=== PATIENT | female | born 1990 | race Caucasian/White ===

== ENCOUNTER 2019-12-05 14:16 | Outpatient (CLI) | payer OTHER, SELFPAY ==
--- NOTE | ~2019-12-05 | XR_ITS ---
XR toe 2nd RT min 2V DATE: 12/05/2019 14:41 INDICATION: Right toe caught on wall while walking 2 months ago. Pain. TECHNIQUE: 3 views COMPARISON: None FINDINGS: There is an intra-articular minimally displaced fracture of the head of the proximal phalan x, with some new bone formation identified. There is a linear intra-articular dorsal avulsion fracture of the base of the distal phalanx with min imal displacement. IMPRESSION: Fractures of the proximal and distal phalanges of the second digit Reviewed, dictated and finalized at location A.
== END 2019-12-05 14:17 | disposition home or self-care (01) ==
LOC: CHSIMG 14:20
PROVIDERS: PCP Family Medicine; Visit Provider Family Medicine
DX: M79.674 Pain in right toe(s) (principal)
CPT/HCPCS: 73660

== ENCOUNTER 2019-12-07 08:17 | Outpatient (CLI) | payer OTHER, SELFPAY ==
[2019-12-07 08:29] LABS: Basophils Absolute Auto 0.05 K/mm3 (0.00-0.10); Basophils Percent Auto 0.5 % (0.0-1.0); Eosinophils Percent Auto 1.9 % (1.0-6.0); Hematocrit 20.9 % (35.0-49.0); Immature Platelet Fraction Pct 22.8 % (1.0-7.0); Lymphocytes Absolute Auto 1.82 K/mm3 (1.10-4.50); Lymphocytes Percent Auto 17.3 % (18.0-42.0); Mean Corpuscular HGB Conc 28.2 g/dL (32.0-36.0); Mean Corpuscular Volume 63.7 fL (78.0-102.0); Monocytes Absolute Auto 0.61 K/mm3 (0.10-0.90); Monocytes Percent Auto 5.8 % (2.0-11.0); Neutrophils Absolute Auto 7.7 K/mm3 (1.7-7.2); Neutrophils Percent Auto 73.5 % (50.0-70.0); Nucleated Red Blood Cells Absolute Auto 0.03 K/mm3 (0.00-0.00); Nucleated Red Blood Cells Perc 0.3 % (0-0.0); Platelet Count Result 61 K/mm3 (150-420); Red Blood Count 3.28 M/mm3 (4.20-5.40); Red Cell Distribution Width 19.3 % (11.6-14.4); White Blood Count 10.5 K/mm3 (4.8-10.8)
[2019-12-07 08:47] LABS: Hemoglobin 5.9 g/dL (12.0-15.0)
== END 2019-12-07 08:18 | disposition home or self-care (01) ==
PROVIDERS: PCP Family Medicine; Visit Provider Family Medicine
DX: D64.9 Anemia, unspecified (principal)
CPT/HCPCS: 36415; 85025; 85055

== ENCOUNTER 2019-12-07 16:49 | Emergency (ER) | payer OTHER, SELFPAY ==
--- NOTE | ~2019-12-07 | US_ITS ---
EXAMINATION: US OB f/u add gest DATE: 12/07/2019 17:53 INDICATION: Severe anemia, gestation of unknown age due to absent care TECHNIQUE: Real-time ultrasound of the pelvis was performed. COMPARISON: None. FINDINGS: There are two living fetuses by a thin membrane. The placenta is anterior. Venous lakes are noted in the placenta. The amniotic fluid volume is normal. Fetus A: Presentation is vertex. heart rate is 167 beats per minute (bpm). The following biometric data were obtained: BPD: 4.3 cm. Head circumference: 16.1 cm. Abdominal circumference: 13.9 cm. Femur length: 2.9 cm. These measurements are concordant. Estimated weight: 282 g (+/-) 42 g. Estimated gestational age is 19 weeks,1 day +/- 9 days. Fetus B: Presentation is transverse. heart rate is 165 bpm. The following biometric data were obtained: BPD: 4.2 cm. Head circumference: 15.9 cm. Abdominal circumference: 13.7 cm. Femur length: 2.9 cm. These measurements are concordant. Estimated weight: 268 g (+/-) 40 g. Estimated gestational age is 18 weeks, 6 days +/- 9 days. IMPRESSION: 1. Living twin fetuses. 2. Normal placenta. 3. Gestational age by ultrasound of 19 weeks,1 day +/- 9 days ultrasound estimated date of delivery (FABIAN) of 05/01/2020 fetus A and 18 weeks,6 days +/- 9 days with an FABIAN of 05/03/2020 fetus B. Reviewed, dictated and finalized at location A. IMPRESSION: 1. Living twin fetuses. 2. Normal placenta. 3. Gestational age by ultrasound of 19 weeks,1 day +/- 9 days ultrasound paramjit mated date of delivery (FABIAN) of 05/01/2020 fetus A and 18 weeks,6 days +/- 9 day s with an FABIAN of 05/03/2020 fetus B.
[2019-12-07 16:53] VITALS: BP 107/64; PULSE 100; RESP 16; TEMP 36.6; O2SAT 100
--- NOTE | 2019-12-07 17:13 | ED.GENADULT ---
HPI - General Adult General Chief complaint: Recheck/Abnormal Lab/Rx Stated complaint: Possible , Anemia? Source: patient Mode of arrival: ambulatory Limitations: no limitations History of Present Illness HPI narrative: Patient is a 29-year-old G3, P2 who presents to the emergency department for evaluation of shortness of breath, low hemoglobin. Patient was referred to us by [facility], she was seen there and found to have symptomatic anemia with a hematocrit of 5.9. Patient does endorse some dyspnea with exertion. No lightheadedness or dizziness. No vaginal bleeding, abdominal pain or loss of fluids. No contraction-like pain. Patient states her last menstrual period was the end of July. Patient states that she has had very limited care because she did not feel . Prior 2 pregnancies were uncomplicated, resulted in spontaneous vaginal deliveries in [place] where her previous [employer] is. Patient has a history of hepatitis C which was active, and methamphetamine use. She denies other IV drug use. Related Data Home Medications Medication Instructions Recorded Confirmed No Home Medications 12/07/19 12/07/19 Allergies Allergy/AdvReac Type Severity Reaction Status Date / Time bee venom protein (honey bee) Allergy Swelling Verified 12/07/19 17:29 [bees] shellfish derived Allergy Unknown Verified 12/07/19 17:29 Review of Systems Review of Systems: Narrative: CONSTITUTIONAL: Denies fever, chills, or sweats. EYES: Denies visual changes ENT: Denies rhinorrhea, congestion, sore throat, or otalgia. CARDIOVASCULAR: Denies chest pain RESPIRATORY: Denies cough, reports shortness of breath with exertion GASTROINTESTINAL: Denies abdominal pain, nausea, vomiting GENITOURINARY: Denies dysuria or hematuria. SKIN: Denies rash or itching. MUSCULOSKELETAL: Denies back pain, joint pain, or myalgia. NEUROLOGIC: Denies headache, numbness, or weakness. [facility] Past Medical History Medical History (Updated 12/07/19 @ 19:15 by Elmira Martinez MD) Migraine Surgical History Surgical History (Updated 12/07/19 @ 17:18 by Elmira Martinez MD) No pertinent past surgical history Social History Social History (Updated 12/07/19 @ 17:18 by Elmira Martinez MD) Smoking status: Never smoker Alcohol intake: never Substance use: current Substance use type: amphetamines Gender identity (if verbalized by the patient): Female Exam Narrative: Exam Narrative: GENERAL: Awake, alert, conversant HEAD: Normocephalic, atraumatic. EYES: PERRLA and EOMI. ENT: Nares clear, no rhinorrhea or epistaxis. Mucous membranes moist. NECK: Supple. CHEST: No respiratory distress, breathing even and non labored HEART: Regular rate, sinus rhythm ABDOMEN:Non tender, gravid appearing, fundus palpable at the level of the umbilicus EXTREMITIES: Normal range of motion. No edema. SKIN: Warm, dry, no rash. NEURO:No focal deficits. Alert and oriented x3 Course Course Emergency Course: Patient presented for evaluation of symptomatic anemia as a referred from primary care physician. At the time of initial assessment, ABCs are intact, vital signs are stable. Patient is , not experienced any vaginal bleeding, loss of fluids. No care at this point. Laboratory work-up confirms severe anemia with hemoglobin of 5.9 and thrombocytopenia. Patient also with a urinary tract infection. Patient given oral antibiotics (Keflex) in the ER. Patient has twin on ultrasound. Mild transaminitis consistent with history of hepatitis. HIV lab test pending. Patient to be transferred over to [place] for evaluation by maternal- medicine and anemia work-up to occur at that facility. As the patient is hemodynamically stable, they advised against blood transfusion until they could evaluate her and perform a full. Patient was then transferred in stable condition. Vital Signs Vital signs: Vital Signs Te
[2019-12-07 17:33] VITALS: BP 115/88; PULSE 106; RESP 18; TEMP 36.8; O2SAT 100
[2019-12-07 17:33] LABS: Basophils Percent Auto 0.4 % (0.2-1.2); Eosinophils Absolute Auto 0.2 K/mm3 (0-0.3); Eosinophils Percent Auto 1.7 % (0-4.4); Hematocrit 21.3 % (37.0-47.0); Immature Granulocyte Absolute 0.11 K/mm3 (0.00-0.031); Immature Platelet Fraction Pct 25.9 % (0.9-11.2); Lymphocytes Percent Auto 16.1 % (18.3-44.2); Mean Corpuscular HGB Conc 27.7 g/dl (32-36); Mean Corpuscular Hemoglobin 17.8 pg (26-34); Mean Corpuscular Volume 64.2 fl (80-100); Monocytes Absolute Auto 0.7 K/mm3 (0.1-0.6); Monocytes Percent Auto 6.4 % (2.6-8.5); Neutrophils Absolute Auto 7.9 K/mm3 (1.3-6.7); Neutrophils Percent Auto 74.4 % (45.5-73.1); Platelet Count Result 63 k/mm3 (150-375); Red Blood Count 3.32 M/mm3 (4.2-5.4); Red Cell Distribution Width 19.6 % (11.5-14.5); White Blood Count 10.6 K/mm3 (4.5-10.0)
[2019-12-07 17:39] LABS: Add Urine Microscopic? YES; Appearance Urine Clear (Clear); Bacteria Urine 4+ /hpf; Bilirubin Urine Negative (Negative); Blood Urine Negative (Negative); Color Urine Yellow (Yellow); Glucose Urine UA Negative (Negative); Ketones Urine Negative (Negative); Leukocyte Esterase Ur Trace LEU/UL (Negative); Mucus Urine Few /lpf; Nitrate Urine Positive (Negative); Protein Urine 1+ mg/dL (Negative); RBC Urine 0-2 /hpf (0-2); Specific Grav Ur 1.021 (1.001-1.035); Squamous Epithelial Cell Urine Moderate /hpf (Few)
[2019-12-07 17:44] LABS: INR 0.9
[2019-12-07 17:45] LABS: Partial Thromboplastin Time 27.1 SECONDS (22.3-36.8)
[2019-12-07 17:45] LABS: Hemoglobin 5.9 g/dL (12.0-15.0)
[2019-12-07 17:47] LABS: Platelet Estimate Decreased (Adequate)
[2019-12-07 17:48] LABS: Anisocytosis 1+ (NORMAL); Hypochromasia 1+ (NORMAL)
[2019-12-07 17:49] LABS: Ovalocytes 1+ (NORMAL); Tear Drop Cells 1+ (NORMAL)
[2019-12-07 17:52] LABS: Alanine Aminotransferase 61 U/L (4-35); Albumin Level 3.6 g/dL (3.5-5.1); Alkaline Phosphatase 79 U/L (38-126); Aspartate Amino Transferase 65 U/L (14-36); Bilirubin,Total 0.2 mg/dL (0.2-1.3); Blood Urea Nitrogen 9 mg/dL (7-17); Calcium 8.5 mg/dL (8.4-10.2); Carbon Dioxide 22 mmol/L (22-30); Chloride 108 mmol/L (98-107); Estimated CRCL calculation 112 ml/min; Estimated Glomerular Filt Rate > 60; Glucose 76 mg/dL (65-105); Potassium 3.6 mmol/L (3.4-5.0); Sodium 135 mmol/L (137-145)
--- NOTE | 2019-12-07 18:26 | PC.NURSE ---
EDP and RN updated Pt. on their condition and the need for a blood transfusion and a transfer to a high risk OBGYN facility. Pt. states I am not ready to consent yet, I don't know what to do. I want to talk to my mom . RN and EDP both attempted to educate Pt. on need for these treatments and Pt. still denied but has not fully refused treatment. No consent signed at this time. EDP notified and is aware. 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
[2019-12-07 18:33] LABS: HIV 1/2 Ab P24 Ag Result Negative (Negative)
[2019-12-07 19:37] LABS: Barbiturate Screen Urine Negative (Negative); Benzodiazepines Screen Urine Negative (Negative)
[2019-12-07 19:50] LABS: Cannabinoid Screen Urine Negative (Negative); Cocaine Screen Urine Negative (Negative); Methadone Screen Urine Negative (Negative); Opiate Screen Urine Negative (Negative); Phencyclidine Screen Urine Negative (Negative)
[2019-12-07 19:58] LABS: Amphetamine Screen Urine Positive (Negative)
--- NOTE | 2019-12-07 19:59 | PC.NURSE ---
Called [facility] to transport patient to [place], Room 584. ETA [id number]
[2019-12-07] MEDS: CEPHALEXIN 500 MG CAPSULE PO (20:01)
--- NOTE | 2019-12-07 20:02 | PC.NURSE ---
ED report given to nurse Marilu on OB floor, by ALICE robb. Pt anita be going to room 584. Charge nurse notified. Pt did sign transfer form willing. Pt states she really would like and feel more comfortable if someone could be with her in her room. Pt seems a little anxious at this time. A snack was offered and given in hopes to calm Pt.
[2019-12-07 20:06] VITALS: BP 133/85; PULSE 98; RESP 21
[2019-12-07 20:29] VITALS: BP 137/87; PULSE 104; O2SAT 100
== END 2019-12-07 20:30 | disposition short-term general hospital (02) ==
PROVIDERS: Emergency Provider Emergency Medicine; PCP Family Medicine
DX: O99.012 Anemia complicating pregnancy, second trimester (principal); D64.9 Anemia, unspecified; O98.412 Viral hepatitis complicating pregnancy, second trimester; B19.20 Unspecified viral hepatitis C without hepatic coma; O99.112 Other diseases of the blood and blood-forming organs and certain disorders involving the immune mechanism complicating pregnancy, second trimester; D69.6 Thrombocytopenia, unspecified; Z3A.19 19 weeks gestation of pregnancy; O30.002 Twin pregnancy, unspecified number of placenta and unspecified number of amniotic sacs, second trimester
CPT/HCPCS: 36415; 76816; 80053; 80307; 81001; 81025; 85025; 85055; 85610; 85730; 86703; 86850; 86900; 86901; 99285; A9270; G0432

== ENCOUNTER 2020-04-17 15:01 | Emergency (ER) | payer OTHER, SELFPAY ==
--- NOTE | ~2020-04-17 | US_ITS ---
US OB limited 04/17/2020 15:55 Indication: with bleeding and clots. Procedure: High-resolution Limited obstetrical ultrasound Comparison: 12/07/2019 Findings: There are twin living intrauterine pregnancies in vertex presentation. Twin A has a heart r ate of 122 BPM. Twin B has a heart rate of 133 BPM. Placenta is anterior. Amniotic fluid is subjectiv ramona normal with largest pocket measuring 5 cm. Impression: 1: Twin living intrauterine in vertex presentation. Reviewed, dictated and finalized at location A. Impression: 1: Twin living intrauterine in vertex presentation.
[2020-04-17 16:00] VITALS: BP 128/90; PULSE 91; RESP 20; O2SAT 99
[2020-04-17] MEDS: SODIUM CHLORIDE 0.9% IV 1,000 ML 999 ML IV CONT (16:02)
[2020-04-17 16:06] VITALS: BP 135/89; PULSE 116; RESP 20; TEMP 36.7; O2SAT 98
[2020-04-17 16:14] LABS: Hematocrit 33.8 % (35.0-49.0); Hemoglobin 10.8 g/dL (12.0-15.0); Immature Platelet Fraction Pct 33.2 % (1.0-7.0); Mean Corpuscular Hemoglobin 26.5 pg (27.0-31.0); Platelet Count Result 36 K/mm3 (150-420); Red Blood Count 4.07 M/mm3 (4.20-5.40); Red Cell Distribution Width 19.3 % (11.6-14.4); White Blood Count 7.7 K/mm3 (4.8-10.8)
[2020-04-17 16:26] LABS: INR 0.9; Partial Thromboplastin Time 29.9 SEC (22.3-31.6); Prothrombin Time 9.6 Seconds (9.64-11.0)
[2020-04-17 16:36] LABS: Alanine Aminotransferase 40 U/L (14-59); Alkaline Phosphatase 305 U/L (46-116); Anion Gap 11 mmol/L (8-16); Aspartate Amino Transferase 51 U/L (15-37); Bilirubin,Total 0.3 mg/dL (0.00-1.00); Blood Urea Nitrogen 22 mg/dL (7-18); Calcium 8.1 mg/dL (8.5-10.1); Carbon Dioxide 17 mmol/L (21-32); Chloride 106 mmol/L (98-108); Estimated CRCL calculation 58 ml/min; Estimated Glomerular Filt Rate 51; Glucose 107 mg/dL (70-99); Osmolality Calculated 281 mOsm/kg (285-295); Potassium 3.8 mmol/L (3.5-5.1); Sodium 134 mmol/L (136-145); Total Protein 6.1 g/dL (6.4-8.2)
[2020-04-17 17:00] VITALS: BP 141/93; PULSE 89; RESP 20; O2SAT 98
--- NOTE | 2020-04-17 17:25 | ED.GENADULT ---
HPI - General Adult General Chief complaint: Vaginal Bleeding Stated complaint: bleeding/ Source: patient Mode of arrival: ambulatory History of Present Illness HPI narrative: This is a 29-year-old female that is 38 weeks with twins receives care at [facility] [place], presents with some a vaginal bleeding with passing clots that started around 2 3 in the afternoon, patient currently in no acute distress vital signs are stable no abdominal pain. Patient had noticed passing clots in vaginal bleeding earlier today with no fever chills no shortness of breath no chest pain. The patient is with twins 38 weeks and due date is May 01. Patient has a history of a according to patient a blood disorder with low platelets possibility of thrombocytopenia. Onset (ago): hour(s) Location: pelvis Severity: moderate Related Data Home Medications Medication Instructions Recorded Confirmed [id number]-FA 1 tablet PO DAILY 04/17/20 04/17/20 [] Allergies Allergy/AdvReac Type Severity Reaction Status Date / Time bee venom protein (honey bee) Allergy Swelling Verified 04/17/20 16:19 [bees] shellfish derived Allergy Unknown Verified 04/17/20 16:19 Review of Systems Review of Systems: All systems reviewed & are unremarkable except as noted in HPI and below PMFSH Past Medical History Medical History History of Migraine Surgical History Surgical History No pertinent past surgical history Social History Social History Smoking status: Never smoker Alcohol intake: never Substance use: current Substance use type: amphetamines Gender identity (if verbalized by the patient): Female Exam Const: General: no acute distress Orientation/consciousness: patient oriented x3 HENMT: Head: normal to inspection Eyes: Conjunctivae: conjunctivae normal Pupils: Equal, round and reactive pupils present EOM: EOMs intact bilaterally Neck: Neck: normal visual inspection, no lymphadenopathy and no meningeal signs Chest: Chest palpation & inspection: normal inspection of the chest Resp: Effort & Inspection: normal respiratory effort Auscultation: clear to auscultation bilaterally Cardio: Rate: regular rate Rhythm: regular rhythm GI: GI Palp: Yes Soft to palpation Percussion: Yes normal to percussion : General: Yes no CVA tenderness Other: pelvic exam shows some trickle of blood that appears to be pink tinged. Back/Spine/Pelvis: Back: no CVA tenderness Skin: General skin exam: normal color Rashes: no rashes Neuro: General: patient oriented x3 Psych: Appearance: grossly normal Mental Status: mental status grossly normal Affect: normal affect Course Course Emergency Course: Reassessment patient patient currently stable her vital signs are stable with a blood pressure 135/89 with a heart rate of 116 O2 sats of 98%. After pelvic exam visualized blood that appeared with pink tinged from the the vaginal vault. Called [facility] in [place] and discussed case with some the OB department with some accepting physician Dr. VANCE. And [facility] will be sending a OB team/ambulance to transport patient to their facility. Obtained ultrasound which showed an anterior placenta /amniotic fluid subjectively normal with the largest pocket measuring 5cm. heart tones per ultrasound is a twin with heart tone in the [facility] at 1:22 a.m. and baby Mackenzie at 1:33 a.m.. Blood was drawn which showed an H&H of 10 and 33.8 with a platelet count of 36. patient and family informed about being transported to [facility] in [place] for further evaluation by the OB team. Vital Signs Vital signs: Vital Signs Temperature 36.7 C 04/17/20 16:06 Pu
--- NOTE | 2020-04-17 18:20 | PC.NURSE ---
1715 report given to Marilu JENKINS who is on the Transport team on her way to scrap picker pt 1815 pt update called to Marilu JENKINS pt having more clots at this time with small amt of cramping pt voided on bedpan and placed on her left side heart tones assessed baby B 166 baby A 155 Transport should be here in 15-20 mins
[2020-04-17 18:30] VITALS: BP 129/71; PULSE 95; RESP 20; O2SAT 99
--- NOTE | 2020-04-17 18:45 | PC.NURSE ---
1840 [facility] transfer service here to take pt
== END 2020-04-17 19:00 | disposition short-term general hospital (02) ==
PROVIDERS: Emergency Provider Emergency Medicine
DX: O46.93 Antepartum hemorrhage, unspecified, third trimester (principal)
CPT/HCPCS: 36415; 76815; 80053; 85027; 85055; 85610; 85730; 96360; 99285; J7030

== ENCOUNTER 2020-04-30 11:38 | Outpatient (CLI) | payer OTHER, SELFPAY ==
[2020-04-30 11:52] LABS: Basophils Absolute Auto 0.03 K/mm3 (0.00-0.10); Basophils Percent Auto 0.2 % (0.0-1.0); Eosinophils Absolute Auto 0.15 K/mm3 (0.02-0.50); Eosinophils Percent Auto 1.2 % (1.0-6.0); Hematocrit 35.8 % (35.0-49.0); Hemoglobin 11.1 g/dL (12.0-15.0); Immature Granulocyte Absolute 0.17 K/mm3 (0.00-0.00); Immature Granulocyte Percent A 1.3 % (0.0-0.0); Immature Platelet Fraction Pct 8.8 % (1.0-7.0); Lymphocytes Absolute Auto 1.17 K/mm3 (1.10-4.50); Lymphocytes Percent Auto 9.2 % (18.0-42.0); Mean Corpuscular Hemoglobin 29.4 pg (27.0-31.0); Mean Corpuscular Volume 94.7 fL (78.0-102.0); Monocytes Absolute Auto 0.61 K/mm3 (0.10-0.90); Monocytes Percent Auto 4.8 % (2.0-11.0); Neutrophils Absolute Auto 10.6 K/mm3 (1.7-7.2); Neutrophils Percent Auto 83.3 % (50.0-70.0); Platelet Count Result 34 K/mm3 (150-420); Red Blood Count 3.78 M/mm3 (4.20-5.40); Red Cell Distribution Width 26.7 % (11.6-14.4); White Blood Count 12.7 K/mm3 (4.8-10.8)
== END 2020-04-30 11:39 | disposition home or self-care (01) ==
LOC: CHSLAB 11:41
PROVIDERS: PCP Family Medicine; Visit Provider Family Medicine
DX: D61.818 Other pancytopenia (principal)
CPT/HCPCS: 36415; 85025; 85055

== ENCOUNTER 2021-01-11 22:30 | Emergency (ER) | payer OTHER, SELFPAY ==
[2021-01-11 22:40] VITALS: BP 123/71; PULSE 78; RESP 20; TEMP 36.8; O2SAT 99
--- NOTE | 2021-01-11 22:49 | ED.DENTAL ---
HPI - Dental/Oral General Chief complaint: Dental/Oral Stated complaint: tooth pain on lower jaw both sides Time Seen by Provider: 01/11/21 22:49 Source: patient Mode of arrival: ambulatory Limitations: no limitations History of Present Illness HPI Narrative: 28-year-old woman with history of ITP comes in today complaining of right lower jaw pain that radiates to her ear and mormonism. She states that she has some problem teeth in her right lower jaw. She has pain radiating to her right ear and mormonism. She denies fever, nausea, vomiting, difficulty swallowing, difficulty breathing, cough or cold symptoms. She has an IUD. Complaint: tooth pain Onset (ago): day(s) (5) Duration: constant Severity: severe Relieving factors: nothing Exacerbating factors: chewing, cold and drinking fluids Context: history of dental caries and poor dental care Associated symptoms: gum swelling Treatment prior to arrival: none Related Data Allergies Allergy/AdvReac Type Severity Reaction Status Date / Time bee venom protein (honey bee) Allergy Swelling Verified 04/17/20 16:19 [bees] shellfish derived Allergy Unknown Verified 04/17/20 16:19 Review of Systems Review of Systems: All systems reviewed & are unremarkable except as noted in HPI and below Constitutional: Constitutional: Denies chills, Denies fever(s) and Denies weakness Eyes: Eyes: Denies change in vision and Denies photophobia ENT: Denies nasal congestion and Denies sore throat Cardiovascular: Cardiovascular: Denies chest pain and Denies radiating jaw, neck or arm pain Respiratory: Respiratory: Denies cough and Denies dyspnea Gastrointestinal: Gastrointestinal: Denies nausea and Denies vomiting Integumentary/Breasts: Skin/Breast: Denies pruritus, Denies erythema and Denies rash Neurologic: Denies vertigo and Denies dizziness Hematologic/Lymphatic: Hematologic/Lymphatic: Reports easy bleeding and Reports easy bruising Allergic/Immunologic: Allergic/Immunologic: Denies lip swelling and Denies throat swelling PMFSH Past Medical History Medical History (Updated 01/11/21 @ 23:01 by Roland Richards MD) Chronic ITP (idiopathic thrombocytopenia) History of Migraine Surgical History Surgical History No pertinent past surgical history Social History Social History Smoking status: Never smoker Alcohol intake: never Substance use: current Substance use type: amphetamines Gender identity (if verbalized by the patient): Female Exam Const: General: healthy appearing and alert Orientation/consciousness: patient oriented x3 Limitations: no limitations Other: [id number] acute distress HENMT: Head: normal to inspection Ears: external ears normal, EAC's normal and Abnormal EAC present General nose exam: Normal nares present Face and sinus: normal facial exam Mouth: Yes moist mucous membranes Throat: posterior oropharynx normal Other: Right lower molars are decayed to the gum line. mild gingival swelling. No discharge. Neck: Neck: normal visual inspection and no lymphadenopathy Resp: Effort & Inspection: normal respiratory effort and labored Auscultation: clear to auscultation bilaterally, rales, rhonchi and wheezes Cardio: Rate: regular rate Rhythm: regular rhythm Heart sounds: no murmurs Skin: General skin exam: normal color, no jaundice and no pallor Rashes: no rashes Neuro: General: patient oriented x3, moves all extremities, no focal motor deficits and CN's II-XI intact bilaterally Speech: normal speech Gait exam (Neuro): Normal gait present Extrem: General: no clubbing, cyanosis or edema Psych: Appearance: grossly normal and well kempt Mental Status: mental status grossly normal Affect: normal affect Attitude: cooperative Thought content: Yes Normal thought content present Discharge Plan Discharge Clini
[2021-01-11 23:07] VITALS: BP 122/74; PULSE 87; RESP 20; O2SAT 99
== END 2021-01-11 23:07 | disposition home or self-care (01) ==
PROVIDERS: Emergency Provider Emergency Medicine; PCP Family Medicine
DX: K02.9 Dental caries, unspecified (principal)
CPT/HCPCS: 99283

== ENCOUNTER 2021-03-25 13:15 | Emergency (ER) | payer OTHER, SELFPAY ==
[2021-03-25 13:22] VITALS: BP 111/74; PULSE 82; RESP 20; TEMP 36.3; O2SAT 100
--- NOTE | 2021-03-25 13:37 | ED.GENADULT ---
HPI - General Adult General Chief complaint: Dental/Oral Stated complaint: Tooth pain Source: patient Mode of arrival: ambulatory Limitations: no limitations History of Present Illness HPI narrative: Hillary is a 30F with a PMH of ITP, hep C s/p treatment and poor dentition that presented to the ED with right sided dental pain that radiates to the right ear. She always has some pain but it has become worse over the last few days and her face has started to swell. No fevers, chills, N/V or trouble swallowing or breathing. Related Data Home Medications Medication Instructions Recorded Confirmed [id number]-eneughfjuhull-zelbsvrz 2 tablet PO Q4-6H PRN 03/25/21 03/25/21 [Excedrin Extra Strength] Allergies Allergy/AdvReac Type Severity Reaction Status Date / Time bee venom protein (honey bee) Allergy Swelling Verified 03/25/21 13:35 [bees] shellfish derived Allergy Unknown Verified 03/25/21 13:35 Review of Systems Constitutional: Constitutional: Reports no additional constitutional complaints Eyes: Eyes: Reports no additional eye complaints ENT: Reports as per HPI Cardiovascular: Cardiovascular: Reports no additional cardiovascular complaints Respiratory: Respiratory: Reports no additional respiratory complaints Gastrointestinal: Gastrointestinal: Reports no additional gastrointestinal complaints Genitourinary: Genitourinary: Reports no additional female genitourinary complaints Musculoskeletal: Musculoskeletal: Reports no additional musculoskeletal complaints Integumentary/Breasts: Skin/Breast: Reports system reviewed and no additional complaints, except as docu Neurologic: Reports system reviewed and no additional complaints, except as documented Psychiatric: Psychiatric: Reports no additional psychiatric complaints Endocrine: Endocrine: Reports no additional endocrine complaints Hematologic/Lymphatic: Hematologic/Lymphatic: Reports no additional hematologic/lymphatic complaints Allergic/Immunologic: Allergic/Immunologic: Reports no additional allergic/immunologic complaints [facility] Past Medical History Medical History Chronic ITP (idiopathic thrombocytopenia) History of Migraine Surgical History Surgical History No pertinent past surgical history Social History Social History Smoking status: Never smoker Alcohol intake: never Substance use: current Substance use type: amphetamines Gender identity (if verbalized by the patient): Female Exam Const: General: no acute distress and alert Orientation/consciousness: patient oriented x3 Limitations: No altered mental status HENMT: Head: normal to inspection Other: atraumatic. Poor dentition particularly in the right upper and lower molars. She has some broken teeth with swelling and they are very TTP. Right cheek is a little swollen. Right ear TM wnl. Eyes: Conjunctivae: conjunctivae normal Pupils: Equal, round and reactive pupils present Neck: Neck: normal visual inspection Chest: Chest palpation & inspection: normal inspection of the chest Resp: Effort & Inspection: normal respiratory effort Cardio: Rate: regular rate GI: Inspection: non-distended GI Palp: Yes Soft to palpation, No Tenderness to palpation present (GI) and No Guarding due to palpation present (GI) Skin: General skin exam: normal color Rashes: no rashes Neuro: General: patient oriented x3, moves all extremities and no meningeal signs Extrem: General: normal to inspection Psych: Appearance: grossly normal Mental Status: mental status grossly normal Thought content: Yes Normal thought content present Course Course Emergency Course: Ordered Vina and Augmentin. Discharged with Augmentin and Vina. Hillary was educated on the risks and benefits of opioid therapy including depende
[2021-03-25] MEDS: HYDROcodone/acetaminophen (*CRX) 5-325 MG TABLET 1 TAB PO (13:47)
[2021-03-25] MEDS: AMOXICILLIN/CLAVULANATE K 875-125 MG TAB 1 TABLET PO (13:47)
[2021-03-25 13:53] VITALS: BP 115/83; PULSE 75; RESP 20; TEMP 36.7; O2SAT 99
== END 2021-03-25 13:55 | disposition home or self-care (01) ==
PROVIDERS: Emergency Provider Family Medicine; PCP Family Medicine
DX: K02.9 Dental caries, unspecified (principal)
CPT/HCPCS: 99283; A9270

== ENCOUNTER 2021-06-08 14:51 | Outpatient (CLI) | payer OTHER, SELFPAY ==
--- NOTE | ~2021-06-08 | XR_ITS ---
EXAMINATION: XR lumbar spine 2-3V DATE: 06/08/2021 15:25 INDICATION: Low back pain. TECHNIQUE: 3 views of lumbar spine were obtained. COMPARISON: CT abdomen and pelvis 10/02/2016 FINDINGS: Bone alignment is normal. L5 is a limbus vertebra. Vertebral body heights and intervertebra l disc heights are normal. The facet joints are unremarkable. There is an intrauterine device in expe cted position. IMPRESSION: 1. No etiology for the patient's symptoms. Reviewed, dictated and finalized at location A. [facility] CHIEF
[2021-06-08 15:10] LABS: Basophils Absolute Auto 0.07 K/mm3 (0.00-0.10); Basophils Percent Auto 0.8 % (0.0-1.0); Eosinophils Absolute Auto 0.32 K/mm3 (0.02-0.50); Eosinophils Percent Auto 3.7 % (1.0-6.0); Hematocrit 39.6 % (35.0-49.0); Hemoglobin 12.7 g/dL (12.0-15.0); Immature Granulocyte Absolute 0.03 K/mm3 (0.00-0.00); Immature Granulocyte Percent A 0.3 % (0.0-0.0); Lymphocytes Absolute Auto 1.71 K/mm3 (1.10-4.50); Lymphocytes Percent Auto 19.6 % (18.0-42.0); Mean Corpuscular HGB Conc 32.1 g/dL (32.0-36.0); Mean Corpuscular Volume 90.4 fL (78.0-102.0); Mean Platelet Volume 12.7 fl (9.2-11.8); Monocytes Percent Auto 4.6 % (2.0-11.0); Neutrophils Absolute Auto 6.2 K/mm3 (1.7-7.2); Platelet Count Result 227 K/mm3 (150-420); Red Blood Count 4.38 M/mm3 (4.20-5.40); Red Cell Distribution Width 13.2 % (11.6-14.4); White Blood Count 8.7 K/mm3 (4.8-10.8)
[2021-06-08 15:13] LABS: Add Urine Microscopic? NO; Appearance Urine Clear (Clear); Bilirubin Urine Negative (Negative); Blood Urine Negative (Negative); Color Urine Light Yellow (Yellow); Glucose Urine UA Negative (Negative); Ketones Urine Negative (Negative); Leukocyte Esterase Ur Negative (Negative); Nitrate Urine Negative (Negative); Protein Urine Negative (Negative)
[2021-06-08 16:53] LABS: Alanine Aminotransferase 20 U/L (14-59); Albumin Level 3.8 g/dL (3.4-5.0); Alkaline Phosphatase 73 U/L (46-116); Anion Gap 8 mmol/L (8-16); Aspartate Amino Transferase 11 U/L (15-37); Bilirubin,Total 0.2 mg/dL (0.00-1.00); Blood Urea Nitrogen 15 mg/dL (7-18); Carbon Dioxide 27 mmol/L (21-32); Chloride 104 mmol/L (98-108); Estimated Glomerular Filt Rate > 60; Glucose 81 mg/dL (70-99); Osmolality Calculated 287 mOsm/kg (285-295); Potassium 4.5 mmol/L (3.5-5.1); Sodium 139 mmol/L (136-145)
== END 2021-06-08 14:52 | disposition home or self-care (01) ==
LOC: CHSLAB 14:54
PROVIDERS: PCP Family Medicine; Visit Provider Family Medicine
DX: N12 Tubulo-interstitial nephritis, not specified as acute or chronic (principal); M54.50 Low back pain, unspecified
CPT/HCPCS: 36415; 72100; 80053; 81003; 85025; 87077; 87086; 87088; 87186

== ENCOUNTER 2021-06-22 15:41 | Emergency (ER) | payer OTHER, SELFPAY ==
--- NOTE | ~2021-06-22 | CT_ITS ---
EXAMINATION: CT abdomen pelvis wo con DATE: 06/22/2021 17:06 INDICATION: Left flank pain. TECHNIQUE: Computed tomography (CT) of the abdomen and pelvis was performed without intravenous contr ast. Automated exposure control and iterative reconstruction technique were employed. The dose-length product was 357.24 mGy-cm. COMPARISON: CT abdomen and pelvis 10/02/2016 FINDINGS: The visualized portions of the lung bases demonstrate mild atelectasis. No pleural effusion . The heart size is normal. No pericardial effusion. The liver, gallbladder, spleen, pancreas, adrena l glands, and right kidney are normal. There are two 1 mm stones in left kidney. Again seen are phleb oliths in the pelvis. There is an intrauterine device in expected position. There is a tampon in the vagina. There are no dilated loops of bowel. The appendix is normal. There are no pathologically enla rged lymph nodes. There is no free intraperitoneal fluid. The bones are unremarkable. IMPRESSION: 1. Small nonobstructing left kidney stones. Reviewed, dictated and finalized at location A. TELEPHONIC
[2021-06-22 16:02] VITALS: BP 128/80; PULSE 110; RESP 18; TEMP 37; O2SAT 96
[2021-06-22 16:02] LABS: Add Urine Microscopic? YES; Appearance Urine Clear (Clear); Bilirubin Urine Negative (Negative); Blood Urine 1+ (Negative); Color Urine Yellow (Yellow); Glucose Urine UA Negative (Negative); Ketones Urine Negative (Negative); Leukocyte Esterase Ur Trace LEU/UL (Negative); Nitrate Urine Negative (Negative); Protein Urine Trace (Negative); Specific Grav Ur 1.015 (1.010-1.020)
--- NOTE | 2021-06-22 16:04 | ED.FEMALEGU ---
HPI - Female Genitourinary General Chief complaint: Urogenital-Female Stated complaint: possible kidney infection Source: patient and RN notes reviewed Mode of arrival: ambulatory Limitations: no limitations History of Present Illness MD elicited complaint: dysuria, UTI and flank pain (left) Pertinent past history: recurrent UTIs Onset (ago): hour(s) (12) Location of symptoms: flank Severity: severe Quality of pain: sharp and stabbing Consistency: intermittent Vaginal discharge: none Vaginal bleeding: none Urinary symptoms: Urgency and Frequency Exacerbating factors: urination Relieving factors: none Associated symptoms: nausea Treatment prior to arrival: none Sexual activity: No Patient : No Related Data Home Medications Medication Instructions Recorded Confirmed [id number]-amqmecyorytzf-jfvrwwun 2 tablet PO Q4-6H PRN 03/25/21 03/25/21 [Excedrin Extra Strength] Allergies Allergy/AdvReac Type Severity Reaction Status Date / Time bee venom protein (honey bee) Allergy Swelling Verified 06/22/21 16:01 [bees] shellfish derived Allergy Unknown Verified 06/22/21 16:01 Review of Systems Review of Systems: All systems reviewed & are unremarkable except as noted in HPI and below PMFSH Past Medical History Medical History (Updated 06/22/21 @ 18:00 by Lavon Dave MD) Chronic ITP (idiopathic thrombocytopenia) History of kidney stones History of Migraine Surgical History Surgical History (Updated 06/22/21 @ 16:13 by Lavon Dave MD) History of Social History Social History Smoking status: Never smoker Alcohol intake: never Substance use: current Substance use type: amphetamines Gender identity (if verbalized by the patient): Female Exam Const: General: healthy appearing, no acute distress and alert Nutritional Appearance: well nourished Orientation/consciousness: patient oriented x3 Other: female nurse in room during examination. HENMT: Head: normal to inspection Ears: external ears normal General nose exam: Normal external nose present Face and sinus: normal facial exam Mouth: Yes moist mucous membranes Eyes: Conjunctivae: conjunctivae normal Pupils: Equal, round and reactive pupils present EOM: EOMs intact bilaterally Neck: Neck: normal visual inspection Resp: Effort & Inspection: normal respiratory effort Auscultation: clear to auscultation bilaterally Cardio: Rate: regular rate Rhythm: regular rhythm GI: GI Palp: Yes Soft to palpation, No Tenderness to palpation present (GI) and No Rebound tenderness present Auscultation: normal bowel sounds : General: Yes CVA tenderness on the left Back/Spine/Pelvis: Cervical Spine: cervical ROM normal Thoracic/Lumbar Spine: thoraco-lumbar ROM normal Skin: General skin exam: normal color Rashes: no rashes Neuro: General: patient oriented x3, moves all extremities, no meningeal signs and no focal motor deficits Speech: normal speech Gait exam (Neuro): Normal gait present Extrem: General: normal to inspection and no clubbing, cyanosis or edema Psych: Mental Status: mental status grossly normal Affect: normal affect Attitude: cooperative Thought content: Yes Normal thought content present Course Vital Signs Vital signs: Vital Signs Temperature 37.0 C 06/22/21 16:02 Pulse Rate 110 H 06/22/21 16:02 Respiratory Rate 18 06/22/21 16:02 Blood Pressure 128/80 06/22/21 16:02 Pulse Oximetry 96 06/22/21 16:02 Temperature 37.0 C 06/22/21 16:02 Pulse Rate 88 06/22/21 18:08 Respiratory Rate 18 06/22/21 18:08 Blood Pressure 107/76 06/22/21 18:08 Pulse Oximetry 97 06/22/21 18:08 MDM - Female Genitourinary Lab Data Attestation: I reviewed the patient's lab results. Result diagrams: 06/22/21 16:25 06/22/21 16:25 Labs: Lab Results 06/22/21 06/22/21 06/22/21 Range/Unit
[2021-06-22 16:08] LABS: Bacteria Urine Trace /hpf; Squamous Epithelial Cell Urine Few /hpf (Few); WBC Urine 0-3 /hpf (0-3)
[2021-06-22 16:32] LABS: Basophils Absolute Auto 0.08 K/mm3 (0.00-0.10); Basophils Percent Auto 0.5 % (0.0-1.0); Eosinophils Absolute Auto 0.23 K/mm3 (0.02-0.50); Eosinophils Percent Auto 1.4 % (1.0-6.0); Hematocrit 41.7 % (35.0-49.0); Hemoglobin 13.4 g/dL (12.0-15.0); Immature Granulocyte Absolute 0.07 K/mm3 (0.00-0.00); Immature Granulocyte Percent A 0.4 % (0.0-0.0); Immature Platelet Fraction Pct 28.3 % (1.0-7.0); Lymphocytes Absolute Auto 1.11 K/mm3 (1.10-4.50); Lymphocytes Percent Auto 6.8 % (18.0-42.0); Mean Corpuscular HGB Conc 32.1 g/dL (32.0-36.0); Mean Corpuscular Hemoglobin 29.3 pg (27.0-31.0); Monocytes Absolute Auto 0.89 K/mm3 (0.10-0.90); Monocytes Percent Auto 5.4 % (2.0-11.0); Neutrophils Absolute Auto 14.1 K/mm3 (1.7-7.2); Neutrophils Percent Auto 85.5 % (50.0-70.0); Platelet Count Result 29 K/mm3 (150-420); Red Blood Count 4.58 M/mm3 (4.20-5.40); Red Cell Distribution Width 13.8 % (11.6-14.4); White Blood Count 16.4 K/mm3 (4.8-10.8)
[2021-06-22] MEDS: KETOROLAC 30 MG/ML VIAL (*BKC) IV PUSH (16:41)
[2021-06-22 16:44] LABS: Alanine Aminotransferase 15 U/L (14-59); Albumin Level 3.8 g/dL (3.4-5.0); Alkaline Phosphatase 72 U/L (46-116); Anion Gap 10 mmol/L (8-16); Aspartate Amino Transferase < 10 U/L (15-37); Bilirubin,Total 0.6 mg/dL (0.00-1.00); Blood Urea Nitrogen 12 mg/dL (7-18); Calcium 8.5 mg/dL (8.5-10.1); Carbon Dioxide 26 mmol/L (21-32); Chloride 102 mmol/L (98-108); Estimated CRCL calculation 95 ml/min; Estimated Glomerular Filt Rate > 60; Glucose 108 mg/dL (70-99); Osmolality Calculated 286 mOsm/kg (285-295); Potassium 3.9 mmol/L (3.5-5.1); Sodium 138 mmol/L (136-145); Total Protein 7.3 g/dL (6.4-8.2)
[2021-06-22 16:50] LABS: CRP 1.5 mg/dL (0.0-0.9)
[2021-06-22 18:08] VITALS: BP 107/76; PULSE 88; RESP 18; O2SAT 97
== END 2021-06-22 18:09 | disposition home or self-care (01) ==
PROVIDERS: Emergency Provider Emergency Medicine; PCP Family Medicine
DX: R10.9 Unspecified abdominal pain (principal); D69.3 Immune thrombocytopenic purpura; Z87.442 Personal history of urinary calculi
CPT/HCPCS: 36415; 74176; 80053; 81001; 85025; 85055; 86140; 96374; 99283; 99284; J1885

== ENCOUNTER 2021-09-26 22:37 | Emergency (ER) | payer OTHER, SELFPAY ==
[2021-09-26 23:00] VITALS: BP 126/92; PULSE 73; RESP 17; TEMP 36.8; O2SAT 99
--- NOTE | 2021-09-26 23:04 | ED.DENTAL ---
HPI - Dental/Oral General Chief complaint: Dental/Oral Stated complaint: toothache Time Seen by Provider: 09/26/21 22:39 Source: patient Mode of arrival: ambulatory Limitations: no limitations History of Present Illness HPI Narrative: Previously well 31-year-old woman comes in today complaining of right-sided jaw pain and swelling that started few days ago. Patient states that she has had some lower jaw dental problems for some time. The pain radiates to right ear and the right side of her face. She denies fever, difficulty swallowing and difficulty breathing. She denies . She is not . Complaint: tooth pain Location: Tooth # (30,31) Onset (ago): day(s) (2-3) Duration: constant Severity: severe Relieving factors: nothing Exacerbating factors: chewing, cold and heat Context: history of dental caries Associated symptoms: gum swelling and ear pain Treatment prior to arrival: oral analgesic Related Data Allergies Allergy/AdvReac Type Severity Reaction Status Date / Time bee venom protein (honey bee) Allergy Swelling Verified 09/26/21 23:12 [bees] shellfish derived Allergy Unknown Verified 09/26/21 23:12 Review of Systems Review of Systems: All systems reviewed & are unremarkable except as noted in HPI and below Constitutional: Constitutional: Denies chills and Denies fever(s) ENT: Denies dysphagia, Denies nasal congestion and Denies sore throat Respiratory: Respiratory: Denies cough and Denies dyspnea Gastrointestinal: Gastrointestinal: Denies nausea and Denies vomiting Integumentary/Breasts: Skin/Breast: Denies pruritus, Denies erythema and Denies rash Allergic/Immunologic: Allergic/Immunologic: Denies lip swelling, Denies throat swelling and Denies tongue swelling PMFSH Past Medical History Medical History Chronic ITP (idiopathic thrombocytopenia) History of kidney stones History of Migraine Surgical History Surgical History History of Social History Social History Smoking status: Never smoker Alcohol intake: never Substance use: current Substance use type: amphetamines Gender identity (if verbalized by the patient): Female Exam Const: General: healthy appearing and alert Orientation/consciousness: patient oriented x3 Limitations: no limitations Other: Moderate acute distress. HENMT: Head: normal to inspection Ears: external ears normal, TM's normal bilaterally and EAC's normal Face and sinus: normal facial exam Throat: posterior oropharynx normal Other: Dental decay to the gumline on the 2nd and 3rd molars on the right lower jaw. Minimal gum swelling. No jaw swelling. No adenopathy. Eyes: Conjunctivae: conjunctivae normal Pupils: Equal, round and reactive pupils present EOM: EOMs intact bilaterally Resp: Effort & Inspection: normal respiratory effort and not labored Auscultation: clear to auscultation bilaterally, no rales, no rhonchi and no wheezes Cardio: Rate: regular rate Rhythm: regular rhythm Heart sounds: no murmurs Skin: General skin exam: normal color, no jaundice and no pallor Rashes: no rashes Neuro: General: patient oriented x3, moves all extremities, no focal motor deficits and CN's II-XI intact bilaterally Speech: normal speech Gait exam (Neuro): Normal gait present Extrem: General: normal to inspection and no clubbing, cyanosis or edema Psych: Appearance: grossly normal and well kempt Mental Status: mental status grossly normal Affect: normal affect Attitude: cooperative Thought content: Yes Normal thought content present Discharge Plan Discharge Clinical Impression: Toothache, Dental abscess Patient Disposition: Home, Self-Care Condition: Stable Instructions: Antibiotic Form, Dental Abscess (ED) Additional Instructions: Cristobal
[2021-09-27 00:12] VITALS: BP 121/97; PULSE 79; RESP 17; TEMP 36.6; O2SAT 98
== END 2021-09-27 00:14 | disposition home or self-care (01) ==
PROVIDERS: Emergency Provider Emergency Medicine; PCP Family Medicine
DX: K08.89 Other specified disorders of teeth and supporting structures (principal); K04.7 Periapical abscess without sinus
CPT/HCPCS: 99283

== ENCOUNTER 2021-11-09 13:33 | Outpatient (CLI) | payer OTHER, SELFPAY ==
--- NOTE | ~2021-11-09 | XR_ITS ---
EXAM: XR toe 2nd RT min 2V, XR foot RT 2V HISTORY: pain, toe is curved which is abnormal for pt COMPARISON: None available FINDINGS: Normal mineralization. No acute fracture or dislocation. Ossified protuberance of the medi al and distal aspect of the second proximal phalange which distorts the joint at the second PIP causi ng lateral angulation of the distal bones. Joint spaces maintained. No erosion or periosteal change. Soft tissues within normal limits. Small os navicularis. Small os trigonum. IMPRESSION: Presumed old trauma at the distal aspect of the proximal right second phalange, healed in deformity. Alternatively this may represent a small sessile osteochondroma. If clinical history is not consisten t with prior trauma, consider MRI of the right second toe for further evaluation. Reviewed, dictated and finalized at [facility]. IMPRESSION: Presumed old trauma at the distal aspect of the proximal right second phalange, healed in deformity. Alternatively this may represent a small sessile osteocho ndroma. If clinical history is not consistent with prior trauma, consider MRI o f the right second toe for further evaluation.
== END 2021-11-09 13:34 | disposition home or self-care (01) ==
LOC: CHSIMG 13:36
PROVIDERS: PCP Family Medicine; Visit Provider Family Medicine
DX: M79.674 Pain in right toe(s) (principal)
CPT/HCPCS: 73620; 73660

== ENCOUNTER 2021-12-09 14:37 | Outpatient (CLI) | payer OTHER, SELFPAY ==
[2021-12-09 15:40] LABS: SARS-CoV-2 RNA PCR Positive (Negative)
== END 2021-12-09 14:38 | disposition home or self-care (01) ==
LOC: CHSLAB 14:41
PROVIDERS: PCP Family Medicine
DX: U07.1 COVID-19 (principal); Z01.818 Encounter for other preprocedural examination
CPT/HCPCS: C9803; U0003; U0005

== ENCOUNTER 2022-03-08 15:05 | Outpatient (CLI) | payer OTHER, SELFPAY ==
[2022-03-08 15:57] LABS: SARS-CoV-2 RNA PCR Positive (Negative)
== END 2022-03-08 15:06 | disposition home or self-care (01) ==
LOC: CHSLAB 15:07
PROVIDERS: PCP Family Medicine; Visit Provider Nurse Practitioner Family
DX: U07.1 COVID-19 (principal); R52 Pain, unspecified
CPT/HCPCS: C9803; U0003; U0005

== ENCOUNTER 2022-03-17 18:29 | Outpatient (CLI) | payer OTHER, SELFPAY ==
[2022-03-17 18:54] LABS: Add Urine Microscopic? NO; Appearance Urine Clear (Clear); Bilirubin Urine Negative (Negative); Blood Urine Negative (Negative); Color Urine Yellow (Yellow); Glucose Urine UA Negative (Negative); Ketones Urine Negative (Negative); Leukocyte Esterase Ur Negative (Negative); Nitrate Urine Negative (Negative); Protein Urine Negative (Negative); Urobilinogen Urine 0.2 mg/dL (0.2-1.0)
[2022-03-17 18:55] LABS: Basophils Absolute Auto 0.05 K/mm3 (0.00-0.10); Basophils Percent Auto 0.8 % (0.0-1.0); Eosinophils Absolute Auto 0.41 K/mm3 (0.02-0.50); Eosinophils Percent Auto 6.2 % (1.0-6.0); Hematocrit 37.5 % (35.0-49.0); Hemoglobin 11.8 g/dL (12.0-15.0); Immature Granulocyte Absolute 0.02 K/mm3 (0.00-0.00); Immature Granulocyte Percent A 0.3 % (0.0-0.0); Lymphocytes Absolute Auto 1.67 K/mm3 (1.10-4.50); Lymphocytes Percent Auto 25.4 % (18.0-42.0); Mean Corpuscular HGB Conc 31.5 g/dL (32.0-36.0); Mean Corpuscular Hemoglobin 29.1 pg (27.0-31.0); Mean Corpuscular Volume 92.4 fL (78.0-102.0); Mean Platelet Volume 13.5 fl (9.2-11.8); Monocytes Percent Auto 6.1 % (2.0-11.0); Neutrophils Percent Auto 61.2 % (50.0-70.0); Platelet Count Result 118 K/mm3 (150-420); Red Blood Count 4.06 M/mm3 (4.20-5.40); Red Cell Distribution Width 12.7 % (11.6-14.4); White Blood Count 6.6 K/mm3 (4.8-10.8)
[2022-03-17 19:18] LABS: Alanine Aminotransferase 16 U/L (14-59); Albumin Level 3.8 g/dL (3.4-5.0); Alkaline Phosphatase 54 U/L (46-116); Amylase 28 U/L (25-115); Anion Gap 6 mmol/L (8-16); Aspartate Amino Transferase 13 U/L (15-37); Bilirubin,Total 0.3 mg/dL (0.00-1.00); Blood Urea Nitrogen 19 mg/dL (7-18); Calcium 8.5 mg/dL (8.5-10.1); Carbon Dioxide 23 mmol/L (21-32); Chloride 108 mmol/L (98-108); Estimated Glomerular Filt Rate > 60; Glucose 75 mg/dL (70-99); Lipase 75 U/L (73-393); Osmolality Calculated 285 mOsm/kg (285-295); Potassium 3.8 mmol/L (3.5-5.1); Sodium 137 mmol/L (136-145); Thyroid Stimulating Hormone 0.52 uIU/mL (0.36-3.74); Total Protein 6.8 g/dL (6.4-8.2)
[2022-03-17 19:26] LABS: CRP < 0.2 mg/dL (0.0-0.9)
[2022-03-17 19:46] LABS: Rheumatoid Factor Screen Negative (Negative)
[2022-03-17 19:56] LABS: Erythrocyte Sedimentation Rate 10 mm/hr (0-15)
== END 2022-03-17 18:30 | disposition home or self-care (01) ==
PROVIDERS: PCP Family Medicine; Visit Provider Family Medicine
DX: R11.10 Vomiting, unspecified (principal); R53.83 Other fatigue; D61.818 Other pancytopenia
CPT/HCPCS: 36415; 80053; 81003; 82150; 83690; 84443; 85025; 85055; 85652; 86140; 86430

== ENCOUNTER 2022-08-03 11:54 | Outpatient (CLI) | payer BC, MEDICAID, SELFPAY ==
[2022-08-03 12:59] LABS: Influenza A QL RT-PCR Negative (Negative); Influenza B QL RT-PCR Negative (Negative); SARS-CoV-2 RNA PCR Negative (Negative)
== END 2022-08-03 11:55 | disposition home or self-care (01) ==
PROVIDERS: PCP Family Medicine; Visit Provider Family Medicine
DX: J06.9 Acute upper respiratory infection, unspecified (principal); Z20.822 Contact with and (suspected) exposure to COVID-19
CPT/HCPCS: 87636

== ENCOUNTER 2022-11-28 22:23 | Emergency (ER) | payer BC, MEDICAID, SELFPAY ==
--- NOTE | ~2022-11-28 | CT_ITS ---
EXAMINATION: CT brain wo con DATE: 11/28/2022 22:56 INDICATION: Headache. TECHNIQUE: Computed tomography (CT) of the head was performed without intravenous contrast. The mA wa s adjusted according to patient size. Iterative reconstruction technique was employed. The dose-lengt h product was 529.67 mGy-cm. COMPARISON: None FINDINGS: There is no intracranial hemorrhage, acute infarction, or abnormal intracranial mass lesion . The ventricles are normal in size. There is mild mucosal thickening in the ethmoid sinuses. The mas toid air cells are normal. IMPRESSION: 1. Normal brain. Reviewed, dictated and finalized at location A. IMPRESSION: 1. Normal brain.
[2022-11-28 22:36] VITALS: BP 121/104; PULSE 74; RESP 23; TEMP 36.8; O2SAT 100
--- NOTE | 2022-11-28 22:42 | ED.HA ---
HPI - Headache General Chief Complaint: Headache Stated Complaint: Headache Source: patient Mode of arrival: ambulatory Limitations: no limitations History of Present Illness HPI Narrative: 32 year old female presents to the Emergency Department complaining of headache. States began 5 days ago. Patient has a history of migraine headaches since childhood. States normally do not last this long - normally last a day. Pain now to right side of head. States she is vomiting. Feels dehydrated. denies fever, cough, congestion, shortness of breath, chest pain. Patient took OTC medication without relief. Patient is also taking Suboxone. MD elicited complaint: headache Pertinent past history: migraines and coagulopathy (ITP) Onset (ago): day(s) (5 days) Location: right Severity: similar to previous episodes (but longer) Quality & Timing: throbbing Exacerbating factors: none Relieving factors: nothing Associated symptoms: nausea and vomiting Treatments prior to arrival: ibuprofen Related Data Home Medications Medication Instructions Recorded Confirmed buprenorphine 8 mg-naloxone 2 mg 1 tablet sublingual BID 11/28/22 11/28/22 sublingual tablet Allergies Allergy/AdvReac Type Severity Reaction Status Date / Time bee venom protein (honey bee) Allergy Swelling Verified 11/28/22 22:34 [bees] shellfish derived Allergy Unknown Verified 11/28/22 22:34 Review of Systems Review of Systems: All systems reviewed & are unremarkable except as noted in HPI and below Constitutional: Constitutional: Reports as per HPI, Denies chills, Denies fever(s) and Reports weakness Eyes: Eyes: Reports as per HPI, Denies change in vision and Denies photophobia ENT: Reports system reviewed and no additional complaints, except as documented Cardiovascular: Cardiovascular: Reports as per HPI and Denies chest pain Respiratory: Respiratory: Reports as per HPI, Denies chest congestion, Denies cough and Denies dyspnea Gastrointestinal: Gastrointestinal: Reports as per HPI, Reports nausea and Reports vomiting Genitourinary: Genitourinary: Reports no additional female genitourinary complaints Musculoskeletal: Musculoskeletal: Reports no additional musculoskeletal complaints Integumentary/Breasts: Skin/Breast: Reports system reviewed and no additional complaints, except as docu Neurologic: Reports system reviewed and no additional complaints, except as documented, Reports as per HPI and Reports headache(s) PMFSH Past Medical History Medical History Chronic ITP (idiopathic thrombocytopenia) History of kidney stones History of Migraine Surgical History Surgical History History of Social History Social History Smoking status: Never smoker Alcohol intake: never Substance use: current Substance use type: amphetamines Gender identity (if verbalized by the patient): Female Exam Const: General: healthy appearing Nutritional Appearance: well nourished Orientation/consciousness: patient oriented x3 Limitations: no limitations HENMT: Head: normal to inspection Ears: external ears normal Face/Nose/Sinus: Normal external nose present Face and sinus: normal facial exam Mouth: Yes Normal oral and palatal mucosa present Teeth and gingiva: dentition normal Throat: posterior oropharynx normal Eyes: Conjunctivae: conjunctivae normal Pupils: Equal, round and reactive pupils present EOM: EOMs intact bilaterally Direct Ophthalmoscopy: no photophobia Neck: Neck: normal visual inspection and meningismus present Chest: Chest palpation & inspection: normal inspection of the chest Resp: Effort & Inspection: normal respiratory effort Auscultation: clear to auscultation bilaterally Cardio: Rate: regular rate Rhythm: regular rhythm Heart sounds: n
[2022-11-28] MEDS: diphenhydrAMINE HCl INJ 50 MG/ML VIAL IV PUSH (23:11)
[2022-11-28] MEDS: KETOROLAC 30 MG/ML VIAL (*BKC) IV PUSH (23:12)
[2022-11-28] MEDS: ONDANSETRON INJ 4 MG/2 ML VIAL IV PUSH (23:13)
[2022-11-28] MEDS: SODIUM CHLORIDE 0.9% IV 1,000 ML 999 ML IV CONT (23:13)
[2022-11-28 23:18] LABS: Basophils Absolute Auto 0.05 K/mm3 (0.00-0.10); Basophils Percent Auto 0.5 % (0.0-1.0); Eosinophils Absolute Auto 0.06 K/mm3 (0.02-0.50); Eosinophils Percent Auto 0.6 % (1.0-6.0); Hematocrit 44.6 % (35.0-49.0); Hemoglobin 14.2 g/dL (12.0-15.0); Immature Granulocyte Absolute 0.04 K/mm3 (0.00-0.00); Immature Granulocyte Percent A 0.4 % (0.0-0.0); Immature Platelet Fraction Pct 31.5 % (1.0-7.0); Lymphocytes Percent Auto 7.9 % (18.0-42.0); Mean Corpuscular HGB Conc 31.8 g/dL (32.0-36.0); Mean Corpuscular Hemoglobin 28.6 pg (27.0-31.0); Mean Corpuscular Volume 89.9 fL (78.0-102.0); Monocytes Absolute Auto 0.41 K/mm3 (0.10-0.90); Neutrophils Absolute Auto 8.8 K/mm3 (1.7-7.2); Neutrophils Percent Auto 86.6 % (50.0-70.0); Platelet Count Result 34 K/mm3 (150-420); Red Blood Count 4.96 M/mm3 (4.20-5.40); Red Cell Distribution Width 13.2 % (11.6-14.4); White Blood Count 10.2 K/mm3 (4.8-10.8)
[2022-11-28 23:29] LABS: Partial Thromboplastin Time 26.1 SEC (23.90-30.70); Prothrombin Time 11.2 Seconds (9.50-12.10)
[2022-11-28 23:30] LABS: Alanine Aminotransferase 21 U/L (14-59); Albumin Level 3.7 g/dL (3.4-5.0); Alkaline Phosphatase 62 U/L (46-116); Anion Gap 8 mmol/L (8-16); Aspartate Amino Transferase 16 U/L (15-37); Bilirubin,Total 0.3 mg/dL (0.00-1.00); Blood Urea Nitrogen 13 mg/dL (7-18); Calcium 8.6 mg/dL (8.5-10.1); Carbon Dioxide 28 mmol/L (21-32); Chloride 102 mmol/L (98-108); Estimated CRCL calculation 87 ml/min; Estimated Glomerular Filt Rate > 60; Glucose 111 mg/dL (70-99); Osmolality Calculated 287 mOsm/kg (285-295); Potassium 4.1 mmol/L (3.5-5.1); Sodium 138 mmol/L (136-145); Total Protein 7.3 g/dL (6.4-8.2)
[2022-11-29 00:32] LABS: Appearance Urine Clear (Clear); Bilirubin Urine Negative (Negative); Blood Urine Negative (Negative); Color Urine Light Yellow (Yellow); Glucose Urine UA Negative (Negative); Ketones Urine Negative (Negative); Leukocyte Esterase Ur Negative (Negative); Nitrate Urine Negative (Negative); Protein Urine Negative (Negative); Specific Grav Ur 1.015 (1.010-1.020); Urobilinogen Urine 0.2 mg/dL (0.2-1.0)
[2022-11-29 00:40] LABS: Add Urine Microscopic? NO; Pregnancy On Board Control Positive; Urine Pregnancy Test Negative
[2022-11-29 01:02] VITALS: BP 108/60; PULSE 65; RESP 17; TEMP 36.8; O2SAT 97
== END 2022-11-29 01:03 | disposition home or self-care (01) ==
PROVIDERS: Emergency Provider Emergency Medicine; PCP Family Medicine
DX: G43.909 Migraine, unspecified, not intractable, without status migrainosus (principal); D69.3 Immune thrombocytopenic purpura
CPT/HCPCS: 36415; 70450; 80053; 81003; 81025; 85025; 85055; 85610; 85730; 96361; 96374; 96375; 99284; J1200; J1885; J2405; J7030

== ENCOUNTER 2024-04-12 19:16 | Emergency (ER) | payer BC, MEDICAID, SELFPAY ==
--- NOTE | ~2024-04-12 | XR_ITS ---
XR chest 1V portable Ordering provider: Chris Saavedra MD History: 33 years Female with . shortness of breath . Comparison: None. FINDINGS: MEDIASTINUM: The cardiac silhouette is not enlarged. LUNGS: No infiltrates, effusions or pneumothorax. OTHER: No free air under the diaphragm. IMPRESSION: No acute cardiopulmonary pathology. Reviewed, dictated and finalized at location A.
[2024-04-12 19:17] VITALS: BP 116/71; PULSE 86; RESP 18; TEMP 36.1; O2SAT 95
--- NOTE | 2024-04-12 19:30 | PC.NURSE ---
nasal swb done
--- NOTE | 2024-04-12 19:30 | PC.NURSE ---
COVID PCR obtained and sent to lab
[2024-04-12 19:47] LABS: Basophils Absolute Auto 0.04 K/mm3 (0.00-0.10); Basophils Percent Auto 0.4 % (0.0-1.0); Eosinophils Absolute Auto 0.38 K/mm3 (0.02-0.50); Eosinophils Percent Auto 3.5 % (1.0-6.0); Hematocrit 38.8 % (35.0-49.0); Hemoglobin 12.5 g/dL (12.0-15.0); Immature Granulocyte Absolute 0.05 K/mm3 (0.00-0.00); Immature Granulocyte Percent A 0.5 % (0.0-0.0); Immature Platelet Fraction Pct 17.3 % (1.0-7.0); Lymphocytes Percent Auto 12.8 % (18.0-42.0); Mean Corpuscular HGB Conc 32.2 g/dL (32-36); Mean Corpuscular Hemoglobin 28.3 pg (27.0-31.0); Mean Platelet Volume 13.8 fl (9.2-11.8); Monocytes Absolute Auto 0.48 K/mm3 (0.10-0.90); Monocytes Percent Auto 4.4 % (2.0-11.0); Neutrophils Absolute Auto 8.56 K/mm3 (1.70-7.20); Neutrophils Percent Auto 78.4 % (50.0-70.0); Platelet Count Result 167 K/mm3 (150-420); Red Blood Count 4.41 M/mm3 (4.20-5.40); Red Cell Distribution Width 13.5 % (11.6-14.4); White Blood Count 10.9 K/mm3 (4.8-10.8)
--- NOTE | 2024-04-12 19:55 | PC.NURSE ---
lab at bedside
[2024-04-12 20:01] LABS: Albumin Level 4.7 g/dL (3.4-5.0); Alkaline Phosphatase 83 U/L (46-116); Anion Gap 11 mmol/L (4-12); Aspartate Amino Transferase 21 U/L (15-37); Bilirubin,Total 0.4 mg/dL (0.00-1.00); Blood Urea Nitrogen 13 mg/dL (7-18); Calcium 8.6 mg/dL (8.5-10.1); Carbon Dioxide 25 mmol/L (21-32); Chloride 104 mmol/L (98-108); Estimated CRCL calculation 76 ml/min; Estimated Glomerular Filt Rate > 60; Glucose 85 mg/dL (70-99); Osmolality Calculated 289 mOsm/kg (285-295); Potassium 3.4 mmol/L (3.5-5.1); Sodium 140 mmol/L (136-145); Total Protein 6.9 g/dL (6.4-8.2)
--- NOTE | 2024-04-12 20:05 | PC.NURSE ---
x ray at bedside
--- NOTE | 2024-04-12 20:08 | ED.URI ---
HPI - URI/Sore Throat General Chief Complaint: Upper Respiratory Infection Stated Complaint: upper respiratory Time Seen by Provider: 04/12/24 19:25 Source: patient Mode of arrival: ambulatory Limitations: no limitations History of Present Illness HPI Narrative: is a 33-year-old female presents with cough congestion over the past 4 to 5 days with history of asthma has some audible wheezing and cough with bilateral rib pain because of the coughing with no fever chills no chest pain no abdominal pain. MD elicited complaint: cough and nasal congestion Onset (ago): day(s) Consistency: constant Severity: mild Description of mucous: yellow Related Data Home Medications Medication Instructions Recorded Confirmed buprenorphine 8 mg-naloxone 2 mg 1 tablet sublingual BID 11/28/22 11/28/22 sublingual tablet Allergies Allergy/AdvReac Type Severity Reaction Status Date / Time bee venom protein (honey bee) Allergy Swelling Verified 04/12/24 19:29 [bees] shellfish derived Allergy Unknown Verified 04/12/24 19:29 Review of Systems Review of Systems: All systems reviewed & are unremarkable except as noted in HPI and below PMFSH Past Medical History Medical History Chronic ITP (idiopathic thrombocytopenia) History of kidney stones History of Migraine Surgical History Surgical History History of Social History Social History Smoking status: Never smoker Alcohol intake: never Substance use: current Substance use type: amphetamines Gender identity (if verbalized by the patient): Female Exam Const: General: healthy appearing and no acute distress Nutritional Appearance: well nourished Orientation/consciousness: patient oriented x3 Limitations: no limitations HENMT: Head: normal to inspection Neck: Neck: normal visual inspection, no lymphadenopathy and no meningeal signs Chest: Chest palpation & inspection: normal inspection of the chest Resp: Effort & Inspection: normal respiratory effort Auscultation: wheezes Cardio: Rate: regular rate Rhythm: regular rhythm GI: GI Palp: Yes Soft to palpation Auscultation: normal bowel sounds Skin: General skin exam: normal color Rashes: no rashes Neuro: General: patient oriented x3, moves all extremities and no meningeal signs Course Course Emergency Course: Patient had chest x-ray which shows no acute cardiopulmonary abnormality, with shortness of breath received a DuoNeb breathing treatment and 80mg IM Depo-Medrol and 1g IM ceftriaxone. COVID RSV influenza negative blood work performed negative. Vital Signs Vital signs: Vital Signs Temperature 36.1 C L 04/12/24 19:17 Pulse Rate 86 04/12/24 19:17 Respiratory Rate 18 04/12/24 19:17 Blood Pressure 116/71 04/12/24 19:17 Pulse Oximetry 95 04/12/24 19:17 Oxygen Delivery Room Air 04/12/24 19:17 Temperature 36.1 C L 04/12/24 19:17 Pulse Rate 86 04/12/24 19:17 Respiratory Rate 18 04/12/24 19:17 Blood Pressure 116/71 04/12/24 19:17 Pulse Oximetry 95 04/12/24 19:17 Oxygen Delivery Room Air 04/12/24 19:17 MDM - URI/Sore Throat Lab Data 04/12/24 19:41 04/12/24 19:41 Labs: Lab Results 04/12/24 04/12/24 Range/Units 19:31 19:41 WBC 10.9 H (4.8-10.8) K/mm3 RBC 4.41 (4.20-5.40) M/mm3 Hgb 12.5 (12.0-15.0) g/dL Hct 38.8 (35.0-49.0) % MCV 88.0 (78.0-102.0) fL MCH 28.3 (27.0-31.0) pg MCHC 32.2 (32-36) g/dL RDW 13.5 (11.6-14.4) % Plt Count 167 (150-420) K/mm3 MPV 13.8 H (9.2-11.8) fl Immature Gran % (Auto) 0.5 H (0.0-0.0) % Neut % (Auto) 78.4 H (50.0-70.0) % Lymph % (Auto) 12.8 L (18.0-42.0) % Kidder % (Auto) 4.4 (2.0-11.0) % Eos % (Auto) 3.5 (1.0-6.0) % Baso % (Auto) 0.4 (0
[2024-04-12 20:11] LABS: Influenza A QL RT-PCR Negative (Negative); Influenza B QL RT-PCR Negative (Negative); RSV RNA, RT-PCR Negative (Negative); SARS-CoV-2 RNA PCR Negative (Negative)
[2024-04-12 20:18] LABS: Alanine Aminotransferase 23 U/L (14-59)
[2024-04-12] MEDS: methylPREDNISolone ACETATE 40 MG/ML VIAL 80 MG IM (20:20)
[2024-04-12] MEDS: IPRATROPIUM 0.5 MG/ALBUTEROL SULFATE 2.5 MG AMPUL.NEB 3 ML INHALATION (20:20)
[2024-04-12] MEDS: cefTRIAXone 1 GM, LIDOCAINE HCL 1% LOCAL INJ 2.1 ML IM (20:30)
[2024-04-12 21:15] VITALS: BP 102/60; PULSE 85; RESP 18; O2SAT 98
== END 2024-04-12 21:15 | disposition home or self-care (01) ==
PROVIDERS: Emergency Provider Emergency Medicine; PCP Family Medicine
DX: J06.9 Acute upper respiratory infection, unspecified (principal); Z20.822 Contact with and (suspected) exposure to COVID-19
CPT/HCPCS: 36415; 71045; 80053; 85025; 85055; 87637; 96372; 99284; J0696; J1010

== ENCOUNTER 2024-07-07 10:37 | Emergency (ER) | payer BC, MEDICAID, SELFPAY ==
--- NOTE | ~2024-07-07 | XR_ITS ---
EXAMINATION: XR chest 1V portable DATE: 07/07/2024 11:07 INDICATION: Cough and shortness of breath TECHNIQUE: frontal view of the chest was obtained. COMPARISON: Chest radiograph dated 04/12/24 FINDINGS: The lungs are clear with no focal airspace opacities, pulmonary edema, pleural effusion or pneumothor ax. The cardiomediastinal silhouette is normal. Visualized bones and soft tissues are unremarkable. IMPRESSION: 1. Normal chest radiograph. Reviewed, dictated and finalized at location A. CTOR STARS IMPRESSION: 1. Normal chest radiograph.
[2024-07-07 10:40] VITALS: BP 104/70; PULSE 62; RESP 18; TEMP 36.9; O2SAT 96
[2024-07-07 10:50] VITALS: O2SAT 97
--- NOTE | 2024-07-07 10:58 | ED.URI ---
HPI - URI/Sore Throat General Chief Complaint: Upper Respiratory Infection Stated Complaint: nausea, headache, cough Time Seen by Provider: 07/07/24 10:44 Source: patient Mode of arrival: ambulatory Limitations: no limitations History of Present Illness HPI Narrative: 34-year-old female smoker with a history of migraine, ITP, kidney stones presents to the ED with a 1 day history of -- nonproductive cough. occasional shortness of breath -- nausea without any vomiting -- headache. headache is similar to her usual headache. It is retro-orbital. no photophobia/ phonophobia. No fever or chills Patient's sons and her mother tested positive for influenza last week MD elicited complaint: cough Onset (ago): day(s) ( 1 day) Exacerbating factors: nothing Relieving factors: nothing Associated symptoms: denies other symptoms and cough Treatments prior to arrival: none Related Data Home Medications ?Medication ?Instructions ?Recorded ?Confirmed ?Last Taken ?Type buprenorphine 8 mg-naloxone 2 mg 1 tablet sublingual BID 11/28/22 07/07/24 Unknown History sublingual tablet clonazepam 1 mg tablet 1 mg PO Q12H anxiety 07/07/24 07/07/24 Unknown History hydroxyzine pamoate 100 mg capsule 100 mg PO Q8H 07/07/24 07/07/24 Unknown History Allergies Allergy/AdvReac Type Severity Reaction Status Date / Time bee venom protein (honey Allergy Swelling Verified 07/07/24 11:03 bee) (bees) shellfish derived Allergy Unknown Verified 07/07/24 11:03 Review of Systems Review of Systems: All systems reviewed & are unremarkable except as noted in HPI and below Constitutional: Constitutional: Reports as per HPI, Reports no additional constitutional complaints and Reports weakness Eyes: Eyes: Reports as per HPI and Reports no additional eye complaints ENT: Reports system reviewed and no additional complaints, except as documented and Reports as per HPI Cardiovascular: Cardiovascular: Reports as per HPI and Reports no additional cardiovascular complaints Respiratory: Respiratory: Reports as per HPI, Reports no additional respiratory complaints, Reports cough and Reports dyspnea Gastrointestinal: Gastrointestinal: Reports as per HPI, Reports no additional gastrointestinal complaints and Reports nausea Genitourinary: Genitourinary: Reports no additional female genitourinary complaints and Reports as per HPI Musculoskeletal: Musculoskeletal: Reports no additional musculoskeletal complaints and Reports as per HPI Integumentary/Breasts: Skin/Breast: Reports system reviewed and no additional complaints, except as docu and Reports as per HPI Neurologic: Reports system reviewed and no additional complaints, except as documented and Reports as per HPI Psychiatric: Psychiatric: Reports no additional psychiatric complaints and Reports as per HPI Endocrine: Endocrine: Reports no additional endocrine complaints and Reports as per HPI Hematologic/Lymphatic: Hematologic/Lymphatic: Reports no additional hematologic/lymphatic complaints and Reports as per HPI Allergic/Immunologic: Allergic/Immunologic: Reports no additional allergic/immunologic complaints and Reports as per HPI [facility] Past Medical History Medical History History of kidney stones Chronic ITP (idiopathic thrombocytopenia) History of Migraine Surgical History Surgical History History of Social History Social History Smoking status: Never smoker Alcohol intake: never Substance use: current Substance use type: amphetamines Gender identity (if verbalized by the patient): Female Exam Narrative: vitals are stable Const: General: no acute distress Orientation/consciousness: patient oriented x3 Limitations: no limitations HENMT: Head: normal to inspection Ears: external ears normal Face/Nose/Sinus: Normal external nose present Face and sinus: normal facial exam Mouth: Yes Normal oral and palatal mucosa present Throat: posterior oropharynx normal ( pharyngeal erythema) Eyes: Conjunctivae: conjunctivae normal Pupils: Equal, round and reactive pupils present EOM: EOMs intact bilaterally Direct Ophthalmoscopy: no photophobia Neck: Neck: normal visual inspection, no lymphadenopathy and no meningeal signs Chest: Chest palpation & inspection: normal inspection of the chest Resp: Auscultation: rhonchi and diminished lung sounds Cardio: Rate: regular rate Rhythm: regular rhythm GI: GI Palp: Yes Soft to palpation Other: no tenderness/ rigidity / rebound. : General: Yes no CVA tenderness Back/Spine/Pelvis: Back: no CVA tenderness Skin: General skin exam: normal color Rashes: no rashes Wounds: no wounds Neuro: General: patient oriented x3, moves all extremities, no meningeal signs, no focal motor deficits and CN's II-XI intact bilaterally Cranial nerves: Yes Nystagmus not present Speech: normal speech Gait exam (Neuro): Normal gait present Extrem: General: normal to inspection and no clubbing, cyanosis or edema Psych: Mental Status: mental status grossly normal Affect: normal affect Attitude: cooperative Course Course Emergency Course: upper respiratory tract infection with pharyngeal erythema-- will check for influenza/ RSV / COVID and strep recurrent cough which is nonproductive with shortness of breath-- will get a chest x-ray to rule out pneumonia migraine headache patient tested negative for RSV /influenza / COVID/strep. Chest x-ray did not show any acute findings. Will treat her with Zithromax in view of bronchitis related to smoking. Vital Signs Vital signs: Vital Signs Temperature 36.9 C 07/07/24 10:40 Pulse Rate 62 07/07/24 10:40 Respiratory Rate 18 07/07/24 10:40 Blood Pressure 104/70 07/07/24 10:40 Pulse Oximetry 96 07/07/24 10:40 Oxygen Delivery Room Air 07/07/24 10:40 Temperature 36.9 C 07/07/24 10:40 Pulse Rate 62 07/07/24 10:40 Respiratory Rate 18 07/07/24 10:40 Blood Pressure 104/70 07/07/24 10:40 Pulse Oximetry 97 07/07/24 10:50 Oxygen Delivery Room Air 07/07/24 10:50 MDM - URI/Sore Throat MDM Narrative Medical decision making narrative: Upper respiratory tract infection migraine acute bronchitis Differential Diagnosis Differential diagnosis: Likely viral infection Medical Records Attestation: I reviewed the patient's medical records. Lab Data Attestation: I reviewed the patient's lab results. Labs: Lab Results 07/07/24 Range/Units 10:56 Influenza A (RT-PCR) Negative (Negative) Influenza B (RT-PCR) Negative (Negative) RSV (RT-PCR) Negative (Negative) SARS-CoV-2 RNA (RT-PCR) Negative (Negative) Group A Strep (PCR) Not detected (Negative) Discharge Plan Discharge Clinical Impression: Bronchitis Migraine Qualifiers: Migraine type: unspecified Status migrainosus presence: without status migrainosus Intractability: not intractable Qualified Code(s): G43.909 - Migraine, unspecified, not intractable, without status migrainosus Upper respiratory infection Qualifiers: URI type: unspecified viral URI Qualified Code(s): J06.9 - Acute upper respiratory infection, unspecified Patient Disposition: Home, Self-Care Condition: Stable Instructions: Antibiotic Form, Upper Respiratory Infection (ED), Acute Bronchitis (ED) Patient Language: Maltese Prescriptions: New azithromycin [Zithromax] 500 mg tablet 500 mg PO DAILY 3 Days Qty: 3 0RF No Action buprenorphine-naloxone 8-2 mg tablet, sublingual 1 tablet SUBLINGUAL BID clonazepam 1 mg tablet 1 mg PO Q12H hydroxyzine pamoate 100 mg capsule 100 mg PO Q8H Follow-up/Referrals: Alejandro Blevins MD [Primary Care Provider] - Stand Alone Forms: Work/School Release IP Time of Disposition: 11:59
--- NOTE | 2024-07-07 11:06 | PC.NURSE ---
COVID PCR strep test administered & sent to lab w/ strep test
[2024-07-07 11:34] LABS: Strep Group A RT-PCR NOT DETECTED (Negative)
[2024-07-07 11:41] LABS: Influenza A QL RT-PCR Negative (Negative); Influenza B QL RT-PCR Negative (Negative); RSV RNA, RT-PCR Negative (Negative); SARS-CoV-2 RNA PCR Negative (Negative)
[2024-07-07 12:00] VITALS: BP 126/70; PULSE 95; RESP 18; TEMP 37; O2SAT 98
--- OUTSIDE RECORDS SUMMARY | 2024-07-11 05:36 | XMS_ITS | Encounter Summary ---
Author Organization [facility] Address [address] [place] [address] Care Team Providers Care Train Operations Supervisor Name Role Phone Alejandro Blevins MD Primary Care Provider +1- [phone] Reason for Visit * Reason Onset Date Comments Reminder Call 06/24/2020 Encounter Details Date Type Department Care Team (Late st Contact Info) Description 06/24/2020 Telephone [facility] MATERNAL/ EVALUATION UNIT [address] [place] [address] Gillian Orozco, RN Reminder Call Social History Tobacco Use Types Packs/Day Years Used Date Smoking Tobacco: Some Days Cigarettes 0.5 20 Started: 07/2004 Smokeless Tobacco: Never Alcohol Use Standard Drinks/Week Comments Not Currently 0 (1 standard drink = 0.6 oz pur e alcohol) Sex and Gender Information Value Date Recorded Sex Assigned at Not on file Gender Identity Not on file Sexual Orientation Not on file COVID-19 Exposure Response Date Recorded In the last month, have you been in contact with someone who was confirmed or suspected to have Coronavirus / COVID-19? No / Unsure 06/02/2020 8:22 AM PARTS DESIGNER documented as of this encounter Functional Status Functional Status Response Date of Assess ment Is person deaf or have serious hearing difficult y? No 04/17/2020 Is person blind or have serious difficulty seein g? No 04/17/2020 Does person have serious dif ficulty walking/climbing stairs? No 04/17/2020 Does person have difficulty dressing/bathing? No 04/17/2020 Does person have difficulty doing errands alone? No 04/17/2020 Cognitive Status Response Date of Assessm ent Does person have difficulty concentrating/remembering/making decisions? No 04/17/2020 documented as of this encounter Miscellaneous Notes * Telephone Encounter - Gillian Orozco RN - 06/24/2020 11:13 AM CST Patient updated on COVID-19 visitor policy: NO VISITORS allowed at this time and we will be screening patient in the waiting room. Communicable disease screening performed. Hillary Serina informed that she must wear face covering over the mouth and nose at all times for the duration of her appointment. Are you concerned that you may have or been exposed to COVID-19?: no Informed that if experiencing syptoms of COVID 19, we ask that you contact the office prior to coming for your appointmet. Hillary Smalls voiced understanding and agreement. S DESIGNER documented in this encounter Plan of Treatment Not on file documented as of this encounter Visit Diagnoses Not on filedocumented in this encounter Care Teams Train Operations Supervisor Relationship Specialty Start Date End Date Alejandro Blevins MD [address] [place] [phone] PCP - General Family Medicine 12/07/19 documented as of this encounter
--- OUTSIDE RECORDS SUMMARY | 2024-07-11 05:36 | XMS_ITS | Encounter Summary ---
Author Organization [facility] Address [address] [place] [address] Care Team Providers Care Hot Bread Baker Name Role Phone Alejandro Blevins MD Primary Care Provider [phone]- [phone] Reason for Visit * Reason Onset Date Comments Results 02/25/2021 Encounter Details Date Type Department Care Team (Late st Contact Info) Description 02/25/2021 Telephone [facility] PHYS OB [address] [place], [place] [id number] Yodit Yoon MD [address] [address] Results Social History Tobacco Use Types Packs/Day Years Used Date Smoking Tobacco: Some Days Cigarettes 0.5 20 Started: 07/2004 Smokeless Tobacco: Never Alcohol Use Standard Drinks/Week Comments Not Currently 0 (1 standard drink = 0.6 oz pur e alcohol) Sex and Gender Information Value Date Recorded Sex Assigned at Not on file Gender Identity Not on file Sexual Orientation Not on file documented as of this encounter Functional Status [...] encounter Miscellaneous Notes * Telephone Encounter - Yodit Yoon MD - 02/25/2021 6:30 PM CDT R3 Telephone Call Called patient to inform her of LEEP results. 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 Her ECC was benign. The plan is for repeat cotesting in 6 months. All her questions were answered. D/W Dr. Ira Yoon MD 02/25/2021 6:30 PM documented in this encounter Plan of Treatment Not on file documented as of this encounter Visit Diagnoses Not on filedocumented in this encounter Care Teams Hot Bread Baker Relationship Specialty Start Date End Date Alejandro Blevins MD [address] [place] [phone] PCP - General Family Medicine 12/07/19 documented as of this encounter
--- OUTSIDE RECORDS SUMMARY | 2024-07-11 05:36 | XMS_ITS | Encounter Summary ---
Author Organization [facility] Address [address] [place] [address] Care Team Providers Care Marketing Services Vice President Name Role Phone Alejandro Blevins MD Primary Care Provider +1- [phone] Reason for Visit * Reason Onset Date Comments Scheduling 02/11/2021 Encounter Details Date Type Department Care Team (Late st Contact Info) Description 02/11/2021 Telephone [facility] MATERNAL/ EVALUATION UNIT [address] [place] [address]. [address] [place] [address] Rosario Jasso Scheduling Social History Tobacco Use Types Packs/Day Years [...] encounter Miscellaneous Notes * Telephone Encounter - Rosario Jasso - 02/11/2021 3:11 PM CDT Contacted patient to inform her of upcoming appointment with MFM. documented in this encounter Plan of Treatment Not on file documented as of this encounter Visit Diagnoses Not on filedocumented in this encounter Care Teams Marketing Services Vice President Relationship Specialty Start Date End Date Alejandro Blevins MD [address] [place] [phone] PCP - General Family Medicine 12/07/19 documented as of this encounter
--- OUTSIDE RECORDS SUMMARY | 2024-07-11 05:36 | XMS_ITS | Encounter Summary ---
Author Organization [facility] Address [address] [facility] [place] [address] Care Team Providers Care Split Leather Mosser Name Role Phone Alejandro Blevins MD Primary Care Provider [phone] Reason for Visit * Reason Onset Date Comments Results 08/28/2021 Encounter Details Date Type Department Care Team (Late st Contact Info) Description 08/28/2021 Telephone [facility] MATERNAL/ EVALUATION UNIT [address] [place] [address] Ruben Sorto MD [address] [place] [address] Results Social History Tobacco Use Types Packs/Day [...] encounter Miscellaneous Notes * Telephone Encounter - Ruben Sorto MD - 08/28/2021 4:05 PM CST R2 OBGYN Progress Note Called patient to report normal pap smear results. Plan for annual pap smear for the next 3 years, then q3yr pap smears. Pt reports understanding. Will plan for exam in one year. Ruben Sorto MD 08/28/2021 4:07 PM DRILLER documented in this encounter Plan of Treatment Not on file documented as of this encounter Visit Diagnoses Not on filedocumented in this encounter Care Teams Split Leather Mosser Relationship Specialty Start Date End Date Alejandro Blevins MD [address] [place] [phone] PCP - General Family Medicine 12/07/19 documented as of this encounter
--- OUTSIDE RECORDS SUMMARY | 2024-07-11 05:36 | XMS_ITS | Encounter Summary ---
Author Organization [facility] Address [address] [facility] [place] [address] Care Team Providers Care Receiver Dispatcher Name Role Phone Alejandro Blevins MD Primary Care Provider +1- [phone] Reason for Visit * Reason Onset Date Comments Results 02/11/2021 Encounter Details Date Type Department Care Team (Late st Contact Info) Description 02/11/2021 Telephone [facility] MATERNAL/ EVALUATION UNIT [address] [facility] [place] [address] Yodit Yoon MD [address] [facility] [address] [place] [address] Results Social History Tobacco Use Types Packs/Day [...] Telephone Encounter - Yodit Yoon MD - 02/11/2021 1:44 PM CDT R3 Telephone Call Called patient to discuss results of her colposcopy. 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 The colposcopy was significant for HGSIL/CIN3 at both 6 o'clock and 12 o'clock biopies. The ECC showed scant detached fragments of HGSIL. The next step for this patient is treatment with a LEEP. Explained the reason for the procedure and the expectations, risks/benefits of a LEEP. It will be performed in the office and the schedulers will call to get the appointment scheduled during colpo clinic with Dr. Roth. All questions were answered. D/W Dr. Ira Yoon MD 02/11/2021 1:44 PM documented in this encounter Plan of Treatment Not on file documented as of this encounter Visit Diagnoses Not on filedocumented in this encounter Care Teams Receiver Dispatcher Relationship Specialty Start Date End Date Alejandro Blevins MD [address] [place] [phone] PCP - General Family Medicine 12/07/19 documented as of this encounter
--- OUTSIDE RECORDS SUMMARY | 2024-07-11 05:36 | XMS_ITS | Encounter Summary ---
Author Organization [facility] Address [address] [place] [address] Care Team Providers Care Black Studies Professor Name Role Phone Alejandro Blevins MD Primary Care Provider [phone] Encounter Details Date Type Department Care Team (Latest Contact Info) Description 08/19/2021 Travel Social History Tobacco Use Types Packs/Day Years [...] No 04/17/2020 documented as of this encounter Plan of Treatment Not on file documented as of this encounter Visit Diagnoses Not on filedocumented in this encounter Care Teams Black Studies Professor Relationship Specialty Start Date End Date Alejandro Blevins MD [address] [place] [phone] PCP - General Family Medicine 12/07/19 documented as of this encounter
--- OUTSIDE RECORDS SUMMARY | 2024-07-11 05:36 | XMS_ITS | Encounter Summary ---
Author Organization [facility] Address [address] [facility] [facility] [place] [address] Care Team Providers Care Elevator Worker Name Role Phone Alejandro Blevins MD Primary Care Provider +1- [phone] Reason for Visit * Reason Onset Date Comments Results 02/11/2021 Encounter Details Date Type Department Care Team (Late st Contact Info) Description 02/11/2021 Telephone [facility] MATERNAL/ EVALUATION UNIT [address] [place] [address]. [address] [place] [address] Chen Taylor, RN Results Social History Tobacco Use Types Packs/Day [...] encounter Miscellaneous Notes * Telephone Encounter - Chen Taylor RN - 02/11/2021 9:44 AM CDT Return call placed to patient Hillary Smalls. Informed pt that Dr. Yoon will be contacting her once the plan of care has been determined after speaking the attending. documented in this encounter Plan of Treatment Not on file documented as of this encounter Visit Diagnoses Not on filedocumented in this encounter Care Teams Elevator Worker Relationship Specialty Start Date End Date Alejandro Blevins MD [address] [place] [phone] PCP - General Family Medicine 12/07/19 documented as of this encounter
--- OUTSIDE RECORDS SUMMARY | 2024-07-11 05:36 | XMS_ITS | Encounter Summary ---
Author Organization [facility] Address [address] [place] [address] Care Team Providers Care Stereoptic Projection Topographer Name Role Phone Alejandro Blevins MD Primary Care Provider +1- [phone] Reason for Visit * Reason Onset Date Comments Results 08/26/2021 Encounter Details Date Type Department Care Team (Late st Contact Info) Description 08/26/2021 Telephone [facility] MATERNAL/ EVALUATION UNIT [facility] [facility] [place] [address] Mary Ann Doe MD [address] [place] [address] [place] [phone] Results Social History Tobacco Use Types Packs/Day [...] encounter Miscellaneous Notes * Telephone Encounter - Mary Ann Doe MD - 08/26/2021 11:34 AM CST R4 DRAWER HARDWARE WORKER Telephone Encounter Called patient to discuss her pap results s/p LEEP. No response, so message left for her to call clinic back. Had LEEP 02/18/2021 with WIL III and negative margins. Follow-up pap collected 08/19/2021 and was NILM, HPV negative. Patient needs annual paps with HPV cotest for 3 years. If all normal, then can space out to every 3years for [address] Keyanna Torres. Mary Ann Doe MD 08/26/2021 11:37 AM ERTY SITE MANAGER documented in this encounter Plan of Treatment Not on file documented as of this encounter Visit Diagnoses Not on filedocumented in this encounter Care Teams Stereoptic Projection Topographer Relationship Specialty Start Date End Date Alejandro Blevins MD [address] [place] [phone] PCP - General Family Medicine 12/07/19 documented as of this encounter
--- OUTSIDE RECORDS SUMMARY | 2024-07-11 05:36 | XMS_ITS | Encounter Summary ---
Author Organization [facility] Address [address] [place] [address] Care Team Providers Care Soil Science Technical Officer Name Role Phone Alejandro Blevins MD Primary Care Provider +1 [phone] Encounter Details Date Type Department Care Team (Latest Contact Info) Description 02/04/2021 Travel Social History Tobacco Use Types Packs/Day [...] on filedocumented in this encounter Care Teams Soil Science Technical Officer Relationship Specialty Start Date End Date Alejandro Blevins MD [address] [place] [phone] PCP - General Family Medicine 12/07/19 documented as of this encounter
--- OUTSIDE RECORDS SUMMARY | 2024-07-11 05:36 | XMS_ITS | Encounter Summary ---
Author Organization [facility] Address [address] [place] [address] Care Team Providers Care Public School Teacher Name Role Phone Alejandro Blevins MD Primary Care Provider +1- [phone] Reason for Visit * Reason Onset Date Comments Pre Appointment Management 07/22/2020 Encounter Details Date Type Department Care Team (Late st Contact Info) Description 07/22/2020 Telephone [facility] MATERNAL/ EVALUATION UNIT [address] [place] [address]. [address] [place] [address] Shayna Thomas RN Pre Appointment Management Social History Tobacco Use Types Packs/Day Years [...] encounter Miscellaneous Notes * Telephone Encounter - Shayna Thomas RN - 07/22/2020 11:33 AM HEAD OF COMMISSION DEPARTMENT Patient updated on COVID-19 visitor policy: NO VISITORS allowed at this time and we will be screening patient in the waiting room. Communicable disease screening performed. Hillary AcevesSerina informed that she must wear face covering over the mouth and nose at all times for the duration of her appointment. Are you concerned that you may have or been exposed to COVID-19?: no Informed that if experiencing syptoms of COVID 19, we ask that you contact the office prior to coming for your appointmet. Hillary Smalls voiced understanding and agreement. OF COMMISSION DEPARTMENT documented in this encounter Plan of Treatment Not on file documented as of this encounter Visit Diagnoses Not on filedocumented in this encounter Care Teams Public School Teacher Relationship Specialty Start Date End Date Alejandro Blevins MD [address] [place] [phone] PCP - General Family Medicine 12/07/19 documented as of this encounter
--- OUTSIDE RECORDS SUMMARY | 2024-07-11 05:36 | XMS_ITS | Patient Health Summary ---
Author Organization [facility] Address [address] [place] [address] Care Team Providers Care Pulp Refiner Operator Name Role Phone Alejandro Blevins MD Primary Care Provider [phone] Note from [facility],non-owned Affiliates and Associated Physician Practices is amultiple site organization consisting of ambulatory clinics and hospital sitesin [place], [place], [place] and [place]. This disclosure is being madepursuant to the Care Everywhere program and may not contain all information available regarding this patient. Last updated 18.[facility] Allergies * Bee Venom(Anaphylaxis) -High Criticality * Contrast-Iodinated Agents For Ct/Other(Anaphylaxis) -High Criticality * Shellfish Allergy(Anaphylaxis) -High Criticality Medications * Be aware that medications may not be up to date on this document. Alwaysverify current medications with the patient. * iron polysaccharides (NIFEREX 150) 150 MG capsule(Started 04/23/2020) Take 1 capsule by mouth once daily * Cyanocobalamin 1000 MCG(Started 04/23/2020) Take 1 tablet by mouth once daily 2 refills by 04/23/2021 * folic acid (FOLVITE) 1 MG tablet(Started 04/23/2020) Take 1 tablet by mouth once daily 2 refills by 04/23/2021 * docusate sodium (COLACE) 100 MG capsule(Started 04/23/2020) Take 1 capsule by mouth 2 times daily 1 refill by 04/23/2021 * ibuprofen (MOTRIN) 600 MG tablet(Started 05/01/2020) Take 1 tablet by mouth every 6 hours as needed for Pain 1 refill by 05/01/2021 * clindamycin (CLEOCIN) 300 MG capsule(Started 01/12/2021) * Acetaminophen-Codeine 300-30 MG Take 1 tablet by mouth every 4 hours as needed * Vit-Fe Fumarate-FA ( PLUS) 27-1 MG tablet(Started 01/15/2021) Take 1 (one) tablet by mouth once daily 1 refill by 01/15/2022 * HYDROcodone-acetaminophen (NORCO) 10-325 MG tablet(Started 02/24/2021) Take 750 tablets by mouth every 8 hours * amoxicillin-clavulanate (AUGMENTIN) 875-125 MG tablet(Started 03/25/2021) Take 1,000 mg by mouth 3 times daily Active Problems Problem Noted Date Diagnosed Date Acute respiratory failure 04/19/2020 Acute blood loss anemia 04/19/2020 Chronic idiopathic thrombocytopenia 04/18/2020 Hemorrhagic shock 04/18/2020 Hepatitis C virus infection without hepatic coma 12/08/2019 Thrombocytopenia affecting 12/08/2019 Transaminitis 12/08/2019 Twin 12/08/2019 Polysubstance abuse 12/08/2019 Anemia 12/07/2019 screening for malformation using ultra sonics Screening, , for risk of pre-term labor Atypical squamous cells theodore ot exclude high grade squamous intraepithelial lesion on cytologic smear of cervix (ASC-H) Social History Tobacco Use Types Packs/Day Years Used Date Smoking Tobacco: Some Days Cigarettes 0.5 20 Started: 07/2004 Smokeless Tobacco: Never Tobacco Cessation:Ready to Q uit: No; Counseling Given: No Alcohol Use Standard Drinks/Week Comments Not Currently 0 (1 standard drink = 0.6 oz pur e alcohol) Sex and Gender Information Value Date Recorded Sex Assigned at Not on file Gender Identity Not on file Sexual Orientation Not on file Last Filed Vital Signs Vital Sign Reading Time Taken Comments Blood Pressure 108/71 08/19/2021 11:05 AM IT INFRASTRUCTURE CONSULTANT Pulse 74 08/19/2021 11:05 AM IT INFRASTRUCTURE CONSULTANT Temperature 36.2 ??C (97.2 ??F) 06/02/2020 8:43 AM CS T Respiratory Rate 18 04/23/2020 12:00 AM CDT Oxygen Saturation 99% 04/23/2020 8:30 AM CDT Inhaled Oxygen Concentration 25% 04/19/2020 8 :22 AM CDT Weight 67.1 kg (148 lb) 01/14/2021 8:35 AM CDT Height 160 cm (5' 3 ) 05/12/2020 10:20 AM CDT Body Mass Index 26.22 05/12/2020 10:20 AM CDT Procedures * PAP IG LB+HPV APTIMA(Performed 08/19/2021) Performed for High grade squamous intraepithelial lesion (HGSIL), grade 3 WIL, on biopsy of cervix * PATHOLOGY TISSUE EXAM (STL)(Performed 02/18/2021) Performed for Atypical squamous cells cannot exclude high grade squamous intraepithelial lesion on cytologic smear of cervix (ASC-H) * HCG URINE QUALITATIVE - POCT (IP) INTERFACED(Performed 02/18/2021) * PATHOLOGY TISSUE EXAM (STL)(Performed 02/04/2021) Performed for Atypical squamous cells cannot exclude high grade squamous intraepithelial lesion on cytologic smear of cervix (ASC-H) * HCG URINE QUALITATIVE - POCT (IP) INTERFACED(Performed 02/04/2021) * PAP LB HPV HR DNA(Performed 05/12/2020) Performed for follow-up (HCC) * HCG URINE QUALITATIVE - POINT OF CARE(Performed 05/12/2020) Performed for follow-up (HCC) * GLUCOSE PROTEIN KETONE URINE - POINT OF CAR(Performed 05/12/2020) Performed for follow-up (HCC) * CARDIAC RHYTHM STRIP ORDER(Performed 04/24/2020) * APHERESIS/TRANSFUSION ORDER(Performed 04/24/2020) * COMPREHENSIVE METABOLIC PANEL(Performed 04/23/2020) * CBC W AUTO DIFFERENTIAL(Performed 04/23/2020) * COMPREHENSIVE METABOLIC PANEL(Performed 04/22/2020) * CBC W AUTO DIFFERENTIAL(Performed 04/22/2020) * PREPARE FFP UNIT(S)(Performed 04/21/2020) * TYPE + SCREEN PANEL(Performed 04/21/2020) * COMPREHENSIVE METABOLIC PANEL(Performed 04/21/2020) * RENAL FUNCTION PANEL(Performed 04/21/2020) * MAGNESIUM BLOOD(Performed 04/21/2020) * HAPTOGLOBIN(Performed 04/21/2020) * LDH BLOOD(Performed 04/21/2020) * DIFFERENTIAL MANUAL(Performed 04/21/2020) * CBC W AUTO DIFFERENTIAL(Performed 04/21/2020) * DIFFERENTIAL MANUAL(Performed 04/20/2020) * CBC W AUTO DIFFERENTIAL(Performed 04/20/2020) * XR CHEST 2VW(Performed 04/20/2020) Performed for Pre-eclampsia in third trimester (HCC) * CBC W AUTO DIFFERENTIAL(Performed 04/20/2020) * AST BLOOD(Performed 04/20/2020) * ALT(Performed 04/20/2020) * RENAL FUNCTION PANEL(Performed 04/20/2020) * MAGNESIUM BLOOD(Performed 04/20/2020) * HAPTOGLOBIN(Performed 04/20/2020) * LDH BLOOD(Performed 04/20/2020) * CBC W AUTO DIFFERENTIAL(Performed 04/20/2020) * PTT(Performed 04/20/2020) * PT-INR(Performed 04/20/2020) * TRANSFUSE RED BLOOD CELL LEUKOREDUCED UNIT(S)(Performed 04/19/2020) * CBC W AUTO DIFFERENTIAL(Performed 04/19/2020) * CBC W AUTO DIFFERENTIAL(Performed 04/19/2020) * GLUCOSE - POINT OF CARE(Performed 04/19/2020) * RENAL FUNCTION PANEL(Performed 04/19/2020) * MAGNESIUM BLOOD(Performed 04/19/2020) * LACTIC ACID BLOOD(Performed 04/19/2020) * HAPTOGLOBIN(Performed 04/19/2020) * CBC W AUTO DIFFERENTIAL(Performed 04/19/2020) * PT PTT PANEL(Performed 04/19/2020) * GLUCOSE - POINT OF CARE(Performed 04/18/2020) * TRANSFUSE RED BLOOD CELL LEUKOREDUCED UNIT(S)(Performed 04/18/2020) * PT PTT PANEL(Performed 04/18/2020) * CBC W AUTO DIFFERENTIAL(Performed 04/18/2020) * GLUCOSE - POINT OF CARE(Performed 04/18/2020) * PT PTT PANEL(Performed 04/18/2020) * CBC W AUTO DIFFERENTIAL(Performed 04/18/2020) * GLUCOSE - POINT OF CARE(Performed 04/18/2020) * XR ABDOMEN KUB(Performed 04/18/2020) Performed for Hemorrhagic shock (HCC) * DIFFERENTIAL MANUAL(Performed 04/18/2020) * PT PTT PANEL(Performed 04/18/2020) * CBC W AUTO DIFFERENTIAL(Performed 04/18/2020) * GLUCOSE - POINT OF CARE(Performed 04/18/2020) * LACTIC ACID BLOOD(Performed 04/18/2020) * BLOOD GASES ARTERIAL(Performed 04/18/2020) * TRANSFUSE RED BLOOD CELL LEUKOREDUCED UNIT(S)(Performed 04/18/2020) * GLUCOSE - POINT OF CARE(Performed 04/18/2020) * TRANSFUSE RED BLOOD CELL LEUKOREDUCED UNIT(S)(Performed 04/18/2020) * BLOOD GASES ARTERIAL(Performed 04/18/2020) * LACTIC ACID BLOOD(Performed 04/18/2020) * CBC W AUTO DIFFERENTIAL(Performed 04/18/2020) * IMMUNOGLOBULINS IGG/IGM/IGA PANEL(Performed 04/18/2020) * LDH BLOOD(Performed 04/18/2020) * RETIC COUNT(Performed 04/18/2020) * VITAMIN B12(Performed 04/18/2020) * REF LAB COMMENT(Performed 04/18/2020) * BESSY DIRECT(Performed 04/18/2020) * PT PTT PANEL(Performed 04/18/2020) * [id number] ANTIBODY(Performed 04/18/2020) * DBVKGK20 ACTIVITY(Performed 04/18/2020) * FIBRINOGEN ACTIVITY(Performed 04/18/2020) * GLUCOSE - POINT OF CARE(Performed 04/18/2020) * PATHOLOGY PERIPHERAL SMEAR REVIEW(Performed 04/18/2020) Performed for Twin delivery by ([facility]) * XR CHEST 1VW PORTABLE(Performed 04/18/2020) Performed for Intubation of airway performed without difficulty * COAGULATION PANEL W D-DIMER(Performed 04/18/2020) * CBC W AUTO DIFFERENTIAL(Performed 04/18/2020) * BLOOD GASES ARTERIAL(Performed 04/18/2020) * BLOOD GASES ARTERIAL(Performed 04/18/2020) * TRIGLYCERIDES BLOOD(Performed 04/18/2020) * SLIDE SCAN HEMATOLOGY(Performed 04/18/2020) * MAGNESIUM BLOOD(Performed 04/18/2020) * COAGULATION PANEL W D-DIMER(Performed 04/18/2020) * COMPREHENSIVE METABOLIC PANEL(Performed 04/18/2020) * LACTIC ACID BLOOD(Performed 04/18/2020) * CBC W AUTO DIFFERENTIAL(Performed 04/18/2020) * PTT(Performed 04/18/2020) * PT-INR(Performed 04/18/2020) * FIBRINOGEN ACTIVITY(Performed 04/18/2020) * PT EVAL AND TREAT(Performed 04/18/2020) * PATHOLOGY TISSUE EXAM (STL)(Performed 04/18/2020) Performed for Twin delivery by ([facility]) * HEMOGLOBIN A1C(Performed 04/18/2020) * COMPREHENSIVE METABOLIC PANEL(Performed 04/18/2020) * PTT(Performed 04/18/2020) * PT-INR(Performed 04/18/2020) * FIBRINOGEN ACTIVITY(Performed 04/18/2020) * CBC W AUTO DIFFERENTIAL(Performed 04/18/2020) * TRANSFUSE FRESH FROZEN PLASMA UNIT(S)(Performed 04/18/2020) * BLOOD GASES CORD JEREMY(Performed 04/18/2020) * BLOOD GASES CORD ARTERIAL(Performed 04/18/2020) * BLOOD GASES CORD ARTERIAL(Performed 04/18/2020) * BLOOD GASES CORD JEREMY(Performed 04/18/2020) * ENDOTRACHEAL TUBE NOTE(Performed 04/18/2020) * SECTION (EMERGENCY)(Performed 04/18/2020) Performed for Twin delivery by ([facility]) * TRANSFUSE PLATELET PHERESIS UNIT(S)(Performed 04/18/2020) * TRANSFUSE PLATELET PHERESIS UNIT(S)(Performed 04/18/2020) * PTT(Performed 04/18/2020) * PT-INR(Performed 04/18/2020) * FIBRINOGEN ACTIVITY(Performed 04/18/2020) * CBC W AUTO DIFFERENTIAL(Performed 04/18/2020) * TRANSFUSE PLATELET PHERESIS UNIT(S)(Performed 04/17/2020) * TRANSFUSE PLATELET PHERESIS UNIT(S)(Performed 04/17/2020) * URINE MICROSCOPIC ONLY(Performed 04/17/2020) * PTT(Performed 04/17/2020) * PT-INR(Performed 04/17/2020) * COMPREHENSIVE METABOLIC PANEL(Performed 04/17/2020) * RUBELLA ANTIBODY IGG(Performed 04/17/2020) * SYPHILIS ANTIBODY CASCADING REFLEX(Performed 04/17/2020) * HIV-1 HIV-2 ANTIBODY + HIV P24 AG PANEL(Performed 04/17/2020) * FIBRINOGEN ACTIVITY(Performed 04/17/2020) * URINALYSIS REFLEX TO MICROSCOPIC NO CULTURE(Performed 04/17/2020) * URINE DRUG SCREEN IMMUNOASSAY(Performed 04/17/2020) * CULTURE URINE(Performed 04/17/2020) * BLOOD TYPE VERIFICATION(Performed 04/17/2020) * PATHOLOGY PERIPHERAL SMEAR REVIEW(Performed 04/17/2020) Performed for Twin delivery by ([facility]) * PREPARE RBC LEUKOREDUCED UNIT(Performed 04/17/2020) * PREPARE RBC LEUKOREDUCED UNIT(Performed 04/17/2020) * PREPARE CRYOPRECIPITATE UNIT(S)(Performed 04/17/2020) * PREPARE RBC LEUKOREDUCED UNIT(Performed 04/17/2020) * PREPARE RBC LEUKOREDUCED UNIT(Performed 04/17/2020) * PREPARE FFP UNIT(S)(Performed 04/17/2020) * PREPARE PLATELET PHERESIS UNIT(S)(Performed 04/17/2020) * PREPARE PLATELET PHERESIS UNIT(S)(Performed 04/17/2020) * PREPARE PLATELET PHERESIS UNIT(S)(Performed 04/17/2020) * PREPARE RBC LEUKOREDUCED UNIT(Performed 04/17/2020) * TYPE + SCREEN PANEL(Performed 04/17/2020) Performed for Twin gestation in third trimester, unspecified multiple gestation type ([facility]) * SLIDE SCAN HEMATOLOGY(Performed 04/17/2020) Performed for Twin gestation in third trimester, unspecified multiple gestation type ([facility]) * CBC W AUTO DIFFERENTIAL(Performed 04/17/2020) Performed for Twin gestation in third trimester, unspecified multiple gestation type ([facility]) * SONOGRAM - COMPLETE(Performed 01/23/2020) Performed for Evaluate anatomy not seen on prior sonogram * URINE DRUG SCREEN IMMUNOASSAY(Performed 01/23/2020) Performed for Supervision of high risk in second trimester ([facility]) * CULTURE URINE(Performed 01/23/2020) Performed for Supervision of high risk in second trimester ([facility]), Other iron deficiency anemia, Chronic hepatitis C without hepatic coma ([facility]) * HIV-1 HIV-2 ANTIBODY + HIV P24 AG PANEL(Performed 12/19/2019) Performed for Dichorionic diamniotic twin in second trimester ([facility]) * RPR W REFLEX TO TITER (MONITOR)(Performed 12/19/2019) Performed for Dichorionic diamniotic twin in second trimester ([facility]) * SONOGRAM - COMPLETE(Performed 12/19/2019) * IMAGING/RADIOLOGY/XRAY RESULTS ORDER(Performed 12/11/2019) * RUBELLA ANTIBODY IGG(Performed 12/09/2019) Performed for Dichorionic diamniotic twin in second trimester ([facility]) * CBC W AUTO DIFFERENTIAL(Performed 12/09/2019) Performed for Anemia, unspecified type * TRANSFUSE RED BLOOD CELL LEUKOREDUCED UNIT(S)(Performed 12/09/2019) * TRANSFUSE RED BLOOD CELL LEUKOREDUCED UNIT(S)(Performed 12/08/2019) * HEPATITIS C RNA QUANTITATIVE(Performed 12/08/2019) Performed for Anemia, unspecified type, Chronic hepatitis C without hepatic coma (HCC), Thrombocytopenia affecting (HCC) * COAGULATION PANEL W D-DIMER(Performed 12/08/2019) Performed for Anemia, unspecified type * CARDIOLIPIN ANTIBODY IGG/IGM PANEL(Performed 12/08/2019) Performed for Anemia, unspecified type, Chronic hepatitis C without hepatic coma (HCC), Thrombocytopenia affecting (HCC) * BETA-2 GLYCOPROTEIN 1 ANTIBODY IGG/IGM PANEL(Performed 12/08/2019) Performed for Anemia, unspecified type, Chronic hepatitis C without hepatic coma (HCC), Thrombocytopenia affecting (HCC) * LUPUS ANTICOAGULANT PANEL(Performed 12/08/2019) Performed for Anemia, unspecified type, Chronic hepatitis C without hepatic coma (HCC), Thrombocytopenia affecting (HCC) * HEPATITIS SCREEN ACUTE(Performed 12/08/2019) Performed for Anemia, unspecified type, Chronic hepatitis C without hepatic coma (HCC), Thrombocytopenia affecting (HCC) * MARQUITA BLOOD SCREEN W/REFLEX TITER(Performed 12/08/2019) Performed for Anemia, unspecified type, Chronic hepatitis C without hepatic coma (HCC), Thrombocytopenia affecting (HCC) * VITAMIN B12(Performed 12/08/2019) Performed for Anemia, unspecified type, Chronic hepatitis C without hepatic coma (HCC), Thrombocytopenia affecting (HCC) * PREPARE RBC LEUKOREDUCED UNIT(Performed 12/08/2019) * URINE DRUG SCREEN IMMUNOASSAY(Performed 12/08/2019) Performed for Anemia, unspecified type * RETIC COUNT(Performed 12/08/2019) Performed for Anemia, unspecified type, Chronic hepatitis C without hepatic coma (HCC), Thrombocytopenia affecting (HCC) * TSH REFLEX FREE T4(Performed 12/08/2019) Performed for Anemia, unspecified type, Chronic hepatitis C without hepatic coma (HCC), Thrombocytopenia affecting (HCC) * FOLATE(Performed 12/08/2019) Performed for Anemia, unspecified type, Chronic hepatitis C without hepatic coma (HCC), Thrombocytopenia affecting (HCC) * HEPATITIS B SURFACE ANTIGEN W RFLX CONFIRMATION(Performed 12/08/2019) Performed for Transaminitis * RUBELLA ANTIBODY IGM TITER(Performed 12/08/2019) Performed for Anemia, unspecified type, Transaminitis * CYTOMEGALOVIRUS ANTIBODY IGG/IGM BLOOD(Performed 12/08/2019) Performed for Anemia, unspecified type * HAPTOGLOBIN(Performed 12/08/2019) Performed for Anemia, unspecified type * LDH BLOOD(Performed 12/08/2019) Performed for Anemia, unspecified type * COMPREHENSIVE METABOLIC PANEL(Performed 12/08/2019) Performed for Anemia, unspecified type * FIBRINOGEN ACTIVITY(Performed 12/08/2019) Performed for Anemia, unspecified type * HEMOGLOBIN ELECTROPHORESIS(Performed 12/08/2019) Performed for Anemia, unspecified type * FERRITIN(Performed 12/08/2019) Performed for Anemia, unspecified type * IRON + TRANSFERRIN PANEL(Performed 12/08/2019) Performed for Anemia, unspecified type * HEPATITIS C RNA QUANTITATIVE(Performed 12/08/2019) Performed for Anemia, unspecified type * PREPARE RBC LEUKOREDUCED UNIT(Performed 12/08/2019) * BLOOD TYPE VERIFICATION(Performed 12/08/2019) * TYPE + SCREEN PANEL(Performed 12/08/2019) * SLIDE SCAN HEMATOLOGY(Performed 12/08/2019) Performed for Anemia, unspecified type * CBC W AUTO DIFFERENTIAL(Performed 12/08/2019) Performed for Anemia, unspecified type * TRANSFUSE RED BLOOD CELL LEUKOREDUCED UNIT(S) * TRANSFUSE FRESH FROZEN PLASMA UNIT(S) Results * PAP IG LB+HPV APTIMA (08/19/2021 11:34 AM IT INFRASTRUCTURE CONSULTANT) Diagnosis Comment 08/22/2021 7:09 AM IT INFRASTRUCTURE CONSULTANT [facility] ([facility]) Comment:NEGATIVE FOR INTRAEP ITHELIAL LESION OR MALIGNANCY. Specimen Adequacy Comment 022 7:09 AM IT INFRASTRUCTURE CONSULTANT [facility] ([facility]) Comment: Satisfactory for evaluation. ??Endocervical and/or squamous metaplastic cells (endocervical component) are present. Performed by Comment 08/22/2021 7:09 AM IT INFRASTRUCTURE CONSULTANT [facility] ([facility]) Comment:Nella Montes, Clerk Rating (ASCP) Comment . 08/22/2021 7:09 AM IT INFRASTRUCTURE CONSULTANT [facility] ([facility]) Note Comment 08/22/2021 7:09 AM IT INFRASTRUCTURE CONSULTANT [facility] ([facility]) Comment: The Pap smear is a screening test designed to aid in the detection of premalignant and malignant conditions of the uterine cervix. ??It is not a diagnostic procedure and should not be used as the sole means of detecting cervical cancer. ??Both false-positive and false-negative reports do occur. IGLBP CPT Code Automation Comment 08/22/2021 7:09 AM IT INFRASTRUCTURE CONSULTANT [facility] ([facility]) Comment: This liquid based ThinPrep(R) pap test was screened with the use of an image guided system. Human papillomavirus Aptima Negative Negative 08/22/2021 7:09 AM IT INFRASTRUCTURE CONSULTANT [facility] ([facility]) Comment: This nucleic acid amplification test detects fourteen high-risk HPV types (16,18,31,33,35,39,45,51,52,56,58,59,66,68) without differentiation. Pathology/Cytolo gy ENTIRE ENDOCERVIX / Unknown Collection / Unknown 08/19/2021 11:34 AM IT INFRASTRUCTURE CONSULTANT 08/19/2021 12:41 PM IT INFRASTRUCTURE CONSULTANT Narrative [facility] ([facility]) - 08/22/2021 7:09 AM IT INFRASTRUCTURE CONSULTANT Performed at: ??01 - [facility] [address] ??[id number] Nut Dehydrator Operator: Stephanie Lemus MD, Phone: ??[phone] Performed at: ??02 - [facility] [address] ??[id number] Nut Dehydrator Operator: Stephanie Lemus MD, Phone: ??[phone] Specimen Comment: No. of containers..01 ThinPrep Vial Adrienne Roth MD LAB - PATHOLOGY/CY TOLOGY ORDERABLES Performing Organization Address City/State/[facility] Co de Phone Number [facility] ([facility]) [address] [place] [address] * PATHOLOGY TISSUE EXAM (STL) (02/18/2021 1:41 PM CDT) Only the most recent of3 resultswithin the time period is included. Case Report Surgical Pathology Report ? Case: [id number] ? Authorizing Provider: ??Adrienne Roth MD ?Collected: ? 02/18/2021 01:41 PM ? Ordering Location: ? [facility]/ ?Received: ?02/18/2021 02:48 PM ? EVALUATION UNIT ? Pathologist: ? Dyan Simpson MD ? Specimens: ?? A) - Cervix Conization, Central LEEP ? B) - Cervix Conization, Anterior LEEP ? C) - Endocervix Curettings, ECC ? 02/20/2021 6:34 PM CDT [facility] Final Diagnosis Uterus, cervix, central, LEEP conization (A): - High-grade squamous intraepithelial lesion (HSIL); all margins negative for HSIL Uterus, cervix, anterior lip, LEEP conization (B): - No pathologic diagnosis (ectocervix only) Uterus, endocervix, curettage (C): - Mucin with very scant benign endocervical cells (see description) 02/20/2021 6:34 PM [facility] Clinical History The patient is a 30-year-old woman who presented for definitive treatment of HSIL seen on cervical biopsy. 02/20/2021 6:34 PM [facility] Gross Description The requisition and specimens are identified with patient's name and date of . Received in formalin, specimen a cervix BX central consist of a single fragment of rectangular jean-baptiste soft tissue measuring 1.6 x 1.5 x 0.8 cm. The ectocervix is pink, smooth and shiny with slitlike os measuring 0.7 cm. The endocervical margin is inked blue and rest of the surgical resection margin is inked black. The specimen is serially sectioned and entirely submitted from cassettes A1 to A4. Received in formalin, specimen B cervix BX consists of a pink-jean-baptiste fragment of soft tissue 1.5 x 0.8 x 0.5 cm. The shiny, smooth pink-jean-baptiste ectocervix measures 1.5 x 0.4 cm. The surgical resection margin is inked black. The specimen is serially sectioned and entirely submitted in cassette B1 and B2. Received in formalin, specimen C endocrvx teller supervisor consists of a white-jean-baptiste brush with minimally attached mucoid, brown-jean-baptiste soft tissue measuring 0.5 x 0.5 by less than 0.1 cm submitted in toto in cassette C1. AR 02/20/2021 6:34 PM [facility] Microscopic Description Microscopic examination substantiates the final diagnosis. Transformation zone is present in specimen A central , but not in specimen B anterior lip , which has only ectocervix. The central (A) specimen has moderate amounts of WIL 3 / high grade squamous intraepithelial lesion (HSIL) involving the surface and rare superficial endocervical glands (A3, A4). Endocervical, ectocervical, and deep margins are free of WIL / squamous intraepithelial lesion. The endocervical curettings (C) consist of mucus with fewer than 10 columnar mucinous cells, a few lymphocytes, and no squamous cells. There is no intact epithelium. 02/20/2021 6:34 PM CDT [facility] Disclaimer All histochemical and/or immunohistochemical results are interpreted with controls that demonstrate appropriate staining reactions before reporting results. Note on use of immunocytochemistry reagents: This test was developed and its performance characteristic determined by [facility], Department of Laboratory Medicine. It has not been cleared or approved by the U.S. Food and Drug Administration (FDA). The FDA has determined that such clearance or approval is not necessary. The test is used for clinical purpose. It should not be regarded as investigational or for research. This laboratory is certified to perform high complexity testing. The performance characteristics of the IHC/LUCÍA assays have been validated on formalin-fixed paraffin embedded tissues only. The assays have not been validated on decalcified tissues. Results should be interpreted with caution. 02/20/2021 6:34 PM CDT [facility] Embedded Images 02/20/2021 6:34 PM CDT [facility] Pathology/Cytology SPECIMEN FROM LESION OF UTERINE CERVIX OBTAINED BY CONE BIOPSY / Unknown Collection / Unknown 02/18/2021 1:41 PM CDT 02/18/2021 2:48 PM CDT Miscellaneous samples (specimen) SPECIMEN FROM LESION OF UTERINE CERVIX OBTAINED BY CONE BIOPSY / Unknown 02/18/2021 1:41 PM CDT 02/18/2021 2:48 PM CDT Miscellaneous samples (specimen) CURETTINGS / Unknown 02/18/2021 1:41 PM CDT 02/18/2021 2:48 PM CDT Adrienne Roth MD LAB - PATHOLOGY/CY TOLOGY ORDERABLES [facility] [address] [place] [address] * HCG URINE QUALITATIVE - POCT (IP) INTERFACED (02/18/2021 11:48 AM CDT) Only the most recent of2 resultswithin the time period is included. HCG Qual Urine Negative Negative 02/18/2021 11:53 AM CDT [facility] Urine URINE / Unknown 02/18/2021 1 1:48 AM CDT 02/18/2021 11:53 AM CDT Adrienne Roth MD LAB - POINT OF CAR E ORDERABLES [facility] [address] [place] [address] * (ABNORMAL) PAP LB HPV HR DNA (05/12/2020 12:08 PM CDT) Diagnosis Comment(A) 05/19/2020 12:08 PM CDT [facility] [facility]) Comment: EPITHELIAL CELL ABNORMALITY. ATYPICAL SQUAMOUS CELLS, CANNOT EXCLUDE HIGH-GRADE SQUAMOUS INTRAEPITHELIAL LESION (ASC-H). Recommendation Comment(A) 05/19/2020 12:08 PM CDT [facility] ([facility]) Comment:Suggest colposcopy a nd biopsy if indicated. Specimen Adequacy Comment 020 12:08 PM CDT [facility] ([facility]) Comment: Satisfactory for evaluation. ??Endocervical and/or squamous metaplastic cells (endocervical component) are present. Performed by Comment 05/19/2020 12:08 PM CDT [facility] ([facility]) Comment:Kate Turner, Cyto technologist (ASCP) Electronically Signed by Comment 05/19/2020 12:08 PM CDT [facility] ([facility]) Comment:Cyndee Howard MD, Pa thologist Comment . 05/19/2020 12:08 PM CDT [facility] ([facility]) Pathologist Provided ICD10 Comment 05/19/2020 12:08 PM CDT [facility] ([facility]) Comment:R87.611 Note Comment 05/19/2020 12:08 PM CDT [facility] ([facility]) Comment: The Pap smear is a screening test designed to aid in the detection of premalignant and malignant conditions of the uterine cervix. ??It is not a diagnostic procedure and should not be used as the sole means of detecting cervical cancer. ??Both false-positive and false-negative reports do occur. Human papillomavirus High Risk Positive(A ) Negative 05/19/2020 12:08 PM CDT [facility] ([facility]) Comment: This nucleic acid amplification high-risk HPV test detects thirteen high-risk types (16,18,31,33,35,39,45,51,52,56,58,59,68) without differentiation. Pathology/Cytolo gy PART OF UTERINE CERVIX / Unknown Collection / Unknown 05/12/2020 12:08 PM CDT 05/12/2020 12:22 PM CDT Narrative [facility] ([facility]) - 05/19/2020 12:08 PM CDT Performed at: ??01 - [facility] [address] ??[id number] Nut Dehydrator Operator: Stephanie Lemus MD, Phone: ??[phone] Performed at: ??02 - [facility] [address] ??[id number] Nut Dehydrator Operator: Stephanie Lemus MD, Phone: ??[phone] Specimen Comment: Source.............Cervix;Endocervix Specimen Comment: No. of containers..01 ThinPrep Vial Tuan Platt MD LAB - PATHOLOGY/CYTO LOGY ORDERABLES [facility] ([facility]) [address] [place] [address] * GLUCOSE PROTEIN KETONE URINE - POINT OF CARE (05/12/2020 10:33 AM CDT) Glucose UA neg Negative [facility] Protein UA neg Negative [facility] Ketone UA neg Negative [facility] QC Verified Yes Yes [facility] POC T TESTING Urine URINE / Unknown 05/12/2020 1 0:33 AM CDT Lola Olson MD LAB - POINT OF [place] RE ORDERABLES [facility] [address] [phone] * HCG URINE QUALITATIVE - POINT OF CARE (05/12/2020 10:33 AM CDT) HCG Qual Urine Negative Negative [facility] QC Verified Yes Yes [facility] POC T TESTING Urine URINE / Unknown 05/12/2020 1 0:33 AM CDT Lola Olson MD LAB - POINT OF [place] RE ORDERABLES [facility] POCT TESTING [address] [phone] * CARDIAC RHYTHM STRIP ORDER (04/24/2020 1:36 PM CDT) Narrative 04/24/2020 1:36 PM CDT Ordered by an unspecified provider. Scanned Document CARDIAC SERVICES ORD ERABLES * APHERESIS/TRANSFUSION ORDER (04/24/2020 1:36 PM CDT) Narrative 04/24/2020 1:36 PM CDT Ordered by an unspecified provider. Scanned Document NURSING - VITAL SIGN S AND ASSESSMENT * (ABNORMAL) CBC W AUTO DIFFERENTIAL (04/23/2020 6:01 AM CDT) Only the most recent of20 resultswithin the time period is included. WBC 15.8(H) 4.4 - 10.7 x10E9/L 04/23/2020 6:44 AM CDT [facility] WBC Corrected 04/23/2020 6:44 AM CDT [facility] RBC 2.97(L) 3.80 - 5.20 x10E12/L 04/23/2020 6:44 AM CDT [facility] Hemoglobin 8.4(L) 12.0 - 15.6 gm/dL 04/23/2020 6:44 AM CDT [facility] Hematocrit 25.6(L) 35.9 - 45.5 % 04/23/2020 6:44 AM CDT [facility] MCV 86.2 80.7 - 98.3 fl 04/23/2020 6:44 AM CDT [facility] MCH 28.3 26.7 - 34.0 pg 04/23/2020 6:44 AM CDT [facility] MCHC 32.8 30.8 - 35.9 gm/dL 04/23/2020 6:44 AM CDT [facility] Platelet Count 272 153 - 416 x10E9/L 04/23/2020 6:44 AM [facility] RDW-CV 19.6(H) 12.1 - 14.9 % 04/23/2020 6:44 AM [facility] MPV 10.8 9.4 - 12.9 fl 04/23/2020 6:44 AM [facility] Neutrophils % 79.2(H) 44.0 - 73.0 % 04/23/2020 6:44 AM [facility] Lymphocytes % 11.4(L) 20.0 - 43.0 % 04/23/2020 6:44 AM [facility] Monocytes % 5.2 5.0 - 13.0 % 04/23/2020 6:44 AM [facility] Eosinophils % 0.1 0.0 - 6.0 % 04/23/2020 6:44 AM [facility] Basophils % 0.2 0.0 - 2.0 % 04/23/2020 6:44 AM [facility] Immature Granulocytes 3.9(H) 0 - 1 % 04/23/2020 6:44 AM [facility] Neutrophil Absolute 12.50(H) 2.01 - 7.14 x10E9/L 04/23/2020 6:44 AM [facility] Lymphocytes Absolute 1.80 1.07 - 3.94 x10E9/L 04/23/2020 6:44 AM [facility] Monocytes Absolute 0.82 0.26 - 1.07 x10E9/L 04/23/2020 6:44 AM [facility] Eosinophils Absolute 0.02 0 - 0.47 x10E9/L 04/23/2020 6:44 AM [facility] Basophils Absolute 0.03 0 - 0.08 x10E9/L 04/23/2020 6:44 AM [facility] Immature Granulocytes Absolute 0.62(H) 0.00 - 0.06 x10E9/L 04/23/2020 6:44 AM [facility] nRBC Auto 4 /100 WBC 04/23/2020 6:44 AM [facility] Blood BLOOD SPECIMEN / Unknown Lab Venipuncture / Unknown 04/23/2020 6:01 AM CDT 04/23/2020 6:30 AM CDT Maikel Ring MD LAB - HEMATOLOGY ORDERABLES [facility] [address] [place] [address] * (ABNORMAL) COMPREHENSIVE METABOLIC PANEL (04/23/2020 6:01 AM CDT) Only the most recent of7 resultswithin the time period is included. Glucose 82 70 - 105 mg/dL 04/23/2020 7:01 AM [facility] Sodium 135(L) 136 - 145 mmol/L 04/23/2020 7:01 AM [facility] Potassium 3.8 3.5 - 5.1 mmol/L 04/23/2020 7:01 AM [facility] Chloride 102 98 - 107 mmol/L 04/23/2020 7:01 AM [facility] CO2 25 23 - 31 mmol/L 04/23/2020 7:01 AM [facility] Calcium 7.6(L) 8.4 - 10.4 mg/dL 04/23/2020 7:01 AM [facility] Anion Gap 8 8 - 16 mmol/L 04/23/2020 7:01 AM [facility] BUN 14 7 - 18.7 mg/dL 04/23/2020 7:01 AM [facility] Creatinine 0.60 0.57 - 1.11 mg/dL 04/23/2020 7:01 AM [facility] Alkaline Phosphatase 112 40 - 150 U/L 04/23/2020 7:01 AM [facility] ALT 29 0 - 61 U/L 04/23/2020 7:01 AM [facility] AST 34 5 - 34 U/L 04/23/2020 7:01 AM [facility] Protein Total 5.7(L) 6.4 - 8.3 gm/dL 04/23/2020 7:01 AM [facility] Albumin 2.2(L) 3.5 - 5.2 gm/dL 04/23/2020 7:01 AM [facility] Bilirubin Total 0.5 0.2 - 1.0 mg/dL 04/23/2020 7:01 AM [facility] eGFR by MDRD >60 >60 mL/min/1.7 3m2 04/23/2020 7:01 AM CDT [facility] eGFR by MDRD >60 >60 mL/min/1.7 3m2 04/23/2020 7:01 AM CDT [facility] Blood BLOOD SPECIMEN / Unknown Lab Venipuncture / Unknown 04/23/2020 6:01 AM CDT 04/23/2020 6:30 AM CDT Shira Gracia MD LAB - CHEMISTRY ORD ERABLES Performing Organization Address City/[facility]/ZIP Co de Phone Number [facility] [address] [place] [address] * PREPARE FFP UNIT(S), 1 Units (04/21/2020 6:41 AM CDT) Only the most recent of2 resultswithin the time period is included. Unit Description Thawed Plasma 5D [facility] Unit ABO AB [facility] Unit Rh POS [facility] Product Number [id number] [facility] Unit Donor # [id number] [facility] C BLOOD BANK LAB Unit Status transfused [facility] Product Code [id number] [facility] Blood Type Barcode 8400 [facility] Expiration Date [id number] S [facility] Blood Bank BLOOD SPECIMEN / Unknown 04/21/2020 6:41 AM CDT 04/21/2020 6:48 AM CDT Marisa James MD LAB - BLOOD BANK ORD ERABLES Performing Organization Address City/[facility] Co de Phone Number [facility] [address] [phone] * TYPE + SCREEN PANEL (04/21/2020 6:41 AM CDT) Only the most recent of3 resultswithin the time period is included. ABO Rh A POS 04/21/2020 7:44 AM CDT [facility] Comment:History checked. Antibody Screen NEG 0 7:44 AM CDT [facility] Blood Bank BLOOD SPECIMEN / Unknown Lab Venipuncture / Unknown 04/21/2020 6:41 AM CDT 04/21/2020 6:48 AM CDT Danilo Rodríguez MD LAB - BLOOD BANK ORD ERABLES [facility] [address] [phone] * (ABNORMAL) RENAL FUNCTION PANEL (04/21/2020 6:41 AM CDT) Only the most recent of3 resultswithin the time period is included. Glucose 118(H) 70 - 105 mg/dL 04/21/2020 7:46 AM [facility] Sodium 133(L) 136 - 145 mmol/L 04/21/2020 7:46 AM [facility] Potassium 3.0(L) 3.5 - 5.1 mmol/L 04/21/2020 7:46 AM [facility] Chloride 101 98 - 107 mmol/L 04/21/2020 7:46 AM [facility] CO2 26 23 - 31 mmol/L 04/21/2020 7:46 AM T [facility] Calcium 6.9(LL) 8.4 - 10.4 mg/dL 04/21/2020 7:46 AM [facility] Anion Gap 6(L) 8 - 16 mmol/L 04/21/2020 7:46 AM T [facility] BUN 13 7 - 18.7 mg/dL 04/21/2020 7:46 AM CDT [facility] Creatinine 0.65 0.57 - 1.11 mg/dL 04/21/2020 7:46 AM T [facility] Albumin 2.1(L) 3.5 - 5.2 gm/dL 04/21/2020 7:46 AM [facility] Phosphorus 3.6 2.3 - 4.7 mg/dL 04/21/2020 7:46 AM [facility] eGFR by MDRD >60 >60 mL/min/1.7 3m2 04/21/2020 7:46 AM [facility] eGFR by MDRD >60 >60 mL/min/1.7 3m2 04/21/2020 7:46 AM [facility] Blood BLOOD SPECIMEN / Unknown Lab Venipuncture / Unknown 04/21/2020 6:41 AM CDT 04/21/2020 6:48 AM CDT Clem Brown MD LAB - CHEMISTRY MIRI GO Performing Organization Address City/[facility]/ZIP Co de Phone Number [facility] [address] [place] [phone] * (ABNORMAL) MAGNESIUM BLOOD (04/21/2020 6:41 AM CDT) Only the most recent of4 resultswithin the time period is included. Magnesium 4.6(H) 1.6 - 2.6 mg/dL 04/21/2020 7:38 AM CDT [facility] Blood BLOOD SPECIMEN / Unknown Lab Venipuncture / Unknown 04/21/2020 6:41 AM CDT 04/21/2020 6:48 AM CDT Clem Brown MD LAB - CHEMISTRY MIRI GO Performing Organization Address [facility] Co de Phone Number [facility] [address] [place] [phone] * (ABNORMAL) LDH BLOOD (04/21/2020 6:41 AM CDT) Only the most recent of4 resultswithin the time period is included. LDH 449(H) 125 - 220 U/L 04/21/2020 7:38 AM CDT [facility] Blood BLOOD SPECIMEN / Unknown Lab Venipuncture / Unknown 04/21/2020 6:41 AM CDT 04/21/2020 6:48 AM CDT Turner Castillo MD LAB - CHEMISTRY MIRI GO Performing Organization Address City/[facility]/ZIP Co de Phone Number [facility] [address] [place] [phone] * HAPTOGLOBIN (04/21/2020 6:41 AM CDT) Only the most recent of4 resultswithin the time period is included. Haptoglobin 42 30 - 200 mg/dL 04/21/2020 7:38 AM CDT [facility] Blood BLOOD SPECIMEN / Unknown Lab Venipuncture / Unknown 04/21/2020 6:41 AM CDT 04/21/2020 6:48 AM CDT Turner Castillo MD LAB - CHEMISTRY MIRI GO [facility] Organization Address City/State/ZIP Co de Phone Number [facility] [address] [place] [address] * (ABNORMAL) DIFFERENTIAL MANUAL (04/21/2020 4:45 AM CDT) Only the most recent of3 resultswithin the time period is included. WBC Auto 22.9 x10E9/L 04/21/2020 7:18 AM CDT [facility] WBC Corrected 04/21/2020 7:18 AM CDT [facility] nRBC 3 /100 WBC 04/21/2020 7:18 AM CDT [facility] Neutrophil % Manual 89(H) 44 - 73 % 04/21/2020 7:18 AM CDT [facility] Lymphocytes % Manual 5(L) 20 - 43 % 04/21/2020 7:18 AM CDT [facility] Monocytes % Manual 3(L) 5 - 13 % 2019 7:18 AM CDT [facility] Band % Manual 2 0 - 11 % 04/21/2020 7:18 AM CDT [facility] [place] Manual 1(H) <=0 % 04/21/2020 7:18 AM T [facility] Cells Counted 100 # cells 04/21/2020 7:18 AM CDT [facility] WBC Morph Normal 04/21/2020 7:18 AM CDT [facility] Anisocytosis 2+(A) None 04/21/2020 7:18 AM CDT [facility] Polychromasia 1+(A) None 04/21/2020 7:18 AM CDT [facility] Platelet Estimation Normal 04/21/2020 7:18 AM CDT [facility] Blood BLOOD SPECIMEN / Unknown Lab Venipuncture / Unknown 04/21/2020 4:45 AM CDT 04/21/2020 5:51 AM CDT Maikel Ring MD LAB - HEMATOLOGY ORDERABLES Performing Organization Address City/[facility] Co de Phone Number [facility] [address] [place] [address] * XR CHEST 2VW (04/20/2020 5:11 PM CDT) Anatomical Region Laterality Modality Chest Radiographic Alyssa ging 04/20/2020 5:19 PM CDT Impressions 04/20/2020 5:21 PM CDT Small bilateral pleural effusions *Reading Radiologist: Magy Sunshine on 04/20/2020 at 5:21 PM Narrative 04/20/2020 5:21 PM CDT Chest, 2 views DATE: 04/20/2020 at 1640 hours INDICATION: Chest pain and preeclampsia. FINDINGS: Since 04/18/2020 the endotracheal and presumptive nasogastric tubes have been removed. ??The lungs are clear but small bilateral pleural effusions are seen on the lateral view. ??There is no vascular congestion. ??The heart size is normal. ??Bony thorax is unremarkable. Procedure Note Magy Sunshine MD - 04/20/2020 Chest, 2 views DATE: 04/20/2020 at 1640 hours INDICATION: Chest pain and preeclampsia. FINDINGS: Since 04/18/2020 the endotracheal and presumptive nasogastric tubes have been removed. The lungs are clear but small bilateral pleural effusions are seen on the lateral view. There is no vascular congestion. The heart size is normal. Bony thorax is unremarkable. IMPRESSION Small bilateral pleural effusions *Reading Radiologist: Magy Sunshine on 04/20/2020 at 5:21 PM Shira Gracia MD DIAGNOSTIC IMAGING ORDERABLES * ALT (04/20/2020 10:42 AM CDT) ALT 19 0 - 61 U/L 04/20/2020 2:26 PM CDT [facility] Blood BLOOD SPECIMEN / Unknown Lab Venipuncture / Unknown 04/20/2020 10:42 AM CDT 04/20/2020 10:42 AM CDT Ron Quinn MD LAB - CHEMISTRY MIRI GO [facility] [address] [place] [phone] * AST BLOOD (04/20/2020 10:42 AM CDT) AST 27 5 - 34 U/L 04/20/2020 2:26 PM CDT [facility] Blood BLOOD SPECIMEN / Unknown Lab Venipuncture / Unknown 04/20/2020 10:42 AM CDT 04/20/2020 10:42 AM CDT Ron Quinn MD LAB - CHEMISTRY RIGOBERTOHéctor GO Performing Organization Address [facility] Co de Phone Number [facility] [address] [place] [address] * PTT (04/20/2020 10:41 AM CDT) Only the most recent of5 resultswithin the time period is included. PTT 30.7 23.0 - 38.4 sec 04/20/2020 11:00 AM CDT [facility] Blood BLOOD SPECIMEN / Unknown Lab Venipuncture / Unknown 04/20/2020 10:41 AM CDT 04/20/2020 10:41 AM CDT Narrative [facility] - 04/20/2020 11:00 AM CDT Heparin Therapeutic Range for PTT: ??71.0 - 109.0 seconds. Turner Castillo MD LAB - COAGULATION OR DERABLES Performing Organization Address [facility] Co de Phone Number [facility] [address] [place] [address] * PT-INR (04/20/2020 10:41 AM CDT) Only the most recent of5 resultswithin the time period is included. PT 12.3 12.1 - 14.8 sec 04/20/2020 10:59 AM CDT [facility] INR 1.0 0.9 - 1.1 04/20/2020 10:59 AM CDT [facility] Blood BLOOD SPECIMEN / Unknown Lab Venipuncture / Unknown 04/20/2020 10:41 AM CDT 04/20/2020 10:41 AM CDT Narrative [facility] - 04/20/2020 10:59 AM CDT Conventional Warfarin Anticoagulant Therapy: INR Reference Range: ??2.0-3.0 Intensive Warfarin Anticoagulant Therapy: INR Reference Range: ? 2.5-3.5 Turner Castillo MD LAB - COAGULATION OR DERABLES Performing Organization Address [facility] Co de Phone Number [facility] [address] [place] [address] * TRANSFUSE RED BLOOD CELL LEUKOREDUCED UNIT(S) (04/20/2020 2:36 AM CDT) Shayna Chirinos MD NURSING - BLOOD P ADRIA TRANSFUSION * (ABNORMAL) GLUCOSE - POINT OF CARE (04/19/2020 9:02 AM CDT) Only the most recent of7 resultswithin the time period is included. Glucose WB/POC 122(H) 70 - 106 mg/dL 04/19/2020 11:57 PM CDT [facility] Specimen Type Arterial/C apillary 04/19/2020 11:57 PM CDT [facility] Blood BLOOD SPECIMEN / Unknown 04/19/2020 9:02 AM CDT 04/19/2020 11:57 PM CDT Phuong Frazier MD LAB - POINT OF CARE ORDERABLES Performing Organization Address [facility] Co de Phone Number [facility] [address] [place] [address] * LACTIC ACID BLOOD (04/19/2020 3:51 AM CDT) Only the most recent of4 resultswithin the time period is included. Lactic Acid 1.2 0.5 - 2.2 mmol/L 04/19/2020 4:27 AM CDT [facility] Blood BLOOD SPECIMEN / Unknown Venipuncture / Unknown 04/19/2020 3:51 AM CDT 04/19/2020 4:05 AM CDT Maikel Ring MD LAB - CHEMISTRY O RDERABLES Performing Organization Address [facility] Co de Phone Number [facility] [address] [place], [place] [phone] * PT PTT PANEL (04/19/2020 3:50 AM CDT) Only the most recent of5 resultswithin the time period is included. PT 12.6 12.1 - 14.8 sec 04/19/2020 4:27 AM CDT [facility] INR 1.0 0.9 - 1.1 04/19/2020 4:27 AM CDT [facility] PTT 27.8 23.0 - 38.4 sec 04/19/2020 4:27 AM CDT [facility] Blood BLOOD SPECIMEN / Unknown Venipuncture / Unknown 04/19/2020 3:50 AM CDT 04/19/2020 4:05 AM CDT Narrative [facility] - 04/19/2020 4:27 AM CDT Conventional Warfarin Anticoagulant Therapy: INR Reference Range: ??2.0-3.0 Intensive Warfarin Anticoagulant Therapy: INR Reference Range: ? 2.5-3.5 Heparin Therapeutic Range for PTT: ??71.0 - 109.0 seconds. Clem Brown MD LAB - COAGULATION OR DERABLES Performing Organization Address [facility] Co de Phone Number [facility] [address] [place] [phone] * TRANSFUSE RED BLOOD CELL LEUKOREDUCED UNIT(S) (04/19/2020 1:10 AM CDT) Maikel Ring MD NURSING - BLOOD P ADRIA TRANSFUSION * TRANSFUSE RED BLOOD CELL LEUKOREDUCED UNIT(S) (04/18/2020 11:39 PM CDT) Mayuri Norton MD NURSING - BLOOD PROD TRANSFUSION * XR ABDOMEN KUB (04/18/2020 4:29 PM CDT) Anatomical Region Laterality Modality Abdomen Radiographic Alyssa ging 04/18/2020 4:31 PM CDT Impressions 04/18/2020 4:32 PM CDT NG tube ends in the distal stomach. *Reading Radiologist: Magy Sunshine on 04/18/2020 at 4:32 PM Narrative 04/18/2020 4:32 PM CDT Abdomen, one view portable DATE: 04/18/2020 at 1625 hours INDICATION: Tube placement. FINDINGS: A nasal or orogastric tube ends in the distal stomach. ??Visualized bowel gas pattern is normal. ??The lung bases are clear. ??A temperature probe ends in the mid to distal esophagus. ??A catheter in the right lower quadrant ends slightly to the right of L5. Procedure Note Magy Sunshine MD - 04/18/2020 Abdomen, one view portable DATE: 04/18/2020 at 1625 hours INDICATION: Tube placement. FINDINGS: A nasal or orogastric tube ends in the distal stomach. Visualized bowel gas pattern is normal. The lung bases are clear. A temperature probe ends in the mid to distal esophagus. A catheter in the right lower quadrant ends slightly to the right of L5. IMPRESSION NG tube ends in the distal stomach. *Reading Radiologist: Magy Sunshine on 04/18/2020 at 4:32 PM Clem Brown MD DIAGNOSTIC IMAGING O RDERABLES * (ABNORMAL) BLOOD GASES ARTERIAL (04/18/2020 12:21 PM CDT) Only the most recent of4 resultswithin the time period is included. pH Arterial 7.39 7.35 - 7.45 pH 04/18/2020 12:30 PM CDT [facility] RESP THERAPY pCO2 Arterial 34(L) 35 - 45 mm hg 04/18/2020 12:30 PM CDT [facility] RESP THERAPY Comment:L pO2 Arterial 108(H) 80 - 100 mm hg 04/18/2020 12:30 PM CDT [facility] RESP THERAPY Comment:H HCO3 Arterial 20(L) 22 - 26 mmol/L 04/18/2020 12:30 PM CDT [facility] RESP THERAPY Comment:L BE Arterial -4.3(L) -2.0 - 2.0 mmol/L 04/18/2020 12:30 PM CDT [facility] RESP THERAPY Comment:L O2 Saturation Arterial 98 90 - 100 % 04/18/2020 12:30 PM CDT [facility] RESP THERAPY Hemoglobin Arterial 8.4(L) 14.0 - 16.0 gm/dL 04/18/2020 12:30 PM CDT [facility] RESP THERAPY Carboxyhemoglobin Arterial 0.3 0.0 - 2.5 % 04/18/2020 12:30 PM CDT [facility] RESP THERAPY Methemoglobin Arterial 1.2 0.0 - 2.0 % 04/18/2020 12:30 PM CDT [facility] RESP THERAPY Oxyhemoglobin Arterial 96 % 04/18/2020 12:30 PM CDT [facility] RESP THERAPY Mode CMV 04/18/2020 12:30 PM CDT [facility] RESP THERAPY Aamir's Test N/A 04/18/2020 12:30 PM CDT [facility] RESP THERAPY FI O2 30 % 04/18/2020 12:30 PM CDT [facility] RESP THERAPY Tidal Volume 450 mL 04/18/2020 12:30 PM CDT [facility] RESP THERAPY PEEP (cmH2O) 8.0 04/18/2020 12:30 PM CDT [facility] RESP THERAPY Respiratory Rate 20.0 04/18/20 20 12:30 PM CDT [facility] RESP THERAPY Sample Site Art Line 04/18/2020 12:30 PM CDT [facility] RESP THERAPY Sample Type Arterial 04/18/2020 12:30 PM CDT [facility] RESP THERAPY Can Top Setter ID [id number] 04/18/2020 12:30 PM CDT [facility] RESP THERAPY Blood, arterial ARTERIAL BLOOD SPECIMEN / Unknown 04/18/2020 12:21 PM CDT 04/18/2020 12:21 PM CDT Clem Brown MD LAB - BLOOD GASES OR DERABLES Performing Organization Address City/State/[facility] Co de Phone Number [facility] RESP THERAPY [address] [place] [address] * TRANSFUSE RED BLOOD CELL LEUKOREDUCED UNIT(S) (04/18/2020 11:52 AM CDT) Mayuri Norton MD NURSING - BLOOD PROD TRANSFUSION * TRANSFUSE FRESH FROZEN PLASMA UNIT(S) (04/18/2020 10:32 AM CDT) Afsaneh Sandoval MD NURSING - BLOOD PROD TRANSFUSION * TRANSFUSE PLATELET PHERESIS UNIT(S) (04/18/2020 10:32 AM CDT) Afsaneh Sandoval MD NURSING - BLOOD PROD TRANSFUSION * TRANSFUSE PLATELET PHERESIS UNIT(S) (04/18/2020 10:31 AM CDT) Afsaneh Sandoval MD NURSING - BLOOD PROD TRANSFUSION * TRANSFUSE PLATELET PHERESIS UNIT(S) (04/18/2020 10:31 AM CDT) Mayuri Norton MD NURSING - BLOOD PROD TRANSFUSION * TRANSFUSE PLATELET PHERESIS UNIT(S) (04/18/2020 10:31 AM CDT) Mayuri Norton MD NURSING - BLOOD PROD TRANSFUSION * (ABNORMAL) RETIC COUNT (04/18/2020 9:30 AM CDT) Only the most recent of2 resultswithin the time period is included. Reticulocyte Count 1.77(H) 0.5 - 1.7 % 04/18/2020 9:52 AM CDT [facility] Reticulocyte Absolute 0.0384 0.0041 - 0.0971 x10E6/uL 04/18/2020 9:52 AM CDT [facility] Reticulocyte Immature Fractionated 36.6(H) 0.9 - 14.3 % 04/18/2020 9:52 AM CDT [facility] Hemoglobin Retic 30.2 27.8 - 36.8 pg 04/18/2020 9:52 AM CDT [facility] Blood BLOOD SPECIMEN / Unknown Venipuncture / Unknown 04/18/2020 9:30 AM CDT 04/18/2020 9:42 AM CDT Heraclio Dave MD LAB - HEMATOLOGY ORD ERABLES [facility] [address] [place] [address] * VITAMIN B12 (04/18/2020 9:30 AM CDT) Only the most recent of2 resultswithin the time period is included. Vitamin B12 220 213 - 816 pg/mL 04/18/2020 10:43 AM CDT [facility] Blood BLOOD SPECIMEN / Unknown Venipuncture / Unknown 04/18/2020 9:30 AM CDT 04/18/2020 9:42 AM CDT Heraclio Dave MD LAB - CHEMISTRY MIRI GO Performing Organization Address City/[facility]/ZIP Co de Phone Number [facility] [address] [place] [address] * IMMUNOGLOBULINS IGG/IGM/IGA PANEL (04/18/2020 9:30 AM CDT) Pathologist [facility] IgA 82 65 - 421 mg/dL 04/18/2020 3:33 PM CDT [facility] IgG 1,629 552-1,631 mg/dL 04/18/2020 3:33 PM CDT [facility] IgM 149 33 - 293 mg/dL 04/18/2020 3:33 PM CDT [facility] Blood BLOOD SPECIMEN / Unknown Venipuncture / Unknown 04/18/2020 9:30 AM CDT 04/18/2020 9:42 AM CDT Heraclio Dave MD LAB - CHEMISTRY MIRI GO Performing Organization Address [facility] Co de Phone Number [facility] [address] [place] [address] * (ABNORMAL) [id number] ANTIBODY (04/18/2020 9:29 AM CDT) [facility] [id number] Antibody 15(H) <12 Units/mL 04/22/2020 5:07 PM CDT [facility] ([facility]) Comment: Results for this test are for research purposes only by the assay's railroad design consultant. ??The performance characteristics of this product have not been established. ??Results should not be used as a diagnostic procedure without confirmation of the diagnosis by another medically established diagnostic product or procedure. Blood BLOOD SPECIMEN / Unknown Venipuncture / Unknown 04/18/2020 9:29 AM CDT 04/18/2020 9:42 AM CDT Narrative [facility] ([facility]) - 04/22/2020 5:07 PM CDT Performed at: ??01 - [facility] ??[id number] Nut Dehydrator Operator: Kiran Guerra MD, Phone: ??[phone] Heraclio Dave MD LAB - COAGULATION OR DERABLES Performing Organization Address City/[facility]/ZIP Co de Phone Number [facility] ([facility]) [address] [place] [address] * REF LAB COMMENT (04/18/2020 9:29 AM CDT) Comment Comment 04/20/2020 7:06 PM CDT [facility] ([facility]) Comment: Severe deficiency of CLSZTI26 (less than 10% activity) is a relatively specific finding in patients with a clinical diagnosis of either hereditary or acquired thrombotic thrombocytopenic purpura (TTP). Normal to moderately reduced QRHRAH71 activity results do not exclude a diagnosis of TTP. Conditions that could have FEHMLG69 activity greater than 10% include hemolytic uremic syndrome (HUS), atypical hemolytic uremic syndrome (aHUS), and other thrombotic microangiopathies associated with hematopoietic stem cell and solid organ transplantation, liver disease, DIC, sepsis, , or effects of certain medications (eg, clopidogrel, cyclosporine, mitomycin C, quinine). Blood BLOOD SPECIMEN / Unknown Venipuncture / Unknown 04/18/2020 9:29 AM CDT 04/18/2020 9:42 AM CDT Narrative [facility] ([facility]) - 04/20/2020 7:06 PM CDT Performed at: ??01 - [address] ??[id number] Nut Dehydrator Operator: Kiran Guerra MD, Phone: ??[phone] Heraclio Dave MD LAB - CHEMISTRY ORDE RABLES Performing Organization Address City/[facility]/ZIP Co de Phone Number [facility]) [address] [place] [address] * (ABNORMAL) [id number] ACTIVITY (04/18/2020 9:29 AM CDT) [id number] Activity 41.7(L) >66.8 % 04/20/2020 7:06 PM CDT [facility] ([facility]) Blood BLOOD SPECIMEN / Unknown Venipuncture / Unknown 04/18/2020 9:29 AM CDT 04/18/2020 9:42 AM CDT Narrative [facility] ([facility]) - 04/20/2020 7:06 PM CDT Test(s) [id number] Activity was developed and its performance characteristics determined by [facility]. It has not been cleared or approved by the Food and Drug Administration. Performed at: ??01 - [facility] [address] ??[id number] Nut Dehydrator Operator: Kiran uGerra MD, Phone: ??[phone] Heraclio Dave MD LAB - COAGULATION OR DERABLES [facility] ([facility]) [address] [place] [address] * BESSY DIRECT (04/18/2020 9:29 AM CDT) Direct Bessy (LANDY) NEG 04/18/2020 10:25 AM CDT [facility] BLOOD BANK LAB Blood Bank BLOOD SPECIMEN / Unknown Venipuncture / Unknown 04/18/2020 9:29 AM CDT 04/18/2020 9:43 AM CDT Heraclio Dave MD LAB - BLOOD BANK ORD ERABLES Performing Organization Address [facility] Co de Phone Number [facility] BLOOD BANK LAB [address] [place] [address] * FIBRINOGEN ACTIVITY (04/18/2020 9:29 AM CDT) Only the most recent of6 resultswithin the time period is included. Fibrinogen 217 200 - 400 mg/dL 04/18/2020 9:59 AM CDT [facility] Blood BLOOD SPECIMEN / Unknown Venipuncture / Unknown 04/18/2020 9:29 AM CDT 04/18/2020 9:42 AM CDT Annabella Johnson MD LAB - COAGULATION OR DERABLES Performing Organization Address City/[facility]/ZIP Co de Phone Number [facility] [address] [place] [address] * PATHOLOGY PERIPHERAL SMEAR REVIEW (04/18/2020 8:31 AM CDT) Only the most recent of2 resultswithin the time period is included. Case Report Pathology Interpretation Report ? Case: [id number] ? Authorizing Provider: ??Heraclio Dave MD ? Collected: ? 04/18/2020 08:31 AM ? Ordering Location: ? [facility] 4 ICU MEDICAL ? Received: ?04/18/2020 08:31 AM ? Pathologist: ? Kathleen Clay, ? MD ? Specimen: ?Blood ? 04/18/2020 2:22 PM CDT [facility] Final Diagnosis Final diagnosis: - Leukocytosis with left-shift - Normocytic, normochromic anemia - Severe thrombocytopenia A comparison with a previous slide was requested ([id number]). Review of the morphologic and differential count of the peripheral smear confirms the CBC data. As compared to the previous slide, the smear shows a more prominent reactive leukocytosis with a left-shift including bands and myelocytes. No circulating blasts are seen. The lymphocytes are mostly small and mature; however large atypical forms are also identified. The remaining leukocytes are unremarkable. The red blood cells show a normocytic, normochromic anemia with anisopoikilocytosis including elliptocytes, dacrocytes and rare schistocytes. Additionally,a more prominent polychromatophilia is noted as well as nucleated red blood cells . The platelets are significantly decreased in number. No platelet clumping is noted. 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 Alex), vitamin B12 deficiency. The patient does not have any laboratory evidence of hemolysis; therefore, a TMA is not included in the differential. Clinical correlation is advised. 04/18/2020 2:22 PM CDT [facility] Blood BLOOD SPECIMEN / Unknown 04/18/2020 8:31 AM CDT 04/18/2020 8:31 AM CDT Heraclio Dave MD LAB - PATHOLOGY/CYTO LOGY ORDERABLES Performing Organization Address City/State/[facility] Co de Phone Number [facility] [address] [place], [place] [phone] * XR CHEST 1VW PORTABLE (04/18/2020 8:15 AM CDT) Anatomical Region Laterality Modality Chest Radiographic Alyssa ging 04/18/2020 8:55 AM CDT Narrative 04/18/2020 9:04 AM CDT EXAM: AP radiograph of the chest. History: Other specified health status. FINDINGS/IMPRESSION: The tip of the endotracheal tube may terminate at the cusp of the right main bronchus, recommend retraction. An enteric tube is followed to the mid esophagus, recommend repositioning. No focal consolidation or pleural effusion is identified. The cardiac silhouette and mediastinal contours appear normal. Findings were conveyed to the patient's nurse Nika at 8:58 AM on 04/18/2020. Edited by Estella Laboy on 04/18/2020 9:00 AM *Reading Radiologist: Jim Hdz on 04/18/2020 at 9:04 AM Procedure Note Jim Hdz MD - 04/18/2020 EXAM: AP radiograph of the chest. History: Other specified health status. FINDINGS/IMPRESSION: The tip of the endotracheal tube may terminate at the cusp of the right main bronchus, recommend retraction. An enteric tube is followed to the mid esophagus, recommend repositioning. No focal consolidation or pleural effusion is identified. The cardiac silhouette and mediastinal contours appear normal. Findings were conveyed to the patient's nurse Nika at 8:58 AM on 04/18/2020. Edited by Estella Laboy on 04/18/2020 9:00 AM *Reading Radiologist: Jim Hdz on 04/18/2020 at 9:04 AM Maikel Ring MD DIAGNOSTIC IMAGIN G ORDERABLES * (ABNORMAL) COAGULATION PANEL W D-DIMER (04/18/2020 7:53 AM CDT) Only the most recent of3 resultswithin the time period is included. PT 13.8 12.1 - 14.8 sec 04/18/2020 8:29 AM CDT [facility] INR 1.1 0.9 - 1.1 04/18/2020 8:29 AM CDT [facility] PTT 27.5 23.0 - 38.4 sec 04/18/2020 8:29 AM CDT [facility] Fibrinogen 278 200 - 400 mg/dL 04/18/2020 8:29 AM CDT [facility] D-Dimer 3.18(H) 0.27 - 0.50 ug/mL FEU 04/18/2020 8:29 AM CDT [facility] Platelet Count 51(L) 153 - 416 x10E9/L 04/18/2020 8:29 AM CDT [facility] Blood BLOOD SPECIMEN / Unknown Venipuncture / Unknown 04/18/2020 7:53 AM CDT 04/18/2020 8:09 AM CDT [facility] - 04/18/2020 8:29 AM CDT Conventional Warfarin Anticoagulant Therapy INR Reference Range: ??2.0-3.0 Intensive Warfarin Anticoagulant Therapy INR Reference Range: ? 2.5-3.5 Heparin Therapeutic Range for PTT: ??71.0 - 109.0 seconds. In the absence of clinical symptoms, a value less than or equal to 0.5 mcg/mL FEU significantly decreases the probability of PE/DVT (negative predictive value >95%). 1 mcg/ml FEU = 1 Fibrinogen Equivalent Unit (approximates 0.5 mcg/mL of D- dimer). ?ISTH DIAGNOSTIC SCORING SYSTEM FOR DIC ---- Score ?0 ? 1 ? 2 ? 3 ?? Platelet Count (x10^3/uL) ?> 100 ? <100 ? < 50 ?N/A PT Prolongation above ? Upper limit of normal ?0-3 ? 3-6 ? > 6 ?N/A Range (seconds) ? Fibrinogen (mg/dL) ? >100 ?< 100 ? N/A ?N/A ?? D-Dimer (mcg/mL FEU) ?< .50 ? N/A ?0.50-5.0 ?> 5 ?? Calculate Cumulative Score: > or = 5: compatible with overt DIC ? < 5: suggestive for non-overt DIC N/A = Non applicable Reference: Br. J. Haematol. ??145:24-33,2009. Clem Brown MD LAB - COAGULATION OR DERABLES [facility] [address] [place], [place] [id number] * (ABNORMAL) SLIDE SCAN HEMATOLOGY (04/18/2020 5:37 AM CDT) Only the most recent of3 resultswithin the time period is included. [facility] Platelet Estimation Decrease d(A) Normal, Adequate platelets 04/18/2020 7:07 AM CDT [facility] Anisocytosis 1+(A) None 04/18/2020 7:07 AM CDT [facility] Poikilocytosis 1+(A) None 04/18/2020 7:07 AM CDT [facility] Polychromasia Occasion al(A) None 04/18/2020 7:07 AM CDT [facility] [place] Cells 1+(A) None 04/18/2020 7:07 AM CDT [facility] Blood BLOOD SPECIMEN / Unknown Venipuncture / Unknown 04/18/2020 5:37 AM CDT 04/18/2020 5:45 AM CDT Maikel Ring MD LAB - HEMATOLOGY ORDERABLES [facility] [address] [place] [address] * (ABNORMAL) TRIGLYCERIDES BLOOD (04/18/2020 5:37 AM CDT) [facility] Triglycerides 160(H) <150 mg/dL 04/18/2020 8:16 AM CDT [facility] Blood BLOOD SPECIMEN / Unknown Venipuncture / Unknown 04/18/2020 5:37 AM CDT 04/18/2020 5:45 AM CDT Snehal Crowe MD LAB - CHEM ISTRY ORDERABLES [facility] [address] [place] [address] * HEMOGLOBIN A1C (04/18/2020 4:13 AM CDT) [facility] Hemoglobin A1c 5.2 4.2 - 5.6 % 04/18/2020 6:37 AM CDT [facility] Estimated Average Glucose 103 mg/dL 04/18/2020 6:37 AM CDT [facility] Blood BLOOD SPECIMEN / Unknown Venipuncture / Unknown 04/18/2020 4:13 AM CDT 04/18/2020 4:16 AM CDT Narrative [facility] - 04/18/2020 6:37 AM CDT The following cutoff levels are recommended by [place] [employer]. ?? A1c ??> 6.5% : considered as diabetes if two separate tests >6.5% or in an appropriate clinical setting. A1c ??5.7% - 6.4% : considered as prediabetes (suggest increased risk for diabetes and cardiovascular disease) Control target level: ??Should be individualized. ??< 7 ??for general (non- ) , ??< 8% less stringent goal, ??< 6.5 ??more stringent goal. Hemoglobin A1c measurements are used as an aid in the diagnosis of diabetic mellitus, as an aid to identify patients who may be at the risk for developing diabetic mellitus, and for the monitoring long-term blood glucose control in individuals with diabetes mellitus. ??This test should not replace glucose testing for patients with Type 1 diabetes, pediatric patients, or women. ??Falsely low HbA1c results may be observed in patients with clinical conditions that shorten erythrocyte life span or decrease mean erythrocyte age such as the presence of unstable hemoglobin variants, elevated hemoglobin F level ??or other causes of hemolytic anemia . ??HbA1c may not accurately reflect glycemic control when clinical conditions that affect erythrocyte survival are present. ??Severe Iron deficiency anemia may yield falsely high results. ??Hemoglobin A1c assay should not be used to diagnose or monitor diabetes in patients with malignancy, recent blood transfusion, chronic kidney or liver disease. ?? This method may yield falsely low results when hemoglobin (HbF) exceeds 5% in the specimen. Maikel Ring MD LAB - CHEMISTRY O RDERABLES [facility] [address] [place] [address] * (ABNORMAL) BLOOD GASES CORD JEREMY (04/18/2020 3:12 AM CDT) Only the most recent of2 resultswithin the time period is included. pH Cord Venous 6.98(LL) 7.28 - 7.40 pH 04/18/2020 3:26 AM CDT [facility] Comment:LL pCO2 Cord Venous 75(HH) 35 - 45 mm hg 04/18/2020 3:26 AM CDT [facility] Comment:HH pO2 Cord Venous 18(L) 22 - 33 mm hg 04/18/2020 3:26 AM CDT [facility] Comment:L HCO3 Cord Venous 17(L) 22 - 24 mmol/L 04/18/2020 3:26 AM CDT [facility] RESP THERAPY Comment:L BE Cord Venous -15.6 mmol/L 04/18/2020 3:26 AM CDT [facility] RESP THERAPY O2 Saturation Cord Venous 26 % 04/18/2020 3:26 AM CDT [facility] RESP THERAPY Aamir's Test N/A 04/18/2020 3:26 AM CDT [facility] RESP THERAPY Sample Site Other 04/18/2020 3:26 AM CDT [facility] RESP THERAPY Sample Type Cord Blood Venous 04/18/2020 3:26 AM CDT [facility] RESP THERAPY Can Top Setter ID [id number] 04/18/2020 3:26 AM CDT [facility] RESP THERAPY Notified Who jerrod patient biller 04/18/2020 3:26 AM CDT [facility] RESP THERAPY Notification Time 04/18/2020 03:26 04/18/2020 3:26 AM CDT [facility] RESP THERAPY Notified By octavia morrissey 04/18/2020 3:26 AM CDT [facility] RESP THERAPY Blood CORD BLOOD SPECIMEN / Unknown 04/18/2020 3:12 AM CDT 04/18/2020 3:12 AM CDT Afsaneh Sandoval MD LAB - BLOOD GASES OR DERABLES [facility] RESP THERAPY [address] [phone] * (ABNORMAL) BLOOD GASES CORD ARTERIAL (04/18/2020 3:12 AM CDT) Only the most recent of2 resultswithin the time period is included. pH Cord Arterial 6.92(LL) 7.20 - 7.34 pH 04/18/2020 3:27 AM CDT [facility] RESP THERAP[facility] Comment:LL pCO2 Cord Arterial 89(HH) 45 - 55 mm hg 04/18/2020 3:27 AM CDT [facility] RESP THERAPY Comment:HH pO2 Cord Arterial 04/18/2020 3:27 AM CDT [facility] RESP THERAP[facility] Comment:< HCO3 Cord Arterial 18.0(L) 22.0 - 24.0 mmol/L 04/18/2020 3:27 AM CDT [facility] Comment:L BE Cord Arterial -16.3 mmol/L 04/18/20 20 3:27 AM CDT [facility] O2 Saturation Cord Arterial 04/18/2020 3:27 AM CDT [facility] RESP THERAPY Comment:< Aamir's Test N/A 04/18/2020 3:27 AM CDT [facility] RESP THERAPY Sample Site Other 04/18/2020 3:27 AM CDT [facility] RESP THERAPY Sample Type Cord blood Arterial 04/18/2020 3:27 AM CDT [facility] RESP THERAPY Can Top Setter ID [id number] 04/18/2020 3:27 AM CDT [facility] RESP THERAPY Notified Renea elder patient biller 04/18/2020 3:27 AM CDT [facility] RESP THERAPY Notification Time 04/18/2020 03:27 04/18/2020 3:27 AM CDT [facility] RESP THERAPY Notified By octavia morrissey 04/18/2020 3:27 AM CDT [facility] RESP THERAPY Blood, arterial CORD BLOOD SPECIMEN / Unknown 04/18/2020 3:12 AM CDT 04/18/2020 3:12 AM CDT Afsaneh Sandoval MD LAB - BLOOD GASES OR DERABLES Performing Organization Address City/State/[facility] Co de Phone Number [facility] RESP THERAPY [address] [phone] * ETT LINE PERFORMABLE (04/18/2020 3:04 AM CDT) Narrative Ying Ro APRN-[employer] FLOORPERSON - 04/18/2020 3:04 AM CDT Ying Ro APRN-CRNA ? 04/18/2020 ??3:04 AM Endotracheal Tube Placement: ? Patient Location: OB. Intubation Event Date/Time: ??04/18/2020 2:51 AM Procedure: intubation ([id number]). Procedure Section: ?? Sedation: under general anesthesia. Indications for Airway Management: ??anesthesia Procedure pretreatments used? ??No Induction: rapid sequence and cricoid pressure Patient Position: ??sniffing Mask Ventilation: not attempted. Blade Type: Supa Blade Size: 4 Laryngoscopy View: grade 1 (full cords) Intubation Adjuncts: cricoid pressure and stylet Tube: endotracheal tube Placement: oral Tube type: cuff - inflated Tube Size (MM): 7 Depth of Insertion (CM): 21 Measured From: lips Cuff volume (mL): ??6 Cuff Inflated With: air Number of Attempts: 1. Placement Verified By: direct visualization, bilateral breath sounds, chest auscultation and CO2 monitor Tube secured with: ??adhesive tape. Dentition unchanged? ??Yes Difficult Airway? ??No. Procedure Start Time: 04/18/2020 2:51 AM. Staff Section ?? Anesthesia Provider: Ying Ro APRN-KEVAN, Performed the procedure Provider #1: Chris Solorio MD. Chris Solorio MD GENERAL ANESTHESIA ORDERABLES * SYPHILIS ANTIBODY CASCADING REFLEX (04/17/2020 8:57 PM CDT) Treponema pallidum Antibody Non Reactive Non Reactive 04/17/2020 10:02 PM CDT [facility] Comment: No Laboratory evidence of syphilis infection. ?? Note: ??Circulating antibodies may be low or undetectable in early infection. ??If recent exposure is suspected, re-draw sample in 2-4 weeks and repeat testing. Blood BLOOD SPECIMEN / Unknown Venipuncture / Unknown 04/17/2020 8:57 PM CDT 04/17/2020 9:09 PM CDT Mayuri Norton MD LAB - SEROLOGY ORDER CRUZITO [facility] [address] [place] [address] * HIV-1 HIV-2 ANTIBODY + HIV P24 AG PANEL (04/17/2020 8:57 PM CDT) Only the most recent of2 resultswithin the time period is included. HIV1/2 Ab + P24 Ag Non Reactive Non Reactive 04/17/2020 10:02 PM CDT [facility] Blood BLOOD SPECIMEN / Unknown Venipuncture / Unknown 04/17/2020 8:57 PM CDT 04/17/2020 9:09 PM CDT Narrative [facility] - 04/17/2020 10:02 PM CDT No Laboratory evidence of HIV infection. Mayuri Norton MD LAB - CHEMISTRY MIRI GO [facility] [address] [place], [place] [id number] * (ABNORMAL) URINALYSIS REFLEX TO MICROSCOPIC NO CULTURE (04/17/2020 8:57 PM CDT) Color UA Yellow Straw, Yellow 04/17/2020 9:18 PM CDT [facility] Clarity UA Slt Cloudy(A) Clear 04/17/2020 9:18 PM CDT [facility] Glucose UA Negative Negative 04/17/2020 9:18 PM CDT [facility] Bilirubin UA Negative Negative 04/17/2020 9:18 PM CDT [facility] Ketone UA Negative Negative 04/17/2020 9:18 PM CDT [facility] Specific [place] UA 1.015 1.005 - 1.030 04/17/2020 9:18 PM CDT [facility] Blood UA 3+(A) Negative 04/17/2020 9:18 PM CDT [facility] pH UA 6.0 5.0 - 8.0 pH 04/17/2020 9:18 PM CDT [facility] [facility] Protein UA 1+(A) Negative 04/17/2020 9:18 PM CDT [facility] Urobilinogen UA Negative Negative mg/dL 04/17/2020 9:18 PM CDT [facility] Nitrite UA Negative Negative 04/17/2020 9:18 PM CDT [facility] Leukocyte UA Negative Negative 04/17/2020 9:18 PM CDT [facility] Urine Microscopy Urine microscopy to follow 04/17/2020 9:18 PM CDT [facility] Urine URINE SPECIMEN OBTAINED BY CLEAN CATCH PROCEDURE / Unknown Collection / Unknown 04/17/2020 8:57 PM CDT 04/17/2020 9:08 PM CDT Narrative [facility] - 04/17/2020 9:18 PM CDT Annabella Johnson MD LAB - URINALYSIS ORD ERABLES Performing Organization Address [facility]/ZIP Co de Phone Number [facility] [address] [phone] * (ABNORMAL) URINE MICROSCOPIC ONLY (04/17/2020 8:57 PM CDT) RBC UA >100(A) None Seen, 0-2, 3-5 # /hpf 04/17/2020 9:47 PM CDT [facility] WBC UA 6-10(A) None Seen, 0-5 # /hpf 04/17/2020 9:47 PM CDT [facility] Bacteria UA None Seen None Seen 04/17/2020 9:47 PM CDT [facility] Squamous Epithelial Cells 6-10(A) None Seen, 0-2, 3-5 /hpf 04/17/2020 9:47 PM CDT [facility] Urine URINE SPECIMEN OBTAINED BY CLEAN CATCH PROCEDURE / Unknown Collection / Unknown 04/17/2020 8:57 PM CDT 04/17/2020 9:08 PM CDT Narrative [facility] - 04/17/2020 9:47 PM CDT Annabella Johnson MD LAB - URINALYSIS ORD ERABLES Performing Organization Address [facility] Co de Phone Number [facility] [address] [place] [address] * (ABNORMAL) RUBELLA ANTIBODY IGG (04/17/2020 8:57 PM CDT) Only the most recent of2 resultswithin the time period is included. Rubella Antibody <0.90(L) Immune >0.99 index 04/19/2020 7:09 AM CDT [facility] ([facility]) Comment: ?Non-immune ? <0.90 ?Equivocal ??0.90 - 0.99 ?Immune ? >0.99 Blood BLOOD SPECIMEN / Unknown Venipuncture / Unknown 04/17/2020 8:57 PM CDT 04/17/2020 9:09 PM CDT Narrative [facility] ([facility]) - 04/19/2020 7:09 AM CDT Performed at: ??01 - [facility] [address], [place], [place] ??[id number] Nut Dehydrator Operator: Tyrone Rider PhD, Phone: ??[phone] Mayuri Norton MD LAB - SEROLOGY ORDER [facility] ([facility]) [address] [place] [address] * (ABNORMAL) CULTURE URINE (04/17/2020 8:57 PM CDT) Only the most recent of2 resultswithin the time period is included. Culture Urine 50,000-100,000 CFU/mL Escherichia coli(A) BERT 04/19/2020 10:33 AM CDT [facility]CRO[facility] Culture Urine 50,000-100,000 CFU/mL Streptococcus agalactiae (Group B)(A) 04/19/2020 10:33 AM CDT [facility]CRO[facility] Culture Urine 50,000-100,000 CFU/mL urogenital aneudy BERT 04/19/2020 10:33 AM CDT [facility]CRO[facility] Urine URINE SPECIMEN OBTAINED BY CLEAN CATCH PROCEDURE / Unknown Collection / Unknown 04/17/2020 8:57 PM CDT 04/17/2020 9:08 PM CDT Narrative [facility] MICROBI[facility] - 04/19/2020 10:33 AM CDT Susceptibility testing of penicillin, other beta-lactam antibiotics, and vancomycin is not necessary for beta-hemolytic streptococci groups A,B,C and G because resistant strains have not been recognized. Organism Antibiotic Method Susceptibility Escherichia coli Amikacin BERT <=2 ug/mL: Susceptible Escherichia coli Ampicillin BERT <=2 ug/mL: Susceptible Escherichia coli Ampicillin-sulbactam BERT <=2 ug/mL: Susceptible Escherichia coli Cefazolin BERT <=4 ug/mL: Susceptible Escherichia coli Cefepime BERT <=1 ug/mL: Susceptible Escherichia coli Ceftriaxone BERT <=1 ug/mL: Susceptible Escherichia coli Ciprofloxacin BERT <=0.25 ug/mL: Susceptible Escherichia coli Extended-Spectrum Beta-Lactamase BERT NEG ug/mL: Neg Escherichia coli Gentamicin BERT <=1 ug/mL: Susceptible Escherichia coli Meropenem BERT <=0.25 ug/mL: Susceptible Escherichia coli Nitrofurantoin BERT <=16 ug/mL: Susceptible Escherichia coli Piperacillin-tazobactam BERT <=4 ug/mL: Susceptible Escherichia coli Tobramycin BERT <=1 ug/mL: Susceptible Escherichia coli Trimethoprim-sulfame thoxaz ole BERT <=20 ug/mL: Susceptible Comment: Interpretive criteria are for cefazolin when cefazolin is used for therapy of uncomplicated UTI due to E. coli, K. pneumoniae, and P. mirabilis. May also be used to predict results for the oral agents cefaclor, cefdinir, cefpodoxime, cefprozil, cefuroxime, cephalexin, and lorcarbef when used to treat uncomplicated UTI due to E. coli, K. pneumoniae, and P. mirabilis. Annabella Johnson MD LAB - MICROBIOLOGY O RDERABLES [facility] MICROBIOLOGY [address] [phone] * (ABNORMAL) DRUG SCREEN TOX URINE PANEL (04/17/2020 8:57 PM CDT) Only the most recent of3 resultswithin the time period is included. [facility] Amphetamines Screen Urine Detected(A) Not detected 04/17/2020 9:38 PM CDT [facility] Barbiturates Screen Urine Not detected Not detected 04/17/2020 9:38 PM CDT [facility] Benzodiazepines Screen Urine Not detected Not detected 04/17/2020 9:38 PM CDT [facility] Cannabinoids Screen Urine Not detected Not detected 04/17/2020 9:38 PM CDT [facility] Cocaine Screen Urine Not detected Not detected 04/17/2020 9:38 PM CDT [facility] Fentanyl Urine Not detected Not detected 04/17/2020 9:38 PM CDT [facility] Methadone Screen Urine Not detected Not detected 04/17/2020 9:38 PM CDT [facility] Opiate Screen Urine Not detected Not detected 04/17/2020 9:38 PM CDT [facility] Phencyclidine Screen Urine Not detected Not detected 04/17/2020 9:38 PM CDT [facility] Urine URINE / Unknown Collection / Unknown 04/17/2020 8:57 PM CDT 04/17/2020 9:08 PM CDT Narrative [facility] - 04/17/2020 9:38 PM CDT This drug screen is designed for MEDICAL purposes only. It is not to be used for legal purposes, including but not limited to worker's comp, police investigations, occupational issues, child custody, etc. ??Any positive result is only presumptive and must be confirmed with a separate confirmatory test ordered by the physician. Drug Screening Test Cutoff Values: AMPHETAMINES ?1000 ng/mL BARBITURATES ? 200 ng/mL BENZODIAZEPINES ?200 ng/mL CANNABINOIDS(THC) ?? 50 ng/mL COCAINE ?300 ng/mL FENTANYL ? 1 ng/mL METHADONE ?300 ng/mL OPIATES ?300 ng/mL PHENCYCLIDINE(PCP) ??25 ng/mL Annabella Johnson MD LAB - URINE CHEMISTR Y ORDERABLES [facility] [address] [place] [address] * BLOOD TYPE VERIFICATION (04/17/2020 8:24 PM CDT) Only the most recent of2 resultswithin the time period is included. ABO Rh A POS 04/17/2020 8:4 7 PM CDT [facility] Blood Bank BLOOD SPECIMEN / Unknown Venipuncture / Unknown 04/17/2020 8:24 PM CDT 04/17/2020 8:24 PM CDT Phuong Frazier MD LAB - BLOOD BANK OR DERABLES Performing Organization Address City/[facility]/ZIP Co de Phone Number [facility] [address] [phone] * PREPARE (CROSSMATCH) RBC UNIT(S), 1 Units (04/17/2020 8:12 PM CDT) Only the most recent of7 resultswithin the time period is included. Unit Description AS1 LR PRBC [facility] Unit ABO A [facility] Unit Rh POS [facility] Product Number R02 [facility] Unit Donor # [id number] [facility] BLOOD BANK LAB Unit Status released [facility] OD [facility] LAB Product Code [id number] [facility]OD [facility] LAB Blood Type Barcode 6200 [facility] Expiration Date S [facility] LAB Unit Description AS1 LR PRBC [facility] Unit ABO A [facility] Unit Rh POS [facility] Product Number R02 [facility] Unit Donor # [id number] [facility] C BLOOD BANK LAB Unit Status transfused [facility] Product Code [id number] [facility] Blood Type Barcode 6200 [facility] Expiration Date [id number] [facility] LAB Blood Bank BLOOD SPECIMEN / Unknown 04/17/2020 8:12 PM CDT 04/17/2020 8:16 PM CDT Shayna Chirinos MD LAB - BLOOD BANK ORDERABLES [facility] [address] [place], [place] [id number] [place] [address] * PREPARE CRYOPRECIPITATE UNIT (S), 2 Units (04/17/2020 8:12 PM CDT) Unit Description Thawed Cryp Clsd [facility] Unit ABO A [facility] Unit Rh POS [facility] Product Number [id number] [facility] Unit Donor # [id number] [facility] BLOOD [facility] LAB Unit Status transfused [facility] Product Code [id number] [facility] Blood Type Barcode 6200 [facility] Expiration Date S [facility] Unit Description Thawed Cryp Clsd [facility] Unit ABO A [facility] Unit Rh POS [facility] Product Number [id number] [facility] Unit Donor # [id number] [facility] Unit Status transfused [facility] Product Code [id number] [facility] Blood Type Barcode 6200 [facility] Expiration Date S [facility] LAB Blood Bank BLOOD SPECIMEN / Unknown 04/17/2020 8:12 PM CDT 04/17/2020 8:16 PM CDT Phuong Frazier MD LAB - BLOOD BANK OR DERABLES [facility] [address] [place] [address] * PREPARE PLATELET PHERESIS UNIT(S), 2 Units (04/17/2020 8:12 PM CDT) Only the most recent of3 resultswithin the time period is included. Unit Description LR PLT Pher IRR [facility] Unit ABO AB [facility] Unit Rh POS [facility] Product Number P14 [facility] Unit Donor # [id number] [facility] Unit Status transfused [facility] Product Code [id number] [facility] Blood Type Barcode 8400 [facility] Expiration Date S [facility] Unit Description LR PLT Pheresis [facility] Unit ABO A [facility] Unit Rh POS [facility] Product Number P01 [facility] Unit Donor # [id number] [facility] Unit Status released [facility] OD [facility] Product Code [id number] [facility] Blood Type Barcode 6200 [facility] Expiration Date [facility] Unit Description LR PLT Pheresis [facility] B[facility] Unit ABO A [facility] Unit Rh POS [facility] Product Number P04 [facility] Unit Donor # [id number] [facility] C BLOOD BANK LAB Unit Status released [facility] BLO OD [facility]ANK LAB Product Code [id number] [facility] Blood Type Barcode 6200 [facility] LAB Expiration Date S [facility] LAB Blood Bank BLOOD SPECIMEN / Unknown 04/17/2020 8:12 PM CDT 04/17/2020 8:16 PM CDT Afsaneh Sandoval MD LAB - BLOOD BANK ORD ERABLES [facility] [address] [phone] * SONOGRAM - COMPLETE (01/23/2020 2:48 PM CDT) Only the most recent of2 resultswithin the time period is included. Anatomical Region Laterality Modality Other 01/23/2020 2:48 PM CDT Narrative 01/23/2020 4:21 PM CDT ? [facility] ? [facility] ?PHONE: ??FAX: FETUS A Pat. Name: ?HILLARY DO No: ?[id number] Study Date: ?? 01/23/2020 ??2:48pm , Age: ? 1990, 29 Pregnancies: ?? 4, Para 2, Ab 1 Height: ? 63 in Weight: ? 117 lb LMP: ?Unknown GA by Base: ?? 25w6d ?? FABIAN: 05/01/2020 GA by US: ? 25w2d ?? FABIAN: 05/05/2020 GA Selected: ??25w6d (From [facility]) FABIAN: ?05/01/2020 Referring MD: Edgard, , [facility] Customer Service Engineer: ??Cintia Messina, VISHNU, RVT CPT4: ? 15808 [phone] BMI: ?20.72 Hist/Ind: ? DC/DA Twins ? Anatomy Screen ?Tobacco Use ?Marijuana/Methamphetamine ?use in early MEASUREMENTS & AGE ? GROWTH EVALUATION Measurement ??GA ? Range ? Srce %for GA Ratios ----- ---- ------- BPD ??6.1 cm 24w5d (38i2i-75o9s) Hadl BPD 9% FL/BPD 0.75 (0.71 - 0.87) HC ??23.0 cm 25w0d (40m9e-82a7w) Hadl HC ??7% FL/AC ??0.21 (0.20 - 0.24) AC ??21.7 cm 26w1d (70l6b-38b0h) Hadl AC ??53% HC/AC ??1.06 (1.01 - 1.20) FL ?? 4.5 cm 25w0d (40g4q-95z6t) Hadl FL ??15% CI ? 0.74 (0.70 - 0.86) HL ?? 4.4 cm 26w1d (46x0c-67j7n) Dontae HL ??55% GA for sonogram 25w2d (81e6v-23g8g) ?? Weight Estimate: based on (BPD,HC,AC,FL) Avg ?Weight: 827 gm (706-947gm) Hadloc ? : 1lbs, 13oz ? Normal: 889 gm (667- 1111gm) Hadlo ? Wt% ? 30% for 25w6d Cervix: ??Length: 4.5 cm ??Approach: transvaginal ??Funneling: not present Heart Rate: 159 bpm Amniotic Fluid Index: 04.4cm (Deepest Pocket) EVAL, PLACENTA Presentation: breech MaternalSide: left Placenta: posterior Heart Rate: 159 bpm Amniotic Fluid Volume: normal Anatomy!Normal!Abnormal!Suboptimal!Prev. Seen!Comments Cranium ?! ?! ?! ?! ? x ?! Mdl (CSP/Thal! ?! ?! ?! ? x ?! Ventricles ?? ! ?! ?! ?! ? x ?! Choroid Plexu! ?! ?! ?! ? x ?! Cerebellum ?? ! ?! ?! ?! ? x ?! Cisterna M. ??! ?! ?! ?! ? x ?! Nuchal Fold ??! ?! ?! ?! ? x ?! Profile ?! ?? x ??! ?! ?! ?! Nasal Bone ?? ! ?? x ??! ?! ?! ?! Lip ?! ?? x ??! ?! ?! ?! Spine ?! ?! ?! ?! ? x ?! Lungs ?! ?? x ??! ?! ?! ?! 4 Chamber Hea! ?? x ??! ?! ?! ?! LVOT ? ! ?? x ??! ?! ?! ?! RVOT ? ! ?? x ??! ?! ?! ?! 3 Vessel View! ?! ?! ?! ? x ?! Cross-over ?? ! ?? x ??! ?! ?! ?! Ductal Arch ??! ?! ?! ?! ? x ?! Aortic Arch ??! ?! ?! ?! ? x ?! Caval View ?? ! ?! ?! ?! ? x ?! Situs ?! ?! ?! ?! ? x ?! Diaphragm ?! ?! ?! ?! ? x ?! Stomach ?! ?! ?! ?! ? x ?! Bowel ?! ?! ?! ?! ? x ?! Kidneys ?! ?! ?! ?! ? x ?! Bladder ?! ?! ?! ?! ? x ?! 3 Vessel Cord! ?! ?! ?! ? x ?! Cord In! ?! ?! ?! ? x ?! Upper Extremi! ?! ?! ?! ? x ?! Hands ?! ?? x ??! ?! ?! ?! Lower Extreme! ?! ?! ?! ? x ?! Feet ? ! ?? x ??! ?! ?! ?! External Mecac! ?! ?! ?! ?!Female Placental Cor! ?! ?! ?! ? x ?! CLINICAL SUMMARY Study Number: 2 ?? A DA/DC twin intrauterine is seen. ??The measurements today are consistent with what is expected for both twins. ??The FABIAN is based on prior ultrasound. ??The DVP appears normal for twin A, and normal for twin B. ??The twin peak was previously seen. ?? The anatomy was completed for twin A and completed for twin B. No major malformations were seen within the limitations of ultrasound. ?? IMPRESSION: Diamniotic Dichorionic Twins, live, intrauterine at 25w6d ?? size is normal for twin A and normal for twin B Amniotic fluid volume: Normal for twin A, normal for twin B RECOMMEND: Ultrasound in in 4 weeks for growth and to reassess placental location PELVIC REST for lowlying placenta. Please be advised that these recommendations are being made in the best interest of our patients during the COVID 19 Pandemic. Thank you for allowing us the opportunity to care for your patient. ?? Krzysztof Luu MD <Electronic Signature> ??01/23/2020 04:18pm FETUS B Pat. Name: ?HILLARY DO. No: ?[id number] Study Date: ?? 01/23/2020 ??2:48pm , Age: ? 1990, 29 Pregnancies: ?? 4, Para 2, Ab 1 Height: ? 63 in Weight: ? 117 lb LMP: ?Unknown GA by Base: ?? 25w6d ?? FABIAN: 05/01/2020 GA by US: ? 25w1d ?? FABIAN: 05/06/2020 GA Selected: ??25w6d (From [facility]) FABIAN: ?05/01/2020 Referring MD: Edgard, , [facility] Customer Service Engineer: ??Cintia Messina, VISHNU, RVT CPT4: ? 66630 [phone] Hist/Ind: ? DC/DA Twins ? Anatomy Screen ?Tobacco Use ?Marijuana/Methamphetamine ?use in early MEASUREMENTS & AGE ? GROWTH EVALUATION Measurement ??GA ? Range ? Srce %for GA Ratios ----- ---- ------- BPD ??5.9 cm 24w0d (28l5w-27i4p) Hadl BPD 2% FL/BPD 0.77 (0.71 - 0.87) HC ??22.4 cm 24w3d (44j0b-30o6s) Hadl HC ??2% FL/AC ??0.20 (0.20 - 0.24) AC ??22.7 cm 27w0d (68z0e-00t7g) Hadl AC ??78% HC/AC ??0.99 (1.01 - 1.20* FL ?? 4.5 cm 25w0d (93j7r-54e6n) Hadl FL ??15% CI ? 0.74 (0.70 - 0.86) HL ?? 4.2 cm 25w1d (47i5f-57f3b) Dontae HL ??38% GA for sonogram 25w1d (57h5g-83u8q) ?? Weight Estimate: based on (BPD,HC,AC,FL) Avg ?Weight: 866 gm (740-993gm) Hadloc ? : 1lbs, 14oz ? Normal: 889 gm (667- 1111gm) Hadlo ? Wt% ? 42% for 25w6d Cervix: ??Length: 4.5 cm ??Approach: transvaginal ??Funneling: not present Heart Rate: 157 bpm Amniotic Fluid Index: 04.5cm (Deepest Pocket) EVAL, PLACENTA Presentation: breech MaternalSide: right Placenta: anterior Previa: low-lying Tip to Internal Os: 1.8 cm Heart Rate: 157 bpm Amniotic Fluid Volume: normal Anatomy!Normal!Abnormal!Suboptimal!Prev. Seen!Comments Cranium ?! ?! ?! ?! ? x ?! Mdl (CSP/Thal! ?! ?! ?! ? x ?! Ventricles ?? ! ?! ?! ?! ? x ?! Choroid Plexu! ?! ?! ?! ? x ?! Cerebellum ?? ! ?! ?! ?! ? x ?! Cisterna M. ??! ?! ?! ?! ? x ?! Nuchal Fold ??! ?! ?! ?! ? x ?! Profile ?! ?? x ??! ?! ?! ?! Nasal Bone ?? ! ?? x ??! ?! ?! ?! Lip ?! ?? x ??! ?! ?! ?! Spine ?! ?! ?! ?! ? x ?! Lungs ?! ?? x ??! ?! ?! ?! 4 Chamber Hea! ?? x ??! ?! ?! ?! LVOT ? ! ?? x ??! ?! ?! ?! RVOT ? ! ?? x ??! ?! ?! ?! 3 Vessel View! ?! ?! ?! ? x ?! Cross-over ?? ! ?? x ??! ?! ?! ?! Ductal Arch ??! ?! ?! ?! ? x ?! Aortic Arch ??! ?! ?! ?! ? x ?! Caval View ?? ! ?! ?! ?! ? x ?! Situs ?! ?! ?! ?! ? x ?! Diaphragm ?! ?! ?! ?! ? x ?! Stomach ?! ?! ?! ?! ? x ?! Bowel ?! ?! ?! ?! ? x ?! Kidneys ?! ?! ?! ?! ? x ?! Bladder ?! ?! ?! ?! ? x ?! 3 Vessel Cord! ?! ?! ?! ? x ?! Cord In! ?! ?! ?! ? x ?! Upper Extremi! ?! ?! ?! ? x ?! Hands ?! ?? x ??! ?! ?! ?! Lower Extreme! ?! ?! ?! ? x ?! Feet ? ! ?? x ??! ?! ?! ?! External Mecca! ?! ?! ?! ?!Female Placental Cor! ?! ?! ?! ? x ?! Anatomy!Normal!Abnormal!Suboptimal!Prev. Seen!Comments Cranium ?! ?! ?! ?! ? x ?! Mdl (CSP/Thal! ?! ?! ?! ? x ?! Ventricles ?? ! ?! ?! ?! ? x ?! Choroid Plexu! ?! ?! ?! ? x ?! Cerebellum ?? ! ?! ?! ?! ? x ?! Cisterna M. ??! ?! ?! ?! ? x ?! Nuchal Fold ??! ?! ?! ?! ? x ?! Profile ?! ?! ?! ?! ? x ?! Nasal Bone ?? ! ?! ?! ?! ? x ?! Lip ?! ?! ?! ?! ? x ?! Spine ?! ?! ?! ?! ? x ?! Lungs ?! ?! ?! ?! ? x ?! 4 Chamber Hea! ?! ?! ?! ? x ?! LVOT ? ! ?! ?! ?! ? x ?! RVOT ? ! ?? x ??! ?! ?! ?! 3 Vessel View! ?! ?! ?! ? x ?! Cross-over ?? ! ?? x ??! ?! ?! ?! Ductal Arch ??! ?? x ??! ?! ?! ?! Aortic Arch ??! ?? x ??! ?! ?! ?! Caval View ?? ! ?! ?! ?! ? x ?! Situs ?! ?! ?! ?! ? x ?! Diaphragm ?! ?! ?! ?! ? x ?! Stomach ?! ?! ?! ?! ? x ?! Bowel ?! ?! ?! ?! ? x ?! Kidneys ?! ?! ?! ?! ? x ?! Bladder ?! ?! ?! ?! ? x ?! 3 Vessel Cord! ?! ?! ?! ? x ?! Cord In! ?! ?! ?! ? x ?! Upper Extremi! ?! ?! ?! ? x ?! Hands ?! ?? x ??! ?! ?! ?! Lower Extreme! ?! ?! ?! ? x ?! Feet ? ! ?! ?! ?! ? x ?! External Mecca! ?! ?! ?! ?!Male Placental Cor! ?! ?! ?! ? x ?! CLINICAL SUMMARY Krzysztof Luu MD <Electronic Signature> ??01/23/2020 04:18pm Walter Mota MD [facility] ORDERABLES * RPR W REFLEX TO TITER (MONITOR) (12/19/2019 3:22 PM CDT) [facility] RPR Monitor Nonreactive Nonreactive 12/20/2019 7:32 AM CDT [facility] Blood BLOOD SPECIMEN / Unknown Venipuncture / Unknown 12/19/2019 3:22 PM CDT 12/19/2019 3:40 PM CDT Phuong Quinones MD LAB - CHEMISTRY MIRI GO Performing Organization Address [facility]/State/ZIP Co de Phone Number [facility] [address] [place] [address] * IMAGING RADIOLOGY XRAY RESULTS ORDER (12/11/2019 6:48 PM CDT) Anatomical Region Laterality Modality Other Narrative 12/11/2019 6:48 PM CDT Ordered by an unspecified provider. Scanned Document IMAGING * TRANSFUSE RED BLOOD CELL LEUKOREDUCED UNIT(S) (12/09/2019 4:19 AM CDT) Chen Oneal MD NURSING - BLOOD PROD TRANSFUSION * TRANSFUSE RED BLOOD CELL LEUKOREDUCED UNIT(S) (12/09/2019 2:02 AM CDT) Chen Oneal MD NURSING - BLOOD PROD TRANSFUSION * LUPUS ANTICOAGULANT PANEL (12/08/2019 11:34 AM CDT) APTT 29.4 23.0 - 38.4 Seconds 12/11/2019 10:03 AM CDT [facility] PT 12.3 12.1 - 14.8 Seconds 12/11/2019 10:03 AM T [facility] INR 0.9 See Comment 12/11/2019 10:03 AM [facility] Buffer 41.1 Seconds 020 10:03 AM [facility] Phospholipid 38.7 Seconds 12/11/2019 10:03 AM [facility] Delta 2.4 <8.0 Seconds 12/11/2019 10:03 AM [facility] Interpretation [facility] Negative 12/11/2019 10:03 AM [facility] Comment:Up to 15-20% of jhony ents with lupus anticoagulant associated with antiphospholipid antibody syndrome (APAS) will have negative [facility] results. For these patients we recommend additional testing to include the Dilute Jeffrey Viper Venom Time (DRVVT) test. Immunoassay measurements of anti-cardiolipin and anti-beta-2 glycoprotein 1 are recommended if the DRVVT, and [facility] tests are negative and there is clinical suspicion of APAS. Blood BLOOD SPECIMEN / Unknown Lab Venipuncture / Unknown 12/08/2019 11:34 AM CDT 12/08/2019 12:32 PM CDT Christiano Pino MD LAB - HEMATOLOGY ORD ERABLES [facility] [address] [id number] [phone] * HEPATITIS C RNA QUANTITATIVE (12/08/2019 11:34 AM CDT) Only the most recent of2 resultswithin the time period is included. [facility] Hepatitis C Virus Quantitation [id number] IU/mL 12/19/2019 5:07 PM CDT [facility] ([facility]) Hepatitis C Virus Log 10 5.959 log10 IU/mL 12/19/2019 5:07 PM CDT [facility] ([facility]) Test Information Comment 12/19/19 5:07 PM CDT [facility] Comment:The quantitative ran ge of this assay is 15 IU/mL to 100 million IU/mL. Blood BLOOD SPECIMEN / Unknown Lab Venipuncture / Unknown 12/08/2019 11:34 AM CDT 12/08/2019 1:41 PM CDT Narrative [facility] ([facility]) - 12/19/2019 5:07 PM CDT Performed at: ??01 - [facility] [address] ??[id number] Nut Dehydrator Operator: Kiran Guerra MD, Phone: ??[phone] Christiano Pino MD LAB - CHEMISTRY MIRI GO [facility] ([facility]) [address] [place] [address] * (ABNORMAL) CARDIOLIPIN ANTIBODY IGG/IGM PANEL (12/08/2019 11:34 AM CDT) [facility] Cardiolipin Antibody IgG <9 0 - 14 GPL U/mL 12/11/2019 4:09 PM CDT [facility]) Comment: ?Negative: ?<15 ?Indeterminate: ? 15 - 20 ?Low-Med Positive: >20 - 80 ?High Positive: ? >80 Cardiolipin Antibody IgM 29(H) 0 - 12 MPL U/mL 12/11/2019 4:09 PM CDT [facility] ([facility]) Comment: ?Negative: ?<13 ?Indeterminate: ? 13 - 20 ?Low-Med Positive: >20 - 80 ?High Positive: ? >80 Blood BLOOD SPECIMEN / Unknown Lab Venipuncture / Unknown 12/08/2019 11:34 AM CDT 12/08/2019 12:32 PM CDT Narrative [facility] ([facility]) - 12/11/2019 4:09 PM CDT Performed at: ??01 - [facility] [address], [place] ??[id number] Nut Dehydrator Operator: Tyrone Rider PhD, Phone: ??[phone] Christiano Pino MD LAB - SEROLOGY ORDER CRUZTIO [facility] ([facility]) [address] [place] [address] * MARQUITA BLOOD SCREEN W/REFLEX TITER (12/08/2019 11:34 AM CDT) MARQUITA Negative Negative 12/10/2019 10:30 AM CDT [facility] Blood BLOOD SPECIMEN / Unknown Lab Venipuncture / Unknown 12/08/2019 11:34 AM CDT 12/08/2019 12:31 PM CDT Narrative [facility] - 12/10/2019 10:30 AM CDT Methodology: Indirect Immunofluorescence Assay (IFA) utilizing Hep-2-Gamma cells. Christiano Pino MD LAB - CHEMISTRY MIRI GO [facility] [address] [place] [address] * BETA-2 GLYCOPROTEIN 1 ANTIBODY IGG/IGM PANEL (12/08/2019 11:34 AM CDT) [facility] Beta-2 Glycoprotein I Antibody IgG <9 0 - 20 GPI IgG units 12/12/2019 3:35 AM CDT [facility] ([facility]) Comment: The reference interval reflects a 3SD or 99th percentile interval, which is thought to represent a potentially clinically significant result in accordance with the International Consensus Statement on the classification criteria for definitive antiphospholipid syndrome (APS). J Thromb Haem 2006;4:295-306. Beta-2 Glycoprotein I Antibody IgM 9 0 - 32 GPI IgM units 12/12/2019 3:35 AM CDT [facility] ([facility]) Comment: The reference interval reflects a 3SD or 99th percentile interval, which is thought to represent a potentially clinically significant result in accordance with the International Consensus Statement on the classification criteria for definitive antiphospholipid syndrome (APS). J Thromb Haem 2006;4:295-306. Blood BLOOD SPECIMEN / Unknown Lab Venipuncture / Unknown 12/08/2019 11:34 AM CDT 12/08/2019 12:32 PM CDT Narrative [facility] ([facility]) - 12/12/2019 3:35 AM CDT Performed at: ??01 - [facility] ??[id number] Nut Dehydrator Operator: Kiran Guerra MD, Phone: ??[phone] Christiano Pino MD LAB - CHEMISTRY MIRI GO [facility] ([facility]) [address] [place] [address] * (ABNORMAL) HEPATITIS SCREEN ACUTE (12/08/2019 11:34 AM CDT) [facility] HAV Antibody IgM Non Reactive Non Reactive 12/08/2019 1:48 PM CDT [facility] HBsAg Non Reactive Non Reactive 12/08/2019 1:48 PM CDT [facility] HBc Antibody IgM Non Reactive Non Reactive 12/08/2019 1:48 PM CDT [facility] HCV Antibody Screen REACTIVE(A) Non Reactive 12/08/2019 1:48 PM CDT [facility] Blood BLOOD SPECIMEN / Unknown Lab Venipuncture / Unknown 12/08/2019 11:34 AM CDT 12/08/2019 12:32 PM CDT Narrative [facility] - 12/08/2019 1:48 PM CDT A reactive result is consistent with current HCV infection or past HCV infection that has been resolved. Reflex testing to Hepatitis C Virus RNA Quantitative, Real Time PCR will be performed. See separate report. Christiano Pino MD LAB - CHEMISTRY MIRI GO Performing Organization Address [facility]/ZIP Co de Phone Number [facility] [address] [place] [phone] * TSH REFLEX FREE T4 (12/08/2019 7:03 AM CDT) TSH 0.826 0.350 - 4.940 uIU/mL 12/08/2019 11:02 AM CDT [facility] Blood BLOOD SPECIMEN / Unknown Lab Venipuncture / Unknown 12/08/2019 7:03 AM CDT 12/08/2019 7:48 AM CDT Christiano Pino MD LAB - CHEMISTRY MIRI GO Performing Organization Address [facility] Co de Phone Number [facility] [address] [place] [phone] * (ABNORMAL) CYTOMEGALOVIRUS ANTIBODY IGG/IGM BLOOD (12/08/2019 7:03 AM CDT) Cytomegalovirus Antibody IgG 5.40(H) 0.00 - 0.59 U/mL 12/10/2019 8:08 AM CDT [facility] ([facility]) Comment: ? Negative ?<0.60 ? Equivocal ?? 0.60 - 0.69 ? Positive ?>0.69 Cytomegalovirus Antibody IgM <30.0 0.0 - 29.9 AU/mL 12/10/2019 8:08 AM CDT [facility] ([facility]) Comment: ?Negative ? <30.0 ?Equivocal ??30.0 - 34.9 ?Positive ? >34.9 A positive result is generally indicative of acute infection, reactivation or persistent IgM production. Blood BLOOD SPECIMEN / Unknown Lab Venipuncture / Unknown 12/08/2019 7:03 AM CDT 12/08/2019 7:48 AM CDT Narrative [facility] ([facility]) - 12/10/2019 8:08 AM CDT Performed at: ??01 - [facility] [address], [place] ??[id number] Nut Dehydrator Operator: Tyrone Rider PhD, Phone: ??[phone] Pattie Castellon MD LAB - CHEMISTRY ORD ERABLES [facility] ([facility]) [address] [place] [address] * RUBELLA ANTIBODY IGM TITER (12/08/2019 7:03 AM CDT) Rubella Antibody IgM <20.0 0.0 - 19.9 AU/mL 12/10/2019 8:08 AM CDT [facility] ([facility]) Comment: ? Negative ?<20.0 ? Equivocal ? 20.0 - 24.9 ? Positive ?>24.9 Blood BLOOD SPECIMEN / Unknown Lab Venipuncture / Unknown 12/08/2019 7:03 AM CDT 12/08/2019 8:17 AM CDT Narrative [facility] ([facility]) - 12/10/2019 8:08 AM CDT Performed at: ??01 - [facility] [address], [place], [place] ??[id number] Nut Dehydrator Operator: Tyrone Rider PhD, Phone: ??[phone] Asuncion Aparicio MD LAB - SEROLOGY ORDER CRUZITO Performing Organization Address City/State/[facility] Co de Phone Number [facility] ([facility]) [address] [place] [address] * HEMOGLOBIN ELECTROPHORESIS (12/08/2019 7:03 AM CDT) Hemoglobin A1 98.3 97.1 - 99.1 % 12/12/2019 10:19 AM CDT [facility] Hemoglobin F 0.0 0.0 - 2.0 % 12/12/2019 10:19 AM CDT [facility] Hemoglobin S 0.0 <=0.0 % 12/12/2019 10:19 AM CDT [facility] Hemoglobin C 0.0 <=0.0 % 12/12/2019 10:19 AM CDT [facility] Hemoglobin A2 1.7 0.9 - 2.9 % 12/12/2019 10:19 AM CDT [facility] Hemoglobin E 0.0 % 12/12/2019 10:19 AM CDT [facility] Interpretation Normal Interpretation 12/12/2019 10:19 AM CDT [facility] Blood BLOOD SPECIMEN / Unknown Lab Venipuncture / Unknown 12/08/2019 7:03 AM CDT 12/08/2019 7:48 AM CDT Pattie Castellon MD LAB - CHEMISTRY RIGOBERTO DOSS Performing Organization Address [facility] Co de Phone Number [facility] [address] [place] [phone] * HEPATITIS B SURFACE ANTIGEN W RFLX CONFIRMATION (12/08/2019 7:03 AM CDT) Pathologist [facility] HBsAg Non Reactive Non Reactive 12/08/2019 10:59 AM CDT [facility] Blood BLOOD SPECIMEN / Unknown Lab Venipuncture / Unknown 12/08/2019 7:03 AM CDT 12/08/2019 8:17 AM CDT Asuncion Aparicio MD LAB - CHEMISTRY MIRI GO Performing Organization Address [facility] Co de Phone Number [facility] [address] [place] [phone] * (ABNORMAL) FOLATE (12/08/2019 7:03 AM CDT) Pathologist [facility] Folate 6.8(L) 7.0 - 31.4 ng/mL 12/08/2019 11:02 AM CDT [facility] Blood BLOOD SPECIMEN / Unknown Lab Venipuncture / Unknown 12/08/2019 7:03 AM CDT 12/08/2019 7:48 AM CDT Christiano Pino MD LAB - CHEMISTRY MIRI GO Performing Organization Address [facility] Co de Phone Number [facility] [address] [place] [phone] * (ABNORMAL) IRON + TRANSFERRIN PANEL (12/08/2019 7:03 AM CDT) Iron 15(L) 50 - 170 ug/dL 12/08/2019 8:11 AM CDT [facility] Transferrin 472(H) 180 - 382 mg/dL 12/08/2019 8:11 AM CDT [facility] TIBC Calculated 590(H) 240 - 450 ug/ml 12/08/2019 8:11 AM CDT [facility] Iron Saturation % 3(L) 20 - 50 % 12/08/2019 8:11 AM CDT [facility] Blood BLOOD SPECIMEN / Unknown Lab Venipuncture / Unknown 12/08/2019 7:03 AM CDT 12/08/2019 7:48 AM CDT Pattie Castellon MD LAB - CHEMISTRY ORD ERABLES Performing Organization Address City/[facility]/ZIP Co de Phone Number [facility] [address] [place], [place] [phone] * (ABNORMAL) FERRITIN (12/08/2019 7:03 AM CDT) Ferritin 2(L) 5 - 204 ng/mL 12/08/2019 8:31 AM CDT [facility] Blood BLOOD SPECIMEN / Unknown Lab Venipuncture / Unknown 12/08/2019 7:03 AM CDT 12/08/2019 7:48 AM CDT Pattie Castellon MD LAB - CHEMISTRY ORD ERABLES Performing Organization Address City/[facility]/ZIP Co de Phone Number [facility] [address] [place], [place] [phone] Care Teams Pulp Refiner Operator Relationship Specialty Start Date End Date Alejandro Blevins MD [address] [place] [phone] PCP - General Family Medicine 12/07/19
--- OUTSIDE RECORDS SUMMARY | 2024-07-11 05:36 | XMS_ITS ---
Author Organization Unknown Address [address] [place] [phone] Phone Care Team Providers Care Registered Respiratory Technician Name Role Phone ZULLY Anaya Attending Unavailable KARYN GARCIA Primary Unavailable Immunization Immunization Date Status Additional Notes Code Code System DTP 12/23/1993 Completed 01 CVX OPV 12/23/1993 Completed 02 CVX MMR 10/25/1989 Completed 03 CVX MMR 12/23/1993 Completed 03 CVX Hib, unspecified formulation 04/06/1990 Completed 17 CVX Hep A, adult 08/01/2014 Completed 52 CVX Hep A, adult 04/08/2015 Completed 52 CVX polio, unspecified formulation 1988 Completed 89 CVX polio, unspecified formulation 04/07/1989 Completed 89 CVX polio, unspecified formulation 12/27/1989 Completed 89 CVX DTaP, unspecified formulation 1988 Completed 107 CVX DTaP, unspecified formulation 04/07/1989 Completed 107 CVX DTaP, unspecified formulation 12/27/1989 Completed 107 CVX Pneumococcal conjugate PCV 13 08/01/2014 Completed 133 CVX Results ANKLE 3V LEFT - Completed: 0 10/12/2023 10:08 LOINC: EXAM DESCRIPTION: ANKLE 3V LEFT REASON FOR STUDY: ROLLED ANKLE DOWN A COUPLE STEPS TODAY GENERALIZED PAIN, SWELLING, BRUISING LROM Duration: TODAY TECHNIQUE: 3 radiographic view(s) of the left ankle . COMPARISON: None available FINDINGS: Joint alignment is normal.. The ankle mortise is intact. No fracture is seen. The joint spaces are normal. There is lateral soft tissue swelling. IMPRESSION: Lateral left ankle soft tissue swelling. No fracture identified. THIS IS AN ELECTRONICALLY VERIFIED FINAL REPORT 10/12/2023 10:23 AM - Electronically signed by Cole Rae M.D. MZ: MZ Report ID: [id number] Reading Location: [place] [address] Social History Type Status Start Date End Date Code Code Syst em Smoking History Never smoker (Never Smoked) [id number] SNOMED CT Sex Female Hospital Discharge Instructions Should you have any questions prior to discharge, please contact a member of your healthcare team. If you have left the hospital and have any questions, please contact your primary care physician. Reason For Referral No Data Found Plan of Treatment No Data Found Encounters Encounter Diagnosis Start Date Code Code Sys tem Sprain of unspecified ligame nt of left ankle, initial encounter 10/12/2023 SNOMED-CT Personal Care Team Section Performer Name Performer Role Active Date Inactive JOSE Buchanan PCP - Primary care physician
--- OUTSIDE RECORDS SUMMARY | 2024-07-11 05:36 | XMS_ITS | Encounter Summary ---
Author Organization [facility] Address [address] [place] [address] Care Team Providers Care Color Matcher Name Role Phone Alejandro Blevins MD Primary Care Provider [phone] Reason for Visit * Reason Comments Colposcopy LEEP Encounter Details Date Type Department Care Team (Latest Contact Info) Description 02/18/2021 11:15 AM CDT - 02/18/2021 11:59 PM CDT Hospital Encounter [facility] MATERNAL/ EVALUATION UNIT [address] [facility] [place] [address] Adrienne Roth MD [address] [facility] [address] [place] [address] Discharge Disposition: Home or Self Care Social History Tobacco Use Types Packs/Day Years [...] on file documented as of this encounter Last Filed Vital Signs Vital Sign Reading Time Taken Comments Blood Pressure 105/68 02/18/2021 11:25 AM CDT Pulse 69 02/18/2021 11:25 AM CDT Temperature - - Respiratory Rate - - Oxygen Saturation - - Inhaled Oxygen Concentration - - Weight - - Height - - Body Mass Index - - documented in this encounter Functional Status Functional Status Response [...] No 04/17/2020 documented as of this encounter Discharge Instructions * Patient Instructions* Yodit Yoon MD - 02/18/2021 12:29 PM CDT Gynecology Clinic Phone: [phone] AFTER CARE INSTRUCTIONS: LEEP After the procedure, you may have menstrual-like cramps. They may begin immediately and could last for several hours. Ibuprofen will help relieve these pains. Additionally, you may notice a vaginal discharge. The color may be brown, black, red, or yellow. This is normal and may last for a few days to a few weeks. It is important that you do not have sexual intercourse, douche, or use tampons for 4 weeks after your appointment. These could cause infection or bleeding while your cervix is healing. Please keep your follow-up appointment in 4 weeks. CALL THE DOCTOR if you experience severe pain, bleeding more than a period, develop a fever greaterthan or equal to 100.5 degrees, or develop a foul smelling vaginal discharge. You can usually reachone of your doctors by calling the clinic Tuesday through Tuesday, 9:00 am to 4:00 pm. If you cannot reach your doctors there, call the tool honing machine set up operator at [facility] and ask for the TECHNICAL SUPPORT TECHNICIAN resident distribution field technician. documented in this encounter Medications at Time of Discharge Medication Sig Dispensed Refills Start Date End Date Acetaminophen-Codeine 300-30 MG Take 1 tablet by mouth every 4 hours as needed clindamycin (CLEOCIN) 300 MG capsule 01/12/2021 Cyanocobalamin 1000 MCG Take 1 tablet by mouth once daily 30 tablet 2 04/23/2020 docusate sodium (COLACE) 100 MG capsule Take 1 capsule by mouth 2 times daily 60 capsule 1 04/23/2020 folic acid (FOLVITE) 1 MG tablet Take 1 tablet by mouth once daily 30 tablet 2 04/23/2020 ibuprofen (MOTRIN) 600 MG tablet Take 1 tablet by mouth every 6 hours as needed for Pain 40 tablet 1 05/01/2020 iron polysaccharides (NIFEREX 150) 150 MG capsule Take 1 capsule by mouth once daily 100 capsule 04/23/2020 Vit-Fe Fumarate-FA ( PLUS) 27-1 MG tablet Take 1 (one) tablet by mouth once daily 100 tablet 1 01/15/2021 documented as of this encounter Progress Notes * Paris San RN - 02/18/2021 1:40 PM CDT Patient presents for colposcopy/LEEP. Verbal and written consent given. Time Out completed at 1159.Three specimens obtained, labeled and walked to lab by this RN. Patient tolerated the procedure well. Staff present in room: Car Corado and this RN. Patient discharged to home with written instructions, v/u stated. documented in this encounter Procedure Notes * Adrienne Roth MD - 02/17/2021 5:33 PM CDT Images from the original note were not included. LEEP Procedure Hillary Smalls 30 year old Presents to colposcopy clinic today for LEEP procedure. Procedure reviewed with patient including risks of bleeding and infection and injury to cervix. Discussed risk of cervical insufficiency and possible increase risk of labor and delivery in future pregnancies, however the patient does not desire future fertility. Her plan was for a BTL, and then she decidedon an IUD for the improved bleeding profile, given her history of ITP. Her IUD was placed immediately following the colposcopy. The patient was counseled on her options regarding removal of the IUD prior to LEEP or attempting to reduce the strings into the cervical canal in order to avoid severing the strings during the procedure. She opted to keep the IUD in situ. LMP: bleeding currently Contraception: IUD placed 02/10 Referring MD: Dr. Valdivia Indications for LEEP Colposcopy performed on 02/11 for ASC-H and HRHPV Colposcopy was significant for HGSIL/CIN3 at both 6 o'clock and 12 o'clock biopies. The ECC showed scant detached fragments of HGSIL. Pertinent history: Abnormal pap smear and biopsy results as above. She has no prior history of colposcopy. She has a history of ITP. She is followed by hematology and her last plt count was 86 on 12/30/20. Colposcopy was performed prior to LEEP and was notable for acetowhite epithelium primarily of the anterior cervix. There were moderate to thick changes noted from 11 o'clock to 1 o'clock. 6cc of 1%lidocaine with epinephrine used for intracervical block. Two passes were made with the loop electrode.First, a pass was performed laterally from right to left. An additional pass was performed from theanterior cervix to the level of the first pass in order to get all of the area of the cervix with acetowhite changes. An ECC was performed. Rollerball cautery was used to gain hemostasis and monsels applied to the surgical site. The patient tolerated the procedure well with good hemostasis noted atend of procedure. Plan: Call pt with results of her LEEP. Pt contact info: [phone] ATTENDING I was present and personally performed a portion of the LEEP. See resident note for full details. Iagree with the assessment and plan of care. Will contact pt with results and formulate a plan. IUD strings seen and pushed up into the cervical canal away from the area of the LEEP. Good hemostasis noted after the procedure Of not pt with ITP No abnormal bleeding noted and hemostatic after the procedure. Adrienne Roth M.D. documented in this encounter Plan of Treatment Not on file documented as of this encounter Procedures Procedure Name Priority Date/Time Associated Diagnosis Comments PATHOLOGY TISSUE EXAM (STL) Routine 02/18/2021 1:41 PM CDT Atypical squamous cells cannot exclude high grade squamous intraepithelial lesion on cytologic smear of cervix (ASC-H) HCG URINE QUALITATIVE - POCT (IP) INTERFACED Routine 02/18/2021 11:48 AM CDT documented in this encounter Results * PATHOLOGY TISSUE EXAM (STL) (02/18/2021 1:41 PM CDT) Case Report Surgical Pathology Report ? Case: [id number] ? Authorizing Provider: ??Adrienne Roth MD ?Collected: ? 02/18/2021 01:41 PM ? Ordering Location: ? [facility]/ ?Received: ?02/18/2021 02:48 PM ? EVALUATION UNIT ? Pathologist: ? Dyan Simpson MD ? Specimens: ?? A) - Cervix Conization, Central LEEP ? B) - Cervix Conization, Anterior LEEP ? C) - Endocervix Curettings, ECC ? 02/20/2021 6:34 PM T [facility] Final Diagnosis Uterus, cervix, central, LEEP conization (A): - High-grade squamous intraepithelial lesion (HSIL); all margins negative for HSIL Uterus, cervix, anterior lip, LEEP conization (B): - No pathologic diagnosis (ectocervix only) Uterus, endocervix, curettage (C): - Mucin with very scant benign endocervical cells (see description) 02/20/2021 6:34 PM [facility] Clinical History The patient is a 30-year-old woman who presented for definitive treatment of HSIL seen on cervical biopsy. 02/20/2021 6:34 PM [facility] Gross Description The requisition and [...] specimen B cervix BX consists of a pink-ejan-baptiste fragment of soft tissue 1.5 x 0.8 x 0.5 cm. The shiny, smooth pink-jean-baptiste ectocervix measures 1.5 x 0.4 cm. The surgical resection margin is inked black. The specimen is serially sectioned and entirely submitted in cassette B1 and B2. Received in formalin, specimen C endocrvx talent development coordinator consists of a white-jean-baptiste brush with minimally attached mucoid, brown-jean-baptiste soft tissue measuring 0.5 x 0.5 by less than 0.1 cm submitted in toto in cassette C1. AR 02/20/2021 6:34 PM [facility] Microscopic Description Microscopic examination substantiates [...] is no intact epithelium. 02/20/2021 6:34 PM [facility] Disclaimer All histochemical and/or immunohistochemical results are interpreted with controls that demonstrate appropriate staining reactions before reporting results. Note on use of immunocytochemistry reagents: This test was developed and its performance characteristic determined by [facility], Department of Laboratory Medicine. It has [...] be interpreted with caution. 02/20/2021 6:34 PM [facility] Embedded Images 02/20/2021 6:34 PM [facility] Pathology/Cytology SPECIMEN FROM LESION OF UTERINE [...] - PATHOLOGY/CY TOLOGY ORDERABLES Performing Organization Address City/[facility]/ZIP Co de Phone Number [facility] [address] [place] [address] * HCG URINE QUALITATIVE - POCT (IP) INTERFACED (02/18/2021 11:48 AM CDT) HCG Qual Urine Negative Negative 02/18/2021 11:53 AM CDT [facility] Urine URINE / Unknown 02/18/2021 1 1:48 AM CDT 02/18/2021 11:53 AM CDT Adrienne Roth MD LAB - POINT OF CAR E ORDERABLES Performing Organization Address City/[facility] Co de Phone Number [facility] [address] [place] [address] documented in this encounter Visit Diagnoses Diagnosis Atypical squamous cells cannot exclude high grade squamous intraepithelial lesion on cytologic smear of cervix (ASC-H)- Primary Papanicolaou smear of cervix with atypical squamous cells cannot exclude high grade squamous intraepithelial lesion (ASC-H) documented in this encounter Administered Medications Inactive Administered Medications - up to 3 most recent administrations Medication Order MAR Action Action Date Dose Rate Site lidocaine 1% (Xylocaine-MPF) - EPINEPHrine 1:100,000 injection Infiltration, ONCE, 1 dose, On Tue02/18/21 at 1400 $ Given 02/18/2021 1:43 PM CDT 6 mL Ce rvix documented in this encounter Care Teams Color Matcher Relationship Specialty Start Date End Date Alejandro Blevins MD [address] [place] [id number] PCP - General Family Medicine 12/07/19 documented as of this encounter
--- OUTSIDE RECORDS SUMMARY | 2024-07-11 05:36 | XMS_ITS | Encounter Summary ---
Author Organization [facility] Address [address] [place] [address] Care Team Providers Care Turbine Blade Assembler Name Role Phone Alejandro Blevins MD Primary Care Provider [phone] Encounter Details Date Type Department Care Team (Latest Contact Info) Description 06/02/2020 Travel Social History Tobacco Use Types Packs/Day [...] COVID-19? No / Unsure 06/02/2020 8:22 AM PHOTOGRAPHIC COLORIST documented as of this encounter Functional Status [...] on filedocumented in this encounter Care Teams Turbine Blade Assembler Relationship Specialty Start Date End Date Alejandro Blevins MD [address] [place] [id number] PCP - General Family Medicine 12/07/19 documented as of this encounter
--- OUTSIDE RECORDS SUMMARY | 2024-07-11 05:36 | XMS_ITS | Encounter Summary ---
Author Organization [facility] Address [address] [place] [address] Care Team Providers Care Door Assembler Name Role Phone Alejandro Blevins MD Primary Care Provider [phone]- [phone] Reason for Visit * Reason Comments Care Encounter Details Date Type Department Care Team (Late st Contact Info) Description 06/02/2020 8:15 AM ELEVATOR SERVICEMAN - 06/02/2020 11:59 PM ELEVATOR SERVICEMAN Hospital Encounter [facility]/ EVALUATION UNIT [address] [facility] [place] [address] Derrick Swanson MD [address] [facility] [address] [place] [address] Discharge Disposition: Home or Self Care Social [...] COVID-19? No / Unsure 06/02/2020 8:22 AM ELEVATOR SERVICEMAN documented as of this encounter Last Filed Vital Signs Vital Sign Reading Time Taken Comments Blood Pressure 120/80 06/02/2020 8:43 AM ELEVATOR SERVICEMAN Pulse 77 06/02/2020 8:43 AM ELEVATOR SERVICEMAN Temperature 36.2 ??C (97.2 ??F) 06/02/2020 8:43 AM CS T Respiratory Rate - - Oxygen Saturation - - Inhaled Oxygen Concentration - - Weight 59.9 kg (132 lb) 06/02/2020 8:43 AM ELEVATOR SERVICEMAN Height - - Body Mass Index 23.38 05/12/2020 10:20 AM CDT documented in this encounter Functional Status Functional [...] No 04/17/2020 documented as of this encounter Medications at Time of Discharge Medication Sig Dispensed Refills Start Date End Date Cyanocobalamin 1000 MCG Take 1 tablet by [...] by mouth once daily 100 capsule 04/23/2020 calcium carbonate (TUMS) 500 MG chew tablet Take 1 tablet by mouth every 2 hours as needed for Heartburn 60 tablet 3 01/23/2020 01/14/2021 oxyCODONE, immediate release, (ROXICODONE) 5 MG tablet Take 1 tablet by mouth every 4 hours as needed for Pain 12 tablet 04/23/2020 01/14/2021 Vit-Fe Fumarate-FA ( PLUS) 27-1 MG tablet Take 1 tablet by mouth once daily 30 tablet 5 01/23/2020 01/15/2021 documented as of this encounter Progress Notes * Sparkle Paul RN - 06/02/2020 8:54 AM CST [employer] form completed. Diapers given. 06/02/2020 ATOR SERVICEMAN documented in this encounter Plan of Treatment Not on file documented as of this encounter Visit Diagnoses Not on filedocumented in this encounter Care Teams Door Assembler Relationship Specialty Start Date End Date Alejandro Blevins MD [address] [place] [address] PCP - General Family Medicine 12/07/19 documented as of this encounter
--- OUTSIDE RECORDS SUMMARY | 2024-07-11 05:36 | XMS_ITS | Referral Summary ---
Author Organization [facility] Address [address] [place] [address] Care Team Providers Care Energy Broker Name Role Phone Alejandro Blevins MD Primary Care Provider [phone] Source Comments [facility],non-owned Affiliates and Associated Physician Practices is amultiple site organization consisting of ambulatory clinics and hospital sitesin [place], [place], [place] and [place]. This disclosure is being madepursuant to the Care Everywhere program and may not contain all information available regarding this patient. Last updated 18.[facility] Allergies Active Allergy Reactions Criticality Noted Date Comments Bee Venom Anaphylaxis High 12/07/2019 Contrast-Iodinated Agents For Ct/Other Anaphylaxis High 02/04/2021 Shellfish Allergy Anaphylaxis High 12/07/2019 Medications * Be aware that medications may not be up to date on this document. Alwaysverify current medications with the patient. Medication Sig Dispensed Refills Start Date End Date Status iron polysaccharides (NIFEREX 150) 150 MG capsule Take 1 capsule by mouth once daily 100 capsule 04/23/2020 Active Additional Information Patient not taking.Reported on 01/14/2021 Cyanocobalamin 1000 MCG Take 1 tablet by mouth once daily 30 tablet 2 04/23/2020 Active Additional Information Patient not taking.Reported on 01/14/2021 folic acid (FOLVITE) 1 MG tablet Take 1 tablet by mouth once daily 30 tablet 2 04/23/2020 Active Additional Information Patient not taking.Reported on 01/14/2021 docusate sodium (COLACE) 100 MG capsule Take 1 capsule by mouth 2 times daily 60 capsule 1 04/23/2020 Active Additional Information Patient not taking.Reported on 05/12/2020 ibuprofen (MOTRIN) 600 MG tablet Take 1 tablet by mouth every 6 hours as needed for Pain 40 tablet 1 05/01/2020 Active Additional Information Patient not taking.Reported on 01/14/2021 clindamycin (CLEOCIN) 300 MG capsule 01/12/2021 Active Acetaminophen-Codeine 300-30 MG Take 1 tablet by mouth every 4 hours as needed Active Vit-Fe Fumarate-FA ( PLUS) 27-1 MG tablet Take 1 (one) tablet by mouth once daily 100 tablet 1 01/15/2021 Active Additional Information Patient not taking.Reported on 02/04/2021 HYDROcodone-acetamino phen (NORCO) 10-325 MG tablet Take 750 tablets by mouth every 8 hours 02/24/2021 Active amoxicillin-clavulana te (AUGMENTIN) 875-125 MG tablet Take 1,000 mg by mouth 3 times daily 03/25/2021 Active Active Problems Patient Care Coordination No te Formatting of this note migh t be different from the original. [employer] form completed. Diapers given. 06/02/2020 Problem Noted Date Diagnosed Date Acute respiratory [...] lesion on cytologic smear of cervix (ASC-H) Immunizations Name Administration Dates Next Due INFLUENZA VACCINE, QUADR. (F LUZONE; FLULAVAL; FLUARIX; AFLURIA QUADRIVALENT; 6MO+), 0.5 ML (IIV4) 04/21/2020(Deferred: Patient Refused) MMR 04/19/2020(Deferred: See Comments - pt is rubella immune) TDAP (7yrs+) 04/21/2020(Deferred: Patient Ref used) Social History Tobacco Use Types Packs/Day Years [...] Comments Blood Pressure 108/71 08/19/2021 11:05 AM DINKEY LOCOMOTIVE ENGINEER Pulse 74 08/19/2021 11:05 AM DINKEY LOCOMOTIVE ENGINEER Temperature 36.2 ??C (97.2 ??F) 06/02/2020 8:43 AM CS T Respiratory Rate 18 04/23/2020 12:00 AM CDT Oxygen Saturation 99% 04/23/2020 8:30 AM CDT Inhaled Oxygen Concentration 25% 04/19/2020 8 :22 AM CDT Weight 67.1 kg (148 lb) 01/14/2021 8:35 AM CDT Height 160 cm (5' 3 ) 05/12/2020 10:20 AM CDT Body Mass Index 26.22 05/12/2020 10:20 AM CDT Functional Status Functional Status Response Date of [...] person have difficulty concentrating/remembering/making decisions? No 04/17/2020 Plan of Treatment Not on file Procedures Procedure Name Priority Date/Time Associated Diagnosis Comments PAP IG LB+HPV APTIMA Routine 08/19/2021 11:34 AM DINKEY LOCOMOTIVE ENGINEER High grade squamous intraepithelial lesion (HGSIL), grade 3 WIL, on biopsy of cervix HIV-1 HIV-2 ANTIBODY + HIV P24 AG PANEL STAT 04/17/2020 8:57 PM CDT HEPATITIS C RNA QUANTITATIVE Routine 12/08/2019 7:03 AM CDT Anemia, unspecified type from Last 3 Months or Most Recently Relevant to Health Maintenance Results * PAP IG LB+HPV APTIMA (08/19/2021 11:34 AM DINKEY LOCOMOTIVE ENGINEER) Diagnosis Comment 08/22/2021 7:09 AM DINKEY LOCOMOTIVE ENGINEER [facility] ([facility]) Comment:NEGATIVE FOR INTRAEP ITHELIAL LESION OR MALIGNANCY. Specimen Adequacy Comment 022 7:09 AM DINKEY LOCOMOTIVE ENGINEER [facility] ([facility]) Comment: Satisfactory for evaluation. ??Endocervical and/or squamous metaplastic cells (endocervical component) are present. Performed by Comment 08/22/2021 7:09 AM DINKEY LOCOMOTIVE ENGINEER [facility] ([facility]) Comment:Nella Montes, Level Glass Vial Filler (ASCP) Comment . 08/22/2021 7:09 AM DINKEY LOCOMOTIVE ENGINEER [facility] ([facility]) Note Comment 08/22/2021 7:09 AM DINKEY LOCOMOTIVE ENGINEER [facility] ([facility]) Comment: The Pap smear is a screening test designed to aid in the detection of premalignant and malignant conditions of the uterine cervix. ??It is not a diagnostic procedure and should not be used as the sole means of detecting cervical cancer. ??Both false-positive and false-negative reports do occur. IGLBP CPT Code Automation Comment 08/22/2021 7:09 AM DINKEY LOCOMOTIVE ENGINEER [facility] ([facility]) Comment: This liquid based ThinPrep(R) pap test was screened with the use of an image guided system. Human papillomavirus Aptima Negative Negative 08/22/2021 7:09 AM DINKEY LOCOMOTIVE ENGINEER [facility] ([facility]) Comment: This nucleic acid amplification test detects fourteen high-risk HPV types (16,18,31,33,35,39,45,51,52,56,58,59,66,68) without differentiation. Pathology/Cytolo gy ENTIRE ENDOCERVIX / Unknown Collection / Unknown 08/19/2021 11:34 AM DINKEY LOCOMOTIVE ENGINEER 08/19/2021 12:41 PM DINKEY LOCOMOTIVE ENGINEER Narrative [facility] ([facility]) - 08/22/2021 7:09 AM DINKEY LOCOMOTIVE ENGINEER Performed at: ??01 - [facility] [address] ??[id number] Senior Structural Engineer: Stephanie Lemus MD, Phone: ??[phone] Performed at: ??02 - [facility] ??[id number] Senior Structural Engineer: Stephanie Lemus MD, Phone: ??[phone] Specimen Comment: No. of containers..01 ThinPrep Vial Adrienne Roth MD LAB - PATHOLOGY/CY TOLOGY ORDERABLES [facility] ([facility]) [address] [place] [address] * HIV-1 HIV-2 ANTIBODY + HIV P24 AG PANEL (04/17/2020 8:57 PM CDT) [facility] HIV1/2 Ab + P24 Ag Non Reactive Non Reactive 04/17/2020 10:02 PM CDT [facility] Blood BLOOD SPECIMEN / Unknown Venipuncture / Unknown 04/17/2020 8:57 PM CDT 04/17/2020 9:09 PM CDT Narrative [facility] - 04/17/2020 10:02 PM CDT No Laboratory evidence of HIV infection. Mayuri Norton MD LAB - CHEMISTRY MIRI GO Performing Organization Address City/[facility]/ZIP Co de Phone Number [facility] [address] [place] [address] * HEPATITIS C RNA QUANTITATIVE (12/08/2019 7:03 AM CDT) [facility] Hepatitis C Virus Quantitation [id number] IU/mL 12/19/2019 6:08 AM CDT [facility] ([facility]) Hepatitis C Virus Log 10 6.217 log10 IU/mL 12/19/2019 6:08 AM CDT [facility] ([facility]) Test Information Comment 12/19/19 6:08 AM CDT [facility] ([facility]) Comment:The quantitative ran ge of this assay is 15 IU/mL to 100 million IU/mL. Blood BLOOD SPECIMEN / Unknown Lab Venipuncture / Unknown 12/08/2019 7:03 AM CDT 12/08/2019 7:48 AM CDT Narrative [facility] ([facility]) - 12/19/2019 6:08 AM CDT Performed at: ??01 - [facility] [address] ??[id number] Senior Structural Engineer: Kiran Guerra MD, Phone: ??[phone] Pattie Castellon MD LAB - CHEMISTRY ORD ERABLES [facility] ([facility]) [address] [place] [address] from Last 3 Months or Most Recently Relevant to Health Maintenance Advance Directives * Full Code (Latest Code Status on File) Date Activated Date Inactivated Comments 04/18/2020 5:26 AM 04/23/2020 5:11 PM * Full Code Date Activated Date Inactivated Comments 04/17/2020 9:19 PM 04/18/2020 5:26 AM * Full Code Date Activated Date Inactivated Comments 12/08/2019 2:09 AM 12/09/2019 7:07 PM Care Teams Energy Broker Relationship Specialty Start Date End Date Alejandro Blevins MD [address] [place] [address] PCP - General Family Medicine 12/07/19
--- OUTSIDE RECORDS SUMMARY | 2024-07-11 05:36 | XMS_ITS | Encounter Summary ---
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 MATERNAL/ EVALUATION UNIT [address] [facility]. [address] [place] [address] Ino Soares MD [address] [facility] [address] [place] [address] Discharge Disposition: Home or Self Care Social [...] or suspected to have Coronavirus / COVID-19? Unable to assess 12/31/2020 10:17 AM CDT documented as of this encounter Last Filed Vital Signs Vital Sign Reading Time Taken Comments Blood Pressure 108/65 01/14/2021 8:35 AM CDT Pulse 77 01/14/2021 8:35 AM CDT Temperature - - Respiratory Rate - - Oxygen Saturation - - Inhaled Oxygen Concentration - - Weight 67.1 kg (148 lb) 01/14/2021 8:35 AM CDT Height - - Body Mass Index 26.22 05/12/2020 10:20 AM CDT documented in this [...] daily 100 capsule 04/23/2020 Vit-Fe Fumarate-FA ( 19 CHEWABLE) tablet Take 1 (one) tablet by mouth once daily 90 tablet 2 01/14/2021 01/15/2021 Vit-Fe Fumarate-FA ( PLUS) 27-1 MG tablet Take 1 tablet by mouth once daily 30 tablet 5 01/23/2020 01/15/2021 documented as of this encounter Progress Notes * Ino Soares MD - 01/14/2021 9:07 AM CDT PGY3 PRODUCT EVANGELIST Visit CC: here to discuss IUD S: Hillary Smalls is a 30 year old who presents today with no complaints. Wants to get an IUD. Previously had Mirena in 2007 with no side effects. She does have a long history of abnormal pap smears most recently ASC-H with + HPV. Past PRODUCT EVANGELIST Hx: 1. Patient reports pap @ [facility], with suspected cervical cancer. No follow-up. 2. 05/12/20 ASC-H/+ HR HPV O: Vitals: 01/14/21 0835 BP: 108/65 Pulse: 77 Weight: 148 lb (67.1 kg) Physical Exam General: alert, cooperative, in no distress HEENT: conjunctiva and lids normal Heart: regular rate Lungs: non-labored respirations on room air Neuro: cranial nerves grossly intact, moving all extremities Psych: appropriate affect Assessment/Plan: 30 year old here for: control counseling - wants IUD - insurance does not cover IUD at [facility] - [facility] - e-prescribed PNVs until starts BC - schedule appointment on her menses for IUD placement - declined bridging control ASC-H pap - colpo NANCY D/w Dr. Rodger Bowman MD 01/14/2021 9:27 AM Attending Note I reviewed the history and physical exam findings with Dr. Bowman at the time of the visit. Patient presents with a diagnosis of family planning and abnormal pap My exam and assessment today shows: wnl Follow up: colpo nancy I agree with the diagnosis and documented plan of care as documented in the resident note. Ino Soares MD 110:52 AM documented in this encounter Plan of Treatment Not on file documented as of this encounter Visit Diagnoses Not on filedocumented in this encounter Care Teams Body Painter Relationship Specialty Start Date End Date Alejandro Blevins MD [address] [place] [phone] PCP - General Family Medicine 12/07/19 documented as of this encounter
--- OUTSIDE RECORDS SUMMARY | 2024-07-11 05:36 | XMS_ITS | Encounter Summary ---
Author Organization [facility] Address [address] [place] [address] Care Team Providers Care Payroll Administrator Name Role Phone Alejandro Blevins MD Primary Care Provider [phone]- [phone] Reason for Visit * Reason Comments Follow-up 04/18-boy/girl-c/s- 5 lbs 130z x2- BTL Encounter Details Date Type Department Care Team (Latest Contact Info) Description 05/12/2020 9:56 AM CDT - 05/12/2020 11:59 PM CDT Hospital Encounter [facility] MATERNAL/ EVALUATION UNIT [address] [facility]. [address] [place] [address] Phuong Frazier MD [address] [place] [id number] Discharge Disposition: Home or Self Care Social [...] have Coronavirus / COVID-19? No / Unsure 05/12/2020 9:47 AM CDT documented as of this encounter Last Filed Vital Signs Vital Sign Reading Time Taken Comments Blood Pressure 146/95 05/12/2020 10:20 AM CDT Pulse 80 05/12/2020 10:20 AM CDT Temperature 36 ??C (96.8 ??F) 05/12/2020 10:20 AM CDT Respiratory Rate - - Oxygen Saturation - - Inhaled Oxygen Concentration - - Weight 60.8 kg (134 lb) 05/12/2020 10:20 AM CDT Height 160 cm (5' 3 ) 05/12/2020 10:20 AM CDT Body Mass Index 23.74 05/12/2020 10:20 AM CDT documented in this [...] as of this encounter Progress Notes * Emma Lazo RN - 05/12/2020 10:00 AM CDT [employer] form completed. Diapers given. 05/12/2020 * Tuan Platt MD - 05/12/2020 10:00 AM CDT PGY1 High Risk [facility] Return Visit 05/12/20 S: Hillary Smalls is a 29 year old week 3 Today she notes no issues today, and is taking her BP's regularly. Her is c/b: Patient Active Problem List Diagnosis Date Noted ??? Acute respiratory failure 04/19/2020 Priority: Not Prioritized ??? Acute blood loss anemia 04/19/2020 Priority: Not Prioritized ??? Chronic idiopathic thrombocytopenia 04/18/2020 Priority: Not Prioritized ??? Hemorrhagic shock 04/18/2020 Priority: Not Prioritized ??? screening for malformation using ultrasonics Priority: Not Prioritized ??? Screening, , for risk of pre-term labor Priority: Not Prioritized ??? Hepatitis C virus infection without hepatic coma 12/08/2019 Priority: Not Prioritized ??? Thrombocytopenia affecting 12/08/2019 Priority: Not Prioritized ??? Transaminitis 12/08/2019 Priority: Not Prioritized ??? Twin 12/08/2019 Priority: Not Prioritized ??? Polysubstance abuse 12/08/2019 Priority: Not Prioritized ??? Anemia 12/07/2019 Priority: Not Prioritized O: Vitals: 05/12/20 1020 BP: 146/95 Pulse: 80 Temp: 96.8 ??F (36 ??C) Weight: 134 lb (60.8 kg) Height: 5' 3 (1.6 m) Recent Labs Component Name 05/12/20 1033 PROTEINUA neg GLUCOSEUA neg KETONEUA neg A/P: Hillary Smalls is a 29 year old at Hillary Smalls is a s/p an emergent LTCS with general anesthesia due to NRFHTs and abruption complicated by di-di twins, insufficient care, thrombocytopenia, Hep C, Polysubstance abuse, hemorrhage, ICU admission for hypovolemic shock with acute hypoxic respirator failure. P ostpartum week # 3 1. PP week 3 follow up 1. Mood: stable no SI/HI 2. Babies: in custody of paternal uncle, reports they are doing well 3. Bleeding: light decreasing from last week, without resumed menses 4. Pap reviewed: records requested today from Dr. Bae 1. Patient reports last pap @ [facility], with suspected cervical cancer. No follow-up. 2. Pap collected today 5. Contraception: Desires BTL with DMPA as a bridge at next appointment. Needs BTL counseling and consent signed. Does not desire to sign form today due to childcare issues. 6. Has not resumed intercourse. 7. Incision: non tender to palpation, clean dry and well healing. 2. Hemorrhage 1. S/P transfusions 2. Hypovolemic shock with acute hypoxic respiratory failure 3. ICU admission 3. Thrombocytopenia 1. Followed by Hem/Onc. Next appointment tomorrow 05/13 2. CBC on 04/29 Hgb 11.3/Hct 36.2, Plt. 53 4. Polysubstance abuse 1. History of Vicodin, Heroin, and Methamphetamine use in the past 2. Reports last use prior to delivery 3. Reports continued tobacco use without desire for cessation 4. S/P Social Work consult while inpatient, twins are in custody of paternal uncle 6. Hepatitis C 1. Referred to GI 2. Quant 12/08/19 408603 3. 9 AST 34/ALT 29 7. Preeclampsia with SF 1. BP today 146/95 2. Asymptomatic today 3. Home BP's have been 140's/90's per patient 4. Given WEU precautions RTC 3 weeks for BLT paperwork, does not desire to fill out forms today due to childcare issues. Will continue to monitor BP's Precautions for Pre-eclampsia given. D/W Dr Karin Platt MD 05/12/2020 11:37 AM Associated attestation - Phuong Frazier MD - 05/12/2020 1:25 PM CDT MFM Attending I have reviewed Hillary Smalls who is a 29 year old female at 38w1d with the resident/FILM AND VIDEO EDITOR/Fellow. We have discussed her past history and reviewed all pertinent records and recent clinical course. 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 Desires BTL. No primary MAINTENANCE DEPARTMENT TECHNICIAN to f/u with. I have evaluated and examined her. I concur with the attached findings and assessments. Exam: Body mass index is 23.74 kg/m??. BP 146/95 Pulse 80 Temp 96.8 ??F (36 ??C) Ht 5' 3 (1.6 m) Wt 134 lb (60.8 kg) BMI 23.74 kg/m2 General: comfortable, alert, cooperative HEENT: normocephalic, atraumatic. Eyes PERRLA Pulmonary: respirations unlabored no cough or wheeze Neuro: cranial nerves 2-12 grossly intact, intact sensory and motor. I have the following additions/revision to the plan: None F/u for BP check and signing tubal paperwork in 3 weeks. Discussed 30 day wait period. Phuong Frazier MD MFM documented in this encounter Plan of Treatment Not on file documented as of this encounter Procedures Procedure Name Priority Date/Time Associated Diagnosis Comments PAP LB HPV HR DNA Routine 05/12/2020 12: 08 PM CDT follow-up (HCC) GLUCOSE PROTEIN KETONE URINE - POINT OF CAR Routine 05/12/2020 10:33 AM CDT follow-up (HCC) HCG URINE QUALITATIVE - POINT OF CARE Routine 05/12/2020 10:33 AM CDT follow-up (HCC) documented in this encounter Results * (ABNORMAL) PAP LB HPV HR DNA (05/12/2020 12:08 PM CDT) Diagnosis Comment(A) 05/19/2020 12:08 PM CDT [facility] ([facility]) Comment: EPITHELIAL CELL ABNORMALITY. ATYPICAL SQUAMOUS CELLS, CANNOT EXCLUDE HIGH-GRADE SQUAMOUS INTRAEPITHELIAL LESION (ASC-H). Recommendation Comment(A) 05/19/2020 12:08 PM CDT [facility]) Comment:Suggest colposcopy a nd biopsy if indicated. Specimen Adequacy Comment 020 12:08 PM CDT [facility]) Comment: Satisfactory for evaluation. ??Endocervical and/or squamous metaplastic cells (endocervical component) are present. Performed by Comment 05/19/2020 12:08 PM CDT [facility]) Comment:Kate Turner, Cyto technologist (ASCP) Electronically Signed by Comment 05/19/2020 12:08 PM CDT [facility]) Comment:Cyndee Howard MD, Pa thologist Comment . 05/19/2020 12:08 PM CDT [facility]) Pathologist Provided ICD10 Comment 05/19/2020 12:08 PM CDT [facility]) Comment:R87.611 Note Comment 05/19/2020 12:08 PM CDT [facility]) Comment: The Pap smear is a screening test designed to aid in the detection of premalignant and malignant conditions of the uterine cervix. ??It is not a diagnostic procedure and should not be used as the sole means of detecting cervical cancer. ??Both false-positive and false-negative reports do occur. Human papillomavirus High Risk Positive(A ) Negative 05/19/2020 12:08 PM CDT [facility] ([facility]) Comment: This nucleic acid amplification high-risk HPV test detects thirteen high-risk types (16,18,31,33,35,39,45,51,52,56,58,59,68) without differentiation. Pathology/Cytolo gy PART OF UTERINE CERVIX / Unknown Collection / Unknown 05/12/2020 12:08 PM CDT 05/12/2020 12:22 PM CDT Narrative [facility] ([facility]) - 05/19/2020 12:08 PM CDT Performed at: ??01 - [facility] [address] ??[id number] Battery Test Engineer: Stephanie Lemus MD, Phone: ??[phone] Performed at: ??02 - [facility] [address] ??[id number] Battery Test Engineer: Stephanie Lemus MD, Phone: ??[phone] Specimen Comment: Source.............Cervix;Endocervix Specimen Comment: No. of containers..01 ThinPrep Vial Tuan Platt MD LAB - PATHOLOGY/CYTO LOGY ORDERABLES [facility] ([facility]) [address] [place] [address] * HCG URINE QUALITATIVE - POINT OF CARE (05/12/2020 10:33 AM CDT) HCG Qual Urine Negative Negative [facility] QC Verified Yes Yes [facility] POC T TESTING Urine URINE / Unknown 05/12/2020 1 0:33 AM CDT Lola Olson MD LAB - POINT OF CA RE ORDERABLES Performing Organization Address City/[facility] Co de Phone Number [facility] [address] [place] [address] * GLUCOSE PROTEIN KETONE URINE - POINT OF CARE (05/12/2020 10:33 AM CDT) Glucose UA neg Negative [facility] Protein UA neg Negative [facility] Ketone UA neg Negative [facility] QC Verified Yes Yes [facility] POC T TESTING Urine URINE / Unknown 05/12/2020 1 0:33 AM CDT Lola Olson MD LAB - POINT OF CA RE ORDERABLES Performing Organization Address City/[facility] Co de Phone Number [facility] [address] [place] [address] documented in this encounter Visit Diagnoses Diagnosis follow-up (HCC)- Primary Routine follow-up documented in this encounter Care Teams Payroll Administrator Relationship Specialty Start Date End Date Alejandro Blevins MD [address] [place] [phone] PCP - General Family Medicine 12/07/19 documented as of this encounter
--- OUTSIDE RECORDS SUMMARY | 2024-07-11 05:36 | XMS_ITS | Encounter Summary ---
Author Organization [facility] Address [address] [facility] [place] [address] Care Team Providers Care Communications Professor Name Role Phone Alejandro Blevins MD Primary Care Provider +1- [phone] Reason for Visit * Reason Onset Date Comments Patient Requested Call 02/17/2021 Encounter Details Date Type Department Care Team (Late st Contact Info) Description 02/17/2021 Telephone [facility] [address] [place] [address] Yodit Yoon MD [address] [address] Patient Requested Call Social History Tobacco Use Types Packs/Day [...] Telephone Encounter - Yodit Yoon MD - 02/17/2021 11:52 AM CDT R3 Telephone Call Discussed with the patient having her IUD in place at the time of the LEEP. Discussed her two options with leaving the IUD in place or removing it before the procedure. The patient prefers to leave the IUD in place, knowing that the strings may be severed during the LEEP procedure. It is more important that all of the abnormal cells be removed rather than saving the strings. This may mean difficulty with removing the IUD in the future, including the possibility of needing a hysteroscopy to remove in the future. Confirmed that she will be coming to colpo clinic tomorrow for her LEEP. All questions answered. Yodit Yoon MD 02/17/2021 11:52 AM documented in this encounter Plan of Treatment Not on file documented as of this encounter Visit Diagnoses Not on filedocumented in this encounter Care Teams Communications Professor Relationship Specialty Start Date End Date Alejandro Blevins MD [address] [place] [phone] PCP - General Family Medicine 12/07/19 documented as of this encounter
--- OUTSIDE RECORDS SUMMARY | 2024-07-11 05:36 | XMS_ITS | Encounter Summary ---
Author Organization [facility] Address [address] [facility] [place] [address] Care Team Providers Care Boiler Mechanic Name Role Phone Alejandro Blevins MD Primary Care Provider [phone]- [phone] Reason for Visit * Reason Onset Date Comments Scheduling 05/19/2020 Encounter Details Date Type Department Care Team (Late st Contact Info) Description 05/19/2020 Telephone [facility] MATERNAL/ EVALUATION UNIT [facility]. [address] [place] [address] Rosario Jasso Scheduling Social History Tobacco Use [...] AM CDT documented as of this encounter Functional Status [...] * Telephone Encounter - Rosario Jasso - 05/19/2020 3:43 PM CDT Called patient to inform her of upcoming appointment with M. documented in this encounter Plan of Treatment Not on file documented as of this encounter Visit Diagnoses Not on filedocumented in this encounter Care Teams Boiler Mechanic Relationship Specialty Start Date End Date Alejandro Blevins MD [address] [place] [phone] PCP - General Family Medicine 12/07/19 documented as of this encounter
--- OUTSIDE RECORDS SUMMARY | 2024-07-11 05:36 | XMS_ITS | Encounter Summary ---
Author Organization [facility] Address [address] [facility] [place] [address] Care Team Providers Care Wildlife Officer Name Role Phone Alejandro Blevins MD Primary Care Provider +1- [phone] Reason for Visit * Reason Onset Date Comments Appointment 07/23/2020 Encounter Details Date Type Department Care Team (Late st Contact Info) Description 07/23/2020 Telephone [facility] MATERNAL/ EVALUATION UNIT [facility]. [address] [place] [address] Vivienne Quach Appointment Social History Tobacco Use Types Packs/Day Years [...] encounter Miscellaneous Notes * Telephone Encounter - Vivienne Quach - 07/23/2020 11:17 AM CST Called to reschedule the appointment, mom stated daughter was available and wasn't feeling good andwill call to reschedule her appointment. PERSON documented in this encounter Plan of Treatment Not on file documented as of this encounter Visit Diagnoses Not on filedocumented in this encounter Care Teams Wildlife Officer Relationship Specialty Start Date End Date Alejadnro Blevins MD [address] [place] [phone] PCP - General Family Medicine 12/07/19 documented as of this encounter
--- OUTSIDE RECORDS SUMMARY | 2024-07-11 05:36 | XMS_ITS | Encounter Summary ---
Author Organization [facility] Address [address] [facility] [place] [address] Care Team Providers Care Emt Driver Name Role Phone Alejandro Blevins MD Primary Care Provider +1- [phone] Reason for Visit * Reason Onset Date Comments Results 02/10/2021 Encounter Details Date Type Department Care Team (Late st Contact Info) Description 02/10/2021 Telephone [facility] MATERNAL/ EVALUATION UNIT [address] [place] [address]. [address] [place] [address] Chen Taylor, RN Results Social History Tobacco [...] Telephone Encounter - Chen Taylor RN - 02/10/2021 12:12 PM CDT Return call placed to patient Hillary Smalls. Telephone carrier message reading Voice mailbox is full and unable to leave message at this time. Drs. Diaz [employer] Car notified via [employer] secure chat of pt request to discuss her results. ----- Message from Cindy Lugo sent at 02/10/2021 11:38 AM CDT ----- Asking if her results are back from her biopsy. [phone] documented in this encounter Plan of Treatment Not on file documented as of this encounter Visit Diagnoses Not on filedocumented in this encounter Care Teams Emt Driver Relationship Specialty Start Date End Date Alejandro Blevins MD [address] [place] [phone] PCP - General Family Medicine 12/07/19 documented as of this encounter
--- OUTSIDE RECORDS SUMMARY | 2024-07-11 05:36 | XMS_ITS | Encounter Summary ---
Author Organization [facility] Address [address] [place] [address] Care Team Providers Care Setter Machine Name Role Phone Alejandro Blevins MD Primary Care Provider +1- [phone] Encounter Details Date Type Department Care Team (Latest Contact Info) Description 12/31/2020 Travel Social History Tobacco Use Types Packs/Day [...] on filedocumented in this encounter Care Teams Setter Machine Relationship Specialty Start Date End Date Alejandro Blevins MD [address] [place] [phone] PCP - General Family Medicine 12/07/19 documented as of this encounter
--- OUTSIDE RECORDS SUMMARY | 2024-07-11 05:36 | XMS_ITS | Clinical Summary ---
Author Organization [facility] Address [address] [place] [place] [address] Care Team Providers Care Pan Shaker Name Role Phone Alejandro Blevins MD Primary Care Provider [phone] Source Comments [facility],non-owned Affiliates and Associated Physician Practices is amultiple site organization consisting of ambulatory clinics and hospital sitesin [place], [place], [place] and [place]. This disclosure is being madepursuant to the Care Everywhere program and may not contain all information available regarding this patient. Last updated 18.[facility] Allergies Active Allergy Reactions Criticality Noted [...] migh t be different from the original. [employer] form completed. Diapers given. 06/02/2020 [...] immune) TDAP (7yrs+) 04/21/2020(Deferred: Patient Ref used) Family History Medical History Relation Name Comments None Known Brother None Known Father None Known Maternal Grandfather None Known Maternal Grandmother None Known Mother None Known Other None Known Paternal Grandfather None Known Paternal Grandmother None Known Sister Relation Name Status Comments Brother Father Maternal Grandfather Maternal Grandmother Mother Other Paternal Grandfather Paternal Grandmother Sister Social History Tobacco Use Types Packs/Day Years [...] Comments Blood Pressure 108/71 08/19/2021 11:05 AM STUDENT SERVICES REPRESENTATIVE Pulse 74 08/19/2021 11:05 AM STUDENT SERVICES REPRESENTATIVE Temperature 36.2 ??C (97.2 ??F) 06/02/2020 8:43 AM CS T Respiratory Rate 18 04/23/2020 12:00 AM CDT Oxygen Saturation 99% 04/23/2020 8:30 AM CDT Inhaled Oxygen Concentration 25% 04/19/2020 8 :22 AM CDT Weight 67.1 kg (148 lb) 01/14/2021 8:35 AM CDT Height 160 cm (5' 3 ) 05/12/2020 10:20 AM CDT Body Mass Index 26.22 05/12/2020 10:20 AM CDT Plan of Treatment Health Maintenance Due Date Last Done Comments PNEUMOCOCCAL VACCINE (1 of 2 - PCV) 1994 DTAP/TDAP/TD VACCINES (1 - Tdap) 2007 HEPATITIS B VACCINE (1 of 3 - 19+ 3-dose series) 2007 DEPRESSION SCREENING 07/25/2023 COVID-19 VACCINE (1 - 2023- season) 2024 INFLUENZA VACCINE (#1) 2024 PAP with HPV 08/19/2026 08/19/2021, 05/12/2020 ZOSTER VACCINE (1 of 2) 2038 HIV SCREENING Completed 04/17/2020, 12/19/2019 HEPATITIS C SCREENING Completed 05/01/2020 , 01/23/2020, 12/08/2019, Additional history exists HIB VACCINE Aged Out No longer eligi ble based on patient's age to complete this topic HPV VACCINE Aged Out No longer eligi ble based on patient's age to complete this topic MENINGOCOCCAL VACCINE Aged Out No rambo marquise eligible based on patient's age to complete this topic Procedures Procedure Name Priority Date/Time Associated Diagnosis Comments PAP IG LB+HPV APTIMA Routine 08/19/2021 11:34 AM STUDENT SERVICES REPRESENTATIVE High grade squamous intraepithelial lesion (HGSIL), grade 3 WIL, on biopsy of cervix HIV-1 HIV-2 ANTIBODY + HIV P24 AG PANEL STAT 04/17/2020 8:57 PM CDT HEPATITIS C RNA QUANTITATIVE Routine 12/08/2019 7:03 AM CDT Anemia, unspecified type from Last 3 Months or Most Recently Relevant to Health Maintenance Results * PAP IG LB+HPV APTIMA (08/19/2021 11:34 AM STUDENT SERVICES REPRESENTATIVE) Diagnosis Comment 08/22/2021 7:09 AM STUDENT SERVICES REPRESENTATIVE [facility] ([facility]) Comment:NEGATIVE FOR INTRAEP ITHELIAL LESION OR MALIGNANCY. Specimen Adequacy Comment 022 7:09 AM STUDENT SERVICES REPRESENTATIVE [facility] ([facility]) Comment: Satisfactory for evaluation. ??Endocervical and/or squamous metaplastic cells (endocervical component) are present. Performed by Comment 08/22/2021 7:09 AM STUDENT SERVICES REPRESENTATIVE [facility] ([facility]) Comment:Nella Montes, Associate Medical Director (ASCP) Comment . 08/22/2021 7:09 AM STUDENT SERVICES REPRESENTATIVE [facility] ([facility]) Note Comment 08/22/2021 7:09 AM STUDENT SERVICES REPRESENTATIVE [facility] ([facility]) Comment: The Pap smear is a screening test designed to aid in the detection of premalignant and malignant conditions of the uterine cervix. ??It is not a diagnostic procedure and should not be used as the sole means of detecting cervical cancer. ??Both false-positive and false-negative reports do occur. IGLBP CPT Code Automation Comment 08/22/2021 7:09 AM STUDENT SERVICES REPRESENTATIVE [facility] ([facility]) Comment: This liquid based ThinPrep(R) pap test was screened with the use of an image guided system. Human papillomavirus Aptima Negative Negative 08/22/2021 7:09 AM STUDENT SERVICES REPRESENTATIVE [facility] ([facility]) Comment: This nucleic acid amplification test detects fourteen high-risk HPV types (16,18,31,33,35,39,45,51,52,56,58,59,66,68) without differentiation. Pathology/Cytolo gy ENTIRE ENDOCERVIX / Unknown Collection / Unknown 08/19/2021 11:34 AM STUDENT SERVICES REPRESENTATIVE 08/19/2021 12:41 PM STUDENT SERVICES REPRESENTATIVE Narrative [facility] ([facility]) - 08/22/2021 7:09 AM STUDENT SERVICES REPRESENTATIVE Performed at: ??01 - [address] ??[id number] Livestock Feeder: Stephanie Lemus MD, Phone: ??[phone] Performed at: ??02 - [address] ??[id number] Livestock Feeder: Stephanie Lemus MD, Phone: ??[phone] Specimen Comment: No. of containers..01 ThinPrep Vial Adrienne Roth MD LAB - PATHOLOGY/CY TOLOGY ORDERABLES Performing Organization Address City/[facility]/ZIP Co de Phone Number [facility] ([facility]) [address] [place] [address] * HIV-1 HIV-2 ANTIBODY + HIV P24 AG PANEL (04/17/2020 8:57 PM CDT) HIV1/2 Ab + P24 Ag Non Reactive Non Reactive 04/17/2020 10:02 PM CDT [facility] Blood BLOOD SPECIMEN / Unknown Venipuncture / Unknown 04/17/2020 8:57 PM CDT 04/17/2020 9:09 PM CDT Narrative [facility] - 04/17/2020 10:02 PM CDT No Laboratory evidence of HIV infection. Mayuri Norton MD LAB - CHEMISTRY MIRI GO [facility] [address] [place] [address] * HEPATITIS C RNA QUANTITATIVE (12/08/2019 7:03 AM CDT) Hepatitis C Virus Quantitation [id number] IU/mL 12/19/2019 6:08 AM CDT [facility] ([facility]) Hepatitis C Virus Log 10 6.217 log10 IU/mL 12/19/2019 6:08 AM CDT [facility] ([facility]) Test Information Comment 12/19/19 6:08 AM CDT [facility] ([facility]) Comment:The quantitative ran ge of this assay is 15 IU/mL to 100 million IU/mL. Blood BLOOD SPECIMEN / Unknown Lab Venipuncture / Unknown 12/08/2019 7:03 AM CDT 12/08/2019 7:48 AM CDT Narrative [facility] ([facility]) - 12/19/2019 6:08 AM CDT Performed at: ??01 - [address] ??[id number] Livestock Feeder: Kiran Guerra MD, Phone: ??[phone] Pattie Castellon MD LAB - CHEMISTRY ORD ERABLES [facility] ([facility]) [address] [place] [address] from Last 3 Months or Most Recently Relevant to Health Maintenance Advance Directives * Full Code (Latest Code Status on File) Date Activated Date Inactivated Comments 04/18/2020 5:26 AM 04/23/2020 5:11 PM * Full Code Date Activated Date Inactivated Comments 04/17/2020 9:19 PM 04/18/2020 5:26 AM * Full Code Date Activated Date Inactivated Comments 12/08/2019 2:09 AM 12/09/2019 7:07 PM Care Teams Pan Shaker Relationship Specialty Start Date End Date Alejandro Blevins MD [address] [place] [address] PCP - General Family Medicine 12/07/19
--- OUTSIDE RECORDS SUMMARY | 2024-07-11 05:36 | XMS_ITS | Encounter Summary ---
Author Organization [facility] Address [address] [place] [address] Care Team Providers Care Hydroponics Worker Name Role Phone Alejandro Blevins MD Primary Care Provider [phone] Reason for Visit * Reason Comments Colposcopy Pap F/U Encounter Details Date Type Department Care Team (Latest Contact Info) Description 08/19/2021 10:15 AM HRIS COORDINATOR - 08/19/2021 11:59 PM HRIS COORDINATOR Hospital Encounter [facility] MATERNAL/ EVALUATION UNIT [address] [place] [address] Adrienne Roth MD [address] [place] [address] Discharge Disposition: Home or Self [...] Comments Blood Pressure 108/71 08/19/2021 11:05 AM HRIS COORDINATOR Pulse 74 08/19/2021 11:05 AM HRIS COORDINATOR Temperature - - Respiratory Rate - - [...] by mouth every 4 hours as needed amoxicillin-clavulanate (AUGMENTIN) 875-125 MG tablet Take 1,000 mg by mouth 3 times daily 03/25/2021 clindamycin (CLEOCIN) 300 MG capsule 01/12/2021 Cyanocobalamin 1000 MCG Take 1 tablet by mouth once daily 30 tablet 2 04/23/2020 docusate sodium (COLACE) 100 MG capsule Take 1 capsule by mouth 2 times daily 60 capsule 1 04/23/2020 folic acid (FOLVITE) 1 MG tablet Take 1 tablet by mouth once daily 30 tablet 2 04/23/2020 HYDROcodone-acetaminophen (NORCO) 10-325 MG tablet Take 750 tablets by mouth every 8 hours 02/24/2021 ibuprofen (MOTRIN) 600 MG tablet Take 1 [...] Progress Notes * Paris San RN - 08/19/2021 11:35 AM CST Hillary presents for follow up Pap today. No colposcopy performed. COORDINATOR * Adrienne Roth MD - 08/19/2021 11:08 AM CST PGY4 Progress Note S: Here for post LEEP follow-up. 02/18/21 LEEP with WIL III and negative margins. Her only issue is daily spotting since her LEEP but her Mirena IUD was placed 4 days prior to her LEEP so she is unsure if it's from the LEEP or IUD. O: Vitals: BP 108/71, RR 74 Exam: external genitalia within normal limits, vaginal mucosa well estrogenized, cervix/LEEP bed normal with no bleeding, IUD strings visualized, pap collected LEEP: Component Final Diagnosis Uterus, cervix, central, LEEP conization (A): - High-grade squamous intraepithelial lesion (HSIL); all margins negative for HSIL Uterus, cervix, anterior lip, LEEP conization (B): - No pathologic diagnosis (ectocervix only) Uterus, endocervix, curettage (C): - Mucin with very scant benign endocervical cells (see description) at 1834 A: s/p LEEP with WIL III and negative margins from 02/18/21. This pathology was again explained to the patient and she had no further questions. Plan: will call in 1 week with pap smear co-test results and next plan Discussed with Dr. Ira Bowman MD 08/19/2021 12:09 PM Attending Note I reviewed the history and physical exam findings with resident at the time of the visit. I have reviewed the chart. Please see above documentation for further details. I agree with the assessment and plan. Adrienne Roth MD COORDINATOR documented in this encounter Plan of Treatment Not on file documented as of this encounter Procedures Procedure Name Priority Date/Time Associated Diagnosis Comments PAP IG LB+HPV APTIMA Routine 08/19/2021 11:34 AM HRIS COORDINATOR High grade squamous intraepithelial lesion (HGSIL), grade 3 WIL, on biopsy of cervix documented in this encounter Results * PAP IG LB+HPV APTIMA (08/19/2021 11:34 AM HRIS COORDINATOR) Diagnosis Comment 08/22/2021 7:09 AM HRIS COORDINATOR [facility] ([facility]) Comment:NEGATIVE FOR INTRAEP ITHELIAL LESION OR MALIGNANCY. Specimen Adequacy Comment 022 7:09 AM HRIS COORDINATOR [facility] ([facility]) Comment: Satisfactory for evaluation. ??Endocervical and/or squamous metaplastic cells (endocervical component) are present. Performed by Comment 08/22/2021 7:09 AM HRIS COORDINATOR [facility] ([facility]) Comment:Nella Montes, Crm Specialist (ASCP) Comment . 08/22/2021 7:09 AM HRIS COORDINATOR [facility] ([facility]) Note Comment 08/22/2021 7:09 AM HRIS COORDINATOR [facility] ([facility]) Comment: The Pap smear is a screening test designed to aid in the detection of premalignant and malignant conditions of the uterine cervix. ??It is not a diagnostic procedure and should not be used as the sole means of detecting cervical cancer. ??Both false-positive and false-negative reports do occur. IGLBP CPT Code Automation Comment 08/22/2021 7:09 AM HRIS COORDINATOR [facility] ([facility]) Comment: This liquid based ThinPrep(R) pap test was screened with the use of an image guided system. Human papillomavirus Aptima Negative Negative 08/22/2021 7:09 AM HRIS COORDINATOR [facility] ([facility]) Comment: This nucleic acid amplification test detects fourteen high-risk HPV types (16,18,31,33,35,39,45,51,52,56,58,59,66,68) without differentiation. Pathology/Cytolo gy ENTIRE ENDOCERVIX / Unknown Collection / Unknown 08/19/2021 11:34 AM HRIS COORDINATOR 08/19/2021 12:41 PM HRIS COORDINATOR Narrative [facility] ([facility]) - 08/22/2021 7:09 AM HRIS COORDINATOR Performed at: ??01 - [address] [place] [id number] Forestry Worker: Stephanie Lemus MD, Phone: ??[phone] Performed at: ??02 - [address], [place] ??[id number] Forestry Worker: Stephanie Lemus MD, Phone: ??[phone] Specimen Comment: No. 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
--- OUTSIDE RECORDS SUMMARY | 2024-07-11 05:36 | XMS_ITS | Encounter Summary ---
Author Organization [facility] Address [address] [place] [address] Care Team Providers Care Electric Tripper Machine Operator Name Role Phone Alejandro Blevins MD Primary Care Provider [phone] Encounter Details Date Type Department Care Team (Latest Contact Info) Description 05/12/2020 Travel Social History Tobacco Use Types Packs/Day [...] on filedocumented in this encounter Care Teams Electric Tripper Machine Operator Relationship Specialty Start Date End Date Alejandro Blevins MD [address] [place] [phone] PCP - General Family Medicine 12/07/19 documented as of this encounter
--- OUTSIDE RECORDS SUMMARY | 2024-07-11 05:36 | XMS_ITS | Encounter Summary ---
Author Organization [facility] Address [address] [place] [address] Care Team Providers Care Sales Agent Fire Insurance Name Role Phone Alejandro Blevins MD Primary Care Provider [phone]- [phone] Encounter Details Date Type Department Care Team (Latest Contact Info) Description 01/14/2021 Travel Social History Tobacco Use Types Packs/Day [...] on filedocumented in this encounter Care Teams Sales Agent [employer] Insurance Relationship Specialty Start Date End Date Alejandro Blevins MD [address] [place] [phone] PCP - General Family Medicine 12/07/19 documented as of this encounter
--- OUTSIDE RECORDS SUMMARY | 2024-07-11 05:36 | XMS_ITS | Encounter Summary ---
Author Organization [facility] Address [address] [place] [address] Care Team Providers Care Catering Cook Name Role Phone Alejandro Blevins MD Primary Care Provider [phone]- [phone] Reason for Visit * Reason Onset Date Comments Scheduling 02/26/2021 Encounter Details Date Type Department Care Team (Late st Contact Info) Description 02/26/2021 Telephone [facility] MATERNAL/ EVALUATION UNIT [facility] [place] [address] Tiffanie Whitney Scheduling Social History Tobacco Use Types Packs/Day [...] encounter Miscellaneous Notes * Telephone Encounter - Tiffanie Whitney - 02/26/2021 10:33 AM CDT Called the number in Epic left a VM with the patients upcoming COLPO appointment date and time. documented in this encounter Plan of Treatment Not on file documented as of this encounter Visit Diagnoses Not on filedocumented in this encounter Care Teams Catering Cook Relationship Specialty Start Date End Date Alejandro Blevins MD [address] [place] [address] PCP - General Family Medicine 12/07/19 documented as of this encounter
--- OUTSIDE RECORDS SUMMARY | 2024-07-11 05:36 | XMS_ITS | Encounter Summary ---
Author Organization [facility] Address [address] [place] [address] Care Team Providers Care Roof Cement And Paint Maker Name Role Phone Alejandro Blevins MD Primary Care Provider [phone] Reason for Visit * Reason Onset Date Comments Results 05/19/2020 Encounter Details Date Type Department Care Team (Late st Contact Info) Description 05/19/[address] [facility] MATERNAL/ EVALUATION UNIT [address] [place] [address] Tuan Platt MD [address] [place] [address] Results Social History Tobacco Use Types Packs/Day [...] encounter Miscellaneous Notes * Telephone Encounter - Tuan Platt MD - 05/19/2020 12:22 PM CDT Called patient for abnormal PAP result Recommend Colposcopy. All questions addressed Tuan Platt MD 05/19/2020 12:22 PM documented in this encounter Plan of Treatment Not on file documented as of this encounter Visit Diagnoses Not on filedocumented in this encounter Care Teams Roof Cement And Paint Maker Relationship Specialty Start Date End Date Alejandro Blevins MD [address] [place] [phone] PCP - General Family Medicine 12/07/19 documented as of this encounter
--- OUTSIDE RECORDS SUMMARY | 2024-07-11 05:36 | XMS_ITS | Encounter Summary ---
Author Organization [facility] Address [address] [address] Care Team Providers Care Laboratory Mechanical Technician Name Role Phone Alejandro Blevins MD Primary Care Provider [phone] [phone] Encounter Details Date Type Department Care Team (Latest Contact Info) Description 05/01/2020 Travel Social History Tobacco Use Types Packs/Day [...] have Coronavirus / COVID-19? Unable to assess 05/01/2020 12:43 PM CDT documented as of this encounter Functional [...] on filedocumented in this encounter Care Teams Laboratory Mechanical Technician Relationship Specialty Start Date End Date Alejandro Blevins MD [address] [place] [phone] PCP - General Family Medicine 12/07/19 documented as of this encounter
--- OUTSIDE RECORDS SUMMARY | 2024-07-11 05:36 | XMS_ITS | Encounter Summary ---
Author Organization [facility] Address [address] [place] [place] [address] Care Team Providers Care Hook Loader Name Role Phone Alejandro Blevins MD Primary Care Provider [phone]- [phone] Reason for Visit * Reason Comments Colposcopy Encounter Details Date Type Department Care Team (Latest Contact Info) Description 02/04/2021 9:45 AM CDT - 02/04/2021 11:59 PM CDT Hospital Encounter [facility] MATERNAL/ EVALUATION UNIT [address] [facility] [place] [address] Adrienne Roth MD [address] [facility] [address] [place] [address] Discharge Disposition: Home or Self [...] Sign Reading Time Taken Comments Blood Pressure 115/74 02/04/2021 10:15 AM CDT Pulse 79 02/04/2021 10:15 AM CDT Temperature - - Respiratory Rate [...] * Patient Instructions* Yodit Yoon MD - 02/04/2021 10:40 AM CDT Gynecology Clinic Phone: [phone] AFTER CARE INSTRUCTIONS: COLPOSCOPY After the procedure, you may have menstrual-like cramps. They may begin immediately and could last for several hours. Ibuprofen (motrin or advil) will help relieve these pains. Additionally, you may notice a vaginal discharge. The color may be brown, black, red, or yellow. This is normal. It is important that you do not have sexual intercourse, douche, or use tampons for 1 week after your appointment. These could cause infection or bleeding while your cervix is healing. CALL THE DOCTOR if you experience severe pain, bleeding more than a period, develop a fever greaterthan or equal to 100.5 degrees, or develop a foul smelling vaginal discharge. You can usually reachone of your doctors by calling the clinic Tuesday through Tuesday, 9:00 am to 4:00 pm. If you cannot reach your doctors there, call the wire saw operator at [facility] and ask for the CROSS COUNTRY/TRACK AND FIELD COACH resident hr business partner consultant. documented in this encounter Medications at Time [...] Progress Notes * Paris San RN - 02/04/2021 11:29 AM CDT Patient presents for colposcopy. Verbal and written consent given. Time Out completed at 1026. Three specimens obtained, labeled and walked to lab by this RN. Patient tolerated the procedure well. Staff present in room: Car Corado and this RN. Patient discharged to home with written instructions, v/u stated. documented in this encounter Procedure Notes * Adrienne Roth MD - 02/03/2021 10:51 PM CDTProcedure(s): HP COLPOSCOPY BX AND CURR ENDO CERV Colposcopy Note Hillary Smalls 30 year old presents to colposcopy clinic today for abnormal pap smear. Procedure reviewed with patient, risks of bleeding and infection discussed and patient consents to procedure. LMP: 01/13-01/20 Contraception: None currently, plan for IUD placement by primary CROSS COUNTRY/TRACK AND FIELD COACH Dr. Valdivia (Vitor Peterson) Referring MD: DAMION Tobacco: Yes, 1/2 PPD, discussed decreasing usage and effects on HPV clearance Medications: None H/o Gardasil: No, recommended for patient to get vaccination series Most recent pap/pathology Date: 05/12/20 Results: ASC-H/+ HR HPV Recent Labs Component Name 05/12/20 1033 HCGURINE Negative Pertinent history: Abnormal pap smear, no prior colposcopy Findings: See Image SCJ seen: yes Biopsies taken: Yes, 2 biopsies were taken, at 6 o'clock and 12 o'clock Clinical impression: High grade changes and low grade changes present Pt tolerated procedure well and good hemostasis noted at end of procedure. Dr. Roth present for entire procedure. Plan: Call pt with results to formulate plan. Pt contact info: [phone] Yodit Yoon MD 02/03/2021 10:51 PM ATTENDING I was present and personally performed a portion of the colposcopy. See resident note for full details. I agree with the assessment and plan of care. Will contact pt with results and formulate a plan. Clinical findings c/w high grade changes Await biopsy results Adrienne Roth M.D. documented in this encounter Plan of Treatment Not on file documented as of this encounter Procedures Procedure Name Priority Date/Time Associated Diagnosis Comments PATHOLOGY TISSUE EXAM (STL) Routine 02/04/2021 2:19 PM CDT Atypical squamous cells cannot exclude high grade squamous intraepithelial lesion on cytologic smear of cervix (ASC-H) HCG URINE QUALITATIVE - POCT (IP) INTERFACED Routine 02/04/2021 10:01 AM CDT documented in this encounter Results * PATHOLOGY TISSUE EXAM (STL) (02/04/2021 2:19 PM CDT) Case Report Surgical Pathology Report ? Case: [id number] ? Authorizing Provider: ??Adrienne Roth MD ?Collected: ? 02/04/2021 02:19 PM ? Ordering Location: ? [facility] MATERNAL/ ?Received: ?02/04/2021 02:59 PM ? EVALUATION UNIT ? Pathologist: ? Phuong Hernadez, ? Specimens: ?? A) - Cervix, 6 o'clock ? B) - Cervix, 12 o'clock ? C) - Endocervix Curettings, ECC ? 02/05/2021 2:56 PM CDT [facility] Final Diagnosis Uterus, cervix, 6 o'clock, biopsy (A) - High-grade squamous intraepithelial lesion (HSIL, CIN3) Uterus, cervix, 12 o'clock, biopsy (B) - High-grade squamous intraepithelial lesion (HSIL, CIN3) Uterus, endocervix, curettage (C) - Scant, detached fragments of high-grade squamous intraepithelial lesion (HSIL) - Fragments of unremarkable endocervical epithelium 02/05/2021 2:56 PM [facility] Clinical History The patient is a 30-year-old woman with atypical squamous cells - cannot rule out high-grade squamous intraepithelial lesion and positive high-risk HPV on pap test. Operative procedure/findings: colposcopy with biopsies and endocervical curettage; mild aceto-white changes with low-grade changes as well as high-grade changes of anterior cervix and 6 o'clock position. 02/05/2021 2:56 PM [facility] Gross Description The requisition and specimen are identified with patient's name and date of . Received in formalin, specimen A, cervix are multiple fragments of bradford-jean-baptiste soft tissue, 0.7 x 0.2 x 0.1 cm. Entirely submitted in cassette A1. Received in formalin, specimen B, cervix are 2 white-jean-baptiste soft tissue fragments, 0.2 x 0.1 x 0.1 cm and 0.3 x 0.1 x 0.1 cm. Entirely submitted in cassette B1. Received in formalin, specimen C, endocervix are multiple fragments red-jean-baptiste soft tissue and blood clot, 1.5 x 1.2 x 0.2 cm. Entirely submitted in cassette C1. LJ 02/05/2021 2:56 PM [facility] Microscopic Description Microscopic examination substantiates the final diagnosis. 02/05/2021 2:56 PM [facility] Disclaimer All histochemical and/or immunohistochemical results are interpreted with controls that demonstrate appropriate staining reactions before reporting results. Note on use of immunocytochemistry reagents: This test was developed and its performance characteristic determined by [facility], Department of Laboratory Medicine. It has [...] tissues. Results should be interpreted with caution. 02/05/2021 2:56 PM CDT [facility] Embedded Images 02/05/2021 2:56 PM CDT [facility] Pathology/Cytology PART OF UTERINE CERVIX / Unknown Collection / Unknown 02/04/2021 2:19 PM CDT 02/04/2021 2:59 PM CDT Miscellaneous samples (specimen) PART OF UTERINE CERVIX / Unknown 02/04/2021 2:19 PM CDT 02/04/2021 2:59 PM CDT Miscellaneous samples (specimen) CURETTINGS / Unknown 02/04/2021 2:19 PM CDT 02/04/2021 2:59 PM CDT Adrienne Roth MD LAB - PATHOLOGY/CY TOLOGY ORDERABLES [facility] [address] [place], [place] [id number] * HCG URINE QUALITATIVE - POCT (IP) INTERFACED (02/04/2021 10:01 AM CDT) HCG Qual Urine Negative Negative 02/04/2021 10:07 AM CDT [facility] Urine URINE / Unknown 02/04/2021 1 0:01 AM CDT 02/04/2021 10:07 AM CDT Adrienne Roth MD LAB - POINT OF CAR E ORDERABLES [facility] [address] [place] [id number] documented in this encounter Visit Diagnoses Diagnosis Pap smear of vagina with ASC-H- Primary Papanicolaou smear of vagina with atypical squamous cells cannot exclude high grade squamous intraepithelial lesion (ASC-H) Atypical squamous cells cannot exclude high grade squamous intraepithelial lesion on cytologic smear of cervix (ASC-H) Papanicolaou smear of cervix with atypical squamous cells cannot exclude high grade squamous intraepithelial lesion (ASC-H) documented in this encounter Care Teams Hook Loader Relationship Specialty Start Date End Date Alejandro Blevins MD [address] [place] [address] PCP - General Family Medicine 12/07/19 documented as of this encounter
--- OUTSIDE RECORDS SUMMARY | 2024-07-11 05:36 | XMS_ITS | Encounter Summary ---
Author Organization [facility] Address [address] [place] [address] Care Team Providers Care Welding Supervisor Name Role Phone Alejandro Blevins MD Primary Care Provider [phone]- [phone] Reason for Visit * Reason Comments Care 04/18/20; C/S; boy,gi rl; bottle Encounter Details Date Type Department Care Team (Latest Contact Info) Description 05/01/2020 8:20 AM CDT - 05/01/2020 11:59 PM CDT Hospital Encounter [facility] MATERNAL/ EVALUATION UNIT [facility] [address] Mitzy Ignacio, INJECTION MOLD TECHNICIAN-GENETIC TECHNOLOGIST [address] [place] [id number] Discharge Disposition: Home or Self Care Social [...] PM CDT documented as of this encounter Last Filed Vital Signs Vital Sign Reading Time Taken Comments Blood Pressure 136/90 05/01/2020 10:51 AM CDT Pulse 88 05/01/2020 8:55 AM CDT Temperature 36.3 ??C (97.3 ??F) 05/01/2020 8:55 AM CD T Respiratory Rate - - Oxygen Saturation - - Inhaled Oxygen Concentration - - Weight 63 kg (139 lb) 05/01/2020 8:55 AM CDT Height - - Body Mass Index 25.42 04/23/2020 4:55 AM CDT documented in this encounter Functional [...] as of this encounter Progress Notes * Mitzy Ignacio, INJECTION MOLD TECHNICIAN-GENETIC TECHNOLOGIST - 05/01/2020 8:20 AM CDT [facility] Clinic Note Subjective: Patient is here for a BP and incision check. Patient without complaints today. She states that her mood has been okay . She feels more tired than usual and states that she has noticed increased irritability at times. Denies SI/HI. EPDS 1. Lochia is light, without resumed menses. Her babies are currently in the custody of paternal uncle. Patient reports that she does not yet have supervised visiting privileges, but states she is able to video chat. Reports that babies are doing well. Plans BTL for contraception with DMPA as a bridge until procedure. Patient desires to complete BTLconsent and DMPA at next visit. Has not resumed sexual activity. Denies chest pain, SOB, or leg pain. Denies lightheadedness or dizziness. Reports continued intermittent HAs which she states are normal for her. Typically resolve spontaneously. Denies TRACEY at this time. Was seen yesterday for an opthalmology appointment for new glasses. Denies visual changes or RUQ pain. She reports that she hasn't used meth Or any other substance since before her delivery. She is agreeable to checking her blood pressures at home. She is being followed by hematology and is getting repeat labs with them tomorrow.She notes that her program instructor wanted approval from us if she could have steroids if needed. Her was complicated by: Patient Active Problem List Diagnosis Date Noted [...] Prioritized ??? Anemia 12/07/2019 Priority: Not Prioritized Objective: BP 136/90 Pulse 88 Temp 97.3 ??F (36.3 ??C) (Temporal) Wt 139 lb (63 kg) BMI 25.42 kg/m2 Overall: Alert and oriented x3 with no apparent signs of distress Heart: RRR, S1, S2 Lungs: Clear to auscultation bilaterally Abdomen: Soft and non tender, + bowel sounds Incision: Clean dry and intact with edges well approximated. There are no signs of infection, no drainage noted, no erythema, no edema noted. Pelvic: deferred Extremities: WNL, no edema, normal size & shape. Negative Dom's sign Pap reviewed: will attempt to get records from Dr. Bae Assessment/Plan: Hillary Smalls is a s/p an emergent LTCS with general anesthesia due to NRFHTs and abruption complicated by di-di twins, insufficient care, thrombocytopenia, Hep C, Polysubstance abuse, hemorrhage, ICU admission for hypovolemic shock with acute hypoxic respirator failure. P ostpartum week # 2 1. PP week 2 follow up 1. Mood: okay , denies SI/HI. 2. Babies: in custody of paternal uncle, reports they are doing well 3. Bleeding: light, without resumed menses 4. Pap reviewed: records requested today from Dr. Bae 1. Patient reports last pap @ [facility], with suspected cervical cancer. No follow-up. 2. Will plan to repeat pap at 6 wk follow-up visit. 5. Contraception: Desires BTL with DMPA as a bridge at next appointment. Needs BTL counseling and consent signed. 6. Has not resumed intercourse. 2. Hemorrhage 1. S/P transfusions 2. Hypovolemic shock with acute hypoxic respiratory failure 3. ICU admission 3. Thrombocytopenia 1. Followed by Hem/Onc. 2. Next appointment 05/02 with more labs 3. CBC on 04/29 Hgb 11.3/Hct 36.2, Plt. 53 4. Given letter to give to program instructor that okays steroids for low platelets 4. Polysubstance abuse 1. History of Vicodin, Heroin, and Methamphetamine use in the past 2. Reports last use prior to delivery 3. Reports continued tobacco use without desire for cessation 4. S/P Social Work consult while inpatient, twins are in custody of paternal uncle 6. Hepatitis C 1. Referred to GI, order placed today 2. Quant 12/08/19 [id number] 3. 9 AST 34/ALT 29 7. Preeclampsia with SF 1. BP today 142/93, Repeat manual 148/106 and 136/90 2. Asymptomatic today 3. Given home BP cuff, reviewed parameters and WEU precautions 4. Not currently on any medications 8. Limited PNC 1. 2 visits this 9. Education: Signs and symptoms of PP depression, infection, care of the incision, and when to return to clinic. RTC in 1 week for BP check on [facility] resident schedule Mitzy Ignacio APRN-GENETIC TECHNOLOGIST 05/01/2020 11:[address] Mota * Letty Villanueva RN - 05/01/2020 8:20 AM CDT BP cuff order form completed and faxed to [facility]. Fax receipt received. Pt provided with BP cuff. * Marbella Valdovinos - 05/01/2020 8:20 AM CDT I have received a referral for this patient for GI. I have completed the form for [facility], the office of Dr. Lavon Alcantara will contact the patient. The referral form has been completed and the information requested has been faxed to [phone] documented in this encounter Plan of Treatment Not on file documented as of this encounter Visit Diagnoses Diagnosis Acute hepatitis C virus infection without hepatic coma- Primary Encounter for routine follow-up (HCC) Routine follow-up documented in this encounter Care Teams Welding Supervisor Relationship Specialty Start Date End Date Alejandro Blevins MD [address] [place] [phone] PCP - General Family Medicine 12/07/19 documented as of this encounter
--- OUTSIDE RECORDS SUMMARY | 2024-07-11 05:36 | XMS_ITS | Encounter Summary ---
Author Organization [facility] Address [address] [place] [address] Care Team Providers Care Concrete Stone Fabricator Name Role Phone Alejandro Blevins MD Primary Care Provider [phone] Encounter Details Date Type Department Care Team (Latest Contact Info) Description 02/18/2021 Travel Social History Tobacco Use Types Packs/Day [...] on filedocumented in this encounter Care Teams Concrete Stone Fabricator Relationship Specialty Start Date End Date Alejandro Blevins MD [address] [place] [address] PCP - General Family Medicine 12/07/19 documented as of this encounter
--- OUTSIDE RECORDS SUMMARY | 2024-07-11 05:36 | XMS_ITS | Encounter Summary ---
Author Organization [facility] Address [address] [place] [address] Care Team Providers Care Car Audio Installer Name Role Phone Alejandro Blevins MD Primary Care Provider [phone]- [phone] Reason for Visit * Reason Onset Date Comments Scheduling 06/24/2020 Encounter Details Date Type Department Care Team (Late st Contact Info) Description 06/24/2020 Telephone [facility] MATERNAL/ EVALUATION UNIT [facility] [facility] [place] [address] Rosario Jasso Scheduling Social History Tobacco Use [...] COVID-19? No / Unsure 06/02/2020 8:22 AM ELECTRICIAN SHIP documented as of this encounter Functional Status [...] * Telephone Encounter - Rosario Jasso - 06/24/2020 3:36 PM CST Patient called to reschedule appointment with MFM. Patient was made aware of our visitor policy andmask requirement. TRICIAN SHIP documented in this encounter Plan of Treatment Not on file documented as of this encounter Visit Diagnoses Not on filedocumented in this encounter Care Teams Car Audio Installer Relationship Specialty Start Date End Date Alejandro Blevins MD [address] [place] [phone] PCP - General Family Medicine 12/07/19 documented as of this encounter
--- OUTSIDE RECORDS SUMMARY | 2024-07-11 05:36 | XMS_ITS | Encounter Summary ---
Author Organization [facility] Address [address] [place] [address] Care Team Providers Care Airport Skilled Maintenance Supervisor Name Role Phone Alejandro Blevins MD Primary Care Provider [phone]- [phone] Encounter Details Date Type Department Care Team (Late st Contact Info) Description 01/15/2021 Orders Only [facility] MATERNAL/ EVALUATION UNIT [address] [facility] [place] [address] Fozia Arreola MD [address] [facility] [address] [place] [address] Social History Tobacco Use Types Packs/Day Years [...] on filedocumented in this encounter Care Teams Airport Skilled Maintenance Supervisor Relationship Specialty Start Date End Date Alejandro Blevins MD [address] [place] [phone] PCP - General Family Medicine 12/07/19 documented as of this encounter
--- OUTSIDE RECORDS SUMMARY | 2024-07-11 05:36 | XMS_ITS | Encounter Summary ---
Author Organization [facility] Address [address] [place] [address] Care Team Providers Care Dimensional Engineer Name Role Phone Alejandro Blevins MD Primary Care Provider [phone] Reason for Visit * Reason Onset Date Comments Returned Call 02/10/2021 Encounter Details Date Type Department Care Team (Late st Contact Info) Description 02/10/2021 Telephone [facility] MATERNAL/ EVALUATION UNIT [facility]. [address] [place] [address] Chen Taylor, RN Returned Call Social History Tobacco Use Types Packs/Day [...] Encounter - Chen Taylor RN - 02/10/2021 2:52 PM CDT Call received from pt Hillary Smalls. Informed pt that biopsy results will need to be discussed with the providers. Drs. Diaz & Car have been previously notified to contact her to discuss her results. documented in this encounter Plan of Treatment Not on file documented as of this encounter Visit Diagnoses Not on filedocumented in this encounter Care Teams Dimensional Engineer Relationship Specialty Start Date End Date Alejandro Blevins MD [address] [place] [phone] PCP - General Family Medicine 12/07/19 documented as of this encounter
--- OUTSIDE RECORDS SUMMARY | 2024-07-11 05:38 | XMS_ITS | Encounter Summary ---
Author Organization [facility] Address [address] [place] [address] Care Team Providers Care Multicut Line Operator Name Role Phone Alejandro Blevins MD Primary Care Provider [phone] Reason for Visit * Reason Comments Ultrasound Encounter Details Date Type Department Care Team (Late st Contact Info) Description 01/23/2020 1:05 PM CDT - 01/23/2020 11:59 PM CDT Hospital Encounter [facility] MATERNAL/ EVALUATION UNIT [address] [place] [address] Trang, Machelle Hernandez MD [address] [place] [address] Discharge Disposition: Home or Self Care Social History Tobacco Use Types Packs/Day Years Used Date Smoking Tobacco: Some Days Cigarettes 0.5 20 Started: 07/2004 Smokeless Tobacco: Never Alcohol Use Standard Drinks/Week Comments Not Currently 0 (1 standard drink = 0.6 oz pur e alcohol) Comments Yes Sex and Gender Information Value Date Recorded Sex Assigned at Not on file Gender Identity Not on file Sexual Orientation Not on file COVID-19 Exposure Response Date Recorded In the last month, have you been in contact with someone who was confirmed or suspected to have Coronavirus / COVID-19? No / Unsure 01/23/2020 1:04 PM CDT documented as of this encounter Functional Status Functional Status Response Date of Assess ment Is person deaf or have serious hearing difficult y? No 12/07/2019 Is person blind or have serious difficulty seein g? Yes 12/07/2019 Does person have serious dif ficulty walking/climbing stairs? No 12/07/2019 Does person have difficulty dressing/bathing? No 12/07/2019 Does person have difficulty doing errands alone? No 12/07/2019 Cognitive Status Response Date of Assessm ent Does person have difficulty concentrating/remembering/making decisions? No 12/07/2019 documented as of this encounter Medications at Time of Discharge Medication Sig Dispensed Refills Start Date End Date calcium carbonate (TUMS) 500 MG chew tablet Take 1 tablet by mouth every 2 hours as needed for Heartburn 60 tablet 3 01/23/2020 01/14/2021 cyanocobalamin 1000 MCG Take 1 tablet by mouth once daily 30 tablet 2 12/10/2019 04/23/2020 ferrous sulfate 325 (65 FE) MG tablet Take 1 tablet by mouth 2 times daily with morning and evening meal 60 tablet 5 01/23/2020 04/23/2020 ferrous sulfate 325 (65 FE) MG tablet Take 1 tablet by mouth once daily 100 tablet 12/09/2019 04/23/2020 folic acid (FOLVITE) 1 MG tablet Take 1 tablet by mouth once daily 30 tablet 3 01/23/2020 04/23/2020 folic acid (FOLVITE) 1 MG tablet Take 1 tablet by mouth once daily 30 tablet 2 12/09/2019 04/23/2020 nitrofurantoin monohyd macro crystals (MACROBID) 100 MG capsuleIndications:Ane favian, unspecified type Take 1 capsule by mouth 2 times daily with morning and evening meal 8 capsule 12/09/2019 01/24/2020 Vit-Fe Fumarate-FA ( PLUS) 27-1 MG tablet Take 1 tablet by mouth once daily 30 tablet 5 01/23/2020 01/15/2021 documented as of this encounter Plan of Treatment Not on file documented as of this encounter Procedures Procedure Name Priority Date/Time Associated Diagnosis Comments SONOGRAM - COMPLETE Routine 01/23/2020 2 :48 PM CDT Evaluate anatomy not seen on prior sonogram documented in this encounter Results * SONOGRAM - COMPLETE (01/23/2020 2:48 PM CDT) Anatomical Region Laterality Modality Other 01/23/2020 2:48 PM CDT Narrative 01/23/2020 4:21 PM CDT ? [facility] ?PHONE: ??FAX: FETUS A Pat. Name: ?HILLARY SMALLS Pat. No: ?[id number] Study Date: ?? 01/23/2020 ??2:48pm , Age: ? 1990, 29 Pregnancies: ?? 4, Para 2, Ab 1 Height: ? 63 in Weight: ? 117 lb LMP: ?Unknown GA by Base: ?? 25w6d ?? FABIAN: 05/01/2020 GA by US: ? 25w2d ?? FABIAN: 05/05/2020 GA Selected: ??25w6d (From [facility]) FABIAN: ?05/01/2020 Referring MD: Edgard, , [facility] Taxi Servicer: ??Cintia Messina RDMS, RVT CPT4: ? 82844 [phone] BMI: ?20.72 Hist/Ind: ? DC/DA Twins ? Anatomy Screen ?Tobacco Use ?Marijuana/Methamphetamine ?use in early MEASUREMENTS & AGE ? GROWTH EVALUATION Measurement ??GA ? Range ? Srce %for GA Ratios ----- ---- ------- BPD ??6.1 cm 24w5d (18f2b-45f8l) Hadl BPD 9% FL/BPD 0.75 (0.71 - 0.87) HC ??23.0 cm 25w0d (58i6h-05l8p) Hadl HC ??7% FL/AC ??0.21 (0.20 - 0.24) AC ??21.7 cm 26w1d (91x1q-98s5j) Hadl AC ??53% HC/AC ??1.06 (1.01 - 1.20) FL ?? 4.5 cm 25w0d (52r2d-41f2q) Hadl FL ??15% CI ? 0.74 (0.70 - 0.86) HL ?? 4.4 cm 26w1d (47w5a-59h6d) Dontae HL ??55% GA for sonogram 25w2d (46d2y-66c1x) ?? Weight Estimate: based on (BPD,HC,AC,FL) Avg [...] ??01/23/2020 04:18pm FETUS B Pat. Name: ?HILLARY SMALLS. No: ?[id number] Study Date: ?? 01/23/2020 ??2:48pm , Age: ? 1990, 29 Pregnancies: ?? 4, Para 2, Ab 1 Height: ? 63 in Weight: ? 117 lb LMP: ?Unknown GA by Base: ?? 25w6d ?? FABIAN: 05/01/2020 GA by US: ? 25w1d ?? FABIAN: 05/06/2020 GA Selected: ??25w6d (From [facility]) FABIAN: ?05/01/2020 Referring MD: MD Edgard, [facility] Taxi Servicer: ??Cintia Messina RDMS, RVT CPT4: ? 44880 [phone] Hist/Ind: ? DC/DA Twins ? Anatomy Screen ?Tobacco Use ?Marijuana/Methamphetamine ?use in early MEASUREMENTS & AGE ? GROWTH EVALUATION Measurement ??GA ? Range ? Srce %for GA Ratios ----- ---- ------- BPD ??5.9 cm 24w0d (11q3p-15l2p) Hadl BPD 2% FL/BPD 0.77 (0.71 - 0.87) HC ??22.4 cm 24w3d (29w0m-00h0g) Hadl HC ??2% FL/AC ??0.20 (0.20 - 0.24) AC ??22.7 cm 27w0d (26k6u-11l4i) Hadl AC ??78% HC/AC ??0.99 (1.01 - 1.20* FL ?? 4.5 cm 25w0d (26h4f-25c8i) Hadl FL ??15% CI ? 0.74 (0.70 - 0.86) HL ?? 4.2 cm 25w1d (95j6r-35a1f) Dontae HL ??38% GA for sonogram 25w1d (74g4b-49d9q) ?? Weight Estimate: based on (BPD,HC,AC,FL) Avg ?Weight: 866 gm (740-993gm) Hadloc ? : 1lbs, 14oz ? Normal: 889 gm (667- 4766gm) Hadlo ? Wt% ? 42% for 25w6d [...] <Electronic Signature> ??01/23/2020 04:18pm Walter Mota MD M ORDERABLES documented in this encounter Visit Diagnoses Diagnosis Evaluate anatomy not seen on prior sonogram Encounter for routine screening for malformation using ultrasonics documented in this encounter Care Teams Multicut Line Operator Relationship Specialty Start Date End Date Alejandro Blevins MD [address] [place] [phone] PCP - General Family Medicine 12/07/19 documented as of this encounter
--- OUTSIDE RECORDS SUMMARY | 2024-07-11 05:38 | XMS_ITS | Encounter Summary ---
Author Organization [facility] Address [address] [place] [address] Care Team Providers Care Scoreboard Operator Name Role Phone Alejandro Blevins MD Primary Care Provider [phone] Reason for Visit * Reason Onset Date Comments Pre Appointment Management 12/18/2019 Encounter Details Date Type Department Care Team (Late st Contact Info) Description 12/18/2019 Telephone [facility] MATERNAL/ EVALUATION UNIT [address] [place] [address] Homa Cook, VISHNU Pre Appointment Management Social History Tobacco Use [...] have Coronavirus / COVID-19? Unable to assess 12/11/2019 10:21 AM CDT documented as of this encounter [...] No 12/07/2019 documented as of this encounter Miscellaneous Notes * Telephone Encounter - Homa Cook RDMS - 12/18/2019 11:39 AM CDT Message left on voicemail informing patient of no visitor policy for outpatient appointments due toCOVID 19 pandemic. Patient also instructed to call before coming to appointment if she has fever, cough, shortness of breath, nausea, vomiting, diarrhea, loss of smell or taste, or has been around anyone with these symptoms. Also notified her we will be doing screening at the door. Left callback [phone]. documented in this encounter Plan of Treatment Not on file documented as of this encounter Visit Diagnoses Not on filedocumented in this encounter Care Teams Scoreboard Operator Relationship Specialty Start Date End Date Alejandro Blevins MD [address] [place] [phone] PCP - General Family Medicine 12/07/19 documented as of this encounter
--- OUTSIDE RECORDS SUMMARY | 2024-07-11 05:38 | XMS_ITS | Encounter Summary ---
Author Organization [facility] Address [address] [place] [address] Care Team Providers Care Supervisor Industrial [employer] Name Role Phone Alejandro Blevins MD Primary Care Provider [phone] Reason for Visit * Reason Comments Vaginal Bleeding * Auth/Cert Specialty Diagnoses / Procedures Referred By Contac t Referred To Contact Referral ID Status Reason Start Date Expiration Date Visits Re quested Visits Authorized [id number] 1 1 Encounter Details Date Type Department Care Team (Latest Contact Info) Description 04/17/2020 8:00 PM CDT - 04/23/2020 3:40 PM CDT Hospital Encounter [facility] [address] [place] [address] Phuong Frazier MD [address] [place] [id number] Discharge Disposition: Home or Self Care Social [...] Sign Reading Time Taken Comments Blood Pressure 128/76 04/23/2020 3:15 PM CDT Pulse 65 04/23/2020 4:55 AM CDT Temperature 36.7 ??C (98 ??F) 04/23/2020 8:30 AM CDT Respiratory Rate 18 04/23/2020 12:00 AM CDT Oxygen Saturation 99% 04/23/2020 8:30 AM CDT Inhaled Oxygen Concentration 25% 04/19/2020 8 :22 AM CDT Weight 74.4 kg (164 lb) 04/23/2020 4:55 AM CDT Height 157.5 cm (5' 2 ) 04/23/2020 4:55 AM CDT Body Mass Index 30 04/23/2020 4:55 AM CDT documented in this [...] 04/17/2020 documented as of this encounter Discharge Summaries * Mary Ann Koo - 04/23/2020 3:03 PM CDT DISCHARGE SUMMARY: Vital signs stable, assessment WNL. Patient discharged home today.Patient was ambulatory to car with FOB and grandmother. Discharge instructions given to and gone over with patient. Patient verbalized understanding of discharge instructions. Save your life sheet provided to jhony ent. Instructed patient to take prescribed medications to pharmacy of choice and that also prescribed medications were sent to pharmacy for her to sweet pickle maker. Patient knows to call and schedule 1 week and 6 week follow up visit. Aware to schedule appointment with hematology also. No further concerns. * Shira Gracia MD - 04/22/2020 3:40 PM CDT negative turner Discharge Summary 05/05/2020, 8:59 AM Date of Admission: 04/17/2020 Date of Discharge: 04/22/2020 Admission Diagnosis: 29 year old at 38w0d with 1. Vaginal bleeding 2. DCDA Twins 3. Severe Iron deficiency anemia 4. Hepatitis C 5. Limited PNC 6. Polysubstance abuse Discharge Diagnosis: 29 year old with 1. Placental abruption 2. hemorrhage 3. Chronic ITP 4. Hypovolemic shock 5. Acute hypoxic respiratory failure 6. Pre-eclampsia with SF 7. Polysubstance abuse 8. Hepatitis C 9. UTI 10. Status post Section Service: Maternal Medicine Consults: Anesthesia HPI: Hillary Smalls is a 29 year old at 38w0d whose care was with limited with [facility]. She presented as a high risk transfer with with complaints of vaginal bleeding. Patient reports she got up to use the bathroom and noticed a big gush of bright red blood that was like Koolaid. She went to the nearest hospital and then was transfered to [facility] ([place] Patient has continued to have some vaginal bleeding, but it is much less. Feels some mild contractions.She has not been seen in [place] in several months due to transportation and financial difficulties as well as COVID. positive Ctx. negative LOF. positive VB. positive FM X2. was complicated by: Patient Active Problem List: Anemia Hepatitis C virus infection without hepatic coma Thrombocytopenia affecting Transaminitis Twin Polysubstance abuse screening for malformation using ultrasonics Screening, , for risk of pre-term labor Chronic idiopathic thrombocytopenia Hemorrhagic shock Acute respiratory failure Acute blood loss anemia Hospital Course: The patient was transferred with concern for heavy vaginal bleeding. At admission her vaginal bleeding was stable. Further evaluation revealed platelets of 30 at admission and it was suspected to be secondary to chronic ITP secondary to chronic hepatitis C. She was transfused 2 units of plts, and ordered for dexamethadone 40mg IV daily. Patient also had DCDA twins, both vertex on admission. The patient had a strong history of polysubstance abuse with recent meth use one week prior to admission.The plan was for IOL with close monitoring of vaginal bleeding. The patient was induced in the normal fashion. Labs were trended and the patient got an additional units of platelets. During induction, baby A had a prolonged deceleration to the 80s for 9 minutes. The patient was given terbutaline and repositioned without resolution. The decision was made to move emergently to the OR for section. The section was performed without difficulty. The patient received hemabate, methergine, TXA, and cytotec in the OR. After the operation the patient had continued bleeding and was given FFP. The patient was then hypotensive, tachycardic and pale with a boggy uterus and vaginal bleeding. The patient continued to receive blood product transfusions. Total EBL at that time was 4000cc,Hgb 5.4, plt 42. The ICU was called and the patient was then transferred to the ICU and placed on a levophed drip. A bakri balloon was also placed under ultrasound guidance and several bimanual examswere performed to ensure hemostasis. The bakri balloon was in place for 24 hours. The patient's bleeding decreased and the patient improved on POD 1. Heme/Onc was consulted and recommended a regimen of solumendrol, venofer, and folate. The patient was transfused with additional blood products as needed. The patient continued to recover and was transferred to PSCU on POD 2. She also developed severe range blood pressures and RUG pain, and was started on Magnesium for 24 hrs. The patient developed an ileus on POD 4 which resolved with bowel rest. Her urine culture came back positive for a UTI and was treated with macrobid. Delivery: For full details of delivery, please refer to operative note or delivery summary. Delivery Type: Section Estimated Blood Loss: See delivery summary Anesthesia/Analgesia: See delivery summary Information for the patient's : Socorro Smalls [[id number]] Date of 04/18/2020 Time of : 2:53 AM Sex: Female Weight: 2640 g (5 lb 13.1 oz) (1 min): 6 (5 min): 7 (10 min): 8 Information for the patient's : Santiago Smalls [[id number]] Date of 04/18/2020 Time of : 2:54 AM Sex: Male Weight: 2640 g (5 lb 13.1 oz) (1 min): 5 (5 min): 8 (10 min): Course: Her course was complicated. Please seen hospital course above for full details. Patient is bottle feeding. She is undecided for contraception. Results: Recent Labs Component Name 04/21/20 0641 12/08/19 03012/08/19 030 ABO - - A RHTYPE - - Positive ABORH A POS - - - = values in this interval not displayed. Recent Labs Component Name 04/23/20 0601 04/22/20 0928 04/21/20 0445 WBC 15.8* 13.3* 22.9* HGB 8.4* 8.0* 8.6* HCT 25.6* 24.6* 26.0* PLTCOUNT 272 219 211 Discharge Vitals: BP 128/76 Pulse 65 Temp 98 ??F (36.7 ??C) (Oral) Resp 18 Ht 5' 2 (1.575 m) Wt 164 lb (74.4 kg) SpO2 99% BMI 30 kg/m2 Disposition: Home on day # 5. Follow-up: with [facility] at 1 week(s) Discharge Instructions: Continue these medications at home: Current Discharge Medication List START taking these medications Instructions Authorizing Provider docusate sodium 100 MG capsule Commonly known as: COLACE Quantity Dispensed: 60 capsule Take 1 capsule by mouth 2 times daily Keren Hicks MD iron polysaccharides 150 MG capsule Commonly known as: NIFEREX 150 Quantity Dispensed: 100 capsule Take 1 capsule by mouth once daily Shira Gracia MD oxyCODONE (immediate release) 5 MG tablet Commonly known as: ROXICODONE Quantity Dispensed: 12 tablet Take 1 tablet by mouth every 4 hours as needed for Pain Keren Hicks MD CONTINUE taking these medications which have CHANGED Instructions Authorizing Provider folic acid 1 MG tablet What changed: Another medication with the same name was removed. Continue taking this medication, and follow the directions you see here. Commonly known as: FOLVITE Quantity Dispensed: 30 tablet Take 1 tablet by mouth once daily Shira Gracia MD CONTINUE taking these medications which have NOT CHANGED Instructions Authorizing Provider calcium carbonate 500 MG chew tablet Commonly known as: TUMS Quantity Dispensed: 60 tablet Take 1 tablet by mouth every 2 hours as needed for Heartburn Marisa James MD Cyanocobalamin 1000 MCG Quantity Dispensed: 30 tablet Take 1 tablet by mouth once daily Shira Gracia MD plus 27-1 MG tablet Quantity Dispensed: 30 tablet Take 1 tablet by mouth once daily Marisa James MD STOP taking these medications ferrous sulfate 325 (65 FE) MG tablet Discharge Procedure Orders Why you were hospitalized Order Specific Question Answer Comments Your discharge diagnosis is: delivery delivered [[id number]] No special diet needed Resume your normal home diet as tolerated. Eat well-balanced meals that include foods from all of the food groups. Drink plenty of fluids It is important that you stay well hydrated. You should drink at least eight to ten 8-ounce glassesof water per day. Nothing per vagina For 6 weeks Light activity While on narcotics (Percocet or [place]) Do not drive Until able to slam on the brakes comfortably and completely off narcotic pain medication (Percocet or [place]) No heavy lifting Do not lift anything over 15 pounds (i.e your baby in a carrier) until cleared by your OBGYN. When to call your provider and patient information Depression (PPD): This is a type of depression that occurs after childbirth. PPD can occur as early as one week up toone year after giving . Signs could include: -Thinking of hurting yourself or your baby -Feeling out of control, unable to care for self or baby -Feeling depressed or sad most of the day every day -Having trouble sleeping or sleeping too much -Having trouble bonding with your baby Call 911 or go to the nearest emergency room if you feel you might harm yourself or your baby. Callclinic immediately for other signs of depression (sadness, withdrawn, difficulty coping with parenting) Venous Thromboembolism: Development of a blood clot usually in your leg (calf area). Signs can include: -Leg pain, tender to touch, burning or redness, particularly in the calf area -Swelling of one leg more than the other Infection: An infection is an invasion of bacteria or viruses that enter and spread through your body, making you ill. Signs can include: -Temp>/= 100.4 F (>/= 38 C) -Bad smelling blood or discharge from vagina -Increase in redness or discharge from episiotomy or open wound not healing Call clinic immediately for above signs. If symptoms worsen or no response from provider/clinic, call 911 or go to the nearest emergency room. Preeclampsia and High Blood Pressure: Hypertension is when your blood pressure is much higher than it should be. A severe and constant headache that does not respond to over the counter medications could be something more serious. Preeclampsia is a complication of that includes high blood pressures and signs of damage to other organs. Eclampsia is the compulsive phase of preeclampsia, characterized by seizures. Worrisome signs include: -Severe constant headache that does not respond to pain medications -Changes in vision, seeing spots or flashing lights -Pain in the upper right abdominal area -Swelling of face, hands and or legs more than what you would expect -Changes in level of consciousness Call 911 for seizures. Call the clinic immediately for any other signs. If symptoms worsen or no response from clinic, call 911 or go to the nearest emergency room. Obstetric Hemorrhage: Obstetric hemorrhage is when you have an excessive amount of bleeding after you have delivered yourbaby. Signs include: -Bleeding through more than 1 sanitary pad per hour -Passing 1 or more clots the size of an egg or bigger -Character of clots goes from dark red/brown with clots to bright red bleeding Call clinic immediately for signs of hemorrhage. If symptoms worsen, call 911 or go to the nearest emergency room. Cardiac (Heart) Disease: Cardiac disease is when your heart is not working well. Signs can include: -Shortness of breath, or difficulty breathing -Feeling that your heart is racing -Chest pain or pressure You must obtain immediate care by calling 911 or going to the nearest emergency room RIGHT AWAY. Shower and bathing instructions May shower any time. May have tub bath after 4 weeks if cleared by OBGYN. Follow up with provider Order Specific Question Answer Comments Follow Up Instructions: Follow up in 1 week for incision check. For relief of pain Take ibuprofen 600mg every 6 hours as needed for relief of pain or discomfort. If additional help is needed you can take Percocet 5-325mg every 6 hours as needed. Stool softeners Take Colace for relief of difficult bowel movements. For relief of constipation Take Miralax for relief of constipation. For relief of itching Take Benadryl for relief of itching. Mgnn-twl-bnhdnch medication Use an abdominal binder or belly band for comfort as needed and use compression stockings (available at pharmacies or online) for leg swelling. Shira Gracia MD 05/05/2020 8:59 AM documented in this encounter Discharge Instructions * Discharge Instructions* Mary Ann Koo - 04/23/2020 2:00 PM CDT Follow up with your Manager Cafe in 1 week after discharge DELIVERED MOTHER DISCHARGE INSTRUCTIONS Refer to the Booklet given during your stay for more information. Please contact your sheet metal superintendent for the followin. Any burning or itching when urinating. . 2. Any significant increase or change in color or odor of vaginal discharge and/or any pus drainingfrom incision. 3. Any significant increase in pain, tenderness, or redness in incision. 4. Any increased vaginal bleeding that may contain clots. 5. Temperature greater than 101 degrees or as instructed by your care provider. 6. Any pus or blood draining from nipples. Remember to collect all your belongings kept at the bedside, for example: your cell phone and cell phone chrome plater helper. PLEASE REMEMBER: 1. Always place your infant on his/her back to sleep. 2. Always use a car safety seat when transporting your child. documented in this encounter Medications at Time [...] mouth once daily 30 tablet 2 04/23/2020 iron polysaccharides (NIFEREX 150) 150 MG capsule Take 1 capsule by mouth once daily 100 capsule 04/23/2020 calcium carbonate (TUMS) 500 MG chew tablet Take 1 tablet by mouth every 2 hours as needed for Heartburn 60 tablet 3 01/23/2020 01/14/2021 ibuprofen (MOTRIN) 600 MG tablet Take 1 tablet by mouth every 6 hours as needed for Pain 40 tablet 1 04/23/2020 05/01/2020 oxyCODONE, immediate release, (ROXICODONE) 5 MG tablet Take 1 tablet by mouth every 4 hours as needed for Pain 12 tablet 04/23/2020 01/14/2021 Vit-Fe Fumarate-FA ( PLUS) 27-1 MG tablet Take 1 tablet by mouth once daily 30 tablet 5 01/23/2020 01/15/2021 documented as of this encounter Progress Notes * Genevieve Reece MSW - 04/23/2020 3:40 PM CDT SW received a letter from DCFS stating the DCFS referral placed was found to be indicated. JAYLYN Vallejo Office Ascom OGRAPHER LITHOGRAPHIC * Angela Hauser Amy - 04/23/2020 11:22 AM CDT Problem: Oral Intake: Inadequate oral intake Goal: Total intake will meet estimated nutrient needs Description: Estimated Needs: KCAL: 0544-6679(20-25 kcal/kg IBW) Protein (g): 60-100(1.2-2 gm/kg IBW) Outcome: Ongoing Note: Nutrition Goal Progress: Progressing toward goal;Continue with current goal CLINICAL NUTRITION REASSESSMENT Assessment: Pt was seen today for follow up, 2 attempts to visit pt , with staff x1 and not in her room x1 . She was on a TF and it was discontinued on 04-18-20 and Regular diet was started on 04-19-20 , she laterhad some abdominal pain , nausea and distention and diet was changed to clear Liquids . She tolerated Clears and diet again advanced to Regular diet , intake only fair PO Intake Average (last 72 hours): % Meal Taken Av % Min: 25 % Max: 75 % . She has some nausea over night she felt was due to med's on an empty stomach. No BM has been recorded this admission, unable to verify if this is accurate, she has Miralax, Colace and MOM ordered . + flatus post op . Low H&H continues after PPH , s/p 6UPRBC , 2UPlts, 2U Chyro and 4UFFP. Agree with PNV + and Niferex and 1 mg Foic acid . She is pumping for infant twins in NICU. Continue to follow at high nutrition risk . Med/Surg History and Clinical Diagnoses: hemorrhagic shock, acute hypoxic respiratory failure, lactic acidosis, s/p emergent with twin ; h/o hepatitis C, anemia Current diet order: Regular Food Allergies: No known food allergies Current tube feeding order: none P.O intake for past 48 hrs: % Meal Taken Av.3 % Min: 50 % Max: 75 % No data recorded Pain affecting intake: No Patient Vitals for the past 336 hrs: Weight Weight Method (Utilize Scales) 04/23/20 0455 164 lb (74.4 kg) -- 04/21/20 1615 166 lb 6.4 oz (75.5 kg) Bedscale 04/20/20 1440 178 lb 14.4 oz (81.1 kg) Standing 04/19/20 0400 174 lb 1.6 oz (79 kg) -- 04/17/202025 162 lb (73.5 kg) Stated No new Weight/Weight change: down 10 # PP LABS: Recent Labs Component Name 04/23/20 0604/22/20 0904/21/20 0641 SODIUM 135* 135* 132* 133* POTASSIUM 3.8 3.3* 3.0* 3.0* CHLORIDE 102 103 100 101 CO2 25 27 26 26 BUN 14 13 13 13 CREATININE 0.60 0.66 0.63 0.65 GLUCOSE 82 79 119* 118* CALCIUM 7.6* 7.1* 6.8* 6.9* ALT 29 26 23 ALKPHOS 112 95 105 AST 34 32 28 TBIL 0.5 0.5 0.4 TPROT 5.7* 5.1* 5.9* EGFR >60 >60 >60 >60 EGFRAFR >60 >60 >60 >60 Recent Labs Component Name 04/21/20 0641 04/20/20 1042 04/19/20 0351 PHOS 3.6 3.0 4.0 Recent Labs Component Name 04/23/20 0601 04/22/20 0928 04/21/20 0445 HGB 8.4* 8.0* 8.6* HCT 25.6* 24.6* 26.0* Agree with supplementation of PNV + and Niferex and 1 mg folic acid . S/p 6 UPRBC, 4UFFP,2UPTLS , 2UCryo PERTINENT MEDICATIONS FOR CURRENT ENCOUNTER: SCHEDULED MEDICATIONS: 0.9% NaCl injection 3 mL, Intracatheter, q8h acetaminophen (TYLENOL) tablet 1,000 mg, Oral, q6h cyanocobalamin (VITAMIN B-12) injection 1,000 mcg, Intramuscular, QDAY docusate sodium (COLACE) capsule 100 mg, Oral, BID famotidine (PEPCID) tablet 20 mg, Oral, BID folic acid (FOLVITE) tablet 1 mg, Oral, QDAY ibuprofen (MOTRIN) tablet 600 mg, Oral, q6h influenza quadrivalent vac (FLULAVAL QUAD) injection (6 month +) 0.5 mL, Intramuscular, Immunization - Once iron polysaccharides (NIFEREX 150) capsule 150 mg, Oral, QDAY magnesium hydroxide (MILK OF MAGNESIA) suspension 30 mL, Oral, QDAY measles, mumps and rubella vaccine (MMR) injection 0.5 mL, Subcutaneous, Immunization - Once nitrofurantoin monohyd macro crystals (MACROBID) capsule 100 mg, Oral, BID WC polyethylene glycol 3350 (MIRALAX) packet 17 g, Oral, QDAY vitamin with iron tablet 1 tablet, Oral, QDAY simethicone (MYLICON) chew tablet 160 mg, Oral, QDAY Tdap (lgutbtn-udqzoyyjjy-jbheo pertussis) (BOOSTRIX) (7y+) injection 0.5 mL, Intramuscular, Immunization - Once CONTINUOUS MEDICATIONS: 0.9% NaCl flush bag, Intravenous, CONTINUOUS PRN Skin/Wound: incisions Last BM: no Bm recorded for this admission Nutrition Care Process (1) Nutrition Diagnostic Statement: Inadequate oral intake related to:: decreased ability to consume or tolerate food and/or fluids due to illness as evidenced by:: oral intake insufficient to meet estimated requirements Nutrition Diagnostic Statement Progress: Nutrition problem continues Nutrition Intervention: Meals and snacks: Current diet order: Regular Nutrition recommendation: agree with current nutrition order Education needed: None Education was not indicated Following pt at high nutritional risk, 3-5 days per protocol . Nutrition recommendation: agree with current nutrition order Continue Regular diet Daily weights Encourage meals and snacks Monitoring: Follow for weights , intake, skin, labs, BM's Evaluation: Nutrition Goal: Total intake will meet estimated nutrient needs Nutrition Goal Timeframe: Ongoing Angela Hauser DTR 04/23/2020 11:22 AM Ascom [id number] * Shira Gracia MD - 04/23/2020 6:17 AM CDT R2 OB Post- Note 04/23/2020, 6:17 AM Subjective: Hillary Smalls had no acute events overnight. She notes that she had an episode of nausea last night when she was upset and trying to take pain medication on an empty stomach. She otherwise tolerated regular food without nausea and has had food since then vomiting without nausea. She continues to pass flatus. She is urinating spontaneously. She is ambulating without difficulty. She denies any headaches, blurry vision, shortness of breath, chest pain, RUQ pain or increased swelling. Objective: Temp (36hrs) Max:98.4 ??F (36.9 ??C) Patient Vitals for the past 24 hrs: Temp Pulse Resp BP 04/23/20 0455 98.2 ??F (36.8 ??C) 65 -- 146/90 04/23/20 0000 98 ??F (36.7 ??C) 61 18 145/87 04/22/20 1950 98 ??F (36.7 ??C) 68 18 143/88 04/22/20 1615 97.6 ??F (36.4 ??C) 66 18 150/90 04/22/20 1336 -- 69 -- -- 04/22/20 1250 98.4 ??F (36.9 ??C) -- 18 123/79 04/22/20 1015 97.7 ??F (36.5 ??C) -- 20 122/63 Intake/Output Summary (Last 24 hours) at 04/23/2020 0617 Last data filed at 04/23/2020 0459 Gross per 24 hour Intake 500 ml Output 1800 ml Net -1300 ml PE: General: awake, oriented; groggy, no acute distress Lungs: CTA B/L Abdomen: BS normal, distended, fundus firm below umbilicus Incision: clean/dry/intact Extremities: no calf tenderness, no palpable cords Data: Recent Labs Component Name 04/22/20 0928 04/21/20 0445 04/20/20 1946 WBC 13.3* 22.9* 21.9* HGB 8.0* 8.6* 8.2* HCT 24.6* 26.0* 24.5* PLTCOUNT 219 211 200 Recent Labs Component Name 04/21/20 0641 12/08/19 0301 ABO - - A RHTYPE - - Positive ABORH A POS - - - = values in this interval not displayed. Assessment/Plan: 29 year old year old S/p emergency primary section, POD # 5 1. and delivery complicated by: 1. 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 Patient s/p 7u pRBCs + 4u FFP + 2u Plts + 2u cryoprecipitate 2. Patient delivery, patient given: cytotec 800mcg, hembate 250mcg x2, Methergine, Pitocin, TXA 1. EBL: 4000cc 3. S/p Bakri balloon and pitocin 4. S/p Heme/Onc consultation, recommendations appreciated 1. Goal: Hgb >7, Plts > 50K 2. S/p Solumedrol 1g IV x 3 days 3. S/p IVIG 4. S/p Venofer 300mg x3d 5. Replace Folate, B12 6. Labs q8 Hr per Heme 5. Hgb stable: 8.6, Plt 211. Coags stable. 6. Heme recommends high dose steroids which is not recommended for wound healing, will hold off as plts are stable 2. Hypovolemic shock with acute hypoxic respiratory failure, resolving 1. Rapid response called during immediate post- period (04/18) 2. S/p Levophed drip 3. Extubated on 04/19 4. Symptoms of cough and end expiratory wheezes, desaturations to 88-89% yesterday when sleeping 5. CXR with small bilateral pleural effusions 6. Lasix 20mg x2 7. Symptoms improved this AM, lungs CTAB 8. Now: SpO2 wnl on RA 9. Complicated by PreE with SF 3. Preeclampsia with SF 1. Mild range pressures in period with new onset severe ranges on 04/20 2. S/p Magnesium 3. No current blood pressure medications 4. ALT/AST , Cr 0.65, plt 211 5. BP: 122-146/63-90 6. Respiratory status as above 7. Lasix 20mg x2 8. Net positive 2L, overall decreasing 4. DCDA twin 1. Twin A: baby girl, Twin B: baby boy 2. Currently in nursery, doing well x2 3. /breast pump available to help with breast engorgement 5. PSA 1. H/O IVDU, UDS (+) amphetamines on admission 2. Reports use of heroin, Vicodin, methamphetamines in the past 3. Patient NOT candidate for breast feeding 6. HCV 1. Quant (11/2019): 909K 2. ID notes that patient can received Hep C treatment if she is drug free for 6 months 7. Limited PNC 1. Limited visits with [facility] (2) secondary to transportation issues 2. Last visit: 01/2020 8. UTI 1. UCx positive for E.Coli and GBS 2. Treating with macrobid for 7 days 2. AFVSS 3. GI: nauseated, normal bowel sounds, continues to pass flatus 1. Ileus, now resolving 2. Consider advancing to a regular diet today 3. Continue to monitor 4. : 1. Adequate and spontaneous voiding 5. DVT/PE prophylaxis: 1. Risk factors: major surgery, Body mass index is 30 kg/m??., state 2. SCDs at present Dispo: Ctn inpatient management , consider discharge home today after being seen by the attending Shira Gracia MD 04/23/2020 6:17 AM Associated attestation - Rick Bolanos MD - 04/23/2020 12:08 PM CDT Physician Attestation: For this patient encounter, I reviewed the [facility] professional's documentation and agreewith history and physical and boiler testing technician of my plan, and I had [id number] time with this patient. DC instructions given. Followup as above. * Keren Cosme RN - 04/23/2020 5:46 AM CDT VSS. Assessment wnl. Pt is up ad corbin voiding without difficulties. Pain controled with motrin Tylenol, and spencer. Pt firm at u. Small amount of bleeding no clots noted. Infants were dc'd with uncle on04/22. Pt stable overnight. * Shira Gracia MD - 04/22/2020 4:14 PM CDT R2 Progress Note Discussed with Heme/Onc today plan of care. They recommend high dose steroids for long term care administrator effect of increased platelets. The rise in platelets thus far is most likely a transient response. Discussed concerns from HR Attending about high dose steroids and wound healing. Heme/Onc is comfortable with HR Attending having final decision to proceed with high dose steroids vs waiting. HR attending does not want to proceed with high dose steroids at this time. Discussed with Dr. Pelaez and Dr. Bolanos. Shira Gracia MD 04/22/2020 4:17 PM * Heraclio Dave MD - 04/22/2020 3:40 PM CDT Hematology/ Oncology progress note Patient's name:Hillary Smalls Date of : 1990 Date of admission: 04/17/2020 Date of visit:04/23/2020 Patient's Primary Care Physician: Alejandro Blevins MD Physician requesting consultation: Phuong Frazier MD Clinical course: Hillary Smalls is a 29 year old White/ female with history of untreated his CV infection,polysubstance drug abuse, IV drug abuse, chronic thrombocytopenia, chronic B12, folate and iron deficiency who was admitted on 04/17/2020 with vaginal bleeding and severe thrombocytopenia at 38 weeks twin . Noted to have placental abruption s/p emergency complicated by hemorrhage s/p Solu-medrol 1g pulse dose infusion daily x 3 days, S/p IVIG x 2 doses, transfusion ofmultiple units of PRBC, platelets and FFP. Clinical course complicated by hemorrhagic hypovolemic shock, acute hypoxemic respiratory failure requiring mechanical ventilation and vasopressor support tr ansiently. Has chronic B12, folate and iron deficiency on replacement therapy. Her bleeding has improved. Interval history: -Subjective: No acute events overnight. Tolerated regular diet well. Denied nausea/vomiting. Had a bowel movement. Urinating spontaneously. Has mild abdominal cramps. -Objective: -platelet count at 272, hemoglobin stable at 8.4 -started on Macrobid for UTI Review of Systems: as per interval history General ROS: no fever no night sweats Psychological ROS: no anxiety, no depression Ophthalmic ROS: no decreased vision no eye pain ENMT ROS: no ear pain, no drainage, no nosebleed, no oral ulcers no sore throat Allergy and Immunology ROS: no nasal congestion, no hives Hematological and Lymphatic ROS: no bruising, no bleeding Endocrine ROS: negative Breast ROS: no breast lump Respiratory ROS: no cough, no shortness of breath, no chest pain Cardiovascular ROS: no chest pain no dyspnea on exertionGastrointestinal ROS: no abdominal pain, no black/ bloody stools. No diarrhea, no nausea no vomiting. Genito- Urinary ROS: no dysuria, no hematuria Musculoskeletal ROS: no joint pains, no falls. Neurological ROS: no TIA or stroke symptoms. No seizures. Dermatological ROS: no lumps no pruritus no bleeding. Allergies: Allergies Allergen Reactions ??? Bee Venom Anaphylaxis ??? Shellfish Allergy Anaphylaxis Medications: Current Facility-Administered Medications Medication Dose Route Frequency Provider Last Rate Last Dose ??? 0.9% NaCl flush bag 250 mL Intravenous CONTINUOUS PRN Clem Brown MD 3 mL/hr at 04/18/20 1811 ??? 0.9% NaCl injection 3 mL 3 mL Intracatheter q8h Shayna Chirinos MD 3 mL at 04/22/20 0633 And ??? 0.9% NaCl injection 1-10 mL 1-10 mL Intracatheter PRN Shayna Chirinos MD ??? acetaminophen (TYLENOL) tablet 650 mg 650 mg Oral Once PRN Shayna Chirinos MD Or ??? acetaminophen (TYLENOL) suppository 650 mg 650 mg Rectal Once PRN Shayna Chirinos MD ??? acetaminophen (TYLENOL) tablet 1,000 mg 1,000 mg Oral q6h Machelle Varner MD 1,000 mg at 04/23/20 0913 ??? benzocaine-menthol (DERMOPLAST) spray Topical TID PRN Shayna Chirinos MD ??? calcium carbonate (TUMS) chew tablet 2 tablet 2 tablet Oral q4h PRN Shayna Chirinos MD ??? calcium gluconate 10 % injection 1 g 1 g Intravenous PRN Danilo Rodríguez MD ??? cyanocobalamin (VITAMIN B-12) injection 1,000 mcg 1,000 mcg Intramuscular QDAY Heraclio Dave MD1,000 mcg at 04/23/20 0914 ??? diphenhydrAMINE (BENADRYL) capsule 25 mg 25 mg Oral AT BEDTIME PRN Mayuri Norton MD ??? diphenhydrAMINE (BENADRYL) capsule 25 mg 25 mg Oral q6h PRN Mayuri Norton MD ??? diphenhydrAMINE (BENADRYL) capsule 25 mg 25 mg Oral Once PRN Shayna Chirinos MD Or ??? diphenhydrAMINE (BENADRYL) injection 25 mg 25 mg Intravenous Once PRN Shayna Chirinos MD ??? docusate sodium (COLACE) capsule 100 mg 100 mg Oral BID Mayuri Norton MD 100 mg at 04/23/20 0913 ??? famotidine (PEPCID) tablet 20 mg 20 mg Oral BID Mayuri Norton MD 20 mg at 04/23/20 0913 ??? folic acid 1 mg in 0.9% NaCl IV 50 mL IVPB 1 mg Intravenous QDAY Heraclio Dave MD Stopped at 04/22/20 0945 ??? ibuprofen (MOTRIN) tablet 600 mg 600 mg Oral q6h Machelle Varner MD 600 mg at 04/23/20 0914 ??? influenza quadrivalent vac (FLULAVAL QUAD) injection (6 month +) 0.5 mL 0.5 mL Intramuscular Immunization - Once Danilo Rodríguez MD ??? iron polysaccharides (NIFEREX 150) capsule 150 mg 150 mg Oral QDAY Shayna Chirinos MD 150mg at 04/23/20 0914 ??? lanolin topical Topical PRN Shayna Chirinos MD ??? magnesium hydroxide (MILK OF MAGNESIA) suspension 30 mL 30 mL Oral QDAY Mayuri Norton MD 30 mL at 04/22/20 0842 ??? measles, mumps and rubella vaccine (MMR) injection 0.5 mL 0.5 mL Subcutaneous Immunization - Once Mayuri Norton MD ??? naloxone (NARCAN) injection 0.2 mg 0.2 mg Intravenous PRN Mayuri Norton MD ??? nitrofurantoin monohyd macro crystals (MACROBID) capsule 100 mg 100 mg Oral BID WC Pasquesi, Shira C, MD 100 mg at 04/23/20 0913 ??? ondansetron (disintegrating) (ZOFRAN ODT) tablet 4 mg 4 mg Oral q6h PRN Mayuri Norton MD 4 mg at 04/20/20 2345 ??? oxyCODONE (immediate release) (ROXICODONE) tablet 10 mg 10 mg Oral q4h PRN Machelle Varner MD 10 mg at 04/23/20 0918 ??? oxyCODONE (immediate release) (ROXICODONE) tablet 5 mg 5 mg Oral q4h PRN Machelle Varner MD 5 mg at 04/23/20 0456 ??? polyethylene glycol 3350 (MIRALAX) packet 17 g 17 g Oral QDMayuri Finn MD 17 g at 04/22/20 0842 ??? vitamin with iron tablet 1 tablet 1 tablet Oral QDMayuri Finn MD 1 tablet at 04/23/20 09 ??? simethicone (MYLICON) chew tablet 160 mg 160 mg Oral QDAY Mayuri Norton MD 160 mg at 04/23/20 0913 ??? simethicone (MYLICON) chew tablet 80 mg 80 mg Oral 4X/day PRN Mayuri Norton MD 80 mg at 04/22/20 0843 ??? Tdap (ycnwmfe-ftuuqdspid-ujeqj pertussis) (BOOSTRIX) (7y+) injection 0.5 mL 0.5 mL Intramuscular Immunization - Once Mayuri Notron MD Medications in SEP reviewed. Physical examination: height is 5' 2 and weight is 164 lb. Her oral temperature is 98 ??F (36.7 ??C). Her blood pressureis 158/86 and her pulse is 65. Her respiration is 18 and oxygen saturation is 99%. General appearance: pleasant female, awake, alert, cooperative, in no distress. Significant other at bedside. Skin: no rashes, or bruising noted. Head: normocephalic, atraumatic. Eyes: sclera and conjunctiva clear, PERRLA Ears: hearing intact, no drainage. Nose: anterior nares normal, no bleeding. Oral cavity and Throat: mucous membranes moist, no oral ulcers. Neck: no thyromegaly, no palpable cervical nodes, no supraclavicular adenopathy Chest: no masses, or chest-wall tenderness. Breasts: deferred Respiratory: breath sounds heard, no rales, no rhonchi Cardiovascular: pulses equal, S1 and J4mvekd, no S3, no S4, no rubs no murmurs. Abdomen: soft, mildly tender, bowel sounds heard, no masses, no palpable organomegaly. Dressing intact with no bleeding. Rectal: deferred Genito-urinary: deferred. Lymphatic: no palpable cervical, supraclavicular, axillary adenopathy noted. Extremities: no clubbing no edema. Musculo-skeletal: joints intact bilaterally, no obvious tenderness. Neurological: Alert, oriented in time, space and person; no obvious cranial nerve deficits noted. Normal speech and affect. No gross sensory or motor deficits noted. Gait and coordination not checked Laboratory data: Recent Labs Component Name 04/23/20 0601 04/22/2092704/21/20 0445 04/20/20 1408 WBC 15.8* 13.3* 22.9* - 21.4* RBC 2.97* 2.77* 3.02* - 2.80* HGB 8.4* 8.0* 8.6* - 7.9* HCT 25.6* 24.6* 26.0* - 23.5* MCV 86.2 88.8 86.1 - 83.9 MCHC 32.8 32.5 33.1 - 33.6 RDWCV 19.6* 19.5* 19.5* - 18.7* PLTCOUNT 272 219 211 - 166 NEUTPCT 79.2* 77.8* - - 87.7* LYMPHPCT 11.4* 13.7* - - 4.8* BASOPHILPCT 0.2 0.2 - - 0.2 GRANSIMMPCT 3.9* 2.6* - - 4.3* LYMPHABS 1.80 1.82 - - 1.02* BASOABS 0.03 0.02 - - 0.04 NRBCAUTO 4 3 3 - 3 - = values in this interval not displayed. Recent Labs Component Name 04/23/20 0601 04/22/2092704/21/20 0641 SODIUM 135* 135* 132* 133* POTASSIUM 3.8 3.3* 3.0* 3.0* CHLORIDE 102 103 100 101 CO2 25 27 26 26 BUN 14 13 13 13 CREATININE 0.60 0.66 0.63 0.65 GLUCOSE 82 79 119* 118* CALCIUM 7.6* 7.1* 6.8* 6.9* ALBUMIN 2.2* 2.0* 2.1* 2.1* ALKPHOS 112 95 105 ALT 29 26 23 AST 34 32 28 TBIL 0.5 0.5 0.4 TPROT 5.7* 5.1* 5.9* EGFR >60 >60 >60 >60 Imaging data: Chest, 2 views ?? DATE: 04/20/2020 at 1640 hours ?? INDICATION: Chest pain and preeclampsia. ?? FINDINGS: Since 04/18/2020 the endotracheal and presumptive nasogastric tubes have been removed. The lungs are clear but small bilateral pleural effusions are seen on the lateral view. There is no vascular congestion. The heart size is normal. Bony thorax is unremarkable. ?? IMPRESSION ?? Small bilateral pleural effusions ?? Assessment: In summary, Hillary Smalls is a pleasant 29 year old female with : Placental abruption at 38 weeks twin status post emergent complicated by hemorrhage s/p Solu-medrol 1g pulse dose infusion daily x 3 days, S/p IVIG x 2 doses, transfusion of multiple units of PRBC, platelets and FFP. PLAN: Transfuse PRBCs to maintain hemoglobin greater than 7 Transfuse platelets if bleeding to maintain count greater than 50,000 Transfuse cryoprecipitate if her fibrinogen level falls below one hundred fifty Transfuse fresh frozen plasma if patient develops coagulopathy with INR > 1.5 Status post hemorrhagic hypovolemic shock and acute hypoxemic respiratory failure requiring vessel pressors and intubation transiently due to above Chronic thrombocytopenia: Multifactorial from untreated hepatitis infection, severe B12 and folate deficiency, possible concomitant immune thrombocytopenia with a component of current untreated UTI: Status post Solu-Medrol 1 g pulse dose IV infusion into 3 days and IVIG infusion daily x 2 doses Patient platelet count improved significantly with above treatment PLAN: Recommended high-dose Decadron for 4 days as Solu-Medrol and IVIG that patient received has transient response. 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 Noted that the MFM/Ob team doesn't want to proceed with high dose steroids. Monitor platelet count Transfuse platelets if bleeding to maintain count greater than 50,000 Recommended outpatient follow-up with her veneer sheet repairer within one week of discharge UTI secondary to E coli and Streptococcus agalactiae: Macrobid x 7 days Chronic vitamin B12, folate and iron deficiency anemia on replacement therapy: Status post B12 1000 mcg IM, IV Venofer 300 mg x 3 days followed by oral therapu PLAN: Give one dose of IM Vitamin B 12 today. Discharge on p.o vitamin B12 1000 mcg daily, Niferex 150 mgdaily and folic acid 1 mg daily Polysubstance abuse: Drug screen positive for amphetamine Monitor for withdrawal symptoms Untreated hepatitis C infection: Will need outpatient follow-up and therapy if patient remains abstinent from polysubstance abuse was [address] Tenzin Pittman MD PGY3 Internal medicine Please be advised that voice recognition software has been used on this chart and inadvertent errors may occur. These may not represent a true interpretation of the dictation given. Attending note: ?? 1.?Placental abruption at 38 weeks twin , status post emergent C- section 04/18/2020 withpostpartum hemorrhage- Management as per the maternal medicine/Ob team. Improved vaginal bleeding.?? Patient reports no significant Bleeding. Stable Hb without transfusion need in several days.Status post IV iron, currently on oral iron. ?? 2.?Hemorrhagic, hypovolemic shock, severe anemia from large volume vaginal blood loss due to 1- no further bleeding. Status post IV Venofer, switched to oral iron. Low but stable hemoglobin. Has not needed PRBC transfusions in the last few days. Stable hemodynamics. Continue oral iron, switch tooral B12, folic acid orally. ?? 3.?Chronic thrombocytopenia-??multifactorial from chronic untreated HCV infection, possible concomitant immune thrombocytopenia, severe B12 deficiency, folate deficiency, polysubstance abuse. ??S/p Solu-Medrol 1 g pulse dose??IV infusion daily x3 days, IVIG 1 gram/kg per day infusion as daily [id number]. Last dose of Solu-Medrol on 04/20/2020. Has had a good response with normalization ofher platelet count currently. However, responses to Solu-Medrol and IVIG may be transient. Recommend dexamethasone 40 mg orally daily x4 days with GI prophylaxis - order canceled by the [facility] team . ? No evidence of hemolysis on lab evaluation, no peripheral smear or lab evidence of thrombotic microangiopathy or microangiopathic hemolytic anemia.?No evidence of DIC.?Has an indeterminate low titer cardiolipin IgM antibody with negative beta 2 glycoprotein antibodies, negative lupus anticoagulant, no prior history of arterial or venous thromboembolic events. She will need to repeat APLA labs when??stable as outpatient. ??This is not clinically suggestive of catastrophic APS. ?? 4.?Hypoxic respiratory failure, lactic acidosis, status post intubation, mechanical ventilation-extubated successfully, transferred to the floor. Currently on room air oxygenating well. ?? 5.?Chronic B12, folate, iron deficiency anemia-s/p vitamin B12 1000 mcg IM daily x days. Switch to vitamin B12 1000 mcg p.o. daily prior to discharge. Status post Venofer 300??mg IV infusion dailyx3 days, followed by oral iron daily. Continue folic acid 1 mg po daily. These levels need to be monitored by her outpatient veneer sheet repairer on discharge. ?? 6.?Untreated HCV infection,??mildly deranged hepatic function-low albumin, impaired synthetic function.. ??Will need to start therapy directed against HCV once stable as outpatient if she remains abstinent from polysubstance abuse. ?? 7.?Polysubstance drug abuse, IV drug abuse-UDS positive for amphetamine. Strongly counseled and recommended to quit. Management as per the primary team. ?? 8. E coli/strep agalactiae in urine culture-management as per the [facility] team. On Macrobid. ?? Discussed with the patient, mother and her significant other at the bedside. Anticipate discharge later today. I have asked her to follow-up with her local veneer sheet repairer upon discharge within 1 week to monitor her labs for stability. ?? Patient seen and examined by me independently and together with Dr. Pittman and discussed with her . I agree with the evaluation and plan with my annotations in blue ink. Care plan discussed with Dr. Pittman . I have participated directly in the care of this patient and was physically present in the room with the patient and Dr. Pittman through all aspects of the history and exam. ?? Heraclio Dave MD, FACP Hematology and Medical Oncology ? Please be advised that voice recognition software has been used on this chart and inadvertent errors may occur. These may not represent a true interpretation of the dictation given. * Mila Mohr, PT - 04/22/2020 2:53 PM CDT Physical Therapy Treatment Summary Chart review completed. Nursing consented for PT. Patient consented to participate in therapy. SUBJECTIVE: Patient is reluctantly agreeable to PT. She reports she has been able to ambulate independently in the room. She reports pain with supine <-> sit transfers. She reports she was using a binder but hasn't used it anymore d/t having drainage from her wound. Patient's Goal for the Day: Ambulate Pain Assessment: Pain Rating Score #: 0 OBJECTIVE: Orientation Level: Oriented X4 Precautions: Bed Mobility: Supine to Sit: Modified [place] Transfers: Sit to Stand: Complete [place] Stand to Sit: Complete [place] Mobility: Distance Ambulated: 300 FEET Ambulation: Assistive Device: None(refused gait belt) Ambulation: Level of Assistance: Complete [place] Ambulation: Gait Deviations: Antalgic Balance: Sitting - Static: Good Sitting - Dynamic: Good Standing - Static: Good Standing - Dynamic: Good Activity Tolerance and O2 Requirements: Activity Tolerance: Tolerates ADLs without rest breaks O2 DEVICE: Room Air - None Patient left standing at bedside with S.O. present with call light and phone within reach. All lines, monitors, IV's, equipment in place and intact pre and post visit. Nursing informed about today's treatment session. Please refer to Filed Flowsheet for more detailed information. Refer to care plan for goals ASSESSMENT: Patient ambulates at quick elizabeth, tripped over her shoes 2x but recovered balance independently. Patient requires cues for pacing. Patient was educated on use of log roll technique for pain control and incision protection with supine <-> sit transfers, she declines to practice at this time. Patient was educated on importance of ambulation and verbalized understanding. RECOMMENDATIONS/PLAN: Patient requests to complete PT orders at this time. Anticipate d/c to home with prn family assist once medically cleared. If this is the last Physical Therapy visit, this note serves as the discharge summary. Marilu Mohr, PT, DPT #[id number] * Mila Mohr, PT - 04/22/2020 2:53 PM CDT Problem: Mobility Goal: STG - Patient will ambulate Description: x150 feet with wheeled walker modified independently and normal vital signs. Outcome: Goal Met Problem: Transfers Goal: STG - Transfer from bed to chair Description: With wheeled walker modified independently. Outcome: Goal Met Goal: STG - Patient to transfer to and from sit to supine Description: With log roll technique with modified independence. Outcome: Goal Met * Genevieve Reece MSW - 04/22/2020 11:08 AM CDT SW met with pt at bedside and provided emotional support as she expressed her understanding of the plan at this time. SW encouraged her to reach out with additional questions regarding the supports and substance tx resources previously discussed. SW reached out to Irlanda Lara ([phone]; fax [phone]; ) who indicated [employer]CF[employer] has taken custody of the twins. SW has placed copies of the court order in the pt and twins' hard chart. She shared she has connected with the pt and mother (Brittany) this morning. She indicated placement is being explored with an uncle, who she is meeting with and will conduct a home visit. SWshared afternoon follow-up will be with GERALD Luo ([id number]) and GERALD explained a copy of a placement letter is needed prior to the twins d/c today (04/22/20). SW will remain connected to DCFS and share updates with the medical team as received. JAYLYN James Office As[employer] * Heraclio Dave MD - 04/22/2020 9:50 AM CDT Hematology/ Oncology progress note Patient's name:Hillary Smalls Date of : 1990 Date of admission: 04/17/2020 Date of visit:04/22/2020 Patient's Primary Care Physician: Alejandro Blevins MD Physician requesting consultation: Phuong Frazier MD Clinical course: Hillary Smalls is a 29 year old White/ female with history of untreated his CV infection,polysubstance drug abuse, IV drug abuse, chronic thrombocytopenia, chronic B12, folate and iron deficiency who was admitted on 04/17/2020 with vaginal bleeding and severe thrombocytopenia at 38 weeks twin . Noted to have placental abruption s/p emergency complicated by hemorrhage s/p Solu-medrol 1g pulse dose infusion daily x 3 days, S/p IVIG x 2 doses, transfusion ofmultiple units of PRBC, platelets and FFP. Clinical course complicated by hemorrhagic hypovolemic shock, acute hypoxemic respiratory failure requiring mechanical ventilation and vasopressor support tr ansiently. Has chronic B12, folate and iron deficiency on replacement therapy. Her bleeding has improved. Interval history: -Subjective: No acute events overnight. Bleeding has improved. Had to change 1 pad overnight. Passing lot of gas. Has some incisional pain. Wants to try solid food. Denied nausea. Her leg swelling has been improving with diuretic. Reported good urine output. -Objective: -noted plasma transfusion yesterday as per chart. But patient have not received it as per primary team -noted positive urine cultures on 04/17. -Stable Hb and platelet count Review of Systems: as per interval history General ROS: no fever no night sweats Psychological ROS: no anxiety, no depression Ophthalmic ROS: no decreased vision no eye pain ENMT ROS: no ear pain, no drainage, no nosebleed, no oral ulcers no sore throat Allergy and Immunology ROS: no nasal congestion, no hives Hematological and Lymphatic ROS: no bruising, no bleeding Endocrine ROS: negative Breast ROS: no breast lump Respiratory ROS: no cough, no shortness of breath, no chest pain Cardiovascular ROS: no chest pain no dyspnea on exertionGastrointestinal ROS: no abdominal pain, no black/ bloody stools. No diarrhea, no nausea no vomiting. Genito- Urinary ROS: no dysuria, no hematuria Musculoskeletal ROS: no joint pains, no falls. Neurological ROS: no TIA or stroke symptoms. No seizures. Dermatological ROS: no lumps no pruritus no bleeding. Allergies: Allergies Allergen Reactions ??? Bee Venom Anaphylaxis ??? Shellfish Allergy Anaphylaxis Medications: Current Facility-Administered Medications Medication Dose Route Frequency Provider Last Rate Last Dose ??? 0.9% NaCl flush bag 250 mL Intravenous CONTINUOUS PRN Clem Brown MD 3 mL/hr at 04/18/20 1811 ??? 0.9% NaCl injection 3 mL 3 mL Intracatheter q8h Shayan Chirinos MD 3 mL at 04/22/20 0633 And ??? 0.9% NaCl injection 1-10 mL 1-10 mL Intracatheter PRN Shayna Chirinos MD ??? 0.9% NaCl injection 3 mL 3 mL Intracatheter q8h Mayuri Norton MD 3 mL at 04/20/20 1512 ??? 0.9% NaCl injection 3 mL 3 mL Intracatheter PRN Mayuri Norton MD ??? acetaminophen (TYLENOL) tablet 650 mg 650 mg Oral Once PRN Shayna Chirinos MD Or ??? acetaminophen (TYLENOL) suppository 650 mg 650 mg Rectal Once PRN Shayna Chirinos MD ??? acetaminophen (TYLENOL) tablet 1,000 mg 1,000 mg Oral q6h Machelle Varner MD 1,000 mg at 04/22/20 1236 ??? benzocaine-menthol (DERMOPLAST) spray Topical TID PRN Shayna Chirinos MD ??? calcium carbonate (TUMS) chew tablet 2 tablet 2 tablet Oral q4h PRN Shanya Chirinos MD ??? calcium gluconate 10 % injection 1 g 1 g Intravenous PRN Danilo Rodríguez MD ??? cyanocobalamin (VITAMIN B-12) injection 1,000 mcg 1,000 mcg Intramuscular QDAY Heraclio Dave MD1,000 mcg at 04/22/20 0915 ??? diphenhydrAMINE (BENADRYL) capsule 25 mg 25 mg Oral AT BEDTIME PRN Mayuri Norton MD ??? diphenhydrAMINE (BENADRYL) capsule 25 mg 25 mg Oral q6h PRN Mayuri Norton MD ??? diphenhydrAMINE (BENADRYL) capsule 25 mg 25 mg Oral Once PRN Shayna Chirinos MD Or ??? diphenhydrAMINE (BENADRYL) injection 25 mg 25 mg Intravenous Once PRN Shayna Chirinos MD ??? docusate sodium (COLACE) capsule 100 mg 100 mg Oral BID Mayuri Norton MD 100 mg at 04/22/20 0843 ??? famotidine (PEPCID) tablet 20 mg 20 mg Oral BID Mayuri Norton MD 20 mg at 04/22/20 0843 ??? folic acid 1 mg in 0.9% NaCl IV 50 mL IVPB 1 mg Intravenous QDAY Heraclio Dave MD Stopped at 04/22/20 0945 ??? ibuprofen (MOTRIN) tablet 600 mg 600 mg Oral q6h Machelle Varner MD 600 mg at 04/22/20 1236 ??? influenza quadrivalent vac (FLULAVAL QUAD) injection (6 month +) 0.5 mL 0.5 mL Intramuscular Immunization - Once Danilo Rodríguez MD ??? iron polysaccharides (NIFEREX 150) capsule 150 mg 150 mg Oral QDAY Shayna Chirinos MD 150mg at 04/22/20 0844 ??? lanolin topical Topical PRN Shayna Chirinos MD ??? magnesium hydroxide (MILK OF MAGNESIA) suspension 30 mL 30 mL Oral QDAY Mayuri Norton MD 30 mL at 04/22/20 0842 ??? measles, mumps and rubella vaccine (MMR) injection 0.5 mL 0.5 mL Subcutaneous Immunization - Once Mayuri Norton MD ??? naloxone (NARCAN) injection 0.2 mg 0.2 mg Intravenous PRN Mayuri Norton MD ??? nitrofurantoin monohyd macro crystals (MACROBID) capsule 100 mg 100 mg Oral BID Shira Conklin MD 100 mg at 04/22/20 1235 ??? ondansetron (disintegrating) (ZOFRAN ODT) tablet 4 mg 4 mg Oral q6h PRN Mayuri Norton MD 4 mg at 04/20/20 2345 ??? oxyCODONE (immediate release) (ROXICODONE) tablet 10 mg 10 mg Oral q4h PRN Machelle Varner MD 10 mg at 04/21/20 1620 ??? oxyCODONE (immediate release) (ROXICODONE) tablet 5 mg 5 mg Oral q4h PRN Machelle Varner MD 5 mg at 04/22/20 1635 ??? polyethylene glycol 3350 (MIRALAX) packet 17 g 17 g Oral QDAY Mayuri Norton MD 17 g at 04/22/20 0842 ??? vitamin with iron tablet 1 tablet 1 tablet Oral QDAY Mayuri Norton MD 1 tablet at 04/22/20 0843 ??? simethicone (MYLICON) chew tablet 160 mg 160 mg Oral QDAY Mayuri Norton MD 160 mg at 04/21/20 0913 ??? simethicone (MYLICON) chew tablet 80 mg 80 mg Oral 4X/day PRN Mayuri Norton MD 80 mg at 04/22/20 0843 ??? Tdap (pnxbdxm-ozcihgihpz-upswb pertussis) (BOOSTRIX) (7y+) injection 0.5 mL 0.5 mL Intramuscular Immunization - Once Mayuri Norton MD Medications in MAR reviewed. Physical examination: height is 5' 2 and weight is 166 lb 6.4 oz. Her oral temperature is 97.6 ??F (36.4 ??C). Her bloodpressure is 150/90 and her pulse is 66. Her respiration is 18 and oxygen saturation is 99%. General appearance: pleasant female, awake, alert, cooperative, in no distress. Babies at bedside. Skin: no rashes, or bruising noted. Head: normocephalic, atraumatic. Eyes: sclera and conjunctiva clear, PERRLA Ears: hearing intact, no drainage. Nose: anterior nares normal, no bleeding. Oral cavityand Throat: mucous membranes moist, no oral ulcers. Neck: no thyromegaly, no palpable cervical nodes, no supraclavicular adenopathy Chest: no masses, or chest-wall tenderness. Breasts: deferred Respiratory: breath sounds heard, no rales, no rhonchi Cardiovascular: pulses equal, S1 and S2 heard, no S3, no S4, no rubs no murmurs. Abdomen: soft, mildly tender, bowel sounds heard, no masses, no palpab le organomegaly. Dressing intact with no bleeding. Rectal: deferred Genito- urinary: deferred. Lymphatic: no palpable cervical, supraclavicular, axillary adenopathy noted. Extremities: no clubbing no edema. Musculo-skeletal: joints intact bilaterally, no obvious tenderness. Neurological: Alert, oriented in time, space and person; no obvious cranial nerve deficits noted. Normal speech and affect. No gross sensory or motor deficits noted. Gait and coordination not checked Laboratory data: Recent Labs Component Name 04/22/20 0928 04/21/20 0445 04/20/20 1946 04/20/20 1408 04/20/20 1042 WBC 13.3* 22.9* 21.9* 21.4* 22.0* RBC 2.77* 3.02* 2.93* 2.80* 2.67* HGB 8.0* 8.6* 8.2* 7.9* 7.5* HCT 24.6* 26.0* 24.5* 23.5* 22.5* MCV 88.8 86.1 83.6 83.9 84.3 MCHC 32.5 33.1 33.5 33.6 33.3 RDWCV 19.5* 19.5* 18.6* 18.7* 18.8* PLTCOUNT 219 211 200 166 165 NEUTPCT 77.8* - - 87.7* 83.5* LYMPHPCT 13.7* - - 4.8* 6.9* BASOPHILPCT 0.2 - - 0.2 0.1 GRANSIMMPCT 2.6* - - 4.3* 3.3* LYMPHABS 1.82 - - 1.02* 1.51 BASOABS 0.02 - - 0.04 0.03 NRBCAUTO 3 3 3 3 2 Recent Labs Component Name 04/22/20 0928 04/21/20 0641 04/20/20 1042 04/18/20 0537 SODIUM 135* 132* 133* 135* - 138 POTASSIUM 3.3* 3.0* 3.0* 4.0 - 4.8 CHLORIDE 103 100 101 108* - 110* CO2 27 26 26 24 - 13* BUN 13 13 13 18 - 20* CREATININE 0.66 0.63 0.65 0.65 - 1.02 GLUCOSE 79 119* 118* 103 - 306* CALCIUM 7.1* 6.8* 6.9* 7.4* - 6.8* ALBUMIN 2.0* 2.1* 2.1* 1.9* - 2.6* ALKPHOS 95 105 - - 192* ALT 26 23 19 - 22 AST 32 28 27 - 34 TBIL 0.5 0.4 - - 0.5 TPROT 5.1* 5.9* - - 4.7* EGFR >60 >60 >60 >60 - >60 - = values in this interval not displayed. Imaging data: Chest, 2 views ?? DATE: 04/20/2020 at 1640 hours ?? INDICATION: Chest pain and preeclampsia. ?? FINDINGS: Since 04/18/2020 the endotracheal and presumptive nasogastric tubes have been removed. The lungs are clear but small bilateral pleural effusions are seen on the lateral view. There is no vascular congestion. The heart size is normal. Bony thorax is unremarkable. ?? IMPRESSION ?? Small bilateral pleural effusions ?? Assessment: In summary, Hillary Smalls is a pleasant 29 year old female with : Placental abruption at 38 weeks twin status post emergent complicated by hemorrhage s/p Solu-medrol 1g pulse dose infusion daily x 3 days, S/p IVIG x 2 doses, transfusion of multiple units of PRBC, platelets and FFP. PLAN: Transfuse PRBCs to maintain hemoglobin greater than 7 Transfuse platelets if bleeding to maintain count greater than 50,000 Transfuse cryoprecipitate if her fibrinogen level falls below one hundred fifty Transfuse respiration plasma if patient develops coagulopathy with INR > 1.5 Status post hemorrhagic hypovolemic shock and acute hypoxemic respiratory failure requiring vessel pressors and intubation transiently due to above Chronic thrombocytopenia: Multifactorial from untreated hepatitis infection, severe B12 and folate deficiency, possible concomitant immune thrombocytopenia with a component of current untreated UTI: Status post Solu-Medrol 1 g pulse dose IV infusion into 3 days and IVIG infusion daily into 2 doses Patient platelet count improved significantly with above treatment PLAN: Recommended high-dose Decadron for 4 days as Solu-Medrol and IVIG that patient received has transient response. Patient can be on tapering dose of oral prednisone as she will not be compliant with medication. 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 Noted that the MFM/Ob team doesn'twant to proceed with high dose steroids. 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 Tenzin Pittman MD PGY3 Internal medicine Please be advised that voice recognition software has been used on this chart and inadvertent errors may occur. These may not represent a true interpretation of the dictation given. Attending note: 1. Placental abruption at 38 weeks twin , status post emergent C- section 04/18/2020 with hemorrhage- weekend events reviewed. Management as per the maternal medicine/Ob team.Improved vaginal bleeding. patient reports minimal bleeding now with lochia. Type cross match and tr ansfuse PRBCs to keep hemoglobin greater than 7 grams/deciliter. Status post IV iron, currently on oral iron. ?? 2. Hemorrhagic, hypovolemic shock, severe anemia from large volume vaginal blood loss due to 1- blood product management as above. Monitor counts closely. status post IV Venofer, switched to oral iron. Low but stable hemoglobin. Has not needed PRBC transfusions in the last few days. Monitor for vaginal bleeding as per the full stack net developer team. Continue oral iron, parenteral B12, folic acid orally. ?? 3. Chronic thrombocytopenia- multifactorial from chronic untreated HCV infection, possible concomitant immune thrombocytopenia, severe B12 deficiency, folate deficiency, polysubstance abuse. S/p Solu-Medrol 1 g pulse dose IV infusion daily x3 days, IVIG 1 gram/kg per day infusion as daily x2 doses.Last dose of Solu-Medrol on 04/20/2020. Has had a good response with normalization of her platelet count currently. However, responses to Solu-Medrol and IVIG may be transient. Recommend dexamethasone 40 mg orally daily x4 days with GI prophylaxis. Transfuse platelets only if bleeding to keep platelet count greater than 50,000. Blood product recommendations as above. No evidence of hemolysis on lab evaluation, no peripheral smear or lab evidence of thrombotic microangiopathy or microangiopathic hemolytic anemia. ADAMTS 13 antibody level about41 percent. No evidence of DIC. Monitor closely for sepsis/infection. Has an indeterminate low titer cardiolipin IgM antibody with negative beta 2 glycoprotein antibodies, negative lupus anticoagulant, no prior history of arterial or venous thromboembolic events. Will need to repeat labs when stable. This is not clinically suggestive of catastrophic APS. ?? 4. Hypoxic respiratory failure, lactic acidosis, status post intubation, mechanical ventilation-extubated successfully, transferred to the floor. Currently on room air oxygenating well. ?? 5. Chronic B12, folate, iron deficiency anemia-on vitamin B12 1000 mcg IM daily x7 days. Await intrinsic factor, MARQUITA, homocystine levels. Status post Venofer 300 mg IV infusion daily x3 days, followed by oral iron daily. Continue folic acid 1 mg po daily. ?? 6. Untreated HCV infection, mildly deranged hepatic function-low albumin, impaired synthetic function.. Will need to start therapy directed against HCV once stable as outpatient if she remains abstinent from polysubstance abuse. ?? 7. Polysubstance drug abuse, IV drug abuse-UDS positive for amphetamine. Strongly counseled and recommended to quit. Management as per the primary team. 8. E coli/strep agalactiae in urine culture-management as per the GI and team. ?? Discussed with the patient and her significant other at the bedside. Patient seen and examined by me independently and together with Dr. Pittman and discussed with her . I agree with the evaluation and plan with my annotations in blue ink. Care plan discussed with Dr. Pittman . I have participated directly in the care of this patient and was physically present in the room with the patient and Dr. Pittman through all aspects of the history and exam. Heraclio Dave MD, FACP Hematology and Medical Oncology Please be advised that voice recognition software has been used on this chart and inadvertent errors may occur. These may not represent a true interpretation of the dictation given. * Maureen Banerjee RN - 04/22/2020 9:43 AM CDT Problem: Oral Intake: Inadequate oral intake Goal: Total intake will meet estimated nutrient needs Description: Estimated Needs: KCAL: 1128-4110(20-25 kcal/kg IBW) Protein (g): 60-100(1.2-2 gm/kg IBW) Outcome: Ongoing * Shira Gracia MD - 04/22/2020 6:53 AM CDT R2 OB Post- Note 04/22/2020, 6:53 AM Subjective: Hillary Smalls had no acute events overnight. She denies any nausea and she is hungry this AM. Shehas been urinating a lot spontaneously. She denies any headaches, or shortness of breath and her swelling has been decreasing. Her abdominal pain from gas is decreasing. She still has some incisionalpain. Objective: Temp (36hrs) Max:98.3 ??F (36.8 ??C) Patient Vitals for the past 24 hrs: Temp Pulse Resp BP 04/22/20 0415 97.5 ??F (36.4 ??C) -- 16 128/72 04/22/20 0000 97.7 ??F (36.5 ??C) -- 20 131/70 04/21/20 2343 -- 76 -- -- 04/21/20 2113 97.8 ??F (36.6 ??C) -- 16 133/65 04/21/20 1650 97.7 ??F (36.5 ??C) 74 19 137/81 04/21/20 1600 -- 77 -- -- 04/21/20 1516 98.2 ??F (36.8 ??C) -- 18 115/56 04/21/20 1318 98.1 ??F (36.7 ??C) -- 18 126/82 04/21/20 1103 98.3 ??F (36.8 ??C) -- 20 145/78 04/21/20 1100 -- 82 -- -- 04/21/20 0920 97.9 ??F (36.6 ??C) -- 18 108/55 04/21/20 0723 98.2 ??F (36.8 ??C) -- 20 144/84 04/21/20 0700 -- 79 -- -- Intake/Output Summary (Last 24 hours) at 04/22/2020 0653 Last data filed at 04/22/2020 0400 Gross per 24 hour Intake 3059.62 ml Output 4400 ml Net -1340.38 ml PE: General: awake, oriented; groggy, no acute distress Lungs: CTA B/L Abdomen: BS normal, distended, fundus firm below umbilicus Incision: clean/dry/intact Extremities: no calf tenderness, no palpable cords Data: Recent Labs Component Name 04/21/20 0445 04/20/20 1946 04/20/20 1408 WBC 22.9* 21.9* 21.4* HGB 8.6* 8.2* 7.9* HCT 26.0* 24.5* 23.5* PLTCOUNT 211 200 166 Recent Labs Component Name 04/21/20 0641 12/08/19 0301 ABO - - A RHTYPE - - Positive ABORH A POS - - - = values in this interval not displayed. Assessment/Plan: 29 year old year old S/p emergency primary section, POD # 4 1. and delivery complicated by: 1. 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 Patient s/p 7u pRBCs + 4u FFP + 2u Plts + 2u cryoprecipitate 2. Patient delivery, patient given: cytotec 800mcg, hembate 250mcg x2, Methergine, Pitocin, TXA 1. EBL: 4000cc 3. S/p Bakri balloon and pitocin 4. S/p Heme/Onc consultation, recommendations appreciated 1. Goal: Hgb >7, Plts > 50K 2. S/p Solumedrol 1g IV x 3 days 3. S/p IVIG 4. S/p Venofer 300mg x3d 5. Replace Folate, B12 6. Labs q8 Hr per Heme 5. Hgb stable: 8.6, Plt 211. Coags stable. 2. Hypovolemic shock with acute hypoxic respiratory failure, resolving 1. Rapid response called during immediate post- period (04/18) 2. S/p Levophed drip 3. Extubated on 04/19 4. Symptoms of cough and end expiratory wheezes, desaturations to 88-89% yesterday when sleeping 5. CXR with small bilateral pleural effusions 6. Lasix 20mg x2 7. Symptoms improved this AM, lungs CTAB 8. Now: SpO2 97-99% on RA 9. Complicated by PreE with SF 3. Preeclampsia with SF 1. Mild range pressures in period with new onset severe ranges on 04/20 2. S/p Magnesium 3. No current blood pressure medications 4. ALT/AST , Cr 0.65, plt 211 5. BP: 128-145/56-82 6. Respiratory status as above 7. Lasix 20mg x2 8. Net positive 3L, good response to lasix yesterday, voided 4L 4. DCDA twin 1. Twin A: baby girl, Twin B: baby boy 2. Currently in nursery, doing well x2 3. /breast pump available to help with breast engorgement 5. PSA 1. H/O IVDU, UDS (+) amphetamines on admission 2. Reports use of heroin, Vicodin, methamphetamines in the past 3. Patient NOT candidate for breast feeding 6. HCV 1. Quant (11/2019): 909K 7. Limited PNC 1. Limited visits with [facility] (2) secondary to transportation issues 2. Last visit: 01/2020 2. AFVSS 3. GI: nauseated, normal bowel sounds, continues to pass flatus 1. Ileus, now resolving 2. Consider advancing to a regular diet today 3. Continue to monitor 4. : 1. Adequate and spontaneous voiding 5. DVT/PE prophylaxis: 1. Risk factors: major surgery, Body mass index is 30.43 kg/m??., state 2. SCDs at present Dispo: Ctn inpatient management Shira Gracia MD 04/22/2020 6:53 AM Associated attestation - Rick Bolanos MD - 04/22/2020 3:29 PM CDT Physician Attestation: For this patient encounter, I reviewed the [facility] professional's documentation and agreewith history and physical and boiler testing technician of my plan, and I had [id number] time with this patient. Check labs. Possible DC tomorrow * Nazanin Presley RN - 04/22/2020 4:45 AM CDT VSS, up to bathroom but otherwise laying in bed all night, patient encouraged to walk halls but hasnot. Also encouraged to drink water but only drinks apple juice. Remains on clear liquid diet, bowel sounds active, + flatus, abdomen soft. Incision draining large amounts of serosanguinous fluid butincision closed and approximated. Large amount of bruising on legs and abdomen. Motrin, tylenol androxicodone for pain. Patient ambivilent with infants and has only held them x1, does not express interest in feeding them or caring for them. * Nazanin Presley RN - 04/22/2020 12:16 AM CDT Problem: Goal: Maternal assessment is within expected range. Outcome: Ongoing Goal: Incision site is free of redness, swelling and/or warmth and is well approximated Outcome: Ongoing Incision draining serosanguinous fluid. Problem: Pain/Discomfort Goal: Patient verbalizes acceptable level of pain relief and ability to engage in desired activity. Outcome: Ongoing * Chelo Hudson RN - 04/21/2020 6:47 PM CDT Shift Summary: Pt moved from 540 to room 614 this evening. VSS, up with CGA and pain controlled with Motrin and 10mg Roxicodone. LCTA and uses IS with encouragement, BS hypoactive, tolerating clear liquids and passing gas. Fundus and lochia are WNL. Pt has generalized edema 3+ in BLE and 1-2+ in hands s/p IV 20mg lasix before transfer. This evening with fundal assessment palpation, low transverseincision leaking serous fluid, corine pad placed and NNO from Dr. Hicks. Low transverse Incision edges well approximated, no s/s of infection. Encouraged pt to ambulate in halls this evening. Tele box [address], sinus rhythm per [facility][id number]. Rooming in and bonding noted. Newborns formula feedi ng and aware of goal of 30cc with each feeding.Call light and phone in place. FOB at bedside and supportive. Will cont to monitor. Connie Hudson,RN * Jerrod Yoon RN - 04/21/2020 4:30 PM CDT Ambulated in the german with a steady gait x 2 today. Hillary denies feeling lightheaded or dizzy when out of bed. Up to the bathroom around 1545. CHG used to abdomen around incision. Corine care done alongwith sponge bath & teeth brushed. Refused Inter-dry to be placed across incision & Abdominal binder on. Weight not done prior to my shift & Hillary would not allow me to zero her bed & we igh there prior to now. Babies remain in well baby nursery. Hillary to transfer up to [facility]. Bedside report given to Connie JENKINS from [facility] ascom- [id number]. Telemetry notified that Hillary is moving to room 614 & the next nurse name & ascom given to her. Hillary reports passing flatus x 2 today. Assessmentunchanged from flow sheet. Tolerating clears had chicken broth/jello/apple juice & water. No nausea or vomiting. * Gneevieve Reece MSW - 04/21/2020 11:32 AM CDT SW involved to provide resources and support to pt as needed for a safe discharge. See social work notes. JAYLYN [facility] Office Ascom * Vahid Haider MD - 04/21/2020 11:19 AM CDT Oncology Progress Note Clinical Course Ms Smalls is a 29-year-old female admitted with vaginal bleeding, severe thrombocytopenia, severe anemia New Symptoms Reports that she is doing well today. Family at bedside. Bleeding has improved significantly over the weekend but she continues to steadily lose blood. She denies any fevers chills. She continues to have some abdominal cramping. Result Recent Labs Component Name 04/21/20 0445 04/20/20 1946 04/20/20 1408 04/20/20 1042 04/19/20 2138 WBC 22.9* 21.9* 21.4* 22.0* 22.0* RBC 3.02* 2.93* 2.80* 2.67* 2.18* HGB 8.6* 8.2* 7.9* 7.5* 6.4* HCT 26.0* 24.5* 23.5* 22.5* 18.4* MCV 86.1 83.6 83.9 84.3 84.4 MCHC 33.1 33.5 33.6 33.3 34.8 PLTCOUNT 211 200 166 165 136* NEUTPCT - - 87.7* 83.5* 89.3* LYMPHPCT - - 4.8* 6.9* 4.0* BASOPHILPCT - - 0.2 0.1 0.1 GRANSIMMPCT - - 4.3* 3.3* 2.8* NEUTABS - - 18.77* 18.36* 19.62* LYMPHABS - - 1.02* 1.51 0.87* BASOABS - - 0.04 0.03 0.03 Recent Labs Component Name 04/21/20 0641 04/20/20 1042 04/19/20 0351 04/18/20 0537 04/18/20 0413 SODIUM 132* 133* 135* 137 138 139 POTASSIUM 3.0* 3.0* 4.0 4.2 4.8 4.0 CHLORIDE 100 101 108* 112* 110* 113* CO2 26 26 24 19* 13* 15* BUN 13 13 18 23* 20* 19* CREATININE 0.63 0.65 0.65 0.84 1.02 0.99 GLUCOSE 119* 118* 103 136* 306* 202* CALCIUM 6.8* 6.9* 7.4* 7.0* 6.8* 7.1* ALT 23 19 - 22 23 ALKPHOS 105 - - 192* 208* AST 28 27 - 34 29 TBIL 0.4 - - 0.5 0.4 TPROT 5.9* - - 4.7* 4.4* EGFR >60 >60 >60 >60 >60 >60 EGFRAFR >60 >60 >60 >60 >60 >60 ALBUMIN 2.1* 2.1* 1.9* 1.7* 2.6* 2.3* Recent Labs Component Name 04/21/20 0641 04/20/20 1042 04/18/20 0930 LDH 449* 358* 337* Recent Labs Component Name 04/21/20 0641 04/20/20 1042 04/19/20 0351 HAPTOGLOBIN 42 65 9* Exam Vitals: 04/21/20 0724 04/21/20 0920 04/21/20 1102 04/21/20 1103 BP: 108/55 145/78 Pulse: Resp: Temp: SpO2: 98% 98% 97% Weight: Height: Intake/Output Summary (Last 24 hours) at 04/21/2020 1119 Last data filed at 04/21/2020 0715 Gross per 24 hour Intake 2021.55 ml Output 5175 ml Net -3152.45 ml General appearance: alert, cooperative, no distress Eyes: sclera and conjunctiva clear, lids normal Throat: no mucous membrane abnormalities Neck: range of motion is intact, no masses Lungs: breath sounds normal and symmetric; no rales or wheezes Heart: regular rhythm, normal S1 and S2, without murmurs, gallops or rubs Abdomen: soft without mass, with normal bowel sounds, dressing Extremities: no clubbing, cyanosis or edema Labs including CMP haptoglobin LDH and CBC with differential reviewed Impression 1. Placental abruptions at 30 weeks twin status post emergent C- section on 04/18/2020 with hemorrhage 2. Hemorrhagic hypovolemic shock 3. Chronic thrombocytopenia 4. Hypoxic respiratory failure status post mechanical ventilation 5. Chronic B12 folate iron deficiency anemia 6. HCV infection, untreated 7. Polysubstance abuse. Plan 1. Placental abruption, status post emergency resection on 04/22/2020 with hemorrhage, management per OB team. Continues to have minimal vaginal bleeding 2. Chronic thrombocytopenia multifactorial with B12 folic acid deficiency, txed w/ IVIG at 1 g/kg 2 doses (last on 04/19/2020) and Solu-Medrol 1 g pulse dose X 3 doses. She has had a significant response as far as her thrombocytopenia platelets are up to 211 today. Will monitor platelet count if her platelets drop tomorrow will place her on a prednisone taper, however if th ey stay stable we will continue to hold prednisone for now given that she is having issues with wound healing. 3. Anemia hemoglobin is 8.6 today improving, continue to monitor daily CBC - repeat haptoglobin normal LDH only slightly elevated not in the range of hemolysis 4. continue iron, B12 and folic acid supplementation. 5. untreated HCV infection, can address once stable. 6. polysubstance drug abuse. Will continue to follow please contact with any questions Vahid Haider MD 04/21/2020 11:25 AM Hematology-Oncology * Jerrod Yoon RN - 04/21/2020 8:30 AM CDT Problem: Goal: Maternal assessment is within expected range. Outcome: Ongoing Problem: Goal: Patient will return to baseline GI status Description: As evidenced by: a) Tolerating preoperative diet without nausea or vomiting b) Passing flatus without difficulty c) Free from signs & symptoms of post-operative ileus formation Outcome: Ongoing Problem: Pain/Discomfort Goal: Patient exhibits reduced pain/discomfort as evidenced by pain scores Outcome: Ongoing Problem: Goal: Incision site is free of redness, swelling and/or warmth and is well approximated Outcome: Ongoing Hillary reports she just wants to sleep this morning. Offered PRN Roxicodone & declined at this time. Hypoactive bowel sounds, denies flatus or a bowel movement since delivery. * Jerrod Yoon RN - 04/21/2020 7:57 AM CDT 04/21/20 0758 Clinician Communication/Critical Test Notification Reason: Lab Results (calcium 6.9 this morning/can we d/c continuous pulse ox) Name of Clinician Notified: Dr. Gracia Role: OB Resident Notification Method: Called/Phoned ([id number]) Action Orders Received (can d/c continuous pulse ox) Comments: Hillary informed & verbalizes an understanding * Luisa Pelaez MD - 04/21/2020 6:14 AM CDT R2 OB Post- Note 04/21/2020, 6:14 AM Subjective: Hillary Smalls had increasing abdominal pain overnight. She states that she was feeling nauseated in the afternoon and did not eat much for dinner. She denies any vomiting. She has been urinating a lot spontaneously. She notes her hands, legs, and face are still swollen. She denies any headaches, or shortness of breath. Objective: Temp (36hrs) Max:98.5 ??F (36.9 ??C) Patient Vitals for the past 24 hrs: Temp Resp BP 04/21/20 0358 -- -- 146/77 04/21/20 0200 -- -- 133/79 04/21/20 0038 98 ??F (36.7 ??C) -- 138/79 04/20/20 2339 98.2 ??F (36.8 ??C) -- 138/80 04/20/20 2116 -- -- 126/71 04/20/20 1848 -- -- 129/72 04/20/20 1835 -- -- 136/80 04/20/20 1820 -- -- 132/83 04/20/20 1805 -- -- 133/81 04/20/20 1750 -- -- 134/79 04/20/20 1735 97.8 ??F (36.6 ??C) 20 133/75 04/20/20 1639 -- -- 126/76 04/20/20 1629 -- -- 126/77 04/20/20 1619 -- -- 126/74 04/20/20 1609 -- -- 121/69 04/20/20 1559 -- -- 119/68 04/20/20 1539 -- -- 124/71 04/20/20 1528 -- -- 136/74 04/20/20 1518 -- 20 130/85 04/20/20 1501 -- -- 168/86 04/20/20 1446 -- -- (!) 181/89 04/20/20 1412 -- -- 170/81 04/20/20 1357 98.2 ??F (36.8 ??C) -- 179/95 04/20/20 1342 -- 20 167/88 04/20/20 0930 98.4 ??F (36.9 ??C) -- 124/65 Intake/Output Summary (Last 24 hours) at 04/21/2020 0614 Last data filed at 04/21/2020 0600 Gross per 24 hour Intake 1982.32 ml Output 5425 ml Net -3442.68 ml PE: General: awake, oriented; groggy, no acute distress Lungs: CTA B/L Abdomen: BS hypoactive, distended, fundus firm below umbilicus Incision: clean/dry/intact Extremities: no calf tenderness, no palpable cords Data: Recent Labs Component Name 04/20/20 1946 04/20/20 1408 04/20/20 1042 WBC 21.9* 21.4* 22.0* HGB 8.2* 7.9* 7.5* HCT 24.5* 23.5* 22.5* PLTCOUNT 200 166 165 Recent Labs Component Name 04/17/20202312/08/19 0301 ABO - - A RHTYPE - - Positive ABORH A POS - - - = values in this interval not displayed. Assessment/Plan: 29 year old year old S/p emergency primary section, POD # 3 1. and delivery complicated by: 1. 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 Patient s/p 67u pRBCs + 4u FFP + 2u Plts + 2u cryoprecipitate 2. Patient delivery, patient given: cytotec 800mcg, hembate 250mcg x2, Methergine, Pitocin, TXA 1. EBL: 4000cc 3. S/p Bakri balloon and pitocin 4. S/p Heme/Onc consultation, recommendations appreciated 1. Goal: Hgb >7, Plts > 50K 2. S/p Solumedrol 1g IV x 3 days 3. S/p IVIG 4. S/p Venofer 300mg x3d 5. Replace Folate, B12 6. Labs q8 Hr per Heme 5. Hgb stable: 8.6, Plt 211. Coags stable. 2. Hypovolemic shock with acute hypoxic respiratory failure, resolving 1. Rapid response called during immediate post- period (04/18) 2. S/p Levophed drip 3. Extubated on 04/19 4. Symptoms of cough and end expiratory wheezes, desaturations to 88-89% yesterday when sleeping 5. CXR with small bilateral pleural effusions 6. Lasix 20mg x1 7. Symptoms improved this AM, lungs with decreased breath sounds in lower lobes 8. Consider additional dose of lasix today 9. Complicated by PreE with SF 3. Preeclampsia with SF 1. Mild range pressures in period with new onset severe ranges on 04/20 2. Magnesium running 3. No current blood pressure medications 4. ALT/AST , Cr 0.65, plt 211 5. BP: 119-146/69-86 6. Respiratory status as above 7. Net positive 4L, good response to lasix yesterday, voided 4L 4. DCDA twin 1. Twin A: baby girl, Twin B: baby boy 2. Currently in nursery, doing well x2 3. /breast pump available to help with breast engorgement 5. PSA 1. H/O IVDU, UDS (+) amphetamines on admission 2. Reports use of heroin, Vicodin, methamphetamines in the past 3. Patient NOT candidate for breast feeding 6. HCV 1. Quant (11/2019): 909K 7. Limited PNC 1. Limited visits with [facility] (2) secondary to transportation issues 2. Last visit: 01/2020 2. AFVSS 3. GI: nauseated, hypoactive bowel sounds, continues to pass flatus but less today 1. Concern for ileus 2. Consider NPO vs CLD today with bowel regimen 3. Continue to monitor 4. : 1. Adequate and spontaneous voiding 5. DVT/PE prophylaxis: 1. Risk factors: major surgery, Body mass index is 32.72 kg/m??., state 2. SCDs at present Dispo: Ctn inpatient management Shira Gracia MD 04/21/2020 6:14 AM MFM Fellow Addendum Ms. Smalls is a 29 yo POD #3 s/p emergent delivery for placental abruption in the setting of di/di twins. Her course was complicated by PPH w/ EBL at 4000 mL s/p Bakri balloon placement and ICU admission for hypovolemic shock. She required intubation, but was extubated on POD #1. Today, she is passing flatus and desires to eat. She has hypoactive bowel sounds and she remains tympanic. Continue to ADAT; on clear liquid diet currently S/p 2 doses of IV lasix w/ appropriate diuresis. Hgb stable. Continue routine post-op/ care. Agree with above note. Luisa Pelaez MD 04/21/2020 12:17 PM Associated attestation - Rick Bolanos MD - 04/21/2020 2:38 PM CDT Physician Attestation: For this patient encounter, I reviewed the [facility] professional's documentation and agreewith history and physical and boiler testing technician of my plan, and I had [id number] time with this patient. * Mayuri Norton MD - 04/21/2020 4:46 AM CDT PGY2 SUPERIOR COURT JUDGE Progress Note In to see patient. She notes her abdominal pain is worse. Describes it as generalized, non-radiating, sharp and cramping. Denies N/V. Tolerating CLD. No gas or BM. Her mother is at bedside and she feels like her abd is more distended. Filed Vitals: 04/20/20 2339 04/21/20 0038 04/21/20 0200 04/21/20 0358 BP: 138/80 138/79 133/79 146/77 Pulse: Resp: Temp: 98.2 ??F (36.8 ??C) 98 ??F (36.7 ??C) TempSrc: Oral SpO2: Weight: Height: PE: General: Mild discomfort at baseline, AAO x3 Abd: distended, BS normoactive x4, tympanic, diffusely tender, no fluid wave, no peritoneal signs Incision: Dressing c/d/i Extremities: 1+ edema A/p: VSS Abd distended, although this is my first time evaluating pp No gas or BM and minimal PO intake Bowel sounds wnl Concern for post-op ileus Will keep on CLD Simethicone and bowel regimen UOP adequate at 1.23 cc/kg/hr VB light per nursing, pad dry on exam Low concern for intra-abd bleed at this time as VSS and Hgb stable Patient on Mg for PreE, currently with + HOFFMAN, BPs wnl Mayuri Norton MD 04/21/2020 4:46 AM * Chen Ba RN - 04/20/2020 8:01 PM CDT Shift Summary: Pt resting comfortably in bed, states no needs at this time. FF @ U/1, small lochia rubra. Reports adequate pain control with Oxycodone, Tylenol, and Motrin. Low transverse incision with corine pad in place, well approximated, no drainage, no redness. Tolerating regular diet. Mag Sulfate 4 gram bolus started at 1507 due to severe BPs and complaint of headache. Now on maintenance of 2grams/hour. Patient tolerating well. Reports headache has subsided and denies blurred vision or epigastric pain. Reflexes 1+, and 2-3+ edema to all extremities. Diuresing well after Lasix IV given. SpO2 93% and above on room air. Encouraged incentive spirometer use and SCDs while in bed. Patient amb ulating to bathroom without difficulty. Patient aware to call staff with any changes. * Chen Ba RN - 04/20/2020 8:00 PM CDT 04/20/20 1532 04/20/20 1544 Clinician Communication/Critical Test Notification Reason: Condition Update -- Name of Clinician Notified: Dr. Basil Gracia Role: OB Resident OB Resident Notification Method: Called/Phoned Provider Initiated Contact Action Other (Comments) Orders Received Comments: Patient desating down to 88% on RA while she is sleeping. Mag Sulfate bolus complete. Lungs with possible expiratory wheezes, but patient is snoring. When patient awakened, SpO2 increased to 94-95% without intervention. Patient quickly drifts off to sleep after conversation with nurse. MDto come assess patient. STAT chest XRay and Lasix 20mg IVP. * Chen Ba RN - 04/20/2020 7:59 PM CDT 04/20/20 1406 04/20/20 1415 04/20/20 1446 Clinician Communication/Critical Test Notification Reason: Condition Update -- Condition Update Name of Clinician Notified: Dr. Marcos Rodríguez Role: OB Resident OB Resident OB Resident Notification Method: Called/Phoned In Person Called/Phoned Action Other (Comments) Orders Received Orders Received Comments: Notified of 2 severe BPs 167/88 and 179/95. Patient complains of intermittent headache. Denies blurred vision, but states she feels cramping in right upper abdomen. Dr. Rodríguez will come assess patient and discuss with team. MD assessing patient, starting HTN protocol with Procardia 10mg now. BP 181/89 15 minutes after Procardia 10mg. Will give Procardia 20mg now. * Shira Gracia MD - 04/20/2020 4:08 PM CDT R2 Progress Note Patient with desaturations to 88-89%. Patient sleepy after getting pain medication as well as magnesium bolus. When awake, saturations at baseline of 95% Lungs with end expiratory wheezes, decreased breath sounds on lower right side, cough since today CXR now Lasix 20mg x1 Will continue to monitor fluid status closely. Shira Gracia MD 04/20/2020 4:10 PM * Danilo Rodríguez MD - 04/20/2020 2:22 PM CDT R1 Progress Note To pts bedside to address new onset severe range BPs of 167/88>179/95. Pt is complaining of HOFFMAN which feels different than her normal migraines. She also complains of URQ pain that began today. Physical Patient Vitals for the past 6 hrs: Temp Resp BP BP Method 04/20/20 1357 -- -- 179/95 Automatic 04/20/20 1342 -- 20 167/88 Automatic 04/20/20 0930 98.4 ??F (36.9 ??C) -- 124/65 -- Pt has 1+ pitting edema in upper and lower extremities Face appears swollen Tender to palpation in RUQ CS incision is clean dry and intact Plan - will initiate HTN protocol and begin with 10mg procardia PO - Mg bolus 4g followed by 2g/hr for seizure ppx - continue to monitor BPs and follow protocol q15 minutes * Anna, Turner Rich MD - 04/20/2020 11:13 AM CDT Oncology Progress Note Clinical Course Ms Smalls is a 29-year-old female admitted with vaginal bleeding, severe thrombocytopenia, severe anemia New Symptoms Transferred out of ICU, responds to verbal stimuli, blood chest pains chest pressure chest pressure, nausea, vomiting, abdomen pain tra Result Recent Labs Component Name 04/20/20 1042 04/19/20 2138 04/19/20 1344 WBC 22.0* 22.0* 19.8* RBC 2.67* 2.18* 2.59* HGB 7.5* 6.4* 7.4* HCT 22.5* 18.4* 21.5* MCV 84.3 84.4 83.0 MCHC 33.3 34.8 34.4 PLTCOUNT 165 136* 146* NEUTPCT 83.5* 89.3* 90.8* LYMPHPCT 6.9* 4.0* 4.6* BASOPHILPCT 0.1 0.1 0.2 GRANSIMMPCT 3.3* 2.8* 2.1* NEUTABS 18.36* 19.62* 17.95* LYMPHABS 1.51 0.87* 0.91* BASOABS 0.03 0.03 0.03 Recent Labs Component Name 04/20/20 1042 04/19/20 0351 04/18/20 0537 04/18/20 0413 04/17/207 SODIUM 135* 137 138 139 138 POTASSIUM 4.0 4.2 4.8 4.0 4.3 CHLORIDE 108* 112* 110* 113* 112* CO2 24 19* 13* 15* 16* BUN 18 23* 20* 19* 21* CREATININE 0.65 0.84 1.02 0.99 1.07 GLUCOSE 103 136* 306* 202* 67* CALCIUM 7.4* 7.0* 6.8* 7.1* 7.8* ALT - - 22 23 30 ALKPHOS - - 192* 208* 334* AST - - 34 29 40* TBIL - - 0.5 0.4 0.3 TPROT - - 4.7* 4.4* 5.3* EGFR >60 >60 >60 >60 60* EGFRAFR >60 >60 >60 >60 >60 ALBUMIN 1.9* 1.7* 2.6* 2.3* 2.7* Recent Labs Component Name 04/20/20 1042 04/18/20 0930 12/08/19 0703 LDH 358* 337* 226* Recent Labs Component Name 04/20/20 1042 04/19/20 0351 12/08/19 0703 HAPTOGLOBIN 65 9* 118 Exam Vitals: 04/20/20 0715 04/20/20 0930 04/20/20 0931 04/20/20 0936 BP: 124/65 Pulse: Resp: Temp: 98.4 ??F (36.9 ??C) SpO2: 97% 95% 96% Weight: Height: Intake/Output Summary (Last 24 hours) at 04/20/2020 1114 Last data filed at 04/20/2020 1110 Gross per 24 hour Intake 3788.22 ml Output 1800 ml Net 1988.22 ml General appearance: alert, cooperative, no distress Eyes: sclera and conjunctiva clear, EOMI and PERRL, lids normal Throat: no mucous membrane abnormalities Neck: range of motion is intact, no masses, thyroid not enlarged, no adenopathy, jugular venous pressure normal Nodes: no cervical, axillary or inguinal adenopathy Lungs: breath sounds normal and symmetric; no rales or wheezes Heart: regular rhythm, normal S1 and S2, without murmurs, gallops or rubs Abdomen: soft without mass, non-tender, with normal bowel sounds, dressing, c section incision Extremities: no clubbing, cyanosis or edema Impression 1. Placental abruptions at 30 weeks twin status post emergent C- section on 04/18/2020 with hemorrhage 2. Hemorrhagic hypovolemic shock 3. Chronic thrombocytopenia 4. Hypoxic respiratory failure status post mechanical ventilation 5. Chronic B12 folate iron deficiency anemia 6. HCV infection, untreated 7. Polysubstance abuse. Plan -placental abruption, status post emergency resection on 04/22/2020 with hemorrhage, management per OB team. Continues to have minimal vaginal bleedin -the chronic thrombocytopenia is considered multifactorial with B12 folic acid deficiency, She is being treated with IVIG at 1 gram/kilogram and s/p 2 doses (last on 04/19/2020) Solu-Medrol 1 g pulse dose IV daily and will receive 3rd dose today, consider oral steroid taper from tomorrow onwards. Platelets have improved to 165 today. -hemoglobin is 7.5 today, h/h dropped to 6.4 last night and she was transfused 1 unit PRBC. She was noted to have elevated LDH and low haptoglobin, labs repeated today shows haptoglobin has improved to 65 from 9, LDH continues to be elevated, continue to monitor , I will recommend to continue to monitor CBC every 8 hr and to transfuse to keep hemoglobin greater than 7 g and platelet> 50,000. -she continues to have vaginal bleeding status post bakri balloon, management per OB. If the bleeding is not controlled consider embolization -continue iron, B12 and folic acid supplementation. -untreated HCV infection, can address once stable. -polysubstance drug abuse. Discussed with RN Dr Haider (covering for Dr Dave) will assume care from tomorrow onwards * Chen Ba RN - 04/20/2020 11:00 AM CDT Pt resting comfortably in bed at this time. FF @ U, scant lochia rubra. Reports adequate pain control with Percocet. Low transverse incision open to air, well approximated, no drainage, no redness. Tolerating regular diet. Denies difficulty voiding. Will continue to monitor. * Machelle Varner MD - 04/20/2020 8:51 AM CDT R3 OB Post- Note 04/20/2020, 8:51 AM Subjective: [facility] following ext[facility]. Overall, doing well. Very tired this morning. States bleeding is controlled. Denies issues with melas yesterday. Passing gas and voiding spontaneously. Reports some moderate pain since she woke up. Objective: Temp (36hrs) Max:99.5 ??F (37.5 ??C) Patient Vitals for the past 24 hrs: Temp Pulse Resp BP 04/20/20 0555 98.3 ??F (36.8 ??C) -- 22 122/77 04/20/20 0215 98 ??F (36.7 ??C) -- 20 131/67 04/19/20 2327 98.3 ??F (36.8 ??C) 75 18 143/80 04/19/20 2308 98.5 ??F (36.9 ??C) 74 18 135/72 04/19/20 2210 98.1 ??F (36.7 ??C) -- -- 132/58 04/19/20 1800 98.9 ??F (37.2 ??C) -- -- -- 04/19/20 1600 -- -- -- 136/76 04/19/20 1500 -- 70 25 -- 04/19/20 1400 -- 100 26 -- 04/19/20 1300 -- 73 18 -- 04/19/20 1200 -- 67 21 -- 04/19/20 1132 -- 88 -- 148/82 04/19/20 1100 -- 88 26 -- 04/19/20 1000 -- 72 19 -- 04/19/20 0900 -- 86 25 -- Intake/Output Summary (Last 24 hours) at 04/20/2020 0851 Last data filed at 04/20/2020 0555 Gross per 24 hour Intake 3423.09 ml Output 1550 ml Net 1873.09 ml PE: General: awake, oriented; groggy, no acute distress Lungs: CTA B/L Abdomen: BS+. Appropriately tender. Soft, fundus firm below umbilicus. Incision: clean/dry/intact Extremities: no calf tenderness, no palpable cords Data: Recent Labs Component Name 04/19/20 2138 04/19/20 1344 04/19/20 0351 WBC 22.0* 19.8* 19.6* HGB 6.4* 7.4* 7.6* HCT 18.4* 21.5* 21.7* PLTCOUNT 136* 146* 124* Recent Labs Component Name 04/17/20202312/08/19 0301 ABO - - A RHTYPE - - Positive ABORH A POS - - - = values in this interval not displayed. Assessment/Plan: 29 year old year old S/p emergency primary section, POD # 2 1. and delivery complicated by: 1. 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 Patient s/p 6u pRBCs + 4u FFP + 2u Plts + 2u cryoprecipitate 2. Patient delivery, patient given: cytotec 800mcg, hembate 250mcg x2, Methergine, Pitocin, TXA 1. EBL: 4000cc 3. S/p Bakri balloon and pitocin 4. S/p Heme/Onc consultation, recommendations appreciated 1. Goal: Hgb >7, Plts > 50K 2. Solumedrol 1g IV x3d- day 3 3. S/p IVIG 4. Venofer 300mg x3d 5. Replace Folate, B12 6. Labs q8 Hr per Heme 5. Hgb stable: 6.8, given transfusion overnight. Plt 136. Coags stable. 6. Refused blood draw overnight, will try again this AM 2. Hypovolemic shock with acute hypoxic respiratory failure, resolving 1. Rapid response called during immediate post- period (04/18) 2. S/p Levophed drip 3. Extubated on 04/19 4. CTAB 5. Denies any issues this morning 3. DCDA twin 1. Twin A: baby girl, Twin B: baby boy 2. Currently in nursery, doing well x2 3. /breast pump available to help with breast engorgement 4. PSA 1. H/O IVDU, UDS (+) amphetamines on admission 2. Reports use of heroin, Vicodin, methamphetamines in the past 3. Patient NOT candidate for breast feeding 5. HCV 1. Quant (11/2019): 909K 6. Limited PNC 1. Limited visits with [facility] (2) secondary to transportation issues 2. Last visit: 01/2020 2. AFVSS 3. Patient currently NPO, receiving tube feedings 1. Novolog LD SSI 2. Protonix for GI PPx 4. DVT/PE prophylaxis: 1. Risk factors: major surgery, Body mass index is 31.84 kg/m??., state 2. SCDs at present Dispo: Ctn inpatient management Machelle Varner MD 04/20/2020 8:51 AM Associated attestation - Phuong Frazier MD - 04/20/2020 9:24 PM CDT MFM Attending Addendum I have seen and examined the patient with the resident/fellow and agree with their documentation. Physical Exam: Temp (24hrs) Max:98.9 ??F (37.2 ??C) BP 122/77 Pulse 75 Temp 98.3 ??F (36.8 ??C) (Oral) Resp 22 Ht 5' 2 (1.575 m) Wt 174 lb 1.6 oz (79 kg) SpO2 97% BMI 31.84 kg/m2 General: comfortable, alert, cooperative HEENT: normocephalic, atraumatic. Eyes PERRLA Cardiovascular: heart regular rate and rhythm, no pathologic murmurs Pulmonary: respirations unlabored, lungs clear to auscultation, no cough or wheeze Abd: soft, appropriately ttp, Fundus firm Ext: tr edema, nontender. Skin:warm, normal turgor, no rashes nor lesions Neuro: cranial nerves 2-12 grossly intact, intact sensory and motor. I have the following to add to the plan: Hillary Smalls is a 29 year old PPD #2 s/p CD c/b PP hemorrhage and shock Repeat labs today stable. Space labs. Severe HTN. Anti-hypertensive meds initiated. Mag for sz prophyalxis. Thrombocytopenia with heme following, receiving IVIG. ADAT. Cont to monitor UOP. Phuong Frazier MD Maternal Medicine * Marlen Miranda RN - 04/20/2020 7:44 AM CDT Shift summary: Pt rested well throughout shift. Pain has been moderately controlled with PRN percocet. VSS and afebrile. Incision remains intact with well approximated edges. Pt ambulating and voiding without difficulty. Babies in well baby nursery. Significant other remains at bedside for support. Pt verbalized u nderstanding to call with any changes in condition or concerns. Will continue to monitor closely. * Socorro Wynn RN - 04/19/2020 11:42 PM CDT VSS. Percocet given for lower abdominal pain. Fundus firm at U with scant amount of bleeding. Pt upto the bathroom independently, denies HOFFMAN, vision changes, RUQ pain. Tolerating regular diet well. Babies in well baby nursery. 1 unit of RBCs infusing. Report given to ALICE Gee. * Shayna Chirinos MD - 04/19/2020 10:35 PM CDT R4 progress note Recent Labs Component Name 04/19/20 2138 04/19/20 1344 04/19/20 0351 WBC 22.0* 19.8* 19.6* RBC 2.18* 2.59* 2.70* HGB 6.4* 7.4* 7.6* HCT 18.4* 21.5* 21.7* MCV 84.4 83.0 80.4* MCHC 34.8 34.4 35.0 PLTCOUNT 136* 146* 124* NEUTPCT 89.3* 90.8* 85.7* LYMPHPCT 4.0* 4.6* 6.7* BASOPHILPCT 0.1 0.2 0.1 GRANSIMMPCT 2.8* 2.1* 0.8 NEUTABS 19.62* 17.95* 16.84* LYMPHABS 0.87* 0.91* 1.32 BASOABS 0.03 0.03 0.02 Will transfuse an additional unit of RBCs. Repeat labs in AM Shayna Chirinos MD 04/19/2020 10:35 PM * Chen Ba RN - 04/19/2020 7:37 PM CDT Shift Summary: Received patient as a transfer from ICU at 1600. Pt resting comfortably in bed, states no needs at this time. FF @ U, scant lochia rubra. Reports adequate pain control with Percocet. Low transverse incision open to air, well approximated, no drainage, no redness. Tolerating regular diet. Denies difficulty voiding. Pt aware to call staff with any changes. * Chen Ba RN - 04/19/2020 7:34 PM CDT 04/19/201854 Clinician Communication/Critical Test Notification Reason: Condition Update Name of Clinician Notified: Dr. Rodríguez Role: OB Resident Notification Method: Called/Phoned Action No new orders received-Care to Continue Comments: Notified that when patient sleeping SpO2 92% on RA. Patient awakened and SpO2 increased to 95%. She states she feels fine and denies SOB. Lungs CTA. Continuous pulse ox in place. No need for oxygen at this time. Encourage incentive spirometer while awake. * Jenn Christy, PT - 04/19/2020 2:07 PM CDT Physical Therapy Evaluation. PT orders received, chart reviewed for diagnosis and medical systems review.. Nursing consents for PT. Explained purpose of PT and patient consented to participate in therapy. PPE worn by staff: mask - surgical;eye protection;gloves PPE worn by patient: gown - surgical;socks - clean SUBJECTIVE: Patient is a 29 year old female admitted with severe anemia after having sudden vaginalbleeding. She was 38 weeks with twins when she started bleeding at home. In route to the hospital, she started hemorraging. She was found to have placenta abruption and underwent an emergentC-section on 04/17/20. She was extubated on 04/19/20. Home Situation: Type of Residence: Private Residence Lives with:: Significant Other;Other (Comment)(father in law) Steps to Enter: 3 Home Structure: One Story Equipment At Home: None Prior Level of Functioning: Mobility: Ambulate-In Community;Independent;Without Assistive Device;Driving Fallen Within 6 Mos: No Have Help at Home?: Yes, there is help at home now How often is assistance provided?: fiance can assist as needed Activity at Home: Active Oxygen at Home: No Pain assessment: Abdominal pain, unrated. Patient/family stated goal: To see her babies OBJECTIVE: Cognition: A&Ox4 Precautions: abdominal incision Balance: Sitting - Static: Good Sitting - Dynamic: Good Standing - Static: Fair + Standing - Dynamic: Fair + Bed Mobility: Rolling: Minimum Assistance to Left Supine to Sit: Moderate Assistance Transfers: Sit to Stand: Minimal Assistance Stand to Sit: Minimal Assistance Bed to Chair: Minimal Assistance to Left Type of Transfer: Stand Pivot Transfer Mobility: Distance Ambulated: 3 FEET Ambulation: Assistive Device: Gait Belt;Walker-2 Wheeled Ambulation: Level of Assistance: Minimum Assistance Ambulation: Gait Deviations: Antalgic Activity Tolerance/Oxygen Requirements and Vitals: SpO2: 98 % Pulse: 88 BP: 148/82 ASSESSMENT: Patient tolerated treatment well. She complained of abdominal pain upon standing, but was tolerable. Abdominal binder donned prior to transfer. She was able to use the walker to ambulate 3 feet to the chair. Ambulation further not assessed secondary to increased pain. She was resting comfortably in the chair at the end of treatment. Call light and phone in reach with alarm activated. All lines, monitors, IV's, equipment in place and intact pre and post visit. RN, notified of patient's performance/location end of session. PT Darling Mcmahon, present to assist throughout the session. Pt educated in PT plan of care, fall precautions, and benefits of OOB activity. Problem list: decreased strength, decreased balance, decreased endurance Functional limitations: Decreased independence with ambulation/transfers, decreased safety with functional mobility. Rationale for therapy: Patient will benefit from PT to address the above issues. Refer to Plan of Care for PT goals. Please refer to Filed Flowsheet PT Evaluation for further details. RECOMMENDATIONS/PLAN: Continue with skilled PT during her acute care stay. PT Discharge Recommendations: Home If this is the last PT visit, this note serves as the discharge summary. Jenn Christy, PT x [phone] * Turner Castillo MD - 04/19/2020 12:28 PM CDT Oncology Progress Note Clinical Course Ms Smalls is a 29-year-old female admitted with vaginal bleeding, severe thrombocytopenia, severe anemia New Symptoms She is extubated, responds to verbal stimuli, blood chest pains chest pressure chest pressure, nausea, vomiting, abdomen pain Result Recent Labs Component Name 04/19/20 0351 04/18/20 2222 04/18/20 1809 WBC 19.6* 19.4* 17.3* RBC 2.70* 2.34* 2.67* HGB 7.6* 6.8* 7.4* HCT 21.7* 19.0* 21.7* MCV 80.4* 81.2 81.3 MCHC 35.0 35.8 34.1 PLTCOUNT 124* 103* 73* NEUTPCT 85.7* 91.3* 91.1* LYMPHPCT 6.7* 4.9* 5.9* BASOPHILPCT 0.1 0.1 0.1 GRANSIMMPCT 0.8 0.6 0.7 NEUTABS 16.84* 17.74* 15.79* LYMPHABS 1.32 0.96* 1.02* BASOABS 0.02 0.02 0.02 Recent Labs Component Name 04/19/20 0351 04/18/20 0537 04/18/20 0413 04/17/207 SODIUM 137 138 139 138 POTASSIUM 4.2 4.8 4.0 4.3 CHLORIDE 112* 110* 113* 112* CO2 19* 13* 15* 16* BUN 23* 20* 19* 21* CREATININE 0.84 1.02 0.99 1.07 GLUCOSE 136* 306* 202* 67* CALCIUM 7.0* 6.8* 7.1* 7.8* ALT - 22 23 30 ALKPHOS - 192* 208* 334* AST - 34 29 40* TBIL - 0.5 0.4 0.3 TPROT - 4.7* 4.4* 5.3* EGFR >60 >60 >60 60* EGFRAFR >60 >60 >60 >60 ALBUMIN 1.7* 2.6* 2.3* 2.7* Exam Vitals: 04/19/20 0400 04/19/20 0500 04/19/20 0600 04/19/20 0822 BP: Pulse: 73 71 72 70 Resp: Temp: 97.7 ??F (36.5 ??C) 97.5 ??F (36.4 ??C) 97.5 ??F (36.4 ??C) SpO2: 99% 99% 98% 99% Weight: 174 lb 1.6 oz (79 kg) Height: Intake/Output Summary (Last 24 hours) at 04/19/2020 1228 Last data filed at 04/19/2020 0600 Gross per 24 hour Intake 5389.97 ml Output 980 ml Net 4409.97 ml General appearance: alert, cooperative, no distress Eyes: sclera and conjunctiva clear, EOMI and PERRL, lids normal Throat: no mucous membrane abnormalities Neck: range of motion is intact, no masses, thyroid not enlarged, no adenopathy, jugular venous pressure normal Nodes: no cervical, axillary or inguinal adenopathy Lungs: breath sounds normal and symmetric; no rales or wheezes Heart: regular rhythm, normal S1 and S2, without murmurs, gallops or rubs Abdomen: soft without mass, non-tender, with normal bowel sounds, dressing Extremities: no clubbing, cyanosis or edema Impression 1. Placental abruptions at 30 weeks twin status post emergent C- section on 04/18/2020 with hemorrhage 2. Hemorrhagic hypovolemic shock 3. Chronic thrombocytopenia 4. Hypoxic respiratory failure status post mechanical ventilation 5. Chronic B12 folate iron deficiency anemia 6. HCV infection, untreated 7. Polysubstance abuse. Plan -placental abruption, status post emergency resection on 04/22/2020 with hemorrhage, management per OB team. -the chronic thrombocytopenia is considered multifactorial with B12 folic acid deficiency, She is being treated with IVIG at 1 gram/kilogram and will receive the 2nd dose today and Solu-Medrol 1 g pulse dose IV day 2 today will complete a total of 3 days. Platelets have improved to 124 today. -hemoglobin is 7.6 today, she was transfused overnight with 1 unit of packed RBC for hemoglobin of 6.8, I will recommend to continue to monitor CBC every 8 hr and to transfuse to keep hemoglobin greater than 7 g and platelet> 50,000. -she continues to have vaginal bleeding status post bakri balloon, management per OB. If the bleeding is not controlled consider embolization -she was intubated and has been extubated today, -continue IV iron, B12 and folic acid supplementation. -untreated HCV infection, can address once stable. -polysubstance drug abuse. Discussed with ICU attending, plan for transfer out of ICU today. * Cintia Tomas RCP - 04/19/2020 8:38 AM CDT Pt extubated mid vent check, extubated to room air. Doing well at this time RT will continue to follow. * Ron Quinn MD - 04/19/2020 6:36 AM CDT R4 OB Post- Note 04/19/2020, 6:36 AM Subjective: Hillary Smalls just recently extubated. Groggy, but responsive. Overall, doing well. States she wants to see her babies. Reports pain is mild at present. Denies difficulty breathing. Objective: Temp (36hrs) Max:99.5 ??F (37.5 ??C) Patient Vitals for the past 24 hrs: Temp Pulse Resp BP 04/19/20 0600 97.5 ??F (36.4 ??C) 72 20 -- 04/19/20 0500 97.5 ??F (36.4 ??C) 71 20 -- 04/19/20 0400 97.7 ??F (36.5 ??C) 73 20 -- 04/19/20 0300 98.1 ??F (36.7 ??C) 75 20 -- 04/19/20 0200 98.4 ??F (36.9 ??C) 76 20 -- 04/19/20 0109 98.6 ??F (37 ??C) 77 20 -- 04/19/20 0100 98.6 ??F (37 ??C) 82 -- 04/19/20 0000 99 ??F (37.2 ??C) 88 -- 04/18/20 2347 99 ??F (37.2 ??C) 85 -- 04/18/20 2332 99 ??F (37.2 ??C) 88 20 131/69 04/18/20 2300 99.1 ??F (37.3 ??C) 103 -- 04/18/20 2200 99.5 ??F (37.5 ??C) 99 -- 04/18/20 2100 99.3 ??F (37.4 ??C) 97 -- 04/18/20 2000 99 ??F (37.2 ??C) 90 -- 04/18/20 1900 98.6 ??F (37 ??C) 85 -- 04/18/20 1845 98.4 ??F (36.9 ??C) 86 -- 04/18/20 1830 98.4 ??F (36.9 ??C) 84 -- 04/18/20 1815 98.6 ??F (37 ??C) 85 -- 04/18/20 1800 98.6 ??F (37 ??C) 82 -- 04/18/20 1745 98.4 ??F (36.9 ??C) 86 -- 04/18/20 1730 98.4 ??F (36.9 ??C) 89 -- 04/18/20 1715 98.4 ??F (36.9 ??C) 85 -- 04/18/20 1703 -- 93 -- -04/18/20 1700 98.4 ??F (36.9 ??C) 83 20 -- 04/18/20 1645 98.4 ??F (36.9 ??C) 84 20 -- 04/18/20 1630 98.4 ??F (36.9 ??C) 82 20 -- 04/18/20 1615 98.4 ??F (36.9 ??C) 90 20 -- 04/18/20 1600 98.2 ??F (36.8 ??C) 93 20 -- 04/18/20 1545 98.4 ??F (36.9 ??C) 91 20 -- 04/18/20 1530 98.6 ??F (37 ??C) 87 20 -- 04/18/20 1515 98.4 ??F (36.9 ??C) 87 20 -- 04/18/20 1500 98.6 ??F (37 ??C) 83 20 -- 04/18/20 1445 98.6 ??F (37 ??C) 82 20 -- 04/18/20 1430 98.6 ??F (37 ??C) 88 -- 04/18/20 1415 98.8 ??F (37.1 ??C) 85 -- 04/18/20 1400 98.8 ??F (37.1 ??C) 82 -- 04/18/20 1345 98.8 ??F (37.1 ??C) 81 20 -- 04/18/20 1330 98.6 ??F (37 ??C) 83 20 -- 04/18/20 1315 98.6 ??F (37 ??C) 82 20 -- 04/18/20 1300 98.6 ??F (37 ??C) 85 20 -- 04/18/20 1245 98.6 ??F (37 ??C) 88 20 -- 04/18/20 1243 -- 90 -- -- 04/18/20 1230 98.8 ??F (37.1 ??C) 89 20 -- 04/18/20 1215 99 ??F (37.2 ??C) 93 20 -- 04/18/20 1200 99 ??F (37.2 ??C) 92 -- 04/18/20 1145 99 ??F (37.2 ??C) 94 -- 04/18/20 1144 99 ??F (37.2 ??C) 99 -- 04/18/20 1130 99 ??F (37.2 ??C) 100 -- 04/18/20 1115 99 ??F (37.2 ??C) 101 -- 04/18/20 1100 98.8 ??F (37.1 ??C) 105 -- 04/18/20 1045 98.4 ??F (36.9 ??C) (!) 127 -- 04/18/20 1030 98.2 ??F (36.8 ??C) (!) 110 -- 04/18/20 1020 98.1 ??F (36.7 ??C) (!) 110 -- 04/18/20 1015 97.7 ??F (36.5 ??C) 106 -- 04/18/20 1000 97.5 ??F (36.4 ??C) (!) 117 -- 04/18/20 0945 97.3 ??F (36.3 ??C) (!) 119 -- 04/18/20 0930 97.2 ??F (36.2 ??C) (!) 132 -- 04/18/20 0915 97.2 ??F (36.2 ??C) (!) 137 -- 04/18/20 0900 96.8 ??F (36 ??C) (!) 137 -- 04/18/20 0845 96.6 ??F (35.9 ??C) (!) 134 20 -- 04/18/20 0830 96.6 ??F (35.9 ??C) (!) 137 -- 04/18/20 0815 (!) 96.1 ??F (35.6 ??C) (!) 141 20 -- 04/18/20 0800 (!) 96.1 ??F (35.6 ??C) (!) 135 -- 04/18/20 0746 -- (!) 146 -- -- 04/18/20 0745 (!) 96.1 ??F (35.6 ??C) (!) 147 23 -- 04/18/20 0730 (!) 95.9 ??F (35.5 ??C) -- -- -- 04/18/20 0729 -- (!) 147 20 -- 04/18/20 0724 -- (!) 144 20 -- 04/18/20 0719 -- (!) 144 23 -- 04/18/20 0715 (!) 95.7 ??F (35.4 ??C) -- -- -- 04/18/20 0714 -- (!) 136 21 -- 04/18/20 0709 -- (!) 136 20 -- 04/18/20 0704 -- (!) 136 21 -- 04/18/20 0700 (!) 95.2 ??F (35.1 ??C) -- -- -- 04/18/20 0659 -- (!) 137 20 -- 04/18/20 0654 -- (!) 136 20 -- 04/18/20 0649 -- (!) 133 20 -- 04/18/20 0645 (!) 94.8 ??F (34.9 ??C) -- -- -- 04/18/20 0644 -- (!) 130 20 -- 04/18/20 0639 -- (!) 128 19 -- Intake/Output Summary (Last 24 hours) at 04/19/2020 0636 Last data filed at 04/19/2020 0600 Gross per 24 hour Intake 68533.95 ml Output 1980 ml Net 8171.95 ml PE: General: awake, oriented; groggy, no acute distress Lungs: CTA B/L Abdomen: BS+. Appropriately tender. Soft, fundus firm below umbilicus. Incision: clean/dry/intact Extremities: no calf tenderness, no palpable cords Pelvis: Bakri removed; no blood in bag, approximately 25cc bright and dark red blood in tubing; at time of removal, small amount of dark red blood from vagina, no active bleeding or clots appreciated Data: Recent Labs Component Name 04/19/20 0351 04/18/20 2222 04/18/20 1809 WBC 19.6* 19.4* 17.3* HGB 7.6* 6.8* 7.4* HCT 21.7* 19.0* 21.7* PLTCOUNT 124* 103* 73* Recent Labs Component Name 04/17/20202312/08/19 0301 ABO - - A RHTYPE - - Positive ABORH A POS - - - = values in this interval not displayed. Assessment/Plan: 29 year old year old S/p emergency primary section, POD # 1. 1. and delivery complicated by: 1. 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 Patient s/p 6u pRBCs + 4u FFP + 2u Plts + 2u cryoprecipitate 2. Patient delivery, patient given: cytotec 800mcg, hembate 250mcg x2, Methergine, Pitocin, TXA 1. EBL: 4000cc 3. Currently with Bakri in place, Pitocin running for 24 hours 4. S/p Heme/Onc consultation, recommendations appreciated 1. Goal: Hgb >7, Plts > 50K 2. Solumedrol 1g IV x3d, IVIG x2d 3. Venofer 300mg x3d 4. Replace Folate, B12 5. Hgb stable: 7.6, Plts: 124, PT/PTT/INR stable: 12.6/27.8/1.0 2. Hypovolemic shock with acute hypoxic respiratory failure, resolving 1. Rapid response called during immediate post- period (04/18) 2. Patient currently being managed by ICU, currently on Levophed drip 3. Patient recently extubated, still groggy from sedation 3. DCDA twin 1. Twin A: baby girl, Twin B: baby boy 2. Currently in nursery, doing well x2 3. /breast pump available to help with breast engorgement 4. PSA 1. H/O IVDU, UDS (+) amphetamines on admission 2. Reports use of heroin, Vicodin, methamphetamines in the past 3. Patient NOT candidate for breast feeding 5. HCV 1. Quant (11/2019): 909K 6. Limited PNC 1. Limited visits with [facility] (2) secondary to transportation issues 2. Last visit: 01/2020 2. AFVSS 3. Patient currently NPO, receiving tube feedings 1. Novolog LD SSI 2. Protonix for GI PPx 4. DVT/PE prophylaxis: 1. Risk factors: major surgery, Body mass index is 31.84 kg/m??., state 2. SCDs at present; not good candidate given hemodynamic instability and blood loss, coagulopathy Dispo: Continue management per ICU team, plan for transfer to [facility] this afternoon once stabilized s/p extubation. Replace blood products PRN. Monitor vaginal bleeding with Bakri balloon out, continuepitocin x12 hours. Recommend abdominal binder be placed, if able. Appreciate consulting services rec ommendations and management. Ron Quinn MD 04/19/2020 6:36 AM Associated attestation - Phuong Frazier MD - 04/19/2020 2:13 PM CDT MFM Attending Addendum I have seen and examined the patient with the resident/fellow and agree with their documentation. Extubated, no longer sedated. Physical Exam: Temp (24hrs) Max:99.5 ??F (37.5 ??C) BP 148/82 Pulse 88 Temp 97.5 ??F (36.4 ??C) Resp 20 Ht 5' 2 (1.575 m) Wt 174 lb 1.6 oz (79 kg) SpO2 98% BMI 31.84 kg/m2 General: comfortable, alert, cooperative HEENT: normocephalic, atraumatic. Eyes PERRLA Cardiovascular: heart regular rate and rhythm, no pathologic murmurs Pulmonary: respirations unlabored, lungs clear to auscultation, no cough or wheeze Abd: soft, nontender, Fundus firm, at umbilicus Ext: tr edema, nontender. Skin:warm, normal turgor, no rashes nor lesions Neuro: cranial nerves 2-12 grossly intact, intact sensory and motor. I have the following to add to the plan: Hillary Smalls is a 29 year old PPD #2 Bleeding controlled at this time, coags stable. Bakri removed this AM. Plan pit x 12 hours post bakri removal. Still anemic from acute blood loss, however stable. Heme following for hx of thrombocytopenia, in IVIG. Advance diet today. Johnson can be removed tonight vs tomorrow. Transfer to [facility] when cleared by ICU Phuong Frazier MD Maternal Medicine * Nimesh Luu MD - 04/19/2020 6:09 AM CDT Internal Medicine Resident ICU Progress Note Admission Date: 04/17/2020 Hospital Day: 2 Attending: Dr. Brown Resident/[employer]. Revenue Officer: Drs. Crowe/ Jus Code Status: Full Code Events since last progress note: Patient seen and examined at the bedside. Received 1 unit of PRBC overnight. 125 cc out through Bikari balloon. Good UOP. 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 Patient reported she got up to use the bathroom and noticed a gush of blood like Koolaid . Was lost to follow-up in [facility] for several months due to transportation and financial difficulties. That hospital did not have any ObGyn staff so she was transferred. During transport, nurses noticed blood clots passing and a continuous trickle of blood from the vagina, increased with contractions. Initial plan was to transfer the patient to [place], the nearest [facility], however, [place] would not accept the patient and she was brought to [facility]. On admission to [facility] the patient was actively bleeding with Plt count of 36,000. heartrate monitoring demonstrated decelerations and she was emergently taken to the OR for forsuspected placental abruption (confirmed during procedure). Post-op, the patient was found to be pale and tachycardic. EBL during C/S was 4L. Patient received 4 units of platelets, 1 unit of PRBC, 1 unit of FFP, methergine, tranexamic acid, 800 mcg cytotec, hemabate 250 mcg x 2, pitocin, and dexamethasone prior to coming to the ICU. On arrival in the ICU she was hemodynamically unstable (hypothermic, hypotensive, and tachycardic).She received a ying stick, was intubated and arterial and central lines were placed. The patient received additional 4 units of PRBC, 4 units of FFP, and 2 of cryo. Bakri balloon was placed into the fundus and inflated with 200 cc of NS. Placement was confirmed with U/S. Vaginal packing also placed.Hematology consult was placed. (04/18): IVIG (1g/kg), replete volume, IV iron, folate, vitamin b12, IVF. Replace blood products as needed. (04/19): Sim balloon removed. Extubated. Pt doing well. IVIG (1g/kg). Review of Systems Unable to perform ROS: Intubated OBJECTIVE 12 lb 1.6 oz Intake/Output Summary (Last 24 hours) at 04/19/2020 0609 Last data filed at 04/19/2020 0600 Gross per 24 hour Intake 29022.95 ml Output 1980 ml Net 8171.95 ml Temp (24hrs), Av ??F (36.7 ??C), Min:94.5 ??F (34.7 ??C), Max:99.5 ??F (37.5 ??C) Vitals: 04/19/20 0300 04/19/20 0400 04/19/20 0500 04/19/20 0600 BP: Pulse: 75 73 71 72 Resp: 20 Temp: 98.1 ??F (36.7 ??C) 97.7 ??F (36.5 ??C) 97.5 ??F (36.4 ??C) 97.5 ??F (36.4 ??C) SpO2: 99% 99% 99% 98% Weight: 174 lb 1.6 oz Height: Physical Exam Constitutional: General: She is not in acute distress. Appearance: She is normal weight. She is not toxic-appearing. Interventions: She is intubated. HENT: Head: Normocephalic and atraumatic. Mouth/Throat: Pharynx: Oropharynx is clear. Eyes: Pupils: Pupils are equal, round, and reactive to light. Cardiovascular: Rate and Rhythm: Regular rhythm. Tachycardia present. Pulses: Normal pulses. Heart sounds: Normal heart sounds. No murmur. Pulmonary: Effort: Pulmonary effort is normal. No respiratory distress. She is intubated. Breath sounds: Normal breath sounds. Abdominal: Palpations: Abdomen is soft. Comments: Fundus felt below the level of the umbilicus and appropriately tender Genitourinary: Comments: Sim balloon in place with active bleeding being evacuated through tubing Musculoskeletal: Right lower leg: Edema present. Left lower leg: Edema present. Neurological: Comments: Sedated. Rass -2 Psychiatric: Comments: Withdrawn. Blunted affect POCUS: Hyperdynamic LV with no pericardial effusion appreciated. IVC collapsed. Good lung slide bilaterally. No pleural effusion or consolidation appreciated. MAR reviewed: yes Antimicrobial day: None Labs: I have reviewed results from the last 24 hours and are remarkable for the following: Recent Labs Component Name 04/19/2035004/18/20222104/18/20 180 WBC 19.6* 19.4* 17.3* RBC 2.70* 2.34* 2.67* HGB 7.6* 6.8* 7.4* HCT 21.7* 19.0* 21.7* MCV 80.4* 81.2 81.3 MCHC 35.0 35.8 34.1 PLTCOUNT 124* 103* 73* NEUTPCT 85.7* 91.3* 91.1* LYMPHPCT 6.7* 4.9* 5.9* BASOPHILPCT 0.1 0.1 0.1 GRANSIMMPCT 0.8 0.6 0.7 NEUTABS 16.84* 17.74* 15.79* LYMPHABS 1.32 0.96* 1.02* BASOABS 0.02 0.02 0.02 Recent Labs Component Name 04/19/20 0351 04/18/20 0537 04/18/20 0413 SODIUM 137 138 139 POTASSIUM 4.2 4.8 4.0 CHLORIDE 112* 110* 113* CO2 19* 13* 15* BUN 23* 20* 19* CREATININE 0.84 1.02 0.99 GLUCOSE 136* 306* 202* CALCIUM 7.0* 6.8* 7.1* EGFR >60 >60 >60 EGFRAFR >60 >60 >60 Recent Labs Component Name 04/19/20 0350 04/18/20222104/18/20 1809 INR 1.0 1.1 1.1 PTT 27.8 29.4 32.0 Recent Labs Component Name 04/17/202056 COLORUA Yellow CLARITYUA Slt Cloudy* SPECGRAVUA 1.015 PHUA 6.0 PROTEINUA 1+* BLOODUA 3+* LEUKOCYTEUA Negative NITRITEUA Negative GLUCOSEUA Negative KETONEUA Negative BILIRUBINUA Negative UROBILINUA Negative WBCUA 6-10* RBCUA >100* BACTUA None Seen UDS positive for amphetamines Fibrinogen: 325 D-dimer: 3.75 HIV panel: Negative Syphilis Ab: Negative Recent Labs Component Name 04/18/20 1221 04/18/20 0957 04/18/20 0743 FIO2 30 30 40 PH 7.39 7.35 7.31* PCO2 34* 33* 36 BE -4.3* -7.4* -7.8* HCO3 20* 18* 18* PO2 108* 127* 147* O2SAT 98 98 99 Recent Labs Component Name 04/19/20 0351 04/18/20 1225 04/18/20 0937 LACTICACID 1.2 2.8* 4.6* Micro: Urine culture: 50,000-100,000 CFU/mL E. Coli, 50,000-100,000 CFU/mL Group B Strep Imaging: I have reviewed imaging studies from the last 24 hours and is summarized below: No new imaging ASSESSMENT/CLINICAL REASONING #Acute on chronic anemia (iron deficiency) secondary to hemorrhage #Acute on chronic thrombocytopenia, likely ITP, 2/2 consumption #Leukocytosis likely 2/2 solumedrol administration #H/o IV drug abuse #UDS positive for amphetamines #Untreated HCV #IUP di/di twins at 38 wks s/p emergent C/S #Hypovolemic shock 2/2 hemorrhage s/p 7U PRBC, 4U FFP, 4U Platelets, and 2 cryoprecipitate - RESOLVED #Acute hypoxic respiratory failure in the setting of shock - RESOLVED #Metabolic acidosis likely 2/2 lactic acidosis-RESOLVED PLAN: NEURO: Sedation: None Analgesia: Percocet 5-325 Q6H PRN with movement Get out of bed Remove central line and arterial line PULM: Ventilation: Room air Encourage incentive spirometry CV: Pressors: None MAP > 65 RENAL: Fluids: Reduced LR to 100 mL/hr Will d/c LR at 1 pm ID: ABX: None ENDO: Insulin: None HEM-ONC: DVT prophylaxis: SCD's Pitocin, management per OB IVIG (1g/kg) 2nd dose today Solumedrol 1g x 3 days (Day 2 of 3) Venofer 300 mg x 3 days (Day 2 of 3) Replace folate, B12 Hematology on board. Recommendations appreciated. Maintain Hgb > 7.0 GI: Diet/TF: Advance to regular diet as tolerated Stress ulcer prophylaxis: No longer indicated Disposition: Plan to move up to Ob floor later this afternoon. D/w ICU Attending, Resident, RN Nimesh Luu MD 04/18/2020 6:09 AM Associated attestation - Clem Brown MD - 04/19/2020 3:41 PM CDT [facility] Teaching attending note Date of service: 04/19/2020 I have personally seen and evaluated the patient, reviewed the lab result and radiology imagine, please refer to resident note for details. 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 who presented to [facility] ED at 38w0d with leakage of bloody fluid. Patient reported she got up to use the bathroom and noticed a gush of blood like Koolaid . During transport, nurses noticed blood clots passing and a continuous trickle of blood from the vagina, increased with contractions. Initial plan was to transfer the patient to [place], the nearest hospital, however, [place] would not accept the patient and she was brought to [facility]. On admission to [facility] the patient was actively bleeding with Plt count of 36,000. heartrate monitoring demonstrated decelerations and she was emergently taken to the OR for forsuspected placental abruption (confirmed during procedure). Post-op, the patient was found to be pale and tachycardic. EBL during C/S was 4L. Patient received 4 units of platelets, 1 unit of PRBC, 1 unit of FFP, methergine, tranexamic acid, 800 mcg cytotec, hemabate 250 mcg x 2, pitocin, and dexamethasone prior to coming to the ICU. On arrival in the ICU she was hemodynamically unstable (hypothermic, hypotensive, and tachycardic).She received a ying stick, was intubated and arterial and central lines were placed. The patient received additional 4 units of PRBC, 4 units of FFP, and 2 of cryo. Bakri balloon was placed into the fundus and inflated with 200 cc of NS. Placement was confirmed with U/S. Vaginal packing also placed. Problem list: Principal Problem: Hemorrhagic shock Active Problems: Acute respiratory failure Acute blood loss anemia Twin Chronic idiopathic thrombocytopenia Polysubstance abuse Hepatitis C virus infection without hepatic coma Plan: Vent support, fSBT to extubation BP control, keep MAP>65, Hydration Keep Hgb>7, Serial H/H Steroids and IVIg and per hematology GI ppx Glycemic control DVT ppx- SCD's Pain management OOB PT/OT Prognosis: Fair Code Status: Full Code I personally spent 50 minutes providing critical care services, time was exclusive to this patient and dose not include time spent on teaching or in procedures. Clem Brown MD 04/19/2020 3:39 PM Critical Care Medicine * Evans Becker RN - 04/19/2020 5:04 AM CDT Problem: Potential for Urinary Catheter-Associated Infection Goal: Signs and Symptoms of urinary catheter-associated infection are avoided Outcome: Ongoing Note: -Assess for s/s of infection -Assess perineal skin -Provide corine-care -Consider early removal * Pa Bergeron RN - 04/19/2020 12:[address] Gracia notified / phone, pt fundus firm at /U deviated to the Right. Lochia scant rubra on corine pad, 25 ml output bright red lochia from sim. IV Pitocin continues at 125 ml / IV. Will continue to monitor. * Perla Taylor RN - 04/18/2020 5:29 PM CDT Problem: Safety related to restraint use Goal: Absence of injury while restrained Outcome: Ongoing Note: Patient remains intubated and sedated, unable to contract for safety. Soft wrist restraints remain in place bilaterally. Will continue to monitor. * Miladys Parker RN - 04/18/2020 4:02 PM CDT A Chart Review has been conducted by Case Management. Anticipated level of care at discharge: Home Discharge Plan: home Comments: Sw following for positive UDS and need for resources for safe discharge. No family present at time of my arrival Emergent C Section with delivery of twins. Hemorrhagic shock, AHRF. Intubated, blood transfusions. Basic Needs Assessment (BNA) Score: 7 Anticipated Discharge Date: 04/22/20 PCP: Alejandro Blevins MD Per nursing assessments: Transportation at discharge: Family Transportation (who): TBD Division Merchandise Manager/Support: Division Merchandise Manager person: Home/Functional Status: Functional and Cognitive Status Is person deaf or have serious hearing difficulty?: No Is person blind or have serious difficulty seeing?: No Does person have serious difficulty walking/climbing stairs?: No Does person have difficulty dressing/bathing?: No Does person have difficulty doing errands alone?: No Does person have difficulty concentrating/remembering/making decisions?: No Equipment with patient: None Assistive Devices: None ?. Will continue to follow. For any questions or needs please contact: Bulk Mail Technician Name/Phone number: Miladys Parker RN [phone] * Helena Fraser MD - 04/18/2020 3:03 PM CDT R4 OB Update Note In to room for bedside ultrasound. Uterus with bakri balloon in place, no blood clot above balloon.Balloon in place and positioned correctly. She had an episode of bleeding at 9am but since that time bleeding has been light. Will keep Bakri balloon in place until tomorrow morning. CBC: Recent Labs Component Name 04/18/20 1429 04/18/20 0930 04/18/20 0753 04/18/20 0750 WBC 12.4* 16.9* - 17.6* HGB 7.7* 6.3* - 8.2* HCT 21.9* 18.8* - 25.1* PLTCOUNT 48* 54* 51* 53* Coagulation: Recent Labs Component Name 04/18/20 1429 04/18/20 0929 04/18/20 0753 PT 13.8 14.3 13.8 INR 1.1 1.2* 1.1 Helena Fraser MD 04/18/2020 4:35 PM * Genevieve Reece MSW - 04/18/2020 2:20 PM CDT SW involved to provide resources and support to pt as needed for a safe discharge. See social work notes. JAYLYN James Office Ascom * Mariya Ray - 04/18/2020 11:01 AM CDT # [id number] Machine Learning Intern was in the hallway near the elevator and saw patient's mother looking for the ICU. Patient's mother, Brittany, seemed anxious and distressed. Machine Learning Intern accompanied Brittany to the ICU hallway and alerted patient's RN of Brittany's presence. RN provided Brittany with a brief update. RN was given Brittany'snumber to call once doctors are free to provide an update on patient's condition. Brittany informed dressed poultry grader that patient delivered twins (boy and girl) earlier this morning. Rc Mariee, also present on the 6th floor. Patient has a pre- existing blood platelet issue. Per Brittany, patient does not know she delivered her babies. Patient also as a 10yo and 13 yo. Machine Learning Intern provided supportive presence and attentive listening to Brittany who was distressed throughout dressed poultry grader's time with her. Brittany wanted to return to the 6th floor to be with Rc and the babies in hopes of also getting some rest. Please call Brittany on her cell when doctors are available to provide an update. Pastoral Care remains available as needed/requested. Mariya Ray [facility] Pastoral Care pager - Call [phone] (Mon-Fri: 7AM - 9PM and Sat/Sun 7AM - 3PM). Pastoral Care vice president of consulting services pager - Call [phone] (outside of the times listed above) and enter a 10 digit call back number. 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 * Boy Gonzalez, PT - 04/18/2020 8:56 AM CDT Attempted to see patient for physical therapy. Per patch machine operator, patient not appropriate for PT evaland treat early mobilization at this time. Patient currently intubated and sedated. Will attempt tosee patient at a later date. Boy Gonzalez PT ASCOM [id number] * Marisa James MD - 04/18/2020 8:28 AM CDT LATE ENTRY FROM 7A Called to bedside for continued vaginal bleeding. Bakri balloon and vaginal packing removed. Bimanual exam performed and large clots again removed. Watery, red blood continued to trickle out the vagina. The Bakri balloon was replaced to the fundus and inflated with 200cc of NS. Proper placement was confirmed with BSUS. Vaginal packing x1 placed and tied to the Bakri balloon for aid in removal. Suspect patient will continue to bleed vaginally until coagulopathy is corrected. Cont to monitor closely. Dr. James also at bedside Afsaneh Sandoval MD 04/18/2020 8:31 AM Late entry addendum: Agree with above. BSUS showed clot in the MARVIN and unable to visualize Bakri, which was in the vagina. It was deflated/vag packing removed and clots expressed from the uterus, then Bakri replaced in the fundus. Vaginal packing replaced. Discussed continued correction of coagulopathy with ICU as main issue is not uterine atony. Marisa James MD * Marisa James MD - 04/18/2020 7:05 AM CDT Images from the original note were not included. Patient Name: Hillary Smalls Patient Age: [age] year old Today's Date: 04/18/2020 DELIVERY SUMMARY Estimated Date of Delivery: 05/01/20 Delivery Summary Patient Information Patient Name Hillary Smalls ([id number]) Sex Female OB History 3 Para 3 Term 3 0 AB 0 Living 4 SAB TAB Ectopic Multiple 1 Live Births 4 1 Outcome: Term Date: 2004 Sex: F Delivery: Vag-Spont Living: MARTHA Weight: 3062 g (6 lb 12 oz) 2 Outcome: Term Date: 2007 Sex: M Delivery: Vag-Spont Living: MARTHA Weight: 3345 g (7 lb 6 oz) 3A Outcome: Term Date: 04/18/20 GA: 38w1d Sex: F Delivery: Living: MARTHA Name: SERINA,BABY GIRL 1 HILLARY Weight: 2640 g (5 lb 13.1 oz) Anes: General PTL: N A1: 6 A5: 7 Complications: Intolerance Location: [facility] Delivering Clinician: Marisa James MD 3B Outcome: Term Date: 04/18/20 GA: 38w1d Sex: M Delivery: Living: MARTHA Name: SERINABABY BOY 2 HILLARY Weight: 2640 g (5 lb 13.1 oz) Anes: General PTL: N A1: 5 A5: 8 Complications: Intolerance Location: [facility] Delivering Clinician: Marisa James MD Transcribed Labs Row Name 04/17/20204904/17/202044 RH (Manually Reproduced) -- Positive Blood Type (Manually Reproduced) -- A Syphilis Serology (Manually Reproduced) Negative Negative HIV (Manually Reproduced) Negative Negative Date of HIV Lab 12/19/19 12/05/19 Hepatitis B Surface Antigen (Manually Reproduced) -- Negative Hepatitis C (Manually Reproduced) -- Positive Rubella Status ( Manually Reproduced) -- Immune Labor Length 3rd stage: 0h 02m Blood Loss Admission (Current) from 04/17/2020 in [facility] 4 ICU MEDICAL Estimated Blood Loss -- Quantitated Blood Loss 190 ml Venous Cord Blood Gas Results (Last 2 results in the past 4 days) pH PCO2 PO2 HCO3 BE O2 Sat 04/18/20 0312 6.98 Comment: LL 75 Comment: HH 18 Comment: L 17 Comment: L -15.6 26 04/18/20 0307 7.09 Comment: L 58 Comment: H 28 17 Comment: L -13.1 54 Arterial Cord Blood Gas Results (Last 2 results in the past 4 days) pH pCO2 pO2 HCO3 BE O2 Sat 04/18/20 0312 6.92 Comment: LL 89 Comment: HH -- Comment: < 18.0 Comment: L -16.3 -- Comment: < 04/18/20 0307 7.08 Comment: LL 64 Comment: H 14 Comment: L 18.4 Comment: L -12.5 22 Brock Smalls [[id number]] Patient Information Patient Name Brock Smalls ([id number]) Sex Female Anesthesia Method: Petrographer Events labor?: No steroids: None GBS Status: unknown Antibiotic: none Number of Antibiotic Doses: 0 Rupture Date: 04/18/20 Time: 252 Rupture type: Spontaneous, Ruptured, Patient Denies Leaking Fluid color: Bloody Fluid odor: Normal Odor Augmentation: Oxytocin Indications for augmentation: Ineffective Contraction Pattern Labor complications: Intolerance Delivery Details Forceps attempted?: No Vacuum extractor attempted?: No Presentation: Delivery (Maternal) Placenta Date/time: 04/18/2020 025 Disposition: Lab Other Delivery Procedures/Provider Comments Delivery - Physician I was present at delivery (physician name): Counts Idanha Instruments Lap Pads Sponges Initial counts Added to counts Final counts Delivery () Delivery Date: 04/18/20 Delivery Time: 2:53 AM Delivery type: Trial of labor?: No categorization: Primary priority: Emergency Indications for : bradycardia, Nonreassuring tracing Incision type: Low Transverse Apgars Living status: Living Apgars: 1 min.: 5 min.: 10 min.: 15 min.: 20 min.: Skin color: 1 1 1 Heart rate: 2 2 2 Reflex irritability: 1 2 2 Muscle tone: 1 1 1 Respiratory effort: 1 1 2 Total: 6 7 8 Apgars assigned by: ANNABELLA TOMPKINS DO Delivery [place] Stabilization Suction Method: Catheter Secretions (Amount in Comment): Red Airway Support: CPAP Thermoregulation Support: Cap, Overhead Warmer Description of baby: Infant was vigorous at , delayed cord clamping performed. Placed under radiant warmer, HR >100, decreased tone and irritability. Initial pulse ox reading in 70s, remainedin 70s at 5 minutes so CPAP was initiated with FiO2 up to 40%. FiO2 was weaned down and she was on room air by 15 minutes of life with good respiratory effort, improved tone and irritability, sats >95%. Cord Vessels: 3 Vessels Delayed cord clamping?: No Cord blood disposition: Discard Gases sent?: Yes, Venous, Arterial Stem cell collection (by )?: No Measurements Weight: 2640 g Pounds and Ounces: 5 lb 13.1 oz Length: 18.5 Head circumference: 12.6 Chest circumference: Disposition: [place] Feeding and Elimination Mother's Feeding Choice During Stay ( Core Measure PC05): Voided in Delivery Room?: No Stooled in Delivery Room?: Yes Brock Smalls 2 [[id number]] Patient Information Patient Name Brock Smalls 2 ([id number]) Sex Male Anesthesia Method: Petrographer Events labor?: No steroids: None GBS Status: unknown Antibiotic: none Number of Antibiotic Doses: 0 Rupture Date: 04/18/20 Time: 0253 Rupture type: Spontaneous, Ruptured, Patient Denies Leaking Fluid color: Bloody Fluid odor: Normal Odor Augmentation: Oxytocin Indications for augmentation: Ineffective Contraction Pattern Labor complications: Intolerance Delivery Details Forceps attempted?: No Vacuum extractor attempted?: No Presentation: Delivery (Maternal) Placenta Date/time: 04/18/2020 0256 Disposition: Lab Other Delivery Procedures/Provider Comments Delivery - Physician I was present at delivery (physician name): Counts Idanha Instruments Lap Pads Sponges Initial counts Added to counts Final counts Delivery ([place]) Delivery Date: 04/18/20 Delivery Time: 2:54 AM Delivery type: Trial of labor?: Yes categorization: Primary priority: Emergency Indications for : Nonreassuring tracing Incision type: Low Transverse Apgars Living status: Living Apgars: 1 min.: 5 min.: 10 min.: 15 min.: 20 min.: Skin color: 0 1 Heart rate: 2 2 Reflex irritability: 1 2 Muscle tone: 1 1 Respiratory effort: 1 2 Total: 5 8 Apgars assigned by: LE HUDSON Delivery Stabilization Equipment Checked by: LE Hudson Vigorous at ? (Heart rate greater than 100, normal respirations and normal muscle tone): No Suction Method: Suction Trap Secretions (Amount in Comment): Thin, Clear Requires more than warming, stimulation, and suction?: Yes, See 's Chart Airway Support: CPAP via T-Piece Cord Vessels: 3 Vessels Delayed cord clamping?: No Time delayed: 30 seconds or less Cord blood disposition: Lab Gases sent?: Yes, Venous, Arterial Stem cell collection (by )?: No [place] Measurements Weight: 2640 g Pounds and Ounces: 5 lb 13.1 oz Length: 18.7 Head circumference: 12.21 Chest circumference: Infant Disposition: NICU Feeding and Elimination Mother's Feeding Choice During Stay ( Core Measure PC05): Voided in Delivery Room?: No Stooled in Delivery Room?: Yes OBGYN ATTENDING DELIVERY ATTESATION I was present, scrubbed and directly supervised the section and delivery of a viable twin infants. Please see op note for further details. I was present for the entirety of the procedure. I have reviewed and agree with the above documentation. Marisa James MD 04/21/2020 8:06 AM * Nimesh Luu MD - 04/18/2020 6:37 AM CDT Internal Medicine Resident ICU Progress Note Admission Date: 04/17/2020 Hospital Day: 1 Attending: Dr. Brown Resident/U.[employer]. Revenue Officer: Drs. Crowe/ Jus Code Status: Full Code Events since last progress note: Patient seen and examined at the bedside. Continues to bleed. Sim adjusted. 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 Patient reported she got up to use the bathroom and noticed a gush of blood like Koolaid . Was lost to follow-up in [place] clinic for several months due to transportation and financial difficulties. That hospital did not have any ObGyn staff so she was transferred. During transport, nurses noticed blood clots passing and a continuous trickle of blood from the vagina, increased with contractions. Initial plan was to transfer the patient to [place], the nearest [facility], however, [place] would not accept the patient and she was brought to [facility]. On admission to [facility] the patient was actively bleeding with Plt count of 36,000. heartrate monitoring demonstrated decelerations and she was emergently taken to the OR for forsuspected placental abruption (confirmed during procedure). Post-op, the patient was found to be pale and tachycardic. EBL during C/S was 4L. Patient received 4 units of platelets, 1 unit of PRBC, 1 unit of FFP, methergine, tranexamic acid, 800 mcg cytotec, hemabate 250 mcg x 2, pitocin, and dexamethasone prior to coming to the ICU. On arrival in the ICU she was hemodynamically unstable (hypothermic, hypotensive, and tachycardic).She received a ying stick, was intubated and arterial and central lines were placed. The patient received additional 4 units of PRBC, 4 units of FFP, and 2 of cryo. Bakri balloon was placed into the fundus and inflated with 200 cc of NS. Placement was confirmed with U/S. Vaginal packing also placed.Hematology consult was placed. (04/18): IVIG (1g/kg), replete volume, IV iron, folate, vitamin b12, IVF. Replace blood products as needed. Review of Systems Unable to perform ROS: Intubated OBJECTIVE Unable to calculate weight change. Intake/Output Summary (Last 24 hours) at 04/18/2020 1318 Last data filed at 04/18/2020 1214 Gross per 24 hour Intake 7707.49 ml Output 6119 ml Net 1588.49 ml Temp (24hrs), Av.2 ??F (36.2 ??C), Min:94.5 ??F (34.7 ??C), Max:99 ??F (37.2 ??C) Vitals: 04/18/20 1230 04/18/20 1243 04/18/20 1245 04/18/20 1300 BP: Pulse: 89 90 88 85 Resp: Temp: 98.8 ??F (37.1 ??C) 98.6 ??F (37 ??C) 98.6 ??F (37 ??C) SpO2: 100% 100% 100% 100% Weight: Height: Physical Exam Constitutional: Appearance: She is normal weight. Interventions: She is intubated. HENT: Head: Normocephalic and atraumatic. Eyes: Pupils: Pupils are equal, round, and reactive to light. Cardiovascular: Rate and Rhythm: Regular rhythm. Tachycardia present. Pulses: Normal pulses. Heart sounds: Normal heart sounds. No murmur. Pulmonary: Effort: She is intubated. Comments: Air entry equal bilaterally Abdominal: Palpations: Abdomen is soft. Comments: Fundus felt below the level of the umbilicus Genitourinary: Comments: Sim balloon in place with active bleeding being evacuated through tubing Musculoskeletal: Right lower leg: Edema present. Left lower leg: Edema present. Neurological: Comments: Sedated. Rass -5 POCUS: Hyperdynamic LV with no pericardial effusion appreciated. IVC collapsed. Good lung slide bilaterally. No pleural effusion or consolidation appreciated. MAR reviewed: yes Antimicrobial day: None Labs: I have reviewed results from the last 24 hours and are remarkable for the following: Recent Labs Component Name 04/18/20 0930 04/18/20 0753 04/18/20 0750 04/18/20 0537 WBC 16.9* - 17.6* 23.1* RBC 2.20* - 2.96* 3.23* HGB 6.3* - 8.2* 8.9* HCT 18.8* - 25.1* 28.6* MCV 85.5 - 84.8 88.5 MCHC 33.5 - 32.7 31.1 PLTCOUNT 54* 51* 53* 38* 39* NEUTPCT 90.6* - 91.9* 87.8* LYMPHPCT 4.3* - 4.4* 5.2* BASOPHILPCT 0.2 - 0.2 0.4 GRANSIMMPCT 1.5* - 1.4* 4.4* NEUTABS 15.33* - 16.17* 20.24* LYMPHABS 0.73* - 0.77* 1.21 BASOABS 0.03 - 0.04 0.09* Recent Labs Component Name 04/18/20 0537 04/18/203 04/17/202056 SODIUM 138 139 138 POTASSIUM 4.8 4.0 4.3 CHLORIDE 110* 113* 112* CO2 13* 15* 16* BUN 20* 19* 21* CREATININE 1.02 0.99 1.07 GLUCOSE 306* 202* 67* CALCIUM 6.8* 7.1* 7.8* EGFR >60 >60 60* EGFRAFR >60 >60 >60 Recent Labs Component Name 04/18/20 0929 04/18/20 0753 04/18/20 0537 INR 1.2* 1.1 1.2* 1.2* PTT 27.0 27.5 33.8 33.0 Recent Labs Component Name 04/17/202056 COLORUA Yellow CLARITYUA Slt Cloudy* SPECGRAVUA 1.015 PHUA 6.0 PROTEINUA 1+* BLOODUA 3+* LEUKOCYTEUA Negative NITRITEUA Negative GLUCOSEUA Negative KETONEUA Negative BILIRUBINUA Negative UROBILINUA Negative WBCUA 6-10* RBCUA >100* BACTUA None Seen UDS positive for amphetamines Fibrinogen: 325 D-dimer: 3.75 HIV panel: Negative Syphilis Ab: Negative Recent Labs Component Name 04/18/20 1221 04/18/20 0957 04/18/20 0743 FIO2 30 30 40 PH 7.39 7.35 7.31* PCO2 34* 33* 36 BE -4.3* -7.4* -7.8* HCO3 20* 18* 18* PO2 108* 127* 147* O2SAT 98 98 99 Recent Labs Component Name 04/18/20 1225 04/18/20 0937 04/18/20 0537 LACTICACID 2.8* 4.6* 6.9* Micro: Urine culture pending Imaging: I have reviewed imaging studies from the last 24 hours and is summarized below: XR CHEST 1 VW PORTABLE FINDINGS/IMPRESSION: The tip of the endotracheal tube may terminate at the cusp of the right main bronchus, recommend retraction. An enteric tube is followed to the mid esophagus, recommend repositioning. No focal consolidation or pleural effusion is identified. The cardiac silhouette and mediastinal contours appear normal. ASSESSMENT/CLINICAL REASONING #Hypovolemic shock 2/2 hemorrhage s/p 6U PRBC, 4U FFP, 4U Platelets, and 2 cryoprecipitate #Acute hypoxic respiratory failure in the setting of shock #Metabolic acidosis likely 2/2 lactic acidosis #Acute on chronic anemia (iron deficiency) secondary to hemorrhage #Acute on chronic thrombocytopenia, likely ITP, 2/2 consumption #H/o IV drug abuse #UDS positive for amphetamines #Untreated HCV #IUP di/di twins at 38 wks s/p emergent C/S PLAN: NEURO: Sedation: Propofol Analgesia: Fentanyl RASS goal 0 to -1 PULM: Ventilation: Mech Vent CV: Pressors: Levophed Wean/titrate to MAP > 65 RENAL: Fluids: LR @ 250 mL/hr ID: ABX: None ENDO: Insulin: Low dose correctional insulin Accucheck Q6H HEM-ONC: DVT prophylaxis: SCD's Pitocin IVIG (1g/kg) today and tomorrow Solumedrol 1g x 3 days Venofer 300 mg x 3 days Replace folate, B12 Hematology on board. Recommendations appreciated. GI: Diet/TF: NPO/TF with Vital 1.2 with goal of 45 mL/hr Stress ulcer prophylaxis: Protonix 40 mg daily PT/OT/ST/ACTIVITY: When medically appropriate D/w ICU Attending, Resident, RN Nimesh Luu MD 04/18/2020 1:18 PM Associated attestation - Clem Brown MD - 04/19/2020 3:39 PM CDT [facility] Teaching attending note Date of service: 04/18/2020 I have personally seen and evaluated the patient, reviewed the lab result and radiology imagine, please refer to resident note for details. 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 who presented to [place] ED at 38w0d with leakage of bloody fluid. Patient reported she got up to use the bathroom and noticed a gush of blood like Koolaid . During transport, nurses noticed blood clots passing and a continuous trickle of blood from the vagina, increased with contractions. Initial plan was to transfer the patient to [place], the nearest [facility], however, [place] would not accept the patient and she was brought to [facility]. On admission to [facility] the patient was actively bleeding with Plt count of 36,000. heartrate monitoring demonstrated decelerations and she was emergently taken to the OR for forsuspected placental abruption (confirmed during procedure). Post-op, the patient was found to be pale and tachycardic. EBL during C/S was 4L. Patient received 4 units of platelets, 1 unit of PRBC, 1 unit of FFP, methergine, tranexamic acid, 800 mcg cytotec, hemabate 250 mcg x 2, pitocin, and dexamethasone prior to coming to the ICU. On arrival in the ICU she was hemodynamically unstable (hypothermic, hypotensive, and tachycardic).She received a ying stick, was intubated and arterial and central lines were placed. The patient received additional 4 units of PRBC, 4 units of FFP, and 2 of cryo. Bakri balloon was placed into the fundus and inflated with 200 cc of NS. Placement was confirmed with U/S. Vaginal packing also placed. Problem list: Principal Problem: Hemorrhagic shock Active Problems: Acute respiratory failure Acute blood loss anemia Twin Chronic idiopathic thrombocytopenia Polysubstance abuse Hepatitis C virus infection without hepatic coma Plan: Vent support, f/u ABG and CXR BP control, keep MAP>65, wean pressors as needed Hydration Keep Hgb>7, Serial H/H PT/PTT/Fibrinogen Steroids and IVIg and per hematology Tube feeds GI ppx Glycemic control DVT ppx- SCD's Pain management Prognosis: Fair Code Status: Full Code Family Updated: yes D/W Dr Karin Reyes personally spent 50 minutes providing critical care services, time was exclusive to this patient and dose not include time spent on teaching or in procedures. Clem Brown MD 04/18/2020 3:28 PM Critical Care Medicine * Marisa James MD - 04/18/2020 6:31 AM CDT At bedside for continued vaginal bleeding. Bimanual exam performed with multiple large clots removed. Continued thin, watery bleeding. Uterine fundus firm, with boggy lower uterine segment. Bakri placed and inflated to 290cc BSUS confirmed proper placement at fundus. Vaginal packing x1 in place. Will cont to monitor closely Afsaneh Sandoval MD 04/18/2020 6:32 AM Late entry addendum: Agree with above. Bakri placed at bedside by Dr. Sandoavl and myself. Fundus firm with boggy MARVIN. Bakri placed with 290 mL under US guidance. Vag packing placed and tied to Bakri. Marisa James MD * Marisa James MD - 04/18/2020 5:54 AM CDT At bedside for evaluation. Per nursing, BP 90/50 manually and unable to get a temperature reading. HR 140s. Esau hugger in place. Patient appears pale and very somnolent. Fundus somewhat boggy with a slow continuous trickle ofblood. Patient pulls my hand away with fundal massage. Medications given: cytotec 800mcg hembate x2 Methergine Pitocin TXA Products given: 6u platelets 1u of pRBCs (still infusing) 1u of FFP (still infusing) Repeat BP reading unable to be calculated. Total EBL 4000cc Hgb 5.4, Plt 42, fibrinogen 238 Dr. James also at bedside. Rapid response and Meter Attendant Dr. Mallory was called and patient was moved emergently to the ICU. Appreciate ICU care. Patient's family updated and all questions answered. Afsaneh Sandoval MD 04/18/2020 6:00 AM Late entry: Agree with above. I saw patients bloodwork results while Dr. Sandoval was in room and went to bedside immediately. We initially decided to transfuse further PRBCs and FFP. Called anesthesia to bedside as we desired to attempt Bakri placement. I was then informed by staff that they had been unable to get BP for 20 min and MBL was up to 4 L. Patient pale and responsive to painful stimuli only. At that point I activated the massive transfusion protocol and we emergently transferred her to the ICU. Bakri placement deferred as unable to give pain meds to allow patient to tolerate invasive exam. Once down in ICU, patient history was reviewed by myself with intesivist Dr. Mallory, blood products were transfused quickly and patient was intubated. Pressors were started. Central and arterial lines were placed and BP readings obtained at that point. Her bleeding was improved and fundus firm and atthe umbilicus so Bakri placement was deferred, although we ensured that it was at the bedside. ICU team planned to emergently consult hematology. Marisa James MD * Afsaneh Sandoval MD - 04/18/2020 3:41 AM CDT At bedside due to FHR deceleration of baby A to the 80s for 9mins. Patient given terbutaline and positioned laterally and on hands and knees. Pitocin was stopped and fluids were bolusing. Patient wasbrought emergently back to the OR for section. Please see operative note for further details. Dr. James aware Afsaneh Sandoval MD 04/18/2020 3:43 AM * Afsaneh Sandoval MD - 04/18/2020 1:46 AM CDT Patient painfully porter. Aware she cannot get epidural. Cervix 3/75/-3. Bleeding stable. Currently on pit of 6, cont to increase. Given 100mcg of fentanyl. Cont fentanyl for pain management for now, will check cervix prior to administration. EFM: A 135bpm, mod varibaility, reactive, area of broken tracing, cannot rule out decel B 140bpm, mod variability, reactive, no decels [place]: q2-3mins Labs reviewed. Plt 30 > 2u platelets > 29. Plan to give an additional 2u of platelets. 2u still on hold. Spoke with Blood Bank who is planning to order more platelets from [facility] (takes ~1hr). Fibrinogen stable at 345, from 235. Hgb 10.0, from 10.1 S/p dexamethasone 40mg. Will order IVIG 1g/kg x1. Cr also elevated at 1.07, from 0.60. New onset mild range BPs. Could be related to contraction pain. Need Pr:cr urine, however would need to be straight cath and patient declines. Difficult clinical picture: chronic low platelets, chronic elevated LFTs 2/2 hep c, and new onset Cr elevation. Cr rise could be from meth use or dehydration. Plan to repeat CMP with next set of labsin 3hrs. Getting IVF now. Cannot rule out pre-eclampsia with severe features at this time. However, will hold off on startingmagnesium unless patient develops severe range BPs. Patient is at extremely high risk of hemorrhage, due to Plt 29, multiparity, twin gestation. Do notwant magnesium's tocolytic effects to potentially contribute to worsening bleeding. Will continue to monitor closely Afsaneh Sandoval MD 04/18/2020 2:05 AM * Danilo Almanzar - 04/18/2020 12:36 AM CDT R1 OB Progress Note 04/18/2020, 12:38 AM Subjective: Went to see patient for cervical check. Reports poor pain control. Objective: Vitals: 04/17/20 2253 04/17/20 2308 04/17/20 2323 04/18/20 0003 BP: 141/86 149/89 144/92 108/78 Pulse: Resp: Temp: SpO2: Weight: Height: Intake/Output Summary (Last 24 hours) at 04/18/2020 0038 Last data filed at 04/18/2020 0015 Gross per 24 hour Intake 4.79 ml Output 145 ml Net -140.21 ml heart tones: Moderate variability with baseline rate of 140bpm without decels Tocometer: every 2-3 minutes Cervical Exam Dilation (cm): 3 Effacement: 75 Station: -3 Assessment: 29 year old @ 38w1d Di/di twins 1. Planned , c/s if maternal/ status worsens 2. Cervical exam as above 3. On pitocin 4mu/min 4. Reassuring FHT 5. 100mcg Fentanyl given for pain; epidural contraindicated Thrombocytopenia 1. 30k at 2041 2. Dexamethasone 40mg at 2248 3. 2u platelets type and crossed Microcytic Anemia 1. Continued dark red trickle from cervix 2. Hgb at 10.1 at 2041 3. 2u type and crossed Substance abuse 1. UDS positive for amphetamines 2. Continue serial COWS Danilo Almanzar 04/18/2020 12:38 AM Associated attestation - Afsaneh Sandoval MD - 04/18/2020 1:27 AM CDT This note is for the educational benefit of the medical student. Please see resident note for treatment details. Afsaneh Sandoval MD 04/18/2020 1:27 AM * Marisa James MD - 04/18/2020 12:10 AM CDT MFM Fellow/In House Call Physician note: I saw and evaluated this patient on admission. Multip with di/di twins and significant thrombocytopenia (ITP vs Hep C) p/w bleeding. Slow dark red trickle from cervix. US exam performed by me and showed AGA concordant cephalic/cephalic twins with anterior placenta and no previa (confirmedon TVUS). Cervix 2-3/50. status x 2 reassuring. Maternal status reassuring. Suspect a placental abruption. Plan to transfuse 2 units of platelets with 2 more crossed and 2 units of PRBCs on hold as well. Coags pending. Will plan to start IOL when platelets hanging. IV dexamethasone as well for platelets. Serial labs (q4h) with add'l product replacement PRN. Pt understands that she may need a c/s if her status or status worsens, and this would be under GETA. She knows she is at high risk of hemorrhage which may require medical or surgical management, and possibly hysterectomy. She and her support people (partner and mother) are comfortable with the plan and were given the opportunity to ask any questions. D/w Dr. Karin James MD documented in this encounter H&P Notes * Maikel Ring MD - 04/18/2020 5:27 AM CDT Internal Medicine Resident ICU History and Physical Admission Date: 04/17/2020 Attending: Dr. Mendez Resident: Dr. Ring Code Status: Full Code Chief complaint: shock History of Present Illness: History gotten from review of chart Ms. 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 Alex), vitamin B12 deficiency, methamphetamine abuse who [facility] here, she had emergency CS with delivery of twins due to deceleration of one of the baby's HR and later confirmed placental abruption. Post op, she was found to have low blood pressure-90/50, pale and tachycardic. Estimated EBL following CS was 4L. Patient received 4 units of platelets, 1 unit of PRBC, 1 unit of FFP, methergine, tranexamic acid, 800 mcg cytotec,hemabate 250 mcg x 2, pitocin, and dexamethasone prior to coming to the ICU. Rapid response was called on account of low blood pressure and hypothermia. She was transferred to the ICU for further management. ?? On admission in the ICU, she was hemodynamically unstable (hypothermic, hypotensive, and tachycardic). She received a ying stick, emergently intubated for airway protection with placement of arterial and central lines. The patient received additional 4 units of PRBC, 4 units of FFP, and 2 of cryo. Bakri balloon was placed into the fundus and inflated with 200 cc of NS. Placement was confirmed withU/S. Vaginal packing also placed. Hematology was consulted. Review of Systems Unable to perform ROS: Intubated History: Past Medical History: Diagnosis Date ??? History of anemia ??? History of headache ??? Liver disease Hep C Pertinent Summary of prior admission(s)/Care everywhere/ED visit/Clinic visit: in HPI No past surgical history on file. Family History Problem Relation Name Age of Onset ??? None Known Paternal Grandfather ??? None Known Paternal Grandmother ??? None Known Maternal Grandmother ??? None Known Maternal Grandfather ??? None Known Father ??? None Known Mother ??? None Known Brother ??? None Known Sister ??? None Known Other Social History Occupational History ??? Not on file Tobacco Use ??? Smoking status: Current Some Day Smoker Packs/day: 0.50 Years: 15.00 Pack years: 7.50 Types: Cigarettes Start date: 07/2004 ??? Smokeless tobacco: Never Used Substance and Sexual Activity ??? Alcohol use: Not Currently ??? Drug use: Yes Types: Methamphetamines Comment: weekly ??? Sexual activity: Not on file Allergies to Medications and Reactions Allergies Allergen Reactions ??? Bee Venom Anaphylaxis ??? Shellfish Allergy Anaphylaxis Home Medications: Home medications reconciled no No current facility-administered medications on file prior to encounter. Current Outpatient Medications on File Prior to Encounter Medication Sig Dispense Refill ??? calcium carbonate (TUMS) 500 MG chew tablet Take 1 tablet by mouth every 2 hours as needed for Heartburn 60 tablet 3 ??? cyanocobalamin 1000 MCG Take 1 tablet by mouth once daily (Patient not taking: Reported on 01/23/2020) 30 tablet 2 ??? ferrous sulfate 325 (65 FE) MG tablet Take 1 tablet by mouth 2 times daily with morning and evening meal 60 tablet 5 ??? ferrous sulfate 325 (65 FE) MG tablet Take 1 tablet by mouth once daily 100 tablet 0 ??? folic acid (FOLVITE) 1 MG tablet Take 1 tablet by mouth once daily 30 tablet 3 ??? folic acid (FOLVITE) 1 MG tablet Take 1 tablet by mouth once daily 30 tablet 2 ??? Vit-Fe Fumarate-FA ( PLUS) 27-1 MG tablet Take 1 tablet by mouth once daily 30tablet 5 EXAMINATION Vitals: 04/18/20 0515 04/18/20 0530 04/18/20 0545 04/18/20 0604 BP: (!) 150/101 Pulse: (!) 110 (!) 122 (!) 116 (!) 121 Resp: 24 18 15 29 Temp: (!) 94.5 ??F (34.7 ??C) SpO2: 100% 100% 100% 100% Weight: Height: Physical Exam Vitals signs and nursing note reviewed. Constitutional: General: She is in acute distress. Appearance: She is ill-appearing. HENT: Head: Normocephalic and atraumatic. Cardiovascular: Rate and Rhythm: Tachycardia present. Heart sounds: No murmur. Pulmonary: Comments: intubated Abdominal: Palpations: Abdomen is soft. Comments: Uterus contracted, 24 weeks size Musculoskeletal: Right lower leg: Edema present. Left lower leg: Edema present. Neurological: Mental Status: She is alert. POCUS: hyperdynamic, LV>RV, no pericardial effusion.IVC - 2 cm. Sliding lungs, A lines and B lines seen. No pleural effusion or consolidation Labs: Labs are remarkable for the following: Recent Labs Component Name 04/18/20 0537 04/18/20 0413 04/18/20 0053 WBC 23.1* 19.5* 16.6* RBC 3.23* 2.04* 3.71* HGB 8.9* 5.4* 10.0* HCT 28.6* 17.6* 30.7* MCV 88.5 86.3 82.7 MCHC 31.1 30.7* 32.6 PLTCOUNT 38* 39* 42* 29* NEUTPCT 87.8* 88.8* 90.5* LYMPHPCT 5.2* 6.4* 4.0* BASOPHILPCT 0.4 0.3 0.3 GRANSIMMPCT 4.4* 2.6* 1.3* NEUTABS 20.24* 17.28* 14.97* LYMPHABS 1.21 1.25 0.67* BASOABS 0.09* 0.05 0.05 Recent Labs Component Name 04/18/20 0537 04/18/20 0413 04/17/202056 SODIUM 138 139 138 POTASSIUM 4.8 4.0 4.3 CHLORIDE 110* 113* 112* CO2 13* 15* 16* BUN 20* 19* 21* CREATININE 1.02 0.99 1.07 GLUCOSE 306* 202* 67* CALCIUM 6.8* 7.1* 7.8* EGFR >60 >60 60* EGFRAFR >60 >60 >60 Micro: Imaging: Imaging is summarized as below: ASSESSMENT/CLINICAL REASONING Hemorrhagic shock Likely 2/2 post hemorrhage and hx of thrombocytopenia S/p multiple units of pRBC, FFP, and cryoprecipitate DIC less likely with normal fibrinogen. Acute hypoxic respiratory failure In setting of shock Lactic acidosis 2/2 tissue hypoperfusion Lactate of 6.9 S/p emergent CS- POD0 Hypomagnesemia NAGMA Chronic problems Hepatitis C Chronic thrombocytopenia Chronic ITP PLAN: NEURO: Sedation: propofol Analgesia: fentanyl PULM: Ventilation: mech vent Check ABG Stat CXR CV: Pressors: NA Keep MAP >65 RENAL: Fluids: NA Monitor renal function closely ID: ABX: NA Check blood cultures ENDO: Insulin: NA Hypoglycemia protocol HEM-ONC: DVT prophylaxis:SCDs Consult to hematology - IVIG 74g stat 1g solumedrol stat Check STAT cbc, coag panel GI: Diet/TF: NPO, TF in am Stress ulcer prophylaxis: Protonix PT/OT/ST/ACTIVITY: ordered D/w ICU Attending, Dr. Andrea Ring MD 04/18/2020 7:13 AM The patient is admitted with a diagnosis or diagnoses of Hemorrhagic shock, AHRF and current medical needs include emergent intubation, multiple blood transfusion, hematology consult. The patient hasthe following complex medical factors: chronic thrombocytopenia, Hep C untreated. Associated attestation - Angela Mallory MD - 04/18/2020 8:02 PM CDT [facility] Teaching attending note Date of service: 04/18/20 Problem List: Acute hypoxic respiratory failure Hemorrhagic shock Anemia of acute blood loss Possible ITP Physical Exam: Patient Vitals for the past 6 hrs: Temp Pulse Resp 04/18/20 1900 98.6 ??F (37 ??C) 85 04/18/20 1845 98.4 ??F (36.9 ??C) 86 04/18/20 1830 98.4 ??F (36.9 ??C) 84 04/18/20 1815 98.6 ??F (37 ??C) 85 04/18/20 1800 98.6 ??F (37 ??C) 82 04/18/20 1745 98.4 ??F (36.9 ??C) 86 04/18/20 1730 98.4 ??F (36.9 ??C) 89 04/18/20 1715 98.4 ??F (36.9 ??C) 85 04/18/20 1703 -- 93 -- 04/18/20 1700 98.4 ??F (36.9 ??C) 83 04/18/20 1645 98.4 ??F (36.9 ??C) 84 04/18/20 1630 98.4 ??F (36.9 ??C) 82 04/18/20 1615 98.4 ??F (36.9 ??C) 90 04/18/20 1600 98.2 ??F (36.8 ??C) 93 04/18/20 1545 98.4 ??F (36.9 ??C) 91 04/18/20 1530 98.6 ??F (37 ??C) 87 04/18/20 1515 98.4 ??F (36.9 ??C) 87 04/18/20 1500 98.6 ??F (37 ??C) 83 04/18/20 1445 98.6 ??F (37 ??C) 82 04/18/20 1430 98.6 ??F (37 ??C) 88 04/18/20 1415 98.8 ??F (37.1 ??C) 85 04/18/20 1400 98.8 ??F (37.1 ??C) 82 20 As noted prior to intubation Gen: A&Ox0, unresponsive but does fight the mask. Not following commands Neuro: Spontaneous movement of all 4 ext, PERRL HEENT: Pupils as above, OP WNL Heart:: Regular, tachy, no M/R/G Lungs: Coarse BL Abdomen: Soft, tender, fundus below umbilicus, absent BS Skin: Cool and dry Extremities: No edema Assessment and Plan: Hemorrhagic shock with anemia of acute blood loss. Actively resuscitating. Follow serial labs. Check CXR. I performed a history and physical examination of the patient and discussed management with the resident, Dr. Ring. I reviewed the resident???s note dated *04/18 and agree with the documented findings and plan of care. The patient is critically ill with hemorrhagic shock. This life-threatening illness requires high complexity decision making for assessment and support, direct icic-ds-hpdy evaluation, personal review of the medical record and laboratory and diagnostic imaging results, active titration of high-alert medications, and application of advanced monitoring techniques. As a result, I personally spent 59minutes providing critical care services exclusively to this patient. This was in exclusion of the time spent performing procedures (separately reported) or teaching. * Afsaneh Sandoval MD - 04/17/2020 9:22 PM CDT R4 Obstetric H&P Note 04/17/2020, 9:23 PM CC: HRT for vaginal bleeding HPI: 29 year old at 38w0d gestation Datin week ultrasound Estimated Date of Delivery: 05/01/20 care: is with [place] (only 2 visits) Patient's is complicated by: Patient Active Problem List Diagnosis Date Noted ??? screening for malformation using ultrasonics Priority: [...] Prioritized ??? Anemia 12/07/2019 Priority: Not Prioritized Patient presents with complaints of vaginal bleeding. Patient reports she got up to use the bathroom and noticed a big gush of bright red blood that was like Koolaid. She went to the [facility] hospitaland then [facility] ([place] Patient has continued to have some vaginal bleeding, but it is much less. Feels some mild contractions. She has not been seen in [place] clinic in several months due to transportation and financial difficulties as well as COVID. positive Ctx. negative LOF. positive VB. positive FM X2. Review of Symptoms: Positive for: see HPI Denies: fevers, chills, chest pain, shortness of breath, nausea, vomiting, diarrhea, constipation, dysuria, urinary frequency, changes in vaginal discharge Obstetrical History: OB History Para Term AB Living 3 2 2 0 0 2 SAB TAB Ectopic Multiple Live Births 2 # Outcome Date GA Lbr Jhonny/2nd Weight Sex Delivery Anes PTL Lv 3 Current 2 Term 2007 3345 g (7 lb 6 oz) M Vag-Spont MARTHA 1 Term 2004 3062 g (6 lb 12 oz) F Vag-Spont MARTHA Gynecologic History: History of abnormal pap smear: yes History of procedure on cervix: unsure STI History: Hepatitis C. Denies gonorrhea, chlamydia, trichomonas, herpes, HIV, syphilis Medical History: Past Medical History: Diagnosis Date ??? History of anemia ??? History of headache ??? Liver disease Hep C She denies history of hypertension, diabetes, asthma or bleeding disorders. Psych History: Depression: No Anxiety: No Bipolar disorder: No Schizophrenia: No Surgeries: No past surgical history on file. Current Medications: Prior to Admission medications Medication Sig Start Date End Date Taking? Authorizing Provider calcium carbonate (TUMS) 500 MG chew tablet Take 1 tablet by mouth every 2 hours as needed for Heartburn 01/23/20 Marisa James MD cyanocobalamin 1000 MCG Take 1 tablet by mouth once daily Patient not taking: Reported on 01/23/2020 12/10/19 Marbella Koehler MD ferrous sulfate 325 (65 FE) MG tablet Take 1 tablet by mouth 2 times daily with morning and eveningmeal 01/23/20 Marisa James MD ferrous sulfate 325 (65 FE) MG tablet Take 1 tablet by mouth once daily 12/09/19 Marbella Koehler MD folic acid (FOLVITE) 1 MG tablet Take 1 tablet by mouth once daily 01/23/20 Marisa James MD folic acid (FOLVITE) 1 MG tablet Take 1 tablet by mouth once daily 12/09/19 Marbella Koehler MD Vit-Fe Fumarate-FA ( PLUS) 27-1 MG tablet Take 1 tablet by mouth once daily 01/23/20Marisa James MD Allergies: Allergies Allergen Reactions ??? Bee Venom Anaphylaxis ??? Shellfish Allergy Anaphylaxis Social History: Social History Smoking status: Current Some Day Smoker Packs/day: 0.50 Years: 15.00 Types: Cigarettes Start date: 07/2004 Smokeless tobacco: Never Used Alcohol use: Not Current* Drug use: Yes Types: Methamphetamines Comment: weekly Sexual activity: Not on file Family History: Family History Problem Relation Name Age of Onset ??? None Known Paternal Grandfather ??? None Known Paternal Grandmother ??? None Known Maternal Grandmother ??? None Known Maternal Grandfather ??? None Known Father ??? None Known Mother ??? None Known Brother ??? None Known Sister ??? None Known Other No history of infants born with defects No history of family members with bleeding disorders or history of blood clots. No history of breast, ovarian, or uterine cancer Objective: Patient Vitals for the past 24 hrs: BP 04/17/202008 120/85 Assessment/ Non-Stress Test Baseline: A 135bpm, mod variability, reactives B 135bpm, mod variability, reactive [place] q2-4min No decels seen, but areas of broken tracing present Physical Exam General: no acute distress, alert and oriented x3 HEENT: extra-occular movements intact, moist mucous membranes Heart: regular rate Lungs: non-labored breathing on room air Abdomen: soft, non-tender, non-distended, no appreciable masses or organomegaly Extremities: non-tender bilaterally, no edema bilaterally Neuro: cranial nerves grossly intact, strength and sensation intact and symmetric bilaterally Psych: appropriate affect Cervical Exam Dilation (cm): 2 Effacement: 75 Station: -2 Pelvimetry: Diagonal conjugate reached: No Ischial Spines prominent: No Suprapubic arch, narrow: No Pelvic sidewalls divergent: No Gynecoid pelvis: Yes Bedside ultrasound: Presentation: vertex/vertex Placenta: anterior, vaginal probe used with no evidence of placenta previa EFW A 2682g (maternal left) EFW B 2932g (maternal right) Discordance 9% Current Lab Review: Hospital Encounter on 04/17/20 CBC W AUTO DIFFERENTIAL Result Value Ref Range WBC 7.9 4.4 - 10.7 x10E9/L WBC Corrected RBC 3.87 3.80 - 5.20 x10E12/L Hemoglobin 10.1 (L) 12.0 - 15.6 gm/dL Hematocrit 31.8 (L) 35.9 - 45.5 % MCV 82.2 80.7 - 98.3 fl MCH 26.1 (L) 26.7 - 34.0 pg MCHC 31.8 30.8 - 35.9 gm/dL Platelet Count 30 (LL) 153 - 416 x10E9/L RDW-CV 19.3 (H) 12.1 - 14.9 % Neutrophils % 70.2 44.0 - 73.0 % Lymphocytes % 19.9 (L) 20.0 - 43.0 % Monocytes % 6.7 5.0 - 13.0 % Eosinophils % 1.3 0.0 - 6.0 % Basophils % 0.5 0.0 - 2.0 % Immature Granulocytes 1.4 (H) 0 - 1 % Neutrophil Absolute 5.54 2.01 - 7.14 x10E9/L Lymphocytes Absolute 1.57 1.07 - 3.94 x10E9/L Monocytes Absolute 0.53 0.26 - 1.07 x10E9/L Eosinophils Absolute 0.10 0 - 0.47 x10E9/L Basophils Absolute 0.04 0 - 0.08 x10E9/L Immature Granulocytes Absolute 0.11 (H) 0.00 - 0.06 x10E9/L nRBC Auto 0 /100 WBC URINALYSIS REFLEX TO MICROSCOPIC NO CULTURE Result Value Ref Range Color UA Yellow Straw, Yellow Clarity UA Slt Cloudy (Abnormal) Clear Glucose UA Negative Negative Bilirubin UA Negative Negative Ketone UA Negative Negative Specific Cyrus UA 1.015 1.005 - 1.030 Blood UA 3+ (Abnormal) Negative pH UA 6.0 5.0 - 8.0 pH Protein UA 1+ (Abnormal) Negative Urobilinogen UA Negative Negative mg/dL Nitrite UA Negative Negative Leukocyte UA Negative Negative Urine Microscopy Urine microscopy to follow [facility] Result Value Ref Range Platelet Estimation Markedly decreased (Abnormal) Normal, Adequate platelets Anisocytosis 1+ (Abnormal) None TYPE + SCREEN PANEL Result Value Ref Range ABO Rh A POS Antibody Screen NEG PREPARE (CROSSMATCH) RBC UNIT(S), 2 Units Result Value Ref Range Unit Description AS1 LR PRBC Unit ABO A Unit Rh POS Product Number R02 Unit Donor # [id number] Unit Status selected Product Code [id number] Blood Type Barcode 6199 Expiration Date [id number] Unit Description AS1 LR PRBC Unit ABO A Unit Rh POS Product Number R43 Unit Donor # [id number] Unit Status selected Product Code [id number] Blood Type Barcode 6199 Expiration Date [id number] PREPARE PLATELET PHERESIS UNIT(S), 2 Units Result Value Ref Range Unit Description LR PLT Pheresis Unit ABO A Unit Rh POS Product Number P02 Unit Donor # [id number] Unit Status selected Product Code [id number] Blood Type Barcode 6199 Expiration Date Unit Description LR PLT Pher IRR Unit ABO B Unit Rh POS Product Number P10 Unit Donor # [id number] Unit Status released Product Code [id number] Blood Type Barcode 73 Expiration Date Unit Description LR PLT Pheresis Unit ABO A Unit Rh POS Product Number P02 Unit Donor # [id number] Unit Status selected Product Code [id number] Blood Type Barcode 6199 Expiration Date [id number] BLOOD TYPE VERIFICATION Result Value Ref Range ABO Rh A POS labsBlood type: A+ Rubella: immune Hep B surface antigen:non-reactive RPR: non-reactive HIV:Negative GCT: not done, accuchecks ordered GBS: not done Assessment/Plan: 29 year old @ 38w0d 1. Vaginal bleeding in the setting of severe thrombocytopenia 1. Was admitted 12/07 for transfusion of 2u pRBCs and heme/onc consult 2. Suspect chronic ITP secondary to chronic hepatitis C 3. Negative hemolytic workup, hemoglobin electrophoresis, and MARQUITA 4. Has been seen by [facility] in [place], Dr. Alex 5. Plt 30 on admission 6. Slow trickle of dark red blood from the vagina, no clots seen 7. TVUS with no evidence of placenta previa 8. Cervix 2-3/75/-3 9. Transfuse 2 u platelets, will crossmatch 2 units of platelets 10. Dexamethasone 40mg IV daily 11. Fibrinogen 325, PT/PTT/INR wnl 12. Cont to trend labs q4hrs 13. Discussed with patient concern for placental abruption, but at this time maternal and status is reassuring. Discussed high risk of hemorrhage and plan to monitor patient closely. Patient aware she is unable to get an epidural and if she needs a c/s it would be under general anesthesia. 2. DCDA twins 1. BSUS today: EFW A 2682g (maternal left), EFW B 2932g (maternal right), discordance 9% 2. Discussed plan for at this time. Consented for twin vaginal delivery, internal podalic version, operative vaginal delivery, section, and hysterectomy. Consent signed and in chart 3. Discussed recommendation for c/s if worsening or maternal status 3. Severe iron deficiency Anemia 1. Hgb 10.1 2. Has been getting IV venofer, B12 injections, and folic acid supplements 3. Crossmatch x2 4. Hepatitis C 1. 2/2 IVDU 2. Quant 12/08/19 445995 3. ALT/AST 4. Has followed with hepatology, Dr. Jain in the past 5. Limited PNC 1. 2 PNV this , last visit 01/22 6. PSA 1. Used heroin, vicodin,??and meth in the??past 2. Meth use 1 week ago 3. UDS+ for ampetamines 4. Tobacco use 7. Cervical cancer? 1. Patient reports history of pre-cancerous changes and followup testing in 2017 with cervical cancer. Did not follow up since then. Unable to see records in [facility]. 2. No abnormal cervical lesions palpated on exam 3. Will request records and follow up Plan: IOL for DCDA twins at 38wks. Plan to start with pitocin. Will monitor bleeding and labs closely. If concern for worsening maternal status would proceed with delivery under GETA. Discussed with Dr. Karin Sandoval MD 04/17/2020 9:23 PM Associated attestation - Phuong Frazier MD - 04/18/2020 2:21 PM CDT MFM Attending History and Physical Addendum Date: 04/18/2020 I have seen and examined the patient with the resident/fellow and agree with their documentation unless noted below. Subjective: Hillary Smalls is a 29 year old who is PPD #0. The patient's is complicated by thrombocytopenia, insufficient PNC, farrukh twin, hep C, PSA. The patient presents to the hospital as a transfer of care due to leaking of blood fluid. The patient had an emergent CD due to NRFHT and abruption. Following her CD she developed a PP hemorrhage andbecome unresponsive. She was moved to the ICU for further management. At the time I saw the patient she was intubated and sedated. OB History Para Term AB Living 3 3 3 0 0 4 SAB TAB Ectopic Multiple Live Births 1 4 # Outcome Date GA Lbr Jhonny/2nd Weight Sex Delivery Anes PTL Lv 3A Term 04/18/20 38w1d 2640 g (5 lb 13.1 oz) F Gen N MARTHA Complications: Intolerance 3B Term 04/18/20 38w1d 2640 g (5 lb 13.1 oz) M Gen N MARTHA Complications: Intolerance 2 Term 2007 3345 g (7 lb 6 oz) M Vag-Spont MARTHA 1 Term 2004 3062 g (6 lb 12 oz) F Vag-Spont MARTHA Past Medical History: Diagnosis Date History of anemia History of headache Liver disease Hep C calcium carbonate (TUMS) 500 MG chew tablet cyanocobalamin 1000 MCG ferrous sulfate 325 (65 FE) MG tablet ferrous sulfate 325 (65 FE) MG tablet folic acid (FOLVITE) 1 MG tablet folic acid (FOLVITE) 1 MG tablet Vit-Fe Fumarate-FA ( PLUS) 27-1 MG tablet Allergies Allergen Reactions Bee Venom Anaphylaxis Shellfish Allergy Anaphylaxis No past surgical history on file. Family History Problem Relation Name Age of Onset None Known Paternal Grandfather None Known Paternal Grandmother None Known Maternal Grandmother None Known Maternal Grandfather None Known Father None Known Mother None Known Brother None Known Sister None Known Other Social History Tobacco Use Smoking status: Current Some Day Smoker Packs/day: 0.50 Years: 15.00 Pack years: 7.50 Types: Cigarettes Start date: 07/2004 Smokeless tobacco: Never Used Substance Use Topics Alcohol use: Not Currently Drug use: Yes Types: Methamphetamines Comment: weekly Physical Exam: Temp (24hrs) Max:99 ??F (37.2 ??C) BP 97/75 Pulse 83 Temp 98.6 ??F (37 ??C) Resp 20 Ht 5' 2 (1.575 m) Wt 162 lb (73.5 kg) SpO2 100% BMI 29.63 kg/m2 General: comfortable, alert, cooperative HEENT: normocephalic, atraumatic. Pulmonary: intubated Abd: soft, fundus firm Ext: no edema, nontender. Skin:warm, normal turgor, no rashes nor lesions Neuro: cranial nerves 2-12 grossly intact, intact sensory and motor. BSUS: no apparent blood clots in uterus, bakri in place Vag packing removed (2 packs tied together), ~100cc clot removed from vagina. No active VB or loss of blood from the bakri. Labs Recent Labs Component Name 04/18/20 0930 04/18/20 0753 04/18/20 0750 04/18/20 0537 WBC 16.9* - 17.6* 23.1* HGB 6.3* - 8.2* 8.9* HCT 18.8* - 25.1* 28.6* PLTCOUNT 54* 51* 53* 38* 39* Recent Labs Component Name 04/18/20 0537 SODIUM 138 POTASSIUM 4.8 CHLORIDE 110* CO2 13* BUN 20* CREATININE 1.02 GLUCOSE 306* CALCIUM 6.8* ALBUMIN 2.6* ALKPHOS 192* ALT 22 AST 34 TBIL 0.5 TPROT 4.7* EGFR >60 Assessment/Plan: Hillary Smalls is a 29 year old PPD #0 from CD Patient Active Problem List: Anemia Hepatitis C virus infection without hepatic coma Thrombocytopenia affecting Transaminitis Twin Polysubstance abuse screening for malformation using ultrasonics Screening, , for risk of pre-term labor Chronic idiopathic thrombocytopenia Hemorrhagic shock Cont to monitor output from Bakri closely and replace products as indicated. Being managed by ICU, will follow closely and manage obstetric care given recent delivery/surgery. Plan to resume care once stable for d/c from ICU. Phuong Frazier MD Maternal Medicine 04/18/2020 2:07 PM documented in this encounter Procedure Notes * Angela Mallory MD - 04/18/2020 6:10 AM CDT Arterial Line Placement Procedure Note Procedure: Insertion of arterial line Indications: shock Anesthesia IV None Local: None Site: Right femoral Consent Risks, benefits and alternatives were not discussed as was unable to obtain due to emergency condition and consent for procedure was obtained. Prep Under sterile conditions the site was prepped with chlorhexidine and full barrier precautions were employed. Technique The artery was identified by ultrasound. The artery was accessed using a modified Seldinger technique. The catheter was advanced and sutured in place. Waveforms were good. A dressing was applied. Images saved to patient record: No Comments None Complications None * Angela Mallory MD - 04/18/2020 6:09 AM CDT Central Line Placement Indications: shock Consent: Risks, benefits and alternatives were not discussed; unable to obtain due to emergency condition and consent for procedure was obtained. Medication: N/A Procedure note: Right Femoral approach was selected and the right groin area was prepped, cleansed and draped in a sterile fashion. Patient was then placed into Trendelenburg position and lidocaine was used for local anesthesia. Vascular probe with ultrasound was used for guidance. Introducer needle was then used to gain access to the central venous circulation. Using Seldinger technique the Triple lumen catheter was placed. Catheter port(s) were aspirated and flushed. Central line was sutured in place and sterile dressing applied. Sliding Lungs was checked prior and post procedure: No Chest-X-Ray ordered: No Images saved to patient record: No Patient Status: Patient tolerated the procedure tolerated procedure well. There were no complications. * Angela Mallory MD - 04/18/2020 6:00 AM CDT Endotracheal Intubation Procedure Note Indications: respiratory failure Anesthesia IV: etomidate 40 mg Lidocaine: no Paralytic: rocuronium 100 mg Equipment: Supa 4 laryngoscope blade, 7.5mm cuffed endotracheal tube, stylet Consent Consent was not obtained due to the patient's condition and urgency of the situation. Technique Under direct visualization the endotracheal tube was successfully placed through the vocal cords onthe first attempt and secured at 23 cm. ETT location confirmed by auscultation and CO2 detector. Comments CXR ordered documented in this encounter Consult Notes * Bee Kauffman MD - 04/22/2020 4:09 PM CDTAssociated Order(s): IP CONSULT TO INFECTIOUS DISEASES Infectious Diseases Consult Note Patient's Primary Care Physician: Alejandro Blevins MD Reason for Consultation: Steroid use Referring Physcian: Phuong Frazier MD Name: Hillary Smalls Age: [age] year old 5 Chief Complaint/History of Present Illness HPI: Hillary Smalls is a 29 year old White/Caucasianfemale with drug use, hepatitis-C not treated,admitted with vaginal bleeding due to placental abruption. She has underlying thrombocytopenia and had been on various treatments in the past per patient's mother. She never had splenectomy.. The patient had on April 20 and delivered to tween babies. The patient was transfusedplatelets blood FFP and cryoprecipitate The patient requires steroids for ITP and infectious diseases consultation was requested for further recommendations.. She denies any modifying factors or associated signs or symptoms Objective: Review of Systems General: no fatigue/fever/chills Skin: no rashes/lesions Eyes: no vision problems/no conjunctival lesions HENT: no oral lesion/no hearing problems Respiratory: no cough/sob Cardiovascular: no cp/palpitations Gastrointestinal: no nausea/diarrhea Genitourinary: Vaginal bleed Musculoskeletal: no joint pain/no muscle pain Neurological: no hoffman/seizures Psych: no depression/anxiety Past Medical History: Diagnosis Date ??? History of anemia ??? History of headache ??? Liver disease Hep C Past Surgical History: Procedure Laterality Date ??? Section 04/18/2020 SECTION (EMERGENCY) Social History Tobacco Use ??? Smoking status: Current Some Day Smoker Packs/day: 0.50 Years: 15.00 Pack years: 7.50 Types: Cigarettes Start date: 07/2004 ??? Smokeless tobacco: Never Used Substance Use Topics ??? Alcohol use: Not Currently ??? Drug use: Yes Types: Methamphetamines Comment: weekly Family History Problem Relation Name Age of Onset ??? None Known Paternal Grandfather ??? None Known Paternal Grandmother ??? None Known Maternal Grandmother ??? None Known Maternal Grandfather ??? None Known Father ??? None Known Mother ??? None Known Brother ??? None Known Sister ??? None Known Other Allergies Allergen Reactions ??? Bee Venom Anaphylaxis ??? Shellfish Allergy Anaphylaxis Exam Vitals: 04/22/20 0415 04/22/20 1015 04/22/20 1250 04/22/20 1336 BP: 128/72 122/63 123/79 Pulse: 69 Resp: 16 20 18 Temp: 97.5 ??F (36.4 ??C) 97.7 ??F (36.5 ??C) 98.4 ??F (36.9 ??C) SpO2: 99% 100% 98% Weight: Height: Temp (30hrs) Max:98.4 ??F (36.9 ??C) General appearance: Alert, pale HEENT: ncat, vision intact/perrl, mmm/no lesion, neck supple/nt Lungs: Resonant, decreased air entry Heart: regular rate and rhythm, S1, S2 normal, no murmur, click, rub or gallop, Abdomen: Soft, not tender incision looks clean Dermabond there is no redness or drainage Extremities: extremities normal, atraumatic, no cyanosis or edema Skin: no rash/lesion Lines: MEDICATIONS FOR CURRENT ENCOUNTER: ?? SCHEDULED MEDICATIONS: ?? 0.9% NaCl injection 3 mL, Intracatheter, q8h ?? 0.9% NaCl injection 3 mL, Intracatheter, q8h ?? acetaminophen (TYLENOL) tablet 1,000 mg, Oral, q6h ?? cyanocobalamin (VITAMIN B-12) injection 1,000 mcg, Intramuscular, QDAY ?? dexamethasone (DECADRON) tablet 40 mg, Oral, QDAY ?? docusate sodium (COLACE) capsule 100 mg, Oral, BID ?? famotidine (PEPCID) tablet 20 mg, Oral, BID ?? folic acid 1 mg in 0.9% NaCl IV 50 mL IVPB, Intravenous, QDAY ?? ibuprofen (MOTRIN) tablet 600 mg, Oral, q6h ?? influenza quadrivalent vac (FLULAVAL QUAD) injection (6 month +) 0.5 mL, Intramuscular, Immunization - Once ?? iron polysaccharides (NIFEREX 150) capsule 150 mg, Oral, QDAY ?? magnesium hydroxide (MILK OF MAGNESIA) suspension 30 mL, Oral, QDAY ?? measles, mumps and rubella vaccine (MMR) injection 0.5 mL, Subcutaneous, Immunization - Once ?? nitrofurantoin monohyd macro crystals (MACROBID) capsule 100 mg, Oral, BID WC ?? polyethylene glycol 3350 (MIRALAX) packet 17 g, Oral, QDAY ?? vitamin with iron tablet 1 tablet, Oral, QDAY ?? simethicone (MYLICON) chew tablet 160 mg, Oral, QDAY ?? Tdap (wkktord-vrvgehebza-dlakv pertussis) (BOOSTRIX) (7y+) injection 0.5 mL, Intramuscular, Immunization - Once Data Recent Labs Component Name 04/22/2092704/21/20 0445 04/20/20 1946 WBC 13.3* 22.9* 21.9* HGB 8.0* 8.6* 8.2* HCT 24.6* 26.0* 24.5* PLTCOUNT 219 211 200 Recent Labs Component Name 04/22/2092704/21/20 0641 04/20/20 1042 SODIUM 135* 132* 133* 135* POTASSIUM 3.3* 3.0* 3.0* 4.0 CHLORIDE 103 100 101 108* CO2 27 26 26 24 BUN 13 13 13 18 CREATININE 0.66 0.63 0.65 0.65 GLUCOSE 79 119* 118* 103 CALCIUM 7.1* 6.8* 6.9* 7.4* Recent Labs Component Name 04/22/2092704/21/20 0641 04/20/20 1042 04/18/20 0537 ALBUMIN 2.0* 2.1* 2.1* 1.9* - 2.6* ALKPHOS 95 105 - - 192* ALT 26 23 19 - 22 AST 32 28 27 - 34 TBIL 0.5 0.4 - - 0.5 TPROT 5.1* 5.9* - - 4.7* - = values in this interval not displayed. No results for input(s): CDIFFTOXINAB in the last 85270 hours. No results for input(s): SEDRATE in the last 96370 hours. No results for input(s): CRP in the last 05257 hours. No results for input(s): CK in the last 35604 hours. .No results for input(s): VANCOTROUGH, VANCOPEAK, VANCSERIES in the last 25958 hours. Invalid input(s): HOOD Recent Labs Component Name 04/18/20 0413 HGBA1C 5.2 Recent Labs Component Name 04/17/202056 COLORUA Yellow CLARITYUA Slt Cloudy* SPECGRAVUA 1.015 PHUA 6.0 PROTEINUA 1+* BLOODUA 3+* LEUKOCYTEUA Negative NITRITEUA Negative GLUCOSEUA Negative KETONEUA Negative BILIRUBINUA Negative UROBILINUA Negative WBCUA 6-10* RBCUA >100* BACTUA None Seen Recent Labs Component Name 12/08/19 0703 FERRITIN 2* No results for input(s): PROCALCITON in the last 29112 hours. Microbiology Radiology Assessment Presentation in hemorrhagic shock due to bleeding from abruptio placenta status post emergent on April 20 Hepatitis C IV drug use Plan No contraindication to steroids Hepatitis A vaccine as outpatient The patient can get hepatitis C treatment if she is drug free for 6 months Discussed with family Please call with questions Please be advised that part of this text was done using voice recognition software. Errors may havebeen missed upon review. Bee Kauffman MD * Chevy Genevieve, MOBILE DEVELOPER - 04/21/2020 11:[address] JUDGE CASE MANAGEMENT PSYCHOSOCIAL ASSESSMENT Reason for Referral: Chemical Dependency/ ETOH /Substance Abuse. Mother with hx of vicodin, meth and herorin use. [place] drug screen- cords +methamphetamines, amphetamines, and butalbital GERALD placed DCFS referral on 04/18/20. DCFS worker is Irlanda Adams ([phone]; fax [phone]). GERALD has faxed UDS and cord results to DCFS and left a voicemail on 04/21/20 to provide additional information. GERALD is waiting to hear back from DCFS regarding d/c plan. GERALD met with pt at bedside who stated she was tired and was quiet with SW. She answered SW questionsand SW encouraged her to reach out with any additional needs or concerns. Infants are Chacha Smalls (04/18/20). Patient diagnosis and relevant medical history: DX: The primary encounter diagnosis was Respiratory distress of . Diagnoses of Twin liveborninfant, delivered by and Encounter for other specified special examinations were also pertinent to this visit. Father of baby: FOB is Rc Hampton who pt reported is involved and supportive. Language Barriers: None Cultural Barriers: None Ethnicity: Unavailable Lang: CYMRAES Patient's Address: Pt stated she resides at [address] [place] [id number] Pt's phone number: [phone] Pt shared she does not currently have her cell ph in her room. Family Support (name and phone) Extended Emergency Contact Information Primary Emergency Contact: Ballard, Jade Address: [address] [place] [address] [place] Mobile Relation: Mother Airport Operations Specialist needed? No Alternative Glue Sprayer Family Strengths: Pt shared she has a good support system, including her mother. Family Dynamic/Household Composition/Other children: Pt shared she resides with DANIELLE and his father. She shared her mother (Brittany Smalls) lives nearby and cares for her 2 other children. She reported to SW she maintains custody of her other 2 children, but are placed with her mother. Alcohol/Drug/Smoking History (including history of tx): Pt acknowledged her hx and recent methamphetamine use. UDS +amphetamines on 04/17/20, 01/23/20, and 12/08/19. Pt indicated she has a hx of vicodin and heroine use from years ago, but denied any recent use. She described how she had completed substance use treatment while in [facility] years ago and was on substance medication during that time. Pt stated I am not going to do the drugs when asked about her current supports in place to help with substance treatment. SW discussed and provided information for substance use treatment options. Pt was tired and expressed she would explore them later and SW encouraged her to reach out with questions. Pt did not state whether she would commit to substance use treatment. Cord results for both babies returned +amphetamines, methamphetamines, and butalbital. SW discussedthe drug screen and the DCFS reporting process. SW discussed that a DCFS referral had been placed on Tuesday (04/18/20) and would be reaching out to conduct their assessment and determine the d/c plan for the babies. SW answered pt's questions regarding this process. Psychiatric History: Pt reported no hx or current symptoms of anxiety or depression. Pt reported nohx of medications or psych treatment. Pt expressed familiarity with PPD and SW discussed the Peer Support Line, Woman and 's Resource Guide, [place] psych supports. Employment: Pt shared she is not currently employed. Education: Pt shared she has completed 11th grade. Government assistance TANF (Temporary Assistance to Needy Families)- No Food [place]- Yes WIC- Yes SSI- No Insurance: Payor/Plan Subscriber Name Rel Member # Group # MEDICAID - PENDING - * BROCK SMALLS * SON [id number] [address] [address] Community Resources Utilized: DCFS is involved. Designated Fitting Room Attendant: Pt indicated she has identified a respiratory therapy director. Referrals: Nurses for Newborns- [place] resident Child protection referral- GERALD placed DCFS referral on 04/18/20 DFS/DCFS-Name of worker: Irlanda Adams Phone number: [phone]; fax [phone] Does the family have the following basic discharge needs? Pt denied any resource needs at this time. Utilities- Yes Telephone- Yes Car seat- Yes Crib- Yes Baby clothing- Yes Pug Machine Operator/School: Pt shared she plans to stay home to care for the twins with the support of FOB and her mother. Transportation: Pt indicated she would get a ride home at time of d/c from a family member or FOB. Family planning: The pt and her SUPERIOR COURT JUDGE have discussed family planning. Recommended discharge plan for infant: Do not d/c infants home without DCFS approval. D/c plan to be determined by DCFS. Per nursing, infants are expected to be medically ready for d/c 04/22/20. SW iswaiting to hear back from DCFS regarding d/c plan. Addendum: 4:20 pm DCFS worker Irlanda Adams indicated she plans to go to court to take custody of the twins Tuesday (04/22). She indicated she would fax the court order and placement letter to once received.She shared she has to connect with pt and Brittany (pt's mother) regarding this placement and conduct the home visit before placement can approved. JAYLYN James Office Ascom * Chen Watts RD/LD - 04/18/2020 2:11 PM CDTAssociated Order(s): IP CONSULT TO NUTRITIONAL SERV Clinical Nutrition Consult received per TF protocol. Clinical nutrition already following. Med/Surg History and Clinical Diagnoses: hemorrhagic shock, acute hypoxic respiratory failure, lactic acidosis, s/p emergent with twin ; h/o hepatitis C, anemia Estimated Needs: KCAL: 9240-6418(20-25 kcal/kg IBW) Protein (g): 60-100(1.2-2 gm/kg IBW) Fluid (ml): 1 ml/kcal Recommended Access Route: PO Recent Labs Component Name 04/18/20 1225 04/18/20 0937 04/18/20 0537 LACTICACID 2.8* 4.6* 6.9* Received phone call from resident. Lactic acid continues to trend down. Dr. Brown would like to start enteral feeds. Recommended starting Vital 1.2 at 20 mL/hr. Vital 1.2 @ 20 ml/hr will provide 576Calories, 36 gms Protein, 53 gms Carb, 2 gms Fiber and 389 mls of free water, which is 57% of estimated energy needs and 60% of estimated protein needs. TF ordered as recommended. If tolerated, can advance as tolerated to goal rate of 45 mL/hr. Vital 1.2 @ 45 ml/hr will provide 1296 Calories, 81 gms Protein, 119 gms Carb, 5 gms Fiber, and 876 mls of free water, which is 26 kcal/kg IBW (17.6 kcal/kg BW) and 1.62 gm protein/kg IBW. Will continue to follow at high nutritional risk per protocol. JÚNIOR Pal, MS 04/18/2020 2:11 PM Ascom [id number] * Genevieve Reece MSW - 04/18/2020 2:08 PM CDTAssociated Order(s): IP CONSULT TO EMPLOYMENT SUPERVISOR Social Service Consult -- Brief Reason for Referral: Mother with hx of vicodin, meth and herorin use. [place] drug screen. Cords remain pending. Male/female twins (04/18/20). SW unable to conduct assessment at this time due to pt intubated and sedated. DCFS referral submitted (04/18/20 at 2 pm). Assessment/Interventions/Plan: SW has made 2 attempts to reach out to family for additional information. SW has been unable to connect with FOB or pt mother at this time. SW placed DCFS referral for +UDS for amphetamines on 04/17/20, 01/23/20, and 12/08/19. Per chart review, pt has self-reported methamphetamine use. Cord results remain pending. Hotline plastics worker is Otf Breaux . SW connected with nursing who shared pt is expected to remain inpatient through the weekend and twins may be ready for d/c Tuesday or Tuesday. SW will continue to follow-up to provide support and assistance as needed. SW will follow-up to conduct assessment. Genevieve Reece MSW Office Ascom * Chen Watts, AVELINA/LD - 04/18/2020 12:50 PM CDTAssociated Order(s): IP CONSULT TO NUTRITIONAL SERV CLINICAL NUTRITION ASSESSMENT Assessment: Patient discussed in rounds. Consult received /2 vent protocol. Patient s/p emergency section 04/17 for suspected placental abruption with deceleration. Transferred to ICU with low BP,hypothermia. Intubated. On esau hugger. Propofol is currently running at 13.23 ml/ hour which provides pt with 349 kmi per day from lipids. Requiring levophed for pressor support. Lactic acid elevated, currently on 4.6. Not currently appropriate for enteral feeds. Recommend TF of Vital 1.2 with goal of 45 mL/hr when medically appropriate. Vital 1.2 @ 45 ml/hr will provide 1296 Calories, 81 gms Protein, 119 gms Carb, 5 gms Fiber, and 876 mls of free water, which is 26 kcal/kg IBW (17.6 kcal/kg BW) and 1.62 gm protein/kg IBW. Supplemented with vitamin B12, folic acid, venofer. Last BM CHRONOGRAPH OPERATOR. Active bowel sounds noted. EMR indicates weight up 23# in past four months with . BUN elevated,trending up. Albumin depleted at 2.6. Mg repleted. Patient is on solu-medrol - anticipate elevated blood glucose throughout steroid window. Med/Surg History and Clinical Diagnoses: hemorrhagic shock, acute hypoxic respiratory failure, lactic acidosis, s/p emergent with twin ; h/o hepatitis C, anemia Height: 5' 2 (157.5 cm) Wt Readings from Last 5 Encounters: 04/17/20 162 lb (73.5 kg) 01/23/20 152 lb (68.9 kg) 12/19/19 142 lb (64.4 kg) 12/08/19 139 lb 14.4 oz (63.5 kg) Weight Method (Utilize Scales): Stated IBW: 110# 147%IBW BMI: Body mass index is 29.63 kg/m??. BMI Range: Overweight Unintentional weight change: up 23# in past four months with Current diet order: NPO Food Allergies: No known food allergies P.O.Intake for the past 48 hrs: No data recorded No data recorded GI Concerns: None Chewing/Swallowing: Other (Comment)(intubated) Pain affecting intake: No Estimated Needs: KCAL: 9583-5348(20-25 kcal/kg IBW) Protein (g): 60-100(1.2-2 gm/kg IBW) Fluid (ml): 1 ml/kcal Recommended Access Route: PO Labs: Recent Labs Component Name 04/18/20 0537 04/18/20 0413 04/17/202056 SODIUM 138 139 138 POTASSIUM 4.8 4.0 4.3 CHLORIDE 110* 113* 112* CO2 13* 15* 16* BUN 20* 19* 21* CREATININE 1.02 0.99 1.07 GLUCOSE 306* 202* 67* CALCIUM 6.8* 7.1* 7.8* ALBUMIN 2.6* 2.3* 2.7* Recent Labs Component Name 04/18/20 0930 04/18/20 0750 04/18/20 0537 HGB 6.3* 8.2* 8.9* HCT 18.8* 25.1* 28.6* Recent Labs Component Name 04/18/20 0413 HGBA1C 5.2 No results for input(s): PREALBUMIN in the last 94733 hours. No results for input(s): PHOS, PHOSPHORUS in the last 64267 hours. Recent Labs Component Name 04/18/20 0537 MAGNESIUM 1.3* Patient Vitals for the past 30 hrs: Glucose Bedside (mg/dL) 04/18/20 0600 306 mg/dL Intake/Output Summary (Last 24 hours) at 04/18/2020 1250 Last data filed at 04/18/2020 1214 Gross per 24 hour Intake 7707.49 ml Output 5719 ml Net 1988.49 ml PERTINENT MEDICATIONS FOR CURRENT ENCOUNTER: ?? SCHEDULED MEDICATIONS: ?? 0.9% NaCl injection 3 mL, Intracatheter, q8h ?? artificial tears ophthalmic ointment, Each Eye, q8h ?? chlorhexidine (PERIDEX) 0.12 % oral solution 15 mL, Mouth/Throat, BID ?? cyanocobalamin (VITAMIN B-12) injection 1,000 mcg, Intramuscular, QDAY ?? folic acid 1 mg in 0.9% NaCl IV 50 mL IVPB, Intravenous, QDAY ?? iron sucrose (VENOFER) 300 mg in 0.9% NaCl IV 265 mL IVPB, Intravenous, QDAY ?? pantoprazole (PROTONIX) injection 40 mg, Intravenous, QDAY ?? [COMPLETED] rbrnmenwmc-tvlrzhvzreckj-xsdhzvhd (FIORICET) 50-325-40 MG tablet 1 tablet, Oral, Once ?? [COMPLETED] carboprost (HEMABATE) injection 250 mcg, Intramuscular, Once ?? [COMPLETED] etomidate (AMIDATE) injection 40 mg, Intravenous, Once ?? [COMPLETED] fentaNYL (PF) (SUBLIMAZE) injection 100 mcg, Intravenous, Once ?? [COMPLETED] immune globulin (GAMUNEX-C) 10 % 10 g, Intravenous, QDAY ?? [COMPLETED] lactated ringers IV bolus, Intravenous, Once ?? [COMPLETED] lactated ringers IV bolus, Intravenous, Once ?? [COMPLETED] magnesium sulfate 2 g in 50 mL bolus, Intravenous, Once ?? [COMPLETED] methylPREDNISolone sod succ (SOLU-Medrol) 1,000 mg in 0.9% NaCl IV 100 mL bolus, Intravenous, Once ?? [COMPLETED] phenylephrine 100 mcg/mL injection 1,000 mcg, Intravenous, Once ?? [COMPLETED] rocuronium (ZEMURON) injection 100 mg, Intravenous, Once ?? CONTINUOUS MEDICATIONS: ?? 0.9% NaCl flush bag, Intravenous, CONTINUOUS PRN ?? fentaNYL 2500 mcg/50mL (SUBLIMAZE) infusion, Intravenous, Continuous ?? immune globulin (GAMUNEX-C) 10 % 40 g, Intravenous, Continuous ?? lactated ringers infusion, Intravenous, Continuous ?? norepinephrine (LEVOPHED) 32 mg in dextrose 5 % 250 mL infusion, Intravenous, Continuous ?? oxytocin (PITOCIN) 30 units in 500 mL 0.9% sodium chloride infusion, Intravenous, CONTINUOUS PRN ?? propofol (DIPRIVAN) infusion, Intravenous, Continuous Skin/Wound: abdomen incision Last BM: CHRONOGRAPH OPERATOR Nutrition Care Process (1) Nutrition Diagnostic Statement: Inadequate oral intake related to:: decreased ability to consume or tolerate food and/or fluids due to illness as evidenced by:: oral intake insufficient to meet estimated requirements Nutrition Intervention: Enteral nutrition: Education needed: None Education was not indicated. Follow at high risk. Nutrition recommendation: agree with current nutrition order ?? Not currently appropriate for enteral feeds ?? Recommend TF of Vital 1.2 with goal of 45 mL/hr when medically appropriate Monitoring: ?? Ability to use GI tract ?? MAP, pressor requirements, lactic acid ?? GI function/bowel movements ?? Weights ?? Labs ?? Skin integrity/incision/wound healing Evaluation: Nutrition Goal: Total intake will meet estimated nutrient needs Nutrition Goal Timeframe: Ongoing Chen Watts RD/[place]VARA, MS 04/18/2020 12:50 PM Ascom [id number] * Chen Garcia RN - 04/18/2020 12:44 PM CDTAssociated Order(s): IP CONSULT TO consultation: Due to Hillary's recent substance use, she is not a candidate for at this time. (+ Amphetamines 04/17/2020). Chen Garcia RN 04/18/2020 12:44 PM * Heraclio Dave MD - 04/18/2020 7:30 AM CDTAssociated Order(s): IP CONSULT TO HEMATOLOGY Hematology/ Oncology Patient's name:Hillary Smalls Date of : 1990 Date of admission: 04/17/2020 Date of visit:04/18/2020 Patient's Primary Care Physician: Alejandro Blevins MD Physician requesting consultation: Phuong Frazier MD Hematological/ Oncological consultation was requested by Dr. Phuong Frazier MD on 04/18/2020 forthe evaluation and management of the patient's severe thrombocytopenia, persistent vaginal bleeding, severe anemia in the setting of chronic thrombocytopenia, drug abuse and recent surgery . The patient's medical information and historical details were obtained from the patient and from medical records. Chief complaint/ history of present illness: Hillary Smalls is a 29 year old White/ female, who was admitted on 04/17/2020 with vaginalbleeding and severe thrombocytopenia at 38 weeks twin . Her past medical history is significant for untreated chronic hepatitis C infection, vitamin B12 deficiency, iron deficiency,, folate d eficiency, polysubstance drug abuse, chronic thrombocytopenia duration unknown, for which she had aprior bone marrow biopsy [address] Bonilla, hematology, results apparently unremarkable per chart notes, and for which she had followed up with him in the past for a few visits. More recently,she was admitted to the MF service at [facility] Nov, 2019 at 19 weeks gestation with twin with severe anemia and thrombocytopenia at about 61,000 platelets and was evaluated by my colleague, Dr. Pino. Her workup at that time was notable for B12, folate and iron deficiency and her thrombocytopenia that time was deemed to be due to chronic untreated HCV infection, possible chronic ITP, nutritional deficiency of folate and B12. No evidence of hemolysis or microangiopathic hemolytic anemia/TMA was reported at that time. She was recommended outpatient follow-up with hepatology and her own local veneer sheet repairer . The patient is currently sedated and intubated and can offer no history. Chart notes indicate that she was being followed by her veneer sheet repairer, Dr. Alex in [place] and was receiving B12, folate and iron supplements and had seen a bag sorter, Dr. Jain, but had not initiated any therapy for her HCV infection.. She initially presented at [facility] ED and was transferred to [facility] for a higher level of care. During transport, she had active vaginal bleeding with clots. Labs on admission showed a WBC count of 7900, HGB 10.1,HCT 31.8, platelets 30 K. she was taken to the OR emergently for for suspected placental abruption which was confirmed intraoperatively. She has continued to have active blood loss with hemodynamic instability, hypothermia, hypotension and tachycardia. Estimated blood loss during was about 4 L. She received 4 units of platelets,1 unit of PRBC, 1 unit of FFP, methergine, tranexamic acid, 800 mcg Cytotec, hemabate 250 mcg x 2, pitocin, and dexametha sone prior to coming to the ICU per ICU resident notes. This was followed by an additional 4 units of PRBCs, 4 units of FFP and 2 packs of cryoprecipitate. A Bakri balloon was placed by the [facility] service in the uterine fundus which showed steady vaginal bleeding. The patient is currently sedated and intubated on a mechanical ventilator. Remains on Levophed. No recent history of infections or fevers. No bleeding from other line sites or mucosal bleeding. No prior history of autoimmune disorders. Review of Systems: as per HPI/ interval history Intubated, cannot be obtained. Past Medical History: Diagnosis Date ??? History of anemia ??? History of headache ??? Liver disease Hep C Past surgical history: Recent Social history: reports that she has been smoking cigarettes. She started smoking about 15 years ago. She has a 7.50 pack-year smoking history. She has never used smokeless tobacco. She reports previous alcohol use.She reports current drug use. Drug: Methamphetamines. Family History Problem Relation Name Age of Onset ??? None Known Paternal Grandfather ??? None Known Paternal Grandmother ??? None Known Maternal Grandmother ??? None Known Maternal Grandfather ??? None Known Father ??? None Known Mother ??? None Known Brother ??? None Known Sister ??? None Known Other Intubated, cannot be obtained Allergies: Allergies Allergen Reactions ??? Bee Venom Anaphylaxis ??? Shellfish Allergy Anaphylaxis Medications: Current Facility-Administered Medications Medication Dose Route Frequency Provider Last Rate Last Dose ??? 0.9% NaCl flush bag 250 mL Intravenous CONTINUOUS PRN Clem Brown MD 3 mL/hr at 04/18/20 1155 ??? 0.9% NaCl infusion ADS Med ??? 0.9% NaCl infusion ADS Med ??? 0.9% NaCl infusion ADS Med ??? 0.9% NaCl infusion rate and volume 250 mL Intravenous Once PRN Snehal Ellis MD ??? 0.9% NaCl injection 3 mL 3 mL Intracatheter q8h Annabella Johnson MD 3 mL at 04/18/20 1433 And ??? 0.9% NaCl injection 1-10 mL 1-10 mL Intracatheter PRN Annabella Johnson MD 10 mL at 04/18/20 1431 ??? artificial tears ophthalmic ointment Each Eye q8h Maikel Ring MD ??? carboprost (HEMABATE) injection ADS Med ??? chlorhexidine (PERIDEX) 0.12 % oral solution 15 mL 15 mL Mouth/Throat BID Maikel Ring MD 15 mL at 04/18/20 0922 ??? cyanocobalamin (VITAMIN B-12) injection 1,000 mcg 1,000 mcg Intramuscular QDAY Heraclio Dave MD1,000 mcg at 04/18/20 0943 ??? dextrose IV 12.5-25 g 25-50 mL Intravenous PRN Snehal Ellis MD ??? dextrose IV 12.5-25 g 25-50 mL Intravenous PRN Nimesh Luu MD ??? fentaNYL (SUBLIMAZE) bolus from infusion bag 50 mcg 50 mcg Intravenous BOLUS FROM BAG PRN Maikel Ring MD 100 mcg at 04/18/20 0626 ??? fentaNYL 2500 mcg/50mL (SUBLIMAZE) infusion 25 mcg/hr Intravenous Continuous Dudaie, Clem, MD 0.5 mL/hr at 04/18/20 1214 25 mcg/hr at 04/18/20 1214 ??? folic acid 1 mg in 0.9% NaCl IV 50 mL IVPB 1 mg Intravenous QDHeraclio Smith MD Stopped at 04/18/20 1238 ??? glucagon (GLUCAGEN) injection 1 mg 1 mg Intramuscular PRNimesh Rosa MD ??? glucose (Diabetic Use) oral gel Oral PRN Nimesh Luu MD ??? insulin aspart (NovoLOG) pen 0-6 Units 0-6 Units Subcutaneous q4h Nimesh Luu MD ??? iron sucrose (VENOFER) 300 mg in 0.9% NaCl IV 265 mL IVPB 300 mg Intravenous Heracloi Huerta MD Stopped at 04/18/20 1155 ??? lactated ringers infusion Intravenous Continuous Snehal Ellis MD 250 mL/hr at 04/18/20 1214 ??? norepinephrine (LEVOPHED) 32 mg in dextrose 5 % 250 mL infusion 0-0.6 mcg/kg/min Intravenous Continuous Maikel Ring MD Stopped at 04/18/20 1027 ??? oxytocin (PITOCIN) 30 units in 500 mL 0.9% sodium chloride infusion 125 nitin-units/min Intravenous CONTINUOUS Luisa Jefferson MD 125 mL/hr at 04/18/20 1214 125 nitin-units/min at 04/18/20 1214 ??? pantoprazole (PROTONIX) injection 40 mg 40 mg Intravenous QDMaikel Funk MD 40 mg at 04/18/20 0922 ??? propofol (DIPRIVAN) infusion 0-80 mcg/kg/min Intravenous Continuous Clem Brown MD 11.03 mL/hr at 04/18/20 1215 25 mcg/kg/min at 04/18/20 1215 Medications in Sep. Physical examination: height is 5' 2 and weight is 162 lb. Her temperature is 98.6 ??F (37 ??C). Her blood pressure is 97/75 and her pulse is 83. Her respiration is 20 and oxygen saturation is 100%. General appearance: Young female, intubated, sedated, unresponsive on mechanical ventilation Skin: no rashes, or bruising noted. Pale. Head: normocephalic, atraumatic. Eyes: sclera and conjunctiva clear, pale, PERRLA Ears: no drainage. Nose: anterior nares normal, no bleeding. Oral cavity and Throat: ET tube in place, Neck: no thyromegaly, no palpable cervical nodes, no supraclavicular adenopathyBreasts: deferred Respiratory: Coarse breath sounds heard, no rales, no rhonchi Cardiovascular: pulses equal, S1 and S2 heard, no S3, no S4, no rubs no murmurs. Abdomen: soft, mildly distended bowel sounds heard, no masses, no palpable organomegaly. Rectal: deferred Genito-urinary: deferred. Bakri balloon in place with bloody drainage in catheter Lymphatic: no palpable cervical, supraclavicular, axillary adenopathy noted. Extremities: no clubbing no edema. Musculo-skeletal: joints intact bilaterally Neurological: Sedated, intubated, unresponsive on ventilator Laboratory data: ANC [id number] ALC 1488 Recent Labs Component Name 04/18/20 1429 04/18/20 0930 04/18/20 0753 04/18/20 0750 04/18/20 0537 WBC 12.4* 16.9* - 17.6* 23.1* RBC 2.65* 2.20* - 2.96* 3.23* HGB 7.7* 6.3* - 8.2* 8.9* HCT 21.9* 18.8* - 25.1* 28.6* MCV 82.6 85.5 - 84.8 88.5 MCHC 35.2 33.5 - 32.7 31.1 RDWCV 16.6* 15.9* - 15.7* 16.3* PLTCOUNT 48* 54* 51* 53* 38* 39* NEUTPCT - 90.6* - 91.9* 87.8* LYMPHPCT - 4.3* - 4.4* 5.2* BASOPHILPCT - 0.2 - 0.2 0.4 GRANSIMMPCT - 1.5* - 1.4* 4.4* LYMPHABS - 0.73* - 0.77* 1.21 BASOABS - 0.03 - 0.04 0.09* NRBCAUTO 0 0 - 0 0 Recent Labs Component Name 04/18/20 0537 04/18/20 0413 04/17/20 2057 SODIUM 138 139 138 POTASSIUM 4.8 4.0 4.3 CHLORIDE 110* 113* 112* CO2 13* 15* 16* BUN 20* 19* 21* CREATININE 1.02 0.99 1.07 GLUCOSE 306* 202* 67* CALCIUM 6.8* 7.1* 7.8* ALBUMIN 2.6* 2.3* 2.7* ALKPHOS 192* 208* 334* ALT 22 23 30 AST 34 29 40* TBIL 0.5 0.4 0.3 TPROT 4.7* 4.4* 5.3* EGFR >60 >60 60* Recent Labs Component Name 04/18/20 0930 12/08/19 0703 LDH 337* 226* Recent Labs Component Name 04/18/20 1429 04/18/20 0929 04/18/20 0753 PT 13.8 14.3 13.8 INR 1.1 1.2* 1.1 Recent Labs Component Name 04/18/20 1429 04/18/20 0929 04/18/20 0753 PTT 33.5 27.0 27.5 Recent Labs Component Name 04/18/20 0929 04/18/20 0753 04/18/20 0537 FIBRINOGEN 217 278 239 250 Recent Labs Component Name 04/18/20 0930 12/08/19 0703 RETICPCT 1.77* 1.72* Recent Labs Component Name 12/08/19 1134 MARQUITA Negative IgA 65 - 421 mg/dL 82 IgG 552-1,631 mg/dL 1,629 IgM 33 - 293 mg/dL 149 Recent Labs Component Name 12/08/19 0703 HAPTOGLOBIN 118 Liset -negative Recent Labs Component Name 04/18/20 0930 VITB12 220 HIV1/2 Ab + P24 Ag Non Reactive Non Reactive 12/28/19 INTRINSIC FACTOR BLK. AB. Negative Negative 12/08/19 Hepatitis C Virus Quantitation IU/mL [id number] Hepatitis C Virus Log 10 log10 IU/mL 5.959 LA with DRVVT - negative Beta 2 glycoprotein antibody titers IgG/IgM-negative Cardiolipin antibody IgG/IgA-negative. IgM 37 (low to medium positive) Imaging data: Portable chest j-twr-SYIVGRHQ/IMPRESSION: The tip of the endotracheal tube may terminate at the cusp of the right main bronchus, recommend retraction. An enteric tube is followed to the mid esophagus, recommend repositioning. No focal consolidation or pleural effusion is identified. The cardiac silhouette and mediastinal contours appear normal. ?? Findings were conveyed to the patient's nurse Nika at 8:58 AM on 04/18/2020. ?? Pathology data: Peripheral blood smear-my review-marked neutrophilia, leukocytosis with left shift, no blasts,, normocytic, hypochromic red cells, numerous violetta cells, rare fragmented cells, occasional teardrops, occasional elliptocytes, marked thrombocytopenia, no clumps. Assessment: In summary, Hillary Smalls is a critically ill 29 year old female with : 1. Placental abruption at 38 weeks twin , status post emergent C- section 04/18/2020 with hemorrhage 2. Hemorrhagic, hypovolemic shock, severe anemia from large volume vaginal blood loss due to 1 3. Chronic thrombocytopenia, multifactorial 4. Hypoxic respiratory failure, lactic acidosis, on intubation, mechanical ventilation 5. Chronic B12, folate, iron deficiency anemia 6. Untreated HCV infection, mildly deranged hepatic function 7. Polysubstance drug abuse, IV drug abuse Plan: Chart, imaging data, laboratory / pathology data reviewed, patient seen and examined. 1. Placental abruption at 38 weeks twin , status post emergent C- section 04/18/2020 with hemorrhage- Management as per the maternal medicine team. Continues to have ongoing vaginal bleeding. Type cross match and transfuse PRBCs to keep hemoglobin greater than 7 grams/deciliter, transfuse platelets if bleeding to keep platelet count greater than 50,000, transfuse cryoprecipitate if her fibrinogen level falls below 150, transfuse FFP if she develops a coagulopathy with INR greater than 1.5. If she continues to have bleeding despite blood product support, consider interventional radiology evaluation for Gelfoam embolization. 2. Hemorrhagic, hypovolemic shock, severe anemia from large volume vaginal blood loss due to 1- blood product management as above. Monitor coags, counts closely. Start IV iron. 3. Chronic thrombocytopenia- multifactorial from chronic untreated HCV infection, possible concomitant immune thrombocytopenia, severe B12 deficiency, folate deficiency, polysubstance abuse. Start Solu-Medrol 1 g pulse dose IV infusion daily x3 days. Start IVIG 1 gram/kg per day infusion as soon aspossible daily x2 doses. Transfuse platelets if bleeding to keep platelet count greater than 50,000. Blood product recommendations as above. No evidence of hemolysis on current lab evaluation, no peripheral smear or lab evidence of thrombotic microangiopathy or microangiopathic hemolytic anemia. Noevidence of DIC. Monitor closely for sepsis/infection. Has an indeterminate low titer cardiolipin IgM antibody with negative beta 2 glycoprotein antibodies, negative lupus anticoagulant, no prior history of arterial or venous thromboembolic events. Will need to repeat labs when stable. This is not clinically suggestive of catastrophic APS. 4. Hypoxic respiratory failure, lactic acidosis, on intubation, mechanical ventilation-management as per the ICU team. 5. Chronic B12, folate, iron deficiency anemia-start vitamin B12 1000 mcg IM daily x7 days, [id number] mg IV infusion daily x3 days, folic acid 1 mg IV daily. 6. Untreated HCV infection, mildly deranged hepatic function-monitor LFTs. Will need to start therapy directed against HCV once stable 7. Polysubstance drug abuse, IV drug abuse-UDS positive for amphetamine. Monitor for withdrawal. Discussed with the ICU resident team, the patient's RN, and with Dr. Brown, patch machine operator. Dr. Castillo, is covering our group over the weekend and will be available for any questions as needed. Dr Haider will cover my inpatient service on Tuesday04/21/2020 Heraclio Dave MD, FACP Hematology and Medical Oncology [facility] [address] [place] [address], [place] [address] Exchange: [phone] Please be advised that voice recognition software has been used on this chart and inadvertent errors may occur. These may not represent a true interpretation of the dictation given. 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 Information for the patient's : Serina Baby Girl 1 Hillary [[id number]] Date of 04/18/2020 Time of : 2:53 AM Sex: Female Weight: 2640 g (5 lb 13.1 oz) (1 min): 6 (5 min): 7 (10 min): 8 Information for the patient's : Serina Baby Boy 2 Hillary [[id number]] Date of 04/18/2020 Time of : 2:54 AM Sex: Male Weight: 2640 g (5 lb 13.1 oz) (1 min): 5 (5 min): 8 (10 min): Twin A: Cord Blood Gas, Arterial: pH 7.08, Base excess -12.5 Cord Blood Gas, Venous: pH 7.09, Base excess -13.1 Twin B: Cord Blood Gas, Arterial: pH 6.92, Base excess -16.3 Cord Blood Gas, Venous: pH 6.98, Base excess -15.6 Measured Blood Loss: 4134 mL Drains: Johnson catheter Total IV Fluids: 2700 mL Blood products: 2 units platelets, 1 unit pRBCs intraoperatively Uterotonics: Pitocin, Hemabate, TXA, Methergine, Cytotec 800 mcg UOP: 200 mL Procedure: The patient was taken emergently to the operating room after informed consent was given.Patient was placed in dorsal supine position with left lateral tilt. heart tones were doppledand were noted to be around 90s and 130s bpm. The patient was prepped and draped in an urgent, sterile manner. Induction of general anesthesia was performed. A asmita out was not held. A Pop-Mccormick incision was made and carried down through the subcutaneous tissue to the fascia. Small bilateral incisions on the fascia were made using the scalpel and the fascial incision was extended laterally with manual traction cephalad and caudad. Midline of the rectus muscles were identified and the peritoneum entered bluntly and the muscles laterally manually. Peritoneal incisionwas extended longitudinally with manual traction. Bladder blade was inserted. The lower uterine segment was identified. A low transverse uterine incision was made. Large amount of blood was noted on uterine entry. A 2640 gram delivered from a vertex presentation with scores of 6 at one minute and 7 at five minutes and 8 at ten minutes. The cord was doubly clamped and cut. A 2640 gram infant delivered from a breech presentation with scores of 5 at one minute and 8 at five minutes. The umbilical cord was doubly clamped and cut. Cord blood was obtained for evaluation x2. The placentas were removed intact and appeared consistent with placental abruption. The uterus was exteriorized and cleaned of all clots and debris. The uterine outline, tubes and ovaries appeared normal. The uterine incisionwas closed with running sutures of 0-Monocryl. An imbricating layer was added using 0-Monocryl. A third layer was used to provide further hemostasis with running locked sutures of 0-Monocryl. The uterus was internalized. Surgicel powder was applied. Hemostasis was observed. The fascia was then reapproximated with running sutures of 0-Vicryl. The skin was reapproximated with 4-0 Monocryl in a running subcuticular fashion. Instrument, sponge, and needle counts were correct prior the abdominal closure and at the conclusion of the case. Patient was taken to the recovery room in a stable condition. Dr. James was present and scrubbed for the entire procedure. Mayuri Norton MD 04/18/2020 4:03 AM Associated attestation - Marisa James MD - 04/21/2020 8:05 AM CDT OBGYN ATTENDING DELIVERY ATTESATION I was present, scrubbed and directly supervised the section and delivery of a viable twin infants. Bloody amniotic fluid consistent with large placental abruption noted upon hysterotomy. Delayed cord clamping was not used due to abruption and general anesthesia. Bleeding at the time of surgery was stable - QBL in OR was approx 1400 mL per nursing staff. She received hemabate, methergine,TXA, and cytotec. She had received 4 units of platelets prior to surgery and an additional 2 units intraop with 1 unit of PRBCs started intraop as well. Decision was to give an add'l unit of PRBCs once back to room and assess bleeding after transfusion complete. After leaving the OR, I was called back due to vaginal bleeding. Uterine exploration was not feasible due to lack of analgesia at that point, as patient was no longer under general. FFP was called for and transfused once obtained. She was then transferred to her room. I was present for the entirety of the procedure. I have reviewed and agree with resident's documentation. Marisa James MD 8:00 AM documented in this encounter Miscellaneous Notes * Code Documentation - Nazanin Carrillo RN - 04/18/2020 6:52 AM CDT Called for BID ANALYST at 0446 for decreased BP. Unable to obtain sBP, OB staff at bedside. Immediate emergent transfer to MICU. Transfer to 493 at 0450. Meter Attendant at bedside. Intubated and lined per Dr. Mallory. Four units PRBC, four units FFP and two units cryoprecipitate infused under RTP. No evidence of transfusion reactions noted. STAT labs, ABG obtained. Further orders per DR. Mallory.Nazanin Carrillo RN 04/18/2020 7:29 AM documented in this encounter Plan of Treatment Pending Results Name Type Priority Associated Diagnoses Date/Time TRANSFUSE FRESH FROZEN PLASMA UNIT(S), 2 Units NSG BLD TRANSFUSION Routine 04/18/2020 4:11 AM CDT documented as of this encounter Procedures Procedure Name Priority Date/Time Associated Diagnosis Comments CARDIAC RHYTHM STRIP ORDER 04/24/2020 1:36 PM CDT APHERESIS/TRANSFUSION ORDER 04/24/2020 1:36 PM CDT CBC W AUTO DIFFERENTIAL AM Draw 04/23/20 6:01 AM CDT COMPREHENSIVE METABOLIC PANEL AM Draw 04/23/2020 6:01 AM CDT CBC W AUTO DIFFERENTIAL AM Draw 04/22/20 9:28 AM CDT COMPREHENSIVE METABOLIC PANEL AM Draw 04/22/2020 9:28 AM CDT PREPARE FFP UNIT(S) Routine 04/21/2020 6 :41 AM CDT TYPE + SCREEN PANEL Routine 04/21/2020 6 :41 AM CDT COMPREHENSIVE METABOLIC PANEL STAT 04/21/2020 6:41 AM CDT RENAL FUNCTION PANEL Timed 04/21/2020 6:41 AM CDT MAGNESIUM BLOOD Timed 04/21/2020 6:41 AM CDT LDH BLOOD Routine 04/21/2020 6:41 AM CDT HAPTOGLOBIN Routine 04/21/2020 6:41 AM CDT DIFFERENTIAL MANUAL Routine 04/21/2020 4 :45 AM CDT CBC W AUTO DIFFERENTIAL AM Draw 04/21/20 20 4:45 AM CDT DIFFERENTIAL MANUAL Routine 04/20/2020 7 :46 PM CDT CBC W AUTO DIFFERENTIAL Timed 04/20/20 7:46 PM CDT XR CHEST 2VW STAT 04/20/2020 5:11 PM CDT Pre-eclampsia in third trimester (HCC) CBC W AUTO DIFFERENTIAL Timed 04/20/20 20 2:08 PM CDT CBC W AUTO DIFFERENTIAL AM Draw 04/20/20 10:42 AM CDT RENAL FUNCTION PANEL Timed 04/20/2020 10:42 AM CDT ALT STAT 04/20/2020 10:42 AM CDT AST BLOOD STAT 04/20/2020 10:42 AM CDT MAGNESIUM BLOOD Timed 04/20/2020 10:42 AM CDT LDH BLOOD Routine 04/20/2020 10:42 AM CDT HAPTOGLOBIN Routine 04/20/2020 10:42 AM CDT PTT AM Draw 04/20/2020 10:41 AM CDT PT-INR AM Draw 04/20/2020 10:41 AM CDT TRANSFUSE RED BLOOD CELL LEUKOREDUCED UNIT(S) Routine 04/19/2020 11:08 PM CDT CBC W AUTO DIFFERENTIAL Routine 04/19/20 9:38 PM CDT CBC W AUTO DIFFERENTIAL Timed 04/19/20 1:44 PM CDT GLUCOSE - POINT OF CARE Routine 04/19/20 9:02 AM CDT CBC W AUTO DIFFERENTIAL Timed 04/19/20 3:51 AM CDT RENAL FUNCTION PANEL Timed 04/19/2020 3:51 AM CDT MAGNESIUM BLOOD Timed 04/19/2020 3:51 AM CDT LACTIC ACID BLOOD AM Draw 04/19/2020 3:5 1 AM CDT HAPTOGLOBIN AM Draw 04/19/2020 3:51 AM CDT PT PTT PANEL Timed 04/19/2020 3:50 AM CDT GLUCOSE - POINT OF CARE Routine 04/18/20 11:42 PM CDT TRANSFUSE RED BLOOD CELL LEUKOREDUCED UNIT(S) Routine 04/18/2020 11:32 PM CDT PT PTT PANEL Timed 04/18/2020 10:22 PM CDT CBC W AUTO DIFFERENTIAL Timed 04/18/20 10:22 PM CDT GLUCOSE - POINT OF CARE Routine 04/18/20 8:54 PM CDT PT PTT PANEL Timed 04/18/2020 6:09 PM CDT CBC W AUTO DIFFERENTIAL Timed 04/18/20 6:09 PM CDT GLUCOSE - POINT OF CARE Routine 04/18/20 4:49 PM CDT XR ABDOMEN KUB STAT 04/18/2020 4:29 PM CDT Hemorrhagic shock (HCC) PT PTT PANEL Timed 04/18/2020 2:29 PM CDT DIFFERENTIAL MANUAL Routine 04/18/2020 2 :29 PM CDT CBC W AUTO DIFFERENTIAL Timed 04/18/20 2:29 PM CDT GLUCOSE - POINT OF CARE Routine 04/18/20 2:28 PM CDT LACTIC ACID BLOOD STAT 04/18/2020 12: 25 PM CDT BLOOD GASES ARTERIAL Timed 04/18/2020 12:21 PM CDT TRANSFUSE RED BLOOD CELL LEUKOREDUCED UNIT(S) Routine 04/18/2020 11:39 AM CDT GLUCOSE - POINT OF CARE Routine 04/18/20 11:17 AM CDT TRANSFUSE RED BLOOD CELL LEUKOREDUCED UNIT(S) Routine 04/18/2020 10:33 AM CDT BLOOD GASES ARTERIAL RT STAT 04/18/2020 9:57 AM CDT LACTIC ACID BLOOD STAT 04/18/2020 9:3 7 AM CDT RETIC COUNT STAT 04/18/2020 9:30 AM CDT CBC W AUTO DIFFERENTIAL Timed 04/18/20 9:30 AM CDT LDH BLOOD STAT 04/18/2020 9:30 AM CDT VITAMIN B12 STAT 04/18/2020 9:30 AM CDT IMMUNOGLOBULINS IGG/IGM/IGA PANEL STAT 04/18/2020 9:30 AM CDT [id number] ANTIBODY STAT 04/18/2020 9:2 9 AM CDT REF LAB COMMENT Routine 04/18/2020 9:29 AM CDT [id number] ACTIVITY STAT 04/18/2020 9:2 9 AM CDT LISET DIRECT Routine 04/18/2020 9:29 AM CDT PT PTT PANEL Timed 04/18/2020 9:29 AM CDT FIBRINOGEN ACTIVITY Timed 04/18/2020 9 :29 AM CDT GLUCOSE - POINT OF CARE Routine 04/18/20 9:26 AM CDT PATHOLOGY PERIPHERAL SMEAR REVIEW Routine 04/18/2020 8:31 AM CDT Twin delivery by (HCC) XR CHEST 1VW PORTABLE STAT 04/18/2020 8:15 AM CDT Intubation of airway performed without difficulty COAGULATION PANEL W D-DIMER STAT 04/18/2020 7:53 AM CDT CBC W AUTO DIFFERENTIAL STAT 04/18/20 7:50 AM CDT BLOOD GASES ARTERIAL RT Routine 04/18/2020 7:43 AM CDT BLOOD GASES ARTERIAL RT STAT 04/18/2020 6:07 AM CDT COAGULATION PANEL W D-DIMER STAT 04/18/2020 5:37 AM CDT FIBRINOGEN ACTIVITY Timed 04/18/2020 5 :37 AM CDT PTT Timed 04/18/2020 5:37 AM CDT PT-INR Timed 04/18/2020 5:37 AM CDT SLIDE SCAN HEMATOLOGY Routine 04/18/2020 5:37 AM CDT CBC W AUTO DIFFERENTIAL STAT 04/18/20 5:37 AM CDT TRIGLYCERIDES BLOOD Routine 04/18/2020 5 :37 AM CDT COMPREHENSIVE METABOLIC PANEL STAT 04/18/2020 5:37 AM CDT MAGNESIUM BLOOD STAT 04/18/2020 5:37 AM CDT LACTIC ACID BLOOD STAT 04/18/2020 5:3 7 AM CDT PT EVAL AND TREAT Routine 04/18/2020 5:2 6 AM CDT PATHOLOGY TISSUE EXAM (STL) Routine 04/18/2020 4:24 AM CDT Twin delivery by (HCC) HEMOGLOBIN A1C STAT 04/18/2020 4:13 AM CDT FIBRINOGEN ACTIVITY Timed 04/18/2020 4 :13 AM CDT PTT Timed 04/18/2020 4:13 AM CDT PT-INR Timed 04/18/2020 4:13 AM CDT CBC W AUTO DIFFERENTIAL Timed 04/18/20 4:13 AM CDT COMPREHENSIVE METABOLIC PANEL Routine 04/18/2020 4:13 AM CDT TRANSFUSE FRESH FROZEN PLASMA UNIT(S) Routine 04/18/2020 4:08 AM CDT BLOOD GASES CORD JEREMY RT STAT 04/18/2020 3:12 AM CDT BLOOD GASES CORD ARTERIAL RT STAT 04/18/2020 3:12 AM CDT BLOOD GASES CORD ARTERIAL RT STAT 04/18/2020 3:07 AM CDT BLOOD GASES CORD JEREMY RT STAT 04/18/2020 3:07 AM CDT SECTION (EMERGENCY) 04/18/2020 2:41 AM CDT Twin delivery by (HCC) TRANSFUSE PLATELET PHERESIS UNIT(S) Routine 04/18/2020 2:17 AM CDT TRANSFUSE PLATELET PHERESIS UNIT(S) Routine 04/18/2020 2:03 AM CDT FIBRINOGEN ACTIVITY Timed 04/18/2020 1 2:53 AM CDT PTT Timed 04/18/2020 12:53 AM CDT PT-INR Timed 04/18/2020 12:53 AM CDT CBC W AUTO DIFFERENTIAL Timed 04/18/20 20 12:53 AM CDT TRANSFUSE PLATELET PHERESIS UNIT(S) Routine 04/17/2020 10:28 PM CDT TRANSFUSE PLATELET PHERESIS UNIT(S) Routine 04/17/2020 9:48 PM CDT SYPHILIS ANTIBODY CASCADING REFLEX STAT 04/17/2020 8:57 PM CDT HIV-1 HIV-2 ANTIBODY + HIV P24 AG PANEL STAT 04/17/2020 8:57 PM CDT URINALYSIS REFLEX TO MICROSCOPIC NO CULTURE STAT 04/17/2020 8:57 PM CDT URINE MICROSCOPIC ONLY STAT 0 8:57 PM CDT RUBELLA ANTIBODY IGG Routine 04/17/2020 8:57 PM CDT CULTURE URINE STAT 04/17/2020 8:57 PM CDT FIBRINOGEN ACTIVITY STAT 04/17/2020 8 :57 PM CDT PTT STAT 04/17/2020 8:57 PM CDT PT-INR STAT 04/17/2020 8:57 PM CDT COMPREHENSIVE METABOLIC PANEL STAT 04/17/2020 8:57 PM CDT URINE DRUG SCREEN IMMUNOASSAY STAT 04/17/2020 8:57 PM CDT BLOOD TYPE VERIFICATION Routine 04/17/20 20 8:24 PM CDT PREPARE RBC LEUKOREDUCED UNIT Routine 04/17/2020 8:12 PM CDT PREPARE RBC LEUKOREDUCED UNIT Routine 04/17/2020 8:12 PM CDT PREPARE RBC LEUKOREDUCED UNIT Routine 04/17/2020 8:12 PM CDT PREPARE RBC LEUKOREDUCED UNIT Routine 04/17/2020 8:12 PM CDT PREPARE RBC LEUKOREDUCED UNIT STAT 04/17/2020 8:12 PM CDT PATHOLOGY PERIPHERAL SMEAR REVIEW Routine 04/17/2020 8:12 PM CDT Twin delivery by (HCC) PREPARE CRYOPRECIPITATE UNIT(S) Routine 04/17/2020 8:12 PM CDT PREPARE PLATELET PHERESIS UNIT(S) Routine 04/17/2020 8:12 PM CDT PREPARE PLATELET PHERESIS UNIT(S) Routine 04/17/2020 8:12 PM CDT PREPARE PLATELET PHERESIS UNIT(S) STAT 04/17/2020 8:12 PM CDT PREPARE FFP UNIT(S) Routine 04/17/2020 8 :12 PM CDT TYPE + SCREEN PANEL STAT 04/17/2020 8 :12 PM CDT Twin gestation in third trimester, unspecified multiple gestation type (HCC) SLIDE SCAN HEMATOLOGY Routine 04/17/2020 8:12 PM CDT Twin gestation in third trimester, unspecified multiple gestation type (HCC) CBC W AUTO DIFFERENTIAL STAT 04/17/20 20 8:12 PM CDT Twin gestation in third trimester, unspecified multiple gestation type (HCC) TRANSFUSE FRESH FROZEN PLASMA UNIT(S) Routine TRANSFUSE RED BLOOD CELL LEUKOREDUCED UNIT(S) Routine documented in this encounter Results * CARDIAC RHYTHM STRIP ORDER (04/24/2020 1:36 PM CDT) Narrative 04/24/2020 1:36 PM CDT Ordered by an unspecified provider. Scanned Document CARDIAC SERVICES ORD ERABLES * APHERESIS/TRANSFUSION ORDER (04/24/2020 1:36 PM CDT) Narrative 04/24/2020 1:36 PM CDT Ordered by an unspecified provider. Scanned Document NURSING - VITAL SIGN S AND ASSESSMENT * (ABNORMAL) COMPREHENSIVE METABOLIC PANEL (04/23/2020 6:01 AM CDT) Glucose 82 70 - 105 mg/dL 04/23/2020 7:01 AM CDT [facility] Sodium 135(L) 136 - 145 mmol/L 04/23/2020 7:01 AM CDT [facility] Potassium 3.8 3.5 - 5.1 mmol/L 04/23/2020 7:01 AM CDT [facility] Chloride 102 98 - 107 mmol/L 04/23/2020 7:01 AM CDT [facility] CO2 25 23 - 31 mmol/L 04/23/2020 7:01 AM [facility] Calcium 7.6(L) 8.4 - 10.4 mg/dL 04/23/2020 7:01 AM [facility] Anion Gap 8 8 - 16 mmol/L 04/23/2020 7:01 AM [facility] BUN 14 7 - 18.7 mg/dL 04/23/2020 7:01 AM [facility] Creatinine 0.60 0.57 - 1.11 mg/dL 04/23/2020 7:01 AM [facility] Alkaline Phosphatase 112 40 - 150 U/L 04/23/2020 7:01 AM [facility] ALT 29 0 - 61 U/L 04/23/2020 7:01 AM [facility] AST 34 5 - 34 U/L 04/23/2020 7:01 AM [facility] Protein Total 5.7(L) 6.4 - 8.3 gm/dL 04/23/2020 7:01 AM [facility] Albumin 2.2(L) 3.5 - 5.2 gm/dL 04/23/2020 7:01 AM [facility] Bilirubin Total 0.5 0.2 - 1.0 mg/dL 04/23/2020 7:01 AM [facility] eGFR by MDRD >60 >60 mL/min/1.7 3m2 04/23/2020 7:01 AM [facility] eGFR by MDRD >60 >60 mL/min/1.7 3m2 04/23/2020 7:01 AM [facility] Blood BLOOD SPECIMEN / Unknown Lab Venipuncture / Unknown 04/23/2020 6:01 AM CDT 04/23/2020 6:30 AM T Shira Gracia MD LAB - CHEMISTRY ORD ERABLES [facility] [address] [place] [address] * (ABNORMAL) CBC W AUTO DIFFERENTIAL (04/23/2020 6:01 AM T) [facility] Signature WBC 15.8(H) 4.4 - 10.7 x10E9/L 04/23/2020 6:44 AM CDT [facility] WBC Corrected 04/23/2020 6:44 AM CDT [facility] RBC 2.97(L) 3.80 - 5.20 x10E12/L 04/23/2020 6:44 AM [facility] Hemoglobin 8.4(L) 12.0 - 15.6 gm/dL 04/23/2020 6:44 AM [facility] Hematocrit 25.6(L) 35.9 - 45.5 % 04/23/2020 6:44 AM [facility] MCV 86.2 80.7 - 98.3 fl 04/23/2020 6:44 AM [facility] MCH 28.3 26.7 - 34.0 pg 04/23/2020 6:44 AM [facility] MCHC 32.8 30.8 - 35.9 gm/dL 04/23/2020 6:44 AM [facility] Platelet Count 272 153 - 416 x10E9/L 04/23/2020 6:44 AM [facility] RDW-CV 19.6(H) 12.1 - 14.9 % 04/23/2020 6:44 AM [facility] MPV 10.8 9.4 - 12.9 fl 04/23/2020 6:44 AM [facility] Neutrophils % 79.2(H) 44.0 - 73.0 % 04/23/2020 6:44 AM [facility] Lymphocytes % 11.4(L) 20.0 - 43.0 % 04/23/2020 6:44 AM [facility] Monocytes % 5.2 5.0 - 13.0 % 04/23/2020 6:44 AM [facility] Eosinophils % 0.1 0.0 - 6.0 % 04/23/2020 6:44 AM [facility] Basophils % 0.2 0.0 - 2.0 % 04/23/2020 6:44 AM [facility] Immature Granulocytes 3.9(H) 0 - 1 % 04/23/2020 6:44 AM [facility] Neutrophil Absolute 12.50(H) 2.01 - 7.14 x10E9/L 04/23/2020 6:44 AM [facility] Lymphocytes Absolute 1.80 1.07 - 3.94 x10E9/L 04/23/2020 6:44 AM CDT [facility] Monocytes Absolute 0.82 0.26 - 1.07 x10E9/L 04/23/2020 6:44 AM CDT [facility] Eosinophils Absolute 0.02 0 - 0.47 x10E9/L 04/23/2020 6:44 AM CDT [facility] Basophils Absolute 0.03 0 - 0.08 x10E9/L 04/23/2020 6:44 AM CDT [facility] Immature Granulocytes Absolute 0.62(H) 0.00 - 0.06 x10E9/L 04/23/2020 6:44 AM T [facility] nRBC Auto 4 /100 WBC 04/23/2020 6:44 AM [facility] Blood BLOOD SPECIMEN / Unknown Lab Venipuncture / Unknown 04/23/2020 6:01 AM CDT 04/23/2020 6:30 AM CDT Maikel Ring MD LAB - HEMATOLOGY ORDERABLES [facility] [address] [place] [address] * (ABNORMAL) COMPREHENSIVE METABOLIC PANEL (04/22/2020 9:28 AM CDT) Glucose 79 70 - 105 mg/dL 04/22/2020 10:09 AM [facility] Sodium 135(L) 136 - 145 mmol/L 04/22/2020 10:09 AM [facility] Potassium 3.3(L) 3.5 - 5.1 mmol/L 04/22/2020 10:09 AM [facility] Chloride 103 98 - 107 mmol/L 04/22/2020 10:09 AM [facility] CO2 27 23 - 31 mmol/L 04/22/2020 10:09 AM [facility] Calcium 7.1(L) 8.4 - 10.4 mg/dL 04/22/2020 10:09 AM [facility] Anion Gap 5(L) 8 - 16 mmol/L 04/22/2020 10:09 AM [facility] BUN 13 7 - 18.7 mg/dL 04/22/2020 10:09 AM CDT [facility] Creatinine 0.66 0.57 - 1.11 mg/dL 04/22/2020 10:09 AM CDT [facility] Alkaline Phosphatase 95 40 - 150 U/L 04/22/2020 10:09 AM CDT [facility] ALT 26 0 - 61 U/L 04/22/2020 10:09 AM CDT [facility] AST 32 5 - 34 U/L 04/22/2020 10:09 AM CDT [facility] Protein Total 5.1(L) 6.4 - 8.3 gm/dL 04/22/2020 10:09 AM CDT [facility] Albumin 2.0(L) 3.5 - 5.2 gm/dL 04/22/2020 10:09 AM CDT [facility] Bilirubin Total 0.5 0.2 - 1.0 mg/dL 04/22/2020 10:09 AM [facility] eGFR by MDRD >60 >60 mL/min/1.7 3m2 04/22/2020 10:09 AM T [facility] eGFR by MDRD >60 >60 mL/min/1.7 3m2 04/22/2020 10:09 AM T [facility] Blood BLOOD SPECIMEN / Unknown Lab Venipuncture / Unknown 04/22/2020 9:28 AM CDT 04/22/2020 9:35 AM CDT Shira Gracia MD LAB - CHEMISTRY ORD ERABLES [facility] [address] [place], [place] [id number] * (ABNORMAL) CBC W AUTO DIFFERENTIAL (04/22/2020 9:28 AM CDT) WBC 13.3(H) 4.4 - 10.7 x10E9/L 04/22/2020 10:01 AM CDT [facility] WBC Corrected 04/22/2020 10:01 AM CDT [facility] RBC 2.77(L) 3.80 - 5.20 x10E12/L 04/22/2020 10:01 AM CDT [facility] Hemoglobin 8.0(L) 12.0 - 15.6 gm/dL 04/22/2020 10:01 AM [facility] Hematocrit 24.6(L) 35.9 - 45.5 % 04/22/2020 10:01 AM [facility] [place] MCV 88.8 80.7 - 98.3 fl 04/22/2020 10:01 AM [facility] [place] MCH 28.9 26.7 - 34.0 pg 04/22/2020 10:01 AM [facility] MCHC 32.5 30.8 - 35.9 gm/dL 04/22/2020 10:01 AM [facility] Platelet Count 219 153 - 416 x10E9/L 04/22/2020 10:01 AM [facility] [place] RDW-CV 19.5(H) 12.1 - 14.9 % 04/22/2020 10:01 AM [facility] MPV 10.8 9.4 - 12.9 fl 04/22/2020 10:01 AM [facility] Neutrophils % 77.8(H) 44.0 - 73.0 % 04/22/2020 10:01 AM [facility] Lymphocytes % 13.7(L) 20.0 - 43.0 % 04/22/2020 10:01 AM [facility] Monocytes % 5.2 5.0 - 13.0 % 04/22/2020 10:01 AM [facility] Eosinophils % 0.5 0.0 - 6.0 % 04/22/2020 10:01 AM [facility] Basophils % 0.2 0.0 - 2.0 % 04/22/2020 10:01 AM [facility] Immature Granulocytes 2.6(H) 0 - 1 % 04/22/2020 10:01 AM [facility] Neutrophil Absolute 10.35(H) 2.01 - 7.14 x10E9/L 04/22/2020 10:01 AM [facility] Lymphocytes Absolute 1.82 1.07 - 3.94 x10E9/L 04/22/2020 10:01 AM [facility] Monocytes Absolute 0.69 0.26 - 1.07 x10E9/L 04/22/2020 10:01 AM [facility] Eosinophils Absolute 0.07 0 - 0.47 x10E9/L 04/22/2020 10:01 AM [facility] Basophils Absolute 0.02 0 - 0.08 x10E9/L 04/22/2020 10:01 AM CDT [facility] Immature Granulocytes Absolute 0.35(H) 0.00 - 0.06 x10E9/L 04/22/2020 10:01 AM CDT [facility] nRBC Auto 3 /100 WBC 04/22/2020 10:01 AM CDT [facility] Blood BLOOD SPECIMEN / Unknown Lab Venipuncture / Unknown 04/22/2020 9:28 AM CDT 04/22/2020 9:35 AM CDT Maikel Ring MD LAB - HEMATOLOGY ORDERABLES Performing Organization Address City/[facility]/ZIP Co de Phone Number [facility] [address] [place] [address] * PREPARE FFP UNIT(S), 1 Units (04/21/2020 6:41 AM CDT) Unit Description Thawed Plasma 5D [facility] Unit ABO AB [facility] Unit Rh POS [facility] Product Number [id number] [facility] Unit Donor # [id number] [facility] LAB Unit Status transfused [facility] Product Code [id number] [facility] Blood Type Barcode 8400 [facility] Expiration Date [id number] [facility] Blood Bank BLOOD SPECIMEN / Unknown 04/21/2020 6:41 AM CDT 04/21/2020 6:48 AM CDT Marisa James MD LAB - BLOOD BANK ORD ERABLES Performing Organization Address City/[facility]/ZIP Co de Phone Number [facility] [address] [place], [place] [id number] [place] [address] * (ABNORMAL) COMPREHENSIVE METABOLIC PANEL (04/21/2020 6:41 AM CDT) Glucose 119(H) 70 - 105 mg/dL 04/21/2020 8:02 AM CDT [facility] Sodium 132(L) 136 - 145 mmol/L 04/21/2020 8:02 AM CDT [facility] Potassium 3.0(L) 3.5 - 5.1 mmol/L 04/21/2020 8:02 AM [facility] [place] Chloride 100 98 - 107 mmol/L 04/21/2020 8:02 AM [facility] [place] CO2 26 23 - 31 mmol/L 04/21/2020 8:02 AM [facility] [place] [facility] Calcium 6.8(LL) 8.4 - 10.4 mg/dL 04/21/2020 8:02 AM [facility] [place] [facility] Anion Gap 6(L) 8 - 16 mmol/L 04/21/2020 8:02 AM [facility] [place] [facility] BUN 13 7 - 18.7 mg/dL 04/21/2020 8:02 AM [facility] [place] Creatinine 0.63 0.57 - 1.11 mg/dL 04/21/2020 8:02 AM [facility] [place] [facility] Alkaline Phosphatase 105 40 - 150 U/L 04/21/2020 8:02 AM [facility] [place] [facility] ALT 23 0 - 61 U/L 04/21/2020 8:02 AM [facility] [place] [facility] AST 28 5 - 34 U/L 04/21/2020 8:02 AM [facility] [place] Protein Total 5.9(L) 6.4 - 8.3 gm/dL 04/21/2020 8:02 AM [facility] [place] Albumin 2.1(L) 3.5 - 5.2 gm/dL 04/21/2020 8:02 AM [facility] Bilirubin Total 0.4 0.2 - 1.0 mg/dL 04/21/2020 8:02 AM [facility] [place] [facility] eGFR by MDRD >60 >60 mL/min/1.7 3m2 04/21/2020 8:02 AM [facility] [place] [facility] eGFR by MDRD >60 >60 mL/min/1.7 3m2 04/21/2020 8:02 AM [facility] [place] [facility] Blood BLOOD SPECIMEN / Unknown Lab Venipuncture / Unknown 04/21/2020 6:41 AM CDT 04/21/2020 6:48 AM [facility] Shira Gracia MD LAB - CHEMISTRY ORD ERABLES [facility] [address] [place] [address] * (ABNORMAL) RENAL FUNCTION PANEL (04/21/2020 6:41 AM CDT) Glucose 118(H) 70 - 105 mg/dL 04/21/2020 7:46 AM CDT [facility] Sodium 133(L) 136 - 145 mmol/L 04/21/2020 7:46 AM CDT [facility] Potassium 3.0(L) 3.5 - 5.1 mmol/L 04/21/2020 7:46 AM CDT [facility] Chloride 101 98 - 107 mmol/L 04/21/2020 7:46 AM CDT [facility] CO2 26 23 - 31 mmol/L 04/21/2020 7:46 AM CDT [facility] Calcium 6.9(LL) 8.4 - 10.4 mg/dL 04/21/2020 7:46 AM CDT [facility] Anion Gap 6(L) 8 - 16 mmol/L 04/21/2020 7:46 AM CDT [facility] BUN 13 7 - 18.7 mg/dL 04/21/2020 7:46 AM CDT [facility] Creatinine 0.65 0.57 - 1.11 mg/dL 04/21/2020 7:46 AM CDT [facility] Albumin 2.1(L) 3.5 - 5.2 gm/dL 04/21/2020 7:46 AM CDT [facility] Phosphorus 3.6 2.3 - 4.7 mg/dL 04/21/2020 7:46 AM CDT [facility] eGFR by MDRD >60 >60 mL/min/1.7 3m2 04/21/2020 7:46 AM CDT [facility] eGFR by MDRD >60 >60 mL/min/1.7 3m2 04/21/2020 7:46 AM T [facility] Blood BLOOD SPECIMEN / Unknown Lab Venipuncture / Unknown 04/21/2020 6:41 AM CDT 04/21/2020 6:48 AM CDT Clem Brown MD LAB - CHEMISTRY MIRI GO [facility] Organization Address City/State/ZIP Co de Phone Number [facility] [address] [place] [address] * (ABNORMAL) MAGNESIUM BLOOD (04/21/2020 6:41 AM CDT) Magnesium 4.6(H) 1.6 - 2.6 mg/dL 04/21/2020 7:38 AM CDT [facility] Blood BLOOD SPECIMEN / Unknown Lab Venipuncture / Unknown 04/21/2020 6:41 AM CDT 04/21/2020 6:48 AM CDT Clem Brown MD LAB - CHEMISTRY MIRI GO Performing Organization Address City/[facility]/ZIP Co de Phone Number [facility] [address] [place] [address] * TYPE + SCREEN PANEL (04/21/2020 6:41 AM CDT) ABO Rh A POS 04/21/2020 7:44 AM CDT [facility] Comment:History checked. Antibody Screen NEG 0 7:44 AM CDT [facility] Blood Bank BLOOD SPECIMEN / Unknown Lab Venipuncture / Unknown 04/21/2020 6:41 AM CDT 04/21/2020 6:48 AM CDT Danilo Rodríguez MD LAB - BLOOD BANK RIGOBERTO DOSS Performing Organization Address [facility]/ZIP Co de Phone Number [facility] [address] [place] [address] * HAPTOGLOBIN (04/21/2020 6:41 AM CDT) Haptoglobin 42 30 - 200 mg/dL 04/21/2020 7:38 AM CDT [facility] Blood BLOOD SPECIMEN / Unknown Lab Venipuncture / Unknown 04/21/2020 6:41 AM CDT 04/21/2020 6:48 AM CDT Turner Castillo MD LAB - CHEMISTRY MIRI GO Performing Organization Address City/[facility]/ZIP Co de Phone Number [facility] [address] [place] [address] * (ABNORMAL) LDH BLOOD (04/21/2020 6:41 AM CDT) Pathologist [facility] LDH 449(H) 125 - 220 U/L 04/21/2020 7:38 AM CDT [facility] Blood BLOOD SPECIMEN / Unknown Lab Venipuncture / Unknown 04/21/2020 6:41 AM CDT 04/21/2020 6:48 AM CDT Turner Castillo MD LAB - CHEMISTRY MIRI GO [facility] [address] [place] [address] * (ABNORMAL) DIFFERENTIAL MANUAL (04/21/2020 4:45 AM CDT) [facility] WBC Auto 22.9 x10E9/L 04/21/2020 7:18 AM CDT [facility] WBC Corrected 04/21/2020 7:18 AM CDT [facility] nRBC 3 /100 WBC 04/21/2020 7:18 AM [facility] Neutrophil % Manual 89(H) 44 - 73 % 04/21/2020 7:18 AM CDT [facility] Lymphocytes % Manual 5(L) 20 - 43 % 04/21/2020 7:18 AM CDT [facility] Monocytes % Manual 3(L) 5 - 13 % 2019 7:18 AM CDT [facility] Band % Manual 2 0 - 11 % 04/21/2020 7:18 AM CDT [facility] [place] Manual 1(H) <=0 % 04/21/2020 7:18 AM [facility] Cells Counted 100 # cells 04/21/2020 7:18 AM CDT [facility] WBC Morph Normal 04/21/2020 7:18 AM CDT [facility] Anisocytosis 2+(A) None 04/21/2020 7:18 AM CDT [facility] Polychromasia 1+(A) None 04/21/2020 7:18 AM CDT [facility] Platelet Estimation Normal 04/21/2020 7:18 AM CDT [facility] Blood BLOOD SPECIMEN / Unknown Lab Venipuncture / Unknown 04/21/2020 4:45 AM CDT 04/21/2020 5:51 AM CDT Maikel Ring MD LAB - HEMATOLOGY ORDERABLES Performing Organization Address City/[facility] de Phone Number [facility] [address] [place], [place] [id number] * (ABNORMAL) CBC W AUTO DIFFERENTIAL (04/21/2020 4:45 AM CDT) WBC 22.9(H) 4.4 - 10.7 x10E9/L 04/21/2020 6:14 AM CDT [facility] WBC Corrected 04/21/2020 6:14 AM CDT [facility] RBC 3.02(L) 3.80 - 5.20 x10E12/L 04/21/2020 6:14 AM CDT [facility] Hemoglobin 8.6(L) 12.0 - 15.6 gm/dL 04/21/2020 6:14 AM CDT [facility] Hematocrit 26.0(L) 35.9 - 45.5 % 04/21/2020 6:14 AM CDT [facility] MCV 86.1 80.7 - 98.3 fl 04/21/2020 6:14 AM CDT [facility] MCH 28.5 26.7 - 34.0 pg 04/21/2020 6:14 AM CDT [facility] MCHC 33.1 30.8 - 35.9 gm/dL 04/21/2020 6:14 AM CDT [facility] Platelet Count 211 153 - 416 x10E9/L 04/21/2020 6:14 AM CDT [facility] RDW-CV 19.5(H) 12.1 - 14.9 % 04/21/2020 6:14 AM CDT [facility] MPV 12.0 9.4 - 12.9 fl 04/21/2020 6:14 AM CDT [facility] nRBC Auto 3 /100 WBC 04/21/2020 6:14 AM CDT [facility] Blood BLOOD SPECIMEN / Unknown Lab Venipuncture / Unknown 04/21/2020 4:45 AM CDT 04/21/2020 5:51 AM CDT Maikel Ring MD LAB - HEMATOLOGY ORDERABLES Performing Organization Address City/State/[facility] de Phone Number [facility] [address] [place] [id number] * (ABNORMAL) DIFFERENTIAL MANUAL (04/20/2020 7:46 PM CDT) WBC Auto 21.9 x10E9/L 04/20/2020 9:10 PM CDT [facility] WBC Corrected 04/20/2020 9:10 PM CDT [facility] nRBC 5 /100 WBC 04/20/2020 9:10 PM CDT [facility] Neutrophil % Manual 97(H) 44 - 73 % 04/20/2020 9:10 PM CDT [facility] Lymphocytes % Manual 1(L) 20 - 43 % 04/20/2020 9:10 PM CDT [facility] Monocytes % Manual 1(L) 5 - 13 % 04/20/2020 9:10 PM CDT [facility] Band % Manual 1 0 - 11 % 04/20/2020 9:10 PM CDT [facility] Cells Counted 100 # cells 04/20/2020 9:10 PM CDT [facility] RBC Morphology Normal 04/20/2020 9:10 PM CDT [facility] WBC Morph Normal 04/20/2020 9:10 PM CDT [facility] Platelet Estimation Normal 04/20/2020 9:10 PM CDT [facility] Blood BLOOD SPECIMEN / Unknown Lab Venipuncture / Unknown 04/20/2020 7:46 PM CDT 04/20/2020 7:51 PM CDT Turner Castillo MD LAB - HEMATOLOGY ORD ERABLES Performing Organization Address [facility] Co de Phone Number [facility] [address] [place] [id number] * (ABNORMAL) CBC W AUTO DIFFERENTIAL (04/20/2020 7:46 PM CDT) WBC 21.9(H) 4.4 - 10.7 x10E9/L 04/20/2020 7:58 PM CDT [facility] WBC Corrected 04/20/2020 7:58 PM CDT [facility] RBC 2.93(L) 3.80 - 5.20 x10E12/L 04/20/2020 7:58 PM CDT [facility] Hemoglobin 8.2(L) 12.0 - 15.6 gm/dL 04/20/2020 7:58 PM CDT [facility] Hematocrit 24.5(L) 35.9 - 45.5 % 04/20/2020 7:58 PM CDT [facility] MCV 83.6 80.7 - 98.3 fl 04/20/2020 7:58 PM CDT [facility] MCH 28.0 26.7 - 34.0 pg 04/20/2020 7:58 PM CDT [facility] MCHC 33.5 30.8 - 35.9 gm/dL 04/20/2020 7:58 PM CDT [facility] Platelet Count 200 153 - 416 x10E9/L 04/20/2020 7:58 PM CDT [facility] RDW-CV 18.6(H) 12.1 - 14.9 % 04/20/2020 7:58 PM CDT [facility] MPV 11.1 9.4 - 12.9 fl 04/20/2020 7:58 PM CDT [facility] nRBC Auto 3 /100 WBC 04/20/2020 7:58 PM CDT [facility] Blood BLOOD SPECIMEN / Unknown Lab Venipuncture / Unknown 04/20/2020 7:46 PM CDT 04/20/2020 7:51 PM CDT Turner Castillo MD LAB - HEMATOLOGY ORD ERABLES Performing Organization Address City/State/[facility] Co de Phone Number [facility] [address] [place], [place] [id number] * XR CHEST 2VW (04/20/2020 5:11 PM [...] Magy Sunshine on 04/20/2020 at 5:21 PM Shria Gracia MD DIAGNOSTIC IMAGING ORDERABLES * (ABNORMAL) CBC W AUTO DIFFERENTIAL (04/20/2020 2:08 PM CDT) WBC 21.4(H) 4.4 - 10.7 x10E9/L 04/20/2020 2:16 PM CDT [facility] WBC Corrected 04/20/2020 2:16 PM CDT [facility] RBC 2.80(L) 3.80 - 5.20 x10E12/L 04/20/2020 2:16 PM CDT [facility] Hemoglobin 7.9(L) 12.0 - 15.6 gm/dL 04/20/2020 2:16 PM CDT [facility] Hematocrit 23.5(L) 35.9 - 45.5 % 04/20/2020 2:16 PM CDT [facility] MCV 83.9 80.7 - 98.3 fl 04/20/2020 2:16 PM CDT [facility] MCH 28.2 26.7 - 34.0 pg 04/20/2020 2:16 PM CDT [facility] MCHC 33.6 30.8 - 35.9 gm/dL 04/20/2020 2:16 PM CDT [facility] Platelet Count 166 153 - 416 x10E9/L 04/20/2020 2:16 PM CDT [facility] RDW-CV 18.7(H) 12.1 - 14.9 % 04/20/2020 2:16 PM CDT [facility] MPV 11.2 9.4 - 12.9 fl 04/20/2020 2:16 PM CDT [facility] Neutrophils % 87.7(H) 44.0 - 73.0 % 04/20/2020 2:16 PM CDT [facility] Lymphocytes % 4.8(L) 20.0 - 43.0 % 04/20/2020 2:16 PM CDT [facility] Monocytes % 3.0(L) 5.0 - 13.0 % 04/20/2020 2:16 PM CDT [facility] Eosinophils % 0.0 0.0 - 6.0 % 04/20/2020 2:16 PM CDT [facility] Basophils % 0.2 0.0 - 2.0 % 04/20/2020 2:16 PM CDT [facility] Immature Granulocytes 4.3(H) 0 - 1 % 04/20/2020 2:16 PM CDT [facility] Neutrophil Absolute 18.77(H) 2.01 - 7.14 x10E9/L 04/20/2020 2:16 PM CDT [facility] Lymphocytes Absolute 1.02(L) 1.07 - 3.94 x10E9/L 04/20/2020 2:16 PM CDT [facility] Monocytes Absolute 0.64 0.26 - 1.07 x10E9/L 04/20/2020 2:16 PM CDT [facility] Eosinophils Absolute 0.01 0 - 0.47 x10E9/L 04/20/2020 2:16 PM CDT [facility] Basophils Absolute 0.04 0 - 0.08 x10E9/L 04/20/2020 2:16 PM CDT [facility] Immature Granulocytes Absolute 0.92(H) 0.00 - 0.06 x10E9/L 04/20/2020 2:16 PM CDT [facility] nRBC Auto 3 /100 WBC 04/20/2020 2:16 PM CDT [facility] Blood BLOOD SPECIMEN / Unknown Lab Venipuncture / Unknown 04/20/2020 2:08 PM CDT 04/20/2020 2:12 PM CDT Turner Castillo MD LAB - HEMATOLOGY ORD ERABLES [facility] [address] [place] [address] * AST BLOOD (04/20/2020 10:42 AM CDT) AST 27 5 - 34 U/L 04/20/2020 2:26 PM CDT [facility] Blood BLOOD SPECIMEN / Unknown Lab Venipuncture / Unknown 04/20/2020 10:42 AM CDT 04/20/2020 10:42 AM CDT Ron Quinn MD LAB - CHEMISTRY MIRI GO Performing Organization Address City/[facility]/ZIP Co de Phone Number [facility] [address] [place] [address] * ALT (04/20/2020 10:42 AM CDT) ALT 19 0 - 61 U/L 04/20/2020 2:26 PM CDT [facility] Blood BLOOD SPECIMEN / Unknown Lab Venipuncture / Unknown 04/20/2020 10:42 AM CDT 04/20/2020 10:42 AM CDT Ron Quinn MD LAB - CHEMISTRY MIRI GO Performing Organization Address City/[facility]/ZIP Co de Phone Number [facility] [address] [place] [address] * (ABNORMAL) RENAL FUNCTION PANEL (04/20/2020 10:42 AM CDT) Glucose 103 70 - 105 mg/dL 04/20/2020 11:08 AM CDT [facility] Sodium 135(L) 136 - 145 mmol/L 04/20/2020 11:08 AM CDT [facility] Potassium 4.0 3.5 - 5.1 mmol/L 04/20/2020 11:08 AM CDT [facility] Chloride 108(H) 98 - 107 mmol/L 04/20/2020 11:08 AM CDT [facility] CO2 24 23 - 31 mmol/L 04/20/2020 11:08 AM CDT [facility] Calcium 7.4(L) 8.4 - 10.4 mg/dL 04/20/2020 11:08 AM CDT [facility] Anion Gap 3(L) 8 - 16 mmol/L 04/20/2020 11:08 AM CDT [facility] BUN 18 7 - 18.7 mg/dL 04/20/2020 11:08 AM CDT [facility] Creatinine 0.65 0.57 - 1.11 mg/dL 04/20/2020 11:08 AM CDT [facility] Albumin 1.9(L) 3.5 - 5.2 gm/dL 04/20/2020 11:08 AM CDT [facility] Phosphorus 3.0 2.3 - 4.7 mg/dL 04/20/2020 11:08 AM CDT [facility] eGFR by MDRD >60 >60 mL/min/1.7 3m2 04/20/2020 11:08 AM CDT [facility] eGFR by MDRD >60 >60 mL/min/1.7 3m2 04/20/2020 11:08 AM CDT [facility] Blood BLOOD SPECIMEN / Unknown Lab Venipuncture / Unknown 04/20/2020 10:42 AM CDT 04/20/2020 10:42 AM CDT Clem Brown MD LAB - CHEMISTRY MIRI GO Performing Organization Address City/[facility]/ZIP Co de Phone Number [facility] [address] [place], [place] [id number] * (ABNORMAL) MAGNESIUM BLOOD (04/20/2020 10:42 AM CDT) Magnesium 1.5(L) 1.6 - 2.6 mg/dL 04/20/2020 11:06 AM CDT [facility] Blood BLOOD SPECIMEN / Unknown Lab Venipuncture / Unknown 04/20/2020 10:42 AM CDT 04/20/2020 10:42 AM CDT Clem Brown MD LAB - CHEMISTRY MIRI GO [facility] [address] [place] [id number] * (ABNORMAL) CBC W AUTO DIFFERENTIAL (04/20/2020 10:42 AM CDT) WBC 22.0(H) 4.4 - 10.7 x10E9/L 04/20/2020 10:51 AM CDT [facility] WBC Corrected 04/20/2020 10:51 AM CDT [facility] RBC 2.67(L) 3.80 - 5.20 x10E12/L 04/20/2020 10:51 AM CDT [facility] Hemoglobin 7.5(L) 12.0 - 15.6 gm/dL 04/20/2020 10:51 AM CDT [facility] Hematocrit 22.5(L) 35.9 - 45.5 % 04/20/2020 10:51 AM CDT [facility] MCV 84.3 80.7 - 98.3 fl 04/20/2020 10:51 AM CDT [facility] MCH 28.1 26.7 - 34.0 pg 04/20/2020 10:51 AM CDT [facility] MCHC 33.3 30.8 - 35.9 gm/dL 04/20/2020 10:51 AM CDT [facility] Platelet Count 165 153 - 416 x10E9/L 04/20/2020 10:51 AM CDT [facility] RDW-CV 18.8(H) 12.1 - 14.9 % 04/20/2020 10:51 AM CDT [facility] MPV 12.1 9.4 - 12.9 fl 04/20/2020 10:51 AM CDT [facility] Neutrophils % 83.5(H) 44.0 - 73.0 % 04/20/2020 10:51 AM CDT [facility] Lymphocytes % 6.9(L) 20.0 - 43.0 % 04/20/2020 10:51 AM CDT [facility] Monocytes % 6.2 5.0 - 13.0 % 04/20/2020 10:51 AM CDT [facility] Eosinophils % 0.0 0.0 - 6.0 % 04/20/2020 10:51 AM CDT [facility] Basophils % 0.1 0.0 - 2.0 % 04/20/2020 10:51 AM CDT [facility] Immature Granulocytes 3.3(H) 0 - 1 % 04/20/2020 10:51 AM CDT [facility] Neutrophil Absolute 18.36(H) 2.01 - 7.14 x10E9/L 04/20/2020 10:51 AM CDT [facility] Lymphocytes Absolute 1.51 1.07 - 3.94 x10E9/L 04/20/2020 10:51 AM CDT [facility] Monocytes Absolute 1.36(H) 0.26 - 1.07 x10E9/L 04/20/2020 10:51 AM CDT [facility] Eosinophils Absolute 0.01 0 - 0.47 x10E9/L 04/20/2020 10:51 AM CDT [facility] Basophils Absolute 0.03 0 - 0.08 x10E9/L 04/20/2020 10:51 AM CDT [facility] Immature Granulocytes Absolute 0.72(H) 0.00 - 0.06 x10E9/L 04/20/2020 10:51 AM CDT [facility] nRBC Auto 2 /100 WBC 04/20/2020 10:51 AM CDT [facility] Blood BLOOD SPECIMEN / Unknown Lab Venipuncture / Unknown 04/20/2020 10:42 AM CDT 04/20/2020 10:41 AM CDT Maikel Ring MD LAB - HEMATOLOGY ORDERABLES [facility] [address] [place] [address] * HAPTOGLOBIN (04/20/2020 10:42 AM CDT) Haptoglobin 65 30 - 200 mg/dL 04/20/2020 11:06 AM CDT [facility] Blood BLOOD SPECIMEN / Unknown Lab Venipuncture / Unknown 04/20/2020 10:42 AM CDT 04/20/2020 10:42 AM CDT Turner Castillo MD LAB - CHEMISTRY ORDHéctor GO [facility] [address] [place] [address] * (ABNORMAL) LDH BLOOD (04/20/2020 10:42 AM CDT) LDH 358(H) 125 - 220 U/L 04/20/2020 11:06 AM CDT [facility] Blood BLOOD SPECIMEN / Unknown Lab Venipuncture / Unknown 04/20/2020 10:42 AM CDT 04/20/2020 10:42 AM CDT Turner Castillo MD LAB - CHEMISTRY MIRI GO Performing Organization Address [facility] Co de Phone Number [facility] [address] [place] [id number] * PTT (04/20/2020 10:41 AM CDT) PTT 30.7 23.0 - 38.4 sec 04/20/2020 11:00 AM CDT [facility] Blood BLOOD SPECIMEN / Unknown Lab Venipuncture / Unknown 04/20/2020 10:41 AM CDT 04/20/2020 10:41 AM CDT Narrative [facility] - 04/20/2020 11:00 AM CDT Heparin Therapeutic Range for PTT: ??71.0 - 109.0 seconds. Turner Castillo MD LAB - COAGULATION OR DERABLES Performing Organization Address [facility] Co de Phone Number [facility] [address] [place] [address] * PT-INR (04/20/2020 10:41 AM CDT) PT 12.3 12.1 - 14.8 sec 04/20/2020 10:59 AM CDT [facility] INR 1.0 0.9 - 1.1 04/20/2020 10:59 AM CDT [facility] Blood BLOOD SPECIMEN / Unknown Lab Venipuncture / Unknown 04/20/2020 10:41 AM CDT 04/20/2020 10:41 AM CDT Narrative [facility] - 04/20/2020 10:59 AM CDT Conventional Warfarin Anticoagulant Therapy: INR Reference Range: ??2.0-3.0 Intensive Warfarin Anticoagulant Therapy: INR Reference Range: ? 2.5-3.5 Turner Castillo MD LAB - COAGULATION OR DERABLES [facility] [address] [place] [address] * TRANSFUSE RED BLOOD CELL LEUKOREDUCED UNIT(S) (04/20/2020 2:36 AM CDT) Shayna Chirinos MD NURSING - BLOOD P [facility] TRANSFUSION * TRANSFUSE RED BLOOD CELL LEUKOREDUCED UNIT(S), 1 Units (04/20/2020 2:36 AM CDT) Shayna Chirinos MD NURSING - BLOOD P [facility]RI[facility] TRANSFUSION * (ABNORMAL) CBC W AUTO DIFFERENTIAL (04/19/2020 9:38 PM CDT) WBC 22.0(H) 4.4 - 10.7 x10E9/L 04/19/2020 10:14 PM CDT [facility] WBC Corrected 04/19/2020 10:14 PM CDT [facility] RBC 2.18(L) 3.80 - 5.20 x10E12/L 04/19/2020 10:14 PM CDT [facility] Hemoglobin 6.4(L) 12.0 - 15.6 gm/dL 04/19/2020 10:14 PM CDT [facility] Hematocrit 18.4(LL) 35.9 - 45.5 % 04/19/2020 10:14 PM CDT [facility] MCV 84.4 80.7 - 98.3 fl 04/19/2020 10:14 PM CDT [facility] MCH 29.4 26.7 - 34.0 pg 04/19/2020 10:14 PM CDT [facility] MCHC 34.8 30.8 - 35.9 gm/dL 04/19/2020 10:14 PM CDT [facility] Platelet Count 136(L) 153 - 416 x10E9/L 04/19/2020 10:14 PM CDT [facility] RDW-CV 19.6(H) 12.1 - 14.9 % 04/19/2020 10:14 PM CDT [facility] MPV 12.9 9.4 - 12.9 fl 04/19/2020 10:14 PM CDT [facility] Neutrophils % 89.3(H) 44.0 - 73.0 % 04/19/2020 10:14 PM CDT [facility] Lymphocytes % 4.0(L) 20.0 - 43.0 % 04/19/2020 10:14 PM CDT [facility] Monocytes % 3.0(L) 5.0 - 13.0 % 04/19/2020 10:14 PM CDT [facility] Eosinophils % 0.8 0.0 - 6.0 % 04/19/2020 10:14 PM CDT [facility] Basophils % 0.1 0.0 - 2.0 % 04/19/2020 10:14 PM CDT [facility] Immature Granulocytes 2.8(H) 0 - 1 % 04/19/2020 10:14 PM CDT [facility] Neutrophil Absolute 19.62(H) 2.01 - 7.14 x10E9/L 04/19/2020 10:14 PM CDT [facility] Lymphocytes Absolute 0.87(L) 1.07 - 3.94 x10E9/L 04/19/2020 10:14 PM CDT [facility] Monocytes Absolute 0.66 0.26 - 1.07 x10E9/L 04/19/2020 10:14 PM CDT [facility] Eosinophils Absolute 0.17 0 - 0.47 x10E9/L 04/19/2020 10:14 PM CDT [facility] Basophils Absolute 0.03 0 - 0.08 x10E9/L 04/19/2020 10:14 PM CDT [facility] Immature Granulocytes Absolute 0.61(H) 0.00 - 0.06 x10E9/L 04/19/2020 10:14 PM CDT [facility] nRBC Auto 1 /100 WBC 04/19/2020 10:14 PM CDT [facility] Blood BLOOD SPECIMEN / Unknown Lab Venipuncture / Unknown 04/19/2020 9:38 PM CDT 04/19/2020 10:03 PM CDT Turner Castillo MD LAB - HEMATOLOGY ORD ERABLES [facility] [address] [place] [address] * (ABNORMAL) CBC W AUTO DIFFERENTIAL (04/19/2020 1:44 PM CDT) WBC 19.8(H) 4.4 - 10.7 x10E9/L 04/19/2020 1:48 PM CDT [facility] WBC Corrected 04/19/2020 1:48 PM CDT [facility] RBC 2.59(L) 3.80 - 5.20 x10E12/L 04/19/2020 1:48 PM CDT [facility] Hemoglobin 7.4(L) 12.0 - 15.6 gm/dL 04/19/2020 1:48 PM CDT [facility] Hematocrit 21.5(L) 35.9 - 45.5 % 04/19/2020 1:48 PM CDT [facility] MCV 83.0 80.7 - 98.3 fl 04/19/2020 1:48 PM CDT [facility] MCH 28.6 26.7 - 34.0 pg 04/19/2020 1:48 PM CDT [facility] MCHC 34.4 30.8 - 35.9 gm/dL 04/19/2020 1:48 PM CDT [facility] Platelet Count 146(L) 153 - 416 x10E9/L 04/19/2020 1:48 PM CDT [facility] RDW-CV 19.3(H) 12.1 - 14.9 % 04/19/2020 1:48 PM CDT [facility] MPV 11.8 9.4 - 12.9 fl 04/19/2020 1:48 PM CDT [facility] Neutrophils % 90.8(H) 44.0 - 73.0 % 04/19/2020 1:48 PM CDT [facility] Lymphocytes % 4.6(L) 20.0 - 43.0 % 04/19/2020 1:48 PM CDT [facility] Monocytes % 2.3(L) 5.0 - 13.0 % 04/19/2020 1:48 PM CDT [facility] Eosinophils % 0.0 0.0 - 6.0 % 04/19/2020 1:48 PM CDT [facility] Basophils % 0.2 0.0 - 2.0 % 04/19/2020 1:48 PM CDT [facility] Immature Granulocytes 2.1(H) 0 - 1 % 04/19/2020 1:48 PM CDT [facility] Neutrophil Absolute 17.95(H) 2.01 - 7.14 x10E9/L 04/19/2020 1:48 PM CDT [facility] Lymphocytes Absolute 0.91(L) 1.07 - 3.94 x10E9/L 04/19/2020 1:48 PM CDT [facility] Monocytes Absolute 0.46 0.26 - 1.07 x10E9/L 04/19/2020 1:48 PM CDT [facility] Eosinophils Absolute 0.00 0 - 0.47 x10E9/L 04/19/2020 1:48 PM CDT [facility] Basophils Absolute 0.03 0 - 0.08 x10E9/L 04/19/2020 1:48 PM CDT [facility] Immature Granulocytes Absolute 0.41(H) 0.00 - 0.06 x10E9/L 04/19/2020 1:48 PM CDT [facility] nRBC Auto 100 WBC 04/19/2020 1:48 PM CDT [facility] Blood BLOOD SPECIMEN / Unknown Venipuncture / Unknown 04/19/2020 1:44 PM CDT 04/19/2020 1:43 PM CDT Turner Castillo MD LAB - HEMATOLOGY ORD ERABLES [facility] [address] [place], [place] [id number] * (ABNORMAL) GLUCOSE - POINT OF CARE (04/19/2020 9:02 AM CDT) [facility] Glucose WB/POC 122(H) 70 - 106 mg/dL 04/19/2020 11:57 PM CDT [facility] Specimen Type Arterial/C apillary 04/19/2020 11:57 PM CDT [facility] Blood BLOOD SPECIMEN / Unknown 04/19/2020 9:02 AM CDT 04/19/2020 11:57 PM CDT Phuong Frazier MD LAB - POINT OF CARE ORDERABLES [facility] [address] [place], [place] [id number] * (ABNORMAL) RENAL FUNCTION PANEL (04/19/2020 3:51 AM CDT) Glucose 136(H) 70 - 105 mg/dL 04/19/2020 4:40 AM CDT [facility] Sodium 137 136 - 145 mmol/L 04/19/2020 4:40 AM CDT [facility] Potassium 4.2 3.5 - 5.1 mmol/L 04/19/2020 4:40 AM CDT [facility] Chloride 112(H) 98 - 107 mmol/L 04/19/2020 4:40 AM CDT [facility] CO2 19(L) 23 - 31 mmol/L 04/19/2020 4:40 AM CDT [facility] Calcium 7.0(LL) 8.4 - 10.4 mg/dL 04/19/2020 4:40 AM CDT [facility] Anion Gap 6(L) 8 - 16 mmol/L 04/19/2020 4:40 AM CDT [facility] BUN 23(H) 7 - 18.7 mg/dL 04/19/2020 4:40 AM CDT [facility] Creatinine 0.84 0.57 - 1.11 mg/dL 04/19/2020 4:40 AM CDT [facility] Albumin 1.7(L) 3.5 - 5.2 gm/dL 04/19/2020 4:40 AM CDT [facility] Phosphorus 4.0 2.3 - 4.7 mg/dL 04/19/2020 4:40 AM CDT [facility] eGFR by MDRD >60 >60 mL/min/1.7 3m2 04/19/2020 4:40 AM CDT [facility] eGFR by MDRD >60 >60 mL/min/1.7 3m2 04/19/2020 4:40 AM CDT [facility] Blood BLOOD SPECIMEN / Unknown Venipuncture / Unknown 04/19/2020 3:51 AM CDT 04/19/2020 4:05 AM CDT Clem Brown MD LAB - CHEMISTRY MIRI GO [facility] Organization Address City/State/ZIP Co de Phone Number [facility] [address] [place] [address] * (ABNORMAL) MAGNESIUM BLOOD (04/19/2020 3:51 AM CDT) Magnesium 1.4(L) 1.6 - 2.6 mg/dL 04/19/2020 4:32 AM CDT [facility] Blood BLOOD SPECIMEN / Unknown Venipuncture / Unknown 04/19/2020 3:51 AM CDT 04/19/2020 4:05 AM CDT Clem Brown MD LAB - CHEMISTRY MIRI GO Performing Organization Address [facility]/ZIP Co de Phone Number [facility] [address] [place], [place] [phone] * LACTIC ACID BLOOD (04/19/2020 3:51 AM CDT) Lactic Acid 1.2 0.5 - 2.2 mmol/L 04/19/2020 4:27 AM CDT [facility] Blood BLOOD SPECIMEN / Unknown Venipuncture / Unknown 04/19/2020 3:51 AM CDT 04/19/2020 4:05 AM CDT Maikel Ring MD LAB - CHEMISTRY O RDERABLES Performing Organization Address [facility] Co de Phone Number [facility] [address] [place] [address] * (ABNORMAL) CBC W AUTO DIFFERENTIAL (04/19/2020 3:51 AM CDT) WBC 19.6(H) 4.4 - 10.7 x10E9/L 04/19/2020 4:19 AM CDT [facility] WBC Corrected 04/19/2020 4:19 AM CDT [facility] RBC 2.70(L) 3.80 - 5.20 x10E12/L 04/19/2020 4:19 AM CDT [facility] Hemoglobin 7.6(L) 12.0 - 15.6 gm/dL 04/19/2020 4:19 AM CDT [facility] Hematocrit 21.7(L) 35.9 - 45.5 % 04/19/2020 4:19 AM CDT [facility] MCV 80.4(L) 80.7 - 98.3 fl 04/19/2020 4:19 AM CDT [facility] MCH 28.1 26.7 - 34.0 pg 04/19/2020 4:19 AM CDT [facility] MCHC 35.0 30.8 - 35.9 gm/dL 04/19/2020 4:19 AM [facility] Platelet Count 124(L) 153 - 416 x10E9/L 04/19/2020 4:19 AM [facility] RDW-CV 18.2(H) 12.1 - 14.9 % 04/19/2020 4:19 AM [facility] MPV 12.5 9.4 - 12.9 fl 04/19/2020 4:19 AM [facility] Neutrophils % 85.7(H) 44.0 - 73.0 % 04/19/2020 4:19 AM [facility] Lymphocytes % 6.7(L) 20.0 - 43.0 % 04/19/2020 4:19 AM [facility] Monocytes % 6.7 5.0 - 13.0 % 04/19/2020 4:19 AM [facility] Eosinophils % 0.0 0.0 - 6.0 % 04/19/2020 4:19 AM [facility] Basophils % 0.1 0.0 - 2.0 % 04/19/2020 4:19 AM [facility] Immature Granulocytes 0.8 0 - 1 % 04/19/2020 4:19 AM [facility] Neutrophil Absolute 16.84(H) 2.01 - 7.14 x10E9/L 04/19/2020 4:19 AM [facility] Lymphocytes Absolute 1.32 1.07 - 3.94 x10E9/L 04/19/2020 4:19 AM [facility] Monocytes Absolute 1.31(H) 0.26 - 1.07 x10E9/L 04/19/2020 4:19 AM [facility] Eosinophils Absolute 0.00 0 - 0.47 x10E9/L 04/19/2020 4:19 AM [facility] Basophils Absolute 0.02 0 - 0.08 x10E9/L 04/19/2020 4:19 AM [facility] Immature Granulocytes Absolute 0.15(H) 0.00 - 0.06 x10E9/L 04/19/2020 4:19 AM [facility] nRBC Auto 1 /100 WBC 04/19/2020 4:19 AM CDT [facility] Blood BLOOD SPECIMEN / Unknown Venipuncture / Unknown 04/19/2020 3:51 AM CDT 04/19/2020 4:05 AM CDT Clem Brown MD LAB - HEMATOLOGY ORD ROMARIO Performing Organization Address City/[facility]/ZIP Co de Phone Number [facility] [address] [place] [id number] * (ABNORMAL) HAPTOGLOBIN (04/19/2020 3:51 AM CDT) Haptoglobin 9(L) 30 - 200 mg/dL 04/19/2020 4:36 AM CDT [facility] Blood BLOOD SPECIMEN / Unknown Venipuncture / Unknown 04/19/2020 3:51 AM CDT 04/19/2020 4:05 AM CDT Heraclio Dave MD LAB - CHEMISTRY MIRI GO [facility] [address] [place] [id number] * PT PTT PANEL (04/19/2020 3:50 AM CDT) Pathologist [facility] PT 12.6 12.1 - 14.8 sec 04/19/2020 4:27 AM CDT [facility] INR 1.0 0.9 - 1.1 04/19/2020 4:27 AM CDT [facility] PTT 27.8 23.0 - 38.4 sec 04/19/2020 4:27 AM CDT [facility] Blood BLOOD SPECIMEN / Unknown Venipuncture / Unknown 04/19/2020 3:50 AM CDT 04/19/2020 4:05 AM CDT Narrative [facility] - 04/19/2020 4:27 AM CDT Conventional Warfarin Anticoagulant Therapy: INR Reference Range: ??2.0-3.0 Intensive Warfarin Anticoagulant Therapy: INR Reference Range: ? 2.5-3.5 Heparin Therapeutic Range for PTT: ??71.0 - 109.0 seconds. Clem Brown MD LAB - COAGULATION OR DERABLES Performing Organization Address [facility] Co de Phone Number [facility] [address] [place] [address] * TRANSFUSE RED BLOOD CELL LEUKOREDUCED UNIT(S) (04/19/2020 1:10 AM CDT) Maikel Ring MD NURSING - BLOOD P [facility]RI[facility] TRANSFUSION * TRANSFUSE RED BLOOD CELL LEUKOREDUCED UNIT(S), 1 Units (04/19/2020 1:10 AM CDT) Maikel Ring MD NURSING - BLOOD P [facility]RI[facility] TRANSFUSION * (ABNORMAL) GLUCOSE - POINT OF CARE (04/18/2020 11:42 PM CDT) Pathologist [facility] Glucose WB/POC 127(H) 70 - 106 mg/dL 04/18/2020 11:52 PM CDT [facility] Specimen Type Arterial/C apillary 04/18/2020 11:52 PM CDT [facility] Blood BLOOD SPECIMEN / Unknown 04/18/2020 11:42 PM CDT 04/18/2020 11:52 PM CDT Phuong Frazier MD LAB - POINT OF CARE ORDERABLES Performing Organization Address [facility] Co de Phone Number [facility] [address] [place] [address] * TRANSFUSE RED BLOOD CELL LEUKOREDUCED UNIT(S) (04/18/2020 11:39 PM CDT) Mayuri Norton MD NURSING - BLOOD PROD TRANSFUSION * TRANSFUSE RED BLOOD CELL LEUKOREDUCED UNIT(S), 2 Units (04/18/2020 11:39 PM CDT) Mayuri Norton MD NURSING - BLOOD PROD TRANSFUSION * PT PTT PANEL (04/18/2020 10:22 PM CDT) Pathologist [facility] PT 13.3 12.1 - 14.8 sec 04/18/2020 10:44 PM CDT [facility] INR 1.1 0.9 - 1.1 04/18/2020 10:44 PM CDT [facility] PTT 29.4 23.0 - 38.4 sec 04/18/2020 10:44 PM CDT [facility] Blood BLOOD SPECIMEN / Unknown Venipuncture / Unknown 04/18/2020 10:22 PM CDT 04/18/2020 10:28 PM CDT [facility] - 04/18/2020 10:44 PM CDT Conventional Warfarin Anticoagulant Therapy: INR Reference Range: ??2.0-3.0 Intensive Warfarin Anticoagulant Therapy: INR Reference Range: ? 2.5-3.5 Heparin Therapeutic Range for PTT: ??71.0 - 109.0 seconds. Clem Brown MD LAB - COAGULATION OR DERABLES [facility] [address] [place] [address] * (ABNORMAL) CBC W AUTO DIFFERENTIAL (04/18/2020 10:22 PM CDT) WBC 19.4(H) 4.4 - 10.7 x10E9/L 04/18/2020 10:48 PM CDT [facility] WBC Corrected 04/18/2020 10:48 PM CDT [facility] RBC 2.34(L) 3.80 - 5.20 x10E12/L 04/18/2020 10:48 PM CDT [facility] Hemoglobin 6.8(L) 12.0 - 15.6 gm/dL 04/18/2020 10:48 PM CDT [facility] Hematocrit 19.0(LL) 35.9 - 45.5 % 04/18/2020 10:48 PM CDT [facility] MCV 81.2 80.7 - 98.3 fl 04/18/2020 10:48 PM CDT [facility] MCH 29.1 26.7 - 34.0 pg 04/18/2020 10:48 PM CDT [facility] MCHC 35.8 30.8 - 35.9 gm/dL 04/18/2020 10:48 PM CDT [facility] Platelet Count 103(L) 153 - 416 x10E9/L 04/18/2020 10:48 PM CDT [facility] RDW-CV 16.9(H) 12.1 - 14.9 % 04/18/2020 10:48 PM CDT [facility] MPV 13.9(H) 9.4 - 12.9 fl 04/18/2020 10:48 PM CDT [facility] Neutrophils % 91.3(H) 44.0 - 73.0 % 04/18/2020 10:48 PM CDT [facility] Lymphocytes % 4.9(L) 20.0 - 43.0 % 04/18/2020 10:48 PM CDT [facility] Monocytes % 3.1(L) 5.0 - 13.0 % 04/18/2020 10:48 PM CDT [facility] Eosinophils % 0.0 0.0 - 6.0 % 04/18/2020 10:48 PM CDT [facility] Basophils % 0.1 0.0 - 2.0 % 04/18/2020 10:48 PM CDT [facility] Immature Granulocytes 0.6 0 - 1 % 04/18/2020 10:48 PM CDT [facility] Neutrophil Absolute 17.74(H) 2.01 - 7.14 x10E9/L 04/18/2020 10:48 PM CDT [facility] Lymphocytes Absolute 0.96(L) 1.07 - 3.94 x10E9/L 04/18/2020 10:48 PM CDT [facility] Monocytes Absolute 0.60 0.26 - 1.07 x10E9/L 04/18/2020 10:48 PM CDT [facility] Eosinophils Absolute 0.00 0 - 0.47 x10E9/L 04/18/2020 10:48 PM CDT [facility] Basophils Absolute 0.02 0 - 0.08 x10E9/L 04/18/2020 10:48 PM CDT [facility] Immature Granulocytes Absolute 0.12(H) 0.00 - 0.06 x10E9/L 04/18/2020 10:48 PM CDT [facility] nRBC Auto 0 /100 WBC 04/18/2020 10:48 PM CDT [facility] Blood BLOOD SPECIMEN / Unknown Venipuncture / Unknown 04/18/2020 10:22 PM CDT 04/18/2020 10:28 PM CDT Clem Brown MD LAB - HEMATOLOGY ORD ERABLES [facility] [address] [place] [address] * (ABNORMAL) GLUCOSE - POINT OF CARE (04/18/2020 8:54 PM CDT) [facility] Glucose WB/POC 128(H) 70 - 106 mg/dL 04/18/2020 11:52 PM CDT [facility] Specimen Type Arterial/C apillary 04/18/2020 11:52 PM CDT [facility] Blood BLOOD SPECIMEN / Unknown 04/18/2020 8:54 PM CDT 04/18/2020 11:52 PM CDT Phuong Frazier MD LAB - POINT OF CARE ORDERABLES Performing Organization Address [facility] Co de Phone Number [facility] [address] [place], [place] [id number] * PT PTT PANEL (04/18/2020 6:09 PM CDT) [facility] PT 13.4 12.1 - 14.8 sec 04/18/2020 6:33 PM CDT [facility] INR 1.1 0.9 - 1.1 04/18/2020 6:33 PM CDT [facility] PTT 32.0 23.0 - 38.4 sec 04/18/2020 6:33 PM CDT [facility] Blood BLOOD SPECIMEN / Unknown Venipuncture / Unknown 04/18/2020 6:09 PM CDT 04/18/2020 6:15 PM CDT Narrative [facility] - 04/18/2020 6:33 PM CDT Conventional Warfarin Anticoagulant Therapy: INR Reference Range: ??2.0-3.0 Intensive Warfarin Anticoagulant Therapy: INR Reference Range: ? 2.5-3.5 Heparin Therapeutic Range for PTT: ??71.0 - 109.0 seconds. Clem Brown MD LAB - COAGULATION OR DERABLES Performing Organization Address [facility] Campus/[facility] Co de Phone Number [facility] [address] [place] [phone] * (ABNORMAL) CBC W AUTO DIFFERENTIAL (04/18/2020 6:09 PM CDT) WBC 17.3(H) 4.4 - 10.7 x10E9/L 04/18/2020 6:28 PM CDT [facility] WBC Corrected 04/18/2020 6:28 PM CDT [facility] RBC 2.67(L) 3.80 - 5.20 x10E12/L 04/18/2020 6:28 PM CDT [facility] Hemoglobin 7.4(L) 12.0 - 15.6 gm/dL 04/18/2020 6:28 PM CDT [facility] Hematocrit 21.7(L) 35.9 - 45.5 % 04/18/2020 6:28 PM CDT [facility] MCV 81.3 80.7 - 98.3 fl 04/18/2020 6:28 PM CDT [facility] MCH 27.7 26.7 - 34.0 pg 04/18/2020 6:28 PM CDT [facility] MCHC 34.1 30.8 - 35.9 gm/dL 04/18/2020 6:28 PM CDT [facility] Platelet Count 73(L) 153 - 416 x10E9/L 04/18/2020 6:28 PM CDT [facility] RDW-CV 16.6(H) 12.1 - 14.9 % 04/18/2020 6:28 PM CDT [facility] Neutrophils % 91.1(H) 44.0 - 73.0 % 04/18/2020 6:28 PM CDT [facility] Lymphocytes % 5.9(L) 20.0 - 43.0 % 04/18/2020 6:28 PM CDT [facility] Monocytes % 2.2(L) 5.0 - 13.0 % 04/18/2020 6:28 PM CDT [facility] Eosinophils % 0.0 0.0 - 6.0 % 04/18/2020 6:28 PM CDT [facility] Basophils % 0.1 0.0 - 2.0 % 04/18/2020 6:28 PM CDT [facility] Immature Granulocytes 0.7 0 - 1 % 04/18/2020 6:28 PM CDT [facility] Neutrophil Absolute 15.79(H) 2.01 - 7.14 x10E9/L 04/18/2020 6:28 PM CDT [facility] Lymphocytes Absolute 1.02(L) 1.07 - 3.94 x10E9/L 04/18/2020 6:28 PM CDT [facility] Monocytes Absolute 0.38 0.26 - 1.07 x10E9/L 04/18/2020 6:28 PM CDT [facility] Eosinophils Absolute 0.00 0 - 0.47 x10E9/L 04/18/2020 6:28 PM CDT [facility] Basophils Absolute 0.02 0 - 0.08 x10E9/L 04/18/2020 6:28 PM CDT [facility] Immature Granulocytes Absolute 0.12(H) 0.00 - 0.06 x10E9/L 04/18/2020 6:28 PM CDT [facility] nRBC Auto 0 /100 WBC 04/18/2020 6:28 PM CDT [facility] Blood BLOOD SPECIMEN / Unknown Venipuncture / Unknown 04/18/2020 6:09 PM CDT 04/18/2020 6:15 PM CDT Clem Brown MD LAB - HEMATOLOGY ORD ERABLES [facility] [address] [place] [id number] * GLUCOSE - POINT OF CARE (04/18/2020 4:49 PM CDT) [facility] Glucose WB/POC 103 70 - 106 mg/dL 04/18/2020 11:52 PM CDT [facility] Specimen Type Arterial/C apillary 04/18/2020 11:52 PM CDT [facility] Blood BLOOD SPECIMEN / Unknown 04/18/2020 4:49 PM CDT 04/18/2020 11:52 PM CDT Phuong Frazier MD LAB - POINT OF CARE ORDERABLES [facility] [address] [place], [place] [phone] * XR ABDOMEN KUB (04/18/2020 4:29 PM [...] to the right of L5. Procedure Note Mayg Sunshine MD - 04/18/2020 Abdomen, one view [...] MD DIAGNOSTIC IMAGING O RDERABLES * (ABNORMAL) DIFFERENTIAL MANUAL (04/18/2020 2:29 PM CDT) WBC Auto 12.4 x10E9/L 04/18/2020 3:46 PM CDT [facility] WBC Corrected 04/18/2020 3:46 PM CDT [facility] nRBC 04/18/2020 3:46 PM CDT [facility] Neutrophil % Manual 86(H) 44 - 73 % 04/18/2020 3:46 PM CDT [facility] Lymphocytes % Manual 5(L) 20 - 43 % 04/18/2020 3:46 PM CDT [facility] Monocytes % Manual 2(L) 5 - 13 % 04/18/2020 3:46 PM CDT [facility] Atypical Lymphocyte % Manual 7(H) <=0 % 04/18/2020 3:46 PM CDT [facility] Cells Counted 100 # cells 04/18/2020 3:46 PM CDT [facility] Platelet Estimation Decreased( A) Normal, Adequate platelets 04/18/2020 3:46 PM CDT [facility] WBC Morph Normal 04/18/2020 3:46 PM CDT [facility] Anisocytosis 1+(A) None 04/18/2020 3:46 PM CDT [facility] Blood BLOOD SPECIMEN / Unknown Venipuncture / Unknown 04/18/2020 2:29 PM CDT 04/18/2020 2:51 PM CDT Clem Brown MD LAB - HEMATOLOGY ORD ERABLES Performing Organization Address City/[facility]/ZIP Co de Phone Number [facility] [address] [place] [phone] * PT PTT PANEL (04/18/2020 2:29 PM CDT) PT 13.8 12.1 - 14.8 sec 04/18/2020 3:16 PM CDT [facility] INR 1.1 0.9 - 1.1 04/18/2020 3:16 PM CDT [facility] PTT 33.5 23.0 - 38.4 sec 04/18/2020 3:16 PM CDT [facility] Blood BLOOD SPECIMEN / Unknown Venipuncture / Unknown 04/18/2020 2:29 PM CDT 04/18/2020 2:51 PM CDT Narrative [facility] - 04/18/2020 3:16 PM CDT Conventional Warfarin Anticoagulant Therapy: INR Reference Range: ??2.0-3.0 Intensive Warfarin Anticoagulant Therapy: INR Reference Range: ? 2.5-3.5 Heparin Therapeutic Range for PTT: ??71.0 - 109.0 seconds. Clem Brown MD LAB - COAGULATION OR DERABLES Performing Organization Address City/[facility]/ZIP Co de Phone Number [facility] [address] [place] [phone] * (ABNORMAL) CBC W AUTO DIFFERENTIAL (04/18/2020 2:29 PM CDT) WBC 12.4(H) 4.4 - 10.7 x10E9/L 04/18/2020 3:13 PM CDT [facility] WBC Corrected 04/18/2020 3:13 PM CDT [facility] RBC 2.65(L) 3.80 - 5.20 x10E12/L 04/18/2020 3:13 PM CDT [facility] Hemoglobin 7.7(L) 12.0 - 15.6 gm/dL 04/18/2020 3:13 PM CDT [facility] Hematocrit 21.9(L) 35.9 - 45.5 % 04/18/2020 3:13 PM CDT [facility] MCV 82.6 80.7 - 98.3 fl 04/18/2020 3:13 PM CDT [facility] MCH 29.1 26.7 - 34.0 pg 04/18/2020 3:13 PM CDT [facility] MCHC 35.2 30.8 - 35.9 gm/dL 04/18/2020 3:13 PM CDT [facility] Platelet Count 48(L) 153 - 416 x10E9/L 04/18/2020 3:13 PM CDT [facility] RDW-CV 16.6(H) 12.1 - 14.9 % 04/18/2020 3:13 PM CDT [facility] nRBC Auto 0 /100 WBC 04/18/2020 3:13 PM CDT [facility] Blood BLOOD SPECIMEN / Unknown Venipuncture / Unknown 04/18/2020 2:29 PM CDT 04/18/2020 2:51 PM CDT Clem Brown MD LAB - HEMATOLOGY ORD ERABLES [facility] [address] [place] [address] * GLUCOSE - POINT OF CARE (04/18/2020 2:28 PM CDT) [facility] Glucose WB/POC 80 70 - 106 mg/dL 04/18/2020 2:43 PM CDT [facility] Specimen Type Arterial/C apillary 04/18/2020 2:43 PM CDT [facility] Blood BLOOD SPECIMEN / Unknown 04/18/2020 2:28 PM CDT 04/18/2020 2:43 PM CDT Phuong Frazier MD LAB - POINT OF CARE ORDERABLES [facility] [address] [place], [place] [phone] * (ABNORMAL) LACTIC ACID BLOOD (04/18/2020 12:25 PM CDT) Lactic Acid 2.8(H) 0.5 - 2.2 mmol/L 04/18/2020 1:30 PM CDT [facility] Blood BLOOD SPECIMEN / Unknown Venipuncture / Unknown 04/18/2020 12:25 PM CDT 04/18/2020 12:52 PM CDT Clem Brown MD LAB - CHEMISTRY ORDE RABMARITN Performing Organization Address [facility] Co de Phone Number [facility] [address] [place] [address] * (ABNORMAL) BLOOD GASES ARTERIAL (04/18/2020 12:21 PM CDT) pH Arterial 7.39 7.35 - 7.45 pH [...] - 16.0 gm/dL 04/18/2020 12:30 PM CDT [facility] Carboxyhemoglobin Arterial 0.3 0.0 - 2.5 % 04/18/2020 12:30 PM CDT [facility] Methemoglobin Arterial 1.2 0.0 - 2.0 % 04/18/2020 12:30 PM CDT [facility] Oxyhemoglobin Arterial 96 % 04/18/2020 12:30 PM CDT [facility] Mode CMV 04/18/2020 12:30 PM CDT [facility] Aamir's Test N/A 04/18/2020 12:30 PM CDT [facility] FI O2 30 % 04/18/2020 12:30 PM CDT [facility] Tidal Volume 450 mL 04/18/2020 12:30 PM CDT [facility] PEEP (cmH2O) 8.0 04/18/2020 12:30 PM CDT [facility] Respiratory Rate 20.0 04/18/20 20 12:30 PM CDT [facility] Sample Site Art Line 04/18/2020 12:30 PM CDT [facility] Sample Type Arterial 04/18/2020 12:30 PM CDT [facility] [employer] Supervisor ID [id number] 04/18/2020 12:30 PM CDT [facility] Blood, arterial ARTERIAL BLOOD SPECIMEN / Unknown 04/18/2020 12:21 PM CDT 04/18/2020 12:21 PM CDT Clem Brown MD LAB - BLOOD GASES OR DERABLES [facility] [address] [place] [address] * TRANSFUSE RED BLOOD CELL LEUKOREDUCED UNIT(S) (04/18/2020 11:52 AM CDT) Mayuri Norton MD NURSING - BLOOD PROD TRANSFUSION * (ABNORMAL) GLUCOSE - POINT OF CARE (04/18/2020 11:17 AM CDT) [facility] Glucose WB/POC 118(H) 70 - 106 mg/dL 04/18/2020 2:43 PM CDT [facility] Specimen Type Arterial/C apillary 04/18/2020 2:43 PM CDT [facility] Blood BLOOD SPECIMEN / Unknown 04/18/2020 11:17 AM CDT 04/18/2020 2:43 PM CDT Phuong Frazier MD LAB - POINT OF CARE ORDERABLES [facility] [address] [place] [phone] * TRANSFUSE FRESH FROZEN PLASMA UNIT(S) (04/18/2020 10:32 AM CDT) Afsaneh Sandoval MD NURSING - BLOOD PROD TRANSFUSION * TRANSFUSE PLATELET PHERESIS UNIT(S) (04/18/2020 10:32 AM CDT) Afsaneh Sandoval MD NURSING - BLOOD PROD TRANSFUSION * TRANSFUSE PLATELET PHERESIS UNIT(S), 2 Units (04/18/2020 10:32 AM CDT) Afsaneh Sandoval MD NURSING - BLOOD PROD TRANSFUSION * TRANSFUSE PLATELET PHERESIS UNIT(S) (04/18/2020 10:31 AM CDT) Afsaneh Sandoval MD NURSING - BLOOD PROD TRANSFUSION * TRANSFUSE PLATELET PHERESIS UNIT(S) (04/18/2020 10:31 AM CDT) Mayuri Norton MD NURSING - BLOOD PROD TRANSFUSION * TRANSFUSE PLATELET PHERESIS UNIT(S), 2 Units (04/18/2020 10:31 AM CDT) Mayuri Norton MD NURSING - BLOOD PROD TRANSFUSION * TRANSFUSE PLATELET PHERESIS UNIT(S) (04/18/2020 10:31 AM CDT) Mayuri Norton MD NURSING - BLOOD PROD TRANSFUSION * (ABNORMAL) BLOOD GASES ARTERIAL (04/18/2020 9:57 AM CDT) [facility] pH Arterial 7.35 7.35 - 7.45 pH 04/18/2020 10:05 AM CDT [facility] Comment:L pCO2 Arterial 33(L) 35 - 45 mm hg 04/18/2020 10:05 AM CDT [facility] Comment:L pO2 Arterial 127(H) 80 - 100 mm hg 04/18/2020 10:05 AM CDT [facility] Comment:H HCO3 Arterial 18(L) 22 - 26 mmol/L 04/18/2020 10:05 AM CDT [facility] Comment:L BE Arterial -7.4(L) -2.0 - 2.0 mmol/L 04/18/2020 10:05 AM CDT [facility] Comment:L O2 Saturation Arterial 98 90 - 100 % 04/18/2020 10:05 AM CDT [facility] Hemoglobin Arterial 6.0(L) 14.0 - 16.0 gm/dL 04/18/2020 10:05 AM CDT [facility] Carboxyhemoglobin Arterial 0.3 0.0 - 2.5 % 04/18/2020 10:05 AM CDT [facility] Methemoglobin Arterial 1.4 0.0 - 2.0 % 04/18/2020 10:05 AM CDT [facility] Oxyhemoglobin Arterial 96 % 04/18/2020 10:05 AM CDT [facility] Mode CMV 04/18/2020 10:05 AM CDT [facility] Aamir's Test N/A 04/18/2020 10:05 AM CDT [facility] FI O2 30 % 04/18/2020 10:05 AM CDT [facility] Tidal Volume 450 mL 04/18/2020 10:05 AM CDT [facility] PEEP (cmH2O) 8.0 04/18/2020 10:05 AM CDT [facility] Respiratory Rate 20.0 04/18/20 20 10:05 AM T [facility] Sample Site Art Line 04/18/2020 10:05 AM CDT [facility] Sample Type Arterial 04/18/2020 10:05 AM CDT [facility] [employer] Supervisor ID [id number] 04/18/2020 10:05 AM T [facility] Blood, arterial ARTERIAL BLOOD SPECIMEN / Unknown 04/18/2020 9:57 AM CDT 04/18/2020 9:57 AM CDT Snehal Crowe MD LAB - BLOO D GASES ORDERABLES [facility] [address] [phone] * (ABNORMAL) LACTIC ACID BLOOD (04/18/2020 9:37 AM CDT) Lactic Acid 4.6(HH) 0.5 - 2.2 mmol/L 04/18/2020 10:12 AM CDT [facility] Blood BLOOD SPECIMEN / Unknown Venipuncture / Unknown 04/18/2020 9:37 AM CDT 04/18/2020 9:41 AM CDT Snehal Crowe MD LAB - CHEM ISTRY ORDERABLES [facility] [address] [place] [address] * (ABNORMAL) CBC W AUTO DIFFERENTIAL (04/18/2020 9:30 AM CDT) WBC 16.9(H) 4.4 - 10.7 x10E9/L 04/18/2020 9:59 AM CDT [facility] WBC Corrected 04/18/2020 9:59 AM CDT [facility] RBC 2.20(L) 3.80 - 5.20 x10E12/L 04/18/2020 9:59 AM CDT [facility] Hemoglobin 6.3(L) 12.0 - 15.6 gm/dL 04/18/2020 9:59 AM CDT [facility] Hematocrit 18.8(LL) 35.9 - 45.5 % 04/18/2020 9:59 AM CDT [facility] MCV 85.5 80.7 - 98.3 fl 04/18/2020 9:59 AM CDT [facility] MCH 28.6 26.7 - 34.0 pg 04/18/2020 9:59 AM CDT [facility] MCHC 33.5 30.8 - 35.9 gm/dL 04/18/2020 9:59 AM CDT [facility] Platelet Count 54(L) 153 - 416 x10E9/L 04/18/2020 9:59 AM CDT [facility] RDW-CV 15.9(H) 12.1 - 14.9 % 04/18/2020 9:59 AM CDT [facility] Neutrophils % 90.6(H) 44.0 - 73.0 % 04/18/2020 9:59 AM CDT [facility] Lymphocytes % 4.3(L) 20.0 - 43.0 % 04/18/2020 9:59 AM CDT [facility] Monocytes % 2.2(L) 5.0 - 13.0 % 04/18/2020 9:59 AM CDT [facility] Eosinophils % 1.2 0.0 - 6.0 % 04/18/2020 9:59 AM CDT [facility] Basophils % 0.2 0.0 - 2.0 % 04/18/2020 9:59 AM CDT [facility] Immature Granulocytes 1.5(H) 0 - 1 % 04/18/2020 9:59 AM CDT [facility] Neutrophil Absolute 15.33(H) 2.01 - 7.14 x10E9/L 04/18/2020 9:59 AM CDT [facility] Lymphocytes Absolute 0.73(L) 1.07 - 3.94 x10E9/L 04/18/2020 9:59 AM CDT [facility] Monocytes Absolute 0.38 0.26 - 1.07 x10E9/L 04/18/2020 9:59 AM CDT [facility] Eosinophils Absolute 0.21 0 - 0.47 x10E9/L 04/18/2020 9:59 AM CDT [facility] Basophils Absolute 0.03 0 - 0.08 x10E9/L 04/18/2020 9:59 AM CDT [facility] Immature Granulocytes Absolute 0.26(H) 0.00 - 0.06 x10E9/L 04/18/2020 9:59 AM CDT [facility] nRBC Auto 0 /100 WBC 04/18/2020 9:59 AM T [facility] Blood BLOOD SPECIMEN / Unknown Venipuncture / Unknown 04/18/2020 9:30 AM CDT 04/18/2020 9:42 AM CDT Clem Brown MD LAB - HEMATOLOGY ORD ERABLES [facility] [address] [place] [address] * IMMUNOGLOBULINS IGG/IGM/IGA PANEL (04/18/2020 9:30 AM CDT) IgA 82 65 - 421 mg/dL 04/18/2020 3:33 PM CDT [facility] IgG 1,629 552-1,631 mg/dL 04/18/2020 3:33 PM CDT [facility] IgM 149 33 - 293 mg/dL 04/18/2020 3:33 PM CDT [facility] Blood BLOOD SPECIMEN / Unknown Venipuncture / Unknown 04/18/2020 9:30 AM CDT 04/18/2020 9:42 AM CDT Heraclio Dave MD LAB - CHEMISTRY MIRI GO Performing Organization Address City/[facility]/ZIP Co de Phone Number [facility] [address] [place] [phone] * (ABNORMAL) LDH BLOOD (04/18/2020 9:30 AM CDT) LDH 337(H) 125 - 220 U/L 04/18/2020 10:14 AM CDT [facility] Blood BLOOD SPECIMEN / Unknown Venipuncture / Unknown 04/18/2020 9:30 AM CDT 04/18/2020 9:42 AM CDT Heraclio Dave MD LAB - CHEMISTRY MIRI GO Performing Organization Address City/[facility]/ZIP Co de Phone Number [facility] [address] [place] [address] * (ABNORMAL) RETIC COUNT (04/18/2020 9:30 AM CDT) Reticulocyte Count 1.77(H) 0.5 - 1.7 % 04/18/2020 9:52 AM CDT [facility] Reticulocyte Absolute 0.0384 0.0041 - 0.0971 x10E6/uL 04/18/2020 9:52 AM CDT [facility] Reticulocyte Immature Fractionated 36.6(H) 0.9 - 14.3 % 04/18/2020 9:52 AM CDT [facility] Hemoglobin Retic 30.2 27.8 - 36.8 pg 04/18/2020 9:52 AM CDT [facility] Blood BLOOD SPECIMEN / Unknown Venipuncture / Unknown 04/18/2020 9:30 AM CDT 04/18/2020 9:42 AM CDT Heraclio Dave MD LAB - HEMATOLOGY ORD ROMARIO Performing Organization Address [facility] Co de Phone Number [facility] [address] [place] [address] * VITAMIN B12 (04/18/2020 9:30 AM CDT) Vitamin B12 220 213 - 816 pg/mL 04/18/2020 10:43 AM CDT [facility] Blood BLOOD SPECIMEN / Unknown Venipuncture / Unknown 04/18/2020 9:30 AM CDT 04/18/2020 9:42 AM CDT Heraclio Dave MD LAB - CHEMISTRY MIRI GO Performing Organization Address [facility] de Phone Number [facility] [address] [place] [address] * REF LAB COMMENT (04/18/2020 9:29 AM CDT) Pathologist [facility] Comment Comment 04/20/2020 7:06 PM CDT [facility] ([facility] Comment: Severe deficiency of [id number] (less than 10% activity) is a relatively specific finding in patients with a clinical diagnosis of either hereditary or acquired thrombotic thrombocytopenic purpura (TTP). Normal to moderately reduced FLYDOG59 activity results do not exclude a diagnosis of TTP. Conditions that could have YZWSPP25 activity greater than 10% include hemolytic uremic syndrome (HUS), atypical hemolytic uremic syndrome (aHUS), and other thrombotic microangiopathies associated with hematopoietic stem cell and solid organ transplantation, liver disease, DIC, sepsis, , or effects of certain medications (eg, clopidogrel, cyclosporine, mitomycin C, quinine). Blood BLOOD SPECIMEN / Unknown Venipuncture / Unknown 04/18/2020 9:29 AM CDT 04/18/2020 9:42 AM CDT Narrative [facility] ([facility]) - 04/20/2020 7:06 PM CDT Performed at: ??01 - [facility] [address] ??[id number] Chart Computer: Kiran Guerra MD, Phone: ??[phone] Heraclio Dave MD LAB - CHEMISTRY MIRI GO [facility] ([facility]) [address] [place] [address] * (ABNORMAL) PT PTT PANEL (04/18/2020 9:29 AM CDT) Pathologist [facility] PT 14.3 12.1 - 14.8 sec 04/18/2020 10:00 AM CDT [facility] INR 1.2(H) 0.9 - 1.1 04/18/2020 10:00 AM CDT [facility] PTT 27.0 23.0 - 38.4 sec 04/18/2020 10:00 AM CDT [facility] Blood BLOOD SPECIMEN / Unknown Venipuncture / Unknown 04/18/2020 9:29 AM CDT 04/18/2020 9:42 AM CDT Narrative [facility] - 04/18/2020 10:00 AM CDT Conventional Warfarin Anticoagulant Therapy: INR Reference Range: ??2.0-3.0 Intensive Warfarin Anticoagulant Therapy: INR Reference Range: ? 2.5-3.5 Heparin Therapeutic Range for PTT: ??71.0 - 109.0 seconds. Clem Brown MD LAB - COAGULATION OR DERABLES Performing Organization Address [facility] Co de Phone Number [facility] [address] [phone] * (ABNORMAL) [id number] ANTIBODY (04/18/2020 9:29 AM CDT) Pathologist [facility] [id number] Antibody 15(H) <12 Units/mL 04/22/2020 5:07 PM CDT [facility] ([facility]) Comment: Results for this test are for research purposes only by the assay's principal librarian. ??The performance characteristics of this product have not been established. ??Results should not be used as a diagnostic procedure without confirmation of the diagnosis by another medically established diagnostic product or procedure. Blood BLOOD SPECIMEN / Unknown Venipuncture / Unknown 04/18/2020 9:29 AM CDT 04/18/2020 9:42 AM CDT Narrative [facility] ([facility]) - 04/22/2020 5:07 PM CDT Performed at: ??01 - [facility] ??[id number] Chart Computer: Kiran Guerra MD, Phone: ??[phone] Heraclio Dave MD LAB - COAGULATION OR DERABLES [facility] ([facility]) [address] [place] [address] * (ABNORMAL) [id number] ACTIVITY (04/18/2020 9:29 AM CDT) [id number] Activity 41.7(L) >66.8 % 04/20/2020 7:06 PM CDT [facility] ([facility]) Blood BLOOD SPECIMEN / Unknown Venipuncture / Unknown 04/18/2020 9:29 AM CDT 04/18/2020 9:42 AM CDT Narrative [facility] ([facility]) - 04/20/2020 7:06 PM CDT Test(s) [id number] Activity was developed and its performance characteristics determined by [facility]. It has not been cleared or approved by the Food and Drug Administration. Performed at: ??01 - [facility] ??[id number] Chart Computer: Kiran Guerra MD, Phone: ??[phone] Heraclio Dave MD LAB - COAGULATION OR DERABLES Performing Organization Address [facility] Co de Phone Number [facility] ([facility]) [address] [place] [address] * LISET DIRECT (04/18/2020 9:29 AM CDT) Direct Liset (LANDY) NEG 04/18/2020 10:25 AM CDT [facility] Blood Bank BLOOD SPECIMEN / Unknown Venipuncture / Unknown 04/18/2020 9:29 AM CDT 04/18/2020 9:43 AM CDT Heraclio Dave MD LAB - BLOOD BANK ORD ERABLES Performing Organization Address City/[facility]/ZIP Co de Phone Number [facility] [address] [phone] * FIBRINOGEN ACTIVITY (04/18/2020 9:29 AM CDT) [facility] Fibrinogen 217 200 - 400 mg/dL 04/18/2020 9:59 AM CDT [facility] Blood BLOOD SPECIMEN / Unknown Venipuncture / Unknown 04/18/2020 9:29 AM CDT 04/18/2020 9:42 AM CDT Annabella Johnson MD LAB - COAGULATION OR DERABLES Performing Organization Address City/[facility]/ZIP Co de Phone Number [facility] [address] [place] [address] * (ABNORMAL) GLUCOSE - POINT OF CARE (04/18/2020 9:26 AM CDT) [facility] Glucose WB/POC 174(H) 70 - 106 mg/dL 04/18/2020 2:43 PM CDT [facility] Specimen Type Arterial/C apillary 04/18/2020 2:43 PM CDT [facility] Blood BLOOD SPECIMEN / Unknown 04/18/2020 9:26 AM CDT 04/18/2020 2:43 PM CDT Phuong Frazier MD LAB - POINT OF CARE ORDERABLES Performing Organization Address [facility]/ZIP Co de Phone Number [facility] [address] [place] [address] * PATHOLOGY PERIPHERAL SMEAR REVIEW (04/18/2020 8:31 AM CDT) [facility] Case Report Pathology Interpretation Report ? Case: [id number] ? Authorizing Provider: ??Heraclio Dave MD ? Collected: ? 04/18/2020 08:31 AM ? Ordering Location: ? [facility] ? Received: ?04/18/2020 08:31 AM ? Pathologist: ? Kathleen Caly, ? MD ? Specimen: ?Blood ? 04/18/2020 2:22 PM CDT [facility] Final Diagnosis Final diagnosis: - Leukocytosis with left-shift - Normocytic, normochromic anemia - Severe thrombocytopenia A comparison with a previous slide was requested ([id number]). Review of the morphologic and differential count [...] correlation is advised. 04/18/2020 2:22 PM CDT [facility] Blood BLOOD SPECIMEN / Unknown 04/18/2020 8:31 AM CDT 04/18/2020 8:31 AM CDT Heraclio Dave MD LAB - PATHOLOGY/CYTO LOGY ORDERABLES Performing Organization Address City/State/[facility] Co de Phone Number [facility] [address] [place] [address] * XR CHEST 1VW PORTABLE (04/18/2020 8:15 [...] PANEL W D-DIMER (04/18/2020 7:53 AM CDT) PT 13.8 12.1 - 14.8 sec 04/18/2020 8:29 AM CDT [facility] INR 1.1 0.9 - 1.1 04/18/2020 8:29 AM CDT [facility] PTT 27.5 23.0 - 38.4 sec 04/18/2020 8:29 AM CDT [facility] Fibrinogen 278 200 - 400 mg/dL 04/18/2020 8:29 AM CDT [facility] D-Dimer 3.18(H) 0.27 - 0.50 ug/mL FEU 04/18/2020 8:29 AM CDT [facility] Platelet Count 51(L) 153 - 416 x10E9/L 04/18/2020 8:29 AM T [facility] Blood BLOOD SPECIMEN / Unknown Venipuncture / Unknown 04/18/2020 7:53 AM CDT 04/18/2020 8:09 AM CDT Narrative [facility] - 04/18/2020 8:29 AM CDT Conventional [...] = Non applicable Reference: Br. J. Haematol. ??145:[id number]. Clem Brown MD LAB - COAGULATION OR DERABLES [facility] [address] [place] [address] * (ABNORMAL) CBC W AUTO DIFFERENTIAL (04/18/2020 7:50 AM CDT) WBC 17.6(H) 4.4 - 10.7 x10E9/L 04/18/2020 8:20 AM CDT [facility] WBC Corrected 04/18/2020 8:20 AM CDT [facility] RBC 2.96(L) 3.80 - 5.20 x10E12/L 04/18/2020 8:20 AM CDT [facility] Hemoglobin 8.2(L) 12.0 - 15.6 gm/dL 04/18/2020 8:20 AM CDT [facility] Hematocrit 25.1(L) 35.9 - 45.5 % 04/18/2020 8:20 AM CDT [facility] MCV 84.8 80.7 - 98.3 fl 04/18/2020 8:20 AM CDT [facility] LABORATORY MCH 27.7 26.7 - 34.0 pg 04/18/2020 8:20 AM CDT [facility] MCHC 32.7 30.8 - 35.9 gm/dL 04/18/2020 8:20 AM CDT [facility] Platelet Count 53(L) 153 - 416 x10E9/L 04/18/2020 8:20 AM CDT [facility] RDW-CV 15.7(H) 12.1 - 14.9 % 04/18/2020 8:20 AM CDT [facility] Neutrophils % 91.9(H) 44.0 - 73.0 % 04/18/2020 8:20 AM CDT [facility] Lymphocytes % 4.4(L) 20.0 - 43.0 % 04/18/2020 8:20 AM CDT [facility] Monocytes % 2.0(L) 5.0 - 13.0 % 04/18/2020 8:20 AM CDT [facility] Eosinophils % 0.1 0.0 - 6.0 % 04/18/2020 8:20 AM CDT [facility] Basophils % 0.2 0.0 - 2.0 % 04/18/2020 8:20 AM CDT [facility] Immature Granulocytes 1.4(H) 0 - 1 % 04/18/2020 8:20 AM CDT [facility] Neutrophil Absolute 16.17(H) 2.01 - 7.14 x10E9/L 04/18/2020 8:20 AM CDT [facility] Lymphocytes Absolute 0.77(L) 1.07 - 3.94 x10E9/L 04/18/2020 8:20 AM CDT [facility] Monocytes Absolute 0.35 0.26 - 1.07 x10E9/L 04/18/2020 8:20 AM CDT [facility] Eosinophils Absolute 0.01 0 - 0.47 x10E9/L 04/18/2020 8:20 AM CDT [facility] Basophils Absolute 0.04 0 - 0.08 x10E9/L 04/18/2020 8:20 AM CDT [facility] Immature Granulocytes Absolute 0.24(H) 0.00 - 0.06 x10E9/L 04/18/2020 8:20 AM CDT [facility] nRBC Auto 0 /100 WBC 04/18/2020 8:20 AM CDT [facility] Blood BLOOD SPECIMEN / Unknown Venipuncture / Unknown 04/18/2020 7:50 AM CDT 04/18/2020 8:09 AM CDT Clem Brown MD LAB - HEMATOLOGY ORD ERABLES [facility] [address] [place] [address] * (ABNORMAL) BLOOD GASES ARTERIAL (04/18/2020 7:43 AM CDT) pH Arterial 7.31(L) 7.35 - 7.45 pH 04/18/2020 9:03 AM CDT [facility] Comment:L pCO2 Arterial 36 35 - 45 mm hg 04/18/2020 9:03 AM CDT [facility] pO2 Arterial 147(H) 80 - 100 mm hg 04/18/2020 9:03 AM CDT [facility] Comment:H HCO3 Arterial 18(L) 22 - 26 mmol/L 04/18/2020 9:03 AM CDT [facility] Comment:L BE Arterial -7.8(L) -2.0 - 2.0 mmol/L 04/18/2020 9:03 AM CDT [facility] Comment:L O2 Saturation Arterial 99 90 - 100 % 04/18/2020 9:03 AM CDT [facility] Hemoglobin Arterial 9.3(L) 14.0 - 16.0 gm/dL 04/18/2020 9:03 AM CDT [facility] Carboxyhemoglobin Arterial 0.2 0.0 - 2.5 % 04/18/2020 9:03 AM CDT [facility] Methemoglobin Arterial 0.7 0.0 - 2.0 % 04/18/2020 9:03 AM CDT [facility] Oxyhemoglobin Arterial 97 % 04/18/2020 9:03 AM CDT [facility] Mode CMV 04/18/2020 9:03 AM CDT [facility] Aamir's Test N/A 04/18/2020 9:03 AM CDT [facility] FI O2 40 % 04/18/2020 9:03 AM CDT [facility] Tidal Volume 450 mL 04/18/2020 9:03 AM CDT [facility] PEEP (cmH2O) 8.0 04/18/2020 9:03 AM CDT [facility] Respiratory Rate 20.0 04/18/20 20 9:03 AM CDT [facility] Sample Site Art Line 04/18/2020 9:03 AM CDT [facility] Sample Type Arterial 04/18/2020 9:03 AM CDT [facility] [employer] ID [id number] 04/18/2020 9:03 AM CDT [facility] Blood, arterial ARTERIAL BLOOD SPECIMEN / Unknown 04/18/2020 7:43 AM CDT 04/18/2020 7:43 AM CDT Angela Mallory MD LAB - BLOOD GASES OR DERABLES Performing Organization Address City/State/[facility] Co de Phone Number [facility] [address] [place] [address] * (ABNORMAL) BLOOD GASES ARTERIAL (04/18/2020 6:07 AM CDT) pH Arterial 7.08(LL) 7.35 - 7.45 pH 04/18/2020 6:16 AM CDT [facility] Comment:LL pCO2 Arterial 56(H) 35 - 45 mm hg 04/18/2020 6:16 AM CDT [facility] Comment:H pO2 Arterial 281(H) 80 - 100 mm hg 04/18/2020 6:16 AM CDT [facility] Comment:H HCO3 Arterial 16(L) 22 - 26 mmol/L 04/18/2020 6:16 AM CDT [facility] Comment:L BE Arterial -13.4(L) -2.0 - 2.0 mmol/L 04/18/2020 6:16 AM CDT [facility] Comment:L O2 Saturation Arterial 99 90 - 100 % 04/18/2020 6:16 AM CDT [facility] Hemoglobin Arterial 10.6(L) 14.0 - 16.0 gm/dL 04/18/2020 6:16 AM CDT [facility] Carboxyhemoglobin Arterial 0.1 0.0 - 2.5 % 04/18/2020 6:16 AM CDT [facility] Methemoglobin Arterial 0.8 0.0 - 2.0 % 04/18/2020 6:16 AM CDT [facility] Oxyhemoglobin Arterial 98 % 04/18/2020 6:16 AM CDT [facility] O2 Content Arterial 15.3 % 04/18 6:16 AM CDT [facility] Comment:L Aamir's Test N/A 04/18/2020 6:16 AM CDT [facility] FI O2 100 % 04/18/2020 6:16 AM CDT [facility] Tidal Volume 350 mL 04/18/2020 6:16 AM CDT [facility] PEEP (cmH2O) 5.0 04/18/2020 6:16 AM CDT [facility] Respiratory Rate 16.0 04/18/20 20 6:16 AM CDT [facility] Sample Site Art Line 04/18/2020 6:16 AM CDT [facility] Sample Type Arterial 04/18/2020 6:16 AM CDT [facility] [employer] ID [id number] 04/18/2020 6:16 AM CDT [facility] Notified Renea Mallory 04/18/2020 6:16 AM CDT [facility] Notification Time 04/18/2020 06:16 04/18/2020 6:16 AM CDT [facility] Notified By Kusum LARA 04/18/2020 6:16 AM CDT [facility] Blood, arterial ARTERIAL BLOOD SPECIMEN / Unknown 04/18/2020 6:07 AM CDT 04/18/2020 6:07 AM CDT Maikel Ring MD LAB - BLOOD GASES ORDERABLES [facility] [address] [place] [address] * (ABNORMAL) TRIGLYCERIDES BLOOD (04/18/2020 5:37 AM CDT) Triglycerides 160(H) <150 mg/dL 04/18/2020 8:16 AM CDT [facility] Blood BLOOD SPECIMEN / Unknown Venipuncture / Unknown 04/18/2020 5:37 AM CDT 04/18/2020 5:45 AM CDT Snehal Crowe MD LAB - CHEM ISTRY ORDERABLES Performing Organization Address [facility] Phone Number [facility] [address] [place] [address] * (ABNORMAL) SLIDE SCAN HEMATOLOGY (04/18/2020 5:37 AM CDT) Platelet Estimation Decrease d(A) Normal, Adequate platelets 04/18/2020 7:07 AM CDT [facility] Anisocytosis 1+(A) None 04/18/2020 7:07 AM CDT [facility] Poikilocytosis 1+(A) None 04/18/2020 7:07 AM CDT [facility] Polychromasia Occasion al(A) None 04/18/2020 7:07 AM CDT [facility] Guion Cells 1+(A) None 04/18/2020 7:07 AM CDT [facility] Blood BLOOD SPECIMEN / Unknown Venipuncture / Unknown 04/18/2020 5:37 AM CDT 04/18/2020 5:45 AM CDT Maikel Ring MD LAB - HEMATOLOGY ORDERABLES Performing Organization Address [facility] Phone Number [facility] [address] [place] [address] * (ABNORMAL) MAGNESIUM BLOOD (04/18/2020 5:37 AM CDT) Pathologist [facility] Magnesium 1.3(L) 1.6 - 2.6 mg/dL 04/18/2020 6:26 AM CDT [facility] Blood BLOOD SPECIMEN / Unknown Venipuncture / Unknown 04/18/2020 5:37 AM CDT 04/18/2020 5:45 AM CDT Maikel Ring MD LAB - CHEMISTRY O RDERABLES Performing Organization Address City/[facility] Co de Phone Number [facility] [address] [place] [address] * (ABNORMAL) COAGULATION PANEL W D-DIMER (04/18/2020 5:37 AM CDT) [facility] PT 14.5 12.1 - 14.8 sec 04/18/2020 6:58 AM CDT [facility] INR 1.2(H) 0.9 - 1.1 04/18/2020 6:58 AM T [facility] PTT 33.8 23.0 - 38.4 sec 04/18/2020 6:58 AM CDT [facility] Fibrinogen 239 200 - 400 mg/dL 04/18/2020 6:58 AM CDT [facility] D-Dimer 3.75(H) 0.27 - 0.50 ug/mL FEU 04/18/2020 6:58 AM T [facility] Platelet Count 38(LL) 153 - 416 x10E9/L 04/18/2020 6:58 AM T [facility] Blood BLOOD SPECIMEN / Unknown Venipuncture / Unknown 04/18/2020 5:37 AM CDT 04/18/2020 5:45 AM CDT Narrative [facility] - 04/18/2020 6:58 AM CDT Conventional Warfarin Anticoagulant Therapy INR [...] = Non applicable Reference: Br. J. Haematol. ??145:[id number],2008. Maikel Ring MD LAB - COAGULATION ORDERABLES [facility] [address] [place] [address] * (ABNORMAL) COMPREHENSIVE METABOLIC PANEL (04/18/2020 5:37 AM CDT) Glucose 306(H) 70 - 105 mg/dL 04/18/2020 6:30 AM T [facility] Sodium 138 136 - 145 mmol/L 04/18/2020 6:30 AM CDT [facility] Potassium 4.8 3.5 - 5.1 mmol/L 04/18/2020 6:30 AM CDT [facility] Chloride 110(H) 98 - 107 mmol/L 04/18/2020 6:30 AM CDT [facility] CO2 13(L) 23 - 31 mmol/L 04/18/2020 6:30 AM CDT [facility] Calcium 6.8(LL) 8.4 - 10.4 mg/dL 04/18/2020 6:30 AM CDT [facility] Anion Gap 15 8 - 16 mmol/L 04/18/2020 6:30 AM CDT [facility] BUN 20(H) 7 - 18.7 mg/dL 04/18/2020 6:30 AM CDT [facility] Creatinine 1.02 0.57 - 1.11 mg/dL 04/18/2020 6:30 AM CDT [facility] Alkaline Phosphatase 192(H) 40 - 150 U/L 04/18/2020 6:30 AM CDT [facility] ALT 22 0 - 61 U/L 04/18/2020 6:30 AM CDT [facility] AST 34 5 - 34 U/L 04/18/2020 6:30 AM CDT [facility] Protein Total 4.7(L) 6.4 - 8.3 gm/dL 04/18/2020 6:30 AM CDT [facility] Albumin 2.6(L) 3.5 - 5.2 gm/dL 04/18/2020 6:30 AM CDT [facility] Bilirubin Total 0.5 0.2 - 1.0 mg/dL 04/18/2020 6:30 AM CDT [facility] eGFR by MDRD >60 >60 mL/min/1.7 3m2 04/18/2020 6:30 AM CDT [facility] eGFR by MDRD >60 >60 mL/min/1.7 3m2 04/18/2020 6:30 AM CDT [facility] Blood BLOOD SPECIMEN / Unknown Venipuncture / Unknown 04/18/2020 5:37 AM CDT 04/18/2020 5:45 AM CDT Maikel Ring MD LAB - CHEMISTRY O RDERABLES Performing Organization Address City/State/[facility] Co de Phone Number [facility] [address] [place], [place] [id number] * (ABNORMAL) LACTIC ACID BLOOD (04/18/2020 5:37 AM CDT) Lactic Acid 6.9(HH) 0.5 - 2.2 mmol/L 04/18/2020 6:23 AM CDT [facility] Blood BLOOD SPECIMEN / Unknown Venipuncture / Unknown 04/18/2020 5:37 AM CDT 04/18/2020 5:44 AM CDT Maikel Ring MD LAB - CHEMISTRY O RDERABLES [facility] [address] [place], [place] [id number] * (ABNORMAL) CBC W AUTO DIFFERENTIAL (04/18/2020 5:37 AM CDT) WBC 23.1(H) 4.4 - 10.7 x10E9/L 04/18/2020 6:33 AM CDT [facility] WBC Corrected 04/18/2020 6:33 AM CDT [facility] RBC 3.23(L) 3.80 - 5.20 x10E12/L 04/18/2020 6:33 AM CDT [facility] Hemoglobin 8.9(L) 12.0 - 15.6 gm/dL 04/18/2020 6:33 AM CDT [facility] Hematocrit 28.6(L) 35.9 - 45.5 % 04/18/2020 6:33 AM CDT [facility] MCV 88.5 80.7 - 98.3 fl 04/18/2020 6:33 AM CDT [facility] MCH 27.6 26.7 - 34.0 pg 04/18/2020 6:33 AM CDT [facility] MCHC 31.1 30.8 - 35.9 gm/dL 04/18/2020 6:33 AM CDT [facility] Platelet Count 39(LL) 153 - 416 x10E9/L 04/18/2020 6:33 AM CDT [facility] RDW-CV 16.3(H) 12.1 - 14.9 % 04/18/2020 6:33 AM CDT [facility] Neutrophils % 87.8(H) 44.0 - 73.0 % 04/18/2020 6:33 AM CDT [facility] Lymphocytes % 5.2(L) 20.0 - 43.0 % 04/18/2020 6:33 AM CDT [facility] Monocytes % 2.0(L) 5.0 - 13.0 % 04/18/2020 6:33 AM CDT [facility] Eosinophils % 0.2 0.0 - 6.0 % 04/18/2020 6:33 AM CDT [facility] Basophils % 0.4 0.0 - 2.0 % 04/18/2020 6:33 AM CDT [facility] Immature Granulocytes 4.4(H) 0 - 1 % 04/18/2020 6:33 AM CDT [facility] Neutrophil Absolute 20.24(H) 2.01 - 7.14 x10E9/L 04/18/2020 6:33 AM CDT [facility] Lymphocytes Absolute 1.21 1.07 - 3.94 x10E9/L 04/18/2020 6:33 AM CDT [facility] Monocytes Absolute 0.46 0.26 - 1.07 x10E9/L 04/18/2020 6:33 AM CDT [facility] Eosinophils Absolute 0.04 0 - 0.47 x10E9/L 04/18/2020 6:33 AM CDT [facility] Basophils Absolute 0.09(H) 0 - 0.08 x10E9/L 04/18/2020 6:33 AM CDT [facility] Immature Granulocytes Absolute 1.01(H) 0.00 - 0.06 x10E9/L 04/18/2020 6:33 AM CDT [facility] nRBC Auto 0 /100 WBC 04/18/2020 6:33 AM CDT [facility] Blood BLOOD SPECIMEN / Unknown Venipuncture / Unknown 04/18/2020 5:37 AM CDT 04/18/2020 5:45 AM CDT Maikel Ring MD LAB - HEMATOLOGY ORDERABLES Performing Organization Address City/State/[facility] Co de Phone Number [facility] [address] [place], [place] [phone] * PTT (04/18/2020 5:37 AM CDT) [facility] PTT 33.0 23.0 - 38.4 sec 04/18/2020 6:53 AM CDT [facility] Blood BLOOD SPECIMEN / Unknown Venipuncture / Unknown 04/18/2020 5:37 AM CDT 04/18/2020 5:45 AM CDT Narrative [facility] - 04/18/2020 6:53 AM CDT Heparin Therapeutic Range for PTT: ??71.0 - 109.0 seconds. Annabella Johnson MD LAB - COAGULATION OR DERABLES Performing Organization Address [facility] de Phone Number [facility] [address] [place], [place] [phone] * (ABNORMAL) PT-INR (04/18/2020 5:37 AM CDT) Pathologist [facility] PT 14.4 12.1 - 14.8 sec 04/18/2020 6:52 AM CDT [facility] INR 1.2(H) 0.9 - 1.1 04/18/2020 6:52 AM CDT [facility] Blood BLOOD SPECIMEN / Unknown Venipuncture / Unknown 04/18/2020 5:37 AM CDT 04/18/2020 5:45 AM CDT Narrative [facility] - 04/18/2020 6:52 AM CDT Conventional Warfarin Anticoagulant Therapy: INR Reference Range: ??2.0-3.0 Intensive Warfarin Anticoagulant Therapy: INR Reference Range: ? 2.5-3.5 Annabella Johnson MD LAB - COAGULATION OR DERABLES Performing Organization Address [facility] de Phone Number [facility] [address] [place], [place] [phone] * FIBRINOGEN ACTIVITY (04/18/2020 5:37 AM CDT) [facility] Fibrinogen 250 200 - 400 mg/dL 04/18/2020 6:55 AM CDT [facility] Blood BLOOD SPECIMEN / Unknown Venipuncture / Unknown 04/18/2020 5:37 AM CDT 04/18/2020 5:45 AM CDT Annabella Johnson MD LAB - COAGULATION OR DERABLES Performing Organization Address [facility] de Phone Number [facility] [address] [place], [place] [phone] * PATHOLOGY TISSUE EXAM (STL) (04/18/2020 4:24 AM CDT) Pathologist [facility] Case Report Surgical Pathology Report ? Case: [id number] ? Authorizing Provider: ??Marisa James MD ? Collected: ? 04/18/2020 04:24 AM ? Ordering Location: ? [facility] ? Received: ?04/18/2020 07:17 AM ? Pathologist: ? Phuong Hernadez MD ? Specimens: ?? A) - Placenta 3rd Trimester ? B) - Placenta 3rd Trimester ? 04/23/2020 7:57 AM [facility] Final Diagnosis Twin placenta, delivery (A) - One of separate diamnionic, dichorionic twin placentas - Disrupted placental disc, completeness cannot be confirmed (see comment) - Chorangiosis and chorangiomatosis - Scattered pigmented amnionic macrophages - No umbilical cord received with disc Twin placenta, delivery (B) - One of separate diamnionic, dichorionic twin placentas - Mature villous morphology - Focal lymphohistiocytic villitis (see comment) - Scattered pigmented amnionic macrophages - Three-vessel umbilical cord with no histopathologic abnormality - Separate portion of three-vessel umbilical cord with recent perivascular hemorrhage 04/23/2020 7:57 AM [facility] Clinical History The patient is a 29-year-old woman at 38 weeks, 1 day gestation with twins, with clinically suspected placental abruption. 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 Operative procedure/findings: section, Apgars 6/7/8 and 5/8. 04/23/2020 7:57 AM [facility] Gross Description The requisition and specimens are identified with the patient's name, Hillary Smalls. Received in formalin, specimen A; placenta, is a 521 g, discoid-shaped portion of placenta measuring 19.0 x 17.1 x 1.5 cm. There is a central defect that is transmural measuring 5.2 x 5.1 cm that is 5.0 cm from the closest margin. There is no umbilical cord present. There are detached, brown-jean-baptiste membranes. When re-approximated, the membranes insert marginally. The surface is brown-jean-baptiste, and the maternal surface is brown-jean-baptiste with disrupted cotyledons. The specimen is serially sectioned to show brown-jean-baptiste parenchyma. There is no adherent clot, indentation of the maternal surface, or gross infarcts. Import Export Manager sections are submitted as follows: A1 - membranes A2-A3 - placenta Received in formalin, specimen B; placenta, is a 457 g, discoid, intact placenta measuring 16.0 x 14.7 x 1.9 cm with an attached white-jean-baptiste umbilical cord measuring 27.0 cm in length and 1.1 cm in diameter that inserts paracentrally 5.1 cm from the closest margin. There is also a detached segment of umbilical cord measuring 10.2 cm in length and 1.0 cm in diameter that is trivascular, appropriately coiled, and without gross abnormalities. The umbilical cord that is attached to the placenta is trivascular, appropriately coiled, and without gross abnormalities. The brown-jean-baptiste membranes insert marginally. The surface is blue-jean-baptiste, and the maternal surface is brown-jean-baptiste with intact cotyledons. The parenchyma is red-jean-baptiste and without gross abnormalities. There is no adherent clot, indentation of the maternal surface, or gross infarcts. Import Export Manager sections are submitted as follows: B1 - attached umbilical cord and membranes B2-B3 - placenta B4 - detached segment of umbilical cord DS/ns 04/23/2020 7:57 AM T [facility] Microscopic Description Microscopic examination substantiates the above diagnosis. Completeness of placenta specimen A cannot be confirmed due to disruption. Clinical correlation is required, to exclude retained products of conception. These findings were communicated to Dr. Keren Hicks by Dr. Hernadez via phone on 04/22/2020. In most cases of villitis, an etiology cannot be established; however, villitis may be seen in infections spread hematogenously from mother to fetus such as CMV, syphilis, toxoplasmosis, and others. and maternal serologies may be helpful if clinically indicated. 04/23/2020 7:57 AM [facility] Disclaimer All histochemical and/or immunohistochemical results are interpreted with controls that demonstrate appropriate staining reactions before reporting results. Note on use of immunocytochemistry reagents: This test was developed and its performance characteristic determined by [facility], Department of Laboratory Medicine. It [...] tissues. Results should be interpreted with caution. 04/23/2020 7:57 AM T [facility] Embedded Images 04/23/2020 7:57 AM CDT [facility] Pathology/Cytology ENTIRE PLACENTA / Unknown 04/18/2020 4:24 AM CDT 04/18/2020 7:17 AM CDT Comment:Pre-op diagnosis: Twin delivery by [[email or web address]] Miscellaneous samples (specimen) ENTIRE PLACENTA / Unknown 04/18/2020 4:25 AM CDT 04/18/2020 7:17 AM CDT Comment:Pre-op diagnosis: Twin delivery by [[email or web address]] Marsia James MD LAB - PATHOLOGY/CYTO LOGY ORDERABLES [facility] [address] [place] [address] * HEMOGLOBIN A1C (04/18/2020 4:13 AM CDT) Hemoglobin A1c 5.2 4.2 - 5.6 % 04/18/2020 6:37 AM CDT [facility] Estimated Average Glucose 103 mg/dL 04/18/2020 6:37 AM CDT [facility] Blood BLOOD SPECIMEN / Unknown Venipuncture / Unknown 04/18/2020 4:13 AM CDT 04/18/2020 4:16 AM CDT Narrative [facility] - 04/18/2020 6:37 AM CDT The following cutoff levels are recommended by [employer]. ?? A1c ??> 6.5% : [...] Ring MD LAB - CHEMISTRY O RDERABLES [facility] [address] [place] [address] * (ABNORMAL) COMPREHENSIVE METABOLIC PANEL (04/18/2020 4:13 AM CDT) Glucose 202(H) 70 - 105 mg/dL 04/18/2020 4:45 AM CDT [facility] Sodium 139 136 - 145 mmol/L 04/18/2020 4:45 AM CDT [facility] Potassium 4.0 3.5 - 5.1 mmol/L 04/18/2020 4:45 AM CDT [facility] Chloride 113(H) 98 - 107 mmol/L 04/18/2020 4:45 AM CDT [facility] CO2 15(L) 23 - 31 mmol/L 04/18/2020 4:45 AM CDT [facility] Calcium 7.1(L) 8.4 - 10.4 mg/dL 04/18/2020 4:45 AM CDT [facility] Anion Gap 11 8 - 16 mmol/L 04/18/2020 4:45 AM CDT [facility] BUN 19(H) 7 - 18.7 mg/dL 04/18/2020 4:45 AM CDT [facility] Creatinine 0.99 0.57 - 1.11 mg/dL 04/18/2020 4:45 AM CDT [facility] Alkaline Phosphatase 208(H) 40 - 150 U/L 04/18/2020 4:45 AM CDT [facility] ALT 23 0 - 61 U/L 04/18/2020 4:45 AM CDT [facility] AST 29 5 - 34 U/L 04/18/2020 4:45 AM CDT [facility] Protein Total 4.4(L) 6.4 - 8.3 gm/dL 04/18/2020 4:45 AM CDT [facility] Albumin 2.3(L) 3.5 - 5.2 gm/dL 04/18/2020 4:45 AM CDT [facility] Bilirubin Total 0.4 0.2 - 1.0 mg/dL 04/18/2020 4:45 AM CDT [facility] eGFR by MDRD >60 >60 mL/min/1.7 3m2 04/18/2020 4:45 AM CDT [facility] eGFR by MDRD >60 >60 mL/min/1.7 3m2 04/18/2020 4:45 AM CDT [facility] Blood BLOOD SPECIMEN / Unknown Venipuncture / Unknown 04/18/2020 4:13 AM CDT 04/18/2020 4:16 AM CDT Mayuri Norton MD LAB - CHEMISTRY MIRI GO Performing Organization Address [facility] Co de Phone Number [facility] [address] [place] [address] * PTT (04/18/2020 4:13 AM CDT) PTT 38.1 23.0 - 38.4 sec 04/18/2020 4:34 AM CDT [facility] Blood BLOOD SPECIMEN / Unknown Venipuncture / Unknown 04/18/2020 4:13 AM CDT 04/18/2020 4:16 AM CDT Narrative [facility] - 04/18/2020 4:34 AM CDT Heparin Therapeutic Range for PTT: ??71.0 - 109.0 seconds. Annabella Johnson MD LAB - COAGULATION OR DERABLES Performing Organization Address [facility] de Phone Number [facility] [address] [place] [address] * (ABNORMAL) PT-INR (04/18/2020 4:13 AM CDT) PT 15.6(H) 12.1 - 14.8 sec 04/18/2020 4:33 AM CDT [facility] INR 1.3(H) 0.9 - 1.1 04/18/2020 4:33 AM CDT [facility] Blood BLOOD SPECIMEN / Unknown Venipuncture / Unknown 04/18/2020 4:13 AM CDT 04/18/2020 4:16 AM CDT Narrative [facility] - 04/18/2020 4:33 AM CDT Conventional Warfarin Anticoagulant Therapy: INR Reference Range: ??2.0-3.0 Intensive Warfarin Anticoagulant Therapy: INR Reference Range: ? 2.5-3.5 Annabella Johnson MD LAB - COAGULATION OR DERABLES Performing Organization Address City/[facility]/ZIP Co de Phone Number [facility] [address] [place] [address] * FIBRINOGEN ACTIVITY (04/18/2020 4:13 AM CDT) [facility] Fibrinogen 238 200 - 400 mg/dL 04/18/2020 4:34 AM CDT [facility] Blood BLOOD SPECIMEN / Unknown Venipuncture / Unknown 04/18/2020 4:13 AM CDT 04/18/2020 4:16 AM CDT Annabella Johnson MD LAB - COAGULATION OR DERABLES [facility] [address] [place] [address] * (ABNORMAL) CBC W AUTO DIFFERENTIAL (04/18/2020 4:13 AM CDT) [facility] WBC 19.5(H) 4.4 - 10.7 x10E9/L 04/18/2020 4:[facility]rected 04/18/2020 4:30 [facility] RBC 2.04(L) 3.80 - 5.20 x10E12/L 04/18/2020 4:30 AM CDT [facility] Hemoglobin 5.4(LL) 12.0 - 15.6 gm/dL 04/18/2020 4:30 AM T [facility] Hematocrit 17.6(LL) 35.9 - 45.5 % 04/18/2020 4:30 AM [facility] MCV 86.3 80.7 - 98.3 fl 04/18/2020 4:30 AM [facility] MCH 26.5(L) 26.7 - 34.0 pg 04/18/2020 4:30 AM CDT [facility] LABORATORY MCHC 30.7(L) 30.8 - 35.9 gm/dL 04/18/2020 4:30 AM CDT [facility] Platelet Count 42(LL) 153 - 416 x10E9/L 04/18/2020 4:30 AM [facility] RDW-CV 19.7(H) 12.1 - 14.9 % 04/18/2020 4:30 [facility] Neutrophils % 88.8(H) 44.0 - 73.0 % 04/18/2020 4:30 AM CDT [facility] Lymphocytes % 6.4(L) 20.0 - 43.0 % 04/18/2020 4:30 AM CDT [facility] Monocytes % 1.8(L) 5.0 - 13.0 % 04/18/2020 4:30 AM CDT [facility] Eosinophils % 0.1 0.0 - 6.0 % 04/18/2020 4:30 AM CDT [facility] Basophils % 0.3 0.0 - 2.0 % 04/18/2020 4:30 AM CDT [facility] Immature Granulocytes 2.6(H) 0 - 1 % 04/18/2020 4:30 AM CDT [facility] Neutrophil Absolute 17.28(H) 2.01 - 7.14 x10E9/L 04/18/2020 4:30 AM CDT [facility] Lymphocytes Absolute 1.25 1.07 - 3.94 x10E9/L 04/18/2020 4:30 AM CDT [facility] Monocytes Absolute 0.35 0.26 - 1.07 x10E9/L 04/18/2020 4:30 AM CDT [facility] Eosinophils Absolute 0.01 0 - 0.47 x10E9/L 04/18/2020 4:30 AM CDT [facility] Basophils Absolute 0.05 0 - 0.08 x10E9/L 04/18/2020 4:30 AM CDT [facility] Immature Granulocytes Absolute 0.51(H) 0.00 - 0.06 x10E9/L 04/18/2020 4:30 AM CDT [facility] nRBC Auto 0 /100 WBC 04/18/2020 4:30 AM CDT [facility] Blood BLOOD SPECIMEN / Unknown Venipuncture / Unknown 04/18/2020 4:13 AM CDT 04/18/2020 4:16 AM CDT Annabella Johnson MD LAB - HEMATOLOGY ORD ERABLES [facility] [address] [place] [address] * (ABNORMAL) BLOOD GASES CORD JEREMY (04/18/2020 3:12 AM CDT) pH Cord Venous 6.98(LL) 7.28 - 7.40 pH 04/18/2020 3:26 AM CDT [facility] Comment:LL pCO2 Cord Venous 75(HH) 35 - 45 mm hg 04/18/2020 3:26 AM CDT [facility] Comment:HH pO2 Cord Venous 18(L) 22 - 33 mm hg 04/18/2020 3:26 AM CDT [facility] Comment:L HCO3 Cord Venous 17(L) 22 - 24 mmol/L 04/18/2020 3:26 AM CDT [facility] Comment:L BE Cord Venous -15.6 mmol/L 04/18/2020 3:26 AM CDT [facility] O2 Saturation Cord Venous 26 % 04/18/2020 3:26 AM CDT [facility] Aamir's Test N/A 04/18/2020 3:26 AM CDT [facility] Sample Site Other 04/18/2020 3:26 AM CDT [facility] Sample Type Cord Blood Venous 04/18/2020 3:26 AM CDT [facility] [employer] Shop Supervisor ID [id number] 04/18/2020 3:26 AM CDT [facility] Notified Who jerrod hydrographical technical officer 04/18/2020 3:26 AM CDT [facility] Notification Time 04/18/2020 03:26 04/18/2020 3:26 AM CDT [facility] Notified By octavia morrissey 04/18/2020 3:26 AM CDT [facility] Blood CORD BLOOD SPECIMEN / Unknown 04/18/2020 3:12 AM CDT 04/18/2020 3:12 AM CDT Afsaneh Sandoval MD LAB - BLOOD GASES OR DERABLES [facility] [address] [place] [address] * (ABNORMAL) BLOOD GASES CORD ARTERIAL (04/18/2020 3:12 AM CDT) pH Cord Arterial 6.92(LL) 7.20 - 7.34 pH 04/18/2020 3:27 AM CDT [facility] Comment:LL pCO2 Cord Arterial 89(HH) 45 - 55 mm hg 04/18/2020 3:27 AM CDT [facility] Comment:HH pO2 Cord Arterial 04/18/2020 3:27 AM CDT [facility] Comment:< HCO3 Cord Arterial 18.0(L) 22.0 - 24.0 mmol/L 04/18/2020 3:27 AM CDT [facility] Comment:L BE Cord Arterial -16.3 mmol/L 04/18/20 20 3:27 AM CDT [facility] O2 Saturation Cord Arterial 04/18/2020 3:27 AM CDT [facility] Comment:< Aamir's Test N/A 04/18/2020 3:27 AM CDT [facility] Sample Site Other 04/18/2020 3:27 AM CDT [facility] Sample Type Cord blood Arterial 04/18/2020 3:27 AM CDT [facility] [employer] Supervisor ID [id number] 04/18/2020 3:27 AM CDT [facility] Notified Renea elder hydrographical technical officer 04/18/2020 3:27 AM CDT [facility] Notification Time 04/18/2020 03:27 04/18/2020 3:27 AM CDT [facility] Notified By octavia morrissey 04/18/2020 3:27 AM CDT [facility] Blood, arterial CORD BLOOD SPECIMEN / Unknown 04/18/2020 3:12 AM CDT 04/18/2020 3:12 AM CDT Afsaneh Sandoval MD LAB - BLOOD GASES OR DERABLES Performing Organization Address City/State/[facility] Co de Phone Number [facility] [address] [place] [address] * (ABNORMAL) BLOOD GASES CORD ARTERIAL (04/18/2020 3:07 AM CDT) pH Cord Arterial 7.08(L) 7.20 - 7.34 pH 04/18/2020 3:24 AM CDT [facility] Comment:LL pCO2 Cord Arterial 64(H) 45 - 55 mm hg 04/18/2020 3:24 AM CDT [facility] Comment:H pO2 Cord Arterial 14 12 - 25 mm hg 04/18/2020 3:24 AM CDT [facility] Comment:L HCO3 Cord Arterial 18.4(L) 22.0 - 24.0 mmol/L 04/18/2020 3:24 AM CDT [facility] Comment:L BE Cord Arterial -12.5 mmol/L 04/18/20 20 3:24 AM CDT [facility] O2 Saturation Cord Arterial 22 % 04/18/2020 3:24 AM CDT [facility] Aamir's Test N/A 04/18/2020 3:24 AM CDT [facility] Sample Site Other 04/18/2020 3:24 AM CDT [facility] Sample Type Cord Blood Venous 04/18/2020 3:24 AM CDT [facility] [employer] Supervisor ID [id number] 04/18/2020 3:24 AM CDT [facility] Notified Renea elder hydrographical technical officer 04/18/2020 3:24 AM CDT [facility] Notification Time 04/18/2020 03:24 04/18/2020 3:24 AM CDT [facility] Notified By octavia morrissey 04/18/2020 3:24 AM CDT [facility] Blood, arterial CORD BLOOD SPECIMEN / Unknown 04/18/2020 3:07 AM CDT 04/18/2020 3:07 AM CDT Narrative [facility] - 04/18/2020 3:24 AM CDT baby a Afsaneh Sandoval MD LAB - BLOOD GASES OR DERABLES Performing Organization Address City/State/[facility] Co de Phone Number [facility] [address] [phone] * (ABNORMAL) BLOOD GASES CORD JEREMY (04/18/2020 3:07 AM CDT) pH Cord Venous 7.09(L) 7.28 - 7.40 pH 04/18/2020 3:23 AM CDT [facility] Comment:L pCO2 Cord Venous 58(H) 35 - 45 mm hg 04/18/2020 3:23 AM CDT [facility] Comment:H pO2 Cord Venous 28 22 - 33 mm hg 04/18/2020 3:23 AM CDT [facility] HCO3 Cord Venous 17(L) 22 - 24 mmol/L 04/18/2020 3:23 AM CDT [facility] Comment:L BE Cord Venous -13.1 mmol/L 04/18/2020 3:23 AM CDT [facility] O2 Saturation Cord Venous 54 % 04/18/2020 3:23 AM CDT [facility] Aamir's Test N/A 04/18/2020 3:23 AM CDT [facility] Sample Site Other 04/18/2020 3:23 AM CDT [facility] Sample Type Cord Blood Venous 04/18/2020 3:23 AM CDT [facility] Furrier Shop Supervisor ID [id number] 04/18/2020 3:23 AM CDT [facility] Notification Time 04/18/2020 03:23 04/18/2020 3:23 AM CDT [facility] Blood CORD BLOOD SPECIMEN / Unknown 04/18/2020 3:07 AM CDT 04/18/2020 3:07 AM CDT Narrative [facility] - 04/18/2020 3:23 AM CDT baby a Afsaneh Sandoval MD LAB - BLOOD GASES OR DERABLES Performing Organization Address [facility] Co de Phone Number [facility] [address] [place] [address] * PTT (04/18/2020 12:53 AM CDT) PTT 33.4 23.0 - 38.4 sec 04/18/2020 1:29 AM CDT [facility] Blood BLOOD SPECIMEN / Unknown Venipuncture / Unknown 04/18/2020 12:53 AM CDT 04/18/2020 1:14 AM CDT Narrative [facility] - 04/18/2020 1:29 AM CDT Heparin Therapeutic Range for PTT: ??71.0 - 109.0 seconds. Annabella Johnson MD LAB - COAGULATION OR DERABLES Performing Organization Address [facility] Co de Phone Number [facility] [address] [place] [address] * PT-INR (04/18/2020 12:53 AM CDT) PT 13.1 12.1 - 14.8 sec 04/18/2020 1:28 AM CDT [facility] INR 1.0 0.9 - 1.1 04/18/2020 1:28 AM CDT [facility] Blood BLOOD SPECIMEN / Unknown Venipuncture / Unknown 04/18/2020 12:53 AM CDT 04/18/2020 1:14 AM CDT Narrative [facility] - 04/18/2020 1:28 AM CDT Conventional Warfarin Anticoagulant Therapy: INR Reference Range: ??2.0-3.0 Intensive Warfarin Anticoagulant Therapy: INR Reference Range: ? 2.5-3.5 Annabella Johnson MD LAB - COAGULATION OR DERABLES Performing Organization Address City/[facility] Co de Phone Number [facility] [address] [place], [place] [phone] * FIBRINOGEN ACTIVITY (04/18/2020 12:53 AM CDT) [facility] Fibrinogen 345 200 - 400 mg/dL 04/18/2020 1:29 AM CDT [facility] Blood BLOOD SPECIMEN / Unknown Venipuncture / Unknown 04/18/2020 12:53 AM CDT 04/18/2020 1:14 AM CDT Annabella Johnson MD LAB - COAGULATION OR DERABLES Performing Organization Address [facility] Co de Phone Number [facility] [address] [place], [place] [phone] * (ABNORMAL) CBC W AUTO DIFFERENTIAL (04/18/2020 12:53 AM CDT) [facility] WBC 16.6(H) 4.4 - 10.7 x10E9/L 04/18/2020 1:32 AM CDT [facility] WBC Corrected 04/18/2020 1:32 AM CDT [facility] RBC 3.71(L) 3.80 - 5.20 x10E12/L 04/18/2020 1:32 AM CDT [facility] Hemoglobin 10.0(L) 12.0 - 15.6 gm/dL 04/18/2020 1:32 AM CDT [facility] Hematocrit 30.7(L) 35.9 - 45.5 % 04/18/2020 1:32 AM CDT [facility] MCV 82.7 80.7 - 98.3 fl 04/18/2020 1:32 AM CDT [facility] MCH 27.0 26.7 - 34.0 pg 04/18/2020 1:32 AM CDT [facility] MCHC 32.6 30.8 - 35.9 gm/dL 04/18/2020 1:32 AM CDT [facility] Platelet Count 29(LL) 153 - 416 x10E9/L 04/18/2020 1:32 [facility] RDW-CV 19.5(H) 12.1 - 14.9 % 04/18/2020 1:32 AM [facility] Neutrophils % 90.5(H) 44.0 - 73.0 % 04/18/2020 1:32 AM [facility] Lymphocytes % 4.0(L) 20.0 - 43.0 % 04/18/2020 1:32 AM [facility] Monocytes % 3.7(L) 5.0 - 13.0 % 04/18/2020 1:32 AM [facility] Eosinophils % 0.2 0.0 - 6.0 % 04/18/2020 1:32 AM T [facility] Basophils % 0.3 0.0 - 2.0 % 04/18/2020 1:32 AM T [facility] Immature Granulocytes 1.3(H) 0 - 1 % 04/18/2020 1:32 AM T [facility] Neutrophil Absolute 14.97(H) 2.01 - 7.14 x10E9/L 04/18/2020 1:32 AM T [facility] Lymphocytes Absolute 0.67(L) 1.07 - 3.94 x10E9/L 04/18/2020 1:32 AM CDT [facility] Monocytes Absolute 0.61 0.26 - 1.07 x10E9/L 04/18/2020 1:32 AM CDT [facility] Eosinophils Absolute 0.04 0 - 0.47 x10E9/L 04/18/2020 1:32 AM CDT [facility] Basophils Absolute 0.05 0 - 0.08 x10E9/L 04/18/2020 1:32 AM CDT [facility] Immature Granulocytes Absolute 0.22(H) 0.00 - 0.06 x10E9/L 04/18/2020 1:32 AM CDT [facility] nRBC Auto 0 /100 WBC 04/18/2020 1:32 AM CDT [facility] Blood BLOOD SPECIMEN / Unknown Venipuncture / Unknown 04/18/2020 12:53 AM CDT 04/18/2020 1:14 AM CDT Annabella Johnson MD LAB - HEMATOLOGY ORD ERABLES [facility] [address] [place] [phone] * (ABNORMAL) URINE MICROSCOPIC ONLY (04/17/2020 8:57 PM CDT) RBC UA >100(A) None Seen, 0-2, 3-5 # /hpf 04/17/2020 9:47 PM CDT [facility] WBC UA 6-10(A) None Seen, 0-5 # /hpf 04/17/2020 9:47 PM T [facility] Bacteria UA None Seen None Seen 04/17/2020 9:47 PM CDT [facility] Squamous Epithelial Cells 6-10(A) None Seen, 0-2, 3-5 /hpf 04/17/2020 9:47 PM CDT [facility] Urine URINE SPECIMEN OBTAINED BY CLEAN CATCH PROCEDURE / Unknown Collection / Unknown 04/17/2020 8:57 PM CDT 04/17/2020 9:08 PM CDT Narrative [facility] - 04/17/2020 9:47 PM CDT Annabella Johnson MD LAB - URINALYSIS ORD ERABLES [facility] [address] [place] [address] * PTT (04/17/2020 8:57 PM CDT) PTT 33.2 23.0 - 38.4 sec 04/17/2020 9:28 PM CDT [facility] Blood BLOOD SPECIMEN / Unknown Venipuncture / Unknown 04/17/2020 8:57 PM CDT 04/17/2020 9:08 PM CDT Narrative [facility] - 04/17/2020 9:28 PM CDT Heparin Therapeutic Range for PTT: ??71.0 - 109.0 seconds. Mayuri Norton MD LAB - COAGULATION OR DERABLES Performing Organization Address [facility] de Phone Number [facility] [address] [place], [place] [phone] * PT-INR (04/17/2020 8:57 PM CDT) Pathologist [facility] PT 13.2 12.1 - 14.8 sec 04/17/2020 9:27 PM CDT [facility] INR 1.1 0.9 - 1.1 04/17/2020 9:27 PM CDT [facility] Blood BLOOD SPECIMEN / Unknown Venipuncture / Unknown 04/17/2020 8:57 PM CDT 04/17/2020 9:08 PM CDT Narrative [facility] - 04/17/2020 9:27 PM CDT Conventional Warfarin Anticoagulant Therapy: INR Reference Range: ??2.0-3.0 Intensive Warfarin Anticoagulant Therapy: INR Reference Range: ? 2.5-3.5 Mayuri Norton MD LAB - COAGULATION OR DERABLES Performing Organization Address [facility] de Phone Number [facility] [address] [place] [address] * (ABNORMAL) COMPREHENSIVE METABOLIC PANEL (04/17/2020 8:57 PM CDT) Glucose 67(L) 70 - 105 mg/dL 04/17/2020 9:39 PM CDT [facility] Sodium 138 136 - 145 mmol/L 04/17/2020 9:39 PM CDT [facility] Potassium 4.3 3.5 - 5.1 mmol/L 04/17/2020 9:39 PM CDT [facility] Chloride 112(H) 98 - 107 mmol/L 04/17/2020 9:39 PM CDT [facility] CO2 16(L) 23 - 31 mmol/L 04/17/2020 9:39 PM CDT [facility] Calcium 7.8(L) 8.4 - 10.4 mg/dL 04/17/2020 9:39 PM CDT [facility] Anion Gap 10 8 - 16 mmol/L 04/17/2020 9:39 PM CDT [facility] BUN 21(H) 7 - 18.7 mg/dL 04/17/2020 9:39 PM CDT [facility] Creatinine 1.07 0.57 - 1.11 mg/dL 04/17/2020 9:39 PM CDT [facility] Alkaline Phosphatase 334(H) 40 - 150 U/L 04/17/2020 9:39 PM CDT [facility] ALT 30 0 - 61 U/L 04/17/2020 9:39 PM CDT [facility] AST 40(H) 5 - 34 U/L 04/17/2020 9:39 PM CDT [facility] Protein Total 5.3(L) 6.4 - 8.3 gm/dL 04/17/2020 9:39 PM CDT [facility] Albumin 2.7(L) 3.5 - 5.2 gm/dL 04/17/2020 9:39 PM CDT [facility] Bilirubin Total 0.3 0.2 - 1.0 mg/dL 04/17/2020 9:39 PM CDT [facility] eGFR by MDRD 60(L) >60 mL/min/1.7 3m2 04/17/2020 9:39 PM CDT [facility] eGFR by MDRD >60 >60 mL/min/1.7 3m2 04/17/2020 9:39 PM CDT [facility] Blood BLOOD SPECIMEN / Unknown Venipuncture / Unknown 04/17/2020 8:57 PM CDT 04/17/2020 9:09 PM CDT Mayuri Norton MD LAB - CHEMISTRY MIRI GO [facility] Organization Address City/State/ZIP Co de Phone Number [facility] [address] [place] [address] * (ABNORMAL) RUBELLA ANTIBODY IGG (04/17/2020 8:57 PM CDT) Rubella Antibody <0.90(L) Immune >0.99 index 04/19/2020 7:09 AM CDT [facility] ([facility]) Comment: ?Non-immune ? <0.90 ?Equivocal ??0.90 - 0.99 ?Immune ? >0.99 Blood BLOOD SPECIMEN / Unknown Venipuncture / Unknown 04/17/2020 8:57 PM CDT 04/17/2020 9:09 PM CDT Narrative [facility] ([facility] - 04/19/2020 7:09 AM CDT Performed at: ??01 - [facility] [address] [place], [place] ??[id number] Chart Computer: Tyrone Rider PhD, Phone: ??[phone] Mayuri Norton MD LAB - SEROLOGY ORDER CRUZITO Performing Organization Address City/[facility] Co de Phone Number [facility] ([facility]) [address] [place] [phone] * SYPHILIS ANTIBODY CASCADING REFLEX (04/17/2020 8:57 PM CDT) Treponema pallidum Antibody Non Reactive Non Reactive 04/17/2020 10:02 PM CDT [facility] Comment: No Laboratory evidence of syphilis infection. ?? Note: ??Circulating antibodies may be low or undetectable in early infection. ??If recent exposure is suspected, re-draw sample in 2-4 weeks and repeat testing. Blood BLOOD SPECIMEN / Unknown Venipuncture / Unknown 04/17/2020 8:57 PM CDT 04/17/2020 9:09 PM CDT Mayuri Norton MD LAB - SEROLOGY ORDER CRUZITO Performing Organization Address City/[facility]/ZIP Co de Phone Number [facility] [address] [place] [address] * HIV-1 HIV-2 ANTIBODY + HIV P24 AG PANEL (04/17/2020 8:57 PM CDT) [facility] HIV1/2 Ab + P24 Ag Non Reactive Non Reactive 04/17/2020 10:02 PM CDT [facility] Blood BLOOD SPECIMEN / Unknown Venipuncture / Unknown 04/17/2020 8:57 PM CDT 04/17/2020 9:09 PM CDT Narrative [facility] - 04/17/2020 10:02 PM CDT No Laboratory evidence of HIV infection. Mayuri Norton MD LAB - CHEMISTRY ORDE RABLES [facility] [address] [place] [id number] * FIBRINOGEN ACTIVITY (04/17/2020 8:57 PM CDT) [facility] Fibrinogen 325 200 - 400 mg/dL 04/17/2020 9:48 PM CDT [facility] Blood BLOOD SPECIMEN / Unknown Venipuncture / Unknown 04/17/2020 8:57 PM CDT 04/17/2020 9:08 PM CDT Mayuri Norton MD LAB - COAGULATION OR DERABLES Performing Organization Address City/[facility]/ZIP Co de Phone Number [facility] [address] [place] [phone] * (ABNORMAL) CULTURE URINE (04/17/2020 8:57 PM CDT) [facility] Culture Urine 50,000-100,000 CFU/mL Escherichia coli(A) BERT 04/19/2020 10:33 AM CDT [facility] Culture Urine 50,000-100,000 CFU/mL Streptococcus agalactiae (Group B)(A) 04/19/2020 10:33 AM CDT [facility] Culture Urine 50,000-100,000 CFU/mL urogenital aneudy BETR 04/19/2020 10:33 AM CDT [facility] Urine URINE SPECIMEN OBTAINED BY CLEAN CATCH PROCEDURE / Unknown Collection / Unknown 04/17/2020 8:57 PM CDT 04/17/2020 9:08 PM CDT Narrative [facility] - 04/19/2020 10:33 AM CDT Susceptibility [...] <=0.25 ug/mL: Susceptible Escherichia coli Extended-Spectrum Beta-Lactamase BRET NEG ug/mL: Neg Escherichia coli Gentamicin BERT [...] Johnson MD LAB - MICROBIOLOGY O RDERABLES [facility] [address] [place] [address], [facility] [phone] * (ABNORMAL) URINALYSIS REFLEX TO MICROSCOPIC NO CULTURE (04/17/2020 8:57 PM CDT) [facility] Signature Color UA Yellow Straw, Yellow 04/17/2020 9:18 PM CDT [facility] Clarity UA Slt Cloudy(A) Clear 04/17/2020 9:18 PM CDT [facility] Glucose UA Negative Negative 04/17/2020 9:18 PM CDT [facility] Bilirubin UA Negative Negative 04/17/2020 9:18 PM CDT [facility] Ketone UA Negative Negative 04/17/2020 9:18 PM CDT [facility] Specific Cyrus UA 1.015 1.005 - 1.030 04/17/2020 9:18 PM CDT [facility] Blood UA 3+(A) Negative 04/17/2020 9:18 PM CDT [facility] pH UA 6.0 5.0 - 8.0 pH 04/17/2020 9:18 PM CDT [facility] Protein UA 1+(A) Negative 04/17/2020 9:18 PM CDT [facility] Urobilinogen UA Negative Negative mg/dL 04/17/2020 9:18 PM CDT [facility] Nitrite UA Negative Negative 04/17/2020 9:18 PM CDT [facility] Leukocyte UA Negative Negative 04/17/2020 9:18 PM CDT [facility] Urine Microscopy Urine microscopy to follow 04/17/2020 9:18 PM CDT [facility] Urine URINE SPECIMEN OBTAINED BY CLEAN CATCH PROCEDURE / Unknown Collection / Unknown 04/17/2020 8:57 PM CDT 04/17/2020 9:08 PM CDT Narrative [facility] - 04/17/2020 9:18 PM CDT Annabella Johnson MD LAB - URINALYSIS ORD ERABLES [facility] [address] [place] [address] * (ABNORMAL) DRUG SCREEN TOX URINE PANEL (04/17/2020 8:57 PM CDT) [facility] Amphetamines Screen Urine Detected(A) Not detected 04/17/2020 9:38 PM CDT [facility] Barbiturates Screen Urine Not detected Not detected 04/17/2020 9:38 PM CDT [facility] Benzodiazepines Screen Urine Not detected Not detected 04/17/2020 9:38 PM CDT [facility] Cannabinoids Screen Urine Not detected Not detected 04/17/2020 9:38 PM CDT [facility] Cocaine Screen Urine Not detected Not detected 04/17/2020 9:38 PM CDT [facility] Fentanyl Urine Not detected Not detected 04/17/2020 9:38 PM CDT [facility] Methadone Screen Urine Not detected Not detected 04/17/2020 9:38 PM CDT [facility] Opiate Screen Urine Not detected Not detected 04/17/2020 9:38 PM CDT [facility] Phencyclidine Screen Urine Not detected Not detected 04/17/2020 9:38 PM CDT [facility] Urine URINE / Unknown Collection / Unknown 04/17/2020 8:57 PM CDT 04/17/2020 9:08 PM CDT Narrative [facility] - 04/17/2020 9:38 PM CDT This [...] MD LAB - URINE CHEMISTR Y ORDERABLES [facility] [address] [place] [address] * BLOOD TYPE VERIFICATION (04/17/2020 8:24 PM CDT) ABO Rh A POS 04/17/2020 8:4 7 PM CDT [facility] Blood Bank BLOOD SPECIMEN / Unknown Venipuncture / Unknown 04/17/2020 8:24 PM CDT 04/17/2020 8:24 PM CDT Phuong Frazier MD LAB - BLOOD BANK OR DERABLES Performing Organization Address City/[facility]/ZIP Co de Phone Number [facility] [address] [phone] * PREPARE (CROSSMATCH) RBC UNIT(S), 1 Units (04/17/2020 8:12 PM CDT) Unit Description AS1 LR PRBC [facility] Unit ABO A [facility] Unit Rh POS [facility] Product Number R02 [facility] Unit Donor # [id number] [facility] BLOOD [facility]ANK LAB Unit Status released [facility] OD BANK LAB Product [facility] [id number] [facility] Blood Type Barcode 6200 [facility] Expiration Date [facility] Unit Description AS1 LR PRBC [facility] Unit ABO A [facility] Unit Rh POS [facility] Product Number R02 [facility] Unit Donor # [id number] [facility] Unit Status transfused [facility] Product [facility] [id number] [facility] Blood Type Barcode 6200 [facility] Expiration Date [facility] Blood Bank BLOOD SPECIMEN / Unknown 04/17/2020 8:12 PM CDT 04/17/2020 8:16 PM CDT Shayna Chirinos MD LAB - BLOOD BANK ORDERABLES [facility] [address] [phone] * PREPARE (CROSSMATCH) RBC UNIT(S), 1 Units (04/17/2020 8:12 PM CDT) Unit Description AS1 LR PRBC [facility] Unit ABO A [facility] Unit Rh POS [facility] Product Number R02 [facility] Unit Donor # [id number] [facility] Unit Status released [facility] OD [facility] Product [facility] [id number] [facility] Blood Type Barcode 6200 [facility]piration Date [facility] Unit Description AS1 LR PRBC [facility] Unit ABO A [facility] Unit Rh POS [facility] Product Number R02 [facility] Unit Donor # [id number] [facility] C B[facility]OD [facility] Unit Status transfused [facility] Product Code [id number] [facility] Blood Type Barcode 6200 [facility] Expiration Date S [facility] [facility] Blood Bank BLOOD SPECIMEN / Unknown 04/17/2020 8:12 PM CDT 04/17/2020 8:16 PM CDT Marisa James MD LAB - BLOOD BANK ORD ERABLES [facility] [address] [phone] * PATHOLOGY PERIPHERAL SMEAR REVIEW (04/17/2020 8:12 PM CDT) Case Report Pathology Interpretation Report ? Case: [id number] ? Authorizing Provider: ??Heraclio Dave MD ? Collected: ? 04/17/2020 08:12 PM ? Ordering Location: ? HC 4 ICU MEDICAL ? Received: ?04/18/2020 08:36 AM ? Pathologist: ? Kathleen Clay, ? MD ? Specimen: ?Blood ? 04/18/2020 2:22 PM CDT [facility] Final Diagnosis Final diagnosis: - WBC within the normal range, increased toxic neutrophils - Normocytic, normochromic anemia - Severe thrombocytopenia Review of the morphologic and differential count of the peripheral smear confirms the CBC data. The smear shows increased numbers of toxic neutrophils with a slight left shift. No circulating blasts are seen. The lymphocytes are mostly small and mature. The remaining leukocytes are unremarkable. The red blood cells show a normocytic, normochromic anemia. The platelets are significantly decreased in number. No platelet clumping is noted. 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 Alex), vitamin B12 deficiency in the context of severe vaginal bleeding after a delivery. Clinical correlation is advised. 04/18/2020 2:22 PM CDT [facility] Blood BLOOD SPECIMEN / Unknown 04/17/2020 8:12 PM CDT 04/18/2020 8:36 AM CDT Heraclio Dave MD LAB - PATHOLOGY/CYTO LOGY ORDERABLES [facility] [address] [place] [address] * PREPARE CRYOPRECIPITATE UNIT (S), 2 Units (04/17/2020 8:12 PM CDT) Unit Description Thawed Cryp Clsd [facility] Unit ABO A [facility] Unit Rh POS [facility] Product Number [id number] [facility] Unit Donor # [id number] [facility] Unit Status transfused [facility] Product Code [id number] [facility] Blood Type Barcode 6200 [facility] Expiration Date [facility] Unit Description Thawed Cryp Clsd [facility] Unit ABO A [facility] Unit Rh POS [facility] Product Number [id number] [facility] Unit Donor # [id number] [facility] Unit Status transfused [facility] Product Code [id number] [facility] Blood Type Barcode 6200 [facility] Expiration Date [facility] Blood Bank BLOOD SPECIMEN / Unknown 04/17/2020 8:12 PM CDT 04/17/2020 8:16 PM CDT Phuong Frazier MD LAB - BLOOD BANK OR DERABLES [facility] [address] [phone] * PREPARE (CROSSMATCH) RBC UNIT(S), 2 Units (04/17/2020 8:12 PM CDT) Unit Description AS1 LR PRBC [facility] Unit ABO A [facility] Unit Rh POS [facility] Product Number R02 [facility] Unit Donor # [id number] [facility] Unit Status released [facility] Product Code [id number] [facility] Blood Type Barcode 6200 [facility] Expiration Date [facility] Unit Description AS1 LR PRBC [facility] Unit ABO A [facility] Unit Rh POS [facility] Product Number R02 [facility] Unit Donor # [id number] [facility] Unit Status released [facility] OD BANK LAB Product Code [id number] [facility] Blood Type Barcode 6200 [facility] Expiration Date [id number] [facility] Unit Description AS1 LR PRBC [facility] Unit ABO A [facility] Unit Rh POS [facility] Product Number R02 [facility] Unit Donor # [id number] [facility] Unit Status released [facility] OD BANK LAB Product Code [id number] [facility] Blood Type Barcode 6200 [facility] Expiration Date [id number] [facility] Unit Description AS1 LR PRBC [facility] Unit ABO A [facility] Unit Rh POS [facility] Product Number R02 [facility] Unit Donor # [id number] [facility] Unit Status released [facility] Product Code [id number] [facility] Blood Type Barcode 6200 [facility] Expiration Date [id number] [facility] Unit Description AS1 LR PRBC [facility] Unit ABO A [facility] Unit Rh POS [facility] Product Number R44 [facility] Unit Donor # [id number] [facility] Unit Status transfused [facility] Product Code [id number] [facility] OOD BANK LAB Blood Type Barcode 6200 [facility] Expiration Date [id number] [facility] Blood Bank BLOOD SPECIMEN / Unknown 04/17/2020 8:12 PM CDT 04/17/2020 8:16 PM CDT Mayuri Norton MD LAB - BLOOD BANK ORD ERABLES [facility] [address] [phone] * PREPARE (CROSSMATCH) RBC UNIT(S), 1 Units (04/17/2020 8:12 PM CDT) Unit Description AS1 LR PRBC [facility] Unit ABO A [facility] Unit Rh POS [facility] Product Number R02 [facility] Unit Donor # [id number] [facility] Unit Status transfused [facility] Product Code [id number] [facility] Blood Type Barcode 6200 [facility] Expiration Date [facility] Blood Bank BLOOD SPECIMEN / Unknown 04/17/2020 8:12 PM CDT 04/17/2020 8:16 PM CDT Mayuri Norton MD LAB - BLOOD BANK ORD ERABLES [facility] [address] [place] [address] * PREPARE FFP UNIT(S), 1 Units (04/17/2020 8:12 PM CDT) Unit Description Thawed Plasma 5D [facility] Unit ABO AB [facility] Unit Rh POS [facility] Product Number [id number] [facility] Unit Donor # [id number] [facility] Unit Status released [facility] Product Code [id number] [facility] Blood Type Barcode 8400 [facility] Expiration Date [facility] Unit Description Thawed Plasma 5D [facility] Unit ABO AB [facility] Unit Rh POS [facility] Product Number [id number] [facility] Unit Donor # [id number] [facility] Unit Status transfused [facility] Product Code [id number] [facility] Blood Type Barcode 8400 [facility] Expiration Date [facility] Unit Description Thawed Plasma 5D [facility] Unit ABO AB [facility] Unit Rh POS [facility] Product Number E2684 [facility] Unit Donor # [id number] [facility] Unit Status transfused [facility] Product Code [id number] [facility] Blood Type Barcode 8400 [facility] Expiration Date [id number] [facility] Blood Bank BLOOD SPECIMEN / Unknown 04/17/2020 8:12 PM CDT 04/17/2020 8:16 PM CDT Afsaneh Sandoval MD LAB - BLOOD BANK ORD ERABLES [facility] [address] [phone] * PREPARE PLATELET PHERESIS UNIT(S), 2 Units (04/17/2020 8:12 PM CDT) Unit Description LR PLT Pher IRR [facility] Unit ABO AB [facility] Unit Rh POS [facility] Product Number P14 [facility] Unit Donor # [id number] [facility] Unit Status transfused [facility]OD [facility]ANK LAB Product [facility] [id number] [facility]OD [facility] Blood Type Barcode 8400 [facility] Expiration Date [facility] Unit Description LR PLT Pheresis [facility] Unit ABO A [facility] Unit Rh POS [facility] Product Number P01 [facility] Unit Donor # [id number] [facility] Unit Status released [facility] Product Code [id number] [facility]OD [facility] Blood Type Barcode 6200 [facility] Expiration Date [id number] [facility] Unit Description LR PLT Pheresis [facility] Unit ABO A [facility] Unit Rh POS [facility] Product Number P04 [facility] Unit Donor # [id number] [facility] Unit Status released [facility] Product Code [id number] [facility] Blood Type Barcode 6200 [facility] Expiration Date [facility] Blood Bank BLOOD SPECIMEN / Unknown 04/17/2020 8:12 PM CDT 04/17/2020 8:16 PM CDT Afsaneh Sandoval MD LAB - BLOOD BANK ORD ERABLES Performing Organization Address City/[facility]/ZIP Co de Phone Number [facility] [address] [place] [address] * PREPARE PLATELET PHERESIS UNIT(S), 2 Units (04/17/2020 8:12 PM CDT) [facility] Unit Description LR PLT Pheresis [facility] Unit ABO A [facility] Unit Rh POS [facility] Product Number P02 [facility] Unit Donor # [id number] [facility] Unit Status transfused [facility] Product Code [id number] [facility] Blood Type Barcode 6200 [facility] Expiration Date [id number] [facility] Blood Bank BLOOD SPECIMEN / Unknown 04/17/2020 8:12 PM CDT 04/17/2020 8:16 PM CDT Mayuri Norton MD LAB - BLOOD BANK ORD ERABLES Performing Organization Address [facility]/ZIP Co de Phone Number [facility] [address] [place] [address] * (ABNORMAL) SLIDE SCAN HEMATOLOGY (04/17/2020 8:12 PM CDT) [facility] Platelet Estimation Markedly decreased(A ) Normal, Adequate platelets 04/17/2020 8:39 PM CDT [facility] Anisocytosis 1+(A) None 04/17/2020 8:39 PM CDT [facility] Blood BLOOD SPECIMEN / Unknown Venipuncture / Unknown 04/17/2020 8:12 PM CDT 04/17/2020 8:16 PM CDT Annabella Johnson MD LAB - HEMATOLOGY ORD ERABLES [facility] [address] [place] [address] * PREPARE PLATELET PHERESIS UNIT(S), 2 Units (04/17/2020 8:12 PM CDT) Unit Description LR PLT Pheresis [facility] Unit ABO A [facility] Unit Rh POS [facility] Product Number P02 [facility] Unit Donor # [id number] [facility] Unit Status transfused [facility] Product Code [id number] [facility] Blood Type Barcode 6200 [facility] Expiration Date [facility] Unit Description LR PLT Pher IRR [facility] Unit ABO B [facility] Unit Rh POS [facility] Product Number P10 [facility] Unit Donor # [id number] [facility] Unit Status released [facility] Product Code [id number] [facility] Blood Type Barcode 7300 [facility] Expiration Date [facility] Unit Description LR PLT Pheresis [facility] Unit ABO A [facility] Unit Rh POS [facility] Product Number P02 [facility] Unit Donor # [id number] [facility] Unit Status transfused [facility] Product Code [id number] [facility] Blood Type Barcode 6200 [facility] Expiration Date [facility] Unit Description LR PLT Pheresis [facility] Unit ABO A [facility] Unit Rh POS [facility] Product Number P02 [facility] Unit Donor # [id number] [facility] Unit Status transfused [facility] Product Code [id number] [facility] Blood Type Barcode 6200 [facility] Expiration Date [facility] Unit Description LR PLT Pheresis [facility] Unit ABO A [facility] Unit Rh POS [facility] Product Number P02 [facility] Unit Donor # [id number] [facility] Unit Status transfused [facility] Product Code [id number] [facility] Blood Type Barcode 6200 [facility] Expiration Date [facility] Blood Bank BLOOD SPECIMEN / Unknown 04/17/2020 8:12 PM CDT 04/17/2020 8:16 PM CDT Annabella Johnson MD LAB - BLOOD BANK ORD ERABLES [facility] [address] [phone] * PREPARE (CROSSMATCH) RBC UNIT(S), 2 Units (04/17/2020 8:12 PM CDT) Unit Description AS1 LR PRBC [facility] Unit ABO A [facility] Unit Rh POS [facility] Product Number R02 [facility] Unit Donor # [id number] [facility] Unit Status transfused [facility] Product Code [id number] [facility] Blood Type Barcode 6200 [facility] Expiration Date [facility] Unit Description AS1 LR PRBC [facility] Unit ABO A [facility] Unit Rh POS [facility] Product Number R43 [facility] Unit Donor # [id number] [facility] Unit Status transfused [facility] Product Code [id number] [facility] Blood Type Barcode 6200 [facility] Expiration Date [id number] [facility] Unit Description AS1 LR PRBC [facility] Unit ABO A [facility] Unit Rh NEG [facility] Product Number R02 [facility] Unit Donor # [id number] [facility] Unit Status transfused [facility] Product Code [id number] [facility] Blood Type Barcode 0600 [facility] Expiration Date [facility] Unit Description AS5 LR PRBC [facility] Unit ABO A [facility] Unit Rh POS [facility] Product Number R22 [facility] Unit Donor # [id number] [facility] Unit Status transfused [facility] Product Code [id number] [facility] Blood Type Barcode 6200 [facility] Expiration Date [id number] [facility] Blood Bank BLOOD SPECIMEN / Unknown 04/17/2020 8:12 PM CDT 04/17/2020 8:16 PM CDT Annabella Johnson MD LAB - BLOOD BANK ORD ERABLES Performing Organization Address City/[facility]/ZIP Co de Phone Number [facility] [address] [place] [address] * TYPE + SCREEN PANEL (04/17/2020 8:12 PM CDT) Pathologist [facility] ABO Rh A POS 04/17/2020 8:47 PM CDT [facility] Antibody Screen NEG 0 8:47 PM CDT [facility] Blood Bank BLOOD SPECIMEN / Unknown Venipuncture / Unknown 04/17/2020 8:12 PM CDT 04/17/2020 8:16 PM CDT Annabella Johnson MD LAB - BLOOD BANK ORD ERABLES Performing Organization Address City/[facility] Co de Phone Number [facility] [address] [place] [address] * (ABNORMAL) CBC W AUTO DIFFERENTIAL (04/17/2020 8:12 PM CDT) WBC 7.9 4.4 - 10.7 x10E9/L 04/17/2020 8:26 PM CDT [facility] WBC Corrected 04/17/2020 8:26 PM CDT [facility] RBC 3.87 3.80 - 5.20 x10E12/L 04/17/2020 8:26 PM CDT [facility] Hemoglobin 10.1(L) 12.0 - 15.6 gm/dL 04/17/2020 8:26 PM CDT [facility] Hematocrit 31.8(L) 35.9 - 45.5 % 04/17/2020 8:26 PM CDT [facility] MCV 82.2 80.7 - 98.3 fl 04/17/2020 8:26 PM CDT [facility] MCH 26.1(L) 26.7 - 34.0 pg 04/17/2020 8: [facility] MCHC 31.8 30.8 - 35.9 gm/dL 04/17/2020 8: PM [facility] Platelet Count 30(LL) 153 - 416 x10E9/L 04/17/2020 8: PM [facility] RDW-CV 19.3(H) 12.1 - 14.9 % 04/17/2020 8: PM [facility] Neutrophils % 70.2 44.0 - 73.0 % 04/17/2020 8: PM [facility] Lymphocytes % 19.9(L) 20.0 - 43.0 % 04/17/2020 8: PM [facility] Monocytes % 6.7 5.0 - 13.0 % 04/17/2020 8: PM [facility] Eosinophils % 1.3 0.0 - 6.0 % 04/17/2020 8: PM [facility] Basophils % 0.5 0.0 - 2.0 % 04/17/2020 8: PM [facility] Immature Granulocytes 1.4(H) 0 - 1 % 04/17/2020 8: PM [facility] Neutrophil Absolute 5.54 2.01 - 7.14 x10E9/L 04/17/2020 8: PM [facility] Lymphocytes Absolute 1.57 1.07 - 3.94 x10E9/L 04/17/2020 8: PM [facility] Monocytes Absolute 0.53 0.26 - 1.07 x10E9/L 04/17/2020 8: PM [facility] Eosinophils Absolute 0.10 0 - 0.47 x10E9/L 04/17/2020 8: PM [facility] Basophils Absolute 0.04 0 - 0.08 x10E9/L 04/17/2020 8: PM [facility] Immature Granulocytes Absolute 0.11(H) 0.00 - 0.06 x10E9/L 04/17/2020 8: PM [facility] nRBC Auto 0 /100 WBC 04/17/2020 8:26 PM CDT [facility] Blood BLOOD SPECIMEN / Unknown Venipuncture / Unknown 04/17/2020 8:12 PM CDT 04/17/2020 8:16 PM CDT Annabella Johnson MD LAB - HEMATOLOGY ORD ERABLES [facility] [address] [place] [phone] documented in this encounter Visit Diagnoses Diagnosis Hemorrhagic shock (HCC)- Primary Other shock without mention of trauma Twin gestation in third trimester, unspecified multiple gestation type (HCC) Intubation of airway performed without difficulty Hemorrhagic shock (HCC) Other shock without mention of trauma Pre-eclampsia in third trimester (HCC) Mild or unspecified pre-eclampsia, antepartum Twin (HCC) Polysubstance abuse (HCC) Other, mixed, or unspecified nondependent drug abuse, unspecified Hepatitis C virus infection without hepatic coma Chronic idiopathic thrombocytopenia (HCC) Immune thrombocytopenic purpura Acute respiratory failure (HCC) Acute respiratory failure Acute blood loss anemia Acute posthemorrhagic anemia documented in this encounter Administered Medications Inactive Administered Medications - up to 3 most recent administrations Medication Order MAR Action Action Date Dose Rate Site 0.9% NaCl flush bag at 3 mL/hr, 250 mL, CONTINUOUS PRN, Starting on Tue04/18/20 at 0904, Until Tue04/23/20 at 1706, FLUSH BAG, Use for: IVPB flush Current Rate 04/18/2020 6:11 PM CDT 3 mL/hr Current Rate 04/18/2020 4:09 PM CDT 3 mL/hr Current Rate 04/18/2020 11:55 AM CDT 3 mL/hr 0.9% NaCl infusion ADS Med 1 dose, Starting on Tue04/18/20 at 0854, Until Tue04/18/20 at 0910, Created by cabinet override 0.9% NaCl infusion ADS Med 1 dose, Starting on Tue04/20/20 at 0952, Until Tue04/20/20 at 1008, Chen Ba: cabinet override $ New Bag/Syringe 04/20/2020 10:08 AM CDT 500 mL 0.9% NaCl injection 1-10 mL 1-10 mL, Intracatheter, PRN, Other, peripheral line flush, Starting on Brittni 04/17/20 at 2008, Until 04/19/20 at 1620, Flush peripheral IV catheter with 1-10 mL of normal saline before and after medications and prn to clear blood from the line or to verify patency. $ Given 04/18/2020 2:31 PM CDT 10 mL 0.9% NaCl injection 1-10 mL 1-10 mL, Intracatheter, PRN, Other, peripheral line flush, Starting on 04/19/20 at 2223, Until 04/23/20 at 1706, Flush peripheral IV catheter with 1-10 mL of normal saline before and after medications and prn to clear blood from the line or to verify patency. 0.9% NaCl injection 3 mL 3 mL, Intracatheter, EVERY 8 HOURS, First dose on Brittni 04/17/20 at 2200, Until Discontinued, Flush peripheral IV catheter with 3 mL of normal saline every 8 hours. $ Given 04/19/2020 5:50 AM CDT 3 mL $ Given 04/18/2020 8:56 PM CDT 3 mL $ Given 04/18/2020 2:33 PM CDT 3 mL 0.9% NaCl injection 3 mL 3 mL, Intracatheter, EVERY 8 HOURS, First dose on [facility] 04/19/20 at 1630, Until Discontinued, $ Given 04/20/2020 3:12 PM CDT 3 mL $ Given 04/20/2020 5:59 AM CDT 3 mL $ Given 04/19/2020 10:13 PM CDT 3 mL 0.9% NaCl injection 3 mL 3 mL, Intracatheter, EVERY 8 HOURS, First dose on [facility] 04/19/20 at 2300, Until Discontinued, Flush peripheral IV catheter with 3 mL of normal saline every 8 hours. $ Given 04/22/2020 6:33 AM CDT 3 mL $ Given 04/21/2020 11:47 PM CDT 3 mL $ Given 04/21/2020 4:16 PM CDT 3 mL acetaminophen (TYLENOL) suppository 650 mg 650 mg, Rectal, ONCE PRN, prior to blood product transfusion, 1 dose, Starting on 04/19/20 at 2224, Until Tue04/23/20 at 1706, Give rectally if unable to take acetaminophen orally. To be given prior to blood product transfusion acetaminophen (TYLENOL) tablet 1,000 mg 1,000 mg, Oral, EVERY 6 HOURS, First dose on Tue04/20/20 at 1200, Until Discontinued $ Given 04/23/2020 2:06 PM CDT 1,000 mg $ Given 04/23/2020 9:13 AM CDT 1,000 mg $ Given 04/23/2020 1:36 AM CDT 1,000 mg acetaminophen (TYLENOL) tablet 650 mg 650 mg, Oral, ONCE PRN, prior to blood product transfusion, 1 dose, Starting on Tue04/19/20 at 2224, Until Tue04/23/20 at 1706, To be given prior to blood product transfusion artificial tears ophthalmic ointment Each Eye, EVERY 8 HOURS, First dose on Tue04/18/20 at 0600, Until Discontinued $ Given 04/19/2020 6:03 AM CDT $ Given 04/18/2020 8:56 PM CDT $ Given 04/18/2020 2:32 PM CDT dzldcofshu-umnpsrttsggrd-hpgngepx (FIORICET) 50-325-40 MG tablet 1 tablet 1 tablet, Oral, ONCE, 1 dose, On Tue04/17/20 at 2330, Do not exceed 6 tablets in 24 hours $ Given 04/17/2020 11:15 PM CDT 1 tablet calcium gluconate 10 % injection 1 g 1 g, Intravenous, PRN, magnesium overdose, Starting on Tue04/20/20 at 1421, Until Tue04/23/20 at 1706, Watch for signs and symptoms of Magnesium Sulfate toxicity: A) Magnesium Sulfate level greater than 7. B) Absence of reflexes. C) Respirations less than 10-12 per minute. carboprost (HEMABATE) injection 250 mcg 250 mcg, Intramuscular, ONCE, 1 dose, On Tue04/18/20 at 0500, Injection should be deep within muscle using tuberculin syringe. $ Given 04/18/2020 4:40 AM CDT 250 mcg Left leg chlorhexidine (PERIDEX) 0.12 % oral solution 15 mL 15 mL, Mouth/Throat, 2 TIMES DAILY, First dose on Tue04/18/20 at 0900, Until Discontinued, Swab oral mucosa for 30 seconds. Do not brush teeth immediately after use. . WASTE DISPOSAL INSTRUCTIONS: Black Bin Disposal required. $ Given 04/19/2020 9:13 AM CDT 15 mL $ Given 04/18/2020 8:55 PM CDT 15 mL $ Given 04/18/2020 9:22 AM CDT 15 mL cyanocobalamin (VITAMIN B-12) injection 1,000 mcg 1,000 mcg, Intramuscular, DAILY, 7 doses, First dose on Tue04/18/20 at 0900, Last dose on Tue04/24/20 at 0900 $ Given 04/23/2020 9:14 AM CDT 1,000 mcg Right Deltoid $ Given 04/22/2020 9:15 AM CDT 1,000 mcg Ri ght Deltoid $ Given 04/21/2020 9:31 AM CDT 1,000 mcg Le ft Deltoid dexamethasone (DECADRON) 40 mg in 0.9% NaCl IV 60 mL IVPB 40 mg, at 240 mL/hr, Intravenous, DAILY, First dose on Tue04/17/20 at 2145, Until Discontinued $ New Bag/Syringe 04/17/2020 10:49 PM CDT 40 mg 240 mL/hr dexamethasone (DECADRON) tablet 40 mg 40 mg, Oral, DAILY, 4 doses, First dose on Tue04/22/20 at 1230, Last dose on Tue04/25/20 at 0900, Take large doses with meals and take antacids between meals to prevent peptic ulcer $ Given 04/22/2020 12:35 PM CDT 40 mg diphenhydrAMINE (BENADRYL) capsule 25 mg 25 mg, Oral, ONCE PRN, Itching, prior to blood product transfusion, 1 dose, Starting on 04/19/20 at 2224, Until Tue04/23/20 at 1706, To be given prior to blood product transfusion. diphenhydrAMINE (BENADRYL) injection 25 mg 25 mg, Intravenous, ONCE PRN, Itching, prior to blood product transfusion, 1 dose, Starting on 04/19/20 at 2224, Until Tue04/23/20 at 1706, To be given prior to blood product transfusion. Give IV if unable to take diphenhydramine orally diphenhydrAMINE (BENADRYL) injection 25 mg 25 mg, Intravenous, ONCE, 1 dose, On 04/21/20 at 0515, Administer IV at a rate not exceeding 25 mg/min. Can dilute in 5-10 mL NS as needed for patient comfort. $ Given 04/21/2020 6:02 AM CDT 25 mg docusate sodium (COLACE) capsule 100 mg 100 mg, Oral, 2 TIMES DAILY, 730 doses, First dose on Tue04/19/20 at 2100, Last dose on 04/19/21 at 0900, $ Given 04/23/2020 9:13 AM CDT 100 mg $ Given 04/22/2020 8:38 PM CDT 100 mg $ Given 04/22/2020 8:43 AM CDT 100 mg etomidate (AMIDATE) injection 40 mg 40 mg, Intravenous, ONCE, 1 dose, On Tue04/18/20 at 0645 $ Given 04/18/2020 5:03 AM CDT 40 mg famotidine (PEPCID) injection 20 mg 20 mg, Intravenous, 2 TIMES DAILY, First dose on Brittni 04/17/20 at 2315, Until Discontinued, Dilute 2 mL of injection with 0.9% NaCl or D5W solution to a volume of 5 to 10 ml. Push over a period of at least 2 minutes. $ Given 04/17/2020 11:15 PM CDT 20 mg famotidine (PEPCID) tablet 20 mg 20 mg, Oral, 2 TIMES DAILY, 730 doses, First dose on Tue04/19/20 at 2100, Last dose on 04/19/21 at 0900, $ Given 04/23/2020 9:13 AM CDT 20 m g $ Given 04/22/2020 8:38 PM CDT 20 mg $ Given 04/22/2020 8:43 AM CDT 20 mg fentaNYL (PF) (SUBLIMAZE) injection 100 mcg 100 mcg, Intravenous, ONCE, 1 dose, On Tue04/18/20 at 0045 $ Given 04/18/2020 12:23 AM CDT 100 mcg fentaNYL (SUBLIMAZE) bolus from infusion bag 50 mcg 50 mcg, Intravenous, BOLUS FROM BAG PRN, to reach CPOT/RASS goal as indicated by infusion order, Starting on Tue04/18/20 at 0532, Until 04/19/20 at 1008, Bolus from bag every 5 minutes to reach CPOT or RASS goal. ??Can give bolus before anticipated painful stimuli. Contact physician if unable to achieve CPOT or RASS goal after administering 4 boluses. Titrate/administer as needed for CPOT greater than 2 or RASS above goal. If a sedative is ordered, titrate/administer opioid first to achieve CPOT goal, followed by titration/administration of sedative to achieve RASS goal. Bolus From Bag 04/18/2020 6:26 AM CDT 100 mcg fentaNYL (SUBLIMAZE) injection 0.05 mg/mL ADS Med 1 dose, Starting on Tue04/18/20 at 0212, Until Tue04/18/20 at 0214, Created by cabinet override $ Given 04/18/2020 2:14 AM CDT 100 mcg fentaNYL 2500 mcg/50mL (SUBLIMAZE) infusion 0-100 mcg/hr (0-2 mL/hr), Intravenous, CONTINUOUS, Starting on Tue04/18/20 at 0615, Until Tue04/18/20 at 0715, Above CPOT or RASS goal (pain/agitated): bolus 50 mcg every 5 minutes until goal CPOT or RASS then increase rate by ordered dose.?Can give bolus before anticipated painful stimuli. Contact physician if unable to achieve CPOT or RASS goal after administering 4 boluses. At CPOT or RASS goal and no change in 4 hours: Decrease rate by 50 mcg/hr. Below CPOT or RASS goal (unarousable): Hold infusion until at goal then restart at 50% previous rate. If significant hemodynamic changes, hold or decrease rate and notify physician. Titrate/administer as needed for CPOT greater than 2 or RASS above goal. If a sedative is ordered, titrate/administer opioid first to achieve CPOT goal, followed by titration/administration of sedative to achieve RASS goal., Titration Parameters: Custom Parameters, Indication: Analgesia, Initiate infusion at: 25 mcg/hr (Standard), Titrate infusion by: 50 mcg/hr, Titrate every: 5 minutes, To maintain a: CPOT score less than 3, RASS score of -2 = Light sedation, Notify physician if: Unachievable RASS goal despite max dose, Unachievable CPOT goal despite max dose, Contact physician for: hemodynamic instability, inability to achieve CPOT/RASS goals despite maximum dosages, unable to reach CPOT/RASS goal after administering 4 boluses. Titration/Assessment 04/18/2020 6:26 AM CDT 50 mcg/hr 1 mL/hr $ New Bag/Syringe 04/18/2020 6:16 AM CDT 25 mcg/hr 0.5 mL /hr fentaNYL 2500 mcg/50mL (SUBLIMAZE) infusion 25 mcg/hr (0.5 mL/hr), Intravenous, CONTINUOUS, Starting on Tue04/18/20 at 0730, Until 04/19/20 at 1008, Above CPOT or RASS goal (pain/agitated): bolus 50 mcg every 5 minutes until goal CPOT or RASS then increase rate by ordered dose.?Can give bolus before anticipated painful stimuli. Contact physician if unable to achieve CPOT or RASS goal after administering 4 boluses. At CPOT or RASS goal and no change in 4 hours: Decrease rate by 50 mcg/hr. Below CPOT or RASS goal (unarousable): Hold infusion until at goal then restart at 50% previous rate. If significant hemodynamic changes, hold or decrease rate and notify physician. Titrate/administer as needed for CPOT greater than 2 or RASS above goal. If a sedative is ordered, titrate/administer opioid first to achieve CPOT goal, followed by titration/administration of sedative to achieve RASS goal., Titration Parameters: Fixed Dose, Indication: Analgesia, Initiate infusion at: 25 mcg/hr (Standard), Titrate to: Do not titrate. Physician order required for rate change., Notify physician if: Unachievable CPOT goal, Contact physician for: hemodynamic instability, inability to achieve CPOT/RASS goals despite maximum dosages, unable to reach CPOT/RASS goal after administering 4 boluses. Current Rate 04/18/2020 6:11 PM CDT 25 mcg/hr 0.5 mL/hr Current Rate 04/18/2020 4:09 PM CDT 25 mcg/hr 0.5 mL/hr Current Rate 04/18/2020 12:14 PM CDT 25 mcg/hr 0.5 mL/hr folic acid (FOLVITE) tablet 1 mg 1 mg, Oral, DAILY, First dose on Tue04/23/20 at 1200, Until Discontinued $ Given 04/23/2020 2:06 PM CDT 1 mg folic acid 1 mg in 0.9% NaCl IV 50 mL IVPB 1 mg, at 100 mL/hr, Intravenous, DAILY, First dose on Tue04/18/20 at 0900, Until Discontinued, Refrigerate $ New Bag/Syringe 04/22/2020 9:15 AM CDT 1 mg 100 mL/hr $ New Bag/Syringe 04/21/2020 1:17 PM CDT 1 mg 100 mL /hr $ New Bag/Syringe 04/20/2020 10:13 AM CDT 1 mg 100 m L/hr furosemide (LASIX) injection 20 mg 20 mg, Intravenous, ONCE, 1 dose, On 04/20/20 at 1600 $ Given 04/20/2020 4:02 PM CDT 20 mg furosemide (LASIX) injection 20 mg 20 mg, Intravenous, ONCE, 1 dose, On 04/21/20 at 0815 $ Given 04/21/2020 9:09 AM CDT 20 mg hydrOXYzine hcl (ATARAX) tablet 25 mg 25 mg, Oral, EVERY 6 HOURS PRN, Itching, Starting on Brittni 04/17/20 at 2306, Until Tue04/18/20 at 0533 $ Given 04/17/2020 11:15 PM CDT 25 mg ibuprofen (MOTRIN) tablet 600 mg 600 mg, Oral, EVERY 6 HOURS, First dose on 04/20/20 at 1100, Until Discontinued, Maximum allowable amount = 3200 mg / 24 hours. $ Given 04/23/2020 9:14 AM CDT 600 mg $ Given 04/23/2020 1:36 AM CDT 600 mg $ Given 04/22/2020 7:45 PM CDT 600 mg immune globulin (GAMUNEX-C) 10 % 10 g 10 g, at 0-999 mL/hr, Intravenous, DAILY, 1 dose, First dose on Tue04/18/20 at 0230, Total Dose=55g Actual Weight for Rate calculation: Wt 73.5 kg (162 lb) Initiate IVIG at 0.5 mg/kg/min (22 mL/hr with VTBI: 11.03 mL) for 30 minutes. If tolerated, increase rate to 1 mg/kg/min (44 mL/hr with VTBI: 22.05 mL ) for 30 min. If tolerated, increase rate to 2 mg/kg/min (88 mL/hr with VTBI: 44.1 mL ) for 30 min. If tolerated, increase rate to 4 mg/kg/min (176 mL/hr with VTBI: 88.2 mL ) for 30 min. If tolerated, increase rate to 8 mg/kg/min (353 mL/hr with VTBI: 176.4 mL or until bag contents completely infused) See IVIG Monitoring order in Nursing [employer] for monitoring instructions. $ New Bag/Syringe 04/18/2020 6:55 AM CDT 10 g 22 mL/hr immune globulin (GAMUNEX-C) 10 % 10 g 10 g, at 0-999 mL/hr, Intravenous, CONTINUOUS, Starting on 04/19/20 at 1200, Until 04/19/20 at 1359, Actual Weight for Rate calculation: Wt 174 lb 1.6 oz (79kg), , Initiate IVIG at 0.5 mg/kg/min (24 mL/hr with VTBI: 11.85 mL) for 30 minutes., If tolerated, increase rate to 1 mg/kg/min (47 mL/hr with VTBI: 23.7 mL ) for 30 min., If tolerated, increase rate to 2 mg/kg/min (95 mL/hr with VTBI: 47.4 mL ) for 30 min. , If tolerated, increase rate to 4 mg/kg/min (190 mL/hr with VTBI: 94.8 mL ) for 30 min., If tolerated, increase rate to 8 mg/kg/min (379 mL/hr with VTBI: 189.6 mL or until bag contents completely infused) , See IVIG Monitoring order in Nursing [employer] for monitoring instructions. $ New Bag/Syringe 04/19/2020 12:32 PM CDT 10 g 95 mL/hr immune globulin (GAMUNEX-C) 10 % 40 g 40 g, at 0-999 mL/hr, Intravenous, CONTINUOUS, Starting on Tue04/18/20 at 1130, Until Tue04/18/20 at 1529, Actual Weight for Rate calculation: Wt 73.5 kg (162 lb) Initiate IVIG at 0.5 mg/kg/min (22 mL/hr with VTBI: 11.03 mL) for 30 minutes. If tolerated, increase rate to 1 mg/kg/min (44 mL/hr with VTBI: 22.05 mL ) for 30 min. If tolerated, increase rate to 2 mg/kg/min (88 mL/hr with VTBI: 44.1 mL ) for 30 min. If tolerated, increase rate to 4 mg/kg/min (176 mL/hr with VTBI: 88.2 mL ) for 30 min. If tolerated, increase rate to 8 mg/kg/min (353 mL/hr with VTBI: 176.4 mL or until bag contents completely infused) See IVIG Monitoring order in [employer] for monitoring instructions. Rate Change 04/18/2020 9:11 AM CDT 353 mL/hr $ New Bag/Syringe 04/18/2020 9:02 AM CDT 40 g 176 mL /hr immune globulin (GAMUNEX-C) 10 % 40 g 40 g, at 0-999 mL/hr, Intravenous, CONTINUOUS, Starting on 04/19/20 at 1400, Until 04/19/20 at 1759, Actual Weight for Rate calculation: Wt 174 lb 1.6 oz (79kg), , Initiate IVIG at 0.5 mg/kg/min (24 mL/hr with VTBI: 11.85 mL) for 30 minutes., If tolerated, increase rate to 1 mg/kg/min (47 mL/hr with VTBI: 23.7 mL ) for 30 min., If tolerated, increase rate to 2 mg/kg/min (95 mL/hr with VTBI: 47.4 mL ) for 30 min. , If tolerated, increase rate to 4 mg/kg/min (190 mL/hr with VTBI: 94.8 mL ) for 30 min., If tolerated, increase rate to 8 mg/kg/min (379 mL/hr with VTBI: 189.6 mL or until bag contents completely infused) , See IVIG Monitoring order in [employer] for monitoring instructions. $ New Bag/Syringe 04/19/2020 1:32 PM CDT 40 g 190 mL/hr immune globulin (GAMUNEX-C) 10 % 5 g 5 g, at 0-999 mL/hr, Intravenous, CONTINUOUS, Starting on Tue04/18/20 at 0830, Until Tue04/18/20 at 0929, Actual Weight for Rate calculation: Wt 73.5 kg (162 lb) Initiate IVIG at 0.5 mg/kg/min (22 mL/hr with VTBI: 11.03 mL) for 30 minutes. If tolerated, increase rate to 1 mg/kg/min (44 mL/hr with VTBI: 22.05 mL ) for 30 min. If tolerated, increase rate to 2 mg/kg/min (88 mL/hr with VTBI: 44.1 mL ) for 30 min. If tolerated, increase rate to 4 mg/kg/min (176 mL/hr with VTBI: 88.2 mL ) for 30 min. If tolerated, increase rate to 8 mg/kg/min (353 mL/hr with VTBI: 176.4 mL or until bag contents completely infused) See IVIG Monitoring order in Nursing [employer] for monitoring instructions. Current Rate 04/18/2020 8:45 AM CDT 176 mL/hr $ New Bag/Syringe 04/18/2020 8:37 AM CDT 5 g 176 mL /hr immune globulin (GAMUNEX-C) 10 % 5 g 5 g, at 0-999 mL/hr, Intravenous, CONTINUOUS, Starting on 04/19/20 at 1100, Until 04/19/20 at 1159, Actual Weight for Rate calculation: Wt 174 lb 1.6 oz (79kg), , Initiate IVIG at 0.5 mg/kg/min (24 mL/hr with VTBI: 11.85 mL) for 30 minutes., If tolerated, increase rate to 1 mg/kg/min (47 mL/hr with VTBI: 23.7 mL ) for 30 min., If tolerated, increase rate to 2 mg/kg/min (95 mL/hr with VTBI: 47.4 mL ) for 30 min. , If tolerated, increase rate to 4 mg/kg/min (190 mL/hr with VTBI: 94.8 mL ) for 30 min., If tolerated, increase rate to 8 mg/kg/min (379 mL/hr with VTBI: 189.6 mL or until bag contents completely infused) , See IVIG Monitoring order in [employer] for monitoring instructions. $ New Bag/Syringe 04/19/2020 11:34 AM CDT 5 g 24 mL/hr iron polysaccharides (NIFEREX 150) capsule 150 mg 150 mg, Oral, DAILY, First dose on 04/19/20 at 1630, Until Discontinued, $ Given 04/23/2020 9:14 AM CDT 150 mg $ Given 04/22/2020 8:44 AM CDT 150 mg $ Given 04/21/2020 9:13 AM CDT 150 mg iron sucrose (VENOFER) 300 mg in 0.9% NaCl IV 265 mL IVPB 300 mg, at 176.67 mL/hr, Intravenous, DAILY, 3 doses, First dose on Tue04/18/20 at 0900, Last dose on Tue04/20/20 at 0900 $ New Bag/Syringe 04/20/2020 9:37 AM CDT 300 mg 176.67 mL/hr $ New Bag/Syringe 04/19/2020 9:20 AM CDT 300 mg 176.67 mL/hr $ New Bag/Syringe 04/18/2020 10:25 AM CDT 300 mg 176.6 7 mL/hr lactated ringers infusion ADS Med 1 dose, Starting on Brittni 04/17/20 at 2039, Until Tue04/17/20 at 2109, Created by cabinet override lactated ringers infusion at 125 mL/hr, Intravenous, CONTINUOUS, Starting on Brittni 04/17/20 at 2200, Until Tue04/18/20 at 0529, Start IV with 18 gauge angiocath. $ New Bag/Syringe 04/17/2020 9:09 PM CDT 1,000 mL 125 mL/hr lactated ringers infusion at 100 mL/hr, Intravenous, CONTINUOUS, Starting on Tue04/18/20 at 1015, Until 04/19/20 at 1300 $ New Bag/Syringe 04/19/2020 1:43 AM CDT 100 mL/hr Current Rate 04/18/2020 6:11 PM CDT 100 mL/hr $ New Bag/Syringe 04/18/2020 4:43 PM CDT 100 mL /hr lactated ringers infusion at 30 mL/hr, Intravenous, CONTINUOUS, Starting on Tue04/20/20 at 1600, Until 04/21/20 at 1520 $ New Bag/Syringe 04/20/2020 3:55 PM CDT 1,000 mL 30 mL/hr lactated ringers IV bolus 1,000 mL, at 1,935.48 mL/hr, Administer over 31 Minutes, ONCE, 1 dose, On Tue04/18/20 at 0815 Rate Change 04/18/2020 8:45 AM CDT 999 mL/hr $ New Bag/Syringe 04/18/2020 8:00 AM CDT 1,000 mL 1935.4 8 mL/hr lactated ringers IV bolus 1,000 mL, at 983.61 mL/hr, Administer over 61 Minutes, ONCE, 1 dose, On Tue04/18/20 at 0945 $ New Bag/Syringe 04/18/2020 9:20 AM CDT 1,000 mL 983.61 mL/hr magnesium hydroxide (MILK OF MAGNESIA) suspension 30 mL 30 mL, Oral, DAILY, First dose on Tue04/21/20 at 0900, Until Discontinued, Shake well before using. $ Given 04/22/2020 8:42 AM CDT 30 mL $ Given 04/21/2020 9:08 AM CDT 30 mL magnesium sulfate 2 g in 50 mL bolus 2 g, at 25 mL/hr, Administer over 120 Minutes, Intravenous, ONCE, 1 dose, On Tue04/18/20 at 0645, Infuse at 1 gm/hr Current Rate 04/18/2020 8:45 AM CDT 25 mL/hr $ New Bag/Syringe 04/18/2020 7:06 AM CDT 2 g 25 mL/ hr magnesium sulfate 40 g in 1000 mL infusion 2 g/hr (50 mL/hr), Intravenous, CONTINUOUS, Starting on Tue04/20/20 at 1500, Until Tue04/21/20 at 1520 $ New Bag/Syringe 04/21/2020 9:34 AM CDT 2 g/hr 50 mL/hr $ New Bag/Syringe 04/20/2020 3:07 PM CDT 2 g/hr 50 mL/ hr magnesium sulfate bolus from infusion bag 4 g 4 g, Intravenous, BOLUS FROM BAG ONCE, 1 dose, On Tue04/20/20 at 1430, Maximum rate 2gm/10 minutes. 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 - Chest Pain - Palpitations - Flushing - Nausea - Vomiting - Headache - Blurred Vision - Respiratory Depression -Pulmonary Edema Bolus From Bag 04/20/2020 3:07 PM CDT 4 g methylPREDNISolone sod succ (SOLU-Medrol) 1,000 mg in 0.9% NaCl IV 100 mL bolus 1,000 mg, at 100 mL/hr, Intravenous, ONCE, 1 dose, On Tue04/18/20 at 0645 $ New Bag/Syringe 04/18/2020 9:14 AM CDT 1,000 mg 100 mL/hr methylPREDNISolone sod succ (SOLU-Medrol) 1,000 mg in 0.9% NaCl IV 100 mL bolus 1,000 mg, at 100 mL/hr, Intravenous, DAILY, 2 doses, First dose on Tue04/19/20 at 0900, Last dose on Tue04/20/20 at 0900 $ New Bag/Syringe 04/20/2020 11:07 AM CDT 1,000 mg 100 mL/hr $ New Bag/Syringe 04/19/2020 9:18 AM CDT 1,000 mg 100 mL /hr metoclopramide (REGLAN) injection 10 mg 10 mg, Intravenous, ONCE, 1 dose, On Tue04/21/20 at 0515, Inject undiluted IV slowly over 1 to 2 minutes. $ Given 04/21/2020 6:02 AM CDT 10 mg NIFEdipine (PROCARDIA) capsule 10 mg 10 mg, Oral, ONCE PRN, hypertension, Starting on Tue04/20/20 at 1412, Until Tue04/20/20 at 1811, Initial Dose If systolic BP greater than or equal to 160 mmHg or diastolic BP greater than or equal to 110 mmHg for 15 minutes or more, administer nifedipine 10 mg orally. Repeat BP in 20 minutes. If BP remains elevated, see order for second nifedipine dose. $ Given 04/20/2020 2:29 PM CDT 10 mg NIFEdipine (PROCARDIA) capsule 20 mg 20 mg, Oral, ONCE PRN, htn, Starting on Tue04/20/20 at 1412, Until Tue04/20/20 at 1811, Third Dose If systolic BP greater than or equal to 160 mmHg or diastolic BP greater than or equal to 110 mmHg 20 minutes after second nifedipine dose, administer nifedipine 20 mg orally. Repeat BP in 20 minutes. If BP remains elevated, see order for labetalol $ Given 04/20/2020 3:01 PM CDT 20 mg nitrofurantoin monohyd macro crystals (MACROBID) capsule 100 mg 100 mg, Oral, 2 TIMES DAILY WITH MEALS, 14 doses, First dose on Tue04/22/20 at 0945, Last dose on Tue04/28/20 at 1800, Indication for anti-infective therapy: Documented infection, Site of anti-infective therapy: Urine/Genitourinary $ Given 04/23/2020 9:13 AM CDT 100 mg $ Given 04/22/2020 7:46 PM CDT 100 mg $ Given 04/22/2020 12:35 PM CDT 100 mg norepinephrine (LEVOPHED) 32 mg in dextrose 5 % 250 mL infusion 0-0.6 mcg/kg/min ? 73.5 kg (0-20.6719 mL/hr, rounded to 0-20.67 mL/hr), Intravenous, CONTINUOUS, Starting on Tue04/18/20 at 0600, Until 04/19/20 at 1008, Titration Parameters: Custom Parameters, Indication: Hypotension, Initiate infusion at: Custom rate in mcg/kg/min - see comments, Titrate infusion by: If current rate 0.01 to 0.1 mcg/kg/min, titrate by 0.01 mcg/kg/min. If current rate 0.11 to 0.3 mcg/kg/min, titrate by 0.02 mcg/kg/min. If current rate 0.31 mcg/kg/min to the max ordered dose, titrate by 0.05 mcg/kg/min., Titrate every: 1 minute, To maintain a: MAP greater than or equal to 65 mmHg, Notify physician if: MAP less than 65 mmHg despite max dose Rate Change 04/18/2020 9:50 AM CDT 0.06 mcg/kg/min 2.07 mL/hr Rate Change 04/18/2020 9:43 AM CDT 0.07 mcg/kg/min 2.41 mL /hr Current Rate 04/18/2020 8:45 AM CDT 0.08 mcg/kg/min 2.76 m L/hr ondansetron (disintegrating) (ZOFRAN ODT) tablet 4 mg 4 mg, Oral, EVERY 6 HOURS PRN, Nausea/Vomiting, Starting on 04/19/20 at 1620, Until 04/23/20 at 1706, Allow tablet to dissolve on the tongue, $ Given 04/20/2020 11:45 PM CDT 4 mg oxyCODONE (immediate release) (ROXICODONE) tablet 10 mg 10 mg, Oral, EVERY 4 HOURS PRN, Severe Pain, Starting on 04/20/20 at 1050, Until Tue04/23/20 at 1706 $ Given 04/23/2020 2:07 PM CDT 10 mg $ Given 04/23/2020 9:18 AM CDT 10 mg $ Given 04/21/2020 4:20 PM CDT 10 mg oxyCODONE (immediate release) (ROXICODONE) tablet 5 mg 5 mg, Oral, EVERY 4 HOURS PRN, Moderate Pain, Starting on 04/20/20 at 1050, Until 04/23/20 at 1706 $ Given 04/23/2020 4:56 AM CDT 5 mg $ Given 04/23/2020 12:36 AM CDT 5 mg $ Given 04/22/2020 8:37 PM CDT 5 mg oxyCODONE-acetaminophen (PERCOCET) 10-325 MG tablet 1 tablet 1 tablet, Oral, EVERY 4 HOURS PRN, Severe Pain, Starting on 04/19/20 at 1620, Until 04/20/20 at 1051, $ Given 04/20/2020 10:07 AM CDT 1 tablet $ Given 04/20/2020 5:59 AM CDT 1 tablet $ Given 04/20/2020 2:09 AM CDT 1 tablet oxyCODONE-acetaminophen (PERCOCET) 5-325 MG tablet 1 tablet 1 tablet, Oral, EVERY 6 HOURS PRN, Moderate Pain, Severe Pain, For use with ambulation, Starting on 04/19/20 at 1013, Until 04/19/20 at 1620 $ Given 04/19/2020 10:55 AM CDT 1 tablet oxytocin (PITOCIN) 30 units in 500 mL 0.9% sodium chloride infusion ADS Med 1 dose, Starting on Tue04/18/20 at 0730, Until Tue04/18/20 at 0746, Created by cabinet override oxytocin (PITOCIN) 30 units in 500 mL 0.9% sodium chloride infusion 125-1,000 nitin-units/min (125-1,000 mL/hr), Intravenous, CONTINUOUS PRN, after delivery, Starting on Brittni 04/17/20 at 2116, Until Tue04/18/20 at 0654, Infuse first bag POST-DELIVERY at 1,000 nitin-units/min, then decrease rate to 125 nitin-units/min until discontinued. ADMINISTER AFTER THE ANTERIOR SHOULDER OR WITH DELIVERY OF THE PLACENTA. $ New Bag/Syringe 04/18/2020 4:29 AM CDT 125 nitin-units/min 125 mL/hr oxytocin (PITOCIN) 30 units in 500 mL 0.9% sodium chloride infusion 0-20 nitin-units/min (0-20 mL/hr), Intravenous, CONTINUOUS, Starting on Brittni 04/17/20 at 2200, Until Tue04/18/20 at 0740, Titration Parameters: Standard Dose, Indication: Induction/Augmentation of labor, Initiate infusion at: 2 nitin-units/min, Titrate infusion by: 2 nitin-units/min, Titrate every: 30 minutes, To maintain: May increase or decrease infusion to maintain contractions 2-3 minutes apart in the presence of reassuring heart tracing, but not to exceed 5 contractions in 10 minutes or exceed max infusion rate., Decrease Oxytocin rate: May decrease Oxytocin by half current dose in the presence of uterine tachysystole (greater than 5 contractions in 10 minutes) and notify provider. May decrease oxytocin by half current dose at the time of rupture of membranes once verified with provider, Discontinue Oxytocin infusion: Discontinue oxytocin immediately for abnormal or indeterminate status, and notify provider. Rate Change 04/18/2020 12:58 AM CDT 6 nitin-units/min 6 mL/hr Rate Change 04/17/2020 11:46 PM CDT 4 nitin-units/min 4 mL /hr $ New Bag/Syringe 04/17/2020 10:19 PM CDT 2 nitin-units/mi n 2 mL/hr oxytocin (PITOCIN) 30 units in 500 mL 0.9% sodium chloride infusion 125 nitin-units/min (125 mL/hr), Intravenous, CONTINUOUS PRN, post , 24 doses, Starting on Tue04/18/20 at 0741, Until 04/19/20 at 1800 $ New Bag/Syringe 04/19/2020 3:21 PM CDT 125 nitin-units/min 125 mL/hr $ New Bag/Syringe 04/19/2020 10:37 AM CDT 125 nitin-units/ min 125 mL/hr $ New Bag/Syringe 04/19/2020 6:24 AM CDT 125 nitin-units/m in 125 mL/hr pantoprazole (PROTONIX) injection 40 mg 40 mg, Intravenous, DAILY, First dose on Tue04/18/20 at 0900, Until Discontinued, For every 40 mg of pantoprazole mix with 10 mL Normal Saline (final concentration = 4 mg/mL). Inject SLOWLY over 2 min. $ Given 04/19/2020 8:40 AM CDT 40 mg $ Given 04/18/2020 9:22 AM CDT 40 mg phenylephrine 100 mcg/mL injection 1,000 mcg 1,000 mcg, Intravenous, ONCE, 1 dose, On Tue04/18/20 at 0645, Only to be given by a physician or under the direct supervision of a physician. $ Given 04/18/2020 5:03 AM CDT 1,000 mcg polyethylene glycol 3350 (MIRALAX) packet 17 g 17 g, Oral, DAILY, First dose on Tue04/19/20 at 1630, Until Discontinued, Mix in 8 ounces of water, juice, soda, coffee or tea prior to administration, $ Given 04/20/2020 10:14 AM CDT 17 g $ Given 04/19/2020 4:49 PM CDT 17 g polyethylene glycol 3350 (MIRALAX) packet 17 g 17 g, Oral, DAILY, First dose on Tue04/21/20 at 0900, Until Discontinued, Mix in 8 ounces of water, juice, soda, coffee or tea prior to administration $ Given 04/22/2020 8:42 AM CDT 17 g $ Given 04/21/2020 9:08 AM CDT 17 g potassium chloride 20 mEq in 100 mL SW bolus 20 mEq, at 50 mL/hr, Administer over 2 Hours, Intravenous, EVERY 2 HOURS, 2 doses, First dose on Tue04/21/20 at 0800, Last dose on Tue04/21/20 at 1000 $ New Bag/Syringe 04/21/2020 11:00 AM CDT 20 mEq 50 mL/hr $ New Bag/Syringe 04/21/2020 9:08 AM CDT 20 mEq 50 mL/ hr vitamin with iron tablet 1 tablet 1 tablet, Oral, DAILY, 365 doses, First dose on 04/19/20 at 1630, Last dose on 04/18/21 at 0900, $ Given 04/23/2020 9:13 AM CDT 1 tablet $ Given 04/22/2020 8:43 AM CDT 1 tablet $ Given 04/21/2020 9:12 AM CDT 1 tablet propofol (DIPRIVAN) infusion 0-80 mcg/kg/min ? 73.5 kg (0-35.28 mL/hr), Intravenous, CONTINUOUS, Starting on Tue04/18/20 at 0615, Until Tue04/18/20 at 0715, Above RASS goal (agitated): Assess and treat pain first. ??Increase rate by ordered dose unless hemodynamically unstable. At RASS goal and no change in 4 hours: Decrease rate by 10 mcg/kg/min. Below RASS goal (unarousable): Hold infusion until at goal RASS then restart at 50% previous rate. If significant hemodynamic changes, hold or decrease rate and notify physician. Titrate/administer as needed to achieve RASS goal. Note: The CPOT goal should be achieved first with the use of the ordered analgesic medication prior to targeting RASS goal with the sedative. Vial and Tubing should be changed and/or discarded every 12 hours., Titration Parameters: Custom Parameters, Indication: Sedation, Initiate infusion at: 10 mcg/kg/min, Titrate infusion by: 5 mcg/kg/min, Titrate every: 2 minutes, To maintain a: RASS score of -2 = Light sedation, Notify physician if: Unachievable RASS goal despite max dose, Contact physician for: Significant hemodynamic changes, inability to reach RASS goal despite maximal dosage. $ New Bag/Syringe 04/18/2020 5:31 AM CDT 67.93 mcg/kg/min 29.96 mL/hr propofol (DIPRIVAN) infusion 0-80 mcg/kg/min ? 73.5 kg (0-35.28 mL/hr), Intravenous, CONTINUOUS, Starting on Tue04/18/20 at 0730, Until Tue04/18/20 at 1556, Above RASS goal (agitated): Assess and treat pain first. ??Increase rate by ordered dose unless hemodynamically unstable. At RASS goal and no change in 4 hours: Decrease rate by 10 mcg/kg/min. Below RASS goal (unarousable): Hold infusion until at goal RASS then restart at 50% previous rate. If significant hemodynamic changes, hold or decrease rate and notify physician. Titrate/administer as needed to achieve RASS goal. Note: The CPOT goal should be achieved first with the use of the ordered analgesic medication prior to targeting RASS goal with the sedative. Vial and Tubing should be changed and/or discarded every 12 hours., Titration Parameters: Custom Parameters, Indication: Sedation, Initiate infusion at: 10 mcg/kg/min, Titrate infusion by: 5 mcg/kg/min, Titrate every: 2 minutes, To maintain a: RASS score of 0 to -1 = Alert and Calm to Drowsy, Notify physician if: Unachievable RASS goal despite max dose, Contact physician for: Significant hemodynamic changes, inability to reach RASS goal despite maximal dosage. Titration/Asses sment 04/18/2020 12:15 PM CDT 25 mcg/kg/min 11.03 mL/hr Current Rate 04/18/2020 12:14 PM CDT 30 mcg/kg/min 13.23 m L/hr $ New Bag/Syringe 04/18/2020 11:09 AM CDT 30 mcg/kg/min 13 .23 mL/hr propofol (DIPRIVAN) infusion 0-80 mcg/kg/min ? 73.5 kg (0-35.28 mL/hr), Intravenous, CONTINUOUS, Starting on Tue04/18/20 at 1600, Until 04/19/20 at 1008, Above RASS goal (agitated): Assess and treat pain first. ??Increase rate by ordered dose unless hemodynamically unstable. At RASS goal and no change in 4 hours: Decrease rate by 10 mcg/kg/min. Below RASS goal (unarousable): Hold infusion until at goal RASS then restart at 50% previous rate. If significant hemodynamic changes, hold or decrease rate and notify physician. Titrate/administer as needed to achieve RASS goal. Note: The CPOT goal should be achieved first with the use of the ordered analgesic medication prior to targeting RASS goal with the sedative. Vial and Tubing should be changed and/or discarded every 12 hours., Titration Parameters: Custom Parameters, Indication: Sedation, Initiate infusion at: 10 mcg/kg/min, Titrate infusion by: 5 mcg/kg/min, Titrate every: 2 minutes, To maintain a: RASS score of -2 = Light sedation, Notify physician if: Unachievable RASS goal despite max dose, Contact physician for: Significant hemodynamic changes, inability to reach RASS goal despite maximal dosage. $ New Bag/Syringe 04/19/2020 5:48 AM CDT 35 mcg/kg/min 15.44 mL/hr $ New Bag/Syringe 04/18/2020 9:59 PM CDT 35 mcg/kg/min 15. 44 mL/hr Current Rate 04/18/2020 6:11 PM CDT 35 mcg/kg/min 15.44 mL /hr rocuronium (ZEMURON) injection 100 mg 100 mg, Intravenous, ONCE, 1 dose, On Tue04/18/20 at 0645 $ Given 04/18/2020 5:03 AM CDT 100 mg simethicone (MYLICON) chew tablet 160 mg 160 mg, Oral, QID PRN (after meals and at bedtime), Gas Pain, Starting on 04/19/20 at 1620, Until 04/21/20 at 0456, $ Given 04/21/2020 4:34 AM CDT 160 mg simethicone (MYLICON) chew tablet 160 mg 160 mg, Oral, DAILY, First dose (after last modification) on Tue04/21/20 at 0900, Until Discontinued, $ Given 04/23/2020 9:13 AM CDT 160 mg $ Given 04/21/2020 9:13 AM CDT 160 mg simethicone (MYLICON) chew tablet 80 mg 80 mg, Oral, 4 TIMES DAILY PRN, Gas Pain, Starting on Tue04/21/20 at 0454, Until Tue04/23/20 at 1706 $ Given 04/22/2020 8:43 AM CDT 80 mg sodium bicarbonate 8.4% injection ADS Med 1 dose, Starting on Tue04/18/20 at 0614, Until Tue04/18/20 at 0657, Nika Delgado: cabinet override $ Given 04/18/2020 6:57 AM CDT 100 mEq documented in this encounter Active and Recently Administered Medications Times are shown in CDT. Scheduled Medication Order 04/21/2020 04/22/2020 04/23/2020 0.9% NaCl injection 3 mL(Linked Group 1) 3 mL, Intracatheter, EVERY 8 HOURS, First dose on Tue04/19/20 at 2300, Until Discontinued, Flush peripheral IV catheter with 3 mL of normal saline every 8 hours. 0435 ($ Given - Provider: Vandana Keller RN)1616 ($ Given - Provider: Jerrod Yoon, ALICE)2347 ($ Given - Provider: Nazanin Presley, ALICE) 0633 ($ Given - Provider: Nazanin Presley, ALICE)1337 (Not Administered - Provider: Maureen Banerjee RN - Reason: Loss of Access)2140 (Not Administered - Provider: Keren Cosme, ALICE - Reason: Loss of Access) 0544 (Not Administered - Provider: Keren Cosme RN - Reason: Loss of Access)1335 (Not Administered - Provider: Mary Ann Koo - Reason: Loss of Access) acetaminophen (TYLENOL) tablet 1,000 mg 1,000 mg, Oral, EVERY 6 HOURS, First dose on Tue04/20/20 at 1200, Until Discontinued 0038 ($ Given - Provider: Vandana Keller RN)0600 ($ Given - Provider: Vandana Keller RN)1206 ($ Given - Provider: Jerrod Yoon RN)1811 (Not Administered - Provider: Chelo Hudson RN - Reason: Refused-Patient)1954 ($ Given - Provider: Chelo Hudson RN) 0406 ($ Given - Provider: Nazanin Presley RN)0600 (Not Administered - Provider: Nazanin Presley RN - Reason: Per Administration Instructions)1236 ($ Given - Provider: Maureen Banerjee RN)1945 ($ Given - Provider: Keren Cosme RN) 0136 ($ Given - Provider: Keren Cosme RN)0913 ($ Given - Provider: Mary Ann Koo)1406 ($ Given - Provider: Mary Ann Koo) cyanocobalamin (VITAMIN B-12) injection 1,000 mcg 1,000 mcg, Intramuscular, DAILY, 7 doses, First dose on Tue04/18/20 at 0900, Last dose on Tue04/24/20 at 0900 0931 ($ Given - Provider: Jerrod Yoon RN) 0915 ($ Given - Provider: Maureen Banerjee RN) 0914 ($ Given - Provider: Mary Ann Koo) dexamethasone (DECADRON) tablet 40 mg (CANCELED) 40 mg, Oral, DAILY, 4 doses, First dose on Tue04/22/20 at 1230, Last dose on Tue04/25/20 at 0900, Take large doses with meals and take antacids between meals to prevent peptic ulcer 1235 ($ Given - Provider: Maureen Banerjee RN) diphenhydrAMINE (BENADRYL) injection 25 mg (COMPLETED) 25 mg, Intravenous, ONCE, 1 dose, On Tue04/21/20 at 0515, Administer IV at a rate not exceeding 25 mg/min. Can dilute in 5-10 mL NS as needed for patient comfort. 0602 ($ Given - Provider: Vandana Keller RN) docusate sodium (COLACE) capsule 100 mg 100 mg, Oral, 2 TIMES DAILY, 730 doses, First dose on 04/19/20 at 2100, Last dose on 04/19/21 at 0900, 0913 ($ Given - Provider: Jerrod Yoon RN)2109 ($ Given - Provider: Nazanin Presley RN) 0843 ($ Given - Provider: Maureen Banerjee RN)2038 ($ Given - Provider: Keren Cosme, RN) 0913 ($ Given - Provider: Mary Ann oKo) famotidine (PEPCID) tablet 20 mg 20 mg, Oral, 2 TIMES DAILY, 730 doses, First dose on Tue04/19/20 at 2100, Last dose on 04/19/21 at 0900, 0913 ($ Given - Provider: Jerrod Yoon RN)2109 ($ Given - Provider: Nazanin Presley RN) 0843 ($ Given - Provider: Maureen Banerjee RN)203 ($ Given - Provider: Keren Cosme, RN) 0913 ($ Given - Provider: Mary Ann Koo) folic acid (FOLVITE) tablet 1 mg 1 mg, Oral, DAILY, First dose on Tue04/23/20 at 1200, Until Discontinued 1406 ($ Given - Provider: Mary Ann Koo - Comment: pt sleeping) folic acid 1 mg in 0.9% NaCl IV 50 mL IVPB (CANCELED) 1 mg, at 100 mL/hr, Intravenous, DAILY, First dose on Tue04/18/20 at 0900, Until Discontinued, Refrigerate 1317 ($ New Bag/Syringe - Provider: Jerrod Yoon RN)1611 (Stopped - Provider: Jerrod Yoon RN) 0915 ($ New Bag/Syringe - Provider: Maureen Banerjee RN)0945 (Stopped - Provider: Maureen Banerjee RN) furosemide (LASIX) injection 20 mg (COMPLETED) 20 mg, Intravenous, ONCE, 1 dose, On Tue04/21/20 at 0815 0909 ($ Given - Provider: Jerrod Yoon RN) ibuprofen (MOTRIN) tablet 600 mg 600 mg, Oral, EVERY 6 HOURS, First dose on 04/20/20 at 1100, Until Discontinued, Maximum allowable amount = 3200 mg / 24 hours. 0600 ($ Given - Provider: Vandana Keller RN)1206 ($ Given - Provider: Jerrod Yoon RN)1809 ($ Given - Provider: Chelo Hudson RN)2343 ($ Given - Provider: Nazanin Presley RN) 0633 ($ Given - Provider: Nazanin Presley RN)1226 (Not Administered - Provider: Maureen Banerjee RN - Reason: See Comments - Comment: too early)1236 ($ Given - Provider: Maureen Banerjee RN)1945 ($ Given - Provider: Keren Cosme, RN) 0136 ($ Given - Provider: Keren Cosme, RN)0914 ($ Given - Provider: Mary Ann Koo)1408 (Not Administered - Provider: Mary Ann Koo - Reason: Refused-Patient) iron polysaccharides (NIFEREX 150) capsule 150 mg 150 mg, Oral, DAILY, First dose on Tue04/19/20 at 1630, Until Discontinued, 0913 ($ Given - Provider: Jerrod Yoon RN) 0844 ($ Given - Provider: Maureen Banerjee RN) 0914 ($ Given - Provider: Mary Ann Koo) magnesium hydroxide (MILK OF MAGNESIA) suspension 30 mL 30 mL, Oral, DAILY, First dose on Tue04/21/20 at 0900, Until Discontinued, Shake well before using. 0908 ($ Given - Provider: Jerrod Yoon RN) 0842 ($ Given - Provider: Maureen Banerjee RN) 0916 (Not Administered - Provider: Mary Ann Koo - Reason: Refused-Patient) metoclopramide (REGLAN) injection 10 mg (COMPLETED) 10 mg, Intravenous, ONCE, 1 dose, On Tue04/21/20 at 0515, Inject undiluted IV slowly over 1 to 2 minutes. 0602 ($ Given - Provider: Vandana Keller RN) nitrofurantoin monohyd macro crystals (MACROBID) capsule 100 mg 100 mg, Oral, 2 TIMES DAILY WITH MEALS, 14 doses, First dose on Tue04/22/20 at 0945, Last dose on Tue04/28/20 at 1800, Indication for anti-infective therapy: Documented infection, Site of anti-infective therapy: Urine/Genitourinary 1225 (Not Administered - Provider: Maureen Banerjee RN - Reason: Medication not available)1235 ($ Given - Provider: Maureen Banerjee RN)1946 ($ Given - Provider: Keren Cosme, ALICE) 0913 ($ Given - Provider: Mary Ann Koo) polyethylene glycol 3350 (MIRALAX) packet 17 g 17 g, Oral, DAILY, First dose on 04/21/20 at 0900, Until Discontinued, Mix in 8 ounces of water, juice, soda, coffee or tea prior to administration 0908 ($ Given - Provider: Jerrod Yoon RN) 0842 ($ Given - Provider: Maureen Banerjee, ALICE) 0916 (Not Administered - Provider: Mary Ann Koo - Reason: Refused-Patient) potassium chloride 20 mEq in 100 mL SW bolus (COMPLETED) 20 mEq, at 50 mL/hr, Administer over 2 Hours, Intravenous, EVERY 2 HOURS, 2 doses, First dose on Tue04/21/20 at 0800, Last dose on Tue04/21/20 at 1000 0908 ($ New Bag/Syringe - Provider: Jerrod Yoon RN)1058 (Stopped - Provider: Jerrod Yoon RN)1100 ($ New Bag/Syringe - Provider: Jerrod Yoon, ALICE)1315 (Stopped - Provider: Jerrod Yoon RN) vitamin with iron tablet 1 tablet 1 tablet, Oral, DAILY, 365 doses, First dose on 04/19/20 at 1630, Last dose on 04/18/21 at 0900, 0912 ($ Given - Provider: Jerrod Yoon RN) 0843 ($ Given - Provider: Maureen Banerjee, ALICE) 0913 ($ Given - Provider: Mary Ann Koo) simethicone (MYLICON) chew tablet 160 mg 160 mg, Oral, DAILY, First dose (after last modification) on Tue04/21/20 at 0900, Until Discontinued, 0913 ($ Given - Provider: Jerrod Yoon RN) 1225 (Not Administered - Provider: Maureen Banerjee, ALICE - Reason: Refused-Patient) 0913 ($ Given - Provider: Mary Ann Koo) Continuous Medication Order 04/21/2020 04/22/2020 04/23/2020 magnesium sulfate 40 g in 1000 mL infusion (CANCELED) 2 g/hr (50 mL/hr), Intravenous, CONTINUOUS, Starting on 04/20/20 at 1500, Until Tue04/21/20 at 1520 0934 ($ New Bag/Syringe - Provider: Jerrod Yoon RN)1521 (Stopped - Provider: Jerrod Yoon RN) PRN Medication Order 04/21/2020 04/22/2020 04/23/2020 0.9% NaCl flush bag at 3 mL/hr, 250 mL, CONTINUOUS PRN, Starting on Tue04/18/20 at 0904, Until Tue04/23/20 at 1706, FLUSH BAG, Use for: IVPB flush 0.9% NaCl injection 1-10 mL(Linked Group 1) 1-10 mL, Intracatheter, PRN, Other, peripheral line flush, Starting on 04/19/20 at 2223, Until Tue04/23/20 at 1706, Flush peripheral IV catheter with 1-10 mL of normal saline before and after medications and prn to clear blood from the line or to verify patency. acetaminophen (TYLENOL) suppository 650 mg(Linked Group 2) 650 mg, Rectal, ONCE PRN, prior to blood product transfusion, 1 dose, Starting on Tue04/19/20 at 2224, Until Tue04/23/20 at 1706, Give rectally if unable to take acetaminophen orally. To be given prior to blood product transfusion acetaminophen (TYLENOL) tablet 650 mg(Linked Group 2) 650 mg, Oral, ONCE PRN, prior to blood product transfusion, 1 dose, Starting on Tue04/19/20 at 2224, Until Tue04/23/20 at 1706, To be given prior to blood product transfusion benzocaine-menthol (DERMOPLAST) spray Topical, 3 TIMES DAILY PRN, perianal pain, Starting on Tue04/19/20 at 1620, Until Tue04/23/20 at 1706, . WASTE DISPOSAL INSTRUCTION: Send to Pharmacy for Disposal. . , calcium carbonate (TUMS) chew tablet 2 tablet 2 tablet, Oral, EVERY 4 HOURS PRN, GI Upset, Starting on 04/19/20 at 1620, Until Tue04/23/20 at 1706, calcium gluconate 10 % injection 1 g 1 g, Intravenous, PRN, magnesium overdose, Starting on 04/20/20 at 1421, Until Tue04/23/20 at 1706, Watch for signs and symptoms of Magnesium Sulfate toxicity: A) Magnesium Sulfate level greater than 7. B) Absence of reflexes. C) Respirations less than 10-12 per minute. diphenhydrAMINE (BENADRYL) capsule 25 mg 25 mg, Oral, AT BEDTIME PRN, Insomnia, Starting on 04/19/20 at 1620, Until Tue04/23/20 at 1706, diphenhydrAMINE (BENADRYL) capsule 25 mg 25 mg, Oral, EVERY 6 HOURS PRN, Itching, Starting on 04/19/20 at 1620, Until Tue04/23/20 at 1706, diphenhydrAMINE (BENADRYL) capsule 25 mg(Linked Group 3) 25 mg, Oral, ONCE PRN, Itching, prior to blood product transfusion, 1 dose, Starting on 04/19/20 at 2224, Until Tue04/23/20 at 1706, To be given prior to blood product transfusion. diphenhydrAMINE (BENADRYL) injection 25 mg(Linked Group 3) 25 mg, Intravenous, ONCE PRN, Itching, prior to blood product transfusion, 1 dose, Starting on 04/19/20 at 2224, Until Tue04/23/20 at 1706, To be given prior to blood product transfusion. Give IV if unable to take diphenhydramine orally lanolin topical Topical, PRN, Sore or cracked nipples., Starting on 04/19/20 at 1620, Until Tue04/23/20 at 1706, Apply purified Lanolin to sore or cracked nipples, if needed. May keep at bedside., naloxone (NARCAN) injection 0.2 mg 0.2 mg, Intravenous, PRN, Other, If unable to arouse patient or if respiratory depression is present., 4 doses, Starting on 04/19/20 at 1620, Until Tue04/23/20 at 1706, Mix 0.4 mg Naloxone in 9 mL Normal Saline for slow IV push. Administer dilute Naloxone solution IV very slowly (5 mL over 2 minutes) while observing the patient response and titrating to effect. If no response, call Rapid Response, continue IV Naloxone at the same rate up to a total of 0.8 mg or 20 mL of diluted Naloxone, and notify physician immediately. ondansetron (disintegrating) (ZOFRAN ODT) tablet 4 mg 4 mg, Oral, EVERY 6 HOURS PRN, Nausea/Vomiting, Starting on 04/19/20 at 1620, Until Tue04/23/20 at 1706, Allow tablet to dissolve on the tongue, oxyCODONE (immediate release) (ROXICODONE) tablet 10 mg 10 mg, Oral, EVERY 4 HOURS PRN, Severe Pain, Starting on 04/20/20 at 1050, Until Tue04/23/20 at 1706 0038 ($ Given - Provider: Vandana Keller RN)0434 ($ Given - Provider: Vandana Keller RN)1620 ($ Given - Provider: Jerrod Yoon RN) 0918 ($ Given - Provider: Mary Ann Koo)1407 ($ Given - Provider: Mary Ann Koo) oxyCODONE (immediate release) (ROXICODONE) tablet 5 mg 5 mg, Oral, EVERY 4 HOURS PRN, Moderate Pain, Starting on 04/20/20 at 1050, Until Tue04/23/20 at 1706 2113 ($ Given - Provider: Nazanin Presley RN) 0406 ($ Given - Provider: Nazanin Presley RN)0851 ($ Given - Provider: Maureen Banerjee RN)1246 ($ Given - Provider: Maureen Banerjee, ALICE)1635 ($ Given - Provider: Vandana Licona RN)2037 ($ Given - Provider: Keren Cosme, ALICE) 0036 ($ Given - Provider: Keren Cosme, ALICE)0456 ($ Given - Provider: Keren Cosme, ALICE) simethicone (MYLICON) chew tablet 160 mg (CANCELED) 160 mg, Oral, QID PRN (after meals and at bedtime), Gas Pain, Starting on 04/19/20 at 1620, Until Tue04/21/20 at 0456, 0434 ($ Given - Provider: Vandana Keller RN) simethicone (MYLICON) chew tablet 80 mg 80 mg, Oral, 4 TIMES DAILY PRN, Gas Pain, Starting on 04/21/20 at 0454, Until Tue04/23/20 at 1706 0843 ($ Given - Provider: Maureen Banerjee RN) Linked Groups Order Group 1: SALINE LOCK, INSERT AND MAINTAIN (CANCELED) Routine, CONTINUOUS, Starting on 04/19/20 at 2230, Until Specified, New collection And 0.9% NaCl injection 3 mLJump to med 3 mL, Intracatheter, EVERY 8 HOURS, First dose on 04/19/20 at 2300, Until Discontinued, Flush peripheral IV catheter with 3 mL of normal saline every 8 hours. And 0.9% NaCl injection 1-10 mLJump to med 1-10 mL, Intracatheter, PRN, Other, peripheral line flush, Starting on 04/19/20 at 2223, Until Tue04/23/20 at 1706, Flush peripheral IV catheter with 1-10 mL of normal saline before and after medications and prn to clear blood from the line or to verify patency. Group 2: acetaminophen (TYLENOL) tablet 650 mgJump to med 650 mg, Oral, ONCE PRN, prior to blood product transfusion, 1 dose, Starting on 04/19/20 at 2224, Until Tue04/23/20 at 1706, To be given prior to blood product transfusion Or acetaminophen (TYLENOL) suppository 650 mgJump to med 650 mg, Rectal, ONCE PRN, prior to blood product transfusion, 1 dose, Starting on 04/19/20 at 2224, Until Tue04/23/20 at 1706, Give rectally if unable to take acetaminophen orally. To be given prior to blood product transfusion Group 3: diphenhydrAMINE (BENADRYL) capsule 25 mgJump to med 25 mg, Oral, ONCE PRN, Itching, prior to blood product transfusion, 1 dose, Starting on 04/19/20 at 2224, Until Tue04/23/20 at 1706, To be given prior to blood product transfusion. Or diphenhydrAMINE (BENADRYL) injection 25 mgJump to med 25 mg, Intravenous, ONCE PRN, Itching, prior to blood product transfusion, 1 dose, Starting on 04/19/20 at 2224, Until Tue04/23/20 at 1706, To be given prior to blood product transfusion. Give IV if unable to take diphenhydramine orally documented in this encounter Care Teams Supervisor Industrial Garment Relationship Specialty Start Date End Date Alejandro Blevins MD [address] [place] [id number] PCP - General Family Medicine 12/07/19 documented as of this encounter
--- OUTSIDE RECORDS SUMMARY | 2024-07-11 05:38 | XMS_ITS | Encounter Summary ---
Author Organization [facility] Address [address] [place] [address] Care Team Providers Care Pipe Stem Aligner Name Role Phone Alejandro Blevins MD Primary Care Provider [phone] Reason for Visit * Reason Onset Date Comments Results 01/23/2020 Encounter Details Date Type Department Care Team (Late st Contact Info) Description 01/23/2020 Telephone [facility]ALUATION UNIT [address] [place] [address] Annabella Johnson MD [address] [place] [address] Results Social History Tobacco Use Types Packs/Day [...] encounter Miscellaneous Notes * Telephone Encounter - Annabella Johnson MD - 01/23/2020 4:57 PM CDT Called patient to confirm that her low-lying placenta on ultrasound had been discussed with her andto make sure she knew she should be on pelvic rest. Pt expressed understanding and said it had beendiscussed with her. Annabella Johnson MD 01/23/2020 4:58 PM documented in this encounter Plan of Treatment Not on file documented as of this encounter Visit Diagnoses Not on filedocumented in this encounter Care Teams Pipe Stem Aligner Relationship Specialty Start Date End Date Alejandro Blevins MD [address] [place] [phone] PCP - General Family Medicine 12/07/19 documented as of this encounter
--- OUTSIDE RECORDS SUMMARY | 2024-07-11 05:38 | XMS_ITS | Encounter Summary ---
Author Organization [facility] Address [address] [place] [address] Care Team Providers Care Radio Aerial Installer Name Role Phone Alejandro Blevins MD Primary Care Provider [phone] Reason for Visit * Reason Onset Date Comments Pre Appointment Management 02/05/2020 Encounter Details Date Type Department Care Team (Late st Contact Info) Description 02/05/2020 Telephone [facility]/ EVALUATION UNIT [address] [place] [address] Radha Patino RDMS Pre Appointment Management Social History Tobacco Use [...] encounter Miscellaneous Notes * Telephone Encounter - Radha Patino RDMS - 02/05/2020 3:47 PM CDT Message left on voicemail informing patient of new visitor policy (one visitor) for outpatient appointments due to COVID 19 pandemic. Patient also instructed to call before coming to appointment if she has fever, cough, shortness of breath, nausea, vomiting, diarrhea, loss of smell or taste, or hasbeen around anyone with these symptoms. Also notified her we will be doing screening at the door. Left callback of [phone]. documented in this encounter Plan of Treatment Not on file documented as of this encounter Visit Diagnoses Not on filedocumented in this encounter Care Teams Radio Aerial Installer Relationship Specialty Start Date End Date Alejandro Blevins MD [address] [place] [phone] PCP - General Family Medicine 12/07/19 documented as of this encounter
--- OUTSIDE RECORDS SUMMARY | 2024-07-11 05:38 | XMS_ITS | Encounter Summary ---
Author Organization [facility] Address [address] [place] [address] Care Team Providers Care Petrophysical Engineer Name Role Phone Alejandro Blevins MD Primary Care Provider [phone] Encounter Details Date Type Department Care Team (Latest Contact Info) Description 12/20/2019 Travel Social History Tobacco Use Types Packs/Day [...] have Coronavirus / COVID-19? Unable to assess 12/20/2019 8:50 AM CDT documented as of this encounter [...] No 12/07/2019 documented as of this encounter Plan of Treatment Not on file documented as of this encounter Visit Diagnoses Not on filedocumented in this encounter Care Teams Petrophysical Engineer Relationship Specialty Start Date End Date Alejandro Blevins MD [address] [place] [phone] PCP - General Family Medicine 12/07/19 documented as of this encounter
--- OUTSIDE RECORDS SUMMARY | 2024-07-11 05:38 | XMS_ITS | Encounter Summary ---
Author Organization [facility] Address [address] [place] [address] Care Team Providers Care Medical Pathologist Name Role Phone Alejandro Blevins MD Primary Care Provider [phone] Reason for Visit * Reason Onset Date Comments UTI 01/26/2020 Encounter Details Date Type Department Care Team (Late st Contact Info) Description 01/26/2020 Telephone HC PHYS OB [address] [place] [address] Asa Louis MD [address] [place] [address] UTI Social History Tobacco Use Types Packs/Day Years [...] encounter Miscellaneous Notes * Telephone Encounter - Asa Louis MD - 01/26/2020 1:21 PM CDT Pt informed by phone of UTI and Rx for macrobid at pharmacy. No questions. Asa Louis MD 01/26/2020 1:21 PM documented in this encounter Plan of Treatment Not on file documented as of this encounter Visit Diagnoses Not on filedocumented in this encounter Care Teams Medical Pathologist Relationship Specialty Start Date End Date Alejandro Blevins MD [address] [place] [address] PCP - General Family Medicine 12/07/19 documented as of this encounter
--- OUTSIDE RECORDS SUMMARY | 2024-07-11 05:38 | XMS_ITS | Encounter Summary ---
Author Organization [facility] Address [address] [place] [address] Care Team Providers Care Instructor Kindergarten Name Role Phone Alejandro Blevins MD Primary Care Provider [phone] Reason for Visit * Reason Onset Date Comments Reminder Call 01/15/2020 Encounter Details Date Type Department Care Team (Late st Contact Info) Description 01/15/2020 Telephone [facility] MATERNAL/ EVALUATION UNIT [address] [facility] [facility] [place] [address] Gillian Orozco, RN Reminder Call Social History [...] Telephone Encounter - Gillian Orozco RN - 01/15/2020 12:49 PM CDT Patient updated on COVID-19 visitor policy-NO Visitors allowed at this time Encourages Hillary Smalls to wear face covering to her appointment. Patient screening: In the past two weeks have you experienced Fever?: no Cough?: no Shortness of Breath?: no Nausea?: no Vomitting?: no Diarrhea?: no Loss of smell or taste?: no Muscle pain? no What is your occupation?: n/a Do you work with anyone who tested postive for COVID-19?: no Are you concerned that you may have or been exposed to COVID-19?: no Have you been around around anyone with a fever/cough/shortness of breath?: no Nausea/vomitting/diarrhea?: no Also notified her we will be doing screening at the door. She voiced understanding and agreement. documented in this encounter Plan of Treatment Not on file documented as of this encounter Visit Diagnoses Not on filedocumented in this encounter Care Teams Instructor Kindergarten Relationship Specialty Start Date End Date Alejandro Blevins MD [address] [place] [phone] PCP - General Family Medicine 12/07/19 documented as of this encounter
--- OUTSIDE RECORDS SUMMARY | 2024-07-11 05:38 | XMS_ITS | Encounter Summary ---
Author Organization [facility] Address [address] [place] [address] Care Team Providers Care Pharmacy Operations Specialist Name Role Phone Alejandro Blevins MD Primary Care Provider [phone] Reason for Visit * Reason Onset Date Comments Scheduling 12/11/2019 Encounter Details Date Type Department Care Team (Late st Contact Info) Description 12/11/2019 Telephone [facility] MATERNAL/ EVALUATION UNIT [address] [facility] [place] [address] Tiffanie Whitney Scheduling Social History Tobacco Use [...] * Telephone Encounter - Tiffanie Whitney - 12/11/2019 10:50 AM CDT Called the number in [employer] left a VM with the patients upcoming appointment and date also the visitor policy and mask requirement. documented in this encounter Plan of Treatment Not on file documented as of this encounter Visit Diagnoses Not on filedocumented in this encounter Care Teams Pharmacy Operations Specialist Relationship Specialty Start Date End Date Alejandro Blevins MD [address] [place] [phone] PCP - General Family Medicine 12/07/19 documented as of this encounter
--- OUTSIDE RECORDS SUMMARY | 2024-07-11 05:38 | XMS_ITS | Encounter Summary ---
Author Organization [facility] Address [address] [place] [address] Care Team Providers Care Reimbursement Rep Name Role Phone Alejandro Blevins MD Primary Care Provider [phone] Encounter Details Date Type Department Care Team (Latest Contact Info) Description 12/19/2019 Travel Social History Tobacco Use Types Packs/Day [...] have Coronavirus / COVID-19? Unable to assess 12/19/2019 3:55 PM CDT documented as of this encounter [...] on filedocumented in this encounter Care Teams Reimbursement Rep Relationship Specialty Start Date End Date Alejandro Blevins MD [address] [place] [phone] PCP - General Family Medicine 12/07/19 documented as of this encounter
--- OUTSIDE RECORDS SUMMARY | 2024-07-11 05:38 | XMS_ITS | Encounter Summary ---
Author Organization [facility] Address [address] [place] [address] Care Team Providers Care Chairman Name Role Phone Alejandro Blevins MD Primary Care Provider [phone]- [phone] Reason for Visit * Reason Onset Date Comments Results 01/25/2020 Encounter Details Date Type Department Care Team (Late st Contact Info) Description 01/25/2020 [facility] [address] [facility] [place] [address] Annabella Johnson MD [address] [place] [address] Results Social History Tobacco Use [...] Telephone Encounter - Annabella Johnson MD - 01/25/2020 10:31 AM CDT Attempted to call patient regarding urine culture positive for E Coli. No answer. Voicemail left asking patient to call clinic back. Annabella Johnson MD 01/25/2020 10:32 AM documented in this encounter Plan of Treatment Not on file documented as of this encounter Visit Diagnoses Not on filedocumented in this encounter Care Teams Chairman Relationship Specialty Start Date End Date Alejandro Blevins MD [address] [place] [phone] PCP - General Family Medicine 12/07/19 documented as of this encounter
--- OUTSIDE RECORDS SUMMARY | 2024-07-11 05:38 | XMS_ITS | Encounter Summary ---
Author Organization [facility] Address [address] [place] [address] Care Team Providers Care Offshore Wind Operations Manager Name Role Phone Alejandro Blevins MD Primary Care Provider [phone]- [phone] Encounter Details Date Type Department Care Team (Latest Contact Info) Description 01/16/2020 Travel Social History Tobacco Use Types Packs/Day [...] have Coronavirus / COVID-19? Unable to assess 01/16/2020 1:19 PM CDT documented as of this encounter [...] on filedocumented in this encounter Care Teams Offshore Wind Operations Manager Relationship Specialty Start Date End Date Alejandro Blevins MD [address] [place] [phone] PCP - General Family Medicine 12/07/19 documented as of this encounter
--- OUTSIDE RECORDS SUMMARY | 2024-07-11 05:38 | XMS_ITS | Encounter Summary ---
Author Organization [facility] Address [address] [place] [address] Care Team Providers Care Cash Poster Name Role Phone Alejandro Blevins MD Primary Care Provider [phone]- [phone] Reason for Visit * Reason Onset Date Comments Pre Appointment Management 01/21/2020 Encounter Details Date Type Department Care Team (Late st Contact Info) Description 01/21/2020 Telephone [facility] MATERNAL/ EVALUATION UNIT [address] [facility] [facility] [place] [address] Cintia Messina Pre Appointment Management Social History Tobacco Use [...] encounter Miscellaneous Notes * Telephone Encounter - Cintia Messina - 01/21/2020 1:17 PM CDT Message left on voicemail informing patient of visitor policy (1 visitor 18+) for outpatient appointments due to COVID 19 pandemic. Patient also instructed to call before coming to appointment if shehas fever, cough, shortness of breath, nausea, vomiting, diarrhea, loss of smell or taste, or has been around anyone with these symptoms. Also notified her we will be doing screening at the [facility]. Left callback of [phone]. documented in this encounter Plan of Treatment Not on file documented as of this encounter Visit Diagnoses Not on filedocumented in this encounter Care Teams Cash Poster Relationship Specialty Start Date End Date Alejandro Blevins MD [address] [place] [phone] PCP - General Family Medicine 12/07/19 documented as of this encounter
--- OUTSIDE RECORDS SUMMARY | 2024-07-11 05:38 | XMS_ITS | Encounter Summary ---
Author Organization [facility] Address [address] [place] [address] Care Team Providers Care Special Forces Senior Sergeant Name Role Phone Alejandro Blevins MD Primary Care Provider [phone]- [phone] Encounter Details Date Type Department Care Team (Latest Contact Info) Description 01/23/2020 Travel Social History Tobacco Use Types Packs/Day [...] on filedocumented in this encounter Care Teams [employer] Senior Sergeant Relationship Specialty Start Date End Date Alejandro Blevins MD [address] [place] [phone] PCP - General Family Medicine 12/07/19 documented as of this encounter
--- OUTSIDE RECORDS SUMMARY | 2024-07-11 05:38 | XMS_ITS | Encounter Summary ---
Author Organization [facility] Address [address] [place] [address] Care Team Providers Care Teletype Or Varitype Keyboard Operator Name Role Phone Alejandro Belvins MD Primary Care Provider [phone] Encounter Details Date Type Department Care Team (Latest Contact Info) Description 12/11/2019 Travel Social History Tobacco Use Types Packs/Day [...] on filedocumented in this encounter Care Teams Teletype Or Varitype Keyboard Operator Relationship Specialty Start Date End Date Alejandro Blevins MD [address] [place] [phone] PCP - General Family Medicine 12/07/19 documented as of this encounter
--- OUTSIDE RECORDS SUMMARY | 2024-07-11 05:38 | XMS_ITS | Encounter Summary ---
Author Organization [facility] Address [address] [place] [address] Care Team Providers Care Sociology Professor Name Role Phone Alejandro Blevins MD Primary Care Provider [phone] Reason for Visit * Reason Comments Vaginal Bleeding * Auth/Cert Specialty Diagnoses / Procedures Referred By Contac t Referred To Contact Referral ID Status Reason Start Date Expiration Date Visits Re quested Visits Authorized [id number] 1 1 Encounter Details Date Type Department Care Team (Late st Contact Info) Description 04/18/2020 2:40 AM CDT - 04/18/2020 4:10 AM CDT Surgery [facility] [address] [place] [address] Marisa James MD [address] [facility] [address] [place] [address] SECTION (EMERGENCY) Surgery Details Date/Time Status Location OR Service Patient Class Case Class Case Type Trauma Case? 04/18/2020 2:40 AM Posted [facility] LD OR 1 Obstetrics Inpatient Panel 1 Procedure LRB Anes Op Region Wound Class Comments SECTION (EMERGENCY) C lean Surgeon Surgeon Role Service Panel Afsaneh Sandoval MD Resident - Assisting 1 Marisa James MD Primary Obstetrics 1 Mayuri Norton MD Assisting Obstetrics 1 documented in this encounter Social History Tobacco Use Types Packs/Day Years [...] Sign Reading Time Taken Comments Blood Pressure 112/59 04/18/2020 4:09 AM CDT Pulse 62 04/18/2020 2:17 AM CDT Temperature 36.3 ??C (97.4 ??F) 04/18/2020 2:17 AM CD T Respiratory Rate 20 04/18/2020 2:17 AM CDT Oxygen Saturation 99% 04/17/2020 10:28 PM CDT Inhaled Oxygen Concentration - - Weight 73.5 kg (162 lb) 04/17/2020 8:26 PM CDT Height 157.5 cm (5' 2 ) 04/17/2020 8:26 PM CDT Body Mass Index 30 04/23/2020 4:55 [...] were sent to pharmacy for her to molded goods spot picker. Patient knows to call and schedule 1 week and 6 week follow up visit. Aware to schedule appointment with hematology also. No further concerns. * Shira Gracia MD - 04/22/2020 3:40 PM CDT delivery specialist Discharge Summary 05/05/2020, 8:59 AM Date of [...] nearest hospital and then was transfered to [facility]. Patient has continued to have some vaginal bleeding, but it is much less. Feels some mild contractions.She has not been seen in [facility] in several months due to transportation [...] Information for the patient's : Socorro Smalls [[id number]] Date of 04/18/2020 Time of : 2:53 AM Sex: Female Weight: 2640 g (5 lb 13.1 oz) (1 min): 6 (5 min): 7 (10 min): 8 Information for the patient's : Santiago Smalls [[id number]] Date of 04/18/2020 Time of : 2:54 AM Sex: Male Weight: 2640 g (5 lb 13.1 oz) (1 min): 5 (5 min): 8 (10 min): Course: Her course was complicated. Please seen hospital course above for full details. Patient is bottle feeding. She is undecided for contraception. Results: Recent Labs Component Name 04/21/20 0641 12/08/19 0301 12/08/19 0301 ABO - - A RHTYPE [...] Comments Your discharge diagnosis is: delivery delivered [030635] No special diet needed Resume your normal home diet as tolerated. Eat well-balanced meals that include foods from all of the food groups. Drink plenty of fluids It is important that you stay well hydrated. You should drink at least eight to ten 8-ounce glassesof water per day. Nothing per vagina For 6 weeks Light activity While on narcotics (Percocet or Blair) Do not drive Until able to slam on the brakes comfortably and completely off narcotic pain medication (Percocet or Blair) No heavy lifting Do not lift anything [...] itching Take Benadryl for relief of itching. Jsce-elg-bhtrfdh medication Use an abdominal binder or belly band for comfort as needed and use compression stockings (available at pharmacies or online) for leg swelling. Shira Gracia MD 05/05/2020 8:59 AM documented in this encounter Discharge Instructions * Discharge Instructions* Mary Ann Koo - 04/23/2020 2:00 PM CDT Follow up with your Hydrotel Operator in 1 week after discharge DELIVERED MOTHER DISCHARGE INSTRUCTIONS Refer to the Booklet given during your stay for more information. Please contact your block stacker for the followin. Any burning or itching [...] example: your cell phone and cell phone human resources talent manager. PLEASE REMEMBER: 1. Always place your infant [...] to be indicated. JAYLYN Vallejo Office Ascom UNITY OUTREACH MANAGER * Angela Hauser Amy - 04/23/2020 11:22 AM CDT Problem: Oral Intake: Inadequate oral intake Goal: Total intake will meet estimated nutrient needs Description: Estimated Needs: KCAL: 3025-6426(20-25 kcal/kg IBW) Protein (g): 60-100(1.2-2 gm/kg IBW) [...] Foic acid . She is pumping for twins in NICU. Continue to follow at [...] PP LABS: Recent Labs Component Name 04/23/20 0601 04/22/20 0928 04/21/20 0641 SODIUM 135* 135* 132* 133* POTASSIUM [...] chew tablet 160 mg, Oral, QDAY Tdap (dfaapdr-hgaqfoxfev-tfojt pertussis) (BOOSTRIX) (7y+) injection 0.5 mL, Intramuscular, [...] nutrient needs Nutrition Goal Timeframe: Ongoing Angela Hauser, DTR 04/23/2020 11:22 AM Ascom [id number] * [...] 7. Limited PNC 1. Limited visits with [facility] (2) secondary to transportation issues 2. [...] documentation and agreewith history and physical and devops engineer of my plan, and I had vgif-uz-brok time with this patient. DC instructions given. Followup as above. * Keren Cosme, ALICE - 04/23/2020 5:46 AM CDT VSS. Assessment [...] care. They recommend high dose steroids for penitentiary effect of increased platelets. The rise in [...] 100 mg 100 mg Oral BID WC Shira Gracia MD 100 mg at 04/23/20 0913 ??? [...] QDAY Mayuri Norton MD 1 tablet at 04/23/20 09 ??? simethicone (MYLICON) chew tablet 160 mg 160 mg Oral QDAY Mayuri Norton MD 160 mg at 04/23/20 09 ??? simethicone (MYLICON) chew tablet 80 mg 80 mg Oral 4X/day PRN Mayuri Norton MD 80 mg at 04/22/20 0843 ??? Tdap (gioegrd-kzmvtohzwt-yxqkf pertussis) (BOOSTRIX) (7y+) injection 0.5 mL 0.5 [...] no rhonchi Cardiovascular: pulses equal, S1 and V9rduho, no S3, no S4, no rubs no [...] data: Recent Labs Component Name 04/23/20 0601 04/22/20 0928 04/21/20 0445 04/20/20 1408 WBC 15.8* 13.3* 22.9* [...] Component Name 04/23/20 0601 04/22/20 0928 04/21/20 0641 SODIUM 135* 135* 132* 133* POTASSIUM [...] IVIG that patient received has transient response. medical oncology physician gyn team is concerned about wound healing. Noted that the MFM/Ob team doesn't want to proceed with high dose steroids. Monitor platelet count Transfuse platelets if bleeding to maintain count greater than 50,000 Recommended outpatient follow-up with her stone rigger within one week of discharge UTI secondary [...] 1 gram/kg per day infusion as daily [id number]. Last dose of Solu-Medrol on 04/20/2020. Has had a good response with normalization ofher platelet count currently. However, responses to Solu-Medrol and IVIG may be transient. Recommend dexamethasone 40 mg orally daily x4 days with GI prophylaxis - order canceled by the J2EE ANDROID DEVELOPER team . ? No evidence of hemolysis [...] need to be monitored by her outpatient stone rigger on discharge. ?? 6.?Untreated HCV infection,??mildly deranged [...] agalactiae in urine culture-management as per the J2EE ANDROID DEVELOPER team. On Macrobid. ?? Discussed with the patient, mother and her significant other at the bedside. Anticipate discharge later today. I have asked her to follow-up with her local stone rigger upon discharge within 1 week to monitor [...] Precautions: Bed Mobility: Supine to Sit: Modified [place] Transfers: Sit to Stand: Complete [place] Stand to Sit: Complete [place] Mobility: Distance Ambulated: 300 FEET Ambulation: Assistive Device: None(refused gait belt) Ambulation: Level of Assistance: Complete [place] Ambulation: Gait Deviations: Antalgic Balance: Sitting - [...] note serves as the discharge summary. Marilu Mohr PT, DPT #[id number] * Mila Mohr PT - 04/22/2020 2:53 PM CDT Problem: [...] supports and substance tx resources previously discussed. GERALD reached out to Irlanda Lara ([phone]; fax [phone]; ) who indicated DCFS has taken custody [...] afternoon follow-up will be with GERALD Luo ([id number]) and GERALD explained a copy of a [...] 100 mg 100 mg Oral BID WC Shira Gracia MD 100 mg at 04/22/20 1235 ??? [...] 80 mg at 04/22/20 0843 ??? Tdap (rmfapvc-ccfnkzdwqs-judbz pertussis) (BOOSTRIX) (7y+) injection 0.5 mL 0.5 [...] she will not be compliant with medication. medical oncology physician gyn team is concerned about wound healing. Noted that the MFM/Ob team doesn'twant to proceed with high dose steroids. Monitor platelet count Transfuse platelets if bleeding to maintain count greater than 50,000 Recommended outpatient follow-up with her local stone rigger Untreated UTI: Discussed with primary team ID [...] Monitor for vaginal bleeding as per the smoke chaser team. Continue oral iron, parenteral B12, folic [...] estimated nutrient needs Description: Estimated Needs: KCAL: 1847-9640(20-25 kcal/kg IBW) Protein (g): 60-100(1.2-2 gm/kg IBW) [...] 7. Limited PNC 1. Limited visits with [facility] (2) secondary to transportation issues 2. [...] documentation and agreewith history and physical and devops engineer of my plan, and I had gnbz-wo-mviz time with this patient. Check labs. Possible [...] box [address], sinus rhythm per clerk television production #[id number]. Rooming in and bonding noted. Newborns formula [...] baby nursery. [facility] Bedside report given to Connie JENKINS [facility]com- [id number]. Telemetry notified that Hillary is moving to room 614 & the next nurse name & ascom given to her. Hillary reports passing flatus x 2 today. Assessmentunchanged from flow sheet. Tolerating clears had chicken broth/jello/apple juice & water. No nausea or vomiting. * Genevieve Reece MSW - 04/21/2020 11:32 AM CDT [...] 04/21/2020 0715 Gross per 24 hour Intake 2022.55 ml Output 5175 ml Net -3152.45 ml [...] RN - 04/21/2020 7:57 AM CDT 04/21/20 0753 Clinician Communication/Critical Test Notification Reason: Lab Results (calcium 6.9 this morning/can we d/c continuous pulse ox) Name of Clinician Notified: Dr. Gracia Role: OB Resident Notification Method: Called/Phoned ([id number]) Action Orders Received (can d/c continuous pulse [...] 7. Limited PNC 1. Limited visits with [facility] (2) secondary to transportation issues 2. [...] documentation and agreewith history and physical and devops engineer of my plan, and I had lcbp-rh-hzrz time with this patient. * Mayuri Norton MD - 04/21/2020 4:46 AM CDT PGY2 TECHNICAL SALES ENGINEER Progress Note In to see patient. She [...] 1042 04/19/20 0351 04/18/20 0537 04/18/20 0413 04/17/202056 SODIUM 135* 137 138 139 138 POTASSIUM [...] 8:51 AM Subjective: Hillary Smalls moved to PSCU yesterday following extubation. Overall, doing well. Very [...] palpable cords Data: Recent Labs Component Name 04/19/208 04/19/20 1344 04/19/20 0351 WBC 22.0* 19.8* [...] 6. Limited PNC 1. Limited visits with [facility] (2) secondary to transportation issues 2. [...] Ba RN - 04/19/2020 7:34 PM CDT 04/19/20 6457 Clinician Communication/Critical Test Notification Reason: Condition Update [...] time. Encourage incentive spirometer while awake. * Westley Jenn, PT - 04/19/2020 2:07 PM CDT Physical [...] Name 04/19/20 0351 04/18/20 0537 04/18/20 0413 04/17/202056 SODIUM 137 138 139 138 POTASSIUM 4.2 [...] BP: Pulse: 73 71 72 70 Resp: 20 20 20 Temp: 97.7 ??F (36.5 ??C) 97.5 ??F [...] 04/19/20 0500 97.5 ??F (36.4 ??C) 71 -- 04/19/20 0400 97.7 ??F (36.5 ??C) 73 20 -- 04/19/20 0300 98.1 ??F (36.7 ??C) 75 -- 04/19/20 0200 98.4 ??F (36.9 ??C) 76 -- 04/19/20 0109 98.6 ??F (37 ??C) 77 -- 04/19/20 0100 98.6 ??F (37 ??C) [...] 04/18/20 1715 98.4 ??F (36.9 ??C) 85 20 -- 04/18/20 1703 -- 93 -- -04/18/20 1700 98.4 ??F (36.9 ??C) 83 -- 04/18/20 1645 98.4 ??F (36.9 ??C) 84 -- 04/18/20 1630 98.4 ??F (36.9 ??C) 82 -- 04/18/20 1615 98.4 ??F (36.9 ??C) 90 -- 04/18/20 1600 98.2 ??F (36.8 ??C) 93 -- 04/18/20 1545 98.4 ??F (36.9 ??C) 91 -- 04/18/20 1530 98.6 ??F (37 ??C) 87 -- 04/18/20 1515 98.4 ??F (36.9 ??C) 87 -- 04/18/20 1500 98.6 ??F (37 ??C) 83 -- 04/18/20 1445 98.6 ??F (37 ??C) 82 -- 04/18/20 1430 98.6 ??F (37 ??C) [...] 1000 97.5 ??F (36.4 ??C) (!) 117 19 -- 04/18/20 0945 97.3 ??F (36.3 ??C) (!) 119 20 -- 04/18/20 0930 97.2 ??F (36.2 ??C) (!) 132 20 -- 04/18/20 0915 97.2 ??F (36.2 ??C) (!) 137 20 -- 04/18/20 0900 96.8 ??F (36 ??C) (!) 137 20 -- 04/18/20 0845 96.6 ??F (35.9 ??C) (!) 134 20 -- 04/18/20 0830 96.6 ??F (35.9 ??C) (!) 137 19 -- 04/18/20 0815 (!) 96.1 ??F (35.6 ??C) (!) 141 20 -- 04/18/20 0800 (!) 96.1 ??F (35.6 ??C) (!) 135 20 -- 04/18/20 0746 -- (!) 146 -- [...] 04/19/2020 0600 Gross per 24 hour Intake 04158.95 ml Output 1980 ml Net 8171.95 ml [...] 6. Limited PNC 1. Limited visits with [facility] (2) secondary to transportation issues 2. [...] 04/17/2020 Hospital Day: 2 Attending: Dr. Brown Resident/Managed Care Coordinator: Drs. Crowe/ Jus Code Status: Full Code [...] 2/2 HCV, methamphetamine abuse who presented to [facility] ED at 38w0d with leakage of bloody fluid. Patient reported she got up to use the bathroom and noticed a gush of blood like Koolaid . Was lost to follow-up in [facility] for several months due to transportation and financial difficulties. That hospital did not have any ObGyn staff so she was transferred. During transport, nurses noticed blood clots passing and a continuous trickle of blood from the vagina, increased with contractions. Initial plan was to transfer the patient to [facility], the nearest [facility], however, [facility] would not accept the patient and she was brought to [facility]. On admission to [facility] the patient was actively bleeding with Plt [...] 04/19/2020 0600 Gross per 24 hour Intake 65561.95 ml Output 1980 ml Net 8171.95 ml Temp (24hrs), Av ??F (36.7 ??C), Min:94.5 ??F (34.7 ??C), Max:99.5 ??F (37.5 ??C) Vitals: 04/19/20 0300 04/19/20 0400 04/19/20 0500 04/19/20 0600 BP: Pulse: 75 73 71 72 Resp: 20 20 Temp: 98.1 ??F (36.7 ??C) 97.7 [...] for the following: Recent Labs Component Name 04/19/20 0351 04/18/20 [...] >60 Recent Labs Component Name 04/19/20 0350 04/18/20 2222 04/18/20 1809 INR 1.0 1.1 1.1 PTT 27.8 29.4 32.0 Recent Labs Component Name 04/17/20 205 COLORUA Yellow CLARITYUA Slt Cloudy* SPECGRAVUA 1.015 [...] Brown MD - 04/19/2020 3:41 PM CDT CCM Teaching attending note Date of service: 04/19/2020 [...] 2/2 HCV, methamphetamine abuse. who presented to [facility] ED at 38w0d with leakage of bloody fluid. Patient reported she got up to use the bathroom and noticed a gush of blood like Koolaid . During transport, nurses noticed blood clots passing and a continuous trickle of blood from the vagina, increased with contractions. Initial plan was to transfer the patient to [facility], the nearest hospital, however, [facility] would not accept the patient and she was brought to [facility]. On admission to [facility] the patient was actively bleeding with Plt [...] notified / phone, pt fundus firm at 1/U deviated to the Right. Lochia scant rubra on corine pad, 25 ml output bright red lochia from sim. IV Pitocin continues at 125 ml / IV. Will continue to monitor. * Perla Taylor, ALICE - 04/18/2020 5:29 PM CDT Problem: Safety [...] Transportation at discharge: Family Transportation (who): TBD Rice Farmworker/Support: Rice Farmworker person: Home/Functional Status: Functional and Cognitive Status [...] For any questions or needs please contact: Filtrose Crusher Name/Phone number: Miladys Parker RN [phone] * Helena Fraser MD - 04/18/2020 3:03 [...] - 04/18/2020 11:01 AM CDT # 493 was in the hallway near the elevator and saw patient's mother looking for the ICU. Patient's mother, Brittany, seemed anxious and distressed. Spinning Mule Tender accompanied Brittany to the ICU hallway and alerted patient's RN of Brittany's presence. RN provided Brittany with a brief update. RN was given Brittany'snumber to call once doctors are free to provide an update on patient's condition. Brittany informed equipment service associate that patient delivered twins (boy and girl) earlier this morning. Rc Mariee, also present on the 6th floor. Patient has a pre- existing blood platelet issue. Per Brittany, patient does not know she delivered her babies. Patient also as a 10yo and 15 yo. Spinning Mule Tender provided supportive presence and attentive listening to Brittany who was distressed throughout equipment service associate's time with her. Brittany wanted to return to the 6th floor to be with Rc and the babies in hopes of also getting some rest. Please call Brittany on her cell when doctors are available to provide an update. Pastoral Care remains available as needed/requested. Mariya Ray Spinning Mule Tender [place] Pastoral Care pager - Call [phone] (Mon-Fri: 7AM - 9PM and Sat/Sun 7AM - 3PM). Pastoral Care software validation technician pager - Call [phone] (outside of the times listed above) and enter a 10 digit call back number. Please allow the software validation technician equipment service associate 30 minutes to arrive to the hospital. * Boy Gonzalez, PT - 04/18/2020 8:56 AM CDT Attempted to see patient for physical therapy. Per solar energy advisor, patient not appropriate for PT evaland treat [...] Summary Patient Information Patient Name Hillary Smalls ([id number]) Sex Female OB History 3 Para 3 [...] F Delivery: Living: MARTHA Name: SERINA,BABY GIRL Deonte THORNTON Weight: 2640 g (5 lb 13.1 oz) Anes: General PTL: N A1: 6 A5: 7 Complications: Intolerance Location: [facility] Delivering Clinician: Marisa James MD 3B Outcome: Term Date: 04/18/20 GA: 38w1d Sex: M Delivery: Living: MARTHA Name: BROCK SMALLS BOY Dagmar THORNTON Weight: 2640 g (5 lb 13.1 oz) Anes: General PTL: N A1: 5 A5: 8 Complications: Intolerance Location: [facility] Delivering Clinician: Marisa James MD Transcribed Labs [...] Blood Loss Admission (Current) from 04/17/2020 in [facility] 4 ICU MEDICAL Estimated Blood Loss -- [...] 18.4 Comment: L -12.5 22 Brock Smalls Girl Deonte Thornton [[id number]] Patient Information Patient Name Brock Smalls ([id number]) Sex Female Anesthesia Method: Aviation Technician Events labor?: No steroids: None GBS Status: unknown Antibiotic: none Number of Antibiotic Doses: 0 Rupture Date: 04/18/20 Time: 0253 Rupture type: Spontaneous, Ruptured, Patient Denies Leaking Fluid color: Bloody Fluid odor: Normal Odor Augmentation: Oxytocin Indications for augmentation: Ineffective Contraction Pattern Labor complications: Intolerance Delivery Details Forceps attempted?: No Vacuum extractor attempted?: No Presentation: Delivery (Maternal) Placenta Date/time: 04/18/2020253 Disposition: Lab Other Delivery Procedures/Provider Comments Delivery - Physician I was present at delivery (physician name): Counts Gramercy Instruments Lap Pads Sponges Initial counts Added [...] Apgars assigned by: ANNABELLA TOMPKINS DO Delivery [place] Stabilization Suction Method: Catheter Secretions (Amount in [...] Arterial Stem cell collection (by )?: No [place] Measurements Weight: 2640 g Pounds and Ounces: 5 lb 13.1 oz Length: 18.5 Head circumference: 12.6 Chest circumference: Disposition: [place] Feeding and Elimination Mother's Feeding Choice During Stay ( Core Measure PC05): Voided in Delivery Room?: No Stooled in Delivery Room?: Yes Brock Smalls 2 [[id number]] Patient Information Patient Name Brock Smalls 2 ([id number]) Sex Male Anesthesia Method: Aviation Technician Events labor?: No steroids: None GBS Status: [...] was present at delivery (physician name): Counts Gramercy Instruments Lap Pads Sponges Initial counts Added to counts Final counts Delivery ([place]) Delivery Date: 04/18/20 Delivery Time: 2:54 AM [...] 8 Apgars assigned by: LE HUDSON Delivery [place] Stabilization Equipment Checked by: LE Hudson Vigorous at ? (Heart rate greater than 100, normal respirations and normal muscle tone): No Suction Method: Suction Trap Secretions (Amount in Comment): Thin, Clear Requires more than warming, stimulation, and suction?: Yes, See Infant's Chart Airway Support: CPAP via T-Piece Cord Vessels: 3 Vessels Delayed cord clamping?: No Time delayed: 30 seconds or less Cord blood disposition: Lab Gases sent?: Yes, Venous, Arterial Stem cell collection (by )?: No Measurements Weight: 2640 g Pounds and Ounces: 5 lb 13.1 oz Length: 18.7 Head circumference: 12.21 Chest circumference: Disposition: NICU [place] Feeding and Elimination Mother's Feeding Choice During [...] 04/17/2020 Hospital Day: 1 Attending: Dr. Brown Resident/Managed Care Coordinator: Drs. Crowe/ Jus Code Status: Full Code Events since last progress note: Patient seen and examined at the bedside. Continues to bleed. Sim adjusted. 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 Patient reported she got up to use the bathroom and noticed a gush of blood like Koolaid . Was lost to follow-up in [facility] for several months due to transportation and financial difficulties. That hospital did not have any ObGyn staff so she was transferred. During transport, nurses noticed blood clots passing and a continuous trickle of blood from the vagina, increased with contractions. Initial plan was to transfer the patient to [facility], the nearest hospital, however, [facility] would not accept the patient and she was brought to [facility]. On admission to [facility] the patient was actively bleeding with Plt [...] Recent Labs Component Name 04/18/20 0930 04/18/20 07504/18/20 07504/18/20 0537 WBC 16.9* - 17.6* 23.1* RBC [...] - 0.04 0.09* Recent Labs Component Name 04/18/2037 04/18/2041204/17/202056 SODIUM 138 139 138 POTASSIUM 4.8 4.0 4.3 CHLORIDE 110* 113* 112* CO2 13* 15* 16* BUN 20* 19* 21* CREATININE 1.02 0.99 1.07 GLUCOSE 306* 202* 67* CALCIUM 6.8* 7.1* 7.8* EGFR >60 >60 60* EGFRAFR >60 >60 >60 Recent Labs Component Name 04/18/20 0929 04/18/20 07504/18/20 0537 INR 1.2* 1.1 1.2* 1.2* PTT [...] When medically appropriate D/w ICU Attending, Resident, ALICE Luu MD 04/18/2020 1:18 PM Associated attestation - Clem Brown MD - 04/19/2020 3:39 PM CDT [facility] Teaching attending note Date of service: 04/18/2020 [...] 2/2 HCV, methamphetamine abuse. who presented to [facility] ED at 38w0d with leakage of bloody fluid. Patient reported she got up to use the bathroom and noticed a gush of blood like Koolaid . During transport, nurses noticed blood clots passing and a continuous trickle of blood from the vagina, increased with contractions. Initial plan was to transfer the patient to [facility], the nearest [facility], however, [facility] would not accept the patient and she was brought to [facility]. On admission to [facility] the patient was actively bleeding with Plt [...] above. Bakri placed at bedside by Dr. Sandoval and myself. Fundus firm with boggy MARVIN. [...] James also at bedside. Rapid response and Elevating Grader Operator Dr. Mallory was called and patient was [...] porter. Aware she cannot get epidural. Cervix 75/-3. Bleeding stable. Currently on pit of 6, cont to increase. Given 100mcg of fentanyl. Cont fentanyl for pain management for now, will check cervix prior to administration. EFM: A 135bpm, mod varibaility, reactive, area of broken tracing, cannot rule out decel B 140bpm, mod variability, reactive, no decels [place]: q2-3mins Labs reviewed. Plt 30 > 2u platelets > 29. Plan to give an additional 2u of platelets. 2u still on hold. Spoke with Blood Bank who is planning to order more platelets from [facility] (takes ~1hr). Fibrinogen stable at 345, from [...] [facility] for [facility] [facility]. On admission at L&D here, she [...] Mallory MD - 04/18/2020 8:02 PM CDT CCM Teaching attending note Date of service: 04/18/20 [...] 04/18/20 1430 98.6 ??F (37 ??C) 88 20 04/18/20 1415 98.8 ??F (37.1 ??C) 85 20 04/18/20 1400 98.8 ??F (37.1 ??C) 82 [...] decision making for assessment and support, direct ewey-fs-bazt evaluation, personal review of the medical record and laboratory and diagnostic imaging results, active titration of high-alert medications, and application of advanced monitoring techniques. As a result, I personally spent 59minutes providing critical care services exclusively to this patient. This was in exclusion of the time spent performing procedures (separately reported) or teaching. * Afsaneh Sandvoal MD - 04/17/2020 9:22 PM CDT R4 Obstetric H&P Note 04/17/2020, 9:23 PM CC: HRT for vaginal bleeding HPI: 29 year old at 38w0d gestation Datin week ultrasound Estimated Date of Delivery: 05/01/20 care: is with [facility] (only 2 visits) Patient's is complicated by: [...] the nearest hospitaland then was transferred to [facility]. Patient has continued to have some vaginal bleeding, but it is much less. Feels some mild contractions. She has not been seen in [facility] in several months due to transportation [...] variability, reactives B 135bpm, mod variability, reactive [place] q2-4min No decels seen, but areas of [...] Negative Negative Ketone UA Negative Negative Specific [place] UA 1.015 1.005 - 1.030 Blood UA [...] POS Product Number R02 Unit Donor # [id number] Unit Status selected Product Code [id number] Blood Type Barcode 6200 Expiration Date [id number] Unit Description AS1 LR PRBC Unit ABO A Unit Rh POS Product Number R43 Unit Donor # [id number] Unit Status selected Product Code [id number] Blood Type Barcode 6200 Expiration Date [id number] PREPARE PLATELET PHERESIS UNIT(S), 2 Units Result Value Ref Range Unit Description LR PLT Pheresis Unit ABO A Unit Rh POS Product Number P02 Unit Donor # [id number] Unit Status selected Product Code [id number] Blood Type Barcode 6200 Expiration Date [id number] Unit Description LR PLT Pher IRR Unit ABO B Unit Rh POS Product Number P10 Unit Donor # [id number] Unit Status released Product Code [id number] Blood Type Barcode 7300 Expiration Date [id number] Unit Description LR PLT Pheresis Unit ABO A Unit Rh POS Product Number P02 Unit Donor # [id number] Unit Status selected Product Code V8528P90 Blood Type Barcode 6200 Expiration Date [id number] BLOOD TYPE VERIFICATION Result Value Ref Range [...] and MARQUITA 4. Has been seen by Hydrotel Operator in [place], Dr. Alex 5. Plt 30 on admission [...] C 1. 2/2 IVDU 2. Quant 12/08/19 [id number] 3. ALT/AST 30/40 4. Has followed with hepatology, Dr. Jain [...] since then. Unable to see [facility]. 2. No abnormal cervical lesions palpated [...] tablet 160 mg, Oral, QDAY ?? Tdap (jdoipjp-pgeamqlaqi-uazbj pertussis) (BOOSTRIX) (7y+) injection 0.5 mL, Intramuscular, Immunization - Once Data Recent Labs Component Name 04/22/20 0904/21/20 0445 04/20/20 1946 WBC 13.3* 22.9* 21.9* HGB 8.0* 8.6* 8.2* HCT 24.6* 26.0* 24.5* PLTCOUNT 219 211 200 Recent Labs Component Name 04/22/20 0904/21/20 0641 04/20/20 1042 SODIUM 135* 132* 133* 135* POTASSIUM 3.3* 3.0* 3.0* 4.0 CHLORIDE 103 100 101 108* CO2 27 26 26 24 BUN 13 13 13 18 CREATININE 0.66 0.63 0.65 0.65 GLUCOSE 79 119* 118* 103 CALCIUM 7.1* 6.8* 6.9* 7.4* Recent Labs Component Name 04/22/20 0928 04/21/20 0641 04/20/20 1042 04/18/20 0537 ALBUMIN 2.0* 2.1* 2.1* 1.9* - 2.6* ALKPHOS 95 105 - - 192* ALT 26 23 19 - 22 AST 32 28 27 - 34 TBIL 0.5 0.4 - - 0.5 TPROT 5.1* 5.9* - - 4.7* - = values in this interval not displayed. No results for input(s): CDIFFTOXINAB in the last 78031 hours. No results for input(s): SEDRATE in the last 14929 hours. No results for input(s): CRP in the last 52531 hours. No results for input(s): CK in the last 94682 hours. .No results for input(s): VANCOTROUGH, VANCOPEAK, VANCSERIES in the last 93242 hours. Invalid input(s): VANCORAND Recent Labs Component Name 04/18/20412 HGBA1C 5.2 Recent Labs Component Name 04/17/202056 COLORUA Yellow CLARITYUA Slt Cloudy* SPECGRAVUA 1.015 PHUA 6.0 PROTEINUA 1+* BLOODUA 3+* LEUKOCYTEUA Negative NITRITEUA Negative GLUCOSEUA Negative KETONEUA Negative BILIRUBINUA Negative UROBILINUA Negative WBCUA 6-10* RBCUA >100* BACTUA None Seen Recent Labs Component Name 12/08/19 0703 FERRITIN 2* No results for input(s): PROCALCITON in the last 65356 hours. Microbiology Radiology Assessment Presentation in hemorrhagic [...] missed upon review. Bee Kauffman MD * Genevieve Reece MSW - 04/21/2020 11:31 AM CDT TECHNICAL SALES ENGINEER CASE MANAGEMENT PSYCHOSOCIAL ASSESSMENT Reason for Referral: Chemical Dependency/ ETOH /Substance Abuse. Mother with hx of vicodin, meth and herorin use. drug screen- cords +methamphetamines, amphetamines, and butalbital SW placed DCFS referral on 04/18/20. DCFS worker is Irlanda Adams ([phone]; fax [phone]). SW has faxed UDS and cord results to [facility] and left a voicemail on 04/21/20 to provide additional information. SW is waiting to hear back from [facility] regarding d/c plan. SW met with pt at bedside who stated [...] pertinent to this visit. Father of baby: DANIELLE is [facility] [place] who pt reported is involved and supportive. Language Barriers: None Cultural Barriers: None Ethnicity: Unavailable Lang: [place] Patient's Address: Pt stated she resides at [address] [place] [address] Pt's phone number: [phone] Pt shared she does not currently have her cell ph in her room. Family Support (name and phone) Extended Emergency Contact Information Primary Emergency Contact: Hillary Smalls Address: [address] [place] [address] [place] Relation: Mother Vp Strategic Partnerships needed? No Alternative Environmental Adviser Family Strengths: Pt shared she has a good support system, including her mother. Family Dynamic/Household Composition/Other children: Pt shared she resides with DANIELLE and his father. She shared her mother (Brittany Smalls) lives nearby and cares for her 2 other children. She reported to she maintains custody of her other 2 [...] [place] and was on substance medication [...] Support Line, Woman and 's Resource Guide, [place] psych supports. Employment: Pt shared she is not currently employed. Education: Pt shared she has completed 11th grade. Government assistance TANF (Temporary Assistance to Needy Families)- No Food [place]- Yes WIC- Yes SSI- No Insurance: Payor/Plan Subscriber Name Rel Member # Group # MEDICAID - PENDING - * BROCK SMALLS * SON [id number] [address] [address] Community Resources Utilized: DCFS is involved. Designated Storage Architect: Pt indicated she has identified a footwear sales representative. Referrals: Nurses for Newborns- [place] resident Child protection referral- GERALD placed DCFS referral on 04/18/20 DFS/DCFS-Name of worker: Irlanda Adams Phone number: [phone]; fax [phone] Does the family have the following basic discharge needs? Pt denied any resource needs at this time. Utilities- Yes Telephone- Yes Car seat- Yes Crib- Yes Baby clothing- Yes Medication Assistant/School: Pt shared she plans to stay home to care for the twins with the support of FOB and her mother. Transportation: Pt indicated she would get a ride home at time of d/c from a family member or FOB. Family planning: The pt and her TECHNICAL SALES ENGINEER have discussed family planning. Recommended discharge plan for : Do not d/c infants home without DCFS approval. D/c plan to be determined by DCFS. Per nursing, infants are expected to be medically ready for d/c 04/22/20. GERALD iswaiting to hear back from [facility] regarding d/c plan. Addendum: 4:20 pm DCFS worker Irlanda Adams indicated she plans to go to court to take custody of the twins Tuesday (04/22). She indicated she would fax the court order and placement letter to SW once received.She shared she has to connect with pt and Brittany (pt's mother) regarding this placement and conduct the home visit before placement can approved. JAYLYN James Office Ascom * Chen Watts, AVELINA/GUEVARA - 04/18/2020 2:11 PM CDTAssociated Order(s): IP CONSULT TO NUTRITIONAL SERV Clinical Nutrition Consult received per TF protocol. Clinical nutrition already following. Med/Surg History and Clinical Diagnoses: hemorrhagic shock, acute hypoxic respiratory failure, lactic acidosis, s/p emergent with twin ; h/o hepatitis C, anemia Estimated Needs: KCAL: 2048-5702(20-25 kcal/kg IBW) Protein (g): 60-100(1.2-2 gm/kg IBW) [...] high nutritional risk per protocol. JÚNIOR Pal, 04/18/2020 2:11 PM Ascom [id number] * Genevieve Reece MSW - 04/18/2020 2:08 PM CDTAssociated Order(s): IP CONSULT TO SALES REPRESENTATIVE BUSINESS COURSES Social Service Consult -- Brief Reason for Referral: Mother with hx of vicodin, meth and herorin use. [place] drug screen. Cords remain pending. Male/female twins [...] methamphetamine use. Cord results remain pending. Hotline migratory worker is Otf Breaux . SW connected with nursing who shared pt is expected to remain inpatient through the weekend and twins may be ready for d/c Tuesday or Tuesday. SW will continue to follow-up to provide support and assistance as needed. SW will follow-up to conduct assessment. JAYLYN James Office Ascom * Chen Watts RD/LD - 04/18/2020 12:50 PM CDTAssociated Order(s): IP CONSULT TO NUTRITIONAL SERV CLINICAL NUTRITION ASSESSMENT Assessment: Patient discussed in rounds. Consult received / vent protocol. Patient s/p emergency section 04/17 for suspected placental abruption with deceleration. Transferred to ICU with low BP,hypothermia. Intubated. On esau hugger. Propofol is currently running at 13.23 ml/ hour which provides pt with 349 kim per day from lipids. Requiring levophed for [...] vitamin B12, folic acid, venofer. Last BM RESEARCH TECHNOLOGIST. Active bowel sounds noted. EMR indicates weight [...] Pain affecting intake: No Estimated Needs: KCAL: 4266-5824(20-25 kcal/kg IBW) Protein (g): 60-100(1.2-2 gm/kg IBW) Fluid (ml): 1 ml/kcal Recommended Access Route: PO Labs: Recent Labs Component Name 04/18/20 0537 04/18/20 0413 04/17/207 SODIUM 138 139 138 POTASSIUM 4.8 4.0 4.3 CHLORIDE 110* 113* 112* CO2 13* 15* 16* BUN 20* 19* 21* CREATININE 1.02 0.99 1.07 GLUCOSE 306* 202* 67* CALCIUM 6.8* 7.1* 7.8* ALBUMIN 2.6* 2.3* 2.7* Recent Labs Component Name 04/18/20 0930 04/18/20 0750 04/18/20 0537 HGB 6.3* 8.2* 8.9* HCT 18.8* 25.1* 28.6* Recent Labs Component Name 04/18/203 HGBA1C 5.2 No results for input(s): PREALBUMIN in the last 25365 hours. No results for input(s): PHOS, PHOSPHORUS in the last 11164 hours. Recent Labs Component Name 04/18/2037 MAGNESIUM 1.3* Patient Vitals for the past [...] injection 40 mg, Intravenous, QDAY ?? [COMPLETED] qdfkpvlhwk-ufkipssdwktei-euqjewbh (FIORICET) 50-325-40 MG tablet 1 tablet, Oral, [...] Intravenous, Continuous Skin/Wound: abdomen incision Last BM: RESEARCH TECHNOLOGIST Nutrition Care Process (1) Nutrition Diagnostic Statement: [...] visits. More recently,she was admitted to the MFM service at [facility] Nov, 2019 at 19 weeks gestation with [...] follow-up with hepatology and her own local stone rigger . The patient is currently sedated and intubated and can offer no history. Chart notes indicate that she was being followed by her stone rigger, Dr. Alex in [place] and was receiving B12, folate and iron supplements and had seen a heavy equipment diesel mechanic, Dr. Jain, but had not initiated any therapy for her HCV infection.. She initially presented at [facility] ED and was transferred to [facility] for a higher level of care. During [...] A Bakri balloon was placed by the J2EE ANDROID DEVELOPER service in the uterine fundus which showed [...] mcg/50mL (SUBLIMAZE) infusion 25 mcg/hr Intravenous Continuous Clem Brown MD 0.5 mL/hr at 04/18/20 1214 25 [...] IV 265 mL IVPB 300 mg Intravenous QDHeraclio Smith MD Stopped at 04/18/20 1155 ??? lactated ringers infusion Intravenous Continuous Snehal Ellis MD 250 mL/hr at 04/18/20 1214 ??? norepinephrine (LEVOPHED) 32 mg in dextrose 5 % 250 mL infusion 0-0.6 mcg/kg/min Intravenous Continuous Maikel Ring MD Stopped at 04/18/20 1027 ??? oxytocin (PITOCIN) 30 units in 500 mL 0.9% sodium chloride infusion 125 nitin-units/min Intravenous CONTINUOUS PRN Luisa Pelaez MD 125 mL/hr at 04/18/20 1214 125 nitin-units/min at 04/18/20 1214 ??? pantoprazole (PROTONIX) injection 40 mg 40 mg Intravenous QDAY Maikel Ring MD 40 mg at 04/18/20 0922 ??? propofol (DIPRIVAN) infusion 0-80 mcg/kg/min Intravenous Continuous Clem Brown MD 11.03 mL/hr at 04/18/20 1215 25 mcg/kg/min at 04/18/20 1215 Medications in MAR reviewed. Physical examination: height [...] intubated, unresponsive on ventilator Laboratory data: ANC 96107 ALC 1488 Recent Labs Component Name 04/18/20 [...] Labs Component Name 04/18/20 0537 04/18/20 0413 04/17/207 SODIUM 138 139 138 POTASSIUM 4.8 4.0 [...] Negative 12/08/19 Hepatitis C Virus Quantitation IU/mL 259615 Hepatitis C Virus Log 10 log10 IU/mL 5.959 [place] with DRVVT - negative Beta 2 glycoprotein antibody titers IgG/IgM-negative Cardiolipin antibody IgG/IgA-negative. IgM 37 (low to medium positive) Imaging data: Portable chest l-uii-BKUVQMOC/IMPRESSION: The tip of the endotracheal tube may [...] no blasts,, normocytic, hypochromic red cells, numerous alicia cells, rare fragmented cells, occasional teardrops, occasional [...] B12 1000 mcg IM daily x7 days, Gstnwgf690 mg IV infusion daily x3 days, folic acid 1 mg IV daily. 6. Untreated HCV infection, mildly deranged hepatic function-monitor LFTs. Will need to start therapy directed against HCV once stable 7. Polysubstance drug abuse, IV drug abuse-UDS positive for amphetamine. Monitor for withdrawal. Discussed with the ICU resident team, the patient's RN, and with Dr. Brown, solar energy advisor. Dr. Castillo, is covering our group over the weekend and will be available for any questions as needed. Dr Haider will cover my inpatient service on Tuesday04/21/2020 Heraclio Dave MD, FACP Hematology and Medical Oncology [facility] [address] [place] [address], [facility] [address] [place] [address] Exchange: [phone] Please be advised that voice recognition software [...] and ovaries. Information for the patient's : Serina, Baby Girl 1 Hillary [[id number]] Date of 04/18/2020 Time of : 2:53 AM Sex: Female Weight: 2640 g (5 lb 13.1 oz) (1 min): 6 (5 min): 7 (10 min): 8 Information for the patient's : Serina, Baby Boy 2 Hillayr [[id number]] Date of 04/18/2020 Time of : 2:54 [...] - 04/18/2020 6:52 AM CDT Called for BELLSTAND ATTENDANT at 0446 for decreased BP. Unable to obtain sBP, OB staff at bedside. Immediate emergent transfer to MICU. Transfer to 493 at 0450. Elevating Grader Operator at bedside. Intubated and lined per Dr. [...] CBC W AUTO DIFFERENTIAL AM Draw 04/21/20 4:45 AM CDT DIFFERENTIAL MANUAL Routine 04/20/2020 7 :46 PM CDT CBC W AUTO DIFFERENTIAL Timed 04/20/20 7:46 PM CDT XR CHEST 2VW STAT 04/20/2020 5:11 PM CDT Pre-eclampsia in third trimester (HCC) CBC W AUTO DIFFERENTIAL Timed 04/20/20 2:08 PM CDT CBC W AUTO DIFFERENTIAL [...] IGG/IGM/IGA PANEL STAT 04/18/2020 9:30 AM CDT [id number] ANTIBODY STAT 04/18/2020 9:2 9 AM CDT REF LAB COMMENT Routine 04/18/2020 9:29 AM CDT [id number] ACTIVITY STAT 04/18/2020 9:2 9 AM CDT [...] CDT CBC W AUTO DIFFERENTIAL Timed 04/18/20 12:53 AM CDT TRANSFUSE PLATELET PHERESIS UNIT(S) [...] COMPREHENSIVE METABOLIC PANEL (04/23/2020 6:01 AM CDT) [facility] Glucose 82 70 - 105 mg/dL 04/23/2020 7:01 AM CDT [facility] Sodium 135(L) 136 - 145 mmol/L 04/23/2020 7:01 AM [facility] Potassium 3.8 3.5 - 5.1 mmol/L 04/23/2020 7:01 AM [facility] Chloride 102 98 - 107 mmol/L 04/23/2020 7:01 AM [facility] CO2 25 23 - 31 mmol/L 04/23/2020 7:01 AM [facility] Calcium 7.6(L) 8.4 - 10.4 mg/dL 04/23/2020 7:01 AM [facility] Anion Gap 8 8 - 16 mmol/L 04/23/2020 7:01 AM [facility] BUN 14 7 - 18.7 mg/dL 04/23/2020 7:01 AM [facility] Creatinine 0.60 0.57 - 1.11 mg/dL 04/23/2020 7:01 AM [facility] Alkaline Phosphatase 112 40 - 150 U/L 04/23/2020 7:01 AM [facility] ALT 29 0 - 61 U/L 04/23/2020 7:01 AM [facility] AST 34 5 - 34 U/L 04/23/2020 7:01 AM [facility] Protein Total 5.7(L) 6.4 - 8.3 gm/dL 04/23/2020 7:01 AM [facility] Albumin 2.2(L) 3.5 - 5.2 gm/dL 04/23/2020 7:01 AM [facility] Bilirubin Total 0.5 0.2 - 1.0 mg/dL 04/23/2020 7:01 AM [facility] eGFR by MDRD >60 >60 mL/min/1.7 3m2 04/23/2020 7:01 AM [facility] eGFR by MDRD >60 >60 mL/min/1.7 3m2 04/23/2020 7:01 AM [facility] Blood BLOOD SPECIMEN / Unknown Lab Venipuncture / Unknown 04/23/2020 6:01 AM CDT 04/23/2020 6:30 AM [facility] [place]NOTE 2] Shira Gracia MD LAB - CHEMISTRY ORD ERABLES [facility] [address] [place] [address] * (ABNORMAL) CBC W AUTO DIFFERENTIAL (04/23/2020 6:01 AM CDT) WBC 15.8(H) 4.4 - 10.7 x10E9/L 04/23/2020 6:44 AM CDT [facility] WBC Corrected 04/23/2020 6:44 AM CDT [facility] RBC 2.97(L) 3.80 - 5.20 x10E12/L 04/23/2020 6:44 AM CDT [facility] Hemoglobin 8.4(L) 12.0 - 15.6 gm/dL 04/23/2020 6:44 AM CDT [facility] Hematocrit 25.6(L) 35.9 - 45.5 % 04/23/2020 6:44 AM CDT [facility] MCV 86.2 80.7 - 98.3 fl 04/23/2020 6:44 AM CDT [facility] MCH 28.3 26.7 - 34.0 pg 04/23/2020 6:44 AM CDT [facility] MCHC 32.8 30.8 - 35.9 gm/dL 04/23/2020 6:44 AM CDT [facility] Platelet Count 272 153 - 416 x10E9/L 04/23/2020 6:44 AM CDT [facility] RDW-CV 19.6(H) 12.1 - 14.9 % 04/23/2020 6:44 AM CDT [facility] MPV 10.8 9.4 - 12.9 fl 04/23/2020 6:44 AM CDT [facility] Neutrophils % 79.2(H) 44.0 - 73.0 % 04/23/2020 6:44 AM CDT [facility] Lymphocytes % 11.4(L) 20.0 - 43.0 % 04/23/2020 6:44 AM CDT [facility] Monocytes % 5.2 5.0 - 13.0 % 04/23/2020 6:44 AM CDT [facility] Eosinophils % 0.1 0.0 - 6.0 % 04/23/2020 6:44 AM CDT [facility] Basophils % 0.2 0.0 - 2.0 % 04/23/2020 6:44 AM CDT [facility] Immature Granulocytes 3.9(H) 0 - 1 % 04/23/2020 6:44 AM CDT [facility] Neutrophil Absolute 12.50(H) 2.01 - 7.14 x10E9/L 04/23/2020 6:44 AM CDT [facility] Lymphocytes Absolute 1.80 1.07 - 3.94 x10E9/L 04/23/2020 6:44 AM CDT [facility] Monocytes Absolute 0.82 0.26 - 1.07 x10E9/L 04/23/2020 6:44 AM CDT [facility] Eosinophils Absolute 0.02 0 - 0.47 x10E9/L 04/23/2020 6:44 AM CDT [facility] Basophils Absolute 0.03 0 - 0.08 x10E9/L 04/23/2020 6:44 AM CDT [facility] Immature Granulocytes Absolute 0.62(H) 0.00 - 0.06 x10E9/L 04/23/2020 6:44 AM CDT [facility] nRBC Auto 4 /100 WBC 04/23/2020 6:44 AM T [facility] Blood BLOOD SPECIMEN / Unknown Lab Venipuncture / Unknown 04/23/2020 6:01 AM CDT 04/23/2020 6:30 AM CDT Maikel Ring MD LAB - HEMATOLOGY ORDERABLES Performing Organization Address City/State/[facility] Co de Phone Number [facility] [address] [place], [place] [id number] * (ABNORMAL) COMPREHENSIVE METABOLIC PANEL (04/22/2020 9:28 AM CDT) [facility] Glucose 79 70 - 105 mg/dL 04/22/2020 10:09 AM CDT [facility] Sodium 135(L) 136 - 145 mmol/L 04/22/2020 10:09 AM CDT [facility] Potassium 3.3(L) 3.5 - 5.1 mmol/L 04/22/2020 10:09 AM CDT [facility] Chloride 103 98 - 107 mmol/L 04/22/2020 10:09 AM CDT [facility] CO2 27 23 - 31 mmol/L 04/22/2020 10:09 AM CDT [facility] Calcium 7.1(L) 8.4 - 10.4 mg/dL 04/22/2020 10:09 AM [facility] Anion Gap 5(L) 8 - 16 mmol/L 04/22/2020 10:09 AM CDT [facility] BUN 13 7 - 18.7 mg/dL 04/22/2020 10:09 AM CDT [facility] Creatinine 0.66 0.57 - 1.11 mg/dL 04/22/2020 10:09 AM [facility] Alkaline Phosphatase 95 40 - 150 U/L 04/22/2020 10:09 AM CDT [facility] ALT 26 0 - 61 U/L 04/22/2020 10:09 AM CDT [facility] AST 32 5 - 34 U/L 04/22/2020 10:09 AM [facility] Protein Total 5.1(L) 6.4 - 8.3 gm/dL 04/22/2020 10:09 AM [facility] Albumin 2.0(L) 3.5 - 5.2 gm/dL 04/22/2020 10:09 AM [facility] Bilirubin Total 0.5 0.2 - 1.0 mg/dL 04/22/2020 10:09 AM [facility] eGFR by MDRD >60 >60 mL/min/1.7 3m2 04/22/2020 10:09 AM CDT [facility] eGFR by MDRD >60 >60 mL/min/1.7 3m2 04/22/2020 10:09 AM T [facility] Blood BLOOD SPECIMEN / Unknown Lab Venipuncture / Unknown 04/22/2020 9:28 AM CDT 04/22/2020 9:35 AM CDT Shira Gracia MD LAB - CHEMISTRY ORD ERABLES [facility] [address] [place] [address] * (ABNORMAL) CBC W AUTO DIFFERENTIAL (04/22/2020 9:28 AM CDT) WBC 13.3(H) 4.4 - 10.7 x10E9/L 04/22/2020 10:01 AM [facility] WBC Corrected 04/22/2020 10:01 AM [facility] RBC 2.77(L) 3.80 - 5.20 x10E12/L 04/22/2020 10:01 AM [facility] Hemoglobin 8.0(L) 12.0 - 15.6 gm/dL 04/22/2020 10:01 AM [facility] Hematocrit 24.6(L) 35.9 - 45.5 % 04/22/2020 10:01 AM [facility] MCV 88.8 80.7 - 98.3 fl 04/22/2020 10:01 AM [facility] MCH 28.9 26.7 - 34.0 pg 04/22/2020 10:01 AM [facility] MCHC 32.5 30.8 - 35.9 gm/dL 04/22/2020 10:01 AM [facility] Platelet Count 219 153 - 416 x10E9/L 04/22/2020 10:01 AM [facility] RDW-CV 19.5(H) 12.1 - 14.9 % 04/22/2020 10:01 AM [facility] MPV 10.8 9.4 - 12.9 fl 04/22/2020 10:01 AM [facility] Neutrophils % 77.8(H) 44.0 - 73.0 % 04/22/2020 10:01 AM [facility] Lymphocytes % 13.7(L) 20.0 - 43.0 % 04/22/2020 10:01 AM [facility] Monocytes % 5.2 5.0 - 13.0 % 04/22/2020 10:01 AM [facility] Eosinophils % 0.5 0.0 - 6.0 % 04/22/2020 10:01 AM [facility] Basophils % 0.2 0.0 - 2.0 % 04/22/2020 10:01 AM [facility] Immature Granulocytes 2.6(H) 0 - 1 % 04/22/2020 10:01 AM [facility] Neutrophil Absolute 10.35(H) 2.01 - 7.14 x10E9/L 04/22/2020 10:01 AM [facility] Lymphocytes Absolute 1.82 1.07 - 3.94 x10E9/L 04/22/2020 10:01 AM CDT [facility] Monocytes Absolute 0.69 0.26 - 1.07 x10E9/L 04/22/2020 10:01 AM CDT [facility] Eosinophils Absolute 0.07 0 - 0.47 x10E9/L 04/22/2020 10:01 AM CDT [facility] Basophils Absolute 0.02 0 - 0.08 x10E9/L 04/22/2020 10:01 AM CDT [facility] Immature Granulocytes Absolute 0.35(H) 0.00 - 0.06 x10E9/L 04/22/2020 10:01 AM CDT [facility] nRBC Auto 3 /100 WBC 04/22/2020 10:01 AM CDT [facility] Blood BLOOD SPECIMEN / Unknown Lab Venipuncture / Unknown 04/22/2020 9:28 AM CDT 04/22/2020 9:35 AM CDT Maikel Ring MD LAB - HEMATOLOGY ORDERABLES [facility] [address] [place] [address] * PREPARE FFP UNIT(S), 1 Units (04/21/2020 6:41 AM CDT) Pathologist [facility] Unit Description Thawed Plasma 5D [facility] ABO AB [facility] Rh POS [facility] Product Number [id number] [facility] Donor # [id number] [facility] Unit Status transfused [facility] Product Code [id number] [facility] Blood Type Barcode 8400 [facility] Expiration Date [id number] S [facility] Blood Bank BLOOD SPECIMEN / Unknown 04/21/2020 6:41 AM CDT 04/21/2020 6:48 AM CDT Marisa James MD LAB - BLOOD BANK ORD ERABLES Performing Organization Address City/[facility]/ZIP Co de Phone Number [facility] [address] [place] [address] * (ABNORMAL) COMPREHENSIVE METABOLIC PANEL (04/21/2020 6:41 AM CDT) Glucose 119(H) 70 - 105 mg/dL 04/21/2020 8:02 AM [facility] Sodium 132(L) 136 - 145 mmol/L 04/21/2020 8:02 AM [facility] Potassium 3.0(L) 3.5 - 5.1 mmol/L 04/21/2020 8:02 AM [facility] Chloride 100 98 - 107 mmol/L 04/21/2020 8:02 AM [facility] CO2 26 23 - 31 mmol/L 04/21/2020 8:02 AM [facility] Calcium 6.8(LL) 8.4 - 10.4 mg/dL 04/21/2020 8:02 AM [facility] Anion Gap 6(L) 8 - 16 mmol/L 04/21/2020 8:02 AM [facility] BUN 13 7 - 18.7 mg/dL 04/21/2020 8:02 AM [facility] Creatinine 0.63 0.57 - 1.11 mg/dL 04/21/2020 8:02 AM [facility] Alkaline Phosphatase 105 40 - 150 U/L 04/21/2020 8:02 AM [facility] ALT 23 0 - 61 U/L 04/21/2020 8:02 AM [facility] AST 28 5 - 34 U/L 04/21/2020 8:02 AM [facility] Protein Total 5.9(L) 6.4 - 8.3 gm/dL 04/21/2020 8:02 AM [facility] Albumin 2.1(L) 3.5 - 5.2 gm/dL 04/21/2020 8:02 AM [facility] Bilirubin Total 0.4 0.2 - 1.0 mg/dL 04/21/2020 8:02 AM [facility] eGFR by MDRD >60 >60 mL/min/1.7 3m2 04/21/2020 8:02 AM [facility] eGFR by MDRD >60 >60 mL/min/1.7 3m2 04/21/2020 8:02 AM [facility] Blood BLOOD SPECIMEN / Unknown Lab Venipuncture / Unknown 04/21/2020 6:41 AM CDT 04/21/2020 6:48 AM CDT Shira Gracia MD LAB - CHEMISTRY ORD ERABLES [facility] [address] [place] [address] * (ABNORMAL) RENAL FUNCTION PANEL (04/21/2020 6:41 AM CDT) Glucose 118(H) 70 - 105 mg/dL 04/21/2020 7:46 AM CDT [facility] Sodium 133(L) 136 - 145 mmol/L 04/21/2020 7:46 AM CDT [facility] Potassium 3.0(L) 3.5 - 5.1 mmol/L 04/21/2020 7:46 AM CDT [facility] Chloride 101 98 - 107 mmol/L 04/21/2020 7:46 AM CDT [facility] CO2 26 23 - 31 mmol/L 04/21/2020 7:46 AM CDT [facility] Calcium 6.9(LL) 8.4 - 10.4 mg/dL 04/21/2020 7:46 AM CDT [facility] Anion Gap 6(L) 8 - 16 mmol/L 04/21/2020 7:46 AM CDT [facility] BUN 13 7 - 18.7 mg/dL 04/21/2020 7:46 AM CDT [facility] Creatinine 0.65 0.57 - 1.11 mg/dL 04/21/2020 7:46 AM CDT [facility] Albumin 2.1(L) 3.5 - 5.2 gm/dL 04/21/2020 7:46 AM CDT [facility] Phosphorus 3.6 2.3 - 4.7 mg/dL 04/21/2020 7:46 AM CDT [facility] eGFR by MDRD >60 >60 mL/min/1.7 3m2 04/21/2020 7:46 AM CDT [facility] eGFR by MDRD >60 >60 mL/min/1.7 3m2 04/21/2020 7:46 AM CDT [facility] Blood BLOOD SPECIMEN / Unknown Lab Venipuncture / Unknown 04/21/2020 6:41 AM CDT 04/21/2020 6:48 AM CDT Clem Brown MD LAB - CHEMISTRY MIRI GO Performing Organization Address City/[facility]/ZIP Co de Phone Number [facility] [address] [place] [address] * (ABNORMAL) MAGNESIUM BLOOD (04/21/2020 6:41 AM CDT) Magnesium 4.6(H) 1.6 - 2.6 mg/dL 04/21/2020 7:38 AM CDT [facility] Blood BLOOD SPECIMEN / Unknown Lab Venipuncture / Unknown 04/21/2020 6:41 AM CDT 04/21/2020 6:48 AM CDT Clem Brown MD LAB - CHEMISTRY MIRI GO Performing Organization Address [facility] Co de Phone Number [facility] [address] [place] [address] * TYPE + SCREEN PANEL (04/21/2020 6:41 AM CDT) ABO Rh A POS 04/21/2020 7:44 AM CDT [facility] Comment:History checked. Antibody Screen NEG 0 7:44 AM CDT [facility] Blood Bank BLOOD SPECIMEN / Unknown Lab Venipuncture / Unknown 04/21/2020 6:41 AM CDT 04/21/2020 6:48 AM CDT Danilo Rodríguez MD LAB - BLOOD BANK ORD ROMARIO Performing Organization Address City/[facility]/ZIP Co de Phone Number [facility] [address] [place] [address] * HAPTOGLOBIN (04/21/2020 6:41 AM CDT) Haptoglobin 42 30 - 200 mg/dL 04/21/2020 7:38 AM CDT [facility] Blood BLOOD SPECIMEN / Unknown Lab Venipuncture / Unknown 04/21/2020 6:41 AM CDT 04/21/2020 6:48 AM CDT Turner Castillo MD LAB - CHEMISTRY MIRI GO Performing Organization Address City/[facility]/ZIP Co de Phone Number [facility] [address] [place], [place] [phone] * (ABNORMAL) LDH BLOOD (04/21/2020 6:41 AM CDT) LDH 449(H) 125 - 220 U/L 04/21/2020 7:38 AM CDT [facility] Blood BLOOD SPECIMEN / Unknown Lab Venipuncture / Unknown 04/21/2020 6:41 AM CDT 04/21/2020 6:48 AM CDT Turner Castillo MD LAB - CHEMISTRY MIRI GO Performing Organization Address [facility] Co de Phone Number [facility] [address] [place] [address] * (ABNORMAL) DIFFERENTIAL MANUAL (04/21/2020 4:45 AM CDT) WBC Auto 22.9 x10E9/L 04/21/2020 7:18 AM CDT [facility] WBC Corrected 04/21/2020 7:18 AM CDT [facility] nRBC 3 /100 WBC 04/21/2020 7:18 AM CDT [facility] Neutrophil % Manual 89(H) 44 - 73 % 04/21/2020 7:18 AM CDT [facility] Lymphocytes % Manual 5(L) 20 - 43 % 04/21/2020 7:18 AM CDT [facility] Monocytes % Manual 3(L) 5 - 13 % 2019 7:18 AM CDT [facility] Band % Manual 2 0 - 11 % 04/21/2020 7:18 AM CDT [facility] [place] Manual 1(H) <=0 % 04/21/2020 7:18 AM CDT [facility] Cells Counted 100 # cells 04/21/2020 7:18 AM CDT [facility] WBC Morph Normal 04/21/2020 7:18 AM CDT [facility] Anisocytosis 2+(A) None 04/21/2020 7:18 AM CDT [facility] Polychromasia 1+(A) None 04/21/2020 7:18 AM CDT [facility] Platelet Estimation Normal 04/21/2020 7:18 AM CDT [facility] Blood BLOOD SPECIMEN / Unknown Lab Venipuncture / Unknown 04/21/2020 4:45 AM CDT 04/21/2020 5:51 AM CDT Maikel Ring MD LAB - HEMATOLOGY ORDERABLES [facility] [address] [place] [address] * (ABNORMAL) CBC W AUTO DIFFERENTIAL (04/21/2020 4:45 AM CDT) WBC 22.9(H) 4.4 - 10.7 x10E9/L 04/21/2020 6:14 AM CDT [facility] WBC Corrected 04/21/2020 6:14 AM CDT [facility] RBC 3.02(L) 3.80 - 5.20 x10E12/L 04/21/2020 6:14 AM CDT [facility] Hemoglobin 8.6(L) 12.0 - 15.6 gm/dL 04/21/2020 6:14 AM CDT [facility] Hematocrit 26.0(L) 35.9 - 45.5 % 04/21/2020 6:14 AM CDT [facility] MCV 86.1 80.7 - 98.3 fl 04/21/2020 6:14 AM CDT [facility] MCH 28.5 26.7 - 34.0 pg 04/21/2020 6:14 AM CDT [facility] MCHC 33.1 30.8 - 35.9 gm/dL 04/21/2020 6:14 AM CDT [facility] Platelet Count 211 153 - 416 x10E9/L 04/21/2020 6:14 AM CDT [facility] RDW-CV 19.5(H) 12.1 - 14.9 % 04/21/2020 6:14 AM CDT [facility] MPV 12.0 9.4 - 12.9 fl 04/21/2020 6:14 AM CDT [facility] nRBC Auto 3 /100 WBC 04/21/2020 6:14 AM CDT [facility] Blood BLOOD SPECIMEN / Unknown Lab Venipuncture / Unknown 04/21/2020 4:45 AM CDT 04/21/2020 5:51 AM CDT Maikel Ring MD LAB - HEMATOLOGY ORDERABLES Performing Organization Address City/[facility]/ZIP Co de Phone Number [facility] [address] [place], [place] [phone] * (ABNORMAL) DIFFERENTIAL MANUAL (04/20/2020 7:46 PM CDT) WBC Auto 21.9 x10E9/L 04/20/2020 9:10 PM CDT [facility] WBC Corrected 04/20/2020 9:10 PM CDT [facility] nRBC 5 /100 WBC 04/20/2020 9:10 PM CDT [facility] Neutrophil % Manual 97(H) 44 - 73 % 04/20/2020 9:10 PM CDT [facility] Lymphocytes % Manual 1(L) 20 - 43 % 04/20/2020 9:10 PM CDT [facility] Monocytes % Manual 1(L) 5 - 13 % 04/20/2020 9:10 PM CDT [facility] Band % Manual 1 0 - 11 % 04/20/2020 9:10 PM CDT [facility] Cells Counted 100 # cells 04/20/2020 9:10 PM CDT [facility] RBC Morphology Normal 04/20/2020 9:10 PM CDT [facility] WBC Morph Normal 04/20/2020 9:10 PM CDT [facility] Platelet Estimation Normal 04/20/2020 9:10 PM CDT [facility] Blood BLOOD SPECIMEN / Unknown Lab Venipuncture / Unknown 04/20/2020 7:46 PM CDT 04/20/2020 7:51 PM CDT Turner Castillo MD LAB - HEMATOLOGY ORD ERABLES Performing Organization Address City/[facility]/ZIP Co de Phone Number [facility] [address] [place] [phone] * (ABNORMAL) CBC W AUTO DIFFERENTIAL (04/20/2020 7:46 PM CDT) [facility] Signature WBC 21.9(H) 4.4 - 10.7 x10E9/L 04/20/2020 7:58 PM CDT [facility] WBC Corrected 04/20/2020 7:58 PM CDT [facility] RBC 2.93(L) 3.80 - 5.20 x10E12/L 04/20/2020 7:58 PM CDT [facility] Hemoglobin 8.2(L) 12.0 - 15.6 gm/dL 04/20/2020 7:58 PM CDT [facility] Hematocrit 24.5(L) 35.9 - 45.5 % 04/20/2020 7:58 PM CDT [facility] MCV 83.6 80.7 - 98.3 fl 04/20/2020 7:58 PM CDT [facility] MCH 28.0 26.7 - 34.0 pg 04/20/2020 7:58 PM CDT [facility] MCHC 33.5 30.8 - 35.9 gm/dL 04/20/2020 7:58 PM CDT [facility] Platelet Count 200 153 - 416 x10E9/L 04/20/2020 7:58 PM CDT [facility] RDW-CV 18.6(H) 12.1 - 14.9 % 04/20/2020 7:58 PM CDT [facility] MPV 11.1 9.4 - 12.9 fl 04/20/2020 7:58 PM CDT [facility] nRBC Auto 3 /100 WBC 04/20/2020 7:58 PM CDT [facility] Blood BLOOD SPECIMEN / Unknown Lab Venipuncture / Unknown 04/20/2020 7:46 PM CDT 04/20/2020 7:51 PM CDT Turner Castillo MD LAB - HEMATOLOGY ORD ERABLES [facility] [address] [place] [address] * XR CHEST 2VW (04/20/2020 5:11 PM [...] Shira Gracia MD DIAGNOSTIC IMAGING ORDERABLES * (ABNORMAL) CBC W AUTO DIFFERENTIAL (04/20/2020 2:08 PM CDT) WBC 21.4(H) 4.4 - 10.7 x10E9/L 04/20/2020 2:16 PM CDT [facility] WBC Corrected 04/20/2020 2:16 PM CDT [...] - 34.0 pg 04/20/2020 2:16 PM CDT [facility] MCHC 33.6 30.8 - 35.9 gm/dL 04/20/2020 2:[facility] Platelet Count 166 153 - 416 x10E9/L 04/20/2020 2:16 PM [facility] RDW-CV 18.7(H) 12.1 - 14.9 % 04/20/2020 2:16 PM [facility] MPV 11.2 9.4 - 12.9 fl 04/20/2020 2:16 PM [facility] Neutrophils % 87.7(H) 44.0 - 73.0 % 04/20/2020 2:16 PM [facility] Lymphocytes % 4.8(L) 20.0 - 43.0 % 04/20/2020 2:16 PM [facility] Monocytes % 3.0(L) 5.0 - 13.0 % 04/20/2020 2:16 PM [facility] Eosinophils % 0.0 0.0 - 6.0 % 04/20/2020 2:16 PM [facility] Basophils % 0.2 0.0 - 2.0 % 04/20/2020 2:16 PM [facility] Immature Granulocytes 4.3(H) 0 - 1 % 04/20/2020 2:16 PM [facility] Neutrophil Absolute 18.77(H) 2.01 - 7.14 x10E9/L 04/20/2020 2:16 PM [facility] Lymphocytes Absolute 1.02(L) 1.07 - 3.94 x10E9/L 04/20/2020 2:16 PM [facility] Monocytes Absolute 0.64 0.26 - 1.07 x10E9/L 04/20/2020 2:16 PM [facility] Eosinophils Absolute 0.01 0 - 0.47 x10E9/L 04/20/2020 2:16 PM [facility] Basophils Absolute 0.04 0 - 0.08 x10E9/L 04/20/2020 2:16 PM [facility] Immature Granulocytes Absolute 0.92(H) 0.00 - 0.06 x10E9/L 04/20/2020 2:16 PM [facility] nRBC Auto 3 /100 WBC 04/20/2020 2:16 PM CDT [facility] Blood BLOOD SPECIMEN / Unknown Lab Venipuncture / Unknown 04/20/2020 2:08 PM CDT 04/20/2020 2:12 PM CDT Turner Castillo MD LAB - HEMATOLOGY ORD ROMARIO Performing Organization Address City/[facility]/ZIP Co de Phone Number [facility] [address] [place] [phone] * AST BLOOD (04/20/2020 10:42 AM CDT) AST 27 5 - 34 U/L 04/20/2020 2:26 PM CDT [facility] Blood BLOOD SPECIMEN / Unknown Lab Venipuncture / Unknown 04/20/2020 10:42 AM CDT 04/20/2020 10:42 AM CDT Ron Quinn MD LAB - CHEMISTRY MIRI GO Performing Organization Address [facility] Co de Phone Number [facility] [address] [place] [phone] * ALT (04/20/2020 10:42 AM CDT) ALT 19 0 - 61 U/L 04/20/2020 2:26 PM CDT [facility] Blood BLOOD SPECIMEN / Unknown Lab Venipuncture / Unknown 04/20/2020 10:42 AM CDT 04/20/2020 10:42 AM CDT Ron Quinn MD LAB - CHEMISTRY MIRI GO Performing Organization Address City/[facility] Co de Phone Number [facility] [address] [place] [phone] * (ABNORMAL) RENAL FUNCTION PANEL (04/20/2020 10:42 AM CDT) Glucose 103 70 - 105 mg/dL 04/20/2020 11:08 AM CDT [facility] Sodium 135(L) 136 - 145 mmol/L 04/20/2020 11:08 AM CDT [facility] Potassium 4.0 3.5 - 5.1 mmol/L 04/20/2020 11:08 AM CDT [facility] Chloride 108(H) 98 - 107 mmol/L 04/20/2020 11:08 AM CDT [facility] CO2 24 23 - 31 mmol/L 04/20/2020 11:08 AM CDT [facility] Calcium 7.4(L) 8.4 - 10.4 mg/dL 04/20/2020 11:08 AM CDT [facility] Anion Gap 3(L) 8 - 16 mmol/L 04/20/2020 11:08 AM CDT [facility] BUN 18 7 - 18.7 mg/dL 04/20/2020 11:08 AM CDT [facility] Creatinine 0.65 0.57 - 1.11 mg/dL 04/20/2020 11:08 AM CDT [facility] Albumin 1.9(L) 3.5 - 5.2 gm/dL 04/20/2020 11:08 AM CDT [facility] Phosphorus 3.0 2.3 - 4.7 mg/dL 04/20/2020 11:08 AM CDT [facility] eGFR by MDRD >60 >60 mL/min/1.7 3m2 04/20/2020 11:08 AM CDT [facility] eGFR by MDRD >60 >60 mL/min/1.7 3m2 04/20/2020 11:08 AM CDT [facility] Blood BLOOD SPECIMEN / Unknown Lab Venipuncture / Unknown 04/20/2020 10:42 AM CDT 04/20/2020 10:42 AM CDT Clem Brown MD LAB - CHEMISTRY MIRI GO [facility] Organization Address City/State/ZIP Co de Phone Number [facility] [address] [place], [place] [phone] * (ABNORMAL) MAGNESIUM BLOOD (04/20/2020 10:42 AM CDT) [facility] Magnesium 1.5(L) 1.6 - 2.6 mg/dL 04/20/2020 11:06 AM CDT [facility] Blood BLOOD SPECIMEN / Unknown Lab Venipuncture / Unknown 04/20/2020 10:42 AM CDT 04/20/2020 10:42 AM CDT Clem Brown MD LAB - CHEMISTRY MIRI GO [facility] Organization Address City/State/ZIP Co de Phone Number [facility] [address] [place] [address] * (ABNORMAL) CBC W AUTO DIFFERENTIAL (04/20/2020 10:42 AM CDT) WBC 22.0(H) 4.4 - 10.7 x10E9/L 04/20/2020 10:51 AM CDT [facility] WBC Corrected 04/20/2020 10:51 AM CDT [facility] RBC 2.67(L) 3.80 - 5.20 x10E12/L 04/20/2020 10:51 AM CDT [facility] Hemoglobin 7.5(L) 12.0 - 15.6 gm/dL 04/20/2020 10:51 AM CDT [facility] Hematocrit 22.5(L) 35.9 - 45.5 % 04/20/2020 10:51 AM CDT [facility] MCV 84.3 80.7 - 98.3 fl 04/20/2020 10:51 AM CDT [facility] MCH 28.1 26.7 - 34.0 pg 04/20/2020 10:51 AM CDT [facility] MCHC 33.3 30.8 - 35.9 gm/dL 04/20/2020 10:51 AM CDT [facility] Platelet Count 165 153 - 416 x10E9/L 04/20/2020 10:51 AM CDT [facility] RDW-CV 18.8(H) 12.1 - 14.9 % 04/20/2020 10:51 AM CDT [facility] MPV 12.1 9.4 - 12.9 fl 04/20/2020 10:51 AM CDT [facility] Neutrophils % 83.5(H) 44.0 - 73.0 % 04/20/2020 10:51 AM CDT [facility] Lymphocytes % 6.9(L) 20.0 - 43.0 % 04/20/2020 10:51 AM CDT [facility] Monocytes % 6.2 5.0 - 13.0 % 04/20/2020 10:51 AM CDT [facility] Eosinophils % 0.0 0.0 - 6.0 % 04/20/2020 10:51 AM CDT [facility] Basophils % 0.1 0.0 - 2.0 % 04/20/2020 10:51 AM CDT [facility] Immature Granulocytes 3.3(H) 0 - 1 % 04/20/2020 10:51 AM CDT [facility] Neutrophil Absolute 18.36(H) 2.01 - 7.14 x10E9/L 04/20/2020 10:51 AM CDT [facility] Lymphocytes Absolute 1.51 1.07 - 3.94 x10E9/L 04/20/2020 10:51 AM CDT [facility] Monocytes Absolute 1.36(H) 0.26 - 1.07 x10E9/L 04/20/2020 10:51 AM CDT [facility] Eosinophils Absolute 0.01 0 - 0.47 x10E9/L 04/20/2020 10:51 AM CDT [facility] Basophils Absolute 0.03 0 - 0.08 x10E9/L 04/20/2020 10:51 AM CDT [facility] Immature Granulocytes Absolute 0.72(H) 0.00 - 0.06 x10E9/L 04/20/2020 10:51 AM CDT [facility] nRBC Auto 2 /100 WBC 04/20/2020 10:51 AM CDT [facility] Blood BLOOD SPECIMEN / Unknown Lab Venipuncture / Unknown 04/20/2020 10:42 AM CDT 04/20/2020 10:41 AM CDT Maikel Ring MD LAB - HEMATOLOGY ORDERABLES Performing Organization Address City/State/[facility] Co de Phone Number [facility] [address] [place] [address] * HAPTOGLOBIN (04/20/2020 10:42 AM CDT) [facility] Haptoglobin 65 30 - 200 mg/dL 04/20/2020 11:06 AM CDT [facility] Blood BLOOD SPECIMEN / Unknown Lab Venipuncture / Unknown 04/20/2020 10:42 AM CDT 04/20/2020 10:42 AM CDT Turner Casitllo MD LAB - CHEMISTRY MIRI GO Performing Organization Address [facility] Co de Phone Number [facility] [address] [place], [place] [phone] * (ABNORMAL) LDH BLOOD (04/20/2020 10:42 AM CDT) LDH 358(H) 125 - 220 U/L 04/20/2020 11:06 AM CDT [facility] Blood BLOOD SPECIMEN / Unknown Lab Venipuncture / Unknown 04/20/2020 10:42 AM CDT 04/20/2020 10:42 AM CDT Turner Castillo MD LAB - CHEMISTRY MIRI GO Performing Organization Address [facility] Co de Phone Number [facility] [address] [place] [address] * PTT (04/20/2020 10:41 AM CDT) Pathologist [facility] PTT 30.7 23.0 - 38.4 sec 04/20/2020 11:00 AM CDT [facility] Blood BLOOD SPECIMEN / Unknown Lab Venipuncture / Unknown 04/20/2020 10:41 AM CDT 04/20/2020 10:41 AM CDT Narrative [facility] - 04/20/2020 11:00 AM CDT Heparin Therapeutic Range for PTT: ??71.0 - 109.0 seconds. Turner Castillo MD LAB - COAGULATION OR DERABLES Performing Organization Address City/[facility] Co de Phone Number [facility] [address] [place] [address] * PT-INR (04/20/2020 10:41 AM CDT) PT 12.3 12.1 - 14.8 sec 04/20/2020 10:59 AM CDT [facility] INR 1.0 0.9 - 1.1 04/20/2020 10:59 AM CDT [facility] Blood BLOOD SPECIMEN / Unknown Lab Venipuncture / Unknown 04/20/2020 10:41 AM CDT 04/20/2020 10:41 AM CDT Narrative [facility] - 04/20/2020 10:59 AM CDT Conventional Warfarin Anticoagulant Therapy: INR Reference Range: ??2.0-3.0 Intensive Warfarin Anticoagulant Therapy: INR Reference Range: ? 2.5-3.5 Turner Castillo MD LAB - COAGULATION OR DERABLES Performing Organization Address City/State/[facility] Co de Phone Number [facility] [address] [place] [address] * TRANSFUSE RED BLOOD CELL LEUKOREDUCED UNIT(S) (04/20/2020 2:36 AM CDT) Shayna Chirinos MD NURSING - BLOOD P [facility] TRANSFUSION * TRANSFUSE RED BLOOD CELL LEUKOREDUCED UNIT(S), 1 Units (04/20/2020 2:36 AM CDT) Shayna Chirinos MD NURSING - BLOOD P [facility] TRANSFUSION * (ABNORMAL) CBC W AUTO DIFFERENTIAL (04/19/2020 9:38 PM CDT) [facility] WBC 22.0(H) 4.4 - 10.7 x10E9/L 04/19/2020 10:14 PM CDT [facility] WBC Corrected 04/19/2020 10:14 PM CDT [facility] RBC 2.18(L) 3.80 - 5.20 x10E12/L 04/19/2020 10:14 PM CDT [facility] Hemoglobin 6.4(L) 12.0 - 15.6 gm/dL 04/19/2020 10:14 PM CDT [facility] Hematocrit 18.4(LL) 35.9 - 45.5 % 04/19/2020 10:14 PM CDT [facility] MCV 84.4 80.7 - 98.3 fl 04/19/2020 10:14 PM CDT [facility] MCH 29.4 26.7 - 34.0 pg 04/19/2020 10:14 PM CDT [facility] MCHC 34.8 30.8 - 35.9 gm/dL 04/19/2020 10:14 PM CDT [facility] Platelet Count 136(L) 153 - 416 x10E9/L 04/19/2020 10:14 PM CDT [facility] RDW-CV 19.6(H) 12.1 - 14.9 % 04/19/2020 10:14 PM CDT [facility] MPV 12.9 9.4 - 12.9 fl 04/19/2020 10:14 PM CDT [facility] Neutrophils % 89.3(H) 44.0 - 73.0 % 04/19/2020 10:14 PM CDT [facility] Lymphocytes % 4.0(L) 20.0 - 43.0 % 04/19/2020 10:14 PM CDT [facility] Monocytes % 3.0(L) 5.0 - 13.0 % 04/19/2020 10:14 PM CDT [facility] Eosinophils % 0.8 0.0 - 6.0 % 04/19/2020 10:14 PM CDT [facility] Basophils % 0.1 0.0 - 2.0 % 04/19/2020 10:14 PM CDT [facility] Immature Granulocytes 2.8(H) 0 - 1 % 04/19/2020 10:14 PM CDT [facility] Neutrophil Absolute 19.62(H) 2.01 - 7.14 x10E9/L 04/19/2020 10:14 PM CDT [facility] Lymphocytes Absolute 0.87(L) 1.07 - 3.94 x10E9/L 04/19/2020 10:14 PM CDT [facility] Monocytes Absolute 0.66 0.26 - 1.07 x10E9/L 04/19/2020 10:14 PM CDT [facility] Eosinophils Absolute 0.17 0 - 0.47 x10E9/L 04/19/2020 10:14 PM CDT [facility] Basophils Absolute 0.03 0 - 0.08 x10E9/L 04/19/2020 10:14 PM CDT [facility] Immature Granulocytes Absolute 0.61(H) 0.00 - 0.06 x10E9/L 04/19/2020 10:14 PM CDT [facility] nRBC Auto 1 /100 WBC 04/19/2020 10:14 PM [facility] Blood BLOOD SPECIMEN / Unknown Lab Venipuncture / Unknown 04/19/2020 9:38 PM CDT 04/19/2020 10:03 PM CDT Turner Castillo MD LAB - HEMATOLOGY ORD ERABLES [facility] [address] [place], [place] [id number] * (ABNORMAL) CBC W AUTO DIFFERENTIAL (04/19/2020 1:44 PM CDT) WBC 19.8(H) 4.4 - 10.7 x10E9/L 04/19/2020 1:48 PM CDT [facility] WBC Corrected 04/19/2020 1:48 PM CDT [facility] RBC 2.59(L) 3.80 - 5.20 x10E12/L 04/19/2020 1:48 PM CDT [facility] Hemoglobin 7.4(L) 12.0 - 15.6 gm/dL 04/19/2020 1:48 PM CDT [facility] Hematocrit 21.5(L) 35.9 - 45.5 % 04/19/2020 1:48 PM CDT [facility] MCV 83.0 80.7 - 98.3 fl 04/19/2020 1:48 PM CDT [facility] MCH 28.6 26.7 - 34.0 pg 04/19/2020 1:48 PM CDT [facility] MCHC 34.4 30.8 - 35.9 gm/dL 04/19/2020 1:48 PM CDT [facility] Platelet Count 146(L) 153 - 416 x10E9/L 04/19/2020 1:48 PM CDT [facility] RDW-CV 19.3(H) 12.1 - 14.9 % 04/19/2020 1:48 PM CDT [facility] MPV 11.8 9.4 - 12.9 fl 04/19/2020 1:48 PM CDT [facility] Neutrophils % 90.8(H) 44.0 - 73.0 % 04/19/2020 1:48 PM CDT [facility] Lymphocytes % 4.6(L) 20.0 - 43.0 % 04/19/2020 1:48 PM CDT [facility] Monocytes % 2.3(L) 5.0 - 13.0 % 04/19/2020 1:48 PM CDT [facility] Eosinophils % 0.0 0.0 - 6.0 % 04/19/2020 1:48 PM CDT [facility] Basophils % 0.2 0.0 - 2.0 % 04/19/2020 1:48 PM CDT [facility] Immature Granulocytes 2.1(H) 0 - 1 % 04/19/2020 1:48 PM CDT [facility] Neutrophil Absolute 17.95(H) 2.01 - 7.14 x10E9/L 04/19/2020 1:48 PM CDT [facility] Lymphocytes Absolute 0.91(L) 1.07 - 3.94 x10E9/L 04/19/2020 1:48 PM CDT [facility] Monocytes Absolute 0.46 0.26 - 1.07 x10E9/L 04/19/2020 1:48 PM CDT [facility] Eosinophils Absolute 0.00 0 - 0.47 x10E9/L 04/19/2020 1:48 PM CDT [facility] Basophils Absolute 0.03 0 - 0.08 x10E9/L 04/19/2020 1:48 PM CDT [facility] Immature Granulocytes Absolute 0.41(H) 0.00 - 0.06 x10E9/L 04/19/2020 1:48 PM CDT [facility] nRBC Auto 1 /100 WBC 04/19/2020 1:48 PM CDT [facility] Blood BLOOD SPECIMEN / Unknown Venipuncture / Unknown 04/19/2020 1:44 PM CDT 04/19/2020 1:43 PM CDT Turner Castillo MD LAB - HEMATOLOGY ORD ERABLES [facility] [address] [place] [address] * (ABNORMAL) GLUCOSE - POINT OF CARE (04/19/2020 9:02 AM CDT) [facility] Glucose WB/POC 122(H) 70 - 106 mg/dL 04/19/2020 11:57 PM CDT [facility] Specimen Type Arterial/C apillary 04/19/2020 11:57 PM CDT [facility] Blood BLOOD SPECIMEN / Unknown 04/19/2020 9:02 AM CDT 04/19/2020 11:57 PM CDT Phuong Frazier MD LAB - POINT OF CARE ORDERABLES [facility] [address] [place] [address] * (ABNORMAL) RENAL FUNCTION PANEL (04/19/2020 3:51 AM CDT) Glucose 136(H) 70 - 105 mg/dL 04/19/2020 4:40 AM CDT [facility] Sodium 137 136 - 145 mmol/L 04/19/2020 4:40 AM CDT [facility] Potassium 4.2 3.5 - 5.1 mmol/L 04/19/2020 4:40 AM CDT [facility] Chloride 112(H) 98 - 107 mmol/L 04/19/2020 4:40 AM CDT [facility] CO2 19(L) 23 - 31 mmol/L 04/19/2020 4:40 AM CDT [facility] Calcium 7.0(LL) 8.4 - 10.4 mg/dL 04/19/2020 4:40 AM CDT [facility] Anion Gap 6(L) 8 - 16 mmol/L 04/19/2020 4:40 AM CDT [facility] BUN 23(H) 7 - 18.7 mg/dL 04/19/2020 4:40 AM CDT [facility] Creatinine 0.84 0.57 - 1.11 mg/dL 04/19/2020 4:40 AM CDT [facility] Albumin 1.7(L) 3.5 - 5.2 gm/dL 04/19/2020 4:40 AM CDT [facility] Phosphorus 4.0 2.3 - 4.7 mg/dL 04/19/2020 4:40 AM CDT [facility] eGFR by MDRD >60 >60 mL/min/1.7 3m2 04/19/2020 4:40 AM CDT [facility] eGFR by MDRD >60 >60 mL/min/1.7 3m2 04/19/2020 4:40 AM CDT [facility] Blood BLOOD SPECIMEN / Unknown Venipuncture / Unknown 04/19/2020 3:51 AM CDT 04/19/2020 4:05 AM CDT Clem Brown MD LAB - CHEMISTRY MIRI GO Performing Organization Address [facility] Co de Phone Number [facility] [address] [place] [address] * (ABNORMAL) MAGNESIUM BLOOD (04/19/2020 3:51 AM CDT) Pathologist [facility] Magnesium 1.4(L) 1.6 - 2.6 mg/dL 04/19/2020 4:32 AM CDT [facility] Blood BLOOD SPECIMEN / Unknown Venipuncture / Unknown 04/19/2020 3:51 AM CDT 04/19/2020 4:05 AM CDT Clem Brown MD LAB - CHEMISTRY MIRI GO Performing Organization Address [facility] Co de Phone Number [facility] [address] [place] [address] * LACTIC ACID BLOOD (04/19/2020 3:51 AM CDT) Pathologist [facility] Lactic Acid 1.2 0.5 - 2.2 mmol/L 04/19/2020 4:27 AM CDT [facility] Blood BLOOD SPECIMEN / Unknown Venipuncture / Unknown 04/19/2020 3:51 AM CDT 04/19/2020 4:05 AM CDT Maikel Ring MD LAB - CHEMISTRY O [place] Performing Organization Address [facility] Co de Phone Number [facility] [address] [place] [address] * (ABNORMAL) CBC W AUTO DIFFERENTIAL (04/19/2020 3:51 AM CDT) WBC 19.6(H) 4.4 - 10.7 x10E9/L 04/19/2020 4:19 AM CDT [facility] WBC Corrected 04/19/2020 4:19 AM CDT [facility] RBC 2.70(L) 3.80 - 5.20 x10E12/L 04/19/2020 4:19 AM CDT [facility] Hemoglobin 7.6(L) 12.0 - 15.6 gm/dL 04/19/2020 4:19 AM CDT [facility] Hematocrit 21.7(L) 35.9 - 45.5 % 04/19/2020 4:19 AM CDT [facility] MCV 80.4(L) 80.7 - 98.3 fl 04/19/2020 4:19 AM CDT [facility] MCH 28.1 26.7 - 34.0 pg 04/19/2020 4:19 AM CDT [facility] MCHC 35.0 30.8 - 35.9 gm/dL 04/19/2020 4:19 AM CDT [facility] Platelet Count 124(L) 153 - 416 x10E9/L 04/19/2020 4:19 AM [facility] RDW-CV 18.2(H) 12.1 - 14.9 % 04/19/2020 4:19 AM CDT [facility] MPV 12.5 9.4 - 12.9 fl 04/19/2020 4:19 AM [facility] Neutrophils % 85.7(H) 44.0 - 73.0 % 04/19/2020 4:19 AM CDT [facility] Lymphocytes % 6.7(L) 20.0 - 43.0 % 04/19/2020 4:19 AM CDT [facility] Monocytes % 6.7 5.0 - 13.0 % 04/19/2020 4:19 AM T [facility] Eosinophils % 0.0 0.0 - 6.0 % 04/19/2020 4:19 AM [facility] Basophils % 0.1 0.0 - 2.0 % 04/19/2020 4:19 AM CDT [facility] Immature Granulocytes 0.8 0 - 1 % 04/19/2020 4:19 AM CDT [facility] Neutrophil Absolute 16.84(H) 2.01 - 7.14 x10E9/L 04/19/2020 4:19 AM CDT [facility] Lymphocytes Absolute 1.32 1.07 - 3.94 x10E9/L 04/19/2020 4:19 AM CDT [facility] Monocytes Absolute 1.31(H) 0.26 - 1.07 x10E9/L 04/19/2020 4:19 AM CDT [facility] Eosinophils Absolute 0.00 0 - 0.47 x10E9/L 04/19/2020 4:19 AM CDT [facility] Basophils Absolute 0.02 0 - 0.08 x10E9/L 04/19/2020 4:19 AM CDT [facility] Immature Granulocytes Absolute 0.15(H) 0.00 - 0.06 x10E9/L 04/19/2020 4:19 AM CDT [facility] nRBC Auto 1 /100 WBC 04/19/2020 4:19 AM CDT [facility] Blood BLOOD SPECIMEN / Unknown Venipuncture / Unknown 04/19/2020 3:51 AM CDT 04/19/2020 4:05 AM CDT Clem Brown MD LAB - HEMATOLOGY ORD ERABLES Performing Organization Address City/[facility]/ZIP Co de Phone Number [facility] [address] [place] [phone] * (ABNORMAL) HAPTOGLOBIN (04/19/2020 3:51 AM CDT) Haptoglobin 9(L) 30 - 200 mg/dL 04/19/2020 4:36 AM CDT [facility] Blood BLOOD SPECIMEN / Unknown Venipuncture / Unknown 04/19/2020 3:51 AM CDT 04/19/2020 4:05 AM CDT Heraclio Dave MD LAB - CHEMISTRY MIRI GO [facility] [address] [place] [address] * PT PTT PANEL (04/19/2020 3:50 AM CDT) PT 12.6 12.1 - 14.8 sec 04/19/2020 4:27 AM CDT [facility] INR 1.0 0.9 - 1.1 04/19/2020 4:27 AM CDT [facility] PTT 27.8 23.0 - 38.4 sec 04/19/2020 4:27 AM CDT [facility] Blood BLOOD SPECIMEN / Unknown Venipuncture / Unknown 04/19/2020 3:50 AM CDT 04/19/2020 4:05 AM CDT Narrative [facility] - 04/19/2020 4:27 AM CDT Conventional Warfarin Anticoagulant Therapy: INR Reference Range: ??2.0-3.0 Intensive Warfarin Anticoagulant Therapy: INR Reference Range: ? 2.5-3.5 Heparin Therapeutic Range for PTT: ??71.0 - 109.0 seconds. Clem Brown MD LAB - COAGULATION OR DERABLES Performing Organization Address City/[facility]/ZIP Co de Phone Number [facility] [address] [place] [address] * TRANSFUSE RED BLOOD CELL LEUKOREDUCED UNIT(S) (04/19/2020 1:10 AM CDT) Maikel Ring MD NURSING - BLOOD P [place] TRANSFUSION * TRANSFUSE RED BLOOD CELL LEUKOREDUCED UNIT(S), 1 Units (04/19/2020 1:10 AM CDT) Maikel Ring MD NURSING - BLOOD P [place] TRANSFUSION * (ABNORMAL) GLUCOSE - POINT OF CARE (04/18/2020 11:42 PM CDT) [facility] Glucose WB/POC 127(H) 70 - 106 mg/dL 04/18/2020 11:52 PM CDT [facility] Specimen Type Arterial/C apillary 04/18/2020 11:52 PM CDT [facility] Blood BLOOD SPECIMEN / Unknown 04/18/2020 11:42 PM CDT 04/18/2020 11:52 PM CDT Phuong Frazier MD LAB - POINT OF CARE ORDERABLES Performing Organization Address [facility]/ZIP Co de Phone Number [facility] [address] [place], [place] [phone] * TRANSFUSE RED BLOOD CELL LEUKOREDUCED UNIT(S) (04/18/2020 11:39 PM CDT) Mayuri Norton MD NURSING - BLOOD PROD TRANSFUSION * TRANSFUSE RED BLOOD CELL LEUKOREDUCED UNIT(S), 2 Units (04/18/2020 11:39 PM CDT) Mayuri Norton MD NURSING - BLOOD PROD TRANSFUSION * PT PTT PANEL (04/18/2020 10:22 PM CDT) Pathologist [facility] PT 13.3 12.1 - 14.8 sec 04/18/2020 10:44 PM CDT [facility] INR 1.1 0.9 - 1.1 04/18/2020 10:44 PM CDT [facility] PTT 29.4 23.0 - 38.4 sec 04/18/2020 10:44 PM CDT [facility] Blood BLOOD SPECIMEN / Unknown Venipuncture / Unknown 04/18/2020 10:22 PM CDT 04/18/2020 10:28 PM CDT [facility] - 04/18/2020 10:44 PM CDT Conventional Warfarin Anticoagulant Therapy: INR Reference Range: ??2.0-3.0 Intensive Warfarin Anticoagulant Therapy: INR Reference Range: ? 2.5-3.5 Heparin Therapeutic Range for PTT: ??71.0 - 109.0 seconds. Clem Brown MD LAB - COAGULATION OR DERABLES [facility] [address] [place] [phone] * (ABNORMAL) CBC W AUTO DIFFERENTIAL (04/18/2020 10:22 PM CDT) Pathologist [facility] WBC 19.4(H) 4.4 - 10.7 x10E9/L 04/18/2020 10:48 PM CDT [facility] WBC Corrected 04/18/2020 10:48 PM CDT [facility] RBC 2.34(L) 3.80 - 5.20 x10E12/L 04/18/2020 10:48 PM CDT [facility] Hemoglobin 6.8(L) 12.0 - 15.6 gm/dL 04/18/2020 10:48 PM CDT [facility] Hematocrit 19.0(LL) 35.9 - 45.5 % 04/18/2020 10:48 PM CDT [facility] MCV 81.2 80.7 - 98.3 fl 04/18/2020 10:48 PM CDT [facility] MCH 29.1 26.7 - 34.0 pg 04/18/2020 10:48 PM CDT [facility] MCHC 35.8 30.8 - 35.9 gm/dL 04/18/2020 10:48 PM CDT [facility] Platelet Count 103(L) 153 - 416 x10E9/L 04/18/2020 10:48 PM [facility] RDW-CV 16.9(H) 12.1 - 14.9 % 04/18/2020 10:48 PM [facility] MPV 13.9(H) 9.4 - 12.9 fl 04/18/2020 10:48 PM [facility] Neutrophils % 91.3(H) 44.0 - 73.0 % 04/18/2020 10:48 PM [facility] Lymphocytes % 4.9(L) 20.0 - 43.0 % 04/18/2020 10:48 PM [facility] Monocytes % 3.1(L) 5.0 - 13.0 % 04/18/2020 10:48 PM [facility] Eosinophils % 0.0 0.0 - 6.0 % 04/18/2020 10:48 PM [facility] Basophils % 0.1 0.0 - 2.0 % 04/18/2020 10:48 PM [facility] Immature Granulocytes 0.6 0 - 1 % 04/18/2020 10:48 PM [facility] Neutrophil Absolute 17.74(H) 2.01 - 7.14 x10E9/L 04/18/2020 10:48 PM [facility] Lymphocytes Absolute 0.96(L) 1.07 - 3.94 x10E9/L 04/18/2020 10:48 PM [facility] Monocytes Absolute 0.60 0.26 - 1.07 x10E9/L 04/18/2020 10:48 PM [facility] Eosinophils Absolute 0.00 0 - 0.47 x10E9/L 04/18/2020 10:48 PM T [facility] Basophils Absolute 0.02 0 - 0.08 x10E9/L 04/18/2020 10:48 PM [facility] Immature Granulocytes Absolute 0.12(H) 0.00 - 0.06 x10E9/L 04/18/2020 10:48 PM [facility] nRBC Auto 0 /100 WBC 04/18/2020 10:48 PM CDT [facility] Blood BLOOD SPECIMEN / Unknown Venipuncture / Unknown 04/18/2020 10:22 PM CDT 04/18/2020 10:28 PM CDT Clem Brown MD LAB - HEMATOLOGY ORD ERABLES [facility] [address] [place] [address] * (ABNORMAL) GLUCOSE - POINT OF CARE (04/18/2020 8:54 PM CDT) Glucose WB/POC 128(H) 70 - 106 mg/dL 04/18/2020 11:52 PM CDT [facility] Specimen Type Arterial/C apillary 04/18/2020 11:52 PM CDT [facility] Blood BLOOD SPECIMEN / Unknown 04/18/2020 8:54 PM CDT 04/18/2020 11:52 PM CDT Phuong Frazier MD LAB - POINT OF CARE ORDERABLES Performing Organization Address City/[facility]/ZIP Co de Phone Number [facility] [address] [place] [address] * PT PTT PANEL (04/18/2020 6:09 PM CDT) PT 13.4 12.1 - 14.8 sec 04/18/2020 6:33 PM CDT [facility] INR 1.1 0.9 - 1.1 04/18/2020 6:33 PM CDT [facility] PTT 32.0 23.0 - 38.4 sec 04/18/2020 6:33 PM CDT [facility] Blood BLOOD SPECIMEN / Unknown Venipuncture / Unknown 04/18/2020 6:09 PM CDT 04/18/2020 6:15 PM CDT Narrative [facility] - 04/18/2020 6:33 PM CDT Conventional Warfarin Anticoagulant Therapy: INR Reference Range: ??2.0-3.0 Intensive Warfarin Anticoagulant Therapy: INR Reference Range: ? 2.5-3.5 Heparin Therapeutic Range for PTT: ??71.0 - 109.0 seconds. Clem Brown MD LAB - COAGULATION OR DERABLES [facility] [address] [place] [address] * (ABNORMAL) CBC W AUTO DIFFERENTIAL (04/18/2020 6:09 PM CDT) WBC 17.3(H) 4.4 - 10.7 x10E9/L 04/18/2020 6:28 PM CDT [facility] WBC Corrected 04/18/2020 6:28 PM CDT [facility] RBC 2.67(L) 3.80 - 5.20 x10E12/L 04/18/2020 6:28 PM CDT [facility] Hemoglobin 7.4(L) 12.0 - 15.6 gm/dL 04/18/2020 6:28 PM CDT [facility] Hematocrit 21.7(L) 35.9 - 45.5 % 04/18/2020 6:28 PM CDT [facility] MCV 81.3 80.7 - 98.3 fl 04/18/2020 6:28 PM CDT [facility] MCH 27.7 26.7 - 34.0 pg 04/18/2020 6:28 PM CDT [facility] MCHC 34.1 30.8 - 35.9 gm/dL 04/18/2020 6:28 PM CDT [facility] Platelet Count 73(L) 153 - 416 x10E9/L 04/18/2020 6:28 PM CDT [facility] RDW-CV 16.6(H) 12.1 - 14.9 % 04/18/2020 6:28 PM CDT [facility] Neutrophils % 91.1(H) 44.0 - 73.0 % 04/18/2020 6:28 PM CDT [facility] Lymphocytes % 5.9(L) 20.0 - 43.0 % 04/18/2020 6:28 PM CDT [facility] Monocytes % 2.2(L) 5.0 - 13.0 % 04/18/2020 6:28 PM CDT [facility] Eosinophils % 0.0 0.0 - 6.0 % 04/18/2020 6:28 PM CDT [facility] Basophils % 0.1 0.0 - 2.0 % 04/18/2020 6:28 PM CDT [facility] Immature Granulocytes 0.7 0 - 1 % 04/18/2020 6:28 PM CDT [facility] Neutrophil Absolute 15.79(H) 2.01 - 7.14 x10E9/L 04/18/2020 6:28 PM CDT [facility] Lymphocytes Absolute 1.02(L) 1.07 - 3.94 x10E9/L 04/18/2020 6:28 PM CDT [facility] Monocytes Absolute 0.38 0.26 - 1.07 x10E9/L 04/18/2020 6:28 PM CDT [facility] Eosinophils Absolute 0.00 0 - 0.47 x10E9/L 04/18/2020 6:28 PM CDT [facility] Basophils Absolute 0.02 0 - 0.08 x10E9/L 04/18/2020 6:28 PM CDT [facility] Immature Granulocytes Absolute 0.12(H) 0.00 - 0.06 x10E9/L 04/18/2020 6:28 PM CDT [facility] nRBC Auto 0 /100 WBC 04/18/2020 6:28 PM CDT [facility] Blood BLOOD SPECIMEN / Unknown Venipuncture / Unknown 04/18/2020 6:09 PM CDT 04/18/2020 6:15 PM CDT Clem Brown MD LAB - HEMATOLOGY ORD ERABLES [facility] [address] [place] [address] * GLUCOSE - POINT OF CARE (04/18/2020 4:49 PM CDT) [facility] Glucose WB/POC 103 70 - 106 mg/dL 04/18/2020 11:52 PM CDT [facility] Specimen Type Arterial/C apillary 04/18/2020 11:52 PM CDT [facility] Blood BLOOD SPECIMEN / Unknown 04/18/2020 4:49 PM CDT 04/18/2020 11:52 PM CDT Phuong Frazier MD LAB - POINT OF CARE ORDERABLES [facility] [address] [place] [address] * XR ABDOMEN KUB (04/18/2020 4:29 PM [...] Auto 12.4 x10E9/L 04/18/2020 3:46 PM CDT [facility] WBC Corrected 04/18/2020 3:46 PM CDT [facility] nRBC 04/18/2020 3:46 PM CDT [facility] Neutrophil % Manual 86(H) 44 - 73 % 04/18/2020 3:46 PM CDT [facility] Lymphocytes % Manual 5(L) 20 - 43 % 04/18/2020 3:46 PM CDT [facility] Monocytes % Manual 2(L) 5 - 13 % 04/18/2020 3:46 PM CDT [facility] Atypical Lymphocyte % Manual 7(H) <=0 % 04/18/2020 3:46 PM CDT [facility] Cells Counted 100 # cells 04/18/2020 3:46 PM CDT [facility] Platelet Estimation Decreased( A) Normal, Adequate platelets 04/18/2020 3:46 PM CDT [facility] WBC Morph Normal 04/18/2020 3:46 PM CDT [facility] Anisocytosis 1+(A) None 04/18/2020 3:46 PM CDT [facility] Blood BLOOD SPECIMEN / Unknown Venipuncture / Unknown 04/18/2020 2:29 PM CDT 04/18/2020 2:51 PM CDT Clem Brown MD LAB - HEMATOLOGY ORD ERABLES [facility] [address] [place] [address] * PT PTT PANEL (04/18/2020 2:29 PM CDT) PT 13.8 12.1 - 14.8 sec 04/18/2020 3:16 PM CDT [facility] INR 1.1 0.9 - 1.1 04/18/2020 3:16 PM CDT [facility] PTT 33.5 23.0 - 38.4 sec 04/18/2020 3:16 PM CDT [facility] Blood BLOOD SPECIMEN / Unknown Venipuncture / Unknown 04/18/2020 2:29 PM CDT 04/18/2020 2:51 PM CDT Narrative [facility] - 04/18/2020 3:16 PM CDT Conventional Warfarin Anticoagulant Therapy: INR Reference Range: ??2.0-3.0 Intensive Warfarin Anticoagulant Therapy: INR Reference Range: ? 2.5-3.5 Heparin Therapeutic Range for PTT: ??71.0 - 109.0 seconds. Clem Brown MD LAB - COAGULATION OR DERABLES Performing Organization Address City/[facility]/ZIP Co de Phone Number [facility] [address] [place] [address] * (ABNORMAL) CBC W AUTO DIFFERENTIAL (04/18/2020 2:29 PM CDT) WBC 12.4(H) 4.4 - 10.7 x10E9/L 04/18/2020 3:13 PM CDT [facility] WBC Corrected 04/18/2020 3:13 PM CDT [facility] RBC 2.65(L) 3.80 - 5.20 x10E12/L 04/18/2020 3:13 PM CDT [facility] Hemoglobin 7.7(L) 12.0 - 15.6 gm/dL 04/18/2020 3:13 PM CDT [facility] Hematocrit 21.9(L) 35.9 - 45.5 % 04/18/2020 3:13 PM CDT [facility] MCV 82.6 80.7 - 98.3 fl 04/18/2020 3:13 PM CDT [facility] MCH 29.1 26.7 - 34.0 pg 04/18/2020 3:13 PM CDT [facility] MCHC 35.2 30.8 - 35.9 gm/dL 04/18/2020 3:13 PM CDT [facility] Platelet Count 48(L) 153 - 416 x10E9/L 04/18/2020 3:13 PM CDT [facility] RDW-CV 16.6(H) 12.1 - 14.9 % 04/18/2020 3:13 PM CDT [facility] nRBC Auto 0 /100 WBC 04/18/2020 3:13 PM CDT [facility] Blood BLOOD SPECIMEN / Unknown Venipuncture / Unknown 04/18/2020 2:29 PM CDT 04/18/2020 2:51 PM CDT Clem Brown MD LAB - HEMATOLOGY ORD ERABLES [facility] [address] [place] [address] * GLUCOSE - POINT OF CARE (04/18/2020 2:28 PM CDT) [facility] Glucose WB/POC 80 70 - 106 mg/dL 04/18/2020 2:43 PM CDT [facility] Specimen Type Arterial/C apillary 04/18/2020 2:43 PM CDT [facility] Blood BLOOD SPECIMEN / Unknown 04/18/2020 2:28 PM CDT 04/18/2020 2:43 PM CDT Phuong Frazier MD LAB - POINT OF CARE ORDERABLES Performing Organization Address [facility]/ZIP Co de Phone Number [facility] [address] [place] [address] * (ABNORMAL) LACTIC ACID BLOOD (04/18/2020 12:25 PM CDT) [facility] Lactic Acid 2.8(H) 0.5 - 2.2 mmol/L 04/18/2020 1:30 PM CDT [facility] Blood BLOOD SPECIMEN / Unknown Venipuncture / Unknown 04/18/2020 12:25 PM CDT 04/18/2020 12:52 PM CDT Clem Brown MD LAB - CHEMISTRY MIRI GO Performing Organization Address [facility] Co de Phone Number [facility] [address] [place] [address] * (ABNORMAL) BLOOD GASES ARTERIAL (04/18/2020 12:21 PM CDT) [facility] pH Arterial 7.39 7.35 - 7.45 pH 04/18/2020 12:30 PM CDT [facility] pCO2 Arterial 34(L) 35 - 45 mm hg 04/18/2020 12:30 PM CDT [facility] Comment:L pO2 Arterial 108(H) 80 - 100 mm hg 04/18/2020 12:30 PM CDT [facility] Comment:H HCO3 Arterial 20(L) 22 - 26 mmol/L 04/18/2020 12:30 PM CDT [facility] Comment:L BE Arterial -4.3(L) -2.0 - 2.0 mmol/L 04/18/2020 12:30 PM CDT [facility] Comment:L O2 Saturation Arterial 98 90 - 100 % 04/18/2020 12:30 PM CDT [facility] Hemoglobin Arterial 8.4(L) 14.0 - 16.0 gm/dL 04/18/2020 12:30 PM CDT [facility] Carboxyhemoglobin Arterial 0.3 0.0 - 2.5 % 04/18/2020 12:30 PM CDT [facility] Methemoglobin Arterial 1.2 0.0 - 2.0 % 04/18/2020 12:30 PM CDT [facility] Oxyhemoglobin Arterial 96 % 04/18/2020 12:30 PM CDT [facility] Mode CMV 04/18/2020 12:30 PM CDT [facility] Aamir's Test N/A 04/18/2020 12:30 PM CDT [facility] FI O2 30 % 04/18/2020 12:30 PM CDT [facility] Tidal Volume 450 mL 04/18/2020 12:30 PM CDT [facility] PEEP (cmH2O) 8.0 04/18/2020 12:30 PM CDT [facility] Respiratory Rate 20.0 04/18/20 20 12:30 PM CDT [facility] Sample Site Art Line 04/18/2020 12:30 PM CDT [facility] Sample Type Arterial 04/18/2020 12:30 PM CDT [facility] Brazing Machine Feeder ID [id number] 04/18/2020 12:30 PM CDT [facility] Blood, arterial ARTERIAL BLOOD SPECIMEN / Unknown 04/18/2020 12:21 PM CDT 04/18/2020 12:21 PM CDT Clem Brown MD LAB - BLOOD GASES OR DERABLES [facility] [address] [phone] * TRANSFUSE RED BLOOD CELL LEUKOREDUCED UNIT(S) (04/18/2020 11:52 AM CDT) Mayuri Norton MD NURSING - BLOOD PROD TRANSFUSION * (ABNORMAL) GLUCOSE - POINT OF CARE (04/18/2020 11:17 AM CDT) [facility] Glucose WB/POC 118(H) 70 - 106 mg/dL 04/18/2020 2:43 PM CDT [facility] Specimen Type Arterial/C apillary 04/18/2020 2:43 PM CDT [facility] Blood BLOOD SPECIMEN / Unknown 04/18/2020 11:17 AM CDT 04/18/2020 2:43 PM CDT Phuong Frazier MD LAB - POINT OF CARE ORDERABLES Performing Organization Address City/State/[facility] Co de Phone Number [facility] [address] [place] [address] * TRANSFUSE FRESH FROZEN PLASMA UNIT(S) (04/18/2020 [...] BLOOD GASES ARTERIAL (04/18/2020 9:57 AM CDT) [facility] pH Arterial 7.35 7.35 - 7.45 pH 04/18/2020 10:05 AM CDT [facility] Comment:L pCO2 Arterial 33(L) 35 - 45 mm hg 04/18/2020 10:05 AM [facility] Comment:L pO2 Arterial 127(H) 80 - 100 mm hg 04/18/2020 10:05 AM [facility] Comment:H HCO3 Arterial 18(L) 22 - 26 mmol/L 04/18/2020 10:05 AM [facility] Comment:L BE Arterial -7.4(L) -2.0 - 2.0 mmol/L 04/18/2020 10:05 AM [facility] Comment:L O2 Saturation Arterial 98 90 - 100 % 04/18/2020 10:05 AM [facility] Hemoglobin Arterial 6.0(L) 14.0 - 16.0 gm/dL 04/18/2020 10:05 AM [facility] Carboxyhemoglobin Arterial 0.3 0.0 - 2.5 % 04/18/2020 10:05 AM [facility] Methemoglobin Arterial 1.4 0.0 - 2.0 % 04/18/2020 10:05 AM [facility] Oxyhemoglobin Arterial 96 % 04/18/2020 10:05 AM [facility] Mode CMV 04/18/2020 10:05 AM [facility] Aamir's Test N/A 04/18/2020 10:05 AM [facility] FI O2 30 % 04/18/2020 10:05 AM [facility] Tidal Volume 450 mL 04/18/2020 10:05 AM [facility] PEEP (cmH2O) 8.0 04/18/2020 10:05 AM [facility] Respiratory Rate 20.0 04/18/20 20 10:05 AM [facility] Sample Site Art Line 04/18/2020 10:05 AM [facility] Sample Type Arterial 04/18/2020 10:05 AM [facility] [employer] ID [id number] 04/18/2020 10:05 AM [facility] Blood, arterial ARTERIAL BLOOD SPECIMEN / Unknown 04/18/2020 9:57 AM CDT 04/18/2020 9:57 AM CDT Snehal Crowe MD LAB - BLOO D GASES ORDERABLES Performing Organization Address City/State/[facility] Co de Phone Number [facility] [address] [place] [address] * (ABNORMAL) LACTIC ACID BLOOD (04/18/2020 9:37 AM CDT) [facility] Lactic Acid 4.6(HH) 0.5 - 2.2 mmol/L 04/18/2020 10:12 AM CDT [facility] Blood BLOOD SPECIMEN / Unknown Venipuncture / Unknown 04/18/2020 9:37 AM CDT 04/18/2020 9:41 AM CDT Snehal Crowe MD LAB - CHEM ISTRY ORDERABLES Performing Organization Address [facility] Co de Phone Number [facility] [address] [place] [address] * (ABNORMAL) CBC W AUTO DIFFERENTIAL (04/18/2020 9:30 AM CDT) [facility] WBC 16.9(H) 4.4 - 10.7 x10E9/L 04/18/2020 9:59 AM CDT [facility] WBC Corrected 04/18/2020 9:59 AM CDT [facility] RBC 2.20(L) 3.80 - 5.20 x10E12/L 04/18/2020 9:59 AM CDT [facility] Hemoglobin 6.3(L) 12.0 - 15.6 gm/dL 04/18/2020 9:59 AM CDT [facility] Hematocrit 18.8(LL) 35.9 - 45.5 % 04/18/2020 9:59 AM CDT [facility] MCV 85.5 80.7 - 98.3 fl 04/18/2020 9:59 AM CDT [facility] MCH 28.6 26.7 - 34.0 pg 04/18/2020 9:59 AM CDT [facility] MCHC 33.5 30.8 - 35.9 gm/dL 04/18/2020 9:59 AM CDT [facility] Platelet Count 54(L) 153 - 416 x10E9/L 04/18/2020 9:59 AM CDT [facility] RDW-CV 15.9(H) 12.1 - 14.9 % 04/18/2020 9:59 AM CDT [facility] Neutrophils % 90.6(H) 44.0 - 73.0 % 04/18/2020 9:59 AM CDT [facility] Lymphocytes % 4.3(L) 20.0 - 43.0 % 04/18/2020 9:59 AM CDT [facility] Monocytes % 2.2(L) 5.0 - 13.0 % 04/18/2020 9:59 AM CDT [facility] Eosinophils % 1.2 0.0 - 6.0 % 04/18/2020 9:59 AM CDT [facility] Basophils % 0.2 0.0 - 2.0 % 04/18/2020 9:59 AM CDT [facility] Immature Granulocytes 1.5(H) 0 - 1 % 04/18/2020 9:59 AM CDT [facility] Neutrophil Absolute 15.33(H) 2.01 - 7.14 x10E9/L 04/18/2020 9:59 AM CDT [facility] Lymphocytes Absolute 0.73(L) 1.07 - 3.94 x10E9/L 04/18/2020 9:59 AM CDT [facility] Monocytes Absolute 0.38 0.26 - 1.07 x10E9/L 04/18/2020 9:59 AM CDT [facility] Eosinophils Absolute 0.21 0 - 0.47 x10E9/L 04/18/2020 9:59 AM CDT [facility] Basophils Absolute 0.03 0 - 0.08 x10E9/L 04/18/2020 9:59 AM T [facility] Immature Granulocytes Absolute 0.26(H) 0.00 - 0.06 x10E9/L 04/18/2020 9:59 AM CDT [facility] nRBC Auto 0 /100 WBC 04/18/2020 9:59 AM T [facility] Blood BLOOD SPECIMEN / Unknown Venipuncture / Unknown 04/18/2020 9:30 AM CDT 04/18/2020 9:42 AM CDT Clem Brown MD LAB - HEMATOLOGY ORD ERABLES [facility] [address] [place] [address] * IMMUNOGLOBULINS IGG/IGM/IGA PANEL (04/18/2020 9:30 AM CDT) Pathologist [facility] IgA 82 65 - 421 mg/dL 04/18/2020 3:33 PM CDT [facility] IgG 1,629 552-1,631 mg/dL 04/18/2020 3:33 PM CDT [facility] IgM 149 33 - 293 mg/dL 04/18/2020 3:33 PM CDT [facility] Blood BLOOD SPECIMEN / Unknown Venipuncture / Unknown 04/18/2020 9:30 AM CDT 04/18/2020 9:42 AM CDT Heraclio Dave MD LAB - CHEMISTRY MIRI GO Performing Organization Address [facility]/ZIP Co de Phone Number [facility] [address] [place] [address] * (ABNORMAL) LDH BLOOD (04/18/2020 9:30 AM CDT) [facility] LDH 337(H) 125 - 220 U/L 04/18/2020 10:14 AM CDT [facility] Blood BLOOD SPECIMEN / Unknown Venipuncture / Unknown 04/18/2020 9:30 AM CDT 04/18/2020 9:42 AM CDT Heraclio Dave MD LAB - CHEMISTRY MIRI GO [facility] [address] [place] [address] * (ABNORMAL) RETIC COUNT (04/18/2020 9:30 AM CDT) [facility] Reticulocyte Count 1.77(H) 0.5 - 1.7 % 04/18/2020 9:52 AM CDT [facility] Reticulocyte Absolute 0.0384 0.0041 - 0.0971 x10E6/uL 04/18/2020 9:52 AM CDT [facility] Reticulocyte Immature Fractionated 36.6(H) 0.9 - 14.3 % 04/18/2020 9:52 AM CDT [facility] Hemoglobin Retic 30.2 27.8 - 36.8 pg 04/18/2020 9:52 AM CDT [facility] Blood BLOOD SPECIMEN / Unknown Venipuncture / Unknown 04/18/2020 9:30 AM CDT 04/18/2020 9:42 AM CDT Heraclio Dave MD LAB - HEMATOLOGY ORD ERABLES Performing Organization Address City/[facility]/ZIP Co de Phone Number [facility] [address] [place] [phone] * VITAMIN B12 (04/18/2020 9:30 AM CDT) Vitamin B12 220 213 - 816 pg/mL 04/18/2020 10:43 AM CDT [facility] Blood BLOOD SPECIMEN / Unknown Venipuncture / Unknown 04/18/2020 9:30 AM CDT 04/18/2020 9:42 AM CDT Heraclio Dave MD LAB - CHEMISTRY ORDE RABMARTIN Performing Organization Address City/[facility] Co de Phone Number [facility] [address] [place] [address] * REF LAB COMMENT (04/18/2020 9:29 AM CDT) Comment Comment 04/20/2020 7:06 PM CDT [facility] ([facility]) Comment: Severe deficiency of EEWSVV07 (less than 10% activity) is a relatively specific finding in patients with a clinical diagnosis of either hereditary or acquired thrombotic thrombocytopenic purpura (TTP). Normal to moderately reduced REFDCV70 activity results do not exclude a diagnosis of TTP. Conditions that could have AXLASM05 activity greater than 10% include hemolytic uremic syndrome (HUS), atypical hemolytic uremic syndrome (aHUS), and other thrombotic microangiopathies associated with hematopoietic stem cell and solid organ transplantation, liver disease, DIC, sepsis, , or effects of certain medications (eg, clopidogrel, cyclosporine, mitomycin C, quinine). Blood BLOOD SPECIMEN / Unknown Venipuncture / Unknown 04/18/2020 9:29 AM CDT 04/18/2020 9:42 AM CDT Narrative [facility] ([facility]) - 04/20/2020 7:06 PM CDT Performed at: ??01 - [address] ??[id number] Psych Specialist: Kiran Guerra MD, Phone: ??[phone] Heraclio Dave MD LAB - CHEMISTRY MIRI GO Performing Organization Address [facility] Co de Phone Number [facility] ([facility]) [address] [place] [address] * (ABNORMAL) PT PTT PANEL (04/18/2020 9:29 AM CDT) Pathologist [facility] PT 14.3 12.1 - 14.8 sec 04/18/2020 10:00 AM CDT [facility] INR 1.2(H) 0.9 - 1.1 04/18/2020 10:00 AM CDT [facility] PTT 27.0 23.0 - 38.4 sec 04/18/2020 10:00 AM CDT [facility] Blood BLOOD SPECIMEN / Unknown Venipuncture / Unknown 04/18/2020 9:29 AM CDT 04/18/2020 9:42 AM CDT Narrative [facility] - 04/18/2020 10:00 AM CDT Conventional Warfarin Anticoagulant Therapy: INR Reference Range: ??2.0-3.0 Intensive Warfarin Anticoagulant Therapy: INR Reference Range: ? 2.5-3.5 Heparin Therapeutic Range for PTT: ??71.0 - 109.0 seconds. Clem Brown MD LAB - COAGULATION OR DERABLES Performing Organization Address City/[facility]/ZIP Co de Phone Number [facility] [address] [place] [address] * (ABNORMAL) [id number] ANTIBODY (04/18/2020 9:29 AM CDT) Pathologist [facility] [id number] Antibody 15(H) <12 Units/mL 04/22/2020 5:07 PM CDT [facility] ([facility]) Comment: Results for this test are for research purposes only by the assay's school photograph editor. ??The performance characteristics of this product have not been established. ??Results should not be used as a diagnostic procedure without confirmation of the diagnosis by another medically established diagnostic product or procedure. Blood BLOOD SPECIMEN / Unknown Venipuncture / Unknown 04/18/2020 9:29 AM CDT 04/18/2020 9:42 AM CDT [facility] ([facility]) - 04/22/2020 5:07 PM CDT Performed at: ??01 - [address] ??[id number] Psych Specialist: Kiran Guerra MD, Phone: ??[phone] Heraclio Dave MD LAB - COAGULATION OR DERABLES Performing Organization Address City/[facility] Co de Phone Number [facility] ([facility]) [address] [place] [address] * (ABNORMAL) [id number] ACTIVITY (04/18/2020 9:29 AM CDT) [id number] Activity 41.7(L) >66.8 % 04/20/2020 7:06 PM CDT [facility] ([facility]) Blood BLOOD SPECIMEN / Unknown Venipuncture / Unknown 04/18/2020 9:29 AM CDT 04/18/2020 9:42 AM CDT [facility]) - 04/20/2020 7:06 PM CDT Test(s) [id number] Activity was developed and its performance characteristics determined by [facility]. It has not been cleared or approved by the Food and Drug Administration. Performed at: ??01 - [address] ??[id number] Psych Specialist: Kiran Guerra MD, Phone: ??[phone] Heraclio Dave MD LAB - COAGULATION OR DERABLES Performing Organization Address City/[facility] Co de Phone Number [facility] ([facility]) [address] [place] [address] * LISET DIRECT (04/18/2020 9:29 AM CDT) Direct Liset (LANDY) NEG 04/18/2020 10:25 AM CDT [facility] Blood Bank BLOOD SPECIMEN / Unknown Venipuncture / Unknown 04/18/2020 9:29 AM CDT 04/18/2020 9:43 AM CDT Heraclio Dave MD LAB - BLOOD BANK ORD ERABLES Performing Organization Address [facility] Co de Phone Number [facility] [address] [place] [address] * FIBRINOGEN ACTIVITY (04/18/2020 9:29 AM CDT) Pathologist [facility] Fibrinogen 217 200 - 400 mg/dL 04/18/2020 9:59 AM CDT [facility] Blood BLOOD SPECIMEN / Unknown Venipuncture / Unknown 04/18/2020 9:29 AM CDT 04/18/2020 9:42 AM CDT Annabella Johnson MD LAB - COAGULATION OR DERABLES Performing Organization Address [facility] Co de Phone Number [facility] [address] [place] [address] * (ABNORMAL) GLUCOSE - POINT OF CARE (04/18/2020 9:26 AM CDT) [facility] Glucose WB/POC 174(H) 70 - 106 mg/dL 04/18/2020 2:43 PM CDT [facility] Specimen Type Arterial/C apillary 04/18/2020 2:43 PM CDT [facility] Blood BLOOD SPECIMEN / Unknown 04/18/2020 9:26 AM CDT 04/18/2020 2:43 PM CDT Phuong Frazier MD LAB - POINT OF CARE ORDERABLES Performing Organization Address [facility] Co de Phone Number [facility] [address] [place] [address] * PATHOLOGY PERIPHERAL SMEAR REVIEW (04/18/2020 8:31 AM CDT) Pathologist [facility] Case Report Pathology Interpretation Report ? Case: [id number] ? Authorizing Provider: ??Heraclio Dave MD ? Collected: ? 04/18/2020 08:31 AM ? Ordering Location: ? [facility] ICU MEDICAL ? Received: ?04/18/2020 08:31 AM ? Pathologist: ? Obed, Kathleen Garcia, ? MD ? Specimen: ?Blood ? 04/18/2020 2:22 PM CDT [facility] Final Diagnosis Final diagnosis: - Leukocytosis with left-shift - Normocytic, normochromic anemia - Severe thrombocytopenia A comparison with a previous slide was requested ([id number]). Review of the morphologic and differential count [...] correlation is advised. 04/18/2020 2:22 PM CDT [facility] Blood BLOOD SPECIMEN / Unknown 04/18/2020 8:31 AM CDT 04/18/2020 8:31 AM CDT Heraclio Dave MD LAB - PATHOLOGY/CYTO LOGY ORDERABLES [facility] [address] [place], [place] [id number] * XR CHEST 1VW PORTABLE (04/18/2020 8:15 [...] - 14.8 sec 04/18/2020 8:29 AM CDT [facility] INR 1.1 0.9 - 1.1 04/18/2020 8:29 AM CDT [facility] PTT 27.5 23.0 - 38.4 sec 04/18/2020 8:29 AM CDT [facility] Fibrinogen 278 200 - 400 mg/dL 04/18/2020 8:29 AM CDT [facility] D-Dimer 3.18(H) 0.27 - 0.50 ug/mL FEU 04/18/2020 8:29 AM CDT [facility] Platelet Count 51(L) 153 - 416 x10E9/L 04/18/2020 8:29 AM CDT [facility] Blood BLOOD SPECIMEN / Unknown Venipuncture / Unknown 04/18/2020 7:53 AM CDT 04/18/2020 8:09 AM CDT [facility] - 04/18/2020 8:29 AM CDT Conventional [...] Non applicable Reference: Br. J. Haematol. ??[id number],2008. Clem Brown MD LAB - COAGULATION OR DERABLES [facility] [address] [place] [address] * (ABNORMAL) CBC W AUTO DIFFERENTIAL (04/18/2020 7:50 AM CDT) WBC 17.6(H) 4.4 - 10.7 x10E9/L 04/18/2020 8:20 AM CDT [facility] WBC Corrected 04/18/2020 [facility] RBC 2.96(L) 3.80 - 5.20 x10E12/L 04/18/2020 8:20 AM [facility] Hemoglobin 8.2(L) 12.0 - 15.6 gm/dL 04/18/2020 8:20 AM [facility] Hematocrit 25.1(L) 35.9 - 45.5 % 04/18/2020 8:20 AM [facility] MCV 84.8 80.7 - 98.3 fl 04/18/2020 8:20 AM [facility] MCH 27.7 26.7 - 34.0 pg 04/18/2020 8:20 AM [facility] MCHC 32.7 30.8 - 35.9 gm/dL 04/18/2020 8:20 AM [facility] Platelet Count 53(L) 153 - 416 x10E9/L 04/18/2020 8:20 AM [facility] RDW-CV 15.7(H) 12.1 - 14.9 % 04/18/2020 8:20 AM [facility] Neutrophils % 91.9(H) 44.0 - 73.0 % 04/18/2020 8:20 AM [facility] Lymphocytes % 4.4(L) 20.0 - 43.0 % 04/18/2020 8:20 AM [facility] Monocytes % 2.0(L) 5.0 - 13.0 % 04/18/2020 8:20 AM [facility] Eosinophils % 0.1 0.0 - 6.0 % 04/18/2020 8:20 AM [facility] Basophils % 0.2 0.0 - 2.0 % 04/18/2020 8:20 AM [facility] Immature Granulocytes 1.4(H) 0 - 1 % 04/18/2020 8:20 AM [facility] Neutrophil Absolute 16.17(H) 2.01 - 7.14 x10E9/L 04/18/2020 8:20 AM [facility] Lymphocytes Absolute 0.77(L) 1.07 - 3.94 x10E9/L 04/18/2020 8:20 AM [facility] Monocytes Absolute 0.35 0.26 - 1.07 x10E9/L 04/18/2020 8:20 AM CDT [facility] Eosinophils Absolute 0.01 0 - 0.47 x10E9/L 04/18/2020 8:20 AM CDT [facility] Basophils Absolute 0.04 0 - 0.08 x10E9/L 04/18/2020 8:20 AM CDT [facility] Immature Granulocytes Absolute 0.24(H) 0.00 - 0.06 x10E9/L 04/18/2020 8:20 AM CDT [facility] nRBC Auto 0 /100 WBC 04/18/2020 8:20 AM CDT [facility] Blood BLOOD SPECIMEN / Unknown Venipuncture / Unknown 04/18/2020 7:50 AM CDT 04/18/2020 8:09 AM CDT Clem Brown MD LAB - HEMATOLOGY ORD ERABLES [facility] [address] [place] [address] * (ABNORMAL) BLOOD GASES ARTERIAL (04/18/2020 7:43 AM CDT) pH Arterial 7.31(L) 7.35 - 7.45 pH 04/18/2020 9:03 AM CDT [facility] Comment:L pCO2 Arterial 36 35 - 45 mm hg 04/18/2020 9:03 AM CDT [facility] pO2 Arterial 147(H) 80 - 100 mm hg 04/18/2020 9:03 AM CDT [facility] Comment:H HCO3 Arterial 18(L) 22 - 26 mmol/L 04/18/2020 9:03 AM CDT [facility] Comment:L BE Arterial -7.8(L) -2.0 - 2.0 mmol/L 04/18/2020 9:03 AM CDT [facility] Comment:L O2 Saturation Arterial 99 90 - 100 % 04/18/2020 9:03 AM CDT [facility] Hemoglobin Arterial 9.3(L) 14.0 - 16.0 gm/dL 04/18/2020 9:03 AM CDT [facility] Carboxyhemoglobin Arterial 0.2 0.0 - 2.5 % 04/18/2020 9:03 AM CDT [facility] Methemoglobin Arterial 0.7 0.0 - 2.0 % 04/18/2020 9:03 AM CDT [facility] Oxyhemoglobin Arterial 97 % 04/18/2020 9:03 AM CDT [facility] Mode CMV 04/18/2020 9:03 AM CDT [facility] Aamir's Test N/A 04/18/2020 9:03 AM CDT [facility] FI O2 40 % 04/18/2020 9:03 AM CDT [facility] Tidal Volume 450 mL 04/18/2020 9:03 AM CDT [facility] PEEP (cmH2O) 8.0 04/18/2020 9:03 AM CDT [facility] Respiratory Rate 20.0 04/18/20 20 9:03 AM CDT [facility] Sample Site Art Line 04/18/2020 9:03 AM CDT [facility] Sample Type Arterial 04/18/2020 9:03 AM CDT [facility] Brazing Machine Feeder ID [id number] 04/18/2020 9:03 AM CDT [facility] Blood, arterial ARTERIAL BLOOD SPECIMEN / Unknown 04/18/2020 7:43 AM CDT 04/18/2020 7:43 AM CDT Angela Mallory MD LAB - BLOOD GASES OR DERABLES Performing Organization Address [facility]/State/ZIP Co de Phone Number [facility] [address] [place] [address] * (ABNORMAL) BLOOD GASES ARTERIAL (04/18/2020 6:07 AM CDT) pH Arterial 7.08(LL) 7.35 - 7.45 pH 04/18/2020 6:16 AM CDT [facility] Comment:LL pCO2 Arterial 56(H) 35 - 45 mm hg 04/18/2020 6:16 AM CDT [facility] Comment:H pO2 Arterial 281(H) 80 - 100 mm hg 04/18/2020 6:16 AM CDT [facility] Comment:H HCO3 Arterial 16(L) 22 - 26 mmol/L 04/18/2020 6:16 AM CDT [facility] Comment:L BE Arterial -13.4(L) -2.0 - 2.0 mmol/L 04/18/2020 6:16 AM CDT [facility] Comment:L O2 Saturation Arterial 99 90 - 100 % 04/18/2020 6:16 AM CDT [facility] Hemoglobin Arterial 10.6(L) 14.0 - 16.0 gm/dL 04/18/2020 6:16 AM CDT [facility] Carboxyhemoglobin Arterial 0.1 0.0 - 2.5 % 04/18/2020 6:16 AM CDT [facility] Methemoglobin Arterial 0.8 0.0 - 2.0 % 04/18/2020 6:16 AM CDT [facility] Oxyhemoglobin Arterial 98 % 04/18/2020 6:16 AM CDT [facility] O2 Content Arterial 15.3 % 04/18 6:16 AM CDT [facility] Comment:L Aamir's Test N/A 04/18/2020 6:16 AM CDT [facility] FI O2 100 % 04/18/2020 6:16 AM CDT [facility] Tidal Volume 350 mL 04/18/2020 6:16 AM CDT [facility] PEEP (cmH2O) 5.0 04/18/2020 6:16 AM CDT [facility] Respiratory Rate 16.0 04/18/20 20 6:16 AM CDT [facility] Sample Site Art Line 04/18/2020 6:16 AM CDT [facility] Sample Type Arterial 04/18/2020 6:16 AM CDT [facility] Brazing Machine Feeder ID [id number] 04/18/2020 6:16 AM CDT [facility] Notified Renea Mallory 04/18/2020 6:16 AM CDT [facility] Notification Time 04/18/2020 06:16 04/18/2020 6:16 AM CDT [facility] Notified By Kusum LARA 04/18/2020 6:16 AM CDT [facility] Blood, arterial ARTERIAL BLOOD SPECIMEN / Unknown 04/18/2020 6:07 AM CDT 04/18/2020 6:07 AM CDT Maikel Ring MD LAB - BLOOD GASES ORDERABLES [facility] [address] [place] [address] * (ABNORMAL) TRIGLYCERIDES BLOOD (04/18/2020 5:37 AM CDT) Pathologist [facility] Triglycerides 160(H) <150 mg/dL 04/18/2020 8:16 AM CDT [facility] Blood BLOOD SPECIMEN / Unknown Venipuncture / Unknown 04/18/2020 5:37 AM CDT 04/18/2020 5:45 AM CDT Snehal Crowe MD LAB - CHEM ISTRY ORDERABLES Performing Organization Address [facility] Co de Phone Number [facility] [address] [place] [address] * (ABNORMAL) SLIDE SCAN HEMATOLOGY (04/18/2020 5:37 AM CDT) Pathologist [facility] Platelet Estimation Decrease d(A) Normal, Adequate platelets 04/18/2020 7:07 AM CDT [facility] Anisocytosis 1+(A) None 04/18/2020 7:07 AM CDT [facility] Poikilocytosis 1+(A) None 04/18/2020 7:07 AM CDT [facility] Polychromasia Occasion al(A) None 04/18/2020 7:07 AM CDT [facility] Alicia Cells 1+(A) None 04/18/2020 7:07 AM CDT [facility] Blood BLOOD SPECIMEN / Unknown Venipuncture / Unknown 04/18/2020 5:37 AM CDT 04/18/2020 5:45 AM CDT Maikel Ring MD LAB - HEMATOLOGY ORDERABLES Performing Organization Address [facility] Co de Phone Number [facility] [address] [place] [address] * (ABNORMAL) MAGNESIUM BLOOD (04/18/2020 5:37 AM CDT) Pathologist [facility] Magnesium 1.3(L) 1.6 - 2.6 mg/dL 04/18/2020 6:26 AM CDT [facility] Blood BLOOD SPECIMEN / Unknown Venipuncture / Unknown 04/18/2020 5:37 AM CDT 04/18/2020 5:45 AM CDT Maikel Ring MD LAB - CHEMISTRY O RDERABLES [facility] [address] [place] [address] * (ABNORMAL) COAGULATION PANEL W D-DIMER (04/18/2020 5:37 AM CDT) [facility] PT 14.5 12.1 - 14.8 sec 04/18/2020 6:58 AM CDT [facility] INR 1.2(H) 0.9 - 1.1 04/18/2020 6:58 AM CDT [facility] PTT 33.8 23.0 - 38.4 sec 04/18/2020 6:58 AM CDT [facility] Fibrinogen 239 200 - 400 mg/dL 04/18/2020 6:58 AM CDT [facility] D-Dimer 3.75(H) 0.27 - 0.50 ug/mL FEU 04/18/2020 6:58 AM T [facility] Platelet Count 38(LL) 153 - 416 x10E9/L 04/18/2020 6:58 AM CDT [facility] Blood BLOOD SPECIMEN / Unknown Venipuncture / Unknown 04/18/2020 5:37 AM CDT 04/18/2020 5:45 AM CDT Narrative [facility] - 04/18/2020 6:58 AM CDT Conventional [...] Maikel Ring MD LAB - COAGULATION ORDERABLES [facility] [address] [place] [address] * (ABNORMAL) COMPREHENSIVE METABOLIC PANEL (04/18/2020 5:37 AM CDT) Glucose 306(H) 70 - 105 mg/dL 04/18/2020 6:30 AM CDT [facility] Sodium 138 136 - 145 mmol/L 04/18/2020 6:30 AM CDT [facility] Potassium 4.8 3.5 - 5.1 mmol/L 04/18/2020 6:30 AM CDT [facility] Chloride 110(H) 98 - 107 mmol/L 04/18/2020 6:30 AM CDT [facility] CO2 13(L) 23 - 31 mmol/L 04/18/2020 6:30 AM CDT [facility] Calcium 6.8(LL) 8.4 - 10.4 mg/dL 04/18/2020 6:30 AM T [facility] Anion Gap 15 8 - 16 mmol/L 04/18/2020 6:30 AM T [facility] BUN 20(H) 7 - 18.7 mg/dL 04/18/2020 6:30 AM T [facility] Creatinine 1.02 0.57 - 1.11 mg/dL 04/18/2020 6:30 AM [facility] Alkaline Phosphatase 192(H) 40 - 150 U/L 04/18/2020 6:30 AM T [facility] ALT 22 0 - 61 U/L 04/18/2020 6:30 AM [facility] AST 34 5 - 34 U/L 04/18/2020 6:30 AM [facility] Protein Total 4.7(L) 6.4 - 8.3 gm/dL 04/18/2020 6:30 AM [facility] Albumin 2.6(L) 3.5 - 5.2 gm/dL 04/18/2020 6:30 AM T [facility] Bilirubin Total 0.5 0.2 - 1.0 mg/dL 04/18/2020 6:30 AM T [facility] eGFR by MDRD >60 >60 mL/min/1.7 3m2 04/18/2020 6:30 AM T [facility] eGFR by MDRD >60 >60 mL/min/1.7 3m2 04/18/2020 6:30 AM T [facility] Blood BLOOD SPECIMEN / Unknown Venipuncture / Unknown 04/18/2020 5:37 AM CDT 04/18/2020 5:45 AM CDT Maikel Ring MD LAB - CHEMISTRY O RDERABLES [facility] [address] [place] [address] * (ABNORMAL) LACTIC ACID BLOOD (04/18/2020 5:37 AM CDT) Lactic Acid 6.9(HH) 0.5 - 2.2 mmol/L 04/18/2020 6:23 AM CDT [facility] Blood BLOOD SPECIMEN / Unknown Venipuncture / Unknown 04/18/2020 5:37 AM CDT 04/18/2020 5:44 AM CDT Maikel Ring MD LAB - CHEMISTRY O RDERASTEPHANE Performing Organization Address City/State/[facility] Co de Phone Number [facility] [address] [place] [address] * (ABNORMAL) CBC W AUTO DIFFERENTIAL (04/18/2020 5:37 AM CDT) WBC 23.1(H) 4.4 - 10.7 x10E9/L 04/18/2020 6:33 AM CDT [facility] WBC Corrected 04/18/2020 6:33 AM CDT [facility] RBC 3.23(L) 3.80 - 5.20 x10E12/L 04/18/2020 6:33 AM CDT [facility] Hemoglobin 8.9(L) 12.0 - 15.6 gm/dL 04/18/2020 6:33 AM CDT [facility] Hematocrit 28.6(L) 35.9 - 45.5 % 04/18/2020 6:33 AM CDT [facility] MCV 88.5 80.7 - 98.3 fl 04/18/2020 6:33 AM CDT [facility] MCH 27.6 26.7 - 34.0 pg 04/18/2020 6:33 AM CDT [facility] MCHC 31.1 30.8 - 35.9 gm/dL 04/18/2020 6:33 AM CDT [facility] Platelet Count 39(LL) 153 - 416 x10E9/L 04/18/2020 6:33 AM CDT [facility] RDW-CV 16.3(H) 12.1 - 14.9 % 04/18/2020 6:33 AM CDT [facility] Neutrophils % 87.8(H) 44.0 - 73.0 % 04/18/2020 6:33 AM CDT [facility] Lymphocytes % 5.2(L) 20.0 - 43.0 % 04/18/2020 6:33 AM CDT [facility] Monocytes % 2.0(L) 5.0 - 13.0 % 04/18/2020 6:33 AM CDT [facility] Eosinophils % 0.2 0.0 - 6.0 % 04/18/2020 6:33 AM CDT [facility] Basophils % 0.4 0.0 - 2.0 % 04/18/2020 6:33 AM CDT [facility] Immature Granulocytes 4.4(H) 0 - 1 % 04/18/2020 6:33 AM CDT [facility] Neutrophil Absolute 20.24(H) 2.01 - 7.14 x10E9/L 04/18/2020 6:33 AM CDT [facility] Lymphocytes Absolute 1.21 1.07 - 3.94 x10E9/L 04/18/2020 6:33 AM CDT [facility] Monocytes Absolute 0.46 0.26 - 1.07 x10E9/L 04/18/2020 6:33 AM T [facility] Eosinophils Absolute 0.04 0 - 0.47 x10E9/L 04/18/2020 6:33 AM CDT [facility] Basophils Absolute 0.09(H) 0 - 0.08 x10E9/L 04/18/2020 6:33 AM CDT [facility] Immature Granulocytes Absolute 1.01(H) 0.00 - 0.06 x10E9/L 04/18/2020 6:33 AM CDT [facility] nRBC Auto 0 /100 WBC 04/18/2020 6:33 AM T [facility] Blood BLOOD SPECIMEN / Unknown Venipuncture / Unknown 04/18/2020 5:37 AM CDT 04/18/2020 5:45 AM CDT Maikel Ring MD LAB - HEMATOLOGY ORDERABLES [facility] [address] [place] [address] * PTT (04/18/2020 5:37 AM CDT) PTT 33.0 23.0 - 38.4 sec 04/18/2020 6:53 AM [facility] Blood BLOOD SPECIMEN / Unknown Venipuncture / Unknown 04/18/2020 5:37 AM CDT 04/18/2020 5:45 AM CDT Narrative [facility] - 04/18/2020 6:53 AM CDT Heparin Therapeutic Range for PTT: ??71.0 - 109.0 seconds. Annabella Johnson MD LAB - COAGULATION OR DERABLES Performing Organization Address [facility] de Phone Number [facility] [address] [place], [place] [phone] * (ABNORMAL) PT-INR (04/18/2020 5:37 AM CDT) PT 14.4 12.1 - 14.8 sec 04/18/2020 6:52 AM CDT [facility] INR 1.2(H) 0.9 - 1.1 04/18/2020 6:52 AM CDT [facility] Blood BLOOD SPECIMEN / Unknown Venipuncture / Unknown 04/18/2020 5:37 AM CDT 04/18/2020 5:45 AM CDT Narrative [facility] - 04/18/2020 6:52 AM CDT Conventional Warfarin Anticoagulant Therapy: INR Reference Range: ??2.0-3.0 Intensive Warfarin Anticoagulant Therapy: INR Reference Range: ? 2.5-3.5 Annabella Johnson MD LAB - COAGULATION OR DERABLES Performing Organization Address [facility] de Phone Number [facility] [address] [place] [address] * FIBRINOGEN ACTIVITY (04/18/2020 5:37 AM CDT) Fibrinogen 250 200 - 400 mg/dL 04/18/2020 6:55 AM CDT [facility] Blood BLOOD SPECIMEN / Unknown Venipuncture / Unknown 04/18/2020 5:37 AM CDT 04/18/2020 5:45 AM CDT Annabella Johnson MD LAB - COAGULATION OR DERABLES Performing Organization Address [facility] Co de Phone Number [facility] [address] [place] [phone] * PATHOLOGY TISSUE EXAM (STL) (04/18/2020 4:24 AM CDT) Case Report Surgical Pathology Report ? Case: [id number] ? Authorizing Provider: ??Marisa James MD ? Collected: ? 04/18/2020 04:24 AM ? Ordering Location: ? [facility] ? Received: ?04/18/2020 07:17 AM ? Pathologist: ? Phuong Hernadez MD ? Specimens: ?? A) - Placenta 3rd Trimester ? B) - Placenta 3rd Trimester ? 04/23/2020 7:57 AM CDT [facility] Final Diagnosis Twin placenta, delivery (A) [...] with recent perivascular hemorrhage 04/23/2020 7:57 AM [facility] Clinical History The patient is a 29-year-old woman at 38 weeks, 1 day gestation with twins, with clinically suspected placental abruption. 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 Operative procedure/findings: section, Apgars 6/7/8 and 5/8. 04/23/2020 7:57 AM [facility] Gross Description The requisition [...] of the maternal surface, or gross infarcts. Local Telephone Operator sections are submitted as follows: A1 - [...] of the maternal surface, or gross infarcts. Local Telephone Operator sections are submitted as follows: B1 - attached umbilical cord and membranes B2-B3 - placenta B4 - detached segment of umbilical cord DS/ns 04/23/2020 7:57 AM [facility] Microscopic Description Microscopic examination [...] such as CMV, syphilis, toxoplasmosis, and others. Infant and maternal serologies may be helpful if clinically indicated. 04/23/2020 7:57 AM [facility] Disclaimer All histochemical and/or immunohistochemical results are interpreted with controls that demonstrate appropriate staining reactions before reporting results. Note on use of immunocytochemistry reagents: This test was developed and its performance characteristic determined by [facility], Department of Laboratory Medicine. It [...] be interpreted with caution. 04/23/2020 7:57 AM CDT [facility] Embedded Images 04/23/2020 7:57 AM T [facility] Pathology/Cytology ENTIRE PLACENTA / Unknown 04/18/2020 4:24 AM CDT 04/18/2020 7:17 AM CDT Comment:Pre-op diagnosis: Twin delivery by [O30.009] Miscellaneous samples (specimen) ENTIRE PLACENTA / Unknown 04/18/2020 4:25 AM CDT 04/18/2020 7:17 AM CDT Comment:Pre-op diagnosis: Twin delivery by [O30.009] Marisa James MD LAB - PATHOLOGY/CYTO LOGY ORDERABLES [facility] [address] [place] [address] * HEMOGLOBIN A1C (04/18/2020 4:13 AM CDT) Hemoglobin A1c 5.2 4.2 - 5.6 % 04/18/2020 6:37 AM CDT [facility] Estimated Average Glucose 103 mg/dL 04/18/2020 6:37 AM CDT [facility] Blood BLOOD SPECIMEN / Unknown Venipuncture / Unknown 04/18/2020 4:13 AM CDT 04/18/2020 4:16 AM CDT Narrative [facility] - 04/18/2020 6:37 AM CDT The following cutoff levels are recommended by [place] [employer]. ?? A1c ??> 6.5% : [...] Maikel Ring MD LAB - CHEMISTRY O RDERASTEPHANE [facility] [address] [place], [place] [phone] * (ABNORMAL) COMPREHENSIVE METABOLIC PANEL (04/18/2020 4:13 AM CDT) Pathologist [facility] Glucose 202(H) 70 - 105 mg/dL 04/18/2020 4:45 AM CDT [facility] Sodium 139 136 - 145 mmol/L 04/18/2020 4:45 AM CDT [facility] Potassium 4.0 3.5 - 5.1 mmol/L 04/18/2020 4:45 AM CDT [facility] Chloride 113(H) 98 - 107 mmol/L 04/18/2020 4:45 AM CDT [facility] CO2 15(L) 23 - 31 mmol/L 04/18/2020 4:45 AM CDT [facility] Calcium 7.1(L) 8.4 - 10.4 mg/dL 04/18/2020 4:45 AM CDT [facility] Anion Gap 11 8 - 16 mmol/L 04/18/2020 4:45 AM CDT [facility] BUN 19(H) 7 - 18.7 mg/dL 04/18/2020 4:45 AM CDT [facility] Creatinine 0.99 0.57 - 1.11 mg/dL 04/18/2020 4:45 AM CDT [facility] Alkaline Phosphatase 208(H) 40 - 150 U/L 04/18/2020 4:45 AM CDT [facility] ALT 23 0 - 61 U/L 04/18/2020 4:45 AM CDT [facility] AST 29 5 - 34 U/L 04/18/2020 4:45 AM CDT [facility] Protein Total 4.4(L) 6.4 - 8.3 gm/dL 04/18/2020 4:45 AM CDT [facility] Albumin 2.3(L) 3.5 - 5.2 gm/dL 04/18/2020 4:45 AM CDT [facility] Bilirubin Total 0.4 0.2 - 1.0 mg/dL 04/18/2020 4:45 AM CDT [facility] eGFR by MDRD >60 >60 mL/min/1.7 3m2 04/18/2020 4:45 AM CDT [facility] eGFR by MDRD >60 >60 mL/min/1.7 3m2 04/18/2020 4:45 AM CDT [facility] Blood BLOOD SPECIMEN / Unknown Venipuncture / Unknown 04/18/2020 4:13 AM CDT 04/18/2020 4:16 AM CDT Mayuri Norton MD LAB - CHEMISTRY MIRI GO Performing Organization Address City/[facility] Co de Phone Number [facility] [address] [place], [place] [phone] * PTT (04/18/2020 4:13 AM CDT) PTT 38.1 23.0 - 38.4 sec 04/18/2020 4:34 AM CDT [facility] Blood BLOOD SPECIMEN / Unknown Venipuncture / Unknown 04/18/2020 4:13 AM CDT 04/18/2020 4:16 AM CDT Narrative [facility] - 04/18/2020 4:34 AM CDT Heparin Therapeutic Range for PTT: ??71.0 - 109.0 seconds. Annabella Johnson MD LAB - COAGULATION OR DERABLES Performing Organization Address City/[facility] Co de Phone Number [facility] [address] [place], [place] [phone] * (ABNORMAL) PT-INR (04/18/2020 4:13 AM CDT) PT 15.6(H) 12.1 - 14.8 sec 04/18/2020 4:33 AM CDT [facility] INR 1.3(H) 0.9 - 1.1 04/18/2020 4:33 AM CDT [facility] Blood BLOOD SPECIMEN / Unknown Venipuncture / Unknown 04/18/2020 4:13 AM CDT 04/18/2020 4:16 AM CDT Narrative [facility] - 04/18/2020 4:33 AM CDT Conventional Warfarin Anticoagulant Therapy: INR Reference Range: ??2.0-3.0 Intensive Warfarin Anticoagulant Therapy: INR Reference Range: ? 2.5-3.5 Annabella Johnson MD LAB - COAGULATION OR DERABLES Performing Organization Address City/[facility] Co de Phone Number [facility] [address] [place], [place] [phone] * FIBRINOGEN ACTIVITY (04/18/2020 4:13 AM CDT) Pathologist [facility] Fibrinogen 238 200 - 400 mg/dL 04/18/2020 4:34 AM CDT [facility] Blood BLOOD SPECIMEN / Unknown Venipuncture / Unknown 04/18/2020 4:13 AM CDT 04/18/2020 4:16 AM CDT Annabella Johnson MD LAB - COAGULATION OR DERABLES Performing Organization Address [facility] de Phone Number [facility] [address] [place] [address] * (ABNORMAL) CBC W AUTO DIFFERENTIAL (04/18/2020 4:13 AM CDT) Pathologist [facility] WBC 19.5(H) 4.4 - 10.7 x10E9/L 04/18/2020 4:30 AM CDT [facility] WBC Corrected 04/18/2020 4:30 AM CDT [facility] RBC 2.04(L) 3.80 - 5.20 x10E12/L 04/18/2020 4:30 AM CDT [facility] Hemoglobin 5.4(LL) 12.0 - 15.6 gm/dL 04/18/2020 4:30 AM CDT [facility] Hematocrit 17.6(LL) 35.9 - 45.5 % 04/18/2020 4:30 AM CDT [facility] MCV 86.3 80.7 - 98.3 fl 04/18/2020 4:30 AM CDT [facility] MCH 26.5(L) 26.7 - 34.0 pg 04/18/2020 4:30 AM CDT [facility] MCHC 30.7(L) 30.8 - 35.9 gm/dL 04/18/2020 4:30 AM [facility] Platelet Count 42(LL) 153 - 416 x10E9/L 04/18/2020 4:30 AM [facility] RDW-CV 19.7(H) 12.1 - 14.9 % 04/18/2020 4:30 AM [facility] Neutrophils % 88.8(H) 44.0 - 73.0 % 04/18/2020 4:30 AM [facility] Lymphocytes % 6.4(L) 20.0 - 43.0 % 04/18/2020 4:30 AM [facility] Monocytes % 1.8(L) 5.0 - 13.0 % 04/18/2020 4:30 AM [facility] Eosinophils % 0.1 0.0 - 6.0 % 04/18/2020 4:30 AM [facility] Basophils % 0.3 0.0 - 2.0 % 04/18/2020 4:30 AM [facility] Immature Granulocytes 2.6(H) 0 - 1 % 04/18/2020 4:30 AM [facility] Neutrophil Absolute 17.28(H) 2.01 - 7.14 x10E9/L 04/18/2020 4:30 AM [facility] Lymphocytes Absolute 1.25 1.07 - 3.94 x10E9/L 04/18/2020 4:30 AM [facility] Monocytes Absolute 0.35 0.26 - 1.07 x10E9/L 04/18/2020 4:30 AM [facility] Eosinophils Absolute 0.01 0 - 0.47 x10E9/L 04/18/2020 4:30 AM [facility] Basophils Absolute 0.05 0 - 0.08 x10E9/L 04/18/2020 4:30 AM [facility] Immature Granulocytes Absolute 0.51(H) 0.00 - 0.06 x10E9/L 04/18/2020 4:30 AM [facility] nRBC Auto 0 /100 WBC 04/18/2020 4:30 AM [facility] Blood BLOOD SPECIMEN / Unknown Venipuncture / Unknown 04/18/2020 4:13 AM CDT 04/18/2020 4:16 AM CDT Annabella Johnson MD LAB - HEMATOLOGY ORD ERABLES Performing Organization Address City/[facility]/ZIP Co de Phone Number [facility] [address] [place] [phone] * (ABNORMAL) BLOOD GASES CORD JEREMY (04/18/2020 3:12 AM CDT) pH Cord Venous 6.98(LL) 7.28 - 7.40 pH 04/18/2020 3:26 AM CDT [facility] Comment:LL pCO2 Cord Venous 75(HH) 35 - 45 mm hg 04/18/2020 3:26 AM CDT [facility] Comment:HH pO2 Cord Venous 18(L) 22 - 33 mm hg 04/18/2020 3:26 AM CDT [facility] Comment:L HCO3 Cord Venous 17(L) 22 - 24 mmol/L 04/18/2020 3:26 AM CDT [facility] Comment:L BE Cord Venous -15.6 mmol/L 04/18/2020 3:26 AM CDT [facility] O2 Saturation Cord Venous 26 % 04/18/2020 3:26 AM CDT [facility] Aamir's Test N/A 04/18/2020 3:26 AM CDT [facility] Sample Site Other 04/18/2020 3:26 AM CDT [facility] Sample Type Cord Blood Venous 04/18/2020 3:26 AM CDT [facility] Brazing Machine Feeder ID [id number] 04/18/2020 3:26 AM CDT [facility] Notified Renea elder transmission specialist 04/18/2020 3:26 AM CDT [facility] Notification Time 04/18/2020 03:26 04/18/2020 3:26 AM CDT [facility] Notified By octavia well drill operator cable tool 04/18/2020 3:26 AM CDT [facility] Blood CORD BLOOD SPECIMEN / Unknown 04/18/2020 3:12 AM CDT 04/18/2020 3:12 AM CDT Afsaneh Sandoval MD LAB - BLOOD GASES OR DERABLES Performing Organization Address City/[facility]/ZIP Co de Phone Number [facility] [address] [phone] * (ABNORMAL) BLOOD GASES CORD ARTERIAL (04/18/2020 3:12 AM CDT) pH Cord Arterial 6.92(LL) 7.20 - 7.34 pH 04/18/2020 3:27 AM CDT [facility] Comment:LL pCO2 Cord Arterial 89(HH) 45 - 55 mm hg 04/18/2020 3:27 AM CDT [facility] Comment:HH pO2 Cord Arterial 04/18/2020 3:27 AM CDT [facility] Comment:< HCO3 Cord Arterial 18.0(L) 22.0 - 24.0 mmol/L 04/18/2020 3:27 AM CDT [facility] Comment:L BE Cord Arterial -16.3 mmol/L 04/18/20 20 3:27 AM CDT [facility] O2 Saturation Cord Arterial 04/18/2020 3:27 AM CDT [facility] Comment:< Aamir's Test N/A 04/18/2020 3:27 AM CDT [facility] Sample Site Other 04/18/2020 3:27 AM CDT [facility] Sample Type Cord blood Arterial 04/18/2020 3:27 AM CDT [facility] Brazing Machine Feeder ID [id number] 04/18/2020 3:27 AM CDT [facility] Notified Renea leder transmission specialist 04/18/2020 3:27 AM CDT [facility] Notification Time 04/18/2020 03:27 04/18/2020 3:27 AM CDT [facility] Notified By octavia morrissey 04/18/2020 3:27 AM CDT [facility] Blood, arterial CORD BLOOD SPECIMEN / Unknown 04/18/2020 3:12 AM CDT 04/18/2020 3:12 AM CDT Afsaneh Sandoval MD LAB - BLOOD GASES OR DERABLES [facility] [address] [phone] * (ABNORMAL) BLOOD GASES CORD ARTERIAL (04/18/2020 3:07 AM CDT) pH Cord Arterial 7.08(L) 7.20 - 7.34 pH 04/18/2020 3:24 AM CDT [facility] Comment:LL pCO2 Cord Arterial 64(H) 45 - 55 mm hg 04/18/2020 3:24 AM CDT [facility] Comment:H pO2 Cord Arterial 14 12 - 25 mm hg 04/18/2020 3:24 AM CDT [facility] Comment:L HCO3 Cord Arterial 18.4(L) 22.0 - 24.0 mmol/L 04/18/2020 3:24 AM CDT [facility] Comment:L BE Cord Arterial -12.5 mmol/L 04/18/20 20 3:24 AM CDT [facility] O2 Saturation Cord Arterial 22 % 04/18/2020 3:24 AM CDT [facility] Aamir's Test N/A 04/18/2020 3:24 AM CDT [facility] Sample Site Other 04/18/2020 3:24 AM CDT [facility] Sample Type Cord Blood Venous 04/18/2020 3:24 AM CDT [facility] Brazing Machine Feeder ID [id number] 04/18/2020 3:24 AM CDT [facility] Notified Who jerrod transmission specialist 04/18/2020 3:24 AM CDT [facility] Notification Time 04/18/2020 03:24 04/18/2020 3:24 AM CDT [facility] Notified By octavia morrissey 04/18/2020 3:24 AM CDT [facility] Blood, arterial CORD BLOOD SPECIMEN / Unknown 04/18/2020 3:07 AM CDT 04/18/2020 3:07 AM CDT Narrative [facility] - 04/18/2020 3:24 AM CDT baby a Afsaneh Sandoval MD LAB - BLOOD GASES OR DERABLES [facility] [address] [phone] * (ABNORMAL) BLOOD GASES CORD JEREMY (04/18/2020 3:07 AM CDT) pH Cord Venous 7.09(L) 7.28 - 7.40 pH 04/18/2020 3:23 AM CDT [facility] Comment:L pCO2 Cord Venous 58(H) 35 - 45 mm hg 04/18/2020 3:23 AM CDT [facility] Comment:H pO2 Cord Venous 28 22 - 33 mm hg 04/18/2020 3:23 AM CDT [facility] HCO3 Cord Venous 17(L) 22 - 24 mmol/L 04/18/2020 3:23 AM CDT [facility] Comment:L BE Cord Venous -13.1 mmol/L 04/18/2020 3:23 AM CDT [facility] O2 Saturation Cord Venous 54 % 04/18/2020 3:23 AM CDT [facility] Aamir's Test N/A 04/18/2020 3:23 AM CDT [facility] Sample Site Other 04/18/2020 3:23 AM CDT [facility] Sample Type Cord Blood Venous 04/18/2020 3:23 AM CDT [facility] Brazing Machine Feeder ID [id number] 04/18/2020 3:23 AM CDT [facility] Notification Time 04/18/2020 03:23 04/18/2020 3:23 AM CDT [facility] Blood CORD BLOOD SPECIMEN / Unknown 04/18/2020 3:07 AM CDT 04/18/2020 3:07 AM CDT Narrative [facility] - 04/18/2020 3:23 AM CDT baby a Afsaneh Sandoval MD LAB - BLOOD GASES OR DERABLES Performing Organization Address City/State/[facility] Co de Phone Number [facility] [address] [phone] * PTT (04/18/2020 12:53 AM CDT) PTT 33.4 23.0 - 38.4 sec 04/18/2020 1:29 AM CDT [facility] Blood BLOOD SPECIMEN / Unknown Venipuncture / Unknown 04/18/2020 12:53 AM CDT 04/18/2020 1:14 AM CDT Narrative [facility] - 04/18/2020 1:29 AM CDT Heparin Therapeutic Range for PTT: ??71.0 - 109.0 seconds. Annabella Johnson MD LAB - COAGULATION OR DERABLES Performing Organization Address [facility] de Phone Number [facility] [address] [place], [place] [phone] * PT-INR (04/18/2020 12:53 AM CDT) Pathologist [facility] PT 13.1 12.1 - 14.8 sec 04/18/2020 1:28 AM CDT [facility] INR 1.0 0.9 - 1.1 04/18/2020 1:28 AM CDT [facility] Blood BLOOD SPECIMEN / Unknown Venipuncture / Unknown 04/18/2020 12:53 AM CDT 04/18/2020 1:14 AM CDT Narrative [facility] - 04/18/2020 1:28 AM CDT Conventional Warfarin Anticoagulant Therapy: INR Reference Range: ??2.0-3.0 Intensive Warfarin Anticoagulant Therapy: INR Reference Range: ? 2.5-3.5 Annabella Johnson MD LAB - COAGULATION OR DERABLES Performing Organization Address [facility] de Phone Number [facility] [address] [place] [address] * FIBRINOGEN ACTIVITY (04/18/2020 12:53 AM CDT) Pathologist [facility] Fibrinogen 345 200 - 400 mg/dL 04/18/2020 1:29 AM CDT [facility] Blood BLOOD SPECIMEN / Unknown Venipuncture / Unknown 04/18/2020 12:53 AM CDT 04/18/2020 1:14 AM CDT Annabella Johnson MD LAB - COAGULATION OR DERABLES Performing Organization Address [facility] de Phone Number [facility] [address] [place], [place] [phone] * (ABNORMAL) CBC W AUTO DIFFERENTIAL (04/18/2020 12:53 AM CDT) Pathologist [facility] WBC 16.6(H) 4.4 - 10.7 x10E9/L 04/18/2020 1:32 AM CDT [facility] WBC Corrected 04/18/2020 1:[facility] RBC 3.71(L) 3.80 - 5.20 x10E12/L 04/18/2020 1:32 AM [facility] Hemoglobin 10.0(L) 12.0 - 15.6 gm/dL 04/18/2020 1:32 AM [facility] Hematocrit 30.7(L) 35.9 - 45.5 % 04/18/2020 1:32 AM [facility] MCV 82.7 80.7 - 98.3 fl 04/18/2020 1:32 AM [facility] MCH 27.0 26.7 - 34.0 pg 04/18/2020 1:32 AM [facility] MCHC 32.6 30.8 - 35.9 gm/dL 04/18/2020 1:32 AM [facility] Platelet Count 29(LL) 153 - 416 x10E9/L 04/18/2020 1:32 AM [facility] RDW-CV 19.5(H) 12.1 - 14.9 % 04/18/2020 1:32 AM [facility] Neutrophils % 90.5(H) 44.0 - 73.0 % 04/18/2020 1:32 AM [facility] Lymphocytes % 4.0(L) 20.0 - 43.0 % 04/18/2020 1:32 AM [facility] Monocytes % 3.7(L) 5.0 - 13.0 % 04/18/2020 1:32 AM [facility] Eosinophils % 0.2 0.0 - 6.0 % 04/18/2020 1:32 AM [facility] Basophils % 0.3 0.0 - 2.0 % 04/18/2020 1:32 AM [facility] Immature Granulocytes 1.3(H) 0 - 1 % 04/18/2020 1:32 AM [facility] Neutrophil Absolute 14.97(H) 2.01 - 7.14 x10E9/L 04/18/2020 1:32 AM [facility] Lymphocytes Absolute 0.67(L) 1.07 - 3.94 x10E9/L 04/18/2020 1:32 AM [facility] Monocytes Absolute 0.61 0.26 - 1.07 x10E9/L 04/18/2020 1:32 AM CDT [facility] Eosinophils Absolute 0.04 0 - 0.47 x10E9/L 04/18/2020 1:32 AM CDT [facility] Basophils Absolute 0.05 0 - 0.08 x10E9/L 04/18/2020 1:32 AM CDT [facility] Immature Granulocytes Absolute 0.22(H) 0.00 - 0.06 x10E9/L 04/18/2020 1:32 AM CDT [facility] nRBC Auto 0 /100 WBC 04/18/2020 1:32 AM CDT [facility] Blood BLOOD SPECIMEN / Unknown Venipuncture / Unknown 04/18/2020 12:53 AM CDT 04/18/2020 1:14 AM CDT Annabella Johnson MD LAB - HEMATOLOGY ORD ERABLES Performing Organization Address [facility] Co de Phone Number [facility] [address] [place] [phone] * (ABNORMAL) URINE MICROSCOPIC ONLY (04/17/2020 8:57 PM CDT) RBC UA >100(A) None Seen, 0-2, 3-5 # /hpf 04/17/2020 9:47 PM CDT [facility] WBC UA 6-10(A) None Seen, 0-5 # /hpf 04/17/2020 9:47 PM CDT [facility] Bacteria UA None Seen None Seen 04/17/2020 9:47 PM CDT [facility] Squamous Epithelial Cells 6-10(A) None Seen, 0-2, 3-5 /hpf 04/17/2020 9:47 PM CDT [facility] Urine URINE SPECIMEN OBTAINED BY CLEAN CATCH PROCEDURE / Unknown Collection / Unknown 04/17/2020 8:57 PM CDT 04/17/2020 9:08 PM CDT Narrative [facility] - 04/17/2020 9:47 PM CDT Annabella Johnson MD LAB - URINALYSIS ORD ERABLES Performing Organization Address City/[facility]/ZIP Co de Phone Number [facility] [address] [place], [place] [phone] * PTT (04/17/2020 8:57 PM CDT) Pathologist [facility] PTT 33.2 23.0 - 38.4 sec 04/17/2020 9:28 PM CDT [facility] Blood BLOOD SPECIMEN / Unknown Venipuncture / Unknown 04/17/2020 8:57 PM CDT 04/17/2020 9:08 PM CDT Narrative [facility] - 04/17/2020 9:28 PM CDT Heparin Therapeutic Range for PTT: ??71.0 - 109.0 seconds. Mayuri Norton MD LAB - COAGULATION OR DERABLES [facility] [address] [place] [address] * PT-INR (04/17/2020 8:57 PM CDT) [facility] PT 13.2 12.1 - 14.8 sec 04/17/2020 9:27 PM CDT [facility] INR 1.1 0.9 - 1.1 04/17/2020 9:27 PM CDT [facility] Blood BLOOD SPECIMEN / Unknown Venipuncture / Unknown 04/17/2020 8:57 PM CDT 04/17/2020 9:08 PM CDT [facility] LABORATORY - 04/17/2020 9:27 PM CDT Conventional Warfarin Anticoagulant Therapy: INR Reference Range: ??2.0-3.0 Intensive Warfarin Anticoagulant Therapy: INR Reference Range: ? 2.5-3.5 Mayuri Norton MD LAB - COAGULATION OR DERABLES [facility] [address] [place] [address] * (ABNORMAL) COMPREHENSIVE METABOLIC PANEL (04/17/2020 8:57 PM CDT) Pathologist [facility] Glucose 67(L) 70 - 105 mg/dL 04/17/2020 9:39 PM CDT [facility] Sodium 138 136 - 145 mmol/L 04/17/2020 9:39 PM CDT [facility] Potassium 4.3 3.5 - 5.1 mmol/L 04/17/2020 9:39 PM CDT [facility] Chloride 112(H) 98 - 107 mmol/L 04/17/2020 9:39 PM CDT [facility] CO2 16(L) 23 - 31 mmol/L 04/17/2020 9:39 PM CDT [facility] Calcium 7.8(L) 8.4 - 10.4 mg/dL 04/17/2020 9:39 PM CDT [facility] Anion Gap 10 8 - 16 mmol/L 04/17/2020 9:39 PM CDT [facility] BUN 21(H) 7 - 18.7 mg/dL 04/17/2020 9:39 PM CDT [facility] Creatinine 1.07 0.57 - 1.11 mg/dL 04/17/2020 9:39 PM CDT [facility] Alkaline Phosphatase 334(H) 40 - 150 U/L 04/17/2020 9:39 PM CDT [facility] ALT 30 0 - 61 U/L 04/17/2020 9:39 PM CDT [facility] AST 40(H) 5 - 34 U/L 04/17/2020 9:39 PM CDT [facility] Protein Total 5.3(L) 6.4 - 8.3 gm/dL 04/17/2020 9:39 PM CDT [facility] Albumin 2.7(L) 3.5 - 5.2 gm/dL 04/17/2020 9:39 PM CDT [facility] Bilirubin Total 0.3 0.2 - 1.0 mg/dL 04/17/2020 9:39 PM CDT [facility] eGFR by MDRD 60(L) >60 mL/min/1.7 3m2 04/17/2020 9:39 PM CDT [facility] eGFR by MDRD >60 >60 mL/min/1.7 3m2 04/17/2020 9:39 PM CDT [facility] Blood BLOOD SPECIMEN / Unknown Venipuncture / Unknown 04/17/2020 8:57 PM CDT 04/17/2020 9:09 PM CDT Mayuri Norton MD LAB - CHEMISTRY [facility] Organization Address City/State/ZIP Co de Phone Number [facility] [address] [place] [address] * (ABNORMAL) [facility] ANTIBODY IGG (04/17/2020 8:57 PM CDT) Rubella Antibody <0.90(L) Immune >0.99 index 04/19/2020 7:09 AM CDT [facility] ([facility]) Comment: ?Non-immune ? <0.90 ?Equivocal ??0.90 - 0.99 ?Immune ? >0.99 Blood BLOOD SPECIMEN / Unknown Venipuncture / Unknown 04/17/2020 8:57 PM CDT 04/17/2020 9:09 PM CDT Narrative [facility] ([facility]) - 04/19/2020 7:09 AM CDT Performed at: ??[address] ??[id number] Psych Specialist: Tyrone Rider PhD, Phone: ??[phone] Mayuri Norton MD LAB - SEROLOGY ORDER [facility] ([facility]) [address] [place] [address] * SYPHILIS ANTIBODY CASCADING REFLEX (04/17/2020 8:57 PM CDT) Treponema pallidum Antibody Non Reactive Non Reactive 04/17/2020 10:02 PM CDT [facility] Comment: No Laboratory evidence of syphilis infection. ?? Note: ??Circulating antibodies may be low or undetectable in early infection. ??If recent exposure is suspected, re-draw sample in 2-4 weeks and repeat testing. Blood BLOOD SPECIMEN / Unknown Venipuncture / Unknown 04/17/2020 8:57 PM CDT 04/17/2020 9:09 PM CDT Mayuri Norton MD LAB - SEROLOGY ORDER CRUZITO Performing Organization Address City/[facility]/ZIP Co de Phone Number [facility] [address] [place] [phone] * HIV-1 HIV-2 ANTIBODY + HIV P24 AG PANEL (04/17/2020 8:57 PM CDT) [facility] HIV1/2 Ab + P24 Ag Non Reactive Non Reactive 04/17/2020 10:02 PM CDT [facility] Blood BLOOD SPECIMEN / Unknown Venipuncture / Unknown 04/17/2020 8:57 PM CDT 04/17/2020 9:09 PM CDT Narrative [facility] - 04/17/2020 10:02 PM CDT No Laboratory evidence of HIV infection. Mayuri Norton MD LAB - CHEMISTRY ORDE RABLES Performing Organization Address [facility]/ZIP Co de Phone Number [facility] [address] [place] [phone] * FIBRINOGEN ACTIVITY (04/17/2020 8:57 PM CDT) [facility] Fibrinogen 325 200 - 400 mg/dL 04/17/2020 9:48 PM CDT [facility] Blood BLOOD SPECIMEN / Unknown Venipuncture / Unknown 04/17/2020 8:57 PM CDT 04/17/2020 9:08 PM CDT Mayuri Norton MD LAB - COAGULATION OR DERABLES Performing Organization Address [facility] Co de Phone Number [facility] [address] [place] [address] * (ABNORMAL) CULTURE URINE (04/17/2020 8:57 PM CDT) [facility] Culture Urine 50,000-100,000 CFU/mL Escherichia coli(A) BERT 04/19/2020 10:33 AM CDT [facility] Culture Urine 50,000-100,000 CFU/mL Streptococcus agalactiae (Group B)(A) 04/19/2020 10:33 AM T [facility] Culture Urine 50,000-100,000 CFU/mL urogenital aneudy BERT 04/19/2020 10:33 AM T [facility] Urine URINE SPECIMEN OBTAINED BY CLEAN CATCH PROCEDURE / Unknown Collection / Unknown 04/17/2020 8:57 PM CDT 04/17/2020 9:08 PM CDT Narrative [facility] - 04/19/2020 10:33 AM CDT [...] Johnson MD LAB - MICROBIOLOGY O RDERABLES [facility] [address] [place] [address], [facility] [phone] * (ABNORMAL) URINALYSIS REFLEX TO MICROSCOPIC NO CULTURE (04/17/2020 8:57 PM CDT) Color UA Yellow Straw, Yellow 04/17/2020 9:18 PM CDT [facility] Clarity UA Slt Cloudy(A) Clear 04/17/2020 9:18 PM CDT [facility] Glucose UA Negative Negative 04/17/2020 9:18 PM CDT [facility] Bilirubin UA Negative Negative 04/17/2020 9:18 PM CDT [facility] Ketone UA Negative Negative 04/17/2020 9:18 PM CDT [facility] Specific [place] UA 1.015 1.005 - 1.030 04/17/2020 9:18 PM CDT [facility] Blood UA 3+(A) Negative 04/17/2020 9:18 PM CDT [facility] pH UA 6.0 5.0 - 8.0 pH 04/17/2020 9:18 PM CDT [facility] Protein UA 1+(A) Negative 04/17/2020 9:18 PM CDT [facility] Urobilinogen UA Negative Negative mg/dL 04/17/2020 9:18 PM CDT [facility] Nitrite UA Negative Negative 04/17/2020 9:18 PM CDT [facility] Leukocyte UA Negative Negative 04/17/2020 9:18 PM CDT [facility] Urine Microscopy Urine microscopy to follow 04/17/2020 9:18 PM CDT [facility] Urine URINE SPECIMEN OBTAINED BY CLEAN CATCH PROCEDURE / Unknown Collection / Unknown 04/17/2020 8:57 PM CDT 04/17/2020 9:08 PM CDT Narrative [facility] - 04/17/2020 9:18 PM CDT Annabella Johnson MD LAB - URINALYSIS ORD ERABLES [facility] [address] [place] [address] * (ABNORMAL) DRUG SCREEN TOX URINE PANEL (04/17/2020 8:57 PM CDT) Amphetamines Screen Urine Detected(A) Not detected 04/17/2020 9:38 PM CDT [facility] Barbiturates Screen Urine Not detected Not detected 04/17/2020 9:38 PM CDT [facility] Benzodiazepines Screen Urine Not detected Not detected 04/17/2020 9:38 PM CDT [facility] Cannabinoids Screen Urine Not detected Not detected 04/17/2020 9:38 PM CDT [facility] Cocaine Screen Urine Not detected Not detected 04/17/2020 9:38 PM CDT [facility] Fentanyl Urine Not detected Not detected 04/17/2020 9:38 PM CDT [facility] Methadone Screen Urine Not detected Not detected 04/17/2020 9:38 PM CDT [facility] Opiate Screen Urine Not detected Not detected 04/17/2020 9:38 PM CDT [facility] Phencyclidine Screen Urine Not detected Not detected 04/17/2020 9:38 PM CDT [facility] Urine URINE / Unknown Collection / Unknown 04/17/2020 8:57 PM CDT 04/17/2020 9:08 PM CDT Narrative [facility] - 04/17/2020 9:38 PM CDT This [...] MD LAB - URINE CHEMISTR Y ORDERABLES [facility] [address] [place] [address] * BLOOD TYPE VERIFICATION (04/17/2020 8:24 PM CDT) ABO Rh A POS 04/17/2020 8:4 7 PM CDT [facility] Blood Bank BLOOD SPECIMEN / Unknown Venipuncture / Unknown 04/17/2020 8:24 PM CDT 04/17/2020 8:24 PM CDT Phuong Frazier MD LAB - BLOOD BANK OR DERABLES Performing Organization Address City/[facility]/ZIP Co de Phone Number [facility] [address] [place] [address] * PREPARE (CROSSMATCH) RBC UNIT(S), 1 Units (04/17/2020 8:12 PM CDT) Unit Description AS1 LR PRBC [facility] Unit ABO A [facility] Unit Rh POS [facility] Product Number R02 [facility] Unit Donor # [id number] [facility] LAB Unit Status released [facility] Product Code [id number] [facility] Blood Type Barcode 6200 [facility] Expiration Date S [facility] Unit Description AS1 LR PRBC [facility] Unit ABO A [facility] Unit Rh POS [facility] Product Number R02 [facility] Unit Donor # [id number] [facility] C [facility] Unit Status transfused [facility] Product Code [id number] [facility] Blood Type Barcode 6200 [facility] Expiration Date S [facility] B[facility]OD [facility] LAB Blood Bank BLOOD SPECIMEN / Unknown 04/17/2020 8:12 PM CDT 04/17/2020 8:16 PM CDT Shayna Chirinos MD LAB - BLOOD BANK ORDERABLES Performing Organization Address [facility]/ZIP Co de Phone Number [facility] [address] [place] [address] * PREPARE (CROSSMATCH) RBC UNIT(S), 1 Units (04/17/2020 8:12 PM CDT) Unit Description AS1 LR PRBC [facility] Unit ABO A [facility] Unit Rh POS [facility] Product Number R02 [facility] Unit Donor # [id number] [facility] Unit Status released [facility] BLO OD [facility]ANK [facility] Product Code [id number] [facility] Blood Type Barcode 6200 [facility] Expiration Date S [facility] Unit Description AS1 LR PRBC [facility] Unit ABO A [facility] Unit Rh POS [facility] Product Number R02 [facility] Unit Donor # [id number] [facility] C BLO[facility] Unit Status transfused [facility] Product Code [id number] [facility] Blood Type Barcode 6200 [facility] Expiration Date S [facility] BLOOD [facility] LAB Blood Bank BLOOD SPECIMEN / Unknown 04/17/2020 8:12 PM CDT 04/17/2020 8:16 PM CDT Marisa James MD LAB - BLOOD BANK ORD ERABLES [facility] [address] [phone] * PATHOLOGY PERIPHERAL SMEAR REVIEW (04/17/2020 8:12 PM CDT) Case Report Pathology Interpretation Report ? Case: [id number] ? Authorizing Provider: ??Heraclio Dave MD ? Collected: ? 04/17/2020 08:12 PM ? Ordering Location: ? [facility] 4 ICU MEDICAL ? Received: ?04/18/2020 08:36 AM ? Pathologist: ? Kathleen Clay, ? MD ? Specimen: ?Blood ? 04/18/2020 2:22 PM CDT [facility] Final Diagnosis Final diagnosis: - WBC [...] correlation is advised. 04/18/2020 2:22 PM CDT [facility] Blood BLOOD SPECIMEN / Unknown 04/17/2020 8:12 PM CDT 04/18/2020 8:36 AM CDT Heraclio Dave MD LAB - PATHOLOGY/CYTO LOGY ORDERABLES Performing Organization Address City/[facility]/ZIP Co de Phone Number [facility] [address] [place] [address] * PREPARE CRYOPRECIPITATE UNIT (S), 2 Units (04/17/2020 8:12 PM CDT) Unit Description Thawed Cryp Clsd [facility] Unit ABO A [facility] Unit Rh POS [facility] Product Number [id number] [facility] Unit Donor # [id number] [facility] C [facility] Unit Status transfused [facility] Product Code [id number] [facility] Blood Type Barcode 6200 [facility] Expiration Date S [facility] Unit Description Thawed Cryp Clsd [facility] Unit ABO A [facility] Unit Rh POS [facility] Product Number [id number] [facility] Unit Donor # [id number] [facility] C B[facility] Unit Status transfused [facility] Product Code [id number] [facility]OD [facility] LAB Blood Type Barcode 6200 [facility] Expiration Date S [facility] BLOOD [facility] LAB Blood Bank BLOOD SPECIMEN / Unknown 04/17/2020 8:12 PM CDT 04/17/2020 8:16 PM CDT Phuong Frazier MD LAB - BLOOD BANK OR DERABLES Performing Organization Address City/[facility]/ZIP Co de Phone Number [facility] [address] [phone] * PREPARE (CROSSMATCH) RBC UNIT(S), 2 Units (04/17/2020 8:12 PM CDT) Unit Description AS1 LR PRBC [facility] Unit ABO A [facility] Unit Rh POS [facility] Product Number R02 [facility] Unit Donor # [id number] [facility] BLOOD BANK LAB Unit Status released [facility] OD BANK LAB Product Code [id number] [facility] Blood Type Barcode 6200 [facility] Expiration Date [id number] S [facility] B[facility] Unit Description AS1 LR PRBC [facility] Unit ABO A [facility] Unit Rh POS [facility] Product Number R02 [facility] Unit Donor # [id number] [facility] BLOOD [facility] Unit Status released [facility] Product Code [id number] [facility] Blood Type Barcode 6200 [facility] Expiration Date [id number] [facility] BLOOD [facility] Unit Description AS1 LR PRBC [facility] Unit ABO A [facility] Unit Rh POS [facility] Product Number R02 [facility] Unit Donor # [id number] [facility] B[facility] Unit Status released [facility] Product Code [id number] [facility] Blood Type Barcode 6200 [facility] Expiration Date [id number] [facility] B[facility]OD [facility] Unit Description AS1 LR PRBC [facility] Unit ABO A [facility] Unit Rh POS [facility] Product Number R02 [facility] Unit Donor # [id number] [facility] B[facility] Unit Status released [facility] Product Code [id number] [facility] Blood Type Barcode 6200 [facility] Expiration Date [id number] [facility] B[facility]OD [facility] Unit Description AS1 LR PRBC [facility] Unit ABO A [facility] Unit Rh POS [facility] Product Number R44 [facility] Unit Donor # [id number] [facility] B[facility]OD [facility] Unit Status transfused [facility]OD [facility] Product Code [id number] [facility] Blood Type Barcode 6200 [facility] Expiration Date [id number] [facility] BLOOD BANK LAB Blood Bank BLOOD SPECIMEN / Unknown 04/17/2020 8:12 PM CDT 04/17/2020 8:16 PM CDT Mayuri Norton MD LAB - BLOOD BANK ORD ERABLES [facility] [address] [phone] * PREPARE (CROSSMATCH) RBC UNIT(S), 1 Units (04/17/2020 8:12 PM CDT) Unit Description AS1 LR PRBC [facility] Unit ABO A [facility] Unit Rh POS [facility] Product Number R02 [facility] Unit Donor # [id number] [facility] Unit Status transfused [facility] Product Code [id number] [facility] Blood Type Barcode 5070 [facility] Expiration Date S [facility] BLOOD [facility] LAB Blood Bank BLOOD SPECIMEN / Unknown 04/17/2020 8:12 PM CDT 04/17/2020 8:16 PM CDT Mayuri Norton MD LAB - BLOOD BANK ORD ERABLES Performing Organization Address City/[facility]/ZIP Co de Phone Number [facility] [address] [place] [address] * PREPARE FFP UNIT(S), 1 Units (04/17/2020 8:12 PM CDT) Unit Description Thawed Plasma 5D [facility] Unit ABO AB [facility] Unit Rh POS [facility] Product Number E5548 [facility] Unit Donor # [id number] [facility] B[facility] Unit Status released [facility] Product Code [id number] [facility] Blood Type Barcode 8400 [facility] Expiration Date [id number] S [facility] Unit Description Thawed Plasma 5D [facility] Unit ABO AB [facility] Unit Rh POS [facility] Product Number [id number] [facility] Unit Donor # [id number] [facility] C BLOOD [facility]ANK LAB Unit Status transfused [facility] Product Code [id number] [facility] Blood Type Barcode 8400 [facility] Expiration Date [facility] Unit Description Thawed Plasma 5D [facility] Unit ABO AB [facility] Unit Rh POS [facility] Product Number [id number] [facility] Unit Donor # [id number] [facility] Unit Status transfused [facility] Product Code [id number] [facility] Blood Type Barcode 8400 [facility] Expiration Date [facility] BLOOD [facility] LAB Blood Bank BLOOD SPECIMEN / Unknown 04/17/2020 8:12 PM CDT 04/17/2020 8:16 PM CDT Afsaneh Sandoval MD LAB - BLOOD BANK ORD ERABLES [facility] [address] [phone] * PREPARE PLATELET PHERESIS UNIT(S), 2 Units (04/17/2020 8:12 PM CDT) Unit Description LR PLT Pher IRR [facility] Unit ABO AB [facility] Unit Rh POS [facility] Product Number P14 [facility] Unit Donor # [id number] [facility] B[facility] Unit Status transfused [facility] Product Code [id number] [facility] Blood Type Barcode 8400 [facility] Expiration Date [facility] Unit Description LR PLT Pheresis [facility] Unit ABO A [facility] Unit Rh POS [facility] Product Number P01 [facility] Unit Donor # [id number] [facility] Unit Status released [facility] Product Code [id number] [facility] Blood Type Barcode 6200 [facility] Expiration Date [facility] Unit Description LR PLT Pheresis [facility] Unit ABO A [facility] Unit Rh POS [facility] B[facility] Product Number P04 [facility] Unit Donor # [id number] [facility] Unit Status released [facility] Product Code [id number] [facility] Blood Type Barcode 6200 [facility] Expiration Date [id number] S [facility] B[facility] LAB Blood Bank BLOOD SPECIMEN / Unknown 04/17/2020 8:12 PM CDT 04/17/2020 8:16 PM CDT Afsaneh Sandvoal MD LAB - BLOOD BANK ORD ERABLES Performing Organization Address City/[facility]/ZIP Co de Phone Number [facility] [address] [phone] * PREPARE PLATELET PHERESIS UNIT(S), 2 Units (04/17/2020 8:12 PM CDT) Pathologist [facility] Unit Description LR PLT Pheresis [facility] Unit ABO A [facility] Unit Rh POS [facility] Product Number P02 [facility] Unit Donor # [id number] [facility] Unit Status transfused [facility] Product Code [id number] [facility] Blood Type Barcode 6200 [facility] Expiration Date [id number] S [facility] B[facility] LAB Blood Bank BLOOD SPECIMEN / Unknown 04/17/2020 8:12 PM CDT 04/17/2020 8:16 PM CDT Mayuri Norton MD LAB - BLOOD BANK ORD ERABLES Performing Organization Address [facility] Co de Phone Number [facility] [address] [place] [address] * (ABNORMAL) SLIDE SCAN HEMATOLOGY (04/17/2020 8:12 PM CDT) Pathologist [facility] Platelet Estimation Markedly decreased(A ) Normal, Adequate platelets 04/17/2020 8:39 PM CDT [facility] Anisocytosis 1+(A) None 04/17/2020 8:39 PM CDT [facility] Blood BLOOD SPECIMEN / Unknown Venipuncture / Unknown 04/17/2020 8:12 PM CDT 04/17/2020 8:16 PM CDT Annabella Johnson MD LAB - HEMATOLOGY ORD ERABLES [facility] [address] [place] [address] * PREPARE PLATELET PHERESIS UNIT(S), 2 Units (04/17/2020 8:12 PM CDT) Unit Description LR PLT Pheresis [facility] Unit ABO A [facility] Unit Rh POS [facility] Product Number P02 [facility] Unit Donor # [id number] [facility] Unit Status transfused [facility] Product Code [id number] [facility] Blood Type Barcode 6200 [facility] Expiration Date [facility] Unit Description LR PLT Pher IRR [facility] Unit ABO B [facility] Unit Rh POS [facility] Product Number P10 [facility] Unit Donor # [id number] [facility] Unit Status released [facility] Product Code [id number] [facility] Blood Type Barcode 7300 [facility] Expiration Date [facility] Unit Description LR PLT Pheresis [facility] Unit ABO A [facility] Unit Rh POS [facility] Product Number P02 [facility] Unit Donor # [id number] [facility] Unit Status transfused [facility] Product Code [id number] [facility] Blood Type Barcode 6200 [facility] Expiration Date [facility] Unit Description LR PLT Pheresis [facility] Unit ABO A [facility] Unit Rh POS [facility] Product Number P02 [facility] Unit Donor # [id number] [facility] Unit Status transfused [facility] Product Code [id number] [facility] Blood Type Barcode 6200 [facility] Expiration Date [facility] Unit Description LR PLT Pheresis [facility] Unit ABO A [facility] Unit Rh POS [facility] Product Number P02 [facility] Unit Donor # [id number] [facility] Unit Status transfused [facility] Product Code [id number] [facility] Blood Type Barcode 6200 [facility] Expiration Date [id number] [facility] Blood Bank BLOOD SPECIMEN / Unknown 04/17/2020 8:12 PM CDT 04/17/2020 8:16 PM CDT Annabella Johnson MD LAB - BLOOD BANK ORD ERABLES [facility] [address] [place] [address] * PREPARE (CROSSMATCH) RBC UNIT(S), 2 Units (04/17/2020 8:12 PM CDT) Unit Description AS1 LR PRBC [facility] Unit ABO A [facility] Unit Rh POS [facility] Product Number R02 [facility] Unit Donor # [id number] [facility] Unit Status transfused [facility] Product Code [id number] [facility] Blood Type Barcode 6200 [facility] Expiration Date S [facility] Unit Description AS1 LR PRBC [facility] Unit ABO A [facility] Unit Rh POS [facility] Product Number R43 [facility] Unit Donor # [id number] [facility] Unit Status transfused [facility] Product Code [id number] [facility] Blood Type Barcode 6200 [facility] Expiration Date [id number] [facility] Unit Description AS1 LR PRBC [facility] Unit ABO A [facility] Unit Rh NEG [facility] Product Number R02 [facility] Unit Donor # [id number] [facility] Unit Status transfused [facility] Product Code [id number] [facility] Blood Type Barcode 0600 [facility] Expiration Date [id number] [facility] Unit Description AS5 LR PRBC [facility] Unit ABO A [facility] Unit Rh POS [facility] Product Number R22 [facility] Unit Donor # [id number] [facility] Unit Status transfused [facility] Product Code [id number] [facility] Blood Type Barcode 6200 [facility] Expiration Date [id number] S [facility] Blood Bank BLOOD SPECIMEN / Unknown 04/17/2020 8:12 PM CDT 04/17/2020 8:16 PM CDT Annabella Johnson MD LAB - BLOOD BANK ORD ERABLES Performing Organization Address [facility] Co de Phone Number [facility] [address] [place] [address] * TYPE + SCREEN PANEL (04/17/2020 8:12 PM CDT) Pathologist [facility] ABO Rh A POS 04/17/2020 8:47 PM CDT [facility] Antibody Screen NEG 0 8:47 PM CDT [facility] Blood Bank BLOOD SPECIMEN / Unknown Venipuncture / Unknown 04/17/2020 8:12 PM CDT 04/17/2020 8:16 PM CDT Annabella Johnson MD LAB - BLOOD BANK ORD ERABLES Performing Organization Address City/[facility]/ZIP Co de Phone Number [facility] [address] [place] [address] * (ABNORMAL) CBC W AUTO DIFFERENTIAL (04/17/2020 8:12 PM CDT) WBC 7.9 4.4 - 10.7 x10E9/L 04/17/2020 8:26 PM CDT [facility] WBC Corrected 04/17/2020 8:26 PM CDT [facility] RBC 3.87 3.80 - 5.20 x10E12/L 04/17/2020 8:26 PM CDT [facility] Hemoglobin 10.1(L) 12.0 - 15.6 gm/dL 04/17/2020 8: PM CDT [facility] Hematocrit 31.8(L) 35.9 - 45.5 % 04/17/2020 8: PM CDT [facility] MCV 82.2 80.7 - 98.3 fl 04/17/2020 8: PM CDT [facility] MCH 26.1(L) 26.7 - 34.0 pg 04/17/2020 8: PM CDT [facility] MCHC 31.8 30.8 - 35.9 gm/dL 04/17/2020 8: PM CDT [facility] Platelet Count 30(LL) 153 - 416 x10E9/L 04/17/2020 8: PM [facility] RDW-CV 19.3(H) 12.1 - 14.9 % 04/17/2020 8: PM CDT [facility] Neutrophils % 70.2 44.0 - 73.0 % 04/17/2020 8: PM CDT [facility] Lymphocytes % 19.9(L) 20.0 - 43.0 % 04/17/2020 8: PM CDT [facility] Monocytes % 6.7 5.0 - 13.0 % 04/17/2020 8: PM CDT [facility] Eosinophils % 1.3 0.0 - 6.0 % 04/17/2020 8: PM CDT [facility] Basophils % 0.5 0.0 - 2.0 % 04/17/2020 8: PM CDT [facility] Immature Granulocytes 1.4(H) 0 - 1 % 04/17/2020 8: PM CDT [facility] Neutrophil Absolute 5.54 2.01 - 7.14 x10E9/L 04/17/2020 8: PM CDT [facility] Lymphocytes Absolute 1.57 1.07 - 3.94 x10E9/L 04/17/2020 8: PM CDT [facility] Monocytes Absolute 0.53 0.26 - 1.07 x10E9/L 04/17/2020 8: PM CDT [facility] Eosinophils Absolute 0.10 0 - 0.47 x10E9/L 04/17/2020 8:26 PM CDT [facility] Basophils Absolute 0.04 0 - 0.08 x10E9/L 04/17/2020 8:26 PM CDT [facility] Immature Granulocytes Absolute 0.11(H) 0.00 - 0.06 x10E9/L 04/17/2020 8:26 PM CDT [facility] nRBC Auto 0 /100 WBC 04/17/2020 8:26 PM CDT [facility] Blood BLOOD SPECIMEN / Unknown Venipuncture / Unknown 04/17/2020 8:12 PM CDT 04/17/2020 8:16 PM CDT Annabella Johnson MD LAB - HEMATOLOGY ORD ERABLES [facility] [address] [place] [address] documented in this encounter Visit Diagnoses Diagnosis Hemorrhagic shock (HCC)- Primary Other shock without mention of trauma Twin gestation in third trimester, unspecified multiple gestation type (HCC) Intubation of airway performed without difficulty Pre-eclampsia in third trimester (HCC) Mild or unspecified pre-eclampsia, antepartum Twin (HCC) Twin delivery by (HCC) Twin , delivered documented in this encounter Administered Medications Inactive [...] 11:55 AM CDT 3 mL/hr 0.9% NaCl injection 1-10 mL 1-10 mL, [...] be given prior to blood product transfusion calcium gluconate 10 % injection 1 g 1 g, Intravenous, PRN, magnesium overdose, Starting on 04/20/20 at 1421, Until Tue04/23/20 at 1706, Watch for signs and symptoms of Magnesium Sulfate toxicity: A) Magnesium Sulfate level greater than 7. B) Absence of reflexes. C) Respirations less than 10-12 per minute. cyanocobalamin (VITAMIN B-12) injection 1,000 mcg 1,000 mcg, Intramuscular, DAILY, 7 doses, First dose on Tue04/18/20 at 0900, Last dose on Tue04/24/20 at 0900 $ Given 04/23/2020 9:14 AM CDT 1,000 mcg Right Deltoid $ Given 04/22/2020 9:15 AM CDT 1,000 mcg Ri ght Deltoid $ Given 04/21/2020 9:31 AM CDT 1,000 mcg Le ft Deltoid diphenhydrAMINE (BENADRYL) capsule 25 mg 25 mg, [...] IV if unable to take diphenhydramine orally docusate sodium (COLACE) capsule 100 mg 100 mg, Oral, 2 TIMES DAILY, 730 doses, First dose on Tue04/19/20 at 2100, Last dose on Tue04/19/21 at 0900, $ Given 04/23/2020 9:13 AM CDT 100 mg $ Given 04/22/2020 8:38 PM CDT 100 mg $ Given 04/22/2020 8:43 AM CDT 100 mg famotidine (PEPCID) tablet 20 mg 20 mg, Oral, 2 TIMES DAILY, 730 doses, First dose on Tue04/19/20 at 2100, Last dose on Tue04/19/21 at 0900, $ Given 04/23/2020 9:13 AM CDT 20 mg $ Given 04/22/2020 8:38 PM CDT 20 mg $ Given 04/22/2020 8:43 AM CDT 20 mg folic acid (FOLVITE) tablet 1 mg 1 mg, Oral, DAILY, First dose on Tue04/23/20 at 1200, Until Discontinued $ Given 04/23/2020 2:06 PM CDT 1 mg ibuprofen (MOTRIN) tablet 600 mg 600 mg, Oral, EVERY 6 HOURS, First dose on Tue04/20/20 at 1100, Until Discontinued, Maximum allowable amount = 3200 mg / 24 hours. $ Given 04/23/2020 9:14 AM CDT 600 mg $ Given 04/23/2020 1:36 AM CDT 600 mg $ Given 04/22/2020 7:45 PM CDT 600 mg iron polysaccharides (NIFEREX 150) capsule 150 mg 150 mg, Oral, DAILY, First dose on Tue04/19/20 at 1630, Until Discontinued, $ Given 04/23/2020 9:14 AM CDT 150 mg $ Given 04/22/2020 8:44 AM CDT 150 mg $ Given 04/21/2020 9:13 AM CDT 150 mg magnesium hydroxide (MILK OF MAGNESIA) suspension 30 mL 30 mL, Oral, DAILY, First dose on Tue04/21/20 at 0900, Until Discontinued, Shake well before using. $ Given 04/22/2020 8:42 AM CDT 30 mL $ Given 04/21/2020 9:08 AM CDT 30 mL nitrofurantoin monohyd macro crystals (MACROBID) capsule 100 [...] Given 04/22/2020 12:35 PM CDT 100 mg ondansetron (disintegrating) (ZOFRAN ODT) tablet 4 mg [...] Until Tue04/23/20 at 1706 $ Given 04/23/2020 4:56 AM CDT 5 mg $ Given 04/23/2020 12:36 AM CDT 5 mg $ Given 04/22/2020 8:37 PM CDT 5 mg polyethylene glycol 3350 (MIRALAX) packet 17 g 17 g, Oral, DAILY, First dose on Tue04/21/20 at 0900, Until Discontinued, Mix in 8 ounces of water, juice, soda, coffee or tea prior to administration $ Given 04/22/2020 8:42 AM CDT 17 g $ Given 04/21/2020 9:08 AM CDT 17 g vitamin with iron tablet 1 tablet 1 tablet, Oral, DAILY, 365 doses, First dose on 04/19/20 at 1630, Last dose on 04/18/21 at 0900, $ Given 04/23/2020 9:13 AM CDT 1 tablet $ Given 04/22/2020 8:43 AM CDT 1 tablet $ Given 04/21/2020 9:12 AM CDT 1 tablet simethicone (MYLICON) chew tablet 160 mg 160 [...] Given 04/22/2020 8:43 AM CDT 80 mg documented in this encounter Active and Recently [...] Keller RN)1616 ($ Given - Provider: Jerrod Yoon RN)2347 ($ Given - Provider: Nazanin Presley, ALICE) 0633 ($ Given - Provider: Nazanin Presley, ALICE)1337 (Not Administered - Provider: Maureen Banerjee RN - Reason: Loss of Access)2140 (Not Administered - Provider: Keren Cosme RN - Reason: Loss of Access) 0544 (Not [...] RN) 0406 ($ Given - Provider: Nazanin Presley, ALICE)0600 (Not Administered - Provider: Nazanin Presley RN [...] 2100, Last dose on 04/19/21 at 0900, 09 ($ Given - Provider: Jerrod Yoon RN)2108 ($ Given - Provider: Nazanin Presley, RN) 0843 ($ Given - Provider: Maureen Banerjee, RN)2037 ($ Given - Provider: Keren Cosme, RN) 09 ($ Given - Provider: Mary Ann Koo) famotidine (PEPCID) tablet 20 mg 20 mg, Oral, 2 TIMES DAILY, 730 doses, First dose on Tue04/19/20 at 2100, Last dose on 04/19/21 at 0900, 09 ($ Given - Provider: Jerrod Yoon RN)2108 ($ Given - Provider: Nazanin Presley, ALICE) 0843 ($ Given - Provider: Maureen Banerjee, RN)2037 ($ Given - Provider: Keren Cosme, [...] 0915 ($ New Bag/Syringe - Provider: Maureen Banerjee, RN)0945 (Stopped - Provider: Maureen Banerjee, RN) furosemide (LASIX) injection 20 mg (COMPLETED) 20 mg, Intravenous, ONCE, 1 dose, On Tue04/21/20 at 0815 0909 ($ Given - Provider: Jerrod Yoon RN) ibuprofen (MOTRIN) tablet 600 mg 600 mg, Oral, EVERY 6 HOURS, First dose on Tue04/20/20 at 1100, Until Discontinued, Maximum allowable amount = 3200 mg / 24 hours. 0600 ($ Given - Provider: Vandana Keller RN)1206 ($ Given - Provider: Jerrod Yoon RN)1809 ($ Given - Provider: Chelo Hudson RN)2343 ($ Given - Provider: Nazanin Presley, ALICE) 0633 ($ Given - Provider: Nazanin Presley, ALICE)1226 (Not Administered - Provider: Maureen Banerjee RN - Reason: See Comments - Comment: too early)1236 ($ Given - Provider: Maureen Banerjee RN)1945 ($ Given - Provider: Keren Cosme, ALICE) 0136 ($ Given - Provider: Keren Cosme, [...] Banerjee RN)1946 ($ Given - Provider: Keren Cosme RN) 0913 ($ Given - Provider: Mary [...] RN)1100 ($ New Bag/Syringe - Provider: Jerrod Yoon RN)1315 (Stopped - Provider: Jerrod Yoon RN) vitamin with iron tablet 1 tablet 1 tablet, Oral, DAILY, 365 doses, First dose on Tue04/19/20 at 1630, Last dose on Tue04/18/21 at 0900, 0912 ($ Given - Provider: Jerrod Yoon RN) 0843 ($ Given - Provider: Maureen Banerjee RN) 0913 ($ Given - Provider: Mary Ann Koo) simethicone (MYLICON) chew tablet 160 mg 160 mg, Oral, DAILY, First dose (after last modification) on Tue04/21/20 at 0900, Until Discontinued, 0913 ($ Given - Provider: Jerrod Yoon RN) 1225 (Not Administered - Provider: Maureen Banerjee RN - Reason: Refused-Patient) 0913 ($ Given - Provider: Mary Ann Koo) Continuous Medication Order 04/21/2020 04/22/2020 04/23/2020 magnesium sulfate 40 g in 1000 mL infusion (CANCELED) 2 g/hr (50 mL/hr), Intravenous, CONTINUOUS, Starting on Tue04/20/20 at 1500, Until Tue04/21/20 at 1520 0934 [...] TIMES DAILY PRN, perianal pain, Starting on 04/19/20 at 1620, Until Tue04/23/20 at 1706, . [...] EVERY 6 HOURS PRN, Itching, Starting on Tue04/19/20 at 1620, Until Tue04/23/20 at 1706, diphenhydrAMINE [...] 04/20/20 at 1050, Until 04/23/20 at 1706 0038 ($ Given - Provider: [...] Presley RN)0851 ($ Given - Provider: Maureen Banerjee, ALICE)1246 ($ Given - Provider: Maureen Banerjee, RN)1635 ($ Given - Provider: Vandana Licona, ALICE)2037 ($ Given - Provider: Keren Cosme, ALICE) 0036 ($ Given - Provider: Keren Cosme, RN)0456 ($ Given - Provider: Keren Cosme, RN) simethicone (MYLICON) chew tablet 160 mg (CANCELED) 160 mg, Oral, QID PRN (after meals and at bedtime), Gas Pain, Starting on 04/19/20 at 1620, Until Tue04/21/20 at 0456, 0434 ($ Given - Provider: Vandana Keller RN) simethicone (MYLICON) chew tablet 80 mg 80 mg, Oral, 4 TIMES DAILY PRN, Gas Pain, Starting on Tue04/21/20 at 0454, Until Tue04/23/20 at 1706 0843 [...] dose, Starting on 04/19/20 at 2224, Until 04/23/20 at 1706, To be given prior to blood product transfusion. Give IV if unable to take diphenhydramine orally documented in this encounter Care Teams Sociology Professor Relationship Specialty Start Date End Date Alejandro Blevins MD [address] [place] [id number] PCP - General Family Medicine 12/07/19 documented as of this encounter
--- OUTSIDE RECORDS SUMMARY | 2024-07-11 05:38 | XMS_ITS | Encounter Summary ---
Author Organization [facility] Address [address] [place] [address] Care Team Providers Care Lead Welder Name Role Phone Alejandro Blevins MD Primary Care Provider [phone] Reason for Visit * Reason Comments Routine Visit * Evaluate & Treat (Routine) - Closed Specialty Diagnoses / Procedures Referred By Scarlet guzman Referred To Contact Maternal Medicine Diagnoses Supervision of other high risk pregnancies, unspecified trimester (HCC) Anemia complicating , unspecified trimester (HCC) Unspecified viral hepatitis C without hepatic coma Procedures ID FULL ROUT OBSTE CARE,VAGINAL Walter George MD [address] [place] [address] [facility] [address] [place] [address] Referral ID Status Reason Start Date Expiration Date Visits Re quested Visits Authorized [id number] Closed 12/19/2019 06/16/2020 18 18 Encounter Details Date Type Department Care Team (Late st Contact Info) Description 01/23/2020 1:00 PM CDT - 01/23/2020 1:04 PM CDT Hospital Encounter [facility]ERNAL/ EVALUATION UNIT [address] [place] [address] Machelle Costello MD [address] [facility] [address] [place] [address] Discharge Disposition: Home or Self Care Social [...] Sig Dispensed Refills Start Date End Date cyanocobalamin 1000 MCG Take 1 tablet by mouth once daily 30 tablet 2 12/10/2019 04/23/2020 ferrous sulfate 325 (65 FE) MG tablet Take 1 tablet by mouth once daily 100 tablet 12/09/2019 04/23/2020 folic acid (FOLVITE) 1 MG tablet Take 1 tablet by mouth once daily 30 tablet 2 12/09/2019 04/23/2020 nitrofurantoin monohyd macro crystals (MACROBID) 100 MG capsuleIndications:Anem ia, unspecified type Take 1 capsule by mouth 2 times daily with morning and evening meal 8 capsule 12/09/2019 01/24/2020 documented as of this encounter Progress Notes * Machelle Costello MD - 01/23/2020 1:00 PM CDT M[facility] Fellow [facility] Return Visit 01/23/2020 S: Hillary Smalls is a 29 year old @ 25w6d Today she notes bruising on her abdomen and at IV Venofer infusion sites. No epistaxis or gum bleeding. She reports being tired; felt like the venofer infusions did help with that. Denies CTX, LOF, VB; +FM x 2. Her is c/b: Patient Active Problem List: Anemia Hepatitis C virus infection without hepatic coma Thrombocytopenia affecting Transaminitis Twin Polysubstance abuse screening for malformation using ultrasonics Screening, , for risk of pre-term labor O: Vitals: 01/23/20 1315 BP: 131/76 Pulse: (!) 113 Weight: 152 lb (68.9 kg) FH > dates due to twins FHT - see US report No results for input(s): PROTEINUA, GLUCOSEUA, KETONEUA in the last 20685 hours. A/P: Hillary Smalls is a 29 year old at 25w6d Supervision of high risk PNL: A pos, RI, HB NR, HIV NR, RPR NR Datin week ultrasound Declined genetic testing Anatomy: No major malformations, incomplete anatomy Needs GCT/CBC/HIV/RPR and Tdap at 28 weeks Needs GBS at 36 weeks, possibly early if concern for PTL Delivery planning: history of 2 prior , however delivery mode to be determined by twin presentation and EFW as progresses ?? Microcytic anemia+thrombocytopenia?? Was admitted 12/07 for transfusion and heme/onc consult, suspect severe nutritional deficiency; not hemolytic. S/p 2 U PRBC transfusion Per pt, she has always had low platelets and traces back to when she was dx with Hep C. Denies any bleeding. Gums do bleed when she brushes her teeth. Normal bone marrow bx with retail presentation specialist 6 years ago per her own report. Broad differential, including chronic hepatitis C, severe iron deficiency, nutritional deficiency, drug induced, autoimmune. Rheumatic a possibility with elevated anticardiolipin antibody, though MARQUITA is negative - rheum referral made. Would not pursue anticoagulation or ASA at this time due to thrombocytopenia. [facility] - Dr. Alex in [facility]. S/p weekly venofer infusions and B12 injections. Transfuse if platelets <20k or earlier if spontaneously bleeding Not currently a candidate for neuraxial anesthesia, discussed this with patient ?? Di/Di Twins No major malformations, needs complete anatomy Plan for cervical lengths every 2 weeks, serial growth ultrasounds Delivery by 38 weeks unless indicated sooner ?? 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 Jain, in the past. ?? 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 UTI in Urine cult at OSH pos for E coli UTI S/p macrobid treatment ELI ordered today ?? Methamphetamine use in Used heroin, vicodin, and meth in the past Repeat UDS at last week's admission positive for meth, states last use last week prior to finding out she was , denies any additional use since that time Pt declines WISH UDS done 01/23/2020 ?? Tobacco use in Smoker x15 years Previously counseled on cessation ?? Pt following up with [facility] in [place], now s/p Venofer infusions and B12 injections, levels of ferritin/B12 now normal RTC in 2 week(s); needs GCT/CBC/28 wk labs at that visit D/W Dr Trang James MD 01/23/2020 1:44 PM MFM Attending I have seen and reviewed the patient with Dr. James. I agree with the above assessment, exams and plan. Exam: BP 131/76 Pulse 113 Wt 152 lb (68.9 kg) BMI 26.93 kg/m2 General: Alert and oriented x3, no acute distress Mentation: Normal mentation HEENT: Neck supple without masses, no LAD Cardiovascular: Regular rate and rhythm Lungs: clear to auscultation bilaterally, no wheezes/rhales Abdomen: soft, non-tender, gravid Back: no flank pain, spine normal appearance Extremities: No calf tenderness FHTs present Recent Labs Component Name 12/09/19 1421 12/08/19 1134 12/08/19 0224 WBC 16.0* - 9.8 HGB 7.8* - 5.2* HCT 26.5* - 19.5* PLTCOUNT 67* 61* 59* Recent Labs Component Name 12/08/19 0703 SODIUM 135* POTASSIUM 3.8 CHLORIDE 109* CO2 20* BUN 8 CREATININE 0.60 GLUCOSE 76 CALCIUM 7.7* ALT 52 ALKPHOS 70 AST 39* TBIL 0.2 TPROT 6.1* EGFR >60 EGFRAFR >60 ALBUMIN 2.9* I have the following to add to the assessment and plan: 29 year old at 25w6d 1. Severe microcytic anemia 2. Thrombocytopenia 3. DCDA twin 4. Hepatitis C, mild transaminitis 5. History of PSA, including IVDA, methamphetamine use 6. Tobacco use -Has been seen by [facility] in [place]. Received an RBC transfusion (2 units) at [facility] in November, with appropriate rise in Hgb. Received venofer and B12 injections. Workup for anemia and thrombocytopenia remarkable for severe iron deficiency only. MARQUITA was negative. Rheumatology consult has been recommendbut she hasn't been seen with them yet. The thrombocytopenia was thought to be due to the hepatitisC. Will need to follow serial labs to ensure appropriate trends. Continue oral iron supplementation. -Follow up in 2 weeks. Plan serial growth. testing at 32 weeks. Machelle Costello MD Maternal Medicine [facility] * Marbella Valdovinos - 01/23/2020 1:00 PM CDT The offices for Hematology and Hepatology will contact this patient upon approval of records. See letter Tab. documented in this encounter Plan of Treatment Not on file documented as of this encounter Procedures Procedure Name Priority Date/Time Associated Diagnosis Comments CULTURE URINE Routine 01/23/2020 2:38 PM CDT Supervision of high risk in second trimester (HCC) Other iron deficiency anemia Chronic hepatitis C without hepatic coma (HCC) URINE DRUG SCREEN IMMUNOASSAY Routine 01/23/2020 2:38 PM CDT Supervision of high risk in second trimester (HCC) documented in this encounter Results * (ABNORMAL) DRUG SCREEN TOX URINE PANEL (01/23/2020 2:38 PM CDT) [facility] Amphetamines Screen Urine Detected(A) Not detected 01/23/2020 3:12 PM CDT [facility] Barbiturates Screen Urine Not detected Not detected 01/23/2020 3:12 PM CDT [facility] Benzodiazepines Screen Urine Not detected Not detected 01/23/2020 3:12 PM CDT [facility] Cannabinoids Screen Urine Not detected Not detected 01/23/2020 3:12 PM CDT [facility] Cocaine Screen Urine Not detected Not detected 01/23/2020 3:12 PM CDT [facility] Fentanyl Urine Not detected Not detected 01/23/2020 3:12 PM CDT [facility] Methadone Screen Urine Not detected Not detected 01/23/2020 3:12 PM CDT [facility] Opiate Screen Urine Not detected Not detected 01/23/2020 3:12 PM CDT [facility] Phencyclidine Screen Urine Not detected Not detected 01/23/2020 3:12 PM CDT [facility] Urine URINE / Unknown Collection / Unknown 01/23/2020 2:38 PM CDT 01/23/2020 2:49 PM CDT Narrative [facility] - 01/23/2020 3:12 PM CDT This drug screen is designed [...] ng/mL OPIATES ?300 ng/mL PHENCYCLIDINE(PCP) ??25 ng/mL Marisa James MD LAB - URINE CHEMISTR Y ORDERABLES [facility] [address] [place], [place] [id number] * (ABNORMAL) CULTURE URINE (01/23/2020 2:38 PM CDT) Culture Urine >100,000 CFU/mL Escherichia coli(A) BERT 01/25/2020 3:46 AM CDT [facility] Urine URINE SPECIMEN OBTAINED BY CLEAN CATCH PROCEDURE / Unknown Collection / Unknown 01/23/2020 2:38 PM CDT 01/23/2020 2:48 PM CDT Narrative Organism Antibiotic Method Susceptibility Escherichia coli Amikacin [...] E. coli, K. pneumoniae, and P. mirabilis. Marisa James MD LAB - MICROBIOLOGY O RDERABLES [facility] [address] [place] [address], [facility] [phone] documented in this encounter Visit Diagnoses Diagnosis Supervision of high risk in second trimester (HCC)- Primary Unspecified high-risk Other iron deficiency anemia Chronic hepatitis C without hepatic coma (HCC) Thrombocytopenia affecting (HCC) documented in this encounter Care Teams Lead Welder Relationship Specialty Start Date End Date Alejandro Blevins MD [address] [place] [phone] PCP - General Family Medicine 12/07/19 documented as of this encounter
--- OUTSIDE RECORDS SUMMARY | 2024-07-11 05:38 | XMS_ITS | Encounter Summary ---
Author Organization [facility] Address [address] [facility] [place] [address] Care Team Providers Care Change House Attendant Name Role Phone Alejandro Blevins MD Primary Care Provider [phone] Reason for Visit * Reason Comments Initial Visit * Evaluate & Treat (Routine) - Closed Specialty Diagnoses / Procedures Referred By Scarlet guzman Referred To Contact Maternal Medicine Diagnoses Supervision of other high risk pregnancies, unspecified trimester (HCC) Anemia complicating , unspecified trimester (HCC) Unspecified viral hepatitis C without hepatic coma Procedures FL FULL ROUT OBSTE CARE,VAGINAL Walter George MD [address] [place] [address] [facility] Med [address] [place] [address] Referral ID Status Reason Start Date Expiration Date Visits Re quested Visits Authorized [id number] Closed 12/19/2019 06/16/2020 18 18 Encounter Details Date Type Department Care Team (Latest Contact Info) Description 12/19/2019 11:22 AM CDT - 12/19/2019 11:59 PM CDT Hospital Encounter [facility]ERNAL/ EVALUATION UNIT [address] [place] [address] Ino Soares MD [address] [facility] [address] [place] [address] Discharge Disposition: Home or Self Care Social [...] Sign Reading Time Taken Comments Blood Pressure 123/83 12/19/2019 1:59 PM CDT Pulse 98 12/19/2019 1:59 PM CDT Temperature 36.9 ??C (98.4 ??F) 12/19/2019 1:59 PM CD T Respiratory Rate - - Oxygen Saturation - - Inhaled Oxygen Concentration - - Weight 64.4 kg (142 lb) 12/19/2019 1:59 PM CDT Height - - Body Mass Index 25.16 12/08/2019 6:18 AM CDT documented in this encounter Functional [...] as of this encounter Progress Notes * Ros Colvin RN - 12/19/2019 1:30 PM CDT Patient was given New OB Education packet, which includes: During : Care for yourself. Care for your baby Important Vaccines [address] is Important Resources for Mom's Woman and Resource Guide Safe Connections Crisis helpline Verification of letter Dental Referral letter Dental Clinic's list Centering brochure [place] [facility] Transportation Services Sheet [place] offices FMLA Request Process Handout * Phuong Quinones MD - 12/19/2019 1:30 PM CDT MFM Fellow High-Risk OB Initial Clinic Visit Chief Complaint Patient presents with ??? Initial Visit HPI: Hillary Smalls is a 29 year old , at 20w6d weeks gestation by 19 week ultrasound. No LMP recorded. Patient is . Estimated Date of Delivery: 05/01/20 She is here to establish care for this . She did not know she was prior to her dating ultrasound at 19 weeks gestation. Currently, she generally feels well. She reports movement, denies vaginal bleeding, leakage of fluid, or cramping/contractions. She was admitted last week after high risk transfer for profound anemia and thrombocytopenia discovered at OSH after initially presenting with toe pain. She received 2 units PRBC as well as hematology/oncology consultation. She has followed a skate boarder Dr. Dick Noel and plasterer apprentice Dr. Jain for an unknown hematologic disorder and chronic hepatitis C, respectively. Workup was started during her inpatient admission, and notably returned with elevated anticardiolipin IgM antibody and negative MARQUITA. Her is complicated by: Patient Active Problem List: Anemia Hepatitis C virus infection without hepatic coma Thrombocytopenia affecting Transaminitis Twin Polysubstance abuse Obstetrical history: OB History 3 Para 2 Term 2 0 AB 0 Living 2 SAB TAB Ectopic Multiple Live Births 2 Gynelogical history: STI history: Denies History of abnormal pap smears/cervical procedures: yes, HPV positive, needs repeat pap smear Medical History: Past Medical History: Diagnosis Date ??? History of anemia ??? History of headache ??? Liver disease Hep C Denies history of diabetes, hypertension, asthma, migraines, sickle cell disease, or blood transfusion Surgeries: No past surgical history on file. Allergies: Allergies Allergen Reactions ??? Bee Venom Anaphylaxis ??? Shellfish Allergy Anaphylaxis Curent Medications: Current Outpatient Medications: ??? cyanocobalamin 1000 MCG, Take 1 tablet by mouth once daily, Disp: 30 tablet, Rfl: 2 ??? ferrous sulfate 325 (65 FE) MG tablet, Take 1 tablet by mouth once daily, Disp: 100 tablet, Rfl: 0 ??? folic acid (FOLVITE) 1 MG tablet, Take 1 tablet by mouth once daily, Disp: 30 tablet, Rfl: 2 ??? nitrofurantoin monohyd macro crystals (MACROBID) 100 MG capsule, Take 1 capsule by mouth 2 times daily with morning and evening meal (Patient not taking: Reported on 12/19/2019), Disp: 8 capsule, Rfl: 0 Family History: Family History Problem Relation Name Age of Onset ??? None Known Paternal Grandfather ??? None Known Paternal Grandmother ??? None Known Maternal Grandmother ??? None Known Maternal Grandfather ??? None Known Father ??? None Known Mother ??? None Known Brother ??? None Known Sister ??? None Known Other No history of infants born with defects Social History: Social History Smoking status: Current Some Day Smoker Packs/day: 0.50 Years: 15.00 Types: Cigarettes Start date: 07/2004 Smokeless tobacco: Never Used Alcohol use: Not Current* Drug use: Yes Types: Methamphetamines Comment: weekly Sexual activity: Not on file Physical Exam: Vitals: 12/19/19 1359 BP: 123/83 Pulse: 98 Temp: 98.4 ??F (36.9 ??C) Weight: 142 lb (64.4 kg) General: alert, cooperative, no distress Skin: Normal, no rash or abnormalities Thyroid: normal, no masses or nodules Lungs: clear to auscultation bilaterally Heart: regular rate and rhythm Abdomen: Soft, nontender, gravid Extremities: normal, non-tender bilaterally. Edema absent Pelvis: declined pelvic exam today because needed to leave Lab Review: No results for input(s): PROTEINUA, GLUCOSEUA, KETONEUA in the last 91235 hours. labs reviewed Blood type: A+/unknown/Hepatitis B SAg negative/RPR pending HIV pending Assessment/Plan: 29 year old @ 20w6d Supervision of high risk PNL: GC/CT/Trich/Pap needed at next visit, patient declined today as she had to leave Datin week ultrasound Anatomy: No major malformations, incomplete anatomy Genetics: will need discussion next visit, needed to leave today Needs GCT/CBC/HIV/RPR and Tdap at 28 weeks Needs GBS at 36 weeks Delivery planning: history of 2 prior , however delivery mode to be determined by twin presentation and EFW as progresses Microcytic anemia+thrombocytopenia Profound anemia and thrombocytopenia S/p 2 U PRBC transfusion last week inpatient admission, hgb yesterday 9.1, platelets 51, MCV improved to 72.1 She has followed with a skate boarder Dr. Dick Noel in the past Per pt, she has always had low platelets, but is not sure of the diagnosis. Never remembers having a low Hgb, and has never had a blood transfusion. Denies any bleeding. Gums do bleed when she brushes her teeth. Additionally, has had bone marrow biopsy with skate boarder around 6 years ago, and was told no need to follow up Broad differential, including chronic hepatitis C, severe iron deficiency, nutritional deficiency, drug induced, autoimmune. Rheumatic a possibility with elevated anticardiolipin antibody, though MARQUITA is negative Pt saw new skate boarder yesterday Dr. Alex in [facility]. Plan for weekly venofer transfusions and IM B12 injections, plan for follow up skate boarder visit in 5 weeks after conclusion of serialtransfusions/injections Will plan for rheumatology referral give elevated anticardiolipin antibody Transfuse if platelets <20k or earlier if spontaneously bleeding Considered LD ASA given elevated antibody and twin gestation, however, given profound thrombocytopenia, benefits not thought to outweigh risks of bleeding. Di/Di Twins 12/18 EFW: 364g 33%/389g 53% TwinA/Twin B, normal fluid both twins No major malformations, needs complete anatomy Plan for cervical lengths every 2 weeks, serial growth ultrasounds Delivery by 38 weeks unless indicated sooner Chronic Hep C 2/2 IVDU, with mild transaminitis at OSH 2018 quant was [id number], now [id number] Has followed with plasterer apprentice, Dr. Jain, in the past. 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 Plan for liver and spleen ultrasounds UTI in Urine cult at OSH pos for E coli UTI S/p macrobid treatment Needs ELI, declined ability to void today Methamphetamine use in Used heroin, vicodin, and meth in the past Repeat UDS at last week's admission positive for meth, states last use last week prior to finding out she was , denies any additional use since that time Counseled on options of WISH clinic, patient declines WISH interventions at this time States cannot void today and has to leave, no UDS collected today Tobacco use in Smoker x15 years Counseled on cessation RTC in 4 weeks for MD visit, return to [facility] every 2 weeks for cervical lengths Plan in place for weekly venofer and B12 IM injections with Hematology, and Hematology MD visit in 5 weeks D/w Dr. Alessandra Quinones MD 12/19/2019 2:44 PM Associated attestation - Asuncion Aparicio MD - 12/21/2019 3:11 PM CDT MATERNAL MEDICINE ATTENDING NOTE I saw and evaluated the patient with the fellow. I reviewed history and physical exam at the time of the visit. I agree with diagnosis, assessment, and plan as documented. Asuncion Aparicio MD documented in this encounter Plan of Treatment Not on file documented as of this encounter Procedures Procedure Name Priority Date/Time Associated Diagnosis Comments RPR W REFLEX TO TITER (MONITOR) Routine 12/19/2019 3:22 PM CDT Dichorionic diamniotic twin in second trimester (HCC) HIV-1 HIV-2 ANTIBODY + HIV P24 AG PANEL Routine 12/19/2019 3:22 PM CDT Dichorionic diamniotic twin in second trimester (HCC) documented in this encounter Results * HIV-1 HIV-2 ANTIBODY + HIV P24 AG PANEL (12/19/2019 3:22 PM CDT) HIV1/2 Ab + P24 Ag Non Reactive Non Reactive 12/19/2019 4:25 PM CDT [facility] Blood BLOOD SPECIMEN / Unknown Venipuncture / Unknown 12/19/2019 3:22 PM CDT 12/19/2019 3:40 PM CDT Narrative [facility] - 12/19/2019 4:25 PM CDT No Laboratory evidence of HIV infection. Phuong Quinones MD LAB - CHEMISTRY MIRI GO Performing Organization Address City/[facility]/ZIP Co de Phone Number [facility] [address] [place] [phone] * RPR W REFLEX TO TITER (MONITOR) (12/19/2019 3:22 PM CDT) RPR Monitor Nonreactive Nonreactive 12/20/2019 7:32 AM CDT [facility] Blood BLOOD SPECIMEN / Unknown Venipuncture / Unknown 12/19/2019 3:22 PM CDT 12/19/2019 3:40 PM CDT Phuong Quinones MD LAB - CHEMISTRY MIRI GO Performing Organization Address City/[facility]/ZIP Co de Phone Number [facility] [address] [place] [address] documented in this encounter Visit Diagnoses Diagnosis Dichorionic diamniotic twin in second trimester (HCC)- Primary Twin , antepartum documented in this encounter Care Teams Change House Attendant Relationship Specialty Start Date End Date Alejandro Blevins MD [address] [place] [phone] PCP - General Family Medicine 12/07/19 documented as of this encounter
--- OUTSIDE RECORDS SUMMARY | 2024-07-11 05:38 | XMS_ITS | Encounter Summary ---
Author Organization [facility] Address [address] [place] [address] Care Team Providers Care Policy Change Clerk Name Role Phone Alejandro Blevins MD Primary Care Provider [phone] Reason for Visit * Auth/Cert Specialty Diagnoses / Procedures Referred By Scarlet guzman Referred To Contact Referral ID Status Reason Start Date Expiration Date Visits Re quested Visits Authorized [id number] 1 1 Encounter Details Date Type Department Care Team (Late st Contact Info) Description 04/18/2020 2:48 AM CDT Anesthesia Event [facility] [address] [place], [place] [id number] Chris Solorio MD [address] [place] [address] [phone] Ying Ro APRN-KEVAN [address] [place] [id number] Anesthesia Record Procedure Summary Procedure Name Responsible Anesthesiologist Anesthesia Start Time Anesthesia Stop Time SECTION (EMERGENCY) Chris Solorio MD 04/18/20 0248 04/18/20 0359 Events Date Time Event Comment 04/18/2020 0248 An Start 0248 An Start Data 0249 PT Reassessment 0250 Induction 0251 An Intubation 0251 Timeout Anesthesia part icipated in timeout at the time documented in the record by nursing. 0252 Incision 0253 Uterine Incision 0253 Baby Delivered 0254 Baby Delivered 0309 PACU Orders Reviewed 0340 Extubation 0354 an stop data 0354 Electnc Sig 0354 ANPTO2 0359 An Stop Meds Name Total fentaNYL 100 mcg/2mL injection 200 mcg midazolam 2 mg/2mL injection 2 mg propofol 200mg/20mL injection 150 mg succinylcholine (ANECTINE) 100 mg/5 mL i njection 100 mg phenylephrine 100 mcg/ml solution 2,000 mcg scopolamine (TRANSDERM-SCOP) patch 1 pat ch ondansetron 4 mg/2mL injection 4 mg ceFAZolin 2 g IVPB 2 g azithromycin (ZITHROMAX) 500 mg in 0.9% NaCl IV 505 mL IVPB 500 mg carboprost (HEMABATE) injection 250 mcg methylergonovine (METHERGINE) 0.2 mg/ml injection 0.2 mg oxytocin (PITOCIN) 30 units/500 ml infus ion (60 nitin-units/ml) 1,100 mL lactated ringers infusion 800 mL lactated ringers infusion 800 mL * Agents Name Insp. N2O Exp. Sevoflurane Exp. N2O O2 Insp. Sevoflurane * Blood No blood administrations on file. Lines, Drains, and Airways Type Details Placement Removal Peripheral IV Orientation: Anterio r, Left 04/17/207 by 04/18/20 0849 by Perla Taylor RN Peripheral IV Date: 04/17/20; Time : 2017; Orientation: Anterior, Right; Placed By: Home Jimenez RN; Tolerance: Well 04/17/20 2018 by Emma Purcell RN 04/22/20 0000 by Nazanin Presley RN Urethral Catheter 04/18/20; 0249; Saeid Ramirez RN; 04/19/20; 1523; Per order; [email or web address] 04/18/20 0249 by Emma Purcell RN 04/19/20 1523 by Machelle Jo RN ETT Date: 04/18/20; Time : 250; Placed By: MANISH Allen; Vent: mask not attempted; Induction: Rapid Sequence, Cricoid pressure; Blade Type: Supa; Blade Size: 4; Laryngoscopy View: Grade 1 (full cords); Intubation Adjuncts: Stylet, Cricoid Pressure; Tube: Endotracheal Tube; Placement: Oral; Tube Type: Cuffed-inflated; Tube Size(mm): 7 MM; Depth of Insertion: 21 CM; Measured From: lips; Attempts: 1; Cuff Infated: Air; Cuff Vol(mL): 6 mL; Verified By: Direct visualization, Bilateral breath sounds, Chest Auscultation, CO2 Monitor 04/18/20 0251 by Ying Ro APRN-CRNA 04/18/20 0340 by Ying Ro APRN-CRNA Peripheral IV Date: 04/18/20; Time : 408; Orientation: Left; Placed By: karthikeyan ramirez rn 04/18/20 0409 by Angela Modi RN 04/19/20 1530 by Machelle Jo RN documented in this encounter Social History Tobacco [...] No 04/17/2020 documented as of this encounter Progress Notes * Bay Dobson APRN-CRNA - 04/20/2020 6:38 AM CDT ANESTHESIA POSTOP EVALUATION NOTE Procedure: SECTION (EMERGENCY) Hillary Smalls is a 29 year old female Patient Vitals for the past 6 hrs: BP Temp Resp SpO2 Pain Rating Score #1 Pain Scale/Observation 04/20/20 0045 -- -- -- 97 % -- -- 04/20/20 0100 -- -- -- 96 % -- -- 04/20/20 0115 -- -- -- 95 % -- -- 04/20/20 0130 -- -- -- 98 % -- -- 04/20/20 0145 -- -- -- 98 % -- -- 04/20/20 0215 131/67 98 ??F (36.7 ??C) 20 96 % 10 N 04/20/20 0230 -- -- -- 95 % -- -- 04/20/20 0245 -- -- -- 96 % -- -- 04/20/20 0300 -- -- -- 95 % -- -- 04/20/20 0315 -- -- -- 96 % -- -- 04/20/20 0330 -- -- -- 97 % -- -- 04/20/20 0345 -- -- -- 98 % -- -- 04/20/20 0400 -- -- -- 97 % -- -- 04/20/20 0415 -- -- -- 97 % -- -- 04/20/20 0430 -- -- -- 97 % -- -- 04/20/20 0445 -- -- -- 97 % -- -- 04/20/20 0500 -- -- -- 96 % -- -- 04/20/20 0555 122/77 98.3 ??F (36.8 ??C) 22 97 % 8 N 04/20/20 0600 -- -- -- 97 % -- -- 04/20/20 0615 -- -- -- 97 % -- -- 04/20/20 0630 -- -- -- 96 % -- -- Anesthesia Type: general ETT Pre-op Diagnosis Codes: * Twin delivery by [O30.009] Mental Status: awake, alert, orientated and arousable Neuro Status: No numbess, tingling or visual disturbances Respiratory Function: natural Cardiac Function: stable Postop Pain: adequate Postop Hydration: adequate Postop Nausea: none Assessment: no apparent anesthetic complications, patient tolerated procedure well and no evidence of recall Patient Disposition: Release from Anesthesia Care Non Reportable Improvement Section (otherwise blank): * Ying Ro APRN-FINAL INSPECTOR [employer] - 04/18/2020 3:06 AM CDT ANESTHESIA PREOPERATIVE EVALUATION NOTE Procedure: SECTION (EMERGENCY) Vitals: Patient Vitals for the past 6 hrs: BP Temp Pulse Resp SpO2 Pain Rating Score #1 04/18/20 0220 135/67 -- -- -- -- -- 04/18/20 0217 13567 97.4 ??F (36.3 ??C) 62 20 -- -- 04/18/20 0201 142/91 97.6 ??F (36.4 ??C) 72 20 -- -- 04/18/20 0150 -- -- -- -- -- 04/18/20 0118 -- -- -- -- -- 8 04/18/20 0043 143/81 -- -- -- -- -- 04/18/20 0020 -- -- -- -- -- 04/18/20 0003 108/78 -- -- -- -- -- 04/17/203 144/92 -- -- -- -- -- 04/17/200 -- -- -- -- -- 04/17/20 2308 149/89 -- -- -- -- -- 04/17/203 141/86 -- -- -- -- -- 04/17/208 143/92 -- -- -- -- -- 04/17/202227 135/83 97.7 ??F (36.5 ??C) 81 18 99 % -- 04/17/202222 135/83 -- -- -- -- -- 04/17/208 135/62 -- -- -- -- -- 04/17/202150 135/79 -- -- -- -- -- 04/17/202147 135/79 97.7 ??F (36.5 ??C) 86 18 99 % -- ANESTHESIA PRE-EVALUATION NOTE Physical Exam: Orientation X3 Airway/Mallampati Score: I Mouth Opening Distance: 3 fingerwidths Neck ROM: full TM Distance: > 3 FB Teeth: poor dentition Heart: normal - S1 S2 Lungs: clear to ausculation bilaterally Abdomen Exam: gravid Review of Systems: History of anesthetic complications: No Malignant Hyperthermia: No GERD: No Poor Exercise Tolerance: No Recent Chest Pain: No Shortness of Breath: No AICD/Pacemaker: No Renal Disease: No Diagnostic Tests: Lab(s) reviewed: Yes. ANESTHESIA PLAN ASA Score: 3 NPO Status: No liquids within 2 hours and No solids for 6 hours Anesthesia Plan: general ETT Planned Induction: intravenous, cricoid pressure and rapid sequence Planned Postop Destination: OB Anesthetic plan was discussed with: patient Anesthetic Plan discussion was: Consented Use of blood products were discussed with: patient Use of blood product discussion was: Consented The patient's procedural Anesthetic Plan was discussed with the anesthesiologist. BMI, Height, Weight Tobacco History Estimated body mass index is 29.63 kg/m?? as calculated from the following: Height as of this encounter: 1.575 m (5' 2 ). Weight as of this encounter: 73.5 kg (162 lb). Social History Tobacco Use Smoking Status Current Some Day Smoker ??? Packs/day: 0.50 ??? Years: 15.00 ??? Pack years: 7.50 ??? Types: Cigarettes ??? Start date: 07/2004 Smokeless Tobacco Never Used Alcohol History Drug History Social History Substance and Sexual Activity Alcohol Use Not Currently Social History Substance and Sexual Activity Drug Use Yes ??? Types: Methamphetamines Comment: weekly Outpatient Medications: Inpatient Medications: No outpatient medications have been marked as taking for the 04/17/20 encounter (Hospital Encounter). Current Facility-Administered Medications Medication Dose Last Dose ??? *Hold/Avoid Medication ??? *Hold/Avoid Medication ??? 0.9% NaCl 250 mL ??? 0.9% NaCl 250 mL ??? 0.9% NaCl 250 mL ??? 0.9% NaCl 3 mL And ??? 0.9% NaCl 1-10 mL ??? acetaminophen 650 mg ??? busPIRone 10 mg ??? dexamethasone 40 mg Stopped at 04/17/20 2304 ??? diphenhydrAMINE 25 mg ??? diphenhydrAMINE 25 mg ??? famotidine 20 mg 20 mg at 04/17/20 2315 ??? fentaNYL (PF) 100 mcg ??? HYDROmorphone 0.4 mg ??? hydrOXYzine hcl 25 mg 25 mg at 04/17/20 2315 ??? immune globulin (GAMUNEX-C) 20 g And ??? immune globulin (GAMUNEX-C) 20 g And ??? immune globulin (GAMUNEX-C) 10 g And ??? immune globulin (GAMUNEX-C) 5 g ??? ketorolac 30 mg ??? lactated ringers 1,000 mL at 04/17/20 2109 ??? metoclopramide 10 mg ??? morphine 1 mg ??? naloxone 0.2 mg ??? ondansetron 4 mg ??? oxytocin 125-1,000 nitin-units/min ??? oxytocin 0-20 nitin-units/min 6 nitin-units/min at 04/18/20 0058 ??? terbutaline 0.25 mg ??? tranexamic acid 1,000 mg Facility-Administered Medications Ordered in Other Encounters Medication Dose Last Dose ??? azithromycin (ZITHROMAX) IVPB 500 mg at 04/18/20 0252 ??? ceFAZolin Sodium-Dextrose 2 g at 04/18/20 025 ??? fentaNYL (PF) 100 mcg at 04/18/20 0300 ??? lactated ringers ??? Ondansetron HCl 4 mg at 04/18/20 0255 ??? oxytocin ??? phenylephrine 200 mcg at 04/18/20 0252 ??? propofol 150 mg at 04/18/20 0251 ??? scopolamine 1 patch at 04/18/20 0255 ??? succinylcholine 100 mg at 04/18/20 0251 Allergies: Allergies Allergen Reactions ??? Bee Venom Anaphylaxis ??? Shellfish Allergy Anaphylaxis Relevant Problems No relevant active problems Problem List: Patient Active Problem List Diagnosis Date Noted [...] Prioritized ??? Anemia 12/07/2019 Priority: Not Prioritized Medical History: Past Medical History: Diagnosis Date ??? History of anemia ??? History of headache ??? Liver disease Hep C Surgical History: No past surgical history on file. Lab Results: Recent Labs Component Name 04/18/2052 WBC 16.6* RBC 3.71* HCT 30.7* HGB 10.0* PLTCOUNT 29* MCV 82.7 MCH 27.0 MCHC 32.6 Recent Labs Component Name 04/17/202056 SODIUM 138 POTASSIUM 4.3 CALCIUM 7.8* CHLORIDE 112* CO2 16* GLUCOSE 67* BUN 21* CREATININE 1.07 Recent Labs Component Name 04/17/202056 BLOODUA 3+* WBCUA 6-10* NITRITEUA Negative PROTEINUA 1+* Recent Labs Component Name 04/18/2052 PTT 33.4 PT 13.1 INR 1.0 Invalid input(s): PREGTESTUR Recent Labs Component Name 04/17/202056 ALT 30 AST 40* ALKPHOS 334* ANIONGAP 10 EGFR 60* ALBUMIN 2.7* documented in this encounter Procedure Notes * Ying Ro APRN-FINAL INSPECTOR [employer] - 04/18/2020 3:04 AM CDTAssociated Order(s): ETT Placement Endotracheal Tube Placement: Patient Location: OB. Intubation Event Date/Time: 04/18/2020 2:51 AM Procedure: intubation (69733). Procedure Section: Sedation: under general anesthesia. Indications for Airway Management: anesthesia Procedure pretreatments used? No Induction: rapid sequence and cricoid pressure Patient Position: sniffing Mask Ventilation: not attempted. Blade Type: Supa Blade Size: 4 Laryngoscopy View: grade 1 (full cords) Intubation Adjuncts: cricoid pressure and stylet Tube: endotracheal tube Placement: oral Tube type: cuff - inflated Tube Size (MM): 7 Depth of Insertion (CM): 21 Measured From: lips Cuff volume (mL): 6 Cuff Inflated With: air Number of Attempts: 1. Placement Verified By: direct visualization, bilateral breath sounds, chest auscultation and CO2 monitor Tube secured with: adhesive tape. Dentition unchanged? Yes Difficult Airway? No. Procedure Start Time: 04/18/2020 2:51 AM. Staff Section Anesthesia Provider: Ying Ro APRN-CRNA, Performed the procedure Provider #1: Chris Solorio MD. documented in this encounter Miscellaneous Notes * Anesthesia Transfer of Care - Ying Ro APRN-CRNA - 04/18/2020 3:59 AM CDT ANESTHESIA TRANSFER OF CARE NOTE Today's Date: 04/18/2020 Date of : 1990 Patient: Hillary Smalls Procedure(s): SECTION (EMERGENCY) Surgeon(s): Primary: Marisa James MD Assisting: Mayuri Norton MD Resident - Assisting: Afsaneh Sandoval MD Preop Diagnosis: Pre-op Diagnois: * Twin delivery by [O30.009] Pre-op Meds (From admission, onward) Start Stop Status Route Frequency Ordered 04/18/20 0800 *Hold/Avoid Anticoagulants and Antiplatelet agents -- Dispensed OTHER EVERY 12 HOURS ( and ) 04/18/20 0305 04/18/20 0800 *Hold/Avoid Medication -- Dispensed OTHER EVERY 12 HOURS ( and ) 04/18/20 0305 04/18/20 0406 0.9% NaCl infusion ADS Med Note to Pharmacy: Created by cabinet override 04/18 1614 Dispensed 04/18/20 0406 04/17/202007 0.9% NaCl infusion rate and volume 04/18 2007 Verified IV ONCE PRN 04/17/20200804/17/202131 0.9% NaCl infusion rate and volume 04/18 213 Verified IV ONCE PRN 04/17/20 2133 04/18/20 0139 0.9% NaCl infusion rate and volume 04/19 0138 Verified IV ONCE PRN 04/18/20 0142 04/18/20 0354 0.9% NaCl infusion rate and volume 04/19 0353 Verified IV ONCE PRN 04/18/20 0354 04/17/202007 0.9% NaCl injection 1-10 mL -- Dispensed IK PRN 04/17/20200804/17/202199 0.9% NaCl injection 3 mL -- Dispensed IK EVERY 8 HOURS 04/17/20200804/17/202115 acetaminophen (TYLENOL) tablet 650 mg -- Verified PO EVERY 6 HOURS PRN 04/17/20211804/17/202344 busPIRone (BUSPAR) tablet 10 mg -- Dispensed PO 3 TIMES DAILY 04/17/20230004/17/202329 xdhescamis-reoyfvzibyivq-hpazdbht (FIORICET) 50-325-40 MG tablet 1 tablet 04/17 2315 Completed PO ONCE 04/17/20230504/17/202144 dexamethasone (DECADRON) 40 mg in 0.9% NaCl IV 60 mL IVPB -- Dispensed IV DAILY 04/17/20213804/17/202329 diphenhydrAMINE (BENADRYL) capsule 25 mg 04/18 1129 Verified PO ONCE 04/17/20229904/18/20 030 diphenhydrAMINE (BENADRYL) injection 25 mg -- Verified IV EVERY 6 HOURS PRN 04/18/2030404/17/20 231 famotidine (PEPCID) injection 20 mg -- Dispensed IV 2 TIMES DAILY 04/17/20 22404/18/20 0045 fentaNYL (PF) (SUBLIMAZE) injection 100 mcg 04/18 0023 Completed IV ONCE 04/18/20 0018 04/18/20 0230 fentaNYL (PF) (SUBLIMAZE) injection 100 mcg 04/18 1429 Verified IV ONCE 04/18/20 0215 04/18/20 0212 fentaNYL (SUBLIMAZE) injection 0.05 mg/mL ADS Med Note to Pharmacy: Created by cabinet override 04/18 0214 Completed 04/18/2021104/18/20 0305 HYDROmorphone (DILAUDID) injection 0.4 mg -- Dispensed IV EVERY 4 HOURS PRN 04/18/20 03004/17/202305 hydrOXYzine hcl (ATARAX) tablet 25 mg -- Dispensed PO EVERY 6 HOURS PRN 04/17/20 2306 04/18/20 0230 immune globulin (GAMUNEX-C) 10 % 10 g 04/19 0859 Dispensed IV DAILY 04/18/20 0208 04/18/20 0230 immune globulin (GAMUNEX-C) 10 % 20 g 04/19 0859 Dispensed IV DAILY 04/18/20 0208 04/18/20 0230 immune globulin (GAMUNEX-C) 10 % 20 g 04/19 0859 Dispensed IV DAILY 04/18/20 0208 04/18/20 0230 immune globulin (GAMUNEX-C) 10 % 5 g 04/19 0859 Dispensed IV DAILY 04/18/20 0208 04/18/20 0600 ketorolac (TORADOL) injection 30 mg 04/19 0559 Verified IV EVERY 6 HOURS 04/18/20 0305 04/17/20 220 lactated ringers infusion -- Dispensed IV CONTINUOUS 04/17/20211804/17/20 233 metoclopramide (REGLAN) injection 10 mg 04/18 1129 Verified IV ONCE 04/17/20 23004/18/20 0305 morphine injection 1 mg 04/18 0304 Verified IV EVERY 1 HOUR PRN 04/18/20 0305 04/18/20 0305 naloxone (NARCAN) injection 0.2 mg -- Verified IV PRN 04/18/20 0305 04/18/20 0305 ondansetron (ZOFRAN) injection 4 mg -- Verified IV EVERY 4 HOURS PRN 04/18/20 0305 04/17/202115 oxytocin (PITOCIN) 30 units in 500 mL 0.9% sodium chloride infusion 04/17 2115 Verified IV CONTINUOUS PRN 04/17/20211804/17/202199 oxytocin (PITOCIN) 30 units in 500 mL 0.9% sodium chloride infusion -- Dispensed IV CONTINUOUS 04/17/20212004/17/202115 terbutaline (BRETHINE) injection 0.25 mg -- Dispensed IV PRN 04/17/20211804/17/202115 tranexamic acid (CYKLOKAPRON) injection 1,000 mg -- Verified IV ONCE PRN 04/17/202118 Post-op Diagnosis: * Twin delivery by [O30.009] . Allergies Allergen Reactions ??? Bee Venom Anaphylaxis ??? Shellfish Allergy Anaphylaxis Vitals: Patient Vitals for the past 3 hrs: BP Temp Pulse Resp Pain Rating Score #1 04/18/20 0409 112/59 -- -- -- -- 04/18/20 0406 111/54 -- -- -- -- 04/18/20 0220 135/67 -- -- -- -- 04/18/20 0217 135/67 97.4 ??F (36.3 ??C) 62 20 -- 04/18/20 0201 142/91 97.6 ??F (36.4 ??C) 72 20 -- 04/18/20 0150 -- -- -- -- 10 Lines, Drains, and Airways Type Details Placement Removal Peripheral IV Date: 04/17/20; Time: 2017; Orientation: Anterior, Right; Location: Forearm; Placed By: Home Jimenez RN; Gauge: 18 Gauge; Tolerance: Well 04/17/202017 by Emma Purcell RN Peripheral IV Orientation: Anterior, Left; Location: Forearm; Gauge: 20 Gauge 04/17/202126 ETT Date: 04/18/20; Time: 250; Placed By: MANISH Allen; Vent: mask not attempted; Induction: Rapid Sequence, Cricoid pressure; Blade Type: Supa; Blade Size: 4; Laryngoscopy View:Grade 1 (full cords); Intubation Adjuncts: Stylet, Cricoid Pressure; Tube: Endotracheal Tube; Placement: Oral; Tube Type: Cuffed-inflated; Tube Size(mm): 7 MM; Depth of Insertion: 21 CM; Measured From: lips; Attempts: 1; Cuff Infated: Air; Cuff Vol(mL): 6 mL; Verified By: Direct visualization, Bilateral breath sounds, Chest Auscultation, CO2 Monitor 04/18/20 025 by Ying Ro APRN-CRNA 04/18/20 034 by Ying Ro APRN-CRNA Peripheral IV Date: 04/18/20; Time: 408; Orientation: Left; Location: Antecubital; Placed By: e ramirez rn; Gauge: 18 Gauge 04/18/20 0409 by Angela Modi RN Intraprocedure I/O Totals Urine Output Urine 200 mL Anesthesia Other Output Platelets volume transfused 235 ml oxytocin (PITOCIN) 30 units/500 ml infusion (60 nitin-units/ml) Volume 1100 mL lactated ringers infusion Volume infused 1600 ml Patient Transfer Location: Obstetrics Transport Airway: spontaneous respirations and supplemental O2 Complications: None Handoff Given? Yes Checklist or Protocol - The cardenas handoff elements that must be included in the transfer of care checklist include: 1. Identification of patient. 2. Identification of responsible practitioner (PACU nurse or advanced practitioner). 3. Discussion of pertinent medical history. 4. Discussion of the surgical/procedure course (procedure, reason for surgery, procedure performed). 5. Intraoperative anesthetic management and issue/concerns. 6. Expectations/Plans for the early post-procedure period. 7. Opportunity for questions and acknowledgement of understanding of report from the receiving PACUteam. MANISH Allen documented in this encounter Plan of Treatment Not on file documented as of this encounter Procedures Procedure Name Priority Date/Time Associated Diagnosis Comments ENDOTRACHEAL TUBE NOTE Routine 04/18/2020 3:04 AM CDT documented in this encounter Results * ETT LINE PERFORMABLE (04/18/2020 3:04 AM CDT) Narrative Ying Ro APRN-CRNA - 04/18/2020 3:04 AM CDT Ying Ro APRN-CRNA ? 04/18/2020 ??3:04 AM Endotracheal Tube Placement: ? Patient Location: OB. Intubation Event Date/Time: ??04/18/2020 2:51 AM Procedure: intubation (76289). Procedure Section: ?? Sedation: under general anesthesia. [...] AM. Staff Section ?? Anesthesia Provider: Ying Ro, PLATFORM POWER TECHNICIAN-FINAL INSPECTOR [employer], Performed the procedure Provider #1: Chris Solorio MD. Chris Solorio MD GENERAL ANESTHESIA ORDERABLES documented in this encounter Visit Diagnoses Not on filedocumented in this encounter Administered Medications Inactive Administered Medications - up to 3 most recent administrations Medication Order MAR Action Action Date Dose Rate Site azithromycin (ZITHROMAX) 500 mg in 0.9% NaCl IV 505 mL IVPB CONTINUOUS PRN, Starting on Tue04/18/20 at 0252, Until Tue04/18/20 at 420, Anesthesia Intra-op $ New Bag/Syringe 04/18/2020 2:52 AM CDT 500 mg carboprost (HEMABATE) injection PRN, Starting on Tue04/18/20 at 0350, Until Tue04/18/20 at 420, Anesthesia Intra-op $ Given 04/18/2020 3:50 AM CDT 250 mcg ceFAZolin (ANCEF) 2,000 mg in 50 ml IVPB PRN, Starting on Tue04/18/20 at 0252, Until Tue04/18/20 at 420, Anesthesia Intra-op $ Given 04/18/2020 2:52 AM CDT 2 g fentaNYL (PF) (SUBLIMAZE) injection PRN, Starting on Tue04/18/20 at 0300, Until Tue04/18/20 at 042, Anesthesia Intra-op $ Given 04/18/2020 3:29 AM CDT 100 mcg $ Given 04/18/2020 3:00 AM CDT 100 mcg lactated ringers infusion CONTINUOUS PRN, Starting on Tue04/18/20 at 0248, Until Tue04/18/20 at 042, Anesthesia Intra-op $ New Bag/Syringe 04/18/2020 2:48 AM CDT lactated ringers infusion CONTINUOUS PRN, Starting on Tue04/18/20 at 0249, Until Tue04/18/20 at 042, Anesthesia Intra-op $ New Bag/Syringe 04/18/2020 2:49 AM CDT methylergonovine (METHERGINE) injection PRN, Starting on Tue04/18/20 at 0350, Until Tue04/18/20 at 042, Anesthesia Intra-op $ Given 04/18/2020 3:50 AM CDT 0.2 mg midazolam (VERSED) injection PRN, Starting on Tue04/18/20 at 0309, Until Tue04/18/20 at 042, Anesthesia Intra-op $ Given 04/18/2020 3:09 AM CDT 2 mg Ondansetron HCl (ZOFRAN) injection PRN, Starting on Tue04/18/20 at 0255, Until Tue04/18/20 at 420, Anesthesia Intra-op $ Given 04/18/2020 2:55 AM CDT 4 mg oxytocin (PITOCIN) 30 units in 500 mL (anesthesia fixed dose) CONTINUOUS PRN, Starting on Tue04/18/20 at 0255, Until Tue04/18/20 at 420, Anesthesia Intra-op $ New Bag/Syringe 04/18/2020 3:35 AM CDT $ New Bag/Syringe 04/18/2020 3:00 AM CDT $ New Bag/Syringe 04/18/2020 2:55 AM CDT phenylephrine 100 mcg/mL injection Intravenous, PRN, Starting on Tue04/18/20 at 0252, Until Tue04/18/20 at 042, Anesthesia Intra-op $ Given 04/18/2020 3:36 AM CDT 200 mcg $ Given 04/18/2020 3:31 AM CDT 200 mcg $ Given 04/18/2020 3:29 AM CDT 200 mcg propofol (DIPRIVAN) injection PRN, Starting on Tue04/18/20 at 0251, Until Tue04/18/20 at 420, Anesthesia Intra-op $ Given 04/18/2020 2:51 AM CDT 150 mg scopolamine (TRANSDERM-SCOP) Administer over 72 Hours, PRN, Starting on Tue04/18/20 at 0255, Until Tue04/18/20 at 042 $ Given 04/18/2020 2:55 AM CDT 1 patch succinylcholine (ANECTINE) injection PRN, Starting on Tue04/18/20 at 0251, Until Tue04/18/20 at 0421, Anesthesia Intra-op $ Given 04/18/2020 2:51 AM CDT 100 mg documented in this encounter Care Teams Policy Change Clerk Relationship Specialty Start Date End Date Alejandro Blevins MD [address] [place] [address] PCP - General Family Medicine 12/07/19 documented as of this encounter
--- OUTSIDE RECORDS SUMMARY | 2024-07-11 05:38 | XMS_ITS | Encounter Summary ---
Author Organization [facility] Address [address] [place] [address] Care Team Providers Care Senior Teradata Developer Name Role Phone Alejandro Blevins MD Primary Care Provider [phone] Reason for Visit * Reason Comments Ultrasound Encounter Details Date Type Department Care Team (Latest Contact Info) Description 12/19/2019 11:15 AM CDT - 12/19/2019 11:21 AM CDT Hospital Encounter [facility] EVALUATION UNIT [address] [facility]. [address] [place] [address] Ino Soares MD [address] [facility] [address] [place] [address] Discharge Disposition: Home or Self Care Social [...] 12/09/2019 01/24/2020 documented as of this encounter Plan of Treatment Not on file documented as of this encounter Procedures Procedure Name Priority Date/Time Associated Diagnosis Comments SONOGRAM - COMPLETE Routine 12/19/2019 1 1:45 AM CDT documented in this encounter Results * SONOGRAM - COMPLETE (12/19/2019 11:45 AM CDT) Anatomical Region Laterality Modality Other 12/19/2019 11:4 5 AM CDT Narrative 12/19/2019 4:25 PM CDT ? [facility] ? [facility] ?PHONE: ??FAX: FETUS A Pat. Name: ?HILLARY DO. No: ?[id number] Study Date: ?? 12/19/2019 ??11:45am , Age: ? 1990, 29 Pregnancies: ?? 4, Para 2, Ab 1 Height: ? 63 in Weight: ? 117 lb LMP: ?Unknown GA by US: ? 20w4d ?? FABIAN: 05/03/2020 GA Selected: ??20w6d (Outside Scan) FABIAN: ?05/01/2020 Referring MD: Edgard, , [facility] Stewarding Supervisor: ??Cintia Messina, VISHNU, RVT CPT4: ? 01084,[id number] BMI: ?20.72 Hist/Ind: ? DC/DA Twins ? Anatomy Screen ?Tobacco Use ?Marijuana/Methamphetamine ?use in early MEASUREMENTS & AGE ? GROWTH EVALUATION Measurement ??GA ? Range ? Srce %for GA Ratios ----- ---- ------- BPD ??4.8 cm 20w3d (38l3q-92g1r) Hadl BPD 30% FL/BPD 0.71 HC ??18.5 cm 20w6d (00s5s-23v4v) Hadl HC ??42% FL/AC ??0.22 AC ??15.3 cm 20w4d (59s4w-95m5q) Hadl AC ??32% HC/AC ??1.21 (1.06 - 1.24) FL ?? 3.4 cm 20w5d (02h3e-17d1x) Hadl FL ??35% CI ? 0.72 (0.70 - 0.86) HL ?? 3.3 cm 21w1d (76c8e-21q3o) Dontae HL ??55% Cere 2.1 cm 19w5d (96z5q-42x9o) Hill Cere23% GA for sonogram 20w4d (53s9n-49j1l) ?? Weight Estimate: based on (BPD,HC,AC,FL) Avg ?Weight: 364 gm (311-417gm) Hadloc ? : 0lbs, 12oz ? Normal: 386 gm (290-483gm) Hadloc ? Wt% ? 33% for 20w6d Cervix: ??Length: 4.69 cm Heart Rate: 156 bpm Amniotic Fluid Index: 04.1cm (Deepest Pocket) EVAL, PLACENTA Presentation: cephalic MaternalSide: left Umbilical Cord: 3 Vessels Placenta: posterior Membrane: dichorionic/diamniotic Heart Rate: 156 bpm Amniotic Fluid Volume: normal Anatomy!Normal!Abnormal!Suboptimal!Prev. Seen!Comments Cranium ?! ?? x ??! ?! ?! ?! Mdl (CSP/Thal! ?? x ??! ?! ?! ?! Ventricles ?? ! ?? x ??! ?! ?! ?! Choroid Plexu! ?? x ??! ?! ?! ?! Cerebellum ?? ! ?? x ??! ?! ?! ?! Cisterna M. ??! ?? x ??! ?! ?! ?! Nuchal Fold ??! ?? x ??! ?! ?! ?! Profile ?! ?! ?! ? x ?! ?! Nasal Bone ?? ! ?! ?! ? x ?! ?! Lip ?! ?! ?! ? x ?! ?! Spine ?! ?? x ??! ?! ?! ?! Lungs ?! ?! ?! ? x ?! ?! 4 Chamber Hea! ?! ?! ? x ?! ?! LVOT ? ! ?! ?! ? x ?! ?! RVOT ? ! ?! ?! ? x ?! ?! 3 Vessel View! ?? x ??! ?! ?! ?! Cross-over ?? ! ?! ?! ? x ?! ?! Ductal Arch ??! ?? x ??! ?! ?! ?! Aortic Arch ??! ?? x ??! ?! ?! ?! Caval View ?? ! ?? x ??! ?! ?! ?! Situs ?! ?? x ??! ?! ?! ?! Diaphragm ?! ?? x ??! ?! ?! ?! Stomach ?! ?? x ??! ?! ?! ?! Bowel ?! ?? x ??! ?! ?! ?! Kidneys ?! ?? x ??! ?! ?! ?! Bladder ?! ?? x ??! ?! ?! ?! 3 Vessel Cord! ?? x ??! ?! ?! ?! Cord In! ?? x ??! ?! ?! ?! Upper Extremi! ?? x ??! ?! ?! ?! Hands ?! ?! ?! ? x ?! ?! Lower Extreme! ?? x ??! ?! ?! ?! Feet ? ! ?! ?! ? x ?! ?! External Mecca! ?! ?! ?! ?!Female Placental Cor! ?? x ??! ?! ?! ?! CLINICAL SUMMARY Study Number: 1 ?? A diamniotic dichorionic twin intrauterine is seen. ??The measurements today are consistent with concordant and appropriate sizes. ??A twin peak is seen, as well as a dividing membrane. The FABIAN selected is based on a prior ultrasound. ??The DVP appears normal for twin A, and normal for twin B. The anatomy was limited due to position for twin A and limited due to position for twin B. No major malformations were seen within the limitations of ultrasound, although some portions of the anatomy surveys could not be completed today. The posterior placenta is low-lying (1.0 cm from the internal os). IMPRESSION: Diamniotic Dichorionic Twins, live, intrauterine at 20w6d size is Normal for twin A and normal twin B Amniotic fluid volume: Normal for twin A, normal for twin B Reassuring transvaginal cervical length Incomplete anatomy surveys, no major malformations detected today Low-lying placenta RECOMMEND: Ultrasound in 4 weeks to complete the anatomy surveys and to assess growth and placental location. Thank you for allowing us the opportunity to care for your patient. ?? Machelle Costello MD <Electronic Signature> ??12/19/2019 04:23pm FETUS B Pat. Name: ?HILLARY DO. No: ?[id number] Study Date: ?? 12/19/2019 ??11:45am , Age: ? 1990, 29 Pregnancies: ?? 4, Para 2, Ab 1 Height: ? 63 in Weight: ? 117 lb LMP: ?Unknown GA by US: ? 20w5d ?? FABIAN: 05/02/2020 GA Selected: ??20w6d (Outside Scan) FAIBAN: ?05/01/2020 Referring MD: Edgard, , [facility] Stewarding Supervisor: ??Cintia Messina RDMS, RVT CPT4: ? 28487,[id number] Hist/Ind: ? DC/DA Twins ? Anatomy Screen ?Tobacco Use ?Marijuana/Methamphetamine ?use in early MEASUREMENTS & AGE ? GROWTH EVALUATION Measurement ??GA ? Range ? Srce %for GA Ratios ----- ---- ------- BPD ??4.7 cm 20w2d (89i8i-86p0l) Hadl BPD 27% FL/BPD 0.70 HC ??17.9 cm 20w2d (74q0x-56t7a) Hadl HC ??20% FL/AC ??0.20 AC ??16.6 cm 21w4d (26w5f-08b1j) Hadl AC ??70% HC/AC ??1.08 (1.06 - 1.24) FL ?? 3.3 cm 20w2d (29h7z-07j6t) Hadl FL ??26% CI ? 0.75 (0.70 - 0.86) HL ?? 3.2 cm 20w5d (58b3y-31j1m) Dontae HL ??48% Cere 2.1 cm 19w5d (04z8i-89v3e) Hill Cere23% GA for sonogram 20w5d (47v6e-24p9j) ?? Weight Estimate: based on (BPD,HC,AC,FL) Avg ?Weight: 389 gm (332-446gm) Hadloc ? : 0lbs, 13oz ? Normal: 386 gm (290-483gm) Hadloc ? Wt% ? 53% for 20w6d Cervix: ??Length: 4.69 cm Heart Rate: 157 bpm Amniotic Fluid Index: 04.4cm (Deepest Pocket) EVAL, PLACENTA Presentation: cephalic MaternalSide: right Umbilical Cord: 3 Vessels Placenta: anterior Heart Rate: 157 bpm Amniotic Fluid Volume: normal Anatomy!Normal!Abnormal!Suboptimal!Prev. Seen!Comments Cranium ?! ?? x ??! ?! ?! ?! Mdl (CSP/Thal! ?? x ??! ?! ?! ?! Ventricles ?? ! ?? x ??! ?! ?! ?! Choroid Plexu! ?? x ??! ?! ?! ?! Cerebellum ?? ! ?? x ??! ?! ?! ?! Cisterna M. ??! ?? x ??! ?! ?! ?! Nuchal Fold ??! ?? x ??! ?! ?! ?! Profile ?! ?! ?! ? x ?! ?! Nasal Bone ?? ! ?! ?! ? x ?! ?! Lip ?! ?! ?! ? x ?! ?! Spine ?! ?? x ??! ?! ?! ?! Lungs ?! ?! ?! ? x ?! ?! 4 Chamber Hea! ?! ?! ? x ?! ?! LVOT ? ! ?! ?! ? x ?! ?! RVOT ? ! ?! ?! ? x ?! ?! 3 Vessel View! ?? x ??! ?! ?! ?! Cross-over ?? ! ?! ?! ? x ?! ?! Ductal Arch ??! ?? x ??! ?! ?! ?! Aortic Arch ??! ?? x ??! ?! ?! ?! Caval View ?? ! ?? x ??! ?! ?! ?! Situs ?! ?? x ??! ?! ?! ?! Diaphragm ?! ?? x ??! ?! ?! ?! Stomach ?! ?? x ??! ?! ?! ?! Bowel ?! ?? x ??! ?! ?! ?! Kidneys ?! ?? x ??! ?! ?! ?! Bladder ?! ?? x ??! ?! ?! ?! 3 Vessel Cord! ?? x ??! ?! ?! ?! Cord In! ?? x ??! ?! ?! ?! Upper Extremi! ?? x ??! ?! ?! ?! Hands ?! ?! ?! ? x ?! ?! Lower Extreme! ?? x ??! ?! ?! ?! Feet ? ! ?! ?! ? x ?! ?! External Mecca! ?! ?! ?! ?!Female Placental Cor! ?? x ??! ?! ?! ?! Anatomy!Normal!Abnormal!Suboptimal!Prev. Seen!Comments Cranium ?! ?? x ??! ?! ?! ?! Mdl (CSP/Thal! ?? x ??! ?! ?! ?! Ventricles ?? ! ?? x ??! ?! ?! ?! Choroid Plexu! ?? x ??! ?! ?! ?! Cerebellum ?? ! ?? x ??! ?! ?! ?! Cisterna M. ??! ?? x ??! ?! ?! ?! Nuchal Fold ??! ?? x ??! ?! ?! ?! Profile ?! ?? x ??! ?! ?! ?! Nasal Bone ?? ! ?? x ??! ?! ?! ?! Lip ?! ?? x ??! ?! ?! ?! Spine ?! ?? x ??! ?! ?! ?! Lungs ?! ?? x ??! ?! ?! ?! 4 Chamber Hea! ?? x ??! ?! ?! ?! LVOT ? ! ?? x ??! ?! ?! ?! RVOT ? ! ?! ?! ? x ?! ?! 3 Vessel View! ?? x ??! ?! ?! ?! Cross-over ?? ! ?! ?! ? x ?! ?! Ductal Arch ??! ?! ?! ? x ?! ?! Aortic Arch ??! ?! ?! ? x ?! ?! Caval View ?? ! ?? x ??! ?! ?! ?! Situs ?! ?? x ??! ?! ?! ?! Diaphragm ?! ?? x ??! ?! ?! ?! Stomach ?! ?? x ??! ?! ?! ?! Bowel ?! ?? x ??! ?! ?! ?! Kidneys ?! ?? x ??! ?! ?! ?! Bladder ?! ?? x ??! ?! ?! ?! 3 Vessel Cord! ?? x ??! ?! ?! ?! Cord In! ?? x ??! ?! ?! ?! Upper Extremi! ?? x ??! ?! ?! ?! Hands ?! ?! ?! ? x ?! ?!unremarkable ?left, suboptimal ?right Lower Extreme! ?? x ??! ?! ?! ?! Feet ? ! ?? x ??! ?! ?! ?! External Mecca! ?! ?! ?! ?!Male Placental Cor! ?? x ??! ?! ?! ?! CLINICAL SUMMARY Machelle Costello MD <Electronic Signature> ??12/19/2019 04:23pm Walter Mota MD MFM ORDERABLES documented in this encounter Visit Diagnoses Not on filedocumented in this encounter Care Teams Senior Teradata Developer Relationship Specialty Start Date End Date Alejandro Blevins MD [facility] [place] [address] PCP - General Family Medicine 12/07/19 documented as of this encounter
--- OUTSIDE RECORDS SUMMARY | 2024-07-11 05:38 | XMS_ITS | Encounter Summary ---
Author Organization [facility] Address [address] [facility] [place] [address] Care Team Providers Care Newspaper Inserter Name Role Phone Alejandro Blevins MD Primary Care Provider [phone] Encounter Details Date Type Department Care Team (Late st Contact Info) Description 02/05/2020 Orders Only [facility] PHYS OB [address] [place] [address] Ruben Sorto MD [address] [place] [address] Social History Tobacco Use Types Packs/Day Years [...] No 12/07/2019 documented as of this encounter Progress Notes * Ruben Sorto MD - 02/05/2020 6:41 PM CDT Patient called reporting she had not received Rx for UTI. Urine culture showed E.coli suspectible to Macrobid. No Rx in chart. Will order Macrobid at this time. Ruben Sorto MD documented in this encounter Plan of Treatment Not on file documented as of this encounter Visit Diagnoses Not on filedocumented in this encounter Care Teams Newspaper Inserter Relationship Specialty Start Date End Date Alejandro Blevins MD [address] [place] [phone] PCP - General Family Medicine 12/07/19 documented as of this encounter
--- OUTSIDE RECORDS SUMMARY | 2024-07-11 05:38 | XMS_ITS | Encounter Summary ---
Author Organization [facility] Address [address] [facility] [place] [address] Care Team Providers Care Apple Picking Supervisor Name Role Phone Alejandro Blevins MD Primary Care Provider [phone] Reason for Visit * Reason Onset Date Comments Concerns 04/17/2020 Encounter Details Date Type Department Care Team (Late st Contact Info) Description 04/17/2020 Telephone [facility] MATERNAL/ EVALUATION UNIT [address] [place] [address]. [address] [place] [address] Genevieve Spears RN Concerns Social History Tobacco Use Types Packs/Day Years [...] encounter Miscellaneous Notes * Telephone Encounter - Genevieve Spears, RN - 04/17/2020 3:23 PM CDT Ara, patient's mother is calling. The patient is 38 weeks with twins. She is having vaginal bleeding ( a lot, with clots ). She is in the ER in [place] currently being seen, mother was not able to go back with her. Explained the team in [place] will need to initiate the transfer process if that is what is needed. She voiced understanding and thanks. Called [facility], spoke with Marilu who is transport nurse for the day, she reiterated this is the process,they will await call from [place]. documented in this encounter Plan of Treatment Not on file documented as of this encounter Visit Diagnoses Not on filedocumented in this encounter Care Teams Apple Picking Supervisor Relationship Specialty Start Date End Date Alejandro Blevins MD [address] [place] [address] PCP - General Family Medicine 12/07/19 documented as of this encounter
--- OUTSIDE RECORDS SUMMARY | 2024-07-11 05:38 | XMS_ITS | Encounter Summary ---
Author Organization [facility] Address [address] [address] Care Team Providers Care Sales Forecast Analyst Name Role Phone Alejandro Blevins MD Primary Care Provider [phone] Reason for Visit * Reason Onset Date Comments Results 01/24/2020 Encounter Details Date Type Department Care Team (Late st Contact Info) Description 01/24/2020 Telephone [facility] MATERNAL/ EVALUATION UNIT [address] [facility] [address] [place] [address] Helen Haq MD [address] [place] [address] Results Social History Tobacco Use Types Packs/Day [...] encounter Miscellaneous Notes * Telephone Encounter - Helen Haq MD - 01/24/2020 3:19 PM CDT Left message for patient to call back. Needed to inform of E.Coli UTI and prescription for macrobid. Helen Haq MD 01/24/2020 3:25 PM documented in this encounter Plan of Treatment Not on file documented as of this encounter Visit Diagnoses Not on filedocumented in this encounter Care Teams Sales Forecast Analyst Relationship Specialty Start Date End Date Alejandro Blevins MD [address] [place] [phone] PCP - General Family Medicine 12/07/19 documented as of this encounter
--- OUTSIDE RECORDS SUMMARY | 2024-07-11 05:38 | XMS_ITS | Encounter Summary ---
Author Organization [facility] Address [address] [place] [address] Care Team Providers Care Manufacturing Plant Technician Name Role Phone Alejandro Blevins MD Primary Care Provider [phone] Reason for Visit * Reason Onset Date Comments MEDICATION REFILL 02/05/2020 Encounter Details Date Type Department Care Team (Late st Contact Info) Description 02/05/2020 Telephone [facility] PHYS OB [address] [place], [place] [id number] Ruben Sorto MD [address] [place], [place] [phone] MEDICATION REFILL Social History Tobacco Use Types Packs/Day Years [...] on filedocumented in this encounter Care Teams Manufacturing Plant Technician Relationship Specialty Start Date End Date Alejandro Blevins MD [address] [place] [address] PCP - General Family Medicine 12/07/19 documented as of this encounter
--- OUTSIDE RECORDS SUMMARY | 2024-07-11 05:39 | XMS_ITS | Encounter Summary ---
Author Organization [facility] Address [address] [place] [address]. [place], [place] [address] [place] [address] Care Team Providers Care Black Puller Name Role Phone Alejandro Blevins MD Primary Care Provider [phone] Encounter Details Date Type Department Care Team (Latest Contact Info) Description 09/07/2023 Travel Social History Tobacco Use Types Packs/Day Years Used Date Smoking Tobacco: Every Day Cigarettes Smokeless Tobacco: Never Alcohol Use Standard Drinks/Week Comments Not Currently 0 (1 standard drink = 0.6 oz pur e alcohol) Comments No Sex and Gender Information Value Date Recorded Sex Assigned at Not on file Legal Sex Female 11:30 PM HOUSE CARPENTER Gender Identity Female 11/10/2021 3:09 PM CDT Sexual Orientation Straight 11/10/2021 3: 09 PM CDT documented as of this encounter Functional Status * RETIRED Are you deaf or do you have serious difficulty hearing Answer Date of Assessment Author Status No 07/30/2020 10:48 PM HOUSE CARPENTER Acti ve * RETIRED Are you blind or do you have serious difficulty seeing, even when wearing glasses? Answer Date of Assessment Author Status No 07/30/2020 10:46 PM HOUSE CARPENTER Acti ve * Do you have serious difficulty walking or climbing stairs? Answer Date of Assessment Author Status No 07/30/2020 10:46 PM HOUSE CARPENTER Nella Le RN Active * Do you have difficulty dressing or bathing? Answer Date of Assessment Author Status No 07/30/2020 10:46 PM HOUSE CARPENTER Nella Le RN Active * Because of a physical, mental, or emotional condition, do you have difficulty doing errands alone such as visiting a doctor's office or shopping? Answer Date of Assessment Author Status No 07/30/2020 10:46 PM HOUSE CARPENTER Nella Le RN Active documented as of this encounter Mental Status * Because of a physical, mental, or emotional condition, do you have serious difficulty concentrating, remembering, or making decisions? Answer Entry Date Author Status No 07/30/2020 10:46 PM HOUSE CARPENTER Nella Le RN Active documented in this encounter Plan of Treatment Upcoming Encounters Date Type Department Care Team (Late st Contact Info) Description 09/25/2024 11:30 AM HOUSE CARPENTER Appointment [facility] [address] [place] [address] Roberta Alex MD [address] [place] [address] 09/25/2024 11:40 AM HOUSE CARPENTER Office Visit [facility] [address] [place] [address] Roberta Alex MD [address] [place] [address] documented as of this encounter Visit Diagnoses Not on filedocumented in this encounter Additional Health Concerns Infection Onset Date Last Indicated Resolved Time MRSA 06/05/2021 06/05/2021 documented as of this encounter Care Teams Black Puller Relationship Specialty Start Date End Date Alejandro Blevins MD PCP - General FAMILY PRACTICE 12/10/19 documented as of this encounter
--- OUTSIDE RECORDS SUMMARY | 2024-07-11 05:39 | XMS_ITS | Encounter Summary ---
Author Organization [facility] Address [facility] [facility] [place] [address] [place] [address] Care Team Providers Care Turning Lathe Tender Name Role Phone Alejandro Blevins MD Primary Care Provider [phone] Encounter Details Date Type Department Care Team (Latest Contact Info) Description 10/18/2023 12:04 PM CDT - 10/18/2023 11:59 PM CDT Hospital Encounter [address] [place] [address] Roberta Alex MD [address] [place] [address] Discharge Disposition: Home or Self Care (Routine Discharge) Social History Tobacco Use Types Packs/Day Years Used Date Smoking Tobacco: Every Day Cigarettes Smokeless Tobacco: Never Alcohol Use Standard Drinks/Week Comments Not Currently 0 (1 standard drink = 0.6 oz pur e alcohol) Comments No Sex and Gender Information Value Date Recorded Sex Assigned at Not on file Legal Sex Female 11:30 PM MACHINE OVERHAULER Gender Identity Female 11/10/2021 3:09 PM CDT Sexual Orientation Straight 11/10/2021 3: 09 PM CDT documented as of this encounter Functional Status * RETIRED Are you deaf or do you have serious difficulty hearing Answer Date of Assessment Author Status No 07/30/2020 10:48 PM MACHINE OVERHAULER Acti ve * RETIRED Are you blind or do you have serious difficulty seeing, even when wearing glasses? Answer Date of Assessment Author Status No 07/30/2020 10:46 PM MACHINE OVERHAULER Acti ve * Do you have serious difficulty walking or climbing stairs? Answer Date of Assessment Author Status No 07/30/2020 10:46 PM Nella Leonardo RN Active * Do you have difficulty dressing or bathing? Answer Date of Assessment Author Status No 07/30/2020 10:46 PM Nella Leonardo RN Active * Because of a physical, mental, or emotional condition, do you have difficulty doing errands alone such as visiting a doctor's office or shopping? Answer Date of Assessment Author Status No 07/30/2020 10:46 PM Nella Leonardo RN Active documented as of this encounter Mental Status * Because of a physical, mental, or emotional condition, do you have serious difficulty concentrating, remembering, or making decisions? Answer Entry Date Author Status No 07/30/2020 10:46 PM Nella Leonardo RN Active documented in this encounter Medications at Time of Discharge albuterol sulfate HFA 108 (90 Base) MCG/ACT inhaler INHALE 2 PUFFS BY INHALATION ROUTE EVERY 4 HOURS DIRECTED 06/23/2023 aspirin-acetamin ophen-caffeine (EXCEDRIN MIGRAINE) 250-250-65 MG tablet Take 1 tablet by mouth every 6 (six) hours as needed for Pain. benzonatate (TESSALON) 200 MG capsule TAKE 1 CAPSULE BY MOUTH THREE TIMES A DAY FOR 30 DAYS 06/23/2023 buprenorphine-na loxone (SUBOXONE) 8-2 MG SL Tab SL tablet PLACE 1 TABLET TWICE A DAY BY SUBLINGUAL ROUTE DIRECTED FOR 30 DAYS. 04/01/2023 EPINEPHrine 0.3 MG/0.3ML injection 09/22/2023 escitalopram (LEXAPRO) 10 MG tablet 06/07/2023 hydrOXYzine (VISTARIL) 50 MG capsule TAKE 1 CAPSULE BY MOUTH TWICE A DAY NEEDED FOR 30 DAYS 03/26/2023 ibuprofen (MOTRIN) 200 MG tablet Take 3 tablets (600 mg total) by mouth every 6 (six) hours as needed for Pain. SUMAtriptan (IMITREX) 100 MG tablet 03/22/2023 omeprazole (PRILOSEC) 20 MG capsuleIndicatio ns:Acute ITP (CMS/HCC HHS/HCC) Take 1 capsule (20 mg total) by mouth daily. 30 capsule 1 10/03/2023 documented as of this encounter Plan of Treatment Upcoming Encounters Date Type Department Care Team (Late st Contact Info) Description 09/25/2024 11:30 AM MACHINE OVERHAULER Appointment [facility] [address] [place] [address] Roberta Alex MD [address] [place] [address] 09/25/2024 11:40 AM MACHINE OVERHAULER Office Visit [facility] [address] [place] [address] Roberta Alex MD [address] [place], [place] [address] documented as of this encounter Procedures Procedure Name Priority Date/Time Associated Diagnosis Comments CBC W/DIFF AUTOMATED Routine 10/18/2023 12:13 PM CDT Thrombocytopenia (CMS/HCC) documented in this encounter Results * (ABNORMAL) CBC W/DIFF AUTOMATED (10/18/2023 12:13 PM CDT) WBC 8.17 4.00 - 10.80 x10'3/uL 10/18/2023 12:27 PM CDT [facility] RBC 4.69 4.10 - 5.40 x10'6/uL 10/18/2023 12:27 PM CDT [facility] HGB 13.3 12.0 - 16.0 G/DL 10/18/2023 12:27 PM CDT [facility] HCT 41.8 36.0 - 47.0 % 10/18/2023 12:27 PM CDT [facility] MCV 89.1 78.0 - 100.0 FL 10/18/2023 12:27 PM CDT [facility] MCH 28.4 27.0 - 31.0 PG 10/18/2023 12:27 PM CDT [facility] MCHC 31.8(L) 33.0 - 36.0 G/DL 10/18/2023 12:27 PM CDT [facility] RDW 12.7 11.5 - 14.5 % 10/18/2023 12:27 PM CDT [facility] PLT 33(L) 150 - 350 x10'3/uL 10/18/2023 12:27 PM CDT [facility] MPV RESULTS NOT AVAILABLE 7.4 - 10.4 FL 10/18/2023 12:27 PM CDT [facility] CBC COMMENT NORMAL REFERENCE RANGE NOT ESTABLISHED FOR THE PROPORTIONAL LEUKOCYTE DIFFERENTIAL. 10/18/2023 12:27 PM CDT [facility] NEUTROPHILS % 65.0 % 10/18/2023 12:27 PM CDT [facility] LYMPHOCYTES % 22.3 % 10/18/2023 12:27 PM CDT [facility] MONOCYTES % 5.0 % 10/18/2023 12:27 PM CDT [facility] EOSINOPHILS % 6.5 % 10/18/2023 12:27 PM CDT [facility] BASOPHILS % 1.0 % 10/18/2023 12:27 PM CDT [facility] IMMATURE GRANS % 0.2 % 10/18/19 12:27 PM CDT [facility] NRBC 0.0 % 10/18/2023 12:27 PM CDT [facility] ABS. NEUTROPHILS 5.31 1.60 - 8.30 x10'3/uL 10/18/2023 12:27 PM CDT [facility] ABS. LYMPHOCYTES 1.82 0.80 - 4.70 x10'3/uL 10/18/2023 12:27 PM CDT [facility] ABS. MONOCYTES 0.41 0.00 - 1.50 x10'3/uL 10/18/2023 12:27 PM CDT [facility] ABS. EOSINOPHILS 0.53(H) 0.00 - 0.40 x10'3/uL 10/18/2023 12:27 PM CDT [facility] ABS. BASOPHILS 0.08 0.00 - 0.20 x10'3/uL 10/18/2023 12:27 PM CDT [facility] ABS. IMMATURE GRANULOCYTES 0.02 0.00 - 0.03 x10'3/uL 10/18/2023 12:27 PM CDT [facility] ABS. NUCLEATED RBC'S 0.00 0.00 x10'3/uL 10/18/2023 12:27 PM CDT [facility] PLT MORPH. DECREASED 10/18/2023 12:34 PM CDT [facility] RBC MORPHOLOGY NORMAL 10/18/2023 12:34 PM CDT [facility] 10/18/2023 12:1 3 PM CDT Roberta Alex MD LABORATORY Final Result [facility] [address] [place] [address], documented in this encounter Visit Diagnoses Diagnosis Thrombocytopenia (CMS/HCC) Thrombocytopenia, unspecified documented in this encounter Additional Health Concerns Infection Onset Date Last Indicated Resolved Time MRSA 06/05/2021 06/05/2021 documented as of this encounter Care Teams Turning Lathe Tender Relationship Specialty Start Date End Date Alejandro Blevins MD PCP - General FAMILY PRACTICE 12/10/19 documented as of this encounter
--- OUTSIDE RECORDS SUMMARY | 2024-07-11 05:39 | XMS_ITS | Encounter Summary ---
Author Organization [facility] Address [facility] [place] [address] [place] [address] Care Team Providers Care Spinning Mule Operator Name Role Phone Alejandro Blevins MD Primary Care Provider [phone] Encounter Details Date Type Department Care Team (Late st Contact Info) Description 06/19/2024 Orders Only [address] [place] [address] Roberta Alex MD [address] [place] [address] Social History Tobacco Use Types Packs/Day Years Used Date Smoking Tobacco: Every Day Cigarettes Smokeless Tobacco: Never Alcohol Use Standard Drinks/Week Comments Not Currently 0 (1 standard drink = 0.6 oz pur e alcohol) Comments No Sex and Gender Information Value Date Recorded Sex Assigned at Not on file Legal Sex Female 11:30 PM COLLEGE SPORTS COACH Gender Identity Female 11/10/2021 3:09 PM CDT Sexual Orientation Straight 11/10/2021 3: 09 PM CDT documented as of this encounter Functional Status * RETIRED Are you deaf or do you have serious difficulty hearing Answer Date of Assessment Author Status No 07/30/2020 10:48 PM COLLEGE SPORTS COACH Acti ve * RETIRED Are you blind or do you have serious difficulty seeing, even when wearing glasses? Answer Date of Assessment Author Status No 07/30/2020 10:46 PM COLLEGE SPORTS COACH Acti ve * Do you have serious difficulty walking or climbing stairs? Answer Date of Assessment Author Status No 07/30/2020 10:46 PM COLLEGE SPORTS COACH Bringuet, Nella C, RN Active * Do you have difficulty [...] Leonardo RN Active documented in this encounter Plan of Treatment Upcoming Encounters Date Type Department Care Team (Late st [facility] Info) Description 09/25/2024 11:30 AM COLLEGE SPORTS COACH Appointment [facility] [address] [place] [address] Roberta Alex MD [address] [place] [address] 09/25/2024 11:40 AM COLLEGE SPORTS COACH Office Visit [facility] [address] [place] [address] Roberta Alex MD [address] [place] [address] Scheduled Orders Name Type Priority Associated Diagnoses Orde r Schedule CBC W/DIFF AUTOMATED Lab Routine Thrombocytopenia ([facility]/HCC) Expected: 09/25/2024, Expires: 06/19/2025 COMPREHENSIVE METABOLIC PANEL Lab Routine Thrombocytopenia (CMS/HCC) Expected: 09/25/2024, Expires: 06/19/2025 documented as of this encounter Visit Diagnoses Diagnosis Thrombocytopenia (CMS/HCC)- Primary Thrombocytopenia, unspecified documented in this encounter Additional Health Concerns Infection Onset Date Last Indicated Resolved Time MRSA 06/05/2021 06/05/2021 documented as of this encounter Care Teams Spinning Mule Operator Relationship Specialty Start Date End Date Alejandro Blevins MD PCP - General FAMILY PRACTICE 12/10/19 documented as of this encounter
--- OUTSIDE RECORDS SUMMARY | 2024-07-11 05:39 | XMS_ITS | Clinical Summary ---
Author Organization [facility] Address [address] [place] [address]. [place] [address] [place] [address] Care Team Providers Care Account Services Coordinator Name Role Phone Alejandro Blevins MD Primary Care Provider [phone] Allergies Active Allergy Reactions Criticality Noted Date Comments Bee Venom Anaphylaxis High 12/07/2019 Iodinated Contrast Media Anaphylaxis High 02/04/2021 Shellfish Allergy Anaphylaxis High 12/07/2019 Medications aspirin-acetami nophen-caffeine (EXCEDRIN MIGRAINE) 250-250-65 MG tablet Take 1 tablet by mouth every 6 (six) hours as needed for Pain. Active ibuprofen (MOTRIN) 200 MG tablet Take 3 tablets (600 mg total) by mouth every 6 (six) hours as needed for Pain. Active buprenorphine-n aloxone (SUBOXONE) 8-2 MG SL Tab SL tablet PLACE 1 TABLET TWICE A DAY BY SUBLINGUAL ROUTE DIRECTED FOR 30 DAYS. 3 Active hydrOXYzine (VISTARIL) 50 MG capsule TAKE 1 CAPSULE BY MOUTH TWICE A DAY NEEDED FOR 30 DAYS 3 Active SUMAtriptan (IMITREX) 100 MG tablet 3 Active albuterol sulfate HFA 108 (90 Base) MCG/ACT inhaler INHALE 2 PUFFS BY INHALATION ROUTE EVERY 4 HOURS DIRECTED 3 Active benzonatate (TESSALON) 200 MG capsule TAKE 1 CAPSULE BY MOUTH THREE TIMES A DAY FOR 30 DAYS 3 Active escitalopram (LEXAPRO) 10 MG tablet 3 Active EPINEPHrine 0.3 MG/0.3ML injection 4 Active omeprazole (PRILOSEC) 20 MG capsuleIndicati ons:Acute ITP ([facility] HHS/HCC) TAKE 1 CAPSULE BY MOUTH EVERY DAY 90 capsule 1 4 Active DOPTELET 20 MG Tab TAKE 1 TABLET BY MOUTH 1 TIME A DAY 30 tablet 3 4 Active Active Problems Problem Noted Date Diagnosed Date Tendinitis of right rotator cuff 10/07/2022 Medial epicondylitis of right elbow 10/07/2022 Iron deficiency anemia due to chronic blood loss 12/31/2020 Thrombocytopenia 07/30/2020 Anti-cardiolipin antibody positive 07/30/2020 Chronic ITP (idiopathic thrombocytopenia) (CMS/H CC [facility]) 05/13/2020 Iron deficiency anemia secon brooke to inadequate dietary iron intake 12/19/2019 Other dietary vitamin B12 deficiency anemia 11/23 Hepatitis C virus infection without hepatic coma 12/08/2019 Polysubstance abuse ([facility] HHS/[facility]) 12/08/2019 Thrombocytopenia affecting ([facility]) 12/08/2019 Transaminitis 12/08/2019 Twin ([facility]) 12/08/2019 Anemia 12/07/2019 Encounters Date Type Department Care Team Description 06/19/2024 10:40 AM SHOP LABORER Office Visit [facility] [place] [address] Roberta Alex MD Follow Up (Chronic ITP (idiopathic thrombocytopenia) ([facility])); Lab Results 06/19/2024 10:20 AM SHOP LABORER - 06/19/2024 11:59 PM SHOP LABORER Hospital Encounter [facility] [place] [address] [place] [address] Roberta Alex MD Discharge Disposition: Home or Self Care (Routine Discharge) 06/19/[address] [facility] [place] [address] [address] Roberta Alex MD 06/19/2024 Travel from Last 3 Months Family History Medical History Relation Comments No Known Problems Brother No Known Problems Father No Known Problems Mother No Known Problems Sister Relation Status Comments Brother Alive Father Alive Mother Alive Sister Alive Social History Tobacco Use Types Packs/Day Years Used Date Smoking Tobacco: Every Day Cigarettes Smokeless Tobacco: Never Tobacco Cessation:Ready to Q uit: Not Asked; Counseling Given: Not Answered Alcohol Use Standard Drinks/Week Comments Not Currently 0 (1 standard drink = 0.6 oz pur e alcohol) Comments No Sex and Gender Information Value Date Recorded Sex Assigned at Not on file Legal Sex Female 11:30 PM SHOP LABORER Gender Identity Female 11/10/2021 3:09 PM CDT Sexual Orientation Straight 11/10/2021 3: 09 PM CDT Last Filed Vital Signs Vital Sign Reading Time Taken Comments Blood Pressure 122/75 06/19/2024 10:47 AM SHOP LABORER Pulse 73 06/19/2024 10:47 AM SHOP LABORER Temperature 36.1 ??C (97 ??F) 06/19/2024 10: 47 AM SHOP LABORER Respiratory Rate 20 06/19/2024 10:4 7 AM SHOP LABORER Oxygen Saturation 99% 06/19/2024 10: 47 AM SHOP LABORER Inhaled Oxygen Concentration - - Weight 77.1 kg (169 lb 15.6 oz) 024 10:47 AM SHOP LABORER Height 160 cm (5' 3 ) 06/19/2024 10:47 AM SHOP LABORER Body Mass Index 30.11 06/19/2024 10:47 AM SHOP LABORER Plan of Treatment Upcoming Encounters Date Type Department Care Team (Late st Contact Info) Description 09/25/2024 11:30 AM SHOP LABORER Appointment [facility] [address] [place] [address] Roberta Alex MD [address] [place] [address] 09/25/2024 11:40 AM SHOP LABORER Office Visit [facility] [address] [place] [address] Roberta Alex MD [address] [place] [address] Health Maintenance Due Date Last Done Comments Cervical Cancer Screening Pap Smear (Age 30 to 64) Every 3 Years 1988 Annual Physical 1991 DTaP, Tdap and Td Vaccines (4 - Tdap) 2007 12/23/1993, 12/27/1989, 04/07/1989, Additional history exists Hepatitis B Vaccines (1 of 3 - 19+ 3-dose series) 2007 Pneumococcal Vaccine: Pediatrics (0 to 5 Years) and At-Risk Patients (6 to 64 Years) (2 of 2 - PPSV23 or PCV20) 09/26/2014 08/01/2014 Cervical Cancer Screening Pap with HPV Testing (Age 30 to 64) Every 5 Years 2018 Cervical Cancer Screening with HPV 2018 COVID-19 Vaccine ( season) 2024 Influenza Adult (#1) 2024 Hepatitis C Completed 09/09/2020, 07/25, 03/04/2020, Additional history exists HPV Vaccines Aged Out No longer eligi ble based on patient's age to complete this topic Meningococcal Vaccine Aged Out No rambo marquise eligible based on patient's age to complete this topic RSV Immunizations Under 20 Months Aged Out No longer eligible based on patient's age to complete this topic Procedures Procedure Name Priority Date/Time Associated Diagnosis Comments CBC W/DIFF AUTOMATED Routine 06/19/2024 10:40 AM SHOP LABORER Thrombocytopenia (CMS/HCC) from Last 3 Months Results * (ABNORMAL) CBC W/DIFF AUTOMATED (06/19/2024 10:40 AM SHOP LABORER) WBC 8.99 4.00 - 10.80 x10'3/uL 06/19/2024 10:55 AM SHOP LABORER [facility] RBC 4.87 4.10 - 5.40 x10'6/uL 06/19/2024 10:55 AM SHOP LABORER [facility] HGB 14.1 12.0 - 16.0 G/DL 06/19/2024 10:55 AM SHOP LABORER [facility] HCT 43.5 36.0 - 47.0 % 06/19/2024 10:55 AM SHOP LABORER [facility] MCV 89.3 78.0 - 100.0 FL 06/19/2024 10:55 AM SHOP LABORER [facility] MCH 29.0 27.0 - 31.0 PG 06/19/2024 10:55 AM SHOP LABORER [facility] MCHC 32.4(L) 33.0 - 36.0 G/DL 06/19/2024 10:55 AM [facility] RDW 13.9 11.5 - 14.5 % 06/19/2024 10:55 AM [facility] PLT 197 150 - 350 x10'3/uL 06/19/2024 10:55 AM [facility] MPV 13.0(H) 7.4 - 10.4 FL 06/19/2024 10:55 AM [facility] CBC COMMENT NORMAL REFERENCE RANGE NOT ESTABLISHED FOR THE PROPORTIONAL LEUKOCYTE DIFFERENTIAL. 06/19/2024 10:55 AM [facility] NEUTROPHILS % 60.3 % 06/19/2024 10:55 AM [facility] LYMPHOCYTES % 26.4 % 06/19/2024 10:55 AM [facility] MONOCYTES % 5.9 % 06/19/2024 10:55 AM [facility] EOSINOPHILS % 6.3 % 06/19/2024 10:55 AM [facility] BASOPHILS % 0.9 % 06/19/2024 10:55 AM [facility] IMMATURE GRANS % 0.2 % 06/19/20 10:55 AM [facility] NRBC % 0.0 % 06/19/2024 10:55 AM [facility] ABS. NEUTROPHILS 5.42 1.60 - 8.30 x10'3/uL 06/19/2024 10:55 AM [facility] ABS. LYMPHOCYTES 2.37 0.80 - 4.70 x10'3/uL 06/19/2024 10:55 AM [facility] ABS. MONOCYTES 0.53 0.00 - 1.50 x10'3/uL 06/19/2024 10:55 AM [facility] ABS. EOSINOPHILS 0.57(H) 0.00 - 0.40 x10'3/uL 06/19/2024 10:55 AM [facility] ABS. BASOPHILS 0.08 0.00 - 0.20 x10'3/uL 06/19/2024 10:55 AM SHOP LABORER [facility] ABS. IMMATURE GRANULOCYTES 0.02 0.00 - 0.03 x10'3/uL 06/19/2024 10:55 AM SHOP LABORER [facility] ABS. NUCLEATED RBC'S 0.00 0.00 - 0.01 x10'3/uL 06/19/2024 10:55 AM SHOP LABORER [facility] 06/19/2024 10:4 0 AM SHOP LABORER us Roberta Alex MD LABORATORY Final Result [facility] [address] [employer] [place] [id number], from Last 3 Months Additional Health Concerns Infection Onset Date Last Indicated MRSA 06/05/2021 06/05/[address] [place] [address] [place] [address] Advance Directives * Full Code (Latest Code Status on File) Date Activated Date Inactivated Comments 07/30/2020 3:42 PM 07/31/2020 6:41 PM Care Teams Account Services Coordinator Relationship Specialty Start Date End Date Alejandro Blevins MD PCP - General FAMILY PRACTICE 12/10/19
--- OUTSIDE RECORDS SUMMARY | 2024-07-11 05:39 | XMS_ITS | Encounter Summary ---
Author Organization [facility] Address [address] [place] [address]. [place], [place] [address] [place] [address] Care Team Providers Care Editor Sound Name Role Phone Alejandro Blevins MD Primary Care Provider [phone] Encounter Details Date Type Department Care Team (Latest Contact Info) Description 12/06/2023 Travel Social History Tobacco Use Types Packs/Day Years Used Date Smoking Tobacco: Every Day Cigarettes Smokeless Tobacco: Never Alcohol Use Standard Drinks/Week Comments Not Currently 0 (1 standard drink = 0.6 oz pur e alcohol) Comments No Sex and Gender Information Value Date Recorded Sex Assigned at Not on file Legal Sex Female 11:30 PM NP Gender Identity Female 11/10/2021 3:09 PM CDT Sexual Orientation Straight 11/10/2021 3: 09 PM CDT documented as of this encounter Functional Status * RETIRED Are you deaf or do you have serious difficulty hearing Answer Date of Assessment Author Status No 07/30/2020 10:48 PM NP Acti ve * RETIRED Are you blind or do you have serious difficulty seeing, even when wearing glasses? Answer Date of Assessment Author Status No 07/30/2020 10:46 PM NP Acti ve * Do you have serious difficulty walking or climbing stairs? Answer Date of Assessment Author Status No 07/30/2020 10:46 PM NP Nella Le RN Active * Do you have difficulty dressing or bathing? Answer Date of Assessment Author Status No 07/30/2020 10:46 PM NP Nella Le RN Active * Because of a physical, mental, or emotional condition, do you have difficulty doing errands alone such as visiting a doctor's office or shopping? Answer Date of Assessment Author Status No 07/30/2020 10:46 PM NP Nella Le RN Active documented as of this encounter Mental Status * Because of a physical, mental, or emotional condition, do you have serious difficulty concentrating, remembering, or making decisions? Answer Entry Date Author Status No 07/30/2020 10:46 PM NP Nella Le RN Active documented in this encounter Plan of Treatment Upcoming Encounters Date Type Department Care Team (Late st Contact Info) Description 09/25/2024 11:30 AM NP Appointment [facility] [address] [facility] [place] [address] Roberta Alex MD [address] [place] [address] 09/25/2024 11:40 AM NP Office Visit [facility] [address] [facility] [place] [address] Roberta Alex MD [address] [place] [address] documented as of this encounter Visit Diagnoses Not on filedocumented in this encounter Additional Health Concerns Infection Onset Date Last Indicated Resolved Time MRSA 06/05/2021 06/05/2021 documented as of this encounter Care Teams Editor Sound Relationship Specialty Start Date End Date Alejandro Blevins MD PCP - General FAMILY PRACTICE 12/10/19 documented as of this encounter
--- OUTSIDE RECORDS SUMMARY | 2024-07-11 05:39 | XMS_ITS | Encounter Summary ---
Author Organization [facility] Address [address] [place] [address]. [place], [place] [address] [place] [address] Care Team Providers Care Avionics Manager Name Role Phone Alejandro Blevins MD Primary Care Provider [phone] Encounter Details Date Type Department Care Team (Latest Contact Info) Description 01/17/2024 Travel Social History Tobacco Use Types Packs/Day Years Used Date Smoking Tobacco: Every Day Cigarettes Smokeless Tobacco: Never Alcohol Use Standard Drinks/Week Comments Not Currently 0 (1 standard drink = 0.6 oz pur e alcohol) Comments No Sex and Gender Information Value Date Recorded Sex Assigned at Not on file Legal Sex Female 11:30 PM FINANCIAL RECORDING CLERK Gender Identity Female 11/10/2021 3:09 PM CDT Sexual Orientation Straight 11/10/2021 3: 09 PM CDT documented as of this encounter Functional Status * RETIRED Are you deaf or do you have serious difficulty hearing Answer Date of Assessment Author Status No 07/30/2020 10:48 PM FINANCIAL RECORDING CLERK Acti ve * RETIRED Are you blind or do you have serious difficulty seeing, even when wearing glasses? Answer Date of Assessment Author Status No 07/30/2020 10:46 PM FINANCIAL RECORDING CLERK Acti ve * Do you have serious difficulty walking or climbing stairs? Answer Date of Assessment Author Status No 07/30/2020 10:46 PM FINANCIAL RECORDING CLERK Nella Le RN Active * Do you have difficulty dressing or bathing? Answer Date of Assessment Author Status No 07/30/2020 10:46 PM FINANCIAL RECORDING CLERK Nella Le RN Active * Because of a physical, mental, or emotional condition, do you have difficulty doing errands alone such as visiting a doctor's office or shopping? Answer Date of Assessment Author Status No 07/30/2020 10:46 PM FINANCIAL RECORDING CLERK Nella Le RN Active documented as of this encounter Mental Status * Because of a physical, mental, or emotional condition, do you have serious difficulty concentrating, remembering, or making decisions? Answer Entry Date Author Status No 07/30/2020 10:46 PM FINANCIAL RECORDING CLERK Nella Le RN Active documented in this encounter Plan of Treatment Upcoming Encounters Date Type Department Care Team (Late st Contact Info) Description 09/25/2024 11:30 AM FINANCIAL RECORDING CLERK Appointment [facility] [address] [facility] [facility] [place] [address] Roberta Alex MD [address] [place] [address] 09/25/2024 11:40 AM FINANCIAL RECORDING CLERK Office Visit [facility] [address] [facility] [place] [address] Roberta Alex MD [address] [place] [address] documented as of this encounter Visit Diagnoses Not on filedocumented in this encounter Additional Health Concerns Infection Onset Date Last Indicated Resolved Time MRSA 06/05/2021 06/05/2021 documented as of this encounter Care Teams Avionics Manager Relationship Specialty Start Date End Date Alejandro Blevins MD PCP - General FAMILY PRACTICE 12/10/19 documented as of this encounter
--- OUTSIDE RECORDS SUMMARY | 2024-07-11 05:39 | XMS_ITS | Encounter Summary ---
Author Organization [facility] Address [address] [place] [address]. [place] [address] [place] [address] Care Team Providers Care Termite Control Representative Name Role Phone Alejandro Blevins MD Primary Care Provider [phone] Encounter Details Date Type Department Care Team (Late st Contact Info) Description 11/25/2023 Orders Only [facility] [address] [place] [address] Pat Moya, FILLER SHAKER [address] [place] [address] Social History Tobacco Use Types Packs/Day Years Used Date Smoking Tobacco: Every Day Cigarettes Smokeless Tobacco: Never Alcohol Use Standard Drinks/Week Comments Not Currently 0 (1 standard drink = 0.6 oz pur e alcohol) Comments No Sex and Gender Information Value Date Recorded Sex Assigned at Not on file Legal Sex Female 11:30 PM LAST PICKER Gender Identity Female 11/10/2021 3:09 PM CDT Sexual Orientation Straight 11/10/2021 3: 09 PM CDT documented as of this encounter Functional Status * RETIRED Are you deaf or do you have serious difficulty hearing Answer Date of Assessment Author Status No 07/30/2020 10:48 PM LAST PICKER Acti ve * RETIRED Are you blind or do you have serious difficulty seeing, even when wearing glasses? Answer Date of Assessment Author Status No 07/30/2020 10:46 PM LAST PICKER Acti ve * Do you have serious difficulty walking or climbing stairs? Answer Date of Assessment Author Status No 07/30/2020 10:46 PM LAST PICKER Nella Le RN Active * Do you [...] st Contact Info) Description 09/25/2024 11:30 AM LAST PICKER Appointment [facility] [address] [place] [address] Roberta Alex MD [address] [place] [address] 09/25/2024 11:40 AM LAST PICKER Office Visit [facility] [address] [place] [address] Roberta Alex MD [address] [place] [address] documented as of this encounter Results * ASSAY OF THYROID STIMULATING HORMONE TSH (11/25/2023 1:41 PM CDT) TSH 1.425 0.358 - 3.740 uIU/ML 11/25/2023 2:20 PM CDT [facility] Comment: ASSAY PERFORMED BY CHEMILUMINESCENT IMMUNOASSAY METHODOLOGY USING SIEMENS DIMENSION REAGENT. PATIENT RESULTS DETERMINED BY ASSAYS FROM DIFFERENT MANUFACTURERS AND/OR BY DIFFERENT METHODS MAY NOT BE COMPARABLE. 11/25/2023 1:41 PM CDT Pat Moya NP LABORATORY Final Result [facility] [address] [place] [address], * (ABNORMAL) LIPID PANEL (11/25/2023 1:41 PM CDT) CHOLESTEROL 244 MG/DL 11/26/2023 4:45 PM CDT [facility] Comment:HIGH: > OR = 240 TRIGLYCERIDES 241 MG/DL 11/26/2023 4:45 PM CDT [facility] Comment:200-499 HIGH HDL 32(L) >49 MG/DL 11/26/2023 4:45 PM CDT [facility] LDL-C 164 MG/DL 11/26/2023 4:45 PM CDT [facility] Comment:160-189 HIGH VLDL CALCULATION 48 MG/DL 11/26/19 4:45 PM CDT [facility] Comment:REFERENCE RANGE NOT ESTABLISHED CHOL/HDL RATIO 7.6 11/26/2023 4:45 PM CDT [facility] Comment:REFERENCE RANGE NOT ESTABLISHED LDL/HDL 5.1 11/26/2023 4:45 PM CDT [facility] Comment:REFERENCE RANGE NOT ESTABLISHED NON HDL CHOLESTEROL 212 MG/DL 11/26/2023 4:45 PM CDT [facility] Comment:REFERENCE RANGE NOT ESTABLISHED 11/25/2023 1:41 PM CDT Pat Moya NP LABORATORY Final Result [facility] [address] [place] [address], [place] [phone] * HEMOGLOBIN, GLYCOSYLATED (11/25/2023 1:41 PM CDT) Pathologist [facility] HGB A1C 5.4 <5.7 % 11/26/2023 4:31 PM CDT [facility] ESTIMATED AVG GLUCOSE 108 74 - 114 MG/DL 11/26/2023 4:31 PM CDT [facility] 11/25/2023 1:41 PM CDT Pat Moya NP LABORATORY Final Result [facility] [address] [place] [address], [phone] * COMPREHENSIVE METABOLIC PANEL (11/25/2023 1:41 PM CDT) SODIUM S/P/B 140 136 - 145 MMOL/L 11/25/2023 2:20 PM CDT [facility] POTASSIUM S/P/B 4.0 3.5 - 5.1 MMOL/L 11/25/2023 2:20 PM CDT [facility] CHLORIDE S/P/B 105 98 - 107 MMOL/L 11/25/2023 2:20 PM CDT [facility] CO2 24.9 21.0 - 32.0 MMOL/L 11/25/2023 2:20 PM CDT [facility] GLUCOSE 82 70 - 99 MG/DL 11/25/2023 2:20 PM CDT [facility] Comment: FASTING GLUCOSE 100 TO 125 MG/DL IS CONSISTENT WITH IMPAIRED FASTING GLUCOSE. FASTING GLUCOSE >125 MG/DL IS CONSISTENT WITH DIABETES. RANDOM GLUCOSE >200 MG/DL WITH HYPERGLYCEMIC SYMPTOMS IS CONSISTENT WITH DIABETES. PER ADA GUIDELINES BUN 14 6 - 24 MG/DL 11/25/2023 2:20 PM CDT [facility] CREATININE S/P/B 0.75 0.55 - 1.02 MG/DL 11/25/2023 2:20 PM CDT [facility] CALCIUM S/P/B 8.6 8.4 - 10.5 MG/DL 11/25/2023 2:20 PM CDT [facility] BILIRUBIN TOTAL S/P/B 0.2 0.2 - 1.0 MG/DL 11/25/2023 2:20 PM CDT [facility] Comment: THIS ASSAY IS NOT RECOMMENDED FOR PATIENTS UNDERGOING TREATMENT WITH ELTROMBOPAG DUE TO THE POTENTIAL FOR FALSELY ELEVATED RESULTS. ALKALINE PHOSPHATASE S/P/B 69 37 - 98 U/L 11/25/2023 2:20 PM CDT [facility] AST 19 15 - 37 U/L 11/25/2023 2:20 PM CDT [facility] ALT 20 14 - 59 U/L 11/25/2023 2:20 PM CDT [facility] TOTAL PROTEIN S/P/B 6.9 6.4 - 8.2 G/DL 11/25/2023 2:20 PM CDT [facility] ALBUMIN S/P/B 3.5 3.4 - 5.0 G/DL 11/25/2023 2:20 PM CDT [facility] ANION GAP 10.1 5.0 - 15.0 MMOL/L 11/25/2023 2:20 PM CDT [facility] OSMOLALITY (CALC) 290 MOSM/KG 024 2:20 PM CDT [facility] Comment:REFERENCE RANGE NOT ESTABLISHED GFR ESTIMATE >90 >89 ML/MIN/1. 73 M2 11/25/2023 2:20 PM CDT [facility] GFR NOTES GFR REFERENCE S: 11/25/2023 2:20 PM CDT [facility] Comment: THE ESTIMATED GFR IS CALCULATED USING THE 2020 CKD-EPI EQUATION. THE FOLLOWING CATEGORIES FOR GRADING RENAL FUNCTION ARE RECOMMENDED BY THE INTERNATIONAL SOCIETY OF NEPHROLOGY (KDIGO 2012 CLINICAL PRACTICE GUIDELINE). G1,NORMAL OR HIGH: >89 ml/min/1.73 m2 G2,MILDLY DECREASED: 60-89 ml/min/1.73 m2 G3A,MILDLY TO MODERATELY DECREASED: 45-59 ml/min/1.73 m2 G3B,MODERATELY TO SEVERELY DECREASED: 30-44 ml/min/1.73 m2 G4,SEVERELY DECREASED: 15-29 ml/min/1.73 m2 G5,KIDNEY FAILURE: <15 ml/min/1.73 m2 11/25/2023 1:41 PM CDT us Pat Moya NP LABORATORY Final Result [facility] [address] [place], [place] [address] [phone] documented in this encounter Visit Diagnoses Diagnosis Other detention (current) drug therapy- Primary documented in this encounter Additional Health Concerns Infection Onset Date Last Indicated Resolved Time MRSA 06/05/2021 06/05/2021 documented as of this encounter Care Teams Termite Control Representative Relationship Specialty Start Date End Date Alejandro Blevins MD PCP - General FAMILY PRACTICE 12/10/19 documented as of this encounter
--- OUTSIDE RECORDS SUMMARY | 2024-07-11 05:39 | XMS_ITS | Encounter Summary ---
Author Organization [facility] Address [facility] [place] [address] [place] [address] Care Team Providers Care Oven Press Tender Name Role Phone Alejandro Blevins MD Primary Care Provider Encounter Details Date Type Department Care Team (Late st Contact Info) Description 10/03/2023 Orders Only [address] [place] [address] Roberta Alex MD [address] [place] [address] Social History Tobacco Use Types Packs/Day Years Used Date Smoking Tobacco: Every Day Cigarettes Smokeless Tobacco: Never Alcohol Use Standard Drinks/Week Comments Not Currently 0 (1 standard drink = 0.6 oz pur e alcohol) Comments No Sex and Gender Information Value Date Recorded Sex Assigned at Not on file Legal Sex Female 11:30 PM WATER FABRICATOR OPERATOR Gender Identity Female 11/10/2021 3:09 PM CDT Sexual Orientation Straight 11/10/2021 3: 09 PM CDT documented as of this encounter Functional Status * RETIRED Are you deaf or do you have serious difficulty hearing Answer Date of Assessment Author Status No 07/30/2020 10:48 PM WATER FABRICATOR OPERATOR Acti ve * RETIRED Are you blind or do you have serious difficulty seeing, even when wearing glasses? Answer Date of Assessment Author Status No 07/30/2020 10:46 PM WATER FABRICATOR OPERATOR Acti ve * Do you have serious difficulty walking or climbing stairs? Answer Date of Assessment Author Status No 07/30/2020 10:46 PM WATER FABRICATOR OPERATOR Bringuet, Nella C, RN Active * Do you have difficulty dressing or bathing? Answer Date of Assessment Author Status No 07/30/2020 10:46 PM WATER FABRICATOR OPERATOR Nella Le RN Active * Because of [...] st Contact Info) Description 09/25/2024 11:30 AM WATER FABRICATOR OPERATOR Appointment [facility] [address] [place] [address] Roberta Alex MD [address] [place] [address] 09/25/2024 11:40 AM WATER FABRICATOR OPERATOR Office Visit [facility] [address] [place] [address] Roberta Alex MD [address] [place] [address] documented as of this encounter Visit Diagnoses Diagnosis Chronic ITP (idiopathic thrombocytopenia) ([facility])- Primary Immune thrombocytopenic purpura documented in this encounter Additional Health Concerns Infection Onset Date Last Indicated Resolved Time MRSA 06/05/2021 06/05/2021 documented as of this encounter Care Teams Oven Press Tender Relationship Specialty Start Date End Date Alejandro Blevins MD PCP - General FAMILY PRACTICE 12/10/19 documented as of this encounter
--- OUTSIDE RECORDS SUMMARY | 2024-07-11 05:39 | XMS_ITS | Encounter Summary ---
Author Organization [facility] Address [address] [place] [address]. [place], [place] [address] [place] [address] Care Team Providers Care Salon Receptionist Name Role Phone Alejandro Blevins MD Primary Care Provider [phone] Encounter Details Date Type Department Care Team (Latest Contact Info) Description 03/06/2024 Travel Social History Tobacco Use Types Packs/Day Years Used Date Smoking Tobacco: Every Day Cigarettes Smokeless Tobacco: Never Alcohol Use Standard Drinks/Week Comments Not Currently 0 (1 standard drink = 0.6 oz pur e alcohol) Comments No Sex and Gender Information Value Date Recorded Sex Assigned at Not on file Legal Sex Female 11:30 PM WOOD TURNING LATHE OPERATOR Gender Identity Female 11/10/2021 3:09 PM CDT Sexual Orientation Straight 11/10/2021 3: 09 PM CDT documented as of this encounter Functional Status * RETIRED Are you deaf or do you have serious difficulty hearing Answer Date of Assessment Author Status No 07/30/2020 10:48 PM WOOD TURNING LATHE OPERATOR Acti ve * RETIRED Are you blind or do you have serious difficulty seeing, even when wearing glasses? Answer Date of Assessment Author Status No 07/30/2020 10:46 PM WOOD TURNING LATHE OPERATOR Acti ve * Do you have serious difficulty walking or climbing stairs? Answer Date of Assessment Author Status No 07/30/2020 10:46 PM WOOD TURNING LATHE OPERATOR Nella Le RN Active * Do you have difficulty dressing or bathing? Answer Date of Assessment Author Status No 07/30/2020 10:46 PM WOOD TURNING LATHE OPERATOR Nella Le RN Active * Because of a physical, mental, or emotional condition, do you have difficulty doing errands alone such as visiting a doctor's office or shopping? Answer Date of Assessment Author Status No 07/30/2020 10:46 PM WOOD TURNING LATHE OPERATOR Nella Le RN Active documented as of this encounter Mental Status * Because of a physical, mental, or emotional condition, do you have serious difficulty concentrating, remembering, or making decisions? Answer Entry Date Author Status No 07/30/2020 10:46 PM WOOD TURNING LATHE OPERATOR Nella Le RN Active documented in this encounter Plan of Treatment Upcoming Encounters Date Type Department Care Team (Late st Contact Info) Description 09/25/2024 11:30 AM WOOD TURNING LATHE OPERATOR Appointment [facility] [address] [place] [address] Roberta Alex MD [address] [place] [address] 09/25/2024 11:40 AM WOOD TURNING LATHE OPERATOR Office Visit [facility] [address] [address] Roberta Alex MD [address] [place] [address] documented as of this encounter Visit Diagnoses Not on filedocumented in this encounter Additional Health Concerns Infection Onset Date Last Indicated Resolved Time MRSA 06/05/2021 06/05/2021 documented as of this encounter Care Teams Salon Receptionist Relationship Specialty Start Date End Date Alejandro Blevins MD PCP - General FAMILY PRACTICE 12/10/19 documented as of this encounter
--- OUTSIDE RECORDS SUMMARY | 2024-07-11 05:39 | XMS_ITS | Encounter Summary ---
Author Organization [facility] Address [address] [place] [address]. [place], [place] [address] [place] [address] Care Team Providers Care Marketing Database Consultant Name Role Phone Alejandro Blevins MD Primary Care Provider [phone] Encounter Details Date Type Department Care Team (Latest Contact Info) Description 06/28/2023 Travel Social History Tobacco Use Types Packs/Day Years Used Date Smoking Tobacco: Every Day Cigarettes Smokeless Tobacco: Never Alcohol Use Standard Drinks/Week Comments Not Currently 0 (1 standard drink = 0.6 oz pur e alcohol) Comments No Sex and Gender Information Value Date Recorded Sex Assigned at Not on file Legal Sex Female 11:30 PM POURER BUGGY LADLE Gender Identity Female 11/10/2021 3:09 PM CDT Sexual Orientation Straight 11/10/2021 3: 09 PM CDT documented as of this encounter Functional Status * RETIRED Are you deaf or do you have serious difficulty hearing Answer Date of Assessment Author Status No 07/30/2020 10:48 PM POURER BUGGY LADLE Acti ve * RETIRED Are you blind or do you have serious difficulty seeing, even when wearing glasses? Answer Date of Assessment Author Status No 07/30/2020 10:46 PM POURER BUGGY LADLE Acti ve * Do you have serious difficulty walking or climbing stairs? Answer Date of Assessment Author Status No 07/30/2020 10:46 PM POURER BUGGY LADLE Nella Le RN Active * Do you have difficulty dressing or bathing? Answer Date of Assessment Author Status No 07/30/2020 10:46 PM POURER BUGGY LADLE Nella Le RN Active * Because of a physical, mental, or emotional condition, do you have difficulty doing errands alone such as visiting a doctor's office or shopping? Answer Date of Assessment Author Status No 07/30/2020 10:46 PM POURER BUGGY LADLE Nella Le RN Active documented as of this encounter Mental Status * Because of a physical, mental, or emotional condition, do you have serious difficulty concentrating, remembering, or making decisions? Answer Entry Date Author Status No 07/30/2020 10:46 PM POURER BUGGY LADLE Nella Le RN Active documented in this encounter Plan of Treatment Upcoming Encounters Date Type Department Care Team (Late st Contact Info) Description 09/25/2024 11:30 AM POURER BUGGY LADLE Appointment [facility] [address] [place] [address] Roberta Alex MD [address] [place] [address] 09/25/2024 11:40 AM POURER BUGGY LADLE Office Visit [facility] [address] [facility] [place] [address] Roberta Alex MD [address] [place] [address] documented as of this encounter Visit Diagnoses Not on filedocumented in this encounter Additional Health Concerns Infection Onset Date Last Indicated Resolved Time MRSA 06/05/2021 06/05/2021 documented as of this encounter Care Teams Marketing Database Consultant Relationship Specialty Start Date End Date Alejandro Blevins MD PCP - General FAMILY PRACTICE 12/10/19 documented as of this encounter
--- OUTSIDE RECORDS SUMMARY | 2024-07-11 05:39 | XMS_ITS | Encounter Summary ---
Author Organization [facility] Address [facility] [place] [address] [place] [address] Care Team Providers Care Director Project Management Name Role Phone Alejandro Blevins MD Primary Care Provider [phone] Encounter Details Date Type Department Care Team (Late st Contact Info) Description 11/10/2023 Orders Only [address] [place] [address] Roberta Alex MD [address] [place] [address] Social History Tobacco Use Types Packs/Day Years Used Date Smoking Tobacco: Every Day Cigarettes Smokeless Tobacco: Never Alcohol Use Standard Drinks/Week Comments Not Currently 0 (1 standard drink = 0.6 oz pur e alcohol) Comments No Sex and Gender Information Value Date Recorded Sex Assigned at Not on file Legal Sex Female 11:30 PM AGRICULTURAL COMMODITIES GRADER Gender Identity Female 11/10/2021 3:09 PM CDT Sexual Orientation Straight 11/10/2021 3: 09 PM CDT documented as of this encounter Functional Status * RETIRED Are you deaf or do you have serious difficulty hearing Answer Date of Assessment Author Status No 07/30/2020 10:48 PM AGRICULTURAL COMMODITIES GRADER Acti ve * RETIRED Are you blind or do you have serious difficulty seeing, even when wearing glasses? Answer Date of Assessment Author Status No 07/30/2020 10:46 PM AGRICULTURAL COMMODITIES GRADER Acti ve * Do you have serious difficulty walking or climbing stairs? Answer Date of Assessment Author Status No 07/30/2020 10:46 PM AGRICULTURAL COMMODITIES GRADER Bringuet, Nella C, RN Active * Do you have difficulty dressing or bathing? Answer Date of Assessment Author Status No 07/30/2020 10:46 PM AGRICULTURAL COMMODITIES GRADER Nella Le RN Active * Because of [...] st Contact Info) Description 09/25/2024 11:30 AM AGRICULTURAL COMMODITIES GRADER Appointment [facility] [address] [place] [address] Roberta Alex MD [address] [place] [address] 09/25/2024 11:40 AM AGRICULTURAL COMMODITIES GRADER Office Visit [facility] [address] [place] [address] Roberta Alex MD [address] [place] [address] Scheduled Orders Name Type Priority Associated Diagnoses Orde r Schedule CBC W/DIFF AUTOMATED Lab Routine Iron deficiency anemia due to chronic blood loss Once a week for 5 Occurrences starting 11/10/2023 until 11/09/2024, 1 completed documented as of this encounter Results * (ABNORMAL) CBC W/DIFF AUTOMATED (11/25/2023 1:41 PM CDT) WBC 9.36 4.00 - 10.80 x10'3/uL 11/25/2023 1:54 PM CDT [facility] RBC 4.44 4.10 - 5.40 x10'6/uL 11/25/2023 1:54 PM CDT [facility] HGB 12.5 12.0 - 16.0 G/DL 11/25/2023 1:54 PM CDT [facility] HCT 39.4 36.0 - 47.0 % 11/25/2023 1:54 PM CDT [facility] MCV 88.7 78.0 - 100.0 FL 11/25/2023 1:54 PM CDT [facility] MCH 28.2 27.0 - 31.0 PG 11/25/2023 1:54 PM CDT [facility] MCHC 31.7(L) 33.0 - 36.0 G/DL 11/25/2023 1:54 PM CDT [facility] RDW 13.0 11.5 - 14.5 % 11/25/2023 1:54 PM CDT [facility] PLT 148(L) 150 - 350 x10'3/uL 11/25/2023 1:54 PM CDT [facility] MPV 14.1(H) 7.4 - 10.4 FL 11/25/2023 1:54 PM CDT [facility] CBC COMMENT NORMAL REFERENCE RANGE NOT ESTABLISHED FOR THE PROPORTIONAL LEUKOCYTE DIFFERENTIAL. 11/25/2023 1:54 PM CDT [facility] NEUTROPHILS % 65.9 % 11/25/2023 1:54 PM CDT [facility] LYMPHOCYTES % 17.4 % 11/25/2023 1:54 PM CDT [facility] MONOCYTES % 6.2 % 11/25/2023 1:54 PM CDT [facility] EOSINOPHILS % 9.7 % 11/25/2023 1:54 PM CDT [facility] BASOPHILS % 0.6 % 11/25/2023 1:54 PM CDT [facility] IMMATURE GRANS % 0.2 % 11/25/19 1:54 PM CDT [facility] NRBC 0.0 % 11/25/2023 1:54 PM CDT [facility] ABS. NEUTROPHILS 6.16 1.60 - 8.30 x10'3/uL 11/25/2023 1:54 PM CDT [facility] ABS. LYMPHOCYTES 1.63 0.80 - 4.70 x10'3/uL 11/25/2023 1:54 PM CDT [facility] ABS. MONOCYTES 0.58 0.00 - 1.50 x10'3/uL 11/25/2023 1:54 PM CDT [facility] ABS. EOSINOPHILS 0.91(H) 0.00 - 0.40 x10'3/uL 11/25/2023 1:54 PM CDT [facility] ABS. BASOPHILS 0.06 0.00 - 0.20 x10'3/uL 11/25/2023 1:54 PM CDT [facility] ABS. IMMATURE GRANULOCYTES 0.02 0.00 - 0.03 x10'3/uL 11/25/2023 1:54 PM CDT [facility] ABS. NUCLEATED RBC'S 0.00 0.00 x10'3/uL 11/25/2023 1:54 PM CDT [facility] 11/25/2023 1:41 PM CDT Roberta Alex MD LABORATORY Final Result [facility] [address] [place] [address], documented in this encounter Visit Diagnoses Diagnosis Iron deficiency anemia secondary to inadequate dietary iron intake- Primary Iron deficiency anemia due to chronic blood loss Iron deficiency anemia secondary to blood loss (chronic) documented in this encounter Additional Health Concerns Infection Onset Date Last Indicated Resolved Time MRSA 06/05/2021 06/05/2021 documented as of this encounter Care Teams Director Project Management Relationship Specialty Start Date End Date Alejandro Blevins MD PCP - General FAMILY PRACTICE 12/10/19 documented as of this encounter
--- OUTSIDE RECORDS SUMMARY | 2024-07-11 05:39 | XMS_ITS | Encounter Summary ---
Author Organization [facility] Address [address] [place] [address]. [place], [place] [address] [place] [address] Care Team Providers Care Life Insurance Sales Name Role Phone Alejandro Blevins MD Primary Care Provider [phone] Encounter Details Date Type Department Care Team (Latest Contact Info) Description 10/03/2023 Travel Social History Tobacco Use Types Packs/Day Years Used Date Smoking Tobacco: Every Day Cigarettes Smokeless Tobacco: Never Alcohol Use Standard Drinks/Week Comments Not Currently 0 (1 standard drink = 0.6 oz pur e alcohol) Comments No Sex and Gender Information Value Date Recorded Sex Assigned at Not on file Legal Sex Female 11:30 PM STRATEGIC PLANNING DIRECTOR Gender Identity Female 11/10/2021 3:09 PM CDT Sexual Orientation Straight 11/10/2021 3: 09 PM CDT documented as of this encounter Functional Status * RETIRED Are you deaf or do you have serious difficulty hearing Answer Date of Assessment Author Status No 07/30/2020 10:48 PM STRATEGIC PLANNING DIRECTOR Acti ve * RETIRED Are you blind or do you have serious difficulty seeing, even when wearing glasses? Answer Date of Assessment Author Status No 07/30/2020 10:46 PM STRATEGIC PLANNING DIRECTOR Acti ve * Do you have serious difficulty walking or climbing stairs? Answer Date of Assessment Author Status No 07/30/2020 10:46 PM STRATEGIC PLANNING DIRECTOR Nella Le RN Active * Do you have difficulty dressing or bathing? Answer Date of Assessment Author Status No 07/30/2020 10:46 PM STRATEGIC PLANNING DIRECTOR Nella Le RN Active * Because of a physical, mental, or emotional condition, do you have difficulty doing errands alone such as visiting a doctor's office or shopping? Answer Date of Assessment Author Status No 07/30/2020 10:46 PM STRATEGIC PLANNING DIRECTOR Nella Le RN Active documented as of this encounter Mental Status * Because of a physical, mental, or emotional condition, do you have serious difficulty concentrating, remembering, or making decisions? Answer Entry Date Author Status No 07/30/2020 10:46 PM STRATEGIC PLANNING DIRECTOR Nella Le RN Active documented in this encounter Plan of Treatment Upcoming Encounters Date Type Department Care Team (Late st Contact Info) Description 09/25/2024 11:30 AM STRATEGIC PLANNING DIRECTOR Appointment [facility] [address] [place] [address] Roberta Alex MD [address] [place] [address] 09/25/2024 11:40 AM STRATEGIC PLANNING DIRECTOR Office Visit [facility] [address] [place] [address] Roberta Alex MD [address] [place] [address] documented as of this encounter Visit Diagnoses Not on filedocumented in this encounter Additional Health Concerns Infection Onset Date Last Indicated Resolved Time MRSA 06/05/2021 06/05/2021 documented as of this encounter Care Teams Life Insurance Sales Relationship Specialty Start Date End Date Alejandro Blevins MD PCP - General FAMILY PRACTICE 12/10/19 documented as of this encounter
--- OUTSIDE RECORDS SUMMARY | 2024-07-11 05:39 | XMS_ITS | Encounter Summary ---
Author Organization [facility] Address [address] [place] [address]. [place] [address] [place] [address] Care Team Providers Care Sliding Joint Maker Name Role Phone Alejandro Blevins MD Primary Care Provider [phone] Reason for Visit * Reason Comments Follow Up Chronic ITP Encounter Details Date Type Department Care Team (Late st Contact Info) Description 12/06/2023 1:00 PM CDT Office Visit [address] [place] [address] Roberta Alex MD [address] [place] [address] Follow Up (Chronic ITP) Social History Tobacco Use Types Packs/Day Years [...] on file Legal Sex Female 11:30 PM DIRECTOR ADULT Gender Identity Female 11/10/2021 3:09 PM CDT Sexual Orientation Straight 11/10/2021 3: 09 PM CDT documented as of this encounter Last Filed Vital Signs Vital Sign Reading Time Taken Comments Blood Pressure 110/84 12/06/2023 1:09 PM CDT Pulse 84 12/06/2023 1:09 PM CDT Temperature 35.7 ??C (96.3 ??F) 12/06/2023 1:09 PM CD T Respiratory Rate 20 12/06/2023 1:09 PM CDT Oxygen Saturation 98% 12/06/2023 1:09 PM CDT Inhaled Oxygen Concentration - - Weight 80.2 kg (176 lb 12.8 oz) 12/06/2023 1:09 PM CDT Height - - Body Mass Index 31.32 10/28/2022 3:44 PM CDT documented in this encounter Functional Status * RETIRED Are you deaf or do you have serious difficulty hearing Answer Date of Assessment Author Status No 07/30/2020 10:48 PM DIRECTOR ADULT Acti ve * RETIRED Are you blind or do you have serious difficulty seeing, even when wearing glasses? Answer Date of Assessment Author Status No 07/30/2020 10:46 PM DIRECTOR ADULT Acti ve * Do you have serious [...] Leonardo RN Active documented in this encounter Progress Notes * Roberta Alex MD - 12/06/2023 1:00 PM CDT HEMATOLOGY/ONCOLOGY NOTE IDENTIFYING DATA: Hillary Smalls is a 33-year-old female REASON FOR VISIT: Follow Up (Chronic ITP) HEMATOLOGY DIAGNOSIS: 1. Chronic ITP. 2. History of hepatitis C- s/p treatment. 3. 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 Hx of morbidity. Unable to start ASA due to fluctuating thrombocytopenia. No concern for ATE/VTE- no indication forfull dose anticoagulation. 4. History of iron deficiency anemia related to heavy menstrual cycles. Past Treatment: 1. 03/2020: Developed placental abruption, hemorrhagic shock. Platelets improved to normal range with Solu-Medrol, IVIG. 2. 07/2020: IVIG with dexamethasone and slow prednisone taper with good improvement in platelets. 3. 08/2020: Nplate with good improvement in platelet counts, discontinued per patient. 4. 04/2021: Resumed Nplate again due to decreasing platelets. Had only 2 doses and then discontinued. 5. 12/2022: Nplate for 2-3 doses with good improvement in platelet counts to 250K, again discontinued per patient. 6. Intermittent IV Venofer and B12 supplements for anemia. Active Treatment: 11/02/2023: Started on Avatrambopag 20 mg oral daily as platelets were down to 30K and increase menstrual bleeding. INTERVAL HISTORY: Today Hillary returns for a follow-up visit. She started taking avatrombopag last month and has noticed improvement in her energy levels. Her fatigue is better. She is able to perform better at work. She does notice some joint aches and pains but it is not too bad. Her vaginal bleeding has minimally improved. She thinks it could be related to her IUD. She has an appointment coming up with her battery filler in [place]. She has mild allergy related cough. She continues to smoke but is working on quitting. She was able to get payment assistance through her insurance for the medication. REVIEW OF SYSTEMS: 10-point review of systems is negative except as noted per HPI. Reviewed past medical history, surgical history, family history, social history. No changes except as noted. VITALS: No data recorded , Weight: 176 lb 12.8 oz (80.2 kg) , No data recorded , BP: 110/84 , Temp: 96.3 ??F (35.7 ??C) , Pulse: 84 , Resp: 20 PHYSICAL EXAMINATION: CONST: Alert, ECOG 0. RESP: Chest clear to auscultation. Respiration even and unlabored. CV: Heart regular rate and rhythm without murmur. GI: Abdomen soft without mass, tenderness, or hernia. PSYCH: Appropriate mood and affect. NEURO: No speech difficulty. Alert and orientated to person, place, and time. Reviewed pertinent diagnostic tests, lab work, and imaging. These were reviewed with the patient. LABORATORY Lab Results Component Value Date/Time WBC 9.36 11/25/2023 01:41 PM HGB 12.5 11/25/2023 01:41 PM PLT 148 (L) 11/25/2023 01:41 PM NEUC 6.16 11/25/2023 01:41 PM CR 0.75 11/25/2023 01:41 PM K 4.0 11/25/2023 01:41 PM TBIL 0.2 11/25/2023 01:41 PM AST 19 11/25/2023 01:41 PM ALT 20 11/25/2023 01:41 PM ALKP 69 11/25/2023 01:41 PM TSH 1.425 11/25/2023 01:41 PM FERRITIN 31.9 04/19/2023 09:35 AM ASSESSMENT AND PLAN: 1. ITP-: on avatrombopag for 1 month 2. History of iron deficiency anemia -Recent CBC showed excellent response, platelet counts now at 148 K. This is on the lower dose of avatrombopag. She will continue on 20 mg oral daily as she has good tolerance and good improvement inher platelet counts. Liver and renal function also looked good. She is planning to get her toe surgery done when her platelet counts are stable. Will continue to repeat CBC q. monthly. We will see her back in 3 months. She was advised of red flags to watch for. Overall, patient is quite happy with the results so far. RTC in 3 months with repeat CBC, CMP or sooner if needed. The patient verbalized understanding of plan of care and will call us in the interim with any further questions or concerns. Roberta Alex MD CC: Alejandro Blevins MD documented in this encounter Plan of Treatment Upcoming Encounters Date Type Department Care Team (Late st Contact Info) Description 09/25/2024 11:30 AM DIRECTOR ADULT Appointment [place] [id number] [place] [address] Roberta Alex MD [address] [place] [address] 09/25/2024 11:40 AM DIRECTOR ADULT Office Visit [facility] [address] [place] [address] Roberta Alex MD [address] [place] [address] documented as of this encounter Visit Diagnoses Diagnosis Chronic ITP (idiopathic thrombocytopenia) (CMS/HCC HHS/HCC)- Primary Immune thrombocytopenic purpura documented in this encounter Additional Health Concerns Infection Onset Date Last Indicated Resolved Time MRSA 06/05/2021 06/05/2021 documented as of this encounter Care Teams Sliding Joint Maker Relationship Specialty Start Date End Date Alejandro Blevins MD PCP - General FAMILY PRACTICE 12/10/19 documented as of this encounter
--- OUTSIDE RECORDS SUMMARY | 2024-07-11 05:39 | XMS_ITS | Encounter Summary ---
Author Organization [facility] Address [facility] [place] [address] [place] [address] Care Team Providers Care Accredited Farm Manager Name Role Phone lAejandro Blevins MD Primary Care Provider [phone] Encounter Details Date Type Department Care Team (Late st Contact Info) Description 07/05/2023 Orders Only [address] [place] [address] Roberta Alex MD [address] [place] [address] Social History Tobacco Use Types Packs/Day Years Used Date Smoking Tobacco: Every Day Cigarettes Smokeless Tobacco: Never Alcohol Use Standard Drinks/Week Comments Not Currently 0 (1 standard drink = 0.6 oz pur e alcohol) Comments No Sex and Gender Information Value Date Recorded Sex Assigned at Not on file Legal Sex Female 11:30 PM BANKING ANALYST Gender Identity Female 11/10/2021 3:09 PM CDT Sexual Orientation Straight 11/10/2021 3: 09 PM CDT documented as of this encounter Functional Status * RETIRED Are you deaf or do you have serious difficulty hearing Answer Date of Assessment Author Status No 07/30/2020 10:48 PM BANKING ANALYST Acti ve * RETIRED Are you blind or do you have serious difficulty seeing, even when wearing glasses? Answer Date of Assessment Author Status No 07/30/2020 10:46 PM BANKING ANALYST Acti ve * Do you have serious difficulty walking or climbing stairs? Answer Date of Assessment Author Status No 07/30/2020 10:46 PM BANKING ANALYST Bringuet, Nella C, RN Active * Do you have difficulty dressing or bathing? Answer Date of Assessment Author Status No 07/30/2020 10:46 PM BANKING ANALYST Nella Le RN Active * Because of [...] st Contact Info) Description 09/25/2024 11:30 AM BANKING ANALYST Appointment [facility] [address] [place] [address] Roberta Alex MD [address] [place] [address] 09/25/2024 11:40 AM BANKING ANALYST Office Visit [facility] [address] [place] [address] Roberta Alex MD [address] [place] [address] documented as of this encounter Results * (ABNORMAL) COMPREHENSIVE METABOLIC PANEL (10/03/2023 1:07 PM CDT) [facility] SODIUM S/P/B 139 136 - 145 MMOL/L 10/03/2023 1:29 PM CDT [facility] POTASSIUM S/P/B 3.8 3.5 - 5.1 MMOL/L 10/03/2023 1:29 PM CDT [facility] CHLORIDE S/P/B 104 98 - 107 MMOL/L 10/03/2023 1:29 PM CDT [facility] CO2 25.2 21.0 - 32.0 MMOL/L 10/03/2023 1:29 PM [facility] GLU[facility]SE 122(H) 70 - 99 MG/DL 10/03/2023 1:29 PM [facility] Comment: FASTING GLUCOSE 100 TO 125 MG/DL IS CONSISTENT WITH IMPAIRED FASTING GLUCOSE. FASTING GLUCOSE >125 MG/DL IS CONSISTENT WITH DIABETES. RANDOM GLUCOSE >200 MG/DL WITH HYPERGLYCEMIC SYMPTOMS IS CONSISTENT WITH DIABETES. PER ADA GUIDELINES BUN 10 6 - 24 MG/DL 10/03/2023 1:29 PM T [facility] CREATININE S/P/B 0.72 0.55 - 1.02 MG/DL 10/03/2023 1:29 PM [facility] CALCIUM S/P/B 9.1 8.4 - 10.5 MG/DL 10/03/2023 1:29 PM [facility] BILIRUBIN TOTAL S/P/B 0.4 0.2 - 1.0 MG/DL 10/03/2023 1:29 PM [facility] Comment: THIS ASSAY IS NOT RECOMMENDED FOR PATIENTS UNDERGOING TREATMENT WITH ELTROMBOPAG DUE TO THE POTENTIAL FOR FALSELY ELEVATED RESULTS. ALKALINE PHOSPHATASE S/P/B 65 37 - 98 U/L 10/03/2023 1:29 PM [facility] AST 16 15 - 37 U/L 10/03/2023 1:29 PM [facility] ALT 34 14 - 59 U/L 10/03/2023 1:29 PM [facility] TOTAL PROTEIN S/P/B 6.9 6.4 - 8.2 G/DL 10/03/2023 1:29 PM [facility] ALBUMIN S/P/B 3.6 3.4 - 5.0 G/DL 10/03/2023 1:29 PM [facility] ANION GAP 9.8 5.0 - 15.0 MMOL/L 10/03/2023 1:29 PM [facility] OSMOLALITY (CALC) 288 MOSM/KG 024 1:29 PM [facility] Comment:REFERENCE RANGE NOT ESTABLISHED GFR ESTIMATE >90 >89 ML/MIN/1. 73 M2 10/03/2023 1:29 PM CDT [facility] GFR NOTES GFR REFERENCE S: 10/03/2023 1:29 PM CDT [facility] Comment: THE ESTIMATED GFR IS CALCULATED [...] ml/min/1.73 m2 G5,KIDNEY FAILURE: <15 ml/min/1.73 m2 10/03/2023 1:07 PM CDT us [facility] Final Res ult [facility] [address] [id number], * (ABNORMAL) CBC W/DIFF AUTOMATED (10/03/2023 1:07 PM CDT) WBC 10.03 4.00 - 10.80 x10'3/uL 10/03/2023 1:42 PM CDT [facility] RBC 4.71 4.10 - 5.40 x10'6/uL 10/03/2023 1:42 PM CDT [facility] HGB 13.5 12.0 - 16.0 G/DL 10/03/2023 1:42 PM CDT [facility] HCT 42.2 36.0 - 47.0 % 10/03/2023 1:42 PM CDT [facility] MCV 89.6 78.0 - 100.0 FL 10/03/2023 1:42 PM CDT [facility] MCH 28.7 27.0 - 31.0 PG 10/03/2023 1:42 PM CDT [facility] MCHC 32.0(L) 33.0 - 36.0 G/DL 10/03/2023 1:42 PM CDT [facility] RDW 12.5 11.5 - 14.5 % 10/03/2023 1:42 PM CDT [facility] PLT 63(L) 150 - 350 x10'3/uL 10/03/2023 1:42 PM CDT [facility] MPV 14.2(H) 7.4 - 10.4 FL 10/03/2023 1:42 PM CDT [facility] CBC COMMENT NORMAL REFERENCE RANGE NOT ESTABLISHED FOR THE PROPORTIONAL LEUKOCYTE DIFFERENTIAL. 10/03/2023 1:42 PM CDT [facility] NEUTROPHILS % 78.8 % 10/03/2023 1:43 PM CDT [facility] LYMPHOCYTES % 13.1 % 10/03/2023 1:43 PM CDT [facility] MONOCYTES % 3.9 % 10/03/2023 1:43 PM CDT [facility] EOSINOPHILS % 3.4 % 10/03/2023 1:43 PM CDT [facility] BASOPHILS % 0.5 % 10/03/2023 1:43 PM CDT [facility] IMMATURE GRANS % 0.3 % 10/03/19 24 1:43 PM CDT [facility] NRBC 0.0 % 10/03/2023 1:43 PM CDT [facility] ABS. NEUTROPHILS 7.90 1.60 - 8.30 x10'3/uL 10/03/2023 1:49 PM CDT [facility] Comment:CORRECTED ON 10/02 A T 1349: PREVIOUSLY REPORTED 7.91 ABS. LYMPHOCYTES 1.31 0.80 - 4.70 x10'3/uL 10/03/2023 1:43 PM CDT [facility] ABS. MONOCYTES 0.39 0.00 - 1.50 x10'3/uL 10/03/2023 1:43 PM CDT [facility] ABS. EOSINOPHILS 0.34 0.00 - 0.40 x10'3/uL 10/03/2023 1:43 PM CDT [facility] ABS. BASOPHILS 0.05 0.00 - 0.20 x10'3/uL 10/03/2023 1:43 PM CDT [facility] ABS. IMMATURE GRANULOCYTES 0.03 0.00 - 0.03 x10'3/uL 10/03/2023 1:43 PM CDT [facility] ABS. NUCLEATED RBC'S 0.00 0.00 x10'3/uL 10/03/2023 1:43 PM CDT [facility] PLT MORPH. DECREASED 10/03/2023 1:49 PM CDT [facility] RBC MORPHOLOGY NORMAL 10/03/2023 1:49 PM CDT [facility] 10/03/2023 1:07 PM CDT [facility] Edited Re sult - Final [facility] [address] [place] [address], documented in this encounter Visit Diagnoses Diagnosis Iron deficiency anemia due to chronic blood loss- Primary Iron deficiency anemia secondary to blood loss (chronic) documented in this encounter Additional Health Concerns Infection Onset Date Last Indicated Resolved Time MRSA 06/05/2021 06/05/2021 documented as of this encounter Care Teams Accredited Farm Manager Relationship Specialty Start Date End Date Alejandro Blevins MD PCP - General FAMILY PRACTICE 12/10/19 documented as of this encounter
--- OUTSIDE RECORDS SUMMARY | 2024-07-11 05:39 | XMS_ITS | Encounter Summary ---
Author Organization [facility] Address [facility] [place] [address] [place] [address] Care Team Providers Care Branch Lending Manager Name Role Phone Alejandro Blevins MD Primary Care Provider [phone] Encounter Details Date Type Department Care Team (Latest Contact Info) Description 01/17/2024 2:27 PM CDT - 01/17/2024 11:59 PM CDT Hospital Encounter [address] [place] [address] Roberta Alex MD [address] [place] [address] Discharge Disposition: Home or Self Care (Routine Discharge) Social History Tobacco Use Types Packs/Day Years Used Date Smoking Tobacco: Every Day Cigarettes Smokeless Tobacco: Never Alcohol Use Standard Drinks/Week Comments Not Currently 0 (1 standard drink = 0.6 oz pur e alcohol) Comments No Sex and Gender Information Value Date Recorded Sex Assigned at Not on file Legal Sex Female 11:30 PM TILE SETTER SUPERVISOR Gender Identity Female 11/10/2021 3:09 PM CDT Sexual Orientation Straight 11/10/2021 3: 09 PM CDT documented as of this encounter Functional Status * RETIRED Are you deaf or do you have serious difficulty hearing Answer Date of Assessment Author Status No 07/30/2020 10:48 PM TILE SETTER SUPERVISOR Acti ve * RETIRED Are you blind or do you have serious difficulty seeing, even when wearing glasses? Answer Date of Assessment Author Status No 07/30/2020 10:46 PM TILE SETTER SUPERVISOR Acti ve * Do you have serious [...] 6 (six) hours as needed for Pain. omeprazole (PRILOSEC) 20 MG capsuleIndicatio ns:Acute ITP (CMS/HCC HHS/HCC) TAKE 1 CAPSULE BY MOUTH EVERY DAY 90 capsule 1 01/09/2024 SUMAtriptan (IMITREX) 100 MG tablet 03/22/2023 Avatrombopag Maleate (DOPTELET) 20 MG Tab documented as of this encounter Plan of Treatment Upcoming Encounters Date Type Department Care Team (Late st Contact Info) Description 09/25/2024 11:30 AM TILE SETTER SUPERVISOR Appointment [facility] [address] [place] [address] Roberta Alex MD [address] [place] [phone] 09/25/2024 11:40 AM TILE SETTER SUPERVISOR Office Visit [facility] [address] [place] [address] Roberta Alex MD [address] [place] [phone] documented as of this encounter Procedures Procedure Name Priority Date/Time Associated Diagnosis Comments CBC W/DIFF AUTOMATED Routine 01/17/2024 2:35 PM CDT Thrombocytopenia (CMS/HCC) documented in this encounter Results * (ABNORMAL) CBC W/DIFF AUTOMATED (01/17/2024 2:35 PM CDT) WBC 11.56(H) 4.00 - 10.80 x10'3/uL 01/17/2024 3:10 PM CDT [facility] RBC 4.81 4.10 - 5.40 x10'6/uL 01/17/2024 3:10 PM CDT [facility] HGB 13.5 12.0 - 16.0 G/DL 01/17/2024 3:10 PM CDT [facility] HCT 42.2 36.0 - 47.0 % 01/17/2024 3:10 PM CDT [facility] MCV 87.7 78.0 - 100.0 FL 01/17/2024 3:10 PM CDT [facility] MCH 28.1 27.0 - 31.0 PG 01/17/2024 3:10 PM CDT [facility] MCHC 32.0(L) 33.0 - 36.0 G/DL 01/17/2024 3:10 PM CDT [facility] RDW 12.9 11.5 - 14.5 % 01/17/2024 3:10 PM CDT [facility] PLT 191 150 - 350 x10'3/uL 01/17/2024 3:10 PM CDT [facility] MPV 14.0(H) 7.4 - 10.4 FL 01/17/2024 3:10 PM CDT [facility] CBC COMMENT NORMAL REFERENCE RANGE NOT ESTABLISHED FOR THE PROPORTIONAL LEUKOCYTE DIFFERENTIAL. 01/17/2024 3:10 PM CDT [facility] NEUTROPHILS % 79.1 % 01/17/2024 3:13 PM CDT [facility] LYMPHOCYTES % 13.6 % 01/17/2024 3:13 PM CDT [facility] MONOCYTES % 4.5 % 01/17/2024 3:13 PM CDT [facility] EOSINOPHILS % 1.7 % 01/17/2024 3:13 PM CDT [facility] BASOPHILS % 0.8 % 01/17/2024 3:13 PM CDT [facility] IMMATURE GRANS % 0.3 % 01/17/20 3:13 PM CDT [facility] NRBC 0.0 % 01/17/2024 3:13 PM CDT [facility] ABS. NEUTROPHILS 9.15(H) 1.60 - 8.30 x10'3/uL 01/17/2024 3:13 PM CDT [facility] ABS. LYMPHOCYTES 1.57 0.80 - 4.70 x10'3/uL 01/17/2024 3:13 PM CDT [facility] ABS. MONOCYTES 0.52 0.00 - 1.50 x10'3/uL 01/17/2024 3:13 PM CDT [facility] ABS. EOSINOPHILS 0.20 0.00 - 0.40 x10'3/uL 01/17/2024 3:13 PM CDT [facility] ABS. BASOPHILS 0.09 0.00 - 0.20 x10'3/uL 01/17/2024 3:13 PM CDT [facility] ABS. IMMATURE GRANULOCYTES 0.03 0.00 - 0.03 x10'3/uL 01/17/2024 3:13 PM CDT [facility] ABS. NUCLEATED RBC'S 0.00 0.00 - 0.01 x10'3/uL 01/17/2024 3:13 PM CDT [facility] PLT MORPH. NORMAL 01/17/2024 3:13 PM CDT [facility] RBC MORPHOLOGY NORMAL 01/17/2024 3:13 PM CDT [facility] 01/17/2024 2:35 PM CDT us Roberta Alex MD LABORATORY Final Result [facility] [address] [place] [address], documented in this encounter Visit Diagnoses Diagnosis Thrombocytopenia (CMS/HCC) Thrombocytopenia, unspecified documented in this encounter Additional Health Concerns Infection Onset Date Last Indicated Resolved Time MRSA 06/05/2021 06/05/2021 documented as of this encounter Care Teams Branch Lending Manager Relationship Specialty Start Date End Date Alejandro Blevins MD PCP - General FAMILY PRACTICE 12/10/19 documented as of this encounter
--- OUTSIDE RECORDS SUMMARY | 2024-07-11 05:39 | XMS_ITS | Encounter Summary ---
Author Organization [facility] Address [facility] [place] [address] [place] [address] Care Team Providers Care Thermostat Maker Name Role Phone Alejandro Blevins MD Primary Care Provider [phone] Encounter Details Date Type Department Care Team (Late st Contact Info) Description 12/06/2023 Orders Only [address] [place] [address] Carey Pang, APNP [address] [place] [id number] Social History Tobacco Use Types Packs/Day Years Used Date Smoking Tobacco: Every Day Cigarettes Smokeless Tobacco: Never Alcohol Use Standard Drinks/Week Comments Not Currently 0 (1 standard drink = 0.6 oz pur e alcohol) Comments No Sex and Gender Information Value Date Recorded Sex Assigned at Not on file Legal Sex Female 11:30 PM MANAGER OF PHOTOGRAPHY Gender Identity Female 11/10/2021 3:09 PM CDT Sexual Orientation Straight 11/10/2021 3: 09 PM CDT documented as of this encounter Functional Status * RETIRED Are you deaf or do you have serious difficulty hearing Answer Date of Assessment Author Status No 07/30/2020 10:48 PM MANAGER OF PHOTOGRAPHY Acti ve * RETIRED Are you blind or do you have serious difficulty seeing, even when wearing glasses? Answer Date of Assessment Author Status No 07/30/2020 10:46 PM MANAGER OF PHOTOGRAPHY Acti ve * Do you have serious difficulty walking or climbing stairs? Answer Date of Assessment Author Status No 07/30/2020 10:46 PM MANAGER OF PHOTOGRAPHY Nella Le RN Active * Do you have difficulty dressing or bathing? Answer Date of Assessment Author Status No 07/30/2020 10:46 PM MANAGER OF PHOTOGRAPHY Nella Le RN Active * Because of [...] Date Author Status No 07/30/2020 10:46 PM MANAGER OF PHOTOGRAPHY Nella Le RN Active documented in this encounter Plan of Treatment Upcoming Encounters Date Type Department Care Team (Late st Contact Info) Description 09/25/2024 11:30 AM MANAGER OF PHOTOGRAPHY Appointment [facility] [address] [place] [address] Roberta Alex MD [address] [place] [address] 09/25/2024 11:40 AM MANAGER OF PHOTOGRAPHY Office Visit [facility] [place] [address] Roberta Alex MD [address] [place] [address] documented as of this encounter Results * (ABNORMAL) COMPREHENSIVE METABOLIC PANEL (03/19/2024 10:51 AM CDT) [facility] SODIUM S/P/B 138 136 - 145 MMOL/L 03/19/2024 11:12 AM CDT [facility] POTASSIUM S/P/B 3.7 3.5 - 5.1 MMOL/L 03/19/2024 11:12 AM CDT [facility] CHLORIDE S/P/B 104 98 - 107 MMOL/L 03/19/2024 11:12 AM CDT [facility] CO2 26.5 21.0 - 32.0 MMOL/L 03/19/2024 11:12 AM [facility] GLUCOSE 144(H) 70 - 99 MG/DL 03/19/2024 11:12 AM [facility] Comment: FASTING GLUCOSE 100 TO 125 MG/DL IS CONSISTENT WITH IMPAIRED FASTING GLUCOSE. FASTING GLUCOSE >125 MG/DL IS CONSISTENT WITH DIABETES. RANDOM GLUCOSE >200 MG/DL WITH HYPERGLYCEMIC SYMPTOMS IS CONSISTENT WITH DIABETES. PER ADA GUIDELINES BUN 14 6 - 24 MG/DL 03/19/2024 11:12 AM [facility] CREATININE S/P/B 0.85 0.55 - 1.02 MG/DL 03/19/2024 11:12 AM [facility] CALCIUM S/P/B 8.7 8.4 - 10.5 MG/DL 03/19/2024 11:12 AM [facility] BILIRUBIN TOTAL S/P/B 0.3 0.2 - 1.0 MG/DL 03/19/2024 11:12 AM [facility] Comment: THIS ASSAY IS NOT RECOMMENDED FOR PATIENTS UNDERGOING TREATMENT WITH ELTROMBOPAG DUE TO THE POTENTIAL FOR FALSELY ELEVATED RESULTS. ALKALINE PHOSPHATASE S/P/B 83 37 - 98 U/L 03/19/2024 11:12 AM [facility] AST 21 15 - 37 U/L 03/19/2024 11:12 AM [facility] ALT 33 14 - 59 U/L 03/19/2024 11:12 AM [facility] TOTAL PROTEIN S/P/B 7.3 6.4 - 8.2 G/DL 03/19/2024 11:12 AM [facility] ALBUMIN S/P/B 3.8 3.4 - 5.0 G/DL 03/19/2024 11:12 AM [facility] ANION GAP 7.5 5.0 - 15.0 MMOL/L 03/19/2024 11:12 AM [facility] OSMOLALITY (CALC) 289 MOSM/KG 024 11:12 AM [facility] Comment:REFERENCE RANGE NOT ESTABLISHED GFR ESTIMATE >90 >89 ML/MIN/1. 73 M2 03/19/2024 11:12 AM CDT [facility] GFR NOTES GFR REFERENCE S: 03/19/2024 11:12 AM CDT [facility] Comment: THE ESTIMATED GFR IS [...] ml/min/1.73 m2 G5,KIDNEY FAILURE: <15 ml/min/1.73 m2 03/19/2024 10:5 1 AM CDT [facility] Final Res ult [facility] [address] [place] [address], * (ABNORMAL) CBC W/DIFF AUTOMATED (03/19/2024 10:51 AM CDT) WBC 10.37 4.00 - 10.80 x10'3/uL 03/19/2024 11:01 AM CDT [facility] RBC 4.62 4.10 - 5.40 x10'6/uL 03/19/2024 11:01 AM CDT [facility] HGB 13.0 12.0 - 16.0 G/DL 03/19/2024 11:01 AM CDT [facility] HCT 40.5 36.0 - 47.0 % 03/19/2024 11:01 AM CDT [facility] MCV 87.7 78.0 - 100.0 FL 03/19/2024 11:01 AM CDT [facility] MCH 28.1 27.0 - 31.0 PG 03/19/2024 11:01 AM CDT [facility] MCHC 32.1(L) 33.0 - 36.0 G/DL 03/19/2024 11:01 AM CDT [facility] RDW 13.2 11.5 - 14.5 % 03/19/2024 11:01 AM CDT [facility] PLT 144(L) 150 - 350 x10'3/uL 03/19/2024 11:01 AM CDT [facility] MPV 13.8(H) 7.4 - 10.4 FL 03/19/2024 11:01 AM CDT [facility] CBC COMMENT NORMAL REFERENCE RANGE NOT ESTABLISHED FOR THE PROPORTIONAL LEUKOCYTE DIFFERENTIAL. 03/19/2024 11:01 AM CDT [facility] NEUTROPHILS % 72.9 % 03/19/2024 11:01 AM T [facility] LYMPHOCYTES % 16.4 % 03/19/2024 11:01 AM CDT [facility] MONOCYTES % 5.6 % 03/19/2024 11:01 AM CDT [facility] EOSINOPHILS % 4.3 % 03/19/2024 11:01 AM CDT [facility] BASOPHILS % 0.6 % 03/19/2024 11:01 AM CDT [facility] IMMATURE GRANS % 0.2 % 03/19/20 11:01 AM CDT [facility] NRBC 0.0 % 03/19/2024 11:01 AM CDT [facility] ABS. NEUTROPHILS 7.56 1.60 - 8.30 x10'3/uL 03/19/2024 11:01 AM CDT [facility] ABS. LYMPHOCYTES 1.70 0.80 - 4.70 x10'3/uL 03/19/2024 11:01 AM CDT [facility] ABS. MONOCYTES 0.58 0.00 - 1.50 x10'3/uL 03/19/2024 11:01 AM CDT [facility] ABS. EOSINOPHILS 0.45(H) 0.00 - 0.40 x10'3/uL 03/19/2024 11:01 AM CDT [facility] ABS. BASOPHILS 0.06 0.00 - 0.20 x10'3/uL 03/19/2024 11:01 AM CDT [facility] ABS. IMMATURE GRANULOCYTES 0.02 0.00 - 0.03 x10'3/uL 03/19/2024 11:01 AM CDT [facility] ABS. NUCLEATED RBC'S 0.00 0.00 - 0.01 x10'3/uL 03/19/2024 11:01 AM CDT [facility] 03/19/2024 10:5 1 AM CDT us Carey [facility] Final Res ult [facility] [address] [place] [address], documented in this encounter Visit Diagnoses Diagnosis Thrombocytopenia (CMS/HCC)- Primary Thrombocytopenia, unspecified documented in this encounter Additional Health Concerns Infection Onset Date Last Indicated Resolved Time MRSA 06/05/2021 06/05/2021 documented as of this encounter Care Teams Thermostat Maker Relationship Specialty Start Date End Date Alejandro Blevins MD PCP - General FAMILY PRACTICE 12/10/19 documented as of this encounter
--- OUTSIDE RECORDS SUMMARY | 2024-07-11 05:39 | XMS_ITS | Encounter Summary ---
Author Organization [facility] Address [facility] [place] [address] [place] [address] Care Team Providers Care Electrical Lineman Name Role Phone Alejandro Blevins MD Primary Care Provider [phone] Encounter Details Date Type Department Care Team (Late st Contact Info) Description 12/06/2023 Orders Only [address] [place] [address] Roberta Alex MD [address] [place] [address] Social History Tobacco Use Types Packs/Day Years Used Date Smoking Tobacco: Every Day Cigarettes Smokeless Tobacco: Never Alcohol Use Standard Drinks/Week Comments Not Currently 0 (1 standard drink = 0.6 oz pur e alcohol) Comments No Sex and Gender Information Value Date Recorded Sex Assigned at Not on file Legal Sex Female 11:30 PM EMERY GRINDER Gender Identity Female 11/10/2021 3:09 PM CDT Sexual Orientation Straight 11/10/2021 3: 09 PM CDT documented as of this encounter Functional Status * RETIRED Are you deaf or do you have serious difficulty hearing Answer Date of Assessment Author Status No 07/30/2020 10:48 PM EMERY GRINDER Acti ve * RETIRED Are you blind or do you have serious difficulty seeing, even when wearing glasses? Answer Date of Assessment Author Status No 07/30/2020 10:46 PM EMERY GRINDER Acti ve * Do you have serious difficulty walking or climbing stairs? Answer Date of Assessment Author Status No 07/30/2020 10:46 PM EMERY GRINDER Bringuet, Nella C, RN Active * Do you have difficulty dressing or bathing? Answer Date of Assessment Author Status No 07/30/2020 10:46 PM EMERY GRINDER Nella Le RN Active * Because of [...] st Contact Info) Description 09/25/2024 11:30 AM EMERY GRINDER Appointment [facility] [address] [place] [address] Roberta Alex MD [address] [place] [address] 09/25/2024 11:40 AM EMERY GRINDER Office Visit [facility] [address] [place] [address] Roberta Alex MD [address] [place] [address] Scheduled Orders Name Type Priority Associated Diagnoses Orde r Schedule CBC W/DIFF AUTOMATED Lab Routine Thrombocytopenia Every 4 Weeks for 4 Occurrences starting 12/06/2023 until 12/05/2024, 1 completed documented as of this encounter Results * (ABNORMAL) CBC W/DIFF AUTOMATED (01/17/2024 2:35 PM CDT) WBC 11.56(H) 4.00 - 10.80 x10'3/uL 01/17/2024 3:10 PM CDT [facility] RBC 4.81 4.10 - 5.40 x10'6/uL 01/17/2024 3:10 PM CDT [facility] HGB 13.5 12.0 - 16.0 G/DL 01/17/2024 3:10 PM CDT [facility] HCT 42.2 36.0 - 47.0 % 01/17/2024 3:10 PM CDT [facility] MCV 87.7 78.0 - 100.0 FL 01/17/2024 3:10 PM CDT [facility] MCH 28.1 27.0 - 31.0 PG 01/17/2024 3:10 PM CDT [facility] MCHC 32.0(L) 33.0 - 36.0 G/DL 01/17/2024 3:10 PM CDT [facility] RDW 12.9 11.5 - 14.5 % 01/17/2024 3:10 PM CDT [facility] PLT 191 150 - 350 x10'3/uL 01/17/2024 3:10 PM CDT [facility] MPV 14.0(H) 7.4 - 10.4 FL 01/17/2024 3:10 PM CDT [facility] CBC COMMENT NORMAL REFERENCE RANGE NOT ESTABLISHED FOR THE PROPORTIONAL LEUKOCYTE DIFFERENTIAL. 01/17/2024 3:10 PM CDT [facility] NEUTROPHILS % 79.1 % 01/17/2024 3:13 PM CDT [facility] LYMPHOCYTES % 13.6 % 01/17/2024 3:13 PM CDT [facility] MONOCYTES % 4.5 % 01/17/2024 3:13 PM CDT [facility] EOSINOPHILS % 1.7 % 01/17/2024 3:13 PM CDT [facility] BASOPHILS % 0.8 % 01/17/2024 3:13 PM CDT [facility] IMMATURE GRANS % 0.3 % 01/17/20 3:13 PM CDT [facility] NRBC 0.0 % 01/17/2024 3:13 PM CDT [facility] ABS. NEUTROPHILS 9.15(H) 1.60 - 8.30 x10'3/uL 01/17/2024 3:13 PM CDT [facility] ABS. LYMPHOCYTES 1.57 0.80 - 4.70 x10'3/uL 01/17/2024 3:13 PM CDT [facility] ABS. MONOCYTES 0.52 0.00 - 1.50 x10'3/uL 01/17/2024 3:13 PM CDT [facility] ABS. EOSINOPHILS 0.20 0.00 - 0.40 x10'3/uL 01/17/2024 3:13 PM CDT [facility] ABS. BASOPHILS 0.09 0.00 - 0.20 x10'3/uL 01/17/2024 3:13 PM CDT [facility] ABS. IMMATURE GRANULOCYTES 0.03 0.00 - 0.03 x10'3/uL 01/17/2024 3:13 PM CDT [facility] ABS. NUCLEATED RBC'S 0.00 0.00 - 0.01 x10'3/uL 01/17/2024 3:13 PM CDT [facility] PLT MORPH. NORMAL 01/17/2024 3:13 PM CDT [facility] RBC MORPHOLOGY NORMAL 01/17/2024 3:13 PM CDT [facility] 01/17/2024 2:35 PM CDT Roberta Alex MD LABORATORY Final Result [facility] [address] [phone] documented in this encounter Visit Diagnoses Diagnosis Thrombocytopenia (CMS/HCC)- Primary Thrombocytopenia, unspecified documented in this encounter Additional Health Concerns Infection Onset Date Last Indicated Resolved Time MRSA 06/05/2021 06/05/2021 documented as of this encounter Care Teams Electrical Lineman Relationship Specialty Start Date End Date Alejandro Blevins MD PCP - General FAMILY PRACTICE 12/10/19 documented as of this encounter
--- OUTSIDE RECORDS SUMMARY | 2024-07-11 05:39 | XMS_ITS | Encounter Summary ---
Author Organization [facility] Address [facility] access hospital[facility] [place] [place] [address] [place] [address] Care Team Providers Care Early Childhood Education Specialist Name Role Phone Alejandro Blevins MD Primary Care Provider [phone] Encounter Details Date Type Department Care Team (Late st Contact Info) Description 03/06/2024 Orders Only [address] [place] [address] Roberta Alex MD [address] [place] [address] Social History Tobacco Use Types Packs/Day Years Used Date Smoking Tobacco: Every Day Cigarettes Smokeless Tobacco: Never Alcohol Use Standard Drinks/Week Comments Not Currently 0 (1 standard drink = 0.6 oz pur e alcohol) Comments No Sex and Gender Information Value Date Recorded Sex Assigned at Not on file Legal Sex Female 11:30 PM DIRECTOR OF RESOURCE DEVELOPMENT Gender Identity Female 11/10/2021 3:09 PM CDT Sexual Orientation Straight 11/10/2021 3: 09 PM CDT documented as of this encounter Functional Status * RETIRED Are you deaf or do you have serious difficulty hearing Answer Date of Assessment Author Status No 07/30/2020 10:48 PM DIRECTOR OF RESOURCE DEVELOPMENT Acti ve * RETIRED Are you blind or do you have serious difficulty seeing, even when wearing glasses? Answer Date of Assessment Author Status No 07/30/2020 10:46 PM DIRECTOR OF RESOURCE DEVELOPMENT Acti ve * Do you have serious difficulty walking or climbing stairs? Answer Date of Assessment Author Status No 07/30/2020 10:46 PM DIRECTOR OF RESOURCE DEVELOPMENT Bringuet, Nella C, RN Active * Do you have difficulty dressing or bathing? Answer Date of Assessment Author Status No 07/30/2020 10:46 PM DIRECTOR OF RESOURCE DEVELOPMENT Nella Le RN Active * Because of [...] Contact Info) Description 09/25/2024 11:30 AM DIRECTOR OF RESOURCE DEVELOPMENT Appointment [facility] [address] [place] [address] Roberta Alex MD [address] [place] [address] 09/25/2024 11:40 AM DIRECTOR OF RESOURCE DEVELOPMENT Office Visit [facility] [address] [place] [address] Roberta Alex MD [address] [place] [address] documented as of this encounter Results * (ABNORMAL) CBC W/DIFF AUTOMATED (03/06/2024 3:59 PM CDT) [facility] WBC 9.49 4.00 - 10.80 x10'3/uL 03/06/2024 4:21 PM CDT [facility] RBC 4.94 4.10 - 5.40 x10'6/uL 03/06/2024 4:21 PM CD[address] [facility] HGB 13.9 12.0 - 16.0 G/DL 03/06/2024 4:21 PM CD[address] [facility] HCT 42.8 36.0 - 47.0 % 03/06/2024 4:21 PM CD[address] [facility] MCV 86.6 78.0 - 100.0 FL 03/06/2024 4:21 PM CD[address] [facility] MCH 28.1 27.0 - 31.0 PG 03/06/2024 4:21 PM CD[address] [facility] MCHC 32.5(L) 33.0 - 36.0 G/DL 03/06/2024 4:21 PM CD[address] [facility] RDW 13.0 11.5 - 14.5 % 03/06/2024 4:21 PM CDT [facility] PLT 34(L) 150 - 350 x10'3/uL 03/06/2024 4:21 PM CDT [facility] MPV RESULTS NOT AVAILABLE 7.4 - 10.4 FL 03/06/2024 4:21 PM CDT [facility] CBC COMMENT NORMAL REFERENCE RANGE NOT ESTABLISHED FOR THE PROPORTIONAL LEUKOCYTE DIFFERENTIAL. 03/06/2024 4:21 PM CD[address] [facility] NEUTROPHILS % 69.4 % 03/06/2024 4:30 PM CD[address] [facility] LYMPHOCYTES % 20.9 % 03/06/2024 4:30 PM CDT [facility] MONOCYTES % 4.3 % 03/06/2024 4:30 PM CD[address] [facility] EOSINOPHILS % 4.1 % 03/06/2024 4:30 PM CDT [facility] BASOPHILS % 1.1 % 03/06/2024 4:30 PM CD[address] [facility] IMMATURE GRANS % 0.2 % 03/06/20 4:30 PM CD[address] [facility] NRBC 0.0 % 03/06/2024 4:30 PM CD[address] [facility] ABS. NEUTROPHILS 6.59 1.60 - 8.30 x10'3/uL 03/06/2024 4:30 PM CD[address] [facility] ABS. LYMPHOCYTES 1.98 0.80 - 4.70 x10'3/uL 03/06/2024 4:30 PM CD[address] [facility] ABS. MONOCYTES 0.41 0.00 - 1.50 x10'3/uL 03/06/2024 4:30 PM CD[address] [facility] ABS. EOSINOPHILS 0.39 0.00 - 0.40 x10'3/uL 03/06/2024 4:30 PM CD[address] [facility] ABS. BASOPHILS 0.10 0.00 - 0.20 x10'3/uL 03/06/2024 4:30 PM CD[address] [facility] ABS. IMMATURE GRANULOCYTES 0.02 0.00 - 0.03 x10'3/uL 03/06/2024 4:30 PM CD[address] [facility] ABS. NUCLEATED RBC'S 0.00 0.00 - 0.01 x10'3/uL 03/06/2024 4:30 PM CD[address] [facility] PLT MORPH. DECREASED 03/06/2024 4:30 PM CDT [facility] RBC MORPHOLOGY 1+ 03/06/2024 4:30 PM CD[address] 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
--- OUTSIDE RECORDS SUMMARY | 2024-07-11 05:39 | XMS_ITS | Encounter Summary ---
Author Organization [facility] Address [address] [place] [address]. [place], [place] [address] [place] [address] Care Team Providers Care Light Oil Operator Name Role Phone Alejandro Blevins MD Primary Care Provider [phone] Encounter Details Date Type Department Care Team (Latest Contact Info) Description 07/05/2023 Travel Social History Tobacco Use Types Packs/Day Years Used Date Smoking Tobacco: Every Day Cigarettes Smokeless Tobacco: Never Alcohol Use Standard Drinks/Week Comments Not Currently 0 (1 standard drink = 0.6 oz pur e alcohol) Comments No Sex and Gender Information Value Date Recorded Sex Assigned at Not on file Legal Sex Female 11:30 PM SEED CLEANING MANAGER Gender Identity Female 11/10/2021 3:09 PM CDT Sexual Orientation Straight 11/10/2021 3: 09 PM CDT documented as of this encounter Functional Status * RETIRED Are you deaf or do you have serious difficulty hearing Answer Date of Assessment Author Status No 07/30/2020 10:48 PM SEED CLEANING MANAGER Acti ve * RETIRED Are you blind or do you have serious difficulty seeing, even when wearing glasses? Answer Date of Assessment Author Status No 07/30/2020 10:46 PM SEED CLEANING MANAGER Acti ve * Do you have serious difficulty walking or climbing stairs? Answer Date of Assessment Author Status No 07/30/2020 10:46 PM SEED CLEANING MANAGER Nella Le RN Active * Do you have difficulty dressing or bathing? Answer Date of Assessment Author Status No 07/30/2020 10:46 PM SEED CLEANING MANAGER Nella Le RN Active * Because of a physical, mental, or emotional condition, do you have difficulty doing errands alone such as visiting a doctor's office or shopping? Answer Date of Assessment Author Status No 07/30/2020 10:46 PM SEED CLEANING MANAGER Nella Le RN Active documented as of this encounter Mental Status * Because of a physical, mental, or emotional condition, do you have serious difficulty concentrating, remembering, or making decisions? Answer Entry Date Author Status No 07/30/2020 10:46 PM SEED CLEANING MANAGER Nella Le RN Active documented in this encounter Plan of Treatment Upcoming Encounters Date Type Department Care Team (Late st Contact Info) Description 09/25/2024 11:30 AM SEED CLEANING MANAGER Appointment [facility] [address] [facility] [place] [address] Roberta Alex MD [address] [place] [address] 09/25/2024 11:40 AM SEED CLEANING MANAGER Office Visit [facility] [address] [facility] [place] [address] Roberta Alex MD [address] [place] [address] documented as of this encounter Visit Diagnoses Not on filedocumented in this encounter Additional Health Concerns Infection Onset Date Last Indicated Resolved Time MRSA 06/05/2021 06/05/2021 documented as of this encounter Care Teams Light Oil Operator Relationship Specialty Start Date End Date Alejandro Blevins MD PCP - General FAMILY PRACTICE 12/10/19 documented as of this encounter
--- OUTSIDE RECORDS SUMMARY | 2024-07-11 05:39 | XMS_ITS | Encounter Summary ---
Author Organization [facility] Address [facility] access hospital6 [place] [address] [place] [address] Care Team Providers Care Operations/Dispatch Name Role Phone Alejandro Blevins MD Primary Care Provider [phone] Encounter Details Date Type Department Care Team (Latest Contact Info) Description 03/06/2024 3:50 PM CDT - 03/06/2024 11:59 PM CDT Hospital Encounter [address] [place] [address] Roberta Alex MD [address] [place] [address] Discharge Disposition: Home or Self Care (Routine Discharge) Social History Tobacco Use Types Packs/Day Years Used Date Smoking Tobacco: Every Day Cigarettes Smokeless Tobacco: Never Alcohol Use Standard Drinks/Week Comments Not Currently 0 (1 standard drink = 0.6 oz pur e alcohol) Comments No Sex and Gender Information Value Date Recorded Sex Assigned at Not on file Legal Sex Female 11:30 PM TEACHER TUTOR Gender Identity Female 11/10/2021 3:09 PM CDT Sexual Orientation Straight 11/10/2021 3: 09 PM CDT documented as of this encounter Functional Status * RETIRED Are you deaf or do you have serious difficulty hearing Answer Date of Assessment Author Status No 07/30/2020 10:48 PM TEACHER TUTOR Acti ve * RETIRED Are you blind or do you have serious difficulty seeing, even when wearing glasses? Answer Date of Assessment Author Status No 07/30/2020 10:46 PM TEACHER TUTOR Acti ve * Do you have serious [...] 01/09/2024 SUMAtriptan (IMITREX) 100 MG tablet 03/22/2023 DOPTELET 20 MG Tab take 1 tablet by mouth 1 time a day 30 tablet 3 02/07/2024 documented as of this encounter Plan of Treatment Upcoming Encounters Date Type Department Care Team (Late st Contact Info) Description 09/25/2024 11:30 AM TEACHER TUTOR Appointment [facility] [address] [place] [address] Roberta Alex MD [address] [place] [address] 09/25/2024 11:40 AM TEACHER TUTOR Office Visit [facility] [address] [place] [address] Roberta Alex MD [address] [place], [place] [id number] documented as of this encounter Procedures Procedure Name Priority Date/Time Associated Diagnosis Comments CBC W/DIFF AUTOMATED Routine 03/06/2024 3:59 PM CDT Acute ITP (CMS/HCC HHS/HCC) documented in this encounter Results * (ABNORMAL) CBC W/DIFF AUTOMATED (03/06/2024 3:59 PM CDT) WBC 9.49 4.00 - 10.80 x10'3/uL 03/06/2024 4:21 PM CDT [facility] RBC 4.94 4.10 - 5.40 x10'6/uL 03/06/2024 4:21 PM CDT [facility] HGB 13.9 12.0 - 16.0 G/DL 03/06/2024 4:21 PM CDT [facility] HCT 42.8 36.0 - 47.0 % 03/06/2024 4:21 PM CDT [facility] MCV 86.6 78.0 - 100.0 FL 03/06/2024 4:21 PM CDT [facility] MCH 28.1 27.0 - 31.0 PG 03/06/2024 4:21 PM CDT [facility] MCHC 32.5(L) 33.0 - 36.0 G/DL 03/06/2024 4:21 PM CDT [facility] RDW 13.0 11.5 - 14.5 % 03/06/2024 4:21 PM CDT [facility] PLT 34(L) 150 - 350 x10'3/uL 03/06/2024 4:21 PM CDT [facility] MPV RESULTS NOT AVAILABLE 7.4 - 10.4 FL 03/06/2024 4:21 PM CDT [facility] CBC COMMENT NORMAL REFERENCE RANGE NOT ESTABLISHED FOR THE PROPORTIONAL LEUKOCYTE DIFFERENTIAL. 03/06/2024 4:21 PM CDT [facility] NEUTROPHILS % 69.4 % 03/06/2024 4:30 PM CDT [facility] LYMPHOCYTES % 20.9 % 03/06/2024 4:30 PM CDT [facility] MONOCYTES % 4.3 % 03/06/2024 4:30 PM CDT [facility] EOSINOPHILS % 4.1 % 03/06/2024 4:30 PM CDT [facility] BASOPHILS % 1.1 % 03/06/2024 4:30 PM CDT [facility] IMMATURE GRANS % 0.2 % 03/06/20 4:30 PM CDT [facility] NRBC 0.0 % 03/06/2024 4:30 PM CDT [facility] ABS. NEUTROPHILS 6.59 1.60 - 8.30 x10'3/uL 03/06/2024 4:30 PM CDT [facility] ABS. LYMPHOCYTES 1.98 0.80 - 4.70 x10'3/uL 03/06/2024 4:30 PM CDT [facility] ABS. MONOCYTES 0.41 0.00 - 1.50 x10'3/uL 03/06/2024 4:30 PM CDT [facility] ABS. EOSINOPHILS 0.39 0.00 - 0.40 x10'3/uL 03/06/2024 4:30 PM CDT [facility] ABS. BASOPHILS 0.10 0.00 - 0.20 x10'3/uL 03/06/2024 4:30 PM CDT [facility] ABS. IMMATURE GRANULOCYTES 0.02 0.00 - 0.03 x10'3/uL 03/06/2024 4:30 PM CDT [facility] ABS. NUCLEATED RBC'S 0.00 0.00 - 0.01 x10'3/uL 03/06/2024 4:30 PM CDT [facility] PLT MORPH. DECREASED 03/06/2024 4:30 PM CDT [facility] RBC MORPHOLOGY 1+ 03/06/2024 4:30 PM CDT [facility] Comment: ANISOCYTOSIS 1+ POIKILOCYTOSIS 1+ MICROCYTES 03/06/2024 3:59 PM CDT us Roberta Alex MD LABORATORY Final Result [facility] [address] [place] [address], documented in this encounter Visit Diagnoses Diagnosis Acute ITP ([facility]/HCC [facility]/HCC) Immune thrombocytopenic purpura documented in this encounter Additional Health Concerns Infection Onset Date Last Indicated Resolved Time MRSA 06/05/2021 06/05/2021 documented as of this encounter Care Teams Operations/Dispatch Relationship Specialty Start Date End Date Alejandro Blevins MD PCP - General FAMILY PRACTICE 12/10/19 documented as of this encounter
--- OUTSIDE RECORDS SUMMARY | 2024-07-11 05:39 | XMS_ITS | Encounter Summary ---
Author Organization [facility] Address [facility] [place] [address] [place] [address] Care Team Providers Care Pantograph Ii Engraver Name Role Phone Alejandro Blevins MD Primary Care Provider [phone] Reason for Visit * Treatment/Therapy Plan Authorization (Routine) - Closed Specialty Diagnoses / Procedures Referred By Contac t Referred To Contact Diagnoses Chronic ITP (idiopathic thrombocytopenia) ([facility]/HCC [facility]/HCC) Thrombocytopenia ([facility]) Procedures ITP Romi[facility]OStim Roberta Alex MD [address] [place] [address] Phone: tel: fax: [facility] [address] [place] [address] Phone: tel: Referral ID Status Reason Start Date Expiration Date Visits Re quested Visits Authorized [id number] Closed 12/23/2022 03/25/2023 1 1 Encounter Details Date Type Department Care Team (Latest Contact Info) Description 08/12/2023 11:55 AM DEVOPS SOLUTIONS ARCHITECT - 08/12/2023 11:59 PM DEVOPS SOLUTIONS ARCHITECT Hospital Encounter [facility] [address] [place] [address] Roberta Alex MD [address] [place], [place] [address] Discharge Disposition: Home or Self Care (Routine Discharge) Social History Tobacco Use Types Packs/Day Years Used Date Smoking Tobacco: Every Day Cigarettes Smokeless Tobacco: Never Alcohol Use Standard Drinks/Week Comments Not Currently 0 (1 standard drink = 0.6 oz pur e alcohol) Comments No Sex and Gender Information Value Date Recorded Sex Assigned at Not on file Legal Sex Female 11:30 PM DEVOPS SOLUTIONS ARCHITECT Gender Identity Female 11/10/2021 3:09 PM CDT Sexual Orientation Straight 11/10/2021 3 :09 PM CDT documented as of this encounter Functional Status * RETIRED Are you deaf or do you have serious difficulty hearing Answer Date of Assessment Author Status No 07/30/2020 10:48 PM DEVOPS SOLUTIONS ARCHITECT Acti ve * RETIRED Are you blind or do you have serious difficulty seeing, even when wearing glasses? Answer Date of Assessment Author Status No 07/30/2020 10:46 PM DEVOPS SOLUTIONS ARCHITECT Acti ve * Do you have serious [...] SUBLINGUAL ROUTE DIRECTED FOR 30 DAYS. 04/01/2023 escitalopram (LEXAPRO) 10 MG tablet 06/07/2023 hydrOXYzine [...] total) by mouth daily. 30 capsule 1 04/11/2023 documented as of this encounter Plan of Treatment Upcoming Encounters Date Type Department Care Team (Late st Contact Info) Description 09/25/2024 11:30 AM DEVOPS SOLUTIONS ARCHITECT Appointment [facility] [address] Roberta Alex MD [address] [place] [address] 09/25/2024 11:40 AM DEVOPS SOLUTIONS ARCHITECT Office Visit [facility] [address] [place] [address] Roberta Alex MD [address] [place] [address] documented as of this encounter Procedures Procedure Name Priority Date/Time Associated Diagnosis Comments CBC W/DIFF AUTOMATED Routine 08/12/2023 12:02 PM DEVOPS SOLUTIONS ARCHITECT Thrombocytopenia Chronic ITP (idiopathic thrombocytopenia) (CMS/HCC HHS/HCC) documented in this encounter Results * (ABNORMAL) CBC W/DIFF AUTOMATED (08/12/2023 12:02 PM DEVOPS SOLUTIONS ARCHITECT) WBC 6.55 4.00 - 10.80 x10'3/uL 08/12/2023 12:12 PM DEVOPS SOLUTIONS ARCHITECT [facility] RBC 4.48 4.10 - 5.40 x10'6/uL 08/12/2023 12:12 PM DEVOPS SOLUTIONS ARCHITECT [facility] HGB 13.1 12.0 - 16.0 G/DL 08/12/2023 12:12 PM [facility] HCT 40.8 36.0 - 47.0 % 08/12/2023 12:12 PM [facility] MCV 91.1 78.0 - 100.0 FL 08/12/2023 12:12 PM [facility] MCH 29.2 27.0 - 31.0 PG 08/12/2023 12:12 PM [facility] MCHC 32.1(L) 33.0 - 36.0 G/DL 08/12/2023 12:12 PM [facility] RDW 12.9 11.5 - 14.5 % 08/12/2023 12:12 PM [facility] PLT 43(L) 150 - 350 x10'3/uL 08/12/2023 12:12 PM [facility] MPV 15.4(H) 7.4 - 10.4 FL 08/12/2023 12:12 PM [facility] CBC COMMENT NORMAL REFERENCE RANGE NOT ESTABLISHED FOR THE PROPORTIONAL LEUKOCYTE DIFFERENTIAL. 08/12/2023 12:12 PM [facility] NEUTROPHILS % 57.9 % 08/12/2023 12:20 PM [facility] LYMPHOCYTES % 23.7 % 08/12/2023 12:20 PM [facility] MONOCYTES % 7.0 % 08/12/2023 12:20 PM [facility] EOSINOPHILS % 10.2 % 08/12/2023 12:20 PM [facility] BASOPHILS % 0.9 % 08/12/2023 12:20 PM [facility] IMMATURE GRANS % 0.3 % 08/12/19 12:20 PM [facility] NRBC 0.0 % 08/12/2023 12:20 PM [facility] ABS. NEUTROPHILS 3.79 1.60 - 8.30 x10'3/uL 08/12/2023 12:20 PM [facility] ABS. LYMPHOCYTES 1.55 0.80 - 4.70 x10'3/uL 08/12/2023 12:20 PM DEVOPS SOLUTIONS ARCHITECT [facility] ABS. MONOCYTES 0.46 0.00 - 1.50 x10'3/uL 08/12/2023 12:20 PM DEVOPS SOLUTIONS ARCHITECT [facility] ABS. EOSINOPHILS 0.67(H) 0.00 - 0.40 x10'3/uL 08/12/2023 12:20 PM DEVOPS SOLUTIONS ARCHITECT [facility] ABS. BASOPHILS 0.06 0.00 - 0.20 x10'3/uL 08/12/2023 12:20 PM DEVOPS SOLUTIONS ARCHITECT [facility] ABS. IMMATURE GRANULOCYTES 0.02 0.00 - 0.03 x10'3/uL 08/12/2023 12:20 PM DEVOPS SOLUTIONS ARCHITECT [facility] ABS. NUCLEATED RBC'S 0.00 0.00 x10'3/uL 08/12/2023 12:20 PM DEVOPS SOLUTIONS ARCHITECT [facility] PLT MORPH. DECREASED 08/12/2023 12:20 PM DEVOPS SOLUTIONS ARCHITECT [facility] RBC MORPHOLOGY 1+ 08/12/2023 12:20 PM DEVOPS SOLUTIONS ARCHITECT [facility] Comment: ANISOCYTOSIS 1+ POIKILOCYTOSIS 1+ MICROCYTES 08/12/2023 12:0 2 PM DEVOPS SOLUTIONS ARCHITECT Carey TUBBSNP LABORATORY Final Res ult [facility] [address] [place] [address], documented in this encounter Visit Diagnoses Diagnosis Thrombocytopenia (CMS/HCC) Thrombocytopenia, unspecified Chronic ITP (idiopathic thrombocytopenia) (CMS/HCC HHS/HCC) Immune thrombocytopenic purpura documented in this encounter Additional Health Concerns Infection Onset Date Last Indicated Resolved Time MRSA 06/05/2021 06/05/2021 documented as of this encounter Care Teams Pantograph Ii Engraver Relationship Specialty Start Date End Date Alejandro Blevins MD PCP - General FAMILY PRACTICE 12/10/19 documented as of this encounter
--- OUTSIDE RECORDS SUMMARY | 2024-07-11 05:39 | XMS_ITS | Encounter Summary ---
Author Organization [facility] Address [facility] [place] [address] [place] [address] Care Team Providers Care Bus Boy Name Role Phone Alejandro Blevins MD Primary Care Provider [phone] Encounter Details Date Type Department Care Team (Late st Contact Info) Description 03/19/2024 Orders Only [address] [place] [address] Roberta Alex MD [address] [place] [address] Social History Tobacco Use Types Packs/Day Years Used Date Smoking Tobacco: Every Day Cigarettes Smokeless Tobacco: Never Alcohol Use Standard Drinks/Week Comments Not Currently 0 (1 standard drink = 0.6 oz pur e alcohol) Comments No Sex and Gender Information Value Date Recorded Sex Assigned at Not on file Legal Sex Female 11:30 PM GREEN END DEPARTMENT SUPERVISOR Gender Identity Female 11/10/2021 3:09 PM CDT Sexual Orientation Straight 11/10/2021 3: 09 PM CDT documented as of this encounter Functional Status * RETIRED Are you deaf or do you have serious difficulty hearing Answer Date of Assessment Author Status No 07/30/2020 10:48 PM GREEN END DEPARTMENT SUPERVISOR Acti ve * RETIRED Are you blind or do you have serious difficulty seeing, even when wearing glasses? Answer Date of Assessment Author Status No 07/30/2020 10:46 PM GREEN END DEPARTMENT SUPERVISOR Acti ve * Do you have serious difficulty walking or climbing stairs? Answer Date of Assessment Author Status No 07/30/2020 10:46 PM GREEN END DEPARTMENT SUPERVISOR Bringuet, Nella C, RN Active * Do you have difficulty dressing or bathing? Answer Date of Assessment Author Status No 07/30/2020 10:46 PM GREEN END DEPARTMENT SUPERVISOR Nella Le RN Active * Because of [...] st Contact Info) Description 09/25/2024 11:30 AM GREEN END DEPARTMENT SUPERVISOR Appointment [facility] [address] [place] [address] Roberta Alex MD [address] [place] [address] 09/25/2024 11:40 AM GREEN END DEPARTMENT SUPERVISOR Office Visit [facility] [address] [place] [address] Roberta Alex MD [address] [place] [address] Scheduled Orders Name Type Priority Associated Diagnoses Orde r Schedule CBC W/DIFF AUTOMATED Lab Routine Thrombocytopenia Every 4 Weeks for 6 Occurrences starting 03/19/2024 until 03/19/2025, 1 completed documented as of this encounter Results * (ABNORMAL) CBC W/DIFF AUTOMATED (06/19/2024 10:40 AM GREEN END DEPARTMENT SUPERVISOR) WBC 8.99 4.00 - 10.80 x10'3/uL 06/19/2024 10:55 AM GREEN END DEPARTMENT SUPERVISOR [facility] RBC 4.87 4.10 - 5.40 x10'6/uL 06/19/2024 10:55 AM GREEN END DEPARTMENT SUPERVISOR [facility] HGB 14.1 12.0 - 16.0 G/DL 06/19/2024 10:55 AM [facility] HCT 43.5 36.0 - 47.0 % 06/19/2024 10:55 AM [facility] MCV 89.3 78.0 - 100.0 FL 06/19/2024 10:55 AM [facility] MCH 29.0 27.0 - 31.0 PG 06/19/2024 10:55 AM [facility] MCHC 32.4(L) 33.0 - 36.0 G/DL 06/19/2024 10:55 AM [facility] RDW 13.9 11.5 - 14.5 % 06/19/2024 10:55 AM [facility] PLT 197 150 - 350 x10'3/uL 06/19/2024 10:55 AM [facility] MPV 13.0(H) 7.4 - 10.4 FL 06/19/2024 10:55 AM [facility] CBC COMMENT NORMAL REFERENCE RANGE NOT ESTABLISHED FOR THE PROPORTIONAL LEUKOCYTE DIFFERENTIAL. 06/19/2024 10:55 AM [facility] NEUTROPHILS % 60.3 % 06/19/2024 10:55 AM [facility] LYMPHOCYTES % 26.4 % 06/19/2024 10:55 AM [facility] MONOCYTES % 5.9 % 06/19/2024 10:55 AM [facility] EOSINOPHILS % 6.3 % 06/19/2024 10:55 AM [facility] BASOPHILS % 0.9 % 06/19/2024 10:55 AM [facility] IMMATURE GRANS % 0.2 % 06/19/20 10:55 AM [facility] NRBC % 0.0 % 06/19/2024 10:55 AM [facility] ABS. NEUTROPHILS 5.42 1.60 - 8.30 x10'3/uL 06/19/2024 10:55 AM [facility] ABS. LYMPHOCYTES 2.37 0.80 - 4.70 x10'3/uL 06/19/2024 10:55 AM GREEN END DEPARTMENT SUPERVISOR [facility] ABS. MONOCYTES 0.53 0.00 - 1.50 x10'3/uL 06/19/2024 10:55 AM GREEN END DEPARTMENT SUPERVISOR [facility] ABS. EOSINOPHILS 0.57(H) 0.00 - 0.40 x10'3/uL 06/19/2024 10:55 AM GREEN END DEPARTMENT SUPERVISOR [facility] ABS. BASOPHILS 0.08 0.00 - 0.20 x10'3/uL 06/19/2024 10:55 AM GREEN END DEPARTMENT SUPERVISOR [facility] ABS. IMMATURE GRANULOCYTES 0.02 0.00 - 0.03 x10'3/uL 06/19/2024 10:55 AM GREEN END DEPARTMENT SUPERVISOR [facility] ABS. NUCLEATED RBC'S 0.00 0.00 - 0.01 x10'3/uL 06/19/2024 10:55 AM GREEN END DEPARTMENT SUPERVISOR [facility] 06/19/2024 10:4 0 AM GREEN END DEPARTMENT SUPERVISOR Roberta Alex MD LABORATORY Final Result [facility] [address] [place] [address], documented in this encounter Visit Diagnoses Diagnosis Thrombocytopenia (CMS/HCC)- Primary Thrombocytopenia, unspecified documented in this encounter Additional Health Concerns Infection Onset Date Last Indicated Resolved Time MRSA 06/05/2021 06/05/2021 documented as of this encounter Care Teams Bus Boy Relationship Specialty Start Date End Date Alejandro Blevins MD PCP - General FAMILY PRACTICE 12/10/19 documented as of this encounter
--- OUTSIDE RECORDS SUMMARY | 2024-07-11 05:39 | XMS_ITS | Encounter Summary ---
Author Organization [facility] Address Formerly [facility], [facility] [place] [address] [place] [address] Care Team Providers Care Reinforced Ironworker Name Role Phone Alejandro Blevins MD Primary Care Provider [phone] Encounter Details Date Type Department Care Team (Latest Contact Info) Description 07/05/2023 2:30 PM RETAIL PHARMACY MANAGER - 07/05/2023 11:59 PM RETAIL PHARMACY MANAGER Hospital Encounter [address] [place] [address] Roberta Alex MD [address] [place] [address] Discharge Disposition: Home or Self Care (Routine Discharge) Social History Tobacco Use Types Packs/Day Years Used Date Smoking Tobacco: Every Day Cigarettes Smokeless Tobacco: Never Alcohol Use Standard Drinks/Week Comments Not Currently 0 (1 standard drink = 0.6 oz pur e alcohol) Comments No Sex and Gender Information Value Date Recorded Sex Assigned at Not on file Legal Sex Female 11:30 PM RETAIL PHARMACY MANAGER Gender Identity Female 11/10/2021 3:09 PM CDT Sexual Orientation Straight 11/10/2021 3: 09 PM CDT documented as of this encounter Functional Status * RETIRED Are you deaf or do you have serious difficulty hearing Answer Date of Assessment Author Status No 07/30/2020 10:48 PM RETAIL PHARMACY MANAGER Acti ve * RETIRED Are you blind or do you have serious difficulty seeing, even when wearing glasses? Answer Date of Assessment Author Status No 07/30/2020 10:46 PM RETAIL PHARMACY MANAGER Acti ve * Do you have [...] by mouth daily. 30 capsule 1 04/11/2023 4 documented as of this encounter Plan of Treatment Upcoming Encounters Date Type Department Care Team (Late st Contact Info) Description 09/25/2024 11:30 AM RETAIL PHARMACY MANAGER Appointment [facility] [address] [place] [address] Roberta Alex MD [address] [place] [address] 09/25/2024 11:40 AM RETAIL PHARMACY MANAGER Office Visit [facility] [place] [address] Roberta Alex MD [address] [place] [address] documented as of this encounter Procedures Procedure Name Priority Date/Time Associated Diagnosis Comments COMPREHENSIVE METABOLIC PANEL Routine 07/05/2023 2:43 PM RETAIL PHARMACY MANAGER Chronic ITP (idiopathic thrombocytopenia) ([facility]CC HHS/HCC) CBC W/DIFF AUTOMATED Routine 07/05/2023 2:43 PM RETAIL PHARMACY MANAGER Chronic ITP (idiopathic thrombocytopenia) ([facility] HHS/HCC) documented in this encounter Results * COMPREHENSIVE METABOLIC PANEL (07/05/2023 2:43 PM RETAIL PHARMACY MANAGER) SODIUM S/P/B 140 136 - 145 MMOL/L 07/05/2023 3:39 PM [facility] POTASSIUM S/P/B 3.9 3.5 - 5.1 MMOL/L 07/05/2023 3:39 PM [facility] CHLORIDE S/P/B 105 98 - 107 MMOL/L 07/05/2023 3:39 PM [facility] CO2 25.7 21.0 - 32.0 MMOL/L 07/05/2023 3:39 PM [facility] GLUCOSE 91 70 - 99 MG/DL 07/05/2023 3:39 PM [facility] Comment: MILD LIPEMIA. RESULT MAY BE AFFECTED. FASTING GLUCOSE 100 TO 125 MG/DL IS CONSISTENT WITH IMPAIRED FASTING GLUCOSE. FASTING GLUCOSE >125 MG/DL IS CONSISTENT WITH DIABETES. RANDOM GLUCOSE >200 MG/DL WITH HYPERGLYCEMIC SYMPTOMS IS CONSISTENT WITH DIABETES. PER ADA GUIDELINES BUN 16 6 - 24 MG/DL 07/05/2023 3:39 PM [facility] CREATININE S/P/B 0.86 0.55 - 1.02 MG/DL 07/05/2023 3:39 PM [facility] CALCIUM S/P/B 8.5 8.4 - 10.5 MG/DL 07/05/2023 3:39 PM [facility] BILIRUBIN TOTAL S/P/B 0.2 0.2 - 1.0 MG/DL 07/05/2023 3:39 PM [facility] Comment: THIS ASSAY IS NOT RECOMMENDED FOR PATIENTS UNDERGOING TREATMENT WITH ELTROMBOPAG DUE TO THE POTENTIAL FOR FALSELY ELEVATED RESULTS. ALKALINE PHOSPHATASE S/P/B 70 37 - 98 U/L 07/05/2023 3:39 PM [facility] AST 17 15 - 37 U/L 07/05/2023 3:39 PM [facility] ALT 24 14 - 59 U/L 07/05/2023 3:39 PM [facility] TOTAL PROTEIN S/P/B 6.9 6.4 - 8.2 G/DL 07/05/2023 3:39 PM [facility] ALBUMIN S/P/B 3.5 3.4 - 5.0 G/DL 07/05/2023 3:39 PM [facility] ANION GAP 9.3 5.0 - 15.0 MMOL/L 07/05/2023 3:39 PM [facility] OSMOLALITY (CALC) 291 MOSM/KG 023 3:39 PM [facility] Comment:REFERENCE RANGE NOT ESTABLISHED GFR ESTIMATE >90 >89 ML/MIN/1. 73 M2 07/05/2023 3:39 PM [facility] GFR NOTES GFR REFERENCE S: 07/05/2023 3:39 PM [facility] Comment: THE ESTIMATED GFR IS [...] ml/min/1.73 m2 G5,KIDNEY FAILURE: <15 ml/min/1.73 m2 07/05/2023 2:43 PM RETAIL PHARMACY MANAGER us Roberta Alex MD LABORATORY Final Result [facility] [address] [place] [address], * (ABNORMAL) CBC W/DIFF AUTOMATED (07/05/2023 2:43 PM RETAIL PHARMACY MANAGER) WBC 9.85 4.00 - 10.80 x10'3/uL 07/05/2023 3:09 PM RETAIL PHARMACY MANAGER [facility] RBC 4.63 4.10 - 5.40 x10'6/uL 07/05/2023 3:09 PM [facility] HGB 13.5 12.0 - 16.0 G/DL 07/05/2023 3:09 PM RETAIL PHARMACY MANAGER [facility] HCT 42.4 36.0 - 47.0 % 07/05/2023 3:09 PM [facility] MCV 91.6 78.0 - 100.0 FL 07/05/2023 3:09 PM RETAIL PHARMACY MANAGER [facility] MCH 29.2 27.0 - 31.0 PG 07/05/2023 3:09 PM RETAIL PHARMACY MANAGER [facility] MCHC 31.8(L) 33.0 - 36.0 G/DL 07/05/2023 3:09 PM [facility] RDW 12.9 11.5 - 14.5 % 07/05/2023 3:09 PM [facility] PLT 39(L) 150 - 350 x10'3/uL 07/05/2023 3:09 PM [facility] MPV RESULTS NOT AVAILABLE 7.4 - 10.4 FL 07/05/2023 3:09 PM [facility] CBC COMMENT NORMAL REFERENCE RANGE NOT ESTABLISHED FOR THE PROPORTIONAL LEUKOCYTE DIFFERENTIAL. 07/05/2023 3:09 PM RETAIL PHARMACY MANAGER [facility] NEUTROPHILS % 66.3 % 07/05/2023 3:20 PM [facility] LYMPHOCYTES % 18.0 % 07/05/2023 3:20 PM RETAIL PHARMACY MANAGER [facility] MONOCYTES % 5.5 % 07/05/2023 3:20 PM RETAIL PHARMACY MANAGER [facility] EOSINOPHILS % 9.0 % 07/05/2023 3:20 PM RETAIL PHARMACY MANAGER [facility] BASOPHILS % 0.8 % 07/05/2023 3:20 PM [facility] IMMATURE GRANS % 0.4 % 07/05/20 3:20 PM [facility] NRBC 0.0 % 07/05/2023 3:20 PM [facility] ABS. NEUTROPHILS 6.53 1.60 - 8.30 x10'3/uL 07/05/2023 3:20 PM [facility] ABS. LYMPHOCYTES 1.77 0.80 - 4.70 x10'3/uL 07/05/2023 3:20 PM [facility] ABS. MONOCYTES 0.54 0.00 - 1.50 x10'3/uL 07/05/2023 3:20 PM [facility] ABS. EOSINOPHILS 0.89(H) 0.00 - 0.40 x10'3/uL 07/05/2023 3:20 PM [facility] ABS. BASOPHILS 0.08 0.00 - 0.20 x10'3/uL 07/05/2023 3:20 PM [facility] ABS. IMMATURE GRANULOCYTES 0.04(H) 0.00 - 0.03 x10'3/uL 07/05/2023 3:20 PM [facility] ABS. NUCLEATED RBC'S 0.00 0.00 x10'3/uL 07/05/2023 3:20 PM [facility] PLT MORPH. DECREASED 07/05/2023 3:20 PM RETAIL PHARMACY MANAGER [facility] RBC MORPHOLOGY 1+ 07/05/2023 3:20 PM RETAIL PHARMACY MANAGER [facility] Comment:ANISOCYTOSIS 07/05/2023 2:43 PM RETAIL PHARMACY MANAGER Roberta Alex MD LABORATORY Final Result [facility] [address] [place] [address], documented in this encounter Visit Diagnoses Diagnosis Chronic ITP (idiopathic thrombocytopenia) ([facility]/HCC [facility]/HCC) Immune thrombocytopenic purpura documented in this encounter Additional Health Concerns Infection Onset Date Last Indicated Resolved Time MRSA 06/05/2021 06/05/2021 documented as of this encounter Care Teams Reinforced Ironworker Relationship Specialty Start Date End Date Alejandro Blevins MD PCP - General FAMILY PRACTICE 12/10/19 documented as of this encounter
--- OUTSIDE RECORDS SUMMARY | 2024-07-11 05:39 | XMS_ITS | Encounter Summary ---
Author Organization [facility] Address [address] [place] [address]. [place] [address] [place] [address] Care Team Providers Care Deputy Chief Magistrate Name Role Phone Alejandro Blevins MD Primary Care Provider Reason for Visit * Reason Comments Lab Results Follow Up Chronic ITP Encounter Details Date Type Department Care Team (Late st Contact Info) Description 03/19/2024 11:30 AM CDT Office Visit [address] [place] [address] Carey Pang, APNP [address] [place] [id number] Lab Results; Follow Up (Chronic ITP) Social History Tobacco Use Types Packs/Day Years Used Date Smoking Tobacco: Every Day Cigarettes Smokeless Tobacco: Never Alcohol Use Standard Drinks/Week Comments Not Currently 0 (1 standard drink = 0.6 oz pur e alcohol) Comments No Sex and Gender Information Value Date Recorded Sex Assigned at Not on file Legal Sex Female 11:30 PM SKIVER MACHINE OPERATOR Gender Identity Female 11/10/2021 3:09 PM CDT Sexual Orientation Straight 11/10/2021 3: 09 PM CDT documented as of this encounter Last Filed Vital Signs Vital Sign Reading Time Taken Comments Blood Pressure 131/91 03/19/2024 11:29 AM CDT Pulse 66 03/19/2024 11:29 AM CDT Temperature 36.2 ??C (97.1 ??F) 03/19/2024 11:29 AM C DT Respiratory Rate 18 03/19/2024 11:29 AM CDT Oxygen Saturation 98% 03/19/2024 11:29 AM CDT Inhaled Oxygen Concentration - - Weight 78.5 kg (173 lb 1 oz) 03/19/2024 11:29 AM CDT Height - - Body Mass Index 30.66 10/28/2022 3:44 PM CDT documented in this encounter Functional Status * RETIRED Are you deaf or do you have serious difficulty hearing Answer Date of Assessment Author Status No 07/30/2020 10:48 PM SKIVER MACHINE OPERATOR Acti ve * RETIRED Are you blind or do you have serious difficulty seeing, even when wearing glasses? Answer Date of Assessment Author Status No 07/30/2020 10:46 PM SKIVER MACHINE OPERATOR Acti ve * Do you have [...] documented in this encounter Progress Notes * EMANUEL Johansen - 03/19/2024 11:30 AM CDT HEMATOLOGY/ONCOLOGY NOTE IDENTIFYING DATA: Hillary Smalls is a 33-year-old female REASON FOR VISIT: Lab Results and Follow Up (Chronic ITP) HEMATOLOGY DIAGNOSIS: 1. [...] 30K and increase menstrual bleeding. INTERVAL HISTORY: Patient returns today for routine 3-month follow-up for history of chronic ITP currently treated with Avatrambopag 20 mg oral daily. CBC has been checked monthly. Since initiating treatment, she has had great improvement in her platelet count, today 144, a few weeks ago it had dropped back down to 34 but she had admitted she got very busy with life and stresses going on and had missed 2 doses. However, she is going to start taking the medicine at nighttime as she feels she tolerates it better in the evening. During the day it did make her sick occasionally and cause some migraines which then would cause vomiting. So she is unsure if a few of the doses were vomited up and never fully absorbed. She also reports some mild swelling along her left jawline. She is wondering if she can get an antibiotic until she can be seen by her dentist. She reports she has had previous tooth extractions in that area quite sometime ago. She does not notice any abnormalities within her mouth. REVIEW OF SYSTEMS: 10-point review of systems is negative except as noted per HPI. Reviewed past medical history, surgical history, family history, social history. No changes except as noted. VITALS: No data recorded , Weight: 173 lb 1 oz (78.5 kg) , No data recorded , BP: (!) 131/91 , Temp: 97.1 ??F (36.2 ??C) , Pulse: 66 , Resp: 18 PHYSICAL EXAMINATION: CONST: Alert, ECOG 0. ENT: There is some noticeable mild swelling along her left jawline. No lymph nodes palpated. I do not note any abscesses within the mouth. RESP: Chest clear to auscultation. Respiration even and unlabored. CV: Heart regular rate and rhythm without murmur. GI: Abdomen soft without mass, tenderness, or hernia. PSYCH: Appropriate mood and affect. NEURO: No speech difficulty. Alert and orientated to person, place, and time. Reviewed pertinent diagnostic tests, lab work, and imaging. These were reviewed with the patient. LABORATORY Lab Results Component Value Date/Time WBC 10.37 03/19/2024 10:51 AM HGB 13.0 03/19/2024 10:51 AM PLT 144 (L) 03/19/2024 10:51 AM NEUC 7.56 03/19/2024 10:51 AM CR 0.85 03/19/2024 10:51 AM K 3.7 03/19/2024 10:51 AM TBIL 0.3 03/19/2024 10:51 AM AST 21 03/19/2024 10:51 AM ALT 33 03/19/2024 10:51 AM ALKP 83 03/19/2024 10:51 AM TSH 1.425 11/25/2023 01:41 PM FERRITIN 31.9 04/19/2023 09:35 AM ASSESSMENT AND PLAN: 1. ITP-: on avatrombopag for 1 month 2. History of iron deficiency anemia I reviewed with the patient her evaluation, blood work, and treatment plan. She had been started onthe lower dose of avatrombopag 20 mg daily and had good tolerance and good improvement in her platelet count with platelet count around 148. A few weeks ago, CBC was rechecked and had shown platelet count to drop to 34. Dr. Alex had concerns for compliance versus treatment failure. Patient admitted she had missed a few doses. She has been educated strongly that her disease can be treatable and curable with current treatment but requires compliance in order to do so. Platelet count today is now improved again at 144. Therefore, no changes will need to be made. It appears drop in platelet count was more so related to noncompliance versus treatment failure. She is planning to take the medication at nighttime since taking it during the daytime occasionally makes her sick and vomit, she is unsure if a few other dosages were not fully absorbed before becoming sick. CBC is remarkable for improvement in platelet count, now 144, up from 34 a few weeks ago. CMP is remarkable for glucose 144, otherwise stable. I am willing to send in Augmentin 875 mg twice daily x 7 to 10 days and she is planning to follow-up with both dentist and PCP. We will continue monthly CBC and she will return to see Dr. Alex in 3 months for follow-up. The patient verbalized understanding of plan of care and will call us in the interim with any further questions or concerns. EMANUEL Johansen CC: Alejandro Blevins MD documented in this encounter Plan of Treatment Upcoming Encounters Date Type Department Care Team (Late st Contact Info) Description 09/25/2024 11:30 AM SKIVER MACHINE OPERATOR Appointment [facility] [address] [facility] [address] Roberta Alex MD [address] [place] [address] 09/25/2024 11:40 AM SKIVER MACHINE OPERATOR Office Visit [facility] [address] [facility] [place] [address] Roberta Alex MD [address] [place] [id number] documented as of this encounter Visit Diagnoses Diagnosis Iron deficiency anemia secondary to inadequate dietary iron intake- Primary Chronic ITP (idiopathic thrombocytopenia) ([facility]/HCC [facility]) Immune thrombocytopenic purpura documented in this encounter Additional Health Concerns Infection Onset Date Last Indicated Resolved Time MRSA 06/05/2021 06/05/2021 documented as of this encounter Care Teams Deputy Chief Magistrate Relationship Specialty Start Date End Date Alejandro Blevins MD PCP - General FAMILY PRACTICE 12/10/19 documented as of this encounter
--- OUTSIDE RECORDS SUMMARY | 2024-07-11 05:39 | XMS_ITS | Encounter Summary ---
Author Organization [facility] Address [address] [place] [address]. [place] [address] [place] [address] Care Team Providers Care Chemical Engraver Name Role Phone Alejandro Blevins MD Primary Care Provider [phone] Encounter Details Date Type Department Care Team (Latest Contact Info) Description 11/25/2023 1:23 PM CDT Hospital Encounter [facility] [address] [place] [address] Pat Moya, DIRECTOR GLOBAL INTELLIGENCE [address] [place] [address] Discharge Disposition: Home or Self Care (Routine Discharge) Social History Tobacco Use Types Packs/Day Years Used Date Smoking Tobacco: Every Day Cigarettes Smokeless Tobacco: Never Alcohol Use Standard Drinks/Week Comments Not Currently 0 (1 standard drink = 0.6 oz pur e alcohol) Comments No Sex and Gender Information Value Date Recorded Sex Assigned at Not on file Legal Sex Female 11:30 PM SALESPERSON STEREO EQUIPMENT Gender Identity Female 11/10/2021 3:09 PM CDT Sexual Orientation Straight 11/10/2021 3: 09 PM CDT documented as of this encounter Functional Status * RETIRED Are you deaf or do you have serious difficulty hearing Answer Date of Assessment Author Status No 07/30/2020 10:48 PM SALESPERSON STEREO EQUIPMENT Acti ve * RETIRED Are you blind or do you have serious difficulty seeing, even when wearing glasses? Answer Date of Assessment Author Status No 07/30/2020 10:46 PM SALESPERSON STEREO EQUIPMENT Acti ve * Do you have serious [...] st Contact Info) Description 09/25/2024 11:30 AM SALESPERSON STEREO EQUIPMENT Appointment [facility] [address] [place] [address] [place] [address] Roberta Alex MD [address] [place] [address] 09/25/2024 11:40 AM SALESPERSON STEREO EQUIPMENT Office Visit [facility] [address] [place] [address] Roberta Alex MD [address] [place], [place] [id number] documented as of this encounter Procedures Procedure Name Priority Date/Time Associated Diagnosis Comments HEMOGLOBIN, GLYCOSYLATED Routine 11/25/2023 1:41 PM CDT Other half-way (current) drug therapy COMPREHENSIVE METABOLIC PANEL Routine 11/25/2023 1:41 PM CDT Other half-way (current) drug therapy LIPID PANEL Routine 11/25/2023 1:41 PM CDT Other half-way (current) drug therapy THYROID STIM HORMONE TSH Routine 11/25/2023 1:41 PM CDT Other exterminator termite (current) drug therapy documented in this encounter Results * ASSAY OF THYROID STIMULATING HORMONE TSH (11/25/2023 1:41 PM CDT) TSH 1.425 0.358 - 3.740 uIU/ML 11/25/2023 2:20 PM CDT [facility] Comment: ASSAY PERFORMED BY CHEMILUMINESCENT IMMUNOASSAY METHODOLOGY USING SIEMENS DIMENSION REAGENT. PATIENT RESULTS DETERMINED BY ASSAYS FROM DIFFERENT MANUFACTURERS AND/OR BY DIFFERENT METHODS MAY NOT BE COMPARABLE. 11/25/2023 1:41 PM CDT Pat Moya NP LABORATORY Final Result [facility] [address] [place] [address], * (ABNORMAL) LIPID PANEL (11/25/2023 1:41 PM CDT) CHOLESTEROL 244 MG/DL 11/26/2023 4:45 PM CDT [facility] Comment:HIGH: > OR = 240 TRIGLYCERIDES 241 MG/DL 11/26/2023 4:45 PM CDT [facility] Comment:200-499 HIGH HDL 32(L) >49 MG/DL 11/26/2023 4:45 PM CDT [facility] LDL-C 164 MG/DL 11/26/2023 4:45 PM CDT [facility] Comment:160-189 HIGH VLDL CALCULATION 48 MG/DL 11/26/19 4:45 PM CDT [facility] Comment:REFERENCE RANGE NOT ESTABLISHED CHOL/HDL RATIO 7.6 11/26/2023 4:45 PM CDT [facility] Comment:REFERENCE RANGE NOT ESTABLISHED LDL/HDL 5.1 11/26/2023 4:45 PM CDT [facility] Comment:REFERENCE RANGE NOT ESTABLISHED NON HDL CHOLESTEROL 212 MG/DL 11/26/2023 4:45 PM CDT [facility] Comment:REFERENCE RANGE NOT ESTABLISHED 11/25/2023 1:41 PM CDT Pat Moya NP LABORATORY Final Result [facility] [address] [place] [address], [place] [phone] * HEMOGLOBIN, GLYCOSYLATED (11/25/2023 1:41 PM CDT) Pathologist [facility] HGB A1C 5.4 <5.7 % 11/26/2023 4:31 PM CDT [facility] ESTIMATED AVG GLUCOSE 108 74 - 114 MG/DL 11/26/2023 4:31 PM CDT [facility] 11/25/2023 1:41 PM CDT Pat Moya NP LABORATORY Final Result [facility] [address] [place] [address], [id number] * COMPREHENSIVE METABOLIC PANEL (11/25/2023 1:41 PM CDT) SODIUM S/P/B 140 136 - 145 MMOL/L 11/25/2023 2:20 PM CDT [facility] POTASSIUM S/P/B 4.0 3.5 - 5.1 MMOL/L 11/25/2023 2:20 PM CDT [facility] CHLORIDE S/P/B 105 98 - 107 MMOL/L 11/25/2023 2:20 PM CDT [facility] CO2 24.9 21.0 - 32.0 MMOL/L 11/25/2023 2:20 PM CDT [facility] GLUCOSE 82 70 - 99 MG/DL 11/25/2023 2:20 PM CDT [facility] Comment: FASTING GLUCOSE 100 TO 125 MG/DL IS CONSISTENT WITH IMPAIRED FASTING GLUCOSE. FASTING GLUCOSE >125 MG/DL IS CONSISTENT WITH DIABETES. RANDOM GLUCOSE >200 MG/DL WITH HYPERGLYCEMIC SYMPTOMS IS CONSISTENT WITH DIABETES. PER ADA GUIDELINES BUN 14 6 - 24 MG/DL 11/25/2023 2:20 PM CDT [facility] CREATININE S/P/B 0.75 0.55 - 1.02 MG/DL 11/25/2023 2:20 PM CDT [facility] CALCIUM S/P/B 8.6 8.4 - 10.5 MG/DL 11/25/2023 2:20 PM CDT [facility] BILIRUBIN TOTAL S/P/B 0.2 0.2 - 1.0 MG/DL 11/25/2023 2:20 PM CDT [facility] Comment: THIS ASSAY IS NOT RECOMMENDED FOR PATIENTS UNDERGOING TREATMENT WITH ELTROMBOPAG DUE TO THE POTENTIAL FOR FALSELY ELEVATED RESULTS. ALKALINE PHOSPHATASE S/P/B 69 37 - 98 U/L 11/25/2023 2:20 PM CDT [facility] AST 19 15 - 37 U/L 11/25/2023 2:20 PM CDT [facility] ALT 20 14 - 59 U/L 11/25/2023 2:20 PM CDT [facility] TOTAL PROTEIN S/P/B 6.9 6.4 - 8.2 G/DL 11/25/2023 2:20 PM CDT [facility] ALBUMIN S/P/B 3.5 3.4 - 5.0 G/DL 11/25/2023 2:20 PM CDT [facility] ANION GAP 10.1 5.0 - 15.0 MMOL/L 11/25/2023 2:20 PM CDT [facility] OSMOLALITY (CALC) 290 MOSM/KG 024 2:20 PM CDT [facility] Comment:REFERENCE RANGE NOT ESTABLISHED GFR ESTIMATE >90 >89 ML/MIN/1. 73 M2 11/25/2023 2:20 PM CDT [facility] GFR NOTES GFR REFERENCE S: 11/25/2023 2:20 PM CDT [facility] Comment: THE ESTIMATED GFR IS CALCULATED [...] us Pat Moya NP LABORATORY Final Result [facility] [address] [place] [address] documented in this encounter Visit Diagnoses Diagnosis Other exterminator termite (current) drug therapy documented in this encounter Additional Health Concerns Infection Onset Date Last Indicated Resolved Time MRSA 06/05/2021 06/05/2021 documented as of this encounter Care Teams Chemical Engraver Relationship Specialty Start Date End Date Alejandro Blevins MD PCP - General FAMILY PRACTICE 12/10/19 documented as of this encounter
--- OUTSIDE RECORDS SUMMARY | 2024-07-11 05:39 | XMS_ITS | Encounter Summary ---
Author Organization [facility] Address [address] [place] [address]. [place] [address] [place] [address] Care Team Providers Care Domestic Travel Consultant Name Role Phone Alejandro Blevins MD Primary Care Provider [phone] Reason for Visit * Reason Onset Date Comments Medication Information 10/17/2023 Encounter Details Date Type Department Care Team ([facility] Contact Info) Description 10/17/[address] [place] [address] Roberta Alex MD [address] [place] [address] Medication Information Social History Tobacco Use Types Packs/Day Years Used Date Smoking Tobacco: Every Day Cigarettes Smokeless Tobacco: Never Alcohol Use Standard Drinks/Week Comments Not Currently 0 (1 standard drink = 0.6 oz pur e alcohol) Comments No Sex and Gender Information Value Date Recorded Sex Assigned at Not on file Legal Sex Female 11:30 PM MORTGAGE SPECIALIST Gender Identity Female 11/10/2021 3:09 PM CDT Sexual Orientation Straight 11/10/2021 3: 09 PM CDT documented as of this encounter Functional Status * RETIRED Are you deaf or do you have serious difficulty hearing Answer Date of Assessment Author Status No 07/30/2020 10:48 PM MORTGAGE SPECIALIST Acti ve * RETIRED Are you blind or do you have serious difficulty seeing, even when wearing glasses? Answer Date of Assessment Author Status No 07/30/2020 10:46 PM MORTGAGE SPECIALIST Acti ve * Do you have serious [...] documented in this encounter Progress Notes * Betty Perez MA - 10/17/2023 1:04 PM CDT Due to insurance denying Doptelet per Dr. Alex we will continue to watch counts for now and repeat labs as we have been and if and when counts go below 30k we will then send request back to insurance and start on medication at that time. Attempted to let patient know however, voicemail is full at this time. documented in this encounter Plan of Treatment Upcoming Encounters Date Type Department Care Team (Late st Contact Info) Description 09/25/2024 11:30 AM MORTGAGE SPECIALIST Appointment [facility] [place] [address] [address] Roberta Alex MD [address] [place] [address] 09/25/2024 11:40 AM MORTGAGE SPECIALIST Office Visit [facility] [place] [address] Roberta Alex MD [address] [place] [address] documented as of this encounter Visit Diagnoses Not on filedocumented in this encounter Additional Health Concerns Infection Onset Date Last Indicated Resolved Time MRSA 06/05/2021 06/05/2021 documented as of this encounter Care Teams Domestic Travel Consultant Relationship Specialty Start Date End Date Alejandro Blevins MD PCP - General FAMILY PRACTICE 12/10/19 documented as of this encounter
--- OUTSIDE RECORDS SUMMARY | 2024-07-11 05:39 | XMS_ITS | Encounter Summary ---
Author Organization [facility] Address [address] [place] [address]. [place] [address] [place] [address] Care Team Providers Care Sports Physiotherapist Name Role Phone Alejandro Blevins MD Primary Care Provider [phone] Encounter Details Date Type Department Care Team (Latest Contact Info) Description 09/07/2023 1:00 PM AUTOMATION APPLICATION ENGINEER - 09/07/2023 11:59 PM AUTOMATION APPLICATION ENGINEER Hospital Encounter [address] [place] [address] Roberta Alex MD [address] [place] [address] Discharge Disposition: Home or Self Care (Routine Discharge) Social History Tobacco Use Types Packs/Day Years Used Date Smoking Tobacco: Every Day Cigarettes Smokeless Tobacco: Never Alcohol Use Standard Drinks/Week Comments Not Currently 0 (1 standard drink = 0.6 oz pur e alcohol) Comments No Sex and Gender Information Value Date Recorded Sex Assigned at Not on file Legal Sex Female 11:30 PM AUTOMATION APPLICATION ENGINEER Gender Identity Female 11/10/2021 3:09 PM CDT Sexual Orientation Straight 11/10/2021 3: 09 PM CDT documented as of this encounter Functional Status * RETIRED Are you deaf or do you have serious difficulty hearing Answer Date of Assessment Author Status No 07/30/2020 10:48 PM AUTOMATION APPLICATION ENGINEER Acti ve * RETIRED Are you blind or do you have serious difficulty seeing, even when wearing glasses? Answer Date of Assessment Author Status No 07/30/2020 10:46 PM AUTOMATION APPLICATION ENGINEER Acti ve * Do you have serious [...] st Contact Info) Description 09/25/2024 11:30 AM AUTOMATION APPLICATION ENGINEER Appointment [facility] [place] [address] Roberta Alex MD [address] [place] [address] 09/25/2024 11:40 AM AUTOMATION APPLICATION ENGINEER Office Visit [facility] [place] [address] Roberta Alex MD [address] [place] [address] documented as of this encounter Procedures Procedure Name Priority Date/Time Associated Diagnosis Comments CBC W/DIFF AUTOMATED Routine 09/07/2023 2:42 PM AUTOMATION APPLICATION ENGINEER Acute ITP (CMS/HCC HHS/HCC) documented in this encounter Results * (ABNORMAL) CBC W/DIFF AUTOMATED (09/07/2023 2:42 PM AUTOMATION APPLICATION ENGINEER) WBC 7.40 4.00 - 10.80 x10'3/uL 09/07/2023 3:53 PM AUTOMATION APPLICATION ENGINEER [facility] RBC 5.16 4.10 - 5.40 x10'6/uL 09/07/2023 3:53 PM AUTOMATION APPLICATION ENGINEER [facility] HGB 14.8 12.0 - 16.0 G/DL 09/07/2023 3:53 PM AUTOMATION APPLICATION ENGINEER [facility] HCT 46.1 36.0 - 47.0 % 09/07/2023 3:53 PM AUTOMATION APPLICATION ENGINEER [facility] MCV 89.3 78.0 - 100.0 FL 09/07/2023 3:53 PM AUTOMATION APPLICATION ENGINEER [facility] MCH 28.7 27.0 - 31.0 PG 09/07/2023 3:53 PM AUTOMATION APPLICATION ENGINEER [facility] MCHC 32.1(L) 33.0 - 36.0 G/DL 09/07/2023 3:53 PM AUTOMATION APPLICATION ENGINEER [facility] RDW 12.3 11.5 - 14.5 % 09/07/2023 3:[address] [facility] PLT 36(L) 150 - 350 x10'3/uL 09/07/2023 3:[address] [facility] MPV RESULTS NOT AVAILABLE 7.4 - 10.4 FL 09/07/2023 3:[address] [facility] CBC COMMENT NORMAL REFERENCE RANGE NOT ESTABLISHED FOR THE PROPORTIONAL LEUKOCYTE DIFFERENTIAL. 09/07/2023 3:[address] [facility] NEUTROPHILS % 70.6 % 09/07/2023 5:[address] [facility] LYMPHOCYTES % 19.6 % 09/07/2023 5:[address] [facility] MONOCYTES % 3.9 % 09/07/2023 5:[address] [facility] EOSINOPHILS % 4.6 % 09/07/2023 5:[address] [facility] BASOPHILS % 0.9 % 09/07/2023 5:[address] [facility] IMMATURE GRANS % 0.4 % 09/07/19 5:[address] [facility] NRBC 0.0 % 09/07/2023 5:[address] [facility] ABS. NEUTROPHILS 5.22 1.60 - 8.30 x10'3/uL 09/07/2023 5:[address] [facility] ABS. LYMPHOCYTES 1.45 0.80 - 4.70 x10'3/uL 09/07/2023 5:[address] [facility] ABS. MONOCYTES 0.29 0.00 - 1.50 x10'3/uL 09/07/2023 5:[address] [facility] ABS. EOSINOPHILS 0.34 0.00 - 0.40 x10'3/uL 09/07/2023 5:[address] [facility] ABS. BASOPHILS 0.07 0.00 - 0.20 x10'3/uL 09/07/2023 5:[address] [facility] ABS. IMMATURE GRANULOCYTES 0.03 0.00 - 0.03 x10'3/uL 09/07/2023 5:[address] [facility] ABS. NUCLEATED RBC'S 0.00 0.00 x10'3/uL 09/07/2023 5:06 PM AUTOMATION APPLICATION ENGINEER [facility] PLT MORPH. DECREASED 09/07/2023 5:06 PM AUTOMATION APPLICATION ENGINEER [facility] RBC MORPHOLOGY NORMAL 09/07/2023 5:06 PM AUTOMATION APPLICATION ENGINEER [facility] 09/07/2023 2:42 PM AUTOMATION APPLICATION ENGINEER us Roberta Alex MD LABORATORY Final Result [facility] [address] [place] [address], documented in this encounter Visit Diagnoses Diagnosis Acute ITP (CMS/HCC HHS/HCC) Immune thrombocytopenic purpura documented in this encounter Additional Health Concerns Infection Onset Date Last Indicated Resolved Time MRSA 06/05/2021 06/05/2021 documented as of this encounter Care Teams Sports Physiotherapist Relationship Specialty Start Date End Date Alejandro Blevins MD PCP - General FAMILY PRACTICE 12/10/19 documented as of this encounter
--- OUTSIDE RECORDS SUMMARY | 2024-07-11 05:39 | XMS_ITS | Encounter Summary ---
Author Organization [facility] Address [address] [place] [address]. [place] [address] [place] [address] Care Team Providers Care Rehabilitation Consultant Name Role Phone Alejandro Blevins MD Primary Care Provider [phone] Reason for Visit * Reason Comments Follow Up Chronic ITP (idiopat hic thrombocytopenia) ([facility] HHS/HCC) Lab Results Encounter Details Date Type Department Care Team (Late st Contact Info) Description 06/19/2024 10:40 AM BRUSH TRIMMING MACHINE SETTER Office Visit [address] [place] [address] Roberta Alex MD [address] [place], [place] [id number] Follow Up (Chronic ITP (idiopathic thrombocytopenia) ([facility] HHS/HCC)); Lab Results Social History Tobacco Use Types Packs/Day [...] on file Legal Sex Female 11:30 PM BRUSH TRIMMING MACHINE SETTER Gender Identity Female 11/10/2021 3:09 PM CDT Sexual Orientation Straight 11/10/2021 3: 09 PM CDT documented as of this encounter Last Filed Vital Signs Vital Sign Reading Time Taken Comments Blood Pressure 122/75 06/19/2024 10:47 AM BRUSH TRIMMING MACHINE SETTER Pulse 73 06/19/2024 10:47 AM BRUSH TRIMMING MACHINE SETTER Temperature 36.1 ??C (97 ??F) 06/19/2024 10: 47 AM BRUSH TRIMMING MACHINE SETTER Respiratory Rate 20 06/19/2024 10:4 7 AM BRUSH TRIMMING MACHINE SETTER Oxygen Saturation 99% 06/19/2024 10: 47 AM BRUSH TRIMMING MACHINE SETTER Inhaled Oxygen Concentration - - Weight 77.1 kg (169 lb 15.6 oz) 024 10:47 AM BRUSH TRIMMING MACHINE SETTER Height 160 cm (5' 3 ) 06/19/2024 10:47 AM BRUSH TRIMMING MACHINE SETTER Body Mass Index 30.11 06/19/2024 10:47 AM BRUSH TRIMMING MACHINE SETTER documented in this encounter Functional Status * RETIRED Are you deaf or do you have serious difficulty hearing Answer Date of Assessment Author Status No 07/30/2020 10:48 PM BRUSH TRIMMING MACHINE SETTER Acti ve * RETIRED Are you blind or do you have serious difficulty seeing, even when wearing glasses? Answer Date of Assessment Author Status No 07/30/2020 10:46 PM BRUSH TRIMMING MACHINE SETTER Acti ve * Do you have serious difficulty walking or climbing stairs? Answer Date of Assessment Author Status No 07/30/2020 10:46 PM BRUSH TRIMMING MACHINE SETTER Nella Le RN Active * Do you have difficulty dressing or bathing? Answer Date of Assessment Author Status No 07/30/2020 10:46 PM BRUSH TRIMMING MACHINE SETTER Nella Le RN Active * Because of a physical, mental, or emotional condition, do you have difficulty doing errands alone such as visiting a doctor's office or shopping? Answer Date of Assessment Author Status No 07/30/2020 10:46 PM BRUSH TRIMMING MACHINE SETTER Nella Le RN Active documented as of this encounter Mental Status * Because of a physical, mental, or emotional condition, do you have serious difficulty concentrating, remembering, or making decisions? Answer Entry Date Author Status No 07/30/2020 10:46 PM Nella Leonardo RN Active documented in this encounter Progress Notes * Roberta Alex MD - 06/19/2024 10:40 AM CST HEMATOLOGY/ONCOLOGY NOTE IDENTIFYING DATA: Hillary Smalls is a 33-year-old female REASON FOR VISIT: Follow Up (Chronic ITP (idiopathic thrombocytopenia) (CMS/HCC HHS/HCC)) and Lab Results HEMATOLOGY DIAGNOSIS: 1. Chronic ITP. 2. History [...] INTERVAL HISTORY: Today Hillary returns for a regular 3-month followup visit. She reports feeling well and she thinks her platelet counts are in the normal range because she does not have any side effects. She denies anynosebleeds, gum bleeding, or blood in stool or urine. Her menstrual cycles are scant, she has an IUD in place. She tries to take her medications every day but has missed a few here and there. She hasheadaches but blames it on weather change and sinus issues due to allergies. She thinks she almost had a UTI because she was drinking a lot of soda, which she is trying to cut back on. She continues to smoke one pack every week, cut back quite a bit but is struggling with completely quitting. REVIEW OF SYSTEMS: 10-point review of systems is negative except as noted per HPI. Reviewed past medical history, surgical history, family history, social history. No changes except as noted. VITALS: Height: 5' 3 (1.6 m) , Weight: 169 lb 15.6 oz (77.1 kg) , BSA (Calculated - sq m): 1.85 sq meters , BP: 122/75 , Temp: 97 ??F (36.1 ??C) , Pulse: 73 , Resp: 20 PHYSICAL EXAMINATION: CONST: Overall is in usual health and no acute distress. ECOG performance status is 0 RESP: Chest clear to auscultation. Respirations even and unlabored. CV: Heart regular rate and rhythm without murmur. GI: Abdomen soft without mass, tenderness, or hernia. PSYCH: Appropriate mood and affect. NEURO: No speech difficulty. Alert and orientated to person, place, and time. Reviewed pertinent diagnostic tests, lab work, and imaging. These were reviewed with the patient. LABORATORY Lab Results Component Value Date/Time WBC 8.99 06/19/2024 10:40 AM HGB 14.1 06/19/2024 10:40 AM PLT 197 06/19/2024 10:40 AM NEUC 5.42 06/19/2024 10:40 AM CR 0.85 03/19/2024 10:51 AM K 3.7 03/19/2024 10:51 AM TBIL 0.3 03/19/2024 10:51 AM AST 21 03/19/2024 10:51 AM ALT 33 03/19/2024 10:51 AM ALKP 83 03/19/2024 10:51 AM TSH 1.425 11/25/2023 01:41 PM FERRITIN 31.9 04/19/2023 09:35 AM ASSESSMENT AND PLAN: 1. Chronic ITP-: on avatrombopag since October 2023. 2. History of iron deficiency anemia - Today platelet counts are at 197K. This is the best she has had in a while. She is currently on 20 mg daily. If it continues to increase to 200K to 400K range, then will reduce Avatrombopag to 20 mg 3 times a week. At this point, I would like for her to continue on the same dose. She is comfortable with the plan. - Strongly encouraged her to quit smoking, which she is working on but having a hard time. Refused any medications in support to it. She will follow up with PCP - Also encouraged her to incorporate good lifestyle modifications. - RTC in 3 months with repeat CBC, CMP, or sooner if needed. The patient verbalized understanding of plan of care and will call us sooner if needed with any questions or concerns. aml Roberta Alex MD CC: Alejandro Blevins MD H TRIMMING MACHINE SETTER documented in this encounter Plan of Treatment Upcoming Encounters Date Type Department Care Team (Late st Contact Info) Description 09/25/2024 11:30 AM BRUSH TRIMMING MACHINE SETTER Appointment [facility] [address] [place] [address] Roberta Alex MD [address] [place] [address] 09/25/2024 11:40 AM BRUSH TRIMMING MACHINE SETTER Office Visit [facility] [place] [address] Roberta Alex MD [address] [place] [address] documented as of this encounter Visit Diagnoses Diagnosis Chronic ITP (idiopathic thrombocytopenia) ([facility]/HCC [facility]/HCC)- Primary Immune thrombocytopenic purpura Iron deficiency anemia secondary to inadequate dietary iron intake [D50.8] Iron deficiency anemia secondary to inadequate dietary iron intake documented in this encounter Additional Health Concerns Infection Onset Date Last Indicated Resolved Time MRSA 06/05/2021 06/05/2021 documented as of this encounter Care Teams Rehabilitation Consultant Relationship Specialty Start Date End Date Alejandro Blevins MD PCP - General FAMILY PRACTICE 12/10/19 documented as of this encounter
--- OUTSIDE RECORDS SUMMARY | 2024-07-11 05:39 | XMS_ITS | Encounter Summary ---
Author Organization [facility] Address [facility] [place] [place] [address] [place] [address] Care Team Providers Care Infusion Pharmacist Name Role Phone Alejandro Blevins MD Primary Care Provider [phone] Encounter Details Date Type Department Care Team (Latest Contact Info) Description 03/19/2024 10:41 AM CDT - 03/19/2024 11:59 PM CDT Hospital Encounter [address] [place] [address] Roberta Alex MD [address] [place] [address] Discharge Disposition: Home or Self Care (Routine Discharge) Social History Tobacco Use Types Packs/Day Years Used Date Smoking Tobacco: Every Day Cigarettes Smokeless Tobacco: Never Alcohol Use Standard Drinks/Week Comments Not Currently 0 (1 standard drink = 0.6 oz pur e alcohol) Comments No Sex and Gender Information Value Date Recorded Sex Assigned at Not on file Legal Sex Female 11:30 PM LUMBER TYING MACHINE OPERATOR Gender Identity Female 11/10/2021 3:09 PM CDT Sexual Orientation Straight 11/10/2021 3: 09 PM CDT documented as of this encounter Functional Status * RETIRED Are you deaf or do you have serious difficulty hearing Answer Date of Assessment Author Status No 07/30/2020 10:48 PM LUMBER TYING MACHINE OPERATOR Acti ve * RETIRED Are you blind or do you have serious difficulty seeing, even when wearing glasses? Answer Date of Assessment Author Status No 07/30/2020 10:46 PM LUMBER TYING MACHINE OPERATOR Acti ve * Do you [...] 01/09/2024 SUMAtriptan (IMITREX) 100 MG tablet 03/22/2023 amoxicillin-clav ulanate (AUGMENTIN) 875-125 MG tablet Take 1 tablet (875 mg total) by mouth 2 (two) times daily for 10 days. 20 tablet 03/19/2024 4 DOPTELET 20 MG Tab take 1 tablet by mouth 1 time a day 30 tablet 3 02/07/2024 4 documented as of this encounter Plan of Treatment Upcoming Encounters Date Type Department Care Team (Late st Contact Info) Description 09/25/2024 11:30 AM LUMBER TYING MACHINE OPERATOR Appointment [facility] [address] [place] [address] Roberta Alex MD [address] [place] [id number] 09/25/2024 11:40 AM LUMBER TYING MACHINE OPERATOR Office Visit [facility] [address] [place] [address] Roberta Alex MD [address] [place] [id number] documented as of this encounter Procedures Procedure Name Priority Date/Time Associated Diagnosis Comments COMPREHENSIVE METABOLIC PANEL Routine 03/19/2024 10:51 AM CDT Thrombocytopenia (CMS/HCC) CBC W/DIFF AUTOMATED Routine 03/19/2024 10:51 AM CDT Thrombocytopenia (CMS/HCC) documented in this encounter Results * (ABNORMAL) COMPREHENSIVE METABOLIC PANEL (03/19/2024 10:51 AM CDT) SODIUM S/P/B 138 136 - 145 MMOL/L 03/19/2024 11:12 AM CDT [facility] POTASSIUM S/P/B 3.7 3.5 - 5.1 MMOL/L 03/19/2024 11:12 AM CDT [facility] CHLORIDE S/P/B 104 98 - 107 MMOL/L 03/19/2024 11:12 AM CDT [facility] CO2 26.5 21.0 - 32.0 MMOL/L 03/19/2024 11:12 AM [facility] GLUCOSE 144(H) 70 - 99 MG/DL 03/19/2024 11:12 AM [facility] Comment: FASTING GLUCOSE 100 TO 125 MG/DL IS CONSISTENT WITH IMPAIRED FASTING GLUCOSE. FASTING GLUCOSE >125 MG/DL IS CONSISTENT WITH DIABETES. RANDOM GLUCOSE >200 MG/DL WITH HYPERGLYCEMIC SYMPTOMS IS CONSISTENT WITH DIABETES. PER ADA GUIDELINES BUN 14 6 - 24 MG/DL 03/19/2024 11:12 AM [facility] CREATININE S/P/B 0.85 0.55 - 1.02 MG/DL 03/19/2024 11:12 AM [facility] CALCIUM S/P/B 8.7 8.4 - 10.5 MG/DL 03/19/2024 11:12 AM [facility] BILIRUBIN TOTAL S/P/B 0.3 0.2 - 1.0 MG/DL 03/19/2024 11:12 AM [facility] Comment: THIS ASSAY IS NOT RECOMMENDED FOR PATIENTS UNDERGOING TREATMENT WITH ELTROMBOPAG DUE TO THE POTENTIAL FOR FALSELY ELEVATED RESULTS. ALKALINE PHOSPHATASE S/P/B 83 37 - 98 U/L 03/19/2024 11:12 AM [facility] AST 21 15 - 37 U/L 03/19/2024 11:12 AM [facility] ALT 33 14 - 59 U/L 03/19/2024 11:12 AM [facility] TOTAL PROTEIN S/P/B 7.3 6.4 - 8.2 G/DL 03/19/2024 11:12 AM [facility] ALBUMIN S/P/B 3.8 3.4 - 5.0 G/DL 03/19/2024 11:12 AM [facility] ANION GAP 7.5 5.0 - 15.0 MMOL/L 03/19/2024 11:12 AM [facility] OSMOLALITY (CALC) 289 MOSM/KG 024 11:12 AM [facility] Comment:REFERENCE RANGE NOT ESTABLISHED GFR ESTIMATE >90 >89 ML/MIN/1. 73 M2 03/19/2024 11:12 AM CDT [facility] GFR NOTES GFR REFERENCE S: 03/19/2024 11:12 AM CDT [facility] Comment: THE ESTIMATED GFR IS [...] CDT Carey [facility]STELL[facility] Final Res ult [facility] [address] [place] [address], * (ABNORMAL) CBC W/DIFF AUTOMATED (03/19/2024 10:51 AM CDT) WBC 10.37 4.00 - 10.80 x10'3/uL 03/19/2024 11:01 AM CDT [facility] RBC 4.62 4.10 - 5.40 x10'6/uL 03/19/2024 11:01 AM CDT [facility] HGB 13.0 12.0 - 16.0 G/DL 03/19/2024 11:01 AM CDT [facility] HCT 40.5 36.0 - 47.0 % 03/19/2024 11:01 AM CDT [facility] MCV 87.7 78.0 - 100.0 FL 03/19/2024 11:01 AM CDT [facility] MCH 28.1 27.0 - 31.0 PG 03/19/2024 11:01 AM CDT [facility] MCHC 32.1(L) 33.0 - 36.0 G/DL 03/19/2024 11:01 AM CDT [facility] RDW 13.2 11.5 - 14.5 % 03/19/2024 11:01 AM CDT [facility] PLT 144(L) 150 - 350 x10'3/uL 03/19/2024 11:01 AM CDT [facility] MPV 13.8(H) 7.4 - 10.4 FL 03/19/2024 11:01 AM CDT [facility] CBC COMMENT NORMAL REFERENCE RANGE NOT ESTABLISHED FOR THE PROPORTIONAL LEUKOCYTE DIFFERENTIAL. 03/19/2024 11:01 AM CDT [facility] NEUTROPHILS % 72.9 % 03/19/2024 11:01 AM T [facility] LYMPHOCYTES % 16.4 % 03/19/2024 11:01 AM CDT [facility] MONOCYTES % 5.6 % 03/19/2024 11:01 AM CDT [facility] EOSINOPHILS % 4.3 % 03/19/2024 11:01 AM CDT [facility] BASOPHILS % 0.6 % 03/19/2024 11:01 AM CDT [facility] IMMATURE GRANS % 0.2 % 03/19/20 11:01 AM CDT [facility] NRBC 0.0 % 03/19/2024 11:01 AM CDT [facility] ABS. NEUTROPHILS 7.56 1.60 - 8.30 x10'3/uL 03/19/2024 11:01 AM CDT [facility] ABS. LYMPHOCYTES 1.70 0.80 - 4.70 x10'3/uL 03/19/2024 11:01 AM CDT [facility] ABS. MONOCYTES 0.58 0.00 - 1.50 x10'3/uL 03/19/2024 11:01 AM CDT [facility] ABS. EOSINOPHILS 0.45(H) 0.00 - 0.40 x10'3/uL 03/19/2024 11:01 AM CDT [facility] ABS. BASOPHILS 0.06 0.00 - 0.20 x10'3/uL 03/19/2024 11:01 AM CDT [facility] ABS. IMMATURE GRANULOCYTES 0.02 0.00 - 0.03 x10'3/uL 03/19/2024 11:01 AM CDT [facility] ABS. NUCLEATED RBC'S 0.00 0.00 - 0.01 x10'3/uL 03/19/2024 11:01 AM CDT [facility] 03/19/2024 10:5 1 AM CDT us Carey [facility] Final Res ult [facility] [address] [place] [address], documented in this encounter Visit Diagnoses Diagnosis Thrombocytopenia (CMS/HCC) Thrombocytopenia, unspecified documented in this encounter Additional Health Concerns Infection Onset Date Last Indicated Resolved Time MRSA 06/05/2021 06/05/2021 documented as of this encounter Care Teams Infusion Pharmacist Relationship Specialty Start Date End Date Alejandro Blevins MD PCP - General FAMILY PRACTICE 12/10/19 documented as of this encounter
--- OUTSIDE RECORDS SUMMARY | 2024-07-11 05:39 | XMS_ITS | Encounter Summary ---
Author Organization [facility] Address [address] [place] [address]. [place] [address] [place] [address] Care Team Providers Care Adobe Ball Mixer Name Role Phone Alejandro Blevins MD Primary Care Provider Encounter Details Date Type Department Care Team (Latest Contact Info) Description 09/22/2023 12:00 PM CAR MECHANIC HELPER - 09/22/2023 11:59 PM CAR MECHANIC HELPER Hospital Encounter [address] [place] [address] Roberta Alex MD [address] [place] [address] Discharge Disposition: Home or Self Care (Routine Discharge) Social History Tobacco Use Types Packs/Day Years Used Date Smoking Tobacco: Every Day Cigarettes Smokeless Tobacco: Never Alcohol Use Standard Drinks/Week Comments Not Currently 0 (1 standard drink = 0.6 oz pur e alcohol) Comments No Sex and Gender Information Value Date Recorded Sex Assigned at Not on file Legal Sex Female 11:30 PM CAR MECHANIC HELPER Gender Identity Female 11/10/2021 3:09 PM CDT Sexual Orientation Straight 11/10/2021 3: 09 PM CDT documented as of this encounter Functional Status * RETIRED Are you deaf or do you have serious difficulty hearing Answer Date of Assessment Author Status No 07/30/2020 10:48 PM CAR MECHANIC HELPER Acti ve * RETIRED Are you blind or do you have serious difficulty seeing, even when wearing glasses? Answer Date of Assessment Author Status No 07/30/2020 10:46 PM CAR MECHANIC HELPER Acti ve * Do you have serious [...] st Contact Info) Description 09/25/2024 11:30 AM CAR MECHANIC HELPER Appointment [facility] [address] [place] [address] Roberta Alex MD [address] [place] [address] 09/25/2024 11:40 AM CAR MECHANIC HELPER Office Visit [facility] [address] [place] [address] Roberta Alex MD [address] [place], [place] [id number] documented as of this encounter Procedures Procedure Name Priority Date/Time Associated Diagnosis Comments CBC W/DIFF AUTOMATED Routine 09/22/2023 1:07 PM CAR MECHANIC HELPER Acute ITP (CMS/HCC HHS/HCC) documented in this encounter Results * (ABNORMAL) CBC W/DIFF AUTOMATED (09/22/2023 1:07 PM CAR MECHANIC HELPER) WBC 7.48 4.00 - 10.80 x10'3/uL 09/22/2023 1:19 PM CAR MECHANIC HELPER [facility] RBC 4.72 4.10 - 5.40 x10'6/uL 09/22/2023 1:19 PM CAR MECHANIC HELPER [facility] HGB 13.6 12.0 - 16.0 G/DL 09/22/2023 1:19 PM CAR MECHANIC HELPER [facility] HCT 42.1 36.0 - 47.0 % 09/22/2023 1:19 PM CAR MECHANIC HELPER [facility] MCV 89.2 78.0 - 100.0 FL 09/22/2023 1:19 PM CAR MECHANIC HELPER [facility] MCH 28.8 27.0 - 31.0 PG 09/22/2023 1:19 PM CAR MECHANIC HELPER [facility] MCHC 32.3(L) 33.0 - 36.0 G/DL 09/22/2023 1:19 PM CAR MECHANIC HELPER [facility] RDW 12.0 11.5 - 14.5 % 09/22/2023 1:19 PM [facility] PLT 31(L) 150 - 350 x10'3/uL 09/22/2023 1:19 PM [facility] MPV RESULTS NOT AVAILABLE 7.4 - 10.4 FL 09/22/2023 1:19 PM [facility] CBC COMMENT NORMAL REFERENCE RANGE NOT ESTABLISHED FOR THE PROPORTIONAL LEUKOCYTE DIFFERENTIAL. 09/22/2023 1:19 PM [facility] NEUTROPHILS % 73.2 % 09/22/2023 1:41 PM [facility] LYMPHOCYTES % 18.0 % 09/22/2023 1:41 PM [facility] MONOCYTES % 2.9 % 09/22/2023 1:41 PM [facility] EOSINOPHILS % 4.8 % 09/22/2023 1:41 PM [facility] BASOPHILS % 0.8 % 09/22/2023 1:41 PM [facility] IMMATURE GRANS % 0.3 % 09/22/19 1:41 PM [facility] NRBC 0.0 % 09/22/2023 1:41 PM [facility] ABS. NEUTROPHILS 5.48 1.60 - 8.30 x10'3/uL 09/22/2023 1:41 PM [facility] ABS. LYMPHOCYTES 1.35 0.80 - 4.70 x10'3/uL 09/22/2023 1:41 PM [facility] ABS. MONOCYTES 0.22 0.00 - 1.50 x10'3/uL 09/22/2023 1:41 PM [facility] ABS. EOSINOPHILS 0.36 0.00 - 0.40 x10'3/uL 09/22/2023 1:41 PM [facility] ABS. BASOPHILS 0.06 0.00 - 0.20 x10'3/uL 09/22/2023 1:41 PM [facility] ABS. IMMATURE GRANULOCYTES 0.02 0.00 - 0.03 x10'3/uL 09/22/2023 1:41 PM CAR MECHANIC HELPER [facility] ABS. NUCLEATED RBC'S 0.00 0.00 x10'3/uL 09/22/2023 1:41 PM CAR MECHANIC HELPER [facility] PLT MORPH. DECREASED 09/22/2023 1:41 PM CAR MECHANIC HELPER [facility] RBC MORPHOLOGY NORMAL 09/22/2023 1:41 PM CAR MECHANIC HELPER [facility] 09/22/2023 1:07 PM CAR MECHANIC HELPER us Roberta Alex MD LABORATORY Final Result [facility] [address] [place] [address], documented in this encounter Visit Diagnoses Diagnosis Acute ITP (CMS/HCC HHS/HCC) Immune thrombocytopenic purpura documented in this encounter Additional Health Concerns Infection Onset Date Last Indicated Resolved Time MRSA 06/05/2021 06/05/2021 documented as of this encounter Care Teams Adobe Ball Mixer Relationship Specialty Start Date End Date Alejandro Blevins MD PCP - General FAMILY PRACTICE 12/10/19 documented as of this encounter
--- OUTSIDE RECORDS SUMMARY | 2024-07-11 05:39 | XMS_ITS | Encounter Summary ---
Author Organization [facility] Address [address] [place] [address] Care Team Providers Care Wedding Photographer Name Role Phone Alejandro Blevins MD Primary Care Provider [phone] Reason for Visit * Auth/Cert Specialty Diagnoses / Procedures Referred By Scarlet guzman Referred To Contact Referral ID Status Reason Start Date Expiration Date Visits Re quested Visits Authorized [id number] 1 1 Encounter Details Date Type Department Care Team (Latest Contact Info) Description 12/07/2019 9:14 PM CDT - 12/09/2019 5:55 PM CDT Hospital Encounter HC 5E ANTEPARTUM/MOTHER BABY [address] [place] [id number] Asuncion Aparicio MD [address] [place] [address] Discharge Disposition: Home or Self Care Social [...] Sign Reading Time Taken Comments Blood Pressure 120/57 12/09/2019 4:15 PM CDT Pulse 84 12/09/2019 4:15 PM CDT Temperature 36.7 ??C (98 ??F) 12/09/2019 4:15 PM CDT Respiratory Rate 18 12/09/2019 4:15 PM CDT Oxygen Saturation 100% 12/09/2019 4:15 PM CDT Inhaled Oxygen Concentration - - Weight 63.5 kg (139 lb 14.4 oz) 12/08/2019 6:18 AM CDT Height 160 cm (5' 2.99 ) 12/08/2019 6:18 AM CDT Body Mass Index 24.79 12/08/2019 6:18 AM CDT documented in this [...] as of this encounter Progress Notes * Leighann Yoon RN - 12/09/2019 5:55 PM CDT I spoke with Dr. Koehler OB resident to write a prescription for Iron which she did & I gave it to Hillary. Hillary's ride is here. Offered a wheelchair but declined. Leaving ambulatory with her mother. Reports feeling flutters occasionally. Denies any complaints or questions regarding discharge instructions given. * Asuncion Aparicio MD - 12/09/2019 5:55 PM CDT thanks will do. Appreciate your help. * Leighann Yoon RN - 12/09/2019 4:[address] Koehler OB resident given cbc results from today 7.8-hgb/26.5-hct/67-plt & wbc 16 today &9.8 yesterday. Hillary is without any complaints of dizziness/lightheadedness or heart racing /tachycardia. Dr. Koehler states she talk with her upper levels & Hillary does not need any IV iron prior to leaving. Discharge instructions explained & prescriptions given. Ambulating in the halls with a steady gait. Tolerating regular diet & voiding without difficulty. Mother at bedside. Waiting for her ride that is coming from an hour or so away- [facility]. * Christiano Pino MD - 12/09/2019 10:10 AM CDT Admit Date: 12/07/2019 Hospital day 0 History: Ms. Hillary Do is a 29 year old female With h/o HCV , chronic thrombocytopenia, h/o IVDU who is 19 w 1d of gestation with twin , admitted with ever anemia and thrombocytopenia. Follow up for: Anemia+thrombocytopenia Interval History: Patient seen at bedside, RN at bedside monitoring HR, patients mother at bedside.s/p 2 units of PRBC and IV venofer x1 and vit b12 injection yesterday. Cbc pending today. Mother wants to know if Hep c can be transmitted to the baby Review of Systems See interval History. Medications: Current Facility-Administered Medications Medication Dose Route Frequency Provider Last Rate Last Dose ??? 0.9% NaCl injection 3 mL 3 mL Intracatheter q8h Pattie Castellon MD 3 mL at 12/09/19 0545 And ??? 0.9% NaCl injection 1-10 mL 1-10 mL Intracatheter PRN Pattie Castellon MD ??? calcium carbonate (TUMS) chew tablet 2 tablet 2 tablet Oral q4h PRN Pattie Castellon MD ??? cyanocobalamin (VITAMIN B-12) injection 1,000 mcg 1,000 mcg Intramuscular QDChristiano Mares MD 1,000 mcg at 12/08/192113 ??? cyanocobalamin (VITAMIN B-12) tablet 1,000 mcg 1,000 mcg Oral QDChristiano Mares MD 1,000 mcg at 12/09/19922 ??? docusate sodium (COLACE) capsule 100 mg 100 mg Oral BID Pattie Castellon MD 100 mg at 12/09/19922 ??? folic acid (FOLVITE) tablet 1 mg 1 mg Oral QDChristiano Mares MD 1 mg at 12/08/192110 ??? iron polysaccharides (NIFEREX 150) capsule 150 mg 150 mg Oral QDAY Pattie Castellon MD 150 mg at 12/09/19922 ??? ondansetron (ZOFRAN) injection 4 mg 4 mg Intravenous q6h PRN Pattie Castellon MD Or ??? metoclopramide (REGLAN) injection 10 mg 10 mg Intravenous q6h PRN Pattie Castellon MD Or ??? prochlorperazine (COMPAZINE) suppository 25 mg 25 mg Rectal q12h PRN Pattie Castellon MD ??? nicotine (NICODERM CQ) patch 14 mg 14 mg Transdermal QDAY Pattie Castellon MD ??? nitrofurantoin monohyd macro crystals (MACROBID) capsule 100 mg 100 mg Oral BID WC Pattie Castellon MD 100 mg at 12/09/19922 ??? polyethylene glycol 3350 (MIRALAX) packet 17 g 17 g Oral QDAY PRN Cande, Pattie M, MD ??? vitamin with iron tablet 1 tablet 1 tablet Oral Pattie Vicente MD 1 tablet at 12/08/192111 Exam: Patient Vitals for the past 24 hrs: BP Temp Temp src Pulse Resp SpO2 12/09/19 0910 118/83 98 ??F (36.7 ??C) Oral 100 20 99 % 12/09/19 0416 116/70 98.3 ??F (36.8 ??C) -- 85 18 99 % 12/09/19 0309 118/74 98.4 ??F (36.9 ??C) -- 92 18 98 % 12/09/19 0216 110/66 98.5 ??F (36.9 ??C) -- 86 16 98 % 12/09/19 0201 123/72 98.3 ??F (36.8 ??C) -- 90 16 98 % 12/09/19 0109 127/76 98.5 ??F (36.9 ??C) -- 84 14 98 % 12/09/19 0011 120/74 98.1 ??F (36.7 ??C) -- 100 16 100 % 12/08/19 2356 118/76 97.9 ??F (36.6 ??C) -- 99 16 99 % 12/08/19 2020 123/77 98.4 ??F (36.9 ??C) Oral (!) 110 16 100 % General appearance: alert, cooperative, no distress, having monitoring by RN Lungs: breathing comfortably Heart: exam not performed- monitoring by nurse Abdomen: Extremities: no edema Data Review Recent Labs Component Name 12/08/19 1134 12/08/19 0224 WBC - 9.8 RBC - 3.02* HGB - 5.2* HCT - 19.5* MCV - 64.6* MCHC - 26.7* PLTCOUNT 61* 59* NEUTPCT - 70.3 LYMPHPCT - 18.8* BASOPHILPCT - 0.4 GRANSIMMPCT - 0.8 NEUTABS - 6.88 LYMPHABS - 1.84 BASOABS - 0.04 Recent Labs Lab Units 12/08/19 1134 PTT sec 27.9 PT sec 12.6 INR 1.0 Recent Labs Lab Units 12/08/19 0703 CO2 mmol/L 20* BUN mg/dL 8 CREATININE mg/dL 0.60 Recent Labs Lab Units 12/08/19 0703 ALT U/L 52 AST U/L 39* ALKPHOS U/L 70 Results for HILLARY DO ( ) as of 12/09/2019 10:34 Ref. Range 12/08/2019 07:03 12/08/2019 11:34 Ferritin Latest Ref Range: 5 - 204 ng/mL 2 (L) Folate Latest Ref Range: 7.0 - 31.4 ng/mL 6.8 (L) Iron Latest Ref Range: 50 - 170 ug/dL 15 (L) TIBC Calculated Latest Ref Range: 240 - 450 ug/ml 590 (H) Iron Saturation % Latest Ref Range: 20 - 50 % 3 (L) Transferrin Latest Ref Range: 180 - 382 mg/dL 472 (H) Vitamin B12 Latest Ref Range: 213 - 816 pg/mL 171 (L) Assessment and Plan Ms. Hillary Do is a 29 year old female who is admitted with the following issues: Severe Anemia: ? acute on chronic 2/ 2 Severe iron def, r/o nutritinoal def, ? Hemoglobinopathy, , Haptoglobin normal Bili - normal- not hemolytic - peripheral smear occasional schistocytes microcytosis and anisocytosis consistent with iron deficiency - ferritin of 2 with decrease folic acid of 6.8 an iron saturation of 3 percent - vitamin B12 171- low - s/p 2 units of PRBC and IV venofer x1 and vit b12 injection yesterday Plan Cbc pending Iv venofer 300 mg Today again Vit b12 1mg injection for 5 days them weekly for 4 weeks then monthly maintence (or after loading is complete vit b12 1000 mcg daily) -folic acid 1 mg daily -continue MVI - if being discharged should follow-up with her primary supervisor die casting (patient has been instructed to call her primary supervisor die casting office soon after D/c to schedule appointment) ?? Thrombocytopenia:2/2 hepatitisc, nutritional def, ?etoh / occult liver ds hepatitis screen, HIV, MARQUITA with reflex, lupus anticoagulant, b2 glycoprotein, Cardiolipin ab, Pt/Ptt/INR haptoglobin normal, rare schistocytes on peripheral smear, Unlikely TTP - FibroGen an within normal limit unlikely DIC - mild transamintsi likely secondary to drug use not c/w HELLP - Patient has chronically low platelet noted in 2018 platelet was 33 K patient - large platelets can also be seen with the medications or drug-induced as per patient has had bone marrow biopsy with supervisor die casting the around 6 years ago, after that was told no need to follow-up. - No active bleeding currently platelets above 50,000 plan - would replete vitamin B12 and folic acid - continue and folic acid and vit B12 supplement - should get ultrasound of liver and spleen as out patient - patient is recommended to stop illicit drug use, alcohol etc Transfuse If pl<20 or earlier if bleeidng ?? H/o chronic hepatitis C HCV quant pending ultrasound of liver and spleen can be done as o/p - has questions regarding hep c with transmitted to baby- need to d/w OB or GI Recommend hepatology/GI follow outpatient ?? currently 19 weeks - reported as twin - does not have outpatient OB - management per [facility] team ?? UTI: UA positive for E coli at outside hospital on Macrobid ?? history of drug use patient denies IV drug use currently however UDS positive for meth. counseling to stop illicit drug use D/w RN Christiano Pino MD Hematology/Oncology [facility] * Geri Harding RN - 12/09/2019 5:07 AM CDT Pt vitals and assessment within normal limits. Denies LOF or bleeding. Pt allowed me to doppler babies, both in the 150's. Pt given venofer IV and 2 units of PRBC's. Blood transfusions completed at 0415. Pt resting in bed with mother in room. Call light within reach. Geri Harding RN * Geri Harding RN - 12/09/2019 5:07 AM CDT Problem: Potential for Labor Goal: Patient will remain free of labor. Outcome: Ongoing Problem: Nutrition Goal: Total intake will be consistent with estimated nutrient needs Outcome: Ongoing Problem: Anxiety and Fear Goal: Patient Will Verbalize Concerns Related to Multiple Outcome: Ongoing Problem: Hemodynamic Status/Cardiac Output Goal: Patient has stable vital signs and fluid balance Outcome: Ongoing * Annabella Johnson MD - 12/09/2019 3:35 AM CDT R2 Antepartum Progress Note Date: 12/09/2019 Hospital Day: 2 Subjective: Hillary Do is a 29 year old at 19w1d weeks gestation. There were no acute overnight events. She is sleepy this AM and minimally responsive to verbal or tactile stimulation. Briefly denies contractions, vaginal bleeding, or leakage of fluid. Objective: Patient Vitals for the past 24 hrs: Temp Pulse Resp BP SpO2 12/09/19 0309 98.4 ??F (36.9 ??C) 92 18 118/74 98 % 12/09/19 0216 98.5 ??F (36.9 ??C) 86 16 110/66 98 % 12/09/19 0201 98.3 ??F (36.8 ??C) 90 16 123/72 98 % 12/09/19 0109 98.5 ??F (36.9 ??C) 84 14 127/76 98 % 12/09/19 0011 98.1 ??F (36.7 ??C) 100 16 120/74 100 % 12/08/19 2356 97.9 ??F (36.6 ??C) 99 16 118/76 99 % 12/08/192019 98.4 ??F (36.9 ??C) (!) 110 16 123/77 100 % 12/08/19 0730 97.7 ??F (36.5 ??C) 87 18 109/72 100 % 12/08/19 0618 97.8 ??F (36.6 ??C) 87 16 103/70 100 % Intake/Output Summary (Last 24 hours) at 12/09/2019 0335 Last data filed at 12/08/2019 0945 Gross per 24 hour Intake -- Output 400 ml Net -400 ml Physical Exam: General: sleepy, cooperative, no distress Abdomen: gravid, nontender, no palpable contractions Labs: Recent Labs Component Name 12/08/19 1134 12/08/19 0224 WBC - 9.8 HGB - 5.2* HCT - 19.5* PLTCOUNT 61* 59* Recent Labs Component Name 12/08/19 0703 SODIUM 135* POTASSIUM 3.8 CHLORIDE 109* CO2 20* BUN 8 CREATININE 0.60 GLUCOSE 76 CALCIUM 7.7* ALBUMIN 2.9* ALKPHOS 70 ALT 52 AST 39* TBIL 0.2 TPROT 6.1* EGFR >60 NST/[place]: See separate procedure note MEDICATIONS FOR CURRENT ENCOUNTER: ?? SCHEDULED MEDICATIONS: ?? 0.9% NaCl injection 3 mL, Intracatheter, q8h ?? cyanocobalamin (VITAMIN B-12) injection 1,000 mcg, Intramuscular, QDAY ?? cyanocobalamin (VITAMIN B-12) tablet 1,000 mcg, Oral, QDAY ?? docusate sodium (COLACE) capsule 100 mg, Oral, BID ?? folic acid (FOLVITE) tablet 1 mg, Oral, QDAY ?? iron polysaccharides (NIFEREX 150) capsule 150 mg, Oral, QDAY ?? nicotine (NICODERM CQ) patch 14 mg, Transdermal, QDAY ?? nitrofurantoin monohyd macro crystals (MACROBID) capsule 100 mg, Oral, BID WC ?? vitamin with iron tablet 1 tablet, Oral, QDAY ?? [COMPLETED] rxrzdnihso-dmxaabmkxiysq-szsimiqd (FIORICET) 50-325-40 MG tablet 1 tablet, Oral, Once ?? [COMPLETED] iron sucrose (VENOFER) 300 mg in 0.9% NaCl 265 mL IVPB, Intravenous, Once ?? CONTINUOUS MEDICATIONS: ?? PRN MEDICATIONS: ?? Or ?? Or ?? 0.9% NaCl injection 1-10 mL, Intracatheter, PRN ?? calcium carbonate (TUMS) chew tablet 2 tablet, Oral, q4h PRN ?? metoclopramide (REGLAN) injection 10 mg, Intravenous, q6h PRN ?? ondansetron (ZOFRAN) injection 4 mg, Intravenous, q6h PRN ?? polyethylene glycol 3350 (MIRALAX) packet 17 g, Oral, QDAY PRN ?? prochlorperazine (COMPAZINE) suppository 25 mg, Rectal, q12h PRN Assessment/Plan: 29 year old at 19w1d, with 1. Microcytic anemia+thrombocytopenia 1. Labs at the OSH are significant for: H/H: 5.9/20.9,MCV: 63.7,Plts: 61 Immature platelets: 22.8 (elevated, suggesting platelet destruction). Repeat here consistent: 5.2/19.5 with plts of 59 2. HIV negative RPR- NR 3. Currently asymptomatic from anemia does not feel dizzy, weak, light headed, SOB. Not tachycardic, AVSS. 4. Agreeable to transfusion overnight, completed 2u pRBCS, repeat CBC pending at noon 5. B12 low - ordered for 1000mcg IM x 5 days 6. Iron panel consistent with iron deficiency anemia (ferritin low, iron low, TIBC high, % saturation low, transferrin high) 7. Heme Onc consult completed - they suspect severe iron deficiency anemia and thrombocytopenia secondary to hepatitis C, recommended 2u pRBCs, IV venofer 300mg x 3 days, folic acid 1mg QD, and vitamin. Should follow-up with primary supervisor die casting on discharge. For thrombocytopenia, recommended ultrasound of liver and spleen and transfuse if platelets < 20 or if bleeding 2. Twins 1. Di/Di?- suspect based on US findings, will need confirmation 2. EFW: 282gm/268gm at [facility] on 12/08/2019 3. Dated by this scan 3. Chronic Hep C 1. With mild transaminitis at OSH 2. Repeat Quant pending, in 2018 quant was [id number] 3. Has followed with chain splitter, Dr. Jain, in the past. 4. UTI 1. Urine cult at OSH pos for E coli UTI 2. Macrobid ordered 5. PSA 1. Used heroin and meth in th past 2. UDS at OSH pos only for meth 6. Supervision of 1. Datin week ultrasound at outside hospital 2. PNL: A+/pend/-/-, NR 3. Needs anatomy scan 4. well being - pre-viable x 2 7. Dispo: possible discharge home later today with plan to schedule in infusion center for remaining B12 injections and Venofer infusions 8. Follow-up: patient would be candidate for care at [facility] if desired Annabella Johnson MD 12/09/2019 3:35 AM Associated attestation - Asuncion Aparicio MD - 12/09/2019 11:22 AM CDT MATERNAL MEDICINE ATTENDING I saw and examined the patient with the resident. I reviewed the assessment and plan and agree withthe above documentation by Dr. Johnson. 29 year old at 19w1d Severe iron deficiency anemia, folate, and B12 deficiencies. Additional workup pending. Appreciate heme recs. Tranfusing today Thrombocytopenia attributed to HCV, quant pending Twin , new diagnosis. Will need longitudinal MFM and heme surveillance Is stable to outpatient management but will need ongoing coordinated surveillance Do CL now Then discharge to home. Plan MFM consult and detailed US at [facility] Will also need heme and hepatology referrals Set up venofer and B12 outpatient Asuncion Aparicio MD Maternal Medicine * Geri Harding RN - 12/08/2019 11:12 PM CDT 12/08/19 2230 Clinician Communication/Critical Test Notification Reason: Condition Update Name of Clinician Notified: Kai Role: OB Resident Notification Method: Called/Phoned Action Orders Received Comments: Pt decided to accept PRBC's * Geri Harding RN - 12/08/2019 10:17 PM CDT 12/08/19 2156 Clinician Communication/Critical Test Notification Reason: Condition Update Name of Clinician Notified: Kai Role: OB Resident Notification Method: Called/Phoned Action No new orders received-Care to Continue Comments: Pt now accepting treatment After speaking with the patient, she changed her mind about accepting treatment. She allowed me to do an assessment, doppler babies and give medications. Geri Harding RN * Leighann Yoon RN - 12/08/2019 7:23 PM CDT Has refused assessment/vitals this afternoon & this evening/meds/ heart tones to be obtained/IV Venofer & blood transfusion. Left off the floor once from [id number] via a wheelchair with her visitor & returned & has been in her room ever since. Call light & phone within reach. Voiding without difficulty & tolerating regular diet. Instructed that staff is unable to assess well being when staff is unable to assess heart rate. Offered meds/to hang IV Venoferagain & do FHT's but continues to refuse. * Mary Ann Doe MD - 12/08/2019 12:14 PM CDT ALICE Lawton had discussed need for blood transfusion, as Hb low at 5.2. Patient declined blood transfusion but was ok with IV iron. Patient received information sheet on blood transfusions and signed the refusal sheet for blood. Mary Ann Doe MD 12/08/2019 12:14 PM * Leighann Yoon RN - 12/08/2019 11:45 AM CDT In to speak with iHllary regarding a blood transfusion that was ordered. At this time she is refusing stating my blood counts have been low all my life, im use to it. You all are the one's panicking & worried about it. I will do the IV iron sometime today just not now. I'm going outside to smoke. AMA form signed for going outside to smoke/vital signs/obtaining heart tones & refusing b lood transfusion form signed & both put in the front of the chart. Risks & benefits explained of smoking while (declined patch offered)/blood transfusion/refusing medications/refusingfetal heart rate to be obtained. Informed staff unable to assess well being. Denies dizziness/ lightheadedness or feeling like her heart is racing. Up in room with a steady gait. Dr. Doe OB resident notified. Reports feeling flutters occasionally. Denies any other symptoms at this time. * Adrian Cordova. - 12/08/2019 11:29 AM CDT Digital Marketing Strategist spoke with Patient's in threshold of room. Patient was asleep in bed. asked Digital Marketing Strategist for assistance in finding Cafeter[facility]. Digital Marketing Strategist offered support and escorted him to elevators. He shared concern for and hope that will be okay. This Digital Marketing Strategist offered support through listening presence by engaging in conversation. Chaplain Adrian Cordova * Leighann Yoon RN - 12/08/2019 9:[address] Pino attending for Hematology in & saw Hillary. I attempted to call [phone] for her to talk withthe OB resident but at this time they are in a . Dr. Pino states she will call them back herself. * Leighann Yoon RN - 12/08/2019 8:17 AM CDT Urine specimen collected & sent to lab prior to Hillary having a visitor Rc(father of babies) in the room. * Geri Harding RN - 12/08/2019 6:52 AM CDT Pt labs showed anemia and thrombocytopenia. Additional labs ordered. 2 units PRBC's on hold incase we transfuse. Pt found out yesterday she was with twins. Pt has swelling in both feet and injury to a toe on her right foot which may be broken. VSS, denies cramping, LOF or bleeding. Call light within reach. Geri Harding RN * Nika Linares RN - 12/08/2019 2:48 AM CDT 12/08/19 0247 Clinician Communication/Critical Test Notification Reason: Lab Results Name of Clinician Notified: Kai Role: OB Resident Notification Method: Called/Phoned Comments: H/H 5.2/19.5 * Geri Harding RN - 12/08/2019 2:37 AM CDT Problem: Potential for Labor Goal: Patient will remain free of labor. Outcome: Ongoing Problem: Nutrition Goal: Total intake will be consistent with estimated nutrient needs Outcome: Ongoing Problem: Anxiety and Fear Goal: Patient Will Verbalize Concerns Related to Multiple Outcome: Ongoing Problem: Hemodynamic Status/Cardiac Output Goal: Patient has stable vital signs and fluid balance Outcome: Ongoing documented in this encounter H&P Notes * Pattie Castellon MD - 12/08/2019 2:11 AM CDT R4 Obstetric H&P Note 12/08/2019, 2:14 AM CC: HRT for anemia, unspecified HPI: 29 year old at 19w0d gestation by ultrasound preformed at [facility] today with an Estimated Date of Delivery: 05/03/20 care: is with none Patient's is complicated by: Patient Active Problem List Diagnosis Date Noted ??? Hepatitis C virus infection without hepatic coma 12/08/2019 Priority: Not Prioritized ??? Thrombocytopenia affecting 12/08/2019 Priority: Not Prioritized ??? Transaminitis 12/08/2019 Priority: Not Prioritized ??? Twin 12/08/2019 Priority: Not Prioritized ??? Polysubstance abuse 12/08/2019 Priority: Not Prioritized ??? Anemia 12/07/2019 Priority: Not Prioritized Patient presents as a HRT from [facility] for anemia. She presented there for toe pain. Incidentally found to be with twins and dated by a sono there as well as anemic with a HgB of 5.9. Labs at the OSH are significant for: H/H: 5.9/20.9 MCV: 63.7 Plts: 61 PT: 12 INR: 0.9 PTT: 27.1 Immature platelets: 22.8 (elevated, suggesting platelet destruction) AST/ALT: 49/63 (mild elevation) HIV negative RPR- NR Urine culture pos for e coli In 2018 her H/H was 10.7/31.8 with a platelet count of 33 Hep C quant: [id number] in 2018 Hep A pos in 2018 Hep B vaccinated She has followed with a supervisor die casting. Dr. Dick Noel and chain splitter, Dr. Jain, in the past. [place] has not seen them in years. When asked about her low platelets she says they are always low! She is not sure what diagnosis Dr. Noel gave her. She is not aware of every having a low HgB. Has never needed a blood transfusion as far as she can remember. She denies any vaginal bleeding or any other form of bleeding. Her gums do bleed when she brushes her teeth. Currently asymptomatic from anemia does not feel dizzy, weak, light headed, SOB. Not tachycardic, AVSS. Additionally her PMHx is complicated by PSA, drugs of choice are meth and heroin. Now only uses meth, Last used two days ago. She had no idea she was . UDS pos for amphetamines at OSH negative Ctx. negative LOF. negative VB. N/A FM. Review of Symptoms: Positive for: see HPI Denies: fevers, chills, headache, chest pain, shortness of breath, nausea, vomiting, diarrhea, constipation, dysuria, urinary frequency, changes in vaginal discharge Obstetrical History: OB History Para Term AB Living 3 2 2 0 0 2 SAB TAB Ectopic Multiple Live Births 2 # Outcome Date GA Lbr Jhonny/2nd Weight Sex Delivery Anes PTL Lv 3 Current 2 Term MARTHA 1 Term MARTHA Gynecologic History: Abnormal pap smears: yes, HPV pos Cervical procedures no STDs: No Denies history of gonorrhea, chlamydia, trichomonas, herpes, HIV, syphilis Medical History: Past Medical History: Diagnosis Date ??? History of anemia ??? History of headache ??? Liver disease Hep C She denies history of hypertension, diabetes, or asthma Psych History: Depression: No Anxiety: No Bipolar disorder: No Schizophrenia: No Suicide attempts: No Abuse: No Surgeries: No past surgical history on file. Current Medications: Prior to Admission medications Not on File Allergies: Allergies Allergen Reactions ??? Bee Venom [...] of breast, ovarian, or uterine cancer Objective: Vitals: 12/07/19 2135 BP: 110/70 Pulse: 80 Resp: 16 Temp: 97.9 ??F (36.6 ??C) SpO2: 100% Height: 5' 3 (1.6 m) FHTs: 167/165 per outside scan Physical Exam: General: alert, cooperative, no distress Lungs: clear to auscultation bilaterally Heart: regular rate and rhythm Abdomen: gravid, soft, nontender, normal bowel sounds Female Genitalia: external genitalia and intoitus normal Extremities: normal, non-tender bilaterally. Edema trace Bedside ultrasound: Presentation: vertex/transverse Placenta: anterior Amniotic fluid index grossly normal Current Lab Review: No results found for this visit on 12/07/19. labs Blood type: A+ RPR: non-reactive HIV:Negative Assessment/Plan: 29 year old @ 19w0d 1. Microcytic anemia+thrombocytopenia 1. Labs at the OSH are significant for: H/H: 5.9/20.9,MCV: 63.7,Plts: 61 Immature platelets: 22.8 (elevated, suggesting platelet destruction). Repeat here consistent: 5.2/19.5 with plts of 59 2. HIV negative RPR- NR 3. Notably in 2018 her H/H was 10.7/31.8 with a platelet count of 33 4. She has followed with a supervisor die casting. Dr. Dick Noel in the past 5. Per pt, she has always had low platelets, but is not sure of the diagnosis. Never remembers having a low HgB, and has never had a blood transfusion. Denies any bleeding. Gums do bleed when she brushes her teeth. 6. Currently asymptomatic from anemia does not feel dizzy, weak, light headed, SOB. Not tachycardic, AVSS. 7. Pt currently thinking about a blood transfusion- unsure. Will decide in am 8. Differential is wide: 1. Infectious: Hep C, (HIV neg at OSH), could also consider infectious endocarditis (echo in am?), CMV, less likely would include things like [place] spotted fever, malaria 2. Malignancy 3. Rheumatic: SLE 4. TTP or HUS- though HUS less likely as Cr normal at OSH- Repeat CMP pending. LDH and haptoglobin ordered 5. DIC- low likelihood given normal labs, vitals and clinical stability at OSH, fibrinogen not collected, will get here 9. Plan to admit for work up: fibrinogen, HgbE, iron panel +ferritin, LDH , peripheral smear pending. At this time TTP on top of my differential, consider [id number] testing if initial testing suggestive. 10. Consider Heme/Onc consult 2. Twins 1. Di/Di?- suspect based on US findings, will need confirmation 2. EFW: 282gm/268gm at [facility] on 12/08/2019 3. Dated by this scan 3. Chronic Hep C 1. With mild transaminitis at OSH 2. Repeat Quant pending, in 2018 quant was [id number] 3. Has followed with chain splitter, Dr. Jain, in the past. 4. UTI 1. Urine cult at OSH pos for E coli UTI 2. Macrobid ordered 3. 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 5. PSA 1. Used heroin and meth in th past 2. UDS at OSH pos only for meth 3. Repeat UDS here 6. Previable x2 7. Dispo: Ante for Heme/Onc work up Pattie Castellon MD 12/08/2019 2:14 AM Associated attestation - Asuncion Aparicio MD - 12/08/2019 6:52 AM CDT MFM Attending History and Physical Addendum Date: 12/08/2019 I have seen and examined the patient with the resident/fellow and agree with their documentation. Subjective: Hillary Do is a 29 year old at 19w0d weeks gestation. Medications: MAR has been reviewed Physical Exam: Temp (24hrs) Max:97.9 ??F (36.6 ??C) BP 103/70 Pulse 87 Temp 97.8 ??F (36.6 ??C) (Oral) Resp 16 Ht 5' 2.99 (1.6 m) Wt 139 lb 14.4 oz (63.5 kg) SpO2 100% BMI 24.79 kg/m2 Pleasant female, no acute distress General: skin turgor normal no rashes nor lesions Lungs: unlabored respirations no wheeze nor cough Abdomen: soft, nontender, gravid Extremities: nontender. Labs Recent Labs Component Name 12/08/19 0224 WBC 9.8 HGB 5.2* HCT 19.5* PLTCOUNT 59* Assessment/Plan: Hillary Do is a 29 year old at 19w0d weeks gestation Patient Active Problem List: Anemia Hepatitis C virus infection without hepatic coma Thrombocytopenia affecting Transaminitis Twin Polysubstance abuse Problems and plans as listed Microcytic anemia + thrombocytopenia, chronic, suspect hematologic condition New diagnosis of Ongoing methamphetamine use, HCV, prior History not currently suspicious for acute/occult/-related blood loss. She is hemodynamically stable. Denies any acute complaints. Will defer transfusion at this time and perform initial hematologic workup, request labs from prior workup, and consult hematology -related risks of significant chronic anemia discussed, especially in light of multifetal gestation Asuncion Aparicio MD Maternal Medicine 12/08/2019 6:45 AM documented in this encounter Procedure Notes * Perla Murphy MD - 12/09/2019 12:51 PM CDT Bedside OB Ultrasound Indications: Pelvic pain, cramping in the second trimester Twin gestation Bedside ultrasound: TVCL 3cm averaged over 3 images FWB reassuring, continue monitoring as scheduled. Perla Murphy MD 12/09/2019 12:51 PM Associated attestation - Asuncion Aparicio MD - 12/11/2019 3:17 PM CDT MATERNAL MEDICINE ATTENDING I have reviewed and agree with the interpretation of this bedside ultrasound Asuncion Aparicio MD Maternal Medicine documented in this encounter Consult Notes * Christiano Pino MD - 12/08/2019 8:35 AM CDTAssociated Order(s): IP CONSULT TO HEMATOLOGY Hematology/Oncology Inpatient Consultation Hillary Do Age: [age] year old Date of : 1990 Date of Admission: 12/07/2019 Reason for consult: Patient transferred at 19 weeks with twins, has thrombocytopenia (chronic?) and severe anemia (Hgb: 5.2), asymptomatic Requesting physician Asuncion Aparicio MD Level of consult: Initial and Follow up Team MFM Chief Complaint: Patient is a 29 year old female who presents with abnormal labs. Ms. Hillary Do is a 29 year old female with a history of who is 19 week (twin), and also has h/o chronic thrombocytopenia( has seen hematology as OSH) , chronicHCV(2/2 IVDU), [facility] and thrombocytopenia. She initially presented with a toe pain and phos found to be with twins which she was not aware of. She was aware ofbeing around 3 months but did not expect to be a twin . her initial hemoglobin as per records an outside hospital was 5.9 with the microcytosis and platelets of 61 with normal PT INR. She has slightly elevated AST and ALT HIV was negative. Repeat hemoglobin platelets here as were similar. As per Documentation by primary team hemoglobin was 10.7 I 2018 with Platelets of 33 and had positive hepatitis-C patient seen at bedside. Says she feels fine and her blood counts running low is the normal for her. She upfront tells me that she has to go back home today. As per patient she had supervisor die casting Dr Bonilla before and had even a bone marrow biopsy done at least 6 years ago and that time she was told the no known further need for follow-up as her counts will remain low And that is normal for her. Patient does complain of shortness of breath on exertion or climbing stairs. Denies any chest pain or palpitation at rest. She does not a complains of any major of fatigue or tiredness more than usual. before her periods used to be irregular however lasting around 7-10 days with the 1st 7 days being very heavy. She denies any other bleeding issues or no hemorrhoid or bowel bleed no gum bleed . Occasional nosebleed has been reported also easy bruising or petechiae is noted on skin. As the patient her prior to 11and 14 years ago did not have any issues with the blood count, has never required blood transfusion or iron infusion. Has been recommended oral iron in the past but she cannot tolerate it due to GI symptoms. her hepatic c diagnosis is secondary to IV drug use social history: lives with the 2 young children, current smoker, denies any alcohol use. Does admitto amphetamine Denies any current IV drug use has a history of IV drug family history: denies any history of sickle cell, thalassemia or any bleeding or bruising disorder, or a autoimmune disorder Past Medical History: Past Medical History: Diagnosis Date ??? History of anemia ??? History of headache ??? Liver disease Hep C Past Surgical History: No past surgical history on file. Social History: Social History Tobacco Use ??? Smoking status: Current Some Day Smoker Packs/day: 0.50 Years: 15.00 Pack years: 7.50 Types: Cigarettes Start date: 07/2004 ??? Smokeless tobacco: Never Used Substance Use Topics ??? Alcohol use: Not Currently Family History: Family History Problem Relation Name Age of Onset ??? None Known Paternal Grandfather ??? None Known Paternal Grandmother ??? None Known Maternal Grandmother ??? None Known Maternal Grandfather ??? None Known Father ??? None Known Mother ??? None Known Brother ??? None Known Sister ??? None Known Other Allergies: Allergies Allergen Reactions ??? Bee Venom Anaphylaxis ??? Shellfish Allergy Anaphylaxis Medications: Current Facility-Administered Medications Medication ??? 0.9% NaCl injection 3 mL And ??? 0.9% NaCl injection 1-10 mL ??? calcium carbonate (TUMS) chew tablet 2 tablet ??? docusate sodium (COLACE) capsule 100 mg ??? iron polysaccharides (NIFEREX 150) capsule 150 mg ??? ondansetron (ZOFRAN) injection 4 mg Or ??? metoclopramide (REGLAN) injection 10 mg Or ??? prochlorperazine (COMPAZINE) suppository 25 mg ??? nicotine (NICODERM CQ) patch 14 mg ??? nitrofurantoin monohyd macro crystals (MACROBID) capsule 100 mg ??? polyethylene glycol 3350 (MIRALAX) packet 17 g ??? vitamin with iron tablet 1 tablet No medications prior to admission. I have reviewed all medications. Review of Systems: Constitutional: negative for fevers and chills Ears, nose, mouth, throat, and face: negative for hoarseness and voice change Respiratory: negative for cough, sputum or hemoptysis +SOBE Cardiovascular: negative for chest pain, chest pressure/discomfort, palpitations Gastrointestinal: negative for nausea, vomiting, diarrhea Genitourinary:negative for dysuria and hematuria Hematologic/lymphatic: negative for easy bruising and bleeding Neurological: negative for headaches, dizziness and weakness Behavioral/Psych: negative for anxiety Allergic/Immunologic: negative for seasonal allergies Musculoskeletal: no back or leg pain or leg swelling Skin: No rashes, bruises, petechiae Physical Exam: Wt Readings from Last 3 Encounters: 12/08/19 139 lb 14.4 oz (63.5 kg) Temp Readings from Last 3 Encounters: 12/08/19 97.7 ??F (36.5 ??C) (Oral) BP Readings from Last 3 Encounters: 12/08/19 109/72 Pulse Readings from Last 3 Encounters: 12/08/19 87 General appearance: alert, cooperative, no distress+pale Head: normocephalic, without trauma Eyes: sclera and conjunctiva clear,+pale Ears: canals clear, tympanic membranes normal, hearing intact to voice Nose: nares open; no septal deviation is noted Throat: no mucous membrane abnormalities Nodes: no cervical, axillary or inguinal adenopathy Lungs: breath sounds normal and symmetric; no rales or wheezes Heart: regular rhythm, normal S1 and S2, without murmurs, gallops or rubs Abdomen: soft+ uterus till umbilicus Extremities: no clubbing, cyanosis or edema Skin: no rashes or other abnormalities are noted Neurologic: mental status normal; alert and oriented X 3; cranial nerves II - XII are grossly intact Data: Recent Labs Component Name 12/08/19 0224 WBC 9.8 RBC 3.02* HGB 5.2* HCT 19.5* MCV 64.6* MCHC 26.7* PLTCOUNT 59* NEUTPCT 70.3 LYMPHPCT 18.8* BASOPHILPCT 0.4 GRANSIMMPCT 0.8 NEUTABS 6.88 LYMPHABS 1.84 BASOABS 0.04 Recent Labs Component Name 12/08/19 0703 SODIUM 135* POTASSIUM 3.8 CHLORIDE 109* CO2 20* BUN 8 CREATININE 0.60 GLUCOSE 76 CALCIUM 7.7* ALT 52 ALKPHOS 70 AST 39* TBIL 0.2 TPROT 6.1* EGFR >60 EGFRAFR >60 Recent Labs Component Name 12/08/19 0703 LDH 226* Recent Labs Component Name 12/08/19 0703 HAPTOGLOBIN 118 Results for HILLARY DO ( ) as of 12/08/2019 11:03 Ref. Range 12/08/2019 07:03 Ferritin Latest Ref Range: 5 - 204 ng/mL 2 (L) Folate Latest Ref Range: 7.0 - 31.4 ng/mL 6.8 (L) Iron Latest Ref Range: 50 - 170 ug/dL 15 (L) TIBC Calculated Latest Ref Range: 240 - 450 ug/ml 590 (H) Iron Saturation % Latest Ref Range: 20 - 50 % 3 (L) Transferrin Latest Ref Range: 180 - 382 mg/dL 472 (H) Review of peripheral blood smear: red cell , microcyticanisocytosis, pencil cells occasional targetcells occasional schistocytes, Occasional reticulocyte WBC normal in morphology and number. Occasional atypical lymphs., Platelets decreased, Multiple large platelets, no obvious clumping Assessments and Recommendations: Ms. Hillary Do is a 29 year old female With the following issues Severe Anemia: ? acute on chronic 2/ 2 Severe iron def, r/o nutritinoal def, ? Hemoglobinopathy, , Haptoglobin normal Bili - normal- not hemolytic - peripheral smear occasional schistocytes microcytosis and anisocytosis consistent with iron deficiency - ferritin of 2 with decrease folic acid of 6.8 an iron saturation of 3 percent - vitamin B12 and TSH- pending - discussed with patient that her hemoglobin of 5.2 is severely anemic. As per patient she runs lowand is normal for her explained that 5.2 hemoglobin is not normal limits at dangerously low level specially when she is with twins. All the patient appears hemodynamically stable and is symptomatic, blood transfusion would be recommended to keep hemoglobin close to 7 patient insisting on going home today. 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) 2 units PRBC -folic acid 1 mg daily -continue MVI - vit b12 pending- if <400 start vit b12 1000 mcg daily - is being discharged should follow-up with her primary supervisor die casting Thrombocytopenia:2/2 hepatitisc, nutritional def, ?etoh / occult liver ds hepatitis screen, HIV, MARQUITA with reflex, lupus anticoagulant, b2 glycoprotein, Cardiolipin ab, Pt/Ptt/INR haptoglobin normal, rare schistocytes on peripheral smear, Unlikely TTP - FibroGen an within normal limit unlikely DIC - mild transamintsi likely secondary to drug use not c/w HELLP - Patient has chronically low platelet noted at 8:18 p.m. platelet was 33 K patient - large platelets can also be seen with the medications or drug-induced as per patient has had bone marrow biopsy with supervisor die casting the around 6 years ago, after that was told no need to follow-up. - No active bleeding currently platelets above 50,000 plan - would replete vitamin B12 and folic acid if deficient - continue and folic acid - should get ultrasound of liver and spleen - patient is recommended to stop illicit drug use, alcohol etc Transfuse If pl<20 or earlier if bleeidng H/o chronic hepatitis C HCV quant pending ultrasound of liver and spleen Recommend hepatology/GI consult outpatient currently 19 weeks - reported as twin - does not have outpatient OB - management per [facility] team UTI: UA positive for E coli at outside hospital on Macrobid history of drug use patient denies IV drug use currently however UDS positive for meth. D/w RN and OB resident Thank you for this consult. We will continue to follow this patient with you. Please do not hesitate to contact us with further questions. Christiano Pino M.D. Hematology/Oncology [facility] documented in this encounter Plan of Treatment Not on file documented as of this encounter Procedures Procedure Name Priority Date/Time Associated Diagnosis Comments IMAGING/RADIOLOGY/XRAY RESULTS ORDER 12/11/2019 6:48 PM CDT RUBELLA ANTIBODY IGG Timed 12/09/2019 2:21 PM CDT Dichorionic diamniotic twin in second trimester (HCC) CBC W AUTO DIFFERENTIAL Timed 12/09/19 20 2:21 PM CDT Anemia, unspecified type TRANSFUSE RED BLOOD CELL LEUKOREDUCED UNIT(S) Routine 12/09/2019 2:01 AM CDT TRANSFUSE RED BLOOD CELL LEUKOREDUCED UNIT(S) Routine 12/08/2019 11:56 PM CDT LUPUS ANTICOAGULANT PANEL Routine 12/08/2019 11:34 AM CDT Anemia, unspecified type Chronic hepatitis C without hepatic coma (HCC) Thrombocytopenia affecting (HCC) HEPATITIS C RNA QUANTITATIVE Routine 12/08/2019 11:34 AM CDT Anemia, unspecified type Chronic hepatitis C without hepatic coma (HCC) Thrombocytopenia affecting (HCC) CARDIOLIPIN ANTIBODY IGG/IGM PANEL Routine 12/08/2019 11:34 AM CDT Anemia, unspecified type Chronic hepatitis C without hepatic coma (HCC) Thrombocytopenia affecting (HCC) MARQUITA BLOOD SCREEN W/REFLEX TITER Routine 12/08/2019 11:34 AM CDT Anemia, unspecified type Chronic hepatitis C without hepatic coma (HCC) Thrombocytopenia affecting (HCC) BETA-2 GLYCOPROTEIN 1 ANTIBODY IGG/IGM PANEL Routine 12/08/2019 11:34 AM CDT Anemia, unspecified type Chronic hepatitis C without hepatic coma (HCC) Thrombocytopenia affecting (HCC) COAGULATION PANEL W D-DIMER Routine 12/08/2019 11:34 AM CDT Anemia, unspecified type VITAMIN B12 Routine 12/08/2019 11:34 AM CDT Anemia, unspecified type Chronic hepatitis C without hepatic coma (HCC) Thrombocytopenia affecting (HCC) HEPATITIS SCREEN ACUTE Routine 0 11:34 AM CDT Anemia, unspecified type Chronic hepatitis C without hepatic coma (HCC) Thrombocytopenia affecting (HCC) PREPARE RBC LEUKOREDUCED UNIT Routine 12/08/2019 11:30 AM CDT URINE DRUG SCREEN IMMUNOASSAY Routine 12/08/2019 7:50 AM CDT Anemia, unspecified type TSH REFLEX FREE T4 Routine 12/08/2019 7: 03 AM CDT Anemia, unspecified type Chronic hepatitis C without hepatic coma (HCC) Thrombocytopenia affecting (HCC) HEPATITIS C RNA QUANTITATIVE Routine 12/08/2019 7:03 AM CDT Anemia, unspecified type CYTOMEGALOVIRUS ANTIBODY IGG/IGM BLOOD Routine 12/08/2019 7:03 AM CDT Anemia, unspecified type RUBELLA ANTIBODY IGM TITER Add on 12/08/2019 7:03 AM CDT Anemia, unspecified type Transaminitis HEMOGLOBIN ELECTROPHORESIS AM Draw 12/08/2019 7:03 AM CDT Anemia, unspecified type FIBRINOGEN ACTIVITY AM Draw 12/08/2019 7 :03 AM CDT Anemia, unspecified type RETIC COUNT Routine 12/08/2019 7:03 AM CDT Anemia, unspecified type Chronic hepatitis C without hepatic coma (HCC) Thrombocytopenia affecting (HCC) COMPREHENSIVE METABOLIC PANEL Routine 12/08/2019 7:03 AM CDT Anemia, unspecified type LDH BLOOD Routine 12/08/2019 7:03 AM CDT Anemia, unspecified type HEPATITIS B SURFACE ANTIGEN W RFLX CONFIRMATION Add on 12/08/2019 7:03 AM CDT Transaminitis FOLATE Routine 12/08/2019 7:03 AM CDT Anemia, unspecified type Chronic hepatitis C without hepatic coma (HCC) Thrombocytopenia affecting (HCC) IRON + TRANSFERRIN PANEL Routine 12/08/2019 7:03 AM CDT Anemia, unspecified type HAPTOGLOBIN Routine 12/08/2019 7:03 AM CDT Anemia, unspecified type FERRITIN Routine 12/08/2019 7:03 AM CDT Anemia, unspecified type PREPARE RBC LEUKOREDUCED UNIT Routine 12/08/2019 4:15 AM CDT BLOOD TYPE VERIFICATION Routine 12/08/19 3:01 AM CDT TYPE + SCREEN PANEL STAT 12/08/2019 2 :24 AM CDT SLIDE SCAN HEMATOLOGY Routine 12/08/2019 2:24 AM CDT Anemia, unspecified type CBC W AUTO DIFFERENTIAL Routine 12/08/19 2:24 AM CDT Anemia, unspecified type documented in this encounter Results * IMAGING RADIOLOGY XRAY RESULTS ORDER (12/11/2019 6:48 PM CDT) Anatomical Region Laterality Modality Other Narrative 12/11/2019 6:48 PM CDT Ordered by an unspecified provider. Scanned Document IMAGING * RUBELLA ANTIBODY IGG (12/09/2019 2:21 PM CDT) Rubella Antibody 1.15 Immune >0.99 index 12/11/2019 8:10 AM CDT [facility] ([facility]) Comment: ?Non-immune ? <0.90 ?Equivocal ??0.90 - 0.99 ?Immune ? >0.99 Blood BLOOD SPECIMEN / Unknown Lab Venipuncture / Unknown 12/09/2019 2:21 PM CDT 12/09/2019 2:33 PM CDT Narrative [facility] ([facility]) - 12/11/2019 8:10 AM CDT Performed at: ??01 - [facility] [place] [address], [place], [place] ??[id number] Consultant Teacher: Tyrone Rider PhD, Phone: ??[phone] Annabella Johnson MD LAB - SEROLOGY ORDER CRUZITO [facility] ([facility]) [address] [place] [address] * (ABNORMAL) CBC W AUTO DIFFERENTIAL (12/09/2019 2:21 PM CDT) WBC 16.0(H) 4.4 - 10.7 x10E9/L 12/09/2019 2:38 PM CDT [facility] WBC Corrected 12/09/2019 2:38 PM CDT [facility] RBC 3.94 3.80 - 5.20 x10E12/L 12/09/2019 2:38 PM CDT [facility] Hemoglobin 7.8(L) 12.0 - 15.6 gm/dL 12/09/2019 2:38 PM CDT [facility] Hematocrit 26.5(L) 35.9 - 45.5 % 12/09/2019 2:38 PM CDT [facility] MCV 67.3(L) 80.7 - 98.3 fl 12/09/2019 2:38 PM CDT [facility] MCH 19.8(L) 26.7 - 34.0 pg 12/09/2019 2:38 PM CDT [facility] MCHC 29.4(L) 30.8 - 35.9 gm/dL 12/09/2019 2:38 PM CDT [facility] Platelet Count 67(L) 153 - 416 x10E9/L 12/09/2019 2:38 PM [facility] RDW-CV 21.9(H) 12.1 - 14.9 % 12/09/2019 2:38 PM [facility] Neutrophils % 79.3(H) 44.0 - 73.0 % 12/09/2019 2:38 PM [facility] Lymphocytes % 10.6(L) 20.0 - 43.0 % 12/09/2019 2:38 PM [facility] Monocytes % 5.4 5.0 - 13.0 % 12/09/2019 2:38 PM [facility] Eosinophils % 1.8 0.0 - 6.0 % 12/09/2019 2:38 PM [facility] Basophils % 0.3 0.0 - 2.0 % 12/09/2019 2:38 PM [facility] Immature Granulocytes 2.6(H) 0 - 1 % 12/09/2019 2:38 PM [facility] Neutrophil Absolute 12.69(H) 2.01 - 7.14 x10E9/L 12/09/2019 2:38 PM T [facility] Lymphocytes Absolute 1.69 1.07 - 3.94 x10E9/L 12/09/2019 2:38 PM T [facility] Monocytes Absolute 0.86 0.26 - 1.07 x10E9/L 12/09/2019 2:38 PM [facility] Eosinophils Absolute 0.28 0 - 0.47 x10E9/L 12/09/2019 2:38 PM [facility] Basophils Absolute 0.04 0 - 0.08 x10E9/L 12/09/2019 2:38 PM [facility] Immature Granulocytes Absolute 0.41(H) 0.00 - 0.06 x10E9/L 12/09/2019 2:38 PM [facility] nRBC Auto 1 /100 WBC 12/09/2019 2:38 PM [facility] Blood BLOOD SPECIMEN / Unknown Lab Venipuncture / Unknown 12/09/2019 2:21 PM CDT 12/09/2019 2:33 PM CDT Annabella Johnson MD LAB - HEMATOLOGY ORD ERABLES [facility] [address] [place] [address] * TRANSFUSE RED BLOOD CELL LEUKOREDUCED UNIT(S) (12/09/2019 4:19 AM CDT) Chen Oneal MD NURSING - BLOOD PROD TRANSFUSION * TRANSFUSE RED BLOOD CELL LEUKOREDUCED UNIT(S), 2 Units (12/09/2019 4:19 AM CDT) Chen Oneal MD NURSING - BLOOD PROD TRANSFUSION * TRANSFUSE RED BLOOD CELL LEUKOREDUCED UNIT(S) (12/09/2019 2:02 AM CDT) Chen Oneal MD NURSING - BLOOD PROD TRANSFUSION * HEPATITIS C RNA QUANTITATIVE (12/08/2019 11:34 AM CDT) Hepatitis C Virus Quantitation [id number] IU/mL 12/19/2019 5:07 PM CDT [facility] ([facility] Hepatitis C Virus Log 10 5.959 log10 IU/mL 12/19/2019 5:07 PM CDT [facility] ([facility] Test Information Comment 12/19/19 5:07 PM CDT [facility] ([facility] Comment:The quantitative ran ge of this assay is 15 IU/mL to 100 million IU/mL. Blood BLOOD SPECIMEN / Unknown Lab Venipuncture / Unknown 12/08/2019 11:34 AM CDT 12/08/2019 1:41 PM CDT Narrative [facility] ([facility]) - 12/19/2019 5:07 PM CDT Performed at: ??01 - [facility] [address] ??[id number] Consultant Teacher: Kiran Guerra MD, Phone: ??[phone] Christiano Pino MD LAB - CHEMISTRY MIRI GO [facility] ([facility]) [address] [place] [address] * (ABNORMAL) COAGULATION PANEL W D-DIMER (12/08/2019 11:34 AM CDT) [facility] PT 12.6 12.1 - 14.8 sec 12/08/2019 1:10 PM CDT [facility] INR 1.0 0.9 - 1.1 12/08/2019 1:10 PM T [facility] PTT 27.9 23.0 - 38.4 sec 12/08/2019 1:10 PM T [facility] Fibrinogen 316 200 - 400 mg/dL 12/08/2019 1:10 PM [facility] D-Dimer 0.61(H) 0.27 - 0.50 ug/mL FEU 12/08/2019 1:10 PM [facility] Platelet Count 61(L) 153 - 416 x10E9/L 12/08/2019 1:10 PM T [facility] Blood BLOOD SPECIMEN / Unknown Lab Venipuncture / Unknown 12/08/2019 11:34 AM CDT 12/08/2019 12:31 PM CDT [facility] - 12/08/2019 1:10 PM CDT Conventional Warfarin Anticoagulant Therapy INR Reference [...] Non applicable Reference: Br. J. Haematol. ??145:[id number],2008. Christiano Pino MD LAB - COAGULATION OR DERABLES [facility] [address] [place] [address] * (ABNORMAL) CARDIOLIPIN ANTIBODY IGG/IGM PANEL (12/08/2019 11:34 AM CDT) Cardiolipin Antibody IgG <9 0 - 14 GPL U/mL 12/11/2019 4:09 PM CDT [facility] ([facility]) Comment: ?Negative: ?<15 ?Indeterminate: ? 15 - 20 ?Low-Med Positive: >20 - 80 ?High Positive: ? >80 Cardiolipin Antibody IgM 29(H) 0 - 12 MPL U/mL 12/11/2019 4:09 PM CDT [facility] ([facility]) Comment: ?Negative: ?<13 ?Indeterminate: ? 13 - 20 ?Low-Med Positive: >20 - 80 ?High Positive: ? >80 Blood BLOOD SPECIMEN / Unknown Lab Venipuncture / Unknown 12/08/2019 11:34 AM CDT 12/08/2019 12:32 PM CDT Narrative [facility] ([facility]) - 12/11/2019 4:09 PM CDT Performed at: ??01 - [facility] [address], [place] ??[id number] Consultant Teacher: Tyrone Rider PhD, Phone: ??[phone] Christaino Pino MD LAB - SEROLOGY ORDER CRUZITO [facility] ([facility]) [address] [place] [address] * BETA-2 GLYCOPROTEIN 1 ANTIBODY IGG/IGM PANEL (12/08/2019 11:34 AM CDT) Beta-2 Glycoprotein I Antibody IgG <9 0 - 20 GPI IgG units 12/12/2019 3:35 AM CDT [facility] ([facility] Comment: The reference interval reflects a 3SD or 99th percentile interval, which is thought to represent a potentially clinically significant result in accordance with the International Consensus Statement on the classification criteria for definitive antiphospholipid syndrome (APS). J Thromb Haem 2006;4:295-306. Beta-2 Glycoprotein I Antibody IgM 9 0 - 32 GPI IgM units 12/12/2019 3:35 AM CDT [facility] Comment: The reference interval reflects a 3SD or 99th percentile interval, which is thought to represent a potentially clinically significant result in accordance with the International Consensus Statement on the classification criteria for definitive antiphospholipid syndrome (APS). J Thromb Haem 2006;4:295-306. Blood BLOOD SPECIMEN / Unknown Lab Venipuncture / Unknown 12/08/2019 11:34 AM CDT 12/08/2019 12:32 PM CDT Narrative [facility] ([facility]) - 12/12/2019 3:35 AM CDT Performed at: ??01 - [facility] ??[id number] Consultant Teacher: Kiran Guerra MD, Phone: ??[phone] Christiano Pino MD LAB - CHEMISTRY MIRI GO [facility] ([facility]) [address] [place] [address] * LUPUS ANTICOAGULANT PANEL (12/08/2019 11:34 AM CDT) APTT 29.4 23.0 - 38.4 Seconds 12/11/2019 10:03 AM [facility] PT 12.3 12.1 - 14.8 Seconds 12/11/2019 10:03 AM [facility] INR 0.9 See Comment 12/11/2019 10:03 AM [facility] [place] Buffer 41.1 Seconds 020 10:03 AM [facility] [place] Phospholipid 38.7 Seconds 12/11/2019 10:03 AM [facility] [place] Delta 2.4 <8.0 Seconds 12/11/2019 10:03 AM [facility] Interpretation [place] Negative 12/11/2019 10:03 AM [facility] Comment:Up to 15-20% of jhony ents [...] Pino MD LAB - HEMATOLOGY ORD ERABLES [address] [address] [phone] * (ABNORMAL) HEPATITIS SCREEN ACUTE (12/08/2019 11:34 AM CDT) HAV Antibody IgM Non Reactive Non Reactive 12/08/2019 1:48 PM CDT [facility] HBsAg Non Reactive Non Reactive 12/08/2019 1:48 PM CDT [facility] HBc Antibody IgM Non Reactive Non Reactive 12/08/2019 1:48 PM CDT [facility] HCV Antibody Screen REACTIVE(A) Non Reactive 12/08/2019 1:48 PM CDT [facility] Blood BLOOD SPECIMEN / Unknown Lab Venipuncture / Unknown 12/08/2019 11:34 AM CDT 12/08/2019 12:32 PM CDT Narrative [facility] - 12/08/2019 1:48 PM CDT A reactive result is consistent with current HCV infection or past HCV infection that has been resolved. Reflex testing to Hepatitis C Virus RNA Quantitative, Real Time PCR will be performed. See separate report. Christiano Pino MD LAB - CHEMISTRY ORDE DONAVAN [facility] [address] [place] [address] * MARQUITA BLOOD SCREEN W/REFLEX TITER (12/08/2019 11:34 AM CDT) MARQUITA Negative Negative 12/10/2019 10:30 AM CDT [facility] Blood BLOOD SPECIMEN / Unknown Lab Venipuncture / Unknown 12/08/2019 11:34 AM CDT 12/08/2019 12:31 PM CDT Narrative [facility] - 12/10/2019 10:30 AM CDT Methodology: Indirect Immunofluorescence Assay (IFA) utilizing Hep-2-Gamma cells. Christiano Pino MD LAB - CHEMISTRY MIRI GO Performing Organization Address City/[facility]/ZIP Co de Phone Number [facility] [address] [place] [address] * (ABNORMAL) VITAMIN B12 (12/08/2019 11:34 AM CDT) Vitamin B12 171(L) 213 - 816 pg/mL 12/08/2019 1:48 PM CDT [facility] Blood BLOOD SPECIMEN / Unknown Lab Venipuncture / Unknown 12/08/2019 11:34 AM CDT 12/08/2019 12:31 PM CDT Christiano Pino MD LAB - CHEMISTRY MIRI GO Performing Organization Address [facility] Co de Phone Number [facility] [address] [place] [phone] * PREPARE (CROSSMATCH) RBC UNIT(S), 2 Units (12/08/2019 11:30 AM CDT) Product Code [id number] [facility] Unit Donor # [id number] [facility] Donor Type A [facility] Rh Type Unit POS [facility] Unit Status Transfd [facility] ABO Rh Type Unit APOS [facility] Donor Unit Expiration Date [facility] Blood Type Barcode 6200 [facility] Product Code [id number] [facility] Unit Donor # [id number] [facility]BO Donor Type A [facility] Rh Type Unit POS [facility] Unit Status Transfd [facility] ABO Rh Type Unit APOS [facility] Donor Unit Expiration Date [facility] Blood Type Barcode 6200 [facility] Blood Bank BLOOD SPECIMEN / Unknown 12/08/2019 11:30 AM CDT Chen Oneal MD LAB - BLOOD BANK ORD ERABLES [facility] [address] [phone] * (ABNORMAL) DRUG SCREEN TOX URINE PANEL (12/08/2019 7:50 AM CDT) Amphetamines Screen Urine Detected(A) Not detected 12/08/2019 8:46 AM CDT [facility] Barbiturates Screen Urine Not detected Not detected 12/08/2019 8:46 AM CDT [facility] Benzodiazepines Screen Urine Not detected Not detected 12/08/2019 8:46 AM CDT [facility] Cannabinoids Screen Urine Not detected Not detected 12/08/2019 8:46 AM CDT [facility] Cocaine Screen Urine Not detected Not detected 12/08/2019 8:46 AM CDT [facility] Fentanyl Urine Not detected Not detected 12/08/2019 8:46 AM CDT [facility] Methadone Screen Urine Not detected Not detected 12/08/2019 8:46 AM CDT [facility] Opiate Screen Urine Not detected Not detected 12/08/2019 8:46 AM CDT [facility] Phencyclidine Screen Urine Not detected Not detected 12/08/2019 8:46 AM CDT [facility] Urine URINE / Unknown Collection / Unknown 12/08/2019 7:50 AM CDT 12/08/2019 8:16 AM CDT Narrative [facility] - 12/08/2019 8:46 AM CDT This drug screen is designed for [...] ng/mL OPIATES ?300 ng/mL PHENCYCLIDINE(PCP) ??25 ng/mL Pattie Castellon MD LAB - URINE TOOL DESIGNER APPRENTICE RY ORDERABLES Performing Organization Address [facility] de Phone Number [facility] [address] [place] [address] * (ABNORMAL) RETIC COUNT (12/08/2019 7:03 AM CDT) Reticulocyte Count 1.72(H) 0.5 - 1.7 % 12/08/2019 9:16 AM CDT [facility] Reticulocyte Absolute 0.0530 0.0391 - 0.057 x10E6/uL 12/08/2019 9:16 AM CDT [facility] Reticulocyte Immature Fractionated 19.1(H) 9.3 - 17.4 % 12/08/2019 9:16 AM CDT [facility] Hemoglobin Retic 16.1(L) 30.6 - 40.7 pg 12/08/2019 9:16 AM CDT [facility] Blood BLOOD SPECIMEN / Unknown Lab Venipuncture / Unknown 12/08/2019 7:03 AM CDT 12/08/2019 7:48 AM CDT Christiano Pino MD LAB - HEMATOLOGY ORD ERABLES Performing Organization Address [facility] de Phone Number [facility] [address] [place] [phone] * TSH REFLEX FREE T4 (12/08/2019 7:03 AM CDT) TSH 0.826 0.350 - 4.940 uIU/mL 12/08/2019 11:02 AM CDT [facility] Blood BLOOD SPECIMEN / Unknown Lab Venipuncture / Unknown 12/08/2019 7:03 AM CDT 12/08/2019 7:48 AM CDT Christiano Pino MD LAB - CHEMISTRY ORDE RABMARTIN Performing Organization Address [facility] Co de Phone Number [facility] [address] [place] [address] * (ABNORMAL) FOLATE (12/08/2019 7:03 AM CDT) Pathologist [facility] Folate 6.8(L) 7.0 - 31.4 ng/mL 12/08/2019 11:02 AM CDT [facility] Blood BLOOD SPECIMEN / Unknown Lab Venipuncture / Unknown 12/08/2019 7:03 AM CDT 12/08/2019 7:48 AM CDT Christiano Pino MD LAB - CHEMISTRY MIRI GO Performing Organization Address [facility]/ZIP Co de Phone Number [facility] [address] [place] [address] * HEPATITIS B SURFACE ANTIGEN W RFLX CONFIRMATION (12/08/2019 7:03 AM CDT) [facility] HBsAg Non Reactive Non Reactive 12/08/2019 10:59 AM CDT [facility] Blood BLOOD SPECIMEN / Unknown Lab Venipuncture / Unknown 12/08/2019 7:03 AM CDT 12/08/2019 8:17 AM CDT Asuncion Aparicio MD LAB - CHEMISTRY MIRI GO Performing Organization Address [facility] Co de Phone Number [facility] [address] [place] [address] * RUBELLA ANTIBODY IGM TITER (12/08/2019 7:03 AM CDT) [facility] Rubella Antibody IgM <20.0 0.0 - 19.9 AU/mL 12/10/2019 8:08 AM CDT [facility] ([facility]) Comment: ? Negative ?<20.0 ? Equivocal ? 20.0 - 24.9 ? Positive ?>24.9 Blood BLOOD SPECIMEN / Unknown Lab Venipuncture / Unknown 12/08/2019 7:03 AM CDT 12/08/2019 8:17 AM CDT Narrative [facility] ([facility]) - 12/10/2019 8:08 AM CDT Performed at: ??01 - [facility] [place] [address] [place], [place] ??[id number] Consultant Teacher: Tyrone Rider PhD, Phone: ??[phone] Asuncion Aparicio MD LAB - SEROLOGY ORDER CRUZITO [facility] ([facility]) [address] [place] [address] * (ABNORMAL) CYTOMEGALOVIRUS ANTIBODY IGG/IGM BLOOD (12/08/2019 7:03 AM CDT) Cytomegalovirus Antibody IgG 5.40(H) 0.00 - 0.59 U/mL 12/10/2019 8:08 AM CDT [facility] ([facility]) Comment: ? Negative ?<0.60 ? Equivocal ?? 0.60 - 0.69 ? Positive ?>0.69 Cytomegalovirus Antibody IgM <30.0 0.0 - 29.9 AU/mL 12/10/2019 8:08 AM CDT [facility] ([facility]) Comment: ?Negative ? <30.0 ?Equivocal ??30.0 - 34.9 ?Positive ? >34.9 A positive result is generally indicative of acute infection, reactivation or persistent IgM production. Blood BLOOD SPECIMEN / Unknown Lab Venipuncture / Unknown 12/08/2019 7:03 AM CDT 12/08/2019 7:48 AM CDT Narrative [facility] ([facility]) - 12/10/2019 8:08 AM CDT Performed at: ??01 - [address] ??[id number] Consultant Teacher: Tyrone Rider PhD, Phone: ??[phone] Pattie Castellon MD LAB - CHEMISTRY ORD ERABLES Performing Organization Address [facility] de Phone Number [facility] ([facility]) [address] [place] [address] * HAPTOGLOBIN (12/08/2019 7:03 AM CDT) Haptoglobin 118 30 - 200 mg/dL 12/08/2019 8:11 AM CDT [facility] Blood BLOOD SPECIMEN / Unknown Lab Venipuncture / Unknown 12/08/2019 7:03 AM CDT 12/08/2019 7:48 AM CDT Pattie Castellon MD LAB - CHEMISTRY ORD ERABLES Performing Organization Address City/[facility] Co de Phone Number [facility] [address] [place] [address] * (ABNORMAL) LDH BLOOD (12/08/2019 7:03 AM CDT) LDH 226(H) 125 - 220 U/L 12/08/2019 8:11 AM CDT [facility] Blood BLOOD SPECIMEN / Unknown Lab Venipuncture / Unknown 12/08/2019 7:03 AM CDT 12/08/2019 7:48 AM CDT Pattie Castellon MD LAB - CHEMISTRY ORD ERABLES [facility] [address] [place] [address] * (ABNORMAL) COMPREHENSIVE METABOLIC PANEL (12/08/2019 7:03 AM CDT) Glucose 76 70 - 105 mg/dL 12/08/2019 8:11 AM CDT [facility] Sodium 135(L) 136 - 145 mmol/L 12/08/2019 8:11 AM CDT [facility] Potassium 3.8 3.5 - 5.1 mmol/L 12/08/2019 8:11 AM CDT [facility] Chloride 109(H) 98 - 107 mmol/L 12/08/2019 8:11 AM CDT [facility] CO2 20(L) 23 - 31 mmol/L 12/08/2019 8:11 AM CDT [facility] Calcium 7.7(L) 8.4 - 10.4 mg/dL 12/08/2019 8:11 AM CDT [facility] Anion Gap 6(L) 8 - 16 mmol/L 12/08/2019 8:11 AM CDT [facility] BUN 8 7 - 18.7 mg/dL 12/08/2019 8:11 AM CDT [facility] Creatinine 0.60 0.57 - 1.11 mg/dL 12/08/2019 8:11 AM CDT [facility] Alkaline Phosphatase 70 40 - 150 U/L 12/08/2019 8:11 AM CDT [facility] ALT 52 0 - 61 U/L 12/08/2019 8:11 AM CDT [facility] AST 39(H) 5 - 34 U/L 12/08/2019 8:11 AM CDT [facility] Protein Total 6.1(L) 6.4 - 8.3 gm/dL 12/08/2019 8:11 AM CDT [facility] Albumin 2.9(L) 3.5 - 5.2 gm/dL 12/08/2019 8:11 AM CDT [facility] Bilirubin Total 0.2 0.2 - 1.0 mg/dL 12/08/2019 8:11 AM CDT [facility] eGFR by MDRD >60 >60 mL/min/1.7 3m2 12/08/2019 8:11 AM CDT [facility] eGFR by MDRD >60 >60 mL/min/1.7 3m2 12/08/2019 8:11 AM CDT [facility] Blood BLOOD SPECIMEN / Unknown Lab Venipuncture / Unknown 12/08/2019 7:03 AM CDT 12/08/2019 7:48 AM CDT Pattie Castellon MD LAB - CHEMISTRY ORD ERABLES Performing Organization Address [facility] Co de Phone Number [facility] [address] [place] [address] * FIBRINOGEN ACTIVITY (12/08/2019 7:03 AM CDT) Pathologist [facility] Fibrinogen 319 200 - 400 mg/dL 12/08/2019 8:05 AM CDT [facility] Blood BLOOD SPECIMEN / Unknown Lab Venipuncture / Unknown 12/08/2019 7:03 AM CDT 12/08/2019 7:48 AM CDT Pattie Castellon MD LAB - COAGULATION O RDERABLES Performing Organization Address [facility] de Phone Number [facility] [address] [place] [address] * HEMOGLOBIN ELECTROPHORESIS (12/08/2019 7:03 AM CDT) Hemoglobin A1 98.3 97.1 - 99.1 % 12/12/2019 10:19 AM CDT [facility] Hemoglobin F 0.0 0.0 - 2.0 % 12/12/2019 10:19 AM CDT [facility] Hemoglobin S 0.0 <=0.0 % 12/12/2019 10:19 AM CDT [facility] Hemoglobin C 0.0 <=0.0 % 12/12/2019 10:19 AM CDT [facility] Hemoglobin A2 1.7 0.9 - 2.9 % 12/12/2019 10:19 AM CDT [facility] Hemoglobin E 0.0 % 12/12/2019 10:19 AM CDT [facility] Interpretation Normal Interpretation 12/12/2019 10:19 AM CDT [facility] Blood BLOOD SPECIMEN / Unknown Lab Venipuncture / Unknown 12/08/2019 7:03 AM CDT 12/08/2019 7:48 AM CDT Pattie Castellon MD LAB - CHEMISTRY ORD ERABLES Performing Organization Address City/[facility]/ZIP Co de Phone Number [facility] [address] [place] [address] * (ABNORMAL) FERRITIN (12/08/2019 7:03 AM CDT) Ferritin 2(L) 5 - 204 ng/mL 12/08/2019 8:31 AM CDT [facility] Blood BLOOD SPECIMEN / Unknown Lab Venipuncture / Unknown 12/08/2019 7:03 AM CDT 12/08/2019 7:48 AM CDT Pattie Castellon MD LAB - CHEMISTRY ORD ERABLES Performing Organization Address [facility] Co de Phone Number [facility] [address] [place] [address] * (ABNORMAL) IRON + TRANSFERRIN PANEL (12/08/2019 7:03 AM CDT) Iron 15(L) 50 - 170 ug/dL 12/08/2019 8:11 AM CDT [facility] Transferrin 472(H) 180 - 382 mg/dL 12/08/2019 8:11 AM CDT [facility] TIBC Calculated 590(H) 240 - 450 ug/ml 12/08/2019 8:11 AM CDT [facility] Iron Saturation % 3(L) 20 - 50 % 12/08/2019 8:11 AM CDT [facility] Blood BLOOD SPECIMEN / Unknown Lab Venipuncture / Unknown 12/08/2019 7:03 AM CDT 12/08/2019 7:48 AM CDT Pattie Castellon MD LAB - CHEMISTRY ORD ERABLES Performing Organization Address City/[facility]/ZIP Co de Phone Number [facility] [address] [place] [address] * HEPATITIS C RNA QUANTITATIVE (12/08/2019 7:03 AM CDT) [facility] Hepatitis C Virus Quantitation [id number] IU/mL 12/19/2019 6:08 AM CDT [facility] ([facility]) Hepatitis C Virus Log 10 6.217 log10 IU/mL 12/19/2019 6:08 AM CDT [facility] ([facility]) Test Information Comment 12/19/19 6:08 AM CDT [facility] ([facility]) Comment:The quantitative ran ge of this assay is 15 IU/mL to 100 million IU/mL. Blood BLOOD SPECIMEN / Unknown Lab Venipuncture / Unknown 12/08/2019 7:03 AM CDT 12/08/2019 7:48 AM CDT Narrative [facility] ([facility]) - 12/19/2019 6:08 AM CDT Performed at: ??01 - [address] ??[id number] Consultant Teacher: Kiran Guerra MD, Phone: ??[phone] Pattie Castellon MD LAB - CHEMISTRY ORD ERABLES [facility] ([facility]) [address] [place] [address] * PREPARE (CROSSMATCH) RBC UNIT(S), 2 Units (12/08/2019 4:15 AM CDT) Pathologist [facility] Product Code [id number] [facility] Unit Donor # [id number] [facility] Donor Type A [facility] Rh Type Unit POS [facility] Unit Status Ret'd [facility] ABO Rh Type Unit APOS [facility] Donor Unit Expiration Date [facility] Blood Type Barcode 6200 [facility] Product Code [id number] [facility] Unit Donor # [id number] [facility] ABO Donor Type A [facility] Rh Type Unit POS [facility] Unit Status Ret'd [facility] ABO Rh Type Unit APOS [facility] Donor Unit Expiration Date [facility] Blood Type Barcode 6200 [facility] Blood Bank BLOOD SPECIMEN / Unknown 12/08/2019 4:15 AM CDT Ron Quinn MD LAB - BLOOD BANK ORD ERABLES Performing Organization Address [facility]/ZIP Co de Phone Number [facility] [address] [place] [address] * BLOOD TYPE VERIFICATION (12/08/2019 3:01 AM CDT) Pathologist [facility] ABO A 12/08/2019 3:28 AM CDT [facility] Rh Type Positive 12/08/2019 3:28 AM CDT [facility] Blood Bank BLOOD SPECIMEN / Unknown Lab Venipuncture / Unknown 12/08/2019 3:01 AM CDT 12/08/2019 3:06 AM CDT Asuncion Aparicio MD LAB - BLOOD BANK ORD ERABLES Performing Organization Address [facility] Co de Phone Number [facility] [address] [place] [address] * (ABNORMAL) SLIDE SCAN HEMATOLOGY (12/08/2019 2:24 AM CDT) Pathologist [facility] Platelet Estimation Decreased (A) Normal, Adequate platelets 12/08/2019 4:17 AM CDT [facility] Large Platelets 2+(A) None 12/08/2019 4:17 AM CDT [facility] Blood BLOOD SPECIMEN / Unknown Venipuncture / Unknown 12/08/2019 2:24 AM CDT 12/08/2019 2:28 AM CDT Ron Quinn MD LAB - HEMATOLOGY ORD ERABLES Performing Organization Address City/[facility]/ZIP Co de Phone Number [facility] [address] [place] [address] * (ABNORMAL) CBC W AUTO DIFFERENTIAL (12/08/2019 2:24 AM CDT) WBC 9.8 4.4 - 10.7 x10E9/L 12/08/2019 2:45 AM CDT [facility] WBC Corrected 12/08/2019 2:45 AM CDT [facility] RBC 3.02(L) 3.80 - 5.20 x10E12/L 12/08/2019 2:45 AM CDT [facility] Hemoglobin 5.2(LL) 12.0 - 15.6 gm/dL 12/08/2019 2:45 AM CDT [facility] Hematocrit 19.5(LL) 35.9 - 45.5 % 12/08/2019 2:45 AM CDT [facility] MCV 64.6(L) 80.7 - 98.3 fl 12/08/2019 2:45 AM CDT [facility] MCH 17.2(L) 26.7 - 34.0 pg 12/08/2019 2:45 AM CDT [facility] MCHC 26.7(L) 30.8 - 35.9 gm/dL 12/08/2019 2:45 AM CDT [facility] Platelet Count 59(L) 153 - 416 x10E9/L 12/08/2019 2:[facility] R[facility]-CV 19.2(H) 12.1 - 14.9 % 12/08/2019 2:45 AM CDT [facility] Neutrophils % 70.3 44.0 - 73.0 % 12/08/2019 2:45 AM [facility] Lymphocytes % 18.8(L) 20.0 - 43.0 % 12/08/2019 2:45 AM CDT [facility] Monocytes % 6.7 5.0 - 13.0 % 12/08/2019 2:45 AM CDT [facility] Eosinophils % 3.0 0.0 - 6.0 % 12/08/2019 2:45 AM CDT [facility] Basophils % 0.4 0.0 - 2.0 % 12/08/2019 2:45 AM CDT [facility] Immature Granulocytes 0.8 0 - 1 % 12/08/2019 2:45 AM CDT [facility] Neutrophil Absolute 6.88 2.01 - 7.14 x10E9/L 12/08/2019 2:45 AM CDT [facility] Lymphocytes Absolute 1.84 1.07 - 3.94 x10E9/L 12/08/2019 2:45 AM CDT [facility] Monocytes Absolute 0.66 0.26 - 1.07 x10E9/L 12/08/2019 2:45 AM CDT [facility] Eosinophils Absolute 0.29 0 - 0.47 x10E9/L 12/08/2019 2:45 AM CDT [facility] Basophils Absolute 0.04 0 - 0.08 x10E9/L 12/08/2019 2:45 AM CDT [facility] Immature Granulocytes Absolute 0.08(H) 0.00 - 0.06 x10E9/L 12/08/2019 2:45 AM CDT [facility] nRBC Auto 0 /100 WBC 12/08/2019 2:45 AM CDT [facility] Blood BLOOD SPECIMEN / Unknown Venipuncture / Unknown 12/08/2019 2:24 AM CDT 12/08/2019 2:28 AM CDT Ron Quinn MD LAB - HEMATOLOGY ORD ERABLES [facility] [address] [place] [address] * TYPE + SCREEN PANEL (12/08/2019 2:24 AM CDT) ABO A 12/08/2019 3:22 AM CDT [facility] Rh Type Positive 12/08/2019 3:22 AM CDT [facility] Comment:History checked. Col lect retype. Antibody Screen Negative 12/08/2019 3:22 AM CDT [facility] Blood Bank BLOOD SPECIMEN / Unknown Lab Venipuncture / Unknown 12/08/2019 2:24 AM CDT 12/08/2019 2:28 AM CDT Pattie Castellon MD LAB - BLOOD BANK OR DERABLES [facility] [address] [phone] documented in this encounter Visit Diagnoses Diagnosis Anemia, unspecified type- Primary Transaminitis Nonspecific elevation of levels of transaminase or lactic acid dehydrogenase (LDH) Chronic hepatitis C without hepatic coma (HCC) Thrombocytopenia affecting (HCC) Dichorionic diamniotic twin in second trimester (HCC) Twin , antepartum Anemia Anemia, unspecified Hepatitis C virus infection without hepatic coma Thrombocytopenia affecting (HCC) Transaminitis Nonspecific elevation of levels of transaminase or lactic acid dehydrogenase (LDH) Twin (HCC) Polysubstance abuse (HCC) Other, mixed, or unspecified nondependent drug abuse, unspecified documented in this encounter Administered Medications Inactive Administered Medications - up to 3 most recent administrations Medication Order MAR Action Action Date Dose Rate Site 0.9% NaCl infusion rate and volume at 20 mL/hr, 250 mL, ONCE PRN, 1 dose, Starting on 12/08/19 at 1119, Until 12/08/19 at 2101, Normal Saline flush bag for blood and blood product administration $ Given 12/08/2019 9:01 PM CDT 250 mL 20 mL/hr 0.9% NaCl injection 1-10 mL 1-10 mL, Intracatheter, PRN, Other, peripheral line flush, Starting on 12/08/19 at 0203, Until 12/09/19 at 1902, Flush peripheral IV catheter with 1-10 mL of normal saline before and after medications and prn to clear blood from the line or to verify patency. 0.9% NaCl injection 3 mL 3 mL, Intracatheter, EVERY 8 HOURS, First dose on 12/08/19 at 0600, Until Discontinued, Flush peripheral IV catheter with 3 mL of normal saline every 8 hours. $ Given 12/09/2019 5:45 AM CDT 3 mL $ Given 12/08/2019 10:00 PM CDT 3 mL $ Given 12/08/2019 6:16 AM CDT 3 mL ngpjkrctxb-afjyaaqdrkiqm-rbk feine (FIORICET) 50-325-40 MG tablet 1 tablet 1 tablet, Oral, ONCE, 1 dose, On 12/08/19 at 0645, Do not exceed 6 tablets in 24 hours $ Given 12/08/2019 6:35 AM CDT 1 tablet calcium carbonate (TUMS) chew tablet 2 tablet 2 tablet, Oral, EVERY 4 HOURS PRN, GI Upset, Starting on 12/08/19 at 0208, Until 12/09/19 at 1902 cyanocobalamin (VITAMIN B-12) injection 1,000 mcg 1,000 mcg, Intramuscular, DAILY, 5 doses, First dose on Tue12/08/19 at 2000, Last dose on Tue12/12/19 at 2100 $ Given 12/08/2019 9:14 PM CDT 1,000 mcg Left Ventrogluteal cyanocobalamin (VITAMIN B-12) tablet 1,000 mcg 1,000 mcg, Oral, DAILY, First dose on Tue12/09/19 at 0900, Until Discontinued $ Given 12/09/2019 9:23 AM CDT 1,000 mcg docusate sodium (COLACE) capsule 100 mg 100 mg, Oral, 2 TIMES DAILY, First dose on Tue12/08/19 at 0245, Until Discontinued $ Given 12/09/2019 9:23 AM CDT 100 mg $ Given 12/08/2019 9:11 PM CDT 100 mg folic acid (FOLVITE) tablet 1 mg 1 mg, Oral, DAILY, First dose on Tue12/08/19 at 1200, Until Discontinued $ Given 12/08/2019 9:11 PM CDT 1 mg iron polysaccharides (NIFEREX 150) capsule 150 mg 150 mg, Oral, DAILY, First dose on Tue12/08/19 at 0900, Until Discontinued $ Given 12/09/2019 9:23 AM CDT 150 mg iron sucrose (VENOFER) 300 mg in 0.9% NaCl 265 mL IVPB 300 mg, at 176.67 mL/hr, Intravenous, ONCE, 1 dose, On 12/08/19 at 1115 $ New Bag/Syringe 12/08/2019 9:05 PM CDT 300 mg 176.67 mL/hr metoclopramide (REGLAN) injection 10 mg 10 mg, Intravenous, EVERY 6 HOURS PRN, Nausea/Vomiting, Starting on 12/08/19 at 0208, Until 12/09/19 at 1902, Start with ondansetron. If ondansetron ineffective use metoclopramide. If metoclopramide ineffective use prochlorperazine. nicotine (NICODERM CQ) patch 14 mg 14 mg, Administer over 24 Hours, DAILY, First dose on [facility] 12/08/19 at 0900, Until Discontinued, Remove old patch before applying new patch. This patch may contain metal and is not compatible with MRI. Notify radiology of patch location upon arrival to MRI. . WASTE DISPOSAL INSTRUCTIONS: P-Listed item. Special Disposal Required. . nitrofurantoin monohyd macro crystals (MACROBID) capsule 100 mg 100 mg, Oral, 2 TIMES DAILY WITH MEALS, 14 doses, First dose on 12/08/19 at 0800, Last dose on Tue12/14/19 at 1800, Indication for anti-infective therapy: Documented infection, Site of anti-infective therapy: Urine/Genitourinary $ Given 12/09/2019 9:23 AM CDT 100 mg $ Given 12/08/2019 9:12 PM CDT 100 mg ondansetron (ZOFRAN) injection 4 mg 4 mg, Intravenous, EVERY 6 HOURS PRN, Nausea/Vomiting, Starting on 12/08/19 at 0208, Until 12/09/19 at 1902, Start with ondansetron. If ondansetron ineffective use metoclopramide. If metoclopramide ineffective use prochlorperazine. polyethylene glycol 3350 (MIRALAX) packet 17 g 17 g, Oral, DAILY PRN, Constipation, Starting on 12/08/19 at 0208, Until 12/09/19 at 1902, Mix in 8 ounces of water, juice, soda, coffee or tea prior to administration vitamin with iron tablet 1 tablet 1 tablet, Oral, DAILY, First dose on 12/08/19 at 0900, Until Discontinued $ Given 12/08/2019 9:12 PM CDT 1 tablet prochlorperazine (COMPAZINE) suppository 25 mg 25 mg, Rectal, EVERY 12 HOURS PRN, Nausea/Vomiting, Starting on 12/08/19 at 0208, Until 12/09/19 at 1902, Start with ondansetron. If ondansetron ineffective use metoclopramide. If metoclopramide ineffective use prochlorperazine. documented in this encounter Active and Recently Administered Medications Times are shown in CDT. Scheduled Medication Order 12/07/2019 12/08/2019 12/09/2019 0.9% NaCl injection 3 mL(Linked Group 1) 3 mL, Intracatheter, EVERY 8 HOURS, First dose on 12/08/19 at 0600, Until Discontinued, Flush peripheral IV catheter with 3 mL of normal saline every 8 hours. 0616 ($ Given - Provider: Geri Harding RN)1400 (Not Administered - Provider: Leighann Yoon RN - Reason: Refused-Patient)2200 ($ Given - Provider: Geri Harding RN) 0545 ($ Given - Provider: Geri Harding RN)1400 (Due) hqenuvhgvn-uvvripjinywvf-pl ffeine (FIORICET) 50-325-40 MG tablet 1 tablet (COMPLETED) 1 tablet, Oral, ONCE, 1 dose, On 12/08/19 at 0645, Do not exceed 6 tablets in 24 hours 0635 ($ Given - Provider: Geri Harding RN) cyanocobalamin (VITAMIN B-12) injection 1,000 mcg 1,000 mcg, Intramuscular, DAILY, 5 doses, First dose on Tue12/08/19 at 2000, Last dose on Tue12/12/19 at 2100 211 ($ Given - Provider: Geri Harding RN) cyanocobalamin (VITAMIN B-12) tablet 1,000 mcg 1,000 mcg, Oral, DAILY, First dose on 12/09/19 at 0900, Until Discontinued 0923 ($ Given - Provider: Leighann Yoon RN) docusate sodium (COLACE) capsule 100 mg 100 mg, Oral, 2 TIMES DAILY, First dose on Tue12/08/19 at 0245, Until Discontinued 0225 (Not Administered - Provider: Geri Harding RN - Reason: Refused-Patient)0856 (Not Administered - Provider: Leighann Yoon RN - Reason: Refused-Patient)2110 ($ Given - Provider: Geri Harding RN) 0923 ($ Given - Provider: Leighann Yoon RN) folic acid (FOLVITE) tablet 1 mg 1 mg, Oral, DAILY, First dose on 12/08/19 at 1200, Until Discontinued 1200 (Not Administered - Provider: Leighann Yoon RN - Reason: Refused-Patient)2110 ($ Given - Provider: Geri Harding RN) iron polysaccharides (NIFEREX 150) capsule 150 mg 150 mg, Oral, DAILY, First dose on 12/08/19 at 0900, Until Discontinued 0856 (Not Administered - Provider: Leighann Yoon RN - Reason: Refused-Patient) 0923 ($ Given - Provider: Leighann Yoon RN) iron sucrose (VENOFER) 300 mg in 0.9% NaCl 265 mL IVPB (COMPLETED) 300 mg, at 176.67 mL/hr, Intravenous, ONCE, 1 dose, On 12/08/19 at 1115 1115 (Not Administered - Provider: Leighann Yoon RN - Reason: Refused-Patient)2105 ($ New Bag/Syringe - Provider: Geri Harding, RN)2235 (Stopped - Provider: Geri Harding RN) nicotine (NICODERM CQ) patch 14 mg 14 mg, Administer over 24 Hours, DAILY, First dose on 12/08/19 at 0900, Until Discontinued, Remove old patch before applying new patch. This patch may contain metal and is not compatible with MRI. Notify radiology of patch location upon arrival to MRI. . WASTE DISPOSAL INSTRUCTIONS: P-Listed item. Special Disposal Required. . 0857 (Not Administered - Provider: Leighann Yoon RN - Reason: Refused-Patient) 09 (Not Administered - Provider: Leighann Yoon RN - Reason: Refused-Patient) nitrofurantoin monohyd macro crystals (MACROBID) capsule 100 mg 100 mg, Oral, 2 TIMES DAILY WITH MEALS, 14 doses, First dose on Tue12/08/19 at 0800, Last dose on Tue12/14/19 at 1800, Indication for anti-infective therapy: Documented infection, Site of anti-infective therapy: Urine/Genitourinary 0856 (Not Administered - Provider: Leighann Yoon RN - Reason: Refused-Patient)1901 (Not Administered - Provider: Leighann Yoon RN - Reason: Refused-Patient)2111 ($ Given - Provider: Geri Harding RN) 09 ($ Given - Provider: Leighann Yoon RN)181 (Not Administered - Provider: Leighann Yoon RN - Reason: Refused-Patient) vitamin with iron tablet 1 tablet 1 tablet, Oral, DAILY, First dose on 12/08/19 at 0900, Until Discontinued 0856 (Not Administered - Provider: Leighann Yoon RN - Reason: Refused-Patient)2111 ($ Given - Provider: Geri Harding, RN) PRN Medication Order 12/07/2019 12/08/2019 12/09/2019 0.9% NaCl infusion rate and volume (COMPLETED) at 20 mL/hr, 250 mL, ONCE PRN, 1 dose, Starting on 12/08/19 at 1119, Until 12/08/19 at 2100, Normal Saline flush bag for blood and blood product administration 2100 ($ Given - Provider: Geri Harding RN) 0.9% NaCl injection 1-10 mL(Linked Group 1) 1-10 mL, Intracatheter, PRN, Other, peripheral line flush, Starting on 12/08/19 at 0203, Until 12/09/19 at 1902, Flush peripheral IV catheter with 1-10 mL of normal saline before and after medications and prn to clear blood from the line or to verify patency. calcium carbonate (TUMS) chew tablet 2 tablet 2 tablet, Oral, EVERY 4 HOURS PRN, GI Upset, Starting on 12/08/19 at 0208, Until 12/09/19 at 1902 metoclopramide (REGLAN) injection 10 mg(Linked Group 2) 10 mg, Intravenous, EVERY 6 HOURS PRN, Nausea/Vomiting, Starting on 12/08/19 at 0208, Until 12/09/19 at 1902, Start with ondansetron. If ondansetron ineffective use metoclopramide. If metoclopramide ineffective use prochlorperazine. ondansetron (ZOFRAN) injection 4 mg(Linked Group 2) 4 mg, Intravenous, EVERY 6 HOURS PRN, Nausea/Vomiting, Starting on 12/08/19 at 0208, Until 12/09/19 at 1902, Start with ondansetron. If ondansetron ineffective use metoclopramide. If metoclopramide ineffective use prochlorperazine. polyethylene glycol 3350 (MIRALAX) packet 17 g 17 g, Oral, DAILY PRN, Constipation, Starting on 12/08/19 at 0208, Until 12/09/19 at 1902, Mix in 8 ounces of water, juice, soda, coffee or tea prior to administration prochlorperazine (COMPAZINE) suppository 25 mg(Linked Group 2) 25 mg, Rectal, EVERY 12 HOURS PRN, Nausea/Vomiting, Starting on 12/08/19 at 0208, Until 12/09/19 at 1902, Start with ondansetron. If ondansetron ineffective use metoclopramide. If metoclopramide ineffective use prochlorperazine. Linked Groups Order Group 1: SALINE LOCK, INSERT AND MAINTAIN (CANCELED) Routine, CONTINUOUS, Starting on 12/08/19 at 0215, Until Specified, New collection And 0.9% NaCl injection 3 mLJump to med 3 mL, Intracatheter, EVERY 8 HOURS, First dose on 12/08/19 at 0600, Until Discontinued, Flush peripheral IV catheter with 3 mL of normal saline every 8 hours. And 0.9% NaCl injection 1-10 mLJump to med 1-10 mL, Intracatheter, PRN, Other, peripheral line flush, Starting on 12/08/19 at 0203, Until 12/09/19 at 1902, Flush peripheral IV catheter with 1-10 mL of normal saline before and after medications and prn to clear blood from the line or to verify patency. Group 2: ondansetron (ZOFRAN) injection 4 mgJump to med 4 mg, Intravenous, EVERY 6 HOURS PRN, Nausea/Vomiting, Starting on 12/08/19 at 0208, Until 12/09/19 at 1902, Start with ondansetron. If ondansetron ineffective use metoclopramide. If metoclopramide ineffective use prochlorperazine. Or metoclopramide (REGLAN) injection 10 mgJump to med 10 mg, Intravenous, EVERY 6 HOURS PRN, Nausea/Vomiting, Starting on 12/08/19 at 0208, Until 12/09/19 at 1902, Start with ondansetron. If ondansetron ineffective use metoclopramide. If metoclopramide ineffective use prochlorperazine. Or prochlorperazine (COMPAZINE) suppository 25 mgJump to med 25 mg, Rectal, EVERY 12 HOURS PRN, Nausea/Vomiting, Starting on 12/08/19 at 0208, Until 12/09/19 at 1902, Start with ondansetron. If ondansetron ineffective use metoclopramide. If metoclopramide ineffective use prochlorperazine. documented in this encounter Care Teams Wedding Photographer Relationship Specialty Start Date End Date Alejandro Blevins MD [address] [place] [address] PCP - General Family Medicine 12/07/19 documented as of this encounter
--- OUTSIDE RECORDS SUMMARY | 2024-07-11 05:39 | XMS_ITS | Encounter Summary ---
Author Organization [facility] Address [address] [place] [address]. [place] [address] [place] [address] Care Team Providers Care Video Operator Name Role Phone Alejandro Blevins MD Primary Care Provider [phone] Reason for Visit * Reason Comments Follow Up Chronic ITP Lab Results Encounter Details Date Type Department Care Team (Late st Contact Info) Description 10/03/2023 1:00 PM CDT Office Visit [address] [place] [address] Carey Pang, APNP [address] [place] [id number] Follow Up (Chronic ITP ); Lab Results Social History Tobacco Use Types [...] on file Legal Sex Female 11:30 PM SITE SUPERVISOR Gender Identity Female 11/10/2021 3:09 PM CDT Sexual Orientation Straight 11/10/2021 3: 09 PM CDT documented as of this encounter Last Filed Vital Signs Vital Sign Reading Time Taken Comments Blood Pressure 113/60 10/03/2023 1:15 PM CDT Pulse 91 10/03/2023 1:15 PM CDT Temperature 36.2 ??C (97.2 ??F) 10/03/2023 1:15 PM CD T Respiratory Rate 18 10/03/2023 1:15 PM CDT Oxygen Saturation 100% 10/03/2023 1:15 PM CDT Inhaled Oxygen Concentration - - Weight 80.3 kg (177 lb) 10/03/2023 1:15 PM CDT Height - - Body Mass Index 31.35 10/28/2022 3:44 PM CDT documented in this encounter Functional Status * RETIRED Are you deaf or do you have serious difficulty hearing Answer Date of Assessment Author Status No 07/30/2020 10:48 PM SITE SUPERVISOR Acti ve * RETIRED Are you blind or do you have serious difficulty seeing, even when wearing glasses? Answer Date of Assessment Author Status No 07/30/2020 10:46 PM SITE SUPERVISOR Acti ve * Do you have [...] encounter Progress Notes * EMANUEL Johansen - 10/03/2023 1:00 PM CDT HEMATOLOGY/ONCOLOGY NOTE IDENTIFYING DATA: Hillary Smalls is a 33-year-old female REASON FOR VISIT: Follow Up (Chronic ITP ) and Lab Results DIAGNOSIS: 1. Chronic ITP - steroid responsive. 2. History of hepatitis C- s/p treatment. 3. 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 Hx of morbidity. Unable to start ASA due to fluctuating thrombocytopenia. No concern for ATE/VTE- no indication forfull dose anticoagulation. 4. History of iron deficiency anemia related to heavy menstrual cycles. HEMATOLOGY HISTORY: Hillary Smalls is a 32-year-old female with hx of ITP, hepatitis C, polysubstance abuse,established care with me when she was with twins at 20 weeks gestation in 11/2019 and had no care. Past Treatment: 1. 03/2020: Developed placental abruption, [...] counts to 250K, again discontinued per patient. Active Treatment: . 01/2023: On active surveillance with repeat platelet counts. 2. Intermittent IV Venofer and B12 supplements for anemia. INTERVAL HISTORY: Patient returns today for routine 3-month follow-up. She was last seen in the clinic by Dr. Alex on July 05, 2023. Platelet counts have ranged anywhere from 39K to 51K. She has noticed some nosebleeds but these are unchanged. She typically does not have menstrual cycles due to IUD placement. However, she reports she does experience some bleeding when her platelets drop closer to 30 K level.She has chronic easy bruising but this also remains unchanged. She was very anxious during today's visit. She has reviewed some of the medications recommended by Dr. Alex and had several questions which were discussed in depth. She is back at work and reports that she tries a new medication she would need a work slip with modifications until she sees how she reacts to the medication. She is requesting a refill on her omeprazole. REVIEW OF SYSTEMS: 10-point review of systems is negative except as noted per HPI. Reviewed past medical history, surgical history, family history, social history. No changes except as noted. VITALS: Height: 5' 3 (1.6 m) , Weight: 177 lb (80.3 kg) , BSA (Calculated - sq m): 1.78 sq meters , BP: 113/60 , Temp: 97.2 ??F (36.2 ??C) , Pulse: 91 , Resp: 18 PHYSICAL EXAMINATION: CONST: Alert, ECOG 0. RESP: [...] LABORATORY Lab Results Component Value Date/Time WBC 7.48 09/22/2023 01:07 PM HGB 13.6 09/22/2023 01:07 PM PLT 31 (L) 09/22/2023 01:07 PM NEUC 5.48 09/22/2023 01:07 PM CR 0.72 10/03/2023 01:07 PM K 3.8 10/03/2023 01:07 PM TBIL 0.4 10/03/2023 01:07 PM AST 16 10/03/2023 01:07 PM ALT 34 10/03/2023 01:07 PM ALKP 65 10/03/2023 01:07 PM FERRITIN 31.9 04/19/2023 09:35 AM ASSESSMENT AND PLAN: 1. Acute on chronic ITP with platelet counts ranging 39K to 55K, currently on close observation. 2. History of iron deficiency anemia- stable Hgb, iron panel checked March 2023 and was stable. 3. History of chronic HCV, s/p hepatitis C antiviral treatment - appears to be in remission. I reviewed with the patient her evaluation, blood work, and treatment plan. Clinically, she has been experiencing some nosebleeds but these have been rather chronic for her and remain unchanged. Denies any new active bleeding. CMP unremarkable. CBC is pending today. CBC 2 weeks ago had shown further drop in platelet count at31.previously more so around 35-50 K. She is not committed to start taking Promacta or Nplate at this time but is willing to try oral avatrombopag. I reviewed this medication in depth and answered all of her questions. We reviewed potential side effects on up-to-date and answered all of her questions thoroughly to make her feel more comfortable with consideration of medication. Medication was confirmed with Dr. Alex and we will initiate 20 mg once daily and titrate accordingly. Refill sent on omeprazole to preferred pharmacy. Once initiated, monitor weekly CBC and follow-up with Dr. Alex in 4 weeks for reevaluation. The patient verbalized understanding of plan of care and will call us in the interim with any further questions or concerns. EMANUEL Johansen CC: Alejandro Blevins MD documented in this encounter Plan of Treatment Upcoming Encounters Date Type Department Care Team (Late st Contact Info) Description 09/25/2024 11:30 AM SITE SUPERVISOR Appointment [facility] [address] [place] [address] Roberta Alex MD [address] [place] [id number] 09/25/2024 11:40 AM SITE SUPERVISOR Office Visit [facility] [address] [place] [address] Roberta Alex MD [address] [place] [id number] documented as of this encounter Visit Diagnoses Diagnosis Chronic ITP (idiopathic thrombocytopenia) ([facility])- Primary Immune thrombocytopenic purpura Acute ITP ([facility]) Immune thrombocytopenic purpura Iron deficiency anemia due to chronic blood loss Iron deficiency anemia secondary to blood loss (chronic) documented in this encounter Additional Health Concerns Infection Onset Date Last Indicated Resolved Time MRSA 06/05/2021 06/05/2021 documented as of this encounter Care Teams Video Operator Relationship Specialty Start Date End Date Alejandro Blevins MD PCP - General FAMILY PRACTICE 12/10/19 documented as of this encounter
--- OUTSIDE RECORDS SUMMARY | 2024-07-11 05:39 | XMS_ITS | Encounter Summary ---
Author Organization [facility] Address [address] [place] [address]. [place] [address] [place] [address] Care Team Providers Care Driver'S License Reviewing Officer Name Role Phone Alejandro Blevins MD Primary Care Provider [phone] Encounter Details Date Type Department Care Team (Latest Contact Info) Description 10/03/2023 12:50 PM CDT - 10/03/2023 11:59 PM CDT Hospital Encounter [address] [place] [address] Roberta Alex MD [address] [place] [address] Discharge Disposition: Home or Self Care (Routine Discharge) Social History Tobacco Use Types Packs/Day Years Used Date Smoking Tobacco: Every Day Cigarettes Smokeless Tobacco: Never Alcohol Use Standard Drinks/Week Comments Not Currently 0 (1 standard drink = 0.6 oz pur e alcohol) Comments No Sex and Gender Information Value Date Recorded Sex Assigned at Not on file Legal Sex Female 11:30 PM DERMATOLOGY NURSE PRACTITIONER Gender Identity Female 11/10/2021 3:09 PM CDT Sexual Orientation Straight 11/10/2021 3: 09 PM CDT documented as of this encounter Functional Status * RETIRED Are you deaf or do you have serious difficulty hearing Answer Date of Assessment Author Status No 07/30/2020 10:48 PM DERMATOLOGY NURSE PRACTITIONER Acti ve * RETIRED Are you blind or do you have serious difficulty seeing, even when wearing glasses? Answer Date of Assessment Author Status No 07/30/2020 10:46 PM DERMATOLOGY NURSE PRACTITIONER Acti ve * Do you have serious [...] Pain. SUMAtriptan (IMITREX) 100 MG tablet 03/22/2023 Avatrombopag Maleate 20 MG TabIndications:C hronic ITP (idiopathic thrombocytopenia ) (CMS/HCC HHS/HCC) Take 20 mg by mouth daily. 30 tablet 3 10/03/2023 03/25/202 4 omeprazole (PRILOSEC) 20 MG capsuleIndicatio ns:Acute ITP (CMS/HCC HHS/HCC) Take 1 capsule (20 mg total) by mouth daily. 30 capsule 1 10/03/2023 4 documented as of this encounter Plan of Treatment Upcoming Encounters Date Type Department Care Team (Late st Contact Info) Description 09/25/2024 11:30 AM DERMATOLOGY NURSE PRACTITIONER Appointment [facility] [place] [address] Roberta Alex MD [address] [place] [address] [id number] 09/25/2024 11:40 AM DERMATOLOGY NURSE PRACTITIONER Office Visit [facility] Critical [facility] [place] [address] Roberta Alex MD [address] [place] [address] [id number] documented as of this encounter Procedures Procedure Name Priority Date/Time Associated Diagnosis Comments COMPREHENSIVE METABOLIC PANEL Routine 10/03/2023 1:07 PM CDT Iron deficiency anemia due to chronic blood loss CBC W/DIFF AUTOMATED Routine 10/03/2023 1:07 PM CDT Iron deficiency anemia due to chronic blood loss documented in this encounter Results * (ABNORMAL) COMPREHENSIVE METABOLIC PANEL (10/03/2023 1:07 PM CDT) SODIUM S/P/B 139 136 - 145 MMOL/L 10/03/2023 1:29 PM CDT [facility] POTASSIUM S/P/B 3.8 3.5 - 5.1 MMOL/L 10/03/2023 1:29 PM CDT [facility] CHLORIDE S/P/B 104 98 - 107 MMOL/L 10/03/2023 1:29 PM CDT [facility] CO2 25.2 21.0 - 32.0 MMOL/L 10/03/2023 1:29 PM CDT [facility] GLUCOSE 122(H) 70 - 99 MG/DL 10/03/2023 1:29 PM T [facility] Comment: FASTING GLUCOSE 100 TO 125 MG/DL IS CONSISTENT WITH IMPAIRED FASTING GLUCOSE. FASTING GLUCOSE >125 MG/DL IS CONSISTENT WITH DIABETES. RANDOM GLUCOSE >200 MG/DL WITH HYPERGLYCEMIC SYMPTOMS IS CONSISTENT WITH DIABETES. PER ADA GUIDELINES BUN 10 6 - 24 MG/DL 10/03/2023 1:29 PM T [facility] CREATININE S/P/B 0.72 0.55 - 1.02 MG/DL 10/03/2023 1:29 PM T [facility] CALCIUM S/P/B 9.1 8.4 - 10.5 MG/DL 10/03/2023 1:29 PM T [facility] BILIRUBIN TOTAL S/P/B 0.4 0.2 - 1.0 MG/DL 10/03/2023 1:29 PM T [facility] Comment: THIS ASSAY IS NOT RECOMMENDED FOR PATIENTS UNDERGOING TREATMENT WITH ELTROMBOPAG DUE TO THE POTENTIAL FOR FALSELY ELEVATED RESULTS. ALKALINE PHOSPHATASE S/P/B 65 37 - 98 U/L 10/03/2023 1:29 PM T [facility] AST 16 15 - 37 U/L 10/03/2023 1:29 PM [facility] ALT 34 14 - 59 U/L 10/03/2023 1:29 PM [facility] TOTAL PROTEIN S/P/B 6.9 6.4 - 8.2 G/DL 10/03/2023 1:29 PM [facility] ALBUMIN S/P/B 3.6 3.4 - 5.0 G/DL 10/03/2023 1:29 PM [facility] ANION GAP 9.8 5.0 - 15.0 MMOL/L 10/03/2023 1:29 PM [facility] OSMOLALITY (CALC) 288 MOSM/KG 024 1:29 PM [facility] Comment:REFERENCE RANGE NOT ESTABLISHED GFR ESTIMATE >90 >89 ML/MIN/1. 73 M2 10/03/2023 1:29 PM T [facility] GFR NOTES GFR REFERENCE S: 10/03/2023 1:29 PM CDT [facility] Comment: THE ESTIMATED GFR IS [...] us [facility] Final Res ult [facility] [address] [place] [address], * (ABNORMAL) CBC W/DIFF AUTOMATED (10/03/2023 1:07 PM CDT) WBC 10.03 4.00 - 10.80 x10'3/uL 10/03/2023 1:42 PM CDT [facility] RBC 4.71 4.10 - 5.40 x10'6/uL 10/03/2023 1:42 PM CDT [facility] HGB 13.5 12.0 - 16.0 G/DL 10/03/2023 1:42 PM CDT [facility] HCT 42.2 36.0 - 47.0 % 10/03/2023 1:42 PM CDT [facility] MCV 89.6 78.0 - 100.0 FL 10/03/2023 1:42 PM CDT [facility] MCH 28.7 27.0 - 31.0 PG 10/03/2023 1:42 PM CDT [facility] MCHC 32.0(L) 33.0 - 36.0 G/DL 10/03/2023 1:42 PM CDT [facility] RDW 12.5 11.5 - 14.5 % 10/03/2023 1:42 PM CDT [facility] PLT 63(L) 150 - 350 x10'3/uL 10/03/2023 1:42 PM CDT [facility] MPV 14.2(H) 7.4 - 10.4 FL 10/03/2023 1:42 PM CDT [facility] CBC COMMENT NORMAL REFERENCE RANGE NOT ESTABLISHED FOR THE PROPORTIONAL LEUKOCYTE DIFFERENTIAL. 10/03/2023 1:42 PM CDT [facility] NEUTROPHILS % 78.8 % 10/03/2023 1:43 PM CDT [facility] LYMPHOCYTES % 13.1 % 10/03/2023 1:43 PM CDT [facility] MONOCYTES % 3.9 % 10/03/2023 1:43 PM CDT [facility] EOSINOPHILS % 3.4 % 10/03/2023 1:43 PM CDT [facility] BASOPHILS % 0.5 % 10/03/2023 1:43 PM CDT [facility] IMMATURE GRANS % 0.3 % 10/03/19 24 1:43 PM CDT [facility] NRBC 0.0 % 10/03/2023 1:43 PM CDT [facility] ABS. NEUTROPHILS 7.90 1.60 - 8.30 x10'3/uL 10/03/2023 1:49 PM CDT [facility] Comment:CORRECTED ON 10/02 A T 1349: PREVIOUSLY REPORTED 7.91 ABS. LYMPHOCYTES 1.31 0.80 - 4.70 x10'3/uL 10/03/2023 1:43 PM CDT [facility] ABS. MONOCYTES 0.39 0.00 - 1.50 x10'3/uL 10/03/2023 1:43 PM CDT [facility] ABS. EOSINOPHILS 0.34 0.00 - 0.40 x10'3/uL 10/03/2023 1:43 PM CDT [facility] ABS. BASOPHILS 0.05 0.00 - 0.20 x10'3/uL 10/03/2023 1:43 PM CDT [facility] ABS. IMMATURE GRANULOCYTES 0.03 0.00 - 0.03 x10'3/uL 10/03/2023 1:43 PM CDT [facility] ABS. NUCLEATED RBC'S 0.00 0.00 x10'3/uL 10/03/2023 1:43 PM CDT [facility] PLT MORPH. DECREASED 10/03/2023 1:49 PM CDT [facility] RBC MORPHOLOGY NORMAL 10/03/2023 1:49 PM CDT [facility] 10/03/2023 1:07 PM CDT [facility] Edited Re sult - Final [facility] [address] [place] [address], documented in this encounter Visit Diagnoses Diagnosis Iron deficiency anemia due to chronic blood loss Iron deficiency anemia secondary to blood loss (chronic) documented in this encounter Additional Health Concerns Infection Onset Date Last Indicated Resolved Time MRSA 06/05/2021 06/05/2021 documented as of this encounter Care Teams Driver'S License Reviewing Officer Relationship Specialty Start Date End Date Alejandro Blevins MD PCP - General FAMILY PRACTICE 12/10/19 documented as of this encounter
--- OUTSIDE RECORDS SUMMARY | 2024-07-11 05:39 | XMS_ITS | Encounter Summary ---
Author Organization [facility] Address [address] [place] [address]. [place], [place] [address] [place] [address] Care Team Providers Care Cloth Sponger Name Role Phone Alejandro Blevins MD Primary Care Provider [phone] Encounter Details Date Type Department Care Team (Latest Contact Info) Description 09/22/2023 Travel Social History Tobacco Use Types Packs/Day Years Used Date Smoking Tobacco: Every Day Cigarettes Smokeless Tobacco: Never Alcohol Use Standard Drinks/Week Comments Not Currently 0 (1 standard drink = 0.6 oz pur e alcohol) Comments No Sex and Gender Information Value Date Recorded Sex Assigned at Not on file Legal Sex Female 11:30 PM TOOL REPAIRER BENCH Gender Identity Female 11/10/2021 3:09 PM CDT Sexual Orientation Straight 11/10/2021 3: 09 PM CDT documented as of this encounter Functional Status * RETIRED Are you deaf or do you have serious difficulty hearing Answer Date of Assessment Author Status No 07/30/2020 10:48 PM TOOL REPAIRER BENCH Acti ve * RETIRED Are you blind or do you have serious difficulty seeing, even when wearing glasses? Answer Date of Assessment Author Status No 07/30/2020 10:46 PM TOOL REPAIRER BENCH Acti ve * Do you have serious difficulty walking or climbing stairs? Answer Date of Assessment Author Status No 07/30/2020 10:46 PM TOOL REPAIRER BENCH Nella Le RN Active * Do you have difficulty dressing or bathing? Answer Date of Assessment Author Status No 07/30/2020 10:46 PM TOOL REPAIRER BENCH Nella Le RN Active * Because of a physical, mental, or emotional condition, do you have difficulty doing errands alone such as visiting a doctor's office or shopping? Answer Date of Assessment Author Status No 07/30/2020 10:46 PM TOOL REPAIRER BENCH Nella Le RN Active documented as of this encounter Mental Status * Because of a physical, mental, or emotional condition, do you have serious difficulty concentrating, remembering, or making decisions? Answer Entry Date Author Status No 07/30/2020 10:46 PM TOOL REPAIRER BENCH Nella Le RN Active documented in this encounter Plan of Treatment Upcoming Encounters Date Type Department Care Team (Late st Contact Info) Description 09/25/2024 11:30 AM TOOL REPAIRER BENCH Appointment [facility] [address] [place] [address] Roberta Alex MD [address] [place] [address] 09/25/2024 11:40 AM TOOL REPAIRER BENCH Office Visit [facility] [address] [place] [address] Roberta Alex MD [address] [place] [address] documented as of this encounter Visit Diagnoses Not on filedocumented in this encounter Additional Health Concerns Infection Onset Date Last Indicated Resolved Time MRSA 06/05/2021 06/05/2021 documented as of this encounter Care Teams Cloth Sponger Relationship Specialty Start Date End Date Alejandro Blevins MD PCP - General FAMILY PRACTICE 12/10/19 documented as of this encounter
--- OUTSIDE RECORDS SUMMARY | 2024-07-11 05:39 | XMS_ITS | Encounter Summary ---
Author Organization [facility] Address [address] [place] [address]. [place], [place] [address] [place] [address] Care Team Providers Care Tower Watchman Name Role Phone Alejandro Blevins MD Primary Care Provider [phone] Encounter Details Date Type Department Care Team (Latest Contact Info) Description 10/18/2023 Travel Social History Tobacco Use Types Packs/Day Years Used Date Smoking Tobacco: Every Day Cigarettes Smokeless Tobacco: Never Alcohol Use Standard Drinks/Week Comments Not Currently 0 (1 standard drink = 0.6 oz pur e alcohol) Comments No Sex and Gender Information Value Date Recorded Sex Assigned at Not on file Legal Sex Female 11:30 PM COMMUTATOR REPAIRER Gender Identity Female 11/10/2021 3:09 PM CDT Sexual Orientation Straight 11/10/2021 3: 09 PM CDT documented as of this encounter Functional Status * RETIRED Are you deaf or do you have serious difficulty hearing Answer Date of Assessment Author Status No 07/30/2020 10:48 PM COMMUTATOR REPAIRER Acti ve * RETIRED Are you blind or do you have serious difficulty seeing, even when wearing glasses? Answer Date of Assessment Author Status No 07/30/2020 10:46 PM COMMUTATOR REPAIRER Acti ve * Do you have serious difficulty walking or climbing stairs? Answer Date of Assessment Author Status No 07/30/2020 10:46 PM COMMUTATOR REPAIRER Nella Le RN Active * Do you have difficulty dressing or bathing? Answer Date of Assessment Author Status No 07/30/2020 10:46 PM COMMUTATOR REPAIRER Nella Le RN Active * Because of a physical, mental, or emotional condition, do you have difficulty doing errands alone such as visiting a doctor's office or shopping? Answer Date of Assessment Author Status No 07/30/2020 10:46 PM COMMUTATOR REPAIRER Nella Le RN Active documented as of this encounter Mental Status * Because of a physical, mental, or emotional condition, do you have serious difficulty concentrating, remembering, or making decisions? Answer Entry Date Author Status No 07/30/2020 10:46 PM COMMUTATOR REPAIRER Nella Le RN Active documented in this encounter Plan of Treatment Upcoming Encounters Date Type Department Care Team (Late st Contact Info) Description 09/25/2024 11:30 AM COMMUTATOR REPAIRER Appointment [facility] [address] [place] [address] Roberta Alex MD [address] [place] [address] 09/25/2024 11:40 AM COMMUTATOR REPAIRER Office Visit [facility] [address] [facility] [address] [address] [place] [address] Roberta Alex MD [address] [place] [address] documented as of this encounter Visit Diagnoses Not on filedocumented in this encounter Additional Health Concerns Infection Onset Date Last Indicated Resolved Time MRSA 06/05/2021 06/05/2021 documented as of this encounter Care Teams Tower Watchman Relationship Specialty Start Date End Date Alejandro Blevins MD PCP - General FAMILY PRACTICE 12/10/19 documented as of this encounter
--- OUTSIDE RECORDS SUMMARY | 2024-07-11 05:39 | XMS_ITS | Encounter Summary ---
Author Organization [facility] Address [facility] [place] [address] [place] [address] Care Team Providers Care Traffic Counter Name Role Phone Alejandro Blevins MD Primary Care Provider [phone] Encounter Details Date Type Department Care Team (Late st Contact Info) Description 10/17/2023 Orders Only [address] [place] [address] Roberta Alex MD [address] [place] [address] Social History Tobacco Use Types Packs/Day Years Used Date Smoking Tobacco: Every Day Cigarettes Smokeless Tobacco: Never Alcohol Use Standard Drinks/Week Comments Not Currently 0 (1 standard drink = 0.6 oz pur e alcohol) Comments No Sex and Gender Information Value Date Recorded Sex Assigned at Not on file Legal Sex Female 11:30 PM UPPERS EDGE BURNISHER Gender Identity Female 11/10/2021 3:09 PM CDT Sexual Orientation Straight 11/10/2021 3: 09 PM CDT documented as of this encounter Functional Status * RETIRED Are you deaf or do you have serious difficulty hearing Answer Date of Assessment Author Status No 07/30/2020 10:48 PM UPPERS EDGE BURNISHER Acti ve * RETIRED Are you blind or do you have serious difficulty seeing, even when wearing glasses? Answer Date of Assessment Author Status No 07/30/2020 10:46 PM UPPERS EDGE BURNISHER Acti ve * Do you have serious difficulty walking or climbing stairs? Answer Date of Assessment Author Status No 07/30/2020 10:46 PM UPPERS EDGE BURNISHER Bringuet, Nella C, RN Active * Do you have difficulty dressing or bathing? Answer Date of Assessment Author Status No 07/30/2020 10:46 PM UPPERS EDGE BURNISHER Nella Le RN Active * Because of [...] Date Type Department Care Team (Late st [facility] Info) Description 09/25/2024 11:30 AM UPPERS EDGE BURNISHER Appointment [facility] [address] [place] [address] Roberta Alex MD [address] [place] [address] 09/25/2024 11:40 AM UPPERS EDGE BURNISHER Office Visit [facility] [address] [place] [address] Roberta Alex MD [address] [place] [address] documented as of this encounter Results * (ABNORMAL) CBC W/DIFF AUTOMATED (10/18/2023 12:13 PM CDT) [facility] WBC 8.17 4.00 - 10.80 x10'3/uL 10/18/2023 12:27 PM CDT [facility] RBC 4.69 4.10 - 5.40 x10'6/uL 10/18/2023 12:27 PM CDT [facility] HGB 13.3 12.0 - 16.0 G/DL 10/18/2023 12:27 PM CDT [facility] HCT 41.8 36.0 - 47.0 % 10/18/2023 12:27 PM CDT [facility] MCV 89.1 78.0 - 100.0 FL 10/18/2023 12:27 PM CDT [facility] MCH 28.4 27.0 - 31.0 PG 10/18/2023 12:27 PM CDT [facility] MCHC 31.8(L) 33.0 - 36.0 G/DL 10/18/2023 12:27 PM CDT [facility] RDW 12.7 11.5 - 14.5 % 10/18/2023 12:27 PM CDT [facility] PLT 33(L) 150 - 350 x10'3/uL 10/18/2023 12:27 PM CDT [facility] MPV RESULTS NOT AVAILABLE 7.4 - 10.4 FL 10/18/2023 12:27 PM CDT [facility] CBC COMMENT NORMAL REFERENCE RANGE NOT ESTABLISHED FOR THE PROPORTIONAL LEUKOCYTE DIFFERENTIAL. 10/18/2023 12:27 PM CDT [facility] NEUTROPHILS % 65.0 % 10/18/2023 12:27 PM CDT [facility] LYMPHOCYTES % 22.3 % 10/18/2023 12:27 PM CDT [facility] MONOCYTES % 5.0 % 10/18/2023 12:27 PM CDT [facility] EOSINOPHILS % 6.5 % 10/18/2023 12:27 PM CDT [facility] BASOPHILS % 1.0 % 10/18/2023 12:27 PM CDT [facility] IMMATURE GRANS % 0.2 % 10/18/19 12:27 PM CDT [facility] NRBC 0.0 % 10/18/2023 12:27 PM CDT [facility] ABS. NEUTROPHILS 5.31 1.60 - 8.30 x10'3/uL 10/18/2023 12:27 PM CDT [facility] ABS. LYMPHOCYTES 1.82 0.80 - 4.70 x10'3/uL 10/18/2023 12:27 PM CDT [facility] ABS. MONOCYTES 0.41 0.00 - 1.50 x10'3/uL 10/18/2023 12:27 PM CDT [facility] ABS. EOSINOPHILS 0.53(H) 0.00 - 0.40 x10'3/uL 10/18/2023 12:27 PM CDT [facility] ABS. BASOPHILS 0.08 0.00 - 0.20 x10'3/uL 10/18/2023 12:27 PM CDT [facility] ABS. IMMATURE GRANULOCYTES 0.02 0.00 - 0.03 x10'3/uL 10/18/2023 12:27 PM CDT [facility] ABS. NUCLEATED RBC'S 0.00 0.00 x10'3/uL 10/18/2023 12:27 PM CDT [facility] PLT MORPH. DECREASED 10/18/2023 12:34 PM CDT [facility] RBC MORPHOLOGY NORMAL 10/18/2023 12:34 PM CDT [facility] 10/18/2023 12:1 3 PM CDT Roberta Alex MD LABORATORY Final Result [facility] [address] [place] [address], documented in this encounter Visit Diagnoses Diagnosis Thrombocytopenia (CMS/HCC)- Primary Thrombocytopenia, unspecified documented in this encounter Additional Health Concerns Infection Onset Date Last Indicated Resolved Time MRSA 06/05/2021 06/05/2021 documented as of this encounter Care Teams Traffic Counter Relationship Specialty Start Date End Date Alejandro Blevins MD PCP - General FAMILY PRACTICE 12/10/19 documented as of this encounter
--- OUTSIDE RECORDS SUMMARY | 2024-07-11 05:39 | XMS_ITS | Encounter Summary ---
Author Organization [facility] Address [address] [place] [address]. [place], [place] [address] [place] [address] Care Team Providers Care Machine Farmworker Name Role Phone Alejandro Blevins MD Primary Care Provider [phone] Encounter Details Date Type Department Care Team (Latest Contact Info) Description 08/12/2023 Travel Social History Tobacco Use Types Packs/Day Years Used Date Smoking Tobacco: Every Day Cigarettes Smokeless Tobacco: Never Alcohol Use Standard Drinks/Week Comments Not Currently 0 (1 standard drink = 0.6 oz pur e alcohol) Comments No Sex and Gender Information Value Date Recorded Sex Assigned at Not on file Legal Sex Female 11:30 PM SENIOR PAYROLL ADMINISTRATOR Gender Identity Female 11/10/2021 3:09 PM CDT Sexual Orientation Straight 11/10/2021 3: 09 PM CDT documented as of this encounter Functional Status * RETIRED Are you deaf or do you have serious difficulty hearing Answer Date of Assessment Author Status No 07/30/2020 10:48 PM SENIOR PAYROLL ADMINISTRATOR Acti ve * RETIRED Are you blind or do you have serious difficulty seeing, even when wearing glasses? Answer Date of Assessment Author Status No 07/30/2020 10:46 PM SENIOR PAYROLL ADMINISTRATOR Acti ve * Do you have serious difficulty walking or climbing stairs? Answer Date of Assessment Author Status No 07/30/2020 10:46 PM SENIOR PAYROLL ADMINISTRATOR Nella Le RN Active * Do you have difficulty dressing or bathing? Answer Date of Assessment Author Status No 07/30/2020 10:46 PM SENIOR PAYROLL ADMINISTRATOR Nella Le RN Active * Because of a physical, mental, or emotional condition, do you have difficulty doing errands alone such as visiting a doctor's office or shopping? Answer Date of Assessment Author Status No 07/30/2020 10:46 PM SENIOR PAYROLL ADMINISTRATOR Nella Le RN Active documented as of this encounter Mental Status * Because of a physical, mental, or emotional condition, do you have serious difficulty concentrating, remembering, or making decisions? Answer Entry Date Author Status No 07/30/2020 10:46 PM SENIOR PAYROLL ADMINISTRATOR Nella Le RN Active documented in this encounter Plan of Treatment Upcoming Encounters Date Type Department Care Team (Late st Contact Info) Description 09/25/2024 11:30 AM SENIOR PAYROLL ADMINISTRATOR Appointment [facility] [address] [place] [address] Roberta Alex MD [address] [place] [address] 09/25/2024 11:40 AM SENIOR PAYROLL ADMINISTRATOR Office Visit [facility] [address] [place] [address] Roberta Alex MD [address] [place] [address] documented as of this encounter Visit Diagnoses Not on filedocumented in this encounter Additional Health Concerns Infection Onset Date Last Indicated Resolved Time MRSA 06/05/2021 06/05/2021 documented as of this encounter Care Teams Machine Farmworker Relationship Specialty Start Date End Date Alejandro Blevins MD PCP - General FAMILY PRACTICE 12/10/19 documented as of this encounter
--- OUTSIDE RECORDS SUMMARY | 2024-07-11 05:39 | XMS_ITS | Encounter Summary ---
Author Organization [facility] Address [address] [place] [address]. [place] [address] [place] [address] Care Team Providers Care Plug Stitcher Name Role Phone Alejandro Blevins MD Primary Care Provider [phone] Reason for Visit * Reason Comments Follow Up Chronic ITP Lab Results Encounter Details Date Type Department Care Team (Late st Contact Info) Description 07/05/2023 2:40 PM SALES SUPERINTENDENT Office Visit [address] [place] [address] Roebrta Alex MD [address] [place] [address] Follow Up (Chronic ITP); Lab Results Social History Tobacco Use Types Packs/Day Years Used Date Smoking Tobacco: Every Day Cigarettes Smokeless Tobacco: Never Alcohol Use Standard Drinks/Week Comments Not Currently 0 (1 standard drink = 0.6 oz pur e alcohol) Comments No Sex and Gender Information Value Date Recorded Sex Assigned at Not on file Legal Sex Female 11:30 PM SALES SUPERINTENDENT Gender Identity Female 11/10/2021 3:09 PM CDT Sexual Orientation Straight 11/10/2021 3: 09 PM CDT documented as of this encounter Last Filed Vital Signs Vital Sign Reading Time Taken Comments Blood Pressure 124/78 07/05/2023 3:25 PM SALES SUPERINTENDENT Pulse 66 07/05/2023 3:25 PM SALES SUPERINTENDENT Temperature 35.7 ??C (96.3 ??F) 07/05/2023 3:25 PM CS T Respiratory Rate 18 07/05/2023 3:25 PM SALES SUPERINTENDENT Oxygen Saturation 100% 07/05/2023 3:25 PM SALES SUPERINTENDENT Inhaled Oxygen Concentration - - Weight 81.6 kg (179 lb 12.8 oz) 07/05/2023 3:25 PM SALES SUPERINTENDENT Height - - Body Mass Index 31.85 10/28/2022 3:44 PM CDT documented in this encounter Functional Status * RETIRED Are you deaf or do you have serious difficulty hearing Answer Date of Assessment Author Status No 07/30/2020 10:48 PM SALES SUPERINTENDENT Acti ve * RETIRED Are you blind or do you have serious difficulty seeing, even when wearing glasses? Answer Date of Assessment Author Status No 07/30/2020 10:46 PM SALES SUPERINTENDENT Acti ve * Do you have serious difficulty walking or climbing stairs? Answer Date of Assessment Author Status No 07/30/2020 10:46 PM SALES SUPERINTENDENT Nella Le RN Active * Do you have difficulty dressing or bathing? Answer Date of Assessment Author Status No 07/30/2020 10:46 PM SALES SUPERINTENDENT Nella Le RN Active * Because of a physical, mental, or emotional condition, do you have difficulty doing errands alone such as visiting a doctor's office or shopping? Answer Date of Assessment Author Status No 07/30/2020 10:46 PM SALES SUPERINTENDENT Nella Le RN Active documented as of this encounter Mental Status * Because of a physical, mental, or emotional condition, do you have serious difficulty concentrating, remembering, or making decisions? Answer Entry Date Author Status No 07/30/2020 10:46 PM SALES SUPERINTENDENT Nella Le RN Active documented in this encounter Progress Notes * Roberta Alex MD - 07/05/2023 2:40 PM CST HEMATOLOGY/ONCOLOGY NOTE IDENTIFYING DATA: Hillary Smalls is a 33-year-old female REASON FOR VISIT: Follow Up (Chronic ITP) and Lab Results DIAGNOSIS: 1. Chronic ITP [...] 250K, again discontinued per patient. Active Treatment: 1. 01/2023: On active surveillance with repeat platelet counts. 2. Intermittent IV Venofer and B12 supplements for anemia. INTERVAL HISTORY: Today Hillary returns for a regular followup visit. She is planning to return to work with restrictions to allow her to take intermittent breaks, especially with her migraines and low platelet counts. Platelet counts have ranged anywhere from 39K to 51K. She has noticed some nosebleeds. Her menstrual cycles are heavy when it gets closer to 35K while on IUD. She also does notice easy bruising on extre mities especially. REVIEW OF SYSTEMS: CONST: No fevers or chills. RESP: No shortness of breath. CV: No chest pain. : No urinary symptoms or frequency. Reviewed past medical history, surgical history, family history, social history. No changes except as noted. VITALS: Height: 5' 3 (1.6 m) , Weight: 179 lb 12.8 oz (81.6 kg) , BSA (Calculated - sq m): 1.78 sq meters , BP: 124/78 , Temp: 96.3 ??F (35.7 ??C) , Pulse: 66 , Resp: 18 PHYSICAL EXAMINATION: CONST: Pale, fatigued, tired, young female appearing of stated age. RESP: Chest clear to auscultation. Respiration even and unlabored. CV: Heart regular rate and rhythm without murmur. GI: Abdomen soft without mass, tenderness, or hernia. PSYCH: Appropriate mood and affect. NEURO: No speech difficulty. Alert and orientated to person, place, and time. Reviewed pertinent diagnostic tests, lab work, and imaging. These were reviewed with the patient. LABORATORY Lab Results Component Value Date/Time WBC 9.85 07/05/2023 02:43 PM HGB 13.5 07/05/2023 02:43 PM PLT 39 (L) 07/05/2023 02:43 PM NEUC 6.53 07/05/2023 02:43 PM CR 0.86 07/05/2023 02:43 PM K 3.9 07/05/2023 02:43 PM TBIL 0.2 07/05/2023 02:43 PM AST 17 07/05/2023 02:43 PM ALT 24 07/05/2023 02:43 PM ALKP 70 07/05/2023 02:43 PM FERRITIN 31.9 04/19/2023 09:35 AM ASSESSMENT AND PLAN: 1. Acute on chronic ITP with platelet counts ranging 39K to 55K, currently on close observation. 2. History of iron deficiency anemia. 3. History of chronic HCV, s/p hepatitis C antiviral treatment - appears to be in remission. - She is clinically stable with no overt signs of bleeding. Her menstrual cycles are heavy when theplatelet counts decrease to the low 30s. Today the platelet count is 39K and stable. She is not committed to start taking Promacta or Nplate at this time. She plans to return to work with certain restrictions and the paperwork was signed and given. - If platelet counts continue to drop less than 30K or there is overt bleeding, I strongly encouraged her to start taking thrombopoietin receptor agonist. - Repeat labs in 2 weeks and then change the interval to every 3 weeks as the platelet counts remain stable. - RTC in 3 months with repeat CBC, CMP, or sooner if needed. The patient verbalized understanding of plan of care and will call us sooner if needed with any questions or concerns. aml Roberta Alex MD CC: Alejandro Blevins MD S SUPERINTENDENT documented in this encounter Plan of Treatment Upcoming Encounters Date Type Department Care Team (Late st Contact Info) Description 09/25/2024 11:30 AM SALES SUPERINTENDENT Appointment [facility] [address] [facility] [facility] [place] [address] Roberta Alex MD [address] [place] [address] 09/25/2024 11:40 AM SALES SUPERINTENDENT Office Visit [address] [place] [address] Roberta Alex MD [address] [place] [address] documented as of this encounter Visit Diagnoses Diagnosis Iron deficiency anemia due to chronic blood loss [D50.0]- Primary Iron deficiency anemia secondary to blood loss (chronic) Chronic ITP (idiopathic thrombocytopenia) ([facility]/HCC [facility]/HCC) Immune thrombocytopenic purpura documented in this encounter Additional Health Concerns Infection Onset Date Last Indicated Resolved Time MRSA 06/05/2021 06/05/2021 documented as of this encounter Care Teams Plug Stitcher Relationship Specialty Start Date End Date Alejandro Blevins MD PCP - General FAMILY PRACTICE 12/10/19 documented as of this encounter
--- OUTSIDE RECORDS SUMMARY | 2024-07-11 05:39 | XMS_ITS | Encounter Summary ---
Author Organization [facility] Address [address] [place] [address]. [id number] [place] [address] Care Team Providers Care Sewing Room Supervisor Name Role Phone Alejandro Blevins MD Primary Care Provider [phone] Encounter Details Date Type Department Care Team (Latest Contact Info) Description 11/25/2023 Travel Social History Tobacco Use Types Packs/Day Years Used Date Smoking Tobacco: Every Day Cigarettes Smokeless Tobacco: Never Alcohol Use Standard Drinks/Week Comments Not Currently 0 (1 standard drink = 0.6 oz pur e alcohol) Comments No Sex and Gender Information Value Date Recorded Sex Assigned at Not on file Legal Sex Female 11:30 PM WAITER Gender Identity Female 11/10/2021 3:09 PM CDT Sexual Orientation Straight 11/10/2021 3: 09 PM CDT documented as of this encounter Functional Status * RETIRED Are you deaf or do you have serious difficulty hearing Answer Date of Assessment Author Status No 07/30/2020 10:48 PM WAITER Acti ve * RETIRED Are you blind or do you have serious difficulty seeing, even when wearing glasses? Answer Date of Assessment Author Status No 07/30/2020 10:46 PM WAITER Acti ve * Do you have serious difficulty walking or climbing stairs? Answer Date of Assessment Author Status No 07/30/2020 10:46 PM WAITER Nella Le RN Active * Do you have difficulty dressing or bathing? Answer Date of Assessment Author Status No 07/30/2020 10:46 PM WAITER Nella Le RN Active * Because of a physical, mental, or emotional condition, do you have difficulty doing errands alone such as visiting a doctor's office or shopping? Answer Date of Assessment Author Status No 07/30/2020 10:46 PM WAITER Nella Le RN Active documented as of this encounter Mental Status * Because of a physical, mental, or emotional condition, do you have serious difficulty concentrating, remembering, or making decisions? Answer Entry Date Author Status No 07/30/2020 10:46 PM WAITER Nella Le RN Active documented in this encounter Plan of Treatment Upcoming Encounters Date Type Department Care Team (Late st Contact Info) Description 09/25/2024 11:30 AM WAITER Appointment [facility] [address] [place] [address] Roberta Alex MD [address] [place] [address] 09/25/2024 11:40 AM WAITER Office Visit [facility] [address] [place] [address] Roberta Alex MD [address] [place] [address] documented as of this encounter Visit Diagnoses Not on filedocumented in this encounter Additional Health Concerns Infection Onset Date Last Indicated Resolved Time MRSA 06/05/2021 06/05/2021 documented as of this encounter Care Teams Sewing Room Supervisor Relationship Specialty Start Date End Date Alejandro Blevins MD PCP - General FAMILY PRACTICE 12/10/19 documented as of this encounter
--- OUTSIDE RECORDS SUMMARY | 2024-07-11 05:39 | XMS_ITS | Encounter Summary ---
Author Organization [facility] Address [address] [place] [address]. [place] [address] [place] [address] Care Team Providers Care Assistant Bookkeeper Name Role Phone Alejandro Blevins MD Primary Care Provider [phone] Encounter Details Date Type Department Care Team (Latest Contact Info) Description 06/19/2024 10:20 AM TROLLEY COACH DRIVER - 06/19/2024 11:59 PM [facility] Encounter [address] [place] [address] Roberta Alex MD [address] [place] [address] Discharge Disposition: Home or Self Care (Routine Discharge) Social History Tobacco Use Types Packs/Day Years Used Date Smoking Tobacco: Every Day Cigarettes Smokeless Tobacco: Never Alcohol Use Standard Drinks/Week Comments Not Currently 0 (1 standard drink = 0.6 oz pur e alcohol) Comments No Sex and Gender Information Value Date Recorded Sex Assigned at Not on file Legal Sex Female 11:30 PM TROLLEY COACH DRIVER Gender Identity Female 11/10/2021 3:09 PM CDT Sexual Orientation Straight 11/10/2021 3: 09 PM CDT documented as of this encounter Functional Status * RETIRED Are you deaf or do you have serious difficulty hearing Answer Date of Assessment Author Status No 07/30/2020 10:48 PM TROLLEY COACH DRIVER Acti ve * RETIRED Are you blind or do you have serious difficulty seeing, even when wearing glasses? Answer Date of Assessment Author Status No 07/30/2020 10:46 PM TROLLEY COACH DRIVER Acti ve * Do you have serious [...] SUBLINGUAL ROUTE DIRECTED FOR 30 DAYS. 04/01/2023 DOPTELET 20 MG Tab TAKE 1 TABLET BY MOUTH 1 TIME A DAY 30 tablet 3 06/05/2024 EPINEPHrine 0.3 MG/0.3ML injection 09/22/2023 escitalopram (LEXAPRO) [...] 01/09/2024 SUMAtriptan (IMITREX) 100 MG tablet 03/22/2023 documented as of this encounter Plan of Treatment Upcoming Encounters Date Type Department Care Team (Late st Contact Info) Description 09/25/2024 11:30 AM TROLLEY COACH DRIVER Appointment [facility] [address] [place] [address] Roberta Alex MD [address] [place], [place] [address] 09/25/2024 11:40 AM TROLLEY COACH DRIVER Office Visit [facility] [address] [place] [address] Roberta Alex MD [address] [place] [id number] documented as of this encounter Procedures Procedure Name Priority Date/Time Associated Diagnosis Comments CBC W/DIFF AUTOMATED Routine 06/19/2024 10:40 AM TROLLEY COACH DRIVER Thrombocytopenia (CMS/HCC) documented in this encounter Results * (ABNORMAL) CBC W/DIFF AUTOMATED (06/19/2024 10:40 AM TROLLEY COACH DRIVER) WBC 8.99 4.00 - 10.80 x10'3/uL 06/19/2024 10:55 AM TROLLEY COACH DRIVER [facility] RBC 4.87 4.10 - 5.40 x10'6/uL 06/19/2024 10:55 AM TROLLEY COACH DRIVER [facility] HGB 14.1 12.0 - 16.0 G/DL 06/19/2024 10:55 AM TROLLEY COACH DRIVER [facility] HCT 43.5 36.0 - 47.0 % 06/19/2024 10:55 AM TROLLEY COACH DRIVER [facility] MCV 89.3 78.0 - 100.0 FL 06/19/2024 10:55 AM TROLLEY COACH DRIVER [facility] MCH 29.0 27.0 - 31.0 PG 06/19/2024 10:55 AM TROLLEY COACH DRIVER [facility] MCHC 32.4(L) 33.0 - 36.0 G/DL 06/19/2024 10:55 AM [facility] RDW 13.9 11.5 - 14.5 % 06/19/2024 10:55 AM [facility] PLT 197 150 - 350 x10'3/uL 06/19/2024 10:55 AM [facility] MPV 13.0(H) 7.4 - 10.4 FL 06/19/2024 10:55 AM [facility] CBC COMMENT NORMAL REFERENCE RANGE NOT ESTABLISHED FOR THE PROPORTIONAL LEUKOCYTE DIFFERENTIAL. 06/19/2024 10:55 AM [facility] NEUTROPHILS % 60.3 % 06/19/2024 10:55 AM [facility] LYMPHOCYTES % 26.4 % 06/19/2024 10:55 AM [facility] MONOCYTES % 5.9 % 06/19/2024 10:55 AM [facility] EOSINOPHILS % 6.3 % 06/19/2024 10:55 AM [facility] BASOPHILS % 0.9 % 06/19/2024 10:55 AM [facility] IMMATURE GRANS % 0.2 % 06/19/20 10:55 AM [facility] NRBC % 0.0 % 06/19/2024 10:55 AM [facility] ABS. NEUTROPHILS 5.42 1.60 - 8.30 x10'3/uL 06/19/2024 10:55 AM [facility] ABS. LYMPHOCYTES 2.37 0.80 - 4.70 x10'3/uL 06/19/2024 10:55 AM [facility] ABS. MONOCYTES 0.53 0.00 - 1.50 x10'3/uL 06/19/2024 10:55 AM [facility] ABS. EOSINOPHILS 0.57(H) 0.00 - 0.40 x10'3/uL 06/19/2024 10:55 AM [facility] ABS. BASOPHILS 0.08 0.00 - 0.20 x10'3/uL 06/19/2024 10:55 AM [facility] ABS. IMMATURE GRANULOCYTES 0.02 0.00 - 0.03 x10'3/uL 06/19/2024 10:55 AM TROLLEY COACH DRIVER [facility] ABS. NUCLEATED RBC'S 0.00 0.00 - 0.01 x10'3/uL 06/19/2024 10:55 AM TROLLEY COACH DRIVER [facility] 06/19/2024 10:4 0 AM TROLLEY COACH DRIVER us Roberta Alex MD LABORATORY Final Result [facility] [address] [phone] documented in this encounter Visit Diagnoses Diagnosis Thrombocytopenia (CMS/HCC) Thrombocytopenia, unspecified documented in this encounter Additional Health Concerns Infection Onset Date Last Indicated Resolved Time MRSA 06/05/2021 06/05/2021 documented as of this encounter Care Teams Assistant Bookkeeper Relationship Specialty Start Date End Date Alejandro Blevins MD PCP - General FAMILY PRACTICE 12/10/19 documented as of this encounter
--- OUTSIDE RECORDS SUMMARY | 2024-07-11 05:39 | XMS_ITS | Encounter Summary ---
Author Organization [facility] Address [address] [place] [address]. [place], [place] [address] [place] [address] Care Team Providers Care Attendance Officer Name Role Phone Alejandro Blevins MD Primary Care Provider [phone] Encounter Details Date Type Department Care Team (Latest Contact Info) Description 06/19/2024 Travel Social History Tobacco Use Types Packs/Day Years Used Date Smoking Tobacco: Every Day Cigarettes Smokeless Tobacco: Never Alcohol Use Standard Drinks/Week Comments Not Currently 0 (1 standard drink = 0.6 oz pur e alcohol) Comments No Sex and Gender Information Value Date Recorded Sex Assigned at Not on file Legal Sex Female 11:30 PM TEAM TRUCK DRIVER Gender Identity Female 11/10/2021 3:09 PM CDT Sexual Orientation Straight 11/10/2021 3: 09 PM CDT documented as of this encounter Functional Status * RETIRED Are you deaf or do you have serious difficulty hearing Answer Date of Assessment Author Status No 07/30/2020 10:48 PM TEAM TRUCK DRIVER Acti ve * RETIRED Are you blind or do you have serious difficulty seeing, even when wearing glasses? Answer Date of Assessment Author Status No 07/30/2020 10:46 PM TEAM TRUCK DRIVER Acti ve * Do you have serious difficulty walking or climbing stairs? Answer Date of Assessment Author Status No 07/30/2020 10:46 PM TEAM TRUCK DRIVER Nella Le RN Active * Do you have difficulty dressing or bathing? Answer Date of Assessment Author Status No 07/30/2020 10:46 PM TEAM TRUCK DRIVER Nella Le RN Active * Because of a physical, mental, or emotional condition, do you have difficulty doing errands alone such as visiting a doctor's office or shopping? Answer Date of Assessment Author Status No 07/30/2020 10:46 PM TEAM TRUCK DRIVER Nella Le RN Active documented as of this encounter Mental Status * Because of a physical, mental, or emotional condition, do you have serious difficulty concentrating, remembering, or making decisions? Answer Entry Date Author Status No 07/30/2020 10:46 PM TEAM TRUCK DRIVER Nella Le RN Active documented in this encounter Plan of Treatment Upcoming Encounters Date Type Department Care Team (Late st Contact Info) Description 09/25/2024 11:30 AM TEAM TRUCK DRIVER Appointment [facility] [address] [facility] [place] [address] Roberta Alex MD [address] [place] [address] 09/25/2024 11:40 AM TEAM TRUCK DRIVER Office Visit [facility] [address] [place] [address] Roberta Alex MD [address] [place] [address] documented as of this encounter Visit Diagnoses Not on filedocumented in this encounter Additional Health Concerns Infection Onset Date Last Indicated Resolved Time MRSA 06/05/2021 06/05/2021 documented as of this encounter Care Teams Attendance Officer Relationship Specialty Start Date End Date Alejandro Blevins MD PCP - General FAMILY PRACTICE 12/10/19 documented as of this encounter
--- OUTSIDE RECORDS SUMMARY | 2024-07-11 05:39 | XMS_ITS | Encounter Summary ---
Author Organization [facility] Address [address] [place] [address]. [place], [place] [id number] [place] [address] Care Team Providers Care Zipper Ironer Name Role Phone Alejandro Blevins MD Primary Care Provider [phone] Encounter Details Date Type Department Care Team (Latest Contact Info) Description 03/19/2024 Travel Social History Tobacco Use Types Packs/Day Years Used Date Smoking Tobacco: Every Day Cigarettes Smokeless Tobacco: Never Alcohol Use Standard Drinks/Week Comments Not Currently 0 (1 standard drink = 0.6 oz pur e alcohol) Comments No Sex and Gender Information Value Date Recorded Sex Assigned at Not on file Legal Sex Female 11:30 PM CHILD CAREGIVER Gender Identity Female 11/10/2021 3:09 PM CDT Sexual Orientation Straight 11/10/2021 3: 09 PM CDT documented as of this encounter Functional Status * RETIRED Are you deaf or do you have serious difficulty hearing Answer Date of Assessment Author Status No 07/30/2020 10:48 PM CHILD CAREGIVER Acti ve * RETIRED Are you blind or do you have serious difficulty seeing, even when wearing glasses? Answer Date of Assessment Author Status No 07/30/2020 10:46 PM CHILD CAREGIVER Acti ve * Do you have serious difficulty walking or climbing stairs? Answer Date of Assessment Author Status No 07/30/2020 10:46 PM CHILD CAREGIVER Nella Le RN Active * Do you have difficulty dressing or bathing? Answer Date of Assessment Author Status No 07/30/2020 10:46 PM CHILD CAREGIVER Nella Le RN Active * Because of a physical, mental, or emotional condition, do you have difficulty doing errands alone such as visiting a doctor's office or shopping? Answer Date of Assessment Author Status No 07/30/2020 10:46 PM CHILD CAREGIVER Nella Le RN Active documented as of this encounter Mental Status * Because of a physical, mental, or emotional condition, do you have serious difficulty concentrating, remembering, or making decisions? Answer Entry Date Author Status No 07/30/2020 10:46 PM CHILD CAREGIVER Nella Le RN Active documented in this encounter Plan of Treatment Upcoming Encounters Date Type Department Care Team (Late st Contact Info) Description 09/25/2024 11:30 AM CHILD CAREGIVER Appointment [facility] [address] [facility] [place] [address] Roberta Alex MD [address] [place] [address] 09/25/2024 11:40 AM CHILD CAREGIVER Office Visit [facility] [address] [place] [address] Roberta Alex MD [address] [place] [address] documented as of this encounter Visit Diagnoses Not on filedocumented in this encounter Additional Health Concerns Infection Onset Date Last Indicated Resolved Time MRSA 06/05/2021 06/05/2021 documented as of this encounter Care Teams Zipper Ironer Relationship Specialty Start Date End Date Alejandro Blevins MD PCP - General FAMILY PRACTICE 12/10/19 documented as of this encounter
--- OUTSIDE RECORDS SUMMARY | 2024-07-11 05:39 | XMS_ITS | Encounter Summary ---
Author Organization [facility] Address [facility] [place] [address] [place] [address] Care Team Providers Care Manager Underwriting Name Role Phone Alejandro Blevins MD Primary Care Provider Encounter Details Date Type Department Care Team (Latest Contact Info) Description 11/25/2023 1:24 PM CDT - 11/25/2023 11:59 PM CDT Hospital Encounter [address] [place] [address] Roberta Alex MD [address] [place] [address] Discharge Disposition: Home or Self Care (Routine Discharge) Social History Tobacco Use Types Packs/Day Years Used Date Smoking Tobacco: Every Day Cigarettes Smokeless Tobacco: Never Alcohol Use Standard Drinks/Week Comments Not Currently 0 (1 standard drink = 0.6 oz pur e alcohol) Comments No Sex and Gender Information Value Date Recorded Sex Assigned at Not on file Legal Sex Female 11:30 PM FARM CONTRACTOR Gender Identity Female 11/10/2021 3:09 PM CDT Sexual Orientation Straight 11/10/2021 3: 09 PM CDT documented as of this encounter Functional Status * RETIRED Are you deaf or do you have serious difficulty hearing Answer Date of Assessment Author Status No 07/30/2020 10:48 PM FARM CONTRACTOR Acti ve * RETIRED Are you blind or do you have serious difficulty seeing, even when wearing glasses? Answer Date of Assessment Author Status No 07/30/2020 10:46 PM FARM CONTRACTOR Acti ve * Do you have serious [...] st Contact Info) Description 09/25/2024 11:30 AM FARM CONTRACTOR Appointment [facility] [address] [place] [address] Roberta Alex MD [address] [place] [address] 09/25/2024 11:40 AM FARM CONTRACTOR Office Visit [facility] [address] [place] [address] Roberta Alex MD [address] [place], [place] [id number] documented as of this encounter Procedures Procedure Name Priority Date/Time Associated Diagnosis Comments CBC W/DIFF AUTOMATED Routine 11/25/2023 1:41 PM CDT Iron deficiency anemia due to chronic blood loss documented in this encounter Results * (ABNORMAL) CBC W/DIFF AUTOMATED (11/25/2023 1:41 PM CDT) WBC 9.36 4.00 - 10.80 x10'3/uL 11/25/2023 1:54 PM CDT [facility] RBC 4.44 4.10 - 5.40 x10'6/uL 11/25/2023 1:54 PM CDT [facility] HGB 12.5 12.0 - 16.0 G/DL 11/25/2023 1:54 PM CDT [facility] HCT 39.4 36.0 - 47.0 % 11/25/2023 1:54 PM CDT [facility] MCV 88.7 78.0 - 100.0 FL 11/25/2023 1:54 PM CD[address] [facility] MCH 28.2 27.0 - 31.0 PG 11/25/2023 1:54 PM CD[address] [facility] MCHC 31.7(L) 33.0 - 36.0 G/DL 11/25/2023 1:54 PM CD[address] [facility] RDW 13.0 11.5 - 14.5 % 11/25/2023 1:54 PM CDT [facility] PLT 148(L) 150 - 350 x10'3/uL 11/25/2023 1:54 PM CDT [facility] MPV 14.1(H) 7.4 - 10.4 FL 11/25/2023 1:54 PM CDT [facility] CBC COMMENT NORMAL REFERENCE RANGE NOT ESTABLISHED FOR THE PROPORTIONAL LEUKOCYTE DIFFERENTIAL. 11/25/2023 1:54 PM [address] [facility] NEUTROPHILS % 65.9 % 11/25/2023 1:54 PM CD[address] [facility] LYMPHOCYTES % 17.4 % 11/25/2023 1:54 PM CD[address] [facility] MONOCYTES % 6.2 % 11/25/2023 1:54 PM CD[address] [facility] EOSINOPHILS % 9.7 % 11/25/2023 1:54 PM CD[address] [facility] BASOPHILS % 0.6 % 11/25/2023 1:54 PM CDT [facility] IMMATURE GRANS % 0.2 % 11/25/19 1:54 PM CD[address] [facility] NRBC 0.0 % 11/25/2023 1:54 PM CD[address] [facility] ABS. NEUTROPHILS 6.16 1.60 - 8.30 x10'3/uL 11/25/2023 1:54 PM CD[address] [facility] ABS. LYMPHOCYTES 1.63 0.80 - 4.70 x10'3/uL 11/25/2023 1:54 PM CDT [facility] ABS. MONOCYTES 0.58 0.00 - 1.50 x10'3/uL 11/25/2023 1:54 PM CDT [facility] ABS. EOSINOPHILS 0.91(H) 0.00 - 0.40 x10'3/uL 11/25/2023 1:54 PM CD[address] [facility] ABS. BASOPHILS 0.06 0.00 - 0.20 x10'3/uL 11/25/2023 1:54 PM CD[address] [facility] ABS. IMMATURE GRANULOCYTES 0.02 0.00 - 0.03 x10'3/uL 11/25/2023 1:54 PM CD[address] [facility] ABS. NUCLEATED RBC'S 0.00 0.00 x10'3/uL 11/25/2023 1:54 PM CD[address] [facility] 11/25/2023 1:41 PM CDT us Roberta Alex MD LABORATORY Final Result [facility] [address] [place] [address], documented in this encounter Visit Diagnoses Diagnosis Iron deficiency anemia due to chronic blood loss Iron deficiency anemia secondary to blood loss (chronic) documented in this encounter Additional Health Concerns Infection Onset Date Last Indicated Resolved Time MRSA 06/05/2021 06/05/2021 documented as of this encounter Care Teams Manager Underwriting Relationship Specialty Start Date End Date Alejandro Blevins MD PCP - General FAMILY PRACTICE 12/10/19 documented as of this encounter
--- OUTSIDE RECORDS SUMMARY | 2024-07-11 05:40 | XMS_ITS | Encounter Summary ---
Author Organization [facility] Address [facility] [place] [address] [place] [address] Care Team Providers Care Whale Trainer Name Role Phone Alejandro Blevins MD Primary Care Provider [phone] Encounter Details Date Type Department Care Team (Late st Contact Info) Description 05/03/2023 Orders Only [address] [place] [address] Roberta Alex MD [address] [place] [address] Social History Tobacco Use Types Packs/Day Years Used Date Smoking Tobacco: Every Day Cigarettes Smokeless Tobacco: Never Alcohol Use Standard Drinks/Week Comments Not Currently 0 (1 standard drink = 0.6 oz pur e alcohol) Comments No Sex and Gender Information Value Date Recorded Sex Assigned at Not on file Legal Sex Female 11:30 PM CAMPAIGN SPECIALIST Gender Identity Female 11/10/2021 3:09 PM CDT Sexual Orientation Straight 11/10/2021 3: 09 PM CDT documented as of this encounter Functional Status * RETIRED Are you deaf or do you have serious difficulty hearing Answer Date of Assessment Author Status No 07/30/2020 10:48 PM CAMPAIGN SPECIALIST Acti ve * RETIRED Are you blind or do you have serious difficulty seeing, even when wearing glasses? Answer Date of Assessment Author Status No 07/30/2020 10:46 PM CAMPAIGN SPECIALIST Acti ve * Do you have serious difficulty walking or climbing stairs? Answer Date of Assessment Author Status No 07/30/2020 10:46 PM CAMPAIGN SPECIALIST Bringuet, Nella C, RN Active * Do you have difficulty dressing or bathing? Answer Date of Assessment Author Status No 07/30/2020 10:46 PM CAMPAIGN SPECIALIST Nella Le RN Active * Because of [...] Date Author Status No 07/30/2020 10:46 PM CAMPAIGN SPECIALIST Nella Le RN Active documented in this encounter Plan of Treatment Upcoming Encounters Date Type Department Care Team (Late st Contact Info) Description 09/25/2024 11:30 AM CAMPAIGN SPECIALIST Appointment [facility] [address] [place] [address] Roberta Alex MD [address] [place] [address] 09/25/2024 11:40 AM CAMPAIGN SPECIALIST Office Visit [facility] [address] [place] [address] Roberta Alex MD [address] [place] [address] documented as of this encounter Results * COMPREHENSIVE METABOLIC PANEL (07/05/2023 2:43 PM CAMPAIGN SPECIALIST) SODIUM S/P/B 140 136 - 145 MMOL/L 07/05/2023 3:39 PM CAMPAIGN SPECIALIST [facility] POTASSIUM S/P/B 3.9 3.5 - 5.1 MMOL/L 07/05/2023 3:39 PM CAMPAIGN SPECIALIST [facility] CHLORIDE S/P/B 105 98 - 107 MMOL/L 07/05/2023 3:39 PM [facility] CO2 25.7 21.0 - 32.0 MMOL/L 07/05/2023 3:39 PM CAMPAIGN SPECIALIST [facility] GLUCOSE 91 70 - 99 MG/DL 07/05/2023 3:39 PM [facility] Comment: MILD LIPEMIA. RESULT MAY BE AFFECTED. FASTING GLUCOSE 100 TO 125 MG/DL IS CONSISTENT WITH IMPAIRED FASTING GLUCOSE. FASTING GLUCOSE >125 MG/DL IS CONSISTENT WITH DIABETES. RANDOM GLUCOSE >200 MG/DL WITH HYPERGLYCEMIC SYMPTOMS IS CONSISTENT WITH DIABETES. PER ADA GUIDELINES BUN 16 6 - 24 MG/DL 07/05/2023 3:39 PM [facility] CREATININE S/P/B 0.86 0.55 - 1.02 MG/DL 07/05/2023 3:39 PM [facility] CALCIUM S/P/B 8.5 8.4 - 10.5 MG/DL 07/05/2023 3:39 PM [facility] BILIRUBIN TOTAL S/P/B 0.2 0.2 - 1.0 MG/DL 07/05/2023 3:39 PM [facility] Comment: THIS ASSAY IS NOT RECOMMENDED FOR PATIENTS UNDERGOING TREATMENT WITH ELTROMBOPAG DUE TO THE POTENTIAL FOR FALSELY ELEVATED RESULTS. ALKALINE PHOSPHATASE S/P/B 70 37 - 98 U/L 07/05/2023 3:39 PM [facility] AST 17 15 - 37 U/L 07/05/2023 3:39 PM [facility] ALT 24 14 - 59 U/L 07/05/2023 3:39 PM [facility] TOTAL PROTEIN S/P/B 6.9 6.4 - 8.2 G/DL 07/05/2023 3:39 PM [facility] ALBUMIN S/P/B 3.5 3.4 - 5.0 G/DL 07/05/2023 3:39 PM [facility] ANION GAP 9.3 5.0 - 15.0 MMOL/L 07/05/2023 3:39 PM [facility] OSMOLALITY (CALC) 291 MOSM/KG 023 3:39 PM [facility] Comment:REFERENCE RANGE NOT ESTABLISHED GFR ESTIMATE >90 >89 ML/MIN/1. 73 M2 07/05/2023 3:39 PM [facility] GFR NOTES GFR REFERENCE S: 07/05/2023 3:39 PM CAMPAIGN SPECIALIST [facility] Comment: THE ESTIMATED GFR [...] FAILURE: <15 ml/min/1.73 m2 07/05/2023 2:43 PM CAMPAIGN SPECIALIST us Roberta Alex MD LABORATORY Final Result [facility] [address] [address], * (ABNORMAL) CBC W/DIFF AUTOMATED (07/05/2023 2:43 PM CAMPAIGN SPECIALIST) WBC 9.85 4.00 - 10.80 x10'3/uL 07/05/2023 3:09 PM CAMPAIGN SPECIALIST [facility] RBC 4.63 4.10 - 5.40 x10'6/uL 07/05/2023 3:09 PM CAMPAIGN SPECIALIST [facility] HGB 13.5 12.0 - 16.0 G/DL 07/05/2023 3:09 PM CAMPAIGN SPECIALIST [facility] HCT 42.4 36.0 - 47.0 % 07/05/2023 3:09 PM CAMPAIGN SPECIALIST [facility] MCV 91.6 78.0 - 100.0 FL 07/05/2023 3:09 PM CAMPAIGN SPECIALIST [facility] MCH 29.2 27.0 - 31.0 PG 07/05/2023 3:09 PM CAMPAIGN SPECIALIST [facility] MCHC 31.8(L) 33.0 - 36.0 G/DL 07/05/2023 3:09 PM CAMPAIGN SPECIALIST [facility] RDW 12.9 11.5 - 14.5 % 07/05/2023 3:09 PM CAMPAIGN SPECIALIST [facility] PLT 39(L) 150 - 350 x10'3/uL 07/05/2023 3:09 PM [facility] MPV RESULTS NOT AVAILABLE 7.4 - 10.4 FL 07/05/2023 3:09 PM CAMPAIGN SPECIALIST [facility] CBC COMMENT NORMAL REFERENCE RANGE NOT ESTABLISHED FOR THE PROPORTIONAL LEUKOCYTE DIFFERENTIAL. 07/05/2023 3:09 PM CAMPAIGN SPECIALIST [facility] NEUTROPHILS % 66.3 % 07/05/2023 3:20 PM [facility] LYMPHOCYTES % 18.0 % 07/05/2023 3:20 PM [facility] MONOCYTES % 5.5 % 07/05/2023 3:20 PM [facility] EOSINOPHILS % 9.0 % 07/05/2023 3:20 PM [facility] BASOPHILS % 0.8 % 07/05/2023 3:20 PM CAMPAIGN SPECIALIST [facility] IMMATURE GRANS % 0.4 % 07/05/20 3:20 PM CAMPAIGN SPECIALIST [facility] NRBC 0.0 % 07/05/2023 3:20 PM [facility] ABS. NEUTROPHILS 6.53 1.60 - 8.30 x10'3/uL 07/05/2023 3:20 PM CAMPAIGN SPECIALIST [facility] ABS. LYMPHOCYTES 1.77 0.80 - 4.70 x10'3/uL 07/05/2023 3:20 PM [facility] ABS. MONOCYTES 0.54 0.00 - 1.50 x10'3/uL 07/05/2023 3:20 PM [facility] ABS. EOSINOPHILS 0.89(H) 0.00 - 0.40 x10'3/uL 07/05/2023 3:20 PM [facility] ABS. BASOPHILS 0.08 0.00 - 0.20 x10'3/uL 07/05/2023 3:20 PM [facility] ABS. IMMATURE GRANULOCYTES 0.04(H) 0.00 - 0.03 x10'3/uL 07/05/2023 3:20 PM CAMPAIGN SPECIALIST [facility] ABS. NUCLEATED RBC'S 0.00 0.00 x10'3/uL 07/05/2023 3:20 PM CAMPAIGN SPECIALIST [facility] PLT MORPH. DECREASED 07/05/2023 3:20 PM CAMPAIGN SPECIALIST [facility] RBC MORPHOLOGY 1+ 07/05/2023 3:20 PM CAMPAIGN SPECIALIST [facility] Comment:ANISOCYTOSIS 07/05/2023 2:43 PM CAMPAIGN SPECIALIST us Roberta Alex MD LABORATORY Final Result [facility] [address] [place] [address], documented in this encounter Visit Diagnoses Diagnosis Chronic ITP (idiopathic thrombocytopenia) ([facility] Primary Immune thrombocytopenic purpura documented in this encounter Additional Health Concerns Infection Onset Date Last Indicated Resolved Time MRSA 06/05/2021 06/05/2021 documented as of this encounter Care Teams Whale Trainer Relationship Specialty Start Date End Date Alejandro Blevins MD PCP - General FAMILY PRACTICE 12/10/19 documented as of this encounter
--- OUTSIDE RECORDS SUMMARY | 2024-07-11 05:40 | XMS_ITS | Encounter Summary ---
Author Organization [facility] Address [address] [place] [address]. [place], [place] [address] [place] [address] Care Team Providers Care Brake Repairer Air Name Role Phone Alejandro Blevins MD Primary Care Provider [phone] Encounter Details Date Type Department Care Team (Latest Contact Info) Description 05/03/2023 Travel Social History Tobacco Use Types Packs/Day Years Used Date Smoking Tobacco: Every Day Cigarettes Smokeless Tobacco: Never Alcohol Use Standard Drinks/Week Comments Not Currently 0 (1 standard drink = 0.6 oz pur e alcohol) Comments No Sex and Gender Information Value Date Recorded Sex Assigned at Not on file Legal Sex Female 11:30 PM TOBACCO ACREAGE MEASURER Gender Identity Female 11/10/2021 3:09 PM CDT Sexual Orientation Straight 11/10/2021 3: 09 PM CDT documented as of this encounter Functional Status * RETIRED Are you deaf or do you have serious difficulty hearing Answer Date of Assessment Author Status No 07/30/2020 10:48 PM TOBACCO ACREAGE MEASURER Acti ve * RETIRED Are you blind or do you have serious difficulty seeing, even when wearing glasses? Answer Date of Assessment Author Status No 07/30/2020 10:46 PM TOBACCO ACREAGE MEASURER Acti ve * Do you have serious difficulty walking or climbing stairs? Answer Date of Assessment Author Status No 07/30/2020 10:46 PM TOBACCO ACREAGE MEASURER Nella Le RN Active * Do you have difficulty dressing or bathing? Answer Date of Assessment Author Status No 07/30/2020 10:46 PM TOBACCO ACREAGE MEASURER Nella Le RN Active * Because of a physical, mental, or emotional condition, do you have difficulty doing errands alone such as visiting a doctor's office or shopping? Answer Date of Assessment Author Status No 07/30/2020 10:46 PM TOBACCO ACREAGE MEASURER Nella Le RN Active documented as of this encounter Mental Status * Because of a physical, mental, or emotional condition, do you have serious difficulty concentrating, remembering, or making decisions? Answer Entry Date Author Status No 07/30/2020 10:46 PM TOBACCO ACREAGE MEASURER Nella Le RN Active documented in this encounter Plan of Treatment Upcoming Encounters Date Type Department Care Team (Late st Contact Info) Description 09/25/2024 11:30 AM TOBACCO ACREAGE MEASURER Appointment [facility] [address] [place] [address] Roberta Alex MD [address] [place] [address] 09/25/2024 11:40 AM TOBACCO ACREAGE MEASURER Office Visit [facility] [address] [place] [address] Roberta Alex MD [address] [place] [address] documented as of this encounter Visit Diagnoses Not on filedocumented in this encounter Additional Health Concerns Infection Onset Date Last Indicated Resolved Time MRSA 06/05/2021 06/05/2021 documented as of this encounter Care Teams Brake Repairer Air Relationship Specialty Start Date End Date Alejandro Blevins MD PCP - General FAMILY PRACTICE 12/10/19 documented as of this encounter
--- OUTSIDE RECORDS SUMMARY | 2024-07-11 05:40 | XMS_ITS | Encounter Summary ---
Author Organization [facility] Address [address] [place] [address]. [place] [address] [place] [address] Care Team Providers Care Toe Stapler Name Role Phone Alejandro Blevins MD Primary Care Provider Reason for Visit * Reason Comments Follow Up Acute ITP Lab Results Encounter Details Date Type Department Care Team (Late st Contact Info) Description 05/03/2023 2:00 PM CDT Office Visit [address] [place] [address] Roberta Alex MD [address] [place] [address] Follow Up (Acute ITP); Lab Results Social History Tobacco Use [...] on file Legal Sex Female 11:30 PM DENTAL INTERN Gender Identity Female 11/10/2021 3:09 PM CDT Sexual Orientation Straight 11/10/2021 3: 09 PM CDT documented as of this encounter Last Filed Vital Signs Vital Sign Reading Time Taken Comments Blood Pressure 131/80 05/03/2023 2:29 PM CDT Pulse 77 05/03/2023 2:29 PM CDT Temperature 35.9 ??C (96.7 ??F) 05/03/2023 2:29 PM CD T Respiratory Rate 20 05/03/2023 2:29 PM CDT Oxygen Saturation 100% 05/03/2023 2:29 PM CDT Inhaled Oxygen Concentration - - Weight 78.2 kg (172 lb 6.4 oz) 05/03/2023 2:29 P M CDT Height - - Body Mass Index 30.54 10/28/2022 3:44 PM CDT documented in this encounter Functional Status * RETIRED Are you deaf or do you have serious difficulty hearing Answer Date of Assessment Author Status No 07/30/2020 10:48 PM DENTAL INTERN Acti ve * RETIRED Are you blind or do you have serious difficulty seeing, even when wearing glasses? Answer Date of Assessment Author Status No 07/30/2020 10:46 PM DENTAL INTERN Acti ve * Do you have serious [...] Progress Notes * Roberta Alex MD - 05/03/2023 2:00 PM CDT HEMATOLOGY/ONCOLOGY NOTE IDENTIFYING DATA: Hillary Smalls is a 32-year-old female REASON FOR VISIT: Follow Up (Acute ITP) and Lab Results DIAGNOSIS: 1. Chronic [...] returns for a regular followup visit. She previously was on medical leave due to ongoingsevere fatigue with her fluctuating platelet counts, in spite of which she referred to stay on observation and not choose Nplate. Her platelet counts have been ranging from 45K to 55K in the last 2-3months off of any treatment. She does notice vaginal bleeding, reports it is more spotting than a menstrual cycle. She is on an IUD and when her counts go low, she usually has bleeding. She denies any nosebleeds, blood in stool, or dark black colored stool. 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 She would like to go back to work but because of her fatigue and thrombocytopenia, requested if we could have her on light restriction. She certainly is a candidate for it and we will give her a letter stating that. She has ongoing extreme fatigue anddoes notice fatigue with low counts and high counts. I suspect depression playing a role but patient would like to avoid any antidepressants at this time. REVIEW OF SYSTEMS: CONST: No fevers or chills. RESP: No shortness of breath. CV: No chest pain. : No urinary symptoms or frequency. Reviewed past medical history, surgical history, family history, social history. No changes except as noted. VITALS: Height: 5' 3 (1.6 m) , Weight: 78.2 kg (172 lb 6.4 oz) , BSA (Calculated - sq m): 1.78 sq meters , BP: 131/80 , Temp: 96.7 ??F (35.9 ??C) , Pulse: 77 , Resp: 20 PHYSICAL EXAMINATION: CONST: Pale, fatigued, tired, young [...] LABORATORY Lab Results Component Value Date/Time WBC 11.78 (H) 04/26/2023 01:13 PM HGB 13.1 04/26/2023 01:13 PM PLT 44 (L) 04/26/2023 01:13 PM NEUC 9.20 (H) 04/26/2023 01:13 PM CR 0.77 12/07/2022 10:15 AM K 4.5 12/07/2022 10:15 AM TBIL 0.3 12/07/2022 10:15 AM AST 22 12/07/2022 10:15 AM ALT 16 12/07/2022 10:15 AM ALKP 70 12/07/2022 10:15 AM FERRITIN 31.9 04/19/2023 09:35 AM ASSESSMENT AND PLAN: 1. History of relapsed/chronic ITP with platelet counts ranging 45K to 55K. 2. History of iron deficiency anemia. 3. History of chronic HCV, s/p hepatitis C antiviral treatment - appears to be in remission. - Recent CBC was around 50K. Today CBC is pending. She complains of extreme fatigued associated with low platelet counts. She is pretty responsive to Nplate. Previously, I was worried about compliance with oral medications but she reassured that if we were to choose oral medications such as TPO agonists - Avtrombopag - that she would be willing to try. I agree that once a week Romiplostim injections might be hard for her. We again discussed about the goals with medications - that it was not tonormalize her platelet counts but to improve her platelet counts to be at a safer number. We will try to improve it to 50K to 75K and we will keep her at the lowest dose possible. She is worried about the side effects which is understandable. Teaching materials will be provided based on her CBC counts today. She still remains a little hesitant to try medications but would like to continue close observation. - We provided with a letter back to work with light restrictions due to moderate thrombocytopenia. 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 - She also complains of possible right flank pain and a UTI. I will check a urine sample today to ensure she has no brewing infection. - I also advised to follow up with PCP regarding an antidepressant. - RTC in 2 months or sooner if needed. I spent a considerable amount of time discussing alternativetreatment options for ITP, precautions, red flags, depression playing a role in fatigue. The patient verbalized understanding of plan of care and will call us sooner if needed with any questions or concerns. aml Roberta Alex MD CC: Alejandro Blevins MD documented in this encounter Plan of Treatment Upcoming Encounters Date Type Department Care Team (Late st Contact Info) Description 09/25/2024 11:30 AM DENTAL INTERN Appointment [facility] [address] [place] [address] Roberta Alex MD [address] [place] [address] 09/25/2024 11:40 AM DENTAL INTERN Office Visit [facility] [place] [address] Roberta Alex MD [address] [place] [address] documented as of this encounter Visit Diagnoses Diagnosis Chronic ITP (idiopathic thrombocytopenia) ([facility] Primary Immune thrombocytopenic purpura Iron deficiency anemia secondary to inadequate dietary iron intake documented in this encounter Additional Health Concerns Infection Onset Date Last Indicated Resolved Time MRSA 06/05/2021 06/05/2021 documented as of this encounter Care Teams Toe Stapler Relationship Specialty Start Date End Date Alejandro Blevins MD PCP - General FAMILY PRACTICE 12/10/19 documented as of this encounter
--- OUTSIDE RECORDS SUMMARY | 2024-07-11 05:40 | XMS_ITS | Encounter Summary ---
Author Organization [facility] Address [address] [place] [address]. [place] [address] [place] [address] Care Team Providers Care Expressive Art Therapist Name Role Phone Alejandro Blevins MD Primary Care Provider [phone] Encounter Details Date Type Department Care Team (Latest Contact Info) Description 01/03/2023 12:47 PM CDT Hospital Encounter [facility] [address] [facility] [place] [address] Carey Pang, APNP [address] [place] [id number] Discharge Disposition: Home or Self Care (Routine Discharge) Social History Tobacco Use Types Packs/Day Years Used Date Smoking Tobacco: Every Day Cigarettes Smokeless Tobacco: Never Alcohol Use Standard Drinks/Week Comments Not Currently 0 (1 standard drink = 0.6 oz pur e alcohol) Comments No Sex and Gender Information Value Date Recorded Sex Assigned at Not on file Legal Sex Female 11:30 PM AUCTION BLOCK CLERK Gender Identity Female 11/10/2021 3:09 PM CDT Sexual Orientation Straight 11/10/2021 3: 09 PM CDT COVID-19 Exposure Response Date Recorded In the last 10 days, have yo u been in contact with someone who was confirmed or suspected to have Coronavirus/COVID-19? No / Unsure 01/03/2023 12:47 PM CDT documented as of this encounter Functional Status * RETIRED Are you deaf or do you have serious difficulty hearing Answer Date of Assessment Author Status No 07/30/2020 10:48 PM AUCTION BLOCK CLERK Acti ve * RETIRED Are you blind or do you have serious difficulty seeing, even when wearing glasses? Answer Date of Assessment Author Status No 07/30/2020 10:46 PM AUCTION BLOCK CLERK Acti ve * Do you have [...] this encounter Medications at Time of Discharge aspirin-acetamino phen-caffeine (EXCEDRIN MIGRAINE) 250-250-65 MG tablet Take 1 tablet by mouth every 6 (six) hours as needed for Pain. ibuprofen (MOTRIN) 200 MG tablet Take 3 tablets (600 mg total) by mouth every 6 (six) hours as needed for Pain. omeprazole (PRILOSEC) 20 MG capsuleIndication s:Acute ITP (CMS/HCC HHS/HCC) Take 1 capsule (20 mg total) by mouth daily. 30 capsule 1 12/07/2022 04/11/2023 documented as of this encounter Plan of Treatment Upcoming Encounters Date Type Department Care Team (Late st Contact Info) Description 09/25/2024 11:30 AM AUCTION BLOCK CLERK Appointment [facility] [place] [address] Roberta Alex MD [address] [place] [address] 09/25/2024 11:40 AM AUCTION BLOCK CLERK Office Visit [facility] [place] [address] [address] Roberta Alex MD [address] [place] [address] documented as of this encounter Procedures Procedure Name Priority Date/Time Associated Diagnosis Comments CBC W/DIFF AUTOMATED Routine 01/03/2023 12:55 PM CDT Thrombocytopenia documented in this encounter Results * (ABNORMAL) CBC W/DIFF AUTOMATED (01/03/2023 12:55 PM CDT) WBC 10.60 4.00 - 10.80 x10'3/uL 01/03/2023 1:54 PM CDT [facility] RBC 4.97 4.10 - 5.40 x10'6/uL 01/03/2023 1:54 PM CDT [facility] HGB 14.4 12.0 - 16.0 G/DL 01/03/2023 1:54 PM CDT [facility] HCT 44.5 36.0 - 47.0 % 01/03/2023 1:54 PM CDT [facility] MCV 89.5 78.0 - 100.0 FL 01/03/2023 1:54 PM CDT [facility] MCH 29.0 27.0 - 31.0 PG 01/03/2023 1:54 PM CDT [facility] MCHC 32.4(L) 33.0 - 36.0 G/DL 01/03/2023 1:54 PM CDT [facility] RDW 12.7 11.5 - 14.5 % 01/03/2023 1:54 PM CDT [facility] PLT 35(L) 150 - 350 x10'3/uL 01/03/2023 1:54 PM CDT [facility] MPV RESULTS NOT AVAILABLE 7.4 - 10.4 FL 01/03/2023 1:54 PM CDT [facility] CBC COMMENT NORMAL REFERENCE RANGE NOT ESTABLISHED FOR THE PROPORTIONAL LEUKOCYTE DIFFERENTIAL. 01/03/2023 1:54 PM CDT [facility] NEUTROPHILS % 71.6 % 01/03/2023 1:56 PM CDT [facility] LYMPHOCYTES % 18.0 % 01/03/2023 1:56 PM CDT [facility] MONOCYTES % 5.3 % 01/03/2023 1:56 PM CDT [facility] EOSINOPHILS % 4.2 % 01/03/2023 1:56 PM CDT [facility] BASOPHILS % 0.6 % 01/03/2023 1:56 PM CDT [facility] IMMATURE GRANS % 0.3 % 01/04/20 1:56 PM CDT [facility] NRBC 0.0 % 01/03/2023 1:56 PM CDT [facility] ABS. NEUTROPHILS 7.59 1.60 - 8.30 x10'3/uL 01/03/2023 1:56 PM CDT [facility] ABS. LYMPHOCYTES 1.91 0.80 - 4.70 x10'3/uL 01/03/2023 1:56 PM CDT [facility] ABS. MONOCYTES 0.56 0.00 - 1.50 x10'3/uL 01/03/2023 1:56 PM CDT [facility] ABS. EOSINOPHILS 0.45(H) 0.00 - 0.40 x10'3/uL 01/03/2023 1:56 PM CDT [facility] ABS. BASOPHILS 0.06 0.00 - 0.20 x10'3/uL 01/03/2023 1:56 PM CDT [facility] ABS. IMMATURE GRANULOCYTES 0.03 0.00 - 0.03 x10'3/uL 01/03/2023 1:56 PM CDT [facility] ABS. NUCLEATED RBC'S 0.00 0.00 x10'3/uL 01/03/2023 1:56 PM CDT [facility] PLT MORPH. DECREASED 01/03/2023 1:56 PM CDT [facility] RBC MORPHOLOGY NORMAL 01/03/2023 1:56 PM CDT [facility] 01/03/2023 12:5 5 PM CDT [facility] Final Res ult [facility] [address] [place] [address], documented in this encounter Visit Diagnoses Diagnosis Thrombocytopenia (CMS/HCC) Thrombocytopenia, unspecified documented in this encounter Additional Health Concerns Infection Onset Date Last Indicated Resolved Time MRSA 06/05/2021 06/05/2021 documented as of this encounter Care Teams Expressive Art Therapist Relationship Specialty Start Date End Date Alejandro Blevins MD PCP - General FAMILY PRACTICE 12/10/19 documented as of this encounter
--- OUTSIDE RECORDS SUMMARY | 2024-07-11 05:40 | XMS_ITS | Encounter Summary ---
Author Organization [facility] Address [facility] [place] [address] [place] [address] Care Team Providers Care Pension Consultant Name Role Phone Alejandro Blevins MD Primary Care Provider [phone] Reason for Visit * Reason Comments Injection * Treatment/Therapy Plan Authorization (Routine) - Closed Specialty Diagnoses / Procedures Referred By Contac t Referred To Contact Diagnoses Chronic ITP (idiopathic thrombocytopenia) ([facility]/HCC [facility]/HCC) Thrombocytopenia ([facility]) Procedures ITP RomiPLOStim Roberta Alex MD [address] [place] [address] Phone: tel: fax: [facility] [place] [address] Phone: tel: Referral ID Status Reason Start Date Expiration Date Visits Re quested Visits Authorized [id number] Closed 12/23/2022 03/25/2023 1 1 Encounter Details Date Type Department Care Team (Latest Contact Info) Description 01/03/2023 12:48 PM CDT - 01/03/2023 11:59 PM CDT Hospital Encounter [facility] [place] [place] [address] Roberta Alex MD [address] [place] [address] Injection Discharge Disposition: Home or Self Care (Routine [...] on file Legal Sex Female 11:30 PM FINE CRAFT ARTIST Gender Identity Female 11/10/2021 3:09 PM CDT [...] Sign Reading Time Taken Comments Blood Pressure 133/82 01/03/2023 1:20 PM CDT Pulse 94 01/03/2023 1:20 PM CDT Temperature 35.7 ??C (96.2 ??F) 01/03/2023 1:20 PM CD T Respiratory Rate 20 01/03/2023 1:20 PM CDT Oxygen Saturation 99% 01/03/2023 1:20 PM CDT Inhaled Oxygen Concentration - - Weight 75.8 kg (167 lb) 01/03/2023 1:20 PM CDT Height - - Body Mass Index 29.58 10/28/2022 3:44 PM CDT documented in this encounter Functional Status * RETIRED Are you deaf or do you have serious difficulty hearing Answer Date of Assessment Author Status No 07/30/2020 10:48 PM FINE CRAFT ARTIST Acti ve * RETIRED Are you blind or do you have serious difficulty seeing, even when wearing glasses? Answer Date of Assessment Author Status No 07/30/2020 10:46 PM FINE CRAFT ARTIST Acti ve * Do you have serious difficulty walking or climbing stairs? Answer Date of Assessment Author Status No 07/30/2020 10:46 PM FINE CRAFT ARTIST Nella Le RN Active * Do you [...] 12/07/2022 04/11/2023 documented as of this encounter Progress Notes * Cecilia Healy - 01/03/2023 1:30 PM CDTEncounter addended by: Cecilia Healy on: 01/04/2023 11:07 AM Actions taken: Charge Capture section accepted * Leslie Soriano RN - 01/03/2023 1:30 PM CDT PATIENT ASSESSMENT: Admitted via: Ambulatory Admitted from: Home Planned procedure: scheduled Nplate injection Patient information verified by LESLIE SORIANO RN. Barriers to learning: None Patient identity confirmed - Name and date of , Allergies Verified, and Patient/S.O given ableto voice fears/concerns LOC: Alert Emotional: Calm Motor Activity: Gait steady Respiratory: Regular and even Circulatory: WDL Nutrition: Tolerated diet well Elimination: Voiding NURSING DIAGNOSIS: Risk of injury GOALS: Patient will be free from signs/symptoms of physical injury documented in this encounter Plan of Treatment Upcoming Encounters Date Type Department Care Team (Late st Contact Info) Description 09/25/2024 11:30 AM FINE CRAFT ARTIST Appointment [facility] [address] [place] [address] Roberta Alex MD [address] [place] [address] 09/25/2024 11:40 AM FINE CRAFT ARTIST Office Visit [facility] [address] [place] [address] Roberta Alex MD [address] [place] [address] documented as of this encounter Visit Diagnoses Diagnosis Chronic ITP (idiopathic thrombocytopenia) (CMS/HCC HHS/HCC)- Primary Immune thrombocytopenic purpura Thrombocytopenia (CMS/HCC) Thrombocytopenia, unspecified documented in this encounter Administered Medications Inactive Administered Medications - up to 3 most recent administrations Medication Order MAR Action Action Date Dose Rate Site romiPLOStim (NPLATE) injection 150 mcg 150 mcg (rounded from 151.6 mcg = 2 mcg/kg ? 75.8 kg), Subcutaneous, Weekly, First dose on 01/03/23 at 1415, Until Discontinued, MAX weekly dose 10 mcg/kg. Adjust the dose of Romiplostim (Nplate) following perscribing information. Hold if PLTS greater than 150.Indications:Chronic ITP (idiopathic thrombocytopenia) (CMS/HCC HHS/HCC),Thrombocytopenia (CMS/HCC) Given 01/03/2023 2:23 PM CDT 150 mcg Left Arm documented in this encounter Additional Health Concerns Infection Onset Date Last Indicated Resolved Time MRSA 06/05/2021 06/05/2021 documented as of this encounter Care Teams Pension Consultant Relationship Specialty Start Date End Date Alejandro Blevins MD PCP - General FAMILY PRACTICE 12/10/19 documented as of this encounter
--- OUTSIDE RECORDS SUMMARY | 2024-07-11 05:40 | XMS_ITS | Encounter Summary ---
Author Organization [facility] Address [address] [place] [address]. [place] [address] [place] [address] Care Team Providers Care Club Waiter/Waitress Name Role Phone Alejandro Blevins MD Primary Care Provider [phone] Encounter Details Date Type Department Care Team (Latest Contact Info) Description 04/26/2023 8:00 AM CDT - 04/26/2023 11:59 PM CDT Hospital Encounter [address] [place] [address] Roberta Alex MD [address] [place] [address] Discharge Disposition: Home or Self Care (Routine Discharge) Social History Tobacco Use Types Packs/Day Years Used Date Smoking Tobacco: Every Day Cigarettes Smokeless Tobacco: Never Alcohol Use Standard Drinks/Week Comments Not Currently 0 (1 standard drink = 0.6 oz pur e alcohol) Comments No Sex and Gender Information Value Date Recorded Sex Assigned at Not on file Legal Sex Female 11:30 PM INSIDE PLANT SUPERVISOR Gender Identity Female 11/10/2021 3:09 PM CDT Sexual Orientation Straight 11/10/2021 3: 09 PM CDT documented as of this encounter Functional Status * RETIRED Are you deaf or do you have serious difficulty hearing Answer Date of Assessment Author Status No 07/30/2020 10:48 PM INSIDE PLANT SUPERVISOR Acti ve * RETIRED Are you blind or do you have serious difficulty seeing, even when wearing glasses? Answer Date of Assessment Author Status No 07/30/2020 10:46 PM INSIDE PLANT SUPERVISOR Acti ve * Do you have [...] this encounter Medications at Time of Discharge aspirin-acetamin ophen-caffeine (EXCEDRIN MIGRAINE) 250-250-65 MG tablet Take 1 tablet by mouth every 6 (six) hours as needed for Pain. buprenorphine-na loxone (SUBOXONE) 8-2 MG SL Tab SL tablet PLACE 1 TABLET TWICE A DAY BY SUBLINGUAL ROUTE DIRECTED FOR 30 DAYS. 04/01/2023 hydrOXYzine (VISTARIL) 50 MG capsule TAKE 1 [...] st Contact Info) Description 09/25/2024 11:30 AM INSIDE PLANT SUPERVISOR Appointment [facility] [address] [address] [place] [address] Roberta Alex MD [address] [place] [address] 09/25/2024 11:40 AM INSIDE PLANT SUPERVISOR Office Visit [facility] [place] [id number] [place] [address] Roberta Alex MD [address] [place] [address] documented as of this encounter Procedures Procedure Name Priority Date/Time Associated Diagnosis Comments CBC W/DIFF AUTOMATED Routine 04/26/2023 1:13 PM CDT Chronic ITP (idiopathic thrombocytopenia) (CMS/HCC HHS/HCC) documented in this encounter Results * (ABNORMAL) CBC W/DIFF AUTOMATED (04/26/2023 1:13 PM CDT) WBC 11.78(H) 4.00 - 10.80 x10'3/uL 04/26/2023 2:19 PM CDT [facility] RBC 4.45 4.10 - 5.40 x10'6/uL 04/26/2023 2:19 PM CDT [facility] HGB 13.1 12.0 - 16.0 G/DL 04/26/2023 2:19 PM CDT [facility] HCT 40.4 36.0 - 47.0 % 04/26/2023 2:19 PM CDT [facility] MCV 90.8 78.0 - 100.0 FL 04/26/2023 2:19 PM CDT [facility] MCH 29.4 27.0 - 31.0 PG 04/26/2023 2:19 PM CDT [facility] MCHC 32.4(L) 33.0 - 36.0 G/DL 04/26/2023 2:19 PM CDT [facility] RDW 12.3 11.5 - 14.5 % 04/26/2023 2:19 PM CDT [facility] PLT 44(L) 150 - 350 x10'3/uL 04/26/2023 2:19 PM CDT [facility] MPV 14.6(H) 7.4 - 10.4 FL 04/26/2023 2:19 PM CDT [facility] CBC COMMENT NORMAL REFERENCE RANGE NOT ESTABLISHED FOR THE PROPORTIONAL LEUKOCYTE DIFFERENTIAL. 04/26/2023 2:19 PM CDT [facility] NEUTROPHILS % 78.1 % 04/26/2023 2:20 PM CDT [facility] LYMPHOCYTES % 13.5 % 04/26/2023 2:20 PM CDT [facility] MONOCYTES % 3.9 % 04/26/2023 2:20 PM CDT [facility] EOSINOPHILS % 3.5 % 04/26/2023 2:20 PM CDT [facility] BASOPHILS % 0.7 % 04/26/2023 2:20 PM CDT [facility] IMMATURE GRANS % 0.3 % 04/26/20 2:20 PM CDT [facility] NRBC 0.0 % 04/26/2023 2:20 PM CDT [facility] ABS. NEUTROPHILS 9.20(H) 1.60 - 8.30 x10'3/uL 04/26/2023 2:20 PM CDT [facility] ABS. LYMPHOCYTES 1.59 0.80 - 4.70 x10'3/uL 04/26/2023 2:20 PM CDT [facility] ABS. MONOCYTES 0.46 0.00 - 1.50 x10'3/uL 04/26/2023 2:20 PM CDT [facility] ABS. EOSINOPHILS 0.41(H) 0.00 - 0.40 x10'3/uL 04/26/2023 2:20 PM CDT [facility] ABS. BASOPHILS 0.08 0.00 - 0.20 x10'3/uL 04/26/2023 2:20 PM CDT [facility] ABS. IMMATURE GRANULOCYTES 0.04(H) 0.00 - 0.03 x10'3/uL 04/26/2023 2:20 PM CDT [facility] ABS. NUCLEATED RBC'S 0.00 0.00 x10'3/uL 04/26/2023 2:20 PM CDT [facility] PLT MORPH. DECREASED 04/26/2023 2:20 PM CDT [facility] RBC MORPHOLOGY NORMAL 04/26/2023 2:20 PM CDT [facility] 04/26/2023 1:13 PM CDT us Roberta Alex MD LABORATORY Final Result [facility] [address] [place] [address], documented in this encounter Visit Diagnoses Diagnosis Chronic ITP (idiopathic thrombocytopenia) ([facility]/HCC [facility]/HCC) Immune thrombocytopenic purpura documented in this encounter Additional Health Concerns Infection Onset Date Last Indicated Resolved Time MRSA 06/05/2021 06/05/2021 documented as of this encounter Care Teams Club Waiter/Waitress Relationship Specialty Start Date End Date Alejandro Blevins MD PCP - General FAMILY PRACTICE 12/10/19 documented as of this encounter
--- OUTSIDE RECORDS SUMMARY | 2024-07-11 05:40 | XMS_ITS | Encounter Summary ---
Author Organization [facility] Address [address] [place] [address]. [place] [address] [place] [address] Care Team Providers Care Lens And Frames Prescription Clerk Name Role Phone Alejandro Blevins MD Primary Care Provider [phone] Reason for Visit * Reason Comments Follow Up Acute ITP Lab Results Encounter Details Date Type Department Care Team (Late st Contact Info) Description 01/03/2023 1:00 PM CDT Office Visit [address] [place] [address] Carey Pang, APNP [address] [place] [id number] Follow Up (Acute ITP); Lab Results Social [...] Legal Sex Female 11:30 PM AGRICULTURAL COMMODITIES INSPECTOR Gender Identity Female 11/10/2021 3:09 PM CDT Sexual Orientation Straight 11/10/2021 3: 09 PM CDT COVID-19 Exposure Response Date Recorded In the last 10 days, have yo u been in contact with someone who was confirmed or suspected to have Coronavirus/COVID-19? No / Unsure 01/05/2023 2:57 PM CDT documented as of this encounter Last Filed Vital Signs Vital Sign Reading Time Taken Comments Blood Pressure 133/82 01/03/2023 1:05 PM CDT Pulse 94 01/03/2023 1:05 PM CDT Temperature 35.7 ??C (96.2 ??F) 01/03/2023 1:05 PM CD T Respiratory Rate 20 01/03/2023 1:05 PM CDT Oxygen Saturation 99% 01/03/2023 1:05 PM CDT Inhaled Oxygen Concentration - - Weight 75.8 kg (167 lb) 01/03/2023 1:05 PM CDT Height - - Body Mass Index 29.58 10/28/2022 3:44 PM CDT documented in this encounter Functional Status * RETIRED Are you deaf or do you have serious difficulty hearing Answer Date of Assessment Author Status No 07/30/2020 10:48 PM AGRICULTURAL COMMODITIES INSPECTOR Acti ve * RETIRED Are you blind or do you have serious difficulty seeing, even when wearing glasses? Answer Date of Assessment Author Status No 07/30/2020 10:46 PM AGRICULTURAL COMMODITIES INSPECTOR Acti ve * Do you have serious [...] in this encounter Progress Notes * EMANUEL Gonzalez - 01/03/2023 1:00 PM CDT HEMATOLOGY/ONCOLOGY NOTE IDENTIFYING DATA: Hillary Smalls is a 32-year-old female REASON FOR VISIT: Follow Up (Acute ITP) and Lab Results HEMATOLOGY HISTORY: Hilalry Smalls is a 30-year-old female with hx of ITP, hepatitis C, polysubstance abuse,established care with me when she was with twins at 20 weeks gestation in 11/2019 and had no care. 1. ITP: Previously followed with [facility] mercantile agent Dr. iDck Bonilla. - 11/2019- 03/2020: Platelet counts around 50 K, stable during twin - Maintained on observation with plans for dexamethasone close to delivery. Unfortunately complicated with PPH in 03/2020 dueto placental abruption, hemorrhagic shock requiring intubation and multiple blood products. Her plat elets improved to normal range with Solu-Medrol 1 g, IVIG. - 07/2020: IVIG and Dexamethasone with slow prednisone taper - 08/2020: N- plate 1mcg/kg x1 dose on 08/26 with good improvement in platelet counts. [Rituximab was defered though this was not an absolute contraindication in hepatitis C infection. Splenectomy is a high risk due to history of polysubstance abuse and risk of infections]. - Pt then preferred to stay on observation - 04/2021- Resumed N plate due to decreasing platelets. Had only 2 doses. 2. 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 Hx of morbidity. Rheumatology evaluation pending. - Unable to start ASA due to fluctuating thrombocytopenia. - No concern for ATE/VTE- no indication for full dose anticoagulation. 3. Iron deficiency related to heavy menstrual cycles- on intermittent IV Venofer, and B12 related anemia- on supplements. INTERVAL HISTORY: Patient returns today for routine 4-week follow-up. She was last seen in the clinic by Dr. Alex on December 07, 2022. At that time, her platelet count had continued to trend downward consistent with relapsing ITP. It was decided to rechallenge with dexamethasone 40 mg oral daily x4. She was also scheduled for weekly IV Venofer 200 mg x 4. She has received all 4 iron infusions. On December it was decided to initiate Nplate 1 mcg/kg q. weekly. Today, it will be increased to 2 mcg/kg weekly due to no improvement. Fortunately has noticed mild improvement in her energy overall but she does notfeel quite stable enough to return to work. 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 She is asking for an extension off from work with a work letter. She did note some mild bleeding of her gums when brushing her teeth the other day. She has continued to have intermittent vaginal bleeding. She has IUD placement. Appetite is okay. Weight is stable. REVIEW OF SYSTEMS: CONST: No fevers or chills. RESP: No shortness of breath. CV: No chest pain. GI: No nausea, vomiting, constipation, diarrhea or blood in the stools. NEURO: No headaches or dizziness. H/L/IMM: Easy bleeding/bruising. Reviewed past medical history, surgical history, family history, social history. No changes except as noted. PAST MEDICAL HISTORY: Chronic hepatitis C, chronic thrombocytopenia, history of IVDU FAMILY HISTORY: No family history of any hemoglobinopathies, malignancies. History of anemia, B12 deficiency in thefamily. Social History Socioeconomic History Marital status: Single Tobacco Use Smoking status: Every Day Packs/day: 0.50 Types: Cigarettes Smokeless tobacco: Never Vaping Use Vaping Use: Never used Substance and Sexual Activity Alcohol use: Not Currently Drug use: Not Currently No past surgical history on file. Current Outpatient Medications Medication Sig Dispense Refill mytruqs-rqhklnoarwykc-oskwjpge (EXCEDRIN MIGRAINE) 250-250-65 MG tablet Take 1 tablet by mouth every 6 (six) hours as needed for Pain. ibuprofen (MOTRIN) 200 MG tablet Take 3 tablets (600 mg total) by mouth every 6 (six) hours as needed for Pain. omeprazole (PRILOSEC) 20 MG capsule Take 1 capsule (20 mg total) by mouth daily. 30 capsule 1 No current facility-administered medications for this visit. Review of patient's allergies indicates: Allergen Reactions Bee Venom Anaphylaxis Iodinated Contrast Media Anaphylaxis Shellfish Allergy Anaphylaxis VITALS: Height: 5' 3 (1.6 m) , Weight: 75.8 kg (167 lb) , BSA (Calculated - sq m): 1.78 sq meters , BP: 133/82 , Temp: 96.2 ??F (35.7 ??C) , Pulse: 94 , Resp: 20 PHYSICAL EXAMINATION: CONST: Overall is in usual health and no acute distress. ECOG 1. EYES: No icterus. ENT: Oral mucosa moist. RESP: Chest is clear to auscultation. Respiration even and unlabored. CV: Heart regular rate and rhythm without murmur. GI: Abdomen soft without mass, tenderness, ascites, or hernia. PSYCH: Appropriate mood and affect. NEURO: No speech difficulty. Alert and oriented to person, place, and time. Reviewed pertinent diagnostic tests, lab work, and imaging. These were reviewed with the patient. LABORATORY Lab Results Component Value Date/Time WBC 11.19 (H) 12/27/2022 12:32 PM HGB 13.9 12/27/2022 12:32 PM PLT 31 (L) 12/27/2022 12:32 PM NEUC 8.14 12/27/2022 12:32 PM CR 0.77 12/07/2022 10:15 AM K 4.5 12/07/2022 10:15 AM TBIL 0.3 12/07/2022 10:15 AM AST 22 12/07/2022 10:15 AM ALT 16 12/07/2022 10:15 AM ALKP 70 12/07/2022 10:15 AM FERRITIN 13.8 12/07/2022 10:51 AM ASSESSMENT AND PLAN: 1. Relapsed ITP. 2. History of iron deficiency secondary to menorrhagia. 3. Concern for APLS in the past. 4. History of chronic HCV infection, s/p hepatitis C antiviral treatment. I reviewed with the patient her evaluation, blood work, and treatment plan. Clinically, she appearsstable and energy level has improved slightly since IV iron has been completed. She has been experiencing some mild gum bleeding. Advised soft bristle toothbrush. 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 We will reevaluate at that time. CBC is pending from today. I will review once available. She will proceed with Nplate today though. She recently just completed her for IV Venofer 200 mg weekly infusions last week. We will repeat iron panel and ferritin at next follow-up and give additional IV iron if indicated. Recommended follow-up with EDGER TAILER regarding vaginal bleeding with IUD use. We will continue with weekly CBC as well as Nplate currently 2 mcg/kg. She will return to see Dr. Alex in 4 weeks. The patient verbalized understanding of plan of care and will call us in the interim with any further questions or concerns. EMANUEL GONZALEZ CC: Alejandro Blevins MD documented in this encounter Plan of Treatment Upcoming Encounters Date Type Department Care Team (Late st Contact Info) Description 09/25/2024 11:30 AM AGRICULTURAL COMMODITIES INSPECTOR Appointment [facility] [address] [place] [address] Roberta Alex MD [address] [place], [place] [address] 09/25/2024 11:40 AM AGRICULTURAL COMMODITIES INSPECTOR Office Visit [facility] [address] [place] [address] Roberta Alex MD [address] [place], [place] [id number] documented as of this encounter Results * (ABNORMAL) CBC W/DIFF AUTOMATED (08/12/2023 12:02 PM AGRICULTURAL COMMODITIES INSPECTOR) WBC 6.55 4.00 - 10.80 x10'3/uL 08/12/2023 12:12 PM AGRICULTURAL COMMODITIES INSPECTOR [facility] RBC 4.48 4.10 - 5.40 x10'6/uL 08/12/2023 12:12 PM AGRICULTURAL COMMODITIES INSPECTOR [facility] HGB 13.1 12.0 - 16.0 G/DL 08/12/2023 12:12 PM AGRICULTURAL COMMODITIES INSPECTOR [facility] HCT 40.8 36.0 - 47.0 % 08/12/2023 12:12 PM AGRICULTURAL COMMODITIES INSPECTOR [facility] MCV 91.1 78.0 - 100.0 FL 08/12/2023 12:12 PM AGRICULTURAL COMMODITIES INSPECTOR [facility] MCH 29.2 27.0 - 31.0 PG 08/12/2023 12:12 PM AGRICULTURAL COMMODITIES INSPECTOR [facility] MCHC 32.1(L) 33.0 - 36.0 G/DL 08/12/2023 12:12 PM AGRICULTURAL COMMODITIES INSPECTOR [facility] RDW 12.9 11.5 - 14.5 % 08/12/2023 12:12 PM AGRICULTURAL COMMODITIES INSPECTOR [facility] PLT 43(L) 150 - 350 x10'3/uL 08/12/2023 12:12 PM AGRICULTURAL COMMODITIES INSPECTOR [facility] MPV 15.4(H) 7.4 - 10.4 FL 08/12/2023 12:12 PM AGRICULTURAL COMMODITIES INSPECTOR [facility] CBC COMMENT NORMAL REFERENCE RANGE NOT ESTABLISHED FOR THE PROPORTIONAL LEUKOCYTE DIFFERENTIAL. 08/12/2023 12:12 PM AGRICULTURAL COMMODITIES INSPECTOR [facility] NEUTROPHILS % 57.9 % 08/12/2023 12:20 PM [facility] LYMPHOCYTES % 23.7 % 08/12/2023 12:20 PM [facility] MONOCYTES % 7.0 % 08/12/2023 12:20 PM [facility] EOSINOPHILS % 10.2 % 08/12/2023 12:20 PM [facility] BASOPHILS % 0.9 % 08/12/2023 12:20 PM [facility] IMMATURE GRANS % 0.3 % 08/12/19 12:20 PM AGRICULTURAL COMMODITIES INSPECTOR [facility] NRBC 0.0 % 08/12/2023 12:20 PM [facility] ABS. NEUTROPHILS 3.79 1.60 - 8.30 x10'3/uL 08/12/2023 12:20 PM [facility] ABS. LYMPHOCYTES 1.55 0.80 - 4.70 x10'3/uL 08/12/2023 12:20 PM [facility] ABS. MONOCYTES 0.46 0.00 - 1.50 x10'3/uL 08/12/2023 12:20 PM [facility] ABS. EOSINOPHILS 0.67(H) 0.00 - 0.40 x10'3/uL 08/12/2023 12:20 PM [facility] ABS. BASOPHILS 0.06 0.00 - 0.20 x10'3/uL 08/12/2023 12:20 PM [facility] ABS. IMMATURE GRANULOCYTES 0.02 0.00 - 0.03 x10'3/uL 08/12/2023 12:20 PM [facility] ABS. NUCLEATED RBC'S 0.00 0.00 x10'3/uL 08/12/2023 12:20 PM AGRICULTURAL COMMODITIES INSPECTOR [facility] PLT MORPH. DECREASED 08/12/2023 12:20 PM AGRICULTURAL COMMODITIES INSPECTOR [facility] RBC MORPHOLOGY 1+ 08/12/2023 12:20 PM AGRICULTURAL COMMODITIES INSPECTOR [facility] Comment: ANISOCYTOSIS 1+ POIKILOCYTOSIS 1+ MICROCYTES 08/12/2023 12:0 2 PM AGRICULTURAL COMMODITIES INSPECTOR us Carey [facility] Final Res ult [facility] [address] [place] [address], documented in this encounter Visit Diagnoses Diagnosis Chronic ITP (idiopathic thrombocytopenia) (CMS/HCC HHS/HCC)- Primary Immune thrombocytopenic purpura Iron deficiency anemia secondary to inadequate dietary iron intake Thrombocytopenia (CMS/HCC) Thrombocytopenia, unspecified documented in this encounter Additional Health Concerns Infection Onset Date Last Indicated Resolved Time MRSA 06/05/2021 06/05/2021 documented as of this encounter Care Teams Lens And Frames Prescription Clerk Relationship Specialty Start Date End Date Alejandro Blevins MD PCP - General FAMILY PRACTICE 12/10/19 documented as of this encounter
--- OUTSIDE RECORDS SUMMARY | 2024-07-11 05:40 | XMS_ITS | Encounter Summary ---
Author Organization [facility] Address [address] [place] [address]. [place] [address] [place] [address] Care Team Providers Care Fuse Spooler Name Role Phone Alejandro Blevins MD Primary Care Provider [phone] Encounter Details Date Type Department Care Team (Latest Contact Info) Description 04/19/2023 8:00 AM CDT - 04/19/2023 11:59 PM CDT Hospital Encounter [address] [place] [address] Roberta Alex MD [address] [place] [address] Discharge Disposition: Home or Self Care (Routine Discharge) Social History Tobacco Use Types Packs/Day Years Used Date Smoking Tobacco: Every Day Cigarettes Smokeless Tobacco: Never Alcohol Use Standard Drinks/Week Comments Not Currently 0 (1 standard drink = 0.6 oz pur e alcohol) Comments No Sex and Gender Information Value Date Recorded Sex Assigned at Not on file Legal Sex Female 11:30 PM COPIER AND PRINTER FIELD TECHNICIAN Gender Identity Female 11/10/2021 3:09 PM CDT Sexual Orientation Straight 11/10/2021 3: 09 PM CDT documented as of this encounter Functional Status * RETIRED Are you deaf or do you have serious difficulty hearing Answer Date of Assessment Author Status No 07/30/2020 10:48 PM COPIER AND PRINTER FIELD TECHNICIAN Acti ve * RETIRED Are you blind or do you have serious difficulty seeing, even when wearing glasses? Answer Date of Assessment Author Status No 07/30/2020 10:46 PM COPIER AND PRINTER FIELD TECHNICIAN Acti ve * Do you have serious [...] st Contact Info) Description 09/25/2024 11:30 AM COPIER AND PRINTER FIELD TECHNICIAN Appointment [facility] [address] [place] [address] Roberta Alex MD [address] [place] [address] 09/25/2024 11:40 AM COPIER AND PRINTER FIELD TECHNICIAN Office Visit [facility] [address] [place] [address] Roberta Alex MD [address] [place] [address] documented as of this encounter Procedures Procedure Name Priority Date/Time Associated Diagnosis Comments IRON SAT PANEL (IRON,IBC,%SAT) Routine 04/19/2023 9:35 AM CDT Chronic ITP (idiopathic thrombocytopenia) ([facility] HHS/HCC) CBC W/DIFF AUTOMATED Routine 04/19/2023 9:35 AM CDT Chronic ITP (idiopathic thrombocytopenia) ([facility] HHS/HCC) FERRITIN Routine 04/19/2023 9:35 AM CDT Chronic ITP (idiopathic thrombocytopenia) ([facility] HHS/HCC) documented in this encounter Results * FERRITIN (04/19/2023 9:35 AM CDT) FERRITIN 31.9 8 - 252 NG/ML 04/19/2023 10:11 AM CDT [facility] 04/19/2023 9:35 AM CDT us Roberta Alex MD LABORATORY Final Result [facility] [address] [place] [id number], * IRON SAT PANEL (IRON,IBC,%SAT) (04/19/2023 9:35 AM CDT) IRON 55 50 - 170 MCG/DL 04/19/2023 10:24 AM CDT [facility] IRON BINDING CAPACITY 318 250 - 450 MCG/DL 04/19/2023 10:24 AM CDT [facility] IRON SATURATION 17 % 10:24 AM CDT [facility] Comment:REFERENCE RANGE NOT ESTABLISHED 04/19/2023 9:35 AM CDT Roberta Alex MD LABORATORY Final Result [facility] [address] [place] [id number], * (ABNORMAL) CBC W/DIFF AUTOMATED (04/19/2023 9:35 AM CDT) WBC 7.62 4.00 - 10.80 x10'3/uL 04/19/2023 10:12 AM CDT [facility] RBC 4.53 4.10 - 5.40 x10'6/uL 04/19/2023 10:12 AM CDT [facility] HGB 13.5 12.0 - 16.0 G/DL 04/19/2023 10:12 AM CDT [facility] HCT 41.4 36.0 - 47.0 % 04/19/2023 10:12 AM CDT [facility] MCV 91.4 78.0 - 100.0 FL 04/19/2023 10:12 AM CDT [facility] MCH 29.8 27.0 - 31.0 PG 04/19/2023 10:12 AM CDT [facility] MCHC 32.6(L) 33.0 - 36.0 G/DL 04/19/2023 10:12 AM CDT [facility] RDW 12.4 11.5 - 14.5 % 04/19/2023 10:12 AM CDT [facility] PLT 50(L) 150 - 350 x10'3/uL 04/19/2023 10:12 AM CDT [facility] MPV 14.8(H) 7.4 - 10.4 FL 04/19/2023 10:12 AM CDT [facility] CBC COMMENT NORMAL REFERENCE RANGE NOT ESTABLISHED FOR THE PROPORTIONAL LEUKOCYTE DIFFERENTIAL. 04/19/2023 10:12 AM CDT [facility] NEUTROPHILS % 65.3 % 04/19/2023 10:23 AM CDT [facility] LYMPHOCYTES % 20.6 % 04/19/2023 10:23 AM CDT [facility] MONOCYTES % 4.6 % 04/19/2023 10:23 AM CDT [facility] EOSINOPHILS % 7.9 % 04/19/2023 10:23 AM CDT [facility] BASOPHILS % 1.2 % 04/19/2023 10:23 AM CDT [facility] IMMATURE GRANS % 0.4 % 04/19/20 10:23 AM CDT [facility] NRBC 0.0 % 04/19/2023 10:23 AM CDT [facility] ABS. NEUTROPHILS 4.98 1.60 - 8.30 x10'3/uL 04/19/2023 10:23 AM CDT [facility] ABS. LYMPHOCYTES 1.57 0.80 - 4.70 x10'3/uL 04/19/2023 10:23 AM CDT [facility] ABS. MONOCYTES 0.35 0.00 - 1.50 x10'3/uL 04/19/2023 10:23 AM CDT [facility] ABS. EOSINOPHILS 0.60(H) 0.00 - 0.40 x10'3/uL 04/19/2023 10:23 AM CDT [facility] ABS. BASOPHILS 0.09 0.00 - 0.20 x10'3/uL 04/19/2023 10:23 AM CDT [facility] ABS. IMMATURE GRANULOCYTES 0.03 0.00 - 0.03 x10'3/uL 04/19/2023 10:23 AM CDT [facility] ABS. NUCLEATED RBC'S 0.00 0.00 x10'3/uL 04/19/2023 10:23 AM CDT [facility] PLT MORPH. DECREASED 04/19/2023 10:23 AM CDT [facility] RBC MORPHOLOGY NORMAL 04/19/2023 10:23 AM CDT [facility] 04/19/2023 9:35 AM CDT us Roberta Alex MD LABORATORY Final Result [facility] [address] [place] [address], documented in this encounter Visit Diagnoses Diagnosis Chronic ITP (idiopathic thrombocytopenia) ([facility]/HCC) Immune thrombocytopenic purpura documented in this encounter Additional Health Concerns Infection Onset Date Last Indicated Resolved Time MRSA 06/05/2021 06/05/2021 documented as of this encounter Care Teams Fuse Spooler Relationship Specialty Start Date End Date Alejandro Blevins MD PCP - General FAMILY PRACTICE 12/10/19 documented as of this encounter
--- OUTSIDE RECORDS SUMMARY | 2024-07-11 05:40 | XMS_ITS | Encounter Summary ---
Author Organization [facility] Address [address] [place] [address]. [place] [address] [place] [address] Care Team Providers Care Fire Engine Pump Operator Name Role Phone Alejandro Blevins MD Primary Care Provider [phone] Encounter Details Date Type Department Care Team (Latest Contact Info) Description 04/11/2023 8:00 AM CDT - 04/11/2023 11:59 PM CDT Hospital Encounter [facility] [address] [place] [address] [place] [address] Carey Pang, EMANUEL [address] [place] [id number] Discharge Disposition: Home or Self Care (Routine Discharge) Social History Tobacco Use Types Packs/Day Years Used Date Smoking Tobacco: Every Day Cigarettes Smokeless Tobacco: Never Alcohol Use Standard Drinks/Week Comments Not Currently 0 (1 standard drink = 0.6 oz pur e alcohol) Comments No Sex and Gender Information Value Date Recorded Sex Assigned at Not on file Legal Sex Female 11:30 PM GOLF CART ATTENDANT Gender Identity Female 11/10/2021 3:09 PM CDT Sexual Orientation Straight 11/10/2021 3: 09 PM CDT documented as of this encounter Functional Status * RETIRED Are you deaf or do you have serious difficulty hearing Answer Date of Assessment Author Status No 07/30/2020 10:48 PM GOLF CART ATTENDANT Acti ve * RETIRED Are you blind or do you have serious difficulty seeing, even when wearing glasses? Answer Date of Assessment Author Status No 07/30/2020 10:46 PM GOLF CART ATTENDANT Acti ve * Do you have serious [...] st Contact Info) Description 09/25/2024 11:30 AM GOLF CART ATTENDANT Appointment [facility] [address] [facility] [place] [address] Roberta Alex MD [address] [place] [address] 09/25/2024 11:40 AM GOLF CART ATTENDANT Office Visit [facility] [address] [place] [address] Roberta Alex MD [address] [place] [address] documented as of this encounter Procedures Procedure Name Priority Date/Time Associated Diagnosis Comments CBC W/DIFF AUTOMATED Routine 04/11/2023 8:07 AM CDT Chronic ITP (idiopathic thrombocytopenia) ([facility]/HCC [facility]/HCC) documented in this encounter Results * (ABNORMAL) CBC W/DIFF AUTOMATED (04/11/2023 8:07 AM CDT) WBC 9.21 4.00 - 10.80 x10'3/uL 04/11/2023 8:22 AM CDT [facility] RBC 4.45 4.10 - 5.40 x10'6/uL 04/11/2023 8:22 AM CDT [facility] HGB 13.1 12.0 - 16.0 G/DL 04/11/2023 8:22 AM CDT [facility] HCT 41.0 36.0 - 47.0 % 04/11/2023 8:22 AM CDT [facility] MCV 92.1 78.0 - 100.0 FL 04/11/2023 8:22 AM CDT [facility] MCH 29.4 27.0 - 31.0 PG 04/11/2023 8:22 AM CDT [facility] MCHC 32.0(L) 33.0 - 36.0 G/DL 04/11/2023 8:22 AM CDT [facility] RDW 12.2 11.5 - 14.5 % 04/11/2023 8:22 AM CDT [facility] PLT 51(L) 150 - 350 x10'3/uL 04/11/2023 8:22 AM CDT [facility] MPV 14.5(H) 7.4 - 10.4 FL 04/11/2023 8:22 AM CDT [facility] CBC COMMENT NORMAL REFERENCE RANGE NOT ESTABLISHED FOR THE PROPORTIONAL LEUKOCYTE DIFFERENTIAL. 04/11/2023 8:22 AM CDT [facility] NEUTROPHILS % 68.1 % 04/11/2023 8:50 AM CDT [facility] LYMPHOCYTES % 20.0 % 04/11/2023 8:50 AM CDT [facility] MONOCYTES % 4.6 % 04/11/2023 8:50 AM CDT [facility] EOSINOPHILS % 6.1 % 04/11/2023 8:50 AM CDT [facility] BASOPHILS % 0.8 % 04/11/2023 8:50 AM CDT [facility] IMMATURE GRANS % 0.4 % 04/11/20 8:50 AM CDT [facility] NRBC 0.0 % 04/11/2023 8:50 AM CDT [facility] ABS. NEUTROPHILS 6.28 1.60 - 8.30 x10'3/uL 04/11/2023 8:50 AM CDT [facility] ABS. LYMPHOCYTES 1.84 0.80 - 4.70 x10'3/uL 04/11/2023 8:50 AM CDT [facility] ABS. MONOCYTES 0.42 0.00 - 1.50 x10'3/uL 04/11/2023 8:50 AM CDT [facility] ABS. EOSINOPHILS 0.56(H) 0.00 - 0.40 x10'3/uL 04/11/2023 8:50 AM CDT [facility] ABS. BASOPHILS 0.07 0.00 - 0.20 x10'3/uL 04/11/2023 8:50 AM CDT [facility] ABS. IMMATURE GRANULOCYTES 0.04(H) 0.00 - 0.03 x10'3/uL 04/11/2023 8:50 AM CDT [facility] ABS. NUCLEATED RBC'S 0.00 0.00 x10'3/uL 04/11/2023 8:50 AM CDT [facility] PLT MORPH. DECREASED 04/11/2023 8:50 AM CDT [facility] RBC MORPHOLOGY NORMAL 04/11/2023 8:50 AM CDT [facility] 04/11/2023 8:07 AM CDT us Carey Pang APNP LABORATORY Final Res ult [facility] [address] [place] [address], documented in this encounter Visit Diagnoses Diagnosis Chronic ITP (idiopathic thrombocytopenia) (CMS/HCC HHS/HCC) Immune thrombocytopenic purpura documented in this encounter Additional Health Concerns Infection Onset Date Last Indicated Resolved Time MRSA 06/05/2021 06/05/2021 documented as of this encounter Care Teams Fire Engine Pump Operator Relationship Specialty Start Date End Date Alejandro Blevins MD PCP - General FAMILY PRACTICE 12/10/19 documented as of this encounter
--- OUTSIDE RECORDS SUMMARY | 2024-07-11 05:40 | XMS_ITS | Encounter Summary ---
Author Organization [facility] Address [facility] [place] [address] [place] [address] Care Team Providers Care Stove Tender Name Role Phone Alejandro Blevins MD Primary Care Provider [phone] Encounter Details Date Type Department Care Team (Latest Contact Info) Description 03/24/2023 2:15 PM CDT - 03/24/2023 11:59 PM CDT Hospital Encounter [address] [place] [address] Roberta Alex MD [address] [place] [address] Discharge Disposition: Home or Self Care (Routine Discharge) Social History Tobacco Use Types Packs/Day Years Used Date Smoking Tobacco: Every Day Cigarettes Smokeless Tobacco: Never Alcohol Use Standard Drinks/Week Comments Not Currently 0 (1 standard drink = 0.6 oz pur e alcohol) Comments No Sex and Gender Information Value Date Recorded Sex Assigned at Not on file Legal Sex Female 11:30 PM PHARMACEUTICAL SALES Gender Identity Female 11/10/2021 3:09 PM CDT Sexual Orientation Straight 11/10/2021 3: 09 PM CDT documented as of this encounter Functional Status * RETIRED Are you deaf or do you have serious difficulty hearing Answer Date of Assessment Author Status No 07/30/2020 10:48 PM PHARMACEUTICAL SALES Acti ve * RETIRED Are you blind or do you have serious difficulty seeing, even when wearing glasses? Answer Date of Assessment Author Status No 07/30/2020 10:46 PM PHARMACEUTICAL SALES Acti ve * Do you have serious [...] MG tablet 03/22/2023 omeprazole (PRILOSEC) 20 MG capsuleIndication s:Acute ITP (CMS/HCC HHS/HCC) Take 1 capsule (20 mg total) by mouth daily. 30 capsule 1 12/07/2022 04/11/2023 documented as of this encounter Progress Notes * Talia Butcher MD - 03/24/2023 2:15 PM CDT Additional documentation from 03/20/23-04/05/23 may be found under the media tab. MACEUTICAL SALES * Talia Butcher MD - 03/24/2023 2:15 PM CDT Additional documentation from 03/20/23-04/05/23 may be found under the media tab. M[employer] SALES documented in this encounter Plan of Treatment Upcoming Encounters Date Type Department Care Team (Late st Contact Info) Description 09/25/2024 11:30 AM PHARMACEUTICAL SALES Appointment [facility] [place] [address] Roberta Alex MD [address] [place] [address] 09/25/2024 11:40 AM PHARMACEUTICAL SALES Office Visit [facility] [place] [address] Roberta Alex MD [address] [place], [place] [address] documented as of this encounter Procedures Procedure Name Priority Date/Time Associated Diagnosis Comments CBC W/DIFF AUTOMATED Routine 03/24/2023 2:22 PM CDT Acute ITP (CMS/HCC HHS/HCC) documented in this encounter Results * (ABNORMAL) CBC W/DIFF AUTOMATED (03/24/2023 2:22 PM CDT) WBC 8.77 4.00 - 10.80 x10'3/uL 04/08/2023 12:01 PM CDT [facility] Comment:SPECIMEN PROCESSED D URING DOWNTIME RBC 4.60 4.10 - 5.40 x10'6/uL 04/08/2023 12:01 PM CDT [facility] HGB 13.9 12.0 - 16.0 G/DL 04/08/2023 12:01 PM CDT [facility] HCT 42.4 36.0 - 47.0 % 04/08/2023 12:01 PM CDT [facility] MCV 92.2 78.0 - 100.0 FL 04/08/2023 12:01 PM CDT [facility] MCH 30.2 27.0 - 31.0 PG 04/08/2023 12:01 PM CDT [facility] MCHC 32.8(L) 33.0 - 36.0 G/DL 04/08/2023 12:01 PM CDT [facility] RDW 12.3 11.5 - 14.5 % 04/08/2023 12:01 PM CDT [facility] PLT 41(L) 150 - 350 x10'3/uL 04/08/2023 12:01 PM CDT [facility] MPV RESULTS NOT AVAILABLE 7.4 - 10.4 FL 04/08/2023 12:01 PM CDT [facility] CBC COMMENT NORMAL REFERENCE RANGE NOT ESTABLISHED FOR THE PROPORTIONAL LEUKOCYTE DIFFERENTIAL. 04/08/2023 12:01 PM CDT [facility] NEUTROPHILS % 69.3 % 04/08/2023 12:03 PM CDT [facility] LYMPHOCYTES % 18.7 % 04/08/2023 12:03 PM CDT [facility] MONOCYTES % 5.5 % 04/08/2023 12:03 PM CDT [facility] EOSINOPHILS % 5.7 % 04/08/2023 12:03 PM CDT [facility] BASOPHILS % 0.7 % 04/08/2023 12:03 PM CDT [facility] IMMATURE GRANS % 0.1 % 04/08/20 12:03 PM CDT [facility] NRBC 0.0 % 04/08/2023 12:03 PM CDT [facility] ABS. NEUTROPHILS 6.08 1.60 - 8.30 x10'3/uL 04/08/2023 12:03 PM CDT [facility] ABS. LYMPHOCYTES 1.64 0.80 - 4.70 x10'3/uL 04/08/2023 12:03 PM CDT [facility] ABS. MONOCYTES 0.48 0.00 - 1.50 x10'3/uL 04/08/2023 12:03 PM CDT [facility] ABS. EOSINOPHILS 0.50(H) 0.00 - 0.40 x10'3/uL 04/08/2023 12:03 PM CDT [facility] ABS. BASOPHILS 0.06 0.00 - 0.20 x10'3/uL 04/08/2023 12:03 PM CDT [facility] ABS. IMMATURE GRANULOCYTES 0.01 0.00 - 0.03 x10'3/uL 04/08/2023 12:03 PM CDT [facility] ABS. NUCLEATED RBC'S 0.00 0.00 x10'3/uL 04/08/2023 12:03 PM CDT [facility] PLT MORPH. DECREASED 04/08/2023 12:03 PM CDT [facility] RBC MORPHOLOGY NORMAL 04/08/2023 12:03 PM CDT [facility] 03/24/2023 2:22 PM CDT Roberta Alex MD LABORATORY Final Result [facility] [address] [employer] [place] [address], documented in this encounter Visit Diagnoses Diagnosis Acute ITP ([facility]) Immune thrombocytopenic purpura documented in this encounter Additional Health Concerns Infection Onset Date Last Indicated Resolved Time MRSA 06/05/2021 06/05/2021 documented as of this encounter Care Teams Stove Tender Relationship Specialty Start Date End Date Alejandro Blevins MD PCP - General FAMILY PRACTICE 12/10/19 documented as of this encounter
--- OUTSIDE RECORDS SUMMARY | 2024-07-11 05:40 | XMS_ITS | Encounter Summary ---
Author Organization [facility] Address [facility] [facility] [place] [address] [place] [address] Care Team Providers Care Harbor Pilot Name Role Phone Alejandro Blevins MD Primary Care Provider [phone] Encounter Details Date Type Department Care Team (Late st Contact Info) Description 04/05/2023 Orders Only [address] [place] [address] Carey Pang, APNP [address] [place] [phone] Social History Tobacco Use Types Packs/Day Years Used Date Smoking Tobacco: Every Day Cigarettes Smokeless Tobacco: Never Alcohol Use Standard Drinks/Week Comments Not Currently 0 (1 standard drink = 0.6 oz pur e alcohol) Comments No Sex and Gender Information Value Date Recorded Sex Assigned at Not on file Legal Sex Female 11:30 PM GROUP FITNESS ASSISTANT DEPARTMENT HEAD Gender Identity Female 11/10/2021 3:09 PM CDT Sexual Orientation Straight 11/10/2021 3: 09 PM CDT documented as of this encounter Functional Status * RETIRED Are you deaf or do you have serious difficulty hearing Answer Date of Assessment Author Status No 07/30/2020 10:48 PM GROUP FITNESS ASSISTANT DEPARTMENT HEAD Acti ve * RETIRED Are you blind or do you have serious difficulty seeing, even when wearing glasses? Answer Date of Assessment Author Status No 07/30/2020 10:46 PM GROUP FITNESS ASSISTANT DEPARTMENT HEAD Acti ve * Do you have serious difficulty walking or climbing stairs? Answer Date of Assessment Author Status No 07/30/2020 10:46 PM GROUP FITNESS ASSISTANT DEPARTMENT HEAD Nella Le RN Active * Do you have difficulty dressing or bathing? Answer Date of Assessment Author Status No 07/30/2020 10:46 PM GROUP FITNESS ASSISTANT DEPARTMENT HEAD Nella Le RN Active * Because of [...] st Contact Info) Description 09/25/2024 11:30 AM GROUP FITNESS ASSISTANT DEPARTMENT HEAD [facility]ment [facility] [place] [address] Roberta Alex MD [address] [place] [id number] 09/25/2024 11:40 AM GROUP FITNESS ASSISTANT DEPARTMENT HEAD Office Visit [facility] [place] [address] Roberta Alex MD [address] [place] [address] documented as of this encounter Results * (ABNORMAL) CBC W/DIFF AUTOMATED (04/11/2023 8:07 AM CDT) [facility] WBC 9.21 4.00 - 10.80 x10'3/uL 04/11/2023 8:22 AM CDT [facility] RBC 4.45 4.10 - 5.40 x10'6/uL 04/11/2023 8:22 AM CDT [facility] HGB 13.1 12.0 - 16.0 G/DL 04/11/2023 8:22 AM CDT [facility] HCT 41.0 36.0 - 47.0 % 04/11/2023 8:22 AM CDT [facility] MCV 92.1 78.0 - 100.0 FL 04/11/2023 8:22 AM CDT [facility] MCH 29.4 27.0 - 31.0 PG 04/11/2023 8:22 AM CDT [facility] MCHC 32.0(L) 33.0 - 36.0 G/DL 04/11/2023 8:22 AM CDT [facility] RDW 12.2 11.5 - 14.5 % 04/11/2023 8:22 AM CDT [facility] PLT 51(L) 150 - 350 x10'3/uL 04/11/2023 8:22 AM CDT [facility] MPV 14.5(H) 7.4 - 10.4 FL 04/11/2023 8:22 AM CDT [facility] CBC COMMENT NORMAL REFERENCE RANGE NOT ESTABLISHED FOR THE PROPORTIONAL LEUKOCYTE DIFFERENTIAL. 04/11/2023 8:22 AM CDT [facility] NEUTROPHILS % 68.1 % 04/11/2023 8:50 AM CDT [facility] LYMPHOCYTES % 20.0 % 04/11/2023 8:50 AM CDT [facility] MONOCYTES % 4.6 % 04/11/2023 8:50 AM CDT [facility] EOSINOPHILS % 6.1 % 04/11/2023 8:50 AM CDT [facility] BASOPHILS % 0.8 % 04/11/2023 8:50 AM CDT [facility] IMMATURE GRANS % 0.4 % 04/11/20 8:50 AM CDT [facility] NRBC 0.0 % 04/11/2023 8:50 AM CDT [facility] ABS. NEUTROPHILS 6.28 1.60 - 8.30 x10'3/uL 04/11/2023 8:50 AM CDT [facility] ABS. LYMPHOCYTES 1.84 0.80 - 4.70 x10'3/uL 04/11/2023 8:50 AM CDT [facility] ABS. MONOCYTES 0.42 0.00 - 1.50 x10'3/uL 04/11/2023 8:50 AM CDT [facility] ABS. EOSINOPHILS 0.56(H) 0.00 - 0.40 x10'3/uL 04/11/2023 8:50 AM CDT [facility] ABS. BASOPHILS 0.07 0.00 - 0.20 x10'3/uL 04/11/2023 8:50 AM CDT [facility] ABS. IMMATURE GRANULOCYTES 0.04(H) 0.00 - 0.03 x10'3/uL 04/11/2023 8:50 AM CDT [facility] ABS. NUCLEATED RBC'S 0.00 0.00 x10'3/uL 04/11/2023 8:50 AM CDT [facility] PLT MORPH. DECREASED 04/11/2023 8:50 AM CDT [facility] RBC MORPHOLOGY NORMAL 04/11/2023 8:50 AM CDT [facility] 04/11/2023 8:07 AM CDT us Carey CASTELLANOS LABORATORY Final Res ult [facility] [address] [place] [address], documented in this encounter Visit Diagnoses Diagnosis Chronic ITP (idiopathic thrombocytopenia) ([facility])- Primary Immune thrombocytopenic purpura documented in this encounter Additional Health Concerns Infection Onset Date Last Indicated Resolved Time MRSA 06/05/2021 06/05/2021 documented as of this encounter Care Teams Harbor Pilot Relationship Specialty Start Date End Date Alejandro Blevins MD PCP - General FAMILY PRACTICE 12/10/19 documented as of this encounter
--- OUTSIDE RECORDS SUMMARY | 2024-07-11 05:40 | XMS_ITS | Encounter Summary ---
Author Organization [facility] Address [address] [place] [address]. [place] [address] [place] [address] Care Team Providers Care Minor League Baseball Player Name Role Phone Alejandro Blevins MD Primary Care Provider [phone] Reason for Visit * Reason Comments Infusion Therapy * Treatment/Therapy Plan Authorization (Routine) - Closed Specialty Diagnoses / Procedures Referred By Contac t Referred To Contact Diagnoses Anemia Procedures Roberta Evans MD [address] [place] [address] Phone: tel: fax: [facility] [place] [address] Phone: tel: Referral ID Status Reason Start Date Expiration Date Visits Re quested Visits Authorized [id number] Closed 05/18/2023 05/18/2024 1 1 Encounter Details Date Type Department Care Team (Latest Contact Info) Description 06/09/2023 11:28 AM [facility] Hospital Encounter [facility] [place] [address] Roberta Alex MD [address] [place], [place] [address] Infusion Therapy Discharge Disposition: Home or Self Care (Routine [...] on file Legal Sex Female 11:30 PM WOOL SPOTTER Gender Identity Female 11/10/2021 3:09 PM CDT Sexual Orientation Straight 11/10/2021 3: 09 PM CDT documented as of this encounter Last Filed Vital Signs Vital Sign Reading Time Taken Comments Blood Pressure 104/80 06/09/2023 12:02 PM WOOL SPOTTER Pulse 71 06/09/2023 12:02 PM WOOL SPOTTER Temperature 35.9 ??C (96.6 ??F) 06/09/2023 12:[address] Respiratory Rate 16 06/09/2023 12:02 PM WOOL SPOTTER Oxygen Saturation 96% 06/09/2023 12:02 PM WOOL SPOTTER Inhaled Oxygen Concentration - - Weight 79.4 kg (175 lb) 06/09/2023 12:02 PM WOOL SPOTTER Height - - Body Mass Index 31 10/28/2022 3:44 PM CDT documented in this encounter Functional Status * RETIRED Are you deaf or do you have serious difficulty hearing Answer Date of Assessment Author Status No 07/30/2020 10:48 PM WOOL SPOTTER Acti ve * RETIRED Are you blind or do you have serious difficulty seeing, even when wearing glasses? Answer Date of Assessment Author Status No 07/30/2020 10:46 PM WOOL SPOTTER Acti ve * Do you have serious difficulty walking or climbing stairs? Answer Date of Assessment Author Status No 07/30/2020 10:46 PM WOOL SPOTTER Nella Le RN Active * Do you [...] 1 04/11/2023 documented as of this encounter Progress Notes * Leslie Soriano RN - 06/09/2023 11:30 AM CST PATIENT ASSESSMENT: Admitted via: Ambulatory Admitted from: Home Planned procedure: scheduled venofer Patient information verified by LESLIE SORIANO RN. Barriers to learning: None Patient identity confirmed - Name and date of , Allergies Verified, teaching done/mutual goalsset and understood, and Patient/S.O given able to voice fears/concerns LOC: Alert Emotional: Calm Motor Activity: Gait steady Respiratory: Regular and even Circulatory: WDL Nutrition: Tolerated diet well Elimination: Voiding NURSING DIAGNOSIS: Knowledge deficit related to procedure, Anxiety/fear related to knowledge deficit, and Risk of injury GOALS: Patient/S.O. will understand expected responses to procedure, Patient/S.O. will verbalize anxietiesand/or concerns, and Patient will be free from signs/symptoms of physical injury SPOTTER * Cecilia Healy - 06/09/2023 11:28 AM CSTEncounter addended by: Cecilia Healy on: 06/13/2023 1:26 PM Actions taken: Charge Capture section accepted SPOTTER documented in this encounter Plan of Treatment Upcoming Encounters Date Type Department Care Team (Late st Contact Info) Description 09/25/2024 11:30 AM WOOL SPOTTER Appointment [facility] [address] [facility] [address] [place] [address] Roberta Alex MD [address] [place] [address] 09/25/2024 11:40 AM WOOL SPOTTER Office Visit [facility] [address] [place] [address] Roberta Alex MD [address] [place] [address] documented as of this encounter Visit Diagnoses Diagnosis Iron deficiency anemia due to chronic blood loss- Primary Iron deficiency anemia secondary to blood loss (chronic) documented in this encounter Administered Medications Inactive Administered Medications - up to 3 most recent administrations Medication Order MAR Action Action Date Dose Rate Site iron sucrose (VENOFER) 200 mg in sodium chloride 0.9 % 100 mL IVPB 200 mg, Intravenous, at 400 mL/hr, Once, 1 dose, On Brittni 06/09/23 at 1200Indications:Iron deficiency anemia due to chronic blood loss New Bag 06/09/2023 12:02 PM WOOL SPOTTER 200 mg 400 mL/hr documented in this encounter Additional Health Concerns Infection Onset Date Last Indicated Resolved Time MRSA 06/05/2021 06/05/2021 documented as of this encounter Care Teams Minor League Baseball Player Relationship Specialty Start Date End Date Alejandro Blevins MD PCP - General FAMILY PRACTICE 12/10/19 documented as of this encounter
--- OUTSIDE RECORDS SUMMARY | 2024-07-11 05:40 | XMS_ITS | Encounter Summary ---
Author Organization [facility] Address [address] [place] [address]. [place], [place] [address] [place] [address] Care Team Providers Care Health Science Writer Name Role Phone Alejandro Blevins MD Primary Care Provider [phone] Encounter Details Date Type Department Care Team (Latest Contact Info) Description 05/26/2023 Travel Social History Tobacco Use Types Packs/Day Years Used Date Smoking Tobacco: Every Day Cigarettes Smokeless Tobacco: Never Alcohol Use Standard Drinks/Week Comments Not Currently 0 (1 standard drink = 0.6 oz pur e alcohol) Comments No Sex and Gender Information Value Date Recorded Sex Assigned at Not on file Legal Sex Female 11:30 PM FEEDER CATCHER TOBACCO Gender Identity Female 11/10/2021 3:09 PM CDT Sexual Orientation Straight 11/10/2021 3: 09 PM CDT documented as of this encounter Functional Status * RETIRED Are you deaf or do you have serious difficulty hearing Answer Date of Assessment Author Status No 07/30/2020 10:48 PM FEEDER CATCHER TOBACCO Acti ve * RETIRED Are you blind or do you have serious difficulty seeing, even when wearing glasses? Answer Date of Assessment Author Status No 07/30/2020 10:46 PM FEEDER CATCHER TOBACCO Acti ve * Do you have serious difficulty walking or climbing stairs? Answer Date of Assessment Author Status No 07/30/2020 10:46 PM FEEDER CATCHER TOBACCO Nella Le RN Active * Do you have difficulty dressing or bathing? Answer Date of Assessment Author Status No 07/30/2020 10:46 PM FEEDER CATCHER TOBACCO Nella Le RN Active * Because of a physical, mental, or emotional condition, do you have difficulty doing errands alone such as visiting a doctor's office or shopping? Answer Date of Assessment Author Status No 07/30/2020 10:46 PM FEEDER CATCHER TOBACCO Nella Le RN Active documented as of this encounter Mental Status * Because of a physical, mental, or emotional condition, do you have serious difficulty concentrating, remembering, or making decisions? Answer Entry Date Author Status No 07/30/2020 10:46 PM FEEDER CATCHER TOBACCO Nella Le RN Active documented in this encounter Plan of Treatment Upcoming Encounters Date Type Department Care Team (Late st Contact Info) Description 09/25/2024 11:30 AM FEEDER CATCHER TOBACCO Appointment [facility] [address] [place] [address] Roberta Alex MD [address] [place] [address] 09/25/2024 11:40 AM FEEDER CATCHER TOBACCO Office Visit [facility] [address] [place] [address] Roberta Alex MD [address] [place] [address] documented as of this encounter Visit Diagnoses Not on filedocumented in this encounter Additional Health Concerns Infection Onset Date Last Indicated Resolved Time MRSA 06/05/2021 06/05/2021 documented as of this encounter Care Teams Health Science Writer Relationship Specialty Start Date End Date Alejandro Blevins MD PCP - General FAMILY PRACTICE 12/10/19 documented as of this encounter
--- OUTSIDE RECORDS SUMMARY | 2024-07-11 05:40 | XMS_ITS | Encounter Summary ---
Author Organization [facility] Address [facility] [place] [address] [place] [address] Care Team Providers Care Svp Of Digital Name Role Phone Alejandro Blevins MD Primary Care Provider [phone] Encounter Details Date Type Department Care Team (Late st Contact Info) Description 04/11/2023 Orders Only [address] [place] [address] Roberta Alex MD [address] [place] [address] Social History Tobacco Use Types Packs/Day Years Used Date Smoking Tobacco: Every Day Cigarettes Smokeless Tobacco: Never Alcohol Use Standard Drinks/Week Comments Not Currently 0 (1 standard drink = 0.6 oz pur e alcohol) Comments No Sex and Gender Information Value Date Recorded Sex Assigned at Not on file Legal Sex Female 11:30 PM VP CLIENT SERVICES Gender Identity Female 11/10/2021 3:09 PM CDT Sexual Orientation Straight 11/10/2021 3: 09 PM CDT documented as of this encounter Functional Status * RETIRED Are you deaf or do you have serious difficulty hearing Answer Date of Assessment Author Status No 07/30/2020 10:48 PM VP CLIENT SERVICES Acti ve * RETIRED Are you blind or do you have serious difficulty seeing, even when wearing glasses? Answer Date of Assessment Author Status No 07/30/2020 10:46 PM VP CLIENT SERVICES Acti ve * Do you have serious difficulty walking or climbing stairs? Answer Date of Assessment Author Status No 07/30/2020 10:46 PM VP CLIENT SERVICES Bringuet, Nella C, RN Active * Do you have difficulty dressing or bathing? Answer Date of Assessment Author Status No 07/30/2020 10:46 PM VP CLIENT SERVICES Nella Le RN Active * Because of [...] st Contact Info) Description 09/25/2024 11:30 AM VP CLIENT SERVICES Appointment [facility] [address] [place] [address] Roberta Alex MD [address] [place] [address] 09/25/2024 11:40 AM VP CLIENT SERVICES Office Visit [facility] [address] [place] [address] Roberta Alex MD [address] [place] [address] documented as of this encounter Results * (ABNORMAL) CBC W/DIFF AUTOMATED (04/26/2023 1:13 PM CDT) [facility] WBC 11.78(H) 4.00 - 10.80 x10'3/uL 04/26/2023 2:19 PM CDT [facility] RBC 4.45 4.10 - 5.40 x10'6/uL 04/26/2023 2:19 PM CDT [facility] HGB 13.1 12.0 - 16.0 G/DL 04/26/2023 2:19 PM CDT [facility] HCT 40.4 36.0 - 47.0 % 04/26/2023 2:19 PM CDT [facility] MCV 90.8 78.0 - 100.0 FL 04/26/2023 2:19 PM CDT [facility] MCH 29.4 27.0 - 31.0 PG 04/26/2023 2:19 PM CDT [facility] MCHC 32.4(L) 33.0 - 36.0 G/DL 04/26/2023 2:19 PM CDT [facility] RDW 12.3 11.5 - 14.5 % 04/26/2023 2:19 PM CDT [facility] PLT 44(L) 150 - 350 x10'3/uL 04/26/2023 2:19 PM CDT [facility] MPV 14.6(H) 7.4 - 10.4 FL 04/26/2023 2:19 PM CDT [facility] CBC COMMENT NORMAL REFERENCE RANGE NOT ESTABLISHED FOR THE PROPORTIONAL LEUKOCYTE DIFFERENTIAL. 04/26/2023 2:19 PM CDT [facility] NEUTROPHILS % 78.1 % 04/26/2023 2:20 PM CDT [facility] LYMPHOCYTES % 13.5 % 04/26/2023 2:20 PM CDT [facility] MONOCYTES % 3.9 % 04/26/2023 2:20 PM CDT [facility] EOSINOPHILS % 3.5 % 04/26/2023 2:20 PM CDT [facility] BASOPHILS % 0.7 % 04/26/2023 2:20 PM CDT [facility] IMMATURE GRANS % 0.3 % 04/26/20 2:20 PM CDT [facility] NRBC 0.0 % 04/26/2023 2:20 PM CDT [facility] ABS. NEUTROPHILS 9.20(H) 1.60 - 8.30 x10'3/uL 04/26/2023 2:20 PM CDT [facility] ABS. LYMPHOCYTES 1.59 0.80 - 4.70 x10'3/uL 04/26/2023 2:20 PM CDT [facility] ABS. MONOCYTES 0.46 0.00 - 1.50 x10'3/uL 04/26/2023 2:20 PM CDT [facility] ABS. EOSINOPHILS 0.41(H) 0.00 - 0.40 x10'3/uL 04/26/2023 2:20 PM CDT [facility] ABS. BASOPHILS 0.08 0.00 - 0.20 x10'3/uL 04/26/2023 2:20 PM CDT [facility] ABS. IMMATURE GRANULOCYTES 0.04(H) 0.00 - 0.03 x10'3/uL 04/26/2023 2:20 PM CDT [facility] ABS. NUCLEATED RBC'S 0.00 0.00 x10'3/uL 04/26/2023 2:20 PM CDT [facility] PLT MORPH. DECREASED 04/26/2023 2:20 PM CDT [facility] RBC MORPHOLOGY NORMAL 04/26/2023 2:20 PM CDT [facility] 04/26/2023 1:13 PM CDT Roberta Alex MD LABORATORY Final Result [facility] [address] [employer] [address] [phone] documented in this encounter Visit Diagnoses Diagnosis Chronic ITP (idiopathic thrombocytopenia) ([facility])- Primary Immune thrombocytopenic purpura documented in this encounter Additional Health Concerns Infection Onset Date Last Indicated Resolved Time MRSA 06/05/2021 06/05/2021 documented as of this encounter Care Teams Svp Of Digital Relationship Specialty Start Date End Date Alejandro Blevins MD PCP - General FAMILY PRACTICE 12/10/19 documented as of this encounter
--- OUTSIDE RECORDS SUMMARY | 2024-07-11 05:40 | XMS_ITS | Encounter Summary ---
Author Organization [facility] Address [address] [place] [address]. [place], [place] [address] [place] [address] Care Team Providers Care Breaker Operator Name Role Phone Alejandro Blevins MD Primary Care Provider [phone] Encounter Details Date Type Department Care Team (Latest Contact Info) Description 01/05/2023 Travel Social History Tobacco Use Types Packs/Day Years Used Date Smoking Tobacco: Every Day Cigarettes Smokeless Tobacco: Never Alcohol Use Standard Drinks/Week Comments Not Currently 0 (1 standard drink = 0.6 oz pur e alcohol) Comments No Sex and Gender Information Value Date Recorded Sex Assigned at Not on file Legal Sex Female 11:30 PM HEALTHCARE RISK CONTROL CONSULTANT Gender Identity Female 11/10/2021 3:09 PM CDT [...] Assessment Author Status No 07/30/2020 10:48 PM HEALTHCARE RISK CONTROL CONSULTANT Acti ve * RETIRED Are you blind or do you have serious difficulty seeing, even when wearing glasses? Answer Date of Assessment Author Status No 07/30/2020 10:46 PM HEALTHCARE RISK CONTROL CONSULTANT Acti ve * Do you have serious difficulty walking or climbing stairs? Answer Date of Assessment Author Status No 07/30/2020 10:46 PM HEALTHCARE RISK CONTROL CONSULTANT Nella Le RN Active * Do you have difficulty dressing or bathing? Answer Date of Assessment Author Status No 07/30/2020 10:46 PM HEALTHCARE RISK CONTROL CONSULTANT Nella Le RN Active * Because of a physical, mental, or emotional condition, do you have difficulty doing errands alone such as visiting a doctor's office or shopping? Answer Date of Assessment Author Status No 07/30/2020 10:46 PM HEALTHCARE RISK CONTROL CONSULTANT Nella Le RN Active documented as of this encounter Mental Status * Because of a physical, mental, or emotional condition, do you have serious difficulty concentrating, remembering, or making decisions? Answer Entry Date Author Status No 07/30/2020 10:46 PM HEALTHCARE RISK CONTROL CONSULTANT Nella Le RN Active documented in this encounter Plan of Treatment Upcoming Encounters Date Type Department Care Team (Late st Contact Info) Description 09/25/2024 11:30 AM HEALTHCARE RISK CONTROL CONSULTANT Appointment [facility] [address] [place] [address] Roberta Alex MD [address] [place] [address] 09/25/2024 11:40 AM HEALTHCARE RISK CONTROL CONSULTANT Office Visit [facility] [address] [place] [address] Roberta Alex MD [address] [place] [address] documented as of this encounter Visit Diagnoses Not on filedocumented in this encounter Additional Health Concerns Infection Onset Date Last Indicated Resolved Time MRSA 06/05/2021 06/05/2021 documented as of this encounter Care Teams Breaker Operator Relationship Specialty Start Date End Date Alejandro Blevins MD PCP - General FAMILY PRACTICE 12/10/19 documented as of this encounter
--- OUTSIDE RECORDS SUMMARY | 2024-07-11 05:40 | XMS_ITS | Encounter Summary ---
Author Organization [facility] Address [address] [place] [address]. [place], [place] [address] [place] [address] Care Team Providers Care Lumber Inspector Name Role Phone Alejandro Blevins MD Primary Care Provider [phone] Encounter Details Date Type Department Care Team (Latest Contact Info) Description 06/09/2023 Travel Social History Tobacco Use Types Packs/Day Years Used Date Smoking Tobacco: Every Day Cigarettes Smokeless Tobacco: Never Alcohol Use Standard Drinks/Week Comments Not Currently 0 (1 standard drink = 0.6 oz pur e alcohol) Comments No Sex and Gender Information Value Date Recorded Sex Assigned at Not on file Legal Sex Female 11:30 PM ED TRANSPORTER Gender Identity Female 11/10/2021 3:09 PM CDT Sexual Orientation Straight 11/10/2021 3: 09 PM CDT documented as of this encounter Functional Status * RETIRED Are you deaf or do you have serious difficulty hearing Answer Date of Assessment Author Status No 07/30/2020 10:48 PM ED TRANSPORTER Acti ve * RETIRED Are you blind or do you have serious difficulty seeing, even when wearing glasses? Answer Date of Assessment Author Status No 07/30/2020 10:46 PM ED TRANSPORTER Acti ve * Do you have serious difficulty walking or climbing stairs? Answer Date of Assessment Author Status No 07/30/2020 10:46 PM ED TRANSPORTER Nella Le RN Active * Do you have difficulty dressing or bathing? Answer Date of Assessment Author Status No 07/30/2020 10:46 PM ED TRANSPORTER Nella Le RN Active * Because of a physical, mental, or emotional condition, do you have difficulty doing errands alone such as visiting a doctor's office or shopping? Answer Date of Assessment Author Status No 07/30/2020 10:46 PM ED TRANSPORTER Nella Le RN Active documented as of this encounter Mental Status * Because of a physical, mental, or emotional condition, do you have serious difficulty concentrating, remembering, or making decisions? Answer Entry Date Author Status No 07/30/2020 10:46 PM ED TRANSPORTER Nella Le RN Active documented in this encounter Plan of Treatment Upcoming Encounters Date Type Department Care Team (Late st Contact Info) Description 09/25/2024 11:30 AM ED TRANSPORTER Appointment [facility] [address] [place] [address] Roberta Alex MD [address] [place] [address] 09/25/2024 11:40 AM ED TRANSPORTER Office Visit [facility] [address] [address] Roberta Alex MD [address] [place] [address] documented as of this encounter Visit Diagnoses Not on filedocumented in this encounter Additional Health Concerns Infection Onset Date Last Indicated Resolved Time MRSA 06/05/2021 06/05/2021 documented as of this encounter Care Teams Lumber Inspector Relationship Specialty Start Date End Date Alejandro Blevins MD PCP - General FAMILY PRACTICE 12/10/19 documented as of this encounter
--- OUTSIDE RECORDS SUMMARY | 2024-07-11 05:40 | XMS_ITS | Encounter Summary ---
Author Organization [facility] Address [address] [place] [address]. [place], [place] [address] [place] [address] Care Team Providers Care Manifest Clerk Name Role Phone Alejandro Blevins MD Primary Care Provider [phone] Encounter Details Date Type Department Care Team (Latest Contact Info) Description 04/26/2023 Travel Social History Tobacco Use Types Packs/Day Years Used Date Smoking Tobacco: Every Day Cigarettes Smokeless Tobacco: Never Alcohol Use Standard Drinks/Week Comments Not Currently 0 (1 standard drink = 0.6 oz pur e alcohol) Comments No Sex and Gender Information Value Date Recorded Sex Assigned at Not on file Legal Sex Female 11:30 PM SPARES SCHEDULER Gender Identity Female 11/10/2021 3:09 PM CDT Sexual Orientation Straight 11/10/2021 3: 09 PM CDT documented as of this encounter Functional Status * RETIRED Are you deaf or do you have serious difficulty hearing Answer Date of Assessment Author Status No 07/30/2020 10:48 PM SPARES SCHEDULER Acti ve * RETIRED Are you blind or do you have serious difficulty seeing, even when wearing glasses? Answer Date of Assessment Author Status No 07/30/2020 10:46 PM SPARES SCHEDULER Acti ve * Do you have serious difficulty walking or climbing stairs? Answer Date of Assessment Author Status No 07/30/2020 10:46 PM SPARES SCHEDULER Nella Le RN Active * Do you have difficulty dressing or bathing? Answer Date of Assessment Author Status No 07/30/2020 10:46 PM SPARES SCHEDULER Nella Le RN Active * Because of a physical, mental, or emotional condition, do you have difficulty doing errands alone such as visiting a doctor's office or shopping? Answer Date of Assessment Author Status No 07/30/2020 10:46 PM SPARES SCHEDULER Nella Le RN Active documented as of this encounter Mental Status * Because of a physical, mental, or emotional condition, do you have serious difficulty concentrating, remembering, or making decisions? Answer Entry Date Author Status No 07/30/2020 10:46 PM SPARES SCHEDULER Nella Le RN Active documented in this encounter Plan of Treatment Upcoming Encounters Date Type Department Care Team (Late st Contact Info) Description 09/25/2024 11:30 AM SPARES SCHEDULER Appointment [facility] [address] [place] [address] Roberta Alex MD [address] [place] [address] 09/25/2024 11:40 AM SPARES SCHEDULER Office Visit [facility] [address] [facility] [address] Roberta Alex MD [address] [place] [address] documented as of this encounter Visit Diagnoses Not on filedocumented in this encounter Additional Health Concerns Infection Onset Date Last Indicated Resolved Time MRSA 06/05/2021 06/05/2021 documented as of this encounter Care Teams Manifest Clerk Relationship Specialty Start Date End Date Alejandro Blevins MD PCP - General FAMILY PRACTICE 12/10/19 documented as of this encounter
--- OUTSIDE RECORDS SUMMARY | 2024-07-11 05:40 | XMS_ITS | Encounter Summary ---
Author Organization [facility] Address [facility] [place] [address] [place] [address] Care Team Providers Care Plaster Die Maker Name Role Phone Alejandro Blevins MD Primary Care Provider [phone] Encounter Details Date Type Department Care Team (Latest Contact Info) Description 06/23/2023 11:19 AM GARDEN TRACTOR MECHANIC Hospital Encounter [facility] [address] [place] [address] Roberta Alex MD [address] [place] [address] Discharge Disposition: Home or Self Care (Routine Discharge) Social History Tobacco Use Types Packs/Day Years Used Date Smoking Tobacco: Every Day Cigarettes Smokeless Tobacco: Never Alcohol Use Standard Drinks/Week Comments Not Currently 0 (1 standard drink = 0.6 oz pur e alcohol) Comments No Sex and Gender Information Value Date Recorded Sex Assigned at Not on file Legal Sex Female 11:30 PM GARDEN TRACTOR MECHANIC Gender Identity Female 11/10/2021 3:09 PM CDT Sexual Orientation Straight 11/10/2021 3: 09 PM CDT documented as of this encounter Functional Status * RETIRED Are you deaf or do you have serious difficulty hearing Answer Date of Assessment Author Status No 07/30/2020 10:48 PM GARDEN TRACTOR MECHANIC Acti ve * RETIRED Are you blind or do you have serious difficulty seeing, even when wearing glasses? Answer Date of Assessment Author Status No 07/30/2020 10:46 PM GARDEN TRACTOR MECHANIC Acti ve * Do you have serious [...] Author Status No 07/30/2020 10:46 PM Nella Lenoardo RN Active documented in this encounter Medications [...] st Contact Info) Description 09/25/2024 11:30 AM GARDEN TRACTOR MECHANIC Appointment [facility] [address] [place] [address] Roberta Alex MD [address] [place], [place] [phone] 09/25/2024 11:40 AM GARDEN TRACTOR MECHANIC Office Visit [facility] [place] [address] Roberta Alex MD [address] [place], [place] [phone] documented as of this encounter Procedures Procedure Name Priority Date/Time Associated Diagnosis Comments CBC W/DIFF AUTOMATED Routine 06/23/2023 11:33 AM GARDEN TRACTOR MECHANIC Iron deficiency anemia secondary to inadequate dietary iron intake documented in this encounter Results * (ABNORMAL) CBC W/DIFF AUTOMATED (06/23/2023 11:33 AM GARDEN TRACTOR MECHANIC) WBC 16.97(H) 4.00 - 10.80 x10'3/uL 06/23/2023 11:45 [address] [facility] RBC 4.74 4.10 - 5.40 x10'6/uL 06/23/2023 11:[address] [facility] HGB 13.8 12.0 - 16.0 G/DL 06/23/2023 11:[address] [facility] HCT 42.5 36.0 - 47.0 % 06/23/2023 11:[address] G[address] TRA[address]IC [facility] MCV 89.7 78.0 - 100.0 FL 06/23/2023 11:[address] G[address] TRA[address] [facility] MCH 29.1 27.0 - 31.0 PG 06/23/2023 11:[address] TRA[address]IC [facility] MCHC 32.5(L) 33.0 - 36.0 G/DL 06/23/2023 11:[address] [facility] RDW 12.6 11.5 - 14.5 % 06/23/2023 11:45 AM [facility] PLT 48(L) 150 - 350 x10'3/uL 06/23/2023 11:45 AM [facility] MPV RESULTS NOT AVAILABLE 7.4 - 10.4 FL 06/23/2023 11:45 AM [facility] CBC COMMENT NORMAL REFERENCE RANGE NOT ESTABLISHED FOR THE PROPORTIONAL LEUKOCYTE DIFFERENTIAL. 06/23/2023 11:45 AM [facility] NEUTROPHILS % 73.5 % 06/23/2023 12:34 PM [facility] LYMPHOCYTES % 14.7 % 06/23/2023 12:34 PM [facility] MONOCYTES % 5.0 % 06/23/2023 12:34 PM [facility] EOSINOPHILS % 5.8 % 06/23/2023 12:34 PM [facility] BASOPHILS % 0.6 % 06/23/2023 12:34 PM [facility] IMMATURE GRANS % 0.4 % 06/23/20 12:34 PM [facility] NRBC 0.0 % 06/23/2023 12:34 PM [facility] ABS. NEUTROPHILS 12.48(H) 1.60 - 8.30 x10'3/uL 06/23/2023 12:34 PM [facility] ABS. LYMPHOCYTES 2.49 0.80 - 4.70 x10'3/uL 06/23/2023 12:34 PM [facility] ABS. MONOCYTES 0.85 0.00 - 1.50 x10'3/uL 06/23/2023 12:34 PM [facility] ABS. EOSINOPHILS 0.98(H) 0.00 - 0.40 x10'3/uL 06/23/2023 12:34 PM [facility] ABS. BASOPHILS 0.10 0.00 - 0.20 x10'3/uL 06/23/2023 12:34 PM [facility] ABS. IMMATURE GRANULOCYTES 0.07(H) 0.00 - 0.03 x10'3/uL 06/23/2023 12:34 PM [facility] ABS. NUCLEATED RBC'S 0.00 0.00 x10'3/uL 06/23/2023 12:[address] GARDEN TRACTOR MECHANIC [facility] PLT MORPH. DECREASED 06/23/2023 12:[address] GARDEN TRACTOR MECHANIC [facility] RBC MORPHOLOGY NORMAL 06/23/2023 12:[address] GARDEN TRACTOR MECHANIC [facility] 06/23/2023 11:3 3 AM GARDEN TRACTOR MECHANIC Roberta Alex MD LABORATORY Final Result [facility] [address] [place] [address], documented in this encounter Visit Diagnoses Diagnosis Iron deficiency anemia secondary to inadequate dietary iron intake documented in this encounter Additional Health Concerns Infection Onset Date Last Indicated Resolved Time MRSA 06/05/2021 06/05/2021 documented as of this encounter Care Teams Plaster Die Maker Relationship Specialty Start Date End Date Alejandro Blevins MD PCP - General FAMILY PRACTICE 12/10/19 documented as of this encounter
--- OUTSIDE RECORDS SUMMARY | 2024-07-11 05:40 | XMS_ITS | Encounter Summary ---
Author Organization [facility] Address [facility] [place] [address] [place] [address] Care Team Providers Care Supervisor Feed House Name Role Phone Alejandro Blevins MD Primary Care Provider [phone] Encounter Details Date Type Department Care Team (Latest Contact Info) Description 05/03/2023 3:10 PM CDT - 05/03/2023 11:59 PM CDT Hospital Encounter [address] [place] [address] Roberta Alex MD [address] [place] [address] Discharge Disposition: Home or Self Care (Routine Discharge) Social History Tobacco Use Types Packs/Day Years Used Date Smoking Tobacco: Every Day Cigarettes Smokeless Tobacco: Never Alcohol Use Standard Drinks/Week Comments Not Currently 0 (1 standard drink = 0.6 oz pur e alcohol) Comments No Sex and Gender Information Value Date Recorded Sex Assigned at Not on file Legal Sex Female 11:30 PM PERSONAL FITNESS MANAGER Gender Identity Female 11/10/2021 3:09 PM CDT Sexual Orientation Straight 11/10/2021 3: 09 PM CDT documented as of this encounter Functional Status * RETIRED Are you deaf or do you have serious difficulty hearing Answer Date of Assessment Author Status No 07/30/2020 10:48 PM PERSONAL FITNESS MANAGER Acti ve * RETIRED Are you blind or do you have serious difficulty seeing, even when wearing glasses? Answer Date of Assessment Author Status No 07/30/2020 10:46 PM PERSONAL FITNESS MANAGER Acti ve * Do you have [...] st Contact Info) Description 09/25/2024 11:30 AM PERSONAL FITNESS MANAGER Appointment [facility] [address] [place] [address] Roberta Alex MD [address] [place] [address] 09/25/2024 11:40 AM PERSONAL FITNESS MANAGER Office Visit [facility] [address] [place] [address] Roberta Alex MD [address] [place] [address] documented as of this encounter Visit Diagnoses Not on filedocumented in this encounter Additional Health Concerns Infection Onset Date Last Indicated Resolved Time MRSA 06/05/2021 06/05/2021 documented as of this encounter Care Teams Supervisor Feed House Relationship Specialty Start Date End Date Alejandro Blevins MD PCP - General FAMILY PRACTICE 12/10/19 documented as of this encounter
--- OUTSIDE RECORDS SUMMARY | 2024-07-11 05:40 | XMS_ITS | Encounter Summary ---
Author Organization [facility] Address [address] [place] [address]. [place], [place] [address] [place] [address] Care Team Providers Care Retail Associate Name Role Phone Alejandro Blevins MD Primary Care Provider Encounter Details Date Type Department Care Team (Latest Contact Info) Description 06/23/2023 Travel Social History Tobacco Use Types Packs/Day Years Used Date Smoking Tobacco: Every Day Cigarettes Smokeless Tobacco: Never Alcohol Use Standard Drinks/Week Comments Not Currently 0 (1 standard drink = 0.6 oz pur e alcohol) Comments No Sex and Gender Information Value Date Recorded Sex Assigned at Not on file Legal Sex Female 11:30 PM HEEL SEAT LASTER Gender Identity Female 11/10/2021 3:09 PM CDT Sexual Orientation Straight 11/10/2021 3: 09 PM CDT documented as of this encounter Functional Status * RETIRED Are you deaf or do you have serious difficulty hearing Answer Date of Assessment Author Status No 07/30/2020 10:48 PM HEEL SEAT LASTER Acti ve * RETIRED Are you blind or do you have serious difficulty seeing, even when wearing glasses? Answer Date of Assessment Author Status No 07/30/2020 10:46 PM HEEL SEAT LASTER Acti ve * Do you have serious difficulty walking or climbing stairs? Answer Date of Assessment Author Status No 07/30/2020 10:46 PM HEEL SEAT LASTER Nella Le RN Active * Do you have difficulty dressing or bathing? Answer Date of Assessment Author Status No 07/30/2020 10:46 PM HEEL SEAT LASTER Nella Le RN Active * Because of a physical, mental, or emotional condition, do you have difficulty doing errands alone such as visiting a doctor's office or shopping? Answer Date of Assessment Author Status No 07/30/2020 10:46 PM HEEL SEAT LASTER Nella Le RN Active documented as of this encounter Mental Status * Because of a physical, mental, or emotional condition, do you have serious difficulty concentrating, remembering, or making decisions? Answer Entry Date Author Status No 07/30/2020 10:46 PM HEEL SEAT LASTER Nella Le RN Active documented in this encounter Plan of Treatment Upcoming Encounters Date Type Department Care Team (Late st Contact Info) Description 09/25/2024 11:30 AM HEEL SEAT LASTER Appointment [facility] [address] [place] [address] Roberta Alex MD [address] [place] [address] 09/25/2024 11:40 AM HEEL SEAT LASTER Office Visit [facility] [address] [place] [address] Roberta Alex MD [address] [place] [address] documented as of this encounter Visit Diagnoses Not on filedocumented in this encounter Additional Health Concerns Infection Onset Date Last Indicated Resolved Time MRSA 06/05/2021 06/05/2021 documented as of this encounter Care Teams Retail Associate Relationship Specialty Start Date End Date Alejandro Blevins MD PCP - General FAMILY PRACTICE 12/10/19 documented as of this encounter
--- OUTSIDE RECORDS SUMMARY | 2024-07-11 05:40 | XMS_ITS | Encounter Summary ---
Author Organization [facility] Address [address] [place] [address]. [place], [place] [address] [place] [address] Care Team Providers Care Epic Cadence Specialists Name Role Phone Alejandro Blevins MD Primary Care Provider [phone] Encounter Details Date Type Department Care Team (Latest Contact Info) Description 01/10/2023 Travel Social History Tobacco Use Types Packs/Day Years Used Date Smoking Tobacco: Every Day Cigarettes Smokeless Tobacco: Never Alcohol Use Standard Drinks/Week Comments Not Currently 0 (1 standard drink = 0.6 oz pur e alcohol) Comments No Sex and Gender Information Value Date Recorded Sex Assigned at Not on file Legal Sex Female 11:30 PM BLOOD BANK CREDIT CLERK Gender Identity Female 11/10/2021 3:09 PM [...] Assessment Author Status No 07/30/2020 10:48 PM BLOOD BANK CREDIT CLERK Acti ve * RETIRED Are you blind or do you have serious difficulty seeing, even when wearing glasses? Answer Date of Assessment Author Status No 07/30/2020 10:46 PM BLOOD BANK CREDIT CLERK Acti ve * Do you have serious difficulty walking or climbing stairs? Answer Date of Assessment Author Status No 07/30/2020 10:46 PM BLOOD BANK CREDIT CLERK Nella Le RN Active * Do you have difficulty dressing or bathing? Answer Date of Assessment Author Status No 07/30/2020 10:46 PM BLOOD BANK CREDIT CLERK Nella Le RN Active * Because of a physical, mental, or emotional condition, do you have difficulty doing errands alone such as visiting a doctor's office or shopping? Answer Date of Assessment Author Status No 07/30/2020 10:46 PM BLOOD BANK CREDIT CLERK Nella eL RN Active documented as of this encounter Mental Status * Because of a physical, mental, or emotional condition, do you have serious difficulty concentrating, remembering, or making decisions? Answer Entry Date Author Status No 07/30/2020 10:46 PM BLOOD BANK CREDIT CLERK Nella Le RN Active documented in this encounter Plan of Treatment Upcoming Encounters Date Type Department Care Team (Late st Contact Info) Description 09/25/2024 11:30 AM BLOOD BANK CREDIT CLERK Appointment [facility] [address] [place] [address] Roberta Alex MD [address] [place] [id number] 09/25/2024 11:40 AM BLOOD BANK CREDIT CLERK Office Visit [facility] [address] [facility] [place] [address] Roberta Alex MD [address] [place] [address] documented as of this encounter Visit Diagnoses Not on filedocumented in this encounter Additional Health Concerns Infection Onset Date Last Indicated Resolved Time MRSA 06/05/2021 06/05/2021 documented as of this encounter Care Teams Epic Cadence Specialists Relationship Specialty Start Date End Date Alejandro Blevins MD PCP - General FAMILY PRACTICE 12/10/19 documented as of this encounter
--- OUTSIDE RECORDS SUMMARY | 2024-07-11 05:40 | XMS_ITS | Encounter Summary ---
Author Organization [facility] Address [address] [place] [address]. [place] [address] [place] [address] Care Team Providers Care Outreach Counselor Name Role Phone Alejandro Blevins MD Primary Care Provider [phone] Encounter Details Date Type Department Care Team (Latest Contact Info) Description 01/10/2023 12:20 PM CDT - 01/10/2023 12:24 PM CDT Hospital Encounter [address] [place] [address] Roberta Alex MD [address] [place] [address] Discharge Disposition: Home or Self Care (Routine Discharge) Social History Tobacco Use Types Packs/Day Years Used Date Smoking Tobacco: Every Day Cigarettes Smokeless Tobacco: Never Alcohol Use Standard Drinks/Week Comments Not Currently 0 (1 standard drink = 0.6 oz pur e alcohol) Comments No Sex and Gender Information Value Date Recorded Sex Assigned at Not on file Legal Sex Female 11:30 PM ASH KIER BOILER Gender Identity Female 11/10/2021 3:09 PM CDT [...] Assessment Author Status No 07/30/2020 10:48 PM ASH KIER BOILER Acti ve * RETIRED Are you blind or do you have serious difficulty seeing, even when wearing glasses? Answer Date of Assessment Author Status No 07/30/2020 10:46 PM ASH KIER BOILER Acti ve * Do you have serious [...] st Contact Info) Description 09/25/2024 11:30 AM ASH KIER BOILER Appointment [facility] [place] [address] [address] Roberta Alex MD [address] [place] [address] 09/25/2024 11:40 AM ASH KIER BOILER Office Visit [facility] [place] [address] [address] Roberta Alex MD [address] [place] [address] documented as of this encounter Procedures Procedure Name Priority Date/Time Associated Diagnosis Comments CBC W/DIFF AUTOMATED Routine 01/10/2023 12:39 PM CDT Acute ITP (CMS/HCC HHS/HCC) documented in this encounter Results * (ABNORMAL) CBC W/DIFF AUTOMATED (01/10/2023 12:39 PM CDT) WBC 9.36 4.00 - 10.80 x10'3/uL 01/10/2023 12:47 PM CDT [facility] RBC 4.88 4.10 - 5.40 x10'6/uL 01/10/2023 12:47 PM CDT [facility] HGB 14.2 12.0 - 16.0 G/DL 01/10/2023 12:47 PM CDT [facility] HCT 43.8 36.0 - 47.0 % 01/10/2023 12:47 PM CDT [facility] MCV 89.8 78.0 - 100.0 FL 01/10/2023 12:47 PM CDT [facility] MCH 29.1 27.0 - 31.0 PG 01/10/2023 12:47 PM CDT [facility] MCHC 32.4(L) 33.0 - 36.0 G/DL 01/10/2023 12:47 PM CDT [facility] RDW 12.7 11.5 - 14.5 % 01/10/2023 12:47 PM CDT [facility] PLT 146(L) 150 - 350 x10'3/uL 01/10/2023 12:47 PM CDT [facility] MPV 13.6(H) 7.4 - 10.4 FL 01/10/2023 12:47 PM CDT [facility] CBC COMMENT NORMAL REFERENCE RANGE NOT ESTABLISHED FOR THE PROPORTIONAL LEUKOCYTE DIFFERENTIAL. 01/10/2023 12:47 PM CDT [facility] NEUTROPHILS % 65.3 % 01/10/2023 12:47 PM CDT [facility] LYMPHOCYTES % 20.9 % 01/10/2023 12:47 PM CDT [facility] MONOCYTES % 6.5 % 01/10/2023 12:47 PM CDT [facility] EOSINOPHILS % 6.3 % 01/10/2023 12:47 PM CDT [facility] BASOPHILS % 0.7 % 01/10/2023 12:47 PM CDT [facility] IMMATURE GRANS % 0.3 % 01/11/20 12:47 PM CDT [facility] NRBC 0.0 % 01/10/2023 12:47 PM CDT [facility] ABS. NEUTROPHILS 6.10 1.60 - 8.30 x10'3/uL 01/10/2023 12:47 PM CDT [facility] ABS. LYMPHOCYTES 1.96 0.80 - 4.70 x10'3/uL 01/10/2023 12:47 PM CDT [facility] ABS. MONOCYTES 0.61 0.00 - 1.50 x10'3/uL 01/10/2023 12:47 PM CDT [facility] ABS. EOSINOPHILS 0.59(H) 0.00 - 0.40 x10'3/uL 01/10/2023 12:47 PM CDT [facility] ABS. BASOPHILS 0.07 0.00 - 0.20 x10'3/uL 01/10/2023 12:47 PM CDT [facility] ABS. IMMATURE GRANULOCYTES 0.03 0.00 - 0.03 x10'3/uL 01/10/2023 12:47 PM CDT [facility] ABS. 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
--- OUTSIDE RECORDS SUMMARY | 2024-07-11 05:40 | XMS_ITS | Encounter Summary ---
Author Organization [facility] Address [address] [place] [address]. [place], [place] [address] [place] [address] Care Team Providers Care Information Systems Analyst Name Role Phone Alejandro Blevins MD Primary Care Provider [phone] Encounter Details Date Type Department Care Team (Latest Contact Info) Description 01/20/2023 Travel Social History Tobacco Use Types Packs/Day Years Used Date Smoking Tobacco: Every Day Cigarettes Smokeless Tobacco: Never Alcohol Use Standard Drinks/Week Comments Not Currently 0 (1 standard drink = 0.6 oz pur e alcohol) Comments No Sex and Gender Information Value Date Recorded Sex Assigned at Not on file Legal Sex Female 11:30 PM CROCHETER Gender Identity Female 11/10/2021 3:09 PM CDT [...] Assessment Author Status No 07/30/2020 10:48 PM CROCHETER Acti ve * RETIRED Are you blind or do you have serious difficulty seeing, even when wearing glasses? Answer Date of Assessment Author Status No 07/30/2020 10:46 PM CROCHETER Acti ve * Do you have serious difficulty walking or climbing stairs? Answer Date of Assessment Author Status No 07/30/2020 10:46 PM CROCHETER Nella Le RN Active * Do you have difficulty dressing or bathing? Answer Date of Assessment Author Status No 07/30/2020 10:46 PM CROCHETER Nella Le RN Active * Because of a physical, mental, or emotional condition, do you have difficulty doing errands alone such as visiting a doctor's office or shopping? Answer Date of Assessment Author Status No 07/30/2020 10:46 PM CROCHETER Nella Le RN Active documented as of this encounter Mental Status * Because of a physical, mental, or emotional condition, do you have serious difficulty concentrating, remembering, or making decisions? Answer Entry Date Author Status No 07/30/2020 10:46 PM CROCHETER Nella Le RN Active documented in this encounter Plan of Treatment Upcoming Encounters Date Type Department Care Team (Late st Contact Info) Description 09/25/2024 11:30 AM CROCHETER Appointment [facility] [address] [place] [address] Roberta Alex MD [address] [place] [id number] 09/25/2024 11:40 AM CROCHETER Office Visit [facility] [address] [place] [address] Roberta Alex MD [address] [place] [address] documented as of this encounter Visit Diagnoses Not on filedocumented in this encounter Additional Health Concerns Infection Onset Date Last Indicated Resolved Time MRSA 06/05/2021 06/05/2021 documented as of this encounter Care Teams Information Systems Analyst Relationship Specialty Start Date End Date Alejandro Blevins MD PCP - General FAMILY PRACTICE 12/10/19 documented as of this encounter
--- OUTSIDE RECORDS SUMMARY | 2024-07-11 05:40 | XMS_ITS | Encounter Summary ---
Author Organization [facility] Address [facility] [place] [address] [place] [address] Care Team Providers Care Blending Tank Tender Helper Name Role Phone Alejandro Blevins MD Primary Care Provider [phone] Reason for Visit * Reason Comments Injection * Treatment/Therapy Plan Authorization (Routine) - Closed Specialty Diagnoses / Procedures Referred By Contac t Referred To Contact Diagnoses Chronic ITP (idiopathic thrombocytopenia) ([facility]) Thrombocytopenia ([facility]) Procedures ITP RomiPLOStim Roberta Alex MD [address] [place] [address] Phone: tel: fax: [facility] [place] [address] Phone: tel: Referral ID Status Reason Start Date Expiration Date Visits Re quested Visits Authorized [id number] Closed 12/23/2022 03/25/2023 1 1 Encounter Details Date Type Department Care Team (Late st Contact Info) Description 01/10/2023 12:25 PM CDT - 01/10/2023 11:59 PM CDT Hospital Encounter [facility] [place] [address] Alejandro Blevins MD [address] [place] [address] Injection Discharge Disposition: Home or Self Care [...] on file Legal Sex Female 11:30 PM LEAD RECREATION ASSISTANT Gender Identity Female 11/10/2021 3:09 PM CDT [...] Sign Reading Time Taken Comments Blood Pressure 121/74 01/10/2023 1:17 PM CDT Pulse 69 01/10/2023 1:17 PM CDT Temperature 36.6 ??C (97.8 ??F) 01/10/2023 1:17 PM CD T Respiratory Rate 16 01/10/2023 1:17 PM CDT Oxygen Saturation 100% 01/10/2023 1:17 PM CDT Inhaled Oxygen Concentration - - Weight 75.8 kg (167 lb 3.2 oz) 01/10/2023 1:17 P M CDT Height - - Body Mass Index 29.62 10/28/2022 3:44 PM CDT documented in this encounter Functional Status * RETIRED Are you deaf or do you have serious difficulty hearing Answer Date of Assessment Author Status No 07/30/2020 10:48 PM LEAD RECREATION ASSISTANT Acti ve * RETIRED Are you blind or do you have serious difficulty seeing, even when wearing glasses? Answer Date of Assessment Author Status No 07/30/2020 10:46 PM LEAD RECREATION ASSISTANT Acti ve * Do you have serious difficulty walking or climbing stairs? Answer Date of Assessment Author Status No 07/30/2020 10:46 PM LEAD RECREATION ASSISTANT Nella Le RN Active * Do you have difficulty dressing or bathing? Answer Date of Assessment Author Status No 07/30/2020 10:46 PM LEAD RECREATION ASSISTANT Nella Le RN Active * Because of a physical, mental, or emotional condition, do you have difficulty doing errands alone such as visiting a doctor's office or shopping? Answer Date of Assessment Author Status No 07/30/2020 10:46 PM LEAD RECREATION ASSISTANT Nella Le RN Active documented as of this encounter Mental Status * Because of a physical, mental, or emotional condition, do you have serious difficulty concentrating, remembering, or making decisions? Answer Entry Date Author Status No 07/30/2020 10:46 PM LEAD RECREATION ASSISTANT Nella Le RN Active documented in this encounter Medications [...] encounter Progress Notes * Cecilia Healy - 01/10/2023 12:30 PM CDTEncounter addended by: Cecilia Healy on: 01/11/2023 9:40 AM Actions taken: Charge Capture section accepted * Leslie Soriano RN - 01/10/2023 12:30 PM CDT PATIENT ASSESSMENT: Admitted via: Ambulatory [...] st Contact Info) Description 09/25/2024 11:30 AM LEAD RECREATION ASSISTANT Appointment [facility] [address] [place] [address] Roberta Alex MD [address] [place] [address] 09/25/2024 11:40 AM LEAD RECREATION ASSISTANT Office Visit [facility] [address] [place] [address] Roberta Alex MD [address] [place] [address] documented as of this encounter Visit Diagnoses Diagnosis Chronic ITP (idiopathic thrombocytopenia) (CMS/HCC HHS/HCC)- Primary Immune thrombocytopenic purpura Thrombocytopenia (CMS/HCC) Thrombocytopenia, unspecified documented in this encounter Administered Medications Inactive Administered Medications - up to 3 most recent administrations Medication Order MAR Action Action Date Dose Rate Site romiPLOStim (NPLATE) injection 303.2 mcg 303.2 mcg (4 mcg/kg ? 75.8 kg), Subcutaneous, Weekly, First dose on 01/10/23 at 1315, Until Discontinued, MAX weekly dose 10 mcg/kg. Adjust the dose of Romiplostim (Nplate) following perscribing information. Hold if PLTS greater than 150.Indications:Chronic ITP (idiopathic thrombocytopenia) (CMS/HCC HHS/HCC),Thrombocytopenia (CMS/HCC) Given 01/10/2023 1:15 PM CDT 303.2 mcg Right Arm documented in this encounter Additional Health Concerns Infection Onset Date Last Indicated Resolved Time MRSA 06/05/2021 06/05/2021 documented as of this encounter Care Teams Blending Tank Tender Helper Relationship Specialty Start Date End Date Alejandro Blevins MD PCP - General FAMILY PRACTICE 12/10/19 documented as of this encounter
--- OUTSIDE RECORDS SUMMARY | 2024-07-11 05:40 | XMS_ITS | Encounter Summary ---
Author Organization [facility] Address [address] [place] [address]. [place], [place] [id number] [place] [address] Care Team Providers Care [employer] Name Role Phone Alejandro Blevins MD Primary Care Provider Encounter Details Date Type Department Care Team (Latest Contact Info) Description 12/31/2022 Travel Social History Tobacco Use Types Packs/Day Years Used Date Smoking Tobacco: Every Day Cigarettes Smokeless Tobacco: Never Alcohol Use Standard Drinks/Week Comments Not Currently 0 (1 standard drink = 0.6 oz pur e alcohol) Comments No Sex and Gender Information Value Date Recorded Sex Assigned at Not on file Legal Sex Female 11:30 PM PATIENT ADMITTING REPRESENTATIVE Gender Identity Female 11/10/2021 3:09 PM CDT Sexual Orientation Straight 11/10/2021 3: 09 PM CDT COVID-19 Exposure Response Date Recorded In the last 10 days, have yo u been in contact with someone who was confirmed or suspected to have Coronavirus/COVID-19? No / Unsure 12/31/2022 12:58 PM CDT documented as of this encounter Functional Status * RETIRED Are you deaf or do you have serious difficulty hearing Answer Date of Assessment Author Status No 07/30/2020 10:48 PM PATIENT ADMITTING REPRESENTATIVE Acti ve * RETIRED Are you blind or do you have serious difficulty seeing, even when wearing glasses? Answer Date of Assessment Author Status No 07/30/2020 10:46 PM PATIENT ADMITTING REPRESENTATIVE Acti ve * Do you have serious difficulty walking or climbing stairs? Answer Date of Assessment Author Status No 07/30/2020 10:46 PM PATIENT ADMITTING REPRESENTATIVE Nella Le RN Active * Do you have difficulty dressing or bathing? Answer Date of Assessment Author Status No 07/30/2020 10:46 PM PATIENT ADMITTING REPRESENTATIVE Nella Le RN Active * Because of a physical, mental, or emotional condition, do you have difficulty doing errands alone such as visiting a doctor's office or shopping? Answer Date of Assessment Author Status No 07/30/2020 10:46 PM PATIENT ADMITTING REPRESENTATIVE Nella Le RN Active documented as of this encounter Mental Status * Because of a physical, mental, or emotional condition, do you have serious difficulty concentrating, remembering, or making decisions? Answer Entry Date Author Status No 07/30/2020 10:46 PM PATIENT ADMITTING REPRESENTATIVE Nella Le RN Active documented in this encounter Plan of Treatment Upcoming Encounters Date Type Department Care Team (Late st Contact Info) Description 09/25/2024 11:30 AM PATIENT ADMITTING REPRESENTATIVE Appointment [facility] [address] [address] Roberta Alex MD [address] [place] [id number] 09/25/2024 11:40 AM PATIENT ADMITTING REPRESENTATIVE Office Visit [facility] [address] [place] [address] Roberta Alex MD [address] [place] [address] documented as of this encounter Visit Diagnoses Not on filedocumented in this encounter Additional Health Concerns Infection Onset Date Last Indicated Resolved Time MRSA 06/05/2021 06/05/2021 documented as of this encounter Care Teams [employer] Relationship Specialty Start Date End Date Alejandro Blevins MD PCP - General FAMILY PRACTICE 12/10/19 documented as of this encounter
--- OUTSIDE RECORDS SUMMARY | 2024-07-11 05:40 | XMS_ITS | Encounter Summary ---
Author Organization [facility] Address Formerly [facility] [facility] [place] [address] [place] [address] Care Team Providers Care Recreational Therapist Name Role Phone Alejandro Blevins MD Primary Care Provider [phone] Encounter Details Date Type Department Care Team (Late st Contact Info) Description 05/26/2023 Orders Only [address] [place] [address] Roberta Alex MD [address] [place] [address] Social History Tobacco Use Types Packs/Day Years Used Date Smoking Tobacco: Every Day Cigarettes Smokeless Tobacco: Never Alcohol Use Standard Drinks/Week Comments Not Currently 0 (1 standard drink = 0.6 oz pur e alcohol) Comments No Sex and Gender Information Value Date Recorded Sex Assigned at Not on file Legal Sex Female 11:30 PM CORN GRINDER Gender Identity Female 11/10/2021 3:09 PM CDT Sexual Orientation Straight 11/10/2021 3: 09 PM CDT documented as of this encounter Functional Status * RETIRED Are you deaf or do you have serious difficulty hearing Answer Date of Assessment Author Status No 07/30/2020 10:48 PM CORN GRINDER Acti ve * RETIRED Are you blind or do you have serious difficulty seeing, even when wearing glasses? Answer Date of Assessment Author Status No 07/30/2020 10:46 PM CORN GRINDER Acti ve * Do you have serious difficulty walking or climbing stairs? Answer Date of Assessment Author Status No 07/30/2020 10:46 PM CORN GRINDER Bringuet, Nella C, RN Active * Do you have difficulty dressing or bathing? Answer Date of Assessment Author Status No 07/30/2020 10:46 PM CORN GRINDER Nella Le RN Active * Because [...] st Contact Info) Description 09/25/2024 11:30 AM CORN GRINDER Appointment [facility] [address] [place] [address] Roberta Alex MD [address] [place] [address] 09/25/2024 11:40 AM CORN GRINDER Office Visit [facility] [address] [place] [address] Roberta Alex MD [address] [place] [address] documented as of this encounter Results * (ABNORMAL) CBC W/DIFF AUTOMATED (05/26/2023 11:55 AM CDT) [facility] WBC 11.80(H) 4.00 - 10.80 x10'3/uL 05/26/2023 12:26 PM CDT [facility] RBC 4.75 4.10 - 5.40 x10'6/uL 05/26/2023 12:26 PM CDT [facility] HGB 13.7 12.0 - 16.0 G/DL 05/26/2023 12:26 PM CDT [facility] HCT 42.6 36.0 - 47.0 % 05/26/2023 12:26 PM CDT [facility] MCV 89.7 78.0 - 100.0 FL 05/26/2023 12:26 PM CDT [facility] MCH 28.8 27.0 - 31.0 PG 05/26/2023 12:26 PM CDT [facility] MCHC 32.2(L) 33.0 - 36.0 G/DL 05/26/2023 12:26 PM CDT [facility] RDW 12.0 11.5 - 14.5 % 05/26/2023 12:26 PM CDT [facility] PLT 43(L) 150 - 350 x10'3/uL 05/26/2023 12:26 PM CDT [facility] MPV RESULTS NOT AVAILABLE 7.4 - 10.4 FL 05/26/2023 12:26 PM CDT [facility] CBC COMMENT NORMAL REFERENCE RANGE NOT ESTABLISHED FOR THE PROPORTIONAL LEUKOCYTE DIFFERENTIAL. 05/26/2023 12:26 PM CDT [facility] NEUTROPHILS % 73.5 % 05/26/2023 1:19 PM CDT [facility] LYMPHOCYTES % 15.8 % 05/26/2023 1:19 PM CDT [facility] MONOCYTES % 4.2 % 05/26/2023 1:19 PM CDT [facility] EOSINOPHILS % 5.4 % 05/26/2023 1:19 PM CDT [facility] BASOPHILS % 0.8 % 05/26/2023 1:19 PM CDT [facility] IMMATURE GRANS % 0.3 % 05/26/20 1:19 PM CDT [facility] NRBC 0.0 % 05/26/2023 1:19 PM CDT [facility] ABS. NEUTROPHILS 8.67(H) 1.60 - 8.30 x10'3/uL 05/26/2023 1:19 PM CDT [facility] ABS. LYMPHOCYTES 1.86 0.80 - 4.70 x10'3/uL 05/26/2023 1:19 PM CDT [facility] ABS. MONOCYTES 0.50 0.00 - 1.50 x10'3/uL 05/26/2023 1:19 PM CDT [facility] ABS. EOSINOPHILS 0.64(H) 0.00 - 0.40 x10'3/uL 05/26/2023 1:19 PM CDT [facility] ABS. BASOPHILS 0.09 0.00 - 0.20 x10'3/uL 05/26/2023 1:19 PM CDT [facility] ABS. IMMATURE GRANULOCYTES 0.04(H) 0.00 - 0.03 x10'3/uL 05/26/2023 1:19 PM CDT [facility] ABS. NUCLEATED RBC'S 0.00 0.00 x10'3/uL 05/26/2023 1:19 PM CDT [facility] PLT MORPH. DECREASED 05/26/2023 1:19 PM CDT [facility] RBC MORPHOLOGY NORMAL 05/26/2023 1:19 PM CDT [facility] 05/26/2023 11:5 5 AM CDT Roberta Alex MD LABORATORY Final Result [facility] [address] [place] [address], documented in this encounter Visit Diagnoses Diagnosis Iron deficiency anemia secondary to inadequate dietary iron intake- Primary documented in this encounter Additional Health Concerns Infection Onset Date Last Indicated Resolved Time MRSA 06/05/2021 06/05/2021 documented as of this encounter Care Teams Recreational Therapist Relationship Specialty Start Date End Date Alejandro Blevins MD PCP - General FAMILY PRACTICE 12/10/19 documented as of this encounter
--- OUTSIDE RECORDS SUMMARY | 2024-07-11 05:40 | XMS_ITS | Encounter Summary ---
Author Organization [facility] Address [address] [place] [address]. [place] [address] [place] [address] Care Team Providers Care [employer] Supervisor Name Role Phone Alejandro Blevins MD Primary Care Provider [phone] Encounter Details Date Type Department Care Team (Latest Contact Info) Description 06/09/2023 11:29 AM APARTMENT MAINTENANCE WORKER - 06/09/2023 11:59 PM [facility] Encounter [address] [place] [address] Roberta Alex MD [address] [place] [address] Discharge Disposition: Home or Self Care (Routine Discharge) Social History Tobacco Use Types Packs/Day Years Used Date Smoking Tobacco: Every Day Cigarettes Smokeless Tobacco: Never Alcohol Use Standard Drinks/Week Comments Not Currently 0 (1 standard drink = 0.6 oz pur e alcohol) Comments No Sex and Gender Information Value Date Recorded Sex Assigned at Not on file Legal Sex Female 11:30 PM APARTMENT MAINTENANCE WORKER Gender Identity Female 11/10/2021 3:09 PM CDT Sexual Orientation Straight 11/10/2021 3: 09 PM CDT documented as of this encounter Functional Status * RETIRED Are you deaf or do you have serious difficulty hearing Answer Date of Assessment Author Status No 07/30/2020 10:48 PM APARTMENT MAINTENANCE WORKER Acti ve * RETIRED Are you blind or do you have serious difficulty seeing, even when wearing glasses? Answer Date of Assessment Author Status No 07/30/2020 10:46 PM APARTMENT MAINTENANCE WORKER Acti ve * Do you have serious [...] st Contact Info) Description 09/25/2024 11:30 AM APARTMENT MAINTENANCE WORKER Appointment [place] [id number] [place] [address] Roberta Alex MD [address] [place] [address] 09/25/2024 11:40 AM APARTMENT MAINTENANCE WORKER Office Visit [facility] [address] [place] [address] Roberta Alex MD [address] [place] [address] documented as of this encounter Procedures Procedure Name Priority Date/Time Associated Diagnosis Comments CBC W/DIFF AUTOMATED Routine 06/09/2023 11:39 AM APARTMENT MAINTENANCE WORKER Iron deficiency anemia secondary to inadequate dietary iron intake documented in this encounter Results * (ABNORMAL) CBC W/DIFF AUTOMATED (06/09/2023 11:39 AM APARTMENT MAINTENANCE WORKER) WBC 9.99 4.00 - 10.80 x10'3/uL 06/09/2023 12:03 PM APARTMENT MAINTENANCE WORKER [facility] RBC 4.61 4.10 - 5.40 x10'6/uL 06/09/2023 12:03 PM [facility] HGB 13.4 12.0 - 16.0 G/DL 06/09/2023 12:03 PM [facility] HCT 41.6 36.0 - 47.0 % 06/09/2023 12:03 PM [facility] MCV 90.2 78.0 - 100.0 FL 06/09/2023 12:03 PM [facility] MCH 29.1 27.0 - 31.0 PG 06/09/2023 12:03 PM [facility] MCHC 32.2(L) 33.0 - 36.0 G/DL 06/09/2023 12:03 PM [facility] RDW 12.3 11.5 - 14.5 % 06/09/2023 12:03 PM [facility] PLT 39(L) 150 - 350 x10'3/uL 06/09/2023 12:03 PM [facility] MPV RESULTS NOT AVAILABLE 7.4 - 10.4 FL 06/09/2023 12:03 PM APARTMENT MAINTENANCE WORKER [facility] CBC COMMENT NORMAL REFERENCE RANGE NOT ESTABLISHED FOR THE PROPORTIONAL LEUKOCYTE DIFFERENTIAL. 06/09/2023 12:03 PM APARTMENT MAINTENANCE WORKER [facility] NEUTROPHILS % 67.1 % 06/09/2023 2:37 PM APARTMENT MAINTENANCE WORKER [facility] LYMPHOCYTES % 18.4 % 06/09/2023 2:37 PM APARTMENT MAINTENANCE WORKER [facility] MONOCYTES % 5.9 % 06/09/2023 2:37 PM APARTMENT MAINTENANCE WORKER [facility] EOSINOPHILS % 7.3 % 06/09/2023 2:37 PM APARTMENT MAINTENANCE WORKER [facility] BASOPHILS % 0.9 % 06/09/2023 2:37 PM APARTMENT MAINTENANCE WORKER [facility] IMMATURE GRANS % 0.4 % 06/09/20 2:37 PM APARTMENT MAINTENANCE WORKER [facility] NRBC 0.0 % 06/09/2023 2:37 PM APARTMENT MAINTENANCE WORKER [facility] ABS. NEUTROPHILS 6.70 1.60 - 8.30 x10'3/uL 06/09/2023 2:37 PM APARTMENT MAINTENANCE WORKER [facility] ABS. LYMPHOCYTES 1.84 0.80 - 4.70 x10'3/uL 06/09/2023 2:37 PM APARTMENT MAINTENANCE WORKER [facility] ABS. MONOCYTES 0.59 0.00 - 1.50 x10'3/uL 06/09/2023 2:37 PM APARTMENT MAINTENANCE WORKER [facility] ABS. EOSINOPHILS 0.73(H) 0.00 - 0.40 x10'3/uL 06/09/2023 2:37 PM APARTMENT MAINTENANCE WORKER [facility] ABS. BASOPHILS 0.09 0.00 - 0.20 x10'3/uL 06/09/2023 2:37 PM APARTMENT MAINTENANCE WORKER [facility] ABS. IMMATURE GRANULOCYTES 0.04(H) 0.00 - 0.03 x10'3/uL 06/09/2023 2:37 PM APARTMENT MAINTENANCE WORKER [facility] ABS. NUCLEATED RBC'S 0.00 0.00 x10'3/uL 06/09/2023 2:37 PM APARTMENT MAINTENANCE WORKER [facility] PLT MORPH. DECREASED 06/09/2023 2:37 PM APARTMENT MAINTENANCE WORKER [facility] RBC MORPHOLOGY 2+ 06/09/2023 2:37 PM APARTMENT MAINTENANCE WORKER [facility] Comment:ANISOCYTOSIS 06/09/2023 11:3 9 AM APARTMENT MAINTENANCE WORKER Roberta Alex MD LABORATORY Final Result [facility] [address] [place] [address], documented in this encounter Visit Diagnoses Diagnosis Iron deficiency anemia secondary to inadequate dietary iron intake documented in this encounter Additional Health Concerns Infection Onset Date Last Indicated Resolved Time MRSA 06/05/2021 06/05/2021 documented as of this encounter Care Teams Mold Construction Supervisor Relationship Specialty Start Date End Date Alejandro Blevins MD PCP - General FAMILY PRACTICE 12/10/19 documented as of this encounter
--- OUTSIDE RECORDS SUMMARY | 2024-07-11 05:40 | XMS_ITS | Encounter Summary ---
Author Organization [facility] Address [facility] [place] [address] [place] [address] Care Team Providers Care Roto [employer] Press Operator Name Role Phone Alejandro Blevins MD Primary Care Provider [phone] Encounter Details Date Type Department Care Team (Late st Contact Info) Description 01/03/2023 Orders Only [address] [place] [address] Roberta Alex MD [address] [place] [address] Social History Tobacco Use Types Packs/Day Years Used Date Smoking Tobacco: Every Day Cigarettes Smokeless Tobacco: Never Alcohol Use Standard Drinks/Week Comments Not Currently 0 (1 standard drink = 0.6 oz pur e alcohol) Comments No Sex and Gender Information Value Date Recorded Sex Assigned at Not on file Legal Sex Female 11:30 PM MECHANIC SENIOR Gender Identity Female 11/10/2021 3:09 PM CDT [...] Assessment Author Status No 07/30/2020 10:48 PM MECHANIC SENIOR Acti ve * RETIRED Are you blind or do you have serious difficulty seeing, even when wearing glasses? Answer Date of Assessment Author Status No 07/30/2020 10:46 PM MECHANIC SENIOR Acti ve * Do you have serious [...] Assessment Author Status No 07/30/2020 10:46 PM MECHANIC SENIOR Nella Le RN Active documented as of this encounter Mental Status * Because of a physical, mental, or emotional condition, do you have serious difficulty concentrating, remembering, or making decisions? Answer Entry Date Author Status No 07/30/2020 10:46 PM Nella Leonardo RN Active documented in this encounter Plan of Treatment Upcoming Encounters Date Type Department Care Team (Late st [facility] Info) Description 09/25/2024 11:30 AM MECHANIC SENIOR Appointment [facility] [place] [address] Roberta Alex MD [address] [place] [address] [phone] 09/25/2024 11:40 AM MECHANIC SENIOR Office Visit [facility] [place] [address] Roberta Alex MD [address] [place] [phone] documented as of this encounter Results * (ABNORMAL) CBC W/DIFF AUTOMATED (09/22/2023 1:07 PM MECHANIC SENIOR) WBC 7.48 4.00 - 10.80 x10'3/uL 09/22/2023 1:19 PM MECHANIC SENIOR [facility] RBC 4.72 4.10 - 5.40 x10'6/uL 09/22/2023 1:19 PM MECHANIC SENIOR [facility] HGB 13.6 12.0 - 16.0 G/DL 09/22/2023 1:19 PM [facility] HCT 42.1 36.0 - 47.0 % 09/22/2023 1:19 PM [facility] MCV 89.2 78.0 - 100.0 FL 09/22/2023 1:19 PM [facility] MCH 28.8 27.0 - 31.0 PG 09/22/2023 1:19 PM [facility] MCHC 32.3(L) 33.0 - 36.0 G/DL 09/22/2023 1:19 PM [facility] RDW 12.0 11.5 - 14.5 % 09/22/2023 1:19 PM [facility] PLT 31(L) 150 - 350 x10'3/uL 09/22/2023 1:19 PM [facility] MPV RESULTS NOT AVAILABLE 7.4 - 10.4 FL 09/22/2023 1:19 PM [facility] CBC COMMENT NORMAL REFERENCE RANGE NOT ESTABLISHED FOR THE PROPORTIONAL LEUKOCYTE DIFFERENTIAL. 09/22/2023 1:19 PM [facility] NEUTROPHILS % 73.2 % 09/22/2023 1:41 PM [facility] LYMPHOCYTES % 18.0 % 09/22/2023 1:41 PM [facility] MONOCYTES % 2.9 % 09/22/2023 1:41 PM [facility] EOSINOPHILS % 4.8 % 09/22/2023 1:41 PM [facility] BASOPHILS % 0.8 % 09/22/2023 1:41 PM [facility] IMMATURE GRANS % 0.3 % 09/22/19 1:41 PM MECHANIC SENIOR [facility] NRBC 0.0 % 09/22/2023 1:41 PM [facility] ABS. NEUTROPHILS 5.48 1.60 - 8.30 x10'3/uL 09/22/2023 1:41 PM [facility] ABS. LYMPHOCYTES 1.35 0.80 - 4.70 x10'3/uL 09/22/2023 1:41 PM MECHANIC SENIOR [facility] ABS. MONOCYTES 0.22 0.00 - 1.50 x10'3/uL 09/22/2023 1:41 PM MECHANIC SENIOR [facility] ABS. EOSINOPHILS 0.36 0.00 - 0.40 x10'3/uL 09/22/2023 1:41 PM MECHANIC SENIOR [facility] ABS. BASOPHILS 0.06 0.00 - 0.20 x10'3/uL 09/22/2023 1:41 PM MECHANIC SENIOR [facility] ABS. IMMATURE GRANULOCYTES 0.02 0.00 - 0.03 x10'3/uL 09/22/2023 1:41 PM MECHANIC SENIOR [facility] ABS. NUCLEATED RBC'S 0.00 0.00 x10'3/uL 09/22/2023 1:41 PM MECHANIC SENIOR [facility] PLT MORPH. DECREASED 09/22/2023 1:41 PM MECHANIC SENIOR [facility] RBC MORPHOLOGY NORMAL 09/22/2023 1:41 PM MECHANIC SENIOR [facility] 09/22/2023 1:07 PM MECHANIC SENIOR Roberta Alex MD LABORATORY Final Result [facility] [address] [place] [address], * (ABNORMAL) CBC W/DIFF AUTOMATED (09/07/2023 2:42 PM MECHANIC SENIOR) WBC 7.40 4.00 - 10.80 x10'3/uL 09/07/2023 3:53 PM MECHANIC SENIOR [facility] RBC 5.16 4.10 - 5.40 x10'6/uL 09/07/2023 3:53 PM MECHANIC SENIOR [facility] HGB 14.8 12.0 - 16.0 G/DL 09/07/2023 3:53 PM MECHANIC SENIOR [facility] HCT 46.1 36.0 - 47.0 % 09/07/2023 3:53 PM MECHANIC SENIOR [facility] MCV 89.3 78.0 - 100.0 FL 09/07/2023 3:53 PM [facility] MCH 28.7 27.0 - 31.0 PG 09/07/2023 3:53 PM [facility] MCHC 32.1(L) 33.0 - 36.0 G/DL 09/07/2023 3:53 PM [facility] RDW 12.3 11.5 - 14.5 % 09/07/2023 3:53 PM [facility] PLT 36(L) 150 - 350 x10'3/uL 09/07/2023 3:53 PM [facility] MPV RESULTS NOT AVAILABLE 7.4 - 10.4 FL 09/07/2023 3:53 PM [facility] CBC COMMENT NORMAL REFERENCE RANGE NOT ESTABLISHED FOR THE PROPORTIONAL LEUKOCYTE DIFFERENTIAL. 09/07/2023 3:53 PM [facility] NEUTROPHILS % 70.6 % 09/07/2023 5:06 PM [facility] LYMPHOCYTES % 19.6 % 09/07/2023 5:06 PM [facility] MONOCYTES % 3.9 % 09/07/2023 5:06 PM [facility] EOSINOPHILS % 4.6 % 09/07/2023 5:06 PM [facility] BASOPHILS % 0.9 % 09/07/2023 5:06 PM [facility] IMMATURE GRANS % 0.4 % 09/07/19 5:06 PM [facility] NRBC 0.0 % 09/07/2023 5:06 PM [facility] ABS. NEUTROPHILS 5.22 1.60 - 8.30 x10'3/uL 09/07/2023 5:06 PM [facility] ABS. LYMPHOCYTES 1.45 0.80 - 4.70 x10'3/uL 09/07/2023 5:06 PM [facility] ABS. MONOCYTES 0.29 0.00 - 1.50 x10'3/uL 09/07/2023 5:06 PM [facility] ABS. EOSINOPHILS 0.34 0.00 - 0.40 x10'3/uL 09/07/2023 5:06 PM MECHANIC SENIOR [facility] ABS. BASOPHILS 0.07 0.00 - 0.20 x10'3/uL 09/07/2023 5:06 PM MECHANIC SENIOR [facility] ABS. IMMATURE GRANULOCYTES 0.03 0.00 - 0.03 x10'3/uL 09/07/2023 5:06 PM [facility] ABS. NUCLEATED RBC'S 0.00 0.00 x10'3/uL 09/07/2023 5:06 PM [facility] PLT MORPH. DECREASED 09/07/2023 5:06 PM [facility] RBC MORPHOLOGY NORMAL 09/07/2023 5:06 PM [facility] 09/07/2023 2:42 PM MECHANIC SENIOR Roberta Alex MD LABORATORY Final Result [facility] [address] [place] [address], * (ABNORMAL) CBC W/DIFF AUTOMATED (06/28/2023 10:08 AM MECHANIC SENIOR) WBC 10.42 4.00 - 10.80 x10'3/uL 06/28/2023 10:35 AM [facility] RBC 4.53 4.10 - 5.40 x10'6/uL 06/28/2023 10:35 AM [facility] HGB 13.2 12.0 - 16.0 G/DL 06/28/2023 10:35 AM [facility] HCT 41.1 36.0 - 47.0 % 06/28/2023 10:35 AM [facility] MCV 90.7 78.0 - 100.0 FL 06/28/2023 10:35 AM [facility] MCH 29.1 27.0 - 31.0 PG 06/28/2023 10:35 AM [facility] MCHC 32.1(L) 33.0 - 36.0 G/DL 06/28/2023 10:35 AM [facility] RDW 12.7 11.5 - 14.5 % 06/28/2023 10:35 AM [facility] PLT 39(L) 150 - 350 x10'3/uL 06/28/2023 10:35 AM [facility] MPV RESULTS NOT AVAILABLE 7.4 - 10.4 FL 06/28/2023 10:35 AM [facility] CBC COMMENT NORMAL REFERENCE RANGE NOT ESTABLISHED FOR THE PROPORTIONAL LEUKOCYTE DIFFERENTIAL. 06/28/2023 10:35 AM [facility] NEUTROPHILS % 66.4 % 06/28/2023 10:58 AM [facility] LYMPHOCYTES % 16.6 % 06/28/2023 10:58 AM [facility] MONOCYTES % 5.7 % 06/28/2023 10:58 AM [facility] EOSINOPHILS % 9.7 % 06/28/2023 10:58 AM [facility] BASOPHILS % 1.2 % 06/28/2023 10:58 AM [facility] IMMATURE GRANS % 0.4 % 06/28/20 10:58 AM [facility] NRBC 0.0 % 06/28/2023 10:58 AM [facility] ABS. NEUTROPHILS 6.92 1.60 - 8.30 x10'3/uL 06/28/2023 10:58 AM [facility] ABS. LYMPHOCYTES 1.73 0.80 - 4.70 x10'3/uL 06/28/2023 10:58 AM [facility] ABS. MONOCYTES 0.59 0.00 - 1.50 x10'3/uL 06/28/2023 10:58 AM [facility] ABS. EOSINOPHILS 1.01(H) 0.00 - 0.40 x10'3/uL 06/28/2023 10:58 AM [facility] ABS. BASOPHILS 0.13 0.00 - 0.20 x10'3/uL 06/28/2023 10:58 AM MECHANIC SENIOR [facility] ABS. IMMATURE GRANULOCYTES 0.04(H) 0.00 - 0.03 x10'3/uL 06/28/2023 10:58 AM MECHANIC SENIOR [facility] ABS. NUCLEATED RBC'S 0.00 0.00 x10'3/uL 06/28/2023 10:58 AM MECHANIC SENIOR [facility] PLT MORPH. DECREASED 06/28/2023 10:58 AM MECHANIC SENIOR [facility] Comment:1+ LARGE PLATELETS S EEN RBC MORPHOLOGY NORMAL 06/28/2023 10:58 AM MECHANIC SENIOR [facility] 06/28/2023 10:0 8 AM MECHANIC SENIOR us Roberta Alex MD LABORATORY Final Result [facility] [address] [place] [address], * (ABNORMAL) CBC W/DIFF AUTOMATED (03/24/2023 2:22 PM CDT) WBC 8.77 4.00 - 10.80 x10'3/uL 04/08/2023 12:01 PM CDT [facility] Comment:SPECIMEN PROCESSED D URING DOWNTIME RBC 4.60 4.10 - 5.40 x10'6/uL 04/08/2023 12:01 PM CDT [facility] HGB 13.9 12.0 - 16.0 G/DL 04/08/2023 12:01 PM CDT [facility] HCT 42.4 36.0 - 47.0 % 04/08/2023 12:01 PM CDT [facility] MCV 92.2 78.0 - 100.0 FL 04/08/2023 12:01 PM CDT [facility] MCH 30.2 27.0 - 31.0 PG 04/08/2023 12:01 PM CDT [facility] MCHC 32.8(L) 33.0 - 36.0 G/DL 04/08/2023 12:01 PM CDT [facility] RDW 12.3 11.5 - 14.5 % 04/08/2023 12:01 PM CDT [facility] PLT 41(L) 150 - 350 x10'3/uL 04/08/2023 12:01 PM CDT [facility] MPV RESULTS NOT AVAILABLE 7.4 - 10.4 FL 04/08/2023 12:01 PM CDT [facility] CBC COMMENT NORMAL REFERENCE RANGE NOT ESTABLISHED FOR THE PROPORTIONAL LEUKOCYTE DIFFERENTIAL. 04/08/2023 12:01 PM CDT [facility] NEUTROPHILS % 69.3 % 04/08/2023 12:03 PM CDT [facility] LYMPHOCYTES % 18.7 % 04/08/2023 12:03 PM CDT [facility] MONOCYTES % 5.5 % 04/08/2023 12:03 PM CDT [facility] EOSINOPHILS % 5.7 % 04/08/2023 12:03 PM CDT [facility] BASOPHILS % 0.7 % 04/08/2023 12:03 PM CDT [facility] IMMATURE GRANS % 0.1 % 04/08/20 12:03 PM CDT [facility] NRBC 0.0 % 04/08/2023 12:03 PM CDT [facility] ABS. NEUTROPHILS 6.08 1.60 - 8.30 x10'3/uL 04/08/2023 12:03 PM CDT [facility] ABS. LYMPHOCYTES 1.64 0.80 - 4.70 x10'3/uL 04/08/2023 12:03 PM CDT [facility] ABS. MONOCYTES 0.48 0.00 - 1.50 x10'3/uL 04/08/2023 12:03 PM CDT [facility] ABS. EOSINOPHILS 0.50(H) 0.00 - 0.40 x10'3/uL 04/08/2023 12:03 PM CDT [facility] ABS. BASOPHILS 0.06 0.00 - 0.20 x10'3/uL 04/08/2023 12:03 PM CDT [facility] ABS. IMMATURE GRANULOCYTES 0.01 0.00 - 0.03 x10'3/uL 04/08/2023 12:03 PM CDT [facility] ABS. NUCLEATED RBC'S 0.00 0.00 x10'3/uL 04/08/2023 12:03 PM CDT [facility] PLT MORPH. DECREASED 04/08/2023 12:03 PM CDT [facility] RBC MORPHOLOGY NORMAL 04/08/2023 12:03 PM CDT [facility] 03/24/2023 2:22 PM CDT Roberta Alex MD LABORATORY Final Result [facility] [id number] [place] [address], * (ABNORMAL) CBC W/DIFF AUTOMATED (01/20/2023 1:53 PM CDT) WBC 13.84(H) 4.00 - 10.80 x10'3/uL 01/20/2023 1:59 PM CDT [facility] RBC 4.70 4.10 - 5.40 x10'6/uL 01/20/2023 1:59 PM CDT [facility] HGB 13.7 12.0 - 16.0 G/DL 01/20/2023 1:59 PM CDT [facility] HCT 42.6 36.0 - 47.0 % 01/20/2023 1:59 PM CDT [facility] MCV 90.6 78.0 - 100.0 FL 01/20/2023 1:59 PM CDT [facility] MCH 29.1 27.0 - 31.0 PG 01/20/2023 1:59 PM CDT [facility] MCHC 32.2(L) 33.0 - 36.0 G/DL 01/20/2023 1:59 PM CDT [facility] RDW 12.5 11.5 - 14.5 % 01/20/2023 1:59 PM CDT [facility] PLT 254 150 - 350 x10'3/uL 01/20/2023 1:59 PM CDT [facility] MPV 12.7(H) 7.4 - 10.4 FL 01/20/2023 1:59 PM CDT [facility] CBC COMMENT NORMAL REFERENCE RANGE NOT ESTABLISHED FOR THE PROPORTIONAL LEUKOCYTE DIFFERENTIAL. 01/20/2023 1:59 PM CDT [facility] NEUTROPHILS % 79.4 % 01/20/2023 1:59 PM CDT [facility] LYMPHOCYTES % 12.6 % 01/20/2023 1:59 PM CDT [facility] MONOCYTES % 3.8 % 01/20/2023 1:59 PM CDT [facility] EOSINOPHILS % 3.2 % 01/20/2023 1:59 PM CDT [facility] BASOPHILS % 0.7 % 01/20/2023 1:59 PM CDT [facility] IMMATURE GRANS % 0.3 % 01/21/20 1:59 PM CDT [facility] NRBC 0.0 % 01/20/2023 1:59 PM CDT [facility] ABS. NEUTROPHILS 11.00(H) 1.60 - 8.30 x10'3/uL 01/20/2023 1:59 PM CDT [facility] ABS. LYMPHOCYTES 1.74 0.80 - 4.70 x10'3/uL 01/20/2023 1:59 PM CDT [facility] ABS. MONOCYTES 0.53 0.00 - 1.50 x10'3/uL 01/20/2023 1:59 PM CDT [facility] ABS. EOSINOPHILS 0.44(H) 0.00 - 0.40 x10'3/uL 01/20/2023 1:59 PM CDT [facility] ABS. BASOPHILS 0.09 0.00 - 0.20 x10'3/uL 01/20/2023 1:59 PM CDT [facility] ABS. IMMATURE GRANULOCYTES 0.04(H) 0.00 - 0.03 x10'3/uL 01/20/2023 1:59 PM CDT [facility] ABS. NUCLEATED RBC'S 0.00 0.00 x10'3/uL 01/20/2023 1:59 PM CDT [facility] 01/20/2023 1:53 PM CDT Roberta lAex MD LABORATORY Final Result [facility] [address] [place] [address], * (ABNORMAL) CBC W/DIFF AUTOMATED (01/10/2023 12:39 PM CDT) WBC 9.36 4.00 - 10.80 x10'3/uL 01/10/2023 12:47 PM CDT [facility] RBC 4.88 4.10 - 5.40 x10'6/uL 01/10/2023 12:47 PM CDT [facility] HGB 14.2 12.0 - 16.0 G/DL 01/10/2023 12:47 PM CDT [facility] HCT 43.8 36.0 - 47.0 % 01/10/2023 12:47 PM CDT [facility] MCV 89.8 78.0 - 100.0 FL 01/10/2023 12:47 PM CDT [facility] MCH 29.1 27.0 - 31.0 PG 01/10/2023 12:47 PM CDT [facility] MCHC 32.4(L) 33.0 - 36.0 G/DL 01/10/2023 12:47 PM CDT [facility] RDW 12.7 11.5 - 14.5 % 01/10/2023 12:47 PM CDT [facility] PLT 146(L) 150 - 350 x10'3/uL 01/10/2023 12:47 PM CDT [facility] MPV 13.6(H) 7.4 - 10.4 FL 01/10/2023 12:47 PM CDT [facility] CBC COMMENT NORMAL REFERENCE RANGE NOT ESTABLISHED FOR THE PROPORTIONAL LEUKOCYTE DIFFERENTIAL. 01/10/2023 12:47 PM CDT [facility] NEUTROPHILS % 65.3 % 01/10/2023 12:47 PM CDT [facility] LYMPHOCYTES % 20.9 % 01/10/2023 12:47 PM CDT [facility] MONOCYTES % 6.5 % 01/10/2023 12:47 PM CDT [facility] EOSINOPHILS % 6.3 % 01/10/2023 12:47 PM CDT [facility] BASOPHILS % 0.7 % 01/10/2023 12:47 PM CDT [facility] IMMATURE GRANS % 0.3 % 01/11/20 12:47 PM CDT [facility] NRBC 0.0 % 01/10/2023 12:47 PM CDT [facility] ABS. NEUTROPHILS 6.10 1.60 - 8.30 x10'3/uL 01/10/2023 12:47 PM CDT [facility] ABS. LYMPHOCYTES 1.96 0.80 - 4.70 x10'3/uL 01/10/2023 12:47 PM CDT [facility] ABS. MONOCYTES 0.61 0.00 - 1.50 x10'3/uL 01/10/2023 12:47 PM CDT [facility] ABS. EOSINOPHILS 0.59(H) 0.00 - 0.40 x10'3/uL 01/10/2023 12:47 PM CDT [facility] ABS. BASOPHILS 0.07 0.00 - 0.20 x10'3/uL 01/10/2023 12:47 PM CDT [facility] ABS. IMMATURE GRANULOCYTES 0.03 0.00 - 0.03 x10'3/uL 01/10/2023 12:47 PM CDT [facility] ABS. 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
--- OUTSIDE RECORDS SUMMARY | 2024-07-11 05:40 | XMS_ITS | Encounter Summary ---
Author Organization [facility] Address [facility]ly [facility] [place] [address] [place] [address] Care Team Providers Care Accounts Receivable Assistant Name Role Phone Alejandro Blevins MD Primary Care Provider [phone] Encounter Details Date Type Department Care Team (Late st Contact Info) Description 04/05/2023 Orders Only [address] [place] [address] Roberta Alex MD [address] [place] [address] Social History Tobacco Use Types Packs/Day Years Used Date Smoking Tobacco: Every Day Cigarettes Smokeless Tobacco: Never Alcohol Use Standard Drinks/Week Comments Not Currently 0 (1 standard drink = 0.6 oz pur e alcohol) Comments No Sex and Gender Information Value Date Recorded Sex Assigned at Not on file Legal Sex Female 11:30 PM EDUCATION RN Gender Identity Female 11/10/2021 3:09 PM CDT Sexual Orientation Straight 11/10/2021 3: 09 PM CDT documented as of this encounter Functional Status * RETIRED Are you deaf or do you have serious difficulty hearing Answer Date of Assessment Author Status No 07/30/2020 10:48 PM EDUCATION RN Acti ve * RETIRED Are you blind or do you have serious difficulty seeing, even when wearing glasses? Answer Date of Assessment Author Status No 07/30/2020 10:46 PM EDUCATION RN Acti ve * Do you have serious difficulty walking or climbing stairs? Answer Date of Assessment Author Status No 07/30/2020 10:46 PM EDUCATION RN Bringuet, Nella C, RN Active * Do you have difficulty dressing or bathing? Answer Date of Assessment Author Status No 07/30/2020 10:46 PM EDUCATION RN Nella Le RN Active * Because of [...] st Contact Info) Description 09/25/2024 11:30 AM EDUCATION RN Appointment [facility] [address] [place] [address] Roberta Alex MD [address] [place] [id number] 09/25/2024 11:40 AM EDUCATION RN Office Visit [facility] [address] [place] [address] Roberta Alex MD [address] [place] [id number] documented as of this encounter Visit Diagnoses Diagnosis Chronic ITP (idiopathic thrombocytopenia) ([facility])- Primary Immune thrombocytopenic purpura documented in this encounter Additional Health Concerns Infection Onset Date Last Indicated Resolved Time MRSA 06/05/2021 06/05/2021 documented as of this encounter Care Teams Accounts Receivable Assistant Relationship Specialty Start Date End Date Alejandro Blevins MD PCP - General FAMILY PRACTICE 12/10/19 documented as of this encounter
--- OUTSIDE RECORDS SUMMARY | 2024-07-11 05:40 | XMS_ITS | Encounter Summary ---
Author Organization [facility] Address [facility] [address] [place] [address] Care Team Providers Care Swabber Name Role Phone Alejandro Blevins MD Primary Care Provider [phone] Encounter Details Date Type Department Care Team (Late st Contact Info) Description 05/26/2023 Orders Only [address] [place] [address] Roberta Alex MD [address] [place] [address] Social History Tobacco Use Types Packs/Day Years Used Date Smoking Tobacco: Every Day Cigarettes Smokeless Tobacco: Never Alcohol Use Standard Drinks/Week Comments Not Currently 0 (1 standard drink = 0.6 oz pur e alcohol) Comments No Sex and Gender Information Value Date Recorded Sex Assigned at Not on file Legal Sex Female 11:30 PM PST SUPERVISOR Gender Identity Female 11/10/2021 3:09 PM CDT Sexual Orientation Straight 11/10/2021 3: 09 PM CDT documented as of this encounter Functional Status * RETIRED Are you deaf or do you have serious difficulty hearing Answer Date of Assessment Author Status No 07/30/2020 10:48 PM PST SUPERVISOR Acti ve * RETIRED Are you blind or do you have serious difficulty seeing, even when wearing glasses? Answer Date of Assessment Author Status No 07/30/2020 10:46 PM PST SUPERVISOR Acti ve * Do you have serious difficulty walking or climbing stairs? Answer Date of Assessment Author Status No 07/30/2020 10:46 PM PST SUPERVISOR Bringuet, Nella C, RN Active * Do you have difficulty dressing or bathing? Answer Date of Assessment Author Status No 07/30/2020 10:46 PM PST SUPERVISOR Nella Le RN Active * Because [...] st Contact Info) Description 09/25/2024 11:30 AM PST SUPERVISOR Appointment [facility] [address] [place] [address] Roberta Alex MD [address] [place] [address] 09/25/2024 11:40 AM PST SUPERVISOR Office Visit [facility] [address] [place] [address] Roberta Alex MD [address] [place] [address] documented as of this encounter Results * (ABNORMAL) CBC W/DIFF AUTOMATED (06/23/2023 11:33 AM PST SUPERVISOR) WBC 16.97(H) 4.00 - 10.80 x10'3/uL 06/23/2023 11:45 AM PST SUPERVISOR [facility] RBC 4.74 4.10 - 5.40 x10'6/uL 06/23/2023 11:45 AM PST SUPERVISOR [facility] HGB 13.8 12.0 - 16.0 G/DL 06/23/2023 11:45 AM PST SUPERVISOR [facility] HCT 42.5 36.0 - 47.0 % 06/23/2023 11:45 AM [facility] MCV 89.7 78.0 - 100.0 FL 06/23/2023 11:45 AM [facility] MCH 29.1 27.0 - 31.0 PG 06/23/2023 11:45 AM [facility] MCHC 32.5(L) 33.0 - 36.0 G/DL 06/23/2023 11:45 AM [facility] RDW 12.6 11.5 - 14.5 % 06/23/2023 11:45 AM [facility] PLT 48(L) 150 - 350 x10'3/uL 06/23/2023 11:45 AM [facility] MPV RESULTS NOT AVAILABLE 7.4 - 10.4 FL 06/23/2023 11:45 AM [facility] CBC COMMENT NORMAL REFERENCE RANGE NOT ESTABLISHED FOR THE PROPORTIONAL LEUKOCYTE DIFFERENTIAL. 06/23/2023 11:45 AM [facility] NEUTROPHILS % 73.5 % 06/23/2023 12:34 PM [facility] LYMPHOCYTES % 14.7 % 06/23/2023 12:34 PM [facility] MONOCYTES % 5.0 % 06/23/2023 12:34 PM [facility] EOSINOPHILS % 5.8 % 06/23/2023 12:34 PM [facility] BASOPHILS % 0.6 % 06/23/2023 12:34 PM [facility] IMMATURE GRANS % 0.4 % 06/23/20 23 12:34 PM [facility] NRBC 0.0 % 06/23/2023 12:34 PM [facility] ABS. NEUTROPHILS 12.48(H) 1.60 - 8.30 x10'3/uL 06/23/2023 12:34 PM [facility] ABS. LYMPHOCYTES 2.49 0.80 - 4.70 x10'3/uL 06/23/2023 12:34 PM [facility] ABS. MONOCYTES 0.85 0.00 - 1.50 x10'3/uL 06/23/2023 12:34 PM PST SUPERVISOR [facility] ABS. EOSINOPHILS 0.98(H) 0.00 - 0.40 x10'3/uL 06/23/2023 12:34 PM PST SUPERVISOR [facility] ABS. BASOPHILS 0.10 0.00 - 0.20 x10'3/uL 06/23/2023 12:34 PM PST SUPERVISOR [facility] ABS. IMMATURE GRANULOCYTES 0.07(H) 0.00 - 0.03 x10'3/uL 06/23/2023 12:34 PM PST SUPERVISOR [facility] ABS. NUCLEATED RBC'S 0.00 0.00 x10'3/uL 06/23/2023 12:34 PM [facility] PLT MORPH. DECREASED 06/23/2023 12:34 PM [facility] RBC MORPHOLOGY NORMAL 06/23/2023 12:34 PM [facility] 06/23/2023 11:3 3 AM PST SUPERVISOR Roberta Alex MD LABORATORY Final Result [facility] [address] [place] [address], * (ABNORMAL) CBC W/DIFF AUTOMATED (06/09/2023 11:39 AM PST SUPERVISOR) WBC 9.99 4.00 - 10.80 x10'3/uL 06/09/2023 12:03 PM [facility] RBC 4.61 4.10 - 5.40 x10'6/uL 06/09/2023 12:03 PM [facility] HGB 13.4 12.0 - 16.0 G/DL 06/09/2023 12:03 PM [facility] HCT 41.6 36.0 - 47.0 % 06/09/2023 12:03 PM [facility] MCV 90.2 78.0 - 100.0 FL 06/09/2023 12:03 PM [facility] MCH 29.1 27.0 - 31.0 PG 06/09/2023 12:03 PM [facility] MCHC 32.2(L) 33.0 - 36.0 G/DL 06/09/2023 12:03 PM PST SUPERVISOR [facility] RDW 12.3 11.5 - 14.5 % 06/09/2023 12:03 PM [facility] PLT 39(L) 150 - 350 x10'3/uL 06/09/2023 12:03 PM [facility] MPV RESULTS NOT AVAILABLE 7.4 - 10.4 FL 06/09/2023 12:03 PM [facility] CBC COMMENT NORMAL REFERENCE RANGE NOT ESTABLISHED FOR THE PROPORTIONAL LEUKOCYTE DIFFERENTIAL. 06/09/2023 12:03 PM PST SUPERVISOR [facility] NEUTROPHILS % 67.1 % 06/09/2023 2:37 PM PST SUPERVISOR [facility] LYMPHOCYTES % 18.4 % 06/09/2023 2:37 PM PST SUPERVISOR [facility] MONOCYTES % 5.9 % 06/09/2023 2:37 PM PST SUPERVISOR [facility] EOSINOPHILS % 7.3 % 06/09/2023 2:37 PM PST SUPERVISOR [facility] BASOPHILS % 0.9 % 06/09/2023 2:37 PM PST SUPERVISOR [facility] IMMATURE GRANS % 0.4 % 06/09/20 2:37 PM PST SUPERVISOR [facility] NRBC 0.0 % 06/09/2023 2:37 PM PST SUPERVISOR [facility] ABS. NEUTROPHILS 6.70 1.60 - 8.30 x10'3/uL 06/09/2023 2:37 PM PST SUPERVISOR [facility] ABS. LYMPHOCYTES 1.84 0.80 - 4.70 x10'3/uL 06/09/2023 2:37 PM PST SUPERVISOR [facility] ABS. MONOCYTES 0.59 0.00 - 1.50 x10'3/uL 06/09/2023 2:37 PM [facility] ABS. EOSINOPHILS 0.73(H) 0.00 - 0.40 x10'3/uL 06/09/2023 2:37 PM PST SUPERVISOR [facility] ABS. BASOPHILS 0.09 0.00 - 0.20 x10'3/uL 06/09/2023 2:37 PM PST SUPERVISOR [facility] ABS. IMMATURE GRANULOCYTES 0.04(H) 0.00 - 0.03 x10'3/uL 06/09/2023 2:37 PM PST SUPERVISOR [facility] ABS. NUCLEATED RBC'S 0.00 0.00 x10'3/uL 06/09/2023 2:37 PM PST SUPERVISOR [facility] PLT MORPH. DECREASED 06/09/2023 2:37 PM PST SUPERVISOR [facility] RBC MORPHOLOGY 2+ 06/09/2023 2:37 PM PST SUPERVISOR [facility] Comment:ANISOCYTOSIS 06/09/2023 11:3 9 AM PST SUPERVISOR Roberta Alex MD LABORATORY Final Result [facility] [address] [place] [address], * (ABNORMAL) CBC W/DIFF AUTOMATED (06/02/2023 11:45 AM PST SUPERVISOR) WBC 11.18(H) 4.00 - 10.80 x10'3/uL 06/02/2023 12:13 PM PST SUPERVISOR [facility] RBC 4.54 4.10 - 5.40 x10'6/uL 06/02/2023 12:13 PM [facility] HGB 13.1 12.0 - 16.0 G/DL 06/02/2023 12:13 PM PST SUPERVISOR [facility] HCT 41.1 36.0 - 47.0 % 06/02/2023 12:13 PM [facility] MCV 90.5 78.0 - 100.0 FL 06/02/2023 12:13 PM [facility] MCH 28.9 27.0 - 31.0 PG 06/02/2023 12:13 PM [facility] MCHC 31.9(L) 33.0 - 36.0 G/DL 06/02/2023 12:13 PM [facility] RDW 12.1 11.5 - 14.5 % 06/02/2023 12:13 PM [facility] PLT 51(L) 150 - 350 x10'3/uL 06/02/2023 12:13 PM [facility] MPV RESULTS NOT AVAILABLE 7.4 - 10.4 FL 06/02/2023 12:13 PM [facility] CBC COMMENT NORMAL REFERENCE RANGE NOT ESTABLISHED FOR THE PROPORTIONAL LEUKOCYTE DIFFERENTIAL. 06/02/2023 12:13 PM [facility] NEUTROPHILS % 68.0 % 06/02/2023 12:46 PM [facility] LYMPHOCYTES % 18.5 % 06/02/2023 12:46 PM [facility] MONOCYTES % 5.4 % 06/02/2023 12:46 PM [facility] EOSINOPHILS % 6.6 % 06/02/2023 12:46 PM [facility] BASOPHILS % 1.1 % 06/02/2023 12:46 PM [facility] IMMATURE GRANS % 0.4 % 06/02/20 12:46 PM [facility] NRBC 0.0 % 06/02/2023 12:46 PM [facility] ABS. NEUTROPHILS 7.61 1.60 - 8.30 x10'3/uL 06/02/2023 12:46 PM [facility] ABS. LYMPHOCYTES 2.07 0.80 - 4.70 x10'3/uL 06/02/2023 12:46 PM [facility] ABS. MONOCYTES 0.60 0.00 - 1.50 x10'3/uL 06/02/2023 12:46 PM [facility] ABS. EOSINOPHILS 0.74(H) 0.00 - 0.40 x10'3/uL 06/02/2023 12:46 PM [facility] ABS. BASOPHILS 0.12 0.00 - 0.20 x10'3/uL 06/02/2023 12:46 PM [facility] ABS. IMMATURE GRANULOCYTES 0.04(H) 0.00 - 0.03 x10'3/uL 06/02/2023 12:46 PM PST SUPERVISOR [facility] ABS. NUCLEATED RBC'S 0.00 0.00 x10'3/uL 06/02/2023 12:46 PM PST SUPERVISOR [facility] PLT MORPH. DECREASED 06/02/2023 12:46 PM PST SUPERVISOR [facility] RBC MORPHOLOGY NORMAL 06/02/2023 12:46 PM PST SUPERVISOR [facility] 06/02/2023 11:4 5 AM PST SUPERVISOR Roberta Alex MD LABORATORY Final Result [facility] [address] [place] [address], documented in this encounter Visit Diagnoses Diagnosis Iron deficiency anemia secondary to inadequate dietary iron intake- Primary documented in this encounter Additional Health Concerns Infection Onset Date Last Indicated Resolved Time MRSA 06/05/2021 06/05/2021 documented as of this encounter Care Teams Swabber Relationship Specialty Start Date End Date Alejandro Blevins MD PCP - General FAMILY PRACTICE 12/10/19 documented as of this encounter
--- OUTSIDE RECORDS SUMMARY | 2024-07-11 05:40 | XMS_ITS | Encounter Summary ---
Author Organization [facility] Address [address] [place] [address]. [place], [place] [address] [place] [address] Care Team Providers Care Clinical Nurse Specialist Name Role Phone Alejandro Blevins MD Primary Care Provider [phone] Encounter Details Date Type Department Care Team (Latest Contact Info) Description 06/02/2023 Travel Social History Tobacco Use Types Packs/Day Years Used Date Smoking Tobacco: Every Day Cigarettes Smokeless Tobacco: Never Alcohol Use Standard Drinks/Week Comments Not Currently 0 (1 standard drink = 0.6 oz pur e alcohol) Comments No Sex and Gender Information Value Date Recorded Sex Assigned at Not on file Legal Sex Female 11:30 PM NURSE SPECIAL Gender Identity Female 11/10/2021 3:09 PM CDT Sexual Orientation Straight 11/10/2021 3: 09 PM CDT documented as of this encounter Functional Status * RETIRED Are you deaf or do you have serious difficulty hearing Answer Date of Assessment Author Status No 07/30/2020 10:48 PM NURSE SPECIAL Acti ve * RETIRED Are you blind or do you have serious difficulty seeing, even when wearing glasses? Answer Date of Assessment Author Status No 07/30/2020 10:46 PM NURSE SPECIAL Acti ve * Do you have serious difficulty walking or climbing stairs? Answer Date of Assessment Author Status No 07/30/2020 10:46 PM NURSE SPECIAL Nella Le RN Active * Do you have difficulty dressing or bathing? Answer Date of Assessment Author Status No 07/30/2020 10:46 PM NURSE SPECIAL Nella Le RN Active * Because of a physical, mental, or emotional condition, do you have difficulty doing errands alone such as visiting a doctor's office or shopping? Answer Date of Assessment Author Status No 07/30/2020 10:46 PM NURSE SPECIAL Nella Le RN Active documented as of this encounter Mental Status * Because of a physical, mental, or emotional condition, do you have serious difficulty concentrating, remembering, or making decisions? Answer Entry Date Author Status No 07/30/2020 10:46 PM NURSE SPECIAL Nella Le RN Active documented in this encounter Plan of Treatment Upcoming Encounters Date Type Department Care Team (Late st Contact Info) Description 09/25/2024 11:30 AM NURSE SPECIAL Appointment [facility] [address] [facility] [place] [address] Roberta Alex MD [address] [place] [address] 09/25/2024 11:40 AM NURSE SPECIAL Office Visit [facility] [address] [facility] [place] [address] Roberta Alex MD [address] [place] [address] documented as of this encounter Visit Diagnoses Not on filedocumented in this encounter Additional Health Concerns Infection Onset Date Last Indicated Resolved Time MRSA 06/05/2021 06/05/2021 documented as of this encounter Care Teams Clinical Nurse Specialist Relationship Specialty Start Date End Date Alejandro Blevins MD PCP - General FAMILY PRACTICE 12/10/19 documented as of this encounter
--- OUTSIDE RECORDS SUMMARY | 2024-07-11 05:40 | XMS_ITS | Encounter Summary ---
Author Organization [facility] Address [address] [place] [address]. [place] [address] [place] [address] Care Team Providers Care Electrician Underground Name Role Phone Alejandro Blevins MD Primary Care Provider [phone] Encounter Details Date Type Department Care Team (Latest Contact Info) Description 06/28/2023 9:30 AM CUSTOMER SERVICE PROFESSIONAL - 06/28/2023 11:59 PM CUSTOMER SERVICE PROFESSIONAL Hospital Encounter [address] [place] [address] Roberta Alex MD [address] [place] [address] Discharge Disposition: Home or Self Care (Routine Discharge) Social History Tobacco Use Types Packs/Day Years Used Date Smoking Tobacco: Every Day Cigarettes Smokeless Tobacco: Never Alcohol Use Standard Drinks/Week Comments Not Currently 0 (1 standard drink = 0.6 oz pur e alcohol) Comments No Sex and Gender Information Value Date Recorded Sex Assigned at Not on file Legal Sex Female 11:30 PM CUSTOMER SERVICE PROFESSIONAL Gender Identity Female 11/10/2021 3:09 PM CDT Sexual Orientation Straight 11/10/2021 3: 09 PM CDT documented as of this encounter Functional Status * RETIRED Are you deaf or do you have serious difficulty hearing Answer Date of Assessment Author Status No 07/30/2020 10:48 PM CUSTOMER SERVICE PROFESSIONAL Acti ve * RETIRED Are you blind or do you have serious difficulty seeing, even when wearing glasses? Answer Date of Assessment Author Status No 07/30/2020 10:46 PM CUSTOMER SERVICE PROFESSIONAL Acti ve * Do you have serious [...] st Contact Info) Description 09/25/2024 11:30 AM CUSTOMER SERVICE PROFESSIONAL Appointment [facility] [place] [address] Roberta Alex MD [address] [place] [address] 09/25/2024 11:40 AM CUSTOMER SERVICE PROFESSIONAL Office Visit [facility] [place] [address] Roberta Alex MD [address] [place] [address] documented as of this encounter Procedures Procedure Name Priority Date/Time Associated Diagnosis Comments CBC W/DIFF AUTOMATED Routine 06/28/2023 10:08 AM CUSTOMER SERVICE PROFESSIONAL Acute ITP (CMS/HCC HHS/HCC) documented in this encounter Results * (ABNORMAL) CBC W/DIFF AUTOMATED (06/28/2023 10:08 AM CUSTOMER SERVICE PROFESSIONAL) WBC 10.42 4.00 - 10.80 x10'3/uL 06/28/2023 10:35 AM CUSTOMER SERVICE PROFESSIONAL [facility] RBC 4.53 4.10 - 5.40 x10'6/uL 06/28/2023 10:35 AM [facility] HGB 13.2 12.0 - 16.0 G/DL 06/28/2023 10:35 AM [facility] HCT 41.1 36.0 - 47.0 % 06/28/2023 10:35 AM CUSTOMER SERVICE PROFESSIONAL [facility] MCV 90.7 78.0 - 100.0 FL 06/28/2023 10:35 AM CUSTOMER SERVICE PROFESSIONAL [facility] MCH 29.1 27.0 - 31.0 PG 06/28/2023 10:35 AM [facility] MCHC 32.1(L) 33.0 - 36.0 G/DL 06/28/2023 10:35 AM [facility] RDW 12.7 11.5 - 14.5 % 06/28/2023 10:35 AM [facility] PLT 39(L) 150 - 350 x10'3/uL 06/28/2023 10:35 AM [facility] MPV RESULTS NOT AVAILABLE 7.4 - 10.4 FL 06/28/2023 10:35 AM [facility] CBC COMMENT NORMAL REFERENCE RANGE NOT ESTABLISHED FOR THE PROPORTIONAL LEUKOCYTE DIFFERENTIAL. 06/28/2023 10:35 AM [facility] NEUTROPHILS % 66.4 % 06/28/2023 10:58 AM [facility] LYMPHOCYTES % 16.6 % 06/28/2023 10:58 AM [facility] MONOCYTES % 5.7 % 06/28/2023 10:58 AM [facility] EOSINOPHILS % 9.7 % 06/28/2023 10:58 AM [facility] BASOPHILS % 1.2 % 06/28/2023 10:58 AM [facility] IMMATURE GRANS % 0.4 % 06/28/20 10:58 AM [facility] NRBC 0.0 % 06/28/2023 10:58 AM [facility] ABS. NEUTROPHILS 6.92 1.60 - 8.30 x10'3/uL 06/28/2023 10:58 AM [facility] ABS. LYMPHOCYTES 1.73 0.80 - 4.70 x10'3/uL 06/28/2023 10:58 AM [facility] ABS. MONOCYTES 0.59 0.00 - 1.50 x10'3/uL 06/28/2023 10:58 AM [facility] ABS. EOSINOPHILS 1.01(H) 0.00 - 0.40 x10'3/uL 06/28/2023 10:58 AM [facility] ABS. BASOPHILS 0.13 0.00 - 0.20 x10'3/uL 06/28/2023 10:58 AM [facility] ABS. IMMATURE GRANULOCYTES 0.04(H) 0.00 - 0.03 x10'3/uL 06/28/2023 10:58 AM CUSTOMER SERVICE PROFESSIONAL [facility] ABS. NUCLEATED RBC'S 0.00 0.00 x10'3/uL 06/28/2023 10:58 AM CUSTOMER SERVICE PROFESSIONAL [facility] PLT MORPH. 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
--- OUTSIDE RECORDS SUMMARY | 2024-07-11 05:40 | XMS_ITS | Encounter Summary ---
Author Organization [facility] Address [address] [place] [address]. [place] [address] [place] [address] Care Team Providers Care Grain Weigher Name Role Phone Alejandro Blevins MD Primary Care Provider [phone] Reason for Visit * Reason Comments Infusion Therapy * Treatment/Therapy Plan Authorization (Routine) - Closed Specialty Diagnoses / Procedures Referred By Contac t Referred To Contact Diagnoses Anemia Procedures Roberta Evans MD [address] [place] [address] Phone: tel: fax: [facility] [place] [address] Phone: tel: Referral ID Status Reason Start Date Expiration Date Visits Re quested Visits Authorized [id number] Closed 05/18/2023 05/18/2024 1 1 Encounter Details Date Type Department Care Team (Latest Contact Info) Description 06/23/2023 11:20 AM ASSISTANT SALES CENTER MANAGER - 06/23/2023 11:59 PM [facility] Hospital Encounter [facility] [place] [address] Roberta Alex MD [address] [place] [address] Infusion Therapy Discharge Disposition: Home or Self [...] on file Legal Sex Female 11:30 PM ASSISTANT SALES CENTER MANAGER Gender Identity Female 11/10/2021 3:09 PM CDT Sexual Orientation Straight 11/10/2021 3: 09 PM CDT documented as of this encounter Last Filed Vital Signs Vital Sign Reading Time Taken Comments Blood Pressure 116/85 06/23/2023 12:34 PM ASSISTANT SALES CENTER MANAGER Pulse 85 06/23/2023 12:34 PM ASSISTANT SALES CENTER MANAGER Temperature 36.3 ??C (97.4 ??F) 06/23/2023 1 2:34 PM ASSISTANT SALES CENTER MANAGER Respiratory Rate 18 06/23/2023 12:3 4 PM ASSISTANT SALES CENTER MANAGER Oxygen Saturation 97% 06/23/2023 12: 34 PM ASSISTANT SALES CENTER MANAGER Inhaled Oxygen Concentration - - Weight 81.1 kg (178 lb 12.8 oz) 023 12:34 PM ASSISTANT SALES CENTER MANAGER Height - - Body Mass Index 31.67 10/28/2022 3:44 PM CDT documented in this encounter Functional Status * RETIRED Are you deaf or do you have serious difficulty hearing Answer Date of Assessment Author Status No 07/30/2020 10:48 PM ASSISTANT SALES CENTER MANAGER Acti ve * RETIRED Are you blind or do you have serious difficulty seeing, even when wearing glasses? Answer Date of Assessment Author Status No 07/30/2020 10:46 PM ASSISTANT SALES CENTER MANAGER Acti ve * Do you have serious difficulty walking or climbing stairs? Answer Date of Assessment Author Status No 07/30/2020 10:46 PM ASSISTANT SALES CENTER MANAGER Nella Le RN Active * Do [...] 04/11/2023 4 documented as of this encounter Progress Notes * Cecilia Healy - 06/23/2023 11:30 AM CSTEncounter addended by: Cecilia Healy on: 06/24/2023 12:27 PM Actions taken: Charge Capture section accepted STANT SALES CENTER MANAGER * Leslie Soriano RN - 06/23/2023 11:30 AM CST PATIENT ASSESSMENT: Admitted via: [...] be free from signs/symptoms of physical injury STANT SALES CENTER MANAGER documented in this encounter Plan of Treatment Upcoming Encounters Date Type Department Care Team (Late st Contact Info) Description 09/25/2024 11:30 AM ASSISTANT SALES CENTER MANAGER Appointment [facility] [address] [address] [place] [address] Roberta Alex MD [address] [place] [address] 09/25/2024 11:40 AM ASSISTANT SALES CENTER MANAGER Office Visit [facility] [address] [place] [address] Roberta Alex MD [address] [place] [id number] documented as of this encounter Visit Diagnoses [...] 400 mL/hr, Once, 1 dose, On Brittni 06/23/23 at 1145Indications:Iron deficiency anemia due to chronic blood loss New Bag 06/23/2023 11:55 AM ASSISTANT SALES CENTER MANAGER 200 mg 400 mL/hr documented in this encounter Additional Health Concerns Infection Onset Date Last Indicated Resolved Time MRSA 06/05/2021 06/05/2021 documented as of this encounter Care Teams Grain Weigher Relationship Specialty Start Date End Date Alejandro Blevins MD PCP - General FAMILY PRACTICE 12/10/19 documented as of this encounter
--- OUTSIDE RECORDS SUMMARY | 2024-07-11 05:40 | XMS_ITS | Encounter Summary ---
Author Organization [facility] Address [facility] [place] [address] [place] [address] Care Team Providers Care Car Repair Supervisor Name Role Phone Alejandro Blevins MD Primary Care Provider [phone] Encounter Details Date Type Department Care Team (Latest Contact Info) Description 05/03/2023 1:50 PM CDT - 05/03/2023 3:09 PM CDT Hospital Encounter [address] [place] [address] Roberta Alex MD [address] [place] [address] Discharge Disposition: Home or Self Care (Routine Discharge) Social History Tobacco Use Types Packs/Day Years Used Date Smoking Tobacco: Every Day Cigarettes Smokeless Tobacco: Never Alcohol Use Standard Drinks/Week Comments Not Currently 0 (1 standard drink = 0.6 oz pur e alcohol) Comments No Sex and Gender Information Value Date Recorded Sex Assigned at Not on file Legal Sex Female 11:30 PM TEXTILE COLORIST FORMULATOR Gender Identity Female 11/10/2021 3:09 PM CDT Sexual Orientation Straight 11/10/2021 3: 09 PM CDT documented as of this encounter Functional Status * RETIRED Are you deaf or do you have serious difficulty hearing Answer Date of Assessment Author Status No 07/30/2020 10:48 PM TEXTILE COLORIST FORMULATOR Acti ve * RETIRED Are you blind or do you have serious difficulty seeing, even when wearing glasses? Answer Date of Assessment Author Status No 07/30/2020 10:46 PM TEXTILE COLORIST FORMULATOR Acti ve * Do you have serious [...] st Contact Info) Description 09/25/2024 11:30 AM TEXTILE COLORIST FORMULATOR Appointment [facility] [address] [place] [address] Roberta Alex MD [address] [place] [address] 09/25/2024 11:40 AM TEXTILE COLORIST FORMULATOR Office Visit [facility] [place] [id number] [place] [address] Roberta Alex MD [address] [place] [address] documented as of this encounter Procedures Procedure Name Priority Date/Time Associated Diagnosis Comments URINALYSIS WI REFLEX TO CULTURE Routine 05/03/2023 3:15 PM CDT Healthcare maintenance CBC W/DIFF AUTOMATED Routine 05/03/2023 2:19 PM CDT Chronic ITP (idiopathic thrombocytopenia) ([facility]/HCC [facility]/HCC) documented in this encounter Results * URINALYSIS WI REFLEX TO CULTURE (05/03/2023 3:15 PM CDT) COLOR (U) YELLOW 05/03/2023 3:30 PM CDT [facility] TRANSPARENCY CLEAR 05/03/2023 3:30 PM CDT [facility] SPECIFIC GRAVITY (U) 1.020 1.000 - 1.025 05/03/2023 3:30 PM CDT [facility] U PH 6.0 5.0 - 8.0 05/03/2023 3:30 PM CDT [facility] LEUKOCYTES (U) NEGATIVE NEGATIVE 05/03/2023 3:30 PM CDT [facility] NITRITES NEGATIVE NEGATIVE 05/03/2023 3:30 PM CDT [facility] PROTEIN RANDOM (U) NEGATIVE NEGATIVE 05/03/2023 3:30 PM CDT [facility] GLUCOSE (U) NEGATIVE NEGATIVE 05/03/2023 3:30 PM CDT [facility] KETONES MG/DL (U) NEGATIVE NEGATIVE 05/03/2023 3:30 PM CDT [facility] UROBILINOGEN 0.2 <1.0 EU/DL 05/03/2023 3:30 PM CDT [facility] BILIRUBIN (U) NEGATIVE NEGATIVE 05/03/2023 3:30 PM CDT [facility] BLOOD (U) NEGATIVE NEGATIVE 05/03/2023 3:30 PM CDT [facility] WBC/HPF 0-5 0 - 5 /HPF 05/03/2023 3:30 PM CDT [facility] RBC/HPF 0-5 0 - 5 /HPF 05/03/2023 3:30 PM CDT [facility] EPI/LPF 0-5 /LPF 05/03/2023 3:30 PM CDT [facility] BACTERIA (U) NONE SEEN /HPF 05/03/2023 3:30 PM CDT [facility] MUCUS MODERATE 05/03/2023 3:30 PM CDT [facility] AMORPHOUS SEDIMENT FEW 05/03/2023 3:30 PM CDT [facility] REFLEX URINE CULTURE: NOT INDICATED 05/03/2023 3:31 PM CDT [facility] URINE SPECIMEN / Unknown 05/03/2023 3:15 PM CDT us Roberta Alex MD URINE ORDERABLES Final Result [facility] [address] [place] [address], * (ABNORMAL) CBC W/DIFF AUTOMATED (05/03/2023 2:19 PM CDT) WBC 8.09 4.00 - 10.80 x10'3/uL 05/03/2023 5:48 PM CDT [facility] RBC 4.51 4.10 - 5.40 x10'6/uL 05/03/2023 5:48 PM CDT [facility] HGB 13.4 12.0 - 16.0 G/DL 05/03/2023 5:48 PM CDT [facility] HCT 41.1 36.0 - 47.0 % 05/03/2023 5:48 PM CDT [facility] MCV 91.1 78.0 - 100.0 FL 05/03/2023 5:48 PM CDT [facility] MCH 29.7 27.0 - 31.0 PG 05/03/2023 5:48 PM CDT [facility] MCHC 32.6(L) 33.0 - 36.0 G/DL 05/03/2023 5:48 PM CDT [facility] RDW 12.2 11.5 - 14.5 % 05/03/2023 5:48 PM CDT [facility] PLT 59(L) 150 - 350 x10'3/uL 05/03/2023 5:48 PM CDT [facility] MPV 14.1(H) 7.4 - 10.4 FL 05/03/2023 5:48 PM CDT [facility] CBC COMMENT NORMAL REFERENCE RANGE NOT ESTABLISHED FOR THE PROPORTIONAL LEUKOCYTE DIFFERENTIAL. 05/03/2023 5:48 PM CDT [facility] NEUTROPHILS % 66.9 % 05/03/2023 6:32 PM CDT [facility] LYMPHOCYTES % 20.0 % 05/03/2023 6:32 PM CDT [facility] MONOCYTES % 5.7 % 05/03/2023 6:32 PM CDT [facility] EOSINOPHILS % 6.1 % 05/03/2023 6:32 PM CDT [facility] BASOPHILS % 0.9 % 05/03/2023 6:32 PM CDT [facility] IMMATURE GRANS % 0.4 % 05/03/20 6:32 PM CDT [facility] NRBC 0.0 % 05/03/2023 6:32 PM CDT [facility] ABS. NEUTROPHILS 5.42 1.60 - 8.30 x10'3/uL 05/03/2023 6:32 PM CDT [facility] ABS. LYMPHOCYTES 1.62 0.80 - 4.70 x10'3/uL 05/03/2023 6:32 PM CDT [facility] ABS. MONOCYTES 0.46 0.00 - 1.50 x10'3/uL 05/03/2023 6:32 PM CDT [facility] ABS. EOSINOPHILS 0.49(H) 0.00 - 0.40 x10'3/uL 05/03/2023 6:32 PM CDT [facility] ABS. BASOPHILS 0.07 0.00 - 0.20 x10'3/uL 05/03/2023 6:32 PM CDT [facility] ABS. IMMATURE GRANULOCYTES 0.03 0.00 - 0.03 x10'3/uL 05/03/2023 6:32 PM CDT [facility] ABS. NUCLEATED RBC'S 0.00 0.00 x10'3/uL 05/03/2023 6:32 PM CDT [facility] PLT MORPH. DECREASED 05/03/2023 6:32 PM CDT [facility] Comment:GIANT PLATELETS RBC MORPHOLOGY NORMAL 05/03/2023 6:32 PM CDT [facility] 05/03/2023 2:19 PM CDT us Roberta Alex MD LABORATORY Final Result [facility] [address] [place] [address], documented in this encounter Visit Diagnoses Diagnosis Chronic ITP (idiopathic thrombocytopenia) ([facility]/HCC [facility]) Immune thrombocytopenic purpura Healthcare maintenance Routine general medical examination at a health care facility documented in this encounter Additional Health Concerns Infection Onset Date Last Indicated Resolved Time MRSA 06/05/2021 06/05/2021 documented as of this encounter Care Teams Car Repair Supervisor Relationship Specialty Start Date End Date Alejandro Blevins MD PCP - General FAMILY PRACTICE 12/10/19 documented as of this encounter
--- OUTSIDE RECORDS SUMMARY | 2024-07-11 05:40 | XMS_ITS | Encounter Summary ---
Author Organization [facility] Address [address] [place] [address]. [place] [address] [place] [address] Care Team Providers Care Accounts Receivable Manager Name Role Phone Alejandro Blevins MD Primary Care Provider [phone] Encounter Details Date Type Department Care Team (Latest Contact Info) Description 01/20/2023 1:50 AM CDT - 01/20/2023 11:59 PM CDT Hospital Encounter [address] [place] [address] Roberta Alex MD [address] [place] [address] Discharge Disposition: Home or Self Care (Routine Discharge) Social History Tobacco Use Types Packs/Day Years Used Date Smoking Tobacco: Every Day Cigarettes Smokeless Tobacco: Never Alcohol Use Standard Drinks/Week Comments Not Currently 0 (1 standard drink = 0.6 oz pur e alcohol) Comments No Sex and Gender Information Value Date Recorded Sex Assigned at Not on file Legal Sex Female 11:30 PM BLEACH SUPERVISOR Gender Identity Female 11/10/2021 3:09 PM [...] Assessment Author Status No 07/30/2020 10:48 PM BLEACH SUPERVISOR Acti ve * RETIRED Are you blind or do you have serious difficulty seeing, even when wearing glasses? Answer Date of Assessment Author Status No 07/30/2020 10:46 PM BLEACH SUPERVISOR Acti ve * Do you have [...] st Contact Info) Description 09/25/2024 11:30 AM BLEACH SUPERVISOR Appointment [facility] [place] [address] [place] [address] Roberta Alex MD [address] [place] [address] 09/25/2024 11:40 AM BLEACH SUPERVISOR Office Visit [facility] [place] [address] [address] Roberta Alex MD [address] [place] [address] documented as of this encounter Procedures Procedure Name Priority Date/Time Associated Diagnosis Comments CBC W/DIFF AUTOMATED Routine 01/20/2023 1:53 PM CDT Acute ITP (CMS/HCC HHS/HCC) documented in this encounter Results * (ABNORMAL) CBC W/DIFF AUTOMATED (01/20/2023 1:53 PM CDT) WBC 13.84(H) 4.00 - 10.80 x10'3/uL 01/20/2023 1:59 PM CDT [facility] RBC 4.70 4.10 - 5.40 x10'6/uL 01/20/2023 1:59 PM CDT [facility] HGB 13.7 12.0 - 16.0 G/DL 01/20/2023 1:59 PM CDT [facility] HCT 42.6 36.0 - 47.0 % 01/20/2023 1:59 PM CDT [facility] MCV 90.6 78.0 - 100.0 FL 01/20/2023 1:59 PM CDT [facility] MCH 29.1 27.0 - 31.0 PG 01/20/2023 1:59 PM CDT [facility] MCHC 32.2(L) 33.0 - 36.0 G/DL 01/20/2023 1:59 PM CDT [facility] RDW 12.5 11.5 - 14.5 % 01/20/2023 1:59 PM CDT [facility] PLT 254 150 - 350 x10'3/uL 01/20/2023 1:59 PM CDT [facility] MPV 12.7(H) 7.4 - 10.4 FL 01/20/2023 1:59 PM CDT [facility] CBC COMMENT NORMAL REFERENCE RANGE NOT ESTABLISHED FOR THE PROPORTIONAL LEUKOCYTE DIFFERENTIAL. 01/20/2023 1:59 PM CDT [facility] NEUTROPHILS % 79.4 % 01/20/2023 1:59 PM CDT [facility] LYMPHOCYTES % 12.6 % 01/20/2023 1:59 PM CDT [facility] MONOCYTES % 3.8 % 01/20/2023 1:59 PM CDT [facility] EOSINOPHILS % 3.2 % 01/20/2023 1:59 PM CDT [facility] BASOPHILS % 0.7 % 01/20/2023 1:59 PM CDT [facility] IMMATURE GRANS % 0.3 % 01/21/20 1:59 PM CDT [facility] NRBC 0.0 % 01/20/2023 1:59 PM CDT [facility] ABS. NEUTROPHILS 11.00(H) 1.60 - 8.30 x10'3/uL 01/20/2023 1:59 PM CDT [facility] ABS. LYMPHOCYTES 1.74 0.80 - 4.70 x10'3/uL 01/20/2023 1:59 PM CDT [facility] ABS. MONOCYTES 0.53 0.00 - 1.50 x10'3/uL 01/20/2023 1:59 PM CDT [facility] ABS. EOSINOPHILS 0.44(H) 0.00 - 0.40 x10'3/uL 01/20/2023 1:59 PM CDT [facility] ABS. BASOPHILS 0.09 0.00 - 0.20 x10'3/uL 01/20/2023 1:59 PM CDT [facility] ABS. IMMATURE GRANULOCYTES 0.04(H) 0.00 - 0.03 x10'3/uL 01/20/2023 1:59 PM CDT [facility] ABS. NUCLEATED RBC'S 0.00 0.00 x10'3/uL 01/20/2023 1:59 PM CDT [facility] 01/20/2023 1:53 PM CDT us Roberta Alex MD LABORATORY Final Result [facility] [address] [place] [address], documented in this encounter Visit Diagnoses Diagnosis Acute ITP (CMS/HCC HHS/HCC) Immune thrombocytopenic purpura documented in this encounter Additional Health Concerns Infection Onset Date Last Indicated Resolved Time MRSA 06/05/2021 06/05/2021 documented as of this encounter Care Teams Accounts Receivable Manager Relationship Specialty Start Date End Date Alejandro Blevins MD PCP - General FAMILY PRACTICE 12/10/19 documented as of this encounter
--- OUTSIDE RECORDS SUMMARY | 2024-07-11 05:40 | XMS_ITS | Encounter Summary ---
Author Organization [facility] Address [address] [place] [address]. [place] [address] [place] [address] Care Team Providers Care Vice President Payment Name Role Phone Alejandro Blevins MD Primary Care Provider [phone] Reason for Visit * Reason Onset Date Comments Other 01/13/2023 Encounter Details Date Type Department Care Team (Late st Contact Info) Description 01/13/2023 Telephone [facility] [address] [place] [address] [place] [address] Steffany Clarke, RN Other Social History Tobacco Use Types Packs/Day Years Used Date Smoking Tobacco: Every Day Cigarettes Smokeless Tobacco: Never Alcohol Use Standard Drinks/Week Comments Not Currently 0 (1 standard drink = 0.6 oz pur e alcohol) Comments No Sex and Gender Information Value Date Recorded Sex Assigned at Not on file Legal Sex Female 11:30 PM AREA ATTENDANT Gender Identity Female 11/10/2021 3:09 PM [...] Assessment Author Status No 07/30/2020 10:48 PM AREA ATTENDANT Acti ve * RETIRED Are you blind or do you have serious difficulty seeing, even when wearing glasses? Answer Date of Assessment Author Status No 07/30/2020 10:46 PM AREA ATTENDANT Acti ve * Do you have [...] documented in this encounter Progress Notes * Steffany Clarke RN - 01/13/2023 2:25 PM CDT LM for patient to call back. Was calling to reschedule her appointment on January 24 to January 27. documented in this encounter Plan of Treatment Upcoming Encounters Date Type Department Care Team (Late st Contact Info) Description 09/25/2024 11:30 AM AREA ATTENDANT Appointment [facility] [address] [place] [address] Roberta Alex MD [address] [place] [address] 09/25/2024 11:40 AM AREA ATTENDANT Office Visit [facility] [address] [place] [address] Roberta Alex MD [address] [place] [address] documented as of this encounter Visit Diagnoses Not on filedocumented in this encounter Additional Health Concerns Infection Onset Date Last Indicated Resolved Time MRSA 06/05/2021 06/05/2021 documented as of this encounter Care Teams Vice President Payment Relationship Specialty Start Date End Date Alejandro Blevins MD PCP - General FAMILY PRACTICE 12/10/19 documented as of this encounter
--- OUTSIDE RECORDS SUMMARY | 2024-07-11 05:40 | XMS_ITS | Encounter Summary ---
Author Organization [facility] Address [address] [place] [address]. [place] [address] [place] [address] Care Team Providers Care Money Laundering Investigator Name Role Phone Alejandro Blevins MD Primary Care Provider Reason for Visit * Reason Comments Infusion Therapy * Treatment/Therapy Plan Authorization (Routine) - Closed Specialty Diagnoses / Procedures Referred By Contac t Referred To Contact Diagnoses Anemia Procedures Roberta Evans MD [address] [place] [address] Phone: tel: fax: [facility] [place] [address] Phone: tel: Referral ID Status Reason Start Date Expiration Date Visits Re quested Visits Authorized [id number] Closed 05/18/2023 05/18/2024 1 1 Encounter Details Date Type Department Care Team (Latest Contact Info) Description 06/02/2023 11:30 AM ELECTRICAL SUPERVISOR - 06/02/2023 11:36 AM [facility] Hospital Encounter [facility] [place] [address] Roberta Alex MD [address] [place] [address] Infusion Therapy Discharge Disposition: Home [...] on file Legal Sex Female 11:30 PM ELECTRICAL SUPERVISOR Gender Identity Female 11/10/2021 3:09 PM CDT Sexual Orientation Straight 11/10/2021 3: 09 PM CDT documented as of this encounter Last Filed Vital Signs Vital Sign Reading Time Taken Comments Blood Pressure 112/74 06/02/2023 11:50 AM ELECTRICAL SUPERVISOR Pulse 85 06/02/2023 11:50 AM ELECTRICAL SUPERVISOR Temperature 36.2 ??C (97.2 ??F) 06/02/2023 1 1:50 AM ELECTRICAL SUPERVISOR Respiratory Rate 20 06/02/2023 11:5 0 AM ELECTRICAL SUPERVISOR Oxygen Saturation 99% 06/02/2023 11: 50 AM ELECTRICAL SUPERVISOR Inhaled Oxygen Concentration - - Weight 79.7 kg (175 lb 11.3 oz) 023 11:50 AM ELECTRICAL SUPERVISOR Height - - Body Mass Index 31.13 10/28/2022 3:44 PM CDT documented in this encounter Functional Status * RETIRED Are you deaf or do you have serious difficulty hearing Answer Date of Assessment Author Status No 07/30/2020 10:48 PM ELECTRICAL SUPERVISOR Acti ve * RETIRED Are you blind or do you have serious difficulty seeing, even when wearing glasses? Answer Date of Assessment Author Status No 07/30/2020 10:46 PM ELECTRICAL SUPERVISOR Acti ve * Do you have serious difficulty walking or climbing stairs? Answer Date of Assessment Author Status No 07/30/2020 10:46 PM ELECTRICAL SUPERVISOR Nella eL RN Active * Do you have difficulty [...] encounter Progress Notes * Cecilia Healy - 06/02/2023 11:30 AM CSTEncounter addended by: Cecilia Healy on: 06/06/2023 5:46 PM Actions taken: Charge Capture section accepted TRICAL SUPERVISOR * Luis Gonzalez RN - 06/02/2023 11:30 AM CST PATIENT ASSESSMENT: Admitted via: Ambulatory Admitted from: Home Planned procedure: Scheduled venofer Patient information verified by LUIS GONZALEZ RN. Barriers to learning: None Patient identity confirmed - Name and date of and Allergies Verified LOC: Alert Emotional: Calm Motor Activity: Gait steady Respiratory: Regular and even Circulatory: WDL Nutrition: Tolerated diet well Elimination: Voiding NURSING DIAGNOSIS: Risk of injury GOALS: Patient will be free from signs/symptoms of physical injury TRICAL SUPERVISOR documented in this encounter Plan of Treatment Upcoming Encounters Date Type Department Care Team (Late st Contact Info) Description 09/25/2024 11:30 AM ELECTRICAL SUPERVISOR Appointment [place] [id number] [facility] [address] Roberta Alex MD [address] [place] [address] 09/25/2024 11:40 AM ELECTRICAL SUPERVISOR Office Visit [facility] [address] [place] [address] Roberta Alex MD [address] [place] [address] documented as of this encounter Visit Diagnoses [...] 100 mL IVPB 200 mg, Intravenous, at 100 mL/hr, Once, 1 dose, On Brittni 06/02/23 at 1200Indications:Iron deficiency anemia due to chronic blood loss New Bag 06/02/2023 11:58 AM ELECTRICAL SUPERVISOR 200 mg 100 mL/hr documented in this encounter Additional Health Concerns Infection Onset Date Last Indicated Resolved Time MRSA 06/05/2021 06/05/2021 documented as of this encounter Care Teams Money Laundering Investigator Relationship Specialty Start Date End Date Alejandro Blevins MD PCP - General FAMILY PRACTICE 12/10/19 documented as of this encounter
--- OUTSIDE RECORDS SUMMARY | 2024-07-11 05:40 | XMS_ITS | Encounter Summary ---
Author Organization [facility] Address [facility] [place] [address] [place] [address] Care Team Providers Care Pigment Presser Name Role Phone Alejandro Blevins MD Primary Care Provider [phone] Encounter Details Date Type Department Care Team (Late st Contact Info) Description 01/21/2023 Orders Only [address] [place] [address] Roberta Alex MD [address] [place] [address] Social History Tobacco Use Types Packs/Day Years Used Date Smoking Tobacco: Every Day Cigarettes Smokeless Tobacco: Never Alcohol Use Standard Drinks/Week Comments Not Currently 0 (1 standard drink = 0.6 oz pur e alcohol) Comments No Sex and Gender Information Value Date Recorded Sex Assigned at Not on file Legal Sex Female 11:30 PM TANK PUMPER Gender Identity Female 11/10/2021 3:09 PM CDT [...] Assessment Author Status No 07/30/2020 10:48 PM TANK PUMPER Acti ve * RETIRED Are you blind or do you have serious difficulty seeing, even when wearing glasses? Answer Date of Assessment Author Status No 07/30/2020 10:46 PM TANK PUMPER Acti ve * Do you have serious [...] st Contact Info) Description 09/25/2024 11:30 AM TANK PUMPER Appointment [facility] [address] [place] [address] Roberta Alex MD [address] [place] [address] 09/25/2024 11:40 AM TANK PUMPER Office Visit [facility] [address] [place] [address] Roberta Alex MD [address] [place] [address] documented as of this encounter Visit Diagnoses Diagnosis Abnormal CT scan- Primary Other nonspecific (abnormal) findings on radiological and other examinations of body structure documented in this encounter Additional Health Concerns Infection Onset Date Last Indicated Resolved Time MRSA 06/05/2021 06/05/2021 documented as of this encounter Care Teams Pigment Presser Relationship Specialty Start Date End Date Alejandro Blevins MD PCP - General FAMILY PRACTICE 12/10/19 documented as of this encounter
--- OUTSIDE RECORDS SUMMARY | 2024-07-11 05:40 | XMS_ITS | Encounter Summary ---
Author Organization [facility] Address [facility] [place] [address] [place] [address] Care Team Providers Care Strategic Planner Name Role Phone Alejandro Blevins MD Primary Care Provider [phone] Encounter Details Date Type Department Care Team (Late st Contact Info) Description 05/03/2023 Orders Only [address] [place] [address] Roberta Alex MD [address] [place] [address] Social History Tobacco Use Types Packs/Day Years Used Date Smoking Tobacco: Every Day Cigarettes Smokeless Tobacco: Never Alcohol Use Standard Drinks/Week Comments Not Currently 0 (1 standard drink = 0.6 oz pur e alcohol) Comments No Sex and Gender Information Value Date Recorded Sex Assigned at Not on file Legal Sex Female 11:30 PM INVOICING SPECIALIST Gender Identity Female 11/10/2021 3:09 PM CDT Sexual Orientation Straight 11/10/2021 3: 09 PM CDT documented as of this encounter Functional Status * RETIRED Are you deaf or do you have serious difficulty hearing Answer Date of Assessment Author Status No 07/30/2020 10:48 PM INVOICING SPECIALIST Acti ve * RETIRED Are you blind or do you have serious difficulty seeing, even when wearing glasses? Answer Date of Assessment Author Status No 07/30/2020 10:46 PM INVOICING SPECIALIST Acti ve * Do you have serious difficulty walking or climbing stairs? Answer Date of Assessment Author Status No 07/30/2020 10:46 PM INVOICING SPECIALIST Bringuet, Nella C, RN Active * Do you have difficulty dressing or bathing? Answer Date of Assessment Author Status No 07/30/2020 10:46 PM INVOICING SPECIALIST Nella Le RN Active * Because [...] st Contact Info) Description 09/25/2024 11:30 AM INVOICING SPECIALIST Appointment [facility] [address] [place] [address] Roberta Alex MD [address] [place] [address] 09/25/2024 11:40 AM INVOICING SPECIALIST Office Visit [facility] [address] [place] [address] Roberta Alex MD [address] [place] [address] documented as of this encounter Results * URINALYSIS WI REFLEX TO CULTURE (05/03/2023 3:15 PM CDT) COLOR (U) YELLOW 05/03/2023 3:30 PM CDT [facility] TRANSPARENCY CLEAR 05/03/2023 3:30 PM CDT [facility] SPECIFIC GRAVITY (U) 1.020 1.000 - 1.025 05/03/2023 3:30 PM CDT [facility] U PH 6.0 5.0 - 8.0 05/03/2023 3:30 PM CDT [facility] LEUKOCYTES (U) NEGATIVE NEGATIVE 05/03/2023 3:30 PM CDT [facility] NITRITES NEGATIVE NEGATIVE 05/03/2023 3:30 PM CDT [facility] PROTEIN RANDOM (U) NEGATIVE NEGATIVE 05/03/2023 3:30 PM CDT [facility] GLUCOSE (U) NEGATIVE NEGATIVE 05/03/2023 3:30 PM CDT [facility] KETONES MG/DL (U) NEGATIVE NEGATIVE 05/03/2023 3:30 PM CDT [facility] UROBILINOGEN 0.2 <1.0 EU/DL 05/03/2023 3:30 PM CDT [facility] BILIRUBIN (U) NEGATIVE NEGATIVE 05/03/2023 3:30 PM CDT [facility] BLOOD (U) NEGATIVE NEGATIVE 05/03/2023 3:30 PM CDT [facility] WBC/HPF 0-5 0 - 5 /HPF 05/03/2023 3:30 PM CDT [facility] RBC/HPF 0-5 0 - 5 /HPF 05/03/2023 3:30 PM CDT [facility] EPI/LPF 0-5 /LPF 05/03/2023 3:30 PM CDT [facility] BACTERIA (U) NONE SEEN /HPF 05/03/2023 3:30 PM CDT [facility] MUCUS MODERATE 05/03/2023 3:30 PM CDT [facility] AMORPHOUS SEDIMENT FEW 05/03/2023 3:30 PM CDT [facility] REFLEX URINE CULTURE: NOT INDICATED 05/03/2023 3:31 PM CDT [facility] URINE SPECIMEN / Unknown 05/03/2023 3:15 PM CDT us Roberta Alex MD URINE ORDERABLES Final Result [facility] [address] [place] [place] [address], documented in this encounter Visit Diagnoses Diagnosis Healthcare maintenance- Primary Routine general medical examination at a health care facility documented in this encounter Additional Health Concerns Infection Onset Date Last Indicated Resolved Time MRSA 06/05/2021 06/05/2021 documented as of this encounter Care Teams Strategic Planner Relationship Specialty Start Date End Date Alejandro Blevins MD PCP - General FAMILY PRACTICE 12/10/19 documented as of this encounter
--- OUTSIDE RECORDS SUMMARY | 2024-07-11 05:40 | XMS_ITS | Encounter Summary ---
Author Organization [facility] Address [facility] [place] [address] [place] [address] Care Team Providers Care Web Project Manager Name Role Phone Alejandro Blevins MD Primary Care Provider [phone] Encounter Details Date Type Department Care Team (Late st Contact Info) Description 04/11/2023 Orders Only [address] [place] [address] Roberta Alex MD [address] [place] [address] Social History Tobacco Use Types Packs/Day Years Used Date Smoking Tobacco: Every Day Cigarettes Smokeless Tobacco: Never Alcohol Use Standard Drinks/Week Comments Not Currently 0 (1 standard drink = 0.6 oz pur e alcohol) Comments No Sex and Gender Information Value Date Recorded Sex Assigned at Not on file Legal Sex Female 11:30 PM NUTRITION DIRECTOR Gender Identity Female 11/10/2021 3:09 PM CDT Sexual Orientation Straight 11/10/2021 3: 09 PM CDT documented as of this encounter Functional Status * RETIRED Are you deaf or do you have serious difficulty hearing Answer Date of Assessment Author Status No 07/30/2020 10:48 PM NUTRITION DIRECTOR Acti ve * RETIRED Are you blind or do you have serious difficulty seeing, even when wearing glasses? Answer Date of Assessment Author Status No 07/30/2020 10:46 PM NUTRITION DIRECTOR Acti ve * Do you have serious difficulty walking or climbing stairs? Answer Date of Assessment Author Status No 07/30/2020 10:46 PM NUTRITION DIRECTOR Bringuet, Nella C, RN Active * Do you have difficulty dressing or bathing? Answer Date of Assessment Author Status No 07/30/2020 10:46 PM NUTRITION DIRECTOR Nella Le RN Active * Because [...] st Contact Info) Description 09/25/2024 11:30 AM NUTRITION DIRECTOR Appointment [facility] [address] [place] [address] Roberta Alex MD [address] [place] [address] 09/25/2024 11:40 AM NUTRITION DIRECTOR Office Visit [facility] [address] [place] [address] Roberta Alex MD [address] [place] [address] documented as of this encounter Results * FERRITIN (04/19/2023 9:35 AM CDT) FERRITIN 31.9 8 - 252 NG/ML 04/19/2023 10:11 AM CDT [facility] 04/19/2023 9:35 AM CDT Roberta Alex MD LABORATORY Final Result [facility] [address] [place] [address], * IRON SAT PANEL (IRON,IBC,%SAT) (04/19/2023 9:35 AM CDT) IRON 55 50 - 170 MCG/DL 04/19/2023 10:24 AM CDT [facility] IRON BINDING CAPACITY 318 250 - 450 MCG/DL 04/19/2023 10:24 AM CDT [facility] IRON SATURATION 17 % 10:24 AM CDT [facility] Comment:REFERENCE RANGE NOT ESTABLISHED 04/19/2023 9:35 AM CDT us Roberta Alex MD LABORATORY Final Result [facility] [address] [place] [address], * (ABNORMAL) CBC W/DIFF AUTOMATED (04/19/2023 9:35 AM CDT) WBC 7.62 4.00 - 10.80 x10'3/uL 04/19/2023 10:12 AM CDT [facility] RBC 4.53 4.10 - 5.40 x10'6/uL 04/19/2023 10:12 AM CDT [facility] HGB 13.5 12.0 - 16.0 G/DL 04/19/2023 10:12 AM CDT [facility] HCT 41.4 36.0 - 47.0 % 04/19/2023 10:12 AM CDT [facility] MCV 91.4 78.0 - 100.0 FL 04/19/2023 10:12 AM CDT [facility] MCH 29.8 27.0 - 31.0 PG 04/19/2023 10:12 AM CDT [facility] MCHC 32.6(L) 33.0 - 36.0 G/DL 04/19/2023 10:12 AM CDT [facility] RDW 12.4 11.5 - 14.5 % 04/19/2023 10:12 AM CDT [facility] PLT 50(L) 150 - 350 x10'3/uL 04/19/2023 10:12 AM CDT [facility] MPV 14.8(H) 7.4 - 10.4 FL 04/19/2023 10:12 AM CDT [facility] CBC COMMENT NORMAL REFERENCE RANGE NOT ESTABLISHED FOR THE PROPORTIONAL LEUKOCYTE DIFFERENTIAL. 04/19/2023 10:12 AM CDT [facility] NEUTROPHILS % 65.3 % 04/19/2023 10:23 AM CDT [facility] LYMPHOCYTES % 20.6 % 04/19/2023 10:23 AM CDT [facility] MONOCYTES % 4.6 % 04/19/2023 10:23 AM CDT [facility] EOSINOPHILS % 7.9 % 04/19/2023 10:23 AM CDT [facility] BASOPHILS % 1.2 % 04/19/2023 10:23 AM CDT [facility] IMMATURE GRANS % 0.4 % 04/19/20 10:23 AM CDT [facility] NRBC 0.0 % 04/19/2023 10:23 AM CDT [facility] ABS. NEUTROPHILS 4.98 1.60 - 8.30 x10'3/uL 04/19/2023 10:23 AM CDT [facility] ABS. LYMPHOCYTES 1.57 0.80 - 4.70 x10'3/uL 04/19/2023 10:23 AM CDT [facility] ABS. MONOCYTES 0.35 0.00 - 1.50 x10'3/uL 04/19/2023 10:23 AM CDT [facility] ABS. EOSINOPHILS 0.60(H) 0.00 - 0.40 x10'3/uL 04/19/2023 10:23 AM CDT [facility] ABS. BASOPHILS 0.09 0.00 - 0.20 x10'3/uL 04/19/2023 10:23 AM CDT [facility] ABS. IMMATURE GRANULOCYTES 0.03 0.00 - 0.03 x10'3/uL 04/19/2023 10:23 AM CDT [facility] ABS. NUCLEATED RBC'S 0.00 0.00 x10'3/uL 04/19/2023 10:23 AM CDT [facility] PLT MORPH. DECREASED 04/19/2023 10:23 AM CDT [facility] RBC MORPHOLOGY NORMAL 04/19/2023 10:23 AM CDT [facility] 04/19/2023 9:35 AM CDT Roberta Alex MD LABORATORY Final Result [facility] [address] [place] [address], documented in this encounter Visit Diagnoses Diagnosis Chronic ITP (idiopathic thrombocytopenia) (CMS/HCC HHS/HCC)- Primary Immune thrombocytopenic purpura documented in this encounter Additional Health Concerns Infection Onset Date Last Indicated Resolved Time MRSA 06/05/2021 06/05/2021 documented as of this encounter Care Teams Web Project Manager Relationship Specialty Start Date End Date Alejandro Blevins MD PCP - General FAMILY PRACTICE 12/10/19 documented as of this encounter
--- OUTSIDE RECORDS SUMMARY | 2024-07-11 05:40 | XMS_ITS | Encounter Summary ---
Author Organization [facility] Address [address] [place] [address]. [place] [address] [place] [address] Care Team Providers Care Aviation Electrician Name Role Phone Alejandro Blevins MD Primary Care Provider [phone] Reason for Visit * Reason Comments Follow Up Chronic ITP Lab Results Encounter Details Date Type Department Care Team (Late st Contact Info) Description 04/11/2023 8:30 AM CDT Office Visit [address] [place] [address] Carey Pang, APNP [address] [place] [phone] Follow Up (Chronic ITP); Lab Results Social [...] on file Legal Sex Female 11:30 PM BATCH ROLLER OPERATOR Gender Identity Female 11/10/2021 3:09 PM CDT Sexual Orientation Straight 11/10/2021 3: 09 PM CDT documented as of this encounter Last Filed Vital Signs Vital Sign Reading Time Taken Comments Blood Pressure 119/71 04/11/2023 8:20 AM CDT Pulse 78 04/11/2023 8:20 AM CDT Temperature 35.9 ??C (96.6 ??F) 04/11/2023 8:20 AM CD T Respiratory Rate 18 04/11/2023 8:20 AM CDT Oxygen Saturation 100% 04/11/2023 8:20 AM CDT Inhaled Oxygen Concentration - - Weight 79 kg (174 lb 3.2 oz) 04/11/2023 8:20 AM CDT Height - - Body Mass Index 30.86 10/28/2022 3:44 PM CDT documented in this encounter Functional Status * RETIRED Are you deaf or do you have serious difficulty hearing Answer Date of Assessment Author Status No 07/30/2020 10:48 PM BATCH ROLLER OPERATOR Acti ve * RETIRED Are you blind or do you have serious difficulty seeing, even when wearing glasses? Answer Date of Assessment Author Status No 07/30/2020 10:46 PM BATCH ROLLER OPERATOR Acti ve * Do you have [...] encounter Progress Notes * EMANUEL Gonzalez - 04/11/2023 8:30 AM CDT HEMATOLOGY/ONCOLOGY NOTE IDENTIFYING DATA: Hillary Smalls is a 32-year-old female REASON FOR VISIT: Follow Up (Chronic ITP) and Lab Results HEMATOLOGY HISTORY: Hillary Smalls is a 30-year-old female with hx of ITP, hepatitis C, polysubstance abuse,established care with me when she was with twins at 20 weeks gestation in 11/2019 and had no care. 1. ITP: Previously followed with [facility] javascript application developer Dr. Dick Bonilla. - 11/2019- 03/2020: Platelet counts around [...] INTERVAL HISTORY: Patient returns today for routine follow-up for chronic ITP. She was last seen in the clinic on January 03, 2023. She received 3 doses of Nplate. 1 mcg on December 27, 2 mcg on January 03, and 4 mcg on January 10.she also received 4 IV Venofer weekly infusions towards the end of November through beginning of December 2022. She reports she has remained off of work. 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 She denies any major bleeding or blood in stool or urine. She does occasionally experience some bleeding when brushing her teeth intermittently. She has felt increased fatigue and worsening restless leg. She has IUD placement. Appetite is okay. Weight is stable. Currently denies fever, chills, nausea, vomiting, chest pain, shortness of breath,abdominal pain. REVIEW OF SYSTEMS: 10-point review of systems [...] Current Outpatient Medications Medication Sig Dispense Refill buprenorphine-naloxone (SUBOXONE) 8-2 MG SL Tab SL tablet PLACE 1 TABLET TWICE A DAY BY SUBLINGUAL ROUTE DIRECTED FOR 30 DAYS. hydrOXYzine (VISTARIL) 50 MG capsule TAKE 1 CAPSULE BY MOUTH TWICE A DAY NEEDED FOR 30 DAYS SUMAtriptan (IMITREX) 100 MG tablet holeath-ngnvydadwpagf-rplrnbsd (EXCEDRIN MIGRAINE) 250-250-65 MG tablet Take 1 [...] Height: 5' 3 (1.6 m) , Weight: 79 kg (174 lb 3.2 oz) , BSA (Calculated - sq m): 1.78 sq meters , BP: 119/71 , Temp: 96.6 ??F (35.9 ??C) , Pulse: 78 , Resp: 18 PHYSICAL EXAMINATION: CONST: Overall is in usual [...] LABORATORY Lab Results Component Value Date/Time WBC 9.21 04/11/2023 08:07 AM HGB 13.1 04/11/2023 08:07 AM PLT 51 (L) 04/11/2023 08:07 AM NEUC 6.08 03/24/2023 02:22 PM CR 0.77 12/07/2022 10:15 AM K [...] work, and treatment plan. Clinically, she appearsstable although she has continued to experience fatigue, no current bleeding. Advised soft bristle toothbrush. CBC is remarkable for platelet count 51. She receives weekly Nplate x3 from December 27 through January 10.At that time, platelet count had recovered to 254. Platelet count has trended back downward. I discussed with Dr. Alex over the phone and then discussed options with patient. Option 1 would be to check CBC weekly and reinitiate Nplate at 2 mcg dosage until platelet count improves to around 150. Second option, due to chronic ITP, we may continue to monitor closely and consider initiating Nplate only if platelet count drops to less than 30. Fatigue may also be related to history of iron deficiency anemia. She was last given iron from the end of November 2022 through beginning of December 2022. She would like to proceed with weekly monitoring of CBC and to consider Nplate initiation if platelet count drops to less than 30. She will return next week for CBC check. At that time, we will recheck iron panel and ferritin. We will set up for additional IV iron if indicated based on results. She will return to see Dr. Alex in 4 weeks. The patient verbalized understanding of plan of care and will call us in the interim with any further questions or concerns. EMANUEL GONZALEZ CC: Alejandro Blevins MD documented in this encounter Plan of Treatment Upcoming Encounters Date Type Department Care Team (Late st Contact Info) Description 09/25/2024 11:30 AM BATCH ROLLER OPERATOR Appointment [facility] [address] [place] [address] Roberta Alex MD [address] [place] [id number] 09/25/2024 11:40 AM BATCH ROLLER OPERATOR Office Visit [facility] [address] [place] [address] [place] [address] Roberta Alex MD [address] [place] [id number] documented as of this encounter Visit Diagnoses Diagnosis Chronic ITP (idiopathic thrombocytopenia) ([facility]/HCC [facility]/HCC)- Primary Immune thrombocytopenic purpura Iron deficiency anemia secondary to inadequate dietary iron intake documented in this encounter Additional Health Concerns Infection Onset Date Last Indicated Resolved Time MRSA 06/05/2021 06/05/2021 documented as of this encounter Care Teams Aviation Electrician Relationship Specialty Start Date End Date Alejandro Blevins MD PCP - General FAMILY PRACTICE 12/10/19 documented as of this encounter
--- OUTSIDE RECORDS SUMMARY | 2024-07-11 05:40 | XMS_ITS | Encounter Summary ---
Author Organization [facility] Address [facility] [place] [address] [place] [address] Care Team Providers Care Storage Worker Name Role Phone Alejandro Blevins MD Primary Care Provider Encounter Details Date Type Department Care Team (Late st Contact Info) Description 04/11/2023 Orders Only [address] [place] [address] Roberta Alex MD [address] [place] [address] Social History Tobacco Use Types Packs/Day Years Used Date Smoking Tobacco: Every Day Cigarettes Smokeless Tobacco: Never Alcohol Use Standard Drinks/Week Comments Not Currently 0 (1 standard drink = 0.6 oz pur e alcohol) Comments No Sex and Gender Information Value Date Recorded Sex Assigned at Not on file Legal Sex Female 11:30 PM LOAD OUT SUPERVISOR Gender Identity Female 11/10/2021 3:09 PM CDT Sexual Orientation Straight 11/10/2021 3: 09 PM CDT documented as of this encounter Functional Status * RETIRED Are you deaf or do you have serious difficulty hearing Answer Date of Assessment Author Status No 07/30/2020 10:48 PM LOAD OUT SUPERVISOR Acti ve * RETIRED Are you blind or do you have serious difficulty seeing, even when wearing glasses? Answer Date of Assessment Author Status No 07/30/2020 10:46 PM LOAD OUT SUPERVISOR Acti ve * Do you have serious difficulty walking or climbing stairs? Answer Date of Assessment Author Status No 07/30/2020 10:46 PM LOAD OUT SUPERVISOR Bringuet, Nella C, RN Active * Do you have difficulty dressing or bathing? Answer Date of Assessment Author Status No 07/30/2020 10:46 PM LOAD OUT SUPERVISOR Nella Le RN Active * Because [...] st Contact Info) Description 09/25/2024 11:30 AM LOAD OUT SUPERVISOR Appointment [facility] [address] [place] [address] Roberta Alex MD [address] [place] [address] 09/25/2024 11:40 AM LOAD OUT SUPERVISOR Office Visit [facility] [address] [place] [address] Roberta Alex MD [address] [place] [address] documented as of this encounter Results * (ABNORMAL) CBC W/DIFF AUTOMATED (05/03/2023 2:19 PM CDT) [facility] WBC 8.09 4.00 - 10.80 x10'3/uL 05/03/2023 5:48 PM CDT [facility] RBC 4.51 4.10 - 5.40 x10'6/uL 05/03/2023 5:48 PM CDT [facility] HGB 13.4 12.0 - 16.0 G/DL 05/03/2023 5:48 PM CDT [facility] HCT 41.1 36.0 - 47.0 % 05/03/2023 5:48 PM CDT [facility] MCV 91.1 78.0 - 100.0 FL 05/03/2023 5:48 PM CDT [facility] MCH 29.7 27.0 - 31.0 PG 05/03/2023 5:48 PM CDT [facility] MCHC 32.6(L) 33.0 - 36.0 G/DL 05/03/2023 5:48 PM CDT [facility] RDW 12.2 11.5 - 14.5 % 05/03/2023 5:48 PM CDT [facility] PLT 59(L) 150 - 350 x10'3/uL 05/03/2023 5:48 PM CDT [facility] MPV 14.1(H) 7.4 - 10.4 FL 05/03/2023 5:48 PM CDT [facility] CBC COMMENT NORMAL REFERENCE RANGE NOT ESTABLISHED FOR THE PROPORTIONAL LEUKOCYTE DIFFERENTIAL. 05/03/2023 5:48 PM CDT [facility] NEUTROPHILS % 66.9 % 05/03/2023 6:32 PM CDT [facility] LYMPHOCYTES % 20.0 % 05/03/2023 6:32 PM CDT [facility] MONOCYTES % 5.7 % 05/03/2023 6:32 PM CDT [facility] EOSINOPHILS % 6.1 % 05/03/2023 6:32 PM CDT [facility] BASOPHILS % 0.9 % 05/03/2023 6:32 PM CDT [facility] IMMATURE GRANS % 0.4 % 05/03/20 6:32 PM CDT [facility] NRBC 0.0 % 05/03/2023 6:32 PM CDT [facility] ABS. NEUTROPHILS 5.42 1.60 - 8.30 x10'3/uL 05/03/2023 6:32 PM CDT [facility] ABS. LYMPHOCYTES 1.62 0.80 - 4.70 x10'3/uL 05/03/2023 6:32 PM CDT [facility] ABS. MONOCYTES 0.46 0.00 - 1.50 x10'3/uL 05/03/2023 6:32 PM CDT [facility] ABS. EOSINOPHILS 0.49(H) 0.00 - 0.40 x10'3/uL 05/03/2023 6:32 PM CDT [facility] ABS. BASOPHILS 0.07 0.00 - 0.20 x10'3/uL 05/03/2023 6:32 PM CDT [facility] ABS. IMMATURE GRANULOCYTES 0.03 0.00 - 0.03 x10'3/uL 05/03/2023 6:32 PM CDT [facility] ABS. NUCLEATED RBC'S 0.00 0.00 x10'3/uL 05/03/2023 6:32 PM CDT [facility] PLT MORPH. DECREASED 05/03/2023 6:32 PM CDT [facility] Comment:GIANT PLATELETS RBC MORPHOLOGY NORMAL 05/03/2023 6:32 PM CDT [facility] 05/03/2023 2:19 PM CDT Roberta Alex MD LABORATORY Final Result [facility] [address] [place] [address], documented in this encounter Visit Diagnoses Diagnosis Chronic ITP (idiopathic thrombocytopenia) ([facility])- Primary Immune thrombocytopenic purpura documented in this encounter Additional Health Concerns Infection Onset Date Last Indicated Resolved Time MRSA 06/05/2021 06/05/2021 documented as of this encounter Care Teams Storage Worker Relationship Specialty Start Date End Date Alejandro Blevins MD PCP - General FAMILY PRACTICE 12/10/19 documented as of this encounter
--- OUTSIDE RECORDS SUMMARY | 2024-07-11 05:40 | XMS_ITS | Encounter Summary ---
Author Organization [facility] Address [address] [place] [address]. [place], [place] [id number] [place] [address] Care Team Providers Care License And Permit Specialist Name Role Phone Alejandro Blevins MD Primary Care Provider [phone] Encounter Details Date Type Department Care Team (Latest Contact Info) Description 04/19/2023 Travel Social History Tobacco Use Types Packs/Day Years Used Date Smoking Tobacco: Every Day Cigarettes Smokeless Tobacco: Never Alcohol Use Standard Drinks/Week Comments Not Currently 0 (1 standard drink = 0.6 oz pur e alcohol) Comments No Sex and Gender Information Value Date Recorded Sex Assigned at Not on file Legal Sex Female 11:30 PM BOTTLE PACKER Gender Identity Female 11/10/2021 3:09 PM CDT Sexual Orientation Straight 11/10/2021 3: 09 PM CDT documented as of this encounter Functional Status * RETIRED Are you deaf or do you have serious difficulty hearing Answer Date of Assessment Author Status No 07/30/2020 10:48 PM BOTTLE PACKER Acti ve * RETIRED Are you blind or do you have serious difficulty seeing, even when wearing glasses? Answer Date of Assessment Author Status No 07/30/2020 10:46 PM BOTTLE PACKER Acti ve * Do you have serious difficulty walking or climbing stairs? Answer Date of Assessment Author Status No 07/30/2020 10:46 PM BOTTLE PACKER Nella Le RN Active * Do you have difficulty dressing or bathing? Answer Date of Assessment Author Status No 07/30/2020 10:46 PM BOTTLE PACKER Nella Le RN Active * Because of a physical, mental, or emotional condition, do you have difficulty doing errands alone such as visiting a doctor's office or shopping? Answer Date of Assessment Author Status No 07/30/2020 10:46 PM BOTTLE PACKER Nella Le RN Active documented as of this encounter Mental Status * Because of a physical, mental, or emotional condition, do you have serious difficulty concentrating, remembering, or making decisions? Answer Entry Date Author Status No 07/30/2020 10:46 PM BOTTLE PACKER Nella Le RN Active documented in this encounter Plan of Treatment Upcoming Encounters Date Type Department Care Team (Late st Contact Info) Description 09/25/2024 11:30 AM BOTTLE PACKER Appointment [facility] [address] [place] [address] Roberta Alex MD [address] [place] [address] 09/25/2024 11:40 AM BOTTLE PACKER Office Visit [facility] [address] [address] Roberta Alex MD [address] [place] [address] documented as of this encounter Visit Diagnoses Not on filedocumented in this encounter Additional Health Concerns Infection Onset Date Last Indicated Resolved Time MRSA 06/05/2021 06/05/2021 documented as of this encounter Care Teams License And Permit Specialist Relationship Specialty Start Date End Date Alejandro Blevins MD PCP - General FAMILY PRACTICE 12/10/19 documented as of this encounter
--- OUTSIDE RECORDS SUMMARY | 2024-07-11 05:40 | XMS_ITS | Encounter Summary ---
Author Organization [facility] Address [address] [place] [address]. [place], [place] [id number] [place] [address] Care Team Providers Care Peripheral Vascular Tech Name Role Phone Alejandro Blevins MD Primary Care Provider [phone] Encounter Details Date Type Department Care Team (Latest Contact Info) Description 01/03/2023 Travel Social History Tobacco Use Types Packs/Day Years Used Date Smoking Tobacco: Every Day Cigarettes Smokeless Tobacco: Never Alcohol Use Standard Drinks/Week Comments Not Currently 0 (1 standard drink = 0.6 oz pur e alcohol) Comments No Sex and Gender Information Value Date Recorded Sex Assigned at Not on file Legal Sex Female 11:30 PM MEDICINAL PLANT PICKER Gender Identity Female 11/10/2021 3:09 PM [...] Assessment Author Status No 07/30/2020 10:48 PM MEDICINAL PLANT PICKER Acti ve * RETIRED Are you blind or do you have serious difficulty seeing, even when wearing glasses? Answer Date of Assessment Author Status No 07/30/2020 10:46 PM MEDICINAL PLANT PICKER Acti ve * Do you have serious difficulty walking or climbing stairs? Answer Date of Assessment Author Status No 07/30/2020 10:46 PM MEDICINAL PLANT PICKER Nella Le RN Active * Do you have difficulty dressing or bathing? Answer Date of Assessment Author Status No 07/30/2020 10:46 PM MEDICINAL PLANT PICKER Nella Le RN Active * Because of a physical, mental, or emotional condition, do you have difficulty doing errands alone such as visiting a doctor's office or shopping? Answer Date of Assessment Author Status No 07/30/2020 10:46 PM MEDICINAL PLANT PICKER Nella Le RN Active documented as of this encounter Mental Status * Because of a physical, mental, or emotional condition, do you have serious difficulty concentrating, remembering, or making decisions? Answer Entry Date Author Status No 07/30/2020 10:46 PM MEDICINAL PLANT PICKER Nella Le RN Active documented in this encounter Plan of Treatment Upcoming Encounters Date Type Department Care Team (Late st Contact Info) Description 09/25/2024 11:30 AM MEDICINAL PLANT PICKER Appointment [facility] [address] [place] [address] Roberta Alex MD [address] [place] [id number] 09/25/2024 11:40 AM MEDICINAL PLANT PICKER Office Visit [facility] [address] [place] [address] Roberta Alex MD [address] [place] [address] documented as of this encounter Visit Diagnoses Not on filedocumented in this encounter Additional Health Concerns Infection Onset Date Last Indicated Resolved Time MRSA 06/05/2021 06/05/2021 documented as of this encounter Care Teams Peripheral Vascular Tech Relationship Specialty Start Date End Date Alejandro Blevins MD PCP - General FAMILY PRACTICE 12/10/19 documented as of this encounter
--- OUTSIDE RECORDS SUMMARY | 2024-07-11 05:40 | XMS_ITS | Encounter Summary ---
Author Organization [facility] Address [address] [place] [address]. [place] [address] [place] [address] Care Team Providers Care Machine Ironer Name Role Phone Alejandro Blevins MD Primary Care Provider [phone] Reason for Visit * Imaging (Routine) - Closed Specialty Diagnoses / Procedures Referred By Contpriti t Referred To Contact RADIOLOGY Diagnoses Thrombocytopenia (CMS/HCC) Iron deficiency anemia secondary to inadequate dietary iron intake Procedures CT CHEST+ABD WO CON CT CHEST+ABD+PEL WO CON CT CHEST+ABD W CON Carey Pang APNP [address] [place] [phone] Phone: tel: fax: Referral ID Status Reason Start Date Expiration Date Visits Re quested Visits Authorized [id number] Closed 12/08/2022 02/05/2023 1 1 Encounter Details Date Type Department Care Team (Latest Contact Info) Description 01/05/2023 2:58 PM CDT - 01/05/2023 11:59 PM CDT Hospital Encounter [facility] [address] [facility] [place] [address] Carey Pang APNP [address] [place] [phone] Discharge Disposition: Home or Self Care (Routine Discharge) Social History Tobacco Use Types Packs/Day Years Used Date Smoking Tobacco: Every Day Cigarettes Smokeless Tobacco: Never Alcohol Use Standard Drinks/Week Comments Not Currently 0 (1 standard drink = 0.6 oz pur e alcohol) Comments No Sex and Gender Information Value Date Recorded Sex Assigned at Not on file Legal Sex Female 11:[address] FIRER Gender Identity Female 11/10/2021 3:09 PM CDT [...] Assessment Author Status No 07/30/2020 10:[address]ENGER FIRER Acti ve * RETIRED Are you blind or do you have serious difficulty seeing, even when wearing glasses? Answer Date of Assessment Author Status No 07/30/2020 10:[address] PASSENGER FIRER Acti ve * Do you have serious difficulty walking or climbing stairs? Answer Date of Assessment Author Status No 07/30/2020 10:[address] PASSENGER FIRER Nella Le RN Active * Do you have difficulty dressing or bathing? Answer Date of Assessment Author Status No 07/30/2020 10:[address] P[address]ENGER FIRER Nella Le RN Active * Because of a physical, mental, or emotional condition, do you have difficulty doing errands alone such as visiting a doctor's office or shopping? Answer Date of Assessment Author Status No 07/30/2020 10:[address] P[address]ENGER FIRER Nella Le RN Active documented as of [...] st Contact Info) Description 09/25/2024 11:[address]ENGER FIRER Appointment [facility] [address] [place] [address] Roberta Alex MD [address] [place] [address] 09/25/2024 11:[address]ENGER FIRER Office Visit [facility] [address] [place] [address] Roberta Alex MD [address] [place] [address] documented as of this encounter Procedures Procedure Name Priority Date/Time Associated Diagnosis Comments CT CHEST+ABD WO CON Routine 01/05/2023 3 :03 PM CDT Thrombocytopenia Iron deficiency anemia secondary to inadequate dietary iron intake documented in this encounter Results * CT CHEST+ABD WO CON (01/05/2023 3:03 PM CDT) Anatomical Region Laterality Modality Chest, Abdomen Computed Tomogra phy 01/06/2023 9:58 AM CDT Impressions 01/06/2023 10:09 AM CDT Impression: 1. ??No acute abnormality identified within the chest or abdomen. The spleen appears normal in size and contour. 2. ??A water density cystic structure is seen involving the upper anterior mediastinum as described. This is nonspecific but differential considerations include a duplication cyst, pericardial cyst, lymphangioma or thymic cyst. This appears benign but further characterization with contrast-enhanced MRI of the chest may be beneficial. Ordered By: CAREY SANTO Interpreted By: Ron Pyle MD, 01/06/2023 9:58 AM Narrative 01/06/2023 10:09 AM CDT Examination: CT CHEST+ABD WO CON Clinical Information: WORSENING PLATELETS, INCREASED CHEST PRESSURE, CHECK SPLENOMEGALY Comparison: CT 09/16/2014. Technique: IV contrast: None Oral contrast: None. Technical comments: Standard technique. Dose reduction: This CT exam was performed using one or more of the following dose reduction techniques: Automated exposure control, adjustment of the mA and/or kV according to patient size, and/or use of iterative reconstruction technique. Findings: MEDIASTINUM Support tubes and lines: None. Base of neck/thyroid: Negative. Heart: Normal in size. No pericardial effusion. Lymph nodes: No supraclavicular, axillary, internal mammary, mediastinal, or hilar adenopathy. There is a water density cystic structure involving the upper anterior mediastinum measuring approximately 6.2 x 2.2 cm axially (series 2 image 30), nonspecific. This extends inferiorly along the right mainstem bronchus towards the jeff. VASCULATURE The unenhanced thoracic aorta and pulmonary arteries appear normal in caliber. LUNGS AND PLEURA Lungs: Clear without focal or diffuse abnormality. Pleura: No pleural effusion, thickening, or calcification. UPPER ABDOMEN Liver and bile ducts: Normal in size and contour. No biliary dilatation. Gallbladder: Unremarkable. No gallbladder wall thickening or pericholecystic fluid. Pancreas: Negative. Spleen: Normal in size and contour. RETROPERITONEUM Adrenals: Negative. Kidneys: Negative. Lymph nodes: No lymphadenopathy in the abdomen. BOWEL AND PERITONEUM Bowel: The included bowel appears unremarkable. Free air or fluid: None. VASCULATURE The abdominal aorta is normal in caliber. BONES/SOFT TISSUES No significant lesion. Procedure Note Ron Pyle MD - 01/06/2023 Examination: CT CHEST+ABD WO CON Clinical Information: WORSENING PLATELETS, INCREASED CHEST PRESSURE, CHECKSPLENOMEGALY Comparison: CT 09/16/2014. Technique: IV contrast: None Oral contrast: None. Technical comments: Standard technique. Dose reduction: This CT exam was performed using one or more of thefollowing dose reduction techniques: Automated exposure control,adjustment of the mA and/or kV according to patient size, and/or use ofiterative reconstruction technique. Findings: MEDIASTINUM Support tubes and lines: None. Base of neck/thyroid: Negative. Heart: Normal in size. No pericardial effusion. Lymph nodes: No supraclavicular, axillary, internal mammary, mediastinal,or hilar adenopathy. There is a water density cystic structure involving the upper anteriormediastinum measuring approximately 6.2 x 2.2 cm axially (series 2 image30), nonspecific. This extends inferiorly along the right mainstembronchus towards the jeff. VASCULATURE The unenhanced thoracic aorta and pulmonary arteries appear normal incaliber. LUNGS AND PLEURA Lungs: Clear without focal or diffuse abnormality. Pleura: No pleural effusion, thickening, or calcification. UPPER ABDOMEN Liver and bile ducts: Normal in size and contour. No biliary dilatation. Gallbladder: Unremarkable. No gallbladder wall thickening orpericholecystic fluid. Pancreas: Negative. Spleen: Normal in size and contour. RETROPERITONEUM Adrenals: Negative. Kidneys: Negative. Lymph nodes: No lymphadenopathy in the abdomen. BOWEL AND PERITONEUM Bowel: The included bowel appears unremarkable. Free air or fluid: None. VASCULATURE The abdominal aorta is normal in caliber. BONES/SOFT TISSUES No significant lesion. Impression: 1. No acute abnormality identified within the chest or abdomen. Thespleen appears normal in size and contour. 2. A water density cystic structure is seen involving the upper anteriormediastinum as described. This is nonspecific but differentialconsiderations include a duplication cyst, pericardial cyst, lymphangiomaor thymic cyst. This appears benign but further characterization withcontrast-enhanced MRI of the chest may be beneficial. Ordered By: CAREY SANTO Interpreted By: Ron Pyle MD, 01/06/2023 9:[address] Final Res ult documented in this encounter Visit Diagnoses Not on filedocumented in this encounter Additional Health Concerns Infection Onset Date Last Indicated Resolved Time MRSA 06/05/2021 06/05/2021 documented as of this encounter Care Teams Machine Ironer Relationship Specialty Start Date End Date Alejandro Blevins MD PCP - General FAMILY PRACTICE 12/10/19 documented as of this encounter
--- OUTSIDE RECORDS SUMMARY | 2024-07-11 05:40 | XMS_ITS | Encounter Summary ---
Author Organization [facility] Address [address] [place] [address]. [place] [address] [place] [address] Care Team Providers Care Housekeeping Room Attendant Name Role Phone Alejandro Blevins MD Primary Care Provider [phone] Reason for Visit * Reason Comments Infusion Therapy Lab Draw * Treatment/Therapy Plan Authorization (Routine) - Closed Specialty Diagnoses / Procedures Referred By Contac t Referred To Contact Diagnoses Anemia Procedures Roberta Evans MD [address] [place] [address] Phone: tel: fax: [facility] [place] [address] Phone: tel: Referral ID Status Reason Start Date Expiration Date Visits Re quested Visits Authorized [id number] Closed 05/18/2023 05/18/2024 1 1 Encounter Details Date Type Department Care Team (Latest Contact Info) Description 05/26/2023 11:30 AM CDT - 05/26/2023 11:59 PM CDT Hospital Encounter [facility] [place] [address] Rboerta Alex MD [address] [place] [address] Infusion Therapy; Lab Draw Discharge Disposition: Home or Self Care (Routine Discharge) Social History Tobacco Use Types Packs/Day Years Used Date Smoking Tobacco: Every Day Cigarettes Smokeless Tobacco: Never Alcohol Use Standard Drinks/Week Comments Not Currently 0 (1 standard drink = 0.6 oz pur e alcohol) Comments No Sex and Gender Information Value Date Recorded Sex Assigned at Not on file Legal Sex Female 11:30 PM PANTOGRAPH II ENGRAVER Gender Identity Female 11/10/2021 3:09 PM CDT Sexual Orientation Straight 11/10/2021 3: 09 PM CDT documented as of this encounter Last Filed Vital Signs Vital Sign Reading Time Taken Comments Blood Pressure 109/77 05/26/2023 11:53 AM CDT Pulse 78 05/26/2023 11:53 AM CDT Temperature 35.9 ??C (96.6 ??F) 05/26/2023 11:53 AM C DT Respiratory Rate 20 05/26/2023 11:53 AM CDT Oxygen Saturation 99% 05/26/2023 11:53 AM CDT Inhaled Oxygen Concentration - - Weight 79 kg (174 lb 2.6 oz) 05/26/2023 11:53 AM CDT Height - - Body Mass Index 30.85 10/28/2022 3:44 PM CDT documented in this encounter Functional Status * RETIRED Are you deaf or do you have serious difficulty hearing Answer Date of Assessment Author Status No 07/30/2020 10:48 PM PANTOGRAPH II ENGRAVER Acti ve * RETIRED Are you blind or do you have serious difficulty seeing, even when wearing glasses? Answer Date of Assessment Author Status No 07/30/2020 10:46 PM PANTOGRAPH II ENGRAVER Acti ve * Do you have serious [...] encounter Progress Notes * Cecilia Healy - 05/26/2023 11:30 AM CDTEncounter addended by: Cecilia Healy on: 05/30/2023 1:51 PM Actions taken: Charge Capture section accepted OGRAPH II ENGRAVER * Radha Novoa RN - 05/26/2023 11:30 AM CDT PATIENT ASSESSMENT: Admitted via: Ambulatory Admitted from: Home Planned procedure: iron infusion and lab draw Patient information verified by RADHA NOVOA RN. Barriers to learning: None Patient identity confirmed - Name and date of , Allergies Verified, teaching done/mutual goalsset and understood, Patient/S.O given able to voice fears/concerns, and Consent for planned procedure signed LOC: Alert Emotional: Calm Motor Activity: Gait steady Respiratory: Regular and even Circulatory: WDL Nutrition: Tolerated diet well Elimination: Voiding NURSING DIAGNOSIS: Risk of injury GOALS: Patient will be free from signs/symptoms of physical injury documented in this encounter Plan of Treatment Upcoming Encounters Date Type Department Care Team (Late st Contact Info) Description 09/25/2024 11:30 AM PANTOGRAPH II ENGRAVER Appointment [facility] [address] [place] [address] Roberta Alex MD [address] [place], [place] [id number] 09/25/2024 11:40 AM PANTOGRAPH II ENGRAVER [facility] [place] [address] Roberta Alex MD [address] [place], [place] [address] documented as of this encounter Procedures Procedure Name Priority Date/Time Associated Diagnosis Comments CBC W/DIFF AUTOMATED Routine 05/26/2023 11:55 AM CDT Iron deficiency anemia secondary to inadequate dietary iron intake documented in this encounter Results * (ABNORMAL) CBC W/DIFF AUTOMATED (05/26/2023 11:55 AM CDT) WBC 11.80(H) 4.00 - 10.80 x10'3/uL 05/26/2023 12:26 PM CDT [facility] RBC 4.75 4.10 - 5.40 x10'6/uL 05/26/2023 12:26 PM CDT [facility] HGB 13.7 12.0 - 16.0 G/DL 05/26/2023 12:26 PM CDT [facility] HCT 42.6 36.0 - 47.0 % 05/26/2023 12:26 PM CDT [facility] MCV 89.7 78.0 - 100.0 FL 05/26/2023 12:26 PM CDT [facility] MCH 28.8 27.0 - 31.0 PG 05/26/2023 12:26 PM CDT [facility] MCHC 32.2(L) 33.0 - 36.0 G/DL 05/26/2023 12:26 PM CDT [facility] RDW 12.0 11.5 - 14.5 % 05/26/2023 12:26 PM CDT [facility] PLT 43(L) 150 - 350 x10'3/uL 05/26/2023 12:26 PM CDT [facility] MPV RESULTS NOT AVAILABLE 7.4 - 10.4 FL 05/26/2023 12:26 PM CDT [facility] CBC COMMENT NORMAL REFERENCE RANGE NOT ESTABLISHED FOR THE PROPORTIONAL LEUKOCYTE DIFFERENTIAL. 05/26/2023 12:26 PM CDT [facility] NEUTROPHILS % 73.5 % 05/26/2023 1:19 PM CDT [facility] LYMPHOCYTES % 15.8 % 05/26/2023 1:19 PM CDT [facility] MONOCYTES % 4.2 % 05/26/2023 1:19 PM CDT [facility] EOSINOPHILS % 5.4 % 05/26/2023 1:19 PM CDT [facility] BASOPHILS % 0.8 % 05/26/2023 1:19 PM CDT [facility] IMMATURE GRANS % 0.3 % 05/26/20 1:19 PM CDT [facility] NRBC 0.0 % 05/26/2023 1:19 PM CDT [facility] ABS. NEUTROPHILS 8.67(H) 1.60 - 8.30 x10'3/uL 05/26/2023 1:19 PM CDT [facility] ABS. LYMPHOCYTES 1.86 0.80 - 4.70 x10'3/uL 05/26/2023 1:19 PM CDT [facility] ABS. MONOCYTES 0.50 0.00 - 1.50 x10'3/uL 05/26/2023 1:19 PM CDT [facility] ABS. EOSINOPHILS 0.64(H) 0.00 - 0.40 x10'3/uL 05/26/2023 1:19 PM CDT [facility] ABS. BASOPHILS 0.09 0.00 - 0.20 x10'3/uL 05/26/2023 1:19 PM CDT [facility] ABS. IMMATURE GRANULOCYTES 0.04(H) 0.00 - 0.03 x10'3/uL 05/26/2023 1:19 PM CDT [facility] ABS. NUCLEATED RBC'S 0.00 0.00 x10'3/uL 05/26/2023 1:19 PM CDT [facility] PLT MORPH. DECREASED 05/26/2023 1:19 PM CDT [facility] RBC MORPHOLOGY NORMAL 05/26/2023 1:19 PM CDT [facility] 05/26/2023 11:5 5 AM CDT us Roberta Alex MD LABORATORY Final Result [facility] [address] [place] [address], documented in this encounter Visit Diagnoses Diagnosis Anemia- Primary Anemia, unspecified Iron deficiency anemia secondary to inadequate dietary iron intake documented in this encounter Administered Medications Inactive Administered Medications - up to 3 most recent administrations Medication Order MAR Action Action Date Dose Rate Site iron sucrose (VENOFER) 200 mg in sodium chloride 0.9 % 100 mL IVPB 200 mg, Intravenous, at 400 mL/hr, Once, 1 dose, On Brittni 05/26/23 at 1200Indications:Anemia New Bag 05/26/2023 12:00 PM CDT 200 mg 400 mL/ hr documented in this encounter Additional Health Concerns Infection Onset Date Last Indicated Resolved Time MRSA 06/05/2021 06/05/2021 documented as of this encounter Care Teams Housekeeping Room Attendant Relationship Specialty Start Date End Date Alejandro Blevins MD PCP - General FAMILY PRACTICE 12/10/19 documented as of this encounter
--- OUTSIDE RECORDS SUMMARY | 2024-07-11 05:40 | XMS_ITS | Encounter Summary ---
Author Organization [facility] Address [address] [place] [address]. [place], [place] [address] [place] [address] Care Team Providers Care Yarder Boss Name Role Phone Alejandro Blevins MD Primary Care Provider [phone] Encounter Details Date Type Department Care Team (Latest Contact Info) Description 04/07/2023 Travel Social History Tobacco Use Types Packs/Day Years Used Date Smoking Tobacco: Every Day Cigarettes Smokeless Tobacco: Never Alcohol Use Standard Drinks/Week Comments Not Currently 0 (1 standard drink = 0.6 oz pur e alcohol) Comments No Sex and Gender Information Value Date Recorded Sex Assigned at Not on file Legal Sex Female 11:30 PM TRANSPLANT REGISTERED NURSE Gender Identity Female 11/10/2021 3:09 PM CDT Sexual Orientation Straight 11/10/2021 3: 09 PM CDT documented as of this encounter Functional Status * RETIRED Are you deaf or do you have serious difficulty hearing Answer Date of Assessment Author Status No 07/30/2020 10:48 PM TRANSPLANT REGISTERED NURSE Acti ve * RETIRED Are you blind or do you have serious difficulty seeing, even when wearing glasses? Answer Date of Assessment Author Status No 07/30/2020 10:46 PM TRANSPLANT REGISTERED NURSE Acti ve * Do you have serious difficulty walking or climbing stairs? Answer Date of Assessment Author Status No 07/30/2020 10:46 PM TRANSPLANT REGISTERED NURSE Nella Le RN Active * Do you have difficulty dressing or bathing? Answer Date of Assessment Author Status No 07/30/2020 10:46 PM TRANSPLANT REGISTERED NURSE Nella Le RN Active * Because of a physical, mental, or emotional condition, do you have difficulty doing errands alone such as visiting a doctor's office or shopping? Answer Date of Assessment Author Status No 07/30/2020 10:46 PM TRANSPLANT REGISTERED NURSE Nella Le RN Active documented as of this encounter Mental Status * Because of a physical, mental, or emotional condition, do you have serious difficulty concentrating, remembering, or making decisions? Answer Entry Date Author Status No 07/30/2020 10:46 PM TRANSPLANT REGISTERED NURSE Nella Le RN Active documented in this encounter Plan of Treatment Upcoming Encounters Date Type Department Care Team (Late st Contact Info) Description 09/25/2024 11:30 AM TRANSPLANT REGISTERED NURSE Appointment [facility] [address] [place] [address] Roberta Alex MD [address] [place] [address] 09/25/2024 11:40 AM TRANSPLANT REGISTERED NURSE Office Visit [facility] [address] [place] [address] Roberta Alex MD [address] [place] [address] documented as of this encounter Visit Diagnoses Not on filedocumented in this encounter Additional Health Concerns Infection Onset Date Last Indicated Resolved Time MRSA 06/05/2021 06/05/2021 documented as of this encounter Care Teams Yarder Boss Relationship Specialty Start Date End Date Alejandro Blevins MD PCP - General FAMILY PRACTICE 12/10/19 documented as of this encounter
--- OUTSIDE RECORDS SUMMARY | 2024-07-11 05:40 | XMS_ITS | Encounter Summary ---
Author Organization [facility] Address [facility] [place] [address] [place] [address] Care Team Providers Care Christmas Tree Grower Name Role Phone Alejandro Blevins MD Primary Care Provider [phone] Encounter Details Date Type Department Care Team (Late st Contact Info) Description 01/13/2023 Orders Only [address] [place] [address] Roberta Alex MD [address] [place] [address] Social History Tobacco Use Types Packs/Day Years Used Date Smoking Tobacco: Every Day Cigarettes Smokeless Tobacco: Never Alcohol Use Standard Drinks/Week Comments Not Currently 0 (1 standard drink = 0.6 oz pur e alcohol) Comments No Sex and Gender Information Value Date Recorded Sex Assigned at Not on file Legal Sex Female 11:30 PM SCALER Gender Identity Female 11/10/2021 3:09 PM CDT [...] Assessment Author Status No 07/30/2020 10:48 PM SCALER Acti ve * RETIRED Are you blind or do you have serious difficulty seeing, even when wearing glasses? Answer Date of Assessment Author Status No 07/30/2020 10:46 PM SCALER Acti ve * Do you have serious [...] st Contact Info) Description 09/25/2024 11:30 AM SCALER Appointment [facility] [address] [place] [address] Roberta Alex MD [address] [place] [address] 09/25/2024 11:40 AM SCALER Office Visit [facility] [address] [place] [address] Roberta Alex MD [address] [place] [address] documented as of this encounter Visit Diagnoses Diagnosis Abnormal CT scan, chest- Primary Nonspecific (abnormal) findings on radiological and other examination of other intrathoracic organs documented in this encounter Additional Health Concerns Infection Onset Date Last Indicated Resolved Time MRSA 06/05/2021 06/05/2021 documented as of this encounter Care Teams Christmas Tree Grower Relationship Specialty Start Date End Date Alejandro Blevins MD PCP - General FAMILY PRACTICE 12/10/19 documented as of this encounter
--- OUTSIDE RECORDS SUMMARY | 2024-07-11 05:40 | XMS_ITS | Encounter Summary ---
Author Organization [facility] Address [address] [place] [address]. [place], [place] [address] [place] [address] Care Team Providers Care Newspaper Photojournalist Name Role Phone Alejandro Blevins MD Primary Care Provider [phone] Encounter Details Date Type Department Care Team (Latest Contact Info) Description 04/11/2023 Travel Social History Tobacco Use Types Packs/Day Years Used Date Smoking Tobacco: Every Day Cigarettes Smokeless Tobacco: Never Alcohol Use Standard Drinks/Week Comments Not Currently 0 (1 standard drink = 0.6 oz pur e alcohol) Comments No Sex and Gender Information Value Date Recorded Sex Assigned at Not on file Legal Sex Female 11:30 PM BRICK TESTER Gender Identity Female 11/10/2021 3:09 PM CDT Sexual Orientation Straight 11/10/2021 3: 09 PM CDT documented as of this encounter Functional Status * RETIRED Are you deaf or do you have serious difficulty hearing Answer Date of Assessment Author Status No 07/30/2020 10:48 PM BRICK TESTER Acti ve * RETIRED Are you blind or do you have serious difficulty seeing, even when wearing glasses? Answer Date of Assessment Author Status No 07/30/2020 10:46 PM BRICK TESTER Acti ve * Do you have serious difficulty walking or climbing stairs? Answer Date of Assessment Author Status No 07/30/2020 10:46 PM BRICK TESTER Nella Le RN Active * Do you have difficulty dressing or bathing? Answer Date of Assessment Author Status No 07/30/2020 10:46 PM BRICK TESTER Nella Le RN Active * Because of a physical, mental, or emotional condition, do you have difficulty doing errands alone such as visiting a doctor's office or shopping? Answer Date of Assessment Author Status No 07/30/2020 10:46 PM BRICK TESTER Nella Le RN Active documented as of this encounter Mental Status * Because of a physical, mental, or emotional condition, do you have serious difficulty concentrating, remembering, or making decisions? Answer Entry Date Author Status No 07/30/2020 10:46 PM BRICK TESTER Nella Le RN Active documented in this encounter Plan of Treatment Upcoming Encounters Date Type Department Care Team (Late st Contact Info) Description 09/25/2024 11:30 AM BRICK TESTER Appointment [facility] [address] [place] [address] Roberta Alex MD [address] [place] [address] 09/25/2024 11:40 AM BRICK TESTER Office Visit [facility] [address] [address] Roberta Alex MD [address] [place] [address] documented as of this encounter Visit Diagnoses Not on filedocumented in this encounter Additional Health Concerns Infection Onset Date Last Indicated Resolved Time MRSA 06/05/2021 06/05/2021 documented as of this encounter Care Teams Newspaper Photojournalist Relationship Specialty Start Date End Date Alejandro Blevins MD PCP - General FAMILY PRACTICE 12/10/19 documented as of this encounter
--- OUTSIDE RECORDS SUMMARY | 2024-07-11 05:40 | XMS_ITS | Encounter Summary ---
Author Organization [facility] Address [address] [place] [address]. [place] [address] [place] [address] Care Team Providers Care Cloth Carrier Name Role Phone Alejandro Blevins MD Primary Care Provider Encounter Details Date Type Department Care Team (Latest Contact Info) Description 06/02/2023 11:37 AM BRICK CLEANER - 06/02/2023 11:59 PM [facility] Encounter [address] [place] [address] Roberta Alex MD [address] [place] [address] Discharge Disposition: Home or Self Care (Routine Discharge) Social History Tobacco Use Types Packs/Day Years Used Date Smoking Tobacco: Every Day Cigarettes Smokeless Tobacco: Never Alcohol Use Standard Drinks/Week Comments Not Currently 0 (1 standard drink = 0.6 oz pur e alcohol) Comments No Sex and Gender Information Value Date Recorded Sex Assigned at Not on file Legal Sex Female 11:30 PM BRICK CLEANER Gender Identity Female 11/10/2021 3:09 PM CDT Sexual Orientation Straight 11/10/2021 3: 09 PM CDT documented as of this encounter Functional Status * RETIRED Are you deaf or do you have serious difficulty hearing Answer Date of Assessment Author Status No 07/30/2020 10:48 PM BRICK CLEANER Acti ve * RETIRED Are you blind or do you have serious difficulty seeing, even when wearing glasses? Answer Date of Assessment Author Status No 07/30/2020 10:46 PM BRICK CLEANER Acti ve * Do you have serious [...] Contact Info) Description 09/25/2024 11:30 AM BRICK CLEANER Appointment [facility] [address] [place] [address] Roberta Alex MD [address] [place] [address] 09/25/2024 11:40 AM BRICK CLEANER Office Visit [facility] [place] [id number] [place] [address] Roberta Alex MD [address] [place] [address] documented as of this encounter Procedures Procedure Name Priority Date/Time Associated Diagnosis Comments CBC W/DIFF AUTOMATED Routine 06/02/2023 11:45 AM BRICK CLEANER Iron deficiency anemia secondary to inadequate dietary iron intake documented in this encounter Results * (ABNORMAL) CBC W/DIFF AUTOMATED (06/02/2023 11:45 AM BRICK CLEANER) WBC 11.18(H) 4.00 - 10.80 x10'3/uL 06/02/2023 12:13 PM BRICK CLEANER [facility] RBC 4.54 4.10 - 5.40 x10'6/uL 06/02/2023 12:13 PM [facility] HGB 13.1 12.0 - 16.0 G/DL 06/02/2023 12:13 PM [facility] HCT 41.1 36.0 - 47.0 % 06/02/2023 12:13 PM [facility] MCV 90.5 78.0 - 100.0 FL 06/02/2023 12:13 PM [facility] MCH 28.9 27.0 - 31.0 PG 06/02/2023 12:13 PM [facility] MCHC 31.9(L) 33.0 - 36.0 G/DL 06/02/2023 12:13 PM [facility] RDW 12.1 11.5 - 14.5 % 06/02/2023 12:13 PM [facility] PLT 51(L) 150 - 350 x10'3/uL 06/02/2023 12:13 PM [facility] MPV RESULTS NOT AVAILABLE 7.4 - 10.4 FL 06/02/2023 12:13 PM [facility] CBC COMMENT NORMAL REFERENCE RANGE NOT ESTABLISHED FOR THE PROPORTIONAL LEUKOCYTE DIFFERENTIAL. 06/02/2023 12:13 PM BRICK CLEANER [facility] NEUTROPHILS % 68.0 % 06/02/2023 12:46 PM BRICK CLEANER [facility] LYMPHOCYTES % 18.5 % 06/02/2023 12:46 PM BRICK CLEANER [facility] MONOCYTES % 5.4 % 06/02/2023 12:46 PM BRICK CLEANER [facility] EOSINOPHILS % 6.6 % 06/02/2023 12:46 PM BRICK CLEANER [facility] BASOPHILS % 1.1 % 06/02/2023 12:46 PM BRICK CLEANER [facility] IMMATURE GRANS % 0.4 % 06/02/20 12:46 PM BRICK CLEANER [facility] NRBC 0.0 % 06/02/2023 12:46 PM BRICK CLEANER [facility] ABS. NEUTROPHILS 7.61 1.60 - 8.30 x10'3/uL 06/02/2023 12:46 PM BRICK CLEANER [facility] ABS. LYMPHOCYTES 2.07 0.80 - 4.70 x10'3/uL 06/02/2023 12:46 PM BRICK CLEANER [facility] ABS. MONOCYTES 0.60 0.00 - 1.50 x10'3/uL 06/02/2023 12:46 PM [facility] ABS. EOSINOPHILS 0.74(H) 0.00 - 0.40 x10'3/uL 06/02/2023 12:46 PM [facility] ABS. BASOPHILS 0.12 0.00 - 0.20 x10'3/uL 06/02/2023 12:46 PM [facility] ABS. IMMATURE GRANULOCYTES 0.04(H) 0.00 - 0.03 x10'3/uL 06/02/2023 12:46 PM [facility] ABS. NUCLEATED RBC'S 0.00 0.00 x10'3/uL 06/02/2023 12:46 PM BRICK CLEANER [facility] PLT MORPH. DECREASED 06/02/2023 12:46 PM [facility] RBC MORPHOLOGY NORMAL 06/02/2023 12:46 PM BRICK CLEANER [facility] 06/02/2023 11:4 5 AM BRICK CLEANER Roberta Alex MD LABORATORY Final Result [facility] [address] [phone] documented in this encounter Visit Diagnoses Diagnosis Iron deficiency anemia secondary to inadequate dietary iron intake documented in this encounter Additional Health Concerns Infection Onset Date Last Indicated Resolved Time MRSA 06/05/2021 06/05/2021 documented as of this encounter Care Teams Cloth Carrier Relationship Specialty Start Date End Date Alejandro Blevins MD PCP - General FAMILY PRACTICE 12/10/19 documented as of this encounter
--- OUTSIDE RECORDS SUMMARY | 2024-07-11 05:41 | XMS_ITS | Encounter Summary ---
Author Organization [facility] Address [address] [place] [address]. [place], [place] [address] [place] [address] Care Team Providers Care Parachute Manufacturing Supervisor Name Role Phone Alejandro Blevins MD Primary Care Provider [phone] Encounter Details Date Type Department Care Team (Latest Contact Info) Description 10/22/2022 Travel Social History Tobacco Use Types Packs/Day Years Used Date Smoking Tobacco: Every Day Cigarettes Smokeless Tobacco: Never Alcohol Use Standard Drinks/Week Comments Not Currently 0 (1 standard drink = 0.6 oz pur e alcohol) Comments No Sex and Gender Information Value Date Recorded Sex Assigned at Not on file Legal Sex Female 11:30 PM SEWING PATTERN LAYOUT TECHNICIAN Gender Identity Female 11/10/2021 3:09 PM CDT Sexual Orientation Straight 11/10/2021 3: 09 PM CDT COVID-19 Exposure Response Date Recorded In the last 10 days, have yo u been in contact with someone who was confirmed or suspected to have Coronavirus/COVID-19? No / Unsure 10/22/2022 9:52 AM CDT documented as of this encounter Functional Status * RETIRED Are you deaf or do you have serious difficulty hearing Answer Date of Assessment Author Status No 07/30/2020 10:48 PM SEWING PATTERN LAYOUT TECHNICIAN Acti ve * RETIRED Are you blind or do you have serious difficulty seeing, even when wearing glasses? Answer Date of Assessment Author Status No 07/30/2020 10:46 PM SEWING PATTERN LAYOUT TECHNICIAN Acti ve * Do you have serious difficulty walking or climbing stairs? Answer Date of Assessment Author Status No 07/30/2020 10:46 PM SEWING PATTERN LAYOUT TECHNICIAN Nella Le RN Active * Do you have difficulty dressing or bathing? Answer Date of Assessment Author Status No 07/30/2020 10:46 PM SEWING PATTERN LAYOUT TECHNICIAN Nella Le RN Active * Because of a physical, mental, or emotional condition, do you have difficulty doing errands alone such as visiting a doctor's office or shopping? Answer Date of Assessment Author Status No 07/30/2020 10:46 PM SEWING PATTERN LAYOUT TECHNICIAN Nella Le RN Active documented as of this encounter Mental Status * Because of a physical, mental, or emotional condition, do you have serious difficulty concentrating, remembering, or making decisions? Answer Entry Date Author Status No 07/30/2020 10:46 PM SEWING PATTERN LAYOUT TECHNICIAN Nella Le RN Active documented in this encounter Plan of Treatment Upcoming Encounters Date Type Department Care Team (Late st Contact Info) Description 09/25/2024 11:30 AM SEWING PATTERN LAYOUT TECHNICIAN Appointment [facility] [address] [place] [address] Roberta Alex MD [address] [place] [address] 09/25/2024 11:40 AM SEWING PATTERN LAYOUT TECHNICIAN Office Visit [facility] [address] [place] [address] Roberta Alex MD [address] [place] [address] documented as of this encounter Visit Diagnoses Not on filedocumented in this encounter Additional Health Concerns Infection Onset Date Last Indicated Resolved Time MRSA 06/05/2021 06/05/2021 documented as of this encounter Care Teams Parachute Manufacturing Supervisor Relationship Specialty Start Date End Date Alejandro Blevins MD PCP - General FAMILY PRACTICE 12/10/19 documented as of this encounter
--- OUTSIDE RECORDS SUMMARY | 2024-07-11 05:41 | XMS_ITS | Encounter Summary ---
Author Organization [facility] Address [address] [place] [address]. [place] [address] [place] [address] Care Team Providers Care Administrative Dietitian Name Role Phone Alejandro Blevins MD Primary Care Provider Reason for Visit * Reason Onset Date Comments Information 12/10/2022 Encounter Details Date Type Department Care Team ([facility] Contact Info) Description 12/10/[address] [place] [address] Roberta Alex MD [address] [place] [address] Information Social History Tobacco Use Types Packs/Day Years Used Date Smoking Tobacco: Every Day Cigarettes Smokeless Tobacco: Never Alcohol Use Standard Drinks/Week Comments Not Currently 0 (1 standard drink = 0.6 oz pur e alcohol) Comments No Sex and Gender Information Value Date Recorded Sex Assigned at Not on file Legal Sex Female 11:30 PM ASSOCIATE CIVIL ENGINEER Gender Identity Female 11/10/2021 3:09 PM CDT Sexual Orientation Straight 11/10/2021 3: 09 PM CDT COVID-19 Exposure Response Date Recorded In the last 10 days, have yo u been in contact with someone who was confirmed or suspected to have Coronavirus/COVID-19? No / Unsure 12/07/2022 10:40 AM CDT documented as of this encounter Functional Status * RETIRED Are you deaf or do you have serious difficulty hearing Answer Date of Assessment Author Status No 07/30/2020 10:48 PM ASSOCIATE CIVIL ENGINEER Acti ve * RETIRED Are you blind or do you have serious difficulty seeing, even when wearing glasses? Answer Date of Assessment Author Status No 07/30/2020 10:46 PM ASSOCIATE CIVIL ENGINEER Acti ve * Do you have [...] documented in this encounter Progress Notes * Tejinder Berg RN - 12/10/2022 10:16 AM CDT I called and left message for patient to give us a call back as she has papers that need her signature before we can fax them. documented in this encounter Plan of Treatment Upcoming Encounters Date Type Department Care Team (Late st Contact Info) Description 09/25/2024 11:30 AM ASSOCIATE CIVIL ENGINEER Appointment [facility] [place] [address] Roberta Alex MD [address] [place] [address] 09/25/2024 11:40 AM ASSOCIATE CIVIL ENGINEER Office Visit [facility] [place] [address] Roberta Alex MD [address] [place] [address] documented as of this encounter Visit Diagnoses Not on filedocumented in this encounter Additional Health Concerns Infection Onset Date Last Indicated Resolved Time MRSA 06/05/2021 06/05/2021 documented as of this encounter Care Teams Administrative Dietitian Relationship Specialty Start Date End Date Alejandro Blevins MD PCP - General FAMILY PRACTICE 12/10/19 documented as of this encounter
--- OUTSIDE RECORDS SUMMARY | 2024-07-11 05:41 | XMS_ITS | Encounter Summary ---
Author Organization [facility] Address [address] [place] [address]. [place] [address] [place] [address] Care Team Providers Care Meat Apprentice Name Role Phone Alejandro Blevins MD Primary Care Provider [phone] Encounter Details Date Type Department Care Team (Latest Contact Info) Description 12/27/2022 12:20 PM CDT Hospital Encounter [facility] [address] [facility] [place] [address] Carey Pang, APNP [address] [place] [id number] Discharge Disposition: Home or Self Care (Routine Discharge) Social History Tobacco Use Types Packs/Day Years Used Date Smoking Tobacco: Every Day Cigarettes Smokeless Tobacco: Never Alcohol Use Standard Drinks/Week Comments Not Currently 0 (1 standard drink = 0.6 oz pur e alcohol) Comments No Sex and Gender Information Value Date Recorded Sex Assigned at Not on file Legal Sex Female 11:30 PM WIND TUNNEL ENGINEER Gender Identity Female 11/10/2021 3:09 PM CDT Sexual Orientation Straight 11/10/2021 3: 09 PM CDT COVID-19 Exposure Response Date Recorded In the last 10 days, have yo u been in contact with someone who was confirmed or suspected to have Coronavirus/COVID-19? No / Unsure 12/27/2022 12:20 PM CDT documented as of this encounter Functional Status * RETIRED Are you deaf or do you have serious difficulty hearing Answer Date of Assessment Author Status No 07/30/2020 10:48 PM WIND TUNNEL ENGINEER Acti ve * RETIRED Are you blind or do you have serious difficulty seeing, even when wearing glasses? Answer Date of Assessment Author Status No 07/30/2020 10:46 PM WIND TUNNEL ENGINEER Acti ve * Do you have [...] st Contact Info) Description 09/25/2024 11:30 AM WIND TUNNEL ENGINEER Appointment [facility] [place] [address] Roberta Alex MD [address] [place] [address] 09/25/2024 11:40 AM WIND TUNNEL ENGINEER Office Visit [facility] [place] [address] [address] Roberta Alex MD [address] [place] [address] documented as of this encounter Procedures Procedure Name Priority Date/Time Associated Diagnosis Comments CBC W/DIFF AUTOMATED Routine 12/27/2022 12:32 PM CDT Thrombocytopenia documented in this encounter Results * (ABNORMAL) CBC W/DIFF AUTOMATED (12/27/2022 12:32 PM CDT) WBC 11.19(H) 4.00 - 10.80 x10'3/uL 12/27/2022 1:21 PM CDT [facility] RBC 4.82 4.10 - 5.40 x10'6/uL 12/27/2022 1:21 PM CDT [facility] HGB 13.9 12.0 - 16.0 G/DL 12/27/2022 1:21 PM CDT [facility] HCT 43.6 36.0 - 47.0 % 12/27/2022 1:21 PM CDT [facility] MCV 90.5 78.0 - 100.0 FL 12/27/2022 1:21 PM CDT [facility] MCH 28.8 27.0 - 31.0 PG 12/27/2022 1:21 PM CDT [facility] MCHC 31.9(L) 33.0 - 36.0 G/DL 12/27/2022 1:21 PM CDT [facility] RDW 12.7 11.5 - 14.5 % 12/27/2022 1:21 PM CDT [facility] PLT 31(L) 150 - 350 x10'3/uL 12/27/2022 1:21 PM CDT [facility] Comment: CALLED TO [facility] AT 1320 READ BACK AND VERIFIED MPV RESULTS NOT AVAILABLE 7.4 - 10.4 FL 12/27/2022 1:21 PM CDT [facility] CBC COMMENT NORMAL REFERENCE RANGE NOT ESTABLISHED FOR THE PROPORTIONAL LEUKOCYTE DIFFERENTIAL. 12/27/2022 1:21 PM CDT [facility] NEUTROPHILS % 72.8 % 12/27/2022 1:29 PM CDT [facility] LYMPHOCYTES % 16.5 % 12/27/2022 1:29 PM CDT [facility] MONOCYTES % 4.8 % 12/27/2022 1:29 PM CDT [facility] EOSINOPHILS % 5.0 % 12/27/2022 1:29 PM CDT [facility] BASOPHILS % 0.7 % 12/27/2022 1:29 PM CDT [facility] IMMATURE GRANS % 0.2 % 12/28/19 1:29 PM CDT [facility] NRBC 0.0 % 12/27/2022 1:29 PM CDT [facility] ABS. NEUTROPHILS 8.14 1.60 - 8.30 x10'3/uL 12/27/2022 1:29 PM CDT [facility] ABS. LYMPHOCYTES 1.85 0.80 - 4.70 x10'3/uL 12/27/2022 1:29 PM CDT [facility] ABS. MONOCYTES 0.54 0.00 - 1.50 x10'3/uL 12/27/2022 1:29 PM CDT [facility] ABS. EOSINOPHILS 0.56(H) 0.00 - 0.40 x10'3/uL 12/27/2022 1:29 PM CDT [facility] ABS. BASOPHILS 0.08 0.00 - 0.20 x10'3/uL 12/27/2022 1:29 PM CDT [facility] ABS. IMMATURE GRANULOCYTES 0.02 0.00 - 0.03 x10'3/uL 12/27/2022 1:29 PM CDT [facility] ABS. NUCLEATED RBC'S 0.00 0.00 x10'3/uL 12/27/2022 1:29 PM CDT [facility] PLT MORPH. DECREASED 12/27/2022 1:29 PM CDT [facility] RBC MORPHOLOGY NORMAL 12/27/2022 1:29 PM CDT [facility] 12/27/2022 12:3 2 PM CDT us Carey [facility] Final Res ult [facility] [address] [place] [address], documented in this encounter Visit Diagnoses Diagnosis Thrombocytopenia (CMS/HCC) Thrombocytopenia, unspecified documented in this encounter Additional Health Concerns Infection Onset Date Last Indicated Resolved Time MRSA 06/05/2021 06/05/2021 documented as of this encounter Care Teams Meat Apprentice Relationship Specialty Start Date End Date Alejandro Blevins MD PCP - General FAMILY PRACTICE 12/10/19 documented as of this encounter
--- OUTSIDE RECORDS SUMMARY | 2024-07-11 05:41 | XMS_ITS | Encounter Summary ---
Author Organization [facility] Address [address] [place] [address]. [place] [address] [place] [address] Care Team Providers Care Oil Well Logger Name Role Phone Alejandro Blevins MD Primary Care Provider [phone] Encounter Details Date Type Department Care Team (Latest Contact Info) Description 01/26/2022 11:54 AM CDT - 01/26/2022 11:59 PM CDT Hospital Encounter [address] [place] [address] Roberta Alex MD [address] [place] [address] Discharge Disposition: Home or Self Care (Routine Discharge) Social History Tobacco Use Types Packs/Day Years Used Date Smoking Tobacco: Every Day Cigarettes Smokeless Tobacco: Never Alcohol Use Standard Drinks/Week Comments Not Currently 0 (1 standard drink = 0.6 oz pur e alcohol) Comments No Sex and Gender Information Value Date Recorded Sex Assigned at Not on file Legal Sex Female 11:30 PM PROFESSIONAL NURSING TUTOR Gender Identity Female 11/10/2021 3:09 PM CDT Sexual Orientation Straight 11/10/2021 3: 09 PM CDT COVID-19 Exposure Response Date Recorded In the last 10 days, have yo u been in contact with someone who was confirmed or suspected to have Coronavirus/COVID-19? No / Unsure 01/26/2022 11:50 AM CDT documented as of this encounter Functional Status * RETIRED Are you deaf or do you have serious difficulty hearing Answer Date of Assessment Author Status No 07/30/2020 10:48 PM PROFESSIONAL NURSING TUTOR Acti ve * RETIRED Are you blind or do you have serious difficulty seeing, even when wearing glasses? Answer Date of Assessment Author Status No 07/30/2020 10:46 PM PROFESSIONAL NURSING TUTOR Acti ve * Do you have [...] st Contact Info) Description 09/25/2024 11:30 AM PROFESSIONAL NURSING TUTOR Appointment [facility] [address] [place] [address] Roberta Alex MD [address] [place] [address] 09/25/2024 11:40 AM PROFESSIONAL NURSING TUTOR Office Visit [facility] [place] [address] [place] [address] Roberta Alex MD [address] [place] [address] documented as of this encounter Procedures Procedure Name Priority Date/Time Associated Diagnosis Comments BLOOD BANK - SPECIMEN HOLD Routine 01/26/2022 12:00 PM CDT Thrombocytopenia CBC W/DIFF AUTOMATED Routine 01/26/2022 12:00 PM CDT Thrombocytopenia documented in this encounter Results * Blood Bank - Specimen Hold (01/26/2022 12:00 PM CDT) SAMPLE LAB COLLECTED SPECIMEN 01/26/2022 11:55 AM CDT [facility] 01/26/2022 12:0 0 PM CDT us Roberta Alex MD BLOOD BANK TEST ORDERABLES Fin al Result [facility] [address] [place] [address], * (ABNORMAL) CBC W/DIFF AUTOMATED (01/26/2022 12:00 PM CDT) WBC 8.4 4.0 - 10.8 x10'3/uL 01/26/2022 12:20 PM CDT [facility] RBC 4.32 4.10 - 5.40 x10'6/uL 01/26/2022 12:20 PM CDT [facility] HGB 12.7 12.0 - 16.0 G/DL 01/26/2022 12:20 PM CDT [facility] HCT 40.9 36.0 - 47.0 % 01/26/2022 12:20 PM CDT [facility] MCV 94.7 78.0 - 100.0 FL 01/26/2022 12:20 PM CDT [facility] MCH 29.4 27.0 - 31.0 PG 01/26/2022 12:20 PM CDT [facility] MCHC 31.1(L) 33.0 - 36.0 G/DL 01/26/2022 12:20 PM CDT [facility] RDW 13.2 11.5 - 14.5 % 01/26/2022 12:20 PM CDT [facility] PLT 85(L) 150 - 350 x10'3/uL 01/26/2022 12:20 PM CDT [facility] MPV 14.4(H) 7.4 - 10.4 FL 01/26/2022 12:20 PM CDT [facility] DIFFERENTIAL COMMENT NORMAL REFERENCE RANGE NOT ESTABLISHED FOR THE PROPORTIONAL LEUKOCYTE DIFFERENTIAL. 01/26/2022 12:20 PM CDT [facility] SEG NEUTROPHILS 71.5 % 12:45 PM CDT [facility] LYMPHOCYTES 17.5 % 01/26/2022 12:45 PM CDT [facility] MONOCYTES 5.8 % 01/26/2022 12:45 PM CDT [facility] EOSINOPHILS 4.1 % 01/26/2022 12:45 PM CDT [facility] BASOPHILS 0.6 % 01/26/2022 12:45 PM CDT [facility] IMMATURE GRANS % 0.5 % 01/27/20 12:45 PM CDT [facility] NRBC 0.0 % 01/26/2022 12:45 PM CDT [facility] ABS. NEUTROPHILS 6.01 1.60 - 8.30 x10'3/uL 01/26/2022 12:45 PM CDT [facility] ABS. LYMPHOCYTES 1.47 0.80 - 4.70 x10'3/uL 01/26/2022 12:45 PM CDT [facility] ABS. MONOCYTES 0.49 0.00 - 1.50 x10'3/uL 01/26/2022 12:45 PM CDT [facility] ABS. EOSINOPHILS 0.34 0.00 - 0.40 x10'3/uL 01/26/2022 12:45 PM CDT [facility] ABS. BASOPHILS 0.05 0.00 - 0.20 x10'3/uL 01/26/2022 12:45 PM CDT [facility] ABS. IMMATURE GRANULOCYTES 0.04(H) 0.00 - 0.03 x10'3/uL 01/26/2022 12:45 PM CDT [facility] ABS. NUCLEATED RBC'S 0.00 0.00 x10'3/uL 01/26/2022 12:45 PM CDT [facility] PLT MORPH. DECREASED 01/26/2022 12:45 PM CDT [facility] RBC MORPHOLOGY NORMAL 01/26/2022 12:45 PM CDT [facility] 01/26/2022 12:0 0 PM CDT us Roberta Alex MD LABORATORY Final Result [facility] [address] [place] [address], documented in this encounter Visit Diagnoses Diagnosis Thrombocytopenia (CMS/HCC) Thrombocytopenia, unspecified documented in this encounter Additional Health Concerns Infection Onset Date Last Indicated Resolved Time MRSA 06/05/2021 06/05/2021 documented as of this encounter Care Teams Oil Well Logger Relationship Specialty Start Date End Date Alejandro Blevins MD PCP - General FAMILY PRACTICE 12/10/19 documented as of this encounter
--- OUTSIDE RECORDS SUMMARY | 2024-07-11 05:41 | XMS_ITS | Encounter Summary ---
Author Organization [facility] Address [facility] [place] [address] [place] [address] Care Team Providers Care Sales Service Technician Name Role Phone Alejandro Blevins MD Primary Care Provider [phone] Encounter Details Date Type Department Care Team (Late st Contact Info) Description 10/19/2021 Orders Only [address] [place] [address] Roberta Alex MD [address] [place] [address] Social History Tobacco Use Types Packs/Day Years Used Date Smoking Tobacco: Every Day Cigarettes Smokeless Tobacco: Never Alcohol Use Standard Drinks/Week Comments Not Currently 0 (1 standard drink = 0.6 oz pur e alcohol) Comments No Sex and Gender Information Value Date Recorded Sex Assigned at Not on file Legal Sex Female 11:30 PM ONCOLOGY PHARMACIST Gender Identity Female 11/10/2021 3:09 PM CDT Sexual Orientation Straight 11/10/2021 3: 09 PM CDT COVID-19 Exposure Response Date Recorded In the last 10 days, have yo u been in contact with someone who was confirmed or suspected to have Coronavirus/COVID-19? No / Unsure 09/26/2021 12:13 AM ONCOLOGY PHARMACIST documented as of this encounter Functional Status * RETIRED Are you deaf or do you have serious difficulty hearing Answer Date of Assessment Author Status No 07/30/2020 10:48 PM ONCOLOGY PHARMACIST Acti ve * RETIRED Are you blind or do you have serious difficulty seeing, even when wearing glasses? Answer Date of Assessment Author Status No 07/30/2020 10:46 PM ONCOLOGY PHARMACIST Acti ve * Do you have serious [...] Date Type Department Care Team (Late [facility] Info) Description 09/25/2024 11:30 AM ONCOLOGY PHARMACIST Appointment [facility] [facility] [place] [address] Roberta Alex MD [address] [place] [address] 09/25/2024 11:40 AM ONCOLOGY PHARMACIST Office Visit [facility] [address] [place] [address] Roberta Alex MD [address] [place] [address] documented as of this encounter Results * FERRITIN (11/17/2021 12:05 PM CDT) FERRITIN 13.4 8 - 252 NG/ML 11/17/2021 12:40 PM CDT [facility] 11/17/2021 12:0 5 PM CDT Roberta Alex MD LABORATORY Final Result [facility] [address] [place] [address], * VITAMIN B-12 (11/17/2021 12:05 PM CDT) Pathologist [facility] [place] VITAMIN B12 S/P/B 332 193 - 986 PG/ML 11/18/2021 2:04 PM CDT [facility] 11/17/2021 12:0 5 PM CDT Roberta Alex MD LABORATORY Final Result [facility] [address] [place] [address], [place] [phone] [id number] * (ABNORMAL) IRON SATURATION PNL (FE/TIBC/SAT) (11/17/2021 12:05 PM CDT) [facility] IRON 40(L) 50 - 170 MCG/DL 11/17/2021 12:39 PM CDT [facility] IRON BINDING CAPACITY 352 250 - 450 MCG/DL 11/17/2021 12:39 PM CDT [facility] IRON SATURATION 11 % 12:39 PM CDT [facility] Comment:REFERENCE RANGE NOT ESTABLISHED 11/17/2021 12:0 5 PM CDT us Roberta Alex MD LABORATORY Final Result [facility] [address] [place] [address], * (ABNORMAL) CBC W/DIFF AUTOMATED (11/17/2021 12:05 PM CDT) Pathologist [facility] [place] WBC 13.5(H) 4.0 - 10.8 x10'3/uL 11/17/2021 1:03 PM CDT [facility] RBC 4.64 4.10 - 5.40 x10'6/uL 11/17/2021 1:03 PM CDT [facility] HGB 13.4 12.0 - 16.0 G/DL 11/17/2021 1:03 PM CDT [facility] HCT 42.5 36.0 - 47.0 % 11/17/2021 1:03 PM CDT [facility] MCV 91.6 78.0 - 100.0 FL 11/17/2021 1:03 PM CDT [facility] MCH 28.9 27.0 - 31.0 PG 11/17/2021 1:03 PM CDT [facility] MCHC 31.5(L) 33.0 - 36.0 G/DL 11/17/2021 1:03 PM CDT [facility] RDW 14.2 11.5 - 14.5 % 11/17/2021 1:03 PM CDT [facility] PLT 63(L) 150 - 350 x10'3/uL 11/17/2021 1:03 PM CDT [facility] MPV NOT AVAILABLE 7.4 - 10.4 FL 11/17/2021 2:41 PM CDT [facility] SEG NEUTROPHILS 81 % 1:07 PM CDT [facility] LYMPHOCYTES 11 % 11/17/2021 1:07 PM CDT [facility] MONOCYTES 5 % 11/17/2021 1:07 PM CDT [facility] EOSINOPHILS 3 % 11/17/2021 1:07 PM CDT [facility] ABS. NEUTROPHILS CALCULATED 10.92(H) 1.60 - 8.30 x10'3/uL 11/17/2021 1:07 PM CDT [facility] ABS. LYMPHOCYTES 1.49 0.80 - 4.70 x10'3/uL 11/17/2021 1:07 PM CDT [facility] ABS. MONOCYTES 0.68 0.10 - 1.50 x10'3/uL 11/17/2021 1:07 PM CDT [facility] ABS. EOSINOPHILS 0.41(H) 0.00 - 0.40 x10'3/uL 11/17/2021 1:07 PM CDT [facility] DIFFERENTIAL COMMENT NORMAL REFERENCE RANGE NOT ESTABLISHED FOR THE PROPORTIONAL LEUKOCYTE DIFFERENTIAL. 11/17/2021 1:07 PM CDT [facility] PLT MORPH. NORMAL 11/17/2021 1:07 PM CDT [facility] RBC MORPHOLOGY NORMAL 11/17/2021 1:07 PM CDT [facility] 11/17/2021 12:0 5 PM CDT us Roberta Alex MD LABORATORY Final Result [facility] [address] [place] [address], documented in this encounter Visit Diagnoses Diagnosis Iron deficiency anemia, unspecified iron deficiency anemia type- Primary documented in this encounter Additional Health Concerns Infection Onset Date Last Indicated Resolved Time MRSA 06/05/2021 06/05/2021 documented as of this encounter Care Teams Sales Service Technician Relationship Specialty Start Date End Date Alejandro Blevins MD PCP - General FAMILY PRACTICE 12/10/19 documented as of this encounter
--- OUTSIDE RECORDS SUMMARY | 2024-07-11 05:41 | XMS_ITS | Encounter Summary ---
Author Organization [facility] Address [address] [place] [address]. [place] [address] [place] [address] Care Team Providers Care Executive Administrative Asst Name Role Phone Alejandro Blevins MD Primary Care Provider [phone] Reason for Visit * Reason Comments Dental Problem Pt to the ER with c/ o right bottom molar pain. Pt states the molar broke off and has been hurting since May. Pt is unable to sleep. Pt has not seen the dentist. Encounter Details Date Type Department Care Team (Late st Contact Info) Description 09/26/2021 12:35 AM OPHTHALMIC PHOTOGRAPHER - 09/26/2021 1:15 AM [facility] [address] [facility] [place] [id number] Geovanny Rodriguez, DO 1 [place] [address] Dental Problem (Pt to the ER with c/o right bottom molar pain. Pt states the molar broke off and has been hurting since May. Pt is unable to sleep. Pt has not seen the dentist. ) Discharge Disposition: Home or Self Care (Routine Discharge) Social History Tobacco Use Types Packs/Day Years Used Date Smoking Tobacco: Every Day Cigarettes Smokeless Tobacco: Never Alcohol Use Standard Drinks/Week Comments Not Currently 0 (1 standard drink = 0.6 oz pur e alcohol) Comments No Sex and Gender Information Value Date Recorded Sex Assigned at Not on file Legal Sex Female 11:30 PM OPHTHALMIC PHOTOGRAPHER Gender Identity Female 11/10/2021 3:09 PM CDT Sexual Orientation Straight 11/10/2021 3: 09 PM CDT COVID-19 Exposure Response Date Recorded In the last 10 days, have yo u been in contact with someone who was confirmed or suspected to have Coronavirus/COVID-19? No / Unsure 09/26/2021 12:13 AM OPHTHALMIC PHOTOGRAPHER documented as of this encounter Last Filed Vital Signs Vital Sign Reading Time Taken Comments Blood Pressure 132/78 09/26/2021 12:32 AM OPHTHALMIC PHOTOGRAPHER Pulse 66 09/26/2021 12:32 AM OPHTHALMIC PHOTOGRAPHER Temperature 36.1 ??C (97 ??F) 09/26/2021 12:32 AM OPHTHALMIC PHOTOGRAPHER Respiratory Rate 16 09/26/2021 12:32 AM OPHTHALMIC PHOTOGRAPHER Oxygen Saturation 100% 09/26/2021 12:32 AM OPHTHALMIC PHOTOGRAPHER Inhaled Oxygen Concentration - - Weight 68.9 kg (152 lb) 09/26/2021 12:32 AM OPHTHALMIC PHOTOGRAPHER Height 160 cm (5' 3 ) 09/26/2021 12:32 AM OPHTHALMIC PHOTOGRAPHER Body Mass Index 26.93 09/26/2021 12:32 AM OPHTHALMIC PHOTOGRAPHER documented in this encounter Functional Status * RETIRED Are you deaf or do you have serious difficulty hearing Answer Date of Assessment Author Status No 07/30/2020 10:48 PM OPHTHALMIC PHOTOGRAPHER Acti ve * RETIRED Are you blind or do you have serious difficulty seeing, even when wearing glasses? Answer Date of Assessment Author Status No 07/30/2020 10:46 PM OPHTHALMIC PHOTOGRAPHER Acti ve * Do you have serious [...] Leonardo RN Active documented in this encounter Discharge Instructions * Discharge Instructions* Geovanny Rodriguez DO - 09/26/2021 1:09 AM OPHTHALMIC PHOTOGRAPHER Continue ibuprofen per package instructions as needed for pain. Make sure that you keep your appointment with your dentist to prevent recurrence of infection. HALMIC PHOTOGRAPHER * Attachments The following attachments cannot be sent through Care Everywhere. * Fractured Tooth Discharge Instructions (Australian) documented in this encounter Medications at Time of Discharge amoxicillin 875 MG tablet Take 1 tablet (875 mg total) by mouth 2 (two) times daily for 7 days. 14 tablet 09/26/2021 10/03/2021 documented as of this encounter ED Notes * Geovanny Rodriguez DO - 09/26/2021 12:49 AM CST Images from the original note were not included. Chief Complaint Chief Complaint Patient presents with ??? Dental Problem Pt to the ER with c/o right bottom molar pain. Pt states the molar broke off and has been hurting since May. Pt is unable to sleep. Pt has not seen the dentist. History of Present Illness 31-year-old female presents to the emergency department complaining of right lower jaw pain. Patient states that she has been having trouble on and off since May, but current pain started 2 days ago. Patient reports that she has been taking ibuprofen with some effect. She denies any difficulty swallowing or fevers. She states that she now has an appointment with a dentist in about 2 weeks. History provided by: Patient bucket chucker used: No Dental Problem Medical History ALLERGIES: Allergies Allergen Reactions ??? Bee Venom Anaphylaxis ??? Shellfish Allergy Anaphylaxis MEDICATIONS: Prior to Admission medications Medication Sig Start Date End Date Taking? Authorizing Provider amoxicillin 875 MG tablet Take 1 tablet (875 mg total) by mouth 2 (two) times daily for 7 days. 09/26/21 10/03/21 Yes Geovanny Rodriguez DO PAST MEDICAL HISTORY: Past Medical History: Diagnosis Date ??? Acute ITP (CMS/HCC) ??? Anemia ??? History of blood transfusion ??? Iron deficiency anemia due to chronic blood loss 12/31/2020 PAST SURGICAL HISTORY: History reviewed. No pertinent surgical history. FAMILY HISTORY: Family History Problem Relation Name Age of Onset ??? No Known Problems Mother ??? No Known Problems Father ??? No Known Problems Sister ??? No Known Problems Brother SOCIAL HISTORY: Social History Tobacco Use ??? Smoking status: Current Every Day Smoker Packs/day: 0.50 Types: Cigarettes ??? Smokeless tobacco: Never Used Vaping Use ??? Vaping Use: Never used Substance Use Topics ??? Alcohol use: Not Currently ??? Drug use: Not Currently Review of Systems Review of Systems All other systems reviewed and are negative. Physical Exam Filed Vitals: 09/26/21 0032 BP: 132/78 Pulse: 66 Resp: 16 Temp: 97 ??F (36.1 ??C) TempSrc: Temporal SpO2: 100% Weight: 68.9 kg (152 lb) Height: 5' 3 (1.6 m) Physical Exam Vitals and nursing note reviewed. Constitutional: General: She is not in acute distress. Appearance: She is well-developed. She is not diaphoretic. HENT: Head: Normocephalic and atraumatic. Mouth/Throat: Mouth: Mucous membranes are moist. Dentition: Dental tenderness and dental caries present. No dental abscesses or gum lesions. Pharynx: Oropharynx is clear. No oropharyngeal exudate or posterior oropharyngeal erythema. Eyes: Conjunctiva/sclera: Conjunctivae normal. Pulmonary: Effort: Pulmonary effort is normal. No respiratory distress. Breath sounds: Normal breath sounds. Neurological: Mental Status: She is alert and oriented to person, place, and time. Psychiatric: Behavior: Behavior normal. Thought Content: Thought content normal. Judgment: Judgment normal. Diagnostic Studies / Procedures ELECTROCARDIOGRAMS: No results found for this visit on 09/26/21. LABORATORY STUDIES: No results found for this visit on 09/26/21. IMAGING STUDIES No orders to display ED Course / Medical Decision Making MDM Number of Diagnoses or Management Options Acute pulpitis: new and does not require workup Tooth fracture: established and worsening Risk of Complications, Morbidity, and/or Mortality Presenting problems: moderate Diagnostic procedures: minimal Management options: moderate Patient Progress Patient progress: stable Clinical Impression Acute pulpitis (Primary) Tooth fracture Disposition: Discharge Geovanny Rodriguez DO 09/26/21 0112 HALMIC PHOTOGRAPHER documented in this encounter Plan of Treatment Upcoming Encounters Date Type Department Care Team (Late st Contact Info) Description 09/25/2024 11:30 AM OPHTHALMIC PHOTOGRAPHER Appointment [facility] [address] [facility] [place] [address] Roberta Alex MD [address] [place] [address] 09/25/2024 11:40 AM OPHTHALMIC PHOTOGRAPHER Office [facility] [address] [facility] [address] [place] [address] Roberta Alex MD [address] [place] [address] documented as of this encounter Visit Diagnoses Diagnosis Acute pulpitis- Primary Pulpitis Tooth fracture Open wound of tooth (broken) (fractured) (due to trauma), without mention of complication documented in this encounter Administered Medications Inactive Administered Medications - up to 3 most recent administrations Medication Order MAR Action Action Date Dose Rate Site amoxicillin (AMOXIL) capsule 750 mg 750 mg, Oral, Once, 1 dose, On 09/26/21 at 0115 Given 09/26/2021 1:13 AM OPHTHALMIC PHOTOGRAPHER 750 mg documented in this encounter Active and Recently Administered Medications Times are shown in OPHTHALMIC PHOTOGRAPHER. Scheduled Medication Order 09/24/2021 09/25/2021 09/26/2021 amoxicillin (AMOXIL) capsule 750 mg (COMPLETED) 750 mg, Oral, Once, 1 dose, On 09/26/21 at 0115 0113 (Given - Provid er: Gladys Aburto RN) documented in this encounter Additional Health Concerns Infection Onset Date Last Indicated Resolved Time MRSA 06/05/2021 06/05/2021 documented as of this encounter Care Teams Executive Administrative Asst Relationship Specialty Start Date End Date Alejandro Blevins MD PCP - General FAMILY PRACTICE 12/10/19 documented as of this encounter
--- OUTSIDE RECORDS SUMMARY | 2024-07-11 05:41 | XMS_ITS | Encounter Summary ---
Author Organization [facility] Address [address] [place] [address]. [place] [address] [place] [address] Care Team Providers Care Learning Center Instructor Name Role Phone Alejandro Blevins MD Primary Care Provider [phone] Encounter Details Date Type Department Care Team (Latest Contact Info) Description 11/29/2022 4:25 PM CDT - 11/29/2022 11:59 PM CDT Hospital Encounter [address] [place] [address] Roberta Alex MD [address] [place] [address] Discharge Disposition: Home or Self Care (Routine Discharge) Social History Tobacco Use Types Packs/Day Years Used Date Smoking Tobacco: Every Day Cigarettes Smokeless Tobacco: Never Alcohol Use Standard Drinks/Week Comments Not Currently 0 (1 standard drink = 0.6 oz pur e alcohol) Comments No Sex and Gender Information Value Date Recorded Sex Assigned at Not on file Legal Sex Female 11:30 PM VIDEO EDITING INTERN Gender Identity Female 11/10/2021 3:09 PM CDT Sexual Orientation Straight 11/10/2021 3: 09 PM CDT COVID-19 Exposure Response Date Recorded In the last 10 days, have yo u been in contact with someone who was confirmed or suspected to have Coronavirus/COVID-19? No / Unsure 11/29/2022 4:22 PM CDT documented as of this encounter Functional Status * RETIRED Are you deaf or do you have serious difficulty hearing Answer Date of Assessment Author Status No 07/30/2020 10:48 PM VIDEO EDITING INTERN Acti ve * RETIRED Are you blind or do you have serious difficulty seeing, even when wearing glasses? Answer Date of Assessment Author Status No 07/30/2020 10:46 PM VIDEO EDITING INTERN Acti ve * Do you have [...] 6 (six) hours as needed for Pain. documented as of this encounter Plan of Treatment Upcoming Encounters Date Type Department Care Team (Late st Contact Info) Description 09/25/2024 11:30 AM VIDEO EDITING INTERN Appointment [facility] [address] [place] [address] Roberta Alex MD [address] [place] [address] 09/25/2024 11:40 AM VIDEO EDITING INTERN Office Visit [facility] [place] [address] Roberta Alex MD [address] [place], [place] [address] documented as of this encounter Procedures Procedure Name Priority Date/Time Associated Diagnosis Comments IRON SAT PANEL (IRON,IBC,%SAT) Routine 11/29/2022 4:37 PM CDT Thrombocytopenia CBC W/DIFF AUTOMATED Routine 11/29/2022 4:37 PM CDT Thrombocytopenia FERRITIN Routine 11/29/2022 4:37 PM CDT Thrombocytopenia documented in this encounter Results * FERRITIN (11/29/2022 4:37 PM CDT) Pathologist [facility] FERRITIN 13.9 8 - 252 NG/ML 11/29/2022 5:21 PM CDT [facility] 11/29/2022 4:37 PM CDT Roberta Alex MD LABORATORY Final Result Performing Organization Address City/[facility]/ZIP Co de Phone Number [facility] [address] [place] [address], * (ABNORMAL) IRON SAT PANEL (IRON,IBC,%SAT) (11/29/2022 4:37 PM CDT) [facility] IRON 47(L) 50 - 170 MCG/DL 11/29/2022 5:17 PM CDT [facility] IRON BINDING CAPACITY 324 250 - 450 MCG/DL 11/29/2022 5:17 PM CDT [facility] IRON SATURATION 15 % 5:17 PM CDT [facility] Comment:REFERENCE RANGE NOT ESTABLISHED 11/29/2022 4:37 PM CDT us Roberta Alex MD LABORATORY Final Result Performing Organization Address City/[facility]/ZIP Co de Phone Number [facility] [address] [place] [address], * (ABNORMAL) CBC W/DIFF AUTOMATED (11/29/2022 4:37 PM CDT) [facility] WBC 7.17 4.00 - 10.80 x10'3/uL 11/29/2022 4:52 PM CDT [facility] RBC 5.00 4.10 - 5.40 x10'6/uL 11/29/2022 4:52 PM CDT [facility] HGB 14.0 12.0 - 16.0 G/DL 11/29/2022 4:52 PM CDT [facility] HCT 44.9 36.0 - 47.0 % 11/29/2022 4:52 PM CDT [facility] MCV 89.8 78.0 - 100.0 FL 11/29/2022 4:52 PM CDT [facility] MCH 28.0 27.0 - 31.0 PG 11/29/2022 4:52 PM CDT [facility] MCHC 31.2(L) 33.0 - 36.0 G/DL 11/29/2022 4:52 PM CDT [facility] RDW 13.4 11.5 - 14.5 % 11/29/2022 4:52 PM CDT [facility] PLT 42(L) 150 - 350 x10'3/uL 11/29/2022 4:52 PM CDT [facility] MPV RESULTS NOT AVAILABLE 7.4 - 10.4 FL 11/29/2022 4:52 PM CDT [facility] CBC COMMENT NORMAL REFERENCE RANGE NOT ESTABLISHED FOR THE PROPORTIONAL LEUKOCYTE DIFFERENTIAL. 11/29/2022 4:52 PM CDT [facility] NEUTROPHILS % 67.0 % 11/29/2022 5:14 PM CDT [facility] LYMPHOCYTES % 24.8 % 11/29/2022 5:14 PM CDT [facility] MONOCYTES % 4.6 % 11/29/2022 5:14 PM CDT [facility] EOSINOPHILS % 2.9 % 11/29/2022 5:14 PM CDT [facility] BASOPHILS % 0.6 % 11/29/2022 5:14 PM CDT [facility] IMMATURE GRANS % 0.1 % 11/30/19 5:14 PM CDT [facility] NRBC 0.0 % 11/29/2022 5:14 PM CDT [facility] ABS. NEUTROPHILS 4.80 1.60 - 8.30 x10'3/uL 11/29/2022 5:14 PM CDT [facility] ABS. LYMPHOCYTES 1.78 0.80 - 4.70 x10'3/uL 11/29/2022 5:14 PM CDT [facility] ABS. MONOCYTES 0.33 0.00 - 1.50 x10'3/uL 11/29/2022 5:14 PM CDT [facility] ABS. EOSINOPHILS 0.21 0.00 - 0.40 x10'3/uL 11/29/2022 5:14 PM CDT [facility] ABS. BASOPHILS 0.04 0.00 - 0.20 x10'3/uL 11/29/2022 5:14 PM CDT [facility] ABS. IMMATURE GRANULOCYTES 0.01 0.00 - 0.03 x10'3/uL 11/29/2022 5:14 PM CDT [facility] ABS. NUCLEATED RBC'S 0.00 0.00 x10'3/uL 11/29/2022 5:14 PM CDT [facility] PLT MORPH. DECREASED 11/29/2022 5:14 PM CDT [facility] RBC MORPHOLOGY NORMAL 11/29/2022 5:14 PM CDT [facility] 11/29/2022 4:37 PM CDT us Roberta Alex MD LABORATORY Final Result [facility] [address] [place] [address], documented in this encounter Visit Diagnoses Diagnosis Thrombocytopenia (CMS/HCC) Thrombocytopenia, unspecified documented in this encounter Additional Health Concerns Infection Onset Date Last Indicated Resolved Time MRSA 06/05/2021 06/05/2021 documented as of this encounter Care Teams Learning Center Instructor Relationship Specialty Start Date End Date Alejandro Blevins MD PCP - General FAMILY PRACTICE 12/10/19 documented as of this encounter
--- OUTSIDE RECORDS SUMMARY | 2024-07-11 05:41 | XMS_ITS | Encounter Summary ---
Author Organization [facility] Address [address] [place] [address]. [place] [address] [place] [address] Care Team Providers Care Forms Builder Name Role Phone Alejandro Blevins MD Primary Care Provider [phone] Encounter Details Date Type Department Care Team (Latest Contact Info) Description 12/13/2022 11:20 AM CDT - 12/13/2022 11:24 AM CDT Hospital Encounter [facility] [address] [place] [address] [place] [address] Carey Pang, EMANUEL [address] [place] [id number] Discharge Disposition: Home or Self Care (Routine Discharge) Social History Tobacco Use Types Packs/Day Years Used Date Smoking Tobacco: Every Day Cigarettes Smokeless Tobacco: Never Alcohol Use Standard Drinks/Week Comments Not Currently 0 (1 standard drink = 0.6 oz pur e alcohol) Comments No Sex and Gender Information Value Date Recorded Sex Assigned at Not on file Legal Sex Female 11:30 PM PLACEMENT MANAGER Gender Identity Female 11/10/2021 3:09 PM CDT Sexual Orientation Straight 11/10/2021 3: 09 PM CDT COVID-19 Exposure Response Date Recorded In the last 10 days, have yo u been in contact with someone who was confirmed or suspected to have Coronavirus/COVID-19? No / Unsure 12/13/2022 11:24 AM CDT documented as of this encounter Functional Status * RETIRED Are you deaf or do you have serious difficulty hearing Answer Date of Assessment Author Status No 07/30/2020 10:48 PM PLACEMENT MANAGER Acti ve * RETIRED Are you blind or do you have serious difficulty seeing, even when wearing glasses? Answer Date of Assessment Author Status No 07/30/2020 10:46 PM PLACEMENT MANAGER Acti ve * Do you have [...] (PRILOSEC) 20 MG capsuleIndication s:Acute ITP (CMS/HCC [facility]) Take 1 capsule (20 mg total) by mouth daily. 30 capsule 1 12/07/2022 04/11/2023 documented as of this encounter Plan of Treatment Upcoming Encounters Date Type Department Care Team (Late st Contact Info) Description 09/25/2024 11:30 AM PLACEMENT MANAGER Appointment [facility] [place] [address] Roberta Alex MD [address] [place] [address] 09/25/2024 11:40 AM PLACEMENT MANAGER Office Visit [facility] [place] [address] Roberta Alex MD [address] [place] [address] documented as of this encounter Procedures Procedure Name Priority Date/Time Associated Diagnosis Comments CBC W/DIFF AUTOMATED Routine 12/13/2022 11:43 AM CDT Thrombocytopenia documented in this encounter Results * (ABNORMAL) CBC W/DIFF AUTOMATED (12/13/2022 11:43 AM CDT) WBC 8.96 4.00 - 10.80 x10'3/uL 12/13/2022 11:54 AM CDT [facility] RBC 4.94 4.10 - 5.40 x10'6/uL 12/13/2022 11:54 AM CDT [facility] HGB 14.3 12.0 - 16.0 G/DL 12/13/2022 11:54 AM CDT [facility] HCT 44.3 36.0 - 47.0 % 12/13/2022 11:54 AM CDT [facility] MCV 89.7 78.0 - 100.0 FL 12/13/2022 11:54 AM CDT [facility] MCH 28.9 27.0 - 31.0 PG 12/13/2022 11:54 AM CDT [facility] MCHC 32.3(L) 33.0 - 36.0 G/DL 12/13/2022 11:54 AM CDT [facility] RDW 12.9 11.5 - 14.5 % 12/13/2022 11:54 AM CDT [facility] PLT 33(L) 150 - 350 x10'3/uL 12/13/2022 11:54 AM CDT [facility] MPV RESULTS NOT AVAILABLE 7.4 - 10.4 FL 12/13/2022 11:54 AM CDT [facility] CBC COMMENT NORMAL REFERENCE RANGE NOT ESTABLISHED FOR THE PROPORTIONAL LEUKOCYTE DIFFERENTIAL. 12/13/2022 11:54 AM CDT [facility] NEUTROPHILS % 67.9 % 12/13/2022 12:07 PM CDT [facility] LYMPHOCYTES % 22.0 % 12/13/2022 12:07 PM CDT [facility] MONOCYTES % 4.7 % 12/13/2022 12:07 PM CDT [facility] EOSINOPHILS % 4.4 % 12/13/2022 12:07 PM CDT [facility] BASOPHILS % 0.8 % 12/13/2022 12:07 PM CDT [facility] IMMATURE GRANS % 0.2 % 12/14/19 12:07 PM CDT [facility] NRBC 0.0 % 12/13/2022 12:07 PM CDT [facility] ABS. NEUTROPHILS 6.09 1.60 - 8.30 x10'3/uL 12/13/2022 12:07 PM CDT [facility] ABS. LYMPHOCYTES 1.97 0.80 - 4.70 x10'3/uL 12/13/2022 12:07 PM CDT [facility] ABS. MONOCYTES 0.42 0.00 - 1.50 x10'3/uL 12/13/2022 12:07 PM CDT [facility] ABS. EOSINOPHILS 0.39 0.00 - 0.40 x10'3/uL 12/13/2022 12:07 PM CDT [facility] ABS. BASOPHILS 0.07 0.00 - 0.20 x10'3/uL 12/13/2022 12:07 PM CDT [facility] ABS. IMMATURE GRANULOCYTES 0.02 0.00 - 0.03 x10'3/uL 12/13/2022 12:07 PM CDT [facility] ABS. NUCLEATED RBC'S 0.00 0.00 x10'3/uL 12/13/2022 12:07 PM T [facility] PLT MORPH. DECREASED 12/13/2022 12:07 PM CDT [facility] Comment:LARGE PLATELETS RBC MORPHOLOGY NORMAL 12/13/2022 12:07 PM CDT [facility] 12/13/2022 11:4 3 AM CDT Carey [facility]STELLANOS LABORAT[facility] Final Res ult [facility] [address] [place] [address], documented in this encounter Visit Diagnoses Diagnosis Thrombocytopenia (CMS/HCC) Thrombocytopenia, unspecified documented in this encounter Additional Health Concerns Infection Onset Date Last Indicated Resolved Time MRSA 06/05/2021 06/05/2021 documented as of this encounter Care Teams Forms Builder Relationship Specialty Start Date End Date Alejandro Blevins MD PCP - General FAMILY PRACTICE 12/10/19 documented as of this encounter
--- OUTSIDE RECORDS SUMMARY | 2024-07-11 05:41 | XMS_ITS | Encounter Summary ---
Author Organization [facility] Address [address] [place] [address]. [place], [place] [address] [place] [address] Care Team Providers Care Airdox Fitter Name Role Phone Alejandro Blevins MD Primary Care Provider Reason for Visit * Reason Onset Date Comments Disability Form 11/02/2022 Encounter Details Date Type Department Care Team (Late st Contact Info) Description 11/02/2022 Telephone [facility] [place] [id number] Michaela Fitzgerald RNFA Disability Form Social History Tobacco Use Types Packs/Day Years Used Date Smoking Tobacco: Every Day Cigarettes Smokeless Tobacco: Never Alcohol Use Standard Drinks/Week Comments Not Currently 0 (1 standard drink = 0.6 oz pur e alcohol) Comments No Sex and Gender Information Value Date Recorded Sex Assigned at Not on file Legal Sex Female 11:30 PM MANUFACTURING PROCESS TECHNICIAN Gender Identity Female 11/10/2021 3:09 PM CDT Sexual Orientation Straight 11/10/2021 3: 09 PM CDT COVID-19 Exposure Response Date Recorded In the last 10 days, have yo u been in contact with someone who was confirmed or suspected to have Coronavirus/COVID-19? No / Unsure 10/28/2022 3:05 PM CDT documented as of this encounter Functional Status * RETIRED Are you deaf or do you have serious difficulty hearing Answer Date of Assessment Author Status No 07/30/2020 10:48 PM MANUFACTURING PROCESS TECHNICIAN Acti ve * RETIRED Are you blind or do you have serious difficulty seeing, even when wearing glasses? Answer Date of Assessment Author Status No 07/30/2020 10:46 PM MANUFACTURING PROCESS TECHNICIAN Acti ve * Do you have [...] documented in this encounter Progress Notes * LUCIO Irvin - 11/03/2022 11:02 AM CDT Patient requested that our office also contact Seth which was completed at this time. 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 Also emailed as requested at this time. Claim number [id number] * LUCIO Irvin - 11/02/2022 2:33 PM CDT Rn received message that work note needs emailed. RN reviewed file and email address previously used not found. RN advised patient of this. She then provided email of [email or web address] as well as nurse case manager phone number [phone]. Patient also states that she has supplied her work with copy of the work note. documented in this encounter Plan of Treatment Upcoming Encounters Date Type Department Care Team (Late st Contact Info) Description 09/25/2024 11:30 AM MANUFACTURING PROCESS TECHNICIAN Appointment [facility] [address] [place] [address] Roberta Alex MD [address] [place] [address] 09/25/2024 11:40 AM MANUFACTURING PROCESS TECHNICIAN Office Visit [facility] [address] [place] [address] Roberta Alex MD [address] [place] [address] documented as of this encounter Visit Diagnoses Not on filedocumented in this encounter Additional Health Concerns Infection Onset Date Last Indicated Resolved Time MRSA 06/05/2021 06/05/2021 documented as of this encounter Care Teams Airdox Fitter Relationship Specialty Start Date End Date Alejandro Blevins MD PCP - General FAMILY PRACTICE 12/10/19 documented as of this encounter
--- OUTSIDE RECORDS SUMMARY | 2024-07-11 05:41 | XMS_ITS | Encounter Summary ---
Author Organization [facility] Address [address] [place] [address]. [place] [address] [place] [address] Care Team Providers Care Pallet Repairer Name Role Phone Alejandro Blevins MD Primary Care Provider [phone] Encounter Details Date Type Department Care Team (Latest Contact Info) Description 12/07/2022 10:20 AM CDT - 12/07/2022 10:40 AM CDT Hospital Encounter [address] [place] [address] Roberta Alex MD [address] [place] [address] Discharge Disposition: Home or Self Care (Routine Discharge) Social History Tobacco Use Types Packs/Day Years Used Date Smoking Tobacco: Every Day Cigarettes Smokeless Tobacco: Never Alcohol Use Standard Drinks/Week Comments Not Currently 0 (1 standard drink = 0.6 oz pur e alcohol) Comments No Sex and Gender Information Value Date Recorded Sex Assigned at Not on file Legal Sex Female 11:30 PM ESTHETICIAN/SPA COORDINATOR Gender Identity Female 11/10/2021 3:09 PM CDT [...] Assessment Author Status No 07/30/2020 10:48 PM ESTHETICIAN/SPA COORDINATOR Acti ve * RETIRED Are you blind or do you have serious difficulty seeing, even when wearing glasses? Answer Date of Assessment Author Status No 07/30/2020 10:46 PM ESTHETICIAN/SPA COORDINATOR Acti ve * Do you have serious [...] st Contact Info) Description 09/25/2024 11:30 AM ESTHETICIAN/SPA COORDINATOR Appointment [facility] [address] [place] [address] Roberta Alex MD [address] [place] [address] 09/25/2024 11:40 AM ESTHETICIAN/SPA COORDINATOR Office Visit [facility] [place] [address] Roberta Alex MD [address] [place], [place] [address] documented as of this encounter Procedures Procedure Name Priority Date/Time Associated Diagnosis Comments IRON SAT PANEL (IRON,IBC,%SAT) Routine 12/07/2022 10:51 AM CDT Thrombocytopenia CBC W/DIFF AUTOMATED Routine 12/07/2022 10:51 AM CDT Thrombocytopenia FERRITIN Routine 12/07/2022 10:51 AM CDT Thrombocytopenia VITAMIN B-12 Routine 12/07/2022 10:15 AM CDT Thrombocytopenia COMPREHENSIVE METABOLIC PANEL Routine 12/07/2022 10:15 AM CDT Thrombocytopenia documented in this encounter Results * FERRITIN (12/07/2022 10:51 AM CDT) FERRITIN 13.8 8 - 252 NG/ML 12/07/2022 11:31 AM CDT [facility] 12/07/2022 10:5 1 AM CDT Roberta Alex MD LABORATORY Final Result [facility] [address] [place] [address], * IRON SAT PANEL (IRON,IBC,%SAT) (12/07/2022 10:51 AM CDT) IRON 89 50 - 170 MCG/DL 12/07/2022 12:24 PM CDT [facility] IRON BINDING CAPACITY 373 250 - 450 MCG/DL 12/07/2022 12:24 PM CDT [facility] IRON SATURATION 24 % 12:24 PM CDT [facility] Comment:REFERENCE RANGE NOT ESTABLISHED 12/07/2022 10:5 1 AM CDT us Roberta Alex MD LABORATORY Final Result [facility] [address] [place] [address], * (ABNORMAL) CBC W/DIFF AUTOMATED (12/07/2022 10:51 AM CDT) WBC 7.28 4.00 - 10.80 x10'3/uL 12/07/2022 11:10 AM CDT [facility] RBC 5.13 4.10 - 5.40 x10'6/uL 12/07/2022 11:10 AM CDT [facility] HGB 14.6 12.0 - 16.0 G/DL 12/07/2022 11:10 AM CDT [facility] HCT 46.1 36.0 - 47.0 % 12/07/2022 11:10 AM CDT [facility] MCV 89.9 78.0 - 100.0 FL 12/07/2022 11:10 AM CDT [facility] MCH 28.5 27.0 - 31.0 PG 12/07/2022 11:10 AM CDT [facility] MCHC 31.7(L) 33.0 - 36.0 G/DL 12/07/2022 11:10 AM CDT [facility] RDW 13.1 11.5 - 14.5 % 12/07/2022 11:10 AM CDT [facility] PLT 36(L) 150 - 350 x10'3/uL 12/07/2022 11:10 AM CDT [facility] MPV RESULTS NOT AVAILABLE 7.4 - 10.4 FL 12/07/2022 11:10 AM CDT [facility] CBC COMMENT NORMAL REFERENCE RANGE NOT ESTABLISHED FOR THE PROPORTIONAL LEUKOCYTE DIFFERENTIAL. 12/07/2022 11:10 AM CDT [facility] NEUTROPHILS % 56.4 % 12/07/2022 11:34 AM CDT [facility] LYMPHOCYTES % 30.8 % 12/07/2022 11:34 AM CDT [facility] MONOCYTES % 6.9 % 12/07/2022 11:34 AM CDT [facility] EOSINOPHILS % 4.8 % 12/07/2022 11:34 AM CDT [facility] BASOPHILS % 1.0 % 12/07/2022 11:34 AM CDT [facility] IMMATURE GRANS % 0.1 % 12/08/19 11:34 AM CDT [facility] NRBC 0.0 % 12/07/2022 11:34 AM CDT [facility] ABS. NEUTROPHILS 4.11 1.60 - 8.30 x10'3/uL 12/07/2022 11:34 AM CDT [facility] ABS. LYMPHOCYTES 2.24 0.80 - 4.70 x10'3/uL 12/07/2022 11:34 AM CDT [facility] ABS. MONOCYTES 0.50 0.00 - 1.50 x10'3/uL 12/07/2022 11:34 AM CDT [facility] ABS. EOSINOPHILS 0.35 0.00 - 0.40 x10'3/uL 12/07/2022 11:34 AM CDT [facility] ABS. BASOPHILS 0.07 0.00 - 0.20 x10'3/uL 12/07/2022 11:34 AM CDT [facility] ABS. IMMATURE GRANULOCYTES 0.01 0.00 - 0.03 x10'3/uL 12/07/2022 11:34 AM CDT [facility] ABS. NUCLEATED RBC'S 0.00 0.00 x10'3/uL 12/07/2022 11:34 AM CDT [facility] PLT MORPH. DECREASED 12/07/2022 11:34 AM CDT [facility] RBC MORPHOLOGY 1+ 12/07/2022 11:34 AM CDT [facility] Comment: ANISOCYTOSIS 1+ POIKILOCYTOSIS 12/07/2022 10:5 1 AM CDT us Roberta Alex MD LABORATORY Final Result [facility] [address] [place] [address], * VITAMIN B-12 (12/07/2022 10:15 AM CDT) VITAMIN B12 S/P/B 461 193 - 986 PG/ML 12/08/2022 3:47 PM CDT [facility] 12/07/2022 10:1 5 AM CDT Roberta Alex MD LABORATORY Final Result [facility] [address] [place] [address], [place] [phone] [id number] * COMPREHENSIVE METABOLIC PANEL (12/07/2022 10:15 AM CDT) SODIUM S/P/B 138 136 - 145 MMOL/L 12/07/2022 3:38 PM CDT [facility] POTASSIUM S/P/B 4.5 3.5 - 5.1 MMOL/L 12/07/2022 3:38 PM CDT [facility] Comment:MILD HEMOLYSIS, RESU LT MAY BE AFFECTED. CHLORIDE S/P/B 103 98 - 107 MMOL/L 12/07/2022 3:38 PM CDT [facility] CO2 24.1 21.0 - 32.0 MMOL/L 12/07/2022 3:38 PM CDT [facility] GLUCOSE 94 70 - 99 MG/DL 12/07/2022 3:38 PM CDT [facility] Comment: FASTING GLUCOSE 100 TO 125 MG/DL IS CONSISTENT WITH IMPAIRED FASTING GLUCOSE. FASTING GLUCOSE >125 MG/DL IS CONSISTENT WITH DIABETES. RANDOM GLUCOSE >200 MG/DL WITH HYPERGLYCEMIC SYMPTOMS IS CONSISTENT WITH DIABETES. PER ADA GUIDELINES BUN 15 6 - 24 MG/DL 12/07/2022 3:38 PM CDT [facility] CREATININE S/P/B 0.77 0.55 - 1.02 MG/DL 12/07/2022 3:38 PM CDT [facility] CALCIUM S/P/B 8.8 8.4 - 10.5 MG/DL 12/07/2022 3:38 PM T [facility] BILIRUBIN TOTAL S/P/B 0.3 0.2 - 1.0 MG/DL 12/07/2022 3:38 PM [facility] Comment: THIS ASSAY IS NOT RECOMMENDED FOR PATIENTS UNDERGOING TREATMENT WITH ELTROMBOPAG DUE TO THE POTENTIAL FOR FALSELY ELEVATED RESULTS. ALKALINE PHOSPHATASE S/P/B 70 37 - 98 U/L 12/07/2022 3:38 PM T [facility] AST 22 15 - 37 U/L 12/07/2022 3:38 PM [facility] Comment:MILD HEMOLYSIS, RESU LT MAY BE AFFECTED. ALT 16 14 - 59 U/L 12/07/2022 3:38 PM T [facility] TOTAL PROTEIN S/P/B 7.4 6.4 - 8.2 G/DL 12/07/2022 3:38 PM T [facility] ALBUMIN S/P/B 3.8 3.4 - 5.0 G/DL 12/07/2022 3:38 PM [facility] ANION GAP 10.9 5.0 - 15.0 MMOL/L 12/07/2022 3:38 PM [facility] OSMOLALITY (CALC) 287 MOSM/KG 023 3:38 PM [facility] Comment:REFERENCE RANGE NOT ESTABLISHED GFR ESTIMATE >90 >89 ML/MIN/1. 73 M2 12/07/2022 3:38 PM [facility] GFR NOTES GFR REFERENCE S: 12/07/2022 3:38 PM [facility] Comment: THE ESTIMATED GFR [...] ml/min/1.73 m2 G5,KIDNEY FAILURE: <15 ml/min/1.73 m2 12/07/2022 10:1 5 AM CDT us Roberta Alex MD LABORATORY Final Result [facility] [address] [place] [address], documented in this encounter Visit Diagnoses Diagnosis Thrombocytopenia (CMS/HCC) Thrombocytopenia, unspecified documented in this encounter Additional Health Concerns Infection Onset Date Last Indicated Resolved Time MRSA 06/05/2021 06/05/2021 documented as of this encounter Care Teams Pallet Repairer Relationship Specialty Start Date End Date Alejandro Blevins MD PCP - General FAMILY PRACTICE 12/10/19 documented as of this encounter
--- OUTSIDE RECORDS SUMMARY | 2024-07-11 05:41 | XMS_ITS | Encounter Summary ---
Author Organization [facility] Address [address] [place] [address]. [place] [address] [place] [address] Care Team Providers Care Crane Helper Name Role Phone Alejandro Blevins MD Primary Care Provider [phone] Reason for Visit * Reason Onset Date Comments Appointment Request 10/19/2021 Encounter Details Date Type Department Care Team ([facility] Contact Info) Description 10/19/[address] [place] [address] Roberta Alex MD [address] [place] [address] Appointment Request Social History Tobacco Use Types Packs/Day Years Used Date Smoking Tobacco: Every Day Cigarettes Smokeless Tobacco: Never Alcohol Use Standard Drinks/Week Comments Not Currently 0 (1 standard drink = 0.6 oz pur e alcohol) Comments No Sex and Gender Information Value Date Recorded Sex Assigned at Not on file Legal Sex Female 11:30 PM AEROSPACE TECHNICIAN Gender Identity Female 11/10/2021 3:09 PM CDT Sexual Orientation Straight 11/10/2021 3: 09 PM CDT COVID-19 Exposure Response Date Recorded In the last 10 days, have yo u been in contact with someone who was confirmed or suspected to have Coronavirus/COVID-19? No / Unsure 12/01/2021 9:19 AM CDT documented as of this encounter Functional Status * RETIRED Are you deaf or do you have serious difficulty hearing Answer Date of Assessment Author Status No 07/30/2020 10:48 PM AEROSPACE TECHNICIAN Acti ve * RETIRED Are you blind or do you have serious difficulty seeing, even when wearing glasses? Answer Date of Assessment Author Status No 07/30/2020 10:46 PM AEROSPACE TECHNICIAN Acti ve * Do you have [...] documented in this encounter Progress Notes * Helena Chavira MA - 10/19/2021 11:34 AM CDT Called Pt. Left a VM to call back. Pt. Needs an appointment with Dr. Alex before any orders can be given to [facility]. documented in this encounter Plan of Treatment Upcoming Encounters Date Type Department Care Team (Late st Contact Info) Description 09/25/2024 11:30 AM AEROSPACE TECHNICIAN Appointment [facility] [place] [address] Roberta Alex MD [address] [place] [address] 09/25/2024 11:40 AM AEROSPACE TECHNICIAN Office Visit [facility] [place] [address] [address] Roberta Alex MD [address] [place], [place] [address] documented as of this encounter Visit Diagnoses Not on filedocumented in this encounter Additional Health Concerns Infection Onset Date Last Indicated Resolved Time MRSA 06/05/2021 06/05/2021 documented as of this encounter Care Teams Crane Helper Relationship Specialty Start Date End Date Alejandro Blevins MD PCP - General FAMILY PRACTICE 12/10/19 documented as of this encounter
--- OUTSIDE RECORDS SUMMARY | 2024-07-11 05:41 | XMS_ITS | Encounter Summary ---
Author Organization [facility] Address [address] [place] [address]. [place] [address] [place] [address] Care Team Providers Care Mid Wife Name Role Phone Alejandro Blevins MD Primary Care Provider [phone] Reason for Visit * Reason Comments Infusion Therapy * Treatment/Therapy Plan Authorization (Routine) - Closed Specialty Diagnoses / Procedures Referred By Contac t Referred To Contact Diagnoses Iron deficiency anemia due to chronic blood loss Procedures Roberta Evans MD [address] [place] [address] Phone: tel: fax: [facility] [place] [address] Phone: tel: Referral ID Status Reason Start Date Expiration Date Visits Re quested Visits Authorized [id number] Closed 12/07/2022 12/08/2023 1 1 Encounter Details Date Type Department Care Team (Late st Contact Info) Description 12/13/2022 11:25 AM CDT - 12/13/2022 11:59 PM CDT Hospital Encounter [facility] [place] [place] [address] Alejandro Blevins MD [address] [place] [address] Infusion Therapy Discharge Disposition: Home or Self [...] on file Legal Sex Female 11:30 PM PAROLE SUPERVISOR Gender Identity Female 11/10/2021 3:09 PM [...] Sign Reading Time Taken Comments Blood Pressure 109/67 12/13/2022 11:56 AM CDT Pulse 69 12/13/2022 11:56 AM CDT Temperature 36.3 ??C (97.4 ??F) 12/13/2022 1 1:56 AM CDT Respiratory Rate 20 12/13/2022 11:5 6 AM CDT Oxygen Saturation 100% 12/13/2022 11: 56 AM CDT Inhaled Oxygen Concentration - - Weight 76.2 kg (167 lb 15.9 oz) 023 11:56 AM CDT Height - - Body Mass Index 29.76 10/28/2022 3:44 PM CDT documented in this encounter Functional Status * RETIRED Are you deaf or do you have serious difficulty hearing Answer Date of Assessment Author Status No 07/30/2020 10:48 PM PAROLE SUPERVISOR Acti ve * RETIRED Are you blind or do you have serious difficulty seeing, even when wearing glasses? Answer Date of Assessment Author Status No 07/30/2020 10:46 PM PAROLE SUPERVISOR Acti ve * Do you have serious difficulty walking or climbing stairs? Answer Date of Assessment Author Status No 07/30/2020 10:46 PM PAROLE SUPERVISOR Nella Le RN Active * Do you [...] as of this encounter Progress Notes * Ana Andrews RN - 12/13/2022 11:30 AM CDTEncounter addended by: Ana Andrews RN on: 12/13/2022 1:08 PM Actions taken: Treatment plan modified * Cecilia Healy - 12/13/2022 11:30 AM CDTEncounter addended by: Cecilia Healy on: 12/14/2022 10:30 AM Actions taken: Charge Capture section accepted * Luis Goznalez RN - 12/13/2022 11:30 AM CDT PATIENT ASSESSMENT: Admitted via: [...] st Contact Info) Description 09/25/2024 11:30 AM PAROLE SUPERVISOR Appointment [facility] [address] [place] [address] [place] [address] Roberta Alex MD [address] [place] [address] 09/25/2024 11:40 AM PAROLE SUPERVISOR Office Visit [facility] [address] [place] [address] [place] [address] Roberta Alex MD [address] [place] [address] documented as of this encounter Visit Diagnoses [...] at 400 mL/hr, Once, 1 dose, On 12/13/22 at 1215Indications:Iron deficiency anemia due to chronic blood loss New Bag 12/13/2022 12:13 PM CDT 200 mg 400 mL/hr documented in this encounter Additional Health Concerns Infection Onset Date Last Indicated Resolved Time MRSA 06/05/2021 06/05/2021 documented as of this encounter Care Teams Mid Wife Relationship Specialty Start Date End Date Alejandro Blevins MD PCP - General FAMILY PRACTICE 12/10/19 documented as of this encounter
--- OUTSIDE RECORDS SUMMARY | 2024-07-11 05:41 | XMS_ITS | Encounter Summary ---
Author Organization [facility] Address [address] [place] [address]. [place], [place] [address] [place] [address] Care Team Providers Care Lifeguard Name Role Phone Alejandro Blveins MD Primary Care Provider [phone] Encounter Details Date Type Department Care Team (Latest Contact Info) Description 11/17/2021 Travel Social History Tobacco Use Types Packs/Day Years Used Date Smoking Tobacco: Every Day Cigarettes Smokeless Tobacco: Never Alcohol Use Standard Drinks/Week Comments Not Currently 0 (1 standard drink = 0.6 oz pur e alcohol) Comments No Sex and Gender Information Value Date Recorded Sex Assigned at Not on file Legal Sex Female 11:30 PM HOME CARE GIVER Gender Identity Female 11/10/2021 3:09 PM CDT Sexual Orientation Straight 11/10/2021 3: 09 PM CDT COVID-19 Exposure Response Date Recorded In the last 10 days, have yo u been in contact with someone who was confirmed or suspected to have Coronavirus/COVID-19? No / Unsure 11/17/2021 11:57 AM CDT documented as of this encounter Functional Status * RETIRED Are you deaf or do you have serious difficulty hearing Answer Date of Assessment Author Status No 07/30/2020 10:48 PM HOME CARE GIVER Acti ve * RETIRED Are you blind or do you have serious difficulty seeing, even when wearing glasses? Answer Date of Assessment Author Status No 07/30/2020 10:46 PM HOME CARE GIVER Acti ve * Do you have serious difficulty walking or climbing stairs? Answer Date of Assessment Author Status No 07/30/2020 10:46 PM HOME CARE GIVER Nella Le RN Active * Do you have difficulty dressing or bathing? Answer Date of Assessment Author Status No 07/30/2020 10:46 PM HOME CARE GIVER Nella Le RN Active * Because of a physical, mental, or emotional condition, do you have difficulty doing errands alone such as visiting a doctor's office or shopping? Answer Date of Assessment Author Status No 07/30/2020 10:46 PM HOME CARE GIVER Nella Le RN Active documented as of this encounter Mental Status * Because of a physical, mental, or emotional condition, do you have serious difficulty concentrating, remembering, or making decisions? Answer Entry Date Author Status No 07/30/2020 10:46 PM HOME CARE GIVER Nella Le RN Active documented in this encounter Plan of Treatment Upcoming Encounters Date Type Department Care Team (Late st Contact Info) Description 09/25/2024 11:30 AM HOME CARE GIVER Appointment [facility] [address] [place] [address] Roberta Alex MD [address] [place] [id number] 09/25/2024 11:40 AM HOME CARE GIVER Office Visit [facility] [address] [place] [address] Roberta Alex MD [address] [place] [address] documented as of this encounter Visit Diagnoses Not on filedocumented in this encounter Additional Health Concerns Infection Onset Date Last Indicated Resolved Time MRSA 06/05/2021 06/05/2021 documented as of this encounter Care Teams Lifeguard Relationship Specialty Start Date End Date Alejandro Blevins MD PCP - General FAMILY PRACTICE 12/10/19 documented as of this encounter
--- OUTSIDE RECORDS SUMMARY | 2024-07-11 05:41 | XMS_ITS | Encounter Summary ---
Author Organization [facility] Address [address] [place] [address]. [place], [place] [address] [place] [address] Care Team Providers Care Senior Chemical Engineer Name Role Phone Alejandro Blevins MD Primary Care Provider [phone] Encounter Details Date Type Department Care Team (Latest Contact Info) Description 06/05/2021 Travel Social History Tobacco Use Types Packs/Day Years Used Date Smoking Tobacco: Former Smokeless Tobacco: Current Comments No Sex and Gender Information Value Date Recorded Sex Assigned at Not on file Legal Sex Female 11:30 PM DIRECTOR RADIATION ONCOLOGY Gender Identity Female 11/10/2021 3:09 PM CDT Sexual Orientation Straight 11/10/2021 3: 09 PM CDT COVID-19 Exposure Response Date Recorded In the last month, have you been in contact with someone who was confirmed or suspected to have Coronavirus / COVID-19? No / Unsure 06/05/2021 2:01 PM DIRECTOR RADIATION ONCOLOGY documented as of this encounter Functional Status * RETIRED Are you deaf or do you have serious difficulty hearing Answer Date of Assessment Author Status No 07/30/2020 10:48 PM DIRECTOR RADIATION ONCOLOGY Acti ve * RETIRED Are you blind or do you have serious difficulty seeing, even when wearing glasses? Answer Date of Assessment Author Status No 07/30/2020 10:46 PM DIRECTOR RADIATION ONCOLOGY Acti ve * Do you have serious difficulty walking or climbing stairs? Answer Date of Assessment Author Status No 07/30/2020 10:46 PM DIRECTOR RADIATION ONCOLOGY Nella Le RN Active * Do you have difficulty dressing or bathing? Answer Date of Assessment Author Status No 07/30/2020 10:46 PM DIRECTOR RADIATION ONCOLOGY Nella Le RN Active * Because of [...] Contact Info) Description 09/25/2024 11:30 AM DIRECTOR RADIATION ONCOLOGY Appointment [facility] [address] [place] [address] Roberta Alex MD [address] [place] [address] 09/25/2024 11:40 AM DIRECTOR RADIATION ONCOLOGY Office Visit [facility] [place] [address] Roberta Alex MD [address] [place] [address] [id number] documented as of this encounter Visit Diagnoses Not on filedocumented in this encounter Additional Health Concerns Infection Onset Date Last Indicated Resolved Time MRSA 06/05/2021 06/05/2021 documented as of this encounter Care Teams Senior Chemical Engineer Relationship Specialty Start Date End Date Alejandro Blevins MD PCP - General FAMILY PRACTICE 12/10/19 documented as of this encounter
--- OUTSIDE RECORDS SUMMARY | 2024-07-11 05:41 | XMS_ITS | Encounter Summary ---
Author Organization [facility] Address [address] [place] [address]. [place] [address] [place] [address] Care Team Providers Care Audiovisual Lead Technician Name Role Phone Alejandro Blevins MD Primary Care Provider [phone] Reason for Visit * Reason Onset Date Comments Lab Results 11/18/2021 Encounter Details Date Type Department Care Team (Late st Contact Info) Description 11/18/[address] [place] [address] Betty Perez MA Lab Results Social History Tobacco Use Types Packs/Day Years Used Date Smoking Tobacco: Every Day Cigarettes Smokeless Tobacco: Never Alcohol Use Standard Drinks/Week Comments Not Currently 0 (1 standard drink = 0.6 oz pur e alcohol) Comments No Sex and Gender Information Value Date Recorded Sex Assigned at Not on file Legal Sex Female 11:30 PM CHILD GUIDANCE COUNSELOR Gender Identity Female 11/10/2021 3:09 PM CDT [...] Author Status No 07/30/2020 10:48 PM CHILD GUIDANCE COUNSELOR Acti ve * RETIRED Are you blind or do you have serious difficulty seeing, even when wearing glasses? Answer Date of Assessment Author Status No 07/30/2020 10:46 PM CHILD GUIDANCE COUNSELOR Acti ve * Do you have serious [...] Progress Notes * Betty Perez MA - 11/18/2021 8:53 AM CDT Left voicemail for patient to return call to clinic to discuss the following lab results and recommendations from Dr. Alex platelets again dropping. Since no bleeding and asymptomatic, we can continue watching CBC every 3 months- lab appt and once platelets <30K or bleeding like episodes, we can consider rx with Romiplostim or Eltrombopag. She can call us sooner- if any worsening bleeding or petechial rash documented in this encounter Plan of Treatment Upcoming Encounters Date Type Department Care Team (Late st Contact Info) Description 09/25/2024 11:30 AM CHILD GUIDANCE COUNSELOR Appointment [facility] [address] [place] [address] Roberta Alex MD [address] [place], [place] [address] 09/25/2024 11:40 AM CHILD GUIDANCE COUNSELOR Office Visit [facility] [address] [place] [address] Roberta Alex MD [address] [place], [place] [id number] documented as of this encounter Visit Diagnoses Not on filedocumented in this encounter Additional Health Concerns Infection Onset Date Last Indicated Resolved Time MRSA 06/05/2021 06/05/2021 documented as of this encounter Care Teams Audiovisual Lead Technician Relationship Specialty Start Date End Date Alejandro Blevins MD PCP - General FAMILY PRACTICE 12/10/19 documented as of this encounter
--- OUTSIDE RECORDS SUMMARY | 2024-07-11 05:41 | XMS_ITS | Encounter Summary ---
Author Organization [facility] Address [address] [place] [address]. [place], [place] [address] [place] [address] Care Team Providers Care Lead Handler Name Role Phone Alejandro Blevins MD Primary Care Provider [phone] Encounter Details Date Type Department Care Team (Latest Contact Info) Description 09/26/2021 Travel Social History Tobacco Use Types Packs/Day Years Used Date Smoking Tobacco: Every Day Cigarettes Smokeless Tobacco: Never Alcohol Use Standard Drinks/Week Comments Not Currently 0 (1 standard drink = 0.6 oz pur e alcohol) Comments No Sex and Gender Information Value Date Recorded Sex Assigned at Not on file Legal Sex Female 11:30 PM PRUNER Gender Identity Female 11/10/2021 3:09 PM CDT Sexual Orientation Straight 11/10/2021 3: 09 PM CDT COVID-19 Exposure Response Date Recorded In the last 10 days, have yo u been in contact with someone who was confirmed or suspected to have Coronavirus/COVID-19? No / Unsure 09/26/2021 12:13 AM PRUNER documented as of this encounter Functional Status * RETIRED Are you deaf or do you have serious difficulty hearing Answer Date of Assessment Author Status No 07/30/2020 10:48 PM PRUNER Acti ve * RETIRED Are you blind or do you have serious difficulty seeing, even when wearing glasses? Answer Date of Assessment Author Status No 07/30/2020 10:46 PM PRUNER Acti ve * Do you have serious difficulty walking or climbing stairs? Answer Date of Assessment Author Status No 07/30/2020 10:46 PM PRUNER Nella Le RN Active * Do you have difficulty dressing or bathing? Answer Date of Assessment Author Status No 07/30/2020 10:46 PM PRUNER Nella Le RN Active * Because of a physical, mental, or emotional condition, do you have difficulty doing errands alone such as visiting a doctor's office or shopping? Answer Date of Assessment Author Status No 07/30/2020 10:46 PM PRUNER Nella Le RN Active documented as of this encounter Mental Status * Because of a physical, mental, or emotional condition, do you have serious difficulty concentrating, remembering, or making decisions? Answer Entry Date Author Status No 07/30/2020 10:46 PM PRUNER Nella Le RN Active documented in this encounter Plan of Treatment Upcoming Encounters Date Type Department Care Team (Late st Contact Info) Description 09/25/2024 11:30 AM PRUNER Appointment [facility] [address] [place] [address] Roberta Alex MD [address] [place] [id number] 09/25/2024 11:40 AM PRUNER Office Visit [facility] [address] [place] [address] Roberta Alex MD [address] [place] [address] documented as of this encounter Visit Diagnoses Not on filedocumented in this encounter Additional Health Concerns Infection Onset Date Last Indicated Resolved Time MRSA 06/05/2021 06/05/2021 documented as of this encounter Care Teams Lead Handler Relationship Specialty Start Date End Date Alejandro Blevins MD PCP - General FAMILY PRACTICE 12/10/19 documented as of this encounter
--- OUTSIDE RECORDS SUMMARY | 2024-07-11 05:41 | XMS_ITS | Encounter Summary ---
Author Organization [facility] Address [address] [place] [address]. [place], [place] [address] [place] [address] Care Team Providers Care Aviation Maintenance Technician Name Role Phone Alejandro Blevins MD Primary Care Provider [phone] Encounter Details Date Type Department Care Team (Latest Contact Info) Description 01/26/2022 Travel Social History Tobacco Use Types Packs/Day Years Used Date Smoking Tobacco: Every Day Cigarettes Smokeless Tobacco: Never Alcohol Use Standard Drinks/Week Comments Not Currently 0 (1 standard drink = 0.6 oz pur e alcohol) Comments No Sex and Gender Information Value Date Recorded Sex Assigned at Not on file Legal Sex Female 11:30 PM BILINGUAL STUDENT TUTOR Gender Identity Female 11/10/2021 3:09 PM [...] Assessment Author Status No 07/30/2020 10:48 PM BILINGUAL STUDENT TUTOR Acti ve * RETIRED Are you blind or do you have serious difficulty seeing, even when wearing glasses? Answer Date of Assessment Author Status No 07/30/2020 10:46 PM BILINGUAL STUDENT TUTOR Acti ve * Do you have serious difficulty walking or climbing stairs? Answer Date of Assessment Author Status No 07/30/2020 10:46 PM BILINGUAL STUDENT TUTOR Nella Le RN Active * Do you have difficulty dressing or bathing? Answer Date of Assessment Author Status No 07/30/2020 10:46 PM BILINGUAL STUDENT TUTOR Nella Le RN Active * Because of a physical, mental, or emotional condition, do you have difficulty doing errands alone such as visiting a doctor's office or shopping? Answer Date of Assessment Author Status No 07/30/2020 10:46 PM BILINGUAL STUDENT TUTOR Nella Le RN Active documented as of this encounter Mental Status * Because of a physical, mental, or emotional condition, do you have serious difficulty concentrating, remembering, or making decisions? Answer Entry Date Author Status No 07/30/2020 10:46 PM BILINGUAL STUDENT TUTOR Nella Le RN Active documented in this encounter Plan of Treatment Upcoming Encounters Date Type Department Care Team (Late st Contact Info) Description 09/25/2024 11:30 AM BILINGUAL STUDENT TUTOR Appointment [facility] [address] [place] [address] Roberta Alex MD [address] [place] [address] 09/25/2024 11:40 AM BILINGUAL STUDENT TUTOR Office Visit [facility] [address] [place] [address] Roberta Alex MD [address] [place] [address] documented as of this encounter Visit Diagnoses Not on filedocumented in this encounter Additional Health Concerns Infection Onset Date Last Indicated Resolved Time MRSA 06/05/2021 06/05/2021 documented as of this encounter Care Teams Aviation Maintenance Technician Relationship Specialty Start Date End Date Alejandro Blevins MD PCP - General FAMILY PRACTICE 12/10/19 documented as of this encounter
--- OUTSIDE RECORDS SUMMARY | 2024-07-11 05:41 | XMS_ITS | Encounter Summary ---
Author Organization [facility] Address [address] [place] [address]. [place] [address] [place] [address] Care Team Providers Care Soapstoner Name Role Phone Alejandro Blevins MD Primary Care Provider [phone] Encounter Details Date Type Department Care Team (Latest Contact Info) Description 12/23/2022 10:50 AM CDT - 12/23/2022 10:59 AM CDT Hospital Encounter [facility] [address] [place] [address] [place] [address] Carey Pang, [place]MANUEL [address] [place] [phone] Discharge Disposition: Home or Self Care (Routine Discharge) Social History Tobacco Use Types Packs/Day Years Used Date Smoking Tobacco: Every Day Cigarettes Smokeless Tobacco: Never Alcohol Use Standard Drinks/Week Comments Not Currently 0 (1 standard drink = 0.6 oz pur e alcohol) Comments No Sex and Gender Information Value Date Recorded Sex Assigned at Not on file Legal Sex Female 11:30 PM CAUSTICS LOADER Gender Identity Female 11/10/2021 3:09 PM CDT [...] Assessment Author Status No 07/30/2020 10:48 PM CAUSTICS LOADER Acti ve * RETIRED Are you blind or do you have serious difficulty seeing, even when wearing glasses? Answer Date of Assessment Author Status No 07/30/2020 10:46 PM CAUSTICS LOADER Acti ve * Do you have serious [...] (PRILOSEC) 20 MG capsuleIndication s:Acute ITP (CMS/HCC [facility]/HCC) Take 1 capsule (20 mg total) by mouth daily. 30 capsule 1 12/07/2022 04/11/2023 documented as of this encounter Plan of Treatment Upcoming Encounters Date Type Department Care Team (Late st Contact Info) Description 09/25/2024 11:30 AM CAUSTICS LOADER Appointment [facility] [place] [address] Roberta Alex MD [address] [place] [address] 09/25/2024 11:40 AM CAUSTICS LOADER Office Visit [facility] [place] [address] Roberta Aelx MD [address] [place] [address] documented as of this encounter Procedures Procedure Name Priority Date/Time Associated Diagnosis Comments CBC W/DIFF AUTOMATED Routine 12/23/2022 11:26 AM CDT Thrombocytopenia documented in this encounter Results * (ABNORMAL) CBC W/DIFF AUTOMATED (12/23/2022 11:26 AM CDT) WBC 6.65 4.00 - 10.80 x10'3/uL 12/23/2022 12:43 PM CDT [facility] RBC 4.60 4.10 - 5.40 x10'6/uL 12/23/2022 12:43 PM CDT [facility] HGB 13.0 12.0 - 16.0 G/DL 12/23/2022 12:43 PM CDT [facility] HCT 41.5 36.0 - 47.0 % 12/23/2022 12:43 PM CDT [facility] MCV 90.2 78.0 - 100.0 FL 12/23/2022 12:43 PM CDT [facility] MCH 28.3 27.0 - 31.0 PG 12/23/2022 12:43 PM CDT [facility] MCHC 31.3(L) 33.0 - 36.0 G/DL 12/23/2022 12:43 PM CDT [facility] RDW 12.8 11.5 - 14.5 % 12/23/2022 12:43 PM CDT [facility] PLT 30(L) 150 - 350 x10'3/uL 12/23/2022 12:43 PM CDT [facility] MPV RESULTS NOT AVAILABLE 7.4 - 10.4 FL 12/23/2022 12:43 PM CDT [facility] CBC COMMENT NORMAL REFERENCE RANGE NOT ESTABLISHED FOR THE PROPORTIONAL LEUKOCYTE DIFFERENTIAL. 12/23/2022 12:43 PM CDT [facility] NEUTROPHILS % 55.9 % 12/23/2022 12:43 PM CDT [facility] LYMPHOCYTES % 27.5 % 12/23/2022 12:43 PM CDT [facility] MONOCYTES % 7.2 % 12/23/2022 12:43 PM CDT [facility] EOSINOPHILS % 8.3 % 12/23/2022 12:43 PM CDT [facility] BASOPHILS % 0.9 % 12/23/2022 12:43 PM CDT [facility] IMMATURE GRANS % 0.2 % 12/24/19 12:43 PM CDT [facility] NRBC 0.0 % 12/23/2022 12:43 PM CDT [facility] ABS. NEUTROPHILS 3.72 1.60 - 8.30 x10'3/uL 12/23/2022 12:43 PM CDT [facility] ABS. LYMPHOCYTES 1.83 0.80 - 4.70 x10'3/uL 12/23/2022 12:43 PM CDT [facility] ABS. MONOCYTES 0.48 0.00 - 1.50 x10'3/uL 12/23/2022 12:43 PM CDT [facility] ABS. EOSINOPHILS 0.55(H) 0.00 - 0.40 x10'3/uL 12/23/2022 12:43 PM CDT [facility] ABS. BASOPHILS 0.06 0.00 - 0.20 x10'3/uL 12/23/2022 12:43 PM CDT [facility] ABS. IMMATURE GRANULOCYTES 0.01 0.00 - 0.03 x10'3/uL 12/23/2022 12:43 PM CDT [facility] ABS. NUCLEATED RBC'S 0.00 0.00 x10'3/uL 12/23/2022 12:43 PM CDT [facility] PLT MORPH. DECREASED 12/23/2022 12:43 PM CDT [facility] RBC MORPHOLOGY NORMAL 12/23/2022 12:43 PM CDT [facility] 12/23/2022 11:2 6 AM CDT us [facility] Final Res ult [facility] [address] [place] [address], documented in this encounter Visit Diagnoses Diagnosis Thrombocytopenia (CMS/HCC) Thrombocytopenia, unspecified documented in this encounter Additional Health Concerns Infection Onset Date Last Indicated Resolved Time MRSA 06/05/2021 06/05/2021 documented as of this encounter Care Teams Soapstoner Relationship Specialty Start Date End Date Alejandro Blevins MD PCP - General FAMILY PRACTICE 12/10/19 documented as of this encounter
--- OUTSIDE RECORDS SUMMARY | 2024-07-11 05:41 | XMS_ITS | Encounter Summary ---
Author Organization [facility] Address [address] [place] [address]. [place], [place] [address] [place] [address] Care Team Providers Care Tongue And Quarter Stitcher Name Role Phone Alejandro Blevins MD Primary Care Provider [phone] Encounter Details Date Type Department Care Team (Latest Contact Info) Description 10/07/2022 Travel Social History Tobacco Use Types Packs/Day Years Used Date Smoking Tobacco: Every Day Cigarettes Smokeless Tobacco: Never Alcohol Use Standard Drinks/Week Comments Not Currently 0 (1 standard drink = 0.6 oz pur e alcohol) Comments No Sex and Gender Information Value Date Recorded Sex Assigned at Not on file Legal Sex Female 11:30 PM SUPPLY CHAIN TECHNICIAN Gender Identity Female 11/10/2021 3:09 PM CDT Sexual Orientation Straight 11/10/2021 3: 09 PM CDT COVID-19 Exposure Response Date Recorded In the last 10 days, have yo u been in contact with someone who was confirmed or suspected to have Coronavirus/COVID-19? No / Unsure 10/07/2022 8:19 AM CDT documented as of this encounter Functional Status * RETIRED Are you deaf or do you have serious difficulty hearing Answer Date of Assessment Author Status No 07/30/2020 10:48 PM SUPPLY CHAIN TECHNICIAN Acti ve * RETIRED Are you blind or do you have serious difficulty seeing, even when wearing glasses? Answer Date of Assessment Author Status No 07/30/2020 10:46 PM SUPPLY CHAIN TECHNICIAN Acti ve * Do you have serious difficulty walking or climbing stairs? Answer Date of Assessment Author Status No 07/30/2020 10:46 PM SUPPLY CHAIN TECHNICIAN Nella Le RN Active * Do you have difficulty dressing or bathing? Answer Date of Assessment Author Status No 07/30/2020 10:46 PM SUPPLY CHAIN TECHNICIAN Nella Le RN Active * Because of a physical, mental, or emotional condition, do you have difficulty doing errands alone such as visiting a doctor's office or shopping? Answer Date of Assessment Author Status No 07/30/2020 10:46 PM SUPPLY CHAIN TECHNICIAN Nella Le RN Active documented as of this encounter Mental Status * Because of a physical, mental, or emotional condition, do you have serious difficulty concentrating, remembering, or making decisions? Answer Entry Date Author Status No 07/30/2020 10:46 PM SUPPLY CHAIN TECHNICIAN Nella Le RN Active documented in this encounter Plan of Treatment Upcoming Encounters Date Type Department Care Team (Late st Contact Info) Description 09/25/2024 11:30 AM SUPPLY CHAIN TECHNICIAN Appointment [facility] [address] [place] [address] Roberta Alex MD [address] [place] [id number] 09/25/2024 11:40 AM SUPPLY CHAIN TECHNICIAN Office Visit [facility] [address] [place] [address] Roberta Alex MD [address] [place] [address] documented as of this encounter Visit Diagnoses Not on filedocumented in this encounter Additional Health Concerns Infection Onset Date Last Indicated Resolved Time MRSA 06/05/2021 06/05/2021 documented as of this encounter Care Teams Tongue And Quarter Stitcher Relationship Specialty Start Date End Date Alejandro Blevins MD PCP - General FAMILY PRACTICE 12/10/19 documented as of this encounter
--- OUTSIDE RECORDS SUMMARY | 2024-07-11 05:41 | XMS_ITS | Encounter Summary ---
Author Organization [facility] Address [address] [place] [address]. [place] [address] [place] [address] Care Team Providers Care Compliance Spec Name Role Phone Alejandro Blevins MD Primary Care Provider [phone] Reason for Visit * Reason Onset Date Comments Appointment Reminder 12/30/2022 Encounter Details Date Type Department Care Team ([facility] st Contact Info) Description 12/30/[address] [place] [address] Carey Pang, EMANUEL [address] [place] [phone] Appointment Reminder Social History Tobacco Use Types Packs/Day Years Used Date Smoking Tobacco: Every Day Cigarettes Smokeless Tobacco: Never Alcohol Use Standard Drinks/Week Comments Not Currently 0 (1 standard drink = 0.6 oz pur e alcohol) Comments No Sex and Gender Information Value Date Recorded Sex Assigned at Not on file Legal Sex Female 11:30 PM METAL SLITTER Gender Identity Female 11/10/2021 3:09 PM CDT [...] Assessment Author Status No 07/30/2020 10:48 PM METAL SLITTER Acti ve * RETIRED Are you blind or do you have serious difficulty seeing, even when wearing glasses? Answer Date of Assessment Author Status No 07/30/2020 10:46 PM METAL SLITTER Acti ve * Do you have serious [...] Progress Notes * Tejinder Berg RN - 12/30/2022 8:58 AM CDT I called Radiology on the CT that was ordered 12/08/22, Smitha said she has called patient numerous times and left voice messages for patient to call back. Smitha even called up to cancer center when patient was here to have her call Radiology. Still no call returned by patient. documented in this encounter Plan of Treatment Upcoming Encounters Date Type Department Care Team (Late st Contact Info) Description 09/25/2024 11:30 AM METAL SLITTER Appointment [facility] [address] [place] [address] Roberta Alex MD [address] [place] [address] 09/25/2024 11:40 AM METAL SLITTER Office Visit [facility] [address] [place] [address] Roberta Alex MD [address] [place] [address] documented as of this encounter Visit Diagnoses Not on filedocumented in this encounter Additional Health Concerns Infection Onset Date Last Indicated Resolved Time MRSA 06/05/2021 06/05/2021 documented as of this encounter Care Teams Compliance Spec Relationship Specialty Start Date End Date Alejandro Blevins MD PCP - General FAMILY PRACTICE 12/10/19 documented as of this encounter
--- OUTSIDE RECORDS SUMMARY | 2024-07-11 05:41 | XMS_ITS | Encounter Summary ---
Author Organization [facility] Address [address] [place] [address]. [place], [place] [address] [place] [address] Care Team Providers Care Shade Hanger Name Role Phone Alejandro Blevins MD Primary Care Provider [phone] Reason for Visit * Reason Onset Date Comments Disability Form 10/07/2022 Encounter Details Date Type Department Care Team (Late st Contact Info) Description 10/07/2022 Telephone [facility] [place] [id number] Michaela Fitzgerald RNFA Disability Form Social History Tobacco Use Types Packs/Day Years Used Date Smoking Tobacco: Every Day Cigarettes Smokeless Tobacco: Never Alcohol Use Standard Drinks/Week Comments Not Currently 0 (1 standard drink = 0.6 oz pur e alcohol) Comments No Sex and Gender Information Value Date Recorded Sex Assigned at Not on file Legal Sex Female 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 Answer Date of Assessment Author Status No 07/30/2020 10:46 PM ELECTROMECHANICAL INSPECTOR Acti ve * Do you have [...] encounter Progress Notes * LUCIO Irvin - 10/07/2022 3:16 PM CDT Leave paperwork emailed as requested by patient at this time. Patient will pick out hand tomorrow. documented in this encounter Plan of Treatment Upcoming Encounters Date Type Department Care Team (Late st Contact Info) Description 09/25/2024 11:30 AM ELECTROMECHANICAL INSPECTOR Appointment [facility] [address] [place] [address] Roberta Alex MD [address] [place] [address] 09/25/2024 11:40 AM ELECTROMECHANICAL INSPECTOR Office Visit [facility] [address] [place] [address] Roberta Alex MD [address] [place] [address] documented as of this encounter Visit Diagnoses Not on filedocumented in this encounter Additional Health Concerns Infection Onset Date Last Indicated Resolved Time MRSA 06/05/2021 06/05/2021 documented as of this encounter Care Teams Shade Hanger Relationship Specialty Start Date End Date Alejandro Blevins MD PCP - General FAMILY PRACTICE 12/10/19 documented as of this encounter
--- OUTSIDE RECORDS SUMMARY | 2024-07-11 05:41 | XMS_ITS | Encounter Summary ---
Author Organization [facility] Address [address] [place] [address]. [place], [place] [id number] [place] [address] Care Team Providers Care Administrative Resident Name Role Phone Alejandro Blevins MD Primary Care Provider [phone] Reason for Referral * Occupational Therapy (Routine) - Closed Specialty Diagnoses / Procedures Referred By Scarlet guzman Referred To Contact Occupational Therapy Diagnoses Tendinitis of right rotator cuff Medial epicondylitis of right elbow Procedures OFFICE/OUTPT VISIT,NEW,LEVL III OFFICE/OUTPT VISIT,NEW,LEVL IV OFFICE/OUTPT VISIT,NEW,LEVL V OFFICE/OUTPT VISIT,EST,LEVL III OFFICE/OUTPT VISIT,EST,LEVL IV OFFICE/OUTPT VISIT,EST,LEVL V Zeeshan Anderson FNP-BC [address] [place] [address] Phone: tel: fax: [facility] [address] [place] [address] Phone: tel: fax: Referral ID Status Reason Start Date Expiration Date V isits Requested Visits Authorized [id number] Closed Specialty Services 10/07/2022 11/07/2023 1 1 * Imaging (Routine) - Closed Specialty Diagnoses / Procedures Referred By Scarlet guzman Referred To Contact RADIOLOGY Diagnoses Tendinitis of right rotator cuff Procedures MRI SHOULDER RT WO CON Zeeshan Anderson FNP-BC [address] [place] [address] Phone: tel: fax: Referral ID Status Reason Start Date Expiration Date Visits Re quested Visits Authorized [id number] Closed 10/07/2022 10/08/2023 1 1 Reason for Visit * Reason Comments New Patient Shoulder Pain DOI 08/25/2022 RIGHT Elbow Pain DOI 09/13/2022 RIGHT Encounter Details Date Type Department Care Team (Late st Contact Info) Description 10/07/2022 8:30 AM CDT Office Visit [address], [address] [place] [address] Zeeshan Anderson FNP-BC [address] [place] [address] New Patient; Shoulder Pain (DOI 08/25/2022 RIGHT ); Elbow Pain (DOI 09/13/2022 RIGHT) Social History Tobacco Use Types Packs/Day Years Used Date Smoking Tobacco: Every Day Cigarettes Smokeless Tobacco: Never Alcohol Use Standard Drinks/Week Comments Not Currently 0 (1 standard drink = 0.6 oz pur e alcohol) Comments No Sex and Gender Information Value Date Recorded Sex Assigned at Not on file 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 Gender Identity Female 11/10/2021 3:09 PM [...] Sign Reading Time Taken Comments Blood Pressure - - Pulse - - Temperature - - Respiratory Rate - - Oxygen Saturation - - Inhaled Oxygen Concentration - - Weight 71.7 kg (158 lb) 10/07/2022 8:26 AM CDT Height 160 cm (5' 3 ) 10/07/2022 8:26 AM CDT Body Mass Index 27.99 10/07/2022 8:26 AM CDT documented in this encounter Functional Status * RETIRED Are you deaf or do you have serious difficulty hearing Answer Date of Assessment Author Status No 07/30/2020 10:48 PM WHEEL AND CASTER REPAIRER Acti ve * RETIRED Are you blind or do you have serious difficulty seeing, even when wearing glasses? Answer Date of Assessment Author Status No 07/30/2020 10:46 PM WHEEL AND CASTER REPAIRER Acti ve * Do you have [...] documented in this encounter Progress Notes * Zeeshan Anderson, APPLICATIONS PROJECT MANAGER-BC - 10/07/2022 8:30 AM CDT Chief Complaint: New Patient, Shoulder Pain (DOI 08/25/2022 RIGHT ), and Elbow Pain (DOI 09/13/2022 RIGHT) History of Present Illness: Hillary Smalls is a 32-year-old female who presents to the office for New Patient, Shoulder Pain (DOI 08/25/2022 RIGHT ), and Elbow Pain (DOI 09/13/2022 RIGHT) New Patient comes in the office today for RIGHT shoulder and RIGHT elbow pain. Patient states on 08/25/2022 she was at work and tripped and fell to the racking at [employer]. She states then on the 09/13/2022 she noticed pain in the RIGHT elbow. She states went to [facility] urgent [facility] on 09/14/2022. She states is only supposed to be wearing a sling for comfort. She states had intial numbness and tingling. She states had bruising in the beginning. She states had swelling but none now. She is not inPT. She denies use of any assistive devices. She denies any surgery. She states has some night pain. She states is RIGHT hand dominant. She is working right now but with restrictions of not using theRIGHT arm. She states has pain when lifting things or twisting caps off bottles. ROS: See HPI for pertinent positives Problem List: Patient Active Problem List Diagnosis ??? Anemia ??? Hepatitis C virus infection without hepatic coma ??? Polysubstance abuse (CMS/HCC) ??? Thrombocytopenia affecting (CMS/HCC) ??? Transaminitis ??? Twin ??? Iron deficiency anemia secondary to inadequate dietary iron intake ??? Other dietary vitamin B12 deficiency anemia ??? Chronic ITP (idiopathic thrombocytopenia) (CMS/HCC) ??? Thrombocytopenia (CMS/HCC) ??? Anti-cardiolipin antibody positive ??? Iron deficiency anemia due to chronic blood loss ??? Tendinitis of right rotator cuff ??? Medial epicondylitis of right elbow History: Past Medical History: Diagnosis Date ??? Acute ITP (CMS/HCC) ??? Anemia ??? History of blood transfusion ??? Iron deficiency anemia due to chronic blood loss 12/31/2020 History reviewed. No pertinent surgical history. Family History Problem Relation Name Age of Onset ??? No Known Problems Mother ??? No Known Problems Father ??? No Known Problems Sister ??? No Known Problems Brother Family Status Relation Name Status ??? Mother Alive ??? Father Alive ??? Sister Alive ??? Brother Alive Social History Socioeconomic History ??? Marital status: Single Tobacco Use ??? Smoking status: Every Day Packs/day: 0.50 Types: Cigarettes ??? Smokeless tobacco: Never Vaping Use ??? Vaping Use: Never used Substance and Sexual Activity ??? Alcohol use: Not Currently ??? Drug use: Not Currently Medications: No current outpatient medications on file. Allergies Allergen Reactions ??? Bee Venom Anaphylaxis ??? Iodinated Contrast Media Anaphylaxis ??? Shellfish Allergy Anaphylaxis Objective: Body mass index is 27.99 kg/m??. Last Recorded Weight 10/07/22 0826 Weight: 71.7 kg (158 lb) Physical exam: Constitutional: Alert and in no acute distress. Neurological: The patient was oriented to person, place, and time. Eyes: The sclera and conjunctiva were normal ENT: Hearing was normal. Neck: The appearance of the neck was normal. Cardiovascular: Normal pulses. Pulmonary: No respiratory distress. Skin: No injuries or skin lesion. Musculoskeletal: Exam of Right shoulder today reveals diffuse tenderness with palpation greatest tenderness at the posterior shoulder, active range of motion forward flexion 120 (PROM 160), [id number], external rotation limited secondary to pain, internal rotation to posterior lateral beltline, slight pain external rotation resistance, slight pain internal rotation resistance, Mild weak cuff strength secondary to pain, Negative drop arm, Positive lift off, pain with cuff resistance, negative speeds, Positive Schmidt, palpable radial pulse. Exam of RIGHT elbow today reveals tenderness over medial epicondyle with palpation, negative compression and Tinel's, full elbow range of motion, no increased pain with valgus or varus stress, able to make a fist, pain with resisted supination pronation, no swelling or ecchymosis, palpable radial pulse. Results: X-ray of right shoulder today demonstrates no acute or healing bony injury or dislocation and minimal degenerative changes. X-ray of right elbow today demonstrates no acute or healing bony injury or dislocation and minimal degenerative changes. Assessment: Encounter Diagnose(s) ICD-10-CM ICD-9-CM SNOMED CT(R) 1. Tendinitis of right rotator cuff M75.81 726.10 TENDINITIS OF RIGHT ROTATOR CUFF MRI SHOULDER RT WO CON Ambulatory referral to Occupational Therapy 2. Medial epicondylitis of right elbow M77.01 726.31 MEDIAL EPICONDYLITIS OF RIGHT HUMERUS Ambulatory referral to Occupational Therapy Plan: Reviewed imaging with patient in the office today. Patient's initial injury occurred roughly 6 weeks ago and I have recommended since she is not seeing any relief since her injury to proceed with a MRI for further evaluation of rotator cuff. She is also showing signs of medial epicondylitis as well. I have recommended discontinuation of the sling and getting her started in physical therapy while we are waiting for the MRI to be approved. She was provided a note for work with restrictions. She will follow-up once her MRI has been completed to discuss results. Follow up: Return for Visit after MRI has been obtained. GARTH MARTINEZ-ANETTE documented in this encounter Plan of Treatment Upcoming Encounters Date Type Department Care Team (Late st Contact Info) Description 09/25/2024 11:30 AM WHEEL AND CASTER REPAIRER Appointment [facility] [address] [place] [address] Roberta Alex MD [address] [place] [address] 09/25/2024 11:40 AM WHEEL AND CASTER REPAIRER Office Visit [facility] [address] [place] [address] Roberta Alex MD [address] [place] [address] Scheduled Referrals Name Type Priority Associated Diagnoses Orde r Schedule Ambulatory referral to Occupational Therapy Referral Routine Tendinitis of right rotator cuff Medial epicondylitis of right elbow Ordered: 10/07/2022 documented as of this encounter Results * MRI SHOULDER RT WO CON (10/22/2022 11:10 AM CDT) Anatomical Region Laterality Modality Shoulder Magnetic Resonan ce 10/22/2022 3:49 PM CDT Impressions 10/22/2022 4:02 PM CDT IMPRESSION: Findings suggesting mild tendinitis or tendinosis supraspinatus tendon. No evidence of full-thickness rotator cuff tear. Ordered By: ZEESHAN ANDERSON Interpreted By: Gal Díaz MD, 10/22/2022 3:49 PM Narrative 10/22/2022 4:02 PM CDT 10/22/2022, 10:33 AM. HISTORY: Tendinitis rotator cuff right shoulder. Right shoulder pain extending down to the elbow. Question biceps bursitis or tendinitis. EXAM: MRI of the right shoulder without contrast. MR imaging of the right shoulder was performed in the axial, the oblique sagittal and oblique coronal planes utilizing T1, fat sat proton density, T2 and fat-sat T2 sequence imaging. No comparison. Correlation to radiographic imaging 10/07/2022. FINDINGS: Early heterogeneous marrow signal in the proximal diaphysis of the humerus and the lateral aspect of the humeral head and greater tuberosity of the humerus which may indicate early marrow conversion from red marrow to fatty marrow. This showed be normal in a patient of this study. Slight superior subluxation of the head of humerus on the glenoid the scapula minimally narrowing the subacromial space. Slight heterogeneous signal in the supraspinatus tendon suggesting tendinitis or tendinosis. No evidence of rotator cuff tear. Tiny glenohumeral joint effusion. No fluid in the subacromial nor subdeltoid bursa. No remarkable arthritis at the acromioclavicular joint. The tendon the long head of biceps appears normal and is normally positioned in the bicipital groove of the humerus. No evidence of tendinitis or tenosynovitis about the tendon of long head of the biceps. No periarticular soft tissue mass. No downward sloping or anterior location of the acromion process of the scapula. Procedure Note Gal Díaz MD - 10/22/2022 10/22/2022, 10:33 AM. HISTORY: Tendinitis rotator cuff right shoulder. Right shoulder painextending down to the elbow. Question biceps bursitis or tendinitis. EXAM: MRI of the right shoulder without contrast. MR imaging of the right shoulder was performed in the axial, the obliquesagittal and oblique coronal planes utilizing T1, fat sat proton density,T2 and fat-sat T2 sequence imaging. No comparison. Correlation toradiographic imaging 10/07/2022. FINDINGS: Early heterogeneous marrow signal in the proximal diaphysis ofthe humerus and the lateral aspect of the humeral head and greatertuberosity of the humerus which may indicate early marrow conversion fromred marrow to fatty marrow. This showed be normal in a patient of thisstudy. Slight superior subluxation of the head of humerus on the glenoidthe scapula minimally narrowing the subacromial space. Slightheterogeneous signal in the supraspinatus tendon suggesting tendinitis ortendinosis. No evidence of rotator cuff tear. Tiny glenohumeral jointeffusion. No fluid in the subacromial nor subdeltoid bursa. No remarkablearthritis at the acromioclavicular joint. The tendon the long head ofbiceps appears normal and is normally positioned in the bicipital grooveof the humerus. No evidence of tendinitis or tenosynovitis about thetendon of long head of the biceps. No periarticular soft tissue mass. Nodownward sloping or anterior location of the acromion process of thescapula. IMPRESSION: Findings suggesting mild tendinitis or tendinosis supraspinatus tendon. Noevidence of full-thickness rotator cuff tear. Ordered By: ZEESHAN ANDERSON Interpreted By: Gal Díaz MD, 10/22/2022 3:49 PM Zeeshan Anderson APPLICATIONS PROJECT MANAGER-BC MRI Final Resu lt documented in this encounter Visit Diagnoses Diagnosis Tendinitis of right rotator cuff- Primary Disorders of bursae and tendons in shoulder region, unspecified Medial epicondylitis of right elbow Medial epicondylitis of elbow Tendinitis of right rotator cuff Disorders of bursae and tendons in shoulder region, unspecified documented in this encounter Additional Health Concerns Infection Onset Date Last Indicated Resolved Time MRSA 06/05/2021 06/05/2021 documented as of this encounter Care Teams Administrative Resident Relationship Specialty Start Date End Date Alejandro Blevins MD PCP - General FAMILY PRACTICE 12/10/19 documented as of this encounter
--- OUTSIDE RECORDS SUMMARY | 2024-07-11 05:41 | XMS_ITS | Encounter Summary ---
Author Organization [facility] Address [address] [place] [address]. [place], [place] [address] [place] [address] Care Team Providers Care Gaming Dealer Name Role Phone Alejandro Blevins MD Primary Care Provider [phone] Encounter Details Date Type Department Care Team (Late st Contact Info) Description 10/07/2022 8:25 AM CDT - 10/07/2022 11:59 PM CDT Hospital Encounter [facility] [address] [place] [address] Zeeshan Anderson, [facility]- [address] [place] [address] Discharge Disposition: Home or Self Care (Routine Discharge) Social History Tobacco Use Types Packs/Day Years Used Date Smoking Tobacco: Every Day Cigarettes Smokeless Tobacco: Never Alcohol Use Standard Drinks/Week Comments Not Currently 0 (1 standard drink = 0.6 oz pur e alcohol) Comments No Sex and Gender Information Value Date Recorded Sex Assigned at Not on file 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 Answer Date of Assessment Author Status No 07/30/2020 10:46 PM INSTRUCTOR KINDERGARTEN Acti ve * Do you have serious [...] st Contact Info) Description 09/25/2024 11:30 AM INSTRUCTOR KINDERGARTEN Appointment [facility] [address] [place] [address] Roberta Alex MD [address] [place] [address] 09/25/2024 11:40 AM INSTRUCTOR KINDERGARTEN Office Visit [facility] [place] [address] [place] [address] Roberta Alex MD [address] [place] [address] documented as of this encounter Procedures Procedure Name Priority Date/Time Associated Diagnosis Comments XR SHOULDER RT MIN 2V Routine 10/07/2022 8:47 AM CDT Acute pain of right shoulder XR ELBOW RT M3V Routine 10/07/2022 8:47 AM CDT Right elbow pain documented in this encounter Results * XR SHOULDER RT MIN 2V (10/07/2022 8:47 AM CDT) Anatomical Region Laterality Modality Shoulder Radiographic Alyssa ging 10/07/2022 1:01 PM CDT Impressions 10/07/2022 1:03 PM CDT IMPRESSION: 1. No acute fracture or dislocation. Ordered By: ZEESHAN ANDERSON Interpreted By: Tyrone Silvestre MD, 10/07/2022 1:01 PM Narrative 10/07/2022 1:03 PM CDT Examination: X-ray right shoulder, 3 views. Exam time: 10/07/2022 Clinical history: Right shoulder pain. ??patient states she jammed her right shoulder against something at work in August, continues to have right shoulder pain down right arm to elbow Comparison: None. Technique: AP, scapular Y, and axillary ??views of right shoulder obtained. Findings: No acute fracture. No dislocation. No evidence of bone destruction or arthropathy. Procedure Note Tyrone Silvestre MD - 10/07/2022 Examination: X-ray right shoulder, 3 views. Exam time: 10/07/2022 Clinical history: Right shoulder pain. patient states she jammed herright shoulder against something at work in August, continues to haveright shoulder pain down right arm to elbow Comparison: None. Technique: AP, scapular Y, and axillary views of right shoulderobtained. Findings: No acute fracture. No dislocation. No evidence of bone destruction orarthropathy. IMPRESSION: 1. No acute fracture or dislocation. Ordered By: ZEESHAN ANDERSON Interpreted By: Tyrone Silvestre MD, 10/07/2022 1:01 PM Zeeshan Anderson DRY CLEANING COUNTER CLERK-BC GENERAL IMAGING Final Resu lt * XR ELBOW RT M3V (10/07/2022 8:47 AM CDT) Anatomical Region Laterality Modality Elbow Radiographic Alyssa ging 10/07/2022 1:00 PM CDT Impressions 10/07/2022 1:01 PM CDT IMPRESSION: No acute bony abnormality. Ordered By: ZEESHAN ANDERSON Interpreted By: Tyrone Silvestre MD, 10/07/2022 1:00 PM Narrative 10/07/2022 1:01 PM CDT Examination: Right elbow 3 views Exam time: 10/07/2022 Clinical history: Right elbow pain patient states she jammed her right shoulder against something at work in August, continues to have right shoulder pain down right arm to elbow Comparison: None. Technique: AP, oblique and lateral views of the right elbow were obtained. Findings: No acute fracture. No dislocation. No evidence of bone destruction or erosive arthropathy. No large joint effusion. No pathologic soft tissue calcification. Procedure Note Tyrone Silvestre MD - 10/07/2022 Examination: Right elbow 3 views Exam time: 10/07/2022 Clinical history: Right elbow pain patient states she jammed her rightshoulder against something at work in August, continues to have rightshoulder pain down right arm to elbow Comparison: None. Technique: AP, oblique and lateral views of the right elbow wereobtained. Findings: No acute fracture. No dislocation. No evidence of bonedestruction or erosive arthropathy. No large joint effusion. No pathologicsoft tissue calcification. IMPRESSION: No acute bony abnormality. Ordered By: ZEESHAN ANDERSON Interpreted By: Tyrone Silvestre MD, 10/07/2022 1:00 PM us Zeeshan Anderson DRY CLEANING COUNTER CLERK-BC GENERAL IMAGING Final Resu lt documented in this encounter Visit Diagnoses Diagnosis Right elbow pain Pain in joint, upper arm Acute pain of right shoulder documented in this encounter Additional Health Concerns Infection Onset Date Last Indicated Resolved Time MRSA 06/05/2021 06/05/2021 documented as of this encounter Care Teams Gaming Dealer Relationship Specialty Start Date End Date Alejandro Blevins MD PCP - General FAMILY PRACTICE 12/10/19 documented as of this encounter
--- OUTSIDE RECORDS SUMMARY | 2024-07-11 05:41 | XMS_ITS | Encounter Summary ---
Author Organization [facility] Address [address] [place] [address]. [place] [address] [place] [address] Care Team Providers Care Music Education Director Name Role Phone Alejandro Blevins MD Primary Care Provider [phone] Encounter Details Date Type Department Care Team (Late st Contact Info) Description 12/07/2022 Orders Only [address] [place] [address] Carey Pang, APNP [address] [place] [phone] Social History Tobacco Use Types Packs/Day Years Used Date Smoking Tobacco: Every Day Cigarettes Smokeless Tobacco: Never Alcohol Use Standard Drinks/Week Comments Not Currently 0 (1 standard drink = 0.6 oz pur e alcohol) Comments No Sex and Gender Information Value Date Recorded Sex Assigned at Not on file Legal Sex Female 11:30 PM TECHNICAL SUPPORT INTERN Gender Identity Female 11/10/2021 3:09 PM [...] Assessment Author Status No 07/30/2020 10:48 PM TECHNICAL SUPPORT INTERN Acti ve * RETIRED Are you blind or do you have serious difficulty seeing, even when wearing glasses? Answer Date of Assessment Author Status No 07/30/2020 10:46 PM TECHNICAL SUPPORT INTERN Acti ve * Do you have [...] Date Type Department Care Team (Late st [facility] Info) Description 09/25/2024 11:30 AM TECHNICAL SUPPORT INTERN Appointment [facility] [address] [place] [address] Roberta Alex MD [address] [place] [address] 09/25/2024 11:40 AM TECHNICAL SUPPORT INTERN Office Visit [facility] [address] [place] [address] Roberta Alex MD [address] [place] [address] documented as of this encounter Results * (ABNORMAL) CBC W/DIFF AUTOMATED (01/03/2023 12:55 PM CDT) WBC 10.60 4.00 - 10.80 x10'3/uL 01/03/2023 1:54 PM CDT [facility] RBC 4.97 4.10 - 5.40 x10'6/uL 01/03/2023 1:54 PM CDT [facility] HGB 14.4 12.0 - 16.0 G/DL 01/03/2023 1:54 PM CDT [facility] HCT 44.5 36.0 - 47.0 % 01/03/2023 1:54 PM CDT [facility] MCV 89.5 78.0 - 100.0 FL 01/03/2023 1:54 PM CDT [facility] MCH 29.0 27.0 - 31.0 PG 01/03/2023 1:54 PM CDT [facility] MCHC 32.4(L) 33.0 - 36.0 G/DL 01/03/2023 1:54 PM CDT [facility] RDW 12.7 11.5 - 14.5 % 01/03/2023 1:54 PM CDT [facility] PLT 35(L) 150 - 350 x10'3/uL 01/03/2023 1:54 PM CDT [facility] MPV RESULTS NOT AVAILABLE 7.4 - 10.4 FL 01/03/2023 1:54 PM CDT [facility] CBC COMMENT NORMAL REFERENCE RANGE NOT ESTABLISHED FOR THE PROPORTIONAL LEUKOCYTE DIFFERENTIAL. 01/03/2023 1:54 PM CDT [facility] NEUTROPHILS % 71.6 % 01/03/2023 1:56 PM CDT [facility] LYMPHOCYTES % 18.0 % 01/03/2023 1:56 PM CDT [facility] MONOCYTES % 5.3 % 01/03/2023 1:56 PM CDT [facility] EOSINOPHILS % 4.2 % 01/03/2023 1:56 PM CDT [facility] BASOPHILS % 0.6 % 01/03/2023 1:56 PM CDT [facility] IMMATURE GRANS % 0.3 % 01/04/20 1:56 PM CDT [facility] NRBC 0.0 % 01/03/2023 1:56 PM CDT [facility] ABS. NEUTROPHILS 7.59 1.60 - 8.30 x10'3/uL 01/03/2023 1:56 PM CDT [facility] ABS. LYMPHOCYTES 1.91 0.80 - 4.70 x10'3/uL 01/03/2023 1:56 PM CDT [facility] ABS. MONOCYTES 0.56 0.00 - 1.50 x10'3/uL 01/03/2023 1:56 PM CDT [facility] ABS. EOSINOPHILS 0.45(H) 0.00 - 0.40 x10'3/uL 01/03/2023 1:56 PM CDT [facility] ABS. BASOPHILS 0.06 0.00 - 0.20 x10'3/uL 01/03/2023 1:56 PM CDT [facility] ABS. IMMATURE GRANULOCYTES 0.03 0.00 - 0.03 x10'3/uL 01/03/2023 1:56 PM CDT [facility] ABS. NUCLEATED RBC'S 0.00 0.00 x10'3/uL 01/03/2023 1:56 PM CDT [facility] PLT MORPH. DECREASED 01/03/2023 1:56 PM CDT [facility] RBC MORPHOLOGY NORMAL 01/03/2023 1:56 PM CDT [facility] 01/03/2023 12:5 5 PM CDT us Carey TUBBSNP LABORATORY Final Res ult [facility] [address] [place] [address], * (ABNORMAL) CBC W/DIFF AUTOMATED (12/27/2022 12:32 PM CDT) WBC 11.19(H) 4.00 - 10.80 x10'3/uL 12/27/2022 1:21 PM CDT [facility] RBC 4.82 4.10 - 5.40 x10'6/uL 12/27/2022 1:21 PM CDT [facility] HGB 13.9 12.0 - 16.0 G/DL 12/27/2022 1:21 PM CDT [facility] HCT 43.6 36.0 - 47.0 % 12/27/2022 1:21 PM CDT [facility] MCV 90.5 78.0 - 100.0 FL 12/27/2022 1:21 PM CDT [facility] MCH 28.8 27.0 - 31.0 PG 12/27/2022 1:21 PM CDT [facility] MCHC 31.9(L) 33.0 - 36.0 G/DL 12/27/2022 1:21 PM CDT [facility] RDW 12.7 11.5 - 14.5 % 12/27/2022 1:21 PM CDT [facility] PLT 31(L) 150 - 350 x10'3/uL 12/27/2022 1:21 PM CDT [facility] Comment: CALLED TO [facility] AT 1320 READ BACK AND VERIFIED MPV RESULTS NOT AVAILABLE 7.4 - 10.4 FL 12/27/2022 1:21 PM CDT [facility] CBC COMMENT NORMAL REFERENCE RANGE NOT ESTABLISHED FOR THE PROPORTIONAL LEUKOCYTE DIFFERENTIAL. 12/27/2022 1:21 PM CDT [facility] NEUTROPHILS % 72.8 % 12/27/2022 1:29 PM CDT [facility] LYMPHOCYTES % 16.5 % 12/27/2022 1:29 PM CDT [facility] MONOCYTES % 4.8 % 12/27/2022 1:29 PM CDT [facility] EOSINOPHILS % 5.0 % 12/27/2022 1:29 PM CDT [facility] BASOPHILS % 0.7 % 12/27/2022 1:29 PM CDT [facility] IMMATURE GRANS % 0.2 % 12/28/19 1:29 PM CDT [facility] NRBC 0.0 % 12/27/2022 1:29 PM CDT [facility] ABS. NEUTROPHILS 8.14 1.60 - 8.30 x10'3/uL 12/27/2022 1:29 PM CDT [facility] ABS. LYMPHOCYTES 1.85 0.80 - 4.70 x10'3/uL 12/27/2022 1:29 PM CDT [facility] ABS. MONOCYTES 0.54 0.00 - 1.50 x10'3/uL 12/27/2022 1:29 PM CDT [facility] ABS. EOSINOPHILS 0.56(H) 0.00 - 0.40 x10'3/uL 12/27/2022 1:29 PM CDT [facility] ABS. BASOPHILS 0.08 0.00 - 0.20 x10'3/uL 12/27/2022 1:29 PM CDT [facility] ABS. IMMATURE GRANULOCYTES 0.02 0.00 - 0.03 x10'3/uL 12/27/2022 1:29 PM CDT [facility] ABS. NUCLEATED RBC'S 0.00 0.00 x10'3/uL 12/27/2022 1:29 PM CDT [facility] PLT MORPH. DECREASED 12/27/2022 1:29 PM CDT [facility] RBC MORPHOLOGY NORMAL 12/27/2022 1:29 PM CDT [facility] 12/27/2022 12:3 2 PM CDT us Carey CASTELLANOS LABORATORY Final Res ult [facility] Fixed [place] [address], * (ABNORMAL) CBC W/DIFF AUTOMATED (12/23/2022 11:26 AM CDT) WBC 6.65 4.00 - 10.80 x10'3/uL 12/23/2022 12:43 PM CDT [facility] RBC 4.60 4.10 - 5.40 x10'6/uL 12/23/2022 12:43 PM CDT [facility] HGB 13.0 12.0 - 16.0 G/DL 12/23/2022 12:43 PM CDT [facility] HCT 41.5 36.0 - 47.0 % 12/23/2022 12:43 PM CDT [facility] MCV 90.2 78.0 - 100.0 FL 12/23/2022 12:43 PM CDT [facility] MCH 28.3 27.0 - 31.0 PG 12/23/2022 12:43 PM CDT [facility] MCHC 31.3(L) 33.0 - 36.0 G/DL 12/23/2022 12:43 PM CDT [facility] RDW 12.8 11.5 - 14.5 % 12/23/2022 12:43 PM CDT [facility] PLT 30(L) 150 - 350 x10'3/uL 12/23/2022 12:43 PM CDT [facility] MPV RESULTS NOT AVAILABLE 7.4 - 10.4 FL 12/23/2022 12:43 PM CDT [facility] CBC COMMENT NORMAL REFERENCE RANGE NOT ESTABLISHED FOR THE PROPORTIONAL LEUKOCYTE DIFFERENTIAL. 12/23/2022 12:43 PM CDT [facility] NEUTROPHILS % 55.9 % 12/23/2022 12:43 PM CDT [facility] LYMPHOCYTES % 27.5 % 12/23/2022 12:43 PM CDT [facility] MONOCYTES % 7.2 % 12/23/2022 12:43 PM CDT [facility] EOSINOPHILS % 8.3 % 12/23/2022 12:43 PM CDT [facility] BASOPHILS % 0.9 % 12/23/2022 12:43 PM CDT [facility] IMMATURE GRANS % 0.2 % 12/24/19 12:43 PM CDT [facility] NRBC 0.0 % 12/23/2022 12:43 PM CDT [facility] ABS. NEUTROPHILS 3.72 1.60 - 8.30 x10'3/uL 12/23/2022 12:43 PM CDT [facility] ABS. LYMPHOCYTES 1.83 0.80 - 4.70 x10'3/uL 12/23/2022 12:43 PM CDT [facility] ABS. MONOCYTES 0.48 0.00 - 1.50 x10'3/uL 12/23/2022 12:43 PM CDT [facility] ABS. EOSINOPHILS 0.55(H) 0.00 - 0.40 x10'3/uL 12/23/2022 12:43 PM CDT [facility] ABS. BASOPHILS 0.06 0.00 - 0.20 x10'3/uL 12/23/2022 12:43 PM CDT [facility] ABS. IMMATURE GRANULOCYTES 0.01 0.00 - 0.03 x10'3/uL 12/23/2022 12:43 PM CDT [facility] ABS. NUCLEATED RBC'S 0.00 0.00 x10'3/uL 12/23/2022 12:43 PM CDT [facility] PLT MORPH. DECREASED 12/23/2022 12:43 PM CDT [facility] RBC MORPHOLOGY NORMAL 12/23/2022 12:43 PM CDT [facility] 12/23/2022 11:2 6 AM CDT Carey CASTELLANOS LABORATORY Final Res ult [facility] [address] Fixed [place] [address], * (ABNORMAL) CBC W/DIFF AUTOMATED (12/13/2022 11:43 AM CDT) WBC 8.96 4.00 - 10.80 x10'3/uL 12/13/2022 11:54 AM CDT [facility] RBC 4.94 4.10 - 5.40 x10'6/uL 12/13/2022 11:54 AM CDT [facility] HGB 14.3 12.0 - 16.0 G/DL 12/13/2022 11:54 AM CDT [facility] HCT 44.3 36.0 - 47.0 % 12/13/2022 11:54 AM CDT [facility] MCV 89.7 78.0 - 100.0 FL 12/13/2022 11:54 AM CDT [facility] MCH 28.9 27.0 - 31.0 PG 12/13/2022 11:54 AM CDT [facility] MCHC 32.3(L) 33.0 - 36.0 G/DL 12/13/2022 11:54 AM CDT [facility] RDW 12.9 11.5 - 14.5 % 12/13/2022 11:54 AM CDT [facility] PLT 33(L) 150 - 350 x10'3/uL 12/13/2022 11:54 AM CDT [facility] MPV RESULTS NOT AVAILABLE 7.4 - 10.4 FL 12/13/2022 11:54 AM CDT [facility] CBC COMMENT NORMAL REFERENCE RANGE NOT ESTABLISHED FOR THE PROPORTIONAL LEUKOCYTE DIFFERENTIAL. 12/13/2022 11:54 AM CDT [facility] NEUTROPHILS % 67.9 % 12/13/2022 12:07 PM CDT [facility] LYMPHOCYTES % 22.0 % 12/13/2022 12:07 PM CDT [facility] MONOCYTES % 4.7 % 12/13/2022 12:07 PM CDT [facility] EOSINOPHILS % 4.4 % 12/13/2022 12:07 PM CDT [facility] BASOPHILS % 0.8 % 12/13/2022 12:07 PM CDT [facility] IMMATURE GRANS % 0.2 % 12/14/19 12:07 PM CDT [facility] NRBC 0.0 % 12/13/2022 12:07 PM CDT [facility] ABS. NEUTROPHILS 6.09 1.60 - 8.30 x10'3/uL 12/13/2022 12:07 PM CDT [facility] ABS. LYMPHOCYTES 1.97 0.80 - 4.70 x10'3/uL 12/13/2022 12:07 PM CDT [facility] ABS. MONOCYTES 0.42 0.00 - 1.50 x10'3/uL 12/13/2022 12:07 PM CDT [facility] ABS. EOSINOPHILS 0.39 0.00 - 0.40 x10'3/uL 12/13/2022 12:07 PM CDT [facility] ABS. BASOPHILS 0.07 0.00 - 0.20 x10'3/uL 12/13/2022 12:07 PM CDT [facility] ABS. IMMATURE GRANULOCYTES 0.02 0.00 - 0.03 x10'3/uL 12/13/2022 12:07 PM CDT [facility] ABS. NUCLEATED RBC'S 0.00 0.00 x10'3/uL 12/13/2022 12:07 PM CDT [facility] PLT MORPH. DECREASED 12/13/2022 12:07 PM CDT [facility] Comment:LARGE PLATELETS RBC MORPHOLOGY NORMAL 12/13/2022 12:07 PM CDT [facility] 12/13/2022 11:4 3 AM CDT Carey CASTELLANOS [facility]ORAT[facility] Final Res ult [facility] [address] [place] [address], documented in this encounter Visit Diagnoses Diagnosis Thrombocytopenia (CMS/HCC)- Primary Thrombocytopenia, unspecified documented in this encounter Additional Health Concerns Infection Onset Date Last Indicated Resolved Time MRSA 06/05/2021 06/05/2021 documented as of this encounter Care Teams Music Education Director Relationship Specialty Start Date End Date Alejandro Blevins MD PCP - General FAMILY PRACTICE 12/10/19 documented as of this encounter
--- OUTSIDE RECORDS SUMMARY | 2024-07-11 05:41 | XMS_ITS | Encounter Summary ---
Author Organization [facility] Address [address] [place] [address]. [place] [address] [place] [address] Care Team Providers Care Principal Programmer Name Role Phone Alejandro Blevins MD Primary Care Provider [phone] Reason for Visit * Reason Onset Date Comments Lab Results 03/18/2022 Encounter Details Date Type Department Care Team ([facility] st Contact Info) Description 03/18/[address] [place] [address] Roberta Alex MD [address] [place] [address] Lab Results Social History Tobacco Use Types Packs/Day Years Used Date Smoking Tobacco: Every Day Cigarettes Smokeless Tobacco: Never Alcohol Use Standard Drinks/Week Comments Not Currently 0 (1 standard drink = 0.6 oz pur e alcohol) Comments No Sex and Gender Information Value Date Recorded Sex Assigned at Not on file Legal Sex Female 11:30 PM GOVERNMENT SERVICE EXECUTIVE Gender Identity Female 11/10/2021 3:09 PM CDT Sexual Orientation Straight 11/10/2021 3: 09 PM CDT documented as of this encounter Functional Status * RETIRED Are you deaf or do you have serious difficulty hearing Answer Date of Assessment Author Status No 07/30/2020 10:48 PM GOVERNMENT SERVICE EXECUTIVE Acti ve * RETIRED Are you blind or do you have serious difficulty seeing, even when wearing glasses? Answer Date of Assessment Author Status No 07/30/2020 10:46 PM GOVERNMENT SERVICE EXECUTIVE Acti ve * Do you have serious [...] Progress Notes * Helena Chavira MA - 03/18/2022 2:45 PM CDT Patient informed Dr. Alex looked over her labs we received from [facility] and they looked good. Patient did state she had COVID last week and is still feeling tired. Patient also believes sheis dehydrate. She was advised to be seen at ED or by her PCP. documented in this encounter Plan of Treatment Upcoming Encounters Date Type Department Care Team (Late st Contact Info) Description 09/25/2024 11:30 AM GOVERNMENT SERVICE EXECUTIVE Appointment [facility] [address] [place] [address] Roberta Alex MD [address] [place] [address] 09/25/2024 11:40 AM GOVERNMENT SERVICE EXECUTIVE Office Visit [facility] [place] [address] Roberta Alex MD [address] [place] [address] documented as of this encounter Visit Diagnoses Not on filedocumented in this encounter Additional Health Concerns Infection Onset Date Last Indicated Resolved Time MRSA 06/05/2021 06/05/2021 documented as of this encounter Care Teams Principal Programmer Relationship Specialty Start Date End Date Alejandro Blevins MD PCP - General FAMILY PRACTICE 12/10/19 documented as of this encounter
--- OUTSIDE RECORDS SUMMARY | 2024-07-11 05:41 | XMS_ITS | Encounter Summary ---
Author Organization [facility] Address [address] [place] [address]. [place] [address] [place] [address] Care Team Providers Care Private Wealth Advisor Name Role Phone Alejandro Blevins MD Primary Care Provider [phone] Reason for Visit * Reason Onset Date Comments Lab Order 01/26/2022 Encounter Details Date Type Department Care Team (Late st Contact Info) Description 01/26/[address] [place] [address] Roberta Alex MD [address] [place] [address] Lab Order Social History Tobacco Use Types Packs/Day Years Used Date Smoking Tobacco: Every Day Cigarettes Smokeless Tobacco: Never Alcohol Use Standard Drinks/Week Comments Not Currently 0 (1 standard drink = 0.6 oz pur e alcohol) Comments No Sex and Gender Information Value Date Recorded Sex Assigned at Not on file Legal Sex Female 11:30 PM TREE GIRDLER Gender Identity Female 11/10/2021 3:09 PM CDT Sexual Orientation Straight 11/10/2021 3: 09 PM CDT documented as of this encounter Functional Status * RETIRED Are you deaf or do you have serious difficulty hearing Answer Date of Assessment Author Status No 07/30/2020 10:48 PM TREE GIRDLER Acti ve * RETIRED Are you blind or do you have serious difficulty seeing, even when wearing glasses? Answer Date of Assessment Author Status No 07/30/2020 10:46 PM TREE GIRDLER Acti ve * Do you have serious [...] st Contact Info) Description 09/25/2024 11:30 AM TREE GIRDLER Appointment [facility] [address] [place] [id number] Roberta Alex MD [address] [place] [address] 09/25/2024 11:40 AM TREE GIRDLER Office Visit [facility] [address] [place] [address] Roberta Alex MD [address] [place] [address] documented as of this encounter Visit Diagnoses Not on filedocumented in this encounter Additional Health Concerns Infection Onset Date Last Indicated Resolved Time MRSA 06/05/2021 06/05/2021 documented as of this encounter Care Teams Private Wealth Advisor Relationship Specialty Start Date End Date Alejandro Blevins MD PCP - General FAMILY PRACTICE 12/10/19 documented as of this encounter
--- OUTSIDE RECORDS SUMMARY | 2024-07-11 05:41 | XMS_ITS | Encounter Summary ---
Author Organization [facility] Address [facility] [place] [address] [place] [address] Care Team Providers Care Vat Overhauler Name Role Phone Alejandro Blevins MD Primary Care Provider [phone] Encounter Details Date Type Department Care Team (Late st Contact Info) Description 12/07/2022 Orders Only [address] [place] [address] Roberta Alex MD [address] [place] [address] Social History Tobacco Use Types Packs/Day Years Used Date Smoking Tobacco: Every Day Cigarettes Smokeless Tobacco: Never Alcohol Use Standard Drinks/Week Comments Not Currently 0 (1 standard drink = 0.6 oz pur e alcohol) Comments No Sex and Gender Information Value Date Recorded Sex Assigned at Not on file Legal Sex Female 11:30 PM DRYWALL STRIPPER HELPER Gender Identity Female 11/10/2021 3:09 PM [...] Assessment Author Status No 07/30/2020 10:48 PM DRYWALL STRIPPER HELPER Acti ve * RETIRED Are you blind or do you have serious difficulty seeing, even when wearing glasses? Answer Date of Assessment Author Status No 07/30/2020 10:46 PM DRYWALL STRIPPER HELPER Acti ve * Do you have [...] Date Type Department Care Team (Late st [facility]) Description 09/25/2024 11:30 AM DRYWALL STRIPPER HELPER Appointment [facility] [address] [place] [address] Roberta Alex MD [address] [place] [address] 09/25/2024 11:40 AM DRYWALL STRIPPER HELPER Office Visit [facility] [address] [place] [address] Roberta Alex MD [address] [place] [address] documented as of this encounter Results * VITAMIN B-12 (12/07/2022 10:15 AM CDT) VITAMIN B12 S/P/B 461 193 - 986 PG/ML 12/08/2022 3:47 PM CDT [facility] 12/07/2022 10:1 5 AM CDT Roberta Alex MD LABORATORY Final Result [facility] [address] [place] [address], [id number] * COMPREHENSIVE METABOLIC PANEL (12/07/2022 10:15 AM CDT) SODIUM S/P/B 138 136 - 145 MMOL/L 12/07/2022 3:38 PM CDT [facility] POTASSIUM S/P/B 4.5 3.5 - 5.1 MMOL/L 12/07/2022 3:38 PM CDT [facility] Comment:MILD HEMOLYSIS, RESU LT MAY BE AFFECTED. CHLORIDE S/P/B 103 98 - 107 MMOL/L 12/07/2022 3:38 PM CDT [facility] CO2 24.1 21.0 - 32.0 MMOL/L 12/07/2022 3:38 PM CDT [facility] GLUCOSE 94 70 - 99 MG/DL 12/07/2022 3:38 PM CDT [facility] Comment: FASTING GLUCOSE 100 TO 125 MG/DL IS CONSISTENT WITH IMPAIRED FASTING GLUCOSE. FASTING GLUCOSE >125 MG/DL IS CONSISTENT WITH DIABETES. RANDOM GLUCOSE >200 MG/DL WITH HYPERGLYCEMIC SYMPTOMS IS CONSISTENT WITH DIABETES. PER ADA GUIDELINES BUN 15 6 - 24 MG/DL 12/07/2022 3:38 PM CDT [facility] CREATININE S/P/B 0.77 0.55 - 1.02 MG/DL 12/07/2022 3:38 PM CDT [facility] CALCIUM S/P/B 8.8 8.4 - 10.5 MG/DL 12/07/2022 3:38 PM CDT [facility] BILIRUBIN TOTAL S/P/B 0.3 0.2 - 1.0 MG/DL 12/07/2022 3:38 PM CDT [facility] Comment: THIS ASSAY IS NOT RECOMMENDED FOR PATIENTS UNDERGOING TREATMENT WITH ELTROMBOPAG DUE TO THE POTENTIAL FOR FALSELY ELEVATED RESULTS. ALKALINE PHOSPHATASE S/P/B 70 37 - 98 U/L 12/07/2022 3:38 PM CDT [facility] AST 22 15 - 37 U/L 12/07/2022 3:38 PM CDT [facility] Comment:MILD HEMOLYSIS, RESU LT MAY BE AFFECTED. ALT 16 14 - 59 U/L 12/07/2022 3:38 PM CDT [facility] TOTAL PROTEIN S/P/B 7.4 6.4 - 8.2 G/DL 12/07/2022 3:38 PM CDT [facility] ALBUMIN S/P/B 3.8 3.4 - 5.0 G/DL 12/07/2022 3:38 PM CDT [facility] ANION GAP 10.9 5.0 - 15.0 MMOL/L 12/07/2022 3:38 PM CDT [facility] OSMOLALITY (CALC) 287 MOSM/KG 023 3:38 PM CDT [facility] Comment:REFERENCE RANGE NOT ESTABLISHED GFR ESTIMATE >90 >89 ML/MIN/1. 73 M2 12/07/2022 3:38 PM CDT [facility] GFR NOTES GFR REFERENCE S: 12/07/2022 3:38 PM CDT [facility] Comment: THE ESTIMATED GFR [...] Alex MD LABORATORY Final Result [facility] [address] [place] [address], documented in this encounter Visit Diagnoses Diagnosis Thrombocytopenia (CMS/HCC)- Primary Thrombocytopenia, unspecified documented in this encounter Additional Health Concerns Infection Onset Date Last Indicated Resolved Time MRSA 06/05/2021 06/05/2021 documented as of this encounter Care Teams Vat Over[employer]uler Relationship Specialty Start Date End Date Alejandro Blevins MD PCP - General FAMILY PRACTICE 12/10/19 documented as of this encounter
--- OUTSIDE RECORDS SUMMARY | 2024-07-11 05:41 | XMS_ITS | Encounter Summary ---
Author Organization [facility] Address [address] [place] [address]. [place], [place] [address] [place] [address] Care Team Providers Care Sales Commissions Analyst Name Role Phone Alejandro Blevins MD Primary Care Provider [phone] Encounter Details Date Type Department Care Team (Latest Contact Info) Description 12/13/2022 Travel Social History Tobacco Use Types Packs/Day Years Used Date Smoking Tobacco: Every Day Cigarettes Smokeless Tobacco: Never Alcohol Use Standard Drinks/Week Comments Not Currently 0 (1 standard drink = 0.6 oz pur e alcohol) Comments No Sex and Gender Information Value Date Recorded Sex Assigned at Not on file Legal Sex Female 11:30 PM ASSET ANALYST Gender Identity Female 11/10/2021 3:09 PM [...] Assessment Author Status No 07/30/2020 10:48 PM ASSET ANALYST Acti ve * RETIRED Are you blind or do you have serious difficulty seeing, even when wearing glasses? Answer Date of Assessment Author Status No 07/30/2020 10:46 PM ASSET ANALYST Acti ve * Do you have serious difficulty walking or climbing stairs? Answer Date of Assessment Author Status No 07/30/2020 10:46 PM ASSET ANALYST Nella Le RN Active * Do you have difficulty dressing or bathing? Answer Date of Assessment Author Status No 07/30/2020 10:46 PM ASSET ANALYST Nella Le RN Active * Because of a physical, mental, or emotional condition, do you have difficulty doing errands alone such as visiting a doctor's office or shopping? Answer Date of Assessment Author Status No 07/30/2020 10:46 PM ASSET ANALYST Nella Le RN Active documented as of this encounter Mental Status * Because of a physical, mental, or emotional condition, do you have serious difficulty concentrating, remembering, or making decisions? Answer Entry Date Author Status No 07/30/2020 10:46 PM ASSET ANALYST Nella Le RN Active documented in this encounter Plan of Treatment Upcoming Encounters Date Type Department Care Team (Late st Contact Info) Description 09/25/2024 11:30 AM ASSET ANALYST Appointment [facility] [address] [facility] [place] [address] Roberta Alex MD [address] [place] [address] 09/25/2024 11:40 AM ASSET ANALYST Office Visit [facility] [address] [facility] [place] [address] Roberta Alex MD [address] [place] [address] documented as of this encounter Visit Diagnoses Not on filedocumented in this encounter Additional Health Concerns Infection Onset Date Last Indicated Resolved Time MRSA 06/05/2021 06/05/2021 documented as of this encounter Care Teams Sales Commissions Analyst Relationship Specialty Start Date End Date Alejandro Blevins MD PCP - General FAMILY PRACTICE 12/10/19 documented as of this encounter
--- OUTSIDE RECORDS SUMMARY | 2024-07-11 05:41 | XMS_ITS | Encounter Summary ---
Author Organization [facility] Address [address] [place] [address]. [place] [address] [place] [address] Care Team Providers Care Ranch Cook Name Role Phone Alejandro Blevins MD Primary Care Provider [phone] Encounter Details Date Type Department Care Team (Late st Contact Info) Description 11/29/2022 [facility] [address] [place] [address] Roberta Alex MD [address] [place] [address] Note for work Social History Tobacco Use Types Packs/Day Years Used Date Smoking Tobacco: Every Day Cigarettes Smokeless Tobacco: Never Alcohol Use Standard Drinks/Week Comments Not Currently 0 (1 standard drink = 0.6 oz pur e alcohol) Comments No Sex and Gender Information Value Date Recorded Sex Assigned at Not on file Legal Sex Female 11:30 PM CELERY PACKER Gender Identity Female 11/10/2021 3:09 PM [...] Assessment Author Status No 07/30/2020 10:48 PM CELERY PACKER Acti ve * RETIRED Are you blind or do you have serious difficulty seeing, even when wearing glasses? Answer Date of Assessment Author Status No 07/30/2020 10:46 PM CELERY PACKER Acti ve * Do you have [...] documented in this encounter Progress Notes * Robetra Alex MD - 12/03/2022 2:39 PM CDT We can provide at the time of her clinic appt- work excuse for a few days- considering iron deficiency and worsening ITP. Repeat labs at my [facility] documented in this encounter Plan of Treatment Upcoming Encounters Date Type Department Care Team (Late st Contact Info) Description 09/25/2024 11:30 AM CELERY PACKER Appointment [facility] [place] [address] Roberta Alex MD [address] [place] [address] 09/25/2024 11:40 AM CELERY PACKER Office Visit [facility] [place] [address] [address] Roberta Alex MD [address] [place] [address] documented as of this encounter Visit Diagnoses Not on filedocumented in this encounter Additional Health Concerns Infection Onset Date Last Indicated Resolved Time 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
--- OUTSIDE RECORDS SUMMARY | 2024-07-11 05:41 | XMS_ITS | Encounter Summary ---
Author Organization [facility] Address [facility] [place] [address] [place] [address] Care Team Providers Care Drama Critic Name Role Phone Alejandro Blevins MD Primary Care Provider [phone] Encounter Details Date Type Department Care Team (Late st Contact Info) Description 11/29/2022 Orders Only [address] [place] [address] Roberta Alex MD [address] [place] [address] Social History Tobacco Use Types Packs/Day Years Used Date Smoking Tobacco: Every Day Cigarettes Smokeless Tobacco: Never Alcohol Use Standard Drinks/Week Comments Not Currently 0 (1 standard drink = 0.6 oz pur e alcohol) Comments No Sex and Gender Information Value Date Recorded Sex Assigned at Not on file Legal Sex Female 11:30 PM CLINICAL NURSING INSTRUCTOR Gender Identity Female 11/10/2021 3:09 PM CDT Sexual Orientation Straight 11/10/2021 3: 09 PM CDT documented as of this encounter Functional Status * RETIRED Are you deaf or do you have serious difficulty hearing Answer Date of Assessment Author Status No 07/30/2020 10:48 PM CLINICAL NURSING INSTRUCTOR Acti ve * RETIRED Are you blind or do you have serious difficulty seeing, even when wearing glasses? Answer Date of Assessment Author Status No 07/30/2020 10:46 PM CLINICAL NURSING INSTRUCTOR Acti ve * Do you have serious difficulty walking or climbing stairs? Answer Date of Assessment Author Status No 07/30/2020 10:46 PM CLINICAL NURSING INSTRUCTOR Bringuet, Nella C, RN Active * Do you have difficulty dressing or bathing? Answer Date of Assessment Author Status No 07/30/2020 10:46 PM CLINICAL NURSING INSTRUCTOR Nella Le RN Active * Because of [...] st Contact Info) Description 09/25/2024 11:30 AM CLINICAL NURSING INSTRUCTOR Appointment [facility] [address] [place] [address] Roberta Alex MD [address] [place] [address] 09/25/2024 11:40 AM CLINICAL NURSING INSTRUCTOR Office Visit [facility] [address] [address] [place] [address] Roberta Alex MD [address] [place] [address] documented as of this encounter Results * FERRITIN (11/29/2022 4:37 PM CDT) FERRITIN 13.9 8 - 252 NG/ML 11/29/2022 5:21 PM CDT [facility] 11/29/2022 4:37 PM CDT Roberta Alex MD LABORATORY Final Result [facility] [address] [place] [address], * (ABNORMAL) IRON SAT PANEL (IRON,IBC,%SAT) (11/29/2022 4:37 PM CDT) IRON 47(L) 50 - 170 MCG/DL 11/29/2022 5:17 PM CDT [facility] IRON BINDING CAPACITY 324 250 - 450 MCG/DL 11/29/2022 5:17 PM CDT [facility] IRON SATURATION 15 % 5:17 PM CDT [facility] Comment:REFERENCE RANGE NOT ESTABLISHED 11/29/2022 4:37 PM CDT us Roberta Alex MD LABORATORY Final Result [facility] [address] [place] [address], * (ABNORMAL) CBC W/DIFF AUTOMATED (11/29/2022 4:37 PM CDT) WBC 7.17 4.00 - 10.80 x10'3/uL 11/29/2022 4:52 PM CDT [facility] RBC 5.00 4.10 - 5.40 x10'6/uL 11/29/2022 4:52 PM CDT [facility] HGB 14.0 12.0 - 16.0 G/DL 11/29/2022 4:52 PM CDT [facility] HCT 44.9 36.0 - 47.0 % 11/29/2022 4:52 PM CDT [facility] MCV 89.8 78.0 - 100.0 FL 11/29/2022 4:52 PM CDT [facility] MCH 28.0 27.0 - 31.0 PG 11/29/2022 4:52 PM CDT [facility] MCHC 31.2(L) 33.0 - 36.0 G/DL 11/29/2022 4:52 PM CDT [facility] RDW 13.4 11.5 - 14.5 % 11/29/2022 4:52 PM CDT [facility] PLT 42(L) 150 - 350 x10'3/uL 11/29/2022 4:52 PM CDT [facility] MPV RESULTS NOT AVAILABLE 7.4 - 10.4 FL 11/29/2022 4:52 PM CDT [facility] CBC COMMENT NORMAL REFERENCE RANGE NOT ESTABLISHED FOR THE PROPORTIONAL LEUKOCYTE DIFFERENTIAL. 11/29/2022 4:52 PM CDT [facility] NEUTROPHILS % 67.0 % 11/29/2022 5:14 PM CDT [facility] LYMPHOCYTES % 24.8 % 11/29/2022 5:14 PM CDT [facility] MONOCYTES % 4.6 % 11/29/2022 5:14 PM CDT [facility] EOSINOPHILS % 2.9 % 11/29/2022 5:14 PM CDT [facility] BASOPHILS % 0.6 % 11/29/2022 5:14 PM CDT [facility] IMMATURE GRANS % 0.1 % 11/30/19 5:14 PM CDT [facility] NRBC 0.0 % 11/29/2022 5:14 PM CDT [facility] ABS. NEUTROPHILS 4.80 1.60 - 8.30 x10'3/uL 11/29/2022 5:14 PM CDT [facility] ABS. LYMPHOCYTES 1.78 0.80 - 4.70 x10'3/uL 11/29/2022 5:14 PM CDT [facility] ABS. MONOCYTES 0.33 0.00 - 1.50 x10'3/uL 11/29/2022 5:14 PM CDT [facility] ABS. EOSINOPHILS 0.21 0.00 - 0.40 x10'3/uL 11/29/2022 5:14 PM CDT [facility] ABS. BASOPHILS 0.04 0.00 - 0.20 x10'3/uL 11/29/2022 5:14 PM CDT [facility] ABS. IMMATURE GRANULOCYTES 0.01 0.00 - 0.03 x10'3/uL 11/29/2022 5:14 PM CDT [facility] ABS. NUCLEATED RBC'S 0.00 0.00 x10'3/uL 11/29/2022 5:14 PM CDT [facility] PLT MORPH. DECREASED 11/29/2022 5:14 PM CDT [facility] RBC MORPHOLOGY NORMAL 11/29/2022 5:14 PM CDT [facility] 11/29/2022 4:37 PM CDT Roberta Alex MD LABORATORY Final Result [facility] [address] [place] [address], documented in this encounter Visit Diagnoses Diagnosis Thrombocytopenia (CMS/HCC)- Primary Thrombocytopenia, unspecified documented in this encounter Additional Health Concerns Infection Onset Date Last Indicated Resolved Time MRSA 06/05/2021 06/05/2021 documented as of this encounter Care Teams Drama Critic Relationship Specialty Start Date End Date Alejandro Blevins MD PCP - General FAMILY PRACTICE 12/10/19 documented as of this encounter
--- OUTSIDE RECORDS SUMMARY | 2024-07-11 05:41 | XMS_ITS | Encounter Summary ---
Author Organization [facility] Address [address] [place] [address]. [place] [address] [place] [address] Care Team Providers Care Reservoir Caretaker Name Role Phone Alejandro Blevins MD Primary Care Provider [phone] Reason for Visit * Reason Comments Infusion Therapy * Treatment/Therapy Plan Authorization (Routine) - Closed Specialty Diagnoses / Procedures Referred By Contac t Referred To Contact Diagnoses Iron deficiency anemia due to chronic blood loss Procedures Roberta Evans MD [address] [place] [address] Phone: tel: fax: [facility] [place] [address] Phone: tel: Referral ID Status Reason Start Date Expiration Date Visits Re quested Visits Authorized [id number] Closed 12/07/2022 12/08/2023 1 1 Encounter Details Date Type Department Care Team (Latest Contact Info) Description 12/23/2022 11:00 AM CDT - 12/23/2022 11:59 PM T Hospital Encounter [facility] [place] [address] Roberta Alex MD [address] [place], [place] [address] Infusion Therapy Discharge Disposition: Home or Self [...] on file Legal Sex Female 11:30 PM PIPELINE TECHNICIAN Gender Identity Female 11/10/2021 3:09 PM CDT Sexual Orientation Straight 11/10/2021 3: 09 PM CDT COVID-19 Exposure Response Date Recorded In the last 10 days, have yo u been in contact with someone who was confirmed or suspected to have Coronavirus/COVID-19? No / Unsure 12/23/2022 11:06 AM CDT documented as of this encounter Last Filed Vital Signs Vital Sign Reading Time Taken Comments Blood Pressure 112/65 12/23/2022 11:36 AM CDT Pulse 75 12/23/2022 11:36 AM CDT Temperature 36.2 ??C (97.2 ??F) 12/23/2022 11:36 AM C DT Respiratory Rate 18 12/23/2022 11:36 AM CDT Oxygen Saturation 99% 12/23/2022 11:36 AM CDT Inhaled Oxygen Concentration - - Weight - - Height - - Body Mass Index - - documented in this encounter Functional Status * RETIRED Are you deaf or do you have serious difficulty hearing Answer Date of Assessment Author Status No 07/30/2020 10:48 PM PIPELINE TECHNICIAN Acti ve * RETIRED Are you blind or do you have serious difficulty seeing, even when wearing glasses? Answer Date of Assessment Author Status No 07/30/2020 10:46 PM PIPELINE TECHNICIAN Acti ve * Do you have [...] Date Author Status No 07/30/2020 10:46 PM PIPELINE TECHNICIAN Nella Le RN Active documented in [...] encounter Progress Notes * Cecilia Healy - 12/23/2022 11:00 AM CDTEncounter addended by: Cecilia Healy on: 12/24/2022 2:29 PM Actions taken: Charge Capture section accepted * Luis Gonzalez RN - 12/23/2022 11:00 AM CDT PATIENT ASSESSMENT: Admitted via: Ambulatory [...] st Contact Info) Description 09/25/2024 11:30 AM PIPELINE TECHNICIAN Appointment [facility] [address] [place] [address] Roberta Alex MD [address] [place] [address] 09/25/2024 11:40 AM PIPELINE TECHNICIAN Office Visit [facility] [address] [address] Roberta Alex MD [address] [place] [address] documented as of this encounter Visit Diagnoses [...] 100 mL/hr, Once, 1 dose, On Brittni 12/23/22 at 1130Indications:Iron deficiency anemia due to chronic blood loss [place] 12/23/2022 11:46 AM CDT 200 mg 100 mL/hr documented in this encounter Additional Health Concerns Infection Onset Date Last Indicated Resolved Time MRSA 06/05/2021 06/05/2021 documented as of this encounter Care Teams Reservoir Caretaker Relationship Specialty Start Date End Date Alejandro Blevins MD PCP - General FAMILY PRACTICE 12/10/19 documented as of this encounter
--- OUTSIDE RECORDS SUMMARY | 2024-07-11 05:41 | XMS_ITS | Encounter Summary ---
Author Organization [facility] Address [address] [place] [address]. [place] [address] [place] [address] Care Team Providers Care Molder Wax Ball Name Role Phone Alejandro Blevins MD Primary Care Provider [phone] Encounter Details Date Type Department Care Team (Late st Contact Info) Description 09/28/2022 Orders Only [facility] [address] [address] Zeeshan Anderson, [facility] [address] [place] [address] [place] [id number] Social History Tobacco Use Types Packs/Day Years Used Date Smoking Tobacco: Every Day Cigarettes Smokeless Tobacco: Never Alcohol Use Standard Drinks/Week Comments Not Currently 0 (1 standard drink = 0.6 oz pur e alcohol) Comments No Sex and Gender Information Value Date Recorded Sex Assigned at Not on file Legal Sex Female 11:30 PM PARADICHLOROBENZENE TENDER Gender Identity Female 11/10/2021 3:09 PM CDT Sexual Orientation Straight 11/10/2021 3: 09 PM CDT documented as of this encounter Functional Status * RETIRED Are you deaf or do you have serious difficulty hearing Answer Date of Assessment Author Status No 07/30/2020 10:48 PM PARADICHLOROBENZENE TENDER Acti ve * RETIRED Are you blind or do you have serious difficulty seeing, even when wearing glasses? Answer Date of Assessment Author Status No 07/30/2020 10:46 PM PARADICHLOROBENZENE TENDER Acti ve * Do you have serious difficulty walking or climbing stairs? Answer Date of Assessment Author Status No 07/30/2020 10:46 PM PARADICHLOROBENZENE TENDER Nella Le RN Active * Do you have difficulty dressing or bathing? Answer Date of Assessment Author Status No 07/30/2020 10:46 PM PARADICHLOROBENZENE TENDER Nella Le RN Active * Because of a physical, mental, or emotional condition, do you have difficulty doing errands alone such as visiting a doctor's office or shopping? Answer Date of Assessment Author Status No 07/30/2020 10:46 PM PARADICHLOROBENZENE TENDER Nella Le RN Active documented as of this encounter Mental Status * Because of a physical, mental, or emotional condition, do you have serious difficulty concentrating, remembering, or making decisions? Answer Entry Date Author Status No 07/30/2020 10:46 PM PARADICHLOROBENZENE TENDER Nella Le RN Active documented in this encounter Plan of Treatment Upcoming Encounters Date Type Department Care Team (Late st Contact Info) Description 09/25/2024 11:30 AM PARADICHLOROBENZENE TENDER Appointment [facility] [address] [place] [address] Roberta Alex MD [address] [place] [address] 09/25/2024 11:40 AM PARADICHLOROBENZENE TENDER Office Visit [facility] [address] [place] [address] Roberta Alex MD [address] [place] [address] documented as of this encounter Results * XR SHOULDER RT [...] By: Tyrone Silvestre MD, 10/07/2022 1:01 PM us Zeeshan Anderson RADIAL SAW OPERATOR-BC GENERAL IMAGING Final Resu lt * XR [...] MD, 10/07/2022 1:00 PM us Zeeshan Anderson RADIAL SAW OPERATOR-BC GENERAL IMAGING Final Resu lt documented in this encounter Visit Diagnoses Diagnosis Right elbow pain- Primary Pain in joint, upper arm Acute pain of right shoulder Right elbow pain Pain in joint, upper arm Acute pain of right shoulder documented in this encounter Additional Health Concerns Infection Onset Date Last Indicated Resolved Time MRSA 06/05/2021 06/05/2021 documented as of this encounter Care Teams Molder Wax Ball Relationship Specialty Start Date End Date Alejandro Blevins MD PCP - General FAMILY PRACTICE 12/10/19 documented as of this encounter
--- OUTSIDE RECORDS SUMMARY | 2024-07-11 05:41 | XMS_ITS | Encounter Summary ---
Author Organization [facility] Address [address] [place] [address]. [place], [place] [id number] [place] [address] Care Team Providers Care Front Desk Attendant Name Role Phone Alejandro Blevins MD Primary Care Provider [phone] Encounter Details Date Type Department Care Team (Latest Contact Info) Description 12/27/2022 Travel Social History Tobacco Use Types Packs/Day Years Used Date Smoking Tobacco: Every Day Cigarettes Smokeless Tobacco: Never Alcohol Use Standard Drinks/Week Comments Not Currently 0 (1 standard drink = 0.6 oz pur e alcohol) Comments No Sex and Gender Information Value Date Recorded Sex Assigned at Not on file Legal Sex Female 11:30 PM REGISTER OF WILLS Gender Identity Female 11/10/2021 3:09 PM CDT [...] Assessment Author Status No 07/30/2020 10:48 PM REGISTER OF WILLS Acti ve * RETIRED Are you blind or do you have serious difficulty seeing, even when wearing glasses? Answer Date of Assessment Author Status No 07/30/2020 10:46 PM REGISTER OF WILLS Acti ve * Do you have serious difficulty walking or climbing stairs? Answer Date of Assessment Author Status No 07/30/2020 10:46 PM REGISTER OF WILLS Nella Le RN Active * Do you have difficulty dressing or bathing? Answer Date of Assessment Author Status No 07/30/2020 10:46 PM REGISTER OF WILLS Nella Le RN Active * Because of a physical, mental, or emotional condition, do you have difficulty doing errands alone such as visiting a doctor's office or shopping? Answer Date of Assessment Author Status No 07/30/2020 10:46 PM REGISTER OF WILLS Nella Le RN Active documented as of this encounter Mental Status * Because of a physical, mental, or emotional condition, do you have serious difficulty concentrating, remembering, or making decisions? Answer Entry Date Author Status No 07/30/2020 10:46 PM REGISTER OF WILLS Nella Le RN Active documented in this encounter Plan of Treatment Upcoming Encounters Date Type Department Care Team (Late st Contact Info) Description 09/25/2024 11:30 AM REGISTER OF WILLS Appointment [facility] [address] [facility] [place] [address] Roberta Alex MD [address] [place] [address] 09/25/2024 11:40 AM REGISTER OF WILLS Office Visit [facility] [address] [facility] [place] [address] Roberta Alex MD [address] [place] [address] documented as of this encounter Visit Diagnoses Not on filedocumented in this encounter Additional Health Concerns Infection Onset Date Last Indicated Resolved Time MRSA 06/05/2021 06/05/2021 documented as of this encounter Care Teams Front Desk Attendant Relationship Specialty Start Date End Date Alejandro Blevins MD PCP - General FAMILY PRACTICE 12/10/19 documented as of this encounter
--- OUTSIDE RECORDS SUMMARY | 2024-07-11 05:41 | XMS_ITS | Encounter Summary ---
Author Organization [facility] Address [address] [place] [address]. [place] [address] [place] [address] Care Team Providers Care Puddler Helper Name Role Phone Alejandro Blevins MD Primary Care Provider [phone] Reason for Visit * Reason Comments Follow Up Thrombocytopenia/ Me dical Clearance for [facility] Tooth Extraction Encounter Details Date Type Department Care Team (Late st Contact Info) Description 11/17/2021 12:00 PM CDT Office Visit [address] [place] [address] Roberta Alex MD [address] [place], [place] [id number] Follow Up (Thrombocytopenia/ Medical Clearance for [facility] Tooth Extraction) Social History Tobacco Use Types Packs/Day Years Used Date Smoking Tobacco: Every Day Cigarettes Smokeless Tobacco: Never Alcohol Use Standard Drinks/Week Comments Not Currently 0 (1 standard drink = 0.6 oz pur e alcohol) Comments No Sex and Gender Information Value Date Recorded Sex Assigned at Not on file Legal Sex Female 11:30 PM ROPE COILING MACHINE OPERATOR Gender Identity Female 11/10/2021 3:09 [...] Sign Reading Time Taken Comments Blood Pressure 103/57 11/17/2021 12:19 PM CDT Pulse 67 11/17/2021 12:19 PM CDT Temperature 35.7 ??C (96.3 ??F) 11/17/2021 12:19 PM C DT Respiratory Rate 18 11/17/2021 12:19 PM CDT Oxygen Saturation 99% 11/17/2021 12:19 PM CDT Inhaled Oxygen Concentration - - Weight 71.9 kg (158 lb 9.6 oz) 11/17/2021 12:19 PM CDT Height - - Body Mass Index 28.09 09/26/2021 12:32 AM ROPE COILING MACHINE OPERATOR documented in this encounter Functional Status * RETIRED Are you deaf or do you have serious difficulty hearing Answer Date of Assessment Author Status No 07/30/2020 10:48 PM ROPE COILING MACHINE OPERATOR Acti ve * RETIRED Are you blind or do you have serious difficulty seeing, even when wearing glasses? Answer Date of Assessment Author Status No 07/30/2020 10:46 PM ROPE COILING MACHINE OPERATOR Acti ve * Do you have serious difficulty walking or climbing stairs? Answer Date of Assessment Author Status No 07/30/2020 10:46 PM ROPE COILING MACHINE OPERATOR Nella Le RN Active * Do you have difficulty dressing or bathing? Answer Date of Assessment Author Status No 07/30/2020 10:46 PM ROPE COILING MACHINE OPERATOR Nella Le RN Active * Because of a physical, mental, or emotional condition, do you have difficulty doing errands alone such as visiting a doctor's office or shopping? Answer Date of Assessment Author Status No 07/30/2020 10:46 PM ROPE COILING MACHINE OPERATOR Nella Le RN Active documented as of this encounter Mental Status * Because of a physical, mental, or emotional condition, do you have serious difficulty concentrating, remembering, or making decisions? Answer Entry Date Author Status No 07/30/2020 10:46 PM ROPE COILING MACHINE OPERATOR Nella Le RN Active documented in this encounter Progress Notes * Roberta Alex MD - 11/17/2021 12:00 PM CDT HEMATOLOGY/ONCOLOGY NOTE IDENTIFYING DATA: Hillary Smalls is a 31-year-old female REASON FOR VISIT: Follow Up (Thrombocytopenia/ Medical Clearance for [facility] Tooth Extraction) HEMATOLOGY HISTORY: Hillary Smalls is a 30-year-old female with hx of ITP, hepatitis C, polysubstance abuse,established care with me when she was with twins at 20 weeks gestation in 11/2019 and had no care. 1. ITP: Previously followed with [facility] data warehousing manager Dr. Dick Bonilla. - 11/2019- 03/2020: Platelet [...] B12 related anemia- on supplements. INTERVAL HISTORY: Today she returns for her regular followup visit.?? Overall, she reports feeling tired.?? She is busy taking care of her twins and older children and reports unable to come to infusions or keep up with clinic schedules.?? She would like to do minimal treatments if possible.?? Denied any petechial rash, mucosal bleeding, nosebleeds, complaints of blood in stool or urine.?? Menstrual cycles are very scant to minimal.?? She is on hydrocodone for a broken tooth and is now awaiting dental evaluation.?? REVIEW OF SYSTEMS: CONST:?? No fever or chills. ENT:?? No difficulty swallowing. RESP:?? No shortness of breath. CV:?? No chest pain. :?? No urinary symptoms or frequency. MSK:?? No new joint pain or joint swelling. H/L/IMMEDIATE:?? No easy bruising or bleeding. ENDO:?? No cold or heat intolerance. Reviewed past medical history, surgical history, family history, social history.?? No changes except as noted. PAST MEDICAL HISTORY: Chronic hepatitis C, chronic thrombocytopenia, history of IVDU ?? FAMILY HISTORY: No family history of any hemoglobinopathies, malignancies. History of anemia, B12 deficiency in thefamily. Social History Socioeconomic History ??? Marital status: Single Spouse name: Not on file ??? Number of children: Not on file ??? Years of education: Not on file ??? Highest education level: Not on file Occupational History ??? Not on file Tobacco Use ??? Smoking status: Current Every Day Smoker Packs/day: 0.50 Types: Cigarettes ??? Smokeless tobacco: Never Used Vaping Use ??? Vaping Use: Never used Substance and Sexual Activity ??? Alcohol use: Not Currently ??? Drug use: Not Currently ??? Sexual activity: Not on file Other Topics Concern ??? Not on file Social History Narrative ??? Not on file Social Determinants of Health Financial Resource Strain: Not on file Food Insecurity: Not on file Transportation Needs: Not on file Physical Activity: Not on file Stress: Not on file Social Connections: Not on file Intimate Partner Violence: Not on file No past surgical history on file. No current outpatient medications on file. No current facility-administered medications for this visit. Allergies Allergen Reactions ??? Bee Venom Anaphylaxis ??? Iodinated Diagnostic Agents Anaphylaxis ??? Shellfish Allergy Anaphylaxis VITALS: Height: 5' 3 (1.6 m) , Weight: 71.9 kg (158 lb 9.6 oz) , BSA (Calculated - sq m): 1.75 sq meters , BP: 103/57 , Temp: 96.3 ??F (35.7 ??C) , Pulse: 67 , Resp: 18 PHYSICAL EXAMINATION: CONST:?? Overall is in usual health and no acute distress.?? EYES:?? No icterus. ENT:?? Not examined due to COVID-19 precautions, wearing a mask. RESP:?? Chest is clear to auscultation.?? Respiration even and unlabored. CV:?? Heart regular rate and rhythm without murmur. GI:?? Abdomen soft without mass, tenderness, ascites, or hernia. MSK:?? Head is atraumatic and normocephalic.?? No edema. SKIN:?? No bruises, rashes, petechiae on exposed areas.?? Warm and dry. PSYCH:?? Appropriate mood and affect. NEURO:?? No speech difficulty.?? Alert and oriented to person, place, and time. Reviewed pertinent diagnostic tests, lab work, and imaging.?? These were reviewed with the patient. LABORATORY CBC: ABS. NEUTROPHILS Date Value Ref Range Status 06/05/2021 8.41 (H) 1.60 - 8.30 x10'3/uL Final WBC Date Value Ref Range Status 11/17/2021 13.5 (H) 4.0 - 10.8 x10'3/uL Final HGB Date Value Ref Range Status 11/17/2021 13.4 12.0 - 16.0 G/DL Final HCT Date Value Ref Range Status 11/17/2021 42.5 36.0 - 47.0 % Final PLT Date Value Ref Range Status 11/17/2021 63 (L) 150 - 350 x10'3/uL Final ASSESSMENT AND PLAN: 1.?? Chronic ITP - platelets pending today. ??She is not on any medications.?? Her last dose of Nplate was in 05/2021.?? She has not followed up with us since then.?? Clinically asymptomatic. 2.?? History of iron deficiency anemia secondary to menorrhagia - improved. 3.?? Concern for APLS - she has still not met with Rheumatology and does not want to do so as well.?? I previously asked her to start taking aspirin, which she has not done yet.?? Today platelet counts are pending.?? Await results. 3.?? Chronic HCV infection - s/p hepatitis C antiviral treatment.?? Follow[facility] Hepatology team. 4.?? History of polysubstance abuse, IV drug abuse - patient has completely quit recreational drugs. - Today iron studies look good, I have advised her to start taking oral iron, ferrous gluconate 325mg along with vitamin C every other day and see if she tolerates it well.?? If she has poor tolerance, due to ongoing fatigue, she will benefit from IV iron infusions.?? - I will call her with the CBC results.?? -At the time of this dictation, platelet counts were around 63,000, dropped from 110,000.?? Since she is asymptomatic, we can continue to monitor and only treat it if it is less than 30,000.?? She can benefit from Rituximab or TPO agents if any worsening. I personally spent a total of 20 minutes on the patient on this date of service including both [id number] and vak-brxp-eg-face time excluding any separately reportable services. ?? aml Roberta Alex MD CC: Alejandro Blevins MD documented in this encounter Plan of Treatment Upcoming Encounters Date Type Department Care Team (Late st Contact Info) Description 09/25/2024 11:30 AM ROPE COILING MACHINE OPERATOR Appointment [facility] [address] [place] [address] Roberta Alex MD [address] [place] [id number] 09/25/2024 11:40 AM ROPE COILING MACHINE OPERATOR Office Visit [facility] [address] [place] [address] [place] [address] Roberta Alex MD [address] [place] [address] documented as of this encounter Visit Diagnoses Diagnosis Thrombocytopenia (CMS/HCC)- Primary Thrombocytopenia, unspecified documented in this encounter Additional Health Concerns Infection Onset Date Last Indicated Resolved Time MRSA 06/05/2021 06/05/2021 documented as of this encounter Care Teams Puddler Helper Relationship Specialty Start Date End Date Alejandro Blevins MD PCP - General FAMILY PRACTICE 12/10/19 documented as of this encounter
--- OUTSIDE RECORDS SUMMARY | 2024-07-11 05:41 | XMS_ITS | Encounter Summary ---
Author Organization [facility] Address [address] [place] [address]. [place] [address] [place] [address] Care Team Providers Care Sound Engineer Audio Control Name Role Phone Alejandro Blevins MD Primary Care Provider [phone] Reason for Visit * Reason Onset Date Comments Lab Order 01/26/2022 Encounter Details Date Type Department Care Team (Late st Contact Info) Description 01/26/2022 Telephone [facility] [address] [place] [address] [place] [address] Steffany Clarke RN Lab Order Social History Tobacco Use Types Packs/Day Years Used Date Smoking Tobacco: Every Day Cigarettes Smokeless Tobacco: Never Alcohol Use Standard Drinks/Week Comments Not Currently 0 (1 standard drink = 0.6 oz pur e alcohol) Comments No Sex and Gender Information Value Date Recorded Sex Assigned at Not on file Legal Sex Female 11:30 PM INSPECTOR SUBASSEMBLIES Gender Identity Female 11/10/2021 3:09 PM CDT Sexual Orientation Straight 11/10/2021 3: 09 PM CDT documented as of this encounter Functional Status * RETIRED Are you deaf or do you have serious difficulty hearing Answer Date of Assessment Author Status No 07/30/2020 10:48 PM INSPECTOR SUBASSEMBLIES Acti ve * RETIRED Are you blind or do you have serious difficulty seeing, even when wearing glasses? Answer Date of Assessment Author Status No 07/30/2020 10:46 PM INSPECTOR SUBASSEMBLIES Acti ve * Do you have serious difficulty walking or climbing stairs? Answer Date of Assessment Author Status No 07/30/2020 10:46 PM INSPECTOR SUBASSEMBLIES Nella Le RN Active * Do you have difficulty dressing or bathing? Answer Date of Assessment Author Status No 07/30/2020 10:46 PM INSPECTOR SUBASSEMBLIES Nella Le RN Active * Because of [...] st Contact Info) Description 09/25/2024 11:30 AM INSPECTOR SUBASSEMBLIES Appointment [facility] [address] [place] [address] Roberta Alex MD [address] [place] [id number] 09/25/2024 11:40 AM INSPECTOR SUBASSEMBLIES Office Visit [facility] [address] [place] [address] Roberta Alex MD [address] [place] [address] documented as of this encounter Visit Diagnoses Not on filedocumented in this encounter Additional Health Concerns Infection Onset Date Last Indicated Resolved Time MRSA 06/05/2021 06/05/2021 documented as of this encounter Care Teams Sound Engineer Audio Control Relationship Specialty Start Date End Date Alejandro Blevins MD PCP - General FAMILY PRACTICE 12/10/19 documented as of this encounter
--- OUTSIDE RECORDS SUMMARY | 2024-07-11 05:41 | XMS_ITS | Encounter Summary ---
Author Organization [facility] Address [address] [place] [address]. [place], [place] [id number] [place] [address] Care Team Providers Care Photogrammetrist Name Role Phone Alejandro Blevins MD Primary Care Provider [phone] Reason for Referral * Imaging (Routine) - Closed Specialty Diagnoses / Procedures Referred By Scarlet guzman Referred To Contact RADIOLOGY Diagnoses Tendinitis of right rotator cuff Procedures MRI SHOULDER RT WO CON Zeeshan Anderson FNP-BC [address] [place] [address] Phone: tel: fax: Referral ID Status Reason Start Date Expiration Date Visits Re quested Visits Authorized [id number] Closed 10/07/2022 10/08/2023 1 1 Reason for Visit * Imaging (Routine) - Closed Specialty Diagnoses / Procedures Referred By Scarlet guzman Referred To Contact RADIOLOGY Diagnoses Tendinitis of right rotator cuff Procedures MRI SHOULDER RT WO CON Zeeshan Anderson FNP-BC [address] [place] [address] Phone: tel: fax: Referral ID Status Reason Start Date Expiration Date Visits Re quested Visits Authorized [id number] Closed 10/07/2022 10/08/2023 1 1 Encounter Details Date Type Department Care Team (Late st Contact Info) Description 10/22/2022 9:56 AM CDT - 10/22/2022 11:59 PM CDT Hospital Encounter [facility] [address] [place] [address] Zeeshan Anderson, [facility] [address] [place] [address] Discharge Disposition: Home or Self Care (Routine Discharge) Social History Tobacco Use Types Packs/Day Years Used Date Smoking Tobacco: Every Day Cigarettes Smokeless Tobacco: Never Alcohol Use Standard Drinks/Week Comments Not Currently 0 (1 standard drink = 0.6 oz pur e alcohol) Comments No Sex and Gender Information Value Date Recorded Sex Assigned at Not on file Legal Sex Female 11:30 PM HEAT AND FROST INSULATOR Gender Identity Female 11/10/2021 3:09 PM CDT [...] Assessment Author Status No 07/30/2020 10:48 PM HEAT AND FROST INSULATOR Acti ve * RETIRED Are you blind or do you have serious difficulty seeing, even when wearing glasses? Answer Date of Assessment Author Status No 07/30/2020 10:46 PM HEAT AND FROST INSULATOR Acti ve * Do you have serious [...] st Contact Info) Description 09/25/2024 11:30 AM HEAT AND FROST INSULATOR [address]ment [address] [place] [address] Roberta Alex MD [address] [place] [address] 09/25/2024 11:40 AM HEAT AND FROST INSULATOR Office Visit [facility] [address] [place], [place] [address] [address] Roberta Alex MD [address] [place] [address] documented as of this encounter Procedures Procedure Name Priority Date/Time Associated Diagnosis Comments MRI SHOULDER RT WO CON Routine 10/22/2022 11:10 AM CDT Tendinitis of right rotator cuff documented in this encounter Results * MRI SHOULDER RT [...] By: Gal Díaz MD, 10/22/2022 3:49 PM us Zeeshan Anderson TEACHER'S AIDE-BC MRI Final Resu lt documented in this encounter Visit Diagnoses Diagnosis Tendinitis of right rotator cuff Disorders of bursae and tendons in shoulder region, unspecified documented in this encounter Additional Health Concerns Infection Onset Date Last Indicated Resolved Time MRSA 06/05/2021 06/05/2021 documented as of this encounter Care Teams Photogrammetrist Relationship Specialty Start Date End Date Alejandro Blevins MD PCP - General FAMILY PRACTICE 12/10/19 documented as of this encounter
--- OUTSIDE RECORDS SUMMARY | 2024-07-11 05:41 | XMS_ITS | Encounter Summary ---
Author Organization [facility] Address [address] [place] [address]. [place], [place] [address] [place] [address] Care Team Providers Care Records Management Engineer Name Role Phone Alejandro Blevins MD Primary Care Provider [phone] Encounter Details Date Type Department Care Team (Latest Contact Info) Description 12/07/2022 Travel Social History Tobacco Use Types Packs/Day Years Used Date Smoking Tobacco: Every Day Cigarettes Smokeless Tobacco: Never Alcohol Use Standard Drinks/Week Comments Not Currently 0 (1 standard drink = 0.6 oz pur e alcohol) Comments No Sex and Gender Information Value Date Recorded Sex Assigned at Not on file Legal Sex Female 11:30 PM HOUSE PARENT Gender Identity Female 11/10/2021 3:09 PM CDT [...] Author Status No 07/30/2020 10:48 PM HOUSE PARENT Acti ve * RETIRED Are you blind or do you have serious difficulty seeing, even when wearing glasses? Answer Date of Assessment Author Status No 07/30/2020 10:46 PM HOUSE PARENT Acti ve * Do you have serious difficulty walking or climbing stairs? Answer Date of Assessment Author Status No 07/30/2020 10:46 PM HOUSE PARENT Nella Le RN Active * Do you have difficulty dressing or bathing? Answer Date of Assessment Author Status No 07/30/2020 10:46 PM HOUSE PARENT Nella Le RN Active * Because of a physical, mental, or emotional condition, do you have difficulty doing errands alone such as visiting a doctor's office or shopping? Answer Date of Assessment Author Status No 07/30/2020 10:46 PM HOUSE PARENT Nella Le RN Active documented as of this encounter Mental Status * Because of a physical, mental, or emotional condition, do you have serious difficulty concentrating, remembering, or making decisions? Answer Entry Date Author Status No 07/30/2020 10:46 PM HOUSE PARENT Nella Le RN Active documented in this encounter Plan of Treatment Upcoming Encounters Date Type Department Care Team (Late st Contact Info) Description 09/25/2024 11:30 AM HOUSE PARENT Appointment [facility] [address] [place] [address] Roberta Alex MD [address] [place] [phone] 09/25/2024 11:40 AM HOUSE PARENT Office Visit [facility] [address] [place] [address] Roberta Alex MD [address] [place] [address] documented as of this encounter Visit Diagnoses Not on filedocumented in this encounter Additional Health Concerns Infection Onset Date Last Indicated Resolved Time MRSA 06/05/2021 06/05/2021 documented as of this encounter Care Teams Records Management Engineer Relationship Specialty Start Date End Date Alejandro Blevins MD PCP - General FAMILY PRACTICE 12/10/19 documented as of this encounter
--- OUTSIDE RECORDS SUMMARY | 2024-07-11 05:41 | XMS_ITS | Encounter Summary ---
Author Organization [facility] Address [address] [place] [address]. [place], [place] [address] [place] [address] Care Team Providers Care Clinical Biochemist Name Role Phone Alejandro Blevins MD Primary Care Provider [phone] Encounter Details Date Type Department Care Team (Latest Contact Info) Description 10/28/2022 Travel Social History Tobacco Use Types Packs/Day Years Used Date Smoking Tobacco: Every Day Cigarettes Smokeless Tobacco: Never Alcohol Use Standard Drinks/Week Comments Not Currently 0 (1 standard drink = 0.6 oz pur e alcohol) Comments No Sex and Gender Information Value Date Recorded Sex Assigned at Not on file Legal Sex Female 11:30 PM STRAW HAT WASHER OPERATOR Gender Identity Female 11/10/2021 3:09 PM [...] Assessment Author Status No 07/30/2020 10:48 PM STRAW HAT WASHER OPERATOR Acti ve * RETIRED Are you blind or do you have serious difficulty seeing, even when wearing glasses? Answer Date of Assessment Author Status No 07/30/2020 10:46 PM STRAW HAT WASHER OPERATOR Acti ve * Do you have serious difficulty walking or climbing stairs? Answer Date of Assessment Author Status No 07/30/2020 10:46 PM STRAW HAT WASHER OPERATOR Nella eL RN Active * Do you have difficulty dressing or bathing? Answer Date of Assessment Author Status No 07/30/2020 10:46 PM STRAW HAT WASHER OPERATOR Nella Le RN Active * Because of a physical, mental, or emotional condition, do you have difficulty doing errands alone such as visiting a doctor's office or shopping? Answer Date of Assessment Author Status No 07/30/2020 10:46 PM STRAW HAT WASHER OPERATOR Nella Le RN Active documented as of this encounter Mental Status * Because of a physical, mental, or emotional condition, do you have serious difficulty concentrating, remembering, or making decisions? Answer Entry Date Author Status No 07/30/2020 10:46 PM STRAW HAT WASHER OPERATOR Nella Le RN Active documented in this encounter Plan of Treatment Upcoming Encounters Date Type Department Care Team (Late st Contact Info) Description 09/25/2024 11:30 AM STRAW HAT WASHER OPERATOR Appointment [facility] [address] [place] [address] Roberta Alex MD [address] [place] [id number] 09/25/2024 11:40 AM STRAW HAT WASHER OPERATOR Office Visit [facility] [address] [place] [address] Roberta Alex MD [address] [place] [address] documented as of this encounter Visit Diagnoses Not on filedocumented in this encounter Additional Health Concerns Infection Onset Date Last Indicated Resolved Time MRSA 06/05/2021 06/05/2021 documented as of this encounter Care Teams Clinical Biochemist Relationship Specialty Start Date End Date Alejandro Blevins MD PCP - General FAMILY PRACTICE 12/10/19 documented as of this encounter
--- OUTSIDE RECORDS SUMMARY | 2024-07-11 05:41 | XMS_ITS | Encounter Summary ---
Author Organization [facility] Address [address] [place] [address]. [place] [address] [place] [address] Care Team Providers Care Librarian Special Library Name Role Phone Alejandro Blevins MD Primary Care Provider [phone] Reason for Visit * Reason Onset Date Comments Concerns 11/29/2022 Encounter Details Date Type Department Care Team ([facility] st Contact Info) Description 11/29/[address] [place] [address] Roberta Alex MD [address] [place] [address] Concerns Social History Tobacco Use Types Packs/Day Years Used Date Smoking Tobacco: Every Day Cigarettes Smokeless Tobacco: Never Alcohol Use Standard Drinks/Week Comments Not Currently 0 (1 standard drink = 0.6 oz pur e alcohol) Comments No Sex and Gender Information Value Date Recorded Sex Assigned at Not on file Legal Sex Female 11:30 PM PATTERNMAKER BENCH Gender Identity Female 11/10/2021 3:09 PM CDT Sexual Orientation Straight 11/10/2021 3: 09 PM CDT documented as of this encounter Functional Status * RETIRED Are you deaf or do you have serious difficulty hearing Answer Date of Assessment Author Status No 07/30/2020 10:48 PM PATTERNMAKER BENCH Acti ve * RETIRED Are you blind or do you have serious difficulty seeing, even when wearing glasses? Answer Date of Assessment Author Status No 07/30/2020 10:46 PM PATTERNMAKER BENCH Acti ve * Do you have [...] Progress Notes * Betty Perez MA - 11/29/2022 1:10 PM CDT Patient called in advising she was in ER in [place] yesterday 11/28/2022. Patient stated that she had lab work drawn (this has been scanned into [employer]) and that her PLTs were low and other issues on her labs that she is concerned about. Patient states that she is very tired and even had to have her daughter stay home from school to help take care of her babies since she is too tired to do it. documented in this encounter Plan of Treatment Upcoming Encounters Date Type Department Care Team (Late st Contact [facility]) Description 09/25/2024 11:30 AM PATTERNMAKER BENCH Appointment [facility] [address] [place] [address] Roberta Alex MD [address] [place] [address] 09/25/2024 11:40 AM PATTERNMAKER BENCH Office Visit [facility] [address] [place] [address] Roberat Alex MD [address] [place] [address] documented as of this encounter Visit Diagnoses Not on filedocumented in this encounter Additional Health Concerns Infection Onset Date Last Indicated Resolved Time MRSA 06/05/2021 06/05/2021 documented as of this encounter Care Teams Librarian Special Library Relationship Specialty Start Date End Date Alejandro Blevins MD PCP - General FAMILY PRACTICE 12/10/19 documented as of this encounter
--- OUTSIDE RECORDS SUMMARY | 2024-07-11 05:41 | XMS_ITS | Encounter Summary ---
Author Organization [facility] Address [address] [place] [address]. [place], [place] [address] [place] [address] Care Team Providers Care Substance Abuse Technician Name Role Phone Alejandro Blevins MD Primary Care Provider [phone] Reason for Referral * Physical Medicine (Routine) - Closed Specialty Diagnoses / Procedures Referred By Scarlet guzman Referred To Contact PHYSICAL THERAPY Diagnoses Tendinitis of right rotator cuff Medial epicondylitis of right elbow Procedures OFFICE/OUTPT VISIT,NEW,LEVL III OFFICE/OUTPT VISIT,NEW,LEVL IV OFFICE/OUTPT VISIT,NEW,LEVL V OFFICE/OUTPT VISIT,EST,LEVL III OFFICE/OUTPT VISIT,EST,LEVL IV OFFICE/OUTPT VISIT,EST,LEVL V Janice Anderson FNP-BC [address] [place] [address] Phone: tel: fax: [facility] [address] [place] [address] Phone: tel: fax: Referral ID Status Reason Start Date Expiration Date V isits Requested Visits Authorized [id number] Closed Physical Therapy 10/18/2022 11/18/2023 1 1 Reason for Visit * Reason Onset Date Comments Physical Therapy 10/18/2022 Encounter Details Date Type Department Care Team (Late st Contact Info) Description 10/18/2022 Telephone [facility] [address] [place] [address] Juan A Quintero, RN Physical Therapy Social History Tobacco Use Types Packs/Day Years Used Date Smoking Tobacco: Every Day Cigarettes Smokeless Tobacco: Never Alcohol Use Standard Drinks/Week Comments Not Currently 0 (1 standard drink = 0.6 oz pur e alcohol) Comments No Sex and Gender Information Value Date Recorded Sex Assigned at Not on file Legal Sex Female 11:30 PM LIBRARY SERIALS ASSISTANT Gender Identity Female 11/10/2021 3:09 PM [...] Assessment Author Status No 07/30/2020 10:48 PM LIBRARY SERIALS ASSISTANT Acti ve * RETIRED Are you blind or do you have serious difficulty seeing, even when wearing glasses? Answer Date of Assessment Author Status No 07/30/2020 10:46 PM LIBRARY SERIALS ASSISTANT Acti ve * Do you have serious difficulty walking or climbing stairs? Answer Date of Assessment Author Status No 07/30/2020 10:46 PM LIBRARY SERIALS ASSISTANT Nella Le RN Active * Do you have difficulty dressing or bathing? Answer Date of Assessment Author Status No 07/30/2020 10:46 PM LIBRARY SERIALS ASSISTANT Nella Le RN Active * Because of a physical, mental, or emotional condition, do you have difficulty doing errands alone such as visiting a doctor's office or shopping? Answer Date of Assessment Author Status No 07/30/2020 10:46 PM LIBRARY SERIALS ASSISTANT Nella Le RN Active documented as of this encounter Mental Status * Because of a physical, mental, or emotional condition, do you have serious difficulty concentrating, remembering, or making decisions? Answer Entry Date Author Status No 07/30/2020 10:46 PM LIBRARY SERIALS ASSISTANT Nella Le RN Active documented in this encounter Progress Notes * Juan A Quintero RN - 10/18/2022 4:39 PM CDT ----- Message from Fanny Martini CNA sent at 10/18/2022 4:32 PM CDT ----- They need the order to be PT there OT is out she had a baby. New order faxed to [facility] in [place] at this time. documented in this encounter Plan of Treatment Upcoming Encounters Date Type Department Care Team (Late st Contact Info) Description 09/25/2024 11:30 AM LIBRARY SERIALS ASSISTANT Appointment [facility] [address] [place] [address] [place] [address] Roberta Alex MD [address] [place] [address] 09/25/2024 11:40 AM LIBRARY SERIALS ASSISTANT Office Visit [facility] [address] [place], [place] [address] [place] [address] Roberta Alex MD [address] [place] [address] Scheduled Referrals Name Type Priority Associated Diagnoses Orde r Schedule Ambulatory referral to Physical Therapy Referral Routine Tendinitis of right rotator cuff Medial epicondylitis of right elbow Ordered: 10/18/2022 documented as of this encounter Visit Diagnoses Diagnosis Tendinitis of right rotator cuff- Primary Disorders of bursae and tendons in shoulder region, unspecified Medial epicondylitis of right elbow Medial epicondylitis of elbow documented in this encounter Additional Health Concerns Infection Onset Date Last Indicated Resolved Time MRSA 06/05/2021 06/05/2021 documented as of this encounter Care Teams Substance Abuse Technician Relationship Specialty Start Date End Date Alejandro Blevins MD PCP - General FAMILY PRACTICE 12/10/19 documented as of this encounter
--- OUTSIDE RECORDS SUMMARY | 2024-07-11 05:41 | XMS_ITS | Encounter Summary ---
Author Organization [facility] Address [facility] [facility] [place] [address] [place] [address] Care Team Providers Care Csr Technician Name Role Phone Alejandro Blevins MD Primary Care Provider [phone] Encounter Details Date Type Department Care Team (Late st Contact Info) Description 12/01/2022 Orders Only [address] [place] [address] Roberta Alex MD [address] [place] [address] Social History Tobacco Use Types Packs/Day Years Used Date Smoking Tobacco: Every Day Cigarettes Smokeless Tobacco: Never Alcohol Use Standard Drinks/Week Comments Not Currently 0 (1 standard drink = 0.6 oz pur e alcohol) Comments No Sex and Gender Information Value Date Recorded Sex Assigned at Not on file Legal Sex Female 11:30 PM STUDIO DIRECTOR Gender Identity Female 11/10/2021 3:09 PM [...] Assessment Author Status No 07/30/2020 10:48 PM STUDIO DIRECTOR Acti ve * RETIRED Are you blind or do you have serious difficulty seeing, even when wearing glasses? Answer Date of Assessment Author Status No 07/30/2020 10:46 PM STUDIO DIRECTOR Acti ve * Do you have [...] Date Type Department Care Team (Late st [facility] Info) Description 09/25/2024 11:30 AM STUDIO DIRECTOR Appointment [facility] [address] Roberta Alex MD [address] [place] [address] 09/25/2024 11:40 AM STUDIO DIRECTOR Office Visit [facility] [address] [place] [address] Roberta Alex MD [address] [place] [address] documented as of this encounter Results * FERRITIN (12/07/2022 10:51 AM CDT) FERRITIN 13.8 8 - 252 NG/ML 12/07/2022 11:31 AM CDT [facility] 12/07/2022 10:5 1 AM CDT Roberta Alex MD LABORATORY Final Result [facility] [address] [place] [address], * IRON SAT PANEL (IRON,IBC,%SAT) (12/07/2022 10:51 AM CDT) IRON 89 50 - 170 MCG/DL 12/07/2022 12:24 PM CDT [facility] IRON BINDING CAPACITY 373 250 - 450 MCG/DL 12/07/2022 12:24 PM CDT [facility] IRON SATURATION 24 % 12:24 PM CDT [facility] Comment:REFERENCE RANGE NOT ESTABLISHED 12/07/2022 10:5 1 AM CDT Roberta Alex MD LABORATORY Final Result Performing Organization Address [facility]/ZIP Co de Phone Number [facility] [address] [place] [phone], * (ABNORMAL) CBC W/DIFF AUTOMATED (12/07/2022 10:51 AM CDT) WBC 7.28 4.00 - 10.80 x10'3/uL 12/07/2022 11:10 AM CDT [facility] RBC 5.13 4.10 - 5.40 x10'6/uL 12/07/2022 11:10 AM CDT [facility] HGB 14.6 12.0 - 16.0 G/DL 12/07/2022 11:10 AM CDT [facility] HCT 46.1 36.0 - 47.0 % 12/07/2022 11:10 AM CDT [facility] MCV 89.9 78.0 - 100.0 FL 12/07/2022 11:10 AM CDT [facility] MCH 28.5 27.0 - 31.0 PG 12/07/2022 11:10 AM CDT [facility] MCHC 31.7(L) 33.0 - 36.0 G/DL 12/07/2022 11:10 AM CDT [facility] RDW 13.1 11.5 - 14.5 % 12/07/2022 11:10 AM CDT [facility] PLT 36(L) 150 - 350 x10'3/uL 12/07/2022 11:10 AM CDT [facility] MPV RESULTS NOT AVAILABLE 7.4 - 10.4 FL 12/07/2022 11:10 AM CDT [facility] CBC COMMENT NORMAL REFERENCE RANGE NOT ESTABLISHED FOR THE PROPORTIONAL LEUKOCYTE DIFFERENTIAL. 12/07/2022 11:10 AM CDT [facility] NEUTROPHILS % 56.4 % 12/07/2022 11:34 AM CDT [facility] LYMPHOCYTES % 30.8 % 12/07/2022 11:34 AM CDT [facility] MONOCYTES % 6.9 % 12/07/2022 11:34 AM CDT [facility] EOSINOPHILS % 4.8 % 12/07/2022 11:34 AM CDT [facility] BASOPHILS % 1.0 % 12/07/2022 11:34 AM CDT [facility] IMMATURE GRANS % 0.1 % 12/08/19 11:34 AM CDT [facility] NRBC 0.0 % 12/07/2022 11:34 AM CDT [facility] ABS. NEUTROPHILS 4.11 1.60 - 8.30 x10'3/uL 12/07/2022 11:34 AM CDT [facility] ABS. LYMPHOCYTES 2.24 0.80 - 4.70 x10'3/uL 12/07/2022 11:34 AM CDT [facility] ABS. MONOCYTES 0.50 0.00 - 1.50 x10'3/uL 12/07/2022 11:34 AM CDT [facility] ABS. EOSINOPHILS 0.35 0.00 - 0.40 x10'3/uL 12/07/2022 11:34 AM CDT [facility] ABS. BASOPHILS 0.07 0.00 - 0.20 x10'3/uL 12/07/2022 11:34 AM CDT [facility] ABS. IMMATURE GRANULOCYTES 0.01 0.00 - 0.03 x10'3/uL 12/07/2022 11:34 AM CDT [facility] ABS. NUCLEATED RBC'S 0.00 0.00 x10'3/uL 12/07/2022 11:34 AM CDT [facility] PLT MORPH. DECREASED 12/07/2022 11:34 AM CDT [facility] RBC MORPHOLOGY 1+ 12/07/2022 11:34 AM CDT [facility] Comment: ANISOCYTOSIS 1+ POIKILOCYTOSIS 12/07/2022 10:5 1 AM CDT Roberta Alex MD LABORATORY Final Result [facility] [address] [place] [place] [address], documented in this encounter Visit Diagnoses Diagnosis Thrombocytopenia (CMS/HCC)- Primary Thrombocytopenia, unspecified documented in this encounter Additional Health Concerns Infection Onset Date Last Indicated Resolved Time MRSA 06/05/2021 06/05/2021 documented as of this encounter Care Teams Csr Technician Relationship Specialty Start Date End Date Alejandro Blevins MD PCP - General FAMILY PRACTICE 12/10/19 documented as of this encounter
--- OUTSIDE RECORDS SUMMARY | 2024-07-11 05:41 | XMS_ITS | Encounter Summary ---
Author Organization [facility] Address [address] [place] [address]. [place] [address] [place] [address] Care Team Providers Care Women'S Studies Lecturer Name Role Phone Alejandro Blevins MD Primary Care Provider [phone] Reason for Visit * Reason Comments Follow Up Thrombocytopenia Lab Results Encounter Details Date Type Department Care Team (Late st Contact Info) Description 12/07/2022 10:40 AM CDT Office Visit [address] [place] [address] Roberta Alex MD [address] [place] [address] Follow Up (Thrombocytopenia); Lab Results Social History Tobacco Use Types [...] file Legal Sex Female 11:30 PM MACHINE OR MACHINERY MECHANIC Gender Identity Female 11/10/2021 3:09 PM [...] Sign Reading Time Taken Comments Blood Pressure 129/82 12/07/2022 11:15 AM CDT Pulse 67 12/07/2022 11:15 AM CDT Temperature 36.3 ??C (97.3 ??F) 12/07/2022 11:15 AM C DT Respiratory Rate 18 12/07/2022 11:15 AM CDT Oxygen Saturation 99% 12/07/2022 11:15 AM CDT Inhaled Oxygen Concentration - - Weight 76 kg (167 lb 9.6 oz) 12/07/2022 11:15 AM CDT Height - - Body Mass Index 29.69 10/28/2022 3:44 PM CDT documented in this encounter Functional Status * RETIRED Are you deaf or do you have serious difficulty hearing Answer Date of Assessment Author Status No 07/30/2020 10:48 PM MACHINE OR MACHINERY MECHANIC Acti ve * RETIRED Are you blind or do you have serious difficulty seeing, even when wearing glasses? Answer Date of Assessment Author Status No 07/30/2020 10:46 PM MACHINE OR MACHINERY MECHANIC Acti ve * Do you have [...] Progress Notes * Roberta Alex MD - 12/07/2022 10:40 AM CDT HEMATOLOGY/ONCOLOGY NOTE IDENTIFYING DATA: Hillary Smalls is a 32-year-old female REASON FOR VISIT: Follow Up (Thrombocytopenia) and Lab Results HEMATOLOGY HISTORY: Hillary Smalls is a 30-year-old female with hx of ITP, hepatitis C, polysubstance abuse,established care with me when she was with twins at 20 weeks gestation in 11/2019 and had no care. 1. ITP: Previously followed with [facility] occupational therapist home based Dr. Dick Bonilla. - 11/2019- 03/2020: Platelet [...] related anemia- on supplements. INTERVAL HISTORY: Today Hillary returns for followup to discuss her acute concerns. She reports noticing significant drop in her energy levels. Feels fatigued, tired, all the time. She had a migraine for 3-1/2 days that prompted an ER visit requiring IV Toradol and that slowly helped her pain. She reports having increased menstrual bleeding in the last 2-3 weeks. She has been on an IUD and has not had any cycles for the past year or two. She denies any blood in stools or dark black colored stools. She notices pressure in her upper chest area, especially when she bends down, and has noticed mild discomfort in that area as well. She denies any increased cough. She also notices some tightness in her mid-epigastric area. 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 She states she loves her job and would like to continue but with her current energy level, she is not able to maintain her standards and she fears that she will be fired fromher job. She is constantly working two shifts and taking care of her twins and her other daughter. REVIEW OF SYSTEMS: CONST: Worsening fatigue and chills. ENT: No difficulty swallowing. RESP: Mild upper chest discomfort and pressure. CV: No chest pain. : No urinary symptoms or frequency. MSK: No new joint pain or joint swelling. H/L/IMMEDIATE: Increased bleeding and bruising and increased menstrual cycle related bleeding. ENDO: No cold or heat intolerance. Reviewed past [...] Current Outpatient Medications Medication Sig Dispense Refill xyroeyu-[id number] (EXCEDRIN MIGRAINE) 250-250-65 MG tablet Take 1 tablet by mouth every 6 (six) hours as needed for Pain. ibuprofen (MOTRIN) 200 MG tablet Take 3 tablets (600 mg total) by mouth every 6 (six) hours as needed for Pain. No current facility-administered medications for this visit. Review of patient's allergies indicates: Allergen Reactions Bee Venom Anaphylaxis Iodinated Contrast Media Anaphylaxis Shellfish Allergy Anaphylaxis VITALS: Height: 5' 3 (1.6 m) , Weight: 76 kg (167 lb 9.6 oz) , BSA (Calculated - sq m): 1.78 sq meters , BP: 129/82 , Temp: 97.3 ??F (36.3 ??C) , Pulse: 67 , Resp: 18 PHYSICAL EXAMINATION: CONST: Overall is in usual health and no acute distress. Appears tired. EYES: No icterus. ENT: Oral mucosa moist. [...] ABS. NEUTROPHILS Date Value Ref Range Status 11/29/2022 4.80 1.60 - 8.30 x10'3/uL Final WBC Date Value Ref Range Status 12/07/2022 7.28 4.00 - 10.80 x10'3/uL Final HGB Date Value Ref Range Status 12/07/2022 14.6 12.0 - 16.0 G/DL Final HCT Date Value Ref Range Status 12/07/2022 46.1 36.0 - 47.0 % Final PLT Date Value Ref Range Status 12/07/2022 36 (L) 150 - 350 x10'3/uL Final ASSESSMENT AND PLAN: 1. Relapsed ITP. 2. History of iron deficiency secondary to menorrhagia. 3. Concern for APLS in the past. 4. History of chronic HCV infection, s/p hepatitis C antiviral treatment. - I reviewed her blood work done recently. Platelet counts have continued to trend down and today it is at 36,000 from 50,000. This is consistent with relapsing ITP. She previously was steroid responsive. Last treatments were almost 2 years ago. - We discussed about various options including repeating/rechallenging with dexamethasone, rituximab, TPO agonist. Patient would like to have a faster response so that she can get back to work and have good energy levels. She is willing to try the dexamethasone 40 mg oral daily x4 days along with food. Side effects were explained in detail. I will also go ahead and send omeprazole 20 mg daily to be taken 30 minutes to an hour before breakfast for 30 days with one refill. - I have also suggested labs every week to see if it is showing a trend upwards. - Also, iron studies show mild deficiency without any anemia. Considering her symptomatic fatigue, which could be related to ITP, we will also consider IV Venofer 200 mg q. weekly x4 doses and see ifthis boosts her iron stores enough to help with her fatigue. - I have also encouraged her to consider small exercise tolerance programs to see if she can build her strength and stamina while we wait for the platelets and iron studies to improve. - I will also obtain a CT scan of chest and abdomen to ensure she has no new evidence of disease that explains her drop in platelet counts. - RTC in 4 weeks with repeat CBC and iron studies or sooner if needed. Patient comfortable with theplan. aml Roberta Alex MD CC: Alejandro Blevins MD documented in this encounter Plan of Treatment Upcoming Encounters Date Type Department Care Team (Late st Contact Info) Description 09/25/2024 11:30 AM MACHINE OR MACHINERY MECHANIC Appointment [facility] [address] [place] [address] Roberta Alex MD [address] [place], [place] [address] 09/25/2024 11:40 AM MACHINE OR MACHINERY MECHANIC Office Visit [facility] [address] [place] [address] Roberta lAex MD [address] [place] [address] documented as of this encounter Visit Diagnoses Diagnosis Acute ITP ([facility]/HCC)- Primary Immune thrombocytopenic purpura Iron deficiency Iron deficiency anemia, unspecified Other fatigue documented in this encounter Additional Health Concerns Infection Onset Date Last Indicated Resolved Time MRSA 06/05/2021 06/05/2021 documented as of this encounter Care Teams Women'S Studies Lecturer Relationship Specialty Start Date End Date Alejandro Blevins MD PCP - General FAMILY PRACTICE 12/10/19 documented as of this encounter
--- OUTSIDE RECORDS SUMMARY | 2024-07-11 05:41 | XMS_ITS | Encounter Summary ---
Author Organization [facility] Address [address] [place] [address]. [place], [place] [address] [place] [address] Care Team Providers Care Ice Seller Name Role Phone Alejandro Blevins MD Primary Care Provider [phone] Encounter Details Date Type Department Care Team (Latest Contact Info) Description 11/29/2022 Travel Social History Tobacco Use Types Packs/Day Years Used Date Smoking Tobacco: Every Day Cigarettes Smokeless Tobacco: Never Alcohol Use Standard Drinks/Week Comments Not Currently 0 (1 standard drink = 0.6 oz pur e alcohol) Comments No Sex and Gender Information Value Date Recorded Sex Assigned at Not on file Legal Sex Female 11:30 PM DUMPING MACHINE OPERATOR Gender Identity Female 11/10/2021 3:09 [...] Assessment Author Status No 07/30/2020 10:48 PM DUMPING MACHINE OPERATOR Acti ve * RETIRED Are you blind or do you have serious difficulty seeing, even when wearing glasses? Answer Date of Assessment Author Status No 07/30/2020 10:46 PM DUMPING MACHINE OPERATOR Acti ve * Do you have serious difficulty walking or climbing stairs? Answer Date of Assessment Author Status No 07/30/2020 10:46 PM DUMPING MACHINE OPERATOR Nella Le RN Active * Do you have difficulty dressing or bathing? Answer Date of Assessment Author Status No 07/30/2020 10:46 PM DUMPING MACHINE OPERATOR Nella Le RN Active * Because of a physical, mental, or emotional condition, do you have difficulty doing errands alone such as visiting a doctor's office or shopping? Answer Date of Assessment Author Status No 07/30/2020 10:46 PM DUMPING MACHINE OPERATOR Nella Le RN Active documented as of this encounter Mental Status * Because of a physical, mental, or emotional condition, do you have serious difficulty concentrating, remembering, or making decisions? Answer Entry Date Author Status No 07/30/2020 10:46 PM DUMPING MACHINE OPERATOR Nella Le RN Active documented in this encounter Plan of Treatment Upcoming Encounters Date Type Department Care Team (Late st Contact Info) Description 09/25/2024 11:30 AM DUMPING MACHINE OPERATOR Appointment [facility] [address] [place] [address] Roberta Alex MD [address] [place] [id number] 09/25/2024 11:40 AM DUMPING MACHINE OPERATOR Office Visit [facility] [address] [place] [address] Roberta Alex MD [address] [place] [address] documented as of this encounter Visit Diagnoses Not on filedocumented in this encounter Additional Health Concerns Infection Onset Date Last Indicated Resolved Time MRSA 06/05/2021 06/05/2021 documented as of this encounter Care Teams Ice Seller Relationship Specialty Start Date End Date Alejandro Blevins MD PCP - General FAMILY PRACTICE 12/10/19 documented as of this encounter
--- OUTSIDE RECORDS SUMMARY | 2024-07-11 05:41 | XMS_ITS | Encounter Summary ---
Author Organization [facility] Address [address] [place] [address]. [place] [address] [place] [address] Care Team Providers Care Service Inspector Name Role Phone Alejandro Blevins MD Primary Care Provider [phone] Reason for Visit * Reason Comments Infusion Therapy Injection * Treatment/Therapy Plan Authorization (Routine) - Closed Specialty Diagnoses / Procedures Referred By Contac t Referred To Contact Diagnoses Iron deficiency anemia due to chronic blood loss Procedures Roberta Evans MD [address] [place] [address] Phone: tel: fax: [facility] [place] [address] Phone: tel: Referral ID Status Reason Start Date Expiration Date Visits Re quested Visits Authorized [id number] Closed 12/07/2022 12/08/2023 1 1 Encounter Details Date Type Department Care Team (Latest Contact Info) Description 12/27/2022 12:21 PM CDT - 12/27/2022 11:59 PM CDT Hospital Encounter [facility] [place] [place] [address] Roberta Alex MD [address] [place] [address] Infusion Therapy; Injection Discharge Disposition: Home or Self Care [...] file Legal Sex Female 11:30 PM SALES HUNTER Gender Identity Female 11/10/2021 3:09 PM CDT [...] Sign Reading Time Taken Comments Blood Pressure 101/64 12/27/2022 12:47 PM CDT Pulse 82 12/27/2022 12:47 PM CDT Temperature 36.2 ??C (97.2 ??F) 12/27/2022 1 2:47 PM CDT Respiratory Rate 16 12/27/2022 12:4 7 PM CDT Oxygen Saturation 100% 12/27/2022 12: 47 PM CDT Inhaled Oxygen Concentration - - Weight 75.2 kg (165 lb 12.6 oz) 023 12:47 PM CDT Height - - Body Mass Index 29.37 10/28/2022 3:44 PM CDT documented in this encounter Functional Status * RETIRED Are you deaf or do you have serious difficulty hearing Answer Date of Assessment Author Status No 07/30/2020 10:48 PM SALES HUNTER Acti ve * RETIRED Are you blind or do you have serious difficulty seeing, even when wearing glasses? Answer Date of Assessment Author Status No 07/30/2020 10:46 PM SALES HUNTER Acti ve * Do you have serious difficulty walking or climbing stairs? Answer Date of Assessment Author Status No 07/30/2020 10:46 PM SALES HUNTER Nella Le RN Active * Do you [...] encounter Progress Notes * Cecilia Healy - 12/27/2022 12:30 PM CDTEncounter addended by: Cecilia Healy on: 12/28/2022 2:47 PM Actions taken: Charge Capture section accepted * Luis Gonzalez RN - 12/27/2022 12:30 PM CDT PATIENT ASSESSMENT: Admitted via: [...] be free from signs/symptoms of physical injury * Ana Andrews RN - 12/27/2022 12:30 PM CDT PATIENT ASSESSMENT: Admitted via: Ambulatory Admitted from: Home Planned procedure: infusion, injection Patient information verified by Ana Andrews RN. Barriers to learning: None Patient identity confirmed - Name and date of and Allergies Verified LOC: Alert Emotional: Calm Motor Activity: Gait steady Respiratory: Regular and even Circulatory: wdl Nutrition: Tolerated diet well Elimination: Voiding NURSING [...] Contact Info) Description 09/25/2024 11:30 AM SALES HUNTER Appointment [facility] [address] [place] [address] Roberta Alex MD [address] [place] [address] 09/25/2024 11:40 AM SALES HUNTER Office [facility] [place] [address] Roberta Alex MD [address] [place] [address] documented as of this encounter Visit Diagnoses Diagnosis Iron deficiency anemia due to chronic blood loss- Primary Iron deficiency anemia secondary to blood loss (chronic) Chronic ITP (idiopathic thrombocytopenia) ([facility]/HCC [facility]/HCC) Immune thrombocytopenic purpura Thrombocytopenia ([facility]/HCC) Thrombocytopenia, unspecified documented in this encounter Administered Medications Inactive Administered Medications - up to 3 most recent administrations Medication Order MAR Action Action Date Dose Rate Site iron sucrose (VENOFER) 200 mg in sodium chloride 0.9 % 100 mL IVPB 200 mg, Intravenous, at 100 mL/hr, Once, 1 dose, On Tue12/27/22 at 1245Indications:Iron deficiency anemia due to chronic blood loss New Bag 12/27/2022 1:03 PM CDT 200 mg 200 mL/hr romiPLOStim (NPLATE) injection 75.2 mcg 75.2 mcg (1 mcg/kg ? 75.2 kg), Subcutaneous, Weekly, First dose on 12/27/22 at 1345, Until Discontinued, MAX weekly dose 10 mcg/kg. Adjust the dose of Romiplostim (Nplate) following perscribing information. Hold if PLTS greater than 150.Indications:Chronic ITP (idiopathic thrombocytopenia) ([facility]/HCC [facility]),Thrombocytopenia ([facility]) Given 12/27/2022 1:49 PM CDT 75.2 mcg Left Arm documented in this encounter Additional Health Concerns Infection Onset Date Last Indicated Resolved Time MRSA 06/05/2021 06/05/2021 documented as of this encounter Care Teams Service Inspector Relationship Specialty Start Date End Date Alejandro Blevins MD PCP - General FAMILY PRACTICE 12/10/19 documented as of this encounter
--- OUTSIDE RECORDS SUMMARY | 2024-07-11 05:41 | XMS_ITS | Encounter Summary ---
Author Organization [facility] Address [address] [place] [address]. [place] [address] [place] [address] Care Team Providers Care Spar Finisher Name Role Phone Alejandro Blevins MD Primary Care Provider [phone] Reason for Visit * Reason Comments Infusion Therapy * Treatment/Therapy Plan Authorization (Routine) - Closed Specialty Diagnoses / Procedures Referred By Contac t Referred To Contact Diagnoses Iron deficiency anemia due to chronic blood loss Procedures Roberta Evans MD [address] [place] [address] Phone: tel: fax: [facility] [place] [place] [address] Phone: tel: Referral ID Status Reason Start Date Expiration Date Visits Re quested Visits Authorized [id number] Closed 12/07/2022 12/08/2023 1 1 Encounter Details Date Type Department Care Team (Latest Contact Info) Description 12/07/2022 10:41 AM CDT - 12/07/2022 11:59 PM T Hospital Encounter [facility] [place] [address] Roberta Alex MD [address] [place], [place] [address] Infusion Therapy Discharge Disposition: Home or Self [...] on file Legal Sex Female 11:30 PM STRAIN TECHNICIAN Gender Identity Female 11/10/2021 3:09 PM [...] Sign Reading Time Taken Comments Blood Pressure 116/76 12/07/2022 1:35 PM CDT Pulse 63 12/07/2022 1:35 PM CDT Temperature 36.5 ??C (97.7 ??F) 12/07/2022 1:35 PM CD T Respiratory Rate 16 12/07/2022 1:35 PM CDT Oxygen Saturation 100% 12/07/2022 1:35 PM CDT Inhaled Oxygen Concentration - - Weight - - Height - - Body Mass Index - - documented in this encounter Functional Status * RETIRED Are you deaf or do you have serious difficulty hearing Answer Date of Assessment Author Status No 07/30/2020 10:48 PM STRAIN TECHNICIAN Acti ve * RETIRED Are you blind or do you have serious difficulty seeing, even when wearing glasses? Answer Date of Assessment Author Status No 07/30/2020 10:46 PM STRAIN TECHNICIAN Acti ve * Do you have [...] 6 (six) hours as needed for Pain. dexamethasone (DECADRON) 4 MG tabletIndication s:Acute ITP (CMS/HCC HHS/HCC) Take 10 tablets (40 mg total) by mouth daily with breakfast for 4 days. 40 tablet 12/07/2022 3 omeprazole (PRILOSEC) 20 MG capsuleIndicatio ns:Acute ITP (CMS/HCC HHS/HCC) Take 1 capsule (20 mg total) by mouth daily. 30 capsule 1 12/07/2022 3 documented as of this encounter Progress Notes * Ana Andrews RN - 12/07/2022 11:00 AM CDTEncounter addended by: Ana Andrews RN on: 12/07/2022 2:55 PM Actions taken: Flowsheet accepted * Cecilia Healy - 12/07/2022 11:00 AM CDTEncounter addended by: Cecilia Healy on: 12/08/2022 10:28 AM Actions taken: Charge Capture section accepted * Radha Novoa RN - 12/07/2022 11:00 AM CDT PATIENT ASSESSMENT: Admitted via: Ambulatory Admitted from: Home Planned procedure: scheduled venofer Patient information verified by RADHA NOVOA RN. [...] st Contact Info) Description 09/25/2024 11:30 AM STRAIN TECHNICIAN Appointment [facility] [place] [address] Roberta Alex MD [address] [place] [address] 09/25/2024 11:40 AM STRAIN TECHNICIAN Office Visit [facility] [place] [address] Roberta Alex MD [address] [place] [address] documented as of this encounter Visit Diagnoses [...] 100 mL IVPB 200 mg, Intravenous, at 133.3 mL/hr, Once, 1 dose, On Tue12/07/22 at 1315Indications:Iron deficiency anemia due to chronic blood loss New Bag 12/07/2022 1:18 PM CDT 200 mg 133.3 mL/hr documented in this encounter Additional Health Concerns Infection Onset Date Last Indicated Resolved Time MRSA 06/05/2021 06/05/2021 documented as of this encounter Care Teams Spar Finisher Relationship Specialty Start Date End Date Alejandro Blevins MD PCP - General FAMILY PRACTICE 12/10/19 documented as of this encounter
--- OUTSIDE RECORDS SUMMARY | 2024-07-11 05:41 | XMS_ITS | Encounter Summary ---
Author Organization [facility] Address [address] [place] [address]. [place], [place] [address] [place] [address] Care Team Providers Care Administrative Tech Name Role Phone Alejandro Blevins MD Primary Care Provider [phone] Encounter Details Date Type Department Care Team (Latest Contact Info) Description 06/03/2021 Travel Social History Tobacco Use Types Packs/Day Years Used Date Smoking Tobacco: Former Smokeless Tobacco: Current Comments No Sex and Gender Information Value Date Recorded Sex Assigned at Not on file Legal Sex Female 11:30 PM POTATO PEELING MACHINE OPERATOR Gender Identity Female 11/10/2021 3:09 PM CDT Sexual Orientation Straight 11/10/2021 3: 09 PM CDT COVID-19 Exposure Response Date Recorded In the last month, have you been in contact with someone who was confirmed or suspected to have Coronavirus / COVID-19? No / Unsure 06/03/2021 2:13 PM POTATO PEELING MACHINE OPERATOR documented as of this encounter Functional Status * RETIRED Are you deaf or do you have serious difficulty hearing Answer Date of Assessment Author Status No 07/30/2020 10:48 PM POTATO PEELING MACHINE OPERATOR Acti ve * RETIRED Are you blind or do you have serious difficulty seeing, even when wearing glasses? Answer Date of Assessment Author Status No 07/30/2020 10:46 PM POTATO PEELING MACHINE OPERATOR Acti ve * Do you have serious difficulty walking or climbing stairs? Answer Date of Assessment Author Status No 07/30/2020 10:46 PM POTATO PEELING MACHINE OPERATOR Nella Le RN Active * Do you have difficulty dressing or bathing? Answer Date of Assessment Author Status No 07/30/2020 10:46 PM POTATO PEELING MACHINE OPERATOR Nella Le RN Active * [...] st Contact Info) Description 09/25/2024 11:30 AM POTATO PEELING MACHINE OPERATOR Appointment [place] [id number] [place] [address] Roberta Alex MD [address] [place] [address] 09/25/2024 11:40 AM POTATO PEELING MACHINE OPERATOR Office Visit [facility] [place] [address] Roberta Alex MD [address] [place] [phone] documented as of this encounter Visit Diagnoses Not on filedocumented in this encounter Care Teams Administrative Tech Relationship Specialty Start Date End Date Alejandro Blevins MD PCP - General FAMILY PRACTICE 12/10/19 documented as of this encounter
--- OUTSIDE RECORDS SUMMARY | 2024-07-11 05:41 | XMS_ITS | Encounter Summary ---
Author Organization [facility] Address [address] [place] [address]. [place], [place] [address] [place] [address] Care Team Providers Care Beam Warper Name Role Phone Alejandro Blevins MD Primary Care Provider [phone] Encounter Details Date Type Department Care Team (Latest Contact Info) Description 12/23/2022 Travel Social History Tobacco Use Types Packs/Day Years Used Date Smoking Tobacco: Every Day Cigarettes Smokeless Tobacco: Never Alcohol Use Standard Drinks/Week Comments Not Currently 0 (1 standard drink = 0.6 oz pur e alcohol) Comments No Sex and Gender Information Value Date Recorded Sex Assigned at Not on file Legal Sex Female 11:30 PM CHILD WELFARE COUNSELOR Gender Identity Female 11/10/2021 3:09 PM [...] Author Status No 07/30/2020 10:48 PM CHILD WELFARE COUNSELOR Acti ve * RETIRED Are you blind or do you have serious difficulty seeing, even when wearing glasses? Answer Date of Assessment Author Status No 07/30/2020 10:46 PM CHILD WELFARE COUNSELOR Acti ve * Do you have serious difficulty walking or climbing stairs? Answer Date of Assessment Author Status No 07/30/2020 10:46 PM CHILD WELFARE COUNSELOR Nella Le RN Active * Do you have difficulty dressing or bathing? Answer Date of Assessment Author Status No 07/30/2020 10:46 PM CHILD WELFARE COUNSELOR Nella Le RN Active * Because of a physical, mental, or emotional condition, do you have difficulty doing errands alone such as visiting a doctor's office or shopping? Answer Date of Assessment Author Status No 07/30/2020 10:46 PM CHILD WELFARE COUNSELOR Nella Le RN Active documented as of this encounter Mental Status * Because of a physical, mental, or emotional condition, do you have serious difficulty concentrating, remembering, or making decisions? Answer Entry Date Author Status No 07/30/2020 10:46 PM CHILD WELFARE COUNSELOR Nella Le RN Active documented in this encounter Plan of Treatment Upcoming Encounters Date Type Department Care Team (Late st Contact Info) Description 09/25/2024 11:30 AM CHILD WELFARE COUNSELOR Appointment [facility] [address] [address] Roberta Alex MD [address] [place] [phone] 09/25/2024 11:40 AM CHILD WELFARE COUNSELOR Office Visit [facility] [address] [address] Roberta Alex MD [address] [place] [address] documented as of this encounter Visit Diagnoses Not on filedocumented in this encounter Additional Health Concerns Infection Onset Date Last Indicated Resolved Time MRSA 06/05/2021 06/05/2021 documented as of this encounter Care Teams Beam Warper Relationship Specialty Start Date End Date Alejandro Blevins MD PCP - General FAMILY PRACTICE 12/10/19 documented as of this encounter
--- OUTSIDE RECORDS SUMMARY | 2024-07-11 05:41 | XMS_ITS | Encounter Summary ---
Author Organization [facility] Address [facility] [address] [place] [address] Care Team Providers Care Automobile Body Repair Supervisor Name Role Phone Alejandro Blevins MD Primary Care Provider [phone] Encounter Details Date Type Department Care Team (Latest Contact Info) Description 06/05/2021 2:04 PM ORDER TAKERS SUPERVISOR - 06/05/2021 11:59 PM ORDER TAKERS SUPERVISOR Hospital Encounter [address] [place] [address] Roberta Alex MD [address] [place] [address] Discharge Disposition: Home or Self Care (Routine Discharge) Social History Tobacco Use Types Packs/Day Years Used Date Smoking Tobacco: Former Smokeless Tobacco: Current Comments No Sex and Gender Information Value Date Recorded Sex Assigned at Not on file Legal Sex Female 11:30 PM ORDER TAKERS SUPERVISOR Gender Identity Female 11/10/2021 3:09 PM CDT Sexual Orientation Straight 11/10/2021 3: 09 PM CDT COVID-19 Exposure Response Date Recorded In the last month, have you been in contact with someone who was confirmed or suspected to have Coronavirus / COVID-19? No / Unsure 06/05/2021 2:01 PM ORDER TAKERS SUPERVISOR documented as of this encounter Functional Status * RETIRED Are you deaf or do you have serious difficulty hearing Answer Date of Assessment Author Status No 07/30/2020 10:48 PM ORDER TAKERS SUPERVISOR Acti ve * RETIRED Are you blind or do you have serious difficulty seeing, even when wearing glasses? Answer Date of Assessment Author Status No 07/30/2020 10:46 PM ORDER TAKERS SUPERVISOR Acti ve * Do you have [...] this encounter Medications at Time of Discharge cephALEXin (KEFLEX) 500 MG capsuleIndication s:Pyelonephritis Take 1 capsule (500 mg total) by mouth 3 (three) times daily for 10 days. 30 capsule 06/03/2021 06/13/2021 HYDROcodone-aceta minophen 5-325 MG tabletIndications :Acute Pain < 3 Day Supply Take 1-2 tablets by mouth every 6 (six) hours as needed. Indications: Acute Pain < 3 Day Supply 12 tablet 06/03/2021 09/26/2021 documented as of this encounter Plan of Treatment Upcoming Encounters Date Type Department Care Team (Late st Contact Info) Description 09/25/2024 11:30 AM ORDER TAKERS SUPERVISOR Appointment [facility] [address] [place] [address] Roberta Alex MD [address] [place] [address] 09/25/2024 11:40 AM ORDER TAKERS SUPERVISOR Office Visit [facility] [address] [place] [address] Roberta Alex MD [address] [place] [phone] documented as of this encounter Procedures Procedure Name Priority Date/Time Associated Diagnosis Comments BLOOD BANK - SPECIMEN HOLD Routine 06/05/2021 2:22 PM ORDER TAKERS SUPERVISOR Chronic ITP (idiopathic thrombocytopenia) (CMS/HCC HHS/HCC) CBC W/DIFF AUTOMATED Routine 06/05/2021 2:22 PM ORDER TAKERS SUPERVISOR Thrombocytopenia documented in this encounter Results * Blood Bank - Specimen Hold (06/05/2021 2:22 PM ORDER TAKERS SUPERVISOR) Pathologist [facility] SAMPLE LAB COLLECTED SPECIMEN 06/05/2021 2:04 PM ORDER TAKERS SUPERVISOR [facility] Blood specimen (specimen) 06/05/2021 2:22 PM ORDER TAKERS SUPERVISOR us Roberta Alex MD BLOOD BANK TEST ORDERABLES Fin al Result [facility] [address] [place] [address], * (ABNORMAL) CBC W/DIFF AUTOMATED (06/05/2021 2:22 PM ORDER TAKERS SUPERVISOR) [facility] WBC 11.2(H) 4.0 - 10.8 x10'3/uL 06/05/2021 2:44 PM ORDER TAKERS SUPERVISOR [facility] RBC 4.32 4.10 - 5.40 x10'6/uL 06/05/2021 2:44 PM ORDER TAKERS SUPERVISOR [facility] HGB 12.4 12.0 - 16.0 G/DL 06/05/2021 2:44 PM ORDER TAKERS SUPERVISOR [facility] HCT 39.3 36.0 - 47.0 % 06/05/2021 2:44 PM ORDER TAKERS SUPERVISOR [facility] MCV 91.0 78.0 - 100.0 FL 06/05/2021 2:44 PM ORDER TAKERS SUPERVISOR [facility] MCH 28.7 27.0 - 31.0 PG 06/05/2021 2:44 PM ORDER TAKERS SUPERVISOR [facility] MCHC 31.6(L) 33.0 - 36.0 G/DL 06/05/2021 2:44 PM ORDER TAKERS SUPERVISOR [facility] RDW 13.8 11.5 - 14.5 % 06/05/2021 2:44 PM ORDER TAKERS SUPERVISOR [facility] PLT 147(L) 150 - 350 x10'3/uL 06/05/2021 2:44 PM ORDER TAKERS SUPERVISOR [facility] MPV 13.8(H) 7.4 - 10.4 FL 06/05/2021 2:44 PM ORDER TAKERS SUPERVISOR [facility] DIFFERENTIAL COMMENT NORMAL REFERENCE RANGE NOT ESTABLISHED FOR THE PROPORTIONAL LEUKOCYTE DIFFERENTIAL. 06/05/2021 2:44 PM ORDER TAKERS SUPERVISOR [facility] SEG NEUTROPHILS 75.4 % 2:44 PM ORDER TAKERS SUPERVISOR [facility] LYMPHOCYTES 12.9 % 06/05/2021 2:44 PM [facility] MONOCYTES 6.2 % 06/05/2021 2:44 PM ORDER TAKERS SUPERVISOR [facility] EOSINOPHILS 4.7 % 06/05/2021 2:44 PM ORDER TAKERS SUPERVISOR [facility] BASOPHILS 0.4 % 06/05/2021 2:44 PM ORDER TAKERS SUPERVISOR [facility] IMMATURE GRANS % 0.4 % 06/05/20 2:44 PM ORDER TAKERS SUPERVISOR [facility] NRBC 0.0 % 06/05/2021 2:44 PM [facility] ABS. NEUTROPHILS 8.41(H) 1.60 - 8.30 x10'3/uL 06/05/2021 2:44 PM ORDER TAKERS SUPERVISOR [facility] ABS. LYMPHOCYTES 1.44 0.80 - 4.70 x10'3/uL 06/05/2021 2:44 PM ORDER TAKERS SUPERVISOR [facility] ABS. MONOCYTES 0.69 0.00 - 1.50 x10'3/uL 06/05/2021 2:44 PM ORDER TAKERS SUPERVISOR [facility] ABS. EOSINOPHILS 0.52(H) 0.00 - 0.40 x10'3/uL 06/05/2021 2:44 PM ORDER TAKERS SUPERVISOR [facility] ABS. BASOPHILS 0.05 0.00 - 0.20 x10'3/uL 06/05/2021 2:44 PM ORDER TAKERS SUPERVISOR [facility] ABS. IMMATURE GRANULOCYTES 0.05(H) 0.00 - 0.03 x10'3/uL 06/05/2021 2:44 PM ORDER TAKERS SUPERVISOR [facility] ABS. NUCLEATED RBC'S 0.00 0.00 x10'3/uL 06/05/2021 2:44 PM ORDER TAKERS SUPERVISOR [facility] 06/05/2021 2:22 PM ORDER TAKERS SUPERVISOR Roberta Alex MD LABORATORY Final Result [facility] [address] [place] [address], documented in this encounter Visit Diagnoses Diagnosis Thrombocytopenia (CMS/HCC) Thrombocytopenia, unspecified Chronic ITP (idiopathic thrombocytopenia) (CMS/HCC HHS/HCC) Immune thrombocytopenic purpura documented in this encounter Additional Health Concerns Infection Onset Date Last Indicated Resolved Time MRSA 06/05/2021 06/05/2021 documented as of this encounter Care Teams Automobile Body Repair Supervisor Relationship Specialty Start Date End Date Alejandro Blevins MD PCP - General FAMILY PRACTICE 12/10/19 documented as of this encounter
--- OUTSIDE RECORDS SUMMARY | 2024-07-11 05:41 | XMS_ITS | Encounter Summary ---
Author Organization [facility] Address [facility] [place] [place] [address] [place] [address] Care Team Providers Care Mechanical Adjuster Name Role Phone Alejandro Blevins MD Primary Care Provider [phone] Encounter Details Date Type Department Care Team (Late st Contact Info) Description 01/26/2022 Orders Only [address] [place] [address] Roberta Alex MD [address] [place] [address] Social History Tobacco Use Types Packs/Day Years Used Date Smoking Tobacco: Every Day Cigarettes Smokeless Tobacco: Never Alcohol Use Standard Drinks/Week Comments Not Currently 0 (1 standard drink = 0.6 oz pur e alcohol) Comments No Sex and Gender Information Value Date Recorded Sex Assigned at Not on file Legal Sex Female 11:30 PM CASH VAN SALESPERSON Gender Identity Female 11/10/2021 3:09 PM CDT Sexual Orientation Straight 11/10/2021 3: 09 PM CDT documented as of this encounter Functional Status * RETIRED Are you deaf or do you have serious difficulty hearing Answer Date of Assessment Author Status No 07/30/2020 10:48 PM CASH VAN SALESPERSON Acti ve * RETIRED Are you blind or do you have serious difficulty seeing, even when wearing glasses? Answer Date of Assessment Author Status No 07/30/2020 10:46 PM CASH VAN SALESPERSON Acti ve * Do you have serious difficulty walking or climbing stairs? Answer Date of Assessment Author Status No 07/30/2020 10:46 PM CASH VAN SALESPERSON Bringuet, Nella C, RN Active * Do [...] Progress Notes * Helena Chavira MA - 01/26/2022 10:52 AM CDT CBC documented in this encounter Plan of Treatment Upcoming Encounters Date Type Department Care Team (Late st Contact Info) Description 09/25/2024 11:30 AM CASH VAN SALESPERSON Appointment [facility] [address] [place] [address] Roberta Alex MD [address] [place] [address] 09/25/2024 11:40 AM CASH VAN SALESPERSON Office Visit [facility] [address] [place] [address] Roberta Alex MD [address] [place] [address] documented as of this encounter Results * Blood Bank - Specimen Hold (01/26/2022 12:00 PM CDT) SAMPLE LAB COLLECTED SPECIMEN 01/26/2022 11:55 AM CDT [facility] 01/26/2022 12:0 0 PM CDT Roberta Alex MD BLOOD BANK TEST ORDERABLES Fin al Result [facility] [address] [place] [address], * (ABNORMAL) CBC W/DIFF AUTOMATED (01/26/2022 12:00 PM CDT) WBC 8.4 4.0 - 10.8 x10'3/uL 01/26/2022 12:20 PM CDT [facility] RBC 4.32 4.10 - 5.40 x10'6/uL 01/26/2022 12:20 PM CDT [facility] HGB 12.7 12.0 - 16.0 G/DL 01/26/2022 12:20 PM CDT [facility] HCT 40.9 36.0 - 47.0 % 01/26/2022 12:20 PM CDT [facility] MCV 94.7 78.0 - 100.0 FL 01/26/2022 12:20 PM CDT [facility] MCH 29.4 27.0 - 31.0 PG 01/26/2022 12:20 PM CDT [facility] MCHC 31.1(L) 33.0 - 36.0 G/DL 01/26/2022 12:20 PM CDT [facility] RDW 13.2 11.5 - 14.5 % 01/26/2022 12:20 PM CDT [facility] PLT 85(L) 150 - 350 x10'3/uL 01/26/2022 12:20 PM CDT [facility] MPV 14.4(H) 7.4 - 10.4 FL 01/26/2022 12:20 PM CDT [facility] DIFFERENTIAL COMMENT NORMAL REFERENCE RANGE NOT ESTABLISHED FOR THE PROPORTIONAL LEUKOCYTE DIFFERENTIAL. 01/26/2022 12:20 PM CDT [facility] SEG NEUTROPHILS 71.5 % 12:45 PM CDT [facility] LYMPHOCYTES 17.5 % 01/26/2022 12:45 PM CDT [facility] MONOCYTES 5.8 % 01/26/2022 12:45 PM CDT [facility] EOSINOPHILS 4.1 % 01/26/2022 12:45 PM CDT [facility] BASOPHILS 0.6 % 01/26/2022 12:45 PM CDT [facility] IMMATURE GRANS % 0.5 % 01/27/20 12:45 PM CDT [facility] NRBC 0.0 % 01/26/2022 12:45 PM CDT [facility] ABS. NEUTROPHILS 6.01 1.60 - 8.30 x10'3/uL 01/26/2022 12:45 PM CDT [facility] ABS. LYMPHOCYTES 1.47 0.80 - 4.70 x10'3/uL 01/26/2022 12:45 PM CDT [facility] ABS. MONOCYTES 0.49 0.00 - 1.50 x10'3/uL 01/26/2022 12:45 PM CDT [facility] ABS. EOSINOPHILS 0.34 0.00 - 0.40 x10'3/uL 01/26/2022 12:45 PM CDT [facility] ABS. BASOPHILS 0.05 0.00 - 0.20 x10'3/uL 01/26/2022 12:45 PM CDT [facility] ABS. IMMATURE GRANULOCYTES 0.04(H) 0.00 - 0.03 x10'3/uL 01/26/2022 12:45 PM CDT [facility] ABS. NUCLEATED RBC'S 0.00 0.00 x10'3/uL 01/26/2022 12:45 PM CDT [facility] PLT MORPH. DECREASED 01/26/2022 12:45 PM CDT [facility] RBC MORPHOLOGY NORMAL 01/26/2022 12:45 PM CDT [facility] 01/26/2022 12:0 0 PM CDT us Roberta Alex MD LABORATORY Final Result [facility] [address] [place] [address], documented in this encounter Visit Diagnoses Diagnosis Thrombocytopenia (CMS/HCC)- Primary Thrombocytopenia, unspecified documented in this encounter Additional Health Concerns Infection Onset Date Last Indicated Resolved Time MRSA 06/05/2021 06/05/2021 documented as of this encounter Care Teams Mechanical Adjuster Relationship Specialty Start Date End Date Alejandro Blevins MD PCP - General FAMILY PRACTICE 12/10/19 documented as of this encounter
--- OUTSIDE RECORDS SUMMARY | 2024-07-11 05:41 | XMS_ITS | Encounter Summary ---
Author Organization [facility] Address [address] [place] [address]. [place] [address] [place] [address] Care Team Providers Care Recordak Operator Name Role Phone Alejandro Blevins MD Primary Care Provider [phone] Encounter Details Date Type Department Care Team (Latest Contact Info) Description 11/17/2021 11:30 AM CDT - 11/17/2021 11:59 PM CDT Hospital Encounter [address] [place] [address] Roberta Alex MD [address] [place] [address] Discharge Disposition: Home or Self Care (Routine Discharge) Social History Tobacco Use Types Packs/Day Years Used Date Smoking Tobacco: Every Day Cigarettes Smokeless Tobacco: Never Alcohol Use Standard Drinks/Week Comments Not Currently 0 (1 standard drink = 0.6 oz pur e alcohol) Comments No Sex and Gender Information Value Date Recorded Sex Assigned at Not on file Legal Sex Female 11:30 PM DRILL FOREMAN Gender Identity Female 11/10/2021 3:09 PM CDT [...] Assessment Author Status No 07/30/2020 10:48 PM DRILL FOREMAN Acti ve * RETIRED Are you blind or do you have serious difficulty seeing, even when wearing glasses? Answer Date of Assessment Author Status No 07/30/2020 10:46 PM DRILL FOREMAN Acti ve * Do you have serious [...] st Contact Info) Description 09/25/2024 11:30 AM DRILL FOREMAN Appointment [facility] [address] [place] [address] Roberta Alex MD [address] [place] [address] 09/25/2024 11:40 AM DRILL FOREMAN Office Visit [facility] [place] [address] Roberta Alex MD [address] [place] [address] documented as of this encounter Procedures Procedure Name Priority Date/Time Associated Diagnosis Comments IRON SAT PANEL (IRON,IBC,%SAT) Routine 11/17/2021 12:05 PM CDT Iron deficiency anemia, unspecified iron deficiency anemia type VITAMIN B-12 Routine 11/17/2021 12:05 PM CDT Iron deficiency anemia, unspecified iron deficiency anemia type CBC W/DIFF AUTOMATED Routine 11/17/2021 12:05 PM CDT Iron deficiency anemia, unspecified iron deficiency anemia type FERRITIN Routine 11/17/2021 12:05 PM CDT Iron deficiency anemia, unspecified iron deficiency anemia type documented in this encounter Results * FERRITIN (11/17/2021 12:05 PM CDT) FERRITIN 13.4 8 - 252 NG/ML 11/17/2021 12:40 PM CDT [facility] 11/17/2021 12:0 5 PM CDT us Roberta Alex MD LABORATORY Final Result Performing Organization Address City/[facility]/ZIP Co de Phone Number [facility] [address] [place] [address], * VITAMIN B-12 (11/17/2021 12:05 PM CDT) VITAMIN B12 S/P/B 332 193 - 986 PG/ML 11/18/2021 2:[address] [facility] 11/17/2021 12:0 5 PM CDT us Roberta Alex MD LABORATORY Final Result [facility] [address] [place] [address], [place] [phone] [id number] * (ABNORMAL) IRON SATURATION PNL (FE/TIBC/SAT) (11/17/2021 12:05 PM CDT) IRON 40(L) 50 - 170 MCG/DL 11/17/2021 12:39 PM CDT [facility] IRON BINDING CAPACITY 352 250 - 450 MCG/DL 11/17/2021 12:39 PM CDT [facility] IRON SATURATION 11 % 12:39 PM CDT [facility] Comment:REFERENCE RANGE NOT ESTABLISHED 11/17/2021 12:0 5 PM CDT Roberta Alex MD LABORATORY Final Result [facility] [address] [place] [address], * (ABNORMAL) CBC W/DIFF AUTOMATED (11/17/2021 12:05 PM CDT) WBC 13.5(H) 4.0 - 10.8 x10'3/uL 11/17/2021 1:03 PM CDT [facility] RBC 4.64 4.10 - 5.40 x10'6/uL 11/17/2021 1:03 PM CDT [facility] HGB 13.4 12.0 - 16.0 G/DL 11/17/2021 1:03 PM CDT [facility] HCT 42.5 36.0 - 47.0 % 11/17/2021 1:03 PM CDT [facility] MCV 91.6 78.0 - 100.0 FL 11/17/2021 1:03 PM CDT [facility] MCH 28.9 27.0 - 31.0 PG 11/17/2021 1:03 PM CDT [facility] MCHC 31.5(L) 33.0 - 36.0 G/DL 11/17/2021 1:03 PM CDT [facility] RDW 14.2 11.5 - 14.5 % 11/17/2021 1:03 PM CDT [facility] PLT 63(L) 150 - 350 x10'3/uL 11/17/2021 1:03 PM CDT [facility] MPV NOT AVAILABLE 7.4 - 10.4 FL 11/17/2021 2:41 PM CDT [facility] SEG NEUTROPHILS 81 % 1:07 PM CDT [facility] LYMPHOCYTES 11 % 11/17/2021 1:07 PM CDT [facility] MONOCYTES 5 % 11/17/2021 1:07 PM CDT [facility] EOSINOPHILS 3 % 11/17/2021 1:07 PM CDT [facility] ABS. NEUTROPHILS CALCULATED 10.92(H) 1.60 - 8.30 x10'3/uL 11/17/2021 1:07 PM CDT [facility] ABS. LYMPHOCYTES 1.49 0.80 - 4.70 x10'3/uL 11/17/2021 1:07 PM CDT [facility] ABS. MONOCYTES 0.68 0.10 - 1.50 x10'3/uL 11/17/2021 1:07 PM CDT [facility] ABS. EOSINOPHILS 0.41(H) 0.00 - 0.40 x10'3/uL 11/17/2021 1:07 PM CDT [facility] DIFFERENTIAL COMMENT NORMAL REFERENCE RANGE NOT ESTABLISHED FOR THE PROPORTIONAL LEUKOCYTE DIFFERENTIAL. 11/17/2021 1:07 PM CDT [facility] PLT MORPH. NORMAL 11/17/2021 1:07 PM CDT [facility] RBC MORPHOLOGY NORMAL 11/17/2021 1:07 PM CDT [facility] 11/17/2021 12:0 5 PM CDT Roberta Alex MD LABORATORY Final Result [facility] [address] [employer] [address] [phone] documented in this encounter Visit Diagnoses Diagnosis Iron deficiency anemia, unspecified iron deficiency anemia type documented in this encounter Additional Health Concerns Infection Onset Date Last Indicated Resolved Time MRSA 06/05/2021 06/05/2021 documented as of this encounter Care Teams Recordak Operator Relationship Specialty Start Date End Date Alejandro Blevins MD PCP - General FAMILY PRACTICE 12/10/19 documented as of this encounter
--- OUTSIDE RECORDS SUMMARY | 2024-07-11 05:41 | XMS_ITS | Encounter Summary ---
Author Organization [facility] Address [address] [place] [address]. [place], [place] [address] [place] [address] Care Team Providers Care Shift Supervisor Melting Name Role Phone Alejandro Blevins MD Primary Care Provider [phone] Reason for Visit * Reason Comments Shoulder Pain DOI 08/25/2022 RIGHT Elbow Pain DOI:09/13/2022 RIGHT MRI Results RIGHT shoulder Work Comp Encounter Details Date Type Department Care Team (Latest Contact Info) Description 10/28/2022 3:15 PM CDT Office Visit [facility] [address], [facility] [address] [place] [id number] Anthony Marley MD [address] [place] [address] Shoulder Pain (DOI 08/25/2022 RIGHT ); Elbow Pain (DOI:09/13/2022 RIGHT); MRI Results (RIGHT shoulder); Work Comp Social History Tobacco Use Types Packs/Day Years [...] on file Legal Sex Female 11:30 PM SOCIAL PROFESSIONALS Gender Identity Female 11/10/2021 3:09 PM CDT [...] - - Weight 71.7 kg (158 lb) 10/28/2022 3:44 PM CDT Height 160 cm (5' 3 ) 10/28/2022 3:44 PM CDT Body Mass Index 27.99 10/28/2022 3:44 PM CDT documented in this encounter Functional Status * RETIRED Are you deaf or do you have serious difficulty hearing Answer Date of Assessment Author Status No 07/30/2020 10:48 PM SOCIAL PROFESSIONALS Acti ve * RETIRED Are you blind or do you have serious difficulty seeing, even when wearing glasses? Answer Date of Assessment Author Status No 07/30/2020 10:46 PM SOCIAL PROFESSIONALS Acti ve * Do you have serious [...] documented in this encounter Progress Notes * Anthony Marley MD - 10/28/2022 3:15 PM CDT Chief Complaint: Shoulder Pain (DOI 08/25/2022 RIGHT ), Elbow Pain (DOI:09/13/2022 RIGHT), MRI Results (RIGHT shoulder), and Work Comp History of Present Illness: Hillary Smalls is a 32-year-old female who presents to the office for Shoulder Pain (DOI 08/25/2022 RIGHT ), Elbow Pain (DOI:09/13/2022 RIGHT), MRI Results (RIGHT shoulder), and Work Comp Patient comes in to clinic today for MRI follow up of RIGHT shoulder. She reports pain has improvedsince previous visit. Denies any pain to RIGHT shoulder and elbow. She has not started PT due to insurance issues. She states she would like to go back to work without restrictions. ROS: See HPI for pertinent positives Problem [...] anemia due to chronic blood loss 12/31/2020 No past surgical history on file. Family [...] Currently ??? Drug use: Not Currently Medications: Current Outpatient Medications: ??? fhkmhqw-dilufunswqviw-nlknyqqx (EXCEDRIN MIGRAINE) 250-250-65 MG tablet, Take 1 tablet by mouthevery 6 (six) hours as needed for Pain., Disp: , Rfl: ??? ibuprofen (MOTRIN) 200 MG tablet, Take 3 tablets (600 mg total) by mouth every 6 (six) hours asneeded for Pain., Disp: , Rfl: Allergies Allergen Reactions ??? Bee Venom Anaphylaxis ??? Iodinated Contrast Media Anaphylaxis ??? Shellfish Allergy Anaphylaxis Objective: Body mass index is 27.99 kg/m??. Last Recorded Weight 10/28/22 1544 Weight: 71.7 kg (158 lb) Physical exam: Constitutional: Alert and in no acute distress. Neurological: The patient was oriented to person, place, and time. Eyes: The sclera and conjunctiva were normal ENT: Hearing was normal. Neck: The appearance of the neck was normal. Cardiovascular: Normal pulses. Pulmonary: No respiratory distress. Skin: No injuries or skin lesion. Musculoskeletal: Right shoulder demonstrates full range of motion with excellent strength and no discomfort. She is neurovascularly intact. Negative Schmidt and negative speeds sign Results: MRI was reviewed demonstrating some supraspinatus tendinitis but other words is normal Assessment: Encounter Diagnose(s) ICD-10-CM ICD-9-CM SNOMED CT(R) 1. Tendinitis of right rotator cuff M75.81 726.10 TENDINITIS OF RIGHT ROTATOR CUFF Plan: Patient has had resolution of her symptoms. I have released her to return to work without restrictions as of October 31. No further follow-up Follow up: No follow-ups on file. ANTHONY MARLEY MD documented in this encounter Plan of Treatment Upcoming Encounters Date Type Department Care Team (Late st Contact Info) Description 09/25/2024 11:30 AM SOCIAL PROFESSIONALS Appointment [facility] [place] [address] Roberta Alex MD [address] [place] [address] 09/25/2024 11:40 AM SOCIAL PROFESSIONALS Office Visit [facility] [place] [address] Roberta Alex MD [address] [place] [address] documented as of this encounter Visit Diagnoses Diagnosis Tendinitis of right rotator cuff- Primary Disorders of bursae and tendons in shoulder region, unspecified documented in this encounter Additional Health Concerns Infection Onset Date Last Indicated Resolved Time MRSA 06/05/2021 06/05/2021 documented as of this encounter Care Teams Shift Supervisor Melting Relationship Specialty Start Date End Date Alejandro Blevins MD PCP - General FAMILY PRACTICE 12/10/19 documented as of this encounter
--- OUTSIDE RECORDS SUMMARY | 2024-07-11 05:41 | XMS_ITS | Encounter Summary ---
Author Organization [facility] Address [facility] [place] [address] [place] [address] Care Team Providers Care Custom Leather Products Maker Name Role Phone Alejandro Blevins MD Primary Care Provider [phone] Encounter Details Date Type Department Care Team (Late st Contact Info) Description 05/10/2022 Orders Only [address] [place] [address] Roberta Alex MD [address] [place] [address] Social History Tobacco Use Types Packs/Day Years Used Date Smoking Tobacco: Every Day Cigarettes Smokeless Tobacco: Never Alcohol Use Standard Drinks/Week Comments Not Currently 0 (1 standard drink = 0.6 oz pur e alcohol) Comments No Sex and Gender Information Value Date Recorded Sex Assigned at Not on file Legal Sex Female 11:30 PM NAIL MAKER Gender Identity Female 11/10/2021 3:09 PM CDT Sexual Orientation Straight 11/10/2021 3: 09 PM CDT documented as of this encounter Functional Status * RETIRED Are you deaf or do you have serious difficulty hearing Answer Date of Assessment Author Status No 07/30/2020 10:48 PM NAIL MAKER Acti ve * RETIRED Are you blind or do you have serious difficulty seeing, even when wearing glasses? Answer Date of Assessment Author Status No 07/30/2020 10:46 PM NAIL MAKER Acti ve * Do you have serious difficulty walking or climbing stairs? Answer Date of Assessment Author Status No 07/30/2020 10:46 PM NAIL MAKER Bringuet, Nella C, RN Active * Do you have difficulty dressing or bathing? Answer Date of Assessment Author Status No 07/30/2020 10:46 PM NAIL MAKER Nella Le RN Active * Because of [...] st Contact Info) Description 09/25/2024 11:30 AM NAIL MAKER Appointment [facility] [address] [place] [address] Roberta Alex MD [address] [place] [address] 09/25/2024 11:40 AM NAIL MAKER Office Visit [facility] [address] [place] [address] Roberta Alex MD [address] [place] [address] documented as of this encounter Visit Diagnoses Diagnosis Iron deficiency anemia secondary to inadequate dietary iron intake- Primary documented in this encounter Additional Health Concerns Infection Onset Date Last Indicated Resolved Time MRSA 06/05/2021 06/05/2021 documented as of this encounter Care Teams Custom Leather Products Maker Relationship Specialty Start Date End Date Alejandro Blevins MD PCP - General FAMILY PRACTICE 12/10/19 documented as of this encounter
--- OUTSIDE RECORDS SUMMARY | 2024-07-11 05:41 | XMS_ITS | Encounter Summary ---
Author Organization [facility] Address [address] [place] [address]. [place] [address] [place] [address] Care Team Providers Care Chemical Processing Technician Name Role Phone Alejandro Blevins MD Primary Care Provider [phone] Encounter Details Date Type Department Care Team (Late st Contact Info) Description 11/30/2022 Pro[facility]ust Message Enc [address] [place] [address] Roberta Alex MD [address] [place] [address] Paperwork Social History Tobacco Use Types Packs/Day Years Used Date Smoking Tobacco: Every Day Cigarettes Smokeless Tobacco: Never Alcohol Use Standard Drinks/Week Comments Not Currently 0 (1 standard drink = 0.6 oz pur e alcohol) Comments No Sex and Gender Information Value Date Recorded Sex Assigned at Not on file Legal Sex Female 11:30 PM BOOK COVERER Gender Identity Female 11/10/2021 3:09 PM CDT [...] Assessment Author Status No 07/30/2020 10:48 PM BOOK COVERER Acti ve * RETIRED Are you blind or do you have serious difficulty seeing, even when wearing glasses? Answer Date of Assessment Author Status No 07/30/2020 10:46 PM BOOK COVERER Acti ve * Do you have serious [...] documented in this encounter Progress Notes * Harshad Espitia MA - 11/30/2022 8:15 AM CDT Forwarding message about pt needing paper work filled. documented in this encounter Plan of Treatment Upcoming Encounters Date Type Department Care Team (Late st Contact Info) Description 09/25/2024 11:30 AM BOOK COVERER Appointment [facility] [address] [place] [address] Roberta Alex MD [address] [place] [id number] 09/25/2024 11:40 AM BOOK COVERER Office Visit [facility] [address] [place] [address] Roberta Alex MD [address] [place] [address] documented as of this encounter Visit Diagnoses Not on filedocumented in this encounter Additional Health Concerns Infection Onset Date Last Indicated Resolved Time MRSA 06/05/2021 06/05/2021 documented as of this encounter Care Teams Chemical Processing Technician Relationship Specialty Start Date End Date Alejandro Blevins MD PCP - General FAMILY PRACTICE 12/10/19 documented as of this encounter
--- OUTSIDE RECORDS SUMMARY | 2024-07-11 05:41 | XMS_ITS | Encounter Summary ---
Author Organization [facility] Address [address] [place] [address]. [place], [place] [address] [place] [address] Care Team Providers Care Physician Recruiter Name Role Phone Alejandro Blevins MD Primary Care Provider [phone] Encounter Details Date Type Department Care Team (Latest Contact Info) Description 12/01/2021 Travel Social History Tobacco Use Types Packs/Day Years Used Date Smoking Tobacco: Every Day Cigarettes Smokeless Tobacco: Never Alcohol Use Standard Drinks/Week Comments Not Currently 0 (1 standard drink = 0.6 oz pur e alcohol) Comments No Sex and Gender Information Value Date Recorded Sex Assigned at Not on file Legal Sex Female 11:30 PM PHOTOGRAPHIC PROCESS SCREEN MAKER Gender Identity Female 11/10/2021 3:09 PM [...] Assessment Author Status No 07/30/2020 10:48 PM PHOTOGRAPHIC PROCESS SCREEN MAKER Acti ve * RETIRED Are you blind or do you have serious difficulty seeing, even when wearing glasses? Answer Date of Assessment Author Status No 07/30/2020 10:46 PM PHOTOGRAPHIC PROCESS SCREEN MAKER Acti ve * Do you have serious difficulty walking or climbing stairs? Answer Date of Assessment Author Status No 07/30/2020 10:46 PM PHOTOGRAPHIC PROCESS SCREEN MAKER Nella Le RN Active * Do you have difficulty dressing or bathing? Answer Date of Assessment Author Status No 07/30/2020 10:46 PM PHOTOGRAPHIC PROCESS SCREEN MAKER Nella Le RN Active * Because of a physical, mental, or emotional condition, do you have difficulty doing errands alone such as visiting a doctor's office or shopping? Answer Date of Assessment Author Status No 07/30/2020 10:46 PM PHOTOGRAPHIC PROCESS SCREEN MAKER Nella Le RN Active documented as of this encounter Mental Status * Because of a physical, mental, or emotional condition, do you have serious difficulty concentrating, remembering, or making decisions? Answer Entry Date Author Status No 07/30/2020 10:46 PM PHOTOGRAPHIC PROCESS SCREEN MAKER Nella Le RN Active documented in this encounter Plan of Treatment Upcoming Encounters Date Type Department Care Team (Late st Contact Info) Description 09/25/2024 11:30 AM PHOTOGRAPHIC PROCESS SCREEN MAKER Appointment [facility] [address] [place] [address] Roberta Alex MD [address] [place] [address] [id number] 09/25/2024 11:40 AM PHOTOGRAPHIC PROCESS SCREEN MAKER Office Visit [facility] [address] [place] [address] Roberta Alex MD [address] [place] [address] documented as of this encounter Visit Diagnoses Not on filedocumented in this encounter Additional Health Concerns Infection Onset Date Last Indicated Resolved Time MRSA 06/05/2021 06/05/2021 documented as of this encounter Care Teams Physician Recruiter Relationship Specialty Start Date End Date Alejandro Blevins MD PCP - General FAMILY PRACTICE 12/10/19 documented as of this encounter
--- OUTSIDE RECORDS SUMMARY | 2024-07-11 05:41 | XMS_ITS | Encounter Summary ---
Author Organization [facility] Address [address] [place] [address]. [place] [address] [place] [address] Care Team Providers Care Vp Global Marketing [employer] Name Role Phone Alejandro Blevins MD Primary Care Provider Encounter Details Date Type Department Care Team (Late st Contact Info) Description 12/08/2022 Orders Only [address] [place] [address] Carey Pang, APNP [address] [place] [id number] Social History Tobacco Use Types Packs/Day Years Used Date Smoking Tobacco: Every Day Cigarettes Smokeless Tobacco: Never Alcohol Use Standard Drinks/Week Comments Not Currently 0 (1 standard drink = 0.6 oz pur e alcohol) Comments No Sex and Gender Information Value Date Recorded Sex Assigned at Not on file Legal Sex Female 11:30 PM PIPELINE ENGINEER Gender Identity Female 11/10/2021 3:09 PM [...] Author Status No 07/30/2020 10:48 PM PIPELINE ENGINEER Acti ve * RETIRED Are you blind or do you have serious difficulty seeing, even when wearing glasses? Answer Date of Assessment Author Status No 07/30/2020 10:46 PM PIPELINE ENGINEER Acti ve * Do you have [...] Contact Info) Description 09/25/2024 11:30 AM PIPELINE ENGINEER Appointment [facility] [address] [place] [address] Roberta Alex MD [address] [place] [address] 09/25/2024 11:40 AM PIPELINE ENGINEER Office Visit [facility] [address] [place] [address] Roberta Alex MD [address] [place] [address] documented as of this encounter Visit Diagnoses Diagnosis Thrombocytopenia (CMS/HCC)- Primary Thrombocytopenia, unspecified Iron deficiency anemia secondary to inadequate dietary iron intake documented in this encounter Additional Health Concerns Infection Onset Date Last Indicated Resolved Time MRSA 06/05/2021 06/05/2021 documented as of this encounter Care Teams Vp [employer] Relationship Specialty Start Date End Date Alejandro Blevins MD PCP - General FAMILY PRACTICE 5/18/20 documented as of this encounter
--- OUTSIDE RECORDS SUMMARY | 2024-07-11 05:42 | XMS_ITS | Encounter Summary ---
Author Organization [facility] Address [address] [place] [address]. [place], [place] [address] [place] [address] Care Team Providers Care Broom Stitcher Name Role Phone Alejandro Blevins MD Primary Care Provider [phone] Encounter Details Date Type Department Care Team (Latest Contact Info) Description 09/26/2020 Travel Social History Tobacco Use Types Packs/Day Years Used Date Smoking Tobacco: Former Smokeless Tobacco: Current Comments Yes Sex and Gender Information Value Date Recorded Sex Assigned at Not on file Legal Sex Female 11:30 PM LPN RN HOSPICE Gender Identity Female 11/10/2021 3:09 PM CDT Sexual Orientation Straight 11/10/2021 3: 09 PM CDT COVID-19 Exposure Response Date Recorded In the last month, have you been in contact with someone who was confirmed or suspected to have Coronavirus / COVID-19? No / Unsure 09/26/2020 1:05 PM LPN RN HOSPICE documented as of this encounter Functional Status * RETIRED Are you deaf or do you have serious difficulty hearing Answer Date of Assessment Author Status No 07/30/2020 10:48 PM LPN RN HOSPICE Acti ve * RETIRED Are you blind or do you have serious difficulty seeing, even when wearing glasses? Answer Date of Assessment Author Status No 07/30/2020 10:46 PM LPN RN HOSPICE Acti ve * Do you have serious difficulty walking or climbing stairs? Answer Date of Assessment Author Status No 07/30/2020 10:46 PM LPN RN HOSPICE Nella Le RN Active * Do you have difficulty dressing or bathing? Answer Date of Assessment Author Status No 07/30/2020 10:46 PM LPN RN HOSPICE Nella Le RN Active * Because of [...] st Contact Info) Description 09/25/2024 11:30 AM LPN RN HOSPICE Appointment [place] [id number] [place] [address] Roberta Alex MD [address] [place] [address] 09/25/2024 11:40 AM LPN RN HOSPICE Office Visit [facility] [place] [address] Roberta Alex MD [address] [place] [address] 258[address] documented as of this encounter Visit Diagnoses Not on filedocumented in this encounter Care Teams Broom Stitcher Relationship Specialty Start Date End Date Alejandro Blevins MD PCP - General FAMILY PRACTICE 12/10/19 documented as of this encounter
--- OUTSIDE RECORDS SUMMARY | 2024-07-11 05:42 | XMS_ITS | Encounter Summary ---
Author Organization [facility] Address [address] [place] [address]. [place] [address] [place] [address] Care Team Providers Care Breeding Technician Name Role Phone Alejandro Blevins MD Primary Care Provider [phone] Reason for Visit * Reason Comments Infusion Therapy * Treatment/Therapy Plan Authorization (Routine) - Closed Specialty Diagnoses / Procedures Referred By Contac t Referred To Contact Diagnoses Iron deficiency anemia due to chronic blood loss Procedures Roberta Wood MD [address] [place] [address] Phone: tel: fax: [facility] [place] [address] Phone: tel: Referral ID Status Reason Start Date Expiration Date Visits Re quested Visits Authorized [id number] Closed 12/31/2020 07/24/2021 1 1 Encounter Details Date Type Department Care Team (Latest Contact Info) Description 01/20/2021 1:30 PM CDT - 01/20/2021 11:59 PM CDT Hospital Encounter [facility] [place] [address] Roberta Alex MD [address] [place] [address] Infusion Therapy Discharge Disposition: Home or Self Care (Routine Discharge) Social History Tobacco Use Types Packs/Day Years Used Date Smoking Tobacco: Former Smokeless Tobacco: Current Comments Yes Sex and Gender Information Value Date Recorded Sex Assigned at Not on file Legal Sex Female 11:30 PM DIGITAL PRINTER Gender Identity Female 11/10/2021 3:09 PM CDT Sexual Orientation Straight 11/10/2021 3: 09 PM CDT COVID-19 Exposure Response Date Recorded In the last month, have you been in contact with someone who was confirmed or suspected to have Coronavirus / COVID-19? No / Unsure 01/20/2021 1:33 PM CDT documented as of this encounter Last Filed Vital Signs Vital Sign Reading Time Taken Comments Blood Pressure 100/62 01/20/2021 1:53 PM CDT Pulse 78 01/20/2021 1:53 PM CDT Temperature 36.6 ??C (97.8 ??F) 01/20/2021 1:53 PM CD T Respiratory Rate 20 01/20/2021 1:53 PM CDT Oxygen Saturation 100% 01/20/2021 1:53 PM CDT Inhaled Oxygen Concentration - - Weight 66.5 kg (146 lb 9.7 oz) 01/20/2021 1:53 P M CDT Height - - Body Mass Index 24.4 12/30/2020 4:08 PM CDT documented in this encounter Functional Status * RETIRED Are you deaf or do you have serious difficulty hearing Answer Date of Assessment Author Status No 07/30/2020 10:48 PM DIGITAL PRINTER Acti ve * RETIRED Are you blind or do you have serious difficulty seeing, even when wearing glasses? Answer Date of Assessment Author Status No 07/30/2020 10:46 PM DIGITAL PRINTER Acti ve * Do you have serious difficulty walking or climbing stairs? Answer Date of Assessment Author Status No 07/30/2020 10:46 PM DIGITAL PRINTER Nella Le RN Active * Do you have difficulty dressing or bathing? Answer Date of Assessment Author Status No 07/30/2020 10:46 PM DIGITAL PRINTER Nella Le RN Active * Because of [...] Date Author Status No 07/30/2020 10:46 PM DIGITAL PRINTER Nella Le RN Active documented in this encounter Medications at Time of Discharge Acetaminophen-Cod eine (TYLENOL/CODEINE #3) 300-30 MG tablet Take 1 tablet by mouth every 4 (four) hours as needed for Pain. 05/01/2021 clindamycin 300 MG capsule Take 300 mg by mouth daily. 05/01/2021 documented as of this encounter Progress Notes * Cecilia Healy - 01/20/2021 1:30 PM CDTEncounter addended by: Cecilia Healy on: 01/21/2021 10:43 AM Actions taken: Charge Capture section accepted * Kitty Leon RN - 01/20/2021 1:30 PM CDT PATIENT ASSESSMENT: Admitted via: Ambulatory Admitted from: Home Planned procedure: Scheduled venofer Patient information verified by KITTY LEON RN. Barriers to learning: None Patient identity confirmed - Name and date of , Allergies Verified, Family/Significant other present, teaching done/mutual goals set and understood and Patient/S.O given able to voice fears/concerns [...] st Contact Info) Description 09/25/2024 11:30 AM DIGITAL PRINTER Appointment [facility] [address] [place] [address] Roberta Alex MD [address] [place] [address] 09/25/2024 11:40 AM DIGITAL PRINTER Office Visit [facility] [address] [place] [address] Roberta Alex MD [address] [place] [address] documented as of this encounter Visit Diagnoses Diagnosis Iron deficiency anemia due to chronic blood loss- Primary Iron deficiency anemia secondary to blood loss (chronic) documented in this encounter Administered Medications Inactive Administered Medications - up to 3 most recent administrations Medication Order MAR Action Action Date Dose Rate Site iron sucrose (VENOFER) 300 mg in sodium chloride 0.9 % 250 mL IVPB 300 mg, Intravenous, at 176.7 mL/hr, Once, 1 dose, On Tue01/20/21 at 1415Indications:Iron deficiency anemia due to chronic blood loss New Bag 01/20/2021 1:58 PM CDT 300 mg 176.7 mL/hr sodium chloride 0.9% bolus infusion SOLN 250 mL 250 mL, Intravenous, Continuous, Starting on Tue01/20/21 at 1400, Until Brittni 01/22/21 at 0250, Infuse at 10 mL/hr TKO as neededIndications:Iron deficiency anemia due to chronic blood loss New Bag 01/20/2021 2:02 PM CDT 250 mLs 10 mL/hr documented in this encounter Care Teams Breeding Technician Relationship Specialty Start Date End Date Alejandro Blevins MD PCP - General FAMILY PRACTICE 12/10/19 documented as of this encounter
--- OUTSIDE RECORDS SUMMARY | 2024-07-11 05:42 | XMS_ITS | Encounter Summary ---
Author Organization [facility] Address [address] [place] [address]. [place], [place] [address] [place] [address] Care Team Providers Care Men'S [employer] Boys' Clothing Salesperson Name Role Phone Alejandro Blevins MD Primary Care Provider [phone] Encounter Details Date Type Department Care Team (Latest Contact Info) Description 05/04/2021 Travel Social History Tobacco Use Types Packs/Day Years Used Date Smoking Tobacco: Former Smokeless Tobacco: Current Comments No Sex and Gender Information Value Date Recorded Sex Assigned at Not on file Legal Sex Female 11:30 PM EMERGENCY DOCTOR Gender Identity Female 11/10/2021 3:09 PM CDT Sexual Orientation Straight 11/10/2021 3: 09 PM CDT COVID-19 Exposure Response Date Recorded In the last month, have you been in contact with someone who was confirmed or suspected to have Coronavirus / COVID-19? No / Unsure 05/04/2021 10:35 AM CDT documented as of this encounter Functional Status * RETIRED Are you deaf or do you have serious difficulty hearing Answer Date of Assessment Author Status No 07/30/2020 10:48 PM EMERGENCY DOCTOR Acti ve * RETIRED Are you blind or do you have serious difficulty seeing, even when wearing glasses? Answer Date of Assessment Author Status No 07/30/2020 10:46 PM EMERGENCY DOCTOR Acti ve * Do you have serious difficulty walking or climbing stairs? Answer Date of Assessment Author Status No 07/30/2020 10:46 PM EMERGENCY DOCTOR Nella Le RN Active * Do you have difficulty dressing or bathing? Answer Date of Assessment Author Status No 07/30/2020 10:46 PM EMERGENCY DOCTOR Nella Le RN Active * Because of [...] st Contact Info) Description 09/25/2024 11:30 AM EMERGENCY DOCTOR Appointment [place] [id number] [place] [address] Roberta Alex MD [address] [place] [address] 09/25/2024 11:40 AM EMERGENCY DOCTOR Office Visit [facility] [place] [address] Roberta Alex MD [address] [place] [address] [phone] documented as of this encounter Visit Diagnoses Not on filedocumented in this encounter Care Teams Men'S And Boys' Clothing Salesperson Relationship Specialty Start Date End Date Alejandro Blevins MD PCP - General FAMILY PRACTICE 12/10/19 documented as of this encounter
--- OUTSIDE RECORDS SUMMARY | 2024-07-11 05:42 | XMS_ITS | Encounter Summary ---
Author Organization [facility] Address [address] [place] [address]. [place], [place] [address] [place] [address] Care Team Providers Care Serials Librarian Name Role Phone Alejandro Blevins MD Primary Care Provider [phone] Encounter Details Date Type Department Care Team (Latest Contact Info) Description 02/24/2021 Travel Social History Tobacco Use Types Packs/Day Years Used Date Smoking Tobacco: Former Smokeless Tobacco: Current Comments No Sex and Gender Information Value Date Recorded Sex Assigned at Not on file Legal Sex Female 11:30 PM BUSINESS MANAGEMENT PROFESSOR Gender Identity Female 11/10/2021 3:09 PM CDT Sexual Orientation Straight 11/10/2021 3: 09 PM CDT COVID-19 Exposure Response Date Recorded In the last month, have you been in contact with someone who was confirmed or suspected to have Coronavirus / COVID-19? No / Unsure 02/24/2021 12:43 PM CDT documented as of this encounter Functional Status * RETIRED Are you deaf or do you have serious difficulty hearing Answer Date of Assessment Author Status No 07/30/2020 10:48 PM BUSINESS MANAGEMENT PROFESSOR Acti ve * RETIRED Are you blind or do you have serious difficulty seeing, even when wearing glasses? Answer Date of Assessment Author Status No 07/30/2020 10:46 PM BUSINESS MANAGEMENT PROFESSOR Acti ve * Do you have serious difficulty walking or climbing stairs? Answer Date of Assessment Author Status No 07/30/2020 10:46 PM BUSINESS MANAGEMENT PROFESSOR Nella Le RN Active * Do you have difficulty dressing or bathing? Answer Date of Assessment Author Status No 07/30/2020 10:46 PM BUSINESS MANAGEMENT PROFESSOR Nella Le RN Active * Because of [...] st Contact Info) Description 09/25/2024 11:30 AM BUSINESS MANAGEMENT PROFESSOR Appointment [place] [phone] [facility] [place] [address] Roberta Alex MD [address] [place] [address] 09/25/2024 11:40 AM BUSINESS MANAGEMENT PROFESSOR Office Visit [facility] [place] [address] Roberta Aelx MD [address] [place] [address] [phone] documented as of this encounter Visit Diagnoses Not on filedocumented in this encounter Care Teams Serials Librarian Relationship Specialty Start Date End Date Alejandro Blevins MD PCP - General FAMILY PRACTICE 12/10/19 documented as of this encounter
--- OUTSIDE RECORDS SUMMARY | 2024-07-11 05:42 | XMS_ITS | Encounter Summary ---
Author Organization [facility] Address [address] [place] [address]. [place] [address] [place] [address] Care Team Providers Care Woods Overseer Name Role Phone Alejandro Blevins MD Primary Care Provider [phone] Encounter Details Date Type Department Care Team (Latest Contact Info) Description 08/19/2020 8:37 AM PRODUCTION CONTROL MANAGER - 08/19/2020 11:59 PM PRODUCTION CONTROL MANAGER Hospital Encounter [address] [place] [address] Roberta Alex MD [address] [place] [address] Discharge Disposition: Home or Self Care (Routine Discharge) Social History Tobacco Use Types Packs/Day Years Used Date Smoking Tobacco: Former Smokeless Tobacco: Current Comments Yes Sex and Gender Information Value Date Recorded Sex Assigned at Not on file Legal Sex Female 11:30 PM PRODUCTION CONTROL MANAGER Gender Identity Female 11/10/2021 3:09 PM CDT Sexual Orientation Straight 11/10/2021 3: 09 PM CDT COVID-19 Exposure Response Date Recorded In the last month, have you been in contact with someone who was confirmed or suspected to have Coronavirus / COVID-19? No / Unsure 08/19/2020 8:37 AM PRODUCTION CONTROL MANAGER documented as of this encounter Functional Status * RETIRED Are you deaf or do you have serious difficulty hearing Answer Date of Assessment Author Status No 07/30/2020 10:48 PM PRODUCTION CONTROL MANAGER Acti ve * RETIRED Are you blind or do you have serious difficulty seeing, even when wearing glasses? Answer Date of Assessment Author Status No 07/30/2020 10:46 PM PRODUCTION CONTROL MANAGER Acti ve * Do you have [...] this encounter Medications at Time of Discharge predniSONE 10 mg tabletIndications :Chronic ITP (idiopathic thrombocytopenia) ([facility]) Take 5 tablets (50 mg total) by mouth daily for 5 days, THEN 4 tablets (40 mg total) daily for 4 days, THEN 3 tablets (30 mg total) daily for 4 days, THEN 2 tablets (20 mg total) daily for 4 days, THEN 1 tablet (10 mg total) daily for 4 days, THEN 0.5 tablets (5 mg total) daily for 7 days, THEN 0.5 tablets (5 mg total) every other day for 7 days. 70 tablet 08/12/2020 09/16/2020 Sofosbuvir-Velpat asvir 400-100 MG Tab Take 1 tablet by mouth daily. 06/17/2020 01/06/2021 documented as of this encounter Plan of Treatment Upcoming Encounters Date Type Department Care Team (Late st Contact Info) Description 09/25/2024 11:30 AM PRODUCTION CONTROL MANAGER Appointment [facility] [address] [place] [place] [address] Roberta Alex MD [address] [place] [address] 09/25/2024 11:40 AM PRODUCTION CONTROL MANAGER Office Visit [facility] [address] [place] [address] Roberta Alex MD [address] [place] [address] documented as of this encounter Visit Diagnoses Not on filedocumented in this encounter Care Teams Woods Overseer Relationship Specialty Start Date End Date Alejandro Blevins MD PCP - General FAMILY PRACTICE 12/10/19 documented as of this encounter
--- OUTSIDE RECORDS SUMMARY | 2024-07-11 05:42 | XMS_ITS | Encounter Summary ---
Author Organization [facility] Address [address] [place] [address]. [place], [place] [address] [place] [address] Care Team Providers Care Electrical Inspector Name Role Phone Alejandro Blevins MD Primary Care Provider [phone] Encounter Details Date Type Department Care Team (Latest Contact Info) Description 05/29/2021 Travel Social History Tobacco Use Types Packs/Day Years Used Date Smoking Tobacco: Former Smokeless Tobacco: Current Comments No Sex and Gender Information Value Date Recorded Sex Assigned at Not on file Legal Sex Female 11:30 PM LIBRARY SERVICES ASSISTANT Gender Identity Female 11/10/2021 3:09 PM CDT Sexual Orientation Straight 11/10/2021 3: 09 PM CDT COVID-19 Exposure Response Date Recorded In the last month, have you been in contact with someone who was confirmed or suspected to have Coronavirus / COVID-19? No / Unsure 05/29/2021 10:04 AM CDT documented as of this encounter Functional Status * RETIRED Are you deaf or do you have serious difficulty hearing Answer Date of Assessment Author Status No 07/30/2020 10:48 PM LIBRARY SERVICES ASSISTANT Acti ve * RETIRED Are you blind or do you have serious difficulty seeing, even when wearing glasses? Answer Date of Assessment Author Status No 07/30/2020 10:46 PM LIBRARY SERVICES ASSISTANT Acti ve * Do you have serious difficulty walking or climbing stairs? Answer Date of Assessment Author Status No 07/30/2020 10:46 PM LIBRARY SERVICES ASSISTANT Nella Le RN Active * Do you have difficulty dressing or bathing? Answer Date of Assessment Author Status No 07/30/2020 10:46 PM LIBRARY SERVICES ASSISTANT Nella Le RN Active * Because [...] Contact Info) Description 09/25/2024 11:30 AM LIBRARY SERVICES ASSISTANT Appointment [place] [id number] [facility] [address] Roberta Alex MD [address] [place] [address] 09/25/2024 11:40 AM LIBRARY SERVICES ASSISTANT Office Visit [facility] [place] [address] Roberta Alex MD [address] [place] [address] [phone] documented as of this encounter Visit Diagnoses Not on filedocumented in this encounter Care Teams Electrical Inspector Relationship Specialty Start Date End Date Alejandro Blevins MD PCP - General FAMILY PRACTICE 12/10/19 documented as of this encounter
--- OUTSIDE RECORDS SUMMARY | 2024-07-11 05:42 | XMS_ITS | Encounter Summary ---
Author Organization [facility] Address [facility] [facility] [place] [address] [place] [address] Care Team Providers Care Gravel Weigher Name Role Phone Alejandro Blevins MD Primary Care Provider [phone] Encounter Details Date Type Department Care Team (Latest Contact Info) Description 09/09/2020 10:35 AM BOAT BUFFER PLASTIC - 09/09/2020 11:09 AM BOAT BUFFER PLASTIC Hospital Encounter [address] [place] [address] Roberta Alex MD [address] [place] [address] Discharge Disposition: Home or Self Care (Routine Discharge) Social History Tobacco Use Types Packs/Day Years Used Date Smoking Tobacco: Former Smokeless Tobacco: Current Comments Yes Sex and Gender Information Value Date Recorded Sex Assigned at Not on file Legal Sex Female 11:30 PM BOAT BUFFER PLASTIC Gender Identity Female 11/10/2021 3:09 PM CDT Sexual Orientation Straight 11/10/2021 3: 09 PM CDT COVID-19 Exposure Response Date Recorded In the last month, have you been in contact with someone who was confirmed or suspected to have Coronavirus / COVID-19? No / Unsure 09/09/2020 11:08 AM BOAT BUFFER PLASTIC documented as of this encounter Functional Status * RETIRED Are you deaf or do you have serious difficulty hearing Answer Date of Assessment Author Status No 07/30/2020 10:48 PM BOAT BUFFER PLASTIC Acti ve * RETIRED Are you blind or do you have serious difficulty seeing, even when wearing glasses? Answer Date of Assessment Author Status No 07/30/2020 10:46 PM BOAT BUFFER PLASTIC Acti ve * Do you have serious [...] 10 mg tabletIndications :Chronic ITP (idiopathic thrombocytopenia) ([facility]) Take 5 tablets (50 mg total) by [...] st Contact Info) Description 09/25/2024 11:30 AM BOAT BUFFER PLASTIC Appointment [facility] [address] [place] [address] Roberta Alex MD [address] [place] [address] 09/25/2024 11:40 AM BOAT BUFFER PLASTIC Office Visit [facility] [place] [address] Roberta Alex MD [address] [place] [address] documented as of this encounter Procedures Procedure Name Priority Date/Time Associated Diagnosis Comments CBC W/DIFF AUTOMATED Routine 09/09/2020 11:21 AM BOAT BUFFER PLASTIC Chronic ITP (idiopathic thrombocytopenia) ([facility]/HCC [facility]/HCC) Anemia documented in this encounter Results * (ABNORMAL) CBC W/DIFF AUTOMATED (09/09/2020 11:21 AM BOAT BUFFER PLASTIC) WBC 11.1(H) 4.5 - 10.8 x10'3/uL 09/09/2020 11:38 AM [facility] RBC 3.64(L) 4.10 - 5.40 x10'6/uL 09/09/2020 11:38 AM [facility] HGB 10.0(L) 12.0 - 16.0 G/DL 09/09/2020 11:38 AM [facility] HCT 32.1(L) 36.0 - 47.0 % 09/09/2020 11:38 AM [facility] MCV 88.2 78.0 - 100.0 FL 09/09/2020 11:38 AM [facility] MCH 27.5 27.0 - 31.0 PG 09/09/2020 11:38 AM [facility] MCHC 31.2(L) 33.0 - 36.0 G/DL 09/09/2020 11:38 AM [facility] RDW 14.0 11.5 - 14.5 % 09/09/2020 11:38 AM [facility] PLT 165 150 - 350 x10'3/uL 09/09/2020 11:38 AM [facility] MPV 12.0(H) 7.4 - 10.4 FL 09/09/2020 11:38 AM [facility] DIFFERENTIAL COMMENT NORMAL REFERENCE RANGE NOT ESTABLISHED FOR THE PROPORTIONAL LEUKOCYTE DIFFERENTIAL. 09/09/2020 11:38 AM [facility] SEG NEUTROPHILS 67.2 % 11:38 AM [facility] LYMPHOCYTES 26.0 % 09/09/2020 11:38 AM [facility] MONOCYTES 4.2 % 09/09/2020 11:38 AM [facility] EOSINOPHILS 1.8 % 09/09/2020 11:38 AM [facility] BASOPHILS 0.4 % 09/09/2020 11:38 AM [facility] IMMATURE GRANS % 0.4 % 09/09/19 11:38 AM [facility] NRBC 0.0 % 09/09/2020 11:38 AM [facility] ABS. NEUTROPHILS 7.49 1.60 - 8.30 x10'3/uL 09/09/2020 11:38 AM [facility] ABS. LYMPHOCYTES 2.90 0.80 - 4.70 x10'3/uL 09/09/2020 11:38 AM [facility] ABS. MONOCYTES 0.47 0.00 - 1.50 x10'3/uL 09/09/2020 11:38 AM [facility] ABS. EOSINOPHILS 0.20 0.00 - 0.40 x10'3/uL 09/09/2020 11:38 AM [facility] ABS. BASOPHILS 0.04 0.00 - 0.20 x10'3/uL 09/09/2020 11:38 AM [facility] ABS. IMMATURE GRANULOCYTES 0.04(H) 0.00 - 0.03 x10'3/uL 09/09/2020 11:38 AM [facility] ABS. NUCLEATED RBC'S 0.00 0.00 x10'3/uL 09/09/2020 11:38 AM [facility] 09/09/2020 11:2 1 AM BOAT BUFFER PLASTIC us Roberta Alex MD LABORATORY Final Result [facility] [address] [place] [address], documented in this encounter Visit Diagnoses Diagnosis Chronic ITP (idiopathic thrombocytopenia) (CMS/HCC HHS/HCC) Immune thrombocytopenic purpura Anemia Anemia, unspecified documented in this encounter Care Teams Gravel Weigher Relationship Specialty Start Date End Date Alejandro Blevins MD PCP - General FAMILY PRACTICE 12/10/19 documented as of this encounter
--- OUTSIDE RECORDS SUMMARY | 2024-07-11 05:42 | XMS_ITS | Encounter Summary ---
Author Organization [facility] Address [facility] [facility] [place] [address] [place] [address] Care Team Providers Care Bender Machine Operator Name Role Phone Alejandro Blevins MD Primary Care Provider [phone] Encounter Details Date Type Department Care Team (Latest Contact Info) Description 09/26/2020 1:05 PM IMPORT/EXPORT SPECIALIST - 09/26/2020 11:59 PM IMPORT/EXPORT SPECIALIST Hospital Encounter [address] [place] [address] Roberta Alex MD [address] [place] [address] Discharge Disposition: Home or Self Care (Routine Discharge) Social History Tobacco Use Types Packs/Day Years Used Date Smoking Tobacco: Former Smokeless Tobacco: Current Comments Yes Sex and Gender Information Value Date Recorded Sex Assigned at Not on file Legal Sex Female 11:30 PM IMPORT/EXPORT SPECIALIST Gender Identity Female 11/10/2021 3:09 PM CDT Sexual Orientation Straight 11/10/2021 3 :09 PM CDT COVID-19 Exposure Response Date Recorded In the last month, have you been in contact with someone who was confirmed or suspected to have Coronavirus / COVID-19? No / Unsure 09/26/2020 1:05 PM IMPORT/EXPORT SPECIALIST documented as of this encounter Functional Status * RETIRED Are you deaf or do you have serious difficulty hearing Answer Date of Assessment Author Status No 07/30/2020 10:48 PM IMPORT/EXPORT SPECIALIST Acti ve * RETIRED Are you blind or do you have serious difficulty seeing, even when wearing glasses? Answer Date of Assessment Author Status No 07/30/2020 10:46 PM IMPORT/EXPORT SPECIALIST Acti ve * Do you have serious difficulty walking or climbing stairs? Answer Date of Assessment Author Status No 07/30/2020 10:46 PM IMPORT/EXPORT SPECIALIST Nella Le RN Active * Do you have difficulty dressing or bathing? Answer Date of Assessment Author Status No 07/30/2020 10:46 PM IMPORT/EXPORT SPECIALIST Nella Le RN Active * Because of a physical, mental, or emotional condition, do you have difficulty doing errands alone such as visiting a doctor's office or shopping? Answer Date of Assessment Author Status No 07/30/2020 10:46 PM IMPORT/EXPORT SPECIALIST Nella Le RN Active documented as of this encounter Mental Status * Because of a physical, mental, or emotional condition, do you have serious difficulty concentrating, remembering, or making decisions? Answer Entry Date Author Status No 07/30/2020 10:46 PM IMPORT/EXPORT SPECIALIST Nella Le RN Active documented in this encounter Medications at Time of Discharge Sofosbuvir-Velpat asvir 400-100 MG Tab Take 1 tablet by mouth daily. 06/17/2020 01/06/2021 documented as of this encounter Plan of Treatment Upcoming Encounters Date Type Department Care Team (Late st Contact Info) Description 09/25/2024 11:30 AM IMPORT/EXPORT SPECIALIST Appointment [facility] [address] [place] [address] Roberta Alex MD [address] [place] [address] 09/25/2024 11:40 AM IMPORT/EXPORT SPECIALIST Office Visit [facility] [address] [place] [address] Roberta Alex MD [address] [place] [address] documented as of this encounter Procedures Procedure Name Priority Date/Time Associated Diagnosis Comments CBC W/DIFF AUTOMATED Routine 09/26/2020 1:14 PM IMPORT/EXPORT SPECIALIST Thrombocytopenia documented in this encounter Results * (ABNORMAL) CBC W/DIFF AUTOMATED (09/26/2020 1:14 PM IMPORT/EXPORT SPECIALIST) WBC 14.3(H) 4.5 - 10.8 x10'3/uL 09/26/2020 1:33 PM [facility] RBC 4.44 4.10 - 5.40 x10'6/uL 09/26/2020 1:33 PM [facility] HGB 11.7(L) 12.0 - 16.0 G/DL 09/26/2020 1:33 PM [facility] HCT 37.9 36.0 - 47.0 % 09/26/2020 1:33 PM [facility] MCV 85.4 78.0 - 100.0 FL 09/26/2020 1:33 PM [facility] MCH 26.4(L) 27.0 - 31.0 PG 09/26/2020 1:33 PM [facility] MCHC 30.9(L) 33.0 - 36.0 G/DL 09/26/2020 1:33 PM [facility] RDW 13.7 11.5 - 14.5 % 09/26/2020 1:33 PM [facility] PLT 60(L) 150 - 350 x10'3/uL 09/26/2020 1:33 PM [facility] MPV RESULTS NOT AVAILABLE 7.4 - 10.4 FL 09/26/2020 1:33 PM [facility] DIFFERENTIAL COMMENT NORMAL REFERENCE RANGE NOT ESTABLISHED FOR THE PROPORTIONAL LEUKOCYTE DIFFERENTIAL. 09/26/2020 1:33 PM [facility] SEG NEUTROPHILS 82.2 % 1:53 PM [facility] LYMPHOCYTES 11.7 % 09/26/2020 1:53 PM [facility] MONOCYTES 4.0 % 09/26/2020 1:53 PM [facility] EOSINOPHILS 1.3 % 09/26/2020 1:53 PM [facility] BASOPHILS 0.4 % 09/26/2020 1:53 PM [facility] IMMATURE GRANS % 0.4 % 09/27/19 21 1:53 PM IMPORT/EXPORT SPECIALIST [facility] NRBC 0.0 % 09/26/2020 1:53 PM IMPORT/EXPORT SPECIALIST [facility] ABS. NEUTROPHILS 11.75(H) 1.60 - 8.30 x10'3/uL 09/26/2020 1:53 PM IMPORT/EXPORT SPECIALIST [facility] ABS. LYMPHOCYTES 1.67 0.80 - 4.70 x10'3/uL 09/26/2020 1:53 PM IMPORT/EXPORT SPECIALIST [facility] ABS. MONOCYTES 0.57 0.00 - 1.50 x10'3/uL 09/26/2020 1:53 PM IMPORT/EXPORT SPECIALIST [facility] ABS. EOSINOPHILS 0.19 0.00 - 0.40 x10'3/uL 09/26/2020 1:53 PM IMPORT/EXPORT SPECIALIST [facility] ABS. BASOPHILS 0.06 0.00 - 0.20 x10'3/uL 09/26/2020 1:53 PM IMPORT/EXPORT SPECIALIST [facility] ABS. IMMATURE GRANULOCYTES 0.06(H) 0.00 - 0.03 x10'3/uL 09/26/2020 1:53 PM IMPORT/EXPORT SPECIALIST [facility] ABS. NUCLEATED RBC'S 0.00 0.00 x10'3/uL 09/26/2020 1:53 PM IMPORT/EXPORT SPECIALIST [facility] PLT MORPH. DECREASED 09/26/2020 1:53 PM IMPORT/EXPORT SPECIALIST [facility] RBC MORPHOLOGY NORMAL 09/26/2020 1:53 PM IMPORT/EXPORT SPECIALIST [facility] 09/26/2020 1:14 PM IMPORT/EXPORT SPECIALIST us Roberta Alex MD LABORATORY Final Result [facility] [address] [place] [address], documented in this encounter Visit Diagnoses Diagnosis Thrombocytopenia (CMS/HCC) Thrombocytopenia, unspecified documented in this encounter Care Teams Bender Machine Operator Relationship Specialty Start Date End Date Alejandro Blevins MD PCP - General FAMILY PRACTICE 12/10/19 documented as of this encounter
--- OUTSIDE RECORDS SUMMARY | 2024-07-11 05:42 | XMS_ITS | Encounter Summary ---
Author Organization [facility] Address [address] [place] [address]. [place], [place] [address] [place] [address] Care Team Providers Care Political Anthropologist Name Role Phone Alejandro Blevins MD Primary Care Provider [phone] Encounter Details Date Type Department Care Team (Latest Contact Info) Description 01/27/2021 Travel Social History Tobacco Use Types Packs/Day Years Used Date Smoking Tobacco: Former Smokeless Tobacco: Current Comments Yes Sex and Gender Information Value Date Recorded Sex Assigned at Not on file Legal Sex Female 11:30 PM EXERCISE MANAGER Gender Identity Female 11/10/2021 3:09 PM CDT Sexual Orientation Straight 11/10/2021 3: 09 PM CDT COVID-19 Exposure Response Date Recorded In the last month, have you been in contact with someone who was confirmed or suspected to have Coronavirus / COVID-19? No / Unsure 01/27/2021 12:58 PM CDT documented as of this encounter Functional Status * RETIRED Are you deaf or do you have serious difficulty hearing Answer Date of Assessment Author Status No 07/30/2020 10:48 PM EXERCISE MANAGER Acti ve * RETIRED Are you blind or do you have serious difficulty seeing, even when wearing glasses? Answer Date of Assessment Author Status No 07/30/2020 10:46 PM EXERCISE MANAGER Acti ve * Do you have serious difficulty walking or climbing stairs? Answer Date of Assessment Author Status No 07/30/2020 10:46 PM EXERCISE MANAGER Nella Le RN Active * Do you have difficulty dressing or bathing? Answer Date of Assessment Author Status No 07/30/2020 10:46 PM EXERCISE MANAGER Nella Le RN Active * Because [...] st Contact Info) Description 09/25/2024 11:30 AM EXERCISE MANAGER Appointment [place] [id number] [place] [address] Roberta Alex MD [address] [place] [address] 09/25/2024 11:40 AM EXERCISE MANAGER Office Visit [facility] [place] [address] Roberta Alex MD [address] [place] [id number] documented as of this encounter Visit Diagnoses Not on filedocumented in this encounter Care Teams Political Anthropologist Relationship Specialty Start Date End Date Alejandro Blevins MD PCP - General FAMILY PRACTICE 12/10/19 documented as of this encounter
--- OUTSIDE RECORDS SUMMARY | 2024-07-11 05:42 | XMS_ITS | Encounter Summary ---
Author Organization [facility] Address [address] [place] [address]. [place] [address] [place] [address] Care Team Providers Care Roll On Man Name Role Phone Alejandro Blevins MD Primary Care Provider [phone] Reason for Visit * Reason Onset Date Comments Appointment Request 08/26/2020 Encounter Details Date Type Department Care Team (Late st Contact Info) Description 08/26/2020 Telephone [facility] [address] [place] [address] [place] [address] Socorro Kenyon RN Appointment Request Social History Tobacco Use Types Packs/Day Years Used Date Smoking Tobacco: Former Smokeless Tobacco: Current Comments Yes Sex and Gender Information Value Date Recorded Sex Assigned at Not on file Legal Sex Female 11:30 PM QUALITY CONSULTANT Gender Identity Female 11/10/2021 3:09 PM CDT Sexual Orientation Straight 11/10/2021 3: 09 PM CDT COVID-19 Exposure Response Date Recorded In the last month, have you been in contact with someone who was confirmed or suspected to have Coronavirus / COVID-19? No / Unsure 08/26/2020 9:23 AM QUALITY CONSULTANT documented as of this encounter Functional Status * RETIRED Are you deaf or do you have serious difficulty hearing Answer Date of Assessment Author Status No 07/30/2020 10:48 PM QUALITY CONSULTANT Acti ve * RETIRED Are you blind or do you have serious difficulty seeing, even when wearing glasses? Answer Date of Assessment Author Status No 07/30/2020 10:46 PM QUALITY CONSULTANT Acti ve * Do you have serious difficulty walking or climbing stairs? Answer Date of Assessment Author Status No 07/30/2020 10:46 PM QUALITY CONSULTANT Nella Le RN Active * Do you have difficulty dressing or bathing? Answer Date of Assessment Author Status No 07/30/2020 10:46 PM QUALITY CONSULTANT Nella Le RN Active * Because of a physical, mental, or emotional condition, do you have difficulty doing errands alone such as visiting a doctor's office or shopping? Answer Date of Assessment Author Status No 07/30/2020 10:46 PM QUALITY CONSULTANT Nella Le RN Active documented as of this encounter Mental Status * Because of a physical, mental, or emotional condition, do you have serious difficulty concentrating, remembering, or making decisions? Answer Entry Date Author Status No 07/30/2020 10:46 PM QUALITY CONSULTANT Nella Le RN Active documented in this encounter Plan of Treatment Upcoming Encounters Date Type Department Care Team (Late st Contact Info) Description 09/25/2024 11:30 AM QUALITY CONSULTANT Appointment [facility] [address] [place] [address] Roberta Alex MD [address] [place] [id number] 09/25/2024 11:40 AM QUALITY CONSULTANT Office Visit [facility] [place] [address] Roberta Alex MD [address] [place] [address] documented as of this encounter Visit Diagnoses Not on filedocumented in this encounter Care Teams Roll On Man Relationship Specialty Start Date End Date Alejandro Blevins MD PCP - General FAMILY PRACTICE 12/10/19 documented as of this encounter
--- OUTSIDE RECORDS SUMMARY | 2024-07-11 05:42 | XMS_ITS | Encounter Summary ---
Author Organization [facility] Address [address] [place] [address]. [place] [address] [place] [address] Care Team Providers Care Substation Operator Transforming Name Role Phone Alejandro Blevins MD Primary Care Provider [phone] Reason for Visit * Reason Comments Infusion Therapy * Treatment/Therapy Plan Authorization (Routine) - Closed Specialty Diagnoses / Procedures Referred By Contac t Referred To Contact Diagnoses Iron deficiency anemia due to chronic blood loss Procedures Roberta Wood MD [address] [place] [address] Phone: tel: fax: [facility] [place] [place] [address] Phone: tel: Referral ID Status Reason Start Date Expiration Date Visits Re quested Visits Authorized [id number] Closed 12/31/2020 07/24/2021 1 1 Encounter Details Date Type Department Care Team (Latest Contact Info) Description 01/13/2021 1:18 PM CDT - 01/13/2021 11:59 PM CDT Hospital Encounter [facility] [place] [address] Roberta Alex MD [address] [place] [address] Infusion Therapy Discharge Disposition: Home or Self Care (Routine Discharge) Social History Tobacco Use Types Packs/Day Years Used Date Smoking Tobacco: Former Smokeless Tobacco: Current Comments Yes Sex and Gender Information Value Date Recorded Sex Assigned at Not on file Legal Sex Female 11:30 PM TUFTING SUPERVISOR Gender Identity Female 11/10/2021 3:09 PM CDT Sexual Orientation Straight 11/10/2021 3: 09 PM CDT COVID-19 Exposure Response Date Recorded In the last month, have you been in contact with someone who was confirmed or suspected to have Coronavirus / COVID-19? No / Unsure 01/13/2021 1:16 PM CDT documented as of this encounter Functional Status * RETIRED Are you deaf or do you have serious difficulty hearing Answer Date of Assessment Author Status No 07/30/2020 10:48 PM TUFTING SUPERVISOR Acti ve * RETIRED Are you blind or do you have serious difficulty seeing, even when wearing glasses? Answer Date of Assessment Author Status No 07/30/2020 10:46 PM TUFTING SUPERVISOR Acti ve * Do you have serious difficulty walking or climbing stairs? Answer Date of Assessment Author Status No 07/30/2020 10:46 PM TUFTING SUPERVISOR Nella Le RN Active * Do you have difficulty dressing or bathing? Answer Date of Assessment Author Status No 07/30/2020 10:46 PM TUFTING SUPERVISOR Nella Le RN Active * Because [...] encounter Progress Notes * Cecilia Healy - 01/13/2021 1:30 PM CDTEncounter addended by: Cecilia Healy on: 01/14/2021 10:40 AM Actions taken: Charge Capture section accepted * Kitty Leon RN - 01/13/2021 1:30 PM CDT PATIENT ASSESSMENT: Admitted via: Ambulatory Admitted from: Home Planned procedure: Scheduled venofer infusion Patient information verified by KITTY LEON RN. Barriers to learning: None Patient identity confirmed - Name and date of , Allergies Verified, teaching done/mutual goalsset and understood and Patient/S.O given able to [...] st Contact Info) Description 09/25/2024 11:30 AM TUFTING SUPERVISOR Appointment [facility] [address] [place] [address] Roberta Alex MD [address] [place] [address] 09/25/2024 11:40 AM TUFTING SUPERVISOR Office Visit [facility] [address] [place] [address] [place] [address] Roberta Alex MD [address] [place] [address] documented as of this encounter Visit Diagnoses [...] at 176.7 mL/hr, Once, 1 dose, On Tue01/13/21 at 1345Indications:Iron deficiency anemia due to chronic blood loss New Bag 01/13/2021 1:39 PM CDT 300 mg 176.7 mL/hr sodium chloride 0.9% bolus infusion SOLN 250 mL 250 mL, Intravenous, Continuous, Starting on 01/13/21 at 1345, Until Brittni 01/15/21 at 0252, Infuse at 10 mL/hr TKO as neededIndications:Iron deficiency anemia due to chronic blood loss New Bag 01/13/2021 1:39 PM CDT 250 mLs 10 mL/hr documented in this encounter Care Teams Substation Operator Transforming Relationship Specialty Start Date End Date Alejandro Blevins MD PCP - General FAMILY PRACTICE 12/10/19 documented as of this encounter
--- OUTSIDE RECORDS SUMMARY | 2024-07-11 05:42 | XMS_ITS | Encounter Summary ---
Author Organization [facility] Address [address] [place] [address]. [place], [place] [address] [place] [address] Care Team Providers Care Vp Rheumatology Name Role Phone Alejandro Blevins MD Primary Care Provider [phone] Encounter Details Date Type Department Care Team (Latest Contact Info) Description 08/12/2020 Travel Social History Tobacco Use Types Packs/Day Years Used Date Smoking Tobacco: Former Smokeless Tobacco: Current Comments Yes Sex and Gender Information Value Date Recorded Sex Assigned at Not on file Legal Sex Female 11:30 PM PHYSICAL SCIENTIST Gender Identity Female 11/10/2021 3:09 PM CDT Sexual Orientation Straight 11/10/2021 3: 09 PM CDT COVID-19 Exposure Response Date Recorded In the last month, have you been in contact with someone who was confirmed or suspected to have Coronavirus / COVID-19? No / Unsure 08/12/2020 3:39 PM PHYSICAL SCIENTIST documented as of this encounter Functional Status * RETIRED Are you deaf or do you have serious difficulty hearing Answer Date of Assessment Author Status No 07/30/2020 10:48 PM PHYSICAL SCIENTIST Acti ve * RETIRED Are you blind or do you have serious difficulty seeing, even when wearing glasses? Answer Date of Assessment Author Status No 07/30/2020 10:46 PM PHYSICAL SCIENTIST Acti ve * Do you have serious difficulty walking or climbing stairs? Answer Date of Assessment Author Status No 07/30/2020 10:46 PM PHYSICAL SCIENTIST Nella Le RN Active * Do you have difficulty dressing or bathing? Answer Date of Assessment Author Status No 07/30/2020 10:46 PM PHYSICAL SCIENTIST Nella Le RN Active * Because of [...] st Contact Info) Description 09/25/2024 11:30 AM PHYSICAL SCIENTIST Appointment [place] [id number] [facility] [place] [address] Roberta Alex MD [address] [place] [address] 09/25/2024 11:40 AM PHYSICAL SCIENTIST Office Visit [facility] [place] [address] Roberta Alex MD [address] [place] [address] [id number] documented as of this encounter Visit Diagnoses Not on filedocumented in this encounter Care Teams Vp Rheumatology Relationship Specialty Start Date End Date Alejandro Blevins MD PCP - General FAMILY PRACTICE 12/10/19 documented as of this encounter
--- OUTSIDE RECORDS SUMMARY | 2024-07-11 05:42 | XMS_ITS | Encounter Summary ---
Author Organization [facility] Address [address] [place] [address]. [place], [place] [address] [place] [address] Care Team Providers Care Multicultural Services Librarian Name Role Phone Alejandro Blevins MD Primary Care Provider [phone] Encounter Details Date Type Department Care Team (Latest Contact Info) Description 01/13/2021 Travel Social History Tobacco Use Types Packs/Day Years Used Date Smoking Tobacco: Former Smokeless Tobacco: Current Comments Yes Sex and Gender Information Value Date Recorded Sex Assigned at Not on file Legal Sex Female 11:30 PM SUPERVISOR REMELT Gender Identity Female 11/10/2021 3:09 PM CDT [...] Assessment Author Status No 07/30/2020 10:48 PM SUPERVISOR REMELT Acti ve * RETIRED Are you blind or do you have serious difficulty seeing, even when wearing glasses? Answer Date of Assessment Author Status No 07/30/2020 10:46 PM SUPERVISOR REMELT Acti ve * Do you have serious difficulty walking or climbing stairs? Answer Date of Assessment Author Status No 07/30/2020 10:46 PM SUPERVISOR REMELT Nella Le RN Active * Do you have difficulty dressing or bathing? Answer Date of Assessment Author Status No 07/30/2020 10:46 PM SUPERVISOR REMELT Nella Le RN Active * Because of [...] st Contact Info) Description 09/25/2024 11:30 AM SUPERVISOR REMELT Appointment [place] [id number] [place] [address] Roberta Alex MD [address] [place] [address] 09/25/2024 11:40 AM SUPERVISOR REMELT Office Visit [facility] [place] [address] Roberta Alex MD [address] [place] [address] [id number] documented as of this encounter Visit Diagnoses Not on filedocumented in this encounter Care Teams Multicultural Services Librarian Relationship Specialty Start Date End Date Alejandro Blevins MD PCP - General FAMILY PRACTICE 12/10/19 documented as of this encounter
--- OUTSIDE RECORDS SUMMARY | 2024-07-11 05:42 | XMS_ITS | Encounter Summary ---
Author Organization [facility] Address [address] [place] [address]. [place] [address] [place] [address] Care Team Providers Care Wiring Inspector Name Role Phone Alejandro Blevins MD Primary Care Provider [phone] Encounter Details Date Type Department Care Team (Latest Contact Info) Description 04/23/2021 11:10 AM CDT - 04/23/2021 11:59 PM CDT Hospital Encounter [address] [place] [address] Roberta Alex MD [address] [place] [address] Discharge Disposition: Home or Self Care (Routine Discharge) Social History Tobacco Use Types Packs/Day Years Used Date Smoking Tobacco: Former Smokeless Tobacco: Current Comments No Sex and Gender Information Value Date Recorded Sex Assigned at Not on file Legal Sex Female 11:30 PM BRIEFCASE SEWER Gender Identity Female 11/10/2021 3:09 PM CDT Sexual Orientation Straight 11/10/2021 3: 09 PM CDT COVID-19 Exposure Response Date Recorded In the last month, have you been in contact with someone who was confirmed or suspected to have Coronavirus / COVID-19? No / Unsure 04/23/2021 1:37 PM CDT documented as of this encounter Functional Status * RETIRED Are you deaf or do you have serious difficulty hearing Answer Date of Assessment Author Status No 07/30/2020 10:48 PM BRIEFCASE SEWER Acti ve * RETIRED Are you blind or do you have serious difficulty seeing, even when wearing glasses? Answer Date of Assessment Author Status No 07/30/2020 10:46 PM BRIEFCASE SEWER Acti ve * Do you have serious [...] Take 300 mg by mouth daily. 05/01/2021 HYDROcodone-aceta minophen (NORCO) 10-325 MG tabletIndications :Acute Pain < 3 Day Supply Take 1 tablet by mouth every 6 (six) hours as needed for Pain. Indications: Acute Pain < 3 Day Supply 12 tablet 02/24/2021 05/01/2021 documented as of this encounter Plan of Treatment Upcoming Encounters Date Type Department Care Team (Late st Contact Info) Description 09/25/2024 11:30 AM BRIEFCASE SEWER Appointment [facility] [address] [place] [address] Roberta Alex MD [address] [place] [address] [id number] 09/25/2024 11:40 AM BRIEFCASE SEWER Office Visit [facility] [address] [place] [address] Roberta Alex MD [address] [place] [address] documented as of this encounter Procedures Procedure Name Priority Date/Time Associated Diagnosis Comments CBC W/DIFF AUTOMATED Routine 04/23/2021 1:49 PM CDT Thrombocytopenia documented in this encounter Results * (ABNORMAL) CBC W/DIFF AUTOMATED (04/23/2021 1:49 PM CDT) WBC 8.0 4.0 - 10.8 x10'3/uL 04/23/2021 1:56 PM CDT [facility] RBC 5.09 4.10 - 5.40 x10'6/uL 04/23/2021 1:56 PM CDT [facility] HGB 13.9 12.0 - 16.0 G/DL 04/23/2021 1:56 PM CDT [facility] HCT 45.2 36.0 - 47.0 % 04/23/2021 1:56 PM CDT [facility] MCV 88.8 78.0 - 100.0 FL 04/23/2021 1:56 PM CDT [facility] MCH 27.3 27.0 - 31.0 PG 04/23/2021 1:56 PM CDT [facility] MCHC 30.8(L) 33.0 - 36.0 G/DL 04/23/2021 1:56 PM CDT [facility] RDW 14.9(H) 11.5 - 14.5 % 04/23/2021 1:56 PM CDT [facility] PLT 49(L) 150 - 350 x10'3/uL 04/23/2021 1:56 PM CDT [facility] MPV RESULTS NOT AVAILABLE 7.4 - 10.4 FL 04/23/2021 1:56 PM CDT [facility] DIFFERENTIAL COMMENT NORMAL REFERENCE RANGE NOT ESTABLISHED FOR THE PROPORTIONAL LEUKOCYTE DIFFERENTIAL. 04/23/2021 1:56 PM CDT [facility] SEG NEUTROPHILS 69.7 % 2:37 PM CDT [facility] LYMPHOCYTES 20.7 % 04/23/2021 2:37 PM CDT [facility] MONOCYTES 4.4 % 04/23/2021 2:37 PM CDT [facility] EOSINOPHILS 4.1 % 04/23/2021 2:37 PM CDT [facility] BASOPHILS 0.9 % 04/23/2021 2:37 PM CDT [facility] IMMATURE GRANS % 0.2 % 04/23/20 2:37 PM CDT [facility] NRBC 0.0 % 04/23/2021 2:37 PM CDT [facility] ABS. NEUTROPHILS 5.58 1.60 - 8.30 x10'3/uL 04/23/2021 2:37 PM CDT [facility] ABS. LYMPHOCYTES 1.66 0.80 - 4.70 x10'3/uL 04/23/2021 2:37 PM CDT [facility] ABS. MONOCYTES 0.35 0.00 - 1.50 x10'3/uL 04/23/2021 2:37 PM CDT [facility] ABS. EOSINOPHILS 0.33 0.00 - 0.40 x10'3/uL 04/23/2021 2:37 PM CDT [facility] ABS. BASOPHILS 0.07 0.00 - 0.20 x10'3/uL 04/23/2021 2:37 PM CDT [facility] ABS. IMMATURE GRANULOCYTES 0.02 0.00 - 0.03 x10'3/uL 04/23/2021 2:37 PM CDT [facility] ABS. NUCLEATED RBC'S 0.00 0.00 x10'3/uL 04/23/2021 2:37 PM CDT [facility] PLT MORPH. DECREASED 04/23/2021 2:37 PM CDT [facility] RBC MORPHOLOGY 1+ 04/23/2021 2:37 PM CDT [facility] Comment:ANISOCYTOSIS 04/23/2021 1:49 PM CDT Roberta Alex MD LABORATORY Final Result [facility] [address] [place] [address], documented in this encounter Visit Diagnoses Diagnosis Thrombocytopenia (CMS/HCC) Thrombocytopenia, unspecified documented in this encounter Care Teams Wiring Inspector Relationship Specialty Start Date End Date Alejandro Blevins MD PCP - General FAMILY PRACTICE 12/10/19 documented as of this encounter
--- OUTSIDE RECORDS SUMMARY | 2024-07-11 05:42 | XMS_ITS | Encounter Summary ---
Author Organization [facility] Address [address] [place] [address]. [place] [address] [place] [address] Care Team Providers Care Assayer Helper Name Role Phone Alejandro Blevins MD Primary Care Provider [phone] Encounter Details Date Type Department Care Team (Late st Contact Info) Description 05/01/2021 Orders Only [address] [place] [address] Tejinder Garcia, [facility] Social History Tobacco Use Types Packs/Day Years Used Date Smoking Tobacco: Former Smokeless Tobacco: Current Comments No Sex and Gender Information Value Date Recorded Sex Assigned at Not on file Legal Sex Female 11:30 PM ROLLER PNEUMATIC Gender Identity Female 11/10/2021 3:09 PM CDT [...] Assessment Author Status No 07/30/2020 10:48 PM ROLLER PNEUMATIC Acti ve * RETIRED Are you blind or do you have serious difficulty seeing, even when wearing glasses? Answer Date of Assessment Author Status No 07/30/2020 10:46 PM ROLLER PNEUMATIC Acti ve * Do you have serious difficulty walking or climbing stairs? Answer Date of Assessment Author Status No 07/30/2020 10:46 PM ROLLER PNEUMATIC Nella Le RN Active * Do you have difficulty dressing or bathing? Answer Date of Assessment Author Status No 07/30/2020 10:46 PM ROLLER PNEUMATIC Nella Le RN Active * Because of [...] st Contact Info) Description 09/25/2024 11:30 AM ROLLER PNEUMATIC Appointment [facility] [address] [place] [address] Roberta Alex MD [address] [place] [address] 09/25/2024 11:40 AM ROLLER PNEUMATIC Office Visit [facility] [address] [place] [address] Roberta Alex MD [address] [place] [address] documented as of this encounter Results * (ABNORMAL) CBC W/DIFF AUTOMATED (05/01/2021 1:59 PM CDT) WBC 7.4 4.0 - 10.8 x10'3/uL 05/01/2021 2:24 PM CDT [facility] RBC 5.02 4.10 - 5.40 x10'6/uL 05/01/2021 2:24 PM CDT [facility] HGB 13.8 12.0 - 16.0 G/DL 05/01/2021 2:24 PM CDT [facility] HCT 44.1 36.0 - 47.0 % 05/01/2021 2:24 PM CDT [facility] MCV 87.8 78.0 - 100.0 FL 05/01/2021 2:24 PM CDT [facility] MCH 27.5 27.0 - 31.0 PG 05/01/2021 2:24 PM CDT [facility] MCHC 31.3(L) 33.0 - 36.0 G/DL 05/01/2021 2:24 PM CDT [facility] RDW 14.2 11.5 - 14.5 % 05/01/2021 2:24 PM CDT [facility] PLT 25(LL) 150 - 350 x10'3/uL 05/01/2021 2:24 PM CDT [facility] Comment: CRITICAL VALUE CALLED TO GISELLA AT 1423 READ BACK AND VERIFIED RESULT CHECKED MPV RESULTS NOT AVAILABLE 7.4 - 10.4 FL 05/01/2021 2:24 PM CDT [facility] DIFFERENTIAL COMMENT NORMAL REFERENCE RANGE NOT ESTABLISHED FOR THE PROPORTIONAL LEUKOCYTE DIFFERENTIAL. 05/01/2021 2:24 PM CDT [facility] SEG NEUTROPHILS 69.4 % 2:57 PM CDT [facility] LYMPHOCYTES 20.0 % 05/01/2021 2:57 PM CDT [facility] MONOCYTES 5.3 % 05/01/2021 2:57 PM CDT [facility] EOSINOPHILS 4.2 % 05/01/2021 2:57 PM CDT [facility] BASOPHILS 1.0 % 05/01/2021 2:57 PM CDT [facility] IMMATURE GRANS % 0.1 % 05/01/20 2:57 PM CDT [facility] NRBC 0.0 % 05/01/2021 2:57 PM CDT [facility] ABS. NEUTROPHILS 5.14 1.60 - 8.30 x10'3/uL 05/01/2021 2:57 PM CDT [facility] ABS. LYMPHOCYTES 1.48 0.80 - 4.70 x10'3/uL 05/01/2021 2:57 PM CDT [facility] ABS. MONOCYTES 0.39 0.00 - 1.50 x10'3/uL 05/01/2021 2:57 PM CDT [facility] ABS. EOSINOPHILS 0.31 0.00 - 0.40 x10'3/uL 05/01/2021 2:57 PM CDT [facility] ABS. BASOPHILS 0.07 0.00 - 0.20 x10'3/uL 05/01/2021 2:57 PM CDT [facility] ABS. IMMATURE GRANULOCYTES 0.01 0.00 - 0.03 x10'3/uL 05/01/2021 2:57 PM CDT [facility] ABS. NUCLEATED RBC'S 0.00 0.00 x10'3/uL 05/01/2021 2:57 PM CDT [facility] PLT MORPH. DECREASED 05/01/2021 2:57 PM CDT [facility] RBC MORPHOLOGY 1+ 05/01/2021 2:57 PM CDT [facility] Comment:ANISOCYTOSIS 05/01/2021 1:59 PM CDT Roberta Alex MD LABORATORY Final Result [facility] [address] [place] [address], documented in this encounter Visit Diagnoses Diagnosis Chronic ITP (idiopathic thrombocytopenia) ([facility])- Primary Immune thrombocytopenic purpura documented in this encounter Care Teams Assayer Helper Relationship Specialty Start Date End Date Alejandro Blevins MD PCP - General FAMILY PRACTICE 12/10/19 documented as of this encounter
--- OUTSIDE RECORDS SUMMARY | 2024-07-11 05:42 | XMS_ITS | Encounter Summary ---
Author Organization [facility] Address [address] [place] [address]. [place], [place] [id number] [place] [address] Care Team Providers Care Flavorings Compounder Name Role Phone Alejandro Blevins MD Primary Care Provider [phone] Reason for Referral * (Routine) - Closed Specialty Diagnoses / Procedures Referred By Scarlet t Referred To Contact Procedures NERVE BLOCK Silas Mcneil DO [address] [place] [address] Phone: tel: fax: Referral ID Status Reason Start Date Expiration Date Visits Re quested Visits Authorized [id number] Closed 02/24/2021 03/27/2022 1 1 Reason for Visit * Reason Comments Dental Problem Encounter Details Date Type Department Care Team (Late st Contact Info) Description 02/24/2021 12:38 PM CDT - 02/24/2021 2:09 PM CDT Emergency [facility] [place] [address] Silas Mcneil DO [address] [place] [address] Dental Problem Discharge Disposition: Home or Self Care (Routine Discharge) Social History Tobacco Use Types Packs/Day Years Used Date Smoking Tobacco: Former Smokeless Tobacco: Current Comments No Sex and Gender Information Value Date Recorded Sex Assigned at Not on file Legal Sex Female 11:30 PM INTERNATIONAL MARKETING INTERN Gender Identity Female 11/10/2021 3:09 PM [...] Sign Reading Time Taken Comments Blood Pressure 104/69 02/24/2021 2:00 PM CDT Pulse 77 02/24/2021 12:48 PM CDT Temperature 36.4 ??C (97.5 ??F) 02/24/2021 12:48 PM C DT Respiratory Rate 18 02/24/2021 12:48 PM CDT Oxygen Saturation 100% 02/24/2021 2:00 PM CDT Inhaled Oxygen Concentration - - Weight 66.2 kg (146 lb) 02/24/2021 12:48 PM CDT Height 160 cm (5' 3 ) 02/24/2021 12:48 PM CDT Body Mass Index 25.86 02/24/2021 12:48 PM CDT documented in this encounter Functional Status * RETIRED Are you deaf or do you have serious difficulty hearing Answer Date of Assessment Author Status No 07/30/2020 10:48 PM INTERNATIONAL MARKETING INTERN Acti ve * RETIRED Are you blind or do you have serious difficulty seeing, even when wearing glasses? Answer Date of Assessment Author Status No 07/30/2020 10:46 PM INTERNATIONAL MARKETING INTERN Acti ve * Do you have [...] documented in this encounter Discharge Instructions * Attachments The following attachments cannot be sent through Care Everywhere. * Dental Pain (Egyptian) * Tooth Decay Discharge Instructions, Adult (Egyptian) * Dental Pain ED (Egyptian) documented in this encounter Medications at Time of Discharge Acetaminophen-Cod eine (TYLENOL/CODEINE #3) 300-30 MG tablet Take 1 tablet by mouth every 4 (four) hours as needed for Pain. 05/01/2021 clindamycin 300 MG capsule Take 1 capsule (300 mg total) by mouth 3 (three) times daily for 10 days. 30 capsule 02/24/2021 03/06/2021 clindamycin 300 MG capsule Take 300 mg by mouth daily. 05/01/2021 HYDROcodone-aceta minophen (NORCO) 10-325 MG tabletIndications :Acute Pain < 3 Day Supply Take 1 tablet by mouth every 6 (six) hours as needed for Pain. Indications: Acute Pain < 3 Day Supply 12 tablet 02/24/2021 05/01/2021 documented as of this encounter ED Notes * Catherine Monk RN - 02/24/2021 2:08 PM CDT [facility] of distress * Silas Mcneil DO - 02/24/2021 1:43 PM CDTAssociated Order(s): Nerve Block Chief Complaint Chief Complaint Patient presents with ??? Dental Problem History of Present Illness Patient is a tooth ache left inferior lower molar. Teeth are necrotic. Patient has a multiple necrotic teeth. Currently the one on the left side of her jaw is giving her the most problem. Nothing makes it better nothing makes it worse. Medical History ALLERGIES: Allergies Allergen Reactions ??? Bee Venom Anaphylaxis ??? Shellfish Allergy Anaphylaxis MEDICATIONS: Prior to Admission medications Medication Sig Start Date End Date Taking? Authorizing Provider clindamycin 300 MG capsule Take 1 capsule (300 mg total) by mouth 3 (three) times daily for 10 days. 02/24/21 03/06/21 Yes Silas J Mcneil, DO HYDROcodone-acetaminophen (NORCO) 10-325 MG tablet Take 1 tablet by mouth every 6 (six) hours as needed for Pain. Indications: Acute Pain < 3 Day Supply 02/24/21 Yes Silas Amee Mcneil, DO Acetaminophen-Codeine (TYLENOL/CODEINE #3) 300-30 MG tablet Take 1 tablet by mouth every 4 (four) hours as needed for Pain. Doc Abstract clindamycin 300 MG capsule Take 300 mg by mouth daily. Doc Abstract PAST MEDICAL HISTORY: Past Medical History: Diagnosis Date ??? Acute ITP (CMS/HCC) ??? Anemia ??? History of blood transfusion ??? Iron deficiency anemia due to chronic blood loss 12/31/2020 PAST SURGICAL HISTORY: No past surgical history on file. FAMILY HISTORY: No family history on file. SOCIAL HISTORY: Social History Tobacco Use ??? Smoking status: Former Smoker ??? Smokeless tobacco: Current User Substance Use Topics ??? Alcohol use: Not on file ??? Drug use: Not on file Review of Systems Review of Systems Constitutional: Negative. HENT: Positive for dental problem. Eyes: Negative. Respiratory: Negative. Cardiovascular: Negative. Gastrointestinal: Negative. Genitourinary: Negative. Musculoskeletal: Negative. Skin: Negative. Neurological: Negative. Hematological: Negative. Psychiatric/Behavioral: Negative. Physical Exam Filed Vitals: 02/24/21 1245 02/24/21 1248 BP: 103/64 103/64 Pulse: 77 Resp: 18 Temp: 97.5 ??F (36.4 ??C) SpO2: 99% 98% Weight: 66.2 kg (146 lb) Height: 5' 3 (1.6 m) Physical Exam Vitals and nursing note reviewed. HENT: Head: Normocephalic. Nose: Nose normal. Mouth/Throat: Mouth: Mucous membranes are moist. Comments: Patient has necrotic inferior teeth particularly on the left there is 1 most of surrounding edema erythema and tenderness consistent with a caries with a small abscess Eyes: Extraocular Movements: Extraocular movements intact. Pupils: Pupils are equal, round, and reactive to light. Cardiovascular: Rate and Rhythm: Normal rate and regular rhythm. Pulmonary: Effort: Pulmonary effort is normal. Breath sounds: Normal breath sounds. Abdominal: General: Abdomen is flat. Palpations: Abdomen is soft. Musculoskeletal: General: Normal range of motion. Skin: General: Skin is warm. Neurological: General: No focal deficit present. Mental Status: She is alert and oriented to person, place, and time. Diagnostic Studies / Procedures ELECTROCARDIOGRAMS: No results found for this visit on 02/24/21. LABORATORY STUDIES: No results found for this visit on 02/24/21. IMAGING STUDIES No orders to display Nerve Block Date/Time: 02/24/2021 1:49 PM Performed by: Silas Mcneil DO Authorized by: Silas Mcneil DO Consent: Consent obtained: Verbal Consent given by: Patient Risks discussed: Infection and nerve damage Indications: Indications: Pain relief Location: Body area: Head Laterality: Left Procedure details (see MAR for exact dosages): Anesthetic injected: Bupivacaine 0.5% WITH epi Steroid injected: None Additive injected: None Post-procedure details: Dressing: None ED Course / Medical Decision Making Clinical Impression Dental caries (Primary) Disposition: Discharge Silas Mcneil DO 02/25/21 0708 * Catherine Monk RN - 02/24/2021 12:46 PM CDT I broke a tooth when I was It didn't bother me until two days ago now it hurts really bad and it even feels like it hurts in my jaw it is my left upper tooth documented in this encounter Plan of Treatment Upcoming Encounters Date Type Department Care Team (Late st Contact Info) Description 09/25/2024 11:30 AM INTERNATIONAL MARKETING INTERN Appointment [facility] [address] [place] [address] Roberta Alex MD [address] [place] [address] 09/25/2024 11:40 AM INTERNATIONAL MARKETING INTERN Office Visit [facility] [address] [place] [address] Roberta Alex MD [address] [place] [address] [phone] (work) documented as of this encounter Procedures Procedure Name Priority Date/Time Associated Diagnosis Comments NERVE BLOCK Routine 02/24/2021 1:43 PM CDT documented in this encounter Results * Nerve Block (02/24/2021 1:43 PM CDT) Narrative Silas Mcneil DO - 02/24/2021 1:43 PM CDT Silas Mcneil, DO ? 02/25/2021 ??7:08 AM Nerve Block Date/Time: 02/24/2021 1:49 PM Performed by: Silas Mcneil DO Authorized by: Silas Mcneil DO Consent: ??Consent obtained: ??Verbal ??Consent given by: ??Patient ??Risks discussed: ??Infection and nerve damage Indications: ??Indications: ??Pain relief Location: ??Body area: ??Head ??Laterality: ??Left Procedure details (see MAR for exact dosages): ??Anesthetic injected: ??Bupivacaine 0.5% WITH epi ??Steroid injected: ??None ??Additive injected: ??None Post-procedure details: ??Dressing: ??None Silas Mcneil DO PROCEDURE/MINOR SURGICAL ORDE RABLES Final Result documented in this encounter Visit Diagnoses Diagnosis Dental caries- Primary Unspecified dental caries documented in this encounter Administered Medications Inactive Administered Medications - up to 3 most recent administrations Medication Order MAR Action Action Date Dose Rate Site BUpivacaine (PF) (MARCAINE) 0.5 % injection 30 mL 30 mL, Dental, Once, 1 dose, On Tue02/24/21 at 1330 Given 02/24/2021 1:42 PM CDT 30 mLs documented in this encounter Active and Recently Administered Medications Times are shown in CDT. Scheduled Medication Order 02/22/2021 02/23/2021 02/24/2021 BUpivacaine (PF) (MARCAINE) 0.5 % injection 30 mL (COMPLETED) 30 mL, Dental, Once, 1 dose, On Tue02/24/21 at 1330 1342 (Given - Provid er: Catherine Monk RN) documented in this encounter Care Teams Flavorings Compounder Relationship Specialty Start Date End Date Alejandro Blevins MD PCP - General FAMILY PRACTICE 12/10/19 documented as of this encounter
--- OUTSIDE RECORDS SUMMARY | 2024-07-11 05:42 | XMS_ITS | Encounter Summary ---
Author Organization [facility] Address [address] [place] [address]. [place] [address] [place] [address] Care Team Providers Care Watch Adjuster Name Role Phone Alejandro Blevins MD Primary Care Provider [phone] Encounter Details Date Type Department Care Team (Latest Contact Info) Description 05/04/2021 8:00 AM CDT - 05/04/2021 11:59 PM CDT Hospital Encounter [address] [place] [address] Roberta Alex MD [address] [place] [address] Discharge Disposition: Home or Self Care (Routine Discharge) Social History Tobacco Use Types Packs/Day Years Used Date Smoking Tobacco: Former Smokeless Tobacco: Current Comments No Sex and Gender Information Value Date Recorded Sex Assigned at Not on file Legal Sex Female 11:30 PM URGENT CARE TECHNICIAN Gender Identity Female 11/10/2021 3:09 PM [...] Assessment Author Status No 07/30/2020 10:48 PM URGENT CARE TECHNICIAN Acti ve * RETIRED Are you blind or do you have serious difficulty seeing, even when wearing glasses? Answer Date of Assessment Author Status No 07/30/2020 10:46 PM URGENT CARE TECHNICIAN Acti ve * Do you have [...] st Contact Info) Description 09/25/2024 11:30 AM URGENT CARE TECHNICIAN Appointment [facility] [address] [facility] [place] [address] Roberta Alex MD [address] [place] [address] 09/25/2024 11:40 AM URGENT CARE TECHNICIAN Office Visit [facility] [address] [place] [address] Roberta Alex MD [address] [place] [address] documented as of this encounter Procedures Procedure Name Priority Date/Time Associated Diagnosis Comments BLOOD BANK - SPECIMEN HOLD Routine 05/04/2021 11:10 AM CDT Chronic ITP (idiopathic thrombocytopenia) ([facility]/HCC [facility]/HCC) CBC W/DIFF AUTOMATED Routine 05/04/2021 11:10 AM CDT Thrombocytopenia documented in this encounter Results * Blood Bank - Specimen Hold (05/04/2021 11:10 AM CDT) SAMPLE LAB COLLECTED SPECIMEN 05/04/2021 10:36 AM CDT [facility] Blood specimen (specimen) 05/04/2021 11:10 AM CDT us Roberta Alex MD BLOOD BANK TEST ORDERABLES Fin al Result [facility] [address] [place] [address], * (ABNORMAL) CBC W/DIFF AUTOMATED (05/04/2021 11:10 AM CDT) [facility] WBC 6.3 4.0 - 10.8 x10'3/uL 05/04/2021 11:54 AM CDT [facility] RBC 4.92 4.10 - 5.40 x10'6/uL 05/04/2021 11:54 AM CDT [facility] HGB 13.6 12.0 - 16.0 G/DL 05/04/2021 11:54 AM CDT [facility] HCT 44.4 36.0 - 47.0 % 05/04/2021 11:54 AM CDT [facility] MCV 90.2 78.0 - 100.0 FL 05/04/2021 11:54 AM CDT [facility] MCH 27.6 27.0 - 31.0 PG 05/04/2021 11:54 AM CDT [facility] MCHC 30.6(L) 33.0 - 36.0 G/DL 05/04/2021 11:54 AM CDT [facility] RDW 13.7 11.5 - 14.5 % 05/04/2021 11:54 AM CDT [facility] PLT 36(L) 150 - 350 x10'3/uL 05/04/2021 11:54 AM CDT [facility] MPV RESULTS NOT AVAILABLE 7.4 - 10.4 FL 05/04/2021 11:54 AM CDT [facility] DIFFERENTIAL COMMENT NORMAL REFERENCE RANGE NOT ESTABLISHED FOR THE PROPORTIONAL LEUKOCYTE DIFFERENTIAL. 05/04/2021 11:54 AM CDT [facility] SEG NEUTROPHILS 61.5 % 12:32 PM CDT [facility] LYMPHOCYTES 25.9 % 05/04/2021 12:32 PM CDT [facility] MONOCYTES 5.7 % 05/04/2021 12:32 PM CDT [facility] EOSINOPHILS 5.7 % 05/04/2021 12:32 PM CDT [facility] BASOPHILS 0.9 % 05/04/2021 12:32 PM CDT [facility] IMMATURE GRANS % 0.3 % 05/04/20 12:32 PM CDT [facility] NRBC 0.0 % 05/04/2021 12:32 PM CDT [facility] ABS. NEUTROPHILS 3.87 1.60 - 8.30 x10'3/uL 05/04/2021 12:32 PM CDT [facility] ABS. LYMPHOCYTES 1.63 0.80 - 4.70 x10'3/uL 05/04/2021 12:32 PM CDT [facility] ABS. MONOCYTES 0.36 0.00 - 1.50 x10'3/uL 05/04/2021 12:32 PM CDT [facility] ABS. EOSINOPHILS 0.36 0.00 - 0.40 x10'3/uL 05/04/2021 12:32 PM CDT [facility] ABS. BASOPHILS 0.06 0.00 - 0.20 x10'3/uL 05/04/2021 12:32 PM CDT [facility] ABS. IMMATURE GRANULOCYTES 0.02 0.00 - 0.03 x10'3/uL 05/04/2021 12:32 PM CDT [facility] ABS. NUCLEATED RBC'S 0.00 0.00 x10'3/uL 05/04/2021 12:32 PM CDT [facility] PLT MORPH. DECREASED 05/04/2021 12:32 PM CDT [facility] RBC MORPHOLOGY NORMAL 05/04/2021 12:32 PM CDT [facility] 05/04/2021 11:1 0 AM CDT Roberta Alex MD LABORATORY Final Result [facility] [address] [place] [address], documented in this encounter Visit Diagnoses Diagnosis Thrombocytopenia ([facility]/HCC) Thrombocytopenia, unspecified Chronic ITP (idiopathic thrombocytopenia) ([facility]/HCC [facility]/HCC) Immune thrombocytopenic purpura documented in this encounter Care Teams Watch Adjuster Relationship Specialty Start Date End Date Alejandro Blevins MD PCP - General FAMILY PRACTICE 12/10/19 documented as of this encounter
--- OUTSIDE RECORDS SUMMARY | 2024-07-11 05:42 | XMS_ITS | Encounter Summary ---
Author Organization [facility] Address [address] [place] [address]. [place], [place] [address] [place] [address] Care Team Providers Care Steam Drier Operator Name Role Phone Alejandro Blevins MD Primary Care Provider [phone] Encounter Details Date Type Department Care Team (Latest Contact Info) Description 05/15/2021 Travel Social History Tobacco Use Types Packs/Day Years Used Date Smoking Tobacco: Former Smokeless Tobacco: Current Comments No Sex and Gender Information Value Date Recorded Sex Assigned at Not on file Legal Sex Female 11:30 PM STONE BREAKER Gender Identity Female 11/10/2021 3:09 PM CDT Sexual Orientation Straight 11/10/2021 3: 09 PM CDT COVID-19 Exposure Response Date Recorded In the last month, have you been in contact with someone who was confirmed or suspected to have Coronavirus / COVID-19? No / Unsure 05/15/2021 10:49 AM CDT documented as of this encounter Functional Status * RETIRED Are you deaf or do you have serious difficulty hearing Answer Date of Assessment Author Status No 07/30/2020 10:48 PM STONE BREAKER Acti ve * RETIRED Are you blind or do you have serious difficulty seeing, even when wearing glasses? Answer Date of Assessment Author Status No 07/30/2020 10:46 PM STONE BREAKER Acti ve * Do you have serious difficulty walking or climbing stairs? Answer Date of Assessment Author Status No 07/30/2020 10:46 PM STONE BREAKER Nella Le RN Active * Do you [...] st Contact Info) Description 09/25/2024 11:30 AM STONE BREAKER Appointment [place] [id number] [facility] [address] Roberta Alex MD [address] [place] [address] 09/25/2024 11:40 AM STONE BREAKER Office Visit [facility] [place] [address] Roberta Alex MD [address] [place] [id number] documented as of this encounter Visit Diagnoses Not on filedocumented in this encounter Care Teams Steam Drier Operator Relationship Specialty Start Date End Date Alejandro Blevins MD PCP - General FAMILY PRACTICE 12/10/19 documented as of this encounter
--- OUTSIDE RECORDS SUMMARY | 2024-07-11 05:42 | XMS_ITS | Encounter Summary ---
Author Organization [facility] Address [address] [place] [address]. [place] [address] [place] [address] Care Team Providers Care Station Air Traffic Control Specialist Name Role Phone Alejandro Blevins MD Primary Care Provider [phone] Encounter Details Date Type Department Care Team (Late st Contact Info) Description 08/04/2020 Hospital Follow-up Call [facility] [address] [place] [address] Chen Trimble RN Social History Tobacco Use Types Packs/Day Years Used Date Smoking Tobacco: Former Smokeless Tobacco: Current Comments Yes Sex and Gender Information Value Date Recorded Sex Assigned at Not on file Legal Sex Female 11:30 PM SPREADING MACHINE OPERATOR Gender Identity Female 11/10/2021 3:09 PM CDT Sexual Orientation Straight 11/10/2021 3: 09 PM CDT COVID-19 Exposure Response Date Recorded In the last month, have you been in contact with someone who was confirmed or suspected to have Coronavirus / COVID-19? No / Unsure 08/07/2020 8:30 AM SPREADING MACHINE OPERATOR documented as of this encounter Functional Status * RETIRED Are you deaf or do you have serious difficulty hearing Answer Date of Assessment Author Status No 07/30/2020 10:48 PM SPREADING MACHINE OPERATOR Acti ve * RETIRED Are you blind or do you have serious difficulty seeing, even when wearing glasses? Answer Date of Assessment Author Status No 07/30/2020 10:46 PM SPREADING MACHINE OPERATOR Acti ve * Do you have serious difficulty walking or climbing stairs? Answer Date of Assessment Author Status No 07/30/2020 10:46 PM SPREADING MACHINE OPERATOR Nella Le RN Active * [...] st Contact Info) Description 09/25/2024 11:30 AM SPREADING MACHINE OPERATOR Appointment [facility] [address] [place] [address] Roberta Alex MD [address] [place] [address] 09/25/2024 11:40 AM SPREADING MACHINE OPERATOR Office Visit [facility] [address] [place] [address] Roberta Alex MD [address] [place] [id number] documented as of this encounter Visit Diagnoses Not on filedocumented in this encounter Additional Health Concerns Infection Onset Date Last Indicated Resolved Time 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
--- OUTSIDE RECORDS SUMMARY | 2024-07-11 05:42 | XMS_ITS | Encounter Summary ---
Author Organization [facility] Address [address] [place] [address]. [place] [address] [place] [address] Care Team Providers Care Cardiovascular Sonographer Name Role Phone Alejandro Blevins MD Primary Care Provider [phone] Encounter Details Date Type Department Care Team (Latest Contact Info) Description 10/08/2020 8:35 AM CDT - 10/08/2020 11:59 PM CDT Hospital Encounter [address] [place] [address] Roberta Alex MD [address] [place] [address] Discharge Disposition: Home or Self Care (Routine Discharge) Social History Tobacco Use Types Packs/Day Years Used Date Smoking Tobacco: Former Smokeless Tobacco: Current Comments Yes Sex and Gender Information Value Date Recorded Sex Assigned at Not on file Legal Sex Female 11:30 PM FLOOR MOLDER Gender Identity Female 11/10/2021 3:09 PM CDT Sexual Orientation Straight 11/10/2021 3 :09 PM CDT COVID-19 Exposure Response Date Recorded In the last month, have you been in contact with someone who was confirmed or suspected to have Coronavirus / COVID-19? No / Unsure 10/08/2020 8:35 AM CDT documented as of this encounter Functional Status * RETIRED Are you deaf or do you have serious difficulty hearing Answer Date of Assessment Author Status No 07/30/2020 10:48 PM FLOOR MOLDER Acti ve * RETIRED Are you blind or do you have serious difficulty seeing, even when wearing glasses? Answer Date of Assessment Author Status No 07/30/2020 10:46 PM FLOOR MOLDER Acti ve * Do you have serious [...] st Contact Info) Description 09/25/2024 11:30 AM FLOOR MOLDER Appointment [facility] [address] [place] [address] Roberta Alex MD [address] [place] [address] 09/25/2024 11:40 AM FLOOR MOLDER Office Visit [facility] [address] [place] [address] Roberta Alex MD [address] [place] [address] documented as of this encounter Procedures Procedure Name Priority Date/Time Associated Diagnosis Comments CBC W/DIFF AUTOMATED Routine 10/08/2020 8:59 AM CDT Thrombocytopenia documented in this encounter Results * (ABNORMAL) CBC W/DIFF AUTOMATED (10/08/2020 8:59 AM CDT) WBC 8.9 4.5 - 10.8 x10'3/uL 10/08/2020 9:[address] [facility] RBC 4.05(L) 4.10 - 5.40 x10'6/uL 10/08/2020 9:[address] [facility] HGB 10.2(L) 12.0 - 16.0 G/DL 10/08/2020 9:[address] [facility] HCT 33.7(L) 36.0 - 47.0 % 10/08/2020 9:[address] [facility] MCV 83.2 78.0 - 100.0 FL 10/08/2020 9:[address] [facility] MCH 25.2(L) 27.0 - 31.0 PG 10/08/2020 9:[address] [facility] MCHC 30.3(L) 33.0 - 36.0 G/DL 10/08/2020 9:[address] [facility] RDW 14.1 11.5 - 14.5 % 10/08/2020 9:[address] [facility] PLT 125(L) 150 - 350 x10'3/uL 10/08/2020 9:[address] [facility] MPV 13.8(H) 7.4 - 10.4 FL 10/08/2020 9:[address] [facility] DIFFERENTIAL COMMENT NORMAL REFERENCE RANGE NOT ESTABLISHED FOR THE PROPORTIONAL LEUKOCYTE DIFFERENTIAL. 10/08/2020 9:[address] [facility] SEG NEUTROPHILS 67.2 % 9:[address] [facility] LYMPHOCYTES 22.3 % 10/08/2020 9:[address] [facility] MONOCYTES 6.4 % 10/08/2020 9:[address] [facility] EOSINOPHILS 2.9 % 10/08/2020 9:[address] [facility] BASOPHILS 0.9 % 10/08/2020 9:[address] [facility] IMMATURE GRANS % 0.3 % 10/09/19 9:[address] [facility] NRBC 0.0 % 10/08/2020 9:[address] [facility] ABS. NEUTROPHILS 6.01 1.60 - 8.30 x10'3/uL 10/08/2020 9:[address] [facility] ABS. LYMPHOCYTES 1.99 0.80 - 4.70 x10'3/uL 10/08/2020 9:[address] [facility] ABS. MONOCYTES 0.57 0.00 - 1.50 x10'3/uL 10/08/2020 9:[address] [facility] ABS. EOSINOPHILS 0.26 0.00 - 0.40 x10'3/uL 10/08/2020 9:[address] [facility] ABS. BASOPHILS 0.08 0.00 - 0.20 x10'3/uL 10/08/2020 9:[address] [facility] ABS. IMMATURE GRANULOCYTES 0.03 0.00 - 0.03 x10'3/uL 10/08/2020 9:[address] [facility] ABS. NUCLEATED RBC'S 0.00 0.00 x10'3/uL 10/08/2020 9:[address] [facility] 10/08/2020 8:59 AM CDT us Roberta Alex MD LABORATORY Final Result [facility] [address] [employer] [place] [employer] [place] [address], documented in this encounter Visit Diagnoses Diagnosis Thrombocytopenia (CMS/HCC) Thrombocytopenia, unspecified documented in this encounter Care Teams Cardiovascular Sonographer Relationship Specialty Start Date End Date Alejandro Blevins MD PCP - General FAMILY PRACTICE 12/10/19 documented as of this encounter
--- OUTSIDE RECORDS SUMMARY | 2024-07-11 05:42 | XMS_ITS | Encounter Summary ---
Author Organization [facility] Address [address] [place] [address]. [place] [address] [place] [address] Care Team Providers Care Logistics Engineering Manager Name Role Phone Alejandro Blevins MD Primary Care Provider [phone] Encounter Details Date Type Department Care Team (Latest Contact Info) Description 10/21/2020 11:10 AM CDT - 10/21/2020 11:59 PM CDT Hospital Encounter [address] [place] [address] Roberta Alex MD [address] [place] [address] Discharge Disposition: Home or Self Care (Routine Discharge) Social History Tobacco Use Types Packs/Day Years Used Date Smoking Tobacco: Former Smokeless Tobacco: Current Comments Yes Sex and Gender Information Value Date Recorded Sex Assigned at Not on file Legal Sex Female 11:30 PM INVENTORY CONTROL SUPERVISOR Gender Identity Female 11/10/2021 3:09 PM CDT Sexual Orientation Straight 11/10/2021 3 :09 PM CDT COVID-19 Exposure Response Date Recorded In the last month, have you been in contact with someone who was confirmed or suspected to have Coronavirus / COVID-19? No / Unsure 10/21/2020 1:56 PM CDT documented as of this encounter Functional Status * RETIRED Are you deaf or do you have serious difficulty hearing Answer Date of Assessment Author Status No 07/30/2020 10:48 PM INVENTORY CONTROL SUPERVISOR Acti ve * RETIRED Are you blind or do you have serious difficulty seeing, even when wearing glasses? Answer Date of Assessment Author Status No 07/30/2020 10:46 PM INVENTORY CONTROL SUPERVISOR Acti ve * Do you have [...] this encounter Medications at Time of Discharge Cyanocobalamin (VITAMIN B 12) 500 MCG Tab Take 1 tablet by mouth daily. 30 tablet 1 10/10/2020 01/06/2021 ferrous sulfate, 65 mg elemental, 325 (65 FE) MG tablet Take 1 tablet (325 mg total) by mouth daily with breakfast. 30 tablet 1 10/10/2020 01/06/2021 Sofosbuvir-Velpat asvir 400-100 MG Tab Take 1 tablet by mouth daily. 06/17/2020 01/06/2021 documented as of this encounter Plan of Treatment Upcoming Encounters Date Type Department Care Team (Late st Contact Info) Description 09/25/2024 11:30 AM INVENTORY CONTROL SUPERVISOR Appointment [facility] [address] [place] [address] Roberta Alex MD [address] [place] [address] 09/25/2024 11:40 AM INVENTORY CONTROL SUPERVISOR Office Visit [facility] [address] [place] [address] Roberta Alex MD [address] [place] [address] documented as of this encounter Procedures Procedure Name Priority Date/Time Associated Diagnosis Comments CBC W/DIFF AUTOMATED Routine 10/21/2020 2:08 PM CDT Thrombocytopenia documented in this encounter Results * (ABNORMAL) CBC W/DIFF AUTOMATED (10/21/2020 2:08 PM CDT) WBC 7.4 4.5 - 10.8 x10'3/uL 10/21/2020 2:20 PM CDT [facility] RBC 4.27 4.10 - 5.40 x10'6/uL 10/21/2020 2:20 PM CDT [facility] HGB 10.2(L) 12.0 - 16.0 G/DL 10/21/2020 2:20 PM CDT [facility] HCT 34.4(L) 36.0 - 47.0 % 10/21/2020 2:20 PM CDT [facility] MCV 80.6 78.0 - 100.0 FL 10/21/2020 2:20 PM CDT [facility] MCH 23.9(L) 27.0 - 31.0 PG 10/21/2020 2:20 PM CDT [facility] MCHC 29.7(L) 33.0 - 36.0 G/DL 10/21/2020 2:20 PM CDT [facility] RDW 14.6(H) 11.5 - 14.5 % 10/21/2020 2:20 PM CDT [facility] PLT 109(L) 150 - 350 x10'3/uL 10/21/2020 2:20 PM CDT [facility] MPV RESULTS NOT AVAILABLE 7.4 - 10.4 FL 10/21/2020 2:20 PM CDT [facility] DIFFERENTIAL COMMENT NORMAL REFERENCE RANGE NOT ESTABLISHED FOR THE PROPORTIONAL LEUKOCYTE DIFFERENTIAL. 10/21/2020 2:20 PM CDT [facility] SEG NEUTROPHILS 64.5 % 2:51 PM CDT [facility] LYMPHOCYTES 24.9 % 10/21/2020 2:51 PM CDT [facility] MONOCYTES 5.8 % 10/21/2020 2:51 PM CDT [facility] EOSINOPHILS 3.3 % 10/21/2020 2:51 PM CDT [facility] BASOPHILS 1.2 % 10/21/2020 2:51 PM CDT [facility] IMMATURE GRANS % 0.3 % 10/22/19 2:51 PM CDT [facility] NRBC 0.0 % 10/21/2020 2:51 PM CDT [facility] ABS. NEUTROPHILS 4.77 1.60 - 8.30 x10'3/uL 10/21/2020 2:51 PM CDT [facility] ABS. LYMPHOCYTES 1.84 0.80 - 4.70 x10'3/uL 10/21/2020 2:51 PM CDT [facility] ABS. MONOCYTES 0.43 0.00 - 1.50 x10'3/uL 10/21/2020 2:51 PM CDT [facility] ABS. EOSINOPHILS 0.24 0.00 - 0.40 x10'3/uL 10/21/2020 2:51 PM CDT [facility] ABS. BASOPHILS 0.09 0.00 - 0.20 x10'3/uL 10/21/2020 2:51 PM CDT [facility] ABS. IMMATURE GRANULOCYTES 0.02 0.00 - 0.03 x10'3/uL 10/21/2020 2:51 PM CDT [facility] ABS. NUCLEATED RBC'S 0.00 0.00 x10'3/uL 10/21/2020 2:51 PM CDT [facility] PLT MORPH. NORMAL 10/21/2020 2:51 PM CDT [facility] RBC MORPHOLOGY NORMAL 10/21/2020 2:51 PM CDT [facility] 10/21/2020 2:08 PM CDT Roberta Alex MD LABORATORY Final Result [facility] [address] [place] [address], documented in this encounter Visit Diagnoses Diagnosis Thrombocytopenia (CMS/HCC) Thrombocytopenia, unspecified documented in this encounter Care Teams Logistics Engineering Manager Relationship Specialty Start Date End Date Alejandro Blevins MD PCP - General FAMILY PRACTICE 12/10/19 documented as of this encounter
--- OUTSIDE RECORDS SUMMARY | 2024-07-11 05:42 | XMS_ITS | Encounter Summary ---
Author Organization [facility] Address [address] [place] [address]. [place] [address] [place] [address] Care Team Providers Care Pile Driving Supervisor Name Role Phone Alejandro Blevins MD Primary Care Provider [phone] Encounter Details Date Type Department Care Team (Late st Contact Info) Description 05/01/2021 Orders Only [address] [place] [address] Tejinder Garcia, [facility] Social History Tobacco Use Types Packs/Day Years Used Date Smoking Tobacco: Former Smokeless Tobacco: Current Comments No Sex and Gender Information Value Date Recorded Sex Assigned at Not on file Legal Sex Female 11:30 PM SIGNALER Gender Identity Female 11/10/2021 3:09 PM CDT Sexual Orientation Straight 11/10/2021 3: 09 PM CDT COVID-19 Exposure Response Date Recorded In the last month, have you been in contact with someone who was confirmed or suspected to have Coronavirus / COVID-19? No / Unsure 05/01/2021 1:20 PM CDT documented as of this encounter Functional Status * RETIRED Are you deaf or do you have serious difficulty hearing Answer Date of Assessment Author Status No 07/30/2020 10:48 PM SIGNALER Acti ve * RETIRED Are you blind or do you have serious difficulty seeing, even when wearing glasses? Answer Date of Assessment Author Status No 07/30/2020 10:46 PM SIGNALER Acti ve * Do you have serious difficulty walking or climbing stairs? Answer Date of Assessment Author Status No 07/30/2020 10:46 PM SIGNALER Nella Le RN Active * Do you [...] st Contact Info) Description 09/25/2024 11:30 AM SIGNALER Appointment [facility] [address] [place] [address] Roberta Alex MD [address] [place] [address] 09/25/2024 11:40 AM SIGNALER Office Visit [facility] [address] [place] [address] Roberta Alex MD [address] [place] [address] documented as of this encounter Visit Diagnoses Diagnosis Chronic ITP (idiopathic thrombocytopenia) ([facility]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
--- OUTSIDE RECORDS SUMMARY | 2024-07-11 05:42 | XMS_ITS | Encounter Summary ---
Author Organization [facility] Address [address] [place] [address]. [place] [address] [place] [address] Care Team Providers Care Heel Edge Inker Machine Name Role Phone Alejandro Blevins MD Primary Care Provider [phone] Encounter Details Date Type Department Care Team (Late st Contact Info) Description 08/06/2020 Orders Only [address] [place] [address] Kitty Elizondo RN Social History Tobacco Use Types Packs/Day Years Used Date Smoking Tobacco: Former Smokeless Tobacco: Current Comments Yes Sex and Gender Information Value Date Recorded Sex Assigned at Not on file Legal Sex Female 11:30 PM MULTIPLE DRUM SANDER HELPER Gender Identity Female 11/10/2021 3:09 PM CDT Sexual Orientation Straight 11/10/2021 3: 09 PM CDT COVID-19 Exposure Response Date Recorded In the last month, have you been in contact with someone who was confirmed or suspected to have Coronavirus / COVID-19? No / Unsure 08/07/2020 8:30 AM MULTIPLE DRUM SANDER HELPER documented as of this encounter Functional Status * RETIRED Are you deaf or do you have serious difficulty hearing Answer Date of Assessment Author Status No 07/30/2020 10:48 PM MULTIPLE DRUM SANDER HELPER Acti ve * RETIRED Are you blind or do you have serious difficulty seeing, even when wearing glasses? Answer Date of Assessment Author Status No 07/30/2020 10:46 PM MULTIPLE DRUM SANDER HELPER Acti ve * Do you have serious difficulty walking or climbing stairs? Answer Date of Assessment Author Status No 07/30/2020 10:46 PM MULTIPLE DRUM SANDER HELPER Nella Le RN Active * Do you [...] st Contact Info) Description 09/25/2024 11:30 AM MULTIPLE DRUM SANDER HELPER Appointment [facility] [address] [address] Roberta Alex MD [address] [place] [id number] 09/25/2024 11:40 AM MULTIPLE DRUM SANDER HELPER Office Visit [facility] [address] [place] [address] Roberta Alex MD [address] [place] [address] documented as of this encounter Results * (ABNORMAL) CBC W/DIFF AUTOMATED (08/07/2020 8:38 AM MULTIPLE DRUM SANDER HELPER) WBC 10.5 4.5 - 10.8 x10'3/uL 08/07/2020 8:45 AM MULTIPLE DRUM SANDER HELPER [facility] RBC 4.67 4.10 - 5.40 x10'6/uL 08/07/2020 8:45 AM MULTIPLE DRUM SANDER HELPER [facility] HGB 12.9 12.0 - 16.0 G/DL 08/07/2020 8:45 AM MULTIPLE DRUM SANDER HELPER [facility] HCT 41.5 36.0 - 47.0 % 08/07/2020 8:45 AM MULTIPLE DRUM SANDER HELPER [facility] MCV 88.9 78.0 - 100.0 FL 08/07/2020 8:45 AM [facility] MCH 27.6 27.0 - 31.0 PG 08/07/2020 8:45 AM [facility] MCHC 31.1(L) 33.0 - 36.0 G/DL 08/07/2020 8:45 AM [facility] RDW 13.8 11.5 - 14.5 % 08/07/2020 8:45 AM [facility] PLT 289 150 - 350 x10'3/uL 08/07/2020 8:45 AM [facility] MPV 11.0(H) 7.4 - 10.4 FL 08/07/2020 8:45 AM [facility] DIFFERENTIAL COMMENT NORMAL REFERENCE RANGE NOT ESTABLISHED FOR THE PROPORTIONAL LEUKOCYTE DIFFERENTIAL. 08/07/2020 8:45 AM [facility] SEG NEUTROPHILS 71.7 % 8:45 AM [facility] LYMPHOCYTES 22.4 % 08/07/2020 8:45 AM [facility] MONOCYTES 5.1 % 08/07/2020 8:45 AM [facility] EOSINOPHILS 0.4 % 08/07/2020 8:45 AM [facility] BASOPHILS 0.2 % 08/07/2020 8:45 AM [facility] IMMATURE GRANS % 0.2 % 08/07/19 8:45 AM [facility] NRBC 0.0 % 08/07/2020 8:45 AM [facility] ABS. NEUTROPHILS 7.54 1.60 - 8.30 x10'3/uL 08/07/2020 8:45 AM [facility] ABS. LYMPHOCYTES 2.36 0.80 - 4.70 x10'3/uL 08/07/2020 8:45 AM [facility] ABS. MONOCYTES 0.54 0.00 - 1.50 x10'3/uL 08/07/2020 8:45 AM [facility] ABS. EOSINOPHILS 0.04 0.00 - 0.40 x10'3/uL 08/07/2020 8:45 AM MULTIPLE DRUM SANDER HELPER [facility] ABS. BASOPHILS 0.02 0.00 - 0.20 x10'3/uL 08/07/2020 8:45 AM MULTIPLE DRUM SANDER HELPER [facility] ABS. IMMATURE GRANULOCYTES 0.02 0.00 - 0.03 x10'3/uL 08/07/2020 8:45 AM MULTIPLE DRUM SANDER HELPER [facility] ABS. 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
--- OUTSIDE RECORDS SUMMARY | 2024-07-11 05:42 | XMS_ITS | Encounter Summary ---
Author Organization [facility] Address [address] [place] [address]. [place] [address] [place] [address] Care Team Providers Care Manager Latin Name Role Phone Alejandro Blevins MD Primary Care Provider [phone] Reason for Visit * Reason Onset Date Comments Results 04/24/2021 Encounter Details Date Type Department Care Team (Late st Contact Info) Description 04/24/2021 Orders Only [facility] [address] [place] [id number] Roberta Alex MD [address] [place] [address] Results Social History Tobacco Use Types Packs/Day Years Used Date Smoking Tobacco: Former Smokeless Tobacco: Current Comments No Sex and Gender Information Value Date Recorded Sex Assigned at Not on file Legal Sex Female 11:30 PM FELLER OPERATOR Gender Identity Female 11/10/2021 3:09 PM [...] Assessment Author Status No 07/30/2020 10:48 PM FELLER OPERATOR Acti ve * RETIRED Are you blind or do you have serious difficulty seeing, even when wearing glasses? Answer Date of Assessment Author Status No 07/30/2020 10:46 PM FELLER OPERATOR Acti ve * Do you have [...] Progress Notes * Roberta Alex MD - 04/24/2021 2:51 PM CDT D/w Pt- She has IUD in place- last 2 weeks- bleeding noted. She refuses steroids. Plan for N plate weekly. She previously got it in Aug 2020. Lets arrange it for Tuesday. documented in this encounter Plan of Treatment Upcoming Encounters Date Type Department Care Team (Late st Contact Info) Description 09/25/2024 11:30 AM FELLER OPERATOR Appointment [facility] [place] [address] Roberta Alex MD [address] [place] [address] 09/25/2024 11:40 AM FELLER OPERATOR Office Visit [facility] [place] [address] [address] Roberta Alex MD [address] [place] [address] documented as of this encounter Visit Diagnoses Not on filedocumented in this encounter Care Teams Manager Latin Relationship Specialty Start Date End Date Alejandro Blevins MD PCP - General FAMILY PRACTICE 12/10/19 documented as of this encounter
--- OUTSIDE RECORDS SUMMARY | 2024-07-11 05:42 | XMS_ITS | Encounter Summary ---
Author Organization [facility] Address [address] [place] [address]. [place] [address] [place] [address] Care Team Providers Care Line Assigner Name Role Phone Alejandro Blevins MD Primary Care Provider [phone] Reason for Visit * Reason Comments Infusion Therapy * Treatment/Therapy Plan Authorization (Routine) - Closed Specialty Diagnoses / Procedures Referred By Contac t Referred To Contact Diagnoses Iron deficiency anemia due to chronic blood loss Procedures Roberta Wood MD [address] [place] [address] Phone: tel: fax: [facility] [place] [address] Phone: tel: Referral ID Status Reason Start Date Expiration Date Visits Re quested Visits Authorized [id number] Closed 12/31/2020 07/24/2021 1 1 Encounter Details Date Type Department Care Team (Latest Contact Info) Description 01/27/2021 1:00 PM CDT - 01/27/2021 11:59 PM CDT Hospital Encounter [facility] [place] [address] Roberta Alex MD [address] [place] [address] Infusion Therapy Discharge Disposition: Home or Self Care (Routine Discharge) Social History Tobacco Use Types Packs/Day Years Used Date Smoking Tobacco: Former Smokeless Tobacco: Current Comments Yes Sex and Gender Information Value Date Recorded Sex Assigned at Not on file Legal Sex Female 11:30 PM BLOCK OPERATOR Gender Identity Female 11/10/2021 3:09 PM [...] Sign Reading Time Taken Comments Blood Pressure 117/60 01/27/2021 1:05 PM CDT Pulse 91 01/27/2021 1:05 PM CDT Temperature 36.4 ??C (97.6 ??F) 01/27/2021 1:05 PM CD T Respiratory Rate 20 01/27/2021 1:05 PM CDT Oxygen Saturation 100% 01/27/2021 1:05 PM CDT Inhaled Oxygen Concentration - - Weight 66 kg (145 lb 9.6 oz) 01/27/2021 1:05 PM CDT Height - - Body Mass Index 24.23 12/30/2020 4:08 PM CDT documented in this encounter Functional Status * RETIRED Are you deaf or do you have serious difficulty hearing Answer Date of Assessment Author Status No 07/30/2020 10:48 PM BLOCK OPERATOR Acti ve * RETIRED Are you blind or do you have serious difficulty seeing, even when wearing glasses? Answer Date of Assessment Author Status No 07/30/2020 10:46 PM BLOCK OPERATOR Acti ve * Do you have serious difficulty walking or climbing stairs? Answer Date of Assessment Author Status No 07/30/2020 10:46 PM BLOCK OPERATOR Nella Le RN Active * Do you have difficulty dressing or bathing? Answer Date of Assessment Author Status No 07/30/2020 10:46 PM BLOCK OPERATOR Nella Le RN Active * Because [...] Date Author Status No 07/30/2020 10:46 PM BLOCK OPERATOR Nella Le RN Active documented in this encounter Medications at Time of Discharge Acetaminophen-Cod eine (TYLENOL/CODEINE #3) 300-30 MG tablet Take 1 tablet by mouth every 4 (four) hours as needed for Pain. 05/01/2021 clindamycin 300 MG capsule Take 300 mg by mouth daily. 05/01/2021 documented as of this encounter Progress Notes * Cecilia Healy - 01/27/2021 1:00 PM CDTEncounter addended by: Cecilia Healy on: 01/29/2021 12:46 PM Actions taken: Charge Capture section accepted * Leslie Soriano RN - 01/27/2021 1:00 PM CDT PATIENT ASSESSMENT: Admitted via: Ambulatory Admitted from: Home Planned procedure: Scheduled venofer Patient information verified by LESLIE SORIANO [...] st Contact Info) Description 09/25/2024 11:30 AM BLOCK OPERATOR Appointment [facility] [address] [place] [address] Roberta Alex MD [address] [place] [id number] 09/25/2024 11:40 AM BLOCK OPERATOR Office Visit [facility] [address] [place] [address] Roberta Alex MD [address] [place] [address] documented as of this encounter Visit Diagnoses [...] 250 mL IVPB 300 mg, Intravenous, at 166.7 mL/hr, Once, 1 dose, On Tue01/27/21 at 1330Indications:Iron deficiency anemia due to chronic blood loss New Bag 01/27/2021 1:20 PM CDT 300 mg 166.7 mL/hr sodium chloride 0.9% bolus infusion SOLN 250 mL 250 mL, Intravenous, Continuous, Starting on Tue01/27/21 at 1330, Until Tue01/29/21 at 0246, Infuse at 10 mL/hr TKO as neededIndications:Iron deficiency anemia due to chronic blood loss New Bag 01/27/2021 1:21 PM CDT 250 mLs 10 mL/hr documented in this encounter Care Teams Line Assigner Relationship Specialty Start Date End Date Alejandro Blevins MD PCP - General FAMILY PRACTICE 12/10/19 documented as of this encounter
--- OUTSIDE RECORDS SUMMARY | 2024-07-11 05:42 | XMS_ITS | Encounter Summary ---
Author Organization [facility] Address [address] [place] [address]. [place] [address] [place] [address] Care Team Providers Care Mohs Surgeon Name Role Phone Alejandro Blevins MD Primary Care Provider [phone] Encounter Details Date Type Department Care Team (Late st Contact Info) Description 12/30/2020 Orders Only [address] [place] [address] Tejinder Garcia, [facility] Social History Tobacco Use Types Packs/Day Years Used Date Smoking Tobacco: Former Smokeless Tobacco: Current Comments Yes Sex and Gender Information Value Date Recorded Sex Assigned at Not on file Legal Sex Female 11:30 PM MANAGER LEARNING Gender Identity Female 11/10/2021 3:09 PM CDT Sexual Orientation Straight 11/10/2021 3: 09 PM CDT COVID-19 Exposure Response Date Recorded In the last month, have you been in contact with someone who was confirmed or suspected to have Coronavirus / COVID-19? No / Unsure 12/30/2020 3:51 PM CDT documented as of this encounter Functional Status * RETIRED Are you deaf or do you have serious difficulty hearing Answer Date of Assessment Author Status No 07/30/2020 10:48 PM MANAGER LEARNING Acti ve * RETIRED Are you blind or do you have serious difficulty seeing, even when wearing glasses? Answer Date of Assessment Author Status No 07/30/2020 10:46 PM MANAGER LEARNING Acti ve * Do you have serious difficulty walking or climbing stairs? Answer Date of Assessment Author Status No 07/30/2020 10:46 PM MANAGER LEARNING Nella Le RN Active * Do you have difficulty dressing or bathing? Answer Date of Assessment Author Status No 07/30/2020 10:46 PM MANAGER LEARNING Nella Le RN Active * Because of [...] Contact Info) Description 09/25/2024 11:30 AM MANAGER LEARNING Appointment [facility] [address] [place] [address] Roberta Alex MD [address] [place] [address] 09/25/2024 11:40 AM MANAGER LEARNING Office Visit [facility] [address] [place] [address] Roberta Alex MD [address] [place] [address] documented as of this encounter Results * VITAMIN B-12 (12/30/2020 4:52 PM CDT) VITAMIN B12 S/P/B 508 193 - 986 PG/ML 12/31/2020 3:36 PM CDT [facility] 12/30/2020 4:52 PM CDT Roberta Alex MD LABORATORY Final Result [facility] [address] [place] [address], [id number] * (ABNORMAL) FERRITIN (12/30/2020 4:52 PM CDT) FERRITIN 2.4(L) 8 - 252 NG/ML 12/30/2020 5:25 PM CDT [facility] 12/30/2020 4:52 PM CDT Roberta Alex MD LABORATORY Final Result Performing Organization Address City/[facility]/ZIP Co de Phone Number [facility] [address] [place] [phone], [place] [phone] * (ABNORMAL) IRON SATURATION PNL (FE/TIBC/SAT) (12/30/2020 4:52 PM CDT) IRON 11(L) 50 - 170 MCG/DL 12/30/2020 5:16 PM CDT [facility] IRON BINDING CAPACITY 428 250 - 450 MCG/DL 12/30/2020 5:16 PM CDT [facility] IRON SATURATION 3 % 5:16 PM CDT [facility] Comment:REFERENCE RANGE NOT ESTABLISHED 12/30/2020 4:52 PM CDT Roberta Alex MD LABORATORY Final Result Performing Organization Address City/[facility] Co de Phone Number [facility] [address] [place] [address], documented in this encounter Visit Diagnoses Diagnosis Iron deficiency anemia secondary to inadequate dietary iron intake- Primary documented in this encounter Care Teams Mohs Surgeon Relationship Specialty Start Date End Date Alejandro Blevins MD PCP - General FAMILY PRACTICE 12/10/19 documented as of this encounter
--- OUTSIDE RECORDS SUMMARY | 2024-07-11 05:42 | XMS_ITS | Encounter Summary ---
Author Organization [facility] Address [address] [place] [address]. [place], [place] [address] [place] [address] Care Team Providers Care Leather Flesher Name Role Phone Alejandro Blevins MD Primary Care Provider [phone] Encounter Details Date Type Department Care Team (Latest Contact Info) Description 01/20/2021 Travel Social History Tobacco Use Types Packs/Day Years Used Date Smoking Tobacco: Former Smokeless Tobacco: Current Comments Yes Sex and Gender Information Value Date Recorded Sex Assigned at Not on file Legal Sex Female 11:30 PM ZIPPER CUTTER Gender Identity Female 11/10/2021 3:09 PM CDT [...] Assessment Author Status No 07/30/2020 10:48 PM ZIPPER CUTTER Acti ve * RETIRED Are you blind or do you have serious difficulty seeing, even when wearing glasses? Answer Date of Assessment Author Status No 07/30/2020 10:46 PM ZIPPER CUTTER Acti ve * Do you have serious difficulty walking or climbing stairs? Answer Date of Assessment Author Status No 07/30/2020 10:46 PM ZIPPER CUTTER Nella Le RN Active * Do you have difficulty dressing or bathing? Answer Date of Assessment Author Status No 07/30/2020 10:46 PM ZIPPER CUTTER Nella Le RN Active * Because of [...] st Contact Info) Description 09/25/2024 11:30 AM ZIPPER CUTTER Appointment [place] [id number] [facility] [place] [address] Roberta Alex MD [address] [place] [address] 09/25/2024 11:40 AM ZIPPER CUTTER Office Visit [facility] [place] [address] Roberta Alex MD [address] [place] [phone] documented as of this encounter Visit Diagnoses Not on filedocumented in this encounter Care Teams Leather Flesher Relationship Specialty Start Date End Date Alejandro Blevins MD PCP - General FAMILY PRACTICE 12/10/19 documented as of this encounter
--- OUTSIDE RECORDS SUMMARY | 2024-07-11 05:42 | XMS_ITS | Encounter Summary ---
Author Organization [facility] Address [address] [place] [address]. [place] [address] [place] [address] Care Team Providers Care Direct Sales Consultant Name Role Phone Alejandro Blevins MD Primary Care Provider [phone] Encounter Details Date Type Department Care Team (Latest Contact Info) Description 05/15/2021 10:51 AM CDT - 05/15/2021 11:59 PM CDT Hospital Encounter [address] [place] [address] Roberta Alex MD [address] [place] [address] Discharge Disposition: Home or Self Care (Routine Discharge) Social History Tobacco Use Types Packs/Day Years Used Date Smoking Tobacco: Former Smokeless Tobacco: Current Comments No Sex and Gender Information Value Date Recorded Sex Assigned at Not on file Legal Sex Female 11:30 PM INDEPENDENT AGENT MUSIC EDUCATION Gender Identity Female 11/10/2021 3:09 PM CDT [...] Assessment Author Status No 07/30/2020 10:48 PM INDEPENDENT AGENT MUSIC EDUCATION Acti ve * RETIRED Are you blind or do you have serious difficulty seeing, even when wearing glasses? Answer Date of Assessment Author Status No 07/30/2020 10:46 PM INDEPENDENT AGENT MUSIC EDUCATION Acti ve * Do you have serious [...] Type Department Care Team (Late st [facility] Info) Description 09/25/2024 11:30 AM INDEPENDENT AGENT MUSIC EDUCATION Appointment [facility] [address] [facility] [place] [address] Roberta Alex MD [address] [place] [id number] 09/25/2024 11:40 AM INDEPENDENT AGENT MUSIC EDUCATION Office Visit [facility] [place] [address] Roberta Alex MD [address] [place] [address] documented as of this encounter Procedures Procedure Name Priority Date/Time Associated Diagnosis Comments CBC W/DIFF AUTOMATED Routine 05/15/2021 10:58 AM CDT Thrombocytopenia documented in this encounter Results * (ABNORMAL) CBC W/DIFF AUTOMATED (05/15/2021 10:58 AM CDT) WBC 7.0 4.0 - 10.8 x10'3/uL 05/15/2021 11:23 AM CDT [facility] RBC 4.79 4.10 - 5.40 x10'6/uL 05/15/2021 11:23 AM CDT [facility] HGB 13.1 12.0 - 16.0 G/DL 05/15/2021 11:23 AM CDT [facility] HCT 43.1 36.0 - 47.0 % 05/15/2021 11:23 AM CDT [facility] MCV 90.0 78.0 - 100.0 FL 05/15/2021 11:23 AM CDT [facility] MCH 27.3 27.0 - 31.0 PG 05/15/2021 11:23 AM CDT [facility] MCHC 30.4(L) 33.0 - 36.0 G/DL 05/15/2021 11:23 AM CDT [facility] RDW 13.4 11.5 - 14.5 % 05/15/2021 11:23 AM CDT [facility] PLT 52(L) 150 - 350 x10'3/uL 05/15/2021 11:23 AM CDT [facility] MPV RESULTS NOT AVAILABLE 7.4 - 10.4 FL 05/15/2021 11:23 AM CDT [facility] DIFFERENTIAL COMMENT NORMAL REFERENCE RANGE NOT ESTABLISHED FOR THE PROPORTIONAL LEUKOCYTE DIFFERENTIAL. 05/15/2021 11:23 AM CDT [facility] SEG NEUTROPHILS 62.1 % 11:24 AM CDT [facility] LYMPHOCYTES 26.7 % 05/15/2021 11:24 AM CDT [facility] MONOCYTES 5.9 % 05/15/2021 11:24 AM CDT [facility] EOSINOPHILS 4.3 % 05/15/2021 11:24 AM CDT [facility] BASOPHILS 0.7 % 05/15/2021 11:24 AM CDT [facility] IMMATURE GRANS % 0.3 % 05/15/20 11:24 AM CDT [facility] NRBC 0.0 % 05/15/2021 11:24 AM CDT [facility] ABS. NEUTROPHILS 4.35 1.60 - 8.30 x10'3/uL 05/15/2021 11:24 AM CDT [facility] ABS. LYMPHOCYTES 1.87 0.80 - 4.70 x10'3/uL 05/15/2021 11:24 AM CDT [facility] ABS. MONOCYTES 0.41 0.00 - 1.50 x10'3/uL 05/15/2021 11:24 AM CDT [facility] ABS. EOSINOPHILS 0.30 0.00 - 0.40 x10'3/uL 05/15/2021 11:24 AM CDT [facility] ABS. BASOPHILS 0.05 0.00 - 0.20 x10'3/uL 05/15/2021 11:24 AM CDT [facility] ABS. IMMATURE GRANULOCYTES 0.02 0.00 - 0.03 x10'3/uL 05/15/2021 11:24 AM CDT [facility] ABS. NUCLEATED RBC'S 0.00 0.00 x10'3/uL 05/15/2021 11:24 AM CDT [facility] PLT MORPH. DECREASED 05/15/2021 11:24 AM CDT [facility] RBC MORPHOLOGY NORMAL 05/15/2021 11:24 AM CDT [facility] 05/15/2021 10:5 8 AM CDT Roberta Alex MD LABORATORY Final Result [facility] [address] [place] [address], documented in this encounter Visit Diagnoses Diagnosis Thrombocytopenia (CMS/HCC) Thrombocytopenia, unspecified documented in this encounter Care Teams Direct Sales Consultant Relationship Specialty Start Date End Date Alejandro Blevins MD PCP - General FAMILY PRACTICE 12/10/19 documented as of this encounter
--- OUTSIDE RECORDS SUMMARY | 2024-07-11 05:42 | XMS_ITS | Encounter Summary ---
Author Organization [facility] Address [address] [place] [address]. [place] [address] [place] [address] Care Team Providers Care Director Religious Education Name Role Phone Alejandro Blevins MD Primary Care Provider [phone] Encounter Details Date Type Department Care Team (Latest Contact Info) Description 05/29/2021 10:05 AM CDT - 05/29/2021 10:53 AM CDT Hospital Encounter [address] [place] [address] Roberta Alex MD [address] [place] [address] Discharge Disposition: Home or Self Care (Routine Discharge) Social History Tobacco Use Types Packs/Day Years Used Date Smoking Tobacco: Former Smokeless Tobacco: Current Comments No Sex and Gender Information Value Date Recorded Sex Assigned at Not on file Legal Sex Female 11:30 PM COMPUTER FORENSICS ANALYST Gender Identity Female 11/10/2021 3:09 PM [...] Assessment Author Status No 07/30/2020 10:48 PM COMPUTER FORENSICS ANALYST Acti ve * RETIRED Are you blind or do you have serious difficulty seeing, even when wearing glasses? Answer Date of Assessment Author Status No 07/30/2020 10:46 PM COMPUTER FORENSICS ANALYST Acti ve * Do you have [...] st Contact Info) Description 09/25/2024 11:30 AM COMPUTER FORENSICS ANALYST Appointment [facility] [address] [facility] [address] [place] [address] Roberta Alex MD [address] [place] [address] 09/25/2024 11:40 AM COMPUTER FORENSICS ANALYST Office Visit [facility] [address] [place] [address] Roberta Alex MD [address] [place] [address] documented as of this encounter Procedures Procedure Name Priority Date/Time Associated Diagnosis Comments BLOOD BANK - SPECIMEN HOLD Routine 05/29/2021 10:20 AM CDT Chronic ITP (idiopathic thrombocytopenia) ([facility]/HCC [facility]/HCC) CBC W/DIFF AUTOMATED Routine 05/29/2021 10:20 AM CDT Thrombocytopenia documented in this encounter Results * Blood Bank - Specimen Hold (05/29/2021 10:20 AM CDT) SAMPLE LAB COLLECTED SPECIMEN 05/29/2021 10:05 AM CDT [facility] Blood specimen (specimen) 05/29/2021 10:20 AM CDT us Roberta Alex MD BLOOD BANK TEST ORDERABLES Fin al Result [facility] [address] [place] [address], * (ABNORMAL) CBC W/DIFF AUTOMATED (05/29/2021 10:20 AM CDT) [facility] WBC 10.3 4.0 - 10.8 x10'3/uL 05/29/2021 10:51 AM CDT [facility] RBC 4.89 4.10 - 5.40 x10'6/uL 05/29/2021 10:51 AM CDT [facility] HGB 13.9 12.0 - 16.0 G/DL 05/29/2021 10:51 AM CDT [facility] HCT 43.2 36.0 - 47.0 % 05/29/2021 10:51 AM CDT [facility] MCV 88.3 78.0 - 100.0 FL 05/29/2021 10:51 AM CDT [facility] MCH 28.4 27.0 - 31.0 PG 05/29/2021 10:51 AM CDT [facility] MCHC 32.2(L) 33.0 - 36.0 G/DL 05/29/2021 10:51 AM CDT [facility] RDW 13.6 11.5 - 14.5 % 05/29/2021 10:51 AM CDT [facility] PLT 48(L) 150 - 350 x10'3/uL 05/29/2021 10:51 AM CDT [facility] MPV RESULTS NOT AVAILABLE 7.4 - 10.4 FL 05/29/2021 10:51 AM CDT [facility] DIFFERENTIAL COMMENT NORMAL REFERENCE RANGE NOT ESTABLISHED FOR THE PROPORTIONAL LEUKOCYTE DIFFERENTIAL. 05/29/2021 10:51 AM CDT [facility] SEG NEUTROPHILS 71.0 % 10:51 AM CDT [facility] LYMPHOCYTES 18.8 % 05/29/2021 10:51 AM CDT [facility] MONOCYTES 5.6 % 05/29/2021 10:51 AM CDT [facility] EOSINOPHILS 3.8 % 05/29/2021 10:51 AM CDT [facility] BASOPHILS 0.6 % 05/29/2021 10:51 AM CDT [facility] IMMATURE GRANS % 0.2 % 05/29/20 10:51 AM CDT [facility] NRBC 0.0 % 05/29/2021 10:51 AM CDT [facility] ABS. NEUTROPHILS 7.31 1.60 - 8.30 x10'3/uL 05/29/2021 10:51 AM CDT [facility] ABS. LYMPHOCYTES 1.94 0.80 - 4.70 x10'3/uL 05/29/2021 10:51 AM CDT [facility] ABS. MONOCYTES 0.58 0.00 - 1.50 x10'3/uL 05/29/2021 10:51 AM CDT [facility] ABS. EOSINOPHILS 0.39 0.00 - 0.40 x10'3/uL 05/29/2021 10:51 AM CDT [facility] ABS. BASOPHILS 0.06 0.00 - 0.20 x10'3/uL 05/29/2021 10:51 AM CDT [facility] ABS. IMMATURE GRANULOCYTES 0.02 0.00 - 0.03 x10'3/uL 05/29/2021 10:51 AM CDT [facility] ABS. NUCLEATED RBC'S 0.00 0.00 x10'3/uL 05/29/2021 10:51 AM CDT [facility] PLT MORPH. 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
--- OUTSIDE RECORDS SUMMARY | 2024-07-11 05:42 | XMS_ITS | Encounter Summary ---
Author Organization [facility] Address [address] [place] [address]. [place] [address] [place] [address] Care Team Providers Care Completion Engineer Name Role Phone Alejandro Blevins MD Primary Care Provider [phone] Encounter Details Date Type Department Care Team (Latest Contact Info) Description 05/08/2021 10:45 AM CDT - 05/08/2021 11:59 PM CDT Hospital Encounter [address] [place] [address] Roberta Alex MD [address] [place] [address] Discharge Disposition: Home or Self Care (Routine Discharge) Social History Tobacco Use Types Packs/Day Years Used Date Smoking Tobacco: Former Smokeless Tobacco: Current Comments No Sex and Gender Information Value Date Recorded Sex Assigned at Not on file Legal Sex Female 11:30 PM PETROL TANKER DRIVER Gender Identity Female 11/10/2021 3:09 PM CDT Sexual Orientation Straight 11/10/2021 3: 09 PM CDT COVID-19 Exposure Response Date Recorded In the last month, have you been in contact with someone who was confirmed or suspected to have Coronavirus / COVID-19? No / Unsure 05/08/2021 12:41 PM CDT documented as of this encounter Functional Status * RETIRED Are you deaf or do you have serious difficulty hearing Answer Date of Assessment Author Status No 07/30/2020 10:48 PM PETROL TANKER DRIVER Acti ve * RETIRED Are you blind or do you have serious difficulty seeing, even when wearing glasses? Answer Date of Assessment Author Status No 07/30/2020 10:46 PM PETROL TANKER DRIVER Acti ve * Do you have [...] Date Type Department Care Team (Late st [facility] Info) Description 09/25/2024 11:30 AM PETROL TANKER DRIVER Appointment [facility] [address] [place] [address] Roberta Alex MD [address] [place] [address] [id number] 09/25/2024 11:40 AM PETROL TANKER DRIVER Office [facility] [place] [address] Roberta Alex MD [address] [place] [id number] documented as of this encounter Procedures Procedure Name Priority Date/Time Associated Diagnosis Comments CBC W/DIFF AUTOMATED Routine 05/08/2021 12:48 PM CDT Thrombocytopenia documented in this encounter Results * (ABNORMAL) CBC W/DIFF AUTOMATED (05/08/2021 12:48 PM CDT) WBC 10.5 4.0 - 10.8 x10'3/uL 05/08/2021 12:59 PM CDT [facility] RBC 4.74 4.10 - 5.40 x10'6/uL 05/08/2021 12:59 PM CDT [facility] HGB 13.4 12.0 - 16.0 G/DL 05/08/2021 12:59 PM CDT [facility] HCT 42.7 36.0 - 47.0 % 05/08/2021 12:59 PM CDT [facility] MCV 90.1 78.0 - 100.0 FL 05/08/2021 12:59 PM CDT [facility] MCH 28.3 27.0 - 31.0 PG 05/08/2021 12:59 PM CDT [facility] MCHC 31.4(L) 33.0 - 36.0 G/DL 05/08/2021 12:59 PM CDT [facility] RDW 13.7 11.5 - 14.5 % 05/08/2021 12:59 PM CDT [facility] PLT 52(L) 150 - 350 x10'3/uL 05/08/2021 12:59 PM CDT [facility] MPV RESULTS NOT AVAILABLE 7.4 - 10.4 FL 05/08/2021 12:59 PM CDT [facility] DIFFERENTIAL COMMENT NORMAL REFERENCE RANGE NOT ESTABLISHED FOR THE PROPORTIONAL LEUKOCYTE DIFFERENTIAL. 05/08/2021 12:59 PM CDT [facility] SEG NEUTROPHILS 74.3 % 1:08 PM CDT [facility] LYMPHOCYTES 16.9 % 05/08/2021 1:08 PM CDT [facility] MONOCYTES 4.8 % 05/08/2021 1:08 PM CDT [facility] EOSINOPHILS 3.1 % 05/08/2021 1:08 PM CDT [facility] BASOPHILS 0.6 % 05/08/2021 1:08 PM CDT [facility] IMMATURE GRANS % 0.3 % 05/08/20 1:08 PM CDT [facility] NRBC 0.0 % 05/08/2021 1:08 PM CDT [facility] ABS. NEUTROPHILS 7.80 1.60 - 8.30 x10'3/uL 05/08/2021 1:08 PM CDT [facility] ABS. LYMPHOCYTES 1.77 0.80 - 4.70 x10'3/uL 05/08/2021 1:08 PM CDT [facility] ABS. MONOCYTES 0.50 0.00 - 1.50 x10'3/uL 05/08/2021 1:08 PM CDT [facility] ABS. EOSINOPHILS 0.33 0.00 - 0.40 x10'3/uL 05/08/2021 1:08 PM CDT [facility] ABS. BASOPHILS 0.06 0.00 - 0.20 x10'3/uL 05/08/2021 1:08 PM CDT [facility] ABS. IMMATURE GRANULOCYTES 0.03 0.00 - 0.03 x10'3/uL 05/08/2021 1:08 PM CDT [facility] ABS. NUCLEATED RBC'S 0.00 0.00 x10'3/uL 05/08/2021 1:08 PM CDT [facility] PLT MORPH. DECREASED 05/08/2021 1:08 PM CDT [facility] RBC MORPHOLOGY NORMAL 05/08/2021 1:08 PM CDT [facility] 05/08/2021 12:4 8 PM CDT Roberta Alex MD LABORATORY Final Result [facility] [address] [place] [address], documented in this encounter Visit Diagnoses Diagnosis Thrombocytopenia (CMS/HCC) Thrombocytopenia, unspecified documented in this encounter Care Teams Completion Engineer Relationship Specialty Start Date End Date Alejandro Blevins MD PCP - General FAMILY PRACTICE 12/10/19 documented as of this encounter
--- OUTSIDE RECORDS SUMMARY | 2024-07-11 05:42 | XMS_ITS | Encounter Summary ---
Author Organization [facility] Address [address] [place] [address]. [place] [address] [place] [address] Care Team Providers Care Soil Sampler Name Role Phone Alejandro Blevins MD Primary Care Provider [phone] Reason for Visit * Reason Comments Follow Up Lab Results Encounter Details Date Type Department Care Team (Late st Contact Info) Description 12/30/2020 3:40 PM CDT Office Visit [address] [place] [address] Roberta Alex MD [address] [place] [address] Follow Up; Lab Results Social History Tobacco Use Types Packs/Day Years Used Date Smoking Tobacco: Former Smokeless Tobacco: Current Comments Yes Sex and Gender Information Value Date Recorded Sex Assigned at Not on file Legal Sex Female 11:30 PM C IRON WORKER Gender Identity Female 11/10/2021 3:09 PM CDT Sexual Orientation Straight 11/10/2021 3: 09 PM CDT COVID-19 Exposure Response Date Recorded In the last month, have you been in contact with someone who was confirmed or suspected to have Coronavirus / COVID-19? No / Unsure 01/06/2021 1:20 PM CDT documented as of this encounter Last Filed Vital Signs Vital Sign Reading Time Taken Comments Blood Pressure 119/76 12/30/2020 4:08 PM CDT Pulse 83 12/30/2020 4:08 PM CDT Temperature 36.6 ??C (97.9 ??F) 12/30/2020 4:08 PM CD T Respiratory Rate 18 12/30/2020 4:08 PM CDT Oxygen Saturation - - Inhaled Oxygen Concentration - - Weight 66.9 kg (147 lb 7.8 oz) 12/30/2020 4:08 P M CDT Height 165.1 cm (5' 5 ) 12/30/2020 4:08 PM CDT Body Mass Index 24.54 12/30/2020 4:08 PM CDT documented in this encounter Functional Status * RETIRED Are you deaf or do you have serious difficulty hearing Answer Date of Assessment Author Status No 07/30/2020 10:48 PM C IRON WORKER Acti ve * RETIRED Are you blind or do you have serious difficulty seeing, even when wearing glasses? Answer Date of Assessment Author Status No 07/30/2020 10:46 PM C IRON WORKER Acti ve * Do you have [...] Progress Notes * Roberta Alex MD - 12/30/2020 3:40 PM CDT Hematology/Oncology Note Identifying Data Hillary Smalls is a 30-year-old female Reason for Visit: Follow Up and Lab Results Hematology history: Hillary Smalls is a 30-year-old female with hx of ITP, hepatitis C, polysubstance abuse,established care with me when she was with twins at 20 weeks gestation in 11/2019 and had no care. 1. ITP: Previously followed with [facility] flyer maker Dr. Dick Bonilla 5 years ago. - 11/2019- 03/2020: Platelet counts around 50 K, stable during twin - Maintained on observation with plans for dexamethasone close to delivery. Unfortunately complicated with PPH due to placental abruption, hemorrhagic shock requiring intubation and multiple blood products in 03/2020. Her platelets had improved to normal range with Solu-Medrol 1 g, IVIG to normal range at that time - She then developed slow decline with platelet counts to antonio of 26K in 06/2020. - 06/2020: No improvement with Dexmathasone - 07/2020: Improvement with IVIG and Dexamethasone with slow prednisone taper - Around this time, she was also initiated on anti viral treatment for Hepatitis C by [facility] hepatology team. -Again slow decline to 49K in 08/2020, N- plate 1mcg/kg x1 dose on 08/26 with good improvement in platelet counts. [Rituximab was defered though this was not an absolute contraindication in hepatitis C infection. Splenectomy is a high risk due to history of polysubstance abuse and risk of infections]. 2. Iron deficiency and B12 related anemia: Work-up for other causes of anemia including hemolytic work-up, Hgb electrophoresis, MARQUITA were negative. - s/p multiple IV Venofer And IM B12 supplementation until delivery. - Advised oral iron, B12 supplements. Non compliant with supplements 3. 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 Hx of morbidity. Rheumatology evaluation pending. - Unable to start ASA due to fluctuating thrombocytopenia. - No concern for ATE/VTE- no indication for full dose anticoagulation and also contraindicated due to low platelet counts Interval history Today she returns for follow up. She is tired and fatigued. She complains of heavy menstrual cyclesthat last 7 daysm but they are regular, 28 days. Her last menstrual cycle ended on 12/19. 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 REVIEW OF SYSTEMS CONST: No fevers or chills. Worsening fatigue. ENT: No difficulty swallowing. RESP: No shortness of breath. CV: No chest pain. : No urinary symptoms or frequency. PUBLICIST: Heavy menstrual cycles. MSK: No new joint pain or joint swelling. H/L/IMM: No easy bruising or bleeding. ENDO: No cold or heat intolerance. Pertinent History: Past medical history: Chronic hepatitis C, chronic thrombocytopenia, history of IVDU ?? Family history: No family history of any hemoglobinopathies, malignancies. History of anemia, B12 deficiency in thefamily. Social History Socioeconomic History ??? Marital status: Single Spouse name: Not on file ??? Number of children: Not on file ??? Years of education: Not on file ??? Highest education level: Not on file Occupational History ??? Not on file Tobacco Use ??? Smoking status: Former Smoker ??? Smokeless tobacco: Current User Substance and Sexual Activity ??? Alcohol use: Not on file ??? Drug use: Not on file ??? Sexual activity: Not on file Other Topics Concern ??? Not on file Social History Narrative ??? Not on file Social Determinants of Health Financial Resource Strain: ??? Difficulty of Paying Living Expenses: Food Insecurity: ??? Worried About Running Out of Food in the Last Year: ??? Ran Out of Food in the Last Year: Transportation Needs: ??? Lack of Transportation (Medical): ??? Lack of Transportation (Non-Medical): Physical Activity: ??? Days of Exercise per Week: ??? Minutes of Exercise per Session: Stress: ??? Feeling of Stress : Social Connections: ??? Frequency of Communication with Friends and Family: ??? Frequency of Social Gatherings with Friends and Family: ??? Attends [employer] Services: ??? Active Member of Clubs or Organizations: ??? Attends Club or Organization Meetings: ??? Marital Status: Intimate Partner Violence: ??? Fear of Current or Ex-Partner: ??? Emotionally Abused: ??? Physically Abused: ??? Sexually Abused: No past surgical history on file. Current Outpatient Medications Medication Sig Dispense Refill ??? Cyanocobalamin (VITAMIN B 12) 500 MCG Tab Take 1 tablet by mouth daily. 30 tablet 1 ??? ferrous sulfate, 65 mg elemental, 325 (65 FE) MG tablet Take 1 tablet (325 mg total) by mouth daily with breakfast. 30 tablet 1 ??? Sofosbuvir-Velpatasvir 400-100 MG Tab Take 1 tablet by mouth daily. No current facility-administered medications for this visit. Allergies Allergen Reactions ??? Bee Venom Anaphylaxis ??? Shellfish Allergy Anaphylaxis Vitals Height: 5' 5 (1.651 m) , Weight: 66.9 kg (147 lb 7.8 oz) , BSA (Calculated - sq m): 1.75 sq meters , BP: 119/76 , Temp: 97.9 ??F (36.6 ??C) , Pulse: 83 , Resp: 18 CONST: She appears tired. Overall is in usual health and no acute distress. EYES: Conjunctival pallor. ENT: No lesion in the oropharynx. Mucosa normally hydrated. RESP: Chest clear to auscultation. Respiration even and unlabored. CV: Heart regular rate and rhythm without murmur. GI: Abdomen soft without mass, tenderness, ascites, or hernia. MSK: Head: Atraumatic. Normocephalic. No edema. SKIN: No bruises, rashes, petechiae on exposed areas. Warm and dry. PSYCH: Appropriate mood and affect. NEURO: No speech difficulty. Alert and orientated to person, place, and time. Reviewed pertinent diagnostic tests, lab work, and imaging. These were reviewed with the patient. Laboratory CBC: ABS. NEUTROPHILS Date Value Ref Range Status 12/30/2020 5.25 1.60 - 8.30 x10'3/uL Final WBC Date Value Ref Range Status 12/30/2020 8.0 4.5 - 10.8 x10'3/uL Final HGB Date Value Ref Range Status 12/30/2020 8.8 (L) 12.0 - 16.0 G/DL Final HCT Date Value Ref Range Status 12/30/2020 31.3 (L) 36.0 - 47.0 % Final PLT Date Value Ref Range Status 12/30/2020 86 (L) 150 - 350 x10'3/uL Final ASSESSMENT AND PLAN: 1. Significant iron deficiency anemia with iron studies showing ferritin 2.4/TSAT 3, Hgb 8.8 with low MCV. This is likely related to her menorrhagia. Will arrange for IV Venofer 300 mg q weekly x4 doses. She is not compliant with oral iron tablets. 2. Menorrhagia: She is in the process of finding a new OB-PUBLICIST to provide her care. She is interested in having IUD placed soon. 3. ITP: Platelet counts today 86,000. Continue to monitor. No indication for any treatment. 4. Concern for APLS, since positive ACLA IgM positive in 03/2020 and then in 06/2020. Rheumatology evaluation is pending still. I advised her to start taking aspirin for now. No concern for ATE or VTE. 5. Chronic HCV infection: She completed hepatitis C antiviral treatment and follows with [facility] hepatology team. 6. Polysubstance abuse, IV drug abuse: The patient has quit recreational drugs. 7. RTC in 2 to 3 months with repeat blood tests. Roberta Alex MD CC: Alejandro Blevins MD documented in this encounter Plan of Treatment Upcoming Encounters Date Type Department Care Team (Late st Contact Info) Description 09/25/2024 11:30 AM C IRON WORKER Appointment [facility] [address] [place] [address] Roberta Alex MD [address] [place] [id number] 09/25/2024 11:40 AM C IRON WORKER Office Visit [facility] [address] [place] [address] Roberta Alex MD [address] [place] [id number] documented as of this encounter Visit Diagnoses Diagnosis Thrombocytopenia (CMS/HCC)- Primary Thrombocytopenia, unspecified Iron deficiency anemia due to chronic blood loss Iron deficiency anemia secondary to blood loss (chronic) Anti-cardiolipin antibody positive Other and unspecified nonspecific immunological findings documented in this encounter Care Teams Soil Sampler Relationship Specialty Start Date End Date Alejandro Blevins MD PCP - General FAMILY PRACTICE 12/10/19 documented as of this encounter
--- OUTSIDE RECORDS SUMMARY | 2024-07-11 05:42 | XMS_ITS | Encounter Summary ---
Author Organization [facility] Address [address] [place] [address]. [place], [place] [id number] [place] [address] Care Team Providers Care Network Field Engineer Name Role Phone Alejandro Blevins MD Primary Care Provider [phone] Encounter Details Date Type Department Care Team (Latest Contact Info) Description 01/06/2021 Travel Social History Tobacco Use Types Packs/Day Years Used Date Smoking Tobacco: Former Smokeless Tobacco: Current Comments Yes Sex and Gender Information Value Date Recorded Sex Assigned at Not on file Legal Sex Female 11:30 PM LEADED GLASS INSTALLER Gender Identity Female 11/10/2021 3:09 PM CDT [...] Assessment Author Status No 07/30/2020 10:48 PM LEADED GLASS INSTALLER Acti ve * RETIRED Are you blind or do you have serious difficulty seeing, even when wearing glasses? Answer Date of Assessment Author Status No 07/30/2020 10:46 PM LEADED GLASS INSTALLER Acti ve * Do you have serious difficulty walking or climbing stairs? Answer Date of Assessment Author Status No 07/30/2020 10:46 PM LEADED GLASS INSTALLER Nella Le RN Active * Do you have difficulty dressing or bathing? Answer Date of Assessment Author Status No 07/30/2020 10:46 PM LEADED GLASS INSTALLER Nella Le RN Active * Because of [...] st Contact Info) Description 09/25/2024 11:30 AM LEADED GLASS INSTALLER Appointment [place] [id number] [place] [address] Roberta Alex MD [address] [place] [address] 09/25/2024 11:40 AM LEADED GLASS INSTALLER Office Visit [facility] [place] [address] Roberta Alex MD [address] [place] [phone] documented as of this encounter Visit Diagnoses Not on filedocumented in this encounter Care Teams Network Field Engineer Relationship Specialty Start Date End Date Alejandro Blevins MD PCP - General FAMILY PRACTICE 12/10/19 documented as of this encounter
--- OUTSIDE RECORDS SUMMARY | 2024-07-11 05:42 | XMS_ITS | Encounter Summary ---
Author Organization [facility] Address [address] [place] [address]. [place] [address] [place] [address] Care Team Providers Care Hardware Test Engineer Name Role Phone Alejandro Blevins MD Primary Care Provider [phone] Reason for Visit * Reason Comments Follow Up Encounter Details Date Type Department Care Team (Late st Contact Info) Description 09/09/2020 10:40 AM LENS FABRICATING MACHINE TENDER Office Visit [address] [place] [address] Roberta Alex MD [address] [place] [address] Follow Up Social History Tobacco Use Types Packs/Day Years Used Date Smoking Tobacco: Former Smokeless Tobacco: Current Comments Yes Sex and Gender Information Value Date Recorded Sex Assigned at Not on file Legal Sex Female 11:30 PM LENS FABRICATING MACHINE TENDER Gender Identity Female 11/10/2021 3:09 PM CDT Sexual Orientation Straight 11/10/2021 3: 09 PM CDT COVID-19 Exposure Response Date Recorded In the last month, have you been in contact with someone who was confirmed or suspected to have Coronavirus / COVID-19? No / Unsure 09/09/2020 11:08 AM LENS FABRICATING MACHINE TENDER documented as of this encounter Last Filed Vital Signs Vital Sign Reading Time Taken Comments Blood Pressure 109/69 09/09/2020 11:29 AM LENS FABRICATING MACHINE TENDER Pulse 83 09/09/2020 11:29 AM LENS FABRICATING MACHINE TENDER Temperature 36.2 ??C (97.2 ??F) 09/09/2020 11:[address] Respiratory Rate 18 09/09/2020 11:29 AM LENS FABRICATING MACHINE TENDER Oxygen Saturation - - Inhaled Oxygen Concentration - - Weight 64.2 kg (141 lb 8.6 oz) 09/09/2020 11:29 AM LENS FABRICATING MACHINE TENDER Height 165.1 cm (5' 5 ) 09/09/2020 11:29 AM LENS FABRICATING MACHINE TENDER Body Mass Index 23.55 09/09/2020 11:29 AM LENS FABRICATING MACHINE TENDER documented in this encounter Functional Status * RETIRED Are you deaf or do you have serious difficulty hearing Answer Date of Assessment Author Status No 07/30/2020 10:48 PM LENS FABRICATING MACHINE TENDER Acti ve * RETIRED Are you blind or do you have serious difficulty seeing, even when wearing glasses? Answer Date of Assessment Author Status No 07/30/2020 10:46 PM LENS FABRICATING MACHINE TENDER Acti ve * Do you have serious difficulty walking or climbing stairs? Answer Date of Assessment Author Status No 07/30/2020 10:46 PM LENS FABRICATING MACHINE TENDER Nella Le RN Active * Do you have difficulty dressing or bathing? Answer Date of Assessment Author Status No 07/30/2020 10:46 PM LENS FABRICATING MACHINE TENDER Nella Le RN Active * Because of a physical, mental, or emotional condition, do you have difficulty doing errands alone such as visiting a doctor's office or shopping? Answer Date of Assessment Author Status No 07/30/2020 10:46 PM LENS FABRICATING MACHINE TENDER Nella Le RN Active documented as of this encounter Mental Status * Because of a physical, mental, or emotional condition, do you have serious difficulty concentrating, remembering, or making decisions? Answer Entry Date Author Status No 07/30/2020 10:46 PM Nella Leonardo RN Active documented in this encounter Progress Notes * Roberta Alex MD - 09/09/2020 10:40 AM CST Hematology/Oncology Note Identifying Data Hillary Smalls is a 30-year-old female Reason for Visit: Follow Up History of Present Illness: Hillary Smalls is a 30-year-old female with hx of polysubstance abuse who follows with us for ITP, severe iron deficiency, B12 deficiency since 11/2019. Initially established care with me when she was with twins at 20 weeks gestation and had no care. During , her platelet counts were ranging around 40-50 K and was maintained on close observation with plans to provide dexamethasone when she was close to delivery. However unfortunately she developed placental abruption related PPH, hemorrhagic shock requiring intubation and multiple blood products in 03/2020.Her platelets had improved to normal range with Solu-Medrol 1 g, IVIG to normal range at that time.She then developed slow decline with platelet counts to antonio of 26K in 06/2020. Counts did not improve with Dexamethasone and later responded with IVIG and dex to normal ranges in 07/2020. Around this time, she was initiated on anti viral treatment for Hepatitis C. Again slow decline to 49K in 08/2020, slow taper of steroids was provided along with N- plate 1mcg/kg on 08/26 with good improvement in platelet counts. Today she returns for follow up. Denied any mucosal bleeding. Gaining weight. Appetite normal. She is coming off of her heavy menstrual cycle. Beulah tired and weak for the first 2 days- when it was heavy, now she is minimally spotting. Hematology history: 1. 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 Dick Bonilla 5 years ago. - 11/2019- 03/2020: During twin - Maintained on observation. Complicated with PPH due to placental abruption - 06/2020: No improvement with Dexmathasone - 07/2020: Improvement with IVIG and Dexamethasone with slow prednisone taper. Anticipate improvement in ITP if this is related to the hepatitis C infection. Currently rituximab was defered though this is not an absolute contraindication in hepatitis C infection. Splenectomy janis high risk due to history of polysubstance abuse and risk of infections. - 08/2020: Added N plate q weekly. Received only 1 dose. Platelets improved to normal range 2. Iron deficiency and B12 related anemia: [...] also contraindicated due to low platelet counts ROS General: Fatigue as above Skin: No rash Head: No symptoms Nose/ Sinuses: No Symptoms Mouth and Throat: No Symptoms Neck: No Symptoms Respiratory: As above Cardiac: No Symptoms Gastrointestinal: No symptoms Urinary: : No Symptoms Musculoskeletal: No symptoms Neurologic: No symptoms Hematologic/Lymphatic: No bleeding Pertinent History: Past medical history: Chronic hepatitis [...] file Occupational History ??? Not on file Social Needs ??? Financial resource strain: Not on file ??? Food insecurity Worry: Not on file Inability: Not on file ??? Transportation needs Medical: Not on file Non-medical: Not on file Tobacco Use ??? Smoking status: Former Smoker ??? Smokeless tobacco: Current User Substance and Sexual Activity ??? Alcohol use: Not on file ??? Drug use: Not on file ??? Sexual activity: Not on file Lifestyle ??? Physical activity Days per week: Not on file Minutes per session: Not on file ??? Stress: Not on file Relationships ??? Social connections Talks on phone: Not on file Gets together: Not on file Attends methodist service: Not on file Active member of club or organization: Not on file Attends meetings of clubs or organizations: Not on file Relationship status: Not on file ??? Intimate partner violence Fear of current or ex partner: Not on file Emotionally abused: Not on file Physically abused: Not on file Forced sexual activity: Not on file Other Topics Concern ??? Not on file Social History Narrative ??? Not on file History reviewed. No pertinent surgical history. Current Outpatient Medications Medication Sig Dispense Refill ??? predniSONE 10 mg tablet Take 5 tablets (50 mg total) by mouth daily for 5 days, THEN 4 tablets (40 mg total) daily for 4 days, THEN 3 tablets (30 mg total) daily for 4 days, THEN 2 tablets (20 mgtotal) daily for 4 days, THEN 1 tablet (10 mg total) daily for 4 days, THEN 0.5 tablets (5 mg total) daily for 7 days, THEN 0.5 tablets (5 mg total) every other day for 7 days. 70 tablet 0 ??? Sofosbuvir-Velpatasvir 400-100 MG Tab Take 1 tablet by mouth daily. No current facility-administered medications for this visit. Allergies Allergen Reactions ??? Bee Venom Anaphylaxis ??? Shellfish Allergy Anaphylaxis Patient Active Problem List Diagnosis ??? Anemia ??? Hepatitis C virus infection without hepatic coma ??? Polysubstance abuse (CMS/HCC) ??? Thrombocytopenia affecting (CMS/HCC) ??? Transaminitis ??? Twin ??? Iron deficiency anemia secondary to inadequate dietary iron intake ??? Other dietary vitamin B12 deficiency anemia ??? Chronic ITP (idiopathic thrombocytopenia) (CMS/HCC) ??? Thrombocytopenia (CMS/HCC) ??? Anti-cardiolipin antibody positive Vitals Height: 5' 5 (1.651 m) , Weight: 64.2 kg (141 lb 8.6 oz) , BSA (Calculated - sq m): 1.72 sq meters , BP: 109/69 , Temp: 97.2 ??F (36.2 ??C) , Pulse: 83 , Resp: 18 Physical Exam Constitutional Appears in no acute distress Head and Face Head and face: Normal. Eyes Conjunctiva and lids: No erythema, swelling or discharge. Ears, Nose, Mouth, and Throat Oropharynx: Normal with no erythema, edema, exudate or lesions. Neck Neck:Supple, No enlarged lymph nodes or masses felt Pulmonary Respiratory effort: No increased work of breathing or signs of respiratory distress. Auscultation of lungs: Clear to auscultation. Cardiovascular Auscultation of heart: Normal rate and rhythm, normal S1 and S2, no murmurs. Abdomen Gestation noted. Lymphatic Palpation of lymph nodes in neck: No lymphadenopathy. Musculoskeletal Gait and station: Normal. Neurological Orientation to person, place and time: Normal. Psychiatric Mood and affect: Normal. ?? Laboratory CBC: ABS. NEUTROPHILS Date Value Ref Range Status 09/09/2020 7.49 1.60 - 8.30 x10'3/uL Final WBC Date Value Ref Range Status 09/09/2020 11.1 (H) 4.5 - 10.8 x10'3/uL Final HGB Date Value Ref Range Status 09/09/2020 10.0 (L) 12.0 - 16.0 G/DL Final HCT Date Value Ref Range Status 09/09/2020 32.1 (L) 36.0 - 47.0 % Final PLT Date Value Ref Range Status 09/09/2020 165 150 - 350 x10'3/uL Final Assessment and Plan 1. ITP mostly secondary to HCV infection. She had improvement with IVIG and dexamethasone points towards ITP. - Today platelet improved to 165K with steroid taper and N plate 1mcg/kg on 08/26. Hopefully she willmaintain her platelet counts once completion of Hep C rx next month. - Close monitoring of labs - every 2 weeks. - If platelets drop <50K, then will consider N plate Q weekly. Patient agrees with the plan. 2. Iron deficiency anemia: Ferritin 20. Hgb 10g/DL. Continue oral supplements- with iron and B12. Ptnon compliant. 3. Chronic HCV infection: She is currently on HCV antiviral treatment and follows with [facility] hepatology team. Anticipating improvement in ITP if this is related to secondary HCV. 4. Polysubstance abuse, IVDA, UDS positive for amphetamine. Patient has quit using recreational drugs. Commended on efforts 5. 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 Advised ASA 81mg daily RTC in 6 weeks or sooner if needed. Time Spent: Approximately 25 minutes was spent in direct patient consultation and the majority of that time (>50%) was spent on counseling and coordination of care. Roberta Alex MD CC: Alejandro Blevins MD FABRICATING MACHINE TENDER documented in this encounter Plan of Treatment Upcoming Encounters Date Type Department Care Team (Late st Contact Info) Description 09/25/2024 11:30 AM LENS FABRICATING MACHINE TENDER Appointment [facility] [address] [place] [address] Roberta Alex MD [address] [place] [address] 09/25/2024 11:40 AM LENS FABRICATING MACHINE TENDER Office Visit [facility] [address] [place] [address] Roberta Alex MD [address] [place] [address] documented as of this encounter Visit Diagnoses Diagnosis Thrombocytopenia (CMS/HCC)- Primary Thrombocytopenia, unspecified Chronic ITP (idiopathic thrombocytopenia) (CMS/HCC HHS/HCC) Immune thrombocytopenic purpura Iron deficiency anemia secondary to inadequate dietary iron intake Chronic hepatitis C without hepatic coma (CMS/HCC HHS/HCC) documented in this encounter Care Teams Hardware Test Engineer Relationship Specialty Start Date End Date Alejandro Blevins MD PCP - General FAMILY PRACTICE 12/10/19 documented as of this encounter
--- OUTSIDE RECORDS SUMMARY | 2024-07-11 05:42 | XMS_ITS | Encounter Summary ---
Author Organization [facility] Address [address] [place] [address]. [place], [place] [address] [place] [address] Care Team Providers Care Machine Driller Name Role Phone Alejandro Blevins MD Primary Care Provider [phone] Encounter Details Date Type Department Care Team (Latest Contact Info) Description 10/08/2020 Travel Social History Tobacco Use Types Packs/Day Years Used Date Smoking Tobacco: Former Smokeless Tobacco: Current Comments Yes Sex and Gender Information Value Date Recorded Sex Assigned at Not on file Legal Sex Female 11:30 PM REGISTERED MEDICAL TRANSCRIPTIONIST Gender Identity Female 11/10/2021 3:09 PM CDT [...] Assessment Author Status No 07/30/2020 10:48 PM REGISTERED MEDICAL TRANSCRIPTIONIST Acti ve * RETIRED Are you blind or do you have serious difficulty seeing, even when wearing glasses? Answer Date of Assessment Author Status No 07/30/2020 10:46 PM REGISTERED MEDICAL TRANSCRIPTIONIST Acti ve * Do you have serious difficulty walking or climbing stairs? Answer Date of Assessment Author Status No 07/30/2020 10:46 PM REGISTERED MEDICAL TRANSCRIPTIONIST Nella Le RN Active * Do you [...] st Contact Info) Description 09/25/2024 11:30 AM REGISTERED MEDICAL TRANSCRIPTIONIST Appointment [place] [id number] [facility] [place] [address] Roberta Alex MD [address] [place] [address] 09/25/2024 11:40 AM REGISTERED MEDICAL TRANSCRIPTIONIST Office Visit [facility] [place] [address] Roberta Alex MD [address] [place] [id number] documented as of this encounter Visit Diagnoses Not on filedocumented in this encounter Care Teams Machine Driller Relationship Specialty Start Date End Date Alejandro Blevins MD PCP - General FAMILY PRACTICE 12/10/19 documented as of this encounter
--- OUTSIDE RECORDS SUMMARY | 2024-07-11 05:42 | XMS_ITS | Encounter Summary ---
Author Organization [facility] Address [address] [place] [address]. [place], [place] [address] [place] [address] Care Team Providers Care Button Tufting Machine Operator Name Role Phone Alejandro Blevins MD Primary Care Provider [phone] Encounter Details Date Type Department Care Team (Latest Contact Info) Description 08/19/2020 Travel Social History Tobacco Use Types Packs/Day Years Used Date Smoking Tobacco: Former Smokeless Tobacco: Current Comments Yes Sex and Gender Information Value Date Recorded Sex Assigned at Not on file Legal Sex Female 11:30 PM MOBILE DEVICE DEVELOPER Gender Identity Female 11/10/2021 3:09 PM CDT Sexual Orientation Straight 11/10/2021 3: 09 PM CDT COVID-19 Exposure Response Date Recorded In the last month, have you been in contact with someone who was confirmed or suspected to have Coronavirus / COVID-19? No / Unsure 08/19/2020 8:37 AM MOBILE DEVICE DEVELOPER documented as of this encounter Functional Status * RETIRED Are you deaf or do you have serious difficulty hearing Answer Date of Assessment Author Status No 07/30/2020 10:48 PM MOBILE DEVICE DEVELOPER Acti ve * RETIRED Are you blind or do you have serious difficulty seeing, even when wearing glasses? Answer Date of Assessment Author Status No 07/30/2020 10:46 PM MOBILE DEVICE DEVELOPER Acti ve * Do you have serious difficulty walking or climbing stairs? Answer Date of Assessment Author Status No 07/30/2020 10:46 PM MOBILE DEVICE DEVELOPER Nella Le RN Active * Do you have difficulty dressing or bathing? Answer Date of Assessment Author Status No 07/30/2020 10:46 PM MOBILE DEVICE DEVELOPER Nella Le RN Active * Because of [...] st Contact Info) Description 09/25/2024 11:30 AM MOBILE DEVICE DEVELOPER Appointment [place] [id number] [facility] [address] Roberta Alex MD [address] [place] [address] 09/25/2024 11:40 AM MOBILE DEVICE DEVELOPER Office Visit [facility] [place] [address] Roberta Alex MD [address] [place] [phone] documented as of this encounter Visit Diagnoses Not on filedocumented in this encounter Care Teams Button Tufting Machine Operator Relationship Specialty Start Date End Date Alejandro Blevins MD PCP - General FAMILY PRACTICE 12/10/19 documented as of this encounter
--- OUTSIDE RECORDS SUMMARY | 2024-07-11 05:42 | XMS_ITS | Encounter Summary ---
Author Organization [facility] Address [address] [place] [address]. [place], [place] [address] [place] [address] Care Team Providers Care Wire Tinner Name Role Phone Alejandro Blevins MD Primary Care Provider [phone] Encounter Details Date Type Department Care Team (Latest Contact Info) Description 12/30/2020 Travel Social History Tobacco Use Types Packs/Day Years Used Date Smoking Tobacco: Former Smokeless Tobacco: Current Comments Yes Sex and Gender Information Value Date Recorded Sex Assigned at Not on file Legal Sex Female 11:30 PM MANAGER ANALYTICAL Gender Identity Female 11/10/2021 3:09 PM CDT [...] Author Status No 07/30/2020 10:48 PM MANAGER ANALYTICAL Acti ve * RETIRED Are you blind or do you have serious difficulty seeing, even when wearing glasses? Answer Date of Assessment Author Status No 07/30/2020 10:46 PM MANAGER ANALYTICAL Acti ve * Do you have serious difficulty walking or climbing stairs? Answer Date of Assessment Author Status No 07/30/2020 10:46 PM MANAGER ANALYTICAL Nella Le RN Active * Do you have difficulty dressing or bathing? Answer Date of Assessment Author Status No 07/30/2020 10:46 PM MANAGER ANALYTICAL Nella Le RN Active * Because of [...] Contact Info) Description 09/25/2024 11:30 AM MANAGER ANALYTICAL Appointment [place] [id number] [facility] [place] [address] Roberta Alex MD [address] [place] [address] 09/25/2024 11:40 AM MANAGER ANALYTICAL Office Visit [facility], [id number] [place] [address] Roberta Alex MD [address] [place] [id number] documented as of this encounter Visit Diagnoses Not on filedocumented in this encounter Care Teams Wire Tinner Relationship Specialty Start Date End Date Alejandro Blevins MD PCP - General FAMILY PRACTICE 12/10/19 documented as of this encounter
--- OUTSIDE RECORDS SUMMARY | 2024-07-11 05:42 | XMS_ITS | Encounter Summary ---
Author Organization [facility] Address [address] [place] [address]. [place] [address] [place] [address] Care Team Providers Care Dump Motor Operator Name Role Phone Alejandro Blevins MD Primary Care Provider [phone] Encounter Details Date Type Department Care Team (Latest Contact Info) Description 12/30/2020 3:35 PM CDT - 12/30/2020 11:59 PM CDT Hospital Encounter [address] [place] [address] Roberta Alex MD [address] [place] [address] Discharge Disposition: Home or Self Care (Routine Discharge) Social History Tobacco Use Types Packs/Day Years Used Date Smoking Tobacco: Former Smokeless Tobacco: Current Comments Yes Sex and Gender Information Value Date Recorded Sex Assigned at Not on file Legal Sex Female 11:30 PM DAY LIGHT RELIEF OPERATOR Gender Identity Female 11/10/2021 3:09 PM [...] Assessment Author Status No 07/30/2020 10:48 PM DAY LIGHT RELIEF OPERATOR Acti ve * RETIRED Are you blind or do you have serious difficulty seeing, even when wearing glasses? Answer Date of Assessment Author Status No 07/30/2020 10:46 PM DAY LIGHT RELIEF OPERATOR Acti ve * Do you have [...] st Contact Info) Description 09/25/2024 11:30 AM DAY LIGHT RELIEF OPERATOR Appointment [facility] [address] [place] [address] Roberta Alex MD [address] [place] [address] 09/25/2024 11:40 AM DAY LIGHT RELIEF OPERATOR Office Visit [facility] [address] [place] [address] Roberta Alex MD [address] [place] [address] documented as of this encounter Procedures Procedure Name Priority Date/Time Associated Diagnosis Comments IRON SAT PANEL (IRON,IBC,%SAT) Routine 12/30/2020 4:52 PM CDT Iron deficiency anemia secondary to inadequate dietary iron intake VITAMIN B-12 Routine 12/30/2020 4:52 PM CDT Iron deficiency anemia secondary to inadequate dietary iron intake FERRITIN Routine 12/30/2020 4:52 PM CDT Iron deficiency anemia secondary to inadequate dietary iron intake CBC W/DIFF AUTOMATED Routine 12/30/2020 3:58 PM CDT Thrombocytopenia documented in this encounter Results * VITAMIN B-12 (12/30/2020 4:52 PM CDT) VITAMIN B12 S/P/B 508 193 - 986 PG/ML 12/31/2020 3:36 PM CDT [facility] 12/30/2020 4:52 PM CDT Roberta Alex MD LABORATORY Final Result [facility] [address] [place] [address], [place] [phone] * (ABNORMAL) FERRITIN (12/30/2020 4:52 PM CDT) FERRITIN 2.4(L) 8 - 252 NG/ML 12/30/2020 5:25 PM CDT [facility] 12/30/2020 4:52 PM CDT Roberta Alex MD LABORATORY Final Result [facility] [address] [place] [address], * (ABNORMAL) IRON SATURATION PNL (FE/TIBC/SAT) (12/30/2020 4:52 PM CDT) IRON 11(L) 50 - 170 MCG/DL 12/30/2020 5:16 PM CDT [facility] IRON BINDING CAPACITY 428 250 - 450 MCG/DL 12/30/2020 5:16 PM CDT [facility] IRON SATURATION 3 % 5:16 PM CDT [facility] Comment:REFERENCE RANGE NOT ESTABLISHED 12/30/2020 4:52 PM CDT Roberta Alex MD LABORATORY Final Result [facility] [address] [place] [address], * (ABNORMAL) CBC W/DIFF AUTOMATED (12/30/2020 3:58 PM CDT) Pathologist [facility] WBC 8.0 4.5 - 10.8 x10'3/uL 12/30/2020 4:05 PM CDT [facility] RBC 4.47 4.10 - 5.40 x10'6/uL 12/30/2020 4:05 PM CDT [facility] HGB 8.8(L) 12.0 - 16.0 G/DL 12/30/2020 4:05 PM CDT [facility] HCT 31.3(L) 36.0 - 47.0 % 12/30/2020 4:05 PM CDT [facility] MCV 70.0(L) 78.0 - 100.0 FL 12/30/2020 4:05 PM CDT [facility] MCH 19.7(L) 27.0 - 31.0 PG 12/30/2020 4:05 PM CDT [facility] MCHC 28.1(L) 33.0 - 36.0 G/DL 12/30/2020 4:05 PM CDT [facility] RDW 16.3(H) 11.5 - 14.5 % 12/30/2020 4:05 PM CDT [facility] PLT 86(L) 150 - 350 x10'3/uL 12/30/2020 4:05 PM CDT [facility] MPV RESULTS NOT AVAILABLE 7.4 - 10.4 FL 12/30/2020 4:05 PM CDT [facility] DIFFERENTIAL COMMENT NORMAL REFERENCE RANGE NOT ESTABLISHED FOR THE PROPORTIONAL LEUKOCYTE DIFFERENTIAL. 12/30/2020 4:05 PM CDT [facility] SEG NEUTROPHILS 65.6 % 4:21 PM CDT [facility] LYMPHOCYTES 26.0 % 12/30/2020 4:21 PM CDT [facility] MONOCYTES 5.2 % 12/30/2020 4:21 PM CDT [facility] EOSINOPHILS 2.4 % 12/30/2020 4:21 PM CDT [facility] BASOPHILS 0.6 % 12/30/2020 4:21 PM CDT [facility] IMMATURE GRANS % 0.2 % 12/31/19 4:21 PM CDT [facility] NRBC 0.0 % 12/30/2020 4:21 PM CDT [facility] ABS. NEUTROPHILS 5.25 1.60 - 8.30 x10'3/uL 12/30/2020 4:21 PM CDT [facility] ABS. LYMPHOCYTES 2.08 0.80 - 4.70 x10'3/uL 12/30/2020 4:21 PM CDT [facility] ABS. MONOCYTES 0.42 0.00 - 1.50 x10'3/uL 12/30/2020 4:21 PM CDT [facility] ABS. EOSINOPHILS 0.19 0.00 - 0.40 x10'3/uL 12/30/2020 4:21 PM CDT [facility] ABS. BASOPHILS 0.05 0.00 - 0.20 x10'3/uL 12/30/2020 4:21 PM CDT [facility] ABS. IMMATURE GRANULOCYTES 0.02 0.00 - 0.03 x10'3/uL 12/30/2020 4:21 PM CDT [facility] ABS. NUCLEATED RBC'S 0.00 0.00 x10'3/uL 12/30/2020 4:21 PM CDT [facility] PLT MORPH. DECREASED 12/30/2020 4:21 PM CDT [facility] RBC MORPHOLOGY 1+ 12/30/2020 4:21 PM CDT [facility] Comment: HYPOCHROMASIA 1+ ANISOCYTOSIS 1+ POIKILOCYTOSIS 12/30/2020 3:58 PM CDT Roberta Alex MD LABORATORY Final Result [facility] [address] [place] [address], documented in this encounter Visit Diagnoses Diagnosis Thrombocytopenia (CMS/HCC) Thrombocytopenia, unspecified Iron deficiency anemia secondary to inadequate dietary iron intake documented in this encounter Care Teams Dump Motor Operator Relationship Specialty Start Date End Date Alejandro Blevins MD PCP - General FAMILY PRACTICE 12/10/19 documented as of this encounter
--- OUTSIDE RECORDS SUMMARY | 2024-07-11 05:42 | XMS_ITS | Encounter Summary ---
Author Organization [facility] Address [facility] [place] [address] [place] [address] Care Team Providers Care Student Liaison Officer Name Role Phone Alejandro Blevins MD Primary Care Provider [phone] Encounter Details Date Type Department Care Team (Latest Contact Info) Description 08/12/2020 3:35 PM TOP LIFT NAILER - 08/12/2020 11:59 PM TOP LIFT NAILER Hospital Encounter [address] [place] [address] Roberta Alex MD [address] [place] [address] Discharge Disposition: Home or Self Care (Routine Discharge) Social History Tobacco Use Types Packs/Day Years Used Date Smoking Tobacco: Former Smokeless Tobacco: Current Comments Yes Sex and Gender Information Value Date Recorded Sex Assigned at Not on file Legal Sex Female 11:30 PM TOP LIFT NAILER Gender Identity Female 11/10/2021 3:09 PM CDT Sexual Orientation Straight 11/10/2021 3: 09 PM CDT COVID-19 Exposure Response Date Recorded In the last month, have you been in contact with someone who was confirmed or suspected to have Coronavirus / COVID-19? No / Unsure 08/12/2020 3:39 PM TOP LIFT NAILER documented as of this encounter Functional Status * RETIRED Are you deaf or do you have serious difficulty hearing Answer Date of Assessment Author Status No 07/30/2020 10:48 PM TOP LIFT NAILER Acti ve * RETIRED Are you blind or do you have serious difficulty seeing, even when wearing glasses? Answer Date of Assessment Author Status No 07/30/2020 10:46 PM TOP LIFT NAILER Acti ve * Do you have serious [...] 10 mg tabletIndications :Chronic ITP (idiopathic thrombocytopenia) ([facility]) Take 5 tablets (50 mg total) by [...] st Contact Info) Description 09/25/2024 11:30 AM TOP LIFT NAILER Appointment [facility] [address] [facility] [facility] [place] [address] Roberta Alex MD [address] [place] [address] 09/25/2024 11:40 AM TOP LIFT NAILER Office Visit [facility] [address] [place] [address] [place] [address] Roberta Alex MD [address] [place] [address] documented as of this encounter Procedures Procedure Name Priority Date/Time Associated Diagnosis Comments CBC W/DIFF AUTOMATED Routine 08/12/2020 3:48 PM TOP LIFT NAILER Chronic ITP (idiopathic thrombocytopenia) ([facility]/HCC [facility]/HCC) Anemia documented in this encounter Results * (ABNORMAL) CBC W/DIFF AUTOMATED (08/12/2020 3:48 PM TOP LIFT NAILER) WBC 7.4 4.5 - 10.8 x10'3/uL 08/12/2020 3:57 PM TOP LIFT NAILER [facility] RBC 4.81 4.10 - 5.40 x10'6/uL 08/12/2020 3:57 PM TOP LIFT NAILER [facility] HGB 13.4 12.0 - 16.0 G/DL 08/12/2020 3:57 PM TOP LIFT NAILER [facility] HCT 42.9 36.0 - 47.0 % 08/12/2020 3:57 PM TOP LIFT NAILER [facility] MCV 89.2 78.0 - 100.0 FL 08/12/2020 3:57 PM TOP LIFT NAILER [facility] MCH 27.9 27.0 - 31.0 PG 08/12/2020 3:57 PM [facility] MCHC 31.2(L) 33.0 - 36.0 G/DL 08/12/2020 3:57 PM TOP LIFT NAILER [facility] RDW 13.9 11.5 - 14.5 % 08/12/2020 3:57 PM TOP LIFT NAILER [facility] PLT 89(L) 150 - 350 x10'3/uL 08/12/2020 3:57 PM [facility] MPV 12.8(H) 7.4 - 10.4 FL 08/12/2020 3:57 PM [facility] DIFFERENTIAL COMMENT NORMAL REFERENCE RANGE NOT ESTABLISHED FOR THE PROPORTIONAL LEUKOCYTE DIFFERENTIAL. 08/12/2020 3:57 PM [facility] SEG NEUTROPHILS 51.0 % 4:29 PM [facility] LYMPHOCYTES 33.0 % 08/12/2020 4:29 PM [facility] MONOCYTES 5.4 % 08/12/2020 4:29 PM [facility] EOSINOPHILS 9.4 % 08/12/2020 4:29 PM [facility] BASOPHILS 0.9 % 08/12/2020 4:29 PM [facility] IMMATURE GRANS % 0.3 % 08/12/19 4:29 PM [facility] NRBC 0.0 % 08/12/2020 4:29 PM [facility] ABS. NEUTROPHILS 3.77 1.60 - 8.30 x10'3/uL 08/12/2020 4:29 PM [facility] ABS. LYMPHOCYTES 2.44 0.80 - 4.70 x10'3/uL 08/12/2020 4:29 PM [facility] ABS. MONOCYTES 0.40 0.00 - 1.50 x10'3/uL 08/12/2020 4:29 PM [facility] ABS. EOSINOPHILS 0.70(H) 0.00 - 0.40 x10'3/uL 08/12/2020 4:29 PM [facility] ABS. BASOPHILS 0.07 0.00 - 0.20 x10'3/uL 08/12/2020 4:29 PM [facility] ABS. IMMATURE GRANULOCYTES 0.02 0.00 - 0.03 x10'3/uL 08/12/2020 4:29 PM [facility] ABS. NUCLEATED RBC'S 0.00 0.00 x10'3/uL 08/12/2020 4:29 PM [facility] PLT MORPH. DECREASED 08/12/2020 4:29 PM [facility] RBC MORPHOLOGY 1+ 08/12/2020 4:29 PM [facility] Comment:ANISOCYTOSIS 08/12/2020 3:48 PM TOP LIFT NAILER us Roberta Alex MD LABORATORY Final Result [facility] [address] [place] [address], documented in this encounter Visit Diagnoses Diagnosis Chronic ITP (idiopathic thrombocytopenia) ([facility]) Immune thrombocytopenic purpura Anemia Anemia, unspecified documented in this encounter Care Teams Student Liaison Officer Relationship Specialty Start Date End Date Alejandro Blevins MD PCP - General FAMILY PRACTICE 12/10/19 documented as of this encounter
--- OUTSIDE RECORDS SUMMARY | 2024-07-11 05:42 | XMS_ITS | Encounter Summary ---
Author Organization [facility] Address [address] [place] [address]. [place] [address] [place] [address] Care Team Providers Care Medical Collections Name Role Phone Alejandro Blevins MD Primary Care Provider [phone] Encounter Details Date Type Department Care Team (Late st Contact Info) Description 10/10/2020 Orders Only [address] [place] [address] Tejinder Garcia, [facility] Social History Tobacco Use Types Packs/Day Years Used Date Smoking Tobacco: Former Smokeless Tobacco: Current Comments Yes Sex and Gender Information Value Date Recorded Sex Assigned at Not on file Legal Sex Female 11:30 PM WET SUIT GLUER Gender Identity Female 11/10/2021 3:09 PM CDT [...] Assessment Author Status No 07/30/2020 10:48 PM WET SUIT GLUER Acti ve * RETIRED Are you blind or do you have serious difficulty seeing, even when wearing glasses? Answer Date of Assessment Author Status No 07/30/2020 10:46 PM WET SUIT GLUER Acti ve * Do you have serious difficulty walking or climbing stairs? Answer Date of Assessment Author Status No 07/30/2020 10:46 PM WET SUIT GLUER Nella Le RN Active * Do you [...] st Contact Info) Description 09/25/2024 11:30 AM WET SUIT GLUER Appointment [facility] [address] [facility] [address] Roberta Alex MD [address] [place] [address] 09/25/2024 11:40 AM WET SUIT GLUER Office Visit [facility] [address] [place] [address] Roberta Alex MD [address] [place] [address] documented as of this encounter Visit Diagnoses Not on filedocumented in this encounter Care Teams Medical Collections Relationship Specialty Start Date End Date Alejandro Blevins MD PCP - General FAMILY PRACTICE 12/10/19 documented as of this encounter
--- OUTSIDE RECORDS SUMMARY | 2024-07-11 05:42 | XMS_ITS | Encounter Summary ---
Author Organization [facility] Address [address] [place] [address]. [place], [place] [address] [place] [address] Care Team Providers Care Surgical Aides Teacher Name Role Phone Alejandro Blevins MD Primary Care Provider [phone] Encounter Details Date Type Department Care Team (Latest Contact Info) Description 08/07/2020 Travel Social History Tobacco Use Types Packs/Day Years Used Date Smoking Tobacco: Former Smokeless Tobacco: Current Comments Yes Sex and Gender Information Value Date Recorded Sex Assigned at Not on file Legal Sex Female 11:30 PM SUPERVISOR LIQUEFACTION Gender Identity Female 11/10/2021 3:09 PM CDT Sexual Orientation Straight 11/10/2021 3: 09 PM CDT COVID-19 Exposure Response Date Recorded In the last month, have you been in contact with someone who was confirmed or suspected to have Coronavirus / COVID-19? No / Unsure 08/07/2020 8:30 AM SUPERVISOR LIQUEFACTION documented as of this encounter Functional Status * RETIRED Are you deaf or do you have serious difficulty hearing Answer Date of Assessment Author Status No 07/30/2020 10:48 PM SUPERVISOR LIQUEFACTION Acti ve * RETIRED Are you blind or do you have serious difficulty seeing, even when wearing glasses? Answer Date of Assessment Author Status No 07/30/2020 10:46 PM SUPERVISOR LIQUEFACTION Acti ve * Do you have serious difficulty walking or climbing stairs? Answer Date of Assessment Author Status No 07/30/2020 10:46 PM SUPERVISOR LIQUEFACTION Nella Le RN Active * Do you have difficulty dressing or bathing? Answer Date of Assessment Author Status No 07/30/2020 10:46 PM SUPERVISOR LIQUEFACTION Nella Le RN Active * Because of [...] Contact Info) Description 09/25/2024 11:30 AM SUPERVISOR LIQUEFACTION Appointment [place] [id number] [facility] [place] [address] Roberta Alex MD [address] [place] [address] 09/25/2024 11:40 AM SUPERVISOR LIQUEFACTION Office Visit [facility] [place] [address] [address] Roberta Alex MD [address] [place] [address] documented as of this encounter Visit Diagnoses Not on filedocumented in this encounter Care Teams Surgical Aides Teacher Relationship Specialty Start Date End Date Alejandro Blevins MD PCP - General FAMILY PRACTICE 12/10/19 documented as of this encounter
--- OUTSIDE RECORDS SUMMARY | 2024-07-11 05:42 | XMS_ITS | Encounter Summary ---
Author Organization [facility] Address [facility] [place] [address] [place] [address] Care Team Providers Care Seat Cover Cutter Name Role Phone Alejandro Blevins MD Primary Care Provider [phone] Encounter Details Date Type Department Care Team (Latest Contact Info) Description 05/01/2021 1:21 PM CDT Hospital Encounter [facility] [address] [facility] [place] [address] Roberta Alex MD [address] [place], [place] [address] Discharge Disposition: Home or Self Care (Routine Discharge) Social History Tobacco Use Types Packs/Day Years Used Date Smoking Tobacco: Former Smokeless Tobacco: Current Comments No Sex and Gender Information Value Date Recorded Sex Assigned at Not on file Legal Sex Female 11:30 PM CLINIC RECEPTIONIST Gender Identity Female 11/10/2021 3:09 PM CDT [...] Assessment Author Status No 07/30/2020 10:48 PM CLINIC RECEPTIONIST Acti ve * RETIRED Are you blind or do you have serious difficulty seeing, even when wearing glasses? Answer Date of Assessment Author Status No 07/30/2020 10:46 PM CLINIC RECEPTIONIST Acti ve * Do you have serious [...] st Contact Info) Description 09/25/2024 11:30 AM CLINIC RECEPTIONIST Appointment [facility] [address] [place] [address] Roberta Alex MD [address] [place] [address] 09/25/2024 11:40 AM CLINIC RECEPTIONIST Office Visit [facility] [address] [place] [address] Roberta Alex MD [address] [place] [address] documented as of this encounter Procedures Procedure Name Priority Date/Time Associated Diagnosis Comments CBC W/DIFF AUTOMATED Routine 05/01/2021 1:59 PM CDT Chronic ITP (idiopathic thrombocytopenia) ([facility]/HCC [facility]/HCC) documented in this encounter Results * (ABNORMAL) CBC W/DIFF AUTOMATED (05/01/2021 1:59 PM CDT) WBC 7.4 4.0 - 10.8 x10'3/uL 05/01/2021 2:24 PM CDT [facility] RBC 5.02 4.10 - 5.40 x10'6/uL 05/01/2021 2:24 PM CDT [facility] HGB 13.8 12.0 - 16.0 G/DL 05/01/2021 2:24 PM CDT [facility] HCT 44.1 36.0 - 47.0 % 05/01/2021 2:24 PM CDT [facility] MCV 87.8 78.0 - 100.0 FL 05/01/2021 2:24 PM CDT [facility] MCH 27.5 27.0 - 31.0 PG 05/01/2021 2:24 PM CDT [facility] MCHC 31.3(L) 33.0 - 36.0 G/DL 05/01/2021 2:24 PM CDT [facility] RDW 14.2 11.5 - 14.5 % 05/01/2021 2:24 PM CDT [facility] PLT 25(LL) 150 - 350 x10'3/uL 05/01/2021 2:24 PM CDT [facility] Comment: CRITICAL VALUE CALLED TO GISELLA AT 1423 READ BACK AND VERIFIED RESULT CHECKED MPV RESULTS NOT AVAILABLE 7.4 - 10.4 FL 05/01/2021 2:24 PM CDT [facility] DIFFERENTIAL COMMENT NORMAL REFERENCE RANGE NOT ESTABLISHED FOR THE PROPORTIONAL LEUKOCYTE DIFFERENTIAL. 05/01/2021 2:24 PM CDT [facility] SEG NEUTROPHILS 69.4 % 2:57 PM CDT [facility] LYMPHOCYTES 20.0 % 05/01/2021 2:57 PM CDT [facility] MONOCYTES 5.3 % 05/01/2021 2:57 PM CDT [facility] EOSINOPHILS 4.2 % 05/01/2021 2:57 PM CDT [facility] BASOPHILS 1.0 % 05/01/2021 2:57 PM CDT [facility] IMMATURE GRANS % 0.1 % 05/01/20 2:57 PM CDT [facility] NRBC 0.0 % 05/01/2021 2:57 PM CDT [facility] ABS. NEUTROPHILS 5.14 1.60 - 8.30 x10'3/uL 05/01/2021 2:57 PM CDT [facility] ABS. LYMPHOCYTES 1.48 0.80 - 4.70 x10'3/uL 05/01/2021 2:57 PM CDT [facility] ABS. MONOCYTES 0.39 0.00 - 1.50 x10'3/uL 05/01/2021 2:57 PM CDT [facility] ABS. EOSINOPHILS 0.31 0.00 - 0.40 x10'3/uL 05/01/2021 2:57 PM CDT [facility] ABS. BASOPHILS 0.07 0.00 - 0.20 x10'3/uL 05/01/2021 2:57 PM CDT [facility] ABS. IMMATURE GRANULOCYTES 0.01 0.00 - 0.03 x10'3/uL 05/01/2021 2:57 PM CDT [facility] ABS. NUCLEATED RBC'S 0.00 0.00 x10'3/uL 05/01/2021 2:57 PM CDT [facility] PLT MORPH. DECREASED 05/01/2021 2:57 PM CDT [facility] RBC MORPHOLOGY 1+ 05/01/2021 2:57 PM CDT [facility] Comment:ANISOCYTOSIS 05/01/2021 1:59 PM CDT us Roberta Alex MD LABORATORY Final Result [facility] [address] [place] [address], documented in this encounter Visit Diagnoses Diagnosis Chronic ITP (idiopathic thrombocytopenia) (CMS/HCC [facility]/HCC) Immune thrombocytopenic purpura documented in this encounter Care Teams Seat Cover Cutter Relationship Specialty Start Date End Date Alejandro Blevins MD PCP - General FAMILY PRACTICE 12/10/19 documented as of this encounter
--- OUTSIDE RECORDS SUMMARY | 2024-07-11 05:42 | XMS_ITS | Encounter Summary ---
Author Organization [facility] Address [address] [place] [address]. [place] [address] [place] [address] Care Team Providers Care Tube Sizer Operator Name Role Phone Alejandro Blevins MD Primary Care Provider [phone] Reason for Visit * Reason Comments Follow Up Lab Results Encounter Details Date Type Department Care Team (Late st Contact Info) Description 08/12/2020 3:40 PM SURGICAL GARMENT FITTER Office Visit [address] [place] [address] Roberta Alex MD [address] [place] [address] Follow Up; Lab Results Social History Tobacco Use Types Packs/Day Years Used Date Smoking Tobacco: Former Smokeless Tobacco: Current Comments Yes Sex and Gender Information Value Date Recorded Sex Assigned at Not on file Legal Sex Female 11:30 PM SURGICAL GARMENT FITTER Gender Identity Female 11/10/2021 3:09 PM CDT Sexual Orientation Straight 11/10/2021 3: 09 PM CDT COVID-19 Exposure Response Date Recorded In the last month, have you been in contact with someone who was confirmed or suspected to have Coronavirus / COVID-19? No / Unsure 08/12/2020 3:39 PM SURGICAL GARMENT FITTER documented as of this encounter Last Filed Vital Signs Vital Sign Reading Time Taken Comments Blood Pressure 100/68 08/12/2020 4:03 PM SURGICAL GARMENT FITTER Pulse 93 08/12/2020 4:03 PM SURGICAL GARMENT FITTER Temperature 36.2 ??C (97.2 ??F) 08/12/2020 4:03 PM CS T Respiratory Rate 24 08/12/2020 4:03 PM SURGICAL GARMENT FITTER Oxygen Saturation - - Inhaled Oxygen Concentration - - Weight 60.5 kg (133 lb 6.1 oz) 08/12/2020 4:03 P M SURGICAL GARMENT FITTER Height 165.1 cm (5' 5 ) 08/12/2020 4:03 PM SURGICAL GARMENT FITTER Body Mass Index 22.2 08/12/2020 4:03 PM SURGICAL GARMENT FITTER documented in this encounter Functional Status * RETIRED Are you deaf or do you have serious difficulty hearing Answer Date of Assessment Author Status No 07/30/2020 10:48 PM SURGICAL GARMENT FITTER Acti ve * RETIRED Are you blind or do you have serious difficulty seeing, even when wearing glasses? Answer Date of Assessment Author Status No 07/30/2020 10:46 PM SURGICAL GARMENT FITTER Acti ve * Do you have serious difficulty walking or climbing stairs? Answer Date of Assessment Author Status No 07/30/2020 10:46 PM SURGICAL GARMENT FITTER Nella Le RN Active * Do you have difficulty dressing or bathing? Answer Date of Assessment Author Status No 07/30/2020 10:46 PM SURGICAL GARMENT FITTER Nella Le RN Active * Because of a physical, mental, or emotional condition, do you have difficulty doing errands alone such as visiting a doctor's office or shopping? Answer Date of Assessment Author Status No 07/30/2020 10:46 PM SURGICAL GARMENT FITTER Nella Le RN Active documented as of this encounter Mental Status * Because of a physical, mental, or emotional condition, do you have serious difficulty concentrating, remembering, or making decisions? Answer Entry Date Author Status No 07/30/2020 10:46 PM Nella Leonardo RN Active documented in this encounter Progress Notes * Roberta Alex MD - 08/12/2020 3:40 PM CST Hematology/Oncology Note Identifying Data Hillary Smalls is a 30-year-old female Reason for Visit: Follow Up and Lab Results History of Present Illness: Hillary Smalls is a 30-year-old female with hx of polysubstance abuse who follows with us for chronic ITP, severe iron deficiency, B12 deficiency since 11/2019. Initially established care with ma when she was with twins at 20 weeks gestation and had no care. 1. ITP: Previously followed with [facility] baling machine tender Dr. Dick Bonilla 5 years ago. - During - she had a combination of ITP and gestational- Platelets around 40K- 50K. She continued with smoking, polysubstance abuse. She had significant vaginal bleeding from placental abruption related PPH, hemorrhagic shock requiring intubation. She received multiple blood products (rapid transfusion protocol )during her hospitalization 7 units PRBC, 4 units FFP, 2 units platelets, 2 units cryoprecipitate. Also for platelets she received Solu- Medrol 1 g IV x3 days, IVIG with good improvement in platelet counts to normal ranges-which points this towards ITP - Slow decline over course of last 2 months. Platelet counts dropped to 27K on 07/08. Ordered Dexamethasone 40mg OD x 4 days. Repeat CBC in 1 week with platelet counts 07/16 at 28K with no bleeding. Patient had not taken Dexamethasone. Emphasized importance. Repeat CBC on 07/28 with counts further decline to 20K. She was hospitalized and was given IVIG and dexamethasone with good improvement in platelet counts to normal range. Plan for Nplatewas made. However this was on hold due to normal platelet count 2. Iron deficiency and B12 related anemia: Work-up for other causes of anemia including hemolytic work-up, Hgb electrophoresis, MARQUITA were negative. Received multiple IV Venofer for severe iron deficiency anemia, B12 supplementation until delivery. Then she was maintained on oral iron, B12 supplements 3. 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 Hx of morbidity. Rheumatology evaluation pending. Unable to start ASA due to fluctuating thrombocytopenia. No concern for ATE/VTE- no indication for full dose anticoagulation and also contraindicated due to low platelet counts Interval history: Today she returns for follow-up. Overall doing well. Platelet count again dropped to 80,000. No bleeding. She is currently working and would like to have some good solution on her platelet counts. Trish discussed about the ITP and in her case secondary due to hepatitis C. ROS General: Fatigue as above Skin: No [...] file Gets together: Not on file Attends anabaptism service: Not on file Active member of [...] Height: 5' 5 (1.651 m) , Weight: 60.5 kg (133 lb 6.1 oz) , BSA (Calculated - sq m): 1.67 sq meters , BP: 100/68 , Temp: 97.2 ??F (36.2 ??C) , Pulse: 93 , Resp: 24 Physical Exam Constitutional Appears in no acute [...] ABS. NEUTROPHILS Date Value Ref Range Status 08/12/2020 3.77 1.60 - 8.30 x10'3/uL Final WBC Date Value Ref Range Status 08/12/2020 7.4 4.5 - 10.8 x10'3/uL Final HGB Date Value Ref Range Status 08/12/2020 13.4 12.0 - 16.0 G/DL Final HCT Date Value Ref Range Status 08/12/2020 42.9 36.0 - 47.0 % Final PLT Date Value Ref Range Status 08/12/2020 89 (L) 150 - 350 x10'3/uL Final Assessment and Plan 1. 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 She had improvement with IVIG and dexamethasone. This points towards ITP. -Repeat platelet count today is again decreased to 89,000 (down from normal ranges 2 weeks back). She is currently on hepatitis C treatment and is compliant. Anticipate improvement in ITP if this is related to the hepatitis C infection. Currently we will hold off on rituximab though this is not an a bsolute contraindication in hepatitis C infection. Splenectomy is a high risk due to history of polysubstance abuse and high risk of infections. -Given improvement with dexamethasone, will slowly put her on prednisone taper until she completes hepatitis C related treatment. If there is persistent thrombocytopenia beyond the HCV treatment or while on prednisone, will consider Nplate. We again discussed about the risks and benefits. Patient agrees with the plan. 2. Iron deficiency anemia: Ferritin 20. Continue oral supplements-with iron and B12 3. Chronic HCV infection: She is currently on HCV antiviral treatment and follows with [facility] hepatology team. Anticipating improvement in ITP if this is related to secondary HCV. 4. Polysubstance abuse, IVDA, UDS positive for amphetamine. Patient has quit using recreational drugs. Commended on efforts 5. 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 Hold ASA due to thrombocytopenia Time Spent: Approximately 25 minutes was spent in direct patient consultation and the majority of that time (>50%) was spent on counseling and coordination of care. Roberta Alex MD CC: Alejandro Blevins MD ICAL GARMENT FITTER documented in this encounter Plan of Treatment Upcoming Encounters Date Type Department Care Team (Late st Contact Info) Description 09/25/2024 11:30 AM SURGICAL GARMENT FITTER Appointment [facility] [address] [place] [address] Roberta Alex MD [address] [place] [address] 09/25/2024 11:40 AM SURGICAL GARMENT FITTER Office Visit [facility] [address] [place] [address] Roberta Alex MD [address] [place] [address] documented as of this encounter Visit Diagnoses Diagnosis Chronic ITP (idiopathic thrombocytopenia) ([facility] HHS/HCC)- Primary Immune thrombocytopenic purpura Iron deficiency anemia, unspecified iron deficiency anemia type Anti-cardiolipin antibody positive Other and unspecified nonspecific immunological findings Other dietary vitamin B12 deficiency anemia Chronic hepatitis C without hepatic coma ([facility] H[facility]/HCC) documented in this encounter Care Teams Tube Sizer Operator Relationship Specialty Start Date End Date Alejandro Blevins MD PCP - General FAMILY PRACTICE 12/10/19 documented as of this encounter
--- OUTSIDE RECORDS SUMMARY | 2024-07-11 05:42 | XMS_ITS | Encounter Summary ---
Author Organization [facility] Address [address] [place] [address]. [place], [place] [id number] [place] [address] Care Team Providers Care Employee Operations Examiner Name Role Phone Alejandro Blevins MD Primary Care Provider [phone] Encounter Details Date Type Department Care Team (Latest Contact Info) Description 08/26/2020 Travel Social History Tobacco Use Types Packs/Day Years Used Date Smoking Tobacco: Former Smokeless Tobacco: Current Comments Yes Sex and Gender Information Value Date Recorded Sex Assigned at Not on file Legal Sex Female 11:30 PM BOOKKEEPING SERVICE SALES AGENT Gender Identity Female 11/10/2021 3:09 PM CDT Sexual Orientation Straight 11/10/2021 3: 09 PM CDT COVID-19 Exposure Response Date Recorded In the last month, have you been in contact with someone who was confirmed or suspected to have Coronavirus / COVID-19? No / Unsure 08/26/2020 9:23 AM BOOKKEEPING SERVICE SALES AGENT documented as of this encounter Functional Status * RETIRED Are you deaf or do you have serious difficulty hearing Answer Date of Assessment Author Status No 07/30/2020 10:48 PM BOOKKEEPING SERVICE SALES AGENT Acti ve * RETIRED Are you blind or do you have serious difficulty seeing, even when wearing glasses? Answer Date of Assessment Author Status No 07/30/2020 10:46 PM BOOKKEEPING SERVICE SALES AGENT Acti ve * Do you have serious difficulty walking or climbing stairs? Answer Date of Assessment Author Status No 07/30/2020 10:46 PM BOOKKEEPING SERVICE SALES AGENT Nella Le RN Active * Do you have difficulty dressing or bathing? Answer Date of Assessment Author Status No 07/30/2020 10:46 PM BOOKKEEPING SERVICE SALES AGENT Nella Le RN Active * Because of [...] st Contact Info) Description 09/25/2024 11:30 AM BOOKKEEPING SERVICE SALES AGENT Appointment [place] [id number] [facility] [address] Roberta Alex MD [address] [place] [phone] 09/25/2024 11:40 AM BOOKKEEPING SERVICE SALES AGENT Office Visit [facility] [place] [address] Roberta Alex MD [address] [place] [phone] documented as of this encounter Visit Diagnoses Not on filedocumented in this encounter Care Teams Employee Operations Examiner Relationship Specialty Start Date End Date Alejandro Blevins MD PCP - General FAMILY PRACTICE 12/10/19 documented as of this encounter
--- OUTSIDE RECORDS SUMMARY | 2024-07-11 05:42 | XMS_ITS | Encounter Summary ---
Author Organization [facility] Address [address] [place] [address]. [place], [place] [address] [place] [address] Care Team Providers Care Human Anatomy Teacher Name Role Phone Alejandro Blevins MD Primary Care Provider [phone] Encounter Details Date Type Department Care Team (Latest Contact Info) Description 09/09/2020 Travel Social History Tobacco Use Types Packs/Day Years Used Date Smoking Tobacco: Former Smokeless Tobacco: Current Comments Yes Sex and Gender Information Value Date Recorded Sex Assigned at Not on file Legal Sex Female 11:30 PM MANUFACTURING JOB TITLES Gender Identity Female 11/10/2021 3:09 PM CDT Sexual Orientation Straight 11/10/2021 3: 09 PM CDT COVID-19 Exposure Response Date Recorded In the last month, have you been in contact with someone who was confirmed or suspected to have Coronavirus / COVID-19? No / Unsure 09/09/2020 11:08 AM MANUFACTURING JOB TITLES documented as of this encounter Functional Status * RETIRED Are you deaf or do you have serious difficulty hearing Answer Date of Assessment Author Status No 07/30/2020 10:48 PM MANUFACTURING JOB TITLES Acti ve * RETIRED Are you blind or do you have serious difficulty seeing, even when wearing glasses? Answer Date of Assessment Author Status No 07/30/2020 10:46 PM MANUFACTURING JOB TITLES Acti ve * Do you have serious difficulty walking or climbing stairs? Answer Date of Assessment Author Status No 07/30/2020 10:46 PM MANUFACTURING JOB TITLES Nella Le RN Active * Do you have difficulty dressing or bathing? Answer Date of Assessment Author Status No 07/30/2020 10:46 PM MANUFACTURING JOB TITLES Nella Le RN Active * Because of [...] Contact Info) Description 09/25/2024 11:30 AM MANUFACTURING JOB TITLES Appointment [place] [id number] [place] [address] Roberta Alex MD [address] [place] [phone] 09/25/2024 11:40 AM MANUFACTURING JOB TITLES Office Visit [facility] [place] [address] Roberta Alex MD [address] [place] [phone] documented as of this encounter Visit Diagnoses Not on filedocumented in this encounter Care Teams Human Anatomy Teacher Relationship Specialty Start Date End Date Alejandro Blevins MD PCP - General FAMILY PRACTICE 12/10/19 documented as of this encounter
--- OUTSIDE RECORDS SUMMARY | 2024-07-11 05:42 | XMS_ITS | Encounter Summary ---
Author Organization [facility] Address [address] [place] [address]. [place] [address] [place] [address] Care Team Providers Care Firer Watertender Name Role Phone Alejandro Blevins MD Primary Care Provider [phone] Reason for Visit * Reason Comments Injection * Treatment/Therapy Plan Authorization (Routine) - Closed Specialty Diagnoses / Procedures Referred By Contac t Referred To Contact Diagnoses Chronic ITP (idiopathic thrombocytopenia) ([facility]) Roberta Alex MD [address] [place] [address] Phone: tel: fax: [facility] [place] [address] Phone: tel: Referral ID Status Reason Start Date Expiration Date Visits Re quested Visits Authorized [id number] Closed 07/31/2020 1 9 Encounter Details Date Type Department Care Team (Latest Contact Info) Description 05/29/2021 10:54 AM CDT - 05/29/2021 11:59 PM T Hospital Encounter [facility] [address] [place] [address] Roberta Alex MD [address] [place], [place] [id number] Injection Discharge Disposition: Home or Self Care (Routine Discharge) Social History Tobacco Use Types Packs/Day Years Used Date Smoking Tobacco: Former Smokeless Tobacco: Current Comments No Sex and Gender Information Value Date Recorded Sex Assigned at Not on file Legal Sex Female 11:30 PM SHIP JOINER Gender Identity Female 11/10/2021 3:09 PM CDT [...] Sign Reading Time Taken Comments Blood Pressure 102/71 05/29/2021 10:57 AM CDT Pulse 74 05/29/2021 10:57 AM CDT Temperature 36.3 ??C (97.3 ??F) 05/29/2021 1 0:57 AM CDT Respiratory Rate 19 05/29/2021 10:5 7 AM CDT Oxygen Saturation 98% 05/29/2021 10: 57 AM CDT Inhaled Oxygen Concentration - - Weight 69.8 kg (153 lb 12.8 oz) 021 10:57 AM CDT Height - - Body Mass Index 27.24 02/24/2021 12:48 PM CDT documented in this encounter Functional Status * RETIRED Are you deaf or do you have serious difficulty hearing Answer Date of Assessment Author Status No 07/30/2020 10:48 PM SHIP JOINER Acti ve * RETIRED Are you blind or do you have serious difficulty seeing, even when wearing glasses? Answer Date of Assessment Author Status No 07/30/2020 10:46 PM SHIP JOINER Acti ve * Do you have serious [...] Date Author Status No 07/30/2020 10:46 PM SHIP JOINER Nella Le RN Active documented in this encounter Progress Notes * Chen Gonzalez - 05/29/2021 11:00 AM CDTEncounter addended by: Chen Gonzalez on: 06/01/2021 4:51 AM Actions taken: Charge Capture section accepted JOINER * Lisette Talbert RN - 05/29/2021 11:00 AM CDT PATIENT ASSESSMENT: Admitted via: Ambulatory Admitted from: Home Planned procedure: Nplate injection Patient information verified by Lisette Talbert RN. Barriers to learning: None Patient identity confirmed - Name and date of , Allergies Verified and Patient/S.O given able to voice fears/concerns LOC: Alert Emotional: Calm Motor Activity: Gait steady Respiratory: Regular and even Circulatory: WDL Nutrition: Tolerated diet well Elimination: Voiding NURSING DIAGNOSIS: Risk of injury GOALS: Patient will be free from signs/symptoms of physical injury documented in this encounter Plan of Treatment Upcoming Encounters Date Type Department Care Team (Late st Contact [facility]) Description 09/25/2024 11:30 AM SHIP JOINER Appointment [facility] [address] [place] [address] Roberta Alex MD [address] [place] [address] 09/25/2024 11:40 AM SHIP JOINER Office Visit [facility] [place] [address] Roberta Alex MD [address] [place] [address] documented as of this encounter Visit Diagnoses Diagnosis Chronic ITP (idiopathic thrombocytopenia) ([facility]/HCC)- Primary Immune thrombocytopenic purpura documented in this encounter Administered Medications Inactive Administered Medications - up to 3 most recent administrations Medication Order MAR Action Action Date Dose Rate Site romiPLOStim (NPLATE) injection 210 mcg 210 mcg (rounded from 209.4 mcg = 3 mcg/kg ? 69.8 kg Treatment plan Recorded weight), Subcutaneous, Once, 1 dose, On Tue05/29/21 at 1130, MAX weekly dose 10 mcg/kg. Adjust the dose of Romiplostim (Nplate) following perscribing information. Hold dose if platelets are >50Indications:Chronic ITP (idiopathic thrombocytopenia) ([facility]) Given 05/29/2021 11:20 AM CDT 210 mcg Left Arm documented in this encounter Care Teams Firer Watertender Relationship Specialty Start Date End Date Alejandro Blevins MD PCP - General FAMILY PRACTICE 12/10/19 documented as of this encounter
--- OUTSIDE RECORDS SUMMARY | 2024-07-11 05:42 | XMS_ITS | Encounter Summary ---
Author Organization [facility] Address [facility] [place] [address] [place] [address] Care Team Providers Care Axle Polisher Name Role Phone Alejandro Blevins MD Primary Care Provider [phone] Reason for Visit * Reason Comments Injection * Injection (Routine) - Closed Specialty Diagnoses / Procedures Referred By Contac t Referred To Contact Diagnoses Chronic ITP (idiopathic thrombocytopenia) ([facility]/HCC [facility]) Misc Procedures ROMIPLOSTIM INJECTION [place] INFUSION/INJECTION Roberta Alex MD Phone: tel: fax: [address] [place] [address] Phone: tel: Referral ID Status Reason Start Date Expiration Date Visits Re quested Visits Authorized [id number] Closed 08/27/2020 04/10/2021 1 81 Encounter Details Date Type Department Care Team (Latest Contact Info) Description 08/27/2020 2:30 PM WEFT STRAIGHTENER - 08/27/2020 11:59 PM WEFT STRAIGHTENER Hospital Encounter [facility] [address] [place] [address] [place] [address] Roberta Alex MD [address] [place] [address] Injection Discharge Disposition: Home or Self Care (Routine Discharge) Social History Tobacco Use Types Packs/Day Years Used Date Smoking Tobacco: Former Smokeless Tobacco: Current Comments Yes Sex and Gender Information Value Date Recorded Sex Assigned at Not on file Legal Sex Female 11:30 PM WEFT STRAIGHTENER Gender Identity Female 11/10/2021 3:09 PM CDT Sexual Orientation Straight 11/10/2021 3: 09 PM CDT COVID-19 Exposure Response Date Recorded In the last month, have you been in contact with someone who was confirmed or suspected to have Coronavirus / COVID-19? No / Unsure 08/27/2020 2:51 PM WEFT STRAIGHTENER documented as of this encounter Last Filed Vital Signs Vital Sign Reading Time Taken Comments Blood Pressure 107/59 08/27/2020 2:58 PM WEFT STRAIGHTENER Pulse 91 08/27/2020 2:58 PM WEFT STRAIGHTENER Temperature - - Respiratory Rate 16 08/27/2020 2:58 PM WEFT STRAIGHTENER Oxygen Saturation 99% 08/27/2020 2:58 PM WEFT STRAIGHTENER Inhaled Oxygen Concentration - - Weight 63.1 kg (139 lb 1.8 oz) 08/27/2020 2:58 P M WEFT STRAIGHTENER Height - - Body Mass Index 23.15 08/12/2020 4:03 PM WEFT STRAIGHTENER documented in this encounter Functional Status * RETIRED Are you deaf or do you have serious difficulty hearing Answer Date of Assessment Author Status No 07/30/2020 10:48 PM WEFT STRAIGHTENER Acti ve * RETIRED Are you blind or do you have serious difficulty seeing, even when wearing glasses? Answer Date of Assessment Author Status No 07/30/2020 10:46 PM WEFT STRAIGHTENER Acti ve * Do you have serious difficulty walking or climbing stairs? Answer Date of Assessment Author Status No 07/30/2020 10:46 PM WEFT STRAIGHTENER Nella Le RN Active * Do you have difficulty dressing or bathing? Answer Date of Assessment Author Status No 07/30/2020 10:46 PM WEFT STRAIGHTENER Nella Le RN Active * Because of [...] 10 mg tabletIndications :Chronic ITP (idiopathic thrombocytopenia) (CMS/HCC [facility]/HCC) Take 5 tablets (50 mg total) by [...] 06/17/2020 01/06/2021 documented as of this encounter Progress Notes * Cecilia Healy - 08/27/2020 2:30 PM CSTEncounter addended by: Cecilia Healy on: 08/29/2020 9:33 AM Actions taken: Charge Capture section accepted STRAIGHTENER * Socorro Kenyon RN - 08/27/2020 2:30 PM CST PATIENT ASSESSMENT: Admitted via: Ambulatory Admitted from: Home Planned procedure: N Plate Patient information verified by SOCORRO KENYON RN. Barriers to learning: None Patient identity confirmed - Name and date of and Allergies Verified LOC: Alert Emotional: Calm Motor Activity: Gait steady Respiratory: Regular and even Circulatory: WDL Nutrition: Tolerated diet well Elimination: Voiding NURSING DIAGNOSIS: Risk of injury GOALS: Patient will be free from signs/symptoms of physical injury STRAIGHTENER documented in this encounter Plan of Treatment Upcoming Encounters Date Type Department Care Team (Late st Contact Info) Description 09/25/2024 11:30 AM WEFT STRAIGHTENER Appointment [facility] [place] [address] Roberta Alex MD [address] [place] [address] 09/25/2024 11:40 AM WEFT STRAIGHTENER Office Visit [facility][note 3] [address] [place] [address] Roberta Alex MD [address] [place] [address] documented as of this encounter Visit Diagnoses Diagnosis Chronic ITP (idiopathic thrombocytopenia) ([facility]/HCC [facility]/HCC)- Primary Immune thrombocytopenic purpura documented in this encounter Administered Medications Inactive Administered Medications - up to 3 most recent administrations Medication Order MAR Action Action Date Dose Rate Site romiPLOStim (NPLATE) injection 60 mcg 60 mcg, Subcutaneous, Once, 1 dose, On Tue08/27/20 at 1545, Maximum dose: 10 mcg/kg/week. Given 08/27/2020 3:25 PM WEFT STRAIGHTENER 60 mcg Left Arm documented in this encounter Care Teams Axle Polisher Relationship Specialty Start Date End Date Alejandro Blevins MD PCP - General FAMILY PRACTICE 12/10/19 documented as of this encounter
--- OUTSIDE RECORDS SUMMARY | 2024-07-11 05:42 | XMS_ITS | Encounter Summary ---
Author Organization [facility] Address [address] [place] [address]. [place] [address] [place] [address] Care Team Providers Care Electrical Line Splicer Name Role Phone Alejandro Blevins MD Primary Care Provider [phone] Reason for Visit * Reason Comments Infusion Therapy * Treatment/Therapy Plan Authorization (Routine) - Closed Specialty Diagnoses / Procedures Referred By Contac t Referred To Contact Diagnoses Iron deficiency anemia due to chronic blood loss Procedures Roberta Wood MD [address] [place] [address] Phone: tel: fax: [facility] [place] [address] Phone: tel: Referral ID Status Reason Start Date Expiration Date Visits Re quested Visits Authorized [id number] Closed 12/31/2020 07/24/2021 1 1 Encounter Details Date Type Department Care Team (Latest Contact Info) Description 01/06/2021 1:21 PM CDT - 01/06/2021 11:59 PM CDT Hospital Encounter [facility] [place] [address] Roberta Alex MD [address] [place] [address] Infusion Therapy Discharge Disposition: Home or Self Care (Routine Discharge) Social History Tobacco Use Types Packs/Day Years Used Date Smoking Tobacco: Former Smokeless Tobacco: Current Comments Yes Sex and Gender Information Value Date Recorded Sex Assigned at Not on file Legal Sex Female 11:30 PM LATEX FASHIONS DESIGNER Gender Identity Female 11/10/2021 3:09 PM CDT [...] Sign Reading Time Taken Comments Blood Pressure 104/66 01/06/2021 1:25 PM CDT Pulse 78 01/06/2021 1:25 PM CDT Temperature 36.5 ??C (97.7 ??F) 01/06/2021 1:25 PM CD T Respiratory Rate 20 01/06/2021 1:25 PM CDT Oxygen Saturation 100% 01/06/2021 1:25 PM CDT Inhaled Oxygen Concentration - - Weight 66.6 kg (146 lb 13.2 oz) 01/06/2021 1:25 PM CDT Height - - Body Mass Index 24.43 12/30/2020 4:08 PM CDT documented in this encounter Functional Status * RETIRED Are you deaf or do you have serious difficulty hearing Answer Date of Assessment Author Status No 07/30/2020 10:48 PM LATEX FASHIONS DESIGNER Acti ve * RETIRED Are you blind or do you have serious difficulty seeing, even when wearing glasses? Answer Date of Assessment Author Status No 07/30/2020 10:46 PM LATEX FASHIONS DESIGNER Acti ve * Do you have serious difficulty walking or climbing stairs? Answer Date of Assessment Author Status No 07/30/2020 10:46 PM LATEX FASHIONS DESIGNER Nella Le RN Active * Do you have difficulty dressing or bathing? Answer Date of Assessment Author Status No 07/30/2020 10:46 PM LATEX FASHIONS DESIGNER Nella Le RN Active * Because of [...] Date Author Status No 07/30/2020 10:46 PM LATEX FASHIONS DESIGNER Nella Le RN Active documented in this encounter Progress Notes * Lara Fox - 01/06/2021 1:30 PM CDTEncounter addended by: Lara Fox on: 01/07/2021 12:53 PM Actions taken: Charge Capture section accepted * Leslie Soriano RN - 01/06/2021 1:30 PM CDT PATIENT ASSESSMENT: Admitted via: Ambulatory Admitted from: Home Planned procedure: Scheduled venofer infusion Patient information verified by LESLIE SORIANO RN. [...] Type Department Care Team (Late st [facility]) Description 09/25/2024 11:30 AM LATEX FASHIONS DESIGNER Appointment [facility] [address] [place] [address] Roberta Alex MD [address] [place] [address] 09/25/2024 11:40 AM LATEX FASHIONS DESIGNER Office Visit [facility] [place] [address] Roberta Alex MD [address] [place] [address] documented as of this encounter Visit Diagnoses [...] at 166.7 mL/hr, Once, 1 dose, On Tue01/06/21 at 1400Indications:Iron deficiency anemia due to chronic blood loss New Bag 01/06/2021 1:52 PM CDT 300 mg 166.7 mL/hr sodium chloride 0.9% bolus infusion SOLN 250 mL 250 mL, Intravenous, Continuous, Starting on Tue01/06/21 at 1400, Until Tue01/08/21 at 0247, Infuse at 10 mL/hr TKO as neededIndications:Iron deficiency anemia due to chronic blood loss New 01/06/2021 1:52 PM CDT 250 mLs 10 mL/hr documented in this encounter Care Teams Electrical Line Splicer Relationship Specialty Start Date End Date Alejandro Blevins MD PCP - General FAMILY PRACTICE 12/10/19 documented as of this encounter
--- OUTSIDE RECORDS SUMMARY | 2024-07-11 05:42 | XMS_ITS | Encounter Summary ---
Author Organization [facility] Address [address] [place] [address]. [place] [address] [place] [address] Care Team Providers Care Marketing Communications Leader Name Role Phone Alejandro Blevins MD Primary Care Provider [phone] Encounter Details Date Type Department Care Team (Latest Contact Info) Description 08/07/2020 8:31 AM SKIN DIVER - 08/07/2020 11:59 PM SKIN DIVER Hospital Encounter [address] [place] [address] Roberta Alex MD [address] [place] [address] Discharge Disposition: Home or Self Care (Routine Discharge) Social History Tobacco Use Types Packs/Day Years Used Date Smoking Tobacco: Former Smokeless Tobacco: Current Comments Yes Sex and Gender Information Value Date Recorded Sex Assigned at Not on file Legal Sex Female 11:30 PM SKIN DIVER Gender Identity Female 11/10/2021 3:09 PM CDT Sexual Orientation Straight 11/10/2021 3: 09 PM CDT COVID-19 Exposure Response Date Recorded In the last month, have you been in contact with someone who was confirmed or suspected to have Coronavirus / COVID-19? No / Unsure 08/07/2020 8:30 AM SKIN DIVER documented as of this encounter Functional Status * RETIRED Are you deaf or do you have serious difficulty hearing Answer Date of Assessment Author Status No 07/30/2020 10:48 PM SKIN DIVER Acti ve * RETIRED Are you blind or do you have serious difficulty seeing, even when wearing glasses? Answer Date of Assessment Author Status No 07/30/2020 10:46 PM SKIN DIVER Acti ve * Do you have serious [...] st Contact Info) Description 09/25/2024 11:30 AM SKIN DIVER Appointment [facility] [address] [place] [place] [address] Roberta Alex MD [address] [place] [address] 09/25/2024 11:40 AM SKIN DIVER Office Visit [facility] [address] [place] [address] Roberta Alex MD [address] [place] [address] documented as of this encounter Procedures Procedure Name Priority Date/Time Associated Diagnosis Comments CBC W/DIFF AUTOMATED Routine 08/07/2020 8:38 AM SKIN DIVER Chronic ITP (idiopathic thrombocytopenia) ([facility]/HCC [facility]) documented in this encounter Results * (ABNORMAL) CBC W/DIFF AUTOMATED (08/07/2020 8:38 AM SKIN DIVER) WBC 10.5 4.5 - 10.8 x10'3/uL 08/07/2020 8:45 AM [facility] RBC 4.67 4.10 - 5.40 x10'6/uL 08/07/2020 8:45 AM [facility] HGB 12.9 12.0 - 16.0 G/DL 08/07/2020 8:45 AM [facility] HCT 41.5 36.0 - 47.0 % 08/07/2020 8:45 AM [facility] MCV 88.9 78.0 - 100.0 FL 08/07/2020 8:45 AM [facility] MCH 27.6 27.0 - 31.0 PG 08/07/2020 8:45 AM [facility] MCHC 31.1(L) 33.0 - 36.0 G/DL 08/07/2020 8:45 AM [facility] RDW 13.8 11.5 - 14.5 % 08/07/2020 8:45 AM [facility] PLT 289 150 - 350 x10'3/uL 08/07/2020 8:45 AM [facility] MPV 11.0(H) 7.4 - 10.4 FL 08/07/2020 8:45 AM [facility] DIFFERENTIAL COMMENT NORMAL REFERENCE RANGE NOT ESTABLISHED FOR THE PROPORTIONAL LEUKOCYTE DIFFERENTIAL. 08/07/2020 8:45 AM [facility] SEG NEUTROPHILS 71.7 % 8:45 AM [facility] LYMPHOCYTES 22.4 % 08/07/2020 8:45 AM [facility] MONOCYTES 5.1 % 08/07/2020 8:45 AM [facility] EOSINOPHILS 0.4 % 08/07/2020 8:45 AM [facility] BASOPHILS 0.2 % 08/07/2020 8:45 AM [facility] IMMATURE GRANS % 0.2 % 08/07/19 21 8:45 AM SKIN DIVER [facility] NRBC 0.0 % 08/07/2020 8:45 AM SKIN DIVER [facility] ABS. NEUTROPHILS 7.54 1.60 - 8.30 x10'3/uL 08/07/2020 8:45 AM SKIN DIVER [facility] ABS. LYMPHOCYTES 2.36 0.80 - 4.70 x10'3/uL 08/07/2020 8:45 AM SKIN DIVER [facility] ABS. MONOCYTES 0.54 0.00 - 1.50 x10'3/uL 08/07/2020 8:45 AM SKIN DIVER [facility] ABS. EOSINOPHILS 0.04 0.00 - 0.40 x10'3/uL 08/07/2020 8:45 AM SKIN DIVER [facility] ABS. BASOPHILS 0.02 0.00 - 0.20 x10'3/uL 08/07/2020 8:45 AM SKIN DIVER [facility] ABS. IMMATURE GRANULOCYTES 0.02 0.00 - 0.03 x10'3/uL 08/07/2020 8:45 AM SKIN DIVER [facility] ABS. NUCLEATED RBC'S 0.00 0.00 x10'3/uL 08/07/2020 8:45 AM [facility] 08/07/2020 8:38 AM SKIN DIVER Roberta Alex MD LABORATORY Final Result [facility] [address] [phone] documented in this encounter Visit Diagnoses Diagnosis Chronic ITP (idiopathic thrombocytopenia) (CMS/HCC [facility]/HCC) Immune thrombocytopenic purpura documented in this encounter Care Teams Marketing Communications Leader Relationship Specialty Start Date End Date Alejandro Blevins MD PCP - General FAMILY PRACTICE 12/10/19 documented as of this encounter
--- OUTSIDE RECORDS SUMMARY | 2024-07-11 05:42 | XMS_ITS | Encounter Summary ---
Author Organization [facility] Address [address] [place] [address]. [place] [address] [place] [address] Care Team Providers Care Buffet Waiter/Waitress Name Role Phone Alejandro Blevins MD Primary Care Provider [phone] Reason for Visit * Reason Comments Injection * Injection (Routine) - Closed Specialty Diagnoses / Procedures Referred By Contac t Referred To Contact [facility] Infusion Therapy Diagnoses Nplate Procedures ROMIPLOSTIM INJECTION NURSE [place] [address] [place] [address] Phone: tel: [facility] [address] [place] [address] Phone: tel: Referral ID Status Reason Start Date Expiration Date Visits Re quested Visits Authorized [id number] Closed 04/27/2021 10/25/2021 1 1 Encounter Details Date Type Department Care Team (Latest Contact Info) Description 05/01/2021 1:22 PM CDT - 05/01/2021 11:59 PM T Hospital Encounter [facility] [address] [place] [id number] Roberta Alex MD [address] [place] [address] Injection Discharge Disposition: Home or Self Care (Routine Discharge) Social History Tobacco Use Types Packs/Day Years Used Date Smoking Tobacco: Former Smokeless Tobacco: Current Comments No Sex and Gender Information Value Date Recorded Sex Assigned at Not on file Legal Sex Female 11:30 PM WELDER APPRENTICE Gender Identity Female 11/10/2021 3:09 PM CDT [...] Sign Reading Time Taken Comments Blood Pressure 111/77 05/01/2021 1:26 PM CDT Pulse 88 05/01/2021 1:26 PM CDT Temperature 36.2 ??C (97.2 ??F) 05/01/2021 1:26 PM CD T Respiratory Rate 20 05/01/2021 1:26 PM CDT Oxygen Saturation - - Inhaled Oxygen Concentration - - Weight 68.9 kg (152 lb) 05/01/2021 1:26 PM CDT Height - - Body Mass Index 26.93 02/24/2021 12:48 PM CDT documented in this encounter Functional Status * RETIRED Are you deaf or do you have serious difficulty hearing Answer Date of Assessment Author Status No 07/30/2020 10:48 PM WELDER APPRENTICE Acti ve * RETIRED Are you blind or do you have serious difficulty seeing, even when wearing glasses? Answer Date of Assessment Author Status No 07/30/2020 10:46 PM WELDER APPRENTICE Acti ve * Do you have serious [...] documented in this encounter Progress Notes * Leslie Soriano RN - 05/01/2021 1:45 PM CDTEncounter addended by: Leslie Soriano RN on: 05/01/2021 3:05 PM Actions taken: Flowsheet accepted * Chen Gonzalez - 05/01/2021 1:45 PM CDTEncounter addended by: Chen Gonzalez on: 05/04/2021 5:22 AM Actions taken: Charge Capture section accepted * Leslie Soriano RN - 05/01/2021 1:45 PM CDT PATIENT ASSESSMENT: Admitted via: Ambulatory Admitted from: Home Planned procedure: Nplate injection Patient information verified by LESLIE [...] st Contact Info) Description 09/25/2024 11:30 AM WELDER APPRENTICE [facility]ointment [facility] [place] [address] Roberta Alex MD [address] [place] [address] 09/25/2024 11:40 AM WELDER APPRENTICE Office Visit [facility] [place] [address] Roberta Alex MD [address] [place] [address] documented as of this encounter Visit Diagnoses Diagnosis Chronic ITP (idiopathic thrombocytopenia) ([facility]/HCC [facility])- Primary Immune thrombocytopenic purpura documented in this encounter Administered Medications Inactive Administered Medications - up to 3 most recent administrations Medication Order MAR Action Action Date Dose Rate Site romiPLOStim (NPLATE) injection 70 mcg 70 mcg, Subcutaneous, Once, 1 dose, On Tue05/01/21 at 1445, Maximum dose: 10 mcg/kg/week. Given 05/01/2021 2:40 PM CDT 70 mcg Left Arm documented in this encounter Care Teams Buffet Waiter/Waitress Relationship Specialty Start Date End Date Alejandro Blevins MD PCP - General FAMILY PRACTICE 12/10/19 documented as of this encounter
--- OUTSIDE RECORDS SUMMARY | 2024-07-11 05:42 | XMS_ITS | Encounter Summary ---
Author Organization [facility] Address [address] [place] [address]. [place], [place] [address] [place] [address] Care Team Providers Care Rfid Technician Name Role Phone Alejandro Blevins MD Primary Care Provider [phone] Encounter Details Date Type Department Care Team (Latest Contact Info) Description 10/21/2020 Travel Social History Tobacco Use Types Packs/Day Years Used Date Smoking Tobacco: Former Smokeless Tobacco: Current Comments Yes Sex and Gender Information Value Date Recorded Sex Assigned at Not on file Legal Sex Female 11:30 PM PSYCHIATRIST Gender Identity Female 11/10/2021 3:09 PM CDT [...] Assessment Author Status No 07/30/2020 10:48 PM PSYCHIATRIST Acti ve * RETIRED Are you blind or do you have serious difficulty seeing, even when wearing glasses? Answer Date of Assessment Author Status No 07/30/2020 10:46 PM PSYCHIATRIST Acti ve * Do you have serious difficulty walking or climbing stairs? Answer Date of Assessment Author Status No 07/30/2020 10:46 PM PSYCHIATRIST Nella Le RN Active * Do you have difficulty dressing or bathing? Answer Date of Assessment Author Status No 07/30/2020 10:46 PM PSYCHIATRIST Nella Le RN Active * Because of [...] st Contact Info) Description 09/25/2024 11:30 AM PSYCHIATRIST Appointment [place] [id number] [place] [address] Roberta Alex MD [address] [place] [address] 09/25/2024 11:40 AM PSYCHIATRIST Office Visit [facility] [place] [address] Roberta Alex MD [address] [place] [address] documented as of this encounter Visit Diagnoses Not on filedocumented in this encounter Care Teams Rfid Technician Relationship Specialty Start Date End Date Alejandro Blevins MD PCP - General FAMILY PRACTICE 12/10/19 documented as of this encounter
--- OUTSIDE RECORDS SUMMARY | 2024-07-11 05:42 | XMS_ITS | Encounter Summary ---
Author Organization [facility] Address [address] [place] [address]. [place], [place] [address] [place] [address] Care Team Providers Care Core Winder Machine Operator Name Role Phone Alejandro Blevins MD Primary Care Provider [phone] Reason for Visit * Reason Comments Abdominal Pain Encounter Details Date Type Department Care Team (Late st Contact Info) Description 06/03/2021 2:13 PM GROUND CREW CHIEF - 06/03/2021 3:16 PM GROUND CREW CHIEF Emergency [facility] [address] [facility] [place] [address] Dominick King MD [address] [place] [address] Abdominal Pain Discharge Disposition: Home or Self Care (Routine Discharge) Social History Tobacco Use Types Packs/Day Years Used Date Smoking Tobacco: Former Smokeless Tobacco: Current Comments No Sex and Gender Information Value Date Recorded Sex Assigned at Not on file Legal Sex Female 11:30 PM GROUND CREW CHIEF Gender Identity Female 11/10/2021 3:09 PM CDT Sexual Orientation Straight 11/10/2021 3: 09 PM CDT COVID-19 Exposure Response Date Recorded In the last month, have you been in contact with someone who was confirmed or suspected to have Coronavirus / COVID-19? No / Unsure 06/03/2021 2:13 PM GROUND CREW CHIEF documented as of this encounter Last Filed Vital Signs Vital Sign Reading Time Taken Comments Blood Pressure 113/78 06/03/2021 2:30 PM GROUND CREW CHIEF Pulse 80 06/03/2021 2:17 PM GROUND CREW CHIEF Temperature 37.2 ??C (99 ??F) 06/03/2021 2:17 PM GROUND CREW CHIEF Respiratory Rate 18 06/03/2021 2:17 PM GROUND CREW CHIEF Oxygen Saturation 97% 06/03/2021 2:17 PM GROUND CREW CHIEF Inhaled Oxygen Concentration - - Weight 67.1 kg (148 lb) 06/03/2021 2:17 PM GROUND CREW CHIEF Height 160 cm (5' 3 ) 06/03/2021 2:17 PM GROUND CREW CHIEF Body Mass Index 26.22 06/03/2021 2:17 PM GROUND CREW CHIEF documented in this encounter Functional Status * RETIRED Are you deaf or do you have serious difficulty hearing Answer Date of Assessment Author Status No 07/30/2020 10:48 PM GROUND CREW CHIEF Acti ve * RETIRED Are you blind or do you have serious difficulty seeing, even when wearing glasses? Answer Date of Assessment Author Status No 07/30/2020 10:46 PM GROUND CREW CHIEF Acti ve * Do you have serious difficulty walking or climbing stairs? Answer Date of Assessment Author Status No 07/30/2020 10:46 PM GROUND CREW CHIEF Nella Le RN Active * Do you have difficulty dressing or bathing? Answer Date of Assessment Author Status No 07/30/2020 10:46 PM GROUND CREW CHIEF Nella Le RN Active * Because of [...] cannot be sent through Care Everywhere. * Kidney Infection (Armenian) documented in this encounter Medications at Time [...] 06/03/2021 09/26/2021 documented as of this encounter ED Notes * Emma Jackson RN - 06/03/2021 2:25 PM CST To ED with c/o left side pain for a couple days. States pain is in left mid abdomen, left side and left back at times. ND CREW CHIEF * Dominick King MD - 06/03/2021 2:12 PM CST eMERGENCY dEPARTMENT eNCOUnter CHIEF COMPLAINT Chief Complaint Patient presents with ??? Abdominal Pain HPI HPI Hillary Smalls is a 30-year-old female who presents to the ER with a complaint of left-sided abdominal and flank pain. Patient states she is had urinary tract infections in the past and is been septic from them. With the symptoms started last 24 hours she came to the emergency department to see if she had infection so she can start antibiotics sooner than later. No fevers chills nausea vomiting bowel or bladder symptoms or other complaints. ALLERGIES Allergies Allergen Reactions ??? Bee Venom Anaphylaxis ??? Shellfish Allergy Anaphylaxis CURRENT MEDICATIONS Current Outpatient Medications Medication Sig ??? cephALEXin (KEFLEX) 500 MG capsule Take 1 capsule (500 mg total) by mouth 3 (three) times dailyfor 10 days. ??? HYDROcodone-acetaminophen 5-325 MG tablet Take 1-2 tablets by mouth every 6 (six) hours as needed. Indications: Acute Pain < 3 Day Supply PAST MEDICAL HISTORY Past Medical History: Diagnosis Date ??? Acute ITP (CMS/HCC) ??? Anemia ??? History of blood transfusion ??? Iron deficiency anemia due to chronic blood loss 12/31/2020 SURGICAL HISTORY History reviewed. No pertinent surgical history. SOCIAL HISTORY Social History Socioeconomic History ??? Marital status: [...] file Intimate Partner Violence: Not on file FAMILY HISTORY No family history on file. REVIEW OF SYSTEMS Review of Systems All other ROS negative unless noted above in HPI. PHYSICAL EXAM Physical Exam Filed Vitals: 06/03/21 1415 06/03/21 1417 06/03/21 1430 BP: 113/78 113/78 Pulse: 80 Resp: 18 Temp: 99 ??F (37.2 ??C) TempSrc: Temporal SpO2: 97% 97% Weight: 67.1 kg (148 lb) Height: 5' 3 (1.6 m) The patient is a well developed and well nourished adult female in no distress, alert and oriented. HEENT: PERRL, EOMI Throat without lesions, mucous membranes moist NECK: Supple without adenopathy or rigidity CHEST: Respirations are easy and unlabored ABD: Soft, NABS, non tender except mildly in left lateral abdomen and left CVA EXT: No clubbing, cyanosis, edema NEURO: CN II-XII intact, no focal weakness EKG RADIOLOGY No orders to display LABS Results for orders placed or performed during the hospital encounter of 06/03/21 URINALYSIS WI REFLEX TO CULTURE Specimen: URINE, CLEAN CATCH Result Value Ref Range COLOR (U) YELLOW TRANSPARENCY CLEAR Specific [place] (U) 1.025 1.000 - 1.025 U PH 7.0 5.0 - 8.0 LEUKOCYTE ESTERASE NEGATIVE NEGATIVE NITRITES POSITIVE (A) NEGATIVE PROTEIN (U) NEGATIVE NEGATIVE URINE GLUCOSE NEGATIVE NEGATIVE U KETONES NEGATIVE NEGATIVE UROBILINOGEN 1.0 (H) <1.0 EU/DL BILIRUBIN (U) NEGATIVE NEGATIVE BLOOD NEGATIVE NEGATIVE WBC/HPF 0-5 0 - 5 /HPF EPI/HPF FEW /LPF BACTERIA (URINE) 2+ /HPF MUCUS PRESENT CULTURE & SENSITIVITY INDICATED? SPECIMEN SETUP FOR CULTURE TEST URINE Result Value Ref Range PREG TEST NEGATIVE Specific [place] (U) 1.025 ED MEDICATIONS Medications - No data to display PROCEDURES Procedures CONSULTS: ED COURSE & MEDICAL DECISION MAKING MDM Work-up shows some urinary tract infection. With patient's history this is likely causing her symptoms so we will initiate antibiotics with some pain medication recommend close outpatient follow-up while culturing the urine. FINAL IMPRESSION SNOMED CT(R) 1. Pyelonephritis PYELONEPHRITIS Alejandro Blevins MD [address] [facility] [id number] In 2 days If symptoms worsen Discharge Medication List as of 06/03/2021 3:12 PM START taking these medications Details cephALEXin (KEFLEX) 500 MG capsule Take 1 capsule (500 mg total) by mouth 3 (three) times daily for10 days., Starting Tue06/03/2021, Until 06/13/2021, Eprescribe HYDROcodone-acetaminophen 5-325 MG tablet Take 1-2 tablets by mouth every 6 (six) hours as needed. Indications: Acute Pain < 3 Day Supply, Starting Tue06/03/2021, Eprescribe Dominick King MD 06/03/21 1521 ND CREW CHIEF documented in this encounter Plan of Treatment Upcoming Encounters Date Type Department Care Team (Late st Contact Info) Description 09/25/2024 11:30 AM GROUND CREW CHIEF Appointment [facility] [place] [address] Roberta Alex MD [address] [place] [address] 09/25/2024 11:40 AM GROUND CREW CHIEF Office Visit [facility] [place] [address] Roberta Alex MD [address] [place] [address] documented as of this encounter Procedures Procedure Name Priority Date/Time Associated Diagnosis Comments URINALYSIS WI REFLEX TO CULTURE STAT 06/03/2021 2:40 PM GROUND CREW CHIEF TEST URINE STAT 06/03/2021 2:40 PM GROUND CREW CHIEF URINE BACTERIA CULTURE Routine 06/03/2021 2:40 PM GROUND CREW CHIEF documented in this encounter Results * CULTURE URINE (06/03/2021 2:40 PM GROUND CREW CHIEF) SPEC DESCRIPTION URINE CLEAN CATCH 06/03/2021 3:00 PM GROUND CREW CHIEF [facility] SPECIAL REQUESTS NO SPECIAL REQUEST 06/03/2021 3:00 PM GROUND CREW CHIEF [facility] CULTURE RESULT >100,000 CFU/mL ESCHERICHIA COLI 06/05/2021 3:18 PM GROUND CREW CHIEF [facility] CULTURE RESULT >10,000 TO 25,000 CFU/mL METHICILLIN RESISTANT STAPHYLOCOCCUS AUREUS 06/05/2021 3:18 PM GROUND CREW CHIEF [facility] URINE SPECIMEN OBTAINED BY CLEAN CATCH PROCEDURE / Unknown 06/03/2021 2:40 PM GROUND CREW CHIEF 06/03/2021 2:59 PM GROUND CREW CHIEF Narrative Organism Antibiotic Method Susceptibility Escherichia coli AMPICILLIN BERT (VITEK) Sensitive Escherichia coli AMOXICILLIN/CLAVULANIC A BERT (VITEK) Sensitive Escherichia coli AZTREONAM BERT (VITEK) Sensitive Escherichia coli CEFEPIME BERT (VITEK) Sensitive Escherichia coli CEFTRIAXONE BERT (VITEK) Sensitive Escherichia coli CEFAZOLIN BERT (VITEK) Sensitive Escherichia coli CIPROFLOXACIN BERT (VITEK) Sensitive Escherichia coli ESBL BERT (VITEK) NEG: Sensitive Escherichia coli ERTAPENEM BERT (VITEK) Sensitive Escherichia coli NITROFURANTOIN BERT (VITEK) Sensitive Escherichia coli GENTAMICIN BERT (VITEK) Sensitive Escherichia coli IMIPENEM BERT (VITEK) Sensitive Escherichia coli LEVOFLOXACIN BERT (VITEK) Sensitive Escherichia coli MEROPENEM BERT (VITEK) Sensitive Escherichia coli PIPRACIL/TAZO BERT (VITEK) Sensitive Escherichia coli TRIMETH-SULFAMETH. BERT (VITEK) Sensitive Escherichia coli TETRACYCLINE BERT (VITEK) Sensitive Methicillin resistant staphylococcus aureus NITROFURANTOIN BERT (VITEK) Sensitive Methicillin resistant staphylococcus aureus GENTAMICIN BERT (VITEK) Sensitive Methicillin resistant staphylococcus aureus OXACILLIN BERT (VITEK) Resistant Methicillin resistant staphylococcus aureus PENICILLIN G BERT (VITEK) Resistant Methicillin resistant staphylococcus aureus RIFAMPIN BERT (VITEK) Sensitive Methicillin resistant staphylococcus aureus TRIMETH-SULFAMETH. BERT (VITEK) Sensitive Methicillin resistant staphylococcus aureus TETRACYCLINE BERT (VITEK) Sensitive Methicillin resistant staphylococcus aureus TIGECYCLINE BERT (VITEK) Sensitive Methicillin resistant staphylococcus aureus VANCOMYCIN BERT (VITEK) Sensitive Dominick King MD MICROBIOLOGY - GENERAL ORDERA BLES Final Result [facility] [address] [place] [address], [place] [phone] [id number] [facility] [address] [place] [address], [place] [phone] * TEST URINE (06/03/2021 2:40 PM GROUND CREW CHIEF) PREG TEST NEGATIVE 06/03/2021 2:53 PM GROUND CREW CHIEF [facility] SPECIFIC GRAVITY (U) 1.025 06/03/2021 2:53 PM GROUND CREW CHIEF [facility] URINE SPECIMEN OBTAINED BY CLEAN CATCH PROCEDURE / Unknown 06/03/2021 2:40 PM GROUND CREW CHIEF Dominick King MD URINE ORDERABLES Final Result Performing Organization Address City/[facility]/ZIP Co de Phone Number [facility] [address] [place] [address], [place] [phone] * (ABNORMAL) URINALYSIS WI REFLEX TO CULTURE (06/03/2021 2:40 PM GROUND CREW CHIEF) COLOR (U) YELLOW 06/03/2021 2:58 PM GROUND CREW CHIEF [facility] TRANSPARENCY CLEAR 06/03/2021 2:58 PM GROUND CREW CHIEF [facility] SPECIFIC GRAVITY (U) 1.025 1.000 - 1.025 06/03/2021 2:58 PM GROUND CREW CHIEF [facility] U PH 7.0 5.0 - 8.0 06/03/2021 2:58 PM GROUND CREW CHIEF [facility] LEUKOCYTES (U) NEGATIVE NEGATIVE 06/03/2021 2:58 PM GROUND CREW CHIEF [facility] NITRITES POSITIVE(A) NEGATIVE 06/03/2021 2:58 PM GROUND CREW CHIEF [facility] PROTEIN (U) NEGATIVE NEGATIVE 06/03/2021 2:58 PM GROUND CREW CHIEF [facility] URINE GLUCOSE NEGATIVE NEGATIVE 06/03/2021 2:58 PM GROUND CREW CHIEF [facility] KETONES MG/DL (U) NEGATIVE NEGATIVE 06/03/2021 2:58 PM GROUND CREW CHIEF [facility] UROBILINOGEN 1.0(H) <1.0 EU/DL 06/03/2021 2:58 PM GROUND CREW CHIEF [facility] BILIRUBIN (U) NEGATIVE NEGATIVE 06/03/2021 2:58 PM GROUND CREW CHIEF [facility] BLOOD (U) NEGATIVE NEGATIVE 06/03/2021 2:58 PM GROUND CREW CHIEF [facility] WBC/HPF 0-5 0 - 5 /HPF 06/03/2021 2:58 PM GROUND CREW CHIEF [facility] EPI/HPF FEW /LPF 06/03/2021 2:58 PM GROUND CREW CHIEF [facility] BACTERIA (U) 2+ /HPF 06/03/2021 2:58 PM GROUND CREW CHIEF [facility] MUCUS PRESENT 06/03/2021 2:58 PM GROUND CREW CHIEF [facility] CULTURE & SENSITIVITY INDICATED? SPECIMEN SETUP FOR CULTURE 06/03/2021 2:59 PM GROUND CREW CHIEF [facility] URINE SPECIMEN OBTAINED BY CLEAN CATCH PROCEDURE / Unknown 06/03/2021 2:40 PM GROUND CREW CHIEF Dominick King MD URINE ORDERABLES Final Result [facility] [address] [place] [address], documented in this encounter Visit Diagnoses Diagnosis Pyelonephritis- Primary Pyelonephritis, unspecified documented in this encounter Care Teams Core Winder Machine Operator Relationship Specialty Start Date End Date Alejandro Blevins MD PCP - General FAMILY PRACTICE 12/10/19 documented as of this encounter
--- OUTSIDE RECORDS SUMMARY | 2024-07-11 05:42 | XMS_ITS | Encounter Summary ---
Author Organization [facility] Address [address] [place] [address]. [place], [place] [address] [place] [address] Care Team Providers Care Shook Splicer Name Role Phone Alejandro Blevins MD Primary Care Provider [phone] Encounter Details Date Type Department Care Team (Latest Contact Info) Description 05/08/2021 Travel Social History Tobacco Use Types Packs/Day Years Used Date Smoking Tobacco: Former Smokeless Tobacco: Current Comments No Sex and Gender Information Value Date Recorded Sex Assigned at Not on file Legal Sex Female 11:30 PM PSYCHIATRIC TECHNICIAN ASSISTANT Gender Identity Female 11/10/2021 3:09 PM [...] Assessment Author Status No 07/30/2020 10:48 PM PSYCHIATRIC TECHNICIAN ASSISTANT Acti ve * RETIRED Are you blind or do you have serious difficulty seeing, even when wearing glasses? Answer Date of Assessment Author Status No 07/30/2020 10:46 PM PSYCHIATRIC TECHNICIAN ASSISTANT Acti ve * Do you have serious difficulty walking or climbing stairs? Answer Date of Assessment Author Status No 07/30/2020 10:46 PM PSYCHIATRIC TECHNICIAN ASSISTANT Nella Le RN Active * Do you have difficulty dressing or bathing? Answer Date of Assessment Author Status No 07/30/2020 10:46 PM PSYCHIATRIC TECHNICIAN ASSISTANT Nella Le RN Active * Because [...] st Contact Info) Description 09/25/2024 11:30 AM PSYCHIATRIC TECHNICIAN ASSISTANT Appointment [place] [id number] [facility] [place] [address] Roberta Alex MD [address] [place] [address] 09/25/2024 11:40 AM PSYCHIATRIC TECHNICIAN ASSISTANT Office Visit [facility] [place] [address] Roberta Alex MD [address] [place] [id number] documented as of this encounter Visit Diagnoses Not on filedocumented in this encounter Care Teams Shook Splicer Relationship Specialty Start Date End Date Alejandro Blevins MD PCP - General FAMILY PRACTICE 12/10/19 documented as of this encounter
--- OUTSIDE RECORDS SUMMARY | 2024-07-11 05:42 | XMS_ITS | Encounter Summary ---
Author Organization [facility] Address [address] [place] [address]. [place] [address] [place] [address] Care Team Providers Care Nutritional Yeast Supervisor Name Role Phone Alejandro Blevins MD Primary Care Provider [phone] Encounter Details Date Type Department Care Team (Latest Contact Info) Description 08/26/2020 9:25 AM NEW CAR INSPECTOR - 08/26/2020 11:59 PM NEW CAR INSPECTOR Hospital Encounter [address] [place] [address] Roberta Alex MD [address] [place] [address] Discharge Disposition: Home or Self Care (Routine Discharge) Social History Tobacco Use Types Packs/Day Years Used Date Smoking Tobacco: Former Smokeless Tobacco: Current Comments Yes Sex and Gender Information Value Date Recorded Sex Assigned at Not on file Legal Sex Female 11:30 PM NEW CAR INSPECTOR Gender Identity Female 11/10/2021 3:09 PM CDT Sexual Orientation Straight 11/10/2021 3: 09 PM CDT COVID-19 Exposure Response Date Recorded In the last month, have you been in contact with someone who was confirmed or suspected to have Coronavirus / COVID-19? No / Unsure 08/26/2020 9:23 AM NEW CAR INSPECTOR documented as of this encounter Functional Status * RETIRED Are you deaf or do you have serious difficulty hearing Answer Date of Assessment Author Status No 07/30/2020 10:48 PM NEW CAR INSPECTOR Acti ve * RETIRED Are you blind or do you have serious difficulty seeing, even when wearing glasses? Answer Date of Assessment Author Status No 07/30/2020 10:46 PM NEW CAR INSPECTOR Acti ve * Do you have [...] 10 mg tabletIndications :Chronic ITP (idiopathic thrombocytopenia) ([facility]) Take 5 tablets (50 mg [...] st Contact Info) Description 09/25/2024 11:30 AM NEW CAR INSPECTOR Appointment [facility] [address] [facility] [place] [address] Roberta Alex MD [address] [place] [address] 09/25/2024 11:40 AM NEW CAR INSPECTOR Office Visit [facility] [facility] [place] [address] Roberta Alex MD [address] [place] [address] documented as of this encounter Procedures Procedure Name Priority Date/Time Associated Diagnosis Comments CBC W/DIFF AUTOMATED Routine 08/26/2020 9:30 AM NEW CAR INSPECTOR Chronic ITP (idiopathic thrombocytopenia) ([facility]) Anemia documented in this encounter Results * (ABNORMAL) CBC W/DIFF AUTOMATED (08/26/2020 9:30 AM NEW CAR INSPECTOR) WBC 7.6 4.5 - 10.8 x10'3/uL 08/26/2020 10:10 AM [facility] RBC 4.81 4.10 - 5.40 x10'6/uL 08/26/2020 10:10 AM [facility] HGB 13.2 12.0 - 16.0 G/DL 08/26/2020 10:10 AM [facility] HCT 42.4 36.0 - 47.0 % 08/26/2020 10:10 AM [facility] MCV 88.1 78.0 - 100.0 FL 08/26/2020 10:10 AM [facility] MCH 27.4 27.0 - 31.0 PG 08/26/2020 10:10 AM [facility] MCHC 31.1(L) 33.0 - 36.0 G/DL 08/26/2020 10:10 AM [facility] RDW 13.8 11.5 - 14.5 % 08/26/2020 10:10 AM [facility] PLT 49(L) 150 - 350 x10'3/uL 08/26/2020 10:10 AM [facility] MPV RESULTS NOT AVAILABLE 7.4 - 10.4 FL 08/26/2020 10:10 AM [facility] DIFFERENTIAL COMMENT NORMAL REFERENCE RANGE NOT ESTABLISHED FOR THE PROPORTIONAL LEUKOCYTE DIFFERENTIAL. 08/26/2020 10:10 AM NEW CAR INSPECTOR [facility] PLT MORPH. DECREASED 08/26/2020 10:10 AM NEW CAR INSPECTOR [facility] RBC MORPHOLOGY 1+ 08/26/2020 10:10 AM NEW CAR INSPECTOR [facility] Comment:ANISOCYTOSIS 08/26/2020 9:30 AM NEW CAR INSPECTOR Roberta Alex MD LABORATORY Final Result [facility] [address] [place] [address], documented in this encounter Visit Diagnoses Diagnosis Chronic ITP (idiopathic thrombocytopenia) ([facility]) Immune thrombocytopenic purpura Anemia Anemia, unspecified documented in this encounter Care Teams Nutritional Yeast Supervisor Relationship Specialty Start Date End Date Alejandro Blevisn MD PCP - General FAMILY PRACTICE 12/10/19 documented as of this encounter
--- OUTSIDE RECORDS SUMMARY | 2024-07-11 05:42 | XMS_ITS | Encounter Summary ---
Author Organization [facility] Address [address] [place] [address]. [place], [place] [address] [place] [address] Care Team Providers Care Firer Diesel Locomotive Name Role Phone Alejandro Blevins MD Primary Care Provider [phone] Encounter Details Date Type Department Care Team (Latest Contact Info) Description 05/01/2021 Travel Social History Tobacco Use Types Packs/Day Years Used Date Smoking Tobacco: Former Smokeless Tobacco: Current Comments No Sex and Gender Information Value Date Recorded Sex Assigned at Not on file Legal Sex Female 11:30 PM SFDC TECHNICAL ARCHITECT Gender Identity Female 11/10/2021 3:09 PM [...] Assessment Author Status No 07/30/2020 10:48 PM SFDC TECHNICAL ARCHITECT Acti ve * RETIRED Are you blind or do you have serious difficulty seeing, even when wearing glasses? Answer Date of Assessment Author Status No 07/30/2020 10:46 PM SFDC TECHNICAL ARCHITECT Acti ve * Do you have serious difficulty walking or climbing stairs? Answer Date of Assessment Author Status No 07/30/2020 10:46 PM SFDC TECHNICAL ARCHITECT Nella Le RN Active * Do you have difficulty dressing or bathing? Answer Date of Assessment Author Status No 07/30/2020 10:46 PM SFDC TECHNICAL ARCHITECT Nella Le RN Active * Because of [...] st Contact Info) Description 09/25/2024 11:30 AM SFDC TECHNICAL ARCHITECT Appointment [place] [id number] [facility] [place] [address] Roberta Alex MD [address] [place] [address] 09/25/2024 11:40 AM SFDC TECHNICAL ARCHITECT Office Visit [facility] [place] [address] Roberta Alex MD [address] [place] [place] [phone] documented as of this encounter Visit Diagnoses Not on filedocumented in this encounter Care Teams Firer Diesel Locomotive Relationship Specialty Start Date End Date Alejandro Blevins MD PCP - General FAMILY PRACTICE 12/10/19 documented as of this encounter
--- OUTSIDE RECORDS SUMMARY | 2024-07-11 05:42 | XMS_ITS | Encounter Summary ---
Author Organization [facility] Address [address] [place] [address]. [place], [place] [address] [place] [address] Care Team Providers Care Script Editor Name Role Phone Alejandro Blevins MD Primary Care Provider [phone] Encounter Details Date Type Department Care Team (Latest Contact Info) Description 08/27/2020 Travel Social History Tobacco Use Types Packs/Day Years Used Date Smoking Tobacco: Former Smokeless Tobacco: Current Comments Yes Sex and Gender Information Value Date Recorded Sex Assigned at Not on file Legal Sex Female 11:30 PM JEEP DRIVER Gender Identity Female 11/10/2021 3:09 PM CDT Sexual Orientation Straight 11/10/2021 3: 09 PM CDT COVID-19 Exposure Response Date Recorded In the last month, have you been in contact with someone who was confirmed or suspected to have Coronavirus / COVID-19? No / Unsure 08/27/2020 2:51 PM JEEP DRIVER documented as of this encounter Functional Status * RETIRED Are you deaf or do you have serious difficulty hearing Answer Date of Assessment Author Status No 07/30/2020 10:48 PM JEEP DRIVER Acti ve * RETIRED Are you blind or do you have serious difficulty seeing, even when wearing glasses? Answer Date of Assessment Author Status No 07/30/2020 10:46 PM JEEP DRIVER Acti ve * Do you have serious difficulty walking or climbing stairs? Answer Date of Assessment Author Status No 07/30/2020 10:46 PM JEEP DRIVER Nella Le RN Active * Do you have difficulty dressing or bathing? Answer Date of Assessment Author Status No 07/30/2020 10:46 PM JEEP DRIVER Nella Le RN Active * Because [...] st Contact Info) Description 09/25/2024 11:30 AM JEEP DRIVER Appointment [place] [id number] [facility] [place] [address] Roberta Alex MD [address] [place] [address] 09/25/2024 11:40 AM JEEP DRIVER Office Visit [facility] [place] [address] Roberta Alex MD [address] [place] [address] 013801 documented as of this encounter Visit Diagnoses Not on filedocumented in this encounter Care Teams Script Editor Relationship Specialty Start Date End Date Alejandro Blevins MD PCP - General FAMILY PRACTICE 12/10/19 documented as of this encounter
--- OUTSIDE RECORDS SUMMARY | 2024-07-11 05:42 | XMS_ITS | Encounter Summary ---
Author Organization [facility] Address [address] [place] [address]. [place], [place] [address] [place] [address] Care Team Providers Care Heating And Ventilating Drafter Name Role Phone Alejandro Blevins MD Primary Care Provider [phone] Encounter Details Date Type Department Care Team (Latest Contact Info) Description 04/23/2021 Travel Social History Tobacco Use Types Packs/Day Years Used Date Smoking Tobacco: Former Smokeless Tobacco: Current Comments No Sex and Gender Information Value Date Recorded Sex Assigned at Not on file Legal Sex Female 11:30 PM MANAGEMENT LEAD Gender Identity Female 11/10/2021 3:09 PM CDT [...] Assessment Author Status No 07/30/2020 10:48 PM MANAGEMENT LEAD Acti ve * RETIRED Are you blind or do you have serious difficulty seeing, even when wearing glasses? Answer Date of Assessment Author Status No 07/30/2020 10:46 PM MANAGEMENT LEAD Acti ve * Do you have serious difficulty walking or climbing stairs? Answer Date of Assessment Author Status No 07/30/2020 10:46 PM MANAGEMENT LEAD Nella eL RN Active * Do you have difficulty dressing or bathing? Answer Date of Assessment Author Status No 07/30/2020 10:46 PM MANAGEMENT LEAD Nella Le RN Active * Because of [...] st Contact Info) Description 09/25/2024 11:30 AM MANAGEMENT LEAD Appointment [place] [address] [place] [address] Roberta Alex MD [address] [place] [address] 09/25/2024 11:40 AM MANAGEMENT LEAD Office Visit [facility] [place] [address] Roberta Alex MD [address] [place] [address]201 documented as of this encounter Visit Diagnoses Not on filedocumented in this encounter Care Teams Heating And Ventilating Drafter Relationship Specialty Start Date End Date Alejandro Blevins MD PCP - General FAMILY PRACTICE 12/10/19 documented as of this encounter
--- OUTSIDE RECORDS SUMMARY | 2024-07-11 05:43 | XMS_ITS | Encounter Summary ---
Author Organization [facility] Address [address] [place] [address]. [place], [place] [address] [place] [address] Care Team Providers Care Director Biology Name Role Phone Alejandro Blevins MD Primary Care Provider [phone] Reason for Visit * Reason Onset Date Comments Lab Results 07/30/2020 Encounter Details Date Type Department Care Team (Late st Contact Info) Description 07/30/[address] [place] [address] Kitty Elizondo development disability specialist Results Social History Tobacco Use Types Packs/Day Years Used Date Smoking Tobacco: Former Smokeless Tobacco: Current Comments Yes Sex and Gender Information Value Date Recorded Sex Assigned at Not on file Legal Sex Female 11:30 PM MANUFACTURERS SERVICE REPRESENTATIVE Gender Identity Female 11/10/2021 3:09 PM CDT Sexual Orientation Straight 11/10/2021 3: 09 PM CDT COVID-19 Exposure Response Date Recorded In the last month, have you been in contact with someone who was confirmed or suspected to have Coronavirus / COVID-19? No / Unsure 07/29/2020 10:35 AM MANUFACTURERS SERVICE REPRESENTATIVE documented as of this encounter Progress Notes * Kitty Elizondo RN - 07/30/2020 10:13 AM CST Patient advised to go to ED for admission to hospital for IVIG administration and platelet transfusion. Notified Clare in ED that patient would be coming in and Dr. Alex to call ED attending. FACTURERS SERVICE REPRESENTATIVE documented in this encounter Plan of Treatment Upcoming Encounters Date Type Department Care Team (Late st Contact Info) Description 09/25/2024 11:30 AM MANUFACTURERS SERVICE REPRESENTATIVE Appointment [facility] [address] Roberta Alex MD [address] [place] [address] 09/25/2024 11:40 AM MANUFACTURERS SERVICE REPRESENTATIVE Office [facility] [place] [address] Roberta Alex MD [address] [place] [address] documented as of this encounter Visit Diagnoses Not on filedocumented in this encounter Care Teams Director Biology Relationship Specialty Start Date End Date Alejandro Blevins MD PCP - General FAMILY PRACTICE 12/10/19 documented as of this encounter
--- OUTSIDE RECORDS SUMMARY | 2024-07-11 05:43 | XMS_ITS | Encounter Summary ---
Author Organization [facility] Address [address] [place] [address]. [place] [address] [place] [address] Care Team Providers Care Black Off Worker Name Role Phone Alejandro Blevins MD Primary Care Provider [phone] Encounter Details Date Type Department Care Team (Latest Contact Info) Description 07/29/2020 10:30 AM BALL THREAD MACHINE TENDER - 07/29/2020 11:31 AM BALL THREAD MACHINE TENDER Hospital Encounter [facility] [address] [place] [address] [place] [address] Roberta Alex MD [address] [place] [address] Discharge Disposition: Home or Self Care (Routine Discharge) Social History Tobacco Use Types Packs/Day Years Used Date Smoking Tobacco: Every Day Smokeless Tobacco: Never Comments Yes Sex and Gender Information Value Date Recorded Sex Assigned at Not on file Legal Sex Female 11:30 PM BALL THREAD MACHINE TENDER Gender Identity Female 11/10/2021 3:09 PM CDT Sexual Orientation Straight 11/10/2021 3: 09 PM CDT COVID-19 Exposure Response Date Recorded In the last month, have you been in contact with someone who was confirmed or suspected to have Coronavirus / COVID-19? No / Unsure 07/29/2020 10:35 AM BALL THREAD MACHINE TENDER documented as of this encounter Medications at Time of Discharge Sofosbuvir-Velpat asvir 400-100 MG Tab Take 1 tablet by mouth daily. 06/17/2020 01/06/2021 documented as of this encounter Plan of Treatment Upcoming Encounters Date Type Department Care Team (Late st Contact Info) Description 09/25/2024 11:30 AM BALL THREAD MACHINE TENDER Appointment [facility] [address] [place] [address] Roberta Alex MD [address] [place], [place] [address] 09/25/2024 11:40 AM BALL THREAD MACHINE TENDER Office Visit [facility] [place] [address] Roberta Alex MD [address] [place], [place] 2667[address] documented as of this encounter Procedures Procedure Name Priority Date/Time Associated Diagnosis Comments ORDER PLATELET PHERESIS Routine 07/29/2020 11:40 AM BALL THREAD MACHINE TENDER Chronic ITP (idiopathic thrombocytopenia) ([facility]) CBC W/DIFF AUTOMATED Routine 07/29/2020 10:43 AM BALL THREAD MACHINE TENDER Chronic ITP (idiopathic thrombocytopenia) ([facility]) Anemia documented in this encounter Results * ORDER PLATELET PHERESIS, 1 Units (07/29/2020 11:40 AM BALL THREAD MACHINE TENDER) UNITS ORDERED 1 07/29/2020 11:41 AM [facility] BLOOD UNIT NUMBER [id number] 07/29/2020 3:31 PM BALL THREAD MACHINE TENDER [facility] PRODUCT: PLT PHERESIS LEUKOPOOR BAG 1 07/29/2020 3:31 PM BALL THREAD MACHINE TENDER [facility] UNIT DIVISION 00 07/29/2020 3:31 PM BALL THREAD MACHINE TENDER [facility] BLOOD UNIT STATUS TRANSFUSED,FINAL 07/31/2020 12:15 AM BALL THREAD MACHINE TENDER [facility] ISSUE DATE/TIME [id number] 12:15 AM [facility] PRODUCT CODE [id number] 07/31/2020 12:15 AM BALL THREAD MACHINE TENDER [facility] ABO/RH Unit A POS 07/31/2020 12:15 AM [facility] ABO/RH UNIT ISBT CODE [id number] 07/31/2020 12:15 AM [facility] BLOOD UNIT EXPIRATION DATE [id number] 07/31/2020 12:15 AM [facility] TRANSFUSION STATUS OK TO TRANSFUSE 07/29/2020 3:31 PM [facility] 07/29/2020 11:4 0 AM BALL THREAD MACHINE TENDER Roberta Alex MD BLOOD BANK PRODUCT ORDERABLES Final Result [facility] [address] [place] [address], * (ABNORMAL) CBC W/DIFF AUTOMATED (07/29/2020 10:43 AM BALL THREAD MACHINE TENDER) WBC 6.9 4.5 - 10.8 x10'3/uL 07/29/2020 10:56 AM [facility] RBC 4.70 4.10 - 5.40 x10'6/uL 07/29/2020 10:56 AM [facility] HGB 13.1 12.0 - 16.0 G/DL 07/29/2020 10:56 AM [facility] HCT 42.7 36.0 - 47.0 % 07/29/2020 10:56 AM [facility] MCV 90.9 78.0 - 100.0 FL 07/29/2020 10:56 AM [facility] MCH 27.9 27.0 - 31.0 PG 07/29/2020 10:56 AM [facility] MCHC 30.7(L) 33.0 - 36.0 G/DL 07/29/2020 10:56 AM [facility] RDW 13.8 11.5 - 14.5 % 07/29/2020 10:56 AM [facility] PLT 20(LL) 150 - 350 x10'3/uL 07/29/2020 10:56 AM [facility] Comment: CRITICAL VALUE CALLED TO TANYA AT 1055 READ BACK AND VERIFIED RESULT CHECKED MPV RESULTS NOT AVAILABLE 7.4 - 10.4 FL 07/29/2020 10:56 AM [facility] DIFFERENTIAL COMMENT NORMAL REFERENCE RANGE NOT ESTABLISHED FOR THE PROPORTIONAL LEUKOCYTE DIFFERENTIAL. 07/29/2020 10:56 AM [facility] SEG NEUTROPHILS 57.1 % 11:19 AM [facility] LYMPHOCYTES 27.2 % 07/29/2020 11:19 AM [facility] MONOCYTES 5.2 % 07/29/2020 11:19 AM [facility] EOSINOPHILS 9.5 % 07/29/2020 11:19 AM [facility] BASOPHILS 0.9 % 07/29/2020 11:19 AM [facility] IMMATURE GRANS % 0.1 % 07/29/19 11:19 AM [facility] NRBC 0.0 % 07/29/2020 11:19 AM [facility] ABS. NEUTROPHILS 3.93 1.60 - 8.30 x10'3/uL 07/29/2020 11:19 AM [facility] ABS. LYMPHOCYTES 1.88 0.80 - 4.70 x10'3/uL 07/29/2020 11:19 AM [facility] ABS. MONOCYTES 0.36 0.00 - 1.50 x10'3/uL 07/29/2020 11:19 AM [facility] ABS. EOSINOPHILS 0.66(H) 0.00 - 0.40 x10'3/uL 07/29/2020 11:19 AM [facility] ABS. BASOPHILS 0.06 0.00 - 0.20 x10'3/uL 07/29/2020 11:19 AM [facility] ABS. IMMATURE GRANULOCYTES 0.01 0.00 - 0.03 x10'3/uL 07/29/2020 11:19 AM [facility] ABS. NUCLEATED RBC'S 0.00 0.00 x10'3/uL 07/29/2020 11:19 AM [facility] PLT MORPH. DECREASED 07/29/2020 11:19 AM BALL THREAD MACHINE TENDER [facility] RBC MORPHOLOGY 1+ 07/29/2020 11:19 AM BALL THREAD MACHINE TENDER [facility] Comment:ANISOCYTOSIS 07/29/2020 10:4 3 AM BALL THREAD MACHINE TENDER us Roberta Alex MD LABORATORY Final Result [facility] [address] [place] [address], documented in this encounter Visit Diagnoses Diagnosis Chronic ITP (idiopathic thrombocytopenia) ([facility]) Immune thrombocytopenic purpura Anemia Anemia, unspecified Iron deficiency anemia secondary to inadequate dietary iron intake documented in this encounter Care Teams Black Off Worker Relationship Specialty Start Date End Date Alejandro Blevins MD PCP - General FAMILY PRACTICE 12/10/19 documented as of this encounter
--- OUTSIDE RECORDS SUMMARY | 2024-07-11 05:43 | XMS_ITS | Encounter Summary ---
Author Organization [facility] Address [address] [place] [address]. [place] [address] [place] [address] Care Team Providers Care Metal Drill Operator Name Role Phone Alejandro Blevins MD Primary Care Provider [phone] Encounter Details Date Type Department Care Team (Latest Contact Info) Description 07/21/2020 Travel Social History Tobacco Use Types Packs/Day Years Used Date Smoking Tobacco: Every Day Smokeless Tobacco: Never Comments Yes Sex and Gender Information Value Date Recorded Sex Assigned at Not on file Legal Sex Female 11:30 PM DIRECTOR LIFE SALES Gender Identity Female 11/10/2021 3:09 PM CDT Sexual Orientation Straight 11/10/2021 3: 09 PM CDT COVID-19 Exposure Response Date Recorded In the last month, have you been in contact with someone who was confirmed or suspected to have Coronavirus / COVID-19? No / Unsure 07/21/2020 12:03 PM DIRECTOR LIFE SALES documented as of this encounter Plan of Treatment Upcoming Encounters Date Type Department Care Team (Late st Contact Info) Description 09/25/2024 11:30 AM DIRECTOR LIFE SALES Appointment [facility] [address] [place] [address] Roberta Alex MD [address] [place] [address] 09/25/2024 11:40 AM DIRECTOR LIFE SALES Office Visit [facility] [address] [place] [address] Roberta Alex MD [address] [place] [address] documented as of this encounter Visit Diagnoses Not on filedocumented in this encounter Care Teams Metal Drill Operator Relationship Specialty Start Date End Date Alejandro Blevins MD PCP - General FAMILY PRACTICE 12/10/19 documented as of this encounter
--- OUTSIDE RECORDS SUMMARY | 2024-07-11 05:43 | XMS_ITS | Encounter Summary ---
Author Organization [facility] Address [address] [place] [address]. [place] [address] [place] [address] Care Team Providers Care Superintendent Ammunition Storage Name Role Phone Alejandro Blevins MD Primary Care Provider [phone] Reason for Visit * Reason Comments Follow Up Lab Results Encounter Details Date Type Department Care Team (Late st Contact Info) Description 05/13/2020 10:40 AM CDT Office Visit [address] [place] [address] Roberta Alex MD [address] [place] [address] Follow Up; Lab Results Social History Tobacco Use Types Packs/Day Years Used Date Smoking Tobacco: Every Day Smokeless Tobacco: Never Comments Yes Sex and Gender Information Value Date Recorded Sex Assigned at Not on file Legal Sex Female 11:30 PM SCARF GLUER Gender Identity Female 11/10/2021 3:09 PM CDT Sexual Orientation Straight 11/10/2021 3: 09 PM CDT COVID-19 Exposure Response Date Recorded In the last month, have you been in contact with someone who was confirmed or suspected to have Coronavirus / COVID-19? Yes 05/13/2020 11:22 AM CDT documented as of this encounter Last Filed Vital Signs Vital Sign Reading Time Taken Comments Blood Pressure 129/87 05/13/2020 12:11 PM CDT Pulse 90 05/13/2020 12:11 PM CDT Temperature 36.9 ??C (98.4 ??F) 05/13/2020 12:11 PM C DT Respiratory Rate 18 05/13/2020 12:11 PM CDT Oxygen Saturation - - Inhaled Oxygen Concentration - - Weight 59.1 kg (130 lb 5 oz) 05/13/2020 12:11 PM CDT Height 165.1 cm (5' 5 ) 05/13/2020 12:11 PM CDT Body Mass Index 21.69 05/13/2020 12:11 PM CDT documented in this encounter Progress Notes * Roberta Alex MD - 05/13/2020 10:40 AM CDT Hematology/Oncology Note Identifying Data Hillary Smalls is a 29-year-old female Reason for Visit: Follow Up and Lab Results History of Present Illness: Hillary Smalls is a 29-year-old female who is been following with us for chronic ITP, severe iron deficiency, B12 deficiency noted in 11/2019 when she was with twins at 20 weeks gestation. Work-up for other causes of anemia were negative including hemolytic work-up, Hgb electrophoresis, MARQUITA. She had no care until fifth month. She followed closely with higher education administrator- conditioning coach Dr Machelle Costello at [facility] in [place]. Patient has history of chronic thrombocytopenia and iron deficiency and followed with [facility] director summer sessions Dr. Dick Bonilla 5 years ago. She was maintained on close observation with her blood counts platelets ranging 40,000, received multiple IV Venofer for severe iron deficiency anemia, B12 supplementation until she went into delivery. She continued with smoking, polysubstance abuse. We had planned on giving steroids prior to delivery or if platelets drop below 30,000, before she had IOL unfortunately she went in with significant vaginal bleeding from placental abruption related PPH, hemorrhagic shock requiring intubation. She received multiple blood products during her hospitalization 7 units PRBC, 4 units FFP, 2 units platelets, 2 units cryoprecipitate. Also for platelets she received Solu- Medrol 1 g IV x3 days, IVIG with good improvement in platelet counts. Today she is here for follow-up on blood counts. Doing well since the last visit. Surgery site looks well-healed. No fevers, no bleeding. She continues to notice spotting which has not changed. She feels stronger. ROS General: Fatigue as above Skin: No rash Head: No symptoms Nose/ Sinuses: No Symptoms Mouth and Throat: No Symptoms Neck: No Symptoms Respiratory: As above Cardiac: No Symptoms Gastrointestinal: No symptoms Urinary: : No Symptoms Musculoskeletal: No symptoms Neurologic: No symptoms Hematologic/Lymphatic: No symptoms Pertinent History: Past medical history: Chronic hepatitis [...] ??? Smoking status: Current Every Day Smoker ??? Smokeless tobacco: Never Used Substance and [...] file Gets together: Not on file Attends temple service: Not on file Active member of [...] Social History Narrative ??? Not on file No past surgical history on file. Current Outpatient Medications Medication Sig Dispense Refill ??? umjooye-sicudirvdwlco-bpchzjhc 250-250-65 MG tablet Take 1 tablet by mouth every 6 (six) hours as needed for Pain. ??? calcium carbonate 500 MG chewable tablet Chew 1 tablet by mouth every 2 (two) hours as needed. ??? ferrous sulfate, 65 mg elemental, 325 (65 FE) MG tablet Take 325 mg by mouth daily. ??? folic acid 1 MG tablet Take 1 mg by mouth daily. ??? vitamin 27-1 MG tablet Take 1 tablet by mouth daily. ??? vitamin B-12 (CYANOCOBALAMIN) 1000 mcg tablet Take 1,000 mcg by mouth daily. No current facility-administered medications [...] ??? Other dietary vitamin B12 deficiency anemia Vitals Height: 5' 5 (1.651 m) , Weight: 59.1 kg (130 lb 5 oz) , BSA (Calculated - sq m): 1.65 sq meters , BP: 129/87 , Temp: 98.4 ??F (36.9 ??C) , Pulse: 90 , Resp: 18 Physical Exam Constitutional Appears [...] ABS. NEUTROPHILS Date Value Ref Range Status 05/13/2020 6.53 1.60 - 8.30 x10'3/uL Final WBC Date Value Ref Range Status 05/13/2020 9.4 4.5 - 10.8 x10'3/uL Final HGB Date Value Ref Range Status 05/13/2020 12.2 12.0 - 16.0 G/DL Final HCT Date Value Ref Range Status 05/13/2020 39.3 36.0 - 47.0 % Final PLT Date Value Ref Range Status 05/13/2020 62 (L) 150 - 350 x10'3/uL Final Assessment and Plan 1. Chronic thrombocytopenia: Secondary to untreated HCV infection, immune mediated, polysubstance abuse, nutritional deficiencies. -Today platelet count at 63,000 with only minor vaginal spotting. No indication for treatment with steroids at this time. Continue to closely monitor blood counts. CBC in 2 weeks and then see me in 2months again. We discussed about the indication for treatments again. Patient agrees with the plan. 2. Iron deficiency anemia, B12 deficiency, folic acid deficiency: -Repeat iron studies show ferritin 400 after multiple blood products, IV Venofer. Continue on oral iron tablets. -S/p B12 1000 mcg IM daily for 7 days. Currently on B12 1000 MCG p.o. Daily. -Continue folic acid supplements 1 g p.o. daily. 3. Chronic HCV infection: Needs follow-up with GI once she remains abstinent from polysubstance abuse for 6 months. 4. Polysubstance abuse, IVDA, UDS positive for amphetamine. Strongly advised on cessation. 6. Positive Anti - Cardiolipin IGM with negative Anti B2 GP IGG/IGM , LA test negative, MARQUITA negative. On low dose ASA 81mg. No indication for anticoagulation given thrombocytopenia. Less likely antiphophopholipid syndrome. Will repeat again in 2 months. If persistently elevated, will need to address APLS Time Spent: Approximately 25 minutes was spent in direct patient consultation and the majority of that time (>50%) was spent on counseling and coordination of care. Roberta Alex MD CC: Alejandro Blevins MD documented in this encounter Plan of Treatment Upcoming Encounters Date Type Department Care Team (Late st Contact Info) Description 09/25/2024 11:30 AM SCARF GLUER Appointment [facility] [address] [place] [address] [place] [address] Roberta Alex MD [address] [place] [address] 09/25/2024 11:40 AM SCARF GLUER Office Visit [facility] [address] [place] [address] [place] [address] Roberta Alex MD [address] [place] [address] documented as of this encounter Visit Diagnoses Diagnosis Chronic ITP (idiopathic thrombocytopenia) ([facility] Primary Immune thrombocytopenic purpura Iron deficiency anemia secondary to inadequate dietary iron intake Other vitamin B12 deficiency anemia documented in this encounter Care Teams Superintendent Ammunition Storage Relationship Specialty Start Date End Date Alejandro Blevins MD PCP - General FAMILY PRACTICE 12/10/19 documented as of this encounter
--- OUTSIDE RECORDS SUMMARY | 2024-07-11 05:43 | XMS_ITS | Encounter Summary ---
Author Organization [facility] Address [address] [place] [address]. [place] [address] [place] [address] Care Team Providers Care Oil Burner Mechanic Name Role Phone Alejandro Blevins MD Primary Care Provider [phone] Encounter Details Date Type Department Care Team (Latest Contact Info) Description 05/13/2020 10:20 AM CDT - 05/13/2020 11:59 PM CDT Hospital Encounter [address] [place] [address] Roberta Alex MD [address] [place], [place] [id number] Discharge Disposition: Home or Self Care (Routine Discharge) Social History Tobacco Use Types Packs/Day Years Used Date Smoking Tobacco: Every Day Smokeless Tobacco: Never Comments Yes Sex and Gender Information Value Date Recorded Sex Assigned at Not on file Legal Sex Female 11:30 PM DIRECTOR PRIVATE MUSIC THERAPY AGENCY Gender Identity Female 11/10/2021 3:09 PM CDT Sexual Orientation Straight 11/10/2021 3: 09 PM CDT COVID-19 Exposure Response Date Recorded In the last month, have you been in contact with someone who was confirmed or suspected to have Coronavirus / COVID-19? Yes 05/13/2020 11:22 AM CDT documented as of this encounter Medications at Time of Discharge aspirin-acetamino phen-caffeine 250-250-65 MG tablet Take 1 tablet by mouth every 6 (six) hours as needed for Pain. 07/29/2020 calcium carbonate 500 MG chewable tablet Chew 1 tablet by mouth every 2 (two) hours as needed. 01/23/2020 07/29/2020 ferrous sulfate, 65 mg elemental, 325 (65 FE) MG tablet Take 325 mg by mouth daily. 12/09/2019 07/29/2020 folic acid 1 MG tablet Take 1 mg by mouth daily. 12/09/2019 07/08/2020 vitamin 27-1 MG tablet Take 1 tablet by mouth daily. 01/23/2020 07/29/2020 vitamin B-12 (CYANOCOBALAMIN) 1000 mcg tablet Take 1,000 mcg by mouth daily. 07/29/2020 documented as of this encounter Plan of Treatment Upcoming Encounters Date Type Department Care Team (Late st Contact Info) Description 09/25/2024 11:30 AM DIRECTOR PRIVATE MUSIC THERAPY AGENCY Appointment [facility] [place] [address] Roberta Alex MD [address] [place] [id number] 09/25/2024 11:40 AM DIRECTOR PRIVATE MUSIC THERAPY AGENCY Office Visit [facility] [place] [address] Roberta Alex MD [address] [place] [phone] documented as of this encounter Procedures Procedure Name Priority Date/Time Associated Diagnosis Comments CBC W/DIFF AUTOMATED Routine 05/13/2020 11:30 AM CDT Iron deficiency anemia due to chronic blood loss Chronic ITP (idiopathic thrombocytopenia) ([facility]) Iron deficiency anemia secondary to inadequate dietary iron intake documented in this encounter Results * (ABNORMAL) CBC W/DIFF AUTOMATED (05/13/2020 11:30 AM CDT) WBC 9.4 4.5 - 10.8 x10'3/uL 05/13/2020 12:05 PM CDT [facility] RBC 4.24 4.10 - 5.40 x10'6/uL 05/13/2020 12:05 PM CDT [facility] HGB 12.2 12.0 - 16.0 G/DL 05/13/2020 12:05 PM CDT [facility] HCT 39.3 36.0 - 47.0 % 05/13/2020 12:05 PM CDT [facility] MCV 92.7 78.0 - 100.0 FL 05/13/2020 12:05 PM CDT [facility] MCH 28.8 27.0 - 31.0 PG 05/13/2020 12:05 PM CDT [facility] MCHC 31.0(L) 33.0 - 36.0 G/DL 05/13/2020 12:05 PM CDT [facility] RDW 21.2(H) 11.5 - 14.5 % 05/13/2020 12:05 PM CDT [facility] PLT 62(L) 150 - 350 x10'3/uL 05/13/2020 12:05 PM CDT [facility] MPV RESULTS NOT AVAILABLE 7.4 - 10.4 FL 05/13/2020 12:05 PM CDT [facility] DIFFERENTIAL COMMENT NORMAL REFERENCE RANGE NOT ESTABLISHED FOR THE PROPORTIONAL LEUKOCYTE DIFFERENTIAL. 05/13/2020 12:05 PM CDT [facility] SEG NEUTROPHILS 69.5 % 0 12:06 PM CDT [facility] LYMPHOCYTES 22.2 % 05/13/2020 12:06 PM CDT [facility] MONOCYTES 4.3 % 05/13/2020 12:06 PM CDT [facility] EOSINOPHILS 3.1 % 05/13/2020 12:06 PM CDT [facility] BASOPHILS 0.5 % 05/13/2020 12:06 PM CDT [facility] IMMATURE GRANS % 0.4 % 05/13/20 20 12:06 PM CDT [facility] NRBC 0.0 % 05/13/2020 12:06 PM CDT [facility] ABS. NEUTROPHILS 6.53 1.60 - 8.30 x10'3/uL 05/13/2020 12:06 PM CDT [facility] ABS. LYMPHOCYTES 2.09 0.80 - 4.70 x10'3/uL 05/13/2020 12:06 PM CDT [facility] ABS. MONOCYTES 0.40 0.00 - 1.50 x10'3/uL 05/13/2020 12:06 PM CDT [facility] ABS. EOSINOPHILS 0.29 0.00 - 0.40 x10'3/uL 05/13/2020 12:06 PM CDT [facility] ABS. BASOPHILS 0.05 0.00 - 0.20 x10'3/uL 05/13/2020 12:06 PM CDT [facility] ABS. IMMATURE GRANULOCYTES 0.04(H) 0.00 - 0.03 x10'3/uL 05/13/2020 12:06 PM CDT [facility] ABS. NUCLEATED RBC'S 0.00 0.00 x10'3/uL 05/13/2020 12:06 PM CDT [facility] PLT MORPH. DECREASED 05/13/2020 12:06 PM CDT [facility] RBC MORPHOLOGY 1+ 05/13/2020 12:06 PM CDT [facility] Comment:POIKILOCYTOSIS 05/13/2020 11:3 0 AM CDT Roberta Alex MD LABORATORY Final Result [facility] [address] [place] [address], documented in this encounter Visit Diagnoses Diagnosis Iron deficiency anemia due to chronic blood loss Iron deficiency anemia secondary to blood loss (chronic) Chronic ITP (idiopathic thrombocytopenia) (CMS/HCC HHS/HCC) Immune thrombocytopenic purpura Iron deficiency anemia secondary to inadequate dietary iron intake documented in this encounter Care Teams Oil Burner Mechanic Relationship Specialty Start Date End Date Alejandro Blevins MD PCP - General FAMILY PRACTICE 12/10/19 documented as of this encounter
--- OUTSIDE RECORDS SUMMARY | 2024-07-11 05:43 | XMS_ITS | Encounter Summary ---
Author Organization [facility] Address [facility]. [address] Care Team Providers Care Receiving Weigher Name Role Phone Alejandro Blevins MD Primary Care Provider [phone] Encounter Details Date Type Department Care Team ([facility] Contact Info) Description 05/16/2020 Orders Only [facility] [place] [address] Tejinder Garcia, [facility] Social History Tobacco Use Types Packs/Day Years Used Date Smoking Tobacco: Every Day Smokeless Tobacco: Never Comments Yes Sex and Gender Information Value Date Recorded Sex Assigned at Not on file Legal Sex Female 11:30 PM PAINT ROLLER COVERMAKER Gender Identity Female 11/10/2021 3:09 PM CDT Sexual Orientation Straight 11/10/2021 3: 09 PM CDT COVID-19 Exposure Response Date Recorded In the last month, have you been in contact with someone who was confirmed or suspected to have Coronavirus / COVID-19? Yes 05/13/2020 11:22 AM CDT documented as of this encounter Plan of Treatment Upcoming Encounters Date Type Department Care Team (Late Contact Info) Description 09/25/2024 11:30 AM PAINT ROLLER COVERMAKER Appointment [place] [address] Roberta Alex MD [address] [place] [address] 09/25/2024 11:40 AM PAINT ROLLER COVERMAKER Office Visit [facility] [place] [address] Roberta Alex MD [address] [place] [address] documented as of this encounter Results * (ABNORMAL) CARDIOLIPIN ANTIBODIES (IGG,IGA,IGM) (07/08/2020 11:55 AM PAINT ROLLER COVERMAKER) CARDIOLIPIN AB IGG <14 <=14 GPL 2019 2:29 AM PAINT ROLLER COVERMAKER [employer] IDSCARLETT PEACE Comment: Cardiolipin Ab (IgG) Reference Range: Value ? Interpretation ? < or = 14 ? Negative 15 - 20 ? Indeterminate 21 - 80 ? Low to Medium Positive > 80 ?High Positive CARDIOLIPIN AB IGM 41(H) <=12 MPL 2019 2:29 AM PAINT ROLLER COVERMAKER [employer] JUSTIN PEACE Comment: >40 MPL is a risk factor for thrombosis and loss. Cardiolipin Ab (IgM) Reference Range: Value ? Interpretation ? < or = 12 ? Negative 13 - 20 ? Indeterminate 21 - 80 ? Low to Medium Positive > 80 ?High Positive The antiphospholipid antibody syndrome (APS) is a clinical-pathologic correlation that includes a clinical event (e.g. thrombosis, loss, thrombocytopenia) and persistent positive antiphospho- lipid antibodies (IgM or IgG JUAN [place] >40 MPL/GPL, IgM or IgG anti-b2GPI antibodies or a lupus anticoagulant). International consensus guidelines for APS suggest waiting at least 12 weeks before retesting to confirm antibody persistence. The Systemic Lupus International Collaborating [facility] immunological classification criteria for systemic lupus erythematosus (SLE) include testing for isotype IgA, which has yet to be incorporated into APS criteria. Low level antiphospholipid antibodies may sometimes be detected in the setting of infection, drug therapy or aging. Test Performed by [employer], [facility], [address] [place], [place] Hank Landin M.D., Ph.D., Director of Laboratories , CLIA [id number] CARDIOLIPIN AB IGA <11 <=11 APL 2019 2:29 AM PAINT ROLLER COVERMAKER [employer] PILLAISCARLETT PEACE Comment: Cardiolipin Ab (IgA) Reference Range: Value ? Interpretation ? < or = 11 ? Negative 12 - 20 ? Indeterminate 21 - 80 ? Low to Medium Positive > 80 ?High Positive 07/08/2020 11:5 5 AM PAINT ROLLER COVERMAKER Roberta Alex MD LABORATORY Final Result Performing Organization Address City/[facility]/ZIP Co de Phone Number [employer] [address] [address], [place] [phone] * VITAMIN B-12 (07/08/2020 11:55 AM PAINT ROLLER COVERMAKER) Pathologist [facility] VITAMIN B12 S/P/B 919 193 - 986 PG/ML 07/09/2020 6:17 PM PAINT ROLLER COVERMAKER [facility] 07/08/2020 11:5 5 AM PAINT ROLLER COVERMAKER Roberta Alex MD LABORATORY Final Result [facility] [address] [place] [address], [place] [phone] * FERRITIN (07/08/2020 11:55 AM PAINT ROLLER COVERMAKER) Pathologist [facility] FERRITIN 21.1 8 - 252 NG/ML 07/08/2020 12:35 PM PAINT ROLLER COVERMAKER [facility] 07/08/2020 11:5 5 AM PAINT ROLLER COVERMAKER Roberta Alex MD LABORATORY Final Result [facility] [address] [employer] [place] [address], documented in this encounter Visit Diagnoses Diagnosis Anemia- Primary Anemia, unspecified Iron deficiency anemia secondary to inadequate dietary iron intake Chronic ITP (idiopathic thrombocytopenia) (CMS/HCC HHS/HCC) Immune thrombocytopenic purpura documented in this encounter Care Teams Receiving Weigher Relationship Specialty Start Date End Date Alejandro Blevins MD PCP - General FAMILY PRACTICE 12/10/19 documented as of this encounter
--- OUTSIDE RECORDS SUMMARY | 2024-07-11 05:43 | XMS_ITS | Encounter Summary ---
Author Organization [facility] Address [address] [place] [address]. [place] [address] [place] [address] Care Team Providers Care Dynamicist Name Role Phone Alejandro Blevins MD Primary Care Provider [phone] Encounter Details Date Type Department Care Team (Latest Contact Info) Description 07/08/2020 Travel Social History Tobacco Use Types Packs/Day Years Used Date Smoking Tobacco: Every Day Smokeless Tobacco: Never Comments Yes Sex and Gender Information Value Date Recorded Sex Assigned at Not on file Legal Sex Female 11:30 PM ENTRY LEVEL ELECTRICIAN Gender Identity Female 11/10/2021 3:09 PM CDT Sexual Orientation Straight 11/10/2021 3: 09 PM CDT COVID-19 Exposure Response Date Recorded In the last month, have you been in contact with someone who was confirmed or suspected to have Coronavirus / COVID-19? No / Unsure 07/08/2020 11:36 AM ENTRY LEVEL ELECTRICIAN documented as of this encounter Plan of Treatment Upcoming Encounters Date Type Department Care Team (Late st Contact Info) Description 09/25/2024 11:30 AM ENTRY LEVEL ELECTRICIAN Appointment [facility] [address] [place] [address] Roberta Alex MD [address] [place] [address] 09/25/2024 11:40 AM ENTRY LEVEL ELECTRICIAN Office Visit [facility] [address] [place] [address] Roberta Alex MD [address] [place] [address] documented as of this encounter Visit Diagnoses Not on filedocumented in this encounter Care Teams Dynamicist Relationship Specialty Start Date End Date Alejandro Blevins MD PCP - General FAMILY PRACTICE 12/10/19 documented as of this encounter
--- OUTSIDE RECORDS SUMMARY | 2024-07-11 05:43 | XMS_ITS | Encounter Summary ---
Author Organization [facility] Address [address] [place] [address]. [place] [address] [place] [address] Care Team Providers Care Official Court Reporter Name Role Phone Alejandro Blevins MD Primary Care Provider Encounter Details Date Type Department Care Team (Latest Contact Info) Description 07/30/2020 9:00 AM MOTOR VEHICLE CLERK - 07/30/2020 10:18 AM MOTOR VEHICLE CLERK Hospital Encounter [address] [place] [address] Roberta Alex MD [address] [place], [place] [phone] Discharge Disposition: Home or Self Care (Routine Discharge) Social History Tobacco Use Types Packs/Day Years Used Date Smoking Tobacco: Former Smokeless Tobacco: Current Comments Yes Sex and Gender Information Value Date Recorded Sex Assigned at Not on file Legal Sex Female 11:30 PM MOTOR VEHICLE CLERK Gender Identity Female 11/10/2021 3:09 PM CDT Sexual Orientation Straight 11/10/2021 3: 09 PM CDT COVID-19 Exposure Response Date Recorded In the last month, have you been in contact with someone who was confirmed or suspected to have Coronavirus / COVID-19? No / Unsure 07/29/2020 10:35 AM MOTOR VEHICLE CLERK documented as of this encounter Medications at Time of Discharge naproxen sodium 220 MG tablet Take 440 mg by mouth 2 (two) times daily with meals. 07/31/2020 predniSONE 50 MG tablet Take 1 tablet (50 mg total) by mouth daily for 5 days. 5 tablet 07/31/2020 08/05/2020 Sofosbuvir-Velpat asvir 400-100 MG Tab Take 1 tablet by mouth daily. 06/17/2020 01/06/2021 documented as of this encounter Plan of Treatment Upcoming Encounters Date Type Department Care Team (Late st Contact Info) Description 09/25/2024 11:30 AM MOTOR VEHICLE CLERK Appointment [facility] [address] [place] [address] Roberta Alex MD [address] [place] [address] [phone] 09/25/2024 11:40 AM MOTOR VEHICLE CLERK Office Visit [facility] [address] [place] [address] Roberta Alex MD [address] [place], [place] [address] documented as of this encounter Procedures Procedure Name Priority Date/Time Associated Diagnosis Comments CBC W/DIFF AUTOMATED Routine 07/30/2020 9:40 AM MOTOR VEHICLE CLERK Chronic ITP (idiopathic thrombocytopenia) ([facility]) Anemia documented in this encounter Results * (ABNORMAL) CBC W/DIFF AUTOMATED (07/30/2020 9:40 AM MOTOR VEHICLE CLERK) WBC 5.2 4.5 - 10.8 x10'3/uL 07/30/2020 9:50 AM MOTOR VEHICLE CLERK [facility] RBC 4.67 4.10 - 5.40 x10'6/uL 07/30/2020 9:50 AM MOTOR VEHICLE CLERK [facility] HGB 13.0 12.0 - 16.0 G/DL 07/30/2020 9:50 AM MOTOR VEHICLE CLERK [facility] HCT 41.9 36.0 - 47.0 % 07/30/2020 9:50 AM MOTOR VEHICLE CLERK [facility] MCV 89.7 78.0 - 100.0 FL 07/30/2020 9:50 AM MOTOR VEHICLE CLERK [facility] MCH 27.8 27.0 - 31.0 PG 07/30/2020 9:50 AM [facility] MCHC 31.0(L) 33.0 - 36.0 G/DL 07/30/2020 9:50 AM [facility] RDW 14.0 11.5 - 14.5 % 07/30/2020 9:50 AM [facility] PLT 15(LL) 150 - 350 x10'3/uL 07/30/2020 9:50 AM [facility] Comment: CRITICAL VALUE CALLED TO MARIUM AT 0950 READ BACK AND VERIFIED MPV RESULTS NOT AVAILABLE 7.4 - 10.4 FL 07/30/2020 9:50 AM [facility] DIFFERENTIAL COMMENT NORMAL REFERENCE RANGE NOT ESTABLISHED FOR THE PROPORTIONAL LEUKOCYTE DIFFERENTIAL. 07/30/2020 9:50 AM [facility] SEG NEUTROPHILS 74.9 % 9:57 AM [facility] LYMPHOCYTES 6.4 % 07/30/2020 9:57 AM [facility] MONOCYTES 4.7 % 07/30/2020 9:57 AM [facility] EOSINOPHILS 12.4 % 07/30/2020 9:57 AM [facility] BASOPHILS 1.4 % 07/30/2020 9:57 AM [facility] IMMATURE GRANS % 0.2 % 07/30/19 9:57 AM [facility] NRBC 0.0 % 07/30/2020 9:57 AM [facility] ABS. NEUTROPHILS 3.91 1.60 - 8.30 x10'3/uL 07/30/2020 9:57 AM [facility] ABS. LYMPHOCYTES 0.33(L) 0.80 - 4.70 x10'3/uL 07/30/2020 9:57 AM [facility] ABS. MONOCYTES 0.24 0.00 - 1.50 x10'3/uL 07/30/2020 9:57 AM [facility] ABS. EOSINOPHILS 0.64(H) 0.00 - 0.40 x10'3/uL 07/30/2020 9:57 AM [facility] ABS. BASOPHILS 0.07 0.00 - 0.20 x10'3/uL 07/30/2020 9:57 AM MOTOR VEHICLE CLERK [facility] ABS. IMMATURE GRANULOCYTES 0.01 0.00 - 0.03 x10'3/uL 07/30/2020 9:57 AM MOTOR VEHICLE CLERK [facility] ABS. NUCLEATED RBC'S 0.00 0.00 x10'3/uL 07/30/2020 9:57 AM MOTOR VEHICLE CLERK [facility] PLT MORPH. DECREASED 07/30/2020 9:57 AM MOTOR VEHICLE CLERK [facility] RBC MORPHOLOGY 1+ 07/30/2020 9:57 AM MOTOR VEHICLE CLERK [facility] Comment:ANISOCYTOSIS 07/30/2020 9:40 AM MOTOR VEHICLE CLERK us Roberta Alex MD LABORATORY Final Result [facility] [address] [place] [address], documented in this encounter Visit Diagnoses Diagnosis Chronic ITP (idiopathic thrombocytopenia) ([facility]) Immune thrombocytopenic purpura Anemia Anemia, unspecified documented in this encounter Care Teams Official Court Reporter Relationship Specialty Start Date End Date Alejandro Blevins MD PCP - General FAMILY PRACTICE 12/10/19 documented as of this encounter
--- OUTSIDE RECORDS SUMMARY | 2024-07-11 05:43 | XMS_ITS | Encounter Summary ---
Author Organization [facility] Address [address] [place] [address]. [place] [address] [place] [address] Care Team Providers Care Brush And Broom Clipper Name Role Phone Alejandro Blevins MD Primary Care Provider [phone] Reason for Visit * Reason Onset Date Comments Lab Results 07/21/2020 Encounter Details Date Type Department Care Team (Late st Contact Info) Description 07/21/2020 Telephone [facility] [address] [address] Roberta Alex MD [address] [place] [address] Lab Results Social History Tobacco Use Types Packs/Day Years Used Date Smoking Tobacco: Every Day Smokeless Tobacco: Never Comments Yes Sex and Gender Information Value Date Recorded Sex Assigned at Not on file Legal Sex Female 11:30 PM QUARTER TRIMMER Gender Identity Female 11/10/2021 3:09 PM CDT Sexual Orientation Straight 11/10/2021 3: 09 PM CDT COVID-19 Exposure Response Date Recorded In the last month, have you been in contact with someone who was confirmed or suspected to have Coronavirus / COVID-19? No / Unsure 07/21/2020 12:03 PM QUARTER TRIMMER documented as of this encounter Progress Notes * Roberta Alex MD - 07/21/2020 4:42 PM CST Today platelet counts still at 28K. She has not taken Dexamethasone. Instructed to take It and emphasized importance. No bleeding. She will take with food in the AM. No PPI due to HCV rx. Also ACLA IGM positive, she meets laboratory criteria for APLS and had morbidity given recent preeclampsia. She has no history of arterial or venous thrombosis. No good data to treatwith anticoagulation with no hx of thrombosis. She will benefit with Aspirin. However due to platelet counts <50K, will hold off on ASA at this time. Referral to Rheumatology placed for further evaluation. TER TRIMMER documented in this encounter Plan of Treatment Upcoming Encounters Date Type Department Care Team (Late st Contact Info) Description 09/25/2024 11:30 AM QUARTER TRIMMER Appointment [facility] [facility] [address] [place] [address] Roberta Alex MD [address] [place] [address] 09/25/2024 11:40 AM QUARTER TRIMMER Office Visit [facility] [place] [address] Roberta Alex MD [address] [place] [address] documented as of this encounter Visit Diagnoses Not on filedocumented in this encounter Care Teams Brush And Broom Clipper Relationship Specialty Start Date End Date Alejandro Blevins MD PCP - General FAMILY PRACTICE 12/10/19 documented as of this encounter
--- OUTSIDE RECORDS SUMMARY | 2024-07-11 05:43 | XMS_ITS | Encounter Summary ---
Author Organization [facility] Address [address] [place] [address]. [place] [address] [place] [address] Care Team Providers Care Pest Control Supervisor Name Role Phone Alejandro Blevins MD Primary Care Provider [phone] Reason for Visit * Reason Comments Follow Up Lab Results Encounter Details Date Type Department Care Team (Late st Contact Info) Description 07/29/2020 10:40 AM EMBROIDERY PATTERNMAKER Office Visit [address] [place] [address] Roberta Alex MD [address] [place] [address] Follow Up; Lab Results Social History Tobacco Use Types Packs/Day Years Used Date Smoking Tobacco: Every Day Smokeless Tobacco: Never Comments Yes Sex and Gender Information Value Date Recorded Sex Assigned at Not on file Legal Sex Female 11:30 PM EMBROIDERY PATTERNMAKER Gender Identity Female 11/10/2021 3:09 PM CDT Sexual Orientation Straight 11/10/2021 3: 09 PM CDT COVID-19 Exposure Response Date Recorded In the last month, have you been in contact with someone who was confirmed or suspected to have Coronavirus / COVID-19? No / Unsure 07/30/2020 1:19 PM EMBROIDERY PATTERNMAKER documented as of this encounter Last Filed Vital Signs Vital Sign Reading Time Taken Comments Blood Pressure 105/68 07/29/2020 10:48 AM EMBROIDERY PATTERNMAKER Pulse 91 07/29/2020 10:48 AM EMBROIDERY PATTERNMAKER Temperature 36.8 ??C (98.2 ??F) 07/29/2020 10:[address] Respiratory Rate 18 07/29/2020 10:48 AM EMBROIDERY PATTERNMAKER Oxygen Saturation - - Inhaled Oxygen Concentration - - Weight 59.7 kg (131 lb 9.8 oz) 07/29/2020 10:48 AM EMBROIDERY PATTERNMAKER Height 165.1 cm (5' 5 ) 07/29/2020 10:48 AM EMBROIDERY PATTERNMAKER Body Mass Index 21.9 07/29/2020 10:48 AM EMBROIDERY PATTERNMAKER documented in this encounter Progress Notes * Roberta Alex MD - 07/29/2020 10:40 AM CST Hematology/Oncology Note Identifying Data Hillary Smalls is a 30-year-old female Reason for Visit: Follow Up and Lab Results History of Present Illness: Hillary Smalls is a 30-year-old female with hx of polysubstance abuse, hx of ITP, SHANDA who follows with us for chronic ITP, severe iron deficiency, B12 deficiency since 11/2019. Initially established care with pa when she was with twins at 20 weeks gestation and had no care. 1. ITP: - Regarding prev history: Followed with [facility] director business development Dr. Dick Bonilla 5 years ago. - During - she had a combination of ITP and gestational- Platelets around 40K- 50K. She continued with smoking, polysubstance abuse. - She had significant vaginal bleeding from placental abruption related PPH, hemorrhagic shock requiring intubation. She received multiple blood products during her hospitalization 7 units PRBC, 4 units FFP, 2 units platelets, 2 units cryoprecipitate. Also for platelets she received Solu-Medrol 1 g IV x3 days, IVIGwith good improvement in platelet counts to normal ranges. - Slow decline over course of last 2 months. Platelet counts dropped to 27K on 07/08. Ordered Dexamethasone 40mg OD x 4 days. Repeat CBC in 1 week with platelet counts 07/16 at 28K with no bleeding. Patient had not taken Dexamethasone. Emphasized importance. Repeat CBC on 07/28 with counts further decline to 20K 2. Iron deficiency and B12 related anemia - Work-up for other causes of anemia including hemolytic work-up, Hgb electrophoresis, MARQUITA were negative. - Received multiple IV Venofer for severe iron deficiency anemia, B12 supplementation until she went into delivery. 3. 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 Hx of morbidity - Rheumatology evaluation pending. Unable to start ASA due to thrombocytopenia. No concern for ATE/VTE- no indication for full dose anticoagulation and also contraindicated due to low platelet counts Interval history: Patient denied any major bleeding. Had mild spotting for 2 weeks and recently started her menstrualcycles which are not heavy. No changes in medications. No recent illness. Reports fatigue and irritation. ROS General: Fatigue as above Skin: No [...] file Gets together: Not on file Attends christian service: Not on file Active member of [...] file History reviewed. No pertinent surgical history. No current facility-administered medications for this visit. Current Outpatient Medications Medication Sig Dispense Refill ??? naproxen sodium 220 MG tablet Take 440 mg by mouth 2 (two) times daily with meals. ??? Sofosbuvir-Velpatasvir 400-100 MG Tab Take 1 tablet by mouth daily. Facility-Administered Medications Ordered in Other Visits Medication Dose Route Frequency Provider Last Rate Last Admin ??? acetaminophen (TYLENOL) tablet 650 mg 650 mg Oral Q4H PRN Sherice Duarte MD ??? immune globulin (Human) (GAMMAGARD, GAMUNEX-C) infusion 60 g 60 g Intravenous Once Ania Be NP ??? sodium chloride 0.9% infusion 250 mL Intravenous Continuous Roberta Alex MD Stopped at 07/29/20 1627 ??? sodium chloride 0.9% infusion 250 mL Intravenous Continuous Ania Be NP Allergies Allergen Reactions ??? Bee Venom Anaphylaxis [...] ITP (idiopathic thrombocytopenia) (CMS/HCC) ??? Thrombocytopenia (CMS/HCC) Vitals Height: 5' 3 (1.6 m) , Weight: 60.8 kg (134 lb 0.6 oz) , BSA (Calculated - sq m): 1.64 sq meters , BP: 118/75 , Temp: 97.6 ??F (36.4 ??C) , Pulse: 92 , Resp: 14 Physical Exam Constitutional Appears in no acute [...] ABS. NEUTROPHILS Date Value Ref Range Status 07/30/2020 3.91 1.60 - 8.30 x10'3/uL Final WBC Date Value Ref Range Status 07/30/2020 4.7 4.0 - 10.8 x10'3/uL Final HGB Date Value Ref Range Status 07/30/2020 12.4 12.0 - 16.0 G/DL Final HCT Date Value Ref Range Status 07/30/2020 40.5 36.0 - 47.0 % Final PLT Date Value Ref Range Status 07/30/2020 16 (LL) 150 - 350 x10'3/uL Final Comment: CRITICAL RESULT, SPECIMEN DATE, TIME WERE READ BACK BY ROSE JENKINS @ 1520 07/30/2020 BY TYRELL LARGE PLATELETS PRESENT Assessment and Plan 1. Acute on chronic thrombocytopenia: secondary to HCV infection and immune mediated. - No improvement with dexamethasone 40 mg once daily x 4 days (07/16-07/20) - Repeat CBC with further decline to 20K. Arrange for IVIG followed by platelet transfusion NANCY. If platelets improve then it points towards ITP related component. 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 Iron deficiency anemia: Ferritin 20. Continue oral supplements. - B12 deficiency, folic acid deficiency: This seems to be improving. Continue on oral B12, folate supplements. 3. Chronic HCV infection: She is currently started on HCV antiviral treatment and follows with [facility] hepatology team. 4. Polysubstance abuse, IVDA, UDS positive for amphetamine. Patient has quit using recreational drugs. Commended on efforts 6. 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 Hold ASA due to thrombocytopenia Time Spent: Approximately 25 minutes was spent in direct patient consultation and the majority of that time (>50%) was spent on counseling and coordination of care. Roberta Alex MD CC: Alejandro Blevins MD OIDERY PATTERNMAKER documented in this encounter Plan of Treatment Upcoming Encounters Date Type Department Care Team (Late st Contact Info) Description 09/25/2024 11:30 AM EMBROIDERY PATTERNMAKER Appointment [facility] [address] [place] [address] Roberta Alex MD [address] [place], [place] [id number] 09/25/2024 11:40 AM EMBROIDERY PATTERNMAKER Office Visit [address] [place] [address] Roberta Alex MD [address] [place] [id number] documented as of this encounter Visit Diagnoses Diagnosis Thrombocytopenia (CMS/HCC)- Primary Thrombocytopenia, unspecified Iron deficiency anemia secondary to inadequate dietary iron intake Chronic ITP (idiopathic thrombocytopenia) (CMS/HCC HHS/HCC) Immune thrombocytopenic purpura Other dietary vitamin B12 deficiency anemia Anti-cardiolipin antibody positive Other and unspecified nonspecific immunological findings documented in this encounter Care Teams Pest Control Supervisor Relationship Specialty Start Date End Date Alejandro Blevins MD PCP - General FAMILY PRACTICE 12/10/19 documented as of this encounter
--- OUTSIDE RECORDS SUMMARY | 2024-07-11 05:43 | XMS_ITS | Encounter Summary ---
Author Organization [facility] Address [address] [place] [address]. [place] [address] [place] [address] Care Team Providers Care Intelligence Engineer Name Role Phone Alejandro Blevins MD Primary Care Provider [phone] Reason for Visit * Reason Comments Transfusion Encounter Details Date Type Department Care Team (Latest Contact Info) Description 07/29/2020 11:32 AM SETTER MOLDING AND COREMAKING MACHINES - 07/29/2020 11:59 PM SETTER MOLDING AND COREMAKING MACHINES Hospital Encounter [facility] [address] [place] [address] [place] [address] Roberta Alex MD [address] [place] [address] Transfusion Discharge Disposition: Home or Self Care (Routine Discharge) Social History Tobacco Use Types Packs/Day Years Used Date Smoking Tobacco: Every Day Smokeless Tobacco: Never Comments Yes Sex and Gender Information Value Date Recorded Sex Assigned at Not on file Legal Sex Female 11:30 PM SETTER MOLDING AND COREMAKING MACHINES Gender Identity Female 11/10/2021 3:09 PM CDT Sexual Orientation Straight 11/10/2021 3: 09 PM CDT COVID-19 Exposure Response Date Recorded In the last month, have you been in contact with someone who was confirmed or suspected to have Coronavirus / COVID-19? No / Unsure 07/29/2020 10:35 AM SETTER MOLDING AND COREMAKING MACHINES documented as of this encounter Last Filed Vital Signs Vital Sign Reading Time Taken Comments Blood Pressure 137/73 07/29/2020 4:50 PM SETTER MOLDING AND COREMAKING MACHINES no headache, SOB, chest pain Pulse 73 07/29/2020 4:50 PM SETTER MOLDING AND COREMAKING MACHINES Temperature 36.4 ??C (97.5 ??F) 07/29/2020 4 :50 PM SETTER MOLDING AND COREMAKING MACHINES Respiratory Rate 20 07/29/2020 4:50 PM SETTER MOLDING AND COREMAKING MACHINES Oxygen Saturation 100% 07/29/2020 4:2 0 PM SETTER MOLDING AND COREMAKING MACHINES Inhaled Oxygen Concentration - - Weight - - Height - - Body Mass Index - - documented in this encounter Discharge Instructions * Patient Instructions* Kamilah [place] RN - 07/29/2020 11:45 AM SETTER MOLDING AND COREMAKING MACHINES Return tomorrow for a CBC to see response to platelet therapy. IVIG is pending insurance authorization and we will call you. ER MOLDING AND COREMAKING MACHINES documented in this encounter Medications at Time of Discharge naproxen sodium 220 MG tablet Take 440 mg by mouth 2 (two) times daily with meals. 07/31/2020 Sofosbuvir-Velpat asvir 400-100 MG Tab Take 1 tablet by mouth daily. 06/17/2020 01/06/2021 documented as of this encounter Progress Notes * Kamilah [place] RN - 07/29/2020 11:45 AM CST PATIENT ASSESSMENT: Admitted via: Ambulatory Admitted from: Home Planned procedure: platelet transfusion Patient information verified by Kamilah [place] RN. Barriers to learning: None Patient identity confirmed - Name and date of and Allergies Verified LOC: Alert Emotional: Calm Motor Activity: Gait steady Respiratory: Regular and even Circulatory: n/a Nutrition: Tolerated diet well Elimination: Voiding NURSING DIAGNOSIS: Knowledge deficit related to postprocedure care GOALS: Patient/S.O. will verbalize understanding of instructions ER MOLDING AND COREMAKING MACHINES documented in this encounter Plan of Treatment Upcoming Encounters Date Type Department Care Team (Late st Contact Info) Description 09/25/2024 11:30 AM SETTER MOLDING AND COREMAKING MACHINES Appointment [facility] [facility] [place] [place] [address] Roberta Alex MD [address] [place] [address] 09/25/2024 11:40 AM SETTER MOLDING AND COREMAKING MACHINES Office Visit [facility] [address] [facility] [place] [address] Roberta Alex MD [address] [place] [address] documented as of this encounter Procedures Procedure Name Priority Date/Time Associated Diagnosis Comments TRANSFUSE PLATELET PHERESIS Routine 07/29/2020 3:39 PM SETTER MOLDING AND COREMAKING MACHINES Chronic ITP (idiopathic thrombocytopenia) ([facility]) HC BLOOD TYPING ABO Routine 07/29/2020 1 1:40 AM SETTER MOLDING AND COREMAKING MACHINES Chronic ITP (idiopathic thrombocytopenia) ([facility]) documented in this encounter Results * TRANSFUSE PLATELET PHERESIS (07/29/2020 4:27 PM SETTER MOLDING AND COREMAKING MACHINES) Result [facility] Roberta Alex MD NURSING TREATMENT ORDERABLES - BLOOD ADMIN Final Result * TRANSFUSE PLATELET PHERESIS, 1 Units (07/29/2020 4:27 PM SETTER MOLDING AND COREMAKING MACHINES) Roberta Alex MD NURSING TREATMENT ORDERABLES - BLOOD ADMIN Final Result * BLOOD TYPING, ABO AND RH (07/29/2020 11:40 AM SETTER MOLDING AND COREMAKING MACHINES) ABO/RH A POSITIVE 07/29/2020 12:38 PM SETTER MOLDING AND COREMAKING MACHINES [facility] 07/29/2020 11:4 0 AM SETTER MOLDING AND COREMAKING MACHINES Roberta Alex MD BLOOD BANK TEST ORDERABLES Fin al Result [facility] Critical access hospital[place] [address], * ORDER PLATELET PHERESIS, 1 Units (07/29/2020 11:40 AM SETTER MOLDING AND COREMAKING MACHINES) UNITS ORDERED 1 07/29/2020 11:41 AM SETTER MOLDING AND COREMAKING MACHINES [facility] BLOOD UNIT NUMBER [id number] 07/29/2020 3:31 PM SETTER MOLDING AND COREMAKING MACHINES [facility] PRODUCT: PLT PHERESIS LEUKOPOOR BAG 1 07/29/2020 3:31 PM SETTER MOLDING AND COREMAKING MACHINES [facility] UNIT DIVISION 00 07/29/2020 3:31 PM SETTER MOLDING AND COREMAKING MACHINES [facility] BLOOD UNIT STATUS TRANSFUSED,FINAL 07/31/2020 12:15 AM SETTER MOLDING AND COREMAKING MACHINES [facility] ISSUE DATE/TIME [id number] 021 12:15 AM SETTER MOLDING AND COREMAKING MACHINES [facility] PRODUCT CODE [id number] 07/31/2020 12:15 AM SETTER MOLDING AND COREMAKING MACHINES [facility] ABO/RH Unit A POS 07/31/2020 12:15 AM SETTER MOLDING AND COREMAKING MACHINES [facility] ABO/RH UNIT ISBT CODE [id number] 07/31/2020 12:15 AM SETTER MOLDING AND COREMAKING MACHINES [facility] BLOOD UNIT EXPIRATION DATE [id number] 07/31/2020 12:15 AM SETTER MOLDING AND COREMAKING MACHINES [facility] TRANSFUSION STATUS OK TO TRANSFUSE 07/29/2020 3:31 PM SETTER MOLDING AND COREMAKING MACHINES [facility] 07/29/2020 11:4 0 AM SETTER MOLDING AND COREMAKING MACHINES us Roberta Alex MD BLOOD BANK PRODUCT ORDERABLES Final Result [facility] [address] [place] [address], documented in this encounter Visit Diagnoses Diagnosis Chronic ITP (idiopathic thrombocytopenia) ([facility])- Primary Immune thrombocytopenic purpura documented in this encounter Administered Medications Inactive Administered Medications - up to 3 most recent administrations Medication Order MAR Action Action Date Dose Rate Site sodium chloride 0.9% infusion at 10 mL/hr, Intravenous, Continuous, Starting on Tue07/29/20 at 1200, Until Tue07/31/20 at 0049, Infuse at TKO rateIndications:Chronic ITP (idiopathic thrombocytopenia) ([facility] HHS/HCC) New Bag 07/29/2020 4:20 PM SETTER MOLDING AND COREMAKING MACHINES 250 mLs 450 mL/hr documented in this encounter Care Teams Intelligence Engineer Relationship Specialty Start Date End Date Alejandro Blevins MD PCP - General FAMILY PRACTICE 12/10/19 documented as of this encounter
--- OUTSIDE RECORDS SUMMARY | 2024-07-11 05:43 | XMS_ITS | Encounter Summary ---
Author Organization [facility] Address [address] [place] [address]. [place] [address] [place] [address] Care Team Providers Care English Instructor Name Role Phone Alejandro Blevins MD Primary Care Provider [phone] Encounter Details Date Type Department Care Team (Latest Contact Info) Description 07/21/2020 12:03 PM AIRPORT SKILLED MAINTENANCE SUPERVISOR - 07/21/2020 11:59 PM AIRPORT SKILLED MAINTENANCE SUPERVISOR Hospital Encounter [address] [place] [address] Roberta Alex MD [address] [place], [place] [id number] Discharge Disposition: Home or Self Care (Routine Discharge) Social History Tobacco Use Types Packs/Day Years Used Date Smoking Tobacco: Every Day Smokeless Tobacco: Never Comments Yes Sex and Gender Information Value Date Recorded Sex Assigned at Not on file Legal Sex Female 11:30 PM AIRPORT SKILLED MAINTENANCE SUPERVISOR Gender Identity Female 11/10/2021 3:09 PM CDT Sexual Orientation Straight 11/10/2021 3: 09 PM CDT COVID-19 Exposure Response Date Recorded In the last month, have you been in contact with someone who was confirmed or suspected to have Coronavirus / COVID-19? No / Unsure 07/21/2020 12:03 PM AIRPORT SKILLED MAINTENANCE SUPERVISOR documented as of this encounter Medications at [...] daily. 12/09/2019 07/29/2020 folic acid 1 MG tabletIndications :Iron deficiency anemia secondary to inadequate dietary iron intake,Acute ITP (CMS/HCC HHS/HCC) Take 1 tablet (1 mg total) by mouth daily. 30 tablet 2 07/08/2020 07/29/2020 vitamin 27-1 MG tablet Take 1 tablet by mouth daily. 01/23/2020 07/29/2020 Sofosbuvir-Velpat asvir 400-100 MG Tab Take 1 tablet by mouth daily. 06/17/2020 01/06/2021 vitamin B-12 (CYANOCOBALAMIN) 1000 mcg tablet Take 1,000 mcg by mouth daily. 07/29/2020 documented as of this encounter Plan of Treatment Upcoming Encounters Date Type Department Care Team (Late st Contact Info) Description 09/25/2024 11:30 AM AIRPORT SKILLED MAINTENANCE SUPERVISOR Appointment [facility] [place] [address] Roberta Alex MD [address] [place] [address] 09/25/2024 11:40 AM AIRPORT SKILLED MAINTENANCE SUPERVISOR Office Visit [facility] [place] [address] Roberta Alex MD [address] [place] [address] documented as of this encounter Procedures Procedure Name Priority Date/Time Associated Diagnosis Comments CBC W/DIFF AUTOMATED Routine 07/21/2020 12:20 PM AIRPORT SKILLED MAINTENANCE SUPERVISOR Acute ITP (CMS/HCC HHS/HCC) documented in this encounter Results * (ABNORMAL) CBC W/DIFF AUTOMATED (07/21/2020 12:20 PM AIRPORT SKILLED MAINTENANCE SUPERVISOR) WBC 9.5 4.5 - 10.8 x10'3/uL 07/21/2020 12:29 PM AIRPORT SKILLED MAINTENANCE SUPERVISOR [facility] RBC 4.69 4.10 - 5.40 x10'6/uL 07/21/2020 12:29 PM [facility] HGB 13.0 12.0 - 16.0 G/DL 07/21/2020 12:29 PM [facility] HCT 42.1 36.0 - 47.0 % 07/21/2020 12:29 PM [facility] MCV 89.8 78.0 - 100.0 FL 07/21/2020 12:29 PM [facility] MCH 27.7 27.0 - 31.0 PG 07/21/2020 12:29 PM [facility] MCHC 30.9(L) 33.0 - 36.0 G/DL 07/21/2020 12:29 PM [facility] RDW 14.4 11.5 - 14.5 % 07/21/2020 12:29 PM [facility] PLT 28(LL) 150 - 350 x10'3/uL 07/21/2020 12:29 PM [facility] Comment: CRITICAL VALUE CALLED TO MARIUM AT 1228 READ BACK AND VERIFIED RESULT CHECKED MPV RESULTS NOT AVAILABLE 7.4 - 10.4 FL 07/21/2020 12:29 PM [facility] DIFFERENTIAL COMMENT NORMAL REFERENCE RANGE NOT ESTABLISHED FOR THE PROPORTIONAL LEUKOCYTE DIFFERENTIAL. 07/21/2020 12:29 PM [facility] SEG NEUTROPHILS 62.3 % 0 12:39 PM [facility] LYMPHOCYTES 24.6 % 07/21/2020 12:39 PM [facility] MONOCYTES 4.6 % 07/21/2020 12:39 PM [facility] EOSINOPHILS 7.3 % 07/21/2020 12:39 PM [facility] BASOPHILS 0.8 % 07/21/2020 12:39 PM [facility] IMMATURE GRANS % 0.4 % 07/21/20 20 12:39 PM [facility] NRBC 0.0 % 07/21/2020 12:39 PM [facility] ABS. NEUTROPHILS 5.92 1.60 - 8.30 x10'3/uL 07/21/2020 12:39 PM AIRPORT SKILLED MAINTENANCE SUPERVISOR [facility] ABS. LYMPHOCYTES 2.34 0.80 - 4.70 x10'3/uL 07/21/2020 12:39 PM AIRPORT SKILLED MAINTENANCE SUPERVISOR [facility] ABS. MONOCYTES 0.44 0.00 - 1.50 x10'3/uL 07/21/2020 12:39 PM AIRPORT SKILLED MAINTENANCE SUPERVISOR [facility] ABS. EOSINOPHILS 0.69(H) 0.00 - 0.40 x10'3/uL 07/21/2020 12:39 PM AIRPORT SKILLED MAINTENANCE SUPERVISOR [facility] ABS. BASOPHILS 0.08 0.00 - 0.20 x10'3/uL 07/21/2020 12:39 PM AIRPORT SKILLED MAINTENANCE SUPERVISOR [facility] ABS. IMMATURE GRANULOCYTES 0.04(H) 0.00 - 0.03 x10'3/uL 07/21/2020 12:39 PM AIRPORT SKILLED MAINTENANCE SUPERVISOR [facility] ABS. NUCLEATED RBC'S 0.00 0.00 x10'3/uL 07/21/2020 12:39 PM AIRPORT SKILLED MAINTENANCE SUPERVISOR [facility] PLT MORPH. DECREASED 07/21/2020 12:39 PM [facility] RBC MORPHOLOGY 1+ 07/21/2020 12:39 PM [facility] Comment:POIKILOCYTOSIS 07/21/2020 12:2 0 PM AIRPORT SKILLED MAINTENANCE SUPERVISOR Roberta Alex MD LABORATORY Final Result [facility] [address] [place] [address], documented in this encounter Visit Diagnoses Diagnosis Acute ITP (CMS/HCC HHS/HCC) Immune thrombocytopenic purpura documented in this encounter Care Teams English Instructor Relationship Specialty Start Date End Date Alejandro Blevins MD PCP - General FAMILY PRACTICE 12/10/19 documented as of this encounter
--- OUTSIDE RECORDS SUMMARY | 2024-07-11 05:43 | XMS_ITS | Encounter Summary ---
Author Organization [facility] Address [facility] [place] [address] [place] [address] Care Team Providers Care Paper Rewinder Operator Name Role Phone Alejandro Blevins MD Primary Care Provider Encounter Details Date Type Department Care Team ([facility] Contact Info) Description 05/16/2020 Orders Only [facility] [place] [address] Tejinder Garcia, [facility] Social History Tobacco Use Types Packs/Day Years Used Date Smoking Tobacco: Every Day Smokeless Tobacco: Never Comments Yes Sex and Gender Information Value Date Recorded Sex Assigned at Not on file Legal Sex Female 11:30 PM GERIATRIC CARE MANAGER Gender Identity Female 11/10/2021 3:09 PM [...] (Late Contact Info) Description 09/25/2024 11:30 AM GERIATRIC CARE MANAGER Appointment [facility] [place] [address] Roberta Alex MD [address] [place] [address] 09/25/2024 11:40 AM GERIATRIC CARE MANAGER Office Visit [facility] [place] [address] [address] Roberta Alex MD [address] [place] [address] documented as of this encounter Results * (ABNORMAL) CBC W/DIFF AUTOMATED (09/09/2020 11:21 AM GERIATRIC CARE MANAGER) WBC 11.1(H) 4.5 - 10.8 x10'3/uL 09/09/2020 11:38 AM [facility] RBC 3.64(L) 4.10 - 5.40 x10'6/uL 09/09/2020 11:38 AM [facility] HGB 10.0(L) 12.0 - 16.0 G/DL 09/09/2020 11:38 AM [facility] HCT 32.1(L) 36.0 - 47.0 % 09/09/2020 11:38 AM [facility] MCV 88.2 78.0 - 100.0 FL 09/09/2020 11:38 AM [facility] MCH 27.5 27.0 - 31.0 PG 09/09/2020 11:38 AM [facility] MCHC 31.2(L) 33.0 - 36.0 G/DL 09/09/2020 11:38 AM [facility] RDW 14.0 11.5 - 14.5 % 09/09/2020 11:38 AM [facility] PLT 165 150 - 350 x10'3/uL 09/09/2020 11:38 AM [facility] MPV 12.0(H) 7.4 - 10.4 FL 09/09/2020 11:38 AM [facility] DIFFERENTIAL COMMENT NORMAL REFERENCE RANGE NOT ESTABLISHED FOR THE PROPORTIONAL LEUKOCYTE DIFFERENTIAL. 09/09/2020 11:38 AM [facility] SEG NEUTROPHILS 67.2 % 11:38 AM [facility] LYMPHOCYTES 26.0 % 09/09/2020 11:38 AM [facility] MONOCYTES 4.2 % 09/09/2020 11:38 AM [facility] EOSINOPHILS 1.8 % 09/09/2020 11:38 AM [facility] BASOPHILS 0.4 % 09/09/2020 11:38 AM [facility] IMMATURE GRANS % 0.4 % 09/09/19 11:38 AM GERIATRIC CARE MANAGER [facility] NRBC 0.0 % 09/09/2020 11:38 AM GERIATRIC CARE MANAGER [facility] ABS. NEUTROPHILS 7.49 1.60 - 8.30 x10'3/uL 09/09/2020 11:38 AM GERIATRIC CARE MANAGER [facility] ABS. LYMPHOCYTES 2.90 0.80 - 4.70 x10'3/uL 09/09/2020 11:38 AM [facility] ABS. MONOCYTES 0.47 0.00 - 1.50 x10'3/uL 09/09/2020 11:38 AM [facility] ABS. EOSINOPHILS 0.20 0.00 - 0.40 x10'3/uL 09/09/2020 11:38 AM GERIATRIC CARE MANAGER [facility] ABS. BASOPHILS 0.04 0.00 - 0.20 x10'3/uL 09/09/2020 11:38 AM [facility] ABS. IMMATURE GRANULOCYTES 0.04(H) 0.00 - 0.03 x10'3/uL 09/09/2020 11:38 AM [facility] ABS. NUCLEATED RBC'S 0.00 0.00 x10'3/uL 09/09/2020 11:38 AM [facility] 09/09/2020 11:2 1 AM GERIATRIC CARE MANAGER us Roberta Alex MD LABORATORY Final Result [facility] [address] [place] [address], * (ABNORMAL) CBC W/DIFF AUTOMATED (08/26/2020 9:30 AM GERIATRIC CARE MANAGER) Pathologist [facility] WBC 7.6 4.5 - 10.8 x10'3/uL 08/26/2020 10:10 AM [facility] RBC 4.81 4.10 - 5.40 x10'6/uL 08/26/2020 10:10 AM [facility] HGB 13.2 12.0 - 16.0 G/DL 08/26/2020 10:10 AM [facility] HCT 42.4 36.0 - 47.0 % 08/26/2020 10:10 AM [facility] MCV 88.1 78.0 - 100.0 FL 08/26/2020 10:10 AM [facility] MCH 27.4 27.0 - 31.0 PG 08/26/2020 10:10 AM [facility] MCHC 31.1(L) 33.0 - 36.0 G/DL 08/26/2020 10:10 AM [facility] RDW 13.8 11.5 - 14.5 % 08/26/2020 10:10 AM [facility] PLT 49(L) 150 - 350 x10'3/uL 08/26/2020 10:10 AM [facility] MPV RESULTS NOT AVAILABLE 7.4 - 10.4 FL 08/26/2020 10:10 AM [facility] DIFFERENTIAL COMMENT NORMAL REFERENCE RANGE NOT ESTABLISHED FOR THE PROPORTIONAL LEUKOCYTE DIFFERENTIAL. 08/26/2020 10:10 AM [facility] PLT MORPH. DECREASED 08/26/2020 10:10 AM [facility] RBC MORPHOLOGY 1+ 08/26/2020 10:10 AM [facility] Comment:ANISOCYTOSIS 08/26/2020 9:30 AM GERIATRIC CARE MANAGER us Roberta Alex MD LABORATORY Final Result [facility] [address] [place] [address], * (ABNORMAL) CBC W/DIFF AUTOMATED (08/12/2020 3:48 PM GERIATRIC CARE MANAGER) [facility] WBC 7.4 4.5 - 10.8 x10'3/uL 08/12/2020 3:57 PM GERIATRIC CARE MANAGER [facility] RBC 4.81 4.10 - 5.40 x10'6/uL 08/12/2020 3:57 PM GERIATRIC CARE MANAGER [facility] HGB 13.4 12.0 - 16.0 G/DL 08/12/2020 3:57 PM GERIATRIC CARE MANAGER [facility] HCT 42.9 36.0 - 47.0 % 08/12/2020 3:57 PM GERIATRIC CARE MANAGER [facility] MCV 89.2 78.0 - 100.0 FL 08/12/2020 3:57 PM GERIATRIC CARE MANAGER [facility] MCH 27.9 27.0 - 31.0 PG 08/12/2020 3:57 PM GERIATRIC CARE MANAGER [facility] MCHC 31.2(L) 33.0 - 36.0 G/DL 08/12/2020 3:57 PM [facility] RDW 13.9 11.5 - 14.5 % 08/12/2020 3:57 PM [facility] PLT 89(L) 150 - 350 x10'3/uL 08/12/2020 3:57 PM [facility] MPV 12.8(H) 7.4 - 10.4 FL 08/12/2020 3:57 PM [facility] DIFFERENTIAL COMMENT NORMAL REFERENCE RANGE NOT ESTABLISHED FOR THE PROPORTIONAL LEUKOCYTE DIFFERENTIAL. 08/12/2020 3:57 PM [facility] SEG NEUTROPHILS 51.0 % 4:29 PM GERIATRIC CARE MANAGER [facility] LYMPHOCYTES 33.0 % 08/12/2020 4:29 PM GERIATRIC CARE MANAGER [facility] MONOCYTES 5.4 % 08/12/2020 4:29 PM GERIATRIC CARE MANAGER [facility] EOSINOPHILS 9.4 % 08/12/2020 4:29 PM GERIATRIC CARE MANAGER [facility] BASOPHILS 0.9 % 08/12/2020 4:29 PM GERIATRIC CARE MANAGER [facility] IMMATURE GRANS % 0.3 % 08/12/19 4:29 PM GERIATRIC CARE MANAGER [facility] NRBC 0.0 % 08/12/2020 4:29 PM GERIATRIC CARE MANAGER [facility] ABS. NEUTROPHILS 3.77 1.60 - 8.30 x10'3/uL 08/12/2020 4:29 PM GERIATRIC CARE MANAGER [facility] ABS. LYMPHOCYTES 2.44 0.80 - 4.70 x10'3/uL 08/12/2020 4:29 PM GERIATRIC CARE MANAGER [facility] ABS. MONOCYTES 0.40 0.00 - 1.50 x10'3/uL 08/12/2020 4:29 PM GERIATRIC CARE MANAGER [facility] ABS. EOSINOPHILS 0.70(H) 0.00 - 0.40 x10'3/uL 08/12/2020 4:29 PM GERIATRIC CARE MANAGER [facility] ABS. BASOPHILS 0.07 0.00 - 0.20 x10'3/uL 08/12/2020 4:29 PM GERIATRIC CARE MANAGER [facility] ABS. IMMATURE GRANULOCYTES 0.02 0.00 - 0.03 x10'3/uL 08/12/2020 4:29 PM GERIATRIC CARE MANAGER [facility] ABS. NUCLEATED RBC'S 0.00 0.00 x10'3/uL 08/12/2020 4:29 PM GERIATRIC CARE MANAGER [facility] PLT MORPH. DECREASED 08/12/2020 4:29 PM GERIATRIC CARE MANAGER [facility] RBC MORPHOLOGY 1+ 08/12/2020 4:29 PM GERIATRIC CARE MANAGER [facility] Comment:ANISOCYTOSIS 08/12/2020 3:48 PM GERIATRIC CARE MANAGER us Roberta Alex MD LABORATORY Final Result [facility] [address] [place] [address], * (ABNORMAL) CBC W/DIFF AUTOMATED (07/30/2020 9:40 AM GERIATRIC CARE MANAGER) WBC 5.2 4.5 - 10.8 x10'3/uL 07/30/2020 9:50 AM GERIATRIC CARE MANAGER [facility] RBC 4.67 4.10 - 5.40 x10'6/uL 07/30/2020 9:50 AM [facility] HGB 13.0 12.0 - 16.0 G/DL 07/30/2020 9:50 AM [facility] HCT 41.9 36.0 - 47.0 % 07/30/2020 9:50 AM [facility] MCV 89.7 78.0 - 100.0 FL 07/30/2020 9:50 AM [facility] MCH 27.8 27.0 - 31.0 PG 07/30/2020 9:50 AM [facility] MCHC 31.0(L) 33.0 - 36.0 G/DL 07/30/2020 9:50 AM [facility] RDW 14.0 11.5 - 14.5 % 07/30/2020 9:50 AM [facility] PLT 15(LL) 150 - 350 x10'3/uL 07/30/2020 9:50 AM [facility] Comment: CRITICAL VALUE CALLED TO MARIUM AT 0950 READ BACK AND VERIFIED MPV RESULTS NOT AVAILABLE 7.4 - 10.4 FL 07/30/2020 9:50 AM [facility] DIFFERENTIAL COMMENT NORMAL REFERENCE RANGE NOT ESTABLISHED FOR THE PROPORTIONAL LEUKOCYTE DIFFERENTIAL. 07/30/2020 9:50 AM [facility] SEG NEUTROPHILS 74.9 % 9:57 AM [facility] LYMPHOCYTES 6.4 % 07/30/2020 9:57 AM [facility] MONOCYTES 4.7 % 07/30/2020 9:57 AM [facility] EOSINOPHILS 12.4 % 07/30/2020 9:57 AM [facility] BASOPHILS 1.4 % 07/30/2020 9:57 AM [facility] IMMATURE GRANS % 0.2 % 07/30/19 9:57 AM [facility] NRBC 0.0 % 07/30/2020 9:57 AM [facility] ABS. NEUTROPHILS 3.91 1.60 - 8.30 x10'3/uL 07/30/2020 9:57 AM GERIATRIC CARE MANAGER [facility] ABS. LYMPHOCYTES 0.33(L) 0.80 - 4.70 x10'3/uL 07/30/2020 9:57 AM [facility] ABS. MONOCYTES 0.24 0.00 - 1.50 x10'3/uL 07/30/2020 9:57 AM [facility] ABS. EOSINOPHILS 0.64(H) 0.00 - 0.40 x10'3/uL 07/30/2020 9:57 AM GERIATRIC CARE MANAGER [facility] ABS. BASOPHILS 0.07 0.00 - 0.20 x10'3/uL 07/30/2020 9:57 AM [facility] ABS. IMMATURE GRANULOCYTES 0.01 0.00 - 0.03 x10'3/uL 07/30/2020 9:57 AM [facility] ABS. NUCLEATED RBC'S 0.00 0.00 x10'3/uL 07/30/2020 9:57 AM [facility] PLT MORPH. DECREASED 07/30/2020 9:57 AM [facility] RBC MORPHOLOGY 1+ 07/30/2020 9:57 AM [facility] Comment:ANISOCYTOSIS 07/30/2020 9:40 AM GERIATRIC CARE MANAGER Roberta Alex MD LABORATORY Final Result [facility] [address] [place] [address], * (ABNORMAL) CBC W/DIFF AUTOMATED (07/29/2020 10:43 AM GERIATRIC CARE MANAGER) [facility] WBC 6.9 4.5 - 10.8 x10'3/uL 07/29/2020 10:56 AM GERIATRIC CARE MANAGER [facility] RBC 4.70 4.10 - 5.40 x10'6/uL 07/29/2020 10:56 AM [facility] HGB 13.1 12.0 - 16.0 G/DL 07/29/2020 10:56 AM [facility] HCT 42.7 36.0 - 47.0 % 07/29/2020 10:56 AM [facility] MCV 90.9 78.0 - 100.0 FL 07/29/2020 10:56 AM [facility] MCH 27.9 27.0 - 31.0 PG 07/29/2020 10:56 AM [facility] MCHC 30.7(L) 33.0 - 36.0 G/DL 07/29/2020 10:56 AM [facility] RDW 13.8 11.5 - 14.5 % 07/29/2020 10:56 AM [facility] PLT 20(LL) 150 - 350 x10'3/uL 07/29/2020 10:56 AM [facility] Comment: CRITICAL VALUE CALLED TO TANYA AT 1055 READ BACK AND VERIFIED RESULT CHECKED MPV RESULTS NOT AVAILABLE 7.4 - 10.4 FL 07/29/2020 10:56 AM [facility] DIFFERENTIAL COMMENT NORMAL REFERENCE RANGE NOT ESTABLISHED FOR THE PROPORTIONAL LEUKOCYTE DIFFERENTIAL. 07/29/2020 10:56 AM [facility] SEG NEUTROPHILS 57.1 % 11:19 AM [facility] LYMPHOCYTES 27.2 % 07/29/2020 11:19 AM [facility] MONOCYTES 5.2 % 07/29/2020 11:19 AM [facility] EOSINOPHILS 9.5 % 07/29/2020 11:19 AM [facility] BASOPHILS 0.9 % 07/29/2020 11:19 AM [facility] IMMATURE GRANS % 0.1 % 07/29/19 11:19 AM [facility] NRBC 0.0 % 07/29/2020 11:19 AM [facility] ABS. NEUTROPHILS 3.93 1.60 - 8.30 x10'3/uL 07/29/2020 11:19 AM [facility] ABS. LYMPHOCYTES 1.88 0.80 - 4.70 x10'3/uL 07/29/2020 11:19 AM [facility] ABS. MONOCYTES 0.36 0.00 - 1.50 x10'3/uL 07/29/2020 11:19 AM [facility] ABS. EOSINOPHILS 0.66(H) 0.00 - 0.40 x10'3/uL 07/29/2020 11:19 AM [facility] ABS. BASOPHILS 0.06 0.00 - 0.20 x10'3/uL 07/29/2020 11:19 AM [facility] ABS. IMMATURE GRANULOCYTES 0.01 0.00 - 0.03 x10'3/uL 07/29/2020 11:19 AM [facility] ABS. NUCLEATED RBC'S 0.00 0.00 x10'3/uL 07/29/2020 11:19 AM [facility] PLT MORPH. DECREASED 07/29/2020 11:19 AM [facility] RBC MORPHOLOGY 1+ 07/29/2020 11:19 AM [facility] Comment:ANISOCYTOSIS 07/29/2020 10:4 3 AM GERIATRIC CARE MANAGER us Roberta Alex MD LABORATORY Final Result [facility] [address] [place] [address], * (ABNORMAL) CBC W/DIFF AUTOMATED (07/08/2020 11:55 AM GERIATRIC CARE MANAGER) WBC 8.7 4.5 - 10.8 x10'3/uL 07/08/2020 12:04 PM [facility] RBC 4.24 4.10 - 5.40 x10'6/uL 07/08/2020 12:04 PM [facility] HGB 12.1 12.0 - 16.0 G/DL 07/08/2020 12:04 PM [facility] HCT 39.4 36.0 - 47.0 % 07/08/2020 12:04 PM [facility] MCV 92.9 78.0 - 100.0 FL 07/08/2020 12:04 PM [facility] MCH 28.5 27.0 - 31.0 PG 07/08/2020 12:04 PM [facility] MCHC 30.7(L) 33.0 - 36.0 G/DL 07/08/2020 12:04 PM [facility] RDW 15.5(H) 11.5 - 14.5 % 07/08/2020 12:04 PM [facility] PLT 26(LL) 150 - 350 x10'3/uL 07/08/2020 12:04 PM [facility] Comment: CRITICAL VALUE CALLED TO MARIUM AT 1204 READ BACK AND VERIFIED RESULT CHECKED MPV RESULTS NOT AVAILABLE 7.4 - 10.4 FL 07/08/2020 12:04 PM [facility] DIFFERENTIAL COMMENT NORMAL REFERENCE RANGE NOT ESTABLISHED FOR THE PROPORTIONAL LEUKOCYTE DIFFERENTIAL. 07/08/2020 12:04 PM [facility] SEG NEUTROPHILS 67.7 % 0 12:17 PM [facility] LYMPHOCYTES 21.5 % 07/08/2020 12:17 PM [facility] MONOCYTES 4.0 % 07/08/2020 12:17 PM [facility] EOSINOPHILS 5.8 % 07/08/2020 12:17 PM [facility] BASOPHILS 0.8 % 07/08/2020 12:17 PM [facility] IMMATURE GRANS % 0.2 % 07/08/20 20 12:17 PM [facility] NRBC 0.0 % 07/08/2020 12:17 PM [facility] ABS. NEUTROPHILS 5.89 1.60 - 8.30 x10'3/uL 07/08/2020 12:17 PM [facility] ABS. LYMPHOCYTES 1.87 0.80 - 4.70 x10'3/uL 07/08/2020 12:17 PM [facility] ABS. MONOCYTES 0.35 0.00 - 1.50 x10'3/uL 07/08/2020 12:17 PM GERIATRIC CARE MANAGER [facility] ABS. EOSINOPHILS 0.50(H) 0.00 - 0.40 x10'3/uL 07/08/2020 12:17 PM GERIATRIC CARE MANAGER [facility] ABS. BASOPHILS 0.07 0.00 - 0.20 x10'3/uL 07/08/2020 12:17 PM GERIATRIC CARE MANAGER [facility] ABS. IMMATURE GRANULOCYTES 0.02 0.00 - 0.03 x10'3/uL 07/08/2020 12:17 PM GERIATRIC CARE MANAGER [facility] ABS. NUCLEATED RBC'S 0.00 0.00 x10'3/uL 07/08/2020 12:17 PM GERIATRIC CARE MANAGER [facility] PLT MORPH. DECREASED 07/08/2020 12:17 PM [facility] RBC MORPHOLOGY NORMAL 07/08/2020 12:17 PM [facility] 07/08/2020 11:5 5 AM GERIATRIC CARE MANAGER Roberta Alex MD LABORATORY Final Result [facility] [address] [place] [address], documented in this encounter Visit Diagnoses Diagnosis Chronic ITP (idiopathic thrombocytopenia) (CMS/HCC [facility]/HCC)- Primary Immune thrombocytopenic purpura Anemia Anemia, unspecified documented in this encounter Care Teams Paper Rewinder Operator Relationship Specialty Start Date End Date Alejandro Blevins MD PCP - General FAMILY PRACTICE 12/10/19 documented as of this encounter
--- OUTSIDE RECORDS SUMMARY | 2024-07-11 05:43 | XMS_ITS | Encounter Summary ---
Author Organization [facility] Address [address] [place] [address]. [place] [address] [place] [address] Care Team Providers Care Shearer [employer]ed [employer] Boards Name Role Phone Alejandro Blevins MD Primary Care Provider Encounter Details Date Type Department Care Team (Latest Contact Info) Description 07/08/2020 11:20 AM COLD STORAGE SUPERVISOR - 07/08/2020 11:59 PM COLD STORAGE SUPERVISOR Hospital Encounter [address] [place] [address] Roberta Alex MD [address] [place], [place] [address] Discharge Disposition: Home or Self Care (Routine Discharge) Social History Tobacco Use Types Packs/Day Years Used Date Smoking Tobacco: Every Day Smokeless Tobacco: Never Comments Yes Sex and Gender Information Value Date Recorded Sex Assigned at Not on file Legal Sex Female 11:30 PM COLD STORAGE SUPERVISOR Gender Identity Female 11/10/2021 3:09 PM CDT Sexual Orientation Straight 11/10/2021 3: 09 PM CDT COVID-19 Exposure Response Date Recorded In the last month, have you been in contact with someone who was confirmed or suspected to have Coronavirus / COVID-19? No / Unsure 07/08/2020 11:36 AM COLD STORAGE SUPERVISOR documented as of this encounter Medications at Time of Discharge aspirin-acetamino phen-caffeine 250-250-65 MG tablet Take 1 tablet by mouth every 6 (six) hours as needed for Pain. 07/29/2020 calcium carbonate 500 MG chewable tablet Chew 1 tablet by mouth every 2 (two) hours as needed. 01/23/2020 07/29/2020 dexamethasone 20 MG TabIndications:Ac jessica ITP ([facility] HHS/HCC) Take 40 mg by mouth daily for 4 days. 8 tablet 07/08/2020 07/12/2020 ferrous sulfate, 65 mg elemental, 325 (65 FE) MG tablet Take 325 mg by mouth daily. 12/09/2019 07/29/2020 folic acid 1 MG tabletIndications :Iron deficiency anemia secondary to inadequate dietary iron intake,Acute ITP ([facility] HHS/HCC) Take 1 tablet (1 mg total) [...] st Contact Info) Description 09/25/2024 11:30 AM COLD STORAGE SUPERVISOR Appointment [facility] [address] [place] [address] Roberta Alex MD [address] [place] [id number] 09/25/2024 11:40 AM COLD STORAGE SUPERVISOR Office Visit [facility] [place] [address] [place] [address] Roberta Alex MD [address] [place] [id number] documented as of this encounter Procedures Procedure Name Priority Date/Time Associated Diagnosis Comments CARDIOLIPIN ANTIBODIES (IGG,IGA,IGM) Routine 07/08/2020 11:55 AM COLD STORAGE SUPERVISOR Anemia Iron deficiency anemia secondary to inadequate dietary iron intake Chronic ITP (idiopathic thrombocytopenia) ([facility] HHS/HCC) VITAMIN B-12 Routine 07/08/2020 11:55 AM COLD STORAGE SUPERVISOR Anemia Iron deficiency anemia secondary to inadequate dietary iron intake Chronic ITP (idiopathic thrombocytopenia) (CMS/HCC HHS/HCC) CBC W/DIFF AUTOMATED Routine 07/08/2020 11:55 AM COLD STORAGE SUPERVISOR Chronic ITP (idiopathic thrombocytopenia) (CMS/HCC HHS/HCC) Anemia FERRITIN Routine 07/08/2020 11:55 AM COLD STORAGE SUPERVISOR Anemia Iron deficiency anemia secondary to inadequate dietary iron intake Chronic ITP (idiopathic thrombocytopenia) (CMS/HCC HHS/HCC) documented in this encounter Results * (ABNORMAL) CARDIOLIPIN ANTIBODIES (IGG,IGA,IGM) (07/08/2020 11:55 AM COLD STORAGE SUPERVISOR) Pathologist [facility] CARDIOLIPIN AB IGG <14 <=14 GPL 2019 2:29 AM [employer]UST [employer] JUSTIN PEACE Comment: Cardiolipin Ab (IgG) Reference Range: Value ? Interpretation ? < or = 14 ? Negative 15 - 20 ? Indeterminate 21 - 80 ? Low to Medium Positive > 80 ?High Positive CARDIOLIPIN AB IGM 41(H) <=12 MPL 2019 2:29 AM COLD STORAGE SUPERVISOR [employer] JUSTIN PEACE Comment: >40 MPL is a [...] drug therapy or aging. Test Performed by Jaco SolarsiScott, [facility], [address] [place], [place] Hank Landin M.D., Ph.D., Director of Laboratories , [place] [id number] CARDIOLIPIN AB IGA <11 <=11 APL 2019 2:29 AM COLD STORAGE SUPERVISOR [employer] PILLAISCARLETT PEACE Comment: Cardiolipin Ab (IgA) Reference Range: Value ? Interpretation ? < or = 11 ? Negative 12 - 20 ? Indeterminate 21 - 80 ? Low to Medium Positive > 80 ?High Positive 07/08/2020 11:5 5 AM COLD STORAGE SUPERVISOR Roberta Alex MD LABORATORY Final Result Performing Organization Address [facility]/ZIP Co de Phone Number [place] [phone] [place], [place] , * VITAMIN B-12 (07/08/2020 11:55 AM COLD STORAGE SUPERVISOR) Pathologist [facility] VITAMIN B12 S/P/B 919 193 - 986 PG/ML 07/09/2020 6:17 PM COLD STORAGE SUPERVISOR [facility] 07/08/2020 11:5 5 AM COLD STORAGE SUPERVISOR Roberta Alex MD LABORATORY Final Result [facility] [address] [place] [address], [place] [phone] [id number] * FERRITIN (07/08/2020 11:55 AM COLD STORAGE SUPERVISOR) FERRITIN 21.1 8 - 252 NG/ML 07/08/2020 12:35 PM COLD STORAGE SUPERVISOR [facility] 07/08/2020 11:5 5 AM COLD STORAGE SUPERVISOR Roberta Alex MD LABORATORY Final Result [facility] [address] [place] [address], [place] [phone] * (ABNORMAL) CBC W/DIFF AUTOMATED (07/08/2020 11:55 AM COLD STORAGE SUPERVISOR) WBC 8.7 4.5 - 10.8 x10'3/uL 07/08/2020 12:04 PM [facility] RBC 4.24 4.10 - 5.40 x10'6/uL 07/08/2020 12:04 PM [facility] HGB 12.1 12.0 - 16.0 G/DL 07/08/2020 12:04 PM [facility] HCT 39.4 36.0 - 47.0 % 07/08/2020 12:04 PM [facility] MCV 92.9 78.0 - 100.0 FL 07/08/2020 12:04 PM [facility] MCH 28.5 27.0 - 31.0 PG 07/08/2020 12:04 PM [facility] MCHC 30.7(L) 33.0 - 36.0 G/DL 07/08/2020 12:04 PM [facility] RDW 15.5(H) 11.5 - 14.5 % 07/08/2020 12:04 PM [facility] PLT 26(LL) 150 - 350 x10'3/uL 07/08/2020 12:04 PM [facility] Comment: CRITICAL VALUE CALLED TO MARIUM AT 1204 READ BACK AND VERIFIED RESULT CHECKED MPV RESULTS NOT AVAILABLE 7.4 - 10.4 FL 07/08/2020 12:04 PM [facility] DIFFERENTIAL COMMENT NORMAL REFERENCE RANGE NOT ESTABLISHED FOR THE PROPORTIONAL LEUKOCYTE DIFFERENTIAL. 07/08/2020 12:04 PM [facility] SEG NEUTROPHILS 67.7 % 0 12:17 PM [facility] LYMPHOCYTES 21.5 % 07/08/2020 12:17 PM [facility] MONOCYTES 4.0 % 07/08/2020 12:17 PM [facility] EOSINOPHILS 5.8 % 07/08/2020 12:17 PM [facility] BASOPHILS 0.8 % 07/08/2020 12:17 PM [facility] IMMATURE GRANS % 0.2 % 07/08/20 20 12:17 PM [facility] NRBC 0.0 % 07/08/2020 12:17 PM [facility] ABS. NEUTROPHILS 5.89 1.60 - 8.30 x10'3/uL 07/08/2020 12:17 PM [facility] ABS. LYMPHOCYTES 1.87 0.80 - 4.70 x10'3/uL 07/08/2020 12:17 PM [facility] ABS. MONOCYTES 0.35 0.00 - 1.50 x10'3/uL 07/08/2020 12:17 PM [facility] ABS. EOSINOPHILS 0.50(H) 0.00 - 0.40 x10'3/uL 07/08/2020 12:17 PM [facility] ABS. BASOPHILS 0.07 0.00 - 0.20 x10'3/uL 07/08/2020 12:17 PM [facility] ABS. IMMATURE GRANULOCYTES 0.02 0.00 - 0.03 x10'3/uL 07/08/2020 12:17 PM [facility] ABS. NUCLEATED RBC'S 0.00 0.00 x10'3/uL 07/08/2020 12:17 PM [facility] PLT MORPH. DECREASED 07/08/2020 12:17 PM COLD STORAGE SUPERVISOR [facility] RBC MORPHOLOGY NORMAL 07/08/2020 12:17 PM COLD STORAGE SUPERVISOR [facility] 07/08/2020 11:5 5 AM COLD STORAGE SUPERVISOR Roberta Alex MD LABORATORY Final Result [facility] [address] [place] [address], documented in this encounter Visit Diagnoses Diagnosis Chronic ITP (idiopathic thrombocytopenia) ([facility]/HCC) Immune thrombocytopenic purpura Anemia Anemia, unspecified Iron deficiency anemia secondary to inadequate dietary iron intake documented in this encounter Care Teams [employer] Relationship Specialty Start Date End Date Alejandro Blevins MD PCP - General FAMILY PRACTICE 12/10/19 documented as of this encounter
--- OUTSIDE RECORDS SUMMARY | 2024-07-11 05:43 | XMS_ITS | Encounter Summary ---
Author Organization [facility] Address [address] [place] [address]. [place] [address] [place] [address] Care Team Providers Care Silk Screen Layout Drafter Name Role Phone Alejandro Blevins MD Primary Care Provider [phone] Encounter Details Date Type Department Care Team (Latest Contact Info) Description 07/29/2020 Travel Social History Tobacco Use Types Packs/Day Years Used Date Smoking Tobacco: Every Day Smokeless Tobacco: Never Comments Yes Sex and Gender Information Value Date Recorded Sex Assigned at Not on file Legal Sex Female 11:30 PM BUILDING ANALYST/SUPERVISOR Gender Identity Female 11/10/2021 3:09 PM CDT Sexual Orientation Straight 11/10/2021 3: 09 PM CDT COVID-19 Exposure Response Date Recorded In the last month, have you been in contact with someone who was confirmed or suspected to have Coronavirus / COVID-19? No / Unsure 07/29/2020 10:35 AM BUILDING ANALYST/SUPERVISOR documented as of this encounter Plan of Treatment Upcoming Encounters Date Type Department Care Team (Late st Contact Info) Description 09/25/2024 11:30 AM BUILDING ANALYST/SUPERVISOR Appointment [facility] [address] [place] [address] Roberta Alex MD [address] [place] [address] 09/25/2024 11:40 AM BUILDING ANALYST/SUPERVISOR Office Visit [facility] [address] [place] [address] Roberta Alex MD [address] [place] [address] documented as of this encounter Visit Diagnoses Not on filedocumented in this encounter Care Teams Silk Screen Layout Drafter Relationship Specialty Start Date End Date Alejandro Blevins MD PCP - General FAMILY PRACTICE 12/10/19 documented as of this encounter
--- OUTSIDE RECORDS SUMMARY | 2024-07-11 05:43 | XMS_ITS | Encounter Summary ---
Author Organization [facility] Address [address] [place] [address]. 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 No / Unsure 07/21/2020 12:03 PM BERRY PICKER MACHINE OPERATOR documented as of this encounter Progress Notes * Roberta Alex MD - 07/21/2020 5:01 PM CST Called pt with instructions Y PICKER MACHINE OPERATOR documented in this encounter Plan of Treatment Upcoming Encounters Date Type Department Care Team (Late Contact Info) Description 09/25/2024 11:30 AM BERRY PICKER MACHINE OPERATOR Appointment [facility] [address] [place] [address] Roberta Alex MD [address] [place] [address] 09/25/2024 11:40 AM BERRY PICKER MACHINE OPERATOR Office Visit [address] [place] [address] Roberta Alex MD [address] [place] [address] documented as of this encounter Visit Diagnoses Not on filedocumented in this encounter Care Teams Fiberglasser Relationship Specialty Start Date End Date Alejandro Blevins MD PCP - General FAMILY PRACTICE 12/10/19 documented as of this encounter
--- OUTSIDE RECORDS SUMMARY | 2024-07-11 05:43 | XMS_ITS | Encounter Summary ---
Author Organization [facility] Address [address] [place] [address]. [place] [address] [place] [address] Care Team Providers Care Brick Unloader Tender Name Role Phone Alejandro Blevins MD Primary Care Provider [phone] Encounter Details Date Type Department Care Team (Latest Contact Info) Description 04/29/2020 Travel Social History Tobacco Use Types Packs/Day Years Used Date Smoking Tobacco: Every Day Smokeless Tobacco: Never Comments Yes Sex and Gender Information Value Date Recorded Sex Assigned at Not on file Legal Sex Female 11:30 PM DIRECTOR OF MUSIC THERAPY Gender Identity Female 11/10/2021 3:09 PM CDT Sexual Orientation Straight 11/10/2021 3: 09 PM CDT COVID-19 Exposure Response Date Recorded In the last month, have you been in contact with someone who was confirmed or suspected to have Coronavirus / COVID-19? No / Unsure 04/29/2020 9:10 AM CDT documented as of this encounter Plan of Treatment Upcoming Encounters Date Type Department Care Team (Late st Contact Info) Description 09/25/2024 11:30 AM DIRECTOR OF MUSIC THERAPY Appointment [facility] [address] [place] [address] Roberta Alex MD [address] [place] [address] 09/25/2024 11:40 AM DIRECTOR OF MUSIC THERAPY Office Visit [facility] [address] [place] [address] Roberta Alex MD [address] [place] [address] documented as of this encounter Visit Diagnoses Not on filedocumented in this encounter Care Teams Brick Unloader Tender Relationship Specialty Start Date End Date Alejandro Blevins MD PCP - General FAMILY PRACTICE 12/10/19 documented as of this encounter
--- OUTSIDE RECORDS SUMMARY | 2024-07-11 05:43 | XMS_ITS | Encounter Summary ---
Author Organization [facility] Address [address] [place] [address]. [place] [address] [place] [address] Care Team Providers Care Foxpro Developer Name Role Phone Alejandro Boss MD Primary Care Provider [phone] Reason for Visit * Reason Comments Low Blood Count * Auth/Cert Specialty Diagnoses / Procedures Referred By Contac t Referred To Contact Diagnoses Thrombocytopenia (CMS/HCC) Thrombocytopenia (CMS/HCC) Procedures GENERAL Referral ID Status Reason Start Date Expiration Date Visits Re quested Visits Authorized [id number] 1 1 Encounter Details Date Type Department Care Team (Latest Contact Info) Description 07/30/2020 1:58 PM RESIDENTIAL COLLECTIONS - 07/31/2020 4:41 PM RESIDENTIAL COLLECTIONS Hospital Encounter [facility] [address] [place] [address] Ania Be, CUSTODIAL MAINTENANCE WORKER [address] [place], [place] [id number] Sherice Duarte MD [address] [place] [id number] Boom Ortez MD [address] [place] [address] Low Blood Count Discharge Disposition: Home or Self Care (Routine Discharge) Social History Tobacco Use Types Packs/Day Years Used Date Smoking Tobacco: Former Smokeless Tobacco: Current Comments Yes Sex and Gender Information Value Date Recorded Sex Assigned at Not on file Legal Sex Female 11:30 PM RESIDENTIAL COLLECTIONS Gender Identity Female 11/10/2021 3:09 PM CDT Sexual Orientation Straight 11/10/2021 3: 09 PM CDT COVID-19 Exposure Response Date Recorded In the last month, have you been in contact with someone who was confirmed or suspected to have Coronavirus / COVID-19? No / Unsure 07/30/2020 1:19 PM RESIDENTIAL COLLECTIONS documented as of this encounter Last Filed Vital Signs Vital Sign Reading Time Taken Comments Blood Pressure 113/80 07/31/2020 2:45 PM RESIDENTIAL COLLECTIONS Pulse 57 07/31/2020 2:45 PM RESIDENTIAL COLLECTIONS Temperature 36.8 ??C (98.2 ??F) 07/31/2020 11:[address] Respiratory Rate 16 07/31/2020 8:05 AM RESIDENTIAL COLLECTIONS Oxygen Saturation 100% 07/31/2020 2:45 PM RESIDENTIAL COLLECTIONS Inhaled Oxygen Concentration - - Weight 60.8 kg (134 lb 0.6 oz) 07/30/2020 1:23 P M RESIDENTIAL COLLECTIONS Height 160 cm (5' 3 ) 07/30/2020 1:23 PM RESIDENTIAL COLLECTIONS Body Mass Index 23.74 07/30/2020 1:23 PM RESIDENTIAL COLLECTIONS documented in this encounter Functional Status * Question Answer Date of Assessment Author Status Do you have serious difficulty walking or climbing stairs? No 07/30/2020 10:46 PM RESIDENTIAL COLLECTIONS Renita Le RN Active * Question Answer Date of Assessment Author Status Do you have difficulty dressing or bathing? No 07/30/2020 10:46 PM Nichole Leonardo sa, RN Active Because of a physical, mental, or emotional condition, do you have difficulty doing errands alone such as visiting a doctor's office or shopping? No 07/30/2020 10:46 PM Renita Leonardo RN Active * RETIRED Are you deaf or do you have serious difficulty hearing Answer Date of Assessment Author Status No 07/30/2020 10:48 PM RESIDENTIAL COLLECTIONS Acti ve * RETIRED Are you blind or do you have serious difficulty seeing, even when wearing glasses? Answer Date of Assessment Author Status No 07/30/2020 10:46 PM RESIDENTIAL COLLECTIONS Acti ve * Do you have serious difficulty walking or climbing stairs? Answer Date of Assessment Author Status No 07/30/2020 10:46 PM RESIDENTIAL COLLECTIONS Hossein Le RN Active * Do you have difficulty dressing or bathing? Answer Date of Assessment Author Status No 07/30/2020 10:46 PM RESIDENTIAL COLLECTIONS Hossein Le RN Active * Because of a physical, mental, or emotional condition, do you have difficulty doing errands alone such as visiting a doctor's office or shopping? Answer Date of Assessment Author Status No 07/30/2020 10:46 PM Hossein eLonardo RN Active documented as of this encounter Mental Status * Question Answer Entry Date Author Status Because of a physical, mental, or emotional condition, do you have serious difficulty concentrating, remembering, or making decisions? No 07/30/2020 10:46 PM Hossein Leonardo RN Active * Because of a physical, mental, or emotional condition, do you have serious difficulty concentrating, remembering, or making decisions? Answer Entry Date Author Status No 07/30/2020 10:46 PM Hossein Leonardo RN Active documented in this encounter Discharge Summaries * Sherice Duarte MD - 07/31/2020 2:09 PM CST Images from the original note were not included. [place] Hospitalist Discharge Summary Hillary Do female 1990 Admit Date: 07/30/2020 1:58 PM Discharge date and time: 07/31/2020 Primary Care Physician: ALEJANDRO BOSS MD Discharge Physician: Sherice Duarte MD Admission Diagnosis: Thrombocytopenia (CMS/HCC) [D69.6] Discharge Diagnosis: Patient Active Problem List Diagnosis ??? Anemia ??? Hepatitis C virus infection without hepatic coma ??? Polysubstance abuse (CMS/HCC) ??? Thrombocytopenia affecting (CMS/HCC) ??? Transaminitis ??? Twin ??? Iron deficiency anemia secondary to inadequate dietary iron intake ??? Other dietary vitamin B12 deficiency anemia ??? Chronic ITP (idiopathic thrombocytopenia) (CMS/HCC) ??? Thrombocytopenia (CMS/HCC) ??? Anti-cardiolipin antibody positive Discharged Condition: Improved and stable Consultants: Remote Mortgage Underwriter Dr. Hinkle Significant Diagnostic Studies: CBC Findings that require further workup: CBC Follow up Lab Orders: CBC Discharge Medications: Medication List START taking these medications predniSONE 50 MG tablet Take 1 tablet (50 mg total) by mouth daily for 5 days. CONTINUE taking these medications Sofosbuvir-Velpatasvir 400-100 MG Tabs STOP taking these medications naproxen sodium 220 MG tablet Commonly known as: ANAPROX Where to Get Your Medications These medications were sent to [facility] - [place], [place] - [address] [facility] [place] [address] ?? predniSONE 50 MG tablet Medications discontinued during this hospitalization: Naproxen Disposition: home Patient Instructions: Activity: Activity & DME Activity as tolerated Diet: Diet Diet general Follow up: / Abi on Summary of Hospital Course: Patient was admitted for thrombocytopenia and platelet count of 16 without any active bleeding. Please see admission note for detailed H&P. Patient has a history of thrombocytopenia and also hepatitis C on antiviral medications. She was recently in ICU at [place] after bleeding requiring prolonged ICU stay. For thrombocytopenia she was admitted as per the request her customer retention representative Dr. Hinkle. She was evaluated on the day of admission and had a good response to IVIG and 1 unit of plat transfusion. Next day herplatelet was up to 30. She tells me overnight she was having chills mild shortness of breath and headache after platelet transfusion for which she received Tylenol and Benadryl. She had good response to it. Today her platelet is up to 30. Per hematology, will give 0.5 g/kg of IVIG today and anticipate discharge after that per patient's request. She otherwise denies any chest pain, shortness of it, nausea vomiting fevers or chills. She will be discharged on prednisone 50 mg for 5 days and is advised to follow-up with her customer retention representative on Tuesday and repeat CBC tomorrow. Discussed with the patient in great detail. Her questions were answered. There is no evidence of active bleeding. She was advised to discontinue her naproxen until seen by her customer retention representative and her thrombocytopenia has resolved. She verbalized understanding and is in agreement with the plan. She will be discharged in stable condition. -- Please continue medications as listed. Please follow-up with your primary care doctor and rest of doctors as listed above. If you develop any fever, sob, abdominal pain, persistent vomiting, diarrhea, chest pain notify provider or come to ER immediately. You need to have follow-up labs done and report to your primary care doctor/consulting doctors accordingly Time spent on discharge: 40 minutes Wt Readings from Last 3 Encounters: 07/30/20 60.8 kg (134 lb 0.6 oz) 07/30/20 59.4 kg (131 lb) 07/29/20 59.7 kg (131 lb 9.8 oz) Temp Readings from Last 3 Encounters: 07/31/20 98.2 ??F (36.8 ??C) 07/30/20 97.9 ??F (36.6 ??C) (Temporal) 07/29/20 97.5 ??F (36.4 ??C) (Temporal) BP Readings from Last 3 Encounters: 07/31/20 122/77 07/30/20 114/73 07/29/20 137/73 Pulse Readings from Last 3 Encounters: 07/31/20 57 07/30/20 73 07/29/20 73 Imaging Diagnostic Studies No results found. Physical Exam Constitutional: She is oriented to person, place, and time and well-developed, well-nourished, and in no distress. HENT: Head: Normocephalic and atraumatic. Eyes: Pupils are equal, round, and reactive to light. EOM are normal. Neck: Normal range of motion. Neck supple. Cardiovascular: Normal rate and regular rhythm. Pulmonary/Chest: Effort normal and breath sounds normal. Abdominal: Soft. Bowel sounds are normal. Musculoskeletal: Normal range of motion. Neurological: She is alert and oriented to person, place, and time. Signed Sherice Duarte MD DENTIAL COLLECTIONS documented in this encounter Discharge Instructions * Attachments The following attachments cannot be sent through Care Everywhere. * Heparin-Induced Thrombocytopenia Discharge Instructions ([facility]) * Immune Thrombocytopenia (ITP) ([facility]) * Platelet Count Test ([facility]) documented in this encounter Medications at Time of Discharge predniSONE 50 MG tablet Take 1 tablet (50 mg total) by mouth daily for 5 days. 5 tablet 07/31/2020 08/05/2020 Sofosbuvir-Velpat asvir 400-100 MG Tab Take 1 tablet by mouth daily. 06/17/2020 01/06/2021 documented as of this encounter Progress Notes * Roberta Hinkle MD - 07/31/2020 3:17 PM CST Identifying Data Hillary Do is a 30-year-old female. Subjective: Tolerated IVIG well. Reported chills with platelet transfusion and felt fatigued after that. No fevers. No bleeding. Menstrual cycle still mild. Review of Systems: General: Fatigue Nose/ Sinuses: No epistaxis Respiratory: No dyspnea or cough Cardiac: No chest pain Gastrointestinal: No melena Urinary: No hematuria Hematologic/Lymphatic: Menstrual cycle as above Psych: Anxious to get discharged Endocrine: No symptoms Pertinent History: Past Medical History: Diagnosis Date ??? Acute ITP (CMS/HCC) ??? Anemia ??? History of blood transfusion Pertinent family history is not on file. Social History Socioeconomic History ??? Marital status: [...] file Gets together: Not on file Attends tenriism service: Not on file Active member of [...] surgical history. Current Outpatient Medications Medication Sig ??? predniSONE 50 MG tablet Take 1 tablet (50 mg total) by mouth daily for 5 days. Allergies Allergen Reactions ??? Bee Venom Anaphylaxis ??? Shellfish Allergy Anaphylaxis Objective Vitals Height: 5' 3 (1.6 m) , Weight: 60.8 kg (134 lb 0.6 oz) , BSA (Calculated - sq m): 1.64 sq meters , BP: 113/80 , Temp: 98.2 ??F (36.8 ??C) , Pulse: 57 , Resp: 16 Physical Exam General: The patient appears comfortable and in no acute distress. Eyes: Conjunctiva- normal. Ears, Nose, Mouth and Throat: Oropharynx is clear and without lesions. Dentition and gums are intact. Neck: Supple, No enlarged lymph nodes or masses felt Pulmonary: Respiratory effort: No increased work of breathing or signs of respiratory distress. Auscultation of lungs: Clear to auscultation. No wheezes, rales or rhonchi. Cardiovascular: Auscultation of heart: Normal rate and rhythm, normal S1 and S2, no murmurs. No lower extremity edema present bilaterally. Abdomen: Soft, non tender, no masses. Lymphatic Palpation of lymph nodes in neck: No lymphadenopathy. Neurologic: Alert, oriented x 3. Grossly non-focal. Psychiatric: The patient's affect is not blunted and mood is appropriate. Physical Exam Laboratory CBC: ABS. NEUTROPHILS Date Value Ref Range Status 07/30/2020 3.91 1.60 - 8.30 x10'3/uL Final WBC Date Value Ref Range Status 07/31/2020 6.8 4.0 - 10.8 x10'3/uL Final HGB Date Value Ref Range Status 07/31/2020 11.3 (L) 12.0 - 16.0 G/DL Final HCT Date Value Ref Range Status 07/31/2020 36.2 36.0 - 47.0 % Final PLT Date Value Ref Range Status 07/31/2020 30 (L) 150 - 350 x10'3/uL Final CMP: CREATININE S/P/B Date Value Ref Range Status 07/31/2020 0.76 0.55 - 1.02 MG/DL Final BILIRUBIN TOTAL S/P/B Date Value Ref Range Status 07/08/2020 0.3 0.2 - 1.0 MG/DL Final Comment: THIS ASSAY IS NOT RECOMMENDED FOR PATIENTS UNDERGOING TREATMENT WITH ELTROMBOPAG DUE TO THE POTENTIAL FOR FALSELY ELEVATED RESULTS. Tumor Markers: Fibrinogen Date Value Ref Range Status 07/30/2020 197 (L) 200 - 393 MG/DL Final Imaging Radiology Results (Last 30 days) None Assessment and Plan 1.?Acute on chronic thrombocytopenia: secondary to HCV infection and??immune mediated, less likely drug related. No improvement with??dexamethasone 40 mg once daily x 4 days??(07/16-07/20). Repeat CBC with further decline to 20K-->15K (07/30). S/p IVIG 1 g/kg x 1 2. History of iron deficiency, B12 deficiency, folic acid deficiency. Hgb improved with oral supplements. Monitor 3. ??Chronic HCV infection: Currently on HCV antiviral treatment and follows with [facility] hepatology team. 4. Polysubstance abuse:. ??Patient has quit using recreational drugs. Commended on efforts 5. Concern for APLS:??Positive Anti - Cardiolipin IGM (~40) with negative Anti B2 GP IGG/IGM , LA test negative, MARQUITA negative.??Hold ASA due to thrombocytopenia ?? Platelets are improving with IVIG which is again consistent with ITP. Plan: -Considering that her platelets are at 30 K and other second line agents cannot be given at this time as IP, we discussed about IVIG for 400 mg/kg x 1 more dose here followed by another trial of prednisone 50 mg (~1mg/kg) x 5 days along with PPI -I will arrange for romiplostim 1 MCG/ kg dose next week at [facility]. Repeat CBC on 08/04. Patient aware of red flags to return to ER. Okay to discharge from our standpoint. She will follow-up with me next week at [facility] Time Spent: Approximately 30 minutes was spent in direct patient consultation and the majority of that time (>50%) was spent on counseling and coordination of care. D/w primary team, staff at [facility],pharmacy, Providers PRIMARY MEDICAL ONCOLOGIST: No care staff nurse icu resource team to display PRIMARY CARE PROVIDER: ALEJANDRO BOSS MD DENTIAL COLLECTIONS documented in this encounter H&P Notes * Sherice Duarte MD - 07/30/2020 4:52 PM CST Images from the original note were not included. [place] Hospitalist History & Physical Attending Provider: Ania Be NP PCP: ALEJANDRO BOSS MD Hillary Estrellita Do is an 30-year-old female. IMPRESSION: Thrombocytopenia-acute on chronic PLAN: Patient with known history of thrombocytopenia with platelet count of 16 today. Is scheduled to get IVIG 1 g/kg per customer retention representative Dr. Mcclellan on his recommendation. COVID-19 was negative. Due to receive later transfusion after IVIG is completed per heme recommendation Further work-up per hematology Hemoglobin is otherwise unremarkable at 12.4. No evidence of bleeding Repeat CBC in the morning No DVT prophylaxis due to severe thrombocytopenia Regular diet Full code Plan discussed with the patient in great detail. All questions answered. She verbalized understanding and is in agreement with the plan. Chief Complaint: Patient asked to come in to the hospital for IVIG for thrombocytopenia HPI: Patient is a 30-year-old female with possible history of chronic, cytopenia without to come to the ED by her customer retention representative Dr. Harp for IVIG and thrombocytopenia. Patient says that she was initially diagnosed with thrombocytopenia 8 years ago however she has notfollowed up with anybody since then. Recently about 3 months ago she had delivered twins and it wascomplicated by placental abruption requiring vent support, ICU stay, platelet transfusion, PRBC transfusion and iron transfusion in [place]. She was eventually discharged in April 2020. She has been doing okay and states she is trying to take care of herself since then. She has been following up with customer retention representative for past 6 months with frequent CBC checks. Yesterday her platelet count was lowand received 1 unit of platelet transfusion. Today again it was noted to be low at 15 and was as tocome to the hospital for IVIG and platelet transfusion and further work-up. She otherwise is asymptomatic. Denies any nausea vomiting fevers chills abdominal pain, new rash, confusion, diarrhea, constipation. States at the present time she is in her menstrual cycle but has not noted any worsening bleeding. She tells me that she has never been officially diagnosed with ITP, although she was told that her platelet count was always low. Denies any recent travels or any Covid symptoms. Allergies Allergen Reactions ??? Bee Venom Anaphylaxis ??? Shellfish Allergy Anaphylaxis Current Facility-Administered Medications on File Prior to Encounter Medication ??? sodium chloride 0.9% infusion Current Outpatient Medications on File Prior to Encounter Medication Sig ??? naproxen sodium 220 MG tablet Take 440 mg by mouth 2 (two) times daily with meals. ??? Sofosbuvir-Velpatasvir 400-100 MG Tab Take 1 tablet by mouth daily. ROS 14 point review of systems negative except as mentioned above Past Medical History: Diagnosis Date ??? Acute ITP (CMS/HCC) ??? Anemia ??? History of blood transfusion History reviewed. No pertinent surgical history. Social History Tobacco Use ??? Smoking status: Former Smoker ??? Smokeless tobacco: Current User Substance Use Topics ??? Alcohol use: Not on file No family history on file. Filed Vitals: 07/30/20 1323 BP: 118/75 Pulse: 92 Resp: 14 Temp: 97.6 ??F (36.4 ??C) TempSrc: Oral SpO2: 99% Weight: 60.8 kg (134 lb 0.6 oz) Height: 5' 3 (1.6 m) Physical Exam Constitutional: She is oriented to person, place, and time and well-developed, well-nourished, and in no distress. HENT: Head: Normocephalic and atraumatic. Eyes: Pupils are equal, round, and reactive to light. EOM are normal. Neck: Normal range of motion. Neck supple. Cardiovascular: Normal rate and regular rhythm. Pulmonary/Chest: Effort normal and breath sounds normal. Abdominal: Soft. Bowel sounds are normal. Musculoskeletal: Normal range of motion. Neurological: She is alert and oriented to person, place, and time. Recent Labs Lab 07/30/20 1449 NA 138 K 4.0 CL 106 CO2 27.6 AGAP 4.4* BUN 10 CR 0.69 GFRNON >90 GFR >90 GLU 81 CA 8.7 Recent Labs Lab 07/30/20 0940 07/30/20 1449 WBC 5.2 4.7 RBC 4.67 4.42 HGB 13.0 12.4 HCT 41.9 40.5 MCV 89.7 91.6 MCH 27.8 28.1 MCHC 31.0* 30.6* PLT 15* 16* RDW 14.0 13.7 MPV RESULTS NOT AVAILABLE UNABLE TO PERFORM TEST NEUC 3.91 -- [facility] 0.33* 0.63* MONOC 0.24 0.25 EOSC 0.64* 0.74* BASOC 0.07 0.07 No results for input(s): INR in the last 168 hours. Microbiology Results (last 14 days) Procedure Component Value Units Date/Time BIOFIRE PCR UPPER RESPIRATORY PROFILE (RESPIRATORY PCR PANEL 2) [[id number]] Collected: 07/30/20 1525 Order Status: Completed Lab Status: Final result Updated: 07/30/20 1631 Specimen: NASOPHARYNGEAL SWAB Adenovirus PCR: NOT DETECTED Coronavirus 229E PCR: NOT DETECTED Coronavirus HKU1 PCR: NOT DETECTED Coronavirus NL63 PCR: NOT DETECTED Coronavirus OC43 PCR: NOT DETECTED Metapneumovirus PCR: NOT DETECTED Rhinovirus/Enterovirus PCR: NOT DETECTED Influenza A PCR: NOT DETECTED Influenza B PCR: NOT DETECTED Parainfluenza 1 PCR: NOT DETECTED Parainfluenza 2 PCR: NOT DETECTED Parainfluenza 3 PCR: NOT DETECTED Parainfluenza 4 PCR: NOT DETECTED RSV PCR: NOT DETECTED B PARAPERTUSIS PCR NOT DETECTED Bordtella Pertussis PCR: NOT DETECTED CHLAMYDOPHILA PNEUMONIAE PCR NOT DETECTED Mycoplasma Pneumoniae PCR: NOT DETECTED Coronavirus SARS CoV 2 PCR NOT DETECTED Comment: THE SARS-CoV-2 TEST HAS BEEN AUTHORIZED BY THE FDA UNDER AN EUA FOR USE BY AUTHORIZED LABORATORIES. Physical Exam Constitutional: She is oriented to person, place, and time and well-developed, well-nourished, and in no distress. HENT: Head: Normocephalic and atraumatic. Eyes: Pupils are equal, round, and reactive to light. EOM are normal. Neck: Normal range of motion. Neck supple. Cardiovascular: Normal rate and regular rhythm. Pulmonary/Chest: Effort normal and breath sounds normal. Abdominal: Soft. Bowel sounds are normal. Musculoskeletal: Normal range of motion. Neurological: She is alert and oriented to person, place, and time. Sherice Duarte MD 07/30/2020 DENTIAL COLLECTIONS documented in this encounter Consult Notes * Roberta Hinkle MD - 07/30/2020 5:38 PM CST Hematology/Oncology Consult Note Identifying Data Hillary Do is a 30-year-old female. REQUESTING PHYSICIAN: Dr Ania Be MD REASON FOR CONSULT: severe Thrombocytopenia Subjective History of Present Illness: 30-year-old female with history of hepatitis C viral infection [currently on direct antiviral agents], history of chronic ITP, iron deficiency anemia, B12 deficiency anemia, positive antiphospholipidpanel who was directed to the ER due to low platelet count of 15 K. Patient has history of chronic ITP, she followed with me during her when her platelet count ranges were around 50 K. During her delivery, she had developed PPH requiring IVIG, Solu- Medrol 1 g/kg with good improvement in platelet counts which points this towards immune mediated thrombocytopenia. Since 07/09 she slowly had decline in her platelet counts to <30 K with no bleeding. Trial of dexamethasone 40 mg x 4 days around 07/16 did not show any improvement of platelet counts. On 07/28 her platelet countswere around 20 K with mild spotting and onset of her menstrual cycles with no heavy bleeding. No other mucosal bleeding or hematuria or melena noted. Overall plan was to give IVIG and platelet transfusion as an outpatient to see if that improves her platelet count which will point towards ITP. However due to insurance issues unable to give it as an outpatient in a timely manner and hence the admission. Review of Systems: A 10-point review of systems was assessed; all systems were negative except per Interval History. ROS Pertinent History: Past Medical History: Diagnosis Date ??? Acute ITP (CMS/HCC) ??? Anemia ??? History of blood transfusion Pertinent family history is not on file. Social History Socioeconomic History ??? Marital status: [...] file Gets together: Not on file Attends tenriism service: Not on file Active member of [...] surgical history. Current Outpatient Medications Medication Sig ??? naproxen sodium 220 MG tablet Take 440 mg by mouth 2 (two) times daily with meals. ??? Sofosbuvir-Velpatasvir 400-100 MG Tab Take 1 tablet by mouth daily. Allergies Allergen Reactions ??? Bee Venom Anaphylaxis ??? Shellfish Allergy Anaphylaxis Objective Vitals Height: 5' 3 (1.6 m) , Weight: 60.8 kg (134 lb 0.6 oz) , BSA (Calculated - sq m): 1.64 sq meters , BP: 107/78 , Temp: 97.6 ??F (36.4 ??C) , Pulse: 71 , Resp: 24 Physical Exam General: The patient appears comfortable and in no acute distress. Eyes: Conjunctiva and lids are without erythema or discharge. There is no scleral icterus. ENMT: The oropharynx is clear and without lesions.. Neck: No JVD noted. Lymphatic: There is no cervical, supraclavicular, axillary, or inguinal adenopathy. Cardiovascular: The heart is regular rate and rhythm. Normal S1 and S2 are present. There are no murmurs, rubs, or gallops present. There is no lower extremity edema present bilaterally. Respiratory: The lungs are clear to auscultation bilaterally. No wheezes, rales or rhonchi. Abdomen: There is no hepatosplenomegaly. Normal active bowel sounds are present. There is no abdominal tenderness or distention. There are no palpable masses present. Skin: There are no abnormal skin rashes, lesions or masses to inspection Neurologic: Grossly non-focal. Musculoskeletal: Gait is normal. No tenderness is noted. Psychiatric: The patient is alert and oriented times 3. The patient's affect is not blunted and mood is appropriate. Physical Exam Laboratory CBC: ABS. NEUTROPHILS Date Value Ref [...] WERE READ BACK BY ROSE JENKINS @ [id number] 07/30/2020 BY TYRELL LARGE PLATELETS PRESENT CMP: CREATININE S/P/B Date Value Ref Range Status 07/30/2020 0.69 0.55 - 1.02 MG/DL Final BILIRUBIN TOTAL S/P/B Date Value Ref Range Status 07/08/2020 0.3 0.2 - 1.0 MG/DL Final Comment: THIS ASSAY IS NOT RECOMMENDED FOR PATIENTS UNDERGOING TREATMENT WITH ELTROMBOPAG DUE TO THE POTENTIAL FOR FALSELY ELEVATED RESULTS. Assessment Assessment and Plan 1.?? Acute on chronic thrombocytopenia: secondary to HCV infection and immune mediated, less likelydrug related. No improvement with dexamethasone 40 mg once daily x 4 days (07/16-07/20). Repeat CBCwith further decline to 20K-->15K (07/30) 2. History of iron deficiency, B12 deficiency, folic acid deficiency. Hgb improved with oral supplements. Monitor 3. Chronic HCV infection: Currently on HCV antiviral treatment and follows with [facility] hepatology team. 4. Polysubstance abuse:. Patient has quit using recreational drugs. Commended on efforts 5. 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 Hold ASA due to thrombocytopenia Recs: -Check for COVID-19 infection-negative - IVIG 1 g/kg followed by platelet transfusion NANCY. If platelets improve then it points towards ITP - Platelet transfusion if any bleeding to keep plt counts >20K. Will check PT/PTT/Fibrinogen. - If refractory to steroids and IVIG, it will be challenging, given her Hep C rx (though rituximab is not absolute Contraindication, it comes with SE) and hx of non compliance (oral TPO-Abs will be an issue), hx of polysubstance abuse ( splenectomy is not a good choice due to high risk of infections) ?? We will continue to follow IP. Time Spent: Approximately 45 minutes was spent in direct patient consultation and the majority of that time (>50%) was spent on counseling and coordination of care. Discussed plan with staff, ER physician at [facility]. Again discussed plan with ER physician at [facility]. Providers PRIMARY CARE PROVIDER: MD Roberta VILLALOBOS MD DENTIAL COLLECTIONS DENTIAL COLLECTIONS documented in this encounter ED Notes * Ania Be NP - 07/30/2020 2:21 PM CST ED NOTE Chief Complaint Chief Complaint Patient presents with ??? Low Blood Count History of Present Illness History provided by: Patient Hillary Do, a 30-year-old female, presents to ED with complaints of low platelet count. Patient reports she has a history of low platelet counts relating this to ITP but also stating her doctor is not for sure if this is what she has. Patient states she did receive a transfusion of platelets yesterday but was called today and told that her platelet count was 15,000 and needed to be a dmitted to the hospital. Patient denies any fever, chills, bruising, nausea or vomiting and any or all other symptoms. She denies other significant past medical history. Medical History ALLERGIES: Allergies Allergen Reactions ??? Bee Venom Anaphylaxis ??? Shellfish Allergy Anaphylaxis MEDICATIONS: Prior to Admission medications Medication Sig Start Date End Date Taking? Authorizing Provider naproxen sodium 220 MG tablet Take 440 mg by mouth 2 (two) times daily with meals. Doc Abstract Sofosbuvir-Velpatasvir 400-100 MG Tab Take 1 tablet by mouth daily. 06/17/20 Doc Abstract PAST MEDICAL HISTORY: Past Medical History: Diagnosis Date ??? Acute ITP (CMS/HCC) ??? Anemia ??? History of blood transfusion PAST SURGICAL HISTORY: History reviewed. No pertinent surgical history. FAMILY HISTORY: No family history on file. SOCIAL HISTORY: Social History Tobacco Use ??? Smoking status: Former Smoker ??? Smokeless tobacco: Current User Substance Use Topics ??? Alcohol use: Not on file ??? Drug use: Not on file Review of Systems Review of Systems Constitutional: Negative. Negative for chills and fever. HENT: Negative. Eyes: Negative. Respiratory: Negative. Negative for cough and shortness of breath. Cardiovascular: Negative. Negative for chest pain. Gastrointestinal: Negative. Negative for abdominal pain, nausea and vomiting. Genitourinary: Negative. Negative for hematuria. Musculoskeletal: Negative. Negative for arthralgias and myalgias. Skin: Negative for rash. Neurological: Negative. Negative for dizziness, light-headedness and headaches. Hematological: Bruises/bleeds easily. Psychiatric/Behavioral: Negative. Physical Exam Filed Vitals: 07/30/20 1323 BP: 118/75 Pulse: 92 Resp: 14 Temp: 97.6 ??F (36.4 ??C) TempSrc: Oral SpO2: 99% Weight: 60.8 kg (134 lb 0.6 oz) Height: 5' 3 (1.6 m) Physical Exam Vitals signs and nursing note reviewed. Constitutional: General: She is not in acute distress. Appearance: Normal appearance. She is well-developed. She is not ill-appearing. HENT: Head: Normocephalic and atraumatic. Nose: Nose normal. Mouth/Throat: Pharynx: Uvula midline. Neck: Musculoskeletal: Normal range of motion and neck supple. Cardiovascular: Rate and Rhythm: Normal rate and regular rhythm. Heart sounds: Normal heart sounds, S1 normal and S2 normal. Pulmonary: Effort: Pulmonary effort is normal. No respiratory distress. Breath sounds: Normal breath sounds. Skin: General: Skin is warm and dry. Coloration: Skin is not pale. Findings: No rash. Neurological: Mental Status: She is alert and oriented to person, place, and time. Psychiatric: Speech: Speech normal. Behavior: Behavior normal. Diagnostic Studies / Procedures ELECTROCARDIOGRAMS: No results found for this visit on 07/30/20. LABORATORY STUDIES: Results for orders placed or performed during the hospital encounter of 07/30/20 CBC W/DIFF AUTOMATED Result Value Ref Range WBC 4.7 4.0 - 10.8 x10'3/uL RBC 4.42 4.10 - 5.40 x10'6/uL HGB 12.4 12.0 - 16.0 G/DL HCT 40.5 36.0 - 47.0 % MCV 91.6 78.0 - 100.0 FL MCH 28.1 27.0 - 31.0 PG MCHC 30.6 (L) 33.0 - 36.0 G/DL RDW 13.7 11.5 - 14.5 % PLT 16 (LL) 150 - 350 x10'3/uL MPV UNABLE TO PERFORM TEST 7.4 - 10.4 FL ABS. NEUTROPHILS TOTAL 3.00 1.60 - 8.30 x10'3/uL ABS. LYMPHOCYTES 0.63 (L) 0.80 - 4.70 x10'3/uL ABS. MONOCYTES 0.25 0.00 - 1.50 x10'3/uL ABS. EOSINOPHILS 0.74 (H) 0.00 - 0.40 x10'3/uL ABS. BASOPHILS 0.07 0.00 - 0.20 x10'3/uL ABS. IMMATURE GRANULOCYTES 0.01 0.00 - 0.03 x10'3/uL ABS. NUCLEATED RBC'S 0.00 0.0 x10'3/uL BASIC METABOLIC PANEL Result Value Ref Range SODIUM 138 136 - 145 MMOL/L POTASSIUM 4.0 3.5 - 5.1 MMOL/L CHLORIDE S/P/B 106 98 - 107 MMOL/L CO2 27.6 21.0 - 32.0 MMOL/L GLUCOSE 81 74 - 106 MG/DL BUN 10 7 - 18 MG/DL CREATININE S/P/B 0.69 0.55 - 1.02 MG/DL CALCIUM 8.7 8.5 - 10.1 MG/DL ANION GAP 4.4 (L) 5.0 - 15.0 MMOL/L OSMOLALITY (CALC) 284 MOSM/KG eGFR Non-Afr. Amer. >90 >90 ML/MIN/1.73 M2 eGFR Afr. Amer. >90 >90 ML/MIN/1.73 M2 GFR NOTES GFR REFERENCES: TYPE AND SCREEN Result Value Ref Range ABO/RH A POSITIVE ANTIBODY SCREEN NEGATIVE SAMPLE EXPIRATION: 08/02/2020,2359 ORDER PLATELET PHERESIS, 1 Units Result Value Ref Range UNITS ORDERED 1 IMAGING STUDIES No orders to display ED Course / Medical Decision Making MDM Number of Diagnoses or Management Options Thrombocytopenia (CMS/HCC): new, needed workup Amount and/or Complexity of Data Reviewed Clinical lab tests: ordered and reviewed Review and summarize past medical records: yes Discuss the patient with other providers: yes (Dr. Hinkle customer retention representative Dr. Mauricio hospitalist) Patient Progress Patient progress: stable ED Course as of Jul 30 1624TueJul 30, 2020 1425 Patient is a 30-year-old female that presents to the emergency department with complaints of alow platelet count with referral here from her customer retention representative, Dr. Hinkle, to be admitted to the hospital for IVIG infusion. She states that she received a platelet transfusion yesterday however her platelets remain at 15. She denies any and all complaints at present. Will notify Dr. Hinkle for further admission orders. [TU] [address] Hinkle, who recommends admission to hospitalist for IV IG infusion followed by platelet transfusion. Will contact hospitalist. [TU] 1546 Dr. Mauricio hospitalist notified regarding all results and findings and is agreeable with admission. Patient updated and aware of POC. [TU] ED Course User Index [TU] Ania Be NP Medications acetaminophen (TYLENOL) tablet 650 mg (has no administration in time range) immune globulin (Human) (GAMMAGARD, GAMUNEX-C) infusion 60 g (has no administration in time range) sodium chloride 0.9% infusion (has no administration in time range) Clinical Impression Thrombocytopenia (CMS/HCC) (Primary) Disposition: Admit Current Discharge Medication List Follow-up: No follow-up provider specified. 07/30/2020 Ania Be NP 07/30/20 1625 Cosigned by Maureen Ace MD at 07/31/2020 5:16 PM RESIDENTIAL COLLECTIONS DENTIAL COLLECTIONS DENTIAL COLLECTIONS * Monica Vences RN - 07/30/2020 1:18 PM CST Pt arrives per POV with c/o low platelet count. Pt states that she was sent here due to her needingto be admitted. DENTIAL COLLECTIONS documented in this encounter Plan of Treatment Upcoming Encounters Date Type Department Care Team (Late st Contact Info) Description 09/25/2024 11:30 AM RESIDENTIAL COLLECTIONS Appointment [facility] [address] [place] [address] Roberta Hinkle MD [address] [place], [place] [id number] 09/25/2024 11:40 AM RESIDENTIAL COLLECTIONS Office Visit [facility] [place] [address] Roberta Hinkle MD [address] [place], [place] [id number] documented as of this encounter Procedures Procedure Name Priority Date/Time Associated Diagnosis Comments PARTIAL THROMBOPLASTIN TIME,PTT Routine 07/31/2020 4:55 AM RESIDENTIAL COLLECTIONS PROTHROMBIN TIME, VENOUS Routine 07/31/2020 4:55 AM RESIDENTIAL COLLECTIONS BASIC METABOLIC PANEL Routine 07/31/2020 4:55 AM RESIDENTIAL COLLECTIONS CBC W/DIFF AUTOMATED Routine 07/31/2020 4:55 AM RESIDENTIAL COLLECTIONS CULTURE, ROUTINE W/ GRAM STAIN Routine 07/31/2020 4:00 AM RESIDENTIAL COLLECTIONS TRANSFUSION REACTION EVALUATION STAT 07/31/2020 1:29 AM RESIDENTIAL COLLECTIONS URINALYSIS TRANSFUSION REACTION STAT 07/31/2020 1:28 AM RESIDENTIAL COLLECTIONS TRANSFUSION REACT INTERPRETATION Routine 07/31/2020 12:55 AM RESIDENTIAL COLLECTIONS TRANSFUSE PLATELET PHERESIS Routine 07/30/2020 11:40 PM RESIDENTIAL COLLECTIONS FLOW CYTOMETRY, PERIPHERAL BLD STAT 07/30/2020 6:27 PM RESIDENTIAL COLLECTIONS PARTIAL THROMBOPLASTIN TIME,PTT STAT 07/30/2020 6:27 PM RESIDENTIAL COLLECTIONS PROTHROMBIN TIME, VENOUS STAT 07/30/2020 6:27 PM RESIDENTIAL COLLECTIONS FIBRINOGEN STAT 07/30/2020 6:27 PM RESIDENTIAL COLLECTIONS ORDER PLATELET PHERESIS Routine 07/30/2020 3:46 PM RESIDENTIAL COLLECTIONS RESPIRATORY PCR PANEL 2 Nurse Collected Priority 07/30/2020 3:25 PM RESIDENTIAL COLLECTIONS TYPE & SCREEN STAT 07/30/2020 2:49 PM RESIDENTIAL COLLECTIONS BASIC METABOLIC PANEL STAT 07/30/2020 2:49 PM RESIDENTIAL COLLECTIONS CBC W/DIFF AUTOMATED STAT 07/30/2020 2:49 PM RESIDENTIAL COLLECTIONS FLOW CYTOMETRY Routine 07/30/2020 12:00 AM RESIDENTIAL COLLECTIONS PATHOLOGY Routine 07/30/2020 12:00 AM RESIDENTIAL COLLECTIONS documented in this encounter Results * (ABNORMAL) BASIC METABOLIC PANEL (07/31/2020 4:55 AM RESIDENTIAL COLLECTIONS) SODIUM S/P/B 136 136 - 145 MMOL/L 07/31/2020 5:40 AM RESIDENTIAL COLLECTIONS [facility] POTASSIUM S/P/B 4.1 3.5 - 5.1 MMOL/L 07/31/2020 5:40 AM RESIDENTIAL COLLECTIONS [facility] CHLORIDE S/P/B 106 98 - 107 MMOL/L 07/31/2020 5:40 AM RESIDENTIAL COLLECTIONS [facility] CO2 24.5 21.0 - 32.0 MMOL/L 07/31/2020 5:40 AM RESIDENTIAL COLLECTIONS [facility] GLUCOSE 101 74 - 106 MG/DL 07/31/2020 5:40 AM RESIDENTIAL COLLECTIONS [facility] BUN 21(H) 7 - 18 MG/DL 07/31/2020 5:58 AM RESIDENTIAL COLLECTIONS [facility] CREATININE S/P/B 0.76 0.55 - 1.02 MG/DL 07/31/2020 5:40 AM [facility] CALCIUM S/P/B 8.4(L) 8.5 - 10.1 MG/DL 07/31/2020 5:40 AM [facility] ANION GAP 5.5 5.0 - 15.0 MMOL/L 07/31/2020 5:40 AM RESIDENTIAL COLLECTIONS [facility] Comment:REFERENCE RANGE NOT ESTABLISHED OSMOLALITY (CALC) 285 MOSM/KG 021 5:58 AM RESIDENTIAL COLLECTIONS [facility] Comment:REFERENCE RANGE NOT ESTABLISHED EGFR NON-AFR. AMER. >90 >90 ML/MIN/1. 73 M2 07/31/2020 5:40 AM RESIDENTIAL COLLECTIONS [facility] EGFR AFR. AMER. >90 >90 ML/MIN/1. 73 M2 07/31/2020 5:40 AM [facility] GFR NOTES GFR REFERENCE S: 07/31/2020 5:40 AM [facility] Comment: THE ESTIMATED GFR IS CALCULATED USING THE 2009 CKD-EPI EQUATION. THE FOLLOWING CATEGORIES FOR GRADING RENAL FUNCTION ARE RECOMMENDED BY THE INTERNATIONAL SOCIETY OF NEPHROLOGY (KDIGO 2012 CLINICAL PRACTICE GUIDELINE). G1,NORMAL OR HIGH: >89 ml/min/1.73 m2 G2,MILDLY DECREASED: 60-89 ml/min/1.73 m2 G3A,MILDLY TO MODERATELY DECREASED: 45-59 ml/min/1.73 m2 G3B,MODERATELY TO SEVERELY DECREASED: 30-44 ml/min/1.73 m2 G4,SEVERELY DECREASED: 15-29 ml/min/1.73 m2 G5,KIDNEY FAILURE: <15 ml/min/1.73 m2 07/31/2020 4:55 AM RESIDENTIAL COLLECTIONS us Sherice Duarte MD LABORATORY Final Result [facility] [address] [place] [address], [id number] * PARTIAL THROMBOPLASTIN TIME,PTT (07/31/2020 4:55 AM RESIDENTIAL COLLECTIONS) PTT 32.6 25.1 - 36.5 SEC 07/31/2020 5:33 AM RESIDENTIAL COLLECTIONS [facility] 07/31/2020 4:55 AM RESIDENTIAL COLLECTIONS us Sherice Duarte MD LABORATORY Final Result Performing Organization Address [facility] Co de Phone Number [facility] [address] [place] [address], [id number] * PROTHROMBIN TIME, VENOUS (07/31/2020 4:55 AM RESIDENTIAL COLLECTIONS) PROTIME 12.3 10.2 - 12.9 SEC 07/31/2020 5:31 AM RESIDENTIAL COLLECTIONS [facility] INR 1.1 0.9 - 1.1 07/31/2020 5:31 AM RESIDENTIAL COLLECTIONS [facility] 07/31/2020 4:55 AM RESIDENTIAL COLLECTIONS us Sherice Duarte MD LABORATORY Final Result Performing Organization Address [facility] Co de Phone Number [facility] [address] [place] [address], [id number] * (ABNORMAL) CBC W/DIFF AUTOMATED (07/31/2020 4:55 AM RESIDENTIAL COLLECTIONS) WBC 6.8 4.0 - 10.8 x10'3/uL 07/31/2020 5:41 AM RESIDENTIAL COLLECTIONS [facility] RBC 4.00(L) 4.10 - 5.40 x10'6/uL 07/31/2020 5:41 AM RESIDENTIAL COLLECTIONS [facility] HGB 11.3(L) 12.0 - 16.0 G/DL 07/31/2020 5:41 AM [facility] HCT 36.2 36.0 - 47.0 % 07/31/2020 5:41 AM [facility] MCV 90.5 78.0 - 100.0 FL 07/31/2020 5:41 AM [facility] MCH 28.3 27.0 - 31.0 PG 07/31/2020 5:41 AM [facility] MCHC 31.2(L) 33.0 - 36.0 G/DL 07/31/2020 5:41 AM [facility] RDW 13.6 11.5 - 14.5 % 07/31/2020 5:41 AM [facility] PLT 30(L) 150 - 350 x10'3/uL 07/31/2020 6:12 AM [facility] MPV UNABLE TO PERFORM TEST 7.4 - 10.4 FL 07/31/2020 6:12 AM [facility] ABS. NEUTROPHILS TOTAL 5.53 1.60 - 8.30 x10'3/uL 07/31/2020 5:41 AM [facility] ABS. LYMPHOCYTES 0.56(L) 0.80 - 4.70 x10'3/uL 07/31/2020 5:41 AM [facility] ABS. MONOCYTES 0.28 0.00 - 1.50 x10'3/uL 07/31/2020 5:41 AM [facility] ABS. EOSINOPHILS 0.34 0.00 - 0.40 x10'3/uL 07/31/2020 5:41 AM [facility] ABS. BASOPHILS 0.06 0.00 - 0.20 x10'3/uL 07/31/2020 5:41 AM [facility] ABS. IMMATURE GRANULOCYTES 0.03 0.00 - 0.03 x10'3/uL 07/31/2020 5:41 AM [facility] ABS. NUCLEATED RBC'S 0.00 0.0 x10'3/uL 07/31/2020 5:41 AM RESIDENTIAL COLLECTIONS [facility] 07/31/2020 4:55 AM RESIDENTIAL COLLECTIONS us Sherice Duarte MD LABORATORY Final Result Performing Organization Address [facility] de Phone Number [facility] [address] [place] [address], [id number] * CULTURE, ROUTINE W/ GRAM STAIN (07/31/2020 4:00 AM RESIDENTIAL COLLECTIONS) SPEC DESCRIPTION BLOOD: [id number] 07/31/2020 5:04 AM RESIDENTIAL COLLECTIONS [facility] SPECIAL REQUESTS POSSIBLE TRANSFUSION REACTION 07/31/2020 5:04 AM RESIDENTIAL COLLECTIONS [facility] GRAM STAIN RESULT NO ORGANISMS SEEN 07/31/2020 7:29 AM RESIDENTIAL COLLECTIONS [facility] CULTURE RESULT NO GROWTH 5 DAYS 08/05/2020 9:32 AM RESIDENTIAL COLLECTIONS [facility] BLOOD SPECIMEN OBTAINED FOR BLOOD CULTURE / Unknown 07/31/2020 4:00 AM RESIDENTIAL COLLECTIONS 07/31/2020 5:03 AM RESIDENTIAL COLLECTIONS Comment:[id number] us Kamron Chacon MD MICROBIOLOGY - GENERAL ORDER CURZITO Final Result Performing Organization Address [facility] de Phone Number [facility] [address] [place] [address], [id number] * Transfusion reaction evaluation (07/31/2020 1:29 AM RESIDENTIAL COLLECTIONS) CLERICAL CHECK REVIEW OF PAPERWORK, PATIENT TESTING, DONOR LABEL AND TRANSFUSION FORM SHOWS NO DISCREPANCIES. 07/31/2020 3:21 AM RESIDENTIAL COLLECTIONS [facility] VISUAL CHECK PRE NO VISIBLE HEMOLYSIS NO VISIBLE ICTERUS 07/31/2020 3:21 AM RESIDENTIAL COLLECTIONS [facility] VISUAL CHECK POST NO VISIBLE HEMOLYSIS NO VISIBLE ICTERUS 07/31/2020 3:21 AM RESIDENTIAL COLLECTIONS [facility] ABO/RH A POSITIVE 07/31/2020 3:21 AM RESIDENTIAL COLLECTIONS [facility] TRANSFUSION REACTION INTERP OK TO TRANSFUSE PATIENT 07/31/2020 4:00 AM RESIDENTIAL COLLECTIONS [facility] ANTIBODY ELUTION The non-reactive eluate suggests that the positive Direct Antiglobulin Test and/or auto control is due to a medication-mike kait antibody, rather than an auto or allo antibody. 07/31/2020 3:43 AM RESIDENTIAL COLLECTIONS [facility] APPEARANCE (U) APPEARANCE OF BLOOD, FILTER SET AND SOLUTIONS IS NORMAL 07/31/2020 3:21 AM RESIDENTIAL COLLECTIONS [facility] POST LANDY C3 LISET NEGATIVE 07/31/2020 3:21 AM RESIDENTIAL COLLECTIONS [facility] POST LANDY IGG LISET POSITIVE CRITICAL RESULT, SPECIMEN DATE, TIME WERE READ BACK BY HOS[facility] [place] [id number] KARLEY 07/31/2020 3:43 AM RESIDENTIAL COLLECTIONS [facility] PRE LANDY C3 LISET NEGATIVE 07/31/2020 3:21 AM RESIDENTIAL COLLECTIONS [facility] PRE LANDY IGG LISET NEGATIVE 07/31/2020 3:21 AM RESIDENTIAL COLLECTIONS [facility] PRODUCT: PLATELETS 07/31/2020 3:21 AM RESIDENTIAL COLLECTIONS [facility] CLINICAL SIGNS/SYMPTOMS CHILLS BACK PAIN, DIAPHORESIS 07/31/2020 3:21 AM RESIDENTIAL COLLECTIONS [facility] TRXN GR STAIN/CULT UNIT GRAM STAIN AND CULTURE ORDERED, SEE SEPARATE MICROBIOLOGY REPORT FOR RESULTS. 07/31/2020 4:04 AM RESIDENTIAL COLLECTIONS [facility] 07/31/2020 1:29 AM RESIDENTIAL COLLECTIONS us Sherice Duarte MD BLOOD BANK TEST ORDERABLES F inal Result [facility] [address] [place] [address], [phone] * URINALYSIS TRANSFUSION REACTION (07/31/2020 1:28 AM RESIDENTIAL COLLECTIONS) COLOR (U) LIGHT YELLOW 07/31/2020 3:12 AM RESIDENTIAL COLLECTIONS [facility] TRANSPARENCY CLEAR 07/31/2020 3:12 AM RESIDENTIAL COLLECTIONS [facility] BLOOD (U) NEGATIVE 07/31/2020 3:12 AM RESIDENTIAL COLLECTIONS [facility] RBC/HPF 2 0 - 3 /HPF 07/31/2020 3:12 AM RESIDENTIAL COLLECTIONS [facility] 07/31/2020 1:28 AM RESIDENTIAL COLLECTIONS us Sherice Duarte MD URINE ORDERABLES Final Resul t [facility] [address] [place] [address], [id number] * TRANSFUSION REACT INTERPRETATION (07/31/2020 12:55 AM RESIDENTIAL COLLECTIONS) PATHOLOGIST COMMENT FNHTR can also be defined as the onset of chills/ rigors in the absence of fever within 4 hours, with no other cause identified. Additional signs and symptoms include increased respiratory rate, change in blood pressure, anxiety, headache, nausea and vomiting. This type of reaction is due to an increase in the levels of pyrogenic cytokines such as TNFa, IL-1 or IL-6. 08/08/2020 4:25 AM RESIDENTIAL COLLECTIONS [facility] Comment: These cytokines may emerge post transfusion due to recipient antibodies targeted against transfused donor WBCs contaminating RBC units or platelet units. This can be managed by: 1) stopping the transfusion and 2) treating with Tylenol. ??Use or continue to use pre-storage leukocyte reduced RBCs and platelets to help reduce occurrence of these reactions. For further information or a consultation contact the transfusion service physician. THE PATIENT HAS IMMUNE MEDIATED THROMBOCYTOPENIA AND DURING A PLATELETPHERESIS TRANSFUSION HAD SUDDEN ONSET OF CHILLS WITH BACKACHE AND DIAPHORESIS. FEBRILE NON HEMOLYTIC TRANSFUSION REACTION (CYTOKINE). 07/31/2020 12:5 5 AM RESIDENTIAL COLLECTIONS us Kamron Chacon MD BLOOD BANK TEST ORDERABLES F inal Result Performing Organization Address City/[facility]/ZIP Co de Phone Number [facility] [address] [place] [address], [phone] * TRANSFUSE PLATELET PHERESIS (07/31/2020 12:50 AM RESIDENTIAL COLLECTIONS) Ania Be CUSTODIAL MAINTENANCE WORKER NURSING TREATMENT ORDERABLES - BLOOD ADMIN Final Result * TRANSFUSE PLATELET PHERESIS, 1 Units (07/31/2020 12:50 AM RESIDENTIAL COLLECTIONS) Ania Perez Haile CUSTODIAL MAINTENANCE WORKER NURSING TREATMENT ORDERABLES - BLOOD ADMIN Final Result * FLOW CYTOMETRY, PERIPHERAL BLD (07/30/2020 6:27 PM RESIDENTIAL COLLECTIONS) FLOW CYTOMETRY RESULTS IN COPATH 07/31/2020 6:50 PM RESIDENTIAL COLLECTIONS [facility] 07/30/2020 6:27 PM RESIDENTIAL COLLECTIONS Roberta Hinkle MD LABORATORY Final Result Performing Organization Address [facility] Co de Phone Number [facility] [address] [place] [address], [phone] * (ABNORMAL) FIBRINOGEN (07/30/2020 6:27 PM RESIDENTIAL COLLECTIONS) Pathologist [facility] FIBRINOGEN 197(L) 200 - 393 MG/DL 07/30/2020 7:03 PM RESIDENTIAL COLLECTIONS [facility] 07/30/2020 6:27 PM RESIDENTIAL COLLECTIONS Roberta Hinkle MD LABORATORY Final Result Performing Organization Address [facility] Co de Phone Number [facility] [address] [place] [address], [id number] * (ABNORMAL) PARTIAL THROMBOPLASTIN TIME,PTT (07/30/2020 6:27 PM RESIDENTIAL COLLECTIONS) PTT 24.0(L) 25.1 - 36.5 SEC 07/30/2020 7:05 PM RESIDENTIAL COLLECTIONS [facility] 07/30/2020 6:27 PM RESIDENTIAL COLLECTIONS Roberta Hinkle MD LABORATORY Final Result Performing Organization Address [facility] de Phone Number [facility] [address] [place] [address], [id number] * PROTIME/INR, VENOUS (07/30/2020 6:27 PM RESIDENTIAL COLLECTIONS) PROTIME 10.9 10.2 - 12.9 SEC 07/30/2020 7:03 PM RESIDENTIAL COLLECTIONS [facility] INR 1.0 0.9 - 1.1 07/30/2020 7:03 PM RESIDENTIAL COLLECTIONS [facility] 07/30/2020 6:27 PM RESIDENTIAL COLLECTIONS Roberta Hinkle MD LABORATORY Final Result Performing Organization Address [facility] de Phone Number [facility] [address] [place] [address], [id number] * ORDER PLATELET PHERESIS, 1 Units (07/30/2020 3:46 PM RESIDENTIAL COLLECTIONS) UNITS ORDERED 1 07/30/2020 3:47 PM RESIDENTIAL COLLECTIONS [facility] BLOOD UNIT NUMBER [id number] 07/30/2020 11:29 PM RESIDENTIAL COLLECTIONS [facility] PRODUCT: PLT PHERESIS LEUKOPOOR 07/30/2020 11:29 PM RESIDENTIAL COLLECTIONS [facility] UNIT DIVISION 00 07/30/2020 11:29 PM RESIDENTIAL COLLECTIONS [facility] LAB BLOOD UNIT STATUS TRANSFUSED,FINAL 07/31/2020 3:50 AM RESIDENTIAL COLLECTIONS [facility] ISSUE DATE/TIME [id number] 021 3:50 AM RESIDENTIAL COLLECTIONS [facility] PRODUCT CODE [id number] 07/31/2020 3:50 AM [facility]IDENTIAL COLLECTIONS [facility] ABO/RH Unit A POS 07/31/2020 3:50 AM [facility]IDENTIAL COLLECTIONS [facility] ABO/RH UNIT ISBT CODE [id number] 07/31/2020 3:50 AM RESIDENTIAL COLLECTIONS [facility] BLOOD UNIT EXPIRATION DATE [id number] 07/31/2020 3:50 AM [facility]IDENTIAL COLLECTIONS [facility] TRANSFUSION STATUS OK TO TRANSFUSE 07/30/2020 11:29 PM [facility]IAL [facility]LECTIONS [facility] 07/30/2020 3:46 PM RESIDENTIAL COLLECTIONS Ania Be CUSTODIAL MAINTENANCE WORKER BLOOD BANK PRODUCT ORDERABLES F inal Result [facility] [address] [place] [address], [place] [phone] [id number] * BIOFIRE PCR UPPER RESPIRATORY PROFILE (RESPIRATORY PCR PANEL 2) (07/30/2020 3:25 PM RESIDENTIAL COLLECTIONS) ADENOVIRUS PCR (RESP) NOT DETECTED NOT DETECTED 07/30/2020 4:30 PM RESIDENTIAL COLLECTIONS [facility] CORONAVIRUS 229E PCR (RESP) NOT DETECTED NOT DETECTED 07/30/2020 4:30 PM RESIDENTIAL COLLECTIONS [facility] CORONAVIRUS HKU1 PCR (RESP) NOT DETECTED NOT DETECTED 07/30/2020 4:30 PM [facility]IDENTIAL COLLECTIONS [facility] CORONAVIRUS NL63 PCR (RESP) NOT DETECTED NOT DETECTED 07/30/2020 4:30 PM [facility]IDENTIAL COLLECTIONS [facility] CORONAVIRUS OC43 PCR (RESP) NOT DETECTED NOT DETECTED 07/30/2020 4:30 PM RESIDENTIAL COLLECTIONS [facility] METAPNEUMOVIRUS PCR (RESP) NOT DETECTED NOT DETECTED 07/30/2020 4:30 PM [facility]IAL COLLECTIONS [facility] RHINOVIRUS/ENTEROV IRUS PCR (RESP) NOT DETECTED NOT DETECTED 07/30/2020 4:30 PM [facility]IAL [facility]LECTIONS [facility] INFLUENZA A PCR (RESP) NOT DETECTED NOT DETECTED 07/30/2020 4:30 PM [facility]IDENTIAL COLLECTIONS [facility] INFLUENZA B PCR (RESP) NOT DETECTED NOT DETECTED 07/30/2020 4:30 PM [facility]IDENTIAL COLLECTIONS [facility] PARAINFLUENZA 1 PCR (RESP) NOT DETECTED NOT DETECTED 07/30/2020 4:30 PM [facility]IDENTIAL COLLECTIONS [facility] PARAINFLUENZA 2 PCR (RESP) NOT DETECTED NOT DETECTED 07/30/2020 4:30 PM RESIDENTIAL COLLECTIONS [facility] PARAINFLUENZA 3 PCR (RESP) NOT DETECTED NOT DETECTED 07/30/2020 4:30 PM RESIDENTIAL COLLECTIONS [facility] PARAINFLUENZA 4 PCR (RESP) NOT DETECTED NOT DETECTED 07/30/2020 4:30 PM [facility]IAL COLLECTIONS [facility] RSV PCR (RESP) NOT DETECTED NOT DETECTED 07/30/2020 4:30 PM [facility]IAL COLLECTIONS [facility] B PARAPERTUSIS PCR (RESP) NOT DETECTED NOT DETECTED 07/30/2020 4:30 PM [facility]IAL COLLECTIONS [facility] BORDETELLA PERTUSSIS PCR (RESP) NOT DETECTED NOT DETECTED 07/30/2020 4:30 PM RESIDENTIAL COLLECTIONS [facility] CHLAMYDOPHILA PNEUMONIAE PCR (RESP) NOT DETECTED NOT DETECTED 07/30/2020 4:30 PM RESIDENTIAL COLLECTIONS [facility] MYCOPLASMA PNEUMONIAE PCR (RESP) NOT DETECTED NOT DETECTED 07/30/2020 4:30 PM [facility]IDENTIAL COLLECTIONS [facility] CORONAVIRUS SARS COV 2 PCR (RESP) NOT DETECTED NOT DETECTED 07/30/2020 4:30 PM [facility]IAL [facility]LECTIONS [facility] Comment: THE SARS-CoV-2 TEST HAS BEEN AUTHORIZED BY THE FDA UNDER AN EUA FOR USE BY AUTHORIZED LABORATORIES. NASOPHARYNGEAL SWAB / Unknown 07/30/2020 3:25 PM RESIDENTIAL COLLECTIONS Ania Be NP MICROBIOLOGY - GENERAL ORDERABL ES Final Result [facility] [address] [place] [address], [id number] * TYPE AND SCREEN (07/30/2020 2:49 PM [facility]IDENTIAL [facility]LECTIONS) ABO/RH A POSITIVE 07/30/2020 3:51 PM [facility]IDENTIAL COLLECTIONS [facility] ANTIBODY SCREEN NEGATIVE 07/30/2020 3:51 PM [facility]IDENTIAL COLLECTIONS [facility] SAMPLE EXPIRATION 08/02/2020,2 359 07/30/2020 3:09 PM [facility]IDENTIAL COLLECTIONS [facility] 07/30/2020 2:49 PM RESIDENTIAL COLLECTIONS us Ania Be CUSTODIAL MAINTENANCE WORKER BLOOD BANK TEST ORDERABLES Ashley castanon Result [facility] [address] [place] [address], [id number] * (ABNORMAL) BASIC METABOLIC PANEL (07/30/2020 2:49 PM RESIDENTIAL COLLECTIONS) Pathologist [facility] SODIUM S/P/B 138 136 - 145 MMOL/L 07/30/2020 3:29 PM [facility] POTASSIUM S/P/B 4.0 3.5 - 5.1 MMOL/L 07/30/2020 3:29 PM [facility] CHLORIDE S/P/B 106 98 - 107 MMOL/L 07/30/2020 3:29 PM [facility] CO2 27.6 21.0 - 32.0 MMOL/L 07/30/2020 3:29 PM [facility]IDENTIAL COLLECTIONS [facility] GLUCOSE 81 74 - 106 MG/DL 07/30/2020 3:29 PM [facility] BUN 10 7 - 18 MG/DL 07/30/2020 3:29 PM [facility] CREATININE S/P/B 0.69 0.55 - 1.02 MG/DL 07/30/2020 3:29 PM [facility] CALCIUM S/P/B 8.7 8.5 - 10.1 MG/DL 07/30/2020 3:29 PM RESIDENTIAL COLLECTIONS [facility] ANION GAP 4.4(L) 5.0 - 15.0 MMOL/L 07/30/2020 3:29 PM [facility]IDENTIAL COLLECTIONS [facility] Comment:REFERENCE RANGE NOT ESTABLISHED OSMOLALITY (CALC) 284 MOSM/KG 021 3:29 PM RESIDENTIAL COLLECTIONS [facility] Comment:REFERENCE RANGE NOT ESTABLISHED EGFR NON-AFR. AMER. >90 >90 ML/MIN/1. 73 M2 07/30/2020 3:29 PM [facility]IDENTIAL COLLECTIONS [facility] EGFR AFR. AMER. >90 >90 ML/MIN/1. 73 M2 07/30/2020 3:29 PM [facility]LECTIONS [facility] GFR NOTES GFR REFERENCE S: 07/30/2020 3:29 PM [facility]IAL [facility]LECTIONS [facility] Comment: THE ESTIMATED GFR IS CALCULATED USING THE 2009 CKD-EPI EQUATION. THE FOLLOWING CATEGORIES FOR GRADING RENAL FUNCTION ARE RECOMMENDED BY THE INTERNATIONAL SOCIETY OF NEPHROLOGY (KDIGO 2012 CLINICAL PRACTICE GUIDELINE). G1,NORMAL OR HIGH: >89 ml/min/1.73 m2 G2,MILDLY DECREASED: 60-89 ml/min/1.73 m2 G3A,MILDLY TO MODERATELY DECREASED: 45-59 ml/min/1.73 m2 G3B,MODERATELY TO SEVERELY DECREASED: 30-44 ml/min/1.73 m2 G4,SEVERELY DECREASED: 15-29 ml/min/1.73 m2 G5,KIDNEY FAILURE: <15 ml/min/1.73 m2 07/30/2020 2:49 PM RESIDENTIAL COLLECTIONS Ania Be CUSTODIAL MAINTENANCE WORKER LABORATORY Final Result [facility] [address] [place] [address], [id number] * (ABNORMAL) CBC W/DIFF AUTOMATED (07/30/2020 2:49 PM RESIDENTIAL COLLECTIONS) WBC 4.7 4.0 - 10.8 x10'3/uL 07/30/2020 3:12 PM RESIDENTIAL COLLECTIONS [facility] RBC 4.42 4.10 - 5.40 x10'6/uL 07/30/2020 3:12 PM [facility] HGB 12.4 12.0 - 16.0 G/DL 07/30/2020 3:12 PM [facility] HCT 40.5 36.0 - 47.0 % 07/30/2020 3:12 PM [facility] MCV 91.6 78.0 - 100.0 FL 07/30/2020 3:12 PM [facility] MCH 28.1 27.0 - 31.0 PG 07/30/2020 3:12 PM [facility] MCHC 30.6(L) 33.0 - 36.0 G/DL 07/30/2020 3:12 PM [facility] RDW 13.7 11.5 - 14.5 % 07/30/2020 3:12 PM [facility] PLT 16(LL) 150 - 350 x10'3/uL 07/30/2020 3:25 PM [facility] Comment: CRITICAL RESULT, SPECIMEN DATE, TIME WERE READ BACK BY ROSE JENKINS @ 1520 07/30/2020 BY TYRELL LARGE PLATELETS PRESENT MPV UNABLE TO PERFORM TEST 7.4 - 10.4 FL 07/30/2020 3:12 PM [facility] ABS. NEUTROPHILS TOTAL 3.00 1.60 - 8.30 x10'3/uL 07/30/2020 3:12 PM [facility] ABS. LYMPHOCYTES 0.63(L) 0.80 - 4.70 x10'3/uL 07/30/2020 3:12 PM [facility] ABS. MONOCYTES 0.25 0.00 - 1.50 x10'3/uL 07/30/2020 3:12 PM [facility] ABS. EOSINOPHILS 0.74(H) 0.00 - 0.40 x10'3/uL 07/30/2020 3:12 PM [facility] ABS. BASOPHILS 0.07 0.00 - 0.20 x10'3/uL 07/30/2020 3:12 PM RESIDENTIAL COLLECTIONS [facility] ABS. IMMATURE GRANULOCYTES 0.01 0.00 - 0.03 x10'3/uL 07/30/2020 3:12 PM RESIDENTIAL COLLECTIONS [facility] ABS. NUCLEATED RBC'S 0.00 0.0 x10'3/uL 07/30/2020 3:12 PM RESIDENTIAL COLLECTIONS [facility] 07/30/2020 2:49 PM RESIDENTIAL COLLECTIONS us Ania Be CUSTODIAL MAINTENANCE WORKER LABORATORY Final Result [facility] [address] [place] [id number], [id number] * Pathology (07/30/2020 12:00 AM RESIDENTIAL COLLECTIONS) PATHOLOGY [facility] ? Department of Laboratory Medicine ?[address] [facility] ?[place] [address] ? , extension [phone] ? Pathology Report ? Peripheral Smear Report Name: HILLARY DO ? Specimen #: [id number] Age: 12 1990 (Age: 30) ?Location: [facility] Sex: F ?Procedure Date: 07/30/2020 Hospital #: [id number] ?Date Received: 08/01/2020 Date Reported: 08/01/2020 Provider: ROBERTA HINKLE MD Source: Peripheral blood Clinical History: The patient is a 30-year-old female with thrombocytopenia. ??Peripheral smear review is performed at the request of Dr. Roberta Hinkle. FINAL DIAGNOSIS: PERIPHERAL BLOOD, SMEAR REVIEW: ? - THROMBOCYTOPENIA, SEE COMMENT. ? - LYMPHOPENIA, MILD. ? - MILD EOSINOPHILIA. Diagnosis Comment: Noted is a patient with thrombocytopenia. ??No evidence of thrombotic microangiopathy is noted on smear review. ??Possibilities would include peripheral utilization, destruction or sequestration. ??Patient is noted to be hepatitis C positive. ??Correlation with clinical and serologic markers are necessary. ??There is mild lymphopenia and is noted that flow cytometry is requested by the clinician. ??No flow cytometric abnormalities are present in the specimen. ??See separate flow cytometry report ([id number]). Electronically Signed Out ? Eladio ??Khari Vasquez M.D., Ph.D. INTERPRETATION: Peripheral Blood Comments: COMPLETE BLOOD COUNT RESULTS CBC WITH DIFF ?WBC ?4.7 ? [4.0-10.8] ?x10'3/uL ?RBC ?4.42 ? [4.10-5.40] ?x10'6/uL ?HEMOGLOBIN ? 12.4 ? [12.0-16.0] ?G/DL ?HEMATOCRIT ? 40.5 ? [36.0-47.0] ?% ?MCV ?91.6 ? [78.0-100.0] ?FL ?MCH ?28.1 ? [27.0-31.0] ?PG ?MCHC ? * ?30.6 ? [33.0-36.0] ?G/DL ?RDW ?13.7 ? [11.5-14.5] ?% ?PLATELET COUNT ?16 ? [150-350] ?x10'3/uL ?ABS TOTAL NEUTROPHILS ? 3.00 ? [1.60-8.30] ?x10'3/uL ?ABS. LYMPHOCYTES ? * ?0.63 ? [0.80-4.70] ?x10'3/uL ?ABS. MONOCYTES ?0.25 ? [0.00-1.50] ?x10'3/uL ?ABS. EOSINOPHILS ? * ?0.74 ? [0.00-0.40] ?x10'3/uL ?ABS. BASOPHILS ?0.07 ? [0.00-0.20] ?x10'3/uL ?ABS. IMMATURE GRANS ? 0.01 ? [0.00-0.03] ?x10'3/uL ?NUCLEATED RBCS ?0.00 ? [0.0] ? x10'3/uL RED BLOOD CELLS: Hemoglobin is within normal limits (12.4 g/dL). ??No evidence of increase in atypical forms is noted. ?? WHITE BLOOD CELLS: Total white cell counts are within normal limits though there is a mild lymphopenia. ??Neutrophils are within normal limits with no evidence of left shift or increased blasts. ??Lymphocytes are decreased with some reactive forms and are otherwise unremarkable in nature. ?? PLATELETS: Platelet counts are decreased with some larger forms. ??No other specific abnormalities are seen. [facility] 07/30/2020 08/01/2020 8:3 9 AM [facility]IDENTIAL COLLECTIONS Comment:PERIPHERAL BLOOD us Roberta Hinkle MD PATHOLOGY/CYTOLOGY ORDERABLES Final Result [facility] [address] [place] [address], [id number] * Flow Cytometry (07/30/2020 12:00 AM RESIDENTIAL COLLECTIONS) FLOW CYTOMETRY RESULTS [facility] ? Department of Laboratory Medicine ?[address] [facility] ?[place] [address] ? , extension [phone] ? Pathology Report ? Flow Cytometry Report Name: HILLARY DO ? Specimen #: [id number] Age: 12 1990 (Age: 30) ?Location: [facility] Sex: F ?Procedure Date: 07/30/2020 [facility] #: [id number] ?Date Received: 07/30/2020 Date Reported: 08/04/2020 Provider: ROBERTA HINKLE MD Source: Peripheral blood FINAL DIAGNOSIS: PERIPHERAL BLOOD, FLOW CYTOMETRIC ANALYSIS: ? - NO FLOW CYTOMETRIC ABNORMALITIES, SEE COMMENT. Diagnosis Comment: By flow cytometry no atypical population of lymphocytes is appreciated. ??No increase in immature forms is noted. ??Correlation with peripheral smear results is recommended. Result: Flow cytometry demonstrates a cellular viability of 96%. ??Gating performed demonstrates the majority of lymphocytes are mature T-cells expressing CD2, CD3, CD5, and CD7. ??They have a CD4:CD8 ratio of 1.8. ?? A small population of B-cells is present which demonstrates a kappa:lambda ratio of 1.5. ??No increase in immature forms is noted. ?? Tested: CD45, CD14, CD7, CD2, CD4, CD8, CD3, CD43, CD38, CD10, CD19, CD23, CD5, CD20, Surface Ig [place], Surface Ig Lambda, CD56, CD52, CD22. ? Electronically Signed Out ? Eladio ??Khari Vasquez M.D., Ph.D. This test was developed and its performance characteristics determined by [facility]. It has not been cleared or approved by the U.S. Food and Drug Administration. However, the use of Analyte Specific Reagents does not require FDA approval. [facility] 07/30/2020 07/30/2020 6:4 0 PM [facility]IDENT[facility]LECTIONS Comment:PERIPHERAL BLOOD us Roberta Hinkle MD PATHOLOGY/CYTOLOGY ORDERABLES Final Result [facility] [address] [place] [id number], [id number] documented in this encounter Visit Diagnoses Diagnosis Thrombocytopenia (CMS/HCC)- Primary Thrombocytopenia, unspecified Thrombocytopenia (CMS/HCC) Thrombocytopenia, unspecified documented in this encounter Administered Medications Inactive Administered Medications - up to 3 most recent administrations Medication Order MAR Action Action Date Dose Rate Site acetaminophen (TYLENOL) tablet 650 mg 650 mg, Oral, Every 4 hours PRN, Mild pain (Scale 1 - 3), Starting on Tue07/30/20 at 1542, Until Tue07/31/20 at 1841, Maximum dose of acetaminophen is 4000 mg from all sources in 24 hours. Given 07/31/2020 1:50 PM [facility]IDENTIAL COLLECTIONS 650 mg Given 07/31/2020 12:39 AM [facility]IDENTIAL COLLECTIONS 650 mg diphenhydrAMINE (BENADRYL) capsule 25 mg 25 mg, Oral, Once, 1 dose, On Tue07/31/20 at 0115 Given 07/31/2020 1:21 AM RESIDENTIAL COLLECTIONS 25 mg immune globulin (Human) (GAMMAGARD, GAMUNEX-C) 10 GM/100ML infusion 30 g 30 g, Intravenous, Once, 1 dose, On Tue07/31/20 at 1315, GAMUNEX-C Total Dose: 30grams Monitor vital signs prior to initiation, 15 minutes after initiation, and then every 30 minutes. If tolerated and no signs/symptoms of anaphylactic reaction or respiratory insufficiency, increase rate by increments every 30 minutes to the maximum rate: Start at 36 mL/hr (0.6 mL/kg/hr) for 30 minutes. If tolerated, increase to 61 mL/hr (1 mL/kg/hr) for 30 minutes, then 122 mL/hr (2 mL/kg/hr) for 30 minutes, then 243 mL/hr (4 mL/kg/hr) for 30 minutes, then 292 mL/hr (4.8 mL/kg/hr) MAXIMUM rate until infusion complete. Rate/Dose Change 07/31/2020 2:03 PM [facility]IDENTIAL [facility]LECTIONS 61 mL/hr New Bag 07/31/2020 1:23 PM RESIDENTIAL COLLECTIONS 30 g 36 mL/hr immune globulin (Human) (GAMMAGARD, GAMUNEX-C) infusion 60 g 60 g, Intravenous, Once, 1 dose, On Tue07/30/20 at 1600, GAMMAGARD 10 % Total Dose: 1 gm/kg rounded down to 60 g Monitor vital signs prior to initiation, 15 minutes after initiation, and then every 30 minutes. If tolerated and no signs/symptoms of anaphylactic reaction or respiratory insufficiency, increase rate by increments every 30 minutes to the maximum rate: Start at 30 mL/hr (0.5 mL/kg/hr) for 30 minutes. If tolerated, double to 61 mL/hr (1 mL/kg/hr) for 30 minutes, then 122 mL/hr (2 mL/kg/hr) for 30 minutes, then 243 mL/hr (4 mL/kg/hr) for 30 minutes, then 304 mL/hr (5 mL/kg/hr) MAXIMUM rate until infusion complete. Rate/Dose Change 07/30/2020 7:49 PM RESIDENTIAL COLLECTIONS 304 mL/h r New Bag 07/30/2020 7:47 PM [facility]IDENT[facility]LECTIONS 60 g New Bag 07/30/2020 7:24 PM [facility]IDENTIAL COLLECTIONS 10 g 243 mL/hr sodium chloride 0.9% infusion at 10 mL/hr, Intravenous, Continuous, Starting on Tue07/30/20 at 1600, Until Tue07/31/20 at 1559, Infuse at TKO rate New Bag 07/30/2020 8:55 PM [facility]IDENTIAL COLLECTIONS 250 mLs 10 mL/hr sodium chloride 0.9% infusion at 100 mL/hr, Intravenous, Continuous, Starting on Tue07/31/20 at 0430, Until Tue07/31/20 at 1841 New Bag 07/31/2020 5:03 AM [facility]IDENTIAL COLLECTIONS 100 mL/hr documented in this encounter Active and Recently Administered Medications Times are shown in RESIDENTIAL COLLECTIONS. Scheduled Medication Order 07/29/2020 07/30/2020 07/31/2020 diphenhydrAMINE (BENADRYL) capsule 25 mg (COMPLETED) 25 mg, Oral, Once, 1 dose, On Tue07/31/20 at 0115 0121 (Given - Provid er: Hossein Le RN) immune globulin (Human) (GAMMAGARD, GAMUNEX-C) 10 GM/100ML infusion 30 g (COMPLETED) 30 g, Intravenous, Once, 1 dose, On Tue07/31/20 at 1315, GAMUNEX-C Total Dose: 30grams Monitor vital signs prior to initiation, 15 minutes after initiation, and then every 30 minutes. If tolerated and no signs/symptoms of anaphylactic reaction or respiratory insufficiency, increase rate by increments every 30 minutes to the maximum rate: Start at 36 mL/hr (0.6 mL/kg/hr) for 30 minutes. If tolerated, increase to 61 mL/hr (1 mL/kg/hr) for 30 minutes, then 122 mL/hr (2 mL/kg/hr) for 30 minutes, then 243 mL/hr (4 mL/kg/hr) for 30 minutes, then 292 mL/hr (4.8 mL/kg/hr) MAXIMUM rate until infusion complete. 1323 (New Bag - Provider: Lola Valdivia RN)1403 (Rate/Dose Change - Provider: Lola Valdivia RN) immune globulin (Human) (GAMMAGARD, GAMUNEX-C) infusion 60 g (COMPLETED) 60 g, Intravenous, Once, 1 dose, On Tue07/30/20 at 1600, GAMMAGARD 10 % Total Dose: 1 gm/kg rounded down to 60 g Monitor vital signs prior to initiation, 15 minutes after initiation, and then every 30 minutes. If tolerated and no signs/symptoms of anaphylactic reaction or respiratory insufficiency, increase rate by increments every 30 minutes to the maximum rate: Start at 30 mL/hr (0.5 mL/kg/hr) for 30 minutes. If tolerated, double to 61 mL/hr (1 mL/kg/hr) for 30 minutes, then 122 mL/hr (2 mL/kg/hr) for 30 minutes, then 243 mL/hr (4 mL/kg/hr) for 30 minutes, then 304 mL/hr (5 mL/kg/hr) MAXIMUM rate until infusion complete. 1703 (New Bag - Provider: Jann Quiñones RN - Comment: Multiple vials)1738 (Rate/Dose Change - Provider: Jann Quiñones RN)1821 (Rate/Dose Change - Provider: Jann Quiñones RN)1902 (Rate/Dose Change - Provider: Jann Quiñones RN)1924 (New Bag - Provider: Jann Quiñones RN)194 (New Bag - Provider: Pola Dalal RN)194 (Rate/Dose Change - Provider: Pola Dalal RN) Continuous Medication Order 07/29/2020 07/30/2020 07/31/2020 sodium chloride 0.9% infusion at 10 mL/hr, Intravenous, Continuous, Starting on Tue07/30/20 at 1600, Until Brittni 07/31/20 at 1559, Infuse at TKO rate 2055 (New Bag - Provider: Hossein Le RN) sodium chloride 0.9% infusion at 100 mL/hr, Intravenous, Continuous, Starting on Brittni 07/31/20 at 0430, Until Brittni 07/31/20 at 1841 0503 (New Bag - Provider: Hossein Le RN) PRN Medication Order 07/29/2020 07/30/2020 07/31/2020 acetaminophen (TYLENOL) tablet 650 mg 650 mg, Oral, Every 4 hours PRN, Mild pain (Scale 1 - 3), Starting on Tue07/30/20 at 1542, Until Brittni 07/31/20 at 1841, Maximum dose of acetaminophen is 4000 mg from all sources in 24 hours. 0039 (Given - Provid er: Hossein Le RN)1350 (Given - Provider: Lola Valdivia RN) documented in this encounter Additional Health Concerns Infection Onset Date Last Indicated Resolved Time COVID-19 Rule Out 07/30/2020 07/30/2020 07/30/2020 4:31 PM RESIDENTIAL COLLECTIONS documented as of this encounter Care Teams [employer] Developer Relationship Specialty Start Date End Date Alejandro Boss MD PCP - General FAMILY PRACTICE 12/10/19 documented as of this encounter
--- OUTSIDE RECORDS SUMMARY | 2024-07-11 05:43 | XMS_ITS | Encounter Summary ---
Author Organization [facility] Address [address] [place] [address]. [place] [address] [place] [address] Care Team Providers Care Nurse Advocate Name Role Phone Alejandro Blevins MD Primary Care Provider [phone] Reason for Visit * Reason Comments Follow Up Lab Results Encounter Details Date Type Department Care Team ([facility] st Contact Info) Description 07/08/2020 11:40 AM POSITION CLASSIFIER Office Visit [address] [place] [address] Roberta Alex MD [address] [place] [address] Follow Up; Lab Results Social History Tobacco Use Types Packs/Day Years Used Date Smoking Tobacco: Every Day Smokeless Tobacco: Never Comments Yes Sex and Gender Information Value Date Recorded Sex Assigned at Not on file Legal Sex Female 11:30 PM POSITION CLASSIFIER Gender Identity Female 11/10/2021 3:09 PM CDT Sexual Orientation Straight 11/10/2021 3: 09 PM CDT COVID-19 Exposure Response Date Recorded In the last month, have you been in contact with someone who was confirmed or suspected to have Coronavirus / COVID-19? No / Unsure 07/08/2020 11:36 AM POSITION CLASSIFIER documented as of this encounter Last Filed Vital Signs Vital Sign Reading Time Taken Comments Blood Pressure 141/110 07/08/2020 12:06 PM POSITION CLASSIFIER Pulse 88 07/08/2020 12:06 PM POSITION CLASSIFIER Temperature 36.9 ??C (98.4 ??F) 07/08/2020 12:[address] Respiratory Rate 24 07/08/2020 12:06 PM POSITION CLASSIFIER Oxygen Saturation - - Inhaled Oxygen Concentration - - Weight 59 kg (130 lb 1.1 oz) 07/08/2020 12:06 PM POSITION CLASSIFIER Height 165.1 cm (5' 5 ) 07/08/2020 12:06 PM POSITION CLASSIFIER Body Mass Index 21.64 07/08/2020 12:06 PM POSITION CLASSIFIER documented in this encounter Progress Notes * Roberta Alex MD - 07/08/2020 11:40 AM CST Hematology/Oncology Note Identifying Data Hillary Smalls is a 30-year-old female Reason for Visit: Follow Up and Lab Results History of Present Illness: Hillary Smalls is a 30-year-old female who follows with us for chronic ITP, severe iron deficiency, B12 deficiency noted in 11/2019 when she was with twins at 20 weeks gestation. Work-up for other causes of anemia including hemolytic work-up, Hgb electrophoresis, MARQUITA were negative. She had no care until fifth month. She followed closely with sweeper operator highways-gyn physician Dr Machelle Costello at [facility] in [place]. Patient has history of chronic thrombocytopenia and iron deficiency and followed with [facility] hydraulic riveter Dr. Dick Bonilla 5 years ago. She was maintained on closeobservation with her blood counts platelets ranging 40,000, received multiple IV Venofer for severeiron deficiency anemia, B12 supplementation until she went [...] is here for follow-up on blood counts. Today platelet count 27K with no bleeding. Patientreports good energy levels. She has recently started treatment for hepatitis C with [facility] hepatology.Denied any fevers, bleeding, new changes in medications. She has stopped using any recreational drugs ROS General: Fatigue as above Skin: No [...] file Gets together: Not on file Attends presybeterian service: Not on file Active member of [...] Outpatient Medications Medication Sig Dispense Refill ??? folic acid 1 MG tablet Take 1 tablet (1 mg total) by mouth daily. 30 tablet 2 ??? haicukr-eibelcrhscgtp-aksytwco 250-250-65 MG tablet Take 1 tablet by mouth every 6 (six) hours as needed for Pain. ??? calcium carbonate 500 MG chewable tablet Chew 1 tablet by mouth every 2 (two) hours as needed. ??? ferrous sulfate, 65 mg elemental, 325 (65 FE) MG tablet Take 325 mg by mouth daily. ??? vitamin 27-1 [...] anemia ??? Chronic ITP (idiopathic thrombocytopenia) (CMS/HCC) Vitals Height: 5' 5 (1.651 m) , Weight: 59 kg (130 lb 1.1 oz) , BSA (Calculated - sq m): 1.64 sq meters , BP: (!) 141/110 , Temp: 98.4 ??F (36.9 ??C) , Pulse: 88 , Resp: 24 Physical Exam Constitutional Appears [...] ABS. NEUTROPHILS Date Value Ref Range Status 07/08/2020 5.89 1.60 - 8.30 x10'3/uL Final WBC Date Value Ref Range Status 07/08/2020 8.7 4.5 - 10.8 x10'3/uL Final HGB Date Value Ref Range Status 07/08/2020 12.1 12.0 - 16.0 G/DL Final HCT Date Value Ref Range Status 07/08/2020 39.4 36.0 - 47.0 % Final PLT Date Value Ref Range Status 07/08/2020 26 (LL) 150 - 350 x10'3/uL Final Comment: CRITICAL VALUE CALLED TO MARIUM AT 1204 READ BACK AND VERIFIED RESULT CHECKED Assessment and Plan 1. Acute on chronic thrombocytopenia: secondary to HCV infection, immune mediated. -Given the drop in platelet counts, we discussed about treatment with dexamethasone 40 mg once daily x 4 days along with PPI. Currently her HCV viral load is high, and she is on treatments which can also play a role in the drop in platelet counts. She will get repeat CBC next week and will go from there. 2. Iron deficiency anemia, B12 deficiency, folic acid deficiency: This seems to be improving. Ferritin pending. Continue on oral B12, folic acid, iron supplements for now. 3. Chronic HCV infection: She is currently started on HCV antiviral treatment and follows with [facility] hepatology team. 4. Polysubstance abuse, IVDA, UDS positive for amphetamine. Patient has quit using recreational drugs. 6. Positive Anti - Cardiolipin IGM (~40) with negative Anti B2 GP IGG/IGM , LA test negative, MARQUITA negative. On low dose ASA 81mg. Repeat ACLA IgG/IgM pending today. Time Spent: Approximately 25 minutes was spent in direct patient consultation and the majority of that time (>50%) was spent on counseling and coordination of care. Roberta Alex MD CC: Alejandro Blevins MD TION CLASSIFIER documented in this encounter Plan of Treatment Upcoming Encounters Date Type Department Care Team (Late st Contact Info) Description 09/25/2024 11:30 AM POSITION CLASSIFIER Appointment [facility] [place] [address] [address] Roberta Alex MD [address] [place] [address] 09/25/2024 11:40 AM POSITION CLASSIFIER Office Visit [facility] [place] [address] [place] [address] Roberta Alex MD [address] [place] [address] documented as of this encounter Procedures Procedure Name Priority Date/Time Associated Diagnosis Comments COMPREHENSIVE METABOLIC PANEL Routine 07/08/2020 11:55 AM POSITION CLASSIFIER Acute ITP (CMS/HCC HHS/HCC) documented in this encounter Results * (ABNORMAL) CBC W/DIFF AUTOMATED (07/21/2020 12:20 PM POSITION CLASSIFIER) WBC 9.5 4.5 - 10.8 x10'3/uL 07/21/2020 12:29 PM [facility] RBC 4.69 4.10 - 5.40 x10'6/uL 07/21/2020 12:29 PM [facility] HGB 13.0 12.0 - 16.0 G/DL 07/21/2020 12:29 PM [facility] HCT 42.1 36.0 - 47.0 % 07/21/2020 12:29 PM [facility] MCV 89.8 78.0 - 100.0 FL 07/21/2020 12:29 PM [facility] MCH 27.7 27.0 - 31.0 PG 07/21/2020 12:29 PM [facility] MCHC 30.9(L) 33.0 - 36.0 G/DL 07/21/2020 12:29 PM [facility] RDW 14.4 11.5 - 14.5 % 07/21/2020 12:29 PM [facility] PLT 28(LL) 150 - 350 x10'3/uL 07/21/2020 12:29 PM [facility] Comment: CRITICAL VALUE CALLED TO MARIUM AT 1228 READ BACK AND VERIFIED RESULT CHECKED MPV RESULTS NOT AVAILABLE 7.4 - 10.4 FL 07/21/2020 12:29 PM [facility] DIFFERENTIAL COMMENT NORMAL REFERENCE RANGE NOT ESTABLISHED FOR THE PROPORTIONAL LEUKOCYTE DIFFERENTIAL. 07/21/2020 12:29 PM [facility] SEG NEUTROPHILS 62.3 % 0 12:39 PM [facility] LYMPHOCYTES 24.6 % 07/21/2020 12:39 PM [facility] MONOCYTES 4.6 % 07/21/2020 12:39 PM [facility] EOSINOPHILS 7.3 % 07/21/2020 12:39 PM [facility] BASOPHILS 0.8 % 07/21/2020 12:39 PM [facility] IMMATURE GRANS % 0.4 % 07/21/20 20 12:39 PM [facility] NRBC 0.0 % 07/21/2020 12:39 PM [facility] ABS. NEUTROPHILS 5.92 1.60 - 8.30 x10'3/uL 07/21/2020 12:39 PM [facility] ABS. LYMPHOCYTES 2.34 0.80 - 4.70 x10'3/uL 07/21/2020 12:39 PM [facility] ABS. MONOCYTES 0.44 0.00 - 1.50 x10'3/uL 07/21/2020 12:39 PM [facility] ABS. EOSINOPHILS 0.69(H) 0.00 - 0.40 x10'3/uL 07/21/2020 12:39 PM [facility] ABS. BASOPHILS 0.08 0.00 - 0.20 x10'3/uL 07/21/2020 12:39 PM [facility] ABS. IMMATURE GRANULOCYTES 0.04(H) 0.00 - 0.03 x10'3/uL 07/21/2020 12:39 PM [facility] ABS. NUCLEATED RBC'S 0.00 0.00 x10'3/uL 07/21/2020 12:39 PM [facility] PLT MORPH. DECREASED 07/21/2020 12:39 PM [facility] RBC MORPHOLOGY 1+ 07/21/2020 12:39 PM [facility] Comment:POIKILOCYTOSIS 07/21/2020 12:2 0 PM POSITION CLASSIFIER us Roberta Alex MD LABORATORY Final Result [facility] [address] [email or web address] [address], * (ABNORMAL) COMPREHENSIVE METABOLIC PANEL (07/08/2020 11:55 AM [facility]) SODIUM S/P/B 140 136 - 145 MMOL/L 07/08/2020 12:58 PM [facility] POTASSIUM S/P/B 4.2 3.5 - 5.1 MMOL/L 07/08/2020 12:58 PM [facility] CHLORIDE S/P/B 103 98 - 107 MMOL/L 07/08/2020 12:58 PM [facility] CO2 26.4 21.0 - 32.0 MMOL/L 07/08/2020 12:58 PM [facility] GLUCOSE 83 70 - 99 MG/DL 07/08/2020 12:58 PM [facility] Comment: FASTING GLUCOSE 100 TO 125 MG/DL IS CONSISTENT WITH IMPAIRED FASTING GLUCOSE. FASTING GLUCOSE >125 MG/DL IS CONSISTENT WITH DIABETES. RANDOM GLUCOSE >200 MG/DL WITH HYPERGLYCEMIC SYMPTOMS IS CONSISTENT WITH DIABETES. PER ADA GUIDELINES BUN 16 6 - 24 MG/DL 07/08/2020 12:58 PM [facility] CREATININE S/P/B 0.70 0.55 - 1.02 MG/DL 07/08/2020 12:58 PM [facility] CALCIUM S/P/B 9.2 8.4 - 10.5 MG/DL 07/08/2020 12:58 PM [facility] BILIRUBIN TOTAL S/P/B 0.3 0.2 - 1.0 MG/DL 07/08/2020 12:58 PM [facility] Comment: THIS ASSAY IS NOT RECOMMENDED FOR PATIENTS UNDERGOING TREATMENT WITH ELTROMBOPAG DUE TO THE POTENTIAL FOR FALSELY ELEVATED RESULTS. ALKALINE PHOSPHATASE S/P/B 75 37 - 98 U/L 07/08/2020 12:58 PM [facility] AST 30 15 - 37 U/L 07/08/2020 12:58 PM [facility] ALT 93(H) 14 - 59 U/L 07/08/2020 12:58 PM [facility] TOTAL PROTEIN S/P/B 7.6 6.4 - 8.2 G/DL 07/08/2020 12:58 PM [facility] ALBUMIN S/P/B 4.1 3.4 - 5.0 G/DL 07/08/2020 12:58 PM [facility] ANION GAP 10.6 5.0 - 15.0 MMOL/L 07/08/2020 12:58 PM [facility] OSMOLALITY (CALC) 290 MOSM/KG 020 12:58 PM [facility] Comment:REFERENCE RANGE NOT ESTABLISHED EGFR NON-AFR. AMER. >90 >89 ML/MIN/1. 73 M2 07/08/2020 12:58 PM [facility] EGFR AFR. AMER. >90 >89 ML/MIN/1. 73 M2 07/08/2020 12:58 PM [facility] GFR NOTES GFR REFERENCE S: 07/08/2020 12:58 PM [facility] Comment: THE ESTIMATED GFR [...] ml/min/1.73 m2 G5,KIDNEY FAILURE: <15 ml/min/1.73 m2 07/08/2020 11:5 5 AM POSITION CLASSIFIER Roberta Alex MD LABORATORY Final Result [facility] [address] [place] [address], documented in this encounter Visit Diagnoses Diagnosis Acute ITP (CMS/HCC HHS/HCC)- Primary Immune thrombocytopenic purpura Iron deficiency anemia secondary to inadequate dietary iron intake Thrombocytopenia affecting (CMS/HCC HHS/HCC) documented in this encounter Care Teams Nurse Advocate Relationship Specialty Start Date End Date Alejandro Blevnis MD PCP - General FAMILY PRACTICE 12/10/19 documented as of this encounter
--- OUTSIDE RECORDS SUMMARY | 2024-07-11 05:43 | XMS_ITS | Encounter Summary ---
Author Organization [facility] Address [address] [place] [address]. [place], [place] [address] [place] [address] Care Team Providers Care Supervisor Poultry Farm Name Role Phone Alejandro Blevins MD Primary Care Provider [phone] Reason for Visit * Reason Comments Medical Problem Encounter Details Date Type Department Care Team (Late st Contact Info) Description 07/30/2020 10:19 AM CORE EXTRUDER - 07/30/2020 11:33 AM CORE EXTRUDER Emergency [facility] [address] [place] [address] Dominick King MD [address] [place] [id number] Medical Problem Discharge Disposition: Home or Self Care (Routine Discharge) Social History Tobacco Use Types Packs/Day Years Used Date Smoking Tobacco: Former Smokeless Tobacco: Current Comments Yes Sex and Gender Information Value Date Recorded Sex Assigned at Not on file Legal Sex Female 11:30 PM CORE EXTRUDER Gender Identity Female 11/10/2021 3:09 PM CDT Sexual Orientation Straight 11/10/2021 3: 09 PM CDT COVID-19 Exposure Response Date Recorded In the last month, have you been in contact with someone who was confirmed or suspected to have Coronavirus / COVID-19? No / Unsure 07/29/2020 10:35 AM CORE EXTRUDER documented as of this encounter Last Filed Vital Signs Vital Sign Reading Time Taken Comments Blood Pressure 114/73 07/30/2020 11:30 AM CORE EXTRUDER Pulse 73 07/30/2020 11:30 AM CORE EXTRUDER Temperature 36.6 ??C (97.9 ??F) 07/30/2020 10:[address] Respiratory Rate 16 07/30/2020 11:30 AM CORE EXTRUDER Oxygen Saturation 98% 07/30/2020 11:30 AM CORE EXTRUDER Inhaled Oxygen Concentration - - Weight 59.4 kg (131 lb) 07/30/2020 10:34 AM CORE EXTRUDER Height 160 cm (5' 3 ) 07/30/2020 10:34 AM CORE EXTRUDER Body Mass Index 23.21 07/30/2020 10:34 AM CORE EXTRUDER documented in this encounter Discharge Instructions * Attachments The following attachments cannot be sent through Care Everywhere. * Bleeding Precautions (Mexican) documented in this encounter Medications at Time [...] 06/17/2020 01/06/2021 documented as of this encounter ED Notes * Julia Lowery RN - 07/30/2020 11:[address] king calls sjs contact re pt EXTRUDER * Julia Lowery RN - 07/30/2020 11:[address] king speaks with dr gomez, oncology EXTRUDER * Julia Lowery RN - 07/30/2020 10:[address] king places call to oncology for direction for pt EXTRUDER * Emma Jackson RN - 07/30/2020 10:37 AM CST Ambulatory to ED. Sent by cancer center for IVIG. Pt has hx ITP, is awaiting insurance approval to be given IVIG. Sent to ED this morning. Had platelett transfusion yesterday per cancer center. platelets remain low this morning. EXTRUDER EXTRUDER * Dominick King MD - 07/30/2020 10:13 AM CST eMERGENCY dEPARTMENT eNCOUnter CHIEF COMPLAINT Chief Complaint Patient presents with ??? Medical Problem HPI HPI Hillary Smalls is a 30-year-old female who presents to the ER with a complaint of low platelet count and needing to get intravenous immunoglobulin. Patient has a history of ITP and had platelet count of 20,000 yesterday. She received 1 unit of platelets at the infusion center. Today her platelet count was down to 15,000 so she sent in here by her youth liaison officer. Patient states she has no complaints right now. She is menstruating but states that her bleeding is less than it often is withher menstrual period. No other complaints at this time. ALLERGIES Allergies Allergen Reactions ??? Bee Venom Anaphylaxis ??? Shellfish Allergy Anaphylaxis CURRENT MEDICATIONS Current Outpatient Medications Medication Sig ??? Sofosbuvir-Velpatasvir 400-100 MG Tab Take 1 tablet by mouth daily. ??? naproxen sodium 220 MG tablet Take 440 mg by mouth 2 (two) times daily with meals. PAST MEDICAL HISTORY Past Medical History: Diagnosis Date ??? Acute ITP (CMS/HCC) ??? Anemia ??? History of blood transfusion SURGICAL HISTORY History reviewed. No pertinent surgical [...] file Gets together: Not on file Attends adventism service: Not on file Active member of [...] Social History Narrative ??? Not on file FAMILY HISTORY No family history on file. REVIEW OF SYSTEMS Review of Systems All other ROS negative unless noted above in HPI. PHYSICAL EXAM Physical Exam Filed Vitals: 07/30/20 1034 07/30/20 1130 BP: 117/76 114/73 Pulse: 73 73 Resp: 16 16 Temp: 97.9 ??F (36.6 ??C) TempSrc: Temporal SpO2: 99% 98% Weight: 59.4 kg (131 lb) Height: 5' 3 (1.6 m) The patient is a well developed and well nourished adult female in no distress, alert and oriented. HEENT: PERRL, EOMI Nose without drainage Throat without lesions, mucous membranes moist NECK: Supple without adenopathy or rigidity CHEST: Lungs clear and equal to auscultation Heart regular rate and rhythm without murmur ABD: Soft, NABS, non tender EXT: No clubbing, cyanosis, edema NEURO: CN II-XII intact, no focal weakness SKIN: No rash or significant lesions EKG RADIOLOGY No orders to display LABS No results found for this visit on 07/30/20. ED MEDICATIONS Medications - No data to display PROCEDURES Procedures CONSULTS: ED COURSE & MEDICAL DECISION MAKING MDM Patient remained stable and asymptomatic in the emergency department. The case was discussed with her youth liaison officer Dr. Alex who recommends transfer to [facility] for likely 24 hours of hospitalization to administer the IVIG and to monitor the platelet count and response afterward. I placed a call to [facility] in [place] and the patient was placed on the waiting list due to no beds. When I went and updated the patient she stated that she could not wait any longer and was going to deal with some personal issues and either come back or more likely go to [facility] on her own. I told her I certainly cannot recommend this but try to impress upon her whenever she decided that she really needed to get this medication today at the recommendation of her youth liaison officer. FINAL IMPRESSION SNOMED CT(R) 1. Thrombocytopenia (CMS/HCC) PLATELET COUNT BELOW REFERENCE RANGE Roberta Alex MD [address] [facility] [address] Call Discharge Medication List as of 07/30/2020 11:31 AM Dominick King MD 07/30/20 1222 EXTRUDER documented in this encounter Plan of Treatment Upcoming Encounters Date Type Department Care Team (Late st Contact Info) Description 09/25/2024 11:30 AM CORE EXTRUDER Appointment [facility] [address] [place] [address] Roberta Alex MD [address] [place] [address] 09/25/2024 11:40 AM CORE EXTRUDER Office Visit [facility] [address] [place] [address] Roberta Alex MD [address] [place] [address] documented as of this encounter Visit Diagnoses Diagnosis Thrombocytopenia (CMS/HCC)- Primary Thrombocytopenia, unspecified documented in this encounter Care Teams Supervisor Poultry Farm Relationship Specialty Start Date End Date Alejandro Blevins MD PCP - General FAMILY PRACTICE 12/10/19 documented as of this encounter
--- OUTSIDE RECORDS SUMMARY | 2024-07-11 05:43 | XMS_ITS | Encounter Summary ---
Author Organization [facility] Address [address] [place] [address]. [place] [address] [place] [address] Care Team Providers Care Manager Storage Name Role Phone Alejandro Blevins MD Primary Care Provider [phone] Encounter Details Date Type Department Care Team (Latest Contact Info) Description 05/13/2020 Travel Social History Tobacco Use Types Packs/Day Years Used Date Smoking Tobacco: Every Day Smokeless Tobacco: Never Comments Yes Sex and Gender Information Value Date Recorded Sex Assigned at Not on file Legal Sex Female 11:30 PM HOUSING DEVELOPMENT SPECIALIST Gender Identity Female 11/10/2021 3:09 PM [...] st Contact Info) Description 09/25/2024 11:30 AM HOUSING DEVELOPMENT SPECIALIST Appointment [facility] [address] [place] [address] Roberta Alex MD [address] [place] [address] 09/25/2024 11:40 AM HOUSING DEVELOPMENT SPECIALIST Office Visit [facility] [address] [place] [address] Roberta Alex MD [address] [place] [address] documented as of this encounter Visit Diagnoses Not on filedocumented in this encounter Care Teams Manager Storage Relationship Specialty Start Date End Date Alejandro Blevins MD PCP - General FAMILY PRACTICE 12/10/19 documented as of this encounter
--- OUTSIDE RECORDS SUMMARY | 2024-07-11 05:43 | XMS_ITS | Encounter Summary ---
Author Organization [facility] Address [address] [place] [address]. [place] [address] [place] [address] Care Team Providers Care Nurse Ob Name Role Phone Alejandro Blevins MD Primary Care Provider [phone] Encounter Details Date Type Department Care Team (Latest Contact Info) Description 07/30/2020 Travel Social History Tobacco Use Types Packs/Day Years Used Date Smoking Tobacco: Former Smokeless Tobacco: Current Comments Yes Sex and Gender Information Value Date Recorded Sex Assigned at Not on file Legal Sex Female 11:30 PM MERCHANDISE SUPPORT ASSOCIATE Gender Identity Female 11/10/2021 3:09 PM CDT Sexual Orientation Straight 11/10/2021 3: 09 PM CDT COVID-19 Exposure Response Date Recorded In the last month, have you been in contact with someone who was confirmed or suspected to have Coronavirus / COVID-19? No / Unsure 07/30/2020 1:19 PM MERCHANDISE SUPPORT ASSOCIATE documented as of this encounter Functional Status documented as of this encounter Mental Status * Question Answer Entry Date Author Status Because of a physical, mental, or emotional condition, do you have serious difficulty concentrating, remembering, or making decisions? No 07/30/2020 10:46 PM MERCHANDISE SUPPORT ASSOCIATE Nella Le RN Active documented in this encounter Plan of Treatment Upcoming Encounters Date Type Department Care Team (Late st Contact Info) Description 09/25/2024 11:30 AM MERCHANDISE SUPPORT ASSOCIATE Appointment [place] [id number] [facility] [place] [address] Roberta Alex MD [address] [place] [address] 09/25/2024 11:40 AM MERCHANDISE SUPPORT ASSOCIATE Office Visit [facility] [address] [facility] [place] [address] Roberta Alex MD [address] [place] [address] documented as of this encounter Visit Diagnoses Not on filedocumented in this encounter Additional Health Concerns Infection Onset Date Last Indicated Resolved Time COVID-19 Rule Out 07/30/2020 07/30/2020 07/30/2020 4:31 PM MERCHANDISE SUPPORT ASSOCIATE documented as of this encounter Care Teams Nurse Ob Relationship Specialty Start Date End Date Alejandro Blevins MD PCP - General FAMILY PRACTICE 12/10/19 documented as of this encounter
--- OUTSIDE RECORDS SUMMARY | 2024-07-11 05:44 | XMS_ITS | Encounter Summary ---
Author Organization [facility] Address [address] [place] [address]. [place] [address] [place] [address] Care Team Providers Care Chief Nurse Executive Name Role Phone Alejandro Blevins MD Primary Care Provider [phone] Reason for Visit * Reason Comments Infusion Therapy Injection * Treatment/Therapy Plan Authorization (Routine) - Closed Specialty Diagnoses / Procedures Referred By Contac t Referred To Contact Diagnoses Iron deficiency anemia secondary to inadequate dietary iron intake Procedures IRON SUCROSE INJ, 20 MG Roberta Alex MD [address] [place] [address] Phone: tel: fax: [facility] [place] [address] Phone: tel: Referral ID Status Reason Start Date Expiration Date Visits Re quested Visits Authorized [id number] Closed 12/19/2019 04/23/2020 1 3 Encounter Details Date Type Department Care Team (Latest Contact Info) Description 03/14/2020 10:30 AM CDT - 03/14/2020 11:59 PM T Hospital Encounter [facility] [place] [address] Roberta Alex MD [address] [place] [address] Infusion Therapy; Injection Discharge Disposition: Home or Self Care (Routine Discharge) Social History Tobacco Use Types Packs/Day Years Used Date Smoking Tobacco: Every Day Smokeless Tobacco: Never Comments Yes Sex and Gender Information Value Date Recorded Sex Assigned at Not on file Legal Sex Female 11:30 PM SOLAR INSTALLATION FOREMAN Gender Identity Female 11/10/2021 3:09 PM CDT Sexual Orientation Straight 11/10/2021 3: 09 PM CDT COVID-19 Exposure Response Date Recorded In the last month, have you been in contact with someone who was confirmed or suspected to have Coronavirus / COVID-19? No / Unsure 03/14/2020 11:24 AM CDT documented as of this encounter Last Filed Vital Signs Vital Sign Reading Time Taken Comments Blood Pressure 120/80 03/14/2020 11:33 AM CDT Pulse 105 03/14/2020 11:33 AM CDT Temperature 36.3 ??C (97.4 ??F) 03/14/2020 11:33 AM C DT Respiratory Rate 20 03/14/2020 11:33 AM CDT Oxygen Saturation 100% 03/14/2020 11:33 AM CDT Inhaled Oxygen Concentration - - Weight 72.8 kg (160 lb 7.9 oz) 03/14/2020 11:33 AM CDT Height - - Body Mass Index 28.43 03/04/2020 11:13 AM CDT documented in this encounter Medications at Time [...] daily. 07/29/2020 documented as of this encounter Progress Notes * Cecilia Healy - 03/14/2020 11:59 PM CDTEncounter addended by: Cecilia Healy on: 03/17/2020 11:09 AM Actions taken: Charge Capture section accepted * Socorro Kenyon RN - 03/14/2020 11:36 AM CDT PATIENT ASSESSMENT: Admitted via: Ambulatory Admitted from: Home Planned procedure: Venofer Patient information verified by SOCORRO KENYON RN. [...] st Contact Info) Description 09/25/2024 11:30 AM SOLAR INSTALLATION FOREMAN Appointment [facility] [address] [place] [address] Roberta Alex MD [address] [place] [address] 09/25/2024 11:40 AM SOLAR INSTALLATION FOREMAN Office Visit [facility] [address] [place] [address] Roberta Alex MD [address] [place] [address] documented as of this encounter Visit Diagnoses Diagnosis Iron deficiency anemia secondary to inadequate dietary iron intake- Primary Other dietary vitamin B12 deficiency anemia documented in this encounter Administered Medications Inactive Administered Medications - up to 3 most recent administrations Medication Order MAR Action Action Date Dose Rate Site cyanocobalamin (B-12) injection 1,000 mcg 1,000 mcg, Intramuscular, Weekly, 2 doses, First dose on Tue03/14/20 at 1145, Last dose on Tue03/21/20 at 0900Indications:Iron deficiency anemia secondary to inadequate dietary iron intake,Other dietary vitamin B12 deficiency anemia Given 03/14/2020 12:58 PM CDT 1,000 mcg Left Deltoid iron sucrose (VENOFER) 200 mg in sodium chloride 0.9 % 100 mL IVPB 200 mg, Intravenous, at 400 mL/hr, Once, 1 dose, On Tue03/14/20 at 1145Indications:Iron deficiency anemia secondary to inadequate dietary iron intake New Bag 03/14/2020 11:41 AM CDT 200 mg 400 mL/hr documented in this encounter Care Teams Chief Nurse Executive Relationship Specialty Start Date End Date Alejandro Blevins MD PCP - General FAMILY PRACTICE 12/10/19 documented as of this encounter
--- OUTSIDE RECORDS SUMMARY | 2024-07-11 05:44 | XMS_ITS | Encounter Summary ---
Author Organization [facility] Address [address] [place] [address]. [place], [place] [address] [place] [address] Care Team Providers Care Rn Dialysis Name Role Phone Alejandro Blevins MD Primary Care Provider Encounter Details Date Type Department Care Team (Latest Contact Info) Description 03/14/2020 Travel Social History Tobacco Use Types Packs/Day Years Used Date Smoking Tobacco: Every Day Smokeless Tobacco: Never Comments Yes Sex and Gender Information Value Date Recorded Sex Assigned at Not on file Legal Sex Female 11:30 PM HOME CARE MANAGER RN Gender Identity Female 11/10/2021 3:09 PM [...] Info) Description 09/25/2024 11:30 AM HOME CARE MANAGER RN Appointment [facility] [address] [place] [address] Roberta Alex MD [address] [place] [address] 09/25/2024 11:40 AM HOME CARE MANAGER RN Office Visit [facility] [address] [place] [address] Roberta Alex MD [address] [place] [address] documented as of this encounter Visit Diagnoses Not on filedocumented in this encounter Care Teams Rn Dialysis Relationship Specialty Start Date End Date Alejandro Blevins MD PCP - General FAMILY PRACTICE 12/10/19 documented as of this encounter
--- OUTSIDE RECORDS SUMMARY | 2024-07-11 05:44 | XMS_ITS | Encounter Summary ---
Author Organization [facility] Address [facility] [address] [place] [address] Care Team Providers Care Import Coordination And Production Head Name Role Phone Unavailable Primary Care Provider Unavailabl e Encounter Details Date Type Department Care Team (Late Contact Info) Description 10/28/2012 Abstract [facility] [place] [address] Kamron Yadav MD [address] [place] [address] Social History Tobacco Use Types Packs/Day Years Used Date Smoking Tobacco: Never Assessed Comments Unknown Sex and Gender Information Value Date Recorded Sex Assigned at Not on file Legal Sex Female 11:30 PM PROJECT MANAGEMENT CONSULTANT Gender Identity Female 11/10/2021 3:09 PM CDT Sexual Orientation Straight 11/10/2021 3: 09 PM CDT documented as of this encounter Plan of Treatment Upcoming Encounters Date Type Department Care Team (Late Contact Info) Description 09/25/2024 11:30 AM PROJECT MANAGEMENT CONSULTANT Appointment [facility] [address] [address] Roberta Alex MD [address] [place] [address] 09/25/2024 11:40 AM PROJECT MANAGEMENT CONSULTANT Office Visit [facility] [facility] [address] Roberta Alex MD [address] [place] [address] documented as of this encounter Visit Diagnoses Diagnosis Disorder of teeth and supporting structures Unspecified disorder of the teeth and supporting structures documented in this encounter
--- OUTSIDE RECORDS SUMMARY | 2024-07-11 05:44 | XMS_ITS | Encounter Summary ---
Author Organization [facility] Address [facility] [place] [address] [place] [address] Care Team Providers Care In Store Marketing Associate Name Role Phone Unavailable Primary Care Provider Unavailabl e Encounter Details Date Type Department Care Team (Late Contact Info) Description 02/16/2011 Abstract [facility] [place] [address] Cirilo Schultz MD [address] [place] [phone] Social History Tobacco Use Types Packs/Day Years Used Date Smoking Tobacco: Never Assessed Comments Unknown Sex and Gender Information Value Date Recorded Sex Assigned at Not on file Legal Sex Female 11:30 PM PARTS ROOM ASSISTANT Gender Identity Female 11/10/2021 3:09 PM CDT Sexual Orientation Straight 11/10/2021 3: 09 PM CDT documented as of this encounter Plan of Treatment Upcoming Encounters Date Type Department Care Team (Late Contact Info) Description 09/25/2024 11:30 AM PARTS ROOM ASSISTANT Appointment [facility] [address] [place] [address] Roberta Alex MD [address] [place] [address] 09/25/2024 11:40 AM PARTS ROOM ASSISTANT Office Visit [facility] [address] [place] [address] Roberta Alex MD [address] [place] [address] documented as of this encounter Visit Diagnoses Diagnosis Hyperpotassemia documented in this encounter
--- OUTSIDE RECORDS SUMMARY | 2024-07-11 05:44 | XMS_ITS | Encounter Summary ---
Author Organization [facility] Address [facility] [place] [place] [address] [place] [address] Care Team Providers Care Agricultural Equipment Sales Engineer Name Role Phone Unavailable Primary Care Provider Unavailabl e Encounter Details Date Type Department Care Team (Late st Contact Info) Description 11/17/2008 Abstract [facility] [address] [place] [address] Social History Tobacco Use Types Packs/Day Years Used Date Smoking Tobacco: Never Assessed Comments Unknown Sex and Gender Information Value Date Recorded Sex Assigned at Not on file Legal Sex Female 11:30 PM COMPETENCY EVALUATED NURSE AIDE Gender Identity Female 11/10/2021 3:09 PM CDT Sexual Orientation Straight 11/10/2021 3: 09 PM CDT documented as of this encounter Plan of Treatment Upcoming Encounters Date Type Department Care Team (Late st Contact Info) Description 09/25/2024 11:30 AM COMPETENCY EVALUATED NURSE AIDE Appointment [facility] [address] [place] [address] Roberta Alex MD [address] [place] [address] 09/25/2024 11:40 AM COMPETENCY EVALUATED NURSE AIDE Office Visit [facility] [address] [place] [address] Roberta Alex MD [address] [place] [address] documented as of this encounter Visit Diagnoses Diagnosis Head injury Head injury, unspecified documented in this encounter
--- OUTSIDE RECORDS SUMMARY | 2024-07-11 05:44 | XMS_ITS | Encounter Summary ---
Author Organization [facility] Address [facility] [place] [address] [place] [address] Care Team Providers Care Stiff Neck Loader Name Role Phone Unavailable Primary Care Provider Unavailabl e Encounter Details Date Type Department Care Team (Late Contact Info) Description 12/15/2011 Abstract [place] [address] [place] [address] Cirilo Schultz MD [address] [place] [phone] Social History Tobacco Use Types Packs/Day Years Used Date Smoking Tobacco: Never Assessed Comments Unknown Sex and Gender Information Value Date Recorded Sex Assigned at Not on file Legal Sex Female 11:30 PM AUTO SERVICE WRITER Gender Identity Female 11/10/2021 3:09 PM CDT Sexual Orientation Straight 11/10/2021 3: 09 PM CDT documented as of this encounter Plan of Treatment Upcoming Encounters Date Type Department Care Team (Late Contact Info) Description 09/25/2024 11:30 AM AUTO SERVICE WRITER Appointment [facility] [address] [place] [address] Roberta Alex MD [address] [place] [address] 09/25/2024 11:40 AM AUTO SERVICE WRITER Office Visit [facility] [address] [place] [address] Roberta Alex MD [address] [place] [address] documented as of this encounter Visit Diagnoses Diagnosis Other specified circulatory system disorders documented in this encounter
--- OUTSIDE RECORDS SUMMARY | 2024-07-11 05:44 | XMS_ITS | Encounter Summary ---
Author Organization [facility] Address [address] [place] [address]. [place], [place] [address] [place] [address] Care Team Providers Care Aquaculture Farm Manager Name Role Phone Unavailable Primary Care Provider Unavailabl e Encounter Details Date Type Department Care Team (Late st Contact Info) Description 05/30/2008 Abstract [facility] [address] [place] [address] Heriberto Elam, Social History Tobacco Use Types Packs/Day Years Used Date Smoking Tobacco: Never Assessed Comments Unknown Sex and Gender Information Value Date Recorded Sex Assigned at Not on file Legal Sex Female 11:30 PM SUCCESSFACTORS CONSULTANT Gender Identity Female 11/10/2021 3:09 PM CDT Sexual Orientation Straight 11/10/2021 3: 09 PM CDT documented as of this encounter Plan of Treatment Upcoming Encounters Date Type Department Care Team (Late st Contact Info) Description 09/25/2024 11:30 AM SUCCESSFACTORS CONSULTANT Appointment [facility] [address] [place] [address] Roberta Alex MD [address] [place] [address] 09/25/2024 11:40 AM SUCCESSFACTORS CONSULTANT Office Visit [facility] [address] [place] [address] Roberta Alex MD [address] [place] [address] documented as of this encounter Visit Diagnoses Not on filedocumented in this encounter
--- OUTSIDE RECORDS SUMMARY | 2024-07-11 05:44 | XMS_ITS | Encounter Summary ---
Author Organization [facility] Address [address] [place] [address]. [place] [address] [place] [address] Care Team Providers Care Pattern Marker Name Role Phone Alejandro Blevins MD Primary Care Provider [phone] Encounter Details Date Type Department Care Team (Late st Contact Info) Description 10/08/2017 Abstract [facility] [address] [place] [address] , Generic [facility] Social History Tobacco Use Types Packs/Day Years Used Date Smoking Tobacco: Never Assessed Comments Unknown Sex and Gender Information Value Date Recorded Sex Assigned at Not on file Legal Sex Female 11:30 PM SERVICE GREETER Gender Identity Female 11/10/2021 3:09 PM CDT Sexual Orientation Straight 11/10/2021 3: 09 PM CDT documented as of this encounter Plan of Treatment Upcoming Encounters Date Type Department Care Team (Late st Contact Info) Description 09/25/2024 11:30 AM SERVICE GREETER Appointment [facility] [place] [address] Roberta Alex MD [address] [place] [address] 09/25/2024 11:40 AM SERVICE GREETER Office Visit [facility] [place] [address] Roberta Alex MD [address] [place] [address] documented as of this encounter Visit Diagnoses Not on filedocumented in this encounter Additional Health Concerns Infection Onset Date Last Indicated Resolved Time COVID-19 Rule Out 07/30/2020 07/30/2020 07/30/2020 4:31 PM SERVICE GREETER 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
--- OUTSIDE RECORDS SUMMARY | 2024-07-11 05:44 | XMS_ITS | Encounter Summary ---
Author Organization [facility] Address [facility] access hospital6 [place] [address] [place] [address] Care Team Providers Care Nail Specialist Name Role Phone Unavailable Primary Care Provider Unavailabl e Encounter Details Date Type Department Care Team (Late Contact Info) Description 05/22/2010 Abstract [facility] [place] [address] Kamron Yadav MD [address] [place] [address] Social History Tobacco Use Types Packs/Day Years Used Date Smoking Tobacco: Never Assessed Comments Unknown Sex and Gender Information Value Date Recorded Sex Assigned at Not on file Legal Sex Female 11:30 PM SYSTEMS TECHNOLOGIST Gender Identity Female 11/10/2021 3:09 PM CDT Sexual Orientation Straight 11/10/2021 3: 09 PM CDT documented as of this encounter Plan of Treatment Upcoming Encounters Date Type Department Care Team (Late Contact Info) Description 09/25/2024 11:30 AM SYSTEMS TECHNOLOGIST Appointment [facility] [address] [place] [address] Roberta Alex MD [address] [place] [address] 09/25/2024 11:40 AM SYSTEMS TECHNOLOGIST Office Visit [facility] [place] [address] Roberta Alex MD [address] [place] [address] documented as of this encounter Visit Diagnoses Diagnosis Headache documented in this encounter
--- OUTSIDE RECORDS SUMMARY | 2024-07-11 05:44 | XMS_ITS | Encounter Summary ---
Author Organization [facility] Address [address] [place] [address]. [place] [address] [place] [address] Care Team Providers Care Power Screwdriver Operator Name Role Phone Alejandro Blevins MD Primary Care Provider [phone] Encounter Details Date Type Department Care Team (Latest Contact Info) Description 12/18/2019 1:51 PM CDT - 12/18/2019 11:59 PM CDT Hospital Encounter [address] [place] [address] Roberta Alex MD [address] [place] [address] Discharge Disposition: Home or Self Care (Routine Discharge) Social History Tobacco Use Types Packs/Day Years Used Date Smoking Tobacco: Never Assessed Comments Yes Sex and Gender Information Value Date Recorded Sex Assigned at Not on file Legal Sex Female 11:30 PM MISSILE PAD MECHANIC Gender Identity Female 11/10/2021 3:09 PM CDT Sexual Orientation Straight 11/10/2021 3: 09 PM CDT COVID-19 Exposure Response Date Recorded In the last month, have you been in contact with someone who was confirmed or suspected to have Coronavirus / COVID-19? No / Unsure 12/18/2019 12:55 PM CDT documented as of this encounter Medications at Time of Discharge ferrous sulfate, 65 mg elemental, 325 (65 FE) MG tablet Take 325 mg by mouth daily. 12/09/2019 07/29/2020 folic acid 1 MG tablet Take 1 mg by mouth daily. 12/09/2019 07/08/2020 nitrofurantoin, macrocrystal-mono hydrate, 100 MG capsule Take 100 mg by mouth. 12/09/2019 12/28/2019 vitamin B-12 1000 MCG tablet Take 1,000 mcg by mouth daily. 12/10/2019 12/28/2019 documented as of this encounter Plan of Treatment Upcoming Encounters Date Type Department Care Team (Late st Contact Info) Description 09/25/2024 11:30 AM MISSILE PAD MECHANIC Appointment [facility] [address] [place] [address] Roberta Alex MD [address] [place] [address] 09/25/2024 11:40 AM MISSILE PAD MECHANIC Office Visit [facility] [address] [place] [address] Roberta Alex MD [address] [place], [place] [address] documented as of this encounter Procedures Procedure Name Priority Date/Time Associated Diagnosis Comments VITAMIN B-12 Routine 12/18/2019 2:06 PM CDT Anemia, unspecified type CBC W/DIFF AUTOMATED Routine 12/18/2019 2:06 PM CDT Anemia, unspecified type FERRITIN Routine 12/18/2019 2:06 PM CDT Anemia, unspecified type documented in this encounter Results * VITAMIN B-12 (12/18/2019 2:06 PM CDT) VITAMIN B12 S/P/B 318 193 - 986 PG/ML 12/19/2019 4:18 PM CDT [facility] 12/18/2019 2:06 PM CDT Roberta Alex MD LABORATORY Final Result [facility] [address] [place] [address], [id number] * FERRITIN (12/18/2019 2:06 PM CDT) FERRITIN 51.6 8 - 252 NG/ML 12/18/2019 2:47 PM CDT [facility] 12/18/2019 2:06 PM CDT Roberta Alex MD LABORATORY Final Result [facility] [address] [place] [address], * (ABNORMAL) CBC W/DIFF AUTOMATED (12/18/2019 2:06 PM CDT) Pathologist [facility] WBC 13.0(H) 4.5 - 10.8 x10'3/uL 12/18/2019 2:33 PM CDT [facility] RBC 4.26 4.10 - 5.40 x10'6/uL 12/18/2019 2:33 PM CDT [facility] HGB 9.1(L) 12.0 - 16.0 G/DL 12/18/2019 2:33 PM CDT [facility] HCT 30.7(L) 36.0 - 47.0 % 12/18/2019 2:33 PM CDT [facility] MCV 72.1(L) 78.0 - 100.0 FL 12/18/2019 2:33 PM CDT [facility] MCH 21.4(L) 27.0 - 31.0 PG 12/18/2019 2:33 PM CDT [facility] MCHC 29.6(L) 33.0 - 36.0 G/DL 12/18/2019 2:33 PM CDT [facility] RDW 29.3(H) 11.5 - 14.5 % 12/18/2019 2:33 PM CDT [facility] PLT 51(L) 150 - 350 x10'3/uL 12/18/2019 2:33 PM CDT [facility] MPV RESULTS NOT AVAILABLE 7.4 - 10.4 FL 12/18/2019 2:33 PM CDT [facility] DIFFERENTIAL COMMENT NORMAL REFERENCE RANGE NOT ESTABLISHED FOR THE PROPORTIONAL LEUKOCYTE DIFFERENTIAL. 12/18/2019 2:33 PM CDT [facility] SEG NEUTROPHILS 77.1 % 0 2:37 PM CDT [facility] LYMPHOCYTES 14.5 % 12/18/2019 2:37 PM CDT [facility] MONOCYTES 4.4 % 12/18/2019 2:37 PM CDT [facility] EOSINOPHILS 2.4 % 12/18/2019 2:37 PM CDT [facility] BASOPHILS 0.4 % 12/18/2019 2:37 PM CDT [facility] IMMATURE GRANS % 1.2 % 12/18/19 20 2:37 PM CDT [facility] NRBC 0.0 % 12/18/2019 2:37 PM CDT [facility] ABS. NEUTROPHILS 10.02(H) 1.60 - 8.30 x10'3/uL 12/18/2019 2:37 PM CDT [facility] ABS. LYMPHOCYTES 1.89 0.80 - 4.70 x10'3/uL 12/18/2019 2:37 PM CDT [facility] ABS. MONOCYTES 0.57 0.00 - 1.50 x10'3/uL 12/18/2019 2:37 PM CDT [facility] ABS. EOSINOPHILS 0.31 0.00 - 0.40 x10'3/uL 12/18/2019 2:37 PM CDT [facility] ABS. BASOPHILS 0.05 0.00 - 0.20 x10'3/uL 12/18/2019 2:37 PM CDT [facility] ABS. IMMATURE GRANULOCYTES 0.16(H) 0.00 - 0.03 x10'3/uL 12/18/2019 2:37 PM CDT [facility] ABS. NUCLEATED RBC'S 0.00 0.00 x10'3/uL 12/18/2019 2:37 PM CDT [facility] PLT MORPH. DECREASED 12/18/2019 2:37 PM CDT [facility] RBC MORPHOLOGY 2+ 12/18/2019 2:37 PM CDT [facility] Comment: MICROCYTES 1+ MACROCYTES 1+ HYPOCHROMASIA 1+ POIKILOCYTOSIS 3+ ANISOCYTOSIS 12/18/2019 2:06 PM CDT Roberta Alex MD LABORATORY Final Result [facility] [address] [place] [address], documented in this encounter Visit Diagnoses Diagnosis Anemia, unspecified type documented in this encounter Care Teams Power Screwdriver Operator Relationship Specialty Start Date End Date Alejandro Blevins MD PCP - General FAMILY PRACTICE 12/10/19 documented as of this encounter
--- OUTSIDE RECORDS SUMMARY | 2024-07-11 05:44 | XMS_ITS | Encounter Summary ---
Author Organization [facility] Address [facility] [place] [address] [place] [address] Care Team Providers Care Manager Games Name Role Phone Alejandro Blevins MD Primary Care Provider [phone] Encounter Details Date Type Department Care Team (Latest Contact Info) Description 02/05/2020 11:21 AM CDT - 02/05/2020 11:59 PM CDT Hospital Encounter [address] [place] [address] Roberta Alex MD [address] [place], [place] [address] Discharge Disposition: Home or Self Care (Routine Discharge) Social History Tobacco Use Types Packs/Day Years Used Date Smoking Tobacco: Every Day Smokeless Tobacco: Never Comments Yes Sex and Gender Information Value Date Recorded Sex Assigned at Not on file Legal Sex Female 11:30 PM JUICE WEIGHER Gender Identity Female 11/10/2021 3:09 PM CDT Sexual Orientation Straight 11/10/2021 3: 09 PM CDT COVID-19 Exposure Response Date Recorded In the last month, have you been in contact with someone who was confirmed or suspected to have Coronavirus / COVID-19? No / Unsure 02/05/2020 11:20 AM CDT documented as of this encounter [...] 1 tablet by mouth daily. 01/23/2020 07/29/2020 documented as of this encounter Plan of Treatment Upcoming Encounters Date Type Department Care Team (Late st Contact Info) Description 09/25/2024 11:30 AM JUICE WEIGHER Appointment [facility] [address] [place] [address] Roberta Alex MD [address] [place] [address] 09/25/2024 11:40 AM JUICE WEIGHER Office Visit [facility] [address] [place] [address] Roberta Alex MD [address] [place] [address] documented as of this encounter Procedures Procedure Name Priority Date/Time Associated Diagnosis Comments IRON SAT PANEL (IRON,IBC,%SAT) Routine 02/05/2020 11:40 AM CDT Thrombocytopenia affecting ([facility] HHS/HCC) CBC W/DIFF AUTOMATED Routine 02/05/2020 11:40 AM CDT Thrombocytopenia affecting ([facility]/HCC HHS/HCC) FERRITIN Routine 02/05/2020 11:40 AM CDT Thrombocytopenia affecting (CMS/HCC HHS/HCC) documented in this encounter Results * (ABNORMAL) FERRITIN (02/05/2020 11:40 AM CDT) FERRITIN 7.8(L) 8 - 252 NG/ML 02/05/2020 12:14 PM CDT [facility] 02/05/2020 11:4 0 AM CDT Roberta Alex MD LABORATORY Final Result Performing Organization Address City/[facility]/ZIP Co de Phone Number [facility] [address] [place] [address], * (ABNORMAL) IRON SATURATION PNL (FE/TIBC/SAT) (02/05/2020 11:40 AM CDT) IRON 29(L) 50 - 170 MCG/DL 02/05/2020 12:18 PM CDT [facility] IRON BINDING CAPACITY 623(H) 250 - 450 MCG/DL 02/05/2020 12:18 PM CDT [facility] IRON SATURATION 5 % 0 12:18 PM CDT [facility] Comment:REFERENCE RANGE NOT ESTABLISHED 02/05/2020 11:4 0 AM CDT Roberta Alex MD LABORATORY Final Result Performing Organization Address [facility]/ZIP Co de Phone Number [facility] [address] [place] [address], * (ABNORMAL) CBC W/DIFF AUTOMATED (02/05/2020 11:40 AM CDT) WBC 11.3(H) 4.5 - 10.8 x10'3/uL 02/05/2020 11:54 AM CDT [facility] RBC 3.88(L) 4.10 - 5.40 x10'6/uL 02/05/2020 11:54 AM CDT [facility] HGB 9.7(L) 12.0 - 16.0 G/DL 02/05/2020 11:54 AM CDT [facility] HCT 31.9(L) 36.0 - 47.0 % 02/05/2020 11:54 AM CDT [facility] MCV 82.2 78.0 - 100.0 FL 02/05/2020 11:54 AM CDT [facility] MCH 25.0(L) 27.0 - 31.0 PG 02/05/2020 11:54 AM CDT [facility] MCHC 30.4(L) 33.0 - 36.0 G/DL 02/05/2020 11:54 AM CDT [facility] RDW 25.1(H) 11.5 - 14.5 % 02/05/2020 11:54 AM CDT [facility] PLT 42(L) 150 - 350 x10'3/uL 02/05/2020 11:54 AM CDT [facility] MPV RESULTS NOT AVAILABLE 7.4 - 10.4 FL 02/05/2020 11:54 AM CDT [facility] DIFFERENTIAL COMMENT NORMAL REFERENCE RANGE NOT ESTABLISHED FOR THE PROPORTIONAL LEUKOCYTE DIFFERENTIAL. 02/05/2020 11:54 AM CDT [facility] SEG NEUTROPHILS 74.2 % 0 12:[address] [facility] LYMPHOCYTES 15.2 % 02/05/2020 12:[address] [facility] MONOCYTES 5.6 % 02/05/2020 12:[address] [facility] EOSINOPHILS 1.9 % 02/05/2020 12:[address] [facility] BASOPHILS 0.4 % 02/05/2020 12:[address] PM [address] [facility] IMMATURE GRANS % 2.7 % 02/05/20 20 12:[address] [facility] NRBC 0.0 % 02/05/2020 12:[address] PM [address] [facility] ABS. NEUTROPHILS 8.38(H) 1.60 - 8.30 x10'3/uL 02/05/2020 12:[address] [facility] ABS. LYMPHOCYTES 1.72 0.80 - 4.70 x10'3/uL 02/05/2020 12:[address] [facility] ABS. MONOCYTES 0.63 0.00 - 1.50 x10'3/uL 02/05/2020 12:[address] PM [address] [facility] ABS. EOSINOPHILS 0.21 0.00 - 0.40 x10'3/uL 02/05/2020 12:[address] [facility] ABS. BASOPHILS 0.05 0.00 - 0.20 x10'3/uL 02/05/2020 12:[address] [facility] ABS. IMMATURE GRANULOCYTES 0.31(H) 0.00 - 0.03 x10'3/uL 02/05/2020 12:[address] [facility] ABS. NUCLEATED RBC'S 0.00 0.00 x10'3/uL 02/05/2020 12:[address] [facility] PLT MORPH. DECREASED 02/05/2020 12:[address] PM [address] [facility] RBC MORPHOLOGY 2+ 02/05/2020 12:[address] PM [address] [facility] Comment:ANISOCYTOSIS 02/05/2020 11:4 0 AM CDT Roberta Alex MD LABORATORY Final Result [facility] [address] [place] [address], documented in this encounter Visit Diagnoses Diagnosis Thrombocytopenia affecting (CMS/HCC HHS/HCC) documented in this encounter Care Teams Manager Games Relationship Specialty Start Date End Date Alejandro Blevins MD PCP - General FAMILY PRACTICE 12/10/19 documented as of this encounter
--- OUTSIDE RECORDS SUMMARY | 2024-07-11 05:44 | XMS_ITS | Encounter Summary ---
Author Organization [facility] Address [address] [place] [address]. [place] [address] [place] [address] Care Team Providers Care Skin Therapist Name Role Phone Alejandro Blevins MD Primary Care Provider [phone] Reason for Visit * Reason Comments Follow Up Lab Results * Treatment/Therapy Plan Authorization (Routine) - Closed Specialty Diagnoses / Procedures Referred By Contac t Referred To Contact Diagnoses Iron deficiency anemia secondary to inadequate dietary iron intake Procedures IRON SUCROSE INJ, 20 MG Roberta Alex MD [address] [place] [address] Phone: tel: fax: [facility] [place] [address] Phone: tel: Referral ID Status Reason Start Date Expiration Date Visits Re quested Visits Authorized [id number] Closed 12/19/2019 04/23/2020 1 3 Encounter Details Date Type Department Care Team (Late st Contact Info) Description 02/05/2020 2:20 PM CDT Office Visit [facility] [place] [address] Roberta Alex MD [address] [place], [place] [id number] Follow Up; Lab Results Social History Tobacco Use Types Packs/Day Years Used Date Smoking Tobacco: Every Day Smokeless Tobacco: Never Tobacco Cessation:Ready to Q uit: Yes; Counseling Given: Yes Comments Yes Sex and Gender Information Value Date Recorded Sex Assigned at Not on file Legal Sex Female 11:30 PM ARBOR PRESS OPERATOR Gender Identity Female 11/10/2021 3:09 PM [...] Sign Reading Time Taken Comments Blood Pressure 115/59 02/05/2020 11:47 AM CDT Pulse 97 02/05/2020 11:47 AM CDT Temperature 36.8 ??C (98.2 ??F) 02/05/2020 11:47 AM C DT Respiratory Rate 20 02/05/2020 11:47 AM CDT Oxygen Saturation - - Inhaled Oxygen Concentration - - Weight 68.6 kg (151 lb 3.2 oz) 02/05/2020 11:47 AM CDT Height 160 cm (5' 3 ) 02/05/2020 11:47 AM CDT Body Mass Index 26.78 02/05/2020 11:47 AM CDT documented in this encounter Progress Notes * Roberta Alex MD - 02/05/2020 2:20 PM CDT Hematology/Oncology Note Identifying Data Hillary Smalls is a 29-year-old female Reason for Visit: Follow Up and Lab Results History of Present Illness: Hillary Smalls is a 29-year-old female with history of chronic hepatitis C, chronic thrombocytopenia, history of IVDU, currently gestational with twin referred for management of iron deficiency, B12 deficiency on 12/18/2019. Initially she presented with severe fatigue, SOB and hospitalized at [facility] with severe anemia and was also noted to be at 20 weeks withtwins. Pertinent labs with Hgb of 5.2 g/dL, MCV 64.6, platelets 59, ferritin 2/T sat 3, vitamin [id number]. Hemolytic work-up negative. Hemoglobin electrophoresis normal. Hypoproliferative reticulocyte count. MARQUITA negative. Toxicology screen positive for amphetamines. Received 2 units of PRBC, B12 injec tion x1, IV Venofer 300 mg x2. She had no care prior to admission. She denied any blood loss in stool, urine. She denied any worsening fatigue, shortness of breath, palpitations. Reports history of severe iron deficiency in the past. She reports also following with [facility] school of medicine ext js developer Dr. Dick Bonilla 5 years ago for thrombocytopenia and iron deficiency. Bone marrow biopsyat that time was normal per patient. Denied any family history of hemoglobinopathies, malignancies Today she is here for follow up. Received IV Venofer in 12/2019 with improvement in fatigue levels. She meets with her Ob-quantitative researcher Dr Machelle Costello closely- plan for IOL in Mid April, avoid if possible with high risk of neuraxial anesthesia given thrombocytopenia. Denied any fevers. No bleeding. No worsening SOB. Continues to smoke- daily- trying to cut back but not quit completely. Patient not compliant with medications- she was on a vacation in [place]- ran out of iron and MVT anddid not take it for ~10days or so. ROS General: No symptoms Skin: No rash Head: No symptoms Nose/ [...] resource strain: Not on file ??? Food insecurity: Worry: Not on file Inability: Not on file ??? Transportation needs: Medical: Not on file Non-medical: Not on file Tobacco Use ??? Smoking status: Current Every Day Smoker ??? Smokeless tobacco: Never Used Substance and Sexual Activity ??? Alcohol use: Not on file ??? Drug use: Not on file ??? Sexual activity: Not on file Lifestyle ??? Physical activity: Days per week: Not on file Minutes per session: Not on file ??? Stress: Not on file Relationships ??? Social connections: Talks on phone: Not on file Gets together: Not on file Attends buddhism service: Not on file Active member of club or organization: Not on file Attends meetings of clubs or organizations: Not on file Relationship status: Not on file ??? Intimate partner violence: Fear of current or ex partner: Not on file Emotionally abused: Not on file Physically abused: Not on file Forced sexual activity: Not on file Other Topics Concern ??? Not on file Social History Narrative ??? Not on file History reviewed. No pertinent surgical history. Current Outpatient Medications Medication Sig Dispense Refill ??? zxonoxr-pltxiuvfaqbvj-jkdizylg 250-250-65 MG tablet Take 1 tablet by mouth every 6 (six) hours as needed for Pain. ??? ferrous sulfate, 65 mg elemental, 325 (65 FE) MG tablet Take 325 mg by mouth daily. ??? folic acid 1 MG tablet Take 1 mg by mouth daily. No current facility-administered medications [...] vitamin B12 deficiency anemia Vitals Height: 5' 3 (1.6 m) , Weight: 68.6 kg (151 lb 3.2 oz) , BSA (Calculated - sq m): 1.75 sq meters , BP: 115/59 , Temp: 98.2 ??F (36.8 ??C) , Pulse: 97 , Resp: 20 Physical Exam Constitutional General appearance: No acute distress, well appearing and well nourished. Pale conjunctiva Head and Face Head and face: Normal. [...] ABS. NEUTROPHILS Date Value Ref Range Status 02/05/2020 8.38 (H) 1.60 - 8.30 x10'3/uL Final WBC Date Value Ref Range Status 02/05/2020 11.3 (H) 4.5 - 10.8 x10'3/uL Final HGB Date Value Ref Range Status 02/05/2020 9.7 (L) 12.0 - 16.0 G/DL Final HCT Date Value Ref Range Status 02/05/2020 31.9 (L) 36.0 - 47.0 % Final PLT Date Value Ref Range Status 02/05/2020 42 (L) 150 - 350 x10'3/uL Final Assessment and Plan 1. Severe iron deficiency anemia: Acute on chronic. Likely exacerbated due to nutritional deficiencies, high iron requirements from twin . Poor care. S/P IV Venofer ~800mg in 12/2019. Repeat ferritin remains low- noted after clinic visit. Called and left a message for patient for IV Venofer x 4 doses, mother answered and will convey the message. ?? 2. Vitamin B12 deficiency: IF-AB negative. S/P B12 injections on a weekly basis and then continue on oral high-dose 1000MCG daily. Pt not compliant with medications. 3. Folate def: Poor care. Twin gestation. On vitamins and FA supplements. ?? 4. Thrombocytopenia: History of chronic HCV. Reports BM biopsy 5 years ago normal. Clinically no symptoms of bleeding. US spleen normal. We discussed about various etiologies, management during briefly. Encouraged to be compliant with blood work, close follow up as she nears her term . If vaginal delivery planned, then plt count> 30K should be okay. I would recommend platelet transfusions and IVIG or Dexamethasone close to her IOL to boost platelet counts if needed for safe delivery/ C- sections ?? 5. Hx of IVDA, recent methamphetamine use, current smoker: Strongly advised on cessation. ?? 6. Hep C infection: HCV RNA strongly positive. US of liver normal. Needs to follow up with Hepatology closely 6. Staclot LA test negative, Anti B2 GP IGG/IGM negative but Anti - Cardiolipin IGM positive. Less likely antiphophopholipid syndrome. Also no indication for any anticoagulation at this time given thrombocytopenia. She reports having Rheum consult pending. Time Spent: Approximately 25 minutes was spent in direct patient consultation and the majority of that time (>50%) was spent on counseling and coordination of care. Roberta Alex MD CC: Alejandro Blevins MD documented in this encounter Plan of Treatment Upcoming Encounters Date Type Department Care Team (Late st Contact Info) Description 09/25/2024 11:30 AM ARBOR PRESS OPERATOR Appointment [facility] [address] [place] [address] Roberta Alex MD [address] [place] [address] 09/25/2024 11:40 AM ARBOR PRESS OPERATOR Office Visit [facility] [place] [address] Roberta Alex MD [address] [place] [address] documented as of this encounter Visit Diagnoses Diagnosis Iron deficiency anemia secondary to inadequate dietary iron intake- Primary Other dietary vitamin B12 deficiency anemia Thrombocytopenia affecting ([facility]) documented in this encounter Care Teams Skin Therapist Relationship Specialty Start Date End Date Alejandro Blevins MD PCP - General FAMILY PRACTICE 12/10/19 documented as of this encounter
--- OUTSIDE RECORDS SUMMARY | 2024-07-11 05:44 | XMS_ITS | Encounter Summary ---
Author Organization [facility] Address [address] [place] [address]. [place] [address] [place] [address] Care Team Providers Care Material Reprocessing Associate Name Role Phone Unavailable Primary Care Provider Unavailabl e Encounter Details Date Type Department Care Team (Late st Contact Info) Description 07/21/2009 Abstract [facility] [address] [place] [address] Social History Tobacco Use Types Packs/Day Years Used Date Smoking Tobacco: Never Assessed Comments Unknown Sex and Gender Information Value Date Recorded Sex Assigned at Not on file Legal Sex Female 11:30 PM DATA CENTER TECHNICIAN Gender Identity Female 11/10/2021 3:09 PM CDT Sexual Orientation Straight 11/10/2021 3: 09 PM CDT documented as of this encounter Plan of Treatment Upcoming Encounters Date Type Department Care Team (Late st Contact Info) Description 09/25/2024 11:30 AM DATA CENTER TECHNICIAN Appointment [facility] [address] [place] [address] Roberta Alex MD [address] [place] [address] 09/25/2024 11:40 AM DATA CENTER TECHNICIAN Office Visit [facility] [address] [place] [address] Roberta Alex MD [address] [place] [address] documented as of this encounter Visit Diagnoses Diagnosis Disorder of teeth and supporting structures Unspecified disorder of the teeth and supporting structures documented in this encounter
--- OUTSIDE RECORDS SUMMARY | 2024-07-11 05:44 | XMS_ITS | Encounter Summary ---
Author Organization [facility] Address [address] [place] [address]. [place] [address] [place] [address] Care Team Providers Care Fire Manager Name Role Phone Alejandro Blevins MD Primary Care Provider [phone] Encounter Details Date Type Department Care Team (Latest Contact Info) Description 12/28/2019 Travel Social History Tobacco Use Types Packs/Day Years Used Date Smoking Tobacco: Never Assessed Comments Yes Sex and Gender Information Value Date Recorded Sex Assigned at Not on file Legal Sex Female 11:30 PM BANQUET CHEF Gender Identity Female 11/10/2021 3:09 PM CDT Sexual Orientation Straight 11/10/2021 3: 09 PM CDT COVID-19 Exposure Response Date Recorded In the last month, have you been in contact with someone who was confirmed or suspected to have Coronavirus / COVID-19? No / Unsure 12/28/2019 10:14 AM CDT documented as of this encounter Plan of Treatment Upcoming Encounters Date Type Department Care Team (Late st Contact Info) Description 09/25/2024 11:30 AM BANQUET CHEF Appointment [facility] [address] [place] [address] Roberta Alex MD [address] [place] [address] 09/25/2024 11:40 AM BANQUET CHEF Office Visit [facility] [address] [place] [address] Roberta Alex MD [address] [place] [address] documented as of this encounter Visit Diagnoses Not on filedocumented in this encounter Care Teams Fire Manager Relationship Specialty Start Date End Date Alejandro Blevins MD PCP - General FAMILY PRACTICE 12/10/19 documented as of this encounter
--- OUTSIDE RECORDS SUMMARY | 2024-07-11 05:44 | XMS_ITS | Encounter Summary ---
Author Organization [facility] Address [address] [place] [address]. [place] [address] [place] [address] Care Team Providers Care Engineer Assistant Name Role Phone Alejandro Blevins MD Primary Care Provider [phone] Reason for Visit * Reason Comments Infusion Therapy * Treatment/Therapy Plan Authorization (Routine) - Closed Specialty Diagnoses / Procedures Referred By Contac t Referred To Contact Diagnoses Iron deficiency anemia secondary to inadequate dietary iron intake Procedures IRON SUCROSE INJ, 20 MG Roberta Alex MD [address] [place] [address] Phone: tel: fax: [facility] [place] [address] Phone: tel: Referral ID Status Reason Start Date Expiration Date Visits Re quested Visits Authorized [id number] Closed 12/19/2019 04/23/2020 1 3 Encounter Details Date Type Department Care Team (Latest Contact Info) Description 02/22/2020 11:00 AM CDT - 02/22/2020 11:59 PM CDT Hospital Encounter [facility] [place] [address] Roberta Alex MD [address] [place] [address] Infusion Therapy Discharge Disposition: Home or Self Care (Routine Discharge) Social History Tobacco Use Types Packs/Day Years Used Date Smoking Tobacco: Every Day Smokeless Tobacco: Never Comments Yes Sex and Gender Information Value Date Recorded Sex Assigned at Not on file Legal Sex Female 11:30 PM PARIMUTUEL TICKET CASHIER Gender Identity Female 11/10/2021 3:09 PM CDT Sexual Orientation Straight 11/10/2021 3: 09 PM CDT COVID-19 Exposure Response Date Recorded In the last month, have you been in contact with someone who was confirmed or suspected to have Coronavirus / COVID-19? No / Unsure 02/22/2020 11:08 AM CDT documented as of this encounter Last Filed Vital Signs Vital Sign Reading Time Taken Comments Blood Pressure 121/74 02/22/2020 11:28 AM CDT Pulse 105 02/22/2020 11:28 AM CDT Temperature 36.2 ??C (97.2 ??F) 02/22/2020 1 1:28 AM CDT Respiratory Rate 20 02/22/2020 11:2 8 AM CDT Oxygen Saturation - - Inhaled Oxygen Concentration - - Weight 70.7 kg (155 lb 12.8 oz) 020 11:28 AM CDT Height - - Body Mass Index 27.6 02/05/2020 11:47 AM CDT documented in this encounter Medications [...] encounter Progress Notes * Cecilia Healy - 02/22/2020 11:59 PM CDTEncounter addended by: Cecilia Healy on: 02/25/2020 12:44 PM Actions taken: Charge Capture section accepted * Kamilah Thompson RN - 02/22/2020 11:31 AM CDT PATIENT ASSESSMENT: Admitted via: Ambulatory Admitted from: Home Planned procedure: Iron infusion Patient information verified by Kamilah Thompson RN. Barriers to learning: None Patient identity confirmed - Name and date of and Allergies Verified LOC: Alert Emotional: Calm Motor Activity: Gait steady Respiratory: Regular and even Circulatory: n/a Nutrition: Tolerated diet well Elimination: Voiding NURSING DIAGNOSIS: Risk of altered hemodynamic and respiratory status GOALS: Patient will maintain hemodynamic and respiratory status documented in this encounter Plan of Treatment Upcoming Encounters Date Type Department Care Team (Late st Contact Info) Description 09/25/2024 11:30 AM PARIMUTUEL TICKET CASHIER Appointment [facility] [address] [place] [address] Roberta Alex MD [address] [place] [address] 09/25/2024 11:40 AM PARIMUTUEL TICKET CASHIER Office Visit [facility] [place] [address] Roberta Alex MD [address] [place] [address] documented as of this encounter Visit Diagnoses Diagnosis Iron deficiency anemia secondary to inadequate dietary iron intake- Primary Other dietary vitamin B12 deficiency anemia documented in this encounter Administered Medications Inactive Administered Medications - up to 3 most recent administrations Medication Order MAR Action Action Date Dose Rate Site cyanocobalamin (B-12) injection 1,000 mcg 1,000 mcg, Intramuscular, Every 30 days, First dose on Tue02/22/20 at 1315, Until DiscontinuedIndications :Iron deficiency anemia secondary to inadequate dietary iron intake,Other dietary vitamin B12 deficiency anemia Given 02/22/2020 12:55 PM CDT 1,000 mcg Left Deltoid iron sucrose (VENOFER) 200 mg in sodium chloride 0.9 % 100 mL IVPB 200 mg, Intravenous, at 100 mL/hr, Once, 1 dose, On Tue02/22/20 at 1145Indications:Iron deficiency anemia secondary to inadequate dietary iron intake New Bag 02/22/2020 11:41 AM CDT 200 mg 100 mL/hr documented in this encounter Care Teams Engineer Assistant Relationship Specialty Start Date End Date Alejandro Blevins MD PCP - General FAMILY PRACTICE 12/10/19 documented as of this encounter
--- OUTSIDE RECORDS SUMMARY | 2024-07-11 05:44 | XMS_ITS | Encounter Summary ---
Author Organization [facility] Address [address] [facility] [place] [address] [place] [address] Care Team Providers Care Hob Mill Operator Name Role Phone Unavailable Primary Care Provider Unavailabl e Encounter Details Date Type Department Care Team (Late Contact Info) Description 03/28/2009 Abstract [facility] [address] [place] [address] Conner Gallegos MD [address] [place] [phone] Social History Tobacco Use Types Packs/Day Years Used Date Smoking Tobacco: Never Assessed Comments Unknown Sex and Gender Information Value Date Recorded Sex Assigned at Not on file Legal Sex Female 11:30 PM SAT INSTRUCTOR Gender Identity Female 11/10/2021 3:09 PM CDT Sexual Orientation Straight 11/10/2021 3: 09 PM CDT documented as of this encounter Plan of Treatment Upcoming Encounters Date Type Department Care Team (Late Contact Info) Description 09/25/2024 11:30 AM SAT INSTRUCTOR Appointment [facility] [address] [place] [address] Roberta Alex MD [address] [place] [address] 09/25/2024 11:40 AM SAT INSTRUCTOR Office Visit [facility] [address] [place] [address] Roberta Alex MD [address] [place] [address] documented as of this encounter Visit Diagnoses Diagnosis Pain in joint, lower leg documented in this encounter
--- OUTSIDE RECORDS SUMMARY | 2024-07-11 05:44 | XMS_ITS | Encounter Summary ---
Author Organization [facility] Address [address] [place] [address]. [place] [address] [place] [address] Care Team Providers Care Tennis Director Name Role Phone Alejandro Blevins MD Primary Care Provider [phone] Encounter Details Date Type Department Care Team (Late Contact Info) Description 12/18/2019 Orders Only [facility] [address] [place] [address] Roberta Alex MD [address] [place] [address] Social History Tobacco Use Types Packs/Day Years Used Date Smoking Tobacco: Never Assessed Comments Yes Sex and Gender Information Value Date Recorded Sex Assigned at Not on file Legal Sex Female 11:30 PM ARTIFICIAL FLOWERS STARCHER Gender Identity Female 11/10/2021 3:09 PM CDT [...] (Late Contact Info) Description 09/25/2024 11:30 AM ARTIFICIAL FLOWERS STARCHER Appointment [facility] [address] [place] [address] Roberta Alex MD [address] [place], [place] [address] 09/25/2024 11:40 AM ARTIFICIAL FLOWERS STARCHER Office Visit [facility] [place] [address] Roberta Alex MD [address] [place] [address] documented as of this encounter Results * VITAMIN B-12 (12/18/2019 2:06 PM CDT) VITAMIN B12 S/P/B 318 193 - 986 PG/ML 12/19/2019 4:18 PM CDT [facility] 12/18/2019 2:06 PM CDT Roberta Alex MD LABORATORY Final Result [facility] [address] [place] [address], [id number] * FERRITIN (12/18/2019 2:06 PM CDT) FERRITIN 51.6 8 - 252 NG/ML 12/18/2019 2:47 PM CDT [facility] 12/18/2019 2:06 PM CDT Roberta Alex MD LABORATORY Final Result [facility] [address] [place] [address], * (ABNORMAL) CBC W/DIFF AUTOMATED (12/18/2019 2:06 PM CDT) WBC 13.0(H) 4.5 - 10.8 x10'3/uL 12/18/2019 2:33 PM CDT [facility] RBC 4.26 4.10 - 5.40 x10'6/uL 12/18/2019 2:33 PM CDT [facility] HGB 9.1(L) 12.0 - 16.0 G/DL 12/18/2019 2:33 PM CDT [facility] HCT 30.7(L) 36.0 - 47.0 % 12/18/2019 2:33 PM CDT [facility] MCV 72.1(L) 78.0 - 100.0 FL 12/18/2019 2:33 PM CDT [facility] MCH 21.4(L) 27.0 - 31.0 PG 12/18/2019 2:33 PM CDT [facility] MCHC 29.6(L) 33.0 - 36.0 G/DL 12/18/2019 2:33 PM CDT [facility] RDW 29.3(H) 11.5 - 14.5 % 12/18/2019 2:33 PM CDT [facility] PLT 51(L) 150 - 350 x10'3/uL 12/18/2019 2:33 PM CDT [facility] MPV RESULTS NOT AVAILABLE 7.4 - 10.4 FL 12/18/2019 2:33 PM CDT [facility] DIFFERENTIAL COMMENT NORMAL REFERENCE RANGE NOT ESTABLISHED FOR THE PROPORTIONAL LEUKOCYTE DIFFERENTIAL. 12/18/2019 2:33 PM CDT [facility] SEG NEUTROPHILS 77.1 % 0 2:37 PM CDT [facility] LYMPHOCYTES 14.5 % 12/18/2019 2:37 PM CDT [facility] MONOCYTES 4.4 % 12/18/2019 2:37 PM CDT [facility] EOSINOPHILS 2.4 % 12/18/2019 2:37 PM CDT [facility] BASOPHILS 0.4 % 12/18/2019 2:37 PM CDT [facility] IMMATURE GRANS % 1.2 % 12/18/19 20 2:37 PM CDT [facility] NRBC 0.0 % 12/18/2019 2:37 PM CDT [facility] ABS. NEUTROPHILS 10.02(H) 1.60 - 8.30 x10'3/uL 12/18/2019 2:37 PM CDT [facility] ABS. LYMPHOCYTES 1.89 0.80 - 4.70 x10'3/uL 12/18/2019 2:37 PM CDT [facility] ABS. MONOCYTES 0.57 0.00 - 1.50 x10'3/uL 12/18/2019 2:37 PM CDT [facility] ABS. EOSINOPHILS 0.31 0.00 - 0.40 x10'3/uL 12/18/2019 2:37 PM CDT [facility] ABS. BASOPHILS 0.05 0.00 - 0.20 x10'3/uL 12/18/2019 2:37 PM CDT [facility] ABS. IMMATURE GRANULOCYTES 0.16(H) 0.00 - 0.03 x10'3/uL 12/18/2019 2:37 PM CDT [facility] ABS. NUCLEATED RBC'S 0.00 0.00 x10'3/uL 12/18/2019 2:37 PM CDT [facility] PLT MORPH. DECREASED 12/18/2019 2:37 PM CDT [facility] RBC MORPHOLOGY 2+ 12/18/2019 2:37 PM CDT [facility] Comment: MICROCYTES 1+ MACROCYTES 1+ HYPOCHROMASIA 1+ POIKILOCYTOSIS 3+ ANISOCYTOSIS 12/18/2019 2:06 PM CDT Roberta Alex MD LABORATORY Final Result [facility] [address] [email or web address] [address], documented in this encounter Visit Diagnoses Diagnosis Anemia, unspecified type- Primary documented in this encounter Care Teams Tennis Director Relationship Specialty Start Date End Date Alejandro Blevins MD PCP - General FAMILY PRACTICE 12/10/19 documented as of this encounter
--- OUTSIDE RECORDS SUMMARY | 2024-07-11 05:44 | XMS_ITS | Encounter Summary ---
Author Organization [facility] Address [address] [place] [address]. [place] [address] [place] [address] Care Team Providers Care Canoe Inspector Final Name Role Phone Alejandro Blevins MD Primary Care Provider [phone] Reason for Visit * Reason Comments Infusion Therapy * Treatment/Therapy Plan Authorization (Routine) - Closed Specialty Diagnoses / Procedures Referred By Contac t Referred To Contact Diagnoses Iron deficiency anemia secondary to inadequate dietary iron intake Procedures IRON SUCROSE INJ, 20 MG Roberta Alex MD [address] [place] [address] Phone: tel: fax: [facility] [place] [address] Phone: tel: Referral ID Status Reason Start Date Expiration Date Visits Re quested Visits Authorized [id number] Closed 12/19/2019 04/23/2020 1 3 Encounter Details Date Type Department Care Team (Latest Contact Info) Description 12/28/2019 10:00 AM CDT - 12/28/2019 10:16 AM CDT Hospital Encounter [facility] [place] [address] Roberta Alex MD [address] [place] [address] Infusion Therapy Discharge Disposition: Home or Self Care (Routine Discharge) Social History Tobacco Use Types Packs/Day Years Used Date Smoking Tobacco: Never Assessed Comments Yes Sex and Gender Information Value Date Recorded Sex Assigned at Not on file Legal Sex Female 11:30 PM EDGE BASTER Gender Identity Female 11/10/2021 3:09 PM CDT [...] Sign Reading Time Taken Comments Blood Pressure 128/77 12/28/2019 10:55 AM CDT Pulse 106 12/28/2019 10:55 AM CDT Temperature 36.2 ??C (97.2 ??F) 12/28/2019 10:55 AM C DT Respiratory Rate 18 12/28/2019 10:55 AM CDT Oxygen Saturation 100% 12/28/2019 10:55 AM CDT Inhaled Oxygen Concentration - - Weight 67.4 kg (148 lb 9.6 oz) 12/28/2019 10:55 AM CDT Height - - Body Mass Index 26.32 12/18/2019 1:02 PM CDT documented in this encounter Medications at Time of Discharge ferrous sulfate, 65 mg elemental, 325 (65 FE) MG tablet Take 325 mg by mouth daily. 12/09/2019 07/29/2020 folic acid 1 MG tablet Take 1 mg by mouth daily. 12/09/2019 07/08/2020 documented as of this encounter Progress Notes * Socorro Kenyon RN - 12/28/2019 12:33 PM CDTEncounter addended by: Socorro Kenyon RN on: 12/28/2019 12:33 PM Actions taken: Patient Education documented on * Socorro Kenyon RN - 12/28/2019 11:09 AM CDT PATIENT ASSESSMENT: Admitted via: Ambulatory Admitted from: Home Planned procedure: Venofer Patient information verified by SOCORRO KENYON RN. Barriers to learning: None Patient identity confirmed - Name and date of and Allergies Verified LOC: Alert Emotional: Calm Motor Activity: Gait steady Respiratory: Regular and even Circulatory: none Nutrition: Tolerated diet well Elimination: Voiding NURSING DIAGNOSIS: Risk of injury GOALS: Patient will be free from signs/symptoms of physical injury * Cecilia Healy - 12/28/2019 10:16 AM CDTEncounter addended by: Cecilia Healy on: 12/31/2019 12:58 PM Actions taken: Charge Capture section accepted documented in this encounter Plan of Treatment Upcoming Encounters Date Type Department Care Team (Late st Contact Info) Description 09/25/2024 11:30 AM EDGE BASTER Appointment [facility] [address] [place] [address] Roberta Alex MD [address] [place] [address] 09/25/2024 11:40 AM EDGE BASTER Office Visit [facility] [address] [place] [address] Roberta Alex MD [address] [place] [address] documented as of this encounter Visit Diagnoses Diagnosis Other dietary vitamin B12 deficiency anemia- Primary Iron deficiency anemia secondary to inadequate dietary iron intake documented in this encounter Administered Medications Inactive Administered Medications - up to 3 most recent administrations Medication Order MAR Action Action Date Dose Rate Site cyanocobalamin (B-12) injection 1,000 mcg 1,000 mcg, Intramuscular, Once, 1 dose, On Tue12/28/19 at 1115Indications:Other dietary vitamin B12 deficiency anemia Given 12/28/2019 12:19 PM CDT 1,000 mcg Right Deltoid iron sucrose (VENOFER) 200 mg in sodium chloride 0.9 % 100 mL IVPB 200 mg, Intravenous, at 400 mL/hr, Once, 1 dose, On Tue12/28/19 at 1115Indications:Iron deficiency anemia secondary to inadequate dietary iron intake New Bag 12/28/2019 11:04 AM CDT 200 mg 105 mL/hr documented in this encounter Care Teams Canoe Inspector Final Relationship Specialty Start Date End Date Alejandro Blevins MD PCP - General FAMILY PRACTICE 12/10/19 documented as of this encounter
--- OUTSIDE RECORDS SUMMARY | 2024-07-11 05:44 | XMS_ITS | Encounter Summary ---
Author Organization [facility] Address [address] [place] [address]. [place] [address] [place] [address] Care Team Providers Care Utility Inspector Name Role Phone Alejandro Blevins MD Primary Care Provider [phone] Reason for Visit * Reason Comments Infusion Therapy * Treatment/Therapy Plan Authorization (Routine) - Closed Specialty Diagnoses / Procedures Referred By Contac t Referred To Contact Diagnoses Iron deficiency anemia secondary to inadequate dietary iron intake Procedures IRON SUCROSE INJ, 20 MG Roberta Alex MD [address] [place] [address] Phone: tel: fax: [facility] [place] [address] Phone: tel: Referral ID Status Reason Start Date Expiration Date Visits Re quested Visits Authorized [id number] Closed 12/19/2019 04/23/2020 1 3 Encounter Details Date Type Department Care Team (Latest Contact Info) Description 02/15/2020 11:00 AM CDT - 02/15/2020 11:59 PM T Hospital Encounter [facility] [place] [address] Roberta Alex MD [address] [place] [address] Infusion Therapy Discharge Disposition: Home or Self Care (Routine Discharge) Social History Tobacco Use Types Packs/Day Years Used Date Smoking Tobacco: Every Day Smokeless Tobacco: Never Comments Yes Sex and Gender Information Value Date Recorded Sex Assigned at Not on file Legal Sex Female 11:30 PM PHYSICIAN ADVISOR Gender Identity Female 11/10/2021 3:09 PM CDT Sexual Orientation Straight 11/10/2021 3: 09 PM CDT COVID-19 Exposure Response Date Recorded In the last month, have you been in contact with someone who was confirmed or suspected to have Coronavirus / COVID-19? No / Unsure 02/15/2020 11:15 AM CDT documented as of this encounter Last Filed Vital Signs Vital Sign Reading Time Taken Comments Blood Pressure 124/67 02/15/2020 11:33 AM CDT Pulse 107 02/15/2020 11:33 AM CDT Temperature 36.8 ??C (98.2 ??F) 02/15/2020 11:33 AM C DT Respiratory Rate 20 02/15/2020 11:33 AM CDT Oxygen Saturation 99% 02/15/2020 11:33 AM CDT Inhaled Oxygen Concentration - - Weight 68.5 kg (151 lb) 02/15/2020 11:33 AM CDT Height - - Body Mass Index 26.75 02/05/2020 11:47 AM CDT documented in this encounter Discharge Instructions * Patient Instructions* Kamilah Thompson RN - 02/15/2020 12:54 PM CDT Call the infusion center or the [facility]er hand electrophysiology nurse practitioner with any post infusion concerns. Return to the infusion center as scheduled in one week for your second iron infusion. documented in this encounter Medications at Time [...] encounter Progress Notes * Cecilia Healy - 02/15/2020 11:59 PM CDTEncounter addended by: Cecilia Healy on: 02/18/2020 12:40 PM Actions taken: Charge Capture section accepted * Kamilah Thompson RN - 02/15/2020 11:37 AM CDT PATIENT ASSESSMENT: Admitted via: Ambulatory [...] st Contact Info) Description 09/25/2024 11:30 AM PHYSICIAN ADVISOR Appointment [facility] [address] [place] [address] Roberta Alex MD [address] [place] [address] 09/25/2024 11:40 AM PHYSICIAN ADVISOR Office Visit [facility] [address] [place] [address] Roberta Alex MD [address] [place] [address] documented as of this encounter Procedures Procedure Name Priority Date/Time Associated Diagnosis Comments VITAMIN B-12 Routine 02/15/2020 11:35 AM CDT Anemia, unspecified type FOLIC ACID SERUM Routine 02/15/2020 11:3 5 AM CDT Anemia, unspecified type documented in this encounter Results * FOLIC ACID SERUM (02/15/2020 11:35 AM CDT) FOLATE 10.2 3.1 - 17.5 NG/ML 02/16/2020 5:23 PM CDT [facility] Comment:MILD HEMOLYSIS, RESU LT MAY BE AFFECTED. 02/15/2020 11:3 5 AM CDT us Roberta Alex MD LABORATORY Final Result Performing Organization Address [facility] Co de Phone Number [facility] [address] [place] [address], [phone] * VITAMIN B-12 (02/15/2020 11:35 AM CDT) VITAMIN B12 S/P/B 281 193 - 986 PG/ML 02/16/2020 5:23 PM CDT [facility] 02/15/2020 11:3 5 AM CDT us Roberta Alex MD LABORATORY Final Result Performing Organization Address [facility] de Phone Number [facility] [address] [place] [address], [place] [phone] documented in this encounter Visit Diagnoses Diagnosis Iron deficiency anemia secondary to inadequate dietary iron intake- Primary Anemia, unspecified type documented in this encounter Administered Medications Inactive Administered Medications - up to 3 most recent administrations Medication Order MAR Action Action Date Dose Rate Site iron sucrose (VENOFER) 200 mg in sodium chloride 0.9 % 100 mL IVPB 200 mg, Intravenous, at 400 mL/hr, Once, 1 dose, On Tue02/15/20 at 1145Indications:Iron deficiency anemia secondary to inadequate dietary iron intake New Bag 02/15/2020 11:40 AM CDT 200 mg 400 mL/hr documented in this encounter Care Teams Utility Inspector Relationship Specialty Start Date End Date Alejandro Blevins MD PCP - General FAMILY PRACTICE 12/10/19 documented as of this encounter
--- OUTSIDE RECORDS SUMMARY | 2024-07-11 05:44 | XMS_ITS | Encounter Summary ---
Author Organization [facility] Address [facility] [facility] [place] [address] [place] [address] Care Team Providers Care Wire Walker Name Role Phone Alejandro Blevins MD Primary Care Provider [phone] Encounter Details Date Type Department Care Team (Latest Contact Info) Description 03/25/2020 11:15 AM CDT - 03/25/2020 11:59 PM CDT Hospital Encounter [address] [place] [address] Roberta Alex MD [address] [place], [place] [address] Discharge Disposition: Home or Self Care (Routine Discharge) Social History Tobacco Use Types Packs/Day Years Used Date Smoking Tobacco: Every Day Smokeless Tobacco: Never Comments Yes Sex and Gender Information Value Date Recorded Sex Assigned at Not on file Legal Sex Female 11:30 PM SPECIAL EDUCATION PRESCHOOL TEACHER Gender Identity Female 11/10/2021 3:09 PM CDT Sexual Orientation Straight 11/10/2021 3: 09 PM CDT COVID-19 Exposure Response Date Recorded In the last month, have you been in contact with someone who was confirmed or suspected to have Coronavirus / COVID-19? No / Unsure 03/25/2020 11:25 AM CDT documented as of this encounter [...] st Contact Info) Description 09/25/2024 11:30 AM SPECIAL EDUCATION PRESCHOOL TEACHER Appointment [facility] [place] [address] Roberta Alex MD [address] [place] [address] 09/25/2024 11:40 AM SPECIAL EDUCATION PRESCHOOL TEACHER Office [facility] [place] [address] Roberta Alex MD [address] [place] [phone] documented as of this encounter Procedures Procedure Name Priority Date/Time Associated Diagnosis Comments CARDIOLIPIN ANTIBODIES (IGG,IGA,IGM) Routine 03/25/2020 11:45 AM CDT Anti-Cardiolipin Antibody Positive VITAMIN B-12 Routine 03/25/2020 11:45 AM CDT Other Dietary Vitamin B12 Deficiency Anemia CBC W/DIFF AUTOMATED Routine 03/25/2020 11:45 AM CDT Iron deficiency anemia secondary to inadequate dietary iron intake Other Dietary Vitamin B12 Deficiency Anemia Anti-Cardiolipin Antibody Positive documented in this encounter Results * (ABNORMAL) CBC W/DIFF AUTOMATED (03/25/2020 11:45 AM CDT) WBC 8.6 4.5 - 10.8 x10'3/uL 03/25/2020 12:[address] [facility] RBC 4.05(L) 4.10 - 5.40 x10'6/uL 03/25/2020 12:[address] [facility] HGB 10.8(L) 12.0 - 16.0 G/DL 03/25/2020 12:[address] [facility] HCT 34.3(L) 36.0 - 47.0 % 03/25/2020 12:[address] [facility] MCV 84.7 78.0 - 100.0 FL 03/25/2020 12:[address] [facility] MCH 26.7(L) 27.0 - 31.0 PG 03/25/2020 12:[address] [facility] MCHC 31.5(L) 33.0 - 36.0 G/DL 03/25/2020 12:[address] [facility] RDW 20.8(H) 11.5 - 14.5 % 03/25/2020 12:[address] [facility] PLT 35(L) 150 - 350 x10'3/uL 03/25/2020 12:05 [address] [facility] MPV RESULTS NOT AVAILABLE 7.4 - 10.4 FL 03/25/2020 12:[address] [facility] DIFFERENTIAL COMMENT NORMAL REFERENCE RANGE NOT ESTABLISHED FOR THE PROPORTIONAL LEUKOCYTE DIFFERENTIAL. 03/25/2020 12:[address] [facility] SEG NEUTROPHILS 77.0 % 0 12:[address] [facility] LYMPHOCYTES 15.4 % 03/25/2020 12:31 [address] [facility] MONOCYTES 5.5 % 03/25/2020 12:31 [address] [facility] EOSINOPHILS 0.9 % 03/25/2020 12:31 [address] [facility] BASOPHILS 0.5 % 03/25/2020 12:31 [address] [facility] IMMATURE GRANS % 0.7 % 03/25/20 20 12:[address] [facility] NRBC 0.0 % 03/25/2020 12:31 [address] [facility] ABS. NEUTROPHILS 6.63 1.60 - 8.30 x10'3/uL 03/25/2020 12:31 [address] [facility] ABS. LYMPHOCYTES 1.32 0.80 - 4.70 x10'3/uL 03/25/2020 12:31 [address] [facility] ABS. MONOCYTES 0.47 0.00 - 1.50 x10'3/uL 03/25/2020 12:31 [address] [facility] ABS. EOSINOPHILS 0.08 0.00 - 0.40 x10'3/uL 03/25/2020 12:31 [address] [facility] ABS. BASOPHILS 0.04 0.00 - 0.20 x10'3/uL 03/25/2020 12:[address] [facility] ABS. IMMATURE GRANULOCYTES 0.06(H) 0.00 - 0.03 x10'3/uL 03/25/2020 12:[address] [facility] ABS. NUCLEATED RBC'S 0.00 0.00 x10'3/uL 03/25/2020 12:31 [address] [facility] PLT MORPH. DECREASED 03/25/2020 12:[address] [facility] RBC MORPHOLOGY 2+ 03/25/2020 12:[address] [facility] Comment: ANISOCYTOSIS 1+ MICROCYTES 1+ POIKILOCYTOSIS 03/25/2020 11:4 5 AM CDT us Roberta Alex MD LABORATORY Final Result [facility] [address] [place] [address], * VITAMIN B-12 (03/25/2020 11:45 AM CDT) VITAMIN B12 S/P/B 326 193 - 986 PG/ML 03/26/2020 5:07 PM CDT [facility] 03/25/2020 11:4 5 AM CDT Roberta Alex MD LABORATORY Final Result [facility] [address] [place] [address], [id number] * (ABNORMAL) CARDIOLIPIN ANTIBODIES (IGG,IGA,IGM) (03/25/2020 11:45 AM CDT) CARDIOLIPIN AB IGG <14 <=14 GPL 2019 9:25 PM CDT [facility] Comment: Cardiolipin Ab (IgG) Reference Range: Value ? Interpretation ? < or = 14 ? Negative 15 - 20 ? Indeterminate 21 - 80 ? Low to Medium Positive > 80 ?High Positive CARDIOLIPIN AB IGM 37(H) <=12 MPL 2019 9:25 PM CDT [facility] Comment: Cardiolipin Ab (IgM) Reference Range: Value ? [...] drug therapy or aging. Test Performed by [employer], [facility], [address] [place] [address] Hank Landin M.D., Ph.D., Director of Laboratories , [facility] [id number] CARDIOLIPIN AB IGA <11 <=11 APL 2019 9:25 PM CDT [facility] Comment: Cardiolipin Ab (IgA) Reference Range: Value ? Interpretation ? < or = 11 ? Negative 12 - 20 ? Indeterminate 21 - 80 ? Low to Medium Positive > 80 ?High Positive 03/25/2020 11:4 5 AM CDT Roberta Alex MD LABORATORY Final Result [facility] [address] [id number], documented in this encounter Visit Diagnoses Diagnosis Anti-cardiolipin antibody positive Other and unspecified nonspecific immunological findings Other dietary vitamin B12 deficiency anemia Iron deficiency anemia secondary to inadequate dietary iron intake documented in this encounter Care Teams Wire Walker Relationship Specialty Start Date End Date Alejandro Blevins MD PCP - General FAMILY PRACTICE 12/10/19 documented as of this encounter
--- OUTSIDE RECORDS SUMMARY | 2024-07-11 05:44 | XMS_ITS | Encounter Summary ---
Author Organization [facility] Address [address] [place] [address]. [place] [address] [place] [address] Care Team Providers Care Associate Professor Of Pathology Name Role Phone Unavailable Primary Care Provider Unavailabl e Encounter Details Date Type Department Care Team (Late st Contact Info) Description 10/14/2008 Abstract [facility] [address] [place] [address] Social History Tobacco Use Types Packs/Day Years Used Date Smoking Tobacco: Never Assessed Comments Unknown Sex and Gender Information Value Date Recorded Sex Assigned at Not on file Legal Sex Female 11:30 PM CARPENTRY TEACHER Gender Identity Female 11/10/2021 3:09 PM CDT Sexual Orientation Straight 11/10/2021 3: 09 PM CDT documented as of this encounter Plan of Treatment Upcoming Encounters Date Type Department Care Team (Late st Contact Info) Description 09/25/2024 11:30 AM CARPENTRY TEACHER Appointment [facility] [address] [place] [address] Roberta Alex MD [address] [place] [address] 09/25/2024 11:40 AM CARPENTRY TEACHER Office Visit [facility] [address] [place] [address] Roberta Alex MD [address] [place] [address] documented as of this encounter Visit Diagnoses Diagnosis Contusion of hand Contusion of hand(s) documented in this encounter
--- OUTSIDE RECORDS SUMMARY | 2024-07-11 05:44 | XMS_ITS | Encounter Summary ---
Author Organization [facility] Address [address] [place] [address]. [place], [place] [address] [place] [address] Care Team Providers Care Plate Finisher Name Role Phone Alejandro Blevins MD Primary Care Provider Encounter Details Date Type Department Care Team (Latest Contact Info) Description 02/15/2020 Travel Social History Tobacco Use Types Packs/Day Years Used Date Smoking Tobacco: Every Day Smokeless Tobacco: Never Comments Yes Sex and Gender Information Value Date Recorded Sex Assigned at Not on file Legal Sex Female 11:30 PM ARCH SUPPORT TECHNICIAN Gender Identity Female 11/10/2021 3:09 PM [...] st Contact Info) Description 09/25/2024 11:30 AM ARCH SUPPORT TECHNICIAN Appointment [facility] [address] [place] [address] Roberta Alxe MD [address] [place] [address] 09/25/2024 11:40 AM ARCH SUPPORT TECHNICIAN Office Visit [facility] [address] [place] [address] Roberta Alex MD [address] [place] [address] documented as of this encounter Visit Diagnoses Not on filedocumented in this encounter Care Teams Plate Finisher Relationship Specialty Start Date End Date Alejandro Blevins MD PCP - General FAMILY PRACTICE 12/10/19 documented as of this encounter
--- OUTSIDE RECORDS SUMMARY | 2024-07-11 05:44 | XMS_ITS | Encounter Summary ---
Author Organization [facility] Address [facility] [place] [address] [place] [address] Care Team Providers Care Biological Aide Name Role Phone Unavailable Primary Care Provider Unavailabl e Encounter Details Date Type Department Care Team (Late Contact Info) Description 08/14/2014 Abstract [facility] [address] [place] [address] Gloria Jain MD [address] [place] [address] [place] [address] Social History Tobacco Use Types Packs/Day Years Used Date Smoking Tobacco: Never Assessed Comments Unknown Sex and Gender Information Value Date Recorded Sex Assigned at Not on file Legal Sex Female 11:30 PM POINT OF SALE ASSOCIATE Gender Identity Female 11/10/2021 3:09 PM CDT Sexual Orientation Straight 11/10/2021 3: 09 PM CDT documented as of this encounter Plan of Treatment Upcoming Encounters Date Type Department Care Team (Late Contact Info) Description 09/25/2024 11:30 AM POINT OF SALE ASSOCIATE Appointment [facility] [address] [place] [address] Roberta Alex MD [address] [place] [address] 09/25/2024 11:40 AM POINT OF SALE ASSOCIATE Office Visit [facility] [address] [place] [address] Roberta Alex MD [address] [place] [address] documented as of this encounter Visit Diagnoses Diagnosis Hepatitis C virus infection without hepatic coma documented in this encounter
--- OUTSIDE RECORDS SUMMARY | 2024-07-11 05:44 | XMS_ITS | Encounter Summary ---
Author Organization [facility] Address [address] [place] [address]. [place] [address] [place] [address] Care Team Providers Care Hardware Installer Name Role Phone Alejandro Blevins MD Primary Care Provider [phone] Encounter Details Date Type Department Care Team (Latest Contact Info) Description 12/28/2019 9:55 AM CDT - 12/28/2019 9:59 AM CDT Hospital Encounter [address] [place] [address] Roberta Alex MD [address] [place] [address] Discharge Disposition: Home or Self Care (Routine Discharge) Social History Tobacco Use Types Packs/Day Years Used Date Smoking Tobacco: Never Assessed Comments Yes Sex and Gender Information Value Date Recorded Sex Assigned at Not on file Legal Sex Female 11:[address]ACHINE OPERATOR Gender Identity Female 11/10/2021 3:09 PM CDT Sexual Orientation Straight 11/10/2021 3: 09 PM CDT COVID-19 Exposure Response Date Recorded In the last month, have you been in contact with someone who was confirmed or suspected to have Coronavirus / COVID-19? No / Unsure 12/26/2019 8:05 AM CDT documented as of this encounter Medications at Time of Discharge ferrous sulfate, 65 mg elemental, 325 (65 FE) MG tablet Take 325 mg by mouth daily. 12/09/2019 07/29/2020 folic acid 1 MG tablet Take 1 mg by mouth daily. 12/09/2019 07/08/2020 documented as of this encounter Plan of Treatment Upcoming Encounters Date Type Department Care Team (Late st Contact Info) Description 09/25/2024 11:[address] MACHINE OPERATOR Appointment [facility] [place] [address] Roberta Alex MD [address] [place] [address] 09/25/2024 11:[address] MACHINE OPERATOR Office Visit [facility] [place] [address] Roberta Alex MD [address] [place], [place] [address] documented as of this encounter Procedures Procedure Name Priority Date/Time Associated Diagnosis Comments INTRINSIC FACTOR ANTIBODY Routine 12/28/2019 10:32 AM CDT Hepatitis C virus infection without hepatic coma Thrombocytopenia affecting (CMS/HCC HHS/HCC) Transaminitis documented in this encounter Results * INTRINSIC FACTOR ANTIBODY (12/28/2019 10:32 AM CDT) INTRINSIC FACTOR BLOCK AB Negative Negative 12/30/2019 6:59 PM CDT adRise JUSTIN PEACE Comment: For additional information, please refer to http://education.[employer]/faq/IFAB (This link is being provided for informational/ educational purposes only.) Test Performed by Scott Quintana, [employer] Jovan Rodriguez [place], [address] [place] [address] Hank Landin M.D., Ph.D., Director of Laboratories , [place] [id number] 12/28/2019 10:3 2 AM CDT Roberta Alex MD LABORATORY Final Result adRise [address] [address], documented in this encounter Visit Diagnoses Diagnosis Hepatitis C virus infection without hepatic coma Thrombocytopenia affecting (CMS/HCC HHS/HCC) Transaminitis Nonspecific elevation of levels of transaminase or lactic acid dehydrogenase (LDH) documented in this encounter Care Teams Hardware Installer Relationship Specialty Start Date End Date Alejandro Blevins MD PCP - General FAMILY PRACTICE 12/10/19 documented as of this encounter
--- OUTSIDE RECORDS SUMMARY | 2024-07-11 05:44 | XMS_ITS | Encounter Summary ---
Author Organization [facility] Address [address] [place] [address]. [place], [place] [address] [place] [address] Care Team Providers Care Improvement Coordinator Name Role Phone Alejandro Blevins MD Primary Care Provider [phone] Encounter Details Date Type Department Care Team (Latest Contact Info) Description 02/05/2020 Travel Social History Tobacco Use Types Packs/Day Years Used Date Smoking Tobacco: Every Day Smokeless Tobacco: Never Comments Yes Sex and Gender Information Value Date Recorded Sex Assigned at Not on file Legal Sex Female 11:30 PM COMMERCIAL CONSTRUCTION PROJECT MANAGER Gender Identity Female 11/10/2021 3:09 PM [...] st Contact Info) Description 09/25/2024 11:30 AM COMMERCIAL CONSTRUCTION PROJECT MANAGER Appointment [facility] [address] [place] [address] Roberta Alex MD [address] [place] [address] 09/25/2024 11:40 AM COMMERCIAL CONSTRUCTION PROJECT MANAGER Office Visit [facility] [address] [place] [address] Roberta Alex MD [address] [place] [address] documented as of this encounter Visit Diagnoses Not on filedocumented in this encounter Care Teams Improvement Coordinator Relationship Specialty Start Date End Date Alejandro Blevins MD PCP - General FAMILY PRACTICE 12/10/19 documented as of this encounter
--- OUTSIDE RECORDS SUMMARY | 2024-07-11 05:44 | XMS_ITS | Encounter Summary ---
Author Organization [facility] Address [address] [facility] [place] [address] [place] [address] Care Team Providers Care Line Construction Superintendent Name Role Phone Unavailable Primary Care Provider Unavailabl e Encounter Details Date Type Department Care Team (Late Contact Info) Description 02/02/2009 Abstract [facility] [address] [place] [address] Conner Gallegos MD [address] [place] [id number] Social History Tobacco Use Types Packs/Day Years Used Date Smoking Tobacco: Never Assessed Comments Unknown Sex and Gender Information Value Date Recorded Sex Assigned at Not on file Legal Sex Female 11:30 PM EBD TEACHER Gender Identity Female 11/10/2021 3:09 PM CDT Sexual Orientation Straight 11/10/2021 3: 09 PM CDT documented as of this encounter Plan of Treatment Upcoming Encounters Date Type Department Care Team (Late Contact Info) Description 09/25/2024 11:30 AM EBD TEACHER Appointment [facility] [address] [place] [address] Roberta Alex MD [address] [place] [address] 09/25/2024 11:40 AM EBD TEACHER Office Visit [facility] [address] [place] [address] Roberta Alex MD [address] [place] [address] documented as of this encounter Visit Diagnoses Diagnosis Sprain of foot Sprain of foot, unspecified site documented in this encounter
--- OUTSIDE RECORDS SUMMARY | 2024-07-11 05:44 | XMS_ITS | Encounter Summary ---
Author Organization [facility] Address [address] [place] [address]. [place] [address] [place] [address] Care Team Providers Care Outpatient Physical Therapist Name Role Phone Alejandro Blevins MD Primary Care Provider [phone] Reason for Visit * Reason Onset Date Comments Appointment Request 04/15/2020 Encounter Details Date Type Department Care Team ([facility] Contact Info) Description 04/15/2020 Telephone [facility] [place] [place] [address] Socorro Kenyon, RN Appointment Request Social History Tobacco Use Types Packs/Day Years Used Date Smoking Tobacco: Every Day Smokeless Tobacco: Never Comments Yes Sex and Gender Information Value Date Recorded Sex Assigned at Not on file Legal Sex Female 11:30 PM ACCESS SERVICES LIBRARIAN Gender Identity Female 11/10/2021 3:09 PM CDT [...] (Late Contact Info) Description 09/25/2024 11:30 AM ACCESS SERVICES LIBRARIAN Appointment [facility] [place] [address] Roberta Alex MD [address] [place] [address] 09/25/2024 11:40 AM ACCESS SERVICES LIBRARIAN Office Visit [facility] [place] [address] Roberta Alex MD [address] [place] [address] documented as of this encounter Visit Diagnoses Not on filedocumented in this encounter Care Teams Outpatient Physical Therapist Relationship Specialty Start Date End Date Alejandro Blevins MD PCP - General FAMILY PRACTICE 12/10/19 documented as of this encounter
--- OUTSIDE RECORDS SUMMARY | 2024-07-11 05:44 | XMS_ITS | Encounter Summary ---
Author Organization [facility] Address [address] [place] [address]. [place] [address] [place] [address] Care Team Providers Care Painter Foreman Name Role Phone Alejandro Blevins MD Primary Care Provider [phone] Encounter Details Date Type Department Care Team (Latest Contact Info) Description 01/10/2020 Travel Social History Tobacco Use Types Packs/Day Years Used Date Smoking Tobacco: Every Day Smokeless Tobacco: Never Comments Yes Sex and Gender Information Value Date Recorded Sex Assigned at Not on file Legal Sex Female 11:30 PM KNITTER OPERATOR Gender Identity Female 11/10/2021 3:09 PM CDT Sexual Orientation Straight 11/10/2021 3: 09 PM CDT COVID-19 Exposure Response Date Recorded In the last month, have you been in contact with someone who was confirmed or suspected to have Coronavirus / COVID-19? No / Unsure 01/10/2020 10:06 AM CDT documented as of this encounter Plan of Treatment Upcoming Encounters Date Type Department Care Team (Late st Contact Info) Description 09/25/2024 11:30 AM KNITTER OPERATOR Appointment [facility] [address] [place] [address] Roberta Alex MD [address] [place] [address] 09/25/2024 11:40 AM KNITTER OPERATOR Office Visit [facility] [address] [place] [address] Roberta Alex MD [address] [place] [address] documented as of this encounter Visit Diagnoses Not on filedocumented in this encounter Care Teams Painter Foreman Relationship Specialty Start Date End Date Alejandro Blevins MD PCP - General FAMILY PRACTICE 12/10/19 documented as of this encounter
--- OUTSIDE RECORDS SUMMARY | 2024-07-11 05:44 | XMS_ITS | Encounter Summary ---
Author Organization [facility] Address [address] [place] [address]. [place], [place] [address] [place] [address] Care Team Providers Care Quitline Counselor Name Role Phone Alejandro Blevins MD Primary Care Provider [phone] Encounter Details Date Type Department Care Team (Latest Contact Info) Description 04/16/2020 Travel Social History Tobacco Use Types Packs/Day Years Used Date Smoking Tobacco: Every Day Smokeless Tobacco: Never Comments Yes Sex and Gender Information Value Date Recorded Sex Assigned at Not on file Legal Sex Female 11:30 PM PUBLICATIONS WRITER Gender Identity Female 11/10/2021 3:09 PM CDT Sexual Orientation Straight 11/10/2021 3: 09 PM CDT COVID-19 Exposure Response Date Recorded In the last month, have you been in contact with someone who was confirmed or suspected to have Coronavirus / COVID-19? No / Unsure 04/16/2020 9:44 AM CDT documented as of this encounter Plan of Treatment Upcoming Encounters Date Type Department Care Team (Late st Contact Info) Description 09/25/2024 11:30 AM PUBLICATIONS WRITER Appointment [facility] [address] [place] [address] Roberta Alex MD [address] [place] [address] 09/25/2024 11:40 AM PUBLICATIONS WRITER Office Visit [facility] [address] [place] [address] Roberta Alex MD [address] [place] [address] documented as of this encounter Visit Diagnoses Not on filedocumented in this encounter Care Teams Quitline Counselor Relationship Specialty Start Date End Date Alejandro Blevins MD PCP - General FAMILY PRACTICE 12/10/19 documented as of this encounter
--- OUTSIDE RECORDS SUMMARY | 2024-07-11 05:44 | XMS_ITS | Encounter Summary ---
Author Organization [facility] Address [address] [place] [address]. [place] [address] [place] [address] Care Team Providers Care Maintenance Equipment Operator Name Role Phone Alejandro Blevins MD Primary Care Provider [phone] Encounter Details Date Type Department Care Team (Latest Contact Info) Description 12/18/2019 Travel Social History Tobacco Use Types Packs/Day Years Used Date Smoking Tobacco: Never Assessed Comments Yes Sex and Gender Information Value Date Recorded Sex Assigned at Not on file Legal Sex Female 11:30 PM BEE PRODUCER Gender Identity Female 11/10/2021 3:09 PM CDT [...] st Contact Info) Description 09/25/2024 11:30 AM BEE PRODUCER Appointment [facility] [address] [place] [address] Roberta Alex MD [address] [place] [address] 09/25/2024 11:40 AM BEE PRODUCER Office Visit [facility] [address] [place] [address] Roberta Alex MD [address] [place] [address] documented as of this encounter Visit Diagnoses Not on filedocumented in this encounter Care Teams Maintenance Equipment Operator Relationship Specialty Start Date End Date Alejandro Blevins MD PCP - General FAMILY PRACTICE 12/10/19 documented as of this encounter
--- OUTSIDE RECORDS SUMMARY | 2024-07-11 05:44 | XMS_ITS | Encounter Summary ---
Author Organization [facility] Address [facility] [place] [address] [place] [address] Care Team Providers Care Rivet Passer Name Role Phone Alejandro Blevins MD Primary Care Provider [phone] Encounter Details Date Type Department Care Team (Latest Contact Info) Description 03/04/2020 10:30 AM CDT - 03/04/2020 10:43 AM CDT Hospital Encounter [address] [place] [address] Roberta Alex MD [address] [place], [place] [address] Discharge Disposition: Home or Self Care (Routine Discharge) Social History Tobacco Use Types Packs/Day Years Used Date Smoking Tobacco: Every Day Smokeless Tobacco: Never Comments Yes Sex and Gender Information Value Date Recorded Sex Assigned at Not on file Legal Sex Female 11:30 PM GLUE WHEEL OPERATOR Gender Identity Female 11/10/2021 3:09 PM CDT Sexual Orientation Straight 11/10/2021 3: 09 PM CDT COVID-19 Exposure Response Date Recorded In the last month, have you been in contact with someone who was confirmed or suspected to have Coronavirus / COVID-19? No / Unsure 03/04/2020 10:42 AM CDT documented as of this encounter [...] st Contact Info) Description 09/25/2024 11:30 AM GLUE WHEEL OPERATOR Appointment [facility] [place] [address] Roberta Alex MD [address] [place] [address] 09/25/2024 11:40 AM GLUE WHEEL OPERATOR Office Visit [facility] [place] [address] Roberta Alex MD [address] [place] [id number] documented as of this encounter Procedures Procedure Name Priority Date/Time Associated Diagnosis Comments IRON SAT PANEL (IRON,IBC,%SAT) Routine 03/04/2020 10:54 AM CDT Thrombocytopenia affecting ([facility] HHS/HCC) Iron deficiency anemia secondary to inadequate dietary iron intake CBC W/DIFF AUTOMATED Routine 03/04/2020 10:54 AM CDT Thrombocytopenia affecting (CMS/HCC HHS/HCC) Iron deficiency anemia secondary to inadequate dietary iron intake FERRITIN Routine 03/04/2020 10:54 AM CDT Thrombocytopenia affecting ([facility]/HCC HHS/HCC) Iron deficiency anemia secondary to inadequate dietary iron intake documented in this encounter Results * FERRITIN (03/04/2020 10:54 AM CDT) FERRITIN 25.3 8 - 252 NG/ML 03/04/2020 11:37 AM CDT [facility] 03/04/2020 10:5 4 AM CDT us Roberta Alex MD LABORATORY Final Result Performing Organization Address [facility]/ZIP Co de Phone Number [facility] [address] [place] [address], * (ABNORMAL) IRON SAT PANEL (IRON,IBC,%SAT) (03/04/2020 10:54 AM CDT) IRON 31(L) 50 - 170 MCG/DL 03/04/2020 11:27 AM CDT [facility] IRON BINDING CAPACITY 721(H) 250 - 450 MCG/DL 03/04/2020 11:27 AM CDT [facility] IRON SATURATION 4 % 0 11:27 AM CDT [facility] Comment:REFERENCE RANGE NOT ESTABLISHED 03/04/2020 10:5 4 AM CDT us Roberta Alex MD LABORATORY Final Result Performing Organization Address [facility] Co de Phone Number [facility] [address] [place] [address], * (ABNORMAL) CBC W/DIFF AUTOMATED (03/04/2020 10:54 AM CDT) WBC 9.7 4.5 - 10.8 x10'3/uL 03/04/2020 11:04 AM CDT [facility] RBC 4.11 4.10 - 5.40 x10'6/uL 03/04/2020 11:04 AM CDT [facility] HGB 10.8(L) 12.0 - 16.0 G/DL 03/04/2020 11:04 AM CDT [facility] HCT 34.8(L) 36.0 - 47.0 % 03/04/2020 11:04 AM CDT [facility] MCV 84.7 78.0 - 100.0 FL 03/04/2020 11:04 AM CDT [facility] MCH 26.3(L) 27.0 - 31.0 PG 03/04/2020 11:04 AM CDT [facility] MCHC 31.0(L) 33.0 - 36.0 G/DL 03/04/2020 11:04 AM CDT [facility] RDW 21.1(H) 11.5 - 14.5 % 03/04/2020 11:04 AM CDT [facility] PLT 42(L) 150 - 350 x10'3/uL 03/04/2020 11:04 AM CDT [facility] MPV RESULTS NOT AVAILABLE 7.4 - 10.4 FL 03/04/2020 11:04 AM CDT [facility] DIFFERENTIAL COMMENT NORMAL REFERENCE RANGE NOT ESTABLISHED FOR THE PROPORTIONAL LEUKOCYTE DIFFERENTIAL. 03/04/2020 11:04 AM CDT [facility] SEG NEUTROPHILS 76.6 % 0 11:31 AM CDT [facility] LYMPHOCYTES 16.6 % 03/04/2020 11:31 AM CDT [facility] MONOCYTES 4.8 % 03/04/2020 11:31 AM CDT [facility] EOSINOPHILS 0.7 % 03/04/2020 11:31 AM CDT [facility] BASOPHILS 0.4 % 03/04/2020 11:31 AM CDT [facility] IMMATURE GRANS % 0.9 % 03/04/20 20 11:31 AM CDT [facility] NRBC 0.0 % 03/04/2020 11:31 AM CDT [facility] ABS. NEUTROPHILS 7.42 1.60 - 8.30 x10'3/uL 03/04/2020 11:31 AM CDT [facility] ABS. LYMPHOCYTES 1.61 0.80 - 4.70 x10'3/uL 03/04/2020 11:31 AM CDT [facility] ABS. MONOCYTES 0.47 0.00 - 1.50 x10'3/uL 03/04/2020 11:31 AM CDT [facility] ABS. EOSINOPHILS 0.07 0.00 - 0.40 x10'3/uL 03/04/2020 11:31 AM CDT [facility] ABS. BASOPHILS 0.04 0.00 - 0.20 x10'3/uL 03/04/2020 11:31 AM CDT [facility] ABS. IMMATURE GRANULOCYTES 0.09(H) 0.00 - 0.03 x10'3/uL 03/04/2020 11:31 AM CDT [facility] ABS. NUCLEATED RBC'S 0.00 0.00 x10'3/uL 03/04/2020 11:31 AM CDT [facility] PLT MORPH. DECREASED 03/04/2020 11:31 AM CDT [facility] RBC MORPHOLOGY 1+ 03/04/2020 11:31 AM CDT [facility] Comment: HYPOCHROMASIA 1+ ANISOCYTOSIS 03/04/2020 10:5 4 AM CDT us Roberta Alex MD LABORATORY Final Result [facility] [address] [place] [address], documented in this encounter Visit Diagnoses Diagnosis Thrombocytopenia affecting (CMS/HCC HHS/HCC) Iron deficiency anemia secondary to inadequate dietary iron intake documented in this encounter Care Teams Rivet Passer Relationship Specialty Start Date End Date Alejandro Blevins MD PCP - General FAMILY PRACTICE 12/10/19 documented as of this encounter
--- OUTSIDE RECORDS SUMMARY | 2024-07-11 05:44 | XMS_ITS | Encounter Summary ---
Author Organization [facility] Address [facility] [place] [address] [place] [address] Care Team Providers Care Aquatic Centre Manager Name Role Phone Unavailable Primary Care Provider Unavailabl e Encounter Details Date Type Department Care Team (Late Contact Info) Description 05/31/2008 Abstract [facility] [address] [place] [address] Cirilo Schultz MD [address] [place] [phone] Social History Tobacco Use Types Packs/Day Years Used Date Smoking Tobacco: Never Assessed Comments Unknown Sex and Gender Information Value Date Recorded Sex Assigned at Not on file Legal Sex Female 11:30 PM CORPORATE COORDINATOR Gender Identity Female 11/10/2021 3:09 PM CDT Sexual Orientation Straight 11/10/2021 3: 09 PM CDT documented as of this encounter Plan of Treatment Upcoming Encounters Date Type Department Care Team (Late Contact Info) Description 09/25/2024 11:30 AM CORPORATE COORDINATOR Appointment [facility] [address] [place] [address] Roberta Alex MD [address] [place] [address] 09/25/2024 11:40 AM CORPORATE COORDINATOR Office Visit [facility] [address] [place] [address] Roberta Alex MD [address] [place] [address] documented as of this encounter Visit Diagnoses Not on filedocumented in this encounter
--- OUTSIDE RECORDS SUMMARY | 2024-07-11 05:44 | XMS_ITS | Encounter Summary ---
Author Organization [facility] Address [facility] [place] [address] [place] [address] Care Team Providers Care Mine Motor Engineer Name Role Phone Unavailable Primary Care Provider Unavailabl e Encounter Details Date Type Department Care Team (Late Contact Info) Description 03/18/2009 Abstract [facility] [address] [place] [address] Cirilo Schultz MD [address] [place] [phone] Social History Tobacco Use Types Packs/Day Years Used Date Smoking Tobacco: Never Assessed Comments Unknown Sex and Gender Information Value Date Recorded Sex Assigned at Not on file Legal Sex Female 11:30 PM NECK PINNER Gender Identity Female 11/10/2021 3:09 PM CDT Sexual Orientation Straight 11/10/2021 3: 09 PM CDT documented as of this encounter Plan of Treatment Upcoming Encounters Date Type Department Care Team (Late Contact Info) Description 09/25/2024 11:30 AM NECK PINNER Appointment [facility] [facility] [address] [place] [address] Roberta Alex MD [address] [place] [address] 09/25/2024 11:40 AM NECK PINNER Office Visit [facility] [address] [place] [address] Roberta Alex MD [address] [place] [address] documented as of this encounter Visit Diagnoses Diagnosis Pain in joint, lower leg documented in this encounter
--- OUTSIDE RECORDS SUMMARY | 2024-07-11 05:44 | XMS_ITS | Encounter Summary ---
Author Organization [facility] Address [address] [place] [address]. [place] [address] [place] [address] Care Team Providers Care Multimedia Project Manager Name Role Phone Unavailable Primary Care Provider Unavailabl e Encounter Details Date Type Department Care Team (Late st Contact Info) Description 01/30/2012 Abstract [facility] [address] [place] [address] Social History Tobacco Use Types Packs/Day Years Used Date Smoking Tobacco: Never Assessed Comments Unknown Sex and Gender Information Value Date Recorded Sex Assigned at Not on file Legal Sex Female 11:30 PM DIRECTOR CPG Gender Identity Female 11/10/2021 3:09 PM CDT Sexual Orientation Straight 11/10/2021 3: 09 PM CDT documented as of this encounter Plan of Treatment Upcoming Encounters Date Type Department Care Team (Late st Contact Info) Description 09/25/2024 11:30 AM DIRECTOR CPG Appointment [facility] [address] [place] [address] Roberta Alex MD [address] [place] [address] 09/25/2024 11:40 AM DIRECTOR CPG Office Visit [facility] [address] [place] [address] Roberta Alex MD [address] [place] [address] documented as of this encounter Visit Diagnoses Diagnosis Redness or discharge of eye documented in this encounter
--- OUTSIDE RECORDS SUMMARY | 2024-07-11 05:44 | XMS_ITS | Encounter Summary ---
Author Organization [facility] Address [facility] [place] [address] [place] [address] Care Team Providers Care Bias Binding Cutter Name Role Phone Unavailable Primary Care Provider Unavailabl e Encounter Details Date Type Department Care Team (Late Contact Info) Description 03/26/2009 Abstract [facility] [address] [place] [address] Joseph Iqbal MD [address] [place] [address] Social History Tobacco Use Types Packs/Day Years Used Date Smoking Tobacco: Never Assessed Comments Unknown Sex and Gender Information Value Date Recorded Sex Assigned at Not on file Legal Sex Female 11:30 PM PLASTIC PRODUCTION MACHINE SETTER Gender Identity Female 11/10/2021 3:09 PM CDT Sexual Orientation Straight 11/10/2021 3: 09 PM CDT documented as of this encounter Plan of Treatment Upcoming Encounters Date Type Department Care Team (Late Contact Info) Description 09/25/2024 11:30 AM PLASTIC PRODUCTION MACHINE SETTER Appointment [facility] [address] [place] [address] Roberta Alex MD [address] [place] [address] 09/25/2024 11:40 AM PLASTIC PRODUCTION MACHINE SETTER Office Visit [facility] [address] [place] [address] Roberta Alex MD [address] [place] [address] documented as of this encounter Visit Diagnoses Diagnosis Derangement of lateral meniscus Derangement of lateral meniscus, unspecified documented in this encounter
--- OUTSIDE RECORDS SUMMARY | 2024-07-11 05:44 | XMS_ITS | Encounter Summary ---
Author Organization [facility] Address [address] [place] [address]. [place] [address] [place] [address] Care Team Providers Care Credit Authorizer Name Role Phone Alejandro Blevins MD Primary Care Provider [phone] Reason for Referral * Imaging (Routine) - Closed Specialty Diagnoses / Procedures Referred By Contac t Referred To Contact RADIOLOGY Diagnoses Hepatitis C virus infection without hepatic coma Thrombocytopenia affecting (CMS/HCC HHS/HCC) Transaminitis Procedures US ABD LIMITED [place] [address] [place] [address] Phone: tel: Referral ID Status Reason Start Date Expiration Date Visits Re quested Visits Authorized [id number] Closed 12/19/2019 01/18/2021 1 1 Encounter Details Date Type Department Care Team (Late st Contact Info) Description 12/19/2019 Orders Only [facility] [address] [place] [id number] Tejinder Garcia, [facility] Social History Tobacco Use Types Packs/Day Years Used Date Smoking Tobacco: Never Assessed Comments Yes Sex and Gender Information Value Date Recorded Sex Assigned at Not on file Legal Sex Female 11:30 PM HONING MACHINE OPERATOR PRODUCTION Gender Identity Female 11/10/2021 3:09 PM CDT [...] st Contact Info) Description 09/25/2024 11:30 AM HONING MACHINE OPERATOR PRODUCTION Appointment [facility] [address] [place] [address] Roberta Alex MD [address] [place], [place] [address] 09/25/2024 11:40 AM HONING MACHINE OPERATOR PRODUCTION Office Visit [facility] [place] [address] Roberta Alex MD [address] [place], [place] [address] documented as of this encounter Results * INTRINSIC FACTOR ANTIBODY (12/28/2019 10:32 AM CDT) INTRINSIC FACTOR BLOCK AB Negative Negative 12/30/2019 6:59 PM CDT [facility] Comment: For additional information, please refer to http://education.[employer]/faq/IFAB (This link is being provided for informational/ educational purposes only.) Test Performed by Josie Quintana, [employer] [place], [address] [place] [address] Hank Landin M.D., Ph.D., Director of Laboratories , [place] [id number] 12/28/2019 10:3 2 AM CDT us Roberta Alex MD LABORATORY Final Result [facility] [address] [place] [address], * US ABD LIMITED (12/26/2019 8:46 AM CDT) Anatomical Region Laterality Modality Abdomen Ultrasound 12/26/2019 9:07 AM CDT Impressions 12/26/2019 9:09 AM CDT IMPRESSION: Unremarkable. Interpreted By: Bhupendra Nuñez, 12/26/2019 9:07 AM Narrative 12/26/2019 9:09 AM CDT Examination: Ultrasound of the liver. Exam time: 0815 hours. Clinical history: Hepatitis C. Thrombocytopenia. Comparison: 08/14/2014; CT of the abdomen and pelvis, 09/16/2014. Technique: Grayscale and color Doppler images including spectral analysis. Findings: The gallbladder appears unremarkable. There are no gallstones. Wall thickness appears normal. There is no pericholecystic fluid. Sonographic Jorgensen sign is reported as negative. There is no intra or extrahepatic biliary ductal dilatation. The common duct measures 3 mm. Sections through the liver are unremarkable with normal-appearing color flow and spectrum documented in the portal vein on Doppler. Limited sections through the right kidney are unremarkable. No free fluid is seen. Procedure Note Bhupendra Nuñez MD - 12/26/2019 Examination: Ultrasound of the liver. Exam time: 0815 hours. Clinical history: Hepatitis C. Thrombocytopenia. Comparison: 08/14/2014; CT of the abdomen and pelvis, 09/16/2014. Technique: Grayscale and color Doppler images including spectralanalysis. Findings: The gallbladder appears unremarkable. There are no gallstones. Wall thickness appears normal. There is no pericholecystic fluid. Sonographic Jorgensen sign is reported as negative. There is no intra or extrahepatic biliary ductal dilatation. The common duct measures 3 mm. Sections through the liver are unremarkable with normal-appearing color flow and spectrum documented in the portal vein on Doppler. Limited sections through the right kidney are unremarkable. No free fluid isseen. IMPRESSION: Unremarkable. Interpreted By: Bhupendra Nuñez, 12/26/2019 9:07 AM Roberta Alex MD ULTRASOUND Final Result documented in this encounter Visit Diagnoses Diagnosis Hepatitis C virus infection without hepatic coma- Primary Thrombocytopenia affecting (CMS/HCC HHS/HCC) Transaminitis Nonspecific elevation of levels of transaminase or lactic acid dehydrogenase (LDH) Thrombocytopenia affecting (CMS/HCC HHS/HCC) Hepatitis C virus infection without hepatic coma Transaminitis Nonspecific elevation of levels of transaminase or lactic acid dehydrogenase (LDH) documented in this encounter Care Teams Credit Authorizer Relationship Specialty Start Date End Date Alejandro Blevins MD PCP - General FAMILY PRACTICE 12/10/19 documented as of this encounter
--- OUTSIDE RECORDS SUMMARY | 2024-07-11 05:44 | XMS_ITS | Encounter Summary ---
Author Organization [facility] Address [address] [place] [address]. [place] [address] [place] [address] Care Team Providers Care Human Resources Assistant Manager Name Role Phone Alejandro Blevins MD Primary Care Provider [phone] Reason for Visit * Reason Onset Date Comments Lab Results 02/12/2020 Encounter Details Date Type Department Care Team (Late st Contact Info) Description 02/12/[address] [place] [address] Kamilah Thompson cook pressure Results Social History Tobacco Use Types Packs/Day Years Used Date Smoking Tobacco: Every Day Smokeless Tobacco: Never Comments Yes Sex and Gender Information Value Date Recorded Sex Assigned at Not on file Legal Sex Female 11:30 PM SAUSAGE GRINDER Gender Identity Female 11/10/2021 3:09 PM CDT Sexual Orientation Straight 11/10/2021 3: 09 PM CDT COVID-19 Exposure Response Date Recorded In the last month, have you been in contact with someone who was confirmed or suspected to have Coronavirus / COVID-19? No / Unsure 02/05/2020 11:20 AM CDT documented as of this encounter Progress Notes * Kamilah Thompson RN - 02/12/2020 3:53 PM CDT Patient is aware per Dr. Alex request, iron infusions indicated. Appointments scheduled. * Kamilah Thompson RN - 02/12/2020 3:53 PM CDT ----- Message from Roberta Alex MD sent at 02/07/2020 10:45 AM CDT ----- Regarding: RE: IV Iron Oh good. Thanks much! ----- Message ----- From: Kamilah Thompson RN Sent: 02/07/2020 9:33 AM CDT To: Kitty Elizondo RN, Tejinder Garcia CMA, # Subject: RE: IV Iron Her authorization is still pending with [facility] as of this morning, but I have her on my radar to follow. I'll add labs once we know when she is coming. Thanks! ----- Message ----- From: Roberta Alex MD Sent: 02/07/2020 9:01 AM CDT To: Kitty Elizondo RN, Tejinder Garcia CMA, # Subject: IV Iron Left msg with her mother on Tuesday- that she needs IV Venofer x 4 doses. Has she returned our call? She needs to be followed up closely. Also plz check B12 and folic acid when she come for iron infusions. Thank you documented in this encounter Plan of Treatment Upcoming Encounters Date Type Department Care Team (Late st Contact Info) Description 09/25/2024 11:30 AM SAUSAGE GRINDER Appointment [facility] [address] [place] [address] Roberta Alex MD [address] [place] [address] 09/25/2024 11:40 AM SAUSAGE GRINDER Office Visit [facility] [address] [place] [address] Roberta Alex MD [address] [place] [address] documented as of this encounter Visit Diagnoses Not on filedocumented in this encounter Care Teams Human Resources Assistant Manager Relationship Specialty Start Date End Date Alejandro Blevins MD PCP - General FAMILY PRACTICE 12/10/19 documented as of this encounter
--- OUTSIDE RECORDS SUMMARY | 2024-07-11 05:44 | XMS_ITS | Encounter Summary ---
Author Organization [facility] Address [address] [place] [address]. [place] [address] [place] [address] Care Team Providers Care Underwater Hunter Trapper Name Role Phone Alejandro Blevins MD Primary Care Provider [phone] Reason for Visit * Reason Comments Follow Up Lab Results Encounter Details Date Type Department Care Team (Late st Contact Info) Description 04/29/2020 9:00 AM CDT Office Visit [address] [place] [address] Roberta Alex MD [address] [place] [address] Follow Up; Lab Results Social History Tobacco Use Types Packs/Day Years Used Date Smoking Tobacco: Every Day Smokeless Tobacco: Never Comments Yes Sex and Gender Information Value Date Recorded Sex Assigned at Not on file Legal Sex Female 11:30 PM HUMAN RESOURCE OFFICER Gender Identity Female 11/10/2021 3:09 PM CDT [...] Sign Reading Time Taken Comments Blood Pressure 146/96 04/29/2020 9:40 AM CDT Pulse 96 04/29/2020 9:40 AM CDT Temperature 36.5 ??C (97.7 ??F) 04/29/2020 9:40 AM CD T Respiratory Rate 18 04/29/2020 9:40 AM CDT Oxygen Saturation - - Inhaled Oxygen Concentration - - Weight 64.3 kg (141 lb 12.1 oz) 04/29/2020 9:40 AM CDT Height 160 cm (5' 3 ) 04/29/2020 9:40 AM CDT Body Mass Index 25.11 04/29/2020 9:40 AM CDT documented in this encounter Progress Notes * Roberta Alex MD - 04/29/2020 9:00 AM CDT Hematology/Oncology Note Identifying Data Hillary Smalls is a 29-year-old female Reason for Visit: Follow Up and Lab Results History of Present Illness: Hillary Smalls is a 29-year-old female who is been following with us for severe iron deficiency, B12 deficiency noted in 11/2019 when she was diagnosed to be with twins at 20 weeks. Work-up for other causes of anemia were negative including hemolytic work-up, Hgb electrophoresis,MARQUITA. She had no care prior to admission. She followed closely with laborer high density press- psychology assistant Dr Machelle Costello at [facility]. Patient has history of chronic thrombocytopenia and iron deficiency and followed with [facility] car coupler Dr. Dick Bonilla 5 years ago. Since her last follow-up on 03/25 she had a significant hospitalization,had PPH and delivered her twins. She did not show up for lab only appointment on 04/09 and 04/15 with us. She was hospitalized on 04/17 with vaginal bleeding, with platelet count of 34K and was noted to have placental abruption related PPH, hemorrhagic shock, requiring intubation. Twins, a boy and a girl who are doing well. She received 7 units PRBC, 4 units FFP, 2 units platelets, 2 units cryoprecipitate. She received Solu-Medrol 1 g IV for 3 days, IVIG with good improvement in platelet counts. She also received IV Venofer 300 mg x 3 days, folic acid, B12 supplements. Today she reports doing okay. She still notices mild vaginal bleeding but not as heavy as clots. Itis a little more than spotting. Denied any shortness of breath, cough, mucosal bleeding otherwise. She is yet to follow-up with LASER BEAM COLOR SCANNER OPERATOR this week for wound check ROS General: Fatigue as above Skin: No [...] file Gets together: Not on file Attends church service: Not on file Active member of [...] Outpatient Medications Medication Sig Dispense Refill ??? ealrthv-nfagpxlldpziz-wrlhjsvz 250-250-65 MG tablet Take 1 tablet by [...] Height: 5' 3 (1.6 m) , Weight: 64.3 kg (141 lb 12.1 oz) , BSA (Calculated - sq m): 1.69 sq meters , BP: (!) 146/96 , Temp: 97.7 ??F (36.5 ??C) , Pulse: 96 , Resp: 18 Physical Exam Constitutional Appears [...] ABS. NEUTROPHILS Date Value Ref Range Status 04/29/2020 7.51 1.60 - 8.30 x10'3/uL Final WBC Date Value Ref Range Status 04/29/2020 10.5 4.5 - 10.8 x10'3/uL Final HGB Date Value Ref Range Status 04/29/2020 11.3 (L) 12.0 - 16.0 G/DL Final HCT Date Value Ref Range Status 04/29/2020 36.2 36.0 - 47.0 % Final PLT Date Value Ref Range Status 04/29/2020 53 (L) 150 - 350 x10'3/uL Final Assessment and Plan 1. Chronic thrombocytopenia: Secondary to untreated HCV infection, immune mediated, polysubstance abuse, nutritional deficiencies. She is s/p Solu-Medrol 1 g x 3 days [last dose 04/20], IVIG 1 g/kg x 2 days with good response, normalization of platelet counts. PRINT COLOR MATCHER team requested to hold off dexamethasone due to poor wound healing. -Today platelet count at 53K with mild vaginal bleeding. Will repeat CBC in 3 days and if PLT <50K and bleeding, will consider at least low dose steroids or TPO agents after 6 weeks . She is not breast feeding. 2. Iron deficiency anemia, B12 deficiency, folic acid deficiency: -Repeat iron studies. She received multiple PRBC, IV Venofer 300 mg x 3 days. Continue oral iron tablets. -S/p B12 1000 mcg IM daily for 7 days. Currently on B12 1000 MCG p.o. Daily. -Continue folic acid supplements 1 g p.o. daily. 3. Recent placental abruption, hemorrhagic hypovolemic shock, severe anemia: Resolved with aggressive resuscitation 4. Chronic HCV infection: Needs follow-up with GI once she remains abstinent from polysubstance abuse for 6 months. 5. Polysubstance abuse, IVDA, UDS positive for amphetamine. Strongly advised on cessation. 6. Positive Anti - Cardiolipin IGM with negative Anti B2 GP IGG/IGM , LA test negative, MARQUITA negative. On low dose ASA 81mg. No indication for anticoagulation given thrombocytopenia. Less likely antiphophopholipid syndrome. Will repeat again in 3 months. If persistently elevated, will need to address APLS RTC in 2 weeks. Emphasized importance with compliance to follow ups. CBC on 05/02 Time Spent: Approximately 25 minutes was spent in direct patient consultation and the majority of that time (>50%) was spent on counseling and coordination of care. Roberta Alex MD CC: Alejandro Blevins MD documented in this encounter Plan of Treatment Upcoming Encounters Date Type Department Care Team (Late st Contact Info) Description 09/25/2024 11:30 AM HUMAN RESOURCE OFFICER Appointment [address] [place] [address] Roberta Alex MD [address] [place] [address] 09/25/2024 11:40 AM HUMAN RESOURCE OFFICER Office Visit [facility] [address] [place] [address] [place] [address] Roberta Alex MD [address] [place] [address] documented as of this encounter Results * (ABNORMAL) CBC W/DIFF AUTOMATED (05/13/2020 11:30 AM CDT) WBC 9.4 4.5 - 10.8 x10'3/uL 05/13/2020 12:05 PM CDT [facility] RBC 4.24 4.10 - 5.40 x10'6/uL 05/13/2020 12:05 PM CDT [facility] HGB 12.2 12.0 - 16.0 G/DL 05/13/2020 12:05 PM CDT [facility] HCT 39.3 36.0 - 47.0 % 05/13/2020 12:05 PM CDT [facility] MCV 92.7 78.0 - 100.0 FL 05/13/2020 12:05 PM CDT [facility] MCH 28.8 27.0 - 31.0 PG 05/13/2020 12:05 PM CDT [facility] MCHC 31.0(L) 33.0 - 36.0 G/DL 05/13/2020 12:05 PM CDT [facility] RDW 21.2(H) 11.5 - 14.5 % 05/13/2020 12:05 PM CDT [facility] PLT 62(L) 150 - 350 x10'3/uL 05/13/2020 12:05 PM CDT [facility] MPV RESULTS NOT AVAILABLE 7.4 - 10.4 FL 05/13/2020 12:05 PM CDT [facility] DIFFERENTIAL COMMENT NORMAL REFERENCE RANGE NOT ESTABLISHED FOR THE PROPORTIONAL LEUKOCYTE DIFFERENTIAL. 05/13/2020 12:05 PM CDT [facility] SEG NEUTROPHILS 69.5 % 0 12:06 PM CDT [facility] LYMPHOCYTES 22.2 % 05/13/2020 12:06 PM CDT [facility] MONOCYTES 4.3 % 05/13/2020 12:06 PM CDT [facility] EOSINOPHILS 3.1 % 05/13/2020 12:06 PM CDT [facility] BASOPHILS 0.5 % 05/13/2020 12:06 PM CDT [facility] IMMATURE GRANS % 0.4 % 05/13/20 12:06 PM CDT [facility] NRBC 0.0 % 05/13/2020 12:06 PM CDT [facility] ABS. NEUTROPHILS 6.53 1.60 - 8.30 x10'3/uL 05/13/2020 12:06 PM CDT [facility] ABS. LYMPHOCYTES 2.09 0.80 - 4.70 x10'3/uL 05/13/2020 12:06 PM CDT [facility] ABS. MONOCYTES 0.40 0.00 - 1.50 x10'3/uL 05/13/2020 12:06 PM CDT [facility] ABS. EOSINOPHILS 0.29 0.00 - 0.40 x10'3/uL 05/13/2020 12:06 PM CDT [facility] ABS. BASOPHILS 0.05 0.00 - 0.20 x10'3/uL 05/13/2020 12:06 PM CDT [facility] ABS. IMMATURE GRANULOCYTES 0.04(H) 0.00 - 0.03 x10'3/uL 05/13/2020 12:06 PM CDT [facility] ABS. NUCLEATED RBC'S 0.00 0.00 x10'3/uL 05/13/2020 12:06 PM CDT [facility] PLT MORPH. DECREASED 05/13/2020 12:06 PM CDT [facility] RBC MORPHOLOGY 1+ 05/13/2020 12:06 PM CDT [facility] Comment:POIKILOCYTOSIS 05/13/2020 11:3 0 AM CDT us Roberta Alex MD LABORATORY Final Result Performing Organization Address City/[facility] Co de Phone Number [facility] [address] [place] [address], * (ABNORMAL) FERRITIN (04/29/2020 9:22 AM CDT) FERRITIN 498.4(H) 8 - 252 NG/ML 04/29/2020 10:20 AM CDT [facility] 04/29/2020 9:22 AM CDT us Roberta Alex MD LABORATORY Final Result Performing Organization Address [facility] Co de Phone Number [facility] [address] [place] [address], * IRON SATURATION PNL (FE/TIBC/SAT) (04/29/2020 9:22 AM CDT) IRON 72 50 - 170 MCG/DL 04/29/2020 9:59 AM CDT [facility] IRON BINDING CAPACITY 422 250 - 450 MCG/DL 04/29/2020 9:59 AM CDT [facility] IRON SATURATION 17 % 0 9:59 AM CDT [facility] Comment:REFERENCE RANGE NOT ESTABLISHED 04/29/2020 9:22 AM CDT us Roberta Alex MD LABORATORY Final Result Performing Organization Address [facility] Co de Phone Number [facility] [address] [place] [phone], * (ABNORMAL) CBC W/DIFF AUTOMATED (04/29/2020 9:22 AM CDT) WBC 10.5 4.5 - 10.8 x10'3/uL 04/29/2020 9:42 AM CDT [facility] RBC 3.79(L) 4.10 - 5.40 x10'6/uL 04/29/2020 9:42 AM CDT [facility] HGB 11.3(L) 12.0 - 16.0 G/DL 04/29/2020 9:42 AM CDT [facility] HCT 36.2 36.0 - 47.0 % 04/29/2020 9:42 AM CDT [facility] MCV 95.5 78.0 - 100.0 FL 04/29/2020 9:42 AM CDT [facility] MCH 29.8 27.0 - 31.0 PG 04/29/2020 9:42 AM CDT [facility] MCHC 31.2(L) 33.0 - 36.0 G/DL 04/29/2020 9:42 AM CDT [facility] RDW 27.0(H) 11.5 - 14.5 % 04/29/2020 9:42 AM CDT [facility] PLT 53(L) 150 - 350 x10'3/uL 04/29/2020 9:42 AM CDT [facility] MPV RESULTS NOT AVAILABLE 7.4 - 10.4 FL 04/29/2020 9:42 AM CDT [facility] DIFFERENTIAL COMMENT NORMAL REFERENCE RANGE NOT ESTABLISHED FOR THE PROPORTIONAL LEUKOCYTE DIFFERENTIAL. 04/29/2020 9:42 AM CDT [facility] SEG NEUTROPHILS 71.5 % 0 9:54 AM CDT [facility] LYMPHOCYTES 17.2 % 04/29/2020 9:54 AM CDT [facility] MONOCYTES 5.9 % 04/29/2020 9:54 AM CDT [facility] EOSINOPHILS 1.9 % 04/29/2020 9:54 AM CDT [facility] BASOPHILS 0.4 % 04/29/2020 9:54 AM CDT [facility] IMMATURE GRANS % 3.1 % 04/29/20 20 9:54 AM CDT [facility] NRBC 0.3 % 04/29/2020 9:54 AM CDT [facility] ABS. NEUTROPHILS 7.51 1.60 - 8.30 x10'3/uL 04/29/2020 9:54 AM CDT [facility] ABS. LYMPHOCYTES 1.81 0.80 - 4.70 x10'3/uL 04/29/2020 9:54 AM CDT [facility] ABS. MONOCYTES 0.62 0.00 - 1.50 x10'3/uL 04/29/2020 9:54 AM CDT [facility] ABS. EOSINOPHILS 0.20 0.00 - 0.40 x10'3/uL 04/29/2020 9:54 AM CDT [facility] ABS. BASOPHILS 0.04 0.00 - 0.20 x10'3/uL 04/29/2020 9:54 AM CDT [facility] ABS. IMMATURE GRANULOCYTES 0.33(H) 0.00 - 0.03 x10'3/uL 04/29/2020 9:54 AM CDT [facility] ABS. NUCLEATED RBC'S 0.03(H) 0.00 x10'3/uL 04/29/2020 9:54 AM CDT [facility] PLT MORPH. DECREASED 04/29/2020 9:54 AM CDT [facility] RBC MORPHOLOGY 1+ 04/29/2020 9:54 AM CDT [facility] Comment:ANISOCYTOSIS 04/29/2020 9:22 AM CDT Roberta Alex MD LABORATORY Final Result [facility] [address] [place] [address], documented in this encounter Visit Diagnoses Diagnosis Iron deficiency anemia due to chronic blood loss- Primary Iron deficiency anemia secondary to blood loss (chronic) Chronic ITP (idiopathic thrombocytopenia) ([facility]) Immune thrombocytopenic purpura Iron deficiency anemia secondary to inadequate dietary iron intake Polysubstance abuse ([facility]) Other, mixed, or unspecified nondependent drug abuse, unspecified Other dietary vitamin B12 deficiency anemia documented in this encounter Care Teams Underwater Hunter Trapper Relationship Specialty Start Date End Date Alejandro Blevins MD PCP - General FAMILY PRACTICE 12/10/19 documented as of this encounter
--- OUTSIDE RECORDS SUMMARY | 2024-07-11 05:44 | XMS_ITS | Encounter Summary ---
Author Organization [facility] Address [facility] [facility] [place] [address] [place] [address] Care Team Providers Care Dynamics Ax Consultant Name Role Phone Alejandro Blevins MD Primary Care Provider [phone] Encounter Details Date Type Department Care Team (Latest Contact Info) Description 04/29/2020 9:12 AM CDT - 04/29/2020 11:59 PM CDT Hospital Encounter [address] [place] [address] Roberta Alex MD [address] [place], [place] [phone] Discharge Disposition: Home or Self Care (Routine Discharge) Social History Tobacco Use Types Packs/Day Years Used Date Smoking Tobacco: Every Day Smokeless Tobacco: Never Comments Yes Sex and Gender Information Value Date Recorded Sex Assigned at Not on file Legal Sex Female 11:30 PM DROP HAMMER PILE DRIVER OPERATOR Gender Identity Female 11/10/2021 3:09 PM [...] st Contact Info) Description 09/25/2024 11:30 AM DROP HAMMER PILE DRIVER OPERATOR [facility]ment [facility] [place] [address] Roberta Alex MD [address] [place] [address] 09/25/2024 11:40 AM DROP HAMMER PILE DRIVER OPERATOR Office Visit [facility] [place] [address] Roberta Alex MD [address] [place] [phone] documented as of this encounter Procedures Procedure Name Priority Date/Time Associated Diagnosis Comments IRON SAT PANEL (IRON,IBC,%SAT) Routine 04/29/2020 9:22 AM CDT Anemia Thrombocytopenia affecting ([facility] HHS/HCC) Iron deficiency anemia secondary to inadequate dietary iron intake CBC W/DIFF AUTOMATED Routine 04/29/2020 9:22 AM CDT Anemia Thrombocytopenia affecting (CMS/HCC HHS/HCC) Iron deficiency anemia secondary to inadequate dietary iron intake FERRITIN Routine 04/29/2020 9:22 AM CDT Anemia Thrombocytopenia affecting ([facility]/HCC HHS/HCC) Iron deficiency anemia secondary to inadequate dietary iron intake documented in this encounter Results * (ABNORMAL) FERRITIN (04/29/2020 9:22 AM CDT) FERRITIN 498.4(H) 8 - 252 NG/ML 04/29/2020 10:20 AM CDT [facility] 04/29/2020 9:22 AM CDT Roberta Alex MD LABORATORY Final Result Performing Organization Address [facility] Co de Phone Number [facility] [address] [place] [address], * IRON SATURATION PNL (FE/TIBC/SAT) (04/29/2020 9:22 AM CDT) IRON 72 50 - 170 MCG/DL 04/29/2020 9:59 AM CDT [facility] IRON BINDING CAPACITY 422 250 - 450 MCG/DL 04/29/2020 9:59 AM CDT [facility] IRON SATURATION 17 % 0 9:59 AM CDT [facility] Comment:REFERENCE RANGE NOT ESTABLISHED 04/29/2020 9:22 AM CDT Roberta Alex MD LABORATORY Final Result Performing Organization Address [facility] de Phone Number [facility] [address] [place] [address], * (ABNORMAL) CBC W/DIFF AUTOMATED (04/29/2020 9:22 AM CDT) WBC 10.5 4.5 - 10.8 x10'3/uL 04/29/2020 9:42 AM CDT [facility] RBC 3.79(L) 4.10 - 5.40 x10'6/uL 04/29/2020 9:42 AM CDT [facility] HGB 11.3(L) 12.0 - 16.0 G/DL 04/29/2020 9:42 AM CDT [facility] HCT 36.2 36.0 - 47.0 % 04/29/2020 9:42 AM CDT [facility] MCV 95.5 78.0 - 100.0 FL 04/29/2020 9:42 AM CDT [facility] MCH 29.8 27.0 - 31.0 PG 04/29/2020 9:42 AM CDT [facility] MCHC 31.2(L) 33.0 - 36.0 G/DL 04/29/2020 9:42 AM CDT [facility] RDW 27.0(H) 11.5 - 14.5 % 04/29/2020 9:42 AM CDT [facility] PLT 53(L) 150 - 350 x10'3/uL 04/29/2020 9:42 AM CDT [facility] MPV RESULTS NOT AVAILABLE 7.4 - 10.4 FL 04/29/2020 9:42 AM CDT [facility] DIFFERENTIAL COMMENT NORMAL REFERENCE RANGE NOT ESTABLISHED FOR THE PROPORTIONAL LEUKOCYTE DIFFERENTIAL. 04/29/2020 9:42 AM CDT [facility] SEG NEUTROPHILS 71.5 % 0 9:54 AM CDT [facility] LYMPHOCYTES 17.2 % 04/29/2020 9:54 AM CDT [facility] MONOCYTES 5.9 % 04/29/2020 9:54 AM CDT [facility] EOSINOPHILS 1.9 % 04/29/2020 9:54 AM CDT [facility] BASOPHILS 0.4 % 04/29/2020 9:54 AM CDT [facility] IMMATURE GRANS % 3.1 % 04/29/20 20 9:54 AM CDT [facility] NRBC 0.3 % 04/29/2020 9:54 AM CDT [facility] ABS. NEUTROPHILS 7.51 1.60 - 8.30 x10'3/uL 04/29/2020 9:54 AM CDT [facility] ABS. LYMPHOCYTES 1.81 0.80 - 4.70 x10'3/uL 04/29/2020 9:54 AM CDT [facility] ABS. MONOCYTES 0.62 0.00 - 1.50 x10'3/uL 04/29/2020 9:54 AM CDT [facility] ABS. EOSINOPHILS 0.20 0.00 - 0.40 x10'3/uL 04/29/2020 9:54 AM CDT [facility] ABS. BASOPHILS 0.04 0.00 - 0.20 x10'3/uL 04/29/2020 9:54 AM CDT [facility] ABS. IMMATURE GRANULOCYTES 0.33(H) 0.00 - 0.03 x10'3/uL 04/29/2020 9:54 AM CDT [facility] ABS. NUCLEATED RBC'S 0.03(H) 0.00 x10'3/uL 04/29/2020 9:54 AM CDT [facility] PLT MORPH. DECREASED 04/29/2020 9:54 AM CDT [facility] RBC MORPHOLOGY 1+ 04/29/2020 9:54 AM CDT [facility] Comment:ANISOCYTOSIS 04/29/2020 9:22 AM CDT Roberta Alex MD LABORATORY Final Result [facility] [address] [place] [address], documented in this encounter Visit Diagnoses Diagnosis Anemia Anemia, unspecified Thrombocytopenia affecting (CMS/HCC HHS/HCC) Iron deficiency anemia secondary to inadequate dietary iron intake documented in this encounter Care Teams Dynamics Ax Consultant Relationship Specialty Start Date End Date Alejandro Blevins MD PCP - General FAMILY PRACTICE 12/10/19 documented as of this encounter
--- OUTSIDE RECORDS SUMMARY | 2024-07-11 05:44 | XMS_ITS | Encounter Summary ---
Author Organization [facility] Address [address] [place] [address]. [place] [address] [place] [address] Care Team Providers Care Repairer Welding Systems And Equipment Name Role Phone Alejandro Blevins MD Primary Care Provider [phone] Reason for Visit * Reason Comments Injection Infusion Therapy * Treatment/Therapy Plan Authorization (Routine) - Closed Specialty Diagnoses / Procedures Referred By Contac t Referred To Contact Diagnoses Iron deficiency anemia secondary to inadequate dietary iron intake Procedures IRON SUCROSE INJ, 20 MG Roberta Alex MD [address] [place] [address] Phone: tel: fax: [facility] [place] [address] Phone: tel: Referral ID Status Reason Start Date Expiration Date Visits Re quested Visits Authorized [id number] Closed 12/19/2019 04/23/2020 1 3 Encounter Details Date Type Department Care Team (Latest Contact Info) Description 01/03/2020 10:00 AM CDT - 01/03/2020 11:59 PM CDT Hospital Encounter [facility] [place] [address] Roberta Alex MD [address] [place] [phone] Injection; Infusion Therapy Discharge Disposition: Home or Self Care (Routine Discharge) Social History Tobacco Use Types Packs/Day Years Used Date Smoking Tobacco: Every Day Smokeless Tobacco: Never Tobacco Cessation:Ready to Q uit: No Comments Yes Sex and Gender Information Value Date Recorded Sex Assigned at Not on file Legal Sex Female 11:30 PM ADULT SCHOOL TEACHER Gender Identity Female 11/10/2021 3:09 PM CDT Sexual Orientation Straight 11/10/2021 3: 09 PM CDT COVID-19 Exposure Response Date Recorded In the last month, have you been in contact with someone who was confirmed or suspected to have Coronavirus / COVID-19? No / Unsure 01/03/2020 10:12 AM CDT documented as of this encounter Last Filed Vital Signs Vital Sign Reading Time Taken Comments Blood Pressure 103/67 01/03/2020 10:29 AM CDT Pulse 97 01/03/2020 10:29 AM CDT Temperature 36.3 ??C (97.4 ??F) 01/03/2020 1 0:29 AM CDT Respiratory Rate 18 01/03/2020 10:2 9 AM CDT Oxygen Saturation 100% 01/03/2020 10: 29 AM CDT Inhaled Oxygen Concentration - - Weight 65.7 kg (144 lb 13.5 oz) 020 10:29 AM CDT Height - - Body Mass Index 25.66 12/18/2019 1:02 PM CDT documented in this encounter Medications at Time of Discharge aspirin-acetamino phen-caffeine 250-250-65 MG tablet Take 1 tablet by mouth every 6 (six) hours as needed for Pain. 07/29/2020 ferrous sulfate, 65 mg elemental, 325 (65 FE) MG tablet Take 325 mg by mouth daily. 12/09/2019 07/29/2020 folic acid 1 MG tablet Take 1 mg by mouth daily. 12/09/2019 07/08/2020 documented as of this encounter Progress Notes * Cecilia Healy - 01/04/2020 1:15 PM CDTEncounter addended by: Cecilia Healy on: 01/04/2020 1:15 PM Actions taken: Charge Capture section accepted * Kitty Leon RN - 01/03/2020 10:21 AM CDT PATIENT ASSESSMENT: Admitted via: Ambulatory Admitted from: Home Planned procedure: Scheduled venofer andB12 injection Patient information verified by KITTY LEON RN. Barriers to learning: None Patient identity confirmed - Name and date of , Allergies Verified and Family/Significant other present LOC: Alert Emotional: Calm Motor Activity: Gait steady Respiratory: Regular and even Circulatory: NA Nutrition: Tolerated diet well Elimination: Voiding NURSING DIAGNOSIS: Risk of injury GOALS: Patient will be free from signs/symptoms of physical injury documented in this encounter Plan of Treatment Upcoming Encounters Date Type Department Care Team (Late st Contact Info) Description 09/25/2024 11:30 AM ADULT SCHOOL TEACHER Appointment [facility] [address] [facility] [place] [address] Roberta Alex MD [address] [place] [address] 09/25/2024 11:40 AM ADULT SCHOOL TEACHER Office Visit [facility] [address] [place] [address] Roberta Alex MD [address] [place] [address] documented as of this encounter Visit Diagnoses Diagnosis Iron deficiency anemia secondary to inadequate dietary iron intake- Primary Other dietary vitamin B12 deficiency anemia documented in this encounter Administered Medications Inactive Administered Medications - up to 3 most recent administrations Medication Order MAR Action Action Date Dose Rate Site cyanocobalamin (B-12) injection 1,000 mcg 1,000 mcg, Intramuscular, Once, 1 dose, On Brittni 01/03/20 at 1045Indications:Other dietary vitamin B12 deficiency anemia Given 01/03/2020 11:41 AM CDT 1,000 mcg Left Deltoid iron sucrose (VENOFER) 200 mg in sodium chloride 0.9 % 100 mL IVPB 200 mg, Intravenous, at 400 mL/hr, Once, 1 dose, On Brittni 01/03/20 at 1045Indications:Iron deficiency anemia secondary to inadequate dietary iron intake New Bag 01/03/2020 10:36 AM CDT 200 mg 100 mL/hr documented in this encounter Care Teams Repairer Welding Systems And Equipment Relationship Specialty Start Date End Date Alejandro Blevins MD PCP - General FAMILY PRACTICE 12/10/19 documented as of this encounter
--- OUTSIDE RECORDS SUMMARY | 2024-07-11 05:44 | XMS_ITS | Encounter Summary ---
Author Organization [facility] Address [address] [place] [address]. [place] [address] [place] [address] Care Team Providers Care Cotton Ball Bagger Name Role Phone Alejandro Blevins MD Primary Care Provider [phone] Reason for Visit * Reason Comments Follow Up Lab Results Encounter Details Date Type Department Care Team (Late st Contact Info) Description 03/25/2020 11:20 AM CDT Office Visit [address] [place] [address] Rboerta Alex MD [address] [place] [address] Follow Up; Lab Results Social History Tobacco Use Types Packs/Day Years Used Date Smoking Tobacco: Every Day Smokeless Tobacco: Never Comments Yes Sex and Gender Information Value Date Recorded Sex Assigned at Not on file Legal Sex Female 11:30 PM WATER WELL DRILLER Gender Identity Female 11/10/2021 3:09 PM CDT [...] Sign Reading Time Taken Comments Blood Pressure 126/81 03/25/2020 11:53 AM CDT Pulse 106 03/25/2020 11:53 AM CDT Temperature 36.9 ??C (98.4 ??F) 03/25/2020 11:53 AM C DT Respiratory Rate 20 03/25/2020 11:53 AM CDT Oxygen Saturation - - Inhaled Oxygen Concentration - - Weight 74.9 kg (165 lb 2 oz) 03/25/2020 11:53 AM CDT Height 160 cm (5' 3 ) 03/25/2020 11:53 AM CDT Body Mass Index 29.25 03/25/2020 11:53 AM CDT documented in this encounter Progress Notes * Roberta Alex MD - 03/25/2020 11:20 AM CDT Hematology/Oncology Note Identifying Data Hillary Smalls is a 29-year-old female Reason for Visit: Follow Up and Lab Results Diagnosis: 1. Severe iron deficiency anemia-ferritin 2/T sat 3 in 11/2019 2. 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 Vitamin B12 deficiency: B12 171 in 11/2019. 4. Twin gestation, poor care, IVDU, polysubstance abuse (positive for amphetamines in 01/2020), current smoker 5. Noncompliant Current therapy: 1. IV Venofer. Received 3 doses in 12/2019 and 4 doses ( 02/15/2020- 03/14/2020) 2. Vitamin B12 1000 MCG weekly subcu injections in 01/12/2020 and 02/11/2020. 3. Folic acid supplements History of Present Illness: Hillary Smalls is a 29-year-old female who is been following with us for severe iron deficiency, B12 deficiency noted in 11/2019 when she was diagnosed to be with twins at 20 weeks. Work-up for other causes of anemia were negative including hemolytic work-up, Hgb electrophoresis,MARQUITA. She had no care prior to admission. She now follows closely with high school music instructor-dairy store manager Dr Machelle Costello at [facility] in [place]. Plan for IOL in mid April. Patient has history of chronic thrombocytopenia and iron deficiency and followed with [facility] telecommunications officer Dr. Dick Bonilla 5 years ago. Today she is here for follow-up. She is currently in her 3rd trimester. Continues to feel fatigued.No bleeding. Noticed right wrist pain since yesterday, attributes to bad sleeping posture, used a brace which made it worse. She is yet to follow-up with her EDUCATIONAL SPEECH LANGUAGE CLINICIAN next week. Missed her appointment last week. ROS General: Fatigue as above Skin: No [...] file Gets together: Not on file Attends restorationism service: Not on file Active member of [...] Outpatient Medications Medication Sig Dispense Refill ??? zmtmnby-kcfxuwpukdfdn-efzutlyb 250-250-65 MG tablet Take 1 tablet by [...] Height: 5' 3 (1.6 m) , Weight: 74.9 kg (165 lb 2 oz) , BSA (Calculated - sq m): 1.82 sq meters , BP: 126/81 , Temp: 98.4 ??F (36.9 ??C) , Pulse: 106 , Resp: 20 Physical Exam Constitutional Appears pale, tired in no distress. Gestation noted. Pale conjunctiva Head and Face Head and [...] ABS. NEUTROPHILS Date Value Ref Range Status 03/25/2020 6.63 1.60 - 8.30 x10'3/uL Final WBC Date Value Ref Range Status 03/25/2020 8.6 4.5 - 10.8 x10'3/uL Final HGB Date Value Ref Range Status 03/25/2020 10.8 (L) 12.0 - 16.0 G/DL Final HCT Date Value Ref Range Status 03/25/2020 34.3 (L) 36.0 - 47.0 % Final PLT Date Value Ref Range Status 03/25/2020 35 (L) 150 - 350 x10'3/uL Final Assessment and Plan 1. Severe iron deficiency anemia: Mild improvement in ferritin last visit. Hgb stable at 10.5 g/dL.Continue on oral iron supplements. Repeat iron studies in 2 weeks. 2. Chronic ITP/secondary to chronic HCV: Slow decline to 35K today without any bleeding episodes. No indication for treatment unless counts<30 K or bleeding or for safe delivery. -Depending upon the delivery route-we can consider prednisone 1 mg/kg for 2 weeks if she needs to tolerate neuraxial anesthesia for , if there is any emergency then IVIG, platelet transfusions can be given. Dexamethasone x4 days is a good consideration for and to serve for ITP treatment. She was strongly advised to follow-up with her high school teacher/GYN and also close monitoring on blood counts. 3.Vitamin B12 deficiency: Advised strong compliance with vitamin B12 oral medications. If any concern for noncompliance again, will give subcutaneous injections 4. Folate def: Poor care. Twin gestation. On vitamins and FA 1mg supplements. 5. Hx of IVDA, recent methamphetamine use, current smoker: Strongly advised on cessation. ?? 6. Hep C infection: HCV RNA strongly positive. US of liver normal. Needs to follow up with Hepatology closely 7. Positive Anti - Cardiolipin IGM with negative Anti B2 GP IGG/IGM , LA test negative, MARQUITA negative. On low dose ASA 81mg. No indication for anticoagulation given thrombocytopenia. Less likely antiphophopholipid syndrome and patient did not show up for rheumatology appointment apparently. Repeat anticardiolipin antibody pending Time Spent: Approximately 25 minutes was spent in direct patient consultation and the majority of that time (>50%) was spent on counseling and coordination of care. Roberta Alex MD CC: Alejandro Blevins MD CC: Dr Machelle Costello MD documented in this encounter Plan of Treatment Upcoming Encounters Date Type Department Care Team (Late st Contact Info) Description 09/25/2024 11:30 AM WATER WELL DRILLER Appointment [facility] [facility] [place] [address] Roberta Alex MD [address] [place] [address] 09/25/2024 11:40 AM WATER WELL DRILLER Office Visit [facility] [address] [place] [address] Roberta Alex MD [address] [place] [phone] documented as of this encounter Results * FERRITIN (04/16/2020 10:17 AM CDT) Pathologist [facility] FERRITIN 13.0 8 - 252 NG/ML 04/16/2020 10:52 AM CDT [facility] 04/16/2020 10:1 7 AM CDT Roberta Alex MD LABORATORY Final Result [facility] [address] [place] [address], * (ABNORMAL) CBC W/DIFF AUTOMATED (04/16/2020 10:17 AM CDT) [facility] WBC 8.9 4.5 - 10.8 x10'3/uL 04/16/2020 10:34 AM CDT [facility] RBC 4.29 4.10 - 5.40 x10'6/uL 04/16/2020 10:34 AM CDT [facility] HGB 11.2(L) 12.0 - 16.0 G/DL 04/16/2020 10:34 AM CDT [facility] HCT 35.8(L) 36.0 - 47.0 % 04/16/2020 10:34 AM CDT [facility] MCV 83.4 78.0 - 100.0 FL 04/16/2020 10:34 AM CDT [facility] MCH 26.1(L) 27.0 - 31.0 PG 04/16/2020 10:34 AM CDT [facility] MCHC 31.3(L) 33.0 - 36.0 G/DL 04/16/2020 10:34 AM CDT [facility] RDW 19.5(H) 11.5 - 14.5 % 04/16/2020 10:34 AM CDT [facility] PLT 33(L) 150 - 350 x10'3/uL 04/16/2020 10:34 AM CDT [facility] MPV RESULTS NOT AVAILABLE 7.4 - 10.4 FL 04/16/2020 10:34 AM CDT [facility] DIFFERENTIAL COMMENT NORMAL REFERENCE RANGE NOT ESTABLISHED FOR THE PROPORTIONAL LEUKOCYTE DIFFERENTIAL. 04/16/2020 10:34 AM CDT [facility] SEG NEUTROPHILS 70.6 % 0 10:55 AM CDT [facility] LYMPHOCYTES 19.3 % 04/16/2020 10:55 AM CDT [facility] MONOCYTES 6.8 % 04/16/2020 10:55 AM CDT [facility] EOSINOPHILS 1.6 % 04/16/2020 10:55 AM CDT [facility] BASOPHILS 0.4 % 04/16/2020 10:55 AM CDT [facility] IMMATURE GRANS % 1.3 % 04/16/20 20 10:55 AM CDT [facility] NRBC 0.2 % 04/16/2020 10:55 AM CDT [facility] ABS. NEUTROPHILS 6.28 1.60 - 8.30 x10'3/uL 04/16/2020 10:55 AM CDT [facility] ABS. LYMPHOCYTES 1.72 0.80 - 4.70 x10'3/uL 04/16/2020 10:55 AM CDT [facility] ABS. MONOCYTES 0.61 0.00 - 1.50 x10'3/uL 04/16/2020 10:55 AM CDT [facility] ABS. EOSINOPHILS 0.14 0.00 - 0.40 x10'3/uL 04/16/2020 10:55 AM CDT [facility] ABS. BASOPHILS 0.04 0.00 - 0.20 x10'3/uL 04/16/2020 10:55 AM CDT [facility] ABS. IMMATURE GRANULOCYTES 0.12(H) 0.00 - 0.03 x10'3/uL 04/16/2020 10:55 AM CDT [facility] ABS. NUCLEATED RBC'S 0.02(H) 0.00 x10'3/uL 04/16/2020 10:55 AM CDT [facility] PLT MORPH. DECREASED 04/16/2020 10:55 AM CDT [facility] RBC MORPHOLOGY 1+ 04/16/2020 10:55 AM CDT [facility] Comment:HYPOCHROMASIA 04/16/2020 10:1 7 AM CDT Roberta Alex MD LABORATORY Final Result [facility] [address] [place] [address], documented in this encounter Visit Diagnoses Diagnosis Iron deficiency anemia secondary to inadequate dietary iron intake- Primary Thrombocytopenia affecting (CMS/HCC HHS/HCC) Other dietary vitamin B12 deficiency anemia Dichorionic diamniotic twin in third trimester (HHS/HCC) Twin , antepartum documented in this encounter Care Teams Cotton Ball Bagger Relationship Specialty Start Date End Date Alejandro Blevins MD PCP - General FAMILY PRACTICE 12/10/19 documented as of this encounter
--- OUTSIDE RECORDS SUMMARY | 2024-07-11 05:44 | XMS_ITS | Encounter Summary ---
Author Organization [facility] Address [address] [facility] [place] [address] [place] [address] Care Team Providers Care Dock Operator Name Role Phone Unavailable Primary Care Provider Unavailabl e Encounter Details Date Type Department Care Team (Late Contact Info) Description 03/08/2009 Abstract [facility] [address] [place] [address] Conner Gallegos MD [address] [place] [phone] Social History Tobacco Use Types Packs/Day Years Used Date Smoking Tobacco: Never Assessed Comments Unknown Sex and Gender Information Value Date Recorded Sex Assigned at Not on file Legal Sex Female 11:30 PM GYROSCOPE TECHNICIAN Gender Identity Female 11/10/2021 3:09 PM CDT Sexual Orientation Straight 11/10/2021 3: 09 PM CDT documented as of this encounter Plan of Treatment Upcoming Encounters Date Type Department Care Team (Late Contact Info) Description 09/25/2024 11:30 AM GYROSCOPE TECHNICIAN Appointment [facility] [address] [address] Roberta Alex MD [address] [place] [address] 09/25/2024 11:40 AM GYROSCOPE TECHNICIAN Office Visit [facility] [address] [place] [address] Roberta Alex MD [address] [place] [address] documented as of this encounter Visit Diagnoses Diagnosis Pain in joint, lower leg documented in this encounter
--- OUTSIDE RECORDS SUMMARY | 2024-07-11 05:44 | XMS_ITS | Encounter Summary ---
Author Organization [facility] Address [facility] [place] [address] [place] [address] Care Team Providers Care Creative Project Manager Name Role Phone Alejandro Blevins MD Primary Care Provider [phone] Encounter Details Date Type Department Care Team (Latest Contact Info) Description 04/16/2020 8:50 AM CDT - 04/16/2020 11:59 PM CDT Hospital Encounter [address] [place] [address] Roberta Alex MD [address] [place], [place] [address] Discharge Disposition: Home or Self Care (Routine Discharge) Social History Tobacco Use Types Packs/Day Years Used Date Smoking Tobacco: Every Day Smokeless Tobacco: Never Comments Yes Sex and Gender Information Value Date Recorded Sex Assigned at Not on file Legal Sex Female 11:30 PM VMWARE ENGINEER Gender Identity Female 11/10/2021 3:09 PM [...] st Contact Info) Description 09/25/2024 11:30 AM VMWARE ENGINEER Appointment [facility] [place] [address] Roberta Alex MD [address] [place] [address] 09/25/2024 11:40 AM VMWARE ENGINEER Office Visit [facility] [place] [address] Roberta Alex MD [address] [place] [phone] documented as of this encounter Procedures Procedure Name Priority Date/Time Associated Diagnosis Comments CBC W/DIFF AUTOMATED Routine 04/16/2020 10:17 AM CDT Thrombocytopenia affecting ([facility]) FERRITIN Routine 04/16/2020 10:17 AM CDT Thrombocytopenia affecting ([facility]) documented in this encounter Results * FERRITIN (04/16/2020 10:17 AM CDT) FERRITIN 13.0 8 - 252 NG/ML 04/16/2020 10:52 AM CDT [facility] 04/16/2020 10:1 7 AM CDT Roberta Alex MD LABORATORY Final Result [facility] [address] [place] [address], * (ABNORMAL) CBC W/DIFF AUTOMATED (04/16/2020 10:17 AM CDT) WBC 8.9 4.5 - 10.8 x10'3/uL 04/16/2020 10:34 AM CDT [facility] RBC 4.29 4.10 - 5.40 x10'6/uL 04/16/2020 10:34 AM CDT [facility] HGB 11.2(L) 12.0 - 16.0 G/DL 04/16/2020 10:34 AM CDT [facility] HCT 35.8(L) 36.0 - 47.0 % 04/16/2020 10:34 AM CDT [facility] MCV 83.4 78.0 - 100.0 FL 04/16/2020 10:34 AM CDT [facility] MCH 26.1(L) 27.0 - 31.0 PG 04/16/2020 10:34 AM CDT [facility] MCHC 31.3(L) 33.0 - 36.0 G/DL 04/16/2020 10:34 AM CDT [facility] RDW 19.5(H) 11.5 - 14.5 % 04/16/2020 10:34 AM CDT [facility] PLT 33(L) 150 - 350 x10'3/uL 04/16/2020 10:34 AM CDT [facility] MPV RESULTS NOT AVAILABLE 7.4 - 10.4 FL 04/16/2020 10:34 AM CDT [facility] DIFFERENTIAL COMMENT NORMAL REFERENCE RANGE NOT ESTABLISHED FOR THE PROPORTIONAL LEUKOCYTE DIFFERENTIAL. 04/16/2020 10:34 AM CDT [facility] SEG NEUTROPHILS 70.6 % 0 10:55 AM CDT [facility] LYMPHOCYTES 19.3 % 04/16/2020 10:55 AM CDT [facility] MONOCYTES 6.8 % 04/16/2020 10:55 AM CDT [facility] EOSINOPHILS 1.6 % 04/16/2020 10:55 AM CDT [facility] BASOPHILS 0.4 % 04/16/2020 10:55 AM CDT [facility] IMMATURE GRANS % 1.3 % 04/16/20 10:55 AM CDT [facility] NRBC 0.2 % 04/16/2020 10:55 AM CDT [facility] ABS. NEUTROPHILS 6.28 1.60 - 8.30 x10'3/uL 04/16/2020 10:55 AM CDT [facility] ABS. LYMPHOCYTES 1.72 0.80 - 4.70 x10'3/uL 04/16/2020 10:55 AM CDT [facility] ABS. MONOCYTES 0.61 0.00 - 1.50 x10'3/uL 04/16/2020 10:55 AM CDT [facility] ABS. EOSINOPHILS 0.14 0.00 - 0.40 x10'3/uL 04/16/2020 10:55 AM CDT [facility] ABS. BASOPHILS 0.04 0.00 - 0.20 x10'3/uL 04/16/2020 10:55 AM CDT [facility] ABS. IMMATURE GRANULOCYTES 0.12(H) 0.00 - 0.03 x10'3/uL 04/16/2020 10:55 AM CDT [facility] ABS. NUCLEATED RBC'S 0.02(H) 0.00 x10'3/uL 04/16/2020 10:55 AM CDT [facility] PLT MORPH. DECREASED 04/16/2020 10:55 AM CDT [facility] RBC MORPHOLOGY 1+ 04/16/2020 10:55 AM CDT [facility] Comment:HYPOCHROMASIA 04/16/2020 10:1 7 AM CDT us Roberta Alex MD LABORATORY Final Result [facility] [address] [place] [address], documented in this encounter Visit Diagnoses Diagnosis Thrombocytopenia affecting (CMS/HCC [facility]/HCC) documented in this encounter Care Teams Creative Project Manager Relationship Specialty Start Date End Date Alejandro Blevins MD PCP - General FAMILY PRACTICE 12/10/19 documented as of this encounter
--- OUTSIDE RECORDS SUMMARY | 2024-07-11 05:44 | XMS_ITS | Encounter Summary ---
Author Organization [facility] Address [facility] [facility] [place] [address] [place] [address] Care Team Providers Care Electric Motor Winder Name Role Phone Unavailable Primary Care Provider Unavailabl e Encounter Details Date Type Department Care Team (Late Contact Info) Description 05/06/2010 Abstract [facility] [address] [place] [address] Joseph Iqbal MD [address] [place] [address] Social History Tobacco Use Types Packs/Day Years Used Date Smoking Tobacco: Never Assessed Comments Unknown Sex and Gender Information Value Date Recorded Sex Assigned at Not on file Legal Sex Female 11:30 PM EMERGENCY MEDICINE MEDICAL DIRECTOR Gender Identity Female 11/10/2021 3:09 PM CDT Sexual Orientation Straight 11/10/2021 3: 09 PM CDT documented as of this encounter Plan of Treatment Upcoming Encounters Date Type Department Care Team (Late Contact Info) Description 09/25/2024 11:30 AM EMERGENCY MEDICINE MEDICAL DIRECTOR Appointment [facility] [address] [place] [address] Roberta Alex MD [address] [place] [address] 09/25/2024 11:40 AM EMERGENCY MEDICINE MEDICAL DIRECTOR Office Visit [facility] [address] [place] [address] Roberta Alex MD [address] [place] [address] documented as of this encounter Visit Diagnoses Diagnosis Other and unspecified derangement of medial meniscus documented in this encounter
--- OUTSIDE RECORDS SUMMARY | 2024-07-11 05:44 | XMS_ITS | Encounter Summary ---
Author Organization [facility] Address Critical access hospital6 [facility] [place] [address] [place] [address] Care Team Providers Care Staff Trainer Name Role Phone Alejandro Blevins MD Primary Care Provider [phone] Encounter Details Date Type Department Care Team (Late Contact Info) Description 02/05/2020 Orders Only [facility] [place] [address] Kamilah Thompson RN Social History Tobacco Use Types Packs/Day Years Used Date Smoking Tobacco: Every Day Smokeless Tobacco: Never Comments Yes Sex and Gender Information Value Date Recorded Sex Assigned at Not on file Legal Sex Female 11:30 PM BODY MASKER Gender Identity Female 11/10/2021 3:09 PM CDT [...] (Late Contact Info) Description 09/25/2024 11:30 AM BODY MASKER Appointment [facility] [place] [address] [address] Roberta Alex MD [address] [place] [address] 09/25/2024 11:40 AM BODY MASKER Office Visit [facility] [place] [address] [address] Roberta Alex MD [address] [place] [address] documented as of this encounter Results * FERRITIN (03/04/2020 10:54 AM CDT) FERRITIN 25.3 8 - 252 NG/ML 03/04/2020 11:37 AM CDT [facility] 03/04/2020 10:5 4 AM CDT Roberta Alex MD LABORATORY Final Result Performing Organization Address City/[facility]/ZIP Co de Phone Number [facility] [address] [place] [address], * (ABNORMAL) IRON SAT PANEL (IRON,IBC,%SAT) (03/04/2020 10:54 AM CDT) Pathologist [facility] IRON 31(L) 50 - 170 MCG/DL 03/04/2020 11:27 AM CDT [facility] IRON BINDING CAPACITY 721(H) 250 - 450 MCG/DL 03/04/2020 11:27 AM CDT [facility] IRON SATURATION 4 % 0 11:27 AM CDT [facility] Comment:REFERENCE RANGE NOT ESTABLISHED 03/04/2020 10:5 4 AM CDT Roberta Alex MD LABORATORY Final Result [facility] [address] [place] [address], * (ABNORMAL) CBC W/DIFF AUTOMATED (03/04/2020 10:54 AM CDT) Pathologist [facility] WBC 9.7 4.5 - 10.8 x10'3/uL 03/04/2020 11:04 AM CDT [facility] RBC 4.11 4.10 - 5.40 x10'6/uL 03/04/2020 11:04 AM CDT [facility] HGB 10.8(L) 12.0 - 16.0 G/DL 03/04/2020 11:04 AM CDT [facility] HCT 34.8(L) 36.0 - 47.0 % 03/04/2020 11:04 AM CDT [facility] MCV 84.7 78.0 - 100.0 FL 03/04/2020 11:04 AM CDT [facility] MCH 26.3(L) 27.0 - 31.0 PG 03/04/2020 11:04 AM CDT [facility] MCHC 31.0(L) 33.0 - 36.0 G/DL 03/04/2020 11:04 AM CDT [facility] RDW 21.1(H) 11.5 - 14.5 % 03/04/2020 11:04 AM CDT [facility] PLT 42(L) 150 - 350 x10'3/uL 03/04/2020 11:04 AM CDT [facility] MPV RESULTS NOT AVAILABLE 7.4 - 10.4 FL 03/04/2020 11:04 AM CDT [facility] DIFFERENTIAL COMMENT NORMAL REFERENCE RANGE NOT ESTABLISHED FOR THE PROPORTIONAL LEUKOCYTE DIFFERENTIAL. 03/04/2020 11:04 AM CDT [facility] SEG NEUTROPHILS 76.6 % 0 11:31 AM CDT [facility] LYMPHOCYTES 16.6 % 03/04/2020 11:31 AM CDT [facility] MONOCYTES 4.8 % 03/04/2020 11:31 AM CDT [facility] EOSINOPHILS 0.7 % 03/04/2020 11:31 AM CDT [facility] BASOPHILS 0.4 % 03/04/2020 11:31 AM CDT [facility] IMMATURE GRANS % 0.9 % 03/04/20 20 11:31 AM CDT [facility] NRBC 0.0 % 03/04/2020 11:31 AM CDT [facility] ABS. NEUTROPHILS 7.42 1.60 - 8.30 x10'3/uL 03/04/2020 11:31 AM CDT [facility] ABS. LYMPHOCYTES 1.61 0.80 - 4.70 x10'3/uL 03/04/2020 11:31 AM CDT [facility] ABS. MONOCYTES 0.47 0.00 - 1.50 x10'3/uL 03/04/2020 11:31 AM CDT [facility] ABS. EOSINOPHILS 0.07 0.00 - 0.40 x10'3/uL 03/04/2020 11:31 AM CDT [facility] ABS. BASOPHILS 0.04 0.00 - 0.20 x10'3/uL 03/04/2020 11:31 AM CDT [facility] ABS. IMMATURE GRANULOCYTES 0.09(H) 0.00 - 0.03 x10'3/uL 03/04/2020 11:31 AM CDT [facility] ABS. NUCLEATED RBC'S 0.00 0.00 x10'3/uL 03/04/2020 11:31 AM CDT [facility] PLT MORPH. DECREASED 03/04/2020 11:31 AM CDT [facility] RBC MORPHOLOGY 1+ 03/04/2020 11:31 AM CDT [facility] Comment: HYPOCHROMASIA 1+ ANISOCYTOSIS 03/04/2020 10:5 4 AM CDT Roberta Alex MD LABORATORY Final Result [facility] [place] [address], documented in this encounter Visit Diagnoses Diagnosis Thrombocytopenia affecting (CMS/HCC HHS/HCC)- Primary Iron deficiency anemia secondary to inadequate dietary iron intake documented in this encounter Care Teams Staff Trainer Relationship Specialty Start Date End Date Alejandro Blevins MD PCP - General FAMILY PRACTICE 12/10/19 documented as of this encounter
--- OUTSIDE RECORDS SUMMARY | 2024-07-11 05:44 | XMS_ITS | Encounter Summary ---
Author Organization [facility] Address [address] [place] [address]. [place], [place] [address] [place] [address] Care Team Providers Care Incident Manager Name Role Phone Alejandro Blevins MD Primary Care Provider Encounter Details Date Type Department Care Team (Latest Contact Info) Description 03/25/2020 Travel Social History Tobacco Use Types Packs/Day Years Used Date Smoking Tobacco: Every Day Smokeless Tobacco: Never Comments Yes Sex and Gender Information Value Date Recorded Sex Assigned at Not on file Legal Sex Female 11:30 PM TENTS ASSEMBLER Gender Identity Female 11/10/2021 3:09 PM CDT [...] st Contact Info) Description 09/25/2024 11:30 AM TENTS ASSEMBLER Appointment [facility] [address] [place] [address] Roberta Alex MD [address] [place] [address] 09/25/2024 11:40 AM TENTS ASSEMBLER Office Visit [facility] [address] [place] [address] Roberta Alex MD [address] [place] [address] documented as of this encounter Visit Diagnoses Not on filedocumented in this encounter Care Teams Incident Manager Relationship Specialty Start Date End Date Alejandro Blevins MD PCP - General FAMILY PRACTICE 12/10/19 documented as of this encounter
--- OUTSIDE RECORDS SUMMARY | 2024-07-11 05:44 | XMS_ITS | Encounter Summary ---
Author Organization [facility] Address [address] [place] [address]. [place] [address] [place] [address] Care Team Providers Care Handling Tech Name Role Phone Alejandro Blevins MD Primary Care Provider [phone] Encounter Details Date Type Department Care Team (Latest Contact Info) Description 01/03/2020 Travel Social History Tobacco Use Types Packs/Day Years Used Date Smoking Tobacco: Every Day Smokeless Tobacco: Never Comments Yes Sex and Gender Information Value Date Recorded Sex Assigned at Not on file Legal Sex Female 11:30 PM PROCEDURE ANALYST Gender Identity Female 11/10/2021 3:09 PM [...] st Contact Info) Description 09/25/2024 11:30 AM PROCEDURE ANALYST Appointment [facility] [address] [place] [address] Roberta Alex MD [address] [place] [address] 09/25/2024 11:40 AM PROCEDURE ANALYST Office Visit [facility] [address] [place] [address] Roberta Alex MD [address] [place] [address] documented as of this encounter Visit Diagnoses Not on filedocumented in this encounter Care Teams Handling Tech Relationship Specialty Start Date End Date Alejandro Blevins MD PCP - General FAMILY PRACTICE 12/10/19 documented as of this encounter
--- OUTSIDE RECORDS SUMMARY | 2024-07-11 05:44 | XMS_ITS | Encounter Summary ---
Author Organization [facility] Address [facility] [place] [address] [place] [address] Care Team Providers Care Social Media Project Manager Name Role Phone Alejandro Blevins MD Primary Care Provider [phone] Reason for Referral * Imaging (Routine) - Closed Specialty Diagnoses / Procedures Referred By Contac t Referred To Contact RADIOLOGY Diagnoses Thrombocytopenia affecting ([facility]/HCC [facility]/HCC) Procedures US ABD LIMITED [place] [address] [place] [address] Phone: tel: Referral ID Status Reason Start Date Expiration Date Visits Re quested Visits Authorized [id number] Closed 12/18/2019 01/17/2021 1 1 Reason for Visit * Reason Comments Consult Encounter Details Date Type Department Care Team (Late st Contact Info) Description 12/18/2019 1:00 PM CDT Initial Consult [id number] [place] [address] Sunny Hinkle MD [address] [place] [address] Consult Social History Tobacco Use Types Packs/Day Years Used Date Smoking Tobacco: Never Assessed Comments Yes Sex and Gender Information Value Date Recorded Sex Assigned at Not on file Legal Sex Female 11:30 PM PUBLIC FINANCE SPECIALIST Gender Identity Female 11/10/2021 3:09 PM [...] Sign Reading Time Taken Comments Blood Pressure 112/60 12/18/2019 1:02 PM CDT Pulse 100 12/18/2019 1:02 PM CDT Temperature 36.8 ??C (98.2 ??F) 12/18/2019 1:02 PM CD T Respiratory Rate 20 12/18/2019 1:02 PM CDT Oxygen Saturation - - Inhaled Oxygen Concentration - - Weight 64.4 kg (141 lb 15.6 oz) 12/18/2019 1:02 PM CDT Height 160 cm (5' 3 ) 12/18/2019 1:02 PM CDT Body Mass Index 25.15 12/18/2019 1:02 PM CDT documented in this encounter Progress Notes * Sunny Hinkle MD - 12/18/2019 1:00 PM CDTAddended by: SUNNY HINKLE on: 12/19/2019 02:42 PM Modules accepted: Orders * Sunny Hinkle MD - 12/18/2019 1:00 PM CDT Hematology/Oncology Note Identifying Data Hillary Smalls is a 29-year-old female Reason for Consult: Consult Referring Physician: Dr Alejandro Blevins mD History of Present Illness: Ms Smalls is a 29-year-old female with history of chronic hepatitis C, chronic thrombocytopenia, history of IVDU, who is currently at 21 weeks gestation with twin being referred for management of iron deficiency, B12 deficiency. She was recently hospitalized at [facility] with severe anemia. Pertinent labs with Hgb of 5.2 g/dL, MCV 64.6, platelets 59, ferritin 2/T sat3, vitamin B12 171. Hemolytic work-up negative. Hemoglobin electrophoresis normal. Hypoproliferative reticulocyte count. MARQUITA negative. Toxicology screen positive for amphetamines. Received 2 units ofPRBC, B12 injection x1, IV Venofer 300 mg x2. She had no care prior to admission. She denied any blood loss in stool, urine. She denied any worsening fatigue, shortness of breath, palpitations. Reports history of severe iron deficiency in the past. She reports also following with [facility] [employer] Dr. Dick Bonilla 5 years ago for thrombocytopenia and iron deficiency. Bone marrow biopsy at that time was normal per patient. Denied any family history of hemoglobinopathies, malignancies. Review of Systems Constitutional: Negative for chills, fever and malaise/fatigue. HENT: Negative for nosebleeds. Eyes: Negative. Respiratory: Negative for sputum production and shortness of breath. Cardiovascular: Negative for chest pain, palpitations and leg swelling. Gastrointestinal: Negative for abdominal pain, blood in stool, melena, nausea and vomiting. Genitourinary: Negative for frequency and hematuria. Musculoskeletal: Negative. Skin: Negative. Neurological: Negative. Endo/Heme/Allergies: Does not bruise/bleed easily. Psychiatric/Behavioral: Positive for substance abuse. The patient is not nervous/anxious and does not have insomnia. No history exists. Pertinent History: Past medical history: Chronic hepatitis C, chronic thrombocytopenia, history of IVDU Family history: No family history of any [...] on file Tobacco Use ??? Smoking status: Not on file Substance and Sexual Activity ??? Alcohol use: Not on file ??? Drug use: Not on file ??? Sexual activity: Not on file Lifestyle ??? Physical activity: Days per week: Not on file Minutes per session: Not on file ??? Stress: Not on file Relationships ??? Social connections: Talks on phone: Not on file Gets together: Not on file Attends islam service: Not on file Active member of [...] Outpatient Medications Medication Sig Dispense Refill ??? ferrous sulfate, 65 mg elemental, 325 (65 FE) MG tablet Take 325 mg by mouth daily. ??? folic acid 1 MG tablet Take 1 mg by mouth daily. ??? nitrofurantoin, macrocrystal-monohydrate, 100 MG capsule Take 100 mg by mouth. ??? vitamin B-12 1000 MCG tablet Take 1,000 mcg by mouth daily. No current facility-administered medications for this visit. Allergies Allergen Reactions ??? Bee Venom Anaphylaxis ??? Shellfish Allergy Anaphylaxis Patient Active Problem List Diagnosis ??? Anemia ??? Hepatitis C virus infection without hepatic coma ??? Polysubstance abuse (CMS/HCC) ??? Thrombocytopenia affecting (CMS/HCC) ??? Transaminitis ??? Twin Vitals Height: 5' 3 (1.6 m) , Weight: 64.4 kg (141 lb 15.6 oz) , BSA (Calculated - sq m): 1.69 sq meters , BP: 112/60 , Temp: 98.2 ??F (36.8 ??C) , Pulse: 100 , Resp: 20 Physical Exam Constitutional: She is oriented to person, place, and time. She appears well- developed and well-nourished. No distress. HENT: Head: Normocephalic and atraumatic. Mouth/Throat: No oropharyngeal exudate. Eyes: Pale conjunctiva Neck: Normal range of motion. Neck supple. Cardiovascular: Normal rate and regular rhythm. No murmur heard. Pulmonary/Chest: Effort normal and breath sounds normal. No respiratory distress. She has no wheezes. Abdominal: Soft. Gestation noted Musculoskeletal: Normal range of motion. She exhibits no edema. Lymphadenopathy: She has no cervical adenopathy. Neurological: She is alert and oriented to person, place, and time. She exhibits normal muscle tone. Skin: Skin is warm. There is pallor. Psychiatric: She has a normal mood and affect. Thought content normal. Laboratory CBC: ABS. NEUTROPHILS Date Value Ref Range Status 12/18/2019 10.02 (H) 1.60 - 8.30 x10'3/uL Final WBC Date Value Ref Range Status 12/18/2019 13.0 (H) 4.5 - 10.8 x10'3/uL Final HGB Date Value Ref Range Status 12/18/2019 9.1 (L) 12.0 - 16.0 G/DL Final HCT Date Value Ref Range Status 12/18/2019 30.7 (L) 36.0 - 47.0 % Final PLT Date Value Ref Range Status 12/18/2019 51 (L) 150 - 350 x10'3/uL Final Assessment and Plan 1. Severe iron deficiency anemia: Acute on chronic. Likely exacerbated due to nutritional deficiencies, high iron requirements from twin . Poor care. Check FOBT. Repeat ferritin, continue with IV Venofer 200 mg x 3 doses on a weekly basis. RTC in 4-6 weeks for follow up 2. Vitamin B12 deficiency: Check intrinsic factor antibody. Supplement with B12 injections on a weekly basis and then continue on oral high-dose 1000MCG daily 3. Thrombocytopenia: History of chronic HCV. Reports BM biopsy 5 years ago normal. Clinically no symptoms of bleeding. Obtain ultrasound of liver and spleen. We discussed about various etiologies, management during briefly. She will need hepatology follow-up. Obtain previous records. 4. History of IVDA: Strongly advised on cessation. 5. Chronic Hep C: Referral to Industrial Automation Engineer. HCV RNA pending. US of liver as above. Needs surveillance for varices and follow up on FOBT Time Spent: Approximately 45 minutes was spent in direct patient consultation and the majority of that time (>50%) was spent on counseling and coordination of care. Sunny Hinkle MD CC: PCP Alejandro Blevins MD documented in this encounter Plan of Treatment Upcoming Encounters Date Type Department Care Team (Late st Contact Info) Description 09/25/2024 11:30 AM PUBLIC FINANCE SPECIALIST Appointment [address] [place] [address] Sunny Hinkle MD [address] [place] [address] 09/25/2024 11:40 AM PUBLIC FINANCE SPECIALIST Office Visit [facility] [address] [place] [address] [place] [address] Sunny Hinkle MD [address] [place] [address] documented as of this encounter Results * (ABNORMAL) FERRITIN (02/05/2020 11:40 AM CDT) FERRITIN 7.8(L) 8 - 252 NG/ML 02/05/2020 12:14 PM CDT [facility] 02/05/2020 11:4 0 AM CDT Sunny Hinkle MD LABORATORY Final Result Performing Organization Address [facility]/ZIP Co de Phone Number [facility] [address] [place] [address], * (ABNORMAL) IRON SATURATION PNL (FE/TIBC/SAT) (02/05/2020 11:40 AM CDT) IRON 29(L) 50 - 170 MCG/DL 02/05/2020 12:18 PM CDT [facility] IRON BINDING CAPACITY 623(H) 250 - 450 MCG/DL 02/05/2020 12:18 PM CDT [facility] IRON SATURATION 5 % 0 12:18 PM CDT [facility] Comment:REFERENCE RANGE NOT ESTABLISHED 02/05/2020 11:4 0 AM CDT Sunny Hinkle MD LABORATORY Final Result Performing Organization Address City/[facility]/ZIP Co de Phone Number [facility] [address] [place] [phone], * (ABNORMAL) CBC W/DIFF AUTOMATED (02/05/2020 11:40 AM CDT) WBC 11.3(H) 4.5 - 10.8 x10'3/uL 02/05/2020 11:54 AM CDT [facility] RBC 3.88(L) 4.10 - 5.40 x10'6/uL 02/05/2020 11:54 AM CDT [facility] HGB 9.7(L) 12.0 - 16.0 G/DL 02/05/2020 11:54 AM CDT [facility] HCT 31.9(L) 36.0 - 47.0 % 02/05/2020 11:54 AM CDT [facility] MCV 82.2 78.0 - 100.0 FL 02/05/2020 11:54 AM CDT [facility] MCH 25.0(L) 27.0 - 31.0 PG 02/05/2020 11:54 AM CDT [facility] MCHC 30.4(L) 33.0 - 36.0 G/DL 02/05/2020 11:54 AM CDT [facility] RDW 25.1(H) 11.5 - 14.5 % 02/05/2020 11:54 AM CDT [facility] PLT 42(L) 150 - 350 x10'3/uL 02/05/2020 11:54 AM CDT [facility] MPV RESULTS NOT AVAILABLE 7.4 - 10.4 FL 02/05/2020 11:54 AM CDT [facility] DIFFERENTIAL COMMENT NORMAL REFERENCE RANGE NOT ESTABLISHED FOR THE PROPORTIONAL LEUKOCYTE DIFFERENTIAL. 02/05/2020 11:54 AM CDT [facility] SEG NEUTROPHILS 74.2 % 0 12:20 PM CDT [facility] LYMPHOCYTES 15.2 % 02/05/2020 12:20 PM CDT [facility] MONOCYTES 5.6 % 02/05/2020 12:20 PM CDT [facility] EOSINOPHILS 1.9 % 02/05/2020 12:20 PM CDT [facility] BASOPHILS 0.4 % 02/05/2020 12:20 PM CDT [facility] IMMATURE GRANS % 2.7 % 02/05/20 20 12:20 PM CDT [facility] NRBC 0.0 % 02/05/2020 12:20 PM CDT [facility] ABS. NEUTROPHILS 8.38(H) 1.60 - 8.30 x10'3/uL 02/05/2020 12:20 PM CDT [facility] ABS. LYMPHOCYTES 1.72 0.80 - 4.70 x10'3/uL 02/05/2020 12:20 PM CDT [facility] ABS. MONOCYTES 0.63 0.00 - 1.50 x10'3/uL 02/05/2020 12:20 PM CDT [facility] ABS. EOSINOPHILS 0.21 0.00 - 0.40 x10'3/uL 02/05/2020 12:20 PM CDT [facility] ABS. BASOPHILS 0.05 0.00 - 0.20 x10'3/uL 02/05/2020 12:20 PM CDT [facility] ABS. IMMATURE GRANULOCYTES 0.31(H) 0.00 - 0.03 x10'3/uL 02/05/2020 12:20 PM CDT [facility] ABS. NUCLEATED RBC'S 0.00 0.00 x10'3/uL 02/05/2020 12:20 PM CDT [facility] PLT MORPH. DECREASED 02/05/2020 12:20 PM CDT [facility] RBC MORPHOLOGY 2+ 02/05/2020 12:20 PM CDT [facility] Comment:ANISOCYTOSIS 02/05/2020 11:4 0 AM CDT Sunny Hinkle MD LABORATORY Final Result [facility] [address] [place] [address], documented in this encounter Visit Diagnoses Diagnosis Iron deficiency anemia secondary to inadequate dietary iron intake- Primary Thrombocytopenia affecting (CMS/HCC HHS/HCC) Chronic hepatitis C without hepatic coma (CMS/HCC HHS/HCC) Other dietary vitamin B12 deficiency anemia documented in this encounter Care Teams Social Media Project Manager Relationship Specialty Start Date End Date Alejandro Blevins MD PCP - General FAMILY PRACTICE 12/10/19 documented as of this encounter
--- OUTSIDE RECORDS SUMMARY | 2024-07-11 05:44 | XMS_ITS | Encounter Summary ---
Author Organization [facility] Address [address] [place] [address]. [place] [address] [place] [address] Care Team Providers Care Crime Lab Technician Name Role Phone Alejandro Blevins MD Primary Care Provider [phone] Reason for Visit * Treatment/Therapy Plan Authorization (Routine) - Closed Specialty Diagnoses / Procedures Referred By Contac t Referred To Contact Diagnoses Iron deficiency anemia secondary to inadequate dietary iron intake Procedures IRON SUCROSE INJ, 20 MG Roberta Alex MD [address] [place] [address] Phone: tel: fax: [facility] [place] [address] Phone: tel: Referral ID Status Reason Start Date Expiration Date Visits Re quested Visits Authorized [id number] Closed 12/19/2019 04/23/2020 1 3 Encounter Details Date Type Department Care Team (Late st Contact Info) Description 01/10/2020 10:00 AM CDT - 01/10/2020 11:59 PM CDT Hospital Encounter [facility] [place] [address] Alejandro Blevins MD [address] [place] [address] Discharge Disposition: Home or Self Care (Routine Discharge) Social History Tobacco Use Types Packs/Day Years Used Date Smoking Tobacco: Every Day Smokeless Tobacco: Never Comments Yes Sex and Gender Information Value Date Recorded Sex Assigned at Not on file Legal Sex Female 11:30 PM CHINCHILLA MACHINE OPERATOR Gender Identity Female 11/10/2021 3:09 [...] Sign Reading Time Taken Comments Blood Pressure 134/79 01/10/2020 10:24 AM CDT Pulse 120 01/10/2020 10:24 AM CDT Temperature 36.3 ??C (97.3 ??F) 01/10/2020 10:24 AM C DT Respiratory Rate 20 01/10/2020 10:24 AM CDT Oxygen Saturation 99% 01/10/2020 10:24 AM CDT Inhaled Oxygen Concentration - - Weight 65.1 kg (143 lb 9.6 oz) 01/10/2020 10:24 AM CDT Height - - Body Mass Index 25.44 12/18/2019 1:02 PM CDT documented in this [...] encounter Progress Notes * Cecilia Healy - 01/11/2020 11:28 AM CDTEncounter addended by: Cecilia Healy on: 01/11/2020 11:28 AM Actions taken: Charge Capture section accepted * Kamilah Thompson RN - 01/10/2020 12:28 PM CDTEncounter addended by: Kamilah Thompson RN on: 01/10/2020 12:28 PM Actions taken: Treatment plan modified * Bhumika Paulino RN - 01/10/2020 10:26 AM CDT PATIENT ASSESSMENT: Admitted via: Ambulatory Admitted from: Home Planned procedure: venofer/B12 Patient information verified by BHUMIKA PAULINO RN. Barriers to learning: None Patient identity confirmed - Name and date of and Allergies Verified LOC: Alert Emotional: Calm Motor Activity: Gait steady Respiratory: Regular and even Circulatory: na Nutrition: na Elimination: na NURSING DIAGNOSIS: Knowledge deficit related to procedure, Anxiety/fear related to knowledge deficit and Risk of injury GOALS: Patient/S.O. will understand expected responses to procedure, Patient/S.O. will verbalize anxietiesand/or concerns and Patient will be free from signs/symptoms of physical injury documented in this encounter Plan of Treatment Upcoming Encounters Date Type Department Care Team (Late st Contact Info) Description 09/25/2024 11:30 AM CHINCHILLA MACHINE OPERATOR Appointment [facility] [address] [place] [address] Roberta Alex MD [address] [place] [address] 09/25/2024 11:40 AM CHINCHILLA MACHINE OPERATOR [facility] [place] [address] Roberta Alex MD [address] [place] [address] documented as of this encounter Visit Diagnoses Diagnosis Iron deficiency anemia secondary to inadequate dietary iron intake- Primary Other dietary vitamin B12 deficiency anemia documented in this encounter Administered Medications Inactive Administered Medications - up to 3 most recent administrations Medication Order MAR Action Action Date Dose Rate Site cyanocobalamin (B-12) injection 1,000 mcg 1,000 mcg, Intramuscular, Once, 1 dose, On Brittni 01/10/20 at 1030Indications:Other dietary vitamin B12 deficiency anemia Given 01/10/2020 12:11 PM CDT 1,000 mcg Left Deltoid iron sucrose (VENOFER) 200 mg in sodium chloride 0.9 % 100 mL IVPB 200 mg, Intravenous, at 400 mL/hr, Once, 1 dose, On Brittni 01/10/20 at 1030Indications:Iron deficiency anemia secondary to inadequate dietary iron intake Rate/Dose Change 01/10/2020 11:09 AM CDT 50 mL/hr New Bag 01/10/2020 10:40 AM CDT 200 mg 100 mL/hr documented in this encounter Care Teams Crime Lab Technician Relationship Specialty Start Date End Date Alejandro Blevins MD PCP - General FAMILY PRACTICE 12/10/19 documented as of this encounter
--- OUTSIDE RECORDS SUMMARY | 2024-07-11 05:44 | XMS_ITS | Encounter Summary ---
Author Organization [facility] Address [facility] [place] [address] [place] [address] Care Team Providers Care Solution Strategist Name Role Phone Unavailable Primary Care Provider Unavailabl e Encounter Details Date Type Department Care Team (Late Contact Info) Description 01/15/2012 Abstract [facility] [place] [address] Kamron Yadav MD [address] [place] [address] Social History Tobacco Use Types Packs/Day Years Used Date Smoking Tobacco: Never Assessed Comments Unknown Sex and Gender Information Value Date Recorded Sex Assigned at Not on file Legal Sex Female 11:30 PM BRICK AND BLOCK MASON Gender Identity Female 11/10/2021 3:09 PM CDT Sexual Orientation Straight 11/10/2021 3: 09 PM CDT documented as of this encounter Plan of Treatment Upcoming Encounters Date Type Department Care Team (Late Contact Info) Description 09/25/2024 11:30 AM BRICK AND BLOCK MASON Appointment [facility] [address] [place] [address] Roberta Alex MD [address] [place] [address] 09/25/2024 11:40 AM BRICK AND BLOCK MASON Office Visit [facility] [place] [address] Roberta Alex MD [address] [place] [address] documented as of this encounter Visit Diagnoses Diagnosis Injury, other and unspecified, finger documented in this encounter
--- OUTSIDE RECORDS SUMMARY | 2024-07-11 05:44 | XMS_ITS | Encounter Summary ---
Author Organization [facility] Address [address] [place] [address]. [place] [address] [place] [address] Care Team Providers Care Mobility Scooter Repairer Name Role Phone Alejandro Blevins MD Primary Care Provider [phone] Encounter Details Date Type Department Care Team (Latest Contact Info) Description 12/26/2019 Travel Social History Tobacco Use Types Packs/Day Years Used Date Smoking Tobacco: Never Assessed Comments Yes Sex and Gender Information Value Date Recorded Sex Assigned at Not on file Legal Sex Female 11:30 PM STABLE HELPER Gender Identity Female 11/10/2021 3:09 PM [...] st Contact Info) Description 09/25/2024 11:30 AM STABLE HELPER Appointment [facility] [address] [place] [address] Roberta Alex MD [address] [place] [address] 09/25/2024 11:40 AM STABLE HELPER Office Visit [facility] [address] [place] [address] Roberta Alex MD [address] [place] [address] documented as of this encounter Visit Diagnoses Not on filedocumented in this encounter Care Teams Mobility Scooter Repairer Relationship Specialty Start Date End Date Alejandro Blevins MD PCP - General FAMILY PRACTICE 12/10/19 documented as of this encounter
--- OUTSIDE RECORDS SUMMARY | 2024-07-11 05:44 | XMS_ITS | Encounter Summary ---
Author Organization [facility] Address Pending sale to [facility] [place] [address] [place] [address] Care Team Providers Care Chief Wharfinger Name Role Phone Unavailable Primary Care Provider Unavailabl e Encounter Details Date Type Department Care Team (Late Contact Info) Description 09/16/2014 Abstract [facility] [address] [place] [address] Dick Bonilla MD [address] [place], [place] [id number] Social History Tobacco Use Types Packs/Day Years Used Date Smoking Tobacco: Never Assessed Comments Unknown Sex and Gender Information Value Date Recorded Sex Assigned at Not on file Legal Sex Female 11:30 PM AIRCRAFT LIFE SUPPORT FITTER Gender Identity Female 11/10/2021 3:09 PM CDT Sexual Orientation Straight 11/10/2021 3: 09 PM CDT documented as of this encounter Plan of Treatment Upcoming Encounters Date Type Department Care Team (Late Contact Info) Description 09/25/2024 11:30 AM AIRCRAFT LIFE SUPPORT FITTER Appointment [facility] [address] [place] [address] Roberta Alex MD [address] [place] [address] 09/25/2024 11:40 AM AIRCRAFT LIFE SUPPORT FITTER Office Visit [facility] [address] [place] [address] Roberta Alex MD [address] [place] [address] documented as of this encounter Visit Diagnoses Diagnosis Calculus of kidney documented in this encounter
--- OUTSIDE RECORDS SUMMARY | 2024-07-11 05:44 | XMS_ITS | Encounter Summary ---
Author Organization [facility] Address [facility] [place] [address] [place] [address] Care Team Providers Care Day Light Relief Operator Name Role Phone Unavailable Primary Care Provider Unavailabl e Encounter Details Date Type Department Care Team (Late Contact Info) Description 12/14/2011 Abstract [place] [address] [place] [address] Cirilo Schultz MD [address] [place] [phone] Social History Tobacco Use Types Packs/Day Years Used Date Smoking Tobacco: Never Assessed Comments Unknown Sex and Gender Information Value Date Recorded Sex Assigned at Not on file Legal Sex Female 11:30 PM PERMIT AGENT Gender Identity Female 11/10/2021 3:09 PM CDT Sexual Orientation Straight 11/10/2021 3: 09 PM CDT documented as of this encounter Plan of Treatment Upcoming Encounters Date Type Department Care Team (Late Contact Info) Description 09/25/2024 11:30 AM PERMIT AGENT Appointment [facility] [address] [place] [address] Roberta Alex MD [address] [place] [address] 09/25/2024 11:40 AM PERMIT AGENT Office Visit [facility] [address] [place] [address] Roberta Alex MD [address] [place] [address] documented as of this encounter Visit Diagnoses Diagnosis Other and unspecified nonspecific immunological findings documented in this encounter
--- OUTSIDE RECORDS SUMMARY | 2024-07-11 05:44 | XMS_ITS | Encounter Summary ---
Author Organization [facility] Address [address] [place] [address]. [place], [place] [address] [place] [address] Care Team Providers Care Improvement Nurse Name Role Phone Alejandro Blevins MD Primary Care Provider [phone] Encounter Details Date Type Department Care Team (Latest Contact Info) Description 02/22/2020 Travel Social History Tobacco Use Types Packs/Day Years Used Date Smoking Tobacco: Every Day Smokeless Tobacco: Never Comments Yes Sex and Gender Information Value Date Recorded Sex Assigned at Not on file Legal Sex Female 11:30 PM CABLE DISPATCHER Gender Identity Female 11/10/2021 3:09 PM CDT [...] st Contact Info) Description 09/25/2024 11:30 AM CABLE DISPATCHER Appointment [facility] [address] [place] [address] Roberta Alex MD [address] [place] [address] 09/25/2024 11:40 AM CABLE DISPATCHER Office Visit [facility] [address] [place] [address] Roberta Alex MD [address] [place] [address] documented as of this encounter Visit Diagnoses Not on filedocumented in this encounter Care Teams Improvement Nurse Relationship Specialty Start Date End Date Alejandro Blevins MD PCP - General FAMILY PRACTICE 12/10/19 documented as of this encounter
--- OUTSIDE RECORDS SUMMARY | 2024-07-11 05:44 | XMS_ITS | Encounter Summary ---
Author Organization [facility] Address [address] [place] [address]. [place], [place] [address] [place] [address] Care Team Providers Care Heavy Equipment Sales Associate Name Role Phone Alejandro Blevins MD Primary Care Provider [phone] Reason for Referral * Imaging (Routine) - Closed Specialty Diagnoses / Procedures Referred By Contac t Referred To Contact RADIOLOGY Diagnoses Hepatitis C virus infection without hepatic coma Thrombocytopenia affecting (CMS/HCC HHS/HCC) Transaminitis Procedures US ABD LIMITED [facility] [place] [address] Phone: tel: Referral ID Status Reason Start Date Expiration Date Visits Re quested Visits Authorized [id number] Closed 12/19/2019 01/18/2021 1 1 * Imaging (Routine) - Closed Specialty Diagnoses / Procedures Referred By Contac t Referred To Contact RADIOLOGY Diagnoses Thrombocytopenia affecting (CMS/HCC HHS/HCC) Procedures US ABD LIMITED [facility] [place] [address] Phone: tel: Referral ID Status Reason Start Date Expiration Date Visits Re quested Visits Authorized [id number] Closed 12/18/2019 01/17/2021 1 1 Reason for Visit * Imaging (Routine) - Closed Specialty Diagnoses / Procedures Referred By Contac t Referred To Contact RADIOLOGY Diagnoses Thrombocytopenia affecting (CMS/HCC HHS/HCC) Procedures US ABD LIMITED [facility] [place] [address] Phone: tel: Referral ID Status Reason Start Date Expiration Date Visits Re quested Visits Authorized [id number] Closed 12/18/2019 01/17/2021 1 1 Encounter Details Date Type Department Care Team (Latest Contact Info) Description 12/26/2019 8:00 AM CDT - 12/26/2019 11:59 PM CDT Hospital Encounter [facility] [address] [place] [address] Roberta Alex MD [address] [place] [address] Discharge Disposition: Home or Self Care (Routine Discharge) Social History Tobacco Use Types Packs/Day Years Used Date Smoking Tobacco: Never Assessed Comments Yes Sex and Gender Information Value Date Recorded Sex Assigned at Not on file Legal Sex Female 11:30 PM INDIAN BLANKET WEAVER Gender Identity Female 11/10/2021 3:09 PM CDT [...] st Contact Info) Description 09/25/2024 11:30 AM INDIAN BLANKET WEAVER Appointment [facility] [address] [place] [address] Roberta Alex MD [address] [place] [address] 09/25/2024 11:40 AM INDIAN BLANKET WEAVER Office Visit [place] [id number] [facility] [place] [address] Roberta Alex MD [address] [place] [address] documented as of this encounter Procedures Procedure Name Priority Date/Time Associated Diagnosis Comments US ABD LIMITED Routine 12/26/2019 8:46 AM CDT Hepatitis C virus infection without hepatic coma Thrombocytopenia affecting (CMS/HCC HHS/HCC) Transaminitis documented in this encounter Results * US ABD LIMITED (12/26/2019 8:46 AM [...] Visit Diagnoses Diagnosis Thrombocytopenia affecting (CMS/HCC HHS/HCC) Hepatitis C virus infection without hepatic coma Transaminitis Nonspecific elevation of levels of transaminase or lactic acid dehydrogenase (LDH) documented in this encounter Care Teams Heavy Equipment Sales Associate Relationship Specialty Start Date End Date Alejandro Blevins MD PCP - General FAMILY PRACTICE 12/10/19 documented as of this encounter
--- OUTSIDE RECORDS SUMMARY | 2024-07-11 05:44 | XMS_ITS | Encounter Summary ---
Author Organization [facility] Address [address] [place] [address]. [place] [address] [place] [address] Care Team Providers Care Fundraising Director Name Role Phone Alejandro Blevins MD Primary Care Provider [phone] Reason for Visit * Reason Comments Follow Up Lab Results Encounter Details Date Type Department Care Team (Late st Contact Info) Description 03/04/2020 10:40 AM CDT Office Visit [address] [place] [address] Roberta Alex MD [address] [place] [address] Follow Up; Lab Results Social History Tobacco Use Types Packs/Day Years Used Date Smoking Tobacco: Every Day Smokeless Tobacco: Never Comments Yes Sex and Gender Information Value Date Recorded Sex Assigned at Not on file Legal Sex Female 11:30 PM BOX LIDDER Gender Identity Female 11/10/2021 3:09 PM CDT [...] Sign Reading Time Taken Comments Blood Pressure 127/76 03/04/2020 11:13 AM CDT Pulse 105 03/04/2020 11:13 AM CDT Temperature 36.2 ??C (97.2 ??F) 03/04/2020 11:13 AM C DT Respiratory Rate 20 03/04/2020 11:13 AM CDT Oxygen Saturation - - Inhaled Oxygen Concentration - - Weight 69.5 kg (153 lb 3.5 oz) 03/04/2020 11:13 AM CDT Height 160 cm (5' 3 ) 03/04/2020 11:13 AM CDT Body Mass Index 27.14 03/04/2020 11:13 AM CDT documented in this encounter Progress Notes * Roberta Alex MD - 03/04/2020 10:40 AM CDT Hematology/Oncology Note Identifying Data [...] with severe fatigue, SOB and hospitalized at [facility] with severe anemia and was also noted to be at 20 weeks withtwins. Pertinent labs with Hgb of 5.2 g/dL, MCV 64.6, platelets 59, ferritin 2/T sat 3, vitamin [id number]. Hemolytic work-up negative. Hemoglobin electrophoresis normal. Hypoproliferative reticulocyte count. MARQUITA negative. Toxicology screen positive for amphetamines. Received 2 units of PRBC, B12 injec tion x1, IV Venofer 300 mg x2. She had no care prior to admission. She now follows closelywith highway patrol officer-buggy driver Dr Machelle Costello at [facility] in [place]. Plan for IOL in mid April. Patient has history of chronic thrombocytopenia and iron deficiency and followed with [facility] photography professor Dr. Dick Bonilla 5 years ago. Today she is here for follow-up. She is currently in her 3rd trimester. She continues to have fatigue. Noticing worsening GERD. Continues to smoke. Denied any substance abuse. She is taking her oral iron and multivitamin now. She was on vacation and previously did not take her medications as instructed. No bleeding. ROS General: Fatigue as above Skin: No [...] file Gets together: Not on file Attends religion service: Not on file Active member of [...] Outpatient Medications Medication Sig Dispense Refill ??? zvtamrp-hyqwnmkszdrbl-xrqzabas 250-250-65 MG tablet Take 1 tablet by [...] No current facility-administered medications for this visit. Facility-Administered Medications Ordered in Other Visits Medication Dose Route Frequency Provider Last Rate Last Dose ??? cyanocobalamin (B-12) injection 1,000 mcg 1,000 mcg Intramuscular Weekly Roberta Alex MD 1,000 mcg at 03/04/20 1209 Allergies Allergen Reactions ??? Bee Venom Anaphylaxis ??? Shellfish Allergy Anaphylaxis Patient Active Problem List Diagnosis ??? Anemia ??? Hepatitis C virus infection without hepatic coma ??? Polysubstance abuse (CMS/HCC) ??? Thrombocytopenia affecting (CMS/HCC) ??? Transaminitis ??? Twin ??? Iron deficiency anemia secondary to inadequate dietary iron intake ??? Other dietary vitamin B12 deficiency anemia Vitals Height: 5' 3 (1.6 m) , Weight: 69.5 kg (153 lb 3.5 oz) , BSA (Calculated - sq m): 1.76 sq meters , BP: 127/76 , Temp: 97.2 ??F (36.2 ??C) , Pulse: 105 , Resp: 20 Physical Exam Constitutional General [...] ABS. NEUTROPHILS Date Value Ref Range Status 03/04/2020 7.42 1.60 - 8.30 x10'3/uL Final WBC Date Value Ref Range Status 03/04/2020 9.7 4.5 - 10.8 x10'3/uL Final HGB Date Value Ref Range Status 03/04/2020 10.8 (L) 12.0 - 16.0 G/DL Final HCT Date Value Ref Range Status 03/04/2020 34.8 (L) 36.0 - 47.0 % Final PLT Date Value Ref Range Status 03/04/2020 42 (L) 150 - 350 x10'3/uL Final Assessment and Plan 1. Severe iron deficiency anemia: Acute on chronic. Likely exacerbated due to nutritional deficiencies, high iron requirements from twin gestation. Poor care. S/P IV Venofer ~800mg in 12/2019. Repeat iron studies continue to be low. We will continue with IV Venofer x4 more doses. Recheck ferritin, CBC. Hgb/MCV improving. ??Continue on oral iron supplements. 2. 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 No indication for treatment unless counts<30 K or bleeding or for safe delivery. Depending upon the delivery route-we can consider prednisone 1 mg/kg for 2 weeks if she needs to tolerate neuraxial anesthesia for , if there is any emergency then IVIG, platelet transfusions can be given. Dexamet hasone x4 days is a good consideration for and to serve for ITP treatment. She was strongly advised to follow-up with her high density talc coater operator/GYN and also close monitoring on blood counts. 3.Vitamin B12 deficiency: IF-AB negative. S/P B12 injections on a weekly basis and then continue onoral high-dose 1000MCG daily. She did not take oral meds for couple weeks, admitted non compliance.Will provide with additional B12 sc inj 4. Folate def: Poor care. Twin gestation. [...] given thrombocytopenia. Less likely antiphophopholipid syndrome and Rheum consult pending. Repeat anticardiolipin antibody ordered. Time Spent: Approximately 25 minutes was spent in direct patient consultation and the majority of that time (>50%) was spent on counseling and coordination of care. Roberta Alex MD CC: Alejandro Blevins MD CC: Dr Machelle Costello MD documented in this encounter Plan of Treatment Upcoming Encounters Date Type Department Care Team (Late st Contact Info) Description 09/25/2024 11:30 AM BOX LIDDER Appointment [facility] [address] [place] [address] Roberta Alex MD [address] [place], [place] [address] 09/25/2024 11:40 AM BOX LIDDER Office Visit [facility] [address] [place] [address] Roberta Alxe MD [address] [place] [id number] documented as of this encounter Results * (ABNORMAL) CBC W/DIFF AUTOMATED (03/25/2020 11:45 AM CDT) WBC 8.6 4.5 - 10.8 x10'3/uL 03/25/2020 12:05 PM CDT [facility] RBC 4.05(L) 4.10 - 5.40 x10'6/uL 03/25/2020 12:05 PM CDT [facility] HGB 10.8(L) 12.0 - 16.0 G/DL 03/25/2020 12:05 PM CDT [facility] HCT 34.3(L) 36.0 - 47.0 % 03/25/2020 12:05 PM CDT [facility] MCV 84.7 78.0 - 100.0 FL 03/25/2020 12:05 PM CDT [facility] MCH 26.7(L) 27.0 - 31.0 PG 03/25/2020 12:05 PM CDT [facility] MCHC 31.5(L) 33.0 - 36.0 G/DL 03/25/2020 12:05 PM CDT [facility] RDW 20.8(H) 11.5 - 14.5 % 03/25/2020 12:05 PM CDT [facility] PLT 35(L) 150 - 350 x10'3/uL 03/25/2020 12:05 PM CDT [facility] MPV RESULTS NOT AVAILABLE 7.4 - 10.4 FL 03/25/2020 12:05 PM CDT [facility] DIFFERENTIAL COMMENT NORMAL REFERENCE RANGE NOT ESTABLISHED FOR THE PROPORTIONAL LEUKOCYTE DIFFERENTIAL. 03/25/2020 12:05 PM CDT [facility] SEG NEUTROPHILS 77.0 % 0 12:31 PM CDT [facility] LYMPHOCYTES 15.4 % 03/25/2020 12:31 PM CDT [facility] MONOCYTES 5.5 % 03/25/2020 12:31 PM CDT [facility] EOSINOPHILS 0.9 % 03/25/2020 12:31 PM CDT [facility] BASOPHILS 0.5 % 03/25/2020 12:31 PM CDT [facility] IMMATURE GRANS % 0.7 % 03/25/20 20 12:31 PM CDT [facility] NRBC 0.0 % 03/25/2020 12:31 PM CDT [facility] ABS. NEUTROPHILS 6.63 1.60 - 8.30 x10'3/uL 03/25/2020 12:31 PM CDT [facility] ABS. LYMPHOCYTES 1.32 0.80 - 4.70 x10'3/uL 03/25/2020 12:31 PM CDT [facility] ABS. MONOCYTES 0.47 0.00 - 1.50 x10'3/uL 03/25/2020 12:31 PM CDT [facility] ABS. EOSINOPHILS 0.08 0.00 - 0.40 x10'3/uL 03/25/2020 12:31 PM CDT [facility] ABS. BASOPHILS 0.04 0.00 - 0.20 x10'3/uL 03/25/2020 12:31 PM CDT [facility] ABS. IMMATURE GRANULOCYTES 0.06(H) 0.00 - 0.03 x10'3/uL 03/25/2020 12:31 PM CDT [facility] ABS. NUCLEATED RBC'S 0.00 0.00 x10'3/uL 03/25/2020 12:31 PM CDT [facility] PLT MORPH. DECREASED 03/25/2020 12:31 PM CDT [facility] RBC MORPHOLOGY 2+ 03/25/2020 12:31 PM CDT [facility] Comment: ANISOCYTOSIS 1+ MICROCYTES 1+ POIKILOCYTOSIS 03/25/2020 11:4 5 AM CDT Roberta Alex MD LABORATORY Final Result Performing Organization Address City/[facility]/ZIP Co de Phone Number [facility] [address] [place] [address], * VITAMIN B-12 (03/25/2020 11:45 AM CDT) Pathologist [facility] VITAMIN B12 S/P/B 326 193 - 986 PG/ML 03/26/2020 5:07 PM CDT [facility] 03/25/2020 11:4 5 AM CDT Roberta Alex MD LABORATORY Final Result Performing Organization Address City/[facility]/ZIP Co de Phone Number [facility] [address] [place] [address], [phone] * (ABNORMAL) CARDIOLIPIN ANTIBODIES (IGG,IGA,IGM) (03/25/2020 11:45 AM CDT) CARDIOLIPIN AB IGG <14 <=14 GPL 2019 9:25 PM CDT [facility] Comment: Cardiolipin Ab (IgG) Reference Range: Value ? Interpretation ? < or = 14 ? Negative 15 - 20 ? Indeterminate 21 - 80 ? Low to Medium Positive > 80 ?High Positive CARDIOLIPIN AB IGM 37(H) <=12 MPL 2019 9:25 PM CDT [facility] Comment: Cardiolipin Ab (IgM) Reference [...] drug therapy or aging. Test Performed by [employer] [employer] [facility], [address] [place] [address] Hank Landin M.D., Ph.D., Director of Laboratories , [facility] [id number] CARDIOLIPIN AB IGA <11 <=11 APL 2019 9:25 PM CDT [facility] Comment: Cardiolipin Ab (IgA) Reference Range: Value ? Interpretation ? < or = 11 ? Negative 12 - 20 ? Indeterminate 21 - 80 ? Low to Medium Positive > 80 ?High Positive 03/25/2020 11:4 5 AM CDT Roberta Alex MD LABORATORY Final Result Performing Organization Address City/State/[facility] Co de Phone Number [facility] [address] [place] [address], documented in this encounter Visit Diagnoses Diagnosis Iron deficiency anemia secondary to inadequate dietary iron intake- Primary Other dietary vitamin B12 deficiency anemia Anti-cardiolipin antibody positive Other and unspecified nonspecific immunological findings Chronic hepatitis C without hepatic coma (CMS/HCC HHS/HCC) Polysubstance abuse (CMS/HCC HHS/HCC) Other, mixed, or unspecified nondependent drug abuse, unspecified Dichorionic diamniotic twin in third trimester (HHS/HCC) Twin , antepartum documented in this encounter Care Teams Fundraising Director Relationship Specialty Start Date End Date Alejandro Blevins MD PCP - General FAMILY PRACTICE 12/10/19 documented as of this encounter
--- OUTSIDE RECORDS SUMMARY | 2024-07-11 05:44 | XMS_ITS | Encounter Summary ---
Author Organization [facility] Address [address] [place] [address]. [place], [place] [address] [place] [address] Care Team Providers Care Rejogger Name Role Phone Alejandro Blevins MD Primary Care Provider [phone] Encounter Details Date Type Department Care Team (Latest Contact Info) Description 03/04/2020 Travel Social History Tobacco Use Types Packs/Day Years Used Date Smoking Tobacco: Every Day Smokeless Tobacco: Never Comments Yes Sex and Gender Information Value Date Recorded Sex Assigned at Not on file Legal Sex Female 11:30 PM KNITTING MACHINE OPERATOR Gender Identity Female 11/10/2021 3:09 [...] st Contact Info) Description 09/25/2024 11:30 AM KNITTING MACHINE OPERATOR Appointment [facility] [address] [place] [address] Roberta Alex MD [address] [place] [address] 09/25/2024 11:40 AM KNITTING MACHINE OPERATOR Office Visit [facility] [address] [place] [address] Roberta Alex MD [address] [place] [address] documented as of this encounter Visit Diagnoses Not on filedocumented in this encounter Care Teams Rejogger Relationship Specialty Start Date End Date Alejandro Blevins MD PCP - General FAMILY PRACTICE 12/10/19 documented as of this encounter
--- OUTSIDE RECORDS SUMMARY | 2024-07-11 05:44 | XMS_ITS | Encounter Summary ---
Author Organization [facility] Address [address] [place] [address]. [place] [address] [place] [address] Care Team Providers Care Elastic Yarn Twister Helper Name Role Phone Alejandro Blevins MD Primary Care Provider [phone] Reason for Visit * Reason Comments Infusion Therapy * Treatment/Therapy Plan Authorization (Routine) - Closed Specialty Diagnoses / Procedures Referred By Contac t Referred To Contact Diagnoses Iron deficiency anemia secondary to inadequate dietary iron intake Procedures IRON SUCROSE INJ, 20 MG Roberta Alex MD [address] [place] [address] Phone: tel: fax: [facility] [place] [address] Phone: tel: Referral ID Status Reason Start Date Expiration Date Visits Re quested Visits Authorized [id number] Closed 12/19/2019 04/23/2020 1 3 Encounter Details Date Type Department Care Team (Latest Contact Info) Description 03/04/2020 10:44 AM CDT - 03/04/2020 11:59 PM CDT Hospital Encounter [facility] [place] [address] Roberta Alex MD [address] [place] [phone] Infusion Therapy Discharge Disposition: Home or Self Care (Routine Discharge) Social History Tobacco Use Types Packs/Day Years Used Date Smoking Tobacco: Every Day Smokeless Tobacco: Never Comments Yes Sex and Gender Information Value Date Recorded Sex Assigned at Not on file Legal Sex Female 11:30 PM INFORMATION TECHNOLOGY INTERNSHIP Gender Identity Female 11/10/2021 3:09 PM CDT [...] Time Taken Comments Blood Pressure 127/76 03/04/2020 11:30 AM CDT Pulse 105 03/04/2020 11:30 AM CDT Temperature 36.2 ??C (97.2 ??F) 03/04/2020 11:30 AM C DT Respiratory Rate 20 03/04/2020 11:30 AM CDT Oxygen Saturation - - Inhaled Oxygen Concentration - - Weight - - Height - - Body Mass Index - - documented in this encounter Discharge Instructions * Patient Instructions* Kamilah Thompson RN - 03/04/2020 1:34 PM CDT Call the infusion center with any post infusion concerns at [phone]. Return as scheduled for iron infusion and B12 on 03/14/20. documented in this encounter Medications at Time [...] encounter Progress Notes * Cecilia Healy - 03/05/2020 1:45 PM CDTEncounter addended by: Cecilia Healy on: 03/05/2020 1:45 PM Actions taken: Charge Capture section accepted * Kitty Leon RN - 03/04/2020 11:56 AM CDT PATIENT ASSESSMENT: Admitted via: Ambulatory Admitted from: Home Planned procedure: Scheduled venofer and B12 doses Patient information verified by KITTY LEON RN. Barriers to learning: None Patient identity confirmed - Name and date of and Allergies Verified LOC: Alert Emotional: Calm Motor Activity: Gait steady Respiratory: Regular and even Circulatory: NA Nutrition: Tolerated diet well Elimination: Voiding NURSING DIAGNOSIS: Risk of injury GOALS: Patient will be free from signs/symptoms of physical injury * Kamilah Thompson RN - 03/04/2020 11:55 AM CDT PATIENT ASSESSMENT: Admitted via: Ambulatory Admitted from: Home Planned procedure: INFUSION Patient information verified by Kamilah Thompson RN. Barriers to learning: None Patient identity confirmed - Name and date of and Allergies Verified LOC: Alert Emotional: Anxious Motor Activity: Gait steady Respiratory: Regular and even Circulatory: N/A Nutrition: Tolerated diet well Elimination: Voiding NURSING DIAGNOSIS: Risk of altered hemodynamic and respiratory status GOALS: Patient will maintain hemodynamic and respiratory status documented in this encounter Plan of Treatment Upcoming Encounters Date Type Department Care Team (Late st Contact Info) Description 09/25/2024 11:30 AM INFORMATION TECHNOLOGY INTERNSHIP Appointment [facility] [address] [place] [address] Roberta Alex MD [address] [place] [address] 09/25/2024 11:40 AM INFORMATION TECHNOLOGY INTERNSHIP Office Visit [facility] [address] [place] [address] Roberta Alex MD [address] [place] [address] documented as of this encounter Visit Diagnoses Diagnosis Iron deficiency anemia secondary to inadequate dietary iron intake- Primary Other dietary vitamin B12 deficiency anemia documented in this encounter Administered Medications Inactive Administered Medications - up to 3 most recent administrations Medication Order MAR Action Action Date Dose Rate Site cyanocobalamin (B-12) injection 1,000 mcg 1,000 mcg, Intramuscular, Weekly, 2 doses, First dose on Tue03/04/20 at 1215, Last dose on Tue03/11/20 at 0900Indications:Iron deficiency anemia secondary to inadequate dietary iron intake,Other dietary vitamin B12 deficiency anemia Given 03/04/2020 12:09 PM CDT 1,000 mcg Right Deltoid iron sucrose (VENOFER) 200 mg in sodium chloride 0.9 % 100 mL IVPB 200 mg, Intravenous, at 400 mL/hr, Once, 1 dose, On Tue03/04/20 at 1215Indications:Iron deficiency anemia secondary to inadequate dietary iron intake New Bag 03/04/2020 12:09 PM CDT 200 mg 100 mL/hr documented in this encounter Care Teams Elastic Yarn Twister Helper Relationship Specialty Start Date End Date Alejandro Blevins MD PCP - General FAMILY PRACTICE 12/10/19 documented as of this encounter
--- OUTSIDE RECORDS SUMMARY | 2024-07-11 05:44 | XMS_ITS | Encounter Summary ---
Author Organization [facility] Address [facility] [place] [address] [place] [address] Care Team Providers Care Jigger Machine Operator Name Role Phone Unavailable Primary Care Provider Unavailabl e Encounter Details Date Type Department Care Team (Late Contact Info) Description 04/30/2010 Abstract [facility] [address] [place] [address] Joseph Iqbal MD [address] [place] [address] Social History Tobacco Use Types Packs/Day Years Used Date Smoking Tobacco: Never Assessed Comments Unknown Sex and Gender Information Value Date Recorded Sex Assigned at Not on file Legal Sex Female 11:30 PM KARDEX CLERK Gender Identity Female 11/10/2021 3:09 PM CDT Sexual Orientation Straight 11/10/2021 3: 09 PM CDT documented as of this encounter Plan of Treatment Upcoming Encounters Date Type Department Care Team (Late Contact Info) Description 09/25/2024 11:30 AM KARDEX CLERK Appointment [facility] [address] [place] [address] Roberta Alex MD [address] [place] [address] 09/25/2024 11:40 AM KARDEX CLERK Office Visit [facility] [address] [place] [address] Roberta Alex MD [address] [place] [address] documented as of this encounter Visit Diagnoses Diagnosis Pain in joint, lower leg documented in this encounter
--- OUTSIDE RECORDS SUMMARY | 2024-07-11 05:44 | XMS_ITS | Encounter Summary ---
Author Organization [facility] Address [facility] [place] [address] [place] [address] Care Team Providers Care Assistant Manager Pt Name Role Phone Unavailable Primary Care Provider Unavailabl e Encounter Details Date Type Department Care Team (Late Contact Info) Description 06/15/2013 Abstract [facility] [place] [address] Cirilo Schultz MD [address] [place] [phone] Social History Tobacco Use Types Packs/Day Years Used Date Smoking Tobacco: Never Assessed Comments Unknown Sex and Gender Information Value Date Recorded Sex Assigned at Not on file Legal Sex Female 11:30 PM BALLROOM DANCER Gender Identity Female 11/10/2021 3:09 PM CDT Sexual Orientation Straight 11/10/2021 3: 09 PM CDT documented as of this encounter Plan of Treatment Upcoming Encounters Date Type Department Care Team (Late Contact Info) Description 09/25/2024 11:30 AM BALLROOM DANCER Appointment [facility] [address] [place] [address] Roberta Alex MD [address] [place] [address] 09/25/2024 11:40 AM BALLROOM DANCER Office Visit [facility] [address] [place] [address] Roberta Alex MD [address] [place] [address] documented as of this encounter Visit Diagnoses Diagnosis Thrombocytopenia (CMS/HCC) Thrombocytopenia, unspecified documented in this encounter
--- OUTSIDE RECORDS SUMMARY | 2024-07-11 05:44 | XMS_ITS | Encounter Summary ---
Author Organization [facility] Address [facility] [place] [address] [place] [address] Care Team Providers Care Fisheries Management Biologist Name Role Phone Alejandro Blevins MD Primary Care Provider [phone] Encounter Details Date Type Department Care Team (Late Contact Info) Description 02/12/2020 Orders Only [facility] [place] [address] Kamilah Thompson RN Social History Tobacco Use Types Packs/Day Years Used Date Smoking Tobacco: Every Day Smokeless Tobacco: Never Comments Yes Sex and Gender Information Value Date Recorded Sex Assigned at Not on file Legal Sex Female 11:30 PM CNC MILL PROGRAMMER Gender Identity Female 11/10/2021 3:09 PM CDT [...] (Late Contact Info) Description 09/25/2024 11:30 AM CNC MILL PROGRAMMER Appointment [facility] [place] [address] [place] [address] Roberta Alex MD [address] [place] [address] 09/25/2024 11:40 AM CNC MILL PROGRAMMER Office Visit [facility] [place] [address] [address] Roberta Alex MD [address] [place] [address] documented as of this encounter Results * FOLIC ACID SERUM (02/15/2020 11:35 AM CDT) FOLATE 10.2 3.1 - 17.5 NG/ML 02/16/2020 5:23 PM CDT [facility] Comment:MILD HEMOLYSIS, RESU LT MAY BE AFFECTED. 02/15/2020 11:3 5 AM CDT Roberta Alex MD LABORATORY Final Result Performing Organization Address City/[facility]/ZIP Co de Phone Number [facility] [address] [place] [address], [id number] * VITAMIN B-12 (02/15/2020 11:35 AM CDT) VITAMIN B12 S/P/B 281 193 - 986 PG/ML 02/16/2020 5:23 PM CDT [facility] 02/15/2020 11:3 5 AM CDT Roberta Alex MD LABORATORY Final Result [facility] [address] [place] [address], [id number] documented in this encounter Visit Diagnoses Diagnosis Anemia, unspecified type- Primary documented in this encounter Care Teams Fisheries Management Biologist Relationship Specialty Start Date End Date Alejandro Blevins MD PCP - General FAMILY PRACTICE 12/10/19 documented as of this encounter
--- OUTSIDE RECORDS SUMMARY | 2024-07-11 05:45 | XMS_ITS | Encounter Summary ---
Author Organization [facility] Address [facility] [place] [address] [place] [address] Care Team Providers Care Inspector Final Assembly Mechanical Name Role Phone Unavailable Primary Care Provider Unavailabl e Encounter Details Date Type Department Care Team (Late Contact Info) Description 07/05/2005 Abstract [facility] [address] [place] [address] Cirilo Schultz MD [address] [place] [phone] Social History Tobacco Use Types Packs/Day Years Used Date Smoking Tobacco: Never Assessed Comments Unknown Sex and Gender Information Value Date Recorded Sex Assigned at Not on file Legal Sex Female 11:30 PM PAID SEARCH ANALYST Gender Identity Female 11/10/2021 3:09 PM CDT Sexual Orientation Straight 11/10/2021 3: 09 PM CDT documented as of this encounter Plan of Treatment Upcoming Encounters Date Type Department Care Team (Late Contact Info) Description 09/25/2024 11:30 AM PAID SEARCH ANALYST Appointment [facility] [address] [place] [address] Roberta Alex MD [address] [place] [address] 09/25/2024 11:40 AM PAID SEARCH ANALYST Office Visit [facility] [address] [place] [address] Roberta Alex MD [address] [place] [address] documented as of this encounter Visit Diagnoses Not on filedocumented in this encounter
--- OUTSIDE RECORDS SUMMARY | 2024-07-11 05:45 | XMS_ITS | Encounter Summary ---
Author Organization [facility] Address Critical access hospital6 [facility] [place] [address] [place] [address] Care Team Providers Care Tv News Director Name Role Phone Unavailable Primary Care Provider Unavailabl e Encounter Details Date Type Department Care Team (Late Contact Info) Description 11/08/2005 Abstract [facility] [address] [place] [address] Endy Bagley MD [address] [place] [phone] Social History Tobacco Use Types Packs/Day Years Used Date Smoking Tobacco: Never Assessed Comments Unknown Sex and Gender Information Value Date Recorded Sex Assigned at Not on file Legal Sex Female 11:30 PM BIOMEDICAL ENGINEERING TECHNOLOGIST Gender Identity Female 11/10/2021 3:09 PM CDT Sexual Orientation Straight 11/10/2021 3: 09 PM CDT documented as of this encounter Plan of Treatment Upcoming Encounters Date Type Department Care Team (Late Contact Info) Description 09/25/2024 11:30 AM BIOMEDICAL ENGINEERING TECHNOLOGIST Appointment [facility] [address] [place] [address] Roberta Alex MD [address] [place] [address] 09/25/2024 11:40 AM BIOMEDICAL ENGINEERING TECHNOLOGIST Office Visit [facility] [address] [place] [address] Roberta Alex MD [address] [place] [phone] (work) documented as of this encounter Visit Diagnoses Not on filedocumented in this encounter
--- OUTSIDE RECORDS SUMMARY | 2024-07-11 05:45 | XMS_ITS | Encounter Summary ---
Author Organization [facility] Address [address] [place] [address]. [place] [address] [place] [address] Care Team Providers Care Hplc Chemist Name Role Phone Unavailable Primary Care Provider Unavailabl e Encounter Details Date Type Department Care Team (Late st Contact Info) Description 10/12/2007 Abstract [facility] [address] [place] [address] Social History Tobacco Use Types Packs/Day Years Used Date Smoking Tobacco: Never Assessed Comments Unknown Sex and Gender Information Value Date Recorded Sex Assigned at Not on file Legal Sex Female 11:30 PM MANAGER LATIN Gender Identity Female 11/10/2021 3:09 PM CDT Sexual Orientation Straight 11/10/2021 3: 09 PM CDT documented as of this encounter Plan of Treatment Upcoming Encounters Date Type Department Care Team (Late st Contact Info) Description 09/25/2024 11:30 AM MANAGER LATIN Appointment [facility] [address] [place] [address] Roberta Alex MD [address] [place] [address] 09/25/2024 11:40 AM MANAGER LATIN Office Visit [facility] [address] [place] [address] Roberta Alex MD [address] [place] [address] documented as of this encounter Visit Diagnoses Not on filedocumented in this encounter
--- OUTSIDE RECORDS SUMMARY | 2024-07-11 05:45 | XMS_ITS | Encounter Summary ---
Author Organization [facility] Address [facility] [place] [address] [place] [address] Care Team Providers Care Product Promoter Sales Person Name Role Phone Unavailable Primary Care Provider Unavailabl e Encounter Details Date Type Department Care Team (Late Contact Info) Description 04/17/2008 Abstract [facility] [address] [place] [address] Cirilo Schultz MD [address] [place] [phone] Social History Tobacco Use Types Packs/Day Years Used Date Smoking Tobacco: Never Assessed Comments Unknown Sex and Gender Information Value Date Recorded Sex Assigned at Not on file Legal Sex Female 11:30 PM LABOR ECONOMICS TEACHER Gender Identity Female 11/10/2021 3:09 PM CDT Sexual Orientation Straight 11/10/2021 3: 09 PM CDT documented as of this encounter Plan of Treatment Upcoming Encounters Date Type Department Care Team (Late Contact Info) Description 09/25/2024 11:30 AM LABOR ECONOMICS TEACHER Appointment [facility] [address] [place] [address] Roberta Alex MD [address] [place] [address] 09/25/2024 11:40 AM LABOR ECONOMICS TEACHER Office Visit [facility] [address] [place] [address] Roberta Alex MD [address] [place] [address] documented as of this encounter Visit Diagnoses Not on filedocumented in this encounter
--- OUTSIDE RECORDS SUMMARY | 2024-07-11 05:45 | XMS_ITS | Encounter Summary ---
Author Organization [facility] Address [facility]6 [facility] [place] [address] [place] [address] Care Team Providers Care Siebel Architect Name Role Phone Unavailable Primary Care Provider Unavailabl e Encounter Details Date Type Department Care Team (Late Contact Info) Description 09/03/2005 Abstract [facility] [address] [place] [address] Endy Bagley MD [address] [place] [phone] Social History Tobacco Use Types Packs/Day Years Used Date Smoking Tobacco: Never Assessed Comments Unknown Sex and Gender Information Value Date Recorded Sex Assigned at Not on file Legal Sex Female 11:30 PM BUSINESS OBJECTS DEVELOPER Gender Identity Female 11/10/2021 3:09 PM CDT Sexual Orientation Straight 11/10/2021 3: 09 PM CDT documented as of this encounter Plan of Treatment Upcoming Encounters Date Type Department Care Team (Late Contact Info) Description 09/25/2024 11:30 AM BUSINESS OBJECTS DEVELOPER Appointment [facility] [address] [place] [address] Roberta Alex MD [address] [place] [address] 09/25/2024 11:40 AM BUSINESS OBJECTS DEVELOPER Office Visit [facility] [address] [place] [address] Roberta Alex MD [address] [place] [address] (work) documented as of this encounter Visit Diagnoses Not on filedocumented in this encounter
--- OUTSIDE RECORDS SUMMARY | 2024-07-11 05:45 | XMS_ITS | Encounter Summary ---
Author Organization [facility] Address [facility] [place] [address] [place] [address] Care Team Providers Care Scoreboard Operator Name Role Phone Unavailable Primary Care Provider Unavailabl e Encounter Details Date Type Department Care Team (Late Contact Info) Description 06/15/2007 Abstract [facility] [address] [place] [address] Boy Bustillos MD [address] [place] [address] Social History Tobacco Use Types Packs/Day Years Used Date Smoking Tobacco: Never Assessed Comments Unknown Sex and Gender Information Value Date Recorded Sex Assigned at Not on file Legal Sex Female 11:30 PM TAG METER OPERATOR Gender Identity Female 11/10/2021 3:09 PM CDT Sexual Orientation Straight 11/10/2021 3: 09 PM CDT documented as of this encounter Plan of Treatment Upcoming Encounters Date Type Department Care Team (Late Contact Info) Description 09/25/2024 11:30 AM TAG METER OPERATOR Appointment [facility] [address] [address] Roberta Alex MD [address] [place] [address] 09/25/2024 11:40 AM TAG METER OPERATOR Office Visit [facility] [address] [address] Roberta Alex MD [address] [place] [address] documented as of this encounter Visit Diagnoses Not on filedocumented in this encounter
--- OUTSIDE RECORDS SUMMARY | 2024-07-11 05:45 | XMS_ITS | Encounter Summary ---
Author Organization [facility] Address [address] [place] [address]. [place] [address] [place] [address] Care Team Providers Care Installment Loan Collector Name Role Phone Unavailable Primary Care Provider Unavailabl e Encounter Details Date Type Department Care Team (Late st Contact Info) Description 05/09/2008 Abstract [facility] [address] [place] [address] Social History Tobacco Use Types Packs/Day Years Used Date Smoking Tobacco: Never Assessed Comments Unknown Sex and Gender Information Value Date Recorded Sex Assigned at Not on file Legal Sex Female 11:30 PM SUPERVISOR JEWELRY DEPARTMENT Gender Identity Female 11/10/2021 3:09 PM CDT Sexual Orientation Straight 11/10/2021 3: 09 PM CDT documented as of this encounter Plan of Treatment Upcoming Encounters Date Type Department Care Team (Late st Contact Info) Description 09/25/2024 11:30 AM SUPERVISOR JEWELRY DEPARTMENT Appointment [facility] [address] [place] [address] Roberta Alex MD [address] [place] [address] 09/25/2024 11:40 AM SUPERVISOR JEWELRY DEPARTMENT Office Visit [facility] [address] [place] [address] Roberta Alex MD [address] [place] [address] documented as of this encounter Visit Diagnoses Not on filedocumented in this encounter
--- OUTSIDE RECORDS SUMMARY | 2024-07-11 05:45 | XMS_ITS | Encounter Summary ---
Author Organization [facility] Address [facility]6 [facility] [place] [address] [place] [address] Care Team Providers Care Bi Manager Name Role Phone Unavailable Primary Care Provider Unavailabl e Encounter Details Date Type Department Care Team (Late Contact Info) Description 04/15/2008 Abstract [facility] [address] [place] [address] Cirilo Schultz MD [address] [place] [phone] Social History Tobacco Use Types Packs/Day Years Used Date Smoking Tobacco: Never Assessed Comments Unknown Sex and Gender Information Value Date Recorded Sex Assigned at Not on file Legal Sex Female 11:30 PM HEALTH SAFETY AND ENVIRONMENT MANAGER Gender Identity Female 11/10/2021 3:09 PM CDT Sexual Orientation Straight 11/10/2021 3: 09 PM CDT documented as of this encounter Plan of Treatment Upcoming Encounters Date Type Department Care Team (Late Contact Info) Description 09/25/2024 11:30 AM HEALTH SAFETY AND ENVIRONMENT MANAGER Appointment [facility] [address] [place] [address] Roberta Alex MD [address] [place] [address] 09/25/2024 11:40 AM HEALTH SAFETY AND ENVIRONMENT MANAGER Office Visit [facility] [address] [place] [address] Roberta Alex MD [address] [place] [address] documented as of this encounter Visit Diagnoses Not on filedocumented in this encounter
--- OUTSIDE RECORDS SUMMARY | 2024-07-11 05:45 | XMS_ITS | Encounter Summary ---
Author Organization [facility] Address Critical access hospital6 [facility] [place] [address] [place] [address] Care Team Providers Care Pe Electrical Engineer Name Role Phone Unavailable Primary Care Provider Unavailabl e Encounter Details Date Type Department Care Team (Late Contact Info) Description 10/05/2007 Abstract [facility] [address] [place] [address] Cirilo Schultz MD [address] [place] [phone] Social History Tobacco Use Types Packs/Day Years Used Date Smoking Tobacco: Never Assessed Comments Unknown Sex and Gender Information Value Date Recorded Sex Assigned at Not on file Legal Sex Female 11:30 PM CHARGE HAND Gender Identity Female 11/10/2021 3:09 PM CDT Sexual Orientation Straight 11/10/2021 3: 09 PM CDT documented as of this encounter Plan of Treatment Upcoming Encounters Date Type Department Care Team (Late Contact Info) Description 09/25/2024 11:30 AM CHARGE HAND Appointment [facility] [address] [place] [address] Roberta Alex MD [address] [place] [address] 09/25/2024 11:40 AM CHARGE HAND Office Visit [facility] [address] [place] [address] Roberta Alex MD [address] [place] [address] documented as of this encounter Visit Diagnoses Not on filedocumented in this encounter
--- OUTSIDE RECORDS SUMMARY | 2024-07-11 05:45 | XMS_ITS | Encounter Summary ---
Author Organization [facility] Address [facility] [facility] [place] [address] [place] [address] Care Team Providers Care Radiation Control Technician Name Role Phone Unavailable Primary Care Provider Unavailabl e Encounter Details Date Type Department Care Team (Late Contact Info) Description 03/07/2005 Abstract [facility] [address] [place] [address] Cirilo Schultz MD [address] [place] [phone] Social History Tobacco Use Types Packs/Day Years Used Date Smoking Tobacco: Never Assessed Comments Unknown Sex and Gender Information Value Date Recorded Sex Assigned at Not on file Legal Sex Female 11:30 PM MAILING CLERK Gender Identity Female 11/10/2021 3:09 PM CDT Sexual Orientation Straight 11/10/2021 3: 09 PM CDT documented as of this encounter Plan of Treatment Upcoming Encounters Date Type Department Care Team (Late Contact Info) Description 09/25/2024 11:30 AM MAILING CLERK Appointment [facility] [address] [place] [address] Roberta Alex MD [address] [place] [address] 09/25/2024 11:40 AM MAILING CLERK Office Visit [facility] [address] [place] [address] Roberta Alex MD [address] [place] [address] documented as of this encounter Visit Diagnoses Not on filedocumented in this encounter
--- OUTSIDE RECORDS SUMMARY | 2024-07-11 05:45 | XMS_ITS | Encounter Summary ---
Author Organization [facility] Address [facility] [place] [address] [place] [address] Care Team Providers Care Residential Youth Counselor Name Role Phone Unavailable Primary Care Provider Unavailabl e Encounter Details Date Type Department Care Team (Late Contact Info) Description 07/08/2005 Abstract [facility] [address] [place] [address] Cirilo Schultz MD [address] [place] [phone] Social History Tobacco Use Types Packs/Day Years Used Date Smoking Tobacco: Never Assessed Comments Unknown Sex and Gender Information Value Date Recorded Sex Assigned at Not on file Legal Sex Female 11:30 PM SECURITY OFFICER SUPERVISOR Gender Identity Female 11/10/2021 3:09 PM CDT Sexual Orientation Straight 11/10/2021 3: 09 PM CDT documented as of this encounter Plan of Treatment Upcoming Encounters Date Type Department Care Team (Late Contact Info) Description 09/25/2024 11:30 AM SECURITY OFFICER SUPERVISOR Appointment [facility] [address] [place] [address] Roberta Alex MD [address] [place] [address] 09/25/2024 11:40 AM SECURITY OFFICER SUPERVISOR Office Visit [facility] [address] [place] [address] Roberta Alex MD [address] [place] [address] documented as of this encounter Visit Diagnoses Not on filedocumented in this encounter
--- OUTSIDE RECORDS SUMMARY | 2024-07-11 05:45 | XMS_ITS | Encounter Summary ---
Author Organization [facility] Address Critical access hospital6 [place] [address] [place] [address] Care Team Providers Care Card Reader Name Role Phone Unavailable Primary Care Provider Unavailabl e Encounter Details Date Type Department Care Team (Late Contact Info) Description 04/11/2008 Abstract [facility] [address] [place] [address] Cirilo Schultz MD [address] [place] [phone] Social History Tobacco Use Types Packs/Day Years Used Date Smoking Tobacco: Never Assessed Comments Unknown Sex and Gender Information Value Date Recorded Sex Assigned at Not on file Legal Sex Female 11:30 PM FIELD MECHANICAL METER TESTER Gender Identity Female 11/10/2021 3:09 PM CDT Sexual Orientation Straight 11/10/2021 3: 09 PM CDT documented as of this encounter Plan of Treatment Upcoming Encounters Date Type Department Care Team (Late Contact Info) Description 09/25/2024 11:30 AM FIELD MECHANICAL METER TESTER Appointment [facility] [address] [place] [address] Roberta Alex MD [address] [place] [address] 09/25/2024 11:40 AM FIELD MECHANICAL METER TESTER Office Visit [facility] [address] [place] [address] Roberta Alex MD [address] [place] [address] documented as of this encounter Visit Diagnoses Not on filedocumented in this encounter
--- OUTSIDE RECORDS SUMMARY | 2024-07-11 05:45 | XMS_ITS | Encounter Summary ---
Author Organization [facility] Address [facility] [place] [address] [place] [address] Care Team Providers Care Communications Program Manager Name Role Phone Unavailable Primary Care Provider Unavailabl e Encounter Details Date Type Department Care Team (Late Contact Info) Description 07/25/2005 Abstract [facility] [address] [place] [address] Cirilo Schultz MD [address] [place] [phone] Social History Tobacco Use Types Packs/Day Years Used Date Smoking Tobacco: Never Assessed Comments Unknown Sex and Gender Information Value Date Recorded Sex Assigned at Not on file Legal Sex Female 11:30 PM CLAY CASTER Gender Identity Female 11/10/2021 3:09 PM CDT Sexual Orientation Straight 11/10/2021 3: 09 PM CDT documented as of this encounter Plan of Treatment Upcoming Encounters Date Type Department Care Team (Late Contact Info) Description 09/25/2024 11:30 AM CLAY CASTER Appointment [facility] [address] [place] [address] Roberta Alex MD [address] [place] [address] 09/25/2024 11:40 AM CLAY CASTER Office Visit [facility] [address] [place] [address] Roberta Alex MD [address] [place] [address] documented as of this encounter Visit Diagnoses Not on filedocumented in this encounter
--- OUTSIDE RECORDS SUMMARY | 2024-07-11 05:45 | XMS_ITS | Encounter Summary ---
Author Organization [facility] Address [address] [place] [address]. [place], [place] [address] [place] [address] Care Team Providers Care Electric Trucker Name Role Phone Unavailable Primary Care Provider Unavailabl e Encounter Details Date Type Department Care Team (Late st Contact Info) Description 10/20/2007 Abstract [facility] [address] [place] [address] Heriberto Elam, Social History Tobacco Use Types Packs/Day Years Used Date Smoking Tobacco: Never Assessed Comments Unknown Sex and Gender Information Value Date Recorded Sex Assigned at Not on file Legal Sex Female 11:30 PM MEDICAL CARE MANAGER Gender Identity Female 11/10/2021 3:09 PM CDT Sexual Orientation Straight 11/10/2021 3: 09 PM CDT documented as of this encounter Plan of Treatment Upcoming Encounters Date Type Department Care Team (Late st Contact Info) Description 09/25/2024 11:30 AM MEDICAL CARE MANAGER Appointment [facility] [address] [place] [address] Roberta Alex MD [address] [place] [address] 09/25/2024 11:40 AM MEDICAL CARE MANAGER Office Visit [facility] [address] [place] [address] Roberta Alex MD [address] [place] [address] documented as of this encounter Visit Diagnoses Not on filedocumented in this encounter
--- OUTSIDE RECORDS SUMMARY | 2024-07-11 05:45 | XMS_ITS | Encounter Summary ---
Author Organization [facility] Address [address] [place] [address]. [place] [address] [place] [address] Care Team Providers Care Inbound Customer Service Representative Name Role Phone Unavailable Primary Care Provider Unavailabl e Encounter Details Date Type Department Care Team (Late st Contact Info) Description 11/24/2007 Abstract [facility] [address] [place] [address] , Agatha Chun MD Social History Tobacco Use Types Packs/Day Years Used Date Smoking Tobacco: Never Assessed Comments Unknown Sex and Gender Information Value Date Recorded Sex Assigned at Not on file Legal Sex Female 11:30 PM PACKAGER MACHINE Gender Identity Female 11/10/2021 3:09 PM CDT Sexual Orientation Straight 11/10/2021 3: 09 PM CDT documented as of this encounter Plan of Treatment Upcoming Encounters Date Type Department Care Team (Late st Contact Info) Description 09/25/2024 11:30 AM PACKAGER MACHINE Appointment [facility] [address] [place] [address] Roberta Alex MD [address] [place] [address] 09/25/2024 11:40 AM PACKAGER MACHINE Office Visit [facility] [place] [address] Roberta Alex MD [address] [place] [address] documented as of this encounter Visit Diagnoses Not on filedocumented in this encounter
--- OUTSIDE RECORDS SUMMARY | 2024-07-11 05:45 | XMS_ITS | Encounter Summary ---
Author Organization [facility] Address [facility] [place] [address] [place] [address] Care Team Providers Care Food And Nutrition Services Supervisor Name Role Phone Unavailable Primary Care Provider Unavailabl e Encounter Details Date Type Department Care Team (Late Contact Info) Description 02/02/2006 Abstract [facility] [address] [place] [address] Cirilo Schultz MD [address] [place] [phone] Social History Tobacco Use Types Packs/Day Years Used Date Smoking Tobacco: Never Assessed Comments Unknown Sex and Gender Information Value Date Recorded Sex Assigned at Not on file Legal Sex Female 11:30 PM LOCK AND DAM OPERATOR Gender Identity Female 11/10/2021 3:09 PM CDT Sexual Orientation Straight 11/10/2021 3: 09 PM CDT documented as of this encounter Plan of Treatment Upcoming Encounters Date Type Department Care Team (Late Contact Info) Description 09/25/2024 11:30 AM LOCK AND DAM OPERATOR Appointment [facility] [address] [place] [address] Roberta Alex MD [address] [place] [address] 09/25/2024 11:40 AM LOCK AND DAM OPERATOR Office Visit [facility] [address] [place] [address] Roberta Alex MD [address] [place] [address] documented as of this encounter Visit Diagnoses Not on filedocumented in this encounter
--- OUTSIDE RECORDS SUMMARY | 2024-07-11 05:45 | XMS_ITS | Encounter Summary ---
Author Organization [facility] Address [facility] [place] [address] [place] [address] Care Team Providers Care Auto Glass Installer Name Role Phone Unavailable Primary Care Provider Unavailabl e Encounter Details Date Type Department Care Team (Late Contact Info) Description 07/13/2005 Abstract [facility] [address] [place] [address] Cirilo Schultz MD [address] [place] [phone] Social History Tobacco Use Types Packs/Day Years Used Date Smoking Tobacco: Never Assessed Comments Unknown Sex and Gender Information Value Date Recorded Sex Assigned at Not on file Legal Sex Female 11:30 PM INSURANCE INSTRUCTOR Gender Identity Female 11/10/2021 3:09 PM CDT Sexual Orientation Straight 11/10/2021 3: 09 PM CDT documented as of this encounter Plan of Treatment Upcoming Encounters Date Type Department Care Team (Late Contact Info) Description 09/25/2024 11:30 AM INSURANCE INSTRUCTOR Appointment [facility] [address] [place] [address] Roberta Alex MD [address] [place] [address] 09/25/2024 11:40 AM INSURANCE INSTRUCTOR Office Visit [facility] [address] [place] [address] Roberta Alex MD [address] [place] [address] documented as of this encounter Visit Diagnoses Not on filedocumented in this encounter
--- OUTSIDE RECORDS SUMMARY | 2024-07-11 05:45 | XMS_ITS | Encounter Summary ---
Author Organization [facility] Address [facility]6 [facility] [place] [address] [place] [address] Care Team Providers Care Engineer/Conductor Name Role Phone Unavailable Primary Care Provider Unavailabl e Encounter Details Date Type Department Care Team (Late Contact Info) Description 03/04/2008 Abstract [facility] [address] [place] [address] Cirilo Schultz MD [address] [place] [phone] Social History Tobacco Use Types Packs/Day Years Used Date Smoking Tobacco: Never Assessed Comments Unknown Sex and Gender Information Value Date Recorded Sex Assigned at Not on file Legal Sex Female 11:30 PM JOB ESTIMATOR Gender Identity Female 11/10/2021 3:09 PM CDT Sexual Orientation Straight 11/10/2021 3: 09 PM CDT documented as of this encounter Plan of Treatment Upcoming Encounters Date Type Department Care Team (Late Contact Info) Description 09/25/2024 11:30 AM JOB ESTIMATOR Appointment [facility] [address] [place] [address] Roberta Alex MD [address] [place] [address] 09/25/2024 11:40 AM JOB ESTIMATOR Office Visit [facility] [address] [place] [address] Roberta Alex MD [address] [place] [address] documented as of this encounter Visit Diagnoses Not on filedocumented in this encounter
--- OUTSIDE RECORDS SUMMARY | 2024-07-11 05:45 | XMS_ITS | Encounter Summary ---
Author Organization [facility] Address [address] [facility] [place] [address] [place] [address] Care Team Providers Care Real Estate Internship Name Role Phone Unavailable Primary Care Provider Unavailabl e Encounter Details Date Type Department Care Team (Late Contact Info) Description 07/26/2006 Abstract [facility] [address] [place] [address] Conner Gallegos MD [address] [place] [phone] Social History Tobacco Use Types Packs/Day Years Used Date Smoking Tobacco: Never Assessed Comments Unknown Sex and Gender Information Value Date Recorded Sex Assigned at Not on file Legal Sex Female 11:30 PM HONING MACHINE SET UP OPERATOR TOOL Gender Identity Female 11/10/2021 3:09 PM CDT Sexual Orientation Straight 11/10/2021 3: 09 PM CDT documented as of this encounter Plan of Treatment Upcoming Encounters Date Type Department Care Team (Late Contact Info) Description 09/25/2024 11:30 AM HONING MACHINE SET UP OPERATOR TOOL Appointment [facility] [address] [address] Roberta Alex MD [address] [place] [address] 09/25/2024 11:40 AM HONING MACHINE SET UP OPERATOR TOOL Office Visit [facility] [address] [place] [address] Roberta Alex MD [address] [place] [address] documented as of this encounter Visit Diagnoses Not on filedocumented in this encounter
--- OUTSIDE RECORDS SUMMARY | 2024-07-11 05:45 | XMS_ITS | Encounter Summary ---
Author Organization [facility] Address [address] [facility] [place] [address] [place] [address] Care Team Providers Care Real Estate Associate Attorney Name Role Phone Unavailable Primary Care Provider Unavailabl e Encounter Details Date Type Department Care Team (Late Contact Info) Description 01/19/2006 Abstract [facility] [address] [place] [address] Conner Gallegos MD [address] [place] [phone] Social History Tobacco Use Types Packs/Day Years Used Date Smoking Tobacco: Never Assessed Comments Unknown Sex and Gender Information Value Date Recorded Sex Assigned at Not on file Legal Sex Female 11:30 PM SPRAYER AUTOMATIC SPRAY MACHINE Gender Identity Female 11/10/2021 3:09 PM CDT Sexual Orientation Straight 11/10/2021 3: 09 PM CDT documented as of this encounter Plan of Treatment Upcoming Encounters Date Type Department Care Team (Late Contact Info) Description 09/25/2024 11:30 AM SPRAYER AUTOMATIC SPRAY MACHINE Appointment [facility] [address] [address] Roberta Alex MD [address] [place] [address] 09/25/2024 11:40 AM SPRAYER AUTOMATIC SPRAY MACHINE Office Visit [facility] [address] [place] [address] Roberta Alex MD [address] [place] [address] documented as of this encounter Visit Diagnoses Not on filedocumented in this encounter
--- OUTSIDE RECORDS SUMMARY | 2024-07-11 05:45 | XMS_ITS | Encounter Summary ---
Author Organization [facility] Address [facility]6 [facility] [place] [address] [place] [address] Care Team Providers Care Program And Research Coordinator Name Role Phone Unavailable Primary Care Provider Unavailabl e Encounter Details Date Type Department Care Team (Late Contact Info) Description 12/05/2004 Abstract [facility] [address] [place] [address] Augustin Boyd MD [address] [address] Social History Tobacco Use Types Packs/Day Years Used Date Smoking Tobacco: Never Assessed Comments Unknown Sex and Gender Information Value Date Recorded Sex Assigned at Not on file Legal Sex Female 11:30 PM TELEGRAPH INSPECTOR Gender Identity Female 11/10/2021 3:09 PM CDT Sexual Orientation Straight 11/10/2021 3: 09 PM CDT documented as of this encounter Plan of Treatment Upcoming Encounters Date Type Department Care Team (Late Contact Info) Description 09/25/2024 11:30 AM TELEGRAPH INSPECTOR Appointment [facility] [address] [place] [address] Roberta Alex MD [address] [place] [address] 09/25/2024 11:40 AM TELEGRAPH INSPECTOR Office Visit [facility] [address] [place] [address] Roberta Alex MD [address] [place] [address] (work) documented as of this encounter Visit Diagnoses Not on filedocumented in this encounter
--- OUTSIDE RECORDS SUMMARY | 2024-07-11 05:45 | XMS_ITS | Encounter Summary ---
Author Organization [facility] Address [facility] [place] [address] [place] [address] Care Team Providers Care Precise Winder Name Role Phone Unavailable Primary Care Provider Unavailabl e Encounter Details Date Type Department Care Team (Late Contact Info) Description 03/01/2008 Abstract [facility] [address] [place] [address] Cirilo Schultz MD [address] [place] [phone] Social History Tobacco Use Types Packs/Day Years Used Date Smoking Tobacco: Never Assessed Comments Unknown Sex and Gender Information Value Date Recorded Sex Assigned at Not on file Legal Sex Female 11:30 PM ROLL MACHINE OPERATOR Gender Identity Female 11/10/2021 3:09 PM CDT Sexual Orientation Straight 11/10/2021 3: 09 PM CDT documented as of this encounter Plan of Treatment Upcoming Encounters Date Type Department Care Team (Late Contact Info) Description 09/25/2024 11:30 AM ROLL MACHINE OPERATOR Appointment [facility] [address] [place] [address] Roberta Alex MD [address] [place] [address] 09/25/2024 11:40 AM ROLL MACHINE OPERATOR Office Visit [facility] [address] [place] [address] Roberta Alex MD [address] [place] [address] documented as of this encounter Visit Diagnoses Not on filedocumented in this encounter
--- OUTSIDE RECORDS SUMMARY | 2024-07-11 05:45 | XMS_ITS | Encounter Summary ---
Author Organization [facility] Address [facility] [place] [address] [place] [address] Care Team Providers Care Senior Oracle Applications Developer Name Role Phone Unavailable Primary Care Provider Unavailabl e Encounter Details Date Type Department Care Team (Late Contact Info) Description 12/07/2004 Abstract [facility] [address] [place] [address] Cirilo Schultz MD [address] [place] [phone] Social History Tobacco Use Types Packs/Day Years Used Date Smoking Tobacco: Never Assessed Comments Unknown Sex and Gender Information Value Date Recorded Sex Assigned at Not on file Legal Sex Female 11:30 PM MEDICAL COLLECTIONS REPRESENTATIVE Gender Identity Female 11/10/2021 3:09 PM CDT Sexual Orientation Straight 11/10/2021 3: 09 PM CDT documented as of this encounter Plan of Treatment Upcoming Encounters Date Type Department Care Team (Late Contact Info) Description 09/25/2024 11:30 AM MEDICAL COLLECTIONS REPRESENTATIVE Appointment [facility] [address] [place] [address] Roberta Alex MD [address] [place] [address] 09/25/2024 11:40 AM MEDICAL COLLECTIONS REPRESENTATIVE Office [facility] [address] [place] [address] Roberta Alex MD [address] [place] [address] documented as of this encounter Visit Diagnoses Not on filedocumented in this encounter
--- OUTSIDE RECORDS SUMMARY | 2024-07-11 05:45 | XMS_ITS | Encounter Summary ---
Author Organization [facility] Address [facility] [place] [address] [place] [address] Care Team Providers Care Electric Stop Installer Name Role Phone Unavailable Primary Care Provider Unavailabl e Encounter Details Date Type Department Care Team (Late Contact Info) Description 07/05/2005 Abstract [facility] [address] [place] [address] Cirilo Schultz MD [address] [place] [phone] Social History Tobacco Use Types Packs/Day Years Used Date Smoking Tobacco: Never Assessed Comments Unknown Sex and Gender Information Value Date Recorded Sex Assigned at Not on file Legal Sex Female 11:30 PM BURGLAR ALARM INSPECTOR Gender Identity Female 11/10/2021 3:09 PM CDT Sexual Orientation Straight 11/10/2021 3: 09 PM CDT documented as of this encounter Plan of Treatment Upcoming Encounters Date Type Department Care Team (Late Contact Info) Description 09/25/2024 11:30 AM BURGLAR ALARM INSPECTOR Appointment [facility] [address] [place] [address] Roberta Alex MD [address] [place] [address] 09/25/2024 11:40 AM BURGLAR ALARM INSPECTOR Office Visit [facility] [address] [place] [address] Roberta Alex MD [address] [place] [address] documented as of this encounter Visit Diagnoses Not on filedocumented in this encounter
--- OUTSIDE RECORDS SUMMARY | 2024-07-11 05:45 | XMS_ITS | Encounter Summary ---
Author Organization [facility] Address [facility] [facility] [place] [address] [place] [address] Care Team Providers Care Tobacco Drier Operator Name Role Phone Unavailable Primary Care Provider Unavailabl e Encounter Details Date Type Department Care Team (Late Contact Info) Description 06/24/2005 Abstract [facility] [address] [place] [address] Cirilo Schultz MD [address] [place] [phone] Social History Tobacco Use Types Packs/Day Years Used Date Smoking Tobacco: Never Assessed Comments Unknown Sex and Gender Information Value Date Recorded Sex Assigned at Not on file Legal Sex Female 11:30 PM POSTDOCTORAL SCHOLAR Gender Identity Female 11/10/2021 3:09 PM CDT Sexual Orientation Straight 11/10/2021 3: 09 PM CDT documented as of this encounter Plan of Treatment Upcoming Encounters Date Type Department Care Team (Late Contact Info) Description 09/25/2024 11:30 AM POSTDOCTORAL SCHOLAR Appointment [facility] [address] [place] [address] Roberta Alex MD [address] [place] [address] 09/25/2024 11:40 AM POSTDOCTORAL SCHOLAR Office Visit [facility] [address] [place] [address] Roberta Alex MD [address] [place] [address] documented as of this encounter Visit Diagnoses Not on filedocumented in this encounter
--- OUTSIDE RECORDS SUMMARY | 2024-07-11 09:44 | XMS_ITS | Encounter Summary ---
Author Organization [facility] Address [address] [place] [address] Care Team Providers Care Lean Six Sigma Black Belt Name Role Phone Alejandro Blevins MD Primary Care Provider [phone] Reason for Visit * Reason Onset Date Comments Results 08/28/2021 Encounter Details Date Type Department Care Team (Late st Contact Info) Description 08/28/2021 Telephone [facility] MATERNAL/ EVALUATION UNIT [address] [facility] [place] [address] Ruben Sorto MD [address] [place] [address] Results Social History Tobacco Use Types Packs/Day [...] year. Ruben Sorto MD 08/28/2021 4:07 PM D MACHINE SET UP OPERATOR documented in this encounter Plan of Treatment Not on file documented as of this encounter Visit Diagnoses Not on filedocumented in this encounter Care Teams Lean Six Sigma Black Belt Relationship Specialty Start Date End Date Alejandro Blevins MD [address] [place] [phone] PCP - General Family Medicine 12/07/19 documented as of this encounter
--- OUTSIDE RECORDS SUMMARY | 2024-07-11 09:44 | XMS_ITS | Clinical Summary ---
Author Organization [facility] Address [address] [place] [address] Care Team Providers Care Medical Officer Name Role Phone Alejandro Blevins MD Primary Care Provider [phone] Source Comments [facility],non-owned Affiliates and Associated Physician Practices is amultiple site organization consisting of ambulatory clinics and hospital sitesin [place], [place], [place] and [place]. This disclosure is being madepursuant to the Care Everywhere program and may not contain all information available regarding this patient. Last updated 18.[facility] Allergies Active Allergy Reactions Criticality Noted Date [...] migh t be different from the original. [employer] form completed. Diapers given. 06/02/2020 [...] Comments Blood Pressure 108/71 08/19/2021 11:05 AM CATERING STAFF MEMBER Pulse 74 08/19/2021 11:05 AM CATERING STAFF MEMBER Temperature 36.2 ??C (97.2 ??F) 06/02/2020 8:43 [...] IG LB+HPV APTIMA Routine 08/19/2021 11:34 AM CATERING STAFF MEMBER High grade squamous intraepithelial lesion (HGSIL), grade 3 WIL, on biopsy of cervix HIV-1 HIV-2 ANTIBODY + HIV P24 AG PANEL STAT 04/17/2020 8:57 PM CDT HEPATITIS C RNA QUANTITATIVE Routine 12/08/2019 7:03 AM CDT Anemia, unspecified type from Last 3 Months or Most Recently Relevant to Health Maintenance Results * PAP IG LB+HPV APTIMA (08/19/2021 11:34 AM CATERING STAFF MEMBER) Diagnosis Comment 08/22/2021 7:09 AM CATERING STAFF MEMBER [facility] ([facility]) Comment:NEGATIVE FOR INTRAEP ITHELIAL LESION OR MALIGNANCY. Specimen Adequacy Comment 022 7:09 AM CATERING STAFF MEMBER [facility] ([facility]) Comment: Satisfactory for evaluation. ??Endocervical and/or squamous metaplastic cells (endocervical component) are present. Performed by Comment 08/22/2021 7:09 AM CATERING STAFF MEMBER [facility] ([facility]) Comment:Nella Montes, Professor Of Chemistry (ASCP) Comment . 08/22/2021 7:09 AM CATERING STAFF MEMBER [facility] ([facility]) Note Comment 08/22/2021 7:09 AM CATERING STAFF MEMBER [facility] ([facility]) Comment: The Pap smear is a screening test designed to aid in the detection of premalignant and malignant conditions of the uterine cervix. ??It is not a diagnostic procedure and should not be used as the sole means of detecting cervical cancer. ??Both false-positive and false-negative reports do occur. IGLBP CPT Code Automation Comment 08/22/2021 7:09 AM CATERING STAFF MEMBER [facility] ([facility]) Comment: This liquid based ThinPrep(R) pap test was screened with the use of an image guided system. Human papillomavirus Aptima Negative Negative 08/22/2021 7:09 AM CATERING STAFF MEMBER [facility] ([facility]) Comment: This nucleic acid amplification test detects fourteen high-risk HPV types (16,18,31,33,35,39,45,51,52,56,58,59,66,68) without differentiation. Pathology/Cytolo gy ENTIRE ENDOCERVIX / Unknown Collection / Unknown 08/19/2021 11:34 AM CATERING STAFF MEMBER 08/19/2021 12:41 PM CATERING STAFF MEMBER Narrative [facility] ([facility]) - 08/22/2021 7:09 AM CATERING STAFF MEMBER Performed at: ??01 - [address] ??[id number] Antisubmarine Weapons Officer: Stephanie Lemus MD, Phone: ??[phone] Performed at: ??[address] - [address] ??[id number] Antisubmarine Weapons Officer: Stephanie Lemus MD, Phone: ??[phone] Specimen Comment: No. of containers..01 ThinPrep Vial Adrienne Roth MD LAB - PATHOLOGY/CY TOLOGY ORDERABLES Performing Organization Address City/[facility]/ZIP Co de Phone Number [facility] ([facility]) [address] [place] [phone] * HIV-1 HIV-2 ANTIBODY + HIV P24 AG PANEL (04/17/2020 8:57 PM CDT) HIV1/2 Ab + P24 Ag Non Reactive Non Reactive 04/17/2020 10:02 PM CDT [facility] Blood BLOOD SPECIMEN / Unknown Venipuncture / Unknown 04/17/2020 8:57 PM CDT 04/17/2020 9:09 PM CDT Narrative [facility] - 04/17/2020 10:02 PM CDT No Laboratory evidence of HIV infection. Mayuri Norton MD LAB - CHEMISTRY MIRI GO [facility] [address] [place] [address] * HEPATITIS C RNA QUANTITATIVE (12/08/2019 7:03 AM CDT) Hepatitis C Virus Quantitation [id number] IU/mL 12/19/2019 6:08 AM CDT [facility] ([facility]) Hepatitis C Virus Log 10 6.217 log10 IU/mL 12/19/2019 6:08 AM CDT [facility] ([facility]) Test Information Comment 12/19/19 6:08 AM CDT [facility] ([facility]) Comment:The quantitative ran ge of this assay is 15 IU/mL to 100 million IU/mL. Blood BLOOD SPECIMEN / Unknown Lab Venipuncture / Unknown 12/08/2019 7:03 AM CDT 12/08/2019 7:48 AM CDT Narrative [facility] ([facility]) - 12/19/2019 6:08 AM CDT Performed at: ??01 - [address] ??[id number] Antisubmarine Weapons Officer: Kiran Guerra MD, Phone: ??[phone] Pattie Castellon MD LAB - CHEMISTRY ORD ERABLES [facility] ([facility]) [address] [place] [address] from Last 3 Months or Most Recently Relevant to Health Maintenance Advance Directives * Full Code (Latest Code Status on File) Date Activated Date Inactivated Comments 04/18/2020 5:26 AM 04/23/2020 5:11 PM * Full Code Date Activated Date Inactivated Comments 04/17/2020 9:19 PM 04/18/2020 5:26 AM * Full Code Date Activated Date Inactivated Comments 12/08/2019 2:09 AM 12/09/2019 7:07 PM Care Teams Medical Officer Relationship Specialty Start Date End Date Alejandro Blevins MD [address] [place] [phone] PCP - General Family Medicine 12/07/19
--- OUTSIDE RECORDS SUMMARY | 2024-07-11 09:44 | XMS_ITS | Encounter Summary ---
Author Organization [facility] Address [address] [facility] [place] [address] Care Team Providers Care Fusing Machine Tender Name Role Phone Alejandro Blevins MD Primary Care Provider [phone] Reason for Visit * Reason Onset Date Comments Results 08/26/2021 Encounter Details Date Type Department Care Team (Late st Contact Info) Description 08/26/2021 Telephone [facility] MATERNAL/ EVALUATION UNIT [facility] [place] [address] Mary Ann Doe MD [address] [place] [address] [place] [phone] Results Social History Tobacco Use Types Packs/Day [...] MD - 08/26/2021 11:34 AM CST R4 RADIOLOGY TRANSCRIPTIONIST Telephone Encounter Called patient to discuss her [...] Mary Ann Doe MD 08/26/2021 11:37 AM OLL ACCOUNTANT documented in this encounter Plan of Treatment Not on file documented as of this encounter Visit Diagnoses Not on filedocumented in this encounter Care Teams Fusing Machine Tender Relationship Specialty Start Date End Date Alejandro Blevins MD [address] [place] [phone] PCP - General Family Medicine 12/07/19 documented as of this encounter
--- OUTSIDE RECORDS SUMMARY | 2024-07-11 09:44 | XMS_ITS | Referral Summary ---
Author Organization [facility] Address [address] [place] [address] Care Team Providers Care Cobbler Upper Name Role Phone Alejandro Blevins MD Primary Care Provider [phone] [facility],non-owned Affiliates and Associated Physician Practices is amultiple site organization consisting of ambulatory clinics and hospital sitesin [place], [place], [place] and [place]. This disclosure is being madepursuant to the Care Everywhere program and may not contain all information available regarding this patient. Last updated 18.[facility] Allergies Active Allergy Reactions Criticality Noted Date [...] migh t be different from the original. [employer] form completed. Diapers given. 06/02/2020 [...] Comments Blood Pressure 108/71 08/19/2021 11:05 AM A R SPECIALIST Pulse 74 08/19/2021 11:05 AM A R SPECIALIST Temperature 36.2 ??C (97.2 ??F) 06/02/2020 8:43 [...] IG LB+HPV APTIMA Routine 08/19/2021 11:34 AM A R SPECIALIST High grade squamous intraepithelial lesion (HGSIL), grade 3 WIL, on biopsy of cervix HIV-1 HIV-2 ANTIBODY + HIV P24 AG PANEL STAT 04/17/2020 8:57 PM CDT HEPATITIS C RNA QUANTITATIVE Routine 12/08/2019 7:03 AM CDT Anemia, unspecified type from Last 3 Months or Most Recently Relevant to Health Maintenance Results * PAP IG LB+HPV APTIMA (08/19/2021 11:34 AM A R SPECIALIST) Diagnosis Comment 08/22/2021 7:09 AM A R SPECIALIST [facility] ([facility]) Comment:NEGATIVE FOR INTRAEP ITHELIAL LESION OR MALIGNANCY. Specimen Adequacy Comment 022 7:09 AM A R SPECIALIST [facility] ([facility]) Comment: Satisfactory for evaluation. ??Endocervical and/or squamous metaplastic cells (endocervical component) are present. Performed by Comment 08/22/2021 7:09 AM A R SPECIALIST [facility] ([facility]) Comment:Nella Montes, Records Technician (ASCP) Comment . 08/22/2021 7:09 AM A R SPECIALIST [facility] ([facility]) Note Comment 08/22/2021 7:09 AM A R SPECIALIST [facility] ([facility]) Comment: The Pap smear is a screening test designed to aid in the detection of premalignant and malignant conditions of the uterine cervix. ??It is not a diagnostic procedure and should not be used as the sole means of detecting cervical cancer. ??Both false-positive and false-negative reports do occur. IGLBP CPT Code Automation Comment 08/22/2021 7:09 AM A R SPECIALIST [facility] ([facility]) Comment: This liquid based ThinPrep(R) pap test was screened with the use of an image guided system. Human papillomavirus Aptima Negative Negative 08/22/2021 7:09 AM A R SPECIALIST [facility] ([facility]) Comment: This nucleic acid amplification test detects fourteen high-risk HPV types (16,18,31,33,35,39,45,51,52,56,58,59,66,68) without differentiation. Pathology/Cytolo gy ENTIRE ENDOCERVIX / Unknown Collection / Unknown 08/19/2021 11:34 AM A R SPECIALIST 08/19/2021 12:41 PM A R SPECIALIST Narrative [facility] ([facility]) - 08/22/2021 7:09 AM A R SPECIALIST Performed at: ??01 - [facility] [address] ??[id number] Office Manager Receptionist: Stephanie Lemus MD, Phone: ??[phone] Performed at: ??02 - [facility] ??[id number] Office Manager Receptionist: Stephanie Lemus MD, Phone: ??[phone] Specimen Comment: No. of containers..01 ThinPrep Vial Adrienne Roth MD LAB - PATHOLOGY/CY TOLOGY ORDERABLES [facility] ([facility]) [address] [place] [address] * HIV-1 HIV-2 ANTIBODY + HIV P24 AG PANEL (04/17/2020 8:57 PM CDT) [facility] HIV1/2 Ab + P24 Ag Non Reactive Non Reactive 04/17/2020 10:02 PM CDT [facility] Blood BLOOD SPECIMEN / Unknown Venipuncture / Unknown 04/17/2020 8:57 PM CDT 04/17/2020 9:09 PM CDT Narrative [facility] - 04/17/2020 10:02 PM CDT No Laboratory evidence of HIV infection. Mayuri Norton MD LAB - CHEMISTRY MIRI GO Performing Organization Address City/[facility]/ZIP Co de Phone Number [facility] [address] [place] [address] * HEPATITIS C RNA QUANTITATIVE (12/08/2019 7:03 AM CDT) [facility] Hepatitis C Virus Quantitation [id number] IU/mL 12/19/2019 6:08 AM CDT [facility] ([facility]) Hepatitis C Virus Log 10 6.217 log10 IU/mL 12/19/2019 6:08 AM CDT [facility] ([facility]) Test Information Comment 12/19/19 6:08 AM CDT [facility] ([facility]) Comment:The quantitative ran ge of this assay is 15 IU/mL to 100 million IU/mL. Blood BLOOD SPECIMEN / Unknown Lab Venipuncture / Unknown 12/08/2019 7:03 AM CDT 12/08/2019 7:48 AM CDT Narrative [facility] ([facility]) - 12/19/2019 6:08 AM CDT Performed at: ??01 - [facility] [address] ??[id number] Office Manager Receptionist: Kiran Guerra MD, Phone: ??[phone] Pattie Castellon MD LAB - CHEMISTRY ORD ERABLES [facility] ([facility]) [address] [place] [address] from Last 3 Months or Most Recently Relevant to Health Maintenance Advance Directives * Full Code (Latest Code Status on File) Date Activated Date Inactivated Comments 04/18/2020 5:26 AM 04/23/2020 5:11 PM * Full Code Date Activated Date Inactivated Comments 04/17/2020 9:19 PM 04/18/2020 5:26 AM * Full Code Date Activated Date Inactivated Comments 12/08/2019 2:09 AM 12/09/2019 7:07 PM Care Teams Cobbler Upper Relationship Specialty Start Date End Date Alejandro Blevins MD [address] [place] [address] PCP - General Family Medicine 12/07/19
--- OUTSIDE RECORDS SUMMARY | 2024-07-11 09:44 | XMS_ITS | Patient Health Summary ---
Author Organization [facility] Address [address] [place] [address] Care Team Providers Care Pump Tender Name Role Phone Alejandro Blevins MD Primary Care Provider [phone] Note from [facility],non-owned Affiliates and Associated Physician Practices is amultiple site organization consisting of ambulatory clinics and hospital sitesin [place], [place], [place] and [place]. This disclosure is being madepursuant to the Care Everywhere program and may not contain all information available regarding this patient. Last updated 18.[facility] Allergies * Bee Venom(Anaphylaxis) -High Criticality * [...] Comments Blood Pressure 108/71 08/19/2021 11:05 AM INTERNATIONAL BANKER Pulse 74 08/19/2021 11:05 AM INTERNATIONAL BANKER Temperature 36.2 ??C (97.2 ??F) 06/02/2020 8:43 [...] 04/18/2020) * PT PTT PANEL(Performed 04/18/2020) * [id number] ANTIBODY(Performed 04/18/2020) * MEKLNP09 ACTIVITY(Performed 04/18/2020) * FIBRINOGEN ACTIVITY(Performed 04/18/2020) * GLUCOSE - POINT OF CARE(Performed 04/18/2020) * PATHOLOGY PERIPHERAL SMEAR REVIEW(Performed 04/18/2020) Performed for Twin delivery by ([facility]) * XR CHEST 1VW PORTABLE(Performed 04/18/2020) Performed [...] (STL)(Performed 04/18/2020) Performed for Twin delivery by ([facility]) * HEMOGLOBIN A1C(Performed 04/18/2020) * COMPREHENSIVE METABOLIC [...] (EMERGENCY)(Performed 04/18/2020) Performed for Twin delivery by ([facility]) * TRANSFUSE PLATELET PHERESIS UNIT(S)(Performed 04/18/2020) * [...] REVIEW(Performed 04/17/2020) Performed for Twin delivery by ([facility]) * PREPARE RBC LEUKOREDUCED UNIT(Performed 04/17/2020) * [...] in third trimester, unspecified multiple gestation type ([facility]) * SLIDE SCAN HEMATOLOGY(Performed 04/17/2020) Performed for Twin gestation in third trimester, unspecified multiple gestation type ([facility]) * CBC W AUTO DIFFERENTIAL(Performed 04/17/2020) Performed for Twin gestation in third trimester, unspecified multiple gestation type ([facility]) * SONOGRAM - COMPLETE(Performed 01/23/2020) Performed for Evaluate anatomy not seen on prior sonogram * URINE DRUG SCREEN IMMUNOASSAY(Performed 01/23/2020) Performed for Supervision of high risk in second trimester ([facility]) * CULTURE URINE(Performed 01/23/2020) Performed for Supervision of high risk in second trimester ([facility]), Other iron deficiency anemia, Chronic hepatitis C without hepatic coma ([facility]) * HIV-1 HIV-2 ANTIBODY + HIV P24 AG PANEL(Performed 12/19/2019) Performed for Dichorionic diamniotic twin in second trimester ([facility]) * RPR W REFLEX TO TITER (MONITOR)(Performed 12/19/2019) Performed for Dichorionic diamniotic twin in second trimester ([facility]) * SONOGRAM - COMPLETE(Performed 12/19/2019) * IMAGING/RADIOLOGY/XRAY RESULTS ORDER(Performed 12/11/2019) * RUBELLA ANTIBODY IGG(Performed 12/09/2019) Performed for Dichorionic diamniotic twin in second trimester ([facility]) * CBC W AUTO DIFFERENTIAL(Performed 12/09/2019) Performed [...] PAP IG LB+HPV APTIMA (08/19/2021 11:34 AM INTERNATIONAL BANKER) Diagnosis Comment 08/22/2021 7:09 AM INTERNATIONAL BANKER [facility] Comment:NEGATIVE FOR INTRAEP ITHELIAL LESION OR MALIGNANCY. Specimen Adequacy Comment 022 7:09 AM INTERNATIONAL BANKER [facility] Comment: Satisfactory for evaluation. ??Endocervical and/or squamous metaplastic cells (endocervical component) are present. Performed by Comment 08/22/2021 7:09 AM INTERNATIONAL BANKER [facility] Comment:Nella Montes, Rail Express Clerk (ASCP) Comment . 08/22/2021 7:09 AM INTERNATIONAL BANKER [facility] Note Comment 08/22/2021 7:09 AM INTERNATIONAL BANKER [facility] Comment: The Pap smear is a screening test designed to aid in the detection of premalignant and malignant conditions of the uterine cervix. ??It is not a diagnostic procedure and should not be used as the sole means of detecting cervical cancer. ??Both false-positive and false-negative reports do occur. IGLBP CPT Code Automation Comment 08/22/2021 7:09 AM INTERNATIONAL BANKER [facility] Comment: This liquid based ThinPrep(R) pap test was screened with the use of an image guided system. Human papillomavirus Aptima Negative Negative 08/22/2021 7:09 AM INTERNATIONAL BANKER [facility] Comment: This nucleic acid amplification test detects fourteen high-risk HPV types (16,18,31,33,35,39,45,51,52,56,58,59,66,68) without differentiation. Pathology/Cytolo gy ENTIRE ENDOCERVIX / Unknown Collection / Unknown 08/19/2021 11:34 AM INTERNATIONAL BANKER 08/19/2021 12:41 PM INTERNATIONAL BANKER Narrative [facility] - 08/22/2021 7:09 AM INTERNATIONAL BANKER Performed at: ??01 - [facility] [address] ??[id number] Educational Psychology Teacher: Stephanie Lemus MD, Phone: ??[phone] Performed at: ??02 - [facility] [address] ??[id number] Educational Psychology Teacher: Stephanie Lemus MD, Phone: ??[phone] Specimen Comment: No. of containers..01 ThinPrep Vial Adrienne Roth MD LAB - PATHOLOGY/CY TOLOGY ORDERABLES Performing Organization Address City/State/[facility] Co de Phone Number [facility] [address] [place] [address] * PATHOLOGY TISSUE EXAM (STL) (02/18/2021 1:41 PM CDT) Only the most recent of3 resultswithin the time period is included. Case Report Surgical Pathology Report ? Case: [id number] ? 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 02/20/2021 6:34 PM [facility] Gross Description The requisition [...] B2. Received in formalin, specimen C endocrvx practice or student teacher consists of a white-jean-baptiste brush with minimally attached mucoid, brown-jean-baptiste soft tissue measuring 0.5 x 0.5 by less than 0.1 cm submitted in toto in cassette C1. AR 02/20/2021 6:34 PM [facility] Microscopic Description Microscopic examination [...] no intact epithelium. 02/20/2021 6:34 PM CDT [facility] Disclaimer All histochemical and/or immunohistochemical results are interpreted with controls that demonstrate appropriate staining reactions before reporting results. Note on use of immunocytochemistry reagents: This test was developed and its performance characteristic determined by [facility], Department of Laboratory Medicine. It has not [...] interpreted with caution. 02/20/2021 6:34 PM CDT [facility] Embedded Images 02/20/2021 6:34 PM CDT [facility] Pathology/Cytology SPECIMEN FROM LESION OF [...] Roth MD LAB - PATHOLOGY/CY TOLOGY ORDERABLES [facility] [address] [place] [address] * HCG URINE QUALITATIVE - POCT (IP) INTERFACED (02/18/2021 11:48 AM CDT) Only the most recent of2 resultswithin the time period is included. HCG Qual Urine Negative Negative 02/18/2021 11:53 AM CDT [facility] Urine URINE / Unknown 02/18/2021 1 1:48 AM CDT 02/18/2021 11:53 AM CDT Adrienne Roth MD LAB - POINT OF CAR E ORDERABLES [facility] [address] [place] [address] * (ABNORMAL) PAP LB HPV HR DNA (05/12/2020 12:08 PM CDT) Diagnosis Comment(A) 05/19/2020 12:08 PM CDT [facility] Comment: EPITHELIAL CELL ABNORMALITY. ATYPICAL SQUAMOUS CELLS, CANNOT EXCLUDE HIGH-GRADE SQUAMOUS INTRAEPITHELIAL LESION (ASC-H). Recommendation Comment(A) 05/19/2020 12:08 PM CDT [facility] Comment:Suggest colposcopy a nd biopsy if indicated. Specimen Adequacy Comment 020 12:08 PM CDT [facility] Comment: Satisfactory for evaluation. ??Endocervical and/or squamous metaplastic cells (endocervical component) are present. Performed by Comment 05/19/2020 12:08 PM CDT [facility] Comment:Kate Turner, Cyto technologist (ASCP) Electronically Signed by Comment 05/19/2020 12:08 PM CDT [facility] Comment:Cyndee Howard MD, Pa thologist Comment . 05/19/2020 12:08 PM CDT [facility] Pathologist Provided ICD10 Comment 05/19/2020 12:08 PM CDT [facility] Comment:R87.611 Note Comment 05/19/2020 12:08 PM CDT [facility] Comment: The Pap smear is a screening test designed to aid in the detection of premalignant and malignant conditions of the uterine cervix. ??It is not a diagnostic procedure and should not be used as the sole means of detecting cervical cancer. ??Both false-positive and false-negative reports do occur. Human papillomavirus High Risk Positive(A ) Negative 05/19/2020 12:08 PM CDT [facility] Comment: This nucleic acid amplification high-risk HPV test detects thirteen high-risk types (16,18,31,33,35,39,45,51,52,56,58,59,68) without differentiation. Pathology/Cytolo gy PART OF UTERINE CERVIX / Unknown Collection / Unknown 05/12/2020 12:08 PM CDT 05/12/2020 12:22 PM CDT Narrative [facility] - 05/19/2020 12:08 PM CDT Performed at: ??01 - [facility] [address] ??[id number] Educational Psychology Teacher: Stephanie Lemus MD, Phone: ??[phone] Performed at: ??02 - [facility] [address] ??[id number] Educational Psychology Teacher: Stephanie Lemus MD, Phone: ??[phone] Specimen Comment: Source.............Cervix;Endocervix Specimen Comment: No. of containers..01 ThinPrep Vial Tuan Platt MD LAB - PATHOLOGY/CYTO LOGY ORDERABLES [facility] [address] [place] [address] * GLUCOSE PROTEIN KETONE URINE - POINT [...] CA RE ORDERABLES [facility] [address] [phone] * HCG URINE QUALITATIVE - POINT OF CARE (05/12/2020 10:33 AM CDT) HCG Qual Urine Negative Negative [facility] QC Verified Yes Yes [facility] POC T TESTING Urine URINE / Unknown 05/12/2020 1 0:33 AM CDT Lola Olson MD LAB - POINT OF DC RE ORDERABLES [facility] [address] [phone] * CARDIAC RHYTHM STRIP ORDER (04/24/2020 1:36 [...] - 10.7 x10E9/L 04/23/2020 6:44 AM CDT [facility] WBC Corrected 04/23/2020 6:44 AM CDT [facility] RBC 2.97(L) 3.80 - 5.20 x10E12/L 04/23/2020 6:44 AM CDT [facility] Hemoglobin 8.4(L) 12.0 - 15.6 gm/dL 04/23/2020 6:44 AM CDT [facility] Hematocrit 25.6(L) 35.9 - 45.5 % 04/23/2020 6:44 AM CDT [facility] MCV 86.2 80.7 - 98.3 fl 04/23/2020 6:44 AM CDT [facility] MCH 28.3 26.7 - 34.0 pg 04/23/2020 6:44 AM CDT [facility] MCHC 32.8 30.8 - 35.9 gm/dL 04/23/2020 6:44 AM CDT [facility] Platelet Count 272 153 - 416 x10E9/L 04/23/2020 6:44 AM [facility] RDW-CV 19.6(H) 12.1 - 14.9 % 04/23/2020 6:44 AM [facility] MPV 10.8 9.4 - 12.9 fl 04/23/2020 6:44 AM [facility] Neutrophils % 79.2(H) 44.0 - 73.0 % 04/23/2020 6:44 AM [facility] Lymphocytes % 11.4(L) 20.0 - 43.0 % 04/23/2020 6:44 AM [facility] Monocytes % 5.2 5.0 - 13.0 % 04/23/2020 6:44 AM [facility] Eosinophils % 0.1 0.0 - 6.0 % 04/23/2020 6:44 AM [facility] Basophils % 0.2 0.0 - 2.0 % 04/23/2020 6:44 AM [facility] Immature Granulocytes 3.9(H) 0 - 1 % 04/23/2020 6:44 AM [facility] Neutrophil Absolute 12.50(H) 2.01 - 7.14 x10E9/L 04/23/2020 6:44 AM [facility] Lymphocytes Absolute 1.80 1.07 - 3.94 x10E9/L 04/23/2020 6:44 AM [facility] Monocytes Absolute 0.82 0.26 - 1.07 x10E9/L 04/23/2020 6:44 AM [facility] Eosinophils Absolute 0.02 0 - 0.47 x10E9/L 04/23/2020 6:44 AM [facility] Basophils Absolute 0.03 0 - 0.08 x10E9/L 04/23/2020 6:44 AM [facility] Immature Granulocytes Absolute 0.62(H) 0.00 - 0.06 x10E9/L 04/23/2020 6:44 AM [facility] nRBC Auto 4 /100 WBC 04/23/2020 6:44 AM [facility] Blood BLOOD SPECIMEN / Unknown Lab Venipuncture / Unknown 04/23/2020 6:01 AM CDT 04/23/2020 6:30 AM CDT Maikel Ring MD LAB - HEMATOLOGY ORDERABLES [facility] [address] [place] [address] * (ABNORMAL) COMPREHENSIVE METABOLIC PANEL (04/23/2020 6:01 AM CDT) Only the most recent of7 resultswithin the time period is included. Glucose 82 70 - 105 mg/dL 04/23/2020 7:01 AM [facility] Sodium 135(L) 136 - 145 mmol/L 04/23/2020 7:01 AM [facility] Potassium 3.8 3.5 - 5.1 mmol/L 04/23/2020 7:01 AM [facility] Chloride 102 98 - 107 mmol/L 04/23/2020 7:01 AM [facility] CO2 25 23 - 31 mmol/L 04/23/2020 7:01 AM [facility] Calcium 7.6(L) 8.4 - 10.4 mg/dL 04/23/2020 7:01 AM [facility] Anion Gap 8 8 - 16 mmol/L 04/23/2020 7:01 AM [facility] BUN 14 7 - 18.7 mg/dL 04/23/2020 7:01 AM [facility] Creatinine 0.60 0.57 - 1.11 mg/dL 04/23/2020 7:01 AM [facility] Alkaline Phosphatase 112 40 - 150 U/L 04/23/2020 7:01 AM [facility] ALT 29 0 - 61 U/L 04/23/2020 7:01 AM [facility] AST 34 5 - 34 U/L 04/23/2020 7:01 AM [facility] Protein Total 5.7(L) 6.4 - 8.3 gm/dL 04/23/2020 7:01 AM [facility] Albumin 2.2(L) 3.5 - 5.2 gm/dL 04/23/2020 7:01 AM [facility] Bilirubin Total 0.5 0.2 - 1.0 mg/dL 04/23/2020 7:01 AM [facility] eGFR by MDRD >60 >60 mL/min/1.7 3m2 04/23/2020 7:01 AM CDT [facility] eGFR by MDRD >60 >60 mL/min/1.7 3m2 04/23/2020 7:01 AM CDT [facility] Blood BLOOD SPECIMEN / Unknown Lab Venipuncture / Unknown 04/23/2020 6:01 AM CDT 04/23/2020 6:30 AM CDT Shira Gracia MD LAB - CHEMISTRY ORD ERABLES Performing Organization Address City/[facility]/ZIP Co de Phone Number [facility] [address] [place] [address] * PREPARE FFP UNIT(S), 1 Units (04/21/2020 6:41 AM CDT) Only the most recent of2 resultswithin the time period is included. Unit Description Thawed Plasma 5D [facility] Unit ABO AB [facility] Unit Rh POS [facility] Product Number [id number] [facility] Donor # [id number] [facility] Unit Status transfused [facility] Product Code [id number] [facility] Blood Type Barcode 8400 [facility] Expiration Date [id number] [facility] Blood Bank BLOOD SPECIMEN / Unknown 04/21/2020 6:41 AM CDT 04/21/2020 6:48 AM CDT Marisa James MD LAB - BLOOD BANK ORD ERABLES Performing Organization Address City/[facility] Co de Phone Number [facility] [address] [phone] * TYPE + SCREEN PANEL (04/21/2020 6:41 AM CDT) Only the most recent of3 resultswithin the time period is included. ABO Rh A POS 04/21/2020 7:44 AM CDT [facility] Comment:History checked. Antibody Screen NEG 0 7:44 AM CDT [facility] Blood Bank BLOOD SPECIMEN / Unknown Lab Venipuncture / Unknown 04/21/2020 6:41 AM CDT 04/21/2020 6:48 AM CDT Danilo Rodríguez MD LAB - BLOOD BANK ORD ERABLES [facility] [address] [phone] * (ABNORMAL) RENAL FUNCTION PANEL (04/21/2020 6:41 AM CDT) Only the most recent of3 resultswithin the time period is included. Glucose 118(H) 70 - 105 mg/dL 04/21/2020 7:46 AM [facility] Sodium 133(L) 136 - 145 mmol/L 04/21/2020 7:46 AM [facility] Potassium 3.0(L) 3.5 - 5.1 mmol/L 04/21/2020 7:46 AM [facility] Chloride 101 98 - 107 mmol/L 04/21/2020 7:46 AM [facility] CO2 26 23 - 31 mmol/L 04/21/2020 7:46 AM T [facility] Calcium 6.9(LL) 8.4 - 10.4 mg/dL 04/21/2020 7:46 AM [facility] Anion Gap 6(L) 8 - 16 mmol/L 04/21/2020 7:46 AM T [facility] BUN 13 7 - 18.7 mg/dL 04/21/2020 7:46 AM CDT [facility] Creatinine 0.65 0.57 - 1.11 mg/dL 04/21/2020 7:46 AM T [facility] Albumin 2.1(L) 3.5 - 5.2 gm/dL 04/21/2020 7:46 AM [facility] Phosphorus 3.6 2.3 - 4.7 mg/dL 04/21/2020 7:46 AM [facility] eGFR by MDRD >60 >60 mL/min/1.7 3m2 04/21/2020 7:46 AM [facility] eGFR by MDRD >60 >60 mL/min/1.7 3m2 04/21/2020 7:46 AM [facility] Blood BLOOD SPECIMEN / Unknown Lab Venipuncture / Unknown 04/21/2020 6:41 AM CDT 04/21/2020 6:48 AM CDT Clem Brown MD LAB - CHEMISTRY MIRI GO Performing Organization Address City/[facility]/ZIP Co de Phone Number [facility] [address] [place] [phone] * (ABNORMAL) MAGNESIUM BLOOD (04/21/2020 6:41 AM CDT) Only the most recent of4 resultswithin the time period is included. Magnesium 4.6(H) 1.6 - 2.6 mg/dL 04/21/2020 7:38 AM CDT [facility] Blood BLOOD SPECIMEN / Unknown Lab Venipuncture / Unknown 04/21/2020 6:41 AM CDT 04/21/2020 6:48 AM CDT Clem Brown MD LAB - CHEMISTRY MIRI GO Performing Organization Address [facility] Co de Phone Number [facility] [address] [place] [address] * (ABNORMAL) LDH BLOOD (04/21/2020 6:41 AM CDT) Only the most recent of4 resultswithin the time period is included. LDH 449(H) 125 - 220 U/L 04/21/2020 7:38 AM CDT [facility] Blood BLOOD SPECIMEN / Unknown Lab Venipuncture / Unknown 04/21/2020 6:41 AM CDT 04/21/2020 6:48 AM CDT Turner Castillo MD LAB - CHEMISTRY MIRI GO Performing Organization Address City/[facility]/ZIP Co de Phone Number [facility] [address] [place] [phone] * HAPTOGLOBIN (04/21/2020 6:41 AM CDT) Only the most recent of4 resultswithin the time period is included. Haptoglobin 42 30 - 200 mg/dL 04/21/2020 7:38 AM CDT [facility] Blood BLOOD SPECIMEN / Unknown Lab Venipuncture / Unknown 04/21/2020 6:41 AM CDT 04/21/2020 6:48 AM CDT Turner Castillo MD LAB - CHEMISTRY MIRI GO [facility] Organization Address City/State/ZIP Co de Phone Number [facility] [address] [place] [address] * (ABNORMAL) DIFFERENTIAL MANUAL (04/21/2020 4:45 AM CDT) Only the most recent of3 resultswithin the time period is included. WBC Auto 22.9 x10E9/L 04/21/2020 7:18 AM CDT [facility] WBC Corrected 04/21/2020 7:18 AM CDT [facility] nRBC 3 /100 WBC 04/21/2020 7:18 AM CDT [facility] Neutrophil % Manual 89(H) 44 - 73 % 04/21/2020 7:18 AM CDT [facility] Lymphocytes % Manual 5(L) 20 - 43 % 04/21/2020 7:18 AM CDT [facility] Monocytes % Manual 3(L) 5 - 13 % 2019 7:18 AM CDT [facility] Band % Manual 2 0 - 11 % 04/21/2020 7:18 AM CDT [facility] [place] Manual 1(H) <=0 % 04/21/2020 7:18 AM T [facility] Cells Counted 100 # cells 04/21/2020 7:18 AM CDT [facility] WBC Morph Normal 04/21/2020 7:18 AM CDT [facility] Anisocytosis 2+(A) None 04/21/2020 7:18 AM CDT [facility] Polychromasia 1+(A) None 04/21/2020 7:18 AM CDT [facility] Platelet Estimation Normal 04/21/2020 7:18 AM CDT [facility] Blood BLOOD SPECIMEN / Unknown Lab Venipuncture / Unknown 04/21/2020 4:45 AM CDT 04/21/2020 5:51 AM CDT Maikel Ring MD LAB - HEMATOLOGY ORDERABLES Performing Organization Address City/[facility] Co de Phone Number [facility] [address] [place] [address] * XR CHEST 2VW (04/20/2020 5:11 PM [...] - 61 U/L 04/20/2020 2:26 PM CDT [facility] Blood BLOOD SPECIMEN / Unknown Lab Venipuncture / Unknown 04/20/2020 10:42 AM CDT 04/20/2020 10:42 AM CDT Ron Quinn MD LAB - CHEMISTRY MIRI GO [facility] [address] [place] [address] * AST BLOOD (04/20/2020 10:42 AM CDT) AST 27 5 - 34 U/L 04/20/2020 2:26 PM CDT [facility] Blood BLOOD SPECIMEN / Unknown Lab Venipuncture / Unknown 04/20/2020 10:42 AM CDT 04/20/2020 10:42 AM CDT Ron Quinn MD LAB - CHEMISTRY RIGOBERTOHéctor GO Performing Organization Address [facility] Co de Phone Number [facility] [address] [place] [address] * PTT (04/20/2020 10:41 AM CDT) Only the most recent of5 resultswithin the time period is included. PTT 30.7 23.0 - 38.4 sec 04/20/2020 11:00 AM CDT [facility] Blood BLOOD SPECIMEN / Unknown Lab Venipuncture / Unknown 04/20/2020 10:41 AM CDT 04/20/2020 10:41 AM CDT Narrative [facility] - 04/20/2020 11:00 AM CDT Heparin Therapeutic Range for PTT: ??71.0 - 109.0 seconds. Turner Castillo MD LAB - COAGULATION OR DERABLES Performing Organization Address [facility] Co de Phone Number [facility] [address] [place] [address] * PT-INR (04/20/2020 10:41 AM CDT) Only the most recent of5 resultswithin the time period is included. PT 12.3 12.1 - 14.8 sec 04/20/2020 10:59 AM CDT [facility] INR 1.0 0.9 - 1.1 04/20/2020 10:59 AM CDT [facility] Blood BLOOD SPECIMEN / Unknown Lab Venipuncture / Unknown 04/20/2020 10:41 AM CDT 04/20/2020 10:41 AM CDT Narrative [facility] - 04/20/2020 10:59 AM CDT Conventional Warfarin Anticoagulant Therapy: INR Reference Range: ??2.0-3.0 Intensive Warfarin Anticoagulant Therapy: INR Reference Range: ? 2.5-3.5 Turner Castillo MD LAB - COAGULATION OR DERABLES Performing Organization Address [facility] Co de Phone Number [facility] [address] [place] [address] * TRANSFUSE RED BLOOD CELL LEUKOREDUCED UNIT(S) (04/20/2020 2:36 AM CDT) Shayna Chirinos MD NURSING - BLOOD P ADRIA TRANSFUSION * (ABNORMAL) GLUCOSE - POINT OF CARE (04/19/2020 9:02 AM CDT) Only the most recent of7 resultswithin the time period is included. Glucose WB/POC 122(H) 70 - 106 mg/dL 04/19/2020 11:57 PM CDT [facility] Specimen Type Arterial/C apillary 04/19/2020 11:57 PM CDT [facility] Blood BLOOD SPECIMEN / Unknown 04/19/2020 9:02 AM CDT 04/19/2020 11:57 PM CDT Phuong Frazier MD LAB - POINT OF CARE ORDERABLES Performing Organization Address [facility] Co de Phone Number [facility] [address] [place] [address] * LACTIC ACID BLOOD (04/19/2020 3:51 AM CDT) Only the most recent of4 resultswithin the time period is included. Lactic Acid 1.2 0.5 - 2.2 mmol/L 04/19/2020 4:27 AM CDT [facility] Blood BLOOD SPECIMEN / Unknown Venipuncture / Unknown 04/19/2020 3:51 AM CDT 04/19/2020 4:05 AM CDT Maikel Ring MD LAB - CHEMISTRY O RDERABLES Performing Organization Address [facility] Co de Phone Number [facility] [address] [place], [place] [phone] * PT PTT PANEL (04/19/2020 3:50 AM CDT) Only the most recent of5 resultswithin the time period is included. PT 12.6 12.1 - 14.8 sec 04/19/2020 4:27 AM CDT [facility] INR 1.0 0.9 - 1.1 04/19/2020 4:27 AM CDT [facility] PTT 27.8 23.0 - 38.4 sec 04/19/2020 4:27 AM CDT [facility] Blood BLOOD SPECIMEN / Unknown Venipuncture / Unknown 04/19/2020 3:50 AM CDT 04/19/2020 4:05 AM CDT Narrative [facility] - 04/19/2020 4:27 AM CDT Conventional Warfarin Anticoagulant Therapy: INR Reference Range: ??2.0-3.0 Intensive Warfarin Anticoagulant Therapy: INR Reference Range: ? 2.5-3.5 Heparin Therapeutic Range for PTT: ??71.0 - 109.0 seconds. Clem Brown MD LAB - COAGULATION OR DERABLES Performing Organization Address [facility] Co de Phone Number [facility] [address] [place] [phone] * TRANSFUSE RED BLOOD CELL LEUKOREDUCED UNIT(S) [...] - 16.0 gm/dL 04/18/2020 12:30 PM CDT [facility] Carboxyhemoglobin Arterial 0.3 0.0 - 2.5 % 04/18/2020 12:30 PM CDT [facility] Methemoglobin Arterial 1.2 0.0 - 2.0 % 04/18/2020 12:30 PM CDT [facility] Oxyhemoglobin Arterial 96 % 04/18/2020 12:30 PM CDT [facility] Mode CMV 04/18/2020 12:30 PM CDT [facility] Aamir's Test N/A 04/18/2020 12:30 PM CDT [facility] FI O2 30 % 04/18/2020 12:30 PM CDT [facility] Tidal Volume 450 mL 04/18/2020 12:30 PM CDT [facility] PEEP (cmH2O) 8.0 04/18/2020 12:30 PM CDT [facility] Respiratory Rate 20.0 04/18/20 20 12:30 PM CDT [facility] Sample Site Art Line 04/18/2020 12:30 PM CDT [facility] Sample Type Arterial 04/18/2020 12:30 PM CDT [facility] Pivot End Polisher ID [id number] 04/18/2020 12:30 PM CDT [facility] Blood, arterial ARTERIAL BLOOD SPECIMEN / Unknown 04/18/2020 12:21 PM CDT 04/18/2020 12:21 PM CDT Clem Brown MD LAB - BLOOD GASES OR DERABLES Performing Organization Address City/State/[facility] Co de Phone Number [facility] [address] [place] [address] * TRANSFUSE RED BLOOD CELL LEUKOREDUCED UNIT(S) [...] - 1.7 % 04/18/2020 9:52 AM CDT [facility] Reticulocyte Absolute 0.0384 0.0041 - 0.0971 x10E6/uL 04/18/2020 9:52 AM CDT [facility] Reticulocyte Immature Fractionated 36.6(H) 0.9 - 14.3 % 04/18/2020 9:52 AM CDT [facility] Hemoglobin Retic 30.2 27.8 - 36.8 pg 04/18/2020 9:52 AM CDT [facility] Blood BLOOD SPECIMEN / Unknown Venipuncture / Unknown 04/18/2020 9:30 AM CDT 04/18/2020 9:42 AM CDT Heraclio Dave MD LAB - HEMATOLOGY ORD ERABLES [facility] [address] [place] [address] * VITAMIN B12 (04/18/2020 9:30 AM CDT) Only the most recent of2 resultswithin the time period is included. Vitamin B12 220 213 - 816 pg/mL 04/18/2020 10:43 AM CDT [facility] Blood BLOOD SPECIMEN / Unknown Venipuncture / Unknown 04/18/2020 9:30 AM CDT 04/18/2020 9:42 AM CDT Heraclio Dave MD LAB - CHEMISTRY MIRI GO Performing Organization Address City/[facility]/ZIP Co de Phone Number [facility] [address] [place] [address] * IMMUNOGLOBULINS IGG/IGM/IGA PANEL (04/18/2020 9:30 AM CDT) Pathologist [facility] IgA 82 65 - 421 mg/dL 04/18/2020 3:33 PM CDT [facility] IgG 1,629 552-1,631 mg/dL 04/18/2020 3:33 PM CDT [facility] IgM 149 33 - 293 mg/dL 04/18/2020 3:33 PM CDT [facility] Blood BLOOD SPECIMEN / Unknown Venipuncture / Unknown 04/18/2020 9:30 AM CDT 04/18/2020 9:42 AM CDT Heraclio Dave MD LAB - CHEMISTRY MIRI GO Performing Organization Address [facility] Co de Phone Number [facility] [address] [place] [phone] * (ABNORMAL) [id number] ANTIBODY (04/18/2020 9:29 AM CDT) [facility] [id number] Antibody 15(H) <12 Units/mL 04/22/2020 5:07 PM CDT [facility] Comment: Results for this test are for research purposes only by the assay's division manager. ??The performance characteristics of this product have not been established. ??Results should not be used as a diagnostic procedure without confirmation of the diagnosis by another medically established diagnostic product or procedure. Blood BLOOD SPECIMEN / Unknown Venipuncture / Unknown 04/18/2020 9:29 AM CDT 04/18/2020 9:42 AM CDT Narrative [facility] - 04/22/2020 5:07 PM CDT Performed at: ??01 - [facility] ??[id number] Educational Psychology Teacher: Kiran Guerra MD, Phone: ??[phone] Heraclio Dave MD LAB - COAGULATION OR DERABLES Performing Organization Address City/[facility]/ZIP Co de Phone Number [facility]) [address] [place] [address] * REF LAB COMMENT (04/18/2020 9:29 AM CDT) Comment Comment 04/20/2020 7:06 PM CDT [facility] Comment: Severe deficiency of LWXKXW67 (less than 10% activity) is a relatively specific finding in patients with a clinical diagnosis of either hereditary or acquired thrombotic thrombocytopenic purpura (TTP). Normal to moderately reduced OSQIKR73 activity results do not exclude a diagnosis of TTP. Conditions that could have PACZSK14 activity greater than 10% include hemolytic uremic syndrome (HUS), atypical hemolytic uremic syndrome (aHUS), and other thrombotic microangiopathies associated with hematopoietic stem cell and solid organ transplantation, liver disease, DIC, sepsis, , or effects of certain medications (eg, clopidogrel, cyclosporine, mitomycin C, quinine). Blood BLOOD SPECIMEN / Unknown Venipuncture / Unknown 04/18/2020 9:29 AM CDT 04/18/2020 9:42 AM CDT Narrative [facility]) - 04/20/2020 7:06 PM CDT Performed at: ??01 - [facility] ??[id number] Educational Psychology Teacher: Kiran Guerra MD, Phone: ??[phone] Heraclio Dave MD LAB - CHEMISTRY ORDE RABLES Performing Organization Address City/[facility]/ZIP Co de Phone Number [facility]) [address] [place] [address] * (ABNORMAL) [id number] ACTIVITY (04/18/2020 9:29 AM CDT) EASCXG10 Activity 41.7(L) >66.8 % 04/20/2020 7:06 PM CDT [facility] Blood BLOOD SPECIMEN / Unknown Venipuncture / Unknown 04/18/2020 9:29 AM CDT 04/18/2020 9:42 AM CDT Narrative [facility] ([facility] - 04/20/2020 7:06 PM CDT Test(s) 595180-PCNIFZ90 Activity was developed and its performance characteristics determined by [facility]. It has not been cleared or approved by the Food and Drug Administration. Performed at: ??01 - [facility] [address] ??[id number] Educational Psychology Teacher: Kiran Guerra MD, Phone: ??[phone] Heraclio Dave MD LAB - COAGULATION OR DERABLES [facility] [address] [place] [address] * BESSY DIRECT (04/18/2020 9:29 AM CDT) Direct Bessy (LANDY) NEG 04/18/2020 10:25 AM CDT [facility] Blood Bank BLOOD SPECIMEN / Unknown Venipuncture / Unknown 04/18/2020 9:29 AM CDT 04/18/2020 9:43 AM CDT Heraclio Dave MD LAB - BLOOD BANK ORD ERABLES Performing Organization Address [facility] Co de Phone Number [facility] [address] [place] [address] * FIBRINOGEN ACTIVITY (04/18/2020 9:29 AM CDT) Only the most recent of6 resultswithin the time period is included. Fibrinogen 217 200 - 400 mg/dL 04/18/2020 9:59 AM CDT [facility] Blood BLOOD SPECIMEN / Unknown Venipuncture / Unknown 04/18/2020 9:29 AM CDT 04/18/2020 9:42 AM CDT Annabella Johnson MD LAB - COAGULATION OR DERABLES Performing Organization Address City/[facility]/ZIP Co de Phone Number [facility] [address] [place] [address] * PATHOLOGY PERIPHERAL SMEAR REVIEW (04/18/2020 8:31 AM CDT) Only the most recent of2 resultswithin the time period is included. Case Report Pathology Interpretation Report ? Case: [id number] ? Authorizing Provider: ??Heraclio Dave MD ? Collected: ? 04/18/2020 08:31 AM ? [facility] ? Received: ?04/18/2020 08:31 AM ? Pathologist: ? Kathleen Clay, ? MD ? Specimen: ?Blood ? 04/18/2020 2:22 PM CDT [facility] Final Diagnosis Final diagnosis: - Leukocytosis with left-shift - Normocytic, normochromic anemia - Severe thrombocytopenia A comparison with a previous slide was requested ([id number]). Review of the morphologic and differential count [...] correlation is advised. 04/18/2020 2:22 PM CDT [facility] Blood BLOOD SPECIMEN / Unknown 04/18/2020 8:31 AM CDT 04/18/2020 8:31 AM CDT Heraclio Dave MD LAB - PATHOLOGY/CYTO LOGY ORDERABLES Performing Organization Address City/State/[facility] Co de Phone Number [facility] [address] [place], [place] [phone] * XR CHEST 1VW PORTABLE (04/18/2020 8:15 [...] - 14.8 sec 04/18/2020 8:29 AM CDT [facility] INR 1.1 0.9 - 1.1 04/18/2020 8:29 AM CDT [facility] PTT 27.5 23.0 - 38.4 sec 04/18/2020 8:29 AM CDT [facility] Fibrinogen 278 200 - 400 mg/dL 04/18/2020 8:29 AM CDT [facility] D-Dimer 3.18(H) 0.27 - 0.50 ug/mL FEU 04/18/2020 8:29 AM CDT [facility] Platelet Count 51(L) 153 - 416 x10E9/L 04/18/2020 8:29 AM CDT [facility] Blood BLOOD SPECIMEN / Unknown Venipuncture / Unknown 04/18/2020 7:53 AM CDT 04/18/2020 8:09 AM CDT [facility] - 04/18/2020 8:29 AM [...] Brown MD LAB - COAGULATION OR DERABLES [facility] [address] [place], [place] [id number] * (ABNORMAL) SLIDE SCAN HEMATOLOGY (04/18/2020 5:37 AM CDT) Only the most recent of3 resultswithin the time period is included. [facility] Platelet Estimation Decrease d(A) Normal, Adequate platelets 04/18/2020 7:07 AM CDT [facility] Anisocytosis 1+(A) None 04/18/2020 7:07 AM CDT [facility] Poikilocytosis 1+(A) None 04/18/2020 7:07 AM CDT [facility] Polychromasia Occasion al(A) None 04/18/2020 7:07 AM CDT [facility] [place] Cells 1+(A) None 04/18/2020 7:07 AM CDT [facility] Blood BLOOD SPECIMEN / Unknown Venipuncture / Unknown 04/18/2020 5:37 AM CDT 04/18/2020 5:45 AM CDT Maikel Ring MD LAB - HEMATOLOGY ORDERABLES [facility] [address] [place] [address] * (ABNORMAL) TRIGLYCERIDES BLOOD (04/18/2020 5:37 AM CDT) [facility] Triglycerides 160(H) <150 mg/dL 04/18/2020 8:16 AM CDT [facility] Blood BLOOD SPECIMEN / Unknown Venipuncture / Unknown 04/18/2020 5:37 AM CDT 04/18/2020 5:45 AM CDT Snehal Crowe MD LAB - CHEM ISTRY ORDERABLES [facility] [address] [place] [address] * HEMOGLOBIN A1C (04/18/2020 4:13 AM CDT) [facility] Hemoglobin A1c 5.2 4.2 - 5.6 % 04/18/2020 6:37 AM CDT [facility] Estimated Average Glucose 103 mg/dL 04/18/2020 6:37 AM CDT [facility] Blood BLOOD SPECIMEN / Unknown Venipuncture / Unknown 04/18/2020 4:13 AM CDT 04/18/2020 4:16 AM CDT Narrative [facility] - 04/18/2020 6:37 AM CDT The following cutoff levels are recommended by [place] [employer]. ?? A1c ??> 6.5% : [...] Ring MD LAB - CHEMISTRY O RDERABLES [facility] [address] [place] [address] * (ABNORMAL) BLOOD GASES CORD [...] - 24 mmol/L 04/18/2020 3:26 AM CDT [facility] Comment:L BE Cord Venous -15.6 mmol/L 04/18/2020 3:26 AM CDT [facility] O2 Saturation Cord Venous 26 % 04/18/2020 3:26 AM CDT [facility] Aamir's Test N/A 04/18/2020 3:26 AM CDT [facility] Sample Site Other 04/18/2020 3:26 AM CDT [facility] Sample Type Cord Blood Venous 04/18/2020 3:26 AM CDT [facility] Pivot End Polisher ID [id number] 04/18/2020 3:26 AM CDT [facility] Notified Who jerrod oxygen tank filler 04/18/2020 3:26 AM CDT [facility] Notification Time 04/18/2020 03:26 04/18/2020 3:26 AM CDT [facility] Notified By octavia morrissey 04/18/2020 3:26 AM CDT [facility] Blood CORD BLOOD SPECIMEN / Unknown 04/18/2020 3:12 AM CDT 04/18/2020 3:12 AM CDT Afsaneh Sandoval MD LAB - BLOOD GASES OR DERABLES [facility] [address] [phone] * (ABNORMAL) BLOOD GASES CORD ARTERIAL (04/18/2020 3:12 AM CDT) Only the most recent of2 resultswithin the time period is included. pH Cord Arterial 6.92(LL) 7.20 - 7.34 pH 04/18/2020 3:27 AM CDT [facility] Comment:LL pCO2 Cord Arterial 89(HH) 45 - 55 mm hg 04/18/2020 3:27 AM CDT [facility] Comment:HH pO2 Cord Arterial 04/18/2020 3:27 AM CDT [facility] Comment:< HCO3 Cord Arterial 18.0(L) 22.0 - 24.0 mmol/L 04/18/2020 3:27 AM CDT [facility] Comment:L BE Cord Arterial -16.3 mmol/L 04/18/20 20 3:27 AM CDT [facility] O2 Saturation Cord Arterial 04/18/2020 3:27 AM CDT [facility] Comment:< Aamir's Test N/A 04/18/2020 3:27 AM CDT [facility] Sample Site Other 04/18/2020 3:27 AM CDT [facility] Sample Type Cord blood Arterial 04/18/2020 3:27 AM CDT [facility] Pivot End Polisher ID [id number] 04/18/2020 3:27 AM CDT [facility] Notified Renea elder oxygen tank filler 04/18/2020 3:27 AM CDT [facility] Notification Time 04/18/2020 03:27 04/18/2020 3:27 AM CDT [facility] Notified By octavia morrissey 04/18/2020 3:27 AM CDT [facility] Blood, arterial CORD BLOOD SPECIMEN / Unknown 04/18/2020 3:12 AM CDT 04/18/2020 3:12 AM CDT Afsaneh Sandoval MD LAB - BLOOD GASES OR DERABLES Performing Organization Address City/State/[facility] Co de Phone Number [facility] [address] [phone] * ETT LINE PERFORMABLE (04/18/2020 3:04 AM CDT) Narrative Ying Ro APRN-CORNER FORMER - 04/18/2020 3:04 AM CDT Ying Ro APRN-CRNA ? 04/18/2020 ??3:04 AM Endotracheal Tube Placement: ? Patient Location: OB. Intubation Event Date/Time: ??04/18/2020 2:51 AM Procedure: intubation (36556). Procedure Section: ?? Sedation: under general anesthesia. [...] Reactive Non Reactive 04/17/2020 10:02 PM CDT [facility] Comment: No Laboratory evidence of syphilis infection. ?? Note: ??Circulating antibodies may be low or undetectable in early infection. ??If recent exposure is suspected, re-draw sample in 2-4 weeks and repeat testing. Blood BLOOD SPECIMEN / Unknown Venipuncture / Unknown 04/17/2020 8:57 PM CDT 04/17/2020 9:09 PM CDT Mayuri Norton MD LAB - SEROLOGY ORDER CRUZITO [facility] [address] [place] [address] * HIV-1 HIV-2 ANTIBODY + HIV P24 AG PANEL (04/17/2020 8:57 PM CDT) Only the most recent of2 resultswithin the time period is included. HIV1/2 Ab + P24 Ag Non Reactive Non Reactive 04/17/2020 10:02 PM CDT [facility] Blood BLOOD SPECIMEN / Unknown Venipuncture / Unknown 04/17/2020 8:57 PM CDT 04/17/2020 9:09 PM CDT Narrative [facility] - 04/17/2020 10:02 PM CDT No Laboratory evidence of HIV infection. Mayuri Norton MD LAB - CHEMISTRY MIRI GO [facility] [address] [place], [place] [id number] * (ABNORMAL) URINALYSIS REFLEX TO MICROSCOPIC NO CULTURE (04/17/2020 8:57 PM CDT) Color UA Yellow Straw, Yellow 04/17/2020 9:18 PM CDT [facility] Clarity UA Slt Cloudy(A) Clear 04/17/2020 9:18 PM CDT [facility] Glucose UA Negative Negative 04/17/2020 9:18 PM CDT [facility] Bilirubin UA Negative Negative 04/17/2020 9:18 PM CDT [facility] Ketone UA Negative Negative 04/17/2020 9:18 PM CDT [facility] Specific [place] UA 1.015 1.005 - 1.030 04/17/2020 9:18 PM CDT [facility] Blood UA 3+(A) Negative 04/17/2020 9:18 PM CDT [facility] pH UA 6.0 5.0 - 8.0 pH 04/17/2020 9:18 PM CDT [facility] Protein UA 1+(A) Negative 04/17/2020 9:18 PM CDT [facility] Urobilinogen UA Negative Negative mg/dL 04/17/2020 9:18 PM CDT [facility] Nitrite UA Negative Negative 04/17/2020 9:18 PM CDT [facility] Leukocyte UA Negative Negative 04/17/2020 9:18 PM CDT [facility] Urine Microscopy Urine microscopy to follow 04/17/2020 9:18 PM CDT [facility] Urine URINE SPECIMEN OBTAINED BY CLEAN CATCH PROCEDURE / Unknown Collection / Unknown 04/17/2020 8:57 PM CDT 04/17/2020 9:08 PM CDT Narrative [facility] - 04/17/2020 9:18 PM CDT Annabella Johnson MD LAB - URINALYSIS ORD ERABLES Performing Organization Address [facility]/ZIP Co de Phone Number [facility] [address] [place] [phone] * (ABNORMAL) URINE MICROSCOPIC ONLY (04/17/2020 8:57 PM CDT) RBC UA >100(A) None Seen, 0-2, 3-5 # /hpf 04/17/2020 9:47 PM CDT [facility] WBC UA 6-10(A) None Seen, 0-5 # /hpf 04/17/2020 9:47 PM CDT [facility] Bacteria UA None Seen None Seen 04/17/2020 9:47 PM CDT [facility] Squamous Epithelial Cells 6-10(A) None Seen, 0-2, 3-5 /hpf 04/17/2020 9:47 PM CDT [facility] Urine URINE SPECIMEN OBTAINED BY CLEAN CATCH PROCEDURE / Unknown Collection / Unknown 04/17/2020 8:57 PM CDT 04/17/2020 9:08 PM CDT Narrative [facility] - 04/17/2020 9:47 PM CDT Annabella Johnson MD LAB - URINALYSIS ORD ERABLES Performing Organization Address [facility] Co de Phone Number [facility] [address] [place] [address] * (ABNORMAL) RUBELLA ANTIBODY IGG (04/17/2020 8:57 PM CDT) Only the most recent of2 resultswithin the time period is included. Rubella Antibody <0.90(L) Immune >0.99 index 04/19/2020 7:09 AM CDT [facility] Comment: ?Non-immune ? <0.90 ?Equivocal ??0.90 - 0.99 ?Immune ? >0.99 Blood BLOOD SPECIMEN / Unknown Venipuncture / Unknown 04/17/2020 8:57 PM CDT 04/17/2020 9:09 PM CDT Narrative [facility]) - 04/19/2020 7:09 AM CDT Performed at: ??01 - [facility] [place] [address] [facility], [place], [place] [id number] Educational Psychology Teacher: Tyrone Rider PhD, Phone: ??[phone] Mayuri Norton MD LAB - SEROLOGY ORDER CRUZITO [facility] [address] [place] [address] * (ABNORMAL) CULTURE URINE (04/17/2020 8:57 PM CDT) Only the most recent of2 resultswithin the time period is included. Culture Urine 50,000-100,000 CFU/mL Escherichia coli(A) BERT 04/19/2020 10:33 AM CDT [facility] Culture Urine 50,000-100,000 CFU/mL Streptococcus agalactiae (Group B)(A) 04/19/2020 10:33 AM CDT [facility] Culture Urine 50,000-100,000 CFU/mL urogenital aneudy BERT 04/19/2020 10:33 AM CDT [facility] Urine URINE SPECIMEN OBTAINED BY CLEAN CATCH PROCEDURE / Unknown Collection / Unknown 04/17/2020 8:57 PM CDT 04/17/2020 9:08 PM CDT Narrative [facility] - 04/19/2020 10:33 AM CDT [...] Johnson MD LAB - MICROBIOLOGY O RDERABLES [facility] [address] [phone] * (ABNORMAL) DRUG SCREEN TOX URINE PANEL (04/17/2020 8:57 PM CDT) Only the most recent of3 resultswithin the time period is included. [facility] Amphetamines Screen Urine Detected(A) Not detected [...] detected Not detected 04/17/2020 9:38 PM CDT [facility] Methadone Screen Urine Not detected Not detected 04/17/2020 9:38 PM CDT [facility] Opiate Screen Urine Not detected Not detected 04/17/2020 9:38 PM CDT [facility] Phencyclidine Screen Urine Not detected Not detected 04/17/2020 9:38 PM CDT [facility] Urine URINE / Unknown Collection / Unknown 04/17/2020 8:57 PM CDT 04/17/2020 9:08 PM CDT Narrative [facility] - 04/17/2020 9:38 PM CDT [...] MD LAB - URINE CHEMISTR Y ORDERABLES [facility] [address] [place] [address] * BLOOD TYPE VERIFICATION (04/17/2020 8:24 PM CDT) Only the most recent of2 resultswithin the time period is included. ABO Rh A POS 04/17/2020 8:4 7 PM CDT [facility] Blood Bank BLOOD SPECIMEN / Unknown Venipuncture / Unknown 04/17/2020 8:24 PM CDT 04/17/2020 8:24 PM CDT Phuong Frazier MD LAB - BLOOD BANK OR DERABLES Performing Organization Address City/[facility]/ZIP Co de Phone Number [facility] [address] [phone] * PREPARE (CROSSMATCH) RBC UNIT(S), 1 Units (04/17/2020 8:12 PM CDT) Only the most recent of7 resultswithin the time period is included. Unit Description AS1 LR PRBC [facility] Unit ABO A [facility] Unit Rh POS [facility] Product Number R02 [facility] Unit Donor # [id number] [facility] Unit Status released [facility] Product [facility] [id number] [facility] Blood Type Barcode 6200 [facility]piration Date S [facility] Unit Description AS1 LR PRBC [facility] Unit ABO A [facility] Unit Rh POS [facility] Product Number R02 [facility] Donor # [id number] [facility] Unit Status transfused [facility] Product [facility] [id number] [facility] Blood Type Barcode 6200 [facility] Expiration Date [id number] [facility] Blood Bank BLOOD SPECIMEN / Unknown 04/17/2020 8:12 PM CDT 04/17/2020 8:16 PM CDT Shayna Chirinos MD LAB - BLOOD BANK ORDERABLES [facility] [address] [place], [place] [id number] [place] [address] * [facility]PARE CRYOPRECIPITATE [facility] (S), 2 Units (04/17/2020 8:12 PM CDT) Unit Description Thawed Cryp Clsd [facility] ABO A [facility] Rh POS [facility] Product Number [id number] [facility] Donor # [id number] [facility] Unit Status transfused [facility] Product Code [id number] [facility] Blood Type Barcode 6200 [facility] Expiration Date S [facility] Unit Description Thawed Cryp Clsd [facility] Unit ABO A [facility] Unit Rh POS [facility] Product Number [id number] [facility] Donor # [id number] [facility] Unit Status transfused [facility] Product Code [id number] [facility] Blood Type Barcode 6200 [facility] Expiration Date S [facility] Blood Bank BLOOD SPECIMEN / Unknown 04/17/2020 8:12 PM CDT 04/17/2020 8:16 PM CDT Phuong Frazier MD LAB - BLOOD BANK OR DERABLES [facility] [address] [place] [address] * PREPARE PLATELET PHERESIS UNIT(S), 2 Units (04/17/2020 8:12 PM CDT) Only the most recent of3 resultswithin the time period is included. Unit Description LR PLT Pher IRR [facility] ABO AB [facility] Unit Rh POS [facility] Product Number P14 [facility] Donor # [id number] [facility] Unit Status transfused [facility] Product Code [id number] [facility] Blood Type Barcode 8400 [facility] Expiration Date S [facility] Unit Description LR PLT Pheresis [facility] Unit ABO A [facility] Unit Rh POS [facility] Product Number P01 [facility] Donor # [id number] [facility] Unit Status released [facility] Product Code [id number] [facility] Blood Type Barcode 6200 [facility] Expiration Date [facility] Unit Description LR PLT Pheresis [facility] Unit ABO A [facility] Unit Rh POS [facility] Product Number P04 [facility] Unit Donor # [id number] [facility] Unit Status released [facility] Product [facility] [id number] [facility] Blood Type Barcode 6200 [facility] Expiration Date S [facility] Blood Bank BLOOD SPECIMEN / Unknown 04/17/2020 8:12 PM CDT 04/17/2020 8:16 PM CDT Afsaneh Sandoval MD LAB - BLOOD BANK ORD ERABLES [facility] [address] [phone] * SONOGRAM - COMPLETE (01/23/2020 2:48 PM CDT) Only the most recent of2 resultswithin the time period is included. Anatomical Region Laterality Modality Other 01/23/2020 2:48 PM CDT Narrative 01/23/2020 4:21 PM CDT ? [facility] ? [facility] ?PHONE: ??FAX: FETUS A Pat. Name: ?HILLARY DO No: ?[id number] Study Date: ?? 01/23/2020 ??2:48pm , Age: ? 1990, 29 Pregnancies: ?? 4, Para 2, Ab 1 Height: ? 63 in Weight: ? 117 lb LMP: ?Unknown GA by Base: ?? 25w6d ?? FABIAN: 05/01/2020 GA by US: ? 25w2d ?? FABIAN: 05/05/2020 GA Selected: ??25w6d (From [facility]) FABIAN: ?05/01/2020 Referring MD: Edgard, , [facility] Plate Fitter: ??Cintia Messina, VISHNU, RVT CPT4: ? 34819 [phone] BMI: ?20.72 Hist/Ind: ? DC/DA Twins ? Anatomy Screen ?Tobacco Use ?Marijuana/Methamphetamine ?use in early MEASUREMENTS & AGE ? GROWTH EVALUATION Measurement ??GA ? Range ? Srce %for GA Ratios ----- ---- ------- BPD ??6.1 cm 24w5d (37p7q-14j9h) Hadl BPD 9% FL/BPD 0.75 (0.71 - 0.87) HC ??23.0 cm 25w0d (52y5b-37d1u) Hadl HC ??7% FL/AC ??0.21 (0.20 - 0.24) AC ??21.7 cm 26w1d (16w0k-87j5d) Hadl AC ??53% HC/AC ??1.06 (1.01 - 1.20) FL ?? 4.5 cm 25w0d (34k0i-76z8v) Hadl FL ??15% CI ? 0.74 (0.70 - 0.86) HL ?? 4.4 cm 26w1d (57z7r-53v8e) Dontae HL ??55% GA for sonogram 25w2d (90i7t-98q1t) ?? Weight Estimate: based on (BPD,HC,AC,FL) Avg [...] FETUS B Pat. Name: ?HILLARY DO. No: ?[id number] Study Date: ?? 01/23/2020 ??2:48pm , Age: ? 1990, 29 Pregnancies: ?? 4, Para 2, Ab 1 Height: ? 63 in Weight: ? 117 lb LMP: ?Unknown GA by Base: ?? 25w6d ?? FABIAN: 05/01/2020 GA by US: ? 25w1d ?? FABIAN: 05/06/2020 GA Selected: ??25w6d (From [facility]) FABIAN: ?05/01/2020 Referring MD: Edgard, , [facility] Plate Fitter: ??Cintia Messina, VISHNU, RVT CPT4: ? 82683 [phone] Hist/Ind: ? DC/DA Twins ? Anatomy Screen ?Tobacco Use ?Marijuana/Methamphetamine ?use in early MEASUREMENTS & AGE ? GROWTH EVALUATION Measurement ??GA ? Range ? Srce %for GA Ratios ----- ---- ------- BPD ??5.9 cm 24w0d (37p6x-79v5r) Hadl BPD 2% FL/BPD 0.77 (0.71 - 0.87) HC ??22.4 cm 24w3d (80q2l-36n1g) Hadl HC ??2% FL/AC ??0.20 (0.20 - 0.24) AC ??22.7 cm 27w0d (44h4m-43c8w) Hadl AC ??78% HC/AC ??0.99 (1.01 - 1.20* FL ?? 4.5 cm 25w0d (21t7w-39a4y) Hadl FL ??15% CI ? 0.74 (0.70 - 0.86) HL ?? 4.2 cm 25w1d (93r0j-83h8m) Dontae HL ??38% GA for sonogram 25w1d (69d3g-47d3z) ?? Weight Estimate: based on (BPD,HC,AC,FL) Avg [...] <Electronic Signature> ??01/23/2020 04:18pm Walter Mota MD [facility] ORDERABLES * RPR W REFLEX TO TITER (MONITOR) (12/19/2019 3:22 PM CDT) [facility] RPR Monitor Nonreactive Nonreactive 12/20/2019 7:32 AM CDT [facility] Blood BLOOD SPECIMEN / Unknown Venipuncture / Unknown 12/19/2019 3:22 PM CDT 12/19/2019 3:40 PM CDT Phuong Quinones MD LAB - CHEMISTRY MIRI GO Performing Organization Address [facility]/State/ZIP Co de Phone Number [facility] [address] [place] [address] * IMAGING RADIOLOGY XRAY RESULTS [...] - 38.4 Seconds 12/11/2019 10:03 AM CDT [facility] PT 12.3 12.1 - 14.8 Seconds 12/11/2019 10:03 AM T [facility] INR 0.9 See Comment 12/11/2019 10:03 AM [facility] [place] Buffer 41.1 Seconds 020 10:03 AM [facility] [place] Phospholipid 38.7 Seconds 12/11/2019 10:03 AM [facility] [place] Delta 2.4 <8.0 Seconds 12/11/2019 10:03 AM [facility] Interpretation [place] Negative 12/11/2019 10:03 AM [facility] Comment:Up to 15-20% of jhony ents [...] Pino MD LAB - HEMATOLOGY ORD ERABLES [facility] [address] [address] [phone] * HEPATITIS C RNA QUANTITATIVE (12/08/2019 11:34 AM CDT) Only the most recent of2 resultswithin the time period is included. [facility] Hepatitis C Virus Quantitation [id number] IU/mL 12/19/2019 5:07 PM CDT [facility] Hepatitis C Virus Log 10 5.959 log10 IU/mL 12/19/2019 5:07 PM CDT [facility] ([facility] Test Information Comment 12/19/19 5:07 PM CDT [facility] Comment:The quantitative ran ge of this assay is 15 IU/mL to 100 million IU/mL. Blood BLOOD SPECIMEN / Unknown Lab Venipuncture / Unknown 12/08/2019 11:34 AM CDT 12/08/2019 1:41 PM CDT Narrative [facility] ([facility] - 12/19/2019 5:07 PM CDT Performed at: ??01 - [facility] [address] ??[id number] Educational Psychology Teacher: Kiran Guerra MD, Phone: ??[phone] Christinao Pino MD LAB - CHEMISTRY MIRI GO [facility] [address] [place] [address] * (ABNORMAL) CARDIOLIPIN ANTIBODY IGG/IGM PANEL (12/08/2019 11:34 AM CDT) [facility] Cardiolipin Antibody IgG <9 0 - 14 GPL U/mL 12/11/2019 4:09 PM CDT [facility] Comment: ?Negative: ?<15 ?Indeterminate: ? 15 - 20 ?Low-Med Positive: >20 - 80 ?High Positive: ? >80 Cardiolipin Antibody IgM 29(H) 0 - 12 MPL U/mL 12/11/2019 4:09 PM CDT [facility] ([facility] Comment: ?Negative: ?<13 ?Indeterminate: ? 13 - 20 ?Low-Med Positive: >20 - 80 ?High Positive: ? >80 Blood BLOOD SPECIMEN / Unknown Lab Venipuncture / Unknown 12/08/2019 11:34 AM CDT 12/08/2019 12:32 PM CDT Narrative [facility] - 12/11/2019 4:09 PM CDT Performed at: ??01 - [facility] [address] [place], [place] ??[id number] Educational Psychology Teacher: Tyrone Rider PhD, Phone: ??[phone] Christiano Pino MD LAB - SEROLOGY ORDER CRUZITO [facility] [address] [place] [address] * MARQUITA BLOOD SCREEN W/REFLEX TITER (12/08/2019 11:34 AM CDT) [facility] Negative Negative 12/10/2019 10:30 AM CDT [facility] Blood BLOOD SPECIMEN / Unknown Lab Venipuncture / Unknown 12/08/2019 11:34 AM CDT 12/08/2019 12:31 PM CDT Narrative [facility] - 12/10/2019 10:30 AM CDT Methodology: Indirect Immunofluorescence Assay (IFA) utilizing Hep-2-Gamma cells. Christaino Pino MD LAB - CHEMISTRY MIRI GO [facility] [address] [place] [address] * BETA-2 GLYCOPROTEIN 1 ANTIBODY IGG/IGM PANEL (12/08/2019 11:34 AM CDT) [facility] Beta-2 Glycoprotein I Antibody IgG <9 0 - 20 GPI IgG units 12/12/2019 3:35 AM CDT [facility] ([facility] Comment: The reference interval reflects a 3SD or 99th percentile interval, which is thought to represent a potentially clinically significant result in accordance with the International Consensus Statement on the classification criteria for definitive antiphospholipid syndrome (APS). J Thromb Haem 2006;4:295-306. Beta-2 Glycoprotein I Antibody IgM 9 0 - 32 GPI IgM units 12/12/2019 3:35 AM CDT [facility] ([facility] Comment: The reference interval reflects a 3SD or 99th percentile interval, which is thought to represent a potentially clinically significant result in accordance with the International Consensus Statement on the classification criteria for definitive antiphospholipid syndrome (APS). J Thromb Haem 2006;4:295-306. Blood BLOOD SPECIMEN / Unknown Lab Venipuncture / Unknown 12/08/2019 11:34 AM CDT 12/08/2019 12:32 PM CDT Narrative [facility] - 12/12/2019 3:35 AM CDT Performed at: ??01 - [facility] ??[id number] Educational Psychology Teacher: Kiran Guerra MD, Phone: ??[phone] Christiano Pino MD LAB - CHEMISTRY MIRI GO [facility] [address] [place] [address] * (ABNORMAL) HEPATITIS SCREEN ACUTE (12/08/2019 11:34 AM CDT) [facility] HAV Antibody IgM Non Reactive Non Reactive 12/08/2019 1:48 PM CDT [facility] HBsAg Non Reactive Non Reactive 12/08/2019 1:48 PM CDT [facility] HBc Antibody IgM Non Reactive Non Reactive 12/08/2019 1:48 PM CDT [facility] HCV Antibody Screen REACTIVE(A) Non Reactive 12/08/2019 1:48 PM CDT [facility] Blood BLOOD SPECIMEN / Unknown Lab Venipuncture / Unknown 12/08/2019 11:34 AM CDT 12/08/2019 12:32 PM CDT Narrative [facility] - 12/08/2019 1:48 PM CDT A reactive result is consistent with current HCV infection or past HCV infection that has been resolved. Reflex testing to Hepatitis C Virus RNA Quantitative, Real Time PCR will be performed. See separate report. Christiano Pino MD LAB - CHEMISTRY MIRI GO Performing Organization Address [facility]/ZIP Co de Phone Number [facility] [address] [place] [address] * TSH REFLEX FREE T4 (12/08/2019 7:03 AM CDT) TSH 0.826 0.350 - 4.940 uIU/mL 12/08/2019 11:02 AM CDT [facility] Blood BLOOD SPECIMEN / Unknown Lab Venipuncture / Unknown 12/08/2019 7:03 AM CDT 12/08/2019 7:48 AM CDT Christiano Pino MD LAB - CHEMISTRY MIRI GO Performing Organization Address [facility] Co de Phone Number [facility] [address] [place] [address] * (ABNORMAL) CYTOMEGALOVIRUS ANTIBODY IGG/IGM BLOOD (12/08/2019 7:03 AM CDT) Cytomegalovirus Antibody IgG 5.40(H) 0.00 - 0.59 U/mL 12/10/2019 8:08 AM CDT [facility] Comment: ? Negative ?<0.60 ? Equivocal ?? 0.60 - 0.69 ? Positive ?>0.69 Cytomegalovirus Antibody IgM <30.0 0.0 - 29.9 AU/mL 12/10/2019 8:08 AM CDT [facility] Comment: ?Negative ? <30.0 ?Equivocal ??30.0 - 34.9 ?Positive ? >34.9 A positive result is generally indicative of acute infection, reactivation or persistent IgM production. Blood BLOOD SPECIMEN / Unknown Lab Venipuncture / Unknown 12/08/2019 7:03 AM CDT 12/08/2019 7:48 AM CDT Narrative [facility] - 12/10/2019 8:08 AM CDT Performed at: ??01 - [facility] [address] [place], [place] ??[id number] Educational Psychology Teacher: Tyrone Rider PhD, Phone: ??[phone] Pattie Castellon MD LAB - CHEMISTRY ORD ERABLES [facility] [address] [place] [address] * RUBELLA ANTIBODY IGM TITER (12/08/2019 7:03 AM CDT) Rubella Antibody IgM <20.0 0.0 - 19.9 AU/mL 12/10/2019 8:08 AM CDT [facility] Comment: ? Negative ?<20.0 ? Equivocal ? 20.0 - 24.9 ? Positive ?>24.9 Blood BLOOD SPECIMEN / Unknown Lab Venipuncture / Unknown 12/08/2019 7:03 AM CDT 12/08/2019 8:17 AM CDT Narrative [facility] - 12/10/2019 8:08 AM CDT Performed at: ??01 - [facility] [address], [place], [place] ??[id number] Educational Psychology Teacher: Tyrone Rider PhD, Phone: ??[phone] Asuncion Aparicio MD LAB - SEROLOGY ORDER CRUZITO Performing Organization Address City/State/[facility] Co de Phone Number [facility] [address] [place] [address] * HEMOGLOBIN ELECTROPHORESIS (12/08/2019 7:03 AM CDT) Hemoglobin A1 98.3 97.1 - 99.1 % 12/12/2019 10:19 AM CDT [facility] Hemoglobin F 0.0 0.0 - 2.0 % 12/12/2019 10:19 AM CDT [facility] Hemoglobin S 0.0 <=0.0 % 12/12/2019 10:19 AM CDT [facility] Hemoglobin C 0.0 <=0.0 % 12/12/2019 10:19 AM CDT [facility] Hemoglobin A2 1.7 0.9 - 2.9 % 12/12/2019 10:19 AM CDT [facility] Hemoglobin E 0.0 % 12/12/2019 10:19 AM CDT [facility] Interpretation Normal Interpretation 12/12/2019 10:19 AM CDT [facility] Blood BLOOD SPECIMEN / Unknown Lab Venipuncture / Unknown 12/08/2019 7:03 AM CDT 12/08/2019 7:48 AM CDT Pattie Castellon MD LAB - CHEMISTRY RIGOBERTO DOSS Performing Organization Address [facility] Co de Phone Number [facility] [address] [place] [phone] * HEPATITIS B SURFACE ANTIGEN W RFLX CONFIRMATION (12/08/2019 7:03 AM CDT) Pathologist [facility] HBsAg Non Reactive Non Reactive 12/08/2019 10:59 AM CDT [facility] Blood BLOOD SPECIMEN / Unknown Lab Venipuncture / Unknown 12/08/2019 7:03 AM CDT 12/08/2019 8:17 AM CDT Asuncion Aparicio MD LAB - CHEMISTRY MIRI GO Performing Organization Address [facility] Co de Phone Number [facility] [address] [place] [phone] * (ABNORMAL) FOLATE (12/08/2019 7:03 AM CDT) Pathologist [facility] Folate 6.8(L) 7.0 - 31.4 ng/mL 12/08/2019 11:02 AM CDT [facility] Blood BLOOD SPECIMEN / Unknown Lab Venipuncture / Unknown 12/08/2019 7:03 AM CDT 12/08/2019 7:48 AM CDT Christiano Pino MD LAB - CHEMISTRY MIRI GO Performing Organization Address [facility] Co de Phone Number [facility] [address] [place] [phone] * (ABNORMAL) IRON + TRANSFERRIN PANEL (12/08/2019 7:03 AM CDT) Iron 15(L) 50 - 170 ug/dL 12/08/2019 8:11 AM CDT [facility] Transferrin 472(H) 180 - 382 mg/dL 12/08/2019 8:11 AM CDT [facility] TIBC Calculated 590(H) 240 - 450 ug/ml 12/08/2019 8:11 AM CDT [facility] Iron Saturation % 3(L) 20 - 50 % 12/08/2019 8:11 AM CDT [facility] Blood BLOOD SPECIMEN / Unknown Lab Venipuncture / Unknown 12/08/2019 7:03 AM CDT 12/08/2019 7:48 AM CDT Pattie Castellon MD LAB - CHEMISTRY ORD ERABLES Performing Organization Address City/[facility]/ZIP Co de Phone Number [facility] [address] [place], [place] [phone] * (ABNORMAL) FERRITIN (12/08/2019 7:03 AM CDT) Ferritin 2(L) 5 - 204 ng/mL 12/08/2019 8:31 AM CDT [facility] Blood BLOOD SPECIMEN / Unknown Lab Venipuncture / Unknown 12/08/2019 7:03 AM CDT 12/08/2019 7:48 AM CDT Pattie Castellon MD LAB - CHEMISTRY ORD ERABLES Performing Organization Address City/[facility]/ZIP Co de Phone Number [facility] [address] [place], [place] [phone] Care Teams Pump Tender Relationship Specialty Start Date End Date Alejandro Blevins MD [address] [place] [phone] PCP - General Family Medicine 12/07/19
--- OUTSIDE RECORDS SUMMARY | 2024-07-11 09:44 | XMS_ITS ---
Author Organization Unknown Address [address] [place] [phone] Phone Care Team Providers Care Epic Trainer Name Role Phone ZULLY Anaya Attending Unavailable [...] Cole Rae M.D. MZ: MZ Report ID: [id number] Reading Location: [place] [address] Social History Type Status Start Date End Date Code Code Syst em Smoking History Never smoker (Never Smoked) [id number] SNOMED CT Sex Female Hospital Discharge Instructions [...]
--- OUTSIDE RECORDS SUMMARY | 2024-07-11 09:45 | XMS_ITS | Encounter Summary ---
Author Organization [facility] Address [address] [place] [address] Care Team Providers Care Mammography Supervisor Name Role Phone Alejandro Blevins MD Primary Care Provider [phone]- [phone] Reason for Visit * Reason Onset Date Comments Results 02/11/2021 Encounter Details Date Type Department Care Team (Late st Contact Info) Description 02/11/[address] [facility] MATERNAL/ EVALUATION UNIT [address] [place] [address] Yodit Yoon MD [address] [facility] [address] [place] [address] Results Social History Tobacco Use Types Packs/Day [...] on filedocumented in this encounter Care Teams Mammography Supervisor Relationship Specialty Start Date End Date Alejandro Blevins MD [address] [place] [phone] PCP - General Family Medicine 12/07/19 documented as of this encounter
--- OUTSIDE RECORDS SUMMARY | 2024-07-11 09:45 | XMS_ITS | Encounter Summary ---
Author Organization [facility] Address [address] [place] [address] Care Team Providers Care Pin Game Machine Inspector Name Role Phone Alejandro Blevins MD Primary Care Provider [phone] Encounter Details Date Type Department Care Team [...] on filedocumented in this encounter Care Teams Pin Game Machine Inspector Relationship Specialty Start Date End Date Alejandro Blevins MD [address] [place] [address] PCP - General Family Medicine 12/07/19 documented as of this encounter
--- OUTSIDE RECORDS SUMMARY | 2024-07-11 09:45 | XMS_ITS | Encounter Summary ---
Author Organization [facility] Address [address] [place] [address] Care Team Providers Care Prosthodontist/Educator Name Role Phone Alejandro Blevins MD Primary Care Provider [phone]- [phone] Reason for Visit * Reason Onset Date Comments Results 02/25/2021 Encounter Details Date Type Department Care Team (Late st Contact Info) Description 02/25/2021 Telephone [facility] PHYS OB [address] [place], [place] [phone] Yodit Yoon MD [address] [address] Results Social History Tobacco Use Types Packs/Day [...] on filedocumented in this encounter Care Teams Prosthodontist/Educator Relationship Specialty Start Date End Date Alejandro Blevins MD [address] [place] [phone] PCP - General Family Medicine 12/07/19 documented as of this encounter
--- OUTSIDE RECORDS SUMMARY | 2024-07-11 09:45 | XMS_ITS | Encounter Summary ---
Author Organization [facility] Address [address] [place] [address] Care Team Providers Care Envelope Stamping Machine Operator Name Role Phone Alejandro Blevins MD Primary Care Provider [phone]- [phone] Encounter Details Date Type Department Care Team [...] on filedocumented in this encounter Care Teams Envelope Stamping Machine Operator Relationship Specialty Start Date End Date Alejandro Blevins MD [address] [place] [phone] PCP - General Family Medicine 12/07/19 documented as of this encounter
--- OUTSIDE RECORDS SUMMARY | 2024-07-11 09:45 | XMS_ITS | Encounter Summary ---
Author Organization [facility] Address [address] [place] [address] Care Team Providers Care Loft Worker Apprentice Name Role Phone Alejandro Blevins MD Primary Care Provider [phone]- [phone] Reason for Visit * Reason Onset Date Comments Reminder Call 06/24/2020 Encounter Details Date Type Department Care Team (Late st Contact Info) Description 06/24/2020 Telephone [facility] MATERNAL/ EVALUATION UNIT [address] [facility] [place] [address] Gillian Orozco, RN Reminder Call Social History [...] COVID-19? No / Unsure 06/02/2020 8:22 AM BRAKE OPERATOR SHEET METAL documented as of this encounter Functional Status [...] Miscellaneous Notes * Telephone Encounter - Gillian rOozco RN - 06/24/2020 11:13 AM CST Patient [...] appointmet. Hillary Smalls voiced understanding and agreement. E OPERATOR SHEET METAL documented in this encounter Plan of Treatment Not on file documented as of this encounter Visit Diagnoses Not on filedocumented in this encounter Care Teams Loft Worker Apprentice Relationship Specialty Start Date End Date Alejandro Blevins MD [address] [place] [phone] PCP - General Family Medicine 12/07/19 documented as of this encounter
--- OUTSIDE RECORDS SUMMARY | 2024-07-11 09:45 | XMS_ITS | Encounter Summary ---
Author Organization [facility] Address [address] [place] [address] Care Team Providers Care Utility System Repairer Name Role Phone Alejandro Blevins MD Primary Care Provider +1- [phone] Reason for Visit * Reason Comments Colposcopy LEEP Encounter Details Date Type Department Care Team (Latest Contact Info) Description 02/18/2021 11:15 AM CDT - 02/18/2021 11:59 PM CDT Hospital Encounter [facility] MATERNAL/ EVALUATION UNIT [address] [facility]. [address] [place] [address] Adrienne Roth MD [address] [facility] [address] [place] [address] Discharge Disposition: Home or Self [...] 02/18/2021 12:29 PM CDT Gynecology Clinic Phone: [phone] AFTER CARE INSTRUCTIONS: LEEP After the procedure, [...] cannot reach your doctors there, call the piercing machine operator at [place] and ask for the CURING ROOM WORKER resident polymerization kettle operator. documented in this encounter Medications at Time [...] results of her LEEP. Pt contact info: [phone] ATTENDING I was present and personally performed [...] Case Report Surgical Pathology Report ? Case: [id number] ? Authorizing Provider: ??Adrienne Roth MD ?Collected: ? 02/18/2021 01:41 PM ? Ordering Location: ? [facility] MATERNAL/ ?Received: ?02/18/2021 02:48 PM ? EVALUATION UNIT ? Pathologist: ? Dyan Simpson MD ? Specimens: ?? A) - Cervix Conization, Central LEEP ? B) - Cervix Conization, Anterior LEEP ? C) - Endocervix Curettings, ECC ? 02/20/2021 6:[address] [facility] Final Diagnosis Uterus, cervix, central, LEEP conization (A): - High-grade squamous intraepithelial lesion (HSIL); all margins negative for HSIL Uterus, cervix, anterior lip, LEEP conization (B): - No pathologic diagnosis (ectocervix only) Uterus, endocervix, curettage (C): - Mucin with very scant benign endocervical cells (see description) 02/20/2021 6:34 PM [facility] Clinical History The patient is a 30-year-old woman who presented for definitive treatment of HSIL seen on cervical biopsy. 02/20/2021 6:34 PM [facility] Gross Description The requisition and specimens [...] specimen B cervix BX consists of a pink-jean-baptsite fragment of soft tissue 1.5 x 0.8 x 0.5 cm. The shiny, smooth pink-jean-baptiste ectocervix measures 1.5 x 0.4 cm. The surgical resection margin is inked black. The specimen is serially sectioned and entirely submitted in cassette B1 and B2. Received in formalin, specimen C endocrvx police liaison officer consists of a white-jean-baptiste brush with minimally attached mucoid, brown-jean-baptiste soft tissue measuring 0.5 x 0.5 by less than 0.1 cm submitted in toto in cassette C1. AR 02/20/2021 6:34 PM [facility] Microscopic Description Microscopic examination substantiates the [...] is no intact epithelium. 02/20/2021 6:34 PM [facility] Disclaimer All histochemical and/or immunohistochemical results are interpreted with controls that demonstrate appropriate staining reactions before reporting results. Note on use of immunocytochemistry reagents: This test was developed and its performance characteristic determined by [facility], Department of Laboratory Medicine. It has not [...] be interpreted with caution. 02/20/2021 6:34 PM [facility] Embedded Images 02/20/2021 6:34 PM [facility] Pathology/Cytology SPECIMEN FROM LESION OF UTERINE [...] - PATHOLOGY/CY TOLOGY ORDERABLES Performing Organization Address City/[facility]/ZIP Co de Phone Number [facility] [address] [place] [address] * HCG URINE QUALITATIVE - POCT (IP) INTERFACED (02/18/2021 11:48 AM CDT) HCG Qual Urine Negative Negative 02/18/2021 11:[address] [facility] Urine URINE / Unknown 02/18/2021 1 1:48 AM CDT 02/18/2021 11:53 AM CDT Adrienne Roth MD LAB - POINT OF CAR E ORDERABLES Performing Organization Address City/[facility] Co de Phone Number [facility] [address] [place] [address] documented in this encounter Visit Diagnoses Diagnosis [...] rvix documented in this encounter Care Teams Utility System Repairer Relationship Specialty Start Date End Date Alejandro Blevins MD [address] [place] [phone] PCP - General Family Medicine 12/07/19 documented as of this encounter
--- OUTSIDE RECORDS SUMMARY | 2024-07-11 09:45 | XMS_ITS | Encounter Summary ---
Author Organization [facility] Address [address] [facility] [place] [address] Care Team Providers Care Restaurant Hostess Name Role Phone Alejandro Blevins MD Primary Care Provider +1- [phone] Reason for Visit * Reason Comments Colposcopy Encounter Details Date Type Department Care Team (Latest Contact Info) Description 02/04/2021 9:45 AM CDT - 02/04/2021 11:59 PM CDT Hospital Encounter [facility] MATERNAL/ EVALUATION UNIT [address] [facility]. [address] [place] [address] Adrienne Roth MD [address] [facility] [address] [place] [address] Discharge Disposition: Home or Self [...] 02/04/2021 10:40 AM CDT Gynecology Clinic Phone: [phone] AFTER CARE INSTRUCTIONS: COLPOSCOPY After the procedure, [...] cannot reach your doctors there, call the fax machine operator at [place] and ask for the MANAGER OF COMPLIANCE resident drilling field professional. documented in this encounter Medications at Time [...] currently, plan for IUD placement by primary MANAGER OF COMPLIANCE Dr. Valdivia (Vitor Peterson) Referring MD: DAMION [...] results to formulate plan. Pt contact info: [phone] Yodit Yoon MD 02/03/2021 10:51 PM ATTENDING [...] Case Report Surgical Pathology Report ? Case: [id number] ? Authorizing Provider: ??Adrienne Roth MD ?Collected: ? 02/04/2021 02:19 PM ? Ordering Location: ? [facility]/ ?Received: ?02/04/2021 02:59 PM ? EVALUATION UNIT ? Pathologist: ? Phuong Hernadez, ? Specimens: ?? A) - Cervix, 6 o'clock ? B) - Cervix, 12 o'clock ? C) - Endocervix Curettings, ECC ? 02/05/2021 2:56 PM CDT [facility] Final Diagnosis Uterus, cervix, 6 o'clock, biopsy (A) - High-grade squamous intraepithelial lesion (HSIL, CIN3) Uterus, cervix, 12 o'clock, biopsy (B) - High-grade squamous intraepithelial lesion (HSIL, CIN3) Uterus, endocervix, curettage (C) - Scant, detached fragments of high-grade squamous intraepithelial lesion (HSIL) - Fragments of unremarkable endocervical epithelium 02/05/2021 2:56 PM [facility] Clinical History The patient is a 30-year-old woman with atypical squamous cells - cannot rule out high-grade squamous intraepithelial lesion and positive high-risk HPV on pap test. Operative procedure/findings: colposcopy with biopsies and endocervical curettage; mild aceto-white changes with low-grade changes as well as high-grade changes of anterior cervix and 6 o'clock position. 02/05/2021 2:56 PM [facility] Gross Description The requisition and specimen [...] in cassette C1. LJ 02/05/2021 2:56 PM [facility] Microscopic Description Microscopic examination substantiates the final diagnosis. 02/05/2021 2:56 PM [facility] Disclaimer All histochemical and/or immunohistochemical results are interpreted with controls that demonstrate appropriate staining reactions before reporting results. Note on use of immunocytochemistry reagents: This test was developed and its performance characteristic determined by [facility], Department of Laboratory Medicine. It has not [...] interpreted with caution. 02/05/2021 2:56 PM CDT [facility] Embedded Images 02/05/2021 2:56 PM CDT [facility] Pathology/Cytology PART OF UTERINE CERVIX / Unknown Collection / Unknown 02/04/2021 2:19 PM CDT 02/04/2021 2:59 PM CDT Miscellaneous samples (specimen) PART OF UTERINE CERVIX / Unknown 02/04/2021 2:19 PM CDT 02/04/2021 2:59 PM CDT Miscellaneous samples (specimen) CURETTINGS / Unknown 02/04/2021 2:19 PM CDT 02/04/2021 2:59 PM CDT Adrienne Roth MD LAB - PATHOLOGY/CY TOLOGY ORDERABLES [facility] [address] [place], [place] [id number] * HCG URINE QUALITATIVE - POCT (IP) INTERFACED (02/04/2021 10:01 AM CDT) HCG Qual Urine Negative Negative 02/04/2021 10:07 AM CDT [facility] Urine URINE / Unknown 02/04/2021 1 0:01 AM CDT 02/04/2021 10:07 AM CDT Adrienne Roth MD LAB - POINT OF CAR E ORDERABLES [facility] [address] [place] [address] documented in this encounter Visit Diagnoses Diagnosis [...] (ASC-H) documented in this encounter Care Teams Restaurant Hostess Relationship Specialty Start Date End Date Alejandro Blevins MD [address] [place] [address] PCP - General Family Medicine 12/07/19 documented as of this encounter
--- OUTSIDE RECORDS SUMMARY | 2024-07-11 09:45 | XMS_ITS | Encounter Summary ---
Author Organization [facility] Address [address] [facility] [place] [address] Care Team Providers Care Scheduling Clerk Name Role Phone Alejandro Blevins MD Primary Care Provider +1- [phone] Reason for Visit * Reason Onset Date Comments Scheduling 02/11/2021 Encounter Details Date Type Department Care Team (Late st Contact Info) Description 02/11/2021 Telephone [facility] MATERNAL/ EVALUATION UNIT [address] [place] [address]. [address] [place] [address] Rosario Jasso Scheduling Social History Tobacco Use [...] on filedocumented in this encounter Care Teams Scheduling Clerk Relationship Specialty Start Date End Date Alejandro Blevins MD [address] [place] [phone] PCP - General Family Medicine 12/07/19 documented as of this encounter
--- OUTSIDE RECORDS SUMMARY | 2024-07-11 09:45 | XMS_ITS | Encounter Summary ---
Author Organization [facility] Address [address] [facility] [facility] [place] [address] Care Team Providers Care Manager Of Sales Name Role Phone Alejandro Blevins MD Primary Care Provider +1 [phone] Reason for Visit * Reason Onset Date Comments Returned Call 02/10/2021 Encounter Details Date Type Department Care Team (Late st Contact Info) Description 02/10/2021 Telephone [facility] MATERNAL/ EVALUATION UNIT [facility] [facility]. [address] [place] [address] Chen Taylor, RN Returned Call Social History [...] filedocumented in this encounter Care Teams Manager Of Sales Relationship Specialty Start Date End Date Alejandro Blevins MD [address] [place] [phone] PCP - General Family Medicine 12/07/19 documented as of this encounter
--- OUTSIDE RECORDS SUMMARY | 2024-07-11 09:45 | XMS_ITS | Encounter Summary ---
Author Organization [facility] Address [address] [address] Care Team Providers Care Sales And Service Change Leader Name Role Phone Alejandro Blevins MD Primary Care Provider +1- [phone] Reason for Visit * Reason Onset Date Comments Results 02/11/2021 Encounter Details Date Type Department Care Team (Late st Contact Info) Description 02/11/2021 Telephone [facility] MATERNAL/ EVALUATION UNIT [address] [place] [address]. [address] [place] [address] Chen Taylor, RN Results Social History Tobacco [...] filedocumented in this encounter Care Teams Sales And Service Change Leader Relationship Specialty Start Date End Date Alejandro Blevins MD [address] [place] [phone] PCP - General Family Medicine 12/07/19 documented as of this encounter
--- OUTSIDE RECORDS SUMMARY | 2024-07-11 09:45 | XMS_ITS | Encounter Summary ---
Author Organization [facility] Address [address] [facility] [place] [address] Care Team Providers Care Land Leasing Information Clerk Name Role Phone Alejandro Blevins MD Primary Care Provider +1- [phone] Encounter Details Date Type Department Care Team (Late st Contact Info) Description 01/15/2021 Orders Only [facility] MATERNAL/ EVALUATION UNIT [address] [facility]. [address] [place] [address] Fozia Arreola MD [address] [facility] [address] [place] [address] Social History Tobacco Use Types Packs/Day Years [...] on filedocumented in this encounter Care Teams Land Leasing Information Clerk Relationship Specialty Start Date End Date Alejandro Blevins MD [address] [place] [phone] PCP - General Family Medicine 12/07/19 documented as of this encounter
--- OUTSIDE RECORDS SUMMARY | 2024-07-11 09:45 | XMS_ITS | Encounter Summary ---
Author Organization [facility] Address [address] [place] [address] Care Team Providers Care Barrel Rifler Hook Name Role Phone Alejandro Blevins MD Primary Care Provider +1- [phone] Encounter Details Date Type Department Care Team [...] on filedocumented in this encounter Care Teams Barrel Rifler Hook Relationship Specialty Start Date End Date Alejandro Blevins MD [address] [place] [phone] PCP - General Family Medicine 12/07/19 documented as of this encounter
--- OUTSIDE RECORDS SUMMARY | 2024-07-11 09:45 | XMS_ITS | Encounter Summary ---
Author Organization [facility] Address [address] [facility] [place] [address] Care Team Providers Care Orthodontist Assistant Name Role Phone Alejandro Blevins MD Primary Care Provider +1 [phone] Encounter Details Date Type Department Care Team [...] on filedocumented in this encounter Care Teams Orthodontist Assistant Relationship Specialty Start Date End Date Alejandro Blevins MD [address] [place] [address] PCP - General Family Medicine 12/07/19 documented as of this encounter
--- OUTSIDE RECORDS SUMMARY | 2024-07-11 09:45 | XMS_ITS | Encounter Summary ---
Author Organization [facility] Address [address] [place] [address] Care Team Providers Care Clinical Informatics Spec Name Role Phone Alejandro Blevins MD Primary Care Provider +1- [phone] Reason for Visit * Reason Comments Urology Physician Exam Encounter Details Date Type Department Care Team (Latest Contact Info) Description 01/14/2021 8:29 AM CDT - 01/14/2021 11:59 PM CDT Hospital Encounter [facility] MATERNAL/ EVALUATION UNIT [address] [facility]. [address] [place] [address] Ino Soares MD [address] [facility] [address] [place] [address] Discharge Disposition: Home or Self Care Social [...] MD - 01/14/2021 9:07 AM CDT PGY3 ENVIRONMENTAL PROTECTION INSPECTOR Visit CC: here to discuss IUD S: Hillary Smalls is a 30 year old who presents today with no complaints. Wants to get an IUD. Previously had Mirena in 2007 with no side effects. She does have a long history of abnormal pap smears most recently ASC-H with + HPV. 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 Patient reports pap @ [facility], with suspected cervical cancer. No follow-up. 2. [...] - insurance does not cover IUD [facility] e-prescribed PNVs until starts BC - schedule appointment on her menses for IUD placement - declined bridging control ASC-H pap - colpo NANCY D/w Dr. Rodger Bwoman MD 01/14/2021 9:27 AM Attending Note I [...] on filedocumented in this encounter Care Teams Clinical Informatics Spec Relationship Specialty Start Date End Date Alejandro Blevins MD [address] [place] [phone] PCP - General Family Medicine 12/07/19 documented as of this encounter
--- OUTSIDE RECORDS SUMMARY | 2024-07-11 09:45 | XMS_ITS | Encounter Summary ---
Author Organization [facility] Address [address] [place] [address] Care Team Providers Care Senior Asset Manager Name Role Phone Alejandro Blevins MD Primary Care Provider +1- [phone] Reason for Visit * Reason Onset Date Comments Results 02/10/2021 Encounter Details Date Type Department Care Team (Late st Contact Info) Description 02/10/2021 Telephone [facility] MATERNAL/ EVALUATION UNIT [address] [place] [address]. [address] [place] [address] Chen Taylor, RN Results Social History Tobacco [...] message at this time. Drs. Diaz & Cra notified via [employer] secure chat of pt request to discuss her results. ----- Message from Cindy Lugo sent at 02/10/2021 11:38 AM CDT ----- Asking if her results are back from her biopsy. [phone] documented in this encounter Plan of Treatment Not on file documented as of this encounter Visit Diagnoses Not on filedocumented in this encounter Care Teams Senior Asset Manager Relationship Specialty Start Date End Date Alejandro Blevins MD [address] [place] [phone] PCP - General Family Medicine 12/07/19 documented as of this encounter
--- OUTSIDE RECORDS SUMMARY | 2024-07-11 09:45 | XMS_ITS | Encounter Summary ---
Author Organization [facility] Address [address] [facility] [place] [facility] [place] [address] Care Team Providers Care City Mail Carrier Name Role Phone Alejandro Blevins MD Primary Care Provider +1- [phone] Reason for Visit * Reason Onset Date Comments Scheduling 06/24/2020 Encounter Details Date Type Department Care Team (Late st Contact Info) Description 06/24/2020 Telephone [facility] MATERNAL/ EVALUATION UNIT [facility]. [address] [place] [address] Rosario Jasso Scheduling Social History Tobacco Use [...] COVID-19? No / Unsure 06/02/2020 8:22 AM SALESPERSON SHOES documented as of this encounter Functional Status [...] aware of our visitor policy andmask requirement. SPERSON SHOES documented in this encounter Plan of Treatment Not on file documented as of this encounter Visit Diagnoses Not on filedocumented in this encounter Care Teams City Mail Carrier Relationship Specialty Start Date End Date Alejandro Blevins MD [address] [place] [phone] PCP - General Family Medicine 12/07/19 documented as of this encounter
--- OUTSIDE RECORDS SUMMARY | 2024-07-11 09:45 | XMS_ITS | Encounter Summary ---
Author Organization [facility] Address [address] [facility] [place] [address] Care Team Providers Care Rn Gastroenterology Name Role Phone Alejandro Blevins MD Primary Care Provider +1 [phone] Encounter Details Date Type Department Care Team [...] filedocumented in this encounter Care Teams Rn Gastroenterology Relationship Specialty Start Date End Date Alejandro Blevins MD [address] [place] [address] PCP - General Family Medicine 12/07/19 documented as of this encounter
--- OUTSIDE RECORDS SUMMARY | 2024-07-11 09:45 | XMS_ITS | Encounter Summary ---
Author Organization [facility] Address [address] [facility] [place] [address] Care Team Providers Care Belt Sander Name Role Phone Alejandro Blevins MD Primary Care Provider +1- [phone] Reason for Visit * Reason Onset Date Comments Appointment 07/23/2020 Encounter Details Date Type Department Care Team (Late st Contact Info) Description 07/23/2020 Telephone [facility] MATERNAL/ EVALUATION UNIT [facility]. [address] [place] [address] Vivienne Quach Appointment Social History Tobacco Use [...] good andwill call to reschedule her appointment. TEMPERER documented in this encounter Plan of Treatment Not on file documented as of this encounter Visit Diagnoses Not on filedocumented in this encounter Care Teams Belt Sander Relationship Specialty Start Date End Date Alejandro Blevins MD [address] [place] [phone] PCP - General Family Medicine 12/07/19 documented as of this encounter
--- OUTSIDE RECORDS SUMMARY | 2024-07-11 09:45 | XMS_ITS | Encounter Summary ---
Author Organization [facility] Address [address] [facility] [place] [address] Care Team Providers Care Affiliate Marketing Manager Name Role Phone Alejandro Blevins MD Primary Care Provider +1- [phone] Reason for Visit * Reason Onset Date Comments Scheduling 02/26/2021 Encounter Details Date Type Department Care Team (Late st Contact Info) Description 02/26/2021 Telephone [facility] MATERNAL/ EVALUATION UNIT [facility]. [address] [place] [address] Tiffanie Whitney Scheduling Social History Tobacco Use [...] on filedocumented in this encounter Care Teams Affiliate Marketing Manager Relationship Specialty Start Date End Date Alejandro Blevins MD [address] [place] [phone] PCP - General Family Medicine 12/07/19 documented as of this encounter
--- OUTSIDE RECORDS SUMMARY | 2024-07-11 09:45 | XMS_ITS | Encounter Summary ---
Author Organization [facility] Address [address] [facility] [place] [address] Care Team Providers Care Retail Store Manager Name Role Phone Alejandro Blevins MD Primary Care Provider +1- [phone] Reason for Visit * Reason Onset Date Comments Patient Requested Call 02/17/2021 Encounter Details Date Type Department Care Team (Late st Contact Info) Description 02/17/2021 Telephone [facility] [address] [place] [address] Yodit Yoon MD [address] [address] Patient Requested Call Social History Tobacco Use [...] on filedocumented in this encounter Care Teams Retail Store Manager Relationship Specialty Start Date End Date Alejandro Blevins MD [address] [place] [address] PCP - General Family Medicine 12/07/19 documented as of this encounter
--- OUTSIDE RECORDS SUMMARY | 2024-07-11 09:45 | XMS_ITS | Encounter Summary ---
Author Organization [facility] Address [address] [facility] [place] [address] Care Team Providers Care Review Specialist Name Role Phone Aeljandro Blevins MD Primary Care Provider +1- [phone] Reason for Visit * Reason Comments Colposcopy Pap F/U Encounter Details Date Type Department Care Team (Latest Contact Info) Description 08/19/2021 10:15 AM SERVICE DELIVERY DIRECTOR - 08/19/2021 11:59 PM SERVICE DELIVERY DIRECTOR Hospital Encounter [facility] MATERNAL/ EVALUATION UNIT [address] [facility] [place] [address] Adrienne Roth MD [address] [facility] [address] [place] [address] Discharge Disposition: Home or Self [...] Comments Blood Pressure 108/71 08/19/2021 11:05 AM SERVICE DELIVERY DIRECTOR Pulse 74 08/19/2021 11:05 AM SERVICE DELIVERY DIRECTOR Temperature - - Respiratory Rate - - [...] follow up Pap today. No colposcopy performed. ICE DELIVERY DIRECTOR * Adrienne Roth MD - 08/19/2021 11:08 [...] the assessment and plan. Adrienne Roth MD ICE DELIVERY DIRECTOR documented in this encounter Plan of Treatment Not on file documented as of this encounter Procedures Procedure Name Priority Date/Time Associated Diagnosis Comments PAP IG LB+HPV APTIMA Routine 08/19/2021 11:34 AM SERVICE DELIVERY DIRECTOR High grade squamous intraepithelial lesion (HGSIL), grade 3 WIL, on biopsy of cervix documented in this encounter Results * PAP IG LB+HPV APTIMA (08/19/2021 11:34 AM SERVICE DELIVERY DIRECTOR) Diagnosis Comment 08/22/2021 7:09 AM SERVICE DELIVERY DIRECTOR [facility] ([facility]) Comment:NEGATIVE FOR INTRAEP ITHELIAL LESION OR MALIGNANCY. Specimen Adequacy Comment 022 7:09 AM SERVICE DELIVERY DIRECTOR [facility] ([facility]) Comment: Satisfactory for evaluation. ??Endocervical and/or squamous metaplastic cells (endocervical component) are present. Performed by Comment 08/22/2021 7:09 AM SERVICE DELIVERY DIRECTOR [facility] ([facility]) Comment:Nella Montes, Application Development Liaison (ASCP) Comment . 08/22/2021 7:09 AM SERVICE DELIVERY DIRECTOR [facility] ([facility]) Note Comment 08/22/2021 7:09 AM SERVICE DELIVERY DIRECTOR [facility] ([facility]) Comment: The Pap smear is a screening test designed to aid in the detection of premalignant and malignant conditions of the uterine cervix. ??It is not a diagnostic procedure and should not be used as the sole means of detecting cervical cancer. ??Both false-positive and false-negative reports do occur. IGLBP CPT Code Automation Comment 08/22/2021 7:09 AM SERVICE DELIVERY DIRECTOR [facility] ([facility]) Comment: This liquid based ThinPrep(R) pap test was screened with the use of an image guided system. Human papillomavirus Aptima Negative Negative 08/22/2021 7:09 AM SERVICE DELIVERY DIRECTOR [facility] ([facility]) Comment: This nucleic acid amplification test detects fourteen high-risk HPV types (16,18,31,33,35,39,45,51,52,56,58,59,66,68) without differentiation. Pathology/Cytolo gy ENTIRE ENDOCERVIX / Unknown Collection / Unknown 08/19/2021 11:34 AM SERVICE DELIVERY DIRECTOR 08/19/2021 12:41 PM SERVICE DELIVERY DIRECTOR Narrative [facility] ([facility]) - 08/22/2021 7:09 AM SERVICE DELIVERY DIRECTOR Performed at: ??01 - [address] [place] ??[id number] Prepress Supervisor: Stephanie Lemus MD, Phone: ??[phone] Performed at: ??02 - [facility], [place] ??[id number] Prepress Supervisor: Stephanie Lemus MD, Phone: ??[phone] Specimen Comment: No. 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
--- OUTSIDE RECORDS SUMMARY | 2024-07-11 09:45 | XMS_ITS | Encounter Summary ---
Author Organization [facility] Address [address] [facility] [place] [address] Care Team Providers Care Financial Specialist Name Role Phone Alejandro Blevins MD Primary Care Provider +1- [phone] Reason for Visit * Reason Onset Date Comments Pre Appointment Management 07/22/2020 Encounter Details Date Type Department Care Team (Late st Contact Info) Description 07/22/2020 Telephone [facility] MATERNAL/ EVALUATION UNIT [address] [place] [address]. [address] [place] [address] Shayna Thomas RN Pre Appointment Management Social [...] Shayna Thomas RN - 07/22/2020 11:33 AM BAIT MAKER Patient updated on COVID-19 visitor policy: NO [...] appointmet. Hillary Smalls voiced understanding and agreement. MAKER documented in this encounter Plan of Treatment Not on file documented as of this encounter Visit Diagnoses Not on filedocumented in this encounter Care Teams Financial Specialist Relationship Specialty Start Date End Date Alejandro Blevins MD [address] [place] [phone] PCP - General Family Medicine 12/07/19 documented as of this encounter
--- OUTSIDE RECORDS SUMMARY | 2024-07-11 09:46 | XMS_ITS | Encounter Summary ---
Author Organization [facility] Address [address] [place] [address] Care Team Providers Care Rehab Nurse Name Role Phone Alejandro Blevins MD Primary Care Provider +1 [phone] Encounter Details Date Type Department Care Team [...] COVID-19? No / Unsure 06/02/2020 8:22 AM CAT SWAMPER documented as of this encounter Functional Status [...] on filedocumented in this encounter Care Teams Rehab Nurse Relationship Specialty Start Date End Date Alejandro Blevins MD [address] [place] [phone] PCP - General Family Medicine 12/07/19 documented as of this encounter
--- OUTSIDE RECORDS SUMMARY | 2024-07-11 09:46 | XMS_ITS | Encounter Summary ---
Author Organization [facility] Address [address] [place] [address] Care Team Providers Care Patrol Man Name Role Phone Alejandro Blevins MD Primary Care Provider +1 [phone] Encounter Details Date Type Department Care Team [...] on filedocumented in this encounter Care Teams Patrol Man Relationship Specialty Start Date End Date Alejandro Blevins MD [address] [place] [address] PCP - General Family Medicine 12/07/19 documented as of this encounter
--- OUTSIDE RECORDS SUMMARY | 2024-07-11 09:46 | XMS_ITS | Encounter Summary ---
Author Organization [facility] Address [address] [place] [address] Care Team Providers Care Stone Carver Name Role Phone Alejandro Blevins MD Primary Care Provider +1 [phone] Encounter Details Date Type Department Care Team [...] on filedocumented in this encounter Care Teams Stone Carver Relationship Specialty Start Date End Date Alejandro Blevins MD [address] [place] [phone] PCP - General Family Medicine 12/07/19 documented as of this encounter
--- OUTSIDE RECORDS SUMMARY | 2024-07-11 09:46 | XMS_ITS | Encounter Summary ---
Author Organization [facility] Address [address] [address] Care Team Providers Care Cushion Worker Name Role Phone Alejandro Blevins MD Primary Care Provider +1- [phone] Reason for Visit * Reason Comments Follow-up 04/18-boy/girl-c/s- 5 lbs 130z x2- BTL Encounter Details Date Type Department Care Team (Latest Contact Info) Description 05/12/2020 9:56 AM CDT - 05/12/2020 11:59 PM CDT Hospital Encounter [facility] MATERNAL/ EVALUATION UNIT [address] [facility]. [address] [place] [address] Phuong Frazier MD [address] [place] [address] Discharge Disposition: Home or Self Care Social [...] Lazo RN - 05/12/2020 10:00 AM CDT [employer] form completed. Diapers given. 05/12/2020 [...] Bae 1. Patient reports last pap @ [facility], with suspected cervical cancer. No follow-up. 2. [...] 1. Referred to GI 2. Quant 12/08/19 [id number] 3. 9 AST 34/ALT 29 7. Preeclampsia [...] year old female at 36w1d with the resident/WASTE TREATMENT OPERATOR/Fellow. We have discussed her past history and reviewed all pertinent records and recent clinical course. 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 Desires BTL. No primary BAG MAKING MACHINE TENDER to f/u with. I have evaluated and [...] Diagnosis Comment(A) 05/19/2020 12:08 PM CDT [facility] ([facility]) Comment: EPITHELIAL CELL ABNORMALITY. ATYPICAL SQUAMOUS CELLS, CANNOT EXCLUDE HIGH-GRADE SQUAMOUS INTRAEPITHELIAL LESION (ASC-H). Recommendation Comment(A) 05/19/2020 12:08 PM CDT [facility] ([facility]) Comment:Suggest colposcopy a nd biopsy if indicated. Specimen Adequacy Comment 020 12:08 PM CDT [facility] ([facility]) Comment: Satisfactory for evaluation. ??Endocervical and/or squamous metaplastic cells (endocervical component) are present. Performed by Comment 05/19/2020 12:08 PM CDT [facility] ([facility]) Comment:Kate Turner, Cyto technologist (ASCP) Electronically Signed by Comment 05/19/2020 12:08 PM CDT [facility] ([facility]) Comment:Cyndee Howard MD, Pa thologist Comment . 05/19/2020 12:08 PM CDT [facility] ([facility]) Pathologist Provided ICD10 Comment 05/19/2020 12:08 PM CDT [facility] ([facility]) Comment:R87.611 Note Comment 05/19/2020 12:08 PM CDT [facility] ([facility]) Comment: The Pap smear is a screening test designed to aid in the detection of premalignant and malignant conditions of the uterine cervix. ??It is not a diagnostic procedure and should not be used as the sole means of detecting cervical cancer. ??Both false-positive and false-negative reports do occur. Human papillomavirus High Risk Positive(A ) Negative 05/19/2020 12:08 PM CDT [facility] ([facility]) Comment: This nucleic acid amplification high-risk HPV test detects thirteen high-risk types (16,18,31,33,35,39,45,51,52,56,58,59,68) without differentiation. Pathology/Cytolo gy PART OF UTERINE CERVIX / Unknown Collection / Unknown 05/12/2020 12:08 PM CDT 05/12/2020 12:22 PM CDT Narrative [facility] ([facility]) - 05/19/2020 12:08 PM CDT Performed at: ??01 - [facility] [address] ??[id number] Software Engineer Mobile: Stephanie Lemus MD, Phone: ??[phone] Performed at: ??02 - [facility] [address] ??[id number] Software Engineer Mobile: Stephanie Lemus MD, Phone: ??[phone] Specimen Comment: Source.............Cervix;Endocervix Specimen Comment: No. of containers..01 ThinPrep Vial Tuan Platt MD LAB - PATHOLOGY/CYTO LOGY ORDERABLES [facility] ([facility]) [address] [place] [address] * HCG URINE QUALITATIVE - POINT OF CARE (05/12/2020 10:33 AM CDT) HCG Qual Urine Negative Negative [facility] POCT TESTING QC Verified Yes Yes [facility] POC T TESTING Urine URINE / Unknown 05/12/2020 1 0:33 AM CDT Lola Olson MD LAB - POINT OF CA RE ORDERABLES Performing Organization Address City/[facility] Co de Phone Number [facility] POCT TESTING [address] [place] [address] * GLUCOSE PROTEIN KETONE URINE - POINT [...] OF CA RE ORDERABLES Performing Organization Address [facility] Co de Phone Number [facility] POCT TESTING [address] [place] [address] documented in this encounter Visit Diagnoses Diagnosis follow-up (HCC)- Primary Routine follow-up documented in this encounter Care Teams Cushion Worker Relationship Specialty Start Date End Date Alejandro Blevins MD [address] [place] [phone] PCP - General Family Medicine 12/07/19 documented as of this encounter
--- OUTSIDE RECORDS SUMMARY | 2024-07-11 09:46 | XMS_ITS | Encounter Summary ---
Author Organization [facility] Address [address] [facility] [place] [address] Care Team Providers Care Camera Machinist Name Role Phone Alejandro Blevins MD Primary Care Provider +1- [phone] Reason for Visit * Reason Comments Care 04/18/20; C/S; boy,gi rl; bottle Encounter Details Date Type Department Care Team (Latest Contact Info) Description 05/01/2020 8:20 AM CDT - 05/01/2020 11:59 PM CDT Hospital Encounter [facility] MATERNAL/ EVALUATION UNIT [facility] [address] [address] Mitzy Ignacio, GEM STONE CUTTER-TISSUE REWINDER [address] [place] [address] Discharge Disposition: Home or Self Care Social [...] this encounter Progress Notes * Mitzy Ignacio, GEM STONE CUTTER-TISSUE REWINDER - 05/01/2020 8:20 AM CDT ETHAN Post [...] or RUQ pain. She reports that she hasn'tused meth Or any other substance since before her delivery. She is agreeable to checking her blood pressures at home. She is being followed by hematology and is getting repeat labs with them tomorrow. She notes that her cosmetology educator wanted approval from us if she could [...] 1. Patient reports last pap @ [facility], with suspected cervical cancer. No follow-up. [...] 51 4. Given letter to give to cosmetology educator that okays steroids for low platelets 4. Polysubstance abuse 1. History of Vicodin, Heroin, and Methamphetamine use in the past 2. Reports last use prior to delivery 3. Reports continued tobacco use without desire for cessation 4. S/P Social Work consult while inpatient, twins are in custody of paternal uncle 6. Hepatitis C 1. Referred to GI, order placed today 2. Quant 12/08/19 [id number] 3. 9 AST 34/ALT 29 7. Preeclampsia [...] check on [facility] resident schedule Mitzy Ignacio APRN-TISSUE REWINDER 05/01/2020 11:[address] Mota * Letty Villanueva RN - 05/01/2020 8:20 AM CDT BP cuff order form completed and faxed to [facility]. Fax receipt received. Pt provided with BP cuff. * Marbella Valdovinos - 05/01/2020 8:20 AM CDT I have received a referral for this patient for GI. I have completed the form for [facility], the office of Dr. Lavon Alcantara will contact the patient. The referral form has been completed and the information requested has been faxed to [phone] documented in this encounter Plan of Treatment Not on file documented as of this encounter Visit Diagnoses Diagnosis Acute hepatitis C virus infection without hepatic coma- Primary Encounter for routine follow-up (HCC) Routine follow-up documented in this encounter Care Teams Camera Machinist Relationship Specialty Start Date End Date Alejandro Blevins MD [address] [place] [phone] PCP - General Family Medicine 12/07/19 documented as of this encounter
--- OUTSIDE RECORDS SUMMARY | 2024-07-11 09:46 | XMS_ITS | Encounter Summary ---
Author Organization [facility] Address [address] [place] [address] Care Team Providers Care Tail Worker Name Role Phone Alejandro Blevins MD Primary Care Provider +1- [phone] Reason for Visit * Reason Onset Date Comments Scheduling 05/19/2020 Encounter Details Date Type Department Care Team (Late st Contact Info) Description 05/19/2020 Telephone [facility] MATERNAL/ EVALUATION UNIT [facility] [facility]. [address] [place] [address] Rosario Jasso Scheduling Social History Tobacco Use [...] on filedocumented in this encounter Care Teams Tail Worker Relationship Specialty Start Date End Date Alejandro Blevins MD [address] [place] [phone] PCP - General Family Medicine 12/07/19 documented as of this encounter
--- OUTSIDE RECORDS SUMMARY | 2024-07-11 09:46 | XMS_ITS | Encounter Summary ---
Author Organization [facility] Address [address] [facility] [place] [address] Care Team Providers Care Java Sql Developer Name Role Phone Alejandro Blevins MD Primary Care Provider +1- [phone] Reason for Visit * Reason Comments Care Encounter Details Date Type Department Care Team (Late st Contact Info) Description 06/02/2020 8:15 AM CREDENTIALING ASSISTANT - 06/02/2020 11:59 PM CREDENTIALING ASSISTANT Hospital Encounter [facility] MATERNAL/ EVALUATION UNIT [address] [facility]. [address] [place] [address] Derrick Swanson MD [address] [facility] [address] [place] [address] Discharge Disposition: Home or Self Care Social [...] COVID-19? No / Unsure 06/02/2020 8:22 AM CREDENTIALING ASSISTANT documented as of this encounter Last Filed Vital Signs Vital Sign Reading Time Taken Comments Blood Pressure 120/80 06/02/2020 8:43 AM CREDENTIALING ASSISTANT Pulse 77 06/02/2020 8:43 AM CREDENTIALING ASSISTANT Temperature 36.2 ??C (97.2 ??F) 06/02/2020 8:43 AM CS T Respiratory Rate - - Oxygen Saturation - - Inhaled Oxygen Concentration - - Weight 59.9 kg (132 lb) 06/02/2020 8:43 AM CREDENTIALING ASSISTANT Height - - Body Mass Index 23.38 [...] Paul RN - 06/02/2020 8:54 AM CST [employer] form completed. Diapers given. 06/02/2020 ENTIALING ASSISTANT documented in this encounter Plan of Treatment Not on file documented as of this encounter Visit Diagnoses Not on filedocumented in this encounter Care Teams Java Sql Developer Relationship Specialty Start Date End Date Alejandro Blevins MD [address] [place] [phone] PCP - General Family Medicine 12/07/19 documented as of this encounter
--- OUTSIDE RECORDS SUMMARY | 2024-07-11 09:46 | XMS_ITS | Encounter Summary ---
Author Organization [facility] Address [address] [facility] [place] [address] Care Team Providers Care Otr Hazmat Company Driver Name Role Phone Alejandro Blevins MD Primary Care Provider +1 [phone] Reason for Visit * Reason Onset Date Comments Results 05/19/2020 Encounter Details Date Type Department Care Team (Late st Contact Info) Description 05/19/2020 Telephone [facility] MATERNAL/ EVALUATION UNIT [address] [facility]. [address] [place] [address] Tuan Platt MD [address] [place] [address] Results Social History Tobacco Use Types Packs/Day [...] on filedocumented in this encounter Care Teams Otr Hazmat Company Driver Relationship Specialty Start Date End Date Alejandro Blevins MD [address] [place] [phone] PCP - General Family Medicine 12/07/19 documented as of this encounter
--- OUTSIDE RECORDS SUMMARY | 2024-07-11 09:47 | XMS_ITS | Encounter Summary ---
Author Organization [facility] Address [address] [facility] [place] [address] Care Team Providers Care Sharepoint Consultant Name Role Phone Alejandro Blevins MD Primary Care Provider [phone]- [phone] Reason for Visit * Auth/Cert Specialty Diagnoses / Procedures Referred By Scarlet guzman Referred To Contact Referral ID Status Reason Start Date Expiration Date Visits Re quested Visits Authorized [id number] 1 1 Encounter Details Date Type Department Care Team (Late st Contact Info) Description 04/18/2020 2:48 AM CDT Anesthesia Event [facility] [address] [place], [place] [id number] Chris Solorio MD [address] [place] [id number] Ying Ro APRN-KEVAN [address] [place] [id number] Anesthesia Record Procedure Summary Procedure Name Responsible [...] Improvement Section (otherwise blank): * Ying Ro APRN-INSIDE WIRER - 04/18/2020 3:06 AM CDT ANESTHESIA PREOPERATIVE [...] this encounter Procedure Notes * Ying Ro APRN-INSIDE WIRER - 04/18/2020 3:04 AM CDTAssociated Order(s): ETT Placement Endotracheal Tube Placement: Patient Location: OB. Intubation Event Date/Time: 04/18/2020 2:51 AM Procedure: intubation ([id number]). Procedure Section: Sedation: under general anesthesia. Indications [...] -- Dispensed PO 3 TIMES DAILY 04/17/20230004/17/202329 laleuwemia-jlnjbogwjtqzb-wokltwia (FIORICET) 50-325-40 MG tablet 1 tablet 04/17 [...] Event Date/Time: ??04/18/2020 2:51 AM Procedure: intubation (77576). Procedure Section: ?? Sedation: under general anesthesia. [...] Staff Section ?? Anesthesia Provider: Ying Ro, FIBER PRODUCT CUTTING MACHINE OPERATOR-INSIDE WIRER, Performed the procedure Provider #1: Chris Solorio [...] mg documented in this encounter Care Teams Sharepoint Consultant Relationship Specialty Start Date End Date Alejandro Blevins MD [address] [place] [address] PCP - General Family Medicine 12/07/19 documented as of this encounter
--- OUTSIDE RECORDS SUMMARY | 2024-07-11 09:47 | XMS_ITS | Encounter Summary ---
Author Organization [facility] Address [address] [place] [address] Care Team Providers Care Associate Buyer Name Role Phone Alejandro Blevins MD Primary Care Provider [phone] Reason for Visit * Reason Comments Vaginal Bleeding * Auth/Cert Specialty Diagnoses / Procedures Referred By Contac t Referred To Contact Referral ID Status Reason Start Date Expiration Date Visits Re quested Visits Authorized [id number] 1 1 Encounter Details Date Type Department Care Team (Latest Contact Info) Description 04/17/2020 8:00 PM CDT - 04/23/2020 3:40 PM CDT Hospital Encounter [facility] 6W MOTHER/BABY [address] [place] [address] Phuong Frazier MD [address] [place] [id number] [employer]AYER Discharge Disposition: Home or Self Care Social [...] were sent to pharmacy for her to cutting and splicing supervisor. Patient knows to call and schedule 1 week and 6 week follow up visit. Aware to schedule appointment with hematology also. No further concerns. * Shira Gracia MD - 04/22/2020 3:40 PM CDT chicken stuffer Discharge Summary 05/05/2020, 8:59 AM Date of [...] nearest hospital and then was transfered to [facility]. Patient has continued to have some vaginal bleeding, but it is much less. Feels some mild contractions.She has not been seen in [facility] in several months due to transportation [...] Information for the patient's : Socorro Smalls [[id number]] Date of 04/18/2020 Time of : 2:53 AM Sex: Female Weight: 2640 g (5 lb 13.1 oz) (1 min): 6 (5 min): 7 (10 min): 8 Information for the patient's : Santiago Smalls [[id number]] Date of 04/18/2020 Time of : 2:54 [...] Comments Your discharge diagnosis is: delivery delivered [[id number]] No special diet needed Resume your normal home diet as tolerated. Eat well-balanced meals that include foods from all of the food groups. Drink plenty of fluids It is important that you stay well hydrated. You should drink at least eight to ten 8-ounce glassesof water per day. Nothing per vagina For 6 weeks Light activity While on narcotics (Percocet or [place]) Do not drive Until able to slam on the brakes comfortably and completely off narcotic pain medication (Percocet or [place]) No heavy lifting Do not lift anything [...] itching Take Benadryl for relief of itching. Vchx-ymj-dnpsrvh medication Use an abdominal binder or belly band for comfort as needed and use compression stockings (available at pharmacies or online) for leg swelling. Shira Gracia MD 05/05/2020 8:59 AM documented in this encounter Discharge Instructions * Discharge Instructions* Mary Ann Koo - 04/23/2020 2:00 PM CDT Follow up with your Automobile Parker in 1 week after discharge DELIVERED MOTHER DISCHARGE INSTRUCTIONS Refer to the Booklet given during your stay for more information. Please contact your crime prevention police officer for the followin. Any burning or itching [...] example: your cell phone and cell phone director of quantitative research. PLEASE REMEMBER: 1. Always place your infant [...] to be indicated. JAYLYN Vallejo Office Ascom CONDUCTOR PACKAGES TESTER * Angela Hauser Amy - 04/23/2020 11:22 AM CDT Problem: Oral Intake: Inadequate oral intake Goal: Total intake will meet estimated nutrient needs Description: Estimated Needs: KCAL: 5060-0186(20-25 kcal/kg IBW) Protein (g): 60-100(1.2-2 gm/kg IBW) [...] chew tablet 160 mg, Oral, QDAY Tdap (aeocnfl-vcevavcblz-qjtin pertussis) (BOOSTRIX) (7y+) injection 0.5 mL, Intramuscular, [...] 7. Limited PNC 1. Limited visits with [facility] (2) secondary to transportation issues 2. [...] documentation and agreewith history and physical and aerial tram operator of my plan, and I had gjpm-ao-rwpt time with this patient. DC instructions given. [...] care. They recommend high dose steroids for watermaster effect of increased platelets. The rise in [...] 80 mg at 04/22/20 0843 ??? Tdap (nktzlgw-lozkorsxic-zumrp pertussis) (BOOSTRIX) (7y+) injection 0.5 mL 0.5 mL Intramuscular Immunization - Once Mayuri Norton MD Medications in SEP reviewed. Physical examination: [...] no rhonchi Cardiovascular: pulses equal, S1 and Y2uzuas, no S3, no S4, no rubs no [...] IVIG that patient received has transient response. shank archer gyn team is concerned about wound healing. Noted that the MFM/Ob team doesn't want to proceed with high dose steroids. Monitor platelet count Transfuse platelets if bleeding to maintain count greater than 50,000 Recommended outpatient follow-up with her store hand within one week of discharge UTI secondary [...] days. Stable hemodynamics. Continue oral iron, switch to oral B12, folic acid orally. ?? 3.?Chronic thrombocytopenia-??multifactorial from chronic untreated HCV infection, possible concomitant immune thrombocytopenia, severe B12 deficiency, folate deficiency, polysubstance abuse. ??S/p Solu-Medrol 1 g pulse dose??IV infusion daily x3 days, IVIG 1 gram/kg per day infusion as daily g4ehnam. Last dose of Solu-Medrol on 04/20/2020. Has had a good response with normalization ofher platelet count currently. However, responses to Solu-Medrol and IVIG may be transient. Recommend dexamethasone 40 mg orally daily x4 days with GI prophylaxis - order canceled by the CONFLICTS ANALYST team . ? No evidence of hemolysis [...] need to be monitored by her outpatient store hand on discharge. ?? 6.?Untreated HCV infection,??mildly deranged [...] agalactiae in urine culture-management as per the CONFLICTS ANALYST team. On Macrobid. ?? Discussed with the patient, mother and her significant other at the bedside. Anticipate discharge later today. I have asked her to follow-up with her local store hand upon discharge within 1 week to monitor [...] Precautions: Bed Mobility: Supine to Sit: Modified [place] Transfers: Sit to Stand: Complete [place] Stand to Sit: Complete [place] Mobility: Distance Ambulated: 300 FEET Ambulation: Assistive Device: None(refused gait belt) Ambulation: Level of Assistance: Complete [place] Ambulation: Gait Deviations: Antalgic Balance: Sitting - [...] discussed. SW reached out to Irlanda Lara ([phone]; fax [phone]; ) who indicated DCFS has taken custody [...] afternoon follow-up will be with GERALD Luo ([id number]) and GERALD explained a copy of a [...] ??? benzocaine-menthol (DERMOPLAST) spray Topical TID PRN Shyana Chirinos MD ??? calcium carbonate (TUMS) chew [...] 4 mg 4 mg Oral q6h PRN Mayuir Norton MD 4 mg at 04/20/20 2345 [...] 80 mg at 04/22/20 0843 ??? Tdap (yqtwboz-qiyftwipuj-rrjhx pertussis) (BOOSTRIX) (7y+) injection 0.5 mL 0.5 [...] she will not be compliant with medication. shank archer gyn team is concerned about wound healing. Noted that the MFM/Ob team doesn'twant to proceed with high dose steroids. Monitor platelet count Transfuse platelets if bleeding to maintain count greater than 50,000 Recommended outpatient follow-up with her local store hand Untreated UTI: Discussed with primary team ID [...] Monitor for vaginal bleeding as per the paediatrician team. Continue oral iron, parenteral B12, folic [...] estimated nutrient needs Description: Estimated Needs: KCAL: 4373-5100(20-25 kcal/kg IBW) Protein (g): 60-100(1.2-2 gm/kg IBW) [...] 7. Limited PNC 1. Limited visits with [facility] (2) secondary to transportation issues 2. [...] documentation and agreewith history and physical and aerial tram operator of my plan, and I had oqii-kx-ufbc time with this patient. Check labs. Possible [...] box [address], sinus rhythm per [email or web address] #[id number]. Rooming in and bonding noted. Newborns [...] baby nursery. Hillary to transfer up to [facility]. Bedside report given to Connie JENKINS from [facility] ascom- [phone]. Telemetry notified that Hillary is moving to [...] RN - 04/21/2020 7:57 AM CDT 04/21/20 075 Clinician Communication/Critical Test Notification Reason: Lab Results (calcium 6.9 this morning/can we d/c continuous pulse ox) Name of Clinician Notified: Dr. Gracia Role: OB Resident Notification Method: Called/Phoned ([id number]) Action Orders Received (can d/c continuous pulse [...] 7. Limited PNC 1. Limited visits with [facility] (2) secondary to transportation issues 2. [...] documentation and agreewith history and physical and aerial tram operator of my plan, and I had utmi-tx-kwof time with this patient. * Mayuri Norton MD - 04/21/2020 4:46 AM CDT PGY2 GOODS L[employer] Progress Note In to see patient. She [...] 8:51 AM Subjective: [facility] following extubation. Overall, doing well. [...] 6. Limited PNC 1. Limited visits with [facility] (2) secondary to transportation issues 2. [...] 04/19/2020 0600 Gross per 24 hour Intake 98002.95 ml Output 1980 ml Net 8171.95 ml [...] 6. Limited PNC 1. Limited visits with [facility] (2) secondary to transportation issues 2. [...] 04/17/2020 Hospital Day: 2 Attending: Dr. Brown Resident/Behavior Analyst: Drs. Crowe/ Jus Code Status: Full Code [...] 2/2 HCV, methamphetamine abuse who presented to [facility] at 38w0d with leakage of bloody fluid. Patient reported she got up to use the bathroom and noticed a gush of blood like Koolaid . Was lost to follow-up in [facility] for several months due to transportation and financial difficulties. That hospital did not have any ObGyn staff so she was transferred. During transport, nurses noticed blood clots passing and a continuous trickle of blood from the vagina, increased with contractions. Initial plan was to transfer the patient to [place], the nearest [facility], however, [facility] would not accept the patient and she was brought to [facility]. On admission to [facility] the patient was actively bleeding with [...] 04/19/2020 0600 Gross per 24 hour Intake 51444.95 ml Output 1980 ml Net 8171.95 ml [...] Brown MD - 04/19/2020 3:41 PM CDT [facility] Teaching attending note Date of service: [...] 2/2 HCV, methamphetamine abuse. who presented to [facility] at 38w0d with leakage of bloody fluid. Patient reported she got up to use the bathroom and noticed a gush of blood like Koolaid . During transport, nurses noticed blood clots passing and a continuous trickle of blood from the vagina, increased with contractions. Initial plan was to transfer the patient to [facility], the nearest hospital, however, [facility] would not accept the patient and she was brought to [facility]. On admission to [facility] the patient was actively bleeding with [...] Transportation at discharge: Family Transportation (who): TBD Heat And Frost Insulator/Support: Heat And Frost Insulator person: Home/Functional Status: Functional and Cognitive Status [...] For any questions or needs please contact: Yard Engineer Name/Phone number: Miladys Parker RN [phone] * Helena Fraser MD - 04/18/2020 3:03 [...] - 04/18/2020 11:01 AM CDT # 493 Controller Instructor was in the hallway near the elevator and saw patient's mother looking for the ICU. Patient's mother, Brittany, seemed anxious and distressed. Controller Instructor accompanied Brittany to the ICU hallway and alerted patient's RN of Brittany's presence. RN provided Brittany with a brief update. RN was given Brittany'snumber to call once doctors are free to provide an update on patient's condition. Brittany informed front end ui developer that patient delivered twins (boy and girl) earlier this morning. Rc Mariee, also present on the 6th floor. Patient has a pre- existing blood platelet issue. Per Brittany, patient does not know she delivered her babies. Patient also as a 10yo and 13 yo. Controller Instructor provided supportive presence and attentive listening to Brittany who was distressed throughout front end ui developer's time with her. Brittany wanted to return to the 6th floor to be with Rc and the babies in hopes of also getting some rest. Please call Brittany on her cell when doctors are available to provide an update. Pastoral Care remains available as needed/requested. Mariya Ray [facility] Pastoral Care pager - Call [phone] (Mon-Fri: 7AM - 9PM and Sat/Sun 7AM - 3PM). Pastoral Care school transportation supervisor pager - Call [phone] (outside of the times listed above) and enter a 10 digit call back number. Please allow the school transportation supervisor front end ui developer 30 minutes to arrive to the hospital. * Boy Gonzalez, PT - 04/18/2020 8:56 AM CDT Attempted to see patient for physical therapy. Per perforating machine operator, patient not appropriate for PT [...] Summary Patient Information Patient Name Hillary Smalls ([id number]) Sex Female OB History 3 Para 3 [...] A1: 6 A5: 7 Complications: Intolerance Location: [facility] Delivering Clinician: Marisa James MD 3B Outcome: Term Date: 04/18/20 GA: 38w1d Sex: M Delivery: Living: MARTHA Name: SERINABABY BOY 2 HILLARY Weight: 2640 g (5 lb 13.1 oz) Anes: General PTL: N A1: 5 A5: 8 Complications: Intolerance Location: 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 Events labor?: No steroids: None GBS Status: unknown Antibiotic: none Number of Antibiotic Doses: 0 Rupture Date: 04/18/20 Time: 252 Rupture type: Spontaneous, Ruptured, Patient Denies Leaking Fluid color: Bloody Fluid odor: Normal Odor Augmentation: Oxytocin Indications for augmentation: Ineffective Contraction Pattern Labor complications: Intolerance Howell Delivery Details Forceps attempted?: No Vacuum extractor attempted?: No Presentation: Delivery (Maternal) Placenta Date/time: 04/18/2020 025 Disposition: Lab Other Delivery Procedures/Provider Comments Delivery - Physician I was present at delivery (physician name): Counts [place] Instruments Lap Pads Sponges Initial counts Added [...] Apgars assigned by: ANNABELLA TOMPKINS DO Delivery Howell Stabilization Suction Method: Catheter Secretions (Amount in [...] Arterial Stem cell collection (by )?: No Howell Measurements Weight: 2640 g Pounds and Ounces: 5 lb 13.1 oz Length: 18.5 Head circumference: 12.6 Chest circumference: Disposition: Feeding and Elimination Mother's Feeding Choice During Stay ( Core Measure PC05): Voided in Delivery Room?: No Stooled in Delivery Room?: Yes Brock Smalls 2 [[id number]] Patient Information Patient Name Brock Smalls 2 ([id number]) Sex Male 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 Brown Resident/Behavior Analyst: Drs. Crowe/ Jus Code Status: Full Code Events since last progress note: Patient seen and examined at the bedside. Continues to bleed. Sim adjusted. 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 Patient reported she got up to use the bathroom and noticed a gush of blood like Koolaid . Was lost to follow-up in [facility] for several months due to transportation and financial difficulties. That hospital did not have any ObGyn staff so she was transferred. During transport, nurses noticed blood clots passing and a continuous trickle of blood from the vagina, increased with contractions. Initial plan was to transfer the patient to [place], the nearest [facility], however, [facility] would not accept the patient and she was brought to [facility]. On admission to [facility] the patient was actively bleeding with [...] Brown MD - 04/19/2020 3:39 PM CDT [facility] Teaching attending note Date of service: [...] 2/2 HCV, methamphetamine abuse. who presented to [facility] at 38w0d with leakage of bloody fluid. Patient reported she got up to use the bathroom and noticed a gush of blood like Koolaid . During transport, nurses noticed blood clots passing and a continuous trickle of blood from the vagina, increased with contractions. Initial plan was to transfer the patient to [place], the nearest [facility], however, [facility] would not accept the patient and she was brought to [facility]. On admission to [facility] the patient was actively bleeding with [...] James also at bedside. Rapid response and Consumer Loan Specialist Dr. Mallory was called and patient was [...] B 140bpm, mod variability, reactive, no decels Sena: q2-3mins Labs reviewed. Plt 30 > 2u platelets > 29. Plan to give an additional 2u of platelets. 2u still on hold. Spoke with Blood Bank who is planning to order more platelets from [facility] (takes ~1hr). Fibrinogen stable at 345, from [...] [facility]. [facility] here, she had [...] Mallory MD - 04/18/2020 8:02 PM CDT [facility] Teaching attending note Date of service: [...] decision making for assessment and support, direct kxqe-uj-heuz evaluation, personal review of the medical record [...] Date of Delivery: 05/01/20 care: is with [facility] (only 2 visits) Patient's is complicated by: [...] the nearest hospitaland then was transferred to [facility]. Patient has continued to have some vaginal bleeding, but it is much less. Feels some mild contractions. She has not been seen in [facility] in several months due to transportation [...] variability, reactives B 135bpm, mod variability, reactive Sena q2-4min No decels seen, but areas of [...] Negative Negative Ketone UA Negative Negative Specific [place] UA 1.015 1.005 - 1.030 Blood UA [...] POS Product Number R02 Unit Donor # [id number] Unit Status selected Product Code [id number] Blood Type Barcode 6199 Expiration Date [id number] Unit Description AS1 LR PRBC Unit ABO A Unit Rh POS Product Number R43 Unit Donor # [id number] Unit Status selected Product Code [id number] Blood Type Barcode 6199 Expiration Date [id number] PREPARE PLATELET PHERESIS UNIT(S), 2 Units Result Value Ref Range Unit Description LR PLT Pheresis Unit ABO A Unit Rh POS Product Number P02 Unit Donor # [id number] Unit Status selected Product Code [id number] Blood Type Barcode 6199 Expiration Date Unit Description LR PLT Pher IRR Unit ABO B Unit Rh POS Product Number P10 Unit Donor # [id number] Unit Status released Product Code [id number] Blood Type Barcode 73 Expiration Date Unit Description LR PLT Pheresis Unit ABO A Unit Rh POS Product Number P02 Unit Donor # [id number] Unit Status selected Product Code [id number] Blood Type Barcode 6199 Expiration Date [id number] BLOOD TYPE VERIFICATION Result Value Ref Range [...] and MARQUITA 4. Has been seen by [facility] in [place], Dr. Alex 5. Plt 30 on admission [...] C 1. 2/2 IVDU 2. Quant 12/08/19 [id number] 3. ALT/AST 4. Has followed with hepatology, [...] since then. Unable to see records in [facility]. 2. No abnormal cervical lesions palpated on [...] tablet 160 mg, Oral, QDAY ?? Tdap (huolnle-maxcxxthxo-sayap pertussis) (BOOSTRIX) (7y+) injection 0.5 mL, Intramuscular, [...] results for input(s): CDIFFTOXINAB in the last 31931 hours. No results for input(s): SEDRATE in the last 99288 hours. No results for input(s): CRP in the last 69473 hours. No results for input(s): CK in the last 00449 hours. .No results for input(s): VANCOTROUGH, VANCOPEAK, VANCSERIES in the last 78490 hours. Invalid input(s): HOOD Recent Labs Component [...] results for input(s): PROCALCITON in the last 00402 hours. Microbiology Radiology Assessment Presentation in hemorrhagic [...] review. Bee Kauffman MD * Chevy Genevieve, MAST MAKER - 04/21/2020 11:31 AM CDT GOODS LAYER CASE MANAGEMENT PSYCHOSOCIAL ASSESSMENT Reason for Referral: Chemical Dependency/ ETOH /Substance Abuse. Mother with hx of vicodin, meth and herorin use. [facility] drug screen- cords +methamphetamines, amphetamines, and butalbital GERALD placed DCFS referral on 04/18/20. DCFS worker is Irlanda Adams ([phone]; fax [phone]). GERALD has faxed UDS and cord results [...] None Cultural Barriers: None Ethnicity: Unavailable Lang: [place]HT[place] Patient's Address: Pt stated she resides at [address] [place] [address] Pt's phone number: [phone] Pt shared she does not currently have her cell ph in her room. Family Support (name and phone) Extended Emergency Contact Information Primary Emergency Contact: Pepin, Jade Address: [address] [place] [address] [place] Mobile Relation: Mother Gate Supervisor needed? No Alternative Group Activities Aide Family Strengths: Pt shared she has a [...] had completed substance use treatment while in group home years ago and was on substance medication [...] Support Line, Woman and 's Resource Guide, [place] psych supports. Employment: Pt shared she is not currently employed. Education: Pt shared she has completed 11th grade. Government assistance TANF (Temporary Assistance to Needy Families)- No Food [place]- Yes WIC- Yes SSI- No Insurance: Payor/Plan Subscriber Name Rel Member # Group # MEDICAID - PENDING - * BROCK SMALLS * SON [id number] [address] [address] Community Resources Utilized: DCFS is involved. Designated Radiologic Tech: Pt indicated she has identified a insurance sales executive. Referrals: Nurses for Newborns- [place] resident Child protection referral- GERALD placed DCFS referral on 04/18/20 DFS/DCFS-Name of worker: Irlanda Adams Phone number: [phone]; fax [phone] Does the family have the following basic discharge needs? Pt denied any resource needs at this time. Utilities- Yes Telephone- Yes Car seat- Yes Crib- Yes Baby clothing- Yes Mica Min[employer] Blasting/School: Pt shared she plans to stay home to care for the twins with the support of FOB and her mother. Transportation: Pt indicated she would get a ride home at time of d/c from a family member or FOB. Family planning: The pt and her GOODS LAYER have discussed family planning. Recommended discharge plan [...] h/o hepatitis C, anemia Estimated Needs: KCAL: 6132-6198(20-25 kcal/kg IBW) Protein (g): 60-100(1.2-2 gm/kg IBW) [...] JÚNIOR Pal, MS 04/18/2020 2:11 PM Ascom 0108 * Genevieve Reece MSW - 04/18/2020 2:08 PM CDTAssociated Order(s): IP CONSULT TO RAILWAY YARD ASSISTANT Social Service Consult -- Brief Reason for Referral: Mother with hx of vicodin, meth and herorin use. drug screen. Cords remain pending. Male/female twins [...] methamphetamine use. Cord results remain pending. Hotline child daycare worker is Otf Breaux . SW connected [...] vitamin B12, folic acid, venofer. Last BM PROCESS IMPROVEMENT ANALYST. Active bowel sounds noted. EMR indicates weight [...] Pain affecting intake: No Estimated Needs: KCAL: 9771-2887(20-25 kcal/kg IBW) Protein (g): 60-100(1.2-2 gm/kg IBW) [...] results for input(s): PREALBUMIN in the last 32448 hours. No results for input(s): PHOS, PHOSPHORUS in the last 49025 hours. Recent Labs Component Name 04/18/20 0537 [...] injection 40 mg, Intravenous, QDAY ?? [COMPLETED] vcccaafhji-warxwwudtyrla-gspimrwv (FIORICET) 50-325-40 MG tablet 1 tablet, Oral, [...] Intravenous, Continuous Skin/Wound: abdomen incision Last BM: PROCESS IMPROVEMENT ANALYST Nutrition Care Process (1) Nutrition Diagnostic Statement: [...] records. Chief complaint/ history of present illness: Hilalry Smalls is a 29 year old White/ [...] [facility] [place] Nov, 2019 at 19 weeks gestation with [...] follow-up with hepatology and her own local store hand . The patient is currently sedated and intubated and can offer no history. Chart notes indicate that she was being followed by her store hand, Dr. Alex in [place] and was receiving B12, folate and iron supplements and had seen a dust sampler, Dr. Jain, but had not initiated any therapy for her HCV infection.. She initially presented at [facility] ED and was transferred to [facility] [place] for a higher level of care. During [...] A Bakri balloon was placed by the CONFLICTS ANALYST service in the uterine fundus which showed [...] IV 265 mL IVPB 300 mg Intravenous Heraclio Huerta MD Stopped at 04/18/20 1155 ??? [...] intubated, unresponsive on ventilator Laboratory data: ANC [id number] ALC 1488 Recent Labs Component Name 04/18/20 [...] Negative 12/08/19 Hepatitis C Virus Quantitation IU/mL [id number] Hepatitis C Virus Log 10 log10 IU/mL 5.959 LA with DRVVT - negative Beta 2 glycoprotein antibody titers IgG/IgM-negative Cardiolipin antibody IgG/IgA-negative. IgM 37 (low to medium positive) Imaging data: Portable chest [id number]/IMPRESSION: The tip of the endotracheal tube may [...] B12 1000 mcg IM daily x7 days, [id number] mg IV infusion daily x3 days, folic acid 1 mg IV daily. 6. Untreated HCV infection, mildly deranged hepatic function-monitor LFTs. Will need to start therapy directed against HCV once stable 7. Polysubstance drug abuse, IV drug abuse-UDS positive for amphetamine. Monitor for withdrawal. Discussed with the ICU resident team, the patient's RN, and with Dr. Brown, perforating machine operator. Dr. Castillo, is covering our group over the weekend and will be available for any questions as needed. Dr Haider will cover my inpatient service on Tuesday04/21/2020 Heraclio Dave MD, FACP Hematology and Medical Oncology [facility] [address] [place] [address], [place] [address] Exchange: [phone] Please be advised that voice recognition software [...] patient's : Serina Baby Girl 1 Hillary [[id number]] Date of 04/18/2020 Time of : 2:53 AM Sex: Female Weight: 2640 g (5 lb 13.1 oz) (1 min): 6 (5 min): 7 (10 min): 8 Information for the patient's : Serina Baby Boy 2 Hillary [[id number]] Date of 04/18/2020 Time of : 2:54 [...] noted on uterine entry. A 2640 gram infant delivered from a vertex presentation with scores of 6 at one minute and 7 at five minutes and 8 at ten minutes. The cord was doubly clamped and cut. A 2640 gram delivered from a breech presentation with scores [...] - 04/18/2020 6:52 AM CDT Called for FINISHING AREA OPERATOR at 0446 for decreased BP. Unable to obtain sBP, OB staff at bedside. Immediate emergent transfer to MICU. Transfer to 493 at 0450. Consumer Loan Specialist at bedside. Intubated and lined per Dr. [...] IGG/IGM/IGA PANEL STAT 04/18/2020 9:30 AM CDT [id number] ANTIBODY STAT 04/18/2020 9:2 9 AM CDT REF LAB COMMENT Routine 04/18/2020 9:29 AM CDT [id number] ACTIVITY STAT 04/18/2020 9:2 9 AM CDT [...] - 105 mg/dL 04/23/2020 7:01 AM CDT [facility] Sodium 135(L) 136 - 145 mmol/L 04/23/2020 7:01 AM CDT [facility] Potassium 3.8 3.5 - 5.1 mmol/L 04/23/2020 7:01 AM CDT [facility] Chloride 102 98 - 107 mmol/L 04/23/2020 7:01 AM CDT [facility] CO2 25 23 - 31 mmol/L 04/23/2020 7:01 AM [facility] Calcium 7.6(L) 8.4 - 10.4 mg/dL 04/23/2020 7:01 AM [facility] Anion Gap 8 8 - 16 mmol/L 04/23/2020 7:01 AM [facility] BUN 14 7 - 18.7 mg/dL 04/23/2020 7:01 AM [facility] Creatinine 0.60 0.57 - 1.11 mg/dL 04/23/2020 7:01 AM [facility] Alkaline Phosphatase 112 40 - 150 U/L 04/23/2020 7:01 AM [facility] ALT 29 0 - 61 U/L 04/23/2020 7:01 AM [facility] AST 34 5 - 34 U/L 04/23/2020 7:01 AM [facility] Protein Total 5.7(L) 6.4 - 8.3 gm/dL 04/23/2020 7:01 AM [facility] Albumin 2.2(L) 3.5 - 5.2 gm/dL 04/23/2020 7:01 AM [facility] Bilirubin Total 0.5 0.2 - 1.0 mg/dL 04/23/2020 7:01 AM [facility] eGFR by MDRD >60 >60 mL/min/1.7 3m2 04/23/2020 7:01 AM [facility] eGFR by MDRD >60 >60 mL/min/1.7 3m2 04/23/2020 7:01 AM [facility] Blood BLOOD SPECIMEN / Unknown Lab Venipuncture / Unknown 04/23/2020 6:01 AM CDT 04/23/2020 6:30 AM T Shira Gracia MD LAB - CHEMISTRY ORD ERABLES [facility] [address] [place] [address] * (ABNORMAL) CBC W AUTO DIFFERENTIAL (04/23/2020 6:01 AM T) [facility] Signature WBC 15.8(H) 4.4 - 10.7 x10E9/L 04/23/2020 6:44 AM CDT [facility] WBC Corrected 04/23/2020 6:44 AM CDT [facility] RBC 2.97(L) 3.80 - 5.20 x10E12/L 04/23/2020 6:44 AM [facility] Hemoglobin 8.4(L) 12.0 - 15.6 gm/dL 04/23/2020 6[facility] Hematocrit 25.6(L) 35.9 - 45.5 % 04/23/2020 6:44 [facility] MCV 86.2 80.7 - 98.3 fl 04/23/2020 6:44 AM [facility] MCH 28.3 26.7 - 34.0 pg 04/23/2020 6:44 AM [facility] MCHC 32.8 30.8 - 35.9 gm/dL 04/23/2020 6:44 AM [facility] Platelet Count 272 153 - 416 x10E9/L 04/23/2020 6:44 AM [facility] RDW-CV 19.6(H) 12.1 - 14.9 % 04/23/2020 6:44 AM [facility] MPV 10.8 9.4 - 12.9 fl 04/23/2020 6:44 AM [facility] Neutrophils % 79.2(H) 44.0 - 73.0 % 04/23/2020 6:44 AM [facility] Lymphocytes % 11.4(L) 20.0 - 43.0 % 04/23/2020 6:44 AM [facility] Monocytes % 5.2 5.0 - 13.0 % 04/23/2020 6:44 AM [facility] Eosinophils % 0.1 0.0 - 6.0 % 04/23/2020 6:44 AM [facility] Basophils % 0.2 0.0 - 2.0 % 04/23/2020 6:44 AM [facility] Immature Granulocytes 3.9(H) 0 - 1 % 04/23/2020 6:44 AM [facility] Neutrophil Absolute 12.50(H) 2.01 - 7.14 x10E9/L 04/23/2020 6:44 AM [facility] Lymphocytes Absolute 1.80 1.07 - 3.94 x10E9/L 04/23/2020 6:44 AM CDT [facility] Monocytes Absolute 0.82 0.26 - 1.07 x10E9/L 04/23/2020 6:44 AM CDT [facility] Eosinophils Absolute 0.02 0 - 0.47 x10E9/L 04/23/2020 6:44 AM CDT [facility] Basophils Absolute 0.03 0 - 0.08 x10E9/L 04/23/2020 6:44 AM CDT [facility] Immature Granulocytes Absolute 0.62(H) 0.00 - 0.06 x10E9/L 04/23/2020 6:44 AM T [facility] nRBC Auto 4 /100 WBC 04/23/2020 6:44 AM [facility] Blood BLOOD SPECIMEN / Unknown Lab Venipuncture / Unknown 04/23/2020 6:01 AM CDT 04/23/2020 6:30 AM CDT Maikel Ring MD LAB - HEMATOLOGY ORDERABLES [facility] [address] [place] [address] * (ABNORMAL) COMPREHENSIVE METABOLIC PANEL (04/22/2020 9:28 AM CDT) Glucose 79 70 - 105 mg/dL 04/22/2020 10:09 AM [facility] Sodium 135(L) 136 - 145 mmol/L 04/22/2020 10:09 AM [facility] Potassium 3.3(L) 3.5 - 5.1 mmol/L 04/22/2020 10:09 AM [facility] Chloride 103 98 - 107 mmol/L 04/22/2020 10:09 [facility] CO2 27 23 - 31 mmol/L 04/22/2020 10:09 AM [facility] Calcium 7.1(L) 8.4 - 10.4 mg/dL 04/22/2020 10:09 AM [facility] Anion Gap 5(L) 8 - 16 mmol/L 04/22/2020 10:09 AM [facility] BUN 13 7 - 18.7 mg/dL 04/22/2020 10:09 AM CDT [facility] Creatinine 0.66 0.57 - 1.11 mg/dL 04/22/2020 10:09 AM CDT [facility] Alkaline Phosphatase 95 40 - 150 U/L 04/22/2020 10:09 AM CDT [facility] ALT 26 0 - 61 U/L 04/22/2020 10:09 AM CDT [facility] AST 32 5 - 34 U/L 04/22/2020 10:09 AM CDT [facility] Protein Total 5.1(L) 6.4 - 8.3 gm/dL 04/22/2020 10:09 AM CDT [facility] Albumin 2.0(L) 3.5 - 5.2 gm/dL 04/22/2020 10:09 AM CDT [facility] Bilirubin Total 0.5 0.2 - 1.0 mg/dL 04/22/2020 10:09 [address] [facility] eGFR by MDRD >60 >60 mL/min/1.7 3m2 04/22/2020 10:09 AM T [facility] eGFR by MDRD >60 >60 mL/min/1.7 3m2 04/22/2020 10:09 AM T [facility] Blood BLOOD SPECIMEN / Unknown Lab Venipuncture / Unknown 04/22/2020 9:28 AM CDT 04/22/2020 9:35 AM CDT Shira Gracia MD LAB - CHEMISTRY ORD ERABLES [facility] [address], [place] [id number] * (ABNORMAL) CBC W AUTO DIFFERENTIAL (04/22/2020 9:28 AM CDT) WBC 13.3(H) 4.4 - 10.7 x10E9/L 04/22/2020 10:01 AM CDT [facility] WBC Corrected 04/22/2020 10:01 AM CDT [facility] RBC 2.77(L) 3.80 - 5.20 x10E12/L 04/22/2020 10:01 AM CDT [facility] Hemoglobin 8.0(L) 12.0 - 15.6 gm/dL 04/22/2020 10:01 AM [facility] Hematocrit 24.6(L) 35.9 - 45.5 % 04/22/2020 10:01 AM [facility] MCV 88.8 80.7 - 98.3 fl 04/22/2020 10:01 AM [facility] MCH 28.9 26.7 - 34.0 pg 04/22/2020 10:01 AM [facility] MCHC 32.5 30.8 - 35.9 gm/dL 04/22/2020 10:01 AM [facility] Platelet Count 219 153 - 416 x10E9/L 04/22/2020 10:01 AM [facility] RDW-CV 19.5(H) 12.1 - 14.9 % 04/22/2020 10:01 AM [facility] MPV 10.8 9.4 - 12.9 fl 04/22/2020 10:01 AM [facility] Neutrophils % 77.8(H) 44.0 - 73.0 % 04/22/2020 10:01 AM [facility] Lymphocytes % 13.7(L) 20.0 - 43.0 % 04/22/2020 10:01 AM [facility] Monocytes % 5.2 5.0 - 13.0 % 04/22/2020 10:01 AM [facility] Eosinophils % 0.5 0.0 - 6.0 % 04/22/2020 10:01 AM [facility] Basophils % 0.2 0.0 - 2.0 % 04/22/2020 10:01 AM [facility] Immature Granulocytes 2.6(H) 0 - 1 % 04/22/2020 10:01 AM [facility] Neutrophil Absolute 10.35(H) 2.01 - 7.14 x10E9/L 04/22/2020 10:01 AM [facility] Lymphocytes Absolute 1.82 1.07 - 3.94 x10E9/L 04/22/2020 10:01 AM [facility] Monocytes Absolute 0.69 0.26 - 1.07 x10E9/L 04/22/2020 10:01 AM [facility] Eosinophils Absolute 0.07 0 - 0.47 x10E9/L 04/22/2020 10:01 AM [facility] Basophils Absolute 0.02 0 - 0.08 x10E9/L 04/22/2020 10:01 AM CDT [facility] Immature Granulocytes Absolute 0.35(H) 0.00 - 0.06 x10E9/L 04/22/2020 10:01 AM CDT [facility] nRBC Auto 3 /100 WBC 04/22/2020 10:01 AM CDT [facility] Blood BLOOD SPECIMEN / Unknown Lab Venipuncture / Unknown 04/22/2020 9:28 AM CDT 04/22/2020 9:35 AM CDT Maikel Ring MD LAB - HEMATOLOGY ORDERABLES Performing Organization Address City/[facility]/ZIP Co de Phone Number [facility] [address] [place] [address] * PREPARE FFP UNIT(S), 1 Units (04/21/2020 6:41 AM CDT) Unit Description Thawed Plasma 5D [facility] Unit ABO AB [facility] Unit Rh POS [facility] Product Number [id number] [facility] Unit Donor [facility] [id number] [facility] Unit Status transfused [facility] Product Code [id number] [facility] Blood Type Barcode 8400 [facility] Expiration Date [id number] [facility] Blood Bank BLOOD SPECIMEN / Unknown 04/21/2020 6:41 AM CDT 04/21/2020 6:48 AM CDT Marisa James MD LAB - BLOOD BANK ORD ERABLES Performing Organization Address City/[facility]/ZIP Co de Phone Number [facility] [address] [place], [place] [id number] [place] [address] * (ABNORMAL) COMPREHENSIVE METABOLIC PANEL (04/21/2020 6:41 AM CDT) Glucose 119(H) 70 - 105 mg/dL 04/21/2020 8:02 AM CDT [facility] Sodium 132(L) 136 - 145 mmol/L 04/21/2020 8:02 AM CDT [facility] Potassium 3.0(L) 3.5 - 5.1 mmol/L 04/21/2020 8:02 AM [facility] Chloride 100 98 - 107 mmol/L 04/21/2020 8:02 AM [facility] CO2 26 23 - 31 mmol/L 04/21/2020 8:02 AM [facility] Calcium 6.8(LL) 8.4 - 10.4 mg/dL 04/21/2020 8:02 AM [facility] Anion Gap 6(L) 8 - 16 mmol/L 04/21/2020 8:02 AM [facility] BUN 13 7 - 18.7 mg/dL 04/21/2020 8:02 AM [facility] Creatinine 0.63 0.57 - 1.11 mg/dL 04/21/2020 8:02 AM [facility] Alkaline Phosphatase 105 40 - 150 U/L 04/21/2020 8:02 AM [facility] ALT 23 0 - 61 U/L 04/21/2020 8:02 AM [facility] AST 28 5 - 34 U/L 04/21/2020 8:02 AM [facility] Protein Total 5.9(L) 6.4 - 8.3 gm/dL 04/21/2020 8:02 AM [facility] Albumin 2.1(L) 3.5 - 5.2 gm/dL 04/21/2020 8:02 AM [facility] Bilirubin Total 0.4 0.2 - 1.0 mg/dL 04/21/2020 8:02 AM [facility] eGFR by MDRD >60 >60 mL/min/1.7 3m2 04/21/2020 8:02 AM [facility] eGFR by MDRD >60 >60 mL/min/1.7 3m2 04/21/2020 8:02 AM [facility] Blood BLOOD SPECIMEN / Unknown Lab Venipuncture / Unknown 04/21/2020 6:41 AM CDT 04/21/2020 6:48 AM [facility] Shira Gracia MD LAB - CHEMISTRY ORD ERABLES [facility] [address] [place] [address] * (ABNORMAL) RENAL FUNCTION PANEL (04/21/2020 6:41 AM CDT) Glucose 118(H) 70 - 105 mg/dL 04/21/2020 7:46 AM CDT [facility] Sodium 133(L) 136 - 145 mmol/L 04/21/2020 7:46 AM CDT [facility] Potassium 3.0(L) 3.5 - 5.1 mmol/L 04/21/2020 7:46 AM CDT [facility] Chloride 101 98 - 107 mmol/L 04/21/2020 7:46 AM CDT [facility] CO2 26 23 - 31 mmol/L 04/21/2020 7:46 AM CDT [facility] Calcium 6.9(LL) 8.4 - 10.4 mg/dL 04/21/2020 7:46 AM CDT [facility] Anion Gap 6(L) 8 - 16 mmol/L 04/21/2020 7:46 AM CDT [facility] BUN 13 7 - 18.7 mg/dL 04/21/2020 7:46 AM CDT [facility] Creatinine 0.65 0.57 - 1.11 mg/dL 04/21/2020 7:46 AM CDT [facility] Albumin 2.1(L) 3.5 - 5.2 gm/dL 04/21/2020 7:46 AM CDT [facility] Phosphorus 3.6 2.3 - 4.7 mg/dL 04/21/2020 7:46 AM CDT [facility] eGFR by MDRD >60 >60 mL/min/1.7 3m2 04/21/2020 7:46 AM CDT [facility] eGFR by MDRD >60 >60 mL/min/1.7 3m2 04/21/2020 7:46 AM T [facility] Blood BLOOD SPECIMEN / Unknown Lab Venipuncture / Unknown 04/21/2020 6:41 AM CDT 04/21/2020 6:48 AM CDT Clem Brown MD LAB - CHEMISTRY MIRI GO [facility] Organization Address City/State/ZIP Co de Phone Number [facility] [address] [place] [address] * (ABNORMAL) MAGNESIUM BLOOD (04/21/2020 6:41 AM CDT) Magnesium 4.6(H) 1.6 - 2.6 mg/dL 04/21/2020 7:38 AM CDT [facility] Blood BLOOD SPECIMEN / Unknown Lab Venipuncture / Unknown 04/21/2020 6:41 AM CDT 04/21/2020 6:48 AM CDT Clem Brown MD LAB - CHEMISTRY MIRI GO Performing Organization Address City/[facility]/ZIP Co de Phone Number [facility] [address] [place] [address] * TYPE + SCREEN PANEL (04/21/2020 6:41 AM CDT) ABO Rh A POS 04/21/2020 7:44 AM CDT [facility] Comment:History checked. Antibody Screen NEG 0 7:44 AM CDT [facility] Blood Bank BLOOD SPECIMEN / Unknown Lab Venipuncture / Unknown 04/21/2020 6:41 AM CDT 04/21/2020 6:48 AM CDT Danilo Rodríguez MD LAB - BLOOD BANK RIGOBERTO DOSS Performing Organization Address [facility]/ZIP Co de Phone Number [facility] [address] [place] [address] * HAPTOGLOBIN (04/21/2020 6:41 AM CDT) Haptoglobin 42 30 - 200 mg/dL 04/21/2020 7:38 AM CDT [facility] Blood BLOOD SPECIMEN / Unknown Lab Venipuncture / Unknown 04/21/2020 6:41 AM CDT 04/21/2020 6:48 AM CDT Turner Castillo MD LAB - CHEMISTRY MIRI GO Performing Organization Address City/[facility]/ZIP Co de Phone Number [facility] [address] [place] [address] * (ABNORMAL) LDH BLOOD (04/21/2020 6:41 AM CDT) Pathologist [facility] LDH 449(H) 125 - 220 U/L 04/21/2020 7:38 AM CDT [facility] Blood BLOOD SPECIMEN / Unknown Lab Venipuncture / Unknown 04/21/2020 6:41 AM CDT 04/21/2020 6:48 AM CDT Turner Castillo MD LAB - CHEMISTRY MIRI GO [facility] [address] [place] [address] * (ABNORMAL) DIFFERENTIAL MANUAL (04/21/2020 4:45 AM CDT) [facility] WBC Auto 22.9 x10E9/L 04/21/2020 7:18 AM CDT [facility] WBC Corrected 04/21/2020 7:18 AM CDT [facility] nRBC 3 /100 WBC 04/21/2020 7:[facility] Neutrophil % Manual 89(H) 44 - 73 % 04/21/2020 7:18 AM CDT [facility] Lymphocytes % Manual 5(L) 20 - 43 % 04/21/2020 7:18 AM CDT [facility] Monocytes % Manual 3(L) 5 - 13 % 2019 7:18 AM CDT [facility] Band % Manual 2 0 - 11 % 04/21/2020 7:18 AM CDT [facility] [place] Manual 1(H) <=0 % 04/21/2020 7:18 [address] [facility] Cells Counted 100 # cells 04/21/2020 7:18 AM CDT [facility] WBC Morph Normal 04/21/2020 7:18 AM CDT [facility] Anisocytosis 2+(A) None 04/21/2020 7:18 AM CDT [facility] Polychromasia 1+(A) None 04/21/2020 7:18 AM CDT [facility] Platelet Estimation Normal 04/21/2020 7:18 AM CDT [facility] Blood BLOOD SPECIMEN / Unknown Lab Venipuncture / Unknown 04/21/2020 4:45 AM CDT 04/21/2020 5:51 AM CDT Maikel Ring MD LAB - HEMATOLOGY ORDERABLES Performing Organization Address City/[facility] de Phone Number [facility] [address], [place] [id number] * (ABNORMAL) CBC W AUTO DIFFERENTIAL (04/21/2020 4:45 AM CDT) WBC 22.9(H) 4.4 - 10.7 x10E9/L 04/21/2020 6:14 AM CDT [facility] WBC Corrected 04/21/2020 6:14 AM CDT [facility] RBC 3.02(L) 3.80 - 5.20 x10E12/L 04/21/2020 6:14 AM CDT [facility] Hemoglobin 8.6(L) 12.0 - 15.6 gm/dL 04/21/2020 6:14 AM CDT [facility] Hematocrit 26.0(L) 35.9 - 45.5 % 04/21/2020 6:14 AM CDT [facility] MCV 86.1 80.7 - 98.3 fl 04/21/2020 6:14 AM CDT [facility] MCH 28.5 26.7 - 34.0 pg 04/21/2020 6:14 AM CDT [facility] MCHC 33.1 30.8 - 35.9 gm/dL 04/21/2020 6:14 AM CDT [facility] Platelet Count 211 153 - 416 x10E9/L 04/21/2020 6:14 AM CDT [facility] RDW-CV 19.5(H) 12.1 - 14.9 % 04/21/2020 6:14 AM CDT [facility] MPV 12.0 9.4 - 12.9 fl 04/21/2020 6:14 AM CDT [facility] nRBC Auto 3 /100 WBC 04/21/2020 6:14 AM CDT [facility] Blood BLOOD SPECIMEN / Unknown Lab Venipuncture / Unknown 04/21/2020 4:45 AM CDT 04/21/2020 5:51 AM CDT Maikel Ring MD LAB - HEMATOLOGY ORDERABLES Performing Organization Address City/State/[facility] de Phone Number [facility] [address] [place] [phone] * (ABNORMAL) DIFFERENTIAL MANUAL (04/20/2020 7:46 PM CDT) WBC Auto 21.9 x10E9/L 04/20/2020 9:10 PM CDT [facility] WBC Corrected 04/20/2020 9:10 PM CDT [facility] nRBC 5 /100 WBC 04/20/2020 9:10 PM CDT [facility] Neutrophil % Manual 97(H) 44 - 73 % 04/20/2020 9:10 PM CDT [facility] Lymphocytes % Manual 1(L) 20 - 43 % 04/20/2020 9:10 PM CDT [facility] Monocytes % Manual 1(L) 5 - 13 % 04/20/2020 9:10 PM CDT [facility] Band % Manual 1 0 - 11 % 04/20/2020 9:10 PM CDT [facility] Cells Counted 100 # cells 04/20/2020 9:10 PM CDT [facility] RBC Morphology Normal 04/20/2020 9:10 PM CDT [facility] WBC Morph Normal 04/20/2020 9:10 PM CDT [facility] Platelet Estimation Normal 04/20/2020 9:10 PM CDT [facility] Blood BLOOD SPECIMEN / Unknown Lab Venipuncture / Unknown 04/20/2020 7:46 PM CDT 04/20/2020 7:51 PM CDT Turner Castillo MD LAB - HEMATOLOGY ORD ERABLES Performing Organization Address [facility] Co de Phone Number [facility] [address] [place] [phone] * (ABNORMAL) CBC W AUTO DIFFERENTIAL (04/20/2020 7:46 PM CDT) WBC 21.9(H) 4.4 - 10.7 x10E9/L 04/20/2020 7:58 PM CDT [facility] WBC Corrected 04/20/2020 7:58 PM CDT [facility] RBC 2.93(L) 3.80 - 5.20 x10E12/L 04/20/2020 7:58 PM CDT [facility] Hemoglobin 8.2(L) 12.0 - 15.6 gm/dL 04/20/2020 7:58 PM CDT [facility] Hematocrit 24.5(L) 35.9 - 45.5 % 04/20/2020 7:58 PM CDT [facility] MCV 83.6 80.7 - 98.3 fl 04/20/2020 7:58 PM CDT [facility] MCH 28.0 26.7 - 34.0 pg 04/20/2020 7:58 PM CDT [facility] MCHC 33.5 30.8 - 35.9 gm/dL 04/20/2020 7:58 PM CDT [facility] Platelet Count 200 153 - 416 x10E9/L 04/20/2020 7:58 PM CDT [facility] RDW-CV 18.6(H) 12.1 - 14.9 % 04/20/2020 7:58 PM CDT [facility] MPV 11.1 9.4 - 12.9 fl 04/20/2020 7:58 PM CDT [facility] nRBC Auto 3 /100 WBC 04/20/2020 7:58 PM CDT [facility] Blood BLOOD SPECIMEN / Unknown Lab Venipuncture / Unknown 04/20/2020 7:46 PM CDT 04/20/2020 7:51 PM CDT Turner Castillo MD LAB - HEMATOLOGY ORD ERABLES Performing Organization Address City/State/[facility] Co de Phone Number [facility] [address] [place], [place] [id number] * XR CHEST 2VW (04/20/2020 5:11 PM [...] Magy Sunshine on 04/20/2020 at 5:21 PM Shiar Gracia MD DIAGNOSTIC IMAGING ORDERABLES * (ABNORMAL) [...] - 12.9 fl 04/20/2020 2:16 PM CDT [facility] Neutrophils % 87.7(H) 44.0 - 73.0 % 04/20/2020 2:16 PM CDT [facility] Lymphocytes % 4.8(L) 20.0 - 43.0 % 04/20/2020 2:16 PM CDT [facility] Monocytes % 3.0(L) 5.0 - 13.0 % 04/20/2020 2:16 PM CDT [facility] Eosinophils % 0.0 0.0 - 6.0 % 04/20/2020 2:16 PM CDT [facility] Basophils % 0.2 0.0 - 2.0 % 04/20/2020 2:16 PM CDT [facility] Immature Granulocytes 4.3(H) 0 - 1 % 04/20/2020 2:16 PM CDT [facility] Neutrophil Absolute 18.77(H) 2.01 - 7.14 x10E9/L 04/20/2020 2:16 PM CDT [facility] Lymphocytes Absolute 1.02(L) 1.07 - 3.94 x10E9/L 04/20/2020 2:16 PM CDT [facility] Monocytes Absolute 0.64 0.26 - 1.07 x10E9/L 04/20/2020 2:16 PM CDT [facility] Eosinophils Absolute 0.01 0 - 0.47 x10E9/L 04/20/2020 2:16 PM CDT [facility] Basophils Absolute 0.04 0 - 0.08 x10E9/L 04/20/2020 2:16 PM CDT [facility] Immature Granulocytes Absolute 0.92(H) 0.00 - 0.06 x10E9/L 04/20/2020 2:16 PM CDT [facility] nRBC Auto 3 /100 WBC 04/20/2020 2:16 PM CDT [facility] Blood BLOOD SPECIMEN / Unknown Lab Venipuncture / Unknown 04/20/2020 2:08 PM CDT 04/20/2020 2:12 PM CDT Turner Castillo MD LAB - HEMATOLOGY ORD ERABLES [facility] [address] [place] [address] * AST BLOOD (04/20/2020 10:42 AM CDT) AST 27 5 - 34 U/L 04/20/2020 2:26 PM CDT [facility] Blood BLOOD SPECIMEN / Unknown Lab Venipuncture / Unknown 04/20/2020 10:42 AM CDT 04/20/2020 10:42 AM CDT Ron Quinn MD LAB - CHEMISTRY MIRI GO Performing Organization Address City/[facility]/ZIP Co de Phone Number [facility] [address] [place] [address] * ALT (04/20/2020 10:42 AM CDT) ALT 19 0 - 61 U/L 04/20/2020 2:26 PM CDT [facility] Blood BLOOD SPECIMEN / Unknown Lab Venipuncture / Unknown 04/20/2020 10:42 AM CDT 04/20/2020 10:42 AM CDT Ron Quinn MD LAB - CHEMISTRY MIRI GO Performing Organization Address City/[facility]/ZIP Co de Phone Number [facility] [address] [place] [address] * (ABNORMAL) RENAL FUNCTION PANEL (04/20/2020 10:42 AM CDT) Glucose 103 70 - 105 mg/dL 04/20/2020 11:08 AM CDT [facility] Sodium 135(L) 136 - 145 mmol/L 04/20/2020 11:08 AM CDT [facility] Potassium 4.0 3.5 - 5.1 mmol/L 04/20/2020 11:08 AM CDT [facility] Chloride 108(H) 98 - 107 mmol/L 04/20/2020 11:08 AM CDT [facility] CO2 24 23 - 31 mmol/L 04/20/2020 11:08 AM CDT [facility] Calcium 7.4(L) 8.4 - 10.4 mg/dL 04/20/2020 11:08 AM CDT [facility] Anion Gap 3(L) 8 - 16 mmol/L 04/20/2020 11:08 AM CDT [facility] BUN 18 7 - 18.7 mg/dL 04/20/2020 11:08 AM CDT [facility] Creatinine 0.65 0.57 - 1.11 mg/dL 04/20/2020 11:08 AM CDT [facility] Albumin 1.9(L) 3.5 - 5.2 gm/dL 04/20/2020 11:08 AM CDT [facility] Phosphorus 3.0 2.3 - 4.7 mg/dL 04/20/2020 11:08 AM CDT [facility] eGFR by MDRD >60 >60 mL/min/1.7 3m2 04/20/2020 11:08 AM CDT [facility] eGFR by MDRD >60 >60 mL/min/1.7 3m2 04/20/2020 11:08 AM CDT [facility] Blood BLOOD SPECIMEN / Unknown Lab Venipuncture / Unknown 04/20/2020 10:42 AM CDT 04/20/2020 10:42 AM CDT Clem Brown MD LAB - CHEMISTRY MIRI GO Performing Organization Address City/[facility]/ZIP Co de Phone Number [facility] [address] [place], [place] [id number] * (ABNORMAL) MAGNESIUM BLOOD (04/20/2020 10:42 AM CDT) Magnesium 1.5(L) 1.6 - 2.6 mg/dL 04/20/2020 11:06 AM CDT [facility] Blood BLOOD SPECIMEN / Unknown Lab Venipuncture / Unknown 04/20/2020 10:42 AM CDT 04/20/2020 10:42 AM CDT Clem Brown MD LAB - CHEMISTRY MIRI GO [facility] [address] [place] [id number] * (ABNORMAL) CBC W AUTO DIFFERENTIAL (04/20/2020 10:42 AM CDT) WBC 22.0(H) 4.4 - 10.7 x10E9/L 04/20/2020 10:51 AM CDT [facility] WBC Corrected 04/20/2020 10:51 AM CDT [facility] RBC 2.67(L) 3.80 - 5.20 x10E12/L 04/20/2020 10:51 AM CDT [facility] Hemoglobin 7.5(L) 12.0 - 15.6 gm/dL 04/20/2020 10:51 AM CDT [facility] Hematocrit 22.5(L) 35.9 - 45.5 % 04/20/2020 10:51 AM CDT [facility] MCV 84.3 80.7 - 98.3 fl 04/20/2020 10:51 AM CDT [facility] MCH 28.1 26.7 - 34.0 pg 04/20/2020 10:51 AM CDT [facility] MCHC 33.3 30.8 - 35.9 gm/dL 04/20/2020 10:51 AM CDT [facility] Platelet Count 165 153 - 416 x10E9/L 04/20/2020 10:51 AM CDT [facility] RDW-CV 18.8(H) 12.1 - 14.9 % 04/20/2020 10:51 AM CDT [facility] MPV 12.1 9.4 - 12.9 fl 04/20/2020 10:51 AM CDT [facility] Neutrophils % 83.5(H) 44.0 - 73.0 % 04/20/2020 10:51 AM CDT [facility] Lymphocytes % 6.9(L) 20.0 - 43.0 % 04/20/2020 10:51 AM CDT [facility] Monocytes % 6.2 5.0 - 13.0 % 04/20/2020 10:51 AM CDT [facility] Eosinophils % 0.0 0.0 - 6.0 % 04/20/2020 10:51 AM CDT [facility] Basophils % 0.1 0.0 - 2.0 % 04/20/2020 10:51 AM CDT [facility] Immature Granulocytes 3.3(H) 0 - 1 % 04/20/2020 10:51 AM CDT [facility] Neutrophil Absolute 18.36(H) 2.01 - 7.14 x10E9/L 04/20/2020 10:51 AM CDT [facility] Lymphocytes Absolute 1.51 1.07 - 3.94 x10E9/L 04/20/2020 10:51 AM CDT [facility] Monocytes Absolute 1.36(H) 0.26 - 1.07 x10E9/L 04/20/2020 10:51 AM CDT [facility] Eosinophils Absolute 0.01 0 - 0.47 x10E9/L 04/20/2020 10:51 AM CDT [facility] Basophils Absolute 0.03 0 - 0.08 x10E9/L 04/20/2020 10:51 AM CDT [facility] Immature Granulocytes Absolute 0.72(H) 0.00 - 0.06 x10E9/L 04/20/2020 10:51 AM CDT [facility] nRBC Auto 2 /100 WBC 04/20/2020 10:51 AM CDT [facility] Blood BLOOD SPECIMEN / Unknown Lab Venipuncture / Unknown 04/20/2020 10:42 AM CDT 04/20/2020 10:41 AM CDT Maikel Ring MD LAB - HEMATOLOGY ORDERABLES [facility] [address] [place] [address] * HAPTOGLOBIN (04/20/2020 10:42 AM CDT) Haptoglobin 65 30 - 200 mg/dL 04/20/2020 11:06 AM CDT [facility] Blood BLOOD SPECIMEN / Unknown Lab Venipuncture / Unknown 04/20/2020 10:42 AM CDT 04/20/2020 10:42 AM CDT Turner Castillo MD LAB - CHEMISTRY ORDHéctor GO [facility] [address] [place] [address] * (ABNORMAL) LDH BLOOD (04/20/2020 10:42 AM CDT) LDH 358(H) 125 - 220 U/L 04/20/2020 11:06 AM CDT [facility] Blood BLOOD SPECIMEN / Unknown Lab Venipuncture / Unknown 04/20/2020 10:42 AM CDT 04/20/2020 10:42 AM CDT Turner Castillo MD LAB - CHEMISTRY MIRI GO Performing Organization Address [facility] Co de Phone Number [facility] [address] [place] [phone] * PTT (04/20/2020 10:41 AM CDT) PTT 30.7 23.0 - 38.4 sec 04/20/2020 11:00 AM CDT [facility] Blood BLOOD SPECIMEN / Unknown Lab Venipuncture / Unknown 04/20/2020 10:41 AM CDT 04/20/2020 10:41 AM CDT Narrative [facility] - 04/20/2020 11:00 AM CDT Heparin Therapeutic Range for PTT: ??71.0 - 109.0 seconds. Turner Castillo MD LAB - COAGULATION OR DERABLES Performing Organization Address [facility] Co de Phone Number [facility] [address] [place] [address] * PT-INR (04/20/2020 10:41 AM CDT) PT 12.3 12.1 - 14.8 sec 04/20/2020 10:59 AM CDT [facility] INR 1.0 0.9 - 1.1 04/20/2020 10:59 AM CDT [facility] Blood BLOOD SPECIMEN / Unknown Lab Venipuncture / Unknown 04/20/2020 10:41 AM CDT 04/20/2020 10:41 AM CDT Narrative [facility] - 04/20/2020 10:59 AM CDT Conventional Warfarin Anticoagulant Therapy: INR Reference Range: ??2.0-3.0 Intensive Warfarin Anticoagulant Therapy: INR Reference Range: ? 2.5-3.5 Turner Castillo MD LAB - COAGULATION OR DERABLES [facility] [address] [place] [address] * TRANSFUSE RED BLOOD CELL LEUKOREDUCED UNIT(S) (04/20/2020 2:36 AM CDT) Shayna Chirinos MD NURSING - BLOOD P [facility] TRANSFUSION * TRANSFUSE RED BLOOD CELL LEUKOREDUCED UNIT(S), 1 Units (04/20/2020 2:36 AM CDT) Shayna Chirinos MD NURSING - BLOOD P [place] TRANSFUSION * (ABNORMAL) CBC W AUTO DIFFERENTIAL (04/19/2020 9:38 PM CDT) WBC 22.0(H) 4.4 - 10.7 x10E9/L 04/19/2020 10:14 PM CDT [facility] WBC Corrected 04/19/2020 10:14 PM CDT [facility] RBC 2.18(L) 3.80 - 5.20 x10E12/L 04/19/2020 10:14 PM CDT [facility] Hemoglobin 6.4(L) 12.0 - 15.6 gm/dL 04/19/2020 10:14 PM CDT [facility] Hematocrit 18.4(LL) 35.9 - 45.5 % 04/19/2020 10:14 PM CDT [facility] MCV 84.4 80.7 - 98.3 fl 04/19/2020 10:14 PM CDT [facility] MCH 29.4 26.7 - 34.0 pg 04/19/2020 10:14 PM CDT [facility] MCHC 34.8 30.8 - 35.9 gm/dL 04/19/2020 10:14 PM CDT [facility] Platelet Count 136(L) 153 - 416 x10E9/L 04/19/2020 10:14 PM CDT [facility] RDW-CV 19.6(H) 12.1 - 14.9 % 04/19/2020 10:14 PM CDT [facility] MPV 12.9 9.4 - 12.9 fl 04/19/2020 10:14 PM CDT [facility] Neutrophils % 89.3(H) 44.0 - 73.0 % 04/19/2020 10:14 PM CDT [facility] Lymphocytes % 4.0(L) 20.0 - 43.0 % 04/19/2020 10:14 PM CDT [facility] Monocytes % 3.0(L) 5.0 - 13.0 % 04/19/2020 10:14 PM CDT [facility] Eosinophils % 0.8 0.0 - 6.0 % 04/19/2020 10:14 PM CDT [facility] Basophils % 0.1 0.0 - 2.0 % 04/19/2020 10:14 PM CDT [facility] Immature Granulocytes 2.8(H) 0 - 1 % 04/19/2020 10:14 PM CDT [facility] Neutrophil Absolute 19.62(H) 2.01 - 7.14 x10E9/L 04/19/2020 10:14 PM CDT [facility] Lymphocytes Absolute 0.87(L) 1.07 - 3.94 x10E9/L 04/19/2020 10:14 PM CDT [facility] Monocytes Absolute 0.66 0.26 - 1.07 x10E9/L 04/19/2020 10:14 PM CDT [facility] Eosinophils Absolute 0.17 0 - 0.47 x10E9/L 04/19/2020 10:14 PM CDT [facility] Basophils Absolute 0.03 0 - 0.08 x10E9/L 04/19/2020 10:14 PM CDT [facility] Immature Granulocytes Absolute 0.61(H) 0.00 - 0.06 x10E9/L 04/19/2020 10:14 PM CDT [facility] nRBC Auto 1 /100 WBC 04/19/2020 10:14 PM CDT [facility] Blood BLOOD SPECIMEN / Unknown Lab Venipuncture / Unknown 04/19/2020 9:38 PM CDT 04/19/2020 10:03 PM CDT Truner Castillo MD LAB - HEMATOLOGY ORD ERABLES [facility] [address] [place] [address] * (ABNORMAL) CBC W AUTO DIFFERENTIAL (04/19/2020 1:44 PM CDT) WBC 19.8(H) 4.4 - 10.7 x10E9/L 04/19/2020 1:48 PM CDT [facility] WBC Corrected 04/19/2020 1:48 PM CDT [facility] RBC 2.59(L) 3.80 - 5.20 x10E12/L 04/19/2020 1:48 PM CDT [facility] Hemoglobin 7.4(L) 12.0 - 15.6 gm/dL 04/19/2020 1:48 PM CDT [facility] Hematocrit 21.5(L) 35.9 - 45.5 % 04/19/2020 1:48 PM CDT [facility] MCV 83.0 80.7 - 98.3 fl 04/19/2020 1:48 PM CDT [facility] MCH 28.6 26.7 - 34.0 pg 04/19/2020 1:48 PM CDT [facility] MCHC 34.4 30.8 - 35.9 gm/dL 04/19/2020 1:48 PM CDT [facility] Platelet Count 146(L) 153 - 416 x10E9/L 04/19/2020 1:48 PM CDT [facility] RDW-CV 19.3(H) 12.1 - 14.9 % 04/19/2020 1:48 PM CDT [facility] MPV 11.8 9.4 - 12.9 fl 04/19/2020 1:48 PM CDT [facility] Neutrophils % 90.8(H) 44.0 - 73.0 % 04/19/2020 1:48 PM CDT [facility] Lymphocytes % 4.6(L) 20.0 - 43.0 % 04/19/2020 1:48 PM CDT [facility] Monocytes % 2.3(L) 5.0 - 13.0 % 04/19/2020 1:48 PM CDT [facility] Eosinophils % 0.0 0.0 - 6.0 % 04/19/2020 1:48 PM CDT [facility] Basophils % 0.2 0.0 - 2.0 % 04/19/2020 1:48 PM CDT [facility] Immature Granulocytes 2.1(H) 0 - 1 % 04/19/2020 1:48 PM CDT [facility] Neutrophil Absolute 17.95(H) 2.01 - 7.14 x10E9/L 04/19/2020 1:48 PM CDT [facility] Lymphocytes Absolute 0.91(L) 1.07 - 3.94 x10E9/L 04/19/2020 1:48 PM CDT [facility] Monocytes Absolute 0.46 0.26 - 1.07 x10E9/L 04/19/2020 1:48 PM CDT [facility] Eosinophils Absolute 0.00 0 - 0.47 x10E9/L 04/19/2020 1:48 PM CDT [facility] Basophils Absolute 0.03 0 - 0.08 x10E9/L 04/19/2020 1:48 PM CDT [facility] Immature Granulocytes Absolute 0.41(H) 0.00 - 0.06 x10E9/L 04/19/2020 1:48 PM CDT [facility] nRBC Auto 100 WBC 04/19/2020 1:48 PM CDT [facility] Blood BLOOD SPECIMEN / Unknown Venipuncture / Unknown 04/19/2020 1:44 PM CDT 04/19/2020 1:43 PM CDT Turner Castillo MD LAB - HEMATOLOGY ORD ERABLES [facility] [address] [place], [place] [id number] * (ABNORMAL) GLUCOSE - POINT OF CARE (04/19/2020 9:02 AM CDT) [facility] Glucose WB/POC 122(H) 70 - 106 mg/dL 04/19/2020 11:57 PM CDT [facility] Specimen Type Arterial/C apillary 04/19/2020 11:57 PM CDT [facility] Blood BLOOD SPECIMEN / Unknown 04/19/2020 9:02 AM CDT 04/19/2020 11:57 PM CDT Phuong Frazier MD LAB - POINT OF CARE ORDERABLES [facility] [address] [place], [place] [id number] * (ABNORMAL) RENAL FUNCTION PANEL (04/19/2020 3:51 AM CDT) Glucose 136(H) 70 - 105 mg/dL 04/19/2020 4:40 AM CDT [facility] Sodium 137 136 - 145 mmol/L 04/19/2020 4:40 AM CDT [facility] Potassium 4.2 3.5 - 5.1 mmol/L 04/19/2020 4:40 AM CDT [facility] Chloride 112(H) 98 - 107 mmol/L 04/19/2020 4:40 AM CDT [facility] CO2 19(L) 23 - 31 mmol/L 04/19/2020 4:40 AM CDT [facility] Calcium 7.0(LL) 8.4 - 10.4 mg/dL 04/19/2020 4:40 AM CDT [facility] Anion Gap 6(L) 8 - 16 mmol/L 04/19/2020 4:40 AM CDT [facility] BUN 23(H) 7 - 18.7 mg/dL 04/19/2020 4:40 AM CDT [facility] Creatinine 0.84 0.57 - 1.11 mg/dL 04/19/2020 4:40 AM CDT [facility] Albumin 1.7(L) 3.5 - 5.2 gm/dL 04/19/2020 4:40 AM CDT [facility] Phosphorus 4.0 2.3 - 4.7 mg/dL 04/19/2020 4:40 AM CDT [facility] eGFR by MDRD >60 >60 mL/min/1.7 3m2 04/19/2020 4:40 AM CDT [facility] eGFR by MDRD >60 >60 mL/min/1.7 3m2 04/19/2020 4:40 AM CDT [facility] Blood BLOOD SPECIMEN / Unknown Venipuncture / Unknown 04/19/2020 3:51 AM CDT 04/19/2020 4:05 AM CDT Clem Brown MD LAB - CHEMISTRY MIRI GO [facility] Organization Address City/State/ZIP Co de Phone Number [facility] [address] [place] [address] * (ABNORMAL) MAGNESIUM BLOOD (04/19/2020 3:51 AM CDT) Magnesium 1.4(L) 1.6 - 2.6 mg/dL 04/19/2020 4:32 AM CDT [facility] Blood BLOOD SPECIMEN / Unknown Venipuncture / Unknown 04/19/2020 3:51 AM CDT 04/19/2020 4:05 AM CDT Clem Brown MD LAB - CHEMISTRY MIRI GO Performing Organization Address [facility]/ZIP Co de Phone Number [facility] [address] [place], [place] [phone] * LACTIC ACID BLOOD (04/19/2020 3:51 AM CDT) Lactic Acid 1.2 0.5 - 2.2 mmol/L 04/19/2020 4:27 AM CDT [facility] Blood BLOOD SPECIMEN / Unknown Venipuncture / Unknown 04/19/2020 3:51 AM CDT 04/19/2020 4:05 AM CDT Maikel Ring MD LAB - CHEMISTRY O RDERABLES Performing Organization Address [facility] Co de Phone Number [facility] [address] [place] [address] * (ABNORMAL) CBC W AUTO DIFFERENTIAL (04/19/2020 3:51 AM CDT) WBC 19.6(H) 4.4 - 10.7 x10E9/L 04/19/2020 4:19 AM CDT [facility] WBC Corrected 04/19/2020 4:19 AM CDT [facility] RBC 2.70(L) 3.80 - 5.20 x10E12/L 04/19/2020 4:19 AM CDT [facility] Hemoglobin 7.6(L) 12.0 - 15.6 gm/dL 04/19/2020 4:19 AM CDT [facility] Hematocrit 21.7(L) 35.9 - 45.5 % 04/19/2020 4:19 AM CDT [facility] MCV 80.4(L) 80.7 - 98.3 fl 04/19/2020 4:19 AM CDT [facility] MCH 28.1 26.7 - 34.0 pg 04/19/2020 4:19 AM CDT [facility] MCHC 35.0 30.8 - 35.9 gm/dL 04/19/2020 4:19 AM [facility] Platelet Count 124(L) 153 - 416 x10E9/L 04/19/2020 4:19 AM [facility] RDW-CV 18.2(H) 12.1 - 14.9 % 04/19/2020 4:19 AM [facility] MPV 12.5 9.4 - 12.9 fl 04/19/2020 4:19 AM [facility] Neutrophils % 85.7(H) 44.0 - 73.0 % 04/19/2020 4:19 AM [facility] Lymphocytes % 6.7(L) 20.0 - 43.0 % 04/19/2020 4:19 AM [facility] Monocytes % 6.7 5.0 - 13.0 % 04/19/2020 4:19 AM [facility] Eosinophils % 0.0 0.0 - 6.0 % 04/19/2020 4:19 AM [facility] Basophils % 0.1 0.0 - 2.0 % 04/19/2020 4:19 AM [facility] Immature Granulocytes 0.8 0 - 1 % 04/19/2020 4:19 AM [facility] Neutrophil Absolute 16.84(H) 2.01 - 7.14 x10E9/L 04/19/2020 4:19 AM [facility] Lymphocytes Absolute 1.32 1.07 - 3.94 x10E9/L 04/19/2020 4:19 AM [facility] Monocytes Absolute 1.31(H) 0.26 - 1.07 x10E9/L 04/19/2020 4:19 AM [facility] Eosinophils Absolute 0.00 0 - 0.47 x10E9/L 04/19/2020 4:19 AM [facility] Basophils Absolute 0.02 0 - 0.08 x10E9/L 04/19/2020 4:19 AM [facility] Immature Granulocytes Absolute 0.15(H) 0.00 - 0.06 x10E9/L 04/19/2020 4:19 AM [facility] nRBC Auto 1 /100 WBC 04/19/2020 4:19 AM CDT [facility] Blood BLOOD SPECIMEN / Unknown Venipuncture / Unknown 04/19/2020 3:51 AM CDT 04/19/2020 4:05 AM CDT Clem Brown MD LAB - HEMATOLOGY ORD ROMARIO Performing Organization Address City/[facility]/ZIP Co de Phone Number [facility] [address] [place] [phone] * (ABNORMAL) HAPTOGLOBIN (04/19/2020 3:51 AM CDT) Haptoglobin 9(L) 30 - 200 mg/dL 04/19/2020 4:36 AM CDT [facility] Blood BLOOD SPECIMEN / Unknown Venipuncture / Unknown 04/19/2020 3:51 AM CDT 04/19/2020 4:05 AM CDT Heraclio Dave MD LAB - CHEMISTRY MIRI GO [facility] [address] [place] [id number] * PT PTT PANEL (04/19/2020 3:50 AM CDT) Pathologist [facility] PT 12.6 12.1 - 14.8 sec 04/19/2020 4:27 AM CDT [facility] INR 1.0 0.9 - 1.1 04/19/2020 4:27 AM CDT [facility] PTT 27.8 23.0 - 38.4 sec 04/19/2020 4:27 AM CDT [facility] Blood BLOOD SPECIMEN / Unknown Venipuncture / Unknown 04/19/2020 3:50 AM CDT 04/19/2020 4:05 AM CDT Narrative [facility] - 04/19/2020 4:27 AM CDT Conventional Warfarin Anticoagulant Therapy: INR Reference Range: ??2.0-3.0 Intensive Warfarin Anticoagulant Therapy: INR Reference Range: ? 2.5-3.5 Heparin Therapeutic Range for PTT: ??71.0 - 109.0 seconds. Clem Brown MD LAB - COAGULATION OR DERABLES Performing Organization Address [facility] Co de Phone Number [facility] [address] [place] [address] * TRANSFUSE RED BLOOD CELL LEUKOREDUCED UNIT(S) [...] - 106 mg/dL 04/18/2020 11:52 PM CDT [facility] Specimen Type Arterial/C apillary 04/18/2020 11:52 PM CDT [facility] Blood BLOOD SPECIMEN / Unknown 04/18/2020 11:42 PM CDT 04/18/2020 11:52 PM CDT Phuong Frazier MD LAB - POINT OF CARE ORDERABLES Performing Organization Address [facility] Co de Phone Number [facility] [address] [place] [address] * TRANSFUSE RED BLOOD CELL LEUKOREDUCED UNIT(S) (04/18/2020 11:39 PM CDT) Mayuri Norton MD NURSING - BLOOD PROD TRANSFUSION * TRANSFUSE RED BLOOD CELL LEUKOREDUCED UNIT(S), 2 Units (04/18/2020 11:39 PM CDT) Mayuri Norton MD NURSING - BLOOD PROD TRANSFUSION * PT PTT PANEL (04/18/2020 10:22 PM CDT) Pathologist [facility] PT 13.3 12.1 - 14.8 sec 04/18/2020 10:44 PM CDT [facility] INR 1.1 0.9 - 1.1 04/18/2020 10:44 PM CDT [facility] PTT 29.4 23.0 - 38.4 sec 04/18/2020 10:44 PM CDT [facility] Blood BLOOD SPECIMEN / Unknown Venipuncture / Unknown 04/18/2020 10:22 PM CDT 04/18/2020 10:[address] [facility] - 04/18/2020 10:44 PM CDT Conventional Warfarin Anticoagulant Therapy: INR Reference Range: ??2.0-3.0 Intensive Warfarin Anticoagulant Therapy: INR Reference Range: ? 2.5-3.5 Heparin Therapeutic Range for PTT: ??71.0 - 109.0 seconds. Clem Brown MD LAB - COAGULATION OR DERABLES [facility] [address] [place] [address] * (ABNORMAL) CBC W AUTO DIFFERENTIAL (04/18/2020 10:22 PM CDT) WBC 19.4(H) 4.4 - 10.7 x10E9/L 04/18/2020 10:48 PM CDT [facility] WBC Corrected 04/18/2020 10:48 PM CDT [facility] RBC 2.34(L) 3.80 - 5.20 x10E12/L 04/18/2020 10:48 PM CDT [facility] Hemoglobin 6.8(L) 12.0 - 15.6 gm/dL 04/18/2020 10:48 PM CDT [facility] [facility] Hematocrit 19.0(LL) 35.9 - 45.5 % 04/18/2020 10:48 PM CDT [facility] MCV 81.2 80.7 - 98.3 fl 04/18/2020 10:48 PM CDT [facility] MCH 29.1 26.7 - 34.0 pg 04/18/2020 10:48 PM CDT [facility] MCHC 35.8 30.8 - 35.9 gm/dL 04/18/2020 10:48 PM CDT [facility] Platelet Count 103(L) 153 - 416 x10E9/L 04/18/2020 10:48 PM CDT [facility] RDW-CV 16.9(H) 12.1 - 14.9 % 04/18/2020 10:48 PM CDT [facility] MPV 13.9(H) 9.4 - 12.9 fl 04/18/2020 10:48 PM CDT [facility] Neutrophils % 91.3(H) 44.0 - 73.0 % 04/18/2020 10:48 PM CDT [facility] Lymphocytes % 4.9(L) 20.0 - 43.0 % 04/18/2020 10:48 PM CDT [facility] Monocytes % 3.1(L) 5.0 - 13.0 % 04/18/2020 10:48 PM CDT [facility] Eosinophils % 0.0 0.0 - 6.0 % 04/18/2020 10:48 PM CDT [facility] Basophils % 0.1 0.0 - 2.0 % 04/18/2020 10:48 PM CDT [facility] Immature Granulocytes 0.6 0 - 1 % 04/18/2020 10:48 PM CDT [facility] Neutrophil Absolute 17.74(H) 2.01 - 7.14 x10E9/L 04/18/2020 10:48 PM CDT [facility] Lymphocytes Absolute 0.96(L) 1.07 - 3.94 x10E9/L 04/18/2020 10:48 PM CDT [facility] Monocytes Absolute 0.60 0.26 - 1.07 x10E9/L 04/18/2020 10:48 PM CDT [facility] Eosinophils Absolute 0.00 0 - 0.47 x10E9/L 04/18/2020 10:48 PM CDT [facility] Basophils Absolute 0.02 0 - 0.08 x10E9/L 04/18/2020 10:48 PM CDT [facility] Immature Granulocytes Absolute 0.12(H) 0.00 - 0.06 x10E9/L 04/18/2020 10:48 PM CDT [facility] nRBC Auto 0 /100 WBC 04/18/2020 10:48 PM CDT [facility] Blood BLOOD SPECIMEN / Unknown Venipuncture / Unknown 04/18/2020 10:22 PM CDT 04/18/2020 10:28 PM CDT Clem Brown MD LAB - HEMATOLOGY ORD ERABLES [facility] [address] [place] [address] * (ABNORMAL) GLUCOSE - POINT OF CARE (04/18/2020 8:54 PM CDT) [facility] Glucose WB/POC 128(H) 70 - 106 mg/dL 04/18/2020 11:52 PM CDT [facility] Specimen Type Arterial/C apillary 04/18/2020 11:52 PM CDT [facility] Blood BLOOD SPECIMEN / Unknown 04/18/2020 8:54 PM CDT 04/18/2020 11:52 PM CDT Phuong Frazier MD LAB - POINT OF CARE ORDERABLES Performing Organization Address [facility] Co de Phone Number [facility] [address] [place], [place] [phone] * PT PTT PANEL (04/18/2020 6:09 PM CDT) [facility] PT 13.4 12.1 - 14.8 sec 04/18/2020 6:33 PM CDT [facility] INR 1.1 0.9 - 1.1 04/18/2020 6:33 PM CDT [facility] PTT 32.0 23.0 - 38.4 sec 04/18/2020 6:33 PM CDT [facility] Blood BLOOD SPECIMEN / Unknown Venipuncture / Unknown 04/18/2020 6:09 PM CDT 04/18/2020 6:15 PM CDT Narrative [facility] - 04/18/2020 6:33 PM CDT Conventional Warfarin Anticoagulant Therapy: INR Reference Range: ??2.0-3.0 Intensive Warfarin Anticoagulant Therapy: INR Reference Range: ? 2.5-3.5 Heparin Therapeutic Range for PTT: ??71.0 - 109.0 seconds. Clem Brown MD LAB - COAGULATION OR DERABLES Performing Organization Address [facility] Co de Phone Number [facility] [address] [place] [phone] * (ABNORMAL) CBC W AUTO DIFFERENTIAL (04/18/2020 6:09 PM CDT) WBC 17.3(H) 4.4 - 10.7 x10E9/L 04/18/2020 6:28 PM CDT [facility] WBC Corrected 04/18/2020 6:28 PM CDT [facility] RBC 2.67(L) 3.80 - 5.20 x10E12/L 04/18/2020 6:28 PM CDT [facility] Hemoglobin 7.4(L) 12.0 - 15.6 gm/dL 04/18/2020 6:28 PM CDT [facility] Hematocrit 21.7(L) 35.9 - 45.5 % 04/18/2020 6:28 PM CDT [facility] MCV 81.3 80.7 - 98.3 fl 04/18/2020 6:28 PM CDT [facility] MCH 27.7 26.7 - 34.0 pg 04/18/2020 6:28 PM CDT [facility] MCHC 34.1 30.8 - 35.9 gm/dL 04/18/2020 6:28 PM CDT [facility] Platelet Count 73(L) 153 - 416 x10E9/L 04/18/2020 6:28 PM CDT [facility] RDW-CV 16.6(H) 12.1 - 14.9 % 04/18/2020 6:28 PM CDT [facility] Neutrophils % 91.1(H) 44.0 - 73.0 % 04/18/2020 6:28 PM CDT [facility] Lymphocytes % 5.9(L) 20.0 - 43.0 % 04/18/2020 6:28 PM CDT [facility] Monocytes % 2.2(L) 5.0 - 13.0 % 04/18/2020 6:28 PM CDT [facility] Eosinophils % 0.0 0.0 - 6.0 % 04/18/2020 6:28 PM CDT [facility] Basophils % 0.1 0.0 - 2.0 % 04/18/2020 6:28 PM CDT [facility] Immature Granulocytes 0.7 0 - 1 % 04/18/2020 6:28 PM CDT [facility] Neutrophil Absolute 15.79(H) 2.01 - 7.14 x10E9/L 04/18/2020 6:28 PM CDT [facility] Lymphocytes Absolute 1.02(L) 1.07 - 3.94 x10E9/L 04/18/2020 6:28 PM CDT [facility] Monocytes Absolute 0.38 0.26 - 1.07 x10E9/L 04/18/2020 6:28 PM CDT [facility] Eosinophils Absolute 0.00 0 - 0.47 x10E9/L 04/18/2020 6:28 PM CDT [facility] Basophils Absolute 0.02 0 - 0.08 x10E9/L 04/18/2020 6:28 PM CDT [facility] Immature Granulocytes Absolute 0.12(H) 0.00 - 0.06 x10E9/L 04/18/2020 6:28 PM CDT [facility] nRBC Auto 0 /100 WBC 04/18/2020 6:28 PM CDT [facility] Blood BLOOD SPECIMEN / Unknown Venipuncture / Unknown 04/18/2020 6:09 PM CDT 04/18/2020 6:15 PM CDT Clem Brown MD LAB - HEMATOLOGY ORD ERABLES [facility] [address] [place] [phone] * GLUCOSE - POINT OF CARE (04/18/2020 4:49 PM CDT) [facility] Glucose WB/POC 103 70 - 106 mg/dL 04/18/2020 11:52 PM CDT [facility] Specimen Type Arterial/C apillary 04/18/2020 11:52 PM CDT [facility] Blood BLOOD SPECIMEN / Unknown 04/18/2020 4:49 PM CDT 04/18/2020 11:52 PM CDT Phuong Frazier MD LAB - POINT OF CARE ORDERABLES [facility] [address] [place], [place] [phone] * XR ABDOMEN KUB (04/18/2020 4:29 PM [...] 7(H) <=0 % 04/18/2020 3:46 PM CDT [facility] Cells Counted 100 # cells 04/18/2020 3:46 PM CDT [facility] Platelet Estimation Decreased( A) Normal, Adequate platelets 04/18/2020 3:46 PM CDT [facility] WBC Morph Normal 04/18/2020 3:46 PM CDT [facility] Anisocytosis 1+(A) None 04/18/2020 3:46 PM CDT [facility] Blood BLOOD SPECIMEN / Unknown Venipuncture / Unknown 04/18/2020 2:29 PM CDT 04/18/2020 2:51 PM CDT Clem Brown MD LAB - HEMATOLOGY ORD ERABLES Performing Organization Address City/[facility]/ZIP Co de Phone Number [facility] [address] [place] [phone] * PT PTT PANEL (04/18/2020 2:29 PM CDT) PT 13.8 12.1 - 14.8 sec 04/18/2020 3:16 PM CDT [facility] INR 1.1 0.9 - 1.1 04/18/2020 3:16 PM CDT [facility] PTT 33.5 23.0 - 38.4 sec 04/18/2020 3:16 PM CDT [facility] Blood BLOOD SPECIMEN / Unknown Venipuncture / Unknown 04/18/2020 2:29 PM CDT 04/18/2020 2:51 PM CDT Narrative [facility] - 04/18/2020 3:16 PM CDT Conventional Warfarin Anticoagulant Therapy: INR Reference Range: ??2.0-3.0 Intensive Warfarin Anticoagulant Therapy: INR Reference Range: ? 2.5-3.5 Heparin Therapeutic Range for PTT: ??71.0 - 109.0 seconds. Clem Brown MD LAB - COAGULATION OR DERABLES Performing Organization Address City/[facility]/ZIP Co de Phone Number [facility] [address] [place] [phone] * (ABNORMAL) CBC W AUTO DIFFERENTIAL (04/18/2020 2:29 PM CDT) WBC 12.4(H) 4.4 - 10.7 x10E9/L 04/18/2020 3:13 PM CDT [facility] WBC Corrected 04/18/2020 3:13 PM CDT [facility] RBC 2.65(L) 3.80 - 5.20 x10E12/L 04/18/2020 3:13 PM CDT [facility] Hemoglobin 7.7(L) 12.0 - 15.6 gm/dL 04/18/2020 3:13 PM CDT [facility] Hematocrit 21.9(L) 35.9 - 45.5 % 04/18/2020 3:13 PM CDT [facility] MCV 82.6 80.7 - 98.3 fl 04/18/2020 3:13 PM CDT [facility] MCH 29.1 26.7 - 34.0 pg 04/18/2020 3:13 PM CDT [facility] MCHC 35.2 30.8 - 35.9 gm/dL 04/18/2020 3:13 PM CDT [facility] Platelet Count 48(L) 153 - 416 x10E9/L 04/18/2020 3:13 PM CDT [facility] RDW-CV 16.6(H) 12.1 - 14.9 % 04/18/2020 3:13 PM CDT [facility] nRBC Auto 0 /100 WBC 04/18/2020 3:13 PM CDT [facility] Blood BLOOD SPECIMEN / Unknown Venipuncture / Unknown 04/18/2020 2:29 PM CDT 04/18/2020 2:51 PM CDT Clem Brown MD LAB - HEMATOLOGY ORD ERABLES [facility] [address] [place] [address] * GLUCOSE - POINT OF CARE (04/18/2020 2:28 PM CDT) [facility] Glucose WB/POC 80 70 - 106 mg/dL 04/18/2020 2:43 PM CDT [facility] Specimen Type Arterial/C apillary 04/18/2020 2:43 PM CDT [facility] Blood BLOOD SPECIMEN / Unknown 04/18/2020 2:28 PM CDT 04/18/2020 2:43 PM CDT Phuong Frazier MD LAB - POINT OF CARE ORDERABLES [facility] [address] [place], [place] [phone] * (ABNORMAL) LACTIC ACID BLOOD (04/18/2020 12:25 PM CDT) Lactic Acid 2.8(H) 0.5 - 2.2 mmol/L 04/18/2020 1:30 PM CDT [facility] Blood BLOOD SPECIMEN / Unknown Venipuncture / Unknown 04/18/2020 12:25 PM CDT 04/18/2020 12:52 PM CDT Clem Brown MD LAB - CHEMISTRY ORDE RABMARTIN Performing Organization Address [facility] Co de Phone Number [facility] [address] [place] [address] * (ABNORMAL) BLOOD GASES ARTERIAL (04/18/2020 12:21 [...] - 2.0 % 04/18/2020 12:30 PM CDT [facility] Oxyhemoglobin Arterial 96 % 04/18/2020 12:30 PM CDT [facility] Mode CMV 04/18/2020 12:30 PM CDT [facility] Aamir's Test N/A 04/18/2020 12:30 PM CDT [facility] FI O2 30 % 04/18/2020 12:30 PM CDT [facility] Tidal Volume 450 mL 04/18/2020 12:30 PM CDT [facility] PEEP (cmH2O) 8.0 04/18/2020 12:30 PM CDT [facility] Respiratory Rate 20.0 04/18/20 20 12:30 PM CDT [facility] Sample Site Art Line 04/18/2020 12:30 PM CDT [facility] Sample Type Arterial 04/18/2020 12:30 PM CDT [facility] Medical Office Secretary ID [id number] 04/18/2020 12:30 PM CDT [facility] Blood, arterial ARTERIAL BLOOD SPECIMEN / Unknown 04/18/2020 12:21 PM CDT 04/18/2020 12:21 PM CDT Clem Brown MD LAB - BLOOD GASES OR DERABLES [facility] [address] [place] [address] * TRANSFUSE RED BLOOD CELL LEUKOREDUCED UNIT(S) (04/18/2020 11:52 AM CDT) Mayuri Norton MD NURSING - BLOOD PROD TRANSFUSION * (ABNORMAL) GLUCOSE - POINT OF CARE (04/18/2020 11:17 AM CDT) [facility] Glucose WB/POC 118(H) 70 - 106 mg/dL 04/18/2020 2:43 PM CDT [facility] Specimen Type Arterial/C apillary 04/18/2020 2:43 PM CDT [facility] Blood BLOOD SPECIMEN / Unknown 04/18/2020 11:17 AM CDT 04/18/2020 2:43 PM CDT Phuong Frazier MD LAB - POINT OF CARE ORDERABLES [facility] [address] [phone] * TRANSFUSE FRESH FROZEN PLASMA UNIT(S) (04/18/2020 [...] BLOOD GASES ARTERIAL (04/18/2020 9:57 AM CDT) [facility] pH Arterial 7.35 7.35 - 7.45 pH [...] - 2.0 mmol/L 04/18/2020 10:05 AM CDT [facility] Comment:L O2 Saturation Arterial 98 90 - 100 % 04/18/2020 10:05 AM CDT [facility] Hemoglobin Arterial 6.0(L) 14.0 - 16.0 gm/dL 04/18/2020 10:05 AM CDT [facility] Carboxyhemoglobin Arterial 0.3 0.0 - 2.5 % 04/18/2020 10:05 AM CDT [facility] Methemoglobin Arterial 1.4 0.0 - 2.0 % 04/18/2020 10:05 AM CDT [facility] Oxyhemoglobin Arterial 96 % 04/18/2020 10:05 AM CDT [facility] Mode CMV 04/18/2020 10:05 AM CDT [facility] Aamir's Test N/A 04/18/2020 10:05 AM CDT [facility] FI O2 30 % 04/18/2020 10:05 AM CDT [facility] Tidal Volume 450 mL 04/18/2020 10:05 AM CDT [facility] PEEP (cmH2O) 8.0 04/18/2020 10:05 AM CDT [facility] Respiratory Rate 20.0 04/18/20 20 10:05 AM T [facility] Sample Site Art Line 04/18/2020 10:05 AM CDT [facility] Sample Type Arterial 04/18/2020 10:05 AM CDT [facility] Medical Office Secretary ID [id number] 04/18/2020 10:05 AM T [facility] Blood, arterial ARTERIAL BLOOD SPECIMEN / Unknown 04/18/2020 9:57 AM CDT 04/18/2020 9:57 AM CDT Snehal Crowe MD LAB - BLOO D GASES ORDERABLES [facility] [address] [phone] * (ABNORMAL) LACTIC ACID BLOOD (04/18/2020 9:37 AM CDT) Lactic Acid 4.6(HH) 0.5 - 2.2 mmol/L 04/18/2020 10:12 AM CDT [facility] Blood BLOOD SPECIMEN / Unknown Venipuncture / Unknown 04/18/2020 9:37 AM CDT 04/18/2020 9:41 AM CDT Snehal Crowe MD LAB - CHEM ISTRY ORDERABLES [facility] [address] [place] [address] * (ABNORMAL) CBC W AUTO DIFFERENTIAL (04/18/2020 9:30 AM CDT) WBC 16.9(H) 4.4 - 10.7 x10E9/L 04/18/2020 9:59 AM CDT [facility] WBC Corrected 04/18/2020 9:59 AM CDT [facility] RBC 2.20(L) 3.80 - 5.20 x10E12/L 04/18/2020 9:59 AM CDT [facility] Hemoglobin 6.3(L) 12.0 - 15.6 gm/dL 04/18/2020 9:59 AM CDT [facility] Hematocrit 18.8(LL) 35.9 - 45.5 % 04/18/2020 9:59 AM CDT [facility] MCV 85.5 80.7 - 98.3 fl 04/18/2020 9:59 AM CDT [facility] MCH 28.6 26.7 - 34.0 pg 04/18/2020 9:59 AM CDT [facility] MCHC 33.5 30.8 - 35.9 gm/dL 04/18/2020 9:59 AM CDT [facility] Platelet Count 54(L) 153 - 416 x10E9/L 04/18/2020 9:59 AM CDT [facility] RDW-CV 15.9(H) 12.1 - 14.9 % 04/18/2020 9:59 AM CDT [facility] Neutrophils % 90.6(H) 44.0 - 73.0 % 04/18/2020 9:59 AM CDT [facility] Lymphocytes % 4.3(L) 20.0 - 43.0 % 04/18/2020 9:59 AM CDT [facility] Monocytes % 2.2(L) 5.0 - 13.0 % 04/18/2020 9:59 AM CDT [facility] Eosinophils % 1.2 0.0 - 6.0 % 04/18/2020 9:59 AM CDT [facility] Basophils % 0.2 0.0 - 2.0 % 04/18/2020 9:59 AM CDT [facility] Immature Granulocytes 1.5(H) 0 - 1 % 04/18/2020 9:59 AM CDT [facility] Neutrophil Absolute 15.33(H) 2.01 - 7.14 x10E9/L 04/18/2020 9:59 AM CDT [facility] Lymphocytes Absolute 0.73(L) 1.07 - 3.94 x10E9/L 04/18/2020 9:59 AM CDT [facility] Monocytes Absolute 0.38 0.26 - 1.07 x10E9/L 04/18/2020 9:59 AM CDT [facility] Eosinophils Absolute 0.21 0 - 0.47 x10E9/L 04/18/2020 9:59 AM CDT [facility] Basophils Absolute 0.03 0 - 0.08 x10E9/L 04/18/2020 9:59 AM CDT [facility] Immature Granulocytes Absolute 0.26(H) 0.00 - 0.06 x10E9/L 04/18/2020 9:59 AM CDT [facility] nRBC Auto 0 /100 WBC 04/18/2020 9:59 AM T [facility] Blood BLOOD SPECIMEN / Unknown Venipuncture / Unknown 04/18/2020 9:30 AM CDT 04/18/2020 9:42 AM CDT Clem Brown MD LAB - HEMATOLOGY ORD ERABLES [facility] [address] [place] [address] * IMMUNOGLOBULINS IGG/IGM/IGA PANEL (04/18/2020 9:30 AM CDT) IgA 82 65 - 421 mg/dL 04/18/2020 3:33 PM CDT [facility] IgG 1,629 552-1,631 mg/dL 04/18/2020 3:33 PM CDT [facility] IgM 149 33 - 293 mg/dL 04/18/2020 3:33 PM CDT [facility] Blood BLOOD SPECIMEN / Unknown Venipuncture / Unknown 04/18/2020 9:30 AM CDT 04/18/2020 9:42 AM CDT Heraclio Dave MD LAB - CHEMISTRY MIRI GO Performing Organization Address City/[facility]/ZIP Co de Phone Number [facility] [address] [place] [phone] * (ABNORMAL) LDH BLOOD (04/18/2020 9:30 AM CDT) LDH 337(H) 125 - 220 U/L 04/18/2020 10:14 AM CDT [facility] Blood BLOOD SPECIMEN / Unknown Venipuncture / Unknown 04/18/2020 9:30 AM CDT 04/18/2020 9:42 AM CDT Heraclio Dave MD LAB - CHEMISTRY MIRI GO Performing Organization Address City/[facility]/ZIP Co de Phone Number [facility] [address] [place] [address] * (ABNORMAL) RETIC COUNT (04/18/2020 9:30 AM CDT) Reticulocyte Count 1.77(H) 0.5 - 1.7 % 04/18/2020 9:52 AM CDT [facility] Reticulocyte Absolute 0.0384 0.0041 - 0.0971 x10E6/uL 04/18/2020 9:52 AM CDT [facility] Reticulocyte Immature Fractionated 36.6(H) 0.9 - 14.3 % 04/18/2020 9:52 AM CDT [facility] Hemoglobin Retic 30.2 27.8 - 36.8 pg 04/18/2020 9:52 AM CDT [facility] Blood BLOOD SPECIMEN / Unknown Venipuncture / Unknown 04/18/2020 9:30 AM CDT 04/18/2020 9:42 AM CDT Heraclio Dave MD LAB - HEMATOLOGY ORD ROMARIO Performing Organization Address [facility] Co de Phone Number [facility] [address] [place] [address] * VITAMIN B12 (04/18/2020 9:30 AM CDT) Vitamin B12 220 213 - 816 pg/mL 04/18/2020 10:43 AM CDT [facility] Blood BLOOD SPECIMEN / Unknown Venipuncture / Unknown 04/18/2020 9:30 AM CDT 04/18/2020 9:42 AM CDT Heraclio Dave MD LAB - CHEMISTRY MIRI GO Performing Organization Address [facility] de Phone Number [facility] [address] [place] [address] * REF LAB COMMENT (04/18/2020 9:29 AM CDT) Pathologist [facility] Comment Comment 04/20/2020 7:06 PM CDT [facility] ([facility]) Comment: Severe deficiency of [id number] (less than 10% activity) is a relatively specific finding in patients with a clinical diagnosis of either hereditary or acquired thrombotic thrombocytopenic purpura (TTP). Normal to moderately reduced KQZUAP73 activity results do not exclude a diagnosis of TTP. Conditions that could have MTBZHS16 activity greater than 10% include hemolytic uremic syndrome (HUS), atypical hemolytic uremic syndrome (aHUS), and other thrombotic microangiopathies associated with hematopoietic stem cell and solid organ transplantation, liver disease, DIC, sepsis, , or effects of certain medications (eg, clopidogrel, cyclosporine, mitomycin C, quinine). Blood BLOOD SPECIMEN / Unknown Venipuncture / Unknown 04/18/2020 9:29 AM CDT 04/18/2020 9:42 AM CDT Narrative [facility] ([facility]) - 04/20/2020 7:06 PM CDT Performed at: ??01 - [facility] [address] ??[id number] [employer]: Kiran Guerra MD, Phone: ??[phone] Heraclio Dave MD LAB - CHEMISTRY MIRI GO [facility] ([facility]) [address] [place] [address] * (ABNORMAL) PT PTT PANEL (04/18/2020 9:29 AM CDT) Pathologist [facility] PT 14.3 12.1 - 14.8 sec 04/18/2020 10:00 AM CDT [facility] INR 1.2(H) 0.9 - 1.1 04/18/2020 10:00 AM CDT [facility] PTT 27.0 23.0 - 38.4 sec 04/18/2020 10:00 AM CDT [facility] Blood BLOOD SPECIMEN / Unknown Venipuncture / Unknown 04/18/2020 9:29 AM CDT 04/18/2020 9:42 AM CDT Narrative [facility] - 04/18/2020 10:00 AM CDT Conventional Warfarin Anticoagulant Therapy: INR Reference Range: ??2.0-3.0 Intensive Warfarin Anticoagulant Therapy: INR Reference Range: ? 2.5-3.5 Heparin Therapeutic Range for PTT: ??71.0 - 109.0 seconds. Clem Brown MD LAB - COAGULATION OR DERABLES Performing Organization Address [facility] Co de Phone Number [facility] [address] [phone] * (ABNORMAL) [id number] ANTIBODY (04/18/2020 9:29 AM CDT) Pathologist [facility] [id number] Antibody 15(H) <12 Units/mL 04/22/2020 5:07 PM CDT [facility] ([facility]) Comment: Results for this test are for research purposes only by the assay's energy conservation director. ??The performance characteristics of this product have not been established. ??Results should not be used as a diagnostic procedure without confirmation of the diagnosis by another medically established diagnostic product or procedure. Blood BLOOD SPECIMEN / Unknown Venipuncture / Unknown 04/18/2020 9:29 AM CDT 04/18/2020 9:42 AM CDT Narrative [facility] ([facility]) - 04/22/2020 5:07 PM CDT Performed at: ??01 - [facility] ??[id number] [employer]: Kiran Guerra MD, Phone: ??[phone] Heraclio Dave MD LAB - COAGULATION OR DERABLES [facility] ([facility]) [address] [place] [address] * (ABNORMAL) [id number] ACTIVITY (04/18/2020 9:29 AM CDT) [id number] Activity 41.7(L) >66.8 % 04/20/2020 7:06 PM CDT [facility] ([facility]) Blood BLOOD SPECIMEN / Unknown Venipuncture / Unknown 04/18/2020 9:29 AM CDT 04/18/2020 9:42 AM CDT Narrative [facility] ([facility]) - 04/20/2020 7:06 PM CDT Test(s) [id number] Activity was developed and its performance characteristics determined by [facility]. It has not been cleared or approved by the Food and Drug Administration. Performed at: ??01 - [facility] ??[id number] [employer]: Kiran Guerra MD, Phone: ??[phone] Heraclio Dave MD LAB - COAGULATION OR DERABLES Performing Organization Address [facility] Co de Phone Number [facility] ([facility]) [address] [place] [address] * LISET DIRECT (04/18/2020 9:29 AM CDT) Direct Liset (LANDY) NEG 04/18/2020 10:25 AM CDT [facility] B[facility]OD [facility] LAB Blood Bank BLOOD SPECIMEN / Unknown Venipuncture / Unknown 04/18/2020 9:29 AM CDT 04/18/2020 9:43 AM CDT Heraclio Dave MD LAB - BLOOD BANK ORD ERABLES Performing Organization Address City/[facility]/ZIP Co de Phone Number [facility] BLOOD [facility] LAB [address] [phone] * FIBRINOGEN ACTIVITY (04/18/2020 9:29 AM CDT) [facility] Fibrinogen 217 200 - 400 mg/dL 04/18/2020 9:59 AM CDT [facility] Blood BLOOD SPECIMEN / Unknown Venipuncture / Unknown 04/18/2020 9:29 AM CDT 04/18/2020 9:42 AM CDT Annabella Johnson MD LAB - COAGULATION OR DERABLES Performing Organization Address City/[facility]/ZIP Co de Phone Number [facility] [address] [place] [address] * (ABNORMAL) GLUCOSE - POINT OF CARE (04/18/2020 9:26 AM CDT) [facility] Glucose WB/POC 174(H) 70 - 106 mg/dL 04/18/2020 2:43 PM CDT [facility] Specimen Type Arterial/C apillary 04/18/2020 2:43 PM CDT [facility] Blood BLOOD SPECIMEN / Unknown 04/18/2020 9:26 AM CDT 04/18/2020 2:43 PM CDT Phuong Frazier MD LAB - POINT OF CARE ORDERABLES Performing Organization Address [facility]/ZIP Co de Phone Number [facility] [address] [place] [address] * PATHOLOGY PERIPHERAL SMEAR REVIEW (04/18/2020 8:31 AM CDT) [facility] Case Report Pathology Interpretation Report ? Case: [id number] ? Authorizing Provider: ??Heraclio Dave MD ? Collected: ? 04/18/2020 08:31 AM ? Ordering Location: ? [facility] 4 ICU MEDICAL ? Received: ?04/18/2020 08:31 AM ? Pathologist: ? Kathelen Clay, ? MD ? Specimen: ?Blood ? 04/18/2020 2:22 PM CDT [facility] Final Diagnosis Final diagnosis: - Leukocytosis with left-shift - Normocytic, normochromic anemia - Severe thrombocytopenia A comparison with a previous slide was requested ([id number]). Review of the morphologic and differential count [...] correlation is advised. 04/18/2020 2:22 PM CDT [facility] Blood BLOOD SPECIMEN / Unknown 04/18/2020 8:31 AM CDT 04/18/2020 8:31 AM CDT Heraclio Dave MD LAB - PATHOLOGY/CYTO LOGY ORDERABLES Performing Organization Address City/State/[facility] Co de Phone Number [facility] [address] [place] [address] * XR CHEST 1VW PORTABLE (04/18/2020 8:15 [...] - 14.8 sec 04/18/2020 8:29 AM CDT [facility] INR 1.1 0.9 - 1.1 04/18/2020 8:29 AM CDT [facility] PTT 27.5 23.0 - 38.4 sec 04/18/2020 8:29 AM CDT [facility] Fibrinogen 278 200 - 400 mg/dL 04/18/2020 8:29 AM CDT [facility] D-Dimer 3.18(H) 0.27 - 0.50 ug/mL FEU 04/18/2020 8:29 AM CDT [facility] Platelet Count 51(L) 153 - 416 x10E9/L 04/18/2020 8:29 AM T [facility] Blood BLOOD SPECIMEN / Unknown Venipuncture / Unknown 04/18/2020 7:53 AM CDT 04/18/2020 8:09 AM CDT Narrative [facility] - 04/18/2020 8:29 AM CDT Conventional [...] Brown MD LAB - COAGULATION OR DERABLES [facility] [address] [place] [address] * (ABNORMAL) CBC W AUTO DIFFERENTIAL (04/18/2020 7:50 AM CDT) WBC 17.6(H) 4.4 - 10.7 x10E9/L 04/18/2020 8:20 AM CDT [facility] WBC Corrected 04/18/2020 8:20 AM CDT [facility] RBC 2.96(L) 3.80 - 5.20 x10E12/L 04/18/2020 8:20 AM CDT [facility] Hemoglobin 8.2(L) 12.0 - 15.6 gm/dL 04/18/2020 8:20 AM CDT [facility] Hematocrit 25.1(L) 35.9 - 45.5 % 04/18/2020 8:20 AM CDT [facility] MCV 84.8 80.7 - 98.3 fl 04/18/2020 8:20 AM CDT [facility] MCH 27.7 26.7 - 34.0 pg 04/18/2020 8:20 AM CDT [facility] MCHC 32.7 30.8 - 35.9 gm/dL 04/18/2020 8:20 AM CDT [facility] Platelet Count 53(L) 153 - 416 x10E9/L 04/18/2020 8:20 AM CDT [facility] RDW-CV 15.7(H) 12.1 - 14.9 % 04/18/2020 8:20 AM CDT [facility] Neutrophils % 91.9(H) 44.0 - 73.0 % 04/18/2020 8:20 AM CDT [facility] Lymphocytes % 4.4(L) 20.0 - 43.0 % 04/18/2020 8:20 AM CDT [facility] Monocytes % 2.0(L) 5.0 - 13.0 % 04/18/2020 8:20 AM CDT [facility] Eosinophils % 0.1 0.0 - 6.0 % 04/18/2020 8:20 AM CDT [facility] Basophils % 0.2 0.0 - 2.0 % 04/18/2020 8:20 AM CDT [facility] Immature Granulocytes 1.4(H) 0 - 1 % 04/18/2020 8:20 AM CDT [facility] Neutrophil Absolute 16.17(H) 2.01 - 7.14 x10E9/L 04/18/2020 8:20 AM CDT [facility] Lymphocytes Absolute 0.77(L) 1.07 - 3.94 x10E9/L 04/18/2020 8:20 AM CDT [facility] Monocytes Absolute 0.35 0.26 - 1.07 x10E9/L 04/18/2020 8:20 AM CDT [facility] Eosinophils Absolute 0.01 0 - 0.47 x10E9/L 04/18/2020 8:20 AM CDT [facility] Basophils Absolute 0.04 0 - 0.08 x10E9/L 04/18/2020 8:20 AM CDT [facility] Immature Granulocytes Absolute 0.24(H) 0.00 - 0.06 x10E9/L 04/18/2020 8:20 AM CDT [facility] nRBC Auto 0 /100 WBC 04/18/2020 8:20 AM CDT [facility] Blood BLOOD SPECIMEN / Unknown Venipuncture / Unknown 04/18/2020 7:50 AM CDT 04/18/2020 8:09 AM CDT Clem Brown MD LAB - HEMATOLOGY ORD ERABLES [facility] [address] [place] [address] * (ABNORMAL) BLOOD GASES ARTERIAL (04/18/2020 7:43 [...] THERAPY Mode CMV 04/18/2020 9:03 AM CDT [facility] RESP THERAPY Aamir's Test N/A 04/18/2020 9:03 AM CDT [facility] RESP THERAPY FI O2 40 % 04/18/2020 9:03 AM CDT [facility] RESP THERAPY Tidal Volume 450 mL 04/18/2020 9:03 AM CDT [facility] RESP THERAPY PEEP (cmH2O) 8.0 04/18/2020 9:03 AM CDT [facility] RESP THERAPY Respiratory Rate 20.0 04/18/20 20 9:03 AM CDT [facility] RESP THERAPY Sample Site Art Line 04/18/2020 9:03 AM CDT [facility] RESP THERAPY Sample Type Arterial 04/18/2020 9:03 AM CDT [facility] RESP THERAPY Medical Office Secretary ID [id number] 04/18/2020 9:03 AM CDT [facility] RESP THERAPY Blood, arterial ARTERIAL BLOOD SPECIMEN / Unknown 04/18/2020 7:43 AM CDT 04/18/2020 7:43 AM CDT Angela Mallory MD LAB - BLOOD GASES OR DERABLES Performing Organization Address City/State/[facility] Co de Phone Number [facility] RESP THERAPY [address] [place] [address] * (ABNORMAL) BLOOD GASES ARTERIAL (04/18/2020 6:07 AM CDT) pH Arterial 7.08(LL) 7.35 - 7.45 pH 04/18/2020 6:16 AM CDT [facility] RESP THERAPY Comment:LL pCO2 Arterial 56(H) 35 - 45 mm hg 04/18/2020 6:16 AM CDT [facility] RESP THERAPY Comment:H pO2 Arterial 281(H) 80 - 100 mm hg 04/18/2020 6:16 AM CDT [facility] RESP THERAPY Comment:H HCO3 Arterial 16(L) 22 - 26 mmol/L 04/18/2020 6:16 AM CDT [facility] RESP THERAPY Comment:L BE Arterial -13.4(L) -2.0 - 2.0 mmol/L 04/18/2020 6:16 AM CDT [facility] RESP THERAPY Comment:L O2 Saturation Arterial 99 90 - 100 % 04/18/2020 6:16 AM CDT [facility] RESP THERAPY Hemoglobin Arterial 10.6(L) 14.0 - 16.0 gm/dL 04/18/2020 6:16 AM CDT [facility] RESP THERAPY Carboxyhemoglobin Arterial 0.1 0.0 - 2.5 % 04/18/2020 6:16 AM CDT [facility] RESP THERAPY Methemoglobin Arterial 0.8 0.0 - 2.0 % 04/18/2020 6:16 AM CDT [facility] RESP THERAPY Oxyhemoglobin Arterial 98 % 04/18/2020 6:16 AM CDT [facility] RESP THERAPY O2 Content Arterial 15.3 % 04/18 6:16 AM CDT [facility] RESP THERAPY Comment:L Aamir's Test N/A 04/18/2020 6:16 AM CDT [facility] RESP THERAPY FI O2 100 % 04/18/2020 6:16 AM CDT [facility] RESP THERAPY Tidal Volume 350 mL 04/18/2020 6:16 AM CDT [facility] RESP THERAPY PEEP (cmH2O) 5.0 04/18/2020 6:16 AM CDT [facility] RESP THERAPY Respiratory Rate 16.0 04/18/20 20 6:16 AM CDT [facility] RESP THERAPY Sample Site Art Line 04/18/2020 6:16 AM CDT [facility] RESP THERAPY Sample Type Arterial 04/18/2020 6:16 AM CDT [facility] RESP THERAPY Medical Office Secretary ID [id number] 04/18/2020 6:16 AM CDT [facility] RESP THERAPY Notified Renea Mallory 04/18/2020 6:16 AM CDT [facility] RESP THERAPY Notification Time 04/18/2020 06:16 04/18/2020 6:16 AM CDT [facility] RESP THERAPY Notified By Kusum LARA 04/18/2020 6:16 AM CDT [facility] RESP THERAPY Blood, arterial ARTERIAL BLOOD SPECIMEN / Unknown 04/18/2020 6:07 AM CDT 04/18/2020 6:07 AM CDT Maikel Ring MD LAB - BLOOD GASES ORDERABLES [facility] RESP THERAPY [address] [place] [address] * (ABNORMAL) TRIGLYCERIDES BLOOD (04/18/2020 5:37 AM CDT) Triglycerides 160(H) <150 mg/dL 04/18/2020 8:16 AM CDT [facility] Blood BLOOD SPECIMEN / Unknown Venipuncture / Unknown 04/18/2020 5:37 AM CDT 04/18/2020 5:45 AM CDT Snehal Crowe MD LAB - CHEM ISTRY ORDERABLES Performing Organization Address [facility] Phone Number [facility] [address] [place] [address] * (ABNORMAL) SLIDE SCAN HEMATOLOGY (04/18/2020 5:37 AM CDT) Platelet Estimation Decrease d(A) Normal, Adequate platelets 04/18/2020 7:07 AM CDT [facility] Anisocytosis 1+(A) None 04/18/2020 7:07 AM CDT [facility] Poikilocytosis 1+(A) None 04/18/2020 7:07 AM CDT [facility] Polychromasia Occasion al(A) None 04/18/2020 7:07 AM CDT [facility] [place] Cells 1+(A) None 04/18/2020 7:07 AM CDT [facility] Blood BLOOD SPECIMEN / Unknown Venipuncture / Unknown 04/18/2020 5:37 AM CDT 04/18/2020 5:45 AM CDT Maikel Ring MD LAB - HEMATOLOGY ORDERABLES Performing Organization Address [facility] Phone Number [facility] [address] [place] [address] * (ABNORMAL) MAGNESIUM BLOOD (04/18/2020 5:37 AM CDT) Pathologist [facility] Magnesium 1.3(L) 1.6 - 2.6 mg/dL 04/18/2020 6:26 AM CDT [facility] Blood BLOOD SPECIMEN / Unknown Venipuncture / Unknown 04/18/2020 5:37 AM CDT 04/18/2020 5:45 AM CDT Maikel Ring MD LAB - CHEMISTRY O RDERABLES Performing Organization Address City/[facility] Co de Phone Number [facility] [address] [place] [address] * (ABNORMAL) COAGULATION PANEL W D-DIMER (04/18/2020 5:37 AM CDT) [facility] PT 14.5 12.1 - 14.8 sec 04/18/2020 6:58 AM CDT [facility] INR 1.2(H) 0.9 - 1.1 04/18/2020 6:58 AM T [facility] PTT 33.8 23.0 - 38.4 sec 04/18/2020 6:58 AM CDT [facility] Fibrinogen 239 200 - 400 mg/dL 04/18/2020 6:58 AM CDT [facility] D-Dimer 3.75(H) 0.27 - 0.50 ug/mL FEU 04/18/2020 6:58 AM T [facility] Platelet Count 38(LL) 153 - 416 x10E9/L 04/18/2020 6:58 AM T [facility] Blood BLOOD SPECIMEN / Unknown Venipuncture / Unknown 04/18/2020 5:37 AM CDT 04/18/2020 5:45 AM CDT Narrative [facility] - 04/18/2020 6:58 AM CDT Conventional [...] Maikel Ring MD LAB - COAGULATION ORDERABLES [facility] [address] [place] [address] * (ABNORMAL) COMPREHENSIVE METABOLIC PANEL (04/18/2020 5:37 AM CDT) Glucose 306(H) 70 - 105 mg/dL 04/18/2020 6:30 AM T [facility] Sodium 138 136 - 145 mmol/L 04/18/2020 6:30 AM CDT [facility] Potassium 4.8 3.5 - 5.1 mmol/L 04/18/2020 6:30 AM CDT [facility] Chloride 110(H) 98 - 107 mmol/L 04/18/2020 6:30 AM CDT [facility] CO2 13(L) 23 - 31 mmol/L 04/18/2020 6:30 AM CDT [facility] Calcium 6.8(LL) 8.4 - 10.4 mg/dL 04/18/2020 6:30 AM CDT [facility] Anion Gap 15 8 - 16 mmol/L 04/18/2020 6:30 AM CDT [facility] BUN 20(H) 7 - 18.7 mg/dL 04/18/2020 6:30 AM CDT [facility] Creatinine 1.02 0.57 - 1.11 mg/dL 04/18/2020 6:30 AM CDT [facility] Alkaline Phosphatase 192(H) 40 - 150 U/L 04/18/2020 6:30 AM CDT [facility] ALT 22 0 - 61 U/L 04/18/2020 6:30 AM CDT [facility] AST 34 5 - 34 U/L 04/18/2020 6:30 AM CDT [facility] Protein Total 4.7(L) 6.4 - 8.3 gm/dL 04/18/2020 6:30 AM CDT [facility] Albumin 2.6(L) 3.5 - 5.2 gm/dL 04/18/2020 6:30 AM CDT [facility] Bilirubin Total 0.5 0.2 - 1.0 mg/dL 04/18/2020 6:30 AM CDT [facility] eGFR by MDRD >60 >60 mL/min/1.7 3m2 04/18/2020 6:30 AM CDT [facility] eGFR by MDRD >60 >60 mL/min/1.7 3m2 04/18/2020 6:30 AM CDT [facility] Blood BLOOD SPECIMEN / Unknown Venipuncture / Unknown 04/18/2020 5:37 AM CDT 04/18/2020 5:45 AM CDT Maikel Ring MD LAB - CHEMISTRY O RDERABLES Performing Organization Address City/State/[facility] Co de Phone Number [facility] [address] [place], [place] [id number] * (ABNORMAL) LACTIC ACID BLOOD (04/18/2020 5:37 AM CDT) Lactic Acid 6.9(HH) 0.5 - 2.2 mmol/L 04/18/2020 6:23 AM CDT [facility] Blood BLOOD SPECIMEN / Unknown Venipuncture / Unknown 04/18/2020 5:37 AM CDT 04/18/2020 5:44 AM CDT Maikel Ring MD LAB - CHEMISTRY O RDERABLES [facility] [address] [place], [place] [id number] * (ABNORMAL) CBC W AUTO DIFFERENTIAL (04/18/2020 5:37 AM CDT) WBC 23.1(H) 4.4 - 10.7 x10E9/L 04/18/2020 6:33 AM CDT [facility] WBC Corrected 04/18/2020 6:33 AM CDT [facility] RBC 3.23(L) 3.80 - 5.20 x10E12/L 04/18/2020 6:33 AM CDT [facility] Hemoglobin 8.9(L) 12.0 - 15.6 gm/dL 04/18/2020 6:33 AM CDT [facility] Hematocrit 28.6(L) 35.9 - 45.5 % 04/18/2020 6:33 AM CDT [facility] MCV 88.5 80.7 - 98.3 fl 04/18/2020 6:33 AM CDT [facility] MCH 27.6 26.7 - 34.0 pg 04/18/2020 6:33 AM CDT [facility] MCHC 31.1 30.8 - 35.9 gm/dL 04/18/2020 6:33 AM CDT [facility] Platelet Count 39(LL) 153 - 416 x10E9/L 04/18/2020 6:33 AM CDT [facility] RDW-CV 16.3(H) 12.1 - 14.9 % 04/18/2020 6:33 AM CDT [facility] Neutrophils % 87.8(H) 44.0 - 73.0 % 04/18/2020 6:33 AM CDT [facility] Lymphocytes % 5.2(L) 20.0 - 43.0 % 04/18/2020 6:33 AM CDT [facility] Monocytes % 2.0(L) 5.0 - 13.0 % 04/18/2020 6:33 AM CDT [facility] Eosinophils % 0.2 0.0 - 6.0 % 04/18/2020 6:33 AM CDT [facility] Basophils % 0.4 0.0 - 2.0 % 04/18/2020 6:33 AM CDT [facility] Immature Granulocytes 4.4(H) 0 - 1 % 04/18/2020 6:33 AM CDT [facility] Neutrophil Absolute 20.24(H) 2.01 - 7.14 x10E9/L 04/18/2020 6:33 AM CDT [facility] Lymphocytes Absolute 1.21 1.07 - 3.94 x10E9/L 04/18/2020 6:33 AM CDT [facility] Monocytes Absolute 0.46 0.26 - 1.07 x10E9/L 04/18/2020 6:33 AM CDT [facility] Eosinophils Absolute 0.04 0 - 0.47 x10E9/L 04/18/2020 6:33 AM CDT [facility] Basophils Absolute 0.09(H) 0 - 0.08 x10E9/L 04/18/2020 6:33 AM CDT [facility] Immature Granulocytes Absolute 1.01(H) 0.00 - 0.06 x10E9/L 04/18/2020 6:33 AM CDT [facility] nRBC Auto 0 /100 WBC 04/18/2020 6:33 AM CDT [facility] Blood BLOOD SPECIMEN / Unknown Venipuncture / Unknown 04/18/2020 5:37 AM CDT 04/18/2020 5:45 AM CDT Maikel Ring MD LAB - HEMATOLOGY ORDERABLES Performing Organization Address City/State/[facility] Co de Phone Number [facility] [address] [place], [place] [phone] * PTT (04/18/2020 5:37 AM CDT) [facility] PTT 33.0 23.0 - 38.4 sec 04/18/2020 6:53 AM CDT [facility] Blood BLOOD SPECIMEN / Unknown Venipuncture / Unknown 04/18/2020 5:37 AM CDT 04/18/2020 5:45 AM CDT Narrative [facility] - 04/18/2020 6:53 AM CDT Heparin Therapeutic Range for PTT: ??71.0 - 109.0 seconds. Annabella Johnson MD LAB - COAGULATION OR DERABLES Performing Organization Address [facility] de Phone Number [facility] [address] [place], [place] [phone] * (ABNORMAL) PT-INR (04/18/2020 5:37 AM CDT) Pathologist [facility] PT 14.4 12.1 - 14.8 sec 04/18/2020 6:52 AM CDT [facility] INR 1.2(H) 0.9 - 1.1 04/18/2020 6:52 AM CDT [facility] Blood BLOOD SPECIMEN / Unknown Venipuncture / Unknown 04/18/2020 5:37 AM CDT 04/18/2020 5:45 AM CDT Narrative [facility] - 04/18/2020 6:52 AM CDT Conventional Warfarin Anticoagulant Therapy: INR Reference Range: ??2.0-3.0 Intensive Warfarin Anticoagulant Therapy: INR Reference Range: ? 2.5-3.5 Annabella Johnson MD LAB - COAGULATION OR DERABLES Performing Organization Address [facility] de Phone Number [facility] [address] [place], [place] [phone] * FIBRINOGEN ACTIVITY (04/18/2020 5:37 AM CDT) [facility] Fibrinogen 250 200 - 400 mg/dL 04/18/2020 6:55 AM CDT [facility] Blood BLOOD SPECIMEN / Unknown Venipuncture / Unknown 04/18/2020 5:37 AM CDT 04/18/2020 5:45 AM CDT Annabella Johnson MD LAB - COAGULATION OR DERABLES Performing Organization Address [facility] de Phone Number [facility] [address] [place], [place] [id number] * PATHOLOGY TISSUE EXAM (STL) (04/18/2020 4:24 AM CDT) Pathologist [facility] Case Report Surgical Pathology Report ? Case: [id number] ? Authorizing Provider: ??Marisa James MD ? Collected: ? 04/18/2020 04:24 AM ? Ordering Location: ? [facility] 5 LDR ? Received: ?04/18/2020 07:17 AM ? Pathologist: ? Phuong Hernadez MD ? Specimens: ?? A) - Placenta 3rd Trimester ? B) - Placenta 3rd Trimester ? 04/23/2020 7:57 AM [facility] Final Diagnosis Twin placenta, delivery (A) [...] with recent perivascular hemorrhage 04/23/2020 7:57 AM [facility] Clinical History The patient is a 29-year-old woman at 38 weeks, 1 day gestation with twins, with clinically suspected placental abruption. 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 Operative procedure/findings: section, Apgars 6/7/8 and 5/8. 04/23/2020 7:57 AM [facility] Gross Description The requisition and specimens [...] of the maternal surface, or gross infarcts. [facility] [place] sections are submitted as follows: A1 - [...] of the maternal surface, or gross infarcts. [facility] [place] sections are submitted as follows: B1 - attached umbilical cord and membranes B2-B3 - placenta B4 - detached segment of umbilical cord DS/ns 04/23/2020 7:57 AM T [facility] Microscopic Description Microscopic examination substantiates the [...] helpful if clinically indicated. 04/23/2020 7:57 AM [facility] Disclaimer All histochemical and/or immunohistochemical results are interpreted with controls that demonstrate appropriate staining reactions before reporting results. Note on use of immunocytochemistry reagents: This test was developed and its performance characteristic determined by [facility], Department of Laboratory Medicine. It [...] interpreted with caution. 04/23/2020 7:57 AM T [facility] Embedded Images 04/23/2020 7:57 AM CDT [facility] Pathology/Cytology ENTIRE PLACENTA / Unknown 04/18/2020 4:24 AM CDT 04/18/2020 7:17 AM CDT Comment:Pre-op diagnosis: Twin delivery by [O30.009] Miscellaneous samples (specimen) ENTIRE PLACENTA / Unknown 04/18/2020 4:25 AM CDT 04/18/2020 7:17 AM CDT Comment:Pre-op diagnosis: Twin delivery by [[email or web address]] Marisa James MD LAB - PATHOLOGY/CYTO LOGY ORDERABLES [facility] [address] [place] [address] * HEMOGLOBIN A1C (04/18/2020 4:13 AM CDT) Hemoglobin A1c 5.2 4.2 - 5.6 % 04/18/2020 6:37 AM CDT [facility] Estimated Average Glucose 103 mg/dL 04/18/2020 6:37 AM CDT [facility] Blood BLOOD SPECIMEN / Unknown Venipuncture / Unknown 04/18/2020 4:13 AM CDT 04/18/2020 4:16 AM CDT Narrative [facility] - 04/18/2020 6:37 AM CDT The following cutoff levels are recommended by [place] [employer]. ?? A1c ??> 6.5% : [...] Ring MD LAB - CHEMISTRY O RDERABLES [facility] [address] [place] [address] * (ABNORMAL) COMPREHENSIVE METABOLIC PANEL (04/18/2020 4:13 [...] - 16 mmol/L 04/18/2020 4:45 AM CDT [facility] BUN 19(H) 7 - 18.7 mg/dL 04/18/2020 4:45 AM CDT [facility] Creatinine 0.99 0.57 - 1.11 mg/dL 04/18/2020 4:45 AM CDT [facility] Alkaline Phosphatase 208(H) 40 - 150 U/L 04/18/2020 4:45 AM CDT [facility] ALT 23 0 - 61 U/L 04/18/2020 4:45 AM CDT [facility] AST 29 5 - 34 U/L 04/18/2020 4:45 AM CDT [facility] Protein Total 4.4(L) 6.4 - 8.3 gm/dL 04/18/2020 4:45 AM CDT [facility] Albumin 2.3(L) 3.5 - 5.2 gm/dL 04/18/2020 4:45 AM CDT [facility] Bilirubin Total 0.4 0.2 - 1.0 mg/dL 04/18/2020 4:45 AM CDT [facility] eGFR by MDRD >60 >60 mL/min/1.7 3m2 04/18/2020 4:45 AM CDT [facility] eGFR by MDRD >60 >60 mL/min/1.7 3m2 04/18/2020 4:45 AM CDT [facility] Blood BLOOD SPECIMEN / Unknown Venipuncture / Unknown 04/18/2020 4:13 AM CDT 04/18/2020 4:16 AM CDT Mayuri Norton MD LAB - CHEMISTRY MIRI GO Performing Organization Address [facility] Co de Phone Number [facility] [address] [place] [address] * PTT (04/18/2020 4:13 AM CDT) PTT 38.1 23.0 - 38.4 sec 04/18/2020 4:34 AM CDT [facility] Blood BLOOD SPECIMEN / Unknown Venipuncture / Unknown 04/18/2020 4:13 AM CDT 04/18/2020 4:16 AM CDT Narrative [facility] - 04/18/2020 4:34 AM CDT Heparin Therapeutic Range for PTT: ??71.0 - 109.0 seconds. Annabella Johnson MD LAB - COAGULATION OR DERABLES Performing Organization Address [facility] de Phone Number [facility] [address] [place] [address] * (ABNORMAL) PT-INR (04/18/2020 4:13 AM CDT) PT 15.6(H) 12.1 - 14.8 sec 04/18/2020 4:33 AM CDT [facility] INR 1.3(H) 0.9 - 1.1 04/18/2020 4:33 AM CDT [facility] Blood BLOOD SPECIMEN / Unknown Venipuncture / Unknown 04/18/2020 4:13 AM CDT 04/18/2020 4:16 AM CDT Narrative [facility] - 04/18/2020 4:33 AM CDT Conventional Warfarin Anticoagulant Therapy: INR Reference Range: ??2.0-3.0 Intensive Warfarin Anticoagulant Therapy: INR Reference Range: ? 2.5-3.5 Annabella Johnson MD LAB - COAGULATION OR DERABLES Performing Organization Address City/[facility]/ZIP Co de Phone Number [facility] [address] [place] [address] * FIBRINOGEN ACTIVITY (04/18/2020 4:13 AM CDT) [facility] Fibrinogen 238 200 - 400 mg/dL 04/18/2020 4:34 AM CDT [facility] Blood BLOOD SPECIMEN / Unknown Venipuncture / Unknown 04/18/2020 4:13 AM CDT 04/18/2020 4:16 AM CDT Annabella Johnson MD LAB - COAGULATION OR DERABLES [facility] [address] [place] [address] * (ABNORMAL) CBC W AUTO DIFFERENTIAL (04/18/2020 4:13 AM CDT) [facility] WBC 19.5(H) 4.4 - 10.7 x10E9/L 04/18/2020 4:[facility] W[facility] Corrected 04/18/2020 4:[facility] RBC 2.04(L) 3.80 - 5.20 x10E12/L 04/18/2020 4:30 AM CDT [facility] Hemoglobin 5.4(LL) 12.0 - 15.6 gm/dL 04/18/2020 4:30 AM T [facility] Hematocrit 17.6(LL) 35.9 - 45.5 % 04/18/2020 4:30 AM [facility] MCV 86.3 80.7 - 98.3 fl 04/18/2020 4:30 AM [facility] MCH 26.5(L) 26.7 - 34.0 pg 04/18/2020 4:30 AM CDT [facility] MCHC 30.7(L) 30.8 - 35.9 gm/dL 04/18/2020 4:30 AM CDT [facility] Platelet Count 42(LL) 153 - 416 x10E9/L 04/18/2020 4:30 AM [facility] RDW-CV 19.7(H) 12.1 - 14.9 % 04/18/2020 4:[facility] Neutrophils % 88.8(H) 44.0 - 73.0 % 04/18/2020 4:30 AM CDT [facility] Lymphocytes % 6.4(L) 20.0 - 43.0 % 04/18/2020 4:30 AM CDT [facility] Monocytes % 1.8(L) 5.0 - 13.0 % 04/18/2020 4:30 AM CDT [facility] Eosinophils % 0.1 0.0 - 6.0 % 04/18/2020 4:30 AM CDT [facility] Basophils % 0.3 0.0 - 2.0 % 04/18/2020 4:30 AM CDT [facility] Immature Granulocytes 2.6(H) 0 - 1 % 04/18/2020 4:30 AM CDT [facility] Neutrophil Absolute 17.28(H) 2.01 - 7.14 x10E9/L 04/18/2020 4:30 AM CDT [facility] Lymphocytes Absolute 1.25 1.07 - 3.94 x10E9/L 04/18/2020 4:30 AM CDT [facility] Monocytes Absolute 0.35 0.26 - 1.07 x10E9/L 04/18/2020 4:30 AM CDT [facility] Eosinophils Absolute 0.01 0 - 0.47 x10E9/L 04/18/2020 4:30 AM CDT [facility] Basophils Absolute 0.05 0 - 0.08 x10E9/L 04/18/2020 4:30 AM CDT [facility] Immature Granulocytes Absolute 0.51(H) 0.00 - 0.06 x10E9/L 04/18/2020 4:30 AM CDT [facility] nRBC Auto 0 /100 WBC 04/18/2020 4:30 AM CDT [facility] Blood BLOOD SPECIMEN / Unknown Venipuncture / Unknown 04/18/2020 4:13 AM CDT 04/18/2020 4:16 AM CDT Annabella Johnson MD LAB - HEMATOLOGY ORD ERABLES [facility] [address] [place] [address] * (ABNORMAL) BLOOD GASES CORD [...] Venous 26 % 04/18/2020 3:26 AM CDT [facility] Aamir's Test N/A 04/18/2020 3:26 AM CDT [facility] Sample Site Other 04/18/2020 3:26 AM CDT [facility] Sample Type Cord Blood Venous 04/18/2020 3:26 AM CDT [facility]ER[facility] Medical Office Secretary ID [id number] 04/18/2020 3:26 AM CDT [facility] Notified Who jerrod studio sales associate 04/18/2020 3:26 AM CDT [facility] Notification Time 04/18/2020 03:26 04/18/2020 3:26 AM CDT [facility] Notified By octavia morrissey 04/18/2020 3:26 AM CDT [facility] Blood CORD BLOOD SPECIMEN / Unknown 04/18/2020 3:12 AM CDT 04/18/2020 3:12 AM CDT Afsaneh Sandoval MD LAB - BLOOD GASES OR DERABLES [facility] [address] [place] [address] * (ABNORMAL) BLOOD GASES CORD ARTERIAL (04/18/2020 3:12 AM CDT) pH Cord Arterial 6.92(LL) 7.20 - 7.34 pH 04/18/2020 3:27 AM CDT [facility] Comment:LL pCO2 Cord Arterial 89(HH) 45 - 55 mm hg 04/18/2020 3:27 AM CDT [facility] Comment:HH pO2 Cord Arterial 04/18/2020 3:27 AM CDT [facility] Comment:< HCO3 Cord Arterial 18.0(L) 22.0 - 24.0 mmol/L 04/18/2020 3:27 AM CDT [facility] Comment:L BE Cord Arterial -16.3 mmol/L 04/18/20 20 3:27 AM CDT [facility] O2 Saturation Cord Arterial 04/18/2020 3:27 AM CDT [facility] Comment:< Aamir's Test N/A 04/18/2020 3:27 AM CDT [facility] Sample Site Other 04/18/2020 3:27 AM CDT [facility] Sample Type Cord blood Arterial 04/18/2020 3:27 AM CDT [facility]ER[facility] Medical Office Secretary ID [id number] 04/18/2020 3:27 AM CDT [facility] Notified Renea elder studio sales associate 04/18/2020 3:27 AM CDT [facility] Notification Time 04/18/2020 03:27 04/18/2020 3:27 AM CDT [facility] Notified By octavia morrissey 04/18/2020 3:27 AM CDT [facility] Blood, arterial CORD BLOOD SPECIMEN / Unknown 04/18/2020 3:12 AM CDT 04/18/2020 3:12 AM CDT Afsaneh Sandoval MD LAB - BLOOD GASES OR DERABLES Performing Organization Address City/State/[facility] Co de Phone Number [facility] [address] [place] [address] * (ABNORMAL) BLOOD GASES CORD ARTERIAL (04/18/2020 3:07 AM CDT) pH Cord Arterial 7.08(L) 7.20 - 7.34 pH 04/18/2020 3:24 AM CDT [facility] Comment:LL pCO2 Cord Arterial 64(H) 45 - 55 mm hg 04/18/2020 3:24 AM CDT [facility] Comment:H pO2 Cord Arterial 14 [...] 04/18/2020 3:24 AM CDT [facility] RESP THERAPY Medical Office Secretary ID [id number] 04/18/2020 3:24 AM CDT [facility] Notified Renea elder studio sales associate 04/18/2020 3:24 AM CDT [facility] RESP THERAP[facility] [...] BLOOD GASES OR DERABLES Performing Organization Address City/State/[facility] Co de Phone Number [facility] [address] [phone] * (ABNORMAL) BLOOD GASES CORD JEREMY (04/18/2020 [...] - 24 mmol/L 04/18/2020 3:23 AM CDT [facility] Comment:L BE Cord Venous -13.1 mmol/L 04/18/2020 3:23 AM CDT [facility] O2 Saturation Cord Venous 54 % 04/18/2020 3:23 AM CDT [facility] Aamir's Test N/A 04/18/2020 3:23 AM CDT [facility] Sample Site Other 04/18/2020 3:23 AM CDT [facility] Sample Type Cord Blood Venous 04/18/2020 3:23 AM CDT [facility] Medical Office Secretary ID [id number] 04/18/2020 3:23 AM CDT [facility] Notification Time 04/18/2020 03:23 04/18/2020 3:23 AM CDT [facility] Blood CORD BLOOD SPECIMEN / Unknown 04/18/2020 3:07 AM CDT 04/18/2020 3:07 AM CDT Narrative [facility] - 04/18/2020 3:23 AM CDT baby a Afsaneh Sandoval MD LAB - BLOOD GASES OR DERABLES Performing Organization Address [facility] Co de Phone Number [facility] [address] [place] [address] * PTT (04/18/2020 12:53 AM CDT) PTT 33.4 23.0 - 38.4 sec 04/18/2020 1:29 AM CDT [facility] Blood BLOOD SPECIMEN / Unknown Venipuncture / Unknown 04/18/2020 12:53 AM CDT 04/18/2020 1:14 AM CDT Narrative [facility] - 04/18/2020 1:29 AM CDT Heparin Therapeutic Range for PTT: ??71.0 - 109.0 seconds. Annabella Johnson MD LAB - COAGULATION OR DERABLES Performing Organization Address [facility] Co de Phone Number [facility] [address] [place] [address] * PT-INR (04/18/2020 12:53 AM CDT) PT 13.1 12.1 - 14.8 sec 04/18/2020 1:28 AM CDT [facility] INR 1.0 0.9 - 1.1 04/18/2020 1:28 AM CDT [facility] Blood BLOOD SPECIMEN / Unknown Venipuncture / Unknown 04/18/2020 12:53 AM CDT 04/18/2020 1:14 AM CDT Narrative [facility] - 04/18/2020 1:28 AM CDT Conventional Warfarin Anticoagulant Therapy: INR Reference Range: ??2.0-3.0 Intensive Warfarin Anticoagulant Therapy: INR Reference Range: ? 2.5-3.5 Annabella Johnson MD LAB - COAGULATION OR DERABLES Performing Organization Address City/[facility] Co de Phone Number [facility] [address] [place], [place] [id number] * FIBRINOGEN ACTIVITY (04/18/2020 12:53 AM CDT) [facility] Fibrinogen 345 200 - 400 mg/dL 04/18/2020 1:29 AM CDT [facility] Blood BLOOD SPECIMEN / Unknown Venipuncture / Unknown 04/18/2020 12:53 AM CDT 04/18/2020 1:14 AM CDT Annabella Johnson MD LAB - COAGULATION OR DERABLES Performing Organization Address [facility] Co de Phone Number [facility] [address] [place], [place] [phone] * (ABNORMAL) CBC W AUTO DIFFERENTIAL (04/18/2020 12:53 AM CDT) [facility] WBC 16.6(H) 4.4 - 10.7 x10E9/L 04/18/2020 1:32 AM CDT [facility] WBC Corrected 04/18/2020 1:32 AM CDT [facility] RBC 3.71(L) 3.80 - 5.20 x10E12/L 04/18/2020 1:32 AM CDT [facility] Hemoglobin 10.0(L) 12.0 - 15.6 gm/dL 04/18/2020 1:32 AM CDT [facility] Hematocrit 30.7(L) 35.9 - 45.5 % 04/18/2020 1:32 AM CDT [facility] MCV 82.7 80.7 - 98.3 fl 04/18/2020 1:32 AM CDT [facility] MCH 27.0 26.7 - 34.0 pg 04/18/2020 1:32 AM CDT [facility] MCHC 32.6 30.8 - 35.9 gm/dL 04/18/2020 1:32 AM CDT [facility] Platelet Count 29(LL) 153 - 416 x10E9/L 04/18/2020 1:[address] [facility] RDW-CV 19.5(H) 12.1 - 14.9 % 04/18/2020 1:32 AM [facility] Neutrophils % 90.5(H) 44.0 - 73.0 % 04/18/2020 1:32 AM [facility] Lymphocytes % 4.0(L) 20.0 - 43.0 % 04/18/2020 1:32 AM [facility] Monocytes % 3.7(L) 5.0 - 13.0 % 04/18/2020 1:32 AM [facility] Eosinophils % 0.2 0.0 - 6.0 % 04/18/2020 1:32 AM T [facility] Basophils % 0.3 0.0 - 2.0 % 04/18/2020 1:32 AM T [facility] Immature Granulocytes 1.3(H) 0 - 1 % 04/18/2020 1:32 AM T [facility] Neutrophil Absolute 14.97(H) 2.01 - 7.14 x10E9/L 04/18/2020 1:32 AM T [facility] Lymphocytes Absolute 0.67(L) 1.07 - 3.94 x10E9/L 04/18/2020 1:32 AM CDT [facility] Monocytes Absolute 0.61 0.26 - 1.07 x10E9/L 04/18/2020 1:32 AM CDT [facility] Eosinophils Absolute 0.04 0 - 0.47 x10E9/L 04/18/2020 1:32 AM CDT [facility] Basophils Absolute 0.05 0 - 0.08 x10E9/L 04/18/2020 1:32 AM CDT [facility] Immature Granulocytes Absolute 0.22(H) 0.00 - 0.06 x10E9/L 04/18/2020 1:32 AM CDT [facility] nRBC Auto 0 /100 WBC 04/18/2020 1:32 AM CDT [facility] Blood BLOOD SPECIMEN / Unknown Venipuncture / Unknown 04/18/2020 12:53 AM CDT 04/18/2020 1:14 AM CDT Annabella Johnson MD LAB - HEMATOLOGY ORD ERABLES [facility] [address] [place] [phone] * (ABNORMAL) URINE MICROSCOPIC ONLY (04/17/2020 8:57 PM CDT) RBC UA >100(A) None Seen, 0-2, 3-5 # /hpf 04/17/2020 9:47 PM CDT [facility] WBC UA 6-10(A) None Seen, 0-5 # /hpf 04/17/2020 9:47 PM T [facility] Bacteria UA None Seen None Seen 04/17/2020 9:47 PM CDT [facility] Squamous Epithelial Cells 6-10(A) None Seen, 0-2, 3-5 /hpf 04/17/2020 9:47 PM CDT [facility] Urine URINE SPECIMEN OBTAINED BY CLEAN CATCH PROCEDURE / Unknown Collection / Unknown 04/17/2020 8:57 PM CDT 04/17/2020 9:08 PM CDT Narrative [facility] - 04/17/2020 9:47 PM CDT Annabella Johnson MD LAB - URINALYSIS ORD ERABLES [facility] [address] [place] [address] * PTT (04/17/2020 8:57 PM CDT) PTT 33.2 23.0 - 38.4 sec 04/17/2020 9:28 PM CDT [facility] Blood BLOOD SPECIMEN / Unknown Venipuncture / Unknown 04/17/2020 8:57 PM CDT 04/17/2020 9:08 PM CDT Narrative [facility] - 04/17/2020 9:28 PM CDT Heparin Therapeutic Range for PTT: ??71.0 - 109.0 seconds. Mayuri Norton MD LAB - COAGULATION OR DERABLES Performing Organization Address [facility] de Phone Number [facility] [address] [place], [place] [phone] * PT-INR (04/17/2020 8:57 PM CDT) Pathologist [facility] PT 13.2 12.1 - 14.8 sec 04/17/2020 9:27 PM CDT [facility] INR 1.1 0.9 - 1.1 04/17/2020 9:27 PM CDT [facility] Blood BLOOD SPECIMEN / Unknown Venipuncture / Unknown 04/17/2020 8:57 PM CDT 04/17/2020 9:08 PM CDT Narrative [facility] - 04/17/2020 9:27 PM CDT Conventional Warfarin Anticoagulant Therapy: INR Reference Range: ??2.0-3.0 Intensive Warfarin Anticoagulant Therapy: INR Reference Range: ? 2.5-3.5 Mayuri Norton MD LAB - COAGULATION OR DERABLES Performing Organization Address [facility] de Phone Number [facility] [address] [place] [address] * (ABNORMAL) COMPREHENSIVE METABOLIC PANEL (04/17/2020 8:57 PM CDT) Glucose 67(L) 70 - 105 mg/dL 04/17/2020 9:39 PM CDT [facility] Sodium 138 136 - 145 mmol/L 04/17/2020 9:39 PM CDT [facility] Potassium 4.3 3.5 - 5.1 mmol/L 04/17/2020 9:39 PM CDT [facility] Chloride 112(H) 98 - 107 mmol/L 04/17/2020 9:39 PM CDT [facility] CO2 16(L) 23 - 31 mmol/L 04/17/2020 9:39 PM CDT [facility] Calcium 7.8(L) 8.4 - 10.4 mg/dL 04/17/2020 9:39 PM CDT [facility] Anion Gap 10 8 - 16 mmol/L 04/17/2020 9:39 PM CDT [facility] BUN 21(H) 7 - 18.7 mg/dL 04/17/2020 9:39 PM CDT [facility] Creatinine 1.07 0.57 - 1.11 mg/dL 04/17/2020 9:39 PM CDT [facility] Alkaline Phosphatase 334(H) 40 - 150 U/L 04/17/2020 9:39 PM CDT [facility] ALT 30 0 - 61 U/L 04/17/2020 9:39 PM CDT [facility] AST 40(H) 5 - 34 U/L 04/17/2020 9:39 PM CDT [facility] Protein Total 5.3(L) 6.4 - 8.3 gm/dL 04/17/2020 9:39 PM CDT [facility] Albumin 2.7(L) 3.5 - 5.2 gm/dL 04/17/2020 9:39 PM CDT [facility] Bilirubin Total 0.3 0.2 - 1.0 mg/dL 04/17/2020 9:39 PM CDT [facility] eGFR by MDRD 60(L) >60 mL/min/1.7 3m2 04/17/2020 9:39 PM CDT [facility] eGFR by MDRD >60 >60 mL/min/1.7 3m2 04/17/2020 9:39 PM CDT [facility] Blood BLOOD SPECIMEN / Unknown Venipuncture / Unknown 04/17/2020 8:57 PM CDT 04/17/2020 9:09 PM CDT Mayuri Norton MD LAB - CHEMISTRY MIRI GO [facility] Organization Address City/State/ZIP Co de Phone Number [facility] [address] [place] [address] * (ABNORMAL) RUBELLA ANTIBODY IGG (04/17/2020 8:57 PM CDT) Rubella Antibody <0.90(L) Immune >0.99 index 04/19/2020 7:09 AM CDT [facility] ([facility]) Comment: ?Non-immune ? <0.90 ?Equivocal ??0.90 - 0.99 ?Immune ? >0.99 Blood BLOOD SPECIMEN / Unknown Venipuncture / Unknown 04/17/2020 8:57 PM CDT 04/17/2020 9:09 PM CDT [facility]ative [facility] - 04/19/2020 7:09 AM CDT Performed at: ??01 - [facility] [address] [place], [place] ??[id number] [employer]: Tyrone Rider PhD, Phone: ??[phone] Mayuri Norton MD LAB - SEROLOGY ORDER CRUZITO Performing Organization Address City/[facility] Co de Phone Number [facility] ([facility]) [address] [place] [address] * SYPHILIS ANTIBODY CASCADING REFLEX (04/17/2020 8:57 PM CDT) Treponema pallidum Antibody Non Reactive Non Reactive 04/17/2020 10:02 PM CDT [facility] Comment: No Laboratory evidence of syphilis infection. ?? Note: ??Circulating antibodies may be low or undetectable in early infection. ??If recent exposure is suspected, re-draw sample in 2-4 weeks and repeat testing. Blood BLOOD SPECIMEN / Unknown Venipuncture / Unknown 04/17/2020 8:57 PM CDT 04/17/2020 9:09 PM CDT Mayuri Norton MD LAB - SEROLOGY ORDER CRUZITO Performing Organization Address City/[facility]/ZIP Co de Phone Number [facility] [address] [place] [address] * HIV-1 HIV-2 ANTIBODY + HIV P24 AG PANEL (04/17/2020 8:57 PM CDT) [facility] HIV1/2 Ab + P24 Ag Non Reactive Non Reactive 04/17/2020 10:02 PM CDT [facility] Blood BLOOD SPECIMEN / Unknown Venipuncture / Unknown 04/17/2020 8:57 PM CDT 04/17/2020 9:09 PM CDT Narrative [facility] - 04/17/2020 10:02 PM CDT No Laboratory evidence of HIV infection. Mayuri Norton MD LAB - CHEMISTRY ORDE RABLES [facility] [address] [place] [id number] * FIBRINOGEN ACTIVITY (04/17/2020 8:57 PM CDT) [facility] Fibrinogen 325 200 - 400 mg/dL 04/17/2020 9:48 PM CDT [facility] Blood BLOOD SPECIMEN / Unknown Venipuncture / Unknown 04/17/2020 8:57 PM CDT 04/17/2020 9:08 PM CDT Mayuri Norton MD LAB - COAGULATION OR DERABLES Performing Organization Address City/[facility]/ZIP Co de Phone Number [facility] [address] [place] [phone] * (ABNORMAL) CULTURE URINE (04/17/2020 8:57 PM CDT) [facility] Culture Urine 50,000-100,000 CFU/mL Escherichia coli(A) BERT 04/19/2020 10:33 AM CDT [facility] Culture Urine 50,000-100,000 CFU/mL Streptococcus agalactiae (Group B)(A) 04/19/2020 10:33 AM CDT [facility] Culture Urine 50,000-100,000 CFU/mL urogenital aneudy BERT 04/19/2020 10:33 AM CDT [facility] Urine URINE SPECIMEN OBTAINED BY CLEAN CATCH PROCEDURE / Unknown Collection / Unknown 04/17/2020 8:57 PM CDT 04/17/2020 9:08 PM CDT Narrative [facility] - 04/19/2020 10:33 AM CDT [...] Johnson MD LAB - MICROBIOLOGY O RDERABLES [facility] [address] [place] [address], [facility] [phone] * (ABNORMAL) URINALYSIS REFLEX TO MICROSCOPIC NO CULTURE (04/17/2020 8:57 PM CDT) [facility] Signature Color UA Yellow Straw, Yellow 04/17/2020 9:18 PM CDT [facility] Clarity UA Slt Cloudy(A) Clear 04/17/2020 9:18 PM CDT [facility] Glucose UA Negative Negative 04/17/2020 9:18 PM CDT [facility] Bilirubin UA Negative Negative 04/17/2020 9:18 PM CDT [facility] Ketone UA Negative Negative 04/17/2020 9:18 PM CDT [facility] Specific [place] UA 1.015 1.005 - 1.030 04/17/2020 9:18 PM CDT [facility] Blood UA 3+(A) Negative 04/17/2020 9:18 PM CDT [facility] pH UA 6.0 5.0 - 8.0 pH 04/17/2020 9:18 PM CDT [facility] Protein UA 1+(A) Negative 04/17/2020 9:18 PM CDT [facility] Urobilinogen UA Negative Negative mg/dL 04/17/2020 9:18 PM CDT [facility] Nitrite UA Negative Negative 04/17/2020 9:18 PM CDT [facility] Leukocyte UA Negative Negative 04/17/2020 9:18 PM CDT [facility] Urine Microscopy Urine microscopy to follow 04/17/2020 9:18 PM CDT [facility] Urine URINE SPECIMEN OBTAINED BY CLEAN CATCH PROCEDURE / Unknown Collection / Unknown 04/17/2020 8:57 PM CDT 04/17/2020 9:08 PM CDT Narrative [facility] - 04/17/2020 9:18 PM CDT Annabella Johnson MD LAB - URINALYSIS ORD ERABLES [facility] [address] [place] [address] * (ABNORMAL) DRUG SCREEN TOX URINE PANEL (04/17/2020 8:57 PM CDT) [facility] Amphetamines Screen Urine Detected(A) Not detected 04/17/2020 9:38 PM CDT [facility] Barbiturates Screen Urine Not detected Not detected 04/17/2020 9:38 PM CDT [facility] Benzodiazepines Screen Urine Not detected Not detected 04/17/2020 9:38 PM CDT [facility] [facility] Cannabinoids Screen Urine Not detected Not detected 04/17/2020 9:38 PM CDT [facility] Cocaine Screen Urine Not detected Not detected 04/17/2020 9:38 PM CDT [facility] Fentanyl Urine Not detected Not detected 04/17/2020 9:38 PM CDT [facility] Methadone Screen Urine Not detected Not detected 04/17/2020 9:38 PM CDT [facility] Opiate Screen Urine Not detected Not detected 04/17/2020 9:38 PM CDT [facility] Phencyclidine Screen Urine Not detected Not detected 04/17/2020 9:38 PM CDT [facility] Urine URINE / Unknown Collection / Unknown 04/17/2020 8:57 PM CDT 04/17/2020 9:08 PM CDT Narrative [facility] - 04/17/2020 9:38 PM CDT [...] MD LAB - URINE CHEMISTR Y ORDERABLES [facility] [address] [place] [address] * BLOOD TYPE VERIFICATION (04/17/2020 8:24 PM CDT) ABO Rh A POS 04/17/2020 8:4 7 PM CDT [facility] Blood Bank BLOOD SPECIMEN / Unknown Venipuncture / Unknown 04/17/2020 8:24 PM CDT 04/17/2020 8:24 PM CDT Phuong Frazier MD LAB - BLOOD BANK OR DERABLES Performing Organization Address City/[facility]/ZIP Co de Phone Number [facility] [address] [phone] * PREPARE (CROSSMATCH) RBC UNIT(S), 1 Units (04/17/2020 8:12 PM CDT) Unit Description AS1 LR PRBC [facility] Unit ABO A [facility] Unit Rh POS [facility] Product [facility] R02 [facility] Unit Donor # [id number] [facility] BLOOD [facility] LAB Unit Status released [facility] OD BANK LAB Product Code [id number] [facility] Blood Type Barcode 6200 [facility] Expiration Date [facility] Unit Description AS1 LR PRBC [facility] Unit ABO A [facility] Unit Rh POS [facility] Product Number R02 [facility] Unit Donor # [id number] [facility] Unit Status transfused [facility] Product [facility] [id number] [facility] Blood Type Barcode 6200 [facility] Expiration Date [facility] Blood Bank BLOOD SPECIMEN / Unknown 04/17/2020 8:12 PM CDT 04/17/2020 8:16 PM CDT Shayna Chirinos MD LAB - BLOOD BANK ORDERABLES [facility] [address] [phone] * PREPARE (CROSSMATCH) RBC UNIT(S), 1 Units (04/17/2020 8:12 PM CDT) Unit Description AS1 LR PRBC [facility] Unit ABO A [facility] Unit Rh POS [facility] Product Number R02 [facility] Unit Donor # [id number] [facility]OD [facility] Unit Status released [facility] BLO OD [facility]ANK LAB Product Code [id number] [facility] Blood Type Barcode 6200 [facility] Expiration Date [facility] Unit Description AS1 LR PRBC [facility] Unit ABO A [facility] Unit Rh POS [facility] Product Number R02 [facility] Unit Donor # [id number] [facility] C BLOOD BANK LAB Unit Status transfused [facility]OD [facility] Product Code [id number] [facility] BL OOD BANK LAB Blood Type Barcode 6200 [facility] Expiration Date [facility] Blood Bank BLOOD SPECIMEN / Unknown 04/17/2020 8:12 PM CDT 04/17/2020 8:16 PM CDT Marisa James MD LAB - BLOOD BANK ORD ERABLES [facility] [address] [phone] * PATHOLOGY PERIPHERAL SMEAR REVIEW (04/17/2020 8:12 PM CDT) Case Report Pathology Interpretation Report ? Case: [id number] ? Authorizing Provider: ??Heraclio Dave MD ? Collected: ? 04/17/2020 08:12 PM ? Ordering Location: ? HC 4 ICU MEDICAL ? Received: ?04/18/2020 08:36 AM ? Pathologist: ? Kathleen Clay, ? MD ? Specimen: ?Blood ? 04/18/2020 2:22 PM CDT [facility] Final Diagnosis Final diagnosis: - WBC [...] correlation is advised. 04/18/2020 2:22 PM CDT [facility] Blood BLOOD SPECIMEN / Unknown 04/17/2020 8:12 PM CDT 04/18/2020 8:36 AM CDT Heraclio Dave MD LAB - PATHOLOGY/CYTO LOGY ORDERABLES [facility] [address] [place] [address] * PREPARE CRYOPRECIPITATE UNIT (S), 2 Units (04/17/2020 8:12 PM CDT) Unit Description Thawed Cryp Clsd [facility] Unit ABO A [facility] Unit Rh POS [facility] Product [facility] [id number] [facility] Unit Donor # [id number] [facility] Unit Status transfused [facility] Product Code [id number] [facility] Blood Type Barcode 6200 [facility]piration Date [facility] Unit Description Thawed Cryp Clsd [facility] Unit ABO A [facility] Unit Rh POS [facility] Product Number [id number] [facility] Unit Donor # [id number] [facility] Unit Status transfused [facility] Product Code [id number] [facility] Blood Type Barcode 6200 [facility] Expiration Date [facility] BLOOD [facility] LAB Blood Bank BLOOD SPECIMEN / Unknown 04/17/2020 8:12 PM CDT 04/17/2020 8:16 PM CDT Phuong Frazier MD LAB - BLOOD BANK OR DERABLES [facility] [address] [phone] * PREPARE (CROSSMATCH) RBC UNIT(S), 2 Units (04/17/2020 8:12 PM CDT) Unit Description AS1 LR PRBC [facility] Unit ABO A [facility] Unit Rh POS [facility] Product Number R02 [facility] Unit Donor # [id number] [facility] Unit Status released [facility] Product Code [id number] [facility] Blood Type Barcode 6200 [facility] Expiration Date [facility] Unit Description AS1 LR PRBC [facility] Unit ABO A [facility] Unit Rh POS [facility] Product [facility] R02 [facility] Unit Donor # [id number] [facility] Unit Status released [facility] OD [facility]ANK [facility] Product Code [id number] [facility] Blood Type Barcode 6200 [facility] Expiration Date [id number] [facility] Unit Description AS1 LR PRBC [facility] Unit ABO A [facility] Unit Rh POS [facility] Product [facility] R02 [facility] Unit Donor # [id number] [facility] Unit Status released [facility] Product Code [id number] [facility] Blood Type Barcode 6200 [facility] Expiration Date [id number] [facility] Unit Description AS1 LR PRBC [facility] Unit ABO A [facility] Unit Rh POS [facility] Product [facility] R02 [facility] Unit Donor # [id number] [facility] Unit Status released [facility] Product Code [id number] [facility] Blood Type Barcode 6200 [facility] Expiration Date [id number] [facility] Unit Description AS1 LR PRBC [facility] Unit ABO A [facility] Unit Rh POS [facility] Product Number R44 [facility] Unit Donor # [id number] [facility] Unit Status transfused [facility] Product Code [id number] [facility] OOD [facility] LAB Blood Type Barcode 6200 [facility] Expiration Date [id number] [facility] Blood Bank BLOOD SPECIMEN / Unknown 04/17/2020 8:12 PM CDT 04/17/2020 8:16 PM CDT Mayuri Norton MD LAB - BLOOD BANK ORD ERABLES [facility] [address] [phone] * PREPARE (CROSSMATCH) RBC UNIT(S), 1 Units (04/17/2020 8:12 PM CDT) Unit Description AS1 LR PRBC [facility] Unit ABO A [facility] Unit Rh POS [facility] Product Number R02 [facility] Unit Donor # [id number] [facility] Unit Status transfused [facility] Product [facility] [id number] [facility] Blood Type Barcode 6200 [facility] Expiration Date [facility] Blood Bank BLOOD SPECIMEN / Unknown 04/17/2020 8:12 PM CDT 04/17/2020 8:16 PM CDT Mayuri Norton MD LAB - BLOOD BANK ORD ERABLES [facility] [address] [place] [address] * PREPARE FFP UNIT(S), 1 Units (04/17/2020 8:12 PM CDT) Unit Description Thawed Plasma 5D [facility] Unit ABO AB [facility] Unit Rh POS [facility] Product Number [id number] [facility] Unit Donor # [id number] [facility] Unit Status released [facility] Product [facility] [id number] [facility] Blood Type Barcode 8400 [facility] Expiration Date [facility]OD [facility] Unit Description Thawed Plasma 5D [facility] Unit ABO AB [facility] Unit Rh POS [facility] Product [facility] [id number] [facility] Unit Donor # [id number] [facility] Unit Status transfused [facility] Product [facility] [id number] [facility] Blood Type Barcode 8400 [facility] Expiration Date [facility] Unit Description Thawed Plasma 5D [facility] Unit ABO AB [facility] Unit Rh POS [facility] Product Number [id number] [facility] Unit Donor # [id number] [facility] Unit Status transfused [facility] Product Code [id number] [facility] Blood Type Barcode 8400 [facility] Expiration Date [id number] [facility] Blood Bank BLOOD SPECIMEN / Unknown 04/17/2020 8:12 PM CDT 04/17/2020 8:16 PM CDT Afsaneh Sandoval MD LAB - BLOOD BANK ORD ERABLES [facility] [address] [phone] * PREPARE PLATELET PHERESIS UNIT(S), 2 Units (04/17/2020 8:12 PM CDT) Unit Description LR PLT Pher IRR [facility] Unit ABO AB [facility] Unit Rh POS [facility] Product Number P14 [facility] Unit Donor # [id number] [facility] Unit Status transfused [facility] OOD [facility] Product Code [id number] [facility]OD [facility] Blood Type Barcode 8400 [facility] Expiration Date [facility] Unit Description LR PLT Pheresis [facility] Unit ABO A [facility] Unit Rh POS [facility] Product Number P01 [facility] Unit Donor # [id number] [facility] Unit Status released [facility] OD [facility]ANK [facility] Product Code [id number] [facility] OOD [facility] Blood Type Barcode 6200 [facility] Expiration Date [id number] [facility] Unit Description LR PLT Pheresis [facility] Unit ABO A [facility] Unit Rh POS [facility] Product Number P04 [facility] Unit Donor # [id number] [facility] Unit Status released [facility] Product Code [id number] [facility] OOD [facility] Blood Type Barcode 6200 [facility] Expiration Date [facility] BLOOD [facility] LAB Blood Bank BLOOD SPECIMEN / Unknown 04/17/2020 8:12 PM CDT 04/17/2020 8:16 PM CDT Afsaneh Sandoval MD LAB - BLOOD BANK ORD ERABLES Performing Organization Address City/[facility]/ZIP Co de Phone Number [facility] [address] [place] [address] * PREPARE PLATELET PHERESIS UNIT(S), 2 Units (04/17/2020 8:12 PM CDT) [facility] Unit Description LR PLT Pheresis [facility] Unit ABO A [facility] Unit Rh POS [facility] Product [facility] P02 [facility] Unit Donor [facility] [id number] [facility] BLOOD [facility] Unit Status transfused [facility] Product Code [id number] [facility] Blood Type Barcode 6200 [facility] Expiration Date [id number] [facility] Blood Bank BLOOD SPECIMEN / Unknown 04/17/2020 8:12 PM CDT 04/17/2020 8:16 PM CDT Mayuri Norton MD LAB - BLOOD BANK ORD ERABLES Performing Organization Address [facility]/ZIP Co de Phone Number [facility] BLOOD [facility] [address] [place] [address] * (ABNORMAL) SLIDE SCAN HEMATOLOGY (04/17/2020 8:12 PM CDT) [facility] Platelet Estimation Markedly decreased(A ) Normal, Adequate platelets 04/17/2020 8:39 PM CDT [facility] Anisocytosis 1+(A) None 04/17/2020 8:39 PM CDT [facility] Blood BLOOD SPECIMEN / Unknown Venipuncture / Unknown 04/17/2020 8:12 PM CDT 04/17/2020 8:16 PM CDT Annabella Johnson MD LAB - HEMATOLOGY ORD ERABLES [facility] [address] [place] [address] * PREPARE PLATELET PHERESIS UNIT(S), 2 Units (04/17/2020 8:12 PM CDT) Unit Description LR PLT Pheresis [facility] Unit ABO A [facility] Unit Rh POS [facility] Product Number P02 [facility] Unit Donor # [id number] [facility] Unit Status transfused [facility] Product Code [id number] [facility] Blood Type Barcode 6200 [facility]piration Date [facility]OD [facility] Unit Description LR PLT Pher IRR [facility] Unit ABO B [facility] Unit Rh POS [facility] Product Number P10 [facility] Unit Donor # [id number] [facility] Unit Status released [facility] Product [facility] [id number] [facility] Blood Type Barcode 7300 [facility] Expiration Date [facility] Unit Description LR PLT Pheresis [facility] Unit ABO A [facility] Unit Rh POS [facility] Product [facility] P02 [facility] Unit Donor # [id number] [facility] Unit Status transfused [facility] Product [facility] [id number] [facility] Blood Type Barcode 6200 [facility] Expiration Date [facility] Unit Description LR PLT Pheresis [facility] Unit ABO A [facility] Unit Rh POS [facility] Product Number P02 [facility] Unit Donor # [id number] [facility] Unit Status transfused [facility] Product [facility] [id number] [facility] Blood Type Barcode 6200 [facility] Expiration Date [facility] Unit Description LR PLT Pheresis [facility] Unit ABO A [facility] Unit Rh POS [facility] Product Number P02 [facility] Unit Donor # [id number] [facility] Unit Status transfused [facility] Product Code [id number] [facility] Blood Type Barcode 6200 [facility] Expiration Date [facility] Blood Bank BLOOD SPECIMEN / Unknown 04/17/2020 8:12 PM CDT 04/17/2020 8:16 PM CDT Annabella Johnson MD LAB - BLOOD BANK ORD ERABLES [facility] [address] [phone] * PREPARE (CROSSMATCH) RBC UNIT(S), 2 Units (04/17/2020 8:12 PM CDT) Unit Description AS1 LR PRBC [facility] Unit ABO A [facility] Unit Rh POS [facility] Product Number R02 [facility] Unit Donor # [id number] [facility] Unit Status transfused [facility] Product [facility] [id number] [facility] Blood Type Barcode 6200 [facility] Expiration Date [facility] Unit Description AS1 LR PRBC [facility] Unit ABO A [facility] Unit Rh POS [facility] Product Number R43 [facility] Unit Donor # [id number] [facility] Unit Status transfused [facility] Product Code [id number] [facility] Blood Type Barcode 6200 [facility] Expiration Date [id number] [facility] Unit Description AS1 LR PRBC [facility] Unit ABO A [facility] Unit Rh NEG [facility] Product [facility] R02 [facility] Unit Donor # [id number] [facility] Unit Status transfused [facility] Product [facility] [id number] [facility] Blood Type Barcode 0600 [facility] Expiration Date [facility] Unit Description AS5 LR PRBC [facility] Unit ABO A [facility] Unit Rh POS [facility] Product Number R22 [facility] Unit Donor # [id number] [facility] Unit Status transfused [facility] Product Code [id number] [facility] Blood Type Barcode 6200 [facility] Expiration Date [id number] [facility] Blood Bank BLOOD SPECIMEN / Unknown 04/17/2020 8:12 PM CDT 04/17/2020 8:16 PM CDT Annabella Johnson MD LAB - BLOOD BANK ORD ERABLES Performing Organization Address City/[facility]/ZIP Co de Phone Number [facility] [address] [place] [address] * TYPE + SCREEN PANEL (04/17/2020 8:12 PM CDT) Pathologist [facility] ABO Rh A POS 04/17/2020 8:47 PM CDT [facility] Antibody Screen NEG 0 8:47 PM CDT [facility] Blood Bank BLOOD SPECIMEN / Unknown Venipuncture / Unknown 04/17/2020 8:12 PM CDT 04/17/2020 8:16 PM CDT Annabella Johnson MD LAB - BLOOD BANK ORD ERABLES Performing Organization Address City/[facility] Co de Phone Number [facility] [address] [place] [address] * (ABNORMAL) CBC W AUTO DIFFERENTIAL (04/17/2020 8:12 PM CDT) WBC 7.9 4.4 - 10.7 x10E9/L 04/17/2020 8:26 PM CDT [facility] WBC Corrected 04/17/2020 8:26 PM CDT [facility] RBC 3.87 3.80 - 5.20 x10E12/L 04/17/2020 8:26 PM CDT [facility] Hemoglobin 10.1(L) 12.0 - 15.6 gm/dL 04/17/2020 8:26 PM CDT [facility] Hematocrit 31.8(L) 35.9 - 45.5 % 04/17/2020 8:26 PM CDT [facility] MCV 82.2 80.7 - 98.3 fl 04/17/2020 8:26 PM CDT [facility] MCH 26.1(L) 26.7 - 34.0 pg 04/17[facility]2020 8[facility] MCHC 31.8 30.8 - 35.9 gm/dL 04/17/2020 8: PM [facility] Platelet Count 30(LL) 153 - 416 x10E9/L 04/17/2020 8: PM [facility] RDW-CV 19.3(H) 12.1 - 14.9 % 04/17/2020 8: PM [facility] Neutrophils % 70.2 44.0 - 73.0 % 04/17/2020 8: PM [facility] Lymphocytes % 19.9(L) 20.0 - 43.0 % 04/17/2020 8: PM [facility] Monocytes % 6.7 5.0 - 13.0 % 04/17/2020 8: PM [facility] Eosinophils % 1.3 0.0 - 6.0 % 04/17/2020 8: PM [facility] Basophils % 0.5 0.0 - 2.0 % 04/17/2020 8: PM [facility] Immature Granulocytes 1.4(H) 0 - 1 % 04/17/2020 8: PM [facility] Neutrophil Absolute 5.54 2.01 - 7.14 x10E9/L 04/17/2020 8: PM [facility] Lymphocytes Absolute 1.57 1.07 - 3.94 x10E9/L 04/17/2020 8: PM [facility] Monocytes Absolute 0.53 0.26 - 1.07 x10E9/L 04/17/2020 8: PM [facility] Eosinophils Absolute 0.10 0 - 0.47 x10E9/L 04/17/2020 8: PM [facility] Basophils Absolute 0.04 0 - 0.08 x10E9/L 04/17/2020 8: PM [facility] Immature Granulocytes Absolute 0.11(H) 0.00 - 0.06 x10E9/L 04/17/2020 8: PM [facility] nRBC Auto 0 /100 WBC 04/17/2020 8:26 PM CDT [facility] Blood BLOOD SPECIMEN / Unknown Venipuncture / Unknown 04/17/2020 8:12 PM CDT 04/17/2020 8:16 PM CDT Annabella Johnson MD LAB - HEMATOLOGY ORD ERABLES [facility] [address] [phone] documented in this encounter Visit Diagnoses Diagnosis [...] Intracatheter, EVERY 8 HOURS, First dose on [facility] 04/19/20 at 1630, Until Discontinued, $ Given 04/20/2020 3:12 PM CDT 3 mL $ Given 04/20/2020 5:59 AM CDT 3 mL $ Given 04/19/2020 10:13 PM CDT 3 mL 0.9% NaCl injection 3 mL 3 mL, Intracatheter, EVERY 8 HOURS, First dose on [facility] 04/19/20 at 2300, Until Discontinued, Flush peripheral [...] CDT $ Given 04/18/2020 2:32 PM CDT lsuabkbdvp-tzryiefnqtums-bwsikjmb (FIORICET) 50-325-40 MG tablet 1 tablet 1 [...] assess for the following side effects: - 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
--- OUTSIDE RECORDS SUMMARY | 2024-07-11 09:48 | XMS_ITS | Encounter Summary ---
Author Organization [facility] Address [address] [place] [address] Care Team Providers Care Positive Printer Operator Name Role Phone Alejandro Blevins MD Primary Care Provider [phone]- [phone] Reason for Visit * Reason Onset Date Comments Results 01/25/2020 Encounter Details Date Type Department Care Team (Late st Contact Info) Description 01/25/[address] [facility] MATERNAL/ EVALUATION UNIT [address] [facility] [place] [address] Annabella Johnson MD [address] [place] [address] Results Social History Tobacco Use [...] Miscellaneous Notes * Telephone Encounter - Annabella Johnosn MD - 01/25/2020 10:31 AM CDT Attempted to call patient regarding urine culture positive for E Coli. No answer. Voicemail left asking patient to call clinic back. Annabella Johnson MD 01/25/2020 10:32 AM documented in this encounter Plan of Treatment Not on file documented as of this encounter Visit Diagnoses Not on filedocumented in this encounter Care Teams Positive Printer Operator Relationship Specialty Start Date End Date Alejandro Blevins MD [address] [place] [address] PCP - General Family Medicine 12/07/19 documented as of this encounter
--- OUTSIDE RECORDS SUMMARY | 2024-07-11 09:48 | XMS_ITS | Encounter Summary ---
Author Organization [facility] Address [address] [facility] [place] [address] Care Team Providers Care Patient Clerical Assistant Name Role Phone Alejandro Blevins MD Primary Care Provider [phone] Reason for Visit * Reason Onset Date Comments Pre Appointment Management 02/05/2020 Encounter Details Date Type Department Care Team (Late st Contact Info) Description 02/05/2020 Telephone [facility] MATERNAL/ EVALUATION UNIT [address] [facility] [place] [address] Radha Patino RDMS Pre Appointment Management Social [...] screening at the door. Left callback of [phone]. documented in this encounter Plan of Treatment Not on file documented as of this encounter Visit Diagnoses Not on filedocumented in this encounter Care Teams Patient Clerical Assistant Relationship Specialty Start Date End Date Alejandro Blevins MD [address] [place] [phone] PCP - General Family Medicine 12/07/19 documented as of this encounter
--- OUTSIDE RECORDS SUMMARY | 2024-07-11 09:48 | XMS_ITS | Encounter Summary ---
Author Organization [facility] Address [address] [facility] [place] [address] Care Team Providers Care Handle Rounder Operator Name Role Phone Alejandro Blevins MD Primary Care Provider [phone] Reason for Visit * Reason Onset Date Comments UTI 01/26/2020 Encounter Details Date Type Department Care Team (Late st Contact Info) Description 01/26/2020 Telephone [facility] PHYS OB [address] [place] [address] Asa Louis MD [address] [place] [address] UTI Social History Tobacco Use [...] on filedocumented in this encounter Care Teams Handle Rounder Operator Relationship Specialty Start Date End Date Alejandro Blevins MD [address] [place] [phone] PCP - General Family Medicine 12/07/19 documented as of this encounter
--- OUTSIDE RECORDS SUMMARY | 2024-07-11 09:48 | XMS_ITS | Encounter Summary ---
Author Organization [facility] Address [address] [facility] [place] [address] Care Team Providers Care On Air Talent Name Role Phone Alejandro Blevins MD Primary Care Provider [phone]- [phone] Reason for Visit * Reason Onset Date Comments Results 01/23/2020 Encounter Details Date Type Department Care Team (Late st Contact Info) Description 01/23/2020 Telephone [facility] MATERNAL/ EVALUATION UNIT [address] [facility] [place] [address] Annabella Johnson MD [address] [place] [address] Results Social History Tobacco Use [...] on filedocumented in this encounter Care Teams On Air Talent Relationship Specialty Start Date End Date Alejandro Blevins MD [address] [place] [phone] PCP - General Family Medicine 12/07/19 documented as of this encounter
--- OUTSIDE RECORDS SUMMARY | 2024-07-11 09:48 | XMS_ITS | Encounter Summary ---
Author Organization [facility] Address [address] [facility] [place] [address] Care Team Providers Care Social Service Assistant Name Role Phone Alejandro Bleivns MD Primary Care Provider [phone] Reason for Visit * Reason Onset Date Comments Results 01/24/2020 Encounter Details Date Type Department Care Team (Late st Contact Info) Description 01/24/2020 Telephone [facility] MATERNAL/ EVALUATION UNIT [address] [facility] [address] [place] [address] Helen aHq MD [address] [place] [address] Results Social History Tobacco Use Types Packs/Day [...] on filedocumented in this encounter Care Teams Social Service Assistant Relationship Specialty Start Date End Date Alejandro Blevins MD [address] [place] [phone] PCP - General Family Medicine 12/07/19 documented as of this encounter
--- OUTSIDE RECORDS SUMMARY | 2024-07-11 09:48 | XMS_ITS | Encounter Summary ---
Author Organization [facility] Address [address] [facility] [place] [address] Care Team Providers Care Inspector Eyeglass Frames Name Role Phone Alejandro Blevins MD Primary Care Provider [phone] Encounter Details Date Type Department Care Team (Late st Contact Info) Description 02/05/2020 Orders Only [facility] PHYS OB [address] [place] [address] Ruben Sorto MD [address] [place] [address] Social History Tobacco Use Types Packs/Day Years [...] on filedocumented in this encounter Care Teams Inspector Eyeglass Frames Relationship Specialty Start Date End Date Alejandro Blevins MD [address] [place] [phone] PCP - General Family Medicine 12/07/19 documented as of this encounter
--- OUTSIDE RECORDS SUMMARY | 2024-07-11 09:48 | XMS_ITS | Encounter Summary ---
Author Organization [facility] Address [address] [facility] [place] [address] Care Team Providers Care Eggs Inspector Name Role Phone Alejandro Blevins MD Primary Care Provider [phone]- [phone] Reason for Visit * Reason Onset Date Comments Concerns 04/17/2020 Encounter Details Date Type Department Care Team (Late st Contact Info) Description 04/17/2020 Telephone [facility] MATERNAL/ EVALUATION UNIT [address] [place] [address]. [address] [place] [address] Genevieve Spears RN Concerns Social History Tobacco [...] ). She is in the ER in [place] currently being seen, mother was not able to go back with her. Explained the team in [place] will need to initiate the transfer process if that is what is needed. She voiced understanding and thanks. Called [facility], spoke with Marilu who is transport nurse for the day, she reiterated this is the process,they will await call from [place]. documented in this encounter Plan of Treatment Not on file documented as of this encounter Visit Diagnoses Not on filedocumented in this encounter Care Teams Eggs Inspector Relationship Specialty Start Date End Date Alejandro Blevins MD [address] [place] [phone] PCP - General Family Medicine 12/07/19 documented as of this encounter
--- OUTSIDE RECORDS SUMMARY | 2024-07-11 09:48 | XMS_ITS | Encounter Summary ---
Author Organization [facility] Address [address] [place] [address] Care Team Providers Care Fiber Optic Central Office Installer Name Role Phone Alejandro Blevins MD Primary Care Provider [phone] Reason for Visit * Reason Comments Vaginal Bleeding * Auth/Cert Specialty Diagnoses / Procedures Referred By Contac t Referred To Contact Referral ID Status Reason Start Date Expiration Date Visits Re quested Visits Authorized [id number] 1 1 Encounter Details Date Type Department Care Team (Late st Contact Info) Description 04/18/2020 2:40 AM CDT - 04/18/2020 4:10 AM CDT Surgery [facility] [address] [place] [address] Marisa James MD [address] [place] [address] SECTION (EMERGENCY) Surgery Details Date/Time Status Location OR Service Patient Class Case Class Case Type Trauma Case? 04/18/2020 2:40 AM Posted [facility] LABOR AND DELIVERY LD OR 1 Obstetrics [...] were sent to pharmacy for her to peanut picker. Patient knows to call and schedule 1 week and 6 week follow up visit. Aware to schedule appointment with hematology also. No further concerns. * Shira Gracia MD - 04/22/2020 3:40 PM CDT supervisor polishing Discharge Summary 05/05/2020, 8:59 AM Date of [...] nearest hospital and then was transfered to [facility]. Patient has continued to have some vaginal bleeding, but it is much less. Feels some mild contractions.She has not been seen in [place] [place] [facility] in several months due to transportation [...] Information for the patient's : Socorro Smalls [[id number]] Date of 04/18/2020 Time of : 2:53 AM Sex: Female Weight: 2640 g (5 lb 13.1 oz) (1 min): 6 (5 min): 7 (10 min): 8 Information for the patient's : Santiaog Smalls [[id number]] Date of 04/18/2020 Time of : 2:54 [...] Comments Your discharge diagnosis is: delivery delivered [[id number]] No special diet needed Resume your normal home diet as tolerated. Eat well-balanced meals that include foods from all of the food groups. Drink plenty of fluids It is important that you stay well hydrated. You should drink at least eight to ten 8-ounce glassesof water per day. Nothing per vagina For 6 weeks Light activity While on narcotics (Percocet or [place]) Do not drive Until able to slam on the brakes comfortably and completely off narcotic pain medication (Percocet or [place]) No heavy lifting Do not lift anything [...] itching Take Benadryl for relief of itching. Ujty-ego-hxythqn medication Use an abdominal binder or belly band for comfort as needed and use compression stockings (available at pharmacies or online) for leg swelling. Shira Gracia MD 05/05/2020 8:59 AM documented in this encounter Discharge Instructions * Discharge Instructions* Mary Ann Koo - 04/23/2020 2:00 PM CDT Follow up with your Exhibit Electrician in 1 week after discharge DELIVERED MOTHER DISCHARGE INSTRUCTIONS Refer to the Booklet given during your stay for more information. Please contact your business analytics faculty member for the followin. Any burning or itching [...] example: your cell phone and cell phone insurance loss assessor. PLEASE REMEMBER: 1. Always place your infant [...] to be indicated. JAYLYN Vallejo Office Ascom E SEARCHER * Angela Hauser Amy - 04/23/2020 11:22 AM CDT Problem: Oral Intake: Inadequate oral intake Goal: Total intake will meet estimated nutrient needs Description: Estimated Needs: KCAL: 3620-3404(20-25 kcal/kg IBW) Protein (g): 60-100(1.2-2 gm/kg IBW) [...] chew tablet 160 mg, Oral, QDAY Tdap (lfblvud-rdpfmapoan-iplxd pertussis) (BOOSTRIX) (7y+) injection 0.5 mL, Intramuscular, [...] 7. Limited PNC 1. Limited visits with [facility] (2) secondary to transportation issues 2. [...] documentation and agreewith history and physical and associate professor of automation of my plan, and I had eljq-rx-uryu time with this patient. DC instructions given. [...] care. They recommend high dose steroids for shelter effect of increased platelets. The rise in [...] 80 mg at 04/22/20 0843 ??? Tdap (urdckdo-ltqtuhkewn-enxad pertussis) (BOOSTRIX) (7y+) injection 0.5 mL 0.5 [...] no rhonchi Cardiovascular: pulses equal, S1 and O6jbrkw, no S3, no S4, no rubs no [...] IVIG that patient received has transient response. pullman clerk gyn team is concerned about wound healing. Noted that the MFM/Ob team doesn't want to proceed with high dose steroids. Monitor platelet count Transfuse platelets if bleeding to maintain count greater than 50,000 Recommended outpatient follow-up with her dressmaking teacher within one week of discharge UTI secondary [...] 1 gram/kg per day infusion as daily o6cdosv. Last dose of Solu-Medrol on 04/20/2020. Has had a good response with normalization ofher platelet count currently. However, responses to Solu-Medrol and IVIG may be transient. Recommend dexamethasone 40 mg orally daily x4 days with GI prophylaxis - order canceled by the ENVIRONMENTAL RESTORATION PLANNER team . ? No evidence of hemolysis [...] need to be monitored by her outpatient dressmaking teacher on discharge. ?? 6.?Untreated HCV infection,??mildly deranged [...] agalactiae in urine culture-management as per the ENVIRONMENTAL RESTORATION PLANNER team. On Macrobid. ?? Discussed with the patient, mother and her significant other at the bedside. Anticipate discharge later today. I have asked her to follow-up with her local dressmaking teacher upon discharge within 1 week to monitor [...] Precautions: Bed Mobility: Supine to Sit: Modified [place] Transfers: Sit to Stand: Complete [place] Stand to Sit: Complete [place] Mobility: Distance Ambulated: 300 FEET Ambulation: Assistive Device: None(refused gait belt) Ambulation: Level of Assistance: Complete [place] Ambulation: Gait Deviations: Antalgic Balance: Sitting - [...] discussed. GERALD reached out to Irlanda Lara ([phone]; fax [phone]; ) who indicated DCFS has taken custody [...] afternoon follow-up will be with GERALD Luo ([id number]) and GERALD explained a copy of a [...] mg 4 mg Oral q6h PRN Mayuri Norotn MD 4 mg at 04/20/20 2345 ??? [...] 80 mg at 04/22/20 0843 ??? Tdap (jjyucjs-saezrbjztx-plmoe pertussis) (BOOSTRIX) (7y+) injection 0.5 mL 0.5 [...] she will not be compliant with medication. pullman clerk gyn team is concerned about wound healing. Noted that the MFM/Ob team doesn'twant to proceed with high dose steroids. Monitor platelet count Transfuse platelets if bleeding to maintain count greater than 50,000 Recommended outpatient follow-up with her local dressmaking teacher Untreated UTI: Discussed with primary team ID [...] Monitor for vaginal bleeding as per the weld engineer team. Continue oral iron, parenteral B12, folic [...] estimated nutrient needs Description: Estimated Needs: KCAL: 7740-3514(20-25 kcal/kg IBW) Protein (g): 60-100(1.2-2 gm/kg IBW) [...] 7. Limited PNC 1. Limited visits with [facility] (2) secondary to transportation issues 2. [...] documentation and agreewith history and physical and associate professor of automation of my plan, and I had tvpb-ut-twop time with this patient. Check labs. Possible [...] box [address], sinus rhythm per rn telemetry #[id number]. Rooming in and bonding noted. Newborns formula [...] baby nursery. Hillary to transfer up to [facility]. Bedside report given to Connie JENKINS from [facility] ascom- [phone]. Telemetry notified that Hillary is moving to [...] Gracia Role: OB Resident Notification Method: Called/Phoned (8771) Action Orders Received (can d/c continuous pulse [...] 7. Limited PNC 1. Limited visits with [facility] (2) secondary to transportation issues 2. [...] documentation and agreewith history and physical and associate professor of automation of my plan, and I had hrea-nj-fxqy time with this patient. * Mayuri Norton MD - 04/21/2020 4:46 AM CDT PGY2 UNDERWRITING ACCOUNT REPRESENTATIVE Progress Note In to see patient. She [...] 6. Limited PNC 1. Limited visits with [facility] (2) secondary to transportation issues 2. [...] RN - 04/19/2020 7:34 PM CDT 04/19/20 0154 Clinician Communication/Critical Test Notification Reason: Condition Update [...] 04/19/2020 0600 Gross per 24 hour Intake 92874.95 ml Output 1980 ml Net 8171.95 ml [...] 6. Limited PNC 1. Limited visits with [facility] (2) secondary to transportation issues 2. [...] 04/17/2020 Hospital Day: 2 Attending: Dr. Brown Resident/Reservoir Caretaker: Drs. Crowe/ Jus Code Status: Full Code [...] 2/2 HCV, methamphetamine abuse who presented to [place] ED at 38w0d with leakage of bloody fluid. Patient reported she got up to use the bathroom and noticed a gush of blood like Koolaid . Was lost to follow-up in [facility] for several months due to transportation and financial difficulties. That hospital did not have any ObGyn staff so she was transferred. During transport, nurses noticed blood clots passing and a continuous trickle of blood from the vagina, increased with contractions. Initial plan was to transfer the patient to [place], the nearest [facility], however, [facility] would not accept the patient and she was brought to [facility]. On admission to [facility] the patient was actively bleeding with Plt [...] 04/19/2020 0600 Gross per 24 hour Intake 77046.95 ml Output 1980 ml Net 8171.95 ml [...] 2/2 HCV, methamphetamine abuse. who presented to [place] ED at 38w0d with leakage of bloody fluid. Patient reported she got up to use the bathroom and noticed a gush of blood like Koolaid . During transport, nurses noticed blood clots passing and a continuous trickle of blood from the vagina, increased with contractions. Initial plan was to transfer the patient to [place], the nearest hospital, however, [facility] would not accept the patient and she was brought to [facility]. On admission to [facility] the patient was actively bleeding with Plt [...] Transportation at discharge: Family Transportation (who): TBD Outreach Director/Support: Outreach Director person: Home/Functional Status: Functional and Cognitive Status [...] For any questions or needs please contact: Tool Procurement Coordinator Name/Phone number: Miladys Praker RN [phone] * Helena Fraser MD - 04/18/2020 3:03 [...] Patient's mother, Brittany, seemed anxious and distressed. Metal Model Builder accompanied Brittany to the ICU hallway and alerted patient's RN of Brittany's presence. RN provided Brittany with a brief update. RN was given Brittany'snumber to call once doctors are free to provide an update on patient's condition. Brittany informed change over that patient delivered twins (boy and girl) earlier this morning. Rc Mariee, also present on the 6th floor. Patient has a pre- existing blood platelet issue. Per Brittany, patient does not know she delivered her babies. Patient also as a 10yo and 15 yo. Metal Model Builder provided supportive presence and attentive listening to Brittany who was distressed throughout change over's time with her. Brittany wanted to return to the 6th floor to be with Rc and the babies in hopes of also getting some rest. Please call Brittany on her cell when doctors are available to provide an update. Pastoral Care remains available as needed/requested. Maryia Ray Metal Model Builder [place] Pastoral Care pager - Call [phone] (Mon-Fri: 7AM - 9PM and Sat/Sun 7AM - 3PM). Pastoral Care assistant construction superintendent pager - Call [phone] (outside of the times listed above) and enter a 10 digit call back number. Please allow the assistant construction superintendent change over 30 minutes to arrive to the hospital. * Boy Gonzalez, PT - 04/18/2020 8:56 AM CDT Attempted to see patient for physical therapy. Per editor publications, patient not appropriate for PT evaland treat [...] with above. BSUS showed clot in the MARIVN and unable to visualize Bakri, which was [...] Summary Patient Information Patient Name Hillary Smalls ([id number]) Sex Female OB History 3 Para 3 [...] A1: 6 A5: 7 Complications: Intolerance Location: [facility] Delivering Clinician: Marisa James MD 3B Outcome: Term Date: 04/18/20 GA: 38w1d Sex: M Delivery: Living: MARTHA Name: BROCK SMALLS BOY Dagmar THORNTON Weight: 2640 g (5 lb 13.1 oz) Anes: General PTL: N A1: 5 A5: 8 Complications: Intolerance Location: [facility] Delivering Clinician: Marisa James MD Transcribed Labs [...] Blood Loss Admission (Current) from 04/17/2020 in [facility] 4 ICU MEDICAL Estimated Blood Loss [...] -12.5 22 Brock Smalls Girl Deonte Thornton [[id number]] Patient Information Patient Name Brock Smalls ([id number]) Sex Female Anesthesia Method: Engineering Writer Events labor?: No steroids: None GBS Status: [...] was present at delivery (physician name): Counts [employer] Lap Pads Sponges Initial counts Added [...] Apgars assigned by: ANNABELLA TOMPKINS DO Delivery [place] Stabilization Suction Method: Catheter Secretions (Amount in [...] Arterial Stem cell collection (by )?: No [place] Measurements Weight: 2640 g Pounds and Ounces: 5 lb 13.1 oz Length: 18.5 Head circumference: 12.6 Chest circumference: Disposition: [place] Feeding and Elimination Mother's Feeding Choice During Stay ( Core Measure PC05): Voided in Delivery Room?: No Stooled in Delivery Room?: Yes Brock Smalls 2 [[id number]] Patient Information Patient Name Brock Smalls 2 ([id number]) Sex Male Anesthesia Method: Engineering Writer Events labor?: No steroids: None GBS Status: [...] was present at delivery (physician name): Counts [employer] Lap Pads Sponges Initial counts Added to counts Final counts Delivery ([place]) Delivery Date: 04/18/20 Delivery Time: 2:54 AM [...] 8 Apgars assigned by: LE HUDSON Delivery [place] Stabilization Equipment Checked by: LE Hudson Vigorous [...] Head circumference: 12.21 Chest circumference: Disposition: NICU [place] Feeding and Elimination Mother's Feeding Choice During [...] Date: 04/17/2020 Hospital Day: 1 Attending: Dr. Bronw Resident/Reservoir Caretaker: Drs. Crowe/ Jus Code Status: Full Code Events since last progress note: Patient seen and examined at the bedside. Continues to bleed. Sim adjusted. 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 Patient reported she got up to use the bathroom and noticed a gush of blood like Koolaid . Was lost to follow-up in [facility] for several months due to transportation and financial difficulties. That hospital did not have any ObGyn staff so she was transferred. During transport, nurses noticed blood clots passing and a continuous trickle of blood from the vagina, increased with contractions. Initial plan was to transfer the patient to [place], the nearest hospital, however, [facility] would not accept the patient and she was brought to [facility]. On admission to [facility] the patient was actively bleeding with Plt [...] Brown MD - 04/19/2020 3:39 PM CDT [facility] Teaching attending note Date of service: [...] 2/2 HCV, methamphetamine abuse. who presented to [place] ED at 38w0d with leakage of bloody fluid. Patient reported she got up to use the bathroom and noticed a gush of blood like Koolaid . During transport, nurses noticed blood clots passing and a continuous trickle of blood from the vagina, increased with contractions. Initial plan was to transfer the patient to [place], the nearest [facility], however, [facility] would not accept the patient and she was brought to [facility]. On admission to [facility] the patient was actively bleeding with Plt [...] James also at bedside. Rapid response and Gear Machine Operator General Dr. Mallory was called and patient was [...] B 140bpm, mod variability, reactive, no decels [place]: q2-3mins Labs reviewed. Plt 30 > 2u platelets > 29. Plan to give an additional 2u of platelets. 2u still on hold. Spoke with Blood Bank who is planning to order more platelets from [facility] (takes ~1hr). Fibrinogen stable at 345, [...] [facility], she had [...] decision making for assessment and support, direct kvxz-hj-nlod evaluation, personal review of the medical record [...] Date of Delivery: 05/01/20 care: is with [place] (only 2 visits) Patient's is complicated by: [...] the nearest hospitaland then was transferred to [facility]. Patient has continued to have some vaginal bleeding, but it is much less. Feels some mild contractions. She has not been seen in [facility] in several months due to transportation [...] variability, reactives B 135bpm, mod variability, reactive [place] q2-4min No decels seen, but areas of [...] Negative Negative Ketone UA Negative Negative Specific Pierre Part UA 1.015 1.005 - 1.030 Blood UA [...] POS Product Number R02 Unit Donor # [id number] Unit Status selected Product Code [id number] Blood Type Barcode 6200 Expiration Date [id number] Unit Description AS1 LR PRBC Unit ABO A Unit Rh POS Product Number R43 Unit Donor # [id number] Unit Status selected Product Code [id number] Blood Type Barcode 6200 Expiration Date [id number] PREPARE PLATELET PHERESIS UNIT(S), 2 Units Result Value Ref Range Unit Description LR PLT Pheresis Unit ABO A Unit Rh POS Product Number P02 Unit Donor # [id number] Unit Status selected Product Code [id number] Blood Type Barcode 6200 Expiration Date [id number] Unit Description LR PLT Pher IRR Unit ABO B Unit Rh POS Product Number P10 Unit Donor # [id number] Unit Status released Product Code [id number] Blood Type Barcode 7300 Expiration Date [id number] Unit Description LR PLT Pheresis Unit ABO A Unit Rh POS Product Number P02 Unit Donor # [id number] Unit Status selected Product Code [id number] Blood Type Barcode 6200 Expiration Date [id number] BLOOD TYPE VERIFICATION Result Value Ref Range [...] and MARQUITA 4. Has been seen by Exhibit Electrician in [place], Dr. Alex 5. Plt 30 [...] C 1. 2/2 IVDU 2. Quant 12/08/19 680455 3. ALT/AST 30/40 4. Has followed with [...] since then. Unable to see records in [facility]. 2. No abnormal cervical lesions palpated on [...] tablet 160 mg, Oral, QDAY ?? Tdap (dmbztou-ehswecqjye-xwkki pertussis) (BOOSTRIX) (7y+) injection 0.5 mL, Intramuscular, [...] results for input(s): CDIFFTOXINAB in the last 99362 hours. No results for input(s): SEDRATE in the last 93915 hours. No results for input(s): CRP in the last 10843 hours. No results for input(s): CK in the last 22874 hours. .No results for input(s): VANCOTROUGH, VANCOPEAK, VANCSERIES in the last 33183 hours. Invalid input(s): VANCORAND Recent Labs Component [...] results for input(s): PROCALCITON in the last 50827 hours. Microbiology Radiology Assessment Presentation in hemorrhagic [...] Reece MSW - 04/21/2020 11:31 AM CDT UNDERWRITING ACCOUNT REPRESENTATIVE CASE MANAGEMENT PSYCHOSOCIAL ASSESSMENT Reason for Referral: Chemical Dependency/ ETOH /Substance Abuse. Mother with hx of vicodin, meth and herorin use. drug screen- cords +methamphetamines, amphetamines, and butalbital SW placed DCFS referral on 04/18/20. DCFS worker is Irlanda Adams ([phone]; fax [phone]). SW has faxed UDS and cord results to [facility] and left a voicemail on 04/21/20 to provide additional information. SW is waiting to hear back from [facility] regarding d/c plan. SW met [...] None Cultural Barriers: None Ethnicity: Unavailable Lang: [place] Patient's Address: Pt stated she resides at [address] [place] [address] Pt's phone number: [phone] Pt shared she does not currently have her cell ph in her room. Family Support (name and phone) Extended Emergency Contact Information Primary Emergency Contact: Hillary Smalls Address: [address] [place] [address] [place] Relation: Mother Provider Engagement Executive needed? No Alternative Tool Clerk Family Strengths: Pt shared she has a [...] had completed substance use treatment while in nursing home years ago and was on substance [...] (Temporary Assistance to Needy Families)- No Food [place]- Yes WIC- Yes SSI- No Insurance: Payor/Plan Subscriber Name Rel Member # Group # MEDICAID - PENDING - * BROCK SMALLS * SON [id number] [address] [address] Community Resources Utilized: DCFS is involved. Designated Magnetic Resonance Imaging Director: Pt indicated she has identified a neurophysiological technician. Referrals: Nurses for Newborns- [place] resident Child protection referral- GERALD placed DCFS referral on 04/18/20 DFS/DCFS-Name of worker: rIlanda Adams Phone number: [phone]; fax [phone] Does the family have the following basic discharge needs? Pt denied any resource needs at this time. Utilities- Yes Telephone- Yes Car seat- Yes Crib- Yes Baby clothing- Yes Chiropractic Physician/School: Pt shared she plans to stay home to care for the twins with the support of FOB and her mother. Transportation: Pt indicated she would get a ride home at time of d/c from a family member or FOB. Family planning: The pt and her UNDERWRITING ACCOUNT REPRESENTATIVE have discussed family planning. Recommended discharge plan for : Do not d/c infants home without DCFS approval. D/c plan to be determined by DCFS. Per nursing, infants are expected to be medically ready for d/c 04/22/20. GERALD iswaiting to hear back from [facility] regarding d/c plan. Addendum: 4:20 pm [...] h/o hepatitis C, anemia Estimated Needs: KCAL: 2296-7786(20-25 kcal/kg IBW) Protein (g): 60-100(1.2-2 gm/kg IBW) [...] 2:08 PM CDTAssociated Order(s): IP CONSULT TO BANKING ASSISTANT Social Service Consult -- Brief Reason for Referral: Mother with hx of vicodin, meth and herorin use. [place] drug screen. Cords remain pending. Male/female twins [...] methamphetamine use. Cord results remain pending. Hotline submarine worker is [place] . SW connected [...] vitamin B12, folic acid, venofer. Last BM COMMISSIONS ANALYST. Active bowel sounds noted. EMR indicates [...] Pain affecting intake: No Estimated Needs: KCAL: 1241-4124(20-25 kcal/kg IBW) Protein (g): 60-100(1.2-2 gm/kg IBW) [...] results for input(s): PREALBUMIN in the last 17248 hours. No results for input(s): PHOS, PHOSPHORUS in the last 49739 hours. Recent Labs Component Name 04/18/2037 MAGNESIUM [...] injection 40 mg, Intravenous, QDAY ?? [COMPLETED] iihluebvhy-yodexwpeevxms-vamwchkm (FIORICET) 50-325-40 MG tablet 1 tablet, Oral, [...] Intravenous, Continuous Skin/Wound: abdomen incision Last BM: COMMISSIONS ANALYST Nutrition Care Process (1) Nutrition Diagnostic [...] was admitted to the MFM service at [facility] Nov, 2019 at 19 weeks gestation [...] follow-up with hepatology and her own local dressmaking teacher . The patient is currently sedated and intubated and can offer no history. Chart notes indicate that she was being followed by her dressmaking teacher, Dr. Alex in [place] and was receiving B12, folate and iron supplements and had seen a kickboxing instructor, Dr. Jain, but had not initiated any therapy for her HCV infection.. She initially presented at [facility] ED and was transferred to [facility] for a higher level of care. [...] A Bakri balloon was placed by the ENVIRONMENTAL RESTORATION PLANNER service in the uterine fundus which showed [...] intubated, unresponsive on ventilator Laboratory data: ANC 20883 ALC 1488 Recent Labs Component Name 04/18/20 [...] Negative 12/08/19 Hepatitis C Virus Quantitation IU/mL 052060 Hepatitis C Virus Log 10 log10 IU/mL 5.959 LA with DRVVT - negative Beta 2 glycoprotein antibody titers IgG/IgM-negative Cardiolipin antibody IgG/IgA-negative. IgM 37 (low to medium positive) Imaging data: Portable chest [id number]/IMPRESSION: The tip of the endotracheal tube may [...] B12 1000 mcg IM daily x7 days, [id number] mg IV infusion daily x3 days, folic acid 1 mg IV daily. 6. Untreated HCV infection, mildly deranged hepatic function-monitor LFTs. Will need to start therapy directed against HCV once stable 7. Polysubstance drug abuse, IV drug abuse-UDS positive for amphetamine. Monitor for withdrawal. Discussed with the ICU resident team, the patient's RN, and with Dr. Brown, editor publications. Dr. Castillo, is covering our group over the weekend and will be available for any questions as needed. Dr Haider will cover my inpatient service on Tuesday04/21/2020 Heraclio Dave MD, FACP Hematology and Medical Oncology [facility] [address] [place] [address], [facility] [address] [place] [address] Exchange: [phone] Please be advised that voice recognition software [...] patient's : Serina, Baby Girl 1 Hillary [[id number]] Date of 04/18/2020 Time of : 2:53 AM Sex: Female Weight: 2640 g (5 lb 13.1 oz) (1 min): 6 (5 min): 7 (10 min): 8 Information for the patient's : Serina, Baby Boy 2 Hillary [[id number]] Date of 04/18/2020 Time of : 2:54 [...] - 04/18/2020 6:52 AM CDT Called for [employer] PANELS DEBURRER at 0446 for decreased BP. Unable to obtain sBP, OB staff at bedside. Immediate emergent transfer to MICU. Transfer to 493 at 0450. 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 Intubated and lined per Dr. [...] IGG/IGM/IGA PANEL STAT 04/18/2020 9:30 AM CDT [id number] ANTIBODY STAT 04/18/2020 9:2 9 AM CDT REF LAB COMMENT Routine 04/18/2020 9:29 AM CDT [id number] ACTIVITY STAT 04/18/2020 9:2 9 AM CDT [...] COMPREHENSIVE METABOLIC PANEL (04/23/2020 6:01 AM CDT) [facility] Glucose 82 70 - 105 mg/dL 04/23/2020 7:01 AM CDT [facility] Sodium 135(L) 136 - 145 mmol/L 04/23/2020 7:01 AM [facility] Potassium 3.8 3.5 - 5.1 mmol/L 04/23/2020 7:01 AM [facility] Chloride 102 98 - 107 mmol/L 04/23/2020 7:01 AM [facility] CO2 25 23 - 31 mmol/L 04/23/2020 7:01 AM [facility] Calcium 7.6(L) 8.4 - 10.4 mg/dL 04/23/2020 7:01 AM [facility] Anion Gap 8 8 - 16 mmol/L 04/23/2020 7:01 AM [facility] BUN 14 7 - 18.7 mg/dL 04/23/2020 7:01 AM [facility] Creatinine 0.60 0.57 - 1.11 mg/dL 04/23/2020 7:01 AM [facility] Alkaline Phosphatase 112 40 - 150 U/L 04/23/2020 7:01 AM [facility] ALT 29 0 - 61 U/L 04/23/2020 7:01 AM [facility] AST 34 5 - 34 U/L 04/23/2020 7:01 AM [facility] Protein Total 5.7(L) 6.4 - 8.3 gm/dL 04/23/2020 7:01 AM [facility] Albumin 2.2(L) 3.5 - 5.2 gm/dL 04/23/2020 7:01 AM [facility] Bilirubin Total 0.5 0.2 - 1.0 mg/dL 04/23/2020 7:01 AM [facility] eGFR by MDRD >60 >60 mL/min/1.7 3m2 04/23/2020 7:01 AM [facility] eGFR by MDRD >60 >60 mL/min/1.7 3m2 04/23/2020 7:01 AM [facility] Blood BLOOD SPECIMEN / Unknown Lab Venipuncture / Unknown 04/23/2020 6:01 AM CDT 04/23/2020 6:[address] [facility] Shira Gracia MD LAB - CHEMISTRY ORD ERABLES [facility] [address] [place] [address] * (ABNORMAL) CBC W AUTO DIFFERENTIAL (04/23/2020 6:01 AM CDT) WBC 15.8(H) 4.4 - 10.7 x10E9/L 04/23/2020 6:44 AM CDT [facility] WBC Corrected 04/23/2020 6:44 AM CDT [facility] RBC 2.97(L) 3.80 - 5.20 x10E12/L 04/23/2020 6:44 AM CDT [facility] Hemoglobin 8.4(L) 12.0 - 15.6 gm/dL 04/23/2020 6:44 AM CDT [facility] Hematocrit 25.6(L) 35.9 - 45.5 % 04/23/2020 6:44 AM CDT [facility] MCV 86.2 80.7 - 98.3 fl 04/23/2020 6:44 AM CDT [facility] MCH 28.3 26.7 - 34.0 pg 04/23/2020 6:44 AM CDT [facility] MCHC 32.8 30.8 - 35.9 gm/dL 04/23/2020 6:44 AM CDT [facility] Platelet Count 272 153 - 416 x10E9/L 04/23/2020 6:44 AM CDT [facility] RDW-CV 19.6(H) 12.1 - 14.9 % 04/23/2020 6:44 AM CDT [facility] MPV 10.8 9.4 - 12.9 fl 04/23/2020 6:44 AM CDT [facility] Neutrophils % 79.2(H) 44.0 - 73.0 % 04/23/2020 6:44 AM CDT [facility] Lymphocytes % 11.4(L) 20.0 - 43.0 % 04/23/2020 6:44 AM CDT [facility] Monocytes % 5.2 5.0 - 13.0 % 04/23/2020 6:44 AM CDT [facility] Eosinophils % 0.1 0.0 - 6.0 % 04/23/2020 6:44 AM CDT [facility] Basophils % 0.2 0.0 - 2.0 % 04/23/2020 6:44 AM CDT [facility] Immature Granulocytes 3.9(H) 0 - 1 % 04/23/2020 6:44 AM CDT [facility] Neutrophil Absolute 12.50(H) 2.01 - 7.14 x10E9/L 04/23/2020 6:44 AM CDT [facility] Lymphocytes Absolute 1.80 1.07 - 3.94 x10E9/L 04/23/2020 6:44 AM CDT [facility] Monocytes Absolute 0.82 0.26 - 1.07 x10E9/L 04/23/2020 6:44 AM CDT [facility] Eosinophils Absolute 0.02 0 - 0.47 x10E9/L 04/23/2020 6:44 AM CDT [facility] Basophils Absolute 0.03 0 - 0.08 x10E9/L 04/23/2020 6:44 AM CDT [facility] Immature Granulocytes Absolute 0.62(H) 0.00 - 0.06 x10E9/L 04/23/2020 6:44 AM CDT [facility] nRBC Auto 4 /100 WBC 04/23/2020 6:44 AM T [facility] Blood BLOOD SPECIMEN / Unknown Lab Venipuncture / Unknown 04/23/2020 6:01 AM CDT 04/23/2020 6:30 AM CDT Maikel Ring MD LAB - HEMATOLOGY ORDERABLES Performing Organization Address City/State/[facility] Co de Phone Number [facility] [address] [place] [place], [place] [id number] * (ABNORMAL) COMPREHENSIVE METABOLIC PANEL (04/22/2020 9:28 AM CDT) [facility] Glucose 79 70 - 105 mg/dL 04/22/2020 10:09 AM CDT [facility] Sodium 135(L) 136 - 145 mmol/L 04/22/2020 10:09 AM CDT [facility] Potassium 3.3(L) 3.5 - 5.1 mmol/L 04/22/2020 10:09 AM CDT [facility] Chloride 103 98 - 107 mmol/L 04/22/2020 10:09 AM CDT [facility] CO2 27 23 - 31 mmol/L 04/22/2020 10:09 AM CDT [facility] Calcium 7.1(L) 8.4 - 10.4 mg/dL 04/22/2020 10:09 AM [facility] Anion Gap 5(L) 8 - 16 mmol/L 04/22/2020 10:09 AM CDT [facility] BUN 13 7 - 18.7 mg/dL 04/22/2020 10:09 AM CDT [facility] Creatinine 0.66 0.57 - 1.11 mg/dL 04/22/2020 10:09 AM [facility] Alkaline Phosphatase 95 40 - 150 U/L 04/22/2020 10:09 AM CDT [facility] ALT 26 0 - 61 U/L 04/22/2020 10:09 AM CDT [facility] AST 32 5 - 34 U/L 04/22/2020 10:09 AM [facility] Protein Total 5.1(L) 6.4 - 8.3 gm/dL 04/22/2020 10:09 AM [facility] Albumin 2.0(L) 3.5 - 5.2 gm/dL 04/22/2020 10:09 AM [facility] Bilirubin Total 0.5 0.2 - 1.0 mg/dL 04/22/2020 10:09 AM [facility] eGFR by MDRD >60 >60 mL/min/1.7 3m2 04/22/2020 10:09 AM CDT [facility] eGFR by MDRD >60 >60 mL/min/1.7 3m2 04/22/2020 10:09 AM T [facility] Blood BLOOD SPECIMEN / Unknown Lab Venipuncture / Unknown 04/22/2020 9:28 AM CDT 04/22/2020 9:35 AM CDT Shira Gracia MD LAB - CHEMISTRY ORD ERABLES [facility] [address] [place] [address] * (ABNORMAL) CBC W AUTO DIFFERENTIAL (04/22/2020 9:28 AM CDT) WBC 13.3(H) 4.4 - 10.7 x10E9/L 04/22/2020 10:01 AM [facility] WBC Corrected 04/22/2020 10:01 AM [facility] RBC 2.77(L) 3.80 - 5.20 x10E12/L 04/22/2020 10:01 AM [facility] Hemoglobin 8.0(L) 12.0 - 15.6 gm/dL 04/22/2020 10:01 AM [facility] Hematocrit 24.6(L) 35.9 - 45.5 % 04/22/2020 10:01 AM [facility] MCV 88.8 80.7 - 98.3 fl 04/22/2020 10:01 AM [facility] MCH 28.9 26.7 - 34.0 pg 04/22/2020 10:01 AM [facility] MCHC 32.5 30.8 - 35.9 gm/dL 04/22/2020 10:01 AM [facility] Platelet Count 219 153 - 416 x10E9/L 04/22/2020 10:01 AM [facility] RDW-CV 19.5(H) 12.1 - 14.9 % 04/22/2020 10:01 AM [facility] MPV 10.8 9.4 - 12.9 fl 04/22/2020 10:01 AM [facility] Neutrophils % 77.8(H) 44.0 - 73.0 % 04/22/2020 10:01 AM [facility] Lymphocytes % 13.7(L) 20.0 - 43.0 % 04/22/2020 10:01 AM [facility] Monocytes % 5.2 5.0 - 13.0 % 04/22/2020 10:01 AM [facility] Eosinophils % 0.5 0.0 - 6.0 % 04/22/2020 10:01 AM [facility] Basophils % 0.2 0.0 - 2.0 % 04/22/2020 10:01 AM [facility] Immature Granulocytes 2.6(H) 0 - 1 % 04/22/2020 10:01 AM [facility] Neutrophil Absolute 10.35(H) 2.01 - 7.14 x10E9/L 04/22/2020 10:01 AM [facility] Lymphocytes Absolute 1.82 1.07 - 3.94 x10E9/L 04/22/2020 10:01 AM CDT [facility] Monocytes Absolute 0.69 0.26 - 1.07 x10E9/L 04/22/2020 10:01 AM CDT [facility] Eosinophils Absolute 0.07 0 - 0.47 x10E9/L 04/22/2020 10:01 AM CDT [facility] Basophils Absolute 0.02 0 - 0.08 x10E9/L 04/22/2020 10:01 AM CDT [facility] Immature Granulocytes Absolute 0.35(H) 0.00 - 0.06 x10E9/L 04/22/2020 10:01 AM CDT [facility] nRBC Auto 3 /100 WBC 04/22/2020 10:01 AM CDT [facility] Blood BLOOD SPECIMEN / Unknown Lab Venipuncture / Unknown 04/22/2020 9:28 AM CDT 04/22/2020 9:35 AM CDT Maikel Ring MD LAB - HEMATOLOGY ORDERABLES [facility] [address] [place] [address] * PREPARE FFP UNIT(S), 1 Units (04/21/2020 6:41 AM CDT) Pathologist [facility] Unit Description Thawed Plasma 5D [facility] Unit ABO AB [facility] Unit Rh POS [facility] Product [facility] [id number] [facility] Unit Donor # [id number] [facility] Unit Status transfused [facility] Product Code [id number] [facility] Blood Type Barcode 8400 [facility] Expiration Date [id number] [facility] Blood Bank BLOOD SPECIMEN / Unknown 04/21/2020 6:41 AM CDT 04/21/2020 6:48 AM CDT Marisa James MD LAB - BLOOD BANK ORD ERABLES Performing Organization Address City/[facility]/ZIP Co de Phone Number [facility] [address] [place] [address] * (ABNORMAL) COMPREHENSIVE METABOLIC PANEL (04/21/2020 6:41 AM CDT) Glucose 119(H) 70 - 105 mg/dL 04/21/2020 8:02 AM [facility] Sodium 132(L) 136 - 145 mmol/L 04/21/2020 8:02 AM [facility] Potassium 3.0(L) 3.5 - 5.1 mmol/L 04/21/2020 8:02 AM [facility] Chloride 100 98 - 107 mmol/L 04/21/2020 8:02 AM [facility] CO2 26 23 - 31 mmol/L 04/21/2020 8:02 AM [facility] Calcium 6.8(LL) 8.4 - 10.4 mg/dL 04/21/2020 8:02 AM [facility] Anion Gap 6(L) 8 - 16 mmol/L 04/21/2020 8:02 AM [facility] BUN 13 7 - 18.7 mg/dL 04/21/2020 8:02 AM [facility] Creatinine 0.63 0.57 - 1.11 mg/dL 04/21/2020 8:02 AM [facility] Alkaline Phosphatase 105 40 - 150 U/L 04/21/2020 8:02 AM [facility] ALT 23 0 - 61 U/L 04/21/2020 8:02 AM [facility] AST 28 5 - 34 U/L 04/21/2020 8:02 AM [facility] Protein Total 5.9(L) 6.4 - 8.3 gm/dL 04/21/2020 8:02 AM [facility] Albumin 2.1(L) 3.5 - 5.2 gm/dL 04/21/2020 8:02 AM [facility] Bilirubin Total 0.4 0.2 - 1.0 mg/dL 04/21/2020 8:02 AM [facility] eGFR by MDRD >60 >60 mL/min/1.7 3m2 04/21/2020 8:02 AM [facility] eGFR by MDRD >60 >60 mL/min/1.7 3m2 04/21/2020 8:02 AM [facility] Blood BLOOD SPECIMEN / Unknown Lab Venipuncture / Unknown 04/21/2020 6:41 AM CDT 04/21/2020 6:48 AM CDT Shira Gracia MD LAB - CHEMISTRY ORD ERABLES [facility] [address] [place] [address] * (ABNORMAL) RENAL FUNCTION PANEL (04/21/2020 6:41 AM CDT) Glucose 118(H) 70 - 105 mg/dL 04/21/2020 7:46 AM CDT [facility] Sodium 133(L) 136 - 145 mmol/L 04/21/2020 7:46 AM CDT [facility] Potassium 3.0(L) 3.5 - 5.1 mmol/L 04/21/2020 7:46 AM CDT [facility] Chloride 101 98 - 107 mmol/L 04/21/2020 7:46 AM CDT [facility] CO2 26 23 - 31 mmol/L 04/21/2020 7:46 AM CDT [facility] Calcium 6.9(LL) 8.4 - 10.4 mg/dL 04/21/2020 7:46 AM CDT [facility] Anion Gap 6(L) 8 - 16 mmol/L 04/21/2020 7:46 AM CDT [facility] BUN 13 7 - 18.7 mg/dL 04/21/2020 7:46 AM CDT [facility] Creatinine 0.65 0.57 - 1.11 mg/dL 04/21/2020 7:46 AM CDT [facility] Albumin 2.1(L) 3.5 - 5.2 gm/dL 04/21/2020 7:46 AM CDT [facility] Phosphorus 3.6 2.3 - 4.7 mg/dL 04/21/2020 7:46 AM CDT [facility] eGFR by MDRD >60 >60 mL/min/1.7 3m2 04/21/2020 7:46 AM CDT [facility] eGFR by MDRD >60 >60 mL/min/1.7 3m2 04/21/2020 7:46 AM CDT [facility] Blood BLOOD SPECIMEN / Unknown Lab Venipuncture / Unknown 04/21/2020 6:41 AM CDT 04/21/2020 6:48 AM CDT Clem Brown MD LAB - CHEMISTRY MIRI GO Performing Organization Address City/[facility]/ZIP Co de Phone Number [facility] [address] [place] [address] * (ABNORMAL) MAGNESIUM BLOOD (04/21/2020 6:41 AM CDT) Magnesium 4.6(H) 1.6 - 2.6 mg/dL 04/21/2020 7:38 AM CDT [facility] Blood BLOOD SPECIMEN / Unknown Lab Venipuncture / Unknown 04/21/2020 6:41 AM CDT 04/21/2020 6:48 AM CDT Clem Brown MD LAB - CHEMISTRY MIRI GO Performing Organization Address [facility] Co de Phone Number [facility] [address] [place] [address] * TYPE + SCREEN PANEL (04/21/2020 6:41 AM CDT) ABO Rh A POS 04/21/2020 7:44 AM CDT [facility] Comment:History checked. Antibody Screen NEG 0 7:44 AM CDT [facility] Blood Bank BLOOD SPECIMEN / Unknown Lab Venipuncture / Unknown 04/21/2020 6:41 AM CDT 04/21/2020 6:48 AM CDT Danilo Rodríguez MD LAB - BLOOD BANK ORD ROMARIO Performing Organization Address City/[facility]/ZIP Co de Phone Number [facility] [address] [place] [address] * HAPTOGLOBIN (04/21/2020 6:41 AM CDT) Haptoglobin 42 30 - 200 mg/dL 04/21/2020 7:38 AM CDT [facility] Blood BLOOD SPECIMEN / Unknown Lab Venipuncture / Unknown 04/21/2020 6:41 AM CDT 04/21/2020 6:48 AM CDT Turner Castillo MD LAB - CHEMISTRY MIRI GO Performing Organization Address City/[facility]/ZIP Co de Phone Number [facility] [address] [place], [place] [id number] * (ABNORMAL) LDH BLOOD (04/21/2020 6:41 AM CDT) LDH 449(H) 125 - 220 U/L 04/21/2020 7:38 AM CDT [facility] Blood BLOOD SPECIMEN / Unknown Lab Venipuncture / Unknown 04/21/2020 6:41 AM CDT 04/21/2020 6:48 AM CDT Turner Castillo MD LAB - CHEMISTRY MIRI GO Performing Organization Address [facility] Co de Phone Number [facility] [address] [place] [address] * (ABNORMAL) DIFFERENTIAL MANUAL (04/21/2020 4:45 AM CDT) WBC Auto 22.9 x10E9/L 04/21/2020 7:18 AM CDT [facility] WBC Corrected 04/21/2020 7:18 AM CDT [facility] nRBC 3 /100 WBC 04/21/2020 7:18 AM CDT [facility] Neutrophil % Manual 89(H) 44 - 73 % 04/21/2020 7:18 AM CDT [facility] Lymphocytes % Manual 5(L) 20 - 43 % 04/21/2020 7:18 AM CDT [facility] Monocytes % Manual 3(L) 5 - 13 % 2019 7:18 AM CDT [facility] Band % Manual 2 0 - 11 % 04/21/2020 7:18 AM CDT [facility] [place] Manual 1(H) <=0 % 04/21/2020 7:18 AM CDT [facility] Cells Counted 100 # cells 04/21/2020 7:18 AM CDT [facility] WBC Morph Normal 04/21/2020 7:18 AM CDT [facility] Anisocytosis 2+(A) None 04/21/2020 7:18 AM CDT [facility] Polychromasia 1+(A) None 04/21/2020 7:18 AM CDT [facility] Platelet Estimation Normal 04/21/2020 7:18 AM CDT [facility] Blood BLOOD SPECIMEN / Unknown Lab Venipuncture / Unknown 04/21/2020 4:45 AM CDT 04/21/2020 5:51 AM CDT Maikel Ring MD LAB - HEMATOLOGY ORDERABLES [facility] [address] [place] [address] * (ABNORMAL) CBC W AUTO DIFFERENTIAL (04/21/2020 4:45 AM CDT) WBC 22.9(H) 4.4 - 10.7 x10E9/L 04/21/2020 6:14 AM CDT [facility] WBC Corrected 04/21/2020 6:14 AM CDT [facility] RBC 3.02(L) 3.80 - 5.20 x10E12/L 04/21/2020 6:14 AM CDT [facility] Hemoglobin 8.6(L) 12.0 - 15.6 gm/dL 04/21/2020 6:14 AM CDT [facility] Hematocrit 26.0(L) 35.9 - 45.5 % 04/21/2020 6:14 AM CDT [facility] MCV 86.1 80.7 - 98.3 fl 04/21/2020 6:14 AM CDT [facility] MCH 28.5 26.7 - 34.0 pg 04/21/2020 6:14 AM CDT [facility] MCHC 33.1 30.8 - 35.9 gm/dL 04/21/2020 6:14 AM CDT [facility] Platelet Count 211 153 - 416 x10E9/L 04/21/2020 6:14 AM CDT [facility] RDW-CV 19.5(H) 12.1 - 14.9 % 04/21/2020 6:14 AM CDT [facility] MPV 12.0 9.4 - 12.9 fl 04/21/2020 6:14 AM CDT [facility] nRBC Auto 3 /100 WBC 04/21/2020 6:14 AM CDT [facility] Blood BLOOD SPECIMEN / Unknown Lab Venipuncture / Unknown 04/21/2020 4:45 AM CDT 04/21/2020 5:51 AM CDT Maikel Ring MD LAB - HEMATOLOGY ORDERABLES Performing Organization Address [facility]/ZIP Co de Phone Number [facility] [address] [place], [place] [id number] * (ABNORMAL) DIFFERENTIAL MANUAL (04/20/2020 7:46 PM CDT) WBC Auto 21.9 x10E9/L 04/20/2020 9:10 PM CDT [facility] WBC Corrected 04/20/2020 9:10 PM CDT [facility] nRBC 5 /100 WBC 04/20/2020 9:10 PM CDT [facility] Neutrophil % Manual 97(H) 44 - 73 % 04/20/2020 9:10 PM CDT [facility] Lymphocytes % Manual 1(L) 20 - 43 % 04/20/2020 9:10 PM CDT [facility] Monocytes % Manual 1(L) 5 - 13 % 04/20/2020 9:10 PM CDT [facility] Band % Manual 1 0 - 11 % 04/20/2020 9:10 PM CDT [facility] Cells Counted 100 # cells 04/20/2020 9:10 PM CDT [facility] RBC Morphology Normal 04/20/2020 9:10 PM CDT [facility] WBC Morph Normal 04/20/2020 9:10 PM CDT [facility] Platelet Estimation Normal 04/20/2020 9:10 PM CDT [facility] Blood BLOOD SPECIMEN / Unknown Lab Venipuncture / Unknown 04/20/2020 7:46 PM CDT 04/20/2020 7:51 PM CDT Turner Castillo MD LAB - HEMATOLOGY ORD ERABLES Performing Organization Address [facility]/ZIP Co de Phone Number [facility] [address] [place] [phone] * (ABNORMAL) CBC W AUTO DIFFERENTIAL (04/20/2020 7:46 PM CDT) [facility] Signature WBC 21.9(H) 4.4 - 10.7 x10E9/L 04/20/2020 7:58 PM CDT [facility] WBC Corrected 04/20/2020 7:58 PM CDT [facility] RBC 2.93(L) 3.80 - 5.20 x10E12/L 04/20/2020 7:58 PM CDT [facility] Hemoglobin 8.2(L) 12.0 - 15.6 gm/dL 04/20/2020 7:58 PM CDT [facility] Hematocrit 24.5(L) 35.9 - 45.5 % 04/20/2020 7:58 PM CDT [facility] MCV 83.6 80.7 - 98.3 fl 04/20/2020 7:58 PM CDT [facility] MCH 28.0 26.7 - 34.0 pg 04/20/2020 7:58 PM CDT [facility] MCHC 33.5 30.8 - 35.9 gm/dL 04/20/2020 7:58 PM CDT [facility] Platelet Count 200 153 - 416 x10E9/L 04/20/2020 7:58 PM CDT [facility] RDW-CV 18.6(H) 12.1 - 14.9 % 04/20/2020 7:58 PM CDT [facility] MPV 11.1 9.4 - 12.9 fl 04/20/2020 7:58 PM CDT [facility] nRBC Auto 3 /100 WBC 04/20/2020 7:58 PM CDT [facility] Blood BLOOD SPECIMEN / Unknown Lab Venipuncture / Unknown 04/20/2020 7:46 PM CDT 04/20/2020 7:51 PM CDT Turner Castillo MD LAB - HEMATOLOGY ORD ERABLES [facility] [address] [place] [address] * XR CHEST 2VW (04/20/2020 [...] - 34.0 pg 04/20/2020 2:16 PM CDT [facility] MCHC 33.6 30.8 - 35.9 gm/dL 04/20/2020 2:16 PM [facility] Platelet Count 166 153 - 416 x10E9/L 04/20/2020 2:16 PM [facility] RDW-CV 18.7(H) 12.1 - 14.9 % 04/20/2020 2:16 PM [facility] MPV 11.2 9.4 - 12.9 fl 04/20/2020 2:16 PM [facility] Neutrophils % 87.7(H) 44.0 - 73.0 % 04/20/2020 2:16 PM [facility] Lymphocytes % 4.8(L) 20.0 - 43.0 % 04/20/2020 2:16 PM [facility] Monocytes % 3.0(L) 5.0 - 13.0 % 04/20/2020 2:16 PM [facility] Eosinophils % 0.0 0.0 - 6.0 % 04/20/2020 2:16 PM [facility] Basophils % 0.2 0.0 - 2.0 % 04/20/2020 2:16 PM [facility] Immature Granulocytes 4.3(H) 0 - 1 % 04/20/2020 2:16 PM [facility] Neutrophil Absolute 18.77(H) 2.01 - 7.14 x10E9/L 04/20/2020 2:16 PM [facility] Lymphocytes Absolute 1.02(L) 1.07 - 3.94 x10E9/L 04/20/2020 2:16 PM [facility] Monocytes Absolute 0.64 0.26 - 1.07 x10E9/L 04/20/2020 2:16 PM [facility] Eosinophils Absolute 0.01 0 - 0.47 x10E9/L 04/20/2020 2:16 PM [facility] Basophils Absolute 0.04 0 - 0.08 x10E9/L 04/20/2020 2:16 PM [facility] Immature Granulocytes Absolute 0.92(H) 0.00 - 0.06 x10E9/L 04/20/2020 2:16 PM [facility] nRBC Auto 3 /100 WBC 04/20/2020 2:16 PM CDT [facility] Blood BLOOD SPECIMEN / Unknown Lab Venipuncture / Unknown 04/20/2020 2:08 PM CDT 04/20/2020 2:12 PM CDT Turner Castillo MD LAB - HEMATOLOGY ORD ROMARIO Performing Organization Address City/[facility]/ZIP Co de Phone Number [facility] [address] [place] [phone] * AST BLOOD (04/20/2020 10:42 AM CDT) AST 27 5 - 34 U/L 04/20/2020 2:26 PM CDT [facility] Blood BLOOD SPECIMEN / Unknown Lab Venipuncture / Unknown 04/20/2020 10:42 AM CDT 04/20/2020 10:42 AM CDT Ron Quinn MD LAB - CHEMISTRY MIRI GO Performing Organization Address [facility] Co de Phone Number [facility] [address] [place] [phone] * ALT (04/20/2020 10:42 AM CDT) ALT 19 0 - 61 U/L 04/20/2020 2:26 PM CDT [facility] Blood BLOOD SPECIMEN / Unknown Lab Venipuncture / Unknown 04/20/2020 10:42 AM CDT 04/20/2020 10:42 AM CDT Ron Quinn MD LAB - CHEMISTRY MIRI GO Performing Organization Address City/[facility] Co de Phone Number [facility] [address] [place] [phone] * (ABNORMAL) RENAL FUNCTION PANEL (04/20/2020 10:42 AM CDT) Glucose 103 70 - 105 mg/dL 04/20/2020 11:08 AM CDT [facility] Sodium 135(L) 136 - 145 mmol/L 04/20/2020 11:08 AM CDT [facility] Potassium 4.0 3.5 - 5.1 mmol/L 04/20/2020 11:08 AM CDT [facility] Chloride 108(H) 98 - 107 mmol/L 04/20/2020 11:08 AM CDT [facility] CO2 24 23 - 31 mmol/L 04/20/2020 11:08 AM CDT [facility] Calcium 7.4(L) 8.4 - 10.4 mg/dL 04/20/2020 11:08 AM CDT [facility] Anion Gap 3(L) 8 - 16 mmol/L 04/20/2020 11:08 AM CDT [facility] BUN 18 7 - 18.7 mg/dL 04/20/2020 11:08 AM CDT [facility] Creatinine 0.65 0.57 - 1.11 mg/dL 04/20/2020 11:08 AM CDT [facility] Albumin 1.9(L) 3.5 - 5.2 gm/dL 04/20/2020 11:08 AM CDT [facility] Phosphorus 3.0 2.3 - 4.7 mg/dL 04/20/2020 11:08 AM CDT [facility] eGFR by MDRD >60 >60 mL/min/1.7 3m2 04/20/2020 11:08 AM CDT [facility] eGFR by MDRD >60 >60 mL/min/1.7 3m2 04/20/2020 11:08 AM CDT [facility] Blood BLOOD SPECIMEN / Unknown Lab Venipuncture / Unknown 04/20/2020 10:42 AM CDT 04/20/2020 10:42 AM CDT Clem Brown MD LAB - CHEMISTRY MIRI GO [facility] Organization Address City/State/ZIP Co de Phone Number [facility] [address] [place], [place] [phone] * (ABNORMAL) MAGNESIUM BLOOD (04/20/2020 10:42 AM CDT) [facility] Magnesium 1.5(L) 1.6 - 2.6 mg/dL 04/20/2020 11:06 AM CDT [facility] Blood BLOOD SPECIMEN / Unknown Lab Venipuncture / Unknown 04/20/2020 10:42 AM CDT 04/20/2020 10:42 AM CDT Clem Brown MD LAB - CHEMISTRY MIRI GO [facility] Organization Address City/State/ZIP Co de Phone Number [facility] [address] [place] [address] * (ABNORMAL) CBC W AUTO DIFFERENTIAL (04/20/2020 10:42 AM CDT) WBC 22.0(H) 4.4 - 10.7 x10E9/L 04/20/2020 10:51 AM CDT [facility] WBC Corrected 04/20/2020 10:51 AM CDT [facility] RBC 2.67(L) 3.80 - 5.20 x10E12/L 04/20/2020 10:51 AM CDT [facility] Hemoglobin 7.5(L) 12.0 - 15.6 gm/dL 04/20/2020 10:51 AM CDT [facility] Hematocrit 22.5(L) 35.9 - 45.5 % 04/20/2020 10:51 AM CDT [facility] MCV 84.3 80.7 - 98.3 fl 04/20/2020 10:51 AM CDT [facility] MCH 28.1 26.7 - 34.0 pg 04/20/2020 10:51 AM CDT [facility] MCHC 33.3 30.8 - 35.9 gm/dL 04/20/2020 10:51 AM CDT [facility] Platelet Count 165 153 - 416 x10E9/L 04/20/2020 10:51 AM CDT [facility] RDW-CV 18.8(H) 12.1 - 14.9 % 04/20/2020 10:51 AM CDT [facility] MPV 12.1 9.4 - 12.9 fl 04/20/2020 10:51 AM CDT [facility] Neutrophils % 83.5(H) 44.0 - 73.0 % 04/20/2020 10:51 AM CDT [facility] Lymphocytes % 6.9(L) 20.0 - 43.0 % 04/20/2020 10:51 AM CDT [facility] Monocytes % 6.2 5.0 - 13.0 % 04/20/2020 10:51 AM CDT [facility] Eosinophils % 0.0 0.0 - 6.0 % 04/20/2020 10:51 AM CDT [facility] Basophils % 0.1 0.0 - 2.0 % 04/20/2020 10:51 AM CDT [facility] Immature Granulocytes 3.3(H) 0 - 1 % 04/20/2020 10:51 AM CDT [facility] Neutrophil Absolute 18.36(H) 2.01 - 7.14 x10E9/L 04/20/2020 10:51 AM CDT [facility] Lymphocytes Absolute 1.51 1.07 - 3.94 x10E9/L 04/20/2020 10:51 AM CDT [facility] Monocytes Absolute 1.36(H) 0.26 - 1.07 x10E9/L 04/20/2020 10:51 AM CDT [facility] Eosinophils Absolute 0.01 0 - 0.47 x10E9/L 04/20/2020 10:51 AM CDT [facility] Basophils Absolute 0.03 0 - 0.08 x10E9/L 04/20/2020 10:51 AM CDT [facility] Immature Granulocytes Absolute 0.72(H) 0.00 - 0.06 x10E9/L 04/20/2020 10:51 AM CDT [facility] nRBC Auto 2 /100 WBC 04/20/2020 10:51 AM CDT [facility] Blood BLOOD SPECIMEN / Unknown Lab Venipuncture / Unknown 04/20/2020 10:42 AM CDT 04/20/2020 10:41 AM CDT Maikel Ring MD LAB - HEMATOLOGY ORDERABLES Performing Organization Address City/State/[facility] Co de Phone Number [facility] [address] [place] [address] * HAPTOGLOBIN (04/20/2020 10:42 AM CDT) [facility] Haptoglobin 65 30 - 200 mg/dL 04/20/2020 11:06 AM CDT [facility] Blood BLOOD SPECIMEN / Unknown Lab Venipuncture / Unknown 04/20/2020 10:42 AM CDT 04/20/2020 10:42 AM CDT Turner Castillo MD LAB - CHEMISTRY MIRI GO Performing Organization Address [facility] Co de Phone Number [facility] [address] [place], [place] [phone] * (ABNORMAL) LDH BLOOD (04/20/2020 10:42 AM CDT) LDH 358(H) 125 - 220 U/L 04/20/2020 11:06 AM CDT [facility] Blood BLOOD SPECIMEN / Unknown Lab Venipuncture / Unknown 04/20/2020 10:42 AM CDT 04/20/2020 10:42 AM CDT Turner Castillo MD LAB - CHEMISTRY MIRI GO Performing Organization Address [facility] Co de Phone Number [facility] [address] [place] [address] * PTT (04/20/2020 10:41 AM CDT) Pathologist [facility] PTT 30.7 23.0 - 38.4 sec 04/20/2020 11:00 AM CDT [facility] Blood BLOOD SPECIMEN / Unknown Lab Venipuncture / Unknown 04/20/2020 10:41 AM CDT 04/20/2020 10:41 AM CDT Narrative [facility] - 04/20/2020 11:00 AM CDT Heparin Therapeutic Range for PTT: ??71.0 - 109.0 seconds. Turner Castillo MD LAB - COAGULATION OR DERABLES Performing Organization Address City/[facility] Co de Phone Number [facility] [address] [place] [address] * PT-INR (04/20/2020 10:41 AM CDT) PT 12.3 12.1 - 14.8 sec 04/20/2020 10:59 AM CDT [facility] INR 1.0 0.9 - 1.1 04/20/2020 10:59 AM CDT [facility] Blood BLOOD SPECIMEN / Unknown Lab Venipuncture / Unknown 04/20/2020 10:41 AM CDT 04/20/2020 10:41 AM CDT Narrative [facility] - 04/20/2020 10:59 AM CDT Conventional Warfarin Anticoagulant Therapy: INR Reference Range: ??2.0-3.0 Intensive Warfarin Anticoagulant Therapy: INR Reference Range: ? 2.5-3.5 Turner Castillo MD LAB - COAGULATION OR DERABLES Performing Organization Address City/State/[facility] Co de Phone Number [facility] [address] [place] [address] * TRANSFUSE RED BLOOD CELL LEUKOREDUCED UNIT(S) (04/20/2020 2:36 AM CDT) Shayna Chirinos MD NURSING - BLOOD P [facility] TRANSFUSION * TRANSFUSE RED BLOOD CELL LEUKOREDUCED UNIT(S), 1 Units (04/20/2020 2:36 AM CDT) Shayna Chriinos MD NURSING - BLOOD P [facility] TRANSFUSION * (ABNORMAL) CBC W AUTO DIFFERENTIAL (04/19/2020 9:38 PM CDT) [facility] WBC 22.0(H) 4.4 - 10.7 x10E9/L 04/19/2020 10:14 PM CDT [facility] WBC Corrected 04/19/2020 10:14 PM CDT [facility] RBC 2.18(L) 3.80 - 5.20 x10E12/L 04/19/2020 10:14 PM CDT [facility] Hemoglobin 6.4(L) 12.0 - 15.6 gm/dL 04/19/2020 10:14 PM CDT [facility] Hematocrit 18.4(LL) 35.9 - 45.5 % 04/19/2020 10:14 PM CDT [facility] MCV 84.4 80.7 - 98.3 fl 04/19/2020 10:14 PM CDT [facility] MCH 29.4 26.7 - 34.0 pg 04/19/2020 10:14 PM CDT [facility] MCHC 34.8 30.8 - 35.9 gm/dL 04/19/2020 10:14 PM CDT [facility] Platelet Count 136(L) 153 - 416 x10E9/L 04/19/2020 10:14 PM CDT [facility] RDW-CV 19.6(H) 12.1 - 14.9 % 04/19/2020 10:14 PM CDT [facility] MPV 12.9 9.4 - 12.9 fl 04/19/2020 10:14 PM CDT [facility] Neutrophils % 89.3(H) 44.0 - 73.0 % 04/19/2020 10:14 PM CDT [facility] Lymphocytes % 4.0(L) 20.0 - 43.0 % 04/19/2020 10:14 PM CDT [facility] Monocytes % 3.0(L) 5.0 - 13.0 % 04/19/2020 10:14 PM CDT [facility] Eosinophils % 0.8 0.0 - 6.0 % 04/19/2020 10:14 PM CDT [facility] Basophils % 0.1 0.0 - 2.0 % 04/19/2020 10:14 PM CDT [facility] Immature Granulocytes 2.8(H) 0 - 1 % 04/19/2020 10:14 PM CDT [facility] Neutrophil Absolute 19.62(H) 2.01 - 7.14 x10E9/L 04/19/2020 10:14 PM CDT [facility] Lymphocytes Absolute 0.87(L) 1.07 - 3.94 x10E9/L 04/19/2020 10:14 PM CDT [facility] Monocytes Absolute 0.66 0.26 - 1.07 x10E9/L 04/19/2020 10:14 PM CDT [facility] Eosinophils Absolute 0.17 0 - 0.47 x10E9/L 04/19/2020 10:14 PM CDT [facility] Basophils Absolute 0.03 0 - 0.08 x10E9/L 04/19/2020 10:14 PM CDT [facility] Immature Granulocytes Absolute 0.61(H) 0.00 - 0.06 x10E9/L 04/19/2020 10:14 PM CDT [facility] nRBC Auto 1 /100 WBC 04/19/2020 10:14 PM [facility] Blood BLOOD SPECIMEN / Unknown Lab Venipuncture / Unknown 04/19/2020 9:38 PM CDT 04/19/2020 10:03 PM CDT Turner Castillo MD LAB - HEMATOLOGY ORD ERABLES [facility] [address], [place] [id number] * (ABNORMAL) CBC W AUTO DIFFERENTIAL (04/19/2020 1:44 PM CDT) WBC 19.8(H) 4.4 - 10.7 x10E9/L 04/19/2020 1:48 PM CDT [facility] WBC Corrected 04/19/2020 1:48 PM CDT [facility] RBC 2.59(L) 3.80 - 5.20 x10E12/L 04/19/2020 1:48 PM CDT [facility] Hemoglobin 7.4(L) 12.0 - 15.6 gm/dL 04/19/2020 1:48 PM CDT [facility] Hematocrit 21.5(L) 35.9 - 45.5 % 04/19/2020 1:48 PM CDT [facility] MCV 83.0 80.7 - 98.3 fl 04/19/2020 1:48 PM CDT [facility] MCH 28.6 26.7 - 34.0 pg 04/19/2020 1:48 PM CDT [facility] MCHC 34.4 30.8 - 35.9 gm/dL 04/19/2020 1:48 PM CDT [facility] Platelet Count 146(L) 153 - 416 x10E9/L 04/19/2020 1:48 PM CDT [facility] RDW-CV 19.3(H) 12.1 - 14.9 % 04/19/2020 1:48 PM CDT [facility] MPV 11.8 9.4 - 12.9 fl 04/19/2020 1:48 PM CDT [facility] Neutrophils % 90.8(H) 44.0 - 73.0 % 04/19/2020 1:48 PM CDT [facility] Lymphocytes % 4.6(L) 20.0 - 43.0 % 04/19/2020 1:48 PM CDT [facility] Monocytes % 2.3(L) 5.0 - 13.0 % 04/19/2020 1:48 PM CDT [facility] Eosinophils % 0.0 0.0 - 6.0 % 04/19/2020 1:48 PM CDT [facility] Basophils % 0.2 0.0 - 2.0 % 04/19/2020 1:48 PM CDT [facility] Immature Granulocytes 2.1(H) 0 - 1 % 04/19/2020 1:48 PM CDT [facility] Neutrophil Absolute 17.95(H) 2.01 - 7.14 x10E9/L 04/19/2020 1:48 PM CDT [facility] Lymphocytes Absolute 0.91(L) 1.07 - 3.94 x10E9/L 04/19/2020 1:48 PM CDT [facility] Monocytes Absolute 0.46 0.26 - 1.07 x10E9/L 04/19/2020 1:48 PM CDT [facility] Eosinophils Absolute 0.00 0 - 0.47 x10E9/L 04/19/2020 1:48 PM CDT [facility] Basophils Absolute 0.03 0 - 0.08 x10E9/L 04/19/2020 1:48 PM CDT [facility] Immature Granulocytes Absolute 0.41(H) 0.00 - 0.06 x10E9/L 04/19/2020 1:48 PM CDT [facility] nRBC Auto 1 /100 WBC 04/19/2020 1:48 PM CDT [facility] Blood BLOOD SPECIMEN / Unknown Venipuncture / Unknown 04/19/2020 1:44 PM CDT 04/19/2020 1:43 PM CDT Turner Castillo MD LAB - HEMATOLOGY ORD ERABLES [facility] [address] [place] [address] * (ABNORMAL) GLUCOSE - POINT OF CARE (04/19/2020 9:02 AM CDT) [facility] Glucose WB/POC 122(H) 70 - 106 mg/dL 04/19/2020 11:57 PM CDT [facility] Specimen Type Arterial/C apillary 04/19/2020 11:57 PM CDT [facility] Blood BLOOD SPECIMEN / Unknown 04/19/2020 9:02 AM CDT 04/19/2020 11:57 PM CDT Phuong Frazier MD LAB - POINT OF CARE ORDERABLES [facility] [address] [place] [address] * (ABNORMAL) RENAL FUNCTION PANEL (04/19/2020 3:51 AM CDT) Glucose 136(H) 70 - 105 mg/dL 04/19/2020 4:40 AM CDT [facility] Sodium 137 136 - 145 mmol/L 04/19/2020 4:40 AM CDT [facility] Potassium 4.2 3.5 - 5.1 mmol/L 04/19/2020 4:40 AM CDT [facility] Chloride 112(H) 98 - 107 mmol/L 04/19/2020 4:40 AM CDT [facility] CO2 19(L) 23 - 31 mmol/L 04/19/2020 4:40 AM CDT [facility] Calcium 7.0(LL) 8.4 - 10.4 mg/dL 04/19/2020 4:40 AM CDT [facility] Anion Gap 6(L) 8 - 16 mmol/L 04/19/2020 4:40 AM CDT [facility] BUN 23(H) 7 - 18.7 mg/dL 04/19/2020 4:40 AM CDT [facility] Creatinine 0.84 0.57 - 1.11 mg/dL 04/19/2020 4:40 AM CDT [facility] Albumin 1.7(L) 3.5 - 5.2 gm/dL 04/19/2020 4:40 AM CDT [facility] Phosphorus 4.0 2.3 - 4.7 mg/dL 04/19/2020 4:40 AM CDT [facility] eGFR by MDRD >60 >60 mL/min/1.7 3m2 04/19/2020 4:40 AM CDT [facility] eGFR by MDRD >60 >60 mL/min/1.7 3m2 04/19/2020 4:40 AM CDT [facility] Blood BLOOD SPECIMEN / Unknown Venipuncture / Unknown 04/19/2020 3:51 AM CDT 04/19/2020 4:05 AM CDT Clem Brown MD LAB - CHEMISTRY MIRI GO Performing Organization Address [facility] Co de Phone Number [facility] [address] [place] [address] * (ABNORMAL) MAGNESIUM BLOOD (04/19/2020 3:51 AM CDT) Pathologist [facility] Magnesium 1.4(L) 1.6 - 2.6 mg/dL 04/19/2020 4:32 AM CDT [facility] Blood BLOOD SPECIMEN / Unknown Venipuncture / Unknown 04/19/2020 3:51 AM CDT 04/19/2020 4:05 AM CDT Clem Brown MD LAB - CHEMISTRY MIRI GO Performing Organization Address [facility] Co de Phone Number [facility] [address] [place] [address] * LACTIC ACID BLOOD (04/19/2020 3:51 AM CDT) Pathologist [facility] Lactic Acid 1.2 0.5 - 2.2 mmol/L 04/19/2020 4:27 AM CDT [facility] Blood BLOOD SPECIMEN / Unknown Venipuncture / Unknown 04/19/2020 3:51 AM CDT 04/19/2020 4:05 AM CDT Maikel Ring MD LAB - CHEMISTRY [place] Performing Organization Address [facility] Co de Phone Number [facility] [address] [place] [address] * (ABNORMAL) CBC W AUTO DIFFERENTIAL (04/19/2020 3:51 AM CDT) WBC 19.6(H) 4.4 - 10.7 x10E9/L 04/19/2020 4:19 AM CDT [facility] WBC Corrected 04/19/2020 4:19 AM CDT [facility] RBC 2.70(L) 3.80 - 5.20 x10E12/L 04/19/2020 4:19 AM CDT [facility] Hemoglobin 7.6(L) 12.0 - 15.6 gm/dL 04/19/2020 4:19 AM CDT [facility] Hematocrit 21.7(L) 35.9 - 45.5 % 04/19/2020 4:19 AM CDT [facility] MCV 80.4(L) 80.7 - 98.3 fl 04/19/2020 4:19 AM CDT [facility] MCH 28.1 26.7 - 34.0 pg 04/19/2020 4:19 AM CDT [facility] MCHC 35.0 30.8 - 35.9 gm/dL 04/19/2020 4:19 AM CDT [facility] Platelet Count 124(L) 153 - 416 x10E9/L 04/19/2020 4:19 AM [facility] RDW-CV 18.2(H) 12.1 - 14.9 % 04/19/2020 4:19 AM CDT [facility] MPV 12.5 9.4 - 12.9 fl 04/19/2020 4:19 AM [facility] Neutrophils % 85.7(H) 44.0 - 73.0 % 04/19/2020 4:19 AM CDT [facility] [facility] Lymphocytes % 6.7(L) 20.0 - 43.0 % 04/19/2020 4:19 AM CDT [facility] Monocytes % 6.7 5.0 - 13.0 % 04/19/2020 4:19 AM T [facility] Eosinophils % 0.0 0.0 - 6.0 % 04/19/2020 4:19 AM [facility] Basophils % 0.1 0.0 - 2.0 % 04/19/2020 4:19 AM CDT [facility] Immature Granulocytes 0.8 0 - 1 % 04/19/2020 4:19 AM CDT [facility] Neutrophil Absolute 16.84(H) 2.01 - 7.14 x10E9/L 04/19/2020 4:19 AM CDT [facility] Lymphocytes Absolute 1.32 1.07 - 3.94 x10E9/L 04/19/2020 4:19 AM CDT [facility] Monocytes Absolute 1.31(H) 0.26 - 1.07 x10E9/L 04/19/2020 4:19 AM CDT [facility] Eosinophils Absolute 0.00 0 - 0.47 x10E9/L 04/19/2020 4:19 AM CDT [facility] Basophils Absolute 0.02 0 - 0.08 x10E9/L 04/19/2020 4:19 AM CDT [facility] Immature Granulocytes Absolute 0.15(H) 0.00 - 0.06 x10E9/L 04/19/2020 4:19 AM CDT [facility] nRBC Auto 1 /100 WBC 04/19/2020 4:19 AM CDT [facility] Blood BLOOD SPECIMEN / Unknown Venipuncture / Unknown 04/19/2020 3:51 AM CDT 04/19/2020 4:05 AM CDT Clem Brown MD LAB - HEMATOLOGY ORD ERABLES Performing Organization Address City/[facility]/ZIP Co de Phone Number [facility] [address] [place] [address] [phone] * (ABNORMAL) HAPTOGLOBIN (04/19/2020 3:51 AM CDT) Haptoglobin 9(L) 30 - 200 mg/dL 04/19/2020 4:36 AM CDT [facility] Blood BLOOD SPECIMEN / Unknown Venipuncture / Unknown 04/19/2020 3:51 AM CDT 04/19/2020 4:05 AM CDT Heraclio Dave MD LAB - CHEMISTRY MIRI GO [facility] [address] [place] [phone] * PT PTT PANEL (04/19/2020 3:50 AM CDT) PT 12.6 12.1 - 14.8 sec 04/19/2020 4:27 AM CDT [facility] INR 1.0 0.9 - 1.1 04/19/2020 4:27 AM CDT [facility] PTT 27.8 23.0 - 38.4 sec 04/19/2020 4:27 AM CDT [facility] Blood BLOOD SPECIMEN / Unknown Venipuncture / Unknown 04/19/2020 3:50 AM CDT 04/19/2020 4:05 AM CDT Narrative [facility] - 04/19/2020 4:27 AM CDT Conventional Warfarin Anticoagulant Therapy: INR Reference Range: ??2.0-3.0 Intensive Warfarin Anticoagulant Therapy: INR Reference Range: ? 2.5-3.5 Heparin Therapeutic Range for PTT: ??71.0 - 109.0 seconds. Clem Brown MD LAB - COAGULATION OR DERABLES Performing Organization Address City/[facility]/ZIP Co de Phone Number [facility] [address] [place] [address] * TRANSFUSE RED BLOOD CELL LEUKOREDUCED UNIT(S) (04/19/2020 1:10 AM CDT) Maikel Ring MD NURSING - BLOOD P [place] TRANSFUSION * TRANSFUSE RED BLOOD CELL LEUKOREDUCED UNIT(S), 1 Units (04/19/2020 1:10 AM CDT) Maikel Ring MD NURSING - BLOOD P [place] TRANSFUSION * (ABNORMAL) GLUCOSE - POINT OF CARE (04/18/2020 11:42 PM CDT) [facility] Glucose WB/POC 127(H) 70 - 106 mg/dL 04/18/2020 11:52 PM CDT [facility] Specimen Type Arterial/C apillary 04/18/2020 11:52 PM CDT [facility] Blood BLOOD SPECIMEN / Unknown 04/18/2020 11:42 PM CDT 04/18/2020 11:52 PM CDT Phuong Frazier MD LAB - POINT OF CARE ORDERABLES Performing Organization Address [facility]/ZIP Co de Phone Number [facility] [address] [place], [place] [phone] * TRANSFUSE RED BLOOD CELL LEUKOREDUCED UNIT(S) (04/18/2020 11:39 PM CDT) Mayuri Norton MD NURSING - BLOOD PROD TRANSFUSION * TRANSFUSE RED BLOOD CELL LEUKOREDUCED UNIT(S), 2 Units (04/18/2020 11:39 PM CDT) Mayuri Norton MD NURSING - BLOOD PROD TRANSFUSION * PT PTT PANEL (04/18/2020 10:22 PM CDT) Pathologist [facility] PT 13.3 12.1 - 14.8 sec 04/18/2020 10:44 PM CDT [facility] INR 1.1 0.9 - 1.1 04/18/2020 10:44 PM CDT [facility] PTT 29.4 23.0 - 38.4 sec 04/18/2020 10:44 PM CDT [facility] Blood BLOOD SPECIMEN / Unknown Venipuncture / Unknown 04/18/2020 10:22 PM CDT 04/18/2020 10:28 PM CDT [facility] LABORATORY - 04/18/2020 10:44 PM CDT Conventional Warfarin Anticoagulant Therapy: INR Reference Range: ??2.0-3.0 Intensive Warfarin Anticoagulant Therapy: INR Reference Range: ? 2.5-3.5 Heparin Therapeutic Range for PTT: ??71.0 - 109.0 seconds. Clem Brown MD LAB - COAGULATION OR DERABLES [facility] [address] [place] [place] [phone] * (ABNORMAL) CBC W AUTO DIFFERENTIAL (04/18/2020 10:22 PM CDT) Pathologist [facility] WBC 19.4(H) 4.4 - 10.7 x10E9/L 04/18/2020 10:48 PM CDT [facility] WBC Corrected 04/18/2020 10:48 PM CDT [facility] RBC 2.34(L) 3.80 - 5.20 x10E12/L 04/18/2020 10:48 PM CDT [facility] Hemoglobin 6.8(L) 12.0 - 15.6 gm/dL 04/18/2020 10:48 PM CDT [facility] Hematocrit 19.0(LL) 35.9 - 45.5 % 04/18/2020 10:48 PM CDT [facility] MCV 81.2 80.7 - 98.3 fl 04/18/2020 10:48 PM CDT [facility] MCH 29.1 26.7 - 34.0 pg 04/18/2020 10:48 PM CDT [facility] MCHC 35.8 30.8 - 35.9 gm/dL 04/18/2020 10:48 PM CDT [facility] Platelet Count 103(L) 153 - 416 x10E9/L 04/18/2020 10:48 PM [facility] RDW-CV 16.9(H) 12.1 - 14.9 % 04/18/2020 10:48 PM [facility] MPV 13.9(H) 9.4 - 12.9 fl 04/18/2020 10:48 PM [facility] Neutrophils % 91.3(H) 44.0 - 73.0 % 04/18/2020 10:48 PM [facility] Lymphocytes % 4.9(L) 20.0 - 43.0 % 04/18/2020 10:48 PM [facility] Monocytes % 3.1(L) 5.0 - 13.0 % 04/18/2020 10:48 PM [facility] Eosinophils % 0.0 0.0 - 6.0 % 04/18/2020 10:48 PM [facility] Basophils % 0.1 0.0 - 2.0 % 04/18/2020 10:48 PM [facility] Immature Granulocytes 0.6 0 - 1 % 04/18/2020 10:48 PM [facility] Neutrophil Absolute 17.74(H) 2.01 - 7.14 x10E9/L 04/18/2020 10:48 PM [facility] Lymphocytes Absolute 0.96(L) 1.07 - 3.94 x10E9/L 04/18/2020 10:48 PM [facility] Monocytes Absolute 0.60 0.26 - 1.07 x10E9/L 04/18/2020 10:48 PM [facility] Eosinophils Absolute 0.00 0 - 0.47 x10E9/L 04/18/2020 10:48 PM T [facility] Basophils Absolute 0.02 0 - 0.08 x10E9/L 04/18/2020 10:48 PM [facility] Immature Granulocytes Absolute 0.12(H) 0.00 - 0.06 x10E9/L 04/18/2020 10:48 PM [facility] nRBC Auto 0 /100 WBC 04/18/2020 10:48 PM CDT [facility] Blood BLOOD SPECIMEN / Unknown Venipuncture / Unknown 04/18/2020 10:22 PM CDT 04/18/2020 10:28 PM CDT Clem Brown MD LAB - HEMATOLOGY ORD ERABLES [facility] [address] [place] [id number] * (ABNORMAL) GLUCOSE - POINT OF CARE (04/18/2020 8:54 PM CDT) Glucose WB/POC 128(H) 70 - 106 mg/dL 04/18/2020 11:52 PM CDT [facility] Specimen Type Arterial/C apillary 04/18/2020 11:52 PM CDT [facility] Blood BLOOD SPECIMEN / Unknown 04/18/2020 8:54 PM CDT 04/18/2020 11:52 PM CDT Phuong Frazier MD LAB - POINT OF CARE ORDERABLES Performing Organization Address City/[facility]/ZIP Co de Phone Number [facility] [address] [place] [address] * PT PTT PANEL (04/18/2020 6:09 PM CDT) PT 13.4 12.1 - 14.8 sec 04/18/2020 6:33 PM CDT [facility] INR 1.1 0.9 - 1.1 04/18/2020 6:33 PM CDT [facility] PTT 32.0 23.0 - 38.4 sec 04/18/2020 6:33 PM CDT [facility] Blood BLOOD SPECIMEN / Unknown Venipuncture / Unknown 04/18/2020 6:09 PM CDT 04/18/2020 6:15 PM CDT Narrative [facility] - 04/18/2020 6:33 PM CDT Conventional Warfarin Anticoagulant Therapy: INR Reference Range: ??2.0-3.0 Intensive Warfarin Anticoagulant Therapy: INR Reference Range: ? 2.5-3.5 Heparin Therapeutic Range for PTT: ??71.0 - 109.0 seconds. Clem Brown MD LAB - COAGULATION OR DERABLES [facility] [address] [place] [address] * (ABNORMAL) CBC W AUTO DIFFERENTIAL (04/18/2020 6:09 PM CDT) WBC 17.3(H) 4.4 - 10.7 x10E9/L 04/18/2020 6:28 PM CDT [facility] WBC Corrected 04/18/2020 6:28 PM CDT [facility] RBC 2.67(L) 3.80 - 5.20 x10E12/L 04/18/2020 6:28 PM CDT [facility] Hemoglobin 7.4(L) 12.0 - 15.6 gm/dL 04/18/2020 6:28 PM CDT [facility] Hematocrit 21.7(L) 35.9 - 45.5 % 04/18/2020 6:28 PM CDT [facility] MCV 81.3 80.7 - 98.3 fl 04/18/2020 6:28 PM CDT [facility] MCH 27.7 26.7 - 34.0 pg 04/18/2020 6:28 PM CDT [facility] MCHC 34.1 30.8 - 35.9 gm/dL 04/18/2020 6:28 PM CDT [facility] Platelet Count 73(L) 153 - 416 x10E9/L 04/18/2020 6:28 PM CDT [facility] RDW-CV 16.6(H) 12.1 - 14.9 % 04/18/2020 6:28 PM CDT [facility] Neutrophils % 91.1(H) 44.0 - 73.0 % 04/18/2020 6:28 PM CDT [facility] Lymphocytes % 5.9(L) 20.0 - 43.0 % 04/18/2020 6:28 PM CDT [facility] Monocytes % 2.2(L) 5.0 - 13.0 % 04/18/2020 6:28 PM CDT [facility] Eosinophils % 0.0 0.0 - 6.0 % 04/18/2020 6:28 PM CDT [facility] Basophils % 0.1 0.0 - 2.0 % 04/18/2020 6:28 PM CDT [facility] Immature Granulocytes 0.7 0 - 1 % 04/18/2020 6:28 PM CDT [facility] Neutrophil Absolute 15.79(H) 2.01 - 7.14 x10E9/L 04/18/2020 6:28 PM CDT [facility] Lymphocytes Absolute 1.02(L) 1.07 - 3.94 x10E9/L 04/18/2020 6:28 PM CDT [facility] Monocytes Absolute 0.38 0.26 - 1.07 x10E9/L 04/18/2020 6:28 PM CDT [facility] Eosinophils Absolute 0.00 0 - 0.47 x10E9/L 04/18/2020 6:28 PM CDT [facility] Basophils Absolute 0.02 0 - 0.08 x10E9/L 04/18/2020 6:28 PM CDT [facility] Immature Granulocytes Absolute 0.12(H) 0.00 - 0.06 x10E9/L 04/18/2020 6:28 PM CDT [facility] nRBC Auto 0 /100 WBC 04/18/2020 6:28 PM CDT [facility] Blood BLOOD SPECIMEN / Unknown Venipuncture / Unknown 04/18/2020 6:09 PM CDT 04/18/2020 6:15 PM CDT Clem Brown MD LAB - HEMATOLOGY ORD ERABLES [facility] [address] [place] [address] * GLUCOSE - POINT OF CARE (04/18/2020 4:49 PM CDT) [facility] Glucose WB/POC 103 70 - 106 mg/dL 04/18/2020 11:52 PM CDT [facility] Specimen Type Arterial/C apillary 04/18/2020 11:52 PM CDT [facility] Blood BLOOD SPECIMEN / Unknown 04/18/2020 4:49 PM CDT 04/18/2020 11:52 PM CDT Phuong Frazier MD LAB - POINT OF CARE ORDERABLES [facility] [address] [place] [address] * XR ABDOMEN KUB (04/18/2020 4:29 PM [...] Auto 12.4 x10E9/L 04/18/2020 3:46 PM CDT [facility] WBC Corrected 04/18/2020 3:46 PM CDT [facility] nRBC 04/18/2020 3:46 PM CDT [facility] Neutrophil % Manual 86(H) 44 - 73 % 04/18/2020 3:46 PM CDT [facility] Lymphocytes % Manual 5(L) 20 - 43 % 04/18/2020 3:46 PM CDT [facility] Monocytes % Manual 2(L) 5 - 13 % 04/18/2020 3:46 PM CDT [facility] Atypical Lymphocyte % Manual 7(H) <=0 % 04/18/2020 3:46 PM CDT [facility] Cells Counted 100 # cells 04/18/2020 3:46 PM CDT [facility] Platelet Estimation Decreased( A) Normal, Adequate platelets 04/18/2020 3:46 PM CDT [facility] WBC Morph Normal 04/18/2020 3:46 PM CDT [facility] Anisocytosis 1+(A) None 04/18/2020 3:46 PM CDT [facility] Blood BLOOD SPECIMEN / Unknown Venipuncture / Unknown 04/18/2020 2:29 PM CDT 04/18/2020 2:51 PM CDT Clem Brown MD LAB - HEMATOLOGY ORD ERABLES [facility] [address] [place] [address] * PT PTT PANEL (04/18/2020 2:29 PM CDT) PT 13.8 12.1 - 14.8 sec 04/18/2020 3:16 PM CDT [facility] INR 1.1 0.9 - 1.1 04/18/2020 3:16 PM CDT [facility] PTT 33.5 23.0 - 38.4 sec 04/18/2020 3:16 PM CDT [facility] Blood BLOOD SPECIMEN / Unknown Venipuncture / Unknown 04/18/2020 2:29 PM CDT 04/18/2020 2:51 PM CDT Narrative [facility] - 04/18/2020 3:16 PM CDT Conventional Warfarin Anticoagulant Therapy: INR Reference Range: ??2.0-3.0 Intensive Warfarin Anticoagulant Therapy: INR Reference Range: ? 2.5-3.5 Heparin Therapeutic Range for PTT: ??71.0 - 109.0 seconds. Clem Brown MD LAB - COAGULATION OR DERABLES Performing Organization Address City/[facility]/ZIP Co de Phone Number [facility] [address] [place] [address] * (ABNORMAL) CBC W AUTO DIFFERENTIAL (04/18/2020 2:29 PM CDT) WBC 12.4(H) 4.4 - 10.7 x10E9/L 04/18/2020 3:13 PM CDT [facility] WBC Corrected 04/18/2020 3:13 PM CDT [facility] RBC 2.65(L) 3.80 - 5.20 x10E12/L 04/18/2020 3:13 PM CDT [facility] Hemoglobin 7.7(L) 12.0 - 15.6 gm/dL 04/18/2020 3:13 PM CDT [facility] Hematocrit 21.9(L) 35.9 - 45.5 % 04/18/2020 3:13 PM CDT [facility] MCV 82.6 80.7 - 98.3 fl 04/18/2020 3:13 PM CDT [facility] MCH 29.1 26.7 - 34.0 pg 04/18/2020 3:13 PM CDT [facility] MCHC 35.2 30.8 - 35.9 gm/dL 04/18/2020 3:13 PM CDT [facility] Platelet Count 48(L) 153 - 416 x10E9/L 04/18/2020 3:13 PM CDT [facility] RDW-CV 16.6(H) 12.1 - 14.9 % 04/18/2020 3:13 PM CDT [facility] nRBC Auto 0 /100 WBC 04/18/2020 3:13 PM CDT [facility] Blood BLOOD SPECIMEN / Unknown Venipuncture / Unknown 04/18/2020 2:29 PM CDT 04/18/2020 2:51 PM CDT Clem Brown MD LAB - HEMATOLOGY ORD ERABLES [facility] [address] [place] [address] * GLUCOSE - POINT OF CARE (04/18/2020 2:28 PM CDT) [facility] Glucose WB/POC 80 70 - 106 mg/dL 04/18/2020 2:43 PM CDT [facility] Specimen Type Arterial/C apillary 04/18/2020 2:43 PM CDT [facility] Blood BLOOD SPECIMEN / Unknown 04/18/2020 2:28 PM CDT 04/18/2020 2:43 PM CDT Phuong Frazier MD LAB - POINT OF CARE ORDERABLES Performing Organization Address [facility]/ZIP Co de Phone Number [facility] [address] [place] [address] * (ABNORMAL) LACTIC ACID BLOOD (04/18/2020 12:25 PM CDT) [facility] Lactic Acid 2.8(H) 0.5 - 2.2 mmol/L 04/18/2020 1:30 PM CDT [facility] Blood BLOOD SPECIMEN / Unknown Venipuncture / Unknown 04/18/2020 12:25 PM CDT 04/18/2020 12:52 PM CDT Clem Brown MD LAB - CHEMISTRY MIRI GO Performing Organization Address [facility] Co de Phone Number [facility] [address] [place] [address] * (ABNORMAL) BLOOD GASES ARTERIAL (04/18/2020 12:21 PM CDT) [facility] pH Arterial 7.39 7.35 - 7.45 pH 04/18/2020 12:30 PM CDT [facility] RESP THERAPY pCO2 Arterial 34(L) 35 - 45 mm hg 04/18/2020 12:30 PM CDT [facility] RESP THERAPY Comment:L pO2 Arterial 108(H) 80 - 100 mm hg 04/18/2020 12:30 PM CDT [facility] RESP THERAPY Comment:H HCO3 Arterial 20(L) 22 - 26 mmol/L 04/18/2020 12:30 PM CDT [facility] RESP THERAPY Comment:L BE Arterial -4.3(L) -2.0 - 2.0 mmol/L 04/18/2020 12:30 PM CDT [facility] RESP THERAPY Comment:L O2 Saturation Arterial 98 90 - 100 % 04/18/2020 12:30 PM CDT [facility] RESP THERAPY Hemoglobin Arterial 8.4(L) 14.0 - 16.0 gm/dL 04/18/2020 12:30 PM CDT [facility] RESP THERAPY Carboxyhemoglobin Arterial 0.3 0.0 - 2.5 % 04/18/2020 12:30 PM CDT [facility] RESP THERAPY Methemoglobin Arterial 1.2 0.0 - 2.0 % 04/18/2020 12:30 PM CDT [facility] RESP THERAPY Oxyhemoglobin Arterial 96 % 04/18/2020 12:30 PM CDT [facility] RESP THERAPY Mode CMV 04/18/2020 12:30 PM CDT [facility] RESP THERAPY Aamir's Test N/A 04/18/2020 12:30 PM CDT [facility] RESP THERAPY FI O2 30 % 04/18/2020 12:30 PM CDT [facility] RESP THERAPY Tidal Volume 450 mL 04/18/2020 12:30 PM CDT [facility] RESP THERAPY PEEP (cmH2O) 8.0 04/18/2020 12:30 PM CDT [facility] RESP THERAPY Respiratory Rate 20.0 04/18/20 20 12:30 PM CDT [facility] RESP THERAPY Sample Site Art Line 04/18/2020 12:30 PM CDT [facility] RESP THERAPY Sample Type Arterial 04/18/2020 12:30 PM CDT [facility] RESP THERAPY Press Writer ID [id number] 04/18/2020 12:30 PM CDT [facility] RESP THERAPY Blood, arterial ARTERIAL BLOOD SPECIMEN / Unknown 04/18/2020 12:21 PM CDT 04/18/2020 12:21 PM CDT Clem Brown MD LAB - BLOOD GASES OR DERABLES [facility] RESP THERAPY [address] [phone] * TRANSFUSE RED BLOOD CELL LEUKOREDUCED UNIT(S) (04/18/2020 11:52 AM CDT) Mayuri Norton MD NURSING - BLOOD PROD TRANSFUSION * (ABNORMAL) GLUCOSE - POINT OF CARE (04/18/2020 11:17 AM CDT) [facility] Glucose WB/POC 118(H) 70 - 106 mg/dL 04/18/2020 2:43 PM CDT [facility] Specimen Type Arterial/C apillary 04/18/2020 2:43 PM CDT [facility] Blood BLOOD SPECIMEN / Unknown 04/18/2020 11:17 AM CDT 04/18/2020 2:43 PM CDT Phuong Frazier MD LAB - POINT OF CARE ORDERABLES Performing Organization Address City/State/[facility] Co de Phone Number [facility] [address] [place] [address] * TRANSFUSE FRESH FROZEN PLASMA UNIT(S) (04/18/2020 [...] BLOOD GASES ARTERIAL (04/18/2020 9:57 AM CDT) [facility] pH Arterial 7.35 7.35 - 7.45 pH 04/18/2020 10:05 AM CDT [facility] RESP THERAPY Comment:L pCO2 Arterial 33(L) 35 - 45 mm hg 04/18/2020 10:05 AM [facility] RESP THERAPY Comment:L pO2 Arterial 127(H) 80 - 100 mm hg 04/18/2020 10:05 AM [facility] RESP THERAPY Comment:H HCO3 Arterial 18(L) 22 - 26 mmol/L 04/18/2020 10:05 AM [facility] RESP THERAPY Comment:L BE Arterial -7.4(L) -2.0 - 2.0 mmol/L 04/18/2020 10:05 AM [facility] RESP THERAPY Comment:L O2 Saturation Arterial 98 90 - 100 % 04/18/2020 10:05 AM [facility] RESP THERAPY Hemoglobin Arterial 6.0(L) 14.0 - 16.0 gm/dL 04/18/2020 10:05 AM [facility] RESP THERAPY Carboxyhemoglobin Arterial 0.3 0.0 - 2.5 % 04/18/2020 10:05 AM [facility] RESP THERAP[facility] Methemoglobin Arterial 1.4 0.0 - 2.0 % 04/18/2020 10:05 AM [facility] RESP THERAPY Oxyhemoglobin Arterial 96 % 04/18/2020 10:05 AM [facility] RESP THERAP[facility] Mode CMV 04/18/2020 10:05 AM [facility] RESP THERAPY Aamir's Test N/A 04/18/2020 10:05 AM [facility] RES[facility]ERAP[facility] FI O2 30 % 04/18/2020 10:05 AM [facility] RES[facility]ERAP[facility] Tidal Volume 450 mL 04/18/2020 10:05 AM [facility] RESP THERAPY PEEP (cmH2O) 8.0 04/18/2020 10:05 AM [facility] RES[facility]ERAP[facility] Respiratory Rate 20.0 04/18/20 20 10:05 AM [facility] RES[facility] THERAPY Sample Site Art Line 04/18/2020 10:05 AM [facility] RES[facility]ERAP[facility] Sample Type Arterial 04/18/2020 10:05 AM [facility] RESP THERAPY Press Writer ID [id number] 04/18/2020 10:05 AM [facility] RESP THERAPY Blood, arterial ARTERIAL BLOOD SPECIMEN / Unknown 04/18/2020 9:57 AM CDT 04/18/2020 9:57 AM CDT Snehal Crowe MD LAB - BLOO D GASES ORDERABLES Performing Organization Address City/State/[facility] Co de Phone Number [facility] RESP THERAPY [address] [place] [address] * (ABNORMAL) LACTIC ACID BLOOD (04/18/2020 9:37 AM CDT) [facility] Lactic Acid 4.6(HH) 0.5 - 2.2 mmol/L 04/18/2020 10:12 AM CDT [facility] Blood BLOOD SPECIMEN / Unknown Venipuncture / Unknown 04/18/2020 9:37 AM CDT 04/18/2020 9:41 AM CDT Snehal Crowe MD LAB - CHEM ISTRY ORDERABLES Performing Organization Address [facility] Co de Phone Number [facility] [address] [place] [address] * (ABNORMAL) CBC W AUTO DIFFERENTIAL (04/18/2020 9:30 AM CDT) [facility] WBC 16.9(H) 4.4 - 10.7 x10E9/L 04/18/2020 9:59 AM CDT [facility] WBC Corrected 04/18/2020 9:59 AM CDT [facility] RBC 2.20(L) 3.80 - 5.20 x10E12/L 04/18/2020 9:59 AM CDT [facility] Hemoglobin 6.3(L) 12.0 - 15.6 gm/dL 04/18/2020 9:59 AM CDT [facility] Hematocrit 18.8(LL) 35.9 - 45.5 % 04/18/2020 9:59 AM CDT [facility] MCV 85.5 80.7 - 98.3 fl 04/18/2020 9:59 AM CDT [facility] MCH 28.6 26.7 - 34.0 pg 04/18/2020 9:59 AM CDT [facility] MCHC 33.5 30.8 - 35.9 gm/dL 04/18/2020 9:59 AM CDT [facility] Platelet Count 54(L) 153 - 416 x10E9/L 04/18/2020 9:59 AM CDT [facility] RDW-CV 15.9(H) 12.1 - 14.9 % 04/18/2020 9:59 AM CDT [facility] Neutrophils % 90.6(H) 44.0 - 73.0 % 04/18/2020 9:59 AM CDT [facility] Lymphocytes % 4.3(L) 20.0 - 43.0 % 04/18/2020 9:59 AM CDT [facility] Monocytes % 2.2(L) 5.0 - 13.0 % 04/18/2020 9:59 AM CDT [facility] Eosinophils % 1.2 0.0 - 6.0 % 04/18/2020 9:59 AM CDT [facility] Basophils % 0.2 0.0 - 2.0 % 04/18/2020 9:59 AM CDT [facility] Immature Granulocytes 1.5(H) 0 - 1 % 04/18/2020 9:59 AM CDT [facility] Neutrophil Absolute 15.33(H) 2.01 - 7.14 x10E9/L 04/18/2020 9:59 AM CDT [facility] Lymphocytes Absolute 0.73(L) 1.07 - 3.94 x10E9/L 04/18/2020 9:59 AM CDT [facility] Monocytes Absolute 0.38 0.26 - 1.07 x10E9/L 04/18/2020 9:59 AM CDT [facility] Eosinophils Absolute 0.21 0 - 0.47 x10E9/L 04/18/2020 9:59 AM CDT [facility] Basophils Absolute 0.03 0 - 0.08 x10E9/L 04/18/2020 9:59 AM T [facility] Immature Granulocytes Absolute 0.26(H) 0.00 - 0.06 x10E9/L 04/18/2020 9:59 AM CDT [facility] nRBC Auto 0 /100 WBC 04/18/2020 9:59 AM T [facility] Blood BLOOD SPECIMEN / Unknown Venipuncture / Unknown 04/18/2020 9:30 AM CDT 04/18/2020 9:42 AM CDT Clem Brown MD LAB - HEMATOLOGY ORD ERABLES [facility] [address] [place] [address] * IMMUNOGLOBULINS IGG/IGM/IGA PANEL (04/18/2020 9:30 AM CDT) Pathologist [facility] IgA 82 65 - 421 mg/dL 04/18/2020 3:33 PM CDT [facility] IgG 1,629 552-1,631 mg/dL 04/18/2020 3:33 PM CDT [facility] IgM 149 33 - 293 mg/dL 04/18/2020 3:33 PM CDT [facility] Blood BLOOD SPECIMEN / Unknown Venipuncture / Unknown 04/18/2020 9:30 AM CDT 04/18/2020 9:42 AM CDT Heraclio Dave MD LAB - CHEMISTRY MIRI GO Performing Organization Address [facility]/ZIP Co de Phone Number [facility] [address] [place] [phone] * (ABNORMAL) LDH BLOOD (04/18/2020 9:30 AM CDT) [facility] LDH 337(H) 125 - 220 U/L 04/18/2020 10:14 AM CDT [facility] Blood BLOOD SPECIMEN / Unknown Venipuncture / Unknown 04/18/2020 9:30 AM CDT 04/18/2020 9:42 AM CDT Heraclio Dave MD LAB - CHEMISTRY MIRI GO [facility] [address] [place] [phone] * (ABNORMAL) RETIC COUNT (04/18/2020 9:30 AM CDT) [facility] Reticulocyte Count 1.77(H) 0.5 - 1.7 % 04/18/2020 9:52 AM CDT [facility] Reticulocyte Absolute 0.0384 0.0041 - 0.0971 x10E6/uL 04/18/2020 9:52 AM CDT [facility] Reticulocyte Immature Fractionated 36.6(H) 0.9 - 14.3 % 04/18/2020 9:52 AM CDT [facility] Hemoglobin Retic 30.2 27.8 - 36.8 pg 04/18/2020 9:52 AM CDT [facility] Blood BLOOD SPECIMEN / Unknown Venipuncture / Unknown 04/18/2020 9:30 AM CDT 04/18/2020 9:42 AM CDT Heraclio Dave MD LAB - HEMATOLOGY ORD ERABLES Performing Organization Address City/[facility]/ZIP Co de Phone Number [facility] [address] [place] [phone] * VITAMIN B12 (04/18/2020 9:30 AM CDT) Vitamin B12 220 213 - 816 pg/mL 04/18/2020 10:43 AM CDT [facility] Blood BLOOD SPECIMEN / Unknown Venipuncture / Unknown 04/18/2020 9:30 AM CDT 04/18/2020 9:42 AM CDT Heraclio Dave MD LAB - CHEMISTRY ORDE RABMARTIN Performing Organization Address City/[facility] Co de Phone Number [facility] [address] [place] [phone] * REF LAB COMMENT (04/18/2020 9:29 AM CDT) Comment Comment 04/20/2020 7:06 PM CDT [facility] ([facility]) Comment: Severe deficiency of [id number] (less than 10% activity) is a relatively specific finding in patients with a clinical diagnosis of either hereditary or acquired thrombotic thrombocytopenic purpura (TTP). Normal to moderately reduced JKYWQD03 activity results do not exclude a diagnosis of TTP. Conditions that could have JXDUXK27 activity greater than 10% include hemolytic uremic syndrome (HUS), atypical hemolytic uremic syndrome (aHUS), and other thrombotic microangiopathies associated with hematopoietic stem cell and solid organ transplantation, liver disease, DIC, sepsis, , or effects of certain medications (eg, clopidogrel, cyclosporine, mitomycin C, quinine). Blood BLOOD SPECIMEN / Unknown Venipuncture / Unknown 04/18/2020 9:29 AM CDT 04/18/2020 9:42 AM CDT Narrative [facility] ([facility]) - 04/20/2020 7:06 PM CDT Performed at: ??01 - [address] ??[id number] Supervisor Personnel Clerks: Kiran Guerra MD, Phone: ??[phone] Heraclio Dave MD LAB - CHEMISTRY MIRI GO Performing Organization Address [facility] Co de Phone Number [facility] ([facility]) [address] [place] [address] * (ABNORMAL) PT PTT PANEL (04/18/2020 9:29 AM CDT) Pathologist [facility] PT 14.3 12.1 - 14.8 sec 04/18/2020 10:00 AM CDT [facility] INR 1.2(H) 0.9 - 1.1 04/18/2020 10:00 AM CDT [facility] PTT 27.0 23.0 - 38.4 sec 04/18/2020 10:00 AM CDT [facility] Blood BLOOD SPECIMEN / Unknown Venipuncture / Unknown 04/18/2020 9:29 AM CDT 04/18/2020 9:42 AM CDT Narrative [facility] - 04/18/2020 10:00 AM CDT Conventional Warfarin Anticoagulant Therapy: INR Reference Range: ??2.0-3.0 Intensive Warfarin Anticoagulant Therapy: INR Reference Range: ? 2.5-3.5 Heparin Therapeutic Range for PTT: ??71.0 - 109.0 seconds. Clem Brown MD LAB - COAGULATION OR DERABLES Performing Organization Address City/[facility]/ZIP Co de Phone Number [facility] [address] [place] [address] * (ABNORMAL) [id number] ANTIBODY (04/18/2020 9:29 AM CDT) Pathologist [facility] [id number] Antibody 15(H) <12 Units/mL 04/22/2020 5:07 PM CDT [facility] ([facility]) Comment: Results for this test are for research purposes only by the assay's firewall security engineer. ??The performance characteristics of this product have not been established. ??Results should not be used as a diagnostic procedure without confirmation of the diagnosis by another medically established diagnostic product or procedure. Blood BLOOD SPECIMEN / Unknown Venipuncture / Unknown 04/18/2020 9:29 AM CDT 04/18/2020 9:42 AM CDT [facility] ([facility]) - 04/22/2020 5:07 PM CDT Performed at: ??01 - [address] ??[id number] Supervisor Personnel Clerks: Kiran Guerra MD, Phone: ??[phone] Heraclio Dave MD LAB - COAGULATION OR DERABLES Performing Organization Address City/[facility] Co de Phone Number [facility] ([facility]) [address] [place] [address] * (ABNORMAL) [id number] ACTIVITY (04/18/2020 9:29 AM CDT) [id number] Activity 41.7(L) >66.8 % 04/20/2020 7:06 PM CDT [facility] ([facility]) Blood BLOOD SPECIMEN / Unknown Venipuncture / Unknown 04/18/2020 9:29 AM CDT 04/18/2020 9:42 AM CDT [facility]) - 04/20/2020 7:06 PM CDT Test(s) [id number] Activity was developed and its performance characteristics determined by [facility]. It has not been cleared or approved by the Food and Drug Administration. Performed at: ??01 - [address] ??[id number] Supervisor Personnel Clerks: Kiran Guerra MD, Phone: ??[phone] Heraclio Dave MD LAB - COAGULATION OR DERABLES Performing Organization Address City/[facility] Co de Phone Number [facility] ([facility]) [address] [place] [address] * LISET DIRECT (04/18/2020 9:29 AM CDT) Direct Liset (LANDY) NEG 04/18/2020 10:25 AM CDT [facility] BLOOD BANK LAB Blood Bank BLOOD SPECIMEN / Unknown Venipuncture / Unknown 04/18/2020 9:29 AM CDT 04/18/2020 9:43 AM CDT Heraclio Dave MD LAB - BLOOD BANK ORD ERABLES Performing Organization Address [facility] Co de Phone Number [facility] BLOOD BANK LAB [address] [place] [address] * FIBRINOGEN ACTIVITY (04/18/2020 9:29 AM CDT) Pathologist [facility] Fibrinogen 217 200 - 400 mg/dL 04/18/2020 9:59 AM CDT [facility] Blood BLOOD SPECIMEN / Unknown Venipuncture / Unknown 04/18/2020 9:29 AM CDT 04/18/2020 9:42 AM CDT Annabella Johnson MD LAB - COAGULATION OR DERABLES Performing Organization Address [facility] Co de Phone Number [facility] [address] [place] [address] * (ABNORMAL) GLUCOSE - POINT OF CARE (04/18/2020 9:26 AM CDT) [facility] Glucose WB/POC 174(H) 70 - 106 mg/dL 04/18/2020 2:43 PM CDT [facility] Specimen Type Arterial/C apillary 04/18/2020 2:43 PM CDT [facility] Blood BLOOD SPECIMEN / Unknown 04/18/2020 9:26 AM CDT 04/18/2020 2:43 PM CDT Phuong Frazier MD LAB - POINT OF CARE ORDERABLES Performing Organization Address [facility] Co de Phone Number [facility] [address] [place] [address] * PATHOLOGY PERIPHERAL SMEAR REVIEW (04/18/2020 8:31 AM CDT) Pathologist [facility] Case Report Pathology Interpretation Report ? Case: [id number] ? Authorizing Provider: ??Heraclio Dave MD ? Collected: ? 04/18/2020 08:31 AM ? Ordering Location: ? [facility] 4 ICU MEDICAL ? Received: ?04/18/2020 08:31 AM ? Pathologist: ? Obed, Kathleen Garcia, ? MD ? Specimen: ?Blood ? 04/18/2020 2:22 PM CDT [facility] Final Diagnosis Final diagnosis: - Leukocytosis with left-shift - Normocytic, normochromic anemia - Severe thrombocytopenia A comparison with a previous slide was requested ([id number]). Review of the morphologic and differential count [...] correlation is advised. 04/18/2020 2:22 PM CDT [facility] Blood BLOOD SPECIMEN / Unknown 04/18/2020 8:31 AM CDT 04/18/2020 8:31 AM CDT Heraclio Dave MD LAB - PATHOLOGY/CYTO LOGY ORDERABLES [facility] [address] [place], [place] [id number] * XR CHEST 1VW PORTABLE (04/18/2020 8:15 [...] - 14.8 sec 04/18/2020 8:29 AM CDT [facility] INR 1.1 0.9 - 1.1 04/18/2020 8:29 AM CDT [facility] PTT 27.5 23.0 - 38.4 sec 04/18/2020 8:29 AM CDT [facility] Fibrinogen 278 200 - 400 mg/dL 04/18/2020 8:29 AM CDT [facility] D-Dimer 3.18(H) 0.27 - 0.50 ug/mL FEU 04/18/2020 8:29 AM CDT [facility] Platelet Count 51(L) 153 - 416 x10E9/L 04/18/2020 8:29 AM CDT [facility] Blood BLOOD SPECIMEN / Unknown Venipuncture / Unknown 04/18/2020 7:53 AM CDT 04/18/2020 8:09 AM CDT [facility] LABORATORY - 04/18/2020 8:29 AM [...] Brown MD LAB - COAGULATION OR DERABLES [facility] [address] [place] [address] * (ABNORMAL) CBC W AUTO DIFFERENTIAL (04/18/2020 7:50 AM CDT) WBC 17.6(H) 4.4 - 10.7 x10E9/L 04/18/2020 8:20 AM CDT [facility] WBC Corrected [facility]/2020 [facility] RBC 2.96(L) 3.80 - 5.20 x10E12/L 04/18/2020 8:20 AM [facility] Hemoglobin 8.2(L) 12.0 - 15.6 gm/dL 04/18/2020 8:20 AM [facility] Hematocrit 25.1(L) 35.9 - 45.5 % 04/18/2020 8:20 AM [facility] MCV 84.8 80.7 - 98.3 fl 04/18/2020 8:20 AM [facility] MCH 27.7 26.7 - 34.0 pg 04/18/2020 8:20 [facility] MCHC 32.7 30.8 - 35.9 gm/dL 04/18/2020 8:20 AM [facility] Platelet Count 53(L) 153 - 416 x10E9/L 04/18/2020 8:20 AM [facility] RDW-CV 15.7(H) 12.1 - 14.9 % 04/18/2020 8:20 AM [facility] Neutrophils % 91.9(H) 44.0 - 73.0 % 04/18/2020 8:20 AM [facility] Lymphocytes % 4.4(L) 20.0 - 43.0 % 04/18/2020 8:20 AM [facility] Monocytes % 2.0(L) 5.0 - 13.0 % 04/18/2020 8:20 AM [facility] Eosinophils % 0.1 0.0 - 6.0 % 04/18/2020 8:20 AM [facility] Basophils % 0.2 0.0 - 2.0 % 04/18/2020 8:20 AM [facility] Immature Granulocytes 1.4(H) 0 - 1 % 04/18/2020 8:20 AM [facility] Neutrophil Absolute 16.17(H) 2.01 - 7.14 x10E9/L 04/18/2020 8:20 AM [facility] Lymphocytes Absolute 0.77(L) 1.07 - 3.94 x10E9/L 04/18/2020 8:20 AM [facility] Monocytes Absolute 0.35 0.26 - 1.07 x10E9/L 04/18/2020 8:20 AM CDT [facility] Eosinophils Absolute 0.01 0 - 0.47 x10E9/L 04/18/2020 8:20 AM CDT [facility] Basophils Absolute 0.04 0 - 0.08 x10E9/L 04/18/2020 8:20 AM CDT [facility] Immature Granulocytes Absolute 0.24(H) 0.00 - 0.06 x10E9/L 04/18/2020 8:20 AM CDT [facility] nRBC Auto 0 /100 WBC 04/18/2020 8:20 AM CDT [facility] Blood BLOOD SPECIMEN / Unknown Venipuncture / Unknown 04/18/2020 7:50 AM CDT 04/18/2020 8:09 AM CDT Clem Brown MD LAB - HEMATOLOGY ORD ERABLES [facility] [address] [place] [address] * (ABNORMAL) BLOOD GASES ARTERIAL (04/18/2020 7:43 AM CDT) pH Arterial 7.31(L) 7.35 - 7.45 pH 04/18/2020 9:03 AM CDT [facility]ER[facility] Comment:L pCO2 Arterial 36 35 - 45 mm hg 04/18/2020 9:03 AM CDT [facility] RESP [facility]ERAP[facility] pO2 Arterial 147(H) 80 - 100 mm hg 04/18/2020 9:03 AM CDT [facility] Comment:H HCO3 Arterial 18(L) 22 [...] - 2.5 % 04/18/2020 9:03 AM CDT [facility] RESP [facility]ERAP[facility] Methemoglobin Arterial 0.7 0.0 - 2.0 % 04/18/2020 9:03 AM CDT [facility] RES[facility]ER[facility] Oxyhemoglobin Arterial 97 % 04/18/2020 9:03 AM CDT [facility] RESP [facility]ERAPY Mode CMV 04/18/2020 9:03 AM CDT [facility] RESP THERAPY Aamir's Test N/A 04/18/2020 9:03 AM CDT [facility] RESP [facility]ERAP[facility] FI O2 40 % 04/18/2020 9:03 AM CDT [facility] RESP THERAPY Tidal Volume 450 mL 04/18/2020 9:03 AM CDT [facility] RESP THERAPY PEEP (cmH2O) 8.0 04/18/2020 9:03 AM CDT [facility] RESP [facility]ERAPY Respiratory Rate 20.0 04/18/20 20 9:03 AM CDT [facility] RESP THERAPY Sample Site Art Line 04/18/2020 9:03 AM CDT [facility] RESP THERAPY Sample Type Arterial 04/18/2020 9:03 AM CDT [facility] RESP THERAPY Press Writer ID [id number] 04/18/2020 9:03 AM CDT [facility] RESP THERAPY Blood, arterial ARTERIAL BLOOD SPECIMEN / Unknown 04/18/2020 7:43 AM CDT 04/18/2020 7:43 AM CDT Angela Mallory MD LAB - BLOOD GASES OR DERABLES Performing Organization Address [facility]/State/ZIP Co de Phone Number [facility] RESP THERAPY [address] [place] [address] * (ABNORMAL) BLOOD GASES ARTERIAL (04/18/2020 6:07 AM CDT) pH Arterial 7.08(LL) 7.35 - 7.45 pH 04/18/2020 6:16 AM CDT [facility] RESP THERAPY Comment:LL pCO2 Arterial 56(H) 35 - 45 mm hg 04/18/2020 6:16 AM CDT [facility] RESP THERAPY Comment:H pO2 Arterial 281(H) 80 - 100 mm hg 04/18/2020 6:16 AM CDT [facility] RESP THERAPY Comment:H HCO3 Arterial 16(L) 22 - 26 mmol/L 04/18/2020 6:16 AM CDT [facility] RESP THERAPY Comment:L BE Arterial -13.4(L) -2.0 - 2.0 mmol/L 04/18/2020 6:16 AM CDT [facility] RESP THERAPY Comment:L O2 Saturation Arterial [...] Arterial 98 % 04/18/2020 6:16 AM CDT [facility] RESP THERAPY O2 Content Arterial 15.3 % 04/18 6:16 AM CDT [facility] RESP THERAPY Comment:L Aamir's Test N/A 04/18/2020 6:16 AM CDT [facility] RESP THERAPY FI O2 100 % 04/18/2020 6:16 AM CDT [facility] RESP THERAPY Tidal Volume 350 mL 04/18/2020 6:16 AM CDT [facility] RESP THERAPY PEEP (cmH2O) 5.0 04/18/2020 6:16 AM CDT [facility] RESP THERAPY Respiratory Rate 16.0 04/18/20 20 6:16 AM CDT [facility] RESP THERAPY Sample Site Art Line 04/18/2020 6:16 AM CDT [facility] RESP THERAPY Sample Type Arterial 04/18/2020 6:16 AM CDT [facility] RESP THERAPY Press Writer ID [id number] 04/18/2020 6:16 AM CDT [facility] RESP THERAPY Notified Renea Mallory 04/18/2020 6:16 AM CDT [facility] RESP THERAPY Notification Time 04/18/2020 06:16 04/18/2020 6:16 AM CDT [facility] RESP THERAPY Notified By Kusum LARA 04/18/2020 6:16 AM CDT [facility] RESP THERAPY Blood, arterial ARTERIAL BLOOD SPECIMEN / Unknown 04/18/2020 6:07 AM CDT 04/18/2020 6:07 AM CDT Maikel Ring MD LAB - BLOOD GASES ORDERABLES [facility] RESP THERAPY [address] [place] [address] * (ABNORMAL) TRIGLYCERIDES BLOOD (04/18/2020 5:37 AM CDT) Pathologist [facility] Triglycerides 160(H) <150 mg/dL 04/18/2020 8:16 AM CDT [facility] Blood BLOOD SPECIMEN / Unknown Venipuncture / Unknown 04/18/2020 5:37 AM CDT 04/18/2020 5:45 AM CDT Snehal Crowe MD LAB - CHEM ISTRY ORDERABLES Performing Organization Address [facility] Co de Phone Number [facility] [address] [place] [address] * (ABNORMAL) SLIDE SCAN HEMATOLOGY (04/18/2020 5:37 AM CDT) Pathologist [facility] Platelet Estimation Decrease d(A) Normal, Adequate platelets 04/18/2020 7:07 AM CDT [facility] Anisocytosis 1+(A) None 04/18/2020 7:07 AM CDT [facility] Poikilocytosis 1+(A) None 04/18/2020 7:07 AM CDT [facility] Polychromasia Occasion al(A) None 04/18/2020 7:07 AM CDT [facility] Alicia Cells 1+(A) None 04/18/2020 7:07 AM CDT [facility] Blood BLOOD SPECIMEN / Unknown Venipuncture / Unknown 04/18/2020 5:37 AM CDT 04/18/2020 5:45 AM CDT Maikel Ring MD LAB - HEMATOLOGY ORDERABLES Performing Organization Address [facility] Co de Phone Number [facility] [address] [place] [address] * (ABNORMAL) MAGNESIUM BLOOD (04/18/2020 5:37 AM CDT) Pathologist [facility] Magnesium 1.3(L) 1.6 - 2.6 mg/dL 04/18/2020 6:26 AM CDT [facility] Blood BLOOD SPECIMEN / Unknown Venipuncture / Unknown 04/18/2020 5:37 AM CDT 04/18/2020 5:45 AM CDT Maikel Ring MD LAB - CHEMISTRY O RDERABLES [facility] [address] [place] [address] * (ABNORMAL) COAGULATION PANEL W D-DIMER (04/18/2020 5:37 AM CDT) [facility] PT 14.5 12.1 - 14.8 sec 04/18/2020 6:58 AM CDT [facility] INR 1.2(H) 0.9 - 1.1 04/18/2020 6:58 AM CDT [facility] PTT 33.8 23.0 - 38.4 sec 04/18/2020 6:58 AM CDT [facility] Fibrinogen 239 200 - 400 mg/dL 04/18/2020 6:58 AM CDT [facility] D-Dimer 3.75(H) 0.27 - 0.50 ug/mL FEU 04/18/2020 6:58 AM T [facility] Platelet Count 38(LL) 153 - 416 x10E9/L 04/18/2020 6:58 AM CDT [facility] Blood BLOOD SPECIMEN / Unknown Venipuncture / Unknown 04/18/2020 5:37 AM CDT 04/18/2020 5:45 AM CDT Narrative [facility] - 04/18/2020 6:58 AM CDT [...] Maikel Ring MD LAB - COAGULATION ORDERABLES [facility] [address] [place] [address] * (ABNORMAL) COMPREHENSIVE METABOLIC PANEL (04/18/2020 5:37 AM CDT) Glucose 306(H) 70 - 105 mg/dL 04/18/2020 6:30 AM CDT [facility] Sodium 138 136 - 145 mmol/L 04/18/2020 6:30 AM CDT [facility] Potassium 4.8 3.5 - 5.1 mmol/L 04/18/2020 6:30 AM CDT [facility] Chloride 110(H) 98 - 107 mmol/L 04/18/2020 6:30 AM CDT [facility] CO2 13(L) 23 - 31 mmol/L 04/18/2020 6:30 AM CDT [facility] Calcium 6.8(LL) 8.4 - 10.4 mg/dL 04/18/2020 6:30 AM T [facility] Anion Gap 15 8 - 16 mmol/L 04/18/2020 6:30 AM T [facility] BUN 20(H) 7 - 18.7 mg/dL 04/18/2020 6:30 AM T [facility] Creatinine 1.02 0.57 - 1.11 mg/dL 04/18/2020 6:30 AM [facility] Alkaline Phosphatase 192(H) 40 - 150 U/L 04/18/2020 6:30 AM T [facility] ALT 22 0 - 61 U/L 04/18/2020 6:30 AM [facility] AST 34 5 - 34 U/L 04/18/2020 6:30 AM [facility] Protein Total 4.7(L) 6.4 - 8.3 gm/dL 04/18/2020 6:30 AM [facility] Albumin 2.6(L) 3.5 - 5.2 gm/dL 04/18/2020 6:30 AM T [facility] Bilirubin Total 0.5 0.2 - 1.0 mg/dL 04/18/2020 6:30 AM T [facility] eGFR by MDRD >60 >60 mL/min/1.7 3m2 04/18/2020 6:30 AM T [facility] eGFR by MDRD >60 >60 mL/min/1.7 3m2 04/18/2020 6:30 AM T [facility] Blood BLOOD SPECIMEN / Unknown Venipuncture / Unknown 04/18/2020 5:37 AM CDT 04/18/2020 5:45 AM CDT Maikel Ring MD LAB - CHEMISTRY O RDERABLES [facility] [address] [place] [address] * (ABNORMAL) LACTIC ACID BLOOD (04/18/2020 5:37 AM CDT) Lactic Acid 6.9(HH) 0.5 - 2.2 mmol/L 04/18/2020 6:23 AM CDT [facility] Blood BLOOD SPECIMEN / Unknown Venipuncture / Unknown 04/18/2020 5:37 AM CDT 04/18/2020 5:44 AM CDT Maikel Ring MD LAB - CHEMISTRY O RDERASTEPHANE Performing Organization Address City/State/[facility] Co de Phone Number [facility] [address] [place] [address] * (ABNORMAL) CBC W AUTO DIFFERENTIAL (04/18/2020 5:37 AM CDT) WBC 23.1(H) 4.4 - 10.7 x10E9/L 04/18/2020 6:33 AM CDT [facility] WBC Corrected 04/18/2020 6:33 AM CDT [facility] RBC 3.23(L) 3.80 - 5.20 x10E12/L 04/18/2020 6:33 AM CDT [facility] Hemoglobin 8.9(L) 12.0 - 15.6 gm/dL 04/18/2020 6:33 AM CDT [facility] Hematocrit 28.6(L) 35.9 - 45.5 % 04/18/2020 6:33 AM CDT [facility] MCV 88.5 80.7 - 98.3 fl 04/18/2020 6:33 AM CDT [facility] MCH 27.6 26.7 - 34.0 pg 04/18/2020 6:33 AM CDT [facility] MCHC 31.1 30.8 - 35.9 gm/dL 04/18/2020 6:33 AM CDT [facility] Platelet Count 39(LL) 153 - 416 x10E9/L 04/18/2020 6:33 AM CDT [facility] RDW-CV 16.3(H) 12.1 - 14.9 % 04/18/2020 6:33 AM CDT [facility] Neutrophils % 87.8(H) 44.0 - 73.0 % 04/18/2020 6:33 AM CDT [facility] Lymphocytes % 5.2(L) 20.0 - 43.0 % 04/18/2020 6:33 AM CDT [facility] Monocytes % 2.0(L) 5.0 - 13.0 % 04/18/2020 6:33 AM CDT [facility] Eosinophils % 0.2 0.0 - 6.0 % 04/18/2020 6:33 AM CDT [facility] Basophils % 0.4 0.0 - 2.0 % 04/18/2020 6:33 AM CDT [facility] Immature Granulocytes 4.4(H) 0 - 1 % 04/18/2020 6:33 AM CDT [facility] Neutrophil Absolute 20.24(H) 2.01 - 7.14 x10E9/L 04/18/2020 6:33 AM CDT [facility] Lymphocytes Absolute 1.21 1.07 - 3.94 x10E9/L 04/18/2020 6:33 AM CDT [facility] Monocytes Absolute 0.46 0.26 - 1.07 x10E9/L 04/18/2020 6:33 AM T [facility] Eosinophils Absolute 0.04 0 - 0.47 x10E9/L 04/18/2020 6:33 AM CDT [facility] Basophils Absolute 0.09(H) 0 - 0.08 x10E9/L 04/18/2020 6:33 AM CDT [facility] Immature Granulocytes Absolute 1.01(H) 0.00 - 0.06 x10E9/L 04/18/2020 6:33 AM CDT [facility] nRBC Auto 0 /100 WBC 04/18/2020 6:33 AM T [facility] Blood BLOOD SPECIMEN / Unknown Venipuncture / Unknown 04/18/2020 5:37 AM CDT 04/18/2020 5:45 AM CDT Maikel Ring MD LAB - HEMATOLOGY ORDERABLES [facility] [address] [place] [address] * PTT (04/18/2020 5:37 AM CDT) PTT 33.0 23.0 - 38.4 sec 04/18/2020 6:53 AM [facility] Blood BLOOD SPECIMEN / Unknown Venipuncture / Unknown 04/18/2020 5:37 AM CDT 04/18/2020 5:45 AM CDT Narrative [facility] - 04/18/2020 6:53 AM CDT Heparin Therapeutic Range for PTT: ??71.0 - 109.0 seconds. Annabella Johnson MD LAB - COAGULATION OR DERABLES Performing Organization Address [facility] de Phone Number [facility] [address] [place], [place] [id number] * (ABNORMAL) PT-INR (04/18/2020 5:37 AM CDT) PT 14.4 12.1 - 14.8 sec 04/18/2020 6:52 AM CDT [facility] INR 1.2(H) 0.9 - 1.1 04/18/2020 6:52 AM CDT [facility] Blood BLOOD SPECIMEN / Unknown Venipuncture / Unknown 04/18/2020 5:37 AM CDT 04/18/2020 5:45 AM CDT Narrative [facility] - 04/18/2020 6:52 AM CDT Conventional Warfarin Anticoagulant Therapy: INR Reference Range: ??2.0-3.0 Intensive Warfarin Anticoagulant Therapy: INR Reference Range: ? 2.5-3.5 Annabella Johnson MD LAB - COAGULATION OR DERABLES Performing Organization Address [facility] de Phone Number [facility] [address] [place] [address] * FIBRINOGEN ACTIVITY (04/18/2020 5:37 AM CDT) Fibrinogen 250 200 - 400 mg/dL 04/18/2020 6:55 AM CDT [facility] Blood BLOOD SPECIMEN / Unknown Venipuncture / Unknown 04/18/2020 5:37 AM CDT 04/18/2020 5:45 AM CDT Annabella Johnson MD LAB - COAGULATION OR DERABLES Performing Organization Address [facility] Co de Phone Number [facility] [address] [place] [id number] * PATHOLOGY TISSUE EXAM (STL) (04/18/2020 4:24 AM CDT) Case Report Surgical Pathology Report ? Case: [id number] ? Authorizing Provider: ??Marisa James MD ? Collected: ? 04/18/2020 04:24 AM ? Ordering Location: ? [facility] 5 LDR ? Received: ?04/18/2020 07:17 AM ? Pathologist: ? Phuong Hernadez MD ? Specimens: ?? A) - Placenta 3rd Trimester ? B) - Placenta 3rd Trimester ? 04/23/2020 7:57 AM CDT [facility] Final Diagnosis Twin placenta, delivery (A) [...] with recent perivascular hemorrhage 04/23/2020 7:57 AM [facility] Clinical History The patient is a 29-year-old woman at 38 weeks, 1 day gestation with twins, with clinically suspected placental abruption. 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 Operative procedure/findings: section, Apgars 6/7/8 and 5/8. 04/23/2020 7:57 AM [facility] Gross Description The requisition and specimens [...] of the maternal surface, or gross infarcts. [employer] sections are submitted as follows: A1 - [...] of the maternal surface, or gross infarcts. [employer] sections are submitted as follows: B1 - attached umbilical cord and membranes B2-B3 - placenta B4 - detached segment of umbilical cord DS/ns 04/23/2020 7:57 AM [facility] Microscopic Description Microscopic examination substantiates the [...] helpful if clinically indicated. 04/23/2020 7:57 AM [facility] Disclaimer All histochemical and/or immunohistochemical results are interpreted with controls that demonstrate appropriate staining reactions before reporting results. Note on use of immunocytochemistry reagents: This test was developed and its performance characteristic determined by [facility], Department of Laboratory Medicine. It [...] interpreted with caution. 04/23/2020 7:57 AM CDT [facility] Embedded Images 04/23/2020 7:57 AM T [facility] Pathology/Cytology ENTIRE PLACENTA / Unknown 04/18/2020 4:24 AM CDT 04/18/2020 7:17 AM CDT Comment:Pre-op diagnosis: Twin delivery by [[email or web address]] Miscellaneous samples (specimen) ENTIRE PLACENTA / Unknown 04/18/2020 4:25 AM CDT 04/18/2020 7:17 AM CDT Comment:Pre-op diagnosis: Twin delivery by [[email or web address]] Marisa James MD LAB - PATHOLOGY/CYTO LOGY ORDERABLES [facility] [address] [place] [address] * HEMOGLOBIN A1C (04/18/2020 4:13 AM CDT) Hemoglobin A1c 5.2 4.2 - 5.6 % 04/18/2020 6:37 AM CDT [facility] Estimated Average Glucose 103 mg/dL 04/18/2020 6:37 AM CDT [facility] Blood BLOOD SPECIMEN / Unknown Venipuncture / Unknown 04/18/2020 4:13 AM CDT 04/18/2020 4:16 AM CDT Narrative [facility] - 04/18/2020 6:37 AM CDT The following cutoff levels are recommended by [employer]. ?? A1c ??> 6.5% : [...] Ring MD LAB - CHEMISTRY O RDERASTEPHANE [facility] [address] [place], [place] [id number] * (ABNORMAL) COMPREHENSIVE METABOLIC PANEL (04/18/2020 4:13 AM CDT) Pathologist [facility] Glucose 202(H) 70 - 105 mg/dL 04/18/2020 4:45 AM CDT [facility] Sodium 139 136 - 145 mmol/L 04/18/2020 4:45 AM CDT [facility] Potassium 4.0 3.5 - 5.1 mmol/L 04/18/2020 4:45 AM CDT [facility] Chloride 113(H) 98 - 107 mmol/L 04/18/2020 4:45 AM CDT [facility] CO2 15(L) 23 - 31 mmol/L 04/18/2020 4:45 AM CDT [facility] Calcium 7.1(L) 8.4 - 10.4 mg/dL 04/18/2020 4:45 AM CDT [facility] Anion Gap 11 8 - 16 mmol/L 04/18/2020 4:45 AM CDT [facility] BUN 19(H) 7 - 18.7 mg/dL 04/18/2020 4:45 AM CDT [facility] Creatinine 0.99 0.57 - 1.11 mg/dL 04/18/2020 4:45 AM CDT [facility] Alkaline Phosphatase 208(H) 40 - 150 U/L 04/18/2020 4:45 AM CDT [facility] ALT 23 0 - 61 U/L 04/18/2020 4:45 AM CDT [facility] AST 29 5 - 34 U/L 04/18/2020 4:45 AM CDT [facility] Protein Total 4.4(L) 6.4 - 8.3 gm/dL 04/18/2020 4:45 AM CDT [facility] Albumin 2.3(L) 3.5 - 5.2 gm/dL 04/18/2020 4:45 AM CDT [facility] Bilirubin Total 0.4 0.2 - 1.0 mg/dL 04/18/2020 4:45 AM CDT [facility] eGFR by MDRD >60 >60 mL/min/1.7 3m2 04/18/2020 4:45 AM CDT [facility] eGFR by MDRD >60 >60 mL/min/1.7 3m2 04/18/2020 4:45 AM CDT [facility] Blood BLOOD SPECIMEN / Unknown Venipuncture / Unknown 04/18/2020 4:13 AM CDT 04/18/2020 4:16 AM CDT Mayuri Norton MD LAB - CHEMISTRY MIRI GO Performing Organization Address City/[facility] Co de Phone Number [facility] [address] [place], [place] [phone] * PTT (04/18/2020 4:13 AM CDT) PTT 38.1 23.0 - 38.4 sec 04/18/2020 4:34 AM CDT [facility] Blood BLOOD SPECIMEN / Unknown Venipuncture / Unknown 04/18/2020 4:13 AM CDT 04/18/2020 4:16 AM CDT Narrative [facility] - 04/18/2020 4:34 AM CDT Heparin Therapeutic Range for PTT: ??71.0 - 109.0 seconds. Annabella Johnson MD LAB - COAGULATION OR DERABLES Performing Organization Address City/[facility] Co de Phone Number [facility] [address] [place], [place] [phone] * (ABNORMAL) PT-INR (04/18/2020 4:13 AM CDT) PT 15.6(H) 12.1 - 14.8 sec 04/18/2020 4:33 AM CDT [facility] INR 1.3(H) 0.9 - 1.1 04/18/2020 4:33 AM CDT [facility] Blood BLOOD SPECIMEN / Unknown Venipuncture / Unknown 04/18/2020 4:13 AM CDT 04/18/2020 4:16 AM CDT Narrative [facility] - 04/18/2020 4:33 AM CDT Conventional Warfarin Anticoagulant Therapy: INR Reference Range: ??2.0-3.0 Intensive Warfarin Anticoagulant Therapy: INR Reference Range: ? 2.5-3.5 Annabella Johnson MD LAB - COAGULATION OR DERABLES Performing Organization Address City/[facility] Co de Phone Number [facility] [address] [place], [place] [phone] * FIBRINOGEN ACTIVITY (04/18/2020 4:13 AM CDT) Pathologist [facility] Fibrinogen 238 200 - 400 mg/dL 04/18/2020 4:34 AM CDT [facility] Blood BLOOD SPECIMEN / Unknown Venipuncture / Unknown 04/18/2020 4:13 AM CDT 04/18/2020 4:16 AM CDT Annabella Johnson MD LAB - COAGULATION OR DERABLES Performing Organization Address [facility] de Phone Number [facility] [address] [place] [address] * (ABNORMAL) CBC W AUTO DIFFERENTIAL (04/18/2020 4:13 AM CDT) Pathologist [facility] WBC 19.5(H) 4.4 - 10.7 x10E9/L 04/18/2020 4:30 AM CDT [facility] WBC Corrected 04/18/2020 4:30 AM CDT [facility] RBC 2.04(L) 3.80 - 5.20 x10E12/L 04/18/2020 4:30 AM CDT [facility] Hemoglobin 5.4(LL) 12.0 - 15.6 gm/dL 04/18/2020 4:30 AM CDT [facility] Hematocrit 17.6(LL) 35.9 - 45.5 % 04/18/2020 4:30 AM CDT [facility] MCV 86.3 80.7 - 98.3 fl 04/18/2020 4:30 AM CDT [facility] MCH 26.5(L) 26.7 - 34.0 pg 04/18/2020 4:30 AM CDT [facility] MCHC 30.7(L) 30.8 - 35.9 gm/dL 04/18/2020 4:30 AM [facility] Platelet Count 42(LL) 153 - 416 x10E9/L 04/18/2020 4:30 AM [facility] RDW-CV 19.7(H) 12.1 - 14.9 % 04/18/2020 4:30 AM [facility] Neutrophils % 88.8(H) 44.0 - 73.0 % 04/18/2020 4:30 AM [facility] Lymphocytes % 6.4(L) 20.0 - 43.0 % 04/18/2020 4:30 AM [facility] Monocytes % 1.8(L) 5.0 - 13.0 % 04/18/2020 4:30 AM [facility] Eosinophils % 0.1 0.0 - 6.0 % 04/18/2020 4:30 AM [facility] Basophils % 0.3 0.0 - 2.0 % 04/18/2020 4:30 AM [facility] Immature Granulocytes 2.6(H) 0 - 1 % 04/18/2020 4:30 AM [facility] Neutrophil Absolute 17.28(H) 2.01 - 7.14 x10E9/L 04/18/2020 4:30 AM [facility] Lymphocytes Absolute 1.25 1.07 - 3.94 x10E9/L 04/18/2020 4:30 AM [facility] Monocytes Absolute 0.35 0.26 - 1.07 x10E9/L 04/18/2020 4:30 AM [facility] Eosinophils Absolute 0.01 0 - 0.47 x10E9/L 04/18/2020 4:30 AM [facility] Basophils Absolute 0.05 0 - 0.08 x10E9/L 04/18/2020 4:30 AM [facility] Immature Granulocytes Absolute 0.51(H) 0.00 - 0.06 x10E9/L 04/18/2020 4:30 AM [facility] nRBC Auto 0 /100 WBC 04/18/2020 4:30 AM [facility] Blood BLOOD SPECIMEN / Unknown Venipuncture / Unknown 04/18/2020 4:13 AM CDT 04/18/2020 4:16 AM CDT Annabella Johnson MD LAB - HEMATOLOGY ORD ERABLES Performing Organization Address City/[facility]/ZIP Co de Phone Number [facility] [address] [place] [phone] * (ABNORMAL) BLOOD GASES CORD JEREMY (04/18/2020 3:12 AM CDT) pH Cord Venous 6.98(LL) 7.28 - 7.40 pH 04/18/2020 3:26 AM CDT [facility] RESP THERAPY Comment:LL pCO2 Cord Venous 75(HH) 35 - 45 mm hg 04/18/2020 3:26 AM CDT [facility] RESP THERAPY Comment:HH pO2 Cord Venous 18(L) 22 - 33 mm hg 04/18/2020 3:26 AM CDT [facility] RESP THERAPY Comment:L HCO3 Cord Venous 17(L) 22 - 24 mmol/L 04/18/2020 3:26 AM CDT [facility] RESP THERAPY Comment:L BE Cord Venous -15.6 mmol/L 04/18/2020 3:26 AM CDT [facility] RESP THERAPY O2 Saturation Cord Venous 26 % 04/18/2020 3:26 AM CDT [facility] RESP THERAPY Aamir's Test N/A 04/18/2020 3:26 AM CDT [facility] RESP THERAPY Sample Site Other 04/18/2020 3:26 AM CDT [facility] RESP THERAPY Sample Type Cord Blood Venous 04/18/2020 3:26 AM CDT [facility] RESP THERAPY Press Writer ID [id number] 04/18/2020 3:26 AM CDT [facility] RESP THERAPY Notified Renea elder toolmaker 04/18/2020 3:26 AM CDT [facility] RESP THERAPY Notification Time 04/18/2020 03:26 04/18/2020 3:26 AM CDT [facility] RESP THERAPY Notified By octavia learn to swim instructor 04/18/2020 3:26 AM CDT [facility] RESP THERAPY Blood CORD BLOOD SPECIMEN / Unknown 04/18/2020 3:12 AM CDT 04/18/2020 3:12 AM CDT Afsaneh Sandoval MD LAB - BLOOD GASES OR DERABLES Performing Organization Address City/[facility]/ZIP Co de Phone Number [facility] RESP THERAPY [address] [phone] * (ABNORMAL) BLOOD GASES CORD ARTERIAL (04/18/2020 3:12 AM CDT) pH Cord Arterial 6.92(LL) 7.20 - 7.34 pH 04/18/2020 3:27 AM CDT [facility] RESP THERAPY Comment:LL pCO2 Cord Arterial 89(HH) 45 - 55 mm hg 04/18/2020 3:27 AM CDT [facility] RESP THERAPY Comment:HH pO2 Cord Arterial 04/18/2020 3:27 AM CDT [facility] RESP [facility]ERAPY Comment:< HCO3 Cord Arterial 18.0(L) 22.0 - 24.0 mmol/L 04/18/2020 3:27 AM CDT [facility] RESP THERAPY Comment:L BE Cord Arterial -16.3 mmol/L 04/18/20 20 3:27 AM CDT [facility] RESP THERAPY O2 Saturation Cord Arterial 04/18/2020 3:27 AM CDT [facility] RESP THERAPY Comment:< Aamir's Test N/A 04/18/2020 3:27 AM CDT [facility] RESP THERAPY Sample Site Other 04/18/2020 3:27 AM CDT [facility] RESP THERAPY Sample Type Cord blood Arterial 04/18/2020 3:27 AM CDT [facility] Press Writer ID [id number] 04/18/2020 3:27 AM CDT [facility] Notified Renea elder toolmaker 04/18/2020 3:27 AM CDT [facility] Notification Time 04/18/2020 03:27 04/18/2020 3:27 AM CDT [facility] Notified By octavia morrissey 04/18/2020 3:27 AM CDT [facility] Blood, arterial CORD BLOOD SPECIMEN / Unknown 04/18/2020 3:12 AM CDT 04/18/2020 3:12 AM CDT Afsaneh Sandoval MD LAB - BLOOD GASES OR DERABLES [facility] [address] [phone] * (ABNORMAL) BLOOD GASES CORD ARTERIAL (04/18/2020 [...] Sample Site Other 04/18/2020 3:24 AM CDT [facility] Sample Type Cord Blood Venous 04/18/2020 3:24 AM CDT [facility] RESP THERAPY Press Writer ID [id number] 04/18/2020 3:24 AM CDT [facility] RESP THERAPY Notified Who jerrod toolmaker 04/18/2020 3:24 AM CDT [facility] RESP THERAPY [...] MD LAB - BLOOD GASES OR DERABLES [facility] [address] [phone] * (ABNORMAL) BLOOD GASES CORD JEREMY (04/18/2020 [...] Venous 54 % 04/18/2020 3:23 AM CDT [facility] Aamir's Test N/A 04/18/2020 3:23 AM CDT [facility] Sample Site Other 04/18/2020 3:23 AM CDT [facility] Sample Type Cord Blood Venous 04/18/2020 3:23 AM CDT [facility] Press Writer ID [id number] 04/18/2020 3:23 AM CDT [facility] Notification Time 04/18/2020 03:23 04/18/2020 3:23 AM CDT [facility] Blood CORD BLOOD SPECIMEN / Unknown 04/18/2020 3:07 AM CDT 04/18/2020 3:07 AM CDT Narrative [facility] - 04/18/2020 3:23 AM CDT baby a Afsaneh Sandoval MD LAB - BLOOD GASES OR DERABLES Performing Organization Address City/State/[facility] Co de Phone Number [facility] [address] [phone] * PTT (04/18/2020 12:53 AM CDT) PTT 33.4 23.0 - 38.4 sec 04/18/2020 1:29 AM CDT [facility] Blood BLOOD SPECIMEN / Unknown Venipuncture / Unknown 04/18/2020 12:53 AM CDT 04/18/2020 1:14 AM CDT Narrative [facility] - 04/18/2020 1:29 AM CDT Heparin Therapeutic Range for PTT: ??71.0 - 109.0 seconds. Annabella Johnson MD LAB - COAGULATION OR DERABLES Performing Organization Address [facility] [facility] de Phone Number [facility] [address] [place], [place] [phone] * PT-INR (04/18/2020 12:53 AM CDT) Pathologist [facility] PT 13.1 12.1 - 14.8 sec 04/18/2020 1:28 AM CDT [facility] INR 1.0 0.9 - 1.1 04/18/2020 1:28 AM CDT [facility] Blood BLOOD SPECIMEN / Unknown Venipuncture / Unknown 04/18/2020 12:53 AM CDT 04/18/2020 1:14 AM CDT Narrative [facility] - 04/18/2020 1:28 AM CDT Conventional Warfarin Anticoagulant Therapy: INR Reference Range: ??2.0-3.0 Intensive Warfarin Anticoagulant Therapy: INR Reference Range: ? 2.5-3.5 Annabella Johnson MD LAB - COAGULATION OR DERABLES Performing Organization Address [facility] de Phone Number [facility] [address] [place] [address] * FIBRINOGEN ACTIVITY (04/18/2020 12:53 AM CDT) Pathologist [facility] Fibrinogen 345 200 - 400 mg/dL 04/18/2020 1:29 AM CDT [facility] Blood BLOOD SPECIMEN / Unknown Venipuncture / Unknown 04/18/2020 12:53 AM CDT 04/18/2020 1:14 AM CDT Annabella Johnson MD LAB - COAGULATION OR DERABLES Performing Organization Address [facility] de Phone Number [facility] [address] [place], [place] [phone] * (ABNORMAL) CBC W AUTO DIFFERENTIAL (04/18/2020 12:53 AM CDT) Pathologist [facility] WBC 16.6(H) 4.4 - 10.7 x10E9/L 04/18/2020 1:32 AM CDT [facility] WBC Corrected 04/18/2020 1:[facility] RBC 3.71(L) 3.80 - 5.20 x10E12/L 04/18/2020 1:32 AM [facility] Hemoglobin 10.0(L) 12.0 - 15.6 gm/dL 04/18/2020 1:32 AM [facility] Hematocrit 30.7(L) 35.9 - 45.5 % 04/18/2020 1:32 AM [facility] MCV 82.7 80.7 - 98.3 fl 04/18/2020 1:32 AM [facility] MCH 27.0 26.7 - 34.0 pg 04/18/2020 1:32 AM [facility] MCHC 32.6 30.8 - 35.9 gm/dL 04/18/2020 1:32 AM [facility] Platelet Count 29(LL) 153 - 416 x10E9/L 04/18/2020 1:32 AM [facility] RDW-CV 19.5(H) 12.1 - 14.9 % 04/18/2020 1:32 AM [facility] Neutrophils % 90.5(H) 44.0 - 73.0 % 04/18/2020 1:32 AM [facility] Lymphocytes % 4.0(L) 20.0 - 43.0 % 04/18/2020 1:32 AM [facility] Monocytes % 3.7(L) 5.0 - 13.0 % 04/18/2020 1:32 AM [facility] Eosinophils % 0.2 0.0 - 6.0 % 04/18/2020 1:32 AM [facility] Basophils % 0.3 0.0 - 2.0 % 04/18/2020 1:32 AM [facility] Immature Granulocytes 1.3(H) 0 - 1 % 04/18/2020 1:32 AM [facility] Neutrophil Absolute 14.97(H) 2.01 - 7.14 x10E9/L 04/18/2020 1:32 AM [facility] Lymphocytes Absolute 0.67(L) 1.07 - 3.94 x10E9/L 04/18/2020 1:32 AM [facility] Monocytes Absolute 0.61 0.26 - 1.07 x10E9/L 04/18/2020 1:32 AM CDT [facility] Eosinophils Absolute 0.04 0 - 0.47 x10E9/L 04/18/2020 1:32 AM CDT [facility] Basophils Absolute 0.05 0 - 0.08 x10E9/L 04/18/2020 1:32 AM CDT [facility] Immature Granulocytes Absolute 0.22(H) 0.00 - 0.06 x10E9/L 04/18/2020 1:32 AM CDT [facility] nRBC Auto 0 /100 WBC 04/18/2020 1:32 AM CDT [facility] Blood BLOOD SPECIMEN / Unknown Venipuncture / Unknown 04/18/2020 12:53 AM CDT 04/18/2020 1:14 AM CDT Annabella Johnson MD LAB - HEMATOLOGY ORD ERABLES Performing Organization Address [facility] Co de Phone Number [facility] [address] [place] [phone] * (ABNORMAL) URINE MICROSCOPIC ONLY (04/17/2020 8:57 PM CDT) RBC UA >100(A) None Seen, 0-2, 3-5 # /hpf 04/17/2020 9:47 PM CDT [facility] WBC UA 6-10(A) None Seen, 0-5 # /hpf 04/17/2020 9:47 PM CDT [facility] Bacteria UA None Seen None Seen 04/17/2020 9:47 PM CDT [facility] Squamous Epithelial Cells 6-10(A) None Seen, 0-2, 3-5 /hpf 04/17/2020 9:47 PM CDT [facility] Urine URINE SPECIMEN OBTAINED BY CLEAN CATCH PROCEDURE / Unknown Collection / Unknown 04/17/2020 8:57 PM CDT 04/17/2020 9:08 PM CDT Narrative [facility] - 04/17/2020 9:47 PM CDT Annabella Johnson MD LAB - URINALYSIS ORD ERABLES Performing Organization Address City/[facility]/ZIP Co de Phone Number [facility] [address] [place], [place] [phone] * PTT (04/17/2020 8:57 PM CDT) Pathologist [facility] PTT 33.2 23.0 - 38.4 sec 04/17/2020 9:28 PM CDT [facility] Blood BLOOD SPECIMEN / Unknown Venipuncture / Unknown 04/17/2020 8:57 PM CDT 04/17/2020 9:08 PM CDT Narrative [facility] - 04/17/2020 9:28 PM CDT Heparin Therapeutic Range for PTT: ??71.0 - 109.0 seconds. Mayuri Norton MD LAB - COAGULATION OR DERABLES [facility] [address] [place] [address] * PT-INR (04/17/2020 8:57 PM CDT) [facility] PT 13.2 12.1 - 14.8 sec 04/17/2020 9:27 PM CDT [facility] INR 1.1 0.9 - 1.1 04/17/2020 9:27 PM CDT [facility] Blood BLOOD SPECIMEN / Unknown Venipuncture / Unknown 04/17/2020 8:57 PM CDT 04/17/2020 9:08 PM CDT [facility] LAB[facility]AT[facility] - 04/17/2020 9:27 PM CDT Conventional Warfarin Anticoagulant Therapy: INR Reference Range: ??2.0-3.0 Intensive Warfarin Anticoagulant Therapy: INR Reference Range: ? 2.5-3.5 Mayuri Norton MD LAB - COAGULATION OR DERABLES [facility] [address] [place] [address] * (ABNORMAL) COMPREHENSIVE METABOLIC PANEL (04/17/2020 8:57 PM CDT) Pathologist [facility] Glucose 67(L) 70 - 105 mg/dL 04/17/2020 9:39 PM CDT [facility] Sodium 138 136 - 145 mmol/L 04/17/2020 9:39 PM CDT [facility] Potassium 4.3 3.5 - 5.1 mmol/L 04/17/2020 9:39 PM CDT [facility] Chloride 112(H) 98 - 107 mmol/L 04/17/2020 9:39 PM CDT [facility] CO2 16(L) 23 - 31 mmol/L 04/17/2020 9:39 PM CDT [facility] Calcium 7.8(L) 8.4 - 10.4 mg/dL 04/17/2020 9:39 PM CDT [facility] Anion Gap 10 8 - 16 mmol/L 04/17/2020 9:39 PM CDT [facility] BUN 21(H) 7 - 18.7 mg/dL 04/17/2020 9:39 PM CDT [facility] Creatinine 1.07 0.57 - 1.11 mg/dL 04/17/2020 9:39 PM CDT [facility] Alkaline Phosphatase 334(H) 40 - 150 U/L 04/17/2020 9:39 PM CDT [facility] ALT 30 0 - 61 U/L 04/17/2020 9:39 PM CDT [facility] AST 40(H) 5 - 34 U/L 04/17/2020 9:39 PM CDT [facility] Protein Total 5.3(L) 6.4 - 8.3 gm/dL 04/17/2020 9:39 PM CDT [facility] Albumin 2.7(L) 3.5 - 5.2 gm/dL 04/17/2020 9:39 PM CDT [facility] Bilirubin Total 0.3 0.2 - 1.0 mg/dL 04/17/2020 9:39 PM CDT [facility] eGFR by MDRD 60(L) >60 mL/min/1.7 3m2 04/17/2020 9:39 PM CDT [facility] eGFR by MDRD >60 >60 mL/min/1.7 3m2 04/17/2020 9:39 PM CDT [facility] Blood BLOOD SPECIMEN / Unknown Venipuncture / Unknown 04/17/2020 8:57 PM CDT 04/17/2020 9:09 PM CDT Mayuri Norton MD LAB - CHEMISTRY MIRI GO [facility] Organization Address City/State/ZIP Co de Phone Number [facility] [address] [place] [address] * (ABNORMAL) RUBELLA ANTIBODY IGG (04/17/2020 8:57 PM CDT) Rubella Antibody <0.90(L) Immune >0.99 index 04/19/2020 7:09 AM CDT [facility] ([facility]) Comment: ?Non-immune ? <0.90 ?Equivocal ??0.90 - 0.99 ?Immune ? >0.99 Blood BLOOD SPECIMEN / Unknown Venipuncture / Unknown 04/17/2020 8:57 PM CDT 04/17/2020 9:09 PM CDT Narrative [facility] ([facility]) - 04/19/2020 7:09 AM CDT Performed at: ??[address] - [address] ??[id number] Supervisor Personnel Clerks: Tyrone Rider PhD, Phone: ??[phone] Mayuri Norton MD LAB - SEROLOGY ORDER CRUZITO [facility] ([facility]) [address] [place] [address] * SYPHILIS ANTIBODY CASCADING REFLEX (04/17/2020 8:57 PM CDT) Treponema pallidum Antibody Non Reactive Non Reactive 04/17/2020 10:02 PM CDT [facility] Comment: No Laboratory evidence of syphilis infection. ?? Note: ??Circulating antibodies may be low or undetectable in early infection. ??If recent exposure is suspected, re-draw sample in 2-4 weeks and repeat testing. Blood BLOOD SPECIMEN / Unknown Venipuncture / Unknown 04/17/2020 8:57 PM CDT 04/17/2020 9:09 PM CDT Mayuri Norton MD LAB - SEROLOGY ORDER CRUZITO Performing Organization Address City/[facility]/ZIP Co de Phone Number [facility] [address] [place] [phone] * HIV-1 HIV-2 ANTIBODY + HIV P24 AG PANEL (04/17/2020 8:57 PM CDT) [facility] HIV1/2 Ab + P24 Ag Non Reactive Non Reactive 04/17/2020 10:02 PM CDT [facility] Blood BLOOD SPECIMEN / Unknown Venipuncture / Unknown 04/17/2020 8:57 PM CDT 04/17/2020 9:09 PM CDT Narrative [facility] - 04/17/2020 10:02 PM CDT No Laboratory evidence of HIV infection. Mayuri Norton MD LAB - CHEMISTRY ORDE RABLES Performing Organization Address [facility]/ZIP Co de Phone Number [facility] [address] [place] [phone] * FIBRINOGEN ACTIVITY (04/17/2020 8:57 PM CDT) [facility] Fibrinogen 325 200 - 400 mg/dL 04/17/2020 9:48 PM CDT [facility] Blood BLOOD SPECIMEN / Unknown Venipuncture / Unknown 04/17/2020 8:57 PM CDT 04/17/2020 9:08 PM CDT Mayuri Norton MD LAB - COAGULATION OR DERABLES Performing Organization Address [facility] Co de Phone Number [facility] [address] [place] [phone] * (ABNORMAL) CULTURE URINE (04/17/2020 8:57 PM CDT) [facility] Culture Urine 50,000-100,000 CFU/mL Escherichia coli(A) BERT 04/19/2020 10:33 AM CDT [facility] MICROBI[facility] Culture Urine 50,000-100,000 CFU/mL Streptococcus agalactiae (Group B)(A) 04/19/2020 10:33 AM T [facility] MICROBIOLOG[facility] Culture Urine 50,000-100,000 CFU/mL urogenital aneudy BERT 04/19/2020 10:33 AM T [facility]CRO[facility] Urine URINE SPECIMEN OBTAINED BY CLEAN CATCH PROCEDURE / Unknown Collection / Unknown 04/17/2020 8:57 PM CDT 04/17/2020 9:08 PM CDT Narrative [facility] MICROBIOLOG[facility] - 04/19/2020 10:33 AM CDT Susceptibility [...] Johnson MD LAB - MICROBIOLOGY O RDERABLES [facility]CROBIOLOG[facility] [address] [place] [address], [facility] [phone] * (ABNORMAL) URINALYSIS REFLEX TO MICROSCOPIC NO CULTURE (04/17/2020 8:57 PM CDT) Color UA Yellow Straw, Yellow 04/17/2020 9:18 PM CDT [facility] Clarity UA Slt Cloudy(A) Clear 04/17/2020 9:18 PM CDT [facility] Glucose UA Negative Negative 04/17/2020 9:18 PM CDT [facility] Bilirubin UA Negative Negative 04/17/2020 9:18 PM CDT [facility] Ketone UA Negative Negative 04/17/2020 9:18 PM CDT [facility] Specific Pierre Part UA 1.015 1.005 - 1.030 04/17/2020 9:18 PM CDT [facility] Blood UA 3+(A) Negative 04/17/2020 9:18 PM CDT [facility] pH UA 6.0 5.0 - 8.0 pH 04/17/2020 9:18 PM CDT [facility] Protein UA 1+(A) Negative 04/17/2020 9:18 PM CDT [facility] Urobilinogen UA Negative Negative mg/dL 04/17/2020 9:18 PM CDT [facility] Nitrite UA Negative Negative 04/17/2020 9:18 PM CDT [facility] Leukocyte UA Negative Negative 04/17/2020 9:18 PM CDT [facility] Urine Microscopy Urine microscopy to follow 04/17/2020 9:18 PM CDT [facility] Urine URINE SPECIMEN OBTAINED BY CLEAN CATCH PROCEDURE / Unknown Collection / Unknown 04/17/2020 8:57 PM CDT 04/17/2020 9:08 PM CDT Narrative [facility] - 04/17/2020 9:18 PM CDT Annabella Johnson MD LAB - URINALYSIS ORD ERABLES [facility] [address] [place] [address] * (ABNORMAL) DRUG SCREEN TOX URINE PANEL (04/17/2020 8:57 PM CDT) Amphetamines Screen Urine Detected(A) Not detected 04/17/2020 9:38 PM CDT [facility] Barbiturates Screen Urine Not detected Not detected 04/17/2020 9:38 PM CDT [facility] Benzodiazepines Screen Urine Not detected Not detected 04/17/2020 9:38 PM CDT [facility] Cannabinoids Screen Urine Not detected Not detected 04/17/2020 9:38 PM CDT [facility] Cocaine Screen Urine Not detected Not detected 04/17/2020 9:38 PM CDT [facility] Fentanyl Urine Not detected Not detected 04/17/2020 9:38 PM CDT [facility] Methadone Screen Urine Not detected Not detected 04/17/2020 9:38 PM CDT [facility] Opiate Screen Urine Not detected Not detected 04/17/2020 9:38 PM CDT [facility] Phencyclidine Screen Urine Not detected Not detected 04/17/2020 9:38 PM CDT [facility] Urine URINE / Unknown Collection / Unknown 04/17/2020 8:57 PM CDT 04/17/2020 9:08 PM CDT Narrative [facility] - 04/17/2020 9:38 PM [...] MD LAB - URINE CHEMISTR Y ORDERABLES [facility] [address] [place] [address] * BLOOD TYPE VERIFICATION (04/17/2020 8:24 PM CDT) ABO Rh A POS 04/17/2020 8:4 7 PM CDT [facility] LAB Blood Bank BLOOD SPECIMEN / Unknown Venipuncture / Unknown 04/17/2020 8:24 PM CDT 04/17/2020 8:24 PM CDT Phuong Frazier MD LAB - BLOOD BANK OR DERABLES Performing Organization Address City/[facility]/ZIP Co de Phone Number [facility] LAB [address] [place] [address] * PREPARE (CROSSMATCH) RBC UNIT(S), 1 Units (04/17/2020 8:12 PM CDT) Unit Description AS1 LR PRBC [facility] B[facility] LAB Unit ABO A [facility] Unit Rh POS [facility] Product Number R02 [facility] B[facility]OD [facility] LAB Unit Donor # [id number] [facility] BLOOD BANK LAB Unit Status released [facility] BLO OD BANK LAB Product Code [id number] [facility] BL OOD BANK LAB Blood Type Barcode 6200 [facility] B[facility] LAB Expiration Date S [facility] Unit Description AS1 LR PRBC [facility] B[facility] LAB Unit ABO A [facility] Unit Rh POS [facility] Product Number R02 [facility] BLOOD [facility] LAB Unit Donor # [id number] [facility] BLOOD BANK LAB Unit Status transfused [facility] BL OOD BANK LAB Product Code [id number] [facility] BL OOD [facility]ANK LAB Blood Type Barcode 6200 [facility] BLOOD [facility]ANK LAB Expiration Date S [facility] BLO[facility] LAB Blood Bank BLOOD SPECIMEN / Unknown 04/17/2020 8:12 PM CDT 04/17/2020 8:16 PM CDT Shayna Chirinos MD LAB - BLOOD BANK ORDERABLES Performing Organization Address [facility]/ZIP Co de Phone Number [facility] BLOOD BANK LAB [address] [place] [address] * PREPARE (CROSSMATCH) RBC UNIT(S), 1 Units (04/17/2020 8:12 PM CDT) Unit Description AS1 LR PRBC [facility] BLOOD [facility]ANK LAB Unit ABO A [facility] BLOOD [facility] LAB Unit Rh POS [facility] BLOOD BANK LAB Product Number R02 [facility] BLOOD BANK LAB Unit Donor # [id number] [facility] BLOOD BANK LAB Unit Status released [facility] BLO OD BANK LAB Product Code [id number] [facility] BL OOD BANK LAB Blood Type Barcode 6200 [facility] BLOOD BANK LAB Expiration Date S [facility] BLOOD [facility] LAB Unit Description AS1 LR PRBC [facility] BLOOD [facility] LAB Unit ABO A [facility] BLOOD [facility] LAB Unit Rh POS [facility] BLOOD [facility] Product Number R02 [facility] B[facility] Unit Donor # [id number] [facility] C BLOOD BANK LAB Unit Status transfused [facility] OOD [facility] Product Code [id number] [facility] OOD BANK LAB Blood Type Barcode 6200 [facility] BLOOD [facility]ANK LAB Expiration Date S [facility] BLOOD [facility] LAB Blood Bank BLOOD SPECIMEN / Unknown 04/17/2020 8:12 PM CDT 04/17/2020 8:16 PM CDT Marisa James MD LAB - BLOOD BANK ORD ERABLES [facility] BLOOD BANK LAB [address] [phone] * PATHOLOGY PERIPHERAL SMEAR REVIEW (04/17/2020 8:12 PM CDT) Case Report Pathology Interpretation Report ? Case: [id number] ? Authorizing Provider: ??Heraclio Dave MD ? Collected: ? 04/17/2020 08:12 PM ? Ordering Location: ? [facility] 4 ICU MEDICAL ? Received: ?04/18/2020 08:36 [...] correlation is advised. 04/18/2020 2:22 PM CDT [facility] Blood BLOOD SPECIMEN / Unknown 04/17/2020 8:12 PM CDT 04/18/2020 8:36 AM CDT Heraclio Dave MD LAB - PATHOLOGY/CYTO LOGY ORDERABLES Performing Organization Address City/[facility]/ZIP Co de Phone Number [facility] [address] [place] [address] * PREPARE CRYOPRECIPITATE UNIT (S), 2 Units (04/17/2020 8:12 PM CDT) Unit Description Thawed Cryp Clsd [facility] BLOOD [facility]ANK LAB Unit ABO A [facility] BLOOD [facility] LAB Unit Rh POS [facility] BLOOD [facility]ANK LAB Product Number [id number] [facility] BLOOD BANK LAB Unit Donor # [id number] [facility] C BLOOD BANK LAB Unit Status transfused [facility] BL OOD BANK LAB Product Code [id number] [facility] BL OOD [facility]ANK LAB Blood Type Barcode 6200 [facility] BLOOD [facility]ANK LAB Expiration Date S [facility] BLOOD [facility] LAB Unit Description Thawed Cryp Clsd [facility] BLOOD [facility] LAB Unit ABO A [facility] BLOOD [facility] LAB Unit Rh POS [facility] BLOOD [facility]ANK LAB Product Number [id number] [facility] BLOOD BANK LAB Unit Donor # [id number] [facility] C BLOOD BANK LAB Unit Status transfused [facility] BL OOD BANK LAB Product Code [id number] [facility] OOD BANK LAB Blood Type Barcode 6200 [facility] LAB Expiration Date S [facility] Blood Bank BLOOD SPECIMEN / Unknown 04/17/2020 8:12 PM CDT 04/17/2020 8:16 PM CDT Phuong Frazier MD LAB - BLOOD BANK OR DERABLES Performing Organization Address City/[facility]/ZIP Co de Phone Number [facility] BLOOD [facility]ANK LAB [address] [phone] * PREPARE (CROSSMATCH) RBC UNIT(S), 2 Units (04/17/2020 8:12 PM CDT) Unit Description AS1 LR PRBC [facility] BLOOD BANK LAB Unit ABO A [facility] BLOOD [facility]ANK [facility] Unit Rh POS [facility] BLOOD [facility] Product [facility] R02 [facility] BLOOD [facility] LAB Unit Donor # [id number] [facility] BLOOD BANK LAB Unit Status released [facility] OD BANK LAB Product [facility] [id number] [facility] OOD [facility] Blood Type Barcode 6200 [facility] BLOOD [facility] LAB [facility]piration Date [id number] [facility] Unit Description AS1 LR PRBC [facility] BLOOD [facility] Unit ABO A [facility]OD [facility] Unit Rh POS [facility] B[facility]OD [facility] Product [facility] R02 [facility] BLOOD [facility] Unit Donor # [id number] [facility]LOOD [facility] Unit Status released [facility] OD [facility]ANK [facility] Product [facility] [id number] [facility]OD [facility] Blood Type Barcode 6200 [facility] Expiration [facility] [id number] [facility]LO[facility] Unit Description AS1 LR PRBC [facility] [facility] Unit ABO A [facility] BLOOD BANK LAB Unit Rh POS [facility] BLOOD [facility]ANK LAB Product Number R02 [facility] BLOOD BANK LAB Unit Donor # [id number] [facility] Unit Status released [facility] OD BANK LAB Product Code [id number] [facility] BL OOD [facility]ANK LAB Blood Type Barcode 6200 [facility] BLOOD [facility]ANK LAB Expiration Date [id number] [facility] BLOOD BANK LAB Unit Description AS1 LR PRBC [facility] BLOOD [facility]ANK LAB Unit ABO A [facility] BLOOD [facility] LAB Unit Rh POS [facility] BLOOD [facility] LAB Product Number R02 [facility] BLOOD [facility]ANK LAB Unit Donor # [id number] [facility] Unit Status released [facility] OD BANK LAB Product Code [id number] [facility]OD [facility] Blood Type Barcode 6200 [facility] BLOOD [facility] LAB Expiration Date [id number] [facility] BLOOD [facility]ANK LAB Unit Description AS1 LR PRBC [facility] BLOOD [facility] LAB Unit ABO A [facility] BLOOD [facility] Unit Rh POS [facility] BLOOD BANK LAB Product Number R44 [facility] BLOOD BANK LAB Unit Donor # [id number] [facility] Unit Status transfused [facility] OOD BANK LAB Product Code [id number] [facility] OOD BANK LAB Blood Type Barcode 6200 [facility] BLOOD BANK LAB Expiration Date [id number] [facility] BLOOD BANK LAB Blood Bank BLOOD SPECIMEN / Unknown 04/17/2020 8:12 PM CDT 04/17/2020 8:16 PM CDT Mayuri Norton MD LAB - BLOOD BANK ORD ERABLES [facility] BLOOD BANK LAB [address] [phone] * PREPARE (CROSSMATCH) RBC UNIT(S), 1 Units (04/17/2020 8:12 PM CDT) Unit Description AS1 LR PRBC [facility] BLOOD BANK LAB Unit ABO A [facility] BLOOD BANK LAB Unit Rh POS [facility] BLOOD BANK LAB Product Number R02 [facility] BLOOD BANK LAB Unit Donor # [id number] [facility] Unit Status transfused [facility] BL OOD BANK LAB Product Code [id number] [facility]OD [facility] Blood Type Barcode 5520 [facility] BLOOD BANK LAB Expiration Date S [facility] Blood Bank BLOOD SPECIMEN / Unknown 04/17/2020 8:12 PM CDT 04/17/2020 8:16 PM CDT Mayuri Norton MD LAB - BLOOD BANK ORD ERABLES Performing Organization Address City/[facility]/ZIP Co de Phone Number [facility] BLOOD BANK LAB [address] [place] [address] * PREPARE FFP UNIT(S), 1 Units (04/17/2020 8:12 PM CDT) Unit Description Thawed Plasma 5D [facility] BLOOD BANK LAB Unit ABO AB [facility] BLOOD BANK LAB Unit Rh POS [facility] BLOOD BANK LAB Product Number [id number] [facility] BLOOD BANK LAB Unit Donor # [id number] [facility] Unit Status released [facility] BLO OD BANK LAB Product Code [id number] [facility]OD [facility]ANK LAB Blood Type Barcode 8400 [facility] BLOOD BANK LAB Expiration Date [id number] [facility]LO[facility] LAB Unit Description Thawed Plasma 5D [facility] BLOOD BANK LAB Unit ABO AB [facility] BLOOD [facility]ANK LAB Unit Rh POS [facility] BLOOD BANK LAB Product Number [id number] [facility] BLOOD BANK LAB Unit Donor # [id number] [facility] BLOOD BANK LAB Unit Status transfused [facility] BL OOD BANK LAB Product Code [id number] [facility] BL OOD [facility]ANK LAB Blood Type Barcode 8400 [facility] BLOOD BANK LAB Expiration Date [facility] BLOOD [facility]ANK LAB Unit Description Thawed Plasma 5D [facility] BLOOD BANK LAB Unit ABO AB [facility] BLOOD [facility] Unit Rh POS [facility] BLOOD BANK LAB Product Number [id number] [facility] BLOOD BANK LAB Unit Donor # [id number] [facility] Unit Status transfused [facility] BL OOD BANK LAB Product Code [id number] [facility] OOD [facility]ANK LAB Blood Type Barcode 8400 [facility] BLOOD BANK LAB Expiration Date [facility] BLOOD BANK LAB Blood Bank BLOOD SPECIMEN / Unknown 04/17/2020 8:12 PM CDT 04/17/2020 8:16 PM CDT Afsaneh Sandoval MD LAB - BLOOD BANK ORD ERABLES [facility] BLOOD BANK LAB [address] [phone] * PREPARE PLATELET PHERESIS UNIT(S), 2 Units (04/17/2020 8:12 PM CDT) Unit Description LR PLT Pher IRR [facility] BLOOD BANK LAB Unit ABO AB [facility] BLOOD BANK LAB Unit Rh POS [facility] BLOOD BANK LAB Product Number P14 [facility] BLOOD BANK LAB Unit Donor # [id number] [facility]LOOD [facility] Unit Status transfused [facility] OOD BANK LAB Product Code [id number] [facility] BL OOD BANK LAB Blood Type Barcode 8400 [facility] BLOOD BANK LAB Expiration Date [facility] BLOOD [facility]ANK [facility] Unit Description LR PLT Pheresis [facility] BLOOD BANK LAB Unit ABO A [facility] BLOOD [facility]ANK [facility] Unit Rh POS [facility] BLOOD BANK LAB Product Number P01 [facility] BLOOD BANK LAB Unit Donor # [id number] [facility] Unit Status released [facility] BLO OD BANK LAB Product Code [id number] [facility] OOD BANK LAB Blood Type Barcode 6200 [facility] BLOOD BANK LAB Expiration Date [facility] BLOOD [facility] Unit Description LR PLT Pheresis [facility] BLOOD BANK LAB Unit ABO A [facility]LO[facility] Unit Rh POS [facility] BLOOD B[facility] Product Number P04 [facility] BLOOD BANK LAB Unit Donor # [id number] [facility] BLOOD [facility]ANK LAB Unit Status released [facility] BLO OD BANK LAB Product Code [id number] [facility] BL OOD [facility]ANK LAB Blood Type Barcode 6200 [facility] BLOOD BANK LAB Expiration Date [id number] [facility] BLOOD [facility]ANK LAB Blood Bank BLOOD SPECIMEN / Unknown 04/17/2020 8:12 PM CDT 04/17/2020 8:16 PM CDT Afsaneh Sandoval MD LAB - BLOOD BANK ORD ERABLES Performing Organization Address City/[facility]/ZIP Co de Phone Number [facility] BLOOD BANK LAB [address] [phone] * PREPARE PLATELET PHERESIS UNIT(S), 2 Units (04/17/2020 8:12 PM CDT) Pathologist [facility] Unit Description LR PLT Pheresis [facility] BLOOD BANK LAB Unit ABO A [facility] BLOOD BANK LAB Unit Rh POS [facility] BLOOD BANK LAB Product Number P02 [facility] BLOOD BANK LAB Unit Donor # [id number] [facility]LOOD [facility] Unit Status transfused [facility] BL OOD BANK LAB Product Code [id number] [facility] BL OOD [facility]ANK LAB Blood Type Barcode 6200 [facility] BLOOD BANK LAB Expiration Date [id number] [facility] BLOOD [facility] LAB Blood Bank BLOOD SPECIMEN / Unknown 04/17/2020 8:12 PM CDT 04/17/2020 8:16 PM CDT Mayuri Norton MD LAB - BLOOD BANK ORD ERABLES Performing Organization Address [facility] Co de Phone Number [facility] BLOOD BANK LAB [address] [place] [address] * (ABNORMAL) SLIDE SCAN HEMATOLOGY (04/17/2020 8:12 PM CDT) Pathologist [facility] Platelet Estimation Markedly decreased(A ) Normal, Adequate platelets 04/17/2020 8:39 PM CDT [facility] Anisocytosis 1+(A) None 04/17/2020 8:39 PM CDT [facility] Blood BLOOD SPECIMEN / Unknown Venipuncture / Unknown 04/17/2020 8:12 PM CDT 04/17/2020 8:16 PM CDT Annabella Johnson MD LAB - HEMATOLOGY ORD ERABLES [facility] [address] [place] [address] * PREPARE PLATELET PHERESIS UNIT(S), 2 Units (04/17/2020 8:12 PM CDT) Unit Description LR PLT Pheresis [facility] BLOOD BANK LAB Unit ABO A [facility] BLOOD BANK LAB Unit Rh POS [facility] BLOOD BANK LAB Product Number P02 [facility] BLOOD BANK LAB Unit Donor # [id number] [facility] BLOOD [facility] Unit Status transfused [facility] BL OOD [facility]ANK LAB Product Code [id number] [facility]OD [facility]ANK LAB Blood Type Barcode 6200 [facility] BLOOD BANK LAB Expiration Date [facility] BLOOD [facility]ANK [facility] Unit Description LR PLT Pher IRR [facility] BLOOD [facility]ANK LAB Unit ABO B [facility] BLOOD BANK LAB Unit Rh POS [facility] BLOOD BANK [facility] Product Number P10 [facility] BLOOD BANK LAB Unit Donor [facility] [id number] [facility] Unit Status released [facility] BLO OD BANK LAB Product Code [id number] [facility]OD [facility]ANK LAB Blood Type Barcode 7300 [facility] BLOOD BANK LAB Expiration Date [facility] BLOOD [facility] Unit Description LR PLT Pheresis [facility] BLOOD [facility]ANK [facility] Unit ABO A [facility] BLOOD [facility] Unit Rh POS [facility] BLOOD BANK [facility] Product Number P02 [facility] BLOOD BANK LAB Unit Donor # [id number] [facility] Unit Status transfused [facility]OD [facility] Product Code [id number] [facility]OD [facility] Blood Type Barcode 6200 [facility] BLOOD [facility]ANK LAB Expiration Date [facility] BLOOD [facility] Unit Description LR PLT Pheresis [facility] BLOOD [facility] Unit ABO A [facility]LO[facility] Unit Rh POS [facility] BLOOD [facility] Product Number P02 [facility] BLOOD BANK LAB Unit Donor # [id number] [facility] Unit Status transfused [facility] OOD [facility]ANK LAB Product Code [id number] [facility]OD [facility] Blood Type Barcode 6200 [facility] BLOOD BANK LAB Expiration Date [facility] BLOOD [facility] Unit Description LR PLT Pheresis [facility] BLOOD [facility]ANK LAB Unit ABO A [facility] BLOOD [facility] Unit Rh POS [facility] BLOOD [facility] Product Number P02 [facility] BLOOD BANK LAB Unit Donor # [id number] [facility] Unit Status transfused [facility] OOD [facility] Product Code [id number] [facility] OOD [facility]ANK LAB Blood Type Barcode 6200 [facility] BLOOD BANK LAB Expiration Date [id number] [facility] BLOOD [facility] LAB Blood Bank BLOOD SPECIMEN / Unknown 04/17/2020 8:12 PM CDT 04/17/2020 8:16 PM CDT Annabella Johnson MD LAB - BLOOD BANK ORD ERABLES [facility] BLOOD BANK LAB [address] [place] [address] * PREPARE (CROSSMATCH) RBC UNIT(S), 2 Units (04/17/2020 8:12 PM CDT) Unit Description AS1 LR PRBC [facility] BLOOD BANK LAB Unit ABO A [facility] BLOOD BANK LAB Unit Rh POS [facility] BLOOD BANK LAB Product Number R02 [facility] BLOOD BANK LAB Unit Donor # [id number] [facility] BLOOD [facility] Unit Status transfused [facility]OD [facility] Product Code [id number] [facility]OD [facility] LAB Blood Type Barcode 6200 [facility] BLOOD BANK LAB Expiration Date S [facility]LO[facility] LAB Unit Description AS1 LR PRBC [facility] BLOOD [facility]ANK LAB Unit ABO A [facility] BLOOD [facility]ANK LAB Unit Rh POS [facility] BLOOD BANK LAB Product Number R43 [facility] BLOOD BANK LAB Unit Donor # [id number] [facility] Unit Status transfused [facility]OD [facility] Product Code [id number] [facility]OD [facility] Blood Type Barcode 6200 [facility] BLOOD BANK LAB Expiration Date [id number] [facility]LOOD [facility] Unit Description AS1 LR PRBC [facility] BLOOD [facility]ANK LAB Unit ABO A [facility] BLOOD [facility]ANK LAB Unit Rh NEG [facility] BLOOD BANK LAB Product Number R02 [facility] BLOOD BANK LAB Unit Donor # [id number] [facility] Unit Status transfused [facility] OOD [facility] LAB Product Code [id number] [facility] BL OOD BANK LAB Blood Type Barcode 0600 [facility] BLOOD BANK LAB Expiration Date [id number] [facility] Unit Description AS5 LR PRBC [facility] BLOOD [facility]ANK LAB Unit ABO A [facility] BLOOD [facility]ANK [facility] Unit Rh POS [facility] BLOOD BANK LAB Product [facility] R22 [facility] BLOOD BANK LAB Unit Donor # [id number] [facility] BLOOD BANK LAB Unit Status transfused [facility] OOD BANK LAB Product Code [id number] [facility] OOD [facility]ANK LAB Blood Type Barcode 6200 [facility] BLOOD BANK LAB Expiration Date [id number] [facility]LO[facility] LAB Blood Bank BLOOD SPECIMEN / Unknown 04/17/2020 8:12 PM CDT 04/17/2020 8:16 PM CDT Annabella Johnson MD LAB - BLOOD BANK ORD ERABLES Performing Organization Address [facility] Co de Phone Number [facility] BLOOD BANK LAB [address] [place] [address] * TYPE + SCREEN PANEL (04/17/2020 8:12 PM CDT) Pathologist [facility] ABO Rh A POS 04/17/2020 8:47 PM CDT [facility] BLOOD BANK LAB Antibody Screen NEG 0 8:47 PM CDT [facility] BLOOD BANK LAB Blood Bank BLOOD SPECIMEN / Unknown Venipuncture / Unknown 04/17/2020 8:12 PM CDT 04/17/2020 8:16 PM CDT Annabella Johnson MD LAB - BLOOD BANK ORD ERABLES Performing Organization Address City/[facility]/ZIP Co de Phone Number [facility] BLOOD BANK LAB [address] [place] [address] * (ABNORMAL) CBC W AUTO DIFFERENTIAL (04/17/2020 8:12 PM CDT) WBC 7.9 4.4 - 10.7 x10E9/L 04/17/2020 8:26 PM CDT [facility] WBC Corrected 04/17/2020 8:26 PM CDT [facility] RBC 3.87 3.80 - 5.20 x10E12/L 04/17/2020 8:26 PM CDT [facility] Hemoglobin 10.1(L) 12.0 - 15.6 gm/dL 04/17/2020 8: PM CDT [facility] Hematocrit 31.8(L) 35.9 - 45.5 % 04/17/2020 8: PM CDT [facility] MCV 82.2 80.7 - 98.3 fl 04/17/2020 8: PM CDT [facility] MCH 26.1(L) 26.7 - 34.0 pg 04/17/2020 8: PM CDT [facility] MCHC 31.8 30.8 - 35.9 gm/dL 04/17/2020 8: PM CDT [facility] Platelet Count 30(LL) 153 - 416 x10E9/L 04/17/2020 8: PM [facility] RDW-CV 19.3(H) 12.1 - 14.9 % 04/17/2020 8: PM CDT [facility] Neutrophils % 70.2 44.0 - 73.0 % 04/17/2020 8: PM CDT [facility] Lymphocytes % 19.9(L) 20.0 - 43.0 % 04/17/2020 8: PM CDT [facility] Monocytes % 6.7 5.0 - 13.0 % 04/17/2020 8: PM CDT [facility] Eosinophils % 1.3 0.0 - 6.0 % 04/17/2020 8: PM CDT [facility] Basophils % 0.5 0.0 - 2.0 % 04/17/2020 8: PM CDT [facility] Immature Granulocytes 1.4(H) 0 - 1 % 04/17/2020 8: PM CDT [facility] Neutrophil Absolute 5.54 2.01 - 7.14 x10E9/L 04/17/2020 8: PM CDT [facility] Lymphocytes Absolute 1.57 1.07 - 3.94 x10E9/L 04/17/2020 8: PM CDT [facility] Monocytes Absolute 0.53 0.26 - 1.07 x10E9/L 04/17/2020 8: PM CDT [facility] Eosinophils Absolute 0.10 0 - 0.47 x10E9/L 04/17/2020 8:26 PM CDT [facility] Basophils Absolute 0.04 0 - 0.08 x10E9/L 04/17/2020 8:26 PM CDT [facility] Immature Granulocytes Absolute 0.11(H) 0.00 - 0.06 x10E9/L 04/17/2020 8:26 PM CDT [facility] nRBC Auto 0 /100 WBC 04/17/2020 8:26 PM CDT [facility] Blood BLOOD SPECIMEN / Unknown Venipuncture / Unknown 04/17/2020 8:12 PM CDT 04/17/2020 8:16 PM CDT Annabella Johnson MD LAB - HEMATOLOGY ORD ERABLES [facility] [address] [place] [address] documented in this encounter Visit Diagnoses Diagnosis [...] orally documented in this encounter Care Teams Fiber Optic Central Office Installer Relationship Specialty Start Date End Date Alejandro Blevins MD [address] [place] [id number] PCP - General Family Medicine 12/07/19 documented as of this encounter
--- OUTSIDE RECORDS SUMMARY | 2024-07-11 09:48 | XMS_ITS | Encounter Summary ---
Author Organization [facility] Address [address] [place] [address] Care Team Providers Care Employment Trainer Name Role Phone Alejandro Blevins MD Primary Care Provider [phone] Reason for Visit * Reason Onset Date Comments MEDICATION REFILL 02/05/2020 Encounter Details Date Type Department Care Team (Late st Contact Info) Description 02/05/2020 Telephone [facility] PHYS OB [address] [place], [place] [id number] Ruben Sorto MD [address] [place], [place] [id number] MEDICATION REFILL Social History Tobacco Use Types [...] on filedocumented in this encounter Care Teams Employment Trainer Relationship Specialty Start Date End Date Alejandro Blevins MD [address] [place] [phone] PCP - General Family Medicine 12/07/19 documented as of this encounter
--- OUTSIDE RECORDS SUMMARY | 2024-07-11 09:49 | XMS_ITS | Encounter Summary ---
Author Organization [facility] Address [address] [place] [address] Care Team Providers Care Tester Food Products Name Role Phone Alejandro Blevins MD Primary Care Provider [phone] Reason for Visit * Reason Onset Date Comments Scheduling 12/11/2019 Encounter Details Date Type Department Care Team (Late st Contact Info) Description 12/11/2019 Telephone [facility] MATERNAL/ EVALUATION UNIT [address] [facility] [place] [address] Tiffanie Whitney Scheduling Social History Tobacco Use [...] 10:50 AM CDT Called the number in [employer] left a VM with the patients upcoming appointment and date also the visitor policy and mask requirement. documented in this encounter Plan of Treatment Not on file documented as of this encounter Visit Diagnoses Not on filedocumented in this encounter Care Teams Tester Food Products Relationship Specialty Start Date End Date Alejandro Blevins MD [address] [place] [phone] PCP - General Family Medicine 12/07/19 documented as of this encounter
--- OUTSIDE RECORDS SUMMARY | 2024-07-11 09:49 | XMS_ITS | Encounter Summary ---
Author Organization [facility] Address [address] [place] [address] Care Team Providers Care Anime Designer Name Role Phone Alejandro Blevins MD Primary Care Provider [phone] Reason for Visit * Reason Onset Date Comments Reminder Call 01/15/2020 Encounter Details Date Type Department Care Team (Late st Contact Info) Description 01/15/2020 Telephone [facility] MATERNAL/ EVALUATION UNIT [address] [facility] [place] [address] Gillian Orozco, RN Reminder Call Social History [...] on filedocumented in this encounter Care Teams Anime Designer Relationship Specialty Start Date End Date Alejandro Blevins MD [address] [place] [phone] PCP - General Family Medicine 12/07/19 documented as of this encounter
--- OUTSIDE RECORDS SUMMARY | 2024-07-11 09:49 | XMS_ITS | Encounter Summary ---
Author Organization [facility] Address [address] [place] [address] Care Team Providers Care Head Cashier Name Role Phone Alejandro Blevins MD Primary Care Provider +1- [phone] Encounter Details Date Type Department Care Team [...] on filedocumented in this encounter Care Teams Head Cashier Relationship Specialty Start Date End Date Alejandro Blevins MD [address] [place] [phone] PCP - General Family Medicine 12/07/19 documented as of this encounter
--- OUTSIDE RECORDS SUMMARY | 2024-07-11 09:49 | XMS_ITS | Encounter Summary ---
Author Organization [facility] Address [address] [place] [address] Care Team Providers Care Nursing Specialist Name Role Phone Alejandro Blevins MD Primary Care Provider +1- [phone] Encounter Details Date Type Department Care Team [...] on filedocumented in this encounter Care Teams Nursing Specialist Relationship Specialty Start Date End Date Alejandro Blevins MD [address] [place] [phone] PCP - General Family Medicine 12/07/19 documented as of this encounter
--- OUTSIDE RECORDS SUMMARY | 2024-07-11 09:49 | XMS_ITS | Encounter Summary ---
Author Organization [facility] Address [address] [place] [address] Care Team Providers Care Wharfinger Chief Name Role Phone Alejandro Blevins MD Primary Care Provider +1- [phone] Reason for Visit * Reason Comments Ultrasound Encounter Details Date Type Department Care Team (Late st Contact Info) Description 01/23/2020 1:05 PM CDT - 01/23/2020 11:59 PM CDT Hospital Encounter [facility] MATERNAL/ EVALUATION UNIT [address] [place] [address] Trang, Machelle Hernandez MD [address] [facility] [address] [place] [address] Discharge Disposition: Home or Self Care Social [...] CDT Narrative 01/23/2020 4:21 PM CDT ? [facility] ? Maternal & Care Center ?PHONE: ??FAX: FETUS A Pat. Name: ?HILLARY SMALLS Pat. No: ?[id number] Study Date: ?? 01/23/2020 ??2:48pm , Age: ? 1990, 29 Pregnancies: ?? 4, Para 2, Ab 1 Height: ? 63 in Weight: ? 117 lb LMP: ?Unknown GA by Base: ?? 25w6d ?? FABIAN: 05/01/2020 GA by US: ? 25w2d ?? FABIAN: 05/05/2020 GA Selected: ??25w6d (From [facility]) FABIAN: ?05/01/2020 Referring MD: Edgard, , [facility] Hospice Nurse Practitioner: ??Cintia Messina RDMS, RVT CPT4: ? 03095 [phone] BMI: ?20.72 Hist/Ind: ? DC/DA Twins ? Anatomy Screen ?Tobacco Use ?Marijuana/Methamphetamine ?use in early MEASUREMENTS & AGE ? GROWTH EVALUATION Measurement ??GA ? Range ? Srce %for GA Ratios ----- ---- ------- BPD ??6.1 cm 24w5d (74r7s-76x0p) Hadl BPD 9% FL/BPD 0.75 (0.71 - 0.87) HC ??23.0 cm 25w0d (80x8y-45y1y) Hadl HC ??7% FL/AC ??0.21 (0.20 - 0.24) AC ??21.7 cm 26w1d (05i1n-32r1t) Hadl AC ??53% HC/AC ??1.06 (1.01 - 1.20) FL ?? 4.5 cm 25w0d (56q4g-74o8z) Hadl FL ??15% CI ? 0.74 (0.70 - 0.86) HL ?? 4.4 cm 26w1d (73l8n-17v5h) Dontae HL ??55% GA for sonogram 25w2d (94e4e-06d5t) ?? Weight Estimate: based on (BPD,HC,AC,FL) Avg [...] FETUS B Pat. Name: ?HILLARY SMALLS. No: ?[id number] Study Date: ?? 01/23/2020 ??2:48pm , Age: ? 1990, 29 Pregnancies: ?? 4, Para 2, Ab 1 Height: ? 63 in Weight: ? 117 lb LMP: ?Unknown GA by Base: ?? 25w6d ?? FABIAN: 05/01/2020 GA by US: ? 25w1d ?? FABIAN: 05/06/2020 GA Selected: ??25w6d (From [facility]) FABIAN: ?05/01/2020 Referring MD: MD Edgard, [facility] Hospice Nurse Practitioner: ??Cintia Messina RDMS, RVT CPT4: ? 77286 [phone] Hist/Ind: ? DC/DA Twins ? Anatomy Screen ?Tobacco Use ?Marijuana/Methamphetamine ?use in early MEASUREMENTS & AGE ? GROWTH EVALUATION Measurement ??GA ? Range ? Srce %for GA Ratios ----- ---- ------- BPD ??5.9 cm 24w0d (50e4a-25f9d) Hadl BPD 2% FL/BPD 0.77 (0.71 - 0.87) HC ??22.4 cm 24w3d (76l2g-69o3l) Hadl HC ??2% FL/AC ??0.20 (0.20 - 0.24) AC ??22.7 cm 27w0d (89r2w-23q3r) Hadl AC ??78% HC/AC ??0.99 (1.01 - 1.20* FL ?? 4.5 cm 25w0d (77t8s-37k6f) Hadl FL ??15% CI ? 0.74 (0.70 - 0.86) HL ?? 4.2 cm 25w1d (85a6d-62i9p) Dontae HL ??38% GA for sonogram 25w1d (38x4t-71y6i) ?? Weight Estimate: based on (BPD,HC,AC,FL) Avg ?Weight: 866 gm (740-993gm) Hadloc ? : 1lbs, 14oz ? Normal: 889 gm (667- 3920gm) Hadlo ? Wt% ? 42% for 25w6d [...] ultrasonics documented in this encounter Care Teams Wharfinger Chief Relationship Specialty Start Date End Date Alejandro Blevins MD [address] [place] [address] PCP - General Family Medicine 12/07/19 documented as of this encounter
--- OUTSIDE RECORDS SUMMARY | 2024-07-11 09:49 | XMS_ITS | Encounter Summary ---
Author Organization [facility] Address [address] [place] [address] Care Team Providers Care Process Description Writer Name Role Phone Alejandro Blevins MD Primary Care Provider [phone] [phone] Reason for Visit * Reason Comments Routine Visit * Evaluate & Treat (Routine) - Closed Specialty Diagnoses / Procedures Referred By Scarlet guzman Referred To Contact Maternal Medicine Diagnoses Supervision of other high risk pregnancies, unspecified trimester (HCC) Anemia complicating , unspecified trimester (HCC) Unspecified viral hepatitis C without hepatic coma Procedures RI FULL ROUT OBSTE CARE,VAGINAL Walter George MD [address] [place] [address] [facility] [address] [place] [address] Referral ID Status Reason Start Date Expiration Date Visits Re quested Visits Authorized [id number] Closed 12/19/2019 06/16/2020 18 18 Encounter Details Date Type Department Care Team (Late st Contact Info) Description 01/23/2020 1:00 PM CDT - 01/23/2020 1:04 PM CDT Hospital Encounter [facility] MATERNAL/ EVALUATION UNIT [address] [place] [address] Machelle Costello MD [address] [facility] [address] [place] [address] Discharge Disposition: Home or Self Care Social [...] input(s): PROTEINUA, GLUCOSEUA, KETONEUA in the last 46556 hours. A/P: Hillary Smalls is a 29 [...] her teeth. Normal bone marrow bx with soda column operator 6 years ago per her own report. Broad differential, including chronic hepatitis C, severe iron deficiency, nutritional deficiency, drug induced, autoimmune. Rheumatic a possibility with elevated anticardiolipin antibody, though MARQUITA is negative - rheum referral made. Would not pursue anticoagulation or ASA at this time due to thrombocytopenia. Receiving Inspector - Dr. Alex in [facility]. S/p weekly venofer infusions and B12 [...] at OSH Quant 165,000 Has followed with distribution lineman, Dr. Jain, in the past. ?? 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 UTI in Urine [...] on cessation ?? Pt following up with Receiving Inspector in [place], now s/p Venofer infusions and B12 injections, [...] 6. Tobacco use -Has been seen by Receiving Inspector in [place]. Received an RBC transfusion (2 units) at [facility] in November, with appropriate rise in Hgb. [...] 32 weeks. Machelle Costello MD Maternal Medicine [facility] * Marbella Valdovinos - 01/23/2020 1:00 PM [...] TOX URINE PANEL (01/23/2020 2:38 PM CDT) [facility] Amphetamines Screen Urine Detected(A) Not detected 01/23/2020 3:12 PM CDT [facility] Barbiturates Screen Urine Not detected Not detected 01/23/2020 3:12 PM CDT [facility] Benzodiazepines Screen Urine Not detected Not detected 01/23/2020 3:12 PM CDT [facility] Cannabinoids Screen Urine Not detected Not detected 01/23/2020 3:12 PM CDT [facility] Cocaine Screen Urine Not detected Not detected 01/23/2020 3:12 PM CDT [facility] Fentanyl Urine Not detected Not detected 01/23/2020 3:12 PM CDT [facility] Methadone Screen Urine Not detected Not detected 01/23/2020 3:12 PM CDT [facility] Opiate Screen Urine Not detected Not detected 01/23/2020 3:12 PM CDT [facility] Phencyclidine Screen Urine Not detected Not detected 01/23/2020 3:12 PM CDT [facility] Urine URINE / Unknown Collection / Unknown 01/23/2020 2:38 PM CDT 01/23/2020 2:49 PM CDT Narrative [facility] - 01/23/2020 3:12 PM CDT This [...] MD LAB - URINE CHEMISTR Y ORDERABLES [facility] [address] [place], [place] [id number] * (ABNORMAL) CULTURE URINE (01/23/2020 2:38 PM CDT) Culture Urine >100,000 CFU/mL Escherichia coli(A) BERT 01/25/2020 3:46 AM CDT [facility] Urine URINE SPECIMEN OBTAINED BY CLEAN [...] James MD LAB - MICROBIOLOGY O RDERABLES [facility] [address] [place] [address], [facility] [phone] documented in this encounter Visit Diagnoses Diagnosis Supervision of high risk in second trimester (HCC)- Primary Unspecified high-risk Other iron deficiency anemia Chronic hepatitis C without hepatic coma (HCC) Thrombocytopenia affecting (HCC) documented in this encounter Care Teams Process Description Writer Relationship Specialty Start Date End Date Alejandro Blevins MD [address] [place] [address] PCP - General Family Medicine 12/07/19 documented as of this encounter
--- OUTSIDE RECORDS SUMMARY | 2024-07-11 09:49 | XMS_ITS | Encounter Summary ---
Author Organization [facility] Address [address] [place] [address] Care Team Providers Care Electronic Repair Troubleshooter Name Role Phone Alejandro Blevins MD Primary Care Provider [phone] Reason for Visit * Reason Onset Date Comments Pre Appointment Management 12/18/2019 Encounter Details Date Type Department Care Team (Late st Contact Info) Description 12/18/[address] [facility] MATERNAL/ EVALUATION UNIT [address] [place] [address] Homa Cook, VISHNU Pre Appointment Management Social [...] doing screening at the door. Left callback [phone]. documented in this encounter Plan of Treatment Not on file documented as of this encounter Visit Diagnoses Not on filedocumented in this encounter Care Teams Electronic Repair Troubleshooter Relationship Specialty Start Date End Date Alejandro Blevins MD [address] [place] [phone] PCP - General Family Medicine 12/07/19 documented as of this encounter
--- OUTSIDE RECORDS SUMMARY | 2024-07-11 09:49 | XMS_ITS | Encounter Summary ---
Author Organization [facility] Address [address] [place] [address] Care Team Providers Care Combat Rifle Crewmember Name Role Phone Alejandro Blevins MD Primary Care Provider [phone]- [phone] Reason for Visit * Reason Comments Ultrasound Encounter Details Date Type Department Care Team (Latest Contact Info) Description 12/19/2019 11:15 AM CDT - 12/19/2019 11:21 AM CDT Hospital Encounter [facility] MATERNAL/ EVALUATION UNIT [address] [place] [address] Ino Soares MD [address] [facility] [address] [place] [address] Discharge Disposition: Home or Self Care Social [...] CDT Narrative 12/19/2019 4:25 PM CDT ? [facility] ? Maternal & Care Center ?PHONE: ??FAX: FETUS A Pat. Name: ?HILLARY DO. No: ?[id number] Study Date: ?? 12/19/2019 ??11:45am , Age: ? 1990, 29 Pregnancies: ?? 4, Para 2, Ab 1 Height: ? 63 in Weight: ? 117 lb LMP: ?Unknown GA by US: ? 20w4d ?? FABIAN: 05/03/2020 GA Selected: ??20w6d (Outside Scan) FABIAN: ?05/01/2020 Referring MD: Edgard, , [facility] Demurrage Agent: ??Cintia Messina, VISHNU, RVT CPT4: ? [phone] BMI: ?20.72 Hist/Ind: ? DC/DA Twins ? Anatomy Screen ?Tobacco Use ?Marijuana/Methamphetamine ?use in early MEASUREMENTS & AGE ? GROWTH EVALUATION Measurement ??GA ? Range ? Srce %for GA Ratios ----- ---- ------- BPD ??4.8 cm 20w3d (33e5v-41p4g) Hadl BPD 30% FL/BPD 0.71 HC ??18.5 cm 20w6d (70p1k-52w7a) Hadl HC ??42% FL/AC ??0.22 AC ??15.3 cm 20w4d (71v6q-68r0m) Hadl AC ??32% HC/AC ??1.21 (1.06 - 1.24) FL ?? 3.4 cm 20w5d (02t4u-39h3d) Hadl FL ??35% CI ? 0.72 (0.70 - 0.86) HL ?? 3.3 cm 21w1d (19t8c-11s3f) Dontae HL ??55% Cere 2.1 cm 19w5d (69y2n-23p9s) Hill Cere23% GA for sonogram 20w4d (54s8c-18p1k) ?? Weight Estimate: based on (BPD,HC,AC,FL) Avg [...] FETUS B Pat. Name: ?HILLARY DO. No: ?[id number] Study Date: ?? 12/19/2019 ??11:45am , Age: ? 1990, 29 Pregnancies: ?? 4, Para 2, Ab 1 Height: ? 63 in Weight: ? 117 lb LMP: ?Unknown GA by US: ? 20w5d ?? FABIAN: 05/02/2020 GA Selected: ??20w6d (Outside Scan) FABIAN: ?05/01/2020 Referring MD: Edgard, , [facility] Demurrage Agent: ??Cintia Messina RDMS, RVT CPT4: ? [phone] Hist/Ind: ? DC/DA Twins ? Anatomy Screen ?Tobacco Use ?Marijuana/Methamphetamine ?use in early MEASUREMENTS & AGE ? GROWTH EVALUATION Measurement ??GA ? Range ? Srce %for GA Ratios ----- ---- ------- BPD ??4.7 cm 20w2d (91l4f-96d9h) Hadl BPD 27% FL/BPD 0.70 HC ??17.9 cm 20w2d (63b2l-63c6z) Hadl HC ??20% FL/AC ??0.20 AC ??16.6 cm 21w4d (28c8c-95t2k) Hadl AC ??70% HC/AC ??1.08 (1.06 - 1.24) FL ?? 3.3 cm 20w2d (82k6z-67f4f) Hadl FL ??26% CI ? 0.75 (0.70 - 0.86) HL ?? 3.2 cm 20w5d (43v1q-65t4d) Dontae HL ??48% Cere 2.1 cm 19w5d (87p5d-54h7x) Hill Cere23% GA for sonogram 20w5d (08a5u-46c2z) ?? Weight Estimate: based on (BPD,HC,AC,FL) Avg [...] on filedocumented in this encounter Care Teams Combat Rifle Crewmember Relationship Specialty Start Date End Date Alejandro Blevins MD [facility] [place] [address] PCP - General Family Medicine 12/07/19 documented as of this encounter
--- OUTSIDE RECORDS SUMMARY | 2024-07-11 09:49 | XMS_ITS | Encounter Summary ---
Author Organization [facility] Address [address] [place] [address] Care Team Providers Care Actuarial Trainee Name Role Phone Alejandro Blevins MD Primary Care Provider +1- [phone] Reason for Visit * Reason Onset Date Comments Pre Appointment Management 01/21/2020 Encounter Details Date Type Department Care Team (Late st Contact Info) Description 01/21/2020 Telephone [facility] MATERNAL/ EVALUATION UNIT [address] [place] [address] Cintia Messina Pre Appointment Management Social History [...] we will be doing screening at the [facility]. Left callback of [phone]. documented in this encounter Plan of Treatment Not on file documented as of this encounter Visit Diagnoses Not on filedocumented in this encounter Care Teams Actuarial Trainee Relationship Specialty Start Date End Date Alejandro Blevins MD [address] [place] [phone] PCP - General Family Medicine 12/07/19 documented as of this encounter
--- OUTSIDE RECORDS SUMMARY | 2024-07-11 09:49 | XMS_ITS | Encounter Summary ---
Author Organization [facility] Address [address] [place] [address] Care Team Providers Care Supervisor Composing Room Name Role Phone Alejandro Blevins MD Primary Care Provider [phone] Reason for Visit * Auth/Cert Specialty Diagnoses / Procedures Referred By Scarlet guzman Referred To Contact Referral ID Status Reason Start Date Expiration Date Visits Re quested Visits Authorized [id number] 1 1 Encounter Details Date Type Department Care Team (Latest Contact Info) Description 12/07/2019 9:14 PM CDT - 12/09/2019 5:55 PM CDT Hospital Encounter HC 5E ANTEPARTUM/MOTHER BABY [address] [place] [address] Asuncion Aparicio MD [address] [place] [address] Discharge Disposition: Home or Self Care Social [...] coming from an hour or so away- [facility]. * Christiano Pino MD - 12/09/2019 10:10 [...] being discharged should follow-up with her primary log skidder (patient has been instructed to call her primary log skidder office soon after D/c to schedule appointment) [...] patient has had bone marrow biopsy with log skidder the around 6 years ago, after that [...] not have outpatient OB - management per [facility] team ?? UTI: UA positive for E coli at outside hospital on Macrobid ?? history of drug use patient denies IV drug use currently however UDS positive for meth. counseling to stop illicit drug use D/w RN Christiano Pino MD Hematology/Oncology [facility] * Geri Harding [...] 39* TBIL 0.2 TPROT 6.1* EGFR >60 [facility]/[place]: See separate procedure note MEDICATIONS FOR CURRENT [...] tablet 1 tablet, Oral, QDAY ?? [COMPLETED] rmtnggchgd-seeqlztssjqzd-hhxrfobj (FIORICET) 50-325-40 MG tablet 1 tablet, Oral, [...] QD, and vitamin. Should follow-up with primary log skidder on discharge. For thrombocytopenia, recommended ultrasound of liver and spleen and transfuse if platelets < 20 or if bleeding 2. Twins 1. Di/Di?- suspect based on US findings, will need confirmation 2. EFW: 282gm/268gm at [facility] on 12/08/2019 3. Dated by this scan 3. Chronic Hep C 1. With mild transaminitis at OSH 2. Repeat Quant pending, in 2018 quant was [id number] 3. Has followed with stitch rubber, Dr. Jain, in the past. 4. UTI [...] patient would be candidate for care at [facility] if desired Annabella Johnson MD 12/09/2019 3:35 [...] Plan MFM consult and detailed US at [facility] Will also need heme and hepatology referrals [...] transfusion. Left off the floor once from [phone] via a wheelchair with her visitor & [...] 11:45 AM CDT In to speak with Hillary regarding a blood transfusion that was ordered. [...] Adrian Cordova. - 12/08/2019 11:29 AM CDT Bottled Beverage Inspector spoke with Patient's in threshold of room. Patient was asleep in bed. asked Bottled Beverage Inspector for assistance in finding Cafeteria. Bottled Beverage Inspector offered support and escorted him to elevators. He shared concern for and hope that will be okay. This Bottled Beverage Inspector offered support through listening presence by engaging [...] at 19w0d gestation by ultrasound preformed at [facility] today with an Estimated Date of [...] Prioritized Patient presents as a HRT from [facility] for anemia. She presented there for [...] platelet count of 33 Hep C quant: [id number] in 2018 Hep A pos in 2018 Hep B vaccinated She has followed with a log skidder. Dr. Dick Noel and stitch rubber, Dr. Jain, in the past. Edelmira has [...] 33 4. She has followed with a log skidder. Dr. Dick Noel in the past 5. [...] TTP on top of my differential, consider [id number] testing if initial testing suggestive. 10. Consider Heme/Onc consult 2. Twins 1. Di/Di?- suspect based on US findings, will need confirmation 2. EFW: 282gm/268gm at [facility] on 12/08/2019 3. Dated by this scan 3. Chronic Hep C 1. With mild transaminitis at OSH 2. Repeat Quant pending, in 2018 quant was [id number] 3. Has followed with stitch rubber, Dr. Jain, in the past. 4. 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 She initially [...] home today. As per patient she had log skidder Dr Bonilla before and had even a [...] , should be doen as o/p with PCP/sewer inspector of her log skidder office) 2 units PRBC -folic acid 1 mg daily -continue MVI - vit b12 pending- if <400 start vit b12 1000 mcg daily - is being discharged should follow-up with her primary log skidder Thrombocytopenia:2/2 hepatitisc, nutritional def, ?etoh / occult [...] patient has had bone marrow biopsy with log skidder the around 6 years ago, after that [...] not have outpatient OB - management per [facility] team UTI: UA positive for E coli at outside hospital on Macrobid history of drug use patient denies IV drug use currently however UDS positive for meth. D/w RN and OB resident Thank you for this consult. We will continue to follow this patient with you. Please do not hesitate to contact us with further questions. Christiano Pino M.D. Hematology/Oncology [facility] documented in this [...] >0.99 index 12/11/2019 8:10 AM CDT [facility] ([facility]) Comment: ?Non-immune ? <0.90 ?Equivocal ??0.90 - 0.99 ?Immune ? >0.99 Blood BLOOD SPECIMEN / Unknown Lab Venipuncture / Unknown 12/09/2019 2:21 PM CDT 12/09/2019 2:33 PM CDT Narrative [facility] ([facility]) - 12/11/2019 8:10 AM CDT Performed at: ??01 - [facility] [address] [facility], [place], [place] ??[id number] Roller [employer] Utility Worker: Tyrone Rider PhD, Phone: ??[phone] Annabella Johnson MD LAB - SEROLOGY ORDER CRUZITO [facility] ([facility]) [address] [place] [address] * (ABNORMAL) CBC W AUTO DIFFERENTIAL (12/09/2019 2:21 PM CDT) WBC 16.0(H) 4.4 - 10.7 x10E9/L 12/09/2019 2:38 PM CDT [facility] WBC Corrected 12/09/2019 2:38 PM CDT [facility] RBC 3.94 3.80 - 5.20 x10E12/L 12/09/2019 2:38 PM CDT [facility] Hemoglobin 7.8(L) 12.0 - 15.6 gm/dL 12/09/2019 2:38 PM CDT [facility] Hematocrit 26.5(L) 35.9 - 45.5 % 12/09/2019 2:38 PM CDT [facility] MCV 67.3(L) 80.7 - 98.3 fl 12/09/2019 2:38 PM CDT [facility] MCH 19.8(L) 26.7 - 34.0 pg 12/09/2019 2:38 PM CDT [facility] MCHC 29.4(L) 30.8 - 35.9 gm/dL 12/09/2019 2:38 PM CDT [facility] Platelet Count 67(L) 153 - 416 x10E9/L 12/09/2019 2:38 PM [facility] RDW-CV 21.9(H) 12.1 - 14.9 % 12/09/2019 2:38 PM [facility] Neutrophils % 79.3(H) 44.0 - 73.0 % 12/09/2019 2:38 PM [facility] Lymphocytes % 10.6(L) 20.0 - 43.0 % 12/09/2019 2:38 PM [facility] Monocytes % 5.4 5.0 - 13.0 % 12/09/2019 2:38 PM [facility] Eosinophils % 1.8 0.0 - 6.0 % 12/09/2019 2:38 PM [facility] Basophils % 0.3 0.0 - 2.0 % 12/09/2019 2:38 PM [facility] Immature Granulocytes 2.6(H) 0 - 1 % 12/09/2019 2:38 PM [facility] Neutrophil Absolute 12.69(H) 2.01 - 7.14 x10E9/L 12/09/2019 2:38 PM T [facility] Lymphocytes Absolute 1.69 1.07 - 3.94 x10E9/L 12/09/2019 2:38 PM T [facility] Monocytes Absolute 0.86 0.26 - 1.07 x10E9/L 12/09/2019 2:38 PM [facility] Eosinophils Absolute 0.28 0 - 0.47 x10E9/L 12/09/2019 2:38 PM [facility] Basophils Absolute 0.04 0 - 0.08 x10E9/L 12/09/2019 2:38 PM [facility] Immature Granulocytes Absolute 0.41(H) 0.00 - 0.06 x10E9/L 12/09/2019 2:38 PM [facility] nRBC Auto 1 /100 WBC 12/09/2019 2:38 PM [facility] Blood BLOOD SPECIMEN / Unknown Lab Venipuncture / Unknown 12/09/2019 2:21 PM CDT 12/09/2019 2:33 PM CDT Annabella Johnson MD LAB - HEMATOLOGY ORD ERABLES [facility] [address] [place] [address] * TRANSFUSE RED BLOOD CELL LEUKOREDUCED UNIT(S) [...] 11:34 AM CDT) Hepatitis C Virus Quantitation [id number] IU/mL 12/19/2019 5:07 PM CDT [facility] ([facility]) Hepatitis C Virus Log 10 5.959 log10 IU/mL 12/19/2019 5:07 PM CDT [facility] ([facility]) Test Information Comment 12/19/19 5:07 PM CDT [facility] ([facility]) Comment:The quantitative ran ge of this assay is 15 IU/mL to 100 million IU/mL. Blood BLOOD SPECIMEN / Unknown Lab Venipuncture / Unknown 12/08/2019 11:34 AM CDT 12/08/2019 1:41 PM CDT Narrative [facility] ([facility]) - 12/19/2019 5:07 PM CDT Performed at: ??01 - [facility] [address] ??[id number] Roller Shop Utility Worker: Kiran Guerra MD, Phone: ??[phone] Christiano Pnio MD LAB - CHEMISTRY MIRI GO [facility] ([facility]) [address] [place] [address] * (ABNORMAL) COAGULATION PANEL W D-DIMER (12/08/2019 11:34 AM CDT) [facility] PT 12.6 12.1 - 14.8 sec 12/08/2019 1:10 PM CDT [facility] INR 1.0 0.9 - 1.1 12/08/2019 1:10 PM T [facility] PTT 27.9 23.0 - 38.4 sec 12/08/2019 1:10 PM T [facility] Fibrinogen 316 200 - 400 mg/dL 12/08/2019 1:10 PM [facility] D-Dimer 0.61(H) 0.27 - 0.50 ug/mL FEU 12/08/2019 1:10 PM [facility] Platelet Count 61(L) 153 - 416 x10E9/L 12/08/2019 1:10 PM T [facility] Blood BLOOD SPECIMEN / Unknown Lab Venipuncture / Unknown 12/08/2019 11:34 AM CDT 12/08/2019 12:31 PM CDT [facility] - 12/08/2019 1:10 PM CDT Conventional [...] Pino MD LAB - COAGULATION OR DERABLES [facility] [address] [place] [address] * (ABNORMAL) CARDIOLIPIN ANTIBODY IGG/IGM PANEL (12/08/2019 11:34 AM CDT) Cardiolipin Antibody IgG <9 0 - 14 GPL U/mL 12/11/2019 4:09 PM CDT [facility] ([facility]) Comment: ?Negative: ?<15 ?Indeterminate: ? 15 - 20 ?Low-Med Positive: >20 - 80 ?High Positive: ? >80 Cardiolipin Antibody IgM 29(H) 0 - 12 MPL U/mL 12/11/2019 4:09 PM CDT [facility] ([facility]) Comment: ?Negative: ?<13 ?Indeterminate: ? 13 - 20 ?Low-Med Positive: >20 - 80 ?High Positive: ? >80 Blood BLOOD SPECIMEN / Unknown Lab Venipuncture / Unknown 12/08/2019 11:34 AM CDT 12/08/2019 12:32 PM CDT Narrative [facility] ([facility]) - 12/11/2019 4:09 PM CDT Performed at: ??01 - [facility] [address] [place], [place] ??[id number] Rol[employer] Utility Worker: Tyrone Rider PhD, Phone: ??[phone] Christiano Pino MD LAB - SEROLOGY ORDER CRUZITO [facility] ([facility]) [address] [place] [address] * BETA-2 GLYCOPROTEIN 1 ANTIBODY IGG/IGM PANEL (12/08/2019 11:34 AM CDT) Beta-2 Glycoprotein I Antibody IgG <9 0 - 20 GPI IgG units 12/12/2019 3:35 AM CDT [facility] ([facility]) Comment: The reference interval reflects a 3SD or 99th percentile interval, which is thought to represent a potentially clinically significant result in accordance with the International Consensus Statement on the classification criteria for definitive antiphospholipid syndrome (APS). J Thromb Haem 2006;4:295-306. Beta-2 Glycoprotein I Antibody IgM 9 0 - 32 GPI IgM units 12/12/2019 3:35 AM CDT [facility] Comment: The reference interval reflects a 3SD or 99th percentile interval, which is thought to represent a potentially clinically significant result in accordance with the International Consensus Statement on the classification criteria for definitive antiphospholipid syndrome (APS). J Thromb Haem 2006;4:295-306. Blood BLOOD SPECIMEN / Unknown Lab Venipuncture / Unknown 12/08/2019 11:34 AM CDT 12/08/2019 12:32 PM CDT Narrative [facility] ([facility]) - 12/12/2019 3:35 AM CDT Performed at: ??01 - [facility] ??[id number] Rol[employer] Utility Worker: Kiran Guerra MD, Phone: ??[phone] Christiano Pino MD LAB - CHEMISTRY MIRI GO [facility] ([facility]) [address] [place] [address] * LUPUS ANTICOAGULANT PANEL (12/08/2019 11:34 AM CDT) APTT 29.4 23.0 - 38.4 Seconds 12/11/2019 10:03 AM [facility] PT 12.3 12.1 - 14.8 Seconds 12/11/2019 10:03 AM [facility] INR 0.9 See Comment 12/11/2019 10:03 AM [facility] Buffer 41.1 Seconds 020 10:03 AM [facility] Phospholipid 38.7 Seconds 12/11/2019 10:03 AM [facility] Delta 2.4 <8.0 Seconds 12/11/2019 10:03 AM [facility] Interpretation [place] Negative 12/11/2019 10:03 AM [facility] Comment:Up to 15-20% of jhony ents with [...] Pino MD LAB - HEMATOLOGY ORD ERABLES [address] [address] [place] [phone] * (ABNORMAL) HEPATITIS SCREEN ACUTE (12/08/2019 11:34 AM CDT) HAV Antibody IgM Non Reactive Non Reactive 12/08/2019 1:48 PM CDT [facility] HBsAg Non Reactive Non Reactive 12/08/2019 1:48 PM CDT [facility] HBc Antibody IgM Non Reactive Non Reactive 12/08/2019 1:48 PM CDT [facility] HCV Antibody Screen REACTIVE(A) Non Reactive 12/08/2019 1:48 PM CDT [facility] Blood BLOOD SPECIMEN / Unknown Lab Venipuncture / Unknown 12/08/2019 11:34 AM CDT 12/08/2019 12:32 PM CDT Narrative [facility] - 12/08/2019 1:48 PM CDT A reactive result is consistent with current HCV infection or past HCV infection that has been resolved. Reflex testing to Hepatitis C Virus RNA Quantitative, Real Time PCR will be performed. See separate report. Christiano Pino MD LAB - CHEMISTRY ORDE DONAVAN [facility] [address] [place] [address] * MARQUITA BLOOD SCREEN W/REFLEX TITER (12/08/2019 11:34 AM CDT) MARQUITA Negative Negative 12/10/2019 10:30 AM CDT [facility] Blood BLOOD SPECIMEN / Unknown Lab Venipuncture / Unknown 12/08/2019 11:34 AM CDT 12/08/2019 12:31 PM CDT Narrative [facility] - 12/10/2019 10:30 AM CDT Methodology: Indirect Immunofluorescence Assay (IFA) utilizing Hep-2-Gamma cells. Christiano Pino MD LAB - CHEMISTRY MIRI GO Performing Organization Address City/[facility]/ZIP Co de Phone Number [facility] [address] [place] [address] * (ABNORMAL) VITAMIN B12 (12/08/2019 11:34 AM CDT) Vitamin B12 171(L) 213 - 816 pg/mL 12/08/2019 1:48 PM CDT [facility] Blood BLOOD SPECIMEN / Unknown Lab Venipuncture / Unknown 12/08/2019 11:34 AM CDT 12/08/2019 12:31 PM CDT Christiano Pino MD LAB - CHEMISTRY MIRI GO Performing Organization Address [facility] Co de Phone Number [facility] [address] [place] [phone] * PREPARE (CROSSMATCH) RBC UNIT(S), 2 Units (12/08/2019 11:30 AM CDT) Product Code [id number] [facility] Unit Donor # [id number] [facility] ABO Donor Type A [facility] Rh Type Unit POS [facility] Unit Status Transfd [facility] ABO Rh Type Unit APOS [facility] Donor Unit Expiration Date [facility] Blood Type Barcode [address] [facility] Product Code [id number] [facility] Unit Donor # [id number] [facility] ABO Donor Type A [facility] Rh Type Unit POS [facility] Unit Status Transfd [facility] ABO Rh Type Unit APOS [facility] Donor Unit Expiration Date [facility] Blood Type Barcode 6200 [facility] Blood Bank BLOOD SPECIMEN / Unknown 12/08/2019 11:30 AM CDT Chen Oneal MD LAB - BLOOD BANK ORD ERABLES [facility] [address] [phone] * (ABNORMAL) DRUG SCREEN TOX URINE PANEL (12/08/2019 7:50 AM CDT) Amphetamines Screen Urine Detected(A) Not detected 12/08/2019 8:46 AM CDT [facility] Barbiturates Screen Urine Not detected Not detected 12/08/2019 8:46 AM CDT [facility] Benzodiazepines Screen Urine Not detected Not detected 12/08/2019 8:46 AM CDT [facility] Cannabinoids Screen Urine Not detected Not detected 12/08/2019 8:46 AM CDT [facility] Cocaine Screen Urine Not detected Not detected 12/08/2019 8:46 AM CDT [facility] Fentanyl Urine Not detected Not detected 12/08/2019 8:46 AM CDT [facility] Methadone Screen Urine Not detected Not detected 12/08/2019 8:46 AM CDT [facility] Opiate Screen Urine Not detected Not detected 12/08/2019 8:46 AM CDT [facility] Phencyclidine Screen Urine Not detected Not detected 12/08/2019 8:46 AM CDT [facility] Urine URINE / Unknown Collection / Unknown 12/08/2019 7:50 AM CDT 12/08/2019 8:16 AM CDT Narrative [facility] - 12/08/2019 8:46 AM CDT This [...] ng/mL Pattie Castellon MD LAB - URINE NORMALIZER RY ORDERABLES Performing Organization Address [facility] de Phone Number [facility] [address] [place] [phone] * (ABNORMAL) RETIC COUNT (12/08/2019 7:03 AM CDT) Reticulocyte Count 1.72(H) 0.5 - 1.7 % 12/08/2019 9:16 AM CDT [facility] Reticulocyte Absolute 0.0530 0.0391 - 0.057 x10E6/uL 12/08/2019 9:16 AM CDT [facility] Reticulocyte Immature Fractionated 19.1(H) 9.3 - 17.4 % 12/08/2019 9:16 AM CDT [facility] Hemoglobin Retic 16.1(L) 30.6 - 40.7 pg 12/08/2019 9:16 AM CDT [facility] Blood BLOOD SPECIMEN / Unknown Lab Venipuncture / Unknown 12/08/2019 7:03 AM CDT 12/08/2019 7:48 AM CDT Christiano Pino MD LAB - HEMATOLOGY ORD ERABLES Performing Organization Address [facility] de Phone Number [facility] [address] [place] [phone] * TSH REFLEX FREE T4 (12/08/2019 7:03 AM CDT) TSH 0.826 0.350 - 4.940 uIU/mL 12/08/2019 11:02 AM CDT [facility] Blood BLOOD SPECIMEN / Unknown Lab Venipuncture / Unknown 12/08/2019 7:03 AM CDT 12/08/2019 7:48 AM CDT Christiano Pino MD LAB - CHEMISTRY ORDE RABMARTIN Performing Organization Address [facility] Co de Phone Number [facility] [address] [place] [address] * (ABNORMAL) FOLATE (12/08/2019 7:03 AM CDT) Pathologist [facility] Folate 6.8(L) 7.0 - 31.4 ng/mL 12/08/2019 11:02 AM CDT [facility] Blood BLOOD SPECIMEN / Unknown Lab Venipuncture / Unknown 12/08/2019 7:03 AM CDT 12/08/2019 7:48 AM CDT Christiano Pino MD LAB - CHEMISTRY MIRI GO Performing Organization Address [facility]/ZIP Co de Phone Number [facility] [address] [place] [address] * HEPATITIS B SURFACE ANTIGEN W RFLX CONFIRMATION (12/08/2019 7:03 AM CDT) [facility] HBsAg Non Reactive Non Reactive 12/08/2019 10:59 AM CDT [facility] Blood BLOOD SPECIMEN / Unknown Lab Venipuncture / Unknown 12/08/2019 7:03 AM CDT 12/08/2019 8:17 AM CDT Asuncion Aparicio MD LAB - CHEMISTRY MIRI GO Performing Organization Address [facility] Co de Phone Number [facility] [address] [place] [address] * RUBELLA ANTIBODY IGM TITER (12/08/2019 7:03 AM CDT) [facility] Rubella Antibody IgM <20.0 0.0 - 19.9 AU/mL 12/10/2019 8:08 AM CDT [facility] ([facility]) Comment: ? Negative ?<20.0 ? Equivocal ? 20.0 - 24.9 ? Positive ?>24.9 Blood BLOOD SPECIMEN / Unknown Lab Venipuncture / Unknown 12/08/2019 7:03 AM CDT 12/08/2019 8:17 AM CDT Narrative [facility] ([facility]) - 12/10/2019 8:08 AM CDT Performed at: ??01 - [facility] [address] [place], [place] ??[id number] [employer] Utility Worker: Tyrone Rider PhD, Phone: ??[phone] Asuncion Aparicio MD LAB - SEROLOGY ORDER CRUZITO [facility] ([facility]) [address] [place] [address] * (ABNORMAL) CYTOMEGALOVIRUS ANTIBODY IGG/IGM BLOOD (12/08/2019 7:03 AM CDT) Cytomegalovirus Antibody IgG 5.40(H) 0.00 - 0.59 U/mL 12/10/2019 8:08 AM CDT [facility] ([facility]) Comment: ? Negative ?<0.60 ? Equivocal ?? 0.60 - 0.69 ? Positive ?>0.69 Cytomegalovirus Antibody IgM <30.0 0.0 - 29.9 AU/mL 12/10/2019 8:08 AM CDT [facility] ([facility]) Comment: ?Negative ? <30.0 ?Equivocal ??30.0 - 34.9 ?Positive ? >34.9 A positive result is generally indicative of acute infection, reactivation or persistent IgM production. Blood BLOOD SPECIMEN / Unknown Lab Venipuncture / Unknown 12/08/2019 7:03 AM CDT 12/08/2019 7:48 AM CDT Narrative [facility] ([facility]) - 12/10/2019 8:08 AM CDT Performed at: ??01 - [address] ??[id number] [employer] Utility Worker: Tyrone Rider PhD, Phone: ??[phone] Pattie Castellon MD LAB - CHEMISTRY ORD ERABLES Performing Organization Address [facility] de Phone Number [facility] ([facility]) [address] [place] [address] * HAPTOGLOBIN (12/08/2019 7:03 AM CDT) Haptoglobin 118 30 - 200 mg/dL 12/08/2019 8:11 AM CDT [facility] Blood BLOOD SPECIMEN / Unknown Lab Venipuncture / Unknown 12/08/2019 7:03 AM CDT 12/08/2019 7:48 AM CDT Pattie Castellon MD LAB - CHEMISTRY ORD ERABLES Performing Organization Address City/[facility] Co de Phone Number [facility] [address] [place] [address] * (ABNORMAL) LDH BLOOD (12/08/2019 7:03 AM CDT) LDH 226(H) 125 - 220 U/L 12/08/2019 8:11 AM CDT [facility] Blood BLOOD SPECIMEN / Unknown Lab Venipuncture / Unknown 12/08/2019 7:03 AM CDT 12/08/2019 7:48 AM CDT Pattie Castellon MD LAB - CHEMISTRY ORD ERABLES [facility] [address] [place] [address] * (ABNORMAL) COMPREHENSIVE METABOLIC PANEL (12/08/2019 7:03 AM CDT) Glucose 76 70 - 105 mg/dL 12/08/2019 8:11 AM CDT [facility] Sodium 135(L) 136 - 145 mmol/L 12/08/2019 8:11 AM CDT [facility] Potassium 3.8 3.5 - 5.1 mmol/L 12/08/2019 8:11 AM CDT [facility] Chloride 109(H) 98 - 107 mmol/L 12/08/2019 8:11 AM CDT [facility] CO2 20(L) 23 - 31 mmol/L 12/08/2019 8:11 AM CDT [facility] Calcium 7.7(L) 8.4 - 10.4 mg/dL 12/08/2019 8:11 AM CDT [facility] Anion Gap 6(L) 8 - 16 mmol/L 12/08/2019 8:11 AM CDT [facility] BUN 8 7 - 18.7 mg/dL 12/08/2019 8:11 AM CDT [facility] Creatinine 0.60 0.57 - 1.11 mg/dL 12/08/2019 8:11 AM CDT [facility] Alkaline Phosphatase 70 40 - 150 U/L 12/08/2019 8:11 AM CDT [facility] ALT 52 0 - 61 U/L 12/08/2019 8:11 AM CDT [facility] AST 39(H) 5 - 34 U/L 12/08/2019 8:11 AM CDT [facility] Protein Total 6.1(L) 6.4 - 8.3 gm/dL 12/08/2019 8:11 AM CDT [facility] Albumin 2.9(L) 3.5 - 5.2 gm/dL 12/08/2019 8:11 AM CDT [facility] Bilirubin Total 0.2 0.2 - 1.0 mg/dL 12/08/2019 8:11 AM CDT [facility] eGFR by MDRD >60 >60 mL/min/1.7 3m2 12/08/2019 8:11 AM CDT [facility] eGFR by MDRD >60 >60 mL/min/1.7 3m2 12/08/2019 8:11 AM CDT [facility] Blood BLOOD SPECIMEN / Unknown Lab Venipuncture / Unknown 12/08/2019 7:03 AM CDT 12/08/2019 7:48 AM CDT Pattie Castellon MD LAB - CHEMISTRY ORD ERABLES Performing Organization Address [facility] Co de Phone Number [facility] [address] [place] [phone] * FIBRINOGEN ACTIVITY (12/08/2019 7:03 AM CDT) Pathologist [facility] Fibrinogen 319 200 - 400 mg/dL 12/08/2019 8:05 AM CDT [facility] Blood BLOOD SPECIMEN / Unknown Lab Venipuncture / Unknown 12/08/2019 7:03 AM CDT 12/08/2019 7:48 AM CDT Pattie Castellon MD LAB - COAGULATION O RDERABLES Performing Organization Address [facility] de Phone Number [facility] [address] [place] [address] * HEMOGLOBIN ELECTROPHORESIS (12/08/2019 7:03 AM CDT) Hemoglobin A1 98.3 97.1 - 99.1 % 12/12/2019 10:19 AM CDT [facility] Hemoglobin F 0.0 0.0 - 2.0 % 12/12/2019 10:19 AM CDT [facility] Hemoglobin S 0.0 <=0.0 % 12/12/2019 10:19 AM CDT [facility] Hemoglobin C 0.0 <=0.0 % 12/12/2019 10:19 AM CDT [facility] Hemoglobin A2 1.7 0.9 - 2.9 % 12/12/2019 10:19 AM CDT [facility] Hemoglobin E 0.0 % 12/12/2019 10:19 AM CDT [facility] Interpretation Normal Interpretation 12/12/2019 10:19 AM CDT [facility] Blood BLOOD SPECIMEN / Unknown Lab Venipuncture / Unknown 12/08/2019 7:03 AM CDT 12/08/2019 7:48 AM CDT Pattie Castellon MD LAB - CHEMISTRY ORD ERABLES Performing Organization Address City/[facility]/ZIP Co de Phone Number [facility] [address] [place] [phone] * (ABNORMAL) FERRITIN (12/08/2019 7:03 AM CDT) Ferritin 2(L) 5 - 204 ng/mL 12/08/2019 8:31 AM CDT [facility] Blood BLOOD SPECIMEN / Unknown Lab Venipuncture / Unknown 12/08/2019 7:03 AM CDT 12/08/2019 7:48 AM CDT Pattie Castellon MD LAB - CHEMISTRY ORD ERABLES Performing Organization Address [facility] Co de Phone Number [facility] [address] [place] [phone] * (ABNORMAL) IRON + TRANSFERRIN PANEL (12/08/2019 7:03 AM CDT) Iron 15(L) 50 - 170 ug/dL 12/08/2019 8:11 AM CDT [facility] Transferrin 472(H) 180 - 382 mg/dL 12/08/2019 8:11 AM CDT [facility] TIBC Calculated 590(H) 240 - 450 ug/ml 12/08/2019 8:11 AM CDT [facility] Iron Saturation % 3(L) 20 - 50 % 12/08/2019 8:11 AM CDT [facility] Blood BLOOD SPECIMEN / Unknown Lab Venipuncture / Unknown 12/08/2019 7:03 AM CDT 12/08/2019 7:48 AM CDT Pattie Castellon MD LAB - CHEMISTRY ORD ERABLES Performing Organization Address City/[facility]/ZIP Co de Phone Number [facility] [address] [place] [address] * HEPATITIS C RNA QUANTITATIVE (12/08/2019 7:03 AM CDT) [facility] Hepatitis C Virus Quantitation [id number] IU/mL 12/19/2019 6:08 AM CDT [facility] ([facility]) Hepatitis C Virus Log 10 6.217 log10 IU/mL 12/19/2019 6:08 AM CDT [facility] ([facility]) Test Information Comment 12/19/19 6:08 AM CDT [facility] ([facility]) Comment:The quantitative ran ge of this assay is 15 IU/mL to 100 million IU/mL. Blood BLOOD SPECIMEN / Unknown Lab Venipuncture / Unknown 12/08/2019 7:03 AM CDT 12/08/2019 7:48 AM CDT Narrative [facility] ([facility]) - 12/19/2019 6:08 AM CDT Performed at: ??01 - [address] ??[id number] [employer] Utility Worker: Kiran Guerra MD, Phone: ??[phone] Pattie Castellon MD LAB - CHEMISTRY ORD ERABLES [facility] ([facility]) [address] [place] [address] * PREPARE (CROSSMATCH) RBC UNIT(S), 2 Units (12/08/2019 4:15 AM CDT) Pathologist [facility] Product Code [id number] [facility] Unit Donor # [id number] [facility] ABO Donor Type A [facility] Rh Type Unit POS [facility] Unit Status Ret'd [facility] ABO Rh Type Unit APOS [facility] Donor Unit Expiration Date [facility] Blood Type Barcode 6200 [facility] Product Code [id number] [facility] Unit Donor [facility] [id number] [facility] ABO Donor Type A [facility] Rh Type Unit POS [facility] Unit Status Ret'd [facility] ABO Rh Type Unit APOS [facility] Donor Unit Expiration Date [facility] Blood Type Barcode 6200 [facility] Blood Bank BLOOD SPECIMEN / Unknown 12/08/2019 4:15 AM CDT Ron Quinn MD LAB - BLOOD BANK ORD ERABLES Performing Organization Address [facility]/ZIP Co de Phone Number [facility] [address] [place] [address] * BLOOD TYPE VERIFICATION (12/08/2019 3:01 AM CDT) Pathologist [facility] ABO A 12/08/2019 3:28 AM CDT [facility] Rh Type Positive 12/08/2019 3:28 AM CDT [facility] Blood Bank BLOOD SPECIMEN / Unknown Lab Venipuncture / Unknown 12/08/2019 3:01 AM CDT 12/08/2019 3:06 AM CDT Asuncion Aparicio MD LAB - BLOOD BANK ORD ERABLES Performing Organization Address [facility] Co de Phone Number [facility] [address] [place] [address] * (ABNORMAL) SLIDE SCAN HEMATOLOGY (12/08/2019 2:24 AM CDT) Pathologist [facility] Platelet Estimation Decreased (A) Normal, Adequate platelets 12/08/2019 4:17 AM CDT [facility] Large Platelets 2+(A) None 12/08/2019 4:17 AM CDT [facility] Blood BLOOD SPECIMEN / Unknown Venipuncture / Unknown 12/08/2019 2:24 AM CDT 12/08/2019 2:28 AM CDT Ron Quinn MD LAB - HEMATOLOGY ORD ERABLES Performing Organization Address City/[facility]/ZIP Co de Phone Number [facility] [address] [place] [address] * (ABNORMAL) CBC W AUTO DIFFERENTIAL (12/08/2019 2:24 AM CDT) WBC 9.8 4.4 - 10.7 x10E9/L 12/08/2019 2:45 AM CDT [facility] WBC Corrected 12/08/2019 2:45 AM CDT [facility] RBC 3.02(L) 3.80 - 5.20 x10E12/L 12/08/2019 2:45 AM CDT [facility] Hemoglobin 5.2(LL) 12.0 - 15.6 gm/dL 12/08/2019 2:45 AM CDT [facility] Hematocrit 19.5(LL) 35.9 - 45.5 % 12/08/2019 2:45 AM CDT [facility] MCV 64.6(L) 80.7 - 98.3 fl 12/08/2019 2:45 AM CDT [facility] MCH 17.2(L) 26.7 - 34.0 pg 12/08/2019 2:45 AM CDT [facility] MCHC 26.7(L) 30.8 - 35.9 gm/dL 12/08/2019 2:45 AM CDT [facility] Platelet Count 59(L) 153 - 416 x10E9/L 12/08/2019 2:[facility] RDW-CV 19.2(H) 12.1 - 14.9 % 12/08/2019 2:45 AM CDT [facility] Neutrophils % 70.3 44.0 - 73.0 % 12/08/2019 2:45 [address] [facility] Lymphocytes % 18.8(L) 20.0 - 43.0 % 12/08/2019 2:45 AM CDT [facility] Monocytes % 6.7 5.0 - 13.0 % 12/08/2019 2:45 AM CDT [facility] Eosinophils % 3.0 0.0 - 6.0 % 12/08/2019 2:45 AM CDT [facility] Basophils % 0.4 0.0 - 2.0 % 12/08/2019 2:45 AM CDT [facility] Immature Granulocytes 0.8 0 - 1 % 12/08/2019 2:45 AM CDT [facility] Neutrophil Absolute 6.88 2.01 - 7.14 x10E9/L 12/08/2019 2:45 AM CDT [facility] Lymphocytes Absolute 1.84 1.07 - 3.94 x10E9/L 12/08/2019 2:45 AM CDT [facility] Monocytes Absolute 0.66 0.26 - 1.07 x10E9/L 12/08/2019 2:45 AM CDT [facility] Eosinophils Absolute 0.29 0 - 0.47 x10E9/L 12/08/2019 2:45 AM CDT [facility] Basophils Absolute 0.04 0 - 0.08 x10E9/L 12/08/2019 2:45 AM CDT [facility] Immature Granulocytes Absolute 0.08(H) 0.00 - 0.06 x10E9/L 12/08/2019 2:45 AM CDT [facility] nRBC Auto 0 /100 WBC 12/08/2019 2:45 AM CDT [facility] Blood BLOOD SPECIMEN / Unknown Venipuncture / Unknown 12/08/2019 2:24 AM CDT 12/08/2019 2:28 AM CDT Ron Quinn MD LAB - HEMATOLOGY ORD ERABLES [facility] [address] [place] [address] * TYPE + SCREEN PANEL (12/08/2019 2:24 AM CDT) ABO A 12/08/2019 3:22 AM CDT [facility] Rh Type Positive 12/08/2019 3:22 AM CDT [facility] Comment:History checked. Col lect retype. Antibody Screen Negative 12/08/2019 3:22 AM CDT [facility] Blood Bank BLOOD SPECIMEN / Unknown Lab Venipuncture / Unknown 12/08/2019 2:24 AM CDT 12/08/2019 2:28 AM CDT Pattie Castellon MD LAB - BLOOD BANK OR DERABLES [facility] [address] [phone] documented in this encounter Visit Diagnoses Diagnosis [...] Given 12/08/2019 6:16 AM CDT 3 mL spugcrzsdd-gzguyhjrfmhuz-fqs feine (FIORICET) 50-325-40 MG tablet 1 tablet [...] over 24 Hours, DAILY, First dose on [facility] 12/08/19 at 0900, Until Discontinued, Remove old [...] Given - Provider: Geri Harding RN)1400 (Due) fyattcbypd-gacaorxoanelz-rq ffeine (FIORICET) 50-325-40 MG tablet 1 tablet [...] prochlorperazine. documented in this encounter Care Teams Supervisor Composing Room Relationship Specialty Start Date End Date Alejandro Blevins MD [address] [place] [address] PCP - General Family Medicine 12/07/19 documented as of this encounter
--- OUTSIDE RECORDS SUMMARY | 2024-07-11 09:49 | XMS_ITS | Encounter Summary ---
Author Organization [facility] Address [address] [place] [address] Care Team Providers Care Professional Soccer Player Name Role Phone Alejandro Blevins MD Primary Care Provider [phone] Reason for Visit * Reason Comments Initial Visit * Evaluate & Treat (Routine) - Closed Specialty Diagnoses / Procedures Referred By Scarlet guzman Referred To Contact Maternal Medicine Diagnoses Supervision of other high risk pregnancies, unspecified trimester (HCC) Anemia complicating , unspecified trimester (HCC) Unspecified viral hepatitis C without hepatic coma Procedures MD FULL ROUT OBSTE CARE,VAGINAL Walter George MD [address] [place] [address] [facility] [address] [place] [address] Referral ID Status Reason Start Date Expiration Date Visits Re quested Visits Authorized [id number] Closed 12/19/2019 06/16/2020 18 18 Encounter Details Date Type Department Care Team (Latest Contact Info) Description 12/19/2019 11:22 AM CDT - 12/19/2019 11:59 PM CDT Hospital Encounter [facility] MATERNAL/ EVALUATION UNIT [address] [place] [address] Ino Soares MD [address] [facility] [address] [place] [address] Discharge Disposition: Home or Self Care Social [...] yourself. Care for your baby Important Vaccines [address] is Important Resources for Mom's Woman and Resource Guide Safe Connections Crisis helpline Verification of letter Dental Referral letter Dental Clinic's list Centering brochure [place] Manage Care Transportation Services Sheet [facility] [place] offices FMLA Request Process Handout * [...] as hematology/oncology consultation. She has followed a demand planner Dr. Dick Noel and chief librarian circulation department Dr. Jain for an unknown hematologic disorder [...] input(s): PROTEINUA, GLUCOSEUA, KETONEUA in the last [id number] hours. labs reviewed Blood type: A+/unknown/Hepatitis B [...] to 72.1 She has followed with a demand planner Dr. Dick Noel in the past Per pt, she has always had low platelets, but is not sure of the diagnosis. Never remembers having a low Hgb, and has never had a blood transfusion. Denies any bleeding. Gums do bleed when she brushes her teeth. Additionally, has had bone marrow biopsy with demand planner around 6 years ago, and was told no need to follow up Broad differential, including chronic hepatitis C, severe iron deficiency, nutritional deficiency, drug induced, autoimmune. Rheumatic a possibility with elevated anticardiolipin antibody, though MARQUITA is negative Pt saw new demand planner yesterday Dr. Alex in [facility]. Plan for weekly venofer transfusions and IM B12 injections, plan for follow up demand planner visit in 5 weeks after conclusion of [...] mild transaminitis at [facility] 2018 quant was [id number], now [id number] Has followed with chief librarian circulation department, Dr. Jain, in the past. Diagnosed in [...] 4 weeks for MD visit, return to [facility] every 2 weeks for cervical lengths Plan [...] Reactive Non Reactive 12/19/2019 4:25 PM CDT [facility] Blood BLOOD SPECIMEN / Unknown Venipuncture / Unknown 12/19/2019 3:22 PM CDT 12/19/2019 3:40 PM CDT Narrative [facility] - 12/19/2019 4:25 PM CDT No Laboratory evidence of HIV infection. Phuong Quinones MD LAB - CHEMISTRY MIRI GO Performing Organization Address City/[facility]/ZIP Co de Phone Number [facility] [address] [place] [phone] * RPR W REFLEX TO TITER (MONITOR) (12/19/2019 3:22 PM CDT) RPR Monitor Nonreactive Nonreactive 12/20/2019 7:32 AM CDT [facility] Blood BLOOD SPECIMEN / Unknown Venipuncture / Unknown 12/19/2019 3:22 PM CDT 12/19/2019 3:40 PM CDT Phuong Quinones MD LAB - CHEMISTRY MIRI GO Performing Organization Address City/[facility]/ZIP Co de Phone Number [facility] [address] [place] [address] documented in this encounter Visit Diagnoses Diagnosis Dichorionic diamniotic twin in second trimester (HCC)- Primary Twin , antepartum documented in this encounter Care Teams Professional Soccer Player Relationship Specialty Start Date End Date Alejandro Blevins MD [address] [place] [phone] PCP - General Family Medicine 12/07/19 documented as of this encounter
--- OUTSIDE RECORDS SUMMARY | 2024-07-11 09:49 | XMS_ITS | Encounter Summary ---
Author Organization [facility] Address [address] [place] [address] Care Team Providers Care Charge Manager Name Role Phone Alejandro Blevins MD Primary Care Provider [phone] Encounter Details Date Type Department Care Team [...] on filedocumented in this encounter Care Teams Charge Manager Relationship Specialty Start Date End Date Alejandro Blevins MD [address] [place] [phone] PCP - General Family Medicine 12/07/19 documented as of this encounter
--- OUTSIDE RECORDS SUMMARY | 2024-07-11 09:49 | XMS_ITS | Encounter Summary ---
Author Organization [facility] Address [address] [place] [address] Care Team Providers Care Bartacker Name Role Phone Alejandro Blevins MD Primary Care Provider [phone] Encounter Details Date Type Department Care Team [...] on filedocumented in this encounter Care Teams Bartacker Relationship Specialty Start Date End Date Alejandro Blevins MD [address] [place] [phone] PCP - General Family Medicine 12/07/19 documented as of this encounter
--- OUTSIDE RECORDS SUMMARY | 2024-07-11 09:49 | XMS_ITS | Encounter Summary ---
Author Organization [facility] Address [address] [place] [address] Care Team Providers Care Melter Clerk Name Role Phone Alejandro Blevins MD Primary Care Provider [phone] Encounter Details Date Type Department Care Team [...] on filedocumented in this encounter Care Teams Melter Clerk Relationship Specialty Start Date End Date Alejandro Blevins MD [address] [place] [phone] PCP - General Family Medicine 12/07/19 documented as of this encounter
--- OUTSIDE RECORDS SUMMARY | 2024-07-11 09:50 | XMS_ITS | Encounter Summary ---
Author Organization [facility] Address [facility] [place] [address] [place] [address] Care Team Providers Care Medical Office Representative Name Role Phone Alejandro Blevins MD Primary Care Provider [phone] Encounter Details Date Type Department Care Team (Latest Contact Info) Description 03/06/2024 3:50 PM CDT - 03/06/2024 11:59 PM CDT Hospital Encounter [address] [place] [address] Roberta Alex MD [address] [place] [address] Discharge Disposition: Home or Self Care (Routine Discharge) Social History Tobacco Use Types Packs/Day Years Used Date Smoking Tobacco: Every Day Cigarettes Smokeless Tobacco: Never Alcohol Use Standard Drinks/Week Comments Not Currently 0 (1 standard drink = 0.6 oz pur e alcohol) Comments No Sex and Gender Information Value Date Recorded Sex Assigned at Not on file Legal Sex Female 11:30 PM BULB ASSEMBLER Gender Identity Female 11/10/2021 3:09 PM CDT Sexual Orientation Straight 11/10/2021 3: 09 PM CDT documented as of this encounter Functional Status * RETIRED Are you deaf or do you have serious difficulty hearing Answer Date of Assessment Author Status No 07/30/2020 10:48 PM BULB ASSEMBLER Acti ve * RETIRED Are you blind or do you have serious difficulty seeing, even when wearing glasses? Answer Date of Assessment Author Status No 07/30/2020 10:46 PM BULB ASSEMBLER Acti ve * Do you have serious [...] st Contact Info) Description 09/25/2024 11:30 AM BULB ASSEMBLER Appointment [facility] [address] [place] [address] Roberta Alex MD [address] [place] [address] 09/25/2024 11:40 AM BULB ASSEMBLER Office Visit [facility] [address] [place] [address] Roberta Alex MD [address] [place], [place] [address] documented as of this encounter Procedures Procedure Name Priority Date/Time Associated Diagnosis Comments CBC W/DIFF AUTOMATED Routine 03/06/2024 3:59 PM CDT Acute ITP (CMS/HCC HHS/HCC) documented in this encounter Results * (ABNORMAL) CBC W/DIFF AUTOMATED (03/06/2024 3:59 PM CDT) WBC 9.49 4.00 - 10.80 x10'3/uL 03/06/2024 4:21 PM CDT [facility] RBC 4.94 4.10 - 5.40 x10'6/uL 03/06/2024 4:21 PM CDT [facility] HGB 13.9 12.0 - 16.0 G/DL 03/06/2024 4:21 PM CDT [facility] HCT 42.8 36.0 - 47.0 % 03/06/2024 4:21 PM CDT [facility] MCV 86.6 78.0 - 100.0 FL 03/06/2024 4:21 PM CDT [facility] MCH 28.1 27.0 - 31.0 PG 03/06/2024 4:21 PM CDT [facility] MCHC 32.5(L) 33.0 - 36.0 G/DL 03/06/2024 4:21 PM CDT [facility] RDW 13.0 11.5 - 14.5 % 03/06/2024 4:21 PM CDT [facility] PLT 34(L) 150 - 350 x10'3/uL 03/06/2024 4:21 PM CDT [facility] MPV RESULTS NOT AVAILABLE 7.4 - 10.4 FL 03/06/2024 4:21 PM CDT [facility] CBC COMMENT NORMAL REFERENCE RANGE NOT ESTABLISHED FOR THE PROPORTIONAL LEUKOCYTE DIFFERENTIAL. 03/06/2024 4:21 PM CDT [facility] NEUTROPHILS % 69.4 % 03/06/2024 4:30 PM CDT [facility] LYMPHOCYTES % 20.9 % 03/06/2024 4:30 PM CDT [facility] MONOCYTES % 4.3 % 03/06/2024 4:30 PM CDT [facility] EOSINOPHILS % 4.1 % 03/06/2024 4:30 PM CDT [facility] BASOPHILS % 1.1 % 03/06/2024 4:30 PM CDT [facility] IMMATURE GRANS % 0.2 % 03/06/20 4:30 PM CDT [facility] NRBC 0.0 % 03/06/2024 4:30 PM CDT [facility] ABS. NEUTROPHILS 6.59 1.60 - 8.30 x10'3/uL 03/06/2024 4:30 PM CDT [facility] ABS. LYMPHOCYTES 1.98 0.80 - 4.70 x10'3/uL 03/06/2024 4:30 PM CDT [facility] ABS. MONOCYTES 0.41 0.00 - 1.50 x10'3/uL 03/06/2024 4:30 PM CDT [facility] ABS. EOSINOPHILS 0.39 0.00 - 0.40 x10'3/uL 03/06/2024 4:30 PM CDT [facility] ABS. BASOPHILS 0.10 0.00 - 0.20 x10'3/uL 03/06/2024 4:30 PM CDT [facility] ABS. IMMATURE GRANULOCYTES 0.02 0.00 - 0.03 x10'3/uL 03/06/2024 4:30 PM CDT [facility] ABS. NUCLEATED RBC'S 0.00 0.00 - 0.01 x10'3/uL 03/06/2024 4:30 PM CDT [facility] PLT MORPH. DECREASED 03/06/2024 4:30 PM CDT [facility] RBC MORPHOLOGY 1+ 03/06/2024 4:30 PM CDT [facility] Comment: ANISOCYTOSIS 1+ POIKILOCYTOSIS 1+ MICROCYTES 03/06/2024 3:59 PM CDT us Roberta Alex MD LABORATORY Final Result [facility] [address] [place] [address], documented in this encounter Visit Diagnoses Diagnosis Acute ITP ([facility]/HCC [facility]/HCC) Immune thrombocytopenic purpura documented in this encounter Additional Health Concerns Infection Onset Date Last Indicated Resolved Time MRSA 06/05/2021 06/05/2021 documented as of this encounter Care Teams Medical Office Representative Relationship Specialty Start Date End Date Alejandro Blevins MD PCP - General FAMILY PRACTICE 12/10/19 documented as of this encounter
--- OUTSIDE RECORDS SUMMARY | 2024-07-11 09:50 | XMS_ITS | Encounter Summary ---
Author Organization [facility] Address [facility] [place] [address] [place] [address] Care Team Providers Care Vacuum Closing Machine Operator Name Role Phone Alejandro Blevins MD Primary Care Provider Encounter Details Date Type Department Care Team (Latest Contact Info) Description 11/25/2023 1:24 PM CDT - 11/25/2023 11:59 PM CDT Hospital Encounter [address] [place] [address] Roberta Alex MD [address] [place] [address] Discharge Disposition: Home or Self Care (Routine Discharge) Social History Tobacco Use Types Packs/Day Years Used Date Smoking Tobacco: Every Day Cigarettes Smokeless Tobacco: Never Alcohol Use Standard Drinks/Week Comments Not Currently 0 (1 standard drink = 0.6 oz pur e alcohol) Comments No Sex and Gender Information Value Date Recorded Sex Assigned at Not on file Legal Sex Female 11:30 PM FLAKE CUTTER OPERATOR Gender Identity Female 11/10/2021 3:09 PM CDT Sexual Orientation Straight 11/10/2021 3: 09 PM CDT documented as of this encounter Functional Status * RETIRED Are you deaf or do you have serious difficulty hearing Answer Date of Assessment Author Status No 07/30/2020 10:48 PM FLAKE CUTTER OPERATOR Acti ve * RETIRED Are you blind or do you have serious difficulty seeing, even when wearing glasses? Answer Date of Assessment Author Status No 07/30/2020 10:46 PM FLAKE CUTTER OPERATOR Acti ve * Do you have [...] st Contact Info) Description 09/25/2024 11:30 AM FLAKE CUTTER OPERATOR Appointment [facility] [address] [place] [address] Roberta Alex MD [address] [place] [address] 09/25/2024 11:40 AM FLAKE CUTTER OPERATOR Office Visit [facility] [address] [address] Roberta Alex MD [address] [place], [place] [address] documented as of this encounter Procedures Procedure Name Priority Date/Time Associated Diagnosis Comments CBC W/DIFF AUTOMATED Routine 11/25/2023 1:41 PM CDT Iron deficiency anemia due to chronic blood loss documented in this encounter Results * (ABNORMAL) CBC W/DIFF AUTOMATED (11/25/2023 1:41 PM CDT) WBC 9.36 4.00 - 10.80 x10'3/uL 11/25/2023 1:54 PM CDT [facility] RBC 4.44 4.10 - 5.40 x10'6/uL 11/25/2023 1:54 PM CDT [facility] HGB 12.5 12.0 - 16.0 G/DL 11/25/2023 1:54 PM CDT [facility] HCT 39.4 36.0 - 47.0 % 11/25/2023 1:54 PM CDT [facility] MCV 88.7 78.0 - 100.0 FL 11/25/2023 1:54 PM CDT [facility] MCH 28.2 27.0 - 31.0 PG 11/25/2023 1:54 PM CDT [facility] MCHC 31.7(L) 33.0 - 36.0 G/DL 11/25/2023 1:54 PM CDT [facility] RDW 13.0 11.5 - 14.5 % 11/25/2023 1:54 PM CDT [facility] PLT 148(L) 150 - 350 x10'3/uL 11/25/2023 1:54 PM CDT [facility] MPV 14.1(H) 7.4 - 10.4 FL 11/25/2023 1:54 PM CDT [facility] CBC COMMENT NORMAL REFERENCE RANGE NOT ESTABLISHED FOR THE PROPORTIONAL LEUKOCYTE DIFFERENTIAL. 11/25/2023 1:54 PM CDT [facility] NEUTROPHILS % 65.9 % 11/25/2023 1:54 PM CDT [facility] LYMPHOCYTES % 17.4 % 11/25/2023 1:54 PM CDT [facility] MONOCYTES % 6.2 % 11/25/2023 1:54 PM CDT [facility] EOSINOPHILS % 9.7 % 11/25/2023 1:54 PM CDT [facility] BASOPHILS % 0.6 % 11/25/2023 1:54 PM CDT [facility] IMMATURE GRANS % 0.2 % 11/25/19 1:54 PM CDT [facility] NRBC 0.0 % 11/25/2023 1:54 PM CDT [facility] ABS. NEUTROPHILS 6.16 1.60 - 8.30 x10'3/uL 11/25/2023 1:54 PM CDT [facility] ABS. LYMPHOCYTES 1.63 0.80 - 4.70 x10'3/uL 11/25/2023 1:54 PM CDT [facility] ABS. MONOCYTES 0.58 0.00 - 1.50 x10'3/uL 11/25/2023 1:54 PM CDT [facility] ABS. EOSINOPHILS 0.91(H) 0.00 - 0.40 x10'3/uL 11/25/2023 1:54 PM CDT [facility] ABS. BASOPHILS 0.06 0.00 - 0.20 x10'3/uL 11/25/2023 1:54 PM CDT [facility] ABS. IMMATURE GRANULOCYTES 0.02 0.00 - 0.03 x10'3/uL 11/25/2023 1:54 PM CDT [facility] ABS. NUCLEATED RBC'S 0.00 0.00 x10'3/uL 11/25/2023 1:54 PM CDT [facility] 11/25/2023 1:41 PM CDT us Roberta Alex MD LABORATORY Final Result [facility] [address] [place] [address], documented in this encounter Visit Diagnoses Diagnosis Iron deficiency anemia due to chronic blood loss Iron deficiency anemia secondary to blood loss (chronic) documented in this encounter Additional Health Concerns Infection Onset Date Last Indicated Resolved Time MRSA 06/05/2021 06/05/2021 documented as of this encounter Care Teams Vacuum Closing Machine Operator Relationship Specialty Start Date End Date Alejandro Blevins MD PCP - General FAMILY PRACTICE 12/10/19 documented as of this encounter
--- OUTSIDE RECORDS SUMMARY | 2024-07-11 09:50 | XMS_ITS | Encounter Summary ---
Author Organization [facility] Address [facility] [place] [address] [place] [address] Care Team Providers Care Char Belt Operator Name Role Phone Alejandro Blevins MD Primary Care Provider [phone] Encounter Details Date Type Department Care Team (Late st Contact Info) Description 03/19/2024 Orders Only [address] [place] [address] Roberta Aelx MD [address] [place] [address] Social History Tobacco Use Types Packs/Day Years Used Date Smoking Tobacco: Every Day Cigarettes Smokeless Tobacco: Never Alcohol Use Standard Drinks/Week Comments Not Currently 0 (1 standard drink = 0.6 oz pur e alcohol) Comments No Sex and Gender Information Value Date Recorded Sex Assigned at Not on file Legal Sex Female 11:30 PM DAIRY FARM OPERATOR Gender Identity Female 11/10/2021 3:09 PM CDT Sexual Orientation Straight 11/10/2021 3: 09 PM CDT documented as of this encounter Functional Status * RETIRED Are you deaf or do you have serious difficulty hearing Answer Date of Assessment Author Status No 07/30/2020 10:48 PM DAIRY FARM OPERATOR Acti ve * RETIRED Are you blind or do you have serious difficulty seeing, even when wearing glasses? Answer Date of Assessment Author Status No 07/30/2020 10:46 PM DAIRY FARM OPERATOR Acti ve * Do you have serious difficulty walking or climbing stairs? Answer Date of Assessment Author Status No 07/30/2020 10:46 PM DAIRY FARM OPERATOR Bringuet, Nella C, RN Active * Do you have difficulty dressing or bathing? Answer Date of Assessment Author Status No 07/30/2020 10:46 PM DAIRY FARM OPERATOR Nella Le RN Active * Because [...] st Contact Info) Description 09/25/2024 11:30 AM DAIRY FARM OPERATOR Appointment [facility] [address] [place] [address] Roberta Alex MD [address] [place] [address] 09/25/2024 11:40 AM DAIRY FARM OPERATOR Office Visit [facility] [address] [place] [address] Roberta Alex MD [address] [place] [address] Scheduled Orders Name Type Priority Associated Diagnoses Orde r Schedule CBC W/DIFF AUTOMATED Lab Routine Thrombocytopenia Every 4 Weeks for 6 Occurrences starting 03/19/2024 until 03/19/2025, 1 completed documented as of this encounter Results * (ABNORMAL) CBC W/DIFF AUTOMATED (06/19/2024 10:40 AM DAIRY FARM OPERATOR) WBC 8.99 4.00 - 10.80 x10'3/uL 06/19/2024 10:55 AM DAIRY FARM OPERATOR [facility] RBC 4.87 4.10 - 5.40 x10'6/uL 06/19/2024 10:55 AM DAIRY FARM OPERATOR [facility] HGB 14.1 12.0 - 16.0 G/DL 06/19/2024 10:55 AM [facility] HCT 43.5 36.0 - 47.0 % 06/19/2024 10:55 AM [facility] MCV 89.3 78.0 - 100.0 FL 06/19/2024 10:55 AM [facility] MCH 29.0 27.0 - 31.0 PG 06/19/2024 10:55 AM [facility] MCHC 32.4(L) 33.0 - 36.0 G/DL 06/19/2024 10:55 AM [facility] RDW 13.9 11.5 - 14.5 % 06/19/2024 10:55 AM [facility] PLT 197 150 - 350 x10'3/uL 06/19/2024 10:55 AM [facility] MPV 13.0(H) 7.4 - 10.4 FL 06/19/2024 10:55 AM [facility] CBC COMMENT NORMAL REFERENCE RANGE NOT ESTABLISHED FOR THE PROPORTIONAL LEUKOCYTE DIFFERENTIAL. 06/19/2024 10:55 AM [facility] NEUTROPHILS % 60.3 % 06/19/2024 10:55 AM [facility] LYMPHOCYTES % 26.4 % 06/19/2024 10:55 AM [facility] MONOCYTES % 5.9 % 06/19/2024 10:55 AM [facility] EOSINOPHILS % 6.3 % 06/19/2024 10:55 AM [facility] BASOPHILS % 0.9 % 06/19/2024 10:55 AM [facility] IMMATURE GRANS % 0.2 % 06/19/20 10:55 AM [facility] NRBC % 0.0 % 06/19/2024 10:55 AM [facility] ABS. NEUTROPHILS 5.42 1.60 - 8.30 x10'3/uL 06/19/2024 10:55 AM [facility] ABS. LYMPHOCYTES 2.37 0.80 - 4.70 x10'3/uL 06/19/2024 10:55 AM DAIRY FARM OPERATOR [facility] ABS. MONOCYTES 0.53 0.00 - 1.50 x10'3/uL 06/19/2024 10:55 AM DAIRY FARM OPERATOR [facility] ABS. EOSINOPHILS 0.57(H) 0.00 - 0.40 x10'3/uL 06/19/2024 10:55 AM DAIRY FARM OPERATOR [facility] ABS. BASOPHILS 0.08 0.00 - 0.20 x10'3/uL 06/19/2024 10:55 AM DAIRY FARM OPERATOR [facility] ABS. IMMATURE GRANULOCYTES 0.02 0.00 - 0.03 x10'3/uL 06/19/2024 10:55 AM DAIRY FARM OPERATOR [facility] ABS. NUCLEATED RBC'S 0.00 0.00 - 0.01 x10'3/uL 06/19/2024 10:55 AM DAIRY FARM OPERATOR [facility] 06/19/2024 10:4 0 AM DAIRY FARM OPERATOR Roberta Alex MD LABORATORY Final Result [facility] [address] [place] [address], documented in this encounter Visit Diagnoses Diagnosis Thrombocytopenia (CMS/HCC)- Primary Thrombocytopenia, unspecified documented in this encounter Additional Health Concerns Infection Onset Date Last Indicated Resolved Time MRSA 06/05/2021 06/05/2021 documented as of this encounter Care Teams Char Belt Operator Relationship Specialty Start Date End Date Alejandro Blevins MD PCP - General FAMILY PRACTICE 12/10/19 documented as of this encounter
--- OUTSIDE RECORDS SUMMARY | 2024-07-11 09:50 | XMS_ITS | Encounter Summary ---
Author Organization [facility] Address [address] [place] [address]. [place], [place] [address] [place] [address] Care Team Providers Care Poultry Farm Laborer Name Role Phone Alejandro Blevins MD Primary Care Provider [phone] Encounter Details Date Type Department Care Team [...] on file Legal Sex Female 11:30 PM PRIVATE WATCHMAN Gender Identity Female 11/10/2021 3:09 PM CDT Sexual Orientation Straight 11/10/2021 3: 09 PM CDT documented as of this encounter Functional Status * RETIRED Are you deaf or do you have serious difficulty hearing Answer Date of Assessment Author Status No 07/30/2020 10:48 PM PRIVATE WATCHMAN Acti ve * RETIRED Are you blind or do you have serious difficulty seeing, even when wearing glasses? Answer Date of Assessment Author Status No 07/30/2020 10:46 PM PRIVATE WATCHMAN Acti ve * Do you have serious difficulty walking or climbing stairs? Answer Date of Assessment Author Status No 07/30/2020 10:46 PM PRIVATE WATCHMAN Nella Le RN Active * Do you have difficulty dressing or bathing? Answer Date of Assessment Author Status No 07/30/2020 10:46 PM PRIVATE WATCHMAN Nella Le RN Active * Because of a physical, mental, or emotional condition, do you have difficulty doing errands alone such as visiting a doctor's office or shopping? Answer Date of Assessment Author Status No 07/30/2020 10:46 PM PRIVATE WATCHMAN Nella Le RN Active documented as of this encounter Mental Status * Because of a physical, mental, or emotional condition, do you have serious difficulty concentrating, remembering, or making decisions? Answer Entry Date Author Status No 07/30/2020 10:46 PM PRIVATE WATCHMAN Nella Le RN Active documented in this encounter Plan of Treatment Upcoming Encounters Date Type Department Care Team (Late st Contact Info) Description 09/25/2024 11:30 AM PRIVATE WATCHMAN Appointment [facility] [address] [place] [address] Roberta Alex MD [address] [place] [address] 09/25/2024 11:40 AM PRIVATE WATCHMAN Office Visit [facility] [address] [place] [address] Roberta Alex MD [address] [place] [address] documented as of this encounter Visit Diagnoses Not on filedocumented in this encounter Additional Health Concerns Infection Onset Date Last Indicated Resolved Time MRSA 06/05/2021 06/05/2021 documented as of this encounter Care Teams Poultry Farm Laborer Relationship Specialty Start Date End Date Alejandro Blevins MD PCP - General FAMILY PRACTICE 12/10/19 documented as of this encounter
--- OUTSIDE RECORDS SUMMARY | 2024-07-11 09:50 | XMS_ITS | Encounter Summary ---
Author Organization [facility] Address [address] [place] [address]. [place], [place] [address] [place] [address] Care Team Providers Care Cotton Agent Name Role Phone Alejandro Blevins MD Primary Care Provider [phone] Encounter Details Date Type Department Care Team [...] on file Legal Sex Female 11:30 PM SUPERVISING FILM OR VIDEOTAPE EDITOR Gender Identity Female 11/10/2021 3:09 PM CDT Sexual Orientation Straight 11/10/2021 3: 09 PM CDT documented as of this encounter Functional Status * RETIRED Are you deaf or do you have serious difficulty hearing Answer Date of Assessment Author Status No 07/30/2020 10:48 PM SUPERVISING FILM OR VIDEOTAPE EDITOR Acti ve * RETIRED Are you blind or do you have serious difficulty seeing, even when wearing glasses? Answer Date of Assessment Author Status No 07/30/2020 10:46 PM SUPERVISING FILM OR VIDEOTAPE EDITOR Acti ve * Do you have serious difficulty walking or climbing stairs? Answer Date of Assessment Author Status No 07/30/2020 10:46 PM SUPERVISING FILM OR VIDEOTAPE EDITOR Nella Le RN Active * Do you have difficulty dressing or bathing? Answer Date of Assessment Author Status No 07/30/2020 10:46 PM SUPERVISING FILM OR VIDEOTAPE EDITOR Nella Le RN Active * Because of a physical, mental, or emotional condition, do you have difficulty doing errands alone such as visiting a doctor's office or shopping? Answer Date of Assessment Author Status No 07/30/2020 10:46 PM SUPERVISING FILM OR VIDEOTAPE EDITOR Nella Le RN Active documented as of this encounter Mental Status * Because of a physical, mental, or emotional condition, do you have serious difficulty concentrating, remembering, or making decisions? Answer Entry Date Author Status No 07/30/2020 10:46 PM SUPERVISING FILM OR VIDEOTAPE EDITOR Nella Le RN Active documented in this encounter Plan of Treatment Upcoming Encounters Date Type Department Care Team (Late st Contact Info) Description 09/25/2024 11:30 AM SUPERVISING FILM OR VIDEOTAPE EDITOR Appointment [facility] [address] [address] Roberta Alex MD [address] [place] [address] 09/25/2024 11:40 AM SUPERVISING FILM OR VIDEOTAPE EDITOR Office Visit [facility] [address] [place] [address] Roberta Alex MD [address] [place] [address] documented as of this encounter Visit Diagnoses Not on filedocumented in this encounter Additional Health Concerns Infection Onset Date Last Indicated Resolved Time MRSA 06/05/2021 06/05/2021 documented as of this encounter Care Teams Cotton Agent Relationship Specialty Start Date End Date Alejandro Blevins MD PCP - General FAMILY PRACTICE 12/10/19 documented as of this encounter
--- OUTSIDE RECORDS SUMMARY | 2024-07-11 09:50 | XMS_ITS | Encounter Summary ---
Author Organization [facility] Address [facility] [place] [address] [place] [address] Care Team Providers Care Planograph Operator Name Role Phone Alejandro Blevins MD Primary Care Provider [phone] Encounter Details Date Type Department Care Team (Latest Contact Info) Description 10/18/2023 12:04 PM CDT - 10/18/2023 11:59 PM CDT Hospital Encounter [address] [place] [address] Roberta Alex MD [address] [place] [address] Discharge Disposition: Home or Self Care (Routine Discharge) Social History Tobacco Use Types Packs/Day Years Used Date Smoking Tobacco: Every Day Cigarettes Smokeless Tobacco: Never Alcohol Use Standard Drinks/Week Comments Not Currently 0 (1 standard drink = 0.6 oz pur e alcohol) Comments No Sex and Gender Information Value Date Recorded Sex Assigned at Not on file Legal Sex Female 11:30 PM MEDICAL BILLING COORDINATOR Gender Identity Female 11/10/2021 3:09 PM CDT Sexual Orientation Straight 11/10/2021 3: 09 PM CDT documented as of this encounter Functional Status * RETIRED Are you deaf or do you have serious difficulty hearing Answer Date of Assessment Author Status No 07/30/2020 10:48 PM MEDICAL BILLING COORDINATOR Acti ve * RETIRED Are you blind or do you have serious difficulty seeing, even when wearing glasses? Answer Date of Assessment Author Status No 07/30/2020 10:46 PM MEDICAL BILLING COORDINATOR Acti ve * Do you have [...] Contact Info) Description 09/25/2024 11:30 AM MEDICAL BILLING COORDINATOR Appointment [facility] [address] [place] [address] Roberta Alex MD [address] [place] [address] 09/25/2024 11:40 AM MEDICAL BILLING COORDINATOR Office Visit [facility] [address] [place] [address] Roberta Alex MD [address] [place], [place] [address] documented as of this encounter Procedures Procedure Name Priority Date/Time Associated Diagnosis Comments CBC W/DIFF AUTOMATED Routine 10/18/2023 12:13 PM CDT Thrombocytopenia (CMS/HCC) documented in this encounter Results * (ABNORMAL) CBC W/DIFF AUTOMATED (10/18/2023 12:13 PM CDT) WBC 8.17 4.00 - 10.80 x10'3/uL 10/18/2023 12:27 PM CDT [facility] RBC 4.69 4.10 - 5.40 x10'6/uL 10/18/2023 12:27 PM CDT [facility] HGB 13.3 12.0 - 16.0 G/DL 10/18/2023 12:27 PM CDT [facility] HCT 41.8 36.0 - 47.0 % 10/18/2023 12:27 PM CDT [facility] MCV 89.1 78.0 - 100.0 FL 10/18/2023 12:27 PM CDT [facility] MCH 28.4 27.0 - 31.0 PG 10/18/2023 12:27 PM CDT [facility] MCHC 31.8(L) 33.0 - 36.0 G/DL 10/18/2023 12:27 PM CDT [facility] RDW 12.7 11.5 - 14.5 % 10/18/2023 12:27 PM CDT [facility] PLT 33(L) 150 - 350 x10'3/uL 10/18/2023 12:27 PM CDT [facility] MPV RESULTS NOT AVAILABLE 7.4 - 10.4 FL 10/18/2023 12:27 PM CDT [facility] CBC COMMENT NORMAL REFERENCE RANGE NOT ESTABLISHED FOR THE PROPORTIONAL LEUKOCYTE DIFFERENTIAL. 10/18/2023 12:27 PM CDT [facility] NEUTROPHILS % 65.0 % 10/18/2023 12:27 PM CDT [facility] LYMPHOCYTES % 22.3 % 10/18/2023 12:27 PM CDT [facility] MONOCYTES % 5.0 % 10/18/2023 12:27 PM CDT [facility] EOSINOPHILS % 6.5 % 10/18/2023 12:27 PM CDT [facility] BASOPHILS % 1.0 % 10/18/2023 12:27 PM CDT [facility] IMMATURE GRANS % 0.2 % 10/18/19 12:27 PM CDT [facility] NRBC 0.0 % 10/18/2023 12:27 PM CDT [facility] ABS. NEUTROPHILS 5.31 1.60 - 8.30 x10'3/uL 10/18/2023 12:27 PM CDT [facility] ABS. LYMPHOCYTES 1.82 0.80 - 4.70 x10'3/uL 10/18/2023 12:27 PM CDT [facility] ABS. MONOCYTES 0.41 0.00 - 1.50 x10'3/uL 10/18/2023 12:27 PM CDT [facility] ABS. EOSINOPHILS 0.53(H) 0.00 - 0.40 x10'3/uL 10/18/2023 12:27 PM CDT [facility] ABS. BASOPHILS 0.08 0.00 - 0.20 x10'3/uL 10/18/2023 12:27 PM CDT [facility] ABS. IMMATURE GRANULOCYTES 0.02 0.00 - 0.03 x10'3/uL 10/18/2023 12:27 PM CDT [facility] ABS. NUCLEATED RBC'S 0.00 0.00 x10'3/uL 10/18/2023 12:27 PM CDT [facility] PLT MORPH. DECREASED 10/18/2023 12:34 PM CDT [facility] RBC MORPHOLOGY NORMAL 10/18/2023 12:34 PM CDT [facility] 10/18/2023 12:1 3 PM CDT Roberta Alex MD LABORATORY Final Result [facility] [address] [place] [address], documented in this encounter Visit Diagnoses Diagnosis Thrombocytopenia (CMS/HCC) Thrombocytopenia, unspecified documented in this encounter Additional Health Concerns Infection Onset Date Last Indicated Resolved Time MRSA 06/05/2021 06/05/2021 documented as of this encounter Care Teams Planograph Operator Relationship Specialty Start Date End Date Alejandro Blevins MD PCP - General FAMILY PRACTICE 12/10/19 documented as of this encounter
--- OUTSIDE RECORDS SUMMARY | 2024-07-11 09:50 | XMS_ITS | Encounter Summary ---
Author Organization [facility] Address [address] [place] [address]. [place], [place] [address] [place] [address] Care Team Providers Care Metal Cutter Name Role Phone Alejandro Blevins MD Primary Care Provider [phone] Encounter Details Date Type Department Care Team [...] file Legal Sex Female 11:30 PM MANAGER POOL Gender Identity Female 11/10/2021 3:09 PM CDT Sexual Orientation Straight 11/10/2021 3: 09 PM CDT documented as of this encounter Functional Status * RETIRED Are you deaf or do you have serious difficulty hearing Answer Date of Assessment Author Status No 07/30/2020 10:48 PM MANAGER POOL Acti ve * RETIRED Are you blind or do you have serious difficulty seeing, even when wearing glasses? Answer Date of Assessment Author Status No 07/30/2020 10:46 PM MANAGER POOL Acti ve * Do you have serious difficulty walking or climbing stairs? Answer Date of Assessment Author Status No 07/30/2020 10:46 PM MANAGER POOL Nella Le RN Active * Do you have difficulty dressing or bathing? Answer Date of Assessment Author Status No 07/30/2020 10:46 PM MANAGER POOL Nella Le RN Active * Because of a physical, mental, or emotional condition, do you have difficulty doing errands alone such as visiting a doctor's office or shopping? Answer Date of Assessment Author Status No 07/30/2020 10:46 PM MANAGER POOL Nella Le RN Active documented as of this encounter Mental Status * Because of a physical, mental, or emotional condition, do you have serious difficulty concentrating, remembering, or making decisions? Answer Entry Date Author Status No 07/30/2020 10:46 PM MANAGER POOL Nella Le RN Active documented in this encounter Plan of Treatment Upcoming Encounters Date Type Department Care Team (Late st Contact Info) Description 09/25/2024 11:30 AM MANAGER POOL Appointment [facility] [address] [facility] [place] [address] Roberta Alex MD [address] [place] [address] 09/25/2024 11:40 AM MANAGER POOL Office Visit [facility] [address] [facility] [place] [address] Roberta Alex MD [address] [place] [address] documented as of this encounter Visit Diagnoses Not on filedocumented in this encounter Additional Health Concerns Infection Onset Date Last Indicated Resolved Time MRSA 06/05/2021 06/05/2021 documented as of this encounter Care Teams Metal Cutter Relationship Specialty Start Date End Date Alejandro Blevins MD PCP - General FAMILY PRACTICE 12/10/19 documented as of this encounter
--- OUTSIDE RECORDS SUMMARY | 2024-07-11 09:50 | XMS_ITS | Encounter Summary ---
Author Organization [facility] Address [address] [place] [address]. [place], [place] [address] [place] [address] Care Team Providers Care Flue Lining Dipper Name Role Phone Alejandro Blevins MD Primary [...] file Legal Sex Female 11:30 PM MEDICAL SALES CONSULTANT Gender Identity Female 11/10/2021 3:09 PM CDT Sexual Orientation Straight 11/10/2021 3: 09 PM CDT documented as of this encounter Functional Status * RETIRED Are you deaf or do you have serious difficulty hearing Answer Date of Assessment Author Status No 07/30/2020 10:48 PM MEDICAL SALES CONSULTANT Acti ve * RETIRED Are you blind or do you have serious difficulty seeing, even when wearing glasses? Answer Date of Assessment Author Status No 07/30/2020 10:46 PM MEDICAL SALES CONSULTANT Acti ve * Do you have serious difficulty walking or climbing stairs? Answer Date of Assessment Author Status No 07/30/2020 10:46 PM MEDICAL SALES CONSULTANT Nella Le RN Active * Do you have difficulty dressing or bathing? Answer Date of Assessment Author Status No 07/30/2020 10:46 PM MEDICAL SALES CONSULTANT Nella Le RN Active * Because of a physical, mental, or emotional condition, do you have difficulty doing errands alone such as visiting a doctor's office or shopping? Answer Date of Assessment Author Status No 07/30/2020 10:46 PM MEDICAL SALES CONSULTANT Nella Le RN Active documented as of this encounter Mental Status * Because of a physical, mental, or emotional condition, do you have serious difficulty concentrating, remembering, or making decisions? Answer Entry Date Author Status No 07/30/2020 10:46 PM MEDICAL SALES CONSULTANT Nella Le RN Active documented in this encounter Plan of Treatment Upcoming Encounters Date Type Department Care Team (Late st Contact Info) Description 09/25/2024 11:30 AM MEDICAL SALES CONSULTANT Appointment [facility] [address] [facility] [place] [address] Roberta Alex MD [address] [place] [address] 09/25/2024 11:40 AM MEDICAL SALES CONSULTANT Office Visit [facility] [address] [facility] [address] Roberta Alex MD [address] [place] [address] documented as of this encounter Visit Diagnoses Not on filedocumented in this encounter Additional Health Concerns Infection Onset Date Last Indicated Resolved Time MRSA 06/05/2021 06/05/2021 documented as of this encounter Care Teams Flue Lining Dipper Relationship Specialty Start Date End Date Alejandro Blevins MD PCP - General FAMILY PRACTICE 12/10/19 documented as of this encounter
--- OUTSIDE RECORDS SUMMARY | 2024-07-11 09:50 | XMS_ITS | Encounter Summary ---
Author Organization [facility] Address Pending sale to [facility] [place] [address] [place] [address] Care Team Providers Care Breaker Boss Name Role Phone Alejandro Blevins MD Primary Care Provider [phone] Encounter Details Date Type Department Care Team (Latest Contact Info) Description 01/17/2024 2:27 PM CDT - 01/17/2024 11:59 PM CDT Hospital Encounter [address] [place] [address] Roberta Alex MD [address] [place] [address] Discharge Disposition: Home or Self Care (Routine Discharge) Social History Tobacco Use Types Packs/Day Years Used Date Smoking Tobacco: Every Day Cigarettes Smokeless Tobacco: Never Alcohol Use Standard Drinks/Week Comments Not Currently 0 (1 standard drink = 0.6 oz pur e alcohol) Comments No Sex and Gender Information Value Date Recorded Sex Assigned at Not on file Legal Sex Female 11:30 PM INSURANCE UNDERWRITER SALES Gender Identity Female 11/10/2021 3:09 PM CDT Sexual Orientation Straight 11/10/2021 3: 09 PM CDT documented as of this encounter Functional Status * RETIRED Are you deaf or do you have serious difficulty hearing Answer Date of Assessment Author Status No 07/30/2020 10:48 PM INSURANCE UNDERWRITER SALES Acti ve * RETIRED Are you blind or do you have serious difficulty seeing, even when wearing glasses? Answer Date of Assessment Author Status No 07/30/2020 10:46 PM INSURANCE UNDERWRITER SALES Acti ve * Do you have [...] st Contact Info) Description 09/25/2024 11:30 AM INSURANCE UNDERWRITER SALES Appointment [facility] [address] [place] [address] Roberta Alex MD [address] [place] [address] 09/25/2024 11:40 AM INSURANCE UNDERWRITER SALES Office Visit [facility] [address] [place] [address] Roberta Alex MD [address] [place] [id number] documented as of this encounter Procedures Procedure Name Priority Date/Time Associated Diagnosis Comments CBC W/DIFF AUTOMATED Routine 01/17/2024 2:35 PM CDT Thrombocytopenia (CMS/HCC) documented in this encounter Results * (ABNORMAL) CBC W/DIFF AUTOMATED (01/17/2024 2:35 PM CDT) WBC 11.56(H) 4.00 - 10.80 x10'3/uL 01/17/2024 3:10 PM CDT [facility] RBC 4.81 4.10 - 5.40 x10'6/uL 01/17/2024 3:10 PM CDT [facility] HGB 13.5 12.0 - 16.0 G/DL 01/17/2024 3:10 PM CDT [facility] HCT 42.2 36.0 - 47.0 % 01/17/2024 3:10 PM CDT [facility] MCV 87.7 78.0 - 100.0 FL 01/17/2024 3:10 PM CDT [facility] MCH 28.1 27.0 - 31.0 PG 01/17/2024 3:10 PM CDT [facility] MCHC 32.0(L) 33.0 - 36.0 G/DL 01/17/2024 3:10 PM CDT [facility] RDW 12.9 11.5 - 14.5 % 01/17/2024 3:10 PM CDT [facility] PLT 191 150 - 350 x10'3/uL 01/17/2024 3:10 PM CDT [facility] MPV 14.0(H) 7.4 - 10.4 FL 01/17/2024 3:10 PM CDT [facility] CBC COMMENT NORMAL REFERENCE RANGE NOT ESTABLISHED FOR THE PROPORTIONAL LEUKOCYTE DIFFERENTIAL. 01/17/2024 3:10 PM CDT [facility] NEUTROPHILS % 79.1 % 01/17/2024 3:13 PM CDT [facility] LYMPHOCYTES % 13.6 % 01/17/2024 3:13 PM CDT [facility] MONOCYTES % 4.5 % 01/17/2024 3:13 PM CDT [facility] EOSINOPHILS % 1.7 % 01/17/2024 3:13 PM CDT [facility] BASOPHILS % 0.8 % 01/17/2024 3:13 PM CDT [facility] IMMATURE GRANS % 0.3 % 01/17/20 3:13 PM CDT [facility] NRBC 0.0 % 01/17/2024 3:13 PM CDT [facility] ABS. NEUTROPHILS 9.15(H) 1.60 - 8.30 x10'3/uL 01/17/2024 3:13 PM CDT [facility] ABS. LYMPHOCYTES 1.57 0.80 - 4.70 x10'3/uL 01/17/2024 3:13 PM CDT [facility] ABS. MONOCYTES 0.52 0.00 - 1.50 x10'3/uL 01/17/2024 3:13 PM CDT [facility] ABS. EOSINOPHILS 0.20 0.00 - 0.40 x10'3/uL 01/17/2024 3:13 PM CDT [facility] ABS. BASOPHILS 0.09 0.00 - 0.20 x10'3/uL 01/17/2024 3:13 PM CDT [facility] ABS. IMMATURE GRANULOCYTES 0.03 0.00 - 0.03 x10'3/uL 01/17/2024 3:13 PM CDT [facility] ABS. NUCLEATED RBC'S 0.00 0.00 - 0.01 x10'3/uL 01/17/2024 3:13 PM CDT [facility] PLT MORPH. NORMAL 01/17/2024 3:13 PM CDT [facility] RBC MORPHOLOGY NORMAL 01/17/2024 3:13 PM CDT [facility] 01/17/2024 2:35 PM CDT us Roberta Alex MD LABORATORY Final Result [facility] [address] [place] [address], documented in this encounter Visit Diagnoses Diagnosis Thrombocytopenia (CMS/HCC) Thrombocytopenia, unspecified documented in this encounter Additional Health Concerns Infection Onset Date Last Indicated Resolved Time MRSA 06/05/2021 06/05/2021 documented as of this encounter Care Teams Breaker Boss Relationship Specialty Start Date End Date Alejandro Blevins MD PCP - General FAMILY PRACTICE 12/10/19 documented as of this encounter
--- OUTSIDE RECORDS SUMMARY | 2024-07-11 09:50 | XMS_ITS | Encounter Summary ---
Author Organization [facility] Address [address] [place] [address]. [place], [place] [address] [place] [address] Care Team Providers Care Engineering Technical Writer Name Role Phone Alejandro Blevins MD Primary Care Provider [phone] Encounter Details Date Type Department Care Team [...] file Legal Sex Female 11:30 PM BILINGUAL NANNY Gender Identity Female 11/10/2021 3:09 PM CDT Sexual Orientation Straight 11/10/2021 3: 09 PM CDT documented as of this encounter Functional Status * RETIRED Are you deaf or do you have serious difficulty hearing Answer Date of Assessment Author Status No 07/30/2020 10:48 PM BILINGUAL NANNY Acti ve * RETIRED Are you blind or do you have serious difficulty seeing, even when wearing glasses? Answer Date of Assessment Author Status No 07/30/2020 10:46 PM BILINGUAL NANNY Acti ve * Do you have serious difficulty walking or climbing stairs? Answer Date of Assessment Author Status No 07/30/2020 10:46 PM BILINGUAL NANNY Nella Le RN Active * Do you have difficulty dressing or bathing? Answer Date of Assessment Author Status No 07/30/2020 10:46 PM BILINGUAL NANNY Nella Le RN Active * Because of a physical, mental, or emotional condition, do you have difficulty doing errands alone such as visiting a doctor's office or shopping? Answer Date of Assessment Author Status No 07/30/2020 10:46 PM BILINGUAL NANNY Nella Le RN Active documented as of this encounter Mental Status * Because of a physical, mental, or emotional condition, do you have serious difficulty concentrating, remembering, or making decisions? Answer Entry Date Author Status No 07/30/2020 10:46 PM BILINGUAL NANNY Nella Le RN Active documented in this encounter Plan of Treatment Upcoming Encounters Date Type Department Care Team (Late st Contact Info) Description 09/25/2024 11:30 AM BILINGUAL NANNY Appointment [facility] [address] [address] [facility] [place] [address] Roberta Alex MD [address] [place] [address] 09/25/2024 11:40 AM BILINGUAL NANNY Office Visit [facility] [address] [place] [address] Roberta Alex MD [address] [place] [address] documented as of this encounter Visit Diagnoses Not on filedocumented in this encounter Additional Health Concerns Infection Onset Date Last Indicated Resolved Time MRSA 06/05/2021 06/05/2021 documented as of this encounter Care Teams Engineering Technical Writer Relationship Specialty Start Date End Date Alejandro Blevins MD PCP - General FAMILY PRACTICE 12/10/19 documented as of this encounter
--- OUTSIDE RECORDS SUMMARY | 2024-07-11 09:50 | XMS_ITS | Clinical Summary ---
Author Organization [facility] Address [address] [place] [address]. [place] [address] [place] [address] Care Team Providers Care Coffee Maker Name Role Phone Alejandro Blevins MD Primary Care Provider [phone] Allergies Active Allergy Reactions Criticality Noted Date [...] omeprazole (PRILOSEC) 20 MG capsuleIndicati ons:Acute ITP ([facility] HHS/HCC) TAKE 1 CAPSULE BY MOUTH EVERY [...] 07/30/2020 Chronic ITP (idiopathic thrombocytopenia) (CMS/H CC [facility]) 05/13/2020 Iron deficiency anemia secon brooke to inadequate dietary iron intake 12/19/2019 Other dietary vitamin B12 deficiency anemia 11/23 Hepatitis C virus infection without hepatic coma 12/08/2019 Polysubstance abuse ([facility] HHS/[facility]) 12/08/2019 Thrombocytopenia affecting ([facility]) 12/08/2019 Transaminitis 12/08/2019 Twin ([facility]) 12/08/2019 Anemia 12/07/2019 Encounters Date Type Department Care Team Description 06/19/2024 10:40 AM FORESTRY CONSERVATION WORKER Office [facility] [place] [address] Roberta Alex MD Follow Up (Chronic ITP (idiopathic thrombocytopenia) ([facility])); Lab Results 06/19/2024 10:20 AM FORESTRY CONSERVATION WORKER - 06/19/2024 11:59 PM FORESTRY CONSERVATION WORKER Hospital Encounter [facility] [place] [address] [place] [address] Roberta Alex MD Discharge Disposition: Home or Self Care (Routine Discharge) 06/19/2024 Orders Only [facility] [place] [address] [address] Roberta Alex MD 06/19/2024 Travel from Last [...] on file Legal Sex Female 11:30 PM FORESTRY CONSERVATION WORKER Gender Identity Female 11/10/2021 3:09 PM CDT Sexual Orientation Straight 11/10/2021 3: 09 PM CDT Last Filed Vital Signs Vital Sign Reading Time Taken Comments Blood Pressure 122/75 06/19/2024 10:47 AM FORESTRY CONSERVATION WORKER Pulse 73 06/19/2024 10:47 AM FORESTRY CONSERVATION WORKER Temperature 36.1 ??C (97 ??F) 06/19/2024 10: 47 AM FORESTRY CONSERVATION WORKER Respiratory Rate 20 06/19/2024 10:4 7 AM FORESTRY CONSERVATION WORKER Oxygen Saturation 99% 06/19/2024 10: 47 AM FORESTRY CONSERVATION WORKER Inhaled Oxygen Concentration - - Weight 77.1 kg (169 lb 15.6 oz) 024 10:47 AM FORESTRY CONSERVATION WORKER Height 160 cm (5' 3 ) 06/19/2024 10:47 AM FORESTRY CONSERVATION WORKER Body Mass Index 30.11 06/19/2024 10:47 AM FORESTRY CONSERVATION WORKER Plan of Treatment Upcoming Encounters Date Type Department Care Team (Late st Contact Info) Description 09/25/2024 11:30 AM FORESTRY CONSERVATION WORKER Appointment [facility] [address] [place] [address] Roberta Alex MD [address] [place] [address] 09/25/2024 11:40 AM FORESTRY CONSERVATION WORKER Office Visit [facility] [address] [place] [address] Roberta Alex MD [address] [place] [address] Health Maintenance Due Date Last Done Comments [...] CBC W/DIFF AUTOMATED Routine 06/19/2024 10:40 AM FORESTRY CONSERVATION WORKER Thrombocytopenia (CMS/HCC) from Last 3 Months Results * (ABNORMAL) CBC W/DIFF AUTOMATED (06/19/2024 10:40 AM FORESTRY CONSERVATION WORKER) WBC 8.99 4.00 - 10.80 x10'3/uL 06/19/2024 10:55 AM FORESTRY CONSERVATION WORKER [facility] RBC 4.87 4.10 - 5.40 x10'6/uL 06/19/2024 10:55 AM FORESTRY CONSERVATION WORKER [facility] HGB 14.1 12.0 - 16.0 G/DL 06/19/2024 10:55 AM FORESTRY CONSERVATION WORKER [facility] HCT 43.5 36.0 - 47.0 % 06/19/2024 10:55 AM FORESTRY CONSERVATION WORKER [facility] MCV 89.3 78.0 - 100.0 FL 06/19/2024 10:55 AM FORESTRY CONSERVATION WORKER [facility] MCH 29.0 27.0 - 31.0 PG 06/19/2024 10:55 AM FORESTRY CONSERVATION WORKER [facility] MCHC 32.4(L) 33.0 - 36.0 G/DL 06/19/2024 10:55 AM [facility] RDW 13.9 11.5 - 14.5 % 06/19/2024 10:55 AM [facility] PLT 197 150 - 350 x10'3/uL 06/19/2024 10:55 AM [facility] MPV 13.0(H) 7.4 - 10.4 FL 06/19/2024 10:55 AM [facility] CBC COMMENT NORMAL REFERENCE RANGE NOT ESTABLISHED FOR THE PROPORTIONAL LEUKOCYTE DIFFERENTIAL. 06/19/2024 10:55 AM [facility] NEUTROPHILS % 60.3 % 06/19/2024 10:55 AM [facility] LYMPHOCYTES % 26.4 % 06/19/2024 10:55 AM [facility] MONOCYTES % 5.9 % 06/19/2024 10:55 AM [facility] EOSINOPHILS % 6.3 % 06/19/2024 10:55 AM [facility] BASOPHILS % 0.9 % 06/19/2024 10:55 AM [facility] IMMATURE GRANS % 0.2 % 06/19/20 10:55 AM [facility] NRBC % 0.0 % 06/19/2024 10:55 AM [facility] ABS. NEUTROPHILS 5.42 1.60 - 8.30 x10'3/uL 06/19/2024 10:55 AM [facility] ABS. LYMPHOCYTES 2.37 0.80 - 4.70 x10'3/uL 06/19/2024 10:55 AM [facility] ABS. MONOCYTES 0.53 0.00 - 1.50 x10'3/uL 06/19/2024 10:55 AM [facility] ABS. EOSINOPHILS 0.57(H) 0.00 - 0.40 x10'3/uL 06/19/2024 10:55 AM [facility] ABS. BASOPHILS 0.08 0.00 - 0.20 x10'3/uL 06/19/2024 10:55 AM FORESTRY CONSERVATION WORKER [facility] ABS. IMMATURE GRANULOCYTES 0.02 0.00 - 0.03 x10'3/uL 06/19/2024 10:55 AM FORESTRY CONSERVATION WORKER [facility] ABS. NUCLEATED RBC'S 0.00 0.00 - 0.01 x10'3/uL 06/19/2024 10:55 AM FORESTRY CONSERVATION WORKER [facility] 06/19/2024 10:4 0 AM FORESTRY CONSERVATION WORKER us Roberta Alex MD LABORATORY Final Result [facility] [address] [facility] [place] [id number], from Last 3 Months Additional Health Concerns Infection Onset Date Last Indicated MRSA 06/05/2021 06/05/[address] [place] [place] [address] Advance Directives * Full Code (Latest Code Status on File) Date Activated Date Inactivated Comments 07/30/2020 3:42 PM 07/31/2020 6:41 PM Care Teams Coffee Maker Relationship Specialty Start Date End Date Alejandro Blevins MD PCP - General FAMILY PRACTICE 12/10/19
--- OUTSIDE RECORDS SUMMARY | 2024-07-11 09:50 | XMS_ITS | Encounter Summary ---
Author Organization [facility] Address [address] [place] [address]. [place] [address] [place] [address] Care Team Providers Care Rectangular Tank Cooper Name Role Phone Alejandro Blevins MD Primary Care Provider [phone] Reason for Visit * Reason Comments Follow Up Chronic ITP (idiopat hic thrombocytopenia) ([facility] HHS/HCC) Lab Results Encounter Details Date Type Department Care Team (Late st Contact Info) Description 06/19/2024 10:40 AM CUP TRIMMING MACHINE OPERATOR Office Visit [address] [place] [address] Roberta Alex MD [address] [place], [place] [id number] Follow Up (Chronic ITP (idiopathic thrombocytopenia) ([facility] H[facility]/HCC)); Lab Results Social History Tobacco Use [...] on file Legal Sex Female 11:30 PM CUP TRIMMING MACHINE OPERATOR Gender Identity Female 11/10/2021 3:09 PM CDT Sexual Orientation Straight 11/10/2021 3: 09 PM CDT documented as of this encounter Last Filed Vital Signs Vital Sign Reading Time Taken Comments Blood Pressure 122/75 06/19/2024 10:47 AM CUP TRIMMING MACHINE OPERATOR Pulse 73 06/19/2024 10:47 AM CUP TRIMMING MACHINE OPERATOR Temperature 36.1 ??C (97 ??F) 06/19/2024 10: 47 AM CUP TRIMMING MACHINE OPERATOR Respiratory Rate 20 06/19/2024 10:4 7 AM CUP TRIMMING MACHINE OPERATOR Oxygen Saturation 99% 06/19/2024 10: 47 AM CUP TRIMMING MACHINE OPERATOR Inhaled Oxygen Concentration - - Weight 77.1 kg (169 lb 15.6 oz) 024 10:47 AM CUP TRIMMING MACHINE OPERATOR Height 160 cm (5' 3 ) 06/19/2024 10:47 AM CUP TRIMMING MACHINE OPERATOR Body Mass Index 30.11 06/19/2024 10:47 AM CUP TRIMMING MACHINE OPERATOR documented in this encounter Functional Status * RETIRED Are you deaf or do you have serious difficulty hearing Answer Date of Assessment Author Status No 07/30/2020 10:48 PM CUP TRIMMING MACHINE OPERATOR Acti ve * RETIRED Are you blind or do you have serious difficulty seeing, even when wearing glasses? Answer Date of Assessment Author Status No 07/30/2020 10:46 PM CUP TRIMMING MACHINE OPERATOR Acti ve * Do you have serious difficulty walking or climbing stairs? Answer Date of Assessment Author Status No 07/30/2020 10:46 PM CUP TRIMMING MACHINE OPERATOR Nella Le RN Active * Do you have difficulty dressing or bathing? Answer Date of Assessment Author Status No 07/30/2020 10:46 PM CUP TRIMMING MACHINE OPERATOR Nella Le RN Active * Because of a physical, mental, or emotional condition, do you have difficulty doing errands alone such as visiting a doctor's office or shopping? Answer Date of Assessment Author Status No 07/30/2020 10:46 PM CUP TRIMMING MACHINE OPERATOR Nella Le RN Active documented [...] Roberta Alex MD CC: Alejandro Blevins MD TRIMMING MACHINE OPERATOR documented in this encounter Plan of Treatment Upcoming Encounters Date Type Department Care Team (Late st Contact Info) Description 09/25/2024 11:30 AM CUP TRIMMING MACHINE OPERATOR Appointment [facility] [address] [place] [address] Roberta Alex MD [address] [place] [address] 09/25/2024 11:40 AM CUP TRIMMING MACHINE OPERATOR Office Visit [facility] [place] [address] Roberta Alex MD [address] [place] [address] documented as of this encounter Visit Diagnoses Diagnosis Chronic ITP (idiopathic thrombocytopenia) ([facility]/HCC [facility]/HCC)- Primary Immune thrombocytopenic purpura Iron deficiency anemia secondary to inadequate dietary iron intake [D50.8] Iron deficiency anemia secondary to inadequate dietary iron intake documented in this encounter Additional Health Concerns Infection Onset Date Last Indicated Resolved Time MRSA 06/05/2021 06/05/2021 documented as of this encounter Care Teams Rectangular Tank Cooper Relationship Specialty Start Date End Date Alejandro Blevins MD PCP - General FAMILY PRACTICE 12/10/19 documented as of this encounter
--- OUTSIDE RECORDS SUMMARY | 2024-07-11 09:50 | XMS_ITS | Encounter Summary ---
Author Organization [facility] Address [facility] [place] [address] [place] [address] Care Team Providers Care Technical Sales Representative Name Role Phone Alejandro Blevins MD Primary Care Provider [phone] Encounter Details Date Type Department Care Team (Late st Contact Info) Description 10/03/2023 Orders Only [address] [place] [address] Roberta Alex MD [address] [place] [address] Social History Tobacco Use Types Packs/Day Years Used Date Smoking Tobacco: Every Day Cigarettes Smokeless Tobacco: Never Alcohol Use Standard Drinks/Week Comments Not Currently 0 (1 standard drink = 0.6 oz pur e alcohol) Comments No Sex and Gender Information Value Date Recorded Sex Assigned at Not on file Legal Sex Female 11:30 PM UNDERWRITING SPECIALIST Gender Identity Female 11/10/2021 3:09 PM CDT Sexual Orientation Straight 11/10/2021 3: 09 PM CDT documented as of this encounter Functional Status * RETIRED Are you deaf or do you have serious difficulty hearing Answer Date of Assessment Author Status No 07/30/2020 10:48 PM UNDERWRITING SPECIALIST Acti ve * RETIRED Are you blind or do you have serious difficulty seeing, even when wearing glasses? Answer Date of Assessment Author Status No 07/30/2020 10:46 PM UNDERWRITING SPECIALIST Acti ve * Do you have serious difficulty walking or climbing stairs? Answer Date of Assessment Author Status No 07/30/2020 10:46 PM UNDERWRITING SPECIALIST Bringuet, Nella C, RN Active * Do you have difficulty dressing or bathing? Answer Date of Assessment Author Status No 07/30/2020 10:46 PM UNDERWRITING SPECIALIST Nella Le RN Active * Because [...] st Contact Info) Description 09/25/2024 11:30 AM UNDERWRITING SPECIALIST Appointment [facility] [address] [place] [address] Roberta Alex MD [address] [place] [address] 09/25/2024 11:40 AM UNDERWRITING SPECIALIST Office Visit [facility] [address] [place] [address] Roberta Alex MD [address] [place] [address] documented as of this encounter Visit Diagnoses Diagnosis Chronic ITP (idiopathic thrombocytopenia) ([facility])- Primary Immune thrombocytopenic purpura documented in this encounter Additional Health Concerns Infection Onset Date Last Indicated Resolved Time MRSA 06/05/2021 06/05/2021 documented as of this encounter Care Teams Technical Sales Representative Relationship Specialty Start Date End Date Alejandro Blevins MD PCP - General FAMILY PRACTICE 12/10/19 documented as of this encounter
--- OUTSIDE RECORDS SUMMARY | 2024-07-11 09:50 | XMS_ITS | Encounter Summary ---
Author Organization [facility] Address [facility]ly [facility] [place] [address] [place] [address] Care Team Providers Care Tracer Lathe Set Up Operator Name Role Phone Alejandro Blevins MD Primary Care Provider [phone] Encounter Details Date Type Department Care Team (Late st Contact Info) Description 10/17/2023 Orders Only [address] [place] [address] Roberta Alex MD [address] [place] [address] Social History Tobacco Use Types Packs/Day Years Used Date Smoking Tobacco: Every Day Cigarettes Smokeless Tobacco: Never Alcohol Use Standard Drinks/Week Comments Not Currently 0 (1 standard drink = 0.6 oz pur e alcohol) Comments No Sex and Gender Information Value Date Recorded Sex Assigned at Not on file Legal Sex Female 11:30 PM SAMPLE STEAMER Gender Identity Female 11/10/2021 3:09 PM CDT Sexual Orientation Straight 11/10/2021 3: 09 PM CDT documented as of this encounter Functional Status * RETIRED Are you deaf or do you have serious difficulty hearing Answer Date of Assessment Author Status No 07/30/2020 10:48 PM SAMPLE STEAMER Acti ve * RETIRED Are you blind or do you have serious difficulty seeing, even when wearing glasses? Answer Date of Assessment Author Status No 07/30/2020 10:46 PM SAMPLE STEAMER Acti ve * Do you have serious difficulty walking or climbing stairs? Answer Date of Assessment Author Status No 07/30/2020 10:46 PM SAMPLE STEAMER Bringuet, Nella C, RN Active * Do you have difficulty dressing or bathing? Answer Date of Assessment Author Status No 07/30/2020 10:46 PM SAMPLE STEAMER Nella Le RN Active * Because of [...] Type Department Care Team (Late st [facility] Info) Description 09/25/2024 11:30 AM SAMPLE STEAMER Appointment [facility] [address] [place] [address] Roberta Alex MD [address] [place] [address] 09/25/2024 11:40 AM SAMPLE STEAMER Office Visit [facility] [address] [place] [address] Roberta Alex MD [address] [place] [address] documented as of this encounter Results * (ABNORMAL) CBC W/DIFF AUTOMATED (10/18/2023 12:13 PM CDT) [facility] WBC 8.17 4.00 - 10.80 x10'3/uL 10/18/2023 12:[address] [facility] RBC 4.69 4.10 - 5.40 x10'6/uL 10/18/2023 12:[address] [facility] HGB 13.3 12.0 - 16.0 G/DL 10/18/2023 12:[address] [facility] HCT 41.8 36.0 - 47.0 % 10/18/2023 12:[address] [facility] MCV 89.1 78.0 - 100.0 FL 10/18/2023 12:[address] [facility] MCH 28.4 27.0 - 31.0 PG 10/18/2023 12:[address] [facility] MCHC 31.8(L) 33.0 - 36.0 G/DL 10/18/2023 12:[address] [facility] RDW 12.7 11.5 - 14.5 % 10/18/2023 12:[address] [facility] PLT 33(L) 150 - 350 x10'3/uL 10/18/2023 12:[address] [facility] MPV RESULTS NOT AVAILABLE 7.4 - 10.4 FL 10/18/2023 12:[address] [facility] CBC COMMENT NORMAL REFERENCE RANGE NOT ESTABLISHED FOR THE PROPORTIONAL LEUKOCYTE DIFFERENTIAL. 10/18/2023 12:[address] [facility] NEUTROPHILS % 65.0 % 10/18/2023 12:[address] [facility] LYMPHOCYTES % 22.3 % 10/18/2023 12:[address] [facility] MONOCYTES % 5.0 % 10/18/2023 12:[address] [facility] EOSINOPHILS % 6.5 % 10/18/2023 12:[address] [facility] BASOPHILS % 1.0 % 10/18/2023 12:[address] [facility] IMMATURE GRANS % 0.2 % 10/18/19 12:[address] [facility] NRBC 0.0 % 10/18/2023 12:[address] [facility] ABS. NEUTROPHILS 5.31 1.60 - 8.30 x10'3/uL 10/18/2023 12:[address] [facility] ABS. LYMPHOCYTES 1.82 0.80 - 4.70 x10'3/uL 10/18/2023 12:[address] [facility] ABS. MONOCYTES 0.41 0.00 - 1.50 x10'3/uL 10/18/2023 12:[address] [facility] ABS. EOSINOPHILS 0.53(H) 0.00 - 0.40 x10'3/uL 10/18/2023 12:[address] [facility] ABS. BASOPHILS 0.08 0.00 - 0.20 x10'3/uL 10/18/2023 12:[address] [facility] ABS. IMMATURE GRANULOCYTES 0.02 0.00 - 0.03 x10'3/uL 10/18/2023 12:[address] [facility] ABS. NUCLEATED RBC'S 0.00 0.00 x10'3/uL 10/18/2023 12:[address] [facility] PLT MORPH. DECREASED 10/18/2023 12:[address] [facility] RBC MORPHOLOGY NORMAL 10/18/2023 12:[address] [facility] 10/18/2023 12:1 3 PM CDT Roberta Alex MD LABORATORY Final Result [facility] [address] [place] [address], documented in this encounter Visit Diagnoses Diagnosis Thrombocytopenia (CMS/HCC)- Primary Thrombocytopenia, unspecified documented in this encounter Additional Health Concerns Infection Onset Date Last Indicated Resolved Time MRSA 06/05/2021 06/05/2021 documented as of this encounter Care Teams Tracer Lathe Set Up Operator Relationship Specialty Start Date End Date Alejandro Blevins MD PCP - General FAMILY PRACTICE 12/10/19 documented as of this encounter
--- OUTSIDE RECORDS SUMMARY | 2024-07-11 09:50 | XMS_ITS | Encounter Summary ---
Author Organization [facility] [place] [facility] Address [facility] [address] [place] [address] Care Team Providers Care Processing Analyst Name Role Phone Alejandro Blevins MD Primary Care Provider [phone] Encounter Details Date Type Department Care Team (Late st Contact Info) Description 12/06/2023 Orders Only [address] [place] [address] Carey Pang, APNP [address] [place] [phone] Social History Tobacco Use Types Packs/Day Years Used Date Smoking Tobacco: Every Day Cigarettes Smokeless Tobacco: Never Alcohol Use Standard Drinks/Week Comments Not Currently 0 (1 standard drink = 0.6 oz pur e alcohol) Comments No Sex and Gender Information Value Date Recorded Sex Assigned at Not on file Legal Sex Female 11:30 PM COLLET GLUER Gender Identity Female 11/10/2021 3:09 PM CDT Sexual Orientation Straight 11/10/2021 3: 09 PM CDT documented as of this encounter Functional Status * RETIRED Are you deaf or do you have serious difficulty hearing Answer Date of Assessment Author Status No 07/30/2020 10:48 PM COLLET GLUER Acti ve * RETIRED Are you blind or do you have serious difficulty seeing, even when wearing glasses? Answer Date of Assessment Author Status No 07/30/2020 10:46 PM COLLET GLUER Acti ve * Do you have serious difficulty walking or climbing stairs? Answer Date of Assessment Author Status No 07/30/2020 10:46 PM COLLET GLUER Nella Le RN Active * Do you have difficulty dressing or bathing? Answer Date of Assessment Author Status No 07/30/2020 10:46 PM COLLET GLUER Nella Le RN Active * Because of [...] Date Author Status No 07/30/2020 10:46 PM COLLET GLUER Nella Le RN Active documented in this encounter Plan of Treatment Upcoming Encounters Date Type Department Care Team (Late st Contact Info) Description 09/25/2024 11:30 AM COLLET GLUER Appointment [facility] [address] [place] [address] Roberta Alex MD [address] [place] [address] 09/25/2024 11:40 AM COLLET GLUER Office Visit [facility] [place] [address] Roberta Alex MD [address] [place] [address] documented as of this encounter Results * (ABNORMAL) COMPREHENSIVE METABOLIC PANEL (03/19/2024 10:51 AM CDT) [facility] SODIUM S/P/B 138 136 - 145 MMOL/L 03/19/2024 11:12 AM CDT [facility] POTASSIUM S/P/B 3.7 3.5 - 5.1 MMOL/L 03/19/2024 11:12 AM CDT [facility] CHLORIDE S/P/B 104 98 - 107 MMOL/L 03/19/2024 11:12 AM CDT [facility] CO2 26.5 21.0 - 32.0 MMOL/L 03/19/2024 11:12 AM [facility] GLUCOSE 144(H) 70 - 99 MG/DL 03/19/2024 11:12 AM [facility] Comment: FASTING GLUCOSE 100 TO 125 MG/DL IS CONSISTENT WITH IMPAIRED FASTING GLUCOSE. FASTING GLUCOSE >125 MG/DL IS CONSISTENT WITH DIABETES. RANDOM GLUCOSE >200 MG/DL WITH HYPERGLYCEMIC SYMPTOMS IS CONSISTENT WITH DIABETES. PER ADA GUIDELINES BUN 14 6 - 24 MG/DL 03/19/2024 11:12 AM [facility] CREATININE S/P/B 0.85 0.55 - 1.02 MG/DL 03/19/2024 11:12 AM [facility] CALCIUM S/P/B 8.7 8.4 - 10.5 MG/DL 03/19/2024 11:12 AM [facility] BILIRUBIN TOTAL S/P/B 0.3 0.2 - 1.0 MG/DL 03/19/2024 11:12 AM [facility] Comment: THIS ASSAY IS NOT RECOMMENDED FOR PATIENTS UNDERGOING TREATMENT WITH ELTROMBOPAG DUE TO THE POTENTIAL FOR FALSELY ELEVATED RESULTS. ALKALINE PHOSPHATASE S/P/B 83 37 - 98 U/L 03/19/2024 11:12 AM [facility] AST 21 15 - 37 U/L 03/19/2024 11:12 AM [facility] ALT 33 14 - 59 U/L 03/19/2024 11:12 AM [facility] TOTAL PROTEIN S/P/B 7.3 6.4 - 8.2 G/DL 03/19/2024 11:12 AM [facility] ALBUMIN S/P/B 3.8 3.4 - 5.0 G/DL 03/19/2024 11:12 AM [facility] ANION GAP 7.5 5.0 - 15.0 MMOL/L 03/19/2024 11:12 AM [facility] OSMOLALITY (CALC) 289 MOSM/KG 024 11:12 AM [facility] Comment:REFERENCE RANGE NOT ESTABLISHED GFR ESTIMATE >90 >89 ML/MIN/1. 73 M2 03/19/2024 11:12 AM CDT [facility] GFR NOTES GFR REFERENCE S: 03/19/2024 11:12 AM CDT [facility] Comment: THE ESTIMATED GFR IS CALCULATED [...] CDT Carey CASTELLANOS [facility]AT[facility] Final Res ult [facility] [address] [place] [address], * (ABNORMAL) CBC W/DIFF AUTOMATED (03/19/2024 10:51 AM CDT) WBC 10.37 4.00 - 10.80 x10'3/uL 03/19/2024 11:01 AM CDT [facility] RBC 4.62 4.10 - 5.40 x10'6/uL 03/19/2024 11:01 AM CDT [facility] HGB 13.0 12.0 - 16.0 G/DL 03/19/2024 11:01 AM CDT [facility] HCT 40.5 36.0 - 47.0 % 03/19/2024 11:01 AM CDT [facility] MCV 87.7 78.0 - 100.0 FL 03/19/2024 11:01 AM CDT [facility] MCH 28.1 27.0 - 31.0 PG 03/19/2024 11:01 AM CDT [facility] MCHC 32.1(L) 33.0 - 36.0 G/DL 03/19/2024 11:01 AM CDT [facility] RDW 13.2 11.5 - 14.5 % 03/19/2024 11:01 AM CDT [facility] PLT 144(L) 150 - 350 x10'3/uL 03/19/2024 11:01 AM CDT [facility] MPV 13.8(H) 7.4 - 10.4 FL 03/19/2024 11:01 AM CDT [facility] CBC COMMENT NORMAL REFERENCE RANGE NOT ESTABLISHED FOR THE PROPORTIONAL LEUKOCYTE DIFFERENTIAL. 03/19/2024 11:01 AM CDT [facility] NEUTROPHILS % 72.9 % 03/19/2024 11:01 AM T [facility] LYMPHOCYTES % 16.4 % 03/19/2024 11:01 AM CDT [facility] MONOCYTES % 5.6 % 03/19/2024 11:01 AM CDT [facility] EOSINOPHILS % 4.3 % 03/19/2024 11:01 AM CDT [facility] BASOPHILS % 0.6 % 03/19/2024 11:01 AM CDT [facility] IMMATURE GRANS % 0.2 % 03/19/20 11:01 AM CDT [facility] NRBC 0.0 % 03/19/2024 11:01 AM CDT [facility] ABS. NEUTROPHILS 7.56 1.60 - 8.30 x10'3/uL 03/19/2024 11:01 AM CDT [facility] ABS. LYMPHOCYTES 1.70 0.80 - 4.70 x10'3/uL 03/19/2024 11:01 AM CDT [facility] ABS. MONOCYTES 0.58 0.00 - 1.50 x10'3/uL 03/19/2024 11:01 AM CDT [facility] ABS. EOSINOPHILS 0.45(H) 0.00 - 0.40 x10'3/uL 03/19/2024 11:01 AM CDT [facility] ABS. BASOPHILS 0.06 0.00 - 0.20 x10'3/uL 03/19/2024 11:01 AM CDT [facility] ABS. IMMATURE GRANULOCYTES 0.02 0.00 - 0.03 x10'3/uL 03/19/2024 11:01 AM CDT [facility] ABS. NUCLEATED RBC'S 0.00 0.00 - 0.01 x10'3/uL 03/19/2024 11:01 AM CDT [facility] 03/19/2024 10:5 1 AM CDT us Carey CASTELLANOS [facility] Final Res ult [facility] [address] [place] [address], documented in this encounter Visit Diagnoses Diagnosis Thrombocytopenia (CMS/HCC)- Primary Thrombocytopenia, unspecified documented in this encounter Additional Health Concerns Infection Onset Date Last Indicated Resolved Time MRSA 06/05/2021 06/05/2021 documented as of this encounter Care Teams Processing Analyst Relationship Specialty Start Date End Date Alejandro Blevins MD PCP - General FAMILY PRACTICE 12/10/19 documented as of this encounter
--- OUTSIDE RECORDS SUMMARY | 2024-07-11 09:50 | XMS_ITS | Encounter Summary ---
Author Organization [facility] Address [address] [place] [address]. 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 Answer Date of Assessment Author Status No 07/30/2020 10:46 PM ELECTRONIC INSTALLER Acti ve * Do you have [...] has an appointment coming up with her supervisor phosphoric acid in [place]. She has mild allergy related cough. She [...] st Contact Info) Description 09/25/2024 11:30 AM ELECTRONIC INSTALLER Appointment [place] [phone] [place] [address] Roberta Alex MD [address] [place] [address] 09/25/2024 11:40 AM ELECTRONIC INSTALLER Office Visit [facility] [address] [place] [address] Roberta Alex MD [address] [place] [address] documented as of this encounter Visit Diagnoses Diagnosis Chronic ITP (idiopathic thrombocytopenia) (CMS/HCC HHS/HCC)- Primary Immune thrombocytopenic purpura documented in this encounter Additional Health Concerns Infection Onset Date Last Indicated Resolved Time MRSA 06/05/2021 06/05/2021 documented as of this encounter Care Teams Pest Control Service Technician Relationship Specialty Start Date End Date Alejandro Blevins MD PCP - General FAMILY PRACTICE 12/10/19 documented as of this encounter
--- OUTSIDE RECORDS SUMMARY | 2024-07-11 09:50 | XMS_ITS | Encounter Summary ---
Author Organization [facility] Address [address] [place] [address]. [place] [address] [place] [address] Care Team Providers Care Engineering Mgr Name Role Phone Alejandro Blevins MD Primary Care Provider [phone] Encounter Details Date Type Department Care Team (Latest Contact Info) Description 06/19/2024 10:20 AM MANAGER DATA WAREHOUSING - 06/19/2024 11:59 PM [facility] Hospital Encounter [address] [place] [address] Roberta Alex MD [address] [place] [address] Discharge Disposition: Home or Self Care (Routine Discharge) Social History Tobacco Use Types Packs/Day Years Used Date Smoking Tobacco: Every Day Cigarettes Smokeless Tobacco: Never Alcohol Use Standard Drinks/Week Comments Not Currently 0 (1 standard drink = 0.6 oz pur e alcohol) Comments No Sex and Gender Information Value Date Recorded Sex Assigned at Not on file Legal Sex Female 11:30 PM MANAGER DATA WAREHOUSING Gender Identity Female 11/10/2021 3:09 PM CDT Sexual Orientation Straight 11/10/2021 3: 09 PM CDT documented as of this encounter Functional Status * RETIRED Are you deaf or do you have serious difficulty hearing Answer Date of Assessment Author Status No 07/30/2020 10:48 PM MANAGER DATA WAREHOUSING Acti ve * RETIRED Are you blind or do you have serious difficulty seeing, even when wearing glasses? Answer Date of Assessment Author Status No 07/30/2020 10:46 PM MANAGER DATA WAREHOUSING Acti ve * Do you have serious [...] Contact Info) Description 09/25/2024 11:30 AM MANAGER DATA WAREHOUSING Appointment [facility] [address] [place] [address] Roberta Alex MD [address] [place], [place] [id number] 09/25/2024 11:40 AM MANAGER DATA WAREHOUSING Office Visit [facility] [address] [place] [address] Roberta Alex MD [address] [place] [id number] documented as of this encounter Procedures Procedure Name Priority Date/Time Associated Diagnosis Comments CBC W/DIFF AUTOMATED Routine 06/19/2024 10:40 AM MANAGER DATA WAREHOUSING Thrombocytopenia (CMS/HCC) documented in this encounter Results * (ABNORMAL) CBC W/DIFF AUTOMATED (06/19/2024 10:40 AM MANAGER DATA WAREHOUSING) WBC 8.99 4.00 - 10.80 x10'3/uL 06/19/2024 10:55 AM MANAGER DATA WAREHOUSING [facility] RBC 4.87 4.10 - 5.40 x10'6/uL 06/19/2024 10:55 AM MANAGER DATA WAREHOUSING [facility] HGB 14.1 12.0 - 16.0 G/DL 06/19/2024 10:55 AM MANAGER DATA WAREHOUSING [facility] HCT 43.5 36.0 - 47.0 % 06/19/2024 10:55 AM MANAGER DATA WAREHOUSING [facility] MCV 89.3 78.0 - 100.0 FL 06/19/2024 10:55 AM MANAGER DATA WAREHOUSING [facility] MCH 29.0 27.0 - 31.0 PG 06/19/2024 10:55 AM MANAGER DATA WAREHOUSING [facility] MCHC 32.4(L) 33.0 - 36.0 G/DL 06/19/2024 10:55 AM [facility] RDW 13.9 11.5 - 14.5 % 06/19/2024 10:55 AM [facility] PLT 197 150 - 350 x10'3/uL 06/19/2024 10:55 AM [facility] MPV 13.0(H) 7.4 - 10.4 FL 06/19/2024 10:55 AM [facility] CBC COMMENT NORMAL REFERENCE RANGE NOT ESTABLISHED FOR THE PROPORTIONAL LEUKOCYTE DIFFERENTIAL. 06/19/2024 10:55 AM [facility] NEUTROPHILS % 60.3 % 06/19/2024 10:55 AM [facility] LYMPHOCYTES % 26.4 % 06/19/2024 10:55 AM [facility] MONOCYTES % 5.9 % 06/19/2024 10:55 AM [facility] EOSINOPHILS % 6.3 % 06/19/2024 10:55 AM [facility] BASOPHILS % 0.9 % 06/19/2024 10:55 AM [facility] IMMATURE GRANS % 0.2 % 06/19/20 10:55 AM [facility] NRBC % 0.0 % 06/19/2024 10:55 AM [facility] ABS. NEUTROPHILS 5.42 1.60 - 8.30 x10'3/uL 06/19/2024 10:55 AM [facility] ABS. LYMPHOCYTES 2.37 0.80 - 4.70 x10'3/uL 06/19/2024 10:55 AM [facility] ABS. MONOCYTES 0.53 0.00 - 1.50 x10'3/uL 06/19/2024 10:55 AM [facility] ABS. EOSINOPHILS 0.57(H) 0.00 - 0.40 x10'3/uL 06/19/2024 10:55 AM [facility] ABS. BASOPHILS 0.08 0.00 - 0.20 x10'3/uL 06/19/2024 10:55 AM [facility] ABS. IMMATURE GRANULOCYTES 0.02 0.00 - 0.03 x10'3/uL 06/19/2024 10:55 AM MANAGER DATA WAREHOUSING [facility] ABS. NUCLEATED RBC'S 0.00 0.00 - 0.01 x10'3/uL 06/19/2024 10:55 AM MANAGER DATA WAREHOUSING [facility] 06/19/2024 10:4 0 AM MANAGER DATA WAREHOUSING us Roebrta Alex MD LABORATORY Final Result [facility] [address] [employer] [address] [phone] documented in this encounter Visit Diagnoses Diagnosis Thrombocytopenia (CMS/HCC) Thrombocytopenia, unspecified documented in this encounter Additional Health Concerns Infection Onset Date Last Indicated Resolved Time MRSA 06/05/2021 06/05/2021 documented as of this encounter Care Teams Engineering Mgr Relationship Specialty Start Date End Date Alejandro Blevins MD PCP - General FAMILY PRACTICE 12/10/19 documented as of this encounter
--- OUTSIDE RECORDS SUMMARY | 2024-07-11 09:50 | XMS_ITS | Encounter Summary ---
Author Organization [facility] Address [facility] [place] [address] [place] [address] Care Team Providers Care Script Developer Name Role Phone Alejandro Blevins MD Primary Care Provider [phone] Encounter Details Date Type Department Care Team (Late st Contact Info) Description 06/19/2024 Orders Only [address] [place] [address] Roberta Alex MD [address] [place] [address] Social History Tobacco Use Types Packs/Day Years Used Date Smoking Tobacco: Every Day Cigarettes Smokeless Tobacco: Never Alcohol Use Standard Drinks/Week Comments Not Currently 0 (1 standard drink = 0.6 oz pur e alcohol) Comments No Sex and Gender Information Value Date Recorded Sex Assigned at Not on file 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 Answer Date of Assessment Author Status No 07/30/2020 10:46 PM EXECUTIVE RECEPTIONIST Acti ve * Do you have serious difficulty walking or climbing stairs? Answer Date of Assessment Author Status No 07/30/2020 10:46 PM EXECUTIVE RECEPTIONIST Bringuet, Nella C, RN Active * Do [...] Date Type Department Care Team (Late st [facility] Info) Description 09/25/2024 11:30 AM EXECUTIVE RECEPTIONIST Appointment [facility] [address] [place] [address] Roberta Alex MD [address] [place] [address] 09/25/2024 11:40 AM EXECUTIVE RECEPTIONIST Office Visit [facility] [address] [place] [address] Roberta Alex MD [address] [place] [address] Scheduled Orders Name Type Priority Associated Diagnoses Orde r Schedule CBC W/DIFF AUTOMATED Lab Routine Thrombocytopenia ([facility]/HCC) Expected: 09/25/2024, Expires: 06/19/2025 COMPREHENSIVE METABOLIC PANEL Lab Routine Thrombocytopenia (CMS/HCC) Expected: 09/25/2024, Expires: 06/19/2025 documented as of this encounter Visit Diagnoses Diagnosis Thrombocytopenia (CMS/HCC)- Primary Thrombocytopenia, unspecified documented in this encounter Additional Health Concerns Infection Onset Date Last Indicated Resolved Time MRSA 06/05/2021 06/05/2021 documented as of this encounter Care Teams Script Developer Relationship Specialty Start Date End Date Alejandro Blevins MD PCP - General FAMILY PRACTICE 12/10/19 documented as of this encounter
--- OUTSIDE RECORDS SUMMARY | 2024-07-11 09:50 | XMS_ITS | Encounter Summary ---
Author Organization [facility] Address [address] [place] [address]. 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 Answer Date of Assessment Author Status No 07/30/2020 10:46 PM BATCH MIXING TRUCK DRIVER Acti ve * Do you have serious difficulty walking or climbing stairs? Answer Date of Assessment Author Status No 07/30/2020 10:46 PM BATCH MIXING TRUCK DRIVER Nella Le RN Active * Do you have difficulty dressing or bathing? Answer Date of Assessment Author Status No 07/30/2020 10:46 PM BATCH MIXING TRUCK DRIVER Nella Le RN Active * Because of a physical, mental, or emotional condition, do you have difficulty doing errands alone such as visiting a doctor's office or shopping? Answer Date of Assessment Author Status No 07/30/2020 10:46 PM BATCH MIXING TRUCK DRIVER Nella Le RN Active documented as of this encounter Mental Status * Because of a physical, mental, or emotional condition, do you have serious difficulty concentrating, remembering, or making decisions? Answer Entry Date Author Status No 07/30/2020 10:46 PM BATCH MIXING TRUCK DRIVER Nella Le RN Active documented in this encounter Plan of Treatment Upcoming Encounters Date Type Department Care Team (Late st Contact Info) Description 09/25/2024 11:30 AM BATCH MIXING TRUCK DRIVER Appointment [facility] [address] [place] [address] Roberta Alex MD [address] [place] [address] 09/25/2024 11:40 AM BATCH MIXING TRUCK DRIVER Office Visit [facility] [address] [address] Roberta Alex MD [address] [place] [address] documented as of this encounter Visit Diagnoses Not on filedocumented in this encounter Additional Health Concerns Infection Onset Date Last Indicated Resolved Time MRSA 06/05/2021 06/05/2021 documented as of this encounter Care Teams Manager Operations And Procurement Relationship Specialty Start Date End Date Alejandro Blevins MD PCP - General FAMILY PRACTICE 12/10/19 documented as of this encounter
--- OUTSIDE RECORDS SUMMARY | 2024-07-11 09:50 | XMS_ITS | Encounter Summary ---
Author Organization [facility] Address [address] [place] [address]. [place] [address] [place] [address] Care Team Providers Care Siene Maker Name Role Phone Alejandro Blevins MD Primary Care Provider [phone] Encounter Details Date Type Department Care Team (Late st Contact Info) Description 11/25/2023 Orders Only [facility] [address] [place] [address] Pat Moya, SOCK MENDER [address] [place] [address] Social History Tobacco Use Types Packs/Day Years Used Date Smoking Tobacco: Every Day Cigarettes Smokeless Tobacco: Never Alcohol Use Standard Drinks/Week Comments Not Currently 0 (1 standard drink = 0.6 oz pur e alcohol) Comments No Sex and Gender Information Value Date Recorded Sex Assigned at Not on file Legal Sex Female 11:30 PM METALLURGY LABORATORY TECHNICIAN Gender Identity Female 11/10/2021 3:09 PM CDT Sexual Orientation Straight 11/10/2021 3: 09 PM CDT documented as of this encounter Functional Status * RETIRED Are you deaf or do you have serious difficulty hearing Answer Date of Assessment Author Status No 07/30/2020 10:48 PM METALLURGY LABORATORY TECHNICIAN Acti ve * RETIRED Are you blind or do you have serious difficulty seeing, even when wearing glasses? Answer Date of Assessment Author Status No 07/30/2020 10:46 PM METALLURGY LABORATORY TECHNICIAN Acti ve * Do you have serious difficulty walking or climbing stairs? Answer Date of Assessment Author Status No 07/30/2020 10:46 PM METALLURGY LABORATORY TECHNICIAN Nella Le RN Active * Do [...] st Contact Info) Description 09/25/2024 11:30 AM METALLURGY LABORATORY TECHNICIAN Appointment [facility] [address] [place] [address] Roberta Alex MD [address] [place] [address] 09/25/2024 11:40 AM METALLURGY LABORATORY TECHNICIAN Office Visit [facility] [address] [address] Roberta Alex MD [address] [place] [address] documented as of this encounter Results * ASSAY OF THYROID STIMULATING HORMONE TSH (11/25/2023 1:41 PM CDT) TSH 1.425 0.358 - 3.740 uIU/ML 11/25/2023 2:20 PM CDT [facility] Comment: ASSAY PERFORMED BY CHEMILUMINESCENT IMMUNOASSAY METHODOLOGY USING SIEMENS DIMENSION REAGENT. PATIENT RESULTS DETERMINED BY ASSAYS FROM DIFFERENT MANUFACTURERS AND/OR BY DIFFERENT METHODS MAY NOT BE COMPARABLE. 11/25/2023 1:41 PM CDT Pat Moya NP LABORATORY Final Result [facility] [address] [place] [address], * (ABNORMAL) LIPID PANEL (11/25/2023 1:41 PM CDT) CHOLESTEROL 244 MG/DL 11/26/2023 4:45 PM CDT [facility] Comment:HIGH: > OR = 240 TRIGLYCERIDES 241 MG/DL 11/26/2023 4:45 PM CDT [facility] Comment:200-499 HIGH HDL 32(L) >49 MG/DL 11/26/2023 4:45 PM CDT [facility] LDL-C 164 MG/DL 11/26/2023 4:45 PM CDT [facility] Comment:160-189 HIGH VLDL CALCULATION 48 MG/DL 11/26/19 4:45 PM CDT [facility] Comment:REFERENCE RANGE NOT ESTABLISHED CHOL/HDL RATIO 7.6 11/26/2023 4:45 PM CDT [facility] Comment:REFERENCE RANGE NOT ESTABLISHED LDL/HDL 5.1 11/26/2023 4:45 PM CDT [facility] Comment:REFERENCE RANGE NOT ESTABLISHED NON HDL CHOLESTEROL 212 MG/DL 11/26/2023 4:45 PM CDT [facility] Comment:REFERENCE RANGE NOT ESTABLISHED 11/25/2023 1:41 PM CDT Pat Moya NP LABORATORY Final Result [facility] [address] [place] [address], [place] [phone] * HEMOGLOBIN, GLYCOSYLATED (11/25/2023 1:41 PM CDT) Pathologist [facility] HGB A1C 5.4 <5.7 % 11/26/2023 4:31 PM CDT [facility] ESTIMATED AVG GLUCOSE 108 74 - 114 MG/DL 11/26/2023 4:31 PM CDT [facility] 11/25/2023 1:41 PM CDT Pat Moya NP LABORATORY Final Result [facility] [address] [place] [address], [id number] * COMPREHENSIVE METABOLIC PANEL (11/25/2023 1:41 PM CDT) SODIUM S/P/B 140 136 - 145 MMOL/L 11/25/2023 2:20 PM CDT [facility] POTASSIUM S/P/B 4.0 3.5 - 5.1 MMOL/L 11/25/2023 2:20 PM CDT [facility] CHLORIDE S/P/B 105 98 - 107 MMOL/L 11/25/2023 2:20 PM CDT [facility] CO2 24.9 21.0 - 32.0 MMOL/L 11/25/2023 2:20 PM CDT [facility] GLUCOSE 82 70 - 99 MG/DL 11/25/2023 2:20 PM CDT [facility] Comment: FASTING GLUCOSE 100 TO 125 MG/DL IS CONSISTENT WITH IMPAIRED FASTING GLUCOSE. FASTING GLUCOSE >125 MG/DL IS CONSISTENT WITH DIABETES. RANDOM GLUCOSE >200 MG/DL WITH HYPERGLYCEMIC SYMPTOMS IS CONSISTENT WITH DIABETES. PER ADA GUIDELINES BUN 14 6 - 24 MG/DL 11/25/2023 2:20 PM CDT [facility] CREATININE S/P/B 0.75 0.55 - 1.02 MG/DL 11/25/2023 2:20 PM CDT [facility] CALCIUM S/P/B 8.6 8.4 - 10.5 MG/DL 11/25/2023 2:20 PM CDT [facility] BILIRUBIN TOTAL S/P/B 0.2 0.2 - 1.0 MG/DL 11/25/2023 2:20 PM CDT [facility] Comment: THIS ASSAY IS NOT RECOMMENDED FOR PATIENTS UNDERGOING TREATMENT WITH ELTROMBOPAG DUE TO THE POTENTIAL FOR FALSELY ELEVATED RESULTS. ALKALINE PHOSPHATASE S/P/B 69 37 - 98 U/L 11/25/2023 2:20 PM CDT [facility] AST 19 15 - 37 U/L 11/25/2023 2:20 PM CDT [facility] ALT 20 14 - 59 U/L 11/25/2023 2:20 PM CDT [facility] TOTAL PROTEIN S/P/B 6.9 6.4 - 8.2 G/DL 11/25/2023 2:20 PM CDT [facility] ALBUMIN S/P/B 3.5 3.4 - 5.0 G/DL 11/25/2023 2:20 PM CDT [facility] ANION GAP 10.1 5.0 - 15.0 MMOL/L 11/25/2023 2:20 PM CDT [facility] OSMOLALITY (CALC) 290 MOSM/KG 024 2:20 PM CDT [facility] Comment:REFERENCE RANGE NOT ESTABLISHED GFR ESTIMATE >90 >89 ML/MIN/1. 73 M2 11/25/2023 2:20 PM CDT [facility] GFR NOTES GFR REFERENCE S: 11/25/2023 2:20 PM CDT [facility] Comment: THE ESTIMATED GFR [...] us Pat Moya NP LABORATORY Final Result [facility] [address] [place], [place] [address] [phone] documented in this encounter Visit Diagnoses Diagnosis Other correction (current) drug therapy- Primary documented in this encounter Additional Health Concerns Infection Onset Date Last Indicated Resolved Time MRSA 06/05/2021 06/05/2021 documented as of this encounter Care Teams Siene Maker Relationship Specialty Start Date End Date Alejandro Blevins MD PCP - General FAMILY PRACTICE 12/10/19 documented as of this encounter
--- OUTSIDE RECORDS SUMMARY | 2024-07-11 09:50 | XMS_ITS | Encounter Summary ---
Author Organization [facility] Address [facility] [place] [address] [place] [address] Care Team Providers Care Hooking Machine Operator Name Role Phone Alejandro Blevins MD Primary Care Provider [phone] Encounter Details Date Type Department Care Team (Late st Contact Info) Description 03/06/2024 Orders Only [address] [place] [address] Roberta Alex MD [address] [place] [address] Social History Tobacco Use Types Packs/Day Years Used Date Smoking Tobacco: Every Day Cigarettes Smokeless Tobacco: Never Alcohol Use Standard Drinks/Week Comments Not Currently 0 (1 standard drink = 0.6 oz pur e alcohol) Comments No Sex and Gender Information Value Date Recorded Sex Assigned at Not on file Legal Sex Female 11:30 PM REWIND OPERATOR Gender Identity Female 11/10/2021 3:09 PM CDT Sexual Orientation Straight 11/10/2021 3: 09 PM CDT documented as of this encounter Functional Status * RETIRED Are you deaf or do you have serious difficulty hearing Answer Date of Assessment Author Status No 07/30/2020 10:48 PM REWIND OPERATOR Acti ve * RETIRED Are you blind or do you have serious difficulty seeing, even when wearing glasses? Answer Date of Assessment Author Status No 07/30/2020 10:46 PM REWIND OPERATOR Acti ve * Do you have serious difficulty walking or climbing stairs? Answer Date of Assessment Author Status No 07/30/2020 10:46 PM REWIND OPERATOR Bringuet, Nella C, RN Active * Do you have difficulty dressing or bathing? Answer Date of Assessment Author Status No 07/30/2020 10:46 PM REWIND OPERATOR Nella Le RN Active * Because [...] st Contact Info) Description 09/25/2024 11:30 AM REWIND OPERATOR Appointment [facility] [address] [place] [address] Roberta Alex MD [address] [place] [address] 09/25/2024 11:40 AM REWIND OPERATOR Office Visit [facility] [address] [place] [address] Roberta Alex MD [address] [place] [address] documented as of this encounter Results * (ABNORMAL) CBC W/DIFF AUTOMATED (03/06/2024 3:59 PM CDT) [facility] WBC 9.49 4.00 - 10.80 x10'3/uL 03/06/2024 4:21 PM CDT [facility] RBC 4.94 4.10 - 5.40 x10'6/uL 03/06/2024 4:21 PM CDT [facility] HGB 13.9 12.0 - 16.0 G/DL 03/06/2024 4:21 PM CDT [facility] HCT 42.8 36.0 - 47.0 % 03/06/2024 4:21 PM CDT [facility] MCV 86.6 78.0 - 100.0 FL 03/06/2024 4:21 PM CDT [facility] MCH 28.1 27.0 - 31.0 PG 03/06/2024 4:21 PM CDT [facility] MCHC 32.5(L) 33.0 - 36.0 G/DL 03/06/2024 4:21 PM CDT [facility] RDW 13.0 11.5 - 14.5 % 03/06/2024 4:21 PM CDT [facility] PLT 34(L) 150 - 350 x10'3/uL 03/06/2024 4:21 PM CDT [facility] MPV RESULTS NOT AVAILABLE 7.4 - 10.4 FL 03/06/2024 4:21 PM CDT [facility] CBC COMMENT NORMAL REFERENCE RANGE NOT ESTABLISHED FOR THE PROPORTIONAL LEUKOCYTE DIFFERENTIAL. 03/06/2024 4:21 PM CDT [facility] NEUTROPHILS % 69.4 % 03/06/2024 4:30 PM CDT [facility] LYMPHOCYTES % 20.9 % 03/06/2024 4:30 PM CDT [facility] MONOCYTES % 4.3 % 03/06/2024 4:30 PM CDT [facility] EOSINOPHILS % 4.1 % 03/06/2024 4:30 PM CDT [facility] BASOPHILS % 1.1 % 03/06/2024 4:30 PM CDT [facility] IMMATURE GRANS % 0.2 % 03/06/20 4:30 PM CDT [facility] NRBC 0.0 % 03/06/2024 4:30 PM CDT [facility] ABS. NEUTROPHILS 6.59 1.60 - 8.30 x10'3/uL 03/06/2024 4:30 PM CDT [facility] ABS. LYMPHOCYTES 1.98 0.80 - 4.70 x10'3/uL 03/06/2024 4:30 PM CDT [facility] ABS. MONOCYTES 0.41 0.00 - 1.50 x10'3/uL 03/06/2024 4:30 PM CDT [facility] ABS. EOSINOPHILS 0.39 0.00 - 0.40 x10'3/uL 03/06/2024 4:30 PM CDT [facility] ABS. BASOPHILS 0.10 0.00 - 0.20 x10'3/uL 03/06/2024 4:30 PM CDT [facility] ABS. IMMATURE GRANULOCYTES 0.02 0.00 - 0.03 x10'3/uL 03/06/2024 4:30 PM CDT [facility] ABS. NUCLEATED RBC'S 0.00 0.00 - 0.01 x10'3/uL 03/06/2024 4:30 PM CDT [facility] PLT MORPH. DECREASED 03/06/2024 4:30 PM CDT [facility] RBC MORPHOLOGY 1+ 03/06/2024 4:30 PM CDT [facility] Comment: ANISOCYTOSIS 1+ POIKILOCYTOSIS 1+ MICROCYTES 03/06/2024 3:59 PM CDT Roberta Alex MD LABORATORY Final Result [facility] [address] [place] [address], documented in this encounter Visit Diagnoses Diagnosis Acute ITP ([facility])- Primary Immune thrombocytopenic purpura documented in this encounter Additional Health Concerns Infection Onset Date Last Indicated Resolved Time MRSA 06/05/2021 06/05/2021 documented as of this encounter Care Teams Hooking Machine Operator Relationship Specialty Start Date End Date Alejandro Blevins MD PCP - General FAMILY PRACTICE 12/10/19 documented as of this encounter
--- OUTSIDE RECORDS SUMMARY | 2024-07-11 09:50 | XMS_ITS | Encounter Summary ---
Author Organization [facility] Address [facility] [place] [address] [place] [address] Care Team Providers Care Home Health Scheduler Name Role Phone Alejandro Blevins MD Primary Care Provider [phone] Encounter Details Date Type Department Care Team (Latest Contact Info) Description 03/19/2024 10:41 AM CDT - 03/19/2024 11:59 PM CDT Hospital Encounter [address] [place] [address] Roberta Alex MD [address] [place] [address] Discharge Disposition: Home or Self Care (Routine Discharge) Social History Tobacco Use Types Packs/Day Years Used Date Smoking Tobacco: Every Day Cigarettes Smokeless Tobacco: Never Alcohol Use Standard Drinks/Week Comments Not Currently 0 (1 standard drink = 0.6 oz pur e alcohol) Comments No Sex and Gender Information Value Date Recorded Sex Assigned at Not on file Legal Sex Female 11:30 PM VISION CARE ASSOCIATE Gender Identity Female 11/10/2021 3:09 PM CDT Sexual Orientation Straight 11/10/2021 3: 09 PM CDT documented as of this encounter Functional Status * RETIRED Are you deaf or do you have serious difficulty hearing Answer Date of Assessment Author Status No 07/30/2020 10:48 PM VISION CARE ASSOCIATE Acti ve * RETIRED Are you blind or do you have serious difficulty seeing, even when wearing glasses? Answer Date of Assessment Author Status No 07/30/2020 10:46 PM VISION CARE ASSOCIATE Acti ve * Do you have serious [...] st Contact Info) Description 09/25/2024 11:30 AM VISION CARE ASSOCIATE Appointment [facility] [address] [place] [address] Roberta Alex MD [address] [place] [address] 09/25/2024 11:40 AM VISION CARE ASSOCIATE Office Visit [facility] [address] [place] [address] Roberta Alex MD [address] [place] [address] [id number] documented as of this encounter Procedures Procedure Name Priority Date/Time Associated Diagnosis Comments COMPREHENSIVE METABOLIC PANEL Routine 03/19/2024 10:51 AM CDT Thrombocytopenia (CMS/HCC) CBC W/DIFF AUTOMATED Routine 03/19/2024 10:51 AM CDT Thrombocytopenia (CMS/HCC) documented in this encounter Results * (ABNORMAL) COMPREHENSIVE METABOLIC PANEL (03/19/2024 10:51 AM CDT) SODIUM S/P/B 138 136 - 145 MMOL/L 03/19/2024 11:12 AM CDT [facility] POTASSIUM S/P/B 3.7 3.5 - 5.1 MMOL/L 03/19/2024 11:12 AM CDT [facility] CHLORIDE S/P/B 104 98 - 107 MMOL/L 03/19/2024 11:12 AM CDT [facility] CO2 26.5 21.0 - 32.0 MMOL/L 03/19/2024 11:12 AM [facility] GLUCOSE 144(H) 70 - 99 MG/DL 03/19/2024 11:12 AM [facility] Comment: FASTING GLUCOSE 100 TO 125 MG/DL IS CONSISTENT WITH IMPAIRED FASTING GLUCOSE. FASTING GLUCOSE >125 MG/DL IS CONSISTENT WITH DIABETES. RANDOM GLUCOSE >200 MG/DL WITH HYPERGLYCEMIC SYMPTOMS IS CONSISTENT WITH DIABETES. PER ADA GUIDELINES BUN 14 6 - 24 MG/DL 03/19/2024 11:12 AM [facility] CREATININE S/P/B 0.85 0.55 - 1.02 MG/DL 03/19/2024 11:12 AM [facility] CALCIUM S/P/B 8.7 8.4 - 10.5 MG/DL 03/19/2024 11:12 AM [facility] BILIRUBIN TOTAL S/P/B 0.3 0.2 - 1.0 MG/DL 03/19/2024 11:12 AM [facility] Comment: THIS ASSAY IS NOT RECOMMENDED FOR PATIENTS UNDERGOING TREATMENT WITH ELTROMBOPAG DUE TO THE POTENTIAL FOR FALSELY ELEVATED RESULTS. ALKALINE PHOSPHATASE S/P/B 83 37 - 98 U/L 03/19/2024 11:12 AM [facility] AST 21 15 - 37 U/L 03/19/2024 11:12 AM [facility] ALT 33 14 - 59 U/L 03/19/2024 11:12 AM [facility] TOTAL PROTEIN S/P/B 7.3 6.4 - 8.2 G/DL 03/19/2024 11:12 AM [facility] ALBUMIN S/P/B 3.8 3.4 - 5.0 G/DL 03/19/2024 11:12 AM [facility] ANION GAP 7.5 5.0 - 15.0 MMOL/L 03/19/2024 11:12 AM [facility] OSMOLALITY (CALC) 289 MOSM/KG 024 11:12 AM [facility] Comment:REFERENCE RANGE NOT ESTABLISHED GFR ESTIMATE >90 >89 ML/MIN/1. 73 M2 03/19/2024 11:12 AM CDT [facility] GFR NOTES GFR REFERENCE S: 03/19/2024 11:12 AM CDT [facility] Comment: THE ESTIMATED GFR [...] CDT Carey [facility] Final Res ult [facility] [address] [place] [address], * (ABNORMAL) CBC W/DIFF AUTOMATED (03/19/2024 10:51 AM CDT) WBC 10.37 4.00 - 10.80 x10'3/uL 03/19/2024 11:01 AM CDT [facility] RBC 4.62 4.10 - 5.40 x10'6/uL 03/19/2024 11:01 AM CDT [facility] HGB 13.0 12.0 - 16.0 G/DL 03/19/2024 11:01 AM CDT [facility] HCT 40.5 36.0 - 47.0 % 03/19/2024 11:01 AM CDT [facility] MCV 87.7 78.0 - 100.0 FL 03/19/2024 11:01 AM CDT [facility] MCH 28.1 27.0 - 31.0 PG 03/19/2024 11:01 AM CDT [facility] MCHC 32.1(L) 33.0 - 36.0 G/DL 03/19/2024 11:01 AM CDT [facility] RDW 13.2 11.5 - 14.5 % 03/19/2024 11:01 AM CDT [facility] PLT 144(L) 150 - 350 x10'3/uL 03/19/2024 11:01 AM CDT [facility] MPV 13.8(H) 7.4 - 10.4 FL 03/19/2024 11:01 AM CDT [facility] CBC COMMENT NORMAL REFERENCE RANGE NOT ESTABLISHED FOR THE PROPORTIONAL LEUKOCYTE DIFFERENTIAL. 03/19/2024 11:01 AM CDT [facility] NEUTROPHILS % 72.9 % 03/19/2024 11:01 AM T [facility] LYMPHOCYTES % 16.4 % 03/19/2024 11:01 AM CDT [facility] MONOCYTES % 5.6 % 03/19/2024 11:01 AM CDT [facility] EOSINOPHILS % 4.3 % 03/19/2024 11:01 AM CDT [facility] BASOPHILS % 0.6 % 03/19/2024 11:01 AM CDT [facility] IMMATURE GRANS % 0.2 % 03/19/20 11:01 AM CDT [facility] NRBC 0.0 % 03/19/2024 11:01 AM CDT [facility] ABS. NEUTROPHILS 7.56 1.60 - 8.30 x10'3/uL 03/19/2024 11:01 AM CDT [facility] ABS. LYMPHOCYTES 1.70 0.80 - 4.70 x10'3/uL 03/19/2024 11:01 AM CDT [facility] ABS. MONOCYTES 0.58 0.00 - 1.50 x10'3/uL 03/19/2024 11:01 AM CDT [facility] ABS. EOSINOPHILS 0.45(H) 0.00 - 0.40 x10'3/uL 03/19/2024 11:01 AM CDT [facility] ABS. BASOPHILS 0.06 0.00 - 0.20 x10'3/uL 03/19/2024 11:01 AM CDT [facility] ABS. IMMATURE GRANULOCYTES 0.02 0.00 - 0.03 x10'3/uL 03/19/2024 11:01 AM CDT [facility] ABS. NUCLEATED RBC'S 0.00 0.00 - 0.01 x10'3/uL 03/19/2024 11:01 AM CDT [facility] 03/19/2024 10:5 1 AM CDT us [facility] Final Res ult [facility] [address] [place] [address], documented in this encounter Visit Diagnoses Diagnosis Thrombocytopenia (CMS/HCC) Thrombocytopenia, unspecified documented in this encounter Additional Health Concerns Infection Onset Date Last Indicated Resolved Time MRSA 06/05/2021 06/05/2021 documented as of this encounter Care Teams Home Health Scheduler Relationship Specialty Start Date End Date Alejandro Blevins MD PCP - General FAMILY PRACTICE 12/10/19 documented as of this encounter
--- OUTSIDE RECORDS SUMMARY | 2024-07-11 09:50 | XMS_ITS | Encounter Summary ---
Author Organization [facility] Address [address] [place] [address]. [place] [address] [place] [address] Care Team Providers Care [place] Pathology Teacher Name Role Phone Alejandro Blevins MD Primary Care Provider [phone] Reason for Visit * Reason Onset Date Comments Medication Information 10/17/2023 Encounter Details Date Type Department Care Team ([facility] Contact Info) Description 10/17/[address] [place] [address] Roberta Alex MD [address] [place] [address] Medication Information Social History Tobacco Use Types Packs/Day Years Used Date Smoking Tobacco: Every Day Cigarettes Smokeless Tobacco: Never Alcohol Use Standard Drinks/Week Comments Not Currently 0 (1 standard drink = 0.6 oz pur e alcohol) Comments No Sex and Gender Information Value Date Recorded Sex Assigned at Not on file Legal Sex Female 11:30 PM RIB MATCHER AND FITTER Gender Identity Female 11/10/2021 3:09 PM CDT Sexual Orientation Straight 11/10/2021 3: 09 PM CDT documented as of this encounter Functional Status * RETIRED Are you deaf or do you have serious difficulty hearing Answer Date of Assessment Author Status No 07/30/2020 10:48 PM RIB MATCHER AND FITTER Acti ve * RETIRED Are you blind or do you have serious difficulty seeing, even when wearing glasses? Answer Date of Assessment Author Status No 07/30/2020 10:46 PM RIB MATCHER AND FITTER Acti ve * Do you have [...] st Contact Info) Description 09/25/2024 11:30 AM RIB MATCHER AND FITTER Appointment [facility] [place] [address] [address] [address] Roberta Alex MD [address] [place] [address] 09/25/2024 11:40 AM RIB MATCHER AND FITTER Office Visit [facility] [place] [address] Roberta Alex MD [address] [place] [address] documented as of this encounter Visit Diagnoses Not on filedocumented in this encounter Additional Health Concerns Infection Onset Date Last Indicated Resolved Time MRSA 06/05/2021 06/05/2021 documented as of this encounter Care Teams Forest Pathology Teacher Relationship Specialty Start Date End Date Alejandro Blevins MD PCP - General FAMILY PRACTICE 12/10/19 documented as of this encounter
--- OUTSIDE RECORDS SUMMARY | 2024-07-11 09:50 | XMS_ITS | Encounter Summary ---
Author Organization [facility] Address [address] [place] [address]. [place], [place] [address] [place] [address] Care Team Providers Care Career And Guidance Counselor Name Role Phone Alejandro Blevins MD [...] on file Legal Sex Female 11:30 PM COUNTY SHERIFF Gender Identity Female 11/10/2021 3:09 PM CDT Sexual Orientation Straight 11/10/2021 3: 09 PM CDT documented as of this encounter Functional Status * RETIRED Are you deaf or do you have serious difficulty hearing Answer Date of Assessment Author Status No 07/30/2020 10:48 PM COUNTY SHERIFF Acti ve * RETIRED Are you blind or do you have serious difficulty seeing, even when wearing glasses? Answer Date of Assessment Author Status No 07/30/2020 10:46 PM COUNTY SHERIFF Acti ve * Do you have serious difficulty walking or climbing stairs? Answer Date of Assessment Author Status No 07/30/2020 10:46 PM COUNTY SHERIFF Nella Le RN Active * Do you have difficulty dressing or bathing? Answer Date of Assessment Author Status No 07/30/2020 10:46 PM COUNTY SHERIFF Nella Le RN Active * Because of a physical, mental, or emotional condition, do you have difficulty doing errands alone such as visiting a doctor's office or shopping? Answer Date of Assessment Author Status No 07/30/2020 10:46 PM COUNTY SHERIFF Nella Le RN Active documented as of this encounter Mental Status * Because of a physical, mental, or emotional condition, do you have serious difficulty concentrating, remembering, or making decisions? Answer Entry Date Author Status No 07/30/2020 10:46 PM COUNTY SHERIFF Nella Le RN Active documented in this encounter Plan of Treatment Upcoming Encounters Date Type Department Care Team (Late st Contact Info) Description 09/25/2024 11:30 AM COUNTY SHERIFF Appointment [facility] [address] [facility] [place] [address] Roberta Alex MD [address] [place] [address] 09/25/2024 11:40 AM COUNTY SHERIFF Office Visit [facility] [address] [facility] [place] [address] Roberta Alex MD [address] [place] [address] documented as of this encounter Visit Diagnoses Not on filedocumented in this encounter Additional Health Concerns Infection Onset Date Last Indicated Resolved Time MRSA 06/05/2021 06/05/2021 documented as of this encounter Care Teams Career And Guidance Counselor Relationship Specialty Start Date End Date Alejandro Blevins MD PCP - General FAMILY PRACTICE 12/10/19 documented as of this encounter
--- OUTSIDE RECORDS SUMMARY | 2024-07-11 09:50 | XMS_ITS | Encounter Summary ---
Author Organization [facility] Address [address] [place] [address]. [place], [place] [address] [place] [address] Care Team Providers Care Recruiter Name Role Phone Alejandro Blevins MD Primary Care Provider [phone] Encounter Details Date Type Department Care Team [...] file Legal Sex Female 11:30 PM MACHINE CHOCOLATE MOLDER Gender Identity Female 11/10/2021 3:09 PM CDT Sexual Orientation Straight 11/10/2021 3: 09 PM CDT documented as of this encounter Functional Status * RETIRED Are you deaf or do you have serious difficulty hearing Answer Date of Assessment Author Status No 07/30/2020 10:48 PM MACHINE CHOCOLATE MOLDER Acti ve * RETIRED Are you blind or do you have serious difficulty seeing, even when wearing glasses? Answer Date of Assessment Author Status No 07/30/2020 10:46 PM MACHINE CHOCOLATE MOLDER Acti ve * Do you have serious difficulty walking or climbing stairs? Answer Date of Assessment Author Status No 07/30/2020 10:46 PM MACHINE CHOCOLATE MOLDER Nella Le RN Active * Do you have difficulty dressing or bathing? Answer Date of Assessment Author Status No 07/30/2020 10:46 PM MACHINE CHOCOLATE MOLDER Nella Le RN Active * Because of a physical, mental, or emotional condition, do you have difficulty doing errands alone such as visiting a doctor's office or shopping? Answer Date of Assessment Author Status No 07/30/2020 10:46 PM MACHINE CHOCOLATE MOLDER Nella Le RN Active documented as of this encounter Mental Status * Because of a physical, mental, or emotional condition, do you have serious difficulty concentrating, remembering, or making decisions? Answer Entry Date Author Status No 07/30/2020 10:46 PM MACHINE CHOCOLATE MOLDER Nella Le RN Active documented in this encounter Plan of Treatment Upcoming Encounters Date Type Department Care Team (Late st Contact Info) Description 09/25/2024 11:30 AM MACHINE CHOCOLATE MOLDER Appointment [facility] [address] [place] [address] Roberta Alex MD [address] [place] [address] 09/25/2024 11:40 AM MACHINE CHOCOLATE MOLDER Office Visit [facility] [address] [place] [address] Roberta Alex MD [address] [place] [address] documented as of this encounter Visit Diagnoses Not on filedocumented in this encounter Additional Health Concerns Infection Onset Date Last Indicated Resolved Time MRSA 06/05/2021 06/05/2021 documented as of this encounter Care Teams Recruiter Relationship Specialty Start Date End Date Alejandro Blevins MD PCP - General FAMILY PRACTICE 12/10/19 documented as of this encounter
--- OUTSIDE RECORDS SUMMARY | 2024-07-11 09:50 | XMS_ITS | Encounter Summary ---
Author Organization [facility] Address [address] [place] [address]. [place] [address] [place] [address] Care Team Providers Care Pan Cleaner Name Role Phone Alejandro Blevins MD Primary Care Provider [phone] Encounter Details Date Type Department Care Team (Latest Contact Info) Description 11/25/2023 1:23 PM CDT Hospital Encounter [facility] [address] [facility] [place] [address] Pat Moya, DENTAL MECHANIC [address] [place] [address] Discharge Disposition: Home or Self Care (Routine Discharge) Social History Tobacco Use Types Packs/Day Years Used Date Smoking Tobacco: Every Day Cigarettes Smokeless Tobacco: Never Alcohol Use Standard Drinks/Week Comments Not Currently 0 (1 standard drink = 0.6 oz pur e alcohol) Comments No Sex and Gender Information Value Date Recorded Sex Assigned at Not on file Legal Sex Female 11:30 PM HARNESS BRUSHER Gender Identity Female 11/10/2021 3:09 PM CDT Sexual Orientation Straight 11/10/2021 3: 09 PM CDT documented as of this encounter Functional Status * RETIRED Are you deaf or do you have serious difficulty hearing Answer Date of Assessment Author Status No 07/30/2020 10:48 PM HARNESS BRUSHER Acti ve * RETIRED Are you blind or do you have serious difficulty seeing, even when wearing glasses? Answer Date of Assessment Author Status No 07/30/2020 10:46 PM HARNESS BRUSHER Acti ve * Do you have serious [...] st Contact Info) Description 09/25/2024 11:30 AM HARNESS BRUSHER Appointment [facility] [address] [place] [address] [place] [place] [address] Roberta Alex MD [address] [place] [address] 09/25/2024 11:40 AM HARNESS BRUSHER Office Visit [facility] [address] [facility] [place] [place] [address] Roberta Alex MD [address] [place], [place] [id number] documented as of this encounter Procedures Procedure Name Priority Date/Time Associated Diagnosis Comments HEMOGLOBIN, GLYCOSYLATED Routine 11/25/2023 1:41 PM CDT Other skilled nursing (current) drug therapy COMPREHENSIVE METABOLIC PANEL Routine 11/25/2023 1:41 PM CDT Other skilled nursing (current) drug therapy LIPID PANEL Routine 11/25/2023 1:41 PM CDT Other skilled nursing (current) drug therapy THYROID STIM HORMONE TSH Routine 11/25/2023 1:41 PM CDT Other terminal operations manager (current) drug therapy documented in this encounter Results * ASSAY OF THYROID STIMULATING HORMONE TSH (11/25/2023 1:41 PM CDT) TSH 1.425 0.358 - 3.740 uIU/ML 11/25/2023 2:20 PM CDT [facility] Comment: ASSAY PERFORMED BY CHEMILUMINESCENT IMMUNOASSAY METHODOLOGY USING SIEMENS DIMENSION REAGENT. PATIENT RESULTS DETERMINED BY ASSAYS FROM DIFFERENT MANUFACTURERS AND/OR BY DIFFERENT METHODS MAY NOT BE COMPARABLE. 11/25/2023 1:41 PM CDT Pat Moya NP LABORATORY Final Result [facility] [address] [place] [address], * (ABNORMAL) LIPID PANEL (11/25/2023 1:41 PM CDT) CHOLESTEROL 244 MG/DL 11/26/2023 4:45 PM CDT [facility] Comment:HIGH: > OR = 240 TRIGLYCERIDES 241 MG/DL 11/26/2023 4:45 PM CDT [facility] Comment:200-499 HIGH HDL 32(L) >49 MG/DL 11/26/2023 4:45 PM CDT [facility] LDL-C 164 MG/DL 11/26/2023 4:45 PM CDT [facility] Comment:160-189 HIGH VLDL CALCULATION 48 MG/DL 11/26/19 4:45 PM CDT [facility] Comment:REFERENCE RANGE NOT ESTABLISHED CHOL/HDL RATIO 7.6 11/26/2023 4:45 PM CDT [facility] Comment:REFERENCE RANGE NOT ESTABLISHED LDL/HDL 5.1 11/26/2023 4:45 PM CDT [facility] Comment:REFERENCE RANGE NOT ESTABLISHED NON HDL CHOLESTEROL 212 MG/DL 11/26/2023 4:45 PM CDT [facility] Comment:REFERENCE RANGE NOT ESTABLISHED 11/25/2023 1:41 PM CDT Pat Moya NP LABORATORY Final Result [facility] [address] [place] [address], [place] [phone] * HEMOGLOBIN, GLYCOSYLATED (11/25/2023 1:41 PM CDT) Pathologist [facility] HGB A1C 5.4 <5.7 % 11/26/2023 4:31 PM CDT [facility] ESTIMATED AVG GLUCOSE 108 74 - 114 MG/DL 11/26/2023 4:31 PM CDT [facility] 11/25/2023 1:41 PM CDT Pat Moya NP LABORATORY Final Result [facility] [address] [place] [address], [id number] * COMPREHENSIVE METABOLIC PANEL (11/25/2023 1:41 PM CDT) SODIUM S/P/B 140 136 - 145 MMOL/L 11/25/2023 2:20 PM CDT [facility] POTASSIUM S/P/B 4.0 3.5 - 5.1 MMOL/L 11/25/2023 2:20 PM CDT [facility] CHLORIDE S/P/B 105 98 - 107 MMOL/L 11/25/2023 2:20 PM CDT [facility] CO2 24.9 21.0 - 32.0 MMOL/L 11/25/2023 2:20 PM CDT [facility] GLUCOSE 82 70 - 99 MG/DL 11/25/2023 2:20 PM CDT [facility] Comment: FASTING GLUCOSE 100 TO 125 MG/DL IS CONSISTENT WITH IMPAIRED FASTING GLUCOSE. FASTING GLUCOSE >125 MG/DL IS CONSISTENT WITH DIABETES. RANDOM GLUCOSE >200 MG/DL WITH HYPERGLYCEMIC SYMPTOMS IS CONSISTENT WITH DIABETES. PER ADA GUIDELINES BUN 14 6 - 24 MG/DL 11/25/2023 2:20 PM CDT [facility] CREATININE S/P/B 0.75 0.55 - 1.02 MG/DL 11/25/2023 2:20 PM CDT [facility] CALCIUM S/P/B 8.6 8.4 - 10.5 MG/DL 11/25/2023 2:20 PM CDT [facility] BILIRUBIN TOTAL S/P/B 0.2 0.2 - 1.0 MG/DL 11/25/2023 2:20 PM CDT [facility] Comment: THIS ASSAY IS NOT RECOMMENDED FOR PATIENTS UNDERGOING TREATMENT WITH ELTROMBOPAG DUE TO THE POTENTIAL FOR FALSELY ELEVATED RESULTS. ALKALINE PHOSPHATASE S/P/B 69 37 - 98 U/L 11/25/2023 2:20 PM CDT [facility] AST 19 15 - 37 U/L 11/25/2023 2:20 PM CDT [facility] ALT 20 14 - 59 U/L 11/25/2023 2:20 PM CDT [facility] TOTAL PROTEIN S/P/B 6.9 6.4 - 8.2 G/DL 11/25/2023 2:20 PM CDT [facility] ALBUMIN S/P/B 3.5 3.4 - 5.0 G/DL 11/25/2023 2:20 PM CDT [facility] ANION GAP 10.1 5.0 - 15.0 MMOL/L 11/25/2023 2:20 PM CDT [facility] OSMOLALITY (CALC) 290 MOSM/KG 024 2:20 PM CDT [facility] Comment:REFERENCE RANGE NOT ESTABLISHED GFR ESTIMATE >90 >89 ML/MIN/1. 73 M2 11/25/2023 2:20 PM CDT [facility] GFR NOTES GFR REFERENCE S: 11/25/2023 2:20 PM CDT [facility] Comment: THE ESTIMATED GFR [...] us Pat Moya NP LABORATORY Final Result [facility] [address] [place] [address] documented in this encounter Visit Diagnoses Diagnosis Other terminal operations manager (current) drug therapy documented in this encounter Additional Health Concerns Infection Onset Date Last Indicated Resolved Time MRSA 06/05/2021 06/05/2021 documented as of this encounter Care Teams Pan Cleaner Relationship Specialty Start Date End Date Alejandro Blevins MD PCP - General FAMILY PRACTICE 12/10/19 documented as of this encounter
--- OUTSIDE RECORDS SUMMARY | 2024-07-11 09:50 | XMS_ITS | Encounter Summary ---
Author Organization [facility] Address [address] [place] [address]. [place] [address] [place] [address] Care Team Providers Care It Application Development Manager Name Role Phone Alejandro Blevins MD Primary Care Provider [phone] Reason for Visit * Reason Comments Lab Results Follow Up Chronic ITP Encounter Details Date Type Department Care Team (Late st Contact Info) Description 03/19/2024 11:30 AM CDT Office Visit [address] [place] [address] Carey Pang, APNP [address] [place] [id number] Lab Results; Follow Up (Chronic ITP) Social History Tobacco Use Types Packs/Day Years Used Date Smoking Tobacco: Every Day Cigarettes Smokeless Tobacco: Never Alcohol Use Standard Drinks/Week Comments Not Currently 0 (1 standard drink = 0.6 oz pur e alcohol) Comments No Sex and Gender Information Value Date Recorded Sex Assigned at Not on file Legal Sex Female 11:30 PM HIMS CLERK Gender Identity Female 11/10/2021 3:09 PM [...] Assessment Author Status No 07/30/2020 10:48 PM HIMS CLERK Acti ve * RETIRED Are you blind or do you have serious difficulty seeing, even when wearing glasses? Answer Date of Assessment Author Status No 07/30/2020 10:46 PM HIMS CLERK Acti ve * Do you have [...] st Contact Info) Description 09/25/2024 11:30 AM HIMS CLERK Appointment [facility] [address] [place] [address] Roberta Alex MD [address] [place] [address] 09/25/2024 11:40 AM HIMS CLERK Office Visit [facility] [address] [address] Roberta Alex MD [address] [place] [address] documented as of this encounter Visit Diagnoses Diagnosis Iron deficiency anemia secondary to inadequate dietary iron intake- Primary Chronic ITP (idiopathic thrombocytopenia) ([facility]) Immune thrombocytopenic purpura documented in this encounter Additional Health Concerns Infection Onset Date Last Indicated Resolved Time MRSA 06/05/2021 06/05/2021 documented as of this encounter Care Teams It Application Development Manager Relationship Specialty Start Date End Date Alejandro Blevins MD PCP - General FAMILY PRACTICE 12/10/19 documented as of this encounter
--- OUTSIDE RECORDS SUMMARY | 2024-07-11 09:50 | XMS_ITS | Encounter Summary ---
Author Organization [facility] Address [facility] [place] [address] [place] [address] Care Team Providers Care Acid Adjuster Name Role Phone Alejandro Blevins MD Primary Care Provider [phone] Encounter Details Date Type Department Care Team (Late st Contact Info) Description 12/06/2023 Orders Only [address] [place] [address] Roberta Alex MD [address] [place] [address] Social History Tobacco Use Types Packs/Day Years Used Date Smoking Tobacco: Every Day Cigarettes Smokeless Tobacco: Never Alcohol Use Standard Drinks/Week Comments Not Currently 0 (1 standard drink = 0.6 oz pur e alcohol) Comments No Sex and Gender Information Value Date Recorded Sex Assigned at Not on file Legal Sex Female 11:30 PM STATISTICIAN Gender Identity Female 11/10/2021 3:09 PM CDT Sexual Orientation Straight 11/10/2021 3: 09 PM CDT documented as of this encounter Functional Status * RETIRED Are you deaf or do you have serious difficulty hearing Answer Date of Assessment Author Status No 07/30/2020 10:48 PM STATISTICIAN Acti ve * RETIRED Are you blind or do you have serious difficulty seeing, even when wearing glasses? Answer Date of Assessment Author Status No 07/30/2020 10:46 PM STATISTICIAN Acti ve * Do you have serious difficulty walking or climbing stairs? Answer Date of Assessment Author Status No 07/30/2020 10:46 PM STATISTICIAN Bringuet, Nella C, RN Active * Do you have difficulty dressing or bathing? Answer Date of Assessment Author Status No 07/30/2020 10:46 PM STATISTICIAN Nella Le RN Active * Because of [...] st Contact Info) Description 09/25/2024 11:30 AM STATISTICIAN Appointment [facility] [address] [place] [address] Roberta Alex MD [address] [place] [address] 09/25/2024 11:40 AM STATISTICIAN Office Visit [facility] [address] [place] [address] Roberta Alex MD [address] [place] [address] Scheduled Orders Name Type Priority Associated Diagnoses Orde r Schedule CBC W/DIFF AUTOMATED Lab Routine Thrombocytopenia Every 4 Weeks for 4 Occurrences starting 12/06/2023 until 12/05/2024, 1 completed documented as of this encounter Results * (ABNORMAL) CBC W/DIFF AUTOMATED (01/17/2024 2:35 PM CDT) WBC 11.56(H) 4.00 - 10.80 x10'3/uL 01/17/2024 3:10 PM CDT [facility] RBC 4.81 4.10 - 5.40 x10'6/uL 01/17/2024 3:10 PM CDT [facility] HGB 13.5 12.0 - 16.0 G/DL 01/17/2024 3:10 PM CDT [facility] HCT 42.2 36.0 - 47.0 % 01/17/2024 3:10 PM CDT [facility] MCV 87.7 78.0 - 100.0 FL 01/17/2024 3:10 PM CDT [facility] MCH 28.1 27.0 - 31.0 PG 01/17/2024 3:10 PM CDT [facility] MCHC 32.0(L) 33.0 - 36.0 G/DL 01/17/2024 3:10 PM CDT [facility] RDW 12.9 11.5 - 14.5 % 01/17/2024 3:10 PM CDT [facility] PLT 191 150 - 350 x10'3/uL 01/17/2024 3:10 PM CDT [facility] MPV 14.0(H) 7.4 - 10.4 FL 01/17/2024 3:10 PM CDT [facility] CBC COMMENT NORMAL REFERENCE RANGE NOT ESTABLISHED FOR THE PROPORTIONAL LEUKOCYTE DIFFERENTIAL. 01/17/2024 3:10 PM CDT [facility] NEUTROPHILS % 79.1 % 01/17/2024 3:13 PM CDT [facility] LYMPHOCYTES % 13.6 % 01/17/2024 3:13 PM CDT [facility] MONOCYTES % 4.5 % 01/17/2024 3:13 PM CDT [facility] EOSINOPHILS % 1.7 % 01/17/2024 3:13 PM CDT [facility] BASOPHILS % 0.8 % 01/17/2024 3:13 PM CDT [facility] IMMATURE GRANS % 0.3 % 01/17/20 3:13 PM CDT [facility] NRBC 0.0 % 01/17/2024 3:13 PM CDT [facility] ABS. NEUTROPHILS 9.15(H) 1.60 - 8.30 x10'3/uL 01/17/2024 3:13 PM CDT [facility] ABS. LYMPHOCYTES 1.57 0.80 - 4.70 x10'3/uL 01/17/2024 3:13 PM CDT [facility] ABS. MONOCYTES 0.52 0.00 - 1.50 x10'3/uL 01/17/2024 3:13 PM CDT [facility] ABS. EOSINOPHILS 0.20 0.00 - 0.40 x10'3/uL 01/17/2024 3:13 PM CDT [facility] ABS. BASOPHILS 0.09 0.00 - 0.20 x10'3/uL 01/17/2024 3:13 PM CDT [facility] ABS. IMMATURE GRANULOCYTES 0.03 0.00 - 0.03 x10'3/uL 01/17/2024 3:13 PM CDT [facility] ABS. NUCLEATED RBC'S 0.00 0.00 - 0.01 x10'3/uL 01/17/2024 3:13 PM CDT [facility] PLT MORPH. NORMAL 01/17/2024 3:13 PM CDT [facility] RBC MORPHOLOGY NORMAL 01/17/2024 3:13 PM CDT [facility] 01/17/2024 2:35 PM CDT Roberta Alex MD LABORATORY Final Result [facility] [address] [phone] documented in this encounter Visit Diagnoses Diagnosis Thrombocytopenia (CMS/HCC)- Primary Thrombocytopenia, unspecified documented in this encounter Additional Health Concerns Infection Onset Date Last Indicated Resolved Time MRSA 06/05/2021 06/05/2021 documented as of this encounter Care Teams Acid Adjuster Relationship Specialty Start Date End Date Alejandro Blevins MD PCP - General FAMILY PRACTICE 12/10/19 documented as of this encounter
--- OUTSIDE RECORDS SUMMARY | 2024-07-11 09:50 | XMS_ITS | Encounter Summary ---
Author Organization [facility] Address [facility] [facility] [address] [place] [address] Care Team Providers Care Grinding Mill Operator Name Role Phone Alejandro Blevins MD Primary Care Provider [phone] Encounter Details Date Type Department Care Team (Late st Contact Info) Description 11/10/2023 Orders Only [address] [place] [address] Roberta Alex MD [address] [place] [address] Social History Tobacco Use Types Packs/Day Years Used Date Smoking Tobacco: Every Day Cigarettes Smokeless Tobacco: Never Alcohol Use Standard Drinks/Week Comments Not Currently 0 (1 standard drink = 0.6 oz pur e alcohol) Comments No Sex and Gender Information Value Date Recorded Sex Assigned at Not on file Legal Sex Female 11:30 PM PARTS ROOM ASSOCIATE Gender Identity Female 11/10/2021 3:09 PM CDT Sexual Orientation Straight 11/10/2021 3: 09 PM CDT documented as of this encounter Functional Status * RETIRED Are you deaf or do you have serious difficulty hearing Answer Date of Assessment Author Status No 07/30/2020 10:48 PM PARTS ROOM ASSOCIATE Acti ve * RETIRED Are you blind or do you have serious difficulty seeing, even when wearing glasses? Answer Date of Assessment Author Status No 07/30/2020 10:46 PM PARTS ROOM ASSOCIATE Acti ve * Do you have serious difficulty walking or climbing stairs? Answer Date of Assessment Author Status No 07/30/2020 10:46 PM PARTS ROOM ASSOCIATE Bringuet, Nella C, RN Active * Do you have difficulty dressing or bathing? Answer Date of Assessment Author Status No 07/30/2020 10:46 PM PARTS ROOM ASSOCIATE Nella Le RN Active * Because of [...] st Contact Info) Description 09/25/2024 11:30 AM PARTS ROOM ASSOCIATE Appointment [facility] [address] [place] [address] Roberta Alex MD [address] [place] [address] 09/25/2024 11:40 AM PARTS ROOM ASSOCIATE Office Visit [facility] [address] [place] [address] Roberta Alex MD [address] [place] [address] Scheduled Orders Name Type Priority Associated Diagnoses Orde r Schedule CBC W/DIFF AUTOMATED Lab Routine Iron deficiency anemia due to chronic blood loss Once a week for 5 Occurrences starting 11/10/2023 until 11/09/2024, 1 completed documented as of this encounter Results * (ABNORMAL) CBC W/DIFF AUTOMATED (11/25/2023 1:41 PM CDT) WBC 9.36 4.00 - 10.80 x10'3/uL 11/25/2023 1:54 PM CDT [facility] RBC 4.44 4.10 - 5.40 x10'6/uL 11/25/2023 1:54 PM CDT [facility] HGB 12.5 12.0 - 16.0 G/DL 11/25/2023 1:54 PM CDT [facility] HCT 39.4 36.0 - 47.0 % 11/25/2023 1:54 PM CDT [facility] MCV 88.7 78.0 - 100.0 FL 11/25/2023 1:54 PM CDT [facility] MCH 28.2 27.0 - 31.0 PG 11/25/2023 1:54 PM CDT [facility] MCHC 31.7(L) 33.0 - 36.0 G/DL 11/25/2023 1:54 PM CDT [facility] RDW 13.0 11.5 - 14.5 % 11/25/2023 1:54 PM CDT [facility] PLT 148(L) 150 - 350 x10'3/uL 11/25/2023 1:54 PM CDT [facility] MPV 14.1(H) 7.4 - 10.4 FL 11/25/2023 1:54 PM CDT [facility] CBC COMMENT NORMAL REFERENCE RANGE NOT ESTABLISHED FOR THE PROPORTIONAL LEUKOCYTE DIFFERENTIAL. 11/25/2023 1:54 PM CDT [facility] NEUTROPHILS % 65.9 % 11/25/2023 1:54 PM CDT [facility] LYMPHOCYTES % 17.4 % 11/25/2023 1:54 PM CDT [facility] MONOCYTES % 6.2 % 11/25/2023 1:54 PM CDT [facility] EOSINOPHILS % 9.7 % 11/25/2023 1:54 PM CDT [facility] BASOPHILS % 0.6 % 11/25/2023 1:54 PM CDT [facility] IMMATURE GRANS % 0.2 % 11/25/19 1:54 PM CDT [facility] NRBC 0.0 % 11/25/2023 1:54 PM CDT [facility] ABS. NEUTROPHILS 6.16 1.60 - 8.30 x10'3/uL 11/25/2023 1:54 PM CDT [facility] ABS. LYMPHOCYTES 1.63 0.80 - 4.70 x10'3/uL 11/25/2023 1:54 PM CDT [facility] ABS. MONOCYTES 0.58 0.00 - 1.50 x10'3/uL 11/25/2023 1:54 PM CDT [facility] ABS. EOSINOPHILS 0.91(H) 0.00 - 0.40 x10'3/uL 11/25/2023 1:54 PM CDT [facility] ABS. BASOPHILS 0.06 0.00 - 0.20 x10'3/uL 11/25/2023 1:54 PM CDT [facility] ABS. IMMATURE GRANULOCYTES 0.02 0.00 - 0.03 x10'3/uL 11/25/2023 1:54 PM CDT [facility] ABS. NUCLEATED RBC'S 0.00 0.00 x10'3/uL 11/25/2023 1:54 PM CDT [facility] 11/25/2023 1:41 PM CDT Roberta Alex MD LABORATORY Final Result [facility] [address] [place] [address], documented in this encounter Visit Diagnoses Diagnosis Iron deficiency anemia secondary to inadequate dietary iron intake- Primary Iron deficiency anemia due to chronic blood loss Iron deficiency anemia secondary to blood loss (chronic) documented in this encounter Additional Health Concerns Infection Onset Date Last Indicated Resolved Time MRSA 06/05/2021 06/05/2021 documented as of this encounter Care Teams Grinding Mill Operator Relationship Specialty Start Date End Date Alejandro Blevins MD PCP - General FAMILY PRACTICE 12/10/19 documented as of this encounter
--- OUTSIDE RECORDS SUMMARY | 2024-07-11 09:51 | XMS_ITS | Encounter Summary ---
Author Organization [facility] Address [address] [place] [address]. [place] [address] [place] [address] Care Team Providers Care Electrician Elevator Maintenance Name Role Phone Alejandro Blevins MD Primary Care Provider [phone] Encounter Details Date Type Department Care Team (Latest Contact Info) Description 09/22/2023 12:00 PM HEARING AID FITTER - 09/22/2023 11:59 PM HEARING AID FITTER Hospital Encounter [address] [place] [address] Roberta Alex MD [address] [place] [address] Discharge Disposition: Home or Self Care (Routine Discharge) Social History Tobacco Use Types Packs/Day Years Used Date Smoking Tobacco: Every Day Cigarettes Smokeless Tobacco: Never Alcohol Use Standard Drinks/Week Comments Not Currently 0 (1 standard drink = 0.6 oz pur e alcohol) Comments No Sex and Gender Information Value Date Recorded Sex Assigned at Not on file Legal Sex Female 11:30 PM HEARING AID FITTER Gender Identity Female 11/10/2021 3:09 PM CDT Sexual Orientation Straight 11/10/2021 3: 09 PM CDT documented as of this encounter Functional Status * RETIRED Are you deaf or do you have serious difficulty hearing Answer Date of Assessment Author Status No 07/30/2020 10:48 PM HEARING AID FITTER Acti ve * RETIRED Are you blind or do you have serious difficulty seeing, even when wearing glasses? Answer Date of Assessment Author Status No 07/30/2020 10:46 PM HEARING AID FITTER Acti ve * Do you have [...] st Contact Info) Description 09/25/2024 11:30 AM HEARING AID FITTER Appointment [facility] [address] [place] [address] Roberta Alex MD [address] [place] [address] 09/25/2024 11:40 AM HEARING AID FITTER Office Visit [facility] [address] [place] [address] Roberta Alex MD [address] [place], [place] [address] documented as of this encounter Procedures Procedure Name Priority Date/Time Associated Diagnosis Comments CBC W/DIFF AUTOMATED Routine 09/22/2023 1:07 PM HEARING AID FITTER Acute ITP (CMS/HCC HHS/HCC) documented in this encounter Results * (ABNORMAL) CBC W/DIFF AUTOMATED (09/22/2023 1:07 PM HEARING AID FITTER) WBC 7.48 4.00 - 10.80 x10'3/uL 09/22/2023 1:19 PM HEARING AID FITTER [facility] RBC 4.72 4.10 - 5.40 x10'6/uL 09/22/2023 1:19 PM HEARING AID FITTER [facility] HGB 13.6 12.0 - 16.0 G/DL 09/22/2023 1:19 PM HEARING AID FITTER [facility] HCT 42.1 36.0 - 47.0 % 09/22/2023 1:19 PM HEARING AID FITTER [facility] MCV 89.2 78.0 - 100.0 FL 09/22/2023 1:19 PM HEARING AID FITTER [facility] MCH 28.8 27.0 - 31.0 PG 09/22/2023 1:19 PM HEARING AID FITTER [facility] MCHC 32.3(L) 33.0 - 36.0 G/DL 09/22/2023 1:19 PM HEARING AID FITTER [facility] RDW 12.0 11.5 - 14.5 % 09/22/2023 1:19 PM [facility] PLT 31(L) 150 - 350 x10'3/uL 09/22/2023 1:19 PM [facility] MPV RESULTS NOT AVAILABLE 7.4 - 10.4 FL 09/22/2023 1:19 PM [facility] CBC COMMENT NORMAL REFERENCE RANGE NOT ESTABLISHED FOR THE PROPORTIONAL LEUKOCYTE DIFFERENTIAL. 09/22/2023 1:19 PM [facility] NEUTROPHILS % 73.2 % 09/22/2023 1:41 PM [facility] LYMPHOCYTES % 18.0 % 09/22/2023 1:41 PM [facility] MONOCYTES % 2.9 % 09/22/2023 1:41 PM [facility] EOSINOPHILS % 4.8 % 09/22/2023 1:41 PM [facility] BASOPHILS % 0.8 % 09/22/2023 1:41 PM [facility] IMMATURE GRANS % 0.3 % 09/22/19 1:41 PM [facility] NRBC 0.0 % 09/22/2023 1:41 PM [facility] ABS. NEUTROPHILS 5.48 1.60 - 8.30 x10'3/uL 09/22/2023 1:41 PM [facility] ABS. LYMPHOCYTES 1.35 0.80 - 4.70 x10'3/uL 09/22/2023 1:41 PM [facility] ABS. MONOCYTES 0.22 0.00 - 1.50 x10'3/uL 09/22/2023 1:41 PM [facility] ABS. EOSINOPHILS 0.36 0.00 - 0.40 x10'3/uL 09/22/2023 1:41 PM [facility] ABS. BASOPHILS 0.06 0.00 - 0.20 x10'3/uL 09/22/2023 1:41 PM [facility] ABS. IMMATURE GRANULOCYTES 0.02 0.00 - 0.03 x10'3/uL 09/22/2023 1:41 PM HEARING AID FITTER [facility] ABS. NUCLEATED RBC'S 0.00 0.00 x10'3/uL 09/22/2023 1:41 PM HEARING AID FITTER [facility] PLT MORPH. DECREASED 09/22/2023 1:41 PM HEARING AID FITTER [facility] RBC MORPHOLOGY NORMAL 09/22/2023 1:41 PM HEARING AID FITTER [facility] 09/22/2023 1:07 PM HEARING AID FITTER us Roberta Alex MD LABORATORY Final Result [facility] [address] [place] [address], documented in this encounter Visit Diagnoses Diagnosis Acute ITP (CMS/HCC HHS/HCC) Immune thrombocytopenic purpura documented in this encounter Additional Health Concerns Infection Onset Date Last Indicated Resolved Time MRSA 06/05/2021 06/05/2021 documented as of this encounter Care Teams Electrician Elevator Maintenance Relationship Specialty Start Date End Date Alejandro Blevins MD PCP - General FAMILY PRACTICE 12/10/19 documented as of this encounter
--- OUTSIDE RECORDS SUMMARY | 2024-07-11 09:51 | XMS_ITS | Encounter Summary ---
Author Organization [facility] Address [address] [place] [address]. [place] [address] [place] [address] Care Team Providers Care Unified Communications Architect Name Role Phone Alejandro Blevins MD Primary Care Provider [phone] Encounter Details Date Type Department Care Team (Latest Contact Info) Description 09/07/2023 1:00 PM SOILS ANALYST - 09/07/2023 11:59 PM SOILS ANALYST Hospital Encounter [address] [place] [address] Roberta Alex MD [address] [place] [address] Discharge Disposition: Home or Self Care (Routine Discharge) Social History Tobacco Use Types Packs/Day Years Used Date Smoking Tobacco: Every Day Cigarettes Smokeless Tobacco: Never Alcohol Use Standard Drinks/Week Comments Not Currently 0 (1 standard drink = 0.6 oz pur e alcohol) Comments No Sex and Gender Information Value Date Recorded Sex Assigned at Not on file Legal Sex Female 11:30 PM SOILS ANALYST Gender Identity Female 11/10/2021 3:09 PM CDT Sexual Orientation Straight 11/10/2021 3: 09 PM CDT documented as of this encounter Functional Status * RETIRED Are you deaf or do you have serious difficulty hearing Answer Date of Assessment Author Status No 07/30/2020 10:48 PM SOILS ANALYST Acti ve * RETIRED Are you blind or do you have serious difficulty seeing, even when wearing glasses? Answer Date of Assessment Author Status No 07/30/2020 10:46 PM SOILS ANALYST Acti ve * Do you have [...] st Contact Info) Description 09/25/2024 11:30 AM SOILS ANALYST Appointment [facility] [place] [address] Roberta Alex MD [address] [place] [address] 09/25/2024 11:40 AM SOILS ANALYST Office Visit [facility] [place] [id number] Roberta Alex MD [address] [place] [address] documented as of this encounter Procedures Procedure Name Priority Date/Time Associated Diagnosis Comments CBC W/DIFF AUTOMATED Routine 09/07/2023 2:42 PM SOILS ANALYST Acute ITP (CMS/HCC HHS/HCC) documented in this encounter Results * (ABNORMAL) CBC W/DIFF AUTOMATED (09/07/2023 2:42 PM SOILS ANALYST) WBC 7.40 4.00 - 10.80 x10'3/uL 09/07/2023 3:53 PM SOILS ANALYST [facility] RBC 5.16 4.10 - 5.40 x10'6/uL 09/07/2023 3:53 PM SOILS ANALYST [facility] HGB 14.8 12.0 - 16.0 G/DL 09/07/2023 3:53 PM SOILS ANALYST [facility] HCT 46.1 36.0 - 47.0 % 09/07/2023 3:53 PM SOILS ANALYST [facility] MCV 89.3 78.0 - 100.0 FL 09/07/2023 3:53 PM SOILS ANALYST [facility] MCH 28.7 27.0 - 31.0 PG 09/07/2023 3:53 PM SOILS ANALYST [facility] MCHC 32.1(L) 33.0 - 36.0 G/DL 09/07/2023 3:53 PM SOILS ANALYST [facility] RDW 12.3 11.5 - 14.5 % 09/07/2023 3:53 PM [facility] PLT 36(L) 150 - 350 x10'3/uL 09/07/2023 3:53 PM [facility] MPV RESULTS NOT AVAILABLE 7.4 - 10.4 FL 09/07/2023 3:53 PM [facility] CBC COMMENT NORMAL REFERENCE RANGE NOT ESTABLISHED FOR THE PROPORTIONAL LEUKOCYTE DIFFERENTIAL. 09/07/2023 3:53 PM [facility] NEUTROPHILS % 70.6 % 09/07/2023 5:06 PM [facility] LYMPHOCYTES % 19.6 % 09/07/2023 5:06 PM [facility] MONOCYTES % 3.9 % 09/07/2023 5:06 PM [facility] EOSINOPHILS % 4.6 % 09/07/2023 5:06 PM [facility] BASOPHILS % 0.9 % 09/07/2023 5:06 PM [facility] IMMATURE GRANS % 0.4 % 09/07/19 5:06 PM [facility] NRBC 0.0 % 09/07/2023 5:06 PM [facility] ABS. NEUTROPHILS 5.22 1.60 - 8.30 x10'3/uL 09/07/2023 5:06 PM [facility] ABS. LYMPHOCYTES 1.45 0.80 - 4.70 x10'3/uL 09/07/2023 5:06 PM [facility] ABS. MONOCYTES 0.29 0.00 - 1.50 x10'3/uL 09/07/2023 5:06 PM [facility] ABS. EOSINOPHILS 0.34 0.00 - 0.40 x10'3/uL 09/07/2023 5:06 PM [facility] ABS. BASOPHILS 0.07 0.00 - 0.20 x10'3/uL 09/07/2023 5:06 PM [facility] ABS. IMMATURE GRANULOCYTES 0.03 0.00 - 0.03 x10'3/uL 09/07/2023 5:06 PM [facility] ABS. NUCLEATED RBC'S 0.00 0.00 x10'3/uL 09/07/2023 5:06 PM SOILS ANALYST [facility] PLT MORPH. DECREASED 09/07/2023 5:06 PM SOILS ANALYST [facility] RBC MORPHOLOGY NORMAL 09/07/2023 5:06 PM SOILS ANALYST [facility] 09/07/2023 2:42 PM SOILS ANALYST us Roberta Alex MD LABORATORY Final Result [facility] [address] [place] [address], documented in this encounter Visit Diagnoses Diagnosis Acute ITP (CMS/HCC HHS/HCC) Immune thrombocytopenic purpura documented in this encounter Additional Health Concerns Infection Onset Date Last Indicated Resolved Time MRSA 06/05/2021 06/05/2021 documented as of this encounter Care Teams Unified Communications Architect Relationship Specialty Start Date End Date Alejandro Blevins MD PCP - General FAMILY PRACTICE 12/10/19 documented as of this encounter
--- OUTSIDE RECORDS SUMMARY | 2024-07-11 09:51 | XMS_ITS | Encounter Summary ---
Author Organization [facility] Address [address] [place] [address]. [place], [place] [address] [place] [address] Care Team Providers Care Stenographer Secretary Name Role Phone Alejandro Blevins MD Primary [...] on file Legal Sex Female 11:30 PM SPECIMEN BOSS Gender Identity Female 11/10/2021 3:09 PM CDT Sexual Orientation Straight 11/10/2021 3: 09 PM CDT documented as of this encounter Functional Status * RETIRED Are you deaf or do you have serious difficulty hearing Answer Date of Assessment Author Status No 07/30/2020 10:48 PM SPECIMEN BOSS Acti ve * RETIRED Are you blind or do you have serious difficulty seeing, even when wearing glasses? Answer Date of Assessment Author Status No 07/30/2020 10:46 PM SPECIMEN BOSS Acti ve * Do you have serious difficulty walking or climbing stairs? Answer Date of Assessment Author Status No 07/30/2020 10:46 PM SPECIMEN BOSS Nella Le RN Active * Do you have difficulty dressing or bathing? Answer Date of Assessment Author Status No 07/30/2020 10:46 PM SPECIMEN BOSS Nella Le RN Active * Because of a physical, mental, or emotional condition, do you have difficulty doing errands alone such as visiting a doctor's office or shopping? Answer Date of Assessment Author Status No 07/30/2020 10:46 PM SPECIMEN BOSS Nella Le RN Active documented as of this encounter Mental Status * Because of a physical, mental, or emotional condition, do you have serious difficulty concentrating, remembering, or making decisions? Answer Entry Date Author Status No 07/30/2020 10:46 PM SPECIMEN BOSS Nella Le RN Active documented in this encounter Plan of Treatment Upcoming Encounters Date Type Department Care Team (Late st Contact Info) Description 09/25/2024 11:30 AM SPECIMEN BOSS Appointment [facility] [address] [place] [address] Roberta Alex MD [address] [place] [address] 09/25/2024 11:40 AM SPECIMEN BOSS Office Visit [facility] [address] [place] [address] Roberta Alex MD [address] [place] [address] documented as of this encounter Visit Diagnoses Not on filedocumented in this encounter Additional Health Concerns Infection Onset Date Last Indicated Resolved Time MRSA 06/05/2021 06/05/2021 documented as of this encounter Care Teams Stenographer Secretary Relationship Specialty Start Date End Date Alejandro Blevins MD PCP - General FAMILY PRACTICE 12/10/19 documented as of this encounter
--- OUTSIDE RECORDS SUMMARY | 2024-07-11 09:51 | XMS_ITS | Encounter Summary ---
Author Organization [facility] Address [address] [place] [address]. [place] [address] [place] [address] Care Team Providers Care Surface Supply Breathing Apparatus Name Role Phone Alejandro Blevins MD Primary Care Provider [phone] Reason for Visit * Reason Comments Follow Up Chronic ITP Lab Results Encounter Details Date Type Department Care Team (Late st Contact Info) Description 10/03/2023 1:00 PM CDT Office Visit [address] [place] [address] Carey Pang, APNP [address] [place] [id number] Follow Up (Chronic ITP ); Lab [...] on file Legal Sex Female 11:30 PM CAM MILLING MACHINE OPERATOR Gender Identity Female 11/10/2021 3:09 [...] Assessment Author Status No 07/30/2020 10:48 PM CAM MILLING MACHINE OPERATOR Acti ve * RETIRED Are you blind or do you have serious difficulty seeing, even when wearing glasses? Answer Date of Assessment Author Status No 07/30/2020 10:46 PM CAM MILLING MACHINE OPERATOR Acti ve * Do you [...] st Contact Info) Description 09/25/2024 11:30 AM CAM MILLING MACHINE OPERATOR Appointment [facility] [address] [place] [address] Roberta Alex MD [address] [place] [address] 09/25/2024 11:40 AM CAM MILLING MACHINE OPERATOR Office Visit [facility] [address] [place] [address] Roberta Alex MD [address] [place] [address] documented as of this encounter Visit Diagnoses Diagnosis Chronic ITP (idiopathic thrombocytopenia) ([facility]/HCC)- Primary Immune thrombocytopenic purpura Acute ITP ([facility]) Immune thrombocytopenic purpura Iron deficiency anemia due to chronic blood loss Iron deficiency anemia secondary to blood loss (chronic) documented in this encounter Additional Health Concerns Infection Onset Date Last Indicated Resolved Time MRSA 06/05/2021 06/05/2021 documented as of this encounter Care Teams Surface Supply Breathing Apparatus Relationship Specialty Start Date End Date Alejandro Blevins MD PCP - General FAMILY PRACTICE 12/10/19 documented as of this encounter
--- OUTSIDE RECORDS SUMMARY | 2024-07-11 09:51 | XMS_ITS | Encounter Summary ---
Author Organization [facility] Address [facility] [facility] [place] [address] [place] [address] Care Team Providers Care Dramatic Teacher Name Role Phone Alejandro Blevins MD Primary Care Provider [phone] Reason for Visit * Treatment/Therapy Plan Authorization (Routine) - Closed Specialty Diagnoses / Procedures Referred By Contac t Referred To Contact Diagnoses Chronic ITP (idiopathic thrombocytopenia) ([facility]/HCC [facility]/HCC) Thrombocytopenia ([facility]) Procedures ITP RomiPLOStim Roberta Alex MD [address] [place] [address] Phone: tel: fax: [facility] [address] [place] [address] Phone: tel: Referral ID Status Reason Start Date Expiration Date Visits Re quested Visits Authorized [id number] Closed 12/23/2022 03/25/2023 1 1 Encounter Details Date Type Department Care Team (Latest Contact Info) Description 08/12/2023 11:55 AM ACCOUNT RESOLUTION ANALYST - 08/12/2023 11:59 PM ACCOUNT RESOLUTION ANALYST Hospital Encounter [facility] [address] [place] [address] Roberta Alex MD [address] [place], [place] [address] Discharge Disposition: Home or Self Care (Routine Discharge) Social History Tobacco Use Types Packs/Day Years Used Date Smoking Tobacco: Every Day Cigarettes Smokeless Tobacco: Never Alcohol Use Standard Drinks/Week Comments Not Currently 0 (1 standard drink = 0.6 oz pur e alcohol) Comments No Sex and Gender Information Value Date Recorded Sex Assigned at Not on file Legal Sex Female 11:30 PM ACCOUNT RESOLUTION ANALYST Gender Identity Female 11/10/2021 3:09 PM CDT Sexual Orientation Straight 11/10/2021 3 :09 PM CDT documented as of this encounter Functional Status * RETIRED Are you deaf or do you have serious difficulty hearing Answer Date of Assessment Author Status No 07/30/2020 10:48 PM ACCOUNT RESOLUTION ANALYST Acti ve * RETIRED Are you blind or do you have serious difficulty seeing, even when wearing glasses? Answer Date of Assessment Author Status No 07/30/2020 10:46 PM ACCOUNT RESOLUTION ANALYST Acti ve * Do you have [...] st Contact Info) Description 09/25/2024 11:30 AM ACCOUNT RESOLUTION ANALYST Appointment [facility] [place] [address] Roberta Alex MD [address] [place] [address] 09/25/2024 11:40 AM ACCOUNT RESOLUTION ANALYST Office Visit [facility] [address] [place] [address] Roberta Alex MD [address] [place] [address] documented as of this encounter Procedures Procedure Name Priority Date/Time Associated Diagnosis Comments CBC W/DIFF AUTOMATED Routine 08/12/2023 12:02 PM ACCOUNT RESOLUTION ANALYST Thrombocytopenia Chronic ITP (idiopathic thrombocytopenia) (CMS/HCC HHS/HCC) documented in this encounter Results * (ABNORMAL) CBC W/DIFF AUTOMATED (08/12/2023 12:02 PM ACCOUNT RESOLUTION ANALYST) WBC 6.55 4.00 - 10.80 x10'3/uL 08/12/2023 12:12 PM ACCOUNT RESOLUTION ANALYST [facility] RBC 4.48 4.10 - 5.40 x10'6/uL 08/12/2023 12:12 PM ACCOUNT RESOLUTION ANALYST [facility] HGB 13.1 12.0 - 16.0 G/DL 08/12/2023 12:12 PM [facility] HCT 40.8 36.0 - 47.0 % 08/12/2023 12:12 PM [facility] MCV 91.1 78.0 - 100.0 FL 08/12/2023 12:12 PM [facility] MCH 29.2 27.0 - 31.0 PG 08/12/2023 12:12 PM [facility] MCHC 32.1(L) 33.0 - 36.0 G/DL 08/12/2023 12:12 PM [facility] RDW 12.9 11.5 - 14.5 % 08/12/2023 12:12 PM [facility] PLT 43(L) 150 - 350 x10'3/uL 08/12/2023 12:12 PM [facility] MPV 15.4(H) 7.4 - 10.4 FL 08/12/2023 12:12 PM [facility] CBC COMMENT NORMAL REFERENCE RANGE NOT ESTABLISHED FOR THE PROPORTIONAL LEUKOCYTE DIFFERENTIAL. 08/12/2023 12:12 PM [facility] NEUTROPHILS % 57.9 % 08/12/2023 12:20 PM [facility] LYMPHOCYTES % 23.7 % 08/12/2023 12:20 PM [facility] MONOCYTES % 7.0 % 08/12/2023 12:20 PM [facility] EOSINOPHILS % 10.2 % 08/12/2023 12:20 PM [facility] BASOPHILS % 0.9 % 08/12/2023 12:20 PM [facility] IMMATURE GRANS % 0.3 % 08/12/19 12:20 PM [facility] NRBC 0.0 % 08/12/2023 12:20 PM [facility] ABS. NEUTROPHILS 3.79 1.60 - 8.30 x10'3/uL 08/12/2023 12:20 PM [facility] ABS. LYMPHOCYTES 1.55 0.80 - 4.70 x10'3/uL 08/12/2023 12:20 PM ACCOUNT RESOLUTION ANALYST [facility] ABS. MONOCYTES 0.46 0.00 - 1.50 x10'3/uL 08/12/2023 12:20 PM ACCOUNT RESOLUTION ANALYST [facility] ABS. EOSINOPHILS 0.67(H) 0.00 - 0.40 x10'3/uL 08/12/2023 12:20 PM ACCOUNT RESOLUTION ANALYST [facility] ABS. BASOPHILS 0.06 0.00 - 0.20 x10'3/uL 08/12/2023 12:20 PM ACCOUNT RESOLUTION ANALYST [facility] ABS. IMMATURE GRANULOCYTES 0.02 0.00 - 0.03 x10'3/uL 08/12/2023 12:20 PM ACCOUNT RESOLUTION ANALYST [facility] ABS. NUCLEATED RBC'S 0.00 0.00 x10'3/uL 08/12/2023 12:20 PM ACCOUNT RESOLUTION ANALYST [facility] PLT MORPH. DECREASED 08/12/2023 12:20 PM ACCOUNT RESOLUTION ANALYST [facility] RBC MORPHOLOGY 1+ 08/12/2023 12:20 PM ACCOUNT RESOLUTION ANALYST [facility] Comment: ANISOCYTOSIS 1+ POIKILOCYTOSIS 1+ MICROCYTES 08/12/2023 12:0 2 PM ACCOUNT RESOLUTION ANALYST Carey TUBBSNP LABORATORY Final Res ult [facility] [address] [place] [address], documented in this encounter Visit Diagnoses Diagnosis Thrombocytopenia (CMS/HCC) Thrombocytopenia, unspecified Chronic ITP (idiopathic thrombocytopenia) (CMS/HCC HHS/HCC) Immune thrombocytopenic purpura documented in this encounter Additional Health Concerns Infection Onset Date Last Indicated Resolved Time MRSA 06/05/2021 06/05/2021 documented as of this encounter Care Teams Dramatic Teacher Relationship Specialty Start Date End Date Alejandro Blevins MD PCP - General FAMILY PRACTICE 12/10/19 documented as of this encounter
--- OUTSIDE RECORDS SUMMARY | 2024-07-11 09:51 | XMS_ITS | Encounter Summary ---
Author Organization [facility] Address [facility] [place] [address] [place] [address] Care Team Providers Care Delivery Table Operator Name Role Phone Alejandro Blevins MD Primary Care Provider [phone] Encounter Details Date Type Department Care Team (Late st Contact Info) Description 07/05/2023 Orders Only [address] [place] [address] Roberta Alex MD [address] [place] [address] Social History Tobacco Use Types Packs/Day Years Used Date Smoking Tobacco: Every Day Cigarettes Smokeless Tobacco: Never Alcohol Use Standard Drinks/Week Comments Not Currently 0 (1 standard drink = 0.6 oz pur e alcohol) Comments No Sex and Gender Information Value Date Recorded Sex Assigned at Not on file Legal Sex Female 11:30 PM CDS SALES ADVISOR Gender Identity Female 11/10/2021 3:09 PM CDT Sexual Orientation Straight 11/10/2021 3: 09 PM CDT documented as of this encounter Functional Status * RETIRED Are you deaf or do you have serious difficulty hearing Answer Date of Assessment Author Status No 07/30/2020 10:48 PM CDS SALES ADVISOR Acti ve * RETIRED Are you blind or do you have serious difficulty seeing, even when wearing glasses? Answer Date of Assessment Author Status No 07/30/2020 10:46 PM CDS SALES ADVISOR Acti ve * Do you have serious difficulty walking or climbing stairs? Answer Date of Assessment Author Status No 07/30/2020 10:46 PM CDS SALES ADVISOR Bringuet, Nella C, RN Active * Do you have difficulty dressing or bathing? Answer Date of Assessment Author Status No 07/30/2020 10:46 PM CDS SALES ADVISOR Nella Le RN Active * Because of [...] st Contact Info) Description 09/25/2024 11:30 AM CDS SALES ADVISOR Appointment [facility] [address] [place] [address] Roberta Alex MD [address] [place] [address] 09/25/2024 11:40 AM CDS SALES ADVISOR Office Visit [facility] [address] [place] [address] Roberta Alex MD [address] [place] [address] documented as of this encounter Results * (ABNORMAL) COMPREHENSIVE METABOLIC PANEL (10/03/2023 1:07 PM CDT) [facility] SODIUM S/P/B 139 136 - 145 MMOL/L 10/03/2023 1:[address] [facility] POTASSIUM S/P/B 3.8 3.5 - 5.1 MMOL/L 10/03/2023 1:[address] [facility] CHLORIDE S/P/B 104 98 - 107 MMOL/L 10/03/2023 1:[address] [facility] CO2 25.2 21.0 - 32.0 MMOL/L 10/03/2023 1:29 [facility] GLU[facility]SE 122(H) 70 - 99 MG/DL 10/03/2023 1:29 PM [facility] Comment: FASTING GLUCOSE 100 TO 125 MG/DL IS CONSISTENT WITH IMPAIRED FASTING GLUCOSE. FASTING GLUCOSE >125 MG/DL IS CONSISTENT WITH DIABETES. RANDOM GLUCOSE >200 MG/DL WITH HYPERGLYCEMIC SYMPTOMS IS CONSISTENT WITH DIABETES. PER ADA GUIDELINES BUN 10 6 - 24 MG/DL 10/03/2023 1:[address] [facility] CREATININE S/P/B 0.72 0.55 - 1.02 MG/DL 10/03/2023 1:29 PM [facility] CALCIUM S/P/B 9.1 8.4 - 10.5 MG/DL 10/03/2023 1:29 PM [facility] BILIRUBIN TOTAL S/P/B 0.4 0.2 - 1.0 MG/DL 10/03/2023 1:29 PM [facility] Comment: THIS ASSAY IS NOT RECOMMENDED FOR PATIENTS UNDERGOING TREATMENT WITH ELTROMBOPAG DUE TO THE POTENTIAL FOR FALSELY ELEVATED RESULTS. ALKALINE PHOSPHATASE S/P/B 65 37 - 98 U/L 10/03/2023 1:29 PM [facility] AST 16 15 - 37 U/L 10/03/2023 1:29 PM [facility] ALT 34 14 - 59 U/L 10/03/2023 1:29 PM [facility] TOTAL PROTEIN S/P/B 6.9 6.4 - 8.2 G/DL 10/03/2023 1:29 PM [facility] ALBUMIN S/P/B 3.6 3.4 - 5.0 G/DL 10/03/2023 1:29 PM [facility] ANION GAP 9.8 5.0 - 15.0 MMOL/L 10/03/2023 1:29 PM [facility] OSMOLALITY (CALC) 288 MOSM/KG 024 1:29 PM [facility] Comment:REFERENCE RANGE NOT ESTABLISHED GFR ESTIMATE >90 >89 ML/MIN/1. 73 M2 10/03/2023 1:[address] [facility] GFR NOTES GFR REFERENCE S: 10/03/2023 1:[address] [facility] Comment: THE ESTIMATED GFR IS [...] us Carey [place]STELLANOS LABORATORY Final Res ult [facility] [address] [id number], * (ABNORMAL) CBC W/DIFF AUTOMATED (10/03/2023 1:07 PM CDT) WBC 10.03 4.00 - 10.80 x10'3/uL 10/03/2023 1:[address] [facility] RBC 4.71 4.10 - 5.40 x10'6/uL 10/03/2023 1:[address] [facility] HGB 13.5 12.0 - 16.0 G/DL 10/03/2023 1:[address] [facility] HCT 42.2 36.0 - 47.0 % 10/03/2023 1:[address] [facility] MCV 89.6 78.0 - 100.0 FL 10/03/2023 1:[address] [facility] MCH 28.7 27.0 - 31.0 PG 10/03/2023 1:[address] [facility] MCHC 32.0(L) 33.0 - 36.0 G/DL 10/03/2023 1:[address] [facility] RDW 12.5 11.5 - 14.5 % 10/03/2023 1:[address] [facility] PLT 63(L) 150 - 350 x10'3/uL 10/03/2023 1:[address] [facility] MPV 14.2(H) 7.4 - 10.4 FL 10/03/2023 1:[address] [facility] CBC COMMENT NORMAL REFERENCE RANGE NOT ESTABLISHED FOR THE PROPORTIONAL LEUKOCYTE DIFFERENTIAL. 10/03/2023 1:[address] [facility] NEUTROPHILS % 78.8 % 10/03/2023 1:[address] [facility] LYMPHOCYTES % 13.1 % 10/03/2023 1:[address] [facility] MONOCYTES % 3.9 % 10/03/2023 1:[address] [facility] EOSINOPHILS % 3.4 % 10/03/2023 1:[address] [facility] BASOPHILS % 0.5 % 10/03/2023 1:[address] [facility] IMMATURE GRANS % 0.3 % 10/03/19 24 1:[address] [facility] NRBC 0.0 % 10/03/2023 1:[address] [facility] ABS. NEUTROPHILS 7.90 1.60 - 8.30 x10'3/uL 10/03/2023 1:[address] [facility] Comment:CORRECTED ON 10/02 A T 1349: PREVIOUSLY REPORTED 7.91 ABS. LYMPHOCYTES 1.31 0.80 - 4.70 x10'3/uL 10/03/2023 1:[address] [facility] ABS. MONOCYTES 0.39 0.00 - 1.50 x10'3/uL 10/03/2023 1:[address] [facility] ABS. EOSINOPHILS 0.34 0.00 - 0.40 x10'3/uL 10/03/2023 1:[address] [facility] ABS. BASOPHILS 0.05 0.00 - 0.20 x10'3/uL 10/03/2023 1:[address] [facility] ABS. IMMATURE GRANULOCYTES 0.03 0.00 - 0.03 x10'3/uL 10/03/2023 1:[address] [facility] ABS. NUCLEATED RBC'S 0.00 0.00 x10'3/uL 10/03/2023 1:[address] [facility] PLT MORPH. DECREASED 10/03/2023 1:[address] [facility] RBC MORPHOLOGY NORMAL 10/03/2023 1:[address] [facility] 10/03/2023 1:07 PM CDT Carey CASTELLANOS [facility]ORAT[facility] Edited Re sult - Final [facility] [address] [place] [address], documented in this encounter Visit Diagnoses Diagnosis Iron deficiency anemia due to chronic blood loss- Primary Iron deficiency anemia secondary to blood loss (chronic) documented in this encounter Additional Health Concerns Infection Onset Date Last Indicated Resolved Time MRSA 06/05/2021 06/05/2021 documented as of this encounter Care Teams Delivery Table Operator Relationship Specialty Start Date End Date Alejandro Blevins MD PCP - General FAMILY PRACTICE 12/10/19 documented as of this encounter
--- OUTSIDE RECORDS SUMMARY | 2024-07-11 09:51 | XMS_ITS | Encounter Summary ---
Author Organization [facility] Address [address] [place] [address]. [place], [place] [address] [place] [address] Care Team Providers Care Marquetry Worker Name Role Phone Alejandro Blevins MD Primary Care Provider [phone] Encounter Details Date Type Department Care Team [...] on file Legal Sex Female 11:30 PM CHIEF DATA OFFICER Gender Identity Female 11/10/2021 3:09 PM CDT Sexual Orientation Straight 11/10/2021 3: 09 PM CDT documented as of this encounter Functional Status * RETIRED Are you deaf or do you have serious difficulty hearing Answer Date of Assessment Author Status No 07/30/2020 10:48 PM CHIEF DATA OFFICER Acti ve * RETIRED Are you blind or do you have serious difficulty seeing, even when wearing glasses? Answer Date of Assessment Author Status No 07/30/2020 10:46 PM CHIEF DATA OFFICER Acti ve * Do you have serious difficulty walking or climbing stairs? Answer Date of Assessment Author Status No 07/30/2020 10:46 PM CHIEF DATA OFFICER Nella Le RN Active * Do you have difficulty dressing or bathing? Answer Date of Assessment Author Status No 07/30/2020 10:46 PM CHIEF DATA OFFICER Nella Le RN Active * Because of a physical, mental, or emotional condition, do you have difficulty doing errands alone such as visiting a doctor's office or shopping? Answer Date of Assessment Author Status No 07/30/2020 10:46 PM CHIEF DATA OFFICER Nella Le RN Active documented as of this encounter Mental Status * Because of a physical, mental, or emotional condition, do you have serious difficulty concentrating, remembering, or making decisions? Answer Entry Date Author Status No 07/30/2020 10:46 PM CHIEF DATA OFFICER Nella Le RN Active documented in this encounter Plan of Treatment Upcoming Encounters Date Type Department Care Team (Late st Contact Info) Description 09/25/2024 11:30 AM CHIEF DATA OFFICER Appointment [facility] [address] [facility] [place] [address] Roberta Alex MD [address] [place] [address] 09/25/2024 11:40 AM CHIEF DATA OFFICER Office Visit [facility] [address] [place] [address] Roberta Alex MD [address] [place] [address] documented as of this encounter Visit Diagnoses Not on filedocumented in this encounter Additional Health Concerns Infection Onset Date Last Indicated Resolved Time MRSA 06/05/2021 06/05/2021 documented as of this encounter Care Teams Marquetry Worker Relationship Specialty Start Date End Date Alejandro Blevins MD PCP - General FAMILY PRACTICE 12/10/19 documented as of this encounter
--- OUTSIDE RECORDS SUMMARY | 2024-07-11 09:51 | XMS_ITS | Encounter Summary ---
Author Organization [facility] Address [address] [place] [address]. [place], [place] [address] [place] [address] Care Team Providers Care Beef Breaker Name Role Phone Alejandro Blevins MD Primary Care Provider [phone] Encounter Details Date Type Department Care Team [...] on file Legal Sex Female 11:30 PM JET SKI MECHANIC Gender Identity Female 11/10/2021 3:09 PM CDT Sexual Orientation Straight 11/10/2021 3: 09 PM CDT documented as of this encounter Functional Status * RETIRED Are you deaf or do you have serious difficulty hearing Answer Date of Assessment Author Status No 07/30/2020 10:48 PM JET SKI MECHANIC Acti ve * RETIRED Are you blind or do you have serious difficulty seeing, even when wearing glasses? Answer Date of Assessment Author Status No 07/30/2020 10:46 PM JET SKI MECHANIC Acti ve * Do you have serious difficulty walking or climbing stairs? Answer Date of Assessment Author Status No 07/30/2020 10:46 PM JET SKI MECHANIC Nella Le RN Active * Do you have difficulty dressing or bathing? Answer Date of Assessment Author Status No 07/30/2020 10:46 PM JET SKI MECHANIC Nella Le RN Active * Because of a physical, mental, or emotional condition, do you have difficulty doing errands alone such as visiting a doctor's office or shopping? Answer Date of Assessment Author Status No 07/30/2020 10:46 PM JET SKI MECHANIC Nella Le RN Active documented as of this encounter Mental Status * Because of a physical, mental, or emotional condition, do you have serious difficulty concentrating, remembering, or making decisions? Answer Entry Date Author Status No 07/30/2020 10:46 PM JET SKI MECHANIC Nella Le RN Active documented in this encounter Plan of Treatment Upcoming Encounters Date Type Department Care Team (Late st Contact Info) Description 09/25/2024 11:30 AM JET SKI MECHANIC Appointment [facility] [address] [facility] [facility] [place] [address] Roberta Alex MD [address] [place] [address] 09/25/2024 11:40 AM JET SKI MECHANIC Office Visit [facility] [address] [place] [address] Roberta Alex MD [address] [place] [address] documented as of this encounter Visit Diagnoses Not on filedocumented in this encounter Additional Health Concerns Infection Onset Date Last Indicated Resolved Time MRSA 06/05/2021 06/05/2021 documented as of this encounter Care Teams Beef Breaker Relationship Specialty Start Date End Date Alejandro Blevins MD PCP - General FAMILY PRACTICE 12/10/19 documented as of this encounter
--- OUTSIDE RECORDS SUMMARY | 2024-07-11 09:51 | XMS_ITS | Encounter Summary ---
Author Organization [facility] Address [address] [place] [address]. [place] [address] [place] [address] Care Team Providers Care Commercial Electrician Name Role Phone Alejandro Blevins MD Primary Care Provider [phone] Encounter Details Date Type Department Care Team (Latest Contact Info) Description 10/03/2023 12:50 PM CDT - 10/03/2023 11:59 PM CDT Hospital Encounter [address] [place] [address] Roberta Alex MD [address] [place] [address] Discharge Disposition: Home or Self Care (Routine Discharge) Social History Tobacco Use Types Packs/Day Years Used Date Smoking Tobacco: Every Day Cigarettes Smokeless Tobacco: Never Alcohol Use Standard Drinks/Week Comments Not Currently 0 (1 standard drink = 0.6 oz pur e alcohol) Comments No Sex and Gender Information Value Date Recorded Sex Assigned at Not on file Legal Sex Female 11:30 PM BRAIN PICKER Gender Identity Female 11/10/2021 3:09 PM CDT Sexual Orientation Straight 11/10/2021 3: 09 PM CDT documented as of this encounter Functional Status * RETIRED Are you deaf or do you have serious difficulty hearing Answer Date of Assessment Author Status No 07/30/2020 10:48 PM BRAIN PICKER Acti ve * RETIRED Are you blind or do you have serious difficulty seeing, even when wearing glasses? Answer Date of Assessment Author Status No 07/30/2020 10:46 PM BRAIN PICKER Acti ve * Do you have [...] st Contact Info) Description 09/25/2024 11:30 AM BRAIN PICKER Appointment [facility] [place] [address] Roebrta Alex MD [address] [place] [address] 09/25/2024 11:40 AM BRAIN PICKER Office Visit [facility] [place] [address] Roberta Alex MD [address] [place] [address] documented as of this encounter Procedures Procedure [...] - 145 MMOL/L 10/03/2023 1:29 PM CDT [facility] POTASSIUM S/P/B 3.8 3.5 - 5.1 MMOL/L 10/03/2023 1:29 PM CDT [facility] CHLORIDE S/P/B 104 98 - 107 MMOL/L 10/03/2023 1:29 PM CDT [facility] CO2 25.2 21.0 - 32.0 MMOL/L 10/03/2023 1:29 PM CDT [facility] GLUCOSE 122(H) 70 - 99 MG/DL 10/03/2023 1:29 PM T [facility] Comment: FASTING GLUCOSE 100 TO 125 MG/DL IS CONSISTENT WITH IMPAIRED FASTING GLUCOSE. FASTING GLUCOSE >125 MG/DL IS CONSISTENT WITH DIABETES. RANDOM GLUCOSE >200 MG/DL WITH HYPERGLYCEMIC SYMPTOMS IS CONSISTENT WITH DIABETES. PER ADA GUIDELINES BUN 10 6 - 24 MG/DL 10/03/2023 1:29 PM T [facility] CREATININE S/P/B 0.72 0.55 - 1.02 MG/DL 10/03/2023 1:29 PM T [facility] CALCIUM S/P/B 9.1 8.4 - 10.5 MG/DL 10/03/2023 1:29 PM T [facility] BILIRUBIN TOTAL S/P/B 0.4 0.2 - 1.0 MG/DL 10/03/2023 1:29 PM T [facility] Comment: THIS ASSAY IS NOT RECOMMENDED FOR PATIENTS UNDERGOING TREATMENT WITH ELTROMBOPAG DUE TO THE POTENTIAL FOR FALSELY ELEVATED RESULTS. ALKALINE PHOSPHATASE S/P/B 65 37 - 98 U/L 10/03/2023 1:29 PM T [facility] AST 16 15 - 37 U/L 10/03/2023 1:29 PM [facility] ALT 34 14 - 59 U/L 10/03/2023 1:29 PM [facility] TOTAL PROTEIN S/P/B 6.9 6.4 - 8.2 G/DL 10/03/2023 1:29 PM [facility] ALBUMIN S/P/B 3.6 3.4 - 5.0 G/DL 10/03/2023 1:29 PM [facility] ANION GAP 9.8 5.0 - 15.0 MMOL/L 10/03/2023 1:29 PM [facility] OSMOLALITY (CALC) 288 MOSM/KG 024 1:29 PM [facility] Comment:REFERENCE RANGE NOT ESTABLISHED GFR ESTIMATE >90 >89 ML/MIN/1. 73 M2 10/03/2023 1:29 PM T [facility] GFR NOTES GFR REFERENCE S: 10/03/2023 1:29 PM CDT [facility] Comment: THE ESTIMATED GFR IS [...] us [facility] Final Res ult [facility] [address] [place] [address], * (ABNORMAL) CBC W/DIFF AUTOMATED (10/03/2023 1:07 PM CDT) WBC 10.03 4.00 - 10.80 x10'3/uL 10/03/2023 1:42 PM CDT [facility] RBC 4.71 4.10 - 5.40 x10'6/uL 10/03/2023 1:42 PM CDT [facility] HGB 13.5 12.0 - 16.0 G/DL 10/03/2023 1:42 PM CDT [facility] HCT 42.2 36.0 - 47.0 % 10/03/2023 1:42 PM CDT [facility] MCV 89.6 78.0 - 100.0 FL 10/03/2023 1:42 PM CDT [facility] MCH 28.7 27.0 - 31.0 PG 10/03/2023 1:42 PM CDT [facility] MCHC 32.0(L) 33.0 - 36.0 G/DL 10/03/2023 1:42 PM CDT [facility] RDW 12.5 11.5 - 14.5 % 10/03/2023 1:42 PM CDT [facility] PLT 63(L) 150 - 350 x10'3/uL 10/03/2023 1:42 PM CDT [facility] MPV 14.2(H) 7.4 - 10.4 FL 10/03/2023 1:42 PM CDT [facility] CBC COMMENT NORMAL REFERENCE RANGE NOT ESTABLISHED FOR THE PROPORTIONAL LEUKOCYTE DIFFERENTIAL. 10/03/2023 1:42 PM CDT [facility] NEUTROPHILS % 78.8 % 10/03/2023 1:43 PM CDT [facility] LYMPHOCYTES % 13.1 % 10/03/2023 1:43 PM CDT [facility] MONOCYTES % 3.9 % 10/03/2023 1:43 PM CDT [facility] EOSINOPHILS % 3.4 % 10/03/2023 1:43 PM CDT [facility] BASOPHILS % 0.5 % 10/03/2023 1:43 PM CDT [facility] IMMATURE GRANS % 0.3 % 10/03/19 24 1:43 PM CDT [facility] NRBC 0.0 % 10/03/2023 1:43 PM CDT [facility] ABS. NEUTROPHILS 7.90 1.60 - 8.30 x10'3/uL 10/03/2023 1:49 PM CDT [facility] Comment:CORRECTED ON 10/02 A T 1349: PREVIOUSLY REPORTED 7.91 ABS. LYMPHOCYTES 1.31 0.80 - 4.70 x10'3/uL 10/03/2023 1:43 PM CDT [facility] ABS. MONOCYTES 0.39 0.00 - 1.50 x10'3/uL 10/03/2023 1:43 PM CDT [facility] ABS. EOSINOPHILS 0.34 0.00 - 0.40 x10'3/uL 10/03/2023 1:43 PM CDT [facility] ABS. BASOPHILS 0.05 0.00 - 0.20 x10'3/uL 10/03/2023 1:43 PM CDT [facility] ABS. IMMATURE GRANULOCYTES 0.03 0.00 - 0.03 x10'3/uL 10/03/2023 1:43 PM CDT [facility] ABS. NUCLEATED RBC'S 0.00 0.00 x10'3/uL 10/03/2023 1:43 PM CDT [facility] PLT MORPH. DECREASED 10/03/2023 1:49 PM CDT [facility] RBC MORPHOLOGY NORMAL 10/03/2023 1:49 PM CDT [facility] 10/03/2023 1:07 PM CDT [facility] Edited Re sult - Final [facility] [address] [place] [address], documented in this encounter Visit Diagnoses Diagnosis Iron deficiency anemia due to chronic blood loss Iron deficiency anemia secondary to blood loss (chronic) documented in this encounter Additional Health Concerns Infection Onset Date Last Indicated Resolved Time MRSA 06/05/2021 06/05/2021 documented as of this encounter Care Teams Commercial Electrician Relationship Specialty Start Date End Date Alejandro Blevins MD PCP - General FAMILY PRACTICE 12/10/19 documented as of this encounter
--- OUTSIDE RECORDS SUMMARY | 2024-07-11 09:52 | XMS_ITS | Encounter Summary ---
Author Organization [facility] Address [address] [place] [address]. [place], [place] [address] [place] [address] Care Team Providers Care Laboratory Apparatus Glass Blower Name Role Phone Alejandro Blevins MD Primary Care Provider [phone] Encounter Details Date Type Department Care Team [...] on file Legal Sex Female 11:30 PM FILAMENT COIL WINDER Gender Identity Female 11/10/2021 3:09 PM CDT Sexual Orientation Straight 11/10/2021 3: 09 PM CDT documented as of this encounter Functional Status * RETIRED Are you deaf or do you have serious difficulty hearing Answer Date of Assessment Author Status No 07/30/2020 10:48 PM FILAMENT COIL WINDER Acti ve * RETIRED Are you blind or do you have serious difficulty seeing, even when wearing glasses? Answer Date of Assessment Author Status No 07/30/2020 10:46 PM FILAMENT COIL WINDER Acti ve * Do you have serious difficulty walking or climbing stairs? Answer Date of Assessment Author Status No 07/30/2020 10:46 PM FILAMENT COIL WINDER Nella Le RN Active * Do you have difficulty dressing or bathing? Answer Date of Assessment Author Status No 07/30/2020 10:46 PM FILAMENT COIL WINDER Nella Le RN Active * Because of a physical, mental, or emotional condition, do you have difficulty doing errands alone such as visiting a doctor's office or shopping? Answer Date of Assessment Author Status No 07/30/2020 10:46 PM FILAMENT COIL WINDER Nella Le RN Active documented as of this encounter Mental Status * Because of a physical, mental, or emotional condition, do you have serious difficulty concentrating, remembering, or making decisions? Answer Entry Date Author Status No 07/30/2020 10:46 PM FILAMENT COIL WINDER Nella Le RN Active documented in this encounter Plan of Treatment Upcoming Encounters Date Type Department Care Team (Late st Contact Info) Description 09/25/2024 11:30 AM FILAMENT COIL WINDER Appointment [facility] [address] [address] Roberta Alex MD [address] [place] [address] 09/25/2024 11:40 AM FILAMENT COIL WINDER Office Visit [facility] [address] [place] [address] Roberta Alex MD [address] [place] [address] documented as of this encounter Visit Diagnoses Not on filedocumented in this encounter Additional Health Concerns Infection Onset Date Last Indicated Resolved Time MRSA 06/05/2021 06/05/2021 documented as of this encounter Care Teams Laboratory Apparatus Glass Blower Relationship Specialty Start Date End Date Alejandro Blevins MD PCP - General FAMILY PRACTICE 12/10/19 documented as of this encounter
--- OUTSIDE RECORDS SUMMARY | 2024-07-11 09:52 | XMS_ITS | Encounter Summary ---
Author Organization [facility] Address [facility] [place] [address] [place] [address] Care Team Providers Care Outside Machinist Supervisor Name Role Phone Alejandro Blevins MD Primary Care Provider [phone] Encounter Details Date Type Department Care Team (Latest Contact Info) Description 07/05/2023 2:30 PM TRAFFIC CONTROL OFFICER - 07/05/2023 11:59 PM TRAFFIC CONTROL OFFICER Hospital Encounter [address] [place] [address] Roberta Alex MD [address] [place] [address] Discharge Disposition: Home or Self Care (Routine Discharge) Social History Tobacco Use Types Packs/Day Years Used Date Smoking Tobacco: Every Day Cigarettes Smokeless Tobacco: Never Alcohol Use Standard Drinks/Week Comments Not Currently 0 (1 standard drink = 0.6 oz pur e alcohol) Comments No Sex and Gender Information Value Date Recorded Sex Assigned at Not on file Legal Sex Female 11:30 PM TRAFFIC CONTROL OFFICER Gender Identity Female 11/10/2021 3:09 PM CDT Sexual Orientation Straight 11/10/2021 3: 09 PM CDT documented as of this encounter Functional Status * RETIRED Are you deaf or do you have serious difficulty hearing Answer Date of Assessment Author Status No 07/30/2020 10:48 PM TRAFFIC CONTROL OFFICER Acti ve * RETIRED Are you blind or do you have serious difficulty seeing, even when wearing glasses? Answer Date of Assessment Author Status No 07/30/2020 10:46 PM TRAFFIC CONTROL OFFICER Acti ve * Do you have [...] st Contact Info) Description 09/25/2024 11:30 AM TRAFFIC CONTROL OFFICER Appointment [facility] [address] [place] [address] Roberta Alex MD [address] [place] [address] 09/25/2024 11:40 AM TRAFFIC CONTROL OFFICER Office Visit [facility] [place] [address] Roberta Alex MD [address] [place] [address] documented as of this encounter Procedures Procedure Name Priority Date/Time Associated Diagnosis Comments COMPREHENSIVE METABOLIC PANEL Routine 07/05/2023 2:43 PM TRAFFIC CONTROL OFFICER Chronic ITP (idiopathic thrombocytopenia) ([facility] HHS/HCC) CBC W/DIFF AUTOMATED Routine 07/05/2023 2:43 PM TRAFFIC CONTROL OFFICER Chronic ITP (idiopathic thrombocytopenia) ([facility] H[facility]/HCC) documented in this encounter Results * COMPREHENSIVE METABOLIC PANEL (07/05/2023 2:43 PM TRAFFIC CONTROL OFFICER) SODIUM S/P/B 140 136 - 145 MMOL/L 07/05/2023 3:39 PM [facility] POTASSIUM S/P/B 3.9 3.5 - 5.1 MMOL/L 07/05/2023 3:39 PM [facility] CHLORIDE S/P/B 105 98 - 107 MMOL/L 07/05/2023 3:39 PM [facility] CO2 25.7 21.0 - 32.0 MMOL/L 07/05/2023 3:39 PM [facility] GLUCOSE 91 70 - 99 MG/DL 07/05/2023 3:39 PM [facility] Comment: MILD LIPEMIA. RESULT MAY BE AFFECTED. FASTING GLUCOSE 100 TO 125 MG/DL IS CONSISTENT WITH IMPAIRED FASTING GLUCOSE. FASTING GLUCOSE >125 MG/DL IS CONSISTENT WITH DIABETES. RANDOM GLUCOSE >200 MG/DL WITH HYPERGLYCEMIC SYMPTOMS IS CONSISTENT WITH DIABETES. PER ADA GUIDELINES BUN 16 6 - 24 MG/DL 07/05/2023 3:39 PM [facility] CREATININE S/P/B 0.86 0.55 - 1.02 MG/DL 07/05/2023 3:39 PM [facility] CALCIUM S/P/B 8.5 8.4 - 10.5 MG/DL 07/05/2023 3:39 PM [facility] BILIRUBIN TOTAL S/P/B 0.2 0.2 - 1.0 MG/DL 07/05/2023 3:39 PM [facility] Comment: THIS ASSAY IS NOT RECOMMENDED FOR PATIENTS UNDERGOING TREATMENT WITH ELTROMBOPAG DUE TO THE POTENTIAL FOR FALSELY ELEVATED RESULTS. ALKALINE PHOSPHATASE S/P/B 70 37 - 98 U/L 07/05/2023 3:39 PM [facility] AST 17 15 - 37 U/L 07/05/2023 3:39 PM [facility] ALT 24 14 - 59 U/L 07/05/2023 3:39 PM [facility] TOTAL PROTEIN S/P/B 6.9 6.4 - 8.2 G/DL 07/05/2023 3:39 PM [facility] ALBUMIN S/P/B 3.5 3.4 - 5.0 G/DL 07/05/2023 3:39 PM [facility] ANION GAP 9.3 5.0 - 15.0 MMOL/L 07/05/2023 3:39 PM [facility] OSMOLALITY (CALC) 291 MOSM/KG 023 3:39 PM [facility] Comment:REFERENCE RANGE NOT ESTABLISHED GFR ESTIMATE >90 >89 ML/MIN/1. 73 M2 07/05/2023 3:39 PM [facility] GFR NOTES GFR REFERENCE S: 07/05/2023 3:39 PM [facility] Comment: THE ESTIMATED GFR IS [...] FAILURE: <15 ml/min/1.73 m2 07/05/2023 2:43 PM TRAFFIC CONTROL OFFICER us Roberta Alex MD LABORATORY Final Result [facility] [address] [place] [address], * (ABNORMAL) CBC W/DIFF AUTOMATED (07/05/2023 2:43 PM TRAFFIC CONTROL OFFICER) WBC 9.85 4.00 - 10.80 x10'3/uL 07/05/2023 3:09 PM TRAFFIC CONTROL OFFICER [facility] RBC 4.63 4.10 - 5.40 x10'6/uL 07/05/2023 3:09 PM [facility] HGB 13.5 12.0 - 16.0 G/DL 07/05/2023 3:09 PM TRAFFIC CONTROL OFFICER [facility] HCT 42.4 36.0 - 47.0 % 07/05/2023 3:09 PM [facility] MCV 91.6 78.0 - 100.0 FL 07/05/2023 3:09 PM TRAFFIC CONTROL OFFICER [facility] MCH 29.2 27.0 - 31.0 PG 07/05/2023 3:09 PM TRAFFIC CONTROL OFFICER [facility] MCHC 31.8(L) 33.0 - 36.0 G/DL 07/05/2023 3:09 PM [facility] RDW 12.9 11.5 - 14.5 % 07/05/2023 3:09 PM [facility] PLT 39(L) 150 - 350 x10'3/uL 07/05/2023 3:09 PM [facility] MPV RESULTS NOT AVAILABLE 7.4 - 10.4 FL 07/05/2023 3:09 PM [facility] CBC COMMENT NORMAL REFERENCE RANGE NOT ESTABLISHED FOR THE PROPORTIONAL LEUKOCYTE DIFFERENTIAL. 07/05/2023 3:09 PM TRAFFIC CONTROL OFFICER [facility] NEUTROPHILS % 66.3 % 07/05/2023 3:20 PM [facility] LYMPHOCYTES % 18.0 % 07/05/2023 3:20 PM TRAFFIC CONTROL OFFICER [facility] MONOCYTES % 5.5 % 07/05/2023 3:20 PM TRAFFIC CONTROL OFFICER [facility] EOSINOPHILS % 9.0 % 07/05/2023 3:20 PM TRAFFIC CONTROL OFFICER [facility] BASOPHILS % 0.8 % 07/05/2023 3:20 PM [facility] IMMATURE GRANS % 0.4 % 07/05/20 3:20 PM [facility] NRBC 0.0 % 07/05/2023 3:20 PM [facility] ABS. NEUTROPHILS 6.53 1.60 - 8.30 x10'3/uL 07/05/2023 3:20 PM [facility] ABS. LYMPHOCYTES 1.77 0.80 - 4.70 x10'3/uL 07/05/2023 3:20 PM [facility] ABS. MONOCYTES 0.54 0.00 - 1.50 x10'3/uL 07/05/2023 3:20 PM [facility] ABS. EOSINOPHILS 0.89(H) 0.00 - 0.40 x10'3/uL 07/05/2023 3:20 PM [facility] ABS. BASOPHILS 0.08 0.00 - 0.20 x10'3/uL 07/05/2023 3:20 PM [facility] ABS. IMMATURE GRANULOCYTES 0.04(H) 0.00 - 0.03 x10'3/uL 07/05/2023 3:20 PM [facility] ABS. NUCLEATED RBC'S 0.00 0.00 x10'3/uL 07/05/2023 3:20 PM [facility] PLT MORPH. DECREASED 07/05/2023 3:20 PM TRAFFIC CONTROL OFFICER [facility] RBC MORPHOLOGY 1+ 07/05/2023 3:20 PM TRAFFIC CONTROL OFFICER [facility] Comment:ANISOCYTOSIS 07/05/2023 2:43 PM TRAFFIC CONTROL OFFICER Roberta Alex MD LABORATORY Final Result [facility] [address] [place] [address], documented in this encounter Visit Diagnoses Diagnosis Chronic ITP (idiopathic thrombocytopenia) ([facility]/HCC [facility]/HCC) Immune thrombocytopenic purpura documented in this encounter Additional Health Concerns Infection Onset Date Last Indicated Resolved Time MRSA 06/05/2021 06/05/2021 documented as of this encounter Care Teams Outside Machinist Supervisor Relationship Specialty Start Date End Date Alejandro Blevins MD PCP - General FAMILY PRACTICE 12/10/19 documented as of this encounter
--- OUTSIDE RECORDS SUMMARY | 2024-07-11 09:52 | XMS_ITS | Encounter Summary ---
Author Organization [facility] Address [facility] [place] [address] [place] [address] Care Team Providers Care Sushi Chef Name Role Phone Alejandro Blevins MD Primary Care Provider [phone] Encounter Details Date Type Department Care Team (Latest Contact Info) Description 06/23/2023 11:19 AM CERTIFICATION TECHNICIAN Hospital Encounter [facility] [address] [place] [address] Roberta Alex MD [address] [place] [address] Discharge Disposition: Home or Self Care (Routine Discharge) Social History Tobacco Use Types Packs/Day Years Used Date Smoking Tobacco: Every Day Cigarettes Smokeless Tobacco: Never Alcohol Use Standard Drinks/Week Comments Not Currently 0 (1 standard drink = 0.6 oz pur e alcohol) Comments No Sex and Gender Information Value Date Recorded Sex Assigned at Not on file Legal Sex Female 11:30 PM CERTIFICATION TECHNICIAN Gender Identity Female 11/10/2021 3:09 PM CDT Sexual Orientation Straight 11/10/2021 3: 09 PM CDT documented as of this encounter Functional Status * RETIRED Are you deaf or do you have serious difficulty hearing Answer Date of Assessment Author Status No 07/30/2020 10:48 PM CERTIFICATION TECHNICIAN Acti ve * RETIRED Are you blind or do you have serious difficulty seeing, even when wearing glasses? Answer Date of Assessment Author Status No 07/30/2020 10:46 PM CERTIFICATION TECHNICIAN Acti ve * Do you have [...] st Contact Info) Description 09/25/2024 11:30 AM CERTIFICATION TECHNICIAN Appointment [facility] [address] [place] [address] Roberta Alex MD [address] [place], [place] [id number] 09/25/2024 11:40 AM CERTIFICATION TECHNICIAN Office Visit [facility] [place] [address] Roberta Alex MD [address] [place], [place] [id number] documented as of this encounter Procedures Procedure Name Priority Date/Time Associated Diagnosis Comments CBC W/DIFF AUTOMATED Routine 06/23/2023 11:33 AM CERTIFICATION TECHNICIAN Iron deficiency anemia secondary to inadequate dietary iron intake documented in this encounter Results * (ABNORMAL) CBC W/DIFF AUTOMATED (06/23/2023 11:33 AM CERTIFICATION TECHNICIAN) WBC 16.97(H) 4.00 - 10.80 x10'3/uL 06/23/2023 11:45 AM CERTIFICATION TECHNICIAN [facility] RBC 4.74 4.10 - 5.40 x10'6/uL 06/23/2023 11:45 AM CERTIFICATION TECHNICIAN [facility] HGB 13.8 12.0 - 16.0 G/DL 06/23/2023 11:45 AM CERTIFICATION TECHNICIAN [facility] HCT 42.5 36.0 - 47.0 % 06/23/2023 11:45 AM CERTIFICATION TECHNICIAN [facility] MCV 89.7 78.0 - 100.0 FL 06/23/2023 11:45 AM CERTIFICATION TECHNICIAN [facility] MCH 29.1 27.0 - 31.0 PG 06/23/2023 11:45 AM CERTIFICATION TECHNICIAN [facility] MCHC 32.5(L) 33.0 - 36.0 G/DL 06/23/2023 11:45 AM CERTIFICATION TECHNICIAN [facility] RDW 12.6 11.5 - 14.5 % 06/23/2023 11:45 AM [facility] PLT 48(L) 150 - 350 x10'3/uL 06/23/2023 11:45 AM [facility] MPV RESULTS NOT AVAILABLE 7.4 - 10.4 FL 06/23/2023 11:45 AM [facility] CBC COMMENT NORMAL REFERENCE RANGE NOT ESTABLISHED FOR THE PROPORTIONAL LEUKOCYTE DIFFERENTIAL. 06/23/2023 11:45 AM [facility] NEUTROPHILS % 73.5 % 06/23/2023 12:34 PM [facility] LYMPHOCYTES % 14.7 % 06/23/2023 12:34 PM [facility] MONOCYTES % 5.0 % 06/23/2023 12:34 PM [facility] EOSINOPHILS % 5.8 % 06/23/2023 12:34 PM [facility] BASOPHILS % 0.6 % 06/23/2023 12:34 PM [facility] IMMATURE GRANS % 0.4 % 06/23/20 12:34 PM [facility] NRBC 0.0 % 06/23/2023 12:34 PM [facility] ABS. NEUTROPHILS 12.48(H) 1.60 - 8.30 x10'3/uL 06/23/2023 12:34 PM [facility] ABS. LYMPHOCYTES 2.49 0.80 - 4.70 x10'3/uL 06/23/2023 12:34 PM [facility] ABS. MONOCYTES 0.85 0.00 - 1.50 x10'3/uL 06/23/2023 12:34 PM [facility] ABS. EOSINOPHILS 0.98(H) 0.00 - 0.40 x10'3/uL 06/23/2023 12:34 PM [facility] ABS. BASOPHILS 0.10 0.00 - 0.20 x10'3/uL 06/23/2023 12:34 PM [facility] ABS. IMMATURE GRANULOCYTES 0.07(H) 0.00 - 0.03 x10'3/uL 06/23/2023 12:34 PM [facility] ABS. NUCLEATED RBC'S 0.00 0.00 x10'3/uL 06/23/2023 12:34 PM CERTIFICATION TECHNICIAN [facility] PLT MORPH. DECREASED 06/23/2023 12:34 PM CERTIFICATION TECHNICIAN [facility] RBC MORPHOLOGY NORMAL 06/23/2023 12:34 PM CERTIFICATION TECHNICIAN [facility] 06/23/2023 11:3 3 AM CERTIFICATION TECHNICIAN Roberta Alex MD LABORATORY Final Result [facility] [address] [place] [address], documented in this encounter Visit Diagnoses Diagnosis Iron deficiency anemia secondary to inadequate dietary iron intake documented in this encounter Additional Health Concerns Infection Onset Date Last Indicated Resolved Time MRSA 06/05/2021 06/05/2021 documented as of this encounter Care Teams Sushi Chef Relationship Specialty Start Date End Date Alejandro Blevins MD PCP - General FAMILY PRACTICE 12/10/19 documented as of this encounter
--- OUTSIDE RECORDS SUMMARY | 2024-07-11 09:52 | XMS_ITS | Encounter Summary ---
Author Organization [facility] Address [facility] [address] [place] [address] Care Team Providers Care Coverage Analyst Name Role Phone Alejandro Blevins MD Primary Care Provider [phone] Encounter Details Date Type Department Care Team (Late st Contact Info) Description 05/26/2023 Orders Only [address] [place] [address] Roberta Alex MD [address] [place] [address] Social History Tobacco Use Types Packs/Day Years Used Date Smoking Tobacco: Every Day Cigarettes Smokeless Tobacco: Never Alcohol Use Standard Drinks/Week Comments Not Currently 0 (1 standard drink = 0.6 oz pur e alcohol) Comments No Sex and Gender Information Value Date Recorded Sex Assigned at Not on file Legal Sex Female 11:30 PM MEDIA SALES CONSULTANT Gender Identity Female 11/10/2021 3:09 PM CDT Sexual Orientation Straight 11/10/2021 3: 09 PM CDT documented as of this encounter Functional Status * RETIRED Are you deaf or do you have serious difficulty hearing Answer Date of Assessment Author Status No 07/30/2020 10:48 PM MEDIA SALES CONSULTANT Acti ve * RETIRED Are you blind or do you have serious difficulty seeing, even when wearing glasses? Answer Date of Assessment Author Status No 07/30/2020 10:46 PM MEDIA SALES CONSULTANT Acti ve * Do you have serious difficulty walking or climbing stairs? Answer Date of Assessment Author Status No 07/30/2020 10:46 PM MEDIA SALES CONSULTANT Bringuet, Nella C, RN Active * Do you have difficulty dressing or bathing? Answer Date of Assessment Author Status No 07/30/2020 10:46 PM MEDIA SALES CONSULTANT Nella Le RN Active * [...] st Contact Info) Description 09/25/2024 11:30 AM MEDIA SALES CONSULTANT Appointment [facility] [address] [place] [address] Roberta Alex MD [address] [place] [address] 09/25/2024 11:40 AM MEDIA SALES CONSULTANT Office [facility] [address] [place] [address] Roberta Alex MD [address] [place] [address] documented as of this encounter Results * (ABNORMAL) CBC W/DIFF AUTOMATED (05/26/2023 11:55 AM CDT) [facility] WBC 11.80(H) 4.00 - 10.80 x10'3/uL 05/26/2023 12:26 PM CDT [facility] RBC 4.75 4.10 - 5.40 x10'6/uL 05/26/2023 12:26 PM CDT [facility] HGB 13.7 12.0 - 16.0 G/DL 05/26/2023 12:26 PM CDT [facility] HCT 42.6 36.0 - 47.0 % 05/26/2023 12:26 PM CDT [facility] MCV 89.7 78.0 - 100.0 FL 05/26/2023 12:26 PM CDT [facility] MCH 28.8 27.0 - 31.0 PG 05/26/2023 12:26 PM CDT [facility] MCHC 32.2(L) 33.0 - 36.0 G/DL 05/26/2023 12:26 PM CDT [facility] RDW 12.0 11.5 - 14.5 % 05/26/2023 12:26 PM CDT [facility] PLT 43(L) 150 - 350 x10'3/uL 05/26/2023 12:26 PM CDT [facility] MPV RESULTS NOT AVAILABLE 7.4 - 10.4 FL 05/26/2023 12:26 PM CDT [facility] CBC COMMENT NORMAL REFERENCE RANGE NOT ESTABLISHED FOR THE PROPORTIONAL LEUKOCYTE DIFFERENTIAL. 05/26/2023 12:26 PM CDT [facility] NEUTROPHILS % 73.5 % 05/26/2023 1:19 PM CDT [facility] LYMPHOCYTES % 15.8 % 05/26/2023 1:19 PM CDT [facility] MONOCYTES % 4.2 % 05/26/2023 1:19 PM CDT [facility] EOSINOPHILS % 5.4 % 05/26/2023 1:19 PM CDT [facility] BASOPHILS % 0.8 % 05/26/2023 1:19 PM CDT [facility] IMMATURE GRANS % 0.3 % 05/26/20 1:19 PM CDT [facility] NRBC 0.0 % 05/26/2023 1:19 PM CDT [facility] ABS. NEUTROPHILS 8.67(H) 1.60 - 8.30 x10'3/uL 05/26/2023 1:19 PM CDT [facility] ABS. LYMPHOCYTES 1.86 0.80 - 4.70 x10'3/uL 05/26/2023 1:19 PM CDT [facility] ABS. MONOCYTES 0.50 0.00 - 1.50 x10'3/uL 05/26/2023 1:19 PM CDT [facility] ABS. EOSINOPHILS 0.64(H) 0.00 - 0.40 x10'3/uL 05/26/2023 1:19 PM CDT [facility] ABS. BASOPHILS 0.09 0.00 - 0.20 x10'3/uL 05/26/2023 1:19 PM CDT [facility] ABS. IMMATURE GRANULOCYTES 0.04(H) 0.00 - 0.03 x10'3/uL 05/26/2023 1:19 PM CDT [facility] ABS. NUCLEATED RBC'S 0.00 0.00 x10'3/uL 05/26/2023 1:19 PM CDT [facility] PLT MORPH. DECREASED 05/26/2023 1:19 PM CDT [facility] RBC MORPHOLOGY NORMAL 05/26/2023 1:19 PM CDT [facility] 05/26/2023 11:5 5 AM CDT Roberta Alex MD LABORATORY Final Result [facility] [address] [email or web address] [address], documented in this encounter Visit Diagnoses Diagnosis Iron deficiency anemia secondary to inadequate dietary iron intake- Primary documented in this encounter Additional Health Concerns Infection Onset Date Last Indicated Resolved Time MRSA 06/05/2021 06/05/2021 documented as of this encounter Care Teams Coverage Analyst Relationship Specialty Start Date End Date Alejandro Blevins MD PCP - General FAMILY PRACTICE 12/10/19 documented as of this encounter
--- OUTSIDE RECORDS SUMMARY | 2024-07-11 09:52 | XMS_ITS | Encounter Summary ---
Author Organization [facility] Address [address] [place] [address]. [place] [address] [place] [address] Care Team Providers Care Hot Dip Plating Supervisor Name Role Phone Alejandro Blevins MD Primary Care Provider [phone] Encounter Details Date Type Department Care Team (Latest Contact Info) Description 06/02/2023 11:37 AM ACQUISITIONS ASSISTANT - 06/02/2023 11:59 PM [facility] Hospital Encounter [address] [place] [address] Roberta Alex MD [address] [place] [address] Discharge Disposition: Home or Self Care (Routine Discharge) Social History Tobacco Use Types Packs/Day Years Used Date Smoking Tobacco: Every Day Cigarettes Smokeless Tobacco: Never Alcohol Use Standard Drinks/Week Comments Not Currently 0 (1 standard drink = 0.6 oz pur e alcohol) Comments No Sex and Gender Information Value Date Recorded Sex Assigned at Not on file Legal Sex Female 11:30 PM ACQUISITIONS ASSISTANT Gender Identity Female 11/10/2021 3:09 PM CDT Sexual Orientation Straight 11/10/2021 3: 09 PM CDT documented as of this encounter Functional Status * RETIRED Are you deaf or do you have serious difficulty hearing Answer Date of Assessment Author Status No 07/30/2020 10:48 PM ACQUISITIONS ASSISTANT Acti ve * RETIRED Are you blind or do you have serious difficulty seeing, even when wearing glasses? Answer Date of Assessment Author Status No 07/30/2020 10:46 PM ACQUISITIONS ASSISTANT Acti ve * Do you have [...] st Contact Info) Description 09/25/2024 11:30 AM ACQUISITIONS ASSISTANT Appointment [facility] [address] [place] [address] Roberta Alex MD [address] [place] [address] 09/25/2024 11:40 AM ACQUISITIONS ASSISTANT Office Visit [facility] [place] [id number] [place] [address] Roberta Alex MD [address] [place] [address] documented as of this encounter Procedures Procedure Name Priority Date/Time Associated Diagnosis Comments CBC W/DIFF AUTOMATED Routine 06/02/2023 11:45 AM ACQUISITIONS ASSISTANT Iron deficiency anemia secondary to inadequate dietary iron intake documented in this encounter Results * (ABNORMAL) CBC W/DIFF AUTOMATED (06/02/2023 11:45 AM ACQUISITIONS ASSISTANT) WBC 11.18(H) 4.00 - 10.80 x10'3/uL 06/02/2023 12:13 PM ACQUISITIONS ASSISTANT [facility] RBC 4.54 4.10 - 5.40 x10'6/uL 06/02/2023 12:13 PM [facility] HGB 13.1 12.0 - 16.0 G/DL 06/02/2023 12:13 PM [facility] HCT 41.1 36.0 - 47.0 % 06/02/2023 12:13 PM [facility] MCV 90.5 78.0 - 100.0 FL 06/02/2023 12:13 PM [facility] MCH 28.9 27.0 - 31.0 PG 06/02/2023 12:13 PM [facility] MCHC 31.9(L) 33.0 - 36.0 G/DL 06/02/2023 12:13 PM [facility] RDW 12.1 11.5 - 14.5 % 06/02/2023 12:13 PM [facility] PLT 51(L) 150 - 350 x10'3/uL 06/02/2023 12:13 PM [facility] MPV RESULTS NOT AVAILABLE 7.4 - 10.4 FL 06/02/2023 12:13 PM [facility] CBC COMMENT NORMAL REFERENCE RANGE NOT ESTABLISHED FOR THE PROPORTIONAL LEUKOCYTE DIFFERENTIAL. 06/02/2023 12:13 PM ACQUISITIONS ASSISTANT [facility] NEUTROPHILS % 68.0 % 06/02/2023 12:46 PM ACQUISITIONS ASSISTANT [facility] LYMPHOCYTES % 18.5 % 06/02/2023 12:46 PM ACQUISITIONS ASSISTANT [facility] MONOCYTES % 5.4 % 06/02/2023 12:46 PM ACQUISITIONS ASSISTANT [facility] EOSINOPHILS % 6.6 % 06/02/2023 12:46 PM ACQUISITIONS ASSISTANT [facility] BASOPHILS % 1.1 % 06/02/2023 12:46 PM ACQUISITIONS ASSISTANT [facility] IMMATURE GRANS % 0.4 % 06/02/20 12:46 PM ACQUISITIONS ASSISTANT [facility] NRBC 0.0 % 06/02/2023 12:46 PM ACQUISITIONS ASSISTANT [facility] ABS. NEUTROPHILS 7.61 1.60 - 8.30 x10'3/uL 06/02/2023 12:46 PM ACQUISITIONS ASSISTANT [facility] ABS. LYMPHOCYTES 2.07 0.80 - 4.70 x10'3/uL 06/02/2023 12:46 PM ACQUISITIONS ASSISTANT [facility] ABS. MONOCYTES 0.60 0.00 - 1.50 x10'3/uL 06/02/2023 12:46 PM [facility] ABS. EOSINOPHILS 0.74(H) 0.00 - 0.40 x10'3/uL 06/02/2023 12:46 PM [facility] ABS. BASOPHILS 0.12 0.00 - 0.20 x10'3/uL 06/02/2023 12:46 PM [facility] ABS. IMMATURE GRANULOCYTES 0.04(H) 0.00 - 0.03 x10'3/uL 06/02/2023 12:46 PM [facility] ABS. NUCLEATED RBC'S 0.00 0.00 x10'3/uL 06/02/2023 12:46 PM ACQUISITIONS ASSISTANT [facility] PLT MORPH. DECREASED 06/02/2023 12:46 PM [facility] RBC MORPHOLOGY NORMAL 06/02/2023 12:46 PM ACQUISITIONS ASSISTANT [facility] 06/02/2023 11:4 5 AM ACQUISITIONS ASSISTANT Roberta Alex MD LABORATORY Final Result [facility] [address] [phone] documented in this encounter Visit Diagnoses Diagnosis Iron deficiency anemia secondary to inadequate dietary iron intake documented in this encounter Additional Health Concerns Infection Onset Date Last Indicated Resolved Time MRSA 06/05/2021 06/05/2021 documented as of this encounter Care Teams Hot Dip Plating Supervisor Relationship Specialty Start Date End Date Alejandro Blevins MD PCP - General FAMILY PRACTICE 12/10/19 documented as of this encounter
--- OUTSIDE RECORDS SUMMARY | 2024-07-11 09:52 | XMS_ITS | Encounter Summary ---
Author Organization [facility] Address [address] [place] [address]. [place] [address] [place] [address] Care Team Providers Care Claims Supervisor Name Role Phone Alejandro Blevins MD Primary Care Provider [phone] Reason for Visit * Reason Comments Infusion Therapy Lab Draw * Treatment/Therapy Plan Authorization (Routine) - Closed Specialty Diagnoses / Procedures Referred By Contac t Referred To Contact Diagnoses Anemia Procedures Roberta Evans MD [address] [place] [address] Phone: tel: fax: [facility] [place] [place] [address] Phone: tel: Referral ID Status Reason Start Date Expiration Date Visits Re quested Visits Authorized [id number] Closed 05/18/2023 05/18/2024 1 1 Encounter Details Date Type Department Care Team (Latest Contact Info) Description 05/26/2023 11:30 AM CDT - 05/26/2023 11:59 PM CDT Hospital Encounter [facility] [place] [address] Roberta Alex MD [address] [place] [address] Infusion Therapy; Lab Draw Discharge [...] on file Legal Sex Female 11:30 PM MATHEMATICAL PHYSICIST Gender Identity Female 11/10/2021 3:09 PM CDT [...] Assessment Author Status No 07/30/2020 10:48 PM MATHEMATICAL PHYSICIST Acti ve * RETIRED Are you blind or do you have serious difficulty seeing, even when wearing glasses? Answer Date of Assessment Author Status No 07/30/2020 10:46 PM MATHEMATICAL PHYSICIST Acti ve * Do you have serious [...] PM Actions taken: Charge Capture section accepted EMATICAL PHYSICIST * Radha Novoa RN - 05/26/2023 11:30 [...] st Contact Info) Description 09/25/2024 11:30 AM MATHEMATICAL PHYSICIST Appointment [facility] [address] [place] [address] Roberta Alex MD [address] [place], [place] [id number] 09/25/2024 11:40 AM MATHEMATICAL PHYSICIST Office [facility] [address] Roberta Alex MD [address] [place], [place] [id number] documented as of this encounter Procedures Procedure Name Priority Date/Time Associated Diagnosis Comments CBC W/DIFF AUTOMATED Routine 05/26/2023 11:55 AM CDT Iron deficiency anemia secondary to inadequate dietary iron intake documented in this encounter Results * (ABNORMAL) CBC W/DIFF AUTOMATED (05/26/2023 11:55 AM CDT) WBC 11.80(H) 4.00 - 10.80 x10'3/uL 05/26/2023 12:26 PM CDT [facility] RBC 4.75 4.10 - 5.40 x10'6/uL 05/26/2023 12:26 PM CDT [facility] HGB 13.7 12.0 - 16.0 G/DL 05/26/2023 12:26 PM CDT [facility] HCT 42.6 36.0 - 47.0 % 05/26/2023 12:26 PM CDT [facility] MCV 89.7 78.0 - 100.0 FL 05/26/2023 12:26 PM CDT [facility] MCH 28.8 27.0 - 31.0 PG 05/26/2023 12:26 PM CDT [facility] MCHC 32.2(L) 33.0 - 36.0 G/DL 05/26/2023 12:26 PM CDT [facility] RDW 12.0 11.5 - 14.5 % 05/26/2023 12:26 PM CDT [facility] PLT 43(L) 150 - 350 x10'3/uL 05/26/2023 12:26 PM CDT [facility] MPV RESULTS NOT AVAILABLE 7.4 - 10.4 FL 05/26/2023 12:26 PM CDT [facility] CBC COMMENT NORMAL REFERENCE RANGE NOT ESTABLISHED FOR THE PROPORTIONAL LEUKOCYTE DIFFERENTIAL. 05/26/2023 12:26 PM CDT [facility] NEUTROPHILS % 73.5 % 05/26/2023 1:19 PM CDT [facility] LYMPHOCYTES % 15.8 % 05/26/2023 1:19 PM CDT [facility] MONOCYTES % 4.2 % 05/26/2023 1:19 PM CDT [facility] EOSINOPHILS % 5.4 % 05/26/2023 1:19 PM CDT [facility] BASOPHILS % 0.8 % 05/26/2023 1:19 PM CDT [facility] IMMATURE GRANS % 0.3 % 05/26/20 1:19 PM CDT [facility] NRBC 0.0 % 05/26/2023 1:19 PM CDT [facility] ABS. NEUTROPHILS 8.67(H) 1.60 - 8.30 x10'3/uL 05/26/2023 1:19 PM CDT [facility] ABS. LYMPHOCYTES 1.86 0.80 - 4.70 x10'3/uL 05/26/2023 1:19 PM CDT [facility] ABS. MONOCYTES 0.50 0.00 - 1.50 x10'3/uL 05/26/2023 1:19 PM CDT [facility] ABS. EOSINOPHILS 0.64(H) 0.00 - 0.40 x10'3/uL 05/26/2023 1:19 PM CDT [facility] ABS. BASOPHILS 0.09 0.00 - 0.20 x10'3/uL 05/26/2023 1:19 PM CDT [facility] ABS. IMMATURE GRANULOCYTES 0.04(H) 0.00 - 0.03 x10'3/uL 05/26/2023 1:19 PM CDT [facility] ABS. NUCLEATED RBC'S 0.00 0.00 x10'3/uL 05/26/2023 1:19 PM CDT [facility] PLT MORPH. DECREASED 05/26/2023 1:19 PM CDT [facility] RBC MORPHOLOGY NORMAL 05/26/2023 1:19 PM CDT [facility] 05/26/2023 11:5 5 AM CDT us Roberta Alex MD LABORATORY Final Result [facility] [address] [place] [address], documented in this encounter Visit Diagnoses Diagnosis [...] documented as of this encounter Care Teams Claims Supervisor Relationship Specialty Start Date End Date Alejandro Blevins MD PCP - General FAMILY PRACTICE 12/10/19 documented as of this encounter
--- OUTSIDE RECORDS SUMMARY | 2024-07-11 09:52 | XMS_ITS | Encounter Summary ---
Author Organization [facility] Address [address] [place] [address]. [place], [place] [address] [place] [address] Care Team Providers Care Busser Name Role Phone Alejandro Blevins MD Primary Care Provider [phone] Encounter Details Date Type Department Care Team [...] on file Legal Sex Female 11:30 PM BOILERMAKER INDUSTRIAL BOILERS Gender Identity Female 11/10/2021 3:09 PM CDT Sexual Orientation Straight 11/10/2021 3: 09 PM CDT documented as of this encounter Functional Status * RETIRED Are you deaf or do you have serious difficulty hearing Answer Date of Assessment Author Status No 07/30/2020 10:48 PM BOILERMAKER INDUSTRIAL BOILERS Acti ve * RETIRED Are you blind or do you have serious difficulty seeing, even when wearing glasses? Answer Date of Assessment Author Status No 07/30/2020 10:46 PM BOILERMAKER INDUSTRIAL BOILERS Acti ve * Do you have serious difficulty walking or climbing stairs? Answer Date of Assessment Author Status No 07/30/2020 10:46 PM BOILERMAKER INDUSTRIAL BOILERS Nella Le RN Active * Do you have difficulty dressing or bathing? Answer Date of Assessment Author Status No 07/30/2020 10:46 PM BOILERMAKER INDUSTRIAL BOILERS Nella Le RN Active * Because of a physical, mental, or emotional condition, do you have difficulty doing errands alone such as visiting a doctor's office or shopping? Answer Date of Assessment Author Status No 07/30/2020 10:46 PM BOILERMAKER INDUSTRIAL BOILERS Nella Le RN Active documented as of this encounter Mental Status * Because of a physical, mental, or emotional condition, do you have serious difficulty concentrating, remembering, or making decisions? Answer Entry Date Author Status No 07/30/2020 10:46 PM BOILERMAKER INDUSTRIAL BOILERS Nella Le RN Active documented in this encounter Plan of Treatment Upcoming Encounters Date Type Department Care Team (Late st Contact Info) Description 09/25/2024 11:30 AM BOILERMAKER INDUSTRIAL BOILERS Appointment [facility] [address] [facility] [place] [address] Roberta Alex MD [address] [place] [address] 09/25/2024 11:40 AM BOILERMAKER INDUSTRIAL BOILERS Office Visit [facility] [address] [facility] [place] [address] Roberta Alex MD [address] [place] [address] documented as of this encounter Visit Diagnoses Not on filedocumented in this encounter Additional Health Concerns Infection Onset Date Last Indicated Resolved Time MRSA 06/05/2021 06/05/2021 documented as of this encounter Care Teams Busser Relationship Specialty Start Date End Date Alejandro Blevins MD PCP - General FAMILY PRACTICE 12/10/19 documented as of this encounter
--- OUTSIDE RECORDS SUMMARY | 2024-07-11 09:52 | XMS_ITS | Encounter Summary ---
Author Organization [facility] Address [address] [place] [address]. [place] [address] [place] [address] Care Team Providers Care Treating Engineer Name Role Phone Alejandro Blevins MD Primary Care Provider [phone] Reason for Visit * Reason Comments Infusion Therapy * Treatment/Therapy Plan Authorization (Routine) - Closed Specialty Diagnoses / Procedures Referred By Contac t Referred To Contact Diagnoses Anemia Procedures Roberta Evans MD [address] [place] [address] Phone: tel: fax: [facility] [place] [address] Phone: tel: Referral ID Status Reason Start Date Expiration Date Visits Re quested Visits Authorized [id number] Closed 05/18/2023 05/18/2024 1 1 Encounter Details Date Type Department Care Team (Latest Contact Info) Description 06/23/2023 11:20 AM GIRL FRIDAY - 06/23/2023 11:59 PM [facility] Encounter [facility] [place] [address] Roberta Alex MD [address] [place] [address] Infusion Therapy Discharge Disposition: Home [...] on file Legal Sex Female 11:30 PM GIRL FRIDAY Gender Identity Female 11/10/2021 3:09 PM CDT Sexual Orientation Straight 11/10/2021 3: 09 PM CDT documented as of this encounter Last Filed Vital Signs Vital Sign Reading Time Taken Comments Blood Pressure 116/85 06/23/2023 12:34 PM GIRL FRIDAY Pulse 85 06/23/2023 12:34 PM GIRL FRIDAY Temperature 36.3 ??C (97.4 ??F) 06/23/2023 1 2:34 PM GIRL FRIDAY Respiratory Rate 18 06/23/2023 12:3 4 PM GIRL FRIDAY Oxygen Saturation 97% 06/23/2023 12: 34 PM GIRL FRIDAY Inhaled Oxygen Concentration - - Weight 81.1 kg (178 lb 12.8 oz) 023 12:34 PM GIRL FRIDAY Height - - Body Mass Index 31.67 10/28/2022 3:44 PM CDT documented in this encounter Functional Status * RETIRED Are you deaf or do you have serious difficulty hearing Answer Date of Assessment Author Status No 07/30/2020 10:48 PM GIRL FRIDAY Acti ve * RETIRED Are you blind or do you have serious difficulty seeing, even when wearing glasses? Answer Date of Assessment Author Status No 07/30/2020 10:46 PM GIRL FRIDAY Acti ve * Do you have serious difficulty walking or climbing stairs? Answer Date of Assessment Author Status No 07/30/2020 10:46 PM GIRL FRIDAY Nella Le RN Active * Do you [...] PM Actions taken: Charge Capture section accepted FRIDAY * Leslie Soriano RN - 06/23/2023 11:30 [...] be free from signs/symptoms of physical injury FRIDAY documented in this encounter Plan of Treatment Upcoming Encounters Date Type Department Care Team (Late st Contact Info) Description 09/25/2024 11:30 AM GIRL FRIDAY Appointment [facility] [address] [facility] [place] [address] Roberta Alex MD [address] [place] [address] 09/25/2024 11:40 AM GIRL FRIDAY Office Visit [facility] [address] [facility] [address] [place] [place] [address] Roberta Alex MD [address] [place] [address] documented as of this encounter Visit Diagnoses [...] blood loss New Bag 06/23/2023 11:55 AM GIRL FRIDAY 200 mg 400 mL/hr documented in this encounter Additional Health Concerns Infection Onset Date Last Indicated Resolved Time MRSA 06/05/2021 06/05/2021 documented as of this encounter Care Teams Treating Engineer Relationship Specialty Start Date End Date Alejandro Blevins MD PCP - General FAMILY PRACTICE 12/10/19 documented as of this encounter
--- OUTSIDE RECORDS SUMMARY | 2024-07-11 09:52 | XMS_ITS | Encounter Summary ---
Author Organization [facility] Address [address] [place] [address]. [place], [place] [address] [place] [address] Care Team Providers Care Residential Living Assistant Name Role Phone Alejandro Blevins MD Primary Care Provider [phone] Encounter Details Date Type Department Care Team [...] file Legal Sex Female 11:30 PM RETAIL BUSINESS MANAGER Gender Identity Female 11/10/2021 3:09 PM CDT Sexual Orientation Straight 11/10/2021 3: 09 PM CDT documented as of this encounter Functional Status * RETIRED Are you deaf or do you have serious difficulty hearing Answer Date of Assessment Author Status No 07/30/2020 10:48 PM RETAIL BUSINESS MANAGER Acti ve * RETIRED Are you blind or do you have serious difficulty seeing, even when wearing glasses? Answer Date of Assessment Author Status No 07/30/2020 10:46 PM RETAIL BUSINESS MANAGER Acti ve * Do you have serious difficulty walking or climbing stairs? Answer Date of Assessment Author Status No 07/30/2020 10:46 PM RETAIL BUSINESS MANAGER Nella Le RN Active * Do you have difficulty dressing or bathing? Answer Date of Assessment Author Status No 07/30/2020 10:46 PM RETAIL BUSINESS MANAGER Nella Le RN Active * Because of a physical, mental, or emotional condition, do you have difficulty doing errands alone such as visiting a doctor's office or shopping? Answer Date of Assessment Author Status No 07/30/2020 10:46 PM RETAIL BUSINESS MANAGER Nella Le RN Active documented as of this encounter Mental Status * Because of a physical, mental, or emotional condition, do you have serious difficulty concentrating, remembering, or making decisions? Answer Entry Date Author Status No 07/30/2020 10:46 PM RETAIL BUSINESS MANAGER Nella Le RN Active documented in this encounter Plan of Treatment Upcoming Encounters Date Type Department Care Team (Late st Contact Info) Description 09/25/2024 11:30 AM RETAIL BUSINESS MANAGER Appointment [facility] [address] [facility] [address] Roberta Alex MD [address] [place] [address] 09/25/2024 11:40 AM RETAIL BUSINESS MANAGER Office Visit [facility] [address] [facility] [address] Roberta Alex MD [address] [place] [address] documented as of this encounter Visit Diagnoses Not on filedocumented in this encounter Additional Health Concerns Infection Onset Date Last Indicated Resolved Time MRSA 06/05/2021 06/05/2021 documented as of this encounter Care Teams Residential Living Assistant Relationship Specialty Start Date End Date Alejandro Blevins MD PCP - General FAMILY PRACTICE 12/10/19 documented as of this encounter
--- OUTSIDE RECORDS SUMMARY | 2024-07-11 09:52 | XMS_ITS | Encounter Summary ---
Author Organization [facility] Address [facility] [place] [address] [place] [address] Care Team Providers Care Leather Production Artisan Name Role Phone Alejandro Blevins MD Primary Care Provider [phone] Encounter Details Date Type Department Care Team (Late st Contact Info) Description 05/26/2023 Orders Only [address] [place] [address] Roberta Alex MD [address] [place] [address] Social History Tobacco Use Types Packs/Day Years Used Date Smoking Tobacco: Every Day Cigarettes Smokeless Tobacco: Never Alcohol Use Standard Drinks/Week Comments Not Currently 0 (1 standard drink = 0.6 oz pur e alcohol) Comments No Sex and Gender Information Value Date Recorded Sex Assigned at Not on file Legal Sex Female 11:30 PM RN DIGESTIVE Gender Identity Female 11/10/2021 3:09 PM CDT Sexual Orientation Straight 11/10/2021 3: 09 PM CDT documented as of this encounter Functional Status * RETIRED Are you deaf or do you have serious difficulty hearing Answer Date of Assessment Author Status No 07/30/2020 10:48 PM RN DIGESTIVE Acti ve * RETIRED Are you blind or do you have serious difficulty seeing, even when wearing glasses? Answer Date of Assessment Author Status No 07/30/2020 10:46 PM RN DIGESTIVE Acti ve * Do you have serious difficulty walking or climbing stairs? Answer Date of Assessment Author Status No 07/30/2020 10:46 PM RN DIGESTIVE Bringuet, Nella C, RN Active * Do you have difficulty dressing or bathing? Answer Date of Assessment Author Status No 07/30/2020 10:46 PM RN DIGESTIVE Nella Le RN Active * Because of [...] st Contact Info) Description 09/25/2024 11:30 AM RN DIGESTIVE Appointment [facility] [address] [place] [address] Roberta Alex MD [address] [place] [address] 09/25/2024 11:40 AM RN DIGESTIVE Office Visit [facility] [address] [place] [address] Roberta Alex MD [address] [place] [address] documented as of this encounter Results * (ABNORMAL) CBC W/DIFF AUTOMATED (06/23/2023 11:33 AM RN DIGESTIVE) WBC 16.97(H) 4.00 - 10.80 x10'3/uL 06/23/2023 11:45 AM RN DIGESTIVE [facility] RBC 4.74 4.10 - 5.40 x10'6/uL 06/23/2023 11:45 AM RN DIGESTIVE [facility] HGB 13.8 12.0 - 16.0 G/DL 06/23/2023 11:45 AM RN DIGESTIVE [facility] HCT 42.5 36.0 - 47.0 % 06/23/2023 11:45 AM [facility] MCV 89.7 78.0 - 100.0 FL 06/23/2023 11:45 AM [facility] MCH 29.1 27.0 - 31.0 PG 06/23/2023 11:45 AM [facility] MCHC 32.5(L) 33.0 - 36.0 G/DL 06/23/2023 11:45 AM [facility] RDW 12.6 11.5 - 14.5 % 06/23/2023 11:45 AM [facility] PLT 48(L) 150 - 350 x10'3/uL 06/23/2023 11:45 AM [facility] MPV RESULTS NOT AVAILABLE 7.4 - 10.4 FL 06/23/2023 11:45 AM [facility] CBC COMMENT NORMAL REFERENCE RANGE NOT ESTABLISHED FOR THE PROPORTIONAL LEUKOCYTE DIFFERENTIAL. 06/23/2023 11:45 AM [facility] NEUTROPHILS % 73.5 % 06/23/2023 12:34 PM [facility] LYMPHOCYTES % 14.7 % 06/23/2023 12:34 PM [facility] MONOCYTES % 5.0 % 06/23/2023 12:34 PM [facility] EOSINOPHILS % 5.8 % 06/23/2023 12:34 PM [facility] BASOPHILS % 0.6 % 06/23/2023 12:34 PM [facility] IMMATURE GRANS % 0.4 % 06/23/20 23 12:34 PM [facility] NRBC 0.0 % 06/23/2023 12:34 PM [facility] ABS. NEUTROPHILS 12.48(H) 1.60 - 8.30 x10'3/uL 06/23/2023 12:34 PM [facility] ABS. LYMPHOCYTES 2.49 0.80 - 4.70 x10'3/uL 06/23/2023 12:34 PM [facility] ABS. MONOCYTES 0.85 0.00 - 1.50 x10'3/uL 06/23/2023 12:34 PM RN DIGESTIVE [facility] ABS. EOSINOPHILS 0.98(H) 0.00 - 0.40 x10'3/uL 06/23/2023 12:34 PM RN DIGESTIVE [facility] ABS. BASOPHILS 0.10 0.00 - 0.20 x10'3/uL 06/23/2023 12:34 PM RN DIGESTIVE [facility] ABS. IMMATURE GRANULOCYTES 0.07(H) 0.00 - 0.03 x10'3/uL 06/23/2023 12:34 PM RN DIGESTIVE [facility] ABS. NUCLEATED RBC'S 0.00 0.00 x10'3/uL 06/23/2023 12:34 PM [facility] PLT MORPH. DECREASED 06/23/2023 12:34 PM [facility] RBC MORPHOLOGY NORMAL 06/23/2023 12:34 PM [facility] 06/23/2023 11:3 3 AM RN DIGESTIVE Roberta Alex MD LABORATORY Final Result [facility] [address] [place] [address], * (ABNORMAL) CBC W/DIFF AUTOMATED (06/09/2023 11:39 AM RN DIGESTIVE) WBC 9.99 4.00 - 10.80 x10'3/uL 06/09/2023 12:03 PM [facility] RBC 4.61 4.10 - 5.40 x10'6/uL 06/09/2023 12:03 PM [facility] HGB 13.4 12.0 - 16.0 G/DL 06/09/2023 12:03 PM [facility] HCT 41.6 36.0 - 47.0 % 06/09/2023 12:03 PM [facility] MCV 90.2 78.0 - 100.0 FL 06/09/2023 12:03 PM [facility] MCH 29.1 27.0 - 31.0 PG 06/09/2023 12:03 PM [facility] MCHC 32.2(L) 33.0 - 36.0 G/DL 06/09/2023 12:03 PM RN DIGESTIVE [facility] RDW 12.3 11.5 - 14.5 % 06/09/2023 12:03 PM [facility] PLT 39(L) 150 - 350 x10'3/uL 06/09/2023 12:03 PM [facility] MPV RESULTS NOT AVAILABLE 7.4 - 10.4 FL 06/09/2023 12:03 PM [facility] CBC COMMENT NORMAL REFERENCE RANGE NOT ESTABLISHED FOR THE PROPORTIONAL LEUKOCYTE DIFFERENTIAL. 06/09/2023 12:03 PM RN DIGESTIVE [facility] NEUTROPHILS % 67.1 % 06/09/2023 2:37 PM RN DIGESTIVE [facility] LYMPHOCYTES % 18.4 % 06/09/2023 2:37 PM RN DIGESTIVE [facility] MONOCYTES % 5.9 % 06/09/2023 2:37 PM RN DIGESTIVE [facility] EOSINOPHILS % 7.3 % 06/09/2023 2:37 PM RN DIGESTIVE [facility] BASOPHILS % 0.9 % 06/09/2023 2:37 PM RN DIGESTIVE [facility] IMMATURE GRANS % 0.4 % 06/09/20 2:37 PM RN DIGESTIVE [facility] NRBC 0.0 % 06/09/2023 2:37 PM RN DIGESTIVE [facility] ABS. NEUTROPHILS 6.70 1.60 - 8.30 x10'3/uL 06/09/2023 2:37 PM RN DIGESTIVE [facility] ABS. LYMPHOCYTES 1.84 0.80 - 4.70 x10'3/uL 06/09/2023 2:37 PM RN DIGESTIVE [facility] ABS. MONOCYTES 0.59 0.00 - 1.50 x10'3/uL 06/09/2023 2:37 PM [facility] ABS. EOSINOPHILS 0.73(H) 0.00 - 0.40 x10'3/uL 06/09/2023 2:37 PM RN DIGESTIVE [facility] ABS. BASOPHILS 0.09 0.00 - 0.20 x10'3/uL 06/09/2023 2:37 PM RN DIGESTIVE [facility] ABS. IMMATURE GRANULOCYTES 0.04(H) 0.00 - 0.03 x10'3/uL 06/09/2023 2:37 PM RN DIGESTIVE [facility] ABS. NUCLEATED RBC'S 0.00 0.00 x10'3/uL 06/09/2023 2:37 PM RN DIGESTIVE [facility] PLT MORPH. DECREASED 06/09/2023 2:37 PM RN DIGESTIVE [facility] RBC MORPHOLOGY 2+ 06/09/2023 2:37 PM RN DIGESTIVE [facility] Comment:ANISOCYTOSIS 06/09/2023 11:3 9 AM RN DIGESTIVE Roberta Alex MD LABORATORY Final Result [facility] [address] [place] [address], * (ABNORMAL) CBC W/DIFF AUTOMATED (06/02/2023 11:45 AM RN DIGESTIVE) WBC 11.18(H) 4.00 - 10.80 x10'3/uL 06/02/2023 12:13 PM RN DIGESTIVE [facility] RBC 4.54 4.10 - 5.40 x10'6/uL 06/02/2023 12:13 PM [facility] HGB 13.1 12.0 - 16.0 G/DL 06/02/2023 12:13 PM RN DIGESTIVE [facility] HCT 41.1 36.0 - 47.0 % 06/02/2023 12:13 PM [facility] MCV 90.5 78.0 - 100.0 FL 06/02/2023 12:13 PM [facility] MCH 28.9 27.0 - 31.0 PG 06/02/2023 12:13 PM [facility] MCHC 31.9(L) 33.0 - 36.0 G/DL 06/02/2023 12:13 PM [facility] RDW 12.1 11.5 - 14.5 % 06/02/2023 12:13 PM [facility] PLT 51(L) 150 - 350 x10'3/uL 06/02/2023 12:13 PM [facility] MPV RESULTS NOT AVAILABLE 7.4 - 10.4 FL 06/02/2023 12:13 PM [facility] CBC COMMENT NORMAL REFERENCE RANGE NOT ESTABLISHED FOR THE PROPORTIONAL LEUKOCYTE DIFFERENTIAL. 06/02/2023 12:13 PM [facility] NEUTROPHILS % 68.0 % 06/02/2023 12:46 PM [facility] LYMPHOCYTES % 18.5 % 06/02/2023 12:46 PM [facility] MONOCYTES % 5.4 % 06/02/2023 12:46 PM [facility] EOSINOPHILS % 6.6 % 06/02/2023 12:46 PM [facility] BASOPHILS % 1.1 % 06/02/2023 12:46 PM [facility] IMMATURE GRANS % 0.4 % 06/02/20 12:46 PM [facility] NRBC 0.0 % 06/02/2023 12:46 PM [facility] ABS. NEUTROPHILS 7.61 1.60 - 8.30 x10'3/uL 06/02/2023 12:46 PM [facility] ABS. LYMPHOCYTES 2.07 0.80 - 4.70 x10'3/uL 06/02/2023 12:46 PM [facility] ABS. MONOCYTES 0.60 0.00 - 1.50 x10'3/uL 06/02/2023 12:46 PM [facility] ABS. EOSINOPHILS 0.74(H) 0.00 - 0.40 x10'3/uL 06/02/2023 12:46 PM [facility] ABS. BASOPHILS 0.12 0.00 - 0.20 x10'3/uL 06/02/2023 12:46 PM [facility] ABS. IMMATURE GRANULOCYTES 0.04(H) 0.00 - 0.03 x10'3/uL 06/02/2023 12:46 PM RN DIGESTIVE [facility] ABS. NUCLEATED RBC'S 0.00 0.00 x10'3/uL 06/02/2023 12:46 PM RN DIGESTIVE [facility] PLT MORPH. DECREASED 06/02/2023 12:46 PM RN DIGESTIVE [facility] RBC MORPHOLOGY NORMAL 06/02/2023 12:46 PM RN DIGESTIVE [facility] 06/02/2023 11:4 5 AM RN DIGESTIVE Roberta Alex MD LABORATORY Final Result [facility] [address] [place] [address], documented in this encounter Visit Diagnoses Diagnosis Iron deficiency anemia secondary to inadequate dietary iron intake- Primary documented in this encounter Additional Health Concerns Infection Onset Date Last Indicated Resolved Time MRSA 06/05/2021 06/05/2021 documented as of this encounter Care Teams Leather Production Artisan Relationship Specialty Start Date End Date Alejandro Blevins MD PCP - General FAMILY PRACTICE 12/10/19 documented as of this encounter
--- OUTSIDE RECORDS SUMMARY | 2024-07-11 09:52 | XMS_ITS | Encounter Summary ---
Author Organization [facility] Address [address] [place] [address]. [place], [place] [address] [address] Care Team Providers Care Email Marketing Executive Name Role Phone Alejandro Blevins MD Primary Care Provider [phone] Encounter Details Date Type Department Care Team [...] on file Legal Sex Female 11:30 PM INKJET OPERATOR Gender Identity Female 11/10/2021 3:09 PM CDT Sexual Orientation Straight 11/10/2021 3: 09 PM CDT documented as of this encounter Functional Status * RETIRED Are you deaf or do you have serious difficulty hearing Answer Date of Assessment Author Status No 07/30/2020 10:48 PM INKJET OPERATOR Acti ve * RETIRED Are you blind or do you have serious difficulty seeing, even when wearing glasses? Answer Date of Assessment Author Status No 07/30/2020 10:46 PM INKJET OPERATOR Acti ve * Do you have serious difficulty walking or climbing stairs? Answer Date of Assessment Author Status No 07/30/2020 10:46 PM INKJET OPERATOR Nella Le RN Active * Do you have difficulty dressing or bathing? Answer Date of Assessment Author Status No 07/30/2020 10:46 PM INKJET OPERATOR Nella Le RN Active * Because of a physical, mental, or emotional condition, do you have difficulty doing errands alone such as visiting a doctor's office or shopping? Answer Date of Assessment Author Status No 07/30/2020 10:46 PM INKJET OPERATOR Nella Le RN Active documented as of this encounter Mental Status * Because of a physical, mental, or emotional condition, do you have serious difficulty concentrating, remembering, or making decisions? Answer Entry Date Author Status No 07/30/2020 10:46 PM INKJET OPERATOR Nella Le RN Active documented in this encounter Plan of Treatment Upcoming Encounters Date Type Department Care Team (Late st Contact Info) Description 09/25/2024 11:30 AM INKJET OPERATOR Appointment [facility] [address] [facility] [place] [address] Roberta Alex MD [address] [place] [address] 09/25/2024 11:40 AM INKJET OPERATOR Office Visit [facility] [address] [facility] [place] [address] Roberta Alex MD [address] [place] [address] documented as of this encounter Visit Diagnoses Not on filedocumented in this encounter Additional Health Concerns Infection Onset Date Last Indicated Resolved Time MRSA 06/05/2021 06/05/2021 documented as of this encounter Care Teams Email Marketing Executive Relationship Specialty Start Date End Date Alejandro Blevins MD PCP - General FAMILY PRACTICE 12/10/19 documented as of this encounter
--- OUTSIDE RECORDS SUMMARY | 2024-07-11 09:52 | XMS_ITS | Encounter Summary ---
Author Organization [facility] Address [address] [place] [address]. [place] [address] [place] [address] Care Team Providers Care Edi Analyst Name Role Phone Alejandro Blevins MD Primary Care Provider [phone] Reason for Visit * Reason Comments Infusion Therapy * Treatment/Therapy Plan Authorization (Routine) - Closed Specialty Diagnoses / Procedures Referred By Contac t Referred To Contact Diagnoses Anemia Procedures Roberta Evans MD [address] [place] [address] Phone: tel: fax: [facility] [place] [place] [address] Phone: tel: Referral ID Status Reason Start Date Expiration Date Visits Re quested Visits Authorized [id number] Closed 05/18/2023 05/18/2024 1 1 Encounter Details Date Type Department Care Team (Latest Contact Info) Description 06/09/2023 11:28 AM [facility] Hospital Encounter [facility] [place] [place] [address] Roberta Alex MD [address] [place], [place] [address] Infusion Therapy Discharge Disposition: Home or Self [...] on file Legal Sex Female 11:30 PM BAND RIPSAW OPERATOR Gender Identity Female 11/10/2021 3:09 PM CDT Sexual Orientation Straight 11/10/2021 3: 09 PM CDT documented as of this encounter Last Filed Vital Signs Vital Sign Reading Time Taken Comments Blood Pressure 104/80 06/09/2023 12:02 PM BAND RIPSAW OPERATOR Pulse 71 06/09/2023 12:02 PM BAND RIPSAW OPERATOR Temperature 35.9 ??C (96.6 ??F) 06/09/2023 12:[address] Respiratory Rate 16 06/09/2023 12:02 PM BAND RIPSAW OPERATOR Oxygen Saturation 96% 06/09/2023 12:02 PM BAND RIPSAW OPERATOR Inhaled Oxygen Concentration - - Weight 79.4 kg (175 lb) 06/09/2023 12:02 PM BAND RIPSAW OPERATOR Height - - Body Mass Index 31 10/28/2022 3:44 PM CDT documented in this encounter Functional Status * RETIRED Are you deaf or do you have serious difficulty hearing Answer Date of Assessment Author Status No 07/30/2020 10:48 PM BAND RIPSAW OPERATOR Acti ve * RETIRED Are you blind or do you have serious difficulty seeing, even when wearing glasses? Answer Date of Assessment Author Status No 07/30/2020 10:46 PM BAND RIPSAW OPERATOR Acti ve * Do you have serious difficulty walking or climbing stairs? Answer Date of Assessment Author Status No 07/30/2020 10:46 PM BAND RIPSAW OPERATOR Nella Le RN Active * Do [...] be free from signs/symptoms of physical injury RIPSAW OPERATOR * Cecilia Healy - 06/09/2023 11:28 AM CSTEncounter addended by: Cecilia Healy on: 06/13/2023 1:26 PM Actions taken: Charge Capture section accepted RIPSAW OPERATOR documented in this encounter Plan of Treatment Upcoming Encounters Date Type Department Care Team (Late st Contact Info) Description 09/25/2024 11:30 AM BAND RIPSAW OPERATOR Appointment [facility] [address] [place] [address] Roberta Alex MD [address] [place] [address] 09/25/2024 11:40 AM BAND RIPSAW OPERATOR Office Visit [facility] [address] [place] [address] Roberta Alex MD [address] [place] [address] documented as of this encounter Visit Diagnoses [...] blood loss New Bag 06/09/2023 12:02 PM BAND RIPSAW OPERATOR 200 mg 400 mL/hr documented in this encounter Additional Health Concerns Infection Onset Date Last Indicated Resolved Time MRSA 06/05/2021 06/05/2021 documented as of this encounter Care Teams Edi Analyst Relationship Specialty Start Date End Date Alejandro Blevins MD PCP - General FAMILY PRACTICE 12/10/19 documented as of this encounter
--- OUTSIDE RECORDS SUMMARY | 2024-07-11 09:52 | XMS_ITS | Encounter Summary ---
Author Organization [facility] Address [address] [place] [address]. [place] [address] [place] [address] Care Team Providers Care Controller Mechanic Name Role Phone Alejandro Blevins MD Primary Care Provider [phone] Encounter Details Date Type Department Care Team (Latest Contact Info) Description 06/09/2023 11:29 AM KISS MIXER - 06/09/2023 11:59 PM [facility] Hospital Encounter [address] [place] [address] Roberta Alex MD [address] [place] [address] Discharge Disposition: Home or Self Care (Routine Discharge) Social History Tobacco Use Types Packs/Day Years Used Date Smoking Tobacco: Every Day Cigarettes Smokeless Tobacco: Never Alcohol Use Standard Drinks/Week Comments Not Currently 0 (1 standard drink = 0.6 oz pur e alcohol) Comments No Sex and Gender Information Value Date Recorded Sex Assigned at Not on file Legal Sex Female 11:30 PM KISS MIXER Gender Identity Female 11/10/2021 3:09 PM CDT Sexual Orientation Straight 11/10/2021 3: 09 PM CDT documented as of this encounter Functional Status * RETIRED Are you deaf or do you have serious difficulty hearing Answer Date of Assessment Author Status No 07/30/2020 10:48 PM KISS MIXER Acti ve * RETIRED Are you blind or do you have serious difficulty seeing, even when wearing glasses? Answer Date of Assessment Author Status No 07/30/2020 10:46 PM KISS MIXER Acti ve * Do you have serious [...] st Contact Info) Description 09/25/2024 11:30 AM KISS MIXER Appointment [place] [address] [facility] [place] [address] Roberta Alex MD [address] [place] [address] 09/25/2024 11:40 AM KISS MIXER Office Visit [facility] [address] [place] [place] [address] Roberta Alex MD [address] [place] [address] documented as of this encounter Procedures Procedure Name Priority Date/Time Associated Diagnosis Comments CBC W/DIFF AUTOMATED Routine 06/09/2023 11:39 AM KISS MIXER Iron deficiency anemia secondary to inadequate dietary iron intake documented in this encounter Results * (ABNORMAL) CBC W/DIFF AUTOMATED (06/09/2023 11:39 AM KISS MIXER) WBC 9.99 4.00 - 10.80 x10'3/uL 06/09/2023 12:03 PM KISS MIXER [facility] RBC 4.61 4.10 - 5.40 x10'6/uL 06/09/2023 12:03 PM [facility] HGB 13.4 12.0 - 16.0 G/DL 06/09/2023 12:03 PM [facility] HCT 41.6 36.0 - 47.0 % 06/09/2023 12:03 PM [facility] MCV 90.2 78.0 - 100.0 FL 06/09/2023 12:03 PM [facility] MCH 29.1 27.0 - 31.0 PG 06/09/2023 12:03 PM [facility] MCHC 32.2(L) 33.0 - 36.0 G/DL 06/09/2023 12:03 PM [facility] RDW 12.3 11.5 - 14.5 % 06/09/2023 12:03 PM [facility] PLT 39(L) 150 - 350 x10'3/uL 06/09/2023 12:03 PM [facility] MPV RESULTS NOT AVAILABLE 7.4 - 10.4 FL 06/09/2023 12:03 PM KISS MIXER [facility] CBC COMMENT NORMAL REFERENCE RANGE NOT ESTABLISHED FOR THE PROPORTIONAL LEUKOCYTE DIFFERENTIAL. 06/09/2023 12:03 PM KISS MIXER [facility] NEUTROPHILS % 67.1 % 06/09/2023 2:37 PM KISS MIXER [facility] LYMPHOCYTES % 18.4 % 06/09/2023 2:37 PM KISS MIXER [facility] MONOCYTES % 5.9 % 06/09/2023 2:37 PM KISS MIXER [facility] EOSINOPHILS % 7.3 % 06/09/2023 2:37 PM KISS MIXER [facility] BASOPHILS % 0.9 % 06/09/2023 2:37 PM KISS MIXER [facility] IMMATURE GRANS % 0.4 % 06/09/20 2:37 PM KISS MIXER [facility] NRBC 0.0 % 06/09/2023 2:37 PM KISS MIXER [facility] ABS. NEUTROPHILS 6.70 1.60 - 8.30 x10'3/uL 06/09/2023 2:37 PM KISS MIXER [facility] ABS. LYMPHOCYTES 1.84 0.80 - 4.70 x10'3/uL 06/09/2023 2:37 PM KISS MIXER [facility] ABS. MONOCYTES 0.59 0.00 - 1.50 x10'3/uL 06/09/2023 2:37 PM KISS MIXER [facility] ABS. EOSINOPHILS 0.73(H) 0.00 - 0.40 x10'3/uL 06/09/2023 2:37 PM KISS MIXER [facility] ABS. BASOPHILS 0.09 0.00 - 0.20 x10'3/uL 06/09/2023 2:37 PM KISS MIXER [facility] ABS. IMMATURE GRANULOCYTES 0.04(H) 0.00 - 0.03 x10'3/uL 06/09/2023 2:37 PM KISS MIXER [facility] ABS. NUCLEATED RBC'S 0.00 0.00 x10'3/uL 06/09/2023 2:37 PM KISS MIXER [facility] PLT MORPH. DECREASED 06/09/2023 2:37 PM KISS MIXER [facility] RBC MORPHOLOGY 2+ 06/09/2023 2:37 PM KISS MIXER [facility] Comment:ANISOCYTOSIS 06/09/2023 11:3 9 AM KISS MIXER Roberta Alex MD LABORATORY Final Result [facility] [address] [place] [address], documented in this encounter Visit Diagnoses Diagnosis Iron deficiency anemia secondary to inadequate dietary iron intake documented in this encounter Additional Health Concerns Infection Onset Date Last Indicated Resolved Time MRSA 06/05/2021 06/05/2021 documented as of this encounter Care Teams Controller Mechanic Relationship Specialty Start Date End Date Alejandro Blevins MD PCP - General FAMILY PRACTICE 12/10/19 documented as of this encounter
--- OUTSIDE RECORDS SUMMARY | 2024-07-11 09:52 | XMS_ITS | Encounter Summary ---
Author Organization [facility] Address [address] [place] [address]. [place] [address] [place] [address] Care Team Providers Care Stylist Apprentice Name Role Phone Alejandro Blevins MD Primary Care Provider Encounter Details Date Type Department Care Team (Latest Contact Info) Description 06/28/2023 9:30 AM BILLING ASSISTANT - 06/28/2023 11:59 PM BILLING ASSISTANT Hospital Encounter [address] [place] [address] Roberta Alex MD [address] [place] [address] Discharge Disposition: Home or Self Care (Routine Discharge) Social History Tobacco Use Types Packs/Day Years Used Date Smoking Tobacco: Every Day Cigarettes Smokeless Tobacco: Never Alcohol Use Standard Drinks/Week Comments Not Currently 0 (1 standard drink = 0.6 oz pur e alcohol) Comments No Sex and Gender Information Value Date Recorded Sex Assigned at Not on file Legal Sex Female 11:30 PM BILLING ASSISTANT Gender Identity Female 11/10/2021 3:09 PM CDT Sexual Orientation Straight 11/10/2021 3: 09 PM CDT documented as of this encounter Functional Status * RETIRED Are you deaf or do you have serious difficulty hearing Answer Date of Assessment Author Status No 07/30/2020 10:48 PM BILLING ASSISTANT Acti ve * RETIRED Are you blind or do you have serious difficulty seeing, even when wearing glasses? Answer Date of Assessment Author Status No 07/30/2020 10:46 PM BILLING ASSISTANT Acti ve * Do you have [...] st Contact Info) Description 09/25/2024 11:30 AM BILLING ASSISTANT Appointment [facility] [place] [address] Roberta Alex MD [address] [place] [address] 09/25/2024 11:40 AM BILLING ASSISTANT Office Visit [facility] [place] [address] Roberta Alex MD [address] [place] [address] documented as of this encounter Procedures Procedure Name Priority Date/Time Associated Diagnosis Comments CBC W/DIFF AUTOMATED Routine 06/28/2023 10:08 AM BILLING ASSISTANT Acute ITP (CMS/HCC HHS/HCC) documented in this encounter Results * (ABNORMAL) CBC W/DIFF AUTOMATED (06/28/2023 10:08 AM BILLING ASSISTANT) WBC 10.42 4.00 - 10.80 x10'3/uL 06/28/2023 10:35 AM BILLING ASSISTANT [facility] RBC 4.53 4.10 - 5.40 x10'6/uL 06/28/2023 10:35 AM [facility] HGB 13.2 12.0 - 16.0 G/DL 06/28/2023 10:35 AM [facility] HCT 41.1 36.0 - 47.0 % 06/28/2023 10:35 AM BILLING ASSISTANT [facility] MCV 90.7 78.0 - 100.0 FL 06/28/2023 10:35 AM BILLING ASSISTANT [facility] MCH 29.1 27.0 - 31.0 PG 06/28/2023 10:35 AM [facility] MCHC 32.1(L) 33.0 - 36.0 G/DL 06/28/2023 10:35 AM [facility] RDW 12.7 11.5 - 14.5 % 06/28/2023 10:35 AM [facility] PLT 39(L) 150 - 350 x10'3/uL 06/28/2023 10:35 AM [facility] MPV RESULTS NOT AVAILABLE 7.4 - 10.4 FL 06/28/2023 10:35 AM [facility] CBC COMMENT NORMAL REFERENCE RANGE NOT ESTABLISHED FOR THE PROPORTIONAL LEUKOCYTE DIFFERENTIAL. 06/28/2023 10:35 AM [facility] NEUTROPHILS % 66.4 % 06/28/2023 10:58 AM [facility] LYMPHOCYTES % 16.6 % 06/28/2023 10:58 AM [facility] MONOCYTES % 5.7 % 06/28/2023 10:58 AM [facility] EOSINOPHILS % 9.7 % 06/28/2023 10:58 AM [facility] BASOPHILS % 1.2 % 06/28/2023 10:58 AM [facility] IMMATURE GRANS % 0.4 % 06/28/20 10:58 AM [facility] NRBC 0.0 % 06/28/2023 10:58 AM [facility] ABS. NEUTROPHILS 6.92 1.60 - 8.30 x10'3/uL 06/28/2023 10:58 AM [facility] ABS. LYMPHOCYTES 1.73 0.80 - 4.70 x10'3/uL 06/28/2023 10:58 AM [facility] ABS. MONOCYTES 0.59 0.00 - 1.50 x10'3/uL 06/28/2023 10:58 AM [facility] ABS. EOSINOPHILS 1.01(H) 0.00 - 0.40 x10'3/uL 06/28/2023 10:58 AM [facility] ABS. BASOPHILS 0.13 0.00 - 0.20 x10'3/uL 06/28/2023 10:58 AM [facility] ABS. IMMATURE GRANULOCYTES 0.04(H) 0.00 - 0.03 x10'3/uL 06/28/2023 10:58 AM BILLING ASSISTANT [facility] ABS. NUCLEATED RBC'S 0.00 0.00 x10'3/uL 06/28/2023 10:58 AM BILLING ASSISTANT [facility] PLT MORPH. DECREASED 06/28/2023 10:58 AM BILLING ASSISTANT [facility] Comment:1+ LARGE PLATELETS S EEN RBC MORPHOLOGY NORMAL 06/28/2023 10:58 AM BILLING ASSISTANT [facility] 06/28/2023 10:0 8 AM BILLING ASSISTANT us Roberta Alex MD LABORATORY Final Result [facility] [address] [place] [address], documented in this encounter Visit Diagnoses Diagnosis Acute ITP (CMS/HCC HHS/HCC) Immune thrombocytopenic purpura documented in this encounter Additional Health Concerns Infection Onset Date Last Indicated Resolved Time MRSA 06/05/2021 06/05/2021 documented as of this encounter Care Teams Stylist Apprentice Relationship Specialty Start Date End Date Alejandro Blevins MD PCP - General FAMILY PRACTICE 12/10/19 documented as of this encounter
--- OUTSIDE RECORDS SUMMARY | 2024-07-11 09:52 | XMS_ITS | Encounter Summary ---
Author Organization [facility] Address [address] [place] [address]. [place], [place] [address] [place] [address] Care Team Providers Care Line Technician Name Role Phone Alejandro Blevins MD Primary Care Provider [phone] Encounter Details Date Type Department Care Team [...] on file Legal Sex Female 11:30 PM MUD ANALYSIS SUPERVISOR Gender Identity Female 11/10/2021 3:09 PM CDT Sexual Orientation Straight 11/10/2021 3: 09 PM CDT documented as of this encounter Functional Status * RETIRED Are you deaf or do you have serious difficulty hearing Answer Date of Assessment Author Status No 07/30/2020 10:48 PM MUD ANALYSIS SUPERVISOR Acti ve * RETIRED Are you blind or do you have serious difficulty seeing, even when wearing glasses? Answer Date of Assessment Author Status No 07/30/2020 10:46 PM MUD ANALYSIS SUPERVISOR Acti ve * Do you have serious difficulty walking or climbing stairs? Answer Date of Assessment Author Status No 07/30/2020 10:46 PM MUD ANALYSIS SUPERVISOR Nella Le RN Active * Do you have difficulty dressing or bathing? Answer Date of Assessment Author Status No 07/30/2020 10:46 PM MUD ANALYSIS SUPERVISOR Nella Le RN Active * Because of a physical, mental, or emotional condition, do you have difficulty doing errands alone such as visiting a doctor's office or shopping? Answer Date of Assessment Author Status No 07/30/2020 10:46 PM MUD ANALYSIS SUPERVISOR Nella Le RN Active documented as of this encounter Mental Status * Because of a physical, mental, or emotional condition, do you have serious difficulty concentrating, remembering, or making decisions? Answer Entry Date Author Status No 07/30/2020 10:46 PM MUD ANALYSIS SUPERVISOR Nella Le RN Active documented in this encounter Plan of Treatment Upcoming Encounters Date Type Department Care Team (Late st Contact Info) Description 09/25/2024 11:30 AM MUD ANALYSIS SUPERVISOR Appointment [facility] [address] [place] [address] Roberta Alex MD [address] [place] [address] 09/25/2024 11:40 AM MUD ANALYSIS SUPERVISOR Office Visit [facility] [address] [place] [address] Roberta Alex MD [address] [place] [address] documented as of this encounter Visit Diagnoses Not on filedocumented in this encounter Additional Health Concerns Infection Onset Date Last Indicated Resolved Time MRSA 06/05/2021 06/05/2021 documented as of this encounter Care Teams Line Technician Relationship Specialty Start Date End Date Alejandro Blevins MD PCP - General FAMILY PRACTICE 12/10/19 documented as of this encounter
--- OUTSIDE RECORDS SUMMARY | 2024-07-11 09:52 | XMS_ITS | Encounter Summary ---
Author Organization [facility] Address [address] [place] [address]. [place] [address] [place] [address] Care Team Providers Care Spray Pilot Name Role Phone Alejandro Blevins MD Primary Care Provider [phone] Reason for Visit * Reason Comments Follow Up Chronic ITP Lab Results Encounter Details Date Type Department Care Team (Late st Contact Info) Description 07/05/2023 2:40 PM SYNTHETIC DEPARTMENT SUPERVISOR Office Visit [address] [place] [address] Roberta Alex MD [address] [place] [address] Follow Up (Chronic ITP); Lab Results Social History Tobacco Use Types Packs/Day Years Used Date Smoking Tobacco: Every Day Cigarettes Smokeless Tobacco: Never Alcohol Use Standard Drinks/Week Comments Not Currently 0 (1 standard drink = 0.6 oz pur e alcohol) Comments No Sex and Gender Information Value Date Recorded Sex Assigned at Not on file Legal Sex Female 11:30 PM SYNTHETIC DEPARTMENT SUPERVISOR Gender Identity Female 11/10/2021 3:09 PM CDT Sexual Orientation Straight 11/10/2021 3: 09 PM CDT documented as of this encounter Last Filed Vital Signs Vital Sign Reading Time Taken Comments Blood Pressure 124/78 07/05/2023 3:25 PM SYNTHETIC DEPARTMENT SUPERVISOR Pulse 66 07/05/2023 3:25 PM SYNTHETIC DEPARTMENT SUPERVISOR Temperature 35.7 ??C (96.3 ??F) 07/05/2023 3:25 PM CS T Respiratory Rate 18 07/05/2023 3:25 PM SYNTHETIC DEPARTMENT SUPERVISOR Oxygen Saturation 100% 07/05/2023 3:25 PM SYNTHETIC DEPARTMENT SUPERVISOR Inhaled Oxygen Concentration - - Weight 81.6 kg (179 lb 12.8 oz) 07/05/2023 3:25 PM SYNTHETIC DEPARTMENT SUPERVISOR Height - - Body Mass Index 31.85 10/28/2022 3:44 PM CDT documented in this encounter Functional Status * RETIRED Are you deaf or do you have serious difficulty hearing Answer Date of Assessment Author Status No 07/30/2020 10:48 PM SYNTHETIC DEPARTMENT SUPERVISOR Acti ve * RETIRED Are you blind or do you have serious difficulty seeing, even when wearing glasses? Answer Date of Assessment Author Status No 07/30/2020 10:46 PM SYNTHETIC DEPARTMENT SUPERVISOR Acti ve * Do you have serious difficulty walking or climbing stairs? Answer Date of Assessment Author Status No 07/30/2020 10:46 PM SYNTHETIC DEPARTMENT SUPERVISOR Nella Le RN Active * Do you have difficulty dressing or bathing? Answer Date of Assessment Author Status No 07/30/2020 10:46 PM SYNTHETIC DEPARTMENT SUPERVISOR Nella Le RN Active * Because of a physical, mental, or emotional condition, do you have difficulty doing errands alone such as visiting a doctor's office or shopping? Answer Date of Assessment Author Status No 07/30/2020 10:46 PM SYNTHETIC DEPARTMENT SUPERVISOR Nella Le RN Active documented as of this encounter Mental Status * Because of a physical, mental, or emotional condition, do you have serious difficulty concentrating, remembering, or making decisions? Answer Entry Date Author Status No 07/30/2020 10:46 PM SYNTHETIC DEPARTMENT SUPERVISOR Nella Le RN Active documented in [...] Roberta Alex MD CC: Alejandro Blevins MD HETIC DEPARTMENT SUPERVISOR documented in this encounter Plan of Treatment Upcoming Encounters Date Type Department Care Team (Late st Contact Info) Description 09/25/2024 11:30 AM SYNTHETIC DEPARTMENT SUPERVISOR Appointment [facility] [address] [place] [address] Roberta Alex MD [address] [place] [address] 09/25/2024 11:40 AM SYNTHETIC DEPARTMENT SUPERVISOR Office Visit [address] [place] [address] Roberta Alex MD [address] [place] [address] documented as of this encounter Visit Diagnoses Diagnosis Iron deficiency anemia due to chronic blood loss [D50.0]- Primary Iron deficiency anemia secondary to blood loss (chronic) Chronic ITP (idiopathic thrombocytopenia) ([facility]/HCC [facility]/HCC) Immune thrombocytopenic purpura documented in this encounter Additional Health Concerns Infection Onset Date Last Indicated Resolved Time MRSA 06/05/2021 06/05/2021 documented as of this encounter Care Teams Spray Pilot Relationship Specialty Start Date End Date Alejandro Blevins MD PCP - General FAMILY PRACTICE 12/10/19 documented as of this encounter
--- OUTSIDE RECORDS SUMMARY | 2024-07-11 09:52 | XMS_ITS | Encounter Summary ---
Author Organization [facility] Address [facility] [place] [address] [place] [address] Care Team Providers Care Editor Index Name Role Phone Alejandro Blevins MD Primary Care Provider [phone] Encounter Details Date Type Department Care Team (Latest Contact Info) Description 05/03/2023 3:10 PM CDT - 05/03/2023 11:59 PM CDT Hospital Encounter [address] [place] [address] Roberta Alex MD [address] [place] [address] Discharge Disposition: Home or Self Care (Routine Discharge) Social History Tobacco Use Types Packs/Day Years Used Date Smoking Tobacco: Every Day Cigarettes Smokeless Tobacco: Never Alcohol Use Standard Drinks/Week Comments Not Currently 0 (1 standard drink = 0.6 oz pur e alcohol) Comments No Sex and Gender Information Value Date Recorded Sex Assigned at Not on file Legal Sex Female 11:30 PM GREENHOUSE WORKER Gender Identity Female 11/10/2021 3:09 PM CDT Sexual Orientation Straight 11/10/2021 3: 09 PM CDT documented as of this encounter Functional Status * RETIRED Are you deaf or do you have serious difficulty hearing Answer Date of Assessment Author Status No 07/30/2020 10:48 PM GREENHOUSE WORKER Acti ve * RETIRED Are you blind or do you have serious difficulty seeing, even when wearing glasses? Answer Date of Assessment Author Status No 07/30/2020 10:46 PM GREENHOUSE WORKER Acti ve * Do you have [...] st Contact Info) Description 09/25/2024 11:30 AM GREENHOUSE WORKER Appointment [facility] [address] [place] [address] Roberta Alex MD [address] [place] [address] 09/25/2024 11:40 AM GREENHOUSE WORKER Office Visit [facility] [address] [place] [address] Roberta Alex MD [address] [place] [address] documented as of this encounter Visit Diagnoses Not on filedocumented in this encounter Additional Health Concerns Infection Onset Date Last Indicated Resolved Time MRSA 06/05/2021 06/05/2021 documented as of this encounter Care Teams Editor Index Relationship Specialty Start Date End Date Alejandro Blevins MD PCP - General FAMILY PRACTICE 12/10/19 documented as of this encounter
--- OUTSIDE RECORDS SUMMARY | 2024-07-11 09:52 | XMS_ITS | Encounter Summary ---
Author Organization [facility] Address [facility] [address] [place] [address] Care Team Providers Care Food Sanitarian Name Role Phone Alejandro Blevins MD Primary Care Provider Encounter Details Date Type Department Care Team (Late st Contact Info) Description 05/03/2023 Orders Only [address] [place] [address] Roberta Alex MD [address] [place] [address] Social History Tobacco Use Types Packs/Day Years Used Date Smoking Tobacco: Every Day Cigarettes Smokeless Tobacco: Never Alcohol Use Standard Drinks/Week Comments Not Currently 0 (1 standard drink = 0.6 oz pur e alcohol) Comments No Sex and Gender Information Value Date Recorded Sex Assigned at Not on file Legal Sex Female 11:30 PM PILLOWCASE FOLDER Gender Identity Female 11/10/2021 3:09 PM CDT Sexual Orientation Straight 11/10/2021 3: 09 PM CDT documented as of this encounter Functional Status * RETIRED Are you deaf or do you have serious difficulty hearing Answer Date of Assessment Author Status No 07/30/2020 10:48 PM PILLOWCASE FOLDER Acti ve * RETIRED Are you blind or do you have serious difficulty seeing, even when wearing glasses? Answer Date of Assessment Author Status No 07/30/2020 10:46 PM PILLOWCASE FOLDER Acti ve * Do you have serious difficulty walking or climbing stairs? Answer Date of Assessment Author Status No 07/30/2020 10:46 PM PILLOWCASE FOLDER Bringuet, Nella C, RN Active * Do you have difficulty dressing or bathing? Answer Date of Assessment Author Status No 07/30/2020 10:46 PM PILLOWCASE FOLDER Nella Le RN Active * Because of [...] Date Author Status No 07/30/2020 10:46 PM PILLOWCASE FOLDER Nella Le RN Active documented in this encounter Plan of Treatment Upcoming Encounters Date Type Department Care Team (Late st Contact Info) Description 09/25/2024 11:30 AM PILLOWCASE FOLDER Appointment [facility] [address] [place] [address] Roberta Alex MD [address] [place] [address] 09/25/2024 11:40 AM PILLOWCASE FOLDER Office Visit [facility] [address] [place] [address] Roberta Alex MD [address] [place] [address] documented as of this encounter Results * COMPREHENSIVE METABOLIC PANEL (07/05/2023 2:43 PM PILLOWCASE FOLDER) SODIUM S/P/B 140 136 - 145 MMOL/L 07/05/2023 3:39 PM PILLOWCASE FOLDER [facility] POTASSIUM S/P/B 3.9 3.5 - 5.1 MMOL/L 07/05/2023 3:39 PM PILLOWCASE FOLDER [facility] CHLORIDE S/P/B 105 98 - 107 MMOL/L 07/05/2023 3:39 PM [facility] CO2 25.7 21.0 - 32.0 MMOL/L 07/05/2023 3:39 PM PILLOWCASE FOLDER [facility] GLUCOSE 91 70 - 99 MG/DL 07/05/2023 3:39 PM [facility] Comment: MILD LIPEMIA. RESULT MAY BE AFFECTED. FASTING GLUCOSE 100 TO 125 MG/DL IS CONSISTENT WITH IMPAIRED FASTING GLUCOSE. FASTING GLUCOSE >125 MG/DL IS CONSISTENT WITH DIABETES. RANDOM GLUCOSE >200 MG/DL WITH HYPERGLYCEMIC SYMPTOMS IS CONSISTENT WITH DIABETES. PER ADA GUIDELINES BUN 16 6 - 24 MG/DL 07/05/2023 3:39 PM [facility] CREATININE S/P/B 0.86 0.55 - 1.02 MG/DL 07/05/2023 3:39 PM [facility] CALCIUM S/P/B 8.5 8.4 - 10.5 MG/DL 07/05/2023 3:39 PM [facility] BILIRUBIN TOTAL S/P/B 0.2 0.2 - 1.0 MG/DL 07/05/2023 3:39 PM [facility] Comment: THIS ASSAY IS NOT RECOMMENDED FOR PATIENTS UNDERGOING TREATMENT WITH ELTROMBOPAG DUE TO THE POTENTIAL FOR FALSELY ELEVATED RESULTS. ALKALINE PHOSPHATASE S/P/B 70 37 - 98 U/L 07/05/2023 3:39 PM [facility] AST 17 15 - 37 U/L 07/05/2023 3:39 PM [facility] ALT 24 14 - 59 U/L 07/05/2023 3:39 PM [facility] TOTAL PROTEIN S/P/B 6.9 6.4 - 8.2 G/DL 07/05/2023 3:39 PM [facility] ALBUMIN S/P/B 3.5 3.4 - 5.0 G/DL 07/05/2023 3:39 PM [facility] ANION GAP 9.3 5.0 - 15.0 MMOL/L 07/05/2023 3:39 PM [facility] OSMOLALITY (CALC) 291 MOSM/KG 023 3:39 PM [facility] Comment:REFERENCE RANGE NOT ESTABLISHED GFR ESTIMATE >90 >89 ML/MIN/1. 73 M2 07/05/2023 3:39 PM [facility] GFR NOTES GFR REFERENCE S: 07/05/2023 3:39 PM PILLOWCASE FOLDER [facility] Comment: THE ESTIMATED GFR IS CALCULATED [...] FAILURE: <15 ml/min/1.73 m2 07/05/2023 2:43 PM PILLOWCASE FOLDER us Roberta Alex MD LABORATORY Final Result [facility] [address] [place] [address], * (ABNORMAL) CBC W/DIFF AUTOMATED (07/05/2023 2:43 PM PILLOWCASE FOLDER) WBC 9.85 4.00 - 10.80 x10'3/uL 07/05/2023 3:09 PM PILLOWCASE FOLDER [facility] RBC 4.63 4.10 - 5.40 x10'6/uL 07/05/2023 3:09 PM PILLOWCASE FOLDER [facility] HGB 13.5 12.0 - 16.0 G/DL 07/05/2023 3:09 PM PILLOWCASE FOLDER [facility] HCT 42.4 36.0 - 47.0 % 07/05/2023 3:09 PM PILLOWCASE FOLDER [facility] MCV 91.6 78.0 - 100.0 FL 07/05/2023 3:09 PM PILLOWCASE FOLDER [facility] MCH 29.2 27.0 - 31.0 PG 07/05/2023 3:09 PM PILLOWCASE FOLDER [facility] MCHC 31.8(L) 33.0 - 36.0 G/DL 07/05/2023 3:09 PM PILLOWCASE FOLDER [facility] RDW 12.9 11.5 - 14.5 % 07/05/2023 3:09 PM PILLOWCASE FOLDER [facility] PLT 39(L) 150 - 350 x10'3/uL 07/05/2023 3:09 PM [facility] MPV RESULTS NOT AVAILABLE 7.4 - 10.4 FL 07/05/2023 3:09 PM PILLOWCASE FOLDER [facility] CBC COMMENT NORMAL REFERENCE RANGE NOT ESTABLISHED FOR THE PROPORTIONAL LEUKOCYTE DIFFERENTIAL. 07/05/2023 3:09 PM PILLOWCASE FOLDER [facility] NEUTROPHILS % 66.3 % 07/05/2023 3:20 PM [facility] LYMPHOCYTES % 18.0 % 07/05/2023 3:20 PM [facility] MONOCYTES % 5.5 % 07/05/2023 3:20 PM [facility] EOSINOPHILS % 9.0 % 07/05/2023 3:20 PM [facility] BASOPHILS % 0.8 % 07/05/2023 3:20 PM PILLOWCASE FOLDER [facility] IMMATURE GRANS % 0.4 % 07/05/20 3:20 PM PILLOWCASE FOLDER [facility] NRBC 0.0 % 07/05/2023 3:20 PM [facility] ABS. NEUTROPHILS 6.53 1.60 - 8.30 x10'3/uL 07/05/2023 3:20 PM PILLOWCASE FOLDER [facility] ABS. LYMPHOCYTES 1.77 0.80 - 4.70 x10'3/uL 07/05/2023 3:20 PM [facility] ABS. MONOCYTES 0.54 0.00 - 1.50 x10'3/uL 07/05/2023 3:20 PM [facility] ABS. EOSINOPHILS 0.89(H) 0.00 - 0.40 x10'3/uL 07/05/2023 3:20 PM [facility] ABS. BASOPHILS 0.08 0.00 - 0.20 x10'3/uL 07/05/2023 3:20 PM [facility] ABS. IMMATURE GRANULOCYTES 0.04(H) 0.00 - 0.03 x10'3/uL 07/05/2023 3:20 PM PILLOWCASE FOLDER [facility] ABS. NUCLEATED RBC'S 0.00 0.00 x10'3/uL 07/05/2023 3:20 PM PILLOWCASE FOLDER [facility] PLT MORPH. DECREASED 07/05/2023 3:20 PM PILLOWCASE FOLDER [facility] RBC MORPHOLOGY 1+ 07/05/2023 3:20 PM PILLOWCASE FOLDER [facility] Comment:ANISOCYTOSIS 07/05/2023 2:43 PM PILLOWCASE FOLDER us Roberta Alex MD LABORATORY Final Result [facility] [address] [place] [address], documented in this encounter Visit Diagnoses Diagnosis Chronic ITP (idiopathic thrombocytopenia) ([facility])- Primary Immune thrombocytopenic purpura documented in this encounter Additional Health Concerns Infection Onset Date Last Indicated Resolved Time MRSA 06/05/2021 06/05/2021 documented as of this encounter Care Teams Food Sanitarian Relationship Specialty Start Date End Date Alejandro Blevins MD PCP - General FAMILY PRACTICE 12/10/19 documented as of this encounter
--- OUTSIDE RECORDS SUMMARY | 2024-07-11 09:52 | XMS_ITS | Encounter Summary ---
Author Organization [facility] Address [address] [place] [address]. [place] [address] [place] [address] Care Team Providers Care Test Engineer Name Role Phone Alejandro Blevins MD Primary Care Provider [phone] Reason for Visit * Reason Comments Infusion Therapy * Treatment/Therapy Plan Authorization (Routine) - Closed Specialty Diagnoses / Procedures Referred By Contac t Referred To Contact Diagnoses Anemia Procedures Roberta Evans MD [address] [place] [address] Phone: tel: fax: [facility] [place] [address] Phone: tel: Referral ID Status Reason Start Date Expiration Date Visits Re quested Visits Authorized [id number] Closed 05/18/2023 05/18/2024 1 1 Encounter Details Date Type Department Care Team (Latest Contact Info) Description 06/02/2023 11:30 AM RETAIL AND RESTAURANT - 06/02/2023 11:36 AM [facility] Hospital Encounter [facility] [place] [address] Roberta Alex MD [address] [place] [address] Infusion Therapy Discharge Disposition: Home [...] file Legal Sex Female 11:30 PM RETAIL AND RESTAURANT Gender Identity Female 11/10/2021 3:09 PM CDT Sexual Orientation Straight 11/10/2021 3: 09 PM CDT documented as of this encounter Last Filed Vital Signs Vital Sign Reading Time Taken Comments Blood Pressure 112/74 06/02/2023 11:50 AM RETAIL AND RESTAURANT Pulse 85 06/02/2023 11:50 AM RETAIL AND RESTAURANT Temperature 36.2 ??C (97.2 ??F) 06/02/2023 1 1:50 AM RETAIL AND RESTAURANT Respiratory Rate 20 06/02/2023 11:5 0 AM RETAIL AND RESTAURANT Oxygen Saturation 99% 06/02/2023 11: 50 AM RETAIL AND RESTAURANT Inhaled Oxygen Concentration - - Weight 79.7 kg (175 lb 11.3 oz) 023 11:50 AM RETAIL AND RESTAURANT Height - - Body Mass Index 31.13 10/28/2022 3:44 PM CDT documented in this encounter Functional Status * RETIRED Are you deaf or do you have serious difficulty hearing Answer Date of Assessment Author Status No 07/30/2020 10:48 PM RETAIL AND RESTAURANT Acti ve * RETIRED Are you blind or do you have serious difficulty seeing, even when wearing glasses? Answer Date of Assessment Author Status No 07/30/2020 10:46 PM RETAIL AND RESTAURANT Acti ve * Do you have serious difficulty walking or climbing stairs? Answer Date of Assessment Author Status No 07/30/2020 10:46 PM RETAIL AND RESTAURANT Nella Le RN Active * Do you [...] PM Actions taken: Charge Capture section accepted [place] AND [place]URANT * Luis Gonzalez RN - 06/02/2023 11:30 [...] be free from signs/symptoms of physical injury [place] AND [place] documented in this encounter Plan of Treatment Upcoming Encounters Date Type Department Care Team (Late st Contact Info) Description 09/25/2024 11:30 AM RETAIL AND RESTAURANT Appointment [place] [id number] [facility] [place] [address] Roberta Alex MD [address] [place] [address] 09/25/2024 11:40 AM RETAIL AND RESTAURANT Office Visit [facility] [address] [facility] [place] [address] Roberta Alex MD [address] [place] [address] documented as of this encounter Visit Diagnoses [...] blood loss New Bag 06/02/2023 11:58 AM RETAIL AND RESTAURANT 200 mg 100 mL/hr documented in this encounter Additional Health Concerns Infection Onset Date Last Indicated Resolved Time MRSA 06/05/2021 06/05/2021 documented as of this encounter Care Teams Test Engineer Relationship Specialty Start Date End Date Alejandro Blevins MD PCP - General FAMILY PRACTICE 12/10/19 documented as of this encounter
--- OUTSIDE RECORDS SUMMARY | 2024-07-11 09:52 | XMS_ITS | Encounter Summary ---
Author Organization [facility] Address [address] [place] [address]. [place], [place] [address] [place] [address] Care Team Providers Care Iron Worker Foreman Name Role Phone Alejandro Blevins MD Primary Care Provider [phone] Encounter Details Date Type Department Care Team [...] file Legal Sex Female 11:30 PM BUSINESS EXCELLENCE MANAGER Gender Identity Female 11/10/2021 3:09 PM CDT Sexual Orientation Straight 11/10/2021 3: 09 PM CDT documented as of this encounter Functional Status * RETIRED Are you deaf or do you have serious difficulty hearing Answer Date of Assessment Author Status No 07/30/2020 10:48 PM BUSINESS EXCELLENCE MANAGER Acti ve * RETIRED Are you blind or do you have serious difficulty seeing, even when wearing glasses? Answer Date of Assessment Author Status No 07/30/2020 10:46 PM BUSINESS EXCELLENCE MANAGER Acti ve * Do you have serious difficulty walking or climbing stairs? Answer Date of Assessment Author Status No 07/30/2020 10:46 PM BUSINESS EXCELLENCE MANAGER Nella Le RN Active * Do you have difficulty dressing or bathing? Answer Date of Assessment Author Status No 07/30/2020 10:46 PM BUSINESS EXCELLENCE MANAGER Nella Le RN Active * Because of a physical, mental, or emotional condition, do you have difficulty doing errands alone such as visiting a doctor's office or shopping? Answer Date of Assessment Author Status No 07/30/2020 10:46 PM BUSINESS EXCELLENCE MANAGER Nella Le RN Active documented as of this encounter Mental Status * Because of a physical, mental, or emotional condition, do you have serious difficulty concentrating, remembering, or making decisions? Answer Entry Date Author Status No 07/30/2020 10:46 PM BUSINESS EXCELLENCE MANAGER Nella Le RN Active documented in this encounter Plan of Treatment Upcoming Encounters Date Type Department Care Team (Late st Contact Info) Description 09/25/2024 11:30 AM BUSINESS EXCELLENCE MANAGER Appointment [facility] [address] [facility] [place] [address] Roberta Alex MD [address] [place] [address] 09/25/2024 11:40 AM BUSINESS EXCELLENCE MANAGER Office Visit [facility] [address] [facility] [place] [address] Roberta Alex MD [address] [place] [address] documented as of this encounter Visit Diagnoses Not on filedocumented in this encounter Additional Health Concerns Infection Onset Date Last Indicated Resolved Time MRSA 06/05/2021 06/05/2021 documented as of this encounter Care Teams Iron Worker Foreman Relationship Specialty Start Date End Date Alejandro Blevins MD PCP - General FAMILY PRACTICE 12/10/19 documented as of this encounter
--- OUTSIDE RECORDS SUMMARY | 2024-07-11 09:53 | XMS_ITS | Encounter Summary ---
Author Organization [facility] Address [facility] [place] [address] [place] [address] Care Team Providers Care Radiation Protection Technician Name Role Phone Aeljandro Blevins MD Primary Care Provider [phone] Encounter Details Date Type Department Care Team (Latest Contact Info) Description 05/03/2023 1:50 PM CDT - 05/03/2023 3:09 PM CDT Hospital Encounter [address] [place] [address] Roberta Alex MD [address] [place] [address] Discharge Disposition: Home or Self Care (Routine Discharge) Social History Tobacco Use Types Packs/Day Years Used Date Smoking Tobacco: Every Day Cigarettes Smokeless Tobacco: Never Alcohol Use Standard Drinks/Week Comments Not Currently 0 (1 standard drink = 0.6 oz pur e alcohol) Comments No Sex and Gender Information Value Date Recorded Sex Assigned at Not on file Legal Sex Female 11:30 PM MOTORCYCLE TECHNICIAN Gender Identity Female 11/10/2021 3:09 PM CDT Sexual Orientation Straight 11/10/2021 3: 09 PM CDT documented as of this encounter Functional Status * RETIRED Are you deaf or do you have serious difficulty hearing Answer Date of Assessment Author Status No 07/30/2020 10:48 PM MOTORCYCLE TECHNICIAN Acti ve * RETIRED Are you blind or do you have serious difficulty seeing, even when wearing glasses? Answer Date of Assessment Author Status No 07/30/2020 10:46 PM MOTORCYCLE TECHNICIAN Acti ve * Do you have [...] st Contact Info) Description 09/25/2024 11:30 AM MOTORCYCLE TECHNICIAN Appointment [facility] [address] [place] [address] Roberta Alex MD [address] [place] [address] 09/25/2024 11:40 AM MOTORCYCLE TECHNICIAN Office Visit [facility] [place] [id number] [facility] [place] [address] Roberta Alex MD [address] [place] [address] documented as of this encounter Procedures Procedure Name Priority Date/Time Associated Diagnosis Comments URINALYSIS WI REFLEX TO CULTURE Routine 05/03/2023 3:15 PM CDT Healthcare maintenance CBC W/DIFF AUTOMATED Routine 05/03/2023 2:19 PM CDT Chronic ITP (idiopathic thrombocytopenia) ([facility]) documented in this encounter Results * URINALYSIS WI REFLEX TO CULTURE (05/03/2023 3:15 PM CDT) COLOR (U) YELLOW 05/03/2023 3:30 PM CDT [facility] TRANSPARENCY CLEAR 05/03/2023 3:30 PM CDT [facility] SPECIFIC GRAVITY (U) 1.020 1.000 - 1.025 05/03/2023 3:30 PM CDT [facility] U PH 6.0 5.0 - 8.0 05/03/2023 3:30 PM CDT [facility] LEUKOCYTES (U) NEGATIVE NEGATIVE 05/03/2023 3:30 PM CDT [facility] NITRITES NEGATIVE NEGATIVE 05/03/2023 3:30 PM CDT [facility] PROTEIN RANDOM (U) NEGATIVE NEGATIVE 05/03/2023 3:30 PM CDT [facility] GLUCOSE (U) NEGATIVE NEGATIVE 05/03/2023 3:30 PM CDT [facility] KETONES MG/DL (U) NEGATIVE NEGATIVE 05/03/2023 3:30 PM CDT [facility] UROBILINOGEN 0.2 <1.0 EU/DL 05/03/2023 3:30 PM CDT [facility] BILIRUBIN (U) NEGATIVE NEGATIVE 05/03/2023 3:30 PM CDT [facility] BLOOD (U) NEGATIVE NEGATIVE 05/03/2023 3:30 PM CDT [facility] WBC/HPF 0-5 0 - 5 /HPF 05/03/2023 3:30 PM CDT [facility] RBC/HPF 0-5 0 - 5 /HPF 05/03/2023 3:30 PM CDT [facility] EPI/LPF 0-5 /LPF 05/03/2023 3:30 PM CDT [facility] BACTERIA (U) NONE SEEN /HPF 05/03/2023 3:30 PM CDT [facility] MUCUS MODERATE 05/03/2023 3:30 PM CDT [facility] AMORPHOUS SEDIMENT FEW 05/03/2023 3:30 PM CDT [facility] REFLEX URINE CULTURE: NOT INDICATED 05/03/2023 3:31 PM CDT [facility] URINE SPECIMEN / Unknown 05/03/2023 3:15 PM CDT us Roberta Alex MD URINE ORDERABLES Final Result [facility] [address] [place] [address], * (ABNORMAL) CBC W/DIFF AUTOMATED (05/03/2023 2:19 PM CDT) WBC 8.09 4.00 - 10.80 x10'3/uL 05/03/2023 5:48 PM CDT [facility] RBC 4.51 4.10 - 5.40 x10'6/uL 05/03/2023 5:48 PM CDT [facility] HGB 13.4 12.0 - 16.0 G/DL 05/03/2023 5:48 PM CDT [facility] HCT 41.1 36.0 - 47.0 % 05/03/2023 5:48 PM CDT [facility] MCV 91.1 78.0 - 100.0 FL 05/03/2023 5:48 PM CDT [facility] MCH 29.7 27.0 - 31.0 PG 05/03/2023 5:48 PM CDT [facility] MCHC 32.6(L) 33.0 - 36.0 G/DL 05/03/2023 5:48 PM CDT [facility] RDW 12.2 11.5 - 14.5 % 05/03/2023 5:48 PM CDT [facility] PLT 59(L) 150 - 350 x10'3/uL 05/03/2023 5:48 PM CDT [facility] MPV 14.1(H) 7.4 - 10.4 FL 05/03/2023 5:48 PM CDT [facility] CBC COMMENT NORMAL REFERENCE RANGE NOT ESTABLISHED FOR THE PROPORTIONAL LEUKOCYTE DIFFERENTIAL. 05/03/2023 5:48 PM CDT [facility] NEUTROPHILS % 66.9 % 05/03/2023 6:32 PM CDT [facility] LYMPHOCYTES % 20.0 % 05/03/2023 6:32 PM CDT [facility] MONOCYTES % 5.7 % 05/03/2023 6:32 PM CDT [facility] EOSINOPHILS % 6.1 % 05/03/2023 6:32 PM CDT [facility] BASOPHILS % 0.9 % 05/03/2023 6:32 PM CDT [facility] IMMATURE GRANS % 0.4 % 05/03/20 6:32 PM CDT [facility] NRBC 0.0 % 05/03/2023 6:32 PM CDT [facility] ABS. NEUTROPHILS 5.42 1.60 - 8.30 x10'3/uL 05/03/2023 6:32 PM CDT [facility] ABS. LYMPHOCYTES 1.62 0.80 - 4.70 x10'3/uL 05/03/2023 6:32 PM CDT [facility] ABS. MONOCYTES 0.46 0.00 - 1.50 x10'3/uL 05/03/2023 6:32 PM CDT [facility] ABS. EOSINOPHILS 0.49(H) 0.00 - 0.40 x10'3/uL 05/03/2023 6:32 PM CDT [facility] ABS. BASOPHILS 0.07 0.00 - 0.20 x10'3/uL 05/03/2023 6:32 PM CDT [facility] ABS. IMMATURE GRANULOCYTES 0.03 0.00 - 0.03 x10'3/uL 05/03/2023 6:32 PM CDT [facility] ABS. NUCLEATED RBC'S 0.00 0.00 x10'3/uL 05/03/2023 6:32 PM CDT [facility] PLT MORPH. DECREASED 05/03/2023 6:32 PM CDT [facility] Comment:GIANT PLATELETS RBC MORPHOLOGY NORMAL 05/03/2023 6:32 PM CDT [facility] 05/03/2023 2:19 PM CDT us Roberta Alex MD LABORATORY Final Result [facility] [address] [place] [address], documented in this encounter Visit Diagnoses Diagnosis Chronic ITP (idiopathic thrombocytopenia) ([facility]) Immune thrombocytopenic purpura Healthcare maintenance Routine general medical examination at a health care facility documented in this encounter Additional Health Concerns Infection Onset Date Last Indicated Resolved Time MRSA 06/05/2021 06/05/2021 documented as of this encounter Care Teams Radiation Protection Technician Relationship Specialty Start Date End Date Alejandro Blevins MD PCP - General FAMILY PRACTICE 12/10/19 documented as of this encounter
--- OUTSIDE RECORDS SUMMARY | 2024-07-11 09:53 | XMS_ITS | Encounter Summary ---
Author Organization [facility] Address [address] [place] [address]. [place], [place] [address] [place] [address] Care Team Providers Care Chrome Tanning Drum Operator Name Role Phone Alejandro Blevins MD [...] on file Legal Sex Female 11:30 PM MOSS GATHERER Gender Identity Female 11/10/2021 3:09 PM CDT Sexual Orientation Straight 11/10/2021 3: 09 PM CDT documented as of this encounter Functional Status * RETIRED Are you deaf or do you have serious difficulty hearing Answer Date of Assessment Author Status No 07/30/2020 10:48 PM MOSS GATHERER Acti ve * RETIRED Are you blind or do you have serious difficulty seeing, even when wearing glasses? Answer Date of Assessment Author Status No 07/30/2020 10:46 PM MOSS GATHERER Acti ve * Do you have serious difficulty walking or climbing stairs? Answer Date of Assessment Author Status No 07/30/2020 10:46 PM MOSS GATHERER Nella eL RN Active * Do you have difficulty dressing or bathing? Answer Date of Assessment Author Status No 07/30/2020 10:46 PM MOSS GATHERER Nella Le RN Active * Because of a physical, mental, or emotional condition, do you have difficulty doing errands alone such as visiting a doctor's office or shopping? Answer Date of Assessment Author Status No 07/30/2020 10:46 PM MOSS GATHERER Nella Le RN Active documented as of this encounter Mental Status * Because of a physical, mental, or emotional condition, do you have serious difficulty concentrating, remembering, or making decisions? Answer Entry Date Author Status No 07/30/2020 10:46 PM MOSS GATHERER Nella Le RN Active documented in this encounter Plan of Treatment Upcoming Encounters Date Type Department Care Team (Late st Contact Info) Description 09/25/2024 11:30 AM MOSS GATHERER Appointment [facility] [address] [place] [address] Roberta Alex MD [address] [place] [address] 09/25/2024 11:40 AM MOSS GATHERER Office Visit [facility] [address] [place] [address] Roberta Alex MD [address] [place] [address] documented as of this encounter Visit Diagnoses Not on filedocumented in this encounter Additional Health Concerns Infection Onset Date Last Indicated Resolved Time MRSA 06/05/2021 06/05/2021 documented as of this encounter Care Teams Chrome Tanning Drum Operator Relationship Specialty Start Date End Date Alejandro Blevins MD PCP - General FAMILY PRACTICE 12/10/19 documented as of this encounter
--- OUTSIDE RECORDS SUMMARY | 2024-07-11 09:53 | XMS_ITS | Encounter Summary ---
Author Organization [facility] Address [address] [place] [address]. [place], [place] [address] [place] [address] Care Team Providers Care Music Industry Internship Name Role Phone Alejandro Blevins MD Primary Care Provider [phone] Encounter Details Date Type Department Care Team [...] file Legal Sex Female 11:30 PM MEDIA PROMOTER Gender Identity Female 11/10/2021 3:09 PM CDT Sexual Orientation Straight 11/10/2021 3: 09 PM CDT documented as of this encounter Functional Status * RETIRED Are you deaf or do you have serious difficulty hearing Answer Date of Assessment Author Status No 07/30/2020 10:48 PM MEDIA PROMOTER Acti ve * RETIRED Are you blind or do you have serious difficulty seeing, even when wearing glasses? Answer Date of Assessment Author Status No 07/30/2020 10:46 PM MEDIA PROMOTER Acti ve * Do you have serious difficulty walking or climbing stairs? Answer Date of Assessment Author Status No 07/30/2020 10:46 PM MEDIA PROMOTER Nella Le RN Active * Do you have difficulty dressing or bathing? Answer Date of Assessment Author Status No 07/30/2020 10:46 PM MEDIA PROMOTER Nella Le RN Active * Because of a physical, mental, or emotional condition, do you have difficulty doing errands alone such as visiting a doctor's office or shopping? Answer Date of Assessment Author Status No 07/30/2020 10:46 PM MEDIA PROMOTER Nella Le RN Active documented as of this encounter Mental Status * Because of a physical, mental, or emotional condition, do you have serious difficulty concentrating, remembering, or making decisions? Answer Entry Date Author Status No 07/30/2020 10:46 PM MEDIA PROMOTER Nella Le RN Active documented in this encounter Plan of Treatment Upcoming Encounters Date Type Department Care Team (Late st Contact Info) Description 09/25/2024 11:30 AM MEDIA PROMOTER Appointment [facility] [address] [place] [address] Roberta Alex MD [address] [place] [address] 09/25/2024 11:40 AM MEDIA PROMOTER Office Visit [facility] [address] [address] Roberta Alex MD [address] [place] [address] documented as of this encounter Visit Diagnoses Not on filedocumented in this encounter Additional Health Concerns Infection Onset Date Last Indicated Resolved Time MRSA 06/05/2021 06/05/2021 documented as of this encounter Care Teams Music Industry Internship Relationship Specialty Start Date End Date Alejandro Blevins MD PCP - General FAMILY PRACTICE 12/10/19 documented as of this encounter
--- OUTSIDE RECORDS SUMMARY | 2024-07-11 09:53 | XMS_ITS | Encounter Summary ---
Author Organization [facility] Address [address] [place] [address]. [place] [address] [place] [address] Care Team Providers Care Hotel General Manager Name Role Phone Alejandro Blevins MD Primary Care Provider [phone] Reason for Visit * Reason Comments Follow Up Acute ITP Lab Results Encounter Details Date Type Department Care Team (Late st Contact Info) Description 05/03/2023 2:00 PM CDT Office Visit [address] [place] [address] Roberta Alex MD [address] [place] [address] Follow Up (Acute ITP); Lab Results Social [...] file Legal Sex Female 11:30 PM METAL CASKET MAKER Gender Identity Female 11/10/2021 3:09 PM [...] Author Status No 07/30/2020 10:48 PM METAL CASKET MAKER Acti ve * RETIRED Are you blind or do you have serious difficulty seeing, even when wearing glasses? Answer Date of Assessment Author Status No 07/30/2020 10:46 PM METAL CASKET MAKER Acti ve * Do you have [...] due to moderate thrombocytopenia. 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[place] and she is usually pretty active on [...] Contact Info) Description 09/25/2024 11:30 AM METAL CASKET MAKER Appointment [facility] [address] [place] [address] Roberta Alex MD [address] [place] [address] 09/25/2024 11:40 AM METAL CASKET MAKER Office Visit [facility] [place] [address] [place] [address] Roberta Alex MD [address] [place] [address] documented as of this encounter Visit Diagnoses Diagnosis Chronic ITP (idiopathic thrombocytopenia) ([facility])- Primary Immune thrombocytopenic purpura Iron deficiency anemia secondary to inadequate dietary iron intake documented in this encounter Additional Health Concerns Infection Onset Date Last Indicated Resolved Time MRSA 06/05/2021 06/05/2021 documented as of this encounter Care Teams Hotel General Manager Relationship Specialty Start Date End Date Alejandro Blevins MD PCP - General FAMILY PRACTICE 12/10/19 documented as of this encounter
--- OUTSIDE RECORDS SUMMARY | 2024-07-11 09:53 | XMS_ITS | Encounter Summary ---
Author Organization [facility] Address [address] [place] [address]. [place], [place] [address] [place] [address] Care Team Providers Care Pelt Salter Name Role Phone Alejandro Blevins MD Primary Care Provider [phone] Encounter Details Date Type Department Care Team [...] on file Legal Sex Female 11:30 PM AMPLIFIER MECHANIC Gender Identity Female 11/10/2021 3:09 PM CDT Sexual Orientation Straight 11/10/2021 3: 09 PM CDT documented as of this encounter Functional Status * RETIRED Are you deaf or do you have serious difficulty hearing Answer Date of Assessment Author Status No 07/30/2020 10:48 PM AMPLIFIER MECHANIC Acti ve * RETIRED Are you blind or do you have serious difficulty seeing, even when wearing glasses? Answer Date of Assessment Author Status No 07/30/2020 10:46 PM AMPLIFIER MECHANIC Acti ve * Do you have serious difficulty walking or climbing stairs? Answer Date of Assessment Author Status No 07/30/2020 10:46 PM AMPLIFIER MECHANIC Nella Le RN Active * Do you have difficulty dressing or bathing? Answer Date of Assessment Author Status No 07/30/2020 10:46 PM AMPLIFIER MECHANIC Nella Le RN Active * Because of a physical, mental, or emotional condition, do you have difficulty doing errands alone such as visiting a doctor's office or shopping? Answer Date of Assessment Author Status No 07/30/2020 10:46 PM AMPLIFIER MECHANIC Nella Le RN Active documented as of this encounter Mental Status * Because of a physical, mental, or emotional condition, do you have serious difficulty concentrating, remembering, or making decisions? Answer Entry Date Author Status No 07/30/2020 10:46 PM AMPLIFIER MECHANIC Nella Le RN Active documented in this encounter Plan of Treatment Upcoming Encounters Date Type Department Care Team (Late st Contact Info) Description 09/25/2024 11:30 AM AMPLIFIER MECHANIC Appointment [facility] [address] [facility] [facility] [address] [facility] [place] [address] Roberta Alex MD [address] [place] [address] 09/25/2024 11:40 AM AMPLIFIER MECHANIC Office Visit [facility] [address] [facility] [place] [address] Roberta Alex MD [address] [place] [address] documented as of this encounter Visit Diagnoses Not on filedocumented in this encounter Additional Health Concerns Infection Onset Date Last Indicated Resolved Time MRSA 06/05/2021 06/05/2021 documented as of this encounter Care Teams Pelt Salter Relationship Specialty Start Date End Date Alejandro Blevins MD PCP - General FAMILY PRACTICE 12/10/19 documented as of this encounter
--- OUTSIDE RECORDS SUMMARY | 2024-07-11 09:53 | XMS_ITS | Encounter Summary ---
Author Organization [facility] Address [address] [place] [address]. [place] [address] [place] [address] Care Team Providers Care Cash Van Salesperson Name Role Phone Alejandro Blevins MD Primary Care Provider [phone] Encounter Details Date Type Department Care Team (Latest Contact Info) Description 04/19/2023 8:00 AM CDT - 04/19/2023 11:59 PM CDT Hospital Encounter [address] [place] [address] Roberta Alex MD [address] [place] [address] Discharge Disposition: Home or Self Care (Routine Discharge) Social History Tobacco Use Types Packs/Day Years Used Date Smoking Tobacco: Every Day Cigarettes Smokeless Tobacco: Never Alcohol Use Standard Drinks/Week Comments Not Currently 0 (1 standard drink = 0.6 oz pur e alcohol) Comments No Sex and Gender Information Value Date Recorded Sex Assigned at Not on file Legal Sex Female 11:30 PM CUTTER WET MACHINE Gender Identity Female 11/10/2021 3:09 PM CDT Sexual Orientation Straight 11/10/2021 3: 09 PM CDT documented as of this encounter Functional Status * RETIRED Are you deaf or do you have serious difficulty hearing Answer Date of Assessment Author Status No 07/30/2020 10:48 PM CUTTER WET MACHINE Acti ve * RETIRED Are you blind or do you have serious difficulty seeing, even when wearing glasses? Answer Date of Assessment Author Status No 07/30/2020 10:46 PM CUTTER WET MACHINE Acti ve * Do you have serious [...] st Contact Info) Description 09/25/2024 11:30 AM CUTTER WET MACHINE Appointment [facility] [address] [facility] [address] [address] [place] [address] Roberta Alex MD [address] [place] [address] 09/25/2024 11:40 AM CUTTER WET MACHINE Office Visit [facility] [place] [address] [place] [address] Roberta Alex MD [address] [place] [address] documented as of this encounter Procedures Procedure Name Priority Date/Time Associated Diagnosis Comments IRON SAT PANEL (IRON,IBC,%SAT) Routine 04/19/2023 9:35 AM CDT Chronic ITP (idiopathic thrombocytopenia) ([facility]HCC) CBC W/DIFF AUTOMATED Routine 04/19/2023 9:35 AM CDT Chronic ITP (idiopathic thrombocytopenia) ([facility] H[facility]/HCC) FERRITIN Routine 04/19/2023 9:35 AM CDT Chronic ITP (idiopathic thrombocytopenia) ([facility] HHS/HCC) documented in this encounter Results * FERRITIN (04/19/2023 9:35 AM CDT) FERRITIN 31.9 8 - 252 NG/ML 04/19/2023 10:11 AM CDT [facility] 04/19/2023 9:35 AM CDT us Roberta Alex MD LABORATORY Final Result [facility] [address] [place] [address], * IRON SAT PANEL (IRON,IBC,%SAT) (04/19/2023 9:35 AM CDT) IRON 55 50 - 170 MCG/DL 04/19/2023 10:24 AM CDT [facility] IRON BINDING CAPACITY 318 250 - 450 MCG/DL 04/19/2023 10:24 AM CDT [facility] IRON SATURATION 17 % 10:24 AM CDT [facility] Comment:REFERENCE RANGE NOT ESTABLISHED 04/19/2023 9:35 AM CDT Roberta Alex MD LABORATORY Final Result [facility] [address] [employer] [place] [id number], * (ABNORMAL) CBC W/DIFF AUTOMATED (04/19/2023 9:35 AM CDT) WBC 7.62 4.00 - 10.80 x10'3/uL 04/19/2023 10:12 AM CDT [facility] RBC 4.53 4.10 - 5.40 x10'6/uL 04/19/2023 10:12 AM CDT [facility] HGB 13.5 12.0 - 16.0 G/DL 04/19/2023 10:12 AM CDT [facility] HCT 41.4 36.0 - 47.0 % 04/19/2023 10:12 AM CDT [facility] MCV 91.4 78.0 - 100.0 FL 04/19/2023 10:12 AM CDT [facility] MCH 29.8 27.0 - 31.0 PG 04/19/2023 10:12 AM CDT [facility] MCHC 32.6(L) 33.0 - 36.0 G/DL 04/19/2023 10:12 AM CDT [facility] RDW 12.4 11.5 - 14.5 % 04/19/2023 10:12 AM CDT [facility] PLT 50(L) 150 - 350 x10'3/uL 04/19/2023 10:12 AM CDT [facility] MPV 14.8(H) 7.4 - 10.4 FL 04/19/2023 10:12 AM CDT [facility] CBC COMMENT NORMAL REFERENCE RANGE NOT ESTABLISHED FOR THE PROPORTIONAL LEUKOCYTE DIFFERENTIAL. 04/19/2023 10:12 AM CDT [facility] NEUTROPHILS % 65.3 % 04/19/2023 10:23 AM CDT [facility] LYMPHOCYTES % 20.6 % 04/19/2023 10:23 AM CDT [facility] MONOCYTES % 4.6 % 04/19/2023 10:23 AM CDT [facility] EOSINOPHILS % 7.9 % 04/19/2023 10:23 AM CDT [facility] BASOPHILS % 1.2 % 04/19/2023 10:23 AM CDT [facility] IMMATURE GRANS % 0.4 % 04/19/20 10:23 AM CDT [facility] NRBC 0.0 % 04/19/2023 10:23 AM CDT [facility] ABS. NEUTROPHILS 4.98 1.60 - 8.30 x10'3/uL 04/19/2023 10:23 AM CDT [facility] ABS. LYMPHOCYTES 1.57 0.80 - 4.70 x10'3/uL 04/19/2023 10:23 AM CDT [facility] ABS. MONOCYTES 0.35 0.00 - 1.50 x10'3/uL 04/19/2023 10:23 AM CDT [facility] ABS. EOSINOPHILS 0.60(H) 0.00 - 0.40 x10'3/uL 04/19/2023 10:23 AM CDT [facility] ABS. BASOPHILS 0.09 0.00 - 0.20 x10'3/uL 04/19/2023 10:23 AM CDT [facility] ABS. IMMATURE GRANULOCYTES 0.03 0.00 - 0.03 x10'3/uL 04/19/2023 10:23 AM CDT [facility] ABS. NUCLEATED RBC'S 0.00 0.00 x10'3/uL 04/19/2023 10:23 AM CDT [facility] PLT MORPH. DECREASED 04/19/2023 10:23 AM CDT [facility] RBC MORPHOLOGY NORMAL 04/19/2023 10:23 AM CDT [facility] 04/19/2023 9:35 AM CDT us Roberta Alex MD LABORATORY Final Result [facility] [address] [place] [address], documented in this encounter Visit Diagnoses Diagnosis Chronic ITP (idiopathic thrombocytopenia) ([facility]/HCC) Immune thrombocytopenic purpura documented in this encounter Additional Health Concerns Infection Onset Date Last Indicated Resolved Time MRSA 06/05/2021 06/05/2021 documented as of this encounter Care Teams Cash Van Salesperson Relationship Specialty Start Date End Date Alejandro Blevins MD PCP - General FAMILY PRACTICE 12/10/19 documented as of this encounter
--- OUTSIDE RECORDS SUMMARY | 2024-07-11 09:53 | XMS_ITS | Encounter Summary ---
Author Organization [facility] Address [address] [place] [address]. [place] [address] [place] [address] Care Team Providers Care Pain Management Nurse Name Role Phone Alejandro Blevins MD Primary Care Provider [phone] Encounter Details Date Type Department Care Team (Latest Contact Info) Description 04/26/2023 8:00 AM CDT - 04/26/2023 11:59 PM CDT Hospital Encounter [address] [place] [address] Roberta Alex MD [address] [place] [address] Discharge Disposition: Home or Self Care (Routine Discharge) Social History Tobacco Use Types Packs/Day Years Used Date Smoking Tobacco: Every Day Cigarettes Smokeless Tobacco: Never Alcohol Use Standard Drinks/Week Comments Not Currently 0 (1 standard drink = 0.6 oz pur e alcohol) Comments No Sex and Gender Information Value Date Recorded Sex Assigned at Not on file Legal Sex Female 11:30 PM ACTIVITIES SPECIALIST Gender Identity Female 11/10/2021 3:09 PM CDT Sexual Orientation Straight 11/10/2021 3: 09 PM CDT documented as of this encounter Functional Status * RETIRED Are you deaf or do you have serious difficulty hearing Answer Date of Assessment Author Status No 07/30/2020 10:48 PM ACTIVITIES SPECIALIST Acti ve * RETIRED Are you blind or do you have serious difficulty seeing, even when wearing glasses? Answer Date of Assessment Author Status No 07/30/2020 10:46 PM ACTIVITIES SPECIALIST Acti ve * Do you have [...] st Contact Info) Description 09/25/2024 11:30 AM ACTIVITIES SPECIALIST Appointment [facility] [address] [place] [address] Roberta Alex MD [address] [place] [address] 09/25/2024 11:40 AM ACTIVITIES SPECIALIST Office Visit [facility] [place] [id number] [place] [address] Roberta Alex MD [address] [place] [address] documented as of this encounter Procedures Procedure Name Priority Date/Time Associated Diagnosis Comments CBC W/DIFF AUTOMATED Routine 04/26/2023 1:13 PM CDT Chronic ITP (idiopathic thrombocytopenia) (CMS/HCC HHS/HCC) documented in this encounter Results * (ABNORMAL) CBC W/DIFF AUTOMATED (04/26/2023 1:13 PM CDT) WBC 11.78(H) 4.00 - 10.80 x10'3/uL 04/26/2023 2:19 PM CDT [facility] RBC 4.45 4.10 - 5.40 x10'6/uL 04/26/2023 2:19 PM CDT [facility] HGB 13.1 12.0 - 16.0 G/DL 04/26/2023 2:19 PM CDT [facility] HCT 40.4 36.0 - 47.0 % 04/26/2023 2:19 PM CDT [facility] MCV 90.8 78.0 - 100.0 FL 04/26/2023 2:19 PM CDT [facility] MCH 29.4 27.0 - 31.0 PG 04/26/2023 2:19 PM CDT [facility] MCHC 32.4(L) 33.0 - 36.0 G/DL 04/26/2023 2:19 PM CDT [facility] RDW 12.3 11.5 - 14.5 % 04/26/2023 2:19 PM CDT [facility] PLT 44(L) 150 - 350 x10'3/uL 04/26/2023 2:19 PM CDT [facility] MPV 14.6(H) 7.4 - 10.4 FL 04/26/2023 2:19 PM CDT [facility] CBC COMMENT NORMAL REFERENCE RANGE NOT ESTABLISHED FOR THE PROPORTIONAL LEUKOCYTE DIFFERENTIAL. 04/26/2023 2:19 PM CDT [facility] NEUTROPHILS % 78.1 % 04/26/2023 2:20 PM CDT [facility] LYMPHOCYTES % 13.5 % 04/26/2023 2:20 PM CDT [facility] MONOCYTES % 3.9 % 04/26/2023 2:20 PM CDT [facility] EOSINOPHILS % 3.5 % 04/26/2023 2:20 PM CDT [facility] BASOPHILS % 0.7 % 04/26/2023 2:20 PM CDT [facility] IMMATURE GRANS % 0.3 % 04/26/20 2:20 PM CDT [facility] NRBC 0.0 % 04/26/2023 2:20 PM CDT [facility] ABS. NEUTROPHILS 9.20(H) 1.60 - 8.30 x10'3/uL 04/26/2023 2:20 PM CDT [facility] ABS. LYMPHOCYTES 1.59 0.80 - 4.70 x10'3/uL 04/26/2023 2:20 PM CDT [facility] ABS. MONOCYTES 0.46 0.00 - 1.50 x10'3/uL 04/26/2023 2:20 PM CDT [facility] ABS. EOSINOPHILS 0.41(H) 0.00 - 0.40 x10'3/uL 04/26/2023 2:20 PM CDT [facility] ABS. BASOPHILS 0.08 0.00 - 0.20 x10'3/uL 04/26/2023 2:20 PM CDT [facility] ABS. IMMATURE GRANULOCYTES 0.04(H) 0.00 - 0.03 x10'3/uL 04/26/2023 2:20 PM CDT [facility] ABS. NUCLEATED RBC'S 0.00 0.00 x10'3/uL 04/26/2023 2:20 PM CDT [facility] PLT MORPH. DECREASED 04/26/2023 2:20 PM CDT [facility] RBC MORPHOLOGY NORMAL 04/26/2023 2:20 PM CDT [facility] 04/26/2023 1:13 PM CDT us Roberta Alex MD LABORATORY Final Result [facility] [address] [place] [address], documented in this encounter Visit Diagnoses Diagnosis Chronic ITP (idiopathic thrombocytopenia) ([facility]CC [facility]/HCC) Immune thrombocytopenic purpura documented in this encounter Additional Health Concerns Infection Onset Date Last Indicated Resolved Time MRSA 06/05/2021 06/05/2021 documented as of this encounter Care Teams Pain Management Nurse Relationship Specialty Start Date End Date Alejandro Blevins MD PCP - General FAMILY PRACTICE 12/10/19 documented as of this encounter
--- OUTSIDE RECORDS SUMMARY | 2024-07-11 09:53 | XMS_ITS | Encounter Summary ---
Author Organization [facility] Address [facility] [place] [address] [place] [address] Care Team Providers Care Vp Organizational Development Name Role Phone Alejandro Blevins MD Primary Care Provider [phone] Encounter Details Date Type Department Care Team (Late st Contact Info) Description 05/03/2023 Orders Only [address] [place] [address] Roberta Alex MD [address] [place] [address] Social History Tobacco Use Types Packs/Day Years Used Date Smoking Tobacco: Every Day Cigarettes Smokeless Tobacco: Never Alcohol Use Standard Drinks/Week Comments Not Currently 0 (1 standard drink = 0.6 oz pur e alcohol) Comments No Sex and Gender Information Value Date Recorded Sex Assigned at Not on file Legal Sex Female 11:30 PM CONTACT CENTER ANALYST Gender Identity Female 11/10/2021 3:09 PM CDT Sexual Orientation Straight 11/10/2021 3: 09 PM CDT documented as of this encounter Functional Status * RETIRED Are you deaf or do you have serious difficulty hearing Answer Date of Assessment Author Status No 07/30/2020 10:48 PM CONTACT CENTER ANALYST Acti ve * RETIRED Are you blind or do you have serious difficulty seeing, even when wearing glasses? Answer Date of Assessment Author Status No 07/30/2020 10:46 PM CONTACT CENTER ANALYST Acti ve * Do you have serious difficulty walking or climbing stairs? Answer Date of Assessment Author Status No 07/30/2020 10:46 PM CONTACT CENTER ANALYST Bringuet, Nella C, RN Active * Do you have difficulty dressing or bathing? Answer Date of Assessment Author Status No 07/30/2020 10:46 PM CONTACT CENTER ANALYST Nella Le RN Active * Because [...] st Contact Info) Description 09/25/2024 11:30 AM CONTACT CENTER ANALYST Appointment [facility] [address] [place] [address] Roberta Alex MD [address] [place] [address] 09/25/2024 11:40 AM CONTACT CENTER ANALYST Office Visit [facility] [address] [place] [address] Roberta Alex MD [address] [place] [address] documented as of this encounter Results * URINALYSIS WI REFLEX TO CULTURE (05/03/2023 3:15 PM CDT) COLOR (U) YELLOW 05/03/2023 3:30 PM CDT [facility] TRANSPARENCY CLEAR 05/03/2023 3:30 PM CDT [facility] SPECIFIC GRAVITY (U) 1.020 1.000 - 1.025 05/03/2023 3:30 PM CDT [facility] U PH 6.0 5.0 - 8.0 05/03/2023 3:30 PM CDT [facility] LEUKOCYTES (U) NEGATIVE NEGATIVE 05/03/2023 3:30 PM CDT [facility] NITRITES NEGATIVE NEGATIVE 05/03/2023 3:30 PM CDT [facility] PROTEIN RANDOM (U) NEGATIVE NEGATIVE 05/03/2023 3:30 PM CDT [facility] GLUCOSE (U) NEGATIVE NEGATIVE 05/03/2023 3:30 PM CDT [facility] KETONES MG/DL (U) NEGATIVE NEGATIVE 05/03/2023 3:30 PM CDT [facility] UROBILINOGEN 0.2 <1.0 EU/DL 05/03/2023 3:30 PM CDT [facility] BILIRUBIN (U) NEGATIVE NEGATIVE 05/03/2023 3:30 PM CDT [facility] BLOOD (U) NEGATIVE NEGATIVE 05/03/2023 3:30 PM CDT [facility] WBC/HPF 0-5 0 - 5 /HPF 05/03/2023 3:30 PM CDT [facility] RBC/HPF 0-5 0 - 5 /HPF 05/03/2023 3:30 PM CDT [facility] EPI/LPF 0-5 /LPF 05/03/2023 3:30 PM CDT [facility] BACTERIA (U) NONE SEEN /HPF 05/03/2023 3:30 PM CDT [facility] MUCUS MODERATE 05/03/2023 3:30 PM CDT [facility] AMORPHOUS SEDIMENT FEW 05/03/2023 3:30 PM CDT [facility] REFLEX URINE CULTURE: NOT INDICATED 05/03/2023 3:31 PM CDT [facility] URINE SPECIMEN / Unknown 05/03/2023 3:15 PM CDT us Roberta Alex MD URINE ORDERABLES Final Result [facility] [address] [place] [address], documented in this encounter Visit Diagnoses Diagnosis Healthcare maintenance- Primary Routine general medical examination at a health care facility documented in this encounter Additional Health Concerns Infection Onset Date Last Indicated Resolved Time MRSA 06/05/2021 06/05/2021 documented as of this encounter Care Teams Vp Organizational Development Relationship Specialty Start Date End Date Alejandro Blevins MD PCP - General FAMILY PRACTICE 12/10/19 documented as of this encounter
--- OUTSIDE RECORDS SUMMARY | 2024-07-11 09:54 | XMS_ITS | Encounter Summary ---
Author Organization [facility] Address [facility] [place] [address] [place] [address] Care Team Providers Care Exhibit Specialist Name Role Phone Alejandro Blevins MD Primary Care Provider [phone] Encounter Details Date Type Department Care Team (Late st Contact Info) Description 04/05/2023 Orders Only [address] [place] [address] Carey Pang, APNP [address] [place] [id number] Social History Tobacco Use Types Packs/Day Years Used Date Smoking Tobacco: Every Day Cigarettes Smokeless Tobacco: Never Alcohol Use Standard Drinks/Week Comments Not Currently 0 (1 standard drink = 0.6 oz pur e alcohol) Comments No Sex and Gender Information Value Date Recorded Sex Assigned at Not on file Legal Sex Female 11:30 PM WOOD HACKER Gender Identity Female 11/10/2021 3:09 PM CDT Sexual Orientation Straight 11/10/2021 3: 09 PM CDT documented as of this encounter Functional Status * RETIRED Are you deaf or do you have serious difficulty hearing Answer Date of Assessment Author Status No 07/30/2020 10:48 PM WOOD HACKER Acti ve * RETIRED Are you blind or do you have serious difficulty seeing, even when wearing glasses? Answer Date of Assessment Author Status No 07/30/2020 10:46 PM WOOD HACKER Acti ve * Do you have serious difficulty walking or climbing stairs? Answer Date of Assessment Author Status No 07/30/2020 10:46 PM WOOD HACKER Nella Le RN Active * Do you have difficulty dressing or bathing? Answer Date of Assessment Author Status No 07/30/2020 10:46 PM WOOD HACKER Nella Le RN Active * Because of [...] Contact Info) Description 09/25/2024 11:30 AM WOOD HACKER Appointment [facility] [place] [address] Roberta Alex MD [address] [place] [address] 09/25/2024 11:40 AM WOOD HACKER Office Visit [facility] [place] [address] Roberta Alex MD [address] [place] [address] documented as of this encounter Results * (ABNORMAL) CBC W/DIFF AUTOMATED (04/11/2023 8:07 AM CDT) [facility] WBC 9.21 4.00 - 10.80 x10'3/uL 04/11/2023 8:22 AM CDT [facility] RBC 4.45 4.10 - 5.40 x10'6/uL 04/11/2023 8:22 AM CDT [facility] HGB 13.1 12.0 - 16.0 G/DL 04/11/2023 8:22 AM CDT [facility] HCT 41.0 36.0 - 47.0 % 04/11/2023 8:22 AM CDT [facility] MCV 92.1 78.0 - 100.0 FL 04/11/2023 8:22 AM CDT [facility] MCH 29.4 27.0 - 31.0 PG 04/11/2023 8:22 AM CDT [facility] MCHC 32.0(L) 33.0 - 36.0 G/DL 04/11/2023 8:22 AM CDT [facility] RDW 12.2 11.5 - 14.5 % 04/11/2023 8:22 AM CDT [facility] PLT 51(L) 150 - 350 x10'3/uL 04/11/2023 8:22 AM CDT [facility] MPV 14.5(H) 7.4 - 10.4 FL 04/11/2023 8:22 AM CDT [facility] CBC COMMENT NORMAL REFERENCE RANGE NOT ESTABLISHED FOR THE PROPORTIONAL LEUKOCYTE DIFFERENTIAL. 04/11/2023 8:22 AM CDT [facility] NEUTROPHILS % 68.1 % 04/11/2023 8:50 AM CDT [facility] LYMPHOCYTES % 20.0 % 04/11/2023 8:50 AM CDT [facility] MONOCYTES % 4.6 % 04/11/2023 8:50 AM CDT [facility] EOSINOPHILS % 6.1 % 04/11/2023 8:50 AM CDT [facility] BASOPHILS % 0.8 % 04/11/2023 8:50 AM CDT [facility] IMMATURE GRANS % 0.4 % 04/11/20 8:50 AM CDT [facility] NRBC 0.0 % 04/11/2023 8:50 AM CDT [facility] ABS. NEUTROPHILS 6.28 1.60 - 8.30 x10'3/uL 04/11/2023 8:50 AM CDT [facility] ABS. LYMPHOCYTES 1.84 0.80 - 4.70 x10'3/uL 04/11/2023 8:50 AM CDT [facility] ABS. MONOCYTES 0.42 0.00 - 1.50 x10'3/uL 04/11/2023 8:50 AM CDT [facility] ABS. EOSINOPHILS 0.56(H) 0.00 - 0.40 x10'3/uL 04/11/2023 8:50 AM CDT [facility] ABS. BASOPHILS 0.07 0.00 - 0.20 x10'3/uL 04/11/2023 8:50 AM CDT [facility] ABS. IMMATURE GRANULOCYTES 0.04(H) 0.00 - 0.03 x10'3/uL 04/11/2023 8:50 AM CDT [facility] ABS. NUCLEATED RBC'S 0.00 0.00 x10'3/uL 04/11/2023 8:50 AM CDT [facility] PLT MORPH. DECREASED 04/11/2023 8:50 AM CDT [facility] RBC MORPHOLOGY NORMAL 04/11/2023 8:50 AM CDT [facility] 04/11/2023 8:07 AM CDT us [facility] Final Res ult [facility] [address] [place] [address], documented in this encounter Visit Diagnoses Diagnosis Chronic ITP (idiopathic thrombocytopenia) ([facility])- Primary Immune thrombocytopenic purpura documented in this encounter Additional Health Concerns Infection Onset Date Last Indicated Resolved Time MRSA 06/05/2021 06/05/2021 documented as of this encounter Care Teams Exhibit Specialist Relationship Specialty Start Date End Date Alejandro Blevins MD PCP - General FAMILY PRACTICE 12/10/19 documented as of this encounter
--- OUTSIDE RECORDS SUMMARY | 2024-07-11 09:54 | XMS_ITS | Encounter Summary ---
Author Organization [facility] Address [facility] [place] [address] [place] [address] Care Team Providers Care Adjunct Sociology Professor Name Role Phone Alejandro Blevins MD Primary Care Provider [phone] Encounter Details Date Type Department Care Team (Latest Contact Info) Description 03/24/2023 2:15 PM CDT - 03/24/2023 11:59 PM CDT Hospital Encounter [address] [place] [address] Roberta Alex MD [address] [place] [address] Discharge Disposition: Home or Self Care (Routine Discharge) Social History Tobacco Use Types Packs/Day Years Used Date Smoking Tobacco: Every Day Cigarettes Smokeless Tobacco: Never Alcohol Use Standard Drinks/Week Comments Not Currently 0 (1 standard drink = 0.6 oz pur e alcohol) Comments No Sex and Gender Information Value Date Recorded Sex Assigned at Not on file Legal Sex Female 11:30 PM ACCOUNTING AUDITOR Gender Identity Female 11/10/2021 3:09 PM CDT Sexual Orientation Straight 11/10/2021 3: 09 PM CDT documented as of this encounter Functional Status * RETIRED Are you deaf or do you have serious difficulty hearing Answer Date of Assessment Author Status No 07/30/2020 10:48 PM ACCOUNTING AUDITOR Acti ve * RETIRED Are you blind or do you have serious difficulty seeing, even when wearing glasses? Answer Date of Assessment Author Status No 07/30/2020 10:46 PM ACCOUNTING AUDITOR Acti ve * Do you have serious [...] may be found under the media tab. UNTING AUDITOR * Talia Butcher MD - 03/24/2023 2:15 PM CDT Additional documentation from 03/20/23-04/05/23 may be found under the media tab. UNTING AUDITOR documented in this encounter Plan of Treatment Upcoming Encounters Date Type Department Care Team (Late st Contact Info) Description 09/25/2024 11:30 AM ACCOUNTING AUDITOR Appointment [facility] [place] [address] Roberta Alex MD [address] [place] [address] 09/25/2024 11:40 AM ACCOUNTING AUDITOR Office Visit [facility] [place] [address] Roberta Alex MD [address] [place], [place] [address] documented as of this encounter Procedures Procedure Name Priority Date/Time Associated Diagnosis Comments CBC W/DIFF AUTOMATED Routine 03/24/2023 2:22 PM CDT Acute ITP (CMS/HCC HHS/HCC) documented in this encounter Results * (ABNORMAL) CBC W/DIFF AUTOMATED (03/24/2023 2:22 PM CDT) WBC 8.77 4.00 - 10.80 x10'3/uL 04/08/2023 12:01 PM CDT [facility] Comment:SPECIMEN PROCESSED D URING DOWNTIME RBC 4.60 4.10 - 5.40 x10'6/uL 04/08/2023 12:01 PM CDT [facility] HGB 13.9 12.0 - 16.0 G/DL 04/08/2023 12:01 PM CDT [facility] HCT 42.4 36.0 - 47.0 % 04/08/2023 12:01 PM CDT [facility] MCV 92.2 78.0 - 100.0 FL 04/08/2023 12:01 PM CDT [facility] MCH 30.2 27.0 - 31.0 PG 04/08/2023 12:01 PM CDT [facility] MCHC 32.8(L) 33.0 - 36.0 G/DL 04/08/2023 12:01 PM CDT [facility] RDW 12.3 11.5 - 14.5 % 04/08/2023 12:01 PM CDT [facility] PLT 41(L) 150 - 350 x10'3/uL 04/08/2023 12:01 PM CDT [facility] MPV RESULTS NOT AVAILABLE 7.4 - 10.4 FL 04/08/2023 12:01 PM CDT [facility] CBC COMMENT NORMAL REFERENCE RANGE NOT ESTABLISHED FOR THE PROPORTIONAL LEUKOCYTE DIFFERENTIAL. 04/08/2023 12:01 PM CDT [facility] NEUTROPHILS % 69.3 % 04/08/2023 12:03 PM CDT [facility] LYMPHOCYTES % 18.7 % 04/08/2023 12:03 PM CDT [facility] MONOCYTES % 5.5 % 04/08/2023 12:03 PM CDT [facility] EOSINOPHILS % 5.7 % 04/08/2023 12:03 PM CDT [facility] BASOPHILS % 0.7 % 04/08/2023 12:03 PM CDT [facility] IMMATURE GRANS % 0.1 % 04/08/20 12:03 PM CDT [facility] NRBC 0.0 % 04/08/2023 12:03 PM CDT [facility] ABS. NEUTROPHILS 6.08 1.60 - 8.30 x10'3/uL 04/08/2023 12:03 PM CDT [facility] ABS. LYMPHOCYTES 1.64 0.80 - 4.70 x10'3/uL 04/08/2023 12:03 PM CDT [facility] ABS. MONOCYTES 0.48 0.00 - 1.50 x10'3/uL 04/08/2023 12:03 PM CDT [facility] ABS. EOSINOPHILS 0.50(H) 0.00 - 0.40 x10'3/uL 04/08/2023 12:03 PM CDT [facility] ABS. BASOPHILS 0.06 0.00 - 0.20 x10'3/uL 04/08/2023 12:03 PM CDT [facility] ABS. IMMATURE GRANULOCYTES 0.01 0.00 - 0.03 x10'3/uL 04/08/2023 12:03 PM CDT [facility] ABS. NUCLEATED RBC'S 0.00 0.00 x10'3/uL 04/08/2023 12:03 PM CDT [facility] PLT MORPH. DECREASED 04/08/2023 12:03 PM CDT [facility] RBC MORPHOLOGY NORMAL 04/08/2023 12:03 PM CDT [facility] 03/24/2023 2:22 PM CDT Roberta Alex MD LABORATORY Final Result [facility] [address] | [place] [address], documented in this encounter Visit Diagnoses Diagnosis Acute ITP ([facility]) Immune thrombocytopenic purpura documented in this encounter Additional Health Concerns Infection Onset Date Last Indicated Resolved Time MRSA 06/05/2021 06/05/2021 documented as of this encounter Care Teams Adjunct Sociology Professor Relationship Specialty Start Date End Date Alejandro Blevins MD PCP - General FAMILY PRACTICE 12/10/19 documented as of this encounter"
--- OUTSIDE RECORDS SUMMARY | 2024-07-11 09:54 | XMS_ITS | Encounter Summary ---
Author Organization [facility] Address [address] [place] [address]. [place], [place] [id number] [place] [address] Care Team Providers Care In Classroom Tutor Name Role Phone Alejandro Blevins MD Primary Care Provider [phone] Encounter Details Date Type Department Care Team [...] file Legal Sex Female 11:30 PM LEAD DATA ENTRY OPERATOR Gender Identity Female 11/10/2021 3:09 PM CDT Sexual Orientation Straight 11/10/2021 3: 09 PM CDT documented as of this encounter Functional Status * RETIRED Are you deaf or do you have serious difficulty hearing Answer Date of Assessment Author Status No 07/30/2020 10:48 PM LEAD DATA ENTRY OPERATOR Acti ve * RETIRED Are you blind or do you have serious difficulty seeing, even when wearing glasses? Answer Date of Assessment Author Status No 07/30/2020 10:46 PM LEAD DATA ENTRY OPERATOR Acti ve * Do you have serious difficulty walking or climbing stairs? Answer Date of Assessment Author Status No 07/30/2020 10:46 PM LEAD DATA ENTRY OPERATOR Nella Le RN Active * Do you have difficulty dressing or bathing? Answer Date of Assessment Author Status No 07/30/2020 10:46 PM LEAD DATA ENTRY OPERATOR Nella Le RN Active * Because of a physical, mental, or emotional condition, do you have difficulty doing errands alone such as visiting a doctor's office or shopping? Answer Date of Assessment Author Status No 07/30/2020 10:46 PM LEAD DATA ENTRY OPERATOR Nella Le RN Active documented as of this encounter Mental Status * Because of a physical, mental, or emotional condition, do you have serious difficulty concentrating, remembering, or making decisions? Answer Entry Date Author Status No 07/30/2020 10:46 PM LEAD DATA ENTRY OPERATOR Nella Le RN Active documented in this encounter Plan of Treatment Upcoming Encounters Date Type Department Care Team (Late st Contact Info) Description 09/25/2024 11:30 AM LEAD DATA ENTRY OPERATOR Appointment [facility] [address] [place] [address] Roberta Alex MD [address] [place] [address] 09/25/2024 11:40 AM LEAD DATA ENTRY OPERATOR Office Visit [facility] [address] [place] [address] Roberta Alex MD [address] [place] [address] documented as of this encounter Visit Diagnoses Not on filedocumented in this encounter Additional Health Concerns Infection Onset Date Last Indicated Resolved Time MRSA 06/05/2021 06/05/2021 documented as of this encounter Care Teams In Classroom Tutor Relationship Specialty Start Date End Date Alejandro Blevins MD PCP - General FAMILY PRACTICE 12/10/19 documented as of this encounter
--- OUTSIDE RECORDS SUMMARY | 2024-07-11 09:54 | XMS_ITS | Encounter Summary ---
Author Organization [facility] Address [address] [place] [address]. [place], [place] [address] [place] [address] Care Team Providers Care Corrugated Fastener Driver Name Role Phone Alejandro Blevins MD Primary Care Provider [phone] Encounter Details Date Type Department Care Team [...] on file Legal Sex Female 11:30 PM OFFICE SUPPORT Gender Identity Female 11/10/2021 3:09 PM CDT Sexual Orientation Straight 11/10/2021 3: 09 PM CDT documented as of this encounter Functional Status * RETIRED Are you deaf or do you have serious difficulty hearing Answer Date of Assessment Author Status No 07/30/2020 10:48 PM OFFICE SUPPORT Acti ve * RETIRED Are you blind or do you have serious difficulty seeing, even when wearing glasses? Answer Date of Assessment Author Status No 07/30/2020 10:46 PM OFFICE SUPPORT Acti ve * Do you have serious difficulty walking or climbing stairs? Answer Date of Assessment Author Status No 07/30/2020 10:46 PM OFFICE SUPPORT Nella Le RN Active * Do you have difficulty dressing or bathing? Answer Date of Assessment Author Status No 07/30/2020 10:46 PM OFFICE SUPPORT Nella Le RN Active * Because of a physical, mental, or emotional condition, do you have difficulty doing errands alone such as visiting a doctor's office or shopping? Answer Date of Assessment Author Status No 07/30/2020 10:46 PM OFFICE SUPPORT Nella Le RN Active documented as of this encounter Mental Status * Because of a physical, mental, or emotional condition, do you have serious difficulty concentrating, remembering, or making decisions? Answer Entry Date Author Status No 07/30/2020 10:46 PM OFFICE SUPPORT Nella Le RN Active documented in this encounter Plan of Treatment Upcoming Encounters Date Type Department Care Team (Late st Contact Info) Description 09/25/2024 11:30 AM OFFICE SUPPORT Appointment [facility] [address] [place] [address] Roberta Alex MD [address] [place] [address] 09/25/2024 11:40 AM OFFICE SUPPORT Office Visit [facility] [address] [place] [address] Roberta Alex MD [address] [place] [address] documented as of this encounter Visit Diagnoses Not on filedocumented in this encounter Additional Health Concerns Infection Onset Date Last Indicated Resolved Time MRSA 06/05/2021 06/05/2021 documented as of this encounter Care Teams Corrugated Fastener Driver Relationship Specialty Start Date End Date Alejandro Blevins MD PCP - General FAMILY PRACTICE 12/10/19 documented as of this encounter
--- OUTSIDE RECORDS SUMMARY | 2024-07-11 09:54 | XMS_ITS | Encounter Summary ---
Author Organization [facility] Address [facility] [place] [address] [place] [address] Care Team Providers Care Underground Miner Name Role Phone Alejandro Blevins MD Primary Care Provider Encounter Details Date Type Department Care Team (Late st Contact Info) Description 04/11/2023 Orders Only [address] [place] [address] Roberta Alex MD [address] [place] [address] Social History Tobacco Use Types Packs/Day Years Used Date Smoking Tobacco: Every Day Cigarettes Smokeless Tobacco: Never Alcohol Use Standard Drinks/Week Comments Not Currently 0 (1 standard drink = 0.6 oz pur e alcohol) Comments No Sex and Gender Information Value Date Recorded Sex Assigned at Not on file Legal Sex Female 11:30 PM RIDE OPERATOR Gender Identity Female 11/10/2021 3:09 PM CDT Sexual Orientation Straight 11/10/2021 3: 09 PM CDT documented as of this encounter Functional Status * RETIRED Are you deaf or do you have serious difficulty hearing Answer Date of Assessment Author Status No 07/30/2020 10:48 PM RIDE OPERATOR Acti ve * RETIRED Are you blind or do you have serious difficulty seeing, even when wearing glasses? Answer Date of Assessment Author Status No 07/30/2020 10:46 PM RIDE OPERATOR Acti ve * Do you have serious difficulty walking or climbing stairs? Answer Date of Assessment Author Status No 07/30/2020 10:46 PM RIDE OPERATOR Bringuet, Nella C, RN Active * Do you have difficulty dressing or bathing? Answer Date of Assessment Author Status No 07/30/2020 10:46 PM RIDE OPERATOR Nella Le RN Active * Because [...] st Contact Info) Description 09/25/2024 11:30 AM RIDE OPERATOR Appointment [facility] [address] [place] [address] Roberta Alex MD [address] [place] [address] 09/25/2024 11:40 AM RIDE OPERATOR Office Visit [facility] [address] [place] [address] Roberta Alex MD [address] [place] [address] documented as of this encounter Results * FERRITIN (04/19/2023 9:35 AM CDT) FERRITIN 31.9 8 - 252 NG/ML 04/19/2023 10:11 AM CDT [facility] 04/19/2023 9:35 AM CDT Roberta Alex MD LABORATORY Final Result [facility] [address] [place] [address], * IRON SAT PANEL (IRON,IBC,%SAT) (04/19/2023 9:35 AM CDT) IRON 55 50 - 170 MCG/DL 04/19/2023 10:24 AM CDT [facility] IRON BINDING CAPACITY 318 250 - 450 MCG/DL 04/19/2023 10:24 AM CDT [facility] IRON SATURATION 17 % 10:24 AM CDT [facility] Comment:REFERENCE RANGE NOT ESTABLISHED 04/19/2023 9:35 AM CDT us Roberta Alex MD LABORATORY Final Result [facility] [address] [employer] [place] [address], * (ABNORMAL) CBC W/DIFF AUTOMATED (04/19/2023 9:35 AM CDT) WBC 7.62 4.00 - 10.80 x10'3/uL 04/19/2023 10:12 AM CDT [facility] RBC 4.53 4.10 - 5.40 x10'6/uL 04/19/2023 10:12 AM CDT [facility] HGB 13.5 12.0 - 16.0 G/DL 04/19/2023 10:12 AM CDT [facility] HCT 41.4 36.0 - 47.0 % 04/19/2023 10:12 AM CDT [facility] MCV 91.4 78.0 - 100.0 FL 04/19/2023 10:12 AM CDT [facility] MCH 29.8 27.0 - 31.0 PG 04/19/2023 10:12 AM CDT [facility] MCHC 32.6(L) 33.0 - 36.0 G/DL 04/19/2023 10:12 AM CDT [facility] RDW 12.4 11.5 - 14.5 % 04/19/2023 10:12 AM CDT [facility] PLT 50(L) 150 - 350 x10'3/uL 04/19/2023 10:12 AM CDT [facility] MPV 14.8(H) 7.4 - 10.4 FL 04/19/2023 10:12 AM CDT [facility] CBC COMMENT NORMAL REFERENCE RANGE NOT ESTABLISHED FOR THE PROPORTIONAL LEUKOCYTE DIFFERENTIAL. 04/19/2023 10:12 AM CDT [facility] NEUTROPHILS % 65.3 % 04/19/2023 10:23 AM CDT [facility] LYMPHOCYTES % 20.6 % 04/19/2023 10:23 AM CDT [facility] MONOCYTES % 4.6 % 04/19/2023 10:23 AM CDT [facility] EOSINOPHILS % 7.9 % 04/19/2023 10:23 AM CDT [facility] BASOPHILS % 1.2 % 04/19/2023 10:23 AM CDT [facility] IMMATURE GRANS % 0.4 % 04/19/20 10:23 AM CDT [facility] NRBC 0.0 % 04/19/2023 10:23 AM CDT [facility] ABS. NEUTROPHILS 4.98 1.60 - 8.30 x10'3/uL 04/19/2023 10:23 AM CDT [facility] ABS. LYMPHOCYTES 1.57 0.80 - 4.70 x10'3/uL 04/19/2023 10:23 AM CDT [facility] ABS. MONOCYTES 0.35 0.00 - 1.50 x10'3/uL 04/19/2023 10:23 AM CDT [facility] ABS. EOSINOPHILS 0.60(H) 0.00 - 0.40 x10'3/uL 04/19/2023 10:23 AM CDT [facility] ABS. BASOPHILS 0.09 0.00 - 0.20 x10'3/uL 04/19/2023 10:23 AM CDT [facility] ABS. IMMATURE GRANULOCYTES 0.03 0.00 - 0.03 x10'3/uL 04/19/2023 10:23 AM CDT [facility] ABS. NUCLEATED RBC'S 0.00 0.00 x10'3/uL 04/19/2023 10:23 AM CDT [facility] PLT MORPH. DECREASED 04/19/2023 10:23 AM CDT [facility] RBC MORPHOLOGY NORMAL 04/19/2023 10:23 AM CDT [facility] 04/19/2023 9:35 AM CDT Roberta Alex MD LABORATORY Final Result [facility] [address] [place] [address], documented in this encounter Visit Diagnoses Diagnosis Chronic ITP (idiopathic thrombocytopenia) (CMS/HCC HHS/HCC)- Primary Immune thrombocytopenic purpura documented in this encounter Additional Health Concerns Infection Onset Date Last Indicated Resolved Time MRSA 06/05/2021 06/05/2021 documented as of this encounter Care Teams Underground Miner Relationship Specialty Start Date End Date Alejandro Blevins MD PCP - General FAMILY PRACTICE 12/10/19 documented as of this encounter
--- OUTSIDE RECORDS SUMMARY | 2024-07-11 09:54 | XMS_ITS | Encounter Summary ---
Author Organization [facility] Address [address] [place] [address]. [place] [address] [place] [address] Care Team Providers Care Flour Tester Name Role Phone Alejandro Blevins MD Primary Care Provider [phone] Reason for Visit * Reason Comments Follow Up Chronic ITP Lab Results Encounter Details Date Type Department Care Team (Late st Contact Info) Description 04/11/2023 8:30 AM CDT Office Visit [address] [place] [address] Carey Pang, APNP [address] [place] [phone] Follow Up (Chronic ITP); Lab Results [...] on file Legal Sex Female 11:30 PM CONTRACTOR GENERAL BUILDING Gender Identity Female 11/10/2021 3:09 PM CDT [...] Assessment Author Status No 07/30/2020 10:48 PM CONTRACTOR GENERAL BUILDING Acti ve * RETIRED Are you blind or do you have serious difficulty seeing, even when wearing glasses? Answer Date of Assessment Author Status No 07/30/2020 10:46 PM CONTRACTOR GENERAL BUILDING Acti ve * Do you have serious [...] care. 1. ITP: Previously followed with [facility] cnc lathe machine operator Dr. Dick Bonilla. - 11/2019- 03/2020: Platelet [...] 30 DAYS SUMAtriptan (IMITREX) 100 MG tablet [id number] (EXCEDRIN MIGRAINE) 250-250-65 MG tablet Take 1 [...] st Contact Info) Description 09/25/2024 11:30 AM CONTRACTOR GENERAL BUILDING Appointment [facility] [address] [place] [address] Roberta Alex MD [address] [place] [address] 09/25/2024 11:40 AM CONTRACTOR GENERAL BUILDING Office Visit [facility] [address] [place] [address] [place] [address] Roberta Alex MD [address] [place] [phone] documented as of this encounter Visit Diagnoses Diagnosis Chronic ITP (idiopathic thrombocytopenia) ([facility]/HCC [facility]/HCC)- Primary Immune thrombocytopenic purpura Iron deficiency anemia secondary to inadequate dietary iron intake documented in this encounter Additional Health Concerns Infection Onset Date Last Indicated Resolved Time MRSA 06/05/2021 06/05/2021 documented as of this encounter Care Teams Flour Tester Relationship Specialty Start Date End Date Alejandro Blevins MD PCP - General FAMILY PRACTICE 12/10/19 documented as of this encounter
--- OUTSIDE RECORDS SUMMARY | 2024-07-11 09:54 | XMS_ITS | Encounter Summary ---
Author Organization [facility] Address [facility] [place] [address] [place] [address] Care Team Providers Care Business Analyst Name Role Phone Alejandro Blevins MD Primary Care Provider [phone] Encounter Details Date Type Department Care Team (Late st Contact Info) Description 04/11/2023 Orders Only [address] [place] [address] Roberta Alex MD [address] [place] [address] Social History Tobacco Use Types Packs/Day Years Used Date Smoking Tobacco: Every Day Cigarettes Smokeless Tobacco: Never Alcohol Use Standard Drinks/Week Comments Not Currently 0 (1 standard drink = 0.6 oz pur e alcohol) Comments No Sex and Gender Information Value Date Recorded Sex Assigned at Not on file Legal Sex Female 11:30 PM BONSAI TENDER Gender Identity Female 11/10/2021 3:09 PM CDT Sexual Orientation Straight 11/10/2021 3: 09 PM CDT documented as of this encounter Functional Status * RETIRED Are you deaf or do you have serious difficulty hearing Answer Date of Assessment Author Status No 07/30/2020 10:48 PM BONSAI TENDER Acti ve * RETIRED Are you blind or do you have serious difficulty seeing, even when wearing glasses? Answer Date of Assessment Author Status No 07/30/2020 10:46 PM BONSAI TENDER Acti ve * Do you have serious difficulty walking or climbing stairs? Answer Date of Assessment Author Status No 07/30/2020 10:46 PM BONSAI TENDER Bringuet, Nella C, RN Active * Do you have difficulty dressing or bathing? Answer Date of Assessment Author Status No 07/30/2020 10:46 PM BONSAI TENDER Nelal Le RN Active * Because of a [...] st Contact Info) Description 09/25/2024 11:30 AM BONSAI TENDER Appointment [facility] [address] [place] [address] Roberta Alex MD [address] [place] [address] 09/25/2024 11:40 AM BONSAI TENDER Office Visit [facility] [address] [place] [address] Roberta Alex MD [address] [place] [address] documented as of this encounter Results * (ABNORMAL) CBC W/DIFF AUTOMATED (04/26/2023 1:13 PM CDT) [facility] WBC 11.78(H) 4.00 - 10.80 x10'3/uL 04/26/2023 2:19 PM CDT [facility] RBC 4.45 4.10 - 5.40 x10'6/uL 04/26/2023 2:19 PM CDT [facility] HGB 13.1 12.0 - 16.0 G/DL 04/26/2023 2:19 PM CDT [facility] HCT 40.4 36.0 - 47.0 % 04/26/2023 2:19 PM CDT [facility] MCV 90.8 78.0 - 100.0 FL 04/26/2023 2:19 PM CDT [facility] MCH 29.4 27.0 - 31.0 PG 04/26/2023 2:19 PM CDT [facility] MCHC 32.4(L) 33.0 - 36.0 G/DL 04/26/2023 2:19 PM CDT [facility] RDW 12.3 11.5 - 14.5 % 04/26/2023 2:19 PM CDT [facility] PLT 44(L) 150 - 350 x10'3/uL 04/26/2023 2:19 PM CDT [facility] MPV 14.6(H) 7.4 - 10.4 FL 04/26/2023 2:19 PM CDT [facility] CBC COMMENT NORMAL REFERENCE RANGE NOT ESTABLISHED FOR THE PROPORTIONAL LEUKOCYTE DIFFERENTIAL. 04/26/2023 2:19 PM CDT [facility] NEUTROPHILS % 78.1 % 04/26/2023 2:20 PM CDT [facility] LYMPHOCYTES % 13.5 % 04/26/2023 2:20 PM CDT [facility] MONOCYTES % 3.9 % 04/26/2023 2:20 PM CDT [facility] EOSINOPHILS % 3.5 % 04/26/2023 2:20 PM CDT [facility] BASOPHILS % 0.7 % 04/26/2023 2:20 PM CDT [facility] IMMATURE GRANS % 0.3 % 04/26/20 2:20 PM CDT [facility] NRBC 0.0 % 04/26/2023 2:20 PM CDT [facility] ABS. NEUTROPHILS 9.20(H) 1.60 - 8.30 x10'3/uL 04/26/2023 2:20 PM CDT [facility] ABS. LYMPHOCYTES 1.59 0.80 - 4.70 x10'3/uL 04/26/2023 2:20 PM CDT [facility] ABS. MONOCYTES 0.46 0.00 - 1.50 x10'3/uL 04/26/2023 2:20 PM CDT [facility] ABS. EOSINOPHILS 0.41(H) 0.00 - 0.40 x10'3/uL 04/26/2023 2:20 PM CDT [facility] ABS. BASOPHILS 0.08 0.00 - 0.20 x10'3/uL 04/26/2023 2:20 PM CDT [facility] ABS. IMMATURE GRANULOCYTES 0.04(H) 0.00 - 0.03 x10'3/uL 04/26/2023 2:20 PM CDT [facility] ABS. NUCLEATED RBC'S 0.00 0.00 x10'3/uL 04/26/2023 2:20 PM CDT [facility] PLT MORPH. DECREASED 04/26/2023 2:20 PM CDT [facility] RBC MORPHOLOGY NORMAL 04/26/2023 2:20 PM CDT [facility] 04/26/2023 1:13 PM CDT Roberta Alex MD LABORATORY Final Result [facility] [address] [address] [phone] documented in this encounter Visit Diagnoses Diagnosis Chronic ITP (idiopathic thrombocytopenia) ([facility])- Primary Immune thrombocytopenic purpura documented in this encounter Additional Health Concerns Infection Onset Date Last Indicated Resolved Time MRSA 06/05/2021 06/05/2021 documented as of this encounter Care Teams Business Analyst Relationship Specialty Start Date End Date Alejandro Blevins MD PCP - General FAMILY PRACTICE 12/10/19 documented as of this encounter
--- OUTSIDE RECORDS SUMMARY | 2024-07-11 09:54 | XMS_ITS | Encounter Summary ---
Author Organization [facility] Address [address] [place] [address]. [place] [address] [place] [address] Care Team Providers Care Sampling Expert Name Role Phone Alejandro Blevins MD Primary Care Provider [phone] Encounter Details Date Type Department Care Team (Latest Contact Info) Description 04/11/2023 8:00 AM CDT - 04/11/2023 11:59 PM CDT Hospital Encounter [facility] [address] [place] [address] [place] [address] Carey Pang, [place]MANUEL [address] [place] [phone] Discharge Disposition: Home or Self Care (Routine Discharge) Social History Tobacco Use Types Packs/Day Years Used Date Smoking Tobacco: Every Day Cigarettes Smokeless Tobacco: Never Alcohol Use Standard Drinks/Week Comments Not Currently 0 (1 standard drink = 0.6 oz pur e alcohol) Comments No Sex and Gender Information Value Date Recorded Sex Assigned at Not on file Legal Sex Female 11:30 PM RELATIONSHIP MGR Gender Identity Female 11/10/2021 3:09 PM CDT Sexual Orientation Straight 11/10/2021 3: 09 PM CDT documented as of this encounter Functional Status * RETIRED Are you deaf or do you have serious difficulty hearing Answer Date of Assessment Author Status No 07/30/2020 10:48 PM RELATIONSHIP MGR Acti ve * RETIRED Are you blind or do you have serious difficulty seeing, even when wearing glasses? Answer Date of Assessment Author Status No 07/30/2020 10:46 PM RELATIONSHIP MGR Acti ve * Do you have serious [...] st Contact Info) Description 09/25/2024 11:30 AM RELATIONSHIP MGR Appointment [facility] [address] [facility] [place] [address] Roberta Alex MD [address] [place] [address] 09/25/2024 11:40 AM RELATIONSHIP MGR Office Visit [facility] [address] [place] [address] Roberta Alex MD [address] [place] [address] documented as of this encounter Procedures Procedure Name Priority Date/Time Associated Diagnosis Comments CBC W/DIFF AUTOMATED Routine 04/11/2023 8:07 AM CDT Chronic ITP (idiopathic thrombocytopenia) ([facility]/HCC [facility]/HCC) documented in this encounter Results * (ABNORMAL) CBC W/DIFF AUTOMATED (04/11/2023 8:07 AM CDT) WBC 9.21 4.00 - 10.80 x10'3/uL 04/11/2023 8:22 AM CDT [facility] RBC 4.45 4.10 - 5.40 x10'6/uL 04/11/2023 8:22 AM CDT [facility] HGB 13.1 12.0 - 16.0 G/DL 04/11/2023 8:22 AM CDT [facility] HCT 41.0 36.0 - 47.0 % 04/11/2023 8:22 AM CDT [facility] MCV 92.1 78.0 - 100.0 FL 04/11/2023 8:22 AM CDT [facility] MCH 29.4 27.0 - 31.0 PG 04/11/2023 8:22 AM CDT [facility] MCHC 32.0(L) 33.0 - 36.0 G/DL 04/11/2023 8:22 AM CDT [facility] RDW 12.2 11.5 - 14.5 % 04/11/2023 8:22 AM CDT [facility] PLT 51(L) 150 - 350 x10'3/uL 04/11/2023 8:22 AM CDT [facility] MPV 14.5(H) 7.4 - 10.4 FL 04/11/2023 8:22 AM CDT [facility] CBC COMMENT NORMAL REFERENCE RANGE NOT ESTABLISHED FOR THE PROPORTIONAL LEUKOCYTE DIFFERENTIAL. 04/11/2023 8:22 AM CDT [facility] NEUTROPHILS % 68.1 % 04/11/2023 8:50 AM CDT [facility] LYMPHOCYTES % 20.0 % 04/11/2023 8:50 AM CDT [facility] MONOCYTES % 4.6 % 04/11/2023 8:50 AM CDT [facility] EOSINOPHILS % 6.1 % 04/11/2023 8:50 AM CDT [facility] BASOPHILS % 0.8 % 04/11/2023 8:50 AM CDT [facility] IMMATURE GRANS % 0.4 % 04/11/20 8:50 AM CDT [facility] NRBC 0.0 % 04/11/2023 8:50 AM CDT [facility] ABS. NEUTROPHILS 6.28 1.60 - 8.30 x10'3/uL 04/11/2023 8:50 AM CDT [facility] ABS. LYMPHOCYTES 1.84 0.80 - 4.70 x10'3/uL 04/11/2023 8:50 AM CDT [facility] ABS. MONOCYTES 0.42 0.00 - 1.50 x10'3/uL 04/11/2023 8:50 AM CDT [facility] ABS. EOSINOPHILS 0.56(H) 0.00 - 0.40 x10'3/uL 04/11/2023 8:50 AM CDT [facility] ABS. BASOPHILS 0.07 0.00 - 0.20 x10'3/uL 04/11/2023 8:50 AM CDT [facility] ABS. IMMATURE GRANULOCYTES 0.04(H) 0.00 - 0.03 x10'3/uL 04/11/2023 8:50 AM CDT [facility] ABS. NUCLEATED RBC'S 0.00 0.00 x10'3/uL 04/11/2023 8:50 AM CDT [facility] PLT MORPH. DECREASED 04/11/2023 8:50 AM CDT [facility] RBC MORPHOLOGY NORMAL 04/11/2023 8:50 AM CDT [facility] 04/11/2023 8:07 AM CDT us Carey Pang APNP LABORATORY Final Res ult [facility] [address] [place] [address], documented in this encounter Visit Diagnoses Diagnosis Chronic ITP (idiopathic thrombocytopenia) (CMS/HCC HHS/HCC) Immune thrombocytopenic purpura documented in this encounter Additional Health Concerns Infection Onset Date Last Indicated Resolved Time MRSA 06/05/2021 06/05/2021 documented as of this encounter Care Teams Sampling Expert Relationship Specialty Start Date End Date Alejandro Blevins MD PCP - General FAMILY PRACTICE 12/10/19 documented as of this encounter
--- OUTSIDE RECORDS SUMMARY | 2024-07-11 09:54 | XMS_ITS | Encounter Summary ---
Author Organization [facility] Address [facility] [address] [place] [address] Care Team Providers Care Acid Bleacher Name Role Phone Alejandro Blevins MD Primary Care Provider [phone] Encounter Details Date Type Department Care Team (Late st Contact Info) Description 04/05/2023 Orders Only [address] [place] [address] Roberta Alex MD [address] [place] [address] Social History Tobacco Use Types Packs/Day Years Used Date Smoking Tobacco: Every Day Cigarettes Smokeless Tobacco: Never Alcohol Use Standard Drinks/Week Comments Not Currently 0 (1 standard drink = 0.6 oz pur e alcohol) Comments No Sex and Gender Information Value Date Recorded Sex Assigned at Not on file Legal Sex Female 11:30 PM SHOE REPAIR COBBLER Gender Identity Female 11/10/2021 3:09 PM CDT Sexual Orientation Straight 11/10/2021 3: 09 PM CDT documented as of this encounter Functional Status * RETIRED Are you deaf or do you have serious difficulty hearing Answer Date of Assessment Author Status No 07/30/2020 10:48 PM SHOE REPAIR COBBLER Acti ve * RETIRED Are you blind or do you have serious difficulty seeing, even when wearing glasses? Answer Date of Assessment Author Status No 07/30/2020 10:46 PM SHOE REPAIR COBBLER Acti ve * Do you have serious difficulty walking or climbing stairs? Answer Date of Assessment Author Status No 07/30/2020 10:46 PM SHOE REPAIR COBBLER Bringuet, Nella C, RN Active * Do you have difficulty dressing or bathing? Answer Date of Assessment Author Status No 07/30/2020 10:46 PM SHOE REPAIR COBBLER Nella Le RN Active * Because of [...] st Contact Info) Description 09/25/2024 11:30 AM SHOE REPAIR COBBLER Appointment [facility] [address] [place] [address] Roberta Alex MD [address] [place] [address] 09/25/2024 11:40 AM SHOE REPAIR COBBLER Office [facility] [address] [place] [address] Roberta Alex MD [address] [place] [address] documented as of this encounter Visit Diagnoses Diagnosis Chronic ITP (idiopathic thrombocytopenia) ([facility])- Primary Immune thrombocytopenic purpura documented in this encounter Additional Health Concerns Infection Onset Date Last Indicated Resolved Time MRSA 06/05/2021 06/05/2021 documented as of this encounter Care Teams Acid Bleacher Relationship Specialty Start Date End Date Alejandro Blevins MD PCP - General FAMILY PRACTICE 12/10/19 documented as of this encounter
--- OUTSIDE RECORDS SUMMARY | 2024-07-11 09:54 | XMS_ITS | Encounter Summary ---
Author Organization [facility] Address [facility] [place] [address] [place] [address] Care Team Providers Care Audiovisual Technician Name Role Phone Alejandro Blevins MD Primary Care Provider Encounter Details Date Type Department Care Team (Late st Contact Info) Description 04/11/2023 Orders Only [address] [place] [address] Roberta Alex MD [address] [place] [address] Social History Tobacco Use Types Packs/Day Years Used Date Smoking Tobacco: Every Day Cigarettes Smokeless Tobacco: Never Alcohol Use Standard Drinks/Week Comments Not Currently 0 (1 standard drink = 0.6 oz pur e alcohol) Comments No Sex and Gender Information Value Date Recorded Sex Assigned at Not on file Legal Sex Female 11:30 PM TACKING MACHINE OPERATOR Gender Identity Female 11/10/2021 3:09 PM CDT Sexual Orientation Straight 11/10/2021 3: 09 PM CDT documented as of this encounter Functional Status * RETIRED Are you deaf or do you have serious difficulty hearing Answer Date of Assessment Author Status No 07/30/2020 10:48 PM TACKING MACHINE OPERATOR Acti ve * RETIRED Are you blind or do you have serious difficulty seeing, even when wearing glasses? Answer Date of Assessment Author Status No 07/30/2020 10:46 PM TACKING MACHINE OPERATOR Acti ve * Do you have serious difficulty walking or climbing stairs? Answer Date of Assessment Author Status No 07/30/2020 10:46 PM TACKING MACHINE OPERATOR Bringuet, Nella C, RN Active * Do you have difficulty dressing or bathing? Answer Date of Assessment Author Status No 07/30/2020 10:46 PM TACKING MACHINE OPERATOR Nella Le RN Active * [...] st Contact Info) Description 09/25/2024 11:30 AM TACKING MACHINE OPERATOR Appointment [facility] [address] [place] [address] Roberta Alex MD [address] [place] [address] 09/25/2024 11:40 AM TACKING MACHINE OPERATOR Office Visit [facility] [address] [place] [address] Roberta Alex MD [address] [place] [address] documented as of this encounter Results * (ABNORMAL) CBC W/DIFF AUTOMATED (05/03/2023 2:19 PM CDT) [facility] WBC 8.09 4.00 - 10.80 x10'3/uL 05/03/2023 5:48 PM CDT [facility] RBC 4.51 4.10 - 5.40 x10'6/uL 05/03/2023 5:48 PM CDT [facility] HGB 13.4 12.0 - 16.0 G/DL 05/03/2023 5:48 PM CDT [facility] HCT 41.1 36.0 - 47.0 % 05/03/2023 5:48 PM CDT [facility] MCV 91.1 78.0 - 100.0 FL 05/03/2023 5:48 PM CDT [facility] MCH 29.7 27.0 - 31.0 PG 05/03/2023 5:48 PM CDT [facility] MCHC 32.6(L) 33.0 - 36.0 G/DL 05/03/2023 5:48 PM CDT [facility] RDW 12.2 11.5 - 14.5 % 05/03/2023 5:48 PM CDT [facility] PLT 59(L) 150 - 350 x10'3/uL 05/03/2023 5:48 PM CDT [facility] MPV 14.1(H) 7.4 - 10.4 FL 05/03/2023 5:48 PM CDT [facility] CBC COMMENT NORMAL REFERENCE RANGE NOT ESTABLISHED FOR THE PROPORTIONAL LEUKOCYTE DIFFERENTIAL. 05/03/2023 5:48 PM CDT [facility] NEUTROPHILS % 66.9 % 05/03/2023 6:32 PM CDT [facility] LYMPHOCYTES % 20.0 % 05/03/2023 6:32 PM CDT [facility] MONOCYTES % 5.7 % 05/03/2023 6:32 PM CDT [facility] EOSINOPHILS % 6.1 % 05/03/2023 6:32 PM CDT [facility] BASOPHILS % 0.9 % 05/03/2023 6:32 PM CDT [facility] IMMATURE GRANS % 0.4 % 05/03/20 6:32 PM CDT [facility] NRBC 0.0 % 05/03/2023 6:32 PM CDT [facility] ABS. NEUTROPHILS 5.42 1.60 - 8.30 x10'3/uL 05/03/2023 6:32 PM CDT [facility] ABS. LYMPHOCYTES 1.62 0.80 - 4.70 x10'3/uL 05/03/2023 6:32 PM CDT [facility] ABS. MONOCYTES 0.46 0.00 - 1.50 x10'3/uL 05/03/2023 6:32 PM CDT [facility] ABS. EOSINOPHILS 0.49(H) 0.00 - 0.40 x10'3/uL 05/03/2023 6:32 PM CDT [facility] ABS. BASOPHILS 0.07 0.00 - 0.20 x10'3/uL 05/03/2023 6:32 PM CDT [facility] ABS. IMMATURE GRANULOCYTES 0.03 0.00 - 0.03 x10'3/uL 05/03/2023 6:32 PM CDT [facility] ABS. NUCLEATED RBC'S 0.00 0.00 x10'3/uL 05/03/2023 6:32 PM CDT [facility] PLT MORPH. DECREASED 05/03/2023 6:32 PM CDT [facility] Comment:GIANT PLATELETS RBC MORPHOLOGY NORMAL 05/03/2023 6:32 PM CDT [facility] 05/03/2023 2:19 PM CDT Roberta Alex MD LABORATORY Final Result [facility] [address] [place] [address], documented in this encounter Visit Diagnoses Diagnosis Chronic ITP (idiopathic thrombocytopenia) ([facility])- Primary Immune thrombocytopenic purpura documented in this encounter Additional Health Concerns Infection Onset Date Last Indicated Resolved Time MRSA 06/05/2021 06/05/2021 documented as of this encounter Care Teams Audiovisual Technician Relationship Specialty Start Date End Date Alejandro Blevins MD PCP - General FAMILY PRACTICE 12/10/19 documented as of this encounter
--- OUTSIDE RECORDS SUMMARY | 2024-07-11 09:55 | XMS_ITS | Encounter Summary ---
Author Organization [facility] Address [address] [place] [address]. [place], [place] [address] [place] [address] Care Team Providers Care Ultrasonic Tester Name Role Phone Alejandro Blevins MD Primary Care Provider [phone] Encounter Details Date Type Department Care Team [...] file Legal Sex Female 11:30 PM SALES SYSTEMS ENGINEER Gender Identity Female 11/10/2021 3:09 PM [...] Author Status No 07/30/2020 10:48 PM SALES SYSTEMS ENGINEER Acti ve * RETIRED Are you blind or do you have serious difficulty seeing, even when wearing glasses? Answer Date of Assessment Author Status No 07/30/2020 10:46 PM SALES SYSTEMS ENGINEER Acti ve * Do you have serious difficulty walking or climbing stairs? Answer Date of Assessment Author Status No 07/30/2020 10:46 PM SALES SYSTEMS ENGINEER Nella Le RN Active * Do you have difficulty dressing or bathing? Answer Date of Assessment Author Status No 07/30/2020 10:46 PM SALES SYSTEMS ENGINEER Nella Le RN Active * Because of a physical, mental, or emotional condition, do you have difficulty doing errands alone such as visiting a doctor's office or shopping? Answer Date of Assessment Author Status No 07/30/2020 10:46 PM SALES SYSTEMS ENGINEER Nella Le RN Active documented as of this encounter Mental Status * Because of a physical, mental, or emotional condition, do you have serious difficulty concentrating, remembering, or making decisions? Answer Entry Date Author Status No 07/30/2020 10:46 PM SALES SYSTEMS ENGINEER Nella Le RN Active documented in this encounter Plan of Treatment Upcoming Encounters Date Type Department Care Team (Late st Contact Info) Description 09/25/2024 11:30 AM SALES SYSTEMS ENGINEER Appointment [facility] [address] [place] [address] Roberta Alex MD [address] [place] [id number] 09/25/2024 11:40 AM SALES SYSTEMS ENGINEER Office Visit [facility] [address] [place] [address] Roberta Alex MD [address] [place] [address] documented as of this encounter Visit Diagnoses Not on filedocumented in this encounter Additional Health Concerns Infection Onset Date Last Indicated Resolved Time MRSA 06/05/2021 06/05/2021 documented as of this encounter Care Teams Ultrasonic Tester Relationship Specialty Start Date End Date Alejandro Blevins MD PCP - General FAMILY PRACTICE 12/10/19 documented as of this encounter
--- OUTSIDE RECORDS SUMMARY | 2024-07-11 09:55 | XMS_ITS | Encounter Summary ---
Author Organization [facility] Address [address] [place] [address]. [place] [address] [place] [address] Care Team Providers Care Data Control Clerk Name Role Phone Alejandro Blevins MD Primary Care Provider [phone] Reason for Visit * Reason Comments Infusion Therapy * Treatment/Therapy Plan Authorization (Routine) - Closed Specialty Diagnoses / Procedures Referred By Contac t Referred To Contact Diagnoses Iron deficiency anemia due to chronic blood loss Procedures Roberta Evans MD [address] [place] [address] Phone: tel: fax: [facility] [place] [place] [address] Phone: tel: Referral ID Status Reason Start Date Expiration Date Visits Re quested Visits Authorized [id number] Closed 12/07/2022 12/08/2023 1 1 Encounter Details Date Type Department Care Team (Latest Contact Info) Description 12/23/2022 11:00 AM CDT - 12/23/2022 11:59 PM T Hospital Encounter [facility] [place] [place] [address] Roberta Alex MD [address] [place], [place] [address] Infusion Therapy Discharge Disposition: Home or Self [...] on file Legal Sex Female 11:30 PM WHEAT COMBINE DRIVER Gender Identity Female 11/10/2021 3:09 PM [...] Assessment Author Status No 07/30/2020 10:48 PM WHEAT COMBINE DRIVER Acti ve * RETIRED Are you blind or do you have serious difficulty seeing, even when wearing glasses? Answer Date of Assessment Author Status No 07/30/2020 10:46 PM WHEAT COMBINE DRIVER Acti ve * Do you have [...] Date Author Status No 07/30/2020 10:46 PM WHEAT COMBINE DRIVER Nella Le RN Active documented in [...] st Contact Info) Description 09/25/2024 11:30 AM WHEAT COMBINE DRIVER Appointment [facility] [address] [place] [address] Roberta Alex MD [address] [place] [address] 09/25/2024 11:40 AM WHEAT COMBINE DRIVER Office Visit [facility] [address] [place] [address] Roberta Alex MD [address] [place] [address] documented as of this encounter Visit Diagnoses [...] documented as of this encounter Care Teams Data Control Clerk Relationship Specialty Start Date End Date Alejandro Blevins MD PCP - General FAMILY PRACTICE 12/10/19 documented as of this encounter
--- OUTSIDE RECORDS SUMMARY | 2024-07-11 09:55 | XMS_ITS | Encounter Summary ---
Author Organization [facility] Address [address] [place] [address]. [place] [address] [place] [address] Care Team Providers Care Computed Tomography Scanner Operator Name Role Phone Alejandro Blevins MD Primary Care Provider [phone] Reason for Visit * Reason Onset Date Comments Appointment Reminder 12/30/2022 Encounter Details Date Type Department Care Team ([facility] st Contact Info) Description 12/30/[address] [place] [address] Carey Pang, EMANUEL [address] [place] [phone] Appointment Reminder Social History Tobacco Use Types Packs/Day Years Used Date Smoking Tobacco: Every Day Cigarettes Smokeless Tobacco: Never Alcohol Use Standard Drinks/Week Comments Not Currently 0 (1 standard drink = 0.6 oz pur e alcohol) Comments No Sex and Gender Information Value Date Recorded Sex Assigned at Not on file Legal Sex Female 11:30 PM HOOKER ON Gender Identity Female 11/10/2021 3:09 PM CDT [...] Assessment Author Status No 07/30/2020 10:48 PM HOOKER ON Acti ve * RETIRED Are you blind or do you have serious difficulty seeing, even when wearing glasses? Answer Date of Assessment Author Status No 07/30/2020 10:46 PM HOOKER ON Acti ve * Do you have serious [...] st Contact Info) Description 09/25/2024 11:30 AM HOOKER ON Appointment [facility] [address] [place] [address] Roberta Alex MD [address] [place] [address] 09/25/2024 11:40 AM HOOKER ON Office Visit [facility] [address] [place] [address] Roberta Alex MD [address] [place] [address] documented as of this encounter Visit Diagnoses Not on filedocumented in this encounter Additional Health Concerns Infection Onset Date Last Indicated Resolved Time MRSA 06/05/2021 06/05/2021 documented as of this encounter Care Teams Computed Tomography Scanner Operator Relationship Specialty Start Date End Date Alejandro Blevins MD PCP - General FAMILY PRACTICE 12/10/19 documented as of this encounter
--- OUTSIDE RECORDS SUMMARY | 2024-07-11 09:55 | XMS_ITS | Encounter Summary ---
Author Organization [facility] Address [facility], [id number] [facility] [place] [address] [place] [address] Care Team Providers Care Fisher Pound Net Or Trap Name Role Phone Alejandro Blevins MD Primary Care Provider [phone] Reason for Visit * Reason Comments Injection * Treatment/Therapy Plan Authorization (Routine) - Closed Specialty Diagnoses / Procedures Referred By Contac t Referred To Contact Diagnoses Chronic ITP (idiopathic thrombocytopenia) ([facility]) Thrombocytopenia ([facility]) Procedures ITP RomiPLOStim Roberta Alex MD [address] [place] [address] Phone: tel: fax: [facility] [place] [place] [address] Phone: tel: Referral ID Status Reason Start Date Expiration Date Visits Re quested Visits Authorized [id number] Closed 12/23/2022 03/25/2023 1 1 Encounter Details Date Type Department Care Team (Latest Contact Info) Description 01/03/2023 12:48 PM CDT - 01/03/2023 11:59 PM CDT Hospital Encounter [facility] [place] [address] Roberta Alex MD [address] [place] [address] Injection Discharge Disposition: Home or [...] on file Legal Sex Female 11:30 PM UMBRELLA TIPPER Gender Identity Female 11/10/2021 3:09 PM CDT [...] Assessment Author Status No 07/30/2020 10:48 PM UMBRELLA TIPPER Acti ve * RETIRED Are you blind or do you have serious difficulty seeing, even when wearing glasses? Answer Date of Assessment Author Status No 07/30/2020 10:46 PM UMBRELLA TIPPER Acti ve * Do you have serious difficulty walking or climbing stairs? Answer Date of Assessment Author Status No 07/30/2020 10:46 PM UMBRELLA TIPPER Nella Le RN Active * Do you [...] st Contact Info) Description 09/25/2024 11:30 AM UMBRELLA TIPPER Appointment [facility] [address] [place] [address] Roberta Alex MD [address] [place] [address] 09/25/2024 11:40 AM UMBRELLA TIPPER Office Visit [facility] [address] [place] [address] Roberta Alex MD [address] [place] [address] documented as of this encounter Visit Diagnoses [...] documented as of this encounter Care Teams Fisher Pound Net Or Trap Relationship Specialty Start Date End Date Alejandro Blevins MD PCP - General FAMILY PRACTICE 12/10/19 documented as of this encounter
--- OUTSIDE RECORDS SUMMARY | 2024-07-11 09:55 | XMS_ITS | Encounter Summary ---
Author Organization [facility] Address [address] [place] [address]. [place] [address] [place] [address] Care Team Providers Care Household Refrigerator Mechanic Name Role Phone Alejandro Blevins MD Primary Care Provider [phone] Encounter Details Date Type Department Care Team (Latest Contact Info) Description 01/10/2023 12:20 PM CDT - 01/10/2023 12:24 PM CDT Hospital Encounter [address] [place] [address] Roberta Alex MD [address] [place] [address] Discharge Disposition: Home or Self [...] on file Legal Sex Female 11:30 PM HEAD BELLHOP CAPTAIN Gender Identity Female 11/10/2021 3:09 PM CDT [...] Assessment Author Status No 07/30/2020 10:48 PM HEAD BELLHOP CAPTAIN Acti ve * RETIRED Are you blind or do you have serious difficulty seeing, even when wearing glasses? Answer Date of Assessment Author Status No 07/30/2020 10:46 PM HEAD BELLHOP CAPTAIN Acti ve * Do you have serious [...] st Contact Info) Description 09/25/2024 11:30 AM HEAD BELLHOP CAPTAIN Appointment [facility] [place] [address] Roberta Alex MD [address] [place] [address] 09/25/2024 11:40 AM HEAD BELLHOP CAPTAIN Office Visit [facility] [place] [address] [address] Roberta Alex MD [address] [place] [address] documented as of this encounter Procedures Procedure Name Priority Date/Time Associated Diagnosis Comments CBC W/DIFF AUTOMATED Routine 01/10/2023 12:39 PM CDT Acute ITP (CMS/HCC HHS/HCC) documented in this encounter Results * (ABNORMAL) CBC W/DIFF AUTOMATED (01/10/2023 12:39 PM CDT) WBC 9.36 4.00 - 10.80 x10'3/uL 01/10/2023 12:47 PM CDT [facility] RBC 4.88 4.10 - 5.40 x10'6/uL 01/10/2023 12:47 PM CDT [facility] HGB 14.2 12.0 - 16.0 G/DL 01/10/2023 12:47 PM CDT [facility] HCT 43.8 36.0 - 47.0 % 01/10/2023 12:47 PM CDT [facility] MCV 89.8 78.0 - 100.0 FL 01/10/2023 12:47 PM CDT [facility] MCH 29.1 27.0 - 31.0 PG 01/10/2023 12:47 PM CDT [facility] MCHC 32.4(L) 33.0 - 36.0 G/DL 01/10/2023 12:47 PM CDT [facility] RDW 12.7 11.5 - 14.5 % 01/10/2023 12:47 PM CDT [facility] PLT 146(L) 150 - 350 x10'3/uL 01/10/2023 12:47 PM CDT [facility] MPV 13.6(H) 7.4 - 10.4 FL 01/10/2023 12:47 PM CDT [facility] CBC COMMENT NORMAL REFERENCE RANGE NOT ESTABLISHED FOR THE PROPORTIONAL LEUKOCYTE DIFFERENTIAL. 01/10/2023 12:47 PM CDT [facility] NEUTROPHILS % 65.3 % 01/10/2023 12:47 PM CDT [facility] LYMPHOCYTES % 20.9 % 01/10/2023 12:47 PM CDT [facility] MONOCYTES % 6.5 % 01/10/2023 12:47 PM CDT [facility] EOSINOPHILS % 6.3 % 01/10/2023 12:47 PM CDT [facility] BASOPHILS % 0.7 % 01/10/2023 12:47 PM CDT [facility] IMMATURE GRANS % 0.3 % 01/11/20 12:47 PM CDT [facility] NRBC 0.0 % 01/10/2023 12:47 PM CDT [facility] ABS. NEUTROPHILS 6.10 1.60 - 8.30 x10'3/uL 01/10/2023 12:47 PM CDT [facility] ABS. LYMPHOCYTES 1.96 0.80 - 4.70 x10'3/uL 01/10/2023 12:47 PM CDT [facility] ABS. MONOCYTES 0.61 0.00 - 1.50 x10'3/uL 01/10/2023 12:47 PM CDT [facility] ABS. EOSINOPHILS 0.59(H) 0.00 - 0.40 x10'3/uL 01/10/2023 12:47 PM CDT [facility] ABS. BASOPHILS 0.07 0.00 - 0.20 x10'3/uL 01/10/2023 12:47 PM CDT [facility] ABS. IMMATURE GRANULOCYTES 0.03 0.00 - 0.03 x10'3/uL 01/10/2023 12:47 PM CDT [facility] ABS. NUCLEATED RBC'S 0.00 0.00 x10'3/uL 01/10/2023 12:47 PM CDT [facility] 01/10/2023 12:3 9 PM CDT us Roberta Alex MD LABORATORY Final Result [facility] [address] [place] [address], documented in this encounter Visit Diagnoses Diagnosis Acute ITP (CMS/HCC HHS/HCC) Immune thrombocytopenic purpura documented in this encounter Additional Health Concerns Infection Onset Date Last Indicated Resolved Time MRSA 06/05/2021 06/05/2021 documented as of this encounter Care Teams Household Refrigerator Mechanic Relationship Specialty Start Date End Date Alejandro Blevins MD PCP - General FAMILY PRACTICE 12/10/19 documented as of this encounter
--- OUTSIDE RECORDS SUMMARY | 2024-07-11 09:55 | XMS_ITS | Encounter Summary ---
Author Organization [facility] Address [facility] [place] [address] [place] [address] Care Team Providers Care Unit Control Clerk Name Role Phone Alejandro Blevins MD Primary Care Provider [phone] Encounter Details Date Type Department Care Team (Late st Contact Info) Description 01/21/2023 Orders Only [address] [place] [address] Roberta Alex MD [address] [place] [address] Social History Tobacco Use Types Packs/Day Years Used Date Smoking Tobacco: Every Day Cigarettes Smokeless Tobacco: Never Alcohol Use Standard Drinks/Week Comments Not Currently 0 (1 standard drink = 0.6 oz pur e alcohol) Comments No Sex and Gender Information Value Date Recorded Sex Assigned at Not on file Legal Sex Female 11:30 PM CLINICAL DATA ANALYST Gender Identity Female 11/10/2021 3:09 PM [...] Author Status No 07/30/2020 10:48 PM CLINICAL DATA ANALYST Acti ve * RETIRED Are you blind or do you have serious difficulty seeing, even when wearing glasses? Answer Date of Assessment Author Status No 07/30/2020 10:46 PM CLINICAL DATA ANALYST Acti ve * Do you have [...] Contact Info) Description 09/25/2024 11:30 AM CLINICAL DATA ANALYST Appointment [facility] [address] [place] [address] Roberta Alex MD [address] [place] [address] 09/25/2024 11:40 AM CLINICAL DATA ANALYST Office Visit [facility] [address] [place] [address] Roberta Alex MD [address] [place] [address] documented as of this encounter Visit Diagnoses Diagnosis Abnormal CT scan- Primary Other nonspecific (abnormal) findings on radiological and other examinations of body structure documented in this encounter Additional Health Concerns Infection Onset Date Last Indicated Resolved Time MRSA 06/05/2021 06/05/2021 documented as of this encounter Care Teams Unit Control Clerk Relationship Specialty Start Date End Date Alejandro Blevins MD PCP - General FAMILY PRACTICE 12/10/19 documented as of this encounter
--- OUTSIDE RECORDS SUMMARY | 2024-07-11 09:55 | XMS_ITS | Encounter Summary ---
Author Organization [facility] Address [address] [place] [address]. [place] [address] [place] [address] Care Team Providers Care Hand Ornament Maker Name Role Phone Alejandro Blevins MD Primary Care Provider Encounter Details Date Type Department Care Team (Latest Contact Info) Description 01/20/2023 1:50 AM CDT - 01/20/2023 11:59 PM CDT Hospital Encounter [address] [place] [address] Roberta Alex MD [address] [place] [address] Discharge Disposition: Home or Self Care (Routine Discharge) Social History Tobacco Use Types Packs/Day Years Used Date Smoking Tobacco: Every Day Cigarettes Smokeless Tobacco: Never Alcohol Use Standard Drinks/Week Comments Not Currently 0 (1 standard drink = 0.6 oz pur e alcohol) Comments No Sex and Gender Information Value Date Recorded Sex Assigned at Not on file Legal Sex Female 11:30 PM FLIGHT NURSE Gender Identity Female 11/10/2021 3:09 PM [...] Assessment Author Status No 07/30/2020 10:48 PM FLIGHT NURSE Acti ve * RETIRED Are you blind or do you have serious difficulty seeing, even when wearing glasses? Answer Date of Assessment Author Status No 07/30/2020 10:46 PM FLIGHT NURSE Acti ve * Do you have [...] st Contact Info) Description 09/25/2024 11:30 AM FLIGHT NURSE Appointment [facility] [place] [address] [address] Roberta Alex MD [address] [place] [address] 09/25/2024 11:40 AM FLIGHT NURSE Office Visit [facility] [place] [address] [address] Roberta Alex MD [address] [place] [address] documented as of this encounter Procedures Procedure Name Priority Date/Time Associated Diagnosis Comments CBC W/DIFF AUTOMATED Routine 01/20/2023 1:53 PM CDT Acute ITP (CMS/HCC HHS/HCC) documented in this encounter Results * (ABNORMAL) CBC W/DIFF AUTOMATED (01/20/2023 1:53 PM CDT) WBC 13.84(H) 4.00 - 10.80 x10'3/uL 01/20/2023 1:59 PM CDT [facility] RBC 4.70 4.10 - 5.40 x10'6/uL 01/20/2023 1:59 PM CDT [facility] HGB 13.7 12.0 - 16.0 G/DL 01/20/2023 1:59 PM CDT [facility] HCT 42.6 36.0 - 47.0 % 01/20/2023 1:59 PM CDT [facility] MCV 90.6 78.0 - 100.0 FL 01/20/2023 1:59 PM CDT [facility] MCH 29.1 27.0 - 31.0 PG 01/20/2023 1:59 PM CDT [facility] MCHC 32.2(L) 33.0 - 36.0 G/DL 01/20/2023 1:59 PM CDT [facility] RDW 12.5 11.5 - 14.5 % 01/20/2023 1:59 PM CDT [facility] PLT 254 150 - 350 x10'3/uL 01/20/2023 1:59 PM CDT [facility] MPV 12.7(H) 7.4 - 10.4 FL 01/20/2023 1:59 PM CDT [facility] CBC COMMENT NORMAL REFERENCE RANGE NOT ESTABLISHED FOR THE PROPORTIONAL LEUKOCYTE DIFFERENTIAL. 01/20/2023 1:59 PM CDT [facility] NEUTROPHILS % 79.4 % 01/20/2023 1:59 PM CDT [facility] LYMPHOCYTES % 12.6 % 01/20/2023 1:59 PM CDT [facility] MONOCYTES % 3.8 % 01/20/2023 1:59 PM CDT [facility] EOSINOPHILS % 3.2 % 01/20/2023 1:59 PM CDT [facility] BASOPHILS % 0.7 % 01/20/2023 1:59 PM CDT [facility] IMMATURE GRANS % 0.3 % 01/21/20 1:59 PM CDT [facility] NRBC 0.0 % 01/20/2023 1:59 PM CDT [facility] ABS. NEUTROPHILS 11.00(H) 1.60 - 8.30 x10'3/uL 01/20/2023 1:59 PM CDT [facility] ABS. LYMPHOCYTES 1.74 0.80 - 4.70 x10'3/uL 01/20/2023 1:59 PM CDT [facility] ABS. MONOCYTES 0.53 0.00 - 1.50 x10'3/uL 01/20/2023 1:59 PM CDT [facility] ABS. EOSINOPHILS 0.44(H) 0.00 - 0.40 x10'3/uL 01/20/2023 1:59 PM CDT [facility] ABS. BASOPHILS 0.09 0.00 - 0.20 x10'3/uL 01/20/2023 1:59 PM CDT [facility] ABS. IMMATURE GRANULOCYTES 0.04(H) 0.00 - 0.03 x10'3/uL 01/20/2023 1:59 PM CDT [facility] ABS. 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
--- OUTSIDE RECORDS SUMMARY | 2024-07-11 09:55 | XMS_ITS | Encounter Summary ---
Author Organization [facility] Address [address] [place] [address]. [place], [place] [id number] [place] [address] Care Team Providers Care Group Work Program Aide Name Role Phone Alejandro Blevins MD Primary Care Provider [phone] Encounter Details Date Type Department Care Team [...] on file Legal Sex Female 11:30 PM LOGISTICS RESEARCH ENGINEER Gender Identity Female 11/10/2021 3:09 PM [...] Assessment Author Status No 07/30/2020 10:48 PM LOGISTICS RESEARCH ENGINEER Acti ve * RETIRED Are you blind or do you have serious difficulty seeing, even when wearing glasses? Answer Date of Assessment Author Status No 07/30/2020 10:46 PM LOGISTICS RESEARCH ENGINEER Acti ve * Do you have serious difficulty walking or climbing stairs? Answer Date of Assessment Author Status No 07/30/2020 10:46 PM LOGISTICS RESEARCH ENGINEER Nella Le RN Active * Do you have difficulty dressing or bathing? Answer Date of Assessment Author Status No 07/30/2020 10:46 PM LOGISTICS RESEARCH ENGINEER Nella Le RN Active * Because of a physical, mental, or emotional condition, do you have difficulty doing errands alone such as visiting a doctor's office or shopping? Answer Date of Assessment Author Status No 07/30/2020 10:46 PM LOGISTICS RESEARCH ENGINEER Nella eL RN Active documented as of this encounter Mental Status * Because of a physical, mental, or emotional condition, do you have serious difficulty concentrating, remembering, or making decisions? Answer Entry Date Author Status No 07/30/2020 10:46 PM LOGISTICS RESEARCH ENGINEER Nella Le RN Active documented in this encounter Plan of Treatment Upcoming Encounters Date Type Department Care Team (Late st Contact Info) Description 09/25/2024 11:30 AM LOGISTICS RESEARCH ENGINEER Appointment [facility] [address] [place] [address] Roberta Alex MD [address] [place] [id number] 09/25/2024 11:40 AM LOGISTICS RESEARCH ENGINEER Office Visit [facility] [address] [place] [address] Roberta Alex MD [address] [place] [id number] documented as of this encounter Visit Diagnoses Not on filedocumented in this encounter Additional Health Concerns Infection Onset Date Last Indicated Resolved Time MRSA 06/05/2021 06/05/2021 documented as of this encounter Care Teams Group Work Program Aide Relationship Specialty Start Date End Date Alejandro Blevins MD PCP - General FAMILY PRACTICE 12/10/19 documented as of this encounter
--- OUTSIDE RECORDS SUMMARY | 2024-07-11 09:55 | XMS_ITS | Encounter Summary ---
Author Organization [facility] Address [address] [place] [address]. [place] [address] [place] [address] Care Team Providers Care Ornamental Bronze Worker Name Role Phone Alejandro Blevins MD Primary Care Provider [phone] Encounter Details Date Type Department Care Team (Latest Contact Info) Description 01/03/2023 12:47 PM CDT Hospital Encounter [facility] [address] [place] [address] Carey Pang, APNP [address] [place] [phone] Discharge Disposition: Home or Self Care (Routine Discharge) Social History Tobacco Use Types Packs/Day Years Used Date Smoking Tobacco: Every Day Cigarettes Smokeless Tobacco: Never Alcohol Use Standard Drinks/Week Comments Not Currently 0 (1 standard drink = 0.6 oz pur e alcohol) Comments No Sex and Gender Information Value Date Recorded Sex Assigned at Not on file Legal Sex Female 11:30 PM ENVIRONMENTAL GEOLOGIST Gender Identity Female 11/10/2021 3:09 PM CDT [...] Assessment Author Status No 07/30/2020 10:48 PM ENVIRONMENTAL GEOLOGIST Acti ve * RETIRED Are you blind or do you have serious difficulty seeing, even when wearing glasses? Answer Date of Assessment Author Status No 07/30/2020 10:46 PM ENVIRONMENTAL GEOLOGIST Acti ve * Do you have serious difficulty walking or climbing stairs? Answer Date of Assessment Author Status No 07/30/2020 10:46 PM Nella Leonardo RN Active * Do you have difficulty dressing or bathing? Answer Date of Assessment Author Status No 07/30/2020 10:46 PM Nella Loenardo RN Active * Because of a physical, [...] st Contact Info) Description 09/25/2024 11:30 AM ENVIRONMENTAL GEOLOGIST Appointment [facility] [place] [address] Roberta Alex MD [address] [place] [address] 09/25/2024 11:40 AM ENVIRONMENTAL GEOLOGIST Office Visit [facility] [place] [address] [address] Roberta Alex MD [address] [place] [address] documented as of this encounter Procedures Procedure Name Priority Date/Time Associated Diagnosis Comments CBC W/DIFF AUTOMATED Routine 01/03/2023 12:55 PM CDT Thrombocytopenia documented in this encounter Results * (ABNORMAL) CBC W/DIFF AUTOMATED (01/03/2023 12:55 PM CDT) WBC 10.60 4.00 - 10.80 x10'3/uL 01/03/2023 1:54 PM CDT [facility] RBC 4.97 4.10 - 5.40 x10'6/uL 01/03/2023 1:54 PM CDT [facility] HGB 14.4 12.0 - 16.0 G/DL 01/03/2023 1:54 PM CDT [facility] HCT 44.5 36.0 - 47.0 % 01/03/2023 1:54 PM CDT [facility] MCV 89.5 78.0 - 100.0 FL 01/03/2023 1:54 PM CDT [facility] MCH 29.0 27.0 - 31.0 PG 01/03/2023 1:54 PM CDT [facility] MCHC 32.4(L) 33.0 - 36.0 G/DL 01/03/2023 1:54 PM CDT [facility] RDW 12.7 11.5 - 14.5 % 01/03/2023 1:54 PM CDT [facility] PLT 35(L) 150 - 350 x10'3/uL 01/03/2023 1:54 PM CDT [facility] MPV RESULTS NOT AVAILABLE 7.4 - 10.4 FL 01/03/2023 1:54 PM CDT [facility] CBC COMMENT NORMAL REFERENCE RANGE NOT ESTABLISHED FOR THE PROPORTIONAL LEUKOCYTE DIFFERENTIAL. 01/03/2023 1:54 PM CDT [facility] NEUTROPHILS % 71.6 % 01/03/2023 1:56 PM CDT [facility] LYMPHOCYTES % 18.0 % 01/03/2023 1:56 PM CDT [facility] MONOCYTES % 5.3 % 01/03/2023 1:56 PM CDT [facility] EOSINOPHILS % 4.2 % 01/03/2023 1:56 PM CDT [facility] BASOPHILS % 0.6 % 01/03/2023 1:56 PM CDT [facility] IMMATURE GRANS % 0.3 % 01/04/20 1:56 PM CDT [facility] NRBC 0.0 % 01/03/2023 1:56 PM CDT [facility] ABS. NEUTROPHILS 7.59 1.60 - 8.30 x10'3/uL 01/03/2023 1:56 PM CDT [facility] ABS. LYMPHOCYTES 1.91 0.80 - 4.70 x10'3/uL 01/03/2023 1:56 PM CDT [facility] ABS. MONOCYTES 0.56 0.00 - 1.50 x10'3/uL 01/03/2023 1:56 PM CDT [facility] ABS. EOSINOPHILS 0.45(H) 0.00 - 0.40 x10'3/uL 01/03/2023 1:56 PM CDT [facility] ABS. BASOPHILS 0.06 0.00 - 0.20 x10'3/uL 01/03/2023 1:56 PM CDT [facility] ABS. IMMATURE GRANULOCYTES 0.03 0.00 - 0.03 x10'3/uL 01/03/2023 1:56 PM CDT [facility] ABS. NUCLEATED RBC'S 0.00 0.00 x10'3/uL 01/03/2023 1:56 PM CDT [facility] PLT MORPH. DECREASED 01/03/2023 1:56 PM CDT [facility] RBC MORPHOLOGY NORMAL 01/03/2023 1:56 PM CDT [facility] 01/03/2023 12:5 5 PM CDT Carey [facility] Final Res ult [facility] [address] [place] [address], documented in this encounter Visit Diagnoses Diagnosis Thrombocytopenia (CMS/HCC) Thrombocytopenia, unspecified documented in this encounter Additional Health Concerns Infection Onset Date Last Indicated Resolved Time MRSA 06/05/2021 06/05/2021 documented as of this encounter Care Teams Ornamental Bronze Worker Relationship Specialty Start Date End Date Alejandro Blevins MD PCP - General FAMILY PRACTICE 12/10/19 documented as of this encounter
--- OUTSIDE RECORDS SUMMARY | 2024-07-11 09:55 | XMS_ITS | Encounter Summary ---
Author Organization [facility] Address [facility] [facility] [place] [address] [place] [address] Care Team Providers Care Pinion Staker Name Role Phone Alejandro Blevins MD Primary Care Provider [phone] Encounter Details Date Type Department Care Team (Late st Contact Info) Description 01/03/2023 Orders Only [address] [place] [address] Roberta Alex MD [address] [place] [address] Social History Tobacco Use Types Packs/Day Years Used Date Smoking Tobacco: Every Day Cigarettes Smokeless Tobacco: Never Alcohol Use Standard Drinks/Week Comments Not Currently 0 (1 standard drink = 0.6 oz pur e alcohol) Comments No Sex and Gender Information Value Date Recorded Sex Assigned at Not on file Legal Sex Female 11:30 PM CASTING MACHINE OPERATOR AUTOMATIC Gender Identity Female 11/10/2021 3:09 PM CDT [...] Assessment Author Status No 07/30/2020 10:48 PM CASTING MACHINE OPERATOR AUTOMATIC Acti ve * RETIRED Are you blind or do you have serious difficulty seeing, even when wearing glasses? Answer Date of Assessment Author Status No 07/30/2020 10:46 PM CASTING MACHINE OPERATOR AUTOMATIC Acti ve * Do you have serious [...] Assessment Author Status No 07/30/2020 10:46 PM CASTING MACHINE OPERATOR AUTOMATIC Nella Le RN Active documented as of this encounter Mental Status * Because of a physical, mental, or emotional condition, do you have serious difficulty concentrating, remembering, or making decisions? Answer Entry Date Author Status No 07/30/2020 10:46 PM Nella Leonardo RN Active documented in this encounter Plan of Treatment Upcoming Encounters Date Type Department Care Team (Late st [facility] Info) Description 09/25/2024 11:30 AM CASTING MACHINE OPERATOR AUTOMATIC Appointment [facility] Counts include 234 beds at the [facility] [place] [address] Roberta Alex MD [address] [place] [address] [id number] 09/25/2024 11:40 AM CASTING MACHINE OPERATOR AUTOMATIC Office Visit [facility] Counts include 234 beds at the [facility] [place] [address] Roberta Alex MD [address] [place] [id number] documented as of this encounter Results * (ABNORMAL) CBC W/DIFF AUTOMATED (09/22/2023 1:07 PM CASTING MACHINE OPERATOR AUTOMATIC) WBC 7.48 4.00 - 10.80 x10'3/uL 09/22/2023 1:19 PM CASTING MACHINE OPERATOR AUTOMATIC [facility] RBC 4.72 4.10 - 5.40 x10'6/uL 09/22/2023 1:19 PM CASTING MACHINE OPERATOR AUTOMATIC [facility] HGB 13.6 12.0 - 16.0 G/DL 09/22/2023 1:19 PM [facility] HCT 42.1 36.0 - 47.0 % 09/22/2023 1:19 PM [facility] MCV 89.2 78.0 - 100.0 FL 09/22/2023 1:19 PM [facility] MCH 28.8 27.0 - 31.0 PG 09/22/2023 1:19 PM [facility] MCHC 32.3(L) 33.0 - 36.0 G/DL 09/22/2023 1:19 PM [facility] RDW 12.0 11.5 - 14.5 % 09/22/2023 1:19 PM [facility] PLT 31(L) 150 - 350 x10'3/uL 09/22/2023 1:19 PM [facility] MPV RESULTS NOT AVAILABLE 7.4 - 10.4 FL 09/22/2023 1:19 PM [facility] CBC COMMENT NORMAL REFERENCE RANGE NOT ESTABLISHED FOR THE PROPORTIONAL LEUKOCYTE DIFFERENTIAL. 09/22/2023 1:19 PM [facility] NEUTROPHILS % 73.2 % 09/22/2023 1:41 PM [facility] LYMPHOCYTES % 18.0 % 09/22/2023 1:41 PM [facility] MONOCYTES % 2.9 % 09/22/2023 1:41 PM [facility] EOSINOPHILS % 4.8 % 09/22/2023 1:41 PM [facility] BASOPHILS % 0.8 % 09/22/2023 1:41 PM [facility] IMMATURE GRANS % 0.3 % 09/22/19 1:41 PM CASTING MACHINE OPERATOR AUTOMATIC [facility] NRBC 0.0 % 09/22/2023 1:41 PM [facility] ABS. NEUTROPHILS 5.48 1.60 - 8.30 x10'3/uL 09/22/2023 1:41 PM [facility] ABS. LYMPHOCYTES 1.35 0.80 - 4.70 x10'3/uL 09/22/2023 1:41 PM CASTING MACHINE OPERATOR AUTOMATIC [facility] ABS. MONOCYTES 0.22 0.00 - 1.50 x10'3/uL 09/22/2023 1:41 PM CASTING MACHINE OPERATOR AUTOMATIC [facility] ABS. EOSINOPHILS 0.36 0.00 - 0.40 x10'3/uL 09/22/2023 1:41 PM CASTING MACHINE OPERATOR AUTOMATIC [facility] ABS. BASOPHILS 0.06 0.00 - 0.20 x10'3/uL 09/22/2023 1:41 PM CASTING MACHINE OPERATOR AUTOMATIC [facility] ABS. IMMATURE GRANULOCYTES 0.02 0.00 - 0.03 x10'3/uL 09/22/2023 1:41 PM CASTING MACHINE OPERATOR AUTOMATIC [facility] ABS. NUCLEATED RBC'S 0.00 0.00 x10'3/uL 09/22/2023 1:41 PM CASTING MACHINE OPERATOR AUTOMATIC [facility] PLT MORPH. DECREASED 09/22/2023 1:41 PM CASTING MACHINE OPERATOR AUTOMATIC [facility] RBC MORPHOLOGY NORMAL 09/22/2023 1:41 PM CASTING MACHINE OPERATOR AUTOMATIC [facility] 09/22/2023 1:07 PM CASTING MACHINE OPERATOR AUTOMATIC Roberta Alex MD LABORATORY Final Result [facility] [address] [place] [address], * (ABNORMAL) CBC W/DIFF AUTOMATED (09/07/2023 2:42 PM CASTING MACHINE OPERATOR AUTOMATIC) WBC 7.40 4.00 - 10.80 x10'3/uL 09/07/2023 3:53 PM CASTING MACHINE OPERATOR AUTOMATIC [facility] RBC 5.16 4.10 - 5.40 x10'6/uL 09/07/2023 3:53 PM CASTING MACHINE OPERATOR AUTOMATIC [facility] HGB 14.8 12.0 - 16.0 G/DL 09/07/2023 3:53 PM CASTING MACHINE OPERATOR AUTOMATIC [facility] HCT 46.1 36.0 - 47.0 % 09/07/2023 3:53 PM CASTING MACHINE OPERATOR AUTOMATIC [facility] MCV 89.3 78.0 - 100.0 FL 09/07/2023 3:53 PM [facility] MCH 28.7 27.0 - 31.0 PG 09/07/2023 3:53 PM [facility] MCHC 32.1(L) 33.0 - 36.0 G/DL 09/07/2023 3:53 PM [facility] RDW 12.3 11.5 - 14.5 % 09/07/2023 3:53 PM [facility] PLT 36(L) 150 - 350 x10'3/uL 09/07/2023 3:53 PM [facility] MPV RESULTS NOT AVAILABLE 7.4 - 10.4 FL 09/07/2023 3:53 PM [facility] CBC COMMENT NORMAL REFERENCE RANGE NOT ESTABLISHED FOR THE PROPORTIONAL LEUKOCYTE DIFFERENTIAL. 09/07/2023 3:53 PM [facility] NEUTROPHILS % 70.6 % 09/07/2023 5:06 PM [facility] LYMPHOCYTES % 19.6 % 09/07/2023 5:06 PM [facility] MONOCYTES % 3.9 % 09/07/2023 5:06 PM [facility] EOSINOPHILS % 4.6 % 09/07/2023 5:06 PM [facility] BASOPHILS % 0.9 % 09/07/2023 5:06 PM [facility] IMMATURE GRANS % 0.4 % 09/07/19 5:06 PM [facility] NRBC 0.0 % 09/07/2023 5:06 PM [facility] ABS. NEUTROPHILS 5.22 1.60 - 8.30 x10'3/uL 09/07/2023 5:06 PM [facility] ABS. LYMPHOCYTES 1.45 0.80 - 4.70 x10'3/uL 09/07/2023 5:06 PM [facility] ABS. MONOCYTES 0.29 0.00 - 1.50 x10'3/uL 09/07/2023 5:06 PM [facility] ABS. EOSINOPHILS 0.34 0.00 - 0.40 x10'3/uL 09/07/2023 5:06 PM CASTING MACHINE OPERATOR AUTOMATIC [facility] ABS. BASOPHILS 0.07 0.00 - 0.20 x10'3/uL 09/07/2023 5:06 PM CASTING MACHINE OPERATOR AUTOMATIC [facility] ABS. IMMATURE GRANULOCYTES 0.03 0.00 - 0.03 x10'3/uL 09/07/2023 5:06 PM [facility] ABS. NUCLEATED RBC'S 0.00 0.00 x10'3/uL 09/07/2023 5:06 PM [facility] PLT MORPH. DECREASED 09/07/2023 5:06 PM [facility] RBC MORPHOLOGY NORMAL 09/07/2023 5:06 PM [facility] 09/07/2023 2:42 PM CASTING MACHINE OPERATOR AUTOMATIC Roberta Alex MD LABORATORY Final Result [facility] [address] [place] [address], * (ABNORMAL) CBC W/DIFF AUTOMATED (06/28/2023 10:08 AM CASTING MACHINE OPERATOR AUTOMATIC) WBC 10.42 4.00 - 10.80 x10'3/uL 06/28/2023 10:35 AM [facility] RBC 4.53 4.10 - 5.40 x10'6/uL 06/28/2023 10:35 AM [facility] HGB 13.2 12.0 - 16.0 G/DL 06/28/2023 10:35 AM [facility] HCT 41.1 36.0 - 47.0 % 06/28/2023 10:35 AM [facility] MCV 90.7 78.0 - 100.0 FL 06/28/2023 10:35 AM [facility] MCH 29.1 27.0 - 31.0 PG 06/28/2023 10:35 AM [facility] MCHC 32.1(L) 33.0 - 36.0 G/DL 06/28/2023 10:35 AM [facility] RDW 12.7 11.5 - 14.5 % 06/28/2023 10:35 AM [facility] PLT 39(L) 150 - 350 x10'3/uL 06/28/2023 10:35 AM [facility] MPV RESULTS NOT AVAILABLE 7.4 - 10.4 FL 06/28/2023 10:35 AM [facility] CBC COMMENT NORMAL REFERENCE RANGE NOT ESTABLISHED FOR THE PROPORTIONAL LEUKOCYTE DIFFERENTIAL. 06/28/2023 10:35 AM [facility] NEUTROPHILS % 66.4 % 06/28/2023 10:58 AM [facility] LYMPHOCYTES % 16.6 % 06/28/2023 10:58 AM [facility] MONOCYTES % 5.7 % 06/28/2023 10:58 AM [facility] EOSINOPHILS % 9.7 % 06/28/2023 10:58 AM [facility] BASOPHILS % 1.2 % 06/28/2023 10:58 AM [facility] IMMATURE GRANS % 0.4 % 06/28/20 10:58 AM [facility] NRBC 0.0 % 06/28/2023 10:58 AM [facility] ABS. NEUTROPHILS 6.92 1.60 - 8.30 x10'3/uL 06/28/2023 10:58 AM [facility] ABS. LYMPHOCYTES 1.73 0.80 - 4.70 x10'3/uL 06/28/2023 10:58 AM [facility] ABS. MONOCYTES 0.59 0.00 - 1.50 x10'3/uL 06/28/2023 10:58 AM [facility] ABS. EOSINOPHILS 1.01(H) 0.00 - 0.40 x10'3/uL 06/28/2023 10:58 AM [facility] ABS. BASOPHILS 0.13 0.00 - 0.20 x10'3/uL 06/28/2023 10:58 AM CASTING MACHINE OPERATOR AUTOMATIC [facility] ABS. IMMATURE GRANULOCYTES 0.04(H) 0.00 - 0.03 x10'3/uL 06/28/2023 10:58 AM CASTING MACHINE OPERATOR AUTOMATIC [facility] ABS. NUCLEATED RBC'S 0.00 0.00 x10'3/uL 06/28/2023 10:58 AM CASTING MACHINE OPERATOR AUTOMATIC [facility] PLT MORPH. DECREASED 06/28/2023 10:58 AM CASTING MACHINE OPERATOR AUTOMATIC [facility] Comment:1+ LARGE PLATELETS S EEN RBC MORPHOLOGY NORMAL 06/28/2023 10:58 AM CASTING MACHINE OPERATOR AUTOMATIC [facility] 06/28/2023 10:0 8 AM CASTING MACHINE OPERATOR AUTOMATIC us Roberta Alex MD LABORATORY Final Result [facility] [address] [place] [address], * (ABNORMAL) CBC W/DIFF AUTOMATED (03/24/2023 2:22 PM CDT) WBC 8.77 4.00 - 10.80 x10'3/uL 04/08/2023 12:01 PM CDT [facility] Comment:SPECIMEN PROCESSED D URING DOWNTIME RBC 4.60 4.10 - 5.40 x10'6/uL 04/08/2023 12:01 PM CDT [facility] HGB 13.9 12.0 - 16.0 G/DL 04/08/2023 12:01 PM CDT [facility] HCT 42.4 36.0 - 47.0 % 04/08/2023 12:01 PM CDT [facility] MCV 92.2 78.0 - 100.0 FL 04/08/2023 12:01 PM CDT [facility] MCH 30.2 27.0 - 31.0 PG 04/08/2023 12:01 PM CDT [facility] MCHC 32.8(L) 33.0 - 36.0 G/DL 04/08/2023 12:01 PM CDT [facility] RDW 12.3 11.5 - 14.5 % 04/08/2023 12:01 PM CDT [facility] PLT 41(L) 150 - 350 x10'3/uL 04/08/2023 12:01 PM CDT [facility] MPV RESULTS NOT AVAILABLE 7.4 - 10.4 FL 04/08/2023 12:01 PM CDT [facility] CBC COMMENT NORMAL REFERENCE RANGE NOT ESTABLISHED FOR THE PROPORTIONAL LEUKOCYTE DIFFERENTIAL. 04/08/2023 12:01 PM CDT [facility] NEUTROPHILS % 69.3 % 04/08/2023 12:03 PM CDT [facility] LYMPHOCYTES % 18.7 % 04/08/2023 12:03 PM CDT [facility] MONOCYTES % 5.5 % 04/08/2023 12:03 PM CDT [facility] EOSINOPHILS % 5.7 % 04/08/2023 12:03 PM CDT [facility] BASOPHILS % 0.7 % 04/08/2023 12:03 PM CDT [facility] IMMATURE GRANS % 0.1 % 04/08/20 12:03 PM CDT [facility] NRBC 0.0 % 04/08/2023 12:03 PM CDT [facility] ABS. NEUTROPHILS 6.08 1.60 - 8.30 x10'3/uL 04/08/2023 12:03 PM CDT [facility] ABS. LYMPHOCYTES 1.64 0.80 - 4.70 x10'3/uL 04/08/2023 12:03 PM CDT [facility] ABS. MONOCYTES 0.48 0.00 - 1.50 x10'3/uL 04/08/2023 12:03 PM CDT [facility] ABS. EOSINOPHILS 0.50(H) 0.00 - 0.40 x10'3/uL 04/08/2023 12:03 PM CDT [facility] ABS. BASOPHILS 0.06 0.00 - 0.20 x10'3/uL 04/08/2023 12:03 PM CDT [facility] ABS. IMMATURE GRANULOCYTES 0.01 0.00 - 0.03 x10'3/uL 04/08/2023 12:03 PM CDT [facility] ABS. NUCLEATED RBC'S 0.00 0.00 x10'3/uL 04/08/2023 12:03 PM CDT [facility] PLT MORPH. DECREASED 04/08/2023 12:03 PM CDT [facility] RBC MORPHOLOGY NORMAL 04/08/2023 12:03 PM CDT [facility] 03/24/2023 2:22 PM CDT Roberta Alex MD LABORATORY Final Result [facility] [address] [place] [address], * (ABNORMAL) CBC W/DIFF AUTOMATED (01/20/2023 1:53 PM CDT) WBC 13.84(H) 4.00 - 10.80 x10'3/uL 01/20/2023 1:59 PM CDT [facility] RBC 4.70 4.10 - 5.40 x10'6/uL 01/20/2023 1:59 PM CDT [facility] HGB 13.7 12.0 - 16.0 G/DL 01/20/2023 1:59 PM CDT [facility] HCT 42.6 36.0 - 47.0 % 01/20/2023 1:59 PM CDT [facility] MCV 90.6 78.0 - 100.0 FL 01/20/2023 1:59 PM CDT [facility] MCH 29.1 27.0 - 31.0 PG 01/20/2023 1:59 PM CDT [facility] MCHC 32.2(L) 33.0 - 36.0 G/DL 01/20/2023 1:59 PM CDT [facility] RDW 12.5 11.5 - 14.5 % 01/20/2023 1:59 PM CDT [facility] PLT 254 150 - 350 x10'3/uL 01/20/2023 1:59 PM CDT [facility] MPV 12.7(H) 7.4 - 10.4 FL 01/20/2023 1:59 PM CDT [facility] CBC COMMENT NORMAL REFERENCE RANGE NOT ESTABLISHED FOR THE PROPORTIONAL LEUKOCYTE DIFFERENTIAL. 01/20/2023 1:59 PM CDT [facility] NEUTROPHILS % 79.4 % 01/20/2023 1:59 PM CDT [facility] LYMPHOCYTES % 12.6 % 01/20/2023 1:59 PM CDT [facility] MONOCYTES % 3.8 % 01/20/2023 1:59 PM CDT [facility] EOSINOPHILS % 3.2 % 01/20/2023 1:59 PM CDT [facility] BASOPHILS % 0.7 % 01/20/2023 1:59 PM CDT [facility] IMMATURE GRANS % 0.3 % 01/21/20 1:59 PM CDT [facility] NRBC 0.0 % 01/20/2023 1:59 PM CDT [facility] ABS. NEUTROPHILS 11.00(H) 1.60 - 8.30 x10'3/uL 01/20/2023 1:59 PM CDT [facility] ABS. LYMPHOCYTES 1.74 0.80 - 4.70 x10'3/uL 01/20/2023 1:59 PM CDT [facility] ABS. MONOCYTES 0.53 0.00 - 1.50 x10'3/uL 01/20/2023 1:59 PM CDT [facility] ABS. EOSINOPHILS 0.44(H) 0.00 - 0.40 x10'3/uL 01/20/2023 1:59 PM CDT [facility] ABS. BASOPHILS 0.09 0.00 - 0.20 x10'3/uL 01/20/2023 1:59 PM CDT [facility] ABS. IMMATURE GRANULOCYTES 0.04(H) 0.00 - 0.03 x10'3/uL 01/20/2023 1:59 PM CDT [facility] ABS. NUCLEATED RBC'S 0.00 0.00 x10'3/uL 01/20/2023 1:59 PM CDT [facility] 01/20/2023 1:53 PM CDT Roberta Alex MD LABORATORY Final Result [facility] [address] [place] [address], * (ABNORMAL) CBC W/DIFF AUTOMATED (01/10/2023 12:39 PM CDT) WBC 9.36 4.00 - 10.80 x10'3/uL 01/10/2023 12:47 PM CDT [facility] RBC 4.88 4.10 - 5.40 x10'6/uL 01/10/2023 12:47 PM CDT [facility] HGB 14.2 12.0 - 16.0 G/DL 01/10/2023 12:47 PM CDT [facility] HCT 43.8 36.0 - 47.0 % 01/10/2023 12:47 PM CDT [facility] MCV 89.8 78.0 - 100.0 FL 01/10/2023 12:47 PM CDT [facility] MCH 29.1 27.0 - 31.0 PG 01/10/2023 12:47 PM CDT [facility] MCHC 32.4(L) 33.0 - 36.0 G/DL 01/10/2023 12:47 PM CDT [facility] RDW 12.7 11.5 - 14.5 % 01/10/2023 12:47 PM CDT [facility] PLT 146(L) 150 - 350 x10'3/uL 01/10/2023 12:47 PM CDT [facility] MPV 13.6(H) 7.4 - 10.4 FL 01/10/2023 12:47 PM CDT [facility] CBC COMMENT NORMAL REFERENCE RANGE NOT ESTABLISHED FOR THE PROPORTIONAL LEUKOCYTE DIFFERENTIAL. 01/10/2023 12:47 PM CDT [facility] NEUTROPHILS % 65.3 % 01/10/2023 12:47 PM CDT [facility] LYMPHOCYTES % 20.9 % 01/10/2023 12:47 PM CDT [facility] MONOCYTES % 6.5 % 01/10/2023 12:47 PM CDT [facility] EOSINOPHILS % 6.3 % 01/10/2023 12:47 PM CDT [facility] BASOPHILS % 0.7 % 01/10/2023 12:47 PM CDT [facility] IMMATURE GRANS % 0.3 % 01/11/20 12:47 PM CDT [facility] NRBC 0.0 % 01/10/2023 12:47 PM CDT [facility] ABS. NEUTROPHILS 6.10 1.60 - 8.30 x10'3/uL 01/10/2023 12:47 PM CDT [facility] ABS. LYMPHOCYTES 1.96 0.80 - 4.70 x10'3/uL 01/10/2023 12:47 PM CDT [facility] ABS. MONOCYTES 0.61 0.00 - 1.50 x10'3/uL 01/10/2023 12:47 PM CDT [facility] ABS. EOSINOPHILS 0.59(H) 0.00 - 0.40 x10'3/uL 01/10/2023 12:47 PM CDT [facility] ABS. BASOPHILS 0.07 0.00 - 0.20 x10'3/uL 01/10/2023 12:47 PM CDT [facility] ABS. IMMATURE GRANULOCYTES 0.03 0.00 - 0.03 x10'3/uL 01/10/2023 12:47 PM CDT [facility] ABS. NUCLEATED RBC'S 0.00 0.00 x10'3/uL 01/10/2023 12:47 PM CDT [facility] 01/10/2023 12:3 9 PM CDT Roberta Alex MD LABORATORY Final Result [facility] [address] [place] [phone], documented in this encounter Visit Diagnoses Diagnosis Acute ITP (CMS/HCC HHS/HCC)- Primary Immune thrombocytopenic purpura documented in this encounter Additional Health Concerns Infection Onset Date Last Indicated Resolved Time MRSA 06/05/2021 06/05/2021 documented as of this encounter Care Teams Pinion Staker Relationship Specialty Start Date End Date Alejandro Blevins MD PCP - General FAMILY PRACTICE 12/10/19 documented as of this encounter
--- OUTSIDE RECORDS SUMMARY | 2024-07-11 09:55 | XMS_ITS | Encounter Summary ---
Author Organization [facility] Address [address] [place] [address]. [place] [address] [place] [address] Care Team Providers Care Waiter/Waitress Buffet Name Role Phone Alejandro Blevins MD Primary Care Provider [phone] Reason for Visit * Reason Comments Follow Up Acute ITP Lab Results Encounter Details Date Type Department Care Team (Late st Contact Info) Description 01/03/2023 1:00 PM CDT Office Visit [address] [place] [address] Carey Pang, APNP [address] [place] [phone] Follow Up (Acute ITP); Lab Results [...] on file Legal Sex Female 11:30 PM CEMETERY KEEPER Gender Identity Female 11/10/2021 3:09 PM CDT [...] Assessment Author Status No 07/30/2020 10:48 PM CEMETERY KEEPER Acti ve * RETIRED Are you blind or do you have serious difficulty seeing, even when wearing glasses? Answer Date of Assessment Author Status No 07/30/2020 10:46 PM CEMETERY KEEPER Acti ve * Do you have serious [...] (Acute ITP) and Lab Results HEMATOLOGY HISTORY: Hillary Smalls is a 30-year-old female with hx of ITP, hepatitis C, polysubstance abuse,established care with me when she was with twins at 20 weeks gestation in 11/2019 and had no care. 1. ITP: Previously followed with [facility] rn research Dr. Dick Bonilla. - 11/2019- 03/2020: Platelet [...] Current Outpatient Medications Medication Sig Dispense Refill uqxmefz-erujllpvynqzw-fnndajmw (EXCEDRIN MIGRAINE) 250-250-65 MG tablet Take 1 [...] IV iron if indicated. Recommended follow-up with [facility]CH[facility] regarding vaginal bleeding with IUD use. We [...] st Contact Info) Description 09/25/2024 11:30 AM CEMETERY KEEPER Appointment [facility] [address] [place] [address] Roberta Alex MD [address] [place], [place] [address] 09/25/2024 11:40 AM CEMETERY KEEPER Office Visit [facility] [address] [place] [address] Roberta Alex MD [address] [place], [place] [address] documented as of this encounter Results * (ABNORMAL) CBC W/DIFF AUTOMATED (08/12/2023 12:02 PM CEMETERY KEEPER) WBC 6.55 4.00 - 10.80 x10'3/uL 08/12/2023 12:12 PM CEMETERY KEEPER [facility] RBC 4.48 4.10 - 5.40 x10'6/uL 08/12/2023 12:12 PM CEMETERY KEEPER [facility] HGB 13.1 12.0 - 16.0 G/DL 08/12/2023 12:12 PM CEMETERY KEEPER [facility] HCT 40.8 36.0 - 47.0 % 08/12/2023 12:12 PM CEMETERY KEEPER [facility] MCV 91.1 78.0 - 100.0 FL 08/12/2023 12:12 PM CEMETERY KEEPER [facility] MCH 29.2 27.0 - 31.0 PG 08/12/2023 12:12 PM CEMETERY KEEPER [facility] MCHC 32.1(L) 33.0 - 36.0 G/DL 08/12/2023 12:12 PM CEMETERY KEEPER [facility] RDW 12.9 11.5 - 14.5 % 08/12/2023 12:12 PM CEMETERY KEEPER [facility] PLT 43(L) 150 - 350 x10'3/uL 08/12/2023 12:12 PM CEMETERY KEEPER [facility] MPV 15.4(H) 7.4 - 10.4 FL 08/12/2023 12:12 PM CEMETERY KEEPER [facility] CBC COMMENT NORMAL REFERENCE RANGE NOT ESTABLISHED FOR THE PROPORTIONAL LEUKOCYTE DIFFERENTIAL. 08/12/2023 12:12 PM CEMETERY KEEPER [facility] NEUTROPHILS % 57.9 % 08/12/2023 12:20 PM [facility] LYMPHOCYTES % 23.7 % 08/12/2023 12:20 PM [facility] MONOCYTES % 7.0 % 08/12/2023 12:20 PM [facility] EOSINOPHILS % 10.2 % 08/12/2023 12:20 PM [facility] BASOPHILS % 0.9 % 08/12/2023 12:20 PM [facility] IMMATURE GRANS % 0.3 % 08/12/19 12:20 PM CEMETERY KEEPER [facility] NRBC 0.0 % 08/12/2023 12:20 PM [facility] ABS. NEUTROPHILS 3.79 1.60 - 8.30 x10'3/uL 08/12/2023 12:20 PM [facility] ABS. LYMPHOCYTES 1.55 0.80 - 4.70 x10'3/uL 08/12/2023 12:20 PM [facility] ABS. MONOCYTES 0.46 0.00 - 1.50 x10'3/uL 08/12/2023 12:20 PM [facility] ABS. EOSINOPHILS 0.67(H) 0.00 - 0.40 x10'3/uL 08/12/2023 12:20 PM [facility] ABS. BASOPHILS 0.06 0.00 - 0.20 x10'3/uL 08/12/2023 12:20 PM [facility] ABS. IMMATURE GRANULOCYTES 0.02 0.00 - 0.03 x10'3/uL 08/12/2023 12:20 PM [facility] ABS. NUCLEATED RBC'S 0.00 0.00 x10'3/uL 08/12/2023 12:20 PM CEMETERY KEEPER [facility] PLT MORPH. DECREASED 08/12/2023 12:20 PM CEMETERY KEEPER [facility] RBC MORPHOLOGY 1+ 08/12/2023 12:20 PM CEMETERY KEEPER [facility] Comment: ANISOCYTOSIS 1+ POIKILOCYTOSIS 1+ MICROCYTES 08/12/2023 12:0 2 PM CEMETERY KEEPER us [facility] Final Res ult 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
--- OUTSIDE RECORDS SUMMARY | 2024-07-11 09:55 | XMS_ITS | Encounter Summary ---
Author Organization [facility] Address [address] [place] [address]. [place] [address] [place] [address] Care Team Providers Care Environmental Director Name Role Phone Alejandro Blevins MD Primary Care Provider [phone] Encounter Details Date Type Department Care Team (Latest Contact Info) Description 12/23/2022 10:50 AM CDT - 12/23/2022 10:59 AM CDT Hospital Encounter [facility] [address] [place] [address] [place] [address] Carey Pang, EMANUEL [address] [place] [phone] Discharge Disposition: Home or Self Care (Routine Discharge) Social History Tobacco Use Types Packs/Day Years Used Date Smoking Tobacco: Every Day Cigarettes Smokeless Tobacco: Never Alcohol Use Standard Drinks/Week Comments Not Currently 0 (1 standard drink = 0.6 oz pur e alcohol) Comments No Sex and Gender Information Value Date Recorded Sex Assigned at Not on file Legal Sex Female 11:30 PM SINGLE POINTED OPERATOR Gender Identity Female 11/10/2021 3:09 PM [...] Assessment Author Status No 07/30/2020 10:48 PM SINGLE POINTED OPERATOR Acti ve * RETIRED Are you blind or do you have serious difficulty seeing, even when wearing glasses? Answer Date of Assessment Author Status No 07/30/2020 10:46 PM SINGLE POINTED OPERATOR Acti ve * Do you have serious difficulty walking or climbing stairs? Answer Date of Assessment Author Status No 07/30/2020 10:46 PM Nella Leonardo RN Active * Do you have difficulty dressing or bathing? Answer Date of Assessment Author Status No 07/30/2020 10:46 PM Nella Leonadro RN Active * Because of a physical, [...] (PRILOSEC) 20 MG capsuleIndication s:Acute ITP (CMS/HCC [facility]/HCC) Take 1 capsule (20 mg total) by mouth daily. 30 capsule 1 12/07/2022 04/11/2023 documented as of this encounter Plan of Treatment Upcoming Encounters Date Type Department Care Team (Late st Contact Info) Description 09/25/2024 11:30 AM SINGLE POINTED OPERATOR Appointment [facility] [place] [address] Roberta Alex MD [address] [place] [address] 09/25/2024 11:40 AM SINGLE POINTED OPERATOR Office Visit [facility] [place] [address] Roberta Alex MD [address] [place] [address] documented as of this encounter Procedures Procedure Name Priority Date/Time Associated Diagnosis Comments CBC W/DIFF AUTOMATED Routine 12/23/2022 11:26 AM CDT Thrombocytopenia documented in this encounter Results * (ABNORMAL) CBC W/DIFF AUTOMATED (12/23/2022 11:26 AM CDT) WBC 6.65 4.00 - 10.80 x10'3/uL 12/23/2022 12:43 PM CDT [facility] RBC 4.60 4.10 - 5.40 x10'6/uL 12/23/2022 12:43 PM CDT [facility] HGB 13.0 12.0 - 16.0 G/DL 12/23/2022 12:43 PM CDT [facility] HCT 41.5 36.0 - 47.0 % 12/23/2022 12:43 PM CDT [facility] MCV 90.2 78.0 - 100.0 FL 12/23/2022 12:43 PM CDT [facility] MCH 28.3 27.0 - 31.0 PG 12/23/2022 12:43 PM CDT [facility] MCHC 31.3(L) 33.0 - 36.0 G/DL 12/23/2022 12:43 PM CDT [facility] RDW 12.8 11.5 - 14.5 % 12/23/2022 12:43 PM CDT [facility] PLT 30(L) 150 - 350 x10'3/uL 12/23/2022 12:43 PM CDT [facility] MPV RESULTS NOT AVAILABLE 7.4 - 10.4 FL 12/23/2022 12:43 PM CDT [facility] CBC COMMENT NORMAL REFERENCE RANGE NOT ESTABLISHED FOR THE PROPORTIONAL LEUKOCYTE DIFFERENTIAL. 12/23/2022 12:43 PM CDT [facility] NEUTROPHILS % 55.9 % 12/23/2022 12:43 PM CDT [facility] LYMPHOCYTES % 27.5 % 12/23/2022 12:43 PM CDT [facility] MONOCYTES % 7.2 % 12/23/2022 12:43 PM CDT [facility] EOSINOPHILS % 8.3 % 12/23/2022 12:43 PM CDT [facility] BASOPHILS % 0.9 % 12/23/2022 12:43 PM CDT [facility] IMMATURE GRANS % 0.2 % 12/24/19 12:43 PM CDT [facility] NRBC 0.0 % 12/23/2022 12:43 PM CDT [facility] ABS. NEUTROPHILS 3.72 1.60 - 8.30 x10'3/uL 12/23/2022 12:43 PM CDT [facility] ABS. LYMPHOCYTES 1.83 0.80 - 4.70 x10'3/uL 12/23/2022 12:43 PM CDT [facility] ABS. MONOCYTES 0.48 0.00 - 1.50 x10'3/uL 12/23/2022 12:43 PM CDT [facility] ABS. EOSINOPHILS 0.55(H) 0.00 - 0.40 x10'3/uL 12/23/2022 12:43 PM CDT [facility] ABS. BASOPHILS 0.06 0.00 - 0.20 x10'3/uL 12/23/2022 12:43 PM CDT [facility] ABS. IMMATURE GRANULOCYTES 0.01 0.00 - 0.03 x10'3/uL 12/23/2022 12:43 PM CDT [facility] ABS. NUCLEATED RBC'S 0.00 0.00 x10'3/uL 12/23/2022 12:43 PM CDT [facility] PLT MORPH. DECREASED 12/23/2022 12:43 PM CDT [facility] RBC MORPHOLOGY NORMAL 12/23/2022 12:43 PM CDT [facility] 12/23/2022 11:2 6 AM CDT us [facility] Final Res ult [facility] [address] [place] [address], documented in this encounter Visit Diagnoses Diagnosis Thrombocytopenia (CMS/HCC) Thrombocytopenia, unspecified documented in this encounter Additional Health Concerns Infection Onset Date Last Indicated Resolved Time MRSA 06/05/2021 06/05/2021 documented as of this encounter Care Teams Environmental Director Relationship Specialty Start Date End Date Alejandro Blevins MD PCP - General FAMILY PRACTICE 12/10/19 documented as of this encounter
--- OUTSIDE RECORDS SUMMARY | 2024-07-11 09:55 | XMS_ITS | Encounter Summary ---
Author Organization [facility] Address [facility] [place] [address] [place] [address] Care Team Providers Care Back End Architect Name Role Phone Alejandro Blevins MD Primary Care Provider [phone] Reason for Visit * Reason Comments Injection * Treatment/Therapy Plan Authorization (Routine) - Closed Specialty Diagnoses / Procedures Referred By Contac t Referred To Contact Diagnoses Chronic ITP (idiopathic thrombocytopenia) ([facility]) Thrombocytopenia ([facility]) Procedures ITP RomiPLOStim Roberta Alex MD [address] [place] [address] Phone: tel: fax: [facility] [place] [place] [address] Phone: tel: Referral ID Status Reason Start Date Expiration Date Visits Re quested Visits Authorized [id number] Closed 12/23/2022 03/25/2023 1 1 Encounter Details Date Type Department Care Team (Late st Contact Info) Description 01/10/2023 12:25 PM CDT - 01/10/2023 11:59 PM CDT Hospital Encounter [facility] [place] [address] Alejandro Blevins MD [address] [place] [address] Injection Discharge Disposition: Home or [...] on file Legal Sex Female 11:30 PM BONDERIZER Gender Identity Female 11/10/2021 3:09 PM CDT [...] Assessment Author Status No 07/30/2020 10:48 PM BONDERIZER Acti ve * RETIRED Are you blind or do you have serious difficulty seeing, even when wearing glasses? Answer Date of Assessment Author Status No 07/30/2020 10:46 PM BONDERIZER Acti ve * Do you have serious difficulty walking or climbing stairs? Answer Date of Assessment Author Status No 07/30/2020 10:46 PM BONDERIZER Nella Le RN Active * Do you have difficulty dressing or bathing? Answer Date of Assessment Author Status No 07/30/2020 10:46 PM BONDERIZER Nella Le RN Active * Because of a physical, mental, or emotional condition, do you have difficulty doing errands alone such as visiting a doctor's office or shopping? Answer Date of Assessment Author Status No 07/30/2020 10:46 PM BONDERIZER Nella Le RN Active documented as of this encounter Mental Status * Because of a physical, mental, or emotional condition, do you have serious difficulty concentrating, remembering, or making decisions? Answer Entry Date Author Status No 07/30/2020 10:46 PM BONDERIZER Nella Le RN Active documented in this [...] st Contact Info) Description 09/25/2024 11:30 AM BONDERIZER Appointment [facility] [address] [place] [address] Roberta Alex MD [address] [place] [address] 09/25/2024 11:40 AM BONDERIZER Office Visit [facility] [address] [facility] [facility] [place] [address] Roberta Alex MD [address] [place] [address] documented as of this encounter Visit Diagnoses [...] documented as of this encounter Care Teams Back End Architect Relationship Specialty Start Date End Date Alejandro Blevins MD PCP - General FAMILY PRACTICE 12/10/19 documented as of this encounter
--- OUTSIDE RECORDS SUMMARY | 2024-07-11 09:55 | XMS_ITS | Encounter Summary ---
Author Organization [facility] Address [facility] [place] [address] [place] [address] Care Team Providers Care Bonsai Culturist Name Role Phone Alejandro Blevins MD Primary Care Provider [phone] Encounter Details Date Type Department Care Team (Late st Contact Info) Description 01/13/2023 Orders Only [address] [place] [address] Roberta Alex MD [address] [place] [address] Social History Tobacco Use Types Packs/Day Years Used Date Smoking Tobacco: Every Day Cigarettes Smokeless Tobacco: Never Alcohol Use Standard Drinks/Week Comments Not Currently 0 (1 standard drink = 0.6 oz pur e alcohol) Comments No Sex and Gender Information Value Date Recorded Sex Assigned at Not on file Legal Sex Female 11:30 PM CARRY ALL DRIVER Gender Identity Female 11/10/2021 3:09 PM [...] Assessment Author Status No 07/30/2020 10:48 PM CARRY ALL DRIVER Acti ve * RETIRED Are you blind or do you have serious difficulty seeing, even when wearing glasses? Answer Date of Assessment Author Status No 07/30/2020 10:46 PM CARRY ALL DRIVER Acti ve * Do you have [...] st Contact Info) Description 09/25/2024 11:30 AM CARRY ALL DRIVER Appointment [facility] [address] [place] [address] Roberta Alex MD [address] [place] [address] 09/25/2024 11:40 AM CARRY ALL DRIVER Office Visit [facility] [address] [place] [address] Roberta Alex MD [address] [place] [address] documented as of this encounter Visit Diagnoses Diagnosis Abnormal CT scan, chest- Primary Nonspecific (abnormal) findings on radiological and other examination of other intrathoracic organs documented in this encounter Additional Health Concerns Infection Onset Date Last Indicated Resolved Time MRSA 06/05/2021 06/05/2021 documented as of this encounter Care Teams Bonsai Culturist Relationship Specialty Start Date End Date Alejandro Blevins MD PCP - General FAMILY PRACTICE 12/10/19 documented as of this encounter
--- OUTSIDE RECORDS SUMMARY | 2024-07-11 09:55 | XMS_ITS | Encounter Summary ---
Author Organization [facility] Address [address] [place] [address]. [place] [address] [place] [address] Care Team Providers Care Cattle Sorter Name Role Phone Alejandro Blevins MD Primary Care Provider [phone] Reason for Visit * Reason Comments Infusion Therapy Injection * Treatment/Therapy Plan Authorization (Routine) - Closed Specialty Diagnoses / Procedures Referred By Contac t Referred To Contact Diagnoses Iron deficiency anemia due to chronic blood loss Procedures Roberta Evans MD [address] [place] [address] Phone: tel: fax: [facility] [place] [address] Phone: tel: Referral ID Status Reason Start Date Expiration Date Visits Re quested Visits Authorized [id number] Closed 12/07/2022 12/08/2023 1 1 Encounter Details Date Type Department Care Team (Latest Contact Info) Description 12/27/2022 12:21 PM CDT - 12/27/2022 11:59 PM CDT Hospital Encounter [facility] [place] [place] [address] Roberta Alex MD [address] [place] [address] Infusion Therapy; Injection Discharge Disposition: Home or [...] on file Legal Sex Female 11:30 PM DEVELOPER RELATIONS MANAGER Gender Identity Female 11/10/2021 3:09 PM [...] Assessment Author Status No 07/30/2020 10:48 PM DEVELOPER RELATIONS MANAGER Acti ve * RETIRED Are you blind or do you have serious difficulty seeing, even when wearing glasses? Answer Date of Assessment Author Status No 07/30/2020 10:46 PM DEVELOPER RELATIONS MANAGER Acti ve * Do you have serious difficulty walking or climbing stairs? Answer Date of Assessment Author Status No 07/30/2020 10:46 PM DEVELOPER RELATIONS MANAGER Nella Le RN Active * Do [...] st Contact Info) Description 09/25/2024 11:30 AM DEVELOPER RELATIONS MANAGER Appointment [facility] [address] [place] [address] Roberta Alex MD [address] [place] [address] 09/25/2024 11:40 AM DEVELOPER RELATIONS MANAGER Office Visit [facility] [place] [address] Roberta Alex MD [address] [place] [address] documented as of this encounter Visit Diagnoses Diagnosis Iron deficiency anemia due to chronic blood loss- Primary Iron deficiency anemia secondary to blood loss (chronic) Chronic ITP (idiopathic thrombocytopenia) ([facility]/HCC) Immune thrombocytopenic purpura Thrombocytopenia ([facility]/HCC) Thrombocytopenia, unspecified documented in this encounter Administered [...] PLTS greater than 150.Indications:Chronic ITP (idiopathic thrombocytopenia) ([facility]),Thrombocytopenia ([facility]) Given 12/27/2022 1:49 PM CDT 75.2 mcg Left Arm documented in this encounter Additional Health Concerns Infection Onset Date Last Indicated Resolved Time MRSA 06/05/2021 06/05/2021 documented as of this encounter Care Teams Cattle Sorter Relationship Specialty Start Date End Date Alejandro Blevins MD PCP - General FAMILY PRACTICE 12/10/19 documented as of this encounter
--- OUTSIDE RECORDS SUMMARY | 2024-07-11 09:55 | XMS_ITS | Encounter Summary ---
Author Organization [facility] Address [address] [place] [address]. [place], [place] [address] [place] [address] Care Team Providers Care Dusting And Brushing Machine Operator Name Role Phone Alejandro Blevins MD Primary Care Provider [phone] Encounter Details Date Type Department Care Team [...] on file Legal Sex Female 11:30 PM CLOTH COLORER Gender Identity Female 11/10/2021 3:09 PM CDT [...] Assessment Author Status No 07/30/2020 10:48 PM CLOTH COLORER Acti ve * RETIRED Are you blind or do you have serious difficulty seeing, even when wearing glasses? Answer Date of Assessment Author Status No 07/30/2020 10:46 PM CLOTH COLORER Acti ve * Do you have serious difficulty walking or climbing stairs? Answer Date of Assessment Author Status No 07/30/2020 10:46 PM CLOTH COLORER Nella Le RN Active * Do you have difficulty dressing or bathing? Answer Date of Assessment Author Status No 07/30/2020 10:46 PM CLOTH COLORER Nella Le RN Active * Because of a physical, mental, or emotional condition, do you have difficulty doing errands alone such as visiting a doctor's office or shopping? Answer Date of Assessment Author Status No 07/30/2020 10:46 PM CLOTH COLORER Nella Le RN Active documented as of this encounter Mental Status * Because of a physical, mental, or emotional condition, do you have serious difficulty concentrating, remembering, or making decisions? Answer Entry Date Author Status No 07/30/2020 10:46 PM CLOTH COLORER Nella Le RN Active documented in this encounter Plan of Treatment Upcoming Encounters Date Type Department Care Team (Late st Contact Info) Description 09/25/2024 11:30 AM CLOTH COLORER Appointment [facility] [address] [facility] [place] [address] Roberta Alex MD [address] [place] [address] 09/25/2024 11:40 AM CLOTH COLORER Office Visit [facility] [address] [facility] [place] [address] Roberta Alex MD [address] [place] [address] documented as of this encounter Visit Diagnoses Not on filedocumented in this encounter Additional Health Concerns Infection Onset Date Last Indicated Resolved Time MRSA 06/05/2021 06/05/2021 documented as of this encounter Care Teams Dusting And Brushing Machine Operator Relationship Specialty Start Date End Date Alejandro Blevins MD PCP - General FAMILY PRACTICE 12/10/19 documented as of this encounter
--- OUTSIDE RECORDS SUMMARY | 2024-07-11 09:55 | XMS_ITS | Encounter Summary ---
Author Organization [facility] Address [address] [place] [address]. [place] [address] [place] [address] Care Team Providers Care Plant Mechanic Name Role Phone Alejandro Blevins MD Primary Care Provider [phone] Reason for Visit * Reason Onset Date Comments Other 01/13/2023 Encounter Details Date Type Department Care Team (Late st Contact Info) Description 01/13/2023 Telephone [facility] [address] [place] [address] [place] [address] Steffany Clarke, RN Other Social History Tobacco Use Types Packs/Day Years Used Date Smoking Tobacco: Every Day Cigarettes Smokeless Tobacco: Never Alcohol Use Standard Drinks/Week Comments Not Currently 0 (1 standard drink = 0.6 oz pur e alcohol) Comments No Sex and Gender Information Value Date Recorded Sex Assigned at Not on file Legal Sex Female 11:30 PM FIELD SERVICE SUPERVISOR Gender Identity Female 11/10/2021 3:09 PM [...] Assessment Author Status No 07/30/2020 10:48 PM FIELD SERVICE SUPERVISOR Acti ve * RETIRED Are you blind or do you have serious difficulty seeing, even when wearing glasses? Answer Date of Assessment Author Status No 07/30/2020 10:46 PM FIELD SERVICE SUPERVISOR Acti ve * Do you have [...] st Contact Info) Description 09/25/2024 11:30 AM FIELD SERVICE SUPERVISOR Appointment [facility] [address] [place] [address] Roberta Alex MD [address] [place] [address] 09/25/2024 11:40 AM FIELD SERVICE SUPERVISOR Office Visit [facility] [address] [place] [address] Roberta Alex MD [address] [place] [address] documented as of this encounter Visit Diagnoses Not on filedocumented in this encounter Additional Health Concerns Infection Onset Date Last Indicated Resolved Time MRSA 06/05/2021 06/05/2021 documented as of this encounter Care Teams Plant Mechanic Relationship Specialty Start Date End Date Alejandro Blevins MD PCP - General FAMILY PRACTICE 12/10/19 documented as of this encounter
--- OUTSIDE RECORDS SUMMARY | 2024-07-11 09:55 | XMS_ITS | Encounter Summary ---
Author Organization [facility] Address [address] [place] [address]. [place] [address] [place] [address] Care Team Providers Care Eyelet Row Marker Name Role Phone Alejandro Blevins MD Primary Care Provider [phone] Encounter Details Date Type Department Care Team (Latest Contact Info) Description 12/27/2022 12:20 PM CDT Hospital Encounter [facility] [address] [facility] [place] [address] Carey Pang, APNP [address] [place] [phone] Discharge Disposition: Home or Self Care (Routine Discharge) Social History Tobacco Use Types Packs/Day Years Used Date Smoking Tobacco: Every Day Cigarettes Smokeless Tobacco: Never Alcohol Use Standard Drinks/Week Comments Not Currently 0 (1 standard drink = 0.6 oz pur e alcohol) Comments No Sex and Gender Information Value Date Recorded Sex Assigned at Not on file Legal Sex Female 11:30 PM LAUNDRY ROOM ATTENDANT Gender Identity Female 11/10/2021 3:09 PM [...] Assessment Author Status No 07/30/2020 10:48 PM LAUNDRY ROOM ATTENDANT Acti ve * RETIRED Are you blind or do you have serious difficulty seeing, even when wearing glasses? Answer Date of Assessment Author Status No 07/30/2020 10:46 PM LAUNDRY ROOM ATTENDANT Acti ve * Do you have [...] st Contact Info) Description 09/25/2024 11:30 AM LAUNDRY ROOM ATTENDANT Appointment [facility] [place] [address] Roberta Alex MD [address] [place] [address] 09/25/2024 11:40 AM LAUNDRY ROOM ATTENDANT Office Visit [facility] [place] [address] [address] Roberta Alex MD [address] [place] [address] documented as of this encounter Procedures Procedure Name Priority Date/Time Associated Diagnosis Comments CBC W/DIFF AUTOMATED Routine 12/27/2022 12:32 PM CDT Thrombocytopenia documented in this encounter Results * (ABNORMAL) CBC W/DIFF AUTOMATED (12/27/2022 12:32 PM CDT) WBC 11.19(H) 4.00 - 10.80 x10'3/uL 12/27/2022 1:21 PM CDT [facility] RBC 4.82 4.10 - 5.40 x10'6/uL 12/27/2022 1:21 PM CDT [facility] HGB 13.9 12.0 - 16.0 G/DL 12/27/2022 1:21 PM CDT [facility] HCT 43.6 36.0 - 47.0 % 12/27/2022 1:21 PM CDT [facility] MCV 90.5 78.0 - 100.0 FL 12/27/2022 1:21 PM CDT [facility] MCH 28.8 27.0 - 31.0 PG 12/27/2022 1:21 PM CDT [facility] MCHC 31.9(L) 33.0 - 36.0 G/DL 12/27/2022 1:21 PM CDT [facility] RDW 12.7 11.5 - 14.5 % 12/27/2022 1:21 PM CDT [facility] PLT 31(L) 150 - 350 x10'3/uL 12/27/2022 1:21 PM CDT [facility] Comment: CALLED TO [facility]UN AT [facility] AT 1320 READ BACK AND VERIFIED MPV RESULTS NOT AVAILABLE 7.4 - 10.4 FL 12/27/2022 1:21 PM CDT [facility] CBC COMMENT NORMAL REFERENCE RANGE NOT ESTABLISHED FOR THE PROPORTIONAL LEUKOCYTE DIFFERENTIAL. 12/27/2022 1:21 PM CDT [facility] NEUTROPHILS % 72.8 % 12/27/2022 1:29 PM CDT [facility] LYMPHOCYTES % 16.5 % 12/27/2022 1:29 PM CDT [facility] MONOCYTES % 4.8 % 12/27/2022 1:29 PM CDT [facility] EOSINOPHILS % 5.0 % 12/27/2022 1:29 PM CDT [facility] BASOPHILS % 0.7 % 12/27/2022 1:29 PM CDT [facility] IMMATURE GRANS % 0.2 % 12/28/19 1:29 PM CDT [facility] NRBC 0.0 % 12/27/2022 1:29 PM CDT [facility] ABS. NEUTROPHILS 8.14 1.60 - 8.30 x10'3/uL 12/27/2022 1:29 PM CDT [facility] ABS. LYMPHOCYTES 1.85 0.80 - 4.70 x10'3/uL 12/27/2022 1:29 PM CDT [facility] ABS. MONOCYTES 0.54 0.00 - 1.50 x10'3/uL 12/27/2022 1:29 PM CDT [facility] ABS. EOSINOPHILS 0.56(H) 0.00 - 0.40 x10'3/uL 12/27/2022 1:29 PM CDT [facility] ABS. BASOPHILS 0.08 0.00 - 0.20 x10'3/uL 12/27/2022 1:29 PM CDT [facility] ABS. IMMATURE GRANULOCYTES 0.02 0.00 - 0.03 x10'3/uL 12/27/2022 1:29 PM CDT [facility] ABS. NUCLEATED RBC'S 0.00 0.00 x10'3/uL 12/27/2022 1:29 PM CDT [facility] PLT MORPH. DECREASED 12/27/2022 1:29 PM CDT [facility] RBC MORPHOLOGY NORMAL 12/27/2022 1:29 PM CDT [facility] 12/27/2022 12:3 2 PM CDT us [facility] Final Res ult [facility] [address] [place] [address], documented in this encounter Visit Diagnoses Diagnosis Thrombocytopenia (CMS/HCC) Thrombocytopenia, unspecified documented in this encounter Additional Health Concerns Infection Onset Date Last Indicated Resolved Time MRSA 06/05/2021 06/05/2021 documented as of this encounter Care Teams Eyelet Row Marker Relationship Specialty Start Date End Date Alejandro Blevins MD PCP - General FAMILY PRACTICE 12/10/19 documented as of this encounter
--- OUTSIDE RECORDS SUMMARY | 2024-07-11 09:55 | XMS_ITS | Encounter Summary ---
Author Organization [facility] Address [address] [place] [address]. [place], [place] [address] [place] [address] Care Team Providers Care Work And Family Life Consultant Name Role Phone Alejandro Blevins MD Primary Care Provider [phone] Encounter Details Date Type Department Care Team [...] Legal Sex Female 11:30 PM DIRECTOR OF LOSS PREVENTION Gender Identity Female 11/10/2021 3:09 PM CDT [...] Status No 07/30/2020 10:48 PM DIRECTOR OF LOSS PREVENTION Acti ve * RETIRED Are you blind or do you have serious difficulty seeing, even when wearing glasses? Answer Date of Assessment Author Status No 07/30/2020 10:46 PM DIRECTOR OF LOSS PREVENTION Acti ve * Do you have serious difficulty walking or climbing stairs? Answer Date of Assessment Author Status No 07/30/2020 10:46 PM DIRECTOR OF LOSS PREVENTION Nella Le RN Active * Do you have difficulty dressing or bathing? Answer Date of Assessment Author Status No 07/30/2020 10:46 PM DIRECTOR OF LOSS PREVENTION Nella Le RN Active * Because of a physical, mental, or emotional condition, do you have difficulty doing errands alone such as visiting a doctor's office or shopping? Answer Date of Assessment Author Status No 07/30/2020 10:46 PM DIRECTOR OF LOSS PREVENTION Nella Le RN Active documented as of this encounter Mental Status * Because of a physical, mental, or emotional condition, do you have serious difficulty concentrating, remembering, or making decisions? Answer Entry Date Author Status No 07/30/2020 10:46 PM DIRECTOR OF LOSS PREVENTION Nella Le RN Active documented in this encounter Plan of Treatment Upcoming Encounters Date Type Department Care Team (Late st Contact Info) Description 09/25/2024 11:30 AM DIRECTOR OF LOSS PREVENTION Appointment [facility] [address] [address] [place] [address] Roberta Alex MD [address] [place] [address] 09/25/2024 11:40 AM DIRECTOR OF LOSS PREVENTION Office Visit [facility] [address] [place] [address] Roberta Alex MD [address] [place] [address] documented as of this encounter Visit Diagnoses Not on filedocumented in this encounter Additional Health Concerns Infection Onset Date Last Indicated Resolved Time MRSA 06/05/2021 06/05/2021 documented as of this encounter Care Teams Work And Family Life Consultant Relationship Specialty Start Date End Date Alejandro Blevins MD PCP - General FAMILY PRACTICE 12/10/19 documented as of this encounter
--- OUTSIDE RECORDS SUMMARY | 2024-07-11 09:55 | XMS_ITS | Encounter Summary ---
Author Organization [facility] Address [address] [place] [address]. [place] [address] [place] [address] Care Team Providers Care Account Services Representative Name Role Phone Alejandro Blevins MD Primary Care Provider [phone] Reason for Visit * Imaging (Routine) - Closed Specialty Diagnoses / Procedures Referred By Contpriti t Referred To Contact RADIOLOGY Diagnoses Thrombocytopenia (CMS/HCC) Iron deficiency anemia secondary to inadequate dietary iron intake Procedures CT CHEST+ABD WO CON CT CHEST+ABD+PEL WO CON CT CHEST+ABD W CON Carey aPng APNP [address] [place] [phone] Phone: tel: fax: Referral ID Status Reason Start Date Expiration Date Visits Re quested Visits Authorized [id number] Closed 12/08/2022 02/05/2023 1 1 Encounter Details Date Type Department Care Team (Latest Contact Info) Description 01/05/2023 2:58 PM CDT - 01/05/2023 11:59 PM CDT Hospital Encounter [facility] [address] [facility] [place] [address] Carey Pang APNP [address] [place] [phone] Discharge Disposition: Home or Self Care (Routine Discharge) Social History Tobacco Use Types Packs/Day Years Used Date Smoking Tobacco: Every Day Cigarettes Smokeless Tobacco: Never Alcohol Use Standard Drinks/Week Comments Not Currently 0 (1 standard drink = 0.6 oz pur e alcohol) Comments No Sex and Gender Information Value Date Recorded Sex Assigned at Not on file Legal Sex Female 11:30 PM UROLOGIC NURSE Gender Identity Female 11/10/2021 3:09 PM [...] Assessment Author Status No 07/30/2020 10:48 PM UROLOGIC NURSE Acti ve * RETIRED Are you blind or do you have serious difficulty seeing, even when wearing glasses? Answer Date of Assessment Author Status No 07/30/2020 10:46 PM UROLOGIC NURSE Acti ve * Do you have serious difficulty walking or climbing stairs? Answer Date of Assessment Author Status No 07/30/2020 10:46 PM UROLOGIC NURSE Nella Le RN Active * Do you have difficulty dressing or bathing? Answer Date of Assessment Author Status No 07/30/2020 10:46 PM UROLOGIC NURSE Nella Le RN Active * Because of a physical, mental, or emotional condition, do you have difficulty doing errands alone such as visiting a doctor's office or shopping? Answer Date of Assessment Author Status No 07/30/2020 10:46 PM UROLOGIC NURSE Nella Le RN Active documented as [...] st Contact Info) Description 09/25/2024 11:30 AM UROLOGIC NURSE Appointment [facility] [address] [place] [address] Roberta Alex MD [address] [place] [address] 09/25/2024 11:40 AM UROLOGIC NURSE Office Visit [facility] [address] [place] [address] Roberta Alex MD [address] [place] [address] documented as of this encounter Procedures Procedure [...] documented as of this encounter Care Teams Account Services Representative Relationship Specialty Start Date End Date Alejandro Blevins MD PCP - General FAMILY PRACTICE 12/10/19 documented as of this encounter
--- OUTSIDE RECORDS SUMMARY | 2024-07-11 09:55 | XMS_ITS | Encounter Summary ---
Author Organization [facility] Address [address] [place] [address]. [place], [place] [address] [place] [address] Care Team Providers Care Cheese Pancake Roller Name Role Phone Alejandro Blevins MD Primary Care Provider [phone] Encounter Details Date Type Department Care Team [...] on file Legal Sex Female 11:30 PM FAST FOOD SERVER Gender Identity Female 11/10/2021 3:09 PM CDT [...] Assessment Author Status No 07/30/2020 10:48 PM FAST FOOD SERVER Acti ve * RETIRED Are you blind or do you have serious difficulty seeing, even when wearing glasses? Answer Date of Assessment Author Status No 07/30/2020 10:46 PM FAST FOOD SERVER Acti ve * Do you have serious difficulty walking or climbing stairs? Answer Date of Assessment Author Status No 07/30/2020 10:46 PM FAST FOOD SERVER Nella Le RN Active * Do you have difficulty dressing or bathing? Answer Date of Assessment Author Status No 07/30/2020 10:46 PM FAST FOOD SERVER Nella Le RN Active * Because of a physical, mental, or emotional condition, do you have difficulty doing errands alone such as visiting a doctor's office or shopping? Answer Date of Assessment Author Status No 07/30/2020 10:46 PM FAST FOOD SERVER Nella Le RN Active documented as of this encounter Mental Status * Because of a physical, mental, or emotional condition, do you have serious difficulty concentrating, remembering, or making decisions? Answer Entry Date Author Status No 07/30/2020 10:46 PM FAST FOOD SERVER Nella Le RN Active documented in this encounter Plan of Treatment Upcoming Encounters Date Type Department Care Team (Late st Contact Info) Description 09/25/2024 11:30 AM FAST FOOD SERVER Appointment [facility] [address] [place] [address] Roberta Alex MD [address] [place] [address] 09/25/2024 11:40 AM FAST FOOD SERVER Office Visit [facility] [address] [place] [address] Roberta Alex MD [address] [place] [address] documented as of this encounter Visit Diagnoses Not on filedocumented in this encounter Additional Health Concerns Infection Onset Date Last Indicated Resolved Time MRSA 06/05/2021 06/05/2021 documented as of this encounter Care Teams Cheese Pancake Roller Relationship Specialty Start Date End Date Alejandro Blevins MD PCP - General FAMILY PRACTICE 12/10/19 documented as of this encounter
--- OUTSIDE RECORDS SUMMARY | 2024-07-11 09:55 | XMS_ITS | Encounter Summary ---
Author Organization [facility] Address [address] [place] [address]. [place], [place] [address] [place] [address] Care Team Providers Care Wire Coating Machine Operator Name Role Phone Alejandro Blevins [...] file Legal Sex Female 11:30 PM ACCESS NURSE Gender Identity Female 11/10/2021 3:09 PM [...] Assessment Author Status No 07/30/2020 10:48 PM ACCESS NURSE Acti ve * RETIRED Are you blind or do you have serious difficulty seeing, even when wearing glasses? Answer Date of Assessment Author Status No 07/30/2020 10:46 PM ACCESS NURSE Acti ve * Do you have serious difficulty walking or climbing stairs? Answer Date of Assessment Author Status No 07/30/2020 10:46 PM ACCESS NURSE Nella Le RN Active * Do you have difficulty dressing or bathing? Answer Date of Assessment Author Status No 07/30/2020 10:46 PM ACCESS NURSE Nella Le RN Active * Because of a physical, mental, or emotional condition, do you have difficulty doing errands alone such as visiting a doctor's office or shopping? Answer Date of Assessment Author Status No 07/30/2020 10:46 PM ACCESS NURSE Nella Le RN Active documented as of this encounter Mental Status * Because of a physical, mental, or emotional condition, do you have serious difficulty concentrating, remembering, or making decisions? Answer Entry Date Author Status No 07/30/2020 10:46 PM ACCESS NURSE Nella Le RN Active documented in this encounter Plan of Treatment Upcoming Encounters Date Type Department Care Team (Late st Contact Info) Description 09/25/2024 11:30 AM ACCESS NURSE Appointment [facility] [address] [facility] [place] [address] Roberta Alex MD [address] [place] [id number] 09/25/2024 11:40 AM ACCESS NURSE Office Visit [facility] [address] [facility] [place] [address] Roberta Alex MD [address] [place] [address] documented as of this encounter Visit Diagnoses Not on filedocumented in this encounter Additional Health Concerns Infection Onset Date Last Indicated Resolved Time MRSA 06/05/2021 06/05/2021 documented as of this encounter Care Teams Wire Coating Machine Operator Relationship Specialty Start Date End Date Alejandro Blevins MD PCP - General FAMILY PRACTICE 12/10/19 documented as of this encounter
--- OUTSIDE RECORDS SUMMARY | 2024-07-11 09:55 | XMS_ITS | Encounter Summary ---
Author Organization [facility] Address [address] [place] [address]. [place], [place] [address] [place] [address] Care Team Providers Care Associate Sales Representative Name Role Phone Alejandor Blevins MD Primary Care Provider [phone] Encounter Details Date Type Department Care Team [...] on file Legal Sex Female 11:30 PM ADMINISTRATIVE ASSISTANT COORDINATOR Gender Identity Female 11/10/2021 3:09 PM [...] Assessment Author Status No 07/30/2020 10:48 PM ADMINISTRATIVE ASSISTANT COORDINATOR Acti ve * RETIRED Are you blind or do you have serious difficulty seeing, even when wearing glasses? Answer Date of Assessment Author Status No 07/30/2020 10:46 PM ADMINISTRATIVE ASSISTANT COORDINATOR Acti ve * Do you have serious difficulty walking or climbing stairs? Answer Date of Assessment Author Status No 07/30/2020 10:46 PM ADMINISTRATIVE ASSISTANT COORDINATOR Nella Le RN Active * Do you have difficulty dressing or bathing? Answer Date of Assessment Author Status No 07/30/2020 10:46 PM ADMINISTRATIVE ASSISTANT COORDINATOR Nella Le RN Active * Because of a physical, mental, or emotional condition, do you have difficulty doing errands alone such as visiting a doctor's office or shopping? Answer Date of Assessment Author Status No 07/30/2020 10:46 PM ADMINISTRATIVE ASSISTANT COORDINATOR Nella Le RN Active documented as of this encounter Mental Status * Because of a physical, mental, or emotional condition, do you have serious difficulty concentrating, remembering, or making decisions? Answer Entry Date Author Status No 07/30/2020 10:46 PM ADMINISTRATIVE ASSISTANT COORDINATOR Nella Le RN Active documented in this encounter Plan of Treatment Upcoming Encounters Date Type Department Care Team (Late st Contact Info) Description 09/25/2024 11:30 AM ADMINISTRATIVE ASSISTANT COORDINATOR Appointment [facility] [address] [facility] [place] [address] Roberta Alex MD [address] [place] [phone] 09/25/2024 11:40 AM ADMINISTRATIVE ASSISTANT COORDINATOR Office Visit [facility] [address] [facility] [place] [address] Roberta Alex MD [address] [place] [address] documented as of this encounter Visit Diagnoses Not on filedocumented in this encounter Additional Health Concerns Infection Onset Date Last Indicated Resolved Time MRSA 06/05/2021 06/05/2021 documented as of this encounter Care Teams Associate Sales Representative Relationship Specialty Start Date End Date Alejandro Blevins MD PCP - General FAMILY PRACTICE 12/10/19 documented as of this encounter
--- OUTSIDE RECORDS SUMMARY | 2024-07-11 09:56 | XMS_ITS | Encounter Summary ---
Author Organization [facility] Address [address] [place] [address]. [place] [address] [place] [address] Care Team Providers Care Broommaker Name Role Phone Alejandro Blevins MD Primary Care Provider [phone] Reason for Visit * Reason Comments Follow Up Thrombocytopenia Lab Results Encounter Details Date Type Department Care Team (Late st Contact Info) Description 12/07/2022 10:40 AM CDT Office Visit [address] [place] [address] Roberta Alex MD [address] [place] [address] Follow Up (Thrombocytopenia); Lab Results Social History [...] on file Legal Sex Female 11:30 PM GAS CUTTING MACHINE OPERATOR Gender Identity Female 11/10/2021 3:09 [...] Assessment Author Status No 07/30/2020 10:48 PM GAS CUTTING MACHINE OPERATOR Acti ve * RETIRED Are you blind or do you have serious difficulty seeing, even when wearing glasses? Answer Date of Assessment Author Status No 07/30/2020 10:46 PM GAS CUTTING MACHINE OPERATOR Acti ve * Do you [...] no care. 1. ITP: Previously followed with [facility] integrated campaign manager Dr. Dick Bonilla. 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 She states she loves her job and [...] Current Outpatient Medications Medication Sig Dispense Refill invhufa-qrxadekytdodp-ghdigrim (EXCEDRIN MIGRAINE) 250-250-65 MG tablet Take 1 [...] st Contact Info) Description 09/25/2024 11:30 AM GAS CUTTING MACHINE OPERATOR Appointment [facility] [address] [facility] [place] [address] Roberta Alex MD [address] [place], [place] [id number] 09/25/2024 11:40 AM GAS CUTTING MACHINE OPERATOR Office Visit [facility] [address] [facility] [place] [address] Roberta Alex MD [address] [place] [address] documented as of this encounter Visit Diagnoses Diagnosis Acute ITP ([facility]/HCC [facility]/HCC)- Primary Immune thrombocytopenic purpura Iron deficiency Iron deficiency anemia, unspecified Other fatigue documented in this encounter Additional Health Concerns Infection Onset Date Last Indicated Resolved Time MRSA 06/05/2021 06/05/2021 documented as of this encounter Care Teams Broommaker Relationship Specialty Start Date End Date Alejandro Blevins MD PCP - General FAMILY PRACTICE 12/10/19 documented as of this encounter
--- OUTSIDE RECORDS SUMMARY | 2024-07-11 09:56 | XMS_ITS | Encounter Summary ---
Author Organization [facility] Address [facility] [facility] [place] [address] [place] [address] Care Team Providers Care Senior Specialist Name Role Phone Alejandro Blevins MD Primary Care Provider Encounter Details Date Type Department Care Team (Late st Contact Info) Description 11/29/2022 Orders Only [address] [place] [address] Roberta Alex MD [address] [place] [address] Social History Tobacco Use Types Packs/Day Years Used Date Smoking Tobacco: Every Day Cigarettes Smokeless Tobacco: Never Alcohol Use Standard Drinks/Week Comments Not Currently 0 (1 standard drink = 0.6 oz pur e alcohol) Comments No Sex and Gender Information Value Date Recorded Sex Assigned at Not on file Legal Sex Female 11:30 PM PRESIDENT AND CEO Gender Identity Female 11/10/2021 3:09 PM CDT Sexual Orientation Straight 11/10/2021 3: 09 PM CDT documented as of this encounter Functional Status * RETIRED Are you deaf or do you have serious difficulty hearing Answer Date of Assessment Author Status No 07/30/2020 10:48 PM PRESIDENT AND CEO Acti ve * RETIRED Are you blind or do you have serious difficulty seeing, even when wearing glasses? Answer Date of Assessment Author Status No 07/30/2020 10:46 PM PRESIDENT AND CEO Acti ve * Do you have serious difficulty walking or climbing stairs? Answer Date of Assessment Author Status No 07/30/2020 10:46 PM PRESIDENT AND CEO Bringuet, Nella C, RN Active * Do you have difficulty dressing or bathing? Answer Date of Assessment Author Status No 07/30/2020 10:46 PM PRESIDENT AND CEO Nella Le RN Active * Because of [...] st Contact Info) Description 09/25/2024 11:30 AM PRESIDENT AND CEO Appointment [facility] [address] [place] [address] Roberta Alex MD [address] [place] [address] 09/25/2024 11:40 AM PRESIDENT AND CEO Office Visit [facility] [address] [place] [address] Roberta Alex MD [address] [place] [address] documented as of this encounter Results * FERRITIN (11/29/2022 4:37 PM CDT) FERRITIN 13.9 8 - 252 NG/ML 11/29/2022 5:21 PM CDT [facility] 11/29/2022 4:37 PM CDT Roberta Alex MD LABORATORY Final Result [facility] [address] [place] [address], * (ABNORMAL) IRON SAT PANEL (IRON,IBC,%SAT) (11/29/2022 4:37 PM CDT) IRON 47(L) 50 - 170 MCG/DL 11/29/2022 5:17 PM CDT [facility] IRON BINDING CAPACITY 324 250 - 450 MCG/DL 11/29/2022 5:17 PM CDT [facility] IRON SATURATION 15 % 5:17 PM CDT [facility] Comment:REFERENCE RANGE NOT ESTABLISHED 11/29/2022 4:37 PM CDT us Roberta Alex MD LABORATORY Final Result [facility] [address] [place] [place] [address], * (ABNORMAL) CBC W/DIFF AUTOMATED (11/29/2022 4:37 PM CDT) WBC 7.17 4.00 - 10.80 x10'3/uL 11/29/2022 4:52 PM CDT [facility] RBC 5.00 4.10 - 5.40 x10'6/uL 11/29/2022 4:52 PM CDT [facility] HGB 14.0 12.0 - 16.0 G/DL 11/29/2022 4:52 PM CDT [facility] HCT 44.9 36.0 - 47.0 % 11/29/2022 4:52 PM CDT [facility] MCV 89.8 78.0 - 100.0 FL 11/29/2022 4:52 PM CDT [facility] MCH 28.0 27.0 - 31.0 PG 11/29/2022 4:52 PM CDT [facility] MCHC 31.2(L) 33.0 - 36.0 G/DL 11/29/2022 4:52 PM CDT [facility] RDW 13.4 11.5 - 14.5 % 11/29/2022 4:52 PM CDT [facility] PLT 42(L) 150 - 350 x10'3/uL 11/29/2022 4:52 PM CDT [facility] MPV RESULTS NOT AVAILABLE 7.4 - 10.4 FL 11/29/2022 4:52 PM CDT [facility] CBC COMMENT NORMAL REFERENCE RANGE NOT ESTABLISHED FOR THE PROPORTIONAL LEUKOCYTE DIFFERENTIAL. 11/29/2022 4:52 PM CDT [facility] NEUTROPHILS % 67.0 % 11/29/2022 5:14 PM CDT [facility] LYMPHOCYTES % 24.8 % 11/29/2022 5:14 PM CDT [facility] MONOCYTES % 4.6 % 11/29/2022 5:14 PM CDT [facility] EOSINOPHILS % 2.9 % 11/29/2022 5:14 PM CDT [facility] BASOPHILS % 0.6 % 11/29/2022 5:14 PM CDT [facility] IMMATURE GRANS % 0.1 % 11/30/19 5:14 PM CDT [facility] NRBC 0.0 % 11/29/2022 5:14 PM CDT [facility] ABS. NEUTROPHILS 4.80 1.60 - 8.30 x10'3/uL 11/29/2022 5:14 PM CDT [facility] ABS. LYMPHOCYTES 1.78 0.80 - 4.70 x10'3/uL 11/29/2022 5:14 PM CDT [facility] ABS. MONOCYTES 0.33 0.00 - 1.50 x10'3/uL 11/29/2022 5:14 PM CDT [facility] ABS. EOSINOPHILS 0.21 0.00 - 0.40 x10'3/uL 11/29/2022 5:14 PM CDT [facility] ABS. BASOPHILS 0.04 0.00 - 0.20 x10'3/uL 11/29/2022 5:14 PM CDT [facility] ABS. IMMATURE GRANULOCYTES 0.01 0.00 - 0.03 x10'3/uL 11/29/2022 5:14 PM CDT [facility] ABS. NUCLEATED RBC'S 0.00 0.00 x10'3/uL 11/29/2022 5:14 PM CDT [facility] PLT MORPH. DECREASED 11/29/2022 5:14 PM CDT [facility] RBC MORPHOLOGY NORMAL 11/29/2022 5:14 PM CDT [facility] 11/29/2022 4:37 PM CDT Roberta Alex MD LABORATORY Final Result [facility] [address] [place] [address], documented in this encounter Visit Diagnoses Diagnosis Thrombocytopenia (CMS/HCC)- Primary Thrombocytopenia, unspecified documented in this encounter Additional Health Concerns Infection Onset Date Last Indicated Resolved Time MRSA 06/05/2021 06/05/2021 documented as of this encounter Care Teams Senior Specialist Relationship Specialty Start Date End Date Alejandro Blevins MD PCP - General FAMILY PRACTICE 12/10/19 documented as of this encounter
--- OUTSIDE RECORDS SUMMARY | 2024-07-11 09:56 | XMS_ITS | Encounter Summary ---
Author Organization [facility] Address [address] [place] [address]. [place], [place] [address] [place] [address] Care Team Providers Care Armoured Car Escort Name Role Phone Alejandro Blevins MD Primary Care Provider [phone] Encounter Details Date Type Department Care Team [...] on file Legal Sex Female 11:30 PM OIL WELL FISHING TOOL OPERATOR Gender Identity Female 11/10/2021 3:09 PM [...] Assessment Author Status No 07/30/2020 10:48 PM OIL WELL FISHING TOOL OPERATOR Acti ve * RETIRED Are you blind or do you have serious difficulty seeing, even when wearing glasses? Answer Date of Assessment Author Status No 07/30/2020 10:46 PM OIL WELL FISHING TOOL OPERATOR Acti ve * Do you have serious difficulty walking or climbing stairs? Answer Date of Assessment Author Status No 07/30/2020 10:46 PM OIL WELL FISHING TOOL OPERATOR Nella Le RN Active * Do you have difficulty dressing or bathing? Answer Date of Assessment Author Status No 07/30/2020 10:46 PM OIL WELL FISHING TOOL OPERATOR Nella Le RN Active * Because of a physical, mental, or emotional condition, do you have difficulty doing errands alone such as visiting a doctor's office or shopping? Answer Date of Assessment Author Status No 07/30/2020 10:46 PM OIL WELL FISHING TOOL OPERATOR Nella Le RN Active documented as of this encounter Mental Status * Because of a physical, mental, or emotional condition, do you have serious difficulty concentrating, remembering, or making decisions? Answer Entry Date Author Status No 07/30/2020 10:46 PM OIL WELL FISHING TOOL OPERATOR Nella Le RN Active documented in this encounter Plan of Treatment Upcoming Encounters Date Type Department Care Team (Late st Contact Info) Description 09/25/2024 11:30 AM OIL WELL FISHING TOOL OPERATOR Appointment [facility] [address] [place] [address] Roberta Alex MD [address] [place] [phone] 09/25/2024 11:40 AM OIL WELL FISHING TOOL OPERATOR Office Visit [facility] [address] [place] [address] Roberta Alex MD [address] [place] [address] documented as of this encounter Visit Diagnoses Not on filedocumented in this encounter Additional Health Concerns Infection Onset Date Last Indicated Resolved Time MRSA 06/05/2021 06/05/2021 documented as of this encounter Care Teams Armoured Car Escort Relationship Specialty Start Date End Date Alejandro Blevins MD PCP - General FAMILY PRACTICE 12/10/19 documented as of this encounter
--- OUTSIDE RECORDS SUMMARY | 2024-07-11 09:56 | XMS_ITS | Encounter Summary ---
Author Organization [facility] Address [address] [place] [address]. [place] [address] [place] [address] Care Team Providers Care Supply Chain Assistant Name Role Phone Alejandro Blevins MD Primary Care Provider [phone] Encounter Details Date Type Department Care Team (Late st Contact Info) Description 11/30/2022 [employer] Message Enc [address] [place] [address] Roberta Alex MD [address] [place] [address] Paperwork Social History Tobacco Use Types Packs/Day Years Used Date Smoking Tobacco: Every Day Cigarettes Smokeless Tobacco: Never Alcohol Use Standard Drinks/Week Comments Not Currently 0 (1 standard drink = 0.6 oz pur e alcohol) Comments No Sex and Gender Information Value Date Recorded Sex Assigned at Not on file Legal Sex Female 11:30 PM INTERVENTIONAL PHYSIATRIST Gender Identity Female 11/10/2021 3:09 PM CDT [...] Assessment Author Status No 07/30/2020 10:48 PM INTERVENTIONAL PHYSIATRIST Acti ve * RETIRED Are you blind or do you have serious difficulty seeing, even when wearing glasses? Answer Date of Assessment Author Status No 07/30/2020 10:46 PM INTERVENTIONAL PHYSIATRIST Acti ve * Do you have serious [...] st Contact Info) Description 09/25/2024 11:30 AM INTERVENTIONAL PHYSIATRIST Appointment [facility] [address] [place] [address] Roberta Alex MD [address] [place] [address] 09/25/2024 11:40 AM INTERVENTIONAL PHYSIATRIST Office Visit [facility] [address] [place] [address] Roberta Alex MD [address] [place] [address] documented as of this encounter Visit Diagnoses Not on filedocumented in this encounter Additional Health Concerns Infection Onset Date Last Indicated Resolved Time MRSA 06/05/2021 06/05/2021 documented as of this encounter Care Teams Supply Chain Assistant Relationship Specialty Start Date End Date Alejandro Blevins MD PCP - General FAMILY PRACTICE 12/10/19 documented as of this encounter
--- OUTSIDE RECORDS SUMMARY | 2024-07-11 09:56 | XMS_ITS | Encounter Summary ---
Author Organization [facility] Address [address] [place] [address]. [place] [address] [place] [address] Care Team Providers Care Student Services Advisor Name Role Phone Alejandro Blevins MD Primary Care Provider Encounter Details Date Type Department Care Team (Late st Contact Info) Description 11/29/2022 [employer] Message Enc [address] [place] [address] Roberta Alex MD [address] [place] [address] Note for work Social History Tobacco Use Types Packs/Day Years Used Date Smoking Tobacco: Every Day Cigarettes Smokeless Tobacco: Never Alcohol Use Standard Drinks/Week Comments Not Currently 0 (1 standard drink = 0.6 oz pur e alcohol) Comments No Sex and Gender Information Value Date Recorded Sex Assigned at Not on file Legal Sex Female 11:30 PM TAX PREPARER Gender Identity Female 11/10/2021 3:09 PM CDT [...] Assessment Author Status No 07/30/2020 10:48 PM TAX PREPARER Acti ve * RETIRED Are you blind or do you have serious difficulty seeing, even when wearing glasses? Answer Date of Assessment Author Status No 07/30/2020 10:46 PM TAX PREPARER Acti ve * Do you have serious [...] Progress Notes * Roberta Alex MD - 12/03/2022 2:39 PM CDT We can provide at the time of her clinic appt- work excuse for a few days- considering iron deficiency and worsening ITP. Repeat labs at my [facility] documented in this encounter Plan of Treatment Upcoming Encounters Date Type Department Care Team (Late st Contact Info) Description 09/25/2024 11:30 AM TAX PREPARER Appointment [facility] [place] [address] Roberta Alex MD [address] [place] [address] 09/25/2024 11:40 AM TAX PREPARER Office Visit [facility] [place] [address] [address] Roberta Alex MD [address] [place] [address] documented as of this encounter Visit Diagnoses Not on filedocumented in this encounter Additional Health Concerns Infection Onset Date Last Indicated Resolved Time MRSA 06/05/2021 06/05/2021 documented as of this encounter Care Teams Student Services Advisor Relationship Specialty Start Date End Date Alejandro Blevins MD PCP - General FAMILY PRACTICE 12/10/19 documented as of this encounter
--- OUTSIDE RECORDS SUMMARY | 2024-07-11 09:56 | XMS_ITS | Encounter Summary ---
Author Organization [facility] Address [address] [place] [address]. [place] [address] [place] [address] Care Team Providers Care Pattern Marking Supervisor Name Role Phone Alejandro Blevins MD Primary Care Provider [phone] Reason for Visit * Reason Onset Date Comments Concerns 11/29/2022 Encounter Details Date Type Department Care Team ([facility] st Contact Info) Description 11/29/[address] [place] [address] Roberta Alex MD [address] [place] [address] Concerns Social History Tobacco Use Types Packs/Day Years Used Date Smoking Tobacco: Every Day Cigarettes Smokeless Tobacco: Never Alcohol Use Standard Drinks/Week Comments Not Currently 0 (1 standard drink = 0.6 oz pur e alcohol) Comments No Sex and Gender Information Value Date Recorded Sex Assigned at Not on file Legal Sex Female 11:30 PM SPECIAL EFFECTS PERSON Gender Identity Female 11/10/2021 3:09 PM CDT Sexual Orientation Straight 11/10/2021 3: 09 PM CDT documented as of this encounter Functional Status * RETIRED Are you deaf or do you have serious difficulty hearing Answer Date of Assessment Author Status No 07/30/2020 10:48 PM SPECIAL EFFECTS PERSON Acti ve * RETIRED Are you blind or do you have serious difficulty seeing, even when wearing glasses? Answer Date of Assessment Author Status No 07/30/2020 10:46 PM SPECIAL EFFECTS PERSON Acti ve * Do you have serious [...] in advising she was in ER in [place] yesterday 11/28/2022. Patient stated that she had lab work drawn (this has been scanned into [employer]) and that her PLTs were low and [...] Type Department Care Team (Late st Contact [facility]) Description 09/25/2024 11:30 AM SPECIAL EFFECTS PERSON Appointment [facility] [address] [place] [address] Roberta Alex MD [address] [place] [address] 09/25/2024 11:40 AM SPECIAL EFFECTS PERSON Office Visit [facility] [address] [place] [address] Roberta Alex MD [address] [place] [address] documented as of this encounter Visit Diagnoses Not on filedocumented in this encounter Additional Health Concerns Infection Onset Date Last Indicated Resolved Time MRSA 06/05/2021 06/05/2021 documented as of this encounter Care Teams Pattern Marking Supervisor Relationship Specialty Start Date End Date Alejandro Blevins MD PCP - General FAMILY PRACTICE 12/10/19 documented as of this encounter
--- OUTSIDE RECORDS SUMMARY | 2024-07-11 09:56 | XMS_ITS | Encounter Summary ---
Author Organization [facility] Address [facility] [place] [address] [place] [address] Care Team Providers Care Drying Oven Attendant Name Role Phone Alejandro Blevins MD Primary Care Provider [phone] Encounter Details Date Type Department Care Team (Late st Contact Info) Description 12/07/2022 Orders Only [address] [place] [address] Roberta Alex MD [address] [place] [address] Social History Tobacco Use Types Packs/Day Years Used Date Smoking Tobacco: Every Day Cigarettes Smokeless Tobacco: Never Alcohol Use Standard Drinks/Week Comments Not Currently 0 (1 standard drink = 0.6 oz pur e alcohol) Comments No Sex and Gender Information Value Date Recorded Sex Assigned at Not on file Legal Sex Female 11:30 PM MARINE BIOLOGIST Gender Identity Female 11/10/2021 3:09 PM CDT [...] Assessment Author Status No 07/30/2020 10:48 PM MARINE BIOLOGIST Acti ve * RETIRED Are you blind or do you have serious difficulty seeing, even when wearing glasses? Answer Date of Assessment Author Status No 07/30/2020 10:46 PM MARINE BIOLOGIST Acti ve * Do you have serious [...] Date Type Department Care Team (Late st [facility]) Description 09/25/2024 11:30 AM MARINE BIOLOGIST Appointment [facility] [address] [place] [address] Roberta Alex MD [address] [place] [address] 09/25/2024 11:40 AM MARINE BIOLOGIST Office Visit [facility] [address] [place] [address] Roberta Alex MD [address] [place] [address] documented as of this encounter Results * VITAMIN B-12 (12/07/2022 10:15 AM CDT) VITAMIN B12 S/P/B 461 193 - 986 PG/ML 12/08/2022 3:47 PM CDT [facility] 12/07/2022 10:1 5 AM CDT Roberta Alex MD LABORATORY Final Result [facility] [address] [place] [address], [id number] * COMPREHENSIVE METABOLIC PANEL (12/07/2022 10:15 AM [...] - 10.5 MG/DL 12/07/2022 3:38 PM CDT [facility] BILIRUBIN TOTAL S/P/B 0.3 0.2 - 1.0 MG/DL 12/07/2022 3:38 PM CDT [facility] Comment: THIS ASSAY IS NOT RECOMMENDED FOR PATIENTS UNDERGOING TREATMENT WITH ELTROMBOPAG DUE TO THE POTENTIAL FOR FALSELY ELEVATED RESULTS. ALKALINE PHOSPHATASE S/P/B 70 37 - 98 U/L 12/07/2022 3:38 PM CDT [facility] AST 22 15 - 37 U/L 12/07/2022 3:38 PM CDT [facility] Comment:MILD HEMOLYSIS, RESU LT MAY BE AFFECTED. ALT 16 14 - 59 U/L 12/07/2022 3:38 PM CDT [facility] TOTAL PROTEIN S/P/B 7.4 6.4 - 8.2 G/DL 12/07/2022 3:38 PM CDT [facility] ALBUMIN S/P/B 3.8 3.4 - 5.0 G/DL 12/07/2022 3:38 PM CDT [facility] ANION GAP 10.9 5.0 - 15.0 MMOL/L 12/07/2022 3:38 PM CDT [facility] OSMOLALITY (CALC) 287 MOSM/KG 023 3:38 PM CDT [facility] Comment:REFERENCE RANGE NOT ESTABLISHED GFR ESTIMATE >90 >89 ML/MIN/1. 73 M2 12/07/2022 3:38 PM CDT [facility] GFR NOTES GFR REFERENCE S: 12/07/2022 3:38 PM CDT [facility] Comment: THE ESTIMATED GFR IS CALCULATED [...] [facility] [address] [place] [address], documented in this encounter Visit Diagnoses Diagnosis Thrombocytopenia (CMS/HCC)- Primary Thrombocytopenia, unspecified documented in this encounter Additional Health Concerns Infection Onset Date Last Indicated Resolved Time MRSA 06/05/2021 06/05/2021 documented as of this encounter Care Teams Drying Oven Attendant Relationship Specialty Start Date End Date Alejandro Blevins MD PCP - General FAMILY PRACTICE 12/10/19 documented as of this encounter
--- OUTSIDE RECORDS SUMMARY | 2024-07-11 09:56 | XMS_ITS | Encounter Summary ---
Author Organization [facility] Address [address] [place] [address]. [place] [address] [place] [address] Care Team Providers Care Mutton Puncher Name Role Phone Alejandro Blevins MD Primary Care Provider [phone] Encounter Details Date Type Department Care Team (Late st Contact Info) Description 12/07/2022 Orders Only [address] [place] [address] Carey Pang, APNP [address] [place] [id number] Social History Tobacco Use Types Packs/Day Years Used Date Smoking Tobacco: Every Day Cigarettes Smokeless Tobacco: Never Alcohol Use Standard Drinks/Week Comments Not Currently 0 (1 standard drink = 0.6 oz pur e alcohol) Comments No Sex and Gender Information Value Date Recorded Sex Assigned at Not on file Legal Sex Female 11:30 PM ORTHODONTIST Gender Identity Female 11/10/2021 3:09 PM CDT [...] Assessment Author Status No 07/30/2020 10:48 PM ORTHODONTIST Acti ve * RETIRED Are you blind or do you have serious difficulty seeing, even when wearing glasses? Answer Date of Assessment Author Status No 07/30/2020 10:46 PM ORTHODONTIST Acti ve * Do you have serious [...] Date Type Department Care Team (Late st [facility] Info) Description 09/25/2024 11:30 AM ORTHODONTIST Appointment [facility] [address] [place] [address] Roberta Alex MD [address] [place] [address] 09/25/2024 11:40 AM ORTHODONTIST Office Visit [facility] [address] [place] [address] Roberta Alex MD [address] [place] [address] documented as of this encounter Results * (ABNORMAL) CBC W/DIFF AUTOMATED (01/03/2023 12:55 PM CDT) WBC 10.60 4.00 - 10.80 x10'3/uL 01/03/2023 1:54 PM CDT [facility] RBC 4.97 4.10 - 5.40 x10'6/uL 01/03/2023 1:54 PM CDT [facility] HGB 14.4 12.0 - 16.0 G/DL 01/03/2023 1:54 PM CDT [facility] HCT 44.5 36.0 - 47.0 % 01/03/2023 1:54 PM CDT [facility] MCV 89.5 78.0 - 100.0 FL 01/03/2023 1:54 PM CDT [facility] MCH 29.0 27.0 - 31.0 PG 01/03/2023 1:54 PM CDT [facility] MCHC 32.4(L) 33.0 - 36.0 G/DL 01/03/2023 1:54 PM CDT [facility] RDW 12.7 11.5 - 14.5 % 01/03/2023 1:54 PM CDT [facility] PLT 35(L) 150 - 350 x10'3/uL 01/03/2023 1:54 PM CDT [facility] MPV RESULTS NOT AVAILABLE 7.4 - 10.4 FL 01/03/2023 1:54 PM CDT [facility] CBC COMMENT NORMAL REFERENCE RANGE NOT ESTABLISHED FOR THE PROPORTIONAL LEUKOCYTE DIFFERENTIAL. 01/03/2023 1:54 PM CDT [facility] NEUTROPHILS % 71.6 % 01/03/2023 1:56 PM CDT [facility] LYMPHOCYTES % 18.0 % 01/03/2023 1:56 PM CDT [facility] MONOCYTES % 5.3 % 01/03/2023 1:56 PM CDT [facility] EOSINOPHILS % 4.2 % 01/03/2023 1:56 PM CDT [facility] BASOPHILS % 0.6 % 01/03/2023 1:56 PM CDT [facility] IMMATURE GRANS % 0.3 % 01/04/20 1:56 PM CDT [facility] NRBC 0.0 % 01/03/2023 1:56 PM CDT [facility] ABS. NEUTROPHILS 7.59 1.60 - 8.30 x10'3/uL 01/03/2023 1:56 PM CDT [facility] ABS. LYMPHOCYTES 1.91 0.80 - 4.70 x10'3/uL 01/03/2023 1:56 PM CDT [facility] ABS. MONOCYTES 0.56 0.00 - 1.50 x10'3/uL 01/03/2023 1:56 PM CDT [facility] ABS. EOSINOPHILS 0.45(H) 0.00 - 0.40 x10'3/uL 01/03/2023 1:56 PM CDT [facility] ABS. BASOPHILS 0.06 0.00 - 0.20 x10'3/uL 01/03/2023 1:56 PM CDT [facility] ABS. IMMATURE GRANULOCYTES 0.03 0.00 - 0.03 x10'3/uL 01/03/2023 1:56 PM CDT [facility] ABS. NUCLEATED RBC'S 0.00 0.00 x10'3/uL 01/03/2023 1:56 PM CDT [facility] PLT MORPH. DECREASED 01/03/2023 1:56 PM CDT [facility] RBC MORPHOLOGY NORMAL 01/03/2023 1:56 PM CDT [facility] 01/03/2023 12:5 5 PM CDT us Carey TUBBSNP LABORATORY Final Res ult [facility] [address] [place] [address], * (ABNORMAL) CBC W/DIFF AUTOMATED (12/27/2022 12:32 PM CDT) WBC 11.19(H) 4.00 - 10.80 x10'3/uL 12/27/2022 1:21 PM CDT [facility] RBC 4.82 4.10 - 5.40 x10'6/uL 12/27/2022 1:21 PM CDT [facility] HGB 13.9 12.0 - 16.0 G/DL 12/27/2022 1:21 PM CDT [facility] HCT 43.6 36.0 - 47.0 % 12/27/2022 1:21 PM CDT [facility] MCV 90.5 78.0 - 100.0 FL 12/27/2022 1:21 PM CDT [facility] MCH 28.8 27.0 - 31.0 PG 12/27/2022 1:21 PM CDT [facility] MCHC 31.9(L) 33.0 - 36.0 G/DL 12/27/2022 1:21 PM CDT [facility] RDW 12.7 11.5 - 14.5 % 12/27/2022 1:21 PM CDT [facility] PLT 31(L) 150 - 350 x10'3/uL 12/27/2022 1:21 PM CDT [facility] Comment: CALLED TO [facility]UN AT [facility] AT 1320 READ BACK AND VERIFIED MPV RESULTS NOT AVAILABLE 7.4 - 10.4 FL 12/27/2022 1:21 PM CDT [facility] CBC COMMENT NORMAL REFERENCE RANGE NOT ESTABLISHED FOR THE PROPORTIONAL LEUKOCYTE DIFFERENTIAL. 12/27/2022 1:21 PM CDT [facility] NEUTROPHILS % 72.8 % 12/27/2022 1:29 PM CDT [facility] LYMPHOCYTES % 16.5 % 12/27/2022 1:29 PM CDT [facility] MONOCYTES % 4.8 % 12/27/2022 1:29 PM CDT [facility] EOSINOPHILS % 5.0 % 12/27/2022 1:29 PM CDT [facility] BASOPHILS % 0.7 % 12/27/2022 1:29 PM CDT [facility] IMMATURE GRANS % 0.2 % 12/28/19 1:29 PM CDT [facility] NRBC 0.0 % 12/27/2022 1:29 PM CDT [facility] ABS. NEUTROPHILS 8.14 1.60 - 8.30 x10'3/uL 12/27/2022 1:29 PM CDT [facility] ABS. LYMPHOCYTES 1.85 0.80 - 4.70 x10'3/uL 12/27/2022 1:29 PM CDT [facility] ABS. MONOCYTES 0.54 0.00 - 1.50 x10'3/uL 12/27/2022 1:29 PM CDT [facility] ABS. EOSINOPHILS 0.56(H) 0.00 - 0.40 x10'3/uL 12/27/2022 1:29 PM CDT [facility] ABS. BASOPHILS 0.08 0.00 - 0.20 x10'3/uL 12/27/2022 1:29 PM CDT [facility] ABS. IMMATURE GRANULOCYTES 0.02 0.00 - 0.03 x10'3/uL 12/27/2022 1:29 PM CDT [facility] ABS. NUCLEATED RBC'S 0.00 0.00 x10'3/uL 12/27/2022 1:29 PM CDT [facility] PLT MORPH. DECREASED 12/27/2022 1:29 PM CDT [facility] RBC MORPHOLOGY NORMAL 12/27/2022 1:29 PM CDT [facility] 12/27/2022 12:3 2 PM CDT us Carey CASTELLANOS LABORATORY Final Res ult [facility] [place] [address], * (ABNORMAL) CBC W/DIFF AUTOMATED (12/23/2022 11:26 AM CDT) WBC 6.65 4.00 - 10.80 x10'3/uL 12/23/2022 12:43 PM CDT [facility] RBC 4.60 4.10 - 5.40 x10'6/uL 12/23/2022 12:43 PM CDT [facility] HGB 13.0 12.0 - 16.0 G/DL 12/23/2022 12:43 PM CDT [facility] HCT 41.5 36.0 - 47.0 % 12/23/2022 12:43 PM CDT [facility] MCV 90.2 78.0 - 100.0 FL 12/23/2022 12:43 PM CDT [facility] MCH 28.3 27.0 - 31.0 PG 12/23/2022 12:43 PM CDT [facility] MCHC 31.3(L) 33.0 - 36.0 G/DL 12/23/2022 12:43 PM CDT [facility] RDW 12.8 11.5 - 14.5 % 12/23/2022 12:43 PM CDT [facility] PLT 30(L) 150 - 350 x10'3/uL 12/23/2022 12:43 PM CDT [facility] MPV RESULTS NOT AVAILABLE 7.4 - 10.4 FL 12/23/2022 12:43 PM CDT [facility] CBC COMMENT NORMAL REFERENCE RANGE NOT ESTABLISHED FOR THE PROPORTIONAL LEUKOCYTE DIFFERENTIAL. 12/23/2022 12:43 PM CDT [facility] NEUTROPHILS % 55.9 % 12/23/2022 12:43 PM CDT [facility] LYMPHOCYTES % 27.5 % 12/23/2022 12:43 PM CDT [facility] MONOCYTES % 7.2 % 12/23/2022 12:43 PM CDT [facility] EOSINOPHILS % 8.3 % 12/23/2022 12:43 PM CDT [facility] BASOPHILS % 0.9 % 12/23/2022 12:43 PM CDT [facility] IMMATURE GRANS % 0.2 % 12/24/19 12:43 PM CDT [facility] NRBC 0.0 % 12/23/2022 12:43 PM CDT [facility] ABS. NEUTROPHILS 3.72 1.60 - 8.30 x10'3/uL 12/23/2022 12:43 PM CDT [facility] ABS. LYMPHOCYTES 1.83 0.80 - 4.70 x10'3/uL 12/23/2022 12:43 PM CDT [facility] ABS. MONOCYTES 0.48 0.00 - 1.50 x10'3/uL 12/23/2022 12:43 PM CDT [facility] ABS. EOSINOPHILS 0.55(H) 0.00 - 0.40 x10'3/uL 12/23/2022 12:43 PM CDT [facility] ABS. BASOPHILS 0.06 0.00 - 0.20 x10'3/uL 12/23/2022 12:43 PM CDT [facility] ABS. IMMATURE GRANULOCYTES 0.01 0.00 - 0.03 x10'3/uL 12/23/2022 12:43 PM CDT [facility] ABS. NUCLEATED RBC'S 0.00 0.00 x10'3/uL 12/23/2022 12:43 PM CDT [facility] PLT MORPH. DECREASED 12/23/2022 12:43 PM CDT [facility] RBC MORPHOLOGY NORMAL 12/23/2022 12:43 PM CDT [facility] 12/23/2022 11:2 6 AM CDT Carey CASTELLANOS [facility]ORAT[facility] Final Res ult [facility] [address] [place] [address], * (ABNORMAL) CBC W/DIFF AUTOMATED (12/13/2022 11:43 AM CDT) WBC 8.96 4.00 - 10.80 x10'3/uL 12/13/2022 11:54 AM CDT [facility] RBC 4.94 4.10 - 5.40 x10'6/uL 12/13/2022 11:54 AM CDT [facility] HGB 14.3 12.0 - 16.0 G/DL 12/13/2022 11:54 AM CDT [facility] HCT 44.3 36.0 - 47.0 % 12/13/2022 11:54 AM CDT [facility] MCV 89.7 78.0 - 100.0 FL 12/13/2022 11:54 AM CDT [facility] MCH 28.9 27.0 - 31.0 PG 12/13/2022 11:54 AM CDT [facility] MCHC 32.3(L) 33.0 - 36.0 G/DL 12/13/2022 11:54 AM CDT [facility] RDW 12.9 11.5 - 14.5 % 12/13/2022 11:54 AM CDT [facility] PLT 33(L) 150 - 350 x10'3/uL 12/13/2022 11:54 AM CDT [facility] MPV RESULTS NOT AVAILABLE 7.4 - 10.4 FL 12/13/2022 11:54 AM CDT [facility] CBC COMMENT NORMAL REFERENCE RANGE NOT ESTABLISHED FOR THE PROPORTIONAL LEUKOCYTE DIFFERENTIAL. 12/13/2022 11:54 AM CDT [facility] NEUTROPHILS % 67.9 % 12/13/2022 12:07 PM CDT [facility] LYMPHOCYTES % 22.0 % 12/13/2022 12:07 PM CDT [facility] MONOCYTES % 4.7 % 12/13/2022 12:07 PM CDT [facility] EOSINOPHILS % 4.4 % 12/13/2022 12:07 PM CDT [facility] BASOPHILS % 0.8 % 12/13/2022 12:07 PM CDT [facility] IMMATURE GRANS % 0.2 % 12/14/19 12:07 PM CDT [facility] NRBC 0.0 % 12/13/2022 12:07 PM CDT [facility] ABS. NEUTROPHILS 6.09 1.60 - 8.30 x10'3/uL 12/13/2022 12:07 PM CDT [facility] ABS. LYMPHOCYTES 1.97 0.80 - 4.70 x10'3/uL 12/13/2022 12:07 PM CDT [facility] ABS. MONOCYTES 0.42 0.00 - 1.50 x10'3/uL 12/13/2022 12:07 PM CDT [facility] ABS. EOSINOPHILS 0.39 0.00 - 0.40 x10'3/uL 12/13/2022 12:07 PM CDT [facility] ABS. BASOPHILS 0.07 0.00 - 0.20 x10'3/uL 12/13/2022 12:07 PM CDT [facility] ABS. IMMATURE GRANULOCYTES 0.02 0.00 - 0.03 x10'3/uL 12/13/2022 12:07 PM CDT [facility] ABS. NUCLEATED RBC'S 0.00 0.00 x10'3/uL 12/13/2022 12:07 PM CDT [facility] PLT MORPH. DECREASED 12/13/2022 12:07 PM CDT [facility] Comment:LARGE PLATELETS RBC MORPHOLOGY NORMAL 12/13/2022 12:07 PM CDT [facility] 12/13/2022 11:4 3 AM CDT Carey [facility] Final Res ult [facility] [address] [place] [address], documented in this encounter Visit Diagnoses Diagnosis Thrombocytopenia (CMS/HCC)- Primary Thrombocytopenia, unspecified documented in this encounter Additional Health Concerns Infection Onset Date Last Indicated Resolved Time MRSA 06/05/2021 06/05/2021 documented as of this encounter Care Teams Mutton Puncher Relationship Specialty Start Date End Date Alejandro Blevins MD PCP - General FAMILY PRACTICE 12/10/19 documented as of this encounter
--- OUTSIDE RECORDS SUMMARY | 2024-07-11 09:56 | XMS_ITS | Encounter Summary ---
Author Organization [facility] Address [address] [place] [address]. [place], [place] [address] [place] [address] Care Team Providers Care Rate Inserter Name Role Phone Alejandro Blevins MD Primary Care Provider [phone] Reason for Visit * Reason Onset Date Comments Disability Form 11/02/2022 Encounter Details Date Type Department Care Team (Late st Contact Info) Description 11/02/2022 Telephone [facility] [place] [id number] Michaela Fitzgerald RNFA Disability Form Social History Tobacco Use Types Packs/Day Years Used Date Smoking Tobacco: Every Day Cigarettes Smokeless Tobacco: Never Alcohol Use Standard Drinks/Week Comments Not Currently 0 (1 standard drink = 0.6 oz pur e alcohol) Comments No Sex and Gender Information Value Date Recorded Sex Assigned at Not on file Legal Sex Female 11:30 PM SILK FINISHER Gender Identity Female 11/10/2021 3:09 PM CDT [...] Assessment Author Status No 07/30/2020 10:48 PM SILK FINISHER Acti ve * RETIRED Are you blind or do you have serious difficulty seeing, even when wearing glasses? Answer Date of Assessment Author Status No 07/30/2020 10:46 PM SILK FINISHER Acti ve * Do you have serious [...] was completed at this time. RN spoketo director of industrial relations who would like work note faxed to [phone] which was completed at this time. Also emailed as requested at this time. Claim number [id number] * LUCIO Irvin - 11/02/2022 2:33 PM CDT Rn received message that work note needs emailed. RN reviewed file and email address previously used not found. RN advised patient of this. She then provided email of [email or web address] as well as bilingual patient support caseworker phone number [phone]. Patient also states that she has supplied her work with copy of the work note. documented in this encounter Plan of Treatment Upcoming Encounters Date Type Department Care Team (Late st Contact Info) Description 09/25/2024 11:30 AM SILK FINISHER Appointment [facility] [address] [place] [address] Roberta Alex MD [address] [place] [address] 09/25/2024 11:40 AM SILK FINISHER Office Visit [facility] [address] [place] [address] Roberta Alex MD [address] [place] [address] documented as of this encounter Visit Diagnoses Not on filedocumented in this encounter Additional Health Concerns Infection Onset Date Last Indicated Resolved Time MRSA 06/05/2021 06/05/2021 documented as of this encounter Care Teams Rate Inserter Relationship Specialty Start Date End Date Alejandro Blevins MD PCP - General FAMILY PRACTICE 12/10/19 documented as of this encounter
--- OUTSIDE RECORDS SUMMARY | 2024-07-11 09:56 | XMS_ITS | Encounter Summary ---
Author Organization [facility] Address [address] [place] [address]. [place], [place] [id number] [place] [address] Care Team Providers Care Shoe Dresser Name Role Phone Alejandro Blevins MD Primary Care Provider [phone] Encounter Details Date Type Department Care Team [...] file Legal Sex Female 11:30 PM PLASTIC EYE TECHNICIAN Gender Identity Female 11/10/2021 3:09 PM [...] Assessment Author Status No 07/30/2020 10:48 PM PLASTIC EYE TECHNICIAN Acti ve * RETIRED Are you blind or do you have serious difficulty seeing, even when wearing glasses? Answer Date of Assessment Author Status No 07/30/2020 10:46 PM PLASTIC EYE TECHNICIAN Acti ve * Do you have serious difficulty walking or climbing stairs? Answer Date of Assessment Author Status No 07/30/2020 10:46 PM PLASTIC EYE TECHNICIAN Nella Le RN Active * Do you have difficulty dressing or bathing? Answer Date of Assessment Author Status No 07/30/2020 10:46 PM PLASTIC EYE TECHNICIAN Nella Le RN Active * Because of a physical, mental, or emotional condition, do you have difficulty doing errands alone such as visiting a doctor's office or shopping? Answer Date of Assessment Author Status No 07/30/2020 10:46 PM PLASTIC EYE TECHNICIAN Nella Le RN Active documented as of this encounter Mental Status * Because of a physical, mental, or emotional condition, do you have serious difficulty concentrating, remembering, or making decisions? Answer Entry Date Author Status No 07/30/2020 10:46 PM PLASTIC EYE TECHNICIAN Nella Le RN Active documented in this encounter Plan of Treatment Upcoming Encounters Date Type Department Care Team (Late st Contact Info) Description 09/25/2024 11:30 AM PLASTIC EYE TECHNICIAN Appointment [facility] [address] [place] [address] Roberta Alex MD [address] [place] [id number] 09/25/2024 11:40 AM PLASTIC EYE TECHNICIAN Office Visit [facility] [address] [place] [address] Roberta Alex MD [address] [place] [id number] documented as of this encounter Visit Diagnoses Not on filedocumented in this encounter Additional Health Concerns Infection Onset Date Last Indicated Resolved Time MRSA 06/05/2021 06/05/2021 documented as of this encounter Care Teams Shoe Dresser Relationship Specialty Start Date End Date Alejandro Blevins MD PCP - General FAMILY PRACTICE 12/10/19 documented as of this encounter
--- OUTSIDE RECORDS SUMMARY | 2024-07-11 09:56 | XMS_ITS | Encounter Summary ---
Author Organization [facility] Address [address] [place] [address]. [place] [address] [place] [address] Care Team Providers Care Air Quality Instrument Specialist Name Role Phone Alejandro Blevins MD Primary Care Provider [phone] Encounter Details Date Type Department Care Team (Latest Contact Info) Description 12/07/2022 10:20 AM CDT - 12/07/2022 10:40 AM CDT Hospital Encounter [address] [place] [address] Roberta Alex MD [address] [place] [address] Discharge Disposition: Home or Self Care (Routine Discharge) Social History Tobacco Use Types Packs/Day Years Used Date Smoking Tobacco: Every Day Cigarettes Smokeless Tobacco: Never Alcohol Use Standard Drinks/Week Comments Not Currently 0 (1 standard drink = 0.6 oz pur e alcohol) Comments No Sex and Gender Information Value Date Recorded Sex Assigned at Not on file Legal Sex Female 11:30 PM DIRECTOR SURGICAL Gender Identity Female 11/10/2021 3:09 PM CDT [...] Author Status No 07/30/2020 10:48 PM DIRECTOR SURGICAL Acti ve * RETIRED Are you blind or do you have serious difficulty seeing, even when wearing glasses? Answer Date of Assessment Author Status No 07/30/2020 10:46 PM DIRECTOR SURGICAL Acti ve * Do you have serious [...] Contact Info) Description 09/25/2024 11:30 AM DIRECTOR SURGICAL Appointment [facility] [address] [place] [address] Roberta Alex MD [address] [place] [address] 09/25/2024 11:40 AM DIRECTOR SURGICAL Office Visit [facility] [place] [address] Roberta Alex MD [address] [place], [place] [id number] documented as of this encounter Procedures Procedure [...] - 252 NG/ML 12/07/2022 11:31 AM CDT [facility] 12/07/2022 10:5 1 AM CDT Roberta Alex MD LABORATORY Final Result [facility] [address] [place] [address], * IRON SAT PANEL (IRON,IBC,%SAT) (12/07/2022 10:51 AM CDT) IRON 89 50 - 170 MCG/DL 12/07/2022 12:24 PM CDT [facility] IRON BINDING CAPACITY 373 250 - 450 MCG/DL 12/07/2022 12:24 PM CDT [facility] IRON SATURATION 24 % 12:24 PM CDT [facility] Comment:REFERENCE RANGE NOT ESTABLISHED 12/07/2022 10:5 1 AM CDT us Roberta Alex MD LABORATORY Final Result [facility] [address] [place] [address], * (ABNORMAL) CBC W/DIFF AUTOMATED (12/07/2022 10:51 AM CDT) WBC 7.28 4.00 - 10.80 x10'3/uL 12/07/2022 11:10 AM CDT [facility] RBC 5.13 4.10 - 5.40 x10'6/uL 12/07/2022 11:10 AM CDT [facility] HGB 14.6 12.0 - 16.0 G/DL 12/07/2022 11:10 AM CDT [facility] HCT 46.1 36.0 - 47.0 % 12/07/2022 11:10 AM CDT [facility] MCV 89.9 78.0 - 100.0 FL 12/07/2022 11:10 AM CDT [facility] MCH 28.5 27.0 - 31.0 PG 12/07/2022 11:10 AM CDT [facility] MCHC 31.7(L) 33.0 - 36.0 G/DL 12/07/2022 11:10 AM CDT [facility] RDW 13.1 11.5 - 14.5 % 12/07/2022 11:10 AM CDT [facility] PLT 36(L) 150 - 350 x10'3/uL 12/07/2022 11:10 AM CDT [facility] MPV RESULTS NOT AVAILABLE 7.4 - 10.4 FL 12/07/2022 11:10 AM CDT [facility] CBC COMMENT NORMAL REFERENCE RANGE NOT ESTABLISHED FOR THE PROPORTIONAL LEUKOCYTE DIFFERENTIAL. 12/07/2022 11:10 AM CDT [facility] NEUTROPHILS % 56.4 % 12/07/2022 11:34 AM CDT [facility] LYMPHOCYTES % 30.8 % 12/07/2022 11:34 AM CDT [facility] MONOCYTES % 6.9 % 12/07/2022 11:34 AM CDT [facility] EOSINOPHILS % 4.8 % 12/07/2022 11:34 AM CDT [facility] BASOPHILS % 1.0 % 12/07/2022 11:34 AM CDT [facility] IMMATURE GRANS % 0.1 % 12/08/19 11:34 AM CDT [facility] NRBC 0.0 % 12/07/2022 11:34 AM CDT [facility] ABS. NEUTROPHILS 4.11 1.60 - 8.30 x10'3/uL 12/07/2022 11:34 AM CDT [facility] ABS. LYMPHOCYTES 2.24 0.80 - 4.70 x10'3/uL 12/07/2022 11:34 AM CDT [facility] ABS. MONOCYTES 0.50 0.00 - 1.50 x10'3/uL 12/07/2022 11:34 AM CDT [facility] ABS. EOSINOPHILS 0.35 0.00 - 0.40 x10'3/uL 12/07/2022 11:34 AM CDT [facility] ABS. BASOPHILS 0.07 0.00 - 0.20 x10'3/uL 12/07/2022 11:34 AM CDT [facility] ABS. IMMATURE GRANULOCYTES 0.01 0.00 - 0.03 x10'3/uL 12/07/2022 11:34 AM CDT [facility] ABS. NUCLEATED RBC'S 0.00 0.00 x10'3/uL 12/07/2022 11:34 AM CDT [facility] PLT MORPH. DECREASED 12/07/2022 11:34 AM CDT [facility] RBC MORPHOLOGY 1+ 12/07/2022 11:34 AM CDT [facility] Comment: ANISOCYTOSIS 1+ POIKILOCYTOSIS 12/07/2022 10:5 1 AM CDT us Roberta Alex MD LABORATORY Final Result [facility] [address] [email or web address] [address], * VITAMIN B-12 (12/07/2022 10:15 AM CDT) VITAMIN B12 S/P/B 461 193 - 986 PG/ML 12/08/2022 3:47 PM CDT [facility] 12/07/2022 10:1 5 AM CDT Roberta Alex MD LABORATORY Final Result [facility] [address] [place] [address], [place] [phone] * COMPREHENSIVE METABOLIC PANEL (12/07/2022 10:15 AM CDT) SODIUM S/P/B 138 136 - 145 MMOL/L 12/07/2022 3:38 PM CDT [facility] POTASSIUM S/P/B 4.5 3.5 - 5.1 MMOL/L 12/07/2022 3:38 PM CDT [facility] Comment:MILD HEMOLYSIS, RESU LT MAY BE AFFECTED. CHLORIDE S/P/B 103 98 - 107 MMOL/L 12/07/2022 3:38 PM CDT [facility] CO2 24.1 21.0 - 32.0 MMOL/L 12/07/2022 3:38 PM CDT [facility] GLUCOSE 94 70 - 99 MG/DL 12/07/2022 3:38 PM CDT [facility] Comment: FASTING GLUCOSE 100 TO 125 MG/DL IS CONSISTENT WITH IMPAIRED FASTING GLUCOSE. FASTING GLUCOSE >125 MG/DL IS CONSISTENT WITH DIABETES. RANDOM GLUCOSE >200 MG/DL WITH HYPERGLYCEMIC SYMPTOMS IS CONSISTENT WITH DIABETES. PER ADA GUIDELINES BUN 15 6 - 24 MG/DL 12/07/2022 3:38 PM CDT [facility] CREATININE S/P/B 0.77 0.55 - 1.02 MG/DL 12/07/2022 3:38 PM CDT [facility] CALCIUM S/P/B 8.8 8.4 - 10.5 MG/DL 12/07/2022 3:38 PM T [facility] BILIRUBIN TOTAL S/P/B 0.3 0.2 - 1.0 MG/DL 12/07/2022 3:38 PM [facility] Comment: THIS ASSAY IS NOT RECOMMENDED FOR PATIENTS UNDERGOING TREATMENT WITH ELTROMBOPAG DUE TO THE POTENTIAL FOR FALSELY ELEVATED RESULTS. ALKALINE PHOSPHATASE S/P/B 70 37 - 98 U/L 12/07/2022 3:38 PM T [facility] AST 22 15 - 37 U/L 12/07/2022 3:38 PM [facility] Comment:MILD HEMOLYSIS, RESU LT MAY BE AFFECTED. ALT 16 14 - 59 U/L 12/07/2022 3:38 PM T [facility] TOTAL PROTEIN S/P/B 7.4 6.4 - 8.2 G/DL 12/07/2022 3:38 PM T [facility] ALBUMIN S/P/B 3.8 3.4 - 5.0 G/DL 12/07/2022 3:38 PM [facility] ANION GAP 10.9 5.0 - 15.0 MMOL/L 12/07/2022 3:38 PM [facility] OSMOLALITY (CALC) 287 MOSM/KG 023 3:38 PM [facility] Comment:REFERENCE RANGE NOT ESTABLISHED GFR ESTIMATE >90 >89 ML/MIN/1. 73 M2 12/07/2022 3:38 PM [facility] GFR NOTES GFR REFERENCE S: 12/07/2022 3:38 PM [facility] Comment: THE [...] Final Result [facility] [address] [place] [address], documented in this encounter Visit Diagnoses Diagnosis Thrombocytopenia (CMS/HCC) Thrombocytopenia, unspecified documented in this encounter Additional Health Concerns Infection Onset Date Last Indicated Resolved Time MRSA 06/05/2021 06/05/2021 documented as of this encounter Care Teams Air Quality Instrument Specialist Relationship Specialty Start Date End Date Alejandro Blevins MD PCP - General FAMILY PRACTICE 12/10/19 documented as of this encounter
--- OUTSIDE RECORDS SUMMARY | 2024-07-11 09:56 | XMS_ITS | Encounter Summary ---
Author Organization [facility] Address [address] [place] [address]. [place] [address] [place] [address] Care Team Providers Care Ssas Developer Name Role Phone Alejandro Blevins MD Primary Care Provider [phone] Encounter Details Date Type Department Care Team (Late st Contact Info) Description 12/08/2022 Orders Only [address] [place] [address] Carey Pang, APNP [address] [place] [id number] Social History Tobacco Use Types Packs/Day Years Used Date Smoking Tobacco: Every Day Cigarettes Smokeless Tobacco: Never Alcohol Use Standard Drinks/Week Comments Not Currently 0 (1 standard drink = 0.6 oz pur e alcohol) Comments No Sex and Gender Information Value Date Recorded Sex Assigned at Not on file Legal Sex Female 11:30 PM SPRING TACKER Gender Identity Female 11/10/2021 3:09 PM CDT [...] Assessment Author Status No 07/30/2020 10:48 PM SPRING TACKER Acti ve * RETIRED Are you blind or do you have serious difficulty seeing, even when wearing glasses? Answer Date of Assessment Author Status No 07/30/2020 10:46 PM SPRING TACKER Acti ve * Do you have serious [...] Date Author Status No 07/30/2020 10:46 PM Nlela Leonardo RN Active documented in this encounter Plan of Treatment Upcoming Encounters Date Type Department Care Team (Late st Contact Info) Description 09/25/2024 11:30 AM SPRING TACKER Appointment [facility] [address] [place] [address] Roberta Alex MD [address] [place] [address] 09/25/2024 11:40 AM SPRING TACKER Office Visit [facility] [address] [place] [address] Roberta Alex MD [address] [place] [address] documented as of this encounter Visit Diagnoses Diagnosis Thrombocytopenia (CMS/HCC)- Primary Thrombocytopenia, unspecified Iron deficiency anemia secondary to inadequate dietary iron intake documented in this encounter Additional Health Concerns Infection Onset Date Last Indicated Resolved Time MRSA 06/05/2021 06/05/2021 documented as of this encounter Care Teams Ssas Developer Relationship Specialty Start Date End Date Alejandro Blevins MD PCP - General FAMILY PRACTICE 5/18/20 documented as of this encounter
--- OUTSIDE RECORDS SUMMARY | 2024-07-11 09:56 | XMS_ITS | Encounter Summary ---
Author Organization [facility] Address [address] [place] [address]. [place] [address] [place] [address] Care Team Providers Care Ticket Broker Name Role Phone Alejandro Blevins MD Primary Care Provider [phone] Reason for Visit * Reason Comments Infusion Therapy * Treatment/Therapy Plan Authorization (Routine) - Closed Specialty Diagnoses / Procedures Referred By Contac t Referred To Contact Diagnoses Iron deficiency anemia due to chronic blood loss Procedures Roberta Evans MD [address] [place] [address] Phone: tel: fax: [facility] [place] [place] [address] Phone: tel: Referral ID Status Reason Start Date Expiration Date Visits Re quested Visits Authorized [id number] Closed 12/07/2022 12/08/2023 1 1 Encounter Details Date Type Department Care Team (Latest Contact Info) Description 12/07/2022 10:41 AM CDT - 12/07/2022 11:59 PM T Hospital Encounter [facility] [place] [address] Roberta Alex MD [address] [place], [place] [address] Infusion Therapy Discharge Disposition: Home or Self [...] file Legal Sex Female 11:30 PM CLINICAL INFORMATION SYSTEMS DIRECTOR Gender Identity Female 11/10/2021 3:09 PM [...] Author Status No 07/30/2020 10:48 PM CLINICAL INFORMATION SYSTEMS DIRECTOR Acti ve * RETIRED Are you blind or do you have serious difficulty seeing, even when wearing glasses? Answer Date of Assessment Author Status No 07/30/2020 10:46 PM CLINICAL INFORMATION SYSTEMS DIRECTOR Acti ve * Do you have [...] Contact Info) Description 09/25/2024 11:30 AM CLINICAL INFORMATION SYSTEMS DIRECTOR Appointment [facility] [place] [address] Roberta Alex MD [address] [place] [address] 09/25/2024 11:40 AM CLINICAL INFORMATION SYSTEMS DIRECTOR Office [facility] [place] [address] Roberta Alex MD [address] [place] [address] documented as of this encounter Visit Diagnoses [...] documented as of this encounter Care Teams Ticket Broker Relationship Specialty Start Date End Date Alejandro Blevins MD PCP - General FAMILY PRACTICE 12/10/19 documented as of this encounter
--- OUTSIDE RECORDS SUMMARY | 2024-07-11 09:56 | XMS_ITS | Encounter Summary ---
Author Organization [facility] Address [address] [place] [address]. [place] [address] [place] [address] Care Team Providers Care Bench Mechanic Name Role Phone Alejandro Blevins MD Primary Care Provider [phone] Reason for Visit * Reason Comments Infusion Therapy * Treatment/Therapy Plan Authorization (Routine) - Closed Specialty Diagnoses / Procedures Referred By Contac t Referred To Contact Diagnoses Iron deficiency anemia due to chronic blood loss Procedures Roberta Evans MD [address] [place] [address] Phone: tel: fax: [facility] [place] [address] Phone: tel: Referral ID Status Reason Start Date Expiration Date Visits Re quested Visits Authorized [id number] Closed 12/07/2022 12/08/2023 1 1 Encounter Details Date Type Department Care Team (Late st Contact Info) Description 12/13/2022 11:25 AM CDT - 12/13/2022 11:59 PM CDT Hospital Encounter [facility] [place] [address] Alejandro Blevins MD [address] [place] [address] Infusion Therapy Discharge Disposition: Home [...] on file Legal Sex Female 11:30 PM FORM COVERER Gender Identity Female 11/10/2021 3:09 PM [...] Assessment Author Status No 07/30/2020 10:48 PM FORM COVERER Acti ve * RETIRED Are you blind or do you have serious difficulty seeing, even when wearing glasses? Answer Date of Assessment Author Status No 07/30/2020 10:46 PM FORM COVERER Acti ve * Do you have serious difficulty walking or climbing stairs? Answer Date of Assessment Author Status No 07/30/2020 10:46 PM FORM COVERER Nella Le RN Active * Do you [...] section accepted * Luis Gonzalez RN - 12/13/2022 11:30 AM CDT PATIENT [...] st Contact Info) Description 09/25/2024 11:30 AM FORM COVERER Appointment [facility] [address] [place] [address] [place] [address] Roberta Alex MD [address] [place] [address] 09/25/2024 11:40 AM FORM COVERER Office Visit [facility] [address] [place] [address] [place] [address] Roberta Alex MD [address] [place] [address] documented as of this encounter Visit Diagnoses [...] documented as of this encounter Care Teams Bench Mechanic Relationship Specialty Start Date End Date Alejandro Blevins MD PCP - General FAMILY PRACTICE 12/10/19 documented as of this encounter
--- OUTSIDE RECORDS SUMMARY | 2024-07-11 09:56 | XMS_ITS | Encounter Summary ---
Author Organization [facility] Address [address] [place] [address]. [place] [address] [place] [address] Care Team Providers Care Engagement Engineer Name Role Phone Alejandro Blevisn MD Primary Care Provider [phone] Encounter Details Date Type Department Care Team (Latest Contact Info) Description 11/29/2022 4:25 PM CDT - 11/29/2022 11:59 PM CDT Hospital Encounter [address] [place] [address] Roberta Alex MD [address] [place] [address] Discharge Disposition: Home or Self Care (Routine Discharge) Social History Tobacco Use Types Packs/Day Years Used Date Smoking Tobacco: Every Day Cigarettes Smokeless Tobacco: Never Alcohol Use Standard Drinks/Week Comments Not Currently 0 (1 standard drink = 0.6 oz pur e alcohol) Comments No Sex and Gender Information Value Date Recorded Sex Assigned at Not on file Legal Sex Female 11:30 PM ELECTROTYPER HELPER Gender Identity Female 11/10/2021 3:09 PM [...] Assessment Author Status No 07/30/2020 10:48 PM ELECTROTYPER HELPER Acti ve * RETIRED Are you blind or do you have serious difficulty seeing, even when wearing glasses? Answer Date of Assessment Author Status No 07/30/2020 10:46 PM ELECTROTYPER HELPER Acti ve * Do you have [...] st Contact Info) Description 09/25/2024 11:30 AM ELECTROTYPER HELPER Appointment [facility] [address] [place] [address] Roberta Alex MD [address] [place] [address] 09/25/2024 11:40 AM ELECTROTYPER HELPER Office Visit [facility] [place] [address] Roberta Alex MD [address] [place], [place] [address] documented as of this encounter Procedures Procedure Name Priority Date/Time Associated Diagnosis Comments IRON SAT PANEL (IRON,IBC,%SAT) Routine 11/29/2022 4:37 PM CDT Thrombocytopenia CBC W/DIFF AUTOMATED Routine 11/29/2022 4:37 PM CDT Thrombocytopenia FERRITIN Routine 11/29/2022 4:37 PM CDT Thrombocytopenia documented in this encounter Results * FERRITIN (11/29/2022 4:37 PM CDT) Pathologist [facility] FERRITIN 13.9 8 - 252 NG/ML 11/29/2022 5:21 PM CDT [facility] 11/29/2022 4:37 PM CDT Roberta Alex MD LABORATORY Final Result Performing Organization Address City/[facility]/ZIP Co de Phone Number [facility] [address] [place] [address], * (ABNORMAL) IRON SAT PANEL (IRON,IBC,%SAT) (11/29/2022 4:37 PM CDT) [facility] IRON 47(L) 50 - 170 MCG/DL 11/29/2022 5:17 PM CDT [facility] IRON BINDING CAPACITY 324 250 - 450 MCG/DL 11/29/2022 5:17 PM CDT [facility] IRON SATURATION 15 % 5:17 PM CDT [facility] Comment:REFERENCE RANGE NOT ESTABLISHED 11/29/2022 4:37 PM CDT us Roberta Alex MD LABORATORY Final Result Performing Organization Address City/[facility]/ZIP Co de Phone Number [facility] [address] [place] [address], * (ABNORMAL) CBC W/DIFF AUTOMATED (11/29/2022 4:37 PM CDT) [facility] WBC 7.17 4.00 - 10.80 x10'3/uL 11/29/2022 4:52 PM CDT [facility] RBC 5.00 4.10 - 5.40 x10'6/uL 11/29/2022 4:52 PM CDT [facility] HGB 14.0 12.0 - 16.0 G/DL 11/29/2022 4:52 PM CDT [facility] HCT 44.9 36.0 - 47.0 % 11/29/2022 4:52 PM CDT [facility] MCV 89.8 78.0 - 100.0 FL 11/29/2022 4:52 PM CDT [facility] MCH 28.0 27.0 - 31.0 PG 11/29/2022 4:52 PM CDT [facility] MCHC 31.2(L) 33.0 - 36.0 G/DL 11/29/2022 4:52 PM CDT [facility] RDW 13.4 11.5 - 14.5 % 11/29/2022 4:52 PM CDT [facility] PLT 42(L) 150 - 350 x10'3/uL 11/29/2022 4:52 PM CDT [facility] MPV RESULTS NOT AVAILABLE 7.4 - 10.4 FL 11/29/2022 4:52 PM CDT [facility] CBC COMMENT NORMAL REFERENCE RANGE NOT ESTABLISHED FOR THE PROPORTIONAL LEUKOCYTE DIFFERENTIAL. 11/29/2022 4:52 PM CDT [facility] NEUTROPHILS % 67.0 % 11/29/2022 5:14 PM CDT [facility] LYMPHOCYTES % 24.8 % 11/29/2022 5:14 PM CDT [facility] MONOCYTES % 4.6 % 11/29/2022 5:14 PM CDT [facility] EOSINOPHILS % 2.9 % 11/29/2022 5:14 PM CDT [facility] BASOPHILS % 0.6 % 11/29/2022 5:14 PM CDT [facility] IMMATURE GRANS % 0.1 % 11/30/19 5:14 PM CDT [facility] NRBC 0.0 % 11/29/2022 5:14 PM CDT [facility] ABS. NEUTROPHILS 4.80 1.60 - 8.30 x10'3/uL 11/29/2022 5:14 PM CDT [facility] ABS. LYMPHOCYTES 1.78 0.80 - 4.70 x10'3/uL 11/29/2022 5:14 PM CDT [facility] ABS. MONOCYTES 0.33 0.00 - 1.50 x10'3/uL 11/29/2022 5:14 PM CDT [facility] ABS. EOSINOPHILS 0.21 0.00 - 0.40 x10'3/uL 11/29/2022 5:14 PM CDT [facility] ABS. BASOPHILS 0.04 0.00 - 0.20 x10'3/uL 11/29/2022 5:14 PM CDT [facility] ABS. IMMATURE GRANULOCYTES 0.01 0.00 - 0.03 x10'3/uL 11/29/2022 5:14 PM CDT [facility] ABS. NUCLEATED RBC'S 0.00 0.00 x10'3/uL 11/29/2022 5:14 PM CDT [facility] PLT MORPH. DECREASED 11/29/2022 5:14 PM CDT [facility] RBC MORPHOLOGY NORMAL 11/29/2022 5:14 PM CDT [facility] 11/29/2022 4:37 PM CDT us Roberta Alex MD LABORATORY Final Result [facility] [address] [place] [address], documented in this encounter Visit Diagnoses Diagnosis Thrombocytopenia (CMS/HCC) Thrombocytopenia, unspecified documented in this encounter Additional Health Concerns Infection Onset Date Last Indicated Resolved Time MRSA 06/05/2021 06/05/2021 documented as of this encounter Care Teams Engagement Engineer Relationship Specialty Start Date End Date Alejandro Blevins MD PCP - General FAMILY PRACTICE 12/10/19 documented as of this encounter
--- OUTSIDE RECORDS SUMMARY | 2024-07-11 09:56 | XMS_ITS | Encounter Summary ---
Author Organization [facility] Address [address] [place] [address]. [place], [place] [id number] [place] [address] Care Team Providers Care Cutter Grinder Operator Name Role Phone Alejandro Blevins MD Primary Care Provider [phone] Encounter Details Date Type Department Care Team [...] on file Legal Sex Female 11:30 PM PRINT LINE FEEDER Gender Identity Female 11/10/2021 3:09 PM CDT [...] Assessment Author Status No 07/30/2020 10:48 PM PRINT LINE FEEDER Acti ve * RETIRED Are you blind or do you have serious difficulty seeing, even when wearing glasses? Answer Date of Assessment Author Status No 07/30/2020 10:46 PM PRINT LINE FEEDER Acti ve * Do you have serious difficulty walking or climbing stairs? Answer Date of Assessment Author Status No 07/30/2020 10:46 PM PRINT LINE FEEDER Nella Le RN Active * Do you have difficulty dressing or bathing? Answer Date of Assessment Author Status No 07/30/2020 10:46 PM PRINT LINE FEEDER Nella Le RN Active * Because of a physical, mental, or emotional condition, do you have difficulty doing errands alone such as visiting a doctor's office or shopping? Answer Date of Assessment Author Status No 07/30/2020 10:46 PM PRINT LINE FEEDER Nella Le RN Active documented as of this encounter Mental Status * Because of a physical, mental, or emotional condition, do you have serious difficulty concentrating, remembering, or making decisions? Answer Entry Date Author Status No 07/30/2020 10:46 PM PRINT LINE FEEDER Nella Le RN Active documented in this encounter Plan of Treatment Upcoming Encounters Date Type Department Care Team (Late st Contact Info) Description 09/25/2024 11:30 AM PRINT LINE FEEDER Appointment [facility] [address] [place] [address] Roberta Alex MD [address] [place] [address]32941 09/25/2024 11:40 AM PRINT LINE FEEDER Office Visit [facility] [address] [place] [address] Roberta Alex MD [address] [place] [address] documented as of this encounter Visit Diagnoses Not on filedocumented in this encounter Additional Health Concerns Infection Onset Date Last Indicated Resolved Time MRSA 06/05/2021 06/05/2021 documented as of this encounter Care Teams Cutter Grinder Operator Relationship Specialty Start Date End Date Alejandro Blevins MD PCP - General FAMILY PRACTICE 12/10/19 documented as of this encounter
--- OUTSIDE RECORDS SUMMARY | 2024-07-11 09:56 | XMS_ITS | Encounter Summary ---
Author Organization [facility] Address [address] [place] [address]. [place] [address] [place] [address] Care Team Providers Care Sourcing Consultant Name Role Phone Alejandro Blevins MD Primary Care Provider [phone] Reason for Visit * Reason Onset Date Comments Information 12/10/2022 Encounter Details Date Type Department Care Team ([facility] Contact Info) Description 12/10/[address] [place] [address] Roberta Alex MD [address] [place] [address] Information Social History Tobacco Use Types Packs/Day Years Used Date Smoking Tobacco: Every Day Cigarettes Smokeless Tobacco: Never Alcohol Use Standard Drinks/Week Comments Not Currently 0 (1 standard drink = 0.6 oz pur e alcohol) Comments No Sex and Gender Information Value Date Recorded Sex Assigned at Not on file Legal Sex Female 11:30 PM CHECKER/STOCKER Gender Identity Female 11/10/2021 3:09 PM CDT [...] Assessment Author Status No 07/30/2020 10:48 PM CHECKER/STOCKER Acti ve * RETIRED Are you blind or do you have serious difficulty seeing, even when wearing glasses? Answer Date of Assessment Author Status No 07/30/2020 10:46 PM CHECKER/STOCKER Acti ve * Do you have serious [...] st Contact Info) Description 09/25/2024 11:30 AM CHECKER/STOCKER Appointment [facility] [place] [address] Roberta Alex MD [address] [place] [address] 09/25/2024 11:40 AM CHECKER/STOCKER Office Visit [facility] [place] [address] Roberta Alex MD [address] [place] [address] documented as of this encounter Visit Diagnoses Not on filedocumented in this encounter Additional Health Concerns Infection Onset Date Last Indicated Resolved Time MRSA 06/05/2021 06/05/2021 documented as of this encounter Care Teams Sourcing Consultant Relationship Specialty Start Date End Date Alejandro Blevins MD PCP - General FAMILY PRACTICE 12/10/19 documented as of this encounter
--- OUTSIDE RECORDS SUMMARY | 2024-07-11 09:56 | XMS_ITS | Encounter Summary ---
Author Organization [facility] Address [address] [place] [address]. [place] [address] [place] [address] Care Team Providers Care Machine Hamper Maker Name Role Phone Alejandro Blevins MD Primary Care Provider [phone] Encounter Details Date Type Department Care Team (Latest Contact Info) Description 12/13/2022 11:20 AM CDT - 12/13/2022 11:24 AM CDT Hospital Encounter [facility] [address] [place] [address] [place] [address] Carey Pang, [place] [address] [place] [phone] Discharge Disposition: Home or Self Care [...] file Legal Sex Female 11:30 PM DATA ENTRY ASSOCIATE Gender Identity Female 11/10/2021 3:09 PM [...] Assessment Author Status No 07/30/2020 10:48 PM DATA ENTRY ASSOCIATE Acti ve * RETIRED Are you blind or do you have serious difficulty seeing, even when wearing glasses? Answer Date of Assessment Author Status No 07/30/2020 10:46 PM DATA ENTRY ASSOCIATE Acti ve * Do you have [...] (PRILOSEC) 20 MG capsuleIndication s:Acute ITP (CMS/HCC [facility]/HCC) Take 1 capsule (20 mg total) by mouth daily. 30 capsule 1 12/07/2022 04/11/2023 documented as of this encounter Plan of Treatment Upcoming Encounters Date Type Department Care Team (Late st Contact Info) Description 09/25/2024 11:30 AM DATA ENTRY ASSOCIATE Appointment [facility] [place] [address] Roberta Alex MD [address] [place] [address] 09/25/2024 11:40 AM DATA ENTRY ASSOCIATE Office Visit [facility] [place] [address] Roberta Alex MD [address] [place] [address] documented as of this encounter Procedures Procedure Name Priority Date/Time Associated Diagnosis Comments CBC W/DIFF AUTOMATED Routine 12/13/2022 11:43 AM CDT Thrombocytopenia documented in this encounter Results * (ABNORMAL) CBC W/DIFF AUTOMATED (12/13/2022 11:43 AM CDT) WBC 8.96 4.00 - 10.80 x10'3/uL 12/13/2022 11:54 AM CDT [facility] RBC 4.94 4.10 - 5.40 x10'6/uL 12/13/2022 11:54 AM CDT [facility] HGB 14.3 12.0 - 16.0 G/DL 12/13/2022 11:54 AM CDT [facility] HCT 44.3 36.0 - 47.0 % 12/13/2022 11:54 AM CDT [facility] MCV 89.7 78.0 - 100.0 FL 12/13/2022 11:54 AM CDT [facility] MCH 28.9 27.0 - 31.0 PG 12/13/2022 11:54 AM CDT [facility] MCHC 32.3(L) 33.0 - 36.0 G/DL 12/13/2022 11:54 AM CDT [facility] RDW 12.9 11.5 - 14.5 % 12/13/2022 11:54 AM CDT [facility] PLT 33(L) 150 - 350 x10'3/uL 12/13/2022 11:54 AM CDT [facility] MPV RESULTS NOT AVAILABLE 7.4 - 10.4 FL 12/13/2022 11:54 AM CDT [facility] CBC COMMENT NORMAL REFERENCE RANGE NOT ESTABLISHED FOR THE PROPORTIONAL LEUKOCYTE DIFFERENTIAL. 12/13/2022 11:54 AM CDT [facility] NEUTROPHILS % 67.9 % 12/13/2022 12:07 PM CDT [facility] LYMPHOCYTES % 22.0 % 12/13/2022 12:07 PM CDT [facility] MONOCYTES % 4.7 % 12/13/2022 12:07 PM CDT [facility] EOSINOPHILS % 4.4 % 12/13/2022 12:07 PM CDT [facility] BASOPHILS % 0.8 % 12/13/2022 12:07 PM CDT [facility] IMMATURE GRANS % 0.2 % 12/14/19 12:07 PM CDT [facility] NRBC 0.0 % 12/13/2022 12:07 PM CDT [facility] ABS. NEUTROPHILS 6.09 1.60 - 8.30 x10'3/uL 12/13/2022 12:07 PM CDT [facility] ABS. LYMPHOCYTES 1.97 0.80 - 4.70 x10'3/uL 12/13/2022 12:07 PM CDT [facility] ABS. MONOCYTES 0.42 0.00 - 1.50 x10'3/uL 12/13/2022 12:07 PM CDT [facility] ABS. EOSINOPHILS 0.39 0.00 - 0.40 x10'3/uL 12/13/2022 12:07 PM CDT [facility] ABS. BASOPHILS 0.07 0.00 - 0.20 x10'3/uL 12/13/2022 12:07 PM CDT [facility] ABS. IMMATURE GRANULOCYTES 0.02 0.00 - 0.03 x10'3/uL 12/13/2022 12:07 PM CDT [facility] ABS. NUCLEATED RBC'S 0.00 0.00 x10'3/uL 12/13/2022 12:07 PM T [facility] PLT MORPH. DECREASED 12/13/2022 12:07 PM CDT [facility] Comment:LARGE PLATELETS RBC MORPHOLOGY NORMAL 12/13/2022 12:07 PM CDT [facility] 12/13/2022 11:4 3 AM CDT [facility] Final Res ult [facility] [address] [place] [address], documented in this encounter Visit Diagnoses Diagnosis Thrombocytopenia (CMS/HCC) Thrombocytopenia, unspecified documented in this encounter Additional Health Concerns Infection Onset Date Last Indicated Resolved Time MRSA 06/05/2021 06/05/2021 documented as of this encounter Care Teams Machine Hamper Maker Relationship Specialty Start Date End Date Alejandro Blevins MD PCP - General FAMILY PRACTICE 12/10/19 documented as of this encounter
--- OUTSIDE RECORDS SUMMARY | 2024-07-11 09:56 | XMS_ITS | Encounter Summary ---
Author Organization [facility] Address [facility] [place] [address] [place] [address] Care Team Providers Care Account Retention Representative Name Role Phone Alejandro Blevins MD Primary Care Provider [phone] Encounter Details Date Type Department Care Team (Late st Contact Info) Description 12/01/2022 Orders Only [address] [place] [address] Roberta Alex MD [address] [place] [address] Social History Tobacco Use Types Packs/Day Years Used Date Smoking Tobacco: Every Day Cigarettes Smokeless Tobacco: Never Alcohol Use Standard Drinks/Week Comments Not Currently 0 (1 standard drink = 0.6 oz pur e alcohol) Comments No Sex and Gender Information Value Date Recorded Sex Assigned at Not on file Legal Sex Female 11:30 PM STOCK GRADER Gender Identity Female 11/10/2021 3:09 PM [...] Assessment Author Status No 07/30/2020 10:48 PM STOCK GRADER Acti ve * RETIRED Are you blind or do you have serious difficulty seeing, even when wearing glasses? Answer Date of Assessment Author Status No 07/30/2020 10:46 PM STOCK GRADER Acti ve * Do you have [...] Date Type Department Care Team (Late st [facility] Info) Description 09/25/2024 11:30 AM STOCK GRADER Appointment [facility] On [facility] of [facility] [place] [address] Roberta Alex MD [address] [place] [address] 09/25/2024 11:40 AM STOCK GRADER Office Visit [facility] [address] [place] [address] Roberta Alex MD [address] [place] [address] documented as of this encounter Results * FERRITIN (12/07/2022 10:51 AM CDT) FERRITIN 13.8 8 - 252 NG/ML 12/07/2022 11:31 AM CDT [facility] 12/07/2022 10:5 1 AM CDT Roberta Alex MD LABORATORY Final Result [facility] [address] [place] [address], * IRON SAT PANEL (IRON,IBC,%SAT) (12/07/2022 10:51 AM CDT) IRON 89 50 - 170 MCG/DL 12/07/2022 12:24 PM CDT [facility] IRON BINDING CAPACITY 373 250 - 450 MCG/DL 12/07/2022 12:24 PM CDT [facility] IRON SATURATION 24 % 12:24 PM CDT [facility] Comment:REFERENCE RANGE NOT ESTABLISHED 12/07/2022 10:5 1 AM CDT Roberta Alex MD LABORATORY Final Result Performing Organization Address [facility]/ZIP Co de Phone Number [facility] [address] [place] [id number], * (ABNORMAL) CBC W/DIFF AUTOMATED (12/07/2022 10:51 AM CDT) WBC 7.28 4.00 - 10.80 x10'3/uL 12/07/2022 11:10 AM CDT [facility] RBC 5.13 4.10 - 5.40 x10'6/uL 12/07/2022 11:10 AM CDT [facility] HGB 14.6 12.0 - 16.0 G/DL 12/07/2022 11:10 AM CDT [facility] HCT 46.1 36.0 - 47.0 % 12/07/2022 11:10 AM CDT [facility] MCV 89.9 78.0 - 100.0 FL 12/07/2022 11:10 AM CDT [facility] MCH 28.5 27.0 - 31.0 PG 12/07/2022 11:10 AM CDT [facility] MCHC 31.7(L) 33.0 - 36.0 G/DL 12/07/2022 11:10 AM CDT [facility] RDW 13.1 11.5 - 14.5 % 12/07/2022 11:10 AM CDT [facility] PLT 36(L) 150 - 350 x10'3/uL 12/07/2022 11:10 AM CDT [facility] MPV RESULTS NOT AVAILABLE 7.4 - 10.4 FL 12/07/2022 11:10 AM CDT [facility] CBC COMMENT NORMAL REFERENCE RANGE NOT ESTABLISHED FOR THE PROPORTIONAL LEUKOCYTE DIFFERENTIAL. 12/07/2022 11:10 AM CDT [facility] NEUTROPHILS % 56.4 % 12/07/2022 11:34 AM CDT [facility] LYMPHOCYTES % 30.8 % 12/07/2022 11:34 AM CDT [facility] MONOCYTES % 6.9 % 12/07/2022 11:34 AM CDT [facility] EOSINOPHILS % 4.8 % 12/07/2022 11:34 AM CDT [facility] BASOPHILS % 1.0 % 12/07/2022 11:34 AM CDT [facility] IMMATURE GRANS % 0.1 % 12/08/19 11:34 AM CDT [facility] NRBC 0.0 % 12/07/2022 11:34 AM CDT [facility] ABS. NEUTROPHILS 4.11 1.60 - 8.30 x10'3/uL 12/07/2022 11:34 AM CDT [facility] ABS. LYMPHOCYTES 2.24 0.80 - 4.70 x10'3/uL 12/07/2022 11:34 AM CDT [facility] ABS. MONOCYTES 0.50 0.00 - 1.50 x10'3/uL 12/07/2022 11:34 AM CDT [facility] ABS. EOSINOPHILS 0.35 0.00 - 0.40 x10'3/uL 12/07/2022 11:34 AM CDT [facility] ABS. BASOPHILS 0.07 0.00 - 0.20 x10'3/uL 12/07/2022 11:34 AM CDT [facility] ABS. IMMATURE GRANULOCYTES 0.01 0.00 - 0.03 x10'3/uL 12/07/2022 11:34 AM CDT [facility] ABS. NUCLEATED RBC'S 0.00 0.00 x10'3/uL 12/07/2022 11:34 AM CDT [facility] PLT MORPH. DECREASED 12/07/2022 11:34 AM CDT [facility] RBC MORPHOLOGY 1+ 12/07/2022 11:34 AM CDT [facility] Comment: ANISOCYTOSIS 1+ POIKILOCYTOSIS 12/07/2022 10:5 1 AM CDT Roberta Alex MD LABORATORY Final Result [facility] [address] [employer] [place] [address], documented in this encounter Visit Diagnoses Diagnosis Thrombocytopenia (CMS/HCC)- Primary Thrombocytopenia, unspecified documented in this encounter Additional Health Concerns Infection Onset Date Last Indicated Resolved Time MRSA 06/05/2021 06/05/2021 documented as of this encounter Care Teams Account Retention Representative Relationship Specialty Start Date End Date Alejandro Bleivns MD PCP - General FAMILY PRACTICE 12/10/19 documented as of this encounter
--- OUTSIDE RECORDS SUMMARY | 2024-07-11 09:56 | XMS_ITS | Encounter Summary ---
Author Organization [facility] Address [address] [place] [address]. [place], [place] [address] [place] [address] Care Team Providers Care Cheese Processor Name Role Phone Alejandro Blevins MD Primary Care Provider [phone] Encounter Details Date Type Department Care Team [...] on file Legal Sex Female 11:30 PM IP LITIGATION ASSOCIATE Gender Identity Female 11/10/2021 3:09 PM [...] Assessment Author Status No 07/30/2020 10:48 PM IP LITIGATION ASSOCIATE Acti ve * RETIRED Are you blind or do you have serious difficulty seeing, even when wearing glasses? Answer Date of Assessment Author Status No 07/30/2020 10:46 PM IP LITIGATION ASSOCIATE Acti ve * Do you have serious difficulty walking or climbing stairs? Answer Date of Assessment Author Status No 07/30/2020 10:46 PM IP LITIGATION ASSOCIATE Nella Le RN Active * Do you have difficulty dressing or bathing? Answer Date of Assessment Author Status No 07/30/2020 10:46 PM IP LITIGATION ASSOCIATE Nella Le RN Active * Because of a physical, mental, or emotional condition, do you have difficulty doing errands alone such as visiting a doctor's office or shopping? Answer Date of Assessment Author Status No 07/30/2020 10:46 PM IP LITIGATION ASSOCIATE Nella Le RN Active documented as of this encounter Mental Status * Because of a physical, mental, or emotional condition, do you have serious difficulty concentrating, remembering, or making decisions? Answer Entry Date Author Status No 07/30/2020 10:46 PM IP LITIGATION ASSOCIATE Nella Le RN Active documented in this encounter Plan of Treatment Upcoming Encounters Date Type Department Care Team (Late st Contact Info) Description 09/25/2024 11:30 AM IP LITIGATION ASSOCIATE Appointment [facility] [address] [address] Roberta Alex MD [address] [place] [phone] 09/25/2024 11:40 AM IP LITIGATION ASSOCIATE Office Visit [facility] [address] [address] Roberta Alex MD [address] [place] [address] documented as of this encounter Visit Diagnoses Not on filedocumented in this encounter Additional Health Concerns Infection Onset Date Last Indicated Resolved Time MRSA 06/05/2021 06/05/2021 documented as of this encounter Care Teams Cheese Processor Relationship Specialty Start Date End Date Alejandro Blevins MD PCP - General FAMILY PRACTICE 12/10/19 documented as of this encounter
--- OUTSIDE RECORDS SUMMARY | 2024-07-11 09:57 | XMS_ITS | Encounter Summary ---
Author Organization [facility] Address [address] [place] [address]. [place], [place] [address] [place] [address] Care Team Providers Care Laser Engraver Name Role Phone Alejandro Blevins MD Primary Care Provider [phone] Encounter Details Date Type Department Care Team [...] on file Legal Sex Female 11:30 PM SILVER DESIGNER Gender Identity Female 11/10/2021 3:09 PM CDT Sexual Orientation Straight 11/10/2021 3: 09 PM CDT COVID-19 Exposure Response Date Recorded In the last 10 days, have yo u been in contact with someone who was confirmed or suspected to have Coronavirus/COVID-19? No / Unsure 09/26/2021 12:13 AM SILVER DESIGNER documented as of this encounter Functional Status * RETIRED Are you deaf or do you have serious difficulty hearing Answer Date of Assessment Author Status No 07/30/2020 10:48 PM SILVER DESIGNER Acti ve * RETIRED Are you blind or do you have serious difficulty seeing, even when wearing glasses? Answer Date of Assessment Author Status No 07/30/2020 10:46 PM SILVER DESIGNER Acti ve * Do you have serious difficulty walking or climbing stairs? Answer Date of Assessment Author Status No 07/30/2020 10:46 PM SILVER DESIGNER Nella Le RN Active * Do you have difficulty dressing or bathing? Answer Date of Assessment Author Status No 07/30/2020 10:46 PM SILVER DESIGNER Nella Le RN Active * Because of a physical, mental, or emotional condition, do you have difficulty doing errands alone such as visiting a doctor's office or shopping? Answer Date of Assessment Author Status No 07/30/2020 10:46 PM SILVER DESIGNER Nella Le RN Active documented as of this encounter Mental Status * Because of a physical, mental, or emotional condition, do you have serious difficulty concentrating, remembering, or making decisions? Answer Entry Date Author Status No 07/30/2020 10:46 PM SILVER DESIGNER Nella Le RN Active documented in this encounter Plan of Treatment Upcoming Encounters Date Type Department Care Team (Late st Contact Info) Description 09/25/2024 11:30 AM SILVER DESIGNER Appointment [facility] [address] [address] Roberta Alex MD [address] [place] [phone] 09/25/2024 11:40 AM SILVER DESIGNER Office Visit [facility] [address] [address] Roberta Alex MD [address] [place] [address] documented as of this encounter Visit Diagnoses Not on filedocumented in this encounter Additional Health Concerns Infection Onset Date Last Indicated Resolved Time MRSA 06/05/2021 06/05/2021 documented as of this encounter Care Teams Laser Engraver Relationship Specialty Start Date End Date Alejandro Blevins MD PCP - General FAMILY PRACTICE 12/10/19 documented as of this encounter
--- OUTSIDE RECORDS SUMMARY | 2024-07-11 09:57 | XMS_ITS | Encounter Summary ---
Author Organization [facility] Address [address] [place] [address]. [place], [place] [id number] [place] [address] Care Team Providers Care Rail Crew Member Name Role Phone Alejandro Blevins MD Primary Care Provider [phone] Encounter Details Date Type Department Care Team [...] file Legal Sex Female 11:30 PM DATA PROCESSING SPECIALIST Gender Identity Female 11/10/2021 3:09 PM [...] Author Status No 07/30/2020 10:48 PM DATA PROCESSING SPECIALIST Acti ve * RETIRED Are you blind or do you have serious difficulty seeing, even when wearing glasses? Answer Date of Assessment Author Status No 07/30/2020 10:46 PM DATA PROCESSING SPECIALIST Acti ve * Do you have serious difficulty walking or climbing stairs? Answer Date of Assessment Author Status No 07/30/2020 10:46 PM DATA PROCESSING SPECIALIST Nella Le RN Active * Do you have difficulty dressing or bathing? Answer Date of Assessment Author Status No 07/30/2020 10:46 PM DATA PROCESSING SPECIALIST Nella Le RN Active * Because of a physical, mental, or emotional condition, do you have difficulty doing errands alone such as visiting a doctor's office or shopping? Answer Date of Assessment Author Status No 07/30/2020 10:46 PM DATA PROCESSING SPECIALIST Nella Le RN Active documented as of this encounter Mental Status * Because of a physical, mental, or emotional condition, do you have serious difficulty concentrating, remembering, or making decisions? Answer Entry Date Author Status No 07/30/2020 10:46 PM DATA PROCESSING SPECIALIST Nella Le RN Active documented in this encounter Plan of Treatment Upcoming Encounters Date Type Department Care Team (Late st Contact Info) Description 09/25/2024 11:30 AM DATA PROCESSING SPECIALIST Appointment [facility] [address] [place] [address] Roberta Alex MD [address] [place] [address] 09/25/2024 11:40 AM DATA PROCESSING SPECIALIST Office Visit [facility] [address] [place] [address] Roberta Alex MD [address] [place] [address] documented as of this encounter Visit Diagnoses Not on filedocumented in this encounter Additional Health Concerns Infection Onset Date Last Indicated Resolved Time MRSA 06/05/2021 06/05/2021 documented as of this encounter Care Teams Rail Crew Member Relationship Specialty Start Date End Date Alejandro Blevins MD PCP - General FAMILY PRACTICE 12/10/19 documented as of this encounter
--- OUTSIDE RECORDS SUMMARY | 2024-07-11 09:57 | XMS_ITS | Encounter Summary ---
Author Organization [facility] Address [address] [place] [address]. [place] [address] [place] [address] Care Team Providers Care Retail Agent Name Role Phone Alejandro Blevins MD Primary Care Provider [phone] Encounter Details Date Type Department Care Team [...] on file Legal Sex Female 11:30 PM CHRISTIAN MINISTRIES PROFESSOR Gender Identity Female 11/10/2021 3:09 PM [...] Assessment Author Status No 07/30/2020 10:48 PM CHRISTIAN MINISTRIES PROFESSOR Acti ve * RETIRED Are you blind or do you have serious difficulty seeing, even when wearing glasses? Answer Date of Assessment Author Status No 07/30/2020 10:46 PM CHRISTIAN MINISTRIES PROFESSOR Acti ve * Do you have serious difficulty walking or climbing stairs? Answer Date of Assessment Author Status No 07/30/2020 10:46 PM CHRISTIAN MINISTRIES PROFESSOR Nella Le RN Active * Do you have difficulty dressing or bathing? Answer Date of Assessment Author Status No 07/30/2020 10:46 PM CHRISTIAN MINISTRIES PROFESSOR Nella Le RN Active * Because of a physical, mental, or emotional condition, do you have difficulty doing errands alone such as visiting a doctor's office or shopping? Answer Date of Assessment Author Status No 07/30/2020 10:46 PM CHRISTIAN MINISTRIES PROFESSOR Nella Le RN Active documented as of this encounter Mental Status * Because of a physical, mental, or emotional condition, do you have serious difficulty concentrating, remembering, or making decisions? Answer Entry Date Author Status No 07/30/2020 10:46 PM CHRISTIAN MINISTRIES PROFESSOR Nella Le RN Active documented in this encounter Plan of Treatment Upcoming Encounters Date Type Department Care Team (Late st Contact Info) Description 09/25/2024 11:30 AM CHRISTIAN MINISTRIES PROFESSOR Appointment [facility] [address] [place] [address] Roberta Alex MD [address] [place] [id number] 09/25/2024 11:40 AM CHRISTIAN MINISTRIES PROFESSOR Office Visit [facility] [address] [place] [address] Roberta Alex MD [address] [place] [address] documented as of this encounter Visit Diagnoses Not on filedocumented in this encounter Additional Health Concerns Infection Onset Date Last Indicated Resolved Time MRSA 06/05/2021 06/05/2021 documented as of this encounter Care Teams Retail Agent Relationship Specialty Start Date End Date Alejandro Blevins MD PCP - General FAMILY PRACTICE 12/10/19 documented as of this encounter
--- OUTSIDE RECORDS SUMMARY | 2024-07-11 09:57 | XMS_ITS | Encounter Summary ---
Author Organization [facility] [place] [facility] Address [address] [place] [address]. [place] [address] [place] [address] Care Team Providers Care Grip Wrapper Name Role Phone Alejandro Blevins MD Primary Care Provider [phone] Reason for Visit * Reason Onset Date Comments Lab Results 11/18/2021 Encounter Details Date Type Department Care Team (Late st Contact Info) Description 11/18/[address] [place] [address] Betty Perez MA Lab Results Social History Tobacco Use Types Packs/Day Years Used Date Smoking Tobacco: Every Day Cigarettes Smokeless Tobacco: Never Alcohol Use Standard Drinks/Week Comments Not Currently 0 (1 standard drink = 0.6 oz pur e alcohol) Comments No Sex and Gender Information Value Date Recorded Sex Assigned at Not on file Legal Sex Female 11:30 PM HEAD ANIMAL TRAINER Gender Identity Female 11/10/2021 3:09 PM CDT [...] Author Status No 07/30/2020 10:48 PM HEAD ANIMAL TRAINER Acti ve * RETIRED Are you blind or do you have serious difficulty seeing, even when wearing glasses? Answer Date of Assessment Author Status No 07/30/2020 10:46 PM HEAD ANIMAL TRAINER Acti ve * Do you have serious [...] Contact Info) Description 09/25/2024 11:30 AM HEAD ANIMAL TRAINER Appointment [facility] [address] [place] [address] Roberta Alex MD [address] [place], [place] [id number] 09/25/2024 11:40 AM HEAD ANIMAL TRAINER Office Visit [facility] [address] [place] [address] Roberta Alex MD [address] [place], [place] [id number] documented as of this encounter Visit Diagnoses Not on filedocumented in this encounter Additional Health Concerns Infection Onset Date Last Indicated Resolved Time MRSA 06/05/2021 06/05/2021 documented as of this encounter Care Teams Grip Wrapper Relationship Specialty Start Date End Date Alejandro Blevins MD PCP - General FAMILY PRACTICE 12/10/19 documented as of this encounter
--- OUTSIDE RECORDS SUMMARY | 2024-07-11 09:57 | XMS_ITS | Encounter Summary ---
Author Organization [facility] Address [address] [place] [address]. [place] [address] [place] [address] Care Team Providers Care Industrial Psychology Teacher Name Role Phone Alejandro Blevins MD Primary Care Provider [phone] Reason for Visit * Reason Onset Date Comments Appointment Request 10/19/2021 Encounter Details Date Type Department Care Team ([facility] Contact Info) Description 10/19/[address] [place] [address] Roberta Alex MD [address] [place] [address] Appointment Request Social History Tobacco Use Types Packs/Day Years Used Date Smoking Tobacco: Every Day Cigarettes Smokeless Tobacco: Never Alcohol Use Standard Drinks/Week Comments Not Currently 0 (1 standard drink = 0.6 oz pur e alcohol) Comments No Sex and Gender Information Value Date Recorded Sex Assigned at Not on file Legal Sex Female 11:30 PM HOSIERY MATER Gender Identity Female 11/10/2021 3:09 PM CDT [...] Assessment Author Status No 07/30/2020 10:48 PM HOSIERY MATER Acti ve * RETIRED Are you blind or do you have serious difficulty seeing, even when wearing glasses? Answer Date of Assessment Author Status No 07/30/2020 10:46 PM HOSIERY MATER Acti ve * Do you have serious [...] before any orders can be given to [facility]. documented in this encounter Plan of Treatment Upcoming Encounters Date Type Department Care Team (Late st Contact Info) Description 09/25/2024 11:30 AM HOSIERY MATER Appointment [facility] [place] [address] Roberta Alex MD [address] [place] [address] 09/25/2024 11:40 AM HOSIERY MATER Office Visit [facility] [place] [address] Roberta Alex MD [address] [place], [place] 156261 documented as of this encounter Visit Diagnoses Not on filedocumented in this encounter Additional Health Concerns Infection Onset Date Last Indicated Resolved Time MRSA 06/05/2021 06/05/2021 documented as of this encounter Care Teams Industrial Psychology Teacher Relationship Specialty Start Date End Date Alejandro Blevins MD PCP - General FAMILY PRACTICE 12/10/19 documented as of this encounter
--- OUTSIDE RECORDS SUMMARY | 2024-07-11 09:57 | XMS_ITS | Encounter Summary ---
Author Organization [facility] Address [address] [place] [address]. [place], [place] [address] [place] [address] Care Team Providers Care Motor Vehicle Compliance Analyst Name Role Phone Alejandro Blevins MD Primary Care Provider [phone] Encounter Details Date Type Department Care Team [...] Legal Sex Female 11:30 PM MEDICAL COLLECTIONS Gender Identity Female 11/10/2021 3:09 PM [...] Author Status No 07/30/2020 10:48 PM MEDICAL COLLECTIONS Acti ve * RETIRED Are you blind or do you have serious difficulty seeing, even when wearing glasses? Answer Date of Assessment Author Status No 07/30/2020 10:46 PM MEDICAL COLLECTIONS Acti ve * Do you have serious difficulty walking or climbing stairs? Answer Date of Assessment Author Status No 07/30/2020 10:46 PM MEDICAL COLLECTIONS Nella Le RN Active * Do you have difficulty dressing or bathing? Answer Date of Assessment Author Status No 07/30/2020 10:46 PM MEDICAL COLLECTIONS Nella Le RN Active * Because of a physical, mental, or emotional condition, do you have difficulty doing errands alone such as visiting a doctor's office or shopping? Answer Date of Assessment Author Status No 07/30/2020 10:46 PM MEDICAL COLLECTIONS Nella Le RN Active documented as of this encounter Mental Status * Because of a physical, mental, or emotional condition, do you have serious difficulty concentrating, remembering, or making decisions? Answer Entry Date Author Status No 07/30/2020 10:46 PM MEDICAL COLLECTIONS Nella Le RN Active documented in this encounter Plan of Treatment Upcoming Encounters Date Type Department Care Team (Late st Contact Info) Description 09/25/2024 11:30 AM MEDICAL COLLECTIONS Appointment [facility] [address] [place] [address] Roberta Alex MD [address] [place] [address] 1527[address] 09/25/2024 11:40 AM MEDICAL COLLECTIONS Office Visit [facility] [address] [place] [address] Roberta Alex MD [address] [place] [address] documented as of this encounter Visit Diagnoses Not on filedocumented in this encounter Additional Health Concerns Infection Onset Date Last Indicated Resolved Time MRSA 06/05/2021 06/05/2021 documented as of this encounter Care Teams Motor Vehicle Compliance Analyst Relationship Specialty Start Date End Date Alejandro Blevins MD PCP - General FAMILY PRACTICE 12/10/19 documented as of this encounter
--- OUTSIDE RECORDS SUMMARY | 2024-07-11 09:57 | XMS_ITS | Encounter Summary ---
Author Organization [facility] Address [address] [place] [address]. [place], [place] [address] [place] [address] Care Team Providers Care Title Officer Name Role Phone Alejandro Blevins MD Primary Care Provider [phone] Encounter Details Date Type Department Care Team (Late st Contact Info) Description 10/07/2022 8:25 AM CDT - 10/07/2022 11:59 PM CDT Hospital Encounter [facility] [address] [place] [address] Zeeshan Anderson, [facility]- [address] [place] [address] Discharge Disposition: Home or Self Care (Routine Discharge) Social History Tobacco Use Types Packs/Day Years Used Date Smoking Tobacco: Every Day Cigarettes Smokeless Tobacco: Never Alcohol Use Standard Drinks/Week Comments Not Currently 0 (1 standard drink = 0.6 oz pur e alcohol) Comments No Sex and Gender Information Value Date Recorded Sex Assigned at Not on file Legal Sex Female 11:30 PM NETWORK SECURITY ANALYST Gender Identity Female 11/10/2021 3:09 PM [...] Assessment Author Status No 07/30/2020 10:48 PM NETWORK SECURITY ANALYST Acti ve * RETIRED Are you blind or do you have serious difficulty seeing, even when wearing glasses? Answer Date of Assessment Author Status No 07/30/2020 10:46 PM NETWORK SECURITY ANALYST Acti ve * Do you have [...] st Contact Info) Description 09/25/2024 11:30 AM NETWORK SECURITY ANALYST Appointment [facility] [address] [place] [address] Roberta Alex MD [address] [place] [address] 09/25/2024 11:40 AM NETWORK SECURITY ANALYST Office Visit [facility] [place] [address] Roberta Alex MD [address] [place] [address] documented as of this encounter Procedures Procedure [...] Silvestre MD, 10/07/2022 1:01 PM Zeeshan Anderson EAR MOLD LABORATORY TECHNICIAN-BC GENERAL IMAGING Final Resu lt * XR [...] MD, 10/07/2022 1:00 PM us Zeeshan Anderson EAR MOLD LABORATORY TECHNICIAN-BC GENERAL IMAGING Final Resu lt documented in this encounter Visit Diagnoses Diagnosis Right elbow pain Pain in joint, upper arm Acute pain of right shoulder documented in this encounter Additional Health Concerns Infection Onset Date Last Indicated Resolved Time MRSA 06/05/2021 06/05/2021 documented as of this encounter Care Teams Title Officer Relationship Specialty Start Date End Date Alejandro Blevins MD PCP - General FAMILY PRACTICE 12/10/19 documented as of this encounter
--- OUTSIDE RECORDS SUMMARY | 2024-07-11 09:57 | XMS_ITS | Encounter Summary ---
Author Organization [facility] Address [address] [place] [address]. [place] [address] [place] [address] Care Team Providers Care Needle Setter Name Role Phone Alejandro Blevins MD Primary Care Provider [phone] Encounter Details Date Type Department Care Team (Latest Contact Info) Description 11/17/2021 11:30 AM CDT - 11/17/2021 11:59 PM CDT Hospital Encounter [address] [place] [address] Roberta Alex MD [address] [place] [address] Discharge Disposition: Home or Self Care (Routine Discharge) Social History Tobacco Use Types Packs/Day Years Used Date Smoking Tobacco: Every Day Cigarettes Smokeless Tobacco: Never Alcohol Use Standard Drinks/Week Comments Not Currently 0 (1 standard drink = 0.6 oz pur e alcohol) Comments No Sex and Gender Information Value Date Recorded Sex Assigned at Not on file Legal Sex Female 11:[address]OTOGRAPHER Gender Identity Female 11/10/2021 3:09 PM [...] Assessment Author Status No 07/30/2020 10:[address] PHOTOGRAPHER Acti ve * RETIRED Are you blind or do you have serious difficulty seeing, even when wearing glasses? Answer Date of Assessment Author Status No 07/30/2020 10:[address] PHOTOGRAPHER Acti ve * Do you have [...] st Contact Info) Description 09/25/2024 11:[address]OTOGRAPHER Appointment [facility] [address] [place] [address] Roberta Alex MD [address] [place] [address] 09/25/2024 11:[address]GRAPHER Office Visit [facility] [place] [address] Roberta Alex MD [address] [place] [address] documented as of this encounter Procedures Procedure [...] - 252 NG/ML 11/17/2021 12:40 PM CDT [facility] 11/17/2021 12:0 5 PM CDT us Roberta Alex MD LABORATORY Final Result Performing Organization Address City/[facility]/ZIP Co de Phone Number [facility] [address] [place] [address], * VITAMIN B-12 (11/17/2021 12:05 PM CDT) VITAMIN B12 S/P/B 332 193 - 986 PG/ML 11/18/2021 2:04 PM CDT [facility] 11/17/2021 12:0 5 PM CDT us Roberta Alex MD LABORATORY Final Result [facility] [address] [place] [address], [place] [phone] [id number] * (ABNORMAL) IRON SATURATION PNL (FE/TIBC/SAT) (11/17/2021 12:05 PM CDT) IRON 40(L) 50 - 170 MCG/DL 11/17/2021 12:39 PM CDT [facility] IRON BINDING CAPACITY 352 250 - 450 MCG/DL 11/17/2021 12:39 PM CDT [facility] IRON SATURATION 11 % 12:39 PM CDT [facility] Comment:REFERENCE RANGE NOT ESTABLISHED 11/17/2021 12:0 5 PM CDT Roberta Alex MD LABORATORY Final Result [facility] [address] [place] [address], * (ABNORMAL) CBC W/DIFF AUTOMATED (11/17/2021 12:05 PM CDT) WBC 13.5(H) 4.0 - 10.8 x10'3/uL 11/17/2021 1:03 PM CDT [facility] RBC 4.64 4.10 - 5.40 x10'6/uL 11/17/2021 1:03 PM CDT [facility] HGB 13.4 12.0 - 16.0 G/DL 11/17/2021 1:03 PM CDT [facility] HCT 42.5 36.0 - 47.0 % 11/17/2021 1:03 PM CDT [facility] MCV 91.6 78.0 - 100.0 FL 11/17/2021 1:03 PM CDT [facility] MCH 28.9 27.0 - 31.0 PG 11/17/2021 1:03 PM CDT [facility] MCHC 31.5(L) 33.0 - 36.0 G/DL 11/17/2021 1:03 PM CDT [facility] RDW 14.2 11.5 - 14.5 % 11/17/2021 1:03 PM CDT [facility] PLT 63(L) 150 - 350 x10'3/uL 11/17/2021 1:03 PM CDT [facility] MPV NOT AVAILABLE 7.4 - 10.4 FL 11/17/2021 2:41 PM CDT [facility] SEG NEUTROPHILS 81 % 1:07 PM CDT [facility] LYMPHOCYTES 11 % 11/17/2021 1:07 PM CDT [facility] MONOCYTES 5 % 11/17/2021 1:07 PM CDT [facility] EOSINOPHILS 3 % 11/17/2021 1:07 PM CDT [facility] ABS. NEUTROPHILS CALCULATED 10.92(H) 1.60 - 8.30 x10'3/uL 11/17/2021 1:07 PM CDT [facility] ABS. LYMPHOCYTES 1.49 0.80 - 4.70 x10'3/uL 11/17/2021 1:07 PM CDT [facility] ABS. MONOCYTES 0.68 0.10 - 1.50 x10'3/uL 11/17/2021 1:07 PM CDT [facility] ABS. EOSINOPHILS 0.41(H) 0.00 - 0.40 x10'3/uL 11/17/2021 1:07 PM CDT [facility] DIFFERENTIAL COMMENT NORMAL REFERENCE RANGE NOT ESTABLISHED FOR THE PROPORTIONAL LEUKOCYTE DIFFERENTIAL. 11/17/2021 1:07 PM CDT [facility] PLT MORPH. NORMAL 11/17/2021 1:07 PM CDT [facility] RBC MORPHOLOGY NORMAL 11/17/2021 1:07 PM CDT [facility] 11/17/2021 12:0 5 PM CDT Roberta Alex MD LABORATORY Final Result [facility] [address] [employer] [address] [phone] documented in this encounter Visit Diagnoses Diagnosis Iron deficiency anemia, unspecified iron deficiency anemia type documented in this encounter Additional Health Concerns Infection Onset Date Last Indicated Resolved Time MRSA 06/05/2021 06/05/2021 documented as of this encounter Care Teams Needle Setter Relationship Specialty Start Date End Date Alejandro Blevins MD PCP - General FAMILY PRACTICE 12/10/19 documented as of this encounter
--- OUTSIDE RECORDS SUMMARY | 2024-07-11 09:57 | XMS_ITS | Encounter Summary ---
Author Organization [facility] Address [address] [place] [address]. [place] [address] [place] [address] Care Team Providers Care Rn Medication Name Role Phone Alejandro Blevins MD Primary Care Provider [phone] Encounter Details Date Type Department Care Team (Latest Contact Info) Description 01/26/2022 11:54 AM CDT - 01/26/2022 11:59 PM CDT Hospital Encounter [address] [place] [address] Roberta Alex MD [address] [place] [address] Discharge Disposition: Home or Self Care (Routine Discharge) Social History Tobacco Use Types Packs/Day Years Used Date Smoking Tobacco: Every Day Cigarettes Smokeless Tobacco: Never Alcohol Use Standard Drinks/Week Comments Not Currently 0 (1 standard drink = 0.6 oz pur e alcohol) Comments No Sex and Gender Information Value Date Recorded Sex Assigned at Not on file Legal Sex Female 11:30 PM ENGINE SETTER Gender Identity Female 11/10/2021 3:09 PM [...] Assessment Author Status No 07/30/2020 10:48 PM ENGINE SETTER Acti ve * RETIRED Are you blind or do you have serious difficulty seeing, even when wearing glasses? Answer Date of Assessment Author Status No 07/30/2020 10:46 PM ENGINE SETTER Acti ve * Do you have [...] st Contact Info) Description 09/25/2024 11:30 AM ENGINE SETTER [address]oint[address] [facility] [address] [place] [address] Roberta Alex MD [address] [place] [address] 09/25/2024 11:40 AM ENGINE SETTER Office Visit [facility] [place] [address] Roberta Alex MD [address] [place] [address] documented as of this encounter Procedures Procedure Name Priority Date/Time Associated Diagnosis Comments BLOOD BANK - SPECIMEN HOLD Routine 01/26/2022 12:00 PM CDT Thrombocytopenia CBC W/DIFF AUTOMATED Routine 01/26/2022 12:00 PM CDT Thrombocytopenia documented in this encounter Results * Blood Bank - Specimen Hold (01/26/2022 12:00 PM CDT) SAMPLE LAB COLLECTED SPECIMEN 01/26/2022 11:[address] [facility] 01/26/2022 12:0 0 PM CDT us Roberta Alex MD BLOOD BANK TEST ORDERABLES Fin al Result [facility] [address] [place] [address], * (ABNORMAL) CBC W/DIFF AUTOMATED (01/26/2022 12:00 PM CDT) WBC 8.4 4.0 - 10.8 x10'3/uL 01/26/2022 12:[address] [facility] RBC 4.32 4.10 - 5.40 x10'6/uL 01/26/2022 12:[address] [facility] HGB 12.7 12.0 - 16.0 G/DL 01/26/2022 12:[address] [facility] HCT 40.9 36.0 - 47.0 % 01/26/2022 12:[address] [facility] MCV 94.7 78.0 - 100.0 FL 01/26/2022 12:[address] [facility] MCH 29.4 27.0 - 31.0 PG 01/26/2022 12:[address] [facility] MCHC 31.1(L) 33.0 - 36.0 G/DL 01/26/2022 12:[address] [facility] RDW 13.2 11.5 - 14.5 % 01/26/2022 12:[address] [facility] PLT 85(L) 150 - 350 x10'3/uL 01/26/2022 12:[address] [facility] MPV 14.4(H) 7.4 - 10.4 FL 01/26/2022 12:[address] [facility] DIFFERENTIAL COMMENT NORMAL REFERENCE RANGE NOT ESTABLISHED FOR THE PROPORTIONAL LEUKOCYTE DIFFERENTIAL. 01/26/2022 12:[address] [facility] SEG NEUTROPHILS 71.5 % 12:[address] [facility] LYMPHOCYTES 17.5 % 01/26/2022 12:[address] [facility] MONOCYTES 5.8 % 01/26/2022 12:[address] [facility] EOSINOPHILS 4.1 % 01/26/2022 12:[address] [facility] BASOPHILS 0.6 % 01/26/2022 12:[address] [facility] IMMATURE GRANS % 0.5 % 01/27/20 12:[address] [facility] NRBC 0.0 % 01/26/2022 12:[address] [facility] ABS. NEUTROPHILS 6.01 1.60 - 8.30 x10'3/uL 01/26/2022 12:[address] [facility] ABS. LYMPHOCYTES 1.47 0.80 - 4.70 x10'3/uL 01/26/2022 12:[address] [facility] ABS. MONOCYTES 0.49 0.00 - 1.50 x10'3/uL 01/26/2022 12:[address] [facility] ABS. EOSINOPHILS 0.34 0.00 - 0.40 x10'3/uL 01/26/2022 12:[address] [facility] ABS. BASOPHILS 0.05 0.00 - 0.20 x10'3/uL 01/26/2022 12:[address] [facility] ABS. IMMATURE GRANULOCYTES 0.04(H) 0.00 - 0.03 x10'3/uL 01/26/2022 12:[address] [facility] ABS. NUCLEATED RBC'S 0.00 0.00 x10'3/uL 01/26/2022 12:[address] [facility] PLT MORPH. DECREASED 01/26/2022 12:[address] [facility] RBC MORPHOLOGY NORMAL 01/26/2022 12:[address] [facility] 01/26/2022 12:0 0 PM CDT us Roberta Alex MD LABORATORY Final Result [facility] [address] [place] [address], documented in this encounter Visit Diagnoses Diagnosis Thrombocytopenia (CMS/HCC) Thrombocytopenia, unspecified documented in this encounter Additional Health Concerns Infection Onset Date Last Indicated Resolved Time MRSA 06/05/2021 06/05/2021 documented as of this encounter Care Teams Rn Medication Relationship Specialty Start Date End Date Alejandro Blevins MD PCP - General FAMILY PRACTICE 12/10/19 documented as of this encounter
--- OUTSIDE RECORDS SUMMARY | 2024-07-11 09:57 | XMS_ITS | Encounter Summary ---
Author Organization [facility] Address [address] [place] [address]. [place] [address] [place] [address] Care Team Providers Care Legal Paraprofessional Name Role Phone Alejandro Blevins MD Primary Care Provider [phone] Reason for Visit * Reason Onset Date Comments Lab Results 03/18/2022 Encounter Details Date Type Department Care Team ([facility] st Contact Info) Description 03/18/[address] [place] [address] Roberta Alex MD [address] [place] [address] Lab Results Social History Tobacco Use Types Packs/Day Years Used Date Smoking Tobacco: Every Day Cigarettes Smokeless Tobacco: Never Alcohol Use Standard Drinks/Week Comments Not Currently 0 (1 standard drink = 0.6 oz pur e alcohol) Comments No Sex and Gender Information Value Date Recorded Sex Assigned at Not on file Legal Sex Female 11:30 PM ENGINE LATHE SET UP OPERATOR Gender Identity Female 11/10/2021 3:09 PM CDT Sexual Orientation Straight 11/10/2021 3: 09 PM CDT documented as of this encounter Functional Status * RETIRED Are you deaf or do you have serious difficulty hearing Answer Date of Assessment Author Status No 07/30/2020 10:48 PM ENGINE LATHE SET UP OPERATOR Acti ve * RETIRED Are you blind or do you have serious difficulty seeing, even when wearing glasses? Answer Date of Assessment Author Status No 07/30/2020 10:46 PM ENGINE LATHE SET UP OPERATOR Acti ve * Do you have [...] looked over her labs we received from [facility] and they looked good. Patient did state she had COVID last week and is still feeling tired. Patient also believes sheis dehydrate. She was advised to be seen at ED or by her PCP. documented in this encounter Plan of Treatment Upcoming Encounters Date Type Department Care Team (Late st Contact Info) Description 09/25/2024 11:30 AM ENGINE LATHE SET UP OPERATOR Appointment [facility] [address] [place] [address] Roberta Alex MD [address] [place] [address] 09/25/2024 11:40 AM ENGINE LATHE SET UP OPERATOR Office Visit [facility] [place] [address] Roberta Alex MD [address] [place] [address] documented as of this encounter Visit Diagnoses Not on filedocumented in this encounter Additional Health Concerns Infection Onset Date Last Indicated Resolved Time MRSA 06/05/2021 06/05/2021 documented as of this encounter Care Teams Legal Paraprofessional Relationship Specialty Start Date End Date Alejandro Blevins MD PCP - General FAMILY PRACTICE 12/10/19 documented as of this encounter
--- OUTSIDE RECORDS SUMMARY | 2024-07-11 09:57 | XMS_ITS | Encounter Summary ---
Author Organization [facility] Address [address] [place] [address]. [place] [address] [place] [address] Care Team Providers Care Power Ballast Machine Operator Name Role Phone Alejandro Blevins MD Primary Care Provider [phone] Reason for Visit * Reason Onset Date Comments Lab Order 01/26/2022 Encounter Details Date Type Department Care Team (Late st Contact Info) Description 01/26/2022 Telephone [facility] [address] [place] [address] [place] [address] Steffany Clarke RN Lab Order Social History Tobacco Use Types Packs/Day Years Used Date Smoking Tobacco: Every Day Cigarettes Smokeless Tobacco: Never Alcohol Use Standard Drinks/Week Comments Not Currently 0 (1 standard drink = 0.6 oz pur e alcohol) Comments No Sex and Gender Information Value Date Recorded Sex Assigned at Not on file Legal Sex Female 11:30 PM KETTLE TENDER Gender Identity Female 11/10/2021 3:09 PM CDT Sexual Orientation Straight 11/10/2021 3: 09 PM CDT documented as of this encounter Functional Status * RETIRED Are you deaf or do you have serious difficulty hearing Answer Date of Assessment Author Status No 07/30/2020 10:48 PM KETTLE TENDER Acti ve * RETIRED Are you blind or do you have serious difficulty seeing, even when wearing glasses? Answer Date of Assessment Author Status No 07/30/2020 10:46 PM KETTLE TENDER Acti ve * Do you have serious difficulty walking or climbing stairs? Answer Date of Assessment Author Status No 07/30/2020 10:46 PM KETTLE TENDER Nella Le RN Active * Do you have difficulty dressing or bathing? Answer Date of Assessment Author Status No 07/30/2020 10:46 PM KETTLE TENDER Nella Le RN Active * Because [...] st Contact Info) Description 09/25/2024 11:30 AM KETTLE TENDER Appointment [facility] [address] [facility] [facility] [place] [address] Roberta Alex MD [address] [place] [id number] 09/25/2024 11:40 AM KETTLE TENDER Office Visit [facility] [address] [facility] [place] [address] Roberta Alex MD [address] [place] [address] documented as of this encounter Visit Diagnoses Not on filedocumented in this encounter Additional Health Concerns Infection Onset Date Last Indicated Resolved Time MRSA 06/05/2021 06/05/2021 documented as of this encounter Care Teams Power Ballast Machine Operator Relationship Specialty Start Date End Date Alejandro Blevins MD PCP - General FAMILY PRACTICE 12/10/19 documented as of this encounter
--- OUTSIDE RECORDS SUMMARY | 2024-07-11 09:57 | XMS_ITS | Encounter Summary ---
Author Organization [facility] Address [address] [place] [address]. [place], [place] [address] [place] [address] Care Team Providers Care Body Painter Name Role Phone Alejandro Blevins MD Primary Care Provider [phone] Reason for Referral * Physical Medicine (Routine) - Closed Specialty Diagnoses / Procedures Referred By Scarlet guzman Referred To Contact PHYSICAL THERAPY Diagnoses Tendinitis of right rotator cuff Medial epicondylitis of right elbow Procedures OFFICE/OUTPT VISIT,NEW,LEVL III OFFICE/OUTPT VISIT,NEW,LEVL IV OFFICE/OUTPT VISIT,NEW,LEVL V OFFICE/OUTPT VISIT,EST,LEVL III OFFICE/OUTPT VISIT,EST,LEVL IV OFFICE/OUTPT VISIT,EST,LEVL V Janice Anderson FNP-BC [address] [place] [address] Phone: tel: fax: [facility] [address] [place] [address] Phone: tel: fax: Referral ID Status Reason Start Date Expiration Date V isits Requested Visits Authorized [id number] Closed Physical Therapy 10/18/2022 11/18/2023 1 1 Reason for Visit * Reason Onset Date Comments Physical Therapy 10/18/2022 Encounter Details Date Type Department Care Team (Late st Contact Info) Description 10/18/2022 Telephone [facility] [address] [place] [address] Juan A Quintero, RN Physical Therapy Social History Tobacco Use Types Packs/Day Years Used Date Smoking Tobacco: Every Day Cigarettes Smokeless Tobacco: Never Alcohol Use Standard Drinks/Week Comments Not Currently 0 (1 standard drink = 0.6 oz pur e alcohol) Comments No Sex and Gender Information Value Date Recorded Sex Assigned at Not on file Legal Sex Female 11:30 PM LIBRARY ACQUISITIONS TECHNICIAN Gender Identity Female 11/10/2021 3:09 PM [...] Author Status No 07/30/2020 10:48 PM LIBRARY ACQUISITIONS TECHNICIAN Acti ve * RETIRED Are you blind or do you have serious difficulty seeing, even when wearing glasses? Answer Date of Assessment Author Status No 07/30/2020 10:46 PM LIBRARY ACQUISITIONS TECHNICIAN Acti ve * Do you have serious difficulty walking or climbing stairs? Answer Date of Assessment Author Status No 07/30/2020 10:46 PM LIBRARY ACQUISITIONS TECHNICIAN Nella Le RN Active * Do you have difficulty dressing or bathing? Answer Date of Assessment Author Status No 07/30/2020 10:46 PM LIBRARY ACQUISITIONS TECHNICIAN Nella Le RN Active * Because of a physical, mental, or emotional condition, do you have difficulty doing errands alone such as visiting a doctor's office or shopping? Answer Date of Assessment Author Status No 07/30/2020 10:46 PM LIBRARY ACQUISITIONS TECHNICIAN Nella Le RN Active documented as of this encounter Mental Status * Because of a physical, mental, or emotional condition, do you have serious difficulty concentrating, remembering, or making decisions? Answer Entry Date Author Status No 07/30/2020 10:46 PM LIBRARY ACQUISITIONS TECHNICIAN Nella Le RN Active documented in this encounter Progress Notes * Juan A Quintero RN - 10/18/2022 4:39 PM CDT ----- Message from Fanny Martini CNA sent at 10/18/2022 4:32 PM CDT ----- They need the order to be PT there OT is out she had a baby. New order faxed to [facility] in [place] at this time. documented in this encounter Plan of Treatment Upcoming Encounters Date Type Department Care Team (Late st Contact Info) Description 09/25/2024 11:30 AM LIBRARY ACQUISITIONS TECHNICIAN Appointment [facility] [address] [place] [address] [place] [address] Roberta Alex MD [address] [place] [address] 09/25/2024 11:40 AM LIBRARY ACQUISITIONS TECHNICIAN Office Visit [facility] [address] [place], [place] [address] [address] Roberta Alex MD [address] [place] [address] Scheduled Referrals Name Type Priority Associated Diagnoses [...] documented as of this encounter Care Teams Body Painter Relationship Specialty Start Date End Date Alejandro Blevins MD PCP - General FAMILY PRACTICE 12/10/19 documented as of this encounter
--- OUTSIDE RECORDS SUMMARY | 2024-07-11 09:57 | XMS_ITS | Encounter Summary ---
Author Organization [facility] Address [facility] [facility] [place] [address] [place] [address] Care Team Providers Care Housetrailer Servicer Name Role Phone Alejandro Blevins MD Primary Care Provider [phone] Encounter Details Date Type Department Care Team (Late st Contact Info) Description 05/10/2022 Orders Only [address] [place] [address] Roberta Alex MD [address] [place] [address] Social History Tobacco Use Types Packs/Day Years Used Date Smoking Tobacco: Every Day Cigarettes Smokeless Tobacco: Never Alcohol Use Standard Drinks/Week Comments Not Currently 0 (1 standard drink = 0.6 oz pur e alcohol) Comments No Sex and Gender Information Value Date Recorded Sex Assigned at Not on file Legal Sex Female 11:30 PM FORGING DIE SINKER Gender Identity Female 11/10/2021 3:09 PM CDT Sexual Orientation Straight 11/10/2021 3: 09 PM CDT documented as of this encounter Functional Status * RETIRED Are you deaf or do you have serious difficulty hearing Answer Date of Assessment Author Status No 07/30/2020 10:48 PM FORGING DIE SINKER Acti ve * RETIRED Are you blind or do you have serious difficulty seeing, even when wearing glasses? Answer Date of Assessment Author Status No 07/30/2020 10:46 PM FORGING DIE SINKER Acti ve * Do you have serious difficulty walking or climbing stairs? Answer Date of Assessment Author Status No 07/30/2020 10:46 PM FORGING DIE SINKER Bringuet, Nella C, RN Active * Do you have difficulty dressing or bathing? Answer Date of Assessment Author Status No 07/30/2020 10:46 PM FORGING DIE SINKER Nella Le RN Active * Because of [...] st Contact Info) Description 09/25/2024 11:30 AM FORGING DIE SINKER Appointment [facility] [address] [place] [address] Roberta Alex MD [address] [place] [address] 09/25/2024 11:40 AM FORGING DIE SINKER Office Visit [facility] [address] [place] [address] Roberta Alex MD [address] [place] [address] documented as of this encounter Visit Diagnoses Diagnosis Iron deficiency anemia secondary to inadequate dietary iron intake- Primary documented in this encounter Additional Health Concerns Infection Onset Date Last Indicated Resolved Time MRSA 06/05/2021 06/05/2021 documented as of this encounter Care Teams Housetrailer Servicer Relationship Specialty Start Date End Date Alejandro Blevins MD PCP - General FAMILY PRACTICE 12/10/19 documented as of this encounter
--- OUTSIDE RECORDS SUMMARY | 2024-07-11 09:57 | XMS_ITS | Encounter Summary ---
Author Organization [facility] Address [facility] [place] [address] [place] [address] Care Team Providers Care Manager Package Name Role Phone Alejandro Blevins MD Primary Care Provider [phone] Encounter Details Date Type Department Care Team (Late st Contact Info) Description 10/19/2021 Orders Only [address] [place] [address] Roberta Alex MD [address] [place] [address] Social History Tobacco Use Types Packs/Day Years Used Date Smoking Tobacco: Every Day Cigarettes Smokeless Tobacco: Never Alcohol Use Standard Drinks/Week Comments Not Currently 0 (1 standard drink = 0.6 oz pur e alcohol) Comments No Sex and Gender Information Value Date Recorded Sex Assigned at Not on file Legal Sex Female 11:30 PM DISASTER RECOVERY ANALYST Gender Identity Female 11/10/2021 3:09 PM CDT Sexual Orientation Straight 11/10/2021 3: 09 PM CDT COVID-19 Exposure Response Date Recorded In the last 10 days, have yo u been in contact with someone who was confirmed or suspected to have Coronavirus/COVID-19? No / Unsure 09/26/2021 12:13 AM DISASTER RECOVERY ANALYST documented as of this encounter Functional Status * RETIRED Are you deaf or do you have serious difficulty hearing Answer Date of Assessment Author Status No 07/30/2020 10:48 PM DISASTER RECOVERY ANALYST Acti ve * RETIRED Are you blind or do you have serious difficulty seeing, even when wearing glasses? Answer Date of Assessment Author Status No 07/30/2020 10:46 PM DISASTER RECOVERY ANALYST Acti ve * Do you have [...] Date Type Department Care Team (Late st [facility] Info) Description 09/25/2024 11:30 AM DISASTER RECOVERY ANALYST Appointment [facility] [facility] [place] [address] Roberta Alex MD [address] [place] [address] 09/25/2024 11:40 AM DISASTER RECOVERY ANALYST Office Visit [facility] [address] [place] [address] Roberta Alex MD [address] [place] [address] documented as of this encounter Results * FERRITIN (11/17/2021 12:05 PM CDT) FERRITIN 13.4 8 - 252 NG/ML 11/17/2021 12:40 PM CDT [facility] 11/17/2021 12:0 5 PM CDT Roberta Alex MD LABORATORY Final Result [facility] [address] [place] [address], * VITAMIN B-12 (11/17/2021 12:05 PM CDT) Pathologist [facility] VITAMIN B12 S/P/B 332 193 - 986 PG/ML 11/18/2021 2:04 PM CDT [facility] 11/17/2021 12:0 5 PM CDT Roberta Alex MD LABORATORY Final Result [facility] [address] [place] [address], [place] [phone] [id number] * (ABNORMAL) IRON SATURATION PNL (FE/TIBC/SAT) (11/17/2021 12:05 PM CDT) [facility] IRON 40(L) 50 - 170 MCG/DL 11/17/2021 12:39 PM CDT [facility] IRON BINDING CAPACITY 352 250 - 450 MCG/DL 11/17/2021 12:39 PM CDT [facility] IRON SATURATION 11 % 12:39 PM CDT [facility] Comment:REFERENCE RANGE NOT ESTABLISHED 11/17/2021 12:0 5 PM CDT us Roberta Alex MD LABORATORY Final Result [facility] [address] [place] [address], * (ABNORMAL) CBC W/DIFF AUTOMATED (11/17/2021 12:05 PM CDT) Pathologist [facility] WBC 13.5(H) 4.0 - 10.8 x10'3/uL 11/17/2021 1:03 PM CDT [facility] RBC 4.64 4.10 - 5.40 x10'6/uL 11/17/2021 1:03 PM CDT [facility] HGB 13.4 12.0 - 16.0 G/DL 11/17/2021 1:03 PM CDT [facility] HCT 42.5 36.0 - 47.0 % 11/17/2021 1:03 PM CDT [facility] MCV 91.6 78.0 - 100.0 FL 11/17/2021 1:03 PM CDT [facility] MCH 28.9 27.0 - 31.0 PG 11/17/2021 1:03 PM CDT [facility] MCHC 31.5(L) 33.0 - 36.0 G/DL 11/17/2021 1:03 PM CDT [facility] RDW 14.2 11.5 - 14.5 % 11/17/2021 1:03 PM CDT [facility] PLT 63(L) 150 - 350 x10'3/uL 11/17/2021 1:03 PM CDT [facility] MPV NOT AVAILABLE 7.4 - 10.4 FL 11/17/2021 2:41 PM CDT [facility] SEG NEUTROPHILS 81 % 1:07 PM CDT [facility] LYMPHOCYTES 11 % 11/17/2021 1:07 PM CDT [facility] MONOCYTES 5 % 11/17/2021 1:07 PM CDT [facility] EOSINOPHILS 3 % 11/17/2021 1:07 PM CDT [facility] ABS. NEUTROPHILS CALCULATED 10.92(H) 1.60 - 8.30 x10'3/uL 11/17/2021 1:07 PM CDT [facility] ABS. LYMPHOCYTES 1.49 0.80 - 4.70 x10'3/uL 11/17/2021 1:07 PM CDT [facility] ABS. MONOCYTES 0.68 0.10 - 1.50 x10'3/uL 11/17/2021 1:07 PM CDT [facility] ABS. EOSINOPHILS 0.41(H) 0.00 - 0.40 x10'3/uL 11/17/2021 1:07 PM CDT [facility] DIFFERENTIAL COMMENT NORMAL REFERENCE RANGE NOT ESTABLISHED FOR THE PROPORTIONAL LEUKOCYTE DIFFERENTIAL. 11/17/2021 1:07 PM CDT [facility] PLT MORPH. NORMAL 11/17/2021 1:07 PM CDT [facility] RBC MORPHOLOGY NORMAL 11/17/2021 1:07 PM CDT [facility] 11/17/2021 12:0 5 PM CDT us Roberta Alex MD LABORATORY Final Result [facility] [address] [place] [address], documented in this encounter Visit Diagnoses Diagnosis Iron deficiency anemia, unspecified iron deficiency anemia type- Primary documented in this encounter Additional Health Concerns Infection Onset Date Last Indicated Resolved Time MRSA 06/05/2021 06/05/2021 documented as of this encounter Care Teams Manager Package Relationship Specialty Start Date End Date Alejandro Blevins MD PCP - General FAMILY PRACTICE 12/10/19 documented as of this encounter
--- OUTSIDE RECORDS SUMMARY | 2024-07-11 09:57 | XMS_ITS | Encounter Summary ---
Author Organization [facility] Address [address] [place] [address]. [place], [place] [address] [place] [address] Care Team Providers Care Strainer Tender Name Role Phone Alejandro Blevins MD Primary Care Provider [phone] Encounter Details Date Type Department Care Team (Latest Contact Info) Description 06/05/2021 Travel Social History Tobacco Use Types Packs/Day Years Used Date Smoking Tobacco: Former Smokeless Tobacco: Current Comments No Sex and Gender Information Value Date Recorded Sex Assigned at Not on file Legal Sex Female 11:30 PM HAT FORMING MACHINE OPERATOR Gender Identity Female 11/10/2021 3:09 PM CDT Sexual Orientation Straight 11/10/2021 3: 09 PM CDT COVID-19 Exposure Response Date Recorded In the last month, have you been in contact with someone who was confirmed or suspected to have Coronavirus / COVID-19? No / Unsure 06/05/2021 2:01 PM HAT FORMING MACHINE OPERATOR documented as of this encounter Functional Status * RETIRED Are you deaf or do you have serious difficulty hearing Answer Date of Assessment Author Status No 07/30/2020 10:48 PM HAT FORMING MACHINE OPERATOR Acti ve * RETIRED Are you blind or do you have serious difficulty seeing, even when wearing glasses? Answer Date of Assessment Author Status No 07/30/2020 10:46 PM HAT FORMING MACHINE OPERATOR Acti ve * Do you have serious difficulty walking or climbing stairs? Answer Date of Assessment Author Status No 07/30/2020 10:46 PM HAT FORMING MACHINE OPERATOR Nella Le RN Active * Do you have difficulty dressing or bathing? Answer Date of Assessment Author Status No 07/30/2020 10:46 PM HAT FORMING MACHINE OPERATOR Nella Le RN Active * [...] st Contact Info) Description 09/25/2024 11:30 AM HAT FORMING MACHINE OPERATOR Appointment [facility] [address] [place] [address] Roberta Alex MD [address] [place] [address] 09/25/2024 11:40 AM HAT FORMING MACHINE OPERATOR Office Visit [facility] [place] [address] Roberta Alex MD [address] [place] [address] [id number] documented as of this encounter Visit Diagnoses Not on filedocumented in this encounter Additional Health Concerns Infection Onset Date Last Indicated Resolved Time MRSA 06/05/2021 06/05/2021 documented as of this encounter Care Teams Strainer Tender Relationship Specialty Start Date End Date Alejandro Blevins MD PCP - General FAMILY PRACTICE 12/10/19 documented as of this encounter
--- OUTSIDE RECORDS SUMMARY | 2024-07-11 09:57 | XMS_ITS | Encounter Summary ---
Author Organization [facility] Address [address] [place] [address]. [place], [place] [address] [place] [address] Care Team Providers Care School Teacher Name Role Phone Alejandro Blevins MD Primary Care Provider [phone] Reason for Referral * Imaging (Routine) - Closed Specialty Diagnoses / Procedures Referred By Scarlet guzman Referred To Contact RADIOLOGY Diagnoses Tendinitis of right rotator cuff Procedures MRI SHOULDER RT WO CON Zeeshan Anderson FNP-BC [address] [place] [address] Phone: tel: fax: Referral ID Status Reason Start Date Expiration Date Visits Re quested Visits Authorized [id number] Closed 10/07/2022 10/08/2023 1 1 Reason for Visit * Imaging (Routine) - Closed Specialty Diagnoses / Procedures Referred By Scarlet guzman Referred To Contact RADIOLOGY Diagnoses Tendinitis of right rotator cuff Procedures MRI SHOULDER RT WO CON Zeeshan Anderson FNP-BC [address] [place] [address] Phone: tel: fax: Referral ID Status Reason Start Date Expiration Date Visits Re quested Visits Authorized [id number] Closed 10/07/2022 10/08/2023 1 1 Encounter Details Date Type Department Care Team (Late st Contact Info) Description 10/22/2022 9:56 AM CDT - 10/22/2022 11:59 PM CDT Hospital Encounter [facility] [address] [place] [address] Zeeshan Anderson, [facility] [address] [place] [address] Discharge Disposition: Home or Self Care (Routine Discharge) Social History Tobacco Use Types Packs/Day Years Used Date Smoking Tobacco: Every Day Cigarettes Smokeless Tobacco: Never Alcohol Use Standard Drinks/Week Comments Not Currently 0 (1 standard drink = 0.6 oz pur e alcohol) Comments No Sex and Gender Information Value Date Recorded Sex Assigned at Not on file Legal Sex Female 11:30 PM PAPER CUP HANDLE MACHINE OPERATOR Gender Identity Female 11/10/2021 3:09 [...] Assessment Author Status No 07/30/2020 10:48 PM PAPER CUP HANDLE MACHINE OPERATOR Acti ve * RETIRED Are you blind or do you have serious difficulty seeing, even when wearing glasses? Answer Date of Assessment Author Status No 07/30/2020 10:46 PM PAPER CUP HANDLE MACHINE OPERATOR Acti ve * Do you [...] st Contact Info) Description 09/25/2024 11:30 AM PAPER CUP HANDLE MACHINE OPERATOR [address]ment [address] [address] Roberta Alex MD [address] [place] [address] 09/25/2024 11:40 AM PAPER CUP HANDLE MACHINE OPERATOR Office Visit [facility] [address] [place], [place] [address] [place] [address] Roberta Alex MD [address] [place] [address] documented as of this encounter Procedures Procedure [...] MD, 10/22/2022 3:49 PM us Zeeshan Anderson COAL YARD SUPERVISOR-BC MRI Final Resu lt documented in this encounter Visit Diagnoses Diagnosis Tendinitis of right rotator cuff Disorders of bursae and tendons in shoulder region, unspecified documented in this encounter Additional Health Concerns Infection Onset Date Last Indicated Resolved Time MRSA 06/05/2021 06/05/2021 documented as of this encounter Care Teams School Teacher Relationship Specialty Start Date End Date Alejandro Blevins MD PCP - General FAMILY PRACTICE 12/10/19 documented as of this encounter
--- OUTSIDE RECORDS SUMMARY | 2024-07-11 09:57 | XMS_ITS | Encounter Summary ---
Author Organization [facility] Address [address] [place] [address]. [place], [place] [address] [place] [address] Care Team Providers Care Senior Ui Developer Name Role Phone Alejandro Blevins MD Primary Care Provider [phone] Encounter Details Date Type Department Care Team [...] on file Legal Sex Female 11:30 PM PROGRAM CONTROL ANALYST Gender Identity Female 11/10/2021 3:09 PM [...] Assessment Author Status No 07/30/2020 10:48 PM PROGRAM CONTROL ANALYST Acti ve * RETIRED Are you blind or do you have serious difficulty seeing, even when wearing glasses? Answer Date of Assessment Author Status No 07/30/2020 10:46 PM PROGRAM CONTROL ANALYST Acti ve * Do you have serious difficulty walking or climbing stairs? Answer Date of Assessment Author Status No 07/30/2020 10:46 PM PROGRAM CONTROL ANALYST Nella Le RN Active * Do you have difficulty dressing or bathing? Answer Date of Assessment Author Status No 07/30/2020 10:46 PM PROGRAM CONTROL ANALYST Nella Le RN Active * Because of a physical, mental, or emotional condition, do you have difficulty doing errands alone such as visiting a doctor's office or shopping? Answer Date of Assessment Author Status No 07/30/2020 10:46 PM PROGRAM CONTROL ANALYST Nella Le RN Active documented as of this encounter Mental Status * Because of a physical, mental, or emotional condition, do you have serious difficulty concentrating, remembering, or making decisions? Answer Entry Date Author Status No 07/30/2020 10:46 PM PROGRAM CONTROL ANALYST Nella Le RN Active documented in this encounter Plan of Treatment Upcoming Encounters Date Type Department Care Team (Late st Contact Info) Description 09/25/2024 11:30 AM PROGRAM CONTROL ANALYST Appointment [facility] [address] [place] [address] Roberta Alex MD [address] [place] [address] 09/25/2024 11:40 AM PROGRAM CONTROL ANALYST Office Visit [facility] [address] [place] [address] Roberta Alex MD [address] [place] [address] documented as of this encounter Visit Diagnoses Not on filedocumented in this encounter Additional Health Concerns Infection Onset Date Last Indicated Resolved Time MRSA 06/05/2021 06/05/2021 documented as of this encounter Care Teams Senior Ui Developer Relationship Specialty Start Date End Date Alejandro Blevins MD PCP - General FAMILY PRACTICE 12/10/19 documented as of this encounter
--- OUTSIDE RECORDS SUMMARY | 2024-07-11 09:57 | XMS_ITS | Encounter Summary ---
Author Organization [facility] Address [address] [place] [address]. [place] [address] [place] [address] Care Team Providers Care Ammonium Nitrate Crystallizer Name Role Phone Alejandro Blevins MD Primary Care Provider [phone] Reason for Visit * Reason Onset Date Comments Lab Order 01/26/2022 Encounter Details Date Type Department Care Team (Late st Contact Info) Description 01/26/[address] [place] [address] Roberta Alex MD [address] [place] [address] Lab Order Social History Tobacco Use Types Packs/Day Years Used Date Smoking Tobacco: Every Day Cigarettes Smokeless Tobacco: Never Alcohol Use Standard Drinks/Week Comments Not Currently 0 (1 standard drink = 0.6 oz pur e alcohol) Comments No Sex and Gender Information Value Date Recorded Sex Assigned at Not on file Legal Sex Female 11:30 PM DIRECT ENTRY MIDWIFE Gender Identity Female 11/10/2021 3:09 PM CDT Sexual Orientation Straight 11/10/2021 3: 09 PM CDT documented as of this encounter Functional Status * RETIRED Are you deaf or do you have serious difficulty hearing Answer Date of Assessment Author Status No 07/30/2020 10:48 PM DIRECT ENTRY MIDWIFE Acti ve * RETIRED Are you blind or do you have serious difficulty seeing, even when wearing glasses? Answer Date of Assessment Author Status No 07/30/2020 10:46 PM DIRECT ENTRY MIDWIFE Acti ve * Do you have serious [...] st Contact Info) Description 09/25/2024 11:30 AM DIRECT ENTRY MIDWIFE Appointment [facility] [address] [place] [address] Roberta Alex MD [address] [place] [address] 09/25/2024 11:40 AM DIRECT ENTRY MIDWIFE Office Visit [facility] [address] [place] [address] Roberta Alex MD [address] [place] [address] documented as of this encounter Visit Diagnoses Not on filedocumented in this encounter Additional Health Concerns Infection Onset Date Last Indicated Resolved Time MRSA 06/05/2021 06/05/2021 documented as of this encounter Care Teams Ammonium Nitrate Crystallizer Relationship Specialty Start Date End Date Alejandro Blevins MD PCP - General FAMILY PRACTICE 12/10/19 documented as of this encounter
--- OUTSIDE RECORDS SUMMARY | 2024-07-11 09:57 | XMS_ITS | Encounter Summary ---
Author Organization [facility] Address [address] [place] [address]. [place] [address] [place] [address] Care Team Providers Care Director Personal Name Role Phone Alejandro Blevins MD Primary Care Provider [phone] Reason for Visit * Reason Comments Follow Up Thrombocytopenia/ Me dical Clearance for [facility] Tooth Extraction Encounter Details Date Type Department Care Team (Late st Contact Info) Description 11/17/2021 12:00 PM CDT Office Visit [address] [place] [address] Roberta Alex MD [address] [place], [place] [address] Follow Up (Thrombocytopenia/ Medical Clearance for [facility] Tooth Extraction) Social History Tobacco Use Types Packs/Day Years Used Date Smoking Tobacco: Every Day Cigarettes Smokeless Tobacco: Never Alcohol Use Standard Drinks/Week Comments Not Currently 0 (1 standard drink = 0.6 oz pur e alcohol) Comments No Sex and Gender Information Value Date Recorded Sex Assigned at Not on file Legal Sex Female 11:30 PM LEAD NITRATE PROCESSOR Gender Identity Female 11/10/2021 3:09 PM CDT [...] Body Mass Index 28.09 09/26/2021 12:32 AM LEAD NITRATE PROCESSOR documented in this encounter Functional Status * RETIRED Are you deaf or do you have serious difficulty hearing Answer Date of Assessment Author Status No 07/30/2020 10:48 PM LEAD NITRATE PROCESSOR Acti ve * RETIRED Are you blind or do you have serious difficulty seeing, even when wearing glasses? Answer Date of Assessment Author Status No 07/30/2020 10:46 PM LEAD NITRATE PROCESSOR Acti ve * Do you have serious difficulty walking or climbing stairs? Answer Date of Assessment Author Status No 07/30/2020 10:46 PM LEAD NITRATE PROCESSOR Nella Le RN Active * Do you have difficulty dressing or bathing? Answer Date of Assessment Author Status No 07/30/2020 10:46 PM LEAD NITRATE PROCESSOR Nella Le RN Active * Because of a physical, mental, or emotional condition, do you have difficulty doing errands alone such as visiting a doctor's office or shopping? Answer Date of Assessment Author Status No 07/30/2020 10:46 PM LEAD NITRATE PROCESSOR Nella Le RN Active documented as of this encounter Mental Status * Because of a physical, mental, or emotional condition, do you have serious difficulty concentrating, remembering, or making decisions? Answer Entry Date Author Status No 07/30/2020 10:46 PM LEAD NITRATE PROCESSOR Nella Le RN Active documented in this encounter Progress Notes * Roberta Alex MD - 11/17/2021 12:00 PM CDT HEMATOLOGY/ONCOLOGY NOTE IDENTIFYING DATA: Hillary Smalls is a 31-year-old female REASON FOR VISIT: Follow Up (Thrombocytopenia/ Medical Clearance for [facility] Tooth Extraction) HEMATOLOGY HISTORY: Hillary Smalls is a 30-year-old female with hx of ITP, hepatitis C, polysubstance abuse,established care with me when she was with twins at 20 weeks gestation in 11/2019 and had no care. 1. ITP: Previously followed with [facility] branch lead Dr. Dick Bonilla. - 11/2019- 03/2020: Platelet [...] s/p hepatitis C antiviral treatment.?? Follows with [facility] Hepatology team. 4.?? History of polysubstance abuse, [...] on this date of service including both [id number] and suv-mcld-ma-face time excluding any separately reportable services. ?? aml Roberta Alex MD CC: Alejandro Blevins MD documented in this encounter Plan of Treatment Upcoming Encounters Date Type Department Care Team (Late st Contact Info) Description 09/25/2024 11:30 AM LEAD NITRATE PROCESSOR Appointment [facility] [address] [place] [address] Roberta Alex MD [address] [place] [address]68[address] 09/25/2024 11:40 AM LEAD NITRATE PROCESSOR Office [facility] [address] [place] [address] [place] [address] Roberta Alex MD [address] [place] [address] documented as of this encounter Visit Diagnoses Diagnosis Thrombocytopenia (CMS/HCC)- Primary Thrombocytopenia, unspecified documented in this encounter Additional Health Concerns Infection Onset Date Last Indicated Resolved Time MRSA 06/05/2021 06/05/2021 documented as of this encounter Care Teams Director Personal Relationship Specialty Start Date End Date Alejandro Blevins MD PCP - General FAMILY PRACTICE 12/10/19 documented as of this encounter
--- OUTSIDE RECORDS SUMMARY | 2024-07-11 09:57 | XMS_ITS | Encounter Summary ---
Author Organization [facility] Address [address] [place] [address]. [place] [address] [place] [address] Care Team Providers Care Property Inspector Name Role Phone Alejandro Blevins MD Primary Care Provider [phone] Reason for Visit * Reason Comments Dental Problem Pt to the ER with c/ o right bottom molar pain. Pt states the molar broke off and has been hurting since May. Pt is unable to sleep. Pt has not seen the dentist. Encounter Details Date Type Department Care Team (Late st Contact Info) Description 09/26/2021 12:35 AM AIR CONDITIONING EQUIPMENT MECHANIC - 09/26/2021 1:15 AM RUST Emergency [facility] [address] [facility] [place] [id number] Geovanny Rodriguez, DO [address] [place] [address] Dental Problem (Pt to the ER with [...] on file Legal Sex Female 11:30 PM AIR CONDITIONING EQUIPMENT MECHANIC Gender Identity Female 11/10/2021 3:09 PM CDT Sexual Orientation Straight 11/10/2021 3: 09 PM CDT COVID-19 Exposure Response Date Recorded In the last 10 days, have yo u been in contact with someone who was confirmed or suspected to have Coronavirus/COVID-19? No / Unsure 09/26/2021 12:13 AM AIR CONDITIONING EQUIPMENT MECHANIC documented as of this encounter Last Filed Vital Signs Vital Sign Reading Time Taken Comments Blood Pressure 132/78 09/26/2021 12:32 AM AIR CONDITIONING EQUIPMENT MECHANIC Pulse 66 09/26/2021 12:32 AM AIR CONDITIONING EQUIPMENT MECHANIC Temperature 36.1 ??C (97 ??F) 09/26/2021 12:32 AM AIR CONDITIONING EQUIPMENT MECHANIC Respiratory Rate 16 09/26/2021 12:32 AM AIR CONDITIONING EQUIPMENT MECHANIC Oxygen Saturation 100% 09/26/2021 12:32 AM AIR CONDITIONING EQUIPMENT MECHANIC Inhaled Oxygen Concentration - - Weight 68.9 kg (152 lb) 09/26/2021 12:32 AM AIR CONDITIONING EQUIPMENT MECHANIC Height 160 cm (5' 3 ) 09/26/2021 12:32 AM AIR CONDITIONING EQUIPMENT MECHANIC Body Mass Index 26.93 09/26/2021 12:32 AM AIR CONDITIONING EQUIPMENT MECHANIC documented in this encounter Functional Status * RETIRED Are you deaf or do you have serious difficulty hearing Answer Date of Assessment Author Status No 07/30/2020 10:48 PM AIR CONDITIONING EQUIPMENT MECHANIC Acti ve * RETIRED Are you blind or do you have serious difficulty seeing, even when wearing glasses? Answer Date of Assessment Author Status No 07/30/2020 10:46 PM AIR CONDITIONING EQUIPMENT MECHANIC Acti ve * Do you have [...] Geovanny Rodriguez DO - 09/26/2021 1:09 AM AIR CONDITIONING EQUIPMENT MECHANIC Continue ibuprofen per package instructions as needed for pain. Make sure that you keep your appointment with your dentist to prevent recurrence of infection. CONDITIONING EQUIPMENT MECHANIC * Attachments The following attachments cannot be sent through Care Everywhere. * Fractured Tooth Discharge Instructions (Ethiopian) documented in this encounter Medications at Time [...] about 2 weeks. History provided by: Patient light bulb tester used: No Dental Problem Medical History ALLERGIES: [...] Disposition: Discharge Geovanny Rodriguez DO 09/26/21 0112 CONDITIONING EQUIPMENT MECHANIC documented in this encounter Plan of Treatment Upcoming Encounters Date Type Department Care Team (Late st Contact Info) Description 09/25/2024 11:30 AM AIR CONDITIONING EQUIPMENT MECHANIC Appointment [facility] [address] [facility] [place] [address] Roberta Alex MD [address] [place] [address] 09/25/2024 11:40 AM AIR CONDITIONING EQUIPMENT MECHANIC Office Visit [facility] [address] [facility] [place] [address] Roberta Alex MD [address] [place] [address] documented as of this encounter Visit Diagnoses [...] 09/26/21 at 0115 Given 09/26/2021 1:13 AM AIR CONDITIONING EQUIPMENT MECHANIC 750 mg documented in this encounter Active and Recently Administered Medications Times are shown in AIR CONDITIONING EQUIPMENT MECHANIC. Scheduled Medication Order 09/24/2021 09/25/2021 09/26/2021 amoxicillin (AMOXIL) capsule 750 mg (COMPLETED) 750 mg, Oral, Once, 1 dose, On 09/26/21 at 0115 0113 (Given - Provid er: Gladys Aburto RN) documented in this encounter Additional Health Concerns Infection Onset Date Last Indicated Resolved Time MRSA 06/05/2021 06/05/2021 documented as of this encounter Care Teams Property Inspector Relationship Specialty Start Date End Date Alejandro Blevins MD PCP - General FAMILY PRACTICE 12/10/19 documented as of this encounter
--- OUTSIDE RECORDS SUMMARY | 2024-07-11 09:57 | XMS_ITS | Encounter Summary ---
Author Organization [facility] Address [address] [place] [address]. [place], [place] [address] [place] [address] Care Team Providers Care Photographic Equipment Assembler Name Role Phone Alejandro Blevins MD Primary Care Provider [phone] Reason for Referral * Occupational Therapy (Routine) - Closed Specialty Diagnoses / Procedures Referred By Scarlet guzman Referred To Contact Occupational Therapy Diagnoses Tendinitis of right rotator cuff Medial epicondylitis of right elbow Procedures OFFICE/OUTPT VISIT,NEW,LEVL III OFFICE/OUTPT VISIT,NEW,LEVL IV OFFICE/OUTPT VISIT,NEW,LEVL V OFFICE/OUTPT VISIT,EST,LEVL III OFFICE/OUTPT VISIT,EST,LEVL IV OFFICE/OUTPT VISIT,EST,LEVL V Zeeshan Anderson FNP-BC [address] [place] [address] Phone: tel: fax: [facility] [address] [place] [address] Phone: tel: fax: Referral ID Status Reason Start Date Expiration Date V isits Requested Visits Authorized [id number] Closed Specialty Services 10/07/2022 11/07/2023 1 1 * Imaging (Routine) - Closed Specialty Diagnoses / Procedures Referred By Scarlet guzman Referred To Contact RADIOLOGY Diagnoses Tendinitis of right rotator cuff Procedures MRI SHOULDER RT WO CON Zeeshan Anderson FNP-BC [address] [place] [address] Phone: tel: fax: Referral ID Status Reason Start Date Expiration Date Visits Re quested Visits Authorized [id number] Closed 10/07/2022 10/08/2023 1 1 Reason for Visit * Reason Comments New Patient Shoulder Pain DOI 08/25/2022 RIGHT Elbow Pain DOI 09/13/2022 RIGHT Encounter Details Date Type Department Care Team (Late st Contact Info) Description 10/07/2022 8:30 AM CDT Office Visit [address] [place] [address] Zeeshan Anderson FNP-BC [address] [place] [address] New Patient; Shoulder Pain (DOI 08/25/2022 RIGHT [...] file Legal Sex Female 11:30 PM WIND TURBINE CONTROLS ENGINEER Gender Identity Female 11/10/2021 3:09 PM [...] Author Status No 07/30/2020 10:48 PM WIND TURBINE CONTROLS ENGINEER Acti ve * RETIRED Are you blind or do you have serious difficulty seeing, even when wearing glasses? Answer Date of Assessment Author Status No 07/30/2020 10:46 PM WIND TURBINE CONTROLS ENGINEER Acti ve * Do you have [...] this encounter Progress Notes * Zeeshan Anderson, COMMUNICATIONS INTERN-BC - 10/07/2022 8:30 AM CDT Chief Complaint: [...] tripped and fell to the racking at [employer]. She states then on the 09/13/2022 she [...] of motion forward flexion 120 (PROM 160), [id number], external rotation limited secondary to pain, internal [...] Contact Info) Description 09/25/2024 11:30 AM WIND TURBINE CONTROLS ENGINEER Appointment [facility] [address] [place] [address] Roberta Alex MD [address] [place] [address] 09/25/2024 11:40 AM WIND TURBINE CONTROLS ENGINEER Office Visit [facility] [address] [place] [address] Roberta Alex MD [address] [place] [address] Scheduled Referrals Name Type Priority Associated Diagnoses [...] Díaz MD, 10/22/2022 3:49 PM Zeeshan Anderson COMMUNICATIONS INTERN-BC MRI Final Resu lt documented in this [...] documented as of this encounter Care Teams Photographic Equipment Assembler Relationship Specialty Start Date End Date Alejandro Blevins MD PCP - General FAMILY PRACTICE 12/10/19 documented as of this encounter
--- OUTSIDE RECORDS SUMMARY | 2024-07-11 09:57 | XMS_ITS | Encounter Summary ---
Author Organization [facility] Address [address] [place] [address]. [place], [place] [id number] [place] [address] Care Team Providers Care Kennel Manager Dog Track Name Role Phone Alejandro Blevins MD Primary Care Provider [phone] Reason for Visit * Reason Comments Shoulder Pain DOI 08/25/2022 RIGHT Elbow Pain DOI:09/13/2022 RIGHT MRI Results RIGHT shoulder Work Comp Encounter Details Date Type Department Care Team (Latest Contact Info) Description 10/28/2022 3:15 PM CDT Office Visit [facility] [address], [facility] [address] [place] [id number] Anthony Marley MD [address] [place] [address] Shoulder Pain (DOI 08/25/2022 RIGHT ); Elbow [...] on file Legal Sex Female 11:30 PM TEMPORARY DATA ENTRY CLERK Gender Identity Female 11/10/2021 3:09 PM [...] Assessment Author Status No 07/30/2020 10:48 PM TEMPORARY DATA ENTRY CLERK Acti ve * RETIRED Are you blind or do you have serious difficulty seeing, even when wearing glasses? Answer Date of Assessment Author Status No 07/30/2020 10:46 PM TEMPORARY DATA ENTRY CLERK Acti ve * Do you have [...] Not Currently Medications: Current Outpatient Medications: ??? [id number] (EXCEDRIN MIGRAINE) 250-250-65 MG tablet, Take 1 [...] st Contact Info) Description 09/25/2024 11:30 AM TEMPORARY DATA ENTRY CLERK Appointment [facility] [place] [place] [address] Roberta Alex MD [address] [place] [address] 09/25/2024 11:40 AM TEMPORARY DATA ENTRY CLERK Office Visit [facility] [place] [address] Roberta Alex MD [address] [place] [address] documented as of this encounter Visit Diagnoses Diagnosis Tendinitis of right rotator cuff- Primary Disorders of bursae and tendons in shoulder region, unspecified documented in this encounter Additional Health Concerns Infection Onset Date Last Indicated Resolved Time MRSA 06/05/2021 06/05/2021 documented as of this encounter Care Teams Kennel Manager Dog Track Relationship Specialty Start Date End Date Alejandro Blevins MD PCP - General FAMILY PRACTICE 12/10/19 documented as of this encounter
--- OUTSIDE RECORDS SUMMARY | 2024-07-11 09:57 | XMS_ITS | Encounter Summary ---
Author Organization [facility] Address [address] [place] [address]. [place] [address] [place] [address] Care Team Providers Care Garment Sewer Hand Name Role Phone Alejandro Blevins MD Primary Care Provider [phone] Encounter Details Date Type Department Care Team (Late st Contact Info) Description 09/28/2022 Orders Only [facility] [address] [address] Zeeshan Anderson, [facility] [address] [place] [address] [place] [id number] Social History Tobacco Use Types Packs/Day Years Used Date Smoking Tobacco: Every Day Cigarettes Smokeless Tobacco: Never Alcohol Use Standard Drinks/Week Comments Not Currently 0 (1 standard drink = 0.6 oz pur e alcohol) Comments No Sex and Gender Information Value Date Recorded Sex Assigned at Not on file Legal Sex Female 11:30 PM BRANCH RETAIL EXECUTIVE Gender Identity Female 11/10/2021 3:09 PM CDT Sexual Orientation Straight 11/10/2021 3: 09 PM CDT documented as of this encounter Functional Status * RETIRED Are you deaf or do you have serious difficulty hearing Answer Date of Assessment Author Status No 07/30/2020 10:48 PM BRANCH RETAIL EXECUTIVE Acti ve * RETIRED Are you blind or do you have serious difficulty seeing, even when wearing glasses? Answer Date of Assessment Author Status No 07/30/2020 10:46 PM BRANCH RETAIL EXECUTIVE Acti ve * Do you have serious difficulty walking or climbing stairs? Answer Date of Assessment Author Status No 07/30/2020 10:46 PM BRANCH RETAIL EXECUTIVE Nella Le RN Active * Do you have difficulty dressing or bathing? Answer Date of Assessment Author Status No 07/30/2020 10:46 PM BRANCH RETAIL EXECUTIVE Nella Le RN Active * Because of a physical, mental, or emotional condition, do you have difficulty doing errands alone such as visiting a doctor's office or shopping? Answer Date of Assessment Author Status No 07/30/2020 10:46 PM BRANCH RETAIL EXECUTIVE Nella Le RN Active documented as of this encounter Mental Status * Because of a physical, mental, or emotional condition, do you have serious difficulty concentrating, remembering, or making decisions? Answer Entry Date Author Status No 07/30/2020 10:46 PM BRANCH RETAIL EXECUTIVE Nella Le RN Active documented in this encounter Plan of Treatment Upcoming Encounters Date Type Department Care Team (Late st Contact Info) Description 09/25/2024 11:30 AM BRANCH RETAIL EXECUTIVE Appointment [facility] [address] [place] [address] Roberta Alex MD [address] [place] [address] 09/25/2024 11:40 AM BRANCH RETAIL EXECUTIVE Office Visit [facility] [address] [place] [address] Roberta Alex MD [address] [place] [address] documented as of this encounter Results * [...] MD, 10/07/2022 1:01 PM us Zeeshan [place] SOUND TRUCK OPERATOR-BC GENERAL IMAGING Final Resu lt * [...] MD, 10/07/2022 1:00 PM us Zeeshan [place] SOUND TRUCK OPERATOR-BC GENERAL IMAGING Final Resu lt documented [...] documented as of this encounter Care Teams Garment Sewer Hand Relationship Specialty Start Date End Date Alejandro Blevins MD PCP - General FAMILY PRACTICE 12/10/19 documented as of this encounter
--- OUTSIDE RECORDS SUMMARY | 2024-07-11 09:57 | XMS_ITS | Encounter Summary ---
Author Organization [facility] Address [facility] [place] [address] [place] [address] Care Team Providers Care Calender Wind Up Helper Name Role Phone Alejandro Blevins MD Primary Care Provider [phone] Encounter Details Date Type Department Care Team (Late st Contact Info) Description 01/26/2022 Orders Only [address] [place] [address] Roberta Alex MD [address] [place] [address] Social History Tobacco Use Types Packs/Day Years Used Date Smoking Tobacco: Every Day Cigarettes Smokeless Tobacco: Never Alcohol Use Standard Drinks/Week Comments Not Currently 0 (1 standard drink = 0.6 oz pur e alcohol) Comments No Sex and Gender Information Value Date Recorded Sex Assigned at Not on file Legal Sex Female 11:30 PM NURSING CLINICAL DIRECTOR Gender Identity Female 11/10/2021 3:09 PM CDT Sexual Orientation Straight 11/10/2021 3: 09 PM CDT documented as of this encounter Functional Status * RETIRED Are you deaf or do you have serious difficulty hearing Answer Date of Assessment Author Status No 07/30/2020 10:48 PM NURSING CLINICAL DIRECTOR Acti ve * RETIRED Are you blind or do you have serious difficulty seeing, even when wearing glasses? Answer Date of Assessment Author Status No 07/30/2020 10:46 PM NURSING CLINICAL DIRECTOR Acti ve * Do you have serious difficulty walking or climbing stairs? Answer Date of Assessment Author Status No 07/30/2020 10:46 PM NURSING CLINICAL DIRECTOR Bringuet, Nella C, RN Active * [...] st Contact Info) Description 09/25/2024 11:30 AM NURSING CLINICAL DIRECTOR Appointment [facility] [address] [place] [address] Roberta Alex MD [address] [place] [address] 09/25/2024 11:40 AM NURSING CLINICAL DIRECTOR Office Visit [facility] [address] [place] [address] Roberta Alex MD [address] [place] [address] documented as of this encounter Results * Blood Bank - Specimen Hold (01/26/2022 12:00 PM CDT) SAMPLE LAB COLLECTED SPECIMEN 01/26/2022 11:55 AM CDT [facility] 01/26/2022 12:0 0 PM CDT Roberta Alex MD BLOOD BANK TEST ORDERABLES Fin al Result [facility] [address] [place] [address], * (ABNORMAL) CBC W/DIFF AUTOMATED (01/26/2022 12:00 PM CDT) WBC 8.4 4.0 - 10.8 x10'3/uL 01/26/2022 12:20 PM CDT [facility] RBC 4.32 4.10 - 5.40 x10'6/uL 01/26/2022 12:20 PM CDT [facility] HGB 12.7 12.0 - 16.0 G/DL 01/26/2022 12:20 PM CDT [facility] HCT 40.9 36.0 - 47.0 % 01/26/2022 12:20 PM CDT [facility] MCV 94.7 78.0 - 100.0 FL 01/26/2022 12:20 PM CDT [facility] MCH 29.4 27.0 - 31.0 PG 01/26/2022 12:20 PM CDT [facility] MCHC 31.1(L) 33.0 - 36.0 G/DL 01/26/2022 12:20 PM CDT [facility] RDW 13.2 11.5 - 14.5 % 01/26/2022 12:20 PM CDT [facility] PLT 85(L) 150 - 350 x10'3/uL 01/26/2022 12:20 PM CDT [facility] MPV 14.4(H) 7.4 - 10.4 FL 01/26/2022 12:20 PM CDT [facility] DIFFERENTIAL COMMENT NORMAL REFERENCE RANGE NOT ESTABLISHED FOR THE PROPORTIONAL LEUKOCYTE DIFFERENTIAL. 01/26/2022 12:20 PM CDT [facility] SEG NEUTROPHILS 71.5 % 12:45 PM CDT [facility] LYMPHOCYTES 17.5 % 01/26/2022 12:45 PM CDT [facility] MONOCYTES 5.8 % 01/26/2022 12:45 PM CDT [facility] EOSINOPHILS 4.1 % 01/26/2022 12:45 PM CDT [facility] BASOPHILS 0.6 % 01/26/2022 12:45 PM CDT [facility] IMMATURE GRANS % 0.5 % 01/27/20 12:45 PM CDT [facility] NRBC 0.0 % 01/26/2022 12:45 PM CDT [facility] ABS. NEUTROPHILS 6.01 1.60 - 8.30 x10'3/uL 01/26/2022 12:45 PM CDT [facility] ABS. LYMPHOCYTES 1.47 0.80 - 4.70 x10'3/uL 01/26/2022 12:45 PM CDT [facility] ABS. MONOCYTES 0.49 0.00 - 1.50 x10'3/uL 01/26/2022 12:45 PM CDT [facility] ABS. EOSINOPHILS 0.34 0.00 - 0.40 x10'3/uL 01/26/2022 12:45 PM CDT [facility] ABS. BASOPHILS 0.05 0.00 - 0.20 x10'3/uL 01/26/2022 12:45 PM CDT [facility] ABS. IMMATURE GRANULOCYTES 0.04(H) 0.00 - 0.03 x10'3/uL 01/26/2022 12:45 PM CDT [facility] ABS. NUCLEATED RBC'S 0.00 0.00 x10'3/uL 01/26/2022 12:45 PM CDT [facility] PLT MORPH. DECREASED 01/26/2022 12:45 PM CDT [facility] RBC MORPHOLOGY NORMAL 01/26/2022 12:45 PM CDT [facility] 01/26/2022 12:0 0 PM CDT us Roberta Alex MD LABORATORY Final Result [facility] [address] [place] [address], documented in this encounter Visit Diagnoses Diagnosis Thrombocytopenia (CMS/HCC)- Primary Thrombocytopenia, unspecified documented in this encounter Additional Health Concerns Infection Onset Date Last Indicated Resolved Time MRSA 06/05/2021 06/05/2021 documented as of this encounter Care Teams Calender Wind Up Helper Relationship Specialty Start Date End Date Alejandro Blevins MD PCP - General FAMILY PRACTICE 12/10/19 documented as of this encounter
--- OUTSIDE RECORDS SUMMARY | 2024-07-11 09:57 | XMS_ITS | Encounter Summary ---
Author Organization [facility] Address [address] [place] [address]. [place], [place] [address] [place] [address] Care Team Providers Care Software Tools Build Engineer Name Role Phone Alejandro Blevins MD Primary Care Provider [phone] Reason for Visit * Reason Onset Date Comments Disability Form 10/07/2022 Encounter Details Date Type Department Care Team (Late st Contact Info) Description 10/07/2022 Telephone [facility] [place] [phone] Michaela Fitzgerald RNFA Disability Form Social History Tobacco Use Types Packs/Day Years Used Date Smoking Tobacco: Every Day Cigarettes Smokeless Tobacco: Never Alcohol Use Standard Drinks/Week Comments Not Currently 0 (1 standard drink = 0.6 oz pur e alcohol) Comments No Sex and Gender Information Value Date Recorded Sex Assigned at Not on file Legal Sex Female 11:30 PM POLICE GUARD Gender Identity Female 11/10/2021 3:09 PM CDT [...] Assessment Author Status No 07/30/2020 10:48 PM POLICE GUARD Acti ve * RETIRED Are you blind or do you have serious difficulty seeing, even when wearing glasses? Answer Date of Assessment Author Status No 07/30/2020 10:46 PM POLICE GUARD Acti ve * Do you have serious [...] by patient at this time. Patient will garbage pick up worker tomorrow. documented in this encounter Plan of Treatment Upcoming Encounters Date Type Department Care Team (Late st Contact Info) Description 09/25/2024 11:30 AM POLICE GUARD Appointment [facility] [address] [place] [address] Roberta Alex MD [address] [place] [address] 09/25/2024 11:40 AM POLICE GUARD Office Visit [facility] [address] [address] Roberta Alex MD [address] [place] [address] documented as of this encounter Visit Diagnoses Not on filedocumented in this encounter Additional Health Concerns Infection Onset Date Last Indicated Resolved Time MRSA 06/05/2021 06/05/2021 documented as of this encounter Care Teams Software Tools Build Engineer Relationship Specialty Start Date End Date Alejandro Blevins MD PCP - General FAMILY PRACTICE 12/10/19 documented as of this encounter
--- OUTSIDE RECORDS SUMMARY | 2024-07-11 09:57 | XMS_ITS | Encounter Summary ---
Author Organization [facility] Address [address] [place] [address]. [place], [place] [address] [place] [address] Care Team Providers Care Mri Special Procedures Technologist Name Role Phone Alejandro Blevins MD Primary Care Provider [phone] Encounter Details Date Type Department Care Team [...] on file Legal Sex Female 11:30 PM PARAEDUCATOR Gender Identity Female 11/10/2021 3:09 PM CDT [...] Assessment Author Status No 07/30/2020 10:48 PM PARAEDUCATOR Acti ve * RETIRED Are you blind or do you have serious difficulty seeing, even when wearing glasses? Answer Date of Assessment Author Status No 07/30/2020 10:46 PM PARAEDUCATOR Acti ve * Do you have serious difficulty walking or climbing stairs? Answer Date of Assessment Author Status No 07/30/2020 10:46 PM PARAEDUCATOR Nella Le RN Active * Do you have difficulty dressing or bathing? Answer Date of Assessment Author Status No 07/30/2020 10:46 PM PARAEDUCATOR Nella Le RN Active * Because of a physical, mental, or emotional condition, do you have difficulty doing errands alone such as visiting a doctor's office or shopping? Answer Date of Assessment Author Status No 07/30/2020 10:46 PM PARAEDUCATOR Nella Le RN Active documented as of this encounter Mental Status * Because of a physical, mental, or emotional condition, do you have serious difficulty concentrating, remembering, or making decisions? Answer Entry Date Author Status No 07/30/2020 10:46 PM PARAEDUCATOR Nella Le RN Active documented in this encounter Plan of Treatment Upcoming Encounters Date Type Department Care Team (Late st Contact Info) Description 09/25/2024 11:30 AM PARAEDUCATOR Appointment [facility] [address] [facility] [place] [address] Roberta Alex MD [address] [place] [address] 09/25/2024 11:40 AM PARAEDUCATOR Office Visit [facility] [address] [place] [address] Roberta Alex MD [address] [place] [address] documented as of this encounter Visit Diagnoses Not on filedocumented in this encounter Additional Health Concerns Infection Onset Date Last Indicated Resolved Time MRSA 06/05/2021 06/05/2021 documented as of this encounter Care Teams Mri Special Procedures Technologist Relationship Specialty Start Date End Date Alejandro Blevins MD PCP - General FAMILY PRACTICE 12/10/19 documented as of this encounter
--- OUTSIDE RECORDS SUMMARY | 2024-07-11 09:58 | XMS_ITS | Encounter Summary ---
Author Organization [facility] Address [address] [place] [address]. [place], [place] [address] [place] [address] Care Team Providers Care Datapower Developer Name Role Phone Alejandro Blevins MD Primary Care Provider [phone] Encounter Details Date Type Department Care Team (Latest Contact Info) Description 05/29/2021 Travel Social History Tobacco Use Types Packs/Day Years Used Date Smoking Tobacco: Former Smokeless Tobacco: Current Comments No Sex and Gender Information Value Date Recorded Sex Assigned at Not on file Legal Sex Female 11:30 PM FINANCE TEACHER Gender Identity Female 11/10/2021 3:09 PM [...] Assessment Author Status No 07/30/2020 10:48 PM FINANCE TEACHER Acti ve * RETIRED Are you blind or do you have serious difficulty seeing, even when wearing glasses? Answer Date of Assessment Author Status No 07/30/2020 10:46 PM FINANCE TEACHER Acti ve * Do you have serious difficulty walking or climbing stairs? Answer Date of Assessment Author Status No 07/30/2020 10:46 PM FINANCE TEACHER Nella Le RN Active * Do you have difficulty dressing or bathing? Answer Date of Assessment Author Status No 07/30/2020 10:46 PM FINANCE TEACHER Nella Le RN Active * Because of [...] st Contact Info) Description 09/25/2024 11:30 AM FINANCE TEACHER Appointment [place] [id number] [facility] [place] [address] Roberta Alex MD [address] [place] [address] 09/25/2024 11:40 AM FINANCE TEACHER Office Visit [facility] [place] [address] Roberta Alex MD [address] [place] [phone] documented as of this encounter Visit Diagnoses Not on filedocumented in this encounter Care Teams Datapower Developer Relationship Specialty Start Date End Date Alejandro Blevins MD PCP - General FAMILY PRACTICE 12/10/19 documented as of this encounter
--- OUTSIDE RECORDS SUMMARY | 2024-07-11 09:58 | XMS_ITS | Encounter Summary ---
Author Organization [facility] Address [address] [place] [address]. [place], [place] [address] [place] [address] Care Team Providers Care Dozer Operator Name Role Phone Alejandro Blevins MD Primary Care Provider [phone] Reason for Visit * Reason Comments Abdominal Pain Encounter Details Date Type Department Care Team (Late st Contact Info) Description 06/03/2021 2:13 PM AUTOMOTIVE BRAKE ADJUSTER - 06/03/2021 3:16 PM AUTOMOTIVE BRAKE ADJUSTER Emergency [place] [address] [facility] [place] [address] Dominick King MD [address] [place] [address] Abdominal Pain Discharge Disposition: Home or Self Care (Routine Discharge) Social History Tobacco Use Types Packs/Day Years Used Date Smoking Tobacco: Former Smokeless Tobacco: Current Comments No Sex and Gender Information Value Date Recorded Sex Assigned at Not on file Legal Sex Female 11:30 PM AUTOMOTIVE BRAKE ADJUSTER Gender Identity Female 11/10/2021 3:09 PM CDT Sexual Orientation Straight 11/10/2021 3: 09 PM CDT COVID-19 Exposure Response Date Recorded In the last month, have you been in contact with someone who was confirmed or suspected to have Coronavirus / COVID-19? No / Unsure 06/03/2021 2:13 PM AUTOMOTIVE BRAKE ADJUSTER documented as of this encounter Last Filed Vital Signs Vital Sign Reading Time Taken Comments Blood Pressure 113/78 06/03/2021 2:30 PM AUTOMOTIVE BRAKE ADJUSTER Pulse 80 06/03/2021 2:17 PM AUTOMOTIVE BRAKE ADJUSTER Temperature 37.2 ??C (99 ??F) 06/03/2021 2:17 PM AUTOMOTIVE BRAKE ADJUSTER Respiratory Rate 18 06/03/2021 2:17 PM AUTOMOTIVE BRAKE ADJUSTER Oxygen Saturation 97% 06/03/2021 2:17 PM AUTOMOTIVE BRAKE ADJUSTER Inhaled Oxygen Concentration - - Weight 67.1 kg (148 lb) 06/03/2021 2:17 PM AUTOMOTIVE BRAKE ADJUSTER Height 160 cm (5' 3 ) 06/03/2021 2:17 PM AUTOMOTIVE BRAKE ADJUSTER Body Mass Index 26.22 06/03/2021 2:17 PM AUTOMOTIVE BRAKE ADJUSTER documented in this encounter Functional Status * RETIRED Are you deaf or do you have serious difficulty hearing Answer Date of Assessment Author Status No 07/30/2020 10:48 PM AUTOMOTIVE BRAKE ADJUSTER Acti ve * RETIRED Are you blind or do you have serious difficulty seeing, even when wearing glasses? Answer Date of Assessment Author Status No 07/30/2020 10:46 PM AUTOMOTIVE BRAKE ADJUSTER Acti ve * Do you have serious difficulty walking or climbing stairs? Answer Date of Assessment Author Status No 07/30/2020 10:46 PM AUTOMOTIVE BRAKE ADJUSTER Nella Le RN Active * Do you have difficulty dressing or bathing? Answer Date of Assessment Author Status No 07/30/2020 10:46 PM AUTOMOTIVE BRAKE ADJUSTER Nella Le RN Active * Because of [...] sent through Care Everywhere. * Kidney Infection (Chilean) documented in this encounter Medications at Time [...] left side and left back at times. MOTIVE BRAKE ADJUSTER * Dominick King MD - 06/03/2021 2:12 [...] Range COLOR (U) YELLOW TRANSPARENCY CLEAR Specific [place] (U) 1.025 1.000 - 1.025 U PH [...] Value Ref Range PREG TEST NEGATIVE Specific [place] (U) 1.025 ED MEDICATIONS Medications - No [...] Pyelonephritis PYELONEPHRITIS Alejandro Blevins MD [address] [facility] [address] In 2 days If symptoms worsen [...] Tue06/03/2021, Eprescribe Dominick King MD 06/03/21 1521 MOTIVE BRAKE ADJUSTER documented in this encounter Plan of Treatment Upcoming Encounters Date Type Department Care Team (Late st Contact Info) Description 09/25/2024 11:30 AM AUTOMOTIVE BRAKE ADJUSTER Appointment [facility] [place] [address] Roberta Alex MD [address] [place] [address] 09/25/2024 11:40 AM AUTOMOTIVE BRAKE ADJUSTER Office Visit [facility] [place] [address] Roberta Alex MD [address] [place] [address] documented as of this encounter Procedures Procedure Name Priority Date/Time Associated Diagnosis Comments URINALYSIS WI REFLEX TO CULTURE STAT 06/03/2021 2:40 PM AUTOMOTIVE BRAKE ADJUSTER TEST URINE STAT 06/03/2021 2:40 PM AUTOMOTIVE BRAKE ADJUSTER URINE BACTERIA CULTURE Routine 06/03/2021 2:40 PM AUTOMOTIVE BRAKE ADJUSTER documented in this encounter Results * CULTURE URINE (06/03/2021 2:40 PM AUTOMOTIVE BRAKE ADJUSTER) SPEC DESCRIPTION URINE CLEAN CATCH 06/03/2021 3:00 PM AUTOMOTIVE BRAKE ADJUSTER [facility] SPECIAL REQUESTS NO SPECIAL REQUEST 06/03/2021 3:00 PM AUTOMOTIVE BRAKE ADJUSTER [facility] CULTURE RESULT >100,000 CFU/mL ESCHERICHIA COLI 06/05/2021 3:18 PM AUTOMOTIVE BRAKE ADJUSTER [facility] CULTURE RESULT >10,000 TO 25,000 CFU/mL METHICILLIN RESISTANT STAPHYLOCOCCUS AUREUS 06/05/2021 3:18 PM AUTOMOTIVE BRAKE ADJUSTER [facility] URINE SPECIMEN OBTAINED BY CLEAN CATCH PROCEDURE / Unknown 06/03/2021 2:40 PM AUTOMOTIVE BRAKE ADJUSTER 06/03/2021 2:59 PM AUTOMOTIVE BRAKE ADJUSTER Narrative Organism Antibiotic Method Susceptibility Escherichia coli [...] MICROBIOLOGY - GENERAL ORDERA BLES Final Result [facility] [address] [place] [address], [place] [phone] [id number] [facility] [address] [place] [address], [place] [phone] * TEST URINE (06/03/2021 2:40 PM AUTOMOTIVE BRAKE ADJUSTER) PREG TEST NEGATIVE 06/03/2021 2:53 PM AUTOMOTIVE BRAKE ADJUSTER [facility] SPECIFIC GRAVITY (U) 1.025 06/03/2021 2:53 PM AUTOMOTIVE BRAKE ADJUSTER [facility] URINE SPECIMEN OBTAINED BY CLEAN CATCH PROCEDURE / Unknown 06/03/2021 2:40 PM AUTOMOTIVE BRAKE ADJUSTER Dominick King MD URINE ORDERABLES Final Result Performing Organization Address City/[facility]/ZIP Co de Phone Number [facility] [address] [place] [address], [place] [phone] * (ABNORMAL) URINALYSIS WI REFLEX TO CULTURE (06/03/2021 2:40 PM AUTOMOTIVE BRAKE ADJUSTER) COLOR (U) YELLOW 06/03/2021 2:58 PM AUTOMOTIVE BRAKE ADJUSTER [facility] TRANSPARENCY CLEAR 06/03/2021 2:58 PM AUTOMOTIVE BRAKE ADJUSTER [facility] SPECIFIC GRAVITY (U) 1.025 1.000 - 1.025 06/03/2021 2:58 PM AUTOMOTIVE BRAKE ADJUSTER [facility] U PH 7.0 5.0 - 8.0 06/03/2021 2:58 PM AUTOMOTIVE BRAKE ADJUSTER [facility] LEUKOCYTES (U) NEGATIVE NEGATIVE 06/03/2021 2:58 PM AUTOMOTIVE BRAKE ADJUSTER [facility] NITRITES POSITIVE(A) NEGATIVE 06/03/2021 2:58 PM AUTOMOTIVE BRAKE ADJUSTER [facility] PROTEIN (U) NEGATIVE NEGATIVE 06/03/2021 2:58 PM AUTOMOTIVE BRAKE ADJUSTER [facility] URINE GLUCOSE NEGATIVE NEGATIVE 06/03/2021 2:58 PM AUTOMOTIVE BRAKE ADJUSTER [facility] KETONES MG/DL (U) NEGATIVE NEGATIVE 06/03/2021 2:58 PM AUTOMOTIVE BRAKE ADJUSTER [facility] UROBILINOGEN 1.0(H) <1.0 EU/DL 06/03/2021 2:58 PM AUTOMOTIVE BRAKE ADJUSTER [facility] BILIRUBIN (U) NEGATIVE NEGATIVE 06/03/2021 2:58 PM AUTOMOTIVE BRAKE ADJUSTER [facility] BLOOD (U) NEGATIVE NEGATIVE 06/03/2021 2:58 PM AUTOMOTIVE BRAKE ADJUSTER [facility] WBC/HPF 0-5 0 - 5 /HPF 06/03/2021 2:58 PM AUTOMOTIVE BRAKE ADJUSTER [facility] EPI/HPF FEW /LPF 06/03/2021 2:58 PM AUTOMOTIVE BRAKE ADJUSTER [facility] BACTERIA (U) 2+ /HPF 06/03/2021 2:58 PM AUTOMOTIVE BRAKE ADJUSTER [facility] MUCUS PRESENT 06/03/2021 2:58 PM AUTOMOTIVE BRAKE ADJUSTER [facility] CULTURE & SENSITIVITY INDICATED? SPECIMEN SETUP FOR CULTURE 06/03/2021 2:59 PM AUTOMOTIVE BRAKE ADJUSTER [facility] URINE SPECIMEN OBTAINED BY CLEAN CATCH PROCEDURE / Unknown 06/03/2021 2:40 PM AUTOMOTIVE BRAKE ADJUSTER Dominick King MD URINE ORDERABLES Final Result [facility] [address] [place] [address], documented in this encounter Visit Diagnoses Diagnosis Pyelonephritis- Primary Pyelonephritis, unspecified documented in this encounter Care Teams Dozer Operator Relationship Specialty Start Date End Date Alejandro Blevins MD PCP - General FAMILY PRACTICE 12/10/19 documented as of this encounter
--- OUTSIDE RECORDS SUMMARY | 2024-07-11 09:58 | XMS_ITS | Encounter Summary ---
Author Organization [facility] Address [facility] [facility] [place] [address] [place] [address] Care Team Providers Care Fur Feeder Name Role Phone Alejandro Blevins MD Primary Care Provider [phone] Encounter Details Date Type Department Care Team (Latest Contact Info) Description 06/05/2021 2:04 PM PARKING ENFORCEMENT MANAGER - 06/05/2021 11:59 PM PARKING ENFORCEMENT MANAGER Hospital Encounter [address] [place] [address] Roberta Alex MD [address] [place] [address] Discharge Disposition: Home or Self Care (Routine Discharge) Social History Tobacco Use Types Packs/Day Years Used Date Smoking Tobacco: Former Smokeless Tobacco: Current Comments No Sex and Gender Information Value Date Recorded Sex Assigned at Not on file Legal Sex Female 11:30 PM PARKING ENFORCEMENT MANAGER Gender Identity Female 11/10/2021 3:09 PM CDT Sexual Orientation Straight 11/10/2021 3: 09 PM CDT COVID-19 Exposure Response Date Recorded In the last month, have you been in contact with someone who was confirmed or suspected to have Coronavirus / COVID-19? No / Unsure 06/05/2021 2:01 PM PARKING ENFORCEMENT MANAGER documented as of this encounter Functional Status * RETIRED Are you deaf or do you have serious difficulty hearing Answer Date of Assessment Author Status No 07/30/2020 10:48 PM PARKING ENFORCEMENT MANAGER Acti ve * RETIRED Are you blind or do you have serious difficulty seeing, even when wearing glasses? Answer Date of Assessment Author Status No 07/30/2020 10:46 PM PARKING ENFORCEMENT MANAGER Acti ve * Do you have [...] st Contact Info) Description 09/25/2024 11:30 AM PARKING ENFORCEMENT MANAGER Appointment [facility] [address] [place] [address] Roberta Alex MD [address] [place] [address] 09/25/2024 11:40 AM PARKING ENFORCEMENT MANAGER Office Visit [facility] [address] [place] [address] Roberta Alex MD [address] [place] [address] documented as of this encounter Procedures Procedure Name Priority Date/Time Associated Diagnosis Comments BLOOD BANK - SPECIMEN HOLD Routine 06/05/2021 2:22 PM PARKING ENFORCEMENT MANAGER Chronic ITP (idiopathic thrombocytopenia) (CMS/HCC HHS/HCC) CBC W/DIFF AUTOMATED Routine 06/05/2021 2:22 PM PARKING ENFORCEMENT MANAGER Thrombocytopenia documented in this encounter Results * Blood Bank - Specimen Hold (06/05/2021 2:22 PM PARKING ENFORCEMENT MANAGER) Pathologist [facility] SAMPLE LAB COLLECTED SPECIMEN 06/05/2021 2:04 PM PARKING ENFORCEMENT MANAGER [facility] Blood specimen (specimen) 06/05/2021 2:22 PM PARKING ENFORCEMENT MANAGER us Roberta Alex MD BLOOD BANK TEST ORDERABLES Fin al Result [facility] [address] [place] [address], * (ABNORMAL) CBC W/DIFF AUTOMATED (06/05/2021 2:22 PM PARKING ENFORCEMENT MANAGER) [facility] WBC 11.2(H) 4.0 - 10.8 x10'3/uL 06/05/2021 2:44 PM PARKING ENFORCEMENT MANAGER [facility] RBC 4.32 4.10 - 5.40 x10'6/uL 06/05/2021 2:44 PM PARKING ENFORCEMENT MANAGER [facility] HGB 12.4 12.0 - 16.0 G/DL 06/05/2021 2:44 PM PARKING ENFORCEMENT MANAGER [facility] HCT 39.3 36.0 - 47.0 % 06/05/2021 2:44 PM PARKING ENFORCEMENT MANAGER [facility] MCV 91.0 78.0 - 100.0 FL 06/05/2021 2:44 PM PARKING ENFORCEMENT MANAGER [facility] MCH 28.7 27.0 - 31.0 PG 06/05/2021 2:44 PM PARKING ENFORCEMENT MANAGER [facility] MCHC 31.6(L) 33.0 - 36.0 G/DL 06/05/2021 2:44 PM PARKING ENFORCEMENT MANAGER [facility] RDW 13.8 11.5 - 14.5 % 06/05/2021 2:44 PM PARKING ENFORCEMENT MANAGER [facility] PLT 147(L) 150 - 350 x10'3/uL 06/05/2021 2:44 PM PARKING ENFORCEMENT MANAGER [facility] MPV 13.8(H) 7.4 - 10.4 FL 06/05/2021 2:44 PM PARKING ENFORCEMENT MANAGER [facility] DIFFERENTIAL COMMENT NORMAL REFERENCE RANGE NOT ESTABLISHED FOR THE PROPORTIONAL LEUKOCYTE DIFFERENTIAL. 06/05/2021 2:44 PM PARKING ENFORCEMENT MANAGER [facility] SEG NEUTROPHILS 75.4 % 2:44 PM PARKING ENFORCEMENT MANAGER [facility] LYMPHOCYTES 12.9 % 06/05/2021 2:44 PM [facility] MONOCYTES 6.2 % 06/05/2021 2:44 PM PARKING ENFORCEMENT MANAGER [facility] EOSINOPHILS 4.7 % 06/05/2021 2:44 PM PARKING ENFORCEMENT MANAGER [facility] BASOPHILS 0.4 % 06/05/2021 2:44 PM PARKING ENFORCEMENT MANAGER [facility] IMMATURE GRANS % 0.4 % 06/05/20 2:44 PM PARKING ENFORCEMENT MANAGER [facility] NRBC 0.0 % 06/05/2021 2:44 PM [facility] ABS. NEUTROPHILS 8.41(H) 1.60 - 8.30 x10'3/uL 06/05/2021 2:44 PM PARKING ENFORCEMENT MANAGER [facility] ABS. LYMPHOCYTES 1.44 0.80 - 4.70 x10'3/uL 06/05/2021 2:44 PM PARKING ENFORCEMENT MANAGER [facility] ABS. MONOCYTES 0.69 0.00 - 1.50 x10'3/uL 06/05/2021 2:44 PM PARKING ENFORCEMENT MANAGER [facility] ABS. EOSINOPHILS 0.52(H) 0.00 - 0.40 x10'3/uL 06/05/2021 2:44 PM PARKING ENFORCEMENT MANAGER [facility] ABS. BASOPHILS 0.05 0.00 - 0.20 x10'3/uL 06/05/2021 2:44 PM PARKING ENFORCEMENT MANAGER [facility] ABS. IMMATURE GRANULOCYTES 0.05(H) 0.00 - 0.03 x10'3/uL 06/05/2021 2:44 PM PARKING ENFORCEMENT MANAGER [facility] ABS. 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
--- OUTSIDE RECORDS SUMMARY | 2024-07-11 09:58 | XMS_ITS | Encounter Summary ---
Author Organization [facility] Address [address] [place] [address]. [place], [place] [address] [place] [address] Care Team Providers Care Rubber Press Operator Name Role Phone Alejandro Blevins MD Primary Care Provider [phone] Encounter Details Date Type Department Care Team (Latest Contact Info) Description 06/03/2021 Travel Social History Tobacco Use Types Packs/Day Years Used Date Smoking Tobacco: Former Smokeless Tobacco: Current Comments No Sex and Gender Information Value Date Recorded Sex Assigned at Not on file Legal Sex Female 11:30 PM SOD FARMER Gender Identity Female 11/10/2021 3:09 PM CDT Sexual Orientation Straight 11/10/2021 3: 09 PM CDT COVID-19 Exposure Response Date Recorded In the last month, have you been in contact with someone who was confirmed or suspected to have Coronavirus / COVID-19? No / Unsure 06/03/2021 2:13 PM SOD FARMER documented as of this encounter Functional Status * RETIRED Are you deaf or do you have serious difficulty hearing Answer Date of Assessment Author Status No 07/30/2020 10:48 PM SOD FARMER Acti ve * RETIRED Are you blind or do you have serious difficulty seeing, even when wearing glasses? Answer Date of Assessment Author Status No 07/30/2020 10:46 PM SOD FARMER Acti ve * Do you have serious difficulty walking or climbing stairs? Answer Date of Assessment Author Status No 07/30/2020 10:46 PM SOD FARMER Nella Le RN Active * Do you have difficulty dressing or bathing? Answer Date of Assessment Author Status No 07/30/2020 10:46 PM SOD FARMER Nella Le RN Active * Because of [...] st Contact Info) Description 09/25/2024 11:30 AM SOD FARMER Appointment [place] [id number] [facility] [place] [address] Roberta Alex MD [address] [place] [address] 09/25/2024 11:40 AM SOD FARMER Office Visit [facility] [place] [address] Roberta Alex MD [address] [place] [address] documented as of this encounter Visit Diagnoses Not on filedocumented in this encounter Care Teams Rubber Press Operator Relationship Specialty Start Date End Date Alejandro Blevins MD PCP - General FAMILY PRACTICE 12/10/19 documented as of this encounter
--- OUTSIDE RECORDS SUMMARY | 2024-07-11 09:58 | XMS_ITS | Encounter Summary ---
Author Organization [facility] Address [address] [place] [address]. [place] [address] [place] [address] Care Team Providers Care Automobile Seat Cover Installer Name Role Phone Alejandro Blevins MD Primary Care Provider [phone] Reason for Visit * Reason Comments Injection * Treatment/Therapy Plan Authorization (Routine) - Closed Specialty Diagnoses / Procedures Referred By Contac t Referred To Contact Diagnoses Chronic ITP (idiopathic thrombocytopenia) ([facility]) Roberta Alex MD [address] [place] [address] Phone: tel: fax: [facility] [place] [address] Phone: tel: Referral ID Status Reason Start Date Expiration Date Visits Re quested Visits Authorized [id number] Closed 07/31/2020 1 9 Encounter Details Date Type Department Care Team (Latest Contact Info) Description 05/29/2021 10:54 AM CDT - 05/29/2021 11:59 PM T Hospital Encounter [facility] [address] [place] [address] Roberta Alex MD [address] [place], [place] [id number] Injection Discharge Disposition: Home or Self Care (Routine Discharge) Social History Tobacco Use Types Packs/Day Years Used Date Smoking Tobacco: Former Smokeless Tobacco: Current Comments No Sex and Gender Information Value Date Recorded Sex Assigned at Not on file Legal Sex Female 11:30 PM PACKAGE YARNS DRYING MACHINE OPERATOR Gender Identity Female 11/10/2021 3:09 [...] Assessment Author Status No 07/30/2020 10:48 PM PACKAGE YARNS DRYING MACHINE OPERATOR Acti ve * RETIRED Are you blind or do you have serious difficulty seeing, even when wearing glasses? Answer Date of Assessment Author Status No 07/30/2020 10:46 PM PACKAGE YARNS DRYING MACHINE OPERATOR Acti ve * Do you [...] Date Author Status No 07/30/2020 10:46 PM PACKAGE YARNS DRYING MACHINE OPERATOR Nella Le RN Active documented in this encounter Progress Notes * Chen Gonzalez - 05/29/2021 11:00 AM CDTEncounter addended by: Chen Gonzalez on: 06/01/2021 4:51 AM Actions taken: Charge Capture section accepted AGE YARNS DRYING MACHINE OPERATOR * Lisette Talbert RN - 05/29/2021 11:00 [...] Type Department Care Team (Late st Contact [facility]) Description 09/25/2024 11:30 AM PACKAGE YARNS DRYING MACHINE OPERATOR Appointment [facility] [address] [facility] [place] [address] Roberta Alex MD [address] [place] [address] 09/25/2024 11:40 AM PACKAGE YARNS DRYING MACHINE OPERATOR Office Visit [facility] [place] [address] Roberta Alex MD [address] [place] [address] documented as of this encounter Visit Diagnoses Diagnosis Chronic ITP (idiopathic thrombocytopenia) ([facility]/HCC [facility]/HCC)- Primary Immune thrombocytopenic purpura documented in this [...] if platelets are >50Indications:Chronic ITP (idiopathic thrombocytopenia) ([facility]) Given 05/29/2021 11:20 AM CDT 210 mcg Left Arm documented in this encounter Care Teams Automobile Seat Cover Installer Relationship Specialty Start Date End Date Alejandro Blevins MD PCP - General FAMILY PRACTICE 12/10/19 documented as of this encounter
--- OUTSIDE RECORDS SUMMARY | 2024-07-11 09:58 | XMS_ITS | Encounter Summary ---
Author Organization [facility] Address [address] [place] [address]. [place] [address] [place] [address] Care Team Providers Care Body Man Name Role Phone Alejandro Blevins MD Primary Care Provider [phone] Encounter Details Date Type Department Care Team (Latest Contact Info) Description 05/29/2021 10:05 AM CDT - 05/29/2021 10:53 AM CDT Hospital Encounter [address] [place] [address] Roberta Alex MD [address] [place] [address] Discharge Disposition: Home or Self Care (Routine Discharge) Social History Tobacco Use Types Packs/Day Years Used Date Smoking Tobacco: Former Smokeless Tobacco: Current Comments No Sex and Gender Information Value Date Recorded Sex Assigned at Not on file Legal Sex Female 11:30 PM SENIOR STRATEGY MANAGER Gender Identity Female 11/10/2021 3:09 PM [...] Author Status No 07/30/2020 10:48 PM SENIOR STRATEGY MANAGER Acti ve * RETIRED Are you blind or do you have serious difficulty seeing, even when wearing glasses? Answer Date of Assessment Author Status No 07/30/2020 10:46 PM SENIOR STRATEGY MANAGER Acti ve * Do you have [...] Contact Info) Description 09/25/2024 11:30 AM SENIOR STRATEGY MANAGER Appointment [facility] [address] [place] [address] Roberta Alex MD [address] [place] [address] 09/25/2024 11:40 AM SENIOR STRATEGY MANAGER Office Visit [facility] [address] [place] [address] Roberta Alex MD [address] [place] [address] documented as of this encounter Procedures Procedure Name Priority Date/Time Associated Diagnosis Comments BLOOD BANK - SPECIMEN HOLD Routine 05/29/2021 10:20 AM CDT Chronic ITP (idiopathic thrombocytopenia) ([facility]/HCC [facility]/HCC) CBC W/DIFF AUTOMATED Routine 05/29/2021 10:20 AM CDT Thrombocytopenia documented in this encounter Results * Blood Bank - Specimen Hold (05/29/2021 10:20 AM CDT) SAMPLE LAB COLLECTED SPECIMEN 05/29/2021 10:05 AM CDT [facility] Blood specimen (specimen) 05/29/2021 10:20 AM CDT us Roberta Alex MD BLOOD BANK TEST ORDERABLES Fin al Result [facility] [address] [place] [address], * (ABNORMAL) CBC W/DIFF AUTOMATED (05/29/2021 10:20 AM CDT) [facility] WBC 10.3 4.0 - 10.8 x10'3/uL 05/29/2021 10:51 AM CDT [facility] RBC 4.89 4.10 - 5.40 x10'6/uL 05/29/2021 10:51 AM CDT [facility] HGB 13.9 12.0 - 16.0 G/DL 05/29/2021 10:51 AM CDT [facility] HCT 43.2 36.0 - 47.0 % 05/29/2021 10:51 AM CDT [facility] MCV 88.3 78.0 - 100.0 FL 05/29/2021 10:51 AM CDT [facility] MCH 28.4 27.0 - 31.0 PG 05/29/2021 10:51 AM CDT [facility] MCHC 32.2(L) 33.0 - 36.0 G/DL 05/29/2021 10:51 AM CDT [facility] RDW 13.6 11.5 - 14.5 % 05/29/2021 10:51 AM CDT [facility] PLT 48(L) 150 - 350 x10'3/uL 05/29/2021 10:51 AM CDT [facility] MPV RESULTS NOT AVAILABLE 7.4 - 10.4 FL 05/29/2021 10:51 AM CDT [facility] DIFFERENTIAL COMMENT NORMAL REFERENCE RANGE NOT ESTABLISHED FOR THE PROPORTIONAL LEUKOCYTE DIFFERENTIAL. 05/29/2021 10:51 AM CDT [facility] SEG NEUTROPHILS 71.0 % 10:51 AM CDT [facility] LYMPHOCYTES 18.8 % 05/29/2021 10:51 AM CDT [facility] MONOCYTES 5.6 % 05/29/2021 10:51 AM CDT [facility] EOSINOPHILS 3.8 % 05/29/2021 10:51 AM CDT [facility] BASOPHILS 0.6 % 05/29/2021 10:51 AM CDT [facility] IMMATURE GRANS % 0.2 % 05/29/20 10:51 AM CDT [facility] NRBC 0.0 % 05/29/2021 10:51 AM CDT [facility] ABS. NEUTROPHILS 7.31 1.60 - 8.30 x10'3/uL 05/29/2021 10:51 AM CDT [facility] ABS. LYMPHOCYTES 1.94 0.80 - 4.70 x10'3/uL 05/29/2021 10:51 AM CDT [facility] ABS. MONOCYTES 0.58 0.00 - 1.50 x10'3/uL 05/29/2021 10:51 AM CDT [facility] ABS. EOSINOPHILS 0.39 0.00 - 0.40 x10'3/uL 05/29/2021 10:51 AM CDT [facility] ABS. BASOPHILS 0.06 0.00 - 0.20 x10'3/uL 05/29/2021 10:51 AM CDT [facility] ABS. IMMATURE GRANULOCYTES 0.02 0.00 - 0.03 x10'3/uL 05/29/2021 10:51 AM CDT [facility] ABS. NUCLEATED RBC'S 0.00 0.00 x10'3/uL 05/29/2021 10:51 AM CDT [facility] PLT MORPH. DECREASED 05/29/2021 10:51 AM CDT [facility] RBC MORPHOLOGY NORMAL 05/29/2021 10:51 AM CDT [facility] 05/29/2021 10:2 0 AM CDT Roberta Alex MD LABORATORY Final Result [facility] [address] [place] [address], documented in this encounter Visit Diagnoses Diagnosis Thrombocytopenia ([facility]/HCC) Thrombocytopenia, unspecified Chronic ITP (idiopathic thrombocytopenia) ([facility]CC) Immune thrombocytopenic purpura documented in this encounter Care Teams Body Man Relationship Specialty Start Date End Date Alejandro Blevins MD PCP - General FAMILY PRACTICE 12/10/19 documented as of this encounter
--- OUTSIDE RECORDS SUMMARY | 2024-07-11 09:59 | XMS_ITS | Encounter Summary ---
Author Organization [facility] Address [address] [place] [address]. [place], [place] [address] [place] [address] Care Team Providers Care Senior Clinical Research Scientist Name Role Phone Alejandro Blevins MD Primary Care Provider [phone] Encounter Details Date Type Department Care Team (Latest Contact Info) Description 05/15/2021 Travel Social History Tobacco Use Types Packs/Day Years Used Date Smoking Tobacco: Former Smokeless Tobacco: Current Comments No Sex and Gender Information Value Date Recorded Sex Assigned at Not on file Legal Sex Female 11:30 PM CITY MARSHAL Gender Identity Female 11/10/2021 3:09 PM CDT [...] Assessment Author Status No 07/30/2020 10:48 PM CITY MARSHAL Acti ve * RETIRED Are you blind or do you have serious difficulty seeing, even when wearing glasses? Answer Date of Assessment Author Status No 07/30/2020 10:46 PM CITY MARSHAL Acti ve * Do you have serious difficulty walking or climbing stairs? Answer Date of Assessment Author Status No 07/30/2020 10:46 PM CITY MARSHAL Nella Le RN Active * Do you [...] st Contact Info) Description 09/25/2024 11:30 AM CITY MARSHAL Appointment [place] [id number] [facility] [address] Roberta Alex MD [address] [place] [address] 09/25/2024 11:40 AM CITY MARSHAL Office Visit [facility] On license of [facility] [place] [address] Roberta Alex MD [address] [place] [address] 399931 documented as of this encounter Visit Diagnoses Not on filedocumented in this encounter Care Teams Senior Clinical Research Scientist Relationship Specialty Start Date End Date Alejandro Blevins MD PCP - General FAMILY PRACTICE 12/10/19 documented as of this encounter
--- OUTSIDE RECORDS SUMMARY | 2024-07-11 09:59 | XMS_ITS | Encounter Summary ---
Author Organization [facility] Address [address] [place] [address]. [place], [place] [address] [place] [address] Care Team Providers Care Superintendent Institution Name Role Phone Alejandro Blevins MD Primary Care Provider [phone] Encounter Details Date Type Department Care Team (Latest Contact Info) Description 01/13/2021 Travel Social History Tobacco Use Types Packs/Day Years Used Date Smoking Tobacco: Former Smokeless Tobacco: Current Comments Yes Sex and Gender Information Value Date Recorded Sex Assigned at Not on file Legal Sex Female 11:30 PM CHIEF II DISPATCHER Gender Identity Female 11/10/2021 3:09 PM [...] Author Status No 07/30/2020 10:48 PM CHIEF II DISPATCHER Acti ve * RETIRED Are you blind or do you have serious difficulty seeing, even when wearing glasses? Answer Date of Assessment Author Status No 07/30/2020 10:46 PM CHIEF II DISPATCHER Acti ve * Do you have serious difficulty walking or climbing stairs? Answer Date of Assessment Author Status No 07/30/2020 10:46 PM CHIEF II DISPATCHER Nella Le RN Active * Do you have difficulty dressing or bathing? Answer Date of Assessment Author Status No 07/30/2020 10:46 PM CHIEF II DISPATCHER Nella Le RN Active * Because of [...] Contact Info) Description 09/25/2024 11:30 AM CHIEF II DISPATCHER Appointment [place] [id number] [facility] [place] [address] Roberta Alex MD [address] [place] [address] 09/25/2024 11:40 AM CHIEF II DISPATCHER Office Visit [facility] [place] [address] Roberta Alex MD [address] [place] [address] 770671 documented as of this encounter Visit Diagnoses Not on filedocumented in this encounter Care Teams Superintendent Institution Relationship Specialty Start Date End Date Alejandro Blevins MD PCP - General FAMILY PRACTICE 12/10/19 documented as of this encounter
--- OUTSIDE RECORDS SUMMARY | 2024-07-11 09:59 | XMS_ITS | Encounter Summary ---
Author Organization [facility] Address [address] [place] [address]. [place], [place] [address] [place] [address] Care Team Providers Care Diving Judge Name Role Phone Alejandro Blevins MD Primary Care Provider [phone] Reason for Referral * (Routine) - Closed Specialty Diagnoses / Procedures Referred By Scarlet t Referred To Contact Procedures NERVE BLOCK Silas Mcneil DO [address] [place] [address] Phone: tel: fax: Referral ID Status Reason Start Date Expiration Date Visits Re quested Visits Authorized [id number] Closed 02/24/2021 03/27/2022 1 1 Reason for Visit * Reason Comments Dental Problem Encounter Details Date Type Department Care Team (Late st Contact Info) Description 02/24/2021 12:38 PM CDT - 02/24/2021 2:09 PM CDT Emergency [facility] [place] [address] Silas Mcneil DO [address] [place] [address] Dental Problem Discharge Disposition: Home or Self Care (Routine Discharge) Social History Tobacco Use Types Packs/Day Years Used Date Smoking Tobacco: Former Smokeless Tobacco: Current Comments No Sex and Gender Information Value Date Recorded Sex Assigned at Not on file Legal Sex Female 11:30 PM REGISTRAR COLLEGE [employer] UNIVERSITY Gender Identity Female 11/10/2021 3:09 PM CDT [...] Assessment Author Status No 07/30/2020 10:48 PM REGISTRAR COLLEGE OR UNIVERSITY Acti ve * RETIRED Are you blind or do you have serious difficulty seeing, even when wearing glasses? Answer Date of Assessment Author Status No 07/30/2020 10:46 PM REGISTRAR COLLEGE OR UNIVERSITY Acti ve * Do you have serious [...] sent through Care Everywhere. * Dental Pain (Burmese) * Tooth Decay Discharge Instructions, Adult (Burmese) * Dental Pain ED (Burmese) documented in this encounter Medications at Time [...] 2:08 PM CDT Patient discharge ambulates to [facility] with no sign of distress * Silas [...] st Contact Info) Description 09/25/2024 11:30 AM REGISTRAR COLLEGE OR UNIVERSITY Appointment [facility] [address] [place] [address] Roberta Alex MD [address] [place] [address] 09/25/2024 11:40 AM REGISTRAR COLLEGE OR UNIVERSITY Office Visit [facility] [address] [place] [address] Roberta Alex MD [address] [place] [address] [phone] (work) documented as of this encounter Procedures [...] RN) documented in this encounter Care Teams Diving Judge Relationship Specialty Start Date End Date Alejandro Blevins MD PCP - General FAMILY PRACTICE 12/10/19 documented as of this encounter
--- OUTSIDE RECORDS SUMMARY | 2024-07-11 09:59 | XMS_ITS | Encounter Summary ---
Author Organization [facility] Address [address] [place] [address]. [place] [address] [place] [address] Care Team Providers Care Table Games Manager Name Role Phone Alejandro Blevins MD Primary Care Provider [phone] Reason for Visit * Reason Comments Infusion Therapy * Treatment/Therapy Plan Authorization (Routine) - Closed Specialty Diagnoses / Procedures Referred By Contac t Referred To Contact Diagnoses Iron deficiency anemia due to chronic blood loss Procedures Roberta Wood MD [address] [place] [address] Phone: tel: fax: [facility] [place] [address] Phone: tel: Referral ID Status Reason Start Date Expiration Date Visits Re quested Visits Authorized [id number] Closed 12/31/2020 07/24/2021 1 1 Encounter Details Date Type Department Care Team (Latest Contact Info) Description 01/27/2021 1:00 PM CDT - 01/27/2021 11:59 PM CDT Hospital Encounter [facility] [place] [address] Roberta Alex MD [address] [place] [address] Infusion Therapy Discharge Disposition: Home or Self Care (Routine Discharge) Social History Tobacco Use Types Packs/Day Years Used Date Smoking Tobacco: Former Smokeless Tobacco: Current Comments Yes Sex and Gender Information Value Date Recorded Sex Assigned at Not on file Legal Sex Female 11:30 PM ASSEMBLY AND PACKING SUPERVISOR Gender Identity Female 11/10/2021 3:09 PM [...] Assessment Author Status No 07/30/2020 10:48 PM ASSEMBLY AND PACKING SUPERVISOR Acti ve * RETIRED Are you blind or do you have serious difficulty seeing, even when wearing glasses? Answer Date of Assessment Author Status No 07/30/2020 10:46 PM ASSEMBLY AND PACKING SUPERVISOR Acti ve * Do you have serious difficulty walking or climbing stairs? Answer Date of Assessment Author Status No 07/30/2020 10:46 PM ASSEMBLY AND PACKING SUPERVISOR Nella Le RN Active * Do you have difficulty dressing or bathing? Answer Date of Assessment Author Status No 07/30/2020 10:46 PM ASSEMBLY AND PACKING SUPERVISOR Nella Le RN Active * Because [...] Date Author Status No 07/30/2020 10:46 PM ASSEMBLY AND PACKING SUPERVISOR Nella Le RN Active documented in [...] st Contact Info) Description 09/25/2024 11:30 AM ASSEMBLY AND PACKING SUPERVISOR Appointment [facility] [address] [place] [address] Roberta Alex MD [address] [place] [address] [phone] 09/25/2024 11:40 AM ASSEMBLY AND PACKING SUPERVISOR Office Visit [facility] [address] [place] [address] Roberta Alex MD [address] [place] [address] documented as of this encounter Visit Diagnoses [...] mL/hr documented in this encounter Care Teams Table Games Manager Relationship Specialty Start Date End Date Alejandro Blevins MD PCP - General FAMILY PRACTICE 12/10/19 documented as of this encounter
--- OUTSIDE RECORDS SUMMARY | 2024-07-11 09:59 | XMS_ITS | Encounter Summary ---
Author Organization [facility] Address [address] [place] [address]. [place] [address] [place] [address] Care Team Providers Care Lumber Stacker Driver Name Role Phone Alejandro Blevins MD Primary Care Provider [phone] Reason for Visit * Reason Onset Date Comments Results 04/24/2021 Encounter Details Date Type Department Care Team (Late st Contact Info) Description 04/24/2021 Orders Only [facility] [address] [place] [address] [phone] Roberta Alex MD [address] [place] [address] Results Social History Tobacco Use Types Packs/Day Years Used Date Smoking Tobacco: Former Smokeless Tobacco: Current Comments No Sex and Gender Information Value Date Recorded Sex Assigned at Not on file Legal Sex Female 11:30 PM DIRECTORY ASSISTANCE OPERATOR Gender Identity Female 11/10/2021 3:09 PM [...] Assessment Author Status No 07/30/2020 10:48 PM DIRECTORY ASSISTANCE OPERATOR Acti ve * RETIRED Are you blind or do you have serious difficulty seeing, even when wearing glasses? Answer Date of Assessment Author Status No 07/30/2020 10:46 PM DIRECTORY ASSISTANCE OPERATOR Acti ve * Do you have [...] st Contact Info) Description 09/25/2024 11:30 AM DIRECTORY ASSISTANCE OPERATOR Appointment [facility] [place] [address] Roberta Alex MD [address] [place] [address] 09/25/2024 11:40 AM DIRECTORY ASSISTANCE OPERATOR Office Visit [facility] [place] [address] Roberta Alex MD [address] [place] [address] documented as of this encounter Visit Diagnoses Not on filedocumented in this encounter Care Teams Lumber Stacker Driver Relationship Specialty Start Date End Date Alejandro Blevins MD PCP - General FAMILY PRACTICE 12/10/19 documented as of this encounter
--- OUTSIDE RECORDS SUMMARY | 2024-07-11 09:59 | XMS_ITS | Encounter Summary ---
Author Organization [facility] Address [address] [place] [address]. [place], [place] [address] [place] [address] Care Team Providers Care Digital Asset Coordinator Name Role Phone Alejandro Blevins MD Primary Care Provider [phone] Encounter Details Date Type Department Care Team (Latest Contact Info) Description 05/08/2021 Travel Social History Tobacco Use Types Packs/Day Years Used Date Smoking Tobacco: Former Smokeless Tobacco: Current Comments No Sex and Gender Information Value Date Recorded Sex Assigned at Not on file Legal Sex Female 11:30 PM EXECUTIVE SALES MANAGER Gender Identity Female 11/10/2021 3:09 PM [...] Author Status No 07/30/2020 10:48 PM EXECUTIVE SALES MANAGER Acti ve * RETIRED Are you blind or do you have serious difficulty seeing, even when wearing glasses? Answer Date of Assessment Author Status No 07/30/2020 10:46 PM EXECUTIVE SALES MANAGER Acti ve * Do you have serious difficulty walking or climbing stairs? Answer Date of Assessment Author Status No 07/30/2020 10:46 PM EXECUTIVE SALES MANAGER Nella Le RN Active * Do you have difficulty dressing or bathing? Answer Date of Assessment Author Status No 07/30/2020 10:46 PM EXECUTIVE SALES MANAGER Nella Le RN Active * Because [...] st Contact Info) Description 09/25/2024 11:30 AM EXECUTIVE SALES MANAGER Appointment [place] [phone] [facility] [place] [address] Roberta Alex MD [address] [place] [address] 09/25/2024 11:40 AM EXECUTIVE SALES MANAGER Office Visit [facility] [place] [address] Roberta Alex MD [address] [place] [address] [phone] documented as of this encounter Visit Diagnoses Not on filedocumented in this encounter Care Teams Digital Asset Coordinator Relationship Specialty Start Date End Date Alejandro Blevins MD PCP - General FAMILY PRACTICE 12/10/19 documented as of this encounter
--- OUTSIDE RECORDS SUMMARY | 2024-07-11 09:59 | XMS_ITS | Encounter Summary ---
Author Organization [facility] Address [address] [place] [address]. [place], [place] [address] [place] [address] Care Team Providers Care Sheet Metal Supervisor Name Role Phone Alejandro Blevins MD Primary Care Provider [phone] Encounter Details Date Type Department Care Team (Latest Contact Info) Description 02/24/2021 Travel Social History Tobacco Use Types Packs/Day Years Used Date Smoking Tobacco: Former Smokeless Tobacco: Current Comments No Sex and Gender Information Value Date Recorded Sex Assigned at Not on file Legal Sex Female 11:30 PM SALES OPERATIONS DIRECTOR Gender Identity Female 11/10/2021 3:09 PM [...] Author Status No 07/30/2020 10:48 PM SALES OPERATIONS DIRECTOR Acti ve * RETIRED Are you blind or do you have serious difficulty seeing, even when wearing glasses? Answer Date of Assessment Author Status No 07/30/2020 10:46 PM SALES OPERATIONS DIRECTOR Acti ve * Do you have serious difficulty walking or climbing stairs? Answer Date of Assessment Author Status No 07/30/2020 10:46 PM SALES OPERATIONS DIRECTOR Nella Le RN Active * Do you have difficulty dressing or bathing? Answer Date of Assessment Author Status No 07/30/2020 10:46 PM SALES OPERATIONS DIRECTOR Nella Le RN Active * Because [...] Contact Info) Description 09/25/2024 11:30 AM SALES OPERATIONS DIRECTOR Appointment [place] [phone] [place] [address] Roberta Alex MD [address] [place] [address] 09/25/2024 11:40 AM SALES OPERATIONS DIRECTOR Office Visit [facility] [place] [address] Roberta Alex MD [address] [place] [address] [phone] documented as of this encounter Visit Diagnoses Not on filedocumented in this encounter Care Teams Sheet Metal Supervisor Relationship Specialty Start Date End Date Alejandro Blevins MD PCP - General FAMILY PRACTICE 12/10/19 documented as of this encounter
--- OUTSIDE RECORDS SUMMARY | 2024-07-11 09:59 | XMS_ITS | Encounter Summary ---
Author Organization [facility] Address [address] [place] [address]. [place] [address] [place] [address] Care Team Providers Care Parts Delivery Driver Name Role Phone Alejandro Blevins MD Primary Care Provider [phone] Encounter Details Date Type Department Care Team (Latest Contact Info) Description 05/08/2021 10:45 AM CDT - 05/08/2021 11:59 PM CDT Hospital Encounter [address] [place] [address] Roberta Alex MD [address] [place] [address] Discharge Disposition: Home or Self Care (Routine Discharge) Social History Tobacco Use Types Packs/Day Years Used Date Smoking Tobacco: Former Smokeless Tobacco: Current Comments No Sex and Gender Information Value Date Recorded Sex Assigned at Not on file Legal Sex Female 11:30 PM NURSING STAFFING COORDINATOR Gender Identity Female 11/10/2021 3:09 PM [...] Author Status No 07/30/2020 10:48 PM NURSING STAFFING COORDINATOR Acti ve * RETIRED Are you blind or do you have serious difficulty seeing, even when wearing glasses? Answer Date of Assessment Author Status No 07/30/2020 10:46 PM NURSING STAFFING COORDINATOR Acti ve * Do you have [...] Date Type Department Care Team (Late st [facility] Info) Description 09/25/2024 11:30 AM NURSING STAFFING COORDINATOR Appointment [facility] [address] [place] [address] Roberta Alex MD [address] [place] [address] 09/25/2024 11:40 AM NURSING STAFFING COORDINATOR Office Visit [facility] [place] [address] Roberta Alex MD [address] [place] [address] documented as of this encounter Procedures Procedure Name Priority Date/Time Associated Diagnosis Comments CBC W/DIFF AUTOMATED Routine 05/08/2021 12:48 PM CDT Thrombocytopenia documented in this encounter Results * (ABNORMAL) CBC W/DIFF AUTOMATED (05/08/2021 12:48 PM CDT) WBC 10.5 4.0 - 10.8 x10'3/uL 05/08/2021 12:59 PM CDT [facility] RBC 4.74 4.10 - 5.40 x10'6/uL 05/08/2021 12:59 PM CDT [facility] HGB 13.4 12.0 - 16.0 G/DL 05/08/2021 12:59 PM CDT [facility] HCT 42.7 36.0 - 47.0 % 05/08/2021 12:59 PM CDT [facility] MCV 90.1 78.0 - 100.0 FL 05/08/2021 12:59 PM CDT [facility] MCH 28.3 27.0 - 31.0 PG 05/08/2021 12:59 PM CDT [facility] MCHC 31.4(L) 33.0 - 36.0 G/DL 05/08/2021 12:59 PM CDT [facility] RDW 13.7 11.5 - 14.5 % 05/08/2021 12:59 PM CDT [facility] PLT 52(L) 150 - 350 x10'3/uL 05/08/2021 12:59 PM CDT [facility] MPV RESULTS NOT AVAILABLE 7.4 - 10.4 FL 05/08/2021 12:59 PM CDT [facility] DIFFERENTIAL COMMENT NORMAL REFERENCE RANGE NOT ESTABLISHED FOR THE PROPORTIONAL LEUKOCYTE DIFFERENTIAL. 05/08/2021 12:59 PM CDT [facility] SEG NEUTROPHILS 74.3 % 1:08 PM CDT [facility] LYMPHOCYTES 16.9 % 05/08/2021 1:08 PM CDT [facility] MONOCYTES 4.8 % 05/08/2021 1:08 PM CDT [facility] EOSINOPHILS 3.1 % 05/08/2021 1:08 PM CDT [facility] BASOPHILS 0.6 % 05/08/2021 1:08 PM CDT [facility] IMMATURE GRANS % 0.3 % 05/08/20 1:08 PM CDT [facility] NRBC 0.0 % 05/08/2021 1:08 PM CDT [facility] ABS. NEUTROPHILS 7.80 1.60 - 8.30 x10'3/uL 05/08/2021 1:08 PM CDT [facility] ABS. LYMPHOCYTES 1.77 0.80 - 4.70 x10'3/uL 05/08/2021 1:08 PM CDT [facility] ABS. MONOCYTES 0.50 0.00 - 1.50 x10'3/uL 05/08/2021 1:08 PM CDT [facility] ABS. EOSINOPHILS 0.33 0.00 - 0.40 x10'3/uL 05/08/2021 1:08 PM CDT [facility] ABS. BASOPHILS 0.06 0.00 - 0.20 x10'3/uL 05/08/2021 1:08 PM CDT [facility] ABS. IMMATURE GRANULOCYTES 0.03 0.00 - 0.03 x10'3/uL 05/08/2021 1:08 PM CDT [facility] ABS. NUCLEATED RBC'S 0.00 0.00 x10'3/uL 05/08/2021 1:08 PM CDT [facility] PLT MORPH. DECREASED 05/08/2021 1:08 PM CDT [facility] RBC MORPHOLOGY NORMAL 05/08/2021 1:08 PM CDT [facility] 05/08/2021 12:4 8 PM CDT Roberta Alex MD LABORATORY Final Result [facility] [address] [place] [address], documented in this encounter Visit Diagnoses Diagnosis Thrombocytopenia (CMS/HCC) Thrombocytopenia, unspecified documented in this encounter Care Teams Parts Delivery Driver Relationship Specialty Start Date End Date Alejandro Blevins MD PCP - General FAMILY PRACTICE 12/10/19 documented as of this encounter
--- OUTSIDE RECORDS SUMMARY | 2024-07-11 09:59 | XMS_ITS | Encounter Summary ---
Author Organization [facility] Address [address] [place] [address]. [place] [address] [place] [address] Care Team Providers Care Mess Cook Name Role Phone Alejandro Blevins MD Primary Care Provider [phone] Encounter Details Date Type Department Care Team (Late st Contact Info) Description 05/01/2021 Orders Only [address] [place] [address] Tejinder Garcia, [facility] Social History Tobacco Use Types Packs/Day Years Used Date Smoking Tobacco: Former Smokeless Tobacco: Current Comments No Sex and Gender Information Value Date Recorded Sex Assigned at Not on file Legal Sex Female 11:30 PM PERSONAL BANKING REPRESENTATIVE Gender Identity Female 11/10/2021 3:09 PM [...] Author Status No 07/30/2020 10:48 PM PERSONAL BANKING REPRESENTATIVE Acti ve * RETIRED Are you blind or do you have serious difficulty seeing, even when wearing glasses? Answer Date of Assessment Author Status No 07/30/2020 10:46 PM PERSONAL BANKING REPRESENTATIVE Acti ve * Do you have serious difficulty walking or climbing stairs? Answer Date of Assessment Author Status No 07/30/2020 10:46 PM PERSONAL BANKING REPRESENTATIVE Nella Le RN Active * Do you have difficulty dressing or bathing? Answer Date of Assessment Author Status No 07/30/2020 10:46 PM PERSONAL BANKING REPRESENTATIVE Nella Le RN Active * Because [...] Contact Info) Description 09/25/2024 11:30 AM PERSONAL BANKING REPRESENTATIVE Appointment [facility] [address] [place] [address] Roberta Alex MD [address] [place] [address] 09/25/2024 11:40 AM PERSONAL BANKING REPRESENTATIVE Office Visit [facility] [address] [place] [address] Roberta Alex MD [address] [place] [address] documented as of this encounter Results * (ABNORMAL) CBC W/DIFF AUTOMATED (05/01/2021 1:59 PM CDT) WBC 7.4 4.0 - 10.8 x10'3/uL 05/01/2021 2:24 PM CDT [facility] RBC 5.02 4.10 - 5.40 x10'6/uL 05/01/2021 2:24 PM CDT [facility] HGB 13.8 12.0 - 16.0 G/DL 05/01/2021 2:24 PM CDT [facility] HCT 44.1 36.0 - 47.0 % 05/01/2021 2:24 PM CDT [facility] MCV 87.8 78.0 - 100.0 FL 05/01/2021 2:24 PM CDT [facility] MCH 27.5 27.0 - 31.0 PG 05/01/2021 2:24 PM CDT [facility] MCHC 31.3(L) 33.0 - 36.0 G/DL 05/01/2021 2:24 PM CDT [facility] RDW 14.2 11.5 - 14.5 % 05/01/2021 2:24 PM CDT [facility] PLT 25(LL) 150 - 350 x10'3/uL 05/01/2021 2:24 PM CDT [facility] Comment: CRITICAL VALUE CALLED TO GISELLA AT 1423 READ BACK AND VERIFIED RESULT CHECKED MPV RESULTS NOT AVAILABLE 7.4 - 10.4 FL 05/01/2021 2:24 PM CDT [facility] DIFFERENTIAL COMMENT NORMAL REFERENCE RANGE NOT ESTABLISHED FOR THE PROPORTIONAL LEUKOCYTE DIFFERENTIAL. 05/01/2021 2:24 PM CDT [facility] SEG NEUTROPHILS 69.4 % 2:57 PM CDT [facility] LYMPHOCYTES 20.0 % 05/01/2021 2:57 PM CDT [facility] MONOCYTES 5.3 % 05/01/2021 2:57 PM CDT [facility] EOSINOPHILS 4.2 % 05/01/2021 2:57 PM CDT [facility] BASOPHILS 1.0 % 05/01/2021 2:57 PM CDT [facility] IMMATURE GRANS % 0.1 % 05/01/20 2:57 PM CDT [facility] NRBC 0.0 % 05/01/2021 2:57 PM CDT [facility] ABS. NEUTROPHILS 5.14 1.60 - 8.30 x10'3/uL 05/01/2021 2:57 PM CDT [facility] ABS. LYMPHOCYTES 1.48 0.80 - 4.70 x10'3/uL 05/01/2021 2:57 PM CDT [facility] ABS. MONOCYTES 0.39 0.00 - 1.50 x10'3/uL 05/01/2021 2:57 PM CDT [facility] ABS. EOSINOPHILS 0.31 0.00 - 0.40 x10'3/uL 05/01/2021 2:57 PM CDT [facility] ABS. BASOPHILS 0.07 0.00 - 0.20 x10'3/uL 05/01/2021 2:57 PM CDT [facility] ABS. IMMATURE GRANULOCYTES 0.01 0.00 - 0.03 x10'3/uL 05/01/2021 2:57 PM CDT [facility] ABS. NUCLEATED RBC'S 0.00 0.00 x10'3/uL 05/01/2021 2:57 PM CDT [facility] PLT MORPH. 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
--- OUTSIDE RECORDS SUMMARY | 2024-07-11 09:59 | XMS_ITS | Encounter Summary ---
Author Organization [facility] Address [address] [place] [address]. [place] [address] [place] [address] Care Team Providers Care Registration Rep Name Role Phone Alejandro Blevins MD Primary Care Provider [phone] Encounter Details Date Type Department Care Team (Late st Contact Info) Description 05/01/2021 Orders Only [address] [place] [address] Tejinder Garcia, [facility] Social History Tobacco Use Types Packs/Day Years Used Date Smoking Tobacco: Former Smokeless Tobacco: Current Comments No Sex and Gender Information Value Date Recorded Sex Assigned at Not on file Legal Sex Female 11:30 PM ZOO VETERINARIAN Gender Identity Female 11/10/2021 3:09 PM CDT [...] Assessment Author Status No 07/30/2020 10:48 PM ZOO VETERINARIAN Acti ve * RETIRED Are you blind or do you have serious difficulty seeing, even when wearing glasses? Answer Date of Assessment Author Status No 07/30/2020 10:46 PM ZOO VETERINARIAN Acti ve * Do you have serious difficulty walking or climbing stairs? Answer Date of Assessment Author Status No 07/30/2020 10:46 PM ZOO VETERINARIAN Nella Le RN Active * Do you [...] st Contact Info) Description 09/25/2024 11:30 AM ZOO VETERINARIAN Appointment [facility] [address] [facility] [place] [address] Roberta Alex MD [address] [place] [address] 09/25/2024 11:40 AM ZOO VETERINARIAN Office Visit [facility] [address] [place] [address] Roberta Alex MD [address] [place] [address] documented as of this encounter Visit Diagnoses Diagnosis Chronic ITP (idiopathic thrombocytopenia) ([facility])- Primary Immune thrombocytopenic purpura documented in this encounter Care Teams Registration Rep Relationship Specialty Start Date End Date Alejandro Blevins MD PCP - General FAMILY PRACTICE 12/10/19 documented as of this encounter
--- OUTSIDE RECORDS SUMMARY | 2024-07-11 09:59 | XMS_ITS | Encounter Summary ---
Author Organization [facility] Address [address] [place] [address]. [place] [address] [place] [address] Care Team Providers Care Manager Outreach Name Role Phone Alejandro Blevins MD Primary Care Provider [phone] Reason for Visit * Reason Comments Infusion Therapy * Treatment/Therapy Plan Authorization (Routine) - Closed Specialty Diagnoses / Procedures Referred By Contac t Referred To Contact Diagnoses Iron deficiency anemia due to chronic blood loss Procedures Roberta Wood MD [address] [place] [address] Phone: tel: fax: [facility] [place] [address] Phone: tel: Referral ID Status Reason Start Date Expiration Date Visits Re quested Visits Authorized [id number] Closed 12/31/2020 07/24/2021 1 1 Encounter Details Date Type Department Care Team (Latest Contact Info) Description 01/13/2021 1:18 PM CDT - 01/13/2021 11:59 PM CDT Hospital Encounter [facility] [place] [address] Roberta Alex MD [address] [place] [address] Infusion Therapy Discharge Disposition: Home or Self Care (Routine Discharge) Social History Tobacco Use Types Packs/Day Years Used Date Smoking Tobacco: Former Smokeless Tobacco: Current Comments Yes Sex and Gender Information Value Date Recorded Sex Assigned at Not on file Legal Sex Female 11:30 PM PRINCIPAL NETWORK ARCHITECT Gender Identity Female 11/10/2021 3:09 PM [...] Assessment Author Status No 07/30/2020 10:48 PM PRINCIPAL NETWORK ARCHITECT Acti ve * RETIRED Are you blind or do you have serious difficulty seeing, even when wearing glasses? Answer Date of Assessment Author Status No 07/30/2020 10:46 PM PRINCIPAL NETWORK ARCHITECT Acti ve * Do you have serious difficulty walking or climbing stairs? Answer Date of Assessment Author Status No 07/30/2020 10:46 PM PRINCIPAL NETWORK ARCHITECT Nella Le RN Active * Do you have difficulty dressing or bathing? Answer Date of Assessment Author Status No 07/30/2020 10:46 PM PRINCIPAL NETWORK ARCHITECT Nella Le RN Active * Because [...] st Contact Info) Description 09/25/2024 11:30 AM PRINCIPAL NETWORK ARCHITECT Appointment [facility] [address] [place] [address] Roberta Alex MD [address] [place] [address] 09/25/2024 11:40 AM PRINCIPAL NETWORK ARCHITECT Office Visit [facility] [address] [place] [address] [place] [address] Roberta Alex MD [address] [place] [address] documented as of this encounter Visit Diagnoses [...] mL/hr documented in this encounter Care Teams Manager Outreach Relationship Specialty Start Date End Date Alejandro Blevins MD PCP - General FAMILY PRACTICE 12/10/19 documented as of this encounter
--- OUTSIDE RECORDS SUMMARY | 2024-07-11 09:59 | XMS_ITS | Encounter Summary ---
Author Organization [facility] Address [address] [place] [address]. [place], [place] [address] [place] [address] Care Team Providers Care Biological Science Aide Name Role Phone Alejandro Blevins MD Primary Care Provider [phone] Encounter Details Date Type Department Care Team (Latest Contact Info) Description 05/01/2021 Travel Social History Tobacco Use Types Packs/Day Years Used Date Smoking Tobacco: Former Smokeless Tobacco: Current Comments No Sex and Gender Information Value Date Recorded Sex Assigned at Not on file Legal Sex Female 11:30 PM PHYSICIAN REPRESENTATIVE Gender Identity Female 11/10/2021 3:09 PM [...] Assessment Author Status No 07/30/2020 10:48 PM PHYSICIAN REPRESENTATIVE Acti ve * RETIRED Are you blind or do you have serious difficulty seeing, even when wearing glasses? Answer Date of Assessment Author Status No 07/30/2020 10:46 PM PHYSICIAN REPRESENTATIVE Acti ve * Do you have serious difficulty walking or climbing stairs? Answer Date of Assessment Author Status No 07/30/2020 10:46 PM PHYSICIAN REPRESENTATIVE Nella Le RN Active * Do you have difficulty dressing or bathing? Answer Date of Assessment Author Status No 07/30/2020 10:46 PM PHYSICIAN REPRESENTATIVE Nella Le RN Active * Because [...] Contact Info) Description 09/25/2024 11:30 AM PHYSICIAN REPRESENTATIVE Appointment [place] [id number] [facility] [place] [place] [address] Roberta Alex MD [address] [place] [address] 09/25/2024 11:40 AM PHYSICIAN REPRESENTATIVE Office Visit [facility] [place] [address] Roberta Alex MD [address] [place] [address] documented as of this encounter Visit Diagnoses Not on filedocumented in this encounter Care Teams Biological Science Aide Relationship Specialty Start Date End Date Alejandro Blevins MD PCP - General FAMILY PRACTICE 12/10/19 documented as of this encounter
--- OUTSIDE RECORDS SUMMARY | 2024-07-11 09:59 | XMS_ITS | Encounter Summary ---
Author Organization [facility] Address [address] [place] [address]. [place] [address] [place] [address] Care Team Providers Care Exchange Teller Name Role Phone Alejandro Blevins MD Primary Care Provider Encounter Details Date Type Department Care Team (Latest Contact Info) Description 04/23/2021 11:10 AM CDT - 04/23/2021 11:59 PM CDT Hospital Encounter [address] [place] [address] Roberta Alex MD [address] [place] [address] Discharge Disposition: Home or Self Care (Routine Discharge) Social History Tobacco Use Types Packs/Day Years Used Date Smoking Tobacco: Former Smokeless Tobacco: Current Comments No Sex and Gender Information Value Date Recorded Sex Assigned at Not on file Legal Sex Female 11:30 PM CATHETERIZATION LABORATORY TECHNICIAN Gender Identity Female 11/10/2021 3:09 [...] Assessment Author Status No 07/30/2020 10:48 PM CATHETERIZATION LABORATORY TECHNICIAN Acti ve * RETIRED Are you blind or do you have serious difficulty seeing, even when wearing glasses? Answer Date of Assessment Author Status No 07/30/2020 10:46 PM CATHETERIZATION LABORATORY TECHNICIAN Acti ve * Do you [...] st Contact Info) Description 09/25/2024 11:30 AM CATHETERIZATION LABORATORY TECHNICIAN Appointment [facility] [address] [place] [address] Roberta Alex MD [address] [place] [address] 09/25/2024 11:40 AM CATHETERIZATION LABORATORY TECHNICIAN Office Visit [facility] [address] [place] [address] Roberta Alex MD [address] [place] [address] documented as of this encounter Procedures Procedure Name Priority Date/Time Associated Diagnosis Comments CBC W/DIFF AUTOMATED Routine 04/23/2021 1:49 PM CDT Thrombocytopenia documented in this encounter Results * (ABNORMAL) CBC W/DIFF AUTOMATED (04/23/2021 1:49 PM CDT) WBC 8.0 4.0 - 10.8 x10'3/uL 04/23/2021 1:56 PM CDT [facility] RBC 5.09 4.10 - 5.40 x10'6/uL 04/23/2021 1:56 PM CDT [facility] HGB 13.9 12.0 - 16.0 G/DL 04/23/2021 1:56 PM CDT [facility] HCT 45.2 36.0 - 47.0 % 04/23/2021 1:56 PM CDT [facility] MCV 88.8 78.0 - 100.0 FL 04/23/2021 1:56 PM CDT [facility] MCH 27.3 27.0 - 31.0 PG 04/23/2021 1:56 PM CDT [facility] MCHC 30.8(L) 33.0 - 36.0 G/DL 04/23/2021 1:56 PM CDT [facility] RDW 14.9(H) 11.5 - 14.5 % 04/23/2021 1:56 PM CDT [facility] PLT 49(L) 150 - 350 x10'3/uL 04/23/2021 1:56 PM CDT [facility] MPV RESULTS NOT AVAILABLE 7.4 - 10.4 FL 04/23/2021 1:56 PM CDT [facility] DIFFERENTIAL COMMENT NORMAL REFERENCE RANGE NOT ESTABLISHED FOR THE PROPORTIONAL LEUKOCYTE DIFFERENTIAL. 04/23/2021 1:56 PM CDT [facility] SEG NEUTROPHILS 69.7 % 2:37 PM CDT [facility] LYMPHOCYTES 20.7 % 04/23/2021 2:37 PM CDT [facility] MONOCYTES 4.4 % 04/23/2021 2:37 PM CDT [facility] EOSINOPHILS 4.1 % 04/23/2021 2:37 PM CDT [facility] BASOPHILS 0.9 % 04/23/2021 2:37 PM CDT [facility] IMMATURE GRANS % 0.2 % 04/23/20 2:37 PM CDT [facility] NRBC 0.0 % 04/23/2021 2:37 PM CDT [facility] ABS. NEUTROPHILS 5.58 1.60 - 8.30 x10'3/uL 04/23/2021 2:37 PM CDT [facility] ABS. LYMPHOCYTES 1.66 0.80 - 4.70 x10'3/uL 04/23/2021 2:37 PM CDT [facility] ABS. MONOCYTES 0.35 0.00 - 1.50 x10'3/uL 04/23/2021 2:37 PM CDT [facility] ABS. EOSINOPHILS 0.33 0.00 - 0.40 x10'3/uL 04/23/2021 2:37 PM CDT [facility] ABS. BASOPHILS 0.07 0.00 - 0.20 x10'3/uL 04/23/2021 2:37 PM CDT [facility] ABS. IMMATURE GRANULOCYTES 0.02 0.00 - 0.03 x10'3/uL 04/23/2021 2:37 PM CDT [facility] ABS. NUCLEATED RBC'S 0.00 0.00 x10'3/uL 04/23/2021 2:37 PM CDT [facility] PLT MORPH. DECREASED 04/23/2021 2:37 PM CDT [facility] RBC MORPHOLOGY 1+ 04/23/2021 2:37 PM CDT [facility] Comment:ANISOCYTOSIS 04/23/2021 1:49 PM CDT Roberta Alex MD LABORATORY Final Result [facility] [address] [place] [address], documented in this encounter Visit Diagnoses Diagnosis Thrombocytopenia (CMS/HCC) Thrombocytopenia, unspecified documented in this encounter Care Teams Exchange Teller Relationship Specialty Start Date End Date Alejandro Blevins MD PCP - General FAMILY PRACTICE 12/10/19 documented as of this encounter
--- OUTSIDE RECORDS SUMMARY | 2024-07-11 09:59 | XMS_ITS | Encounter Summary ---
Author Organization [facility] Address [address] [place] [address]. [place] [address] [place] [address] Care Team Providers Care Drywall Finisher Foreman Name Role Phone Alejandro Blevins MD Primary Care Provider Reason for Visit * Reason Comments Injection * Injection (Routine) - Closed Specialty Diagnoses / Procedures Referred By Contac t Referred To Contact [facility] Infusion Therapy Diagnoses Nplate Procedures ROMIPLOSTIM INJECTION NURSE [place] [address] [place] [address] Phone: tel: [facility] [address] [address] Phone: tel: Referral ID Status Reason Start Date Expiration Date Visits Re quested Visits Authorized [id number] Closed 04/27/2021 10/25/2021 1 1 Encounter Details Date Type Department Care Team (Latest Contact Info) Description 05/01/2021 1:22 PM CDT - 05/01/2021 11:59 PM T Hospital Encounter [facility] [address] [place] [id number] Roberta Alex MD [address] [place] [address] Injection Discharge Disposition: Home or Self Care (Routine Discharge) Social History Tobacco Use Types Packs/Day Years Used Date Smoking Tobacco: Former Smokeless Tobacco: Current Comments No Sex and Gender Information Value Date Recorded Sex Assigned at Not on file Legal Sex Female 11:30 PM CREATIVE ENGAGEMENT DIRECTOR Gender Identity Female 11/10/2021 3:09 PM [...] Assessment Author Status No 07/30/2020 10:48 PM CREATIVE ENGAGEMENT DIRECTOR Acti ve * RETIRED Are you blind or do you have serious difficulty seeing, even when wearing glasses? Answer Date of Assessment Author Status No 07/30/2020 10:46 PM CREATIVE ENGAGEMENT DIRECTOR Acti ve * Do you have [...] st Contact Info) Description 09/25/2024 11:30 AM CREATIVE ENGAGEMENT DIRECTOR [facility]ointment [facility] [place] [address] Roberta Alex MD [address] [place] [address] 09/25/2024 11:40 AM CREATIVE ENGAGEMENT DIRECTOR Office Visit [facility] [place] [address] Roberta Alex MD [address] [place] [address] documented as of this encounter Visit Diagnoses Diagnosis Chronic ITP (idiopathic thrombocytopenia) ([facility]/HCC [facility])- Primary Immune thrombocytopenic purpura documented in [...] Arm documented in this encounter Care Teams Drywall Finisher Foreman Relationship Specialty Start Date End Date Alejandro Blevins MD PCP - General FAMILY PRACTICE 12/10/19 documented as of this encounter
--- OUTSIDE RECORDS SUMMARY | 2024-07-11 09:59 | XMS_ITS | Encounter Summary ---
Author Organization [facility] Address [facility] [place] [address] [place] [address] Care Team Providers Care Automation Qtp Tester Name Role Phone Alejandro Blevins MD Primary Care Provider [phone] Encounter Details Date Type Department Care Team (Latest Contact Info) Description 05/01/2021 1:21 PM CDT Hospital Encounter [facility] [address] [place] [address] Roberta Alex MD [address] [place], [place] [address] Discharge Disposition: Home or Self Care (Routine Discharge) Social History Tobacco Use Types Packs/Day Years Used Date Smoking Tobacco: Former Smokeless Tobacco: Current Comments No Sex and Gender Information Value Date Recorded Sex Assigned at Not on file Legal Sex Female 11:30 PM PRIVATE BRANCH EXCHANGE REPAIRER Gender Identity Female 11/10/2021 3:09 PM [...] Author Status No 07/30/2020 10:48 PM PRIVATE BRANCH EXCHANGE REPAIRER Acti ve * RETIRED Are you blind or do you have serious difficulty seeing, even when wearing glasses? Answer Date of Assessment Author Status No 07/30/2020 10:46 PM PRIVATE BRANCH EXCHANGE REPAIRER Acti ve * Do you have [...] Contact Info) Description 09/25/2024 11:30 AM PRIVATE BRANCH EXCHANGE REPAIRER Appointment [facility] [address] [place] [address] Roberta Alex MD [address] [place] [address] 09/25/2024 11:40 AM PRIVATE BRANCH EXCHANGE REPAIRER Office Visit [facility] [address] [place] [address] Roberta Alex MD [address] [place] [address] documented as of this encounter Procedures Procedure Name Priority Date/Time Associated Diagnosis Comments CBC W/DIFF AUTOMATED Routine 05/01/2021 1:59 PM CDT Chronic ITP (idiopathic thrombocytopenia) ([facility]/HCC [facility]/HCC) documented in this encounter Results * (ABNORMAL) CBC W/DIFF AUTOMATED (05/01/2021 1:59 PM CDT) WBC 7.4 4.0 - 10.8 x10'3/uL 05/01/2021 2:24 PM CDT [facility] RBC 5.02 4.10 - 5.40 x10'6/uL 05/01/2021 2:24 PM CDT [facility] HGB 13.8 12.0 - 16.0 G/DL 05/01/2021 2:24 PM CDT [facility] HCT 44.1 36.0 - 47.0 % 05/01/2021 2:24 PM CDT [facility] MCV 87.8 78.0 - 100.0 FL 05/01/2021 2:24 PM CDT [facility] MCH 27.5 27.0 - 31.0 PG 05/01/2021 2:24 PM CDT [facility] MCHC 31.3(L) 33.0 - 36.0 G/DL 05/01/2021 2:24 PM CDT [facility] RDW 14.2 11.5 - 14.5 % 05/01/2021 2:24 PM CDT [facility] PLT 25(LL) 150 - 350 x10'3/uL 05/01/2021 2:24 PM CDT [facility] Comment: CRITICAL VALUE CALLED TO GISELLA AT 1423 READ BACK AND VERIFIED RESULT CHECKED MPV RESULTS NOT AVAILABLE 7.4 - 10.4 FL 05/01/2021 2:24 PM CDT [facility] DIFFERENTIAL COMMENT NORMAL REFERENCE RANGE NOT ESTABLISHED FOR THE PROPORTIONAL LEUKOCYTE DIFFERENTIAL. 05/01/2021 2:24 PM CDT [facility] SEG NEUTROPHILS 69.4 % 2:57 PM CDT [facility] LYMPHOCYTES 20.0 % 05/01/2021 2:57 PM CDT [facility] MONOCYTES 5.3 % 05/01/2021 2:57 PM CDT [facility] EOSINOPHILS 4.2 % 05/01/2021 2:57 PM CDT [facility] BASOPHILS 1.0 % 05/01/2021 2:57 PM CDT [facility] IMMATURE GRANS % 0.1 % 05/01/20 2:57 PM CDT [facility] NRBC 0.0 % 05/01/2021 2:57 PM CDT [facility] ABS. NEUTROPHILS 5.14 1.60 - 8.30 x10'3/uL 05/01/2021 2:57 PM CDT [facility] ABS. LYMPHOCYTES 1.48 0.80 - 4.70 x10'3/uL 05/01/2021 2:57 PM CDT [facility] ABS. MONOCYTES 0.39 0.00 - 1.50 x10'3/uL 05/01/2021 2:57 PM CDT [facility] ABS. EOSINOPHILS 0.31 0.00 - 0.40 x10'3/uL 05/01/2021 2:57 PM CDT [facility] ABS. BASOPHILS 0.07 0.00 - 0.20 x10'3/uL 05/01/2021 2:57 PM CDT [facility] ABS. IMMATURE GRANULOCYTES 0.01 0.00 - 0.03 x10'3/uL 05/01/2021 2:57 PM CDT [facility] ABS. NUCLEATED RBC'S 0.00 0.00 x10'3/uL 05/01/2021 2:57 PM CDT [facility] PLT MORPH. DECREASED 05/01/2021 2:57 PM CDT [facility] RBC MORPHOLOGY 1+ 05/01/2021 2:57 PM CDT [facility] Comment:ANISOCYTOSIS 05/01/2021 1:59 PM CDT us Roberta Alex MD LABORATORY Final Result [facility] [address] [place] [address], documented in this encounter Visit Diagnoses Diagnosis Chronic ITP (idiopathic thrombocytopenia) ([facility]/HCC [facility]/HCC) Immune thrombocytopenic purpura documented in this encounter Care Teams Automation Qtp Tester Relationship Specialty Start Date End Date Alejandro Blevins MD PCP - General FAMILY PRACTICE 12/10/19 documented as of this encounter
--- OUTSIDE RECORDS SUMMARY | 2024-07-11 09:59 | XMS_ITS | Encounter Summary ---
Author Organization [facility] Address [address] [place] [address]. [place], [place] [address] [place] [address] Care Team Providers Care Line Server Name Role Phone Alejandro Blevins MD Primary Care Provider [phone] Encounter Details Date Type Department Care Team (Latest Contact Info) Description 01/06/2021 Travel Social History Tobacco Use Types Packs/Day Years Used Date Smoking Tobacco: Former Smokeless Tobacco: Current Comments Yes Sex and Gender Information Value Date Recorded Sex Assigned at Not on file Legal Sex Female 11:30 PM FAGOT HEATER Gender Identity Female 11/10/2021 3:09 PM CDT [...] Assessment Author Status No 07/30/2020 10:48 PM FAGOT HEATER Acti ve * RETIRED Are you blind or do you have serious difficulty seeing, even when wearing glasses? Answer Date of Assessment Author Status No 07/30/2020 10:46 PM FAGOT HEATER Acti ve * Do you have serious difficulty walking or climbing stairs? Answer Date of Assessment Author Status No 07/30/2020 10:46 PM FAGOT HEATER Nella Le RN Active * Do you have difficulty dressing or bathing? Answer Date of Assessment Author Status No 07/30/2020 10:46 PM FAGOT HEATER Nella Le RN Active * Because of [...] st Contact Info) Description 09/25/2024 11:30 AM FAGOT HEATER Appointment [place] [id number] [facility] [place] [address] Roberta Alex MD [address] [place] [address] 09/25/2024 11:40 AM FAGOT HEATER Office Visit [facility] [place] [address] Roberta Alex MD [address] [place] [address] documented as of this encounter Visit Diagnoses Not on filedocumented in this encounter Care Teams Line Server Relationship Specialty Start Date End Date Alejandro Blevins MD PCP - General FAMILY PRACTICE 12/10/19 documented as of this encounter
--- OUTSIDE RECORDS SUMMARY | 2024-07-11 09:59 | XMS_ITS | Encounter Summary ---
Author Organization [facility] Address [address] [place] [address]. [place], [place] [address] [place] [address] Care Team Providers Care Bakery Machine Mechanic Supervisor Name Role Phone Alejandro Blevins MD Primary Care Provider [phone] Encounter Details Date Type Department Care Team (Latest Contact Info) Description 01/27/2021 Travel Social History Tobacco Use Types Packs/Day Years Used Date Smoking Tobacco: Former Smokeless Tobacco: Current Comments Yes Sex and Gender Information Value Date Recorded Sex Assigned at Not on file Legal Sex Female 11:30 PM PASTER OPERATOR Gender Identity Female 11/10/2021 3:09 PM [...] Assessment Author Status No 07/30/2020 10:48 PM PASTER OPERATOR Acti ve * RETIRED Are you blind or do you have serious difficulty seeing, even when wearing glasses? Answer Date of Assessment Author Status No 07/30/2020 10:46 PM PASTER OPERATOR Acti ve * Do you have serious difficulty walking or climbing stairs? Answer Date of Assessment Author Status No 07/30/2020 10:46 PM PASTER OPERATOR Nella Le RN Active * Do you have difficulty dressing or bathing? Answer Date of Assessment Author Status No 07/30/2020 10:46 PM PASTER OPERATOR Nella Le RN Active * Because [...] st Contact Info) Description 09/25/2024 11:30 AM PASTER OPERATOR Appointment [place] [id number] [facility] [place] [address] Roberta Alex MD [address] [place] [address] 09/25/2024 11:40 AM PASTER OPERATOR Office Visit [facility] [place] [address] Roberta Alex MD [address] [place] [address] documented as of this encounter Visit Diagnoses Not on filedocumented in this encounter Care Teams Bakery Machine Mechanic Supervisor Relationship Specialty Start Date End Date Alejandro Blevins MD PCP - General FAMILY PRACTICE 12/10/19 documented as of this encounter
--- OUTSIDE RECORDS SUMMARY | 2024-07-11 09:59 | XMS_ITS | Encounter Summary ---
Author Organization [facility] Address [address] [place] [address]. [place], [place] [address] [place] [address] Care Team Providers Care Ebay Reseller Name Role Phone Alejandro Blevins MD Primary Care Provider [phone] Encounter Details Date Type Department Care Team (Latest Contact Info) Description 01/20/2021 Travel Social History Tobacco Use Types Packs/Day Years Used Date Smoking Tobacco: Former Smokeless Tobacco: Current Comments Yes Sex and Gender Information Value Date Recorded Sex Assigned at Not on file Legal Sex Female 11:30 PM SUPERVISOR IRRIGATION Gender Identity Female 11/10/2021 3:09 PM CDT [...] Author Status No 07/30/2020 10:48 PM SUPERVISOR IRRIGATION Acti ve * RETIRED Are you blind or do you have serious difficulty seeing, even when wearing glasses? Answer Date of Assessment Author Status No 07/30/2020 10:46 PM SUPERVISOR IRRIGATION Acti ve * Do you have serious difficulty walking or climbing stairs? Answer Date of Assessment Author Status No 07/30/2020 10:46 PM SUPERVISOR IRRIGATION Nella Le RN Active * Do you have difficulty dressing or bathing? Answer Date of Assessment Author Status No 07/30/2020 10:46 PM SUPERVISOR IRRIGATION Nella Le RN Active * Because of [...] Contact Info) Description 09/25/2024 11:30 AM SUPERVISOR IRRIGATION Appointment [place] [id number] [facility] [address] Roberta Alex MD [address] [place] [address] 09/25/2024 11:40 AM SUPERVISOR IRRIGATION Office Visit [facility] [place] [address] Roberta Alex MD [address] [place] [phone] documented as of this encounter Visit Diagnoses Not on filedocumented in this encounter Care Teams Ebay Reseller Relationship Specialty Start Date End Date Alejandro Blevins MD PCP - General FAMILY PRACTICE 12/10/19 documented as of this encounter
--- OUTSIDE RECORDS SUMMARY | 2024-07-11 09:59 | XMS_ITS | Encounter Summary ---
Author Organization [facility] Address [address] [place] [address]. [place] [address] [place] [address] Care Team Providers Care Gun Barrel Finisher Name Role Phone Alejandro Blevins MD Primary Care Provider Encounter Details Date Type Department Care Team (Latest Contact Info) Description 05/04/2021 8:00 AM CDT - 05/04/2021 11:59 PM CDT Hospital Encounter [address] [place] [address] Roberta Alex MD [address] [place] [address] Discharge Disposition: Home or Self Care (Routine Discharge) Social History Tobacco Use Types Packs/Day Years Used Date Smoking Tobacco: Former Smokeless Tobacco: Current Comments No Sex and Gender Information Value Date Recorded Sex Assigned at Not on file Legal Sex Female 11:30 PM BUSINESS MANAGEMENT INTERN Gender Identity Female 11/10/2021 3:09 PM [...] Status No 07/30/2020 10:48 PM BUSINESS MANAGEMENT INTERN Acti ve * RETIRED Are you blind or do you have serious difficulty seeing, even when wearing glasses? Answer Date of Assessment Author Status No 07/30/2020 10:46 PM BUSINESS MANAGEMENT INTERN Acti ve * Do you have [...] Info) Description 09/25/2024 11:30 AM BUSINESS MANAGEMENT INTERN Appointment [facility] [address] [place] [address] Robetra Alex MD [address] [place] [address] 09/25/2024 11:40 AM BUSINESS MANAGEMENT INTERN Office Visit [facility] [address] [place] [address] Roberta Alex MD [address] [place] [address] documented as of this encounter Procedures Procedure Name Priority Date/Time Associated Diagnosis Comments BLOOD BANK - SPECIMEN HOLD Routine 05/04/2021 11:10 AM CDT Chronic ITP (idiopathic thrombocytopenia) ([facility]/HCC) CBC W/DIFF AUTOMATED Routine 05/04/2021 11:10 AM CDT Thrombocytopenia documented in this encounter Results * Blood Bank - Specimen Hold (05/04/2021 11:10 AM CDT) SAMPLE LAB COLLECTED SPECIMEN 05/04/2021 10:36 AM CDT [facility] Blood specimen (specimen) 05/04/2021 11:10 AM CDT us Roberta Alex MD BLOOD BANK TEST ORDERABLES Fin al Result [facility] [address] [place] [address], * (ABNORMAL) CBC W/DIFF AUTOMATED (05/04/2021 11:10 AM CDT) [facility] WBC 6.3 4.0 - 10.8 x10'3/uL 05/04/2021 11:54 AM CDT [facility] RBC 4.92 4.10 - 5.40 x10'6/uL 05/04/2021 11:54 AM CDT [facility] HGB 13.6 12.0 - 16.0 G/DL 05/04/2021 11:54 AM CDT [facility] HCT 44.4 36.0 - 47.0 % 05/04/2021 11:54 AM CDT [facility] MCV 90.2 78.0 - 100.0 FL 05/04/2021 11:54 AM CDT [facility] MCH 27.6 27.0 - 31.0 PG 05/04/2021 11:54 AM CDT [facility] MCHC 30.6(L) 33.0 - 36.0 G/DL 05/04/2021 11:54 AM CDT [facility] RDW 13.7 11.5 - 14.5 % 05/04/2021 11:54 AM CDT [facility] PLT 36(L) 150 - 350 x10'3/uL 05/04/2021 11:54 AM CDT [facility] MPV RESULTS NOT AVAILABLE 7.4 - 10.4 FL 05/04/2021 11:54 AM CDT [facility] DIFFERENTIAL COMMENT NORMAL REFERENCE RANGE NOT ESTABLISHED FOR THE PROPORTIONAL LEUKOCYTE DIFFERENTIAL. 05/04/2021 11:54 AM CDT [facility] SEG NEUTROPHILS 61.5 % 12:32 PM CDT [facility] LYMPHOCYTES 25.9 % 05/04/2021 12:32 PM CDT [facility] MONOCYTES 5.7 % 05/04/2021 12:32 PM CDT [facility] EOSINOPHILS 5.7 % 05/04/2021 12:32 PM CDT [facility] BASOPHILS 0.9 % 05/04/2021 12:32 PM CDT [facility] IMMATURE GRANS % 0.3 % 05/04/20 12:32 PM CDT [facility] NRBC 0.0 % 05/04/2021 12:32 PM CDT [facility] ABS. NEUTROPHILS 3.87 1.60 - 8.30 x10'3/uL 05/04/2021 12:32 PM CDT [facility] ABS. LYMPHOCYTES 1.63 0.80 - 4.70 x10'3/uL 05/04/2021 12:32 PM CDT [facility] ABS. MONOCYTES 0.36 0.00 - 1.50 x10'3/uL 05/04/2021 12:32 PM CDT [facility] ABS. EOSINOPHILS 0.36 0.00 - 0.40 x10'3/uL 05/04/2021 12:32 PM CDT [facility] ABS. BASOPHILS 0.06 0.00 - 0.20 x10'3/uL 05/04/2021 12:32 PM CDT [facility] ABS. IMMATURE GRANULOCYTES 0.02 0.00 - 0.03 x10'3/uL 05/04/2021 12:32 PM CDT [facility] ABS. NUCLEATED RBC'S 0.00 0.00 x10'3/uL 05/04/2021 12:32 PM CDT [facility] PLT MORPH. DECREASED 05/04/2021 12:32 PM CDT [facility] RBC MORPHOLOGY NORMAL 05/04/2021 12:32 PM CDT [facility] 05/04/2021 11:1 0 AM CDT Roberta Alex MD LABORATORY Final Result [facility] [address] [place] [address], documented in this encounter Visit Diagnoses Diagnosis Thrombocytopenia ([facility]/HCC) Thrombocytopenia, unspecified Chronic ITP (idiopathic thrombocytopenia) ([facility]/HCC [facility]/HCC) Immune thrombocytopenic purpura documented in this encounter Care Teams Gun Barrel Finisher Relationship Specialty Start Date End Date Alejandro Blevins MD PCP - General FAMILY PRACTICE 12/10/19 documented as of this encounter
--- OUTSIDE RECORDS SUMMARY | 2024-07-11 09:59 | XMS_ITS | Encounter Summary ---
Author Organization [facility] Address [address] [place] [address]. [place] [address] [place] [address] Care Team Providers Care Gift Consultant Name Role Phone Alejandro Blevins MD Primary Care Provider [phone] Encounter Details Date Type Department Care Team (Latest Contact Info) Description 05/15/2021 10:51 AM CDT - 05/15/2021 11:59 PM CDT Hospital Encounter [address] [place] [address] Roberta Alex MD [address] [place] [address] Discharge Disposition: Home or Self Care (Routine Discharge) Social History Tobacco Use Types Packs/Day Years Used Date Smoking Tobacco: Former Smokeless Tobacco: Current Comments No Sex and Gender Information Value Date Recorded Sex Assigned at Not on file Legal Sex Female 11:30 PM RADIO REPAIRMAN Gender Identity Female 11/10/2021 3:09 PM CDT [...] Assessment Author Status No 07/30/2020 10:48 PM RADIO REPAIRMAN Acti ve * RETIRED Are you blind or do you have serious difficulty seeing, even when wearing glasses? Answer Date of Assessment Author Status No 07/30/2020 10:46 PM RADIO REPAIRMAN Acti ve * Do you have serious [...] Date Type Department Care Team (Late st [facility] Info) Description 09/25/2024 11:30 AM RADIO REPAIRMAN Appointment [facility] [address] [place] [address] Roberta Alex MD [address] [place] [address] [id number] 09/25/2024 11:40 AM RADIO REPAIRMAN Office Visit [facility] [place] [address] Roberta Alex MD [address] [place] [address] documented as of this encounter Procedures Procedure Name Priority Date/Time Associated Diagnosis Comments CBC W/DIFF AUTOMATED Routine 05/15/2021 10:58 AM CDT Thrombocytopenia documented in this encounter Results * (ABNORMAL) CBC W/DIFF AUTOMATED (05/15/2021 10:58 AM CDT) WBC 7.0 4.0 - 10.8 x10'3/uL 05/15/2021 11:23 AM CDT [facility] RBC 4.79 4.10 - 5.40 x10'6/uL 05/15/2021 11:23 AM CDT [facility] HGB 13.1 12.0 - 16.0 G/DL 05/15/2021 11:23 AM CDT [facility] HCT 43.1 36.0 - 47.0 % 05/15/2021 11:23 AM CDT [facility] MCV 90.0 78.0 - 100.0 FL 05/15/2021 11:23 AM CDT [facility] MCH 27.3 27.0 - 31.0 PG 05/15/2021 11:23 AM CDT [facility] MCHC 30.4(L) 33.0 - 36.0 G/DL 05/15/2021 11:23 AM CDT [facility] RDW 13.4 11.5 - 14.5 % 05/15/2021 11:23 AM CDT [facility] PLT 52(L) 150 - 350 x10'3/uL 05/15/2021 11:23 AM CDT [facility] MPV RESULTS NOT AVAILABLE 7.4 - 10.4 FL 05/15/2021 11:23 AM CDT [facility] DIFFERENTIAL COMMENT NORMAL REFERENCE RANGE NOT ESTABLISHED FOR THE PROPORTIONAL LEUKOCYTE DIFFERENTIAL. 05/15/2021 11:23 AM CDT [facility] SEG NEUTROPHILS 62.1 % 11:24 AM CDT [facility] LYMPHOCYTES 26.7 % 05/15/2021 11:24 AM CDT [facility] MONOCYTES 5.9 % 05/15/2021 11:24 AM CDT [facility] EOSINOPHILS 4.3 % 05/15/2021 11:24 AM CDT [facility] BASOPHILS 0.7 % 05/15/2021 11:24 AM CDT [facility] IMMATURE GRANS % 0.3 % 05/15/20 11:24 AM CDT [facility] NRBC 0.0 % 05/15/2021 11:24 AM CDT [facility] ABS. NEUTROPHILS 4.35 1.60 - 8.30 x10'3/uL 05/15/2021 11:24 AM CDT [facility] ABS. LYMPHOCYTES 1.87 0.80 - 4.70 x10'3/uL 05/15/2021 11:24 AM CDT [facility] ABS. MONOCYTES 0.41 0.00 - 1.50 x10'3/uL 05/15/2021 11:24 AM CDT [facility] ABS. EOSINOPHILS 0.30 0.00 - 0.40 x10'3/uL 05/15/2021 11:24 AM CDT [facility] ABS. BASOPHILS 0.05 0.00 - 0.20 x10'3/uL 05/15/2021 11:24 AM CDT [facility] ABS. IMMATURE GRANULOCYTES 0.02 0.00 - 0.03 x10'3/uL 05/15/2021 11:24 AM CDT [facility] ABS. NUCLEATED RBC'S 0.00 0.00 x10'3/uL 05/15/2021 11:24 AM CDT [facility] PLT MORPH. DECREASED 05/15/2021 11:24 AM CDT [facility] RBC MORPHOLOGY NORMAL 05/15/2021 11:24 AM CDT [facility] 05/15/2021 10:5 8 AM CDT Roberta Alex MD LABORATORY Final Result [facility] [address] [place] [address], documented in this encounter Visit Diagnoses Diagnosis Thrombocytopenia (CMS/HCC) Thrombocytopenia, unspecified documented in this encounter Care Teams Gift Consultant Relationship Specialty Start Date End Date Alejandro Blevins MD PCP - General FAMILY PRACTICE 12/10/19 documented as of this encounter
--- OUTSIDE RECORDS SUMMARY | 2024-07-11 09:59 | XMS_ITS | Encounter Summary ---
Author Organization [facility] Address [address] [place] [address]. [place], [place] [address] [place] [address] Care Team Providers Care Patent Agent Name Role Phone Alejandro Blevins MD Primary Care Provider [phone] Encounter Details Date Type Department Care Team (Latest Contact Info) Description 04/23/2021 Travel Social History Tobacco Use Types Packs/Day Years Used Date Smoking Tobacco: Former Smokeless Tobacco: Current Comments No Sex and Gender Information Value Date Recorded Sex Assigned at Not on file Legal Sex Female 11:30 PM MEAL ATTENDANT Gender Identity Female 11/10/2021 3:09 PM [...] Assessment Author Status No 07/30/2020 10:48 PM MEAL ATTENDANT Acti ve * RETIRED Are you blind or do you have serious difficulty seeing, even when wearing glasses? Answer Date of Assessment Author Status No 07/30/2020 10:46 PM MEAL ATTENDANT Acti ve * Do you have serious difficulty walking or climbing stairs? Answer Date of Assessment Author Status No 07/30/2020 10:46 PM MEAL ATTENDANT Nella Le RN Active * Do you have difficulty dressing or bathing? Answer Date of Assessment Author Status No 07/30/2020 10:46 PM MEAL ATTENDANT Nella Le RN Active * Because of [...] st Contact Info) Description 09/25/2024 11:30 AM MEAL ATTENDANT Appointment [place] [phone] [address] Roberta Alex MD [address] [place] [address] 09/25/2024 11:40 AM MEAL ATTENDANT Office Visit [facility] [place] [address] Roberta Alex MD [address] [place] [address] [phone] documented as of this encounter Visit Diagnoses Not on filedocumented in this encounter Care Teams Patent Agent Relationship Specialty Start Date End Date Alejandro Blevins MD PCP - General FAMILY PRACTICE 12/10/19 documented as of this encounter
--- OUTSIDE RECORDS SUMMARY | 2024-07-11 09:59 | XMS_ITS | Encounter Summary ---
Author Organization [facility] Address [address] [place] [address]. [place] [address] [place] [address] Care Team Providers Care Student Nurse Name Role Phone Alejandro Blevins MD Primary Care Provider [phone] Reason for Visit * Reason Comments Infusion Therapy * Treatment/Therapy Plan Authorization (Routine) - Closed Specialty Diagnoses / Procedures Referred By Contac t Referred To Contact Diagnoses Iron deficiency anemia due to chronic blood loss Procedures Roberta Wood MD [address] [place] [address] Phone: tel: fax: [facility] [place] [address] Phone: tel: Referral ID Status Reason Start Date Expiration Date Visits Re quested Visits Authorized [id number] Closed 12/31/2020 07/24/2021 1 1 Encounter Details Date Type Department Care Team (Latest Contact Info) Description 01/06/2021 1:21 PM CDT - 01/06/2021 11:59 PM CDT Hospital Encounter [facility] [place] [address] Roberta Alex MD [address] [place] [address] Infusion Therapy Discharge Disposition: Home or Self Care (Routine Discharge) Social History Tobacco Use Types Packs/Day Years Used Date Smoking Tobacco: Former Smokeless Tobacco: Current Comments Yes Sex and Gender Information Value Date Recorded Sex Assigned at Not on file Legal Sex Female 11:30 PM UTILIZATION REVIEW NURSE Gender Identity Female 11/10/2021 3:09 PM [...] Assessment Author Status No 07/30/2020 10:48 PM UTILIZATION REVIEW NURSE Acti ve * RETIRED Are you blind or do you have serious difficulty seeing, even when wearing glasses? Answer Date of Assessment Author Status No 07/30/2020 10:46 PM UTILIZATION REVIEW NURSE Acti ve * Do you have serious difficulty walking or climbing stairs? Answer Date of Assessment Author Status No 07/30/2020 10:46 PM UTILIZATION REVIEW NURSE Nella Le RN Active * Do you have difficulty dressing or bathing? Answer Date of Assessment Author Status No 07/30/2020 10:46 PM UTILIZATION REVIEW NURSE Nella Le RN Active * Because [...] Date Author Status No 07/30/2020 10:46 PM UTILIZATION REVIEW NURSE Nella Le RN Active documented in [...] Date Type Department Care Team (Late st [facility]) Description 09/25/2024 11:30 AM UTILIZATION REVIEW NURSE Appointment [facility] [address] [place] [address] Roberta Alex MD [address] [place] [address] 09/25/2024 11:40 AM UTILIZATION REVIEW NURSE Office Visit [facility] [place] [address] Roberta Alex MD [address] [place] [address] documented as of this encounter Visit Diagnoses [...] mL/hr documented in this encounter Care Teams Student Nurse Relationship Specialty Start Date End Date Alejandro Blevins MD PCP - General FAMILY PRACTICE 12/10/19 documented as of this encounter
--- OUTSIDE RECORDS SUMMARY | 2024-07-11 09:59 | XMS_ITS | Encounter Summary ---
Author Organization [facility] Address [address] [place] [address]. [place] [address] [place] [address] Care Team Providers Care Gun Sealing Machine Operator Name Role Phone Alejandro Blevins MD Primary Care Provider [phone] Encounter Details Date Type Department Care Team (Late st Contact Info) Description 12/30/[address] [place] [address] Tejinder Garcia, [facility] Social History Tobacco Use Types Packs/Day Years Used Date Smoking Tobacco: Former Smokeless Tobacco: Current Comments Yes Sex and Gender Information Value Date Recorded Sex Assigned at Not on file Legal Sex Female 11:30 PM MID LEVEL DEVELOPER Gender Identity Female 11/10/2021 3:09 PM [...] Assessment Author Status No 07/30/2020 10:48 PM MID LEVEL DEVELOPER Acti ve * RETIRED Are you blind or do you have serious difficulty seeing, even when wearing glasses? Answer Date of Assessment Author Status No 07/30/2020 10:46 PM MID LEVEL DEVELOPER Acti ve * Do you have serious difficulty walking or climbing stairs? Answer Date of Assessment Author Status No 07/30/2020 10:46 PM MID LEVEL DEVELOPER Nella Le RN Active * Do you have difficulty dressing or bathing? Answer Date of Assessment Author Status No 07/30/2020 10:46 PM MID LEVEL DEVELOPER Nella Le RN Active * Because [...] st Contact Info) Description 09/25/2024 11:30 AM MID LEVEL DEVELOPER Appointment [facility] [address] [place] [address] Roberta Alex MD [address] [place] [address] 09/25/2024 11:40 AM MID LEVEL DEVELOPER Office Visit [facility] [address] [place] [address] Roberta Alex MD [address] [place] [address] documented as of this encounter Results * VITAMIN B-12 (12/30/2020 4:52 PM CDT) VITAMIN B12 S/P/B 508 193 - 986 PG/ML 12/31/2020 3:36 PM CDT [facility] 12/30/2020 4:52 PM CDT Roberta Alex MD LABORATORY Final Result [facility] [address] [place] [address], [id number] * (ABNORMAL) FERRITIN (12/30/2020 4:52 PM CDT) FERRITIN 2.4(L) 8 - 252 NG/ML 12/30/2020 5:25 PM CDT [facility] 12/30/2020 4:52 PM CDT Roberta Alex MD LABORATORY Final Result Performing Organization Address City/[facility]/ZIP Co de Phone Number [facility] [address] [place] [address], [place] [phone] * (ABNORMAL) IRON SATURATION PNL (FE/TIBC/SAT) (12/30/2020 4:52 PM CDT) IRON 11(L) 50 - 170 MCG/DL 12/30/2020 5:16 PM CDT [facility] IRON BINDING CAPACITY 428 250 - 450 MCG/DL 12/30/2020 5:16 PM CDT [facility] IRON SATURATION 3 % 5:16 PM CDT [facility] Comment:REFERENCE RANGE NOT ESTABLISHED 12/30/2020 4:52 PM CDT Roberta Alex MD LABORATORY Final Result Performing Organization Address City/[facility] Co de Phone Number [facility] [address] [place] [phone], documented in this encounter Visit Diagnoses Diagnosis Iron deficiency anemia secondary to inadequate dietary iron intake- Primary documented in this encounter Care Teams Gun Sealing Machine Operator Relationship Specialty Start Date End Date Alejandro Blevins MD PCP - General FAMILY PRACTICE 12/10/19 documented as of this encounter
--- OUTSIDE RECORDS SUMMARY | 2024-07-11 09:59 | XMS_ITS | Encounter Summary ---
Author Organization [facility] Address [address] [place] [address]. [place] [address] [place] [address] Care Team Providers Care Faculty Administrator Name Role Phone Alejandro Blevins MD Primary Care Provider [phone] Reason for Visit * Reason Comments Infusion Therapy * Treatment/Therapy Plan Authorization (Routine) - Closed Specialty Diagnoses / Procedures Referred By Contac t Referred To Contact Diagnoses Iron deficiency anemia due to chronic blood loss Procedures Roberta Wood MD [address] [place] [address] Phone: tel: fax: [facility] [place] [place] [address] Phone: tel: Referral ID Status Reason Start Date Expiration Date Visits Re quested Visits Authorized [id number] Closed 12/31/2020 07/24/2021 1 1 Encounter Details Date Type Department Care Team (Latest Contact Info) Description 01/20/2021 1:30 PM CDT - 01/20/2021 11:59 PM CDT Hospital Encounter [facility] [place] [address] Roberta Alex MD [address] [place] [address] Infusion Therapy Discharge Disposition: Home or Self Care (Routine Discharge) Social History Tobacco Use Types Packs/Day Years Used Date Smoking Tobacco: Former Smokeless Tobacco: Current Comments Yes Sex and Gender Information Value Date Recorded Sex Assigned at Not on file Legal Sex Female 11:30 PM ASSET SPECIALIST Gender Identity Female 11/10/2021 3:09 PM [...] Author Status No 07/30/2020 10:48 PM ASSET SPECIALIST Acti ve * RETIRED Are you blind or do you have serious difficulty seeing, even when wearing glasses? Answer Date of Assessment Author Status No 07/30/2020 10:46 PM ASSET SPECIALIST Acti ve * Do you have serious difficulty walking or climbing stairs? Answer Date of Assessment Author Status No 07/30/2020 10:46 PM ASSET SPECIALIST Nella Le RN Active * Do you have difficulty dressing or bathing? Answer Date of Assessment Author Status No 07/30/2020 10:46 PM ASSET SPECIALIST Nella Le RN Active * Because [...] Author Status No 07/30/2020 10:46 PM ASSET SPECIALIST Nella Le RN Active documented in [...] Contact Info) Description 09/25/2024 11:30 AM ASSET SPECIALIST Appointment [facility] [address] [place] [address] Roberta Alex MD [address] [place] [address] 09/25/2024 11:40 AM ASSET SPECIALIST Office Visit [facility] [address] [place] [address] Roberta Alex MD [address] [place] [address] documented as of this encounter Visit Diagnoses [...] mL/hr documented in this encounter Care Teams Faculty Administrator Relationship Specialty Start Date End Date Alejandro Blevins MD PCP - General FAMILY PRACTICE 12/10/19 documented as of this encounter
--- OUTSIDE RECORDS SUMMARY | 2024-07-11 09:59 | XMS_ITS | Encounter Summary ---
Author Organization [facility] Address [address] [place] [address]. [place], [place] [address] [place] [address] Care Team Providers Care Psychiatrist Name Role Phone Alejandro Blevins MD Primary Care Provider [phone] Encounter Details Date Type Department Care Team (Latest Contact Info) Description 05/04/2021 Travel Social History Tobacco Use Types Packs/Day Years Used Date Smoking Tobacco: Former Smokeless Tobacco: Current Comments No Sex and Gender Information Value Date Recorded Sex Assigned at Not on file Legal Sex Female 11:30 PM SENIOR MECHANICAL PROJECT MANAGER Gender Identity Female 11/10/2021 3:09 [...] Author Status No 07/30/2020 10:48 PM SENIOR MECHANICAL PROJECT MANAGER Acti ve * RETIRED Are you blind or do you have serious difficulty seeing, even when wearing glasses? Answer Date of Assessment Author Status No 07/30/2020 10:46 PM SENIOR MECHANICAL PROJECT MANAGER Acti ve * Do you have serious difficulty walking or climbing stairs? Answer Date of Assessment Author Status No 07/30/2020 10:46 PM SENIOR MECHANICAL PROJECT MANAGER Nella Le RN Active * Do you have difficulty dressing or bathing? Answer Date of Assessment Author Status No 07/30/2020 10:46 PM SENIOR MECHANICAL PROJECT MANAGER Nella Le RN Active * Because [...] Contact Info) Description 09/25/2024 11:30 AM SENIOR MECHANICAL PROJECT MANAGER Appointment [place] [phone] [facility] [address] Roberta Alex MD [address] [place] [address] 09/25/2024 11:40 AM SENIOR MECHANICAL PROJECT MANAGER Office Visit [facility] [place] [address] Roberta Alex MD [address] [place] [address] documented as of this encounter Visit Diagnoses Not on filedocumented in this encounter Care Teams Psychiatrist Relationship Specialty Start Date End Date Alejandro Blevins MD PCP - General FAMILY PRACTICE 12/10/19 documented as of this encounter
--- OUTSIDE RECORDS SUMMARY | 2024-07-11 10:01 | XMS_ITS | Encounter Summary ---
Author Organization [facility] Address [address] [place] [address]. [place], [place] [address] [place] [address] Care Team Providers Care Multi Operation Machine Operator Name Role Phone Alejandro Blevins MD Primary Care Provider [phone] Encounter Details Date Type Department Care Team (Latest Contact Info) Description 08/27/2020 Travel Social History Tobacco Use Types Packs/Day Years Used Date Smoking Tobacco: Former Smokeless Tobacco: Current Comments Yes Sex and Gender Information Value Date Recorded Sex Assigned at Not on file Legal Sex Female 11:30 PM AERONAUTICAL PROJECT ENGINEER Gender Identity Female 11/10/2021 3:09 PM CDT Sexual Orientation Straight 11/10/2021 3: 09 PM CDT COVID-19 Exposure Response Date Recorded In the last month, have you been in contact with someone who was confirmed or suspected to have Coronavirus / COVID-19? No / Unsure 08/27/2020 2:51 PM AERONAUTICAL PROJECT ENGINEER documented as of this encounter Functional Status * RETIRED Are you deaf or do you have serious difficulty hearing Answer Date of Assessment Author Status No 07/30/2020 10:48 PM AERONAUTICAL PROJECT ENGINEER Acti ve * RETIRED Are you blind or do you have serious difficulty seeing, even when wearing glasses? Answer Date of Assessment Author Status No 07/30/2020 10:46 PM AERONAUTICAL PROJECT ENGINEER Acti ve * Do you have serious difficulty walking or climbing stairs? Answer Date of Assessment Author Status No 07/30/2020 10:46 PM AERONAUTICAL PROJECT ENGINEER Nella Le RN Active * Do you have difficulty dressing or bathing? Answer Date of Assessment Author Status No 07/30/2020 10:46 PM AERONAUTICAL PROJECT ENGINEER Nella Le RN Active * Because [...] st Contact Info) Description 09/25/2024 11:30 AM AERONAUTICAL PROJECT ENGINEER Appointment [place] [phone] [place] [address] Roberta Alex MD [address] [place] [address] 09/25/2024 11:40 AM AERONAUTICAL PROJECT ENGINEER Office Visit [facility] [place] [address] Roberta Alex MD [address] [place] [address] [phone] documented as of this encounter Visit Diagnoses Not on filedocumented in this encounter Care Teams Multi Operation Machine Operator Relationship Specialty Start Date End Date Alejandro Blevins MD PCP - General FAMILY PRACTICE 12/10/19 documented as of this encounter
--- OUTSIDE RECORDS SUMMARY | 2024-07-11 10:01 | XMS_ITS | Encounter Summary ---
Author Organization [facility] Address [address] [place] [address]. [place] [address] [place] [address] Care Team Providers Care Retort Pre Cooker Name Role Phone Alejandro Blevins MD Primary Care Provider [phone] Reason for Visit * Reason Comments Follow Up Lab Results Encounter Details Date Type Department Care Team (Late st Contact Info) Description 12/30/2020 3:40 PM CDT Office Visit [address] [place] [address] Roberta Alex MD [address] [place] [address] Follow Up; Lab Results Social History Tobacco Use Types Packs/Day Years Used Date Smoking Tobacco: Former Smokeless Tobacco: Current Comments Yes Sex and Gender Information Value Date Recorded Sex Assigned at Not on file Legal Sex Female 11:30 PM RN FIELD CASE MANAGER Gender Identity Female 11/10/2021 3:09 PM [...] Author Status No 07/30/2020 10:48 PM RN FIELD CASE MANAGER Acti ve * RETIRED Are you blind or do you have serious difficulty seeing, even when wearing glasses? 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 Dick Bonilla 5 years ago. - [...] anti viral treatment for Hepatitis C by [facility] hepatology team. -Again slow decline to 49K [...] looking to establish care with new OB- DATA MANAGEMENT ENGINEER as she was fired from her previous practice. REVIEW OF SYSTEMS CONST: No fevers or chills. Worsening fatigue. ENT: No difficulty swallowing. RESP: No shortness of breath. CV: No chest pain. : No urinary symptoms or frequency. DATA MANAGEMENT ENGINEER: Heavy menstrual cycles. MSK: No new joint [...] Gatherings with Friends and Family: ??? Attends Voodoo Services: ??? Active Member of Clubs or [...] in the process of finding a new OB-DATA MANAGEMENT ENGINEER to provide her care. She is interested [...] hepatitis C antiviral treatment and follows with [facility] hepatology team. 6. Polysubstance abuse, IV drug abuse: The patient has quit recreational drugs. 7. RTC in 2 to 3 months with repeat blood tests. Roberta Alex MD CC: Alejandro Blevins MD documented in this encounter Plan of Treatment Upcoming Encounters Date Type Department Care Team (Late st Contact Info) Description 09/25/2024 11:30 AM RN FIELD CASE MANAGER Appointment [facility] [address] [place] [address] Roberta Alex MD [address] [place] [address] 09/25/2024 11:40 AM RN FIELD CASE MANAGER Office Visit [facility] [address] [place] [address] Roberta Alex MD [address] [place] [address] documented as of this encounter Visit Diagnoses Diagnosis Thrombocytopenia (CMS/HCC)- Primary Thrombocytopenia, unspecified Iron deficiency anemia due to chronic blood loss Iron deficiency anemia secondary to blood loss (chronic) Anti-cardiolipin antibody positive Other and unspecified nonspecific immunological findings documented in this encounter Care Teams Retort Pre Cooker Relationship Specialty Start Date End Date Alejandro Blevins MD PCP - General FAMILY PRACTICE 12/10/19 documented as of this encounter
--- OUTSIDE RECORDS SUMMARY | 2024-07-11 10:01 | XMS_ITS | Encounter Summary ---
Author Organization [facility] Address [address] [place] [address]. [place], [place] [address] [place] [address] Care Team Providers Care Extractor Tender Raw Stock Name Role Phone Alejandro Blevins MD Primary Care Provider [phone] Encounter Details Date Type Department Care Team (Latest Contact Info) Description 09/26/2020 Travel Social History Tobacco Use Types Packs/Day Years Used Date Smoking Tobacco: Former Smokeless Tobacco: Current Comments Yes Sex and Gender Information Value Date Recorded Sex Assigned at Not on file Legal Sex Female 11:30 PM CIGAR WRAPPER TENDER AUTOMATIC Gender Identity Female 11/10/2021 3:09 PM CDT Sexual Orientation Straight 11/10/2021 3: 09 PM CDT COVID-19 Exposure Response Date Recorded In the last month, have you been in contact with someone who was confirmed or suspected to have Coronavirus / COVID-19? No / Unsure 09/26/2020 1:05 PM CIGAR WRAPPER TENDER AUTOMATIC documented as of this encounter Functional Status * RETIRED Are you deaf or do you have serious difficulty hearing Answer Date of Assessment Author Status No 07/30/2020 10:48 PM CIGAR WRAPPER TENDER AUTOMATIC Acti ve * RETIRED Are you blind or do you have serious difficulty seeing, even when wearing glasses? Answer Date of Assessment Author Status No 07/30/2020 10:46 PM CIGAR WRAPPER TENDER AUTOMATIC Acti ve * Do you have serious difficulty walking or climbing stairs? Answer Date of Assessment Author Status No 07/30/2020 10:46 PM CIGAR WRAPPER TENDER AUTOMATIC Nella Le RN Active * Do you have difficulty dressing or bathing? Answer Date of Assessment Author Status No 07/30/2020 10:46 PM CIGAR WRAPPER TENDER AUTOMATIC Nella Le RN Active * Because of [...] st Contact Info) Description 09/25/2024 11:30 AM CIGAR WRAPPER TENDER AUTOMATIC Appointment [place] [id number] [facility] [address] Roberta Alex MD [address] [place] [address] 09/25/2024 11:40 AM CIGAR WRAPPER TENDER AUTOMATIC Office Visit [facility] [place] [address] Roberta Alex MD [address] [place] [address] [id number] documented as of this encounter Visit Diagnoses Not on filedocumented in this encounter Care Teams Extractor Tender Raw Stock Relationship Specialty Start Date End Date Alejandro Blevins MD PCP - General FAMILY PRACTICE 12/10/19 documented as of this encounter
--- OUTSIDE RECORDS SUMMARY | 2024-07-11 10:01 | XMS_ITS | Encounter Summary ---
Author Organization [facility] Address [address] [place] [address]. [place], [place] [address] [place] [address] Care Team Providers Care Horse Racer Name Role Phone Alejandro Blevins MD Primary Care Provider [phone] Encounter Details Date Type Department Care Team (Latest Contact Info) Description 08/26/2020 Travel Social History Tobacco Use Types Packs/Day Years Used Date Smoking Tobacco: Former Smokeless Tobacco: Current Comments Yes Sex and Gender Information Value Date Recorded Sex Assigned at Not on file Legal Sex Female 11:30 PM SPRAY MACHINE LOADER Gender Identity Female 11/10/2021 3:09 PM CDT Sexual Orientation Straight 11/10/2021 3: 09 PM CDT COVID-19 Exposure Response Date Recorded In the last month, have you been in contact with someone who was confirmed or suspected to have Coronavirus / COVID-19? No / Unsure 08/26/2020 9:23 AM SPRAY MACHINE LOADER documented as of this encounter Functional Status * RETIRED Are you deaf or do you have serious difficulty hearing Answer Date of Assessment Author Status No 07/30/2020 10:48 PM SPRAY MACHINE LOADER Acti ve * RETIRED Are you blind or do you have serious difficulty seeing, even when wearing glasses? Answer Date of Assessment Author Status No 07/30/2020 10:46 PM SPRAY MACHINE LOADER Acti ve * Do you have serious difficulty walking or climbing stairs? Answer Date of Assessment Author Status No 07/30/2020 10:46 PM SPRAY MACHINE LOADER Nella Le RN Active * Do you have difficulty dressing or bathing? Answer Date of Assessment Author Status No 07/30/2020 10:46 PM SPRAY MACHINE LOADER Nella Le RN Active * Because of [...] st Contact Info) Description 09/25/2024 11:30 AM SPRAY MACHINE LOADER Appointment [place] [id number] [facility] [place] [address] Roberta Alex MD [address] [place] [address] 09/25/2024 11:40 AM SPRAY MACHINE LOADER Office Visit [facility] [place] [address] Roberta Alex MD [address] [place] [id number] documented as of this encounter Visit Diagnoses Not on filedocumented in this encounter Care Teams Horse Racer Relationship Specialty Start Date End Date Alejandro Blevins MD PCP - General FAMILY PRACTICE 12/10/19 documented as of this encounter
--- OUTSIDE RECORDS SUMMARY | 2024-07-11 10:01 | XMS_ITS | Encounter Summary ---
Author Organization [facility] Address [address] [place] [address]. [place] [address] [place] [address] Care Team Providers Care Twist Packer Name Role Phone Alejandro Blevins MD Primary Care Provider [phone] Encounter Details Date Type Department Care Team (Late st Contact Info) Description 08/06/2020 Orders Only [address] [place] [address] Kitty Elizondo RN Social History Tobacco Use Types Packs/Day Years Used Date Smoking Tobacco: Former Smokeless Tobacco: Current Comments Yes Sex and Gender Information Value Date Recorded Sex Assigned at Not on file Legal Sex Female 11:30 PM SCANNING MANAGER Gender Identity Female 11/10/2021 3:09 PM CDT Sexual Orientation Straight 11/10/2021 3: 09 PM CDT COVID-19 Exposure Response Date Recorded In the last month, have you been in contact with someone who was confirmed or suspected to have Coronavirus / COVID-19? No / Unsure 08/07/2020 8:30 AM SCANNING MANAGER documented as of this encounter Functional Status * RETIRED Are you deaf or do you have serious difficulty hearing Answer Date of Assessment Author Status No 07/30/2020 10:48 PM SCANNING MANAGER Acti ve * RETIRED Are you blind or do you have serious difficulty seeing, even when wearing glasses? Answer Date of Assessment Author Status No 07/30/2020 10:46 PM SCANNING MANAGER Acti ve * Do you have serious difficulty walking or climbing stairs? Answer Date of Assessment Author Status No 07/30/2020 10:46 PM SCANNING MANAGER Nella Le RN Active * Do [...] st Contact Info) Description 09/25/2024 11:30 AM SCANNING MANAGER Appointment [facility] [address] [address] Roberta Alex MD [address] [place] [address] 09/25/2024 11:40 AM SCANNING MANAGER Office Visit [facility] [address] [place] [address] Roberta Alex MD [address] [place] [address] documented as of this encounter Results * (ABNORMAL) CBC W/DIFF AUTOMATED (08/07/2020 8:38 AM SCANNING MANAGER) WBC 10.5 4.5 - 10.8 x10'3/uL 08/07/2020 8:45 AM SCANNING MANAGER [facility] RBC 4.67 4.10 - 5.40 x10'6/uL 08/07/2020 8:45 AM SCANNING MANAGER [facility] HGB 12.9 12.0 - 16.0 G/DL 08/07/2020 8:45 AM SCANNING MANAGER [facility] HCT 41.5 36.0 - 47.0 % 08/07/2020 8:45 AM SCANNING MANAGER [facility] MCV 88.9 78.0 - 100.0 FL 08/07/2020 8:45 AM [facility] MCH 27.6 27.0 - 31.0 PG 08/07/2020 8:45 AM [facility] MCHC 31.1(L) 33.0 - 36.0 G/DL 08/07/2020 8:45 AM [facility] RDW 13.8 11.5 - 14.5 % 08/07/2020 8:45 AM [facility] PLT 289 150 - 350 x10'3/uL 08/07/2020 8:45 AM [facility] MPV 11.0(H) 7.4 - 10.4 FL 08/07/2020 8:45 AM [facility] DIFFERENTIAL COMMENT NORMAL REFERENCE RANGE NOT ESTABLISHED FOR THE PROPORTIONAL LEUKOCYTE DIFFERENTIAL. 08/07/2020 8:45 AM [facility] SEG NEUTROPHILS 71.7 % 8:45 AM [facility] LYMPHOCYTES 22.4 % 08/07/2020 8:45 AM [facility] MONOCYTES 5.1 % 08/07/2020 8:45 AM [facility] EOSINOPHILS 0.4 % 08/07/2020 8:45 AM [facility] BASOPHILS 0.2 % 08/07/2020 8:45 AM [facility] IMMATURE GRANS % 0.2 % 08/07/19 8:45 AM [facility] NRBC 0.0 % 08/07/2020 8:45 AM [facility] ABS. NEUTROPHILS 7.54 1.60 - 8.30 x10'3/uL 08/07/2020 8:45 AM [facility] ABS. LYMPHOCYTES 2.36 0.80 - 4.70 x10'3/uL 08/07/2020 8:45 AM [facility] ABS. MONOCYTES 0.54 0.00 - 1.50 x10'3/uL 08/07/2020 8:45 AM [facility] ABS. EOSINOPHILS 0.04 0.00 - 0.40 x10'3/uL 08/07/2020 8:45 AM SCANNING MANAGER [facility] ABS. BASOPHILS 0.02 0.00 - 0.20 x10'3/uL 08/07/2020 8:45 AM SCANNING MANAGER [facility] ABS. IMMATURE GRANULOCYTES 0.02 0.00 - 0.03 x10'3/uL 08/07/2020 8:45 AM SCANNING MANAGER [facility] ABS. NUCLEATED RBC'S 0.00 0.00 x10'3/uL 08/07/2020 8:45 AM SCANNING MANAGER [facility] 08/07/2020 8:38 AM SCANNING MANAGER Roberta Alex MD LABORATORY Final Result [facility] [address] [place] [address], documented in this encounter Visit Diagnoses Diagnosis Chronic ITP (idiopathic thrombocytopenia) (CMS/HCC [facility])- Primary Immune thrombocytopenic purpura documented in this encounter Care Teams Twist Packer Relationship Specialty Start Date End Date Alejandro Blevins MD PCP - General FAMILY PRACTICE 12/10/19 documented as of this encounter
--- OUTSIDE RECORDS SUMMARY | 2024-07-11 10:01 | XMS_ITS | Encounter Summary ---
Author Organization [facility] Address [facility] [facility] [place] [address] [place] [address] Care Team Providers Care Ob Nurse Name Role Phone Alejandro Blevins MD Primary Care Provider [phone] Encounter Details Date Type Department Care Team (Latest Contact Info) Description 09/09/2020 10:35 AM INJECTION MOULDING MACHINE OPERATOR - 09/09/2020 11:09 AM INJECTION MOULDING MACHINE OPERATOR Hospital Encounter [address] [place] [address] Roberta Alex MD [address] [place] [address] Discharge Disposition: Home or Self Care (Routine Discharge) Social History Tobacco Use Types Packs/Day Years Used Date Smoking Tobacco: Former Smokeless Tobacco: Current Comments Yes Sex and Gender Information Value Date Recorded Sex Assigned at Not on file Legal Sex Female 11:30 PM INJECTION MOULDING MACHINE OPERATOR Gender Identity Female 11/10/2021 3:09 PM CDT Sexual Orientation Straight 11/10/2021 3: 09 PM CDT COVID-19 Exposure Response Date Recorded In the last month, have you been in contact with someone who was confirmed or suspected to have Coronavirus / COVID-19? No / Unsure 09/09/2020 11:08 AM INJECTION MOULDING MACHINE OPERATOR documented as of this encounter Functional Status * RETIRED Are you deaf or do you have serious difficulty hearing Answer Date of Assessment Author Status No 07/30/2020 10:48 PM INJECTION MOULDING MACHINE OPERATOR Acti ve * RETIRED Are you blind or do you have serious difficulty seeing, even when wearing glasses? Answer Date of Assessment Author Status No 07/30/2020 10:46 PM INJECTION MOULDING MACHINE OPERATOR Acti ve * Do you [...] 10 mg tabletIndications :Chronic ITP (idiopathic thrombocytopenia) ([facility]) Take 5 tablets (50 mg total) [...] st Contact Info) Description 09/25/2024 11:30 AM INJECTION MOULDING MACHINE OPERATOR Appointment [facility] [address] [place] [address] Roberta Alex MD [address] [place] [address] 09/25/2024 11:40 AM INJECTION MOULDING MACHINE OPERATOR Office Visit [facility] [facility] [place] [address] Roberta Alex MD [address] [place] [address] documented as of this encounter Procedures Procedure Name Priority Date/Time Associated Diagnosis Comments CBC W/DIFF AUTOMATED Routine 09/09/2020 11:21 AM INJECTION MOULDING MACHINE OPERATOR Chronic ITP (idiopathic thrombocytopenia) ([facility]/HCC) Anemia documented in this encounter Results * (ABNORMAL) CBC W/DIFF AUTOMATED (09/09/2020 11:21 AM INJECTION MOULDING MACHINE OPERATOR) WBC 11.1(H) 4.5 - 10.8 x10'3/uL 09/09/2020 11:38 AM [facility] RBC 3.64(L) 4.10 - 5.40 x10'6/uL 09/09/2020 11:38 AM [facility] HGB 10.0(L) 12.0 - 16.0 G/DL 09/09/2020 11:38 AM [facility] HCT 32.1(L) 36.0 - 47.0 % 09/09/2020 11:38 AM [facility] MCV 88.2 78.0 - 100.0 FL 09/09/2020 11:38 AM [facility] MCH 27.5 27.0 - 31.0 PG 09/09/2020 11:38 AM [facility] MCHC 31.2(L) 33.0 - 36.0 G/DL 09/09/2020 11:38 AM [facility] RDW 14.0 11.5 - 14.5 % 09/09/2020 11:38 AM [facility] PLT 165 150 - 350 x10'3/uL 09/09/2020 11:38 AM [facility] MPV 12.0(H) 7.4 - 10.4 FL 09/09/2020 11:38 AM [facility] DIFFERENTIAL COMMENT NORMAL REFERENCE RANGE NOT ESTABLISHED FOR THE PROPORTIONAL LEUKOCYTE DIFFERENTIAL. 09/09/2020 11:38 AM [facility] SEG NEUTROPHILS 67.2 % 11:38 AM [facility] LYMPHOCYTES 26.0 % 09/09/2020 11:38 AM [facility] MONOCYTES 4.2 % 09/09/2020 11:38 AM [facility] EOSINOPHILS 1.8 % 09/09/2020 11:38 AM [facility] BASOPHILS 0.4 % 09/09/2020 11:38 AM [facility] IMMATURE GRANS % 0.4 % 09/09/19 11:38 AM [facility] NRBC 0.0 % 09/09/2020 11:38 AM [facility] ABS. NEUTROPHILS 7.49 1.60 - 8.30 x10'3/uL 09/09/2020 11:38 AM [facility] ABS. LYMPHOCYTES 2.90 0.80 - 4.70 x10'3/uL 09/09/2020 11:38 AM [facility] ABS. MONOCYTES 0.47 0.00 - 1.50 x10'3/uL 09/09/2020 11:38 AM [facility] ABS. EOSINOPHILS 0.20 0.00 - 0.40 x10'3/uL 09/09/2020 11:38 AM [facility] ABS. BASOPHILS 0.04 0.00 - 0.20 x10'3/uL 09/09/2020 11:38 AM [facility] ABS. IMMATURE GRANULOCYTES 0.04(H) 0.00 - 0.03 x10'3/uL 09/09/2020 11:38 AM [facility] ABS. NUCLEATED RBC'S 0.00 0.00 x10'3/uL 09/09/2020 11:38 AM [facility] 09/09/2020 11:2 1 AM INJECTION MOULDING MACHINE OPERATOR us Roberta Alex MD LABORATORY Final Result [facility] [address] [place] [address], documented in this encounter Visit Diagnoses Diagnosis Chronic ITP (idiopathic thrombocytopenia) (CMS/HCC [facility]/HCC) Immune thrombocytopenic purpura Anemia Anemia, unspecified documented in this encounter Care Teams Ob Nurse Relationship Specialty Start Date End Date Alejandro Blevins MD PCP - General FAMILY PRACTICE 12/10/19 documented as of this encounter
--- OUTSIDE RECORDS SUMMARY | 2024-07-11 10:01 | XMS_ITS | Encounter Summary ---
Author Organization [facility] Address [address] [place] [address]. [place] [address] [place] [address] Care Team Providers Care Business Systems Analyst Name Role Phone Alejandro Blevins MD Primary Care Provider [phone] Reason for Visit * Reason Comments Follow Up Encounter Details Date Type Department Care Team (Late st Contact Info) Description 09/09/2020 10:40 AM TIME STUDY ENGINEER Office Visit [address] [place] [address] Roberta Alex MD [address] [place] [address] Follow Up Social History Tobacco Use Types Packs/Day Years Used Date Smoking Tobacco: Former Smokeless Tobacco: Current Comments Yes Sex and Gender Information Value Date Recorded Sex Assigned at Not on file Legal Sex Female 11:30 PM TIME STUDY ENGINEER Gender Identity Female 11/10/2021 3:09 PM CDT Sexual Orientation Straight 11/10/2021 3: 09 PM CDT COVID-19 Exposure Response Date Recorded In the last month, have you been in contact with someone who was confirmed or suspected to have Coronavirus / COVID-19? No / Unsure 09/09/2020 11:08 AM TIME STUDY ENGINEER documented as of this encounter Last Filed Vital Signs Vital Sign Reading Time Taken Comments Blood Pressure 109/69 09/09/2020 11:29 AM TIME STUDY ENGINEER Pulse 83 09/09/2020 11:29 AM TIME STUDY ENGINEER Temperature 36.2 ??C (97.2 ??F) 09/09/2020 11:[address] Respiratory Rate 18 09/09/2020 11:29 AM TIME STUDY ENGINEER Oxygen Saturation - - Inhaled Oxygen Concentration - - Weight 64.2 kg (141 lb 8.6 oz) 09/09/2020 11:29 AM TIME STUDY ENGINEER Height 165.1 cm (5' 5 ) 09/09/2020 11:29 AM TIME STUDY ENGINEER Body Mass Index 23.55 09/09/2020 11:29 AM TIME STUDY ENGINEER documented in this encounter Functional Status * RETIRED Are you deaf or do you have serious difficulty hearing Answer Date of Assessment Author Status No 07/30/2020 10:48 PM TIME STUDY ENGINEER Acti ve * RETIRED Are you blind or do you have serious difficulty seeing, even when wearing glasses? Answer Date of Assessment Author Status No 07/30/2020 10:46 PM TIME STUDY ENGINEER Acti ve * Do you have serious difficulty walking or climbing stairs? Answer Date of Assessment Author Status No 07/30/2020 10:46 PM TIME STUDY ENGINEER Nella Le RN Active * Do you have difficulty dressing or bathing? Answer Date of Assessment Author Status No 07/30/2020 10:46 PM TIME STUDY ENGINEER Nella Le RN Active * Because of a physical, mental, or emotional condition, do you have difficulty doing errands alone such as visiting a doctor's office or shopping? Answer Date of Assessment Author Status No 07/30/2020 10:46 PM TIME STUDY ENGINEER Nella Le RN Active documented as [...] coming off of her heavy menstrual cycle. [place] tired and weak for the first 2 days- when it was heavy, now she is minimally spotting. Hematology history: 1. ITP: Previously followed with [facility] neck fitter Dr. Dick Bonilla 5 years ago. - [...] file Gets together: Not on file Attends druze service: Not on file Active member of [...] on HCV antiviral treatment and follows with [facility] hepatology team. Anticipating improvement in ITP [...] Roberta Alex MD CC: Alejandro Blevins MD STUDY ENGINEER documented in this encounter Plan of Treatment Upcoming Encounters Date Type Department Care Team (Late st Contact Info) Description 09/25/2024 11:30 AM TIME STUDY ENGINEER Appointment [facility] [address] [place] [address] Roberta Alex MD [address] [place] [address] 09/25/2024 11:40 AM TIME STUDY ENGINEER Office Visit [facility] [address] [place] [address] Roberta Alex MD [address] [place] [address] documented as of this encounter Visit Diagnoses Diagnosis Thrombocytopenia (CMS/HCC)- Primary Thrombocytopenia, unspecified Chronic ITP (idiopathic thrombocytopenia) (CMS/HCC HHS/HCC) Immune thrombocytopenic purpura Iron deficiency anemia secondary to inadequate dietary iron intake Chronic hepatitis C without hepatic coma (CMS/HCC HHS/HCC) documented in this encounter Care Teams Business Systems Analyst Relationship Specialty Start Date End Date Aljeandro Blevins MD PCP - General FAMILY PRACTICE 12/10/19 documented as of this encounter
--- OUTSIDE RECORDS SUMMARY | 2024-07-11 10:01 | XMS_ITS | Encounter Summary ---
Author Organization [facility] Address [address] [place] [address]. [place] [address] [place] [address] Care Team Providers Care Maintenance Person Name Role Phone Alejandro Blevins MD Primary Care Provider [phone] Encounter Details Date Type Department Care Team (Latest Contact Info) Description 08/07/2020 8:31 AM CENTRIFUGAL EXTRACTOR OPERATOR - 08/07/2020 11:59 PM CENTRIFUGAL EXTRACTOR OPERATOR Hospital Encounter [address] [place] [address] Roberta Alex MD [address] [place] [address] Discharge Disposition: Home or Self Care (Routine Discharge) Social History Tobacco Use Types Packs/Day Years Used Date Smoking Tobacco: Former Smokeless Tobacco: Current Comments Yes Sex and Gender Information Value Date Recorded Sex Assigned at Not on file Legal Sex Female 11:30 PM CENTRIFUGAL EXTRACTOR OPERATOR Gender Identity Female 11/10/2021 3:09 PM CDT Sexual Orientation Straight 11/10/2021 3: 09 PM CDT COVID-19 Exposure Response Date Recorded In the last month, have you been in contact with someone who was confirmed or suspected to have Coronavirus / COVID-19? No / Unsure 08/07/2020 8:30 AM CENTRIFUGAL EXTRACTOR OPERATOR documented as of this encounter Functional Status * RETIRED Are you deaf or do you have serious difficulty hearing Answer Date of Assessment Author Status No 07/30/2020 10:48 PM CENTRIFUGAL EXTRACTOR OPERATOR Acti ve * RETIRED Are you blind or do you have serious difficulty seeing, even when wearing glasses? Answer Date of Assessment Author Status No 07/30/2020 10:46 PM CENTRIFUGAL EXTRACTOR OPERATOR Acti ve * Do you have [...] st Contact Info) Description 09/25/2024 11:30 AM CENTRIFUGAL EXTRACTOR OPERATOR Appointment [facility] [address] [place] [address] Roberta Alex MD [address] [place] [address] 09/25/2024 11:40 AM CENTRIFUGAL EXTRACTOR OPERATOR Office Visit [facility] [address] [place] [address] Roberta Alex MD [address] [place] [address] documented as of this encounter Procedures Procedure Name Priority Date/Time Associated Diagnosis Comments CBC W/DIFF AUTOMATED Routine 08/07/2020 8:38 AM CENTRIFUGAL EXTRACTOR OPERATOR Chronic ITP (idiopathic thrombocytopenia) ([facility]/HCC [facility]) documented in this encounter Results * (ABNORMAL) CBC W/DIFF AUTOMATED (08/07/2020 8:38 AM CENTRIFUGAL EXTRACTOR OPERATOR) WBC 10.5 4.5 - 10.8 x10'3/uL 08/07/2020 8:45 AM [facility] RBC 4.67 4.10 - 5.40 x10'6/uL 08/07/2020 8:45 AM [facility] HGB 12.9 12.0 - 16.0 G/DL 08/07/2020 8:45 AM [facility] HCT 41.5 36.0 - 47.0 % 08/07/2020 8:45 AM [facility] MCV 88.9 78.0 - 100.0 FL 08/07/2020 8:45 AM [facility] MCH 27.6 27.0 - 31.0 PG 08/07/2020 8:45 AM [facility] MCHC 31.1(L) 33.0 - 36.0 G/DL 08/07/2020 8:45 AM [facility] RDW 13.8 11.5 - 14.5 % 08/07/2020 8:45 AM [facility] PLT 289 150 - 350 x10'3/uL 08/07/2020 8:45 AM [facility] MPV 11.0(H) 7.4 - 10.4 FL 08/07/2020 8:45 AM [facility] DIFFERENTIAL COMMENT NORMAL REFERENCE RANGE NOT ESTABLISHED FOR THE PROPORTIONAL LEUKOCYTE DIFFERENTIAL. 08/07/2020 8:45 AM [facility] SEG NEUTROPHILS 71.7 % 8:45 AM [facility] LYMPHOCYTES 22.4 % 08/07/2020 8:45 AM [facility] MONOCYTES 5.1 % 08/07/2020 8:45 AM [facility] EOSINOPHILS 0.4 % 08/07/2020 8:45 AM [facility] BASOPHILS 0.2 % 08/07/2020 8:45 AM [facility] IMMATURE GRANS % 0.2 % 08/07/19 21 8:45 AM CENTRIFUGAL EXTRACTOR OPERATOR [facility] NRBC 0.0 % 08/07/2020 8:45 AM CENTRIFUGAL EXTRACTOR OPERATOR [facility] ABS. NEUTROPHILS 7.54 1.60 - 8.30 x10'3/uL 08/07/2020 8:45 AM CENTRIFUGAL EXTRACTOR OPERATOR [facility] ABS. LYMPHOCYTES 2.36 0.80 - 4.70 x10'3/uL 08/07/2020 8:45 AM CENTRIFUGAL EXTRACTOR OPERATOR [facility] ABS. MONOCYTES 0.54 0.00 - 1.50 x10'3/uL 08/07/2020 8:45 AM CENTRIFUGAL EXTRACTOR OPERATOR [facility] ABS. EOSINOPHILS 0.04 0.00 - 0.40 x10'3/uL 08/07/2020 8:45 AM CENTRIFUGAL EXTRACTOR OPERATOR [facility] ABS. BASOPHILS 0.02 0.00 - 0.20 x10'3/uL 08/07/2020 8:45 AM CENTRIFUGAL EXTRACTOR OPERATOR [facility] ABS. IMMATURE GRANULOCYTES 0.02 0.00 - 0.03 x10'3/uL 08/07/2020 8:45 AM CENTRIFUGAL EXTRACTOR OPERATOR [facility] ABS. NUCLEATED RBC'S 0.00 0.00 x10'3/uL 08/07/2020 8:45 AM [facility] 08/07/2020 8:38 AM CENTRIFUGAL EXTRACTOR OPERATOR Roberta Alex MD LABORATORY Final Result [facility] [address] [phone] documented in this encounter Visit Diagnoses Diagnosis Chronic ITP (idiopathic thrombocytopenia) (CMS/HCC [facility]/HCC) Immune thrombocytopenic purpura documented in this encounter Care Teams Maintenance Person Relationship Specialty Start Date End Date Alejandro Blevins MD PCP - General FAMILY PRACTICE 12/10/19 documented as of this encounter
--- OUTSIDE RECORDS SUMMARY | 2024-07-11 10:01 | XMS_ITS | Encounter Summary ---
Author Organization [facility] Address [address] [place] [address]. [place] [address] [place] [address] Care Team Providers Care Cad Programmer Name Role Phone Alejandro Blevins MD Primary Care Provider [phone] Reason for Visit * Reason Comments Follow Up Lab Results Encounter Details Date Type Department Care Team (Late st Contact Info) Description 07/29/2020 10:40 AM CORRESPONDENCE COORDINATOR Office Visit [address] [place] [address] Roberta Alex MD [address] [place] [address] Follow Up; Lab Results Social History Tobacco Use Types Packs/Day Years Used Date Smoking Tobacco: Every Day Smokeless Tobacco: Never Comments Yes Sex and Gender Information Value Date Recorded Sex Assigned at Not on file Legal Sex Female 11:30 PM CORRESPONDENCE COORDINATOR Gender Identity Female 11/10/2021 3:09 PM CDT Sexual Orientation Straight 11/10/2021 3: 09 PM CDT COVID-19 Exposure Response Date Recorded In the last month, have you been in contact with someone who was confirmed or suspected to have Coronavirus / COVID-19? No / Unsure 07/30/2020 1:19 PM CORRESPONDENCE COORDINATOR documented as of this encounter Last Filed Vital Signs Vital Sign Reading Time Taken Comments Blood Pressure 105/68 07/29/2020 10:48 AM CORRESPONDENCE COORDINATOR Pulse 91 07/29/2020 10:48 AM CORRESPONDENCE COORDINATOR Temperature 36.8 ??C (98.2 ??F) 07/29/2020 10:[address] Respiratory Rate 18 07/29/2020 10:48 AM CORRESPONDENCE COORDINATOR Oxygen Saturation - - Inhaled Oxygen Concentration - - Weight 59.7 kg (131 lb 9.8 oz) 07/29/2020 10:48 AM CORRESPONDENCE COORDINATOR Height 165.1 cm (5' 5 ) 07/29/2020 10:48 AM CORRESPONDENCE COORDINATOR Body Mass Index 21.9 07/29/2020 10:48 AM CORRESPONDENCE COORDINATOR documented in this encounter Progress Notes * [...] deficiency since 11/2019. Initially established care with md when she was with twins at 20 weeks gestation and had no care. 1. ITP: - Regarding prev history: Followed with [facility] medical practice administrator Dr. Dick Bonilla 5 years ago. - [...] on HCV antiviral treatment and follows with [facility] hepatology team. 4. Polysubstance abuse, IVDA, [...] Roberta Alex MD CC: Alejandro Blevins MD ESPONDENCE COORDINATOR documented in this encounter Plan of Treatment Upcoming Encounters Date Type Department Care Team (Late st Contact Info) Description 09/25/2024 11:30 AM CORRESPONDENCE COORDINATOR Appointment [facility] [address] [place] [address] Roberta Alex MD [address] [place], [place] [id number] 09/25/2024 11:40 AM CORRESPONDENCE COORDINATOR Office Visit [address] [place] [address] Roberta Alex MD [address] [place] [id number] documented as of this encounter Visit Diagnoses Diagnosis Thrombocytopenia (CMS/HCC)- Primary Thrombocytopenia, unspecified Iron deficiency anemia secondary to inadequate dietary iron intake Chronic ITP (idiopathic thrombocytopenia) (CMS/HCC [facility]/HCC) Immune thrombocytopenic purpura Other dietary vitamin B12 deficiency anemia Anti-cardiolipin antibody positive Other and unspecified nonspecific immunological findings documented in this encounter Care Teams Cad Programmer Relationship Specialty Start Date End Date Alejandro Blevins MD PCP - General FAMILY PRACTICE 12/10/19 documented as of this encounter
--- OUTSIDE RECORDS SUMMARY | 2024-07-11 10:01 | XMS_ITS | Encounter Summary ---
Author Organization [facility] Address [facility] [place] [address] [place] [address] Care Team Providers Care Tutoring Manager Name Role Phone Alejandro Blevins MD Primary Care Provider [phone] Encounter Details Date Type Department Care Team (Latest Contact Info) Description 08/12/2020 3:35 PM FLIGHT RESERVATIONS MANAGER - 08/12/2020 11:59 PM FLIGHT RESERVATIONS MANAGER Hospital Encounter [address] [place] [address] Roberta Alex MD [address] [place] [address] Discharge Disposition: Home or Self Care (Routine Discharge) Social History Tobacco Use Types Packs/Day Years Used Date Smoking Tobacco: Former Smokeless Tobacco: Current Comments Yes Sex and Gender Information Value Date Recorded Sex Assigned at Not on file Legal Sex Female 11:30 PM FLIGHT RESERVATIONS MANAGER Gender Identity Female 11/10/2021 3:09 PM CDT Sexual Orientation Straight 11/10/2021 3: 09 PM CDT COVID-19 Exposure Response Date Recorded In the last month, have you been in contact with someone who was confirmed or suspected to have Coronavirus / COVID-19? No / Unsure 08/12/2020 3:39 PM FLIGHT RESERVATIONS MANAGER documented as of this encounter Functional Status * RETIRED Are you deaf or do you have serious difficulty hearing Answer Date of Assessment Author Status No 07/30/2020 10:48 PM FLIGHT RESERVATIONS MANAGER Acti ve * RETIRED Are you blind or do you have serious difficulty seeing, even when wearing glasses? Answer Date of Assessment Author Status No 07/30/2020 10:46 PM FLIGHT RESERVATIONS MANAGER Acti ve * Do you have [...] mg tabletIndications :Chronic ITP (idiopathic thrombocytopenia) ([facility]) Take 5 tablets (50 mg total) by [...] Contact Info) Description 09/25/2024 11:30 AM FLIGHT RESERVATIONS MANAGER Appointment [facility] [address] [place] [address] Roberta Alex MD [address] [place] [address] 09/25/2024 11:40 AM FLIGHT RESERVATIONS MANAGER Office Visit [facility] [address] [place] [address] [place] [address] Roberta Alex MD [address] [place] [address] documented as of this encounter Procedures Procedure Name Priority Date/Time Associated Diagnosis Comments CBC W/DIFF AUTOMATED Routine 08/12/2020 3:48 PM FLIGHT RESERVATIONS MANAGER Chronic ITP (idiopathic thrombocytopenia) ([facility]/HCC [facility]/HCC) Anemia documented in this encounter Results * (ABNORMAL) CBC W/DIFF AUTOMATED (08/12/2020 3:48 PM FLIGHT RESERVATIONS MANAGER) WBC 7.4 4.5 - 10.8 x10'3/uL 08/12/2020 3:57 PM FLIGHT RESERVATIONS MANAGER [facility] RBC 4.81 4.10 - 5.40 x10'6/uL 08/12/2020 3:57 PM FLIGHT RESERVATIONS MANAGER [facility] HGB 13.4 12.0 - 16.0 G/DL 08/12/2020 3:57 PM FLIGHT RESERVATIONS MANAGER [facility] HCT 42.9 36.0 - 47.0 % 08/12/2020 3:57 PM FLIGHT RESERVATIONS MANAGER [facility] MCV 89.2 78.0 - 100.0 FL 08/12/2020 3:57 PM FLIGHT RESERVATIONS MANAGER [facility] MCH 27.9 27.0 - 31.0 PG 08/12/2020 3:57 PM [facility] MCHC 31.2(L) 33.0 - 36.0 G/DL 08/12/2020 3:57 PM FLIGHT RESERVATIONS MANAGER [facility] RDW 13.9 11.5 - 14.5 % 08/12/2020 3:57 PM FLIGHT RESERVATIONS MANAGER [facility] PLT 89(L) 150 - 350 x10'3/uL 08/12/2020 3:57 PM [facility] MPV 12.8(H) 7.4 - 10.4 FL 08/12/2020 3:57 PM [facility] DIFFERENTIAL COMMENT NORMAL REFERENCE RANGE NOT ESTABLISHED FOR THE PROPORTIONAL LEUKOCYTE DIFFERENTIAL. 08/12/2020 3:57 PM [facility] SEG NEUTROPHILS 51.0 % 4:29 PM [facility] LYMPHOCYTES 33.0 % 08/12/2020 4:29 PM [facility] MONOCYTES 5.4 % 08/12/2020 4:29 PM [facility] EOSINOPHILS 9.4 % 08/12/2020 4:29 PM [facility] BASOPHILS 0.9 % 08/12/2020 4:29 PM [facility] IMMATURE GRANS % 0.3 % 08/12/19 4:29 PM [facility] NRBC 0.0 % 08/12/2020 4:29 PM [facility] ABS. NEUTROPHILS 3.77 1.60 - 8.30 x10'3/uL 08/12/2020 4:29 PM [facility] ABS. LYMPHOCYTES 2.44 0.80 - 4.70 x10'3/uL 08/12/2020 4:29 PM [facility] ABS. MONOCYTES 0.40 0.00 - 1.50 x10'3/uL 08/12/2020 4:29 PM [facility] ABS. EOSINOPHILS 0.70(H) 0.00 - 0.40 x10'3/uL 08/12/2020 4:29 PM [facility] ABS. BASOPHILS 0.07 0.00 - 0.20 x10'3/uL 08/12/2020 4:29 PM [facility] ABS. IMMATURE GRANULOCYTES 0.02 0.00 - 0.03 x10'3/uL 08/12/2020 4:29 PM [facility] ABS. NUCLEATED RBC'S 0.00 0.00 x10'3/uL 08/12/2020 4:29 PM [facility] PLT MORPH. DECREASED 08/12/2020 4:29 PM [facility] RBC MORPHOLOGY 1+ 08/12/2020 4:29 PM [facility] Comment:ANISOCYTOSIS 08/12/2020 3:48 PM FLIGHT RESERVATIONS MANAGER us Roberta Alex MD LABORATORY Final Result [facility] [address] [place] [address], documented in this encounter Visit Diagnoses Diagnosis Chronic ITP (idiopathic thrombocytopenia) ([facility]) Immune thrombocytopenic purpura Anemia Anemia, unspecified documented in this encounter Care Teams Tutoring Manager Relationship Specialty Start Date End Date Alejandro Blevins MD PCP - General FAMILY PRACTICE 12/10/19 documented as of this encounter
--- OUTSIDE RECORDS SUMMARY | 2024-07-11 10:01 | XMS_ITS | Encounter Summary ---
Author Organization [facility] Address [address] [place] [address]. [place], [place] [address] [place] [address] Care Team Providers Care Serging Machine Operator Name Role Phone Alejandro Blevins MD Primary Care Provider [phone] Reason for Visit * Reason Comments Medical Problem Encounter Details Date Type Department Care Team (Late st Contact Info) Description 07/30/2020 10:19 AM MIXER TENDER - 07/30/2020 11:33 AM MIXER TENDER Emergency [facility] [address] [facility] [place] [address] Dominick King MD [address] [place] [id number] Medical Problem Discharge Disposition: Home or Self Care (Routine Discharge) Social History Tobacco Use Types Packs/Day Years Used Date Smoking Tobacco: Former Smokeless Tobacco: Current Comments Yes Sex and Gender Information Value Date Recorded Sex Assigned at Not on file Legal Sex Female 11:30 PM MIXER TENDER Gender Identity Female 11/10/2021 3:09 PM CDT Sexual Orientation Straight 11/10/2021 3: 09 PM CDT COVID-19 Exposure Response Date Recorded In the last month, have you been in contact with someone who was confirmed or suspected to have Coronavirus / COVID-19? No / Unsure 07/29/2020 10:35 AM MIXER TENDER documented as of this encounter Last Filed Vital Signs Vital Sign Reading Time Taken Comments Blood Pressure 114/73 07/30/2020 11:30 AM MIXER TENDER Pulse 73 07/30/2020 11:30 AM MIXER TENDER Temperature 36.6 ??C (97.9 ??F) 07/30/2020 10:[address] Respiratory Rate 16 07/30/2020 11:30 AM MIXER TENDER Oxygen Saturation 98% 07/30/2020 11:30 AM MIXER TENDER Inhaled Oxygen Concentration - - Weight 59.4 kg (131 lb) 07/30/2020 10:34 AM MIXER TENDER Height 160 cm (5' 3 ) 07/30/2020 10:34 AM MIXER TENDER Body Mass Index 23.21 07/30/2020 10:34 AM MIXER TENDER documented in this encounter Discharge Instructions * Attachments The following attachments cannot be sent through Care Everywhere. * Bleeding Precautions (Indonesian) documented in this encounter Medications at Time [...] Dr king calls sjs contact re pt R TENDER * Julia Lowery RN - 07/30/2020 11:[address] king speaks with dr gomez, oncology R TENDER * Julia Lowery RN - 07/30/2020 10:[address] king places call to oncology for direction for pt R TENDER * Emma Jackson RN - 07/30/2020 10:37 AM CST Ambulatory to ED. Sent by cancer center for IVIG. Pt has hx ITP, is awaiting insurance approval to be given IVIG. Sent to ED this morning. Had platelett transfusion yesterday per cancer center. platelets remain low this morning. R TENDER R TENDER * Dominick King MD - 07/30/2020 10:13 [...] so she sent in here by her rehabilitation aide/scheduler. Patient states she has no complaints right [...] file Gets together: Not on file Attends confucianism service: Not on file Active member of [...] department. The case was discussed with her rehabilitation aide/scheduler Dr. Alex who recommends transfer to [facility] for likely 24 hours of hospitalization to administer the IVIG and to monitor the platelet count and response afterward. I placed a call to [facility] in [place] and the patient was placed on the waiting list due to no beds. When I went and updated the patient she stated that she could not wait any longer and was going to deal with some personal issues and either come back or more likely go to [facility] on her own. I told her I certainly cannot recommend this but try to impress upon her whenever she decided that she really needed to get this medication today at the recommendation of her rehabilitation aide/scheduler. FINAL IMPRESSION SNOMED CT(R) 1. Thrombocytopenia (CMS/HCC) PLATELET COUNT BELOW REFERENCE RANGE Roberta Alex MD [address] [facility] [address] Call Discharge Medication List as of 07/30/2020 11:31 AM Dominick King MD 07/30/20 1222 R TENDER documented in this encounter Plan of Treatment Upcoming Encounters Date Type Department Care Team (Late st Contact Info) Description 09/25/2024 11:30 AM MIXER TENDER Appointment [facility] [address] [address] Roberta Alex MD [address] [place] [address] 09/25/2024 11:40 AM MIXER TENDER Office Visit [facility] [address] [place] [address] Roberta Alex MD [address] [place] [address] documented as of this encounter Visit Diagnoses Diagnosis Thrombocytopenia (CMS/HCC)- Primary Thrombocytopenia, unspecified documented in this encounter Care Teams Serging Machine Operator Relationship Specialty Start Date End Date Alejandro Blevins MD PCP - General FAMILY PRACTICE 12/10/19 documented as of this encounter
--- OUTSIDE RECORDS SUMMARY | 2024-07-11 10:01 | XMS_ITS | Encounter Summary ---
Author Organization [facility] Address [address] [place] [address]. [place] [address] [place] [address] Care Team Providers Care Venetian Blind Mechanic Name Role Phone Alejandro Boss MD Primary Care Provider [phone] Reason for Visit * Reason Comments Low Blood Count * Auth/Cert Specialty Diagnoses / Procedures Referred By Contac t Referred To Contact Diagnoses Thrombocytopenia (CMS/HCC) Thrombocytopenia (CMS/HCC) Procedures GENERAL Referral ID Status Reason Start Date Expiration Date Visits Re quested Visits Authorized [id number] 1 1 Encounter Details Date Type Department Care Team (Latest Contact Info) Description 07/30/2020 1:58 PM BENDING ROLL HAND - 07/31/2020 4:41 PM BENDING ROLL HAND Hospital Encounter [facility] [address] [place] [address] Ania Be, POOLROOM/POOLHALL MANAGER [address], [place] [phone] Sherice Duarte MD [address] [place] [id number] Boom Ortez MD [address] [place] [address] Low Blood Count Discharge Disposition: Home or Self Care (Routine Discharge) Social History Tobacco Use Types Packs/Day Years Used Date Smoking Tobacco: Former Smokeless Tobacco: Current Comments Yes Sex and Gender Information Value Date Recorded Sex Assigned at Not on file Legal Sex Female 11:30 PM BENDING ROLL HAND Gender Identity Female 11/10/2021 3:09 PM CDT Sexual Orientation Straight 11/10/2021 3: 09 PM CDT COVID-19 Exposure Response Date Recorded In the last month, have you been in contact with someone who was confirmed or suspected to have Coronavirus / COVID-19? No / Unsure 07/30/2020 1:19 PM BENDING ROLL HAND documented as of this encounter Last Filed Vital Signs Vital Sign Reading Time Taken Comments Blood Pressure 113/80 07/31/2020 2:45 PM BENDING ROLL HAND Pulse 57 07/31/2020 2:45 PM BENDING ROLL HAND Temperature 36.8 ??C (98.2 ??F) 07/31/2020 11:[address] Respiratory Rate 16 07/31/2020 8:05 AM BENDING ROLL HAND Oxygen Saturation 100% 07/31/2020 2:45 PM BENDING ROLL HAND Inhaled Oxygen Concentration - - Weight 60.8 kg (134 lb 0.6 oz) 07/30/2020 1:23 P M BENDING ROLL HAND Height 160 cm (5' 3 ) 07/30/2020 1:23 PM BENDING ROLL HAND Body Mass Index 23.74 07/30/2020 1:23 PM BENDING ROLL HAND documented in this encounter Functional Status * Question Answer Date of Assessment Author Status Do you have serious difficulty walking or climbing stairs? No 07/30/2020 10:46 PM BENDING ROLL HAND Renita Le RN Active * Question Answer [...] Assessment Author Status No 07/30/2020 10:48 PM BENDING ROLL HAND Acti ve * RETIRED Are you blind or do you have serious difficulty seeing, even when wearing glasses? Answer Date of Assessment Author Status No 07/30/2020 10:46 PM BENDING ROLL HAND Acti ve * Do you have serious difficulty walking or climbing stairs? Answer Date of Assessment Author Status No 07/30/2020 10:46 PM BENDING ROLL HAND Hossein Le RN Active * Do you have difficulty dressing or bathing? Answer Date of Assessment Author Status No 07/30/2020 10:46 PM BENDING ROLL HAND Hossein Le RN Active * Because of a physical, mental, or emotional condition, do you have difficulty doing errands alone such as visiting a doctor's office or shopping? Answer Date of Assessment Author Status No 07/30/2020 10:46 PM Hossein Leonardo RN Active documented as of this [...] from the original note were not included. MA Hospitalist Discharge Summary Hillary Do female 1990 [...] positive Discharged Condition: Improved and stable Consultants: Mussel Farmer Dr. Hinkle Significant Diagnostic Studies: CBC Findings [...] Your Medications These medications were sent to [facility] - [place], [place] - [address] [facility] [place] [address] ?? predniSONE 50 MG tablet Medications discontinued [...] medications. She was recently in ICU at [place] after bleeding requiring prolonged ICU stay. For thrombocytopenia she was admitted as per the request her bicycle service technician Dr. Hinkle. She was evaluated on the [...] and is advised to follow-up with her bicycle service technician on Tuesday and repeat CBC tomorrow. Discussed with the patient in great detail. Her questions were answered. There is no evidence of active bleeding. She was advised to discontinue her naproxen until seen by her bicycle service technician and her thrombocytopenia has resolved. She verbalized [...] place, and time. Signed Sherice Duarte MD ING ROLL HAND documented in this encounter Discharge Instructions * Attachments The following attachments cannot be sent through Care Everywhere. * Heparin-Induced Thrombocytopenia Discharge Instructions (Ukrainian) * Immune Thrombocytopenia (ITP) (Ukrainian) * Platelet Count Test (Ukrainian) documented in this encounter Medications at Time [...] file Gets together: Not on file Attends yarsanism service: Not on file Active member of [...] on HCV antiviral treatment and follows with [facility] hepatology team. 4. Polysubstance abuse:. ??Patient has [...] 1 MCG/ kg dose next week at [facility]. Repeat CBC on 08/04. Patient aware of red flags to return to ER. Okay to discharge from our standpoint. She will follow-up with me next week at [facility] Time Spent: Approximately 30 minutes was spent in direct patient consultation and the majority of that time (>50%) was spent on counseling and coordination of care. D/w primary team, staff at [facility],pharmacy, Providers PRIMARY MEDICAL ONCOLOGIST: No care associate team physician to display PRIMARY CARE PROVIDER: ALEJANDRO BOSS MD ING ROLL HAND documented in this encounter H&P Notes * Sherice Duarte MD - 07/30/2020 4:52 PM CST Images from the original note were not included. MA Hospitalist History & Physical Attending Provider: Ania Be NP PCP: ALEJANDRO BOSS MD Hillary Estrellita Do is an 30-year-old female. IMPRESSION: Thrombocytopenia-acute on chronic PLAN: Patient with known history of thrombocytopenia with platelet count of 16 today. Is scheduled to get IVIG 1 g/kg per bicycle service technician Dr. Mcclellan on his recommendation. COVID-19 was [...] to come to the ED by her bicycle service technician Dr. Harp for IVIG and thrombocytopenia. Patient says that she was initially diagnosed with thrombocytopenia 8 years ago however she has notfollowed up with anybody since then. Recently about 3 months ago she had delivered twins and it wascomplicated by placental abruption requiring vent support, ICU stay, platelet transfusion, PRBC transfusion and iron transfusion in [place]. She was eventually discharged in April 2020. She has been doing okay and states she is trying to take care of herself since then. She has been following up with bicycle service technician for past 6 months with frequent CBC [...] UPPER RESPIRATORY PROFILE (RESPIRATORY PCR PANEL 2) [[id number]] Collected: 07/30/20 1525 Order Status: Completed Lab [...] place, and time. Sherice Duarte MD 07/30/2020 ING ROLL HAND documented in this encounter Consult Notes * [...] file Gets together: Not on file Attends yarsanism service: Not on file Active member of [...] WERE READ BACK BY ROSE JENKINS @ 1710 07/30/2020 BY TYRELL LARGE PLATELETS PRESENT CMP: [...] on HCV antiviral treatment and follows with [facility] hepatology team. 4. Polysubstance abuse:. Patient has [...] Discussed plan with staff, ER physician at [facility]. Again discussed plan with ER physician at [facility]. Providers PRIMARY CARE PROVIDER: MD Roberta VILLALOBOS MD ING ROLL HAND ING ROLL HAND documented in this encounter ED Notes * [...] patient with other providers: yes (Dr. Hinkle bicycle service technician Dr. Mauricio hospitalist) Patient Progress Patient progress: stable ED Course as of Jul 30 1624TueJul 30, 2020 1425 Patient is a 30-year-old female that presents to the emergency department with complaints of alow platelet count with referral here from her bicycle service technician, Dr. Hinkle, to be admitted to the [...] Maureen Ace MD at 07/31/2020 5:16 PM BENDING ROLL HAND ING ROLL HAND ING ROLL HAND * Monica Vences RN - 07/30/2020 1:18 PM CST Pt arrives per POV with c/o low platelet count. Pt states that she was sent here due to her needingto be admitted. ING ROLL HAND documented in this encounter Plan of Treatment Upcoming Encounters Date Type Department Care Team (Late st Contact Info) Description 09/25/2024 11:30 AM BENDING ROLL HAND Appointment [facility] [address] [place] [address] Roberta Hinkle MD [address] [place], [place] [id number] 09/25/2024 11:40 AM BENDING ROLL HAND Office Visit [facility] [place] [address] Roberta Hinkle MD [address] [place], [place] [phone] documented as of this encounter Procedures Procedure Name Priority Date/Time Associated Diagnosis Comments PARTIAL THROMBOPLASTIN TIME,PTT Routine 07/31/2020 4:55 AM BENDING ROLL HAND PROTHROMBIN TIME, VENOUS Routine 07/31/2020 4:55 AM BENDING ROLL HAND BASIC METABOLIC PANEL Routine 07/31/2020 4:55 AM BENDING ROLL HAND CBC W/DIFF AUTOMATED Routine 07/31/2020 4:55 AM BENDING ROLL HAND CULTURE, ROUTINE W/ GRAM STAIN Routine 07/31/2020 4:00 AM BENDING ROLL HAND TRANSFUSION REACTION EVALUATION STAT 07/31/2020 1:29 AM BENDING ROLL HAND URINALYSIS TRANSFUSION REACTION STAT 07/31/2020 1:28 AM BENDING ROLL HAND TRANSFUSION REACT INTERPRETATION Routine 07/31/2020 12:55 AM BENDING ROLL HAND TRANSFUSE PLATELET PHERESIS Routine 07/30/2020 11:40 PM BENDING ROLL HAND FLOW CYTOMETRY, PERIPHERAL BLD STAT 07/30/2020 6:27 PM BENDING ROLL HAND PARTIAL THROMBOPLASTIN TIME,PTT STAT 07/30/2020 6:27 PM BENDING ROLL HAND PROTHROMBIN TIME, VENOUS STAT 07/30/2020 6:27 PM BENDING ROLL HAND FIBRINOGEN STAT 07/30/2020 6:27 PM BENDING ROLL HAND ORDER PLATELET PHERESIS Routine 07/30/2020 3:46 PM BENDING ROLL HAND RESPIRATORY PCR PANEL 2 Nurse Collected Priority 07/30/2020 3:25 PM BENDING ROLL HAND TYPE & SCREEN STAT 07/30/2020 2:49 PM BENDING ROLL HAND BASIC METABOLIC PANEL STAT 07/30/2020 2:49 PM BENDING ROLL HAND CBC W/DIFF AUTOMATED STAT 07/30/2020 2:49 PM BENDING ROLL HAND FLOW CYTOMETRY Routine 07/30/2020 12:00 AM BENDING ROLL HAND PATHOLOGY Routine 07/30/2020 12:00 AM BENDING ROLL HAND documented in this encounter Results * (ABNORMAL) BASIC METABOLIC PANEL (07/31/2020 4:55 AM BENDING ROLL HAND) SODIUM S/P/B 136 136 - 145 MMOL/L 07/31/2020 5:40 AM BENDING ROLL HAND [facility] POTASSIUM S/P/B 4.1 3.5 - 5.1 MMOL/L 07/31/2020 5:40 AM BENDING ROLL HAND [facility] CHLORIDE S/P/B 106 98 - 107 MMOL/L 07/31/2020 5:40 AM BENDING ROLL HAND [facility] CO2 24.5 21.0 - 32.0 MMOL/L 07/31/2020 5:40 AM BENDING ROLL HAND [facility] GLUCOSE 101 74 - 106 MG/DL 07/31/2020 5:40 AM BENDING ROLL HAND [facility] BUN 21(H) 7 - 18 MG/DL 07/31/2020 5:58 AM BENDING ROLL HAND [facility] CREATININE S/P/B 0.76 0.55 - 1.02 MG/DL 07/31/2020 5:40 AM [facility] CALCIUM S/P/B 8.4(L) 8.5 - 10.1 MG/DL 07/31/2020 5:40 AM [facility] ANION GAP 5.5 5.0 - 15.0 MMOL/L 07/31/2020 5:40 AM BENDING ROLL HAND [facility] Comment:REFERENCE RANGE NOT ESTABLISHED OSMOLALITY (CALC) 285 MOSM/KG 021 5:58 AM BENDING ROLL HAND [facility] Comment:REFERENCE RANGE NOT ESTABLISHED EGFR NON-AFR. AMER. >90 >90 ML/MIN/1. 73 M2 07/31/2020 5:40 AM BENDING ROLL HAND [facility] EGFR AFR. AMER. >90 >90 ML/MIN/1. 73 M2 07/31/2020 5:40 AM [facility] GFR NOTES GFR REFERENCE S: 07/31/2020 5:40 AM [facility] Comment: THE ESTIMATED GFR IS [...] FAILURE: <15 ml/min/1.73 m2 07/31/2020 4:55 AM BENDING ROLL HAND us Sherice Duarte MD LABORATORY Final Result [facility] [address] [place] [address], [id number] * PARTIAL THROMBOPLASTIN TIME,PTT (07/31/2020 4:55 AM BENDING ROLL HAND) PTT 32.6 25.1 - 36.5 SEC 07/31/2020 5:33 AM BENDING ROLL HAND [facility] 07/31/2020 4:55 AM BENDING ROLL HAND us Sherice Duarte MD LABORATORY Final Result Performing Organization Address [facility] Co de Phone Number [facility] [address] [place] [address], [id number] * PROTHROMBIN TIME, VENOUS (07/31/2020 4:55 AM BENDING ROLL HAND) PROTIME 12.3 10.2 - 12.9 SEC 07/31/2020 5:31 AM BENDING ROLL HAND [facility] INR 1.1 0.9 - 1.1 07/31/2020 5:31 AM BENDING ROLL HAND [facility] 07/31/2020 4:55 AM BENDING ROLL HAND us Sherice Duarte MD LABORATORY Final Result Performing Organization Address [facility] Co de Phone Number [facility] [address] [place] [address], [id number] * (ABNORMAL) CBC W/DIFF AUTOMATED (07/31/2020 4:55 AM BENDING ROLL HAND) WBC 6.8 4.0 - 10.8 x10'3/uL 07/31/2020 5:41 AM BENDING ROLL HAND [facility] RBC 4.00(L) 4.10 - 5.40 x10'6/uL 07/31/2020 5:41 AM BENDING ROLL HAND [facility] HGB 11.3(L) 12.0 - 16.0 G/DL 07/31/2020 5:41 AM [facility] HCT 36.2 36.0 - 47.0 % 07/31/2020 5:41 AM [facility] MCV 90.5 78.0 - 100.0 FL 07/31/2020 5:41 AM [facility] MCH 28.3 27.0 - 31.0 PG 07/31/2020 5:41 AM [facility] MCHC 31.2(L) 33.0 - 36.0 G/DL 07/31/2020 5:41 AM [facility] RDW 13.6 11.5 - 14.5 % 07/31/2020 5:41 AM [facility] PLT 30(L) 150 - 350 x10'3/uL 07/31/2020 6:12 AM [facility] MPV UNABLE TO PERFORM TEST 7.4 - 10.4 FL 07/31/2020 6:12 AM [facility] ABS. NEUTROPHILS TOTAL 5.53 1.60 - 8.30 x10'3/uL 07/31/2020 5:41 AM [facility] ABS. LYMPHOCYTES 0.56(L) 0.80 - 4.70 x10'3/uL 07/31/2020 5:41 AM [facility] ABS. MONOCYTES 0.28 0.00 - 1.50 x10'3/uL 07/31/2020 5:41 AM [facility] ABS. EOSINOPHILS 0.34 0.00 - 0.40 x10'3/uL 07/31/2020 5:41 AM [facility] ABS. BASOPHILS 0.06 0.00 - 0.20 x10'3/uL 07/31/2020 5:41 AM [facility] ABS. IMMATURE GRANULOCYTES 0.03 0.00 - 0.03 x10'3/uL 07/31/2020 5:41 AM [facility] ABS. NUCLEATED RBC'S 0.00 0.0 x10'3/uL 07/31/2020 5:41 AM BENDING ROLL HAND [facility] 07/31/2020 4:55 AM BENDING ROLL HAND us Sherice Duarte MD LABORATORY Final Result Performing Organization Address [facility] de Phone Number [facility] [address] [place] [address], [id number] * CULTURE, ROUTINE W/ GRAM STAIN (07/31/2020 4:00 AM BENDING ROLL HAND) SPEC DESCRIPTION BLOOD: [id number] 07/31/2020 5:04 AM BENDING ROLL HAND [facility] SPECIAL REQUESTS POSSIBLE TRANSFUSION REACTION 07/31/2020 5:04 AM BENDING ROLL HAND [facility] GRAM STAIN RESULT NO ORGANISMS SEEN 07/31/2020 7:29 AM BENDING ROLL HAND [facility] CULTURE RESULT NO GROWTH 5 DAYS 08/05/2020 9:32 AM BENDING ROLL HAND [facility] BLOOD SPECIMEN OBTAINED FOR BLOOD CULTURE / Unknown 07/31/2020 4:00 AM BENDING ROLL HAND 07/31/2020 5:03 AM [facility]LL HAND Comment:[id number] us Kamron Chacon MD MICROBIOLOGY - GENERAL ORDER CRUZITO Final Result Performing Organization Address [facility] de Phone Number [facility] [address] [place] [address], [id number] * Transfusion reaction evaluation (07/31/2020 1:29 AM BENDING ROLL HAND) CLERICAL CHECK REVIEW OF PAPERWORK, PATIENT TESTING, DONOR LABEL AND TRANSFUSION FORM SHOWS NO DISCREPANCIES. 07/31/2020 3:21 AM BENDING ROLL HAND [facility] VISUAL CHECK PRE NO VISIBLE HEMOLYSIS NO VISIBLE ICTERUS 07/31/2020 3:21 AM BENDING ROLL HAND [facility] VISUAL CHECK POST NO VISIBLE HEMOLYSIS NO VISIBLE ICTERUS 07/31/2020 3:21 AM BENDING ROLL HAND [facility] ABO/RH A POSITIVE 07/31/2020 3:21 AM BENDING ROLL HAND [facility] TRANSFUSION REACTION INTERP OK TO TRANSFUSE PATIENT 07/31/2020 4:00 AM BENDING ROLL HAND [facility] ANTIBODY ELUTION The non-reactive eluate suggests that the positive Direct Antiglobulin Test and/or auto control is due to a medication-mike kait antibody, rather than an auto or allo antibody. 07/31/2020 3:43 AM BENDING ROLL HAND [facility] APPEARANCE (U) APPEARANCE OF BLOOD, FILTER SET AND SOLUTIONS IS NORMAL 07/31/2020 3:21 AM BENDING ROLL HAND [facility] POST LANDY C3 LISET NEGATIVE 07/31/2020 3:21 AM BENDING ROLL HAND [facility] POST LANDY IGG LISET POSITIVE CRITICAL RESULT, SPECIMEN DATE, TIME WERE READ BACK BY HOSSEIN [place] [id number] KARLEY 07/31/2020 3:43 AM BENDING ROLL HAND [facility] PRE LANDY C3 LISET NEGATIVE 07/31/2020 3:21 AM BENDING ROLL HAND [facility] PRE LANDY IGG LISET NEGATIVE 07/31/2020 3:21 AM BENDING ROLL HAND [facility] PRODUCT: PLATELETS 07/31/2020 3:21 AM BENDING ROLL HAND [facility] CLINICAL SIGNS/SYMPTOMS CHILLS BACK PAIN, DIAPHORESIS 07/31/2020 3:21 AM BENDING ROLL HAND [facility] TRXN GR STAIN/CULT UNIT GRAM STAIN AND CULTURE ORDERED, SEE SEPARATE MICROBIOLOGY REPORT FOR RESULTS. 07/31/2020 4:04 AM BENDING ROLL HAND [facility] 07/31/2020 1:29 AM BENDING ROLL HAND us Sherice Duarte MD BLOOD BANK TEST ORDERABLES F inal Result [facility] [address] [place] [address], [id number] * URINALYSIS TRANSFUSION REACTION (07/31/2020 1:28 AM BENDING ROLL HAND) COLOR (U) LIGHT YELLOW 07/31/2020 3:12 AM BENDING ROLL HAND [facility] TRANSPARENCY CLEAR 07/31/2020 3:12 AM BENDING ROLL HAND [facility] BLOOD (U) NEGATIVE 07/31/2020 3:12 AM BENDING ROLL HAND [facility] RBC/HPF 2 0 - 3 /HPF 07/31/2020 3:12 AM BENDING ROLL HAND [facility] 07/31/2020 1:28 AM BENDING ROLL HAND us Sherice Duarte MD URINE ORDERABLES Final Resul t [facility] [address] [place] [address], [id number] * TRANSFUSION REACT INTERPRETATION (07/31/2020 12:55 AM BENDING ROLL HAND) PATHOLOGIST COMMENT FNHTR can also be defined [...] TNFa, IL-1 or IL-6. 08/08/2020 4:25 AM BENDING ROLL HAND [facility] Comment: These cytokines may [...] TRANSFUSION REACTION (CYTOKINE). 07/31/2020 12:5 5 AM BENDING ROLL HAND us Kamron Chacon MD BLOOD BANK TEST ORDERABLES F inal Result Performing Organization Address City/[facility]/ZIP Co de Phone Number [facility] [address] [place] [address], [id number] * TRANSFUSE PLATELET PHERESIS (07/31/2020 12:50 AM BENDING ROLL HAND) Ania Be POOLROOM/POOLHALL MANAGER NURSING TREATMENT ORDERABLES - BLOOD ADMIN Final Result * TRANSFUSE PLATELET PHERESIS, 1 Units (07/31/2020 12:50 AM BENDING ROLL HAND) Ania Perze Haile POOLROOM/POOLHALL MANAGER NURSING TREATMENT ORDERABLES - BLOOD ADMIN Final Result * FLOW CYTOMETRY, PERIPHERAL BLD (07/30/2020 6:27 PM BENDING ROLL HAND) FLOW CYTOMETRY RESULTS IN COPATH 07/31/2020 6:50 PM BENDING ROLL HAND [facility] 07/30/2020 6:27 PM BENDING ROLL HAND Roberta Hinkle MD LABORATORY Final Result Performing Organization Address [facility] Co de Phone Number [facility] [address] [place] [address], [id number] * (ABNORMAL) FIBRINOGEN (07/30/2020 6:27 PM BENDING ROLL HAND) Pathologist [facility] FIBRINOGEN 197(L) 200 - 393 MG/DL 07/30/2020 7:03 PM BENDING ROLL HAND [facility] 07/30/2020 6:27 PM BENDING ROLL HAND Roberta Hinkle MD LABORATORY Final Result Performing Organization Address [facility] Co de Phone Number [facility] [address] [place] [address], [id number] * (ABNORMAL) PARTIAL THROMBOPLASTIN TIME,PTT (07/30/2020 6:27 PM BENDING ROLL HAND) PTT 24.0(L) 25.1 - 36.5 SEC 07/30/2020 7:05 PM BENDING ROLL HAND [facility] 07/30/2020 6:27 PM BENDING ROLL HAND Roberta Hinkle MD LABORATORY Final Result Performing Organization Address [facility] de Phone Number [facility] [address] [place] [address], [id number] * PROTIME/INR, VENOUS (07/30/2020 6:27 PM BENDING ROLL HAND) PROTIME 10.9 10.2 - 12.9 SEC 07/30/2020 7:03 PM BENDING ROLL HAND [facility] INR 1.0 0.9 - 1.1 07/30/2020 7:03 PM BENDING ROLL HAND [facility] 07/30/2020 6:27 PM BENDING ROLL HAND Roberta Hinkle MD LABORATORY Final Result Performing Organization Address [facility] de Phone Number [facility] [address] [place] [address], [id number] * ORDER PLATELET PHERESIS, 1 Units (07/30/2020 3:46 PM BENDING ROLL HAND) UNITS ORDERED 1 07/30/2020 3:47 PM BENDING ROLL HAND [facility] BLOOD UNIT NUMBER [id number] 07/30/2020 11:29 PM BENDING ROLL HAND [facility] PRODUCT: PLT PHERESIS LEUKOPOOR 07/30/2020 11:29 PM BENDING ROLL HAND [facility] UNIT DIVISION 00 07/30/2020 11:29 PM BENDING ROLL HAND [facility] BLOOD UNIT STATUS TRANSFUSED,FINAL 07/31/2020 3:50 AM BENDING ROLL HAND [facility] ISSUE DATE/TIME [id number] 021 3:50 AM BENDING ROLL HAND [facility] PRODUCT CODE [id number] 07/31/2020 3:50 AM BENDING ROLL HAND [facility] ABO/RH Unit A POS 07/31/2020 3:50 AM BENDING ROLL HAND [facility] ABO/RH UNIT ISBT CODE 6200 07/31/2020 3:50 AM BENDING ROLL HAND [facility] BLOOD UNIT EXPIRATION DATE [id number] 07/31/2020 3:50 AM BENDING ROLL HAND [facility] TRANSFUSION STATUS OK TO TRANSFUSE 07/30/2020 11:29 PM BENDING ROLL HAND [facility] 07/30/2020 3:46 PM BENDING ROLL HAND Ania Be POOLROOM/POOLHALL MANAGER BLOOD BANK PRODUCT ORDERABLES F inal Result [facility] [address] [place] [address], [place] [phone] [id number] * BIOFIRE PCR UPPER RESPIRATORY PROFILE (RESPIRATORY PCR PANEL 2) (07/30/2020 3:25 PM BENDING ROLL HAND) ADENOVIRUS PCR (RESP) NOT DETECTED NOT DETECTED 07/30/2020 4:30 PM BENDING ROLL HAND [facility] CORONAVIRUS 229E PCR (RESP) NOT DETECTED NOT DETECTED 07/30/2020 4:30 PM BENDING ROLL HAND [facility] CORONAVIRUS HKU1 PCR (RESP) NOT DETECTED NOT DETECTED 07/30/2020 4:30 PM BENDING ROLL HAND [facility] CORONAVIRUS NL63 PCR (RESP) NOT DETECTED NOT DETECTED 07/30/2020 4:30 PM BENDING ROLL HAND [facility] CORONAVIRUS OC43 PCR (RESP) NOT DETECTED NOT DETECTED 07/30/2020 4:30 PM BENDING ROLL HAND [facility] METAPNEUMOVIRUS PCR (RESP) NOT DETECTED NOT DETECTED 07/30/2020 4:30 PM BENDING ROLL HAND [facility] RHINOVIRUS/ENTEROV IRUS PCR (RESP) NOT DETECTED NOT DETECTED 07/30/2020 4:30 PM BENDING ROLL HAND [facility] INFLUENZA A PCR (RESP) NOT DETECTED NOT DETECTED 07/30/2020 4:30 PM BENDING ROLL HAND [facility] INFLUENZA B PCR (RESP) NOT DETECTED NOT DETECTED 07/30/2020 4:30 PM BENDING ROLL HAND [facility] PARAINFLUENZA 1 PCR (RESP) NOT DETECTED NOT DETECTED 07/30/2020 4:30 PM BENDING ROLL HAND [facility] PARAINFLUENZA 2 PCR (RESP) NOT DETECTED NOT DETECTED 07/30/2020 4:30 PM BENDING ROLL HAND [facility] PARAINFLUENZA 3 PCR (RESP) NOT DETECTED NOT DETECTED 07/30/2020 4:30 PM BENDING ROLL HAND [facility] PARAINFLUENZA 4 PCR (RESP) NOT DETECTED NOT DETECTED 07/30/2020 4:30 PM BENDING ROLL HAND [facility] RSV PCR (RESP) NOT DETECTED NOT DETECTED 07/30/2020 4:30 PM BENDING ROLL HAND [facility] B PARAPERTUSIS PCR (RESP) NOT DETECTED NOT DETECTED 07/30/2020 4:30 PM BENDING ROLL HAND [facility] BORDETELLA PERTUSSIS PCR (RESP) NOT DETECTED NOT DETECTED 07/30/2020 4:30 PM BENDING ROLL HAND [facility] CHLAMYDOPHILA PNEUMONIAE PCR (RESP) NOT DETECTED NOT DETECTED 07/30/2020 4:30 PM BENDING ROLL HAND [facility] MYCOPLASMA PNEUMONIAE PCR (RESP) NOT DETECTED NOT DETECTED 07/30/2020 4:30 PM BENDING ROLL HAND [facility] CORONAVIRUS SARS COV 2 PCR (RESP) NOT DETECTED NOT DETECTED 07/30/2020 4:30 PM BENDING ROLL HAND [facility] Comment: THE SARS-CoV-2 TEST HAS BEEN AUTHORIZED BY THE FDA UNDER AN EUA FOR USE BY AUTHORIZED LABORATORIES. NASOPHARYNGEAL SWAB / Unknown 07/30/2020 3:25 PM BENDING ROLL HAND Ania Be NP MICROBIOLOGY - GENERAL ORDERABL ES Final Result [facility] [address] [place] [address], [id number] * TYPE AND SCREEN (07/30/2020 2:49 PM BENDING ROLL HAND) ABO/RH A POSITIVE 07/30/2020 3:51 PM BENDING ROLL HAND [facility] ANTIBODY SCREEN NEGATIVE 07/30/2020 3:51 PM BENDING ROLL HAND [facility] SAMPLE EXPIRATION 08/02/2020,2 359 07/30/2020 3:09 PM BENDING ROLL HAND [facility] 07/30/2020 2:49 PM BENDING ROLL HAND us Ania Be POOLROOM/POOLHALL MANAGER BLOOD BANK TEST ORDERABLES Ashley castanon Result [facility] [address] [place] [address], [id number] * (ABNORMAL) BASIC METABOLIC PANEL (07/30/2020 2:49 PM BENDING ROLL HAND) Pathologist [facility] SODIUM S/P/B 138 136 - 145 MMOL/L 07/30/2020 3:29 PM [facility] POTASSIUM S/P/B 4.0 3.5 - 5.1 MMOL/L 07/30/2020 3:29 PM [facility] CHLORIDE S/P/B 106 98 - 107 MMOL/L 07/30/2020 3:29 PM [facility] CO2 27.6 21.0 - 32.0 MMOL/L 07/30/2020 3:29 PM BENDING ROLL HAND [facility] GLUCOSE 81 74 - 106 MG/DL 07/30/2020 3:29 PM [facility] BUN 10 7 - 18 MG/DL 07/30/2020 3:29 PM [facility] CREATININE S/P/B 0.69 0.55 - 1.02 MG/DL 07/30/2020 3:29 PM [facility] CALCIUM S/P/B 8.7 8.5 - 10.1 MG/DL 07/30/2020 3:29 PM BENDING ROLL HAND [facility] ANION GAP 4.4(L) 5.0 - 15.0 MMOL/L 07/30/2020 3:29 PM BENDING ROLL HAND [facility] Comment:REFERENCE RANGE NOT ESTABLISHED OSMOLALITY (CALC) 284 MOSM/KG 021 3:29 PM BENDING ROLL HAND [facility] Comment:REFERENCE RANGE NOT ESTABLISHED EGFR NON-AFR. AMER. >90 >90 ML/MIN/1. 73 M2 07/30/2020 3:29 PM BENDING ROLL HAND [facility] EGFR AFR. AMER. >90 >90 ML/MIN/1. 73 M2 07/30/2020 3:29 PM BENDING ROLL HAND [facility] GFR NOTES GFR REFERENCE S: 07/30/2020 3:29 PM BENDING ROLL HAND [facility] Comment: THE ESTIMATED GFR [...] FAILURE: <15 ml/min/1.73 m2 07/30/2020 2:49 PM BENDING ROLL HAND Ania Be POOLROOM/POOLHALL MANAGER LABORATORY Final Result [facility] [address] [place] [address], [id number] * (ABNORMAL) CBC W/DIFF AUTOMATED (07/30/2020 2:49 PM BENDING ROLL HAND) WBC 4.7 4.0 - 10.8 x10'3/uL 07/30/2020 3:12 PM BENDING ROLL HAND [facility] RBC 4.42 4.10 - 5.40 x10'6/uL 07/30/2020 3:12 PM [facility] HGB 12.4 12.0 - 16.0 G/DL 07/30/2020 3:12 PM [facility] HCT 40.5 36.0 - 47.0 % 07/30/2020 3:12 PM [facility] MCV 91.6 78.0 - 100.0 FL 07/30/2020 3:12 PM [facility] MCH 28.1 27.0 - 31.0 PG 07/30/2020 3:12 PM [facility] MCHC 30.6(L) 33.0 - 36.0 G/DL 07/30/2020 3:12 PM [facility] RDW 13.7 11.5 - 14.5 % 07/30/2020 3:12 PM [facility] PLT 16(LL) 150 - 350 x10'3/uL 07/30/2020 3:25 PM [facility] Comment: CRITICAL RESULT, SPECIMEN DATE, TIME WERE READ BACK BY ROSE JENKINS @ 1520 07/30/2020 BY TYRELL LARGE PLATELETS PRESENT MPV UNABLE TO PERFORM TEST 7.4 - 10.4 FL 07/30/2020 3:12 PM [facility] ABS. NEUTROPHILS TOTAL 3.00 1.60 - 8.30 x10'3/uL 07/30/2020 3:12 PM [facility] ABS. LYMPHOCYTES 0.63(L) 0.80 - 4.70 x10'3/uL 07/30/2020 3:12 PM [facility] ABS. MONOCYTES 0.25 0.00 - 1.50 x10'3/uL 07/30/2020 3:12 PM [facility] ABS. EOSINOPHILS 0.74(H) 0.00 - 0.40 x10'3/uL 07/30/2020 3:12 PM [facility] ABS. BASOPHILS 0.07 0.00 - 0.20 x10'3/uL 07/30/2020 3:12 PM BENDING ROLL HAND [facility] ABS. IMMATURE GRANULOCYTES 0.01 0.00 - 0.03 x10'3/uL 07/30/2020 3:12 PM BENDING ROLL HAND [facility] ABS. NUCLEATED RBC'S 0.00 0.0 x10'3/uL 07/30/2020 3:12 PM BENDING ROLL HAND [facility] 07/30/2020 2:49 PM BENDING ROLL HAND us Ania Be POOLROOM/POOLHALL MANAGER LABORATORY Final Result [facility] [address] [place] [id number], [id number] * Pathology (07/30/2020 12:00 AM BENDING ROLL HAND) PATHOLOGY [facility] ? Department of Laboratory Medicine ?[address] [facility] ?[place] [address] ? , extension [phone] ? Pathology Report ? Peripheral Smear Report Name: HILLARY DO ? Specimen #: [id number] Age: 12 1990 (Age: 30) ?Location: [facility] Sex: F ?Procedure Date: 07/30/2020 Hospital #: [id number] ?Date Received: 08/01/2020 Date Reported: 08/01/2020 Provider: [...] the specimen. ??See separate flow cytometry report ([id number]). Electronically Signed Out ? Eladio ??Khari Vasquez [...] forms. ??No other specific abnormalities are seen. [facility] 07/30/2020 08/01/2020 8:3 9 AM BENDING ROLL HAND Comment:PERIPHERAL BLOOD us Roberta Hinkle MD PATHOLOGY/CYTOLOGY ORDERABLES Final Result [facility] [address] [place] [address], [id number] * Flow Cytometry (07/30/2020 12:00 AM BENDING ROLL HAND) FLOW CYTOMETRY RESULTS [facility] ? Department of Laboratory Medicine ?[address] [facility] ?[place] [address] ? , extension [phone] ? Pathology Report ? Flow Cytometry Report Name: HILLARY DO ? Specimen #: [id number] Age: 12 1990 (Age: 30) ?Location: [facility] Sex: F ?Procedure Date: 07/30/2020 [facility] #: [id number] ?Date Received: 07/30/2020 Date Reported: 08/04/2020 Provider: [...] CD10, CD19, CD23, CD5, CD20, Surface Ig [place], Surface Ig L[place], CD56, CD52, CD22. ? Electronically Signed Out ? Eladio ??Khari Vasquez M.D., Ph.D. This test was developed and its performance characteristics determined by [facility]. It has not been cleared or approved by the U.S. Food and Drug Administration. However, the use of Analyte Specific Reagents does not require FDA approval. [facility] 07/30/2020 07/30/2020 6:4 0 PM BENDING ROLL HAND Comment:PERIPHERAL BLOOD us Roberta Hinkle MD PATHOLOGY/CYTOLOGY ORDERABLES Final Result [facility] [address] [place] [address], [id number] documented in this encounter Visit Diagnoses Diagnosis [...] in 24 hours. Given 07/31/2020 1:50 PM BENDING ROLL HAND 650 mg Given 07/31/2020 12:39 AM BENDING ROLL HAND 650 mg diphenhydrAMINE (BENADRYL) capsule 25 mg 25 mg, Oral, Once, 1 dose, On Tue07/31/20 at 0115 Given 07/31/2020 1:21 AM BENDING ROLL HAND 25 mg immune globulin (Human) (GAMMAGARD, GAMUNEX-C) [...] infusion complete. Rate/Dose Change 07/31/2020 2:03 PM BENDING ROLL HAND 61 mL/hr New Bag 07/31/2020 1:23 PM BENDING ROLL HAND 30 g 36 mL/hr immune globulin (Human) [...] infusion complete. Rate/Dose Change 07/30/2020 7:49 PM BENDING ROLL HAND 304 mL/h r New Bag 07/30/2020 7:47 PM BENDING ROLL HAND 60 g New Bag 07/30/2020 7:24 PM BENDING ROLL HAND 10 g 243 mL/hr sodium chloride 0.9% infusion at 10 mL/hr, Intravenous, Continuous, Starting on Tue07/30/20 at 1600, Until Tue07/31/20 at 1559, Infuse at TKO rate New Bag 07/30/2020 8:55 PM BENDING ROLL HAND 250 mLs 10 mL/hr sodium chloride 0.9% infusion at 100 mL/hr, Intravenous, Continuous, Starting on Tue07/31/20 at 0430, Until Tue07/31/20 at 1841 New Bag 07/31/2020 5:03 AM BENDING ROLL HAND 100 mL/hr documented in this encounter Active and Recently Administered Medications Times are shown in BENDING ROLL HAND. Scheduled Medication Order 07/29/2020 07/30/2020 07/31/2020 diphenhydrAMINE [...] Rule Out 07/30/2020 07/30/2020 07/30/2020 4:31 PM BENDING ROLL HAND documented as of this encounter Care Teams Venetian Blind Mechanic Relationship Specialty Start Date End Date Alejandro Boss MD PCP - General FAMILY PRACTICE 12/10/19 documented as of this encounter
--- OUTSIDE RECORDS SUMMARY | 2024-07-11 10:01 | XMS_ITS | Encounter Summary ---
Author Organization [facility] Address [address] [place] [address]. [place], [place] [id number] [place] [address] Care Team Providers Care Research Computing Specialist Name Role Phone Alejandro Blevins MD Primary Care Provider [phone] Encounter Details Date Type Department Care Team (Latest Contact Info) Description 09/09/2020 Travel Social History Tobacco Use Types Packs/Day Years Used Date Smoking Tobacco: Former Smokeless Tobacco: Current Comments Yes Sex and Gender Information Value Date Recorded Sex Assigned at Not on file Legal Sex Female 11:30 PM SPA ATTENDANT Gender Identity Female 11/10/2021 3:09 PM CDT Sexual Orientation Straight 11/10/2021 3: 09 PM CDT COVID-19 Exposure Response Date Recorded In the last month, have you been in contact with someone who was confirmed or suspected to have Coronavirus / COVID-19? No / Unsure 09/09/2020 11:08 AM SPA ATTENDANT documented as of this encounter Functional Status * RETIRED Are you deaf or do you have serious difficulty hearing Answer Date of Assessment Author Status No 07/30/2020 10:48 PM SPA ATTENDANT Acti ve * RETIRED Are you blind or do you have serious difficulty seeing, even when wearing glasses? Answer Date of Assessment Author Status No 07/30/2020 10:46 PM SPA ATTENDANT Acti ve * Do you have serious difficulty walking or climbing stairs? Answer Date of Assessment Author Status No 07/30/2020 10:46 PM SPA ATTENDANT Nella Le RN Active * Do you have difficulty dressing or bathing? Answer Date of Assessment Author Status No 07/30/2020 10:46 PM SPA ATTENDANT Nella Le RN Active * Because [...] st Contact Info) Description 09/25/2024 11:30 AM SPA ATTENDANT Appointment [place] [id number] [facility] [address] Roberta Alex MD [address] [place] [address] 09/25/2024 11:40 AM SPA ATTENDANT Office Visit [facility] [place] [address] Roberta Alex MD [address] [place] [address] [phone] documented as of this encounter Visit Diagnoses Not on filedocumented in this encounter Care Teams Research Computing Specialist Relationship Specialty Start Date End Date Alejandro Blevins MD PCP - General FAMILY PRACTICE 12/10/19 documented as of this encounter
--- OUTSIDE RECORDS SUMMARY | 2024-07-11 10:01 | XMS_ITS | Encounter Summary ---
Author Organization [facility] Address [address] [place] [address]. [place], [place] [address] [place] [address] Care Team Providers Care Ultra Sound Technician Name Role Phone Alejandro Blevins MD Primary Care Provider [phone] Encounter Details Date Type Department Care Team (Latest Contact Info) Description 08/07/2020 Travel Social History Tobacco Use Types Packs/Day Years Used Date Smoking Tobacco: Former Smokeless Tobacco: Current Comments Yes Sex and Gender Information Value Date Recorded Sex Assigned at Not on file Legal Sex Female 11:30 PM DISTRIBUTION TECHNICIAN Gender Identity Female 11/10/2021 3:09 PM CDT Sexual Orientation Straight 11/10/2021 3: 09 PM CDT COVID-19 Exposure Response Date Recorded In the last month, have you been in contact with someone who was confirmed or suspected to have Coronavirus / COVID-19? No / Unsure 08/07/2020 8:30 AM DISTRIBUTION TECHNICIAN documented as of this encounter Functional Status * RETIRED Are you deaf or do you have serious difficulty hearing Answer Date of Assessment Author Status No 07/30/2020 10:48 PM DISTRIBUTION TECHNICIAN Acti ve * RETIRED Are you blind or do you have serious difficulty seeing, even when wearing glasses? Answer Date of Assessment Author Status No 07/30/2020 10:46 PM DISTRIBUTION TECHNICIAN Acti ve * Do you have serious difficulty walking or climbing stairs? Answer Date of Assessment Author Status No 07/30/2020 10:46 PM DISTRIBUTION TECHNICIAN Nella Le RN Active * Do you have difficulty dressing or bathing? Answer Date of Assessment Author Status No 07/30/2020 10:46 PM DISTRIBUTION TECHNICIAN Nella Le RN Active * Because [...] st Contact Info) Description 09/25/2024 11:30 AM DISTRIBUTION TECHNICIAN Appointment [place] [id number] [facility] [address] Roberta Alex MD [address] [place] [address] 09/25/2024 11:40 AM DISTRIBUTION TECHNICIAN Office Visit [facility] [place] [address] Roberta Alex MD [address] [place] [phone] documented as of this encounter Visit Diagnoses Not on filedocumented in this encounter Care Teams Ultra Sound Technician Relationship Specialty Start Date End Date Alejandro Blevins MD PCP - General FAMILY PRACTICE 12/10/19 documented as of this encounter
--- OUTSIDE RECORDS SUMMARY | 2024-07-11 10:01 | XMS_ITS | Encounter Summary ---
Author Organization [facility] Address [address] [place] [address]. [place] [address] [place] [address] Care Team Providers Care Cotton Chopper Name Role Phone Alejandro Blevins MD Primary Care Provider [phone] Reason for Visit * Reason Onset Date Comments Lab Results 07/21/2020 Encounter Details Date Type Department Care Team (Late Contact Info) Description 07/21/2020 Telephone [facility] [place] [address] Kitty Elizondo bed laster Results Social History Tobacco Use Types Packs/Day Years Used Date Smoking Tobacco: Every Day Smokeless Tobacco: Never Comments Yes Sex and Gender Information Value Date Recorded Sex Assigned at Not on file Legal Sex Female 11:30 PM ADVERTISING REP Gender Identity Female 11/10/2021 3:09 PM CDT Sexual Orientation Straight 11/10/2021 3: 09 PM CDT COVID-19 Exposure Response Date Recorded In the last month, have you been in contact with someone who was confirmed or suspected to have Coronavirus / COVID-19? No / Unsure 07/21/2020 12:03 PM ADVERTISING REP documented as of this encounter Progress Notes * Roberta Alex MD - 07/21/2020 5:01 PM CST Called pt with instructions RTISING REP documented in this encounter Plan of Treatment Upcoming Encounters Date Type Department Care Team (Late Contact Info) Description 09/25/2024 11:30 AM ADVERTISING REP Appointment [facility] [address] [place] [address] Roberta Alex MD [address] [place] [address] 09/25/2024 11:40 AM ADVERTISING REP Office Visit [address] [place] [address] Roberta Alex MD [address] [place] [address] documented as of this encounter Visit Diagnoses Not on filedocumented in this encounter Care Teams Cotton Chopper Relationship Specialty Start Date End Date Alejandro Blevins MD PCP - General FAMILY PRACTICE 12/10/19 documented as of this encounter
--- OUTSIDE RECORDS SUMMARY | 2024-07-11 10:01 | XMS_ITS | Encounter Summary ---
Author Organization [facility] Address [address] [place] [address]. [place] [address] [place] [address] Care Team Providers Care Religion Instructor Name Role Phone Alejandro Blevins MD Primary Care Provider [phone] Reason for Visit * Reason Onset Date Comments Lab Results 07/21/2020 Encounter Details Date Type Department Care Team (Late st Contact Info) Description 07/21/2020 Telephone [facility] [address] [address] Roberta Alex MD [address] [place] [address] Lab Results Social History Tobacco Use Types Packs/Day Years Used Date Smoking Tobacco: Every Day Smokeless Tobacco: Never Comments Yes Sex and Gender Information Value Date Recorded Sex Assigned at Not on file Legal Sex Female 11:30 PM ENTERPRISE APPLICATION ANALYST Gender Identity Female 11/10/2021 3:09 PM CDT Sexual Orientation Straight 11/10/2021 3: 09 PM CDT COVID-19 Exposure Response Date Recorded In the last month, have you been in contact with someone who was confirmed or suspected to have Coronavirus / COVID-19? No / Unsure 07/21/2020 12:03 PM ENTERPRISE APPLICATION ANALYST documented as of this encounter Progress Notes [...] Referral to Rheumatology placed for further evaluation. RPRISE APPLICATION ANALYST documented in this encounter Plan of Treatment Upcoming Encounters Date Type Department Care Team (Late st Contact Info) Description 09/25/2024 11:30 AM ENTERPRISE APPLICATION ANALYST Appointment [facility] [facility] [place] [address] Roberta Alex MD [address] [place] [address] 09/25/2024 11:40 AM ENTERPRISE APPLICATION ANALYST Office Visit [facility] [place] [place] [address] Roberta Alex MD [address] [place] [phone] documented as of this encounter Visit Diagnoses Not on filedocumented in this encounter Care Teams Religion Instructor Relationship Specialty Start Date End Date Alejandro Blevins MD PCP - General FAMILY PRACTICE 12/10/19 documented as of this encounter
--- OUTSIDE RECORDS SUMMARY | 2024-07-11 10:01 | XMS_ITS | Encounter Summary ---
Author Organization [facility] Address [address] [place] [address]. [place], [place] [address] [place] [address] Care Team Providers Care Lime Plant Operator Name Role Phone Alejandro Blevins MD Primary Care Provider [phone] Encounter Details Date Type Department Care Team (Latest Contact Info) Description 08/12/2020 Travel Social History Tobacco Use Types Packs/Day Years Used Date Smoking Tobacco: Former Smokeless Tobacco: Current Comments Yes Sex and Gender Information Value Date Recorded Sex Assigned at Not on file Legal Sex Female 11:30 PM SPANISH LITERATURE PROFESSOR Gender Identity Female 11/10/2021 3:09 PM CDT Sexual Orientation Straight 11/10/2021 3: 09 PM CDT COVID-19 Exposure Response Date Recorded In the last month, have you been in contact with someone who was confirmed or suspected to have Coronavirus / COVID-19? No / Unsure 08/12/2020 3:39 PM SPANISH LITERATURE PROFESSOR documented as of this encounter Functional Status * RETIRED Are you deaf or do you have serious difficulty hearing Answer Date of Assessment Author Status No 07/30/2020 10:48 PM SPANISH LITERATURE PROFESSOR Acti ve * RETIRED Are you blind or do you have serious difficulty seeing, even when wearing glasses? Answer Date of Assessment Author Status No 07/30/2020 10:46 PM SPANISH LITERATURE PROFESSOR Acti ve * Do you have serious difficulty walking or climbing stairs? Answer Date of Assessment Author Status No 07/30/2020 10:46 PM SPANISH LITERATURE PROFESSOR Nella Le RN Active * Do you have difficulty dressing or bathing? Answer Date of Assessment Author Status No 07/30/2020 10:46 PM SPANISH LITERATURE PROFESSOR Nella Le RN Active * Because [...] st Contact Info) Description 09/25/2024 11:30 AM SPANISH LITERATURE PROFESSOR Appointment [place] [address] [facility] [address] Roberta Alex MD [address] [place] [address] 09/25/2024 11:40 AM SPANISH LITERATURE PROFESSOR Office Visit [facility] [place] [address] Roberta Alex MD [address] [place] [phone] documented as of this encounter Visit Diagnoses Not on filedocumented in this encounter Care Teams Lime Plant Operator Relationship Specialty Start Date End Date Alejandro Blevins MD PCP - General FAMILY PRACTICE 12/10/19 documented as of this encounter
--- OUTSIDE RECORDS SUMMARY | 2024-07-11 10:01 | XMS_ITS | Encounter Summary ---
Author Organization [facility] Address [address] [place] [address]. [place] [address] [place] [address] Care Team Providers Care Health Promotion Coordinator Name Role Phone Alejandro Blevins MD Primary Care Provider [phone] Reason for Visit * Reason Comments Follow Up Lab Results Encounter Details Date Type Department Care Team (Late st Contact Info) Description 08/12/2020 3:40 PM AGENCY SALES REPRESENTATIVE Office Visit [address] [place] [address] Rboerta Alex MD [address] [place] [address] Follow Up; Lab Results Social History Tobacco Use Types Packs/Day Years Used Date Smoking Tobacco: Former Smokeless Tobacco: Current Comments Yes Sex and Gender Information Value Date Recorded Sex Assigned at Not on file Legal Sex Female 11:30 PM AGENCY SALES REPRESENTATIVE Gender Identity Female 11/10/2021 3:09 PM CDT Sexual Orientation Straight 11/10/2021 3: 09 PM CDT COVID-19 Exposure Response Date Recorded In the last month, have you been in contact with someone who was confirmed or suspected to have Coronavirus / COVID-19? No / Unsure 08/12/2020 3:39 PM AGENCY SALES REPRESENTATIVE documented as of this encounter Last Filed Vital Signs Vital Sign Reading Time Taken Comments Blood Pressure 100/68 08/12/2020 4:03 PM AGENCY SALES REPRESENTATIVE Pulse 93 08/12/2020 4:03 PM AGENCY SALES REPRESENTATIVE Temperature 36.2 ??C (97.2 ??F) 08/12/2020 4:03 PM CS T Respiratory Rate 24 08/12/2020 4:03 PM AGENCY SALES REPRESENTATIVE Oxygen Saturation - - Inhaled Oxygen Concentration - - Weight 60.5 kg (133 lb 6.1 oz) 08/12/2020 4:03 P M AGENCY SALES REPRESENTATIVE Height 165.1 cm (5' 5 ) 08/12/2020 4:03 PM AGENCY SALES REPRESENTATIVE Body Mass Index 22.2 08/12/2020 4:03 PM AGENCY SALES REPRESENTATIVE documented in this encounter Functional Status * RETIRED Are you deaf or do you have serious difficulty hearing Answer Date of Assessment Author Status No 07/30/2020 10:48 PM AGENCY SALES REPRESENTATIVE Acti ve * RETIRED Are you blind or do you have serious difficulty seeing, even when wearing glasses? Answer Date of Assessment Author Status No 07/30/2020 10:46 PM AGENCY SALES REPRESENTATIVE Acti ve * Do you have serious difficulty walking or climbing stairs? Answer Date of Assessment Author Status No 07/30/2020 10:46 PM AGENCY SALES REPRESENTATIVE Nella Le RN Active * Do you have difficulty dressing or bathing? Answer Date of Assessment Author Status No 07/30/2020 10:46 PM AGENCY SALES REPRESENTATIVE Nella Le RN Active * Because of a physical, mental, or emotional condition, do you have difficulty doing errands alone such as visiting a doctor's office or shopping? Answer Date of Assessment Author Status No 07/30/2020 10:46 PM AGENCY SALES REPRESENTATIVE Nella Le RN Active documented as [...] deficiency since 11/2019. Initially established care with nd when she was with twins at 20 weeks gestation and had no care. 1. ITP: Previously followed with [facility] ed case manager Dr. Dick Bonilla 5 years ago. - [...] file Gets together: Not on file Attends baptism service: Not on file Active member of [...] on HCV antiviral treatment and follows with [facility] hepatology team. Anticipating improvement in ITP if [...] Roberta Alex MD CC: Alejandro Blevins MD CY SALES REPRESENTATIVE documented in this encounter Plan of Treatment Upcoming Encounters Date Type Department Care Team (Late st Contact Info) Description 09/25/2024 11:30 AM AGENCY SALES REPRESENTATIVE Appointment [facility] [address] [place] [address] Roberta Alex MD [address] [place] [address] 09/25/2024 11:40 AM AGENCY SALES REPRESENTATIVE Office Visit [facility] [address] [place] [address] Roberta Alex MD [address] [place] [address] documented as of this encounter Visit Diagnoses Diagnosis Chronic ITP (idiopathic thrombocytopenia) ([facility]/HCC)- Primary Immune thrombocytopenic purpura Iron deficiency anemia, unspecified iron deficiency anemia type Anti-cardiolipin antibody positive Other and unspecified nonspecific immunological findings Other dietary vitamin B12 deficiency anemia Chronic hepatitis C without hepatic coma ([facility]/HCC) documented in this encounter Care Teams Health Promotion Coordinator Relationship Specialty Start Date End Date Alejandro Blevins MD PCP - General FAMILY PRACTICE 12/10/19 documented as of this encounter
--- OUTSIDE RECORDS SUMMARY | 2024-07-11 10:01 | XMS_ITS | Encounter Summary ---
Author Organization [facility] Address [address] [place] [address]. [place], [place] [address] [place] [address] Care Team Providers Care Pants Cutter Name Role Phone Alejandro Blevins MD Primary Care Provider [phone] Reason for Visit * Reason Onset Date Comments Lab Results 07/30/2020 Encounter Details Date Type Department Care Team (Late st Contact Info) Description 07/30/[address] [place] [address] Kitty Elizondo office mover Results Social History Tobacco Use Types Packs/Day Years Used Date Smoking Tobacco: Former Smokeless Tobacco: Current Comments Yes Sex and Gender Information Value Date Recorded Sex Assigned at Not on file Legal Sex Female 11:30 PM DRAWER IN [place] Gender Identity Female 11/10/2021 3:09 PM CDT Sexual Orientation Straight 11/10/2021 3: 09 PM CDT COVID-19 Exposure Response Date Recorded In the last month, have you been in contact with someone who was confirmed or suspected to have Coronavirus / COVID-19? No / Unsure 07/29/2020 10:35 AM DRAWER IN [place] documented as of this encounter Progress Notes * Kitty Elizondo RN - 07/30/2020 10:13 AM CST Patient advised to go to ED for admission to hospital for IVIG administration and platelet transfusion. Notified Clare in ED that patient would be coming in and Dr. Alex to call ED attending. ER IN [place] documented in this encounter Plan of Treatment Upcoming Encounters Date Type Department Care Team (Late st Contact Info) Description 09/25/2024 11:30 AM DRAWER IN [place] Appointment [facility] [place] [address] Roberta Alex MD [address] [place] [address] 09/25/2024 11:40 AM DRAWER IN [place] Office Visit [facility] [place] [address] Roberta Alex MD [address] [place] [address] documented as of this encounter Visit Diagnoses Not on filedocumented in this encounter Care Teams Pants Cutter Relationship Specialty Start Date End Date Alejandro Blevins MD PCP - General FAMILY PRACTICE 12/10/19 documented as of this encounter
--- OUTSIDE RECORDS SUMMARY | 2024-07-11 10:01 | XMS_ITS | Encounter Summary ---
Author Organization [facility] Address [address] [place] [address]. [place] [address] [place] [address] Care Team Providers Care Car Dryer Name Role Phone Alejandro Blevins MD Primary Care Provider Encounter Details Date Type Department Care Team (Latest Contact Info) Description 08/26/2020 9:25 AM RV BODY MECHANIC - 08/26/2020 11:59 PM RV BODY MECHANIC Hospital Encounter [address] [place] [address] Roberta Alex MD [address] [place] [address] Discharge Disposition: Home or Self Care (Routine Discharge) Social History Tobacco Use Types Packs/Day Years Used Date Smoking Tobacco: Former Smokeless Tobacco: Current Comments Yes Sex and Gender Information Value Date Recorded Sex Assigned at Not on file Legal Sex Female 11:30 PM RV BODY MECHANIC Gender Identity Female 11/10/2021 3:09 PM CDT Sexual Orientation Straight 11/10/2021 3: 09 PM CDT COVID-19 Exposure Response Date Recorded In the last month, have you been in contact with someone who was confirmed or suspected to have Coronavirus / COVID-19? No / Unsure 08/26/2020 9:23 AM RV BODY MECHANIC documented as of this encounter Functional Status * RETIRED Are you deaf or do you have serious difficulty hearing Answer Date of Assessment Author Status No 07/30/2020 10:48 PM RV BODY MECHANIC Acti ve * RETIRED Are you blind or do you have serious difficulty seeing, even when wearing glasses? Answer Date of Assessment Author Status No 07/30/2020 10:46 PM RV BODY MECHANIC Acti ve * Do you have [...] 10 mg tabletIndications :Chronic ITP (idiopathic thrombocytopenia) ([facility]) Take 5 tablets (50 mg total) by [...] st Contact Info) Description 09/25/2024 11:30 AM RV BODY MECHANIC Appointment [facility] [address] [facility] [place] [address] Roberta Alex MD [address] [place] [address] 09/25/2024 11:40 AM RV BODY MECHANIC Office Visit [facility] [facility] [place] [address] Roberta Alex MD [address] [place] [address] documented as of this encounter Procedures Procedure Name Priority Date/Time Associated Diagnosis Comments CBC W/DIFF AUTOMATED Routine 08/26/2020 9:30 AM RV BODY MECHANIC Chronic ITP (idiopathic thrombocytopenia) ([facility]/HCC) Anemia documented in this encounter Results * (ABNORMAL) CBC W/DIFF AUTOMATED (08/26/2020 9:30 AM RV BODY MECHANIC) WBC 7.6 4.5 - 10.8 x10'3/uL 08/26/2020 10:10 AM [facility] RBC 4.81 4.10 - 5.40 x10'6/uL 08/26/2020 10:10 AM [facility] HGB 13.2 12.0 - 16.0 G/DL 08/26/2020 10:10 AM [facility] HCT 42.4 36.0 - 47.0 % 08/26/2020 10:10 AM [facility] MCV 88.1 78.0 - 100.0 FL 08/26/2020 10:10 AM [facility] MCH 27.4 27.0 - 31.0 PG 08/26/2020 10:10 AM [facility] MCHC 31.1(L) 33.0 - 36.0 G/DL 08/26/2020 10:10 AM [facility] RDW 13.8 11.5 - 14.5 % 08/26/2020 10:10 AM [facility] PLT 49(L) 150 - 350 x10'3/uL 08/26/2020 10:10 AM [facility] MPV RESULTS NOT AVAILABLE 7.4 - 10.4 FL 08/26/2020 10:10 AM [facility] DIFFERENTIAL COMMENT NORMAL REFERENCE RANGE NOT ESTABLISHED FOR THE PROPORTIONAL LEUKOCYTE DIFFERENTIAL. 08/26/2020 10:10 AM RV BODY MECHANIC [facility] PLT MORPH. DECREASED 08/26/2020 10:10 AM RV BODY MECHANIC [facility] RBC MORPHOLOGY 1+ 08/26/2020 10:10 AM RV BODY MECHANIC [facility] Comment:ANISOCYTOSIS 08/26/2020 9:30 AM RV BODY MECHANIC Roberta Alex MD LABORATORY Final Result [facility] [address] [place] [address], documented in this encounter Visit Diagnoses Diagnosis Chronic ITP (idiopathic thrombocytopenia) ([facility]) Immune thrombocytopenic purpura Anemia Anemia, unspecified documented in this encounter Care Teams Car Dryer Relationship Specialty Start Date End Date Alejandro Blevins MD PCP - General FAMILY PRACTICE 12/10/19 documented as of this encounter
--- OUTSIDE RECORDS SUMMARY | 2024-07-11 10:01 | XMS_ITS | Encounter Summary ---
Author Organization [facility] Address [facility] [facility] [place] [address] [place] [address] Care Team Providers Care Insurance Follow Up Specialist Name Role Phone Alejandro Blevins MD Primary Care Provider [phone] Reason for Visit * Reason Comments Injection * Injection (Routine) - Closed Specialty Diagnoses / Procedures Referred By Contac t Referred To Contact Diagnoses Chronic ITP (idiopathic thrombocytopenia) ([facility]/HCC [facility]) Misc Procedures ROMIPLOSTIM INJECTION [place] [facility]INJECTION Roberta Alex MD Phone: tel: fax: [address] [place] [address] Phone: tel: Referral ID Status Reason Start Date Expiration Date Visits Re quested Visits Authorized [id number] Closed 08/27/2020 04/10/2021 1 81 Encounter Details Date Type Department Care Team (Latest Contact Info) Description 08/27/2020 2:30 PM ORIENTATION AND MOBILITY INSTRUCTOR - 08/27/2020 11:59 PM ORIENTATION AND MOBILITY INSTRUCTOR Hospital Encounter [facility] [address] [place] [address] [place] [address] Roberta Alex MD [address] [place] [address] Injection Discharge Disposition: Home or Self Care (Routine Discharge) Social History Tobacco Use Types Packs/Day Years Used Date Smoking Tobacco: Former Smokeless Tobacco: Current Comments Yes Sex and Gender Information Value Date Recorded Sex Assigned at Not on file Legal Sex Female 11:30 PM ORIENTATION AND MOBILITY INSTRUCTOR Gender Identity Female 11/10/2021 3:09 PM CDT Sexual Orientation Straight 11/10/2021 3: 09 PM CDT COVID-19 Exposure Response Date Recorded In the last month, have you been in contact with someone who was confirmed or suspected to have Coronavirus / COVID-19? No / Unsure 08/27/2020 2:51 PM ORIENTATION AND MOBILITY INSTRUCTOR documented as of this encounter Last Filed Vital Signs Vital Sign Reading Time Taken Comments Blood Pressure 107/59 08/27/2020 2:58 PM ORIENTATION AND MOBILITY INSTRUCTOR Pulse 91 08/27/2020 2:58 PM ORIENTATION AND MOBILITY INSTRUCTOR Temperature - - Respiratory Rate 16 08/27/2020 2:58 PM ORIENTATION AND MOBILITY INSTRUCTOR Oxygen Saturation 99% 08/27/2020 2:58 PM ORIENTATION AND MOBILITY INSTRUCTOR Inhaled Oxygen Concentration - - Weight 63.1 kg (139 lb 1.8 oz) 08/27/2020 2:58 P M ORIENTATION AND MOBILITY INSTRUCTOR Height - - Body Mass Index 23.15 08/12/2020 4:03 PM ORIENTATION AND MOBILITY INSTRUCTOR documented in this encounter Functional Status * RETIRED Are you deaf or do you have serious difficulty hearing Answer Date of Assessment Author Status No 07/30/2020 10:48 PM ORIENTATION AND MOBILITY INSTRUCTOR Acti ve * RETIRED Are you blind or do you have serious difficulty seeing, even when wearing glasses? Answer Date of Assessment Author Status No 07/30/2020 10:46 PM ORIENTATION AND MOBILITY INSTRUCTOR Acti ve * Do you have serious difficulty walking or climbing stairs? Answer Date of Assessment Author Status No 07/30/2020 10:46 PM ORIENTATION AND MOBILITY INSTRUCTOR Nella Le RN Active * Do you have difficulty dressing or bathing? Answer Date of Assessment Author Status No 07/30/2020 10:46 PM ORIENTATION AND MOBILITY INSTRUCTOR Nella Le RN Active * Because [...] mg tabletIndications :Chronic ITP (idiopathic thrombocytopenia) ([facility]/HCC) Take 5 tablets (50 mg total) by [...] AM Actions taken: Charge Capture section accepted NTATION AND MOBILITY INSTRUCTOR * Socorro Kenyon RN - 08/27/2020 2:30 [...] be free from signs/symptoms of physical injury NTATION AND MOBILITY INSTRUCTOR documented in this encounter Plan of Treatment Upcoming Encounters Date Type Department Care Team (Late st Contact Info) Description 09/25/2024 11:30 AM ORIENTATION AND MOBILITY INSTRUCTOR Appointment [facility] [facility] [place] [address] Roberta Alex MD [address] [place] [address] 09/25/2024 11:40 AM ORIENTATION AND MOBILITY INSTRUCTOR Office Visit [facility] [address] [place] [address] Roberta Alex MD [address] [place] [address] documented as of this encounter Visit Diagnoses Diagnosis Chronic ITP (idiopathic thrombocytopenia) ([facility]/HCC)- Primary Immune thrombocytopenic purpura documented in this encounter Administered Medications Inactive Administered Medications - up to 3 most recent administrations Medication Order MAR Action Action Date Dose Rate Site romiPLOStim (NPLATE) injection 60 mcg 60 mcg, Subcutaneous, Once, 1 dose, On Tue08/27/20 at 1545, Maximum dose: 10 mcg/kg/week. Given 08/27/2020 3:25 PM ORIENTATION AND MOBILITY INSTRUCTOR 60 mcg Left Arm documented in this encounter Care Teams Insurance Follow Up Specialist Relationship Specialty Start Date End Date Alejandro Blevins MD PCP - General FAMILY PRACTICE 12/10/19 documented as of this encounter
--- OUTSIDE RECORDS SUMMARY | 2024-07-11 10:01 | XMS_ITS | Encounter Summary ---
Author Organization [facility] Address [facility] [facility] [place] [address] [place] [address] Care Team Providers Care Marine Architect Name Role Phone Alejandro Blevins MD Primary Care Provider [phone] Encounter Details Date Type Department Care Team (Latest Contact Info) Description 09/26/2020 1:05 PM UNIT SUPPORT REPRESENTATIVE - 09/26/2020 11:59 PM UNIT SUPPORT REPRESENTATIVE Hospital Encounter [address] [place] [address] Roberta Alex MD [address] [place] [address] Discharge Disposition: Home or Self Care (Routine Discharge) Social History Tobacco Use Types Packs/Day Years Used Date Smoking Tobacco: Former Smokeless Tobacco: Current Comments Yes Sex and Gender Information Value Date Recorded Sex Assigned at Not on file Legal Sex Female 11:30 PM UNIT SUPPORT REPRESENTATIVE Gender Identity Female 11/10/2021 3:09 PM CDT Sexual Orientation Straight 11/10/2021 3 :09 PM CDT COVID-19 Exposure Response Date Recorded In the last month, have you been in contact with someone who was confirmed or suspected to have Coronavirus / COVID-19? No / Unsure 09/26/2020 1:05 PM UNIT SUPPORT REPRESENTATIVE documented as of this encounter Functional Status * RETIRED Are you deaf or do you have serious difficulty hearing Answer Date of Assessment Author Status No 07/30/2020 10:48 PM UNIT SUPPORT REPRESENTATIVE Acti ve * RETIRED Are you blind or do you have serious difficulty seeing, even when wearing glasses? Answer Date of Assessment Author Status No 07/30/2020 10:46 PM UNIT SUPPORT REPRESENTATIVE Acti ve * Do you have serious difficulty walking or climbing stairs? Answer Date of Assessment Author Status No 07/30/2020 10:46 PM UNIT SUPPORT REPRESENTATIVE Nella Le RN Active * Do you have difficulty dressing or bathing? Answer Date of Assessment Author Status No 07/30/2020 10:46 PM UNIT SUPPORT REPRESENTATIVE Nella Le RN Active * Because of a physical, mental, or emotional condition, do you have difficulty doing errands alone such as visiting a doctor's office or shopping? Answer Date of Assessment Author Status No 07/30/2020 10:46 PM UNIT SUPPORT REPRESENTATIVE Nella Le RN Active documented as of this encounter Mental Status * Because of a physical, mental, or emotional condition, do you have serious difficulty concentrating, remembering, or making decisions? Answer Entry Date Author Status No 07/30/2020 10:46 PM UNIT SUPPORT REPRESENTATIVE Nella Le RN Active documented in this encounter Medications at Time of Discharge Sofosbuvir-Velpat asvir 400-100 MG Tab Take 1 tablet by mouth daily. 06/17/2020 01/06/2021 documented as of this encounter Plan of Treatment Upcoming Encounters Date Type Department Care Team (Late st Contact Info) Description 09/25/2024 11:30 AM UNIT SUPPORT REPRESENTATIVE Appointment [facility] [address] [place] [address] Roberta Alex MD [address] [place] [address] 09/25/2024 11:40 AM UNIT SUPPORT REPRESENTATIVE Office Visit [facility] [address] [place] [address] Roberta Alex MD [address] [place] [address] documented as of this encounter Procedures Procedure Name Priority Date/Time Associated Diagnosis Comments CBC W/DIFF AUTOMATED Routine 09/26/2020 1:14 PM UNIT SUPPORT REPRESENTATIVE Thrombocytopenia documented in this encounter Results * (ABNORMAL) CBC W/DIFF AUTOMATED (09/26/2020 1:14 PM UNIT SUPPORT REPRESENTATIVE) WBC 14.3(H) 4.5 - 10.8 x10'3/uL 09/26/2020 1:33 PM [facility] RBC 4.44 4.10 - 5.40 x10'6/uL 09/26/2020 1:33 PM [facility] HGB 11.7(L) 12.0 - 16.0 G/DL 09/26/2020 1:33 PM [facility] HCT 37.9 36.0 - 47.0 % 09/26/2020 1:33 PM [facility] MCV 85.4 78.0 - 100.0 FL 09/26/2020 1:33 PM [facility] MCH 26.4(L) 27.0 - 31.0 PG 09/26/2020 1:33 PM [facility] MCHC 30.9(L) 33.0 - 36.0 G/DL 09/26/2020 1:33 PM [facility] RDW 13.7 11.5 - 14.5 % 09/26/2020 1:33 PM [facility] PLT 60(L) 150 - 350 x10'3/uL 09/26/2020 1:33 PM [facility] MPV RESULTS NOT AVAILABLE 7.4 - 10.4 FL 09/26/2020 1:33 PM [facility] DIFFERENTIAL COMMENT NORMAL REFERENCE RANGE NOT ESTABLISHED FOR THE PROPORTIONAL LEUKOCYTE DIFFERENTIAL. 09/26/2020 1:33 PM [facility] SEG NEUTROPHILS 82.2 % 1:53 PM [facility] LYMPHOCYTES 11.7 % 09/26/2020 1:53 PM [facility] MONOCYTES 4.0 % 09/26/2020 1:53 PM [facility] EOSINOPHILS 1.3 % 09/26/2020 1:53 PM [facility] BASOPHILS 0.4 % 09/26/2020 1:53 PM [facility] IMMATURE GRANS % 0.4 % 09/27/19 21 1:53 PM UNIT SUPPORT REPRESENTATIVE [facility] NRBC 0.0 % 09/26/2020 1:53 PM UNIT SUPPORT REPRESENTATIVE [facility] ABS. NEUTROPHILS 11.75(H) 1.60 - 8.30 x10'3/uL 09/26/2020 1:53 PM UNIT SUPPORT REPRESENTATIVE [facility] ABS. LYMPHOCYTES 1.67 0.80 - 4.70 x10'3/uL 09/26/2020 1:53 PM UNIT SUPPORT REPRESENTATIVE [facility] ABS. MONOCYTES 0.57 0.00 - 1.50 x10'3/uL 09/26/2020 1:53 PM UNIT SUPPORT REPRESENTATIVE [facility] ABS. EOSINOPHILS 0.19 0.00 - 0.40 x10'3/uL 09/26/2020 1:53 PM UNIT SUPPORT REPRESENTATIVE [facility] ABS. BASOPHILS 0.06 0.00 - 0.20 x10'3/uL 09/26/2020 1:53 PM UNIT SUPPORT REPRESENTATIVE [facility] ABS. IMMATURE GRANULOCYTES 0.06(H) 0.00 - 0.03 x10'3/uL 09/26/2020 1:53 PM UNIT SUPPORT REPRESENTATIVE [facility] ABS. NUCLEATED RBC'S 0.00 0.00 x10'3/uL 09/26/2020 1:53 PM UNIT SUPPORT REPRESENTATIVE [facility] PLT MORPH. DECREASED 09/26/2020 1:53 PM UNIT SUPPORT REPRESENTATIVE [facility] RBC MORPHOLOGY NORMAL 09/26/2020 1:53 PM UNIT SUPPORT REPRESENTATIVE [facility] 09/26/2020 1:14 PM UNIT SUPPORT REPRESENTATIVE us Roberta Alex MD LABORATORY Final Result [facility] [address] [place] [address], documented in this encounter Visit Diagnoses Diagnosis Thrombocytopenia (CMS/HCC) Thrombocytopenia, unspecified documented in this encounter Care Teams Marine Architect Relationship Specialty Start Date End Date Alejandro Blevins MD PCP - General FAMILY PRACTICE 12/10/19 documented as of this encounter
--- OUTSIDE RECORDS SUMMARY | 2024-07-11 10:01 | XMS_ITS | Encounter Summary ---
Author Organization [facility] Address [address] [place] [address]. [place], [place] [address] [place] [address] Care Team Providers Care Flight Information Expediter Name Role Phone Alejandro Blevins MD Primary Care Provider [phone] Encounter Details Date Type Department Care Team (Latest Contact Info) Description 10/08/2020 Travel Social History Tobacco Use Types Packs/Day Years Used Date Smoking Tobacco: Former Smokeless Tobacco: Current Comments Yes Sex and Gender Information Value Date Recorded Sex Assigned at Not on file Legal Sex Female 11:30 PM CONCIERGE RECEPTIONIST Gender Identity Female 11/10/2021 3:09 PM [...] Assessment Author Status No 07/30/2020 10:48 PM CONCIERGE RECEPTIONIST Acti ve * RETIRED Are you blind or do you have serious difficulty seeing, even when wearing glasses? Answer Date of Assessment Author Status No 07/30/2020 10:46 PM CONCIERGE RECEPTIONIST Acti ve * Do you have serious difficulty walking or climbing stairs? Answer Date of Assessment Author Status No 07/30/2020 10:46 PM CONCIERGE RECEPTIONIST Nella Le RN Active * Do you [...] st Contact Info) Description 09/25/2024 11:30 AM CONCIERGE RECEPTIONIST Appointment [place] [id number] [facility] [place] [address] Roberta Alex MD [address] [place] [address] 09/25/2024 11:40 AM CONCIERGE RECEPTIONIST Office Visit [facility] [place] [address] Roberta Alex MD [address] [place] [address] [id number] documented as of this encounter Visit Diagnoses Not on filedocumented in this encounter Care Teams Flight Information Expediter Relationship Specialty Start Date End Date Alejandro Blevins MD PCP - General FAMILY PRACTICE 12/10/19 documented as of this encounter
--- OUTSIDE RECORDS SUMMARY | 2024-07-11 10:01 | XMS_ITS | Encounter Summary ---
Author Organization [facility] Address [address] [place] [address]. [place] [address] [place] [address] Care Team Providers Care Manager Building Name Role Phone Alejandro Blevins MD Primary Care Provider [phone] Reason for Visit * Reason Onset Date Comments Appointment Request 08/26/2020 Encounter Details Date Type Department Care Team (Late st Contact Info) Description 08/26/2020 Telephone [facility] [address] [place] [address] [place] [address] Socorro Kenyon RN Appointment Request Social History Tobacco Use Types Packs/Day Years Used Date Smoking Tobacco: Former Smokeless Tobacco: Current Comments Yes Sex and Gender Information Value Date Recorded Sex Assigned at Not on file Legal Sex Female 11:30 PM AUTOMOTIVE INTERNET SALES MANAGER Gender Identity Female 11/10/2021 3:09 PM CDT Sexual Orientation Straight 11/10/2021 3: 09 PM CDT COVID-19 Exposure Response Date Recorded In the last month, have you been in contact with someone who was confirmed or suspected to have Coronavirus / COVID-19? No / Unsure 08/26/2020 9:23 AM AUTOMOTIVE INTERNET SALES MANAGER documented as of this encounter Functional Status * RETIRED Are you deaf or do you have serious difficulty hearing Answer Date of Assessment Author Status No 07/30/2020 10:48 PM AUTOMOTIVE INTERNET SALES MANAGER Acti ve * RETIRED Are you blind or do you have serious difficulty seeing, even when wearing glasses? Answer Date of Assessment Author Status No 07/30/2020 10:46 PM AUTOMOTIVE INTERNET SALES MANAGER Acti ve * Do you have serious difficulty walking or climbing stairs? Answer Date of Assessment Author Status No 07/30/2020 10:46 PM AUTOMOTIVE INTERNET SALES MANAGER Nella Le RN Active * Do you have difficulty dressing or bathing? Answer Date of Assessment Author Status No 07/30/2020 10:46 PM AUTOMOTIVE INTERNET SALES MANAGER Nella Le RN Active * Because of a physical, mental, or emotional condition, do you have difficulty doing errands alone such as visiting a doctor's office or shopping? Answer Date of Assessment Author Status No 07/30/2020 10:46 PM AUTOMOTIVE INTERNET SALES MANAGER Nella Le RN Active documented as of this encounter Mental Status * Because of a physical, mental, or emotional condition, do you have serious difficulty concentrating, remembering, or making decisions? Answer Entry Date Author Status No 07/30/2020 10:46 PM AUTOMOTIVE INTERNET SALES MANAGER Nella Le RN Active documented in this encounter Plan of Treatment Upcoming Encounters Date Type Department Care Team (Late st Contact Info) Description 09/25/2024 11:30 AM AUTOMOTIVE INTERNET SALES MANAGER Appointment [facility] [address] [place] [address] Roberta Alex MD [address] [place] [address] [phone] 09/25/2024 11:40 AM AUTOMOTIVE INTERNET SALES MANAGER Office Visit [facility] [place] [address] Roberta Alex MD [address] [place] [address] documented as of this encounter Visit Diagnoses Not on filedocumented in this encounter Care Teams Manager Building Relationship Specialty Start Date End Date Alejandro Blevins MD PCP - General FAMILY PRACTICE 12/10/19 documented as of this encounter
--- OUTSIDE RECORDS SUMMARY | 2024-07-11 10:01 | XMS_ITS | Encounter Summary ---
Author Organization [facility] Address [address] [place] [address]. [place] [address] [place] [address] Care Team Providers Care Heel Seat Trimmer Name Role Phone Alejandro Blevins MD Primary Care Provider [phone] Encounter Details Date Type Department Care Team (Latest Contact Info) Description 10/08/2020 8:35 AM CDT - 10/08/2020 11:59 PM CDT Hospital Encounter [address] [place] [address] Roberta Alex MD [address] [place] [address] Discharge Disposition: Home or Self Care (Routine Discharge) Social History Tobacco Use Types Packs/Day Years Used Date Smoking Tobacco: Former Smokeless Tobacco: Current Comments Yes Sex and Gender Information Value Date Recorded Sex Assigned at Not on file Legal Sex Female 11:30 PM FLIGHT ENGINEER HELICOPTER Gender Identity Female 11/10/2021 3:09 PM CDT [...] Author Status No 07/30/2020 10:48 PM FLIGHT ENGINEER HELICOPTER Acti ve * RETIRED Are you blind or do you have serious difficulty seeing, even when wearing glasses? Answer Date of Assessment Author Status No 07/30/2020 10:46 PM FLIGHT ENGINEER HELICOPTER Acti ve * Do you have serious [...] Contact Info) Description 09/25/2024 11:30 AM FLIGHT ENGINEER HELICOPTER Appointment [facility] [address] [place] [address] Roberta Alex MD [address] [place] [address] 09/25/2024 11:40 AM FLIGHT ENGINEER HELICOPTER Office Visit [facility] [address] [place] [address] Roberta Alex MD [address] [place] [address] documented as of this encounter Procedures Procedure Name Priority Date/Time Associated Diagnosis Comments CBC W/DIFF AUTOMATED Routine 10/08/2020 8:59 AM CDT Thrombocytopenia documented in this encounter Results * (ABNORMAL) CBC W/DIFF AUTOMATED (10/08/2020 8:59 AM CDT) WBC 8.9 4.5 - 10.8 x10'3/uL 10/08/2020 9:26 AM CDT [facility] RBC 4.05(L) 4.10 - 5.40 x10'6/uL 10/08/2020 9:26 AM CDT [facility] HGB 10.2(L) 12.0 - 16.0 G/DL 10/08/2020 9:26 AM CDT [facility] HCT 33.7(L) 36.0 - 47.0 % 10/08/2020 9:26 AM CDT [facility] MCV 83.2 78.0 - 100.0 FL 10/08/2020 9:26 AM CDT [facility] MCH 25.2(L) 27.0 - 31.0 PG 10/08/2020 9:26 AM CDT [facility] MCHC 30.3(L) 33.0 - 36.0 G/DL 10/08/2020 9:26 AM CDT [facility] RDW 14.1 11.5 - 14.5 % 10/08/2020 9:26 AM CDT [facility] PLT 125(L) 150 - 350 x10'3/uL 10/08/2020 9:26 AM CDT [facility] MPV 13.8(H) 7.4 - 10.4 FL 10/08/2020 9:26 AM CDT [facility] DIFFERENTIAL COMMENT NORMAL REFERENCE RANGE NOT ESTABLISHED FOR THE PROPORTIONAL LEUKOCYTE DIFFERENTIAL. 10/08/2020 9:26 AM CDT [facility] SEG NEUTROPHILS 67.2 % 9:26 AM CDT [facility] LYMPHOCYTES 22.3 % 10/08/2020 9:26 AM CDT [facility] MONOCYTES 6.4 % 10/08/2020 9:26 AM CDT [facility] EOSINOPHILS 2.9 % 10/08/2020 9:26 AM CDT [facility] BASOPHILS 0.9 % 10/08/2020 9:26 AM CDT [facility] IMMATURE GRANS % 0.3 % 10/09/19 9:26 AM CDT [facility] NRBC 0.0 % 10/08/2020 9:26 AM CDT [facility] ABS. NEUTROPHILS 6.01 1.60 - 8.30 x10'3/uL 10/08/2020 9:26 AM CDT [facility] ABS. LYMPHOCYTES 1.99 0.80 - 4.70 x10'3/uL 10/08/2020 9:26 AM CDT [facility] ABS. MONOCYTES 0.57 0.00 - 1.50 x10'3/uL 10/08/2020 9:26 AM CDT [facility] ABS. EOSINOPHILS 0.26 0.00 - 0.40 x10'3/uL 10/08/2020 9:26 AM CDT [facility] ABS. BASOPHILS 0.08 0.00 - 0.20 x10'3/uL 10/08/2020 9:26 AM CDT [facility] ABS. IMMATURE GRANULOCYTES 0.03 0.00 - 0.03 x10'3/uL 10/08/2020 9:26 AM CDT [facility] ABS. NUCLEATED RBC'S 0.00 0.00 x10'3/uL 10/08/2020 9:26 AM CDT [facility] 10/08/2020 8:59 AM CDT us Roberta Alxe MD LABORATORY Final Result [facility] [address] [place] [address], documented in this encounter Visit Diagnoses Diagnosis Thrombocytopenia (CMS/HCC) Thrombocytopenia, unspecified documented in this encounter Care Teams Heel Seat Trimmer Relationship Specialty Start Date End Date Alejandro Blevins MD PCP - General FAMILY PRACTICE 12/10/19 documented as of this encounter
--- OUTSIDE RECORDS SUMMARY | 2024-07-11 10:01 | XMS_ITS | Encounter Summary ---
Author Organization [facility] Address [address] [place] [address]. [place] [address] [place] [address] Care Team Providers Care Sergeant Missile Crewman Name Role Phone Alejandro Blevins MD Primary Care Provider [phone] Encounter Details Date Type Department Care Team (Latest Contact Info) Description 12/30/2020 3:35 PM CDT - 12/30/2020 11:59 PM CDT Hospital Encounter [address] [place] [address] Roberta Alex MD [address] [place] [address] Discharge Disposition: Home or Self Care (Routine Discharge) Social History Tobacco Use Types Packs/Day Years Used Date Smoking Tobacco: Former Smokeless Tobacco: Current Comments Yes Sex and Gender Information Value Date Recorded Sex Assigned at Not on file Legal Sex Female 11:30 PM LENS GAUGER Gender Identity Female 11/10/2021 3:09 PM CDT [...] Author Status No 07/30/2020 10:48 PM LENS GAUGER Acti ve * RETIRED Are you blind or do you have serious difficulty seeing, even when wearing glasses? Answer Date of Assessment Author Status No 07/30/2020 10:46 PM LENS GAUGER Acti ve * Do you have serious [...] Contact Info) Description 09/25/2024 11:30 AM LENS GAUGER Appointment [facility] [address] [place] [address] Roberta Alex MD [address] [place] [address] 09/25/2024 11:40 AM LENS GAUGER Office Visit [facility] [address] [place] [address] Roberta Alex MD [address] [place] [address] documented as of this encounter Procedures Procedure [...] PG/ML 12/31/2020 3:36 PM CDT [facility] 12/30/2020 4:52 PM CDT Roberta Alex MD LABORATORY Final Result [facility] [address] [place] [address], [place] [phone] [id number] * (ABNORMAL) FERRITIN (12/30/2020 4:52 PM CDT) FERRITIN 2.4(L) 8 - 252 NG/ML 12/30/2020 5:25 PM CDT [facility] 12/30/2020 4:52 PM CDT Roberta Alex MD LABORATORY Final Result [facility] [address] [place] [address], * (ABNORMAL) IRON SATURATION PNL (FE/TIBC/SAT) (12/30/2020 4:52 PM CDT) IRON 11(L) 50 - 170 MCG/DL 12/30/2020 5:16 PM CDT [facility] IRON BINDING CAPACITY 428 250 - 450 MCG/DL 12/30/2020 5:16 PM CDT [facility] IRON SATURATION 3 % 5:16 PM CDT [facility] Comment:REFERENCE RANGE NOT ESTABLISHED 12/30/2020 4:52 PM CDT Roberta Alex MD LABORATORY Final Result [facility] [address] [place] [address], * (ABNORMAL) CBC W/DIFF AUTOMATED (12/30/2020 3:58 PM CDT) Pathologist [facility] WBC 8.0 4.5 - 10.8 x10'3/uL 12/30/2020 4:05 PM CDT [facility] RBC 4.47 4.10 - 5.40 x10'6/uL 12/30/2020 4:05 PM CDT [facility] HGB 8.8(L) 12.0 - 16.0 G/DL 12/30/2020 4:05 PM CDT [facility] HCT 31.3(L) 36.0 - 47.0 % 12/30/2020 4:05 PM CDT [facility] MCV 70.0(L) 78.0 - 100.0 FL 12/30/2020 4:05 PM CDT [facility] MCH 19.7(L) 27.0 - 31.0 PG 12/30/2020 4:05 PM CDT [facility] MCHC 28.1(L) 33.0 - 36.0 G/DL 12/30/2020 4:05 PM CDT [facility] RDW 16.3(H) 11.5 - 14.5 % 12/30/2020 4:05 PM CDT [facility] PLT 86(L) 150 - 350 x10'3/uL 12/30/2020 4:05 PM CDT [facility] MPV RESULTS NOT AVAILABLE 7.4 - 10.4 FL 12/30/2020 4:05 PM CDT [facility] DIFFERENTIAL COMMENT NORMAL REFERENCE RANGE NOT ESTABLISHED FOR THE PROPORTIONAL LEUKOCYTE DIFFERENTIAL. 12/30/2020 4:05 PM CDT [facility] SEG NEUTROPHILS 65.6 % 4:21 PM CDT [facility] LYMPHOCYTES 26.0 % 12/30/2020 4:21 PM CDT [facility] MONOCYTES 5.2 % 12/30/2020 4:21 PM CDT [facility] EOSINOPHILS 2.4 % 12/30/2020 4:21 PM CDT [facility] BASOPHILS 0.6 % 12/30/2020 4:21 PM CDT [facility] IMMATURE GRANS % 0.2 % 12/31/19 4:21 PM CDT [facility] NRBC 0.0 % 12/30/2020 4:21 PM CDT [facility] ABS. NEUTROPHILS 5.25 1.60 - 8.30 x10'3/uL 12/30/2020 4:21 PM CDT [facility] ABS. LYMPHOCYTES 2.08 0.80 - 4.70 x10'3/uL 12/30/2020 4:21 PM CDT [facility] ABS. MONOCYTES 0.42 0.00 - 1.50 x10'3/uL 12/30/2020 4:21 PM CDT [facility] ABS. EOSINOPHILS 0.19 0.00 - 0.40 x10'3/uL 12/30/2020 4:21 PM CDT [facility] ABS. BASOPHILS 0.05 0.00 - 0.20 x10'3/uL 12/30/2020 4:21 PM CDT [facility] ABS. IMMATURE GRANULOCYTES 0.02 0.00 - 0.03 x10'3/uL 12/30/2020 4:21 PM CDT [facility] ABS. NUCLEATED RBC'S 0.00 0.00 x10'3/uL 12/30/2020 4:21 PM CDT [facility] PLT MORPH. DECREASED 12/30/2020 4:21 PM CDT [facility] RBC MORPHOLOGY 1+ 12/30/2020 4:21 PM CDT [facility] Comment: HYPOCHROMASIA 1+ ANISOCYTOSIS 1+ POIKILOCYTOSIS 12/30/2020 3:58 PM CDT Roberta Alex MD LABORATORY Final Result [facility] [address] [place] [address], documented in this encounter Visit Diagnoses Diagnosis Thrombocytopenia (CMS/HCC) Thrombocytopenia, unspecified Iron deficiency anemia secondary to inadequate dietary iron intake documented in this encounter Care Teams Sergeant Missile Crewman Relationship Specialty Start Date End Date Alejandro Blevins MD PCP - General FAMILY PRACTICE 12/10/19 documented as of this encounter
--- OUTSIDE RECORDS SUMMARY | 2024-07-11 10:01 | XMS_ITS | Encounter Summary ---
Author Organization [facility] Address [address] [place] [address]. [place], [place] [address] [place] [address] Care Team Providers Care Tick Eradicator Name Role Phone Alejandro Blevins MD Primary Care Provider [phone] Encounter Details Date Type Department Care Team (Latest Contact Info) Description 10/21/2020 Travel Social History Tobacco Use Types Packs/Day Years Used Date Smoking Tobacco: Former Smokeless Tobacco: Current Comments Yes Sex and Gender Information Value Date Recorded Sex Assigned at Not on file Legal Sex Female 11:30 PM FIELD ARTILLERY TARGETING TECHNICIAN Gender Identity Female 11/10/2021 3:09 PM [...] Author Status No 07/30/2020 10:48 PM FIELD ARTILLERY TARGETING TECHNICIAN Acti ve * RETIRED Are you blind or do you have serious difficulty seeing, even when wearing glasses? Answer Date of Assessment Author Status No 07/30/2020 10:46 PM FIELD ARTILLERY TARGETING TECHNICIAN Acti ve * Do you have serious difficulty walking or climbing stairs? Answer Date of Assessment Author Status No 07/30/2020 10:46 PM FIELD ARTILLERY TARGETING TECHNICIAN Nella Le RN Active * Do you have difficulty dressing or bathing? Answer Date of Assessment Author Status No 07/30/2020 10:46 PM FIELD ARTILLERY TARGETING TECHNICIAN Nella Le RN Active * Because [...] Contact Info) Description 09/25/2024 11:30 AM FIELD ARTILLERY TARGETING TECHNICIAN Appointment [place] [id number] [facility] [place] [address] Roberta Alex MD [address] [place] [address] 09/25/2024 11:40 AM FIELD ARTILLERY TARGETING TECHNICIAN Office Visit [facility] [place] [address] Roberta Alex MD [address] [place] [address] [phone] documented as of this encounter Visit Diagnoses Not on filedocumented in this encounter Care Teams Tick Eradicator Relationship Specialty Start Date End Date Alejandro Blevins MD PCP - General FAMILY PRACTICE 12/10/19 documented as of this encounter
--- OUTSIDE RECORDS SUMMARY | 2024-07-11 10:01 | XMS_ITS | Encounter Summary ---
Author Organization [facility] Address [address] [place] [address]. [place], [place] [address] [place] [address] Care Team Providers Care Card Doffer Name Role Phone Alejandro Blevins MD Primary Care Provider [phone] Encounter Details Date Type Department Care Team (Latest Contact Info) Description 08/19/2020 Travel Social History Tobacco Use Types Packs/Day Years Used Date Smoking Tobacco: Former Smokeless Tobacco: Current Comments Yes Sex and Gender Information Value Date Recorded Sex Assigned at Not on file Legal Sex Female 11:30 PM REFERENCE LIBRARY ASSISTANT Gender Identity Female 11/10/2021 3:09 PM CDT Sexual Orientation Straight 11/10/2021 3: 09 PM CDT COVID-19 Exposure Response Date Recorded In the last month, have you been in contact with someone who was confirmed or suspected to have Coronavirus / COVID-19? No / Unsure 08/19/2020 8:37 AM REFERENCE LIBRARY ASSISTANT documented as of this encounter Functional Status * RETIRED Are you deaf or do you have serious difficulty hearing Answer Date of Assessment Author Status No 07/30/2020 10:48 PM REFERENCE LIBRARY ASSISTANT Acti ve * RETIRED Are you blind or do you have serious difficulty seeing, even when wearing glasses? Answer Date of Assessment Author Status No 07/30/2020 10:46 PM REFERENCE LIBRARY ASSISTANT Acti ve * Do you have serious difficulty walking or climbing stairs? Answer Date of Assessment Author Status No 07/30/2020 10:46 PM REFERENCE LIBRARY ASSISTANT Nella Le RN Active * Do you have difficulty dressing or bathing? Answer Date of Assessment Author Status No 07/30/2020 10:46 PM REFERENCE LIBRARY ASSISTANT Nella Le RN Active * Because [...] st Contact Info) Description 09/25/2024 11:30 AM REFERENCE LIBRARY ASSISTANT Appointment [place] [id number] [place] [address] Roberta Alex MD [address] [place] [address] 09/25/2024 11:40 AM REFERENCE LIBRARY ASSISTANT Office Visit [facility] [place] [address] Roberta Alex MD [address] [place] [phone] documented as of this encounter Visit Diagnoses Not on filedocumented in this encounter Care Teams Card Doffer Relationship Specialty Start Date End Date Alejandro Blevins MD PCP - General FAMILY PRACTICE 12/10/19 documented as of this encounter
--- OUTSIDE RECORDS SUMMARY | 2024-07-11 10:01 | XMS_ITS | Encounter Summary ---
Author Organization [facility] Address [address] [place] [address]. [place] [address] [place] [address] Care Team Providers Care Commercial Airplane Pilot Name Role Phone Alejandro Blevins MD Primary Care Provider [phone] Encounter Details Date Type Department Care Team (Latest Contact Info) Description 07/30/2020 9:00 AM BIBLE READER - 07/30/2020 10:18 AM BIBLE READER Hospital Encounter [address] [place] [address] Roberta Alex MD [address] [place], [place] [phone] Discharge Disposition: Home or Self Care (Routine Discharge) Social History Tobacco Use Types Packs/Day Years Used Date Smoking Tobacco: Former Smokeless Tobacco: Current Comments Yes Sex and Gender Information Value Date Recorded Sex Assigned at Not on file Legal Sex Female 11:30 PM BIBLE READER Gender Identity Female 11/10/2021 3:09 PM CDT Sexual Orientation Straight 11/10/2021 3: 09 PM CDT COVID-19 Exposure Response Date Recorded In the last month, have you been in contact with someone who was confirmed or suspected to have Coronavirus / COVID-19? No / Unsure 07/29/2020 10:35 AM BIBLE READER documented as of this encounter Medications at [...] st Contact Info) Description 09/25/2024 11:30 AM BIBLE READER Appointment [facility] [address] [place] [address] Roberta Alex MD [address] [place] [address] [id number] 09/25/2024 11:40 AM BIBLE READER Office Visit [facility] [address] [place] [address] Roberta Alex MD [address] [place], [place] [address] documented as of this encounter Procedures Procedure Name Priority Date/Time Associated Diagnosis Comments CBC W/DIFF AUTOMATED Routine 07/30/2020 9:40 AM BIBLE READER Chronic ITP (idiopathic thrombocytopenia) ([facility]) Anemia documented in this encounter Results * (ABNORMAL) CBC W/DIFF AUTOMATED (07/30/2020 9:40 AM BIBLE READER) WBC 5.2 4.5 - 10.8 x10'3/uL 07/30/2020 9:50 AM BIBLE READER [facility] RBC 4.67 4.10 - 5.40 x10'6/uL 07/30/2020 9:50 AM BIBLE READER [facility] HGB 13.0 12.0 - 16.0 G/DL 07/30/2020 9:50 AM BIBLE READER [facility] HCT 41.9 36.0 - 47.0 % 07/30/2020 9:50 AM BIBLE READER [facility] MCV 89.7 78.0 - 100.0 FL 07/30/2020 9:50 AM BIBLE READER [facility] MCH 27.8 27.0 - 31.0 PG 07/30/2020 9:50 AM [facility] MCHC 31.0(L) 33.0 - 36.0 G/DL 07/30/2020 9:50 AM [facility] RDW 14.0 11.5 - 14.5 % 07/30/2020 9:50 AM [facility] PLT 15(LL) 150 - 350 x10'3/uL 07/30/2020 9:50 AM [facility] Comment: CRITICAL VALUE CALLED TO MARIUM AT 0950 READ BACK AND VERIFIED MPV RESULTS NOT AVAILABLE 7.4 - 10.4 FL 07/30/2020 9:50 AM [facility] DIFFERENTIAL COMMENT NORMAL REFERENCE RANGE NOT ESTABLISHED FOR THE PROPORTIONAL LEUKOCYTE DIFFERENTIAL. 07/30/2020 9:50 AM [facility] SEG NEUTROPHILS 74.9 % 9:57 AM [facility] LYMPHOCYTES 6.4 % 07/30/2020 9:57 AM [facility] MONOCYTES 4.7 % 07/30/2020 9:57 AM [facility] EOSINOPHILS 12.4 % 07/30/2020 9:57 AM [facility] BASOPHILS 1.4 % 07/30/2020 9:57 AM [facility] IMMATURE GRANS % 0.2 % 07/30/19 9:57 AM [facility] NRBC 0.0 % 07/30/2020 9:57 AM [facility] ABS. NEUTROPHILS 3.91 1.60 - 8.30 x10'3/uL 07/30/2020 9:57 AM [facility] ABS. LYMPHOCYTES 0.33(L) 0.80 - 4.70 x10'3/uL 07/30/2020 9:57 AM [facility] ABS. MONOCYTES 0.24 0.00 - 1.50 x10'3/uL 07/30/2020 9:57 AM [facility] ABS. EOSINOPHILS 0.64(H) 0.00 - 0.40 x10'3/uL 07/30/2020 9:57 AM [facility] ABS. BASOPHILS 0.07 0.00 - 0.20 x10'3/uL 07/30/2020 9:57 AM BIBLE READER [facility] ABS. IMMATURE GRANULOCYTES 0.01 0.00 - 0.03 x10'3/uL 07/30/2020 9:57 AM BIBLE READER [facility] ABS. NUCLEATED RBC'S 0.00 0.00 x10'3/uL 07/30/2020 9:57 AM BIBLE READER [facility] PLT MORPH. DECREASED 07/30/2020 9:57 AM BIBLE READER [facility] RBC MORPHOLOGY 1+ 07/30/2020 9:57 AM BIBLE READER [facility] Comment:ANISOCYTOSIS 07/30/2020 9:40 AM BIBLE READER us Roberta Alex MD LABORATORY Final Result [facility] [address] [place] [address], documented in this encounter Visit Diagnoses Diagnosis Chronic ITP (idiopathic thrombocytopenia) ([facility]) Immune thrombocytopenic purpura Anemia Anemia, unspecified documented in this encounter Care Teams Commercial Airplane Pilot Relationship Specialty Start Date End Date Alejandro Blevins MD PCP - General FAMILY PRACTICE 12/10/19 documented as of this encounter
--- OUTSIDE RECORDS SUMMARY | 2024-07-11 10:01 | XMS_ITS | Encounter Summary ---
Author Organization [facility] Address [address] [place] [address]. [place] [address] [place] [address] Care Team Providers Care Counter Helper Name Role Phone Alejandro Blevins MD Primary Care Provider [phone] Encounter Details Date Type Department Care Team (Late st Contact Info) Description 10/10/2020 Orders Only [address] [place] [address] Tejinder Garcia, [facility] Social History Tobacco Use Types Packs/Day Years Used Date Smoking Tobacco: Former Smokeless Tobacco: Current Comments Yes Sex and Gender Information Value Date Recorded Sex Assigned at Not on file Legal Sex Female 11:30 PM ZMT OPERATOR Gender Identity Female 11/10/2021 3:09 PM [...] Assessment Author Status No 07/30/2020 10:48 PM ZMT OPERATOR Acti ve * RETIRED Are you blind or do you have serious difficulty seeing, even when wearing glasses? Answer Date of Assessment Author Status No 07/30/2020 10:46 PM ZMT OPERATOR Acti ve * Do you have serious difficulty walking or climbing stairs? Answer Date of Assessment Author Status No 07/30/2020 10:46 PM ZMT OPERATOR Nella Le RN Active * Do [...] st Contact Info) Description 09/25/2024 11:30 AM ZMT OPERATOR Appointment [facility] [address] [place] [address] Roberta Alex MD [address] [place] [address] 09/25/2024 11:40 AM ZMT OPERATOR Office Visit [facility] [address] [place] [address] Roberta Alex MD [address] [place] [address] documented as of this encounter Visit Diagnoses Not on filedocumented in this encounter Care Teams Counter Helper Relationship Specialty Start Date End Date Alejandro Blevins MD PCP - General FAMILY PRACTICE 12/10/19 documented as of this encounter
--- OUTSIDE RECORDS SUMMARY | 2024-07-11 10:01 | XMS_ITS | Encounter Summary ---
Author Organization [facility] Address [address] [place] [address]. [place] [address] [place] [address] Care Team Providers Care Filling Winder Name Role Phone Alejandro Blevins MD Primary Care Provider [phone] Reason for Visit * Reason Comments Transfusion Encounter Details Date Type Department Care Team (Latest Contact Info) Description 07/29/2020 11:32 AM TOY ELECTRIC TRAIN REPAIRER - 07/29/2020 11:59 PM TOY ELECTRIC TRAIN REPAIRER Hospital Encounter [facility] [address] [place] [address] [place] [address] Roberta Alex MD [address] [place] [address] Transfusion Discharge Disposition: Home or Self Care (Routine Discharge) Social History Tobacco Use Types Packs/Day Years Used Date Smoking Tobacco: Every Day Smokeless Tobacco: Never Comments Yes Sex and Gender Information Value Date Recorded Sex Assigned at Not on file Legal Sex Female 11:30 PM TOY ELECTRIC TRAIN REPAIRER Gender Identity Female 11/10/2021 3:09 PM CDT Sexual Orientation Straight 11/10/2021 3: 09 PM CDT COVID-19 Exposure Response Date Recorded In the last month, have you been in contact with someone who was confirmed or suspected to have Coronavirus / COVID-19? No / Unsure 07/29/2020 10:35 AM TOY ELECTRIC TRAIN REPAIRER documented as of this encounter Last Filed Vital Signs Vital Sign Reading Time Taken Comments Blood Pressure 137/73 07/29/2020 4:50 PM TOY ELECTRIC TRAIN REPAIRER no headache, SOB, chest pain Pulse 73 07/29/2020 4:50 PM TOY ELECTRIC TRAIN REPAIRER Temperature 36.4 ??C (97.5 ??F) 07/29/2020 4 :50 PM TOY ELECTRIC TRAIN REPAIRER Respiratory Rate 20 07/29/2020 4:50 PM TOY ELECTRIC TRAIN REPAIRER Oxygen Saturation 100% 07/29/2020 4:2 0 PM TOY ELECTRIC TRAIN REPAIRER Inhaled Oxygen Concentration - - Weight - - Height - - Body Mass Index - - documented in this encounter Discharge Instructions * Patient Instructions* Kamilah Thompson RN - 07/29/2020 11:45 AM TOY ELECTRIC TRAIN REPAIRER Return tomorrow for a CBC to see response to platelet therapy. IVIG is pending insurance authorization and we will call you. ELECTRIC TRAIN REPAIRER documented in this encounter Medications at Time of Discharge naproxen sodium 220 MG tablet Take 440 mg by mouth 2 (two) times daily with meals. 07/31/2020 Sofosbuvir-Velpat asvir 400-100 MG Tab Take 1 tablet by mouth daily. 06/17/2020 01/06/2021 documented as of this encounter Progress Notes * Kamilah Thompsno RN - 07/29/2020 11:45 AM CST PATIENT [...] GOALS: Patient/S.O. will verbalize understanding of instructions ELECTRIC TRAIN REPAIRER documented in this encounter Plan of Treatment Upcoming Encounters Date Type Department Care Team (Late st Contact Info) Description 09/25/2024 11:30 AM TOY ELECTRIC TRAIN REPAIRER Appointment [facility] [place] [place] [address] Roberta Alex MD [address] [place] [address] 09/25/2024 11:40 AM TOY ELECTRIC TRAIN REPAIRER Office Visit [facility] [address] [facility] [place] [address] Roberta Alex MD [address] [place] [address] documented as of this encounter Procedures Procedure Name Priority Date/Time Associated Diagnosis Comments TRANSFUSE PLATELET PHERESIS Routine 07/29/2020 3:39 PM TOY ELECTRIC TRAIN REPAIRER Chronic ITP (idiopathic thrombocytopenia) ([facility]) HC BLOOD TYPING ABO Routine 07/29/2020 1 1:40 AM TOY ELECTRIC TRAIN REPAIRER Chronic ITP (idiopathic thrombocytopenia) ([facility]) documented in this encounter Results * TRANSFUSE PLATELET PHERESIS (07/29/2020 4:27 PM TOY ELECTRIC TRAIN REPAIRER) Result [facility] Roberta Alex MD NURSING TREATMENT ORDERABLES - BLOOD ADMIN Final Result * TRANSFUSE PLATELET PHERESIS, 1 Units (07/29/2020 4:27 PM TOY ELECTRIC TRAIN REPAIRER) Roberta Alex MD NURSING TREATMENT ORDERABLES - BLOOD ADMIN Final Result * BLOOD TYPING, ABO AND RH (07/29/2020 11:40 AM TOY ELECTRIC TRAIN REPAIRER) ABO/RH A POSITIVE 07/29/2020 12:38 PM TOY ELECTRIC TRAIN REPAIRER [facility] 07/29/2020 11:4 0 AM TOY ELECTRIC TRAIN REPAIRER Roberta Alex MD BLOOD BANK TEST ORDERABLES Fin al Result [facility] [place] [address], * ORDER PLATELET PHERESIS, 1 Units (07/29/2020 11:40 AM TOY ELECTRIC TRAIN REPAIRER) UNITS ORDERED 1 07/29/2020 11:41 AM TOY ELECTRIC TRAIN REPAIRER [facility] BLOOD UNIT NUMBER [id number] 07/29/2020 3:31 PM TOY ELECTRIC TRAIN REPAIRER [facility] PRODUCT: PLT PHERESIS LEUKOPOOR BAG 1 07/29/2020 3:31 PM TOY ELECTRIC TRAIN REPAIRER [facility] UNIT DIVISION 00 07/29/2020 3:31 PM TOY ELECTRIC TRAIN REPAIRER [facility] BLOOD UNIT STATUS TRANSFUSED,FINAL 07/31/2020 12:15 AM TOY ELECTRIC TRAIN REPAIRER [facility] ISSUE DATE/TIME [id number] 021 12:15 AM TOY ELECTRIC TRAIN REPAIRER [facility] PRODUCT CODE [id number] 07/31/2020 12:15 AM TOY ELECTRIC TRAIN REPAIRER [facility] ABO/RH Unit A POS 07/31/2020 12:15 AM TOY ELECTRIC TRAIN REPAIRER [facility] ABO/RH UNIT ISBT CODE [id number] 07/31/2020 12:15 AM TOY ELECTRIC TRAIN REPAIRER [facility] BLOOD UNIT EXPIRATION DATE [id number] 07/31/2020 12:15 AM TOY ELECTRIC TRAIN REPAIRER [facility] TRANSFUSION STATUS OK TO TRANSFUSE 07/29/2020 3:31 PM TOY ELECTRIC TRAIN REPAIRER [facility] 07/29/2020 11:4 0 AM TOY ELECTRIC TRAIN REPAIRER us Roberta Alex MD BLOOD BANK PRODUCT ORDERABLES Final Result [facility] [address] [place] [address], documented in this encounter Visit Diagnoses Diagnosis Chronic ITP (idiopathic thrombocytopenia) ([facility])- Primary Immune thrombocytopenic purpura documented in this encounter Administered Medications Inactive Administered Medications - up to 3 most recent administrations Medication Order MAR Action Action Date Dose Rate Site sodium chloride 0.9% infusion at 10 mL/hr, Intravenous, Continuous, Starting on Tue07/29/20 at 1200, Until Tue07/31/20 at 0049, Infuse at TKO rateIndications:Chronic ITP (idiopathic thrombocytopenia) ([facility]) New Bag 07/29/2020 4:20 PM TOY ELECTRIC TRAIN REPAIRER 250 mLs 450 mL/hr documented in this encounter Care Teams Filling Winder Relationship Specialty Start Date End Date Alejandro Blevins MD PCP - General FAMILY PRACTICE 12/10/19 documented as of this encounter
--- OUTSIDE RECORDS SUMMARY | 2024-07-11 10:01 | XMS_ITS | Encounter Summary ---
Author Organization [facility] Address [address] [place] [address]. [place] [address] [place] [address] Care Team Providers Care Bindery Leadperson Name Role Phone Alejandro Blevins MD Primary Care Provider [phone] Encounter Details Date Type Department Care Team (Late st Contact Info) Description 08/04/2020 Hospital Follow-up Call [facility] [address] [place] [address] Chen Trimble RN Social History Tobacco Use Types Packs/Day Years Used Date Smoking Tobacco: Former Smokeless Tobacco: Current Comments Yes Sex and Gender Information Value Date Recorded Sex Assigned at Not on file Legal Sex Female 11:30 PM GRAPHITE PAN DRIER TENDER Gender Identity Female 11/10/2021 3:09 PM CDT Sexual Orientation Straight 11/10/2021 3: 09 PM CDT COVID-19 Exposure Response Date Recorded In the last month, have you been in contact with someone who was confirmed or suspected to have Coronavirus / COVID-19? No / Unsure 08/07/2020 8:30 AM GRAPHITE PAN DRIER TENDER documented as of this encounter Functional Status * RETIRED Are you deaf or do you have serious difficulty hearing Answer Date of Assessment Author Status No 07/30/2020 10:48 PM GRAPHITE PAN DRIER TENDER Acti ve * RETIRED Are you blind or do you have serious difficulty seeing, even when wearing glasses? Answer Date of Assessment Author Status No 07/30/2020 10:46 PM GRAPHITE PAN DRIER TENDER Acti ve * Do you have serious difficulty walking or climbing stairs? Answer Date of Assessment Author Status No 07/30/2020 10:46 PM GRAPHITE PAN DRIER TENDER Nella Le RN Active * Do [...] st Contact Info) Description 09/25/2024 11:30 AM GRAPHITE PAN DRIER TENDER Appointment [facility] [address] [place] [address] Roberta Alex MD [address] [place] [address] 09/25/2024 11:40 AM GRAPHITE PAN DRIER TENDER Office Visit [facility] [address] [place] [address] Roberta Alex MD [address] [place] [address] documented as of this encounter Visit Diagnoses Not on filedocumented in this encounter Additional Health Concerns Infection Onset Date Last Indicated Resolved Time 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
--- OUTSIDE RECORDS SUMMARY | 2024-07-11 10:01 | XMS_ITS | Encounter Summary ---
Author Organization [facility] Address [address] [place] [address]. [place] [address] [place] [address] Care Team Providers Care Fx Artist Name Role Phone Alejandro Blevins MD Primary Care Provider [phone] Encounter Details Date Type Department Care Team (Latest Contact Info) Description 07/30/2020 Travel Social History Tobacco Use Types Packs/Day Years Used Date Smoking Tobacco: Former Smokeless Tobacco: Current Comments Yes Sex and Gender Information Value Date Recorded Sex Assigned at Not on file Legal Sex Female 11:30 PM GASTROENTEROLOGY PHYSICIAN Gender Identity Female 11/10/2021 3:09 PM CDT Sexual Orientation Straight 11/10/2021 3: 09 PM CDT COVID-19 Exposure Response Date Recorded In the last month, have you been in contact with someone who was confirmed or suspected to have Coronavirus / COVID-19? No / Unsure 07/30/2020 1:19 PM GASTROENTEROLOGY PHYSICIAN documented as of this encounter Functional Status documented as of this encounter Mental Status * Question Answer Entry Date Author Status Because of a physical, mental, or emotional condition, do you have serious difficulty concentrating, remembering, or making decisions? No 07/30/2020 10:46 PM GASTROENTEROLOGY PHYSICIAN Nella Le RN Active documented in this encounter Plan of Treatment Upcoming Encounters Date Type Department Care Team (Late st Contact Info) Description 09/25/2024 11:30 AM GASTROENTEROLOGY PHYSICIAN Appointment [place] [id number] [facility] [place] [address] Roberta Alex MD [address] [place] [address] 09/25/2024 11:40 AM GASTROENTEROLOGY PHYSICIAN Office Visit [facility] [address] [facility] [place] [address] Roberta Alex MD [address] [place] [address] documented as of this encounter Visit Diagnoses Not on filedocumented in this encounter Additional Health Concerns Infection Onset Date Last Indicated Resolved Time COVID-19 Rule Out 07/30/2020 07/30/2020 07/30/2020 4:31 PM GASTROENTEROLOGY PHYSICIAN documented as of this encounter Care Teams Fx Artist Relationship Specialty Start Date End Date Alejandro Blevins MD PCP - General FAMILY PRACTICE 12/10/19 documented as of this encounter
--- OUTSIDE RECORDS SUMMARY | 2024-07-11 10:01 | XMS_ITS | Encounter Summary ---
Author Organization [facility] Address [address] [place] [address]. [place], [place] [address] [place] [address] Care Team Providers Care Instructional Technology Coach Name Role Phone Alejandro Blevins MD Primary Care Provider [phone] Encounter Details Date Type Department Care Team (Latest Contact Info) Description 12/30/2020 Travel Social History Tobacco Use Types Packs/Day Years Used Date Smoking Tobacco: Former Smokeless Tobacco: Current Comments Yes Sex and Gender Information Value Date Recorded Sex Assigned at Not on file Legal Sex Female 11:30 PM TIRE MOLDER Gender Identity Female 11/10/2021 3:09 PM [...] Assessment Author Status No 07/30/2020 10:48 PM TIRE MOLDER Acti ve * RETIRED Are you blind or do you have serious difficulty seeing, even when wearing glasses? Answer Date of Assessment Author Status No 07/30/2020 10:46 PM TIRE MOLDER Acti ve * Do you have serious difficulty walking or climbing stairs? Answer Date of Assessment Author Status No 07/30/2020 10:46 PM TIRE MOLDER Nella Le RN Active * Do you have difficulty dressing or bathing? Answer Date of Assessment Author Status No 07/30/2020 10:46 PM TIRE MOLDER Nella Le RN Active * Because [...] st Contact Info) Description 09/25/2024 11:30 AM TIRE MOLDER Appointment [place] [id number] [facility] [place] [address] Roberta Alex MD [address] [place] [address] 09/25/2024 11:40 AM TIRE MOLDER Office Visit [facility] [place] [address] Roberta Alex MD [address] [place] [id number] documented as of this encounter Visit Diagnoses Not on filedocumented in this encounter Care Teams Instructional Technology Coach Relationship Specialty Start Date End Date Alejandro Blevins MD PCP - General FAMILY PRACTICE 12/10/19 documented as of this encounter
--- OUTSIDE RECORDS SUMMARY | 2024-07-11 10:01 | XMS_ITS | Encounter Summary ---
Author Organization [facility] Address [address] [place] [address]. [place] [address] [place] [address] Care Team Providers Care Machine Lead Burner Name Role Phone Alejandro Blevins MD Primary Care Provider [phone] Encounter Details Date Type Department Care Team (Latest Contact Info) Description 10/21/2020 11:10 AM CDT - 10/21/2020 11:59 PM CDT Hospital Encounter [address] [place] [address] Roberta Alex MD [address] [place] [address] Discharge Disposition: Home or Self Care (Routine Discharge) Social History Tobacco Use Types Packs/Day Years Used Date Smoking Tobacco: Former Smokeless Tobacco: Current Comments Yes Sex and Gender Information Value Date Recorded Sex Assigned at Not on file Legal Sex Female 11:30 PM KETTLE WORKER Gender Identity Female 11/10/2021 3:09 PM [...] Author Status No 07/30/2020 10:48 PM KETTLE WORKER Acti ve * RETIRED Are you blind or do you have serious difficulty seeing, even when wearing glasses? Answer Date of Assessment Author Status No 07/30/2020 10:46 PM KETTLE WORKER Acti ve * Do you have [...] Contact Info) Description 09/25/2024 11:30 AM KETTLE WORKER Appointment [facility] [address] [place] [address] Roberta Alex MD [address] [place] [address] 09/25/2024 11:40 AM KETTLE WORKER Office Visit [facility] [address] [place] [address] Roberta Alex MD [address] [place] [address] documented as of this encounter Procedures Procedure Name Priority Date/Time Associated Diagnosis Comments CBC W/DIFF AUTOMATED Routine 10/21/2020 2:08 PM CDT Thrombocytopenia documented in this encounter Results * (ABNORMAL) CBC W/DIFF AUTOMATED (10/21/2020 2:08 PM CDT) WBC 7.4 4.5 - 10.8 x10'3/uL 10/21/2020 2:20 PM CDT [facility] RBC 4.27 4.10 - 5.40 x10'6/uL 10/21/2020 2:20 PM CDT [facility] HGB 10.2(L) 12.0 - 16.0 G/DL 10/21/2020 2:20 PM CDT [facility] HCT 34.4(L) 36.0 - 47.0 % 10/21/2020 2:20 PM CDT [facility] MCV 80.6 78.0 - 100.0 FL 10/21/2020 2:20 PM CDT [facility] MCH 23.9(L) 27.0 - 31.0 PG 10/21/2020 2:20 PM CDT [facility] MCHC 29.7(L) 33.0 - 36.0 G/DL 10/21/2020 2:20 PM CDT [facility] RDW 14.6(H) 11.5 - 14.5 % 10/21/2020 2:20 PM CDT [facility] PLT 109(L) 150 - 350 x10'3/uL 10/21/2020 2:20 PM CDT [facility] MPV RESULTS NOT AVAILABLE 7.4 - 10.4 FL 10/21/2020 2:20 PM CDT [facility] DIFFERENTIAL COMMENT NORMAL REFERENCE RANGE NOT ESTABLISHED FOR THE PROPORTIONAL LEUKOCYTE DIFFERENTIAL. 10/21/2020 2:20 PM CDT [facility] SEG NEUTROPHILS 64.5 % 2:51 PM CDT [facility] LYMPHOCYTES 24.9 % 10/21/2020 2:51 PM CDT [facility] MONOCYTES 5.8 % 10/21/2020 2:51 PM CDT [facility] EOSINOPHILS 3.3 % 10/21/2020 2:51 PM CDT [facility] BASOPHILS 1.2 % 10/21/2020 2:51 PM CDT [facility] IMMATURE GRANS % 0.3 % 10/22/19 2:51 PM CDT [facility] NRBC 0.0 % 10/21/2020 2:51 PM CDT [facility] ABS. NEUTROPHILS 4.77 1.60 - 8.30 x10'3/uL 10/21/2020 2:51 PM CDT [facility] ABS. LYMPHOCYTES 1.84 0.80 - 4.70 x10'3/uL 10/21/2020 2:51 PM CDT [facility] ABS. MONOCYTES 0.43 0.00 - 1.50 x10'3/uL 10/21/2020 2:51 PM CDT [facility] ABS. EOSINOPHILS 0.24 0.00 - 0.40 x10'3/uL 10/21/2020 2:51 PM CDT [facility] ABS. BASOPHILS 0.09 0.00 - 0.20 x10'3/uL 10/21/2020 2:51 PM CDT [facility] ABS. IMMATURE GRANULOCYTES 0.02 0.00 - 0.03 x10'3/uL 10/21/2020 2:51 PM CDT [facility] ABS. NUCLEATED RBC'S 0.00 0.00 x10'3/uL 10/21/2020 2:51 PM CDT [facility] PLT MORPH. NORMAL 10/21/2020 2:51 PM CDT [facility] RBC MORPHOLOGY NORMAL 10/21/2020 2:51 PM CDT [facility] 10/21/2020 2:08 PM CDT Roberta Alex MD LABORATORY Final Result [facility] [address] [place] [address], documented in this encounter Visit Diagnoses Diagnosis Thrombocytopenia (CMS/HCC) Thrombocytopenia, unspecified documented in this encounter Care Teams Machine Lead Burner Relationship Specialty Start Date End Date Alejandro Blevins MD PCP - General FAMILY PRACTICE 12/10/19 documented as of this encounter
--- OUTSIDE RECORDS SUMMARY | 2024-07-11 10:01 | XMS_ITS | Encounter Summary ---
Author Organization [facility] Address [address] [place] [address]. [place] [address] [place] [address] Care Team Providers Care Bookmobile Librarian Name Role Phone Alejandro Blevins MD Primary Care Provider [phone] Encounter Details Date Type Department Care Team (Latest Contact Info) Description 07/29/2020 Travel Social History Tobacco Use Types Packs/Day Years Used Date Smoking Tobacco: Every Day Smokeless Tobacco: Never Comments Yes Sex and Gender Information Value Date Recorded Sex Assigned at Not on file Legal Sex Female 11:30 PM JAVA ANDROID DEVELOPER Gender Identity Female 11/10/2021 3:09 PM CDT Sexual Orientation Straight 11/10/2021 3: 09 PM CDT COVID-19 Exposure Response Date Recorded In the last month, have you been in contact with someone who was confirmed or suspected to have Coronavirus / COVID-19? No / Unsure 07/29/2020 10:35 AM JAVA ANDROID DEVELOPER documented as of this encounter Plan of Treatment Upcoming Encounters Date Type Department Care Team (Late st Contact Info) Description 09/25/2024 11:30 AM JAVA ANDROID DEVELOPER Appointment [facility] [address] [place] [address] Roberta Alex MD [address] [place] [address] 09/25/2024 11:40 AM JAVA ANDROID DEVELOPER Office Visit [facility] [address] [place] [address] Roberta Alex MD [address] [place] [address] documented as of this encounter Visit Diagnoses Not on filedocumented in this encounter Care Teams Bookmobile Librarian Relationship Specialty Start Date End Date Alejandro Blevins MD PCP - General FAMILY PRACTICE 12/10/19 documented as of this encounter
--- OUTSIDE RECORDS SUMMARY | 2024-07-11 10:01 | XMS_ITS | Encounter Summary ---
Author Organization [facility] Address [address] [place] [address]. [place] [address] [place] [address] Care Team Providers Care Federal Aid Coordinator Name Role Phone Alejandro Blevins MD Primary Care Provider [phone] Encounter Details Date Type Department Care Team (Latest Contact Info) Description 07/29/2020 10:30 AM MELTING OPERATOR - 07/29/2020 11:31 AM MELTING OPERATOR Hospital Encounter [facility] [address] [place] [address] [place] [address] Roberta Alex MD [address] [place] [address] Discharge Disposition: Home or Self Care (Routine Discharge) Social History Tobacco Use Types Packs/Day Years Used Date Smoking Tobacco: Every Day Smokeless Tobacco: Never Comments Yes Sex and Gender Information Value Date Recorded Sex Assigned at Not on file Legal Sex Female 11:30 PM MELTING OPERATOR Gender Identity Female 11/10/2021 3:09 PM CDT Sexual Orientation Straight 11/10/2021 3: 09 PM CDT COVID-19 Exposure Response Date Recorded In the last month, have you been in contact with someone who was confirmed or suspected to have Coronavirus / COVID-19? No / Unsure 07/29/2020 10:35 AM MELTING OPERATOR documented as of this encounter Medications at Time of Discharge Sofosbuvir-Velpat asvir 400-100 MG Tab Take 1 tablet by mouth daily. 06/17/2020 01/06/2021 documented as of this encounter Plan of Treatment Upcoming Encounters Date Type Department Care Team (Late st Contact Info) Description 09/25/2024 11:30 AM MELTING OPERATOR Appointment [facility] [address] [place] [address] Roberta Alex MD [address] [place], [place] [address] 09/25/2024 11:40 AM MELTING OPERATOR Office Visit [facility] [place] [address] Roberta Alex MD [address] [place], [place] [address] documented as of this encounter Procedures Procedure Name Priority Date/Time Associated Diagnosis Comments ORDER PLATELET PHERESIS Routine 07/29/2020 11:40 AM MELTING OPERATOR Chronic ITP (idiopathic thrombocytopenia) ([facility]) CBC W/DIFF AUTOMATED Routine 07/29/2020 10:43 AM MELTING OPERATOR Chronic ITP (idiopathic thrombocytopenia) ([facility]) Anemia documented in this encounter Results * ORDER PLATELET PHERESIS, 1 Units (07/29/2020 11:40 AM MELTING OPERATOR) UNITS ORDERED 1 07/29/2020 11:41 AM [facility] BLOOD UNIT NUMBER [id number] 07/29/2020 3:31 PM MELTING OPERATOR [facility] PRODUCT: PLT PHERESIS LEUKOPOOR BAG 1 07/29/2020 3:31 PM MELTING OPERATOR [facility] UNIT DIVISION 00 07/29/2020 3:31 PM MELTING OPERATOR [facility] BLOOD UNIT STATUS TRANSFUSED,FINAL 07/31/2020 12:15 AM MELTING OPERATOR [facility] ISSUE DATE/TIME [id number] 021 12:15 AM [facility] PRODUCT CODE [id number] 07/31/2020 12:15 AM MELTING OPERATOR [facility] ABO/RH Unit A POS 07/31/2020 12:15 AM [facility] ABO/RH UNIT ISBT CODE [id number] 07/31/2020 12:15 AM [facility] BLOOD UNIT EXPIRATION DATE [id number] 07/31/2020 12:15 AM [facility] TRANSFUSION STATUS OK TO TRANSFUSE 07/29/2020 3:31 PM [facility] 07/29/2020 11:4 0 AM MELTING OPERATOR Roberta Alex MD BLOOD BANK PRODUCT ORDERABLES Final Result [facility] [address] [place] [address], * (ABNORMAL) CBC W/DIFF AUTOMATED (07/29/2020 10:43 AM MELTING OPERATOR) WBC 6.9 4.5 - 10.8 x10'3/uL 07/29/2020 10:56 AM [facility] RBC 4.70 4.10 - 5.40 x10'6/uL 07/29/2020 10:56 AM [facility] HGB 13.1 12.0 - 16.0 G/DL 07/29/2020 10:56 AM [facility] HCT 42.7 36.0 - 47.0 % 07/29/2020 10:56 AM [facility] MCV 90.9 78.0 - 100.0 FL 07/29/2020 10:56 AM [facility] MCH 27.9 27.0 - 31.0 PG 07/29/2020 10:56 AM [facility] MCHC 30.7(L) 33.0 - 36.0 G/DL 07/29/2020 10:56 AM [facility] RDW 13.8 11.5 - 14.5 % 07/29/2020 10:56 AM [facility] PLT 20(LL) 150 - 350 x10'3/uL 07/29/2020 10:56 AM [facility] Comment: CRITICAL VALUE CALLED TO TANYA AT 1055 READ BACK AND VERIFIED RESULT CHECKED MPV RESULTS NOT AVAILABLE 7.4 - 10.4 FL 07/29/2020 10:56 AM [facility] DIFFERENTIAL COMMENT NORMAL REFERENCE RANGE NOT ESTABLISHED FOR THE PROPORTIONAL LEUKOCYTE DIFFERENTIAL. 07/29/2020 10:56 AM [facility] SEG NEUTROPHILS 57.1 % 11:19 AM [facility] LYMPHOCYTES 27.2 % 07/29/2020 11:19 AM [facility] MONOCYTES 5.2 % 07/29/2020 11:19 AM [facility] EOSINOPHILS 9.5 % 07/29/2020 11:19 AM [facility] BASOPHILS 0.9 % 07/29/2020 11:19 AM [facility] IMMATURE GRANS % 0.1 % 07/29/19 11:19 AM [facility] NRBC 0.0 % 07/29/2020 11:19 AM [facility] ABS. NEUTROPHILS 3.93 1.60 - 8.30 x10'3/uL 07/29/2020 11:19 AM [facility] ABS. LYMPHOCYTES 1.88 0.80 - 4.70 x10'3/uL 07/29/2020 11:19 AM [facility] ABS. MONOCYTES 0.36 0.00 - 1.50 x10'3/uL 07/29/2020 11:19 AM [facility] ABS. EOSINOPHILS 0.66(H) 0.00 - 0.40 x10'3/uL 07/29/2020 11:19 AM [facility] ABS. BASOPHILS 0.06 0.00 - 0.20 x10'3/uL 07/29/2020 11:19 AM [facility] ABS. IMMATURE GRANULOCYTES 0.01 0.00 - 0.03 x10'3/uL 07/29/2020 11:19 AM [facility] ABS. NUCLEATED RBC'S 0.00 0.00 x10'3/uL 07/29/2020 11:19 AM [facility] PLT MORPH. DECREASED 07/29/2020 11:19 AM MELTING OPERATOR [facility] RBC MORPHOLOGY 1+ 07/29/2020 11:19 AM MELTING OPERATOR [facility] Comment:ANISOCYTOSIS 07/29/2020 10:4 3 AM MELTING OPERATOR us Roberta Alex MD LABORATORY Final Result [facility] [address] [place] [address], documented in this encounter Visit Diagnoses Diagnosis Chronic ITP (idiopathic thrombocytopenia) ([facility]) Immune thrombocytopenic purpura Anemia Anemia, unspecified Iron deficiency anemia secondary to inadequate dietary iron intake documented in this encounter Care Teams Federal Aid Coordinator Relationship Specialty Start Date End Date Alejandro Blevins MD PCP - General FAMILY PRACTICE 12/10/19 documented as of this encounter
--- OUTSIDE RECORDS SUMMARY | 2024-07-11 10:01 | XMS_ITS | Encounter Summary ---
Author Organization [facility] Address [address] [place] [address]. [place] [address] [place] [address] Care Team Providers Care Claim Service Representative Name Role Phone Alejandro Blevins MD Primary Care Provider [phone] Encounter Details Date Type Department Care Team (Latest Contact Info) Description 08/19/2020 8:37 AM PEDIATRIC PHYSICAL THERAPY ASSISTANT - 08/19/2020 11:59 PM PEDIATRIC PHYSICAL THERAPY ASSISTANT Hospital Encounter [address] [place] [address] Roberta Alex MD [address] [place] [address] Discharge Disposition: Home or Self Care (Routine Discharge) Social History Tobacco Use Types Packs/Day Years Used Date Smoking Tobacco: Former Smokeless Tobacco: Current Comments Yes Sex and Gender Information Value Date Recorded Sex Assigned at Not on file Legal Sex Female 11:30 PM PEDIATRIC PHYSICAL THERAPY ASSISTANT Gender Identity Female 11/10/2021 3:09 PM CDT Sexual Orientation Straight 11/10/2021 3: 09 PM CDT COVID-19 Exposure Response Date Recorded In the last month, have you been in contact with someone who was confirmed or suspected to have Coronavirus / COVID-19? No / Unsure 08/19/2020 8:37 AM PEDIATRIC PHYSICAL THERAPY ASSISTANT documented as of this encounter Functional Status * RETIRED Are you deaf or do you have serious difficulty hearing Answer Date of Assessment Author Status No 07/30/2020 10:48 PM PEDIATRIC PHYSICAL THERAPY ASSISTANT Acti ve * RETIRED Are you blind or do you have serious difficulty seeing, even when wearing glasses? Answer Date of Assessment Author Status No 07/30/2020 10:46 PM PEDIATRIC PHYSICAL THERAPY ASSISTANT Acti ve * Do you have [...] 10 mg tabletIndications :Chronic ITP (idiopathic thrombocytopenia) ([facility]) Take 5 tablets (50 mg [...] st Contact Info) Description 09/25/2024 11:30 AM PEDIATRIC PHYSICAL THERAPY ASSISTANT Appointment [facility] [address] [facility] [place] [address] Roberta Alex MD [address] [place] [address] 09/25/2024 11:40 AM PEDIATRIC PHYSICAL THERAPY ASSISTANT Office Visit [facility] [address] [facility] [place] [address] Roberta Alex MD [address] [place] [address] documented as of this encounter Visit Diagnoses Not on filedocumented in this encounter Care Teams Claim Service Representative Relationship Specialty Start Date End Date Alejandro Blevins MD PCP - General FAMILY PRACTICE 12/10/19 documented as of this encounter
--- OUTSIDE RECORDS SUMMARY | 2024-07-11 10:02 | XMS_ITS | Encounter Summary ---
Author Organization [facility] Address [address] [place] [address]. [place] [address] [place] [address] Care Team Providers Care Checkering Machine Operator Name Role Phone Alejandro Blevins MD Primary Care Provider [phone] Reason for Visit * Reason Comments Follow Up Lab Results Encounter Details Date Type Department Care Team (Late st Contact Info) Description 05/13/2020 10:40 AM CDT Office Visit [address] [place] [address] Roberta Alex MD [address] [place] [address] Follow Up; Lab Results Social History Tobacco Use Types Packs/Day Years Used Date Smoking Tobacco: Every Day Smokeless Tobacco: Never Comments Yes Sex and Gender Information Value Date Recorded Sex Assigned at Not on file Legal Sex Female 11:30 PM WARP HANGER Gender Identity Female 11/10/2021 3:09 PM CDT [...] until fifth month. She followed closely with high school social science teacher- speech communication instructor Dr Machelle Costello at [employer] in [place]. Patient has history of chronic thrombocytopenia and iron deficiency and followed with [facility] steam hammer operator Dr. Dick Bonilla 5 years ago. She [...] file Gets together: Not on file Attends shinto service: Not on file Active member of [...] Outpatient Medications Medication Sig Dispense Refill ??? odrawhp-rmlefewusjzud-yjdscltq 250-250-65 MG tablet Take 1 tablet by [...] st Contact Info) Description 09/25/2024 11:30 AM WARP HANGER Appointment [facility] [address] [place] [address] [place] [address] Roberta Alex MD [address] [place] [address] 09/25/2024 11:40 AM WARP HANGER Office Visit [facility] [address] [place] [address] [place] [address] Roberta Alex MD [address] [place] [address] documented as of this encounter Visit Diagnoses Diagnosis Chronic ITP (idiopathic thrombocytopenia) ([facility])- Primary Immune thrombocytopenic purpura Iron deficiency anemia secondary to inadequate dietary iron intake Other vitamin B12 deficiency anemia documented in this encounter Care Teams Checkering Machine Operator Relationship Specialty Start Date End Date Alejandro Blevins MD PCP - General FAMILY PRACTICE 12/10/19 documented as of this encounter
--- OUTSIDE RECORDS SUMMARY | 2024-07-11 10:02 | XMS_ITS | Encounter Summary ---
Author Organization [facility] Address [facility] [place] [address] [place] [address] Care Team Providers Care Outdoor Adventure Guides Name Role Phone Alejandro Blevins MD Primary Care Provider [phone] Encounter Details Date Type Department Care Team ([facility] Contact Info) Description 05/16/2020 Orders Only [facility] [place] [address] Tejinder Garcia, [facility] Social History Tobacco Use Types Packs/Day Years Used Date Smoking Tobacco: Every Day Smokeless Tobacco: Never Comments Yes Sex and Gender Information Value Date Recorded Sex Assigned at Not on file Legal Sex Female 11:30 PM SALES REPRESENTATIVE EDUCATION COURSES Gender Identity Female 11/10/2021 3:09 PM CDT [...] (Late Contact Info) Description 09/25/2024 11:30 AM SALES REPRESENTATIVE EDUCATION COURSES Appointment [facility] [place] [address] Roberta Alex MD [address] [place] [address] 09/25/2024 11:40 AM SALES REPRESENTATIVE EDUCATION COURSES Office Visit [facility] [place] [address] [place] [address] Roberta Alex MD [address] [place] [address] documented as of this encounter Results * (ABNORMAL) CBC W/DIFF AUTOMATED (09/09/2020 11:21 AM SALES REPRESENTATIVE EDUCATION COURSES) WBC 11.1(H) 4.5 - 10.8 x10'3/uL 09/09/2020 11:38 AM [facility] RBC 3.64(L) 4.10 - 5.40 x10'6/uL 09/09/2020 11:38 AM [facility] HGB 10.0(L) 12.0 - 16.0 G/DL 09/09/2020 11:38 AM [facility] HCT 32.1(L) 36.0 - 47.0 % 09/09/2020 11:38 AM [facility] MCV 88.2 78.0 - 100.0 FL 09/09/2020 11:38 AM [facility] MCH 27.5 27.0 - 31.0 PG 09/09/2020 11:38 AM [facility] MCHC 31.2(L) 33.0 - 36.0 G/DL 09/09/2020 11:38 AM [facility] RDW 14.0 11.5 - 14.5 % 09/09/2020 11:38 AM [facility] PLT 165 150 - 350 x10'3/uL 09/09/2020 11:38 AM [facility] MPV 12.0(H) 7.4 - 10.4 FL 09/09/2020 11:38 AM [facility] DIFFERENTIAL COMMENT NORMAL REFERENCE RANGE NOT ESTABLISHED FOR THE PROPORTIONAL LEUKOCYTE DIFFERENTIAL. 09/09/2020 11:38 AM [facility] SEG NEUTROPHILS 67.2 % 11:38 AM [facility] LYMPHOCYTES 26.0 % 09/09/2020 11:38 AM [facility] MONOCYTES 4.2 % 09/09/2020 11:38 AM [facility] EOSINOPHILS 1.8 % 09/09/2020 11:38 AM [facility] BASOPHILS 0.4 % 09/09/2020 11:38 AM [facility] IMMATURE GRANS % 0.4 % 09/09/19 11:38 AM SALES REPRESENTATIVE EDUCATION COURSES [facility] NRBC 0.0 % 09/09/2020 11:38 AM SALES REPRESENTATIVE EDUCATION COURSES [facility] ABS. NEUTROPHILS 7.49 1.60 - 8.30 x10'3/uL 09/09/2020 11:38 AM SALES REPRESENTATIVE EDUCATION COURSES [facility] ABS. LYMPHOCYTES 2.90 0.80 - 4.70 x10'3/uL 09/09/2020 11:38 AM [facility] ABS. MONOCYTES 0.47 0.00 - 1.50 x10'3/uL 09/09/2020 11:38 AM [facility] ABS. EOSINOPHILS 0.20 0.00 - 0.40 x10'3/uL 09/09/2020 11:38 AM SALES REPRESENTATIVE EDUCATION COURSES [facility] ABS. BASOPHILS 0.04 0.00 - 0.20 x10'3/uL 09/09/2020 11:38 AM [facility] ABS. IMMATURE GRANULOCYTES 0.04(H) 0.00 - 0.03 x10'3/uL 09/09/2020 11:38 AM [facility] ABS. NUCLEATED RBC'S 0.00 0.00 x10'3/uL 09/09/2020 11:38 AM [facility] 09/09/2020 11:2 1 AM SALES REPRESENTATIVE EDUCATION COURSES us Roberta Alex MD LABORATORY Final Result [facility] [address] [place] [address], * (ABNORMAL) CBC W/DIFF AUTOMATED (08/26/2020 9:30 AM SALES REPRESENTATIVE EDUCATION COURSES) Pathologist [facility] WBC 7.6 4.5 - 10.8 x10'3/uL 08/26/2020 10:10 AM [facility] RBC 4.81 4.10 - 5.40 x10'6/uL 08/26/2020 10:10 AM [facility] HGB 13.2 12.0 - 16.0 G/DL 08/26/2020 10:10 AM [facility] HCT 42.4 36.0 - 47.0 % 08/26/2020 10:10 AM [facility] MCV 88.1 78.0 - 100.0 FL 08/26/2020 10:10 AM [facility] MCH 27.4 27.0 - 31.0 PG 08/26/2020 10:10 AM [facility] MCHC 31.1(L) 33.0 - 36.0 G/DL 08/26/2020 10:10 AM [facility] RDW 13.8 11.5 - 14.5 % 08/26/2020 10:10 AM [facility] PLT 49(L) 150 - 350 x10'3/uL 08/26/2020 10:10 AM [facility] MPV RESULTS NOT AVAILABLE 7.4 - 10.4 FL 08/26/2020 10:10 AM [facility] DIFFERENTIAL COMMENT NORMAL REFERENCE RANGE NOT ESTABLISHED FOR THE PROPORTIONAL LEUKOCYTE DIFFERENTIAL. 08/26/2020 10:10 AM [facility] PLT MORPH. DECREASED 08/26/2020 10:10 AM [facility] RBC MORPHOLOGY 1+ 08/26/2020 10:10 AM [facility] Comment:ANISOCYTOSIS 08/26/2020 9:30 AM SALES REPRESENTATIVE EDUCATION COURSES us Roberta Alex MD LABORATORY Final Result [facility] [address] [place] [address], * (ABNORMAL) CBC W/DIFF AUTOMATED (08/12/2020 3:48 PM SALES REPRESENTATIVE EDUCATION COURSES) [facility] WBC 7.4 4.5 - 10.8 x10'3/uL 08/12/2020 3:57 PM SALES REPRESENTATIVE EDUCATION COURSES [facility] RBC 4.81 4.10 - 5.40 x10'6/uL 08/12/2020 3:57 PM SALES REPRESENTATIVE EDUCATION COURSES [facility] HGB 13.4 12.0 - 16.0 G/DL 08/12/2020 3:57 PM SALES REPRESENTATIVE EDUCATION COURSES [facility] HCT 42.9 36.0 - 47.0 % 08/12/2020 3:57 PM SALES REPRESENTATIVE EDUCATION COURSES [facility] MCV 89.2 78.0 - 100.0 FL 08/12/2020 3:57 PM SALES REPRESENTATIVE EDUCATION COURSES [facility] MCH 27.9 27.0 - 31.0 PG 08/12/2020 3:57 PM SALES REPRESENTATIVE EDUCATION COURSES [facility] MCHC 31.2(L) 33.0 - 36.0 G/DL 08/12/2020 3:57 PM [facility] RDW 13.9 11.5 - 14.5 % 08/12/2020 3:57 PM [facility] PLT 89(L) 150 - 350 x10'3/uL 08/12/2020 3:57 PM [facility] MPV 12.8(H) 7.4 - 10.4 FL 08/12/2020 3:57 PM [facility] DIFFERENTIAL COMMENT NORMAL REFERENCE RANGE NOT ESTABLISHED FOR THE PROPORTIONAL LEUKOCYTE DIFFERENTIAL. 08/12/2020 3:57 PM [facility] SEG NEUTROPHILS 51.0 % 4:29 PM SALES REPRESENTATIVE EDUCATION COURSES [facility] LYMPHOCYTES 33.0 % 08/12/2020 4:29 PM SALES REPRESENTATIVE EDUCATION COURSES [facility] MONOCYTES 5.4 % 08/12/2020 4:29 PM SALES REPRESENTATIVE EDUCATION COURSES [facility] EOSINOPHILS 9.4 % 08/12/2020 4:29 PM SALES REPRESENTATIVE EDUCATION COURSES [facility] BASOPHILS 0.9 % 08/12/2020 4:29 PM SALES REPRESENTATIVE EDUCATION COURSES [facility] IMMATURE GRANS % 0.3 % 08/12/19 4:29 PM SALES REPRESENTATIVE EDUCATION COURSES [facility] NRBC 0.0 % 08/12/2020 4:29 PM SALES REPRESENTATIVE EDUCATION COURSES [facility] ABS. NEUTROPHILS 3.77 1.60 - 8.30 x10'3/uL 08/12/2020 4:29 PM SALES REPRESENTATIVE EDUCATION COURSES [facility] ABS. LYMPHOCYTES 2.44 0.80 - 4.70 x10'3/uL 08/12/2020 4:29 PM SALES REPRESENTATIVE EDUCATION COURSES [facility] ABS. MONOCYTES 0.40 0.00 - 1.50 x10'3/uL 08/12/2020 4:29 PM SALES REPRESENTATIVE EDUCATION COURSES [facility] ABS. EOSINOPHILS 0.70(H) 0.00 - 0.40 x10'3/uL 08/12/2020 4:29 PM SALES REPRESENTATIVE EDUCATION COURSES [facility] ABS. BASOPHILS 0.07 0.00 - 0.20 x10'3/uL 08/12/2020 4:29 PM SALES REPRESENTATIVE EDUCATION COURSES [facility] ABS. IMMATURE GRANULOCYTES 0.02 0.00 - 0.03 x10'3/uL 08/12/2020 4:29 PM SALES REPRESENTATIVE EDUCATION COURSES [facility] ABS. NUCLEATED RBC'S 0.00 0.00 x10'3/uL 08/12/2020 4:29 PM SALES REPRESENTATIVE EDUCATION COURSES [facility] PLT MORPH. DECREASED 08/12/2020 4:29 PM SALES REPRESENTATIVE EDUCATION COURSES [facility] RBC MORPHOLOGY 1+ 08/12/2020 4:29 PM SALES REPRESENTATIVE EDUCATION COURSES [facility] Comment:ANISOCYTOSIS 08/12/2020 3:48 PM SALES REPRESENTATIVE EDUCATION COURSES us Roberta Alex MD LABORATORY Final Result [facility] [address] [place] [address], * (ABNORMAL) CBC W/DIFF AUTOMATED (07/30/2020 9:40 AM SALES REPRESENTATIVE EDUCATION COURSES) WBC 5.2 4.5 - 10.8 x10'3/uL 07/30/2020 9:50 AM SALES REPRESENTATIVE EDUCATION COURSES [facility] RBC 4.67 4.10 - 5.40 x10'6/uL 07/30/2020 9:50 AM [facility] HGB 13.0 12.0 - 16.0 G/DL 07/30/2020 9:50 AM [facility] HCT 41.9 36.0 - 47.0 % 07/30/2020 9:50 AM [facility] MCV 89.7 78.0 - 100.0 FL 07/30/2020 9:50 AM [facility] MCH 27.8 27.0 - 31.0 PG 07/30/2020 9:50 AM [facility] MCHC 31.0(L) 33.0 - 36.0 G/DL 07/30/2020 9:50 AM [facility] RDW 14.0 11.5 - 14.5 % 07/30/2020 9:50 AM [facility] PLT 15(LL) 150 - 350 x10'3/uL 07/30/2020 9:50 AM [facility] Comment: CRITICAL VALUE CALLED TO MARIUM AT 0950 READ BACK AND VERIFIED MPV RESULTS NOT AVAILABLE 7.4 - 10.4 FL 07/30/2020 9:50 AM [facility] DIFFERENTIAL COMMENT NORMAL REFERENCE RANGE NOT ESTABLISHED FOR THE PROPORTIONAL LEUKOCYTE DIFFERENTIAL. 07/30/2020 9:50 AM [facility] SEG NEUTROPHILS 74.9 % 9:57 AM [facility] LYMPHOCYTES 6.4 % 07/30/2020 9:57 AM [facility] MONOCYTES 4.7 % 07/30/2020 9:57 AM [facility] EOSINOPHILS 12.4 % 07/30/2020 9:57 AM [facility] BASOPHILS 1.4 % 07/30/2020 9:57 AM [facility] IMMATURE GRANS % 0.2 % 07/30/19 9:57 AM [facility] NRBC 0.0 % 07/30/2020 9:57 AM [facility] ABS. NEUTROPHILS 3.91 1.60 - 8.30 x10'3/uL 07/30/2020 9:57 AM SALES REPRESENTATIVE EDUCATION COURSES [facility] ABS. LYMPHOCYTES 0.33(L) 0.80 - 4.70 x10'3/uL 07/30/2020 9:57 AM [facility] ABS. MONOCYTES 0.24 0.00 - 1.50 x10'3/uL 07/30/2020 9:57 AM [facility] ABS. EOSINOPHILS 0.64(H) 0.00 - 0.40 x10'3/uL 07/30/2020 9:57 AM SALES REPRESENTATIVE EDUCATION COURSES [facility] ABS. BASOPHILS 0.07 0.00 - 0.20 x10'3/uL 07/30/2020 9:57 AM [facility] ABS. IMMATURE GRANULOCYTES 0.01 0.00 - 0.03 x10'3/uL 07/30/2020 9:57 AM [facility] ABS. NUCLEATED RBC'S 0.00 0.00 x10'3/uL 07/30/2020 9:57 AM [facility] PLT MORPH. DECREASED 07/30/2020 9:57 AM [facility] RBC MORPHOLOGY 1+ 07/30/2020 9:57 AM [facility] Comment:ANISOCYTOSIS 07/30/2020 9:40 AM SALES REPRESENTATIVE EDUCATION COURSES Roberta Alex MD LABORATORY Final Result [facility] [address] [place] [address], * (ABNORMAL) CBC W/DIFF AUTOMATED (07/29/2020 10:43 AM SALES REPRESENTATIVE EDUCATION COURSES) [facility] WBC 6.9 4.5 - 10.8 x10'3/uL 07/29/2020 10:56 AM SALES REPRESENTATIVE EDUCATION COURSES [facility] RBC 4.70 4.10 - 5.40 x10'6/uL 07/29/2020 10:56 AM [facility] HGB 13.1 12.0 - 16.0 G/DL 07/29/2020 10:56 AM [facility] HCT 42.7 36.0 - 47.0 % 07/29/2020 10:56 AM [facility] MCV 90.9 78.0 - 100.0 FL 07/29/2020 10:56 AM [facility] MCH 27.9 27.0 - 31.0 PG 07/29/2020 10:56 AM [facility] MCHC 30.7(L) 33.0 - 36.0 G/DL 07/29/2020 10:56 AM [facility] RDW 13.8 11.5 - 14.5 % 07/29/2020 10:56 AM [facility] PLT 20(LL) 150 - 350 x10'3/uL 07/29/2020 10:56 AM [facility] Comment: CRITICAL VALUE CALLED TO TANYA AT 1055 READ BACK AND VERIFIED RESULT CHECKED MPV RESULTS NOT AVAILABLE 7.4 - 10.4 FL 07/29/2020 10:56 AM [facility] DIFFERENTIAL COMMENT NORMAL REFERENCE RANGE NOT ESTABLISHED FOR THE PROPORTIONAL LEUKOCYTE DIFFERENTIAL. 07/29/2020 10:56 AM [facility] SEG NEUTROPHILS 57.1 % 11:19 AM [facility] LYMPHOCYTES 27.2 % 07/29/2020 11:19 AM [facility] MONOCYTES 5.2 % 07/29/2020 11:19 AM [facility] EOSINOPHILS 9.5 % 07/29/2020 11:19 AM [facility] BASOPHILS 0.9 % 07/29/2020 11:19 AM [facility] IMMATURE GRANS % 0.1 % 07/29/19 11:19 AM [facility] NRBC 0.0 % 07/29/2020 11:19 AM [facility] ABS. NEUTROPHILS 3.93 1.60 - 8.30 x10'3/uL 07/29/2020 11:19 AM [facility] ABS. LYMPHOCYTES 1.88 0.80 - 4.70 x10'3/uL 07/29/2020 11:19 AM [facility] ABS. MONOCYTES 0.36 0.00 - 1.50 x10'3/uL 07/29/2020 11:19 AM [facility] ABS. EOSINOPHILS 0.66(H) 0.00 - 0.40 x10'3/uL 07/29/2020 11:19 AM [facility] ABS. BASOPHILS 0.06 0.00 - 0.20 x10'3/uL 07/29/2020 11:19 AM [facility] ABS. IMMATURE GRANULOCYTES 0.01 0.00 - 0.03 x10'3/uL 07/29/2020 11:19 AM [facility] ABS. NUCLEATED RBC'S 0.00 0.00 x10'3/uL 07/29/2020 11:19 AM [facility] PLT MORPH. DECREASED 07/29/2020 11:19 AM [facility] RBC MORPHOLOGY 1+ 07/29/2020 11:19 AM [facility] Comment:ANISOCYTOSIS 07/29/2020 10:4 3 AM SALES REPRESENTATIVE EDUCATION COURSES us Roberta Alex MD LABORATORY Final Result [facility] [address] [place] [address], * (ABNORMAL) CBC W/DIFF AUTOMATED (07/08/2020 11:55 AM SALES REPRESENTATIVE EDUCATION COURSES) WBC 8.7 4.5 - 10.8 x10'3/uL 07/08/2020 12:04 PM [facility] RBC 4.24 4.10 - 5.40 x10'6/uL 07/08/2020 12:04 PM [facility] HGB 12.1 12.0 - 16.0 G/DL 07/08/2020 12:04 PM [facility] HCT 39.4 36.0 - 47.0 % 07/08/2020 12:04 PM [facility] MCV 92.9 78.0 - 100.0 FL 07/08/2020 12:04 PM [facility] MCH 28.5 27.0 - 31.0 PG 07/08/2020 12:04 PM [facility] MCHC 30.7(L) 33.0 - 36.0 G/DL 07/08/2020 12:04 PM [facility] RDW 15.5(H) 11.5 - 14.5 % 07/08/2020 12:04 PM [facility] PLT 26(LL) 150 - 350 x10'3/uL 07/08/2020 12:04 PM [facility] Comment: CRITICAL VALUE CALLED TO MARIUM AT 1204 READ BACK AND VERIFIED RESULT CHECKED MPV RESULTS NOT AVAILABLE 7.4 - 10.4 FL 07/08/2020 12:04 PM [facility] DIFFERENTIAL COMMENT NORMAL REFERENCE RANGE NOT ESTABLISHED FOR THE PROPORTIONAL LEUKOCYTE DIFFERENTIAL. 07/08/2020 12:04 PM [facility] SEG NEUTROPHILS 67.7 % 0 12:17 PM [facility] LYMPHOCYTES 21.5 % 07/08/2020 12:17 PM [facility] MONOCYTES 4.0 % 07/08/2020 12:17 PM [facility] EOSINOPHILS 5.8 % 07/08/2020 12:17 PM [facility] BASOPHILS 0.8 % 07/08/2020 12:17 PM [facility] IMMATURE GRANS % 0.2 % 07/08/20 20 12:17 PM [facility] NRBC 0.0 % 07/08/2020 12:17 PM [facility] ABS. NEUTROPHILS 5.89 1.60 - 8.30 x10'3/uL 07/08/2020 12:17 PM [facility] ABS. LYMPHOCYTES 1.87 0.80 - 4.70 x10'3/uL 07/08/2020 12:17 PM [facility] ABS. MONOCYTES 0.35 0.00 - 1.50 x10'3/uL 07/08/2020 12:17 PM SALES REPRESENTATIVE EDUCATION COURSES [facility] ABS. EOSINOPHILS 0.50(H) 0.00 - 0.40 x10'3/uL 07/08/2020 12:17 PM SALES REPRESENTATIVE EDUCATION COURSES [facility] ABS. BASOPHILS 0.07 0.00 - 0.20 x10'3/uL 07/08/2020 12:17 PM SALES REPRESENTATIVE EDUCATION COURSES [facility] ABS. IMMATURE GRANULOCYTES 0.02 0.00 - 0.03 x10'3/uL 07/08/2020 12:17 PM SALES REPRESENTATIVE EDUCATION COURSES [facility] ABS. NUCLEATED RBC'S 0.00 0.00 x10'3/uL 07/08/2020 12:17 PM SALES REPRESENTATIVE EDUCATION COURSES [facility] PLT MORPH. DECREASED 07/08/2020 12:17 PM [facility] RBC MORPHOLOGY NORMAL 07/08/2020 12:17 PM [facility] 07/08/2020 11:5 5 AM SALES REPRESENTATIVE EDUCATION COURSES Roberta Alex MD LABORATORY Final Result [facility] [address] [place] [address], documented in this encounter Visit Diagnoses Diagnosis Chronic ITP (idiopathic thrombocytopenia) (CMS/HCC [facility]/HCC)- Primary Immune thrombocytopenic purpura Anemia Anemia, unspecified documented in this encounter Care Teams Outdoor Adventure Guides Relationship Specialty Start Date End Date Alejandro Blevins MD PCP - General FAMILY PRACTICE 12/10/19 documented as of this encounter
--- OUTSIDE RECORDS SUMMARY | 2024-07-11 10:02 | XMS_ITS | Encounter Summary ---
Author Organization [facility] Address [address] [place] [address]. [place], [place] [id number] [place] [address] Care Team Providers Care Teacher Ballet Name Role Phone Alejandro Blevins MD Primary Care Provider Encounter Details Date Type Department Care Team (Latest Contact Info) Description 02/22/2020 Travel Social History Tobacco Use Types Packs/Day Years Used Date Smoking Tobacco: Every Day Smokeless Tobacco: Never Comments Yes Sex and Gender Information Value Date Recorded Sex Assigned at Not on file Legal Sex Female 11:30 PM SPOTTER DRIVER Gender Identity Female 11/10/2021 3:09 PM [...] st Contact Info) Description 09/25/2024 11:30 AM SPOTTER DRIVER Appointment [facility] [address] [place] [address] Roberta Alex MD [address] [place] [address] 09/25/2024 11:40 AM SPOTTER DRIVER Office Visit [facility] [address] [place] [address] Roberta Alex MD [address] [place] [address] documented as of this encounter Visit Diagnoses Not on filedocumented in this encounter Care Teams Teacher Ballet Relationship Specialty Start Date End Date Alejandro Blevins MD PCP - General FAMILY PRACTICE 12/10/19 documented as of this encounter
--- OUTSIDE RECORDS SUMMARY | 2024-07-11 10:02 | XMS_ITS | Encounter Summary ---
Author Organization [facility] Address [address] [place] [address]. [place] [address] [place] [address] Care Team Providers Care Crab Catcher Name Role Phone Alejandro Blevins MD Primary Care Provider [phone] Encounter Details Date Type Department Care Team (Latest Contact Info) Description 04/29/2020 Travel Social History Tobacco Use Types Packs/Day Years Used Date Smoking Tobacco: Every Day Smokeless Tobacco: Never Comments Yes Sex and Gender Information Value Date Recorded Sex Assigned at Not on file Legal Sex Female 11:30 PM DOUBLE NEEDLE STITCHER Gender Identity Female 11/10/2021 3:09 PM CDT [...] st Contact Info) Description 09/25/2024 11:30 AM DOUBLE NEEDLE STITCHER Appointment [facility] [address] [place] [address] Roberta Alex MD [address] [place] [address] 09/25/2024 11:40 AM DOUBLE NEEDLE STITCHER Office Visit [facility] [address] [place] [address] Roberta Alex MD [address] [place] [address] documented as of this encounter Visit Diagnoses Not on filedocumented in this encounter Care Teams Crab Catcher Relationship Specialty Start Date End Date Alejandro Blevins MD PCP - General FAMILY PRACTICE 12/10/19 documented as of this encounter
--- OUTSIDE RECORDS SUMMARY | 2024-07-11 10:02 | XMS_ITS | Encounter Summary ---
Author Organization [facility] Address [address] [place] [address]. [place] [address] [place] [address] Care Team Providers Care Band Nailer Name Role Phone Alejandro Blevins MD Primary Care Provider [phone] Reason for Visit * Reason Comments Follow Up Lab Results Encounter Details Date Type Department Care Team (Late st Contact Info) Description 03/04/2020 10:40 AM CDT Office Visit [address] [place] [address] Roberta Alex MD [address] [place] [address] Follow Up; Lab Results Social History Tobacco Use Types Packs/Day Years Used Date Smoking Tobacco: Every Day Smokeless Tobacco: Never Comments Yes Sex and Gender Information Value Date Recorded Sex Assigned at Not on file Legal Sex Female 11:30 PM RESIDENCE COUNSELOR Gender Identity Female 11/10/2021 3:09 PM [...] with severe fatigue, SOB and hospitalized at [facility] with severe anemia and was also noted to be at 20 weeks withtwins. Pertinent labs with Hgb of 5.2 g/dL, MCV 64.6, platelets 59, ferritin 2/T sat 3, vitamin [id number]. Hemolytic work-up negative. Hemoglobin electrophoresis normal. Hypoproliferative reticulocyte count. MARQUITA negative. Toxicology screen positive for amphetamines. Received 2 units of PRBC, B12 injec tion x1, IV Venofer 300 mg x2. She had no care prior to admission. She now follows closelywith highway maintenance technician-carbon setter Dr Machelle Costello at [facility] in [place]. Plan for IOL in mid April. Patient has history of chronic thrombocytopenia and iron deficiency and followed with [facility] armature straightener Dr. Dick Bonilla 5 years ago. Today [...] file Gets together: Not on file Attends holiness service: Not on file Active member of [...] Outpatient Medications Medication Sig Dispense Refill ??? sngmyxc-sajuygpqrlunm-keasnzmi 250-250-65 MG tablet Take 1 tablet by [...] injection 1,000 mcg 1,000 mcg Intramuscular Weekly Roebrta Alex MD 1,000 mcg at 03/04/20 1209 [...] was strongly advised to follow-up with her highway patrol pilot/GYN and also close monitoring on blood counts. [...] st Contact Info) Description 09/25/2024 11:30 AM RESIDENCE COUNSELOR Appointment [facility] [address] [place] [address] Roberta Alex MD [address] [place], [place] [id number] 09/25/2024 11:40 AM RESIDENCE COUNSELOR Office Visit [facility] [address] [place] [address] Roberta Alex MD [address] [place] [id number] documented as of this encounter Results * (ABNORMAL) CBC W/DIFF AUTOMATED (03/25/2020 11:45 AM CDT) WBC 8.6 4.5 - 10.8 x10'3/uL 03/25/2020 12:05 PM CDT [facility] RBC 4.05(L) 4.10 - 5.40 x10'6/uL 03/25/2020 12:05 PM CDT [facility] HGB 10.8(L) 12.0 - 16.0 G/DL 03/25/2020 12:05 PM CDT [facility] HCT 34.3(L) 36.0 - 47.0 % 03/25/2020 12:05 PM CDT [facility] MCV 84.7 78.0 - 100.0 FL 03/25/2020 12:05 PM CDT [facility] MCH 26.7(L) 27.0 - 31.0 PG 03/25/2020 12:05 PM CDT [facility] MCHC 31.5(L) 33.0 - 36.0 G/DL 03/25/2020 12:05 PM CDT [facility] RDW 20.8(H) 11.5 - 14.5 % 03/25/2020 12:05 PM CDT [facility] PLT 35(L) 150 - 350 x10'3/uL 03/25/2020 12:05 PM CDT [facility] MPV RESULTS NOT AVAILABLE 7.4 - 10.4 FL 03/25/2020 12:05 PM CDT [facility] DIFFERENTIAL COMMENT NORMAL REFERENCE RANGE NOT ESTABLISHED FOR THE PROPORTIONAL LEUKOCYTE DIFFERENTIAL. 03/25/2020 12:05 PM CDT [facility] SEG NEUTROPHILS 77.0 % 0 12:31 PM CDT [facility] LYMPHOCYTES 15.4 % 03/25/2020 12:31 PM CDT [facility] MONOCYTES 5.5 % 03/25/2020 12:31 PM CDT [facility] EOSINOPHILS 0.9 % 03/25/2020 12:31 PM CDT [facility] BASOPHILS 0.5 % 03/25/2020 12:31 PM CDT [facility] IMMATURE GRANS % 0.7 % 03/25/20 20 12:31 PM CDT [facility] NRBC 0.0 % 03/25/2020 12:31 PM CDT [facility] ABS. NEUTROPHILS 6.63 1.60 - 8.30 x10'3/uL 03/25/2020 12:31 PM CDT [facility] ABS. LYMPHOCYTES 1.32 0.80 - 4.70 x10'3/uL 03/25/2020 12:31 PM CDT [facility] ABS. MONOCYTES 0.47 0.00 - 1.50 x10'3/uL 03/25/2020 12:31 PM CDT [facility] ABS. EOSINOPHILS 0.08 0.00 - 0.40 x10'3/uL 03/25/2020 12:31 PM CDT [facility] ABS. BASOPHILS 0.04 0.00 - 0.20 x10'3/uL 03/25/2020 12:31 PM CDT [facility] ABS. IMMATURE GRANULOCYTES 0.06(H) 0.00 - 0.03 x10'3/uL 03/25/2020 12:31 PM CDT [facility] ABS. NUCLEATED RBC'S 0.00 0.00 x10'3/uL 03/25/2020 12:31 PM CDT [facility] PLT MORPH. DECREASED 03/25/2020 12:31 PM CDT [facility] RBC MORPHOLOGY 2+ 03/25/2020 12:31 PM CDT [facility] Comment: ANISOCYTOSIS 1+ MICROCYTES 1+ POIKILOCYTOSIS 03/25/2020 11:4 5 AM CDT Roberta Alex MD LABORATORY Final Result Performing Organization Address City/[facility]/ZIP Co de Phone Number [facility] [address] [place] [address], * VITAMIN B-12 (03/25/2020 11:45 AM CDT) Pathologist [facility] VITAMIN B12 S/P/B 326 193 - 986 PG/ML 03/26/2020 5:07 PM CDT [facility] 03/25/2020 11:4 5 AM CDT Roberta Alex MD LABORATORY Final Result Performing Organization Address City/[facility]/ZIP Co de Phone Number [facility] [address] [place] [address], [phone] * (ABNORMAL) CARDIOLIPIN ANTIBODIES (IGG,IGA,IGM) (03/25/2020 11:45 AM CDT) CARDIOLIPIN AB IGG <14 <=14 GPL 2019 9:25 PM CDT [employer] JUSTIN PEACE Comment: Cardiolipin Ab (IgG) Reference Range: Value ? Interpretation ? < or = 14 ? Negative 15 - 20 ? Indeterminate 21 - 80 ? Low to Medium Positive > 80 ?High Positive CARDIOLIPIN AB IGM 37(H) <=12 MPL 2019 9:25 PM CDT [employer] JUSTIN PEACE Comment: Cardiolipin Ab (IgM) Reference [...] drug therapy or aging. Test Performed by [employer], [employer] [facility], [address] [place] [address] Hank Landin M.D., Ph.D., Director of Laboratories , [facility] [id number] CARDIOLIPIN AB IGA <11 <=11 APL 2019 9:25 PM CDT [employer] JUSTIN PEACE Comment: Cardiolipin Ab (IgA) Reference Range: Value ? Interpretation ? < or = 11 ? Negative 12 - 20 ? Indeterminate 21 - 80 ? 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
--- OUTSIDE RECORDS SUMMARY | 2024-07-11 10:02 | XMS_ITS | Encounter Summary ---
Author Organization [facility] Address On license of [facility] [place] [address] [place] [address] Care Team Providers Care Cutter Inspector Name Role Phone Alejandro Blevins MD Primary Care Provider [phone] Encounter Details Date Type Department Care Team (Latest Contact Info) Description 03/25/2020 11:15 AM CDT - 03/25/2020 11:59 PM CDT Hospital Encounter [address] [place] [address] Roberta Alex MD [address] [place], [place] [address] Discharge Disposition: Home or Self Care (Routine Discharge) Social History Tobacco Use Types Packs/Day Years Used Date Smoking Tobacco: Every Day Smokeless Tobacco: Never Comments Yes Sex and Gender Information Value Date Recorded Sex Assigned at Not on file Legal Sex Female 11:30 PM BANK MANAGER Gender Identity Female 11/10/2021 3:09 PM [...] st Contact Info) Description 09/25/2024 11:30 AM BANK MANAGER Appointment [facility] Pending [facility] to [facility] [address] Roberta Alex MD [address] [place] [address] 09/25/2024 11:40 AM BANK MANAGER Office [facility] [place] [address] Roberta Alex MD [address] [place] [address] documented as of this encounter Procedures Procedure [...] 10.8 x10'3/uL 03/25/2020 12:05 PM CDT [facility] RBC 4.05(L) 4.10 - 5.40 x10'6/uL 03/25/2020 12:05 PM CDT [facility] HGB 10.8(L) 12.0 - 16.0 G/DL 03/25/2020 12:05 PM CDT [facility] HCT 34.3(L) 36.0 - 47.0 % 03/25/2020 12:05 PM CDT [facility] MCV 84.7 78.0 - 100.0 FL 03/25/2020 12:05 PM CDT [facility] MCH 26.7(L) 27.0 - 31.0 PG 03/25/2020 12:05 PM CDT [facility] MCHC 31.5(L) 33.0 - 36.0 G/DL 03/25/2020 12:05 PM CDT [facility] RDW 20.8(H) 11.5 - 14.5 % 03/25/2020 12:05 PM CDT [facility] PLT 35(L) 150 - 350 x10'3/uL 03/25/2020 12:05 PM CDT [facility] MPV RESULTS NOT AVAILABLE 7.4 - 10.4 FL 03/25/2020 12:05 PM CDT [facility] DIFFERENTIAL COMMENT NORMAL REFERENCE RANGE NOT ESTABLISHED FOR THE PROPORTIONAL LEUKOCYTE DIFFERENTIAL. 03/25/2020 12:05 PM CDT [facility] SEG NEUTROPHILS 77.0 % 0 12:31 PM CDT [facility] LYMPHOCYTES 15.4 % 03/25/2020 12:31 PM CDT [facility] MONOCYTES 5.5 % 03/25/2020 12:31 PM CDT [facility] EOSINOPHILS 0.9 % 03/25/2020 12:31 PM CDT [facility] BASOPHILS 0.5 % 03/25/2020 12:31 PM CDT [facility] IMMATURE GRANS % 0.7 % 03/25/20 20 12:31 PM CDT [facility] NRBC 0.0 % 03/25/2020 12:31 PM CDT [facility] ABS. NEUTROPHILS 6.63 1.60 - 8.30 x10'3/uL 03/25/2020 12:31 PM CDT [facility] ABS. LYMPHOCYTES 1.32 0.80 - 4.70 x10'3/uL 03/25/2020 12:31 PM CDT [facility] ABS. MONOCYTES 0.47 0.00 - 1.50 x10'3/uL 03/25/2020 12:31 PM CDT [facility] ABS. EOSINOPHILS 0.08 0.00 - 0.40 x10'3/uL 03/25/2020 12:31 PM CDT [facility] ABS. BASOPHILS 0.04 0.00 - 0.20 x10'3/uL 03/25/2020 12:31 PM CDT [facility] ABS. IMMATURE GRANULOCYTES 0.06(H) 0.00 - 0.03 x10'3/uL 03/25/2020 12:31 PM CDT [facility] ABS. NUCLEATED RBC'S 0.00 0.00 x10'3/uL 03/25/2020 12:31 PM CDT [facility] PLT MORPH. DECREASED 03/25/2020 12:31 PM CDT [facility] RBC MORPHOLOGY 2+ 03/25/2020 12:31 PM CDT [facility] Comment: ANISOCYTOSIS 1+ MICROCYTES 1+ POIKILOCYTOSIS 03/25/2020 11:4 5 AM CDT us Roberta Alex MD LABORATORY Final Result [facility] [address] [place] [address], * VITAMIN B-12 (03/25/2020 11:45 AM CDT) VITAMIN B12 S/P/B 326 193 - 986 PG/ML 03/26/2020 5:07 PM CDT [facility] 03/25/2020 11:4 5 AM CDT Roberta Alex MD LABORATORY Final Result [facility] [address] [place] [address], [id number] * (ABNORMAL) CARDIOLIPIN ANTIBODIES (IGG,IGA,IGM) (03/25/2020 11:45 AM CDT) CARDIOLIPIN AB IGG <14 <=14 GPL 2019 9:25 PM CDT [employer] [facility]ARLETT PEACE Comment: Cardiolipin Ab (IgG) Reference Range: Value ? Interpretation ? < or = 14 ? Negative 15 - 20 ? Indeterminate 21 - 80 ? Low to Medium Positive > 80 ?High Positive CARDIOLIPIN AB IGM 37(H) <=12 MPL 2019 9:25 PM CDT [employer] JUSTIN PEACE Comment: Cardiolipin Ab (IgM) Reference [...] drug therapy or aging. Test Performed by [employer], [employer] [facility], [address] [place] [address] Hank Landin M.D., Ph.D., Director of Laboratories , [facility] [id number] CARDIOLIPIN AB IGA <11 <=11 APL 2019 9:25 PM CDT [employer] PILLAITERESAMARILIA HASMUKH Comment: Cardiolipin Ab (IgA) Reference Range: Value ? Interpretation ? < or = 11 ? Negative 12 - 20 ? Indeterminate 21 - 80 ? Low to Medium Positive > 80 ?High Positive 03/25/2020 11:4 5 AM CDT Roberta Alex MD LABORATORY Final Result [employer] [address] [id number], documented in this encounter Visit Diagnoses Diagnosis Anti-cardiolipin antibody positive Other and unspecified nonspecific immunological findings Other dietary vitamin B12 deficiency anemia Iron deficiency anemia secondary to inadequate dietary iron intake documented in this encounter Care Teams Cutter Inspector Relationship Specialty Start Date End Date Alejandro Blevins MD PCP - General FAMILY PRACTICE 12/10/19 documented as of this encounter
--- OUTSIDE RECORDS SUMMARY | 2024-07-11 10:02 | XMS_ITS | Encounter Summary ---
Author Organization [facility] Address [address] [place] [address]. [place] [address] [place] [address] Care Team Providers Care Banking Supervisor Name Role Phone Alejandro Blevins MD Primary Care Provider [phone] Encounter Details Date Type Department Care Team (Latest Contact Info) Description 07/08/2020 Travel Social History Tobacco Use Types Packs/Day Years Used Date Smoking Tobacco: Every Day Smokeless Tobacco: Never Comments Yes Sex and Gender Information Value Date Recorded Sex Assigned at Not on file Legal Sex Female 11:30 PM NEWS VIDEO EDITOR Gender Identity Female 11/10/2021 3:09 PM CDT Sexual Orientation Straight 11/10/2021 3: 09 PM CDT COVID-19 Exposure Response Date Recorded In the last month, have you been in contact with someone who was confirmed or suspected to have Coronavirus / COVID-19? No / Unsure 07/08/2020 11:36 AM NEWS VIDEO EDITOR documented as of this encounter Plan of Treatment Upcoming Encounters Date Type Department Care Team (Late st Contact Info) Description 09/25/2024 11:30 AM NEWS VIDEO EDITOR Appointment [facility] [address] [place] [address] Roberta Alex MD [address] [place] [address] 09/25/2024 11:40 AM NEWS VIDEO EDITOR Office Visit [facility] [address] [place] [address] Roberta Alex MD [address] [place] [address] documented as of this encounter Visit Diagnoses Not on filedocumented in this encounter Care Teams Banking Supervisor Relationship Specialty Start Date End Date Alejandro Blevins MD PCP - General FAMILY PRACTICE 12/10/19 documented as of this encounter
--- OUTSIDE RECORDS SUMMARY | 2024-07-11 10:02 | XMS_ITS | Encounter Summary ---
Author Organization [facility] Address [address] [place] [address]. [place], [place] [address] [place] [address] Care Team Providers Care Label Printer Name Role Phone Alejandro Blevins MD Primary Care Provider [phone] Encounter Details Date Type Department Care Team (Latest Contact Info) Description 04/16/2020 Travel Social History Tobacco Use Types Packs/Day Years Used Date Smoking Tobacco: Every Day Smokeless Tobacco: Never Comments Yes Sex and Gender Information Value Date Recorded Sex Assigned at Not on file Legal Sex Female 11:30 PM GRADE SETTER Gender Identity Female 11/10/2021 3:09 PM [...] st Contact Info) Description 09/25/2024 11:30 AM GRADE SETTER Appointment [facility] [address] [place] [address] Roberta Alex MD [address] [place] [address] 09/25/2024 11:40 AM GRADE SETTER Office Visit [facility] [address] [place] [address] Roberta Alex MD [address] [place] [address] documented as of this encounter Visit Diagnoses Not on filedocumented in this encounter Care Teams Label Printer Relationship Specialty Start Date End Date Alejandro Blevins MD PCP - General FAMILY PRACTICE 12/10/19 documented as of this encounter
--- OUTSIDE RECORDS SUMMARY | 2024-07-11 10:02 | XMS_ITS | Encounter Summary ---
Author Organization [facility] Address [address] [place] [address]. [place] [address] [place] [address] Care Team Providers Care Pre Assembly Wirer Name Role Phone Alejandro Blevins MD Primary Care Provider [phone] Reason for Visit * Reason Onset Date Comments Appointment Request 04/15/2020 Encounter Details Date Type Department Care Team ([facility] Contact Info) Description 04/15/2020 Telephone [facility] [place] [address] Socorro Kenyon, RN Appointment Request Social History Tobacco Use Types Packs/Day Years Used Date Smoking Tobacco: Every Day Smokeless Tobacco: Never Comments Yes Sex and Gender Information Value Date Recorded Sex Assigned at Not on file Legal Sex Female 11:30 PM ELECTRICAL ENGINEER Gender Identity Female 11/10/2021 3:09 PM [...] (Late Contact Info) Description 09/25/2024 11:30 AM ELECTRICAL ENGINEER Appointment [facility] [place] [address] Roberta Alex MD [address] [place] [address] 09/25/2024 11:40 AM ELECTRICAL ENGINEER Office Visit [facility] [place] [address] Roberta Alex MD [address] [place] [address] documented as of this encounter Visit Diagnoses Not on filedocumented in this encounter Care Teams Pre Assembly Wirer Relationship Specialty Start Date End Date Alejandro Blevins MD PCP - General FAMILY PRACTICE 12/10/19 documented as of this encounter
--- OUTSIDE RECORDS SUMMARY | 2024-07-11 10:02 | XMS_ITS | Encounter Summary ---
Author Organization [facility] Address [address] [place] [address]. [place] [address] [place] [address] Care Team Providers Care Amphibious Operations Officer Name Role Phone Alejandro Blevins MD Primary Care Provider Encounter Details Date Type Department Care Team (Latest Contact Info) Description 07/21/2020 12:03 PM DESILVERIZER - 07/21/2020 11:59 PM DESILVERIZER Hospital Encounter [address] [place] [address] Roberta Alex MD [address] [place], [place] [address] Discharge Disposition: Home or Self Care (Routine Discharge) Social History Tobacco Use Types Packs/Day Years Used Date Smoking Tobacco: Every Day Smokeless Tobacco: Never Comments Yes Sex and Gender Information Value Date Recorded Sex Assigned at Not on file Legal Sex Female 11:30 PM DESILVERIZER Gender Identity Female 11/10/2021 3:09 PM CDT Sexual Orientation Straight 11/10/2021 3: 09 PM CDT COVID-19 Exposure Response Date Recorded In the last month, have you been in contact with someone who was confirmed or suspected to have Coronavirus / COVID-19? No / Unsure 07/21/2020 12:03 PM DESILVERIZER documented as of this encounter Medications at [...] st Contact Info) Description 09/25/2024 11:30 AM DESILVERIZER Appointment [facility] [place] [address] Roberta Alex MD [address] [place] [address] 09/25/2024 11:40 AM DESILVERIZER Office Visit [facility] [place] [address] Roberta Alex MD [address] [place] [address] documented as of this encounter Procedures Procedure Name Priority Date/Time Associated Diagnosis Comments CBC W/DIFF AUTOMATED Routine 07/21/2020 12:20 PM DESILVERIZER Acute ITP (CMS/HCC HHS/HCC) documented in this encounter Results * (ABNORMAL) CBC W/DIFF AUTOMATED (07/21/2020 12:20 PM DESILVERIZER) WBC 9.5 4.5 - 10.8 x10'3/uL 07/21/2020 12:29 PM DESILVERIZER [facility] RBC 4.69 4.10 - 5.40 x10'6/uL 07/21/2020 12:29 PM [facility] HGB 13.0 12.0 - 16.0 G/DL 07/21/2020 12:29 PM [facility] HCT 42.1 36.0 - 47.0 % 07/21/2020 12:29 PM [facility] MCV 89.8 78.0 - 100.0 FL 07/21/2020 12:29 PM [facility] MCH 27.7 27.0 - 31.0 PG 07/21/2020 12:29 PM [facility] MCHC 30.9(L) 33.0 - 36.0 G/DL 07/21/2020 12:29 PM [facility] RDW 14.4 11.5 - 14.5 % 07/21/2020 12:29 PM [facility] PLT 28(LL) 150 - 350 x10'3/uL 07/21/2020 12:29 PM [facility] Comment: CRITICAL VALUE CALLED TO MARIUM AT 1228 READ BACK AND VERIFIED RESULT CHECKED MPV RESULTS NOT AVAILABLE 7.4 - 10.4 FL 07/21/2020 12:29 PM [facility] DIFFERENTIAL COMMENT NORMAL REFERENCE RANGE NOT ESTABLISHED FOR THE PROPORTIONAL LEUKOCYTE DIFFERENTIAL. 07/21/2020 12:29 PM [facility] SEG NEUTROPHILS 62.3 % 0 12:39 PM [facility] LYMPHOCYTES 24.6 % 07/21/2020 12:39 PM [facility] MONOCYTES 4.6 % 07/21/2020 12:39 PM [facility] EOSINOPHILS 7.3 % 07/21/2020 12:39 PM [facility] BASOPHILS 0.8 % 07/21/2020 12:39 PM [facility] IMMATURE GRANS % 0.4 % 07/21/20 20 12:39 PM [facility] NRBC 0.0 % 07/21/2020 12:39 PM [facility] ABS. NEUTROPHILS 5.92 1.60 - 8.30 x10'3/uL 07/21/2020 12:39 PM DESILVERIZER [facility] ABS. LYMPHOCYTES 2.34 0.80 - 4.70 x10'3/uL 07/21/2020 12:39 PM DESILVERIZER [facility] ABS. MONOCYTES 0.44 0.00 - 1.50 x10'3/uL 07/21/2020 12:39 PM DESILVERIZER [facility] ABS. EOSINOPHILS 0.69(H) 0.00 - 0.40 x10'3/uL 07/21/2020 12:39 PM DESILVERIZER [facility] ABS. BASOPHILS 0.08 0.00 - 0.20 x10'3/uL 07/21/2020 12:39 PM DESILVERIZER [facility] ABS. IMMATURE GRANULOCYTES 0.04(H) 0.00 - 0.03 x10'3/uL 07/21/2020 12:39 PM DESILVERIZER [facility] ABS. NUCLEATED RBC'S 0.00 0.00 x10'3/uL 07/21/2020 12:39 PM DESILVERIZER [facility] PLT MORPH. 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
--- OUTSIDE RECORDS SUMMARY | 2024-07-11 10:02 | XMS_ITS | Encounter Summary ---
Author Organization [facility] Address [address] [place] [address]. [place] [address] [place] [address] Care Team Providers Care Centrifugal Operator Name Role Phone Alejandro Blevins MD Primary Care Provider [phone] Encounter Details Date Type Department Care Team (Latest Contact Info) Description 05/13/2020 Travel Social History Tobacco Use Types Packs/Day Years Used Date Smoking Tobacco: Every Day Smokeless Tobacco: Never Comments Yes Sex and Gender Information Value Date Recorded Sex Assigned at Not on file Legal Sex Female 11:30 PM PARTS ORDER AND STOCK CLERK Gender Identity Female 11/10/2021 3:09 PM [...] Contact Info) Description 09/25/2024 11:30 AM PARTS ORDER AND STOCK CLERK Appointment [facility] [address] [place] [address] Roberta Alex MD [address] [place] [address] 09/25/2024 11:40 AM PARTS ORDER AND STOCK CLERK Office Visit [facility] [address] [place] [address] Roberta Alex MD [address] [place] [address] documented as of this encounter Visit Diagnoses Not on filedocumented in this encounter Care Teams Centrifugal Operator Relationship Specialty Start Date End Date Alejandro Blevins MD PCP - General FAMILY PRACTICE 12/10/19 documented as of this encounter
--- OUTSIDE RECORDS SUMMARY | 2024-07-11 10:02 | XMS_ITS | Encounter Summary ---
Author Organization [facility] Address [address] [place] [address]. [place] [address] [place] [address] Care Team Providers Care Compound Specialist Name Role Phone Alejandro Blevins MD Primary Care Provider [phone] Encounter Details Date Type Department Care Team (Latest Contact Info) Description 07/21/2020 Travel Social History Tobacco Use Types Packs/Day Years Used Date Smoking Tobacco: Every Day Smokeless Tobacco: Never Comments Yes Sex and Gender Information Value Date Recorded Sex Assigned at Not on file Legal Sex Female 11:30 PM CHANNEL MARKETING MANAGER Gender Identity Female 11/10/2021 3:09 PM CDT Sexual Orientation Straight 11/10/2021 3: 09 PM CDT COVID-19 Exposure Response Date Recorded In the last month, have you been in contact with someone who was confirmed or suspected to have Coronavirus / COVID-19? No / Unsure 07/21/2020 12:03 PM CHANNEL MARKETING MANAGER documented as of this encounter Plan of Treatment Upcoming Encounters Date Type Department Care Team (Late st Contact Info) Description 09/25/2024 11:30 AM CHANNEL MARKETING MANAGER Appointment [facility] [address] [place] [address] Roberta Alex MD [address] [place] [address] 09/25/2024 11:40 AM CHANNEL MARKETING MANAGER Office Visit [facility] [address] [place] [address] Roberta Alex MD [address] [place] [address] documented as of this encounter Visit Diagnoses Not on filedocumented in this encounter Care Teams Compound Specialist Relationship Specialty Start Date End Date Alejandro Blevins MD PCP - General FAMILY PRACTICE 12/10/19 documented as of this encounter
--- OUTSIDE RECORDS SUMMARY | 2024-07-11 10:02 | XMS_ITS | Encounter Summary ---
Author Organization [facility] Address [address] [place] [address]. [place] [address] [place] [address] Care Team Providers Care Electrical/Instrument Technician Name Role Phone Alejandro Blevins MD Primary Care Provider [phone] Reason for Visit * Reason Comments Infusion Therapy * Treatment/Therapy Plan Authorization (Routine) - Closed Specialty Diagnoses / Procedures Referred By Contac t Referred To Contact Diagnoses Iron deficiency anemia secondary to inadequate dietary iron intake Procedures IRON SUCROSE INJ, 20 MG Roberta Alex MD [address] [place] [address] Phone: tel: fax: [facility] [place] [address] Phone: tel: Referral ID Status Reason Start Date Expiration Date Visits Re quested Visits Authorized [id number] Closed 12/19/2019 04/23/2020 1 3 Encounter Details Date Type Department Care Team (Latest Contact Info) Description 02/22/2020 11:00 AM CDT - 02/22/2020 11:59 PM CDT Hospital Encounter [facility] [place] [address] Roberta Alex MD [address] [place] [address] Infusion Therapy Discharge Disposition: Home or Self Care (Routine Discharge) Social History Tobacco Use Types Packs/Day Years Used Date Smoking Tobacco: Every Day Smokeless Tobacco: Never Comments Yes Sex and Gender Information Value Date Recorded Sex Assigned at Not on file Legal Sex Female 11:30 PM OPERATIONS ASSISTANT Gender Identity Female 11/10/2021 3:09 PM [...] st Contact Info) Description 09/25/2024 11:30 AM OPERATIONS ASSISTANT Appointment [facility] [address] [place] [address] Roberta Alex MD [address] [place] [address] 09/25/2024 11:40 AM OPERATIONS ASSISTANT Office Visit [facility] [place] [address] Roberta Alex MD [address] [place] [address] documented as of this encounter Visit Diagnoses [...] mL/hr documented in this encounter Care Teams Electrical/Instrument Technician Relationship Specialty Start Date End Date Alejandro Blevins MD PCP - General FAMILY PRACTICE 12/10/19 documented as of this encounter
--- OUTSIDE RECORDS SUMMARY | 2024-07-11 10:02 | XMS_ITS | Encounter Summary ---
Author Organization [facility] Address [address] [place] [address]. [place] [address] [place] [address] Care Team Providers Care Cigar Making Machine Operator Name Role Phone Alejandro Blevins MD Primary Care Provider [phone] Reason for Visit * Reason Comments Follow Up Lab Results Encounter Details Date Type Department Care Team ([facility] st Contact Info) Description 07/08/2020 11:40 AM ELECTRIC REFRIGERATOR SERVICER Office Visit [address] [place] [address] Roberta Alex MD [address] [place] [address] Follow Up; Lab Results Social History Tobacco Use Types Packs/Day Years Used Date Smoking Tobacco: Every Day Smokeless Tobacco: Never Comments Yes Sex and Gender Information Value Date Recorded Sex Assigned at Not on file Legal Sex Female 11:30 PM ELECTRIC REFRIGERATOR SERVICER Gender Identity Female 11/10/2021 3:09 PM CDT Sexual Orientation Straight 11/10/2021 3: 09 PM CDT COVID-19 Exposure Response Date Recorded In the last month, have you been in contact with someone who was confirmed or suspected to have Coronavirus / COVID-19? No / Unsure 07/08/2020 11:36 AM ELECTRIC REFRIGERATOR SERVICER documented as of this encounter Last Filed Vital Signs Vital Sign Reading Time Taken Comments Blood Pressure 141/110 07/08/2020 12:06 PM ELECTRIC REFRIGERATOR SERVICER Pulse 88 07/08/2020 12:06 PM ELECTRIC REFRIGERATOR SERVICER Temperature 36.9 ??C (98.4 ??F) 07/08/2020 12:[address] Respiratory Rate 24 07/08/2020 12:06 PM ELECTRIC REFRIGERATOR SERVICER Oxygen Saturation - - Inhaled Oxygen Concentration - - Weight 59 kg (130 lb 1.1 oz) 07/08/2020 12:06 PM ELECTRIC REFRIGERATOR SERVICER Height 165.1 cm (5' 5 ) 07/08/2020 12:06 PM ELECTRIC REFRIGERATOR SERVICER Body Mass Index 21.64 07/08/2020 12:06 PM ELECTRIC REFRIGERATOR SERVICER documented in this encounter Progress Notes * [...] month. 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 Patient has history of chronic thrombocytopenia and iron deficiency and followed with [facility] frame bander Dr. Dick Bonilla 5 years ago. She [...] recently started treatment for hepatitis C with [facility] hepatology.Denied any fevers, bleeding, new changes in [...] by mouth daily. 30 tablet 2 ??? ngswpqy-iphjymlptisyb-jnfmsvrq 250-250-65 MG tablet Take 1 tablet by [...] [facility]. 4. Polysubstance abuse, [...] Roberta Alex MD CC: Alejandro Blevins MD TRIC REFRIGERATOR SERVICER documented in this encounter Plan of Treatment Upcoming Encounters Date Type Department Care Team (Late st Contact Info) Description 09/25/2024 11:30 AM ELECTRIC REFRIGERATOR SERVICER Appointment [facility] [place] [address] Roberta Alex MD [address] [place] [address] 09/25/2024 11:40 AM ELECTRIC REFRIGERATOR SERVICER Office Visit [facility] [place] [address] [place] [address] Roberta Alex MD [address] [place] [address] documented as of this encounter Procedures Procedure Name Priority Date/Time Associated Diagnosis Comments COMPREHENSIVE METABOLIC PANEL Routine 07/08/2020 11:55 AM ELECTRIC REFRIGERATOR SERVICER Acute ITP (CMS/HCC HHS/HCC) documented in this encounter Results * (ABNORMAL) CBC W/DIFF AUTOMATED (07/21/2020 12:20 PM ELECTRIC REFRIGERATOR SERVICER) WBC 9.5 4.5 - 10.8 x10'3/uL 07/21/2020 12:29 PM [facility] RBC 4.69 4.10 - 5.40 x10'6/uL 07/21/2020 12:29 PM [facility] HGB 13.0 12.0 - 16.0 G/DL 07/21/2020 12:29 PM [facility] HCT 42.1 36.0 - 47.0 % 07/21/2020 12:29 PM [facility] MCV 89.8 78.0 - 100.0 FL 07/21/2020 12:29 PM [facility] MCH 27.7 27.0 - 31.0 PG 07/21/2020 12:29 PM [facility] MCHC 30.9(L) 33.0 - 36.0 G/DL 07/21/2020 12:29 PM [facility] RDW 14.4 11.5 - 14.5 % 07/21/2020 12:29 PM [facility] PLT 28(LL) 150 - 350 x10'3/uL 07/21/2020 12:29 PM [facility] Comment: CRITICAL VALUE CALLED TO MARIUM AT 1228 READ BACK AND VERIFIED RESULT CHECKED MPV RESULTS NOT AVAILABLE 7.4 - 10.4 FL 07/21/2020 12:29 PM [facility] DIFFERENTIAL COMMENT NORMAL REFERENCE RANGE NOT ESTABLISHED FOR THE PROPORTIONAL LEUKOCYTE DIFFERENTIAL. 07/21/2020 12:29 PM [facility] SEG NEUTROPHILS 62.3 % 0 12:39 PM [facility] LYMPHOCYTES 24.6 % 07/21/2020 12:39 PM [facility] MONOCYTES 4.6 % 07/21/2020 12:39 PM [facility] EOSINOPHILS 7.3 % 07/21/2020 12:39 PM [facility] BASOPHILS 0.8 % 07/21/2020 12:39 PM [facility] IMMATURE GRANS % 0.4 % 07/21/20 20 12:39 PM [facility] NRBC 0.0 % 07/21/2020 12:39 PM [facility] ABS. NEUTROPHILS 5.92 1.60 - 8.30 x10'3/uL 07/21/2020 12:39 PM [facility] ABS. LYMPHOCYTES 2.34 0.80 - 4.70 x10'3/uL 07/21/2020 12:39 PM [facility] ABS. MONOCYTES 0.44 0.00 - 1.50 x10'3/uL 07/21/2020 12:39 PM [facility] ABS. EOSINOPHILS 0.69(H) 0.00 - 0.40 x10'3/uL 07/21/2020 12:39 PM [facility] ABS. BASOPHILS 0.08 0.00 - 0.20 x10'3/uL 07/21/2020 12:39 PM [facility] ABS. IMMATURE GRANULOCYTES 0.04(H) 0.00 - 0.03 x10'3/uL 07/21/2020 12:39 PM [facility] ABS. NUCLEATED RBC'S 0.00 0.00 x10'3/uL 07/21/2020 12:39 PM [facility] PLT MORPH. DECREASED 07/21/2020 12:39 PM [facility] RBC MORPHOLOGY 1+ 07/21/2020 12:39 PM [facility] Comment:POIKILOCYTOSIS 07/21/2020 12:2 0 PM ELECTRIC REFRIGERATOR SERVICER us Roberta Alex MD LABORATORY Final Result [facility] [address] [place] [address], * (ABNORMAL) COMPREHENSIVE METABOLIC PANEL (07/08/2020 11:55 AM [facility]) SODIUM S/P/B 140 136 - 145 MMOL/L 07/08/2020 12:58 PM [facility] POTASSIUM S/P/B 4.2 3.5 - 5.1 MMOL/L 07/08/2020 12:58 PM [facility] CHLORIDE S/P/B 103 98 - 107 MMOL/L 07/08/2020 12:58 PM [facility] CO2 26.4 21.0 - 32.0 MMOL/L 07/08/2020 12:58 PM [facility] GLUCOSE 83 70 - 99 MG/DL 07/08/2020 12:58 PM [facility] Comment: FASTING GLUCOSE 100 TO 125 MG/DL IS CONSISTENT WITH IMPAIRED FASTING GLUCOSE. FASTING GLUCOSE >125 MG/DL IS CONSISTENT WITH DIABETES. RANDOM GLUCOSE >200 MG/DL WITH HYPERGLYCEMIC SYMPTOMS IS CONSISTENT WITH DIABETES. PER ADA GUIDELINES BUN 16 6 - 24 MG/DL 07/08/2020 12:58 PM [facility] CREATININE S/P/B 0.70 0.55 - 1.02 MG/DL 07/08/2020 12:58 PM [facility] CALCIUM S/P/B 9.2 8.4 - 10.5 MG/DL 07/08/2020 12:58 PM [facility] BILIRUBIN TOTAL S/P/B 0.3 0.2 - 1.0 MG/DL 07/08/2020 12:58 PM [facility] Comment: THIS ASSAY IS NOT RECOMMENDED FOR PATIENTS UNDERGOING TREATMENT WITH ELTROMBOPAG DUE TO THE POTENTIAL FOR FALSELY ELEVATED RESULTS. ALKALINE PHOSPHATASE S/P/B 75 37 - 98 U/L 07/08/2020 12:58 PM [facility] AST 30 15 - 37 U/L 07/08/2020 12:58 PM [facility] ALT 93(H) 14 - 59 U/L 07/08/2020 12:58 PM [facility] TOTAL PROTEIN S/P/B 7.6 6.4 - 8.2 G/DL 07/08/2020 12:58 PM [facility] ALBUMIN S/P/B 4.1 3.4 - 5.0 G/DL 07/08/2020 12:58 PM [facility] ANION GAP 10.6 5.0 - 15.0 MMOL/L 07/08/2020 12:58 PM [facility] OSMOLALITY (CALC) 290 MOSM/KG 020 12:58 PM [facility] Comment:REFERENCE RANGE NOT ESTABLISHED EGFR NON-AFR. AMER. >90 >89 ML/MIN/1. 73 M2 07/08/2020 12:58 PM [facility] EGFR AFR. AMER. >90 >89 ML/MIN/1. 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
--- OUTSIDE RECORDS SUMMARY | 2024-07-11 10:02 | XMS_ITS | Encounter Summary ---
Author Organization [facility] Address [address] [place] [address]. [place] [address] [place] [address] Care Team Providers Care Rifle Case Repairer Name Role Phone Alejandro Blevins MD Primary Care Provider [phone] Reason for Visit * Reason Comments Infusion Therapy Injection * Treatment/Therapy Plan Authorization (Routine) - Closed Specialty Diagnoses / Procedures Referred By Contac t Referred To Contact Diagnoses Iron deficiency anemia secondary to inadequate dietary iron intake Procedures IRON SUCROSE INJ, 20 MG Roberta lAex MD [address] [place] [address] Phone: tel: fax: [facility] [place] [address] Phone: tel: Referral ID Status Reason Start Date Expiration Date Visits Re quested Visits Authorized [id number] Closed 12/19/2019 04/23/2020 1 3 Encounter Details Date Type Department Care Team (Latest Contact Info) Description 03/14/2020 10:30 AM CDT - 03/14/2020 11:59 PM T Hospital Encounter [facility] [place] [address] Roberta Alex MD [address] [place] [address] Infusion Therapy; Injection Discharge Disposition: Home or Self Care (Routine Discharge) Social History Tobacco Use Types Packs/Day Years Used Date Smoking Tobacco: Every Day Smokeless Tobacco: Never Comments Yes Sex and Gender Information Value Date Recorded Sex Assigned at Not on file Legal Sex Female 11:30 PM NUTRITION INTERNSHIP Gender Identity Female 11/10/2021 3:09 PM [...] Contact Info) Description 09/25/2024 11:30 AM NUTRITION INTERNSHIP Appointment [facility] [address] [place] [address] Roberta Alex MD [address] [place] [address] 09/25/2024 11:40 AM NUTRITION INTERNSHIP Office Visit [facility] [address] [place] [address] Roberta Alex MD [address] [place] [address] documented as of this encounter Visit Diagnoses [...] mL/hr documented in this encounter Care Teams Rifle Case Repairer Relationship Specialty Start Date End Date Alejandro Blevins MD PCP - General FAMILY PRACTICE 12/10/19 documented as of this encounter
--- OUTSIDE RECORDS SUMMARY | 2024-07-11 10:02 | XMS_ITS | Encounter Summary ---
Author Organization [facility] Address [address] [place] [address]. [place] [address] [place] [address] Care Team Providers Care Slubber Operator Name Role Phone Alejandro Blevins MD Primary Care Provider [phone] Reason for Visit * Reason Onset Date Comments Lab Results 02/12/2020 Encounter Details Date Type Department Care Team (Late st Contact Info) Description 02/12/[address] [place] [address] Kamilah Thompson animal care technician Results Social History Tobacco Use Types Packs/Day Years Used Date Smoking Tobacco: Every Day Smokeless Tobacco: Never Comments Yes Sex and Gender Information Value Date Recorded Sex Assigned at Not on file Legal Sex Female 11:30 PM TON CYLINDER INSPECTOR Gender Identity Female 11/10/2021 3:09 PM [...] Iron Her authorization is still pending with [facility] as of this morning, but I have [...] st Contact Info) Description 09/25/2024 11:30 AM TON CYLINDER INSPECTOR Appointment [facility] [address] [place] [address] Roberta Alex MD [address] [place] [address] 09/25/2024 11:40 AM TON CYLINDER INSPECTOR Office Visit [facility] [address] [place] [address] Roberta Alex MD [address] [place] [address] documented as of this encounter Visit Diagnoses Not on filedocumented in this encounter Care Teams Slubber Operator Relationship Specialty Start Date End Date Alejandro Blevins MD PCP - General FAMILY PRACTICE 12/10/19 documented as of this encounter
--- OUTSIDE RECORDS SUMMARY | 2024-07-11 10:02 | XMS_ITS | Encounter Summary ---
Author Organization [facility] Address [facility] [place] [address] [place] [address] Care Team Providers Care Linseed Cake Trimmer Name Role Phone Alejandro Blevins MD Primary Care Provider [phone] Encounter Details Date Type Department Care Team (Latest Contact Info) Description 04/29/2020 9:12 AM CDT - 04/29/2020 11:59 PM CDT Hospital Encounter [address] [place] [address] Roberta Alex MD [address] [place], [place] [address] Discharge Disposition: Home or Self Care (Routine Discharge) Social History Tobacco Use Types Packs/Day Years Used Date Smoking Tobacco: Every Day Smokeless Tobacco: Never Comments Yes Sex and Gender Information Value Date Recorded Sex Assigned at Not on file Legal Sex Female 11:30 PM COSTUME SPECIALIST Gender Identity Female 11/10/2021 3:09 PM [...] st Contact Info) Description 09/25/2024 11:30 AM COSTUME SPECIALIST Appointment [facility] [place] [address] Roberta Alex MD [address] [place] [address] 09/25/2024 11:40 AM COSTUME SPECIALIST Office Visit [facility] [place] [address] Roberta Alex MD [address] [place] [phone] documented as of this encounter Procedures Procedure Name Priority Date/Time Associated Diagnosis Comments IRON SAT PANEL (IRON,IBC,%SAT) Routine 04/29/2020 9:22 AM CDT Anemia Thrombocytopenia affecting ([facility] HHS/HCC) Iron deficiency anemia secondary to inadequate dietary iron intake CBC W/DIFF AUTOMATED Routine 04/29/2020 9:22 AM CDT Anemia Thrombocytopenia affecting (CMS/HCC HHS/HCC) Iron deficiency anemia secondary to inadequate dietary iron intake FERRITIN Routine 04/29/2020 9:22 AM CDT Anemia Thrombocytopenia affecting ([facility]/HCC HHS/HCC) Iron deficiency anemia secondary to inadequate dietary iron intake documented in this encounter Results * (ABNORMAL) FERRITIN (04/29/2020 9:22 AM CDT) FERRITIN 498.4(H) 8 - 252 NG/ML 04/29/2020 10:20 AM CDT [facility] 04/29/2020 9:22 AM CDT Roebrta Alex MD LABORATORY Final Result Performing Organization Address [facility] Co de Phone Number [facility] [address] [place] [address], * IRON SATURATION PNL (FE/TIBC/SAT) (04/29/2020 9:22 AM CDT) IRON 72 50 - 170 MCG/DL 04/29/2020 9:59 AM CDT [facility] IRON BINDING CAPACITY 422 250 - 450 MCG/DL 04/29/2020 9:59 AM CDT [facility] IRON SATURATION 17 % 0 9:59 AM CDT [facility] Comment:REFERENCE RANGE NOT ESTABLISHED 04/29/2020 9:22 AM CDT Roberta Alex MD LABORATORY Final Result Performing Organization Address [facility] de Phone Number [facility] [address] [place] [address], * (ABNORMAL) CBC W/DIFF AUTOMATED (04/29/2020 9:22 AM CDT) WBC 10.5 4.5 - 10.8 x10'3/uL 04/29/2020 9:42 AM CDT [facility] RBC 3.79(L) 4.10 - 5.40 x10'6/uL 04/29/2020 9:42 AM CDT [facility] HGB 11.3(L) 12.0 - 16.0 G/DL 04/29/2020 9:42 AM CDT [facility] HCT 36.2 36.0 - 47.0 % 04/29/2020 9:42 AM CDT [facility] MCV 95.5 78.0 - 100.0 FL 04/29/2020 9:42 AM CDT [facility] MCH 29.8 27.0 - 31.0 PG 04/29/2020 9:42 AM CDT [facility] MCHC 31.2(L) 33.0 - 36.0 G/DL 04/29/2020 9:42 AM CDT [facility] RDW 27.0(H) 11.5 - 14.5 % 04/29/2020 9:42 AM CDT [facility] PLT 53(L) 150 - 350 x10'3/uL 04/29/2020 9:42 AM CDT [facility] MPV RESULTS NOT AVAILABLE 7.4 - 10.4 FL 04/29/2020 9:42 AM CDT [facility] DIFFERENTIAL COMMENT NORMAL REFERENCE RANGE NOT ESTABLISHED FOR THE PROPORTIONAL LEUKOCYTE DIFFERENTIAL. 04/29/2020 9:42 AM CDT [facility] SEG NEUTROPHILS 71.5 % 0 9:54 AM CDT [facility] LYMPHOCYTES 17.2 % 04/29/2020 9:54 AM CDT [facility] MONOCYTES 5.9 % 04/29/2020 9:54 AM CDT [facility] EOSINOPHILS 1.9 % 04/29/2020 9:54 AM CDT [facility] BASOPHILS 0.4 % 04/29/2020 9:54 AM CDT [facility] IMMATURE GRANS % 3.1 % 04/29/20 20 9:54 AM CDT [facility] NRBC 0.3 % 04/29/2020 9:54 AM CDT [facility] ABS. NEUTROPHILS 7.51 1.60 - 8.30 x10'3/uL 04/29/2020 9:54 AM CDT [facility] ABS. LYMPHOCYTES 1.81 0.80 - 4.70 x10'3/uL 04/29/2020 9:54 AM CDT [facility] ABS. MONOCYTES 0.62 0.00 - 1.50 x10'3/uL 04/29/2020 9:54 AM CDT [facility] ABS. EOSINOPHILS 0.20 0.00 - 0.40 x10'3/uL 04/29/2020 9:54 AM CDT [facility] ABS. BASOPHILS 0.04 0.00 - 0.20 x10'3/uL 04/29/2020 9:54 AM CDT [facility] ABS. IMMATURE GRANULOCYTES 0.33(H) 0.00 - 0.03 x10'3/uL 04/29/2020 9:54 AM CDT [facility] ABS. NUCLEATED RBC'S 0.03(H) 0.00 x10'3/uL 04/29/2020 9:54 AM CDT [facility] PLT MORPH. DECREASED 04/29/2020 9:54 AM CDT [facility] RBC MORPHOLOGY 1+ 04/29/2020 9:54 AM CDT [facility] Comment:ANISOCYTOSIS 04/29/2020 9:22 AM CDT Roberta Alex MD LABORATORY Final Result [facility] [address] [place] [address], documented in this encounter Visit Diagnoses Diagnosis Anemia Anemia, unspecified Thrombocytopenia affecting (CMS/HCC HHS/HCC) Iron deficiency anemia secondary to inadequate dietary iron intake documented in this encounter Care Teams Linseed Cake Trimmer Relationship Specialty Start Date End Date Alejandro Blevins MD PCP - General FAMILY PRACTICE 12/10/19 documented as of this encounter
--- OUTSIDE RECORDS SUMMARY | 2024-07-11 10:02 | XMS_ITS | Encounter Summary ---
Author Organization [facility] Address [address] [place] [address]. [place], [place] [id number] [place] [address] Care Team Providers Care Bingo Manager Name Role Phone Alejandro Blevins MD Primary Care Provider [phone] Encounter Details Date Type Department Care Team (Latest Contact Info) Description 03/04/2020 Travel Social History Tobacco Use Types Packs/Day Years Used Date Smoking Tobacco: Every Day Smokeless Tobacco: Never Comments Yes Sex and Gender Information Value Date Recorded Sex Assigned at Not on file Legal Sex Female 11:30 PM VICE PRESIDENT OF DEVELOPMENT Gender Identity Female 11/10/2021 3:09 PM [...] st Contact Info) Description 09/25/2024 11:30 AM VICE PRESIDENT OF DEVELOPMENT Appointment [facility] [address] [place] [address] Roberta Alex MD [address] [place] [address] 09/25/2024 11:40 AM VICE PRESIDENT OF DEVELOPMENT Office Visit [facility] [address] [place] [address] Roberta Alex MD [address] [place] [address] documented as of this encounter Visit Diagnoses Not on filedocumented in this encounter Care Teams Bingo Manager Relationship Specialty Start Date End Date Alejandro Blevins MD PCP - General FAMILY PRACTICE 12/10/19 documented as of this encounter
--- OUTSIDE RECORDS SUMMARY | 2024-07-11 10:02 | XMS_ITS | Encounter Summary ---
Author Organization [facility] Address [address] [place] [address]. [place] [address] [place] [address] Care Team Providers Care Failure Analysis Engineer Name Role Phone Alejandro Blevins MD Primary Care Provider Reason for Visit * Reason Comments Follow Up Lab Results Encounter Details Date Type Department Care Team (Late st Contact Info) Description 03/25/2020 11:20 AM CDT Office Visit [address] [place] [address] Roberta Alex MD [address] [place] [address] Follow Up; Lab Results Social History Tobacco Use Types Packs/Day Years Used Date Smoking Tobacco: Every Day Smokeless Tobacco: Never Comments Yes Sex and Gender Information Value Date Recorded Sex Assigned at Not on file Legal Sex Female 11:30 PM SALES RELATIONSHIP MANAGER Gender Identity Female 11/10/2021 3:09 PM [...] to admission. She now follows closely with cereal maker-radar repairer Dr Machelle Costello at [facility] in [place]. Plan for IOL in mid April. Patient has history of chronic thrombocytopenia and iron deficiency and followed with [facility] travel guide Dr. Dick Bonilla 5 years ago. Today she is here for follow-up. She is currently in her 3rd trimester. Continues to feel fatigued.No bleeding. Noticed right wrist pain since yesterday, attributes to bad sleeping posture, used a brace which made it worse. She is yet to follow-up with her [employer] SUPERINTENDENT next week. Missed her appointment last week. [...] file Gets together: Not on file Attends uatsdin service: Not on file Active member of [...] Outpatient Medications Medication Sig Dispense Refill ??? jhlcyjp-vhcuqbkaajaer-jvaddrhf 250-250-65 MG tablet Take 1 tablet by [...] was strongly advised to follow-up with her loom repairer/GYN and also close monitoring on blood counts. [...] Contact Info) Description 09/25/2024 11:30 AM SALES RELATIONSHIP MANAGER Appointment [facility] [place] [address] Roberta Alex MD [address] [place] [address] 09/25/2024 11:40 AM SALES RELATIONSHIP MANAGER Office Visit [facility] [address] [place] [address] Roberta Alex MD [address] [place] [phone] documented as of this encounter Results * FERRITIN (04/16/2020 10:17 AM CDT) Pathologist [facility] FERRITIN 13.0 8 - 252 NG/ML 04/16/2020 10:52 AM CDT [facility] 04/16/2020 10:1 7 AM CDT Roberta Alex MD LABORATORY Final Result [facility] [address] [place] [address], * (ABNORMAL) CBC W/DIFF AUTOMATED (04/16/2020 10:17 AM CDT) [facility] WBC 8.9 4.5 - 10.8 x10'3/uL 04/16/2020 10:34 AM CDT [facility] RBC 4.29 4.10 - 5.40 x10'6/uL 04/16/2020 10:34 AM CDT [facility] HGB 11.2(L) 12.0 - 16.0 G/DL 04/16/2020 10:34 AM CDT [facility] HCT 35.8(L) 36.0 - 47.0 % 04/16/2020 10:34 AM CDT [facility] MCV 83.4 78.0 - 100.0 FL 04/16/2020 10:34 AM CDT [facility] MCH 26.1(L) 27.0 - 31.0 PG 04/16/2020 10:34 AM CDT [facility] MCHC 31.3(L) 33.0 - 36.0 G/DL 04/16/2020 10:34 AM CDT [facility] RDW 19.5(H) 11.5 - 14.5 % 04/16/2020 10:34 AM CDT [facility] PLT 33(L) 150 - 350 x10'3/uL 04/16/2020 10:34 AM CDT [facility] MPV RESULTS NOT AVAILABLE 7.4 - 10.4 FL 04/16/2020 10:34 AM CDT [facility] DIFFERENTIAL COMMENT NORMAL REFERENCE RANGE NOT ESTABLISHED FOR THE PROPORTIONAL LEUKOCYTE DIFFERENTIAL. 04/16/2020 10:34 AM CDT [facility] SEG NEUTROPHILS 70.6 % 0 10:55 AM CDT [facility] LYMPHOCYTES 19.3 % 04/16/2020 10:55 AM CDT [facility] MONOCYTES 6.8 % 04/16/2020 10:55 AM CDT [facility] EOSINOPHILS 1.6 % 04/16/2020 10:55 AM CDT [facility] BASOPHILS 0.4 % 04/16/2020 10:55 AM CDT [facility] IMMATURE GRANS % 1.3 % 04/16/20 20 10:55 AM CDT [facility] NRBC 0.2 % 04/16/2020 10:55 AM CDT [facility] ABS. NEUTROPHILS 6.28 1.60 - 8.30 x10'3/uL 04/16/2020 10:55 AM CDT [facility] ABS. LYMPHOCYTES 1.72 0.80 - 4.70 x10'3/uL 04/16/2020 10:55 AM CDT [facility] ABS. MONOCYTES 0.61 0.00 - 1.50 x10'3/uL 04/16/2020 10:55 AM CDT [facility] ABS. EOSINOPHILS 0.14 0.00 - 0.40 x10'3/uL 04/16/2020 10:55 AM CDT [facility] ABS. BASOPHILS 0.04 0.00 - 0.20 x10'3/uL 04/16/2020 10:55 AM CDT [facility] ABS. IMMATURE GRANULOCYTES 0.12(H) 0.00 - 0.03 x10'3/uL 04/16/2020 10:55 AM CDT [facility] ABS. NUCLEATED RBC'S 0.02(H) 0.00 x10'3/uL 04/16/2020 10:55 AM CDT [facility] PLT MORPH. DECREASED 04/16/2020 10:55 AM CDT [facility] RBC MORPHOLOGY 1+ 04/16/2020 10:55 AM CDT [facility] Comment:HYPOCHROMASIA 04/16/2020 10:1 7 AM CDT Roberta Alex MD LABORATORY Final Result [facility] [address] [place] [address], documented in this encounter Visit Diagnoses Diagnosis Iron deficiency anemia secondary to inadequate dietary iron intake- Primary Thrombocytopenia affecting (CMS/HCC HHS/HCC) Other dietary vitamin B12 deficiency anemia Dichorionic diamniotic twin in third trimester (HHS/HCC) Twin , antepartum documented in this encounter Care Teams Failure Analysis Engineer Relationship Specialty Start Date End Date Alejandro Blevins MD PCP - General FAMILY PRACTICE 12/10/19 documented as of this encounter
--- OUTSIDE RECORDS SUMMARY | 2024-07-11 10:02 | XMS_ITS | Encounter Summary ---
Author Organization [facility] Address [address] [place] [address]. [place], [place] [address] [place] [address] Care Team Providers Care Machine Operator Transplanter Name Role Phone Alejandro Blevins MD Primary Care Provider [phone] Encounter Details Date Type Department Care Team (Latest Contact Info) Description 02/15/2020 Travel Social History Tobacco Use Types Packs/Day Years Used Date Smoking Tobacco: Every Day Smokeless Tobacco: Never Comments Yes Sex and Gender Information Value Date Recorded Sex Assigned at Not on file Legal Sex Female 11:30 PM JUNIOR WEB DESIGNER Gender Identity Female 11/10/2021 3:09 PM [...] st Contact Info) Description 09/25/2024 11:30 AM JUNIOR WEB DESIGNER Appointment [facility] [address] [place] [address] Roberta Alex MD [address] [place] [address] 09/25/2024 11:40 AM JUNIOR WEB DESIGNER Office Visit [facility] [address] [place] [address] Roberta Alex MD [address] [place] [address] documented as of this encounter Visit Diagnoses Not on filedocumented in this encounter Care Teams Machine Operator Transplanter Relationship Specialty Start Date End Date Alejandro Blevins MD PCP - General FAMILY PRACTICE 12/10/19 documented as of this encounter
--- OUTSIDE RECORDS SUMMARY | 2024-07-11 10:02 | XMS_ITS | Encounter Summary ---
Author Organization [facility] Address [address] [place] [address]. [place] [address] [place] [address] Care Team Providers Care Bowling Ball Grader Name Role Phone Alejandro Blevins MD Primary Care Provider [phone] Encounter Details Date Type Department Care Team (Latest Contact Info) Description 05/13/2020 10:20 AM CDT - 05/13/2020 11:59 PM CDT Hospital Encounter [address] [place] [address] Roberta Alex MD [address] [place], [place] [address] Discharge Disposition: Home or Self Care (Routine Discharge) Social History Tobacco Use Types Packs/Day Years Used Date Smoking Tobacco: Every Day Smokeless Tobacco: Never Comments Yes Sex and Gender Information Value Date Recorded Sex Assigned at Not on file Legal Sex Female 11:30 PM DISCHARGE COORDINATOR Gender Identity Female 11/10/2021 3:09 PM [...] st Contact Info) Description 09/25/2024 11:30 AM DISCHARGE COORDINATOR Appointment [facility] [place] [address] Roberta Alex MD [address] [place] [phone] 09/25/2024 11:40 AM DISCHARGE COORDINATOR Office Visit [facility] [place] [address] Roberta Alex MD [address] [place] [phone] documented as of this encounter Procedures Procedure Name Priority Date/Time Associated Diagnosis Comments CBC W/DIFF AUTOMATED Routine 05/13/2020 11:30 AM CDT Iron deficiency anemia due to chronic blood loss Chronic ITP (idiopathic thrombocytopenia) ([facility]) Iron deficiency anemia secondary to inadequate dietary iron intake documented in this encounter Results * (ABNORMAL) CBC W/DIFF AUTOMATED (05/13/2020 11:30 AM CDT) WBC 9.4 4.5 - 10.8 x10'3/uL 05/13/2020 12:05 PM CDT [facility] RBC 4.24 4.10 - 5.40 x10'6/uL 05/13/2020 12:05 PM CDT [facility] HGB 12.2 12.0 - 16.0 G/DL 05/13/2020 12:05 PM CDT [facility] HCT 39.3 36.0 - 47.0 % 05/13/2020 12:05 PM CDT [facility] MCV 92.7 78.0 - 100.0 FL 05/13/2020 12:05 PM CDT [facility] MCH 28.8 27.0 - 31.0 PG 05/13/2020 12:05 PM CDT [facility] MCHC 31.0(L) 33.0 - 36.0 G/DL 05/13/2020 12:05 PM CDT [facility] RDW 21.2(H) 11.5 - 14.5 % 05/13/2020 12:05 PM CDT [facility] PLT 62(L) 150 - 350 x10'3/uL 05/13/2020 12:05 PM CDT [facility] MPV RESULTS NOT AVAILABLE 7.4 - 10.4 FL 05/13/2020 12:05 PM CDT [facility] DIFFERENTIAL COMMENT NORMAL REFERENCE RANGE NOT ESTABLISHED FOR THE PROPORTIONAL LEUKOCYTE DIFFERENTIAL. 05/13/2020 12:05 PM CDT [facility] SEG NEUTROPHILS 69.5 % 0 12:06 PM CDT [facility] LYMPHOCYTES 22.2 % 05/13/2020 12:06 PM CDT [facility] MONOCYTES 4.3 % 05/13/2020 12:06 PM CDT [facility] EOSINOPHILS 3.1 % 05/13/2020 12:06 PM CDT [facility] BASOPHILS 0.5 % 05/13/2020 12:06 PM CDT [facility] IMMATURE GRANS % 0.4 % 05/13/20 20 12:06 PM CDT [facility] NRBC 0.0 % 05/13/2020 12:06 PM CDT [facility] ABS. NEUTROPHILS 6.53 1.60 - 8.30 x10'3/uL 05/13/2020 12:06 PM CDT [facility] ABS. LYMPHOCYTES 2.09 0.80 - 4.70 x10'3/uL 05/13/2020 12:06 PM CDT [facility] ABS. MONOCYTES 0.40 0.00 - 1.50 x10'3/uL 05/13/2020 12:06 PM CDT [facility] ABS. EOSINOPHILS 0.29 0.00 - 0.40 x10'3/uL 05/13/2020 12:06 PM CDT [facility] ABS. BASOPHILS 0.05 0.00 - 0.20 x10'3/uL 05/13/2020 12:06 PM CDT [facility] ABS. IMMATURE GRANULOCYTES 0.04(H) 0.00 - 0.03 x10'3/uL 05/13/2020 12:06 PM CDT [facility] ABS. NUCLEATED RBC'S 0.00 0.00 x10'3/uL 05/13/2020 12:06 PM CDT [facility] PLT MORPH. DECREASED 05/13/2020 12:06 PM CDT [facility] RBC MORPHOLOGY 1+ 05/13/2020 12:06 PM CDT [facility] Comment:POIKILOCYTOSIS 05/13/2020 11:3 0 AM CDT Roberta Alex MD LABORATORY Final Result [facility] [address] [place] [address], documented in this encounter Visit Diagnoses Diagnosis Iron deficiency anemia due to chronic blood loss Iron deficiency anemia secondary to blood loss (chronic) Chronic ITP (idiopathic thrombocytopenia) (CMS/HCC HHS/HCC) Immune thrombocytopenic purpura Iron deficiency anemia secondary to inadequate dietary iron intake documented in this encounter Care Teams Bowling Ball Grader Relationship Specialty Start Date End Date Alejandro Blevins MD PCP - General FAMILY PRACTICE 12/10/19 documented as of this encounter
--- OUTSIDE RECORDS SUMMARY | 2024-07-11 10:02 | XMS_ITS | Encounter Summary ---
Author Organization [facility] Address [address] [place] [address]. [place] [address] [place] [address] Care Team Providers Care Grape Cutter Name Role Phone Alejandro Blevins MD Primary Care Provider [phone] Encounter Details Date Type Department Care Team (Latest Contact Info) Description 07/08/2020 11:20 AM MILITARY ADMINISTRATIVE TECHNICIAN - 07/08/2020 11:59 PM MILITARY ADMINISTRATIVE TECHNICIAN Hospital Encounter [address] [place] [address] Roberta Alex MD [address] [place], [place] [id number] Discharge Disposition: Home or Self Care (Routine Discharge) Social History Tobacco Use Types Packs/Day Years Used Date Smoking Tobacco: Every Day Smokeless Tobacco: Never Comments Yes Sex and Gender Information Value Date Recorded Sex Assigned at Not on file Legal Sex Female 11:30 PM MILITARY ADMINISTRATIVE TECHNICIAN Gender Identity Female 11/10/2021 3:09 PM CDT Sexual Orientation Straight 11/10/2021 3: 09 PM CDT COVID-19 Exposure Response Date Recorded In the last month, have you been in contact with someone who was confirmed or suspected to have Coronavirus / COVID-19? No / Unsure 07/08/2020 11:36 AM MILITARY ADMINISTRATIVE TECHNICIAN documented as of this encounter Medications at Time of Discharge aspirin-acetamino phen-caffeine 250-250-65 MG tablet Take 1 tablet by mouth every 6 (six) hours as needed for Pain. 07/29/2020 calcium carbonate 500 MG chewable tablet Chew 1 tablet by mouth every 2 (two) hours as needed. 01/23/2020 07/29/2020 dexamethasone 20 MG TabIndications:Ac jessica ITP ([facility] HHS/HCC) Take 40 mg by mouth daily for 4 days. 8 tablet 07/08/2020 07/12/2020 ferrous sulfate, 65 mg elemental, 325 (65 FE) MG tablet Take 325 mg by mouth daily. 12/09/2019 07/29/2020 folic acid 1 MG tabletIndications :Iron deficiency anemia secondary to inadequate dietary iron intake,Acute ITP ([facility] HHS/HCC) Take 1 tablet (1 mg total) [...] st Contact Info) Description 09/25/2024 11:30 AM MILITARY ADMINISTRATIVE TECHNICIAN Appointment [facility] [address] [place] [address] Roberta Alex MD [address] [place] [address] 09/25/2024 11:40 AM MILITARY ADMINISTRATIVE TECHNICIAN Office Visit [facility] [place] [address] [address] Roberta Alex MD [address] [place] [address] documented as of this encounter Procedures Procedure Name Priority Date/Time Associated Diagnosis Comments CARDIOLIPIN ANTIBODIES (IGG,IGA,IGM) Routine 07/08/2020 11:55 AM MILITARY ADMINISTRATIVE TECHNICIAN Anemia Iron deficiency anemia secondary to inadequate dietary iron intake Chronic ITP (idiopathic thrombocytopenia) ([facility] HHS/HCC) VITAMIN B-12 Routine 07/08/2020 11:55 AM MILITARY ADMINISTRATIVE TECHNICIAN Anemia Iron deficiency anemia secondary to inadequate dietary iron intake Chronic ITP (idiopathic thrombocytopenia) (CMS/HCC HHS/HCC) CBC W/DIFF AUTOMATED Routine 07/08/2020 11:55 AM MILITARY ADMINISTRATIVE TECHNICIAN Chronic ITP (idiopathic thrombocytopenia) (CMS/HCC HHS/HCC) Anemia FERRITIN Routine 07/08/2020 11:55 AM MILITARY ADMINISTRATIVE TECHNICIAN Anemia Iron deficiency anemia secondary to inadequate dietary iron intake Chronic ITP (idiopathic thrombocytopenia) (CMS/HCC HHS/HCC) documented in this encounter Results * (ABNORMAL) CARDIOLIPIN ANTIBODIES (IGG,IGA,IGM) (07/08/2020 11:55 AM MILITARY ADMINISTRATIVE TECHNICIAN) Pathologist [facility] CARDIOLIPIN AB IGG <14 <=14 GPL 2019 2:29 AM [facility] [employer] JUSTIN PEACE Comment: Cardiolipin Ab (IgG) Reference Range: Value ? Interpretation ? < or = 14 ? Negative 15 - 20 ? Indeterminate 21 - 80 ? Low to Medium Positive > 80 ?High Positive CARDIOLIPIN AB IGM 41(H) <=12 MPL 2019 2:29 AM MILITARY ADMINISTRATIVE TECHNICIAN [employer] JUSTIN PEACE Comment: >40 MPL is a [...] drug therapy or aging. Test Performed by [employer], [employer] [facility], [address] [place], [place] Hank Landin M.D., Ph.D., Director of Laboratories , [place] [id number] CARDIOLIPIN AB IGA <11 <=11 APL 2019 2:29 AM MILITARY ADMINISTRATIVE TECHNICIAN [employer] PILLAISCARLETT PEACE Comment: Cardiolipin Ab (IgA) Reference Range: Value ? Interpretation ? < or = 11 ? Negative 12 - 20 ? Indeterminate 21 - 80 ? Low to Medium Positive > 80 ?High Positive 07/08/2020 11:5 5 AM MILITARY ADMINISTRATIVE TECHNICIAN Roberta Alex MD LABORATORY Final Result Performing Organization Address [facility]/ZIP Co de Phone Number [employer] [phone] [place], [place] , * VITAMIN B-12 (07/08/2020 11:55 AM MILITARY ADMINISTRATIVE TECHNICIAN) Pathologist [facility] VITAMIN B12 S/P/B 919 193 - 986 PG/ML 07/09/2020 6:17 PM MILITARY ADMINISTRATIVE TECHNICIAN [facility] 07/08/2020 11:5 5 AM MILITARY ADMINISTRATIVE TECHNICIAN Roberta Alex MD LABORATORY Final Result [facility] [address] [place] [address], [place] [phone] [id number] * FERRITIN (07/08/2020 11:55 AM MILITARY ADMINISTRATIVE TECHNICIAN) FERRITIN 21.1 8 - 252 NG/ML 07/08/2020 12:35 PM MILITARY ADMINISTRATIVE TECHNICIAN [facility] 07/08/2020 11:5 5 AM MILITARY ADMINISTRATIVE TECHNICIAN Roberta Alex MD LABORATORY Final Result [facility] [address] [place] [address], [place] [phone] * (ABNORMAL) CBC W/DIFF AUTOMATED (07/08/2020 11:55 AM MILITARY ADMINISTRATIVE TECHNICIAN) WBC 8.7 4.5 - 10.8 x10'3/uL 07/08/2020 12:04 PM [facility] RBC 4.24 4.10 - 5.40 x10'6/uL 07/08/2020 12:04 PM [facility] HGB 12.1 12.0 - 16.0 G/DL 07/08/2020 12:04 PM [facility] HCT 39.4 36.0 - 47.0 % 07/08/2020 12:04 PM [facility] MCV 92.9 78.0 - 100.0 FL 07/08/2020 12:04 PM [facility] MCH 28.5 27.0 - 31.0 PG 07/08/2020 12:04 PM [facility] MCHC 30.7(L) 33.0 - 36.0 G/DL 07/08/2020 12:04 PM [facility] RDW 15.5(H) 11.5 - 14.5 % 07/08/2020 12:04 PM [facility] PLT 26(LL) 150 - 350 x10'3/uL 07/08/2020 12:04 PM [facility] Comment: CRITICAL VALUE CALLED TO MARIUM AT 1204 READ BACK AND VERIFIED RESULT CHECKED MPV RESULTS NOT AVAILABLE 7.4 - 10.4 FL 07/08/2020 12:04 PM [facility] DIFFERENTIAL COMMENT NORMAL REFERENCE RANGE NOT ESTABLISHED FOR THE PROPORTIONAL LEUKOCYTE DIFFERENTIAL. 07/08/2020 12:04 PM [facility] SEG NEUTROPHILS 67.7 % 0 12:17 PM [facility] LYMPHOCYTES 21.5 % 07/08/2020 12:17 PM [facility] MONOCYTES 4.0 % 07/08/2020 12:17 PM [facility] EOSINOPHILS 5.8 % 07/08/2020 12:17 PM [facility] BASOPHILS 0.8 % 07/08/2020 12:17 PM [facility] IMMATURE GRANS % 0.2 % 07/08/20 20 12:17 PM [facility] NRBC 0.0 % 07/08/2020 12:17 PM [facility] ABS. NEUTROPHILS 5.89 1.60 - 8.30 x10'3/uL 07/08/2020 12:17 PM [facility] ABS. LYMPHOCYTES 1.87 0.80 - 4.70 x10'3/uL 07/08/2020 12:17 PM [facility] ABS. MONOCYTES 0.35 0.00 - 1.50 x10'3/uL 07/08/2020 12:17 PM [facility] ABS. EOSINOPHILS 0.50(H) 0.00 - 0.40 x10'3/uL 07/08/2020 12:17 PM [facility] ABS. BASOPHILS 0.07 0.00 - 0.20 x10'3/uL 07/08/2020 12:17 PM [facility] ABS. IMMATURE GRANULOCYTES 0.02 0.00 - 0.03 x10'3/uL 07/08/2020 12:17 PM [facility] ABS. NUCLEATED RBC'S 0.00 0.00 x10'3/uL 07/08/2020 12:17 PM [facility] PLT MORPH. DECREASED 07/08/2020 12:17 PM MILITARY ADMINISTRATIVE TECHNICIAN [facility] RBC MORPHOLOGY NORMAL 07/08/2020 12:17 PM MILITARY ADMINISTRATIVE TECHNICIAN [facility] 07/08/2020 11:5 5 AM MILITARY ADMINISTRATIVE TECHNICIAN Roberta Alex MD LABORATORY Final Result [facility] [address] [place] [address], documented in this encounter Visit Diagnoses Diagnosis Chronic ITP (idiopathic thrombocytopenia) ([facility]/HCC [facility]/HCC) Immune thrombocytopenic purpura Anemia Anemia, unspecified Iron deficiency anemia secondary to inadequate dietary iron intake documented in this encounter Care Teams Grape Cutter Relationship Specialty Start Date End Date Alejandro Belvins MD PCP - General FAMILY PRACTICE 12/10/19 documented as of this encounter
--- OUTSIDE RECORDS SUMMARY | 2024-07-11 10:02 | XMS_ITS | Encounter Summary ---
Author Organization [facility] Address [address] [place] [address]. [place], [place] [address] [place] [address] Care Team Providers Care Camera Repair Technician Name Role Phone Alejandro Blevins MD Primary Care Provider [phone] Encounter Details Date Type Department Care Team (Latest Contact Info) Description 03/14/2020 Travel Social History Tobacco Use Types Packs/Day Years Used Date Smoking Tobacco: Every Day Smokeless Tobacco: Never Comments Yes Sex and Gender Information Value Date Recorded Sex Assigned at Not on file Legal Sex Female 11:30 PM CONTAINER WASHER Gender Identity Female 11/10/2021 3:09 PM CDT [...] st Contact Info) Description 09/25/2024 11:30 AM CONTAINER WASHER Appointment [facility] [address] [place] [address] Roberta Alex MD [address] [place] [address] 09/25/2024 11:40 AM CONTAINER WASHER Office Visit [facility] [address] [place] [address] Roberta Alex MD [address] [place] [address] documented as of this encounter Visit Diagnoses Not on filedocumented in this encounter Care Teams Camera Repair Technician Relationship Specialty Start Date End Date Alejandro Blevins MD PCP - General FAMILY PRACTICE 12/10/19 documented as of this encounter
--- OUTSIDE RECORDS SUMMARY | 2024-07-11 10:02 | XMS_ITS | Encounter Summary ---
Author Organization [facility] Address [address] [place] [address]. [place] [address] [place] [address] Care Team Providers Care Video Tape Editor Name Role Phone Alejandro Blevins MD Primary Care Provider [phone] Reason for Visit * Reason Comments Infusion Therapy * Treatment/Therapy Plan Authorization (Routine) - Closed Specialty Diagnoses / Procedures Referred By Contac t Referred To Contact Diagnoses Iron deficiency anemia secondary to inadequate dietary iron intake Procedures IRON SUCROSE INJ, 20 MG Roberta Alex MD [address] [place] [address] Phone: tel: fax: [facility] [place] [address] Phone: tel: Referral ID Status Reason Start Date Expiration Date Visits Re quested Visits Authorized [id number] Closed 12/19/2019 04/23/2020 1 3 Encounter Details Date Type Department Care Team (Latest Contact Info) Description 03/04/2020 10:44 AM CDT - 03/04/2020 11:59 PM CDT Hospital Encounter [facility] [place] [address] Roberta Alex MD [address] [place] [id number] Infusion Therapy Discharge Disposition: Home or Self Care (Routine Discharge) Social History Tobacco Use Types Packs/Day Years Used Date Smoking Tobacco: Every Day Smokeless Tobacco: Never Comments Yes Sex and Gender Information Value Date Recorded Sex Assigned at Not on file Legal Sex Female 11:30 PM BRAZING MACHINE OPERATOR AUTOMATIC Gender Identity Female 11/10/2021 [...] center with any post infusion concerns at [phone]. Return as scheduled for iron infusion and [...] st Contact Info) Description 09/25/2024 11:30 AM BRAZING MACHINE OPERATOR AUTOMATIC Appointment [facility] [address] [place] [address] Roberta Alex MD [address] [place] [address] 09/25/2024 11:40 AM BRAZING MACHINE OPERATOR AUTOMATIC Office Visit [facility] [address] [place] [address] Roberta Alex MD [address] [place] [address] documented as of this encounter Visit Diagnoses [...] mL/hr documented in this encounter Care Teams Video Tape Editor Relationship Specialty Start Date End Date Alejandro Blevins MD PCP - General FAMILY PRACTICE 12/10/19 documented as of this encounter
--- OUTSIDE RECORDS SUMMARY | 2024-07-11 10:02 | XMS_ITS | Encounter Summary ---
Author Organization [facility] Address [facility] [facility] [place] [address] [place] [address] Care Team Providers Care Jewish Thought Professor Name Role Phone Alejandro Belvins MD Primary Care Provider [phone] Encounter Details Date Type Department Care Team (Latest Contact Info) Description 03/04/2020 10:30 AM CDT - 03/04/2020 10:43 AM CDT Hospital Encounter [address] [place] [address] Roberta Alex MD [address] [place], [place] [address] Discharge Disposition: Home or Self Care (Routine Discharge) Social History Tobacco Use Types Packs/Day Years Used Date Smoking Tobacco: Every Day Smokeless Tobacco: Never Comments Yes Sex and Gender Information Value Date Recorded Sex Assigned at Not on file Legal Sex Female 11:30 PM AUTOMATION MACHINE BUILDER Gender Identity Female 11/10/2021 3:09 PM CDT [...] Contact Info) Description 09/25/2024 11:30 AM AUTOMATION MACHINE BUILDER Appointment [facility] [place] [address] Roberta Alex MD [address] [place] [address] 09/25/2024 11:40 AM AUTOMATION MACHINE BUILDER Office Visit [facility] [place] [address] Roberta Alex MD [address] [place] [phone] documented as of this encounter Procedures Procedure Name Priority Date/Time Associated Diagnosis Comments IRON SAT PANEL (IRON,IBC,%SAT) Routine 03/04/2020 10:54 AM CDT Thrombocytopenia affecting ([facility] HHS/HCC) Iron deficiency anemia secondary to inadequate dietary iron intake CBC W/DIFF AUTOMATED Routine 03/04/2020 10:54 AM CDT Thrombocytopenia affecting (CMS/HCC HHS/HCC) Iron deficiency anemia secondary to inadequate dietary iron intake FERRITIN Routine 03/04/2020 10:54 AM CDT Thrombocytopenia affecting ([facility]/HCC HHS/HCC) Iron deficiency anemia secondary to inadequate dietary iron intake documented in this encounter Results * FERRITIN (03/04/2020 10:54 AM CDT) FERRITIN 25.3 8 - 252 NG/ML 03/04/2020 11:37 AM CDT [facility] 03/04/2020 10:5 4 AM CDT us Roberta Alex MD LABORATORY Final Result Performing Organization Address [facility]/ZIP Co de Phone Number [facility] [address] [place] [place] [address], * (ABNORMAL) IRON SAT PANEL (IRON,IBC,%SAT) (03/04/2020 10:54 AM CDT) IRON 31(L) 50 - 170 MCG/DL 03/04/2020 11:27 AM CDT [facility] IRON BINDING CAPACITY 721(H) 250 - 450 MCG/DL 03/04/2020 11:27 AM CDT [facility] IRON SATURATION 4 % 0 11:27 AM CDT [facility] Comment:REFERENCE RANGE NOT ESTABLISHED 03/04/2020 10:5 4 AM CDT us Roberta Alex MD LABORATORY Final Result Performing Organization Address [facility] Co de Phone Number [facility] [address] [place] [place] [address], * (ABNORMAL) CBC W/DIFF AUTOMATED (03/04/2020 10:54 AM CDT) WBC 9.7 4.5 - 10.8 x10'3/uL 03/04/2020 11:04 AM CDT [facility] RBC 4.11 4.10 - 5.40 x10'6/uL 03/04/2020 11:04 AM CDT [facility] HGB 10.8(L) 12.0 - 16.0 G/DL 03/04/2020 11:04 AM CDT [facility] HCT 34.8(L) 36.0 - 47.0 % 03/04/2020 11:04 AM CDT [facility] MCV 84.7 78.0 - 100.0 FL 03/04/2020 11:04 AM CDT [facility] MCH 26.3(L) 27.0 - 31.0 PG 03/04/2020 11:04 AM CDT [facility] MCHC 31.0(L) 33.0 - 36.0 G/DL 03/04/2020 11:04 AM CDT [facility] RDW 21.1(H) 11.5 - 14.5 % 03/04/2020 11:04 AM CDT [facility] PLT 42(L) 150 - 350 x10'3/uL 03/04/2020 11:04 AM CDT [facility] MPV RESULTS NOT AVAILABLE 7.4 - 10.4 FL 03/04/2020 11:04 AM CDT [facility] DIFFERENTIAL COMMENT NORMAL REFERENCE RANGE NOT ESTABLISHED FOR THE PROPORTIONAL LEUKOCYTE DIFFERENTIAL. 03/04/2020 11:04 AM CDT [facility] SEG NEUTROPHILS 76.6 % 0 11:31 AM CDT [facility] LYMPHOCYTES 16.6 % 03/04/2020 11:31 AM CDT [facility] MONOCYTES 4.8 % 03/04/2020 11:31 AM CDT [facility] EOSINOPHILS 0.7 % 03/04/2020 11:31 AM CDT [facility] BASOPHILS 0.4 % 03/04/2020 11:31 AM CDT [facility] IMMATURE GRANS % 0.9 % 03/04/20 20 11:31 AM CDT [facility] NRBC 0.0 % 03/04/2020 11:31 AM CDT [facility] ABS. NEUTROPHILS 7.42 1.60 - 8.30 x10'3/uL 03/04/2020 11:31 AM CDT [facility] ABS. LYMPHOCYTES 1.61 0.80 - 4.70 x10'3/uL 03/04/2020 11:31 AM CDT [facility] ABS. MONOCYTES 0.47 0.00 - 1.50 x10'3/uL 03/04/2020 11:31 AM CDT [facility] ABS. EOSINOPHILS 0.07 0.00 - 0.40 x10'3/uL 03/04/2020 11:31 AM CDT [facility] ABS. BASOPHILS 0.04 0.00 - 0.20 x10'3/uL 03/04/2020 11:31 AM CDT [facility] ABS. IMMATURE GRANULOCYTES 0.09(H) 0.00 - 0.03 x10'3/uL 03/04/2020 11:31 AM CDT [facility] ABS. NUCLEATED RBC'S 0.00 0.00 x10'3/uL 03/04/2020 11:31 AM CDT [facility] PLT MORPH. DECREASED 03/04/2020 11:31 AM CDT [facility] RBC MORPHOLOGY 1+ 03/04/2020 11:31 AM CDT [facility] Comment: HYPOCHROMASIA 1+ ANISOCYTOSIS 03/04/2020 10:5 4 AM CDT us Roberta Alex MD LABORATORY Final Result [facility] [address] [place] [address], documented in this encounter Visit Diagnoses Diagnosis Thrombocytopenia affecting (CMS/HCC HHS/HCC) Iron deficiency anemia secondary to inadequate dietary iron intake documented in this encounter Care Teams Jewish Thought Professor Relationship Specialty Start Date End Date Alejandro Blevins MD PCP - General FAMILY PRACTICE 12/10/19 documented as of this encounter
--- OUTSIDE RECORDS SUMMARY | 2024-07-11 10:02 | XMS_ITS | Encounter Summary ---
Author Organization [facility] Address [address] [place] [address]. [place] [address] [place] [address] Care Team Providers Care Hand Laster Name Role Phone Alejandro Blevins MD Primary Care Provider [phone] Reason for Visit * Reason Comments Follow Up Lab Results Encounter Details Date Type Department Care Team (Late st Contact Info) Description 04/29/2020 9:00 AM CDT Office Visit [address] [place] [address] Roberta Alex MD [address] [place] [address] Follow Up; Lab Results Social History Tobacco Use Types Packs/Day Years Used Date Smoking Tobacco: Every Day Smokeless Tobacco: Never Comments Yes Sex and Gender Information Value Date Recorded Sex Assigned at Not on file Legal Sex Female 11:30 PM BIOSOLIDS MANAGEMENT TECHNICIAN Gender Identity Female 11/10/2021 3:09 PM [...] and Lab Results History of Present Illness: Hillray Smalls is a 29-year-old female who is been following with us for severe iron deficiency, B12 deficiency noted in 11/2019 when she was diagnosed to be with twins at 20 weeks. Work-up for other causes of anemia were negative including hemolytic work-up, Hgb electrophoresis,MARQUITA. She had no care prior to admission. 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 Patient has history of chronic thrombocytopenia and iron deficiency and followed with [facility] laborer sawmill Dr. Dick Bonilla 5 years ago. Since [...] otherwise. She is yet to follow-up with [facility] this week for wound check ROS General: [...] file Gets together: Not on file Attends catholic service: Not on file Active member of [...] Outpatient Medications Medication Sig Dispense Refill ??? fjputpw-sdatukwiigjny-chpukfhg 250-250-65 MG tablet Take 1 tablet by [...] with good response, normalization of platelet counts. BAG INSPECTOR team requested to hold off dexamethasone due [...] st Contact Info) Description 09/25/2024 11:30 AM BIOSOLIDS MANAGEMENT TECHNICIAN Appointment [address] [place] [address] Roberta Alex MD [address] [place] [address] 09/25/2024 11:40 AM BIOSOLIDS MANAGEMENT TECHNICIAN Office Visit [facility] [address] [place] [address] [place] [address] Roberta Alex MD [address] [place] [address] documented as of this encounter Results * (ABNORMAL) CBC W/DIFF AUTOMATED (05/13/2020 11:30 AM CDT) WBC 9.4 4.5 - 10.8 x10'3/uL 05/13/2020 12:05 PM CDT [facility] RBC 4.24 4.10 - 5.40 x10'6/uL 05/13/2020 12:05 PM CDT [facility] HGB 12.2 12.0 - 16.0 G/DL 05/13/2020 12:05 PM CDT [facility] HCT 39.3 36.0 - 47.0 % 05/13/2020 12:05 PM CDT [facility] MCV 92.7 78.0 - 100.0 FL 05/13/2020 12:05 PM CDT [facility] MCH 28.8 27.0 - 31.0 PG 05/13/2020 12:05 PM CDT [facility] MCHC 31.0(L) 33.0 - 36.0 G/DL 05/13/2020 12:05 PM CDT [facility] RDW 21.2(H) 11.5 - 14.5 % 05/13/2020 12:05 PM CDT [facility] PLT 62(L) 150 - 350 x10'3/uL 05/13/2020 12:05 PM CDT [facility] MPV RESULTS NOT AVAILABLE 7.4 - 10.4 FL 05/13/2020 12:05 PM CDT [facility] DIFFERENTIAL COMMENT NORMAL REFERENCE RANGE NOT ESTABLISHED FOR THE PROPORTIONAL LEUKOCYTE DIFFERENTIAL. 05/13/2020 12:05 PM CDT [facility] SEG NEUTROPHILS 69.5 % 0 12:06 PM CDT [facility] LYMPHOCYTES 22.2 % 05/13/2020 12:06 PM CDT [facility] MONOCYTES 4.3 % 05/13/2020 12:06 PM CDT [facility] EOSINOPHILS 3.1 % 05/13/2020 12:06 PM CDT [facility] BASOPHILS 0.5 % 05/13/2020 12:06 PM CDT [facility] IMMATURE GRANS % 0.4 % 05/13/20 12:06 PM CDT [facility] NRBC 0.0 % 05/13/2020 12:06 PM CDT [facility] ABS. NEUTROPHILS 6.53 1.60 - 8.30 x10'3/uL 05/13/2020 12:06 PM CDT [facility] ABS. LYMPHOCYTES 2.09 0.80 - 4.70 x10'3/uL 05/13/2020 12:06 PM CDT [facility] ABS. MONOCYTES 0.40 0.00 - 1.50 x10'3/uL 05/13/2020 12:06 PM CDT [facility] ABS. EOSINOPHILS 0.29 0.00 - 0.40 x10'3/uL 05/13/2020 12:06 PM CDT [facility] ABS. BASOPHILS 0.05 0.00 - 0.20 x10'3/uL 05/13/2020 12:06 PM CDT [facility] ABS. IMMATURE GRANULOCYTES 0.04(H) 0.00 - 0.03 x10'3/uL 05/13/2020 12:06 PM CDT [facility] ABS. NUCLEATED RBC'S 0.00 0.00 x10'3/uL 05/13/2020 12:06 PM CDT [facility] PLT MORPH. DECREASED 05/13/2020 12:06 PM CDT [facility] RBC MORPHOLOGY 1+ 05/13/2020 12:06 PM CDT [facility] Comment:POIKILOCYTOSIS 05/13/2020 11:3 0 AM CDT us Roberta Alex MD LABORATORY Final Result Performing Organization Address City/[facility] Co de Phone Number [facility] [address] [place] [address], * (ABNORMAL) FERRITIN (04/29/2020 9:22 AM CDT) FERRITIN 498.4(H) 8 - 252 NG/ML 04/29/2020 10:20 AM CDT [facility] 04/29/2020 9:22 AM CDT us Roberta Alex MD LABORATORY Final Result Performing Organization Address [facility] Co de Phone Number [facility] [address] [place] [address], * IRON SATURATION PNL (FE/TIBC/SAT) (04/29/2020 9:22 AM CDT) IRON 72 50 - 170 MCG/DL 04/29/2020 9:59 AM CDT [facility] IRON BINDING CAPACITY 422 250 - 450 MCG/DL 04/29/2020 9:59 AM CDT [facility] IRON SATURATION 17 % 0 9:59 AM CDT [facility] Comment:REFERENCE RANGE NOT ESTABLISHED 04/29/2020 9:22 AM CDT us Roberta Alex MD LABORATORY Final Result Performing Organization Address [facility] Co de Phone Number [facility] [address] [place] [address], * (ABNORMAL) CBC W/DIFF AUTOMATED (04/29/2020 9:22 AM CDT) WBC 10.5 4.5 - 10.8 x10'3/uL 04/29/2020 9:42 AM CDT [facility] RBC 3.79(L) 4.10 - 5.40 x10'6/uL 04/29/2020 9:42 AM CDT [facility] HGB 11.3(L) 12.0 - 16.0 G/DL 04/29/2020 9:42 AM CDT [facility] HCT 36.2 36.0 - 47.0 % 04/29/2020 9:42 AM CDT [facility] MCV 95.5 78.0 - 100.0 FL 04/29/2020 9:42 AM CDT [facility] MCH 29.8 27.0 - 31.0 PG 04/29/2020 9:42 AM CDT [facility] MCHC 31.2(L) 33.0 - 36.0 G/DL 04/29/2020 9:42 AM CDT [facility] RDW 27.0(H) 11.5 - 14.5 % 04/29/2020 9:42 AM CDT [facility] PLT 53(L) 150 - 350 x10'3/uL 04/29/2020 9:42 AM CDT [facility] MPV RESULTS NOT AVAILABLE 7.4 - 10.4 FL 04/29/2020 9:42 AM CDT [facility] DIFFERENTIAL COMMENT NORMAL REFERENCE RANGE NOT ESTABLISHED FOR THE PROPORTIONAL LEUKOCYTE DIFFERENTIAL. 04/29/2020 9:42 AM CDT [facility] SEG NEUTROPHILS 71.5 % 0 9:54 AM CDT [facility] LYMPHOCYTES 17.2 % 04/29/2020 9:54 AM CDT [facility] MONOCYTES 5.9 % 04/29/2020 9:54 AM CDT [facility] EOSINOPHILS 1.9 % 04/29/2020 9:54 AM CDT [facility] BASOPHILS 0.4 % 04/29/2020 9:54 AM CDT [facility] IMMATURE GRANS % 3.1 % 04/29/20 20 9:54 AM CDT [facility] NRBC 0.3 % 04/29/2020 9:54 AM CDT [facility] ABS. NEUTROPHILS 7.51 1.60 - 8.30 x10'3/uL 04/29/2020 9:54 AM CDT [facility] ABS. LYMPHOCYTES 1.81 0.80 - 4.70 x10'3/uL 04/29/2020 9:54 AM CDT [facility] ABS. MONOCYTES 0.62 0.00 - 1.50 x10'3/uL 04/29/2020 9:54 AM CDT [facility] ABS. EOSINOPHILS 0.20 0.00 - 0.40 x10'3/uL 04/29/2020 9:54 AM CDT [facility] ABS. BASOPHILS 0.04 0.00 - 0.20 x10'3/uL 04/29/2020 9:54 AM CDT [facility] ABS. IMMATURE GRANULOCYTES 0.33(H) 0.00 - 0.03 x10'3/uL 04/29/2020 9:54 AM CDT [facility] ABS. NUCLEATED RBC'S 0.03(H) 0.00 x10'3/uL 04/29/2020 9:54 AM CDT [facility] PLT MORPH. DECREASED 04/29/2020 9:54 AM CDT [facility] RBC MORPHOLOGY 1+ 04/29/2020 9:54 AM CDT [facility] Comment:ANISOCYTOSIS 04/29/2020 9:22 AM CDT Roberta Alex MD LABORATORY Final Result [facility] [address] [place] [address], documented in this encounter Visit Diagnoses Diagnosis Iron deficiency anemia due to chronic blood loss- Primary Iron deficiency anemia secondary to blood loss (chronic) Chronic ITP (idiopathic thrombocytopenia) ([facility]) Immune thrombocytopenic purpura Iron deficiency anemia secondary to inadequate dietary iron intake Polysubstance abuse ([facility]) Other, mixed, or unspecified nondependent drug abuse, unspecified Other dietary vitamin B12 deficiency anemia documented in this encounter Care Teams Hand Laster Relationship Specialty Start Date End Date Alejandro Blevins MD PCP - General FAMILY PRACTICE 12/10/19 documented as of this encounter
--- OUTSIDE RECORDS SUMMARY | 2024-07-11 10:02 | XMS_ITS | Encounter Summary ---
Author Organization [facility] Address [facility] [facility] [place] [address] [place] [address] Care Team Providers Care Power Generating Plant Operator Name Role Phone Alejandro Blevins MD Primary Care Provider [phone] Encounter Details Date Type Department Care Team (Latest Contact Info) Description 04/16/2020 8:50 AM CDT - 04/16/2020 11:59 PM CDT Hospital Encounter [address] [place] [address] Roberta Alex MD [address] [place], [place] [address] Discharge Disposition: Home or Self Care (Routine Discharge) Social History Tobacco Use Types Packs/Day Years Used Date Smoking Tobacco: Every Day Smokeless Tobacco: Never Comments Yes Sex and Gender Information Value Date Recorded Sex Assigned at Not on file Legal Sex Female 11:30 PM SENIOR COMPUTER SPECIALIST Gender Identity Female 11/10/2021 3:09 PM [...] Contact Info) Description 09/25/2024 11:30 AM SENIOR COMPUTER SPECIALIST Appointment [facility] [place] [address] Roberta Alex MD [address] [place] [address] 09/25/2024 11:40 AM SENIOR COMPUTER SPECIALIST Office Visit [facility] [place] [address] Roberta Alex MD [address] [place] [phone] documented as of this encounter Procedures Procedure Name Priority Date/Time Associated Diagnosis Comments CBC W/DIFF AUTOMATED Routine 04/16/2020 10:17 AM CDT Thrombocytopenia affecting ([facility]) FERRITIN Routine 04/16/2020 10:17 AM CDT Thrombocytopenia affecting ([facility]) documented in this encounter Results * FERRITIN (04/16/2020 10:17 AM CDT) FERRITIN 13.0 8 - 252 NG/ML 04/16/2020 10:52 AM CDT [facility] 04/16/2020 10:1 7 AM CDT Roberta Alex MD LABORATORY Final Result [facility] [address] [place] [address], * (ABNORMAL) CBC W/DIFF AUTOMATED (04/16/2020 10:17 AM CDT) WBC 8.9 4.5 - 10.8 x10'3/uL 04/16/2020 10:34 AM CDT [facility] RBC 4.29 4.10 - 5.40 x10'6/uL 04/16/2020 10:34 AM CDT [facility] HGB 11.2(L) 12.0 - 16.0 G/DL 04/16/2020 10:34 AM CDT [facility] HCT 35.8(L) 36.0 - 47.0 % 04/16/2020 10:34 AM CDT [facility] MCV 83.4 78.0 - 100.0 FL 04/16/2020 10:34 AM CDT [facility] MCH 26.1(L) 27.0 - 31.0 PG 04/16/2020 10:34 AM CDT [facility] MCHC 31.3(L) 33.0 - 36.0 G/DL 04/16/2020 10:34 AM CDT [facility] RDW 19.5(H) 11.5 - 14.5 % 04/16/2020 10:34 AM CDT [facility] PLT 33(L) 150 - 350 x10'3/uL 04/16/2020 10:34 AM CDT [facility] MPV RESULTS NOT AVAILABLE 7.4 - 10.4 FL 04/16/2020 10:34 AM CDT [facility] DIFFERENTIAL COMMENT NORMAL REFERENCE RANGE NOT ESTABLISHED FOR THE PROPORTIONAL LEUKOCYTE DIFFERENTIAL. 04/16/2020 10:34 AM CDT [facility] SEG NEUTROPHILS 70.6 % 0 10:55 AM CDT [facility] LYMPHOCYTES 19.3 % 04/16/2020 10:55 AM CDT [facility] MONOCYTES 6.8 % 04/16/2020 10:55 AM CDT [facility] EOSINOPHILS 1.6 % 04/16/2020 10:55 AM CDT [facility] BASOPHILS 0.4 % 04/16/2020 10:55 AM CDT [facility] IMMATURE GRANS % 1.3 % 04/16/20 10:55 AM CDT [facility] NRBC 0.2 % 04/16/2020 10:55 AM CDT [facility] ABS. NEUTROPHILS 6.28 1.60 - 8.30 x10'3/uL 04/16/2020 10:55 AM CDT [facility] ABS. LYMPHOCYTES 1.72 0.80 - 4.70 x10'3/uL 04/16/2020 10:55 AM CDT [facility] ABS. MONOCYTES 0.61 0.00 - 1.50 x10'3/uL 04/16/2020 10:55 AM CDT [facility] ABS. EOSINOPHILS 0.14 0.00 - 0.40 x10'3/uL 04/16/2020 10:55 AM CDT [facility] ABS. BASOPHILS 0.04 0.00 - 0.20 x10'3/uL 04/16/2020 10:55 AM CDT [facility] ABS. IMMATURE GRANULOCYTES 0.12(H) 0.00 - 0.03 x10'3/uL 04/16/2020 10:55 AM CDT [facility] ABS. NUCLEATED RBC'S 0.02(H) 0.00 x10'3/uL 04/16/2020 10:55 AM CDT [facility] PLT MORPH. DECREASED 04/16/2020 10:55 AM CDT [facility] RBC MORPHOLOGY 1+ 04/16/2020 10:55 AM CDT [facility] Comment:HYPOCHROMASIA 04/16/2020 10:1 7 AM CDT us Roberta Alex MD LABORATORY Final Result [facility] [address] [employer] [place] [address], documented in this encounter Visit Diagnoses Diagnosis Thrombocytopenia affecting (CMS/HCC [facility]/HCC) documented in this encounter Care Teams Power Generating Plant Operator Relationship Specialty Start Date End Date Alejandro Blevins MD PCP - General FAMILY PRACTICE 12/10/19 documented as of this encounter
--- OUTSIDE RECORDS SUMMARY | 2024-07-11 10:02 | XMS_ITS | Encounter Summary ---
Author Organization [facility] Address [facility] [facility] [place] [address] [place] [address] Care Team Providers Care Public Health Officer Name Role Phone Alejandro Blevins MD Primary Care Provider [phone] Encounter Details Date Type Department Care Team ([facility] Contact Info) Description 05/16/2020 Orders Only [facility] [place] [address] Tejinder Garcia, [facility] Social History Tobacco Use Types Packs/Day Years Used Date Smoking Tobacco: Every Day Smokeless Tobacco: Never Comments Yes Sex and Gender Information Value Date Recorded Sex Assigned at Not on file Legal Sex Female 11:30 PM SHEET METAL HELPER Gender Identity Female 11/10/2021 3:09 PM [...] (Late Contact Info) Description 09/25/2024 11:30 AM SHEET METAL HELPER Appointment [facility] [place] [address] Roberta Alex MD [address] [place] [address] 09/25/2024 11:40 AM SHEET METAL HELPER Office Visit [facility] [place] [address] [address] Roberta Alex MD [address] [place] [address] documented as of this encounter Results * (ABNORMAL) CARDIOLIPIN ANTIBODIES (IGG,IGA,IGM) (07/08/2020 11:55 AM SHEET METAL HELPER) CARDIOLIPIN AB IGG <14 <=14 GPL 2019 2:29 AM SHEET METAL HELPER [employer] USASCARLETT PEACE Comment: Cardiolipin Ab (IgG) Reference Range: Value ? Interpretation ? < or = 14 ? Negative 15 - 20 ? Indeterminate 21 - 80 ? Low to Medium Positive > 80 ?High Positive CARDIOLIPIN AB IGM 41(H) <=12 MPL 2019 2:29 AM SHEET METAL HELPER [employer] JUSTIN PEACE Comment: >40 MPL is a [...] drug therapy or aging. Test Performed by [employer] [facility], [facility], [address] [place], [place] Hank Landin M.D., Ph.D., Director of Laboratories , CLIA [id number] CARDIOLIPIN AB IGA <11 <=11 APL 2019 2:29 AM SHEET METAL HELPER [employer] PILLAISCARLETT PEACE Comment: Cardiolipin Ab (IgA) Reference Range: Value ? Interpretation ? < or = 11 ? Negative 12 - 20 ? Indeterminate 21 - 80 ? Low to Medium Positive > 80 ?High Positive 07/08/2020 11:5 5 AM SHEET METAL HELPER Roberta Alex MD LABORATORY Final Result Performing Organization Address City/[facility]/ZIP Co de Phone Number [employer] [address] [address], [place] [phone] * VITAMIN B-12 (07/08/2020 11:55 AM SHEET METAL HELPER) Pathologist [facility] VITAMIN B12 S/P/B 919 193 - 986 PG/ML 07/09/2020 6:17 PM SHEET METAL HELPER [facility] 07/08/2020 11:5 5 AM SHEET METAL HELPER Roberta Alex MD LABORATORY Final Result [facility] [address] [place] [address], [place] [phone] [id number] * FERRITIN (07/08/2020 11:55 AM SHEET METAL HELPER) Pathologist [facility] FERRITIN 21.1 8 - 252 NG/ML 07/08/2020 12:35 PM SHEET METAL HELPER [facility] 07/08/2020 11:5 5 AM SHEET METAL HELPER Roberta Alex MD LABORATORY Final Result [facility] [address] [place] [address], documented in this encounter Visit Diagnoses Diagnosis Anemia- Primary Anemia, unspecified Iron deficiency anemia secondary to inadequate dietary iron intake Chronic ITP (idiopathic thrombocytopenia) (CMS/HCC [facility]/HCC) Immune thrombocytopenic purpura documented in this encounter Care Teams Public Health Officer Relationship Specialty Start Date End Date Alejandro Blevins MD PCP - General FAMILY PRACTICE 12/10/19 documented as of this encounter
--- OUTSIDE RECORDS SUMMARY | 2024-07-11 10:02 | XMS_ITS | Encounter Summary ---
Author Organization [facility] Address [address] [place] [address]. [place], [place] [id number] [place] [address] Care Team Providers Care Senior It Project Manager Name Role Phone Alejandro Blevins MD Primary Care Provider [phone] Encounter Details Date Type Department Care Team (Latest Contact Info) Description 03/25/2020 Travel Social History Tobacco Use Types Packs/Day Years Used Date Smoking Tobacco: Every Day Smokeless Tobacco: Never Comments Yes Sex and Gender Information Value Date Recorded Sex Assigned at Not on file Legal Sex Female 11:30 PM CORN BREEDER Gender Identity Female 11/10/2021 3:09 PM CDT [...] Contact Info) Description 09/25/2024 11:30 AM CORN BREEDER Appointment [facility] [address] [place] [address] Roberta Alex MD [address] [place] [address] 09/25/2024 11:40 AM CORN BREEDER Office Visit [facility] [address] [place] [address] Roberta Alex MD [address] [place] [address] documented as of this encounter Visit Diagnoses Not on filedocumented in this encounter Care Teams Senior It Project Manager Relationship Specialty Start Date End Date Alejandro Blevins MD PCP - General FAMILY PRACTICE 12/10/19 documented as of this encounter
--- OUTSIDE RECORDS SUMMARY | 2024-07-11 10:02 | XMS_ITS | Encounter Summary ---
Author Organization [facility] Address [address] [place] [address]. [place] [address] [place] [address] Care Team Providers Care Body Mechanic Name Role Phone Alejandro Blevins MD Primary Care Provider [phone] Reason for Visit * Reason Comments Infusion Therapy * Treatment/Therapy Plan Authorization (Routine) - Closed Specialty Diagnoses / Procedures Referred By Contac t Referred To Contact Diagnoses Iron deficiency anemia secondary to inadequate dietary iron intake Procedures IRON SUCROSE INJ, 20 MG Roberta Alex MD [address] [place] [address] Phone: tel: fax: [facility] [place] [address] Phone: tel: Referral ID Status Reason Start Date Expiration Date Visits Re quested Visits Authorized [id number] Closed 12/19/2019 04/23/2020 1 3 Encounter Details Date Type Department Care Team (Latest Contact Info) Description 02/15/2020 11:00 AM CDT - 02/15/2020 11:59 PM T Hospital Encounter [facility] [place] [address] Roberta Alex MD [address] [place] [address] Infusion Therapy Discharge Disposition: Home or Self Care (Routine Discharge) Social History Tobacco Use Types Packs/Day Years Used Date Smoking Tobacco: Every Day Smokeless Tobacco: Never Comments Yes Sex and Gender Information Value Date Recorded Sex Assigned at Not on file Legal Sex Female 11:30 PM PRINCIPAL TECHNICAL ARCHITECT Gender Identity Female 11/10/2021 3:09 [...] CDT Call the infusion center or the impregnator and drier helper board of education secretary with any post infusion concerns. Return to [...] Contact Info) Description 09/25/2024 11:30 AM PRINCIPAL TECHNICAL ARCHITECT Appointment [facility] [address] [place] [address] Roberta Alex MD [address] [place] [address] 09/25/2024 11:40 AM PRINCIPAL TECHNICAL ARCHITECT Office Visit [facility] [address] [place] [address] Roberta Alex MD [address] [place] [address] documented as of this encounter Procedures Procedure Name Priority Date/Time Associated Diagnosis Comments VITAMIN B-12 Routine 02/15/2020 11:35 AM CDT Anemia, unspecified type FOLIC ACID SERUM Routine 02/15/2020 11:3 5 AM CDT Anemia, unspecified type documented in this encounter Results * FOLIC ACID SERUM (02/15/2020 11:35 AM CDT) FOLATE 10.2 3.1 - 17.5 NG/ML 02/16/2020 5:23 PM CDT [facility] Comment:MILD HEMOLYSIS, RESU LT MAY BE AFFECTED. 02/15/2020 11:3 5 AM CDT us Roberta Alex MD LABORATORY Final Result Performing Organization Address [facility] Co de Phone Number [facility] [address] [place] [address], [phone] * VITAMIN B-12 (02/15/2020 11:35 AM CDT) VITAMIN B12 S/P/B 281 193 - 986 PG/ML 02/16/2020 5:23 PM CDT [facility] 02/15/2020 11:3 5 AM CDT us Roberta Alex MD LABORATORY Final Result Performing Organization Address [facility] de Phone Number [facility] [address] [place] [address], [place] [phone] documented in this encounter Visit Diagnoses Diagnosis [...] mL/hr documented in this encounter Care Teams Body Mechanic Relationship Specialty Start Date End Date Alejandro Blevins MD PCP - General FAMILY PRACTICE 12/10/19 documented as of this encounter
--- OUTSIDE RECORDS SUMMARY | 2024-07-11 10:03 | XMS_ITS | Encounter Summary ---
Author Organization [facility] Address [facility] [place] [address] [place] [address] Care Team Providers Care Briquetting Machine Operator Name Role Phone Alejandro Blevins MD Primary Care Provider [phone] Encounter Details Date Type Department Care Team (Late Contact Info) Description 02/05/2020 Orders Only [facility][note 2] [place] [address] Kamilah Thompson RN Social History Tobacco Use Types Packs/Day Years Used Date Smoking Tobacco: Every Day Smokeless Tobacco: Never Comments Yes Sex and Gender Information Value Date Recorded Sex Assigned at Not on file Legal Sex Female 11:30 PM WALLPAPER HANGER HELPER Gender Identity Female 11/10/2021 3:09 PM [...] (Late Contact Info) Description 09/25/2024 11:30 AM WALLPAPER HANGER HELPER Appointment [facility] [place] [address] Roberta Alex MD [address] [place] [address] 09/25/2024 11:40 AM WALLPAPER HANGER HELPER Office Visit [facility] [place][note 2] [place] [address] [address] [address] Roberta Alex MD [address] [place] [address] documented as of this encounter Results * FERRITIN (03/04/2020 10:54 AM CDT) FERRITIN 25.3 8 - 252 NG/ML 03/04/2020 11:37 AM CDT [facility] 03/04/2020 10:5 4 AM CDT Roberta Alex MD LABORATORY Final Result Performing Organization Address City/[facility]/ZIP Co de Phone Number [facility] [address] [place] [address], * (ABNORMAL) IRON SAT PANEL (IRON,IBC,%SAT) (03/04/2020 10:54 AM CDT) Pathologist [facility] IRON 31(L) 50 - 170 MCG/DL 03/04/2020 11:27 AM CDT [facility] IRON BINDING CAPACITY 721(H) 250 - 450 MCG/DL 03/04/2020 11:27 AM CDT [facility] IRON SATURATION 4 % 0 11:27 AM CDT [facility] Comment:REFERENCE RANGE NOT ESTABLISHED 03/04/2020 10:5 4 AM CDT Roberta Alex MD LABORATORY Final Result [facility] [address] [place] [address], * (ABNORMAL) CBC W/DIFF AUTOMATED (03/04/2020 10:54 AM CDT) Pathologist [facility] WBC 9.7 4.5 - 10.8 x10'3/uL 03/04/2020 11:04 AM CDT [facility] RBC 4.11 4.10 - 5.40 x10'6/uL 03/04/2020 11:04 AM CDT [facility] HGB 10.8(L) 12.0 - 16.0 G/DL 03/04/2020 11:04 AM CDT [facility] HCT 34.8(L) 36.0 - 47.0 % 03/04/2020 11:04 AM CDT [facility] MCV 84.7 78.0 - 100.0 FL 03/04/2020 11:04 AM CDT [facility] MCH 26.3(L) 27.0 - 31.0 PG 03/04/2020 11:04 AM CDT [facility] MCHC 31.0(L) 33.0 - 36.0 G/DL 03/04/2020 11:04 AM CDT [facility] RDW 21.1(H) 11.5 - 14.5 % 03/04/2020 11:04 AM CDT [facility] PLT 42(L) 150 - 350 x10'3/uL 03/04/2020 11:04 AM CDT [facility] MPV RESULTS NOT AVAILABLE 7.4 - 10.4 FL 03/04/2020 11:04 AM CDT [facility] DIFFERENTIAL COMMENT NORMAL REFERENCE RANGE NOT ESTABLISHED FOR THE PROPORTIONAL LEUKOCYTE DIFFERENTIAL. 03/04/2020 11:04 AM CDT [facility] SEG NEUTROPHILS 76.6 % 0 11:31 AM CDT [facility] LYMPHOCYTES 16.6 % 03/04/2020 11:31 AM CDT [facility] MONOCYTES 4.8 % 03/04/2020 11:31 AM CDT [facility] EOSINOPHILS 0.7 % 03/04/2020 11:31 AM CDT [facility] BASOPHILS 0.4 % 03/04/2020 11:31 AM CDT [facility] IMMATURE GRANS % 0.9 % 03/04/20 20 11:31 AM CDT [facility] NRBC 0.0 % 03/04/2020 11:31 AM CDT [facility] ABS. NEUTROPHILS 7.42 1.60 - 8.30 x10'3/uL 03/04/2020 11:31 AM CDT [facility] ABS. LYMPHOCYTES 1.61 0.80 - 4.70 x10'3/uL 03/04/2020 11:31 AM CDT [facility] ABS. MONOCYTES 0.47 0.00 - 1.50 x10'3/uL 03/04/2020 11:31 AM CDT [facility] ABS. EOSINOPHILS 0.07 0.00 - 0.40 x10'3/uL 03/04/2020 11:31 AM CDT [facility] ABS. BASOPHILS 0.04 0.00 - 0.20 x10'3/uL 03/04/2020 11:31 AM CDT [facility] ABS. IMMATURE GRANULOCYTES 0.09(H) 0.00 - 0.03 x10'3/uL 03/04/2020 11:31 AM CDT [facility] ABS. NUCLEATED RBC'S 0.00 0.00 x10'3/uL 03/04/2020 11:31 AM CDT [facility] PLT MORPH. DECREASED 03/04/2020 11:31 AM CDT [facility] RBC MORPHOLOGY 1+ 03/04/2020 11:31 AM CDT [facility] Comment: HYPOCHROMASIA 1+ ANISOCYTOSIS 03/04/2020 10:5 4 AM CDT Roberta Alex MD LABORATORY Final Result [facility] [place] [address], documented in this encounter Visit Diagnoses Diagnosis Thrombocytopenia affecting (CMS/HCC HHS/HCC)- Primary Iron deficiency anemia secondary to inadequate dietary iron intake documented in this encounter Care Teams Briquetting Machine Operator Relationship Specialty Start Date End Date Alejandro Blevins MD PCP - General FAMILY PRACTICE 12/10/19 documented as of this encounter
--- OUTSIDE RECORDS SUMMARY | 2024-07-11 10:03 | XMS_ITS | Encounter Summary ---
Author Organization [facility] Address [facility] [place] [address] [place] [address] Care Team Providers Care Ethanol Operations Manager Name Role Phone Alejandro Blevins MD Primary Care Provider [phone] Encounter Details Date Type Department Care Team (Late Contact Info) Description 02/12/2020 Orders Only [facility] [place] [address] Kamilah Thompson RN Social History Tobacco Use [...] (Late Contact Info) Description 09/25/2024 11:30 AM METAL SLITTER Appointment [facility] [place] [address] Roberta Alex MD [address] [place] [address] 09/25/2024 11:40 AM METAL SLITTER Office Visit [facility] [place] [address] [address] Roberta Alex MD [address] [place] [address] documented as of this encounter Results * FOLIC ACID SERUM (02/15/2020 11:35 AM CDT) FOLATE 10.2 3.1 - 17.5 NG/ML 02/16/2020 5:23 PM CDT [facility] Comment:MILD HEMOLYSIS, RESU LT MAY BE AFFECTED. 02/15/2020 11:3 5 AM CDT Roberta Alxe MD LABORATORY Final Result Performing Organization Address City/[facility]/ZIP Co de Phone Number [facility] [address] [place] [address], [phone] * VITAMIN B-12 (02/15/2020 11:35 AM CDT) VITAMIN B12 S/P/B 281 193 - 986 PG/ML 02/16/2020 5:23 PM CDT [facility] 02/15/2020 11:3 5 AM CDT Roberta Alex MD LABORATORY Final Result [facility] [address] [place] [address], [phone] documented in this encounter Visit Diagnoses Diagnosis Anemia, unspecified type- Primary documented in this encounter Care Teams Ethanol Operations Manager Relationship Specialty Start Date End Date Alejandro Blevins MD PCP - General FAMILY PRACTICE 12/10/19 documented as of this encounter
--- OUTSIDE RECORDS SUMMARY | 2024-07-11 10:03 | XMS_ITS | Encounter Summary ---
Author Organization [facility] Address [address] [place] [address]. [place], [place] [address] [place] [address] Care Team Providers Care Bessemer Bottom Maker Name Role Phone Alejandro Blevins MD Primary Care Provider [phone] Encounter Details Date Type Department Care Team (Latest Contact Info) Description 02/05/2020 Travel Social History Tobacco Use Types Packs/Day Years Used Date Smoking Tobacco: Every Day Smokeless Tobacco: Never Comments Yes Sex and Gender Information Value Date Recorded Sex Assigned at Not on file Legal Sex Female 11:30 PM JUDO TEACHER Gender Identity Female 11/10/2021 3:09 PM [...] st Contact Info) Description 09/25/2024 11:30 AM JUDO TEACHER Appointment [facility] [address] [place] [address] Roberta Alex MD [address] [place] [address] 09/25/2024 11:40 AM JUDO TEACHER Office Visit [facility] [address] [place] [address] Roberta Alex MD [address] [place] [address] documented as of this encounter Visit Diagnoses Not on filedocumented in this encounter Care Teams Bessemer Bottom Maker Relationship Specialty Start Date End Date Alejandro Blevins MD PCP - General FAMILY PRACTICE 12/10/19 documented as of this encounter
--- OUTSIDE RECORDS SUMMARY | 2024-07-11 10:04 | XMS_ITS | Encounter Summary ---
Author Organization [facility] Address [address] [place] [address]. [place] [address] [place] [address] Care Team Providers Care Research Animal Attendant Name Role Phone Alejandro Blevins MD Primary Care Provider Encounter Details Date Type Department Care Team (Latest Contact Info) Description 01/03/2020 Travel Social History Tobacco Use Types Packs/Day Years Used Date Smoking Tobacco: Every Day Smokeless Tobacco: Never Comments Yes Sex and Gender Information Value Date Recorded Sex Assigned at Not on file Legal Sex Female 11:30 PM YOUTH LIAISON OFFICER Gender Identity Female 11/10/2021 3:09 PM [...] st Contact Info) Description 09/25/2024 11:30 AM YOUTH LIAISON OFFICER Appointment [facility] [address] [place] [address] Roberta Alex MD [address] [place] [address] 09/25/2024 11:40 AM YOUTH LIAISON OFFICER Office Visit [facility] [address] [place] [address] Roberta Alex MD [address] [place] [address] documented as of this encounter Visit Diagnoses Not on filedocumented in this encounter Care Teams Research Animal Attendant Relationship Specialty Start Date End Date Alejandro Blevins MD PCP - General FAMILY PRACTICE 12/10/19 documented as of this encounter
--- OUTSIDE RECORDS SUMMARY | 2024-07-11 10:04 | XMS_ITS | Encounter Summary ---
Author Organization [facility] Address [address] [place] [address]. [place] [address] [place] [address] Care Team Providers Care Crabber Name Role Phone Alejandro Blevins MD Primary Care Provider [phone] Encounter Details Date Type Department Care Team (Latest Contact Info) Description 12/28/2019 Travel Social History Tobacco Use Types Packs/Day Years Used Date Smoking Tobacco: Never Assessed Comments Yes Sex and Gender Information Value Date Recorded Sex Assigned at Not on file Legal Sex Female 11:30 PM BOTTLE BLOWING MACHINE TENDER Gender Identity Female 11/10/2021 3:09 [...] Contact Info) Description 09/25/2024 11:30 AM BOTTLE BLOWING MACHINE TENDER Appointment [facility] [address] [place] [address] Roberta Alex MD [address] [place] [address] 09/25/2024 11:40 AM BOTTLE BLOWING MACHINE TENDER Office Visit [facility] [address] [place] [address] Roberta Alex MD [address] [place] [address] documented as of this encounter Visit Diagnoses Not on filedocumented in this encounter Care Teams Crabber Relationship Specialty Start Date End Date Alejandro Bleivns MD PCP - General FAMILY PRACTICE 12/10/19 documented as of this encounter
--- OUTSIDE RECORDS SUMMARY | 2024-07-11 10:04 | XMS_ITS | Encounter Summary ---
Author Organization [facility] Address [facility] [place] [address] [place] [address] Care Team Providers Care Location Man Name Role Phone Unavailable Primary Care Provider Unavailabl e Encounter Details Date Type Department Care Team (Late Contact Info) Description 01/15/2012 Abstract [facility] [place] [address] Kamron Yadav MD [address] [place] [address] Social History Tobacco Use Types Packs/Day Years Used Date Smoking Tobacco: Never Assessed Comments Unknown Sex and Gender Information Value Date Recorded Sex Assigned at Not on file Legal Sex Female 11:30 PM AUTOMOBILE RENTAL CLERK Gender Identity Female 11/10/2021 3:09 PM CDT Sexual Orientation Straight 11/10/2021 3: 09 PM CDT documented as of this encounter Plan of Treatment Upcoming Encounters Date Type Department Care Team (Late Contact Info) Description 09/25/2024 11:30 AM AUTOMOBILE RENTAL CLERK Appointment [facility] [address] [place] [address] Roberta Alex MD [address] [place] [address] 09/25/2024 11:40 AM AUTOMOBILE RENTAL CLERK Office Visit [facility] [facility] [place] [address] Roberta Alex MD [address] [place] [address] documented as of this encounter Visit Diagnoses Diagnosis Injury, other and unspecified, finger documented in this encounter
--- OUTSIDE RECORDS SUMMARY | 2024-07-11 10:04 | XMS_ITS | Encounter Summary ---
Author Organization [facility] Address [address] [facility] [place] [address] [place] [address] Care Team Providers Care Processor Inspector Name Role Phone Unavailable Primary Care Provider Unavailabl e Encounter Details Date Type Department Care Team (Late Contact Info) Description 02/02/2009 Abstract [facility] [address] [place] [address] Conner Gallegos MD [address] [place] [id number] Social History Tobacco Use Types Packs/Day Years Used Date Smoking Tobacco: Never Assessed Comments Unknown Sex and Gender Information Value Date Recorded Sex Assigned at Not on file Legal Sex Female 11:30 PM CARDIAC CARE UNIT NURSE Gender Identity Female 11/10/2021 3:09 PM CDT Sexual Orientation Straight 11/10/2021 3: 09 PM CDT documented as of this encounter Plan of Treatment Upcoming Encounters Date Type Department Care Team (Late Contact Info) Description 09/25/2024 11:30 AM CARDIAC CARE UNIT NURSE Appointment [facility] [address] [place] [address] Roberta Alex MD [address] [place] [address] 09/25/2024 11:40 AM CARDIAC CARE UNIT NURSE Office Visit [facility] [address] [place] [address] Roberta Alex MD [address] [place] [address] documented as of this encounter Visit Diagnoses Diagnosis Sprain of foot Sprain of foot, unspecified site documented in this encounter
--- OUTSIDE RECORDS SUMMARY | 2024-07-11 10:04 | XMS_ITS | Encounter Summary ---
Author Organization [facility] Address [facility] [place] [address] [place] [address] Care Team Providers Care Retail Coordinator Name Role Phone Unavailable Primary Care Provider Unavailabl e Encounter Details Date Type Department Care Team (Late st Contact Info) Description 11/17/2008 Abstract [facility] [address] [place] [address] Social History Tobacco Use Types Packs/Day Years Used Date Smoking Tobacco: Never Assessed Comments Unknown Sex and Gender Information Value Date Recorded Sex Assigned at Not on file Legal Sex Female 11:30 PM CITY ADMINISTRATOR Gender Identity Female 11/10/2021 3:09 PM CDT Sexual Orientation Straight 11/10/2021 3: 09 PM CDT documented as of this encounter Plan of Treatment Upcoming Encounters Date Type Department Care Team (Late st Contact Info) Description 09/25/2024 11:30 AM CITY ADMINISTRATOR Appointment [facility] [address] [place] [address] Roberta Alex MD [address] [place] [address] 09/25/2024 11:40 AM CITY ADMINISTRATOR Office Visit [facility] [address] [place] [address] Roberta Alex MD [address] [place] [address] documented as of this encounter Visit Diagnoses Diagnosis Head injury Head injury, unspecified documented in this encounter
--- OUTSIDE RECORDS SUMMARY | 2024-07-11 10:04 | XMS_ITS | Encounter Summary ---
Author Organization [facility] Address [facility] [place] [address] [place] [address] Care Team Providers Care Flight Tower Dispatcher Name Role Phone Alejandro Blevins MD Primary Care Provider [phone] Reason for Referral * Imaging (Routine) - Closed Specialty Diagnoses / Procedures Referred By Contac t Referred To Contact RADIOLOGY Diagnoses Thrombocytopenia affecting ([facility]/HCC [facility]/HCC) Procedures US ABD LIMITED [place] [address] [place] [address] Phone: tel: Referral ID Status Reason Start Date Expiration Date Visits Re quested Visits Authorized [id number] Closed 12/18/2019 01/17/2021 1 1 Reason for Visit * Reason Comments Consult Encounter Details Date Type Department Care Team (Late st Contact Info) Description 12/18/2019 1:00 PM CDT Initial Consult [address] [place] [address] Sunny Hinkle MD [address] [place] [address] Consult Social History Tobacco Use Types Packs/Day Years Used Date Smoking Tobacco: Never Assessed Comments Yes Sex and Gender Information Value Date Recorded Sex Assigned at Not on file Legal Sex Female 11:30 PM BUSINESS INTELLIGENCE MANAGER Gender Identity Female 11/10/2021 3:09 PM [...] B12 deficiency. She was recently hospitalized at [facility] with severe anemia. Pertinent labs with [...] the past. She reports also following with [facility] plastic extrusion operator Dr. Dick Bonilla 5 years ago for [...] file Gets together: Not on file Attends spiritism service: Not on file Active member of [...] cessation. 5. Chronic Hep C: Referral to [facility]. HCV RNA pending. US of liver as [...] Contact Info) Description 09/25/2024 11:30 AM BUSINESS INTELLIGENCE MANAGER Appointment [address] [place] [address] Sunny Hinkle MD [address] [place] [address] 09/25/2024 11:40 AM BUSINESS INTELLIGENCE MANAGER Office Visit [facility] [address] [place] [address] [place] [address] Sunny Hinkle MD [address] [place] [address] documented as of this encounter Results * (ABNORMAL) FERRITIN (02/05/2020 11:40 AM CDT) FERRITIN 7.8(L) 8 - 252 NG/ML 02/05/2020 12:14 PM CDT [facility] 02/05/2020 11:4 0 AM CDT Sunny Hinkle MD LABORATORY Final Result Performing Organization Address [facility]/ZIP Co de Phone Number [facility] [address] [place] [phone], * (ABNORMAL) IRON SATURATION PNL (FE/TIBC/SAT) (02/05/2020 11:40 AM CDT) IRON 29(L) 50 - 170 MCG/DL 02/05/2020 12:18 PM CDT [facility] IRON BINDING CAPACITY 623(H) 250 - 450 MCG/DL 02/05/2020 12:18 PM CDT [facility] IRON SATURATION 5 % 0 12:18 PM CDT [facility] Comment:REFERENCE RANGE NOT ESTABLISHED 02/05/2020 11:4 0 AM CDT Sunny Hinkle MD LABORATORY Final Result Performing Organization Address City/[facility]/ZIP Co de Phone Number [facility] [address] [place] [phone], * (ABNORMAL) CBC W/DIFF AUTOMATED (02/05/2020 11:40 AM CDT) WBC 11.3(H) 4.5 - 10.8 x10'3/uL 02/05/2020 11:54 AM CDT [facility] RBC 3.88(L) 4.10 - 5.40 x10'6/uL 02/05/2020 11:54 AM CDT [facility] HGB 9.7(L) 12.0 - 16.0 G/DL 02/05/2020 11:54 AM CDT [facility] HCT 31.9(L) 36.0 - 47.0 % 02/05/2020 11:54 AM CDT [facility] MCV 82.2 78.0 - 100.0 FL 02/05/2020 11:54 AM CDT [facility] MCH 25.0(L) 27.0 - 31.0 PG 02/05/2020 11:54 AM CDT [facility] MCHC 30.4(L) 33.0 - 36.0 G/DL 02/05/2020 11:54 AM CDT [facility] RDW 25.1(H) 11.5 - 14.5 % 02/05/2020 11:54 AM CDT [facility] PLT 42(L) 150 - 350 x10'3/uL 02/05/2020 11:54 AM CDT [facility] MPV RESULTS NOT AVAILABLE 7.4 - 10.4 FL 02/05/2020 11:54 AM CDT [facility] DIFFERENTIAL COMMENT NORMAL REFERENCE RANGE NOT ESTABLISHED FOR THE PROPORTIONAL LEUKOCYTE DIFFERENTIAL. 02/05/2020 11:54 AM CDT [facility] SEG NEUTROPHILS 74.2 % 0 12:20 PM CDT [facility] LYMPHOCYTES 15.2 % 02/05/2020 12:20 PM CDT [facility] MONOCYTES 5.6 % 02/05/2020 12:20 PM CDT [facility] EOSINOPHILS 1.9 % 02/05/2020 12:20 PM CDT [facility] BASOPHILS 0.4 % 02/05/2020 12:20 PM CDT [facility] IMMATURE GRANS % 2.7 % 02/05/20 20 12:20 PM CDT [facility] NRBC 0.0 % 02/05/2020 12:20 PM CDT [facility] ABS. NEUTROPHILS 8.38(H) 1.60 - 8.30 x10'3/uL 02/05/2020 12:20 PM CDT [facility] ABS. LYMPHOCYTES 1.72 0.80 - 4.70 x10'3/uL 02/05/2020 12:20 PM CDT [facility] ABS. MONOCYTES 0.63 0.00 - 1.50 x10'3/uL 02/05/2020 12:20 PM CDT [facility] ABS. EOSINOPHILS 0.21 0.00 - 0.40 x10'3/uL 02/05/2020 12:20 PM CDT [facility] ABS. BASOPHILS 0.05 0.00 - 0.20 x10'3/uL 02/05/2020 12:20 PM CDT [facility] ABS. IMMATURE GRANULOCYTES 0.31(H) 0.00 - 0.03 x10'3/uL 02/05/2020 12:20 PM CDT [facility] ABS. NUCLEATED RBC'S 0.00 0.00 x10'3/uL 02/05/2020 12:20 PM CDT [facility] PLT MORPH. DECREASED 02/05/2020 12:20 PM CDT [facility] RBC MORPHOLOGY 2+ 02/05/2020 12:20 PM CDT [facility] Comment:ANISOCYTOSIS 02/05/2020 11:4 0 AM CDT Sunny Hinkle MD LABORATORY Final Result [facility] [address] [place] [address], documented in this encounter Visit Diagnoses Diagnosis Iron deficiency anemia secondary to inadequate dietary iron intake- Primary Thrombocytopenia affecting (CMS/HCC HHS/HCC) Chronic hepatitis C without hepatic coma (CMS/HCC HHS/HCC) Other dietary vitamin B12 deficiency anemia documented in this encounter Care Teams Flight Tower Dispatcher Relationship Specialty Start Date End Date Alejandro Blveins MD PCP - General FAMILY PRACTICE 12/10/19 documented as of this encounter
--- OUTSIDE RECORDS SUMMARY | 2024-07-11 10:04 | XMS_ITS | Encounter Summary ---
Author Organization [facility] Address [address] [place] [address]. [place] [address] [place] [address] Care Team Providers Care Manager Training Name Role Phone Unavailable Primary Care Provider Unavailabl e Encounter Details Date Type Department Care Team (Late st Contact Info) Description 01/30/2012 Abstract [facility] [address] [place] [address] Social History Tobacco Use Types Packs/Day Years Used Date Smoking Tobacco: Never Assessed Comments Unknown Sex and Gender Information Value Date Recorded Sex Assigned at Not on file Legal Sex Female 11:30 PM DIRECTOR SELECTION AND ADMINISTRATION Gender Identity Female 11/10/2021 3:09 PM CDT Sexual Orientation Straight 11/10/2021 3: 09 PM CDT documented as of this encounter Plan of Treatment Upcoming Encounters Date Type Department Care Team (Late st Contact Info) Description 09/25/2024 11:30 AM DIRECTOR SELECTION AND ADMINISTRATION Appointment [facility] [address] [place] [address] Roberta Alex MD [address] [place] [address] 09/25/2024 11:40 AM DIRECTOR SELECTION AND ADMINISTRATION Office Visit [facility] [address] [place] [address] Roberta Alex MD [address] [place] [address] documented as of this encounter Visit Diagnoses Diagnosis Redness or discharge of eye documented in this encounter
--- OUTSIDE RECORDS SUMMARY | 2024-07-11 10:04 | XMS_ITS | Encounter Summary ---
Author Organization [facility] Address [address] [place] [address]. [place] [address] [place] [address] Care Team Providers Care Dressmaker Garment Fitter Name Role Phone Alejandro Blevins MD Primary Care Provider [phone] Encounter Details Date Type Department Care Team (Latest Contact Info) Description 12/28/2019 9:55 AM CDT - 12/28/2019 9:59 AM CDT Hospital Encounter [address] [place] [address] Roberta Alex MD [address] [place] [address] Discharge Disposition: Home or Self Care (Routine Discharge) Social History Tobacco Use Types Packs/Day Years Used Date Smoking Tobacco: Never Assessed Comments Yes Sex and Gender Information Value Date Recorded Sex Assigned at Not on file Legal Sex Female 11:30 PM PATIENT SUPPORT PARTNER Gender Identity Female 11/10/2021 3:09 PM CDT [...] Contact Info) Description 09/25/2024 11:30 AM PATIENT SUPPORT PARTNER Appointment [facility] [place] [address] Roberta Alex MD [address] [place] [address] 09/25/2024 11:40 AM PATIENT SUPPORT PARTNER Office Visit [facility] [place] [address] Roberta Alex MD [address] [place], [place] [address] documented as of this encounter Procedures Procedure Name Priority Date/Time Associated Diagnosis Comments INTRINSIC FACTOR ANTIBODY Routine 12/28/2019 10:32 AM CDT Hepatitis C virus infection without hepatic coma Thrombocytopenia affecting (CMS/HCC HHS/HCC) Transaminitis documented in this encounter Results * INTRINSIC FACTOR ANTIBODY (12/28/2019 10:32 AM CDT) INTRINSIC FACTOR BLOCK AB Negative Negative 12/30/2019 6:59 PM CDT [employer] JUSTIN PEACE Comment: For additional information, please refer to http://education.[employer]faq/IFAB (This link is being provided for informational/ educational purposes only.) Test Performed by Scott Quintana, [employer] Jovan Rodriguez [place], [address] [place] [address] Hank Landin M.D., Ph.D., Director of Laboratories , [place] [id number] 12/28/2019 10:3 2 AM CDT Roberta Alex MD LABORATORY Final Result [facility] [address] [address], documented in this encounter Visit Diagnoses Diagnosis Hepatitis C virus infection without hepatic coma Thrombocytopenia affecting (CMS/HCC HHS/HCC) Transaminitis Nonspecific elevation of levels of transaminase or lactic acid dehydrogenase (LDH) documented in this encounter Care Teams Dressmaker Garment Fitter Relationship Specialty Start Date End Date Alejandro Blevins MD PCP - General FAMILY PRACTICE 12/10/19 documented as of this encounter
--- OUTSIDE RECORDS SUMMARY | 2024-07-11 10:04 | XMS_ITS | Encounter Summary ---
Author Organization [facility] Address [facility] [address] [place] [address] Care Team Providers Care Used Car Salesperson Name Role Phone Unavailable Primary Care Provider Unavailabl e Encounter Details Date Type Department Care Team (Late Contact Info) Description 04/30/2010 Abstract [facility] [address] [place] [address] Joseph Iqbal MD [address] [place] [address] Social History Tobacco Use Types Packs/Day Years Used Date Smoking Tobacco: Never Assessed Comments Unknown Sex and Gender Information Value Date Recorded Sex Assigned at Not on file Legal Sex Female 11:30 PM CARROTING MACHINE OPERATOR Gender Identity Female 11/10/2021 3:09 PM CDT Sexual Orientation Straight 11/10/2021 3: 09 PM CDT documented as of this encounter Plan of Treatment Upcoming Encounters Date Type Department Care Team (Late Contact Info) Description 09/25/2024 11:30 AM CARROTING MACHINE OPERATOR Appointment [facility] [address] [place] [address] Roberta Alex MD [address] [place] [address] 09/25/2024 11:40 AM CARROTING MACHINE OPERATOR Office Visit [facility] [address] [place] [address] Roberta Alex MD [address] [place] [address] documented as of this encounter Visit Diagnoses Diagnosis Pain in joint, lower leg documented in this encounter
--- OUTSIDE RECORDS SUMMARY | 2024-07-11 10:04 | XMS_ITS | Encounter Summary ---
Author Organization [facility] Address [facility] [address] [place] [address] Care Team Providers Care Hi Lo Driver Name Role Phone Unavailable Primary Care Provider Unavailabl e Encounter Details Date Type Department Care Team (Late Contact Info) Description 08/14/2014 Abstract [facility] [address] [place] [address] Gloria Jain MD [address] [place] [address] [place] [address] Social History Tobacco Use Types Packs/Day Years Used Date Smoking Tobacco: Never Assessed Comments Unknown Sex and Gender Information Value Date Recorded Sex Assigned at Not on file Legal Sex Female 11:30 PM REHAB LIAISON Gender Identity Female 11/10/2021 3:09 PM CDT Sexual Orientation Straight 11/10/2021 3: 09 PM CDT documented as of this encounter Plan of Treatment Upcoming Encounters Date Type Department Care Team (Late Contact Info) Description 09/25/2024 11:30 AM REHAB LIAISON Appointment [facility] [address] [place] [address] Roberta Alex MD [address] [place] [address] 09/25/2024 11:40 AM REHAB LIAISON Office Visit [facility] [address] [place] [address] Roberta Alex MD [address] [place] [address] documented as of this encounter Visit Diagnoses Diagnosis Hepatitis C virus infection without hepatic coma documented in this encounter
--- OUTSIDE RECORDS SUMMARY | 2024-07-11 10:04 | XMS_ITS | Encounter Summary ---
Author Organization [facility] Address [address] [place] [address]. [place] [address] [place] [address] Care Team Providers Care Professor Of Marketing Name Role Phone Alejandro Blevins MD Primary Care Provider [phone] Encounter Details Date Type Department Care Team (Latest Contact Info) Description 12/26/2019 Travel Social History Tobacco Use Types Packs/Day Years Used Date Smoking Tobacco: Never Assessed Comments Yes Sex and Gender Information Value Date Recorded Sex Assigned at Not on file Legal Sex Female 11:30 PM [place]P [place] Gender Identity Female 11/10/2021 3:09 PM CDT [...] st Contact Info) Description 09/25/2024 11:30 AM [place]P [place] Appointment [facility] [address] [place] [address] Roberta Alex MD [address] [place] [address] 09/25/2024 11:40 AM [place]P [place] Office Visit [facility] [address] [place] [address] Roberta Alex MD [address] [place] [address] documented as of this encounter Visit Diagnoses Not on filedocumented in this encounter Care Teams Professor Of Marketing Relationship Specialty Start Date End Date Alejandro Blevins MD PCP - General FAMILY PRACTICE 12/10/19 documented as of this encounter
--- OUTSIDE RECORDS SUMMARY | 2024-07-11 10:04 | XMS_ITS | Encounter Summary ---
Author Organization [facility] Address [facility] [facility] [place] [address] [place] [address] Care Team Providers Care Informatics Spec Name Role Phone Unavailable Primary Care Provider Unavailabl e Encounter Details Date Type Department Care Team (Late Contact Info) Description 05/06/2010 Abstract [facility] [address] [place] [address] Joseph Iqbal MD [address] [place] [address] Social History Tobacco Use Types Packs/Day Years Used Date Smoking Tobacco: Never Assessed Comments Unknown Sex and Gender Information Value Date Recorded Sex Assigned at Not on file Legal Sex Female 11:30 PM MARINE EXTENSION AGENT Gender Identity Female 11/10/2021 3:09 PM CDT Sexual Orientation Straight 11/10/2021 3: 09 PM CDT documented as of this encounter Plan of Treatment Upcoming Encounters Date Type Department Care Team (Late Contact Info) Description 09/25/2024 11:30 AM MARINE EXTENSION AGENT Appointment [facility] [address] [place] [address] Roberta Alex MD [address] [place] [address] 09/25/2024 11:40 AM MARINE EXTENSION AGENT Office Visit [facility] [address] [place] [address] Roberta Alex MD [address] [place] [address] documented as of this encounter Visit Diagnoses Diagnosis Other and unspecified derangement of medial meniscus documented in this encounter
--- OUTSIDE RECORDS SUMMARY | 2024-07-11 10:04 | XMS_ITS | Encounter Summary ---
Author Organization [facility] Address [address] [place] [address]. [place], [place] [address] [place] [address] Care Team Providers Care Wet Chemistry Analyst Name Role Phone Alejandro Blevins MD Primary Care Provider [phone] Reason for Referral * Imaging (Routine) - Closed Specialty Diagnoses / Procedures Referred By Contac t Referred To Contact RADIOLOGY Diagnoses Hepatitis C virus infection without hepatic coma Thrombocytopenia affecting (CMS/HCC HHS/HCC) Transaminitis Procedures US ABD LIMITED [facility] [place] [address] Phone: tel: Referral ID Status Reason Start Date Expiration Date Visits Re quested Visits Authorized [id number] Closed 12/19/2019 01/18/2021 1 1 * Imaging (Routine) - Closed Specialty Diagnoses / Procedures Referred By Contac t Referred To Contact RADIOLOGY Diagnoses Thrombocytopenia affecting (CMS/HCC HHS/HCC) Procedures US ABD LIMITED [facility] [place] [address] Phone: tel: Referral ID Status Reason Start Date Expiration Date Visits Re quested Visits Authorized [id number] Closed 12/18/2019 01/17/2021 1 1 Reason for Visit * Imaging (Routine) - Closed Specialty Diagnoses / Procedures Referred By Contac t Referred To Contact RADIOLOGY Diagnoses Thrombocytopenia affecting (CMS/HCC HHS/HCC) Procedures US ABD LIMITED [facility] [place] [address] Phone: tel: Referral ID Status Reason Start Date Expiration Date Visits Re quested Visits Authorized [id number] Closed 12/18/2019 01/17/2021 1 1 Encounter Details Date Type Department Care Team (Latest Contact Info) Description 12/26/2019 8:00 AM CDT - 12/26/2019 11:59 PM CDT Hospital Encounter [facility] [address] [place] [address] Roberta Alex MD [address] [place] [address] Discharge Disposition: Home or Self Care (Routine Discharge) Social History Tobacco Use Types Packs/Day Years Used Date Smoking Tobacco: Never Assessed Comments Yes Sex and Gender Information Value Date Recorded Sex Assigned at Not on file Legal Sex Female 11:30 PM RADIO [place] Gender Identity Female 11/10/2021 3:09 PM CDT [...] st Contact Info) Description 09/25/2024 11:30 AM RADIO BROADCASTER Appointment [facility] [address] [place] [address] Roberta Alex MD [address] [place] [address] 09/25/2024 11:40 AM RADIO BROADCASTER Office Visit [place] [address] [facility] [place] [address] Roberta Alex MD [address] [place] [address] documented as of this encounter Procedures Procedure [...] (LDH) documented in this encounter Care Teams Wet Chemistry Analyst Relationship Specialty Start Date End Date Alejandro Blevins MD PCP - General FAMILY PRACTICE 12/10/19 documented as of this encounter
--- OUTSIDE RECORDS SUMMARY | 2024-07-11 10:04 | XMS_ITS | Encounter Summary ---
Author Organization [facility] Address [facility] [place] [address] [place] [address] Care Team Providers Care Master Merchandiser Name Role Phone Alejandro Blevins MD Primary Care Provider [phone] Encounter Details Date Type Department Care Team (Latest Contact Info) Description 02/05/2020 11:21 AM CDT - 02/05/2020 11:59 PM CDT Hospital Encounter [address] [place] [address] Roberta Alex MD [address] [place], [place] [id number] Discharge Disposition: Home or Self Care (Routine Discharge) Social History Tobacco Use Types Packs/Day Years Used Date Smoking Tobacco: Every Day Smokeless Tobacco: Never Comments Yes Sex and Gender Information Value Date Recorded Sex Assigned at Not on file Legal Sex Female 11:30 PM RESEARCH STUDY ASSISTANT Gender Identity Female 11/10/2021 3:09 PM [...] st Contact Info) Description 09/25/2024 11:30 AM RESEARCH STUDY ASSISTANT Appointment [facility] [address] [place] [address] Roberta Alex MD [address] [place] [address] 09/25/2024 11:40 AM RESEARCH STUDY ASSISTANT Office Visit [facility] [address] [place] [address] Roberta Alex MD [address] [place] [address] documented as of this encounter Procedures Procedure Name Priority Date/Time Associated Diagnosis Comments IRON SAT PANEL (IRON,IBC,%SAT) Routine 02/05/2020 11:40 AM CDT Thrombocytopenia affecting ([facility] HHS/HCC) CBC W/DIFF AUTOMATED Routine 02/05/2020 11:40 AM CDT Thrombocytopenia affecting ([facility]/HCC HHS/HCC) FERRITIN Routine 02/05/2020 11:40 AM CDT Thrombocytopenia affecting (CMS/HCC HHS/HCC) documented in this encounter Results * (ABNORMAL) FERRITIN (02/05/2020 11:40 AM CDT) FERRITIN 7.8(L) 8 - 252 NG/ML 02/05/2020 12:14 PM CDT [facility] 02/05/2020 11:4 0 AM CDT Roberta Alex MD LABORATORY Final Result Performing Organization Address City/[facility]/ZIP Co de Phone Number [facility] [address] [place] [address], * (ABNORMAL) IRON SATURATION PNL (FE/TIBC/SAT) (02/05/2020 11:40 AM CDT) IRON 29(L) 50 - 170 MCG/DL 02/05/2020 12:18 PM CDT [facility] IRON BINDING CAPACITY 623(H) 250 - 450 MCG/DL 02/05/2020 12:18 PM CDT [facility] IRON SATURATION 5 % 0 12:18 PM CDT [facility] Comment:REFERENCE RANGE NOT ESTABLISHED 02/05/2020 11:4 0 AM CDT Roberta Alex MD LABORATORY Final Result Performing Organization Address [facility]/ZIP Co de Phone Number [facility] [address] [place] [address], * (ABNORMAL) CBC W/DIFF AUTOMATED (02/05/2020 11:40 AM CDT) WBC 11.3(H) 4.5 - 10.8 x10'3/uL 02/05/2020 11:54 AM CDT [facility] RBC 3.88(L) 4.10 - 5.40 x10'6/uL 02/05/2020 11:54 AM CDT [facility] HGB 9.7(L) 12.0 - 16.0 G/DL 02/05/2020 11:54 AM CDT [facility] HCT 31.9(L) 36.0 - 47.0 % 02/05/2020 11:54 AM CDT [facility] MCV 82.2 78.0 - 100.0 FL 02/05/2020 11:54 AM CDT [facility] MCH 25.0(L) 27.0 - 31.0 PG 02/05/2020 11:54 AM CDT [facility] MCHC 30.4(L) 33.0 - 36.0 G/DL 02/05/2020 11:54 AM CDT [facility] RDW 25.1(H) 11.5 - 14.5 % 02/05/2020 11:54 AM CDT [facility] PLT 42(L) 150 - 350 x10'3/uL 02/05/2020 11:54 AM CDT [facility] MPV RESULTS NOT AVAILABLE 7.4 - 10.4 FL 02/05/2020 11:54 AM CDT [facility] DIFFERENTIAL COMMENT NORMAL REFERENCE RANGE NOT ESTABLISHED FOR THE PROPORTIONAL LEUKOCYTE DIFFERENTIAL. 02/05/2020 11:54 AM CDT [facility] SEG NEUTROPHILS 74.2 % 0 12:20 PM CDT [facility] LYMPHOCYTES 15.2 % 02/05/2020 12:20 PM CDT [facility] MONOCYTES 5.6 % 02/05/2020 12:20 PM CDT [facility] EOSINOPHILS 1.9 % 02/05/2020 12:20 PM CDT [facility] BASOPHILS 0.4 % 02/05/2020 12:20 PM CDT [facility] IMMATURE GRANS % 2.7 % 02/05/20 20 12:20 PM CDT [facility] NRBC 0.0 % 02/05/2020 12:20 PM CDT [facility] ABS. NEUTROPHILS 8.38(H) 1.60 - 8.30 x10'3/uL 02/05/2020 12:20 PM CDT [facility] ABS. LYMPHOCYTES 1.72 0.80 - 4.70 x10'3/uL 02/05/2020 12:20 PM CDT [facility] ABS. MONOCYTES 0.63 0.00 - 1.50 x10'3/uL 02/05/2020 12:20 PM CDT [facility] ABS. EOSINOPHILS 0.21 0.00 - 0.40 x10'3/uL 02/05/2020 12:20 PM CDT [facility] ABS. BASOPHILS 0.05 0.00 - 0.20 x10'3/uL 02/05/2020 12:20 PM CDT [facility] ABS. IMMATURE GRANULOCYTES 0.31(H) 0.00 - 0.03 x10'3/uL 02/05/2020 12:20 PM CDT [facility] ABS. NUCLEATED RBC'S 0.00 0.00 x10'3/uL 02/05/2020 12:20 PM CDT [facility] PLT MORPH. DECREASED 02/05/2020 12:20 PM CDT [facility] RBC MORPHOLOGY 2+ 02/05/2020 12:20 PM CDT [facility] Comment:ANISOCYTOSIS 02/05/2020 11:4 0 AM CDT Roberta Alex MD LABORATORY Final Result [facility] [address] [employer] [place] [address], documented in this encounter Visit Diagnoses Diagnosis Thrombocytopenia affecting (CMS/HCC HHS/HCC) documented in this encounter Care Teams Master Merchandiser Relationship Specialty Start Date End Date Alejandro Blevins MD PCP - General FAMILY PRACTICE 12/10/19 documented as of this encounter
--- OUTSIDE RECORDS SUMMARY | 2024-07-11 10:04 | XMS_ITS | Encounter Summary ---
Author Organization [facility] Address [address] [place] [address]. [place] [address] [place] [address] Care Team Providers Care Business Performance Advisor Name Role Phone Alejandro Blevins MD Primary Care Provider [phone] Encounter Details Date Type Department Care Team (Late st Contact Info) Description 10/08/2017 Abstract [facility] [address] [place] [address] , Generic ConversionMD Social History Tobacco Use Types Packs/Day Years Used Date Smoking Tobacco: Never Assessed Comments Unknown Sex and Gender Information Value Date Recorded Sex Assigned at Not on file Legal Sex Female 11:30 PM OVERHAULER Gender Identity Female 11/10/2021 3:09 PM CDT Sexual Orientation Straight 11/10/2021 3: 09 PM CDT documented as of this encounter Plan of Treatment Upcoming Encounters Date Type Department Care Team (Late st Contact Info) Description 09/25/2024 11:30 AM OVERHAULER Appointment [facility] [place] [address] Roberta Alex MD [address] [place] [address] 09/25/2024 11:40 AM OVERHAULER Office Visit [facility] [place] [address] Roberta Alex MD [address] [address] documented as of this encounter Visit Diagnoses Not on filedocumented in this encounter Additional Health Concerns Infection Onset Date Last Indicated Resolved Time COVID-19 Rule Out 07/30/2020 07/30/2020 07/30/2020 4:31 PM OVERHAULER MRSA 06/05/2021 06/05/2021 documented as of this encounter Care Teams Business Performance Advisor Relationship Specialty Start Date End Date Alejandro Blevins MD PCP - General FAMILY PRACTICE 12/10/19 documented as of this encounter
--- OUTSIDE RECORDS SUMMARY | 2024-07-11 10:04 | XMS_ITS | Encounter Summary ---
Author Organization [facility] Address [facility] [place] [address] [place] [address] Care Team Providers Care Material Expeditor Name Role Phone Unavailable Primary Care Provider Unavailabl e Encounter Details Date Type Department Care Team (Late Contact Info) Description 12/14/2011 Abstract [place] [address] [address] Cirilo Schultz MD [address] [place] [phone] Social History Tobacco Use Types Packs/Day Years Used Date Smoking Tobacco: Never Assessed Comments Unknown Sex and Gender Information Value Date Recorded Sex Assigned at Not on file Legal Sex Female 11:30 PM CUSHION INSTALLER Gender Identity Female 11/10/2021 3:09 PM CDT Sexual Orientation Straight 11/10/2021 3: 09 PM CDT documented as of this encounter Plan of Treatment Upcoming Encounters Date Type Department Care Team (Late Contact Info) Description 09/25/2024 11:30 AM CUSHION INSTALLER Appointment [facility] [address] [place] [address] Roberta Alex MD [address] [place] [address] 09/25/2024 11:40 AM CUSHION INSTALLER Office Visit [facility] [address] [place] [address] Roberta Alex MD [address] [place] [address] documented as of this encounter Visit Diagnoses Diagnosis Other and unspecified nonspecific immunological findings documented in this encounter
--- OUTSIDE RECORDS SUMMARY | 2024-07-11 10:04 | XMS_ITS | Encounter Summary ---
Author Organization [facility] Address [address] [place] [address]. [place] [address] [place] [address] Care Team Providers Care Sole Conditioner Name Role Phone Unavailable Primary Care Provider Unavailabl e Encounter Details Date Type Department Care Team (Late st Contact Info) Description 07/21/2009 Abstract [facility] [address] [place] [address] Social History Tobacco Use Types Packs/Day Years Used Date Smoking Tobacco: Never Assessed Comments Unknown Sex and Gender Information Value Date Recorded Sex Assigned at Not on file Legal Sex Female 11:30 PM FINAL INSPECTOR BALANCE WHEEL Gender Identity Female 11/10/2021 3:09 PM CDT Sexual Orientation Straight 11/10/2021 3: 09 PM CDT documented as of this encounter Plan of Treatment Upcoming Encounters Date Type Department Care Team (Late st Contact Info) Description 09/25/2024 11:30 AM FINAL INSPECTOR BALANCE WHEEL Appointment [facility] [address] [place] [address] Roberta Alex MD [address] [place] [address] 09/25/2024 11:40 AM FINAL INSPECTOR BALANCE WHEEL Office Visit [facility] [address] [place] [address] Roberta Alex MD [address] [place] [address] documented as of this encounter Visit Diagnoses Diagnosis Disorder of teeth and supporting structures Unspecified disorder of the teeth and supporting structures documented in this encounter
--- OUTSIDE RECORDS SUMMARY | 2024-07-11 10:04 | XMS_ITS | Encounter Summary ---
Author Organization [facility] Address [address] [place] [address]. [place] [address] [place] [address] Care Team Providers Care Dye Winch Operator Name Role Phone Alejandro Blevins MD Primary Care Provider [phone] Reason for Referral * Imaging (Routine) - Closed Specialty Diagnoses / Procedures Referred By Contac t Referred To Contact RADIOLOGY Diagnoses Hepatitis C virus infection without hepatic coma Thrombocytopenia affecting (CMS/HCC HHS/HCC) Transaminitis Procedures US ABD LIMITED [place] [address] [address] Phone: tel: Referral ID Status Reason Start Date Expiration Date Visits Re quested Visits Authorized [id number] Closed 12/19/2019 01/18/2021 1 1 Encounter Details Date Type Department Care Team (Late st Contact Info) Description 12/19/2019 Orders Only [facility] [place] [id number] Tejinder Garcia, [facility] Social History Tobacco Use Types Packs/Day Years Used Date Smoking Tobacco: Never Assessed Comments Yes Sex and Gender Information Value Date Recorded Sex Assigned at Not on file Legal Sex Female 11:30 PM CONTENT MANAGEMENT SPECIALIST Gender Identity Female 11/10/2021 3:09 PM [...] st Contact Info) Description 09/25/2024 11:30 AM CONTENT MANAGEMENT SPECIALIST Appointment [facility] [place] [address] Roberta Alex MD [address] [place], [place] [address] 09/25/2024 11:40 AM CONTENT MANAGEMENT SPECIALIST Office Visit [facility] [place] [address] Roberta Alex MD [address] [place], [place] [address] documented as of this encounter Results * INTRINSIC FACTOR ANTIBODY (12/28/2019 10:32 AM CDT) INTRINSIC FACTOR BLOCK AB Negative Negative 12/30/2019 6:59 PM CDT [facility]ACE Comment: For additional information, please refer to http://education.Nuventix/faq/IFAB (This link is being provided for informational/ educational purposes only.) Test Performed by Josie Quintana, [facility], [address] [place] [address] Hank Landin M.D., Ph.D., Director of Laboratories , [place] [id number] 12/28/2019 10:3 2 AM CDT us Roberta Alex MD LABORATORY Final Result [facility] [place] [address] [place] [address], * US ABD LIMITED (12/26/2019 8:46 AM [...] (LDH) documented in this encounter Care Teams Dye Winch Operator Relationship Specialty Start Date End Date Alejandro Blevins MD PCP - General FAMILY PRACTICE 12/10/19 documented as of this encounter
--- OUTSIDE RECORDS SUMMARY | 2024-07-11 10:04 | XMS_ITS | Encounter Summary ---
Author Organization [facility] Address [facility] [place] [address] [place] [address] Care Team Providers Care Technical Publications Manager Name Role Phone Unavailable Primary Care Provider Unavailabl e Encounter Details Date Type Department Care Team (Late Contact Info) Description 02/16/2011 Abstract [facility] [place] [address] Cirilo Schultz MD [address] [place] [phone] Social History Tobacco Use Types Packs/Day Years Used Date Smoking Tobacco: Never Assessed Comments Unknown Sex and Gender Information Value Date Recorded Sex Assigned at Not on file Legal Sex Female 11:30 PM OIL PIPE INSPECTOR Gender Identity Female 11/10/2021 3:09 PM CDT Sexual Orientation Straight 11/10/2021 3: 09 PM CDT documented as of this encounter Plan of Treatment Upcoming Encounters Date Type Department Care Team (Late Contact Info) Description 09/25/2024 11:30 AM OIL PIPE INSPECTOR Appointment [facility] [address] [place] [address] Roberta Alex MD [address] [place] [address] 09/25/2024 11:40 AM OIL PIPE INSPECTOR Office Visit [facility] [address] [place] [address] Roberta Alex MD [address] [place] [address] documented as of this encounter Visit Diagnoses Diagnosis Hyperpotassemia documented in this encounter
--- OUTSIDE RECORDS SUMMARY | 2024-07-11 10:04 | XMS_ITS | Encounter Summary ---
Author Organization [facility] Address [address] [place] [address]. [place] [address] [place] [address] Care Team Providers Care Cookie Padder Name Role Phone Unavailable Primary Care Provider Unavailabl e Encounter Details Date Type Department Care Team (Late st Contact Info) Description 10/14/2008 Abstract [facility] [address] [place] [address] Social History Tobacco Use Types Packs/Day Years Used Date Smoking Tobacco: Never Assessed Comments Unknown Sex and Gender Information Value Date Recorded Sex Assigned at Not on file Legal Sex Female 11:30 PM SEMI TRUCK DRIVER Gender Identity Female 11/10/2021 3:09 PM CDT Sexual Orientation Straight 11/10/2021 3: 09 PM CDT documented as of this encounter Plan of Treatment Upcoming Encounters Date Type Department Care Team (Late st Contact Info) Description 09/25/2024 11:30 AM SEMI TRUCK DRIVER Appointment [facility] [address] [place] [address] Roberta Alex MD [address] [place] [address] 09/25/2024 11:40 AM SEMI TRUCK DRIVER Office Visit [facility] [address] [place] [address] Roberta Alex MD [address] [place] [address] documented as of this encounter Visit Diagnoses Diagnosis Contusion of hand Contusion of hand(s) documented in this encounter
--- OUTSIDE RECORDS SUMMARY | 2024-07-11 10:04 | XMS_ITS | Encounter Summary ---
Author Organization [facility] Address [facility] [place] [address] [place] [address] Care Team Providers Care Pull Worker Name Role Phone Unavailable Primary Care Provider Unavailabl e Encounter Details Date Type Department Care Team (Late Contact Info) Description 12/15/2011 Abstract [place] [address] [address] Cirilo Schultz MD [address] [place] [phone] Social History Tobacco Use Types Packs/Day Years Used Date Smoking Tobacco: Never Assessed Comments Unknown Sex and Gender Information Value Date Recorded Sex Assigned at Not on file Legal Sex Female 11:30 PM PODIATRIC AIDE Gender Identity Female 11/10/2021 3:09 PM CDT Sexual Orientation Straight 11/10/2021 3: 09 PM CDT documented as of this encounter Plan of Treatment Upcoming Encounters Date Type Department Care Team (Late Contact Info) Description 09/25/2024 11:30 AM PODIATRIC AIDE Appointment [facility] [address] [place] [address] Roberta Alex MD [address] [place] [address] 09/25/2024 11:40 AM PODIATRIC AIDE Office Visit [facility] [address] [place] [address] Roberta Alex MD [address] [place] [address] documented as of this encounter Visit Diagnoses Diagnosis Other specified circulatory system disorders documented in this encounter
--- OUTSIDE RECORDS SUMMARY | 2024-07-11 10:04 | XMS_ITS | Encounter Summary ---
Author Organization [facility] Address [facility]6 [place] [address] [place] [address] Care Team Providers Care Senior Technical Recruiter Name Role Phone Unavailable Primary Care Provider Unavailabl e Encounter Details Date Type Department Care Team (Late Contact Info) Description 05/22/2010 Abstract [facility] [place] [address] Kamron Yadav MD [address] [place] [address] Social History Tobacco Use Types Packs/Day Years Used Date Smoking Tobacco: Never Assessed Comments Unknown Sex and Gender Information Value Date Recorded Sex Assigned at Not on file Legal Sex Female 11:30 PM CONVERTER SUPERVISOR Gender Identity Female 11/10/2021 3:09 PM CDT Sexual Orientation Straight 11/10/2021 3: 09 PM CDT documented as of this encounter Plan of Treatment Upcoming Encounters Date Type Department Care Team (Late Contact Info) Description 09/25/2024 11:30 AM CONVERTER SUPERVISOR Appointment [facility] [address] [place] [address] Roberta Alex MD [address] [place] [address] 09/25/2024 11:40 AM CONVERTER SUPERVISOR Office [facility] [facility] [place] [address] Roberta Alex MD [address] [place] [address] documented as of this encounter Visit Diagnoses Diagnosis Headache documented in this encounter
--- OUTSIDE RECORDS SUMMARY | 2024-07-11 10:04 | XMS_ITS | Encounter Summary ---
Author Organization [facility] Address [facility] [place] [address] [place] [address] Care Team Providers Care Solar Field Service Technician Name Role Phone Unavailable Primary Care Provider Unavailabl e Encounter Details Date Type Department Care Team (Late Contact Info) Description 03/18/2009 Abstract [facility] [address] [place] [address] Cirilo Schultz MD [address] [place] [phone] Social History Tobacco Use Types Packs/Day Years Used Date Smoking Tobacco: Never Assessed Comments Unknown Sex and Gender Information Value Date Recorded Sex Assigned at Not on file Legal Sex Female 11:30 PM REPORTS DEVELOPER Gender Identity Female 11/10/2021 3:09 PM CDT Sexual Orientation Straight 11/10/2021 3: 09 PM CDT documented as of this encounter Plan of Treatment Upcoming Encounters Date Type Department Care Team (Late Contact Info) Description 09/25/2024 11:30 AM REPORTS DEVELOPER Appointment [facility] [address] [place] [address] Roberta Alex MD [address] [place] [address] 09/25/2024 11:40 AM REPORTS DEVELOPER Office Visit [facility] [address] [place] [address] Roberta Alex MD [address] [place] [address] documented as of this encounter Visit Diagnoses Diagnosis Pain in joint, lower leg documented in this encounter
--- OUTSIDE RECORDS SUMMARY | 2024-07-11 10:04 | XMS_ITS | Encounter Summary ---
Author Organization [facility] Address [address] [place] [address]. [place] [address] [place] [address] Care Team Providers Care Sheet Metal Production Worker Name Role Phone Alejandro Blevins MD Primary Care Provider [phone] Reason for Visit * Reason Comments Injection Infusion Therapy * Treatment/Therapy Plan Authorization (Routine) - Closed Specialty Diagnoses / Procedures Referred By Contac t Referred To Contact Diagnoses Iron deficiency anemia secondary to inadequate dietary iron intake Procedures IRON SUCROSE INJ, 20 MG Roberta Alex MD [address] [place] [address] Phone: tel: fax: [facility] [place] [address] Phone: tel: Referral ID Status Reason Start Date Expiration Date Visits Re quested Visits Authorized [id number] Closed 12/19/2019 04/23/2020 1 3 Encounter Details Date Type Department Care Team (Latest Contact Info) Description 01/03/2020 10:00 AM CDT - 01/03/2020 11:59 PM CDT Hospital Encounter [facility] [place] [address] Roberta Alex MD [address] [place] [address] Injection; Infusion Therapy Discharge Disposition: Home or Self Care (Routine Discharge) Social History Tobacco Use Types Packs/Day Years Used Date Smoking Tobacco: Every Day Smokeless Tobacco: Never Tobacco Cessation:Ready to Q uit: No Comments Yes Sex and Gender Information Value Date Recorded Sex Assigned at Not on file Legal Sex Female 11:30 PM CUSTOMER RELATIONS ASSISTANT Gender Identity Female 11/10/2021 3:09 PM [...] Contact Info) Description 09/25/2024 11:30 AM CUSTOMER RELATIONS ASSISTANT Appointment [facility] [address] [place] [address] Roberta Alex MD [address] [place] [address] 09/25/2024 11:40 AM CUSTOMER RELATIONS ASSISTANT Office Visit [facility] [address] [facility] [place] [address] Roberta Alex MD [address] [place] [address] documented as of this encounter Visit Diagnoses [...] mL/hr documented in this encounter Care Teams Sheet Metal Production Worker Relationship Specialty Start Date End Date Alejandro Blevins MD PCP - General FAMILY PRACTICE 12/10/19 documented as of this encounter
--- OUTSIDE RECORDS SUMMARY | 2024-07-11 10:04 | XMS_ITS | Encounter Summary ---
Author Organization [facility] Address [facility] [place] [address] [place] [address] Care Team Providers Care Manufacturing Mechanic Name Role Phone Unavailable Primary Care Provider Unavailabl e Encounter Details Date Type Department Care Team (Late Contact Info) Description 06/15/2013 Abstract [facility] [place] [address] Cirilo Schultz MD [address] [place] [phone] Social History Tobacco Use Types Packs/Day Years Used Date Smoking Tobacco: Never Assessed Comments Unknown Sex and Gender Information Value Date Recorded Sex Assigned at Not on file Legal Sex Female 11:30 PM CAR STEREO INSTALLER Gender Identity Female 11/10/2021 3:09 PM CDT Sexual Orientation Straight 11/10/2021 3: 09 PM CDT documented as of this encounter Plan of Treatment Upcoming Encounters Date Type Department Care Team (Late Contact Info) Description 09/25/2024 11:30 AM CAR STEREO INSTALLER Appointment [facility] [address] [place] [address] Roberta Alex MD [address] [place] [address] 09/25/2024 11:40 AM CAR STEREO INSTALLER Office Visit [facility] [address] [place] [address] Roberta Alex MD [address] [place] [address] documented as of this encounter Visit Diagnoses Diagnosis Thrombocytopenia (CMS/HCC) Thrombocytopenia, unspecified documented in this encounter
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
--- OUTSIDE RECORDS SUMMARY | 2024-07-11 10:04 | XMS_ITS | Encounter Summary ---
Author Organization [facility] Address [address] [place] [address]. [place] [address] [place] [address] Care Team Providers Care Turnaround Engineer Name Role Phone Alejandro Blevins MD Primary Care Provider [phone] Encounter Details Date Type Department Care Team (Latest Contact Info) Description 12/18/2019 Travel Social History Tobacco Use Types Packs/Day Years Used Date Smoking Tobacco: Never Assessed Comments Yes Sex and Gender Information Value Date Recorded Sex Assigned at Not on file Legal Sex Female 11:30 PM COMMODITIES REQUIREMENTS ANALYST Gender Identity Female 11/10/2021 3:09 PM [...] st Contact Info) Description 09/25/2024 11:30 AM COMMODITIES REQUIREMENTS ANALYST Appointment [facility] [address] [place] [address] Roberta Alex MD [address] [place] [address] 09/25/2024 11:40 AM COMMODITIES REQUIREMENTS ANALYST Office Visit [facility] [address] [place] [address] Roberta Alex MD [address] [place] [address] documented as of this encounter Visit Diagnoses Not on filedocumented in this encounter Care Teams Turnaround Engineer Relationship Specialty Start Date End Date Alejandro Blevins MD PCP - General FAMILY PRACTICE 12/10/19 documented as of this encounter
--- OUTSIDE RECORDS SUMMARY | 2024-07-11 10:04 | XMS_ITS | Encounter Summary ---
Author Organization [facility] Address [address] [facility] [place] [address] [place] [address] Care Team Providers Care Tricot Knitting Machine Operator Name Role Phone Unavailable Primary Care Provider Unavailabl e Encounter Details Date Type Department Care Team (Late Contact Info) Description 03/28/2009 Abstract [facility] [address] [place] [address] Conner Gallegos MD [address] [place] [phone] Social History Tobacco Use Types Packs/Day Years Used Date Smoking Tobacco: Never Assessed Comments Unknown Sex and Gender Information Value Date Recorded Sex Assigned at Not on file Legal Sex Female 11:30 PM AND TAXI INSTRUCTOR BUS TROLLEY Gender Identity Female 11/10/2021 3:09 PM CDT Sexual Orientation Straight 11/10/2021 3: 09 PM CDT documented as of this encounter Plan of Treatment Upcoming Encounters Date Type Department Care Team (Late Contact Info) Description 09/25/2024 11:30 AM AND TAXI INSTRUCTOR BUS TROLLEY Appointment [facility] [address] [address] Roberta Alex MD [address] [place] [address] 09/25/2024 11:40 AM AND TAXI INSTRUCTOR BUS TROLLEY Office Visit [facility] [address] [place] [address] Roberta Alex MD [address] [place] [address] documented as of this encounter Visit Diagnoses Diagnosis Pain in joint, lower leg documented in this encounter
--- OUTSIDE RECORDS SUMMARY | 2024-07-11 10:04 | XMS_ITS | Encounter Summary ---
Author Organization [facility] Address [facility] [place] [address] [place] [address] Care Team Providers Care Agriculture Research Director Name Role Phone Unavailable Primary Care Provider Unavailabl e Encounter Details Date Type Department Care Team (Late Contact Info) Description 09/16/2014 Abstract [facility] [address] [place] [address] Dick Bonilla MD [address] [place], [place] [address] Social History Tobacco Use Types Packs/Day Years Used Date Smoking Tobacco: Never Assessed Comments Unknown Sex and Gender Information Value Date Recorded Sex Assigned at Not on file Legal Sex Female 11:30 PM NUTRITION AND DIETETICS INSTRUCTOR Gender Identity Female 11/10/2021 3:09 PM CDT Sexual Orientation Straight 11/10/2021 3: 09 PM CDT documented as of this encounter Plan of Treatment Upcoming Encounters Date Type Department Care Team (Late Contact Info) Description 09/25/2024 11:30 AM NUTRITION AND DIETETICS INSTRUCTOR Appointment [facility] [address] [place] [address] Roberta Alex MD [address] [place] [address] 09/25/2024 11:40 AM NUTRITION AND DIETETICS INSTRUCTOR Office Visit [facility] [address] [place] [address] Roberta Alex MD [address] [place] [address] documented as of this encounter Visit Diagnoses Diagnosis Calculus of kidney documented in this encounter
--- OUTSIDE RECORDS SUMMARY | 2024-07-11 10:04 | XMS_ITS | Encounter Summary ---
Author Organization [facility] Address [address] [place] [address]. [place] [address] [place] [address] Care Team Providers Care Mark Up Designer Name Role Phone Alejandro Blevins MD Primary Care Provider [phone] Encounter Details Date Type Department Care Team (Latest Contact Info) Description 12/18/2019 1:51 PM CDT - 12/18/2019 11:59 PM CDT Hospital Encounter [address] [place] [address] Roberta Alex MD [address] [place] [address] Discharge Disposition: Home or Self Care (Routine Discharge) Social History Tobacco Use Types Packs/Day Years Used Date Smoking Tobacco: Never Assessed Comments Yes Sex and Gender Information Value Date Recorded Sex Assigned at Not on file Legal Sex Female 11:30 PM BOX MAKER WOOD Gender Identity Female 11/10/2021 3:09 PM CDT [...] Contact Info) Description 09/25/2024 11:30 AM BOX MAKER WOOD Appointment [facility] [address] [place] [address] Roberta Alex MD [address] [place] [address] 09/25/2024 11:40 AM BOX MAKER WOOD Office Visit [facility] [address] [place] [address] Roberta Alex MD [address] [place], [place] [address] documented as of this encounter Procedures Procedure [...] - 986 PG/ML 12/19/2019 4:18 PM CDT [facility] 12/18/2019 2:06 PM CDT Roberta Alex MD LABORATORY Final Result [facility] [address] [place] [address], [phone] * FERRITIN (12/18/2019 2:06 PM CDT) FERRITIN 51.6 8 - 252 NG/ML 12/18/2019 2:47 PM CDT [facility] 12/18/2019 2:06 PM CDT Roberta Alex MD LABORATORY Final Result [facility] [address] [place] [address], * (ABNORMAL) CBC W/DIFF AUTOMATED (12/18/2019 2:06 PM CDT) Pathologist [facility] WBC 13.0(H) 4.5 - 10.8 x10'3/uL 12/18/2019 2:33 PM CDT [facility] RBC 4.26 4.10 - 5.40 x10'6/uL 12/18/2019 2:33 PM CDT [facility] HGB 9.1(L) 12.0 - 16.0 G/DL 12/18/2019 2:33 PM CDT [facility] HCT 30.7(L) 36.0 - 47.0 % 12/18/2019 2:33 PM CDT [facility] MCV 72.1(L) 78.0 - 100.0 FL 12/18/2019 2:33 PM CDT [facility] MCH 21.4(L) 27.0 - 31.0 PG 12/18/2019 2:33 PM CDT [facility] MCHC 29.6(L) 33.0 - 36.0 G/DL 12/18/2019 2:33 PM CDT [facility] RDW 29.3(H) 11.5 - 14.5 % 12/18/2019 2:33 PM CDT [facility] PLT 51(L) 150 - 350 x10'3/uL 12/18/2019 2:33 PM CDT [facility] MPV RESULTS NOT AVAILABLE 7.4 - 10.4 FL 12/18/2019 2:33 PM CDT [facility] DIFFERENTIAL COMMENT NORMAL REFERENCE RANGE NOT ESTABLISHED FOR THE PROPORTIONAL LEUKOCYTE DIFFERENTIAL. 12/18/2019 2:33 PM CDT [facility] SEG NEUTROPHILS 77.1 % 0 2:37 PM CDT [facility] LYMPHOCYTES 14.5 % 12/18/2019 2:37 PM CDT [facility] MONOCYTES 4.4 % 12/18/2019 2:37 PM CDT [facility] EOSINOPHILS 2.4 % 12/18/2019 2:37 PM CDT [facility] BASOPHILS 0.4 % 12/18/2019 2:37 PM CDT [facility] IMMATURE GRANS % 1.2 % 12/18/19 20 2:37 PM CDT [facility] NRBC 0.0 % 12/18/2019 2:37 PM CDT [facility] ABS. NEUTROPHILS 10.02(H) 1.60 - 8.30 x10'3/uL 12/18/2019 2:37 PM CDT [facility] ABS. LYMPHOCYTES 1.89 0.80 - 4.70 x10'3/uL 12/18/2019 2:37 PM CDT [facility] ABS. MONOCYTES 0.57 0.00 - 1.50 x10'3/uL 12/18/2019 2:37 PM CDT [facility] ABS. EOSINOPHILS 0.31 0.00 - 0.40 x10'3/uL 12/18/2019 2:37 PM CDT [facility] ABS. BASOPHILS 0.05 0.00 - 0.20 x10'3/uL 12/18/2019 2:37 PM CDT [facility] ABS. IMMATURE GRANULOCYTES 0.16(H) 0.00 - 0.03 x10'3/uL 12/18/2019 2:37 PM CDT [facility] ABS. NUCLEATED RBC'S 0.00 0.00 x10'3/uL 12/18/2019 2:37 PM CDT [facility] PLT MORPH. DECREASED 12/18/2019 2:37 PM CDT [facility] RBC MORPHOLOGY 2+ 12/18/2019 2:37 PM CDT [facility] Comment: MICROCYTES 1+ MACROCYTES 1+ HYPOCHROMASIA 1+ POIKILOCYTOSIS 3+ ANISOCYTOSIS 12/18/2019 2:06 PM CDT Roberta Alex MD LABORATORY Final Result [facility] [address] [place] [address], documented in this encounter Visit Diagnoses Diagnosis Anemia, unspecified type documented in this encounter Care Teams Mark Up Designer Relationship Specialty Start Date End Date Alejandro Blevins MD PCP - General FAMILY PRACTICE 12/10/19 documented as of this encounter
--- OUTSIDE RECORDS SUMMARY | 2024-07-11 10:04 | XMS_ITS | Encounter Summary ---
Author Organization [facility] Address [facility] [place] [place] [address] [place] [address] Care Team Providers Care Set Up And Lay Out Inspector Name Role Phone Unavailable Primary Care Provider Unavailabl e Encounter Details Date Type Department Care Team (Late Contact Info) Description 10/28/2012 Abstract [facility] [place] [address] Kamron Yadav MD [address] [place] [address] Social History Tobacco Use Types Packs/Day Years Used Date Smoking Tobacco: Never Assessed Comments Unknown Sex and Gender Information Value Date Recorded Sex Assigned at Not on file Legal Sex Female 11:30 PM MILIEU TECHNICIAN Gender Identity Female 11/10/2021 3:09 PM CDT Sexual Orientation Straight 11/10/2021 3: 09 PM CDT documented as of this encounter Plan of Treatment Upcoming Encounters Date Type Department Care Team (Late Contact Info) Description 09/25/2024 11:30 AM MILIEU TECHNICIAN Appointment [facility] [address] [place] [address] Roberta Alex MD [address] [place] [address] 09/25/2024 11:40 AM MILIEU TECHNICIAN Office Visit [facility] [place] [address] Roberta Alex MD [address] [place] [address] documented as of this encounter Visit Diagnoses Diagnosis Disorder of teeth and supporting structures Unspecified disorder of the teeth and supporting structures documented in this encounter
--- OUTSIDE RECORDS SUMMARY | 2024-07-11 10:04 | XMS_ITS | Encounter Summary ---
Author Organization [facility] Address [address] [facility] [place] [address] [place] [address] Care Team Providers Care Almond Paste Molder Name Role Phone Unavailable Primary Care Provider Unavailabl e Encounter Details Date Type Department Care Team (Late Contact Info) Description 03/08/2009 Abstract [facility] [address] [place] [address] Conner Gallegos MD [address] [place] [phone] Social History Tobacco Use Types Packs/Day Years Used Date Smoking Tobacco: Never Assessed Comments Unknown Sex and Gender Information Value Date Recorded Sex Assigned at Not on file Legal Sex Female 11:30 PM AIRCRAFT INSTRUMENT TESTER Gender Identity Female 11/10/2021 3:09 PM CDT Sexual Orientation Straight 11/10/2021 3: 09 PM CDT documented as of this encounter Plan of Treatment Upcoming Encounters Date Type Department Care Team (Late Contact Info) Description 09/25/2024 11:30 AM AIRCRAFT INSTRUMENT TESTER Appointment [facility] [address] [place] [address] Roberta Alex MD [address] [place] [address] 09/25/2024 11:40 AM AIRCRAFT INSTRUMENT TESTER Office Visit [facility] [address] [place] [address] Roberta Alex MD [address] [place] [address] documented as of this encounter Visit Diagnoses Diagnosis Pain in joint, lower leg documented in this encounter
--- OUTSIDE RECORDS SUMMARY | 2024-07-11 10:04 | XMS_ITS | Encounter Summary ---
Author Organization [facility] Address [facility] [place] [address] [place] [address] Care Team Providers Care Field Education Director Name Role Phone Unavailable Primary Care Provider Unavailabl e Encounter Details Date Type Department Care Team (Late Contact Info) Description 03/26/2009 Abstract [facility] [address] [place] [address] Joseph Iqbal MD [address] [place] [address] Social History Tobacco Use Types Packs/Day Years Used Date Smoking Tobacco: Never Assessed Comments Unknown Sex and Gender Information Value Date Recorded Sex Assigned at Not on file Legal Sex Female 11:30 PM GRAVITY PROSPECTING OPERATOR HELPER Gender Identity Female 11/10/2021 3:09 PM CDT Sexual Orientation Straight 11/10/2021 3: 09 PM CDT documented as of this encounter Plan of Treatment Upcoming Encounters Date Type Department Care Team (Late Contact Info) Description 09/25/2024 11:30 AM GRAVITY PROSPECTING OPERATOR HELPER Appointment [facility] [address] [place] [address] Roberta Alex MD [address] [place] [address] 09/25/2024 11:40 AM GRAVITY PROSPECTING OPERATOR HELPER Office Visit [facility] [address] [place] [address] Roberta Alex MD [address] [place] [address] documented as of this encounter Visit Diagnoses Diagnosis Derangement of lateral meniscus Derangement of lateral meniscus, unspecified documented in this encounter
--- OUTSIDE RECORDS SUMMARY | 2024-07-11 10:04 | XMS_ITS | Encounter Summary ---
Author Organization [facility] Address [address] [place] [address]. [place] [address] [place] [address] Care Team Providers Care Heavy Equipment Operator Apprentice Name Role Phone Alejandro Blevins MD Primary Care Provider [phone] Encounter Details Date Type Department Care Team (Late Contact Info) Description 12/18/2019 Orders Only [facility] [address] [place] [address] Roberta Alex MD [address] [place] [address] Social History Tobacco Use Types Packs/Day Years Used Date Smoking Tobacco: Never Assessed Comments Yes Sex and Gender Information Value Date Recorded Sex Assigned at Not on file Legal Sex Female 11:30 PM DIRECTOR RECREATION CENTER Gender Identity Female 11/10/2021 3:09 PM CDT [...] (Late Contact Info) Description 09/25/2024 11:30 AM DIRECTOR RECREATION CENTER Appointment [facility] [address] [place] [address] Roberta Alex MD [address] [place], [place] [phone] 09/25/2024 11:40 AM DIRECTOR RECREATION CENTER Office Visit [facility] [place] [address] Roberta Alex MD [address] [place] [address] documented as of this encounter Results * VITAMIN B-12 (12/18/2019 2:06 PM CDT) VITAMIN B12 S/P/B 318 193 - 986 PG/ML 12/19/2019 4:18 PM CDT [facility] 12/18/2019 2:06 PM CDT Roberta Alex MD LABORATORY Final Result [facility] [address] [place] [address], [phone] * FERRITIN (12/18/2019 2:06 PM CDT) FERRITIN 51.6 8 - 252 NG/ML 12/18/2019 2:47 PM CDT [facility] 12/18/2019 2:06 PM CDT Roberta Alex MD LABORATORY Final Result [facility] [address] [place] [address], * (ABNORMAL) CBC W/DIFF AUTOMATED (12/18/2019 2:06 PM CDT) WBC 13.0(H) 4.5 - 10.8 x10'3/uL 12/18/2019 2:33 PM CDT [facility] RBC 4.26 4.10 - 5.40 x10'6/uL 12/18/2019 2:33 PM CDT [facility] HGB 9.1(L) 12.0 - 16.0 G/DL 12/18/2019 2:33 PM CDT [facility] HCT 30.7(L) 36.0 - 47.0 % 12/18/2019 2:33 PM CDT [facility] MCV 72.1(L) 78.0 - 100.0 FL 12/18/2019 2:33 PM CDT [facility] MCH 21.4(L) 27.0 - 31.0 PG 12/18/2019 2:33 PM CDT [facility] MCHC 29.6(L) 33.0 - 36.0 G/DL 12/18/2019 2:33 PM CDT [facility] RDW 29.3(H) 11.5 - 14.5 % 12/18/2019 2:33 PM CDT [facility] PLT 51(L) 150 - 350 x10'3/uL 12/18/2019 2:33 PM CDT [facility] MPV RESULTS NOT AVAILABLE 7.4 - 10.4 FL 12/18/2019 2:33 PM CDT [facility] DIFFERENTIAL COMMENT NORMAL REFERENCE RANGE NOT ESTABLISHED FOR THE PROPORTIONAL LEUKOCYTE DIFFERENTIAL. 12/18/2019 2:33 PM CDT [facility] SEG NEUTROPHILS 77.1 % 0 2:37 PM CDT [facility] LYMPHOCYTES 14.5 % 12/18/2019 2:37 PM CDT [facility] MONOCYTES 4.4 % 12/18/2019 2:37 PM CDT [facility] EOSINOPHILS 2.4 % 12/18/2019 2:37 PM CDT [facility] BASOPHILS 0.4 % 12/18/2019 2:37 PM CDT [facility] IMMATURE GRANS % 1.2 % 12/18/19 20 2:37 PM CDT [facility] NRBC 0.0 % 12/18/2019 2:37 PM CDT [facility] ABS. NEUTROPHILS 10.02(H) 1.60 - 8.30 x10'3/uL 12/18/2019 2:37 PM CDT [facility] ABS. LYMPHOCYTES 1.89 0.80 - 4.70 x10'3/uL 12/18/2019 2:37 PM CDT [facility] ABS. MONOCYTES 0.57 0.00 - 1.50 x10'3/uL 12/18/2019 2:37 PM CDT [facility] ABS. EOSINOPHILS 0.31 0.00 - 0.40 x10'3/uL 12/18/2019 2:37 PM CDT [facility] ABS. BASOPHILS 0.05 0.00 - 0.20 x10'3/uL 12/18/2019 2:37 PM CDT [facility] ABS. IMMATURE GRANULOCYTES 0.16(H) 0.00 - 0.03 x10'3/uL 12/18/2019 2:37 PM CDT [facility] ABS. NUCLEATED RBC'S 0.00 0.00 x10'3/uL 12/18/2019 2:37 PM CDT [facility] PLT MORPH. DECREASED 12/18/2019 2:37 PM CDT [facility] RBC MORPHOLOGY 2+ 12/18/2019 2:37 PM CDT [facility] Comment: MICROCYTES 1+ MACROCYTES 1+ HYPOCHROMASIA 1+ POIKILOCYTOSIS 3+ ANISOCYTOSIS 12/18/2019 2:06 PM CDT Roberta Alex MD LABORATORY Final Result [facility] [address] [place] [address], documented in this encounter Visit Diagnoses Diagnosis Anemia, unspecified type- Primary documented in this encounter Care Teams Heavy Equipment Operator Apprentice Relationship Specialty Start Date End Date Alejandro Blevins MD PCP - General FAMILY PRACTICE 12/10/19 documented as of this encounter
--- OUTSIDE RECORDS SUMMARY | 2024-07-11 10:04 | XMS_ITS | Encounter Summary ---
Author Organization [facility] Address [address] [place] [address]. [place] [address] [place] [address] Care Team Providers Care Jogger Operator Name Role Phone Alejandro Blevins MD Primary Care Provider [phone] Reason for Visit * Treatment/Therapy Plan Authorization (Routine) - Closed Specialty Diagnoses / Procedures Referred By Contac t Referred To Contact Diagnoses Iron deficiency anemia secondary to inadequate dietary iron intake Procedures IRON SUCROSE INJ, 20 MG Roberta Alex MD [address] [place] [address] Phone: tel: fax: [facility] [place] [address] Phone: tel: Referral ID Status Reason Start Date Expiration Date Visits Re quested Visits Authorized [id number] Closed 12/19/2019 04/23/2020 1 3 Encounter Details Date Type Department Care Team (Late st Contact Info) Description 01/10/2020 10:00 AM CDT - 01/10/2020 11:59 PM CDT Hospital Encounter [facility] [place] [address] Alejandro Blevins MD [address] [place] [address] Discharge Disposition: Home or Self Care (Routine Discharge) Social History Tobacco Use Types Packs/Day Years Used Date Smoking Tobacco: Every Day Smokeless Tobacco: Never Comments Yes Sex and Gender Information Value Date Recorded Sex Assigned at Not on file Legal Sex Female 11:30 PM COOK SAUCE Gender Identity Female 11/10/2021 3:09 PM CDT [...] st Contact Info) Description 09/25/2024 11:30 AM COOK SAUCE Appointment [facility] [address] [place] [address] Roberta Alex MD [address] [place] [address] 09/25/2024 11:40 AM COOK SAUCE Office Visit [facility] [place] [place] [address] Roberta Alex MD [address] [place] [address] documented as of this encounter Visit Diagnoses [...] mL/hr documented in this encounter Care Teams Jogger Operator Relationship Specialty Start Date End Date Alejandro Blevins MD PCP - General FAMILY PRACTICE 12/10/19 documented as of this encounter
--- OUTSIDE RECORDS SUMMARY | 2024-07-11 10:04 | XMS_ITS | Encounter Summary ---
Author Organization [facility] Address [address] [place] [address]. [place] [address] [place] [address] Care Team Providers Care Visual Journalist Name Role Phone Alejandro Blevins MD Primary Care Provider Encounter Details Date Type Department Care Team (Latest Contact Info) Description 01/10/2020 Travel Social History Tobacco Use Types Packs/Day Years Used Date Smoking Tobacco: Every Day Smokeless Tobacco: Never Comments Yes Sex and Gender Information Value Date Recorded Sex Assigned at Not on file Legal Sex Female 11:30 PM SECURITIES COUNSELOR Gender Identity Female 11/10/2021 3:09 PM [...] st Contact Info) Description 09/25/2024 11:30 AM SECURITIES COUNSELOR Appointment [facility] [address] [place] [address] Roberta Alex MD [address] [place] [address] 09/25/2024 11:40 AM SECURITIES COUNSELOR Office Visit [facility] [address] [place] [address] Roberta Alex MD [address] [place] [address] documented as of this encounter Visit Diagnoses Not on filedocumented in this encounter Care Teams Visual Journalist Relationship Specialty Start Date End Date Alejandro Blevins MD PCP - General FAMILY PRACTICE 12/10/19 documented as of this encounter
--- OUTSIDE RECORDS SUMMARY | 2024-07-11 10:04 | XMS_ITS | Encounter Summary ---
Author Organization [facility] Address [address] [place] [address]. [place] [address] [place] [address] Care Team Providers Care Digital Learning Platforms Manager Name Role Phone Alejandro Blevins MD Primary Care Provider [phone] Reason for Visit * Reason Comments Infusion Therapy * Treatment/Therapy Plan Authorization (Routine) - Closed Specialty Diagnoses / Procedures Referred By Contac t Referred To Contact Diagnoses Iron deficiency anemia secondary to inadequate dietary iron intake Procedures IRON SUCROSE INJ, 20 MG Roberta Alex MD [address] [place] [address] Phone: tel: fax: [facility] [place] [address] Phone: tel: Referral ID Status Reason Start Date Expiration Date Visits Re quested Visits Authorized [id number] Closed 12/19/2019 04/23/2020 1 3 Encounter Details Date Type Department Care Team (Latest Contact Info) Description 12/28/2019 10:00 AM CDT - 12/28/2019 10:16 AM CDT Hospital Encounter [facility] [place] [address] Roberta Alex MD [address] [place] [address] Infusion Therapy Discharge Disposition: Home or Self Care (Routine Discharge) Social History Tobacco Use Types Packs/Day Years Used Date Smoking Tobacco: Never Assessed Comments Yes Sex and Gender Information Value Date Recorded Sex Assigned at Not on file Legal Sex Female 11:30 PM CHEMICAL LABORATORY ASSISTANT Gender Identity Female 11/10/2021 3:09 PM [...] st Contact Info) Description 09/25/2024 11:30 AM CHEMICAL LABORATORY ASSISTANT Appointment [facility] [address] [place] [address] Roberta Alex MD [address] [place] [address] 09/25/2024 11:40 AM CHEMICAL LABORATORY ASSISTANT Office Visit [facility] [address] [place] [address] Roberta Alex MD [address] [place] [address] documented as of this encounter Visit Diagnoses [...] mL/hr documented in this encounter Care Teams Digital Learning Platforms Manager Relationship Specialty Start Date End Date Alejandro Blevins MD PCP - General FAMILY PRACTICE 12/10/19 documented as of this encounter
--- OUTSIDE RECORDS SUMMARY | 2024-07-11 10:05 | XMS_ITS | Encounter Summary ---
Author Organization [facility] Address [facility] [place] [address] [place] [address] Care Team Providers Care Ham Pumper Name Role Phone Unavailable Primary Care Provider Unavailabl e Encounter Details Date Type Department Care Team (Late Contact Info) Description 10/05/2007 Abstract [facility] [address] [place] [address] Cirilo Schultz MD [address] [place] [phone] Social History Tobacco Use Types Packs/Day Years Used Date Smoking Tobacco: Never Assessed Comments Unknown Sex and Gender Information Value Date Recorded Sex Assigned at Not on file Legal Sex Female 11:30 PM BRAZER HELPER INDUCTION Gender Identity Female 11/10/2021 3:09 PM CDT Sexual Orientation Straight 11/10/2021 3: 09 PM CDT documented as of this encounter Plan of Treatment Upcoming Encounters Date Type Department Care Team (Late Contact Info) Description 09/25/2024 11:30 AM BRAZER HELPER INDUCTION Appointment [facility] [address] [place] [address] Roberta Alex MD [address] [place] [address] 09/25/2024 11:40 AM BRAZER HELPER INDUCTION Office Visit [facility] [address] [place] [address] Roberta Alex MD [address] [place] [address] documented as of this encounter Visit Diagnoses Not on filedocumented in this encounter
--- OUTSIDE RECORDS SUMMARY | 2024-07-11 10:05 | XMS_ITS | Encounter Summary ---
Author Organization [facility] Address [address] [place] [address]. [place], [place] [address] [place] [address] Care Team Providers Care Universal Winding Machine Operator Name Role Phone Unavailable Primary Care Provider Unavailabl e Encounter Details Date Type Department Care Team (Late st Contact Info) Description 10/20/2007 Abstract [facility] [address] [place] [address] Heriberto Elam, Social History Tobacco Use Types Packs/Day Years Used Date Smoking Tobacco: Never Assessed Comments Unknown Sex and Gender Information Value Date Recorded Sex Assigned at Not on file Legal Sex Female 11:30 PM MOLTEN IRON POURER Gender Identity Female 11/10/2021 3:09 PM CDT Sexual Orientation Straight 11/10/2021 3: 09 PM CDT documented as of this encounter Plan of Treatment Upcoming Encounters Date Type Department Care Team (Late st Contact Info) Description 09/25/2024 11:30 AM MOLTEN IRON POURER Appointment [facility] [address] [place] [address] Roberta Alex MD [address] [place] [address] 09/25/2024 11:40 AM MOLTEN IRON POURER Office Visit [facility] [address] [place] [address] Roberta Alex MD [address] [place] [address] documented as of this encounter Visit Diagnoses Not on filedocumented in this encounter
--- OUTSIDE RECORDS SUMMARY | 2024-07-11 10:05 | XMS_ITS | Encounter Summary ---
Author Organization [facility] Address [address] [place] [address]. [place] [address] [place] [address] Care Team Providers Care Electronics Test Engineer Name Role Phone Unavailable Primary Care Provider Unavailabl e Encounter Details Date Type Department Care Team (Late st Contact Info) Description 11/24/2007 Abstract [facility] [address] [place] [address] , Agatha Chun MD Social History Tobacco Use Types Packs/Day Years Used Date Smoking Tobacco: Never Assessed Comments Unknown Sex and Gender Information Value Date Recorded Sex Assigned at Not on file Legal Sex Female 11:30 PM BOBBIN WASHER Gender Identity Female 11/10/2021 3:09 PM CDT Sexual Orientation Straight 11/10/2021 3: 09 PM CDT documented as of this encounter Plan of Treatment Upcoming Encounters Date Type Department Care Team (Late st Contact Info) Description 09/25/2024 11:30 AM BOBBIN WASHER Appointment [facility] [address] [place] [address] Roberta Alex MD [address] [place] [address] 09/25/2024 11:40 AM BOBBIN WASHER Office Visit [facility] [place] [address] Roberta Alex MD [address] [place] [address] documented as of this encounter Visit Diagnoses Not on filedocumented in this encounter
--- OUTSIDE RECORDS SUMMARY | 2024-07-11 10:05 | XMS_ITS | Encounter Summary ---
Author Organization [facility] Address [address] [place] [address]. [place] [address] [place] [address] Care Team Providers Care Economics Lecturer Name Role Phone Unavailable Primary Care Provider Unavailabl e Encounter Details Date Type Department Care Team (Late st Contact Info) Description 05/09/2008 Abstract [facility] [address] [place] [address] Social History Tobacco Use Types Packs/Day Years Used Date Smoking Tobacco: Never Assessed Comments Unknown Sex and Gender Information Value Date Recorded Sex Assigned at Not on file Legal Sex Female 11:30 PM PREPARING BOX TENDER Gender Identity Female 11/10/2021 3:09 PM CDT Sexual Orientation Straight 11/10/2021 3: 09 PM CDT documented as of this encounter Plan of Treatment Upcoming Encounters Date Type Department Care Team (Late st Contact Info) Description 09/25/2024 11:30 AM PREPARING BOX TENDER Appointment [facility] [address] [place] [address] Roberta Alex MD [address] [place] [address] 09/25/2024 11:40 AM PREPARING BOX TENDER Office Visit [facility] [address] [place] [address] Roberta Alex MD [address] [place] [address] documented as of this encounter Visit Diagnoses Not on filedocumented in this encounter
--- OUTSIDE RECORDS SUMMARY | 2024-07-11 10:05 | XMS_ITS | Encounter Summary ---
Author Organization [facility] Address [facility] [place] [address] [place] [address] Care Team Providers Care Coffee Sampler Name Role Phone Unavailable Primary Care Provider Unavailabl e Encounter Details Date Type Department Care Team (Late Contact Info) Description 03/04/2008 Abstract [facility] [address] [place] [address] Cirilo Schultz MD [address] [place] [phone] Social History Tobacco Use Types Packs/Day Years Used Date Smoking Tobacco: Never Assessed Comments Unknown Sex and Gender Information Value Date Recorded Sex Assigned at Not on file Legal Sex Female 11:30 PM TWIST MAKER Gender Identity Female 11/10/2021 3:09 PM CDT Sexual Orientation Straight 11/10/2021 3: 09 PM CDT documented as of this encounter Plan of Treatment Upcoming Encounters Date Type Department Care Team (Late Contact Info) Description 09/25/2024 11:30 AM TWIST MAKER Appointment [facility] [address] [place] [address] Roberta Alex MD [address] [place] [address] 09/25/2024 11:40 AM TWIST MAKER Office Visit [facility] [address] [place] [address] Roberta Alex MD [address] [place] [address] documented as of this encounter Visit Diagnoses Not on filedocumented in this encounter
--- OUTSIDE RECORDS SUMMARY | 2024-07-11 10:05 | XMS_ITS | Encounter Summary ---
Author Organization [facility] Address [facility] [place] [address] [place] [address] Care Team Providers Care Powdered Sugar Supervisor Name Role Phone Unavailable Primary Care Provider Unavailabl e Encounter Details Date Type Department Care Team (Late Contact Info) Description 04/15/2008 Abstract [facility] [address] [place] [address] Cirilo Schultz MD [address] [place] [phone] Social History Tobacco Use Types Packs/Day Years Used Date Smoking Tobacco: Never Assessed Comments Unknown Sex and Gender Information Value Date Recorded Sex Assigned at Not on file Legal Sex Female 11:30 PM COSMETICIAN APPRENTICE Gender Identity Female 11/10/2021 3:09 PM CDT Sexual Orientation Straight 11/10/2021 3: 09 PM CDT documented as of this encounter Plan of Treatment Upcoming Encounters Date Type Department Care Team (Late Contact Info) Description 09/25/2024 11:30 AM COSMETICIAN APPRENTICE Appointment [facility] [address] [place] [address] Roberta Alex MD [address] [place] [address] 09/25/2024 11:40 AM COSMETICIAN APPRENTICE Office Visit [facility] [address] [place] [address] Roberta Alex MD [address] [place] [address] documented as of this encounter Visit Diagnoses Not on filedocumented in this encounter
--- OUTSIDE RECORDS SUMMARY | 2024-07-11 10:05 | XMS_ITS | Encounter Summary ---
Author Organization [facility] Address [address] [place] [address]. [place] [address] [place] [address] Care Team Providers Care Arabic Professor Name Role Phone Unavailable Primary Care Provider Unavailabl e Encounter Details Date Type Department Care Team (Late st Contact Info) Description 10/12/2007 Abstract [facility] [address] [place] [address] Social History Tobacco Use Types Packs/Day Years Used Date Smoking Tobacco: Never Assessed Comments Unknown Sex and Gender Information Value Date Recorded Sex Assigned at Not on file Legal Sex Female 11:30 PM HOME HEALTH OCCUPATIONAL THERAPIST Gender Identity Female 11/10/2021 3:09 PM CDT Sexual Orientation Straight 11/10/2021 3: 09 PM CDT documented as of this encounter Plan of Treatment Upcoming Encounters Date Type Department Care Team (Late st Contact Info) Description 09/25/2024 11:30 AM HOME HEALTH OCCUPATIONAL THERAPIST Appointment [facility] [address] [place] [address] Roberta Alex MD [address] [place] [address] 09/25/2024 11:40 AM HOME HEALTH OCCUPATIONAL THERAPIST Office Visit [facility] [address] [place] [address] Roberta Alex MD [address] [place] [address] documented as of this encounter Visit Diagnoses Not on filedocumented in this encounter
--- OUTSIDE RECORDS SUMMARY | 2024-07-11 10:05 | XMS_ITS | Encounter Summary ---
Author Organization [facility] Address [facility] [place] [address] [place] [address] Care Team Providers Care Director Of Music Name Role Phone Unavailable Primary Care Provider Unavailabl e Encounter Details Date Type Department Care Team (Late Contact Info) Description 05/31/2008 Abstract [facility] [address] [place] [address] Cirilo Schultz MD [address] [place] [phone] Social History Tobacco Use Types Packs/Day Years Used Date Smoking Tobacco: Never Assessed Comments Unknown Sex and Gender Information Value Date Recorded Sex Assigned at Not on file Legal Sex Female 11:30 PM MARZIPAN MAKER Gender Identity Female 11/10/2021 3:09 PM CDT Sexual Orientation Straight 11/10/2021 3: 09 PM CDT documented as of this encounter Plan of Treatment Upcoming Encounters Date Type Department Care Team (Late Contact Info) Description 09/25/2024 11:30 AM MARZIPAN MAKER Appointment [facility] [address] [place] [address] Roberta Alex MD [address] [place] [address] 09/25/2024 11:40 AM MARZIPAN MAKER Office Visit [facility] [address] [place] [address] Roberta Alex MD [address] [place] [address] documented as of this encounter Visit Diagnoses Not on filedocumented in this encounter
--- OUTSIDE RECORDS SUMMARY | 2024-07-11 10:05 | XMS_ITS | Encounter Summary ---
Author Organization [facility] Address Critical access hospital6 [facility] [place] [address] [place] [address] Care Team Providers Care Foot Roentgenologist Name Role Phone Unavailable Primary Care Provider Unavailabl e Encounter Details Date Type Department Care Team (Late Contact Info) Description 04/11/2008 Abstract [facility] [address] [place] [address] Cirilo Schultz MD [address] [place] [phone] Social History Tobacco Use Types Packs/Day Years Used Date Smoking Tobacco: Never Assessed Comments Unknown Sex and Gender Information Value Date Recorded Sex Assigned at Not on file Legal Sex Female 11:30 PM HVAC MECHANIC Gender Identity Female 11/10/2021 3:09 PM CDT Sexual Orientation Straight 11/10/2021 3: 09 PM CDT documented as of this encounter Plan of Treatment Upcoming Encounters Date Type Department Care Team (Late Contact Info) Description 09/25/2024 11:30 AM HVAC MECHANIC Appointment [facility] [address] [place] [address] Roberta Alex MD [address] [place] [address] 09/25/2024 11:40 AM HVAC MECHANIC Office Visit [facility] [address] [place] [address] Roberta Alex MD [address] [place] [address] documented as of this encounter Visit Diagnoses Not on filedocumented in this encounter
--- OUTSIDE RECORDS SUMMARY | 2024-07-11 10:05 | XMS_ITS | Encounter Summary ---
Author Organization [facility] Address [facility] [place] [address] [place] [address] Care Team Providers Care Colorist Name Role Phone Unavailable Primary Care Provider Unavailabl e Encounter Details Date Type Department Care Team (Late Contact Info) Description 03/01/2008 Abstract [facility] [address] [place] [address] Cirilo Schultz MD [address] [place] [phone] Social History Tobacco Use Types Packs/Day Years Used Date Smoking Tobacco: Never Assessed Comments Unknown Sex and Gender Information Value Date Recorded Sex Assigned at Not on file Legal Sex Female 11:30 PM LIVE IN HOUSEKEEPER NANNY Gender Identity Female 11/10/2021 3:09 PM CDT Sexual Orientation Straight 11/10/2021 3: 09 PM CDT documented as of this encounter Plan of Treatment Upcoming Encounters Date Type Department Care Team (Late Contact Info) Description 09/25/2024 11:30 AM LIVE IN HOUSEKEEPER NANNY Appointment [facility] [address] [place] [address] Roberta Alex MD [address] [place] [address] 09/25/2024 11:40 AM LIVE IN HOUSEKEEPER NANNY Office Visit [facility] [address] [place] [address] Roberta Alex MD [address] [place] [address] documented as of this encounter Visit Diagnoses Not on filedocumented in this encounter
--- OUTSIDE RECORDS SUMMARY | 2024-07-11 10:05 | XMS_ITS | Encounter Summary ---
Author Organization [facility] Address Critical access hospital6 [facility] [place] [address] [place] [address] Care Team Providers Care Motor Bike Mechanic Name Role Phone Unavailable Primary Care Provider Unavailabl e Encounter Details Date Type Department Care Team (Late Contact Info) Description 06/15/2007 Abstract [facility] [address] [place] [address] Boy Bustillos MD [address] [place] [address] Social History Tobacco Use Types Packs/Day Years Used Date Smoking Tobacco: Never Assessed Comments Unknown Sex and Gender Information Value Date Recorded Sex Assigned at Not on file Legal Sex Female 11:30 PM TURF KEEPER Gender Identity Female 11/10/2021 3:09 PM CDT Sexual Orientation Straight 11/10/2021 3: 09 PM CDT documented as of this encounter Plan of Treatment Upcoming Encounters Date Type Department Care Team (Late Contact Info) Description 09/25/2024 11:30 AM TURF KEEPER Appointment [facility] [address] [place] [address] Roberta Alex MD [address] [place] [address] 09/25/2024 11:40 AM TURF KEEPER Office Visit [facility] [address] [place] [address] Roberta Alex MD [address] [place] [address] documented as of this encounter Visit Diagnoses Not on filedocumented in this encounter
--- OUTSIDE RECORDS SUMMARY | 2024-07-11 10:05 | XMS_ITS | Encounter Summary ---
Author Organization [facility] Address [facility] [place] [address] [place] [address] Care Team Providers Care Active Directory Administrator Name Role Phone Unavailable Primary Care Provider Unavailabl e Encounter Details Date Type Department Care Team (Late Contact Info) Description 04/17/2008 Abstract [facility] [address] [place] [address] Cirilo Schultz MD [address] [place] [phone] Social History Tobacco Use Types Packs/Day Years Used Date Smoking Tobacco: Never Assessed Comments Unknown Sex and Gender Information Value Date Recorded Sex Assigned at Not on file Legal Sex Female 11:30 PM JET MAN Gender Identity Female 11/10/2021 3:09 PM CDT Sexual Orientation Straight 11/10/2021 3: 09 PM CDT documented as of this encounter Plan of Treatment Upcoming Encounters Date Type Department Care Team (Late Contact Info) Description 09/25/2024 11:30 AM JET MAN Appointment [facility] [address] [place] [address] Roberta Alex MD [address] [place] [address] 09/25/2024 11:40 AM JET MAN Office Visit [facility] [address] [place] [address] Roberta lAex MD [address] [place] [address] documented as of this encounter Visit Diagnoses Not on filedocumented in this encounter
--- OUTSIDE RECORDS SUMMARY | 2024-07-11 10:05 | XMS_ITS | Encounter Summary ---
Author Organization [facility] Address [address] [place] [address]. [place], [place] [address] [place] [address] Care Team Providers Care Concrete Pavement Installer Name Role Phone Unavailable Primary Care Provider Unavailabl e Encounter Details Date Type Department Care Team (Late st Contact Info) Description 05/30/2008 Abstract [facility] [address] [place] [address] Heriberto Elam, Social History Tobacco Use Types Packs/Day Years Used Date Smoking Tobacco: Never Assessed Comments Unknown Sex and Gender Information Value Date Recorded Sex Assigned at Not on file Legal Sex Female 11:30 PM TUB PULLER Gender Identity Female 11/10/2021 3:09 PM CDT Sexual Orientation Straight 11/10/2021 3: 09 PM CDT documented as of this encounter Plan of Treatment Upcoming Encounters Date Type Department Care Team (Late st Contact Info) Description 09/25/2024 11:30 AM TUB PULLER Appointment [facility] [address] [place] [address] Roberta Alex MD [address] [place] [address] 09/25/2024 11:40 AM TUB PULLER Office Visit [facility] [address] [place] [address] Roberta Alex MD [address] [place] [address] documented as of this encounter Visit Diagnoses Not on filedocumented in this encounter
--- OUTSIDE RECORDS SUMMARY | 2024-07-11 10:06 | XMS_ITS | Encounter Summary ---
Author Organization [facility] Address [facility] [place] [address] [place] [address] Care Team Providers Care Manager Investment Name Role Phone Unavailable Primary Care Provider Unavailabl e Encounter Details Date Type Department Care Team (Late Contact Info) Description 03/07/2005 Abstract [facility] [address] [place] [address] Cirilo Schultz MD [address] [place] [phone] Social History Tobacco Use Types Packs/Day Years Used Date Smoking Tobacco: Never Assessed Comments Unknown Sex and Gender Information Value Date Recorded Sex Assigned at Not on file Legal Sex Female 11:30 PM WATCHSTANDER Gender Identity Female 11/10/2021 3:09 PM CDT Sexual Orientation Straight 11/10/2021 3: 09 PM CDT documented as of this encounter Plan of Treatment Upcoming Encounters Date Type Department Care Team (Late Contact Info) Description 09/25/2024 11:30 AM WATCHSTANDER Appointment [facility] [address] [place] [address] Roberta Alex MD [address] [place] [address] 09/25/2024 11:40 AM WATCHSTANDER Office Visit [facility] [address] [place] [address] Roberta Alex MD [address] [place] [address] documented as of this encounter Visit Diagnoses Not on filedocumented in this encounter
--- OUTSIDE RECORDS SUMMARY | 2024-07-11 10:06 | XMS_ITS | Encounter Summary ---
Author Organization [facility] Address [address] [facility] [place] [address] [place] [address] Care Team Providers Care Cellophane Press Operator Name Role Phone Unavailable Primary Care Provider Unavailabl e Encounter Details Date Type Department Care Team (Late Contact Info) Description 01/19/2006 Abstract [facility] [address] [place] [address] Conner Gallegos MD [address] [place] [phone] Social History Tobacco Use Types Packs/Day Years Used Date Smoking Tobacco: Never Assessed Comments Unknown Sex and Gender Information Value Date Recorded Sex Assigned at Not on file Legal Sex Female 11:30 PM SCOURING TRAIN OPERATOR CHIEF Gender Identity Female 11/10/2021 3:09 PM CDT Sexual Orientation Straight 11/10/2021 3: 09 PM CDT documented as of this encounter Plan of Treatment Upcoming Encounters Date Type Department Care Team (Late Contact Info) Description 09/25/2024 11:30 AM SCOURING TRAIN OPERATOR CHIEF Appointment [facility] [address] [address] Roberta Alex MD [address] [place] [address] 09/25/2024 11:40 AM SCOURING TRAIN OPERATOR CHIEF Office Visit [facility] [address] [place] [address] Roberta Alex MD [address] [place] [address] documented as of this encounter Visit Diagnoses Not on filedocumented in this encounter
--- OUTSIDE RECORDS SUMMARY | 2024-07-11 10:06 | XMS_ITS | Encounter Summary ---
Author Organization [facility] Address [facility] [place] [address] [place] [address] Care Team Providers Care Meter Record Clerk Name Role Phone Unavailable Primary Care Provider Unavailabl e Encounter Details Date Type Department Care Team (Late Contact Info) Description 07/05/2005 Abstract [facility] [address] [place] [address] Cirilo Schultz MD [address] [place] [phone] Social History Tobacco Use Types Packs/Day Years Used Date Smoking Tobacco: Never Assessed Comments Unknown Sex and Gender Information Value Date Recorded Sex Assigned at Not on file Legal Sex Female 11:30 PM TIME STUDY ANALYST Gender Identity Female 11/10/2021 3:09 PM CDT Sexual Orientation Straight 11/10/2021 3: 09 PM CDT documented as of this encounter Plan of Treatment Upcoming Encounters Date Type Department Care Team (Late Contact Info) Description 09/25/2024 11:30 AM TIME STUDY ANALYST Appointment [facility] [address] [place] [address] Roberta Alex MD [address] [place] [address] 09/25/2024 11:40 AM TIME STUDY ANALYST Office Visit [facility] [address] [place] [address] Roberta Alex MD [address] [place] [address] documented as of this encounter Visit Diagnoses Not on filedocumented in this encounter
--- OUTSIDE RECORDS SUMMARY | 2024-07-11 10:06 | XMS_ITS | Encounter Summary ---
Author Organization [facility] Address [address] [facility] [place] [address] [place] [address] Care Team Providers Care Senior Ui Developer Name Role Phone Unavailable Primary Care Provider Unavailabl e Encounter Details Date Type Department Care Team (Late Contact Info) Description 07/26/2006 Abstract [facility] [address] [place] [address] Conner Gallegos MD [address] [place] [phone] Social History Tobacco Use Types Packs/Day Years Used Date Smoking Tobacco: Never Assessed Comments Unknown Sex and Gender Information Value Date Recorded Sex Assigned at Not on file Legal Sex Female 11:30 PM WAREHOUSE SHIPPING RECEIVING CLERK Gender Identity Female 11/10/2021 3:09 PM CDT Sexual Orientation Straight 11/10/2021 3: 09 PM CDT documented as of this encounter Plan of Treatment Upcoming Encounters Date Type Department Care Team (Late Contact Info) Description 09/25/2024 11:30 AM WAREHOUSE SHIPPING RECEIVING CLERK Appointment [facility] [address] [place] [address] Roberta Alex MD [address] [place] [address] 09/25/2024 11:40 AM WAREHOUSE SHIPPING RECEIVING CLERK Office Visit [facility] [address] [place] [address] Roberta Alex MD [address] [place] [address] documented as of this encounter Visit Diagnoses Not on filedocumented in this encounter
--- OUTSIDE RECORDS SUMMARY | 2024-07-11 10:06 | XMS_ITS | Encounter Summary ---
Author Organization [facility] Address [facility] [place] [address] [place] [address] Care Team Providers Care Target Setter Name Role Phone Unavailable Primary Care Provider Unavailabl e Encounter Details Date Type Department Care Team (Late Contact Info) Description 02/02/2006 Abstract [facility] [address] [place] [address] Cirilo Schultz MD [address] [place] [phone] Social History Tobacco Use Types Packs/Day Years Used Date Smoking Tobacco: Never Assessed Comments Unknown Sex and Gender Information Value Date Recorded Sex Assigned at Not on file Legal Sex Female 11:30 PM TEAM FACILITATOR Gender Identity Female 11/10/2021 3:09 PM CDT Sexual Orientation Straight 11/10/2021 3: 09 PM CDT documented as of this encounter Plan of Treatment Upcoming Encounters Date Type Department Care Team (Late Contact Info) Description 09/25/2024 11:30 AM TEAM FACILITATOR Appointment [facility] [address] [place] [address] Roberta Alex MD [address] [place] [address] 09/25/2024 11:40 AM TEAM FACILITATOR Office Visit [facility] [address] [place] [address] Roberta Alex MD [address] [place] [address] documented as of this encounter Visit Diagnoses Not on filedocumented in this encounter
--- OUTSIDE RECORDS SUMMARY | 2024-07-11 10:06 | XMS_ITS | Encounter Summary ---
Author Organization [facility] Address [facility] [place] [address] [place] [address] Care Team Providers Care Reimbursement Representative Name Role Phone Unavailable Primary Care Provider Unavailabl e Encounter Details Date Type Department Care Team (Late Contact Info) Description 07/25/2005 Abstract [facility] [address] [place] [address] Cirilo Schultz MD [address] [place] [phone] Social History Tobacco Use Types Packs/Day Years Used Date Smoking Tobacco: Never Assessed Comments Unknown Sex and Gender Information Value Date Recorded Sex Assigned at Not on file Legal Sex Female 11:30 PM LINE MOVER Gender Identity Female 11/10/2021 3:09 PM CDT Sexual Orientation Straight 11/10/2021 3: 09 PM CDT documented as of this encounter Plan of Treatment Upcoming Encounters Date Type Department Care Team (Late Contact Info) Description 09/25/2024 11:30 AM LINE MOVER Appointment [facility] [address] [place] [address] Roberta Alex MD [address] [place] [address] 09/25/2024 11:40 AM LINE MOVER Office Visit [facility] [address] [place] [address] Roberta Alex MD [address] [place] [address] documented as of this encounter Visit Diagnoses Not on filedocumented in this encounter
--- OUTSIDE RECORDS SUMMARY | 2024-07-11 10:06 | XMS_ITS | Encounter Summary ---
Author Organization [facility] Address [facility] [place] [address] [place] [address] Care Team Providers Care Redipper Name Role Phone Unavailable Primary Care Provider Unavailabl e Encounter Details Date Type Department Care Team (Late Contact Info) Description 09/03/2005 Abstract [facility] [address] [place] [address] Endy Bagley MD [address] [place] [phone] Social History Tobacco Use Types Packs/Day Years Used Date Smoking Tobacco: Never Assessed Comments Unknown Sex and Gender Information Value Date Recorded Sex Assigned at Not on file Legal Sex Female 11:30 PM WAITER/WAITRESS CAFETERIA Gender Identity Female 11/10/2021 3:09 PM CDT Sexual Orientation Straight 11/10/2021 3: 09 PM CDT documented as of this encounter Plan of Treatment Upcoming Encounters Date Type Department Care Team (Late Contact Info) Description 09/25/2024 11:30 AM WAITER/WAITRESS CAFETERIA Appointment [facility] [address] [place] [address] Roberta Alex MD [address] [place] [address] 09/25/2024 11:40 AM WAITER/WAITRESS CAFETERIA Office Visit [facility] [address] [place] [address] Roberta Alex MD [address] [place] [phone] (work) documented as of this encounter Visit Diagnoses Not on filedocumented in this encounter
--- OUTSIDE RECORDS SUMMARY | 2024-07-11 10:06 | XMS_ITS | Encounter Summary ---
Author Organization [facility] Address [facility]6 [facility] [place] [address] [place] [address] Care Team Providers Care Confectionery Drops Machine Operator Name Role Phone Unavailable Primary Care Provider Unavailabl e Encounter Details Date Type Department Care Team (Late Contact Info) Description 06/24/2005 Abstract [facility] [address] [place] [address] Cirilo Schultz MD [address] [place] [phone] Social History Tobacco Use Types Packs/Day Years Used Date Smoking Tobacco: Never Assessed Comments Unknown Sex and Gender Information Value Date Recorded Sex Assigned at Not on file Legal Sex Female 11:30 PM CASE FITTER Gender Identity Female 11/10/2021 3:09 PM CDT Sexual Orientation Straight 11/10/2021 3: 09 PM CDT documented as of this encounter Plan of Treatment Upcoming Encounters Date Type Department Care Team (Late Contact Info) Description 09/25/2024 11:30 AM CASE FITTER Appointment [facility] [address] [place] [address] Roberta Alex MD [address] [place] [address] 09/25/2024 11:40 AM CASE FITTER Office Visit [facility] [address] [place] [address] Roberta Alex MD [address] [place] [address] documented as of this encounter Visit Diagnoses Not on filedocumented in this encounter
--- OUTSIDE RECORDS SUMMARY | 2024-07-11 10:06 | XMS_ITS | Encounter Summary ---
Author Organization [facility] Address [facility] [place] [address] [place] [address] Care Team Providers Care Solderer Barrel Ribs Name Role Phone Unavailable Primary Care Provider Unavailabl e Encounter Details Date Type Department Care Team (Late Contact Info) Description 12/05/2004 Abstract [facility] [address] [place] [address] Augustin Boyd MD [address] [address] Social History Tobacco Use Types Packs/Day Years Used Date Smoking Tobacco: Never Assessed Comments Unknown Sex and Gender Information Value Date Recorded Sex Assigned at Not on file Legal Sex Female 11:30 PM STEAM METER READER Gender Identity Female 11/10/2021 3:09 PM CDT Sexual Orientation Straight 11/10/2021 3: 09 PM CDT documented as of this encounter Plan of Treatment Upcoming Encounters Date Type Department Care Team (Late Contact Info) Description 09/25/2024 11:30 AM STEAM METER READER Appointment [facility] [address] [place] [address] Roberta Alex MD [address] [place] [address] 09/25/2024 11:40 AM STEAM METER READER Office Visit [facility] [address] [place] [address] Roberta Alex MD [address] [place] [phone] (work) documented as of this encounter Visit Diagnoses Not on filedocumented in this encounter
--- OUTSIDE RECORDS SUMMARY | 2024-07-11 10:06 | XMS_ITS | Encounter Summary ---
Author Organization [facility] Address [facility] [address] [place] [address] Care Team Providers Care Unix Consultant Name Role Phone Unavailable Primary Care Provider Unavailabl e Encounter Details Date Type Department Care Team (Late Contact Info) Description 11/08/2005 Abstract [facility] [address] [place] [address] Endy Bagley MD [address] [place] [phone] Social History Tobacco Use Types Packs/Day Years Used Date Smoking Tobacco: Never Assessed Comments Unknown Sex and Gender Information Value Date Recorded Sex Assigned at Not on file Legal Sex Female 11:30 PM CUSTOMS PORT DIRECTOR Gender Identity Female 11/10/2021 3:09 PM CDT Sexual Orientation Straight 11/10/2021 3: 09 PM CDT documented as of this encounter Plan of Treatment Upcoming Encounters Date Type Department Care Team (Late Contact Info) Description 09/25/2024 11:30 AM CUSTOMS PORT DIRECTOR Appointment [facility] [address] [place] [address] Roberta Alex MD [address] [place] [address] 09/25/2024 11:40 AM CUSTOMS PORT DIRECTOR Office Visit [facility] [address] [place] [address] Roberta Alex MD [address] [place] [phone] (work) documented as of this encounter Visit Diagnoses Not on filedocumented in this encounter
--- OUTSIDE RECORDS SUMMARY | 2024-07-11 10:06 | XMS_ITS | Encounter Summary ---
Author Organization [facility] Address [facility] [place] [address] [place] [address] Care Team Providers Care Warp Dyeing Tender Name Role Phone Unavailable Primary Care Provider Unavailabl e Encounter Details Date Type Department Care Team (Late Contact Info) Description 12/07/2004 Abstract [facility] [address] [place] [address] Cirilo Schultz MD [address] [place] [phone] Social History Tobacco Use Types Packs/Day Years Used Date Smoking Tobacco: Never Assessed Comments Unknown Sex and Gender Information Value Date Recorded Sex Assigned at Not on file Legal Sex Female 11:30 PM SVP PROGRAMMATIC TV Gender Identity Female 11/10/2021 3:09 PM CDT Sexual Orientation Straight 11/10/2021 3: 09 PM CDT documented as of this encounter Plan of Treatment Upcoming Encounters Date Type Department Care Team (Late Contact Info) Description 09/25/2024 11:30 AM SVP PROGRAMMATIC TV Appointment [facility] [address] [place] [address] Roberta Alex MD [address] [place] [address] 09/25/2024 11:40 AM SVP PROGRAMMATIC TV Office Visit [facility] [address] [place] [address] Roberta Alex MD [address] [place] [address] documented as of this encounter Visit Diagnoses Not on filedocumented in this encounter
--- OUTSIDE RECORDS SUMMARY | 2024-07-11 10:06 | XMS_ITS | Encounter Summary ---
Author Organization [facility] Address [facility] [place] [address] [place] [address] Care Team Providers Care Can Runner Name Role Phone Unavailable Primary Care Provider Unavailabl e Encounter Details Date Type Department Care Team (Late Contact Info) Description 07/05/2005 Abstract [facility] [address] [place] [address] Cirilo Schultz MD [address] [place] [phone] Social History Tobacco Use Types Packs/Day Years Used Date Smoking Tobacco: Never Assessed Comments Unknown Sex and Gender Information Value Date Recorded Sex Assigned at Not on file Legal Sex Female 11:30 PM MANUFACTURING ENGINEER CHIEF Gender Identity Female 11/10/2021 3:09 PM CDT Sexual Orientation Straight 11/10/2021 3: 09 PM CDT documented as of this encounter Plan of Treatment Upcoming Encounters Date Type Department Care Team (Late Contact Info) Description 09/25/2024 11:30 AM MANUFACTURING ENGINEER CHIEF Appointment [facility] [address] [place] [address] Roberta Alex MD [address] [place] [address] 09/25/2024 11:40 AM MANUFACTURING ENGINEER CHIEF Office Visit [facility] [address] [place] [address] Roberta Alex MD [address] [place] [address] documented as of this encounter Visit Diagnoses Not on filedocumented in this encounter
--- OUTSIDE RECORDS SUMMARY | 2024-07-11 10:06 | XMS_ITS | Encounter Summary ---
Author Organization [facility] Address [facility] [place] [address] [place] [address] Care Team Providers Care Rail Car Operator Name Role Phone Unavailable Primary Care Provider Unavailabl e Encounter Details Date Type Department Care Team (Late Contact Info) Description 07/13/2005 Abstract [facility] [address] [place] [address] Cirilo Schultz MD [address] [place] [phone] Social History Tobacco Use Types Packs/Day Years Used Date Smoking Tobacco: Never Assessed Comments Unknown Sex and Gender Information Value Date Recorded Sex Assigned at Not on file Legal Sex Female 11:30 PM NUCLEAR LICENSING ENGINEER Gender Identity Female 11/10/2021 3:09 PM CDT Sexual Orientation Straight 11/10/2021 3: 09 PM CDT documented as of this encounter Plan of Treatment Upcoming Encounters Date Type Department Care Team (Late Contact Info) Description 09/25/2024 11:30 AM NUCLEAR LICENSING ENGINEER Appointment [facility] [address] [place] [address] Roberta Alex MD [address] [place] [address] 09/25/2024 11:40 AM NUCLEAR LICENSING ENGINEER Office Visit [facility] [address] [place] [address] Roberta Alex MD [address] [place] [address] documented as of this encounter Visit Diagnoses Not on filedocumented in this encounter
--- OUTSIDE RECORDS SUMMARY | 2024-07-11 10:06 | XMS_ITS | Encounter Summary ---
Author Organization [facility] Address [facility] [place] [address] [place] [address] Care Team Providers Care Naval Marine Engineer Name Role Phone Unavailable Primary Care Provider Unavailabl e Encounter Details Date Type Department Care Team (Late Contact Info) Description 07/08/2005 Abstract [facility] [address] [place] [address] Cirilo Schultz MD [address] [place] [phone] Social History Tobacco Use Types Packs/Day Years Used Date Smoking Tobacco: Never Assessed Comments Unknown Sex and Gender Information Value Date Recorded Sex Assigned at Not on file Legal Sex Female 11:30 PM CRIMINAL LEGAL ASSISTANT Gender Identity Female 11/10/2021 3:09 PM CDT Sexual Orientation Straight 11/10/2021 3: 09 PM CDT documented as of this encounter Plan of Treatment Upcoming Encounters Date Type Department Care Team (Late Contact Info) Description 09/25/2024 11:30 AM CRIMINAL LEGAL ASSISTANT Appointment [facility] [address] [place] [address] Roberta Alex MD [address] [place] [address] 09/25/2024 11:40 AM CRIMINAL LEGAL ASSISTANT Office Visit [facility] [address] [place] [address] Roberta Alex MD [address] [place] [address] documented as of this encounter Visit Diagnoses Not on filedocumented in this encounter
== END 2024-07-07 12:13 | disposition home or self-care (01) ==
PROVIDERS: Emergency Provider Internal Medicine Critical Care Medicine; PCP Family Medicine
DX: J40 Bronchitis, not specified as acute or chronic (principal); G43.909 Migraine, unspecified, not intractable, without status migrainosus; J06.9 Acute upper respiratory infection, unspecified; Z20.822 Contact with and (suspected) exposure to COVID-19
CPT/HCPCS: 71045; 87637; 87651; 99283

== ENCOUNTER 2024-08-26 22:21 | Emergency (ER) | payer MEDICAID, SELFPAY ==
--- OUTSIDE RECORDS SUMMARY | 2024-08-26 22:22 | XMS_ITS | Encounter Summary ---
Author Organization [facility] Address [address] [place] [address]. [place] [address] [place] [address] Care Team Providers Care Wood Machine Carver Name Role Phone Alejandro Blevins MD Primary Care Provider [phone] Encounter Details Date Type Department Care Team (Late st Contact Info) Description 11/29/2022 PlayScapet Message Enc [address] [place] [address] Roberta Alex MD [address] [place] [phone] Note for work Social History Tobacco Use Types Packs/Day Years Used Date Smoking Tobacco: Every Day Cigarettes Smokeless Tobacco: Never Alcohol Use Standard Drinks/Week Comments Not Currently 0 (1 standard drink = 0.6 oz pur e alcohol) Comments No Sex and Gender Information Value Date Recorded Sex Assigned at Not on file Legal Sex Female 11:30 PM YACHT MASTER Gender Identity Female 11/10/2021 3:09 PM CDT [...] Assessment Author Status No 07/30/2020 10:48 PM YACHT MASTER Acti ve * RETIRED Are you blind or do you have serious difficulty seeing, even when wearing glasses? Answer Date of Assessment Author Status No 07/30/2020 10:46 PM YACHT MASTER Acti ve * Do you have serious [...] st Contact Info) Description 09/25/2024 11:30 AM YACHT MASTER Appointment [facility] [address] [place] [address] Roberta Alex MD [address] [place] [phone] 09/25/2024 11:40 AM YACHT MASTER Office Visit [facility] [place] [address] [address] Roberta Alex MD [address] [place] [phone] documented as of this encounter Visit Diagnoses Not on filedocumented in this encounter Additional Health Concerns Infection Onset Date Last Indicated Resolved Time MRSA 06/05/2021 06/05/2021 documented as of this encounter Care Teams Wood Machine Carver Relationship Specialty Start Date End Date Alejandro Blevins MD PCP - General FAMILY PRACTICE 12/10/19 documented as of this encounter
--- OUTSIDE RECORDS SUMMARY | 2024-08-26 22:22 | XMS_ITS | Encounter Summary ---
Author Organization [facility] Address [address] [place] [address]. [place] [address] [place] [address] Care Team Providers Care International Sourcing Manager Name Role Phone Alejandro Blevins MD Primary Care Provider [phone] Encounter Details Date Type Department Care Team (Late st Contact Info) Description 11/30/2022 ResiModelt Message Enc [address] [place] [address] Roberta Alex MD [address] [place] [phone] Paperwork Social History Tobacco Use Types Packs/Day Years Used Date Smoking Tobacco: Every Day Cigarettes Smokeless Tobacco: Never Alcohol Use Standard Drinks/Week Comments Not Currently 0 (1 standard drink = 0.6 oz pur e alcohol) Comments No Sex and Gender Information Value Date Recorded Sex Assigned at Not on file Legal Sex Female 11:30 PM MODELING AGENCY MANAGER Gender Identity Female 11/10/2021 3:09 PM [...] Assessment Author Status No 07/30/2020 10:48 PM MODELING AGENCY MANAGER Acti ve * RETIRED Are you blind or do you have serious difficulty seeing, even when wearing glasses? Answer Date of Assessment Author Status No 07/30/2020 10:46 PM MODELING AGENCY MANAGER Acti ve * Do you have [...] documented in this encounter Progress Notes * Hrashad Espitia MA - 11/30/2022 8:15 AM CDT Forwarding message about pt needing paper work filled. documented in this encounter Plan of Treatment Upcoming Encounters Date Type Department Care Team (Late st Contact Info) Description 09/25/2024 11:30 AM MODELING AGENCY MANAGER Appointment [facility] [address] [place] [address] Roberta Alex MD [address] [place] [address] [phone] 09/25/2024 11:40 AM MODELING AGENCY MANAGER Office [facility] [place] [address] [address] Roberta Alex MD [address] [place] [phone] documented as of this encounter Visit Diagnoses Not on filedocumented in this encounter Additional Health Concerns Infection Onset Date Last Indicated Resolved Time MRSA 06/05/2021 06/05/2021 documented as of this encounter Care Teams International Sourcing Manager Relationship Specialty Start Date End Date Alejandro Blevins MD PCP - General FAMILY PRACTICE 12/10/19 documented as of this encounter
--- OUTSIDE RECORDS SUMMARY | 2024-08-26 22:22 | XMS_ITS | Clinical Summary ---
Author Organization [facility] Address [address] [place] [address] Care Team Providers Care Deal Architect Name Role Phone Alejandro Blevins MD Primary Care Provider [phone] Source Comments [facility],non-owned Affiliates and Associated Physician Practices is amultiple site organization consisting of ambulatory clinics and hospital sitesin [place], [place], [place] and [place]. This disclosure is being madepursuant to the Care Everywhere program and may not contain all information available regarding this patient. Last updated 18.[facility] Allergies Active Allergy Reactions Criticality Noted [...] migh t be different from the original. [employer] form completed. Diapers given. 06/02/2020 [...] Date Smoking Tobacco: Some Days Cigarettes 0.5 20.1 Started: 07/2004 Smokeless Tobacco: Never Tobacco Cessation:Ready [...] Comments Blood Pressure 108/71 08/19/2021 11:05 AM STOCK DRIVER Pulse 74 08/19/2021 11:05 AM STOCK DRIVER Temperature 36.2 ??C (97.2 ??F) 06/02/2020 8:43 [...] Health Maintenance Due Date Last Done Comments DTAP/TDAP/TD VACCINES (1 - Tdap) 2007 HEPATITIS B VACCINE (1 of 3 - 19+ 3-dose series) 2007 PNEUMOCOCCAL VACCINE (1 of 2 - PCV) 2007 COVID-19 VACCINE (1 - 2023- season) 2024 INFLUENZA VACCINE (#1) 2024 DEPRESSION SCREENING 07/25/2024 PAP with HPV 08/19/2026 08/19/2021, 05/12/2020 ZOSTER VACCINE (1 of 2) 2038 HIV SCREENING Completed 04/17/2020, 12/19/2019 HEPATITIS C SCREENING Completed 05/01/2020 , 01/23/2020, 12/08/2019, Additional history exists HIB VACCINE Aged Out No longer eligi ble based on patient's age to complete this topic HPV VACCINE Aged Out No longer eligi ble based on patient's age to complete this topic MENINGOCOCCAL (Group B) VACCINE Aged Out No longer eligible based on patient's age to complete this topic MENINGOCOCCAL VACCINE Aged Out No rambo marquise eligible based on patient's age to complete this topic Procedures Procedure Name Priority Date/Time Associated Diagnosis Comments PAP IG LB+HPV APTIMA Routine 08/19/2021 11:34 AM STOCK DRIVER High grade squamous intraepithelial lesion (HGSIL), grade 3 WIL, on biopsy of cervix HIV-1 HIV-2 ANTIBODY + HIV P24 AG PANEL STAT 04/17/2020 8:57 PM CDT HEPATITIS C RNA QUANTITATIVE Routine 12/08/2019 7:03 AM CDT Anemia, unspecified type from Last 3 Months or Most Recently Relevant to Health Maintenance Results * PAP IG LB+HPV APTIMA (08/19/2021 11:34 AM STOCK DRIVER) Diagnosis Comment 08/22/2021 7:09 AM STOCK DRIVER [facility] ([facility]) Comment:NEGATIVE FOR INTRAEP ITHELIAL LESION OR MALIGNANCY. Specimen Adequacy Comment 022 7:09 AM STOCK DRIVER [facility] ([facility]) Comment: Satisfactory for evaluation. ??Endocervical and/or squamous metaplastic cells (endocervical component) are present. Performed by Comment 08/22/2021 7:09 AM STOCK DRIVER [facility] ([facility]) Comment:Nella Montes, Director Marketing Communications (ASCP) Comment . 08/22/2021 7:09 AM STOCK DRIVER [facility] ([facility]) Note Comment 08/22/2021 7:09 AM STOCK DRIVER [facility] ([facility]) Comment: The Pap smear is a screening test designed to aid in the detection of premalignant and malignant conditions of the uterine cervix. ??It is not a diagnostic procedure and should not be used as the sole means of detecting cervical cancer. ??Both false-positive and false-negative reports do occur. IGLBP CPT Code Automation Comment 08/22/2021 7:09 AM STOCK DRIVER [facility] ([facility]) Comment: This liquid based ThinPrep(R) pap test was screened with the use of an image guided system. Human papillomavirus Aptima Negative Negative 08/22/2021 7:09 AM [facility] ([facility]) Comment: This nucleic acid amplification test detects fourteen high-risk HPV types (16,18,31,33,35,39,45,51,52,56,58,59,66,68) without differentiation. Pathology/Cytolo gy ENTIRE ENDOCERVIX / Unknown Collection / Unknown 08/19/2021 11:34 AM STOCK DRIVER 08/19/2021 12:41 PM STOCK DRIVER Narrative [facility] ([facility]) - 08/22/2021 7:09 AM STOCK DRIVER Performed at: ??01 - [facility] ??[id number] New Vehicle Sales Consultant: Stephanie Lemus MD, Phone: ??[phone] Performed at: ??02 - [facility] ??[id number] New Vehicle Sales Consultant: Stephanie Lemus MD, Phone: ??[phone] Specimen Comment: No. of containers..01 ThinPrep Vial Adrienne Roth MD LAB - PATHOLOGY/CY TOLOGY ORDERABLES Performing Organization Address [facility] Co de Phone Number [facility] ([facility]) [address] [place] [address] * HIV-1 HIV-2 ANTIBODY + HIV P24 [...] - CHEMISTRY MIRI GO Performing Organization Address City/[facility]/ZIP Co de Phone Number [facility] [address] [place] [address] * HEPATITIS C RNA QUANTITATIVE (12/08/2019 7:03 AM CDT) Hepatitis C Virus Quantitation [id number] IU/mL 12/19/2019 6:08 AM CDT [facility] ([facility]) Hepatitis C Virus Log 10 6.217 log10 IU/mL 12/19/2019 6:08 AM CDT [facility] ([facility]) Test Information Comment 12/19/19 20 6:08 AM CDT [facility] ([facility]) Comment:The quantitative ran ge of this assay is 15 IU/mL to 100 million IU/mL. Blood BLOOD SPECIMEN / Unknown Lab Venipuncture / Unknown 12/08/2019 7:03 AM CDT 12/08/2019 7:48 AM CDT Narrative [facility] ([facility]) - 12/19/2019 6:08 AM CDT Performed at: ??01 - [facility] ??[id number] New Vehicle Sales Consultant: Kiran Guerra MD, Phone: ??[phone] Pattie Castellon MD LAB - CHEMISTRY ORD ERABLES [facility] ([facility]) [address] [place] [address] from Last 3 Months or Most Recently Relevant to Health Maintenance Advance Directives * Full Code (Latest Code Status on File) Date Activated Date Inactivated Comments 04/18/2020 5:26 AM 04/23/2020 5:11 PM * Full Code Date Activated Date Inactivated Comments 04/17/2020 9:19 PM 04/18/2020 5:26 AM * Full Code Date Activated Date Inactivated Comments 12/08/2019 2:09 AM 12/09/2019 7:07 PM Care Teams Deal Architect Relationship Specialty Start Date End Date Alejandro Blevins MD [address] [place] [phone] PCP - General Family Medicine 12/07/19
--- OUTSIDE RECORDS SUMMARY | 2024-08-26 22:22 | XMS_ITS | Encounter Summary ---
Author Organization [facility] Address [address] [place] [address]. [place] [address] [place] [address] Care Team Providers Care Silo Painter Name Role Phone Alejandro Blevins MD Primary Care Provider [phone] Encounter Details Date Type Department Care Team (Late st Contact Info) Description 08/04/2020 Hospital Follow-up Call [facility] [address] [place] [address] Chen Trimble RN Social History Tobacco Use Types Packs/Day Years Used Date Smoking Tobacco: Former Smokeless Tobacco: Current Comments Yes Sex and Gender Information Value Date Recorded Sex Assigned at Not on file Legal Sex Female 11:30 PM ENGINEERING AND DEVELOPMENT DIRECTOR Gender Identity Female 11/10/2021 3:09 PM CDT Sexual Orientation Straight 11/10/2021 3: 09 PM CDT COVID-19 Exposure Response Date Recorded In the last month, have you been in contact with someone who was confirmed or suspected to have Coronavirus / COVID-19? No / Unsure 08/07/2020 8:30 AM ENGINEERING AND DEVELOPMENT DIRECTOR documented as of this encounter Functional Status * RETIRED Are you deaf or do you have serious difficulty hearing Answer Date of Assessment Author Status No 07/30/2020 10:48 PM ENGINEERING AND DEVELOPMENT DIRECTOR Acti ve * RETIRED Are you blind or do you have serious difficulty seeing, even when wearing glasses? Answer Date of Assessment Author Status No 07/30/2020 10:46 PM ENGINEERING AND DEVELOPMENT DIRECTOR Acti ve * Do you have serious difficulty walking or climbing stairs? Answer Date of Assessment Author Status No 07/30/2020 10:46 PM ENGINEERING AND DEVELOPMENT DIRECTOR Nella Le RN Active * Do [...] st Contact Info) Description 09/25/2024 11:30 AM ENGINEERING AND DEVELOPMENT DIRECTOR Appointment [facility] [address] [place] [address] Roberta Alex MD [address] [place] [phone] 09/25/2024 11:40 AM ENGINEERING AND DEVELOPMENT DIRECTOR Office Visit [facility] [address] [place] [address] Roberta Alex MD [address] [place] [phone] documented as of this encounter Visit Diagnoses Not on filedocumented in this encounter Additional Health Concerns Infection Onset Date Last Indicated Resolved Time MRSA 06/05/2021 06/05/2021 documented as of this encounter Care Teams Silo Painter Relationship Specialty Start Date End Date Alejandro Blevins MD PCP - General FAMILY PRACTICE 12/10/19 documented as of this encounter
--- OUTSIDE RECORDS SUMMARY | 2024-08-26 22:22 | XMS_ITS | Clinical Summary ---
Author Organization [facility] Address [address] [place] [address]. [place] [address] [place] [address] Care Team Providers Care Sap Basis Name Role Phone Alejandro Blevins MD Primary Care Provider [phone] Allergies Active Allergy Reactions Criticality Noted Date [...] omeprazole (PRILOSEC) 20 MG capsuleIndicati ons:Acute ITP ([facility] HHS/HCC) TAKE 1 CAPSULE BY MOUTH EVERY [...] 07/30/2020 Chronic ITP (idiopathic thrombocytopenia) (CMS/H CC [facility]) 05/13/2020 Iron deficiency anemia secon brooke to inadequate dietary iron intake 12/19/2019 Other dietary vitamin B12 deficiency anemia 11/23 Hepatitis C virus infection without hepatic coma 12/08/2019 Polysubstance abuse ([facility]) 12/08/2019 Thrombocytopenia affecting ([facility]) 12/08/2019 Transaminitis 12/08/2019 Twin ([facility]) 12/08/2019 Anemia 12/07/2019 Encounters Date Type Department Care Team Description 06/19/2024 10:40 AM ADVISORY SOFTWARE ENGINEER Office Visit [facility] [place] [address] Roberta Alex MD Follow Up (Chronic ITP (idiopathic thrombocytopenia) ([facility])); Lab Results 06/19/2024 10:20 AM ADVISORY SOFTWARE ENGINEER - 06/19/2024 11:59 PM ADVISORY SOFTWARE ENGINEER Hospital Encounter [facility] [place] [address] [address] Roberta Alex MD Discharge Disposition: Home or Self Care (Routine Discharge) 06/19/2024 Orders Only [facility] [place] [address] [address] Roberta Alex MD 06/19/2024 Travel from Last [...] on file Legal Sex Female 11:30 PM ADVISORY SOFTWARE ENGINEER Gender Identity Female 11/10/2021 3:09 PM CDT Sexual Orientation Straight 11/10/2021 3: 09 PM CDT Last Filed Vital Signs Vital Sign Reading Time Taken Comments Blood Pressure 122/75 06/19/2024 10:47 AM ADVISORY SOFTWARE ENGINEER Pulse 73 06/19/2024 10:47 AM ADVISORY SOFTWARE ENGINEER Temperature 36.1 ??C (97 ??F) 06/19/2024 10: 47 AM ADVISORY SOFTWARE ENGINEER Respiratory Rate 20 06/19/2024 10:4 7 AM ADVISORY SOFTWARE ENGINEER Oxygen Saturation 99% 06/19/2024 10: 47 AM ADVISORY SOFTWARE ENGINEER Inhaled Oxygen Concentration - - Weight 77.1 kg (169 lb 15.6 oz) 024 10:47 AM ADVISORY SOFTWARE ENGINEER Height 160 cm (5' 3 ) 06/19/2024 10:47 AM ADVISORY SOFTWARE ENGINEER Body Mass Index 30.11 06/19/2024 10:47 AM ADVISORY SOFTWARE ENGINEER Plan of Treatment Upcoming Encounters Date Type Department Care Team (Late st Contact Info) Description 09/25/2024 11:30 AM ADVISORY SOFTWARE ENGINEER Appointment [facility] [address] [place] [address] Roberta Alex MD [address] [place] [phone] 09/25/2024 11:40 AM ADVISORY SOFTWARE ENGINEER Office Visit [facility] [address] [place] [address] Roberta Alex MD [address] [place] [address] [phone] Health Maintenance Due Date Last Done Comments Annual Physical 1991 DTaP, Tdap and Td Vaccines (4 - Tdap) 2007 12/23/1993, 12/27/1989, 04/07/1989, Additional history exists Hepatitis B Vaccines (1 of 3 - 19+ 3-dose series) 2007 Pneumococcal Vaccine: Pediatrics (0 to 5 Years) and At-Risk Patients (6 to 64 Years) (2 of 2 - PPSV23 or PCV20) 09/26/2014 08/01/2014 COVID-19 Vaccine (1 - season) 2024 Influenza Adult (#1) 2024 Cervical Cancer Screening Pap Smear (Age 30 to 64) Every 3 Years 08/19/2024 08/19/2021 Cervical Cancer Screening Pap with HPV Testing (Age 30 to 64) Every 5 Years 08/19/2026 08/19/2021 Cervical Cancer Screening with HPV 08/19/2026 Hepatitis C Completed 09/09/2020, 07/25, 06/11/2020, Additional history exists HPV Vaccines Aged Out No longer eligi ble based on patient's age to complete this topic Meningococcal B Vaccine Aged Out No l onger eligible based on patient's age to complete this topic Meningococcal Vaccine Aged Out No rambo marquise eligible based on patient's age to complete this topic RSV Immunizations Under 20 Months Aged Out No longer eligible based on patient's age to complete this topic Procedures Procedure Name Priority Date/Time Associated Diagnosis Comments CBC W/DIFF AUTOMATED Routine 06/19/2024 10:40 AM ADVISORY SOFTWARE ENGINEER Thrombocytopenia (CMS/HCC) from Last 3 Months Results * (ABNORMAL) CBC W/DIFF AUTOMATED (06/19/2024 10:40 AM ADVISORY SOFTWARE ENGINEER) WBC 8.99 4.00 - 10.80 x10'3/uL 06/19/2024 10:55 AM ADVISORY SOFTWARE ENGINEER [facility] RBC 4.87 4.10 - 5.40 x10'6/uL 06/19/2024 10:55 AM ADVISORY SOFTWARE ENGINEER [facility] HGB 14.1 12.0 - 16.0 G/DL 06/19/2024 10:55 AM ADVISORY SOFTWARE ENGINEER [facility] HCT 43.5 36.0 - 47.0 % 06/19/2024 10:55 AM ADVISORY SOFTWARE ENGINEER [facility] MCV 89.3 78.0 - 100.0 FL 06/19/2024 10:55 AM [facility] MCH 29.0 27.0 - 31.0 PG 06/19/2024 10:55 AM [facility] MCHC 32.4(L) 33.0 - 36.0 G/DL 06/19/2024 10:55 AM [facility] RDW 13.9 11.5 - 14.5 % 06/19/2024 10:55 AM [facility] PLT 197 150 - 350 x10'3/uL 06/19/2024 10:55 AM [facility] MPV 13.0(H) 7.4 - 10.4 FL 06/19/2024 10:55 AM [facility] CBC COMMENT NORMAL REFERENCE RANGE NOT ESTABLISHED FOR THE PROPORTIONAL LEUKOCYTE DIFFERENTIAL. 06/19/2024 10:55 AM [facility] NEUTROPHILS % 60.3 % 06/19/2024 10:55 AM [facility] LYMPHOCYTES % 26.4 % 06/19/2024 10:55 AM [facility] MONOCYTES % 5.9 % 06/19/2024 10:55 AM [facility] EOSINOPHILS % 6.3 % 06/19/2024 10:55 AM [facility] BASOPHILS % 0.9 % 06/19/2024 10:55 AM [facility] IMMATURE GRANS % 0.2 % 06/19/20 10:55 AM [facility] NRBC % 0.0 % 06/19/2024 10:55 AM [facility] ABS. NEUTROPHILS 5.42 1.60 - 8.30 x10'3/uL 06/19/2024 10:55 AM [facility] ABS. LYMPHOCYTES 2.37 0.80 - 4.70 x10'3/uL 06/19/2024 10:55 AM [facility] ABS. MONOCYTES 0.53 0.00 - 1.50 x10'3/uL 06/19/2024 10:55 AM [facility] ABS. EOSINOPHILS 0.57(H) 0.00 - 0.40 x10'3/uL 06/19/2024 10:55 AM ADVISORY SOFTWARE ENGINEER [facility] ABS. BASOPHILS 0.08 0.00 - 0.20 x10'3/uL 06/19/2024 10:55 AM ADVISORY SOFTWARE ENGINEER [facility] ABS. IMMATURE GRANULOCYTES 0.02 0.00 - 0.03 x10'3/uL 06/19/2024 10:55 AM ADVISORY SOFTWARE ENGINEER [facility] ABS. NUCLEATED RBC'S 0.00 0.00 - 0.01 x10'3/uL 06/19/2024 10:55 AM ADVISORY SOFTWARE ENGINEER [facility] 06/19/2024 10:4 0 AM ADVISORY SOFTWARE ENGINEER Roberta Alex MD LABORATORY Final Result [facility] [address] [place] [id number], from Last 3 Months Additional Health Concerns Infection Onset Date Last Indicated MRSA 06/05/2021 06/05/[address] [place] [place] [address] Advance Directives * Full Code (Latest Code Status on File) Date Activated Date Inactivated Comments 07/30/2020 3:42 PM 07/31/2020 6:41 PM Care Teams Sap Basis Relationship Specialty Start Date End Date Alejandro Blevins MD PCP - General FAMILY PRACTICE 12/10/19
--- OUTSIDE RECORDS SUMMARY | 2024-08-26 22:23 | XMS_ITS | Referral Summary ---
Author Organization [facility] Address [address] [place] [address] Care Team Providers Care Correctional Program Specialist Name Role Phone Alejandro Blevins MD Primary Care Provider [phone] Source Comments [facility],non-owned Affiliates and Associated Physician Practices is amultiple site organization consisting of ambulatory clinics and hospital sitesin [place], [place], [place] and [place]. This disclosure is being madepursuant to the Care Everywhere program and may not contain all information available regarding this patient. Last updated 18.[facility] Allergies Active Allergy Reactions Criticality Noted [...] migh t be different from the original. [employer] form completed. Diapers given. 06/02/2020 [...] Comments Blood Pressure 108/71 08/19/2021 11:05 AM COLOR TESTER Pulse 74 08/19/2021 11:05 AM COLOR TESTER Temperature 36.2 ??C (97.2 ??F) 06/02/2020 8:43 [...] IG LB+HPV APTIMA Routine 08/19/2021 11:34 AM COLOR TESTER High grade squamous intraepithelial lesion (HGSIL), grade 3 WIL, on biopsy of cervix HIV-1 HIV-2 ANTIBODY + HIV P24 AG PANEL STAT 04/17/2020 8:57 PM CDT HEPATITIS C RNA QUANTITATIVE Routine 12/08/2019 7:03 AM CDT Anemia, unspecified type from Last 3 Months or Most Recently Relevant to Health Maintenance Results * PAP IG LB+HPV APTIMA (08/19/2021 11:34 AM COLOR TESTER) Diagnosis Comment 08/22/2021 7:09 AM COLOR TESTER [facility] ([facility]) Comment:NEGATIVE FOR INTRAEP ITHELIAL LESION OR MALIGNANCY. Specimen Adequacy Comment 022 7:09 AM COLOR TESTER [facility] ([facility]) Comment: Satisfactory for evaluation. ??Endocervical and/or squamous metaplastic cells (endocervical component) are present. Performed by Comment 08/22/2021 7:09 AM COLOR TESTER [facility] ([facility]) Comment:Nella Montes, Tissue Inserter (ASCP) Comment . 08/22/2021 7:09 AM COLOR TESTER [facility] ([facility]) Note Comment 08/22/2021 7:09 AM COLOR TESTER [facility] ([facility]) Comment: The Pap smear is a screening test designed to aid in the detection of premalignant and malignant conditions of the uterine cervix. ??It is not a diagnostic procedure and should not be used as the sole means of detecting cervical cancer. ??Both false-positive and false-negative reports do occur. IGLBP CPT Code Automation Comment 08/22/2021 7:09 AM COLOR TESTER [facility] ([facility]) Comment: This liquid based ThinPrep(R) pap test was screened with the use of an image guided system. Human papillomavirus Aptima Negative Negative 08/22/2021 7:09 AM COLOR TESTER [facility] ([facility]) Comment: This nucleic acid amplification test detects fourteen high-risk HPV types (16,18,31,33,35,39,45,51,52,56,58,59,66,68) without differentiation. Pathology/Cytolo gy ENTIRE ENDOCERVIX / Unknown Collection / Unknown 08/19/2021 11:34 AM COLOR TESTER 08/19/2021 12:41 PM COLOR TESTER Narrative [facility] ([facility]) - 08/22/2021 7:09 AM COLOR TESTER Performed at: ??01 - [facility] [place] ??[id number] Furnace Fitter: Stephanie Lemus MD, Phone: ??[phone] Performed at: ??02 - [facility] [place], [place] ??[id number] Furnace Fitter: Stephanie Lemus MD, Phone: ??[phone] Specimen Comment: No. of containers..01 ThinPrep Vial Adrienne Roth MD LAB - PATHOLOGY/CY TOLOGY ORDERABLES [facility] ([facility]) [address] [place] [address] * HIV-1 HIV-2 ANTIBODY + HIV P24 AG PANEL (04/17/2020 8:57 PM CDT) [facility] HIV1/2 Ab + P24 Ag Non Reactive Non Reactive 04/17/2020 10:02 PM CDT [facility] Blood BLOOD SPECIMEN / Unknown Venipuncture / Unknown 04/17/2020 8:57 PM CDT 04/17/2020 9:09 PM CDT Narrative [facility] - 04/17/2020 10:02 PM CDT No Laboratory evidence of HIV infection. Mayuri Norton MD LAB - CHEMISTRY [place]IR[place] GO [facility] [address] [place] [address] * HEPATITIS C RNA QUANTITATIVE (12/08/2019 7:03 AM CDT) [facility] Hepatitis C Virus Quantitation [id number] IU/mL 12/19/2019 6:08 AM CDT [facility] ([facility]) Hepatitis C Virus Log 10 6.217 log10 IU/mL 12/19/2019 6:08 AM CDT [facility] ([facility]) Test Information Comment 12/19/19 6:08 AM CDT [facility] ([facility]) Comment:The quantitative ran ge of this assay is 15 IU/mL to 100 million IU/mL. Blood BLOOD SPECIMEN / Unknown Lab Venipuncture / Unknown 12/08/2019 7:03 AM CDT 12/08/2019 7:48 AM CDT Narrative [facility] ([facility]) - 12/19/2019 6:08 AM CDT Performed at: ??01 - [facility] [address] ??[id number] Furnace Fitter: Kiran Guerra MD, Phone: ??[phone] Pattie Castellon MD LAB - CHEMISTRY ORD ERABLES [facility] ([facility]) [address] [place] [address] from Last 3 Months or Most Recently Relevant to Health Maintenance Advance Directives * Full Code (Latest Code Status on File) Date Activated Date Inactivated Comments 04/18/2020 5:26 AM 04/23/2020 5:11 PM * Full Code Date Activated Date Inactivated Comments 04/17/2020 9:19 PM 04/18/2020 5:26 AM * Full Code Date Activated Date Inactivated Comments 12/08/2019 2:09 AM 12/09/2019 7:07 PM Care Teams Correctional Program Specialist Relationship Specialty Start Date End Date Alejandro Blevins MD [address] [place] [address] PCP - General Family Medicine 12/07/19
--- OUTSIDE RECORDS SUMMARY | 2024-08-26 22:23 | XMS_ITS | Encounter Summary ---
Author Organization [facility] Address [address] [place] [address]. [place] [address] [place] [address] Care Team Providers Care Gas Meter Installer Helper Name Role Phone Alejandro Blevins MD Primary Care Provider [phone] Encounter Details Date Type Department Care Team (Late st Contact Info) Description 10/08/2017 Abstract [facility] [address] [place] [address] , Generic ConversionMD Social History Tobacco Use Types Packs/Day Years Used Date Smoking Tobacco: Never Assessed Comments Unknown Sex and Gender Information Value Date Recorded Sex Assigned at Not on file Legal Sex Female 11:30 PM RUG BACKING STENCILER Gender Identity Female 11/10/2021 3:09 PM CDT Sexual Orientation Straight 11/10/2021 3: 09 PM CDT documented as of this encounter Plan of Treatment Upcoming Encounters Date Type Department Care Team (Late st Contact Info) Description 09/25/2024 11:30 AM RUG BACKING STENCILER Appointment [facility] [address] [place] [address] Roberta Alex MD [address] [place] [phone] 09/25/2024 11:40 AM RUG BACKING STENCILER Office Visit [facility] [place] [address] Roberta Alex MD [address] [place] [phone] documented as of this encounter Visit Diagnoses Not on filedocumented in this encounter Additional Health Concerns Infection Onset Date Last Indicated Resolved Time COVID-19 Rule Out 07/30/2020 07/30/2020 07/30/2020 4:31 PM RUG BACKING STENCILER MRSA 06/05/2021 06/05/2021 documented as of this encounter Care Teams Gas Meter Installer Helper Relationship Specialty Start Date End Date Alejandro Blevins MD PCP - General FAMILY PRACTICE 12/10/19 documented as of this encounter
--- OUTSIDE RECORDS SUMMARY | 2024-08-26 22:23 | XMS_ITS | Patient Health Summary ---
Author Organization [facility] Address [address] [place] [address] Care Team Providers Care Picker And Packer Name Role Phone Alejandro Blevins MD Primary Care Provider [phone] Note from [facility],non-owned Affiliates and Associated Physician Practices is amultiple site organization consisting of ambulatory clinics and hospital sitesin [place], [place], [place] and [place]. This disclosure is being madepursuant to the Care Everywhere program and may not contain all information available regarding this patient. Last updated 18.[facility] Allergies * Bee Venom(Anaphylaxis) -High Criticality [...] Comments Blood Pressure 108/71 08/19/2021 11:05 AM LAMBSKIN TRIMMER Pulse 74 08/19/2021 11:05 AM LAMBSKIN TRIMMER Temperature 36.2 ??C (97.2 ??F) 06/02/2020 8:43 [...] 04/18/2020) * PT PTT PANEL(Performed 04/18/2020) * [id number] ANTIBODY(Performed 04/18/2020) * PRMFAA70 ACTIVITY(Performed 04/18/2020) * FIBRINOGEN ACTIVITY(Performed 04/18/2020) * GLUCOSE - POINT OF CARE(Performed 04/18/2020) * PATHOLOGY PERIPHERAL SMEAR REVIEW(Performed 04/18/2020) Performed for Twin delivery by ([facility]) * XR CHEST 1VW PORTABLE(Performed 04/18/2020) Performed [...] (STL)(Performed 04/18/2020) Performed for Twin delivery by ([facility]) * HEMOGLOBIN A1C(Performed 04/18/2020) * COMPREHENSIVE METABOLIC [...] (EMERGENCY)(Performed 04/18/2020) Performed for Twin delivery by ([facility]) * TRANSFUSE PLATELET PHERESIS UNIT(S)(Performed 04/18/2020) * [...] REVIEW(Performed 04/17/2020) Performed for Twin delivery by ([facility]) * PREPARE RBC LEUKOREDUCED UNIT(Performed 04/17/2020) * [...] in third trimester, unspecified multiple gestation type ([facility]) * SLIDE SCAN HEMATOLOGY(Performed 04/17/2020) Performed for Twin gestation in third trimester, unspecified multiple gestation type ([facility]) * CBC W AUTO DIFFERENTIAL(Performed 04/17/2020) Performed for Twin gestation in third trimester, unspecified multiple gestation type ([facility]) * SONOGRAM - COMPLETE(Performed 01/23/2020) Performed for Evaluate anatomy not seen on prior sonogram * URINE DRUG SCREEN IMMUNOASSAY(Performed 01/23/2020) Performed for Supervision of high risk in second trimester ([facility]) * CULTURE URINE(Performed 01/23/2020) Performed for Supervision of high risk in second trimester ([facility]), Other iron deficiency anemia, Chronic hepatitis C without hepatic coma ([facility]) * HIV-1 HIV-2 ANTIBODY + HIV P24 AG PANEL(Performed 12/19/2019) Performed for Dichorionic diamniotic twin in second trimester ([facility]) * RPR W REFLEX TO TITER (MONITOR)(Performed 12/19/2019) Performed for Dichorionic diamniotic twin in second trimester ([facility]) * SONOGRAM - COMPLETE(Performed 12/19/2019) * IMAGING/RADIOLOGY/XRAY RESULTS ORDER(Performed 12/11/2019) * RUBELLA ANTIBODY IGG(Performed 12/09/2019) Performed for Dichorionic diamniotic twin in second trimester ([facility]) * CBC W AUTO DIFFERENTIAL(Performed 12/09/2019) Performed [...] PAP IG LB+HPV APTIMA (08/19/2021 11:34 AM LAMBSKIN TRIMMER) Diagnosis Comment 08/22/2021 7:09 AM LAMBSKIN TRIMMER [facility] Comment:NEGATIVE FOR INTRAEP ITHELIAL LESION OR MALIGNANCY. Specimen Adequacy Comment 022 7:09 AM LAMBSKIN TRIMMER [facility] Comment: Satisfactory for evaluation. ??Endocervical and/or squamous metaplastic cells (endocervical component) are present. Performed by Comment 08/22/2021 7:09 AM LAMBSKIN TRIMMER [facility] Comment:Nella Montes, Flexible Nanny (ASCP) Comment . 08/22/2021 7:09 AM LAMBSKIN TRIMMER [facility] Note Comment 08/22/2021 7:09 AM LAMBSKIN TRIMMER [facility] Comment: The Pap smear is a screening test designed to aid in the detection of premalignant and malignant conditions of the uterine cervix. ??It is not a diagnostic procedure and should not be used as the sole means of detecting cervical cancer. ??Both false-positive and false-negative reports do occur. IGLBP CPT Code Automation Comment 08/22/2021 7:09 AM LAMBSKIN TRIMMER [facility] Comment: This liquid based ThinPrep(R) pap test was screened with the use of an image guided system. Human papillomavirus Aptima Negative Negative 08/22/2021 7:09 AM LAMBSKIN TRIMMER [facility] Comment: This nucleic acid amplification test detects fourteen high-risk HPV types (16,18,31,33,35,39,45,51,52,56,58,59,66,68) without differentiation. Pathology/Cytolo gy ENTIRE ENDOCERVIX / Unknown Collection / Unknown 08/19/2021 11:34 AM LAMBSKIN TRIMMER 08/19/2021 12:41 PM LAMBSKIN TRIMMER Narrative [facility] - 08/22/2021 7:09 AM LAMBSKIN TRIMMER Performed at: ??01 - [facility] [address] ??[id number] Assistant Professor Of Spanish: Stephanie Lemus MD, Phone: ??[phone] Performed at: ??02 - [facility] [address] ??[id number] Assistant Professor Of Spanish: Stephanie Lemus MD, Phone: ??[phone] Specimen Comment: No. of containers..01 ThinPrep Vial Adrienne Roth MD LAB - PATHOLOGY/CY TOLOGY ORDERABLES Performing Organization Address City/State/[facility] Co de Phone Number [facility] ([facility] [address] [place] [address] * PATHOLOGY TISSUE EXAM (STL) (02/18/2021 1:41 PM CDT) Only the most recent of3 resultswithin the time period is included. Case Report Surgical Pathology Report ? Case: [id number] ? 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 02/20/2021 6:34 PM [facility] Gross Description The requisition and specimens [...] B2. Received in formalin, specimen C endocrvx lining scrubber consists of a white-jean-baptiste brush with minimally attached mucoid, brown-jean-baptiste soft tissue measuring 0.5 x 0.5 by less than 0.1 cm submitted in toto in cassette C1. AR 02/20/2021 6:34 PM [facility] Microscopic Description Microscopic examination substantiates [...] no intact epithelium. 02/20/2021 6:34 PM CDT [facility] Disclaimer All histochemical and/or immunohistochemical results [...] interpreted with caution. 02/20/2021 6:34 PM CDT [facility] Embedded Images 02/20/2021 6:34 PM CDT [facility] Pathology/Cytology SPECIMEN FROM LESION OF UTERINE [...] Roth MD LAB - PATHOLOGY/CY TOLOGY ORDERABLES [facility] [address] [place] [address] * HCG URINE QUALITATIVE - POCT (IP) INTERFACED (02/18/2021 11:48 AM CDT) Only the most recent of2 resultswithin the time period is included. HCG Qual Urine Negative Negative 02/18/2021 11:53 AM CDT [facility] Urine URINE / Unknown 02/18/2021 1 1:48 AM CDT 02/18/2021 11:53 AM CDT Adrienne Roth MD LAB - POINT OF CAR E ORDERABLES [facility] [address] [place] [address] * (ABNORMAL) PAP LB HPV HR DNA (05/12/2020 12:08 PM CDT) Diagnosis Comment(A) 05/19/2020 12:08 PM CDT [facility] Comment: EPITHELIAL CELL ABNORMALITY. ATYPICAL SQUAMOUS CELLS, CANNOT EXCLUDE HIGH-GRADE SQUAMOUS INTRAEPITHELIAL LESION (ASC-H). Recommendation Comment(A) 05/19/2020 12:08 PM CDT [facility] Comment:Suggest colposcopy a nd biopsy if indicated. Specimen Adequacy Comment 020 12:08 PM CDT [facility] Comment: Satisfactory for evaluation. ??Endocervical and/or squamous metaplastic cells (endocervical component) are present. Performed by Comment 05/19/2020 12:08 PM CDT [facility] Comment:Kate Turner, Cyto technologist (ASCP) Electronically Signed by Comment 05/19/2020 12:08 PM CDT [facility] Comment:Cyndee Howard MD, Pa thologist Comment . 05/19/2020 12:08 PM CDT [facility] Pathologist Provided ICD10 Comment 05/19/2020 12:08 PM CDT [facility] Comment:R87.611 Note Comment 05/19/2020 12:08 PM CDT [facility] Comment: The Pap smear is a screening test designed to aid in the detection of premalignant and malignant conditions of the uterine cervix. ??It is not a diagnostic procedure and should not be used as the sole means of detecting cervical cancer. ??Both false-positive and false-negative reports do occur. Human papillomavirus High Risk Positive(A ) Negative 05/19/2020 12:08 PM CDT [facility] Comment: This nucleic acid amplification high-risk HPV test detects thirteen high-risk types (16,18,31,33,35,39,45,51,52,56,58,59,68) without differentiation. Pathology/Cytolo gy PART OF UTERINE CERVIX / Unknown Collection / Unknown 05/12/2020 12:08 PM CDT 05/12/2020 12:22 PM CDT Narrative [facility]) - 05/19/2020 12:08 PM CDT Performed at: ??01 - [facility] [address] ??[id number] Assistant Professor Of Spanish: Stephanie Lemus MD, Phone: ??[phone] Performed at: ??02 - [facility] [address] ??[id number] Assistant Professor Of Spanish: Stephanie Lemus MD, Phone: ??[phone] Specimen Comment: Source.............Cervix;Endocervix Specimen Comment: No. of containers..01 ThinPrep Vial Tuan Platt MD LAB - PATHOLOGY/CYTO LOGY ORDERABLES [facility] [address] [place] [address] * GLUCOSE PROTEIN KETONE URINE - POINT [...] CA RE ORDERABLES [facility] [address] [phone] * HCG URINE QUALITATIVE - POINT OF CARE (05/12/2020 10:33 AM CDT) HCG Qual Urine Negative Negative [facility] QC Verified Yes Yes [facility] POC T TESTING Urine URINE / Unknown 05/12/2020 1 0:33 AM CDT Lola Olson MD LAB - POINT OF CA RE ORDERABLES [facility] [address] [phone] * CARDIAC RHYTHM STRIP ORDER (04/24/2020 1:36 [...] 153 - 416 x10E9/L 04/23/2020 6:44 AM [facility] RDW-CV 19.6(H) 12.1 - 14.9 % 04/23/2020 6:44 AM [facility] MPV 10.8 9.4 - 12.9 fl 04/23/2020 6:44 AM [facility] Neutrophils % 79.2(H) 44.0 - 73.0 % 04/23/2020 6:44 AM [facility] Lymphocytes % 11.4(L) 20.0 - 43.0 % 04/23/2020 6:44 AM [facility] Monocytes % 5.2 5.0 - 13.0 % 04/23/2020 6:44 AM [facility] Eosinophils % 0.1 0.0 - 6.0 % 04/23/2020 6:44 AM [facility] Basophils % 0.2 0.0 - 2.0 % 04/23/2020 6:44 AM [facility] Immature Granulocytes 3.9(H) 0 - 1 % 04/23/2020 6:44 AM [facility] Neutrophil Absolute 12.50(H) 2.01 - 7.14 x10E9/L 04/23/2020 6:44 AM [facility] Lymphocytes Absolute 1.80 1.07 - 3.94 x10E9/L 04/23/2020 6:44 AM [facility] Monocytes Absolute 0.82 0.26 - 1.07 x10E9/L 04/23/2020 6:44 AM [facility] Eosinophils Absolute 0.02 0 - 0.47 x10E9/L 04/23/2020 6:44 AM [facility] Basophils Absolute 0.03 0 - 0.08 x10E9/L 04/23/2020 6:44 AM [facility] Immature Granulocytes Absolute 0.62(H) 0.00 - 0.06 x10E9/L 04/23/2020 6:44 AM [facility] nRBC Auto 4 /100 WBC 04/23/2020 6:44 AM [facility] Blood BLOOD SPECIMEN / Unknown Lab Venipuncture / Unknown 04/23/2020 6:01 AM CDT 04/23/2020 6:30 AM CDT Maikel Ring MD LAB - HEMATOLOGY ORDERABLES [facility] [address] [place] [address] * (ABNORMAL) COMPREHENSIVE METABOLIC PANEL (04/23/2020 6:01 AM CDT) Only the most recent of7 resultswithin the time period is included. Glucose 82 70 - 105 mg/dL 04/23/2020 7:01 AM [facility] Sodium 135(L) 136 - 145 mmol/L 04/23/2020 7:01 AM [facility] Potassium 3.8 3.5 - 5.1 mmol/L 04/23/2020 7:01 AM [facility] Chloride 102 98 - 107 mmol/L 04/23/2020 7:01 AM [facility] CO2 25 23 - 31 mmol/L 04/23/2020 7:01 AM [facility] Calcium 7.6(L) 8.4 - 10.4 mg/dL 04/23/2020 7:01 AM [facility] Anion Gap 8 8 - 16 mmol/L 04/23/2020 7:01 AM [facility] BUN 14 7 - 18.7 mg/dL 04/23/2020 7:01 AM [facility] Creatinine 0.60 0.57 - 1.11 mg/dL 04/23/2020 7:01 AM [facility] Alkaline Phosphatase 112 40 - 150 U/L 04/23/2020 7:01 AM [facility] ALT 29 0 - 61 U/L 04/23/2020 7:01 AM [facility] AST 34 5 - 34 U/L 04/23/2020 7:01 AM [facility] Protein Total 5.7(L) 6.4 - 8.3 gm/dL 04/23/2020 7:01 AM [facility] Albumin 2.2(L) 3.5 - 5.2 gm/dL 04/23/2020 7:01 AM [facility] Bilirubin Total 0.5 0.2 - 1.0 mg/dL 04/23/2020 7:01 AM [facility] eGFR by MDRD >60 >60 mL/min/1.7 3m2 04/23/2020 7:01 AM CDT [facility] eGFR by MDRD >60 >60 mL/min/1.7 3m2 04/23/2020 7:01 AM CDT [facility] Blood BLOOD SPECIMEN / Unknown Lab Venipuncture / Unknown 04/23/2020 6:01 AM CDT 04/23/2020 6:30 AM CDT Shira Gracia MD LAB - CHEMISTRY ORD ERABLES Performing Organization Address City/[facility]/ZIP Co de Phone Number [facility] [address] [place] [address] * PREPARE FFP UNIT(S), 1 Units (04/21/2020 6:41 AM CDT) Only the most recent of2 resultswithin the time period is included. Unit Description Thawed Plasma 5D [facility] Unit ABO AB [facility] Unit Rh POS [facility] Product Number [id number] [facility] Unit Donor # [id number] [facility] LAB Unit Status transfused [facility] Product Code [id number] [facility] Blood Type Barcode 8400 [facility] Expiration Date [id number] [facility] Blood Bank BLOOD SPECIMEN / Unknown 04/21/2020 6:41 AM CDT 04/21/2020 6:48 AM CDT Marisa James MD LAB - BLOOD BANK ORD ERABLES Performing Organization Address City/[facility]/ZIP Co de Phone Number [facility] [address] [place], [place] [phone] [place] [address] * TYPE + SCREEN PANEL (04/21/2020 6:41 [...] ERABLES [facility] [address] [phone] * (ABNORMAL) RENAL FUNCTION PANEL (04/21/2020 6:41 AM CDT) Only the most recent of3 resultswithin the time period is included. Glucose 118(H) 70 - 105 mg/dL 04/21/2020 7:46 AM [facility] Sodium 133(L) 136 - 145 mmol/L 04/21/2020 7:46 AM [facility] Potassium 3.0(L) 3.5 - 5.1 mmol/L 04/21/2020 7:46 AM [facility] Chloride 101 98 - 107 mmol/L 04/21/2020 7:46 AM [facility] CO2 26 23 - 31 mmol/L 04/21/2020 7:46 AM [facility] Calcium 6.9(LL) 8.4 - 10.4 mg/dL 04/21/2020 7:46 AM [facility] Anion Gap 6(L) 8 - 16 mmol/L 04/21/2020 7:46 AM [facility] BUN 13 7 - 18.7 mg/dL 04/21/2020 7:46 AM T [facility] Creatinine 0.65 0.57 - 1.11 mg/dL 04/21/2020 7:46 AM [facility] Albumin 2.1(L) 3.5 - 5.2 gm/dL 04/21/2020 7:46 AM [facility] Phosphorus 3.6 2.3 - 4.7 mg/dL 04/21/2020 7:46 AM [facility] eGFR by MDRD >60 >60 mL/min/1.7 3m2 04/21/2020 7:46 AM CDT [facility] eGFR by MDRD >60 >60 mL/min/1.7 3m2 04/21/2020 7:46 AM [facility] Blood BLOOD SPECIMEN / Unknown Lab Venipuncture / Unknown 04/21/2020 6:41 AM CDT 04/21/2020 6:48 AM CDT Clem Brown MD LAB - CHEMISTRY MIRI GO Performing Organization Address City/[facility]/ZIP Co de Phone Number [facility] [address] [place] [address] [phone] * (ABNORMAL) MAGNESIUM BLOOD (04/21/2020 6:41 AM CDT) Only the most recent of4 resultswithin the time period is included. Magnesium 4.6(H) 1.6 - 2.6 mg/dL 04/21/2020 7:38 AM CDT [facility] Blood BLOOD SPECIMEN / Unknown Lab Venipuncture / Unknown 04/21/2020 6:41 AM CDT 04/21/2020 6:48 AM CDT Clem Brown MD LAB - CHEMISTRY MIRI GO Performing Organization Address [facility] Co de Phone Number [facility] [address] [place] [phone] * (ABNORMAL) LDH BLOOD (04/21/2020 6:41 AM CDT) Only the most recent of4 resultswithin the time period is included. LDH 449(H) 125 - 220 U/L 04/21/2020 7:38 AM CDT [facility] Blood BLOOD SPECIMEN / Unknown Lab Venipuncture / Unknown 04/21/2020 6:41 AM CDT 04/21/2020 6:48 AM CDT Turner Castillo MD LAB - CHEMISTRY MIRI GO Performing Organization Address City/[facility] Co de Phone Number [facility] [address] [place] [address] [phone] * HAPTOGLOBIN (04/21/2020 6:41 AM CDT) Only the most recent of4 resultswithin the time period is included. Haptoglobin 42 30 - 200 mg/dL 04/21/2020 7:38 AM CDT [facility] Blood BLOOD SPECIMEN / Unknown Lab Venipuncture / Unknown 04/21/2020 6:41 AM CDT 04/21/2020 6:48 AM CDT Turner Castillo MD LAB - CHEMISTRY MIRI GO [facility] Organization Address City/State/ZIP Co de Phone Number [facility] [address] [place], [place] [phone] * (ABNORMAL) DIFFERENTIAL MANUAL (04/21/2020 4:45 AM [...] 04/21/2020 7:18 AM CDT [facility] [place] Manual 1(H) <=0 % 04/21/2020 7:18 AM [...] LAB - HEMATOLOGY ORDERABLES Performing Organization Address City/State/[facility] Co de Phone Number [facility] [address] [place] [address] * XR CHEST 2VW (04/20/2020 5:11 PM [...] MIRI GO Performing Organization Address City/[facility] Co de Phone Number [facility] [address] [place] [phone] * AST BLOOD (04/20/2020 10:42 AM CDT) AST 27 5 - 34 U/L 04/20/2020 2:26 PM CDT [facility] Blood BLOOD SPECIMEN / Unknown Lab Venipuncture / Unknown 04/20/2020 10:42 AM CDT 04/20/2020 10:42 AM CDT Ron Quinn MD LAB - CHEMISTRY RIGOBERTOHéctor GO Performing Organization Address [facility] Co de Phone Number [facility] [address] [place] [address] * PTT (04/20/2020 10:41 AM CDT) Only the most recent of5 resultswithin the time period is included. Pathologist [facility] PTT 30.7 23.0 - 38.4 sec 04/20/2020 11:00 AM CDT [facility] Blood BLOOD SPECIMEN / Unknown Lab Venipuncture / Unknown 04/20/2020 10:41 AM CDT 04/20/2020 10:41 AM CDT Narrative [facility] - 04/20/2020 11:00 AM CDT Heparin Therapeutic Range for PTT: ??71.0 - 109.0 seconds. Turner Castillo MD LAB - COAGULATION OR DERABLES Performing Organization Address [facility] Co de Phone Number [facility] [address] [place] [address] * PT-INR (04/20/2020 10:41 AM CDT) Only the most recent of5 resultswithin the time period is included. Pathologist [facility] PT 12.3 12.1 - 14.8 sec 04/20/2020 [...] - COAGULATION OR DERABLES Performing Organization Address [facility] Co de Phone Number [facility] [address] [place] [address] * TRANSFUSE RED BLOOD CELL LEUKOREDUCED UNIT(S) [...] POINT OF CARE ORDERABLES Performing Organization Address [facility] de Phone Number [facility] [address] [place] [address] * LACTIC ACID BLOOD (04/19/2020 3:51 AM CDT) Only the most recent of4 resultswithin the time period is included. Lactic Acid 1.2 0.5 - 2.2 mmol/L 04/19/2020 4:27 AM CDT [facility] Blood BLOOD SPECIMEN / Unknown Venipuncture / Unknown 04/19/2020 3:51 AM CDT 04/19/2020 4:05 AM CDT Maikel Ring MD LAB - CHEMISTRY O RDERABLES Performing Organization Address [facility] Co de Phone Number [facility] [address] [place], [place] [phone] * PT PTT PANEL (04/19/2020 3:50 AM [...] - COAGULATION OR DERABLES Performing Organization Address [facility] Co de Phone Number [facility] [address] [place] [phone] * TRANSFUSE RED BLOOD CELL LEUKOREDUCED UNIT(S) [...] 12:30 PM CDT [facility] RESP THERAPY Contract Law Specialist ID [id number] 04/18/2020 12:30 PM CDT [facility] Blood, arterial ARTERIAL BLOOD SPECIMEN / Unknown 04/18/2020 12:21 PM CDT 04/18/2020 12:21 PM CDT Clem Bronw MD LAB - BLOOD GASES OR DERABLES [facility] [address] [place] [address] * TRANSFUSE RED BLOOD CELL LEUKOREDUCED UNIT(S) [...] Dave MD LAB - HEMATOLOGY ORD ERABLES [facility] [address] [place] [address] * VITAMIN B12 (04/18/2020 9:30 AM CDT) [...] City/[facility]/ZIP Co de Phone Number [facility] [address] [place] [address] * IMMUNOGLOBULINS IGG/IGM/IGA PANEL (04/18/2020 9:30 AM CDT) Pathologist [facility] IgA 82 65 - 421 mg/dL 04/18/2020 3:[address] [facility] IgG 1,629 552-1,631 mg/dL 04/18/2020 3:[address] [facility] IgM 149 33 - 293 mg/dL 04/18/2020 3:[address] [facility] Blood BLOOD SPECIMEN / Unknown Venipuncture / Unknown 04/18/2020 9:30 AM CDT 04/18/2020 9:42 AM CDT Heraclio Dave MD LAB - CHEMISTRY MIRI GO Performing Organization Address [facility] Co de Phone Number [facility] [address] [place] [phone] * (ABNORMAL) [id number] ANTIBODY (04/18/2020 9:29 AM CDT) [facility] [id number] Antibody 15(H) <12 Units/mL 04/22/2020 5:07 PM CDT [facility] Comment: Results for this test are for research purposes only by the assay's qc scientist. ??The performance characteristics of this product have not been established. ??Results should not be used as a diagnostic procedure without confirmation of the diagnosis by another medically established diagnostic product or procedure. Blood BLOOD SPECIMEN / Unknown Venipuncture / Unknown 04/18/2020 9:29 AM CDT 04/18/2020 9:42 AM CDT Narrative [facility] - 04/22/2020 5:07 PM CDT Performed at: ??01 - [facility] ??[id number] Assistant Professor Of Spanish: Kiran Guerra MD, Phone: ??[phone] Heraclio Dave MD LAB - COAGULATION OR DERABLES Performing Organization Address City/[facility]/ZIP Co de Phone Number [facility]) [address] [place] [address] * REF LAB COMMENT (04/18/2020 9:29 AM CDT) Comment Comment 04/20/2020 7:06 PM CDT [facility] Comment: Severe deficiency of YADPCF43 (less than 10% activity) is a relatively specific finding in patients with a clinical diagnosis of either hereditary or acquired thrombotic thrombocytopenic purpura (TTP). Normal to moderately reduced WSLCHW69 activity results do not exclude a diagnosis of TTP. Conditions that could have LQDAYO23 activity greater than 10% include hemolytic uremic syndrome (HUS), atypical hemolytic uremic syndrome (aHUS), and other thrombotic microangiopathies associated with hematopoietic stem cell and solid organ transplantation, liver disease, DIC, sepsis, , or effects of certain medications (eg, clopidogrel, cyclosporine, mitomycin C, quinine). Blood BLOOD SPECIMEN / Unknown Venipuncture / Unknown 04/18/2020 9:29 AM CDT 04/18/2020 9:42 AM CDT [facility] ([facility]) - 04/20/2020 7:06 PM CDT Performed at: ??01 - [address] ??[id number] Assistant Professor Of Spanish: Kiran Guerra MD, Phone: ??[phone] Heraclio Dave MD LAB - CHEMISTRY ORDE RABLES Performing Organization Address City/[facility]/ZIP Co de Phone Number [facility]) [address] [place] [address] * (ABNORMAL) [id number] ACTIVITY (04/18/2020 9:29 AM CDT) [id number] Activity 41.7(L) >66.8 % 04/20/2020 7:06 PM CDT [facility] ([facility]) Blood BLOOD SPECIMEN / Unknown Venipuncture / Unknown 04/18/2020 9:29 AM CDT 04/18/2020 9:42 AM CDT Narrative [facility] ([facility]) - 04/20/2020 7:06 PM CDT Test(s) [id number] Activity was developed and its performance characteristics determined by [facility]. It has not been cleared or approved by the Food and Drug Administration. Performed at: ??01 - [facility] [address] ??[id number] Assistant Professor Of Spanish: Kiran Guerra MD, Phone: ??[phone] Heraclio Dave MD LAB - COAGULATION OR DERABLES [facility] ([facility]) [address] [place] [address] * BESSY DIRECT (04/18/2020 9:29 AM CDT) Direct Bessy (LANDY) NEG 04/18/2020 10:25 AM CDT [facility] Blood Bank BLOOD SPECIMEN / Unknown Venipuncture / Unknown 04/18/2020 9:29 AM CDT 04/18/2020 9:43 AM CDT Heraclio Dave MD LAB - BLOOD BANK ORD ERABLES Performing Organization Address [facility] Co de Phone Number [facility] [address] [place] [address] * FIBRINOGEN ACTIVITY (04/18/2020 9:29 AM CDT) Only the most recent of6 resultswithin the time period is included. Fibrinogen 217 200 - 400 mg/dL 04/18/2020 9:59 AM CDT [facility] Blood BLOOD SPECIMEN / Unknown Venipuncture / Unknown 04/18/2020 9:29 AM CDT 04/18/2020 9:42 AM CDT Annabella Johnosn MD LAB - COAGULATION OR DERABLES Performing Organization Address City/[facility]/ZIP Co de Phone Number [facility] [address] [place] [address] * PATHOLOGY PERIPHERAL SMEAR REVIEW (04/18/2020 8:31 AM CDT) Only the most recent of2 resultswithin the time period is included. Case Report Pathology Interpretation Report ? Case: [id number] ? Authorizing Provider: ??Heraclio Dave MD ? [...] comparison with a previous slide was requested ([id number]). Review of the morphologic and differential count [...] - PATHOLOGY/CYTO LOGY ORDERABLES Performing Organization Address City/State/[facility] Co de Phone Number [facility] [address] [place], [place] [id number] * XR CHEST 1VW PORTABLE (04/18/2020 8:15 [...] 12.1 - 14.8 sec 04/18/2020 8:29 AM [facility] 1.1 0.9 - 1.1 04/18/2020 8:29 AM CDT [facility] PTT 27.5 23.0 - 38.4 sec 04/18/2020 8:29 AM [facility] Fibrinogen 278 200 - 400 mg/dL 04/18/2020 8:29 AM [facility] D-Dimer 3.18(H) 0.27 - 0.50 ug/mL FEU 04/18/2020 8:29 AM [facility] Platelet Count 51(L) 153 - 416 x10E9/L 04/18/2020 8:29 AM [facility] Blood BLOOD SPECIMEN / Unknown Venipuncture / Unknown 04/18/2020 7:53 AM CDT 04/18/2020 8:09 AM CDT Narrative [facility] - 04/18/2020 8:29 AM CDT Conventional [...] LAB - COAGULATION OR DERABLES [facility] [place] [facility] [address] [place] [address] * (ABNORMAL) SLIDE SCAN HEMATOLOGY (04/18/2020 5:37 AM CDT) Only the most recent of3 resultswithin the time period is included. [facility] Platelet Estimation Decrease d(A) Normal, Adequate platelets 04/18/2020 7:07 AM CDT [facility] Anisocytosis 1+(A) None 04/18/2020 7:07 AM CDT [facility] Poikilocytosis 1+(A) None 04/18/2020 7:07 AM CDT [facility] Polychromasia Occasion al(A) None 04/18/2020 7:07 AM CDT [facility] Warrior Cells 1+(A) None 04/18/2020 7:07 AM CDT [facility] Blood BLOOD SPECIMEN / Unknown Venipuncture / Unknown 04/18/2020 5:37 AM CDT 04/18/2020 5:45 AM CDT Maikel Ring MD LAB - HEMATOLOGY ORDERABLES Performing Organization Address City/[facility]/ZIP Co de Phone Number [facility] [address] [place] [address] * (ABNORMAL) TRIGLYCERIDES BLOOD (04/18/2020 5:37 AM CDT) [facility] Triglycerides 160(H) <150 mg/dL 04/18/2020 8:16 AM CDT [facility] Blood BLOOD SPECIMEN / Unknown Venipuncture / Unknown 04/18/2020 5:37 AM CDT 04/18/2020 5:45 AM CDT Snehal Crowe MD LAB - CHEM ISTRY ORDERABLES [facility] [address] [place] [address] * HEMOGLOBIN A1C (04/18/2020 4:13 AM CDT) [facility] Hemoglobin A1c 5.2 4.2 - 5.6 % 04/18/2020 6:37 AM CDT [facility] Estimated Average Glucose 103 mg/dL 04/18/2020 6:37 AM CDT [facility] Blood BLOOD SPECIMEN / Unknown Venipuncture / Unknown 04/18/2020 4:13 AM CDT 04/18/2020 4:16 AM CDT Narrative [facility] - 04/18/2020 6:37 AM CDT The following cutoff levels are recommended by [place] [employer]. ?? A1c ??> 6.5% : [...] - CHEMISTRY O RDERABLES [facility] [address] [place] [address] * (ABNORMAL) BLOOD GASES CORD JEREMY (04/18/2020 3:12 AM CDT) Only the most recent of2 resultswithin the time period is included. Pathologist [facility] pH Cord Venous 6.98(LL) 7.28 - 7.40 [...] Venous 26 % 04/18/2020 3:26 AM CDT [facility] Aamir's Test N/A 04/18/2020 3:26 AM CDT [facility] Sample Site Other 04/18/2020 3:26 AM CDT [facility] Sample Type Cord Blood Venous 04/18/2020 3:26 AM CDT [facility] RESP THERAPY Contract Law Specialist ID [id number] 04/18/2020 3:26 AM CDT [facility] Notified Who jerrod apparatus operator 04/18/2020 3:26 AM CDT [facility] Notification Time 04/18/2020 03:26 04/18/2020 3:26 AM CDT [facility] Notified By octavia immigration specialist 04/18/2020 3:26 AM CDT [facility] Blood CORD BLOOD SPECIMEN / Unknown 04/18/2020 3:12 AM CDT 04/18/2020 3:12 AM CDT Afsaneh Sandoval MD LAB - BLOOD GASES OR DERABLES [facility] [address] [phone] * (ABNORMAL) BLOOD GASES CORD ARTERIAL (04/18/2020 [...] 3:27 AM CDT [facility] RESP THERAPY Contract Law Specialist ID [id number] 04/18/2020 3:27 AM CDT [facility] Notified Renea elder apparatus operator 04/18/2020 3:27 AM CDT [facility] Notification Time 04/18/2020 03:27 04/18/2020 3:27 AM CDT [facility] Notified By octavia morrissey 04/18/2020 3:27 AM CDT [facility]P [facility] Blood, arterial CORD BLOOD SPECIMEN / Unknown 04/18/2020 3:12 AM CDT 04/18/2020 3:12 AM CDT Afsaneh Sandoval MD LAB - BLOOD GASES OR DERABLES Performing Organization Address City/State/[facility] Co de Phone Number [facility] RESP [facility]ERAPY [address] [place] [address] * ETT LINE PERFORMABLE (04/18/2020 3:04 AM CDT) Narrative Ying Ro APRN-SECURED ENTRANCE MONITOR - 04/18/2020 3:04 AM CDT Ying Ro APRN-CRNA ? 04/18/2020 ??3:04 AM Endotracheal Tube Placement: ? Patient Location: OB. Intubation Event Date/Time: ??04/18/2020 2:51 AM Procedure: intubation (64414). Procedure Section: ?? Sedation: under general anesthesia. [...] Norton MD LAB - SEROLOGY ORDER CRUZITO [facility] [address] [place] [address] * HIV-1 HIV-2 ANTIBODY + [...] Norton MD LAB - CHEMISTRY MIRI GO [facility] [address] [place] [address] * (ABNORMAL) URINALYSIS REFLEX TO MICROSCOPIC NO [...] 9:18 PM CDT [facility] Specific Kegley UA 1.015 1.005 - 1.030 04/17/2020 9:18 [...] - URINALYSIS ORD ERABLES Performing Organization Address [facility] Co de Phone Number [facility] [address] [place], [place] [phone] * (ABNORMAL) URINE MICROSCOPIC ONLY (04/17/2020 8:57 [...] - URINALYSIS ORD ERABLES Performing Organization Address [facility] de Phone Number [facility] [address] [place] [address] * (ABNORMAL) RUBELLA ANTIBODY IGG (04/17/2020 8:57 [...] 7:09 AM CDT Performed at: ??01 - [facility] [address] [facility], [place], [place] ??[id number] Assistant Professor Of Spanish: Tyrone Rider PhD, Phone: ??[phone] Mayuri Norton MD LAB - SEROLOGY ORDER CRUZITO [facility] [address] [place] [address] * (ABNORMAL) CULTURE URINE (04/17/2020 8:57 PM CDT) Only the most recent of2 resultswithin the time period is included. Culture Urine 50,000-100,000 CFU/mL Escherichia coli(A) BERT 04/19/2020 10:[address] [facility] Culture Urine 50,000-100,000 CFU/mL Streptococcus agalactiae (Group B)(A) 04/19/2020 10:[address] [facility] Culture Urine 50,000-100,000 CFU/mL urogenital aneudy BERT 04/19/2020 10:[address] [facility] Urine URINE SPECIMEN OBTAINED BY CLEAN CATCH PROCEDURE / Unknown Collection / Unknown 04/17/2020 8:57 PM CDT 04/17/2020 9:[address] [facility] - 04/19/2020 10:33 AM CDT [...] Johnson MD LAB - MICROBIOLOGY O RDERABLES [facility] [address] [facility] [address] [phone] * (ABNORMAL) DRUG SCREEN TOX URINE PANEL (04/17/2020 8:57 PM CDT) Only the most recent of3 resultswithin the time period is included. [facility] Amphetamines Screen Urine Detected(A) Not detected 04/17/2020 9:38 PM CDT [facility] Barbiturates Screen Urine Not detected Not detected 04/17/2020 9:38 PM CDT [facility] Benzodiazepines Screen Urine Not detected Not detected 04/17/2020 9:38 PM CDT [facility] Cannabinoids Screen Urine Not detected Not detected 04/17/2020 9:38 PM CDT [facility] Cocaine Screen Urine Not detected Not [...] URINE CHEMISTR Y ORDERABLES [facility] [address] [place] [address] * BLOOD TYPE VERIFICATION (04/17/2020 8:24 PM CDT) Only the most recent of2 resultswithin the time period is included. ABO Rh A POS 04/17/2020 8:4 7 PM CDT [facility] Blood Bank BLOOD SPECIMEN / Unknown Venipuncture / Unknown 04/17/2020 8:24 PM CDT 04/17/2020 8:24 PM CDT Phuong Frazier MD LAB - BLOOD BANK OR DERABLES Performing Organization Address City/[facility]/ZIP Co de Phone Number [facility] [address] [phone] * PREPARE (CROSSMATCH) RBC UNIT(S), 1 Units (04/17/2020 8:12 PM CDT) Only the most recent of7 resultswithin the time period is included. Unit Description AS1 LR PRBC [facility] Unit ABO A [facility] Unit Rh POS [facility] Product Number R02 [facility] Unit Donor # [id number] [facility] BLOOD BANK LAB Unit Status released [facility] Product Code [id number] [facility] Blood Type Barcode 6200 [facility] Expiration Date S [facility] LAB Unit Description AS1 LR PRBC [facility] Unit ABO A [facility] Unit Rh POS [facility] Product Number R02 [facility] Unit Donor # [id number] [facility] BLOOD [facility]ANK LAB Unit Status transfused [facility] Product Code [id number] [facility] Blood Type Barcode 6200 [facility] Expiration Date S [facility] LAB Blood Bank BLOOD SPECIMEN / Unknown 04/17/2020 8:12 PM CDT 04/17/2020 8:16 PM CDT Shayna Chirinos MD LAB - BLOOD BANK ORDERABLES [facility] [address] [phone] * PREPARE CRYOPRECIPITATE UNIT (S), 2 Units (04/17/2020 8:12 PM CDT) Unit Description Thawed Cryp Clsd [facility] Unit ABO A [facility] Unit Rh POS [facility] Product Number [id number] [facility] Unit Donor # [id number] [facility] BLOOD BANK LAB Unit Status transfused [facility] Product Code [id number] [facility] Blood Type Barcode 6200 [facility] Expiration Date S [facility] Unit Description Thawed Cryp Clsd [facility] Unit ABO A [facility] Unit Rh POS [facility] Product Number [id number] [facility] Unit Donor # [id number] [facility] BLOOD BANK LAB Unit Status transfused [facility] Product Code [id number] [facility] Blood Type Barcode 6200 [facility] Expiration Date S [facility] B[facility]OD [facility] LAB Blood Bank BLOOD SPECIMEN / Unknown 04/17/2020 8:12 PM CDT 04/17/2020 8:16 PM CDT Phuong Frazier MD LAB - BLOOD BANK OR DERABLES [facility] [address] [place] [address] * PREPARE PLATELET PHERESIS UNIT(S), 2 Units (04/17/2020 8:12 PM CDT) Only the most recent of3 resultswithin the time period is included. Unit Description LR PLT Pher IRR [facility] Unit ABO AB [facility] Unit Rh POS [facility] Product Number P14 [facility] Unit Donor # [id number] [facility] BLOOD BANK LAB Unit Status transfused [facility] Product Code [id number] [facility] Blood Type Barcode 8400 [facility] Expiration Date S [facility] B[facility]OD [facility] Unit Description LR PLT Pheresis [facility] Unit ABO A [facility] Unit Rh POS [facility] Product Number P01 [facility] Unit Donor # [id number] [facility] BLOOD BANK LAB Unit Status released [facility] Product Code [id number] [facility] Blood Type Barcode 6200 [facility] Expiration Date S [facility] Unit Description LR PLT Pheresis [facility] Unit ABO A [facility] Unit Rh POS [facility] Product Number P04 [facility] Unit Donor # [id number] [facility] C BLOOD BANK LAB Unit Status released [facility] Product Code [id number] [facility] Blood Type Barcode 6200 [facility] Expiration Date S [facility] B[facility]OD [facility] LAB Blood Bank BLOOD SPECIMEN / Unknown 04/17/2020 8:12 PM CDT 04/17/2020 8:16 PM CDT Afsaneh Sandoval MD LAB - BLOOD BANK ORD ERABLES [facility] [address] [phone] * SONOGRAM - COMPLETE (01/23/2020 2:48 PM CDT) Only the most recent of2 resultswithin the time period is included. Anatomical Region Laterality Modality Other 01/23/2020 2:48 PM CDT Narrative 01/23/2020 4:21 PM CDT ? [facility] ?PHONE: ??FAX: FETUS A Pat. Name: ?HILLARY DO No: ?[id number] Study Date: ?? 01/23/2020 ??2:48pm , Age: ? 1990, 29 Pregnancies: ?? 4, Para 2, Ab 1 Height: ? 63 in Weight: ? 117 lb LMP: ?Unknown GA by Base: ?? 25w6d ?? FABIAN: 05/01/2020 GA by US: ? 25w2d ?? FABIAN: 05/05/2020 GA Selected: ??25w6d (From [facility]) FABIAN: ?05/01/2020 Referring MD: Edgard, , [facility] [employer] Sales Representative: ??Cintia Messina, VISHNU, RVT CPT4: ? 80731 [phone] BMI: ?20.72 Hist/Ind: ? DC/DA Twins ? Anatomy Screen ?Tobacco Use ?Marijuana/Methamphetamine ?use in early MEASUREMENTS & AGE ? GROWTH EVALUATION Measurement ??GA ? Range ? Srce %for GA Ratios ----- ---- ------- BPD ??6.1 cm 24w5d (93t9h-52l5p) Hadl BPD 9% FL/BPD 0.75 (0.71 - 0.87) HC ??23.0 cm 25w0d (57h0j-76a4v) Hadl HC ??7% FL/AC ??0.21 (0.20 - 0.24) AC ??21.7 cm 26w1d (88a5c-85a8h) Hadl AC ??53% HC/AC ??1.06 (1.01 - 1.20) FL ?? 4.5 cm 25w0d (76r6w-09h7w) Hadl FL ??15% CI ? 0.74 (0.70 - 0.86) HL ?? 4.4 cm 26w1d (92a4y-43m5x) Dontae HL ??55% GA for sonogram 25w2d (38x8n-00v8w) ?? Weight Estimate: based on (BPD,HC,AC,FL) Avg [...] FETUS B Pat. Name: ?HILLARY DO. No: ?[id number] Study Date: ?? 01/23/2020 ??2:48pm , Age: ? 1990, 29 Pregnancies: ?? 4, Para 2, Ab 1 Height: ? 63 in Weight: ? 117 lb LMP: ?Unknown GA by Base: ?? 25w6d ?? FABIAN: 05/01/2020 GA by US: ? 25w1d ?? FABIAN: 05/06/2020 GA Selected: ??25w6d (From [facility]) FABIAN: ?05/01/2020 Referring MD: Edgard, , [facility] Food Products Sales Representative: ??Cintia Messina, VISHNU, RVT CPT4: ? 33044 [phone] Hist/Ind: ? DC/DA Twins ? Anatomy Screen ?Tobacco Use ?Marijuana/Methamphetamine ?use in early MEASUREMENTS & AGE ? GROWTH EVALUATION Measurement ??GA ? Range ? Srce %for GA Ratios ----- ---- ------- BPD ??5.9 cm 24w0d (10m3u-61e8s) Hadl BPD 2% FL/BPD 0.77 (0.71 - 0.87) HC ??22.4 cm 24w3d (29f3a-80q1g) Hadl HC ??2% FL/AC ??0.20 (0.20 - 0.24) AC ??22.7 cm 27w0d (14b1d-16g3f) Hadl AC ??78% HC/AC ??0.99 (1.01 - 1.20* FL ?? 4.5 cm 25w0d (80o2q-44n2c) Hadl FL ??15% CI ? 0.74 (0.70 - 0.86) HL ?? 4.2 cm 25w1d (57g5u-83z2w) Dontae HL ??38% GA for sonogram 25w1d (83w3o-90f6m) ?? Weight Estimate: based on (BPD,HC,AC,FL) Avg [...] <Electronic Signature> ??01/23/2020 04:18pm Walter Mota MD [facility] ORDERABLES * RPR W REFLEX TO TITER (MONITOR) (12/19/2019 3:22 PM CDT) [facility] RPR Monitor Nonreactive Nonreactive 12/20/2019 7:32 AM CDT [facility] Blood BLOOD SPECIMEN / Unknown Venipuncture / Unknown 12/19/2019 3:22 PM CDT 12/19/2019 3:40 PM CDT Phuong Quinones MD LAB - CHEMISTRY MIRI GO [facility] [address] [place] [phone] * IMAGING RADIOLOGY XRAY RESULTS ORDER (12/11/2019 [...] - 38.4 Seconds 12/11/2019 10:03 AM CDT [facility] PT 12.3 12.1 - 14.8 Seconds 12/11/2019 10:03 AM [facility] INR 0.9 See Comment 12/11/2019 10:03 AM T [facility] Buffer 41.1 Seconds 020 10:03 AM [facility] Phospholipid 38.7 Seconds 12/11/2019 10:03 AM [facility] Delta 2.4 <8.0 Seconds 12/11/2019 10:03 AM [facility] Interpretation [place] Negative 12/11/2019 10:03 AM [facility] Comment:Up to 15-20% of jhony ents [...] Pino MD LAB - HEMATOLOGY ORD ERABLES [facility] [address] [address], [facility] [phone] * HEPATITIS C RNA QUANTITATIVE (12/08/2019 11:34 AM CDT) Only the most recent of2 resultswithin the time period is included. [facility] Hepatitis C Virus Quantitation [id number] IU/mL 12/19/2019 5:07 PM CDT [facility]) Hepatitis C Virus Log 10 5.959 log10 IU/mL 12/19/2019 5:07 PM CDT [facility] Test Information Comment 12/19/19 5:07 PM CDT [facility] Comment:The quantitative ran ge of this assay is 15 IU/mL to 100 million IU/mL. Blood BLOOD SPECIMEN / Unknown Lab Venipuncture / Unknown 12/08/2019 11:34 AM CDT 12/08/2019 1:41 PM CDT Narrative [facility] ([facility]) - 12/19/2019 5:07 PM CDT Performed at: ??01 - [facility] [address] ??[id number] Assistant Professor Of Spanish: Kiran Guerra MD, Phone: ??[phone] Christiano Pino MD LAB - CHEMISTRY MIRI GO [facility] ([facility]) [address] [place] [address] * (ABNORMAL) CARDIOLIPIN ANTIBODY IGG/IGM PANEL (12/08/2019 11:34 AM CDT) [facility] Cardiolipin Antibody IgG <9 0 - 14 GPL U/mL 12/11/2019 4:09 PM CDT [facility] Comment: ?Negative: ?<15 ?Indeterminate: ? 15 - 20 ?Low-Med Positive: >20 - 80 ?High Positive: ? >80 Cardiolipin Antibody IgM 29(H) 0 - 12 MPL U/mL 12/11/2019 4:09 PM CDT [facility] ([facility]) Comment: ?Negative: ?<13 ?Indeterminate: ? 13 - 20 ?Low-Med Positive: >20 - 80 ?High Positive: ? >80 Blood BLOOD SPECIMEN / Unknown Lab Venipuncture / Unknown 12/08/2019 11:34 AM CDT 12/08/2019 12:32 PM CDT Narrative [facility] ([facility]) - 12/11/2019 4:09 PM CDT Performed at: ??01 - [facility] [address] [place], [place] ??[id number] Assistant Professor Of Spanish: Tyrone Rider PhD, Phone: ??[phone] Christiano Pino MD LAB - SEROLOGY ORDER CRUZITO Performing Organization Address City/State/[facility] Co de Phone Number [facility] ([facility] [address] [place] [address] * MARQUITA BLOOD SCREEN W/REFLEX TITER (12/08/2019 11:34 AM CDT) [facility] Negative Negative 12/10/2019 10:30 AM CDT [facility] Blood BLOOD SPECIMEN / Unknown Lab Venipuncture / Unknown 12/08/2019 11:34 AM CDT 12/08/2019 12:31 PM CDT Narrative [facility] - 12/10/2019 10:30 AM CDT Methodology: Indirect Immunofluorescence Assay (IFA) utilizing Hep-2-Gamma cells. Christiano Pino MD LAB - CHEMISTRY MIRI GO [facility] [address] [place] [address] * BETA-2 GLYCOPROTEIN 1 ANTIBODY IGG/IGM PANEL (12/08/2019 11:34 AM CDT) [facility] Beta-2 Glycoprotein I Antibody IgG <9 0 - 20 GPI IgG units 12/12/2019 3:35 AM CDT [facility] ([facility]) Comment: The reference interval reflects a 3SD or 99th percentile interval, which is thought to represent a potentially clinically significant result in accordance with the International Consensus Statement on the classification criteria for definitive antiphospholipid syndrome (APS). J Thromb Haem 2006;4:295-306. Beta-2 Glycoprotein I Antibody IgM 9 0 - 32 GPI IgM units 12/12/2019 3:35 AM CDT [facility] ([facility]) Comment: The reference interval reflects a 3SD or 99th percentile interval, which is thought to represent a potentially clinically significant result in accordance with the International Consensus Statement on the classification criteria for definitive antiphospholipid syndrome (APS). J Thromb Haem 2006;4:295-306. Blood BLOOD SPECIMEN / Unknown Lab Venipuncture / Unknown 12/08/2019 11:34 AM CDT 12/08/2019 12:32 PM CDT Narrative [facility] ([facility]) - 12/12/2019 3:35 AM CDT Performed at: ??01 - [facility] [address] ??[id number] Assistant Professor Of Spanish: Kiran Guerra MD, Phone: ??[phone] Christiano Pino MD LAB - CHEMISTRY MIRI GO [facility] ([facility]) [address] [place] [address] * (ABNORMAL) HEPATITIS SCREEN ACUTE (12/08/2019 11:34 AM CDT) [facility] HAV Antibody IgM Non Reactive Non Reactive 12/08/2019 1:48 PM CDT [facility] HBsAg Non Reactive Non Reactive 12/08/2019 1:48 PM CDT [facility] HBc Antibody IgM Non Reactive Non Reactive 12/08/2019 1:48 PM CDT [facility] HCV Antibody Screen REACTIVE(A) Non Reactive 12/08/2019 1:48 PM CDT [facility] Blood BLOOD SPECIMEN / Unknown Lab Venipuncture / Unknown 12/08/2019 11:34 AM CDT 12/08/2019 12:32 PM CDT Narrative [facility] - 12/08/2019 1:48 PM CDT A reactive result is consistent with current HCV infection or past HCV infection that has been resolved. Reflex testing to Hepatitis C Virus RNA Quantitative, Real Time PCR will be performed. See separate report. Christiano Pino MD LAB - CHEMISTRY MIRI GO Performing Organization Address [facility] Co de Phone Number [facility] [address] [place], [place] [phone] * TSH REFLEX FREE T4 (12/08/2019 7:03 AM CDT) Pathologist [facility] TSH 0.826 0.350 - 4.940 uIU/mL 12/08/2019 11:02 AM CDT [facility] Blood BLOOD SPECIMEN / Unknown Lab Venipuncture / Unknown 12/08/2019 7:03 AM CDT 12/08/2019 7:48 AM CDT Christiano Pino MD LAB - CHEMISTRY MIRI GO Performing Organization Address [facility] Co de Phone Number [facility] [address] [place], [place] [phone] * (ABNORMAL) CYTOMEGALOVIRUS ANTIBODY IGG/IGM BLOOD (12/08/2019 7:03 AM CDT) Cytomegalovirus Antibody IgG 5.40(H) 0.00 - 0.59 U/mL 12/10/2019 8:08 AM CDT [facility] ([facility]) Comment: ? Negative ?<0.60 ? Equivocal ?? 0.60 - 0.69 ? Positive ?>0.69 Cytomegalovirus Antibody IgM <30.0 0.0 - 29.9 AU/mL 12/10/2019 8:08 AM CDT [facility] ([facility]) Comment: ?Negative ? <30.0 ?Equivocal ??30.0 - 34.9 ?Positive ? >34.9 A positive result is generally indicative of acute infection, reactivation or persistent IgM production. Blood BLOOD SPECIMEN / Unknown Lab Venipuncture / Unknown 12/08/2019 7:03 AM CDT 12/08/2019 7:48 AM CDT Narrative [facility] - 12/10/2019 8:08 AM CDT Performed at: ??01 - [facility] [address] [place], [place] ??[id number] Assistant Professor Of Spanish: Tyrone Rider PhD, Phone: ??[phone] Pattie Castellon MD LAB - CHEMISTRY ORD ERABLES [facility] [address] [place] [address] * RUBELLA ANTIBODY IGM TITER (12/08/2019 7:03 AM CDT) Rubella Antibody IgM <20.0 0.0 - 19.9 AU/mL 12/10/2019 8:08 AM CDT [facility] ([facility] Comment: ? Negative ?<20.0 ? Equivocal ? 20.0 - 24.9 ? Positive ?>24.9 Blood BLOOD SPECIMEN / Unknown Lab Venipuncture / Unknown 12/08/2019 7:03 AM CDT 12/08/2019 8:17 AM CDT Narrative [facility] ([facility]) - 12/10/2019 8:08 AM CDT Performed at: ??01 - [facility] [address], [place], [place] ??[id number] Assistant Professor Of Spanish: Tyrone Rider PhD, Phone: ??[phone] Asuncion Aparicio MD LAB - SEROLOGY ORDER CRUZITO Performing Organization Address City/State/[facility] Co de Phone Number [facility] [address] [place] [address] * HEMOGLOBIN ELECTROPHORESIS (12/08/2019 7:03 AM CDT) Hemoglobin A1 98.3 97.1 - 99.1 % 12/12/2019 10:19 AM CDT [facility] Hemoglobin F 0.0 0.0 - 2.0 % 12/12/2019 10:19 AM CDT [facility] Hemoglobin S 0.0 <=0.0 % 12/12/2019 10:19 AM CDT [facility] Hemoglobin C 0.0 <=0.0 % 12/12/2019 10:19 AM CDT [facility] Hemoglobin A2 1.7 0.9 - 2.9 % 12/12/2019 10:19 AM CDT [facility] Hemoglobin E 0.0 % 12/12/2019 10:19 AM CDT [facility] Interpretation Normal Interpretation 12/12/2019 10:19 AM CDT [facility] Blood BLOOD SPECIMEN / Unknown Lab Venipuncture / Unknown 12/08/2019 7:03 AM CDT 12/08/2019 7:48 AM CDT Pattie Castellon MD LAB - CHEMISTRY RIGOBERTO DOSS Performing Organization Address [facility] Co de Phone Number [facility] [address] [place] [phone] * HEPATITIS B SURFACE ANTIGEN W RFLX CONFIRMATION (12/08/2019 7:03 AM CDT) HBsAg Non Reactive Non Reactive 12/08/2019 10:59 AM CDT [facility] Blood BLOOD SPECIMEN / Unknown Lab Venipuncture / Unknown 12/08/2019 7:03 AM CDT 12/08/2019 8:17 AM CDT Asuncion Aparicio MD LAB - CHEMISTRY MIRI GO Performing Organization Address [facility] Co de Phone Number [facility] [address] [place] [phone] * (ABNORMAL) FOLATE (12/08/2019 7:03 AM CDT) Folate 6.8(L) 7.0 - 31.4 ng/mL 12/08/2019 11:02 AM CDT [facility] Blood BLOOD SPECIMEN / Unknown Lab Venipuncture / Unknown 12/08/2019 7:03 AM CDT 12/08/2019 7:48 AM CDT Christiano Pino MD LAB - CHEMISTRY MIRI GO Performing Organization Address [facility] Co de Phone Number [facility] [address] [place] [phone] * (ABNORMAL) IRON + TRANSFERRIN PANEL (12/08/2019 7:03 AM CDT) Iron 15(L) 50 - 170 ug/dL 12/08/2019 8:11 AM CDT [facility] Transferrin 472(H) 180 - 382 mg/dL 12/08/2019 8:11 AM CDT [facility] TIBC Calculated 590(H) 240 - 450 ug/ml 12/08/2019 8:11 AM CDT [facility] Iron Saturation % 3(L) 20 - 50 % 12/08/2019 8:11 AM CDT [facility] Blood BLOOD SPECIMEN / Unknown Lab Venipuncture / Unknown 12/08/2019 7:03 AM CDT 12/08/2019 7:48 AM CDT Pattie Castellon MD LAB - CHEMISTRY ORD ERABLES Performing Organization Address City/[facility]/ZIP Co de Phone Number [facility] [address] [place], [place] [phone] * (ABNORMAL) FERRITIN (12/08/2019 7:03 AM CDT) Ferritin 2(L) 5 - 204 ng/mL 12/08/2019 8:31 AM CDT [facility] Blood BLOOD SPECIMEN / Unknown Lab Venipuncture / Unknown 12/08/2019 7:03 AM CDT 12/08/2019 7:48 AM CDT Pattie Castellon MD LAB - CHEMISTRY ORD ERABLES [facility] [address] [place], [place] [phone] Care Teams Picker [employer] Packer Relationship Specialty Start Date End Date Alejandro Blevins MD [address] [place] [phone] PCP - General Family Medicine 12/07/19
--- OUTSIDE RECORDS SUMMARY | 2024-08-26 22:23 | XMS_ITS ---
Author Organization Unknown Address [address] [place] [phone] Phone Care Team Providers [employer] Name Role Phone ZULLY Anaya Attending Unavailable [...] Cole Rae M.D. MZ: MZ Report ID: [id number] Reading Location: [place] [address] Social History Type Status Start Date End Date Code Code Syst em Smoking History Never smoker (Never Smoked) [id number] SNOMED CT Sex Female Hospital Discharge Instructions [...] JOSE Buchanan PCP - Primary care physician Imaging Narrative Notes
--- NOTE | 2024-08-26 22:24 | PC.NURSE ---
COVID PCR obtained and taken to lab
[2024-08-26] MEDS: KETOROLAC 30 MG/ML VIAL (*BKC) IV PUSH (22:44)
[2024-08-26] MEDS: METOCLOPRAMIDE HCL INJ 10 MG/2 ML VIAL IV PUSH (22:44)
[2024-08-26] MEDS: diphenhydrAMINE HCl INJ 50 MG/ML VIAL 25 MG IV PUSH (22:44)
[2024-08-26] MEDS: SODIUM CHLORIDE 0.9% IV 1,000 ML 999 ML IV CONT (22:45)
--- OUTSIDE RECORDS SUMMARY | 2024-08-26 22:50 | XMS_ITS | Patient Health Summary ---
Author Organization [facility] Address [address] [place] [address] Care Team Providers Care Trademark Affixer Name Role Phone Alejandro Blevins MD Primary Care Provider [phone] Note from [facility],non-owned Affiliates and Associated Physician Practices is amultiple site organization consisting of ambulatory clinics and hospital sitesin [place], [place], [place]. This disclosure is being madepursuant to the Care Everywhere program and may not contain all information available regarding this patient. Last updated 18.[facility] Allergies * Bee Venom(Anaphylaxis) -High [...] Comments Blood Pressure 108/71 08/19/2021 11:05 AM NURSING HOME SOCIAL WORKER Pulse 74 08/19/2021 11:05 AM NURSING HOME SOCIAL WORKER Temperature 36.2 ??C (97.2 ??F) 06/02/2020 8:43 [...] 04/18/2020) * PT PTT PANEL(Performed 04/18/2020) * [id number] ANTIBODY(Performed 04/18/2020) * [id number] ACTIVITY(Performed 04/18/2020) * FIBRINOGEN ACTIVITY(Performed 04/18/2020) * GLUCOSE - POINT OF CARE(Performed 04/18/2020) * PATHOLOGY PERIPHERAL SMEAR REVIEW(Performed 04/18/2020) Performed for Twin delivery by ([facility]) * XR CHEST 1VW PORTABLE(Performed 04/18/2020) Performed [...] Twin delivery by ([facility]) * HEMOGLOBIN A1C(Performed 04/18/2020) * COMPREHENSIVE METABOLIC [...] Twin delivery by ([facility]) * TRANSFUSE PLATELET PHERESIS UNIT(S)(Performed 04/18/2020) * [...] Twin delivery by ([facility]) * PREPARE RBC LEUKOREDUCED UNIT(Performed 04/17/2020) * [...] multiple gestation type ([facility]) * SLIDE SCAN HEMATOLOGY(Performed 04/17/2020) Performed for Twin gestation in third trimester, unspecified multiple gestation type ([facility]) * CBC W AUTO DIFFERENTIAL(Performed 04/17/2020) Performed for Twin gestation in third trimester, unspecified multiple gestation type ([facility]) * SONOGRAM - COMPLETE(Performed 01/23/2020) Performed for Evaluate anatomy not seen on prior sonogram * URINE DRUG SCREEN IMMUNOASSAY(Performed 01/23/2020) Performed for Supervision of high risk in second trimester ([facility]) * CULTURE URINE(Performed 01/23/2020) Performed for Supervision of high risk in second trimester ([facility]), Other iron deficiency anemia, Chronic hepatitis C without hepatic coma ([facility]) * HIV-1 HIV-2 ANTIBODY + HIV P24 AG PANEL(Performed 12/19/2019) Performed for Dichorionic diamniotic twin in second trimester ([facility]) * RPR W REFLEX TO TITER (MONITOR)(Performed 12/19/2019) Performed for Dichorionic diamniotic twin in second trimester ([facility]) * SONOGRAM - COMPLETE(Performed 12/19/2019) * IMAGING/RADIOLOGY/XRAY RESULTS ORDER(Performed 12/11/2019) * RUBELLA ANTIBODY IGG(Performed 12/09/2019) Performed for Dichorionic diamniotic twin in second trimester ([facility]) * CBC W AUTO DIFFERENTIAL(Performed 12/09/2019) Performed [...] PAP IG LB+HPV APTIMA (08/19/2021 11:34 AM NURSING HOME SOCIAL WORKER) Diagnosis Comment 08/22/2021 7:09 AM NURSING HOME SOCIAL WORKER [facility] ([facility]) Comment:NEGATIVE FOR INTRAEP ITHELIAL LESION OR MALIGNANCY. Specimen Adequacy Comment 022 7:09 AM NURSING HOME SOCIAL WORKER [facility] ([facility]) Comment: Satisfactory for evaluation. ??Endocervical and/or squamous metaplastic cells (endocervical component) are present. Performed by Comment 08/22/2021 7:09 AM NURSING HOME SOCIAL WORKER [facility] ([facility]) Comment:Nella Montes, Claim Taker (ASCP) Comment . 08/22/2021 7:09 AM NURSING HOME SOCIAL WORKER [facility] ([facility]) Note Comment 08/22/2021 7:09 AM NURSING HOME SOCIAL WORKER [facility] ([facility]) Comment: The Pap smear is a screening test designed to aid in the detection of premalignant and malignant conditions of the uterine cervix. ??It is not a diagnostic procedure and should not be used as the sole means of detecting cervical cancer. ??Both false-positive and false-negative reports do occur. IGLBP CPT Code Automation Comment 08/22/2021 7:09 AM NURSING HOME SOCIAL WORKER [facility] ([facility]) Comment: This liquid based ThinPrep(R) pap test was screened with the use of an image guided system. Human papillomavirus Aptima Negative Negative 08/22/2021 7:09 AM NURSING HOME SOCIAL WORKER [facility] ([facility]) Comment: This nucleic acid amplification test detects fourteen high-risk HPV types (16,18,31,33,35,39,45,51,52,56,58,59,66,68) without differentiation. Pathology/Cytolo gy ENTIRE ENDOCERVIX / Unknown Collection / Unknown 08/19/2021 11:34 AM NURSING HOME SOCIAL WORKER 08/19/2021 12:41 PM NURSING HOME SOCIAL WORKER Narrative [facility] ([facility]) - 08/22/2021 7:09 AM NURSING HOME SOCIAL WORKER Performed at: ??01 - [facility] [address] ??[id number] Customer Management Specialist: Stephanie Lemus MD, Phone: ??[phone] Performed at: ??02 - [facility] [address] ??[id number] Customer Management Specialist: Stephanie Lemus MD, Phone: ??[phone] Specimen Comment: No. of containers..01 ThinPrep Vial Adrienne Roth MD LAB - PATHOLOGY/CY TOLOGY ORDERABLES Performing Organization Address City/State/[facility] Co de Phone Number [facility] ([facility]) [address] [place] [address] * PATHOLOGY TISSUE EXAM (STL) (02/18/2021 1:41 PM CDT) Only the most recent of3 resultswithin the time period is included. Case Report Surgical Pathology Report ? Case: [id number] ? 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 02/20/2021 6:34 PM [facility] Gross Description The requisition and [...] B2. 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 AR 02/20/2021 6:34 PM [facility] Microscopic Description Microscopic examination substantiates [...] no intact epithelium. 02/20/2021 6:34 PM CDT [facility] Disclaimer All histochemical and/or immunohistochemical results are interpreted with controls that demonstrate appropriate staining reactions before reporting results. Note on use of immunocytochemistry reagents: This test was developed and its performance characteristic determined by [facility], Department of Laboratory Medicine. It has [...] interpreted with caution. 02/20/2021 6:34 PM CDT [facility] Embedded Images 02/20/2021 6:34 PM CDT [facility] Pathology/Cytology SPECIMEN FROM LESION OF UTERINE [...] Roth MD LAB - PATHOLOGY/CY TOLOGY ORDERABLES [facility] [address] [place] [address] * HCG URINE QUALITATIVE - POCT (IP) INTERFACED (02/18/2021 11:48 AM CDT) Only the most recent of2 resultswithin the time period is included. HCG Qual Urine Negative Negative 02/18/2021 11:53 AM CDT [facility] Urine URINE / Unknown 02/18/2021 1 1:48 AM CDT 02/18/2021 11:53 AM CDT Adrienne Rtoh MD LAB - POINT OF CAR E ORDERABLES [facility] [address] [place] [address] * (ABNORMAL) PAP LB HPV HR DNA (05/12/2020 12:08 PM CDT) Diagnosis Comment(A) 05/19/2020 12:08 PM CDT [facility] ([facility]) Comment: EPITHELIAL CELL ABNORMALITY. ATYPICAL SQUAMOUS CELLS, CANNOT EXCLUDE HIGH-GRADE SQUAMOUS INTRAEPITHELIAL LESION (ASC-H). Recommendation Comment(A) 05/19/2020 12:08 PM CDT [facility] ([facility]) Comment:Suggest colposcopy a nd biopsy if indicated. Specimen Adequacy Comment 020 12:08 PM CDT [facility] ([facility]) Comment: Satisfactory for evaluation. ??Endocervical and/or squamous metaplastic cells (endocervical component) are present. Performed by Comment 05/19/2020 12:08 PM CDT [facility] ([facility]) Comment:Kate Turner, Cyto technologist (ASCP) Electronically Signed by Comment 05/19/2020 12:08 PM CDT [facility] ([facility]) Comment:Cyndee Howard MD, Pa thologist Comment . 05/19/2020 12:08 PM CDT [facility] ([facility]) Pathologist Provided ICD10 Comment 05/19/2020 12:08 PM CDT [facility] ([facility]) Comment:R87.611 Note Comment 05/19/2020 12:08 PM CDT [facility] ([facility]) Comment: The Pap smear is a screening test designed to aid in the detection of premalignant and malignant conditions of the uterine cervix. ??It is not a diagnostic procedure and should not be used as the sole means of detecting cervical cancer. ??Both false-positive and false-negative reports do occur. Human papillomavirus High Risk Positive(A ) Negative 05/19/2020 12:08 PM CDT [facility] ([facility]) Comment: This nucleic acid amplification high-risk HPV test detects thirteen high-risk types (16,18,31,33,35,39,45,51,52,56,58,59,68) without differentiation. Pathology/Cytolo gy PART OF UTERINE CERVIX / Unknown Collection / Unknown 05/12/2020 12:08 PM CDT 05/12/2020 12:22 PM CDT Narrative [facility] ([facility]) - 05/19/2020 12:08 PM CDT Performed at: ??01 - [facility] [address] ??[id number] Customer Management Specialist: Stephanie Lemus MD, Phone: ??[phone] Performed at: ??02 - [facility] [address] ??[id number] Customer Management Specialist: Stephanie Lemus MD, Phone: ??[phone] Specimen Comment: Source.............Cervix;Endocervix Specimen Comment: No. of containers..01 ThinPrep Vial Tuan Platt MD LAB - PATHOLOGY/CYTO LOGY ORDERABLES [facility] ([facility]) [address] [place] [address] * GLUCOSE PROTEIN KETONE URINE - POINT [...] CA RE ORDERABLES [facility] [address] [phone] * HCG URINE QUALITATIVE - POINT OF CARE (05/12/2020 10:33 AM CDT) HCG Qual Urine Negative Negative [facility] POCT [facility] QC Verified Yes Yes [facility] POC T TESTING Urine URINE / Unknown 05/12/2020 1 0:33 AM CDT Lola Olson MD LAB - POINT OF CA RE ORDERABLES [facility] [address] [phone] * CARDIAC RHYTHM STRIP ORDER (04/24/2020 1:36 [...] - 10.7 x10E9/L 04/23/2020 6:44 AM CDT [facility] WBC Corrected 04/23/2020 6:44 AM CDT [facility] RBC 2.97(L) 3.80 - 5.20 x10E12/L 04/23/2020 6:44 AM CDT [facility] Hemoglobin 8.4(L) 12.0 - 15.6 gm/dL 04/23/2020 6:44 AM CDT [facility] Hematocrit 25.6(L) 35.9 - 45.5 % 04/23/2020 6:44 AM CDT [facility] MCV 86.2 80.7 - 98.3 fl 04/23/2020 6:44 AM CDT [facility] MCH 28.3 26.7 - 34.0 pg 04/23/2020 6:44 AM CDT [facility] MCHC 32.8 30.8 - 35.9 gm/dL 04/23/2020 6:44 AM CDT [facility] Platelet Count 272 153 - 416 x10E9/L 04/23/2020 6:44 AM [facility] RDW-CV 19.6(H) 12.1 - 14.9 % 04/23/2020 6:44 AM [facility] MPV 10.8 9.4 - 12.9 fl 04/23/2020 6:44 AM [facility] Neutrophils % 79.2(H) 44.0 - 73.0 % 04/23/2020 6:44 AM [facility] Lymphocytes % 11.4(L) 20.0 - 43.0 % 04/23/2020 6:44 AM [facility] Monocytes % 5.2 5.0 - 13.0 % 04/23/2020 6:44 AM [facility] Eosinophils % 0.1 0.0 - 6.0 % 04/23/2020 6:44 AM [facility] Basophils % 0.2 0.0 - 2.0 % 04/23/2020 6:44 AM [facility] Immature Granulocytes 3.9(H) 0 - 1 % 04/23/2020 6:44 AM [facility] Neutrophil Absolute 12.50(H) 2.01 - 7.14 x10E9/L 04/23/2020 6:44 AM [facility] Lymphocytes Absolute 1.80 1.07 - 3.94 x10E9/L 04/23/2020 6:44 AM [facility] Monocytes Absolute 0.82 0.26 - 1.07 x10E9/L 04/23/2020 6:44 AM [facility] Eosinophils Absolute 0.02 0 - 0.47 x10E9/L 04/23/2020 6:44 AM [facility] Basophils Absolute 0.03 0 - 0.08 x10E9/L 04/23/2020 6:44 AM [facility] Immature Granulocytes Absolute 0.62(H) 0.00 - 0.06 x10E9/L 04/23/2020 6:44 AM [facility] nRBC Auto 4 /100 WBC 04/23/2020 6:44 AM [facility] Blood BLOOD SPECIMEN / Unknown Lab Venipuncture / Unknown 04/23/2020 6:01 AM CDT 04/23/2020 6:30 AM CDT Maikel Ring MD LAB - HEMATOLOGY ORDERABLES [facility] [address] [place] [address] * (ABNORMAL) COMPREHENSIVE METABOLIC PANEL (04/23/2020 6:01 AM CDT) Only the most recent of7 resultswithin the time period is included. Glucose 82 70 - 105 mg/dL 04/23/2020 7:01 AM [facility] Sodium 135(L) 136 - 145 mmol/L 04/23/2020 7:01 AM [facility] Potassium 3.8 3.5 - 5.1 mmol/L 04/23/2020 7:01 AM [facility] Chloride 102 98 - 107 mmol/L 04/23/2020 7:01 AM [facility] CO2 25 23 - 31 mmol/L 04/23/2020 7:01 AM [facility] Calcium 7.6(L) 8.4 - 10.4 mg/dL 04/23/2020 7:01 AM [facility] Anion Gap 8 8 - 16 mmol/L 04/23/2020 7:01 AM [facility] BUN 14 7 - 18.7 mg/dL 04/23/2020 7:01 AM [facility] Creatinine 0.60 0.57 - 1.11 mg/dL 04/23/2020 7:01 AM [facility] Alkaline Phosphatase 112 40 - 150 U/L 04/23/2020 7:01 AM [facility] ALT 29 0 - 61 U/L 04/23/2020 7:01 AM [facility] AST 34 5 - 34 U/L 04/23/2020 7:01 AM [facility] Protein Total 5.7(L) 6.4 - 8.3 gm/dL 04/23/2020 7:01 AM [facility] Albumin 2.2(L) 3.5 - 5.2 gm/dL 04/23/2020 7:01 AM [facility] Bilirubin Total 0.5 0.2 - 1.0 mg/dL 04/23/2020 7:01 AM [facility] eGFR by MDRD >60 >60 mL/min/1.7 3m2 04/23/2020 7:01 AM CDT [facility] eGFR by MDRD >60 >60 mL/min/1.7 3m2 04/23/2020 7:01 AM CDT [facility] Blood BLOOD SPECIMEN / Unknown Lab Venipuncture / Unknown 04/23/2020 6:01 AM CDT 04/23/2020 6:30 AM CDT Shira Gracia MD LAB - CHEMISTRY ORD ERABLES Performing Organization Address City/[facility]/ZIP Co de Phone Number [facility] [address] [place] [address] * PREPARE FFP UNIT(S), 1 Units (04/21/2020 6:41 AM CDT) Only the most recent of2 resultswithin the time period is included. Unit Description Thawed Plasma 5D [facility] Unit ABO AB [facility] Unit Rh POS [facility] Product Number [id number] [facility] Unit Donor # [id number] [facility] Unit Status transfused [facility] Product [facility] [id number] [facility] Blood Type Barcode [address] [facility] Expiration Date [id number] S [facility] Blood Bank BLOOD SPECIMEN / Unknown 04/21/2020 6:41 AM CDT 04/21/2020 6:48 AM CDT Marisa James MD LAB - BLOOD BANK ORD ERABLES Performing Organization Address City/[facility]/ZIP Co de Phone Number [facility] [address] [place], [place] [phone] [place] [address] * TYPE + SCREEN PANEL (04/21/2020 6:41 AM CDT) Only the most recent of3 resultswithin the time period is included. ABO Rh A POS 04/21/2020 7:44 AM CDT [facility] Comment:History checked. Antibody Screen NEG 0 7:44 AM CDT [facility] Blood Bank BLOOD SPECIMEN / Unknown Lab Venipuncture / Unknown 04/21/2020 6:41 AM CDT 04/21/2020 6:48 AM CDT Danilo Rodríguez MD LAB - BLOOD BANK ORD ERABLES [facility] [address] [phone] * (ABNORMAL) RENAL FUNCTION PANEL (04/21/2020 6:41 AM CDT) Only the most recent of3 resultswithin the time period is included. Glucose 118(H) 70 - 105 mg/dL 04/21/2020 7:46 AM [facility] Sodium 133(L) 136 - 145 mmol/L 04/21/2020 7:46 AM [facility] Potassium 3.0(L) 3.5 - 5.1 mmol/L 04/21/2020 7:46 AM [facility] Chloride 101 98 - 107 mmol/L 04/21/2020 7:46 AM [facility] CO2 26 23 - 31 mmol/L 04/21/2020 7:46 AM [facility] Calcium 6.9(LL) 8.4 - 10.4 mg/dL 04/21/2020 7:46 AM [facility] Anion Gap 6(L) 8 - 16 mmol/L 04/21/2020 7:46 AM [facility] BUN 13 7 - 18.7 mg/dL 04/21/2020 7:46 AM T [facility] Creatinine 0.65 0.57 - 1.11 mg/dL 04/21/2020 7:46 AM [facility] Albumin 2.1(L) 3.5 - 5.2 gm/dL 04/21/2020 7:46 AM [facility] Phosphorus 3.6 2.3 - 4.7 mg/dL 04/21/2020 7:46 AM [facility] eGFR by MDRD >60 >60 mL/min/1.7 3m2 04/21/2020 7:46 AM CDT [facility] eGFR by MDRD >60 >60 mL/min/1.7 3m2 04/21/2020 7:46 AM [facility] Blood BLOOD SPECIMEN / Unknown Lab Venipuncture / Unknown 04/21/2020 6:41 AM CDT 04/21/2020 6:48 AM CDT Clem Brown MD LAB - CHEMISTRY MIRI GO Performing Organization Address City/[facility]/ZIP Co de Phone Number [facility] [address] [place] [phone] * (ABNORMAL) MAGNESIUM BLOOD (04/21/2020 6:41 AM CDT) Only the most recent of4 resultswithin the time period is included. Magnesium 4.6(H) 1.6 - 2.6 mg/dL 04/21/2020 7:38 AM CDT [facility] Blood BLOOD SPECIMEN / Unknown Lab Venipuncture / Unknown 04/21/2020 6:41 AM CDT 04/21/2020 6:48 AM CDT Clem Brown MD LAB - CHEMISTRY MIRI GO Performing Organization Address [facility] Co de Phone Number [facility] [address] [place] [phone] * (ABNORMAL) LDH BLOOD (04/21/2020 6:41 AM CDT) Only the most recent of4 resultswithin the time period is included. LDH 449(H) 125 - 220 U/L 04/21/2020 7:38 AM CDT [facility] Blood BLOOD SPECIMEN / Unknown Lab Venipuncture / Unknown 04/21/2020 6:41 AM CDT 04/21/2020 6:48 AM CDT Turner Castillo MD LAB - CHEMISTRY MIRI GO Performing Organization Address City/[facility] Co de Phone Number [facility] [address] [place] [phone] * HAPTOGLOBIN (04/21/2020 6:41 AM CDT) Only the most recent of4 resultswithin the time period is included. Haptoglobin 42 30 - 200 mg/dL 04/21/2020 7:38 AM CDT [facility] Blood BLOOD SPECIMEN / Unknown Lab Venipuncture / Unknown 04/21/2020 6:41 AM CDT 04/21/2020 6:48 AM CDT Turner Castillo MD LAB - CHEMISTRY MIRI GO [facility] Organization Address City/State/ZIP Co de Phone Number [facility] [address] [place], [place] [phone] * (ABNORMAL) DIFFERENTIAL MANUAL (04/21/2020 4:45 AM CDT) Only the most recent of3 resultswithin the time period is included. WBC Auto 22.9 x10E9/L 04/21/2020 7:18 AM CDT [facility] WBC Corrected 04/21/2020 7:18 AM CDT [facility] nRBC 3 /100 WBC 04/21/2020 7:18 AM CDT [facility] Neutrophil % Manual 89(H) 44 - 73 % 04/21/2020 7:18 AM CDT [facility] Lymphocytes % Manual 5(L) 20 - 43 % 04/21/2020 7:18 AM CDT [facility] Monocytes % Manual 3(L) 5 - 13 % 2019 7:18 AM CDT [facility] Band % Manual 2 0 - 11 % 04/21/2020 7:18 AM CDT [facility] Fork Manual 1(H) <=0 % 04/21/2020 7:18 AM CDT [facility] Cells Counted 100 # cells 04/21/2020 7:18 AM CDT [facility] WBC Morph Normal 04/21/2020 7:18 AM CDT [facility] Anisocytosis 2+(A) None 04/21/2020 7:18 AM CDT [facility] Polychromasia 1+(A) None 04/21/2020 7:18 AM CDT [facility] Platelet Estimation Normal 04/21/2020 7:18 AM CDT [facility] Blood BLOOD SPECIMEN / Unknown Lab Venipuncture / Unknown 04/21/2020 4:45 AM CDT 04/21/2020 5:51 AM CDT Maikel Ring MD LAB - HEMATOLOGY ORDERABLES Performing Organization Address City/State/[facility] Co de Phone Number [facility] [address] [place] [address] * XR CHEST 2VW (04/20/2020 5:11 PM [...] - 61 U/L 04/20/2020 2:26 PM CDT [facility] Blood BLOOD SPECIMEN / Unknown Lab Venipuncture / Unknown 04/20/2020 10:42 AM CDT 04/20/2020 10:42 AM CDT Ron Quinn MD LAB - CHEMISTRY MIRI GO Performing Organization Address City/[facility] Co de Phone Number [facility] [address] [place] [phone] * AST BLOOD (04/20/2020 10:42 AM CDT) AST 27 5 - 34 U/L 04/20/2020 2:26 PM CDT [facility] Blood BLOOD SPECIMEN / Unknown Lab Venipuncture / Unknown 04/20/2020 10:42 AM CDT 04/20/2020 10:42 AM CDT Ron Quinn MD LAB - CHEMISTRY RIGOBERTOHéctor GO Performing Organization Address [facility] Co de Phone Number [facility] [address] [place] [address] * PTT (04/20/2020 10:41 AM CDT) Only the most recent of5 resultswithin the time period is included. Pathologist [facility] PTT 30.7 23.0 - 38.4 sec 04/20/2020 11:00 AM CD[address] [facility] Blood BLOOD SPECIMEN / Unknown Lab Venipuncture / Unknown 04/20/2020 10:41 AM CDT 04/20/2020 10:41 AM CDT Narrative [facility] - 04/20/2020 11:00 AM CDT Heparin Therapeutic Range for PTT: ??71.0 - 109.0 seconds. Turner Castillo MD LAB - COAGULATION OR DERABLES Performing Organization Address [facility] Co de Phone Number [facility] [address] [place] [address] * PT-INR (04/20/2020 10:41 AM CDT) Only the most recent of5 resultswithin the time period is included. Pathologist [facility] PT 12.3 12.1 - 14.8 sec 04/20/2020 10:59 AM CDT [facility] INR 1.0 0.9 - 1.1 04/20/2020 10:59 AM CDT [facility] Blood BLOOD SPECIMEN / Unknown Lab Venipuncture / Unknown 04/20/2020 10:41 AM CDT 04/20/2020 10:41 AM CDT Narrative [facility] - 04/20/2020 10:59 AM CDT Conventional Warfarin Anticoagulant Therapy: INR Reference Range: ??2.0-3.0 Intensive Warfarin Anticoagulant Therapy: INR Reference Range: ? 2.5-3.5 Turner Castillo MD LAB - COAGULATION OR DERABLES Performing Organization Address [facility] Co de Phone Number [facility] [address] [place] [address] * TRANSFUSE RED BLOOD CELL LEUKOREDUCED UNIT(S) (04/20/2020 2:36 AM CDT) Shayna Chirinos MD NURSING - BLOOD P [place]RI[place] TRANSFUSION * (ABNORMAL) GLUCOSE - POINT OF CARE (04/19/2020 9:02 AM CDT) Only the most recent of7 resultswithin the time period is included. Glucose WB/POC 122(H) 70 - 106 mg/dL 04/19/2020 11:57 PM CDT [facility] Specimen Type Arterial/C apillary 04/19/2020 11:57 PM CDT [facility] Blood BLOOD SPECIMEN / Unknown 04/19/2020 9:02 AM CDT 04/19/2020 11:57 PM CDT Phuong Frazier MD LAB - POINT OF CARE ORDERABLES Performing Organization Address [facility] Healthcare/[facility] de Phone Number [facility] [address] [place] [address] * LACTIC ACID BLOOD (04/19/2020 3:51 AM CDT) Only the most recent of4 resultswithin the time period is included. Lactic Acid 1.2 0.5 - 2.2 mmol/L 04/19/2020 4:27 AM CDT [facility] Blood BLOOD SPECIMEN / Unknown Venipuncture / Unknown 04/19/2020 3:51 AM CDT 04/19/2020 4:05 AM CDT Maikel Ring MD LAB - CHEMISTRY O RDERABLES Performing Organization Address [facility] Co de Phone Number [facility] [address], [place] [phone] * PT PTT PANEL (04/19/2020 3:50 AM CDT) Only the most recent of5 resultswithin the time period is included. PT 12.6 12.1 - 14.8 sec 04/19/2020 4:27 AM CDT [facility] INR 1.0 0.9 - 1.1 04/19/2020 4:27 AM CDT [facility] PTT 27.8 23.0 - 38.4 sec 04/19/2020 4:27 AM CDT [facility] Blood BLOOD SPECIMEN / Unknown Venipuncture / Unknown 04/19/2020 3:50 AM CDT 04/19/2020 4:05 AM CDT Narrative [facility] - 04/19/2020 4:27 AM CDT Conventional Warfarin Anticoagulant Therapy: INR Reference Range: ??2.0-3.0 Intensive Warfarin Anticoagulant Therapy: INR Reference Range: ? 2.5-3.5 Heparin Therapeutic Range for PTT: ??71.0 - 109.0 seconds. Clem Brown MD LAB - COAGULATION OR DERABLES Performing Organization Address [facility] Co de Phone Number [facility] [address] [place] [phone] * TRANSFUSE RED BLOOD CELL LEUKOREDUCED UNIT(S) [...] - 16.0 gm/dL 04/18/2020 12:30 PM CD[address] [facility] Carboxyhemoglobin Arterial 0.3 0.0 - 2.5 % 04/18/2020 12:30 PM [address] [facility] Methemoglobin Arterial 1.2 0.0 - 2.0 % 04/18/2020 12:30 PM CDT [facility] Oxyhemoglobin Arterial 96 % 04/18/2020 12:30 PM CDT [facility] Mode CMV 04/18/2020 12:30 PM CDT [facility] Aamir's Test N/A 04/18/2020 12:30 PM CDT [facility] FI O2 30 % 04/18/2020 12:30 PM CDT [facility] Tidal Volume 450 mL 04/18/2020 12:30 PM CDT [facility] PEEP (cmH2O) 8.0 04/18/2020 12:30 PM CDT [facility] Respiratory Rate 20.0 04/18/20 20 12:30 PM CDT [facility] Sample Site Art Line 04/18/2020 12:30 PM CDT [facility] Sample Type Arterial 04/18/2020 12:30 PM CDT [facility] Cake Mixer ID [id number] 04/18/2020 12:30 PM CDT [facility] Blood, arterial ARTERIAL BLOOD SPECIMEN / Unknown 04/18/2020 12:21 PM CDT 04/18/2020 12:21 PM CDT Clem Brown MD LAB - BLOOD GASES OR DERABLES [facility] [address] [place] [address] * TRANSFUSE RED BLOOD CELL LEUKOREDUCED UNIT(S) [...] - 1.7 % 04/18/2020 9:52 AM CDT [facility] Reticulocyte Absolute 0.0384 0.0041 - 0.0971 x10E6/uL 04/18/2020 9:52 AM CDT [facility] Reticulocyte Immature Fractionated 36.6(H) 0.9 - 14.3 % 04/18/2020 9:52 AM CDT [facility] Hemoglobin Retic 30.2 27.8 - 36.8 pg 04/18/2020 9:52 AM CDT [facility] Blood BLOOD SPECIMEN / Unknown Venipuncture / Unknown 04/18/2020 9:30 AM CDT 04/18/2020 9:42 AM CDT Heraclio Dave MD LAB - HEMATOLOGY ORD ERABLES [facility] [address] [place] [address] * VITAMIN B12 (04/18/2020 9:30 AM CDT) Only the most recent of2 resultswithin the time period is included. Vitamin B12 220 213 - 816 pg/mL 04/18/2020 10:43 AM CDT [facility] Blood BLOOD SPECIMEN / Unknown Venipuncture / Unknown 04/18/2020 9:30 AM CDT 04/18/2020 9:42 AM CDT Heraclio Dave MD LAB - CHEMISTRY MIRI GO Performing Organization Address City/[facility]/ZIP Co de Phone Number [facility] [address] [place] [address] * IMMUNOGLOBULINS IGG/IGM/IGA PANEL (04/18/2020 9:30 AM CDT) Pathologist [facility] IgA 82 65 - 421 mg/dL 04/18/2020 3:33 PM CDT [facility] IgG 1,629 552-1,631 mg/dL 04/18/2020 3:33 PM CDT [facility] IgM 149 33 - 293 mg/dL 04/18/2020 3:33 PM CDT [facility] Blood BLOOD SPECIMEN / Unknown Venipuncture / Unknown 04/18/2020 9:30 AM CDT 04/18/2020 9:42 AM CDT Heraclio Dave MD LAB - CHEMISTRY MIRI GO Performing Organization Address [facility] Co de Phone Number [facility] [address] [place] [phone] * (ABNORMAL) [id number] ANTIBODY (04/18/2020 9:29 AM CDT) [facility] [id number] Antibody 15(H) <12 Units/mL 04/22/2020 5:07 PM CDT [facility] ([facility]) Comment: Results for this test are for research purposes only by the assay's administrative assistant office manager. ??The performance characteristics of this product have not been established. ??Results should not be used as a diagnostic procedure without confirmation of the diagnosis by another medically established diagnostic product or procedure. Blood BLOOD SPECIMEN / Unknown Venipuncture / Unknown 04/18/2020 9:29 AM CDT 04/18/2020 9:42 AM CDT Narrative [facility] ([facility]) - 04/22/2020 5:07 PM CDT Performed at: ??01 - [facility] ??[id number] Customer Management Specialist: Kiran Guerra MD, Phone: ??[phone] Heraclio Dave MD LAB - COAGULATION OR DERABLES Performing Organization Address City/[facility]/ZIP Co de Phone Number [facility] ([facility]) [address] [place] [address] * REF LAB COMMENT (04/18/2020 9:29 AM CDT) Comment Comment 04/20/2020 7:06 PM CDT [facility] ([facility]) Comment: Severe deficiency of PSXCHL68 (less than 10% activity) is a relatively specific finding in patients with a clinical diagnosis of either hereditary or acquired thrombotic thrombocytopenic purpura (TTP). Normal to moderately reduced ITYVIA06 activity results do not exclude a diagnosis of TTP. Conditions that could have BIRGRN67 activity greater than 10% include hemolytic uremic syndrome (HUS), atypical hemolytic uremic syndrome (aHUS), and other thrombotic microangiopathies associated with hematopoietic stem cell and solid organ transplantation, liver disease, DIC, sepsis, , or effects of certain medications (eg, clopidogrel, cyclosporine, mitomycin C, quinine). Blood BLOOD SPECIMEN / Unknown Venipuncture / Unknown 04/18/2020 9:29 AM CDT 04/18/2020 9:42 AM CDT [facility] ([facility]) - 04/20/2020 7:06 PM CDT Performed at: ??01 - [address] ??[id number] Customer Management Specialist: Kiran Guerra MD, Phone: ??[phone] Heraclio Dave MD LAB - CHEMISTRY ORDE RABLES Performing Organization Address City/[facility]/ZIP Co de Phone Number [facility]) [address] [place] [address] * (ABNORMAL) [id number] ACTIVITY (04/18/2020 9:29 AM CDT) [id number] Activity 41.7(L) >66.8 % 04/20/2020 7:06 PM CDT [facility] ([facility]) Blood BLOOD SPECIMEN / Unknown Venipuncture / Unknown 04/18/2020 9:29 AM CDT 04/18/2020 9:42 AM CDT Narrative [facility] ([facility]) - 04/20/2020 7:06 PM CDT Test(s) [id number] Activity was developed and its performance characteristics determined by [facility]. It has not been cleared or approved by the Food and Drug Administration. Performed at: ??01 - [facility] [address] [place] [address] ??[id number] Customer Management Specialist: Kiran Guerra MD, Phone: ??[phone] Heraclio Dave MD LAB - COAGULATION OR DERABLES [facility] ([facility]) [address] [place] [address] * BESSY DIRECT (04/18/2020 9:29 AM CDT) Direct Bessy (LANDY) NEG 04/18/2020 10:25 AM CDT [facility] Blood Bank BLOOD SPECIMEN / Unknown Venipuncture / Unknown 04/18/2020 9:29 AM CDT 04/18/2020 9:43 AM CDT Heraclio Dave MD LAB - BLOOD BANK ORD ERABLES Performing Organization Address [facility] Co de Phone Number [facility] [address] [place] [address] * FIBRINOGEN ACTIVITY (04/18/2020 9:29 AM CDT) Only the most recent of6 resultswithin the time period is included. Fibrinogen 217 200 - 400 mg/dL 04/18/2020 9:59 AM CDT [facility] Blood BLOOD SPECIMEN / Unknown Venipuncture / Unknown 04/18/2020 9:29 AM CDT 04/18/2020 9:42 AM CDT Annabella Johnson MD LAB - COAGULATION OR DERABLES Performing Organization Address City/[facility]/ZIP Co de Phone Number [facility] [address] [place] [address] * PATHOLOGY PERIPHERAL SMEAR REVIEW (04/18/2020 8:31 AM CDT) Only the most recent of2 resultswithin the time period is included. Case Report Pathology Interpretation Report ? Case: [id number] ? Authorizing Provider: ??Heraclio Dave MD ? Collected: ? 04/18/2020 08:31 AM ? Ordering Location: ? [facility] 4 ICU MEDICAL ? Received: ?04/18/2020 08:31 AM ? Pathologist: ? Kathleen Clay, ? MD ? Specimen: ?Blood ? 04/18/2020 2:22 PM CDT [facility] Final Diagnosis Final diagnosis: - Leukocytosis with left-shift - Normocytic, normochromic anemia - Severe thrombocytopenia A comparison with a previous slide was requested ([id number]). Review of the morphologic and differential count [...] correlation is advised. 04/18/2020 2:22 PM CDT [facility] Blood BLOOD SPECIMEN / Unknown 04/18/2020 8:31 AM CDT 04/18/2020 8:31 AM CDT Heraclio Dave MD LAB - PATHOLOGY/CYTO LOGY ORDERABLES Performing Organization Address City/State/[facility] Co de Phone Number [facility] [address], [place] [phone] * XR CHEST 1VW PORTABLE (04/18/2020 8:15 [...] 12.1 - 14.8 sec 04/18/2020 8:[facility] 1.1 0.9 - 1.1 04/18/2020 8:29 AM CDT [facility] PTT 27.5 23.0 - 38.4 sec 04/18/2020 8:29 AM [facility] Fibrinogen 278 200 - 400 mg/dL 04/18/2020 8:29 AM [facility] D-Dimer 3.18(H) 0.27 - 0.50 ug/mL FEU 04/18/2020 8:29 AM [facility] Platelet Count 51(L) 153 - 416 x10E9/L 04/18/2020 8:29 AM [facility] Blood BLOOD SPECIMEN / Unknown [...] Brown MD LAB - COAGULATION OR DERABLES [facility] [address] [place] [phone] * (ABNORMAL) SLIDE SCAN HEMATOLOGY (04/18/2020 5:37 AM CDT) Only the most recent of3 resultswithin the time period is included. [facility] Platelet Estimation Decrease d(A) Normal, Adequate platelets 04/18/2020 7:07 AM CDT [facility] Anisocytosis 1+(A) None 04/18/2020 7:07 AM CDT [facility] Poikilocytosis 1+(A) None 04/18/2020 7:07 AM CDT [facility] Polychromasia Occasion al(A) None 04/18/2020 7:07 AM CDT [facility] [place] Cells 1+(A) None 04/18/2020 7:07 AM CDT [facility] Blood BLOOD SPECIMEN / Unknown Venipuncture / Unknown 04/18/2020 5:37 AM CDT 04/18/2020 5:45 AM CDT Maikel Ring MD LAB - HEMATOLOGY ORDERABLES Performing Organization Address City/[facility]/ZIP Co de Phone Number [facility] [address] [place] [address] * (ABNORMAL) TRIGLYCERIDES BLOOD (04/18/2020 5:37 AM CDT) [facility] Triglycerides 160(H) <150 mg/dL 04/18/2020 8:16 AM CDT [facility] Blood BLOOD SPECIMEN / Unknown Venipuncture / Unknown 04/18/2020 5:37 AM CDT 04/18/2020 5:45 AM CDT Snehal Crowe MD LAB - CHEM ISTRY ORDERABLES [facility] [address] [place] [address] * HEMOGLOBIN A1C (04/18/2020 4:13 AM CDT) [facility] Hemoglobin A1c 5.2 4.2 - 5.6 % 04/18/2020 6:37 AM CDT [facility] Estimated Average Glucose 103 mg/dL 04/18/2020 6:37 AM CDT [facility] Blood BLOOD SPECIMEN / Unknown Venipuncture / Unknown 04/18/2020 4:13 AM CDT 04/18/2020 4:16 AM CDT Narrative [facility] - 04/18/2020 6:37 AM CDT The following cutoff levels are recommended by [employer]. ?? A1c ??> 6.5% : [...] Ring MD LAB - CHEMISTRY O RDERABLES [facility] [address] [place] [address] * (ABNORMAL) BLOOD GASES CORD JEREMY (04/18/2020 3:12 AM CDT) Only the most recent of2 resultswithin the time period is included. Pathologist [facility] pH Cord Venous 6.98(LL) 7.28 - 7.40 [...] Aamir's Test N/A 04/18/2020 3:26 AM CDT [facility] Sample Site Other 04/18/2020 3:26 AM CDT [facility] Sample Type Cord Blood Venous 04/18/2020 3:26 AM CDT [facility] TH[facility]AP[facility] Cake Mixer ID [id number] 04/18/2020 3:26 AM CDT [facility] Notified Who jerrod it project coordinator 04/18/2020 3:26 AM CDT [facility] Notification Time 04/18/2020 03:26 04/18/2020 3:26 AM CDT [facility] Notified By octavia acidizer water well 04/18/2020 3:26 AM CDT [facility] Blood CORD BLOOD SPECIMEN / Unknown 04/18/2020 3:12 AM CDT 04/18/2020 3:12 AM CDT Afsaneh Sandoval MD LAB - BLOOD GASES OR DERABLES [facility] [address] [phone] * (ABNORMAL) BLOOD GASES CORD ARTERIAL (04/18/2020 3:12 AM CDT) Only the most recent of2 resultswithin the time period is included. pH Cord Arterial 6.92(LL) 7.20 - 7.34 pH 04/18/2020 3:27 AM CDT [facility] Comment:LL pCO2 Cord Arterial 89(HH) 45 - 55 mm hg 04/18/2020 3:27 AM CDT [facility] Comment:HH pO2 Cord Arterial 04/18/2020 3:27 AM CDT [facility] Comment:< HCO3 Cord Arterial 18.0(L) 22.0 - 24.0 mmol/L 04/18/2020 3:27 AM CDT [facility] Comment:L BE Cord Arterial -16.3 mmol/L 04/18/20 20 3:27 AM CDT [facility] O2 Saturation Cord Arterial 04/18/2020 3:27 AM CDT [facility] Comment:< Aamir's Test N/A 04/18/2020 3:27 AM CDT [facility] Sample Site Other 04/18/2020 3:27 AM CDT [facility] Sample Type Cord blood Arterial 04/18/2020 3:27 AM CDT [facility] Cake Mixer ID [id number] 04/18/2020 3:27 AM CDT [facility] Notified Renea elder it project coordinator 04/18/2020 3:27 AM CDT [facility] Notification Time 04/18/2020 03:27 04/18/2020 3:27 AM CDT [facility] Notified By octavia morrissey 04/18/2020 3:27 AM CDT [facility] Blood, arterial CORD BLOOD SPECIMEN / Unknown 04/18/2020 3:12 AM CDT 04/18/2020 3:12 AM CDT Afsaneh Sandoval MD LAB - BLOOD GASES OR DERABLES Performing Organization Address City/State/[facility] Co de Phone Number [facility] [address] [place] [address] * ETT LINE PERFORMABLE (04/18/2020 3:04 AM CDT) Narrative Ying oR APRN-GRIPPER ATTACHER - 04/18/2020 3:04 AM CDT Ying Ro APRN-CRNA ? 04/18/2020 ??3:04 AM Endotracheal Tube Placement: ? Patient Location: OB. Intubation Event Date/Time: ??04/18/2020 2:51 AM Procedure: intubation ([id number]). Procedure Section: ?? Sedation: under general anesthesia. [...] Reactive Non Reactive 04/17/2020 10:02 PM CDT [facility] Comment: No Laboratory evidence of syphilis infection. ?? Note: ??Circulating antibodies may be low or undetectable in early infection. ??If recent exposure is suspected, re-draw sample in 2-4 weeks and repeat testing. Blood BLOOD SPECIMEN / Unknown Venipuncture / Unknown 04/17/2020 8:57 PM CDT 04/17/2020 9:09 PM CDT Mayuri Norton MD LAB - SEROLOGY ORDER CRUZITO [facility] [address] [place] [address] * HIV-1 HIV-2 ANTIBODY + HIV P24 AG PANEL (04/17/2020 8:57 PM CDT) Only the most recent of2 resultswithin the time period is included. HIV1/2 Ab + P24 Ag Non Reactive Non Reactive 04/17/2020 10:02 PM CDT [facility] Blood BLOOD SPECIMEN / Unknown Venipuncture / Unknown 04/17/2020 8:57 PM CDT 04/17/2020 9:09 PM CDT Narrative [facility] - 04/17/2020 10:02 PM CDT No Laboratory evidence of HIV infection. Mayuri Norton MD LAB - CHEMISTRY MIRI GO [facility] [address] [place] [address] * (ABNORMAL) URINALYSIS REFLEX TO MICROSCOPIC NO CULTURE (04/17/2020 8:57 PM CDT) Color UA Yellow Straw, Yellow 04/17/2020 9:18 PM [address] [facility] Clarity UA Slt Cloudy(A) Clear 04/17/2020 9:18 PM [address] [facility] Glucose UA Negative Negative 04/17/2020 9:18 PM CD[address] [facility] Bilirubin UA Negative Negative 04/17/2020 9:18 PM CDT [facility] Ketone UA Negative Negative 04/17/2020 9:18 PM CDT [facility] Specific [place] UA 1.015 1.005 - 1.030 04/17/2020 9:18 PM CD[address] [facility] Blood UA 3+(A) Negative 04/17/2020 9:18 PM CDT [facility] pH UA 6.0 5.0 - 8.0 pH 04/17/2020 9:18 PM CDT [facility] Protein UA 1+(A) Negative 04/17/2020 9:18 PM CDT [facility] Urobilinogen UA Negative Negative mg/dL 04/17/2020 9:18 PM CDT [facility] Nitrite UA Negative Negative 04/17/2020 9:18 PM CD[address] [facility] Leukocyte UA Negative Negative 04/17/2020 9:18 PM CDT [facility] Urine Microscopy Urine microscopy to follow 04/17/2020 9:18 PM CDT [facility] Urine URINE SPECIMEN OBTAINED BY CLEAN CATCH PROCEDURE / Unknown Collection / Unknown 04/17/2020 8:57 PM CDT 04/17/2020 9:08 PM CDT Narrative [facility] - 04/17/2020 9:18 PM CDT Annabella Johnson MD LAB - URINALYSIS ORD ERABLES Performing Organization Address [facility] Co de Phone Number [facility] [address] [place], [place] [phone] * (ABNORMAL) URINE MICROSCOPIC ONLY (04/17/2020 8:57 PM CDT) RBC UA >100(A) None Seen, 0-2, 3-5 # /hpf 04/17/2020 9:47 PM CDT [facility] WBC UA 6-10(A) None Seen, 0-5 # /hpf 04/17/2020 9:47 PM CDT [facility] Bacteria UA None Seen None Seen 04/17/2020 9:47 PM CDT [facility] Squamous Epithelial Cells 6-10(A) None Seen, 0-2, 3-5 /hpf 04/17/2020 9:47 PM CDT [facility] Urine URINE SPECIMEN OBTAINED BY CLEAN CATCH PROCEDURE / Unknown Collection / Unknown 04/17/2020 8:57 PM CDT 04/17/2020 9:08 PM CDT Narrative [facility] - 04/17/2020 9:47 PM CDT Annabella Johnson MD LAB - URINALYSIS ORD ERABLES Performing Organization Address [facility] de Phone Number [facility] [address] [place] [address] * (ABNORMAL) RUBELLA ANTIBODY IGG (04/17/2020 8:57 PM CDT) Only the most recent of2 resultswithin the time period is included. Rubella Antibody <0.90(L) Immune >0.99 index 04/19/2020 7:09 AM CDT [facility] ([facility]) Comment: ?Non-immune ? <0.90 ?Equivocal ??0.90 - 0.99 ?Immune ? >0.99 Blood BLOOD SPECIMEN / Unknown Venipuncture / Unknown 04/17/2020 8:57 PM CDT 04/17/2020 9:09 PM CDT Narrative [facility] ([facility]) - 04/19/2020 7:09 AM CDT Performed at: ??01 - [facility] [address] [facility], [place], [place] [id number] Customer Management Specialist: Tyrone Rider PhD, Phone: ??[phone] Mayuri Norton MD LAB - SEROLOGY ORDER CRUZITO [facility]) [address] [place] [address] * (ABNORMAL) CULTURE URINE (04/17/2020 8:57 PM CDT) Only the most recent of2 resultswithin the time period is included. Culture Urine 50,000-100,000 CFU/mL Escherichia coli(A) BERT 04/19/2020 10:33 AM CDT [facility] Culture Urine 50,000-100,000 CFU/mL Streptococcus agalactiae (Group B)(A) 04/19/2020 10:33 AM CDT [facility]CRO[facility] Culture Urine 50,000-100,000 CFU/mL urogenital aneudy BERT 04/19/2020 10:33 AM CDT [facility]CRO[facility] Urine URINE SPECIMEN OBTAINED BY CLEAN CATCH PROCEDURE / Unknown Collection / Unknown 04/17/2020 8:57 PM CDT 04/17/2020 9:08 PM CDT Narrative [facility] - 04/19/2020 10:33 AM CDT Susceptibility [...] Johnson MD LAB - MICROBIOLOGY O RDERABLES [facility] MICRO[facility]OLOG[facility] [address] [facility] [address] [phone] * (ABNORMAL) DRUG SCREEN TOX URINE PANEL (04/17/2020 8:57 PM CDT) Only the most recent of3 resultswithin the time period is included. [facility] Amphetamines Screen Urine Detected(A) Not detected 04/17/2020 9:38 PM CDT [facility] Barbiturates Screen Urine Not detected Not detected 04/17/2020 9:38 PM CDT [facility] Benzodiazepines Screen Urine Not detected Not detected 04/17/2020 9:38 PM CDT [facility] Cannabinoids Screen Urine Not detected Not detected 04/17/2020 9:38 PM CDT [facility] Cocaine Screen Urine Not detected Not detected 04/17/2020 9:38 [address] [facility] Fentanyl Urine Not detected Not detected 04/17/2020 9:38 PM [address] [facility] Methadone Screen Urine Not detected Not detected 04/17/2020 9:38 PM [address] [facility] Opiate Screen Urine Not detected Not detected 04/17/2020 9:38 PM [address] [facility] Phencyclidine Screen Urine Not detected Not detected 04/17/2020 9:38 PM [address] [facility] Urine URINE / Unknown Collection / Unknown 04/17/2020 8:57 PM CDT 04/17/2020 9:08 PM CDT Narrative [facility] - 04/17/2020 9:38 PM CDT This [...] MD LAB - URINE CHEMISTR Y ORDERABLES [facility] [address] [place] [address] * BLOOD TYPE VERIFICATION (04/17/2020 8:24 PM CDT) Only the most recent of2 resultswithin the time period is included. ABO Rh A POS 04/17/2020 8:4 7 PM [address] [facility] Blood Bank BLOOD SPECIMEN / Unknown Venipuncture / Unknown 04/17/2020 8:24 PM CDT 04/17/2020 8:24 PM CDT Phuong Frazier MD LAB - BLOOD BANK OR DERABLES Performing Organization Address City/[facility]/ZIP Co de Phone Number [facility] [address] [phone] * PREPARE (CROSSMATCH) RBC UNIT(S), 1 Units (04/17/2020 8:12 PM CDT) Only the most recent of7 resultswithin the time period is included. Unit Description AS1 LR PRBC [facility] Unit ABO A [facility] Unit Rh POS [facility] Product [facility] R[address] [facility] Unit Donor # [id number] [facility] Unit Status released [facility] Product Code [id number] [facility] Blood Type Barcode [address] [facility] Expiration Date S [facility] Unit Description AS1 LR PRBC [facility] Unit ABO A [facility] Unit Rh POS [facility] Product [facility] [id number] [facility] Unit Donor # [id number] [facility] BLOOD BANK LAB Unit Status transfused [facility] Product Code [id number] [facility] Blood Type Barcode [address] [facility] Expiration Date S [facility] Blood Bank BLOOD SPECIMEN / Unknown 04/17/2020 8:12 PM CDT 04/17/2020 8:16 PM CDT Shayna Chirinos MD LAB - BLOOD BANK ORDERABLES [facility] [address] [phone] * PREPARE CRYOPRECIPITATE UNIT (S), 2 Units (04/17/2020 8:12 PM CDT) Unit Description Thawed Cryp Clsd [facility] Unit ABO A [facility] Unit Rh POS [facility] Product Number [id number] [facility] Unit Donor # [id number] [facility] B[facility]OD [facility] LAB Unit Status transfused [facility] Product Code [id number] [facility] Blood Type Barcode [address] [facility] Expiration Date S [facility] Unit Description Thawed Cryp Clsd [facility] Unit ABO A [facility] Unit Rh POS [facility] Product Number [id number] [facility] Unit Donor # [id number] [facility] B[facility]OD [facility] LAB Unit Status transfused [facility] Product Code [id number] [facility] Blood Type Barcode [address] [facility] Expiration Date S [facility]OD [facility] Blood Bank BLOOD SPECIMEN / Unknown 04/17/2020 8:12 PM CDT 04/17/2020 8:16 PM CDT Phuong Frazier MD LAB - BLOOD BANK OR DERABLES [facility] [address] [place] [address] * PREPARE PLATELET PHERESIS UNIT(S), 2 Units (04/17/2020 8:12 PM CDT) Only the most recent of3 resultswithin the time period is included. Unit Description LR PLT Pher IRR [facility] Unit ABO AB [facility] Unit Rh POS [facility] Product Number P[address] [facility] Unit Donor # [id number] [facility] BLOOD [facility] LAB Unit Status transfused [facility] Product Code [id number] [facility] Blood Type Barcode [address] [facility] Expiration Date S [facility] Unit Description LR PLT Pheresis [facility] Unit ABO A [facility] Unit Rh POS [facility] Product Number P[address] [facility] Unit Donor # [id number] [facility] BLOOD [facility] LAB Unit Status released [facility] Product Code [id number] [facility] Blood Type Barcode [address] [facility] Expiration Date S [facility] Unit Description LR PLT Pheresis [facility] Unit ABO A [facility] Unit Rh POS [facility] Product Number P[address] [facility] Unit Donor # [id number] [facility] BLOOD BANK LAB Unit Status released [facility] Product Code [id number] [facility] Blood Type Barcode [address] [facility] Expiration Date S [facility] Blood Bank BLOOD SPECIMEN / Unknown 04/17/2020 8:12 PM CDT 04/17/2020 8:16 PM CDT Afsaneh Sandoval MD LAB - BLOOD BANK ORD ERABLES [facility] [address] [phone] * SONOGRAM - COMPLETE (01/23/2020 2:48 PM CDT) Only the most recent of2 resultswithin the time period is included. Anatomical Region Laterality Modality Other 01/23/2020 2:48 PM CDT Narrative 01/23/2020 4:21 PM CDT ? [facility] ? [facility] & Care Center ?PHONE: ??FAX: FETUS A Pat. Name: ?HILLARY DO No: ?[id number] Study Date: ?? 01/23/2020 ??2:48pm , Age: ? 1990, 29 Pregnancies: ?? 4, Para 2, Ab 1 Height: ? 63 in Weight: ? 117 lb LMP: ?Unknown GA by Base: ?? 25w6d ?? FABIAN: 05/01/2020 GA by US: ? 25w2d ?? FABIAN: 05/05/2020 GA Selected: ??25w6d (From [facility]) FABIAN: ?05/01/2020 Referring MD: Edgard, , [facility] Coremaker Experimental: ??Cintia Messina, VISHNU, RVT CPT4: ? 93941 x2,[phone] BMI: ?20.72 Hist/Ind: ? DC/DA Twins ? Anatomy Screen ?Tobacco Use ?Marijuana/Methamphetamine ?use in early MEASUREMENTS & AGE ? GROWTH EVALUATION Measurement ??GA ? Range ? Srce %for GA Ratios ----- ---- ------- BPD ??6.1 cm 24w5d (94e5r-50y1b) Hadl BPD 9% FL/BPD 0.75 (0.71 - 0.87) HC ??23.0 cm 25w0d (48e5r-05y2x) Hadl HC ??7% FL/AC ??0.21 (0.20 - 0.24) AC ??21.7 cm 26w1d (81u7x-48m0l) Hadl AC ??53% HC/AC ??1.06 (1.01 - 1.20) FL ?? 4.5 cm 25w0d (87e2g-30u2z) Hadl FL ??15% CI ? 0.74 (0.70 - 0.86) HL ?? 4.4 cm 26w1d (99e6c-58p9g) Dontae HL ??55% GA for sonogram 25w2d (69t3q-69c8i) ?? Weight Estimate: based on (BPD,HC,AC,FL) Avg [...] FETUS B Pat. Name: ?HILLARY DO. No: ?[id number] Study Date: ?? 01/23/2020 ??2:48pm , Age: ? 1990, 29 Pregnancies: ?? 4, Para 2, Ab 1 Height: ? 63 in Weight: ? 117 lb LMP: ?Unknown GA by Base: ?? 25w6d ?? FABIAN: 05/01/2020 GA by US: ? 25w1d ?? FABIAN: 05/06/2020 GA Selected: ??25w6d (From [facility]) FABIAN: ?05/01/2020 Referring MD: Edgard, , [facility] Coremaker Experimental: ??Cintia Messina, VISHNU, RVT CPT4: ? 13563 x2,[phone] Hist/Ind: ? DC/DA Twins ? Anatomy Screen ?Tobacco Use ?Marijuana/Methamphetamine ?use in early MEASUREMENTS & AGE ? GROWTH EVALUATION Measurement ??GA ? Range ? Srce %for GA Ratios ----- ---- ------- BPD ??5.9 cm 24w0d (32z8w-66b0h) Hadl BPD 2% FL/BPD 0.77 (0.71 - 0.87) HC ??22.4 cm 24w3d (35k9g-93f0l) Hadl HC ??2% FL/AC ??0.20 (0.20 - 0.24) AC ??22.7 cm 27w0d (25g0n-52f9k) Hadl AC ??78% HC/AC ??0.99 (1.01 - 1.20* FL ?? 4.5 cm 25w0d (25g4c-64x1s) Hadl FL ??15% CI ? 0.74 (0.70 - 0.86) HL ?? 4.2 cm 25w1d (65h4u-55g5q) Dontae HL ??38% GA for sonogram 25w1d (14b1y-37w3a) ?? Weight Estimate: based on (BPD,HC,AC,FL) Avg [...] <Electronic Signature> ??01/23/2020 04:18pm Walter Mota MD [facility] ORDERABLES * RPR W REFLEX TO TITER (MONITOR) (12/19/2019 3:22 PM CDT) [facility] RPR Monitor Nonreactive Nonreactive 12/20/2019 7:32 AM CDT [facility] Blood BLOOD SPECIMEN / Unknown Venipuncture / Unknown 12/19/2019 3:22 PM CDT 12/19/2019 3:40 PM CDT Phuong Quinones MD LAB - CHEMISTRY MIRI GO [facility] [address] [phone] * IMAGING RADIOLOGY XRAY RESULTS ORDER (12/11/2019 [...] - 38.4 Seconds 12/11/2019 10:03 AM CDT [facility] PT 12.3 12.1 - 14.8 Seconds 12/11/2019 10:03 AM [facility] INR 0.9 See Comment 12/11/2019 10:03 AM [facility] Buffer 41.1 Seconds 020 10:03 AM [facility] Phospholipid 38.7 Seconds 12/11/2019 10:03 AM [facility] Delta 2.4 <8.0 Seconds 12/11/2019 10:03 AM [facility] Interpretation [facility] Negative 12/11/2019 10:03 AM [facility] Comment:Up to 15-20% of jhony ents [...] Pino MD LAB - HEMATOLOGY ORD ERABLES [facility] [address] [phone], [facility] [phone] * HEPATITIS C RNA QUANTITATIVE (12/08/2019 11:34 AM CDT) Only the most recent of2 resultswithin the time period is included. [facility] Hepatitis C Virus Quantitation [id number] IU/mL 12/19/2019 5:07 PM CDT [facility] ([facility]) Hepatitis C Virus Log 10 5.959 log10 IU/mL 12/19/2019 5:07 PM CDT [facility] Test Information Comment 12/19/19 5:07 PM CDT [facility] Comment:The quantitative ran ge of this assay is 15 IU/mL to 100 million IU/mL. Blood BLOOD SPECIMEN / Unknown Lab Venipuncture / Unknown 12/08/2019 11:34 AM CDT 12/08/2019 1:41 PM CDT Narrative [facility] ([facility]) - 12/19/2019 5:07 PM CDT Performed at: ??01 - [facility] [address] ??[id number] Customer Management Specialist: Kiran Guerra MD, Phone: ??[phone] Christiano Pino MD LAB - CHEMISTRY MIRI GO [facility] ([facility]) [address] [place] [address] * (ABNORMAL) CARDIOLIPIN ANTIBODY IGG/IGM PANEL (12/08/2019 11:34 AM CDT) [facility] Cardiolipin Antibody IgG <9 0 - 14 GPL U/mL 12/11/2019 4:09 PM CDT [facility] Comment: ?Negative: ?<15 ?Indeterminate: ? 15 - 20 ?Low-Med Positive: >20 - 80 ?High Positive: ? >80 Cardiolipin Antibody IgM 29(H) 0 - 12 MPL U/mL 12/11/2019 4:09 PM CDT [facility] ([facility]) Comment: ?Negative: ?<13 ?Indeterminate: ? 13 - 20 ?Low-Med Positive: >20 - 80 ?High Positive: ? >80 Blood BLOOD SPECIMEN / Unknown Lab Venipuncture / Unknown 12/08/2019 11:34 AM CDT 12/08/2019 12:32 PM CDT Narrative [facility] ([facility]) - 12/11/2019 4:09 PM CDT Performed at: ??01 - [facility] [address] [place], [place] ??[id number] Customer Management Specialist: Tyrone Rider PhD, Phone: ??[phone] Christiano Pino MD LAB - SEROLOGY ORDER CRUZITO Performing Organization Address City/State/[facility] Co de Phone Number [facility] ([facility]) [address] [place] [address] * MARQUITA BLOOD SCREEN W/REFLEX TITER (12/08/2019 11:34 AM CDT) MARQUITA Negative Negative 12/10/2019 10:30 AM CDT [facility] Blood BLOOD SPECIMEN / Unknown Lab Venipuncture / Unknown 12/08/2019 11:34 AM CDT 12/08/2019 12:31 PM CDT Narrative [facility] - 12/10/2019 10:30 AM CDT Methodology: Indirect Immunofluorescence Assay (IFA) utilizing Hep-2-Gamma cells. Christiano Pino MD LAB - CHEMISTRY MIRI GO [facility] [address] [place] [address] * BETA-2 GLYCOPROTEIN 1 ANTIBODY IGG/IGM PANEL (12/08/2019 11:34 AM CDT) [facility] Beta-2 Glycoprotein I Antibody IgG <9 0 - 20 GPI IgG units 12/12/2019 3:35 AM CDT [facility] ([facility]) Comment: The reference interval reflects a 3SD or 99th percentile interval, which is thought to represent a potentially clinically significant result in accordance with the International Consensus Statement on the classification criteria for definitive antiphospholipid syndrome (APS). J Thromb Haem 2006;4:295-306. Beta-2 Glycoprotein I Antibody IgM 9 0 - 32 GPI IgM units 12/12/2019 3:35 AM CDT [facility] ([facility]) Comment: The reference interval reflects a 3SD or 99th percentile interval, which is thought to represent a potentially clinically significant result in accordance with the International Consensus Statement on the classification criteria for definitive antiphospholipid syndrome (APS). J Thromb Haem 2006;4:295-306. Blood BLOOD SPECIMEN / Unknown Lab Venipuncture / Unknown 12/08/2019 11:34 AM CDT 12/08/2019 12:32 PM CDT Narrative [facility] ([facility]) - 12/12/2019 3:35 AM CDT Performed at: ??01 - [facility] [address] ??[id number] Customer Management Specialist: Kiran Guerra MD, Phone: ??[phone] Christiano Pino MD LAB - CHEMISTRY MIRI GO [facility] ([facility]) [address] [place] [address] * (ABNORMAL) HEPATITIS SCREEN ACUTE (12/08/2019 11:34 AM CDT) [facility] HAV Antibody IgM Non Reactive Non Reactive 12/08/2019 1:48 PM CDT [facility] HBsAg Non Reactive Non Reactive 12/08/2019 1:48 PM CDT [facility] HBc Antibody IgM Non Reactive Non Reactive 12/08/2019 1:48 PM CDT [facility] HCV Antibody Screen REACTIVE(A) Non Reactive 12/08/2019 1:48 PM CDT [facility] Blood BLOOD SPECIMEN / Unknown Lab Venipuncture / Unknown 12/08/2019 11:34 AM CDT 12/08/2019 12:32 PM CDT Narrative [facility] - 12/08/2019 1:48 PM CDT A reactive result is consistent with current HCV infection or past HCV infection that has been resolved. Reflex testing to Hepatitis C Virus RNA Quantitative, Real Time PCR will be performed. See separate report. Christiano Pino MD LAB - CHEMISTRY MIRI GO Performing Organization Address [facility] Co de Phone Number [facility] [address] [place], [place] [phone] * TSH REFLEX FREE T4 (12/08/2019 7:03 AM CDT) Pathologist [facility] TSH 0.826 0.350 - 4.940 uIU/mL 12/08/2019 11:02 AM CDT [facility] Blood BLOOD SPECIMEN / Unknown Lab Venipuncture / Unknown 12/08/2019 7:03 AM CDT 12/08/2019 7:48 AM CDT Christiano Pino MD LAB - CHEMISTRY MIRI GO Performing Organization Address [facility] Co de Phone Number [facility] [address] [place], [place] [phone] * (ABNORMAL) CYTOMEGALOVIRUS ANTIBODY IGG/IGM BLOOD (12/08/2019 7:03 AM CDT) Cytomegalovirus Antibody IgG 5.40(H) 0.00 - 0.59 U/mL 12/10/2019 8:08 AM CDT [facility] ([facility]) Comment: ? Negative ?<0.60 ? Equivocal ?? 0.60 - 0.69 ? Positive ?>0.69 Cytomegalovirus Antibody IgM <30.0 0.0 - 29.9 AU/mL 12/10/2019 8:08 AM CDT [facility] ([facility]) Comment: ?Negative ? <30.0 ?Equivocal ??30.0 - 34.9 ?Positive ? >34.9 A positive result is generally indicative of acute infection, reactivation or persistent IgM production. Blood BLOOD SPECIMEN / Unknown Lab Venipuncture / Unknown 12/08/2019 7:03 AM CDT 12/08/2019 7:48 AM CDT Narrative [facility] ([facility]) - 12/10/2019 8:08 AM CDT Performed at: ??01 - [facility] [address] [place], [place] ??[id number] Customer Management Specialist: Tyrone Rider PhD, Phone: ??[phone] Pattie Castellon MD LAB - CHEMISTRY ORD ERABLES [facility] ([facility]) [address] [place] [address] * RUBELLA ANTIBODY IGM TITER (12/08/2019 7:03 AM CDT) Rubella Antibody IgM <20.0 0.0 - 19.9 AU/mL 12/10/2019 8:08 AM CDT [facility] ([facility]) Comment: ? Negative ?<20.0 ? Equivocal ? 20.0 - 24.9 ? Positive ?>24.9 Blood BLOOD SPECIMEN / Unknown Lab Venipuncture / Unknown 12/08/2019 7:03 AM CDT 12/08/2019 8:17 AM CDT Narrative [facility] ([facility]) - 12/10/2019 8:08 AM CDT Performed at: ??01 - [facility] [address] [facility], [place], [place] ??[id number] Customer Management Specialist: Tyrone Rider PhD, Phone: ??[phone] Asuncion Aparicio MD LAB - SEROLOGY ORDER CRUZITO Performing Organization Address City/State/[facility] Co de Phone Number [facility] ([facility]) [address] [place] [address] * HEMOGLOBIN ELECTROPHORESIS (12/08/2019 7:03 AM CDT) Hemoglobin A1 98.3 97.1 - 99.1 % 12/12/2019 10:19 AM CDT [facility] Hemoglobin F 0.0 0.0 - 2.0 % 12/12/2019 10:19 AM CDT [facility] Hemoglobin S 0.0 <=0.0 % 12/12/2019 10:19 AM CDT [facility] Hemoglobin C 0.0 <=0.0 % 12/12/2019 10:19 AM CDT [facility] Hemoglobin A2 1.7 0.9 - 2.9 % 12/12/2019 10:19 AM CDT [facility] Hemoglobin E 0.0 % 12/12/2019 10:19 AM CDT [facility] Interpretation Normal Interpretation 12/12/2019 10:19 AM CDT [facility] Blood BLOOD SPECIMEN / Unknown Lab Venipuncture / Unknown 12/08/2019 7:03 AM CDT 12/08/2019 7:48 AM CDT Pattie Castellon MD LAB - CHEMISTRY RIGOBERTO DOSS Performing Organization Address [facility] Co de Phone Number [facility] [address] [place] [phone] * HEPATITIS B SURFACE ANTIGEN W RFLX CONFIRMATION (12/08/2019 7:03 AM CDT) HBsAg Non Reactive Non Reactive 12/08/2019 10:59 AM CDT [facility] Blood BLOOD SPECIMEN / Unknown Lab Venipuncture / Unknown 12/08/2019 7:03 AM CDT 12/08/2019 8:17 AM CDT Asuncion Aparicio MD LAB - CHEMISTRY MIRI GO Performing Organization Address [facility] Co de Phone Number [facility] [address] [place] [phone] * (ABNORMAL) FOLATE (12/08/2019 7:03 AM CDT) Folate 6.8(L) 7.0 - 31.4 ng/mL 12/08/2019 11:02 AM CDT [facility] Blood BLOOD SPECIMEN / Unknown Lab Venipuncture / Unknown 12/08/2019 7:03 AM CDT 12/08/2019 7:48 AM CDT Christiano Pino MD LAB - CHEMISTRY MIRI GO Performing Organization Address [facility] Co de Phone Number [facility] [address] [place] [phone] * (ABNORMAL) IRON + TRANSFERRIN PANEL (12/08/2019 7:03 AM CDT) Iron 15(L) 50 - 170 ug/dL 12/08/2019 8:11 AM CDT [facility] Transferrin 472(H) 180 - 382 mg/dL 12/08/2019 8:11 AM CDT [facility] TIBC Calculated 590(H) 240 - 450 ug/ml 12/08/2019 8:11 AM CDT [facility] Iron Saturation % 3(L) 20 - 50 % 12/08/2019 8:11 AM CDT [facility] Blood BLOOD SPECIMEN / Unknown Lab Venipuncture / Unknown 12/08/2019 7:03 AM CDT 12/08/2019 7:48 AM CDT Pattie Castellon MD LAB - CHEMISTRY ORD ERABLES Performing Organization Address City/[facility]/ZIP Co de Phone Number [facility] [address] [place], [place] [phone] * (ABNORMAL) FERRITIN (12/08/2019 7:03 AM CDT) Ferritin 2(L) 5 - 204 ng/mL 12/08/2019 8:31 AM CDT [facility] Blood BLOOD SPECIMEN / Unknown Lab Venipuncture / Unknown 12/08/2019 7:03 AM CDT 12/08/2019 7:48 AM CDT Pattie Castellon MD LAB - CHEMISTRY ORD ERABLES [facility] [address] [place], [place] [phone] Care Teams [employer]er Relationship Specialty Start Date End Date Alejandro Blevins MD [address] [place] [phone] PCP - General Family Medicine 12/07/19
--- OUTSIDE RECORDS SUMMARY | 2024-08-26 22:50 | XMS_ITS | Encounter Summary ---
Author Organization [facility] Address [address] [place] [address]. [place] [address] [place] [address] Care Team Providers Care Earth Science Professor Name Role Phone Alejandro Blevins MD Primary Care Provider [phone] Encounter Details Date Type Department Care Team (Late st Contact Info) Description 08/04/2020 Hospital Follow-up Call [facility] [address] [place] [address] Chen Trimble RN Social History Tobacco Use Types Packs/Day Years Used Date Smoking Tobacco: Former Smokeless Tobacco: Current Comments Yes Sex and Gender Information Value Date Recorded Sex Assigned at Not on file Legal Sex Female 11:30 PM CORPORATE ACCOUNTING MANAGER Gender Identity Female 11/10/2021 3:09 PM CDT Sexual Orientation Straight 11/10/2021 3: 09 PM CDT COVID-19 Exposure Response Date Recorded In the last month, have you been in contact with someone who was confirmed or suspected to have Coronavirus / COVID-19? No / Unsure 08/07/2020 8:30 AM CORPORATE ACCOUNTING MANAGER documented as of this encounter Functional Status * RETIRED Are you deaf or do you have serious difficulty hearing Answer Date of Assessment Author Status No 07/30/2020 10:48 PM CORPORATE ACCOUNTING MANAGER Acti ve * RETIRED Are you blind or do you have serious difficulty seeing, even when wearing glasses? Answer Date of Assessment Author Status No 07/30/2020 10:46 PM CORPORATE ACCOUNTING MANAGER Acti ve * Do you have serious difficulty walking or climbing stairs? Answer Date of Assessment Author Status No 07/30/2020 10:46 PM CORPORATE ACCOUNTING MANAGER Nella Le RN Active * Do [...] st Contact Info) Description 09/25/2024 11:30 AM CORPORATE ACCOUNTING MANAGER Appointment [facility] [address] [place] [address] Roberta Alex MD [address] [place] [phone] 09/25/2024 11:40 AM CORPORATE ACCOUNTING MANAGER Office Visit [facility] [address] [place] [address] Roberta Alex MD [address] [place] [phone] documented as of this encounter Visit Diagnoses Not on filedocumented in this encounter Additional Health Concerns Infection Onset Date Last Indicated Resolved Time MRSA 06/05/2021 06/05/2021 documented as of this encounter Care Teams Earth Science Professor Relationship Specialty Start Date End Date Alejandro Blevins MD PCP - General FAMILY PRACTICE 12/10/19 documented as of this encounter
--- OUTSIDE RECORDS SUMMARY | 2024-08-26 22:50 | XMS_ITS | Clinical Summary ---
Author Organization [facility] Address [address] [place] [address] Care Team Providers Care Robotics Systems Engineer Name Role Phone Alejandro Blevins MD Primary Care Provider [phone] [facility],non-owned Affiliates and Associated Physician Practices is amultiple site organization consisting of ambulatory clinics and hospital sitesin [place], [place], [place] and [place]. This disclosure is being madepursuant to the Care Everywhere program and may not contain all information available regarding this patient. Last updated 18.[facility] Allergies Active Allergy Reactions Criticality [...] migh t be different from the original. [employer] form completed. Diapers given. 06/02/2020 [...] Comments Blood Pressure 108/71 08/19/2021 11:05 AM SKI PATROL DIRECTOR Pulse 74 08/19/2021 11:05 AM SKI PATROL DIRECTOR Temperature 36.2 ??C (97.2 ??F) 06/02/2020 8:43 [...] IG LB+HPV APTIMA Routine 08/19/2021 11:34 AM SKI PATROL DIRECTOR High grade squamous intraepithelial lesion (HGSIL), grade 3 WIL, on biopsy of cervix HIV-1 HIV-2 ANTIBODY + HIV P24 AG PANEL STAT 04/17/2020 8:57 PM CDT HEPATITIS C RNA QUANTITATIVE Routine 12/08/2019 7:03 AM CDT Anemia, unspecified type from Last 3 Months or Most Recently Relevant to Health Maintenance Results * PAP IG LB+HPV APTIMA (08/19/2021 11:34 AM SKI PATROL DIRECTOR) Diagnosis Comment 08/22/2021 7:09 AM SKI PATROL DIRECTOR [facility] ([facility]) Comment:NEGATIVE FOR INTRAEP ITHELIAL LESION OR MALIGNANCY. Specimen Adequacy Comment 022 7:09 AM SKI PATROL DIRECTOR [facility] ([facility]) Comment: Satisfactory for evaluation. ??Endocervical and/or squamous metaplastic cells (endocervical component) are present. Performed by Comment 08/22/2021 7:09 AM SKI PATROL DIRECTOR [facility] ([facility]) Comment:Nella Montes, Rental Car Porter (ASCP) Comment . 08/22/2021 7:09 AM SKI PATROL DIRECTOR [facility] ([facility]) Note Comment 08/22/2021 7:09 AM SKI PATROL DIRECTOR [facility] ([facility]) Comment: The Pap smear is a screening test designed to aid in the detection of premalignant and malignant conditions of the uterine cervix. ??It is not a diagnostic procedure and should not be used as the sole means of detecting cervical cancer. ??Both false-positive and false-negative reports do occur. IGL[facility] CPT Code Automation Comment 08/22/2021 7:09 AM SKI PATROL DIRECTOR [facility] ([facility]) Comment: This liquid based ThinPrep(R) pap test was screened with the use of an image guided system. Human papillomavirus Aptima Negative Negative 08/22/2021 7:09 AM [facility] ([facility]) Comment: This nucleic acid amplification test detects fourteen high-risk HPV types (16,18,31,33,35,39,45,51,52,56,58,59,66,68) without differentiation. Pathology/Cytolo gy ENTIRE ENDOCERVIX / Unknown Collection / Unknown 08/19/2021 11:34 AM SKI PATROL DIRECTOR 08/19/2021 12:41 PM SKI PATROL DIRECTOR Narrative [facility] ([facility]) - 08/22/2021 7:09 AM SKI PATROL DIRECTOR Performed at: ??01 - [facility] ??[id number] Senior Counsel: Stephanie Lemus MD, Phone: ??[phone] Performed at: ??02 - [facility] ??[id number] Senior Counsel: Stephanie Lemus MD, Phone: ??[phone] Specimen Comment: No. of containers..01 ThinPrep Vial Adrienne Roth MD LAB - PATHOLOGY/CY TOLOGY ORDERABLES Performing Organization Address [facility] Co de Phone Number [facility] ([facility]) [address] [place] [address] * HIV-1 HIV-2 ANTIBODY + HIV P24 AG PANEL (04/17/2020 8:57 PM CDT) HIV1/2 Ab + P24 Ag Non Reactive Non Reactive 04/17/2020 10:02 PM CDT [facility] Blood BLOOD SPECIMEN / Unknown Venipuncture / Unknown 04/17/2020 8:57 PM CDT 04/17/2020 9:09 PM CDT Narrative [facility] - 04/17/2020 10:02 PM CDT No Laboratory evidence of HIV infection. Mayuri Norton MD LAB - CHEMISTRY MIRI GO Performing Organization Address City/[facility]/ZIP Co de Phone Number [facility] [address] [place] [address] * HEPATITIS C RNA QUANTITATIVE (12/08/2019 7:03 AM CDT) Hepatitis C Virus Quantitation [id number] IU/mL 12/19/2019 6:08 AM CDT [facility] ([facility]) Hepatitis C Virus Log 10 6.217 log10 IU/mL 12/19/2019 6:08 AM CDT [facility] ([facility]) Test Information Comment 12/19/19 20 6:08 AM CDT [facility] ([facility]) Comment:The quantitative ran ge of this assay is 15 IU/mL to 100 million IU/mL. Blood BLOOD SPECIMEN / Unknown Lab Venipuncture / Unknown 12/08/2019 7:03 AM CDT 12/08/2019 7:48 AM CDT Narrative [facility] ([facility]) - 12/19/2019 6:08 AM CDT Performed at: ??01 - [facility] ??[id number] Senior Counsel: Kiran Guerra MD, Phone: ??[phone] Pattie Castellon MD LAB - CHEMISTRY ORD ERABLES [facility] ([facility]) [address] [place] [address] from Last 3 Months or Most Recently Relevant to Health Maintenance Advance Directives * Full Code (Latest Code Status on File) Date Activated Date Inactivated Comments 04/18/2020 5:26 AM 04/23/2020 5:11 PM * Full Code Date Activated Date Inactivated Comments 04/17/2020 9:19 PM 04/18/2020 5:26 AM * Full Code Date Activated Date Inactivated Comments 12/08/2019 2:09 AM 12/09/2019 7:07 PM Care Teams Robotics Systems Engineer Relationship Specialty Start Date End Date Alejandro Belvins MD [address] [place] [phone] PCP - General Family Medicine 12/07/19
--- OUTSIDE RECORDS SUMMARY | 2024-08-26 22:50 | XMS_ITS | Encounter Summary ---
Author Organization [facility] Address [address] [place] [address]. [place] [address] [place] [address] Care Team Providers Care Glass Processing Worker Name Role Phone Alejandro Blevins MD Primary Care Provider [phone] Encounter Details Date Type Department Care Team (Late st Contact Info) Description 10/08/2017 Abstract [facility] CONVERSION [address] [place] [address] , Generic ConversionMD Social History Tobacco Use Types Packs/Day Years Used Date Smoking Tobacco: Never Assessed Comments Unknown Sex and Gender Information Value Date Recorded Sex Assigned at Not on file Legal Sex Female 11:30 PM FEDERAL APPELLATE LAW CLERK Gender Identity Female 11/10/2021 3:09 PM CDT Sexual Orientation Straight 11/10/2021 3: 09 PM CDT documented as of this encounter Plan of Treatment Upcoming Encounters Date Type Department Care Team (Late st Contact Info) Description 09/25/2024 11:30 AM FEDERAL APPELLATE LAW CLERK Appointment [facility] [address] [place] [address] Roberta Alex MD [address] [place] [phone] 09/25/2024 11:40 AM FEDERAL APPELLATE LAW CLERK Office Visit [facility] [place] [address] Roberta Alex MD [address] [place] [phone] documented as of this encounter Visit Diagnoses Not on filedocumented in this encounter Additional Health Concerns Infection Onset Date Last Indicated Resolved Time COVID-19 Rule Out 07/30/2020 07/30/2020 07/30/2020 4:31 PM FEDERAL APPELLATE LAW CLERK MRSA 06/05/2021 06/05/2021 documented as of this encounter Care Teams Glass Processing Worker Relationship Specialty Start Date End Date Alejandro Blevins MD PCP - General FAMILY PRACTICE 12/10/19 documented as of this encounter
--- OUTSIDE RECORDS SUMMARY | 2024-08-26 22:50 | XMS_ITS | Clinical Summary ---
Author Organization [facility] Address [address] [place] [address]. [place] [address] [place] [address] Care Team Providers Care Auto Tune Up Mechanic Name Role Phone Alejandro Blevins MD Primary Care Provider [phone] Allergies Active Allergy Reactions Criticality Noted Date [...] omeprazole (PRILOSEC) 20 MG capsuleIndicati ons:Acute ITP ([facility] HHS/HCC) TAKE 1 CAPSULE BY MOUTH [...] ITP (idiopathic thrombocytopenia) (CMS/H CC [facility]) 05/13/2020 Iron deficiency anemia secon brooke to inadequate dietary iron intake 12/19/2019 Other dietary vitamin B12 deficiency anemia 11/23 Hepatitis C virus infection without hepatic coma 12/08/2019 Polysubstance abuse ([facility] HHS/[facility]) 12/08/2019 Thrombocytopenia affecting ([facility]) 12/08/2019 Transaminitis 12/08/2019 Twin ([facility]) 12/08/2019 Anemia 12/07/2019 Encounters Date Type Department Care Team Description 06/19/2024 10:40 AM PRESCHOOL ASSISTANT PRINCIPAL Office Visit [facility] [place] [address] Roberta Alex MD Follow Up (Chronic ITP (idiopathic thrombocytopenia) ([facility])); Lab Results 06/19/2024 10:20 AM PRESCHOOL ASSISTANT PRINCIPAL - 06/19/2024 11:59 PM PRESCHOOL ASSISTANT PRINCIPAL Hospital Encounter [facility] [place] [address] [address] Roberta Alex MD Discharge Disposition: Home or Self Care (Routine Discharge) 06/19/2024 Orders Only [facility] [place] [address] [address] Roberta Alex MD 06/19/2024 Travel from Last [...] on file Legal Sex Female 11:30 PM PRESCHOOL ASSISTANT PRINCIPAL Gender Identity Female 11/10/2021 3:09 PM CDT Sexual Orientation Straight 11/10/2021 3: 09 PM CDT Last Filed Vital Signs Vital Sign Reading Time Taken Comments Blood Pressure 122/75 06/19/2024 10:47 AM PRESCHOOL ASSISTANT PRINCIPAL Pulse 73 06/19/2024 10:47 AM PRESCHOOL ASSISTANT PRINCIPAL Temperature 36.1 ??C (97 ??F) 06/19/2024 10: 47 AM PRESCHOOL ASSISTANT PRINCIPAL Respiratory Rate 20 06/19/2024 10:4 7 AM PRESCHOOL ASSISTANT PRINCIPAL Oxygen Saturation 99% 06/19/2024 10: 47 AM PRESCHOOL ASSISTANT PRINCIPAL Inhaled Oxygen Concentration - - Weight 77.1 kg (169 lb 15.6 oz) 024 10:47 AM PRESCHOOL ASSISTANT PRINCIPAL Height 160 cm (5' 3 ) 06/19/2024 10:47 AM PRESCHOOL ASSISTANT PRINCIPAL Body Mass Index 30.11 06/19/2024 10:47 AM PRESCHOOL ASSISTANT PRINCIPAL Plan of Treatment Upcoming Encounters Date Type Department Care Team (Late st Contact Info) Description 09/25/2024 11:30 AM PRESCHOOL ASSISTANT PRINCIPAL Appointment [facility] [place] [facility] [address] [place] [address] Roberta Alex MD [address] [place] [phone] 09/25/2024 11:40 AM PRESCHOOL ASSISTANT PRINCIPAL Office Visit [facility] [address] [place] [address] Roberta Alex MD [address] [place] [phone] Health Maintenance Due Date Last Done Comments [...] CBC W/DIFF AUTOMATED Routine 06/19/2024 10:40 AM PRESCHOOL ASSISTANT PRINCIPAL Thrombocytopenia (CMS/HCC) from Last 3 Months Results * (ABNORMAL) CBC W/DIFF AUTOMATED (06/19/2024 10:40 AM PRESCHOOL ASSISTANT PRINCIPAL) WBC 8.99 4.00 - 10.80 x10'3/uL 06/19/2024 10:55 AM PRESCHOOL ASSISTANT PRINCIPAL [facility] RBC 4.87 4.10 - 5.40 x10'6/uL 06/19/2024 10:55 AM PRESCHOOL ASSISTANT PRINCIPAL [facility] HGB 14.1 12.0 - 16.0 G/DL 06/19/2024 10:55 AM PRESCHOOL ASSISTANT PRINCIPAL [facility] HCT 43.5 36.0 - 47.0 % 06/19/2024 10:55 AM PRESCHOOL ASSISTANT PRINCIPAL [facility] MCV 89.3 78.0 - 100.0 FL 06/19/2024 10:55 AM [facility] MCH 29.0 27.0 - 31.0 PG 06/19/2024 10:55 AM [facility] MCHC 32.4(L) 33.0 - 36.0 G/DL 06/19/2024 10:55 AM [facility] RDW 13.9 11.5 - 14.5 % 06/19/2024 10:55 AM [facility] PLT 197 150 - 350 x10'3/uL 06/19/2024 10:55 AM [facility] MPV 13.0(H) 7.4 - 10.4 FL 06/19/2024 10:55 AM [facility] CBC COMMENT NORMAL REFERENCE RANGE NOT ESTABLISHED FOR THE PROPORTIONAL LEUKOCYTE DIFFERENTIAL. 06/19/2024 10:55 AM [facility] NEUTROPHILS % 60.3 % 06/19/2024 10:55 AM [facility] LYMPHOCYTES % 26.4 % 06/19/2024 10:55 AM [facility] MONOCYTES % 5.9 % 06/19/2024 10:55 AM [facility] EOSINOPHILS % 6.3 % 06/19/2024 10:55 AM [facility] BASOPHILS % 0.9 % 06/19/2024 10:55 AM [facility] IMMATURE GRANS % 0.2 % 06/19/20 10:55 AM [facility] NRBC % 0.0 % 06/19/2024 10:55 AM [facility] ABS. NEUTROPHILS 5.42 1.60 - 8.30 x10'3/uL 06/19/2024 10:55 AM [facility] ABS. LYMPHOCYTES 2.37 0.80 - 4.70 x10'3/uL 06/19/2024 10:55 AM [facility] ABS. MONOCYTES 0.53 0.00 - 1.50 x10'3/uL 06/19/2024 10:55 AM [facility] ABS. EOSINOPHILS 0.57(H) 0.00 - 0.40 x10'3/uL 06/19/2024 10:55 AM PRESCHOOL ASSISTANT PRINCIPAL [facility] ABS. BASOPHILS 0.08 0.00 - 0.20 x10'3/uL 06/19/2024 10:55 AM PRESCHOOL ASSISTANT PRINCIPAL [facility] ABS. IMMATURE GRANULOCYTES 0.02 0.00 - 0.03 x10'3/uL 06/19/2024 10:55 AM PRESCHOOL ASSISTANT PRINCIPAL [facility] ABS. NUCLEATED RBC'S 0.00 0.00 - 0.01 x10'3/uL 06/19/2024 10:55 AM PRESCHOOL ASSISTANT PRINCIPAL [facility] 06/19/2024 10:4 0 AM PRESCHOOL ASSISTANT PRINCIPAL Roberta Alex MD LABORATORY Final Result [facility] [address] [place] [id number], from Last 3 Months Additional Health Concerns Infection Onset Date Last Indicated MRSA 06/05/2021 06/05/[address] [place] [address] Advance Directives * Full Code (Latest Code Status on File) Date Activated Date Inactivated Comments 07/30/2020 3:42 PM 07/31/2020 6:41 PM Care Teams Auto Tune Up Mechanic Relationship Specialty Start Date End Date Alejandro Blevins MD PCP - General FAMILY PRACTICE 12/10/19
--- OUTSIDE RECORDS SUMMARY | 2024-08-26 22:50 | XMS_ITS | Encounter Summary ---
Author Organization [facility] Address [address] [place] [address]. [place] [address] [place] [address] Care Team Providers Care Outside Physical Damage Appraiser Name Role Phone Alejandro Blevins MD Primary Care Provider [phone] Encounter Details Date Type Department Care Team (Late st Contact Info) Description 11/30/2022 [employer] Message Enc [address] [place] [address] Roberta Alex MD [address] [place] [phone] Paperwork Social History Tobacco Use Types Packs/Day Years Used Date Smoking Tobacco: Every Day Cigarettes Smokeless Tobacco: Never Alcohol Use Standard Drinks/Week Comments Not Currently 0 (1 standard drink = 0.6 oz pur e alcohol) Comments No Sex and Gender Information Value Date Recorded Sex Assigned at Not on file Legal Sex Female 11:30 PM CRT Gender Identity Female 11/10/2021 3:09 PM CDT [...] Assessment Author Status No 07/30/2020 10:48 PM CRT Acti ve * RETIRED Are you blind or do you have serious difficulty seeing, even when wearing glasses? Answer Date of Assessment Author Status No 07/30/2020 10:46 PM CRT Acti ve * Do you have serious [...] st Contact Info) Description 09/25/2024 11:30 AM CRT Appointment [facility] [address] [place] [address] Roberta Alex MD [address] [place] [phone] 09/25/2024 11:40 AM CRT Office Visit [facility] [place] [address] [address] Roberta Alex MD [address] [place] [phone] documented as of this encounter Visit Diagnoses Not on filedocumented in this encounter Additional Health Concerns Infection Onset Date Last Indicated Resolved Time MRSA 06/05/2021 06/05/2021 documented as of this encounter Care Teams Outside Physical Damage Appraiser Relationship Specialty Start Date End Date Alejandro Blevins MD PCP - General FAMILY PRACTICE 12/10/19 documented as of this encounter
--- OUTSIDE RECORDS SUMMARY | 2024-08-26 22:50 | XMS_ITS | Encounter Summary ---
Author Organization [facility] Address [address] [place] [address]. [place] [address] [place] [address] Care Team Providers Care Field Specialist Name Role Phone Alejandro Blevins MD Primary Care Provider Encounter Details Date Type Department Care Team (Late st Contact Info) Description 11/29/2022 [employer] Message Enc [address] [place] [address] Roberta Alex MD [address] [place] [phone] Note for work Social History Tobacco Use Types Packs/Day Years Used Date Smoking Tobacco: Every Day Cigarettes Smokeless Tobacco: Never Alcohol Use Standard Drinks/Week Comments Not Currently 0 (1 standard drink = 0.6 oz pur e alcohol) Comments No Sex and Gender Information Value Date Recorded Sex Assigned at Not on file Legal Sex Female 11:30 PM CARAMEL CANDY MAKER Gender Identity Female 11/10/2021 3:09 PM [...] Assessment Author Status No 07/30/2020 10:48 PM CARAMEL CANDY MAKER Acti ve * RETIRED Are you blind or do you have serious difficulty seeing, even when wearing glasses? Answer Date of Assessment Author Status No 07/30/2020 10:46 PM CARAMEL CANDY MAKER Acti ve * Do you have [...] st Contact Info) Description 09/25/2024 11:30 AM CARAMEL CANDY MAKER Appointment [facility] [address] [place] [address] Roberta Alex MD [address] [place] [phone] 09/25/2024 11:40 AM CARAMEL CANDY MAKER Office Visit [facility] [place] [address] [address] Roberta Alex MD [address] [place] [phone] documented as of this encounter Visit Diagnoses Not on filedocumented in this encounter Additional Health Concerns Infection Onset Date Last Indicated Resolved Time MRSA 06/05/2021 06/05/2021 documented as of this encounter Care Teams Field Specialist Relationship Specialty Start Date End Date Alejandro Blevins MD PCP - General FAMILY PRACTICE 12/10/19 documented as of this encounter
--- OUTSIDE RECORDS SUMMARY | 2024-08-26 22:50 | XMS_ITS ---
Author Organization Unknown Address [address] [place] [phone] Phone Care Team Providers Care Stone Sawyer Name Role Phone ZULLY Anaya Attending Unavailable [...] Cole Rae M.D. MZ: MZ Report ID: [id number] Reading Location: [place] [address] Social History Type Status Start Date End Date Code Code Syst em Smoking History Never smoker (Never Smoked) [id number] SNOMED CT Sex Female Hospital Discharge Instructions [...]
--- OUTSIDE RECORDS SUMMARY | 2024-08-26 22:50 | XMS_ITS | Referral Summary ---
Author Organization [facility] Address [address] [place] [address] Care Team Providers Care Jewelry Inspector Name Role Phone Alejandro Blevins MD Primary Care Provider [phone] Source Comments [facility],non-owned Affiliates and Associated Physician Practices is amultiple site organization consisting of ambulatory clinics and hospital sitesin [place], [place], [place] and [place]. This disclosure is being madepursuant to the Care Everywhere program and may not contain all information available regarding this patient. Last updated 18.[facility] Allergies Active Allergy Reactions Criticality Noted Date [...] migh t be different from the original. [employer] form completed. Diapers given. 06/02/2020 [...] Comments Blood Pressure 108/71 08/19/2021 11:05 AM PASTEURIZER HELPER Pulse 74 08/19/2021 11:05 AM PASTEURIZER HELPER Temperature 36.2 ??C (97.2 ??F) 06/02/2020 8:43 [...] IG LB+HPV APTIMA Routine 08/19/2021 11:34 AM PASTEURIZER HELPER High grade squamous intraepithelial lesion (HGSIL), grade 3 WIL, on biopsy of cervix HIV-1 HIV-2 ANTIBODY + HIV P24 AG PANEL STAT 04/17/2020 8:57 PM CDT HEPATITIS C RNA QUANTITATIVE Routine 12/08/2019 7:03 AM CDT Anemia, unspecified type from Last 3 Months or Most Recently Relevant to Health Maintenance Results * PAP IG LB+HPV APTIMA (08/19/2021 11:34 AM PASTEURIZER HELPER) Diagnosis Comment 08/22/2021 7:09 AM PASTEURIZER HELPER [facility] ([facility]) Comment:NEGATIVE FOR INTRAEP ITHELIAL LESION OR MALIGNANCY. Specimen Adequacy Comment 022 7:09 AM PASTEURIZER HELPER [facility] ([facility]) Comment: Satisfactory for evaluation. ??Endocervical and/or squamous metaplastic cells (endocervical component) are present. Performed by Comment 08/22/2021 7:09 AM PASTEURIZER HELPER [facility] ([facility]) Comment:Nella Montes, Poker In (ASCP) Comment . 08/22/2021 7:09 AM PASTEURIZER HELPER [facility] ([facility]) Note Comment 08/22/2021 7:09 AM PASTEURIZER HELPER [facility] ([facility]) Comment: The Pap smear is a screening test designed to aid in the detection of premalignant and malignant conditions of the uterine cervix. ??It is not a diagnostic procedure and should not be used as the sole means of detecting cervical cancer. ??Both false-positive and false-negative reports do occur. IGL[facility] CPT Code Automation Comment 08/22/2021 7:09 AM PASTEURIZER HELPER [facility] ([facility]) Comment: This liquid based ThinPrep(R) pap test was screened with the use of an image guided system. Human papillomavirus Aptima Negative Negative 08/22/2021 7:09 AM PASTEURIZER HELPER [facility] ([facility]) Comment: This nucleic acid amplification test detects fourteen high-risk HPV types (16,18,31,33,35,39,45,51,52,56,58,59,66,68) without differentiation. Pathology/Cytolo gy ENTIRE ENDOCERVIX / Unknown Collection / Unknown 08/19/2021 11:34 AM PASTEURIZER HELPER 08/19/2021 12:41 PM PASTEURIZER HELPER Narrative [facility] ([facility]) - 08/22/2021 7:09 AM PASTEURIZER HELPER Performed at: ??01 - [facility] [place] ??[id number] Mental Health Unit Lead Psychologist: Stephanie Lemus MD, Phone: ??[phone] Performed at: ??02 - [facility] [place], [place] ??[id number] Mental Health Unit Lead Psychologist: Stephanie Lemus MD, Phone: ??[phone] Specimen Comment: No. of containers..01 ThinPrep Vial Adrienne Roth MD LAB - PATHOLOGY/CY TOLOGY ORDERABLES [facility] ([facility]) [address] [place] [address] * HIV-1 HIV-2 ANTIBODY + HIV P24 AG PANEL (04/17/2020 8:57 PM CDT) [facility] HIV1/2 Ab + P24 Ag Non Reactive Non Reactive 04/17/2020 10:02 PM CDT [facility] Blood BLOOD SPECIMEN / Unknown Venipuncture / Unknown 04/17/2020 8:57 PM CDT 04/17/2020 9:09 PM CDT Narrative [facility] - 04/17/2020 10:02 PM CDT No Laboratory evidence of HIV infection. Mayuri Norton MD LAB - CHEMISTRY MIRI GO [facility] [address] [place] [address] * HEPATITIS C RNA QUANTITATIVE (12/08/2019 7:03 AM CDT) [facility] Hepatitis C Virus Quantitation [id number] IU/mL 12/19/2019 6:08 AM CDT [facility] ([facility]) Hepatitis C Virus Log 10 6.217 log10 IU/mL 12/19/2019 6:08 AM CDT [facility] ([facility]) Test Information Comment 12/19/19 6:08 AM CDT [facility] ([facility]) Comment:The quantitative ran ge of this assay is 15 IU/mL to 100 million IU/mL. Blood BLOOD SPECIMEN / Unknown Lab Venipuncture / Unknown 12/08/2019 7:03 AM CDT 12/08/2019 7:48 AM CDT Narrative [facility] ([facility]) - 12/19/2019 6:08 AM CDT Performed at: ??01 - [facility] [address] ??[id number] Mental Health Unit Lead Psychologist: Kiran Guerra MD, Phone: ??[phone] Pattie Castellon MD LAB - CHEMISTRY ORD ERABLES [facility] ([facility]) [address] [place] [address] from Last 3 Months or Most Recently Relevant to Health Maintenance Advance Directives * Full Code (Latest Code Status on File) Date Activated Date Inactivated Comments 04/18/2020 5:26 AM 04/23/2020 5:11 PM * Full Code Date Activated Date Inactivated Comments 04/17/2020 9:19 PM 04/18/2020 5:26 AM * Full Code Date Activated Date Inactivated Comments 12/08/2019 2:09 AM 12/09/2019 7:07 PM Care Teams Jewelry Inspector Relationship Specialty Start Date End Date Alejandro Blevins MD [address] [place] [address] PCP - General Family Medicine 12/07/19
[2024-08-26 23:10] LABS: SARS-CoV-2 RNA PCR Negative (Negative)
[2024-08-26 23:18] LABS: Influenza A QL RT-PCR Positive (Negative); Influenza B QL RT-PCR Negative (Negative); RSV RNA, RT-PCR Negative (Negative)
--- NOTE | 2024-08-26 23:24 | ED.HA ---
HPI - Headache General Chief Complaint: Headache Stated Complaint: migraine Time Seen by Provider: 08/26/24 22:25 Source: patient Mode of arrival: ambulatory Limitations: no limitations History of Present Illness HPI Narrative: Patient is a 34-year-old female with a migraine history here with a migraine and not feeling well for the past 2 days. She is out of her migraine medicine at this time. No concerns for . MD elicited complaint: migraine Pertinent past history: migraines Onset (ago): day(s) (2) Onset description: gradually Location: generalized Severity: similar to previous episodes Pain scale (0-10): 8 Quality & Timing: throbbing, sharp and constant Exacerbating factors: exertion, movement of head/neck, sitting/standing, light and noise Relieving factors: nothing Context: close contacts with similar symptoms ( Other household members have influenza a) Associated symptoms: photophobia and malaise Treatments prior to arrival: acetaminophen, ibuprofen and migraine medication Related Data Home Medications ?Medication ?Instructions ?Recorded ?Confirmed ?Last Taken ?Type buprenorphine 8 mg-naloxone 2 mg 1 tablet sublingual BID 11/28/22 07/07/24 Unknown History sublingual tablet clonazepam 1 mg tablet 1 mg PO Q12H anxiety 07/07/24 07/07/24 Unknown History hydroxyzine pamoate 100 mg capsule 100 mg PO Q8H 07/07/24 07/07/24 Unknown History Allergies Allergy/AdvReac Type Severity Reaction Status Date / Time bee venom protein (honey Allergy Swelling Verified 08/26/24 22:31 bee) (bees) shellfish derived Allergy Unknown Verified 08/26/24 22:31 Review of Systems Review of Systems: All systems reviewed & are unremarkable except as noted in HPI and below Constitutional: Constitutional: Reports no additional constitutional complaints Eyes: Eyes: Reports no additional eye complaints ENT: Reports system reviewed and no additional complaints, except as documented Cardiovascular: Cardiovascular: Reports no additional cardiovascular complaints Respiratory: Respiratory: Reports no additional respiratory complaints Gastrointestinal: Gastrointestinal: Reports no additional gastrointestinal complaints Genitourinary: Genitourinary: Reports no additional female genitourinary complaints Musculoskeletal: Musculoskeletal: Reports no additional musculoskeletal complaints Integumentary/Breasts: Skin/Breast: Reports system reviewed and no additional complaints, except as docu Neurologic: Reports system reviewed and no additional complaints, except as documented Psychiatric: Psychiatric: Reports no additional psychiatric complaints Endocrine: Endocrine: Reports no additional endocrine complaints Hematologic/Lymphatic: Hematologic/Lymphatic: Reports no additional hematologic/lymphatic complaints Allergic/Immunologic: Allergic/Immunologic: Reports no additional allergic/immunologic complaints [facility] Past Medical History Medical History History of kidney stones Chronic ITP (idiopathic thrombocytopenia) History of Migraine Surgical History Surgical History History of Social History Social History Smoking status: Never smoker Alcohol intake: never Substance use: current Substance use type: amphetamines Gender identity (if verbalized by the patient): Female Exam Const: General: healthy appearing Nutritional Appearance: well nourished Orientation/consciousness: patient oriented x3 HENMT: Head: normal to inspection Ears: external ears normal Face/Nose/Sinus: Normal external nose present Eyes: Conjunctivae: conjunctivae normal Pupils: Equal, round and reactive pupils present EOM: EOMs intact bilaterally Neck: Neck: normal visual inspection Chest: Chest palpation & inspection: normal inspection of the chest Resp: Effort & Inspection: normal respiratory effort and not labored Auscultation: clear to auscultation bilaterally and no crackles Cardio: Rate: regular rate Rhythm: regular rhythm Heart sounds: no murmurs GI: Inspection: non-distended GI Palp: Yes Soft to palpation and No Tenderness to palpation present (GI) Auscultation: normal bowel sounds : General: Yes bladder normal to palpation Back/Spine/Pelvis: Back: no CVA tenderness Skin: General skin exam: normal color Rashes: no rashes Wounds: no wounds Neuro: General: patient oriented x3, moves all extremities, no meningeal signs, no focal motor deficits and CN's II-XI intact bilaterally Cranial nerves: Yes Nystagmus not present Speech: normal speech Gait exam (Neuro): Normal gait present Extrem: General: normal to inspection Psych: Mental Status: mental status grossly normal Affect: normal affect Attitude: cooperative Course Vital Signs Vital signs: Vital Signs Temperature 36.4 C L 08/27/24 00:25 Pulse Rate 54 L 08/27/24 00:25 Respiratory Rate 18 08/27/24 00:25 Blood Pressure 107/65 08/27/24 00:25 Pulse Oximetry 98 08/27/24 00:25 Oxygen Delivery Room Air 08/27/24 00:25 Temperature 36.4 C L 08/27/24 00:25 Pulse Rate 54 L 08/27/24 00:25 Respiratory Rate 18 08/27/24 00:25 Blood Pressure 107/65 08/27/24 00:25 Pulse Oximetry 98 08/27/24 00:25 Oxygen Delivery Room Air 08/27/24 00:25 MDM - Headache MDM Narrative Medical decision making narrative: patient is a 34-year-old female with a typical migraine and not feeling well. We will do a COVID panel at this time as well as treat the migraine. Patient was given a narcotic before realizing that she was on Suboxone. She said she stopped the Suboxone 2 days ago with the illness. We assured that she had a ride home with the narcotic. If the patient proceeds to the emergency room in the future and asked for narcotics, I would be wary of the situation especially now that she has stopped her Suboxone. Lab Data Attestation: I reviewed the patient's lab results. Labs: Lab Results 08/26/24 Range/Units 22:26 Influenza A (RT-PCR) Positive A (Negative) Influenza B (RT-PCR) Negative (Negative) RSV (RT-PCR) Negative (Negative) SARS-CoV-2 RNA (RT-PCR) Negative (Negative) Discharge Plan Discharge Clinical Impression: Influenza A Migraine Qualifiers: Migraine type: unspecified Status migrainosus presence: without status migrainosus Intractability: not intractable Qualified Code(s): G43.909 - Migraine, unspecified, not intractable, without status migrainosus Patient Disposition: Home, Self-Care Condition: Stable Instructions: Migraine Headache (ED), Influenza (DC) Patient Language: Turkmen Prescriptions: No Action buprenorphine-naloxone 8-2 mg tablet, sublingual 1 tablet SUBLINGUAL BID clonazepam 1 mg tablet 1 mg PO Q12H hydroxyzine pamoate 100 mg capsule 100 mg PO Q8H azithromycin [Zithromax] 500 mg tablet 500 mg PO DAILY 3 Days Qty: 3 0RF Follow-up/Referrals: Alejandro Blevins MD [Primary Care Provider] - Stand Alone Forms: Work/School Release IP Time of Disposition: 00:36
[2024-08-27] MEDS: oxyCODONE/ACETAMINOPHEN (*CRX) 5-325 MG TABLET 1 TABLET PO (00:20)
[2024-08-27 00:25] VITALS: BP 107/65; PULSE 54; RESP 18; TEMP 36.4; O2SAT 98
[2024-08-27 01:02] VITALS: BP 120/71; PULSE 87; RESP 18; TEMP 36.7; O2SAT 99
== END 2024-08-27 01:02 | disposition home or self-care (01) ==
PROVIDERS: Emergency Provider Emergency Medicine; PCP Family Medicine
DX: J10.1 Influenza due to other identified influenza virus with other respiratory manifestations (principal); G43.909 Migraine, unspecified, not intractable, without status migrainosus; Z20.822 Contact with and (suspected) exposure to COVID-19
CPT/HCPCS: 87637; 96361; 96374; 96375; 99284; A9270; J1200; J1885; J2765; J7030

== ENCOUNTER 2024-10-10 23:12 | Emergency (ER) | payer MEDICAID, SELFPAY ==
--- NOTE | ~2024-10-10 | CT_ITS ---
History: Headache PROCEDURE: CT head without contrast. COMPARISON: 11/28/2022 TECHNIQUE: Axial imaging of the head performed from the skull base to the vertex without IV contrast. Sagittal a nd coronal reformations obtained. DLP: 605 mGy-cm FINDINGS: The ventricles are normal in size, shape and position. There is no mass, mass effect or midline shift. There is no abnormal extra-axial fluid collection or intracranial hemorrhage. Mucoperiosteal thickening within the bilateral sphenoid sinuses, an interval change from 11/28/2022. Re maining paranasal sinuses are otherwise clear. The mastoid air cells are well aerated. No acute displaced fractures within the overlying cranium. Impression: No acute intracranial hemorrhage or suspicious mass effect. Inflammatory sinus disease Reviewed, dictated and finalized at location A. Impression: No acute intracranial hemorrhage or suspicious mass effect. Inflammatory sinus disease
[2024-10-10 23:15] VITALS: BP 123/66; PULSE 95; RESP 18; TEMP 36.2; O2SAT 98
--- NOTE | 2024-10-10 23:19 | ED.HA ---
HPI - Headache General Chief Complaint: Headache Stated Complaint: migraine Time Seen by Provider: 10/10/24 23:19 Source: patient Mode of arrival: ambulatory History of Present Illness HPI Narrative: 24-year-old female a history of migraine presents to the ED with a 2 day history of -- headache which is predominantly retro-orbital and in the temples. This is associated with nausea with multiple episodes of vomiting. The patient has photophobia and phonophobia. This is similar to her usual migraines. Her migraines started yesterday and has gradually escalated. No fever or chills. -- The patient had a fall on 10/07/2024 and hit the back of her head. No LOC at the time of injury. patient took sumatriptan for a headache but vomited it out. MD elicited complaint: headache and migraine Pertinent past history: recent trauma Onset (ago): day(s) ( Two days) Onset description: gradually Location: retro-orbital Severity: severe Quality & Timing: throbbing Exacerbating factors: none Relieving factors: nothing Context: occurred at rest Associated symptoms: nausea, vomiting, photophobia and sensitivity to sound Related Data Home Medications ?Medication ?Instructions ?Recorded ?Confirmed ?Last Taken ?Type buprenorphine 8 mg-naloxone 2 mg 1 tablet sublingual BID 11/28/22 07/07/24 Unknown History sublingual tablet clonazepam 1 mg tablet 1 mg PO Q12H anxiety 07/07/24 07/07/24 Unknown History hydroxyzine pamoate 100 mg capsule 100 mg PO Q8H 07/07/24 07/07/24 Unknown History Allergies Allergy/AdvReac Type Severity Reaction Status Date / Time bee venom protein (honey Allergy Swelling Verified 10/10/24 23:51 bee) (bees) shellfish derived Allergy Unknown Verified 10/10/24 23:51 Review of Systems Review of Systems: All systems reviewed & are unremarkable except as noted in HPI and below Constitutional: Constitutional: Reports as per HPI and Reports no additional constitutional complaints Eyes: Eyes: Reports as per HPI, Reports no additional eye complaints and Reports photophobia ENT: Reports system reviewed and no additional complaints, except as documented and Reports as per HPI Comments: Phonophobia Cardiovascular: Cardiovascular: Reports as per HPI and Reports no additional cardiovascular complaints Respiratory: Respiratory: Reports as per HPI and Reports no additional respiratory complaints Gastrointestinal: Gastrointestinal: Reports as per HPI and Reports no additional gastrointestinal complaints Genitourinary: Genitourinary: Reports no additional female genitourinary complaints Musculoskeletal: Musculoskeletal: Reports no additional musculoskeletal complaints and Reports as per HPI Integumentary/Breasts: Skin/Breast: Reports system reviewed and no additional complaints, except as docu and Reports as per HPI Neurologic: Reports system reviewed and no additional complaints, except as documented, Reports as per HPI and Reports headache(s) Psychiatric: Psychiatric: Reports no additional psychiatric complaints and Reports as per HPI Endocrine: Endocrine: Reports no additional endocrine complaints and Reports as per HPI Hematologic/Lymphatic: Hematologic/Lymphatic: Reports no additional hematologic/lymphatic complaints and Reports as per HPI Allergic/Immunologic: Allergic/Immunologic: Reports no additional allergic/immunologic complaints and Reports as per HPI [facility] Past Medical History Medical History History of kidney stones Chronic ITP (idiopathic thrombocytopenia) History of Migraine Surgical History Surgical History History of Social History Social History Smoking status: Never smoker Alcohol intake: never Substance use: current Substance use type: amphetamines Gender identity (if verbalized by the patient): Female Exam Narrative: vitals are stable. Oxygen saturation 98% on room air. Const: General: ill appearing Orientation/consciousness: patient oriented x3 Limitations: no limitations HENMT: Head: normal to inspection Ears: external ears normal Face/Nose/Sinus: Normal external nose present Face and sinus: normal facial exam Mouth: Yes Normal oral and palatal mucosa present Throat: posterior oropharynx normal Eyes: Conjunctivae: conjunctivae normal Pupils: Equal, round and reactive pupils present EOM: EOMs intact bilaterally Direct Ophthalmoscopy: photophobia Neck: Neck: normal visual inspection, no lymphadenopathy and no meningeal signs Chest: Chest palpation & inspection: normal inspection of the chest Resp: Effort & Inspection: normal respiratory effort Auscultation: clear to auscultation bilaterally Cardio: Rate: regular rate Rhythm: regular rhythm GI: GI Palp: Yes Soft to palpation Auscultation: normal bowel sounds Other: No tenderness/ rigidity /rebound. : General: Yes no CVA tenderness Back/Spine/Pelvis: Back: no CVA tenderness Skin: General skin exam: normal color Rashes: no rashes Wounds: no wounds Neuro: General: patient oriented x3, moves all extremities, no meningeal signs, no focal motor deficits and CN's II-XI intact bilaterally Cranial nerves: Yes Nystagmus not present Speech: normal speech Gait exam (Neuro): Normal gait present Extrem: General: normal to inspection and no clubbing, cyanosis or edema Psych: Mental Status: mental status grossly normal Affect: normal affect Attitude: cooperative Course Course Emergency Course: Migraine headache accidental fall with head injury on 10/07/2024-- CT of the head did not show any acute findings. Vital Signs Vital signs: Vital Signs Temperature 36.2 C L 10/10/24 23:15 Pulse Rate 95 10/10/24 23:15 Respiratory Rate 18 10/10/24 23:15 Blood Pressure 123/66 10/10/24 23:15 Pulse Oximetry 98 10/10/24 23:15 Oxygen Delivery Room Air 10/10/24 23:15 Temperature 36.2 C L 10/10/24 23:15 Pulse Rate 95 10/10/24 23:15 Respiratory Rate 18 10/10/24 23:15 Blood Pressure 123/66 10/10/24 23:15 Pulse Oximetry 98 10/10/24 23:15 Oxygen Delivery Room Air 10/10/24 23:15 MDM - Headache MDM Narrative Medical decision making narrative: Migraine headache Differential Diagnosis Differential diagnosis: Likely tension headache, subarachnoid hemorrhage and postconcussion syndrome Medical Records Attestation: I reviewed the patient's medical records. Discharge Plan Discharge Clinical Impression: Migraine Qualifiers: Migraine type: unspecified Status migrainosus presence: without status migrainosus Intractability: not intractable Qualified Code(s): G43.909 - Migraine, unspecified, not intractable, without status migrainosus Patient Disposition: Home, Self-Care Condition: Stable Instructions: Antibiotic Form, Migraine Headache (ED) Patient Language: [place] Irish Prescriptions: No Action buprenorphine-naloxone 8-2 mg tablet, sublingual 1 tablet SUBLINGUAL BID clonazepam 1 mg tablet 1 mg PO Q12H hydroxyzine pamoate 100 mg capsule 100 mg PO Q8H azithromycin [Zithromax] 500 mg tablet 500 mg PO DAILY 3 Days Qty: 3 0RF Follow-up/Referrals: Alejandro Blevins MD [Primary Care Provider] - Time of Disposition: 00:43
--- OUTSIDE RECORDS SUMMARY | 2024-10-10 23:19 | XMS_ITS | Encounter Summary ---
Author Organization [facility] Address [facility] [place] [address] Care Team Providers Care Multiple Drum Sander Name Role Phone Alejandro Blevins MD Primary Care Provider Encounter Details Date Type Department Care Team (Late st Contact Info) Description 10/08/2017 Abstract [facility] CONVERSION [address] [place] [address] , Generic ConversionMD Social History Tobacco Use Types Packs/Day Years Used Date Smoking Tobacco: Never Assessed Comments Unknown Sex and Gender Information Value Date Recorded Sex Assigned at Not on file Legal Sex Female 11:30 PM SKIP TRACER Gender Identity Female 11/10/2021 3:09 PM CDT Sexual Orientation Straight 11/10/2021 3: 09 PM CDT documented as of this encounter Plan of Treatment Upcoming Encounters Date Type Department Care Team (Late st Contact Info) Description 11/06/2024 1:50 PM CDT Appointment [facility] [place] [address] Roberta Alex MD [address] [place] [phone] 11/06/2024 2:00 PM CDT Office Visit [facility] [place] [address] [place] [address] Roberta Alex MD [address] [place] [phone] documented as of this encounter Visit Diagnoses Not on filedocumented in this encounter Additional Health Concerns Infection Onset Date Last Indicated Resolved Time COVID-19 Rule Out 07/30/2020 07/30/2020 07/30/2020 4:31 PM SKIP TRACER MRSA 06/05/2021 06/05/2021 documented as of this encounter Care Teams Multiple Drum Sander Relationship Specialty Start Date End Date Alejandro Blevins MD PCP - General FAMILY PRACTICE 12/10/19 documented as of this encounter
--- OUTSIDE RECORDS SUMMARY | 2024-10-10 23:19 | XMS_ITS | Clinical Summary ---
Author Organization [facility] Address [address] [place] [address] Care Team Providers Care Theoretical Physics Teacher Name Role Phone Alejandro Blevins MD Primary Care Provider [phone] Allergies Active Allergy Reactions Criticality Noted Date [...] omeprazole (PRILOSEC) 20 MG capsuleIndicati ons:Acute ITP ([facility]/HCC [facility]) TAKE 1 CAPSULE BY MOUTH EVERY DAY [...] 07/30/2020 Chronic ITP (idiopathic thrombocytopenia) (CMS/H CC [facility]) 05/13/2020 Iron deficiency anemia secon brooke to inadequate dietary iron intake 12/19/2019 Other dietary vitamin B12 deficiency anemia 11/23 Hepatitis C virus infection without hepatic coma 12/08/2019 Polysubstance abuse 12/08/2019 Thrombocytopenia affecting ([facility]) 0 12/08/2019 Transaminitis 12/08/2019 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 Anemia 12/07/2019 Family History Medical History Relation Comments No [...] on file Legal Sex Female 11:30 PM BOTTLER Gender Identity Female 11/10/2021 3:09 PM CDT Sexual Orientation Straight 11/10/2021 3: 09 PM CDT Last Filed Vital Signs Vital Sign Reading Time Taken Comments Blood Pressure 122/75 06/19/2024 10:47 AM BOTTLER Pulse 73 06/19/2024 10:47 AM BOTTLER Temperature 36.1 C (97 F) 06/19/2024 10:47 AM BOTTLER Respiratory Rate 20 06/19/2024 10:4 7 AM BOTTLER Oxygen Saturation 99% 06/19/2024 10: 47 AM BOTTLER Inhaled Oxygen Concentration - - Weight 77.1 kg (169 lb 15.6 oz) 024 10:47 AM BOTTLER Height 160 cm (5' 3 ) 06/19/2024 10:47 AM BOTTLER Body Mass Index 30.11 06/19/2024 10:47 AM BOTTLER Plan of Treatment Upcoming Encounters Date Type Department Care Team (Late st Contact Info) Description 11/06/2024 1:50 PM CDT Appointment [facility] [address] [place] [address] Roberta Alex MD [address] [place] [phone] 11/06/2024 2:00 PM CDT Office Visit [facility] [address] [place] [address] Roberta Alex MD [address] [place] [phone] Health Maintenance Due Date Last Done Comments Annual Physical 1991 DTaP, Tdap and Td Vaccines (4 - Tdap) 2007 12/23/1993, 12/27/1989, 04/07/1989, Additional history exists Hepatitis B Vaccines (1 of 3 - 19+ 3-dose series) 2007 Pneumococcal Vaccine: Pediatrics (0 to 5 Years) and At-Risk Patients (6 to 64 Years) (2 of 2 - PPSV23 or PCV20) 09/26/2014 08/01/2014 COVID-19 Vaccine ( season) 2024 Influenza Adult (#1) 2024 Cervical [...] on patient's age to complete this topic Additional Health Concerns Infection Onset Date Last Indicated MRSA 06/05/2021 06/05/2021 [facility] [address] Advance Directives * Full Code (Latest Code Status on File) Date Activated Date Inactivated Comments 07/30/2020 3:42 PM 07/31/2020 6:41 PM Care Teams Theoretical Physics Teacher Relationship Specialty Start Date End Date Alejandro Blevins MD PCP - General FAMILY PRACTICE 12/10/19
--- OUTSIDE RECORDS SUMMARY | 2024-10-10 23:19 | XMS_ITS | Encounter Summary ---
Author Organization [facility] Address [facility] [place] [address] Care Team Providers Care Auto Technician Name Role Phone Alejandro Blevins MD Primary Care Provider [phone] Encounter Details Date Type Department Care Team (Late st Contact Info) Description 08/04/2020 Hospital Follow-up Call [facility] [address] [place] [address] Chen Trimble RN Social History Tobacco Use Types Packs/Day Years Used Date Smoking Tobacco: Former Smokeless Tobacco: Current Comments Yes Sex and Gender Information Value Date Recorded Sex Assigned at Not on file Legal Sex Female 11:30 PM BUILDING MAINTENANCE TECHNICIAN Gender Identity Female 11/10/2021 3:09 PM CDT Sexual Orientation Straight 11/10/2021 3: 09 PM CDT COVID-19 Exposure Response Date Recorded In the last month, have you been in contact with someone who was confirmed or suspected to have Coronavirus / COVID-19? No / Unsure 08/07/2020 8:30 AM BUILDING MAINTENANCE TECHNICIAN documented as of this encounter Functional Status * RETIRED Are you deaf or do you have serious difficulty hearing Answer Date of Assessment Author Status No 07/30/2020 10:48 PM BUILDING MAINTENANCE TECHNICIAN Acti ve * RETIRED Are you blind or do you have serious difficulty seeing, even when wearing glasses? Answer Date of Assessment Author Status No 07/30/2020 10:46 PM BUILDING MAINTENANCE TECHNICIAN Acti ve * Do you have serious difficulty walking or climbing stairs? Answer Date of Assessment Author Status No 07/30/2020 10:46 PM BUILDING MAINTENANCE TECHNICIAN Nella Le RN Active * Do [...] Info) Description 11/06/2024 1:50 PM CDT Appointment [facility] [address] [place] [address] Roberta Alex MD [address] [place] [phone] 11/06/2024 2:00 PM CDT Office Visit [facility] [address] [place] [address] Roberta Alex MD [address] [place] [phone] documented as of this encounter Visit Diagnoses Not on filedocumented in this encounter Additional Health Concerns Infection Onset Date Last Indicated Resolved Time MRSA 06/05/2021 06/05/2021 documented as of this encounter Care Teams Auto Technician Relationship Specialty Start Date End Date Alejandro Blevins MD PCP - General FAMILY PRACTICE 12/10/19 documented as of this encounter
--- OUTSIDE RECORDS SUMMARY | 2024-10-10 23:19 | XMS_ITS | Clinical Summary ---
Author Organization [facility] Address [address] [place] [address] Care Team Providers Care Pipeline Gang Supervisor Name Role Phone Alejandro Blevins MD Primary Care Provider [phone] Source Comments [facility],non-owned Affiliates and Associated Physician Practices is amultiple site organization consisting of ambulatory clinics and hospital sitesin [place], [place], [place] and [place]. This disclosure is being madepursuant to the Care Everywhere program and may not contain all information available regarding this patient. Last updated 18.[facility] Allergies Active Allergy Reactions Criticality [...] migh t be different from the original. [employer] form completed. Diapers given. 06/02/2020 [...] Date Smoking Tobacco: Some Days Cigarettes 0.5 20.2 Started: 07/2004 Smokeless Tobacco: Never Tobacco Cessation:Ready [...] Comments Blood Pressure 108/71 08/19/2021 11:05 AM SURG RN Pulse 74 08/19/2021 11:05 AM SURG RN Temperature 36.2 C (97.2 F) 06/02/2020 8:43 AM SURG RN Respiratory Rate 18 04/23/2020 12:00 AM CDT [...] of 3 - 19+ 3-dose series) 2007 COVID-19 VACCINE (1 - 2023- season) [...] complete this topic MENINGOCOCCAL (Group B) VACCINE SHARED DECISION-MAKING Aged Out No longer eligible based on patient's age to complete this topic MENINGOCOCCAL GROUPS A/C/Y/W VACCINE Aged Out No longer eligible based on patient's age to complete this topic PNEUMOCOCCAL VACCINE Aged Out No long er eligible based on patient's age to complete this topic Procedures Procedure Name Priority Date/Time Associated Diagnosis Comments PAP IG LB+HPV APTIMA Routine 08/19/2021 11:34 AM SURG RN High grade squamous intraepithelial lesion (HGSIL), grade 3 WIL, on biopsy of cervix HIV-1 HIV-2 ANTIBODY + HIV P24 AG PANEL STAT 04/17/2020 8:57 PM CDT HEPATITIS C RNA QUANTITATIVE Routine 12/08/2019 7:03 AM CDT Anemia, unspecified type from Last 3 Months or Most Recently Relevant to Health Maintenance Results * PAP IG LB+HPV APTIMA (08/19/2021 11:34 AM SURG RN) Diagnosis Comment 08/22/2021 7:09 AM SURG RN [facility] ([facility]) Comment:NEGATIVE FOR INTRAEP ITHELIAL LESION OR MALIGNANCY. Specimen Adequacy Comment 022 7:09 AM SURG RN [facility] ([facility]) Comment: Satisfactory for evaluation. Endocervical and/or squamous metaplastic cells (endocervical component) are present. Performed by Comment 08/22/2021 7:09 AM SURG RN [facility] ([facility]) Comment:Nella Montes, Glass Bulb Silverer (ASCP) Comment . 08/22/2021 7:09 AM SURG RN [facility] ([facility]) Note Comment 08/22/2021 7:09 AM SURG RN [facility] ([facility]) Comment: The Pap smear is a screening test designed to aid in the detection of premalignant and malignant conditions of the uterine cervix. It is not a diagnostic procedure and should not be used as the sole means of detecting cervical cancer. Both false-positive and false-negative reports do occur. IGLBP CPT Code Automation Comment 08/22/2021 7:09 AM SURG RN [facility] ([facility]) Comment: This liquid based ThinPrep(R) pap test was screened with the use of an image guided system. Human papillomavirus Aptima Negative Negative 08/22/2021 7:09 AM [facility] Comment: This nucleic acid amplification test detects fourteen high-risk HPV types (16,18,31,33,35,39,45,51,52,56,58,59,66,68) without differentiation. Pathology/Cytolo gy ENTIRE ENDOCERVIX / Unknown Collection / Unknown 08/19/2021 11:34 AM SURG RN 08/19/2021 12:41 PM SURG RN Narrative [facility] - 08/22/2021 7:09 AM SURG RN Performed at: 01 - [address] [id number] Rod And Tube Straightener: Stephanie Lemus MD, Phone: [phone] Performed at: 02 - [address] [id number] Rod And Tube Straightener: Stephanie Lemus MD, Phone: [phone] Specimen Comment: No. of containers..01 ThinPrep Vial Adrienne Roth MD LAB - PATHOLOGY/CY TOLOGY ORDERABLES Performing Organization Address City/[facility] Co de Phone Number [facility]) [address] [place] [address] * HIV-1 HIV-2 ANTIBODY + HIV P24 AG PANEL (04/17/2020 8:57 PM CDT) HIV1/2 Ab + P24 Ag Non Reactive Non Reactive 04/17/2020 10:02 PM CDT [facility] Blood BLOOD SPECIMEN / Unknown Venipuncture / Unknown 04/17/2020 8:57 PM CDT 04/17/2020 9:09 PM CDT Narrative [facility] - 04/17/2020 10:02 PM CDT No Laboratory evidence of HIV infection. Mayuri Norton MD LAB - CHEMISTRY MIRI GO [facility] [address] [place] [address] * HEPATITIS C RNA QUANTITATIVE (12/08/2019 7:03 AM CDT) Hepatitis C Virus Quantitation [id number] IU/mL 12/19/2019 6:08 AM CDT [facility] ([facility]) Hepatitis C Virus Log 10 6.217 log10 IU/mL 12/19/2019 6:08 AM CDT [facility] ([facility]) Test Information Comment 12/19/19 6:08 AM CDT [facility] ([facility]) Comment:The quantitative ran ge of this assay is 15 IU/mL to 100 million IU/mL. Blood BLOOD SPECIMEN / Unknown Lab Venipuncture / Unknown 12/08/2019 7:03 AM CDT 12/08/2019 7:48 AM CDT Narrative [facility] ([facility]) - 12/19/2019 6:08 AM CDT Performed at: [address] [place] [id number] Rod And Tube Straightener: Kirna Guerra MD, Phone: [phone] Pattie Castellon MD LAB - CHEMISTRY ORD ERABLES [facility] ([facility]) [address] [place] [address] from Last 3 Months or Most Recently Relevant to Health Maintenance Advance Directives * Full Code (Latest Code Status on File) Date Activated Date Inactivated Comments 04/18/2020 5:26 AM 04/23/2020 5:11 PM * Full Code Date Activated Date Inactivated Comments 04/17/2020 9:19 PM 04/18/2020 5:26 AM * Full Code Date Activated Date Inactivated Comments 12/08/2019 2:09 AM 12/09/2019 7:07 PM Care Teams Pipeline Gang Supervisor Relationship Specialty Start Date End Date Alejandro Blevins MD [address] [place] [address] PCP - General Family Medicine 12/07/19
--- OUTSIDE RECORDS SUMMARY | 2024-10-10 23:19 | XMS_ITS ---
Author Organization Unknown Address [address] [place] [phone] Phone Care Team Providers Care Loan Associate Name Role Phone ZULLY Anaya Attending Unavailable [...] Cole Rae M.D. MZ: MZ Report ID: [id number] Reading Location: [place] [address] Social History Type Status Start Date End Date Code Code Syst em Smoking History Never smoker (Never Smoked) 709713613 SNOMED CT Sex Female Hospital Discharge Instructions [...]
--- OUTSIDE RECORDS SUMMARY | 2024-10-10 23:19 | XMS_ITS | Encounter Summary ---
Author Organization [facility] Address [address] [place] [address] Care Team Providers Care Correctional Captain Name Role Phone Alejandro Blevins MD Primary Care Provider [phone] Encounter Details Date Type Department Care Team (Late st Contact Info) Description 11/29/2022 Verixt Message Enc [address] [place], [place] [id number] Roberta Alex MD [address] [place] [phone] Note for work Social History Tobacco Use Types Packs/Day Years Used Date Smoking Tobacco: Every Day Cigarettes Smokeless Tobacco: Never Alcohol Use Standard Drinks/Week Comments Not Currently 0 (1 standard drink = 0.6 oz pur e alcohol) Comments No Sex and Gender Information Value Date Recorded Sex Assigned at Not on file Legal Sex Female 11:30 PM SUPPRESSION CREW LEADER Gender Identity Female 11/10/2021 3:09 PM CDT [...] Assessment Author Status No 07/30/2020 10:48 PM SUPPRESSION CREW LEADER Acti ve * RETIRED Are you blind or do you have serious difficulty seeing, even when wearing glasses? Answer Date of Assessment Author Status No 07/30/2020 10:46 PM SUPPRESSION CREW LEADER Acti ve * Do you have serious [...] Info) Description 11/06/2024 1:50 PM CDT Appointment [facility] [place] [address] [place] [address] Roberta Alex MD [address] [place] [phone] 11/06/2024 2:00 PM CDT Office Visit [facility] [place] [address] [address] Roberta Alex MD [address] [place] [phone] documented as of this encounter Visit Diagnoses Not on filedocumented in this encounter Additional Health Concerns Infection Onset Date Last Indicated Resolved Time MRSA 06/05/2021 06/05/2021 documented as of this encounter Care Teams Correctional Captain Relationship Specialty Start Date End Date Alejandro Blevins MD PCP - General FAMILY PRACTICE 12/10/19 documented as of this encounter
--- OUTSIDE RECORDS SUMMARY | 2024-10-10 23:19 | XMS_ITS | Encounter Summary ---
Author Organization [facility] Address [address] [place] [address] Care Team Providers Care Group Marketing Vp Name Role Phone Alejandro Blevins MD Primary Care Provider [phone] Encounter Details Date Type Department Care Team (Late st Contact Info) Description 11/30/2022 GENWIt Message Enc [address] [place] [address] Roberta Alex MD [address] [place] [phone] Paperwork Social History Tobacco Use Types Packs/Day Years Used Date Smoking Tobacco: Every Day Cigarettes Smokeless Tobacco: Never Alcohol Use Standard Drinks/Week Comments Not Currently 0 (1 standard drink = 0.6 oz pur e alcohol) Comments No Sex and Gender Information Value Date Recorded Sex Assigned at Not on file Legal Sex Female 11:30 PM CAREER SERVICES COORDINATOR Gender Identity Female 11/10/2021 3:09 PM [...] Assessment Author Status No 07/30/2020 10:48 PM CAREER SERVICES COORDINATOR Acti ve * RETIRED Are you blind or do you have serious difficulty seeing, even when wearing glasses? Answer Date of Assessment Author Status No 07/30/2020 10:46 PM CAREER SERVICES COORDINATOR Acti ve * Do you have [...] Info) Description 11/06/2024 1:50 PM CDT Appointment [facility] [address] [place] [address] Roberta Alex MD [address] [place] [phone] 11/06/2024 2:00 PM CDT Office Visit [facility] [place] [address] Roberta Alex MD [address] [place] [phone] documented as of this encounter Visit Diagnoses Not on filedocumented in this encounter Additional Health Concerns Infection Onset Date Last Indicated Resolved Time MRSA 06/05/2021 06/05/2021 documented as of this encounter Care Teams Group Marketing Vp Relationship Specialty Start Date End Date Alejandro Blevins MD PCP - General FAMILY PRACTICE 12/10/19 documented as of this encounter
--- OUTSIDE RECORDS SUMMARY | 2024-10-10 23:29 | XMS_ITS ---
Author Organization Unknown Address [address] [place] [phone] Phone Care Team Providers Care Cloth Trimmer Hand Name Role Phone ZULLY Anaya Attending Unavailable [...] Cole Rae M.D. MZ: MZ Report ID: [id number] Reading Location: [place] [address] Social History Type Status Start Date End Date Code Code Syst em Smoking History Never smoker (Never Smoked) [id number] SNOMED CT Sex Female Hospital Discharge Instructions [...]
[2024-10-10] MEDS: PROCHLORPERAZINE EDISYLATE 10 MG/2 ML VIAL IM (23:37)
[2024-10-10] MEDS: KETOROLAC 30 MG/ML VIAL (*BKC) IM (23:37)
--- NOTE | 2024-10-10 23:47 | PC.NURSE ---
patient medicated per order, see MAR. given ice bag for her head and warm blankets provided. lights remain dimmed for comfort, call light within reach. ice chips and soda at bedside per request for when patient feels less nauseated.
--- NOTE | 2024-10-11 00:25 | PC.NURSE ---
ERP at bedside to reassess patient post rn internal medicine. patient asleep on stretcher. RN monitoring. call light within reach.
== END 2024-10-11 01:00 | disposition home or self-care (01) ==
PROVIDERS: Emergency Provider Internal Medicine Critical Care Medicine; PCP Family Medicine
DX: G43.909 Migraine, unspecified, not intractable, without status migrainosus (principal)
CPT/HCPCS: 70450; 96372; 99284; J0780; J1885

== ENCOUNTER 2024-12-19 19:46 | Emergency (ER) | payer OTHER, SELFPAY ==
[2024-12-19 19:46] VITALS: BP 135/89; PULSE 87; RESP 18; TEMP 35.9; O2SAT 97
--- OUTSIDE RECORDS SUMMARY | 2024-12-19 19:58 | XMS_ITS ---
Author Organization Unknown Address [address] [place] [phone] Phone Care Team Providers Care Charger Name Role Phone ZULLY Anaya Attending Unavailable [...] Cole Rae M.D. MZ: MZ Report ID: [id number] Reading Location: [place] [address] Social History Type Status Start Date End Date Code Code Syst em Smoking History Never smoker (Never Smoked) [id number] SNOMED CT Sex Female Hospital Discharge Instructions [...]
--- OUTSIDE RECORDS SUMMARY | 2024-12-19 19:58 | XMS_ITS | Clinical Summary ---
Author Organization [facility] Address [address] [place] [address] Care Team Providers Care Rib Stiffener And Heel Dipper Name Role Phone Alejandro Blevins MD Primary Care Provider [phone] Source Comments [facility],non-owned Affiliates and Associated Physician Practices is amultiple site organization consisting of ambulatory clinics and hospital sitesin [place], [place] and [place]. This disclosure is being madepursuant to the Care Everywhere program and may not contain all information available regarding this patient. Last updated 18.[facility] Allergies Active Allergy Reactions Criticality Noted Date Comments Bee Venom Anaphylaxis High 12/07/2019 Contrast-Iodinated Agents For Ct/Other Anaphylaxis High 02/04/2021 Shellfish Allergy Anaphylaxis High 12/07/2019 Medications * Be aware that medications may not be up to date on this document. Alwaysverify current medications with the patient. iron polysaccharides (NIFEREX 150) 150 MG capsule Take 1 capsule by mouth once daily 100 capsule 04/23/20 20 Active Additional Information Patient not taking.Reported on 01/14/2021 Cyanocobalamin 1000 MCG Take 1 tablet by mouth once daily 30 tablet 2 04/23/20 20 Active Additional Information Patient not taking.Reported on 01/14/2021 folic acid (FOLVITE) 1 MG tablet Take 1 tablet by mouth once daily 30 tablet 2 04/23/20 20 Active Additional Information Patient not taking.Reported on 01/14/2021 docusate sodium (COLACE) 100 MG capsule Take 1 capsule by mouth 2 times daily 60 capsule 1 04/23/20 20 Active Additional Information Patient not taking.Reported on 05/12/2020 ibuprofen (MOTRIN) 600 MG tablet Take 1 tablet by mouth every 6 hours as needed for Pain 40 tablet 1 05/01/20 20 Active Additional Information Patient not taking.Reported on 01/14/2021 clindamycin (CLEOCIN) 300 MG capsule 01/13/20 21 Active Acetaminophen-Codei ne 300-30 MG Take 1 tablet by mouth every 4 hours as needed Active Vit-Fe Fumarate-FA ( PLUS) 27-1 MG tablet Take 1 (one) tablet by mouth once daily 100 tablet 1 01/16/20 21 Active Additional Information Patient not taking.Reported on 02/04/2021 HYDROcodone-acetami nophen (NORCO) 10-325 MG tablet Take 750 tablets by mouth every 8 hours 02/25/20 21 Active amoxicillin-clavula carlitos (AUGMENTIN) 875-125 MG tablet Take 1,000 mg by mouth 3 times daily 03/25/20 21 Active Active Problems Patient Care Coordination No te Formatting of this note migh t be different from the original. [place] [employer] form completed. Diapers given. 06/02/2020 [...] on cytologic smear of cervix (ASC-H) Immunizations Immunization Administration Dates Next Due INFLUENZA VACCINE, QUADR. [...] Date Smoking Tobacco: Some Days Cigarettes 0.5 20.4 Started: 07/2004 Smokeless Tobacco: Never Tobacco Cessation:Ready to Q uit: No; Counseling Given: No Alcohol Use Standard Drinks/Week Comments Not Currently 0 (1 standard drink = 0.6 oz pur e alcohol) Comments No Sex and Gender Information Value Date Recorded Sex Assigned at Not on file Legal Sex Female 6:18 PM ALTITUDE CHAMBER TECHNICIAN Gender Identity Not on file Sexual Orientation Not on file Last Filed Vital Signs Vital Sign Reading Time Taken Comments Blood Pressure 108/71 08/19/2021 11:05 AM ALTITUDE CHAMBER TECHNICIAN Pulse 74 08/19/2021 11:05 AM ALTITUDE CHAMBER TECHNICIAN Temperature 36.2 C (97.2 F) 06/02/2020 8:43 AM ALTITUDE CHAMBER TECHNICIAN Respiratory Rate 18 04/23/2020 12:00 AM CDT Oxygen Saturation 99% 04/23/2020 8:30 AM CDT Inhaled Oxygen Concentration 25% 04/19/2020 8 :22 AM CDT Weight 67.1 kg (148 lb) 01/14/2021 8:35 AM CDT Height 160 cm (5' 3) 05/12/2020 10:20 AM CDT Body Mass Index 26.22 05/12/2020 10:20 AM CDT Plan of Treatment Health Maintenance Due Date Last Done Comments DTAP/TDAP/TD VACCINES (1 - Tdap) 2007 HEPATITIS B VACCINE (1 of 3 - 19+ 3-dose series) 2007 COVID-19 VACCINE (1 - 2023- season) 2024 DEPRESSION SCREENING 07/25/2024 INFLUENZA VACCINE (Season Ended) 2025 PAP with HPV 08/19/2026 08/19/2021, 05/12/2020 ZOSTER [...] IG LB+HPV APTIMA Routine 08/19/2021 11:34 AM ALTITUDE CHAMBER TECHNICIAN High grade squamous intraepithelial lesion (HGSIL), grade 3 WIL, on biopsy of cervix HIV-1 HIV-2 ANTIBODY + HIV P24 AG PANEL STAT 04/17/2020 8:57 PM CDT HEPATITIS C RNA QUANTITATIVE Routine 12/08/2019 7:03 AM CDT Anemia, unspecified type from Last 3 Months or Most Recently Relevant to Health Maintenance Results * PAP IG LB+HPV APTIMA (08/19/2021 11:34 AM ALTITUDE CHAMBER TECHNICIAN) Diagnosis Comment 08/22/2021 7:09 AM ALTITUDE CHAMBER TECHNICIAN [facility] ([facility]) Comment:NEGATIVE FOR INTRAEP ITHELIAL LESION OR MALIGNANCY. Specimen Adequacy Comment 022 7:09 AM ALTITUDE CHAMBER TECHNICIAN [facility] ([facility]) Comment: Satisfactory for evaluation. Endocervical and/or squamous metaplastic cells (endocervical component) are present. Performed by Comment 08/22/2021 7:09 AM ALTITUDE CHAMBER TECHNICIAN [facility] ([facility]) Comment:Nella Montes, Logistics/Shipper (ASCP) Comment . 08/22/2021 7:09 AM ALTITUDE CHAMBER TECHNICIAN [facility] ([facility]) Note Comment 08/22/2021 7:09 AM ALTITUDE CHAMBER TECHNICIAN [facility] ([facility]) Comment: The Pap smear is a screening test designed to aid in the detection of premalignant and malignant conditions of the uterine cervix. It is not a diagnostic procedure and should not be used as the sole means of detecting cervical cancer. Both false-positive and false-negative reports do occur. IGLBP CPT Code Automation Comment 08/22/2021 7:09 AM ALTITUDE CHAMBER TECHNICIAN [facility] ([facility]) Comment: This liquid based ThinPrep(R) pap test was screened with the use of an image guided system. Human papillomavirus Aptima Negative Negative 08/22/2021 7:09 AM [facility] ([facility]) Comment: This nucleic acid amplification test detects fourteen high-risk HPV types (16,18,31,33,35,39,45,51,52,56,58,59,66,68) without differentiation. Pathology/Cytolo gy ENTIRE ENDOCERVIX / Unknown Collection / Unknown 08/19/2021 11:34 AM ALTITUDE CHAMBER TECHNICIAN 08/19/2021 12:41 PM ALTITUDE CHAMBER TECHNICIAN Narrative [facility] ([facility]) - 08/22/2021 7:09 AM ALTITUDE CHAMBER TECHNICIAN Performed at: - [address] [id number] Crop Setting Out Machine Operator: Stephanie Lemus MD, Phone: [phone] Performed at: 02 - [address] [id number] Crop Setting Out Machine Operator: Stephanie Lemus MD, Phone: [phone] Specimen Comment: No. of containers..01 ThinPrep Vial us Adrienne Roth MD LAB - PATHOLOGY/CYTOLOGY O RDERABLES Final Result [facility] ([facility]) [address] [place] [address] * HIV-1 HIV-2 ANTIBODY + HIV P24 AG PANEL (04/17/2020 8:57 PM CDT) HIV1/2 Ab + P24 Ag Non Reactive Non Reactive 04/17/2020 10:02 PM CDT [facility] Blood BLOOD SPECIMEN / Unknown Venipuncture / Unknown 04/17/2020 8:57 PM CDT 04/17/2020 9:09 PM CDT Narrative [facility] - 04/17/2020 10:02 PM CDT No Laboratory evidence of HIV infection. us Mayuri Norton MD LAB - CHEMISTRY ORDERABLES Fin al Result [facility] [address] [id number] * HEPATITIS C RNA QUANTITATIVE (12/08/2019 7:03 AM CDT) Hepatitis C Virus Quantitation [id number] IU/mL 12/19/2019 6:08 AM CDT [facility] ([facility]) Hepatitis C Virus Log 10 6.217 log10 IU/mL 12/19/2019 6:08 AM CDT [facility] ([facility]) Test Information Comment 12/19/19 20 6:08 AM CDT [facility] ([facility]) Comment:The quantitative ran ge of this assay is 15 IU/mL to 100 million IU/mL. Blood BLOOD SPECIMEN / Unknown Lab Venipuncture / Unknown 12/08/2019 7:03 AM CDT 12/08/2019 7:48 AM CDT Narrative [facility] ([facility]) - 12/19/2019 6:08 AM CDT Performed at: [address] [place] [id number] Crop Setting Out Machine Operator: Kiran Guerra MD, Phone: [phone] Pattie Castellon MD LAB - CHEMISTRY ORDERABLES Final Result [facility] ([facility]) [address] [place] [address] from Last 3 Months or Most Recently Relevant to Health Maintenance Insurance MEDICAID [facility] Advance Directives * Full Code (Latest Code Status on File) Date Activated Date Inactivated Comments 04/18/2020 5:26 AM 04/23/2020 5:11 PM * Full Code Date Activated Date Inactivated Comments 04/17/2020 9:19 PM 04/18/2020 5:26 AM * Full Code Date Activated Date Inactivated Comments 12/08/2019 2:09 AM 12/09/2019 7:07 PM Care Teams Rib Stiffener And Heel Dipper Relationship Specialty Start Date End Date Alejandro Blevins MD [address] [place] [id number] PCP - General Family Medicine 12/07/19
--- NOTE | 2024-12-19 19:59 | ED.BACK ---
HPI - Back Pain/Injury General Chief Complaint: Back Pain/Injury Stated Complaint: back pain Time Seen by Provider: 12/19/24 19:59 Source: patient Mode of arrival: ambulatory Limitations: no limitations History of Present Illness HPI Narrative: 34-year-old female with migraine presents to the ED with -- acute low back pain which started 2 days ago. No radiation of the pain. no focal neuro deficits. No fever or chills. no dysuria or hematuria patient has been lifting heavy bags at work. MD elicited complaint: back pain Pertinent past history: prior back pain Onset (ago): day(s) ( Two days) Timing: constant Severity: moderate Similar Symptoms Previously: Yes Quality: aching Radiation: none Exacerbating factors: movement Relieving factors: immobilization Context: while lifting and turning/twisting Associated symptoms: denies other symptoms Work related injury: No Related Data Home Medications ?Medication ?Instructions ?Recorded ?Confirmed ?Last Taken ?Type buprenorphine 8 mg-naloxone 2 mg 1 tablet sublingual BID 11/28/22 07/07/24 Unknown History sublingual tablet clonazepam 1 mg tablet 1 mg PO Q12H anxiety 07/07/24 07/07/24 Unknown History hydroxyzine pamoate 100 mg capsule 100 mg PO Q8H 07/07/24 07/07/24 Unknown History Allergies Allergy/AdvReac Type Severity Reaction Status Date / Time bee venom protein (honey Allergy Swelling Verified 12/19/24 19:56 bee) (bees) shellfish derived Allergy Unknown Verified 12/19/24 19:56 Review of Systems Review of Systems: All systems reviewed & are unremarkable except as noted in HPI and below PMFSH Past Medical History Medical History History of kidney stones Chronic ITP (idiopathic thrombocytopenia) History of Migraine Surgical History Surgical History History of Social History Social History Smoking status: Never smoker Alcohol intake: never Substance use: current Substance use type: amphetamines Gender identity (if verbalized by the patient): Female Exam Narrative: vitals are stable Const: General: no acute distress Nutritional Appearance: well nourished Orientation/consciousness: patient oriented x3 Limitations: no limitations HENMT: Head: normal to inspection Ears: external ears normal Face/Nose/Sinus: Normal external nose present Face and sinus: normal facial exam Mouth: Yes Normal oral and palatal mucosa present Throat: posterior oropharynx normal Eyes: Conjunctivae: conjunctivae normal Pupils: Equal, round and reactive pupils present EOM: EOMs intact bilaterally Direct Ophthalmoscopy: no photophobia Neck: Neck: normal visual inspection, no lymphadenopathy and no meningeal signs Chest: Chest palpation & inspection: normal inspection of the chest Resp: Effort & Inspection: normal respiratory effort Auscultation: clear to auscultation bilaterally Cardio: Rate: regular rate Rhythm: regular rhythm GI: Auscultation: normal bowel sounds Other: no tenderness/ rigidity /rebound. : General: Yes no CVA tenderness Back/Spine/Pelvis: Back: no CVA tenderness Other: No spinal tenderness. Chest tenderness in the paraspinal muscles in the lumbar region. No motor or sensory loss in the lower extremities. SLR is negative. Skin: General skin exam: normal color Rashes: no rashes Wounds: no wounds Neuro: General: patient oriented x3, moves all extremities, no meningeal signs, no focal motor deficits and CN's II-XI intact bilaterally Cranial nerves: Yes Nystagmus not present Speech: normal speech Extrem: General: normal to inspection and no clubbing, cyanosis or edema Psych: Mental Status: mental status grossly normal Affect: normal affect Attitude: cooperative Course Course Emergency Course: Low back pain-- no spinal tenderness. secondary to lumbar strain. Patient wants to follow-up with her primary care physician. Vital Signs Vital signs: Vital Signs Temperature 35.9 C L 12/19/24 19:46 Pulse Rate 87 12/19/24 19:46 Respiratory Rate 18 12/19/24 19:46 Blood Pressure 135/89 12/19/24 19:46 Pulse Oximetry 97 12/19/24 19:46 Oxygen Delivery Room Air 12/19/24 19:46 Temperature 35.9 C L 12/19/24 19:46 Pulse Rate 87 12/19/24 19:46 Respiratory Rate 18 12/19/24 19:46 Blood Pressure 135/89 12/19/24 19:46 Pulse Oximetry 97 12/19/24 19:46 Oxygen Delivery Room Air 12/19/24 19:46 MDM - Back Pain/Injury MDM Narrative Medical decision making narrative: acute low back pain. Differential Diagnosis Differential diagnosis: Likely lumbar radiculopathy and sciatica Medical Records Attestation: I reviewed the patient's medical records. Discharge Plan Discharge Clinical Impression: Strain of lumbar region Patient Disposition: Home Condition: Stable Instructions: Antibiotic Form, Acute Low Back Pain (ED) Patient Language: [place] Prescriptions: No Action buprenorphine-naloxone 8-2 mg tablet, sublingual 1 tablet SUBLINGUAL BID clonazepam 1 mg tablet 1 mg PO Q12H hydroxyzine pamoate 100 mg capsule 100 mg PO Q8H azithromycin [Zithromax] 500 mg tablet 500 mg PO DAILY 3 Days Qty: 3 0RF Follow-up/Referrals: Alejandro Blevins MD [Primary Care Provider] - Stand Alone Forms: Work/School Release IP Time of Disposition: 20:13
[2024-12-19] MEDS: KETOROLAC 30 MG/ML VIAL (*BKC) IM (20:19)
--- OUTSIDE RECORDS SUMMARY | 2024-12-19 20:20 | XMS_ITS | Clinical Summary ---
Author Organization [facility] Address [address] [place] [address] Care Team Providers Care System Developer Associate Manager Name Role Phone Alejandro Blevins MD Primary Care Provider [phone] Source Comments [facility],non-owned Affiliates and Associated Physician Practices is amultiple site organization consisting of ambulatory clinics and hospital sitesin [place], [place], [place] and [place]. This disclosure is being madepursuant to the Care Everywhere program and may not contain all information available regarding this patient. Last updated 18.[facility] Allergies Active Allergy Reactions Criticality Noted [...] migh t be different from the original. [place] [employer] form completed. Diapers given. 06/02/2020 [...] on file Legal Sex Female 6:18 PM HANDS AND DIAL INSPECTOR Gender Identity Not on file Sexual Orientation Not on file Last Filed Vital Signs Vital Sign Reading Time Taken Comments Blood Pressure 108/71 08/19/2021 11:05 AM HANDS AND DIAL INSPECTOR Pulse 74 08/19/2021 11:05 AM HANDS AND DIAL INSPECTOR Temperature 36.2 C (97.2 F) 06/02/2020 8:43 AM HANDS AND DIAL INSPECTOR Respiratory Rate 18 04/23/2020 12:00 AM CDT [...] IG LB+HPV APTIMA Routine 08/19/2021 11:34 AM HANDS AND DIAL INSPECTOR High grade squamous intraepithelial lesion (HGSIL), grade 3 WIL, on biopsy of cervix HIV-1 HIV-2 ANTIBODY + HIV P24 AG PANEL STAT 04/17/2020 8:57 PM CDT HEPATITIS C RNA QUANTITATIVE Routine 12/08/2019 7:03 AM CDT Anemia, unspecified type from Last 3 Months or Most Recently Relevant to Health Maintenance Results * PAP IG LB+HPV APTIMA (08/19/2021 11:34 AM HANDS AND DIAL INSPECTOR) Diagnosis Comment 08/22/2021 7:09 AM HANDS AND DIAL INSPECTOR [facility] ([facility]) Comment:NEGATIVE FOR INTRAEP ITHELIAL LESION OR MALIGNANCY. Specimen Adequacy Comment 022 7:09 AM HANDS AND DIAL INSPECTOR [facility] ([facility]) Comment: Satisfactory for evaluation. Endocervical and/or squamous metaplastic cells (endocervical component) are present. Performed by Comment 08/22/2021 7:09 AM HANDS AND DIAL INSPECTOR [facility] ([facility]) Comment:Nella Montes, Batch And Furnace Manager (ASCP) Comment . 08/22/2021 7:09 AM HANDS AND DIAL INSPECTOR [facility] ([facility]) Note Comment 08/22/2021 7:09 AM HANDS AND DIAL INSPECTOR [facility] ([facility]) Comment: The Pap smear is a screening test designed to aid in the detection of premalignant and malignant conditions of the uterine cervix. It is not a diagnostic procedure and should not be used as the sole means of detecting cervical cancer. Both false-positive and false-negative reports do occur. IGLBP CPT Code Automation Comment 08/22/2021 7:09 AM HANDS AND DIAL INSPECTOR [facility] ([facility]) Comment: This liquid based ThinPrep(R) pap test was screened with the use of an image guided system. Human papillomavirus Aptima Negative Negative 08/22/2021 7:09 AM [facility] ([facility]) Comment: This nucleic acid amplification test detects fourteen high-risk HPV types (16,18,31,33,35,39,45,51,52,56,58,59,66,68) without differentiation. Pathology/Cytolo gy ENTIRE ENDOCERVIX / Unknown Collection / Unknown 08/19/2021 11:34 AM HANDS AND DIAL INSPECTOR 08/19/2021 12:41 PM HANDS AND DIAL INSPECTOR Narrative [facility] ([facility]) - 08/22/2021 7:09 AM HANDS AND DIAL INSPECTOR Performed at: - [address] [id number] Shaker Plate Operator: Stephanie Lemus MD, Phone: [phone] Performed at: 02 - [address] [id number] Shaker Plate Operator: Stephanie Lemus MD, Phone: [phone] Specimen Comment: No. of containers..01 ThinPrep Vial us Adrienne Roth MD LAB - PATHOLOGY/CYTOLOGY O RDERABLES Final Result [facility] ([facility]) [address] [place] [address] * HIV-1 HIV-2 ANTIBODY + HIV P24 AG PANEL (04/17/2020 8:57 PM CDT) HIV1/2 Ab + P24 Ag Non Reactive Non Reactive 04/17/2020 10:02 PM CDT [facility] Blood BLOOD SPECIMEN / Unknown Venipuncture / Unknown 04/17/2020 8:57 PM CDT 04/17/2020 9:09 PM CDT Narrative [facility] - 04/17/2020 10:02 PM CDT No Laboratory evidence of HIV infection. us Mayuri Norton MD LAB - CHEMISTRY ORDERABLES Fin al Result [facility] [address] [id number] * HEPATITIS C RNA QUANTITATIVE (12/08/2019 7:03 AM CDT) Hepatitis C Virus Quantitation [id number] IU/mL 12/19/2019 6:08 AM CDT [facility] ([facility]) Hepatitis C Virus Log 10 6.217 log10 IU/mL 12/19/2019 6:08 AM CDT [facility] ([facility]) Test Information Comment 12/19/19 20 6:08 AM CDT [facility] ([facility]) Comment:The quantitative ran ge of this assay is 15 IU/mL to 100 million IU/mL. Blood BLOOD SPECIMEN / Unknown Lab Venipuncture / Unknown 12/08/2019 7:03 AM CDT 12/08/2019 7:48 AM CDT Narrative [facility] ([facility]) - 12/19/2019 6:08 AM CDT Performed at: [address] [place] [id number] Shaker Plate Operator: Kiran Guerra MD, Phone: [phone] Pattie Castellon MD LAB - CHEMISTRY ORDERABLES Final Result [facility] ([facility]) [address] [place] [address] from Last 3 Months or Most Recently Relevant to Health Maintenance Insurance MEDICAID [facility]ENA [facility] Advance Directives * Full Code (Latest Code Status on File) Date Activated Date Inactivated Comments 04/18/2020 5:26 AM 04/23/2020 5:11 PM * Full Code Date Activated Date Inactivated Comments 04/17/2020 9:19 PM 04/18/2020 5:26 AM * Full Code Date Activated Date Inactivated Comments 12/08/2019 2:09 AM 12/09/2019 7:07 PM Care Teams System Developer Associate Manager Relationship Specialty Start Date End Date Alejandro Blevins MD [address] [place] [id number] PCP - General Family Medicine 12/07/19
--- OUTSIDE RECORDS SUMMARY | 2024-12-19 20:20 | XMS_ITS ---
Author Organization Unknown Address [address] [place] [phone] Phone Care Team Providers Care Life Insurance Actuary Name Role Phone ZULLY Anaya Attending Unavailable [...] Cole Rae M.D. MZ: MZ Report ID: [id number] Reading Location: [place] [address] Social History Type Status Start Date End Date Code Code Syst em Smoking History Never smoker (Never Smoked) [id number] SNOMED CT Sex Female Hospital Discharge Instructions [...]
[2024-12-19 20:49] VITALS: BP 134/87; PULSE 85; RESP 16; TEMP 36.6; O2SAT 98
== END 2024-12-19 20:49 | disposition home or self-care (01) ==
LOC: CHSED 20:18
PROVIDERS: Emergency Provider Internal Medicine Critical Care Medicine; PCP Family Medicine
DX: S39.012A Strain of muscle, fascia and tendon of lower back, initial encounter (principal); X50.0XXA Overexertion from strenuous movement or load, initial encounter; Y99.0 Civilian activity done for income or pay
CPT/HCPCS: 96372; 99283; J1885

== ENCOUNTER 2025-01-21 03:15 | Emergency (ER) | payer OTHER, SELFPAY ==
[2025-01-21 03:15] VITALS: BP 121/86; PULSE 93; RESP 18; TEMP 35.5; O2SAT 98
--- NOTE | 2025-01-21 03:18 | ED.HA ---
HPI - Headache General Chief Complaint: Headache Stated Complaint: migraine Time Seen by Provider: 01/21/25 03:18 Source: patient Mode of arrival: ambulatory Limitations: no limitations History of Present Illness HPI Narrative: Patient is a 34-year-old female with a history of migraines here with a typical migraine starting for 1 day. Pain is hollow cephalic. She has associated nausea and vomiting. Patient is on control. MD elicited complaint: headache and migraine Pertinent past history: migraines Onset (ago): day(s) ( One) Onset description: gradually Location: diffuse and generalized Severity: similar to previous episodes Pain scale (0-10): 8 Quality & Timing: aching, throbbing, sharp, steady and constant Exacerbating factors: exertion, movement of head/neck, sitting/standing, light and noise Relieving factors: rest and dark room Context: occurred at rest Associated symptoms: nausea, vomiting, photophobia and sensitivity to sound Treatments prior to arrival: migraine medication ( patient said she was taking more than prescribed dosing) Related Data Home Medications ?Medication ?Instructions ?Recorded ?Confirmed ?Last Taken ?Type buprenorphine 8 mg-naloxone 2 mg 1 tablet sublingual BID 11/28/22 07/07/24 Unknown History sublingual tablet clonazepam 1 mg tablet 1 mg PO Q12H anxiety 07/07/24 07/07/24 Unknown History hydroxyzine pamoate 100 mg capsule 100 mg PO Q8H 07/07/24 07/07/24 Unknown History Allergies Allergy/AdvReac Type Severity Reaction Status Date / Time bee venom protein (honey Allergy Swelling Verified 12/19/24 19:56 bee) (bees) shellfish derived Allergy Unknown Verified 12/19/24 19:56 Review of Systems Review of Systems: All systems reviewed & are unremarkable except as noted in HPI and below Constitutional: Constitutional: Reports no additional constitutional complaints Eyes: Eyes: Reports no additional eye complaints ENT: Reports system reviewed and no additional complaints, except as documented Cardiovascular: Cardiovascular: Reports no additional cardiovascular complaints Respiratory: Respiratory: Reports no additional respiratory complaints Gastrointestinal: Gastrointestinal: Reports no additional gastrointestinal complaints Genitourinary: Genitourinary: Reports no additional female genitourinary complaints Musculoskeletal: Musculoskeletal: Reports no additional musculoskeletal complaints Integumentary/Breasts: Skin/Breast: Reports system reviewed and no additional complaints, except as docu Neurologic: Reports system reviewed and no additional complaints, except as documented Psychiatric: Psychiatric: Reports no additional psychiatric complaints Endocrine: Endocrine: Reports no additional endocrine complaints Hematologic/Lymphatic: Hematologic/Lymphatic: Reports no additional hematologic/lymphatic complaints Allergic/Immunologic: Allergic/Immunologic: Reports no additional allergic/immunologic complaints PMFSH Past Medical History Medical History History of kidney stones Chronic ITP (idiopathic thrombocytopenia) History of Migraine Surgical History Surgical History History of Social History Social History Smoking status: Never smoker Alcohol intake: never Substance use: current Substance use type: amphetamines Gender identity (if verbalized by the patient): Female Exam Const: General: ill appearing Nutritional Appearance: well nourished Orientation/consciousness: patient oriented x3 Limitations: no limitations Other: acute pain distress HENMT: Head: normal to inspection Ears: external ears normal Face/Nose/Sinus: Normal external nose present Eyes: Conjunctivae: conjunctivae normal Pupils: Equal, round and reactive pupils present EOM: EOMs intact bilaterally Neck: Neck: normal visual inspection Chest: Chest palpation & inspection: normal inspection of the chest Resp: Effort & Inspection: normal respiratory effort and not labored Auscultation: clear to auscultation bilaterally and no crackles Cardio: Rate: regular rate Rhythm: regular rhythm Heart sounds: no murmurs GI: Inspection: non-distended GI Palp: Yes Soft to palpation and No Tenderness to palpation present (GI) Auscultation: normal bowel sounds : General: Yes bladder normal to palpation Back/Spine/Pelvis: Back: no CVA tenderness Skin: General skin exam: normal color Rashes: no rashes Wounds: no wounds Neuro: General: patient oriented x3, moves all extremities, no meningeal signs, no focal motor deficits and CN's II-XI intact bilaterally Cranial nerves: Yes Nystagmus not present Speech: normal speech Gait exam (Neuro): Normal gait present Extrem: General: normal to inspection Psych: Mental Status: mental status grossly normal Affect: normal affect Attitude: cooperative Course Vital Signs Vital signs: Vital Signs Temperature 35.5 C L 01/21/25 03:15 Pulse Rate 93 01/21/25 03:15 Respiratory Rate 18 01/21/25 03:15 Blood Pressure 121/86 01/21/25 03:15 Pulse Oximetry 98 01/21/25 03:15 Oxygen Delivery Room Air 01/21/25 03:15 Temperature 35.5 C L 01/21/25 03:15 Pulse Rate 75 01/21/25 04:28 Respiratory Rate 20 01/21/25 04:28 Blood Pressure 125/85 01/21/25 04:28 Pulse Oximetry 98 01/21/25 04:28 Oxygen Delivery Room Air 01/21/25 04:28 MDM - Headache MDM Narrative Medical decision making narrative: patient is a 34-year-old female with a migraine and nausea and vomiting for the past day. We will do triple therapy with Toradol Reglan and Benadryl IV. We will give her a bag of fluid. Discharge Plan Discharge Clinical Impression: Cephalgia Qualifiers: Headache type: unspecified Headache chronicity pattern: acute headache Intractability: not intractable Qualified Code(s): R51.9 - Headache, unspecified Patient Disposition: Home Condition: Stable Instructions: Migraine Headache (ED) Additional Instructions: please consider seeing a neurologist to assist with home medications for better control of your migraines. They can add medicine on a daily basis to keep control of the migraine. Patient Language: [place] Prescriptions: No Action buprenorphine-naloxone 8-2 mg tablet, sublingual 1 tablet SUBLINGUAL BID clonazepam 1 mg tablet 1 mg PO Q12H hydroxyzine pamoate 100 mg capsule 100 mg PO Q8H azithromycin [Zithromax] 500 mg tablet 500 mg PO DAILY 3 Days Qty: 3 0RF Follow-up/Referrals: Alejandro Blevins MD [Primary Care Provider] - Time of Disposition: 04:45
[2025-01-21] MEDS: diphenhydrAMINE HCl INJ 50 MG/ML VIAL 25 MG IV PUSH (03:35)
[2025-01-21] MEDS: KETOROLAC 30 MG/ML VIAL (*BKC) IV PUSH (03:37)
[2025-01-21] MEDS: SODIUM CHLORIDE 0.9% IV 1,000 ML 999 ML IV CONT (03:38)
[2025-01-21] MEDS: METOCLOPRAMIDE HCL INJ 10 MG/2 ML VIAL IV PUSH (03:38)
[2025-01-21 04:28] VITALS: BP 125/85; PULSE 75; RESP 20; O2SAT 98
[2025-01-21 05:00] VITALS: BP 136/79; PULSE 88; RESP 18; TEMP 36.6; O2SAT 97
== END 2025-01-21 05:00 | disposition home or self-care (01) ==
LOC: CHSED 04:47
PROVIDERS: Emergency Provider Emergency Medicine; PCP Family Medicine
DX: R51.9 Headache, unspecified (principal)
CPT/HCPCS: 96361; 96374; 96375; 99284; J1200; J1885; J2765; J7030